=== PATIENT | female | born 1945 | race Caucasian/White ===

== ENCOUNTER 2018-04-23 07:34 | Day surgery (SDC) | payer MEDICARE, BC, SELFPAY ==
--- NOTE | 2018-04-21 08:32 | W.PIPPEYE ---
History of Present Illness Chief Complaint: Progressive decreased vision, right eye Narrative: The patient is a 72-year-old lady who presented with complaints of progressive decreased vision in both eyes at both distance and near. On examination she was noted to have bilateral nuclear and posterior subcapsular cataracts, right eye worse than left with visual acuity of 20/80 in the right eye and significant glare disability. The option of cataract surgery was offered to the patient and she wished to proceed. NOTE: The Chief Complaint, HPI, Past Medical History, Past Surgical History, Family History, Social History, Medications, and complete Ophthalmic Exam with detailed Assessment and Plan have already been documented in the patient's outpatient ophthalmic record and are not covered again in detail here. PFSH Medical History Nuclear sclerotic cataract of right eye (Acute) Posterior subcapsular age-related cataract, right eye (Acute) Surgical History Biopsy of breast (~2000) Breast, Mastectomy (~2000) Colonoscopy - MAC Family History Mother Essential hypertension Father Essential hypertension Heart disease Hyperlipidemia Sister Hyperlipidemia Brother No problems noted. Grandfather Stroke Grandfather No problems noted. Grandmother No problems noted. Grandmother No problems noted. Social History Smoking/Tobacco Use Status: Never Meds Home Medications Medication Instructions Recorded Confirmed Type aspirin [Ecotrin] 81 mg PO DAILY tab-cap 11/21/12 04/19/18 History omega-3 fatty acids-fish oil [Fish 1 ea PO DAILY 11/21/12 04/19/18 History Oil Softgel] vitamin B complex [B Complex] 1 ea PO DAILY 01/28/13 04/19/18 History calcium carbonate-vitamin D3 1 ea PO DAILY 02/24/14 04/19/18 History [Caltrate 600 + D Tablet] fluticasone-salmeterol [Advair 1 puff INHALATION DAILY #3 inhaler 06/10/15 04/19/18 History 250/50 Diskus] hydrochlorothiazide 12.5 mg PO DAILY #90 tab-cap 09/07/15 04/19/18 History albuterol sulfate [ProAir HFA] 2 puff INHALATION BID 04/19/18 04/19/18 History amoxicillin 500 mg PO .Q8H 04/19/18 04/19/18 History cholecalciferol (vitamin D3) 1,000 unit PO DAILY 04/19/18 04/19/18 History [Vitamin D3] desonide 1 applic TOPICAL DAILY 04/19/18 04/19/18 History fluocinolone 30 ml TOPICAL DIRECTED 04/19/18 04/19/18 History ketoconazole 1 applic TOPICAL .2-3 X WEEK 04/19/18 04/19/18 History magnesium mg PO DAILY 04/19/18 History yvjcomxn-yrv-nezf-FA-lutein 1 tab PO DAILY 04/19/18 04/19/18 History [Centrum Silver Women] pravastatin 20 mg PO DAILY 04/19/18 04/19/18 History triamcinolone acetonide 1 applic TOPICAL BID PRN 04/19/18 04/19/18 History vitamin E 400 unit PO DAILY 04/19/18 04/19/18 History Allergies Allergy/AdvReac Type Severity Reaction Status Date / Time Iodinated Contrast- Oral and Allergy Intermediate SOB Unverified 01/30/18 10:57 IV Dye [Iodinated Contrast Media - IV Dye] Exam OCULAR EXAM:: Most recent ocular examination reveals visual acuity of 20/80 OD, 20/25 OS. Pupils equal, round, and reactive without afferent pupillary defect. Intraocular pressure is 13 OD, 14 OS. Extraocular motility is normal. Slit-lamp examination shows pupils dilating to 5.5 mm OU. 2+ nuclear with 2+ posterior subcapsular cataract OD. 1+ nuclear with 1+ posterior subcapsular cataract OS. Funduscopic examination shows disc cupping of 0.3 OU with good color. The optic nerves have good perfusion and normal color. The retinal vasculature is normal without significant tortuosity or abnormality. The maculas are normal in appearance with normal contour and foveal reflex appropriate for age. The peripheral retina and vitreous are normal. BRIGHTNESS ACUITY TESTING (BAT):: Brightness acuity testing of the right eye off 20/80. Low 20/70. Medium 20/80. High 20/100. Assessment and Plan (1) Posterior subcapsular age-related cataract, right eye: Current visit: No Status: Acute Assessment: Visually significant cataract, right eye. Plan: Cataract extraction with intraocular lens implantation, right eye (2) Nuclear sclerotic cataract of right eye: Current visit: No Status: Acute Assessment: Visually significant cataract, right eye. Plan: Cataract extraction with intraocular lens implantation, right eye Note: NOTE:: The details of the planned surgery, including the risks, indications,limitations,expectations,outcome and possible complications were explained to the patient. The patient understands the complications including, but not limited to: infection, hemorrhage, posterior dislocation of the lens or nuclear fragments which may require the intervention of a vitreoretinal surgeon, possible loss of the eye, or from anesthetic complications. The patient has been made aware of the option of not having surgery, that vision following surgery may not be equal to that prior to surgery, and that the planned surgery may not achieve the intended results. Following this discussion, which the patient appeared to understand, the patient wishes to proceed with cataract surgery with lens implantation of the affected eye to improve and maximize vision.
--- NOTE | 2018-04-21 08:35 | POEE_ITS ---
History of Present Illness Chief Complaint: Progressive decreased vision, right eye Narrative: The patient is a 72-year-old lady who presented with complaints of progressive decreased vision in both eyes at both distance and near. On examination she was noted to have bilateral nuclear and posterior subcapsular ca taracts, right eye worse than left with visual acuity of 20/80 in the right eye and significant glare disability. The option of cataract surgery was offered to the patient and she wished to proceed. NOTE: The Chief Complaint, HPI, Past Medical History, Past Surgical History, Family History, Social History, Medications, and complete Ophthalmic Exam with detailed Assessment and Plan have already been documented in the patient's outpatient ophthalmic record and are not covered again in detail here. PFS Medical History Nuclear sclerotic cataract of right eye (Acute) Posterior subcapsular age-related cataract, right eye (Acute) Surgical History Biopsy of breast (~2000) Breast, Mastectomy (~2000) Colonoscopy - MAC Family History Mother Essential hypertension Father Essential hypertension Heart disease Hyperlipidemia Sister Hyperlipidemia Brother No problems noted. Grandfather Stroke Grandfather No problems noted. Grandmother No problems noted. Grandmother No problems noted. Social History Smoking/Tobacco Use Status: Never Meds Home Medications Medication Instructions Recorded Confirmed Type aspirin [Ecotrin] 81 mg PO DAILY tab-cap 11/21/12 04/19/18 History omega-3 fatty acids-fish oil [Fish 1 ea PO DAILY 11/21/12 04/19/18 History Oil Softgel] vitamin B complex [B Complex] 1 ea PO DAILY 01/28/13 04/19/18 History calcium carbonate-vitamin D3 1 ea PO DAILY 02/24/14 04/19/18 History [Caltrate 600 + D Tablet] fluticasone-salmeterol [Advair 1 puff INHALATION DAILY #3 inhaler 06/10/15 04/19/18 History 250/50 Diskus] hydrochlorothiazide 12.5 mg PO DAILY #90 tab-cap 09/07/15 04/19/18 History albuterol sulfate [ProAir HFA] 2 puff INHALATION BID 04/19/18 04/19/18 History amoxicillin 500 mg PO .Q8H 04/19/18 04/19/18 History cholecalciferol (vitamin D3) 1,000 unit PO DAILY 04/19/18 04/19/18 History [Vitamin D3] desonide 1 applic TOPICAL DAILY 04/19/18 04/19/18 History fluocinolone 30 ml TOPICAL DIRECTED 04/19/18 04/19/18 History ketoconazole 1 applic TOPICAL .2-3 X WEEK 04/19/18 04/19/18 History magnesium mg PO DAILY 04/19/18 History gdxxwuuo-vnc-qwhk-FA-lutein 1 tab PO DAILY 04/19/18 04/19/18 History [Centrum Silver Women] pravastatin 20 mg PO DAILY 04/19/18 04/19/18 History triamcinolone acetonide 1 applic TOPICAL BID PRN 04/19/18 04/19/18 History vitamin E 400 unit PO DAILY 04/19/18 04/19/18 History Allergies Allergy/AdvReac Type Severity Reaction Status Date / Time Iodinated Contrast- Oral and Allergy Intermediate SOB Unverified 01/30/18 10:57 IV Dye [Iodinated Contrast Media - IV Dye] Exam OCULAR EXAM:: Most recent ocular examination reveals visual acuity of 20/80 OD, 20/25 OS. Pupils equal, round, and reactive without afferent pupillary defect. Intraocular pressure is 13 OD, 14 OS. Extraocular motility is normal. Slit- lamp examination shows pupils dilating to 5.5 mm OU. 2+ nuclear with 2+ posterior subcapsular cataract OD. 1+ nuclear with 1+ posterior subcapsular cataract OS. Funduscopic examination shows disc cupping of 0.3 OU with good color. The optic nerves have good perfusion and normal color. The retinal vasculature is normal without significant tortuosity or abnormality. The maculas are normal in appearance with normal contour and foveal reflex appropriate for age. The peripheral retina and vitreous are normal. BRIGHTNESS ACUITY TESTING (BAT):: Brightness acuity testing of the right eye off 20/80. Low 20/70. Medium 20/80. High 20/100. Assessment and Plan (1) Posterior subcapsular age-related cataract, right eye: Current visit: No Status: Acute Assessment: Visually significant cataract, right eye. Plan: Cataract extraction with intraocular lens implantation, right eye (2) Nuclear sclerotic cataract of right eye: Current visit: No Status: Acute Assessment: Visually significant cataract, right eye. Plan: Cataract extraction with intraocular lens implantation, right eye Note: NOTE:: The details of the planned surgery, including the risks, indications,limitations,expectations,outcome and possible complications were explained to the patient. The patient understands the complications including, but not limited to: infection, hemorrhage, posterior dislocation of the lens or nuclear fragments which may require the intervention of a vitreoretinal surgeon, possible loss of the eye, or from anesthetic complications. The patient has been made aware of the option of not having surgery, that vision following surgery may not be equal to that prior to surgery, and that the planned surgery may not achieve the intended results. Following this discussion, which the patient appeared to understand, the patient wishes to proceed with cataract surgery with lens implantation of the affected eye to improve and maximize vision.
[2018-04-23] MEDS: Tetracaine 0.5% 4 ML BTL OD ×4 (07:54→09:02)
[2018-04-23] MEDS: Tropicam./Phenyleph. (1/2.5%) 5 ML BTL OD ×3 (07:55→08:10)
[2018-04-23 07:56] VITALS: BP 131/81; PULSE 75; RESP 16; TEMP 36.5; O2SAT 99
[2018-04-23] MEDS: Lidocaine 2% Jelly 6 ML SYR (09:02)
[2018-04-23] MEDS: Balanced Salt Soln.-PLUS 500 ML BAG (09:08)
[2018-04-23] MEDS: Lidocaine 1% Pres-Free 5 ML VIAL (09:08)
[2018-04-23] MEDS: Povidone-Iodine Ophth 30 ML BTL (09:26)
--- NOTE | 2018-04-23 09:38 | W.PM.DSUDISC ---
Discharge Plan Discharge Details Attending Provider: Isreal Hall Primary Care Provider: Ranjit Fischer Home Meds and New Rx's Prescriptions: No Action aspirin [Ecotrin Low Strength] 81 MG tablet,delayed release (DR/EC) 81 mg PO DAILY RF: 0 Fish Oil Extra Strength 1 EACH capsule 1 ea PO DAILY RF: 0 vitamin B complex [B-Complex] 1 EACH tablet 1 ea PO DAILY RF: 0 calcium carbonate-vitamin D3 [Caltrate with Vitamin D3] 1 EACH tablet 1 ea PO DAILY RF: 0 Advair Diskus 1 EACH blister with device 1 puff Inhalation DAILY Qty: 3 RF: 4 hydrochlorothiazide 12.5 MG tablet 12.5 mg PO DAILY Qty: 90 RF: 4 desonide 0.05 % Cream 1 applic TOPICAL DAILY RF: 0 ketoconazole 2 % Shampoo 1 applic TOPICAL .2-3 X WEEK RF: 0 fluocinolone 0.01 % Shampoo 30 ml TOPICAL DIRECTED RF: 0 triamcinolone acetonide 0.1 % Cream 1 applic TOPICAL BID PRNRF: 0 magnesium 250 mg Tablet PO DAILY RF: 0 pravastatin 20 mg Tablet 20 mg PO DAILY RF: 0 ProAir HFA 90 mcg/actuation Hfa Aerosol Inhaler 2 puff INHALATION BID RF: 0 vitamin E 400 unit Capsule 400 unit PO DAILY RF: 0 cholecalciferol (vitamin D3) [Vitamin D3] 1,000 unit Capsule 1,000 unit PO DAILY RF: 0 Centrum Silver Women 8 mg iron-400 mcg-300 mcg Tablet 1 tab PO DAILY RF: 0 amoxicillin 500 mg Capsule 500 mg PO .Q8H RF: 0 Discharge Instructions Stand Alone Forms: Post-op Topical Cataract, Lisa [place] (DSU) DS: Diagnosis Discharge Diagnosis (1) Status post cataract extraction and insertion of intraocular lens of right eye: Status: Acute
[2018-04-23 09:49] VITALS: BP 119/63; PULSE 85; RESP 16; TEMP 37; O2SAT 95
--- NOTE | 2018-04-23 16:07 | W.PM.OP ---
Date of service: 04/23/18 Time of Service: 09:30 Operative Note PRE-OP DIAGNOSIS: Cataract, right eye PROCEDURE: Cataract extraction using phacoemulsification with intraocular lens implant, right eye SURGEON: Isreal Hall ANESTHESIA: MAC and local (sub-tenon's anesthetic infiltration) ESTIMATED BLOOD LOSS: 0 PATHOLOGY: none sent Patient was transported to: same day Patient's condition: stable Implants: Jarad and Jarad Vision / [employer] Tecnis ZCB00 Indications: Progressive decreased vision due to cataract, right eye Procedure Description: CATARACT SURGERY OPERATIVE REPORT PREOPERATIVE DIAGNOSIS: Nuclear/posterior subcapsular cataract, right eye POSTOPERATIVE DIAGNOSIS: Same OPERATION: Cataract extraction using phacoemulsification with posterior chamber intraocular lens implant, right eye. IOL: IOL Bilingual Receptionist/Model: J[employer]J Vision / Y[employer]ecnis ZCB00 IOL Power: + 19.0 diopters IOL Serial Number: [id number] Optic Diameter: 6.0mm Haptic/Overall Diameter: 13.0mm PHACO INFO: GelacioLabMindson Vision System with OZil and Active Fluidics Cumulative Dispersed Energy (CDE): 9.70 seconds SURGEON: Isreal Hall MD, CHICA ANESTHESIA: Monitored Anesthesia Care (MAC), with local sub-tenon's anesthetic infiltration COMPLICATIONS: None SPECIMENS: None INDICATIONS FOR PROCEDURE: The patient is a 72-year-old lady with history of progressive decreased vision in both eyes at both distance and near, right eye worse than left. She was noted to have moderate nuclear and posterior subcapsular cataract of the right eye with visual acuity of 20/80. The option of cataract surgery was offered to the patient and she wished to proceed. PROCEDURE: The correct surgical eye was identified and marked as the right eye and the pupil was dilated in the preoperative area using mydriatics and cycloplegics. The dilated pupil size was 7.0 mm. Oral sedation was administered in the form of an Imprimis MKO Melt (midazolam 3mg/ketamine 25mg/ondansetron 2mg). The patient was brought to the operating room where cardiopulmonary monitoring was instituted and surgical time-out was performed, confirming the correct operative eye and IOL power. Topical anesthesia was administered and ophthalmic povidone-iodine 5% was instilled into the conjunctival fornices. Lidocaine gel was applied to the cornea and the yasmine-ocular area was prepped with Betadine 10% solution and draped in the usual sterile fashion for intraocular surgery, including an aperture drape. A Tegaderm transparent film dressing was cut in half and used to cover the lashes and lid margins. Care was taken to sequester the lashes and lid margins under the Tegaderm dressing. A lid speculum was placed between the lids of the operative eye and the Laura-Marcus operating microscope was maneuvered into position. Gabriel scissors were then used to make a conjunctival buttonhole approximately 6mm posterior to the limbus in the inferonasal quadrant. Blunt dissection was carried out to expose bare sclera, and a blunt-tipped sub-tenon?s anesthesia cannula was introduced and passed posteriorly along the globe where non-preserved plain lidocaine was injected into posterior sub-Tenon?s space. A sideport knife was used to make a paracentesis port inferiortemporally, and the anterior chamber was filled with Healon GV. A 2.4mm keratome knife was used to create a half-thickness groove at the limbus and then to construct a three-plane near-clear corneal tunnel extending 2.0mm into clear cornea in the superiortemporal position. . A flap was raised on the anterior capsule and capsulorhexis forceps were used to complete a continuous curvilinear capsulorhexis of 5.0 mm. Balanced salt solution was then used to perform cortical cleaving hydrodissection and nuclear hydrodelineation until the lens could be freely rotated within the capsular bag. The lens nucleus was then disassembled and removed within the capsular bag and iris plane using phacoemulsification. Residual cortical material was removed using the 45-degree angled silicone I/A tip with 0.3mm port. The posterior capsule was carefully polished to remove as much residual lens epithelial cells as safely possible. Extensive polishing was undertaken on the capsule polishing setting. Some residual central posterior subcapsular plaque could not be safely removed. The capsular bag was then inflated and the anterior chamber deepened with viscoelastic. The lens implant described above was inserted into the capsular bag using the YAA [place] Injector. A Kuglen hook was used to dial the IOL into position. Residual viscoelastic was then removed first from posterior to the IOL, then from the anterior chamber using the I/A handpiece. The lens implant was noted to center nicely within the capsular bag. The incisions were stromally hydrated, and the anterior chamber was reformed using BSS. Then 0.4cc of moxifloxacin 1.5mg/ml were injected into the capsular bag and anterior chamber. The incisions were checked with a Weck spear and found to be secure. Several drops of ophthalmic povidone-iodine 5% were then applied to the eye followed by two drops of Imprimis combination moxifloxacin/dexamethasone solution. The drapes were removed and a clear plastic protective eye shield was placed over the eye. The patient was then returned to Same Day Surgery in stable condition.
--- NOTE | 2018-04-23 16:13 | ROE_ITS ---
Date of service: 04/23/18 Time of Service: 09:30 Operative Note PRE-OP DIAGNOSIS: Cataract, right eye PROCEDURE: Cataract extraction using phacoemulsification with intraocular lens implant, right eye SURGEON: Isreal Hall ANESTHESIA: MAC and local (sub-tenon's anesthetic infiltration) ESTIMATED BLOOD LOSS: 0 PATHOLOGY: none sent Patient was transported to: same day Patient's condition: stable Implants: Jarad and Jarad Vision / [employer] Tecnis ZCB00 Indications: Progressive decreased vision due to cataract, right eye Procedure Description: CATARACT SURGERY OPERATIVE REPORT PREOPERATIVE DIAGNOSIS: Nuclear/posterior subcapsular cataract, right eye POSTOPERATIVE DIAGNOSIS: Same OPERATION: Cataract extraction using phacoemulsification with posterior chamber intraocular lens implant, right eye. IOL: IOL Property Field Inspector/Model: J&J Vision / [employer]nis ZCB00 IOL Power: + 19.0 diopters IOL Serial Number: [id number] Optic Diameter: 6.0mm Haptic/Overall Diameter: 13.0mm PHACO INFO: GelacioSideStepon Vision System with OZil and Active Fluidics Cumulative Dispersed Energy (CDE): 9.70 seconds SURGEON: Isreal Hall MD, CHICA ANESTHESIA: Monitored Anesthesia Care (MAC), with local sub-tenon's anesthetic infiltration COMPLICATIONS: None SPECIMENS: None INDICATIONS FOR PROCEDURE: The patient is a 72-year-old lady with history of progressive decreased vision in both eyes at both distance and near, right eye worse than left. She was noted to have moderate nuclear and posterior subcapsular cataract of the right eye with visual acuity of 20/80. The option of cataract surgery was offered to the patient and she wished to proceed. PROCEDURE: The correct surgical eye was identified and marked as the right eye and the pupil was dilated in the preoperative area using mydriatics and cycloplegics. The dilated pupil size was 7.0 mm. Oral sedation was administered in the form of an Imprimis MKO Melt (midazolam 3mg/ketamine 25mg/ondansetron 2mg). The patient was brought to the operating room where cardiopulmonary monitoring was instituted and surgical time-out was performed, confirming the correct operative eye and IOL power. Topical anesthesia was administered and ophthalmic povidone-iodine 5% was instilled into the conjunctival fornices. Lidocaine gel was applied to the cornea and the yasmine-ocular area was prepped with Betadine 10% solution and draped in the usual sterile fashion for intraocular surgery, including an aperture drape. A Tegaderm transparent film dressing was cut in half and used to cover the lashes and lid margins. Care was taken to sequester the lashes and lid margins under the Tegaderm dressing. A lid speculum was placed between the lids of the operative eye and the Laura-Marcus operating microscope was maneuvered into position. Gabriel scissors were then used to make a conjunctival buttonhole approximately 6mm posterior to the limbus in the inferonasal quadrant. Blunt dissection was carried out to expose bare sclera, and a blunt-tipped sub-tenon?s anesthesia cannula was introduced and passed posteriorly along the globe where non- preserved plain lidocaine was injected into posterior sub-Tenon?s space. A sideport knife was used to make a paracentesis port inferiortemporally, and the anterior chamber was filled with Healon GV. A 2.4mm keratome knife was used to create a half-thickness groove at the limbus and then to construct a three-plane near-clear corneal tunnel extending 2.0mm into clear cornea in the superiortemporal position. . A flap was raised on the anterior capsule and capsulorhexis forceps were used to complete a continuous curvilinear capsulorhexis of 5.0 mm. Balanced salt solution was then used to perform cortical cleaving h ydrodissection and nuclear hydrodelineation until the lens could be freely rotated within the capsular bag. The lens nucleus was then disassembled and removed within the capsular bag and iris plane using phacoemulsification. Residual cortical material was removed using the 45-degree angled silicone I/A tip with 0.3mm port. The posterior capsule was carefully polished to remove as much residual lens epithelial cells as safely possible. Extensive polishing was undertaken on the capsule polishing setting. Some residual central posterior subcapsular plaque could not be safely removed. The capsular bag was then inflated and the anterior chamber deepened with viscoelastic. The lens implant described above was inserted into the capsular bag using the YAA [place] Injector. A Kuglen hook was used to dial the IOL into position. Residual viscoelastic was then removed first from posterior to the IOL, then from the anterior chamber using the I/A handpiece. The lens implant was noted to center nicely within the capsular bag. The incisions were stromally hydrated, and the anterior chamber was reformed using BSS. Then 0.4cc of moxifloxacin 1.5mg/ml were injected into the capsular bag and anterior chamber. The incisions were checked with a Weck spear and found to be secure. Several drops of ophthalmic povidone-iodine 5% were then applied to the eye followed by two drops of Imprimis combination moxifloxacin/dexamethasone solution. The drapes were removed and a clear plastic protective eye shield was placed over the eye. The patient was then returned to Same Day Surgery in stable condition.
== END 2018-04-23 10:04 | disposition home or self-care (01) ==
LOC: SUR 07:34
PROVIDERS: PCP Family Medicine; Visit Provider Ophthalmology
PROC: (CPT 66984; principal; 2018-04-23 09:30)
DX: H25.811 Combined forms of age-related cataract, right eye (principal)
CPT/HCPCS: 66984; V2632

== ENCOUNTER 2018-05-02 02:30 | Outpatient (CLI) | payer MEDICARE, BC, SELFPAY ==
[2018-05-02 10:29] LABS: Cholesterol 236 mg/dL (50-200); HDL Cholesterol 82 mg/dL (40-60); LDL CHOLESTEROL 135 mg/dL (<100); Triglyceride 79 mg/dL (30-150)
== END 2018-05-02 02:50 ==
PROVIDERS: Family Medicine; PCP Family Medicine; Visit Provider Family Medicine
DX: E78.5 Hyperlipidemia, unspecified (principal)
CPT/HCPCS: 36415; 80061; 83721

== ENCOUNTER 2018-11-23 02:19 | Outpatient (CLI) | payer MEDICARE, BC, SELFPAY ==
--- NOTE | 2018-11-23 09:30 | ETT_ITS ---
*[facility]* *[facility]* [address] [place] [address] Stress Electrocardiography Ramses protocol Date of study: 11/23/2018 *PATIENT PRESENTATION* Height: 157.5cm (62in) Blood Pressure: Weight: 54.5kg (120lb) BSA: 1.55m^2 Ordering physician: Ranjit Fischer Impressions: Normal study after maximal exercise. Indication: R06.09. History: REASON FOR TESTING: DYSPNEA ON EXERTION AND JAW PAIN. THE JAW PAIN IS USUALLY AT REST, AND IS BILATERAL WITHOUT ANY RADIATION OF THE PAIN. THE PAIN HAD BEEN HAPPINING 3-5 YEARS AGO, THEN STOPPED UNTIL RECURRING IN THE LAST 6 MONTHS ONLY ONCE. PMH: CATARACTS. OSTEOPENIA, BREAST CANCER, HYPERLIPIDEMIA, ESSENTIAL HYPERTENSION, DIVERTICULOSIS, ASTHMA. FAMILY HX: BROTHER- AL AND CVA, AICD/PACEMAKER. FATHER- HYPERTENSION, CAD, HYPERLIPIDEMIA. MOTHER- HYPERTENSION. SISTER-HYPERLIPIDEMIA. EXCERCISE: WALK, STRENGTH TRAINING 3X/WEEK. WELLNESS PROGRAM AT [facility] . SMOKING:NEVER SMOKER. Risk factors: Family history of coronary artery disease. Dyslipidemia. Cholesterol: 264mg/dl. HDL: 82mg/dl. LDL: 135mg/dl. Triglycerides: 79mg/dl. ALLERGIES: IODINATED CONTRAST MEDIA. MEDICATIONS:VIT E 400 UNITS DAILY, VIT B COMPLEX 1 DAILY, TRIAMSINOLONE CREAM NEEDED, PRAVASTATIN 20 MG DAILY, OMEGA-3 FATTY ACIDS 1 DAILY, CENTRUM SILVER WOMEN 1 DAILY, MAGNESIUM 1 DAILY, KETOCONAZOLE 1 APPLIC TOPICAL 2-3X/WEEK, HYDROCHLOROTHIAZIDE 12.5 MG DAILY, ADVAIR 250/50 DISKUS 1 PUFF DAILY, FLUOCINOLONE 1 APPLIC DAILY, DESONIDE TOPICAL DAILY, VIT D3 1000 UNITS DAILY,ASPIRIN 81 MG DAILY, ALBUTEROL SULFATE 2 PUFFS BID. Protocol: Ramses protocol. Baseline ECG: LAST EKG-08/11/14. SINUS RHYTHM, HR 67. TODAY'S EKG-SINUS RHYTHM, HR 74. Stress protocol: + +---+ +---+ !Stage !HR !BP (mmHg) !Sat! + +---+ +---+ !Baseline supine !74 !168/94 (119)!---! + +---+ +---+ !Baseline standing !86 !170/86 (114)!97%! + +---+ +---+ !Stage I; 1.7mph, 10degrees; 3 min !111!174/92 (119)!95%! + +---+ +---+ !Stage II; 2.5mph, 12degrees; 3 min!130!180/86 (117)!96%! + +---+ +---+ !Recovery; 1 min !150!192/98 (129)!---! + +---+ +---+ !Recovery; 3 min !83 !178/76 (110)!---! + +---+ +---+ !Recovery; 6 min !77 !176/82 (113)!---! + +---+ +---+ * Stress results: The rate-pressure product for the peak heart rate and blood pressure was 44174nr Hg/min. Stress ECG: EXCERCISE TESTING ENDED IN 7 MINS, 39 SECS. WHEN MAX HR EXCEEDED, MAX HR WAS 150, 101% OF TARGET. HYPERTENSIVE AT BASELINE, WHTI A HYPERTENSIVE BLOOD PRESSURE RESPONSE. METS: 9.62 ECTOPY: NONE NOTED. ANGINA: NO REPORTED CHEST PAIN OR PRESSURE. ISCHEMIA: NO ISCHEMIC CHANGES NOTED. FUNCTIONAL CAPACITY: ABOVE AVERAGE CAPACITY. Study data: Lee Ann Angel MD supervised and was readily available during the procedure. This study was interpreted by [facility]. Study status: Routine. Consent: The risks, benefits, and alternatives to the procedure were explained to the patient and informed consent was obtained. Procedure: Initial setup. A baseline ECG was recorded. Surface ECG leads and manual cuff blood pressure measurements were monitored. Heart sounds: Normal. Lung sounds: Normal. Treadmill exercise testing was performed using the Ramses protocol. Study completion: The patient tolerated the procedure well and was discharged from the lab. Discharge: The patient left the laboratory in stable condition. Birthdate: Patient birthdate: 1945. Sex: Gender: female. Study date: Study date: 11/23/2018. Study time: 00:01 AM. Signature Documentation: The Stress ECG portion of this study was interpreted by Lee Ann Angel MD. Electronically signed by Lee Ann Angel 11/23/2018 10:24
[2018-11-23 10:47] LABS: Abs Immature Grans 0.01 k/cumm (0.0-0.09); Absolute Basophil Count 0.04 k/cumm (0.0-0.2); Absolute Eosinophil Count 0.14 k/cumm (0.0-0.7); Absolute Lymphocyte Count 1.12 k/cumm (1.2-3.4); Absolute Monocyte Count 0.47 k/cumm (0.11-0.7); Absolute Neutrophil Count 3.55 k/cumm (1.2-6.7); Basophils % 0.8; Eosinophils % 2.6; HCT 43.4 % (36.0-46.0); HGB 14.8 g/dL (12.0-15.5); Immature Grans % 0.2; Mean Corp. HGB Concentration 34.1 g/dL (32.0-36.0); Mean Corpuscular Hemoglobin 30.7 pg (27.0-33.0); Mean Platelet Volume 9.9 fL (8.0-11.0); Monocytes % 8.8; Neutrophils % 66.6; Platelet Count 300 x1000/uL (130-400); RBC 4.82 m/cumm (4.00-5.20); RBC Distribution Width 12.8 % (11.7-14.6); White Blood Cell Count 5.33 k/cumm (4.4-10.8)
[2018-11-23 11:36] LABS: Calculated LDL 143 mg/dL; Cholesterol 247 mg/dL (50-200); HDL Cholesterol 80 mg/dL (40-60); Triglyceride 123 mg/dL (30-150)
== END 2018-11-23 02:39 ==
PROVIDERS: PCP Family Medicine; Visit Provider Family Medicine
DX: R06.09 Other forms of dyspnea (principal); R68.84 Jaw pain; E78.5 Hyperlipidemia, unspecified; R19.7 Diarrhea, unspecified
CPT/HCPCS: 36415; 80061; 83721; 93016; 93018; 85025; 93017

== ENCOUNTER 2018-12-07 04:10 | Outpatient (CLI) | payer MEDICARE, BC, SELFPAY ==
--- NOTE | 2018-12-07 | PFT_ITS ---
PULMONARY FUNCTION TEST REPORT Patient - Linda Serrano DATE OF SERVICE December 07, 2018 REQUESTING PROVIDER Ranjit Fischer M.D. INTERPRETATION OF STUDY Spirometry shows severe obstructive airways disease with significant bronchodilator response.. LUNG VOLUMES - Lung volumes show no evidence of restriction. DIFFUSION CAPACITY- Mildly reduced, which is normal when corrected to alveolar volume. AIRWAY RESISTANCE - Elevated. IMPRESSION Severe obstructive airways disease with significant bronchodilator response. This is associated with mild diffusion defect. Clinical correlation recommended. Yissel Cruz M.D. ANDREA/ T- 12/10/18
[2018-12-07] MEDS: Inhaler, Assist Device 1 EACH MC (13:42)
[2018-12-07] MEDS: Albuterol HFA 18 GM 200 PUFF INH IH (13:42)
== END 2018-12-07 04:30 ==
PROVIDERS: PCP Family Medicine; Visit Provider Family Medicine
DX: R06.09 Other forms of dyspnea (principal); Z87.09 Personal history of other diseases of the respiratory system
CPT/HCPCS: 94060; 94150; 94726; 94729

== ENCOUNTER 2018-12-11 01:06 | Outpatient (CLI) | payer MEDICARE, BC, SELFPAY ==
--- NOTE | 2018-12-11 07:30 | MERGE_ITS ---
*[facility]* *[facility]* [address] [place] [address] Date of study: 12/11/2018 Transthoracic Echocardiography M-mode, complete 2D, complete spectral Doppler, and color Doppler *STUDY CONCLUSIONS* Summary: 1. Left ventricle: The cavity size was normal. Wall thickness was normal. Systolic function was normal. The estimated ejection fraction was 60-65%. Wall motion was normal; there were no regional wall motion abnormalities. 2. Right ventricle: The cavity size was normal. Systolic function was normal. 3. Left atrium: The atrium was mildly dilated. 4. Inferior vena cava: The vessel was patent and normal in size. The respirophasic diameter changes were in the normal range (greater than or equal to 50%), consistent with normal central venous pressure. *PATIENT PRESENTATION* Height: 154.9cm (61in ) S/D Pressure: 142 / 79 Weight: 54.4kg (119.7lb ) BSA: 1.54m^2 Test start time: 07:40 AM. Test stop time: 08:40 AM. 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 This study was interpreted by [facility]. Pertinent images and digital data are archived for permanent storage and are available for subsequent review. No prior study was available for comparison. Study status: Routine. Transthoracic echocardiography. M-mode, complete 2D, complete spectral Doppler, and color Doppler. A Transthoracic Echocardiogram was performed. Scanning was performed from the parasternal, apical, subcostal, and suprasternal notch acoustic windows. Images were obtained using an [id number] cardiac ultrasound machine. Image quality was adequate. Study completion: The patient tolerated the procedure well. There were no complications. History: PMH: Dyspnea on exertion R06.09. *CARDIAC ANATOMY* Left ventricle: The cavity size was normal. Wall thickness was normal. Systolic function was normal. The estimated ejection fraction was 60-65%. Wall motion was normal; there were no regional wall motion abnormalities. Findings consistent with diastolic dysfunction. There was no evidence of elevated ventricular filling pressure by Doppler parameters. Aortic valve: Trileaflet; mildly thickened leaflets. Mobility was not restricted. Doppler: Transvalvular velocity was within the normal range. There was no stenosis. There was no significant regurgitation. VTI ratio of LVOT to aortic valve: 0.7. Valve area (VTI): 1.9cm^2. Indexed valve area (VTI): 1.3cm^2/m^2. Peak velocity ratio of LVOT to aortic valve: 0.71. Valve area (Vmax): 2cm^2. Indexed valve area (Vmax): 1.3cm^2/m^2. Mean velocity ratio of LVOT to aortic valve: 0.72. Valve area (Vmean): 2cm^2. Indexed valve area (Vmean): 1.3cm^2/m^2. Mean gradient (S): 4.2mm Hg. Peak gradient (S): 7.7mm Hg. Aorta: Aortic root: The aortic root was normal in size. Ascending aorta: The ascending aorta was normal in size. Mitral valve: Mildly calcified annulus. Mildly thickened leaflets. Mobility was not restricted. Doppler: Transvalvular velocity was within the normal range. There was no evidence for stenosis. There was trivial regurgitation. Valve area by pressure half-time: 2.6cm^2. Indexed valve area by pressure half-time: 1.7cm^2/m^2. Left atrium: The atrium was mildly dilated. Right ventricle: The cavity size was normal. Systolic function was normal. Pulmonic valve: The pulmonary valve appears to be grossly normal. Doppler: Transvalvular velocity was within the normal range. There was no evidence for stenosis. There was trivial regurgitation. Tricuspid valve: Structurally normal valve. Doppler: Transvalvular velocity was within the normal range. There was no evidence for stenosis. There was trivial regurgitation. Pulmonary artery: Poorly visualized. Pulmonary systolic pressure was in the range of 35mm Hg to 40mm Hg. Right atrium: The atrium was normal in size. Pericardium: There was no pericardial effusion. Systemic veins: Inferior vena cava: Well visualized. The vessel was patent and normal in size. The respirophasic diameter changes were in the normal range (greater than or equal to 50%), consistent with normal central venous pressure. Baseline ECG: Normal sinus rhythm. Measurements Left ventricle Value Reference LV ID, ED, PLAX 4.7 cm 3.5 - 6.0 LV ID, ES, PLAX 3.1 cm 2.1 - 4.0 LV PW thickness, ED, PLAX 0.9 cm LV end-diastolic volume, 1-p A2C 78 ml LV ejection fraction, 1-p A2C 56 % LV end-diastolic volume, 1-p A4C 69 ml LV ejection fraction, 1-p A4C 66 % LV e', lateral 0.072 m/sec LV E/e', lateral 7 LV e', medial 0.058 m/sec LV E/e', medial 9 LV e', average 0.065 m/sec LV E/e', average 8 Ventricular septum Value Reference IVS thickness, ED, PLAX 1.0 cm LVOT Value Reference LVOT ID, A-P 1.9 cm LVOT area 2.8 cm^2 LVOT peak velocity, S 0.99 m/sec LVOT mean velocity, S 0.71 m/sec LVOT VTI, S 22.9 cm LVOT peak gradient, S 3.9 mm Hg LVOT mean gradient, S 2.2 mm Hg Stroke volume (SV), LVOT DP 64 ml Stroke index (SV/bsa), LVOT DP 41 ml/m^2 Aortic valve Value Reference Aortic valve peak velocity, S 1.4 m/sec Aortic valve mean velocity, S 1 m/sec Aortic valve VTI, S 33.0 cm Aortic mean gradient, S 4.2 mm Hg Aortic peak gradient, S 7.7 mm Hg VTI ratio, LVOT/AV 0.7 Aortic valve area, VTI 1.9 cm^2 Velocity ratio, peak, LVOT/AV 0.71 Aortic valve area, peak velocity 2 cm^2 Velocity ratio, mean, LVOT/AV 0.72 Aortic valve area, mean velocity 2 cm^2 Aortic valve area/bsa, mean velocity 1.3 cm^2/m^2 Aorta Value Reference Aortic root ID, ED 2.9 cm Ascending aorta ID, A-P, S 3.3 cm Left atrium Value Reference LA ID, A-P, ES 3.9 cm LA ID/bsa, A-P (H) 2.6 cm/m^2 <=2.2 LA volume/bsa, ES, 1-p A4C 35 ml/m^2 LA volume, ES, 2-p 55 ml LA volume/bsa, ES, 2-p 36 ml/m^2 LA/aortic root ratio 1.37 Mitral valve Value Reference Mitral E-wave peak velocity 0.54 m/sec Mitral A-wave peak velocity 0.85 m/sec Mitral deceleration time (H) 294 ms 150 - 230 Mitral pressure half-time 85 ms Mitral E/A ratio, peak 0.64 Mitral valve area, PHT, DP 2.6 cm^2 Pulmonary veins Value Reference Pulmonary vein peak velocity, S 0.75 m/sec Pulmonary vein peak velocity, D 0.54 m/sec Pulmonary vein velocity ratio, peak, 1.37 S/D Pulmonary vein A-wave reversal peak 0.37 m/sec velocity Pulmonary vein A-wave reversal 180 ms duration Tricuspid valve Value Reference Tricuspid regurg peak velocity 3 m/sec Tricuspid peak RV-RA gradient 35.2 mm Hg Right atrium Value Reference RA area, ES, A4C 16 cm^2 8.3 - 19.5 Legend: (L) and (H) dolores values outside specified reference range. I have personally reviewed the images and have reviewed and edited the reported findings. Electronically signed by Lee Ann Angel 12/11/2018 11:57
== END 2018-12-11 01:26 ==
PROVIDERS: PCP Family Medicine; Visit Provider Family Medicine
DX: R06.09 Other forms of dyspnea (principal); I10 Essential (primary) hypertension; E78.5 Hyperlipidemia, unspecified
CPT/HCPCS: 93306

== ENCOUNTER 2019-02-04 16:18 | Outpatient (CLI) | payer MEDICARE, BC, SELFPAY ==
--- NOTE | 2019-02-04 15:30 | DI.RAD_ITS ---
EXAM: XR PELVIS AP INDICATION: PAIN AFTER FALL R52. COMPARISON: RIGHT HIP COMPLETE from 11/28/2011 TECHNIQUE: 2D digital imaging was performed. FINDINGS: The pelvic bones are intact. There is no evidence of a hip fracture.
== END 2019-02-04 16:38 ==
PROVIDERS: PCP Nurse Practitioner Family; Visit Provider Internal Medicine
DX: M25.551 Pain in right hip (principal)
CPT/HCPCS: 72170

== ENCOUNTER 2019-03-04 08:02 | Outpatient (CLI) | payer MEDICARE, BC, SELFPAY ==
[2019-03-05 10:07] LABS: Alpha 1 Antitrypsin,Serum 152 mg/dL (90-200)
== END 2019-03-04 08:22 ==
PROVIDERS: PCP Nurse Practitioner Family; Visit Provider Nurse Practitioner Family
DX: J44.9 Chronic obstructive pulmonary disease, unspecified (principal)
CPT/HCPCS: 36415; 82103

== ENCOUNTER 2019-05-31 01:15 | Outpatient (CLI) | payer MEDICARE, BC, SELFPAY ==
[2019-05-31 11:52] LABS: HCT 41.3 % (36.0-46.0); Mean Corp. HGB Concentration 33.9 g/dL (32.0-36.0); Mean Corpuscular Hemoglobin 30.8 pg (27.0-33.0); Mean Platelet Volume 9.8 fL (8.0-11.0); Platelet Count 318 x1000/uL (130-400); RBC 4.54 m/cumm (4.00-5.20); RBC Distribution Width 13.1 % (11.7-14.6)
[2019-06-03 11:23] LABS: IgE 15 IU/mL (<158)
== END 2019-05-31 01:35 ==
PROVIDERS: PCP Nurse Practitioner Family; Visit Provider Internal Medicine
DX: J45.909 Unspecified asthma, uncomplicated (principal)
CPT/HCPCS: 36415; 85027; 82785

== ENCOUNTER 2019-06-04 08:45 | Outpatient (CLI) | payer MEDICARE, BC, SELFPAY ==
[2019-06-04 09:14] LABS: Abs Immature Grans 0.01 k/cumm (0.0-0.09); Absolute Basophil Count 0.04 k/cumm (0.0-0.2); Absolute Eosinophil Count 0.24 k/cumm (0.0-0.7); Absolute Lymphocyte Count 1.36 k/cumm (1.2-3.4); Absolute Neutrophil Count 5.17 k/cumm (1.2-6.7); Basophils % 0.5; Eosinophils % 3.1; HCT 43.6 % (36.0-46.0); HGB 14.5 g/dL (12.0-15.5); Immature Grans % 0.1 %; Lymphocytes % 17.8; Mean Corp. HGB Concentration 33.3 g/dL (32.0-36.0); Mean Corpuscular Hemoglobin 30.4 pg (27.0-33.0); Mean Corpuscular Volume 91.4 fL (80-95); Mean Platelet Volume 9.8 fL (8.0-11.0); Monocytes % 10.5; Platelet Count 308 x1000/uL (130-400); RBC 4.77 m/cumm (4.00-5.20); RBC Distribution Width 13.3 % (11.7-14.6); White Blood Cell Count 7.62 k/cumm (4.4-10.8)
== END 2019-06-04 09:05 ==
PROVIDERS: PCP Nurse Practitioner Family; Visit Provider Internal Medicine
DX: J45.909 Unspecified asthma, uncomplicated (principal)
CPT/HCPCS: 36415; 85025

== ENCOUNTER 2019-09-29 22:08 | Emergency (ER) | payer MEDICARE, BC, SELFPAY ==
[2019-09-29 22:23] VITALS: BP 174/86; PULSE 82; RESP 21; TEMP 36.6; O2SAT 96
--- NOTE | 2019-09-29 22:30 | DI.CT_ITS ---
EXAM: CT ABDOMEN PELVIS W CLINICAL HISTORY: LLQ pain, loose stool, hx of diverticulosis. TECHNIQUE: Imaging Protocol: Axial computed tomography images with coronal and sagittal reformatted images were created and reviewed CONTRAST MATERIAL: Intravenous: Omnipaque 350 Contrast volume:80 ml Oral: / no COMPARISON: CT ABD PELVIS WITH CONTRAST from 03/17/2011 MR MRI - LUMBAR SPINE WO CONTRAST from 09/26/2011 CR XR PELVIS AP from 02/04/2019 FINDINGS: ABDOMEN: Lung Bases: Normal where visualized. Liver: Normal density. No measurable mass. Gallbladder and biliary tract: No radiodense calculus or dilation. Pancreas: The pancreas is again noted to be atrophic. The pancreatic duct is dilated. There are few punctate pancreatic calcifications. There is some fluid around the tail of the pancreas. The findi ngs could represent acute on chronic pancreatitis. Spleen: Normal. Kidneys: Normal size, contour and axis. No radiodense stones or obstructive uropathy. No masses seen. Adrenal glands: No masses seen. Abdominal Aorta: Abdominal portion non-dilated. PELVIS: Bladder: Symmetric distention, no gross wall thickening. Bowel: There is large quantity of stool seen in the cecum and ascending colon. Diverticulosis is not ed of the descending and sigmoid colon. There is no evidence of diverticulitis. There is mild nonspe cific dilatation of a few loops of small bowel low in the pelvis. No specific findings to suggest a o bstruction. Bones: Scoliosis and degenerative changes. Mild T10 compression fracture, unchanged from MRI from 20 12. Old right pubic ramus fracture. Reproductive organs: Uterine fibroids, unchanged. Lymph nodes: Unremarkable. Impression: Fluid around the tail of the pancreas may indicate acute pancreatitis. There is chronic dilatation o f the pancreatic duct. RADIATION DOSE DELIVERED: 741.47mGy.cm Total DLP DATA REPOSITORY: All CT scans at this facility are submitted to the National Radiology Data Registry (NRDR) Dose Index Registry (DIR) with the [employer] (ACR). RADIATION OPTIMIZATION: All CT scans at this facility use at least one of these dose optimization te chniques: automated exposure control; mA and/or kV adjustment per patient size (includes targeted exa ms where dose is matched to clinical indication); or iterative reconstruction.
--- NOTE | 2019-09-29 22:52 | W.ED.GENAD ---
Discharge Plan Disposition Patient Disposition: HOME Condition: Stable Discharge Details Chief Complaint: Abd Prob Clinical Impression: Ileus, Chronic pancreatitis Primary Care Provider: Zeny James ED Provider: Narciso Soni Home Meds and New Rx's Prescriptions: Continued aspirin [Ecotrin Low Strength] 81 MG tablet,delayed release (DR/EC) 81 mg PO DAILY RF: 0 vitamin B complex [B-Complex] 1 EACH tablet 1 ea PO DAILY RF: 0 calcium carbonate-vitamin D3 [Caltrate with Vitamin D3] 1 EACH tablet 1 ea PO DAILY RF: 0 hydrochlorothiazide 12.5 MG tablet 12.5 mg PO DAILY Qty: 90 RF: 4 omega 0-lfm-epr-fish oil [Fish Oil] 1,000 mg (120 mg-180 mg) capsule 2 cap PO DAILY RF: 0 magnesium oxide 400 mg magnesium capsule 400 mg PO DAILY RF: 0 fluticasone propion-salmeterol [Wixela Inhub] 500-50 mcg/dose blister with device 1 inh IH BID Qty: 60 RF: 4 fluticasone propionate [Flonase Allergy Relief] 50 mcg/actuation spray,suspension 2 spray TALIA DAILY PRNRF: 0 desonide 0.05 % Cream 1 applic TOPICAL DAILY RF: 0 pravastatin 20 mg Tablet 20 mg PO DAILY RF: 0 albuterol sulfate [ProAir HFA] 90 mcg/actuation Hfa Aerosol Inhaler 2 puff INHALATION BID RF: 0 vitamin E 400 unit Capsule 400 unit PO DAILY RF: 0 cholecalciferol (vitamin D3) [Vitamin D3] 1,000 unit Capsule 1,000 unit PO DAILY RF: 0 Centrum Silver Women 8 mg iron-400 mcg-300 mcg Tablet 1 tab PO DAILY RF: 0 Discharge Instructions Instructions: Ileus (ED) Additional Instructions: While it is not ideal for you to go home, it is what you have chosen. It is extremely important that if you have any worsening of your symptoms or vomiting or continued pain that you return immediately. For the next 24 to 36 hours please only have small frequent sips of liquids or Jell-O. This can include broth Gatorade Powerade water or tea. If your symptoms begin to improve you can then transition to taking more solid foods like applesauce, pudding, and small bites of crackers. If you do well with this for 24 hours you can then transition to eating larger amounts of crackers, bread, mashed potatoes and rice. Gradually continue in this way. If you notice any worsening of your symptoms, or any new symptoms such as vomiting, diarrhea, fever, chills, shortness of breath, chest pain, numbness, weakness, or fainting , please return immediately to the emergency department for reevaluation. Please follow up with your primary care provider as soon as possible for reassessment and reevaluation. As always, it was a pleasure participating in your medical care today. Referrals: Zeny James NP [Primary Care Provider] - Discharge Data Discharge Date/Time-TO BE ENTERED AT DEPARTURE: 09/30/19 00:55 Medical Decision Making <LUCIO Greenwood - Last Filed: 09/30/19 13:54> 73-year-old female with history of GERD, COPD, hyperlipidemia, hypertension, diverticulosis, right breast cancer, presents with 1 day history of left lower quadrant discomfort and a loose stool. Denies any other symptoms. Patient appears well, nontoxic. Abdomen certainly does not seem to be surgical in nature. I feel as though the most likely diagnosis is diverticulitis however certainly cannot rule out UTI, renal stone, appendicitis, colitis, etc. Pain is not out of proportion, likely no ischemic bowel. Will obtain routine laboratory values and obtain CT imaging. We discussed her contrast dye allergy. She denies any allergy. She reports that when she had her CT she felt a little funny, took a puff of her rescue inhaler and felt perfectly fine. She feels as though she can safely take IV contrast and understands that the imaging is better quality. Laboratory values reveal white blood cell count of 11.7 hematocrit 42.2 hemoglobin 14.7 platelet count 311. Sodium 134 potassium 3.4 creatinine 0.81, GFR greater than 60. Urine is yellow, clear, 40 ketones. Small leuk esterase. 0-2 white cells, negative red cells. Patient given 0.5 mg IV Dilaudid Awaiting CT of abdomen and pelvis with contrast. Medical Records Medical records reviewed: Yes I reviewed the patient's medical records. Lab Data Lab results reviewed: Yes I reviewed the patient's lab results. Lab results narrative: 09/29/19 22:56 Urine - Reflex from Ua Urine Culture - Pending Laboratory Tests Range/Units 09/29/19 09/29/19 09/29/19 22:55 22:55 22:56 WBC (4.4-10.8) k/cumm 11.70 H RBC (4.00-5.20) m/cumm 4.71 Hgb (12.0-15.5) g/dL 14.7 Hct (36.0-46.0) % 42.2 MCV (80-95) fL 89.6 MCH (27.0-33.0) pg 31.2 MCHC (32.0-36.0) g/dL 34.8 RDW (11.7-14.6) % 12.7 Plt Count (130-400) x1000/uL 311 MPV (8.0-11.0) fL 10.2 Immature Gran % % 0.2 Neutrophils % 74.5 Lymphocytes % 16.0 Monocytes % 8.3 Eosinophils % 0.7 Basophils % 0.3 Absolute Neutrophils (1.2-6.7) k/cumm 8.72 H Absolute Lymphocytes (1.2-3.4) k/cumm 1.87 Absolute Monocytes (0.11-0.7) k/cumm 0.97 H Absolute Eosinophils (0.0-0.7) k/cumm 0.08 Absolute Basophils (0.0-0.2) k/cumm 0.04 Sodium (136-145) mmol/L 134 L Potassium (3.5-5.1) mmol/L 3.4 L Chloride (98-107) mmol/L 96 L Carbon Dioxide (21.0-32.0) mmol/L 29.9 Anion Gap (3-11) mmol/L 8.1 BUN (7-18) mg/dL 11 Creatinine (0.55-1.02) mg/dL 0.81 Estimated GFR/1.73 m2 (mL/min/1.73m2) >= 60.00 Glucose (74-106) mg/dL 125 H Calcium (8.5-10.1) mg/dL 9.9 Total Bilirubin (0.2-1.0) mg/dL 0.8 AST (15-37) U/L 29 ALT (14-59) U/L 38 Alkaline Phosphatase (46-116) U/L 90 Total Protein (6.4-8.2) g/dL 7.7 Albumin (3.4-5.0) g/dL 4.2 Lipase (73-393) U/L 164 Urine Color (Yellow) Yellow Urine Clarity (Clear) Clear Urine pH (5-8) 8.5 H Ur Specific Malone (1.005-1.025) 1.020 Urine Protein (Negative) mg/dL Negative Urine Ketones (Negative) mg/dL 40 H Urine Blood (Negative) Negative Urine Nitrite (Negative) Negative Urine Bilirubin (Negative) Negative Urine Urobilinogen (Up TO 0.2) EU/dL 0.2 Ur Leukocyte Esterase (Negative) Small H Urine RBC (0-2) HPF Negative Urine WBC (0-5) HPF 0-2 Ur Epithelial Cells (Negative) HPF Negative Urine Crystals (Negative) HPF Rare amorphous Urine Bacteria (Negative) HPF Rare Urine Casts (Negative) LPF Negative Urine Mucus (Negative) Negative Urine Other (Negative) Negative Ur Culture Indicated? Yes Urine Glucose (Negative) mg/dL Negative <Narciso Soni DO - Last Filed: 09/30/19 01:01> Patient was signed out to me by my colleague Jaime, please refer to his HPI assessment plan physical exam. Signout was for reevaluation after imaging results. Imaging results have returned, CT scan shows mild pancreatic ductal dilatation with some other slight abnormalities concerning for mild acute on chronic pancreatitis. Also evidence of mild ileus versus partial early obstruction of the small bowel. No large obstruction. Is also small uterine myoma that is noted as well. On reassessment the patient's pain has resolved. She is able to tolerate small sips of water well without difficulty. She has had no vomiting whatsoever. Laboratory work-up shows no significant abnormalities, electrolytes are stable, renal function good. Bilirubin alk phos AST ALT and lipase are all normal. Urine shows no signs of infection. Does appear mildly dehydrated, she has been rehydrated with a liter of normal saline. She tolerated CT scan well otherwise. Repeat abdominal exam shows no evidence of acute surgical abdomen. With the patient's findings in the absence of vomiting, and her ability to tolerate p.o. currently, I did discuss with the patient admission/observation to the hospital , and at this time through notable discussion, weighing the risks and benefits, utilizing a shared decision making process, and with a very clear discussion on the benefit of admission and the risks associated with discharge including the unlikely but potential worst case scenario of or lifelong disability the patient has refused admission and would like to go home. Patient is of a appropriate age to make decisions. The patient is of sound mind, appears clinically sober, and has capacity to make decisions by my clinical exam. Respecting the patient's wishes, they will be discharged home. The patient does refer to social home concerns as to her reason for leaving. Of note she had no complications with the IV contrast, this was removed from her allergy list. We will discharge the patient respecting her wishes. I did discuss my recommendations for fluids for the next 24 hours followed by a gradual increase of soft foods. The patient has made it clear that she will return promptly if she has any return or worsening of her symptoms or any vomiting whatsoever. I made it very clear that I am available at any time during the night for contact to discuss her symptoms. I have extensively reviewed the treatment plan and discharge instructions with the patient. I have addressed all patient concerns at this time. The patient was made aware of what symptoms to monitor for that would warrant a return to the emergency department. Discussed the plan with the patient, they demonstrate verbal understanding and agreement with our assessment and plan at this time. Additionally I also did discuss the findings of the uterine myoma, and the importance of close follow-up with her PCP in regards to this and the chronic pancreatitis. Of note with her labs normal her symptoms certainly appear clinically inconsistent with acute pancreatitis or acute obstruction of the gallbladder. FINDINGS: Liver: Normal. No mass. Gallbladder and bile ducts: Normal. No calcified stones. No ductal dilation. Pancreas: Pancreatic ductal dilatation with punctate parenchymal or ductal calcifications noted. Peripancreatic stranding is noted. Findings are compatible with acute on chronic pancreatitis. Spleen: Normal. No splenomegaly. Adrenals: Normal. No mass. Kidneys and ureters: Normal. No hydronephrosis. Stomach and bowel: Colonic diverticulosis is present without evidence for inflammation. Mild fluidfilled dilatation of distal small bowel measures up to 2.2 cm with a collapsed appearance of the terminal ileum. Findings may reflect an ileus, versus an early/partial small bowel obstruction. Appendix: No evidence of appendicitis. Intraperitoneal space: Unremarkable. No free air. No significant fluid collection. Vasculature: Unremarkable. No abdominal aortic aneurysm. Lymph nodes: Unremarkable. No enlarged lymph nodes. Bladder: Unremarkable as visualized. Reproductive: Uterine myoma measures 2.3 cm on the left Slightly irregular low attenuating left adnexal region focus may reflect ovarian follicular cysts, hydrosalpinx, or an atypical subserosal myoma measuring up to 2.3 cm Bones/joints: Unremarkable. No acute fracture. Soft tissues: Unremarkable. IMPRESSION: 1. Pancreatic ductal dilatation with punctate parenchymal or ductal calcifications noted. Peripancreatic stranding is noted. Findings are compatible with acute on chronic pancreatitis. 2. Mild fluid-filled dilatation of distal small bowel measures up to 2.2 cm with a collapsed appearance of the terminal ileum. Findings may reflect an ileus, versus an early/partial small bowel obstruction. 3. Uterine myoma measures 2.3 cm on the left Slightly irregular low attenuating left adnexal region focus may reflect ovarian follicular cysts, hydrosalpinx, or an atypical subserosal myoma measuring up to 2.3 cm. Elective sonography could be performed as needed for further evaluation Thank you for allowing us to participate in the care of your patient. Dictated and Authenticated by: Raj Borja MD 09/30/2019 12:21 AM Eastern Time ([place] & [place]) HPI <LUCIO Greenwood - Last Filed: 09/30/19 13:54> General Mode of arrival: ambulatory. Date/Time Provider Initiated Documentation: 09/29/19 22:09. Limitations to Documentation: no limitations. Information obtained by: patient. HPI Narrative: 73-year-old female with history of COPD, GERD, hyperlipidemia, hypertension, history of right breast cancer, diverticulosis via colonoscopy roughly 3 years ago. She reports a loose stool this morning and left lower quadrant abdominal discomfort all day long that does fluctuate in intensity. She reports at max the pain has been severe. She denies nausea or vomiting. She denies diarrhea or constipation. She has never had diverticulitis before. Denies fever, chest pain, shortness of breath. Reports the pain does radiate into her left back. Denies bad food exposure or sick contacts. She did travel from [place] over the past 24 hours but no obvious contact with COVID positive patients. Related Data Home Medications Medication Instructions Recorded Confirmed aspirin [Ecotrin Low Strength] 81 mg PO DAILY tab-cap 11/21/12 09/30/19 vitamin B complex [B-Complex] 1 ea PO DAILY 01/28/13 09/30/19 calcium carbonate-vitamin D3 1 ea PO DAILY 02/24/14 09/30/19 [Caltrate with Vitamin D3] hydrochlorothiazide 12.5 mg PO DAILY #90 tab-cap 09/07/15 09/30/19 Centrum Silver Women 1 tab PO DAILY 04/19/18 09/30/19 albuterol sulfate [ProAir HFA] 2 puff INHALATION BID 04/19/18 09/30/19 cholecalciferol (vitamin D3) 1,000 unit PO DAILY 04/19/18 09/30/19 [Vitamin D3] desonide 1 applic TOPICAL DAILY 04/19/18 09/30/19 pravastatin 20 mg PO DAILY 04/19/18 09/30/19 vitamin E 400 unit PO DAILY 04/19/18 09/30/19 magnesium oxide 400 mg PO DAILY 02/13/19 09/30/19 omega 7-ilu-dbl-fish oil 1,000 mg 2 cap PO DAILY cap 02/13/19 09/30/19 (120 mg-180 mg) capsule fluticasone 500 mcg-salmeterol 50 1 inh IH BID #60 each 05/02/19 09/30/19 mcg/dose blistr powdr for inhalation fluticasone propionate 50 2 spray TALIA DAILY PRN 05/02/19 09/30/19 mcg/actuation nasal spray,suspension Previous Rx's Medication Instructions Recorded fluticasone 500 mcg-salmeterol 50 1 inh IH BID #60 each 05/02/19 mcg/dose blistr powdr for inhalation Allergies Allergy/AdvReac Type Severity Reaction Status Date / Time house dust mite Allergy Asthma Verified 02/13/19 11:20 pollen extracts Allergy Asthma Verified 02/13/19 11:20 General Stated Complaint: Abd Prob STEPHANIE: 3 Review of Systems <LUCIO Greenwood - Last Filed: 09/30/19 13:54> Constitutional Constitutional: Denies fatigue, Denies fever(s) and Denies headache(s) ENT Ears, Nose, Mouth, and Throat: Denies headache(s) Cardiovascular Cardiovascular: Denies chest pain and Denies dyspnea Respiratory Respiratory: Denies cough and Denies dyspnea Gastrointestinal Gastrointestinal: Reports abdominal pain, Denies constipation, Denies diarrhea, Denies nausea and Denies vomiting Genitourinary Genitourinary: Denies dysuria Musculoskeletal Musculoskeletal: Reports back pain Integumentary/Breasts Skin/Breast: Denies rash Neurologic Neurologic: Denies headache(s) Endocrine Endocrine: Denies fatigue PFSH <LUCIO Greenwood - Last Filed: 09/30/19 13:54> Medical History Basal cell carcinoma (Resolved) COPD (chronic obstructive pulmonary disease) (Chronic) Diverticulosis of colon (Inactive) Essential hypertension (Chronic) GERD (gastroesophageal reflux disease) (Chronic) Hyperlipidemia (Chronic) Malignant neoplasm of right breast (Inactive 2000) Invasive lobular carcinoma, [place]+, [place]-, s/p chemo, radiation, mastectomy. Osteopenia (Chronic) Dexa 2015 at [facility] [place] Osteoporosis (Resolved) Fosamax x 10 yrs Vitamin D deficiency (Resolved) Surgical History History of esophagogastroduodenoscopy (EGD) (Chronic ~2012) History of modified radical mastectomy of right breast (Acute 02/06/01) History of tonsillectomy (Chronic) S/P colonoscopy (Acute 01/07/14) Family History Mother , age 76 Depression Hypertension Father , age 68 Heart disease Hyperlipidemia Alcohol abuse Hypertension Sister Hyperlipidemia Breast cancer In her 50s Brother Depression Heart disease Hyperlipidemia Stroke Substance abuse Alcohol abuse Hypertension Myocardial infarction Maternal Grandfather Stroke Maternal Grandmother No problems noted. Paternal Grandfather No problems noted. Paternal Grandmother , At 92 Osteoporosis Social History Smoking/Tobacco Use Status: Never Second Hand Exposure: Yes Alcohol Intake: current Alcohol Intake frequency: a few times a month Alcohol type: wine and hard liquor Substance use type: does not use Caregiver/Support person: No Household members: none Housing: house Communication Needs: None Do you need help understanding health information?: Rarely Pets and animals: No Sexually active: No Do you think of yourself as: straight/heterosexual Current gender identity: female What is your relationship status?: How often do you talk on the phone with friends or family?: three or more times per week How often do you get together with friends or relatives?: twice per week How often do you attend pentecostal or jainism services?: 4 or more times per year Do you belong to any clubs or organized social groups?: yes Panel score (0-1 are the most socially isolated patients): 3 What type of physical activity do you participate in: walking and other Details: Wellness @PT Duration: 45-60 minutes/day Frequency: 3-4 times per week Marti/Jainism: Jehovah'S Witness Special marti needs: No Seatbelt use: always Helmet use: Yes Helmet use: sometimes Drive intox or ride w/intox emergency medical technician/driver: No Do you feel safe at home: Yes Do you feel safe in your relationship?: Yes History History 6 Para Hx # Term Pregnancies Multiple births Hx # Pregnancies Ectopic pregnancies AB induced Hx Number of Living Children AB spontaneous 6 Exam <LUCIO Greenwood - Last Filed: 09/30/19 13:54> Const General: cooperative, healthy appearing, comfortable and no acute distress Orientation: alert, awake and oriented x3 HENMT Head: normal to inspection, normocephalic and atraumatic Mouth: moist mucous membranes Eyes Conjunctivae: conjunctivae normal Neck Neck: normal visual inspection, full ROM, no meningeal signs, trachea midline and supple Resp Effort & Inspection: normal respiratory effort and able to speak in complete sentences Auscultation: clear to auscultation bilaterally Cardio Rate: regular rate Rhythm: regular rhythm GI Inspection: normal to inspection Palpation: soft, not firm, no guarding, no masses, not rigid and tender in the LLQ Auscultation: normal bowel sounds Back/Spine/Pelvis Back: No back tenderness Skin General skin exam: no rashes or lesions noted Neuro General: patient alert, patient awake, moves all extremities and no focal motor deficits Cognition: normal cognition Speech: speech normal Motor: muscle tone normal throughout Sensory Exam: no sensory deficits noted Extrem General: normal to inspection, full ROM and capillary refill normal Psych Appearance: grossly normal Mental Status: mental status grossly normal Course <LUCIO Greenwood - Last Filed: 09/30/19 13:54> Vital Signs Vital signs: Vital Signs Temperature 36.6 C 09/29/19 22:23 Pulse 82 09/29/19 22:23 Respiratory Rate 21 09/29/19 22:23 Blood Pressure 174/86 H 09/29/19 22:23 Pulse Oximetry 96 09/29/19 22:23 Temperature 36.6 C 09/29/19 22:23 Temperature Source Temporal Artery Scan 09/29/19 22:23 Pulse 82 09/29/19 22:23 Respiratory Rate 21 09/29/19 22:23 Respiratory Effort 09/29/19 22:26 Blood Pressure 174/86 H 09/29/19 22:23 Blood Pressure Position Supine 09/29/19 22:23 Pulse Oximetry 96 09/29/19 22:23 Oxygen Delivery Method Room Air 09/29/19 22:23 Oxygen Flow Rate 0 09/29/19 22:23 Pain Level 8 09/29/19 22:23 Sign Out <LUCIO Greenwood - Last Filed: 09/30/19 13:54> Sign Out Data: Sign Out Comment: Pending CT results, reevaluation, final disposition Last updated by Jaime Landrum PA at 09/29/19 23:54
[2019-09-29 22:59] VITALS: BP 160/76; PULSE 83; O2SAT 99
[2019-09-29] MEDS: Normal Saline 1,000 ML 125 ML IV (22:59)
[2019-09-29 23:01] VITALS: BP 176/83; PULSE 74; O2SAT 99
[2019-09-29 23:06] LABS: Bilirubin Negative (Negative); Blood Negative (Negative); Clarity Clear (Clear); Glucose Negative (Negative); Ketones 40 mg/dL (Negative); Leukocyte Esterase Small (Negative); Nitrite Negative (Negative); Urobilinogen 0.2 EU/dL (Up TO 0.2); pH 8.5 (5-8)
[2019-09-29 23:08] LABS: Abs Immature Grans 0.02 k/cumm (0.0-0.09); Absolute Eosinophil Count 0.08 k/cumm (0.0-0.7); Absolute Lymphocyte Count 1.87 k/cumm (1.2-3.4); Absolute Monocyte Count 0.97 k/cumm (0.11-0.7); Basophils % 0.3; Eosinophils % 0.7; HCT 42.2 % (36.0-46.0); HGB 14.7 g/dL (12.0-15.5); Immature Grans % 0.2 %; Mean Corp. HGB Concentration 34.8 g/dL (32.0-36.0); Mean Corpuscular Hemoglobin 31.2 pg (27.0-33.0); Mean Corpuscular Volume 89.6 fL (80-95); Mean Platelet Volume 10.2 fL (8.0-11.0); Monocytes % 8.3; Neutrophils % 74.5; Platelet Count 311 x1000/uL (130-400); RBC 4.71 m/cumm (4.00-5.20); RBC Distribution Width 12.7 % (11.7-14.6)
[2019-09-29 23:09] LABS: Absolute Basophil Count 0.04 k/cumm (0.0-0.2); Absolute Neutrophil Count 8.72 k/cumm (1.2-6.7)
[2019-09-29 23:16] VITALS: BP 179/74; PULSE 80; O2SAT 99
[2019-09-29 23:17] LABS: Bacteria Rare HPF (Negative); Epithelial Cells Negative HPF (Negative); Other Cells Negative (Negative); RBC Negative HPF (0-2); WBC 0-2 HPF (0-5)
[2019-09-29 23:18] LABS: C & S Indicated? Yes; Casts Negative LPF (Negative); Crystals Rare Amorphous HPF (Negative); Mucus Negative (Negative)
[2019-09-29 23:19] LABS: ALT 38 U/L (14-59); AST 29 U/L (15-37); Albumin 4.2 g/dL (3.4-5.0); Alkaline Phosphatase 90 U/L (46-116); Anion Gap 8.1 mmol/L (3-11); BUN 11 mg/dL (7-18); Bilirubin, Total 0.8 mg/dL (0.2-1.0); CO2 29.9 mmol/L (21.0-32.0); CREATININE 0.81 mg/dL (0.55-1.02); Calcium 9.9 mg/dL (8.5-10.1); Chloride 96 mmol/L (98-107); Glucose 125 mg/dL (74-106); Lipase 164 U/L (73-393); Potassium 3.4 mmol/L (3.5-5.1); Sodium 134 mmol/L (136-145); Total Protein 7.7 g/dL (6.4-8.2)
[2019-09-29 23:31] VITALS: BP 178/99; PULSE 75; O2SAT 98
[2019-09-29] MEDS: Omnipaque 350 MG/ML 100 ML BTL IJ (23:32)
[2019-09-29] MEDS: HYDROmorphone 2 MG/ML VIAL 0.5 MG IVP (23:40)
[2019-09-30 00:08] VITALS: BP 118/64; PULSE 72; RESP 16; O2SAT 99
[2019-09-30] MEDS: Normal Saline - Diluent 50 ML VIAL IV (00:09)
[2019-09-30] MEDS: Normal Saline Flush 10 ML SYR IVP (00:10)
--- NOTE | 2019-09-30 00:21 | DI.VRAD_ITS ---
PROCEDURE INFORMATION: Exam: CT Abdomen And Pelvis With Contrast Exam date and time: 09/29/2019 11:54 PM Age: 73 years old Clinical indication: Abdominal pain; Localized; Left lower quadrant (llq); Patient HX: Llq pain, loose stool, HX of diverticulosis; Additional info: HX of breast CA in 2000 TECHNIQUE: Imaging protocol: Computed tomography of the abdomen and pelvis with intravenous contrast. Radiation optimization: All CT scans at this facility use at least one of these dose optimization techniques: automated exposure control; mA and/or kV adjustment per patient size (includes targeted exams where dose is matched to clinical indication); or iterative reconstruction. Contrast material: OMNIPAQUE 350; Contrast volume: 80 ml; Contrast route: IV RAC; COMPARISON: CR XR PELVIS AP 02/04/2019 3:30 PM FINDINGS: Liver: Normal. No mass. Gallbladder and bile ducts: Normal. No calcified stones. No ductal dilation. Pancreas: Pancreatic ductal dilatation with punctate parenchymal or ductal calcifications noted. Peripancreatic stranding is noted. Findings are compatible with acute on chronic pancreatitis. Spleen: Normal. No splenomegaly. Adrenals: Normal. No mass. Kidneys and ureters: Normal. No hydronephrosis. Stomach and bowel: Colonic diverticulosis is present without evidence for inflammation. Mild fluid-filled dilatation of distal small bowel measures up to 2.2 cm with a collapsed appearance of the terminal ileum. Findings may reflect an ileus, versus an early/partial small bowel obstruction. Appendix: No evidence of appendicitis. Intraperitoneal space: Unremarkable. No free air. No significant fluid collection. Vasculature: Unremarkable. No abdominal aortic aneurysm. Lymph nodes: Unremarkable. No enlarged lymph nodes. Bladder: Unremarkable as visualized. Reproductive: Uterine myoma measures 2.3 cm on the left Slightly irregular low attenuating left adnexal region focus may reflect ovarian follicular cysts, hydrosalpinx, or an atypical subserosal myoma measuring up to 2.3 cm Bones/joints: Unremarkable. No acute fracture. Soft tissues: Unremarkable. IMPRESSION: 1. Pancreatic ductal dilatation with punctate parenchymal or ductal calcifications noted. Peripancreatic stranding is noted. Findings are compatible with acute on chronic pancreatitis. 2. Mild fluid-filled dilatation of distal small bowel measures up to 2.2 cm with a collapsed appearance of the terminal ileum. Findings may reflect an ileus, versus an early/partial small bowel obstruction. 3. Uterine myoma measures 2.3 cm on the left Slightly irregular low attenuating left adnexal region focus may reflect ovarian follicular cysts, hydrosalpinx, or an atypical subserosal myoma measuring up to 2.3 cm. Elective sonography could be performed as needed for further evaluation Dictated and Authenticated by: Raj Borja MD. Ordering:JAYLEN Sandoval MD
[2019-09-30 00:55] VITALS: BP 122/58; PULSE 59; RESP 16; O2SAT 98
== END 2019-09-30 00:55 | disposition home or self-care (01) ==
PROVIDERS: Physician Assistant; Emergency Provider Student in an Organized Health Care Education/Training Program; PCP Nurse Practitioner Family
DX: K86.1 Other chronic pancreatitis (principal); K56.7 Ileus, unspecified; R93.5 Abnormal findings on diagnostic imaging of other abdominal regions, including retroperitoneum; J44.9 Chronic obstructive pulmonary disease, unspecified; Z77.22 Contact with and (suspected) exposure to environmental tobacco smoke (acute) (chronic); I10 Essential (primary) hypertension; E86.0 Dehydration; D25.9 Leiomyoma of uterus, unspecified
CPT/HCPCS: 36415; 80053; 83690; 96361; 96374; 99285; 74177; 81003; 81015; 85025; 87086; 99284; J3490

== ENCOUNTER 2019-10-01 10:00 | Inpatient (IN) | payer MEDICARE, BC, SELFPAY ==
[2019-10-01] VITALS (11 sets, daily range): BP systolic 148–169; BP diastolic 66–110; PULSE 70–103; RESP 16–20; TEMP 36.3–37.5; O2SAT 78–98
--- NOTE | 2019-10-01 11:00 | DI.US_ITS ---
EXAM: US ABDOMEN LIMITED CLINICAL HISTORY: abdominal pain upper abdomen, r/o GB TECHNIQUE: Ultrasound performed using standard protocol. COMPARISON: CT ABD PELVIS WITH CONTRAST from 03/17/[address] ABDOMEN PELVIS W from 09/29/2019 FINDINGS: The gallbladder appears normal. No wall thickening, stones or pericholecystic fluid is seen. There is no sonographic Burch sign. The common bile duct measures 6 millimeters. No common duct stones are seen. The pancreatic duct is again noted to be markedly dilated, up to 14 millimeters. A cyst i s seen in the tail of the pancreas measuring 2.5 x 1.8 x 1.8 cm. This could represent communication w ith the dilated duct. The pancreatic duct was dilated on the scan in 2010 and appears to have increa sed since that time. A calcification is noted in the tail of the pancreas. No fluid is visible arou nd the pancreas by ultrasound. IMPRESSION: Dilated pancreatic duct. No obstructing mass or stone is visible. Question of a separate cyst in the tail versus continuation of the dilated duct. The biliary tree is nondilated. No gallstones or common duct stones are seen. DATA REPOSITORY:
--- NOTE | 2019-10-01 11:03 | ED.GENADUL_ITS ---
Discharge Plan Disposition Patient Disposition: [facility] INPATIENT Condition: Stable Discharge Details Chief Complaint: Abd Prob Clinical Impression: Abdominal pain Admit Date/Time: 10/02/19 10:32 Admit Provider: Jaime Neff Attending Provider: Jaime Neff Primary Care Provider: Zeny James ED Provider: Talia Canela Discharge Instructions Forms: Nursing Discharge Form Referrals: David Kovacs DO [ [facility] STAFF PHYSICIAN] - 10/11/19 4:00 pm Discharge Data Discharge Date/Time-TO BE ENTERED AT DEPARTURE: 10/01/19 15:48 Medical Decision Making <LUCIO Metzger - Last Filed: 10/03/19 15:01> Is a 74-year-old patient presented to the emergency room for complaints of persistent abdominal pain. Patient is complaining of abdominal pain which remains a 8 out of 10. Patient was seen in the emergency room on Monday ultimately was recommended patient be admitted to the hospital which she declined as she was unable to be admitted due to logistical reasons she had her grandchild with her. Patient was discharged home and ultimately has been trying to maintain bowel rest and hydrate by mouth however patient reports persistent 8 out of 10 pain, no relief in pain. Now has had a single episode of vomiting last night. Patient feeling dehydrated she is having difficulty maintaining hydration by mouth. Has no appetite for food or fluids. Patient reports upper abdominal pain worse on the left radiating toward the right and toward her back. Denies any chest pain difficulty breathing shortness of breath or wheezing. Has no fever or chills. Patient denies any significant bowel changes or changes in urination. Reviewed patient's previous evaluation in the emergency room. PT's previous CT FINDINGS: Liver: Normal. No mass. Gallbladder and bile ducts: Normal. No calcified stones. No ductal dilation. Pancreas: Pancreatic ductal dilatation with punctate parenchymal or ductal calcifications noted. Peripancreatic stranding is noted. Findings are compatible with acute on chronic pancreatitis. Spleen: Normal. No splenomegaly. Adrenals: Normal. No mass. Kidneys and ureters: Normal. No hydronephrosis. Stomach and bowel: Colonic diverticulosis is present without evidence for inflammation. Mild fluid-filled dilatation of distal small bowel measures up to 2.2 cm with a collapsed appearance of the terminal ileum. Findings may reflect an ileus, versus an early/partial small bowel obstruction. Appendix: No evidence of appendicitis. Intraperitoneal space: Unremarkable. No free air. No significant fluid collection. Vasculature: Unremarkable. No abdominal aortic aneurysm. Lymph nodes: Unremarkable. No enlarged lymph nodes. Bladder: Unremarkable as visualized. Reproductive: Uterine myoma measures 2.3 cm on the left Slightly irregular low attenuating left adnexal region focus may reflect ovarian follicular cysts, hydrosalpinx, or an atypical subserosal myoma measuring up to 2.3 cm Bones/joints: Unremarkable. No acute fracture. Soft tissues: Unremarkable. IMPRESSION: 1. Pancreatic ductal dilatation with punctate parenchymal or ductal calcifications noted. Peripancreatic stranding is noted. Findings are compatible with acute on chronic pancreatitis. 2. Mild fluid-filled dilatation of distal small bowel measures up to 2.2 cm with a collapsed appearance of the terminal ileum. Findings may reflect an ileus, versus an early/partial small bowel obstruction. 3. Uterine myoma measures 2.3 cm on the left Slightly irregular low attenuating left adnexal region focus may reflect ovarian follicular cysts, hydrosalpinx, or an atypical subserosal myoma measuring up to 2.3 cm. Elective sonography could be performed as needed for further evaluation We will plan to rehydrate IV as well as provide pain management via morphine with addition of Zofran. Patient agrees with this plan of care. Will recheck baseline labs including lipase. We will plan to obtain CT of right upper quadrant for concern of gallstones. Will obtain urinalysis. Patient's labs reveal no significant leukocytosis at this time, LFT changes or increase in bilirubin or lipase. Verbal report per oil refinery process technician reveals persistent ductal dilation measured at 14 mm with question of a cyst. Gallbladder appeared normal per verbal report again this is to be reviewed by radiology. Spoke with hospitalist regarding patient's presentation and need for admission to the hospital. Dr. Parker will admit the patient to [facility] but does request MRCP is ordered to try to expedite patient's imaging as well as consultation to surgery. MRCP ordered. Page to surgery. spoke with Dr. Foley of surgery and requested consultation. Reevaluation of the patient reveals patient's pain has improved to a 2 or 3 out of 10 after morphine. She does feel significantly more comfortable than her initial presentation. <Willem Rodriguez MD - Last Filed: 10/01/19 13:17> Patient seen, examined, and discussed with LUCIO Hoang. Patient has tenderness left abdomen clear with mid abdomen. Abdominal exam is nonrigid, no rebound tenderness. She has no rash on her abdomen. Heart regular rate and rhythm and lungs clear to auscultation bilaterally. Labs reviewed and nondiagnostic. Normal lipase and LFTs. Urinalysis pending. Official ultrasound report from today pending. final operations technician noted dilated pancreatic duct as noted on CT. No stones. I did review CT result from 09/29/2019: Mild quality of stool seen in the cecum and ascending colon. Consider constipation. Patient does note that she had a small loose bowel movement prior to that CT on Monday but has not had bowel movement since. Plan will be for admission for ongoing pain control, IV fluids with bowel rest and likely additional diagnostic testing. LUCIO Hoang spoke with Dr. Parker who will admit the patient and did request MRCP. MRCP will likely be performed tomorrow as patient had opioid for pain control today. I agree with treatment plan as discussed/documented. HPI <LUCIO Metzger - Last Filed: 10/03/19 15:01> General Date/Time Provider Initiated Documentation: 10/01/19 10:26 . HPI Narrative: Is a 73-year-old patient presenting to the emergency room for continued abdominal pain. Patient reports onset of abdominal pain 2 days ago. Patient reports upper abdominal pain worse on the left which does radiate toward the right in the upper abdomen. Patient reports a single episode of vomiting overnight. Reports bilious and clear vomitus. Patient reports abdominal pain 8 out of 10 persists has been constant. Patient reports decrease in appetite. Patient re ports she is feeling dehydrated she has been trying to take sips of fluids. Patient denies dysuria, urgency or frequency of urination. Patient reports mild decrease in bowel movements. Patient denies obvious abdominal bloating. Patient does report some radiation of abdominal pain toward the back on the right. Patient denies any fever, chills. Patient denies headache or dizziness. Patient denies any rash. Denies any chest pain, difficulty breathing or shortness of breath or wheezing. No increase in respiratory effort. Denies any lightheaded sensation. Patient was offered admission to the hospital due to her complaints of pain and CT findings when evaluated on Monday in the emergency room however she was caring for her grandchild at the time and was unable to be admitted due to logistical reasons. Patient is now returning requesting admission to the hospital due to persistence of her symptoms. Related Data Home Medications Medication Instructions Recorded Confirmed aspirin [Ecotrin Low Strength] 81 mg PO DAILY tab-cap 11/21/12 10/01/19 vitamin B complex [B-Complex] 1 ea PO DAILY 01/28/13 10/01/19 calcium carbonate-vitamin D3 1 ea PO DAILY 02/24/14 10/01/19 [Caltrate with Vitamin D3] Centrum Silver Women 1 tab PO DAILY 04/19/18 10/01/19 albuterol sulfate [ProAir HFA] 2 puff INHALATION BID 04/19/18 10/01/19 cholecalciferol (vitamin D3) 1,000 unit PO DAILY 04/19/18 10/01/19 [Vitamin D3] pravastatin 20 mg PO DAILY 04/19/18 10/01/19 vitamin E 400 unit PO DAILY 04/19/18 10/01/19 magnesium oxide 400 mg PO DAILY 02/13/19 10/01/19 omega 2-mmp-gir-fish oil 1,000 mg 1 cap PO DAILY cap 02/13/19 10/01/19 (120 mg-180 mg) capsule fluticasone 500 mcg-salmeterol 50 1 inh IH BID #60 each 05/02/19 10/01/19 mcg/dose blistr powdr for inhalation fluticasone propionate 50 2 spray TALIA DAILY PRN 05/02/19 10/01/19 mcg/actuation nasal spray,suspension Previous Rx's Medication Instructions Recorded fluticasone 500 mcg-salmeterol 50 1 inh IH BID #60 each 05/02/19 mcg/dose blistr powdr for inhalation Allergies Allergy/AdvReac Type Severity Reaction Status Date / Time house dust mite Allergy Asthma Verified 02/13/19 11:20 pollen extracts Allergy Asthma Verified 02/13/19 11:20 General Stated Complaint: Abd Prob STEPHANIE: 3 Review of Systems <LUCIO Metzger - Last Filed: 10/03/19 15:01> All systems reviewed & are unremarkable except as noted in HPI and below PFSH <LUCIO Metzger - Last Filed: 10/03/19 15:01> Medical History (Updated 10/01/19 @ 23:23 by Jaime Neff) Basal cell carcinoma (Resolved) COPD (chronic obstructive pulmonary disease) (Chronic) Diverticulosis of colon (Inactive) Essential hypertension (Chronic) GERD (gastroesophageal reflux disease) (Chronic) Hyperlipidemia (Chronic) Malignant neoplasm of right breast (Inactive 2000) Invasive lobular carcinoma, ER+, [place]-, s/p chemo, radiation, mastectomy. Osteopenia (Chronic) Dexa 2014 at [facility] [place] Osteoporosis (Resolved) Fosamax x 10 yrs Pancreatic duct dilated (Acute) Vitamin D deficiency (Resolved) Surgical History History of esophagogastroduodenoscopy (EGD) (Chronic ~2012) History of modified radical mastectomy of right breast (Acute 02/06/01) History of tonsillectomy (Chronic) S/P colonoscopy (Acute 01/07/14) Family History Mother , age 76 Depression Hypertension Father , age 68 Heart disease Hyperlipidemia Alcohol abuse Hypertension Sister Hyperlipidemia Breast cancer In her 50s Brother Depression Heart disease Hyperlipidemia Stroke Substance abuse Alcohol abuse Hypertension Myocardial infarction Maternal Grandfather Stroke Maternal Grandmother No problems noted. Paternal Grandfather No problems noted. Paternal Grandmother , At 92 Osteoporosis Social History (Updated 10/01/19 @ 23:16 by Jaime Neff) Smoking/Tobacco Use Status: Never Second Hand Exposure: Yes Alcohol Intake: current Alcohol Intake frequency: a few times a month Alcohol type: wine Substance use type: does not use Caregiver/Support person: No Household members: none Housing: house Communication Needs: None Do you need help understanding health information?: Rarely Pets and animals: No Sexually active: No Do you think of yourself as: straight/heterosexual Current gender identity: female What is your relationship status?: How often do you talk on the phone with friends or family?: three or more times per week How often do you get together with friends or relatives?: twice per week How often do you attend hoahaoism or gnosticism services?: 4 or more times per year Do you belong to any clubs or organized social groups?: yes Panel score (0-1 are the most socially isolated patients): 3 What type of physical activity do you participate in: walking and other Details: Wellness @PT Duration: 45-60 minutes/day Frequency: 3-4 times per week Marti/Baptist: [employer]ist Special marti needs: No Seatbelt use: always Helmet use: Yes Helmet use: sometimes Drive intox or ride w/intox armor reconnaissance vehicle driver: No Do you feel safe at home: Yes Do you feel safe in your relationship?: Yes History History 6 Para Hx # Term Pregnancies Multiple births Hx # Pregnancies Ectopic pregnancies AB induced Hx Number of Living Children AB spontaneous 6 Exam <LUCIO Metzger - Last Filed: 10/03/19 15:01> Narrative Exam Narrative: CONST: Uncomfortable appearing patient in no acute distress. Alert and oriented. HENMT: Head nomocephalic, normal to inspection. Atraumatic. Hearing grossly normal. Dentition normal. Normal posterior oropharynx. Uvula midline. EYES: General normal appearance. Alignment normal. Eyelids normal. Conjunctiva normal. Sclera normal. NECK: Normal visual inspection. FROM. No lymphadenopathy. Trachea midline. No Midline tenderness. CHEST: Normal insepection of the chest. RESP: Normal respiratory effort. Speaking full sentences. No cough. No wheezing. No retractions. Clear to auscaltation. Breath sound equal and present bilaterally. CARDIO: No JVD. Normal PMI. Regular Rate. Regular Rhythm. Normal peripheral pulses. GI: Normal inspection of abdomen. No distension. Soft. Left upper quadrant tenderness noted with palpation, mild epigastric pain with palpation, mild periumbilical pain with palpation. Mild right upper quadrant pain with palp ation. No significant lower abdominal tenderness elicited with palpation. Bowel sounds present in all 4 quadrants. No rebound. No gaurding. MUSCULOSKELETAL: Normal Gait. FROM of all extremities. Distal neurovascularly intact. Sensation intact distally. No lower extremity edema present. SKIN: Normal. Dry. No rashes. NEURO: Alert and awake. Speech clear. PSYCH: Normal affect. Cooperative. Course <LUCIO Metzger - Last Filed: 10/03/19 15:01> Vital Signs Vital signs: Vital Signs Temperature 36.8 C 10/01/19 10:04 Pulse 103 H 10/01/19 10:04 Respiratory Rate 18 10/01/19 10:04 Blood Pressure 148/110 H 10/01/19 10:04 Pulse Oximetry 98 10/01/19 10:04 Temperature 36.8 C 10/01/19 10:04 Temperature Source Skin 10/01/19 10:04 Pulse 103 H 10/01/19 10:04 Respiratory Rate 18 10/01/19 10:04 Blood Pressure 148/110 H 10/01/19 10:04 Blood Pressure Position Sitting 10/01/19 10:04 Pulse Oximetry 98 10/01/19 10:04 Oxygen Delivery Method Room Air 10/01/19 10:04 Oxygen Flow Rate 0 10/01/19 10:04 Pain Level 8 10/01/19 10:04
[2019-10-01] MEDS: Normal Saline 1,000 ML 500 ML IV (11:21)
[2019-10-01] MEDS: Ondansetron 4 MG/2 ML VIAL IVP (11:23)
[2019-10-01 11:53] LABS: ALT 32 U/L (14-59); AST 24 U/L (15-37); Albumin 3.9 g/dL (3.4-5.0); Alkaline Phosphatase 80 U/L (46-116); Anion Gap 10.5 mmol/L (3-11); BUN 12 mg/dL (7-18); Bilirubin, Total 0.9 mg/dL (0.2-1.0); CO2 26.5 mmol/L (21.0-32.0); Calcium 8.9 mg/dL (8.5-10.1); Chloride 97 mmol/L (98-107); Glucose 102 mg/dL (74-106); Lipase 88 U/L (73-393); Potassium 3.4 mmol/L (3.5-5.1); Sodium 134 mmol/L (136-145); Total Protein 7.5 g/dL (6.4-8.2)
[2019-10-01 11:59] LABS: Abs Immature Grans 0.02 k/cumm (0.0-0.09); Absolute Basophil Count 0.02 k/cumm (0.0-0.2); Absolute Eosinophil Count 0.05 k/cumm (0.0-0.7); Absolute Lymphocyte Count 1.48 k/cumm (1.2-3.4); Absolute Neutrophil Count 6.44 k/cumm (1.2-6.7); Basophils % 0.2; Eosinophils % 0.6; HCT 41.1 % (36.0-46.0); HGB 14.2 g/dL (12.0-15.5); Immature Grans % 0.2 %; Lymphocytes % 16.4; Mean Corp. HGB Concentration 34.5 g/dL (32.0-36.0); Mean Corpuscular Volume 89.7 fL (80-95); Mean Platelet Volume 10.7 fL (8.0-11.0); Monocytes % 11.1; Neutrophils % 71.5; Platelet Count 293 x1000/uL (130-400); RBC 4.58 m/cumm (4.00-5.20); RBC Distribution Width 12.6 % (11.7-14.6); White Blood Cell Count 9.01 k/cumm (4.4-10.8)
--- NOTE | 2019-10-01 12:15 | DI.MRI_ITS ---
EXAM: MR ABDOMEN WO insulin CLINICAL HISTORY: LUQ pain, pancreatic duct dilation TECHNIQUE: Multiplanar multisequence MRA of the Abdomen was performed. COMPARISON: CT CT ABDOMEN PELVIS W from 09/29/2019 US US ABDOMEN LIMITED from 10/01/2019 FINDINGS: Exam is limited by patient motion. There is a small amount of fluid around the tail of the pancreas. The pancreatic parenchyma is again noted to be atrophic. The pancreatic duct is dilated up to 14 millimeters and shows multiple small outpouchings. No definite separate cyst is identified. No renee d mass is visible. The intrahepatic bile ducts as well as common bile duct are not dilated. No gall stones are seen. IMPRESSION: Marked dilatation of the pancreatic duct. No visible obstructing mass. Small amount of fluid around the tail of the pancreas could indicate pancreatitis. The exam is limited due to patient motion. DATA REPOSITORY:
--- NOTE | 2019-10-01 15:44 | W.SURGCON ---
Date of service: 10/01/19 Time of Service: 15:45 Assessment and Plan Assessment and plan (1) Pancreatitis: Status: Chronic Assessment and plan: A\\ 74 year old with acute onset of abdominal pain in the yasmine-umbilical area and LUQ. CT scan, US and MRI all show dilated pancreatic duct. No stones, masses noted. There was inflammation and fluid noted around the tail of the pancreas. No history of alcohol abuse, last set of lipids where not too high. P\\ Continue with clear liquids and pain medication If no improvement would call GI and have them look at all the studies and see if they can come up with something else or whether they recommend an ERCP. I will check on patient tomorrow Qualifiers: Chronicity: acute Pancreatitis type: unspecified pancreatitis type Acute pancreatitis complication: no infection or necrosis Qualified Code(s): K85.90 - Acute pancreatitis without necrosis or infection, unspecified History of Present Illness History of Present Illness Chief Complaint: abdominal pain Narrative: Mrs. Serrano is a pleasant 74 year old female admitted to the hospital with diagnoses of pancreatitis. She tells me that she had acute onset of left upper quadrant abdominal pain on monday. she came to the ED where workup including CT scan revealed inflammation and fluid around the tail of the pancreas as well as a dilated pancreatic duct. Recommendation was made for patient to stay in the hospital but she was taking care of her 5 year old granddaughter so she did not stay. She went home and returned today due to continued pain. Her pain is left sided from umbilicus to left flank. It is a 8/10. She denies any other symptoms like N/V, unintentional weight loss, changes in bowel habits or history of pancreatitis. She does tell me that she was diagnosed with hyperlipidemia a few years ago and was started on medication. Last Lipid check was on 11/2018- Chol was 247, Trig was 123. She is not a drinker and never has been There is no family history of pancreatic cancer that she is aware of. EXAM: CT ABDOMEN PELVIS W FINDINGS: ABDOMEN: Lung Bases: Normal where visualized. Liver: Normal density. No measurable mass. Gallbladder and biliary tract: No radiodense calculus or dilation. Pancreas: The pancreas is again noted to be atrophic. The pancreatic duct is dilated. There are few punctate pancreatic calcifications. There is some fluid around the tail of the pancreas. The findings could represent acute on chronic pancreatitis. Spleen: Normal. Kidneys: Normal size, contour and axis. No radiodense stones or obstructive uropathy. No masses seen. Adrenal glands: No masses seen. Abdominal Aorta: Abdominal portion non-dilated. PELVIS: Bladder: Symmetric distention, no gross wall thickening. Bowel: There is large quantity of stool seen in the cecum and ascending colon. Diverticulosis is noted of the descending and sigmoid colon. There is no evidence of diverticulitis. There is mild nonspecific dilatation of a few loops of small bowel low in the pelvis. No specific findings to suggest a obstruction. Bones: Scoliosis and degenerative changes. Mild T10 compression fracture, unchanged from MRI from 2012. Old right pubic ramus fracture. Reproductive organs: Uterine fibroids, unchanged. Lymph nodes: Unremarkable. Impression: Fluid around the tail of the pancreas may indicate acute pancreatitis. There is chronic dilatation of the pancreatic duct. US done today- showed a normal Gallbladder, no stones and npo wall thickening. CBD was normal diameter. Again noted was a pancreatic duct dilatation MRI was done which showed no masses or stones. Again noted was a dilated pancreatic duct. Consults Consult date: 10/01/19 Requesting physician: Jaime Neff Review of Systems Constitutional Constitutional: Denies anorexia, Denies fever(s), Denies headache(s) and Reports poor appetite Eyes Eyes: Denies change in vision ENT Ears, Nose, Mouth, and Throat: Denies dysphagia, Denies headache(s) and Denies hoarseness Cardiovascular Cardiovascular: Denies chest pain, Denies chest pain at rest, Denies rapid heart rate, Denies irregular heart rhythm, Denies palpitations, Denies dyspnea and Denies dyspnea on exertion Respiratory Respiratory: Denies cough, Denies dyspnea, Denies dyspnea on exertion and Denies wheezing Gastrointestinal Gastrointestinal: Reports as per HPI, Denies melena, Denies dysphagia and Denies excessive flatus Genitourinary Genitourinary: Denies hematuria, Denies difficulty voiding and Denies urinary incontinence Musculoskeletal Musculoskeletal: Denies back pain and Denies muscle weakness Integumentary/Breasts Skin/Breast: Reports system reviewed and no additional complaints, except as documented Neurologic Neurologic: Denies headache(s) and Denies restless legs Psychiatric Psychiatric: Denies anxiety and Denies depression Endocrine Endocrine: Denies cold intolerance, Denies heat intolerance and Denies palpitations Hematologic/Lymphatic Hematologic/Lymphatic: Denies easy bleeding and Denies easy bruising Allergic/Immunologic Allergic/Immunologic: Denies wheezing [facility] Medical History Basal cell carcinoma (Resolved) COPD (chronic obstructive pulmonary disease) (Chronic) Diverticulosis of colon (Inactive) Essential hypertension (Chronic) GERD (gastroesophageal reflux disease) (Chronic) Hyperlipidemia (Chronic) Malignant neoplasm of right breast (Inactive 2000) Invasive lobular carcinoma, ER+, [place] s/p chemo, radiation, mastectomy. [place]openia (Chronic[place] [facility] [place]oporosis (Resolved) Fosamax x 10 yrs Vitamin D deficiency (Resolved) Surgical History History of esophagogastroduodenoscopy (EGD) (Chronic ~2012) History of modified radical mastectomy of right breast (Acute 02/06/01) History of tonsillectomy (Chronic) S/P colonoscopy (Acute 01/07/14) Family History Mother , age 76 Depression Hypertension Father , age 68 Heart disease Hyperlipidemia Alcohol abuse Hypertension Sister Hyperlipidemia Breast cancer In her 50s Brother Depression Heart disease Hyperlipidemia Stroke Substance abuse Alcohol abuse Hypertension Myocardial infarction Maternal Grandfather Stroke Maternal Grandmother No problems noted. Paternal Grandfather No problems noted. Paternal Grandmother , At 92 Osteoporosis Social History Smoking/Tobacco Use Status: Never Second Hand Exposure: Yes Alcohol Intake: current Alcohol Intake frequency: a few times a month Alcohol type: wine and hard liquor Substance use type: does not use Caregiver/Support person: No Household members: none Housing: house Communication Needs: None Do you need help understanding health information?: Rarely Pets and animals: No Sexually active: No Do you think of yourself as: straight/heterosexual Current gender identity: female What is your relationship status?: How often do you talk on the phone with friends or family?: three or more times per week How often do you get together with friends or relatives?: twice per week How often do you attend druze or denominational services?: 4 or more times per year Do you belong to any clubs or organized social groups?: yes Panel score (0-1 are the most socially isolated patients): 3 What type of physical activity do you participate in: walking and other Details: Wellness @PT Duration: 45-60 minutes/day Frequency: 3-4 times per week Marti/Synagogue: Church Special marti needs: No Seatbelt use: always Helmet use: Yes Helmet use: sometimes Drive intox or ride w/intox rolloff driver: No Do you feel safe at home: Yes Do you feel safe in your relationship?: Yes History History 6 Para Hx # Term Pregnancies Multiple births Hx # Pregnancies Ectopic pregnancies AB induced Hx Number of Living Children AB spontaneous 6 Exam Const General: cooperative, comfortable and no acute distress Orientation: alert and oriented x3 HENMT Head: normocephalic and atraumatic Eyes Pupils: PERRL Chest Chest: normal palpation of entire chest wall Breast inspection: normal inspection of the axillae and Other (s/p right mastectomy for breast cancer) Resp Effort & Inspection: normal respiratory effort Auscultation: clear to auscultation bilaterally Cardio Rate: regular rate Rhythm: regular rhythm Heart Sounds: no gallops, no murmurs and no rubs GI Palpation: soft, hepatosplenomegaly present and tender in the LUQ (no guarding or rebound) and periumbilically Auscultation: normal bowel sounds General: deferred Results Last Vital Signs Temp 99.5 F 10/01/19 14:59 Pulse 74 10/01/19 14:59 Resp 18 10/01/19 14:59 BP 155/76 H 10/01/19 14:59 Pulse Ox 98 10/01/19 14:59 Labs Result diagrams: 10/01/19 11:10 10/01/19 11:10 Labs: Laboratory Results - last 24 hr 10/01/19 10/01/19 11:10 11:10 WBC 9.01 RBC 4.58 Hgb 14.2 Hct 41.1 MCV 89.7 MCH 31.0 MCHC 34.5 RDW 12.6 Plt Count 293 MPV 10.7 Immature Gran % 0.2 Neutrophils % 71.5 Lymphocytes % 16.4 Monocytes % 11.1 Eosinophils % 0.6 Basophils % 0.2 Absolute Neutrophils 6.44 Absolute Lymphocytes 1.48 Absolute Monocytes 1.00 H Absolute Eosinophils 0.05 Absolute Basophils 0.02 Sodium 134 L Potassium 3.4 L Chloride 97 L Carbon Dioxide 26.5 Anion Gap 10.5 BUN 12 Creatinine 0.80 Estimated GFR/1.73 m2 >= 60.00 Glucose 102 Calcium 8.9 Total Bilirubin 0.9 AST 24 ALT 32 Alkaline Phosphatase 80 Total Protein 7.5 Albumin 3.9 Lipase 88
--- NOTE | 2019-10-01 15:50 | HPE_ITS ---
Date of service: 10/01/19 Time of Service: 15:50 Assessment and Plan Assessment and plan (1) Abdominal pain: Status: Acute Assessment and plan: Unclear etiology particularly given the negative CT scan and MRCP and abdominal ultrasound. Her LFTs and lipase are within normal limits therefore make it unlikely that this is secondary to acute biliary disease or alcohol. Previous studies have shown chronic dilatation of her pancreatic duct and although her MRCP is negative she may need to be evaluated by gastroenterology with an endoscopic ultrasound and ERCP. I will have radiology transfer her files to [facility] and discuss her case in the morning with gastroenterology. For now we will continue empiric treatment with antiemetics narcotic analgesics IV fluids and make her n.p.o. Qualifiers: Abdominal location: left upper quadrant Qualified Code(s): R10.12 - Left upper quadrant pain (2) Pancreatic duct dilated: Status: Acute Assessment and plan: As above (3) Pancreatitis: Status: Suspected Assessment and plan: Initial CT scan of her abdomen pelvis done 09/28 suggested pancreatic stranding and peripancreatic fluid around the tail the pancreas. However her abdominal ultrasound today did not demonstrate any peripancreatic fluid. MRCP is been negative and her lipase is negative. Therefore the diagnosis of acute pancreatitis is in question. We will send her films down to [facility] and have GI review in the morning. She may need an ERCP and endoscopic ultrasound for further clarification. Qualifiers: Chronicity: acute Pancreatitis type: unspecified pancreatitis type Acute pancreatitis complication: no infection or necrosis Qualified Code(s): K85.90 - Acute pancreatitis without necrosis or infection, unspecified History of Present Illness History of Present Illness Chief Complaint: Abdominal pain Narrative: 74-year-old female with history of asthma, hyperlipidemia, remote history of breast cancer status post right mastectomy with radiation and chemotherapy 18 years ago presented emergency department 2 days ago with nausea and left-sided upper quadrant abdominal pain with radiation to her back along with loss of appetite but no vomiting. She was evaluated in the emergency department and diagnosed with pancreatitis despite having a normal lipase. CT of the abdomen pelvis at that time showed fluid around the tail the pancreas along with chronic dilatation of pancreatic duct. This was compared to a prior CT scan of the abdomen pelvis from March 17, 2011. Labs at that showed mild leukocytosis 11,700 with no anemia. Chemistry profile that time showed a mild hypokalemia 3.4 normal renal function normal LFTs with no hyperbilirubinemia. And a normal lipase of 164. She was recommend that she be admitted to the hospital at that time however the patient had just picked up her 5-year-old grandchild from [place] the day before and did not want to leave her grandchild with strangers. Since that time the grandchild's parents have come up from [place] and picked the child up. Patient re-presented to the Er today with ongoing LUQ pain w/ radiation into her back and across the RUQ. Repeat labs done in the ER were unremarkable, specifically her lipase and LFT's and CBC were normal. CT of her abdomen and pelvis were not repeated however she underwent US of her abdomen which demonstrated dilated pancreatic duct w/out mass or stones but suggested possible cyst in the tail of the pancreas. She had no sonographic Burch sign. US demonstrated come calcifications in the tail of the pancreas. There was no peripancreatic fluid. Prior studies in 2010 also demonstrated pancreatic ductal dilatation. She underwent MRCP which showed no pancreatic or biliary mass nor stones. The patient was medicated w/ morphine and zofran and is relatively comforatable but with some slight increase in her pain since she was medicated in the ER. Dr. Foley, general surgeon, has been consulted and she is unclear as to the etiology of the patient's pain. The patient has not had a BM since Monday but this is not unusual for the patient and she reasons that she has had nothing to eat since Monday and did not expect to need to have a BM. Review of Systems All systems reviewed & are unremarkable except as noted in HPI and below [facility] Medical History Basal cell carcinoma (Resolved) COPD (chronic obstructive pulmonary disease) (Chronic) Diverticulosis of colon (Inactive) Essential hypertension (Chronic) GERD (gastroesophageal reflux disease) (Chronic) Hyperlipidemia (Chronic) Malignant neoplasm of right breast (Inactive 2000) Invasive lobular carcinoma, [place]+, [place]-, s/p chemo, radiation, mastectomy. Osteopenia (Chronic) Dexa 2014 at [facility] Osteoporosis (Resolved) Fosamax x 10 yrs Vitamin D deficiency (Resolved) Surgical History History of esophagogastroduodenoscopy (EGD) (Chronic ~2012) History of modified radical mastectomy of right breast (Acute 02/06/01) History of tonsillectomy (Chronic) S/P colonoscopy (Acute 01/07/14) Family History Mother , age 76 Depression Hypertension Father , age 68 Heart disease Hyperlipidemia Alcohol abuse Hypertension Sister Hyperlipidemia Breast cancer In her 50s Brother Depression Heart disease Hyperlipidemia Stroke Substance abuse Alcohol abuse Hypertension Myocardial infarction Maternal Grandfather Stroke Maternal Grandmother No problems noted. Paternal Grandfather No problems noted. Paternal Grandmother , At 92 Osteoporosis Social History (Updated 10/01/19 @ 23:16 by Jaime Neff) Smoking/Tobacco Use Status: Never Second Hand Exposure: Yes Alcohol Intake: current Alcohol Intake frequency: a few times a month Alcohol type: wine Substance use type: does not use Caregiver/Support person: No Household members: none Housing: house Communication Needs: None Do you need help understanding health information?: Rarely Pets and animals: No Sexually active: No Do you think of yourself as: straight/heterosexual Current gender identity: female What is your relationship status?: How often do you talk on the phone with friends or family?: three or more times per week How often do you get together with friends or relatives?: twice per week How often do you attend yarsanism or zoroastrian services?: 4 or more times per year Do you belong to any clubs or organized social groups?: yes Panel score (0-1 are the most socially isolated patients): 3 What type of physical activity do you participate in: walking and other Details: Wellness @PT Duration: 45-60 minutes/day Frequency: 3-4 times per week Marti/Gnosticist: [employer] marti needs: No Seatbelt use: always Helmet use: Yes Helmet use: sometimes Drive intox or ride w/intox class c driver: No Do you feel safe at home: Yes Do you feel safe in your relationship?: Yes History History 6 Para Hx # Term Pregnancies Multiple births Hx # Pregnancies Ectopic pregnancies AB induced Hx Number of Living Children AB spontaneous 6 Meds Home Medications and Allergies Home Medications Medication Instructions Recorded Confirmed Type aspirin [Ecotrin Low Strength] 81 mg PO DAILY tab-cap 11/21/12 10/01/19 History vitamin B complex [B-Complex] 1 ea PO DAILY 01/28/13 10/01/19 History calcium carbonate-vitamin D3 1 ea PO DAILY 02/24/14 10/01/19 History [Caltrate with Vitamin D3] Centrum Silver Women 1 tab PO DAILY 04/19/18 10/01/19 History albuterol sulfate [ProAir HFA] 2 puff INHALATION BID 04/19/18 10/01/19 History cholecalciferol (vitamin D3) 1,000 unit PO DAILY 04/19/18 10/01/19 History [Vitamin D3] pravastatin 20 mg PO DAILY 04/19/18 10/01/19 History vitamin E 400 unit PO DAILY 04/19/18 10/01/19 History magnesium oxide 400 mg PO DAILY 02/13/19 10/01/19 History omega 7-dtb-kxm-fish oil 1,000 mg 1 cap PO DAILY cap 02/13/19 10/01/19 History (120 mg-180 mg) capsule fluticasone 500 mcg-salmeterol 50 1 inh IH BID #60 each 05/02/19 10/01/19 Rx mcg/dose blistr powdr for inhalation fluticasone propionate 50 2 spray TALIA DAILY PRN 05/02/19 10/01/19 History mcg/actuation nasal spray,suspension Allergies Allergy/AdvReac Type Severity Reaction Status Date / Time house dust mite Allergy Asthma Verified 02/13/19 11:20 pollen extracts Allergy Asthma Verified 02/13/19 11:20 Exam Narrative Exam Narrative: Elderly female lying up in the bed in semi-way position. Alert and oriented person place time and circumstance. In mild distress secondary to her abdominal pain. HEENT is unremarkable. Specifically mucous membranes are moist without exudate. Neck is supple nontender no JVD normal carotid pulses no bruits Lungs are clear to auscultation. Heart regular rate and rhythm. No murmur rub or gallop. Abdomen with active bowel sounds soft with some mild tenderness in the left upper quadrant and epigastrium without rebound tenderness and no involuntary guarding. No palpable masses no bruits. Lower extremities without peripheral cyanosis or edema. Neurologic exam is grossly intact no focal motor or sensory deficits appreciated no cranial nerve abnormalities appreciated. Genitalia and rectal exam deferred. Chest wall is examined she status post right mastectomy. No palpable masses over the right chest wall. No palpable masses over the left breast. No left axillary adenopathy. No palpable lymph nodes in the right axilla. Results Labs Result diagrams: 10/01/19 11:10 10/01/19 11:10 Labs: Laboratory Results - last 24 hr 10/01/19 10/01/19 11:10 11:10 WBC 9.01 RBC 4.58 Hgb 14.2 Hct 41.1 MCV 89.7 MCH 31.0 MCHC 34.5 RDW 12.6 Plt Count 293 MPV 10.7 Immature Gran % 0.2 Neutrophils % 71.5 Lymphocytes % 16.4 Monocytes % 11.1 Eosinophils % 0.6 Basophils % 0.2 Absolute Neutrophils 6.44 Absolute Lymphocytes 1.48 Absolute Monocytes 1.00 H Absolute Eosinophils 0.05 Absolute Basophils 0.02 Sodium 134 L Potassium 3.4 L Chloride 97 L Carbon Dioxide 26.5 Anion Gap 10.5 BUN 12 Creatinine 0.80 Estimated GFR/1.73 m2 >= 60.00 Glucose 102 Calcium 8.9 Total Bilirubin 0.9 AST 24 ALT 32 Alkaline Phosphatase 80 Total Protein 7.5 Albumin 3.9 Lipase 88 Last Vital Signs Temp 37.5 C 10/01/19 14:59 Pulse 74 10/01/19 14:59 Resp 18 10/01/19 14:59 BP 155/76 H 10/01/19 14:59 Pulse Ox 98 10/01/19 14:59 COVID-19 Screening In the past 14 days, have you traveled outside of [place] or [place]?: YES Had IN PERSON contact w/suspected or confirmed C-19 person: Yes
[2019-10-01] MEDS: Enoxaparin 40 MG/0.4 ML SYR SC (16:36)
[2019-10-01] MEDS: POTASSIUM CHLORIDE/0.9% NACL 1,000 ML 100 MEQ IV (16:36)
[2019-10-01] MEDS: Normal Saline Flush 10 ML SYR IVP (17:02)
[2019-10-01] MEDS: HYDROmorphone 2 MG/ML VIAL IVP (18:09)
[2019-10-01] MEDS: Pravastatin 20 MG TAB PO (20:17)
[2019-10-01 20:48] LABS: COVID-19 RT-PCR UVMMC Result Negative (Negative)
[2019-10-01] MEDS: POTASSIUM CHLORIDE/0.9% NACL 1,000 ML 150 MEQ IV (22:43)
[2019-10-02] MEDS: HYDROmorphone 2 MG/ML VIAL IVP ×3 (01:52→18:52)
[2019-10-02 05:05] VITALS: BP 140/72; PULSE 79; RESP 18; TEMP 36.3; O2SAT 95
[2019-10-02] MEDS: POTASSIUM CHLORIDE/0.9% NACL 1,000 ML 150 MEQ IV ×3 (05:05→20:56)
[2019-10-02 07:48] LABS: Abs Immature Grans 0.02 k/cumm (0.0-0.09); Absolute Basophil Count 0.02 k/cumm (0.0-0.2); Absolute Eosinophil Count 0.08 k/cumm (0.0-0.7); Absolute Lymphocyte Count 1.07 k/cumm (1.2-3.4); Absolute Monocyte Count 0.79 k/cumm (0.11-0.7); Basophils % 0.3; HCT 41.5 % (36.0-46.0); HGB 13.8 g/dL (12.0-15.5); Immature Grans % 0.3 %; Lymphocytes % 13.4; Mean Corp. HGB Concentration 33.3 g/dL (32.0-36.0); Mean Corpuscular Hemoglobin 30.5 pg (27.0-33.0); Mean Corpuscular Volume 91.8 fL (80-95); Mean Platelet Volume 10.5 fL (8.0-11.0); Monocytes % 9.9; Neutrophils % 75.1; Platelet Count 223 x1000/uL (130-400); RBC 4.52 m/cumm (4.00-5.20); RBC Distribution Width 12.8 % (11.7-14.6); White Blood Cell Count 7.98 k/cumm (4.4-10.8)
[2019-10-02 08:09] LABS: ALT 28 U/L (14-59); AST 26 U/L (15-37); Albumin 3.5 g/dL (3.4-5.0); Alkaline Phosphatase 72 U/L (46-116); Anion Gap 8.4 mmol/L (3-11); BUN 7 mg/dL (7-18); Bilirubin, Total 0.6 mg/dL (0.2-1.0); CO2 25.6 mmol/L (21.0-32.0); CREATININE 0.69 mg/dL (0.55-1.02); Calcium 8.2 mg/dL (8.5-10.1); Chloride 102 mmol/L (98-107); Glucose 105 mg/dL (74-106); Potassium 4.3 mmol/L (3.5-5.1); Sodium 136 mmol/L (136-145); Total Protein 6.8 g/dL (6.4-8.2)
[2019-10-02] MEDS: Aspirin E.C. 81 MG TABEC PO (09:23)
[2019-10-02] MEDS: Omega-3 Fatty Acids 1000 MG CAP PO (09:23)
[2019-10-02] MEDS: Magnesium Oxide 400 MG TAB PO (09:23)
[2019-10-02] MEDS: Multivitamin w/Minerals TAB 1 TAB PO (09:23)
[2019-10-02] MEDS: Vitamin E 400 UNITS CAP PO (09:24)
--- NOTE | 2019-10-02 10:28 | W.PM.PROGNOT ---
Date of Service Date of service: 10/02/19 Time of Service: 10:33 Assessment and Plan Assessment and plan (1) Pancreatitis: Status: Suspected Assessment and plan: Continues with abdominal pain Labs unremarkable Continue current treatment Recommend consulting with GI at [facility] No surgical interventions needed at this time We will sign off for now. Please re-consult if needed Qualifiers: Chronicity: acute Pancreatitis type: unspecified pancreatitis type Acute pancreatitis complication: no infection or necrosis Qualified Code(s): K85.90 - Acute pancreatitis without necrosis or infection, unspecified (2) Pancreatic duct dilated: Status: Acute Assessment and plan: has been present since CT scan 2010 Subjective Subjective Interval history since last seen: Mrs. Serrano is doing about the same. Pain has not improved. She is still requiring Morphine. Tolerating clear liquids without increase in pain. No new symptoms Exam GI Inspection: normal to inspection Palpation: soft, no hepatosplenomegaly and tender (mild, no guarding or rebound- LUQ and yasmine-umbilical) Objective Objective Clinical Data: Abnormal lab results 10/01/19 10/01/19 10/02/19 Range/Units 11:10 11:10 07:35 Absolute Lymphocytes (1.2-3.4) k/cumm Absolute Monocytes 1.00 H (0.11-0.7) k/cumm Sodium 134 L (136-145) mmol/L Potassium 3.4 L (3.5-5.1) mmol/L Chloride 97 L (98-107) mmol/L Calcium 8.2 L (8.5-10.1) mg/dL 10/02/19 Range/Units 07:35 Absolute Lymphocytes 1.07 L (1.2-3.4) k/cumm Absolute Monocytes 0.79 H (0.11-0.7) k/cumm Sodium (136-145) mmol/L Potassium (3.5-5.1) mmol/L Chloride (98-107) mmol/L Calcium (8.5-10.1) mg/dL Vital Signs Temperature 97.3 F L 10/02/19 05:05 Temperature Source Temporal Artery Scan 10/02/19 05:05 Pulse 79 10/02/19 05:05 Pulse Rhythm Regular 10/02/19 00:15 Respiratory Rate 18 10/02/19 05:05 Respiratory Effort Non-Labored 06/17/20 00:15 Respiratory Depth Normal 10/02/19 00:15 Respiratory Pattern Normal 10/02/19 00:15 Blood Pressure 140/72 10/02/19 05:05 Blood Pressure Mean 93 10/01/19 13:17 Blood Pressure Position Sitting 10/01/19 10:04 Pulse Oximetry 95 10/02/19 05:05 Oxygen Delivery Method Room Air 10/02/19 05:05 Oxygen Flow Rate 0 10/02/19 05:05 Pain Level 2 10/02/19 05:05 Intake & Output 10/01/19 10/01/19 10/02/19 11:59 23:59 11:59 Intake Total 1896.667 / 6977.274 2890 / 1555 Output Total 700 / 700 300 / 300 Balance 1196.667 / 1972.019 6456 / 1255 Weight 120 lb 119 lb 15.997 oz Intake: IV 1896.667 / 1896.667 955 / 955 Oral 600 / 600 Output: Urine 700 / 700 300 / 300 Other: Urine Color Yellow Yellow Urine Appearance Clear Clear Voiding Methods Toilet Toilet Laboratory Results WBC 7.98 k/cumm (4.4-10.8) 10/02/19 07:35 RBC 4.52 m/cumm (4.00-5.20) 10/02/19 07:35 Hgb 13.8 g/dL (12.0-15.5) 10/02/19 07:35 Hct 41.5 % (36.0-46.0) 10/02/19 07:35 MCV 91.8 fL (80-95) 10/02/19 07:35 MCH 30.5 pg (27.0-33.0) 10/02/19 07:35 MCHC 33.3 g/dL (32.0-36.0) 10/02/19 07:35 RDW 12.8 % (11.7-14.6) 10/02/19 07:35 Plt Count 223 x1000/uL (130-400) 10/02/19 07:35 MPV 10.5 fL (8.0-11.0) 10/02/19 07:35 Immature Gran % 0.3 % 10/02/19 07:35 Neutrophils % 75.1 10/02/19 07:35 Lymphocytes % 13.4 10/02/19 07:35 Monocytes % 9.9 10/02/19 07:35 Eosinophils % 1.0 10/02/19 07:35 Basophils % 0.3 10/02/19 07:35 Absolute Neutrophils 6.00 k/cumm (1.2-6.7) 10/02/19 07:35 Absolute Lymphocytes 1.07 k/cumm (1.2-3.4) L 10/02/19 07:35 Absolute Monocytes 0.79 k/cumm (0.11-0.7) H 10/02/19 07:35 Absolute Eosinophils 0.08 k/cumm (0.0-0.7) 10/02/19 07:35 Absolute Basophils 0.02 k/cumm (0.0-0.2) 10/02/19 07:35 Sodium 136 mmol/L (136-145) 10/02/19 07:35 Potassium 4.3 mmol/L (3.5-5.1) D 10/02/19 07:35 Chloride 102 mmol/L (98-107) 10/02/19 07:35 Carbon Dioxide 25.6 mmol/L (21.0-32.0) 10/02/19 07:35 Anion Gap 8.4 mmol/L (3-11) 10/02/19 07:35 BUN 7 mg/dL (7-18) 10/02/19 07:35 Creatinine 0.69 mg/dL (0.55-1.02) 10/02/19 07:35 Estimated GFR/1.73 m2 >= 60.00 (mL/min/1.73m2) 10/02/19 07:35 Glucose 105 mg/dL (74-106) 10/02/19 07:35 Calcium 8.2 mg/dL (8.5-10.1) L 10/02/19 07:35 Total Bilirubin 0.6 mg/dL (0.2-1.0) 10/02/19 07:35 AST 26 U/L (15-37) 10/02/19 07:35 ALT 28 U/L (14-59) 10/02/19 07:35 Alkaline Phosphatase 72 U/L (46-116) 10/02/19 07:35 Total Protein 6.8 g/dL (6.4-8.2) 10/02/19 07:35 Albumin 3.5 g/dL (3.4-5.0) 10/02/19 07:35 Lipase 88 U/L (73-393) 10/01/19 11:10 COVID-19 PCR Negative (Negative) 10/01/19 11:40 Nasopharyn COVID-19 PCR Not Applicable 10/01/19 11:40 Ref Test Perform Site [facility] lab 10/01/19 11:40
[2019-10-02] MEDS: Normal Saline Flush 10 ML SYR IVP ×4 (10:46→22:30)
[2019-10-02 12:02] LABS: Calculated LDL 105 mg/dL (<100); Cholesterol 189 mg/dL (<200); HDL Cholesterol 61 mg/dL (40-60); Triglyceride 115 mg/dL (<150)
[2019-10-02] MEDS: Mylanta Suspension 30 ML CUP PO (12:37)
--- NOTE | 2019-10-02 15:39 | W.PM.PROGNOT ---
Date of Service Date of service: 10/02/19 Time of Service: 15:39 Assessment and Plan Assessment and plan (1) Abdominal pain: Status: Acute Assessment and plan: We will advance her diet as tolerated and try to switch her from IV to oral narcotic analgesics. We will give her a dose of Relistor and put her on a bowel regimen. Qualifiers: Abdominal location: left upper quadrant Qualified Code(s): R10.12 - Left upper quadrant pain (2) Pancreatic duct dilated: Status: Acute Assessment and plan: Per radiology studies here at [facility] she has had a chronic ductal dilatation. Her current radiologic studies show no evidence of stone or mass. Patient will follow-up as an outpatient with [facility] gastroenterology for endoscopic ultrasound. (3) Pancreatitis: Status: Suspected Assessment and plan: Dr. Singletary recommended treating this patient empirically as if this were pancreatitis with analgesics and antiemetics and IV fluids and advance her diet as tolerated. She recommended outpatient EBUS with follow-up at [facility] gastroenterology. Qualifiers: Chronicity: acute Pancreatitis type: unspecified pancreatitis type Acute pancreatitis complication: no infection or necrosis Qualified Code(s): K85.90 - Acute pancreatitis without necrosis or infection, unspecified Subjective Subjective Interval history since last seen: Patient continues to have epigastric and left upper quadrant abdominal pain. No nausea. Pain is mild to moderate and controlled with narcotic analgesics. She has depressed appetite but has been tolerating clear liquids. She denies any flatus or bowel movement. I discussed her case with Dr. Orellana, gastroenterology fellow at [facility] and she feels that the patient does not need transfer to [facility] for any acute care or invasive procedure. She did recommend an endoscopic ultrasound at some point but felt it was not needed acutely given her negative MRCP and negative ultrasound findings. I did send the studies down for Dr. Orellana to review but she personally had not looked at the studies at the time that I spoke with her. Present time I am going to try to advance the patient's diet switch her over from IV to p.o. narcotics and put her on a bowel regimen to see if we can stimulate some flatus and a bowel movement. If she is tolerating her diet tonight and tomorrow morning I will discharge her home tomorrow for outpatient follow-up with gastroenterology. Exam Narrative Exam Narrative: Elderly female lying in bed in no acute distress. She is calm alert and oriented to person place time circumstance. Abdomen has a few scattered bowel sounds. Abdomen is mildly distended but soft and there is no guarding and no rebound tenderness and no palpable masses. Objective Objective Clinical Data: Abnormal lab results 10/02/19 10/02/19 Range/Units 07:35 07:35 Absolute Lymphocytes 1.07 L (1.2-3.4) k/cumm Absolute Monocytes 0.79 H (0.11-0.7) k/cumm Calcium 8.2 L (8.5-10.1) mg/dL LDL Cholesterol, Calc 105 H (<100) mg/dL Vital Signs Temperature 36.3 C L 10/02/19 05:05 Temperature Source Temporal Artery Scan 10/02/19 05:05 Pulse 79 10/02/19 05:05 Pulse Rhythm Regular 10/02/19 00:15 Respiratory Rate 18 10/02/19 05:05 Respiratory Effort Non-Labored 10/02/19 00:15 Respiratory Depth Normal 10/02/19 00:15 Respiratory Pattern Normal 10/02/19 00:15 Blood Pressure 140/72 10/02/19 05:05 Blood Pressure Mean 93 10/01/19 13:17 Blood Pressure Position Sitting 10/01/19 10:04 Pulse Oximetry 95 10/02/19 05:05 Oxygen Delivery Method Room Air 10/02/19 05:05 Oxygen Flow Rate 0 10/02/19 05:05 Pain Level 8 10/02/19 10:45 Intake & Output 10/01/19 10/02/19 10/02/19 23:59 11:59 23:59 Intake Total 1896.667 / 7476.743 4303 / 2555 Output Total 700 / 700 300 / 300 Balance 1196.667 / 8965.849 1635 / 2255 Weight 54.431 kg Intake: IV 1896.667 / 4127.682 6495 / 1955 Oral 600 / 600 Output: Urine 700 / 700 300 / 300 Other: Urine Color Yellow Yellow Urine Appearance Clear Clear Voiding Methods Toilet Toilet Laboratory Results WBC 7.98 k/cumm (4.4-10.8) 10/02/19 07:35 RBC 4.52 m/cumm (4.00-5.20) 10/02/19 07:35 Hgb 13.8 g/dL (12.0-15.5) 10/02/19 07:35 Hct 41.5 % (36.0-46.0) 10/02/19 07:35 MCV 91.8 fL (80-95) 10/02/19 07:35 MCH 30.5 pg (27.0-33.0) 10/02/19 07:35 MCHC 33.3 g/dL (32.0-36.0) 10/02/19 07:35 RDW 12.8 % (11.7-14.6) 10/02/19 07:35 Plt Count 223 x1000/uL (130-400) 10/02/19 07:35 MPV 10.5 fL (8.0-11.0) 10/02/19 07:35 Immature Gran % 0.3 % 10/02/19 07:35 Neutrophils % 75.1 10/02/19 07:35 Lymphocytes % 13.4 10/02/19 07:35 Monocytes % 9.9 10/02/19 07:35 Eosinophils % 1.0 10/02/19 07:35 Basophils % 0.3 10/02/19 07:35 Absolute Neutrophils 6.00 k/cumm (1.2-6.7) 10/02/19 07:35 Absolute Lymphocytes 1.07 k/cumm (1.2-3.4) L 10/02/19 07:35 Absolute Monocytes 0.79 k/cumm (0.11-0.7) H 10/02/19 07:35 Absolute Eosinophils 0.08 k/cumm (0.0-0.7) 10/02/19 07:35 Absolute Basophils 0.02 k/cumm (0.0-0.2) 10/02/19 07:35 Sodium 136 mmol/L (136-145) 10/02/19 07:35 Potassium 4.3 mmol/L (3.5-5.1) D 10/02/19 07:35 Chloride 102 mmol/L (98-107) 10/02/19 07:35 Carbon Dioxide 25.6 mmol/L (21.0-32.0) 10/02/19 07:35 Anion Gap 8.4 mmol/L (3-11) 10/02/19 07:35 BUN 7 mg/dL (7-18) 10/02/19 07:35 Creatinine 0.69 mg/dL (0.55-1.02) 10/02/19 07:35 Estimated GFR/1.73 m2 >= 60.00 (mL/min/1.73m2) 10/02/19 07:35 Glucose 105 mg/dL (74-106) 10/02/19 07:35 Calcium 8.2 mg/dL (8.5-10.1) L 10/02/19 07:35 Total Bilirubin 0.6 mg/dL (0.2-1.0) 10/02/19 07:35 AST 26 U/L (15-37) 10/02/19 07:35 ALT 28 U/L (14-59) 10/02/19 07:35 Alkaline Phosphatase 72 U/L (46-116) 10/02/19 07:35 Total Protein 6.8 g/dL (6.4-8.2) 10/02/19 07:35 Albumin 3.5 g/dL (3.4-5.0) 10/02/19 07:35 Triglycerides 115 mg/dL (<150) 10/02/19 07:35 Total Cholesterol 189 mg/dL (<200) 10/02/19 07:35 LDL Cholesterol, Calc 105 mg/dL (<100) H 10/02/19 07:35 HDL Cholesterol 61 mg/dL (40-60) 10/02/19 07:35 Lipase 88 U/L (73-393) 10/01/19 11:10 COVID-19 PCR Negative (Negative) 10/01/19 11:40 Nasopharyn COVID-19 PCR Not Applicable 10/01/19 11:40 Ref Test Perform Site [facility] lab 10/01/19 11:40
[2019-10-02 16:03] VITALS: BP 145/74; PULSE 80; RESP 16; TEMP 37; O2SAT 95
--- NOTE | 2019-10-02 16:03 | INITIAL_ITS ---
- If Service Date Differs Date of service: 10/02/19 Time of Service: 16:03 Care Management Initial Assess REASON FOR HOSPITALIZATION:: Abdominal Pain PAST MEDICAL HISTORY/PAST SURGICAL HISTORY:: Medical History . Basal cell carcinoma (Resolved). COPD (chronic obstructive pulmonary disease) (Chronic). Diverticulosis of colon (Inactive). Essential hypertension (Chronic). GERD (gastroesophageal reflux disease) (Chronic). Hyperlipidemia (Chronic). Malignant neoplasm of right breast (Inactive 2000). Invasive lobular carcinoma, ER+, [place]-, s/p chemo, radiation, mastectomy. Osteopenia (Chronic). Dexa 2014 at [facility]. Osteoporosis (Resolved). Fosamax x 10 yrs. Vitamin D deficiency (Resolved). Surgical History . History of esophagogastroduodenoscopy (EGD) (Chronic ~2012). History of modified radical mastectomy of right breast (Acute 02/06/01). History of tonsillectomy (Chronic). S/P colonoscopy (Acute 01/07/14) PREVIOUS FUNCTIONAL STATUS/SOCIAL/FAMILY SUPPORTS:: Maricruz lives in [place], [facility]. She has three children and six step children, and many grandchildren and great grandchildren. She has friends that live closeby and are supportive. 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 She is independent at baseline. CURRENT FUNCTIONAL STATUS:: Maricruz was sitting up in bed when CM met with her. She reported that the source of her abdominal pain has not yet been identified. She asked if the newspaper could be delivered in the morning. CM will continue to follow. ADVANCE DIRECTIVES:: None identified at this time. Has patient been provided with info about the portal/API?: No Did the patient sign up for the portal?: No CODE STATUS:: Full Code INSURANCE COVERAGE / FINANCIAL ISSUES:: [facility]/ BCBS CURRENT HOME/COMMUNITY SERVICES/EQUIPMENT:: No current equipment or services in the community. PRIMARY CARE PHYSICIAN:: Zeny James POTENTIAL DISCHARGE NEEDS:: Evaluations for further needs, follow up appointments PATIENT/FAMILY EDUCATION NEEDS:: Review discharge instructions regarding activity levels and medications, discussion of self care needs including ask me three. ANTICIPATED BARRIERS TO DISCHARGE:: None identified. TRANSPORTATION:: Via private vehicle by friends when ready. PLAN:: Anticipate Maricruz will return home with no additional services when ready. She will follow up with her PCP and discharge plan of care. Her friend will drive her home via private vehicle when ready. CM will continue to follow.
[2019-10-02] MEDS: Enoxaparin 40 MG/0.4 ML SYR SC (16:39)
[2019-10-02] MEDS: Methylnaltrexone 12 MG/0.6 ML VIAL 8 MG SC (16:40)
[2019-10-02] MEDS: Magnesium Citrate 300 ML BTL 150 ML PO (16:41)
[2019-10-02] MEDS: Ondansetron 4 MG/2 ML VIAL IVP ×2 (17:30→22:30)
[2019-10-02] MEDS: Pravastatin 20 MG TAB PO (20:50)
[2019-10-02] MEDS: Docusate Sodium 100 MG CAP PO (20:50)
[2019-10-02 20:59] VITALS: BP 145/77; PULSE 72; RESP 18; TEMP 36; O2SAT 95
[2019-10-02] MEDS: Senna TAB 1 TAB PO (21:02)
[2019-10-03] MEDS: POTASSIUM CHLORIDE/0.9% NACL 1,000 ML 75 MEQ IV ×2 (02:41→16:30)
[2019-10-03 02:44] VITALS: BP 154/73; PULSE 79; RESP 18; TEMP 36.9; O2SAT 94
[2019-10-03] MEDS: Acetaminophen 325 MG TAB PO ×3 (02:54→21:08)
[2019-10-03] MEDS: Normal Saline Flush 10 ML SYR IVP ×2 (06:27→08:32)
[2019-10-03] MEDS: HYDROmorphone 2 MG/ML VIAL IVP (06:27)
[2019-10-03 07:16] LABS: Abs Immature Grans 0.01 k/cumm (0.0-0.09); Absolute Basophil Count 0.02 k/cumm (0.0-0.2); Absolute Eosinophil Count 0.09 k/cumm (0.0-0.7); Absolute Lymphocyte Count 1.18 k/cumm (1.2-3.4); Absolute Monocyte Count 0.87 k/cumm (0.11-0.7); Basophils % 0.3; Eosinophils % 1.3; HCT 35.9 % (36.0-46.0); HGB 12.2 g/dL (12.0-15.5); Immature Grans % 0.1 %; Lymphocytes % 17.7; Mean Corpuscular Hemoglobin 31.1 pg (27.0-33.0); Mean Corpuscular Volume 91.6 fL (80-95); Mean Platelet Volume 10.5 fL (8.0-11.0); Neutrophils % 67.6; Platelet Count 241 x1000/uL (130-400); RBC 3.92 m/cumm (4.00-5.20); RBC Distribution Width 12.3 % (11.7-14.6); White Blood Cell Count 6.67 k/cumm (4.4-10.8)
[2019-10-03 07:28] LABS: ALT 21 U/L (14-59); AST 22 U/L (15-37); Alkaline Phosphatase 59 U/L (46-116); Amylase 34 U/L (25-115); Anion Gap 5.5 mmol/L (3-11); BUN 5 mg/dL (7-18); Bilirubin, Total 0.5 mg/dL (0.2-1.0); CO2 27.5 mmol/L (21.0-32.0); CREATININE 0.52 mg/dL (0.55-1.02); Chloride 103 mmol/L (98-107); Glucose 111 mg/dL (74-106); Lipase 70 U/L (73-393); Potassium 3.7 mmol/L (3.5-5.1); Sodium 136 mmol/L (136-145); Total Protein 5.9 g/dL (6.4-8.2)
[2019-10-03] MEDS: Aspirin E.C. 81 MG TABEC PO (08:31)
[2019-10-03] MEDS: Vitamin E 400 UNITS CAP PO (08:31)
[2019-10-03] MEDS: Docusate Sodium 100 MG CAP PO ×2 (08:31→21:07)
[2019-10-03] MEDS: Multivitamin w/Minerals TAB 1 TAB PO (08:31)
[2019-10-03] MEDS: Omega-3 Fatty Acids 1000 MG CAP PO (08:31)
[2019-10-03] MEDS: Magnesium Oxide 400 MG TAB PO (08:31)
[2019-10-03 08:34] VITALS: BP 133/71; PULSE 71; RESP 16; TEMP 36.1; O2SAT 94
--- NOTE | 2019-10-03 12:19 | PGE_ITS ---
Date of Service Date of service: 10/03/19 Time of Service: 12:19 Objective Objective Clinical Data: Abnormal lab results 10/03/19 10/03/19 Range/Units 06:51 06:51 RBC 3.92 L (4.00-5.20) m/cumm Hct 35.9 L (36.0-46.0) % Absolute Lymphocytes 1.18 L (1.2-3.4) k/cumm Absolute Monocytes 0.87 H (0.11-0.7) k/cumm BUN 5 L (7-18) mg/dL Creatinine 0.52 L (0.55-1.02) mg/dL Glucose 111 H (74-106) mg/dL Calcium 8.0 L (8.5-10.1) mg/dL Total Protein 5.9 L (6.4-8.2) g/dL Albumin 3.0 L (3.4-5.0) g/dL Vital Signs Temperature 36.1 C L 10/03/19 08:34 Temperature Source Tympanic 10/03/19 08:34 Pulse 71 10/03/19 08:34 Pulse Rhythm Regular 10/03/19 10:00 Respiratory Rate 16 10/03/19 08:34 Respiratory Effort Non-Labored 10/03/19 10:00 Respiratory Depth Normal 10/03/19 10:00 Respiratory Pattern Normal 10/03/19 10:00 Blood Pressure 133/71 10/03/19 08:34 Blood Pressure Mean 93 10/01/19 13:17 Blood Pressure Position Sitting 10/01/19 10:04 Pulse Oximetry 94 L 10/03/19 08:34 Oxygen Delivery Method Room Air 10/03/19 08:34 Oxygen Flow Rate 0 10/03/19 08:34 Pain Level 0 10/03/19 08:34 Intake & Output 10/02/19 10/03/19 10/03/19 23:59 11:59 23:59 Intake Total 1480 / 4055 862.5 / 862.5 Output Total 1550 / 1850 1000 / 1000 Balance -70 / 2205 -137.5 / -137.5 Intake: IV 1000 / 2975 862.5 / 862.5 Oral 480 / 1080 Output: Urine 1150 / 1450 1000 / 1000 Emesis 400 / 400 Other: Urine Color Yellow Yellow Urine Appearance Clear Clear Urine Odor None None Gastric Occult Blood Negative Voiding Methods Toilet Toilet Laboratory Results WBC 6.67 k/cumm (4.4-10.8) 10/03/19 06:51 RBC 3.92 m/cumm (4.00-5.20) L 10/03/19 06:51 Hgb 12.2 g/dL (12.0-15.5) 10/03/19 06:51 Hct 35.9 % (36.0-46.0) L 10/03/19 06:51 MCV 91.6 fL (80-95) 10/03/19 06:51 MCH 31.1 pg (27.0-33.0) 10/03/19 06:51 MCHC 34.0 g/dL (32.0-36.0) 10/03/19 06:51 RDW 12.3 % (11.7-14.6) 10/03/19 06:51 Plt Count 241 x1000/uL (130-400) 10/03/19 06:51 MPV 10.5 fL (8.0-11.0) 10/03/19 06:51 Immature Gran % 0.1 % 10/03/19 06:51 Neutrophils % 67.6 10/03/19 06:51 Lymphocytes % 17.7 10/03/19 06:51 Monocytes % 13.0 10/03/19 06:51 Eosinophils % 1.3 10/03/19 06:51 Basophils % 0.3 10/03/19 06:51 Absolute Neutrophils 4.50 k/cumm (1.2-6.7) 10/03/19 06:51 Absolute Lymphocytes 1.18 k/cumm (1.2-3.4) L 10/03/19 06:51 Absolute Monocytes 0.87 k/cumm (0.11-0.7) H 10/03/19 06:51 Absolute Eosinophils 0.09 k/cumm (0.0-0.7) 10/03/19 06:51 Absolute Basophils 0.02 k/cumm (0.0-0.2) 10/03/19 06:51 Sodium 136 mmol/L (136-145) 10/03/19 06:51 Potassium 3.7 mmol/L (3.5-5.1) 10/03/19 06:51 Chloride 103 mmol/L (98-107) 10/03/19 06:51 Carbon Dioxide 27.5 mmol/L (21.0-32.0) 10/03/19 06:51 Anion Gap 5.5 mmol/L (3-11) 10/03/19 06:51 BUN 5 mg/dL (7-18) L 10/03/19 06:51 Creatinine 0.52 mg/dL (0.55-1.02) L 10/03/19 06:51 Estimated GFR/1.73 m2 >= 60.00 (mL/min/1.73m2) 10/03/19 06:51 Glucose 111 mg/dL (74-106) H 10/03/19 06:51 Calcium 8.0 mg/dL (8.5-10.1) L 10/03/19 06:51 Total Bilirubin 0.5 mg/dL (0.2-1.0) 10/03/19 06:51 AST 22 U/L (15-37) 10/03/19 06:51 ALT 21 U/L (14-59) 10/03/19 06:51 Alkaline Phosphatase 59 U/L (46-116) 10/03/19 06:51 Total Protein 5.9 g/dL (6.4-8.2) L 10/03/19 06:51 Albumin 3.0 g/dL (3.4-5.0) L 10/03/19 06:51 Triglycerides 115 mg/dL (<150) 10/02/19 07:35 Total Cholesterol 189 mg/dL (<200) 10/02/19 07:35 LDL Cholesterol, Calc 105 mg/dL (<100) H 10/02/19 07:35 HDL Cholesterol 61 mg/dL (40-60) 10/02/19 07:35 Amylase 34 U/L (25-115) 10/03/19 06:51 Lipase 70 U/L (73-393) 10/03/19 06:51 Urine Color Cancelled 10/01/19 11:36 Urine Clarity Cancelled 10/01/19 11:36 Urine pH Cancelled 10/01/19 11:36 Ur Specific [place] Cancelled 10/01/19 11:36 Urine Protein Cancelled 10/01/19 11:36 Urine Ketones Cancelled 06/16/20 11:36 Urine Blood Cancelled 10/01/19 11:36 Urine Nitrite Cancelled 10/01/19 11:36 Urine Bilirubin Cancelled 10/01/19 11:36 Urine Urobilinogen Cancelled 10/01/19 11:36 Ur Leukocyte Esterase Cancelled 10/01/19 11:36 Urine Glucose Cancelled 10/01/19 11:36 COVID-19 PCR Negative (Negative) 10/01/19 11:40 Nasopharyn COVID-19 PCR Not Applicable 10/01/19 11:40 Ref Test Perform Site [place] [facility] lab 10/01/19 11:40
--- NOTE | 2019-10-03 12:45 | W.PM.PROGNOT ---
Date of Service Date of service: 10/03/19 Time of Service: 12:45 Assessment and Plan Assessment and plan (1) Abdominal pain: Status: Acute Assessment and plan: Patient states that she is glad to be on regular foods again but after the bowel movement felt nauseated and did not want to eat lunch although she ate breakfast. She states she will try to continue sips of liquids and will try to eat more at dinner. She is going to hold off on narcotic analgesics unless absolutely necessary.. Qualifiers: Abdominal location: left upper quadrant Qualified Code(s): R10.12 - Left upper quadrant pain (2) Pancreatic duct dilated: Status: Acute Assessment and plan: Per radiology studies here at [facility] she has had a chronic ductal dilatation. Her current radiologic studies show no evidence of stone or mass. Patient will follow-up as an outpatient with [facility] gastroenterology for endoscopic ultrasound. (3) Pancreatitis: Status: Suspected Assessment and plan: Dr. Singletary recommended treating this patient empirically as if this were pancreatitis with analgesics and antiemetics and IV fluids and advance her diet as tolerated. She recommended outpatient EBUS with follow-up at [facility] gastroenterology. Qualifiers: Chronicity: acute Pancreatitis type: unspecified pancreatitis type Acute pancreatitis complication: no infection or necrosis Qualified Code(s): K85.90 - Acute pancreatitis without necrosis or infection, unspecified Subjective Subjective Interval history since last seen: Patient had an explosive bowel movement this morning after being given laxatives and Relistor last night. She ate breakfast this morning but now is nauseated at lunchtime. She states she still has left upper quadrant abdominal pain. She is afebrile. Her repeat labs this morning are still unremarkable including her CBC CMP and amylase and lipase. I explained to her my phone conversation with the GI specialist yesterday was unproductive. They did recommend outpatient follow-up and possible endoscopic ultrasound. I explained to the patient that my plan is to continue empiric supportive treatment with IV fluids and antiemetics and analgesics. I explained her that might benchmark for sending her home is making sure that she is eating adequately so she will need IV fluids and that her pain is controlled with oral pain medications. Exam Narrative Exam Narrative: Elderly female sitting up in her chair in no acute distress but obviously was uncomfortable after having her explosive bowel movement. Lungs are clear to auscultation. Heart regular rate and rhythm. Abdomen is with scattered high-pitched bowel sounds in all 4 quadrants soft but with some tenderness in the left upper quadrant without rebound tenderness or guarding. Objective Objective Clinical Data: Abnormal lab results 10/03/19 10/03/19 Range/Units 06:51 06:51 RBC 3.92 L (4.00-5.20) m/cumm Hct 35.9 L (36.0-46.0) % Absolute Lymphocytes 1.18 L (1.2-3.4) k/cumm Absolute Monocytes 0.87 H (0.11-0.7) k/cumm BUN 5 L (7-18) mg/dL Creatinine 0.52 L (0.55-1.02) mg/dL Glucose 111 H (74-106) mg/dL Calcium 8.0 L (8.5-10.1) mg/dL Total Protein 5.9 L (6.4-8.2) g/dL Albumin 3.0 L (3.4-5.0) g/dL Vital Signs Temperature 36.1 C L 10/03/19 08:34 Temperature Source Tympanic 10/03/19 08:34 Pulse 71 10/03/19 08:34 Pulse Rhythm Regular 10/03/19 10:00 Respiratory Rate 16 10/03/19 08:34 Respiratory Effort Non-Labored 10/03/19 10:00 Respiratory Depth Normal 10/03/19 10:00 Respiratory Pattern Normal 10/03/19 10:00 Blood Pressure 133/71 10/03/19 08:34 Blood Pressure Mean 93 10/01/19 13:17 Blood Pressure Position Sitting 10/01/19 10:04 Pulse Oximetry 94 L 10/03/19 08:34 Oxygen Delivery Method Room Air 10/03/19 08:34 Oxygen Flow Rate 0 10/03/19 08:34 Pain Level 0 10/03/19 08:34 Intake & Output 10/02/19 10/03/19 10/03/19 23:59 11:59 23:59 Intake Total 1480 / 4055 862.5 / 862.5 Output Total 1550 / 1850 1000 / 1000 Balance -70 / 2205 -137.5 / -137.5 Intake: IV 1000 / 2975 862.5 / 862.5 Oral 480 / 1080 Output: Urine 1150 / 1450 1000 / 1000 Emesis 400 / 400 Other: Urine Color Yellow Yellow Urine Appearance Clear Clear Urine Odor None None Gastric Occult Blood Negative Voiding Methods Toilet Toilet Laboratory Results WBC 6.67 k/cumm (4.4-10.8) 10/03/19 06:51 RBC 3.92 m/cumm (4.00-5.20) L 10/03/19 06:51 Hgb 12.2 g/dL (12.0-15.5) 10/03/19 06:51 Hct 35.9 % (36.0-46.0) L 10/03/19 06:51 MCV 91.6 fL (80-95) 10/03/19 06:51 MCH 31.1 pg (27.0-33.0) 10/03/19 06:51 MCHC 34.0 g/dL (32.0-36.0) 10/03/19 06:51 RDW 12.3 % (11.7-14.6) 10/03/19 06:51 Plt Count 241 x1000/uL (130-400) 10/03/19 06:51 MPV 10.5 fL (8.0-11.0) 10/03/19 06:51 Immature Gran % 0.1 % 10/03/19 06:51 Neutrophils % 67.6 10/03/19 06:51 Lymphocytes % 17.7 10/03/19 06:51 Monocytes % 13.0 10/03/19 06:51 Eosinophils % 1.3 10/03/19 06:51 Basophils % 0.3 10/03/19 06:51 Absolute Neutrophils 4.50 k/cumm (1.2-6.7) 10/03/19 06:51 Absolute Lymphocytes 1.18 k/cumm (1.2-3.4) L 10/03/19 06:51 Absolute Monocytes 0.87 k/cumm (0.11-0.7) H 10/03/19 06:51 Absolute Eosinophils 0.09 k/cumm (0.0-0.7) 10/03/19 06:51 Absolute Basophils 0.02 k/cumm (0.0-0.2) 10/03/19 06:51 Sodium 136 mmol/L (136-145) 10/03/19 06:51 Potassium 3.7 mmol/L (3.5-5.1) 10/03/19 06:51 Chloride 103 mmol/L (98-107) 10/03/19 06:51 Carbon Dioxide 27.5 mmol/L (21.0-32.0) 10/03/19 06:51 Anion Gap 5.5 mmol/L (3-11) 10/03/19 06:51 BUN 5 mg/dL (7-18) L 10/03/19 06:51 Creatinine 0.52 mg/dL (0.55-1.02) L 10/03/19 06:51 Estimated GFR/1.73 m2 >= 60.00 (mL/min/1.73m2) 10/03/19 06:51 Glucose 111 mg/dL (74-106) H 10/03/19 06:51 Calcium 8.0 mg/dL (8.5-10.1) L 10/03/19 06:51 Total Bilirubin 0.5 mg/dL (0.2-1.0) 10/03/19 06:51 AST 22 U/L (15-37) 10/03/19 06:51 ALT 21 U/L (14-59) 10/03/19 06:51 Alkaline Phosphatase 59 U/L (46-116) 10/03/19 06:51 Total Protein 5.9 g/dL (6.4-8.2) L 10/03/19 06:51 Albumin 3.0 g/dL (3.4-5.0) L 10/03/19 06:51 Triglycerides 115 mg/dL (<150) 10/02/19 07:35 Total Cholesterol 189 mg/dL (<200) 10/02/19 07:35 LDL Cholesterol, Calc 105 mg/dL (<100) H 10/02/19 07:35 HDL Cholesterol 61 mg/dL (40-60) 10/02/19 07:35 Amylase 34 U/L (25-115) 10/03/19 06:51 Lipase 70 U/L (73-393) 10/03/19 06:51 Urine Color Cancelled 10/01/19 11:36 Urine Clarity Cancelled 10/01/19 11:36 Urine pH Cancelled 10/01/19 11:36 Ur Specific [place] Cancelled 10/01/19 11:36 Urine Protein Cancelled 10/01/19 11:36 Urine Ketones Cancelled 10/01/19 11:36 Urine Blood Cancelled 10/01/19 11:36 Urine Nitrite Cancelled 10/01/19 11:36 Urine Bilirubin Cancelled 10/01/19 11:36 Urine Urobilinogen Cancelled 10/01/19 11:36 Ur Leukocyte Esterase Cancelled 10/01/19 11:36 Urine Glucose Cancelled 10/01/19 11:36 COVID-19 PCR Negative (Negative) 10/01/19 11:40 Nasopharyn COVID-19 PCR Not Applicable 10/01/19 11:40 Ref Test Perform Site [place] [facility] lab 10/01/19 11:40
[2019-10-03 13:37] VITALS: BP 154/82; PULSE 79; RESP 16; O2SAT 96
[2019-10-03] MEDS: Enoxaparin 40 MG/0.4 ML SYR SC (15:53)
--- NOTE | 2019-10-03 16:51 | CMPROGNOTE_ITS ---
- If Service Date Differs Date of service: 10/03/19 Time of Service: 16:51 Care Management Progress Note S/O: Linda was lying in bed when CM met with her. CM delivered a newspaper to her, at the request of Maricruz. Per report, her diet was advanced, and she tolerated breakfast, but did not feel that she could eat lunch. She will continue to be monitored, and may be ready for discharge once she is able to tolerate a regular diet, and her pain is under control with PO pain meds. CM will continue to follow. A: Linda is a 74 year old female admitted to [facility] on 10/02/19 with abdominal pain. P: Anticipate Linda will return home when medically cleared. She will be driven home via private vehicle when ready. She will follow up with her PCP and discharge plan of care. CM will continue to follow.
[2019-10-03 17:35] VITALS: BP 163/81; PULSE 78; RESP 16; TEMP 36.3; O2SAT 98
[2019-10-03] MEDS: Senna TAB 1 TAB PO (21:07)
[2019-10-03] MEDS: Pravastatin 20 MG TAB PO (21:07)
[2019-10-04 03:30] VITALS: BP 159/87; PULSE 73; RESP 16; TEMP 36.9; O2SAT 95
[2019-10-04] MEDS: POTASSIUM CHLORIDE/0.9% NACL 1,000 ML 75 MEQ IV (06:00)
[2019-10-04 08:15] VITALS: BP 147/83; PULSE 96; RESP 18; TEMP 37.6; O2SAT 95
[2019-10-04] MEDS: Vitamin E 400 UNITS CAP PO (08:21)
[2019-10-04] MEDS: Aspirin E.C. 81 MG TABEC PO (08:21)
[2019-10-04] MEDS: Magnesium Oxide 400 MG TAB PO (08:21)
[2019-10-04] MEDS: Omega-3 Fatty Acids 1000 MG CAP PO (08:21)
[2019-10-04] MEDS: Docusate Sodium 100 MG CAP PO (08:21)
[2019-10-04] MEDS: Multivitamin w/Minerals TAB 1 TAB PO (08:21)
--- NOTE | 2019-10-04 10:00 | DSE_ITS ---
Date of service: 10/04/19 Time of Service: 10:00 DS: Diagnosis Discharge Diagnosis (1) Abdominal pain: Status: Resolved Asessment and Plan: Patient is discharged home on a regular diet although she is advised to avoid acidic foods and high fatty foods. She was given a short-term prescription for Tylenol # 3 one tab p.o. 3 times daily as needed pain #15 no refills. The [facility] controlled prescription monitoring (VPMS) was queried and no concerns were found. Patient is advised to follow up with her PCP and have him/her arrange for GI follow up at [facility]. (2) Pancreatic duct dilated: Status: Chronic Asessment and Plan: follow up evaluation w/ GI at [facility] is recommended to evaluate etiology of her abdominal pain and causes for chronic pancreatic ductal dilatation (3) Pancreatitis: Status: Ruled-out Asessment and Plan: no definite evidence for pancreatitis as the patient's amylase and lipase were normal. There was some vague peripancreatic fluid around the tail of the pancreas seen on the CT but not seen on the abdominal US. Discharge Plan Disposition Patient Disposition: HOME Condition: Improving Discharge Details Chief Complaint: Abd Prob Clinical Impression: Abdominal pain Reason For Visit: ABDOMINAL PAIN Admit Date/Time: 10/02/19 10:32 Admit Provider: Jaime Neff Attending Provider: Jaime Neff Primary Care Provider: Zeny James ED Provider: Talia Canela Hospital Course Hospital Course: 74-year-old female with history of asthma, hyperlipidemia, remote history of breast cancer status post right mastectomy with radiation and chemotherapy 18 years ago presented emergency department 2 days ago with nausea and left-sided upper quadrant abdominal pain with radiation to her back along with loss of appetite but no vomiting. She was evaluated in the emergency depar tment and diagnosed with pancreatitis despite having a normal lipase. CT of the abdomen pelvis at that time showed fluid around the tail the pancreas along with chronic dilatation of pancreatic duct. This was compared to a prior CT scan of the abdomen pelvis from March 17, 2011. Dr. Foley, general surgeon, has been consulted and she is unclear as to the etiology of the patient's pain. The patient has not had a BM since Monday but this is not unusual for the patient and she reasons that she has had nothing to eat since Monday and did not expect to need to have a BM. Work-up included serial labs including serial CBC CMP's lipase and amylase. Initial white count was mildly elevated 11,700 which subsequently declined down to 6600. There is no anemia. CMP was remarkable for hypokalemia potassium 3.4 but otherwise normal LFTs normal renal function. Potassium was subsequently corrected to a level 4.3 and at discharge was 3.7. Lipid profile was checked and found to have normal triglycerides of 115 total cholesterol 189 and LDL of 105 and HDL of 61. Initial lipase was normal at 160 4 repeat levels remain normal at 88 and 70. Amylase was normal at 34. Urinalysis on admission was remarkable for 40 mg/dL ketones small amount leukocyte esterase but negative for red blood cells protein nitrates and only rare bacteria. COVID-19 PCR was negative repeat level was obtained on the day of discharge and is pending at this time Radiologic studies included initial abdominal and pelvic CT scan for which radiologist read as showing fluid around the tail the pancreas may be indicative of acute pancreatitis and there is chronic dilatation of the pancreatic duct. This was compared to prior CT of the abdomen pelvis with contrast from March 17, 2011. Subsequent abdominal ultrasound showed dilated pancreatic duct with no obstructing mass or stone but questionable separate cyst in the tail versus a continuation of the dilated duct. Biliary tree was not dilated and no gallst ones or common duct stones were seen. MRI scan of the abdomen following MRCP protocol showed market dilatation of the pancreatic duct with no obstructing mass and a small amount of fluid around the tail the pancreas. Treatment consisted of initially bowel rest which is clear liquids parenteral narcotic analgesics antiemetics and IV fluids. Diet was slowly increased at the time of discharge she was tolerating a solid diet. She was having no significant pain and not requiring even Tylenol at the time of discharge. During hospitalization I spoke with the GI fellow at [facility] to discuss work-up and management I spoke with Dr. Orellana on October 02, 2019. She felt that the patient did not necessitated transfer to [facility] for any acute care or invasive procedure but recommended outpatient follow-up and indicated that endoscopic ultrasound as an outpatient would be indicated. As the patient was tolerating her diet and and desiring to return home I disch arged her with the caveat that she needs to nursing home in place at home until her second COVID-19 test is negative. Home Meds and New Rx's Prescriptions: New acetaminophen-codeine 300-30 mg tablet 1 tab PO TID PRNQty: 15 RF: 0 Continued aspirin [Ecotrin Low Strength] 81 MG tablet,delayed release (DR/EC) 81 mg PO DAILY RF: 0 vitamin B complex [B-Complex] 1 EACH tablet 1 ea PO DAILY RF: 0 calcium carbonate-vitamin D3 [Caltrate with Vitamin D3] 1 EACH tablet 1 ea PO DAILY RF: 0 omega 2-ssa-zrm-fish oil [Fish Oil] 1,000 mg (120 mg-180 mg) capsule 1 cap PO DAILY RF: 0 magnesium oxide 400 mg magnesium capsule 400 mg PO DAILY RF: 0 fluticasone propion-salmeterol [Wixela Inhub] 500-50 mcg/dose blister with device 1 inh IH BID Qty: 60 RF: 4 fluticasone propionate [Flonase Allergy Relief] 50 mcg/actuation spray,suspension 2 spray TALIA DAILY PRNRF: 0 pravastatin 20 mg Tablet 20 mg PO DAILY RF: 0 albuterol sulfate [ProAir HFA] 90 mcg/actuation Hfa Aerosol Inhaler 2 puff INHALATION BID RF: 0 vitamin E 400 unit Capsule 400 unit PO DAILY RF: 0 cholecalciferol (vitamin D3) [Vitamin D3] 1,000 unit Capsule 1,000 unit PO DAILY RF: 0 Centrum Silver Women 8 mg iron-400 mcg-300 mcg Tablet 1 tab PO DAILY RF: 0 Discharge Instructions Instructions: Pancreatitis (DC), Acute Abdominal Pain (DC) Stand Alone Forms: Nursing Discharge Form Referrals: David Kovacs DO [ [facility] STAFF PHYSICIAN] - 10/11/19 4:00 pm Activity:: Activity as Tolerated Equipment/Supplies:: No Equipment Needed Diet:: As Tolerated Discharge Orders Discharge Orders: Discharge Order (Routine); Ordered 10/04/19 Ordered By: Jaime Neff DS: Summary Status at Discharge Functional status at discharge: independent ambulation Overall status at discharge: patient is back to baseline Mental Status: mental status grossly normal Speech and Movement: speech and movement normal Mood: congruent mood Affect: normal affect Exam Narrative Exam Narrative: Alert and oriented person place time circumstance. No distress sitting up in the bed. Patient just completed her breakfast. She has no nausea or vomiting and no abdominal pain. Abdomen with normal active bowel sounds soft nondistended nontender to palpation no rebound tenderness and no guarding. Psych Mental Status: mental status grossly normal Speech and Movement: speech and movement normal Mood: congruent mood Affect: normal affect DS: Data Vitals/I&O Vitals and I&O: Vital Signs Temperature 37.6 C H 10/04/19 08:15 Temperature Source Skin 10/04/19 08:15 Pulse 96 H 10/04/19 08:15 Pulse Rhythm Regular 10/04/19 07:36 Respiratory Rate 18 10/04/19 08:15 Respiratory Effort Non-Labored 10/04/19 07:36 Respiratory Depth Normal 10/04/19 07:36 Respiratory Pattern Normal 10/04/19 07:36 Blood Pressure 147/83 H 10/04/19 08:15 Blood Pressure Mean 93 10/01/19 13:17 Blood Pressure Position Sitting 10/01/19 10:04 Pulse Oximetry 95 10/04/19 08:15 Oxygen Delivery Method Room Air 10/04/19 08:15 Oxygen Flow Rate 0 10/04/19 08:15 Pain Level 0 10/03/19 17:35 Intake & Output 10/03/19 10/03/19 10/04/19 11:59 23:59 11:59 Intake Total 1102.5 / 2362.5 1260 / 2362.5 1187.5 / 1187.5 Output Total 1000 / 2400 1400 / 2400 1000 / 1000 Balance 102.5 / -37.5 -140 / -37.5 187.5 / 187.5 Intake: IV 862.5 / 1872.5 1010 / 1872.5 1187.5 / 1187.5 Oral 240 / 490 250 / 490 Output: Urine 1000 / 2400 1400 / 2400 1000 / 1000 Other: Urine Color Yellow Yellow Yellow Urine Appearance Clear Clear Clear Urine Odor None None Stool Size Large Stool Characteristics Liquid Brown Voiding Methods Toilet Toilet Toilet [facility] Medical History (Updated 10/04/19 @ 10:35 by Jaime Neff) Basal cell carcinoma (Resolved) COPD (chronic obstructive pulmonary disease) (Chronic) Diverticulosis of colon (Inactive) Essential hypertension (Chronic) GERD (gastroesophageal reflux disease) (Chronic) Hyperlipidemia (Chronic) Malignant neoplasm of right breast (Inactive 2000) Invasive lobular carcinoma, ER+, MS-, s/p chemo, radiation, mastectomy. Osteopenia (Chronic) Dexa 2015 at [facility] Osteoporosis (Resolved) Fosamax x 10 yrs Pancreatic duct dilated (Chronic) Vitamin D deficiency (Resolved) Surgical History History of esophagogastroduodenoscopy (EGD) (Chronic ~2012) History of modified radical mastectomy of right breast (Acute 02/06/01) History of tonsillectomy (Chronic) S/P colonoscopy (Acute 01/07/14) Family History Mother , age 76 Depression Hypertension Father , age 68 Heart disease Hyperlipidemia Alcohol abuse Hypertension Sister Hyperlipidemia Breast cancer In her 50s Brother Depression Heart disease Hyperlipidemia Stroke Substance abuse Alcohol abuse Hypertension Myocardial infarction Maternal Grandfather Stroke Maternal Grandmother No problems noted. Paternal Grandfather No problems noted. Paternal Grandmother , At 92 Osteoporosis Social History (Updated 10/01/19 @ 23:16 by Jaime Neff) Smoking/Tobacco Use Status: Never Second Hand Exposure: Yes Alcohol Intake: current Alcohol Intake frequency: a few times a month Alcohol type: wine Substance use type: does not use Caregiver/Support person: No Household members: none Housing: house Communication Needs: None Do you need help understanding health information?: Rarely Pets and animals: No Sexually active: No Do you think of yourself as: straight/heterosexual Current gender identity: female What is your relationship status?: How often do you talk on the phone with friends or family?: three or more times per week How often do you get together with friends or relatives?: twice per week How often do you attend baptist or congregational services?: 4 or more times per year Do you belong to any clubs or organized social groups?: yes Panel score (0-1 are the most socially isolated patients): 3 What type of physical activity do you participate in: walking and other Details: Wellness @PT Duration: 45-60 minutes/day Frequency: 3-4 times per week Marti/Yarsani: Evangelical Special marti needs: No Seatbelt use: always Helmet use: Yes Helmet use: sometimes Drive intox or ride w/intox driver trainee: No Do you feel safe at home: Yes Do you feel safe in your relationship?: Yes History History 6 Para Hx # Term Pregnancies Multiple births Hx # Pregnancies Ectopic pregnancies AB induced Hx Number of Living Children AB spontaneous 6
--- NOTE | 2019-10-04 18:22 | PDOC.CMDIS ---
- If Service Date Differs Date of service: 10/04/19 Time of Service: 18:22 LACE Index Scoring Tool - Questions: Length of Stay (in days): 3 Acuity (Admit via E.D.?): Yes Comorbidities: Chronic Pulmonary Disease E.D. Visits: 2 - Answers: Total Score: 10 Risk of Readmission: High Risk Care Management Discharge Reason for Hospitalization: Abdominal Pain Discharge Plan: Linda will return home with no additional services at this time. She will follow up with her PCP and discharge plan of care. She will drive herself home. She is happy to return home. Patient/Family Education Needs: Review discharge instructions regarding activity levels and medications, discussion of self care needs including ask me three and goals of care.
== END 2019-10-04 12:50 | disposition home or self-care (01) | DRG 392 ==
LOC: ER 12:50 → MS 16:46
PROVIDERS: Admitting Provider Internal Medicine; Emergency Provider Physician Assistant; PCP Nurse Practitioner Family; Visit Provider Internal Medicine
DX: R10.12 Left upper quadrant pain (principal); R63.0 Anorexia; R11.0 Nausea; K86.89 Other specified diseases of pancreas; J44.9 Chronic obstructive pulmonary disease, unspecified; K21.9 Gastro-esophageal reflux disease without esophagitis; I10 Essential (primary) hypertension; E78.5 Hyperlipidemia, unspecified; Z85.3 Personal history of malignant neoplasm of breast; M85.80 Other specified disorders of bone density and structure, unspecified site; E55.9 Vitamin D deficiency, unspecified; Z90.11 Acquired absence of right breast and nipple; Z92.3 Personal history of irradiation; E87.6 Hypokalemia; Z11.59 Encounter for screening for other viral diseases
CPT/HCPCS: 36415; 80053; 80061; 83690; 93005; 94640; 96361; 96374; 96375; 99220; 99222; 99232; 99233; 99239; 99253; 99285; J1650; U0003; 74181; 76705; 81003; 82150; 85025; 93010; G0378; J2405

== ENCOUNTER 2019-10-07 10:06 | Outpatient (CLI) | payer MEDICARE, BC, SELFPAY ==
[2019-10-07 21:46] LABS: COVID-19 RT-PCR UVMMC Result Negative (Negative)
== END 2019-10-07 10:26 ==
PROVIDERS: PCP Nurse Practitioner Family; Visit Provider Nurse Practitioner Acute Care
DX: Z03.818 Encounter for observation for suspected exposure to other biological agents ruled out (principal)
CPT/HCPCS: U0003

== ENCOUNTER 2020-04-13 18:51 | Outpatient (REF) | payer MEDICARE, BC, SELFPAY ==
[2020-04-13 17:30] LABS: Absolute Basophil Count 0.04 10^3/uL (0.0-0.2); Absolute Eosinophil Count 0.32 10^3/uL (0.0-0.7); Absolute Lymphocyte Count 1.22 10^3/uL (1.2-3.4); Basophils % 0.4; Eosinophils % 2.9; HCT 30.6 % (36.0-46.0); HGB 10.2 g/dL (11.2-15.7); Immature Grans % 0.9; Lymphocytes % 11.1; MCH 30.4 pg (27.0-33.0); MCHC 33.3 % (32.0-36.0); MCV 91.1 fL (80-95); MPV 11.5 fL (8.0-11.0); Monocytes % 7.4; Neutrophils % 77.3; Nucleated RBC 0 %; Platelet Count 401 10^3/uL (130-400); RBC 3.36 10^6/uL (3.93-5.22); RDW 13.1 % (11.7-14.6); RDW-SD 42.9 fL; WBC 11.02 10^3/uL (4.4-10.8)
[2020-04-13 17:32] LABS: Absolute Monocyte Count 0.82 10^3/uL (0.1-0.8); Absolute Neutrophil Count 8.52 10^3/uL (1.2-6.7)
[2020-04-13 18:14] LABS: ALT 27 U/L (14-59); AST 18 U/L (15-37); Albumin 2.3 g/dL (3.4-5.0); Alkaline Phosphatase 146 U/L (46-116); Anion Gap 6.5 mmol/L (3-11); BUN 19 mg/dL (7-18); Bilirubin, Total 0.2 mg/dL (0.2-1.0); CO2 25.5 mmol/L (21.0-32.0); CREATININE 0.45 mg/dL (0.55-1.02); Calcium 7.7 mg/dL (8.5-10.1); Chloride 99 mmol/L (98-107); Glucose 185 mg/dL (74-106); Magnesium 1.6 mg/dL (1.8-2.4); Potassium 4.5 mmol/L (3.5-5.1); Sodium 131 mmol/L (136-145); Triglyceride 162 mg/dL (<150)
[2020-04-15 09:44] LABS: Prealbumin 24 mg/dL (20-40)
== END 2020-04-13 19:11 ==
LOC: LBN 18:51
PROVIDERS: PCP Nurse Practitioner Family; Visit Provider Nurse Practitioner Family
DX: E63.8 Other specified nutritional deficiencies (principal); Z48.3 Aftercare following surgery for neoplasm; Z45.1 Encounter for adjustment and management of infusion pump
CPT/HCPCS: 80053; 83735; 84100; 84134; 84478; 85025

== ENCOUNTER 2020-04-20 12:57 | Outpatient (REF) | payer MEDICARE, BC, SELFPAY ==
[2020-04-20 13:35] LABS: Abs Immature Grans 0.04 10^3/uL (0.0-0.06); Absolute Basophil Count 0.06 10^3/uL (0.0-0.2); Absolute Eosinophil Count 0.29 10^3/uL (0.0-0.7); Absolute Lymphocyte Count 1.12 10^3/uL (1.2-3.4); Absolute Monocyte Count 0.77 10^3/uL (0.1-0.8); Absolute Neutrophil Count 3.98 10^3/uL (1.2-6.7); Eosinophils % 4.6; HCT 32.7 % (36.0-46.0); HGB 10.8 g/dL (11.2-15.7); Immature Grans % 0.6; Lymphocytes % 17.9; MCH 30.5 pg (27.0-33.0); MCV 92.4 fL (80-95); MPV 11.4 fL (8.0-11.0); Monocytes % 12.3; Neutrophils % 63.6; Nucleated RBC 0 %; RBC 3.54 10^6/uL (3.93-5.22); RDW 13.2 % (11.7-14.6); RDW-SD 44.5 fL; WBC 6.26 10^3/uL (4.4-10.8)
[2020-04-20 14:07] LABS: Diff Comment PLT Morph Reviewed; Polychromasia Present
[2020-04-20 14:22] LABS: ALT 26 U/L (14-59); AST 19 U/L (15-37); Albumin 2.7 g/dL (3.4-5.0); Alkaline Phosphatase 124 U/L (46-116); BUN 26 mg/dL (7-18); Bilirubin, Total 0.4 mg/dL (0.2-1.0); CREATININE 0.52 mg/dL (0.55-1.02); Calcium 8.4 mg/dL (8.5-10.1); Chloride 99 mmol/L (98-107); Glucose 167 mg/dL (74-106); Magnesium 1.8 mg/dL (1.8-2.4); Potassium 4.8 mmol/L (3.5-5.1); Sodium 131 mmol/L (136-145); Total Protein 5.7 g/dL (6.4-8.2); Triglyceride 112 mg/dL (<150)
[2020-04-20 14:45] LABS: PHOSPHORUS 3.7 mg/dL (2.6-4.7)
== END 2020-04-20 13:17 ==
LOC: LBN 12:57
PROVIDERS: PCP Nurse Practitioner Family; Visit Provider Nurse Practitioner Family
DX: D49.0 Neoplasm of unspecified behavior of digestive system (principal); F63.9 Impulse disorder, unspecified; Z48.815 Encounter for surgical aftercare following surgery on the digestive system; R79.89 Other specified abnormal findings of blood chemistry
CPT/HCPCS: 80053; 83735; 84100; 84478; 85025

== ENCOUNTER 2020-04-23 18:53 | Outpatient (REF) | payer MEDICARE, BC, SELFPAY ==
[2020-04-23 17:03] LABS: Abs Immature Grans 0.02 10^3/uL (0.0-0.06); Absolute Basophil Count 0.04 10^3/uL (0.0-0.2); Absolute Eosinophil Count 0.24 10^3/uL (0.0-0.7); Absolute Lymphocyte Count 1.27 10^3/uL (1.2-3.4); Absolute Monocyte Count 0.86 10^3/uL (0.1-0.8); Absolute Neutrophil Count 4.68 10^3/uL (1.2-6.7); Basophils % 0.6; Eosinophils % 3.4; HCT 33.1 % (36.0-46.0); Immature Grans % 0.3; Lymphocytes % 17.9; MCH 30.2 pg (27.0-33.0); MCHC 33.2 % (32.0-36.0); MCV 90.9 fL (80-95); MPV 11.9 fL (8.0-11.0); Monocytes % 12.1; Neutrophils % 65.7; Nucleated RBC 0 %; Platelet Count 315 10^3/uL (130-400); RBC 3.64 10^6/uL (3.93-5.22); RDW 13.3 % (11.7-14.6); RDW-SD 44.4 fL; WBC 7.11 10^3/uL (4.4-10.8)
[2020-04-23 17:13] LABS: ALT 24 U/L (14-59); AST 17 U/L (15-37); Albumin 2.9 g/dL (3.4-5.0); Alkaline Phosphatase 117 U/L (46-116); Anion Gap 9.9 mmol/L (3-11); BUN 20 mg/dL (7-18); Bilirubin, Total 0.3 mg/dL (0.2-1.0); CO2 24.1 mmol/L (21.0-32.0); CREATININE 0.53 mg/dL (0.55-1.02); Calcium 8.2 mg/dL (8.5-10.1); Chloride 96 mmol/L (98-107); Glucose 168 mg/dL (74-106); Magnesium 1.8 mg/dL (1.8-2.4); Potassium 4.4 mmol/L (3.5-5.1); Sodium 130 mmol/L (136-145); Total Protein 5.9 g/dL (6.4-8.2); Triglyceride 123 mg/dL (<150)
[2020-04-23 17:23] LABS: PHOSPHORUS 3.4 mg/dL (2.6-4.7)
[2020-04-27 10:06] LABS: Prealbumin 23 mg/dL (20-40)
== END 2020-04-23 19:13 ==
LOC: LBN 18:53
PROVIDERS: PCP Nurse Practitioner Family; Visit Provider Nurse Practitioner Family
DX: E63.9 Nutritional deficiency, unspecified (principal); R79.89 Other specified abnormal findings of blood chemistry; Z48.815 Encounter for surgical aftercare following surgery on the digestive system
CPT/HCPCS: 80053; 83735; 84100; 84134; 84478; 85025

== ENCOUNTER 2020-04-30 18:22 | Outpatient (REF) | payer MEDICARE, BC, SELFPAY ==
[2020-04-30 19:14] LABS: Abs Immature Grans 0.04 10^3/uL (0.0-0.06); Absolute Basophil Count 0.04 10^3/uL (0.0-0.2); Absolute Eosinophil Count 0.19 10^3/uL (0.0-0.7); Absolute Lymphocyte Count 1.36 10^3/uL (1.2-3.4); Absolute Neutrophil Count 3.91 10^3/uL (1.2-6.7); Basophils % 0.6; HCT 35.3 % (36.0-46.0); HGB 11.6 g/dL (11.2-15.7); Immature Grans % 0.6; Lymphocytes % 21.5; MCH 30.4 pg (27.0-33.0); MCHC 32.9 % (32.0-36.0); MCV 92.7 fL (80-95); MPV 11.6 fL (8.0-11.0); Monocytes % 12.6; Neutrophils % 61.7; Nucleated RBC 0 %; Platelet Count 344 10^3/uL (130-400); RBC 3.81 10^6/uL (3.93-5.22); RDW 13.5 % (11.7-14.6); RDW-SD 46.5 fL; WBC 6.34 10^3/uL (4.4-10.8)
[2020-04-30 19:23] LABS: ALT 41 U/L (14-59); AST 28 U/L (15-37); Alkaline Phosphatase 103 U/L (46-116); Anion Gap 11.4 mmol/L (3-11); BUN 14 mg/dL (7-18); Bilirubin, Total 0.4 mg/dL (0.2-1.0); CO2 25.6 mmol/L (21.0-32.0); CREATININE 0.58 mg/dL (0.55-1.02); Calcium 8.5 mg/dL (8.5-10.1); Chloride 95 mmol/L (98-107); Glucose 153 mg/dL (74-106); Sodium 132 mmol/L (136-145); Triglyceride 131 mg/dL (<150)
[2020-04-30 19:52] LABS: PHOSPHORUS 4.6 mg/dL (2.6-4.7)
[2020-05-04 09:32] LABS: Prealbumin 24 mg/dL (20-40)
== END 2020-04-30 18:42 ==
LOC: LBN 18:22
PROVIDERS: PCP Nurse Practitioner Family; Visit Provider Nurse Practitioner Family
DX: E63.9 Nutritional deficiency, unspecified (principal); E78.5 Hyperlipidemia, unspecified; I10 Essential (primary) hypertension; Z48.815 Encounter for surgical aftercare following surgery on the digestive system
CPT/HCPCS: 80053; 83735; 84100; 84134; 84478; 85025

== ENCOUNTER 2020-05-07 16:50 | Outpatient (REF) | payer MEDICARE, BC, SELFPAY ==
[2020-05-07 17:31] LABS: Abs Immature Grans 0.03 10^3/uL (0.0-0.06); Absolute Basophil Count 0.06 10^3/uL (0.0-0.2); Absolute Eosinophil Count 0.13 10^3/uL (0.0-0.7); Absolute Lymphocyte Count 1.43 10^3/uL (1.2-3.4); Absolute Monocyte Count 0.79 10^3/uL (0.1-0.8); Absolute Neutrophil Count 4.87 10^3/uL (1.2-6.7); Basophils % 0.8; Eosinophils % 1.8; HCT 34.4 % (36.0-46.0); HGB 11.4 g/dL (11.2-15.7); Immature Grans % 0.4; Lymphocytes % 19.6; MCH 30.6 pg (27.0-33.0); MCHC 33.1 % (32.0-36.0); MCV 92.5 fL (80-95); MPV 11.7 fL (8.0-11.0); Monocytes % 10.8; Neutrophils % 66.6; Nucleated RBC 0 %; Platelet Count 304 10^3/uL (130-400); RBC 3.72 10^6/uL (3.93-5.22); RDW 13.3 % (11.7-14.6); RDW-SD 45.1 fL; WBC 7.31 10^3/uL (4.4-10.8)
[2020-05-07 18:06] LABS: ALT 44 U/L (14-59); AST 22 U/L (15-37); Albumin 3.1 g/dL (3.4-5.0); Alkaline Phosphatase 98 U/L (46-116); BUN 19 mg/dL (7-18); Bilirubin, Total 0.3 mg/dL (0.2-1.0); CREATININE 0.47 mg/dL (0.55-1.02); Calcium 8.4 mg/dL (8.5-10.1); Chloride 98 mmol/L (98-107); Glucose 120 mg/dL (74-106); Sodium 132 mmol/L (136-145); Triglyceride 88 mg/dL (<150)
[2020-05-07 18:36] LABS: Magnesium 1.8 mg/dL (1.8-2.4); PHOSPHORUS 3.9 mg/dL (2.6-4.7)
[2020-05-11 11:14] LABS: Prealbumin 20 mg/dL (20-40)
== END 2020-05-07 17:10 ==
LOC: LBN 16:50
PROVIDERS: PCP Nurse Practitioner Family; Visit Provider Surgery
DX: Z48.815 Encounter for surgical aftercare following surgery on the digestive system (principal); E63.9 Nutritional deficiency, unspecified; Z45.1 Encounter for adjustment and management of infusion pump
CPT/HCPCS: 80053; 83735; 84100; 84134; 84478; 85025

== ENCOUNTER 2020-06-15 09:34 | Emergency (ER) | payer MEDICARE, BC, SELFPAY ==
--- OUTSIDE RECORDS SUMMARY | 2020-06-15 09:46 | XMS_ITS ---
:1945 Author Care Team Providers Name Role Phone RICKY BROWN LEARNING SUPPORT ASSISTANT Primary Care Provider [phone] Allergies Code Code System Name Reaction Severity Status Onset Animal Dander ? ? Active ? Cosmetic ? ? Active ? Grass Pollen ? ? Active ? 632667 RxNorm House Dust ? ? Active ? Iodinated ? ? Active ? Contrast Media 266181 RxNorm Lipitor ? ? Active ? 183496 RxNorm Mold ? ? Active ? Medications Name Status Start Date Stop Date ? ? Adult Low Dose Aspirin 81 mg tablet,delayed release Active ? Not available Take 1 tablet every day by oral route. Advair HFA 115 mcg-21 mcg/actuation aerosol inhaler Completed ? 04/19/2019 Inhale 2 puffs twice a day by inhalation route. amoxicillin 500 mg capsule Completed ? 11/08 one capsule every eight hours atorvastatin 10 mg tablet Completed ? 2017 TAKE 1 TABLET BY MOUTH DAILY B complex-vitamin C-folic acid Active ? N ot available 1 daily Calcium Citrate + D 315 mg-5 mcg (200 unit) tablet Active ? Not available Take 1 tablet every day by oral route. Centrum Silver Women Active ? Not availab le 1 tablet daily desonide 0.05 % topical ointment Completed ? 06/21/2019 Apply 1 application every day by topical route. Fasenra Pen 30 mg/mL subcutaneous auto-injector Active ? Not available Inject 1 mL every month by subcutaneous route. Fish Oil 1,000 mg (120 mg-180 mg) capsule Active ? Not available Take 2 capsules every day by oral route. Fish Oil 300 mg-1,000 mg capsule,delayed release Completed 09/08/2016 09/08/2016 2 (two) Capsule: daily fluocinolone 0.01 % scalp oil and shower cap Completed ? 06/21/2019 APPLY THIN LAYER TO DAMP SCALP, MASSAGE WELL AND COVER WITH SHOWER CAP. LEAVE ON FOR 4 HOURS OR OVERNIGHT THEN WASH OFF fluticasone propionate 50 Active ? Not av ailable mcg/actuation nasal spray,suspension hydrochlorothiazide 12.5 mg tablet Completed ? 06/21/2019 TAKE 1 TABLET BY MOUTH DAILY ketoconazole 2 % shampoo Completed ? 020 Apply 1 application 3 times a week by topical route for 30 days . lecithin 1,200 mg capsule Completed ? 2017 Take 1 capsule every day by oral route. magnesium Active ? Not available one daily melatonin Active 09/08/2018 Not available 5mg every night montelukast 10 mg tablet Active ? Not bo ilable omeprazole 20 mg tablet,delayed release Completed 06/02/19 17 09/08/2016 1 (one) Tablet: daily pantoprazole 40 mg tablet,delayed release Completed ? 10/30/2017 Take 1 tablet twice a day by oral route for 30 days. penicillin V potassium 500 mg Completed ? tablet pravastatin 20 mg tablet Active ? Not bo ilable TAKE 1 TABLET BY MOUTH DAILY prednisone 10 mg tablet Completed ? 06/21/19 20 ProAir HFA 90 mcg/actuation Active ? Not available aerosol inhaler Shingrix (PF) 50 mcg/0.5 mL Active ? Not available intramuscular suspension, kit Spiriva Respimat 1.25 mcg/actuation solution for inhalation Comp leted ? 06/21/2019 Inhale 2 puffs every day by inhalation route. sulfamethoxazole 800 Completed ? 09/28/2017 mg-trimethoprim 160 mg tablet triamcinolone acetonide 0.1 % topical cream Completed ? 06/21/2019 APPLY A THIN LAYER TO RASH OF NECK 2 TIMES PER DAY UNTIL RASH R ESOLVES Vitamin D3 25 mcg (1,000 unit) capsule Active ? Not available Take 1 capsule every day by oral route. Vitamin E Natural Blend 400 unit capsule Active ? Not available Take 1 capsule every day by oral route. Wixela Inhub 250 mcg-50 mcg/dose Active ? Not available powder for inhalation Wixela Inhub 500 mcg-50 mcg/dose powder for inhalation Active ? Not available Inhale 1 puff twice a day by inhalation route. Problems Name Status Onset Date Source ? Hyperlipidemia Active ? History Hypertensive Disorder Active ? History Asthma Active ? History Exacerbation of Asthma Active ? History Gastroesophageal Reflux Disease without Active ? History Esophagitis Diverticular Disease of Colon Active ? Hi story Seborrheic Dermatitis Active ? History Dupuytren's Disease of Palm Active ? Hist ory Plantar Fascial Fibromatosis Active ? His tory Collapse of Vertebra Active ? History Bone Density Finding Active ? History Adult Health Examination Active ? History Trochanteric Bursitis of Right Hip Active ? History Lentigo Active ? 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 History Breast Procedure by Method Unknown ? History Procedures Date Name Performed by ? 04/17/2000 Breast Biopsy Information not avai lable Notes: left 04/17/2000 Mastectomy Information not avai lable Notes: right 04/17/1951 Tonsillectomy Information not avai lable 09/28/2017 XR, Chest, 2 View Xray [facility] [address] [place], [place] [address] (Work [address]) 11/08/2018 US, Echocardiogram Xray [facility] [address] [place], [place] [address] (Work Place) 11/08/2018 Exercise Stress Test Xray [facility] [facility], [place] [address] (Work Place) Results Lab Results Date Name Specimen Result Interpretation Description Value Range Status Address ? 06/04/2019 CBC W/ ? No ? ? ? Mika bernard Auto observation Vermo nt Diff recorded. [facility]: [address], [place] 05/31/2019 CBC W/ ? No ? ? ? Mika bernard Auto observation Vermo nt Diff recorded. [facility]: [address], [place] 05/31/2019 CBC W/ ? No ? ? ? Mika bernard Auto observation Vermo nt Diff recorded. [facility]: [address], [place] 05/31/2019 Ige, ? No ? ? ? Mika bernard Total, observation Vermo nt Serum recorded. [facility]: [address], [place] 11/23/2018 Lipid ? No ? ? ? Mika bernard Panel, observation Vermo nt Serum recorded. [facility]: [address], [place] 11/23/2018 CBC W/ ? No ? ? ? Mika bernard Auto observation Vermo nt Diff recorded. [facility]: [address], [place] 07/24/2017 Culture UR ? Final microbiology ? Final [place] , Urine results Hospital Lab (Internal) : [address] 07/24/2017 sensiti MISC ? Sens* ? ? Final [facility] vities[ Hospital Lab I] (Internal) : [address] 07/24/2017 Urinaly UR ? UA-color yellow pale Final [place], yellow Hospital L ab Dipstic (Internal ): k, [address] ? ? UR ? UA-appear clear clear Final [facility] ab (Internal) : [address] t ? ? UR ? UA-gluc negative negative Final [facility] ab (Internal) : [address] t ? ? UR ? UA-bili negative negative Final [facility] ab (Internal) : [address] t ? ? UR ? UA-ketone negative negative Final No [facility] ab (Internal) : [address] t ? ? UR ? UA-spec 1.010 1.003-1.0 Final [place] [address] Hospital L ab (Internal) : [address] t ? ? UR ABNORMAL UA-blood trace negative Final [facility] ab (Internal) : [address] t ? ? UR ? UA-pH 7.0 [pH] 4.6-8.0 Final [facility] [pH] [facility] ab (Internal) : [address] t ? ? UR ? UA-prot negative negative Final [facility] ab (Internal) : [address] t ? ? UR ? UA-urobil normal normal Final [facility] ab (Internal) : [address] t ? ? UR ? UA-nitrite negative negative Final N [facility] ab (Internal) : [address] t ? ? UR ABNORMAL UA-leuk Est small negative Final [facility] ab (Internal) : [address] Past Encounters 07/12/2019 Asthma Yissel Cruz MD: [address] [place] [address] Dr mercer [facility], [place] [address], Ph. 06/21/2019 Asthma Yissel Cruz MD: [address] [place] [address] Dr ruslan Arriaga [address] [place] [phone], Ph. 05/17/2019 Asthma Yissel Cruz MD: [address] [place] [address] Dr mercer [address] [phone], Ph. 04/19/2019 Asthma Yissel Cruz MD: [address] [place] [address] Dr mercer [address] [phone], Ph. Social History Tobacco Smoking Status Never Smoker Vaccine List Vaccine Type influenza, seasonal, injectable 04/17/2015 pneumococcal conjugate PCV 13 10/27/2016?0.5 mL pneumococcal polysaccharide PPV23 01/28/2013 Tdap 04/30/2012 01/27/2014 zoster live 06/10/2013 zoster recombinant 08/17/2018 Notes: rec'd '18- influenza v accine at [facility] and Shingrix #1 on 03/29/18 at [facility] Plan of Care Reminders Provider Appointments None ? ? recorded. Lab None ? ? recorded. Referral None ? ? recorded. Procedures None ? ? recorded. Surgeries None ? ? recorded. Imaging None ? ? recorded. Vitals 07/12/2019 10:45AM Office 15 Height 157.48 cm 06/21/2019 01:45PM Office 30 Height Weight BMI Blood Pressure 157.48 cm 59.4 kg 24 kg/m2 122/64 mm[Hg] 05/17/2019 12:30PM Office 30 Height Weight BMI Blood Pressure 157.48 cm 59.2 kg 23.9 kg/m2 136/89 mm[Hg] 04/19/2019 09:00AM New Patient 45 Height Weight BMI Blood Pressure 157.48 cm 58.9 kg 23.8 kg/m2 128/78 mm[Hg] 11/08/2018 11:00AM AWV 40 Height Weight BMI Blood Pressure 156.21 cm 57.02 kg 23.4 kg/m2 130/72 mm[Hg] 03/30/2018 03:00PM Preop Clearance 40 Height Weight BMI Blood Pressure 156.85 cm 59.56 kg 24.2 kg/m2 112/82 mm[Hg] 10/30/2017 10:40AM AWV 40 Height Weight BMI Blood Pressure 156.85 cm 57.32 kg 23.3 kg/m2 110/78 mm[Hg] 09/28/2017 11:20AM Acute 20 Height Weight BMI 156.85 cm 58.51 kg 23.8 kg/m2 10/27/2016 Height Blood Pressure 156.85 cm 122/80 mm[Hg] 10/27/2016 Weight 58.42 kg 09/08/2016 Height Blood Pressure 155.57 cm 138/88 mm[Hg] 09/08/2016 Weight 59.42 kg
[2020-06-15 09:48] VITALS: BP 135/95; PULSE 76; RESP 18; TEMP 37; O2SAT 99
--- NOTE | 2020-06-15 10:04 | W.ED.GENAD ---
Discharge Plan Disposition Patient Disposition: HOME Condition: Good Discharge Details Clinical Impression: Closed rib fracture Primary Care Provider: Zeny James ED Provider: Sangeetha Garcia Home Meds and New Rx's Prescriptions: No Action calcium carbonate 650 mg calcium (1,625 mg) tablet 650 mg PO DAILY RF: 0 magnesium oxide 500 mg capsule 500 mg PO DAILY RF: 0 digestive enzymes Capsule 1 cap PO DAILY RF: 0 aspirin [Ecotrin Low Strength] 81 MG tablet,delayed release (DR/EC) 81 mg PO DAILY RF: 0 vitamin B complex [B-Complex] 1 EACH tablet 1 ea PO DAILY RF: 0 omega 0-hpx-kkt-fish oil [Fish Oil] 1,000 mg (120 mg-180 mg) capsule 1 cap PO DAILY RF: 0 fluticasone propion-salmeterol [Wixela Inhub] 500-50 mcg/dose blister with device 1 inh IH BID Qty: 60 RF: 4 fluticasone propionate [Flonase Allergy Relief] 50 mcg/actuation spray,suspension 2 spray TALIA DAILY PRNRF: 0 albuterol sulfate [ProAir HFA] 90 mcg/actuation HFA aerosol inhaler 2 puff INHALATION BID PRN (Reason: shortness of breath or wheezing) Qty: 18 RF: 4 (DME) OneTouch Ultra Blue Test Strip Strip See Rx Instructions .ROUTE .MEDSUPPLY Qty: 200 RF: 4 (DME) blood-glucose meter [OneTouch Ultra2 Meter] Misc See Rx Instructions .ROUTE .MEDSUPPLY Qty: 1 RF: 4 (DME) lancets [OneTouch Delica Lancets] 33 gauge misc See Rx Instructions .ROUTE .MEDSUPPLY Qty: 200 RF: 4 carvedilol 6.25 mg tablet 6.25 mg PO BID Qty: 180 RF: 4 pravastatin 20 mg tablet 20 mg PO DAILY Qty: 90 RF: 4 omeprazole 20 mg capsule,delayed release(DR/EC) 20 mg PO DAILY Qty: 90 RF: 4 vitamin E 400 unit Capsule 400 unit PO DAILY RF: 0 cholecalciferol (vitamin D3) [Vitamin D3] 1,000 unit Capsule 1,000 unit PO DAILY RF: 0 Centrum Silver Women 8 mg iron-400 mcg-300 mcg Tablet 1 tab PO DAILY RF: 0 Discharge Instructions Instructions: Rib Fracture (ED) Additional Instructions: Take Tylenol 650 mg to 1 g as needed for pain Make sure you are taking deep breaths, at least 6-8 deep inspiration and complete expirationz daily if you do not develop pneumonia Should you have abdominal pain or bruising, shortness of breath, fever, chills, or with any your complaints, recommend return for reevaluation Medical Decision Making Chest x-ray showed no evidence of pneumothorax, nondisplaced right sixth rib fracture, possible nondisplaced eighth rib fracture, patient is not hypoxic or tachypneic, she really looks quite well and is in no distress There is no indication for admission or additional testing at time of my evaluation I did discuss the need for 8 deep breath daily to prevent pneumonia She will take Tylenol as needed for pain She has additional opiate analgesia should she need it Return cautions discussed the patient expressed understanding, no evidence of intra-abdominal trauma, no pneumothorax visualized on my interpretation of chest x-ray or radiology is reviewed Given low threshold to return with new or worsening complaints Differential Diagnosis Differential Diagnosis: Pneumothorax, fracture, contusion, strain Medical Records Medical records reviewed: Yes I reviewed the patient's medical records. 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 She fell up 1 step, landing on her right side of her chest last evening. She states progressive mechanical fall she tripped. She denies any dizziness or weakness. Patient significantly worsen when she goes from supine to sitting position. Describes the pain as sharp. She states she has pain at time she questioned presents. With agreement of her nurse from recommended that she come in to be evaluated. She states her pain is a 3 or 4. She states it is worse with position and movement. She denies any shortness of breath, head injury, neck pain, abdominal pain, fever, chills, hemoptysis, or any additional complaints at this time. She denies any nausea or vomiting. She adamantly headache. General Date/Time Provider Initiated Documentation: 06/15/20 09:47. Related Data Home Medications Medication Instructions Recorded Confirmed aspirin [Ecotrin Low Strength] 81 mg PO DAILY tab-cap 11/21/12 05/04/20 vitamin B complex [B-Complex] 1 ea PO DAILY 01/28/13 05/04/20 Centrum Silver Women 1 tab PO DAILY 04/19/18 05/04/20 cholecalciferol (vitamin D3) 1,000 unit PO DAILY 04/19/18 05/04/20 [Vitamin D3] vitamin E 400 unit PO DAILY 04/19/18 05/04/20 omega 7-awl-gxc-fish oil 1,000 mg 1 cap PO DAILY cap 02/13/19 05/04/20 (120 mg-180 mg) capsule fluticasone 500 mcg-salmeterol 50 1 inh IH BID #60 each 05/02/19 05/04/20 mcg/dose blistr powdr for inhalation fluticasone propionate 50 2 spray TALIA DAILY PRN 05/02/19 05/04/20 mcg/actuation nasal spray,suspension calcium carbonate 650 mg calcium 650 mg PO DAILY 11/24/19 05/04/20 (1,625 mg) tablet magnesium oxide 500 mg capsule 500 mg PO DAILY 11/24/19 05/04/20 digestive enzymes 1 cap PO DAILY 12/12/19 05/04/20 albuterol sulfate 90 mcg/actuation 2 puff INHALATION BID PRN #18 g 01/10/20 05/04/20 aerosol inhaler blood sugar diagnostic #200 ea 04/20/20 05/04/20 blood-glucose meter #1 ea 04/20/20 05/04/20 lancets 33 gauge #200 ea 04/20/20 05/04/20 carvedilol 6.25 mg tablet 6.25 mg PO BID #180 tab 05/13/20 pravastatin 20 mg tablet 20 mg PO DAILY #90 tab 05/13/20 omeprazole 20 mg capsule,delayed 20 mg PO DAILY #90 cap 06/11/20 release Previous Rx's Medication Instructions Recorded fluticasone 500 mcg-salmeterol 50 1 inh IH BID #60 each 05/02/19 mcg/dose blistr powdr for inhalation albuterol sulfate 90 mcg/actuation 2 puff INHALATION BID PRN #18 g 01/10/20 aerosol inhaler blood sugar diagnostic #200 ea 04/20/20 blood-glucose meter #1 ea 04/20/20 lancets 33 gauge #200 ea 04/20/20 carvedilol 6.25 mg tablet 6.25 mg PO BID #180 tab 05/13/20 pravastatin 20 mg tablet 20 mg PO DAILY #90 tab 05/13/20 omeprazole 20 mg capsule,delayed 20 mg PO DAILY #90 cap 06/11/20 release Allergies Allergy/AdvReac Type Severity Reaction Status Date / Time house dust mite Allergy Asthma Verified 06/15/20 09:51 pollen extracts Allergy Asthma Verified 06/15/20 09:51 General Stated Complaint: Chest/Rib STEPHANIE: 4 Review of Systems Narrative: Review of systems negative x7 aside from where indicated in HPI [facility] Medical History Basal cell carcinoma Diverticulosis of colon Essential hypertension GERD (gastroesophageal reflux disease) Hyperlipidemia Intraductal papillary mucinous neoplasm of pancreas [place] [facility] [place] lobular carcinoma of left breast in female (~11/2019) [place] [facility] [place] lobular carcinoma of right breast in female (~2000) S/p chemo, radiation, mastectomy Osteopenia [place] [facility] [place]oporosis Fosamax x 10 yrs Pancreatic duct dilated Prediabetes Severe persistent asthma [facility] Pulmonology Vitamin D deficiency Surgical History H/O total mastectomy of left breast (12/20/19) History of esophagogastroduodenoscopy (EGD) (~2012) History of modified radical mastectomy of right breast (02/06/01) History of pancreatectomy (03/23/20) Whipple, pancreatectomy, partial gastrectomy with pancreaticojejunostomy History of tonsillectomy S/P colonoscopy (01/07/14) Family History Mother , age 76 Depression Hypertension Father , age 68 Heart disease Hyperlipidemia Alcohol abuse Hypertension Sister Hyperlipidemia Breast cancer In her 50s Brother Depression Heart disease Hyperlipidemia Stroke Substance abuse Alcohol abuse Hypertension Myocardial infarction Maternal Grandfather Stroke Maternal Grandmother No problems noted. Paternal Grandfather No problems noted. Paternal Grandmother , At 92 Osteoporosis Social History Smoking/Tobacco Use Status: Never Second Hand Exposure: Yes Smoking risk assessment performed?: Yes Alcohol Intake: current Alcohol Intake frequency: a few times a month Alcohol type: wine Drug use: Never Substance use type: does not use Caregiver/Support person: No Household members: none Housing: house Communication Needs: None Do you need help understanding health information?: Rarely Pets and animals: No Sexually active: No Do you think of yourself as: straight/heterosexual Current gender identity: female What is your relationship status?: How often do you talk on the phone with friends or family?: three or more times per week How often do you get together with friends or relatives?: twice per week How often do you attend sikh or buddhism services?: 4 or more times per year Do you belong to any clubs or organized social groups?: yes Panel score (0-1 are the most socially isolated patients): 3 What type of physical activity do you participate in: walking and other Details: Wellness @PT Duration: 45-60 minutes/day Frequency: 3-4 times per week Marti/Moravian: Amish Special marti needs: No Seatbelt use: always Helmet use: Yes Helmet use: sometimes Drive intox or ride w/intox van cdl driver: No Do you feel safe at home: Yes Do you feel safe in your relationship?: Yes History History 6 Para Hx # Term Pregnancies Multiple births Hx # Pregnancies Ectopic pregnancies AB induced Hx Number of Living Children AB spontaneous 6 Exam Const General: healthy appearing and comfortable [facility] Head: normal to inspection Eyes Pupils: PERRL Neck Other: No midline tenderness Chest Chest/axillae images: 1. Tenderness to palpation, no crepitus, no visible sign of trauma Resp Effort & Inspection: normal respiratory effort Auscultation: clear to auscultation bilaterally Cardio Rate: regular rate Rhythm: regular rhythm GI Inspection: normal to inspection Other: No right upper quadrant or flank tenderness, no visible sign of trauma, well-healing surgical sites Specifically no palpable or reproducible abdominal tenderness Back/Spine/Pelvis Other: No tenderness with palpation to the thoracic or lumbar regions, no pelvic tenderness Neuro General: patient alert and patient oriented x3 Cognition: normal cognition Speech: speech normal Other: GCS 15 Course Vital Signs Vital signs: Vital Signs Temperature 37.0 C 06/15/20 09:48 Pulse 76 06/15/20 09:48 Respiratory Rate 18 06/15/20 09:48 Blood Pressure 135/95 H 06/15/20 09:48 Pulse Oximetry 99 06/15/20 09:48 Temperature 37.0 C 06/15/20 09:48 Temperature Source Oral 06/15/20 09:48 Pulse 76 06/15/20 09:48 Respiratory Rate 18 06/15/20 09:48 Respiratory Effort Non-Labored 06/15/20 09:50 Blood Pressure 135/95 H 06/15/20 09:48 Blood Pressure Position Sitting 06/15/20 09:48 Pulse Oximetry 99 06/15/20 09:48 Oxygen Delivery Method Room Air 06/15/20 09:48 Oxygen Flow Rate 0 06/15/20 09:48 Pain Level 3 06/15/20 09:48
--- NOTE | 2020-06-15 10:28 | DI.RAD_ITS ---
EXAM: XR RIBS RT PA CHEST 3V CLINICAL HISTORY: right rib pain post fall on step, TECHNIQUE: 2D digital imaging was performed. COMPARISON: No exams were available for comparison FINDINGS: MEDIASTINUM: Normal. HEART: Normal. PULMONARY VASCULATURE: Normal. LUNGS: Clear. PLEURAL SPACE: No pleural effusion or pneumothorax. BONE:Normal. RIGHT RIBS: There is a nondisplaced fracture of the anterior lateral aspect of the right 6th rib. Th ere may also be a nondisplaced fracture of the anterolateral aspect of the right 8th rib. OTHER FINDINGS:Surgical clips are seen in the upper abdomen. IMPRESSION: 1. No acute pulmonary findings. 2. Nondisplaced fracture of the anterolateral aspect of the right 6th rib. Possible nondisplaced fra cture of the anterolateral aspect of the right 8th rib. No pneumothorax or pleural effusion. DATA REPOSITORY: RADIATION DOSE DELIVERED:
[2020-06-15 10:36] VITALS: BP 138/88; PULSE 76; RESP 18; O2SAT 96
== END 2020-06-15 11:16 | disposition home or self-care (01) ==
PROVIDERS: Emergency Provider Physician Assistant; PCP Nurse Practitioner Family
DX: S22.31XA Fracture of one rib, right side, initial encounter for closed fracture (principal); W10.8XXA Fall (on) (from) other stairs and steps, initial encounter
CPT/HCPCS: 99283; 71046; 71100

== ENCOUNTER 2020-11-20 01:31 | Outpatient (CLI) | payer MEDICARE, BC, SELFPAY ==
[2020-11-20 12:51] LABS: Abs Immature Grans 0.02 10^3/uL (0.0-0.06); Absolute Basophil Count 0.07 10^3/uL (0.0-0.2); Absolute Eosinophil Count 0.18 10^3/uL (0.0-0.7); Absolute Lymphocyte Count 1.38 10^3/uL (1.2-3.4); Absolute Neutrophil Count 4.82 10^3/uL (1.2-6.7); Eosinophils % 2.5; HCT 42.6 % (36.0-46.0); HGB 13.7 g/dL (11.2-15.7); Immature Grans % 0.3; MCHC 32.2 % (32.0-36.0); MCV 90.1 fL (80-95); Neutrophils % 66.2; Nucleated RBC 0 %; Platelet Count 324 10^3/uL (130-400); RBC 4.73 10^6/uL (3.93-5.22); RDW 13.5 % (11.7-14.6); RDW-SD 44.6 fL; WBC 7.27 10^3/uL (4.4-10.8)
[2020-11-20 13:08] LABS: ALT 110 U/L (14-59); AST 107 U/L (15-37); Albumin 3.9 g/dL (3.4-5.0); Alkaline Phosphatase 185 U/L (46-116); Anion Gap 7.6 mmol/L (3-11); BUN 12 mg/dL (7-18); Bilirubin, Total 0.5 mg/dL (0.2-1.0); CO2 30.4 mmol/L (21.0-32.0); CREATININE 0.6 mg/dL (0.55-1.02); Calcium 9.4 mg/dL (8.5-10.1); Chloride 104 mmol/L (98-107); Glucose 99 mg/dL (74-106); Potassium 5.1 mmol/L (3.5-5.1); Sodium 142 mmol/L (136-145); Total Protein 6.9 g/dL (6.4-8.2)
[2020-11-20 13:12] LABS: Hemoglobin A1C 6.6 % (<5.7)
[2020-11-24 10:17] LABS: Hepatitis A Antibody IgM Negative (Negative); Hepatitis B Core Antibody Negative (Negative); Hepatitis B surface Ag Negative (Negative); Hepatitis C Ab w Rflx HCV PCR Negative (Negative)
[2020-11-25 00:33] LABS: Free Retinol (Vitamin A) 49.9 mcg/dL (32.5-78.0)
== END 2020-11-20 01:32 | disposition home or self-care (01) ==
LOC: LOS 01:36
PROVIDERS: PCP Nurse Practitioner Family; Visit Provider Nurse Practitioner Family
DX: R73.03 Prediabetes (principal); D13.6 Benign neoplasm of pancreas; D69.2 Other nonthrombocytopenic purpura; R79.89 Other specified abnormal findings of blood chemistry
CPT/HCPCS: 36415; 80053; 86704; 86709; 86803; 87340; 83036; 84590; 85025

== ENCOUNTER 2020-12-17 16:43 | Outpatient (REF) | payer MEDICARE, BC, SELFPAY ==
[2020-12-17 15:44] LABS: ALT 50 U/L (14-59); AST 34 U/L (15-37); Albumin 3.6 g/dL (3.4-5.0); Alkaline Phosphatase 233 U/L (46-116); Anion Gap 9.1 mmol/L (3-11); BUN 12 mg/dL (7-18); Bilirubin, Total 0.3 mg/dL (0.2-1.0); CO2 28.9 mmol/L (21.0-32.0); CREATININE 0.6 mg/dL (0.55-1.02); Calcium 9.1 mg/dL (8.5-10.1); Chloride 97 mmol/L (98-107); Glucose 111 mg/dL (74-106); Potassium 4.4 mmol/L (3.5-5.1); Sodium 135 mmol/L (136-145); TSH (W/Ref FT4) 1.73 uIU/mL (0.36-3.74); Total Protein 6.6 g/dL (6.4-8.2)
== END 2020-12-17 16:44 | disposition home or self-care (01) ==
LOC: LBN 16:43
PROVIDERS: PCP Nurse Practitioner Family; Visit Provider Nurse Practitioner Family
DX: R53.83 Other fatigue (principal); R79.89 Other specified abnormal findings of blood chemistry
CPT/HCPCS: 80053; 84443

== ENCOUNTER 2020-12-25 02:22 | Outpatient (CLI) | payer MEDICARE, BC, SELFPAY ==
[2020-12-25 12:53] LABS: ALT 39 U/L (14-59); AST 27 U/L (15-37); Albumin 3.6 g/dL (3.4-5.0); Alkaline Phosphatase 194 U/L (46-116); Bilirubin, Total 0.5 mg/dL (0.2-1.0); GGT 111 U/L (5-55); Total Protein 6.6 g/dL (6.4-8.2)
[2020-12-25 13:02] LABS: Bilirubin, Direct 0.1 mg/dL (0.0-0.2)
[2020-12-28 11:48] LABS: Parathyroid Hormone,Intact 35 pg/mL (19-88)
== END 2020-12-25 02:23 | disposition home or self-care (01) ==
LOC: LOS 02:34
PROVIDERS: PCP Nurse Practitioner Family; Visit Provider Nurse Practitioner Family
DX: R74.8 Abnormal levels of other serum enzymes (principal)
CPT/HCPCS: 36415; 80076; 82977; 83970

== ENCOUNTER 2021-03-19 04:09 | Outpatient (CLI) | payer MEDICARE, BC, SELFPAY ==
[2021-03-19 12:48] LABS: Abs Immature Grans 0.02 10^3/uL (0.0-0.06); Absolute Basophil Count 0.06 10^3/uL (0.0-0.2); Absolute Eosinophil Count 0.18 10^3/uL (0.0-0.7); Absolute Lymphocyte Count 1.44 10^3/uL (1.2-3.4); Absolute Monocyte Count 0.84 10^3/uL (0.1-0.8); Absolute Neutrophil Count 5.98 10^3/uL (1.2-6.7); Basophils % 0.7; Eosinophils % 2.1; HCT 42.8 % (36.0-46.0); HGB 13.6 g/dL (11.2-15.7); Immature Grans % 0.2; Lymphocytes % 16.9; MCH 29.1 pg (27.0-33.0); MCHC 31.8 % (32.0-36.0); MCV 91.6 fL (80-95); MPV 10.9 fL (8.0-11.0); Monocytes % 9.9; Neutrophils % 70.2; Nucleated RBC 0 %; Platelet Count 355 10^3/uL (130-400); RBC 4.67 10^6/uL (3.93-5.22); RDW 13.6 % (11.7-14.6); RDW-SD 45.5 fL; WBC 8.52 10^3/uL (4.4-10.8)
[2021-03-19 13:06] LABS: Iron 124 ug/dL (50-170); Total Iron Binding Capacity 443 ug/dL (250-450); Transferrin Sat 28 % (15-50)
[2021-03-19 13:25] LABS: ALT 96 U/L (14-59); AST 72 U/L (15-37); Albumin 4.2 g/dL (3.4-5.0); Alkaline Phosphatase 259 U/L (46-116); Anion Gap 10.9 mmol/L (3-11); BUN 15 mg/dL (7-18); Bilirubin, Total 0.6 mg/dL (0.2-1.0); CO2 29.1 mmol/L (21.0-32.0); CREATININE 0.7 mg/dL (0.55-1.02); Calcium 9.5 mg/dL (8.5-10.1); Chloride 101 mmol/L (98-107); Ferritin 19 ng/mL (8-252); Glucose 120 mg/dL (74-106); Potassium 4.2 mmol/L (3.5-5.1); Sodium 141 mmol/L (136-145); Total Protein 7.1 g/dL (6.4-8.2); Vitamin B12 779 pg/mL (193-986)
[2021-03-22 00:28] LABS: Vitamin D 25 Total 30.1 ng/mL (30-100)
[2021-03-23 01:56] LABS: Vitamin E, Serum 14.2 mg/L (5.5 - 17.0)
== END 2021-03-19 04:10 | disposition home or self-care (01) ==
LOC: LOS 04:09
PROVIDERS: PCP Nurse Practitioner Family; Visit Provider Nurse Practitioner Family
DX: K86.89 Other specified diseases of pancreas; D50.8 Other iron deficiency anemias
CPT/HCPCS: 36415; 80053; 82306; 82607; 82728; 83540; 83550; 84446; 84590; 85025

== ENCOUNTER 2021-05-13 12:34 | Outpatient (CLI) | payer MEDICARE, BC, SELFPAY ==
[2021-05-13 11:38] LABS: ALT 73 U/L (14-59); AST 47 U/L (15-37); Alkaline Phosphatase 176 U/L (46-116); Anion Gap 6.3 mmol/L (3-11); BUN 8 mg/dL (7-18); Bilirubin, Total 0.5 mg/dL (0.2-1.0); CO2 31.7 mmol/L (21.0-32.0); CREATININE 0.6 mg/dL (0.55-1.02); Calcium 9.4 mg/dL (8.5-10.1); Chloride 97 mmol/L (98-107); Glucose 105 mg/dL (74-106); Potassium 4.1 mmol/L (3.5-5.1); Sodium 135 mmol/L (136-145); Total Protein 7.4 g/dL (6.4-8.2)
== END 2021-05-13 12:35 | disposition home or self-care (01) ==
LOC: LBO 12:42
PROVIDERS: PCP Nurse Practitioner Family; Visit Provider Internal Medicine Hematology & Oncology
DX: C50.412 Malignant neoplasm of upper-outer quadrant of left female breast (principal); Z17.0 Estrogen receptor positive status [ER+]
CPT/HCPCS: 36415; 80053

== ENCOUNTER 2021-11-11 03:07 | Outpatient (CLI) | payer MEDICARE, BC, SELFPAY ==
[2021-11-11 11:47] LABS: Hemoglobin A1C 6.3 % (<5.7)
[2021-11-11 11:54] LABS: ALT 82 U/L (14-59); AST 69 U/L (15-37); Albumin 3.7 g/dL (3.4-5.0); Alkaline Phosphatase 116 U/L (46-116); Anion Gap 5.6 mmol/L (3-11); BUN 19 mg/dL (7-18); Bilirubin, Total 0.5 mg/dL (0.2-1.0); CO2 30.4 mmol/L (21.0-32.0); CREATININE 0.6 mg/dL (0.55-1.02); Calcium 9.1 mg/dL (8.5-10.1); Chloride 97 mmol/L (98-107); Glucose 104 mg/dL (74-106); Potassium 4.4 mmol/L (3.5-5.1); Sodium 133 mmol/L (136-145); Total Protein 6.8 g/dL (6.4-8.2)
== END 2021-11-11 03:08 | disposition home or self-care (01) ==
LOC: LBO 03:07
PROVIDERS: PCP Nurse Practitioner Family; Visit Provider Internal Medicine Hematology & Oncology
DX: R73.03 Prediabetes (principal)
CPT/HCPCS: 36415; 80053; 83036

== ENCOUNTER 2021-11-23 17:48 | Outpatient (REF) | payer MEDICARE, BC, SELFPAY ==
[2021-11-23 20:56] LABS: Bilirubin Negative (Negative); Blood Negative (Negative); Clarity Sl Cloudy (Clear); Glucose Negative (Negative); Ketones Negative (Negative); Leukocyte Esterase Negative (Negative); Nitrite Positive (Negative); Specific Gravity <= 1.005 (1.005-1.025); Urobilinogen 0.2 EU/dL (Up TO 0.2)
[2021-11-23 21:11] LABS: Bacteria Rare HPF (Negative); C & S Indicated? Yes; Casts Negative LPF (Negative); Crystals Negative HPF (Negative); Epithelial Cells Rare HPF (Negative); Mucus Negative (Negative); RBC 0-2 HPF (0-2)
== END 2021-11-23 17:49 | disposition home or self-care (01) ==
LOC: LBN 17:48
PROVIDERS: PCP Nurse Practitioner Family; Visit Provider Physician Assistant
DX: R39.9 Unspecified symptoms and signs involving the genitourinary system (principal)
CPT/HCPCS: 81003; 81015; 87086

== ENCOUNTER 2022-04-11 17:54 | Emergency (ER) | payer MEDICARE, BC, SELFPAY ==
[2022-04-11 17:58] VITALS: BP 139/81; PULSE 96; RESP 16; TEMP 36.5; O2SAT 97
--- NOTE | 2022-04-11 18:15 | DI.RAD_ITS ---
Exam(s) XR PELVIS AP EXAM: XR PELVIS AP CLINICAL HISTORY: fall, buttock pain. TECHNIQUE: 2D digital imaging was performed. COMPARISON: CR XR PELVIS AP from 02/04/2019 FINDINGS: Single view: No evidence of hip fracture. However, there is a subtle irregularity of the inferior pubic ramus on the right side which is possibly a fracture site, not evident on the 2019 study. The appearance of t his may not be acute. There is an oval calcific density lateral to the greater trochanter of the right hip which is probabl y a buttock granuloma. IMPRESSION: Suspicion for fracture inferior pubic ramus medially on the right side, age indeterminate. However, this was not evident on prior x-ray of January 2019. DATA REPOSITORY: RADIATION DOSE DELIVERED:
--- NOTE | 2022-04-11 18:15 | DI.RAD_ITS ---
Exam(s) XR RIBS LT PA CHEST 3V EXAM: XR RIBS LT PA CHEST 3V CLINICAL HISTORY: fall, concern for left rib fractures. TECHNIQUE: 2D digital imaging was performed. COMPARISON: CR XR RIBS RT PA CHEST 3V from 06/15/2020 FINDINGS: There is a left 10th rib fracture evident on one view.. Minimal displacement. No other obvious rib fractures. Chest x-ray single-view colon no lung contusion or pneumothorax. Lungs are clear. Slight blunting o f left costophrenic angle noted. Heart size normal. Mediastinum is not widened. IMPRESSION: Subtle fracture of the left 10th rib. Small amount of left pleural fluid. No pneumothorax. No lung contusion. DATA REPOSITORY: RADIATION DOSE DELIVERED:
--- NOTE | 2022-04-11 18:15 | DI.RAD_ITS ---
Exam(s) XR COCCYX EXAM: XR COCCYX CLINICAL HISTORY: fall buttock pain. TECHNIQUE: 2D digital imaging was performed. COMPARISON: No exams were available for comparison FINDINGS: Two views: There is irregularity of the medial aspect of the inferior pubic ramus on the right side which has ap pearance of a fracture but not necessarily acute. Correlation with site of tenderness is recommended . No obvious sacral fracture evident on the lateral view. There is some degenerative anterolisthesis L 5 upon S1 and disc space narrowing at this level noted. IMPRESSION: Findings as above. Correlation with site of tenderness recommended. DATA REPOSITORY: RADIATION DOSE DELIVERED:
--- NOTE | 2022-04-11 18:24 | W.ED.GENAD ---
Discharge Plan Disposition Patient Disposition: Home Condition: Improving Discharge Details Clinical Impression: Fracture, ribs Primary Care Provider: Zeny James ED Provider: Isreal Carballo Home Meds and New Rx's Prescriptions: New lidocaine [Lidoderm] 5 % adhesive patch,medicated 1 patch topical DAILY Qty: 15 0RF Rx Instructions: leave on most painful area for up to 12 hrs cyclobenzaprine 5 mg tablet 5 mg PO HS PRN (Reason: muscle spasm) Qty: 7 0RF No Action calcium carbonate 650 mg calcium (1,625 mg) tablet 650 mg PO DAILY magnesium oxide 500 mg capsule 500 mg PO DAILY anastrozole 1 mg tablet 1 mg PO DAILY ferrous sulfate [iron] 325 mg (65 mg iron) tablet 325 mg PO Q OTHER DAY sennosides-docusate sodium 8.6-50 mg capsule 1 tab-cap PO QHS digestive enzymes Capsule 3 - 4 cap PO AC Rx Instructions: 3 tabs with meals and 1 tab with snacks Prolia 60 mg/mL syringe 60 mg subcut [id number] omeprazole 20 mg capsule,delayed release(DR/EC) 20 mg PO DAILY Qty: 90 3RF aspirin [Ecotrin Low Strength] 81 MG tablet,delayed release (DR/EC) 81 mg PO DAILY vitamin B complex [B-Complex] 1 EACH tablet 1 ea PO DAILY omega 5-shb-qob-fish oil [Fish Oil] 1,000 mg (120 mg-180 mg) capsule 1 cap PO DAILY albuterol sulfate [ProAir HFA] 90 mcg/actuation HFA aerosol inhaler 2 puff INHALATION BID PRN (Reason: shortness of breath or wheezing) Qty: 18 4RF pravastatin 20 mg tablet 20 mg PO DAILY Qty: 90 3RF fluticasone propion-salmeterol [Wixela Inhub] 500-50 mcg/dose blister with device 1 inh IH BID Qty: 60 4RF hydrochlorothiazide 12.5 mg tablet 12.5 mg PO DAILY Qty: 90 3RF vitamin E 400 unit Capsule 400 unit PO DAILY cholecalciferol (vitamin D3) [Vitamin D3] 1,000 unit Capsule 1,000 unit PO DAILY Centrum Silver Women 8 mg iron-400 mcg-300 mcg Tablet 1 tab PO DAILY Discharge Instructions Instructions: Rib Fracture (ED) Additional Instructions: Please follow-up closely with your primary care physician. Please use incentive spirometer as directed. Please return to the emergency department for any worsening symptoms. Medical Decision Making 76-year-old female presents 2 days after falling down 4 stairs slipped backwards on her buttock and left chest wall, ecchymosis to paraspinal thoracic region and ecchymosis to left buttock, pelvis is stable moving all extremities without deficits, alert oriented nontoxic, no head or neck trauma. No midline spinal tenderness. Patient is not on any blood thinners. Does have crackles left posterior lung daniel, concern for left rib fractures with possible hemothorax versus atelectasis versus early pneumonia. Low suspicion for pelvic fracture, must consider coccygeal fracture. Will obtain x-ray chest x-ray ribs x-ray pelvis and coccyx. Analgesia anti-inflammatory. Incentive spirometer disposition pending results 20: 21 patient resting comfortably no acute distress. The 10th and 11th left rib fractures. Pelvis showing irregularity of right pubic ramus, patient has no point tenderness in this region she does endorse a prior pelvis fracture from a remote fall. No bowel bladder incontinence or lower extremity sensory or motor changes to suggest spinal cord injury. Patient given incentive spirometer, will be given prescription for Lidoderm patch and cyclobenzaprine. Home care instructions and return precautions given HPI General Date/Time Provider Initiated Documentation: 04/11/22 18:07. HPI Narrative: 76-year-old female presents 2 days after slipping for stairs fell on her left side hitting her buttock area and left chest wall. Endorsing left chest wall and left buttock pain. Did not hit her head no loss of conscious no blood thinner use Related Data Home Medications Medication Instructions Recorded Confirmed aspirin 81 mg tablet,delayed 81 mg PO DAILY 11/21/12 04/11/22 release (Ecotrin Low Strength) vitamin B complex (B-Complex 1 ea PO DAILY 01/28/13 04/11/22 tablet) cholecalciferol (vitamin D3) 25 1,000 unit PO DAILY 04/19/18 04/11/22 mcg (1,000 unit) capsule (Vitamin D3) multivit with 1 tab PO DAILY 04/19/18 04/11/22 mjizsucc-xgdf-YM-lutein 8 mg iron-400 mcg-300 mcg tablet (Centrum Silver Women) vitamin E 268 mg (400 unit) capsule 400 unit PO DAILY 04/19/18 04/11/22 omega 7-sbb-ncv-fish oil 1,000 mg 1 cap PO DAILY 02/13/19 04/11/22 (120 mg-180 mg) capsule (Fish Oil) calcium carbonate 650 mg calcium 650 mg PO DAILY 11/24/19 04/11/22 (1,625 mg) tablet magnesium oxide 500 mg capsule 500 mg PO DAILY 11/24/19 04/11/22 albuterol sulfate 90 mcg/actuation 2 puff inhalation BID PRN 01/10/20 04/11/22 aerosol inhaler (ProAir HFA) shortness of breath or wheezing #18 grams anastrozole 1 mg tablet 1 mg PO DAILY 11/23/20 04/11/22 ferrous sulfate 325 mg (65 mg 325 mg PO Q OTHER DAY 11/23/20 04/11/22 iron) tablet (iron) sennosides 8.6 mg-docusate sodium 1 tab-cap PO QHS 11/23/20 04/11/22 50 mg capsule digestive enzymes 3 - 4 cap PO AC 11/25/20 04/11/22 pravastatin 20 mg tablet 20 mg PO DAILY #90 tabs 07/07/21 04/11/22 fluticasone 500 mcg-salmeterol 50 1 inh inhalation BID #60 ea 10/25/21 04/11/22 mcg/dose blistr powdr for inhalation (Wixela Inhub) denosumab 60 mg/mL subcutaneous 60 mg subcut [id number] 02/09/22 04/11/22 syringe (Prolia) omeprazole 20 mg capsule,delayed 20 mg PO DAILY #90 caps 02/09/22 04/11/22 release hydrochlorothiazide 12.5 mg tablet 12.5 mg PO DAILY #90 tabs 03/14/22 04/11/22 cyclobenzaprine 5 mg tablet 5 mg PO HS PRN muscle spasm #7 tabs 04/11/22 lidocaine 5 % topical patch 1 patch topical DAILY #15 ea 04/11/22 (Lidoderm) Previous Rx's Medication Instructions Recorded albuterol sulfate 90 mcg/actuation 2 puff inhalation BID PRN 01/10/20 aerosol inhaler (ProAir HFA) shortness of breath or wheezing #18 grams pravastatin 20 mg tablet 20 mg PO DAILY #90 tabs 07/07/21 fluticasone 500 mcg-salmeterol 50 1 inh inhalation BID #60 ea 10/25/21 mcg/dose blistr powdr for inhalation (Wixela Inhub) omeprazole 20 mg capsule,delayed 20 mg PO DAILY #90 caps 02/09/22 release hydrochlorothiazide 12.5 mg tablet 12.5 mg PO DAILY #90 tabs 03/14/22 cyclobenzaprine 5 mg tablet 5 mg PO HS PRN muscle spasm #7 tabs 04/11/22 lidocaine 5 % topical patch 1 patch topical DAILY #15 ea 04/11/22 (Lidoderm) Allergies Allergy/AdvReac Type Severity Reaction Status Date / Time house dust mite Allergy Asthma Verified 04/11/22 18:04 pollen extracts Allergy Asthma Verified 04/11/22 18:04 General Stated Complaint: Orthopedic STEPHANIE: 4 Review of Systems Narrative: Review of Systems Constitutional: negative Eyes: negative ENT: negative Cardiovascular: negative Respiratory: negative Gastrointestinal: negative : negative Musculoskeletal: Chest wall, buttock pain Skin: negative Neurologic: negative Psych: negative PFSH All Active Problems (Updated 04/11/22 @ 20:23 by Isreal Carballo MD) Fracture, ribs (Acute) History of bilateral breast cancer (Chronic) Right invasive lobular carcinoma in 2000 s/p chemo, radiation, mastectomy and left invasive lobular carcinoma in 2019 s/p total mastectomy Essential hypertension (Chronic) Hyperlipidemia (Chronic) Prediabetes (Chronic) Severe persistent asthma (Chronic) Followed by [facility] Pulmonology Osteopenia (Chronic) Dexa 2019 at [facility] [place] Abnormal LFTs (liver function tests) (Chronic) Likely secondary to Whipple per [facility] [place] GI GERD (gastroesophageal reflux disease) (Chronic) Medical History Basal cell carcinoma Right posterior calf 2020 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 Invasive lobular carcinoma of left breast in female (~11/2019) S/p total mastectomy Invasive lobular carcinoma of right breast in female (~2000) S/p chemo, radiation, mastectomy Osteoporosis Fosamax x 10 yrs Vitamin D deficiency Surgical History H/O total mastectomy of left breast (12/20/19) H/O Whipple procedure (03/23/20) Pancreatectomy, partial gastrectomy with pancreaticojejunostomy, cholecystectomy History of esophagogastroduodenoscopy (EGD) (~2012) History of modified radical mastectomy of right breast (02/06/01) History of pancreatectomy (03/23/20) Whipple, History of tonsillectomy S/P colonoscopy (01/07/14) Family History (Updated 02/09/22 @ 15:21 by Quinton Bae) Mother , age 76 Depression Hypertension Father , age 68 Heart disease Hyperlipidemia Alcohol abuse Hypertension Sister Hyperlipidemia Breast cancer In her 50s Brother Depression Heart disease Hyperlipidemia Stroke Substance abuse Alcohol abuse Hypertension Myocardial infarction Maternal Grandfather Stroke Maternal Grandmother No problems noted. Paternal Grandfather No problems noted. Paternal Grandmother , At 92 Osteoporosis Social History (Updated 02/09/22 @ 15:21 by Quinton Bae) Smoking/Tobacco Use Status: Never Second Hand Exposure: Yes Smoking risk assessment performed?: Yes Alcohol Intake: former Drug use: Never Substance use type: does not use Caregiver/Support person: No Household members: none Housing: house Communication Needs: None Do you need help understanding health information?: Rarely Pets and animals: No Sexually active: No Do you think of yourself as: straight/heterosexual Current gender identity: female What is your relationship status?: How often do you talk on the phone with friends or family?: three or more times per week How often do you get together with friends or relatives?: three or more times per week How often do you attend alevism or buddhism services?: 4 or more times per year Do you belong to any clubs or organized social groups?: yes Panel score (0-1 are the most socially isolated patients): 3 What type of physical activity do you participate in: walking Duration: 60-90 minutes/day Marti/Yarsani: Hinduism Special marti needs: No Seatbelt use: always Helmet use: Yes Helmet use: sometimes Drive intox or ride w/intox front loader residential driver: No Do you feel safe at home: Yes Do you feel safe in your relationship?: Yes History History 6 Para Hx # Term Pregnancies Multiple births Hx # Pregnancies Ectopic pregnancies AB induced Hx Number of Living Children AB spontaneous 6 Exam Narrative Exam Narrative: Physical Examination General: alert, awake, cooperative, resting comfortably, no acute distress HEENT: normocephalic, atraumatic; PERRL, EOM intact, conjunctiva normal; no nasal discharge; moist mucous membranes, oral and pharyngeal mucosa normal, tolerating secretions Neck: supple, trachea midline; full ROM Chest: normal to inspection Respiratory: normal respiratory effort, speaking in full sentences, crackles left lower lobe posteriorly Cardiac: regular rate, regular rhythm, S1S2 intact, no murmurs rubs or gallops GI: abdomen soft, non-tender, non-distended; no palpable mass or hepatosplenomegaly Back: No midline spinal tenderness, patient does have paraspinal ecchymosis in the lower thoracic region along posterior aspect of ribs Skin: Paraspinal left thoracic ecchymosis, ecchymosis to left buttock Neuro: AAOx3, normal speech, moving all extremities Extremities: Moving all extremities, pelvis stable Psych: Appropriate mood and affect Course Vital Signs Vital signs: Vital Signs Temperature 36.5 C 04/11/22 17:58 Pulse 96 H 04/11/22 17:58 Respiratory Rate 16 04/11/22 17:58 Blood Pressure 139/81 04/11/22 17:58 Pulse Oximetry 97 04/11/22 17:58 Temperature 36.5 C 04/11/22 17:58 Temperature Source Temporal Artery Scan 04/11/22 17:58 Pulse 96 H 04/11/22 17:58 Respiratory Rate 16 04/11/22 17:58 Respiratory Effort Non-Labored 04/11/22 18:01 Blood Pressure 139/81 04/11/22 17:58 Blood Pressure Position Sitting 04/11/22 17:58 Pulse Oximetry 97 04/11/22 17:58 Oxygen Delivery Method Room Air 04/11/22 17:58 Oxygen Flow Rate 0 04/11/22 17:58 Pain Level 5 04/11/22 18:01
--- NOTE | 2022-04-11 19:55 | DI.VRAD_ITS ---
PROCEDURE INFORMATION: Exam: XR Left Ribs with PA Chest Exam date and time: 04/11/2022 6:47 PM Age: 76 years old Clinical indication: Injury or trauma; Rib area, left side; Blunt trauma; Injury date: 04/09/22; Injury details: Fall, concern for L rib FX; Prior surgery; Surgery type: Mastectomy, whipple procedure; Patient HX: Fall, left sided pain TECHNIQUE: Imaging protocol: Radiologic exam of the Left ribs with PA chest. Views: 3 views COMPARISON: CR CHEST 2 VIEWS PA,LAT 10/04/2017 8:12 AM FINDINGS: Lungs: No consolidation. No significant collapse. No vascular congestion. Pleural spaces: No pneumothorax. Mild blunting noted at the left costophrenic angle. Heart/Mediastinum: Unremarkable. No cardiomegaly. Bones/joints: Fractures observed at the anterolateral left 10th and 11th ribs. Mild thoracolumbar scoliosis. Moderate arthropathy noted in the shoulders. IMPRESSION: 1. Fractures of the left 10th and 11th ribs. 2. Mild left pleural effusion. Dictated and Authenticated by: Raimundo Pal MD. Ordering:BALAJI Bach MD
--- NOTE | 2022-04-11 20:02 | DI.VRAD_ITS ---
PROCEDURE INFORMATION: Exam: XR Pelvis Exam date and time: 04/11/2022 6:54 PM Age: 76 years old Clinical indication: Injury or trauma; Blunt trauma (contusions or hematomas); Left; Pelvic region; Injury date: 04/09/22; Injury details: Fall buttock pain TECHNIQUE: Imaging protocol: Radiologic exam of the pelvis. Views: 1 or 2 view. COMPARISON: CT ABDOMEN PELVIS W 09/29/2019 11:55 PM FINDINGS: Bones/joints: Fractures are suspected in the right pubic bone, involving the superior and inferior pubic rami. The left pubic rami are intact. The acetabula are intact. The femoral necks are intact. The iliac crests are intact. Sacral arches are unremarkable. Soft tissues: Unremarkable. IMPRESSION: Suspect right pubic fractures. Dictated and Authenticated by: Raimundo Pal MD. Ordering:BALAJI Bach MD
--- NOTE | 2022-04-11 20:04 | DI.VRAD_ITS ---
PROCEDURE INFORMATION: Exam: XR Sacrum and Coccyx, 2 or More Views Exam date and time: 04/11/2022 6:57 PM Age: 76 years old Clinical indication: Injury or trauma; Blunt trauma (contusions or hematomas); Injury date: 04/09/22; Injury details: Fall, buttock pain TECHNIQUE: Imaging protocol: XR of the sacrum and coccyx, 2 or more views. COMPARISON: CR XR PELVIS AP 04/11/2022 6:54 PM FINDINGS: Bones/joints: Buckling of the cortex is observed in the sacrum at the S4 level. The coccyx appears appropriately aligned. Fractures are suspected in the right pubic bone, involving the superior and inferior pubic rami. Soft tissues: Unremarkable. IMPRESSION: 1. Possible fracture at S4. 2. Suspect fractures in the right pubis. Dictated and Authenticated by: Raimundo Pal MD. Ordering:BALAJI Bach MD
== END 2022-04-11 20:38 | disposition home or self-care (01) ==
PROVIDERS: Emergency Provider Emergency Medicine; PCP Nurse Practitioner Family
DX: S22.42XA Multiple fractures of ribs, left side, initial encounter for closed fracture (principal); E11.9 Type 2 diabetes mellitus without complications; Z79.82 Long term (current) use of aspirin; S30.0XXA Contusion of lower back and pelvis, initial encounter; W01.0XXA Fall on same level from slipping, tripping and stumbling without subsequent striking against object, initial encounter
CPT/HCPCS: 71101; 96372; 99284; 72170; 72220

== ENCOUNTER 2022-05-12 02:23 | Outpatient (CLI) | payer MEDICARE, BC, SELFPAY ==
[2022-05-12 11:21] LABS: ALT 119 U/L (14-59); AST 107 U/L (15-37); Albumin 4.1 g/dL (3.4-5.0); Alkaline Phosphatase 199 U/L (46-116); Anion Gap 8.4 mmol/L (3-11); BUN 20 mg/dL (7-18); Bilirubin, Total 0.5 mg/dL (0.2-1.0); CO2 27.6 mmol/L (21.0-32.0); CREATININE 0.7 mg/dL (0.55-1.02); Chloride 95 mmol/L (98-107); Estimated GFR 90.14 (mL/min/1.73m2); Glucose 87 mg/dL (74-106); Potassium 4.2 mmol/L (3.5-5.1); Sodium 131 mmol/L (136-145); Total Protein 7.1 g/dL (6.4-8.2)
== END 2022-05-12 02:24 | disposition home or self-care (01) ==
LOC: LBO 02:23
PROVIDERS: PCP Nurse Practitioner Family; Visit Provider Internal Medicine Hematology & Oncology
DX: D49.0 Neoplasm of unspecified behavior of digestive system (principal); R73.03 Prediabetes; R79.89 Other specified abnormal findings of blood chemistry; C50.912 Malignant neoplasm of unspecified site of left female breast; Z79.811 Long term (current) use of aromatase inhibitors; M85.89 Other specified disorders of bone density and structure, multiple sites
CPT/HCPCS: 36415; 80053; 83036

== ENCOUNTER 2022-06-17 01:22 | Outpatient (CLI) | payer MEDICARE, BC, SELFPAY ==
[2022-06-17 12:50] LABS: ALT 77 U/L (14-59); AST 56 U/L (15-37); Albumin 3.9 g/dL (3.4-5.0); Alkaline Phosphatase 143 U/L (46-116); Anion Gap 10.3 mmol/L (3-11); BUN 16 mg/dL (7-18); Bilirubin, Total 0.5 mg/dL (0.2-1.0); CO2 27.7 mmol/L (21.0-32.0); CREATININE 0.7 mg/dL (0.55-1.02); Calcium 8.6 mg/dL (8.5-10.1); Chloride 99 mmol/L (98-107); Estimated GFR 90.14 (mL/min/1.73m2); Glucose 127 mg/dL (74-106); Potassium 3.7 mmol/L (3.5-5.1); Sodium 137 mmol/L (136-145); Total Protein 7.1 g/dL (6.4-8.2)
== END 2022-06-17 01:23 | disposition home or self-care (01) ==
PROVIDERS: PCP Nurse Practitioner Family; Visit Provider Nurse Practitioner Family
DX: R79.89 Other specified abnormal findings of blood chemistry (principal); I10 Essential (primary) hypertension; E78.5 Hyperlipidemia, unspecified; R73.03 Prediabetes
CPT/HCPCS: 36415; 80053

== ENCOUNTER 2022-11-10 04:00 | Outpatient (CLI) | payer MEDICARE, BC, SELFPAY ==
[2022-11-10 09:01] LABS: ALT 89 U/L (14-59); AST 50 U/L (15-37); Albumin 3.8 g/dL (3.4-5.0); Alkaline Phosphatase 233 U/L (46-116); Anion Gap 5.9 mmol/L (3-11); BUN 23 mg/dL (7-18); Bilirubin, Total 0.5 mg/dL (0.2-1.0); CO2 31.1 mmol/L (21.0-32.0); CREATININE 0.8 mg/dL (0.55-1.02); Calcium 9.3 mg/dL (8.5-10.1); Chloride 101 mmol/L (98-107); Estimated GFR 76.31 (mL/min/1.73m2); Glucose 96 mg/dL (74-106); Potassium 4.6 mmol/L (3.5-5.1); Sodium 138 mmol/L (136-145); Total Protein 7.2 g/dL (6.4-8.2)
[2022-11-10 09:35] LABS: Calculated LDL 94 mg/dL (<100); Cholesterol 166 mg/dL (<200); HDL Cholesterol 57 mg/dL (40-60); Triglyceride 77 mg/dL (<150)
[2022-11-10 10:11] LABS: Hemoglobin A1C 5.9 % (<5.7)
== END 2022-11-10 04:01 | disposition home or self-care (01) ==
LOC: LBO 04:00
PROVIDERS: PCP Nurse Practitioner Family; Visit Provider Internal Medicine Hematology & Oncology
DX: E78.5 Hyperlipidemia, unspecified (principal); R73.03 Prediabetes; Z79.811 Long term (current) use of aromatase inhibitors; Z12.0 Encounter for screening for malignant neoplasm of stomach
CPT/HCPCS: 36415; 80053; 80061; 83036

== ENCOUNTER → 2022-12-22 02:11 | Outpatient (CLI) | payer MEDICARE, BC, SELFPAY ==
--- NOTE | 2022-12-22 | DI.DEXA_ITS ---
Exam(s) XR DEXA BONE DENSITY W/WO [place] EXAM: XR DEXA BONE DENSITY W/WO [place] CLINICAL HISTORY: LT BREAST CAMC50.412,Z17.0,OSTEOPENIA DUE TO DRUG THERAPY,M85.80,OTHER DISO TECHNIQUE: COMPARISON: No exams were available for comparison FINDINGS: Lateral Spine Image: Chronic anterior wedging deformities are seen in the thoracic spine. Left hip: Total T-Score: -2.1 Total Z-Score: -0.3 T- and Z-scores: Findings are consistent with osteopenia. There is osteoporosis in the femoral neck with a T-score of -2.6. Lumbar Spine: Total T-Score: -1.3 Total Z-Score: 1.1 T- and Z-scores: Findings are consistent with osteopenia. IMPRESSION: Osteoporosis in the left femoral neck.
== END ==
PROVIDERS: PCP Nurse Practitioner Family; Visit Provider Nurse Practitioner Family
DX: M85.88 Other specified disorders of bone density and structure, other site (principal); Z13.820 Encounter for screening for osteoporosis
CPT/HCPCS: 77080

== ENCOUNTER 2023-01-05 16:33 | Outpatient (REF) | payer MEDICARE, BC, SELFPAY ==
[2023-01-05 20:57] LABS: Bilirubin Negative (Negative); Blood Small (Negative); Clarity Clear (Clear); Glucose 100 mg/dL (Negative); Ketones Negative (Negative); Leukocyte Esterase Large (Negative); Nitrite Positive (Negative); Specific Gravity <= 1.005 (1.005-1.025)
[2023-01-05 21:02] LABS: Bacteria Few HPF (Negative); C & S Indicated? Yes; Casts Negative LPF (Negative); Crystals Negative HPF (Negative); Epithelial Cells Rare HPF (Negative); Mucus Negative (Negative); WBC >50 HPF (0-5)
== END 2023-01-05 16:34 | disposition home or self-care (01) ==
LOC: LBN 16:33
PROVIDERS: PCP Nurse Practitioner Family; Visit Provider Nurse Practitioner Family
DX: R35.0 Frequency of micturition (principal); R30.0 Dysuria; N39.0 Urinary tract infection, site not specified
CPT/HCPCS: 87077; 81003; 81015; 87086; 87186

== ENCOUNTER → 2023-01-20 09:42 | Outpatient (CLI) | payer MEDICARE, BC, SELFPAY ==
--- NOTE | 2023-01-20 08:00 | DI.RAD_ITS ---
Exam(s) XR CHEST 2V PA LATERAL EXAM: XR CHEST 2V PA LATERAL CLINICAL HISTORY: Cough, R05.9 TECHNIQUE: 2D digital imaging was performed. COMPARISON: CR XR RIBS RT PA CHEST 3V from 06/15/2020 CR,XR XR RIBS LT PA CHEST 3V from 04/11/2022 CR XR DEXA BONE DENSITY W/WO [place] from 12/22/2022 FINDINGS: HEART: Normal size. Aorta: Not dilated. PULMONARY VASCULATURE: Normal. LUNGS: Clear. PLEURAL SPACE: No pleural effusion or pneumothorax. BONE:Mild T5 and T10 compression fractures unchanged. IMPRESSION: No acute abnormality. DATA REPOSITORY: RADIATION DOSE DELIVERED:
== END ==
PROVIDERS: PCP Nurse Practitioner Family; Visit Provider Nurse Practitioner Family
DX: R05.9 Cough, unspecified (principal)
CPT/HCPCS: 71046

== ENCOUNTER 2023-02-10 11:09 | Day surgery (SDC) | payer MEDICARE, BC, SELFPAY ==
[2023-02-10] MEDS: Tropicam./Phenyleph. (1/2.5%) 5 ML BTL OS ×3 (12:04→12:14)
[2023-02-10 12:11] VITALS: BP 151/82; PULSE 72; RESP 16; TEMP 36.5; O2SAT 98
--- NOTE | 2023-02-10 12:21 | W.ANESPRE ---
General Info Date of Service Date Performed: 02/10/23 Height: 5 ft 1 in Weight: 48.3 kg Body Mass Index (BMI): 20.1 Surgical Procedure: Operation Date: 02/10/23 14:40 Proposed Procedure Side Surgeon p Cataract Extraction with IOL Implant Left Isreal Hall MD Meds Allergies and Home Medications Allergies Allergy/AdvReac Type Severity Reaction Status Date / Time house dust mite Allergy Asthma Verified 02/10/23 11:57 pollen extracts Allergy Asthma Verified 02/10/23 11:57 Home Medication Medication Instructions Recorded aspirin 81 mg tablet,delayed 81 mg PO DAILY 11/21/12 release (Ecotrin Low Strength) vitamin B complex (B-Complex 1 ea PO DAILY 01/28/13 tablet) yhyrwpxj-wjby-lkfy 8 mg-folic 400 1 tab PO DAILY 04/19/18 mcg-K 50 mcg-lutein 300 mcg tablet (Centrum Silver Women) vitamin E 268 mg (400 unit) capsule 400 unit PO DAILY 04/19/18 omega 0-vxh-pdj-fish oil 1,000 mg 1 cap PO DAILY 02/13/19 (120 mg-180 mg) capsule (Fish Oil) magnesium oxide 500 mg capsule 500 mg PO DAILY 11/24/19 anastrozole 1 mg tablet 1 mg PO DAILY 11/23/20 sennosides 8.6 mg-docusate sodium 1 tab-cap PO QHS 11/23/20 50 mg capsule digestive enzymes 3 - 4 cap PO AC 11/25/20 denosumab 60 mg/mL subcutaneous 60 mg subcut [id number] 02/09/22 syringe (Prolia) albuterol sulfate 90 mcg/actuation 2 puff inhalation BID PRN 06/08/22 aerosol inhaler (ProAir HFA) shortness of breath or wheezing #18 grams pravastatin 20 mg tablet 20 mg PO DAILY #90 tabs 07/06/22 fluticasone 500 mcg-salmeterol 50 1 inh inhalation BID #60 ea 12/07/22 mcg/dose blistr powdr for inhalation (Wixela Inhub) omeprazole 20 mg capsule,delayed 20 mg PO DAILY #90 caps 12/28/22 release calcium cmb no.1-vit C5-N5-BM-B12 1 tab PO DAILY 01/13/23 120 mg-1,000 unit-10 mg tablet cholecalciferol (vitamin D3) 25 25 mcg PO DAILY 01/13/23 mcg (1,000 unit) capsule ferrous sulfate 325 mg (65 mg 325 mg PO .3x/week 01/13/23 iron) tablet (iron) Current Visit Medications: Current Medications Generic Name Dose Route Start Last Admin Trade Name Freq PRN Reason Stop Dose Admin Acetaminophen 1,000 mg 02/10/23 06:00 Acetaminophen 500 Mg Tab PO 03/12/23 05:59 Q4H PRN PRN Balanced Salt Solution 500 ml 02/10/23 06:00 Balanced Salt Soln.-Plus 500 Ml Bag OP 03/12/23 05:59 DIRECTED LUZ Miscellaneous Medication 0 ml 02/10/23 06:00 Prednisolone 1%, Moxifloxacin 0.5%, Nepafenac 0.1% 5ml Btl OS 03/12/23 05:59 DIRECTED LUZ Miscellaneous Medication 0 ml 02/10/23 06:00 02/10/23 12:14 Tropicam./Phenyleph. 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 denies she is diabetic Invasive lobular carcinoma of right breast in female (~2000) S/p chemo, radiation, mastectomy Invasive lobular carcinoma of left breast in female (~11/2019) S/p total mastectomy Basal cell carcinoma Right posterior calf 2020 Vitamin D deficiency Osteoporosis Fosamax x 10 yrs Surgical History Surgical History Hx of cataract removal with insertion of prosthetic lens H/O Whipple procedure (03/23/20) Pancreatectomy, partial gastrectomy with pancreaticojejunostomy, cholecystectomy History of pancreatectomy (03/23/20) Whipple, H/O total mastectomy of left breast (12/20/19) History of esophagogastroduodenoscopy (EGD) (~2012) History of modified radical mastectomy of right breast (02/06/01) S/P colonoscopy (01/07/14) History of tonsillectomy Tobacco Smoking/Tobacco Use Status: Never Passive smoking exposure: Yes Second hand exposure: Yes Alcohol Alcohol Intake: former Substance Use Substance use: Never Substance use type: does not use Prental History History 6 Para Hx # Term Pregnancies Multiple births Hx # Pregnancies Ectopic pregnancies AB induced Hx Number of Living Children AB spontaneous 6 Vital Signs and Lab Results Vital Signs Most Recent Vital Signs in EMR: Most Recent Vital Signs Temp Pulse Resp BP Pulse Ox 36.5 C 72 16 151/82 H 98 02/10/23 12:11 02/10/23 12:11 02/10/23 12:11 02/10/23 12:11 02/10/23 12:11 Lab Results Blood Type / Crossmatch: No Data to Display Complete Blood Count: No Data to Display Complete Metabolic Panel: No Data to Display Liver Function Panel: No Data to Display Coagulation Panel: No Data to Display Cardiac Panel: No Data to Display Arterial Blood Gas: No Data to Display Venous Blood Gas: No Data to Display Pancreas Panel: No Data to Display Thyroid Panel: No Data to Display Infectious Disease: No Data to Display Blood Cultures: No Data to Display Toxicology Panel: No Data to Display Imaging and Studies Imaging and Studies Study information below may be from another EMR and interpreted by another provider. Please see original notes in EMR for more complete details. Stress Test Summary: Date of study: 11/23/2018 *PATIENT PRESENTATION* Height: 157.5cm (62in) Blood Pressure: Weight: 54.5kg (120lb) BSA: 1.55m^2 Ordering physician: Ranjit Fischer Impressions: Normal study after maximal exercise. Echocardiogram Summary: Date of study: 12/11/2018 Transthoracic Echocardiography M-mode, complete 2D, complete spectral Doppler, and color Doppler *STUDY CONCLUSIONS* Summary: 1. Left ventricle: The cavity size was normal. Wall thickness was normal. Systolic function was normal. The estimated ejection fraction was 60-65%. Wall motion was normal; there were no regional wall motion abnormalities. 2. Right ventricle: The cavity size was normal. Systolic function was normal. 3. Left atrium: The atrium was mildly dilated. 4. Inferior vena cava: The vessel was patent and normal in size. The respirophasic diameter changes were in the normal range (greater than or equal to 50%), consistent with normal central venous pressure. Pulmonary Function Summary: DATE OF SERVICE December 07, 2018 REQUESTING PROVIDER Ranjit Fischer M.D. INTERPRETATION OF STUDY Spirometry shows severe obstructive airways disease with significant bronchodilator response.. LUNG VOLUMES - Lung volumes show no evidence of restriction. DIFFUSION CAPACITY- Mildly reduced, which is normal when corrected to alveolar volume. AIRWAY RESISTANCE - Elevated. IMPRESSION Severe obstructive airways disease with significant bronchodilator response. This is associated with mild diffusion defect. Clinical correlation recommended. Anesthesia Assessment and Plan Anesthesia History Personal History: No History of Anesthesia Complications Family History: No Family History of Anesthesia Complications Exercise Tolerance Exercise Tolerance: Metabolic Equivalents>4 Pertinent Negatives Pertinent Negatives: No Symptoms of GERD and No Major Cardiovascular Symptoms or Complaints Cardiac & Pulmonary Exam Cardiac Exam: Normal S1/S2 Heart Sounds Pulmonary Exam: Clear Bilateral Breath Sounds Implantable Cardiac Device Does patient have a Pacemaker or an ICD?: No Airway Exam Known Difficult Airway: No Mallampati Class: 1 Mouth Opening: Normal (> 3cm) Thyromental Distance: Greater than 3 cm Neck Range of Motion: Full ROM Neck Circumference: Normal Teeth Condition: Normal Dentition ASA Classification ASA Score: ASA 3 Emergency Case?: No NPO Status NPO Status: NPO Clears >2 hours, Solids >8 hours Anesthesia Plan Resuscitation Status: Full Code Anesthesia Technique: MAC Anesthesia Airway Planned: Natural Airway Monitors Used: Standard Monitors
[2023-02-10 12:23] VITALS: BMI 20.1
[2023-02-10] MEDS: Balanced Salt Soln.-PLUS 500 ML BAG OP (13:14)
[2023-02-10] MEDS: Lidocaine 1% Pres-Free 5 ML VIAL (13:15)
[2023-02-10] MEDS: Tetracaine 0.5% 4 ML BTL OS (13:15)
[2023-02-10] MEDS: Duovisc Viscoelastic System EACH 1 EACH (13:16)
[2023-02-10] MEDS: Phenylephrine/Lidocaine (15/10) MG/ML 1 ML VIAL (13:16)
[2023-02-10] MEDS: Povidone-Iodine Ophth 30 ML BTL (13:17)
[2023-02-10 13:40] VITALS: BP 121/74; PULSE 77; RESP 16; TEMP 36.5; O2SAT 96
--- NOTE | 2023-02-10 13:40 | W.PM.DSUDISC ---
Date of service: 02/10/23 Time of Service: 13:40 Discharge Plan Disposition Patient Disposition: Home Discharge Details Attending Provider: Isreal Hall Primary Care Provider: Zeny James Home Meds and New Rx's Prescriptions: No Action albuterol sulfate [ProAir HFA] 90 mcg/actuation HFA aerosol inhaler 2 puff INHALATION BID PRN (Reason: shortness of breath or wheezing) Qty: 18 4RF magnesium oxide 500 mg capsule 500 mg PO DAILY anastrozole 1 mg tablet 1 mg PO DAILY sennosides-docusate sodium 8.6-50 mg capsule 1 tab-cap PO QHS digestive enzymes Capsule 3 - 4 cap PO AC Rx Instructions: 3 tabs with meals and 1 tab with snacks ferrous sulfate [iron] 325 mg (65 mg iron) tablet 325 mg PO .3x/week Prolia 60 mg/mL syringe 60 mg subcut [id number] cholecalciferol (vitamin D3) 25 mcg (1,000 unit) capsule 25 mcg PO DAILY Ca cmb no.1-vit [id number]-[id number]-B12 120-1,000-10 mg-unit-mg tablet 1 tab PO DAILY aspirin [Ecotrin Low Strength] 81 MG tablet,delayed release (DR/EC) 81 mg PO DAILY vitamin B complex [B-Complex] 1 EACH tablet 1 ea PO DAILY omega 1-vll-cpi-fish oil [Fish Oil] 1,000 mg (120 mg-180 mg) capsule 1 cap PO DAILY pravastatin 20 mg tablet 20 mg PO DAILY Qty: 90 3RF fluticasone propion-salmeterol [Wixela Inhub] 500-50 mcg/dose blister with device 1 inh IH BID Qty: 60 4RF omeprazole 20 mg capsule,delayed release(DR/EC) 20 mg PO DAILY Qty: 90 3RF vitamin E 400 unit Capsule 400 unit PO DAILY Centrum Silver Women 8 mg iron-400 mcg-300 mcg Tablet 1 tab PO DAILY Discharge Instructions Stand Alone Forms: Post-op Topical Cataract, Press Ganey (DSU) Discharge Orders Discharge Orders: Discharge Order (Routine); Ordered 02/10/23 Ordered By: Isreal Hall DS: Diagnosis Discharge Diagnosis (1) Cortical age-related cataract, left eye: Status: Resolved (2) Nuclear age-related cataract, left eye: Status: Resolved
--- NOTE | 2023-02-10 13:41 | ROE_ITS ---
Date of service: 02/10/23 Time of Service: 13:41 Operative Note Operative Note DATE OF PROCEDURE: 02/10/23 PRE-OP DIAGNOSIS: Nuclear/cortical cataract, left eye POST-OP DIAGNOSIS: same PROCEDURE: Cataract extraction using phacoemulsification with intraocular lens implant, left eye SURGEON: Isreal Hall ANESTHESIA TYPE: Local By Surgeon and MAC Refer to Anesthesia Record PATHOLOGY: none sent COMPLICATIONS: None Patient was transported to: same day Patient's condition: stable Implants: Gelacio Clareon [id number] Indications: Progressive decreased vision due to cataract, left eye Procedure Description: CATARACT SURGERY OPERATIVE REPORT PREOPERATIVE DIAGNOSIS: Nuclear/cortical cataract, left eye POSTOPERATIVE DIAGNOSIS: Same OPERATION: Cataract extraction using phacoemulsification with posterior chamber intraocular lens implant, left eye. IOL: IOL Injection Molding Supervisor/Model: Gelacio Clareon [id number] IOL Power: + 19.5 diopters IOL Serial Number: [id number] Optic Diameter: 6.0mm Haptic/Overall Diameter: 13.0mm PHACO INFO: Gelacio Healios K.Kurion Vision System with OZil and Active Fluidics Cumulative Dispersed Energy (CDE): 17.59 seconds SURGEON: Isreal Hall MD, CHICA ANESTHESIA: Monitored Anesthesia Care (MAC), with local sub-tenon's anesthetic infiltration COMPLICATIONS: None SPECIMENS: None INDICATIONS FOR PROCEDURE: The patient is a 77-year-old lady with history of diminished visual acuity in her left eye secondary to the development of nuclear/cortical cataract. She has previously undergone cataract surgery in the right eye in 2019 and is doing well postoperatively. She now presents for cataract surgery in the left eye. PROCEDURE: The correct surgical eye was identified and marked as the left eye and the pupil was dilated in the preoperative area using mydriatics and cycloplegics. The dilated pupil size was 7.0 mm. Oral sedation was administered in the form of an Imprimis MKO Melt (midazolam 3mg/ketamine 25mg/ondansetron 2mg). The patient was brought to the operating room where cardiopulmonary monitoring was instituted and surgical time-out was performed, confirming the correct operative eye and IOL power. Topical anesthesia was administered and ophthalmic povidone-iodine 5% was instilled into the conjunctival fornices. The yasmine-ocular area was prepped with Betadine 10% solution and draped in the usual sterile fashion for intraocular surgery, including an aperture drape. A Tegaderm transparent film dressing was cut in half and used to cover the lashes and lid margins. Care was taken to sequester the lashes and lid margins under the Tegaderm dressing. A lid speculum was placed between the lids of the operative eye and the Gelacio LuxOR Revalia operating microscope was maneuvered into position. Gabriel scissors were then used to make a conjunctival buttonhole approximately 6mm posterior to the limbus in the inferonasal quadrant. Blunt dissection was carried out to expose bare sclera, and a blunt-tipped sub-tenon?s anesthesia cannula was introduced and passed posteriorly along the globe where non- preserved plain lidocaine was injected into posterior sub-Tenon?s space. A sideport knife was used to make a paracentesis port. Intraocular phenylephrine/lidocaine was injected into the anterior chamber. The anterior chamber was then filled with viscoelastic. A keratome knife was used construct a two-plane clear corneal tunnel extending 2.0mm into clear c ornea. A flap was raised on the anterior capsule and capsulorhexis forceps were used to complete a continuous curvilinear capsulorhexis of 5.0 mm. Balanced salt solution was then used to perform cortical cleaving hydrodissection and nuclear hydrodelineation until the lens could be freely rotated within the capsular bag. The lens nucleus was then disassembled and removed within the capsular bag and iris plane using phacoemulsification. Residual cortical material was removed using the irrigation/aspiration handpiece. The posterior capsule was carefully polished to remove as much residual lens epithelial cells as safely possible. The capsular bag was then inflated and the anterior chamber deepened with viscoelastic. The lens implant described above was inserted into the capsular bag using the Gelacio Autonome Injector. A Kuglen hook was used to dial the IOL into position. Residual viscoelastic was then removed first from posterior to the IOL, then from the anterior chamber using the I/A handpiece. The lens implant was noted to center nicely within the capsular bag. The incisions were stromally hydrated, and the anterior chamber was reformed using BSS. Then 0.5cc of moxifloxacin 1.0mg/ml were injected into the capsular bag and anterior chamber. The incisions were checked with a Weck spear and found to be secure. Several drops of ophthalmic povidone-iodine 5% were then applied to the eye followed by two drops of Imprimis combination prednisolone/moxifloxacin/nepafenac solution. The drapes were removed and a clear plastic protective eye shield was placed over the eye. The patient was then returned to Same Day Surgery in stable condition.
[2023-02-10 14:07] VITALS: BP 123/84; PULSE 79; RESP 16; TEMP 36.7; O2SAT 95
--- NOTE | 2023-02-10 14:17 | W.ANESPOSTOP ---
Postoperative Evaluation Date, Time and Location Date Performed: 02/10/23 Time Performed: 14:00 Patient Location: Day Surgery Unit Vital Signs Most Recent Imported Vital Signs: Most Recent Vital Signs Temp Pulse Resp BP Pulse Ox 36.5 C 77 16 121/74 96 02/10/23 13:40 02/10/23 13:40 02/10/23 13:40 02/10/23 13:40 02/10/23 13:40 Pain Score Most Recent Pain Score: Most Recent Pain Score Pain Level 0 02/10/23 13:40 Assessment Mental Status: Awake (Alert & Oriented to Patient Baseline) Airway and Respiratory Function: Patent airway with normal (patient baseline) respiratory exam Cardiovascular Function: Hemodynamically Stable Hydration Status: Adequately Hydrated Nausea & Vomiting: No Nausea or Vomiting Pain: Pt. Denies Any Pain Peripheral Nerve Block: Patient did not receive a nerve block
== END 2023-02-10 14:29 | disposition home or self-care (01) ==
PROVIDERS: PCP Nurse Practitioner Family; Visit Provider Ophthalmology
PROC: (CPT 66984; principal; 2023-02-10 14:30)
DX: H25.012 Cortical age-related cataract, left eye (principal); H25.12 Age-related nuclear cataract, left eye; K21.9 Gastro-esophageal reflux disease without esophagitis; I10 Essential (primary) hypertension; J45.50 Severe persistent asthma, uncomplicated; Z98.41 Cataract extraction status, right eye
CPT/HCPCS: 66984; 00123; V2632

== ENCOUNTER 2023-05-04 04:14 | Outpatient (CLI) | payer MEDICARE, BC, SELFPAY ==
[2023-05-04 09:25] LABS: ALT 76 U/L (14-59); AST 42 U/L (15-37); Albumin 4.1 g/dL (3.4-5.0); Alkaline Phosphatase 115 U/L (46-116); Anion Gap 7.1 mmol/L (3-11); BUN 15 mg/dL (7-18); Bilirubin, Total 0.7 mg/dL (0.2-1.0); CO2 27.9 mmol/L (21.0-32.0); CREATININE 0.7 mg/dL (0.55-1.02); Calcium 9.3 mg/dL (8.5-10.1); Chloride 99 mmol/L (98-107); Estimated GFR 89.58 (mL/min/1.73m2); Glucose 104 mg/dL (74-106); Potassium 4.7 mmol/L (3.5-5.1); Sodium 134 mmol/L (136-145); Total Protein 7.5 g/dL (6.4-8.2)
== END 2023-05-04 04:15 | disposition home or self-care (01) ==
LOC: LBO 04:14
PROVIDERS: PCP Nurse Practitioner Family; Visit Provider Nurse Practitioner Family
DX: C50.912 Malignant neoplasm of unspecified site of left female breast (principal); Z17.0 Estrogen receptor positive status [ER+]; Z79.899 Other long term (current) drug therapy; M85.89 Other specified disorders of bone density and structure, multiple sites
CPT/HCPCS: 36415; 80053

== ENCOUNTER 2023-07-03 08:07 | Emergency (ER) | payer MEDICARE, BC, SELFPAY ==
[2023-07-03 08:13] VITALS: BP 168/74; PULSE 76; RESP 17; TEMP 36.8; O2SAT 98
--- NOTE | 2023-07-03 08:15 | DI.RAD_ITS ---
Exam(s) XR ANKLE LT COMPLETE EXAM: XR ANKLE LT COMPLETE CLINICAL HISTORY: rolled ankle. TECHNIQUE: 2D digital imaging was performed. COMPARISON: No exams were available for comparison FINDINGS: 3 views No evidence of malleolar fracture or widening of the ankle mortise. Talar dome unremarkable. No pro minent soft tissue swelling. However, there appears to be a transverse fracture at the base of the 5 th metatarsal. IMPRESSION: There is a nondisplaced fracture at the base of the 5th metatarsal. DATA REPOSITORY: RADIATION DOSE DELIVERED:
--- NOTE | 2023-07-03 08:15 | DI.RAD_ITS ---
Exam(s) XR FOOT LT COMPLETE EXAM: XR FOOT LT COMPLETE CLINICAL HISTORY: rolled foot, ecchymosis pain wendy lat metatarsals. TECHNIQUE: 2D digital imaging was performed. COMPARISON: CR XR ANKLE LT COMPLETE from 07/03/2023 FINDINGS: 3 views There is a very subtle nondisplaced transverse fracture of the base of the 5th metatarsal. No other fractures identified. No widening of the Lisfranc joint. No significant degenerative changes. No p es planus. Small moderate size inferior calcaneal spur noted. IMPRESSION: Nondisplaced subtle transverse fracture of the base of the 5th metatarsal. DATA REPOSITORY: RADIATION DOSE DELIVERED:
--- NOTE | 2023-07-03 08:23 | W.ED.GENAD ---
Discharge Plan Disposition Patient Disposition: Home Condition: Stable Discharge Details Chief Complaint: Orthopedic Clinical Impression: Closed fracture of fifth metatarsal bone Primary Care Provider: Zeny James ED Provider: Isreal Carballo Home Meds and New Rx's Prescriptions: No Action albuterol sulfate [ProAir HFA] 90 mcg/actuation HFA aerosol inhaler 2 puff INHALATION BID PRN (Reason: shortness of breath or wheezing) Qty: 18 4RF magnesium oxide 500 mg capsule 500 mg PO DAILY anastrozole 1 mg tablet 1 mg PO DAILY sennosides-docusate sodium 8.6-50 mg capsule 1 tab-cap PO QHS digestive enzymes Capsule 3 - 4 cap PO AC Rx Instructions: 3 tabs with meals and 1 tab with snacks ferrous sulfate [iron] 325 mg (65 mg iron) tablet 325 mg PO .3x/week Prolia 60 mg/mL syringe 60 mg subcut [id number] cholecalciferol (vitamin D3) 50 mcg (2,000 unit) capsule 50 mcg PO DAILY Ca cmb no.1-vit F4-B2-YU-B12 120-1,000-10 mg-unit-mg tablet 1 tab PO DAILY aspirin [Ecotrin Low Strength] 81 MG tablet,delayed release (DR/EC) 81 mg PO DAILY vitamin B complex [B-Complex] 1 EACH tablet 1 ea PO DAILY omega 1-tpc-krg-fish oil [Fish Oil] 1,000 mg (120 mg-180 mg) capsule 1 cap PO DAILY pravastatin 20 mg tablet 20 mg PO DAILY Qty: 90 3RF fluticasone propion-salmeterol [Wixela Inhub] 500-50 mcg/dose blister with device 1 inh IH BID Qty: 60 4RF omeprazole 20 mg capsule,delayed release(DR/EC) 20 mg PO DAILY Qty: 90 3RF vitamin E 400 unit Capsule 400 unit PO DAILY Centrum Silver Women 8 mg iron-400 mcg-300 mcg Tablet 1 tab PO DAILY Discharge Instructions Instructions: Foot Fracture in Adults (ED) Additional Instructions: Please follow-up with orthopedic clinic when you return from your trip HPI General Date/Time Provider Initiated Documentation: 07/03/23 08:17. HPI Narrative: 77-year-old female presents after rolling her ankle and foot yesterday, pain to top and lateral aspect of her left foot, is able to to walk with some discomfort. Has been icing at home. No knee injury no hip injury no other trauma Related Data Home Medications Medication Instructions Recorded Confirmed aspirin 81 mg tablet,delayed 81 mg PO DAILY 11/21/12 07/03/23 release (Ecotrin Low Strength) vitamin B complex (B-Complex 1 ea PO DAILY 01/28/13 07/03/23 tablet) btxlgrng-owtg-boda 8 mg-folic 400 1 tab PO DAILY 04/19/18 07/03/23 mcg-K 50 mcg-lutein 300 mcg tablet (Centrum Silver Women) vitamin E 268 mg (400 unit) capsule 400 unit PO DAILY 04/19/18 07/03/23 omega 7-giw-hgu-fish oil 1,000 mg 1 cap PO DAILY 02/13/19 07/03/23 (120 mg-180 mg) capsule (Fish Oil) magnesium oxide 500 mg capsule 500 mg PO DAILY 11/24/19 07/03/23 anastrozole 1 mg tablet 1 mg PO DAILY 11/23/20 07/03/23 sennosides 8.6 mg-docusate sodium 1 tab-cap PO QHS 11/23/20 07/03/23 50 mg capsule digestive enzymes 3 - 4 cap PO AC 11/25/20 07/03/23 denosumab 60 mg/mL subcutaneous 60 mg subcut [id number] 02/09/22 07/03/23 syringe (Prolia) albuterol sulfate 90 mcg/actuation 2 puff inhalation BID PRN 06/08/22 07/03/23 aerosol inhaler (ProAir HFA) shortness of breath or wheezing #18 grams pravastatin 20 mg tablet 20 mg PO DAILY #90 tabs 07/06/22 07/03/23 fluticasone 500 mcg-salmeterol 50 1 inh inhalation BID #60 ea 12/07/22 07/03/23 mcg/dose blistr powdr for inhalation (Wixela Inhub) omeprazole 20 mg capsule,delayed 20 mg PO DAILY #90 caps 12/28/22 07/03/23 release calcium cmb no.1-vit P9-C0-BY-B12 1 tab PO DAILY 01/13/23 07/03/23 120 mg-1,000 unit-10 mg tablet ferrous sulfate 325 mg (65 mg 325 mg PO .3x/week 01/13/23 07/03/23 iron) tablet (iron) cholecalciferol (vitamin D3) 50 50 mcg PO DAILY 02/16/23 07/03/23 mcg (2,000 unit) capsule Previous Rx's Medication Instructions Recorded albuterol sulfate 90 mcg/actuation 2 puff inhalation BID PRN 06/08/22 aerosol inhaler (ProAir HFA) shortness of breath or wheezing #18 grams pravastatin 20 mg tablet 20 mg PO DAILY #90 tabs 07/06/22 fluticasone 500 mcg-salmeterol 50 1 inh inhalation BID #60 ea 12/07/22 mcg/dose blistr powdr for inhalation (Wixela Inhub) omeprazole 20 mg capsule,delayed 20 mg PO DAILY #90 caps 12/28/22 release Allergies Allergy/AdvReac Type Severity Reaction Status Date / Time house dust mite Allergy Asthma Verified 07/03/23 08:16 pollen extracts Allergy Asthma Verified 07/03/23 08:16 General Stated Complaint: Orthopedic STEPHANIE: 4 Review of Systems Narrative: Review of Systems Constitutional: negative Eyes: negative ENT: negative Cardiovascular: negative Respiratory: negative Gastrointestinal: negative : negative Musculoskeletal: Foot pain Skin: negative Neurologic: negative Psych: negative Exam Narrative Exam Narrative: Physical Examination General: alert, awake, cooperative, resting comfortably, no acute distress HEENT: normocephalic, atraumatic Extremities: Swelling and ecchymosis to dorsal lateral metatarsal region left foot; no malleoli or tenderness, range of motion toes ankle knee and hip intact, ambulatory without assistance, soft compartments DP pulse intact, sensation intact Course Vital Signs Vital signs: Vital Signs Temperature 36.8 C 07/03/23 08:13 Pulse 76 07/03/23 08:13 Respiratory Rate 17 07/03/23 08:13 Blood Pressure 168/74 H 07/03/23 08:13 Pulse Oximetry 98 07/03/23 08:13 Temperature 36.8 C 07/03/23 08:13 Temperature Source Temporal Artery Scan 07/03/23 08:13 Pulse 76 07/03/23 08:13 Respiratory Rate 17 07/03/23 08:13 Respiratory Effort Normal 07/03/23 08:15 Blood Pressure 168/74 H 07/03/23 08:13 Blood Pressure Position Supine 07/03/23 08:13 Pulse Oximetry 98 07/03/23 08:13 Oxygen Delivery Method Room Air 07/03/23 08:13 Oxygen Flow Rate 0 07/03/23 08:13 Pain Level 5 07/03/23 08:13 Medical Decision Making 77-year-old female presents after rolling her left ankle and foot yesterday, ecchymosis and swelling to dorsal lateral aspect of metatarsal region left foot, neurovascular exam of limb intact ambulatory without assistance. Consider high-grade sprain versus contusion versus must consider metatarsal fracture lower suspicion for fracture or dislocation of ankle. Patient does not want any analgesia anti-inflammatory at this time. Will obtain x-ray of foot and ankle. Likely home with close follow-up 9: 56 nondisplaced tuberosity fracture of fifth metatarsal. Will be placed in boot if available or Kenny wrap and hard soled shoe. Home care instructions return precautions given. Ortho follow-up in 3 weeks when she returns from her trip. 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 On Prolia Abnormal LFTs (liver function tests) (Chronic) Likely secondary to [place] [facility] [place] Diverticulosis of colon (Chronic) Medical History (Updated 07/03/23 @ 09:57 by Isreal Carballo MD) Essential hypertension 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 denies she is diabetic Invasive lobular carcinoma of right breast in female (~2000) S/p chemo, radiation, mastectomy Invasive lobular carcinoma of left breast in female (~11/2019) S/p total mastectomy Basal cell carcinoma Right posterior calf 2020, left nasal sidewall 2022 Vitamin D deficiency Surgical History (Updated 02/22/23 @ 15:01 by Zeny James NP) S/P Mohs surgery for basal cell carcinoma (02/20/23) Hx of cataract removal with insertion of prosthetic lens H/O Whipple procedure (03/23/20) Pancreatectomy, partial gastrectomy with pancreaticojejunostomy, cholecystectomy History of pancreatectomy (03/23/20) Whipple, H/O total mastectomy of left breast (12/20/19) History of esophagogastroduodenoscopy (EGD) (~2012) History of modified radical mastectomy of right breast (02/06/01) S/P colonoscopy (01/07/14) History of tonsillectomy Family History Mother , age 76 Depression Hypertension Father , age 68 Heart disease Hyperlipidemia Alcohol abuse Hypertension Sister Hyperlipidemia Breast cancer In her 50s Brother Depression Heart disease Hyperlipidemia Stroke Substance abuse Alcohol abuse Hypertension Myocardial infarction Maternal Grandfather Stroke Maternal Grandmother No problems noted. Paternal Grandfather No problems noted. Paternal Grandmother , At 92 Osteoporosis Social History (Updated 02/22/23 @ 10:44 by Padmini Kauffman) Smoking/Tobacco Use Status: Never Second Hand Exposure: Yes Smoking risk assessment performed?: Yes Alcohol Intake: former Drug use: Never Substance use type: does not use Adopted: No Caregiver/Support person: No Foster care: No Household members: none Housing: house Number of Children: 3 number of grandchildren: 3 Communication Needs: None Do you need help understanding health information?: Never current occupation: retired Pets and animals: No Sexually active: No Do you think of yourself as: straight/heterosexual Current gender identity: female What is your relationship status?: How often do you talk on the phone with friends or family?: three or more times per week How often do you get together with friends or relatives?: three or more times per week How often do you attend cheondoism or jainism services?: 4 or more times per year Do you belong to any clubs or organized social groups?: yes Panel score (0-1 are the most socially isolated patients): 3 What type of physical activity do you participate in: walking Duration: 45-60 minutes/day Frequency: 3-4 times per week Marti/Congregation: [employer] Special marti needs: No Agree to transfusion: Yes Seatbelt use: always Helmet use: Yes Helmet use: sometimes 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
--- NOTE | 2023-07-06 09:22 | NUR.NOTE ---
Accessed chart to print provider note for [facility] billing. Nursing Note:
== END 2023-07-03 10:17 | disposition home or self-care (01) ==
PROVIDERS: Emergency Provider Emergency Medicine; PCP Nurse Practitioner Family
DX: M25.572 Pain in left ankle and joints of left foot (principal); S92.353A Displaced fracture of fifth metatarsal bone, unspecified foot, initial encounter for closed fracture
CPT/HCPCS: 28470; 29515; 99284; 73610; 73630; 99283

== ENCOUNTER 2023-07-27 15:17 | Outpatient (CLI) | payer MEDICARE, BC, SELFPAY ==
--- NOTE | 2023-07-27 09:30 | DI.RAD_ITS ---
Exam(s) XR FOOT LT COMPLETE EXAM: XR FOOT LT COMPLETE CLINICAL HISTORY: L 5TH METATARSAL FX. TECHNIQUE: 2D digital imaging was performed of the left foot. Three images were obtained. AP, obli que and lateral views were obtained. COMPARISON: CR XR FOOT LT COMPLETE from 07/03/2023 FINDINGS: BONES: There is again seen a nondisplaced fracture through the base of the 5th metatarsal. There is a small plantar calcaneal spur. No bony destructive lesion is seen. JOINTS: No dislocation present. The joint spaces are well maintained. SOFT TISSUE: Normal. IMPRESSION: Stable alignment of the nondisplaced fracture through the base of the 5th metatarsal bone. DATA REPOSITORY: RADIATION DOSE DELIVERED:
== END 2023-07-27 15:18 | disposition home or self-care (01) ==
LOC: DIORS 15:17
PROVIDERS: PCP Nurse Practitioner Family; Visit Provider Physician Assistant
DX: S92.355D Nondisplaced fracture of fifth metatarsal bone, left foot, subsequent encounter for fracture with routine healing; X58.XXXD Exposure to other specified factors, subsequent encounter
CPT/HCPCS: 99213; 73630

== ENCOUNTER → 2023-08-29 13:06 | Outpatient (BNVA) | payer MEDICARE, BC, SELFPAY | PROVIDERS: PCP Nurse Practitioner Family; Referring Provider Nurse Practitioner Family; Visit Provider Student in an Organized Health Care Education/Training Program | DX: S92.355D Nondisplaced fracture of fifth metatarsal bone, left foot, subsequent encounter for fracture with routine healing (principal); X58.XXXD Exposure to other specified factors, subsequent encounter | CPT/HCPCS: 99213 ==

== ENCOUNTER 2023-11-02 02:24 | Outpatient (CLI) | payer MEDICARE, BC, SELFPAY ==
--- OUTSIDE RECORDS SUMMARY | 2023-11-02 02:25 | XMS_ITS | Encounter Summary ---
Author Organization [facility] Address [facility] [place] [address] Care Team Providers Care Director Cardiology Name Role Phone Zeny James APRN Primary Care Provider Encounter Details Date Type Department Care Team (Late st Contact Info) Description 11/01/2023 Orders [place] [address] Regino Carolina MD [facility] [place] [address] Exocrine pancreatic insufficiency; IPMN (intraductal papillary mucinous neoplasm) Social History Tobacco Use Types Packs/Day Years Used Date Smoking Tobacco: Never Smokeless Tobacco: Never Alcohol Use Standard Drinks/Week Comments Not Currently 0 (1 standard drink = 0.6 oz pur e alcohol) Overall Financial Resource Strain (CARDIA) Answe r Date Recorded How hard is it for you to pa y for the very basics like food, housing, medical care, and heating? Not very hard 04/29/2021 Hunger Vital Sign Answer Date Recorded Within the past 12 months, y ou worried that your food would run out before you got the money to buy more. Never true 04/29/19 22 Within the past 12 months, t he food you bought just didn't last and you didn't have money to get more. Never true 04/29/2021 PRAPARE - Transportation Answer Date Re corded In the past 12 months, has l ack of transportation kept you from medical appointments or from getting medications? No 04/17 In the past 12 months, has l ack of transportation kept you from meetings, work, or from getting things needed for daily living? No 04/29/2021 Housing Stability Vital Sign Answer Jose Roberto e Recorded In the last 12 months, was t here a time when you were not able to pay the mortgage or rent on time? No 04/29/2021 In the last 12 months, how many places have you lived? 1 04/29/2021 In the last 12 months, was t here a time when you did not have a steady place to sleep or slept in a alf (including now)? No 04/29/2021 Sex and Gender Information Value Date Recorded Sex Assigned at Not on file Gender Identity Not on file Sexual Orientation Not on file documented as of this encounter Plan of Treatment Upcoming Encounters Date Type Department Care Team (Late st Contact Info) Description 11/02/2023 1:00 PM EDT Office Visit Hematology/Oncology at [address] [phone] Mary Nails APRN [address] [place] [address] MEDICAL ONCOLOGY [place], [place] [id number] 11/02/2023 1:30 PM EDT Infusion Hematology Oncology at [address] [phone] Scheduled Orders Name Type Priority Associated Diagnoses Orde r Schedule Creatinine Lab STAT IPMN (intraductal papillary mucinous neoplasm) Expected: 11/01/2023 (Approximate), Expires: 11/01/2024 documented as of this encounter Visit Diagnoses Diagnosis Exocrine pancreatic insufficiency Other specified disease of pancreas IPMN (intraductal papillary mucinous neoplasm) Neoplasm of unspecified nature of digestive system documented in this encounter Care Teams Director Cardiology Relationship Specialty Start Date End Date Zeny James APRN [address] [place] [address] PCP - General Family Medicine 09/23/19 documented as of this encounter
--- OUTSIDE RECORDS SUMMARY | 2023-11-02 02:25 | XMS_ITS | Clinical Summary ---
[facility] [place] [address] Care Team Providers Care Fur Designer Name Role Phone Zeny James EXPERIENTIAL THERAPIST Primary Care Provider Allergies Active Allergy Reactions Criticality Noted Date Comments House Dust Medications Medication Sig Dispensed Refills Start Date End Date Status fish oil-omega-3 fatty acids 1,000 mg Capsule Take 1 g by mouth daily. Active cholecalciferol, Vitamin D3, 1,000 unit Capsule Take 4,000 Units by mouth daily. Active multivit,iron,min erals/lutein (CENTRUM SILVER ULTRA WOMEN'S ORAL) Take 1 tablet by mouth daily. Active magnesium oxide 400 mg magnesium Capsule Take 1 capsule by mouth daily. Active Wixela Inhub 500-50 mcg/dose Disk with Device Inhale 1 puff into the lungs 2 times daily. 08/20/2019 Active aspirin EC 81 mg Tablet, Delayed Release (E.C.) Take 81 mg by mouth daily. Active b complex vitamins Capsule Take 1 capsule by mouth daily. Active pravastatin (Pravachol) 20 mg Tablet Take 20 mg by mouth daily. Active albuteroL 90 mcg/actuation HFA Aerosol Inhaler Inhale 1-2 puffs into the lungs every 4 hours as needed. 01/10/2020 Active vitamin E (vitamin E) 400 unit Capsule Take 1 capsule by mouth daily. 03/31/2020 Active acetaminophen (Tylenol) 500 mg Tablet Take 2 tablets by mouth every 6 hours as needed for Pain. 03/31/2020 Active Blood-Glucose Meter Misc 1 Application by CoffeeTable.(Non-Drug; Combo Route) route 3 times daily (before meals). 1 each 04/11/2020 Active omeprazole (PriLOSEC) 20 mg Capsule, Delayed Release(E.C.) Take 20 mg by mouth daily. Active hydroCHLOROthiazi de (Hydrodiuril) 12.5 mg Tablet Take 12.5 mg by mouth daily. Active sennosides/docusa te sodium (SENNA WITH DOCUSATE SODIUM ORAL) Take 1 tablet by mouth nightly. Active denosumab (PROLIA SUBQ) Inject subcutaneously Q6 Months. Active ferrous sulfate EC (FeroSul) 325 mg (65 mg iron) DR tablet Take 325 mg by mouth See Admin Instructions. Every other day Active anastrozole (Arimidex) 1 mg tabletIndications :Malignant neoplasm of upper-outer quadrant of left breast in female, estrogen receptor positive Take 1 tablet by mouth daily. 90 tablet 3 11/10/2022 Active ykehrn-stksglpm-f mylase (Ryan) 24,000-76,000 -120,[address] capsule TAKE 3 CAPSULES BY MOUTH TID WITH MEALS. TAKE 1 CAPSULE WITH SNACKS DAILY (10 CAPSULES/DAY) 900 capsule 3 01/11/2023 Active cranberry fruit extract (CRANBERRY CONCENTRATE ORAL) Take 1 tablet by mouth Daily at Noon. Active cephALEXin (Keflex) 500 mg capsuleIndication s:Basal cell carcinoma (BCC) of right side of nose One Capsule twice daily for 5 days by mouth. 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 Gastroparesis 03/31/2020 Pre-diabetes 03/30/2020 Malignant neoplasm of left b reast in female, estrogen receptor positive 12/10/2019 Overview (12/10/2019): Dx: 12/05/19 [facility] [place] IPMN (intraductal papillary mucinous neoplasm) 0 11/25/2019 AK (actinic keratosis) 09/18/2014 Seborrheic dermatitis 01/07/2014 Nevus 05/06/2013 SK (seborrheic keratosis) 05/06/2013 Solar lentigo 12/26/2011 Seborrheic keratosis 11/14/2010 Multiple pigmented nevi 11/14/2010 CIS - Entered not Verified 01/22/2010 CIS - R breast cancer 11/15/2000 Overview (06/22/2010): Mid : Presented with palpable mass in R breast (lower outer quadrant), though this was not clearly abnormal on mammogram and ultrasound. FNA done by Dr. Albarran (01/12) read as atypical. See Dr. Albarran's note for description of exam pre-surgery. 01/23/01: Excisional biopsy of 3 sites. All three were revealed to be invasive lobular carcinoma (plus some LCIS) by path. R central lower mass was 1 cm and with a positive margin, R lower outer quadrant specimen had a 1.7 cm tumor, with involoved margin, and R lateral lower outer quadrant specimen had a 2.0 cm tumor. A couple of the specimens had focally suggestive angiolymphatic invasion. ER-pos; OH-neg; HER2=2+. 02/06/01: R MRM/ax dissection. On path, another 5 mm of invasive lobular cancer was seen. Nodes positive: 2 of 9. 03/21/01: Began adjuvant chemo with 'AC' at 60/600. Tolerated the AC overall fairly well, with minimal nausea and some fatigue. We decided to move on to taxol b/o a drop in her ejection fraction after the 4th cycle (though still in the normal range, an approx 10% relative decrease from her baseline). Received 4 cycles of Taxol at 175 mg/m2. September 2001-October 2001: Received radiation therapy to right chest wall from Dr. Cleary. October 2001 Began adjuvant tamoxifen. Completed 5 yr course October 2006, at which time she switched to Femara. After 1 month had signif aches/pains in joints (arms and legs) and so Femara was stopped in Jan 2007. When next seen we agreed to start Exemestane, but stopped this too b/o same side effects after 4 months. CIS - Healthcare Maintenance CIS - Hypertension CIS - Myalgias Encounters Date Type Department Care Team Description 11/01/2023 Orders [place] [address] Regino Carolina MD IPMN (intraductal papillary mucinous neoplasm) 11/01/2023 [place] [address] Regino Carolina MD Exocrine pancreatic insufficiency; IPMN (intraductal papillary mucinous neoplasm) 09/21/2023 1:30 PM EDT Office Visit Dermatology at [facility] [address] [facility] [place] [address] Jayro Mack MD Visit for suture removal 09/21/2023 Travel 09/08/2023 Telephone Dermatology at [facility] [address] [place] [address] Charu Hester RN Bleeding/Bruising 09/08/2023 Telephone Dermatology at [facility] [address] [place] [phone] Jayro Mack MD 09/07/2023 11:00 AM EDT Procedure visit Dermatology at [facility] [address] [place] [phone] Jayro Mack MD Basal cell carcinoma (BCC) of right side of nose 09/07/2023 10:45 AM EDT Clinical Support Dermatology at [facility] [address] [place] [phone] Jayro Mack MD Basal cell carcinoma of right side of nose 09/07/2023 Travel from Last 3 Months Family History Medical History Relation Comments Breast Cancer Sister CHEK2 mutation Ovarian Cancer Neg Hx Relation Status Comments Sister Alive Social History Tobacco Use Types Packs/Day Years [...] place to sleep or slept in a retirement (including now)? No 04/29/2021 Sex and Gender Information Value Date Recorded Sex Assigned at Not on file Gender Identity Not on file Sexual Orientation Not on file Last Filed Vital Signs Vital Sign Reading Time Taken Comments Blood Pressure 162/78 09/07/2023 10:49 AM EDT Pulse 67 09/07/2023 10:49 AM EDT Temperature 36.4 ??C (97.5 ??F) 05/04/2023 9:55 AM ES T Respiratory Rate 16 05/04/2023 9:55 AM EST Oxygen Saturation 100% 05/04/2023 9:55 AM EST Inhaled Oxygen Concentration - - Weight 49.1 kg (108 lb 3.2 oz) 05/04/2023 9:55 A M EST Height 154.9 cm (5' 0.98) 05/04/2023 9:55 AM ES T Body Mass Index 20.45 05/04/2023 9:55 AM EST Plan of Treatment Upcoming Encounters Date Type Department Care Team (Late st Contact Info) Description 11/02/2023 1:00 PM EDT Office Visit Hematology/Oncology at [address] [phone] Mary Nails APRN [address] [place] [address] DR MEDICAL ONCOLOGY [place], [place] [id number] 11/02/2023 1:30 PM EDT Infusion Hematology Oncology at [address] [address] Health Maintenance Due Date Last Done Comments Hepatitis C Screening 1963 Tdap adult 1965 Tetanus vaccine 1965 Zoster vaccine (1 of 2) 1996 Advance Directive 2001 Pneumoccocal Vaccine: 65+ (1 of 1 - PCV) 09/30/2011 Covid-19 Vaccine (1 - 2022-2 4 season) 2022 Influenza (Flu) vaccine (1 o f 1 - Influenza standard series) 12/17/2023 Bone Density Scan 01/27/2035 01/28/2020, , 03/26/2012 Colonoscopy Discontinued 01/07/2014, 01/07/2014 Colorectal Cancer Screening Discontinued Sigmoidoscopy (10 year) with FIT yearly Discontinued 01/07/2014, 01/07/2014 Breast Cancer screening Discontinued 11/25/19, 11/15/2018, 10/12/2017, Additional history exists CT Colonography Discontinued FIT DNA Discontinued FIT Discontinued Sigmoidoscopy Discontinued Medical Devices Implanted Type Area German Instructor Device Identifier Shelf Expiration Date Model / Serial / Lot Breast Clip-12/05/2019 Implanted:Qty: 1 on 12/05/2019 by China Ramirez MD Breast Clip Breast [facility] [place]-13 / [id number] / [id number] Staple 60mm Endo Thick White Blue Green Syn Seamguard ([id number]) - [id number] Implanted:Qty: 1 on 03/23/2020 by Regino Carolina MD at [facility] IMPLANTS Abdomen [employer] [place] AN [id number] / / [id number] Procedures Procedure Name Priority Date/Time Associated Diagnosis Comments DXA CENTRAL SPINE, HIP, AND/OR WHOLE BODY (GENERIC) Routine 01/28/2020 9:43 AM EDT Malignant neoplasm of upper-outer quadrant of left breast in female, estrogen receptor positive Osteopenia, unspecified location termite helper 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 Bone mineral density measurements are not significantly changed over 5 years. Estimating Fracture Risk: The relationship between bone mineral density (BMD) and risk of fracture is well established. As BMD decreases, risk increases. Quantifying risk is difficult and is usually limited to estimation of the relative risk - a term which may have limited value when trying to discuss an individual's risk. Estimating the absolute risk for a patient requires an understanding of the incidence rate in a given population and consideration of multiple, partially independent, risk factors in addition to BMD. The World Health Organization (WHO) has developed a fracture risk prediction tool that calculates a ten-year risk of major osteoporotic fracture based on femoral neck bone density measurements and nine clinical risk factors for individuals who have not been treated for osteoporosis. This is available through an interactive web-based interface (http://www.shef.ac.uk/FRAX/) and can be used to estimate a given patient's absolute risk of major osteoporotic fracture or hip fracture over the next 10 years. These estimates may prove useful when discussing risk with a patient. It is important, however, to understand the tool's limitations and how a given individual's risk might differ from the tool's estimate. The tool does not take into account the dose-response associated with most risk factors. For example, the significant increase in risk associated with multiple prior fractures compared to a single prior fracture is not taken into account. Similarly, the location of a previous fracture, the amount of glucocorticoids and number of cigarettes smoked are not considered. These limitations are discussed in a Frequently Asked Questions section of the FRAX website which you are encouraged to review. DEXA data sheets with BMD measurements and plots are available in [employer] under the imaging tab. Paper copies will be sent to providers without [employer] access. If you have received this report without the data sheet and do not have access to [employer], please contact Radiology Leadership Development Consultant at [phone] Monday thru Monday 8am-4pm. Thank you for letting us participate in the care of this patient. For questions regarding this report, please contact the number below. ? Electronically signed by: Maria Esther Stallworth MD, [facility] ([phone]), at 01/28/2020 1:15 PM Narrative 01/28/2020 1:15 PM EDT EXAMINATION: DXA CENTRAL SPINE, HIP, AND/OR WHOLE BODY (GENERIC) CLINICAL HISTORY: ??74 years Female Aromatase inhibitor therapy for BrCa ?? (as entered by ordering provider) TECHNIQUE: Scans were acquired at the lumbar spine, and left hip. FINDINGS: Femoral neck BMD: 0.612 ? g/cm2 Lowest T-score at the diagnostic region of interest: T-score: -2.1, CATARINO: Left femoral neck, WHO diagnosis: osteopenia. ......... Comparison......... Previous scan:04/28/2014 Baseline scan:12/18/2001 Total spine: Compared to the previous, 0.017 ??g/cm2 (1.8 %) decrease. This change is so small that it is unlikely to represent a statistically significant change. Compared to the baseline, 0.002 g/cm2 (0.2 %) decrease. This change is so small that it is unlikely to represent a statistically significant change. At [facility], least significant change for bone mineral density measurements at the spine region of interest: 0.031 g/cm2 Total hip: Compared to the previous, 0.018 ??g/cm2 (2.4 %) decrease. This change is so small that it is unlikely to represent a statistically significant change. Compared to the baseline, 0.045 g/cm2 (5.7 %) decrease. At [facility], least significant change for bone mineral density measurements at the left total hip region of interest: 0.025 g/cm2 Procedure Note Maria Esther Stallworth MD - 01/28/2020 EXAMINATION: DXA CENTRAL SPINE, HIP, AND/OR WHOLE BODY (GENERIC) CLINICAL HISTORY: 74 years Female Aromatase inhibitor therapy for BrCa (as entered by ordering provider) TECHNIQUE: Scans were acquired at the lumbar spine, and left hip. FINDINGS: Femoral neck BMD: 0.612 g/cm2 Lowest T-score at the diagnostic region of interest: T-score: -2.1, CATARINO: Left femoral neck, WHO diagnosis: osteopenia. ......... Comparison......... Previous scan:04/28/2014 Baseline scan:12/18/2001 Total spine: Compared to the previous, 0.017 g/cm2 (1.8 %) decrease. This change is sosmall that it is unlikely to represent a statistically significant change. Compared to the baseline, 0.002 g/cm2 (0.2 %) decrease. This change is sosmall that it is unlikely to represent a statistically significant change. At [facility], least significant change for bonemineral density measurements at the spine region of interest: 0.031 g/cm2 Total hip: Compared to the previous, 0.018 g/cm2 (2.4 %) decrease. This change is sosmall that it is unlikely to represent a statistically significant change. Compared to the baseline, 0.045 g/cm2 (5.7 %) decrease. At [facility], least significant change for bonemineral density measurements at the left total hip region of interest: 0.025g/cm2 IMPRESSION Measurements meet WHO criteria for osteopenia. Bone mineral density measurements are not significantly changed over 5years. Estimating Fracture Risk: The relationship between bone mineral density (BMD) and risk of fractureis well established. As BMD decreases, risk increases. Quantifying risk isdifficult and is usually limited to estimation of the relative risk - a term which mayhave limited value when trying to discuss an individual's risk. Estimatingthe absolute risk for a patient requires an understanding of the incidencerate in a given population and consideration of multiple, partially independent,risk factors in addition to BMD. The World Health Organization (WHO) has developed a fracture riskprediction tool that calculates a ten-year risk of major osteoporotic fracture basedon femoral neck bone density measurements and nine clinical risk factorsfor individuals who have not been treated for osteoporosis. This isavailable through an interactive web-based interface (http://www.shef.ac.uk/FRAX/)and can be used to estimate a given patient's absolute risk of majorosteoporotic fracture or hip fracture over the next 10 years. These estimates mayprove useful when discussing risk with a patient. It is important, however, to understand the tool's limitations and how a given individual's risk mightdiffer from the tool's estimate. The tool does not take into account thedose-response associated with most risk factors. For example, the significant increasein risk associated with multiple prior fractures compared to a single priorfracture is not taken into account. Similarly, the location of a previous fracture,the amount of glucocorticoids and number of cigarettes smoked are notconsidered. These limitations are discussed in a Frequently Asked Questions sectionof the FRAX website which you are encouraged to review. DEXA data sheets with BMD measurements and plots are available in E-DHunder the imaging tab. Paper copies will be sent to providers without E- access.If you have received this report without the data sheet and do not haveaccess to [employer], please contact Radiology Leadership Development Consultant at [phone] Monday 8am-4pm. Thank you for letting us participate in the care of this patient. Forquestions regarding this report, please contact the number below. Electronically signed by: Maria Esther Stallworth MD, [facility]([phone]), at 01/28/2020 1:15 PM Roosevelt Dueñas MD IMG DEXA ORDERABLES * Mammo Screening Cad and Speedy Left (11/25/2019 11:50 AM EDT) Anatomical Region Laterality Modality Breast Left Mammography Impressions 11/25/2019 12:12 PM EDT BIRADS CATEGORY 0: Incomplete: Need additional Imaging evaluation. Diagnostic imaging of the left breast. Thank you for letting us participate in the care of this patient. For questions regarding this report, please contact the number below. ? Narrative 11/25/2019 12:12 PM EDT REASON FOR EXAM: Screening. ??74-year-old female, right breast cancer, mastectomy, . TECHNIQUE: CC and MLO views were obtained of the left breast. Computer aided detection was used. 3D tomosynthesis images were obtained in addition to 2D images. COMPARISONS: ??Compared with prior images. FINDINGS: Breast density: The breasts are heterogeneously dense, which may obscure small masses. The Left breast is abnormal and additional imaging is required. There is a subtle focal asymmetry of the outer left breast, at approximately 3:00, 7 to 8 cm from the nipple measuring 1 cm. Zeny Adjirenau EXPERIENTIAL THERAPIST IMG MAMMO ORDERABLE S * COLONOSCOPY (01/07/2014 12:22 PM EDT) COLONOSCOPY [facility] Endoscopy Patient Name: Linda Serrano ? Procedure Date: 01/07/2014 12:22 PM ? Date of : 1945 ? Age: 68 ? Order #: [id number] ? Procedure: ? Colonoscopy Indications: ? Screening for colorectal malignant ? neoplasm Providers: ? Izzy Johnson MD, Yesi Woodruff, ? RN, Willem Lane, Pier Worker Referring MD: ?Villa Krause MD Medicines: ? Fentanyl 150 micrograms IV, Midazolam ? 3.5 mg IV Complications: ? No immediate complications. Procedure: ? Pre-Anesthesia Assessment: ? - Prior to the procedure, a History ? and Physical was performed, and ? patient medications, allergies and ? sensitivities were reviewed. The ? patient's tolerance of previous ? anesthesia was reviewed. ? - The risks and benefits of the ? procedure and the sedation options ? and risks were discussed with the ? patient. All questions were answered ? and informed consent was obtained. ? - Patient identification and proposed ? procedure were verified prior to the ? procedure by the physician. The ? procedure was verified in the ? pre-procedure area. ? - Pre-procedure physical examination ? revealed no contraindications to ? sedation. ? - ASA Grade Assessment: II - A ? patient with mild systemic disease. ? - After reviewing the risks and ? benefits, the patient was deemed in ? satisfactory condition to undergo the ? procedure. ? - The anesthesia plan was to use ? moderate sedation/analgesia ? (conscious sedation). ? The procedure, indications, benefits, ? risks and alternatives were explained ? to the patient. Specifically ? discussed were potential ? complications including, but not ? limited to, bleeding, perforation, ? infection, missing a cancer, and ? adverse medication reactions. The ? patient was placed in the left ? lateral decubitus position, and a ? digital rectal exam was performed. ? The Colonoscope was inserted in the ? anus and under direct visualization, ? advanced to the terminal ileum. ? Careful inspection was made as the ? colonoscope was withdrawn. The ? colonoscopy was performed with ease. ? The patient tolerated the procedure ? well. The quality of the bowel ? preparation was excellent. ? Findings: ? The perianal and digital rectal examinations were ? normal. ? The terminal ileum appeared normal. ? Many small and large-mouthed diverticula were found ? in the entire colon. There were inverted diverticuli ? throughout the left colon. ? The exam was otherwise without abnormality on direct ? and retroflexion views. ? Impression: ?- The examined portion of the ileum ? was normal. ? - Diverticulosis in the entire ? examined colon. ? - The examination was otherwise ? normal on direct and retroflexion ? views. Recommendation: ?- Discharge patient to home. ? - Regular diet ? - Next colonoscopy for screening in ? 10 years,. ? Attending Participation: ? I personally performed the entire procedure. ? Izzy Johnson MD 01/07/2014 1:38 PM Number of Addenda: 0 Note Initiated On: 01/07/2014 12:22 PM PROVATION 01/07/2014 12:2 2 PM EDT Villa Krause MD GENERAL SURGICAL ORD ERABLES PROVATION from Last 3 Months or Most Recently Relevant to Health Maintenance Advance Directives * Attempt Cardiopulmonary Resuscitation - Inpatient (Latest Code Status on File) Date Activated Date Inactivated Comments 03/23/2020 5:57 PM 04/11/2020 6:25 PM Question Answer Comments Code Status decision made by: Patient Care Teams Fur Designer Relationship Specialty Start Date End Date Zeny James APRN [address] [place], [place] [address] PCP - General Family Medicine 09/23/19
--- OUTSIDE RECORDS SUMMARY | 2023-11-02 02:25 | XMS_ITS | Encounter Summary ---
Author Organization [facility] Address [facility] [place] [address] Care Team Providers Care Bundle Shaker Name Role Phone Zeny James APRN Primary Care Provider Reason for Visit * Reason Comments Suture / Staple Removal Encounter Details Date Type Department Care Team (Late st Contact Info) Description 09/21/2023 1:30 PM EDT Office Visit Dermatology at [place] [address] [place] [address] Jayro Mack MD [facility] DR [facility] [address] Visit for suture removal Social History Tobacco Use Types Packs/Day Years [...] place to sleep or slept in a correction (including now)? No 04/29/2021 Sex and Gender Information Value Date Recorded Sex Assigned at Not on file Gender Identity Not on file Sexual Orientation Not on file documented as of this encounter Progress Notes * Jayro Mack MD - 09/21/2023 1:30 PM EDT Images from the original note were not included. Patient: Linda Serrano Date of . 1945 Today's Date: 09/21/2023 Linda Serrano is a 77 y.o. female here for suture removal. Exam: well healing incision and graft, no evidence of infection Photograph: Plan: 1. Sutures removed today. 2. Follow up with referring provider or district resource officer for skin exams. 3. Follow up with Dr. Mack: as needed Note initiated by UCHE Brownlee LPN has performed the documentation for this encounter in the presence of and acting as a scribe for Dr. Mack I performed the above scribed service and agree with the accuracy of the documentation in this encounter. Reviewed and signed by: Jayro Mack Dermatology [facility] documented in this encounter Plan of Treatment Upcoming Encounters Date Type Department Care Team (Late st Contact Info) Description 11/02/2023 1:00 PM EDT Office Visit Hematology/Oncology at [address] [phone] Mary Nails APRN [address] [place] [address] DR MEDICAL ONCOLOGY [place], [place] [id number] 11/02/2023 1:30 PM EDT Infusion Hematology Oncology at [address] [phone] documented as of this encounter Visit Diagnoses Diagnosis Visit for suture removal Encounter for removal of sutures documented in this encounter Care Teams Bundle Shaker Relationship Specialty Start Date End Date Zeny James APRN [address] [place] [address] [address] [place], [place] [id number] PCP - General Family Medicine 09/23/19 documented as of this encounter
--- OUTSIDE RECORDS SUMMARY | 2023-11-02 02:25 | XMS_ITS | Encounter Summary ---
Author Organization [facility] Address [facility] [place] [address] Care Team Providers Care Hyperbaric Welder Diver Name Role Phone Zeny James SEMICONDUCTOR WAFERS TESTER Primary Care Provider Encounter Details Date Type Department Care Team (Latest Contact Info) Description 09/21/2023 Travel Social History Tobacco Use Types Packs/Day Years [...] place to sleep or slept in a long term (including now)? No 04/29/2021 Sex and Gender Information Value Date Recorded Sex Assigned at Not on file Gender Identity Not on file Sexual Orientation Not on file documented as of this encounter Plan of Treatment Upcoming Encounters Date Type Department Care Team (Late st Contact Info) Description 11/02/2023 1:00 PM EDT Office Visit Hematology/Oncology at [address] [phone] Mary Nails APRN [address] [place] [address] MEDICAL ONCOLOGY [place], [place] [address] 11/02/2023 1:30 PM EDT Infusion Hematology Oncology at [address] [phone] documented as of this encounter Visit Diagnoses Not on filedocumented in this encounter Care Teams Hyperbaric Welder Diver Relationship Specialty Start Date End Date Zeny James APRN [address] [place] [address] [address] [place] [address] PCP - General Family Medicine 09/23/19 documented as of this encounter
--- OUTSIDE RECORDS SUMMARY | 2023-11-02 02:25 | XMS_ITS | Encounter Summary ---
Author Organization [facility] Address [facility] [place] [address] Care Team Providers Care Carbide Tool Maker Name Role Phone Zeny James APRN Primary Care Provider Encounter Details Date Type Department Care Team (Late st Contact Info) Description 11/01/2023 Orders Only [place] [address] Regino Carolina MD [facility] [place] [address] IPMN (intraductal papillary mucinous neoplasm) Social History [...] place to sleep or slept in a residential (including now)? No 04/29/2021 Sex and Gender Information Value Date Recorded Sex Assigned at Not on file Gender Identity Not on file Sexual Orientation Not on file documented as of this encounter Plan of Treatment Upcoming Encounters Date Type Department Care Team (Late st Contact Info) Description 11/02/2023 1:00 PM EDT Office Visit Hematology/Oncology at [address] [phone] Mary Nails APRN [address] [place] [address] [place] [address] 11/02/2023 1:30 PM EDT Infusion Hematology Oncology at [address] [phone] documented as of this encounter Visit Diagnoses Diagnosis IPMN (intraductal papillary mucinous neoplasm) Neoplasm of unspecified nature of digestive system documented in this encounter Care Teams Carbide Tool Maker Relationship Specialty Start Date End Date Zeny James APRN [address] [place] [address] PCP - General Family Medicine 09/23/19 documented as of this encounter
--- OUTSIDE RECORDS SUMMARY | 2023-11-02 02:25 | XMS_ITS | Encounter Summary ---
Author Organization [facility] Address [facility] [place] [address] Care Team Providers Care Missile And Missile Checkout Technician Name Role Phone Zeny James APRN Primary Care Provider Reason for Visit * Reason Onset Date Comments Bleeding/Bruising 09/08/2023 Encounter Details Date Type Department Care Team (Late st Contact Info) Description 09/08/2023 Telephone Dermatology at [facility] [address] [place] [address] Charu Hester RN Bleeding/Bruising Social History Tobacco Use Types Packs/Day Years [...] place to sleep or slept in a fdc (including now)? No 04/29/2021 Sex and Gender Information Value Date Recorded Sex Assigned at Not on file Gender Identity Not on file Sexual Orientation Not on file documented as of this encounter Miscellaneous Notes * Telephone Encounter - Charu Hester RN - 09/08/2023 10:00 AM EDT Called patient back regarding her concerns about blood on her nose bandage. She states that there is no active bleeding from what she can tell. Patient is post- op day one from Mohs surgery with Dr. Evans for a basal cell carcinoma on the right nostril which was repaired by a full thickness skin graft, donor site being the right nasolabial fold. She emailed a photo of her bandage which was then uploaded into her chart under the Media tab. Informed patient that the small amount of dried blood on her bandage is normal, and she can keep her bandage in place until Monday when she is due to remove her bandage for the first time. Wound care instructions reviewed. Advised patient to hold firm dire ct pressure for 20 minutes if she has any further bleeding. Patient very appreciative of my phone call. documented in this encounter Plan of Treatment Upcoming Encounters Date Type Department Care Team (Late st Contact Info) Description 11/02/2023 1:00 PM EDT Office Visit Hematology/Oncology at [address] [phone] Mary Nails APRN [address] [place] [address] [place] [address] 11/02/2023 1:30 PM EDT Infusion Hematology Oncology at [address] [phone] documented as of this encounter Visit Diagnoses Not on filedocumented in this encounter Care Teams Missile And Missile Checkout Technician Relationship Specialty Start Date End Date Zeny James APRN [address] [place] [address] PCP - General Family Medicine 09/23/19 documented as of this encounter
--- OUTSIDE RECORDS SUMMARY | 2023-11-02 02:25 | XMS_ITS ---
Author Organization [facility] Address [facility] [place] [address] Care Team Providers Care Core Java Software Engineer Name Role Phone Zeny James APRN Primary Care Provider Active Problems Problem Noted Date Diagnosed Date Osteopenia 04/29/2021 long-term current use of aromatase inhibitor Gastroparesis 03/31/2020 Pre-diabetes 03/30/2020 Malignant neoplasm of left b reast in female, estrogen receptor positive 12/10/2019 Overview (12/10/2019): Dx: 12/05/19 [facility] IPMN (intraductal papillary mucinous neoplasm) 0 11/25/2019 [...] specimens had focally suggestive angiolymphatic invasion. ER-pos; DC-neg; HER2=2+. 02/06/01: R MRM/ax dissection. On path, [...] Maintenance CIS - Hypertension CIS - Myalgias Current Oncology Plans DH DENOSUMAB (PROLIA) 60 MG INJECTION - EVERY 6 MONTHS* Plan Start Date: 05/13/2021 Plan Provider:Jeffery Sanz MD Linked Problems Malignant neoplasm of left b reast in female, estrogen receptor positive, unspecified site of breastOsteopenia, unspecified locationLong term current use of aromatase inhibitor Treatment Medications No medications scheduled. Past Plans No past plan information found. Radiation Treatments * No radiation treatments are documented for this patient in [facility]. Treatments may have been administered in another system. Lifetime Dose Tracking * Chemical Lifetime Dose Automatic Entry Manual Entr y DLP (Dose Length Product) 777 mGy-cm 777 mGy-cm 0 mGy-cm CTDI (CT Dose Index) Min 14.02 mGy 14.02 mGy 0 m Gy CTDI (CT Dose Index) Max 14.02 mGy 14.02 mGy 0 m Gy
--- OUTSIDE RECORDS SUMMARY | 2023-11-02 02:26 | XMS_ITS | Encounter Summary ---
Author Organization [facility] Address [facility] [place] [address] Care Team Providers Care Panel Edge Sealer Name Role Phone Zeny James APRN Primary Care Provider Encounter Details Date Type Department Care Team (Late st Contact Info) Description 11/11/2022 Orders Only [place] [address] Regino Carolina MD [facility] [place] [address] IPMN (intraductal papillary mucinous neoplasm) Social History [...] 1:00 PM EDT Office Visit Hematology/Oncology at [address] [phone] Mary Nails APRN [address] [place] [address] [place] [address] 11/02/2023 1:30 PM EDT Infusion Hematology Oncology at [address] [phone] documented as of this encounter Visit Diagnoses Diagnosis IPMN (intraductal papillary mucinous neoplasm) Neoplasm of unspecified nature of digestive system documented in this encounter Care Teams Panel Edge Sealer Relationship Specialty Start Date End Date Zeny James APRN [address] [place] [address] PCP - General Family Medicine 09/23/19 documented as of this encounter
--- OUTSIDE RECORDS SUMMARY | 2023-11-02 02:26 | XMS_ITS | Encounter Summary ---
Author Organization [facility] [place] [address] Care Team Providers Care Furnace Charger Name Role Phone Zeny James APRN Primary Care Provider [phone] Reason for Referral * Consultation (Routine) - Closed Specialty Diagnoses / Procedures Referred By Nir potts Referred To Contact Dermatology Diagnoses Basal cell carcinoma (BCC) of left nasal sidewall Estela Velasquez MD [facility] [address] [place] [address] Jayro Mack MD [facility] [address] [place] [address] Referral ID Status Reason Start Date Expiration Date V isits Requested Visits Authorized [id number] Closed Consult, Test & Treat 12/30/2022 12/30/2023 1 1 Encounter Details Date Type Department Care Team (Latest Contact Info) Description 12/30/2022 Transcribe Orders Dermatology at [facility] [address] [place] [phone] Estela Velasquez MD [facility] DR [address]ARC[address] [place] [address] Basal cell carcinoma (BCC) of left nasal sidewall Social History Tobacco Use Types Packs/Day Years [...] place to sleep or slept in a custodial (including now)? No 04/29/2021 Sex and Gender Information Value Date Recorded Sex Assigned at Not on file Gender Identity Not on file Sexual Orientation Not on file documented as of this encounter Plan of Treatment Upcoming Encounters Date Type Department Care Team (Late st Contact Info) Description 11/02/2023 1:00 PM EDT Office Visit Hematology/Oncology at [address] [phone] Mary Nails APRN [address] [place] [address] MEDICAL ONCOLOGY [place], [place] [id number] 11/02/2023 1:30 PM EDT Infusion Hematology Oncology at [address] [phone] Scheduled Referrals Name Type Priority Associated Diagnoses Order Schedule Referral to Dermatology Outpatient Referral Routine Basal cell carcinoma (BCC) of left nasal sidewall Ordered: 12/30/2022 documented as of this encounter Visit Diagnoses Diagnosis Basal cell carcinoma (BCC) of left nasal sidewall documented in this encounter Care Teams Furnace Charger Relationship Specialty Start Date End Date Zeny James APRN [address] [place] [address] [address] [place] [address] PCP - General Family Medicine 09/23/19 documented as of this encounter
--- OUTSIDE RECORDS SUMMARY | 2023-11-02 02:26 | XMS_ITS | Encounter Summary ---
Author Organization [facility] Address [facility] [place] [address] Care Team Providers Care Flight Paramedic Name Role Phone Zeny James APRN Primary Care Provider Encounter Details Date Type Department Care Team (Latest Contact Info) Description 09/07/2023 10:45 AM EDT Clinical Support Dermatology at [facility] [address] [place] [address] Jayro Mack MD [facility] [address] [place] [address] Basal cell carcinoma of right side of nose Social History Tobacco Use Types Packs/Day Years [...] on file documented as of this encounter Last Filed Vital Signs Vital Sign Reading Time Taken Comments Blood Pressure 162/78 09/07/2023 10:49 AM EDT Pulse 67 09/07/2023 10:49 AM EDT Temperature - - Respiratory Rate - - Oxygen Saturation - - Inhaled Oxygen Concentration - - Weight - - Height - - Body Mass Index - - documented in this encounter Progress Notes * Rosa Teran LPN - 09/07/2023 10:45 AM EDT Mohs consultation and preoperative note (H&P) Patient Name: Linda Serrano Age: 77 y.o. Date of : 1945 Today's Date: 09/07/2023 REFERRING PROVIDER: Estela Velasquez MD CC: Mohs micrographic surgery for treatment of a cutaneous tumor HPI: Linda Serrano is a 77 y.o. female presenting for biopsy-proven Basal Cell Carcinoma,superficial and early nodular pattern location on the Right Nostril. The dermatologic preoperative information sheet was reviewed with pertinent positive and negative as below. DERMATOLOGIC PRE-OPERATIVE EVALUATION AND REVIEW OF SYSTEMS History of Mohs surgery- Yes 2022 Left side of nose. Pacemaker/Defibrillator-No Joint replacement or other implantable devices (e.g. Cochlear implant)-No Do you take a blood thinner- Yes ASA 81mg History of organ transplant- No History of artificial valve or stroke-No History of liver disease or bleeding disorder-No Do you have any medical problems that may affect your upcoming surgery-No Do you have any concerns regarding your upcoming surgery-No We ask patients to discontinue Fish oil/Multivitamin/Vit E/?? supplements and natural medicines not prescribed by a physician 1 week prior to surgery. SOCIAL HISTORY: Makes Own Decisions Yes Hearing aid or other devices: No Relevant travel history or future plans: No Tobacco use (amount per day, type of tobacco.):No Do you have any physical limitations that may affect your surgery-No PAST MEDICAL HISTORY Past medical history reviewed PAST SURGICAL HISTORY Past surgical history reviewed ALLERGIES: Allergies reviewed MEDICATIONS: Medications reviewed documented in this encounter Plan of Treatment Upcoming Encounters Date Type Department Care Team (Late st Contact Info) Description 11/02/2023 1:00 PM EDT Office Visit Hematology/Oncology at [address] [phone] Mary Nails APRN [address] [place] [address] DR MEDICAL ONCOLOGY [place], [place] [address] 11/02/2023 1:30 PM EDT Infusion Hematology Oncology at [address] [phone] documented as of this encounter Visit Diagnoses Diagnosis Basal cell carcinoma of right side of nose Basal cell carcinoma of skin of other and unspecified parts of face documented in this encounter Care Teams Flight Paramedic Relationship Specialty Start Date End Date Zeny James APRN [address] [place] [address] PCP - General Family Medicine 09/23/19 documented as of this encounter
--- OUTSIDE RECORDS SUMMARY | 2023-11-02 02:26 | XMS_ITS | Encounter Summary ---
Author Organization [facility] Address [facility] [place] [address] Care Team Providers Care Microstrategy Architect Developer Name Role Phone Zeny James APRN Primary Care Provider Encounter Details Date Type Department Care Team (Late st Contact Info) Description 12/21/2022 1:45 PM EDT Office Visit Dermatology at [facility] [address] [place] [address] Michael Cavazos MD [facility] [address] [facility] [address] Neoplasm of unspecified behavior of bone, soft tissue, and skin Social History Tobacco Use Types Packs/Day Years [...] place to sleep or slept in a [place] health care facility (including now)? No 04/29/2021 Sex and Gender Information Value Date Recorded Sex Assigned at Not on file Gender Identity Not on file Sexual Orientation Not on file documented as of this encounter Progress Notes * Dafne Calero, [facility] - 12/21/2022 1:45 PM EDT Images from the original note were not included. DEPARTMENT OF DERMATOLOGY Medical Dermatology Clinic Provider: MICHAEL CAVAZOS MD Patient's preferred name Linda Preferred contact method for results []myDH []Letter [x]Phone: Home Detailed phone message OK? Yes PAST MEDICAL HISTORY If no, type N. If yes, type date, location, treatment Melanoma N Dysplastic nevi N SCC N BCC 12/03/2020: right posterior calf, BCC, s/p ED&C 01/11/202101/2010 [address] [facility] [address] UV Exposure & Protection N Other relevant past medical history (i.e. eczema, psoriasis, birthmarks, immunosuppression) + SKs + Benign Nevi + Solar Lentigines + Lobular Carcinoma of the Right Breast (2000) + Cancer of the Let Breast, taking Anastrozole 1mg + HTN FAMILY HISTORY If yes, details Melanoma N NMSC N Other relevant family history N SOCIAL HISTORY Has radha carrasco PRE-PROCEDURE SCREENING If no, type N. If yes, include details below Allergy to lidocaine, epinephrine, Dermabond, chlorhexidine, or adhesives: No Bleeding disorder or blood thinners: ASA 81mg, Vitamin E, Pravastatin 20mg, [place]-3 Pacemaker, defibrillator, deep brain stimulator, cochlear implant: No History of Present Illness: Linda eSrrano is a 77 y.o. Patient returns to clinic today for spot on side of nose. Patient reports spot has been present for months and has slightly grown in size. Not currently treating. Last visit at Dermatology: 02/24/2022 Last visit with this provider: Visit date not found Medications: Reviewed in eD-H Allergies: Reviewed in eD-H Skin Examination: Focused skin examination of the left nasal sidewall was normal with the exception of the findings below. Assessment/Plan # Neoplasm of unspecified behavior of skin - - DDx: r/o BCC- 0.3cm pink pearly papule on the left nasal sidewall(figure 1) - joint decision to pursue shave biopsy today to clarify nature of lesion - Shave biopsy procedure note: Location: left nasal sidewall The patient's consent was obtained. Risk of incomplete removal, scarring, bleeding, infection, and pain were reviewed. Alcohol preparation was used. Anesthesia was obtained with 1.0% lidocaine with epinephrine. A shave biopsy was obtained and the specimen was sent to pathology for histologic evaluation. Hemostasis was obtained with AlCl and/or electrocautery. Vaseline and bandage were applied. Wound care was reviewed. There were no complications; the patient tolerated the procedure well. Figure 1 Photo(s) taken and charted with patient's verbal consent. Other: N/A RTC: Pending Pathology and otherwise PRN []Note routed to litigation legal secretary []Recall placed in scheduling system []Appointment scheduled at checkout Scribe attestation: Dafne Calero [facility] has performed the documentation for this encounter in the presence of and acting as a scribe for MICHAEL CAVAZOS MD. I performed the above scribed service and agree with the accuracy of the documentation in this encounter. Reviewed and signed by: MICHAEL CAVAZOS MD Dermatology [facility] * Michael Cavazos MD - 12/21/2022 1:45 PM EDT BCC as expected. Needs referral to Mohs, Please call patient to schedule, NCP documented in this encounter Plan of Treatment Upcoming Encounters Date Type Department Care Team (Late st Contact Info) Description 11/02/2023 1:00 PM EDT Office Visit Hematology/Oncology at [address] [phone] Mary Nails, [employer] HEAD INSPECTOR [address] [place] [address] [place] [address] 11/02/2023 1:30 PM EDT Infusion Hematology Oncology at [address] [phone] documented as of this encounter Procedures Procedure Name Priority Date/Time Associated Diagnosis Comments SURGICAL PATHOLOGY REPORT Routine 12/21/2022 1:54 PM EDT SPECIMEN TO PATHOLOGY Routine 12/21/2022 1:54 PM EDT Neoplasm of unspecified behavior of bone, soft tissue, and skin documented in this encounter Results * (ABNORMAL) Surgical Pathology Report (12/21/2022 1:54 PM EDT) Surgical Pathology Report [id number] ? Location: [facility] The signing pathologist has (i) examined the relevant preparation(s) for the specimen(s) and (ii) rendered or confirmed the diagnosis(es). . ?Surgical Pathology DIAGNOSIS Left ??nasal sidewall, skin shave biopsy: - ??Basal cell carcinoma, superficial and nodular types, ?? present at the peripheral and deep specimen edges Electronically signed by: ?Anastacio CLANCY, PhD, Ralf Aldrich Verified: ??12/28/2022 13:45 ??Dermatopathol ogist, Bone & Soft Tissue Pathologist Performed at: ??-[facility] Dept. of Pathology, [place] [address] Venereal Disease Investigator: Elaine Black MD, FCAP, ??CLIA Certificate: [id number] DISCUSSION THIS RESULT REQUIRES PHYSICIAN/A.P.P . FOLLOW UP SPECIMEN(S) SUBMITTED A - left ??nasal sidewall, skin shave biopsy (1) CLINICAL INFORMATION DDX: R/O BCC - 0.3 cm pink pearly papule on the left nasal sidewall SPECIMEN PROCESSING A - Labeled/Fixativ e: Patient demographics, formalin. Quantity/Size: ??Single, 0.7 x 0.5 x 0.1 cm. Tissue Description: Shave of white skin. Sections/Proces sing: Inked, trisected and entirely submitted in 1 cassette labeled A1. ??sdy(A) [facility] 12/21/2022 1:54 PM EDT Michael Cavazos MD PATHOLOGY/CYTOLOGY O LORE Performing Organization Address [facility]/ZIP Co de Phone Number [facility] [place] [address] * Specimen to Pathology (12/21/2022 1:54 PM EDT) AP Specimen 12/21/2022 1:54 PM EDT 12/21/2022 1:54 PM EDT Narrative [facility] - 12/21/2022 1:54 PM EDT Specimen requisition ordered. ??Separate Pathology report to follow Michael Cavazos MD PATHOLOGY/CYTOLOGY O LORE Performing Organization Address [facility] Co de Phone Number [facility] [place] [address] documented in this encounter Visit Diagnoses Diagnosis Neoplasm of unspecified behavior of bone, soft tissue, and skin documented in this encounter Care Teams Microstrategy Architect Developer Relationship Specialty Start Date End Date VasutomDelaneyZenyJESUS ALBERTO noriega [address] [place] [address] PCP - General Family Medicine 09/23/19 documented as of this encounter
--- OUTSIDE RECORDS SUMMARY | 2023-11-02 02:26 | XMS_ITS | Encounter Summary ---
Author Organization [facility] Address [facility] [place] [address] Care Team Providers Care Tester Compressed Gases Name Role Phone Zeny James HIMS CODER Primary Care Provider Encounter Details Date Type Department Care Team (Latest Contact Info) Description 01/03/2023 Travel Social History Tobacco Use Types Packs/Day [...] place to sleep or slept in a prison (including now)? No 04/29/2021 Sex and Gender Information Value Date Recorded Sex Assigned at Not on file Gender Identity Not on file Sexual Orientation Not on file documented as of this encounter Plan of Treatment Upcoming Encounters Date Type Department Care Team (Late st Contact Info) Description 11/02/2023 1:00 PM EDT Office Visit Hematology/Oncology at [address] [phone] Mary Nails APRN [address] [place] [address] MEDICAL ONCOLOGY [place], [place] [address] 11/02/2023 1:30 PM EDT Infusion Hematology Oncology at [address] [phone] documented as of this encounter Visit Diagnoses Not on filedocumented in this encounter Care Teams Tester Compressed Gases Relationship Specialty Start Date End Date Zeny James APRN [address] [place] [address] [address] [place] [address] PCP - General Family Medicine 09/23/19 documented as of this encounter
--- OUTSIDE RECORDS SUMMARY | 2023-11-02 02:26 | XMS_ITS | Encounter Summary ---
Author Organization [facility] Address [facility] [place] [address] Care Team Providers Care Naval Gunfire Liaison Officer Name Role Phone Zeny James PICKER MACHINE OPERATOR Primary Care Provider Encounter Details Date Type Department Care Team (Latest Contact Info) Description 06/29/2023 Travel Social History Tobacco Use Types Packs/Day [...] place to sleep or slept in a intermediate (including now)? No 04/29/2021 Sex and Gender Information Value Date Recorded Sex Assigned at Not on file Gender Identity Not on file Sexual Orientation Not on file documented as of this encounter Plan of Treatment Upcoming Encounters Date Type Department Care Team (Late st Contact Info) Description 11/02/2023 1:00 PM EDT Office Visit Hematology/Oncology at [address] [phone] Mary Nails APRN [address] [place] [address] MEDICAL ONCOLOGY [place], [place] [address] 11/02/2023 1:30 PM EDT Infusion Hematology Oncology at [address] [phone] documented as of this encounter Visit Diagnoses Not on filedocumented in this encounter Care Teams Naval Gunfire Liaison Officer Relationship Specialty Start Date End Date Zeny James APRN [address] [place] [address] [address] [place] [address] PCP - General Family Medicine 09/23/19 documented as of this encounter
--- OUTSIDE RECORDS SUMMARY | 2023-11-02 02:26 | XMS_ITS | Encounter Summary ---
[place] [address] Care Team Providers Care Overlock Operator Name Role Phone Zeny James APRN Primary Care Provider Reason for Referral * Diagnostic Test (Routine) - Closed Specialty Diagnoses / Procedures Referred By Contac t Referred To Contact Radiology Diagnoses IPMN (intraductal papillary mucinous neoplasm) Procedures CT Abdomen w Contrast Regino Carolina MD [facility] [place] [address] [facility] [place] [address] Referral ID Status Reason Start Date Expiration Date V isits Requested Visits Authorized [id number] Closed Specialty Service Requested 12/28/2021 06/28/2023 1 1 Reason for Visit * Diagnostic Test (Routine) - Closed Specialty Diagnoses / Procedures Referred By Contac t Referred To Contact Radiology Diagnoses IPMN (intraductal papillary mucinous neoplasm) Procedures CT Abdomen w Contrast Regino Carolina MD [facility] [place] [address] [facility] [place] [address] Referral ID Status Reason Start Date Expiration Date V isits Requested Visits Authorized [id number] Closed Specialty Service Requested 12/28/2021 06/28/2023 1 1 Encounter Details Date Type Department Care Team (Late st Contact Info) Description 01/03/2023 1:10 PM EDT - 01/03/2023 11:59 PM EDT Hospital Encounter CT Scan at [facility] [address] Regino Carolina MD [facility] [place] [address] IPMN (intraductal papillary mucinous neoplasm); Malignant neoplasm of upper-outer quadrant of left breast in female, estrogen receptor positive; Osteopenia due to cancer therapy; Other specified disorders of bone density and structure, other site Discharge Disposition: Home Social History Tobacco Use Types Packs/Day Years [...] on file documented as of this encounter Medications at Time of Discharge Medication Sig Dispensed Refills Start Date End Date ferrous sulfate EC (FeroSul) 325 mg (65 mg iron) DR tablet Take 325 mg by mouth See Admin Instructions. Every other day anastrozole (Arimidex) 1 mg tabletIndications: Malignant neoplasm of upper-outer quadrant of left breast in female, estrogen receptor positive Take 1 tablet by mouth daily. 90 tablet 3 11/10/2022 denosumab (PROLIA SUBQ) Inject subcutaneously Q6 Months. sennosides/docusat e sodium (SENNA WITH DOCUSATE SODIUM ORAL) Take 1 tablet by mouth nightly. hydroCHLOROthiazid e (Hydrodiuril) 12.5 mg Tablet Take 12.5 mg by mouth daily. omeprazole (PriLOSEC) 20 mg Capsule, Delayed Release(E.C.) Take 20 mg by mouth daily. Blood-Glucose Meter Misc 1 Application by [employer].(Non-Drug; Combo Route) route 3 times daily (before meals). 1 each 04/11/2020 vitamin E (vitamin E) 400 unit Capsule Take 1 capsule by mouth daily. 03/31/2020 acetaminophen (Tylenol) 500 mg Tablet Take 2 tablets by mouth every 6 hours as needed for Pain. 03/31/2020 aspirin EC 81 mg Tablet, Delayed Release (E.C.) Take 81 mg by mouth daily. b complex vitamins Capsule Take 1 capsule by mouth daily. pravastatin (Pravachol) 20 mg Tablet Take 20 mg by mouth daily. albuteroL 90 mcg/actuation HFA Aerosol Inhaler Inhale 1-2 puffs into the lungs every 4 hours as needed. 01/10/2020 Wixela Inhub 500-50 mcg/dose Disk with Device Inhale 1 puff into the lungs 2 times daily. 08/20/2019 cholecalciferol, Vitamin D3, 1,000 unit Capsule Take 4,000 Units by mouth daily. multivit,iron,mine rals/lutein (CENTRUM SILVER ULTRA WOMEN'S ORAL) Take 1 tablet by mouth daily. magnesium oxide 400 mg magnesium Capsule Take 1 capsule by mouth daily. fish oil-omega-3 fatty acids 1,000 mg Capsule Take 1 g by mouth daily. cholecalciferol, Vitamin D3, 10 mcg (400 unit) Capsule Take 1 capsule by mouth daily. 01/19/2023 erryki-amvndxwl-ud ylase (Ryan) 24,000-76,000 -120,[address] capsule TAKE 3 CAPSULES BY MOUTH WITH BREAKFAST , 4 CAPSULES WITH LUNCH AND DINNER. TAKE 1 CAPSULE WITH SNACKS TWICE DAILY (13 CAPSULES/DAY) 1170 capsule 3 09/08/2022 01/09/2023 CALCIUM CARBONATE-VITAMIN D3 ORAL Take 1 tablet by mouth daily. 01/19/2023 documented as of this encounter Plan of Treatment Upcoming Encounters Date Type Department Care Team (Late st Contact Info) Description 11/02/2023 1:00 PM EDT Office Visit Hematology/Oncology at [address] [phone] Mary Nails APRN [address] [place] [address] DR MEDICAL ONCOLOGY [place], [place] [id number] 11/02/2023 1:30 PM EDT Infusion Hematology Oncology at [address] [phone] Scheduled Orders Name Type Priority Associated Diagnoses Orde r Schedule DXA Bone densitometry Complete Imaging Routine Malignant neoplasm of upper-outer quadrant of left breast in female, 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 ??Post Whipple. 2. ??Unchanged 0.5 cm cystic lesion in the pancreatic tail. 3. ??Benign-appearing subcentimeter liver lesions stable since 2019. Thank you for letting us participate in the care of this patient. ??If you are a health care provider and have any questions regarding this report, please contact the number below. ??For patients who have questions please contact the health health care facility administrator that requested your imaging first. ? Electronically signed by: Jayro Maier MD, [facility] ([phone]), at 01/04/2023 8:45 AM Narrative 01/04/2023 8:45 AM EDT EXAMINATION: CT ABDOMEN W CONTRAST CLINICAL HISTORY: PANCREATIC PROTOCOL CT to eval remnant pancreas for recurrent IPMN - history of robotic whipple 03/2020 TECHNIQUE: Helical CT of the abdomen following the intravenous administration of 66.0 ml of OMNIPAQUE 350.00 mg/ml. Water administered as oral contrast. COMPARISON: CT abdomen 12/28/2021 FINDINGS: Lower chest: Left atrial cardiac enlargement. Liver: Normal size and attenuation. Hypoattenuating lesion in the posterior right lobe is unchanged from 01/28/2020, 0.8 cm on series 4 image 44, probable cyst versus hemangioma. Arterial phase hyperenhancing lesion in segment VII (0.5 cm on series 3 image 36), unchanged since 01/28/2020. This is likely a small flash filling hemangioma. No new or enlarging lesions. Bile ducts: Nondilated. Gallbladder: Absent Pancreas: Prior Whipple operation. Atrophic remnant body and tail. No ductal dilatation. 0.5 cm hypoattenuating lesion in the tail on series 4 image 50, unchanged from the comparison CT but new since 12/01/2020. Spleen: Normal. Adrenals: Normal. Kidneys: Unchanged hypoattenuating lesions too small to characterize but suspected cysts. No suspicious lesions. Vasculature: No abdominal aortic aneurysm. Lymph Nodes: No enlarged lymph nodes. Bowel: Moderate gastric distention. No gastrojejunal stricture. Peritoneum and retroperitoneum: No nodules or masses. No free fluid or loculated fluid collection. No pneumoperitoneum. No mesenteric inflammation. Abdominal wall: Normal. Osseous structures: No suspicious lesions. Mild anterior wedge deformity of T10 unchanged since at least 2020. Procedure Note Jayro Maier MD - 01/04/2023 EXAMINATION: CT ABDOMEN W CONTRAST CLINICAL HISTORY: PANCREATIC PROTOCOL CT to eval remnant pancreas forrecurrent IPMN - history of robotic whipple 03/2020 TECHNIQUE: Helical CT of the abdomen following the intravenousadministration of 66.0 ml of OMNIPAQUE 350.00 mg/ml. Water administered as oral contrast. COMPARISON: CT abdomen 12/28/2021 FINDINGS: Lower chest: Left atrial cardiac enlargement. Liver: Normal size and attenuation. Hypoattenuating lesion in theposterior right lobe is unchanged from 01/28/2020, 0.8 cm on series 4 image 44,probable cyst versus hemangioma. Arterial phase hyperenhancing lesion in segment VII (0.5 cm on series 3image 36), unchanged since 01/28/2020. This is likely a small flash filling hemangioma. No new or enlarging lesions. Bile ducts: Nondilated. Gallbladder: Absent Pancreas: Prior Whipple operation. Atrophic remnant body and tail. Noductal dilatation. 0.5 cm hypoattenuating lesion in the tail on series 4 image50, unchanged from the comparison CT but new since 12/01/2020. Spleen: Normal. Adrenals: Normal. Kidneys: Unchanged hypoattenuating lesions too small to characterize but suspected cysts. No suspicious lesions. Vasculature: No abdominal aortic aneurysm. Lymph Nodes: No enlarged lymph nodes. Bowel: Moderate gastric distention. No gastrojejunal stricture. Peritoneum and retroperitoneum: No nodules or masses. No free fluid orloculated fluid collection. No pneumoperitoneum. No mesenteric inflammation. Abdominal wall: Normal. Osseous structures: No suspicious lesions. Mild anterior wedge deformityof T10 unchanged since at least 2020. IMPRESSION 1. Post Whipple. 2. Unchanged 0.5 cm cystic lesion in the pancreatic tail. 3. Benign-appearing subcentimeter liver lesions stable since 2019. Thank you for letting us participate in the care of this patient. If youare a health care provider and have any questions regarding this report,please contact the number below. For patients who have questions please contactthe health health care facility administrator that requested your imaging first. 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 Disorder of bone and cartilage, unspecified Other specified disorders of bone density and structure, other site documented in this encounter Administered Medications Inactive Administered Medications - up to 3 most recent administrations Medication Order MAR Action Action Date Dose Rate Site iohexoL (Omnipaque) (350 mg/mL) solution 0-200 mL 0-200 mL, Intravenous, ONCE PRN, 1 dose, Starting on Mon01/03/23 at 1425, Until Mon01/03/23 at 1426, Per Protocol, Warning Vesicant/Irritant Medication , Radiology Contrast, Routine Given 01/03/2023 2:26 PM EDT 65 mLs documented in this encounter Care Teams Overlock Operator Relationship Specialty Start Date End Date Zeny James APRN [address] [place] [address] PCP - General Family Medicine 09/23/19 documented as of this encounter
--- OUTSIDE RECORDS SUMMARY | 2023-11-02 02:26 | XMS_ITS | Encounter Summary ---
Author Organization [facility] Address [facility] [place] [address] Care Team Providers Care National Sales Associate Name Role Phone Zeny James APRN Primary Care Provider Encounter Details Date Type Department Care Team (Late st Contact Info) Description 01/09/2023 Orders [place] [phone] Regino Carolina MD [facility] [place] [place] [address] Social History Tobacco Use Types Packs/Day Years [...] place to sleep or slept in a [facility] (including now)? No 04/29/2021 Sex and Gender Information Value Date Recorded Sex Assigned at Not on file Gender Identity Not on file Sexual Orientation Not on file documented as of this encounter Plan of Treatment Upcoming Encounters Date Type Department Care Team (Late st Contact Info) Description 11/02/2023 1:00 PM EDT Office Visit Hematology/Oncology at [address] [phone] Mary Nails APRN [address] [place] [address] [place] [address] 11/02/2023 1:30 PM EDT Infusion Hematology Oncology at [address] [phone] documented as of this encounter Visit Diagnoses Not on filedocumented in this encounter Care Teams National Sales Associate Relationship Specialty Start Date End Date Zeny James APRN [address] [place] [address] PCP - General Family Medicine 09/23/19 documented as of this encounter
--- OUTSIDE RECORDS SUMMARY | 2023-11-02 02:26 | XMS_ITS | Encounter Summary ---
Author Organization Formerly [facility] Address [facility] [place] [address] Care Team Providers Care Professional Athletes Coach Name Role Phone Zeny James APRN Primary Care Provider [phone] Reason for Referral * Consultation (Routine) - Closed Specialty Diagnoses / Procedures Referred By Nir potts Referred To Contact Dermatology Diagnoses Basal cell carcinoma of nose Estela Velasquez MD [facility] [address] [address] Jayro Mack MD [facility] [address] [place] [address] Referral ID Status Reason Start Date Expiration Date V isits Requested Visits Authorized [id number] Closed Consult, Test & Treat 07/12/2023 07/11/2024 1 1 Encounter Details Date Type Department Care Team (Latest Contact Info) Description 07/12/2023 Transcribe Orders Dermatology at [facility] [address] [place] [address] Estela Velasquez MD [facility] [address] [place] [address] Basal cell carcinoma of nose Social History Tobacco Use Types [...] place to sleep or slept in a penitentiary (including now)? No 04/29/2021 Sex and Gender Information Value Date Recorded Sex Assigned at Not on file Gender Identity Not on file Sexual Orientation Not on file documented as of this encounter Plan of Treatment Upcoming Encounters Date Type Department Care Team (Late st Contact Info) Description 11/02/2023 1:00 PM EDT Office Visit Hematology/Oncology at [address] [phone] Mary Nails APRN [address] [place] [address] [place] [address] 11/02/2023 1:30 PM EDT Infusion Hematology Oncology at [address] [phone] Scheduled Referrals Name Type Priority Associated Diagnoses Order Schedule Referral to Dermatology Outpatient Referral Routine Basal cell carcinoma of nose Ordered: 07/12/2023 documented as of this encounter Visit Diagnoses Diagnosis Basal cell carcinoma of nose Basal cell carcinoma of skin of other and unspecified parts of face documented in this encounter Care Teams Professional Athletes Coach Relationship Specialty Start Date End Date Zeny James APRN [address] [place] [address] PCP - General Family Medicine 09/23/19 documented as of this encounter
--- OUTSIDE RECORDS SUMMARY | 2023-11-02 02:26 | XMS_ITS | Encounter Summary ---
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 No 04/29/2021 Sex and Gender Information Value Date Recorded Sex Assigned at Not on file Gender Identity Not on file Sexual Orientation Not on file documented as of this encounter Plan of Treatment Upcoming Encounters Date Type Department Care Team (Late st Contact Info) Description 11/02/2023 1:00 PM EDT Office Visit Hematology/Oncology at [address] [phone] Mary Nails APRN [address] [place] [address] [place] [address] 11/02/2023 1:30 PM EDT Infusion Hematology Oncology at [address] [phone] documented as of this encounter Procedures Procedure Name Priority Date/Time Associated Diagnosis Comments HEMOGRAM Routine 01/03/2023 12:32 PM EDT History of pancreatectomy DIFFERENTIAL, AUTOMATED Routine 01/03/2023 12:32 PM EDT History of pancreatectomy HC VENIPUNCTURE Routine 01/03/2023 12:32 PM EDT History of pancreatectomy HC IRON BINDING CAPACITY STAT 01/03/2023 12:32 PM EDT Iron deficiency anemia due to chronic blood loss HC PCH VITAMIN A STAT 01/03/2023 12:3 2 PM EDT History of pancreatectomy HC VITAMIN D TOTAL-25 HYDROXY STAT 01/03/2023 12:32 PM EDT Vitamin D deficiency HC CBC,PLT & AUTO DIFF Routine 01/03/2023 12:32 PM EDT History of pancreatectomy HC PCH VITAMIN E STAT 01/03/2023 12:3 2 PM EDT History of pancreatectomy HC FOLATE, SERUM Routine 01/03/2023 12:3 2 PM EDT History of pancreatectomy HC FERRITIN, SERUM STAT 01/03/2023 12 :32 PM EDT Iron deficiency anemia due to chronic blood loss HC VITAMIN B12 SERUM STAT 01/03/2023 12:32 PM EDT History of pancreatectomy COMPREHENSIVE METABOLIC PANEL (NON-FASTING) Routine 01/03/2023 12:32 PM EDT History of pancreatectomy documented in this encounter Results * Differential, Automated (01/03/2023 12:32 PM EDT) Neutrophils % 67.7 % [facility] Neutr Abs (ANC) 5.27 1.70 - 6.10 x10(3)/[facility] Lymphocytes % 22.3 % [facility] Lymphocytes Abs 1.7 0.9 - 3.2 x10(3)/[facility] Monocytes % 7.4 % [facility] Monocyte Abs 0.6 0.3 - 0.9 x10(3)/[facility] Eosinophils % 1.7 % [facility] Eosinophils Abs 0.1 0.0 - 0.4 x10(3)/[facility] Basophils % 0.8 % [facility] Basophils Abs 0.1 0.0 - 0.1 x10(3)/[facility] Immature Gran % 0.10 % [facility] Comment: Immature granulocytes(IG's)percentage and absolute count will include metamyelocytes, myelocytes, and promyelocytes. Blood smears from CBCs yielding IG's will be scanned manually for concordance. If this scan disagrees with the automated IG or if promyelocytes are noted, a manual differential will be performed. Nory Gran Abs 0.01 0.00 - 0.04 x10(3)/[facility] Blood 01/03/2023 12:3 2 PM EDT 01/03/2023 12:39 PM EDT Narrative Resulting Agency Comment Spec In Lab Regino Carolina MD HEMATOLOGY ORDERAB LES [facility] [place] [address] * Hemogram (01/03/2023 12:32 PM EDT) WBC 7.8 4.0 - 9.5 x10(3)/[facility] RBC 4.49 4.00 - 5.21 x10(6)/[facility] Hemoglobin 13.8 11.7 - 15.5 g/dL [facility] Hematocrit 41.4 35.7 - 45.8 % [facility] MCV 92.2 82.6 - 94.4 [facility] MCH 30.7 27.1 - 32.0 pg [facility] MCHC 33.3 31.7 - 35.0 g/dL [facility] Platelets 310 145 - 357 x10(3)/[facility] RDWSD 42.7 37.0 - 46.0 [facility] RDWCV 12.6 11.5 - 14.1 % [facility] MPV 9.7 7.6 - 12.9 [facility] nRBC % Auto 0.0 % [facility] nRBC Abs Auto 0.000 0.000 - 0.000 x10(3)/[facility] Blood 01/03/2023 12:3 2 PM EDT 01/03/2023 12:39 PM EDT Narrative Resulting Agency Comment Spec In Lab Regino Carolina MD HEMATOLOGY ORDERAB LES Performing Organization Address [facility]/ZIP Co de Phone Number [facility] [place] [address] * Iron and TIBC (01/03/2023 12:32 PM EDT) Iron 148 30 - 150 mcg/dL [facility] TIBC 342 250 - 450 mcg/dL [facility] Iron Saturation 43 20 - 50 % [facility] Blood 01/03/2023 12:3 2 PM EDT 01/03/2023 12:39 PM EDT Narrative Resulting Agency Comment Spec In Lab Regino Carolina MD CHEMISTRY ORDERABL ES Performing Organization Address [facility] Co de Phone Number [facility] [place] [address] * Ferritin (01/03/2023 12:32 PM EDT) [facility] Ferritin 33 30 - 400 ng/mL [facility] Comment: Pediatric reference ranges not verified at [facility], interpret with caution. Reference ranges for females greater than 50 years of age approach values for men, i.e., 30-400 ng/mL. Blood 01/03/2023 12:3 2 PM EDT 01/03/2023 12:39 PM EDT Narrative Resulting Agency Comment Spec In Lab Regino Carolina MD CHEMISTRY ORDERABL ES Performing Organization Address [facility]/ZIP Co de Phone Number [facility] [place] [address] * Vitamin A (01/03/2023 12:32 PM EDT) [facility] Vitamin A 45.2 32.5 - 78.0 mcg/dL [facility] Comment: ADDITIONAL INFORMATION This test was developed and its performance characteristics determined by [facility] in a manner consistent with CLIA requirements. This test has not been cleared or approved by the U.S. Food and Drug Administration. Test Performed by: [facility] [place] [address] Entry Engineer: Denzel Angel M.D. Ph.D.; CLIA# [id number] Blood 01/03/2023 12:3 2 PM EDT 01/03/2023 3:06 PM EDT Narrative Resulting Agency Comment Spec In Lab Regino Carolina MD CHEMISTRY ORDERABL ES Performing Organization Address [facility] Co de Phone Number [facility] [place] [address] * Vitamin E (01/03/2023 12:32 PM EDT) [facility] Vitamin E 9.3 5.5 - 17.0 mg/L [facility] Comment: ADDITIONAL INFORMATION This test was developed and its performance characteristics determined by [facility] in a manner consistent with CLIA requirements. This test has not been cleared or approved by the U.S. Food and Drug Administration. Test Performed by: [facility] [place] [address] Entry Engineer: Denzel Angel M.D. Ph.D.; CLIA# [id number] Blood 01/03/2023 12:3 2 PM EDT 01/03/2023 3:08 PM EDT Narrative Resulting Agency Comment Spec In Lab Regino Carolina MD CHEMISTRY ORDERABL ES Performing Organization Address [facility] Co de Phone Number [facility] [place] [address] * Vitamin B12 (01/03/2023 12:32 PM EDT) Pathologist [facility] Vitamin B-12 831 232 - 1,245 pg/mL [facility] Blood 01/03/2023 12:3 2 PM EDT 01/03/2023 12:39 PM EDT Narrative Resulting Agency Comment Spec In Lab Regino Carolina MD CHEMISTRY ORDERABL ES [facility] [place] [address] * (ABNORMAL) Comprehensive metabolic panel (non-fasting) (01/03/2023 12:32 PM EDT) [facility] Glucose Lvl 155 65 - 199 mg/dL [facility] Comment:Diabetes: >=200 mg/d L plus symptoms BUN 16 8 - 18 mg/dL [facility] Creatinine 0.54(L) 0.70 - 1.20 mg/dL [facility] Sodium 140 135 - 145 mmol/L [facility] Potassium 4.3 3.5 - 5.0 mmol/L [facility] Comment: Please note: ??Patients with WBC >100,000 may have falsely elevated Potassium levels. ??For accurate Potassium quantification in these patients send serum separator tube (gold top) for subsequent determinations. ??Contact the Clinical Chemistry Laboratory if there are any questions. Chloride 102 98 - 107 mmol/L [facility] CO2 26 22 - 31 mmol/L [facility] Anion Gap 12 5 - 15 mmol/L [facility] Calcium 8.6 8.5 - 10.5 mg/dL [facility] Total Protein 6.5 6.1 - 8.0 g/dL [facility] Albumin 4.4 3.2 - 5.2 g/dL [facility] AST 37(H) 0 - 30 unit/L [facility] ALT 53(H) 0 - 30 unit/L [facility] Alk Phos 137(H) 35 - 105 unit/L [facility] Total Bilirubin 0.5 0.2 - 1.3 mg/dL [facility] Estimated GFR 95 >=60 mL/min/1. 73 m?? [facility] Comment: This patient's estimated GFR was calculated using the 2020 CKD-EPI equation. The estimated GFR can vary from the measured GFR by up to 30% in the absence of rapidly changing kidney function. Assessment of the estimated GFR is not appropriate when creatinine concentrations are rapidly changing. For clinical situations in which a more precise estimate of GFR is necessary, consider alternative methods of GFR estimation such as a 24-hour urine creatinine clearance. Assignment of CKD stage 1-5 for patients with an eGFR near the transition point between stages may be based on clinical assessment of muscle mass and symptoms in addition to eGFR. Blood 01/03/2023 12:3 2 PM EDT 01/03/2023 12:39 PM EDT Narrative Resulting Agency Comment Spec In Lab Regino Carolina MD CHEMISTRY ORDERABL ES Performing Organization Address City/[facility]/ZIP Co de Phone Number [facility] [address] * Folate, serum (01/03/2023 12:32 PM EDT) Folate Lvl 18.8 4.8 - 24.2 ng/mL [facility] Blood 01/03/2023 12:3 2 PM EDT 01/03/2023 12:39 PM EDT Narrative Resulting Agency Comment Spec In Lab Regino Carolina MD CHEMISTRY ORDERABL ES [facility] [place] [address] * (ABNORMAL) Vitamin B1, whole blood (01/03/2023 12:32 PM EDT) Vit B1 Lvl WB 185(H) 70 - 180 nmol/L [facility] Comment: ADDITIONAL INFORMATION This test was developed and its performance characteristics determined by [facility] in a manner consistent with CLIA requirements. This test has not been cleared or approved by the U.S. Food and Drug Administration. Test Performed by: [facility] [address] [place] [address] Entry Engineer: Denzel Angel M.D. Ph.D.; CLIA# [id number] Blood 01/03/2023 12:3 2 PM EDT 01/03/2023 3:21 PM EDT Narrative Resulting Agency Comment Spec In Lab Regino Carolina MD CHEMISTRY ORDERABL ES Performing Organization Address City/[facility]/ZIP Co de Phone Number [facility] [place] [address] * Vitamin D, 25-Hydroxy (01/03/2023 12:32 PM EDT) 25-OH Vit D Total 27 21 - 100 ng/mL [facility] 25-OH Vit D Interp Insufficient [facility] Blood 01/03/2023 12:3 2 PM EDT 01/03/2023 12:39 PM EDT Narrative Resulting Agency Comment Spec In Lab Regino Carolina MD CHEMISTRY ORDERABL ES Performing Organization Address City/[facility]/ZIP Co de Phone Number [facility] [place] [address] documented in this encounter Visit Diagnoses Diagnosis Vitamin D deficiency Unspecified vitamin D deficiency 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
--- OUTSIDE RECORDS SUMMARY | 2023-11-02 02:26 | XMS_ITS | Encounter Summary ---
Author Organization [facility] Address [facility] [place] [address] Care Team Providers Care Public Health Administrator Name Role Phone Zeny James APRN Primary Care Provider [phone] Reason for Visit * Consultation (Routine) - Closed Specialty Diagnoses / Procedures Referred By Nir potts Referred To Contact Dermatology Diagnoses Basal cell carcinoma of nose Estela Velasquez MD [facility] [address] [place] [address] Jayro Mack MD [facility] [address] [place] [address] Referral ID Status Reason Start Date Expiration Date V isits Requested Visits Authorized [id number] Closed Consult, Test & Treat 07/12/2023 07/11/2024 1 1 Encounter Details Date Type Department Care Team (Latest Contact Info) Description 09/07/2023 11:00 AM EDT Procedure visit Dermatology at [facility] [address] [place] [address] Jayro Mack MD [facility] [address] [place] [address] Basal cell carcinoma (BCC) of right side of nose Social History [...] on file documented as of this encounter Patient Instructions * Patient Instructions* Rosa Gomez LPN - 09/07/2023 11:00 AM EDT Your staff Mohs surgeon today was Jayro Mack MD, PhD. GRAFT CLOSURE Part of all of your wound(s) was repaired by a graft. This means that skin was removed from anotherlocation (donor site) and used to stitch the wound created by your skin cancer surgery. A graft is performed when alternative procedures such as [id number] stitching is not optimal. Your graft may be closed using all absorbable suture, sutures that need to be removed or a combination of both. Youwill be instructed upon discharge if a suture removal appointment is necessary. Caring for a graft properly is very important because the graft relies on blood supply from its newlocation to survive and heal properly. The most important thing in helping a graft heal fully is toavoid picking off any scabs, and to keep the area covered with copious amounts of topical petrolatum (such as Vaseline or Aquaphor). See specific instructions for wound care below. Things to purchase for wound care: -Nonstick gauze -A tube or tub of petrolatum jelly (fragrance-free, no dye, not lotion) -paper tape (especially if you are sensitive to adhesives) or bandages -cotton swabs -gloves (optional) -Dial or other antibacterial liquid soap Wound Care Gently remove your initial bandage after 4 days ON YOUR GRAFT. The graft will appear discolored forseveral weeks, either dark purple or pale in color. The DONOR SITE (In front of the ear) bandage can be removed after 4 days. Donor site was closed using sutures. This requires daily wound care of washing with soapy water, using a Q-tip apply a layer of Vaseline and a small bandage, once daily for one week, If your initial bandage(s) only stayed on for 24 hours (for example, falls off sooner), this is okay. Begin would care sooner, as below. Change your bandage once a day, or whenever it becomes wet or soaks through). You want to continue bandaging daily until your graft fully heals. This is a minimum of one week, but ideally continued until the graft has completely healed. The timeline for a graft to heal can range from 1 week to 8 weeks; you will continue wound care until healing is complete. For bandage changes: Wash hands with soap and water, or use gloves. Clean the surgical area with cotton-tipped swabs or soft gauze dipped in soapy water (recommend liquid soap in clean room temperature water). Roll the cotton swab over the incision with soapy water, then with plain water, and then gently pat dry. Do not scrub the area with a washcloth. Do not pick off scabs. Do not put direct shower water pressure onto your wound. Avoid direct water pressure fromthe shower on your graft site. It is okay to allow soapy water to run over your wound in the shower, however. If you cannot remove any bloody or crusted areas, you may soak the area with wet gauze first for 15to 20 minutes to help soften it Pat the area dry with clean gauze or cotton swabs. Do not rub. Use a cotton swab to apply a generous layer of petrolatum over the graft site. Avoid double dipping. After applying petrolatum, use a clean nonstick gauze or other nonstick dressing, such as Telfa. Secure the bandage with paper tape . Continue this wound care daily until wee see you back. After Surgery Avoid tobacco, smoking/vapors, cigars, and cannabis (marijuana) for at least 3 weeks after your surgery. These prevent proper healing and lead to worse scarring. Cutting back on tobacco is helpful ifyou cannot abstain completely. Do not participate in athletic activities for 1 week, unless you were told a different timeline during your visit. Athletic activity is a relative term, but this is considered to be anything that could potentially raise your heartrate or blood pressure. Elevating your heart rate and blood pressure increases the risk of swelling, bleeding, wound opening, and it could lead to worse scarring. Walking at a leisurely pace is fine for most people, but not if you are walking for the purpose of exercise. When in doubt, take it easy or call us. Do not lift anything heavier than 10 pounds for the first week unless told differently. Some weight calculator may need to be delayed or delegated such as vacuuming, mowing the lawn, snow shoveling, or caring for young children that need to be carried/lifted. Working any major muscle groups increases your heart rate and can increasing bleeding. Avoid swimming, hot tubs, and direct water pressure for 3 weeks after surgery. You may shower, however, once your initial bandage comes off in 48 hours. Avoid antibiotic ointments such as triple antibiotic creams. Whenever possible, it is helpful to take photographs with your camera or cell phone of any problemsor concerns you see with your wound. We often ask for photos when you call with questions. Starting 2 months following surgery, you can begin firm massage to any areas of firm scar along your incision to soften the scar and reduce bumpiness. Do this 3 times per day, 3 minutes each time. Donot start massage before 2 months. Your wound will appear almost completely healed soon after sutures are removed (about 1 week), but incisions can remain bright red for several weeks. Then the scarring and healing process continues under the skin for 6 months until to 2 years. The scar may become less red, less firm, and more subtle during this time; please note that the rate of improvement varies depending on the person. Most redness, discoloration, bumpiness resolves by 6 months, and most patients will look presentable withina few weeks after surgery. Keep your follow-up appointments and make sure to continue to have your skin checked, as often as is recommended by your film library clerk, for new skin cancers. This is once per year for most patients. You can expect your scar to be red for several weeks with gradual fading of the redness. Your scar will also be raised and lumpy until the dissolvable sutures under the skin get absorbed by your bodywhich can take 3-4 months. The scar will flatten eventually. If you have a skin condition called rosacea, the redness can last long-term, or you can get an increased appearance of red vessels to the skin. The appearance of vessels slightly improves, but tends to respond well to laser treatments. Occasionally, about 10-20% of the time on the face, the stitches under the skin can spit out of the incision to the surface. It can start out looking like a pimple or blemish directly on your incision. Sometimes you can feel something poking through the incision. It can mimic a small area of infection, so please let us know before you go to another provider for antibiotics. This means that the suture may need to be trimmed or removed when you return for your wound check. This typically occurs a few weeks after surgery if it does occur. To optimize your scar, and best cosmetic result, please avoid direct sunlight to your incision for the first 6 months following surgery. UV ray exposure to your incision may cause the redness to lastlonger, or to cause permanent darkening of your scar. You can avoid sun by covering your incision with a bandage when outdoors, wearing broad-brimmed hats, and wearing SPF 30 to 50 sunscreen (broad spectrum). Your incision may still be healing up to 2 weeks after surgery. Because of this, avoid make-up and sunscreen until approximately 2 weeks after surgery. You can begin sooner if your skin edges look completely sealed. Avoid applying over graft site until it is fully healed, this may be several weeks. Any time you have skin surgery or any type of surgery, you can experience mild sensation loss (numbness) in the area of surgery. Massage starting at 8 weeks after surgery can help. Swelling and bruising is common, and expected, especially if your surgery site was on the forehead,cheeks, temples, nose, or eyelids. . Sometimes it can be quite profound, where the eyelids swell shut, or getting black eyes. This is especially true if you are on blood thinners such as aspirin. Swelling and bruising will peak at about 48 hours after surgery. Bruising and swelling will graduallyresolve. You can use ice packs or a bag of frozen peas for 15-20 minutes, 20 minutes off, up to 3-4times daily to areas of swelling on the face. Use caution not to put the icy item directly onto your incision, or directly in contact with your skin as this can damage skin. Avoid prolonged use more than 20 minutes. The best way to use ice packs is over the bandage, or using a light cloth/paper towel barrier between the ice pack and your skin. You can ice for as many days as needed until swellinghas resolved. Eyelid and lip swelling is typically the last type of swelling to resolve. Antibiotics: Keflex 500mg twice daily for 5 days If you were given antibiotic prescription, it is important to start them the evening of your surgery date. However, most patients do not need antibiotics after surgery. For pain: Most patients of different ages do not require pain medications. If you do feel soreness, throbbingor sharp pains, start by taking over the counter extra strength acetaminophen (up to 3000 mg in a 24 hour period). Generally, we like you to avoid NSAIDS (non-steroid anti-inflammatory drugs such as ibuprofen) for the first 48 hours after surgery as this can increase risk of bleeding. However, if acetaminophen is not helping with pain, you can alternate acetaminophen with ibuprofen or other NSAID. Ice packs over your bandage without getting your bandage wet can also help with pain and swelling.Frozen peas work well as ice packs. THIS IS AN EXAMPLE OF A PAIN TREATMENT SCHEDULE: 1) You can take 500 mg acetaminophen one tablet by mouth at 6:00pm. This is over the counter. 2) You can take 400 mg of ibuprofen two hours later, at 8:00 pm, or other NSAID such as naproxen, as long as it does not interact with your other medications and your other doctors have not told you to avoid this. This is over the counter. Check to see how many milligrams (mg) each of your ibuprofen tablets are. Most of the time, ibuprofen comes in 200 mg tablets, so 400 mg would mean taking two of these tablets or capsules. 3) You can take 500 mg of acetaminophen at 10:00 pm. Keep track of your total acetaminophen in a 24hour period as your maximum should be 3000 mg total in a 24 hour period of this medication. 4) At midnight, you can take another 400 mg of ibuprofen. 5) you can continue on this schedule over the next 2 days, making sure to keep tabs of your total acetaminophen. If you are still in pain after trying the above, please call us. When to call your surgeon: Fever of 100.4 degrees Fahrenheit or higher Bleeding not controlled with direct firm pressure to your wound. Bleeding is most common in the first 48 hours. Pain that is worsening and not relieved by over the counter medications such as acetaminophen (up to 3000 mg in a 24 hour period) Wound reopening after stitching Pus or bad odor from your wound Worsening redness and warmth around your wound If you think your surgery site is infected, please call us before seeking care or antibiotics from other providers Please call us before seeking care in an emergency room or primary care. If you do call, please leave your full name, phone number, date of , date of surgery, and medical record number if you have it. If after hours, please call the die press operator or [phone] and ask for the film library clerk on-call. If you have any non-urgent questions or concerns, please feel free to call my office or contact me through our patient portal, [employer], at [email or web address] How to contact us during business hours Dermatology at [facility] [address]: Mohs scheduling or Mohs follow-up appointments: [phone] documented in this encounter Progress Notes * Jayro Mack MD - 09/07/2023 11:00 AM EDT Images from the original note were not included. Summary of Procedure(s): Site: Right Nostril Tumor Type: Basal Cell Carcinoma Stages to clear tumor: Two Stages Repair: Full Thickness Skin Graft Images: The patient was asked to call with any issues and is aware that I am available 07/11 should questions arise. Please note that I have reviewed the preoperative checklist from today's nursing visit including relevant social history and medications. I have reviewed the preoperative photos if available and the biopsy report. VITAL SIGNS: There were no vitals taken for this visit. PHYSICAL EXAMINATION: General: patient is awake, alert, oriented and in no acute distress. Skin: Focused examination of surgical site(s) performed which shows a well healed biopsy site with surrounding poorly defined pearly plaque. PHYSICIAN REVIEW OF REPORTS, RECORDS, IMAGES: 1) The accompanying pathology report(s) associated with aforementioned biopsy slide(s) were/was also reviewed. Assessment: Linda Serrano is a 77 y.o. female presenting for: 1. Biopsy-proven Basal Cell Carcinoma ,superficial and early nodular patterns,located on the Right Nostril. Plan: 1. Findings from the biopsy report, today's clinical exam, and other pertinent details were reviewed with patient today. All questions were answered. 2. Discussed treatment options based on the above findings. We recommended Mohs micrographic surgery for treatment of this tumor. Mohs micrographic surgery was indicated due to patient, site and/or tumor characteristics (see operative report for specific indication). 3. We discussed risks, benefits, and alternative treatment options to the Mohs micrographic surgeryprocedure and pertinent information including but not limited to the following: Risks include bleeding, infection, scar, recurrence, incomplete tumor removal or inability to cure with surgery alone if the tumor features are more aggressive than the initial pathology indicates. Occasionally, additional adjuvant treatments may be recommended. Additional risks include large wound, prolonged wound and healing, pain, swelling, bruising, increased appearance of vessels or worsening erythema of baseline skin; more rarely risks include damage to underlying structures such as nerves, cartilage, or muscle which could lead to temporary or permanent loss of sensation or motor function. Benefit is precise tumor removal If reconstruction is performed, it is specific to the patient and defect. Discussed that the shape, size, depth of the wound is often not known until the tumor is cleared and thus the reconstruction options are sometimes not known until after tumor clearance. Occasionally,referrals to other providers may be recommended for reconstruction based on patient preference and need. Reviewed the pros and cons of common reconstructions used for this tumor type, size, and location, and that reconstruction may lead to change in appearance. Natural history of scar was discussed, including that the scar will continue to mature for 1-2 years. Recommended avoidance of special ointments or scar creams, and avoidance of direct sun exposure to the scar for optimal recovery. Reviewed that there are some aspects of cosmesis that are dependent on patient's characteristics such as age, skin laxity/texture factors, inflammatory skin diseases such as rosacea, prior surgery/radiation, degree of actinic damage, smoking status, strength of the patient's immune system, diligentwound care, medications, and genetics. Having Mohs surgery may lead to physical limitations for optimal healing, such as restricted physical activity and heavy lifting. 4. Signs and symptoms of skin cancer reviewed. Patient to report any new, changing, or symptomatic lesions and follow up with his or her film library clerk or other skin provider. 5. Discussed avoiding direct sun exposure to scars for best cosmetic result. Note initiated by Rosa GOMEZ LPN has performed the documentation for this encounter in the presence of and acting as a scribe for Dr. Mack I performed the above scribed service and agree with the accuracy of the documentation in this encounter. Reviewed and signed by: Jayro Mack MD PhD Mohs Micrographic Surgery and Dermatologic Oncology Department of Dermatology * Jayro Mack MD - 09/07/2023 11:00 AM EDT Mohs micrographic Surgery Operative Report Patient name: Linda Serrano : 1945 Date: 09/07/2023 Staff Surgeon and Pathologist: Jayro Mack MD PhD Nursing/Case Operator(s): Rosa Gomez BANKING PIN ADJUSTER, Rehab Aide (s): Gerber Joyner CMA Pre-operative diagnosis: Basal Cell Carcinoma,superficial and early nodular pattern Post-operative diagnosis: Basal Cell Carcinoma,superficial and early nodular pattern Location/Site: Right Nostril Procedure: Mohs micrographic surgery Indication(s) for Mohs micrographic surgery: Anatomic location for tissue conservation Stages: 2 Preoperative size of tumor: 0.5 x 0.4 cm Stage I The nature and purpose of the procedure, associated risks, possible consequences and complications,and alternative forms of treatment were explained in detail. We reviewed the possible repairs basedon the clinical appearance of tumor but discussed that often the repair options may not be known until the tumor has laury extirpated. Informed consent and permission to take photographs were obtained. The site was confirmed with the patient/authorized outside dealer sales representative/referring physician and/or a photograph form time of biopsy. A pre-operative time-out (procedural pause) was conducted with no unresolved discrepancies noted. Local anesthesia was obtained with 1.0 % lidocaine with 1:100,000 epinephrine. The surgical site was prepped and draped in the usual sterile manner. A 1-2 mm margin was excised around clinically evident tumor as a complete layer. Hemostasis was achieved by electrocoagulation. The excised tissue was oriented and divided into 2 sections, chromacoded, and submitted for frozen sections. The patient tolerated the procedure well and without complications. On my personal microscopic evaluation of the frozen sections, residual tumor was identified as NODULAR BASAL CELL CARCINOMA - Arising from the epidermis and extending into the dermis are irregularly shaped islands of basaloid keratinocytes. The cells have scant cytoplasm and round dark nuclei. The cells at the periphery of the islands display a palisaded arrangement. The islands are associated with a fibromyxoid stroma and there is cleft formation between some of the islands and stroma. on section A1 . Stage II The surgical site was re-anesthetized with 1.0 % lidocaine with 1:100,000 epinephrine, re-prepped and redraped in a sterile manner. The residual tumor was re-excised as a complete layer 2-3mm in thickness using the Mohs map to delineate area of residual tumor. Hemostasis was achieved with electrocoa gulation. The tissue was oriented and divided into 1 sections, chromacoded, and submitted for frozen sections. The patient tolerated the procedure well and without complications. On my personal microscopic evaluation of the frozen sections, no residual tumor was identified on the deep or outer border of the sections. Depth of excision perichondrium Final defect size: 1.0 x 0.8 cm OPERATIVE REPORT (REPAIR) Patient Name: Linda Serrano Age: 77 y.o. : 1945 Date: 09/07/2023 Staff Surgeon: Jayro Mack MD PhD Assistants: Diagnosis: Status post Mohs micrographic surgery defect/wound Site: Right Nostril Final Defect Size prior to repair: 1.0 x 0.8 cm Donor site: Right Nostril INDICATION: repair and caodaism of anatomy/function PROCEDURE: Full-thickness skin graft A graft was chosen as repair after discussing various repair options and pros and cons of those. Anesthesia with 1.0 % lidocaine with 1:100,000 epinephrine and another sterile prep were performed. Toavoid anatomical distortion, a template was made of the defect, and a full-thickness skin graft wascarefully planned and harvested from the Right Nasolabial Fold. The graft was defatted and trimmed to fit the defect. After hemostasis was obtained with electrocoagulation, the graft was sutured intoplace with 6-0 Prolene skin sutures. The donor area was converted to a fusiform defect. The deep tissues were apposed and sutured with 5.0 Monocryl sutures and the epidermal edges were approximated with 5-0 & 6-0 Prolene running and/or interrupted sutures . Final graft size: 1.0 x 1.0 cm. Estimated blood loss: Minimal. Complications: None. Wound care: Routine Preoperative medications: None Post-operative medications: Keflex 500mg twice daily for Follow-up: 2 weeks Total local anesthesia with 1.0 % lidocaine with 1:100,000 epinephrine used: 5cc Total local with 0.25% bupivacaine with 1:100,000 epinephrine used: None Note initiated by Rosa Gomez,UCHE has performed the documentation for this encounter in the presence of and acting as a scribe for Dr. Mack I performed the above scribed service and agree with the accuracy of the documentation in this encounter. Reviewed and signed by: Jayro Mack MD PhD Mohs Micrographic Surgery and Dermatologic Oncology Department of Dermatology [address] [phone] documented in this encounter Plan of Treatment Upcoming Encounters Date Type Department Care Team (Late st Contact Info) Description 11/02/2023 1:00 PM EDT Office Visit Hematology/Oncology at [address] [phone] Mary Nails APRN [address] [place] [address] MEDICAL ONCOLOGY [place], [place] [id number] 11/02/2023 1:30 PM EDT Infusion Hematology Oncology at [address] [phone] documented as of this encounter Visit Diagnoses Diagnosis Basal cell carcinoma (BCC) of right side of nose documented in this encounter Care Teams Public Health Administrator Relationship Specialty Start Date End Date Zeny James APRN [address] [place] [address] PCP - General Family Medicine 09/23/19 documented as of this encounter
--- OUTSIDE RECORDS SUMMARY | 2023-11-02 02:26 | XMS_ITS | Encounter Summary ---
Author Organization [facility] Address [facility] [place] [address] Care Team Providers Care Drying Unit Felting Machine Operator Name Role Phone Zeny James AUTOMATIC TRIMMING SEWER Primary Care Provider Encounter Details Date Type Department Care Team (Latest Contact Info) Description 11/10/2022 Travel Social History Tobacco Use Types Packs/Day [...] place to sleep or slept in a chcf (including now)? No 04/29/2021 Sex and Gender Information Value Date Recorded Sex Assigned at Not on file Gender Identity Not on file Sexual Orientation Not on file documented as of this encounter Plan of Treatment Upcoming Encounters Date Type Department Care Team (Late st Contact Info) Description 11/02/2023 1:00 PM EDT Office Visit Hematology/Oncology at [address] [phone] Mary Nails APRN [address] [place] [address] MEDICAL ONCOLOGY [place], [place] [address] 11/02/2023 1:30 PM EDT Infusion Hematology Oncology at [address] [phone] documented as of this encounter Visit Diagnoses Not on filedocumented in this encounter Care Teams Drying Unit Felting Machine Operator Relationship Specialty Start Date End Date Zeny James APRN [address] [place] [address] [address] [place] [address] PCP - General Family Medicine 09/23/19 documented as of this encounter
--- OUTSIDE RECORDS SUMMARY | 2023-11-02 02:26 | XMS_ITS | Encounter Summary ---
Author Organization [facility] [place] [address] Care Team Providers Care Television Installer Name Role Phone VasuZeny asntos JESUS ALBERTO Primary Care Provider Encounter Details Date Type Department Care Team (Late st Contact Info) Description 04/29/2023 Telephone Hematology/Oncology at [address] [phone] Rhona Hogan, JESUS ALBERTO [facility] DR HEMATOLOGY/[place] [address] Social History Tobacco Use Types Packs/Day Years [...] place to sleep or slept in a nursing home (including now)? No 04/29/2021 Sex and Gender Information Value Date Recorded Sex Assigned at Not on file Gender Identity Not on file Sexual Orientation Not on file documented as of this encounter Plan of Treatment Upcoming Encounters Date Type Department Care Team (Late st Contact Info) Description 11/02/2023 1:00 PM EDT Office Visit Hematology/Oncology at [address] [phone] Mary Nails SOAP DRIER OPERATOR [address] [place] [address] MEDICAL ONCOLOGY [place], [place] [address] 11/02/2023 1:30 PM EDT Infusion Hematology Oncology at [address] [phone] Scheduled Orders Name Type Priority Associated Diagnoses Orde r Schedule Comprehensive metabolic panel (non-fasting) Lab STAT Malignant neoplasm of left breast in female, estrogen receptor positive, unspecified site of breast 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 Osteopenia due to cancer therapy Expected: 05/30/2023, Expires: 04/29/2024 documented as of this encounter Visit Diagnoses Diagnosis Malignant neoplasm of left breast in female, estrogen receptor positive, unspecified site of breast alf current use of aromatase inhibitor Use of aromatase inhibitors 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
--- OUTSIDE RECORDS SUMMARY | 2023-11-02 02:26 | XMS_ITS | Encounter Summary ---
Author Organization [facility] Address [facility] [place] [address] Care Team Providers Care Lacquer Pin Press Operator Name Role Phone Zeny James APRN Primary Care Provider [phone] Reason for Visit * Reason Comments Injections * Treatment/Therapy Plan Authorization (Routine) - Authorized Specialty Diagnoses / Procedures Referred By Nir potts Referred To Contact Hematology and Oncology Diagnoses Malignant neoplasm of left breast in female, estrogen receptor positive, unspecified site of breast Osteopenia, unspecified location penitentiary current use of aromatase inhibitor Procedures TC DENOSUMAB, 1MG, INJECTION [id number] Jeffery Jama MD [facility] DR HEMATOLOGY/[place] [address] Jeffery Sanz MD [facility] HEMATOLOGY/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 OBJECTIVE LAB DATA: done today WNL REACTIONS (DESCRIPTION, TIME, INTERVENTION AND EFFECTIVENESS) none ASSESSMENT Linda Serrano was awake, alert and he tolerated treatment well. PLAN Return to clinic per routine. documented in this encounter Plan of Treatment Upcoming Encounters Date Type Department Care Team (Late st Contact Info) Description 11/02/2023 1:00 PM EDT Office Visit Hematology/Oncology at [address] [phone] Mary Nails APRN [address] [place] [address] DR MEDICAL ONCOLOGY [place], [place] [id number] 11/02/2023 1:30 PM EDT Infusion Hematology Oncology at [address] [phone] documented as of this encounter Visit Diagnoses Diagnosis Malignant neoplasm of left breast in female, estrogen receptor positive, unspecified site of breast Osteopenia, unspecified location penitentiary current use of aromatase inhibitor Use of aromatase inhibitors documented in this encounter Administered Medications Inactive Administered Medications - up to 3 most recent administrations Medication Order MAR Action Action Date Dose Rate Site denosumab (Prolia) (60 mg/mL) subcutaneous injection 60 mg 60 mg, Subcutaneous, ONCE, 1 dose, On Pamella 05/04/23 at 1045, Bring to room temperature 15-30 mins before administration. Monitor patients with severe impairment (CRCL less than 30 mL/minute or on dialysis) due to increased risk of hypocalcemia., Restricted to outpatient use. Requires P&T approval for inpatient use. Use in outpatient setting Given 05/04/2023 11:03 AM EST 60 mg Left Arm documented in this encounter Care Teams Lacquer Pin Press Operator Relationship Specialty Start Date End Date Zeny James APRN [address] [place] [address] PCP - General Family Medicine 09/23/19 documented as of this encounter
--- OUTSIDE RECORDS SUMMARY | 2023-11-02 02:26 | XMS_ITS | Encounter Summary ---
Author Organization [facility] Address [facility] [place] [address] Care Team Providers Care Tip Mender Name Role Phone Zeny James APRN Primary Care Provider Encounter Details Date Type Department Care Team (Late st Contact Info) Description 02/07/2023 Telephone Dermatology at [facility] [address] [place] [address] Jayro Mack MD [facility] DR [place] [address] Social History Tobacco Use Types Packs/Day Years [...] encounter Miscellaneous Notes * Telephone Encounter - Steph Garcia - 02/07/2023 8:28 AM EDT Linda Serrano is returning a pre-op call, please reach out to the patient at [phone]. documented in this encounter Plan of Treatment Upcoming Encounters Date Type Department Care Team (Late st Contact Info) Description 11/02/2023 1:00 PM EDT Office Visit Hematology/Oncology at [address] [phone] Mary Nails APRN [address] [place] [address] DR MEDICAL ONCOLOGY [place], [place] [id number] 11/02/2023 1:30 PM EDT Infusion Hematology Oncology at [address] [phone] documented as of this encounter Visit Diagnoses Not on filedocumented in this encounter Care Teams Tip Mender Relationship Specialty Start Date End Date Zeny James APRN [address] [place], [place] [address] PCP - General Family Medicine 09/23/19 documented as of this encounter
--- OUTSIDE RECORDS SUMMARY | 2023-11-02 02:26 | XMS_ITS | Encounter Summary ---
Author Organization [facility] Address [facility] [place] [address] Care Team Providers Care Integrated Circuit Ic Layout Designer Name Role Phone Zeny James APRN Primary Care Provider Encounter Details Date Type Department Care Team (Late st Contact Info) Description 07/12/2023 Telephone Dermatology at [facility] [address] [place] [phone] Estela Velasquez MD [facility] [address] [place] [address] Social History Tobacco Use Types Packs/Day Years [...] encounter Miscellaneous Notes * Telephone Encounter - Gila Dang - 07/12/2023 9:19 AM EDT Patient calling for biopsy results she can be reached at [phone] documented in this encounter Plan of Treatment Upcoming Encounters Date Type Department Care Team (Late st Contact Info) Description 11/02/2023 1:00 PM EDT Office Visit Hematology/Oncology at [address] [phone] Mary Nails APRN [address] [place] [address] MEDICAL ONCOLOGY [place], [place] [address] 11/02/2023 1:30 PM EDT Infusion Hematology Oncology at [address] [phone] documented as of this encounter Visit Diagnoses Not on filedocumented in this encounter Care Teams Integrated Circuit Ic Layout Designer Relationship Specialty Start Date End Date Zeny James APRN [address] [place] [address] PCP - General Family Medicine 09/23/19 documented as of this encounter
--- OUTSIDE RECORDS SUMMARY | 2023-11-02 02:26 | XMS_ITS | Encounter Summary ---
Author Organization [facility] [place] [address] Care Team Providers Care Boot And Shoe Repairman Name Role Phone ErikaZaydaZeny JESUS ALBERTO Primary Care Provider Encounter Details Date Type Department Care Team (Late st Contact Info) Description 12/22/2022 10:05 PM EDT Ancillary Procedure [place] [address] Zeny James APRN [address] [place], [place] [id number] Social History Tobacco Use Types Packs/Day Years [...] place to sleep or slept in a halfway (including now)? No 04/29/2021 Sex and Gender Information Value Date Recorded Sex Assigned at Not on file Gender Identity Not on file Sexual Orientation Not on file documented as of this encounter Plan of Treatment Upcoming Encounters Date Type Department Care Team (Late st Contact Info) Description 11/02/2023 1:00 PM EDT Office Visit Hematology/Oncology at [address] [phone] Mary Nails MECHANICAL DESIGN ENGINEER PRODUCTS [address] [place] [address] DR MEDICAL ONCOLOGY [place], [place] [id number] 11/02/2023 1:30 PM EDT Infusion Hematology Oncology at [address] [phone] documented as of this encounter Procedures Procedure Name Priority Date/Time Associated Diagnosis Comments FILM LIBRARY- STORAGE ONLY DXA IMAGES Routine 12/22/2022 10:01 PM EDT documented in this encounter Results * Film Library- Storage Only DXA Images (12/22/2022 10:01 PM EDT) Narrative MARY GRACE LUJAN - 12/22/2022 10:01 PM EDT This exam is auto-finalizing. It's purpose is for storage only. Zenyleann James APRN IMG FILM LIBRARY OR DERABLES TAI [place] documented in this encounter Visit Diagnoses Not on filedocumented in this encounter Care Teams Boot And Shoe Repairman Relationship Specialty Start Date End Date VasuirenaDelaney bentleyJESUS ALBERTO noriega [address] [place] [address] [address] [facility] 1 [place] [address] PCP - General Family Medicine 09/23/19 documented as of this encounter
--- OUTSIDE RECORDS SUMMARY | 2023-11-02 02:26 | XMS_ITS | Encounter Summary ---
Author Organization [facility] Address [facility] [place] [address] Care Team Providers Care Spanish Speaking Nanny Name Role Phone Zeny James TREE TOPPER Primary Care Provider Encounter Details Date Type Department Care Team (Latest Contact Info) Description 01/19/2023 Travel Social History Tobacco Use Types Packs/Day [...] place to sleep or slept in a m[facility] (including now)? No 04/29/2021 Sex and Gender Information Value Date Recorded Sex Assigned at Not on file Gender Identity Not on file Sexual Orientation Not on file documented as of this encounter Plan of Treatment Upcoming Encounters Date Type Department Care Team (Late st Contact Info) Description 11/02/2023 1:00 PM EDT Office Visit Hematology/Oncology at [address] [phone] Mary Nails APRN [address] [place] [address] MEDICAL ONCOLOGY [place], [place] [address] 11/02/2023 1:30 PM EDT Infusion Hematology Oncology at [address] [phone] documented as of this encounter Visit Diagnoses Not on filedocumented in this encounter Care Teams Spanish Speaking Nanny Relationship Specialty Start Date End Date Zeny James APRN [address] [place] [address] [address] [place] [address] PCP - General Family Medicine 09/23/19 documented as of this encounter
--- OUTSIDE RECORDS SUMMARY | 2023-11-02 02:26 | XMS_ITS | Encounter Summary ---
Author Organization [facility] Address [facility] [place] [address] Care Team Providers Care Director Of Vital Statistics Name Role Phone Zeny James APRN Primary Care Provider Encounter Details Date Type Department Care Team (Late st Contact Info) Description 03/01/2023 11:00 AM EST Office Visit Dermatology at [facility] [address] [place] [address] Jayro Mack MD [facility] DR MARCUS [place] [address] Encounter for removal of sutures Social History Tobacco Use Types Packs/Day Years [...] Progress Notes * Jayro Mack MD - 03/01/2023 11:00 AM EST Images from the original note were not included. Patient: Linda Serrano Date of . 1945 Today's Date: 03/01/2023 Linda Serrano is a 77 y.o. female here for suture removal, 14 days post op. Photograph: Well healing incision with no signs of infection. Plan: 1. Sutures removed today without complication. Continue daily wound care and Vaseline for 7 days. 2. Follow up with referring provider or bulk folder for skin exams. 3. Follow up with Dr. Mack: as needed Note initiated by LEE Thrasher LNA has performed the documentation for this encounter in the presence of and acting as a scribe for Dr. Mack I performed the above scribed service and agree with the accuracy of the documentation in this encounter. Reviewed and signed by: Jayro Mack Dermatology [facility] Jayro Mack MD PhD Mohs Micrographic Surgery and Dermatologic Oncology Department of Dermatology documented in this encounter Plan of Treatment Upcoming Encounters Date Type Department Care Team (Late st Contact Info) Description 11/02/2023 1:00 PM EDT Office Visit Hematology/Oncology at [address] [phone] Mary Nails APRN [address] [place] [address] MEDICAL ONCOLOGY [place], [place] [id number] 11/02/2023 1:30 PM EDT Infusion Hematology Oncology at [address] [phone] documented as of this encounter Visit Diagnoses Diagnosis Encounter for removal of sutures documented in this encounter Care Teams Director Of Vital Statistics Relationship Specialty Start Date End Date Zeny James APRN [address] [place] [address] PCP - General Family Medicine 09/23/19 documented as of this encounter
--- OUTSIDE RECORDS SUMMARY | 2023-11-02 02:26 | XMS_ITS | Encounter Summary ---
Author Organization [facility] Address [facility] [place] [address] Care Team Providers Care Supervisor Liquefaction Name Role Phone Zeny James APRN Primary Care Provider [phone] Encounter Details Date Type Department Care Team (Late st Contact Info) Description 01/31/2023 Notes Only Care Management [facility] [place] [phone] Maylin Dodge Social History Tobacco Use Types Packs/Day Years [...] as of this encounter Progress Notes * Maylin Dodge - 01/31/2023 3:09 PM EDT I sent the re-enrollment application for assistance with Creon to Dr.Kerrington Carolina for their signature and prescription. I will follow through with the remainder of the application once everythingis returned to me. This is for the 2023 enrollment year. documented in this encounter Plan of Treatment Upcoming Encounters Date Type Department Care Team (Late st Contact Info) Description 11/02/2023 1:00 PM EDT Office Visit Hematology/Oncology at [address] [phone] Mary Nails APRN [address] [place] [address] DR MEDICAL ONCOLOGY [place], [place] [address] 11/02/2023 1:30 PM EDT Infusion Hematology Oncology at [address] [phone] documented as of this encounter Visit Diagnoses Not on filedocumented in this encounter Care Teams Supervisor Liquefaction Relationship Specialty Start Date End Date Zeny James APRN [address] [place] [address] PCP - General Family Medicine 09/23/19 documented as of this encounter
--- OUTSIDE RECORDS SUMMARY | 2023-11-02 02:26 | XMS_ITS | Encounter Summary ---
Author Organization [facility] Address [facility] [place] [address] Care Team Providers Care Manufacturing Coordinator Name Role Phone Zeny James APRN Primary Care Provider Encounter Details Date Type Department Care Team (Late st Contact Info) Description 09/08/2023 Telephone Dermatology at [facility] [address] [place] [address] Jayro Mack MD [facility] DR MARCUS [place] [address] Social History Tobacco Use Types Packs/Day Years [...] encounter Miscellaneous Notes * Telephone Encounter - Malia Love - 09/08/2023 8:41 AM EDT Patient would like to speak with the nurse about her wound on the nose. She has a compression bandage on her nose. There is blood. Please call [phone]. documented in this encounter Plan of Treatment Upcoming Encounters Date Type Department Care Team (Late st Contact Info) Description 11/02/2023 1:00 PM EDT Office Visit Hematology/Oncology at [address] [phone] Mary Nails APRN [address] [place] [address] DR MEDICAL ONCOLOGY [place], [place] [address] 11/02/2023 1:30 PM EDT Infusion Hematology Oncology at [address] [phone] documented as of this encounter Visit Diagnoses Not on filedocumented in this encounter Care Teams Manufacturing Coordinator Relationship Specialty Start Date End Date Zeny James APRN [address] [place], [place] [address] PCP - General Family Medicine 09/23/19 documented as of this encounter
--- OUTSIDE RECORDS SUMMARY | 2023-11-02 02:26 | XMS_ITS | Encounter Summary ---
Author Organization [facility] [place] [address] Care Team Providers Care Marketing Lead Name Role Phone Zeny James APRN Primary Care Provider Encounter Details Date Type Department Care Team (Late st Contact Info) Description 01/09/2023 Telephone [place] [phone] Social History Tobacco Use Types Packs/Day Years [...] place to sleep or slept in a half-way (including now)? No 04/29/2021 Sex and Gender Information Value Date Recorded Sex Assigned at Not on file Gender Identity Not on file Sexual Orientation Not on file documented as of this encounter Miscellaneous Notes * Telephone Encounter - Aurelia Negrete RD - 01/09/2023 11:27 AM EDT Reviewed annual post hext labs to assess for micronutrient deficiencies. Recommend 4000 IU Vitamin D a day, current level at 27. Maricruz is taking 3000 IU Vitamin D a day. She also maintains on : Centrum Silver (25 mcg Vitamin D) Citracal Max Plus (25 mcg Vitamin D) Vitamin D3 25 mcg Fish oil 1000 mg Vitamin E 180 mg B complex with folic acid and vitamin C Mag 500mg Cranberry Probiotic Iron 65 mg Monday, Mon and Monday Creon 24: dosing three with meals and one with snack or 10/D, change in dosing (current prescription states 13 capsules a day) --requests to please change prescription/will need to have Dr Carolina signand fax paper copy to Jeremy CUETO. documented in this encounter Plan of Treatment Upcoming Encounters Date Type Department Care Team (Late st Contact Info) Description 11/02/2023 1:00 PM EDT Office Visit Hematology/Oncology at [address] [phone] Mary Nails APRN [address] [place] [address] DR MEDICAL ONCOLOGY [place], [place] [id number] 11/02/2023 1:30 PM EDT Infusion Hematology Oncology at [address] [phone] documented as of this encounter Visit Diagnoses Not on filedocumented in this encounter Care Teams Marketing Lead Relationship Specialty Start Date End Date Jairosheree JESUS ALBERTO Moura [address] [facility] 1 [place] [address] PCP - General Family Medicine 09/23/19 documented as of this encounter
--- OUTSIDE RECORDS SUMMARY | 2023-11-02 02:26 | XMS_ITS | Encounter Summary ---
Author Organization [facility] Address [facility] [place] [address] Care Team Providers Care Funeral Home Director Name Role Phone Zeny James APRN Primary Care Provider Reason for Visit * Reason Comments Follow-up Encounter Details Date Type Department Care Team (Late st Contact Info) Description 01/03/2023 3:30 PM EDT Office [place] [phone] Regino Carolina MD [facility] [place] [address] Exocrine pancreatic insufficiency Social History Tobacco Use Types Packs/Day Years [...] Sign Reading Time Taken Comments Blood Pressure 169/84 01/03/2023 3:36 PM EDT Pulse 75 01/03/2023 3:36 PM EDT Temperature 36.4 ??C (97.6 ??F) 01/03/2023 3:36 PM ED T Respiratory Rate 16 01/03/2023 3:36 PM EDT Oxygen Saturation 99% 01/03/2023 3:36 PM EDT Inhaled Oxygen Concentration - - Weight 47.5 kg (104 lb 11.2 oz) 01/03/2023 3:36 PM EDT Height 154.9 cm (5' 0.98) 01/03/2023 3:36 PM ED T Body Mass Index 19.79 01/03/2023 3:36 PM EDT documented in this encounter Progress Notes * Regino Carolina MD - 01/03/2023 3:30 PM EDT Surgical Oncology Office Note Date: 01/03/2023 Primary physician: Zeny James APRN Referring physician: Migue Urrutia MD Reason for evaluation: History of robotic whipple on 03/23/2020 for 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 Interval History: Mrs. Serrano is now a 77 year woman from [place], [place]. She presented to [facility] ED on 2019 with epigastric abdominal pain x1 day and anorexia symptoms. Blood work showed a normal white blood cell count of 11.7, hemoglobin 14.7, platelet 311. LFTs were all normal-albumin 4.2,total bilirubin 0.8, alkaline phosphatase 90, AST 29, ALT 38 and serum lipase was 164 (normal less than 393). Further work-up is detailed below. 2019 ultrasound showed a normal gallbladder with no stones or gallbladder wall thickening. CBDwas normal diameter. 2019 CT abdomen and pelvis showed a markedly dilated pancreatic duct but no obvious pancreaticmass. The bile duct was not dilated. She was admitted to the hospitalist service with a diagnosis of chronic pancreatitis and surgery was consulted with a plan to obtain an MRCP. 10/01/2019 MRA/MRCP showed exam is limited by patient motion. There is a small amount of fluid around the tail the pancreas. The pancreatic parenchyma again is noted to be atrophic. The pancreatic duct is dilated to 14 mm and shows multiple small outpouchings. No definite separate cyst is identified. No solid masses visible. The intrahepatic bile ducts as well as the common bile duct are not dilated. No gallstones are seen. 11/15/[address] Urrutia with endosonographic findings reviewed below: The pancreatic duct was diffusely dilated measuring up to 12 mm and transitioned to a less dilatedcaliber in the pancreatic head without definite stricture. Diagnostic needle aspiration for fluid was performed. Color Doppler imaging was utilized prior to needle puncture to confirm a lack of significant vascular structures within the needle path. One pass was made with the 25 gauge needle using a transduodenal approach. A stylet was used. The amount of fluid collected was 5 mL. The fluid was clear. Sample(s) were sent for amylase concentration, cytology and CEA. There was no sign of significant endosonographic abnormality in the common bile duct. The maximum diameter of the duct was 6 mm. Minimal debris in the gallbladder body. Impression: Endosonographic findings compatible with main duct IPMN; ERCP deferred; fluid sent for analysis. 11/15/2019 EUS/FNA of pancreatic duct/cyst fluid cytopathology per Acc# [id number] showed neoplastic Cells Present. Abundant macrophages, mixed leukocytes present and a single group of bland-appearing columnar cells. Cell block was examined. Note: The fluid CEA level is consistent with neoplastic process. 11/25/2019 surgical oncology consult. Maricruz was seen for surgery consultation. She was by herself. She described the episode that brought her to the ED at [facility] as the first time she is ever had any significant pain and she said it was pretty bad but I generally have this uncomfortable mass almost like an ache or a jab. It is not related to eating. She rated it as a 2-out of 10 and it seems to just resolve on its own. No relation to time of day or positional changes. She had no prior history of pancreatitis. No diabetes. Her normal weight was 125 pounds and she had lost about 10 pounds over the past several months and currently weighed 115 pounds. She described having no interest in food andsome early satiety symptoms but no nausea. She had 1 bowel movement a day but it is soft and sometimes diarrhea like. 11/25/2019 CA-19-9 elevated to 255. 12/05/2019 CT/PET no FDG avidity. 01/09/2020 she had a follow up with for her stage I ILC ER+, PA-, HER2-- IDC of the left breast. She has recovered fully from mastectomy and was seen by medical oncology with plan for aromatase inhibitor. No PMRT or chemotherapy indicated. OK to proceed with pancreas surgery. 01/09/2020 CA-19-9 was 24.6. This was down from 255 back in November and likely represents crossover of this tumor marker in the context of her inflammatory ductal carcinoma which was resected by Dr. Rivera back on 12/20/2019. 01/28/2020 CT abdomen with pancreatic protocol shows the massively dilated main duct IPMN extendingfrom the tail all the way to the head of the pancreas and you can see what looks like a small mass lesion at the ampulla but no peripancreatic adenopathy. 03/23/2020 she underwent robotic whipple. Discharged to home on POD#19. Post op course notable for post op ileus requiring reinsertion of NGT, EGD showed marginal ulcer at GJ and PICC TPN Pathology: 03/23/2020 Acc# [id number] Surgical Pathology DIAGNOSIS A - Portal vein lymph nodes: - One lymph node, negative for malignancy B - Head of pancreas, antrum, duodenum, & omentum: - Intraductal papillary mucinous neoplasm (IPMN) with high grade dysplasia, involving main and brunch ducts. - There is no evidence of invasive carcinoma. - Margins are negative for IPMN. C - Common hepatic artery lymph nodes: - Four lymph nodes negative for carcinoma. D - Gallbladder: - Gallbladder, negative for diagnostic abnormality. Objective: Vitals: 01/03/2023 she weighed 104 pounds. 12/28/2021 she weighed 107 pounds. 12/01/2020 she weighed 114 pounds. 09/30/2019 she weighed 113 pounds. 04/21/2019 she weighed 118 pounds. 01/28/2020 she weighed 123 pounds. 12/18/2019 she weighed 120 pounds. General: Maricruz looks great. She is by herself. Abdomen: Soft, non distended and nontender. The laparoscopic and robotic port scars are barely visible with no hernias. Extremities: No peripheral edema and symmetric bilaterally. Assessment and plans: Maricruz looks great. She is cut back the Creon from 4 with meals to 3 with mealsand seems to be doing overall pretty well. She occasionally will have worsening diarrhea type symptoms but overall seems to be managing things quite well with the Creon. The CT looks good. The pancreas quite atrophic though there is no ductal dilation or cyst to suggest recurrence of her IPMN. Otherwise the Whipple anatomy looks normal. Her blood work overall looks quite good as well. She is taking vitamin D supplements and her vitamin D levels are good. She is not anemic though her ferritin levels are little bit on the low side-I did not make any changes to her vitamins for example. All the other blood work looks pretty good. Her transaminases have all been mildly elevated and they are actually down compared to a year ago. Her alk phos which is also often elevated in the Whipple patient's is only mildly elevated and basicallystable in the post Whipple situation. It is great to see her doing so well. 01/03/2023 This note was created using [employer]) voice recognition software. Addendum: Recent Results (from the past 24 hour(s)) Vitamin D, 25-Hydroxy Result Value Ref Range 25-OH Vit D Total 27 21 - 100 ng/mL 25-OH Vit D Interp Insufficient Folate, serum Result Value Ref Range Folate Lvl 18.8 4.8 - 24.2 ng/mL Comprehensive metabolic panel (non-fasting) Result Value Ref Range Glucose Lvl 155 65 - 199 mg/dL BUN 16 8 - 18 mg/dL Creatinine 0.54 (L) 0.70 - 1.20 mg/dL Sodium 140 135 - 145 mmol/L Potassium 4.3 3.5 - 5.0 mmol/L Chloride 102 98 - 107 mmol/L CO2 26 22 - 31 mmol/L Anion Gap 12 5 - 15 mmol/L Calcium 8.6 8.5 - 10.5 mg/dL Total Protein 6.5 6.1 - 8.0 g/dL Albumin 4.4 3.2 - 5.2 g/dL AST 37 (H) 0 - 30 unit/L ALT 53 (H) 0 - 30 unit/L Alk Phos 137 (H) 35 - 105 unit/L Total Bilirubin 0.5 0.2 - 1.3 mg/dL Estimated GFR 95 >=60 mL/min/1.73 m?? Vitamin B12 Result Value Ref Range Vitamin B-12 831 232 - 1,245 pg/mL Ferritin Result Value Ref Range Ferritin 33 30 - 400 ng/mL Iron and TIBC Result Value Ref Range Iron 148 30 - 150 mcg/dL TIBC 342 250 - 450 mcg/dL Iron Saturation 43 20 - 50 % Hemogram Result Value Ref Range WBC 7.8 4.0 - 9.5 x10(3)/mcL RBC 4.49 4.00 - 5.21 x10(6)/mcL Hemoglobin 13.8 11.7 - 15.5 g/dL Hematocrit 41.4 35.7 - 45.8 % MCV 92.2 82.6 - 94.4 fL MCH 30.7 27.1 - 32.0 pg MCHC 33.3 31.7 - 35.0 g/dL Platelets 310 145 - 357 x10(3)/mcL RDWSD 42.7 37.0 - 46.0 fL RDWCV 12.6 11.5 - 14.1 % MPV 9.7 7.6 - 12.9 fL nRBC % Auto 0.0 % nRBC Abs Auto 0.000 0.000 - 0.000 x10(3)/mcL Differential, Automated Result Value Ref Range Neutrophils % 67.7 % Neutr Abs (ANC) 5.27 1.70 - 6.10 x10(3)/mcL Lymphocytes % 22.3 % Lymphocytes Abs 1.7 0.9 - 3.2 x10(3)/mcL Monocytes % 7.4 % Monocyte Abs 0.6 0.3 - 0.9 x10(3)/mcL Eosinophils % 1.7 % Eosinophils Abs 0.1 0.0 - 0.4 x10(3)/mcL Basophils % 0.8 % Basophils Abs 0.1 0.0 - 0.1 x10(3)/mcL Immature Gran % 0.10 % Nory Gran Abs 0.01 0.00 - 0.04 x10(3)/mcL documented in this encounter Plan of Treatment Upcoming Encounters Date Type Department Care Team (Late st Contact Info) Description 11/02/2023 1:00 PM EDT Office Visit Hematology/Oncology at [address] [phone] Mary Nails APRN [address] [place] [address] MEDICAL ONCOLOGY [place], [place] [address] 11/02/2023 1:30 PM EDT Infusion Hematology Oncology at [address] [phone] documented as of this encounter Visit Diagnoses Diagnosis Exocrine pancreatic insufficiency Other specified disease of pancreas documented in this encounter Care Teams Funeral Home Director Relationship Specialty Start Date End Date Zeny James APRN [address] [place] [address] [address] [place], [place] [address] PCP - General Family Medicine 09/23/19 documented as of this encounter
--- OUTSIDE RECORDS SUMMARY | 2023-11-02 02:26 | XMS_ITS | Encounter Summary ---
Author Organization [facility] Address [facility] [place] [address] Care Team Providers Care Rn Eligibility Name Role Phone Zeny James SLIDING JOINT MAKER Primary Care Provider Encounter Details Date Type Department Care Team (Latest Contact Info) Description 09/07/2023 Travel Social History Tobacco Use Types Packs/Day [...] 1:00 PM EDT Office Visit Hematology/Oncology at [address] [phone] Mary Nails APRN [address] [place] [address] MEDICAL ONCOLOGY [place], [place] [address] 11/02/2023 1:30 PM EDT Infusion Hematology Oncology at [address] [phone] documented as of this encounter Visit Diagnoses Not on filedocumented in this encounter Care Teams Rn Eligibility Relationship Specialty Start Date End Date Zeny James APRN [address] [place] [address] [address] [place] [address] PCP - General Family Medicine 09/23/19 documented as of this encounter
--- OUTSIDE RECORDS SUMMARY | 2023-11-02 02:26 | XMS_ITS | Encounter Summary ---
Author Organization [facility] Address [facility] [place] [address] Care Team Providers Care Refueling Ramp Supervisor Name Role Phone Zeny James APRN Primary Care Provider Encounter Details Date Type Department Care Team (Late st Contact Info) Description 10/19/2022 Notes Only Care Management [facility] [place] [phone] Maylin Dodge Social History Tobacco Use Types [...] encounter Progress Notes * Maylin Dodge - 10/19/2022 10:53 AM EDT Linda has been approved to receive her Creon at no cost through [employer] until 04/16/2023. documented in this encounter Plan of Treatment Upcoming Encounters Date Type Department Care Team (Late st Contact Info) Description 11/02/2023 1:00 PM EDT Office Visit Hematology/Oncology at [address] [phone] Mary Nails APRN [address] [place] [address] MEDICAL ONCOLOGY [place], [place] [address] 11/02/2023 1:30 PM EDT Infusion Hematology Oncology at [address] [phone] documented as of this encounter Visit Diagnoses Not on filedocumented in this encounter Care Teams Refueling Ramp Supervisor Relationship Specialty Start Date End Date Zeny James APRN [address] [place], [place] [address] PCP - General Family Medicine 09/23/19 documented as of this encounter
--- OUTSIDE RECORDS SUMMARY | 2023-11-02 02:26 | XMS_ITS | Encounter Summary ---
Author Organization [facility] Address [facility] [place] [address] Care Team Providers Care Dynamic Etching Processor Name Role Phone Zeny James APRN Primary Care Provider Encounter Details Date Type Department Care Team (Late st Contact Info) Description 03/01/2023 10:30 AM EST Office Visit Dermatology at [facility] [address] [place] [address] Michael Cavazos MD [facility] DR [facility] [address] History of basal cell carcinoma (BCC); Skin cancer screening; Multiple benign nevi of upper extremity, lower extremity, and trunk; Seborrheic keratosis; Lentigines; Reyes angioma; Inflamed seborrheic keratosis Social History Tobacco Use Types Packs/Day Years [...] this encounter Progress Notes * Dafne Calero, [facility] - 03/01/2023 10:30 AM EST Images from the original note were not included. DEPARTMENT OF DERMATOLOGY Medical Dermatology Clinic Provider: MICHAEL CAVAZOS MD Patient's preferred name Linda Preferred contact method for results []myDH []Letter [x]Phone: Home Detailed phone message OK? Yes PAST MEDICAL HISTORY If no, type N. If yes, type date, location, treatment Melanoma N Dysplastic nevi N SCC N BCC 12/21/22 BCC left nasal sidewall s/p Mohs 02/20/23 12/03/2020: right posterior calf, BCC, s/p ED&C [...] relevant family history N SOCIAL HISTORY Has garcia bushharjeet PRE-PROCEDURE SCREENING If no, type N. If yes, include details below Allergy to lidocaine, epinephrine, Dermabond, chlorhexidine, or adhesives: No Bleeding disorder or blood thinners: ASA 81mg, Vitamin E, Pravastatin 20mg, Briscoe-3 Pacemaker, defibrillator, deep brain stimulator, cochlear implant: No History of Present Illness: Linda Serrano is a 77 y.o. Patient returns to clinic today for full skin exam. Patient presents with the following concerns: -discoloration on right leg. Present unknown time. -Scaly spot on lower back. Present for unknown time. Itchy at times. No previous treatment. Last visit at Dermatology: 12/21/2022 Last visit with this provider: 12/21/2022 Medications: Reviewed in eD-H Allergies: Reviewed in eD-H Skin Examination: Full skin examination: Patient asked to undress to their comfort level. Verbalized that the provider's preference is that patient remove all clothing and that the provider will not examine areas patient elects to keep covered. Examination of the scalp, hair, head, face, ears, neck, chest, axillae, abdomen, back, buttocks, and upper and lower extremities was normal with the exception of the findings below. Genitalia not examined. Assessment/Plan # History of BCC - Well-healed scars per skin history. - No evidence of recurrence; will continue to monitor. # Inflamed seborrheic keratosis - stuck-on brown/pelletier waxy papule with erythema located on the right upper arm x1, - Reassured of the benign nature of these lesions - Given irritated nature, joint decision to proceed with treatment with LN2 today - Procedure: Destruction with Liquid Nitrogen Cryotherapy Number of lesions - 1 The patient's verbal consent for liquid nitrogen was obtained. Risks and benefits were explained. The possible need for additional liquid nitrogen was reviewed. Lesion(s) were treated with LN2 [id number] freeze-thaw cycle. The patient tolerated the procedure well. Wound care was reviewed. # Nevi-scattered brown macules on the back, chest, and face w/o concerning findings on dermoscopy -pt reassured -advised the pt to monitor nevi monthly and if they are growing, changing color, or new lesions appear pt should call back to be seen before their next FBSE # Reyes angiomas - scattered on the trunk and extremities are bright red smooth papules. - Reassured of the benign nature of these lesions. No treatment needed. # Seborrheic keratoses - serrano/brown waxy stuck-on papules and plaques on the trunk and extremities. Including lower back. - Reassured of the benign nature of these lesions - No treatment needed # Solar lentigines - 0.3-0.6cm light-brown evenly pigmented, well-demarcated macules in a photodistributed pattern on the face, trunk and extremities. - Recommend diligent sun protection (hats/shade/clothing/sunscreen) - Discussed warning signs of skin cancer Other: N/A RTC: 1 year FSE or PRN []Note routed to litigation legal secretary [x]Recall placed in scheduling system []Appointment scheduled at checkout Scribe attestation: Karime Pal RN has performed the documentation for this encounter in the presence of and acting as a scribe for MICHAEL CAVAZOS MD. I performed the above scribed service and agree with the accuracy of the documentation in this encounter. Reviewed and signed by: MICHAEL CAVAZOS MD Dermatology [facility] documented in this encounter Plan of Treatment Upcoming Encounters Date Type Department Care Team (Late st Contact Info) Description 11/02/2023 1:00 PM EDT Office Visit Hematology/Oncology at [address] [phone] Mary Nails APRN [address] [place] [address] [place] [address] 11/02/2023 1:30 PM EDT Infusion Hematology Oncology at [address] [phone] documented as of this encounter Visit Diagnoses Diagnosis History of basal cell carcinoma (BCC) Skin cancer screening Screening for malignant neoplasm of the skin Multiple benign nevi of upper extremity, lower extremity, and trunk Seborrheic keratosis Other seborrheic keratosis Lentigines Other dyschromia Reyes angioma Nevus, non-neoplastic Inflamed seborrheic keratosis documented in this encounter Care Teams Dynamic Etching Processor Relationship Specialty Start Date End Date Zeny James APRN [address] [place] [address] PCP - General Family Medicine 09/23/19 documented as of this encounter
--- OUTSIDE RECORDS SUMMARY | 2023-11-02 02:26 | XMS_ITS | Encounter Summary ---
Author Organization [facility] Address [facility] [place] [address] Care Team Providers Care Nursery Laborer Name Role Phone Zeny James METALLOGRAPHY TEACHER Primary Care Provider Encounter Details Date Type Department Care Team (Latest Contact Info) Description 02/20/2023 Travel Social History Tobacco Use Types Packs/Day [...] place to sleep or slept in a skilled nursing (including now)? No 04/29/2021 Sex and Gender Information Value Date Recorded Sex Assigned at Not on file Gender Identity Not on file Sexual Orientation Not on file documented as of this encounter Plan of Treatment Upcoming Encounters Date Type Department Care Team (Late st Contact Info) Description 11/02/2023 1:00 PM EDT Office Visit Hematology/Oncology at [address] [phone] Mary Nails APRN [address] [place] [address] MEDICAL ONCOLOGY [place], [place] [address] 11/02/2023 1:30 PM EDT Infusion Hematology Oncology at [address] [phone] documented as of this encounter Visit Diagnoses Not on filedocumented in this encounter Care Teams Nursery Laborer Relationship Specialty Start Date End Date Zeny James APRN [address] [place] [address] [address] [place] [address] PCP - General Family Medicine 09/23/19 documented as of this encounter
--- OUTSIDE RECORDS SUMMARY | 2023-11-02 02:26 | XMS_ITS | Encounter Summary ---
Author Organization [facility] Address [facility] [place] [address] Care Team Providers Care Rig Builder Name Role Phone Zeny James APRN Primary Care Provider [phone] Encounter Details Date Type Department Care Team (Late st Contact Info) Description 06/29/2023 2:00 PM EDT Office Visit Dermatology at [facility] [address] [place] [phone] Michael Cavazos MD [facility] [place] [address] Skin cancer screening; History of basal cell carcinoma (BCC); Neoplasm of unspecified behavior of bone, soft [...] place to sleep or slept in a group home (including now)? No 04/29/2021 Sex and Gender Information Value Date Recorded Sex Assigned at Not on file Gender Identity Not on file Sexual Orientation Not on file documented as of this encounter Progress Notes * Dafne Calero, [facility] 06/29/2023 2:00 PM EDT Images from the original note [...] thinners: ASA 81mg, Vitamin E, Pravastatin 20mg, [place]-3 Pacemaker, defibrillator, deep brain stimulator, cochlear implant: No History of Present Illness: Linda Serrano is a 77 y.o. Patient returns to clinic today for concerning spot on nose. Patient reports Small red spot on the right nostril. Asymptomatic. . Been there a few months. Had flap surgery done feels bumpy wants to know what she can do about it . Last visit at Dermatology: 03/01/2023 Last visit with this provider: 03/01/2023 Medications: Reviewed in eD-H Allergies: Reviewed in eD-H Skin Examination: Focused skin examination of the face was normal with the exception of the findings below. Assessment/Plan #. R/o BCC - 0.2cm papule with telangiectasia (Figure 1) - Recommended a skin biopsy to confirm/clarify the nature of the skin lesion. After discussing potential risks (e.g., bleeding, pain, infection, pigment change, scarring, recurrence), patient agreed to proceed. - Patient denies known allergies to lidocaine and epinephrine. Procedure: Skin shave biopsy. Location: right nostril Time of procedure: 2:10pm Indications and expectations, including risks and benefits, discussed. Verbal consent obtained. Skin prepped with alcohol. Local anesthesia administered with 1% xylocaine, 1:100,000 epinephrine. Sample of lesion removed by shave technique to level of dermis and submitted to Pathology. Hemostasis obtained (AlCl3,) There were no complications; patient tolerated procedure well. Wound dressed. Post-procedure expectations, wound care, and activity restrictions reviewed. Follow-up based on pathology results. - Instructed patient to contact the clinic if patient has not received the results of this procedure within 3 weeks. Figure 1 Photo(s) taken and charted with patient's verbal consent. Other: N/A RTC: Pending pathology []Note routed to special education secretary []Recall placed in scheduling system []Appointment scheduled at checkout Scribe attestation: Faisal Rees RN has performed the documentation for this encounter in the presence of and acting as a scribe for MICHAEL CAVAZOS MD. I performed the above scribed service and agree with the accuracy of the documentation in this encounter. Reviewed and signed by: MICHAEL CAVAZOS MD Dermatology [facility] * Michael Cavazos MD - 06/29/2023 2:00 PM EDT BCC as expected. Needs referral to Mohs, Please call patient to [facility] villalpando documented in this encounter Plan of Treatment Upcoming Encounters Date Type Department Care Team (Late st Contact Info) Description 11/02/2023 1:00 PM EDT Office Visit Hematology/Oncology at [address] [phone] Mary Nails APRN [address] [place] [address] MEDICAL ONCOLOGY [place], [place] [id number] 11/02/2023 1:30 PM EDT Infusion Hematology Oncology at [address] [phone] documented as of this encounter Procedures Procedure Name Priority Date/Time Associated Diagnosis Comments SURGICAL PATHOLOGY REPORT Routine 06/29/2023 2:22 PM EDT SPECIMEN TO PATHOLOGY Routine 06/29/2023 2:22 PM EDT Neoplasm of unspecified behavior of bone, soft tissue, and skin documented in this encounter Results * (ABNORMAL) Surgical Pathology Report (06/29/2023 2:22 PM EDT) Surgical Pathology Report [id number] ? Location: [facility] The signing pathologist has (i) examined the relevant preparation(s) for the specimen(s) and (ii) rendered or confirmed the diagnosis(es). . ?Surgical Pathology DIAGNOSIS Right ??nostril, skin shave biopsy: - ??Basal cell carcinoma, superficial and early nodular patterns, present at the peripheral and deep specimen edges Electronically signed by: ?Trudy Duenas MD Verified: ??07/07/2023 14:01 ??Dermatopathol ogist Performed at: ??-[facility] Dept. of Pathology, [place] [address] Furnace Puncher: Elaine Black MD, FCAP, ??CLIA Certificate: [id number] DISCUSSION THIS RESULT REQUIRES PHYSICIAN/A.P.P . FOLLOW UP SPECIMEN(S) SUBMITTED A - right nostril, skin shave biopsy (1) CLINICAL INFORMATION 0.2 cm papule with telangiectasia. ??Rule out BCC SPECIMEN PROCESSING A - Labeled/Fixativ e: Patient demographics, formalin. Quantity/Size: ??Single, 0.5 x 0.4 cm. Tissue Description: Not oriented elliptical to ovoid, slightly domed pelletier-white skin shave. Sections/Proces sing: Inked, bisected and entirely submitted in 1 cassette labeled A1. ??shb(A) [facility] 06/29/2023 2:22 PM EDT Michael Cavazos MD PATHOLOGY/CYTOLOGY O LORE Performing Organization Address [facility]/ZIP Co de Phone Number [facility] [place] [address] * Specimen to Pathology (06/29/2023 2:22 PM EDT) AP Specimen 06/29/2023 2:22 PM EDT 06/29/2023 2:22 PM EDT Narrative [facility] - 06/29/2023 2:22 PM EDT Specimen requisition ordered. ??Separate Pathology report to follow Michael Cavazos MD PATHOLOGY/CYTOLOGY O RDMANAV Performing Organization Address [facility]/ZIP Co de Phone Number [facility] [place] [address] documented in this encounter Visit Diagnoses Diagnosis Skin cancer screening Screening for malignant neoplasm of the skin History of basal cell carcinoma (BCC) Neoplasm of unspecified behavior of bone, soft tissue, and skin documented in this encounter Care Teams Rig Builder Relationship Specialty Start Date End Date Zeny James APRN [address] [place] [address] PCP - General Family Medicine 09/23/19 documented as of this encounter
--- OUTSIDE RECORDS SUMMARY | 2023-11-02 02:26 | XMS_ITS | Encounter Summary ---
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 [address] Jeffery Sanz MD [facility] [address] HEMATOLOGY/[place] [address] Referral ID Status Reason Start Date Expiration Date V isits Requested Visits Authorized [id number] Authorized 04/17/2022 07/03/2023 99 99 Encounter Details Date Type Department Care Team (Late st Contact Info) Description 11/10/2022 10:00 AM EDT Infusion Hematology Oncology at [address] [phone] Malignant neoplasm of left breast in female, estrogen receptor positive, unspecified site of breast; Osteopenia, unspecified location; senior care current use of aromatase inhibitor Social History [...] as of this encounter Progress Notes * Coni Gorman, [facility] - 11/10/2022 10:00 AM EDT INFUSION THERAPY ADMINISTRATION NOTES TIME TREATMENT STARTED: 1000 TIME TREATMENT ENDED: 1030 DIAGNOSIS: breast cancer/osteopenia PROTOCOL:na CYCLE #: every 6 months REASON FOR VISIT: prolia SUBJECTIVE Linda Serrano offers no complaints. OBJECTIVE LAB DATA: calcium 9.3, LFTS up per Rhona Hogan NEW MEDIA STRATEGIST ok to give REACTIONS (DESCRIPTION, TIME, INTERVENTION AND EFFECTIVENESS) none ASSESSMENT Linda Serrano was awake, alert and he tolerated treatment well. PLAN Return to clinic per routine. documented in this encounter Plan of Treatment Upcoming Encounters Date Type Department Care Team (Late st Contact Info) Description 11/02/2023 1:00 PM EDT Office Visit Hematology/Oncology at [address] [phone] Mary Nails APRN [address] [place] [address] MEDICAL ONCOLOGY [place], [place] [phone] 11/02/2023 1:30 PM EDT Infusion Hematology Oncology at [address] [phone] documented as of this encounter Visit Diagnoses Diagnosis Malignant neoplasm of left breast in female, estrogen receptor positive, unspecified site of breast Osteopenia, unspecified location senior care current use of aromatase inhibitor Use of aromatase inhibitors documented in this encounter Administered Medications Inactive Administered Medications - up to 3 most recent administrations Medication Order MAR Action Action Date Dose Rate Site denosumab (Prolia) (60 mg/mL) subcutaneous injection 60 mg 60 mg, Subcutaneous, ONCE, 1 dose, On Pamella 11/10/22 at 1030, Bring to room temperature 15-30 mins before administration. Monitor patients with severe impairment (CRCL less than 30 mL/minute or on dialysis) due to increased risk of hypocalcemia., Restricted to outpatient use. Requires P&T approval for inpatient use. Use in outpatient setting Given 11/10/2022 10:25 AM EDT 60 mg Left Arm documented in this encounter Care Teams Cadmium Liquor Maker Relationship Specialty Start Date End Date Zeny James APRN [address] [place], [place] [id number] PCP - General Family Medicine 09/23/19 documented as of this encounter
--- OUTSIDE RECORDS SUMMARY | 2023-11-02 02:26 | XMS_ITS | Encounter Summary ---
Author Organization Formerly [facility] Address [facility] [place] [address] Care Team Providers Care Plant Breeder Scientist Name Role Phone Zeny James APRN Primary Care Provider [phone] Reason for Visit * Reason Comments Basal Cell Carcinoma * Consultation (Routine) - Closed Specialty Diagnoses / Procedures Referred By Nir potts Referred To Contact Dermatology Diagnoses Basal cell carcinoma (BCC) of left nasal sidewall Estela Velasquez MD [facility] [address] [facility] [address] Jayro Mack MD [facility] [address] [facility] [address] Referral ID Status Reason Start Date Expiration Date V isits Requested Visits Authorized [id number] Closed Consult, Test & Treat 12/30/2022 12/30/2023 1 1 Encounter Details Date Type Department Care Team (Latest Contact Info) Description 02/20/2023 11:00 AM EST Procedure visit Dermatology at [facility] [address] [place] [address] Jayro Mack MD [facility] [address] [facility] [address] Basal cell carcinoma (BCC) of left nasal [...] place to sleep or slept in a care home (including now)? No 04/29/2021 Sex and Gender Information Value Date Recorded Sex Assigned at Not on file Gender Identity Not on file Sexual Orientation Not on file documented as of this encounter Last Filed Vital Signs Vital Sign Reading Time Taken Comments Blood Pressure 145/73 02/20/2023 11:08 AM EST Pulse 71 02/20/2023 11:08 AM EST Temperature - - Respiratory Rate - - Oxygen Saturation - - Inhaled Oxygen Concentration - - Weight - - Height - - Body Mass Index - - documented in this encounter Patient Instructions * Patient Instructions* Essie Portillo RN - 02/20/2023 11:00 AM EST Your staff Mohs surgeon today was Jayro Mack MD, PhD. FLAP CLOSURE Your wound(s) was repaired by a flap closure. A flap closure is rearrangement of skin tissue. A flap is performed when the area has too much tension, or when a simple side to side closure cannot be performed, or when a flap would lead to better cosmetic outcome with a flap. Your flap may be closed with all absorbable sutures, sutures that need to be removed or a combination of both. You will be instructed upon discharge if a suture removal appointment is necessary. Caring for a flap is very similar to caring for regular side to side stitches, except more caution should be used when cleaning the incisions as some flaps can be delicate. Instructions for wound care are below. Please keep in mind these are general guidelines. When in doubt, or if you have more specific questions, please call us. Keep below as a reference while caring for your wound(s): Wound Care Gently remove your initial bandage (after 48 hours from surgery). It is normal to have swelling andbruising. Begin wound care as below. If your initial bandage only stayed on for 24 hours (for example, falls off sooner), this is okay. Resume your wound care and bandaging instructions as below. Change your bandage once a day (and whenever it becomes wet or soaks through) continue for 7 days. For bandage changes: Wash hands with soap and water, or use gloves that you can purchase at a local pharmacy or drug store. Clean the surgical area with cotton-tipped swabs or soft gauze dipped in soapy water (recommend liquid soap in clean room temperature water). Roll the cotton swab over the incision with soapy water, then with plain water, and then gently pat dry. Do not scrub the area with a washcloth. Do not put direct shower water pressure onto your wound. Do not pick off any scabs. It is okay to allow soapy water [...] a generous layer of petrolatum over the incision lines and any open-wound areas. Make sure your tube or jar of petrolatum is new or unused to prevent prior contamination from entering your wound. Avoid double dipping. After applying petrolatum, use a clean nonstick gauze or other nonstick dressing, such as Telfa. This may be purchased over the counter at a drug store. Do not use regular gauze as it will stick to your wound and can peel off healing skin with bandage changes. Secure the bandage with paper tape or a bandage. Band-aids are okay, but typically have more adhesive that can irritate the skin compared to paper tape. This can be purchased at a drug store. Continue this wound care daily for 7 days. If any areas of the flap were left open to heal, continue to apply Vaseline until healed. Keep in mind that if you do not want to use a bandage at all due to difficulty, irritation of skin,cost, or inconvenience --- you can certainly avoid bandages altogether. However, it is imperative that you continue with topical petrolatum (plain, fragrance-free). This may need to be applied several times daily if it gets wiped off, washed off, or dries out. Things to purchase for wound care: -Nonstick gauze -A tube or tub of petrolatum jelly (fragrance-free, no dye, not lotion) -paper tape -cotton swabs -gloves (optional) -Dial or other antibacterial liquid soap After Surgery Avoid tobacco, smoking/vapors, and cannabis (marijuana) for at least 3 weeks after your surgery. Smoking impairs healing and leads to worse scarring. Even cutting back on tobacco is helpful if you cannot abstain completely. Limit alcohol intake to one drink per day over the next 3 days. Do not participate in athletic activities for 5-7 days. Athletic activity is a relative term, but this is considered to be anything that could potentially raise your heartrate or blood pressure. Elevating your heart rate and blood pressure can increase risks of swelling, bleeding, wound opening, orlead to worse scarring. Walking at a leisurely pace is fine for most people, but not if you are going walking for the purpose of exercise. Do not lift anything heavier than 10 pounds until your sutures are removed. Some distance education coordinator may need to be delayed or delegated such as vacuuming, mowing the lawn, snow shoveling, or caring for young children that need to be carried/lifted. Working any major muscle groups increases your heart rate and can increasing bleeding. Avoid swimming, hot tubs, and direct water pressure for 3 weeks after surgery. You may shower once your initial bandage comes off in 48 hours, however. Avoid antibiotic ointments such as triple antibiotic creams. Stick with your wound care instructions, please. Whenever possible, it is helpful to take photographs with your camera or cell phone of any problemsor concerns you see with your wound. We often ask for photos when you call with questions.. Your wound will appear completely healed soon after sutures are removed (about 1 week), but incisions can remain bright red for several weeks. Then the scarring and healing process continues under the skin for 6 months up to 2 years. The scar may become less red, less firm, and more subtle during this time but the rate of improvement varies depending on the person. Most redness, discoloration, bumpiness resolves by 6 months. Keep your follow-up appointments and make sure to continue to have your skin checked, as often as is recommended by your hvac estimator, for new skin cancers. This is once per year for most patients. Your can expect your scar to be red for several weeks with gradual fading of the redness. The scar will also be raised and lumpy until the dissolvable sutures under the skin get absorbed by your bodywhich can take 3-4 months. The scar will flatten eventually. Occasionally, about 20% of the time, on the face, the stitches under the skin can spit out of theincision to the surface. It can start out looking like a pimple or blemish directly on your incision. Sometimes it can look like a small mini infection so please let us know before you [...] your incision with a bandage when outdoors, or wearing SPF 30 to 50 sunscreen (broad spectrum). Sometimes after your sutures are removed, your incision may still be healing for 1 more week. Because of this, avoid make-up and sunscreen until approximately 2 weeks after surgery, or sooner if yourskin edges look completely sealed. Flaps may sometimes thicken or become firm several weeks after surgery. This is expected in some types of flaps and in certain locations on the face. This is called hypertrophy. If this occurs, at your wound check, you may need small amounts of medicine injected into your flap to help it soften or thin. This will be determined at your follow-up visit. Flaps and skin surgery in general can lead to mild sensation loss (numbness) in the area of surgery. Massage starting at 8 weeks after surgery can help. Bruising. It is very common to have bruising in swelling in any area of the face, even in areas that are distant from where we did surgery. This is especially common 24 to 48 hours after surgery whenfluid and swelling shifts around in the face. For example, surgery on the forehead, temples, or cheeks often leads to eyelid swelling of both eyes, black eyes, or dark purple bruising. This is expected in most patients and will gradually resolve. However, if you have severe pain not resolving with over the counter medicine, please call us. You can use ice packs or a bag of frozen peas for 15-20minutes 3-4 times daily to areas of swelling on the face; use caution not to put the icy item directly on your incision, directly onto your skin as this can damage skin, and avoid prolonged use more than 20 minutes. The best way to use ice packs is over the bandage, or a light cloth/paper towel between the ice pack and your skin. You can ice for as many days as needed until swelling has resolved. Antibiotics: If you were given antibiotic prescription, it is important to start them the evening of your surgery date. Most patients do not need antibiotics after surgery. For pain: Most patients of different ages do not require pain medications. If you do feel soreness or pain, start by taking over the counter extra strength acetaminophen (up to 3000 mg in a 24 hour period). Generally, we like you to avoid NSAIDS (non-steroid anti-inflammatory drugs such as ibuprofen) for thefirst 48 hours after surgery as this can increase risk of bleeding. However, if acetaminophen is not helping with pain, you can alternate acetaminophen with iburpofen (ibuprofen 400 mg every 4 hours.) Ice packs over your bandage without getting your bandage wet can also help with pain and swelling,for up to 20 minutes at a time (20 minutes off between icing sessions). Frozen peas work well as ice packs. THIS [...] it. If after hours, please call the clamp forklift operator or [phone] and ask for the hvac estimator on-call. If you have any non-urgent questions or concerns, please feel free to call my office or contact me through our patient portal, [facility], at [email or web address] How to contact us during business hours Dermatology at [facility] [address]: Mohs scheduling or Mohs follow-up appointments: [phone] documented in this encounter Progress Notes * Jayro Mack MD - 02/20/2023 11:00 AM EST Images from the original note were not included. Summary of Procedure(s): Site: left nasal sidewall Tumor Type: Basal Cell Carcinoma, superficial and nodular Stages to clear tumor: 2 Repair: advancement flap Images: The patient was asked to call with any issues and is aware that I am available 07/11 should questions arise. Jayro Mack MD PhD Mohs Micrographic Surgery and Dermatologic Oncology Department of Dermatology Please note that I have reviewed the preoperative checklist from today's nursing visit including relevant social history and medications. I have reviewed the preoperative photos if available and the biopsy report. VITAL SIGNS: BP 145/73 (BP Location (NBP): Left arm, Patient Position: Sitting, BP Cuff Sizes: Adult (25-34 cm)) Pulse 71 PHYSICAL EXAMINATION: General: patient is awake, alert, [...] 77 y.o. female presenting for: 1. Biopsy-proven basal cell carcinoma, superficial and nodular located on the left nasal sidewall. Plan: 1. Findings from the biopsy report, [...] and follow up with his or her hvac estimator or other skin provider. 5. Discussed avoiding direct sun exposure to scars for best cosmetic result. Note initiated by Essie Portillo RN Essie Portillo RN has performed the documentation for this encounter in the presence of and acting as a scribe for Dr. Mack I performed the above scribed service and agree with the accuracy of the documentation in this encounter. Reviewed and signed by: Jayro Mack Dermatology [facility] * Jayro Mack MD - 02/20/2023 11:00 AM EST Mohs micrographic Surgery Operative Report Patient name: Linda Serrano : 1945 Date: 02/20/2023 Staff Surgeon and Pathologist: Jayro Mack MD PhD Nursing/Scaleman(s): Essie Portillo RN Trouble Locator Test Desk (s): Armida Joyner Pre-operative diagnosis: Basal Cell Carcinoma, superficial and nodular Post-operative diagnosis: basal cell carcinoma, superficial, nodular and infiltrative Location/Site: left nasal sidewall Procedure: Mohs micrographic surgery Indication(s) for Mohs micrographic surgery: Anatomic location for tissue conservation Stages: 2 Preoperative size of tumor: 0.6 x 0.4 cm Stage I The nature [...] The site was confirmed with the patient/authorized district sales representative/referring physician and/or a photograph form time of biopsy. A pre-operative time-out (procedural pause) was conducted with no unresolved discrepancies noted. Local anesthesia was obtained with 0.5 % lidocaine with 1:200,000 epinephrine. The surgical site was prepped and [...] frozen sections, residual tumor was identified as SUPERFICIAL BASAL CELL CARCINOMA - Extending from the epidermis and superficial hair follicles are multicentric buds of basaloid keratinocytes. The nuclei at the periphery of the islands have a palisaded arrangement. The tumor islands are associated with a fibromyxoid stroma and there is cleft formationbetween some of the islands and stroma. and NODULAR BASAL CELL CARCINOMA - Arising from the epidermis and extending into the dermis are irregularly shaped islands of basaloid keratinocytes. The cellshave scant cytoplasm and round dark nuclei. The cells at the periphery of the islands display a palisaded arrangement. The islands are associated with a fibromyxoid stroma and there is cleft formation between some of the islands and stroma. on section A1 and A2 (see section number on map). Stage II The surgical site was re-anesthetized with 0.5 % lidocaine with 1:200,000 epinephrine, re-prepped and redraped in a sterile [...] border of the sections. Depth of excision subcutaneous tissue Final defect size: 1.1 x 0.9 cm Jayro Mack MD PhD Mohs Micrographic Surgery and Dermatologic Oncology Department of Dermatology [address] [place] [address] Repair Report (Flap) Patient name: Linda Serrano Staff Surgeon: Jayro Mack MD PhD Sales Marketing Coordinator(s): same as above pathologist assistant: Arline Sifuentes MD Date: 02/20/2023 Clinical Diagnosis: skin and soft tissue defect status post Mohs micrographic surgery Location/Site: left nasal sidewall Indication: repair of wound with lutheran of anatomy/function Defect size to be repaired: 1.1 x 0.9 cm Procedure: Advancement flap repair (tissue rearrangement) Final flap size: 3 x 2 cm 2 Procedure Details: Due to the size and location of the defect resulting from the complete removal of the tumor, the postoperative risk of hemorrhage, infection, and the possibility of serious deformity from scarring, and in order to restore proper function and prevent loss of function, the defect was closed with a flap. The nature and purpose of the procedure, associated risks, possible consequences, complications andalternative methods of treatment were explained to the patient in detail. An informed consent was obtained. Local anesthesia was obtained with a solution of 0.5 % lidocaine with 1:200,000 epinephrine. The surgical site was prepped and draped in the usual sterile manner. Any beveled edges of the defect were repaired with a scalpel blade. The flap was created by making incisions along the left nasal sidewall and left nasal tip. The flapand the wound edges were undermined, and hemostasis was obtained with electrocoagulation. The flap was advanced onto the defect. The skin edges were closed using 4-0 Monocryl dermal/subcutaneous sutures and 6-0 Prolene skin sutures. Final flap size: 3 x 2 cm2. Estimated blood loss: Minimal. Complications: None. Wound care: Routine. Follow up for suture removal in nine days. The patient was discharged in good condition. Total anesthesia used today of 0.5 % lidocaine with 1:200,000 epinephrine: 7cc Jayro Mack MD PhD Mohs Micrographic Surgery and Dermatologic Oncology Department of Dermatology [address] [place] [address] Note initiated by Essie Portillo RN. Essie Portillo RN has performed the documentation for this encounter in the presence of and acting as a scribe for Dr. Mack I performed the above scribed service and agree with the accuracy of the documentation in this encounter. Reviewed and signed by: Jayro Mack Dermatology [facility] documented in this encounter Plan of Treatment Upcoming Encounters Date Type Department Care Team (Late st Contact Info) Description 11/02/2023 1:00 PM EDT Office Visit Hematology/Oncology at [address] [phone] Mary Nails APRN [address] [place] [address] DR MEDICAL ONCOLOGY [place], [place] [id number] 11/02/2023 1:30 PM EDT Infusion Hematology Oncology at [address] [phone] Scheduled Referrals Name Type Priority Associated Diagnoses Order Schedule Referral to Dermatology Outpatient Referral Routine Basal cell carcinoma (BCC) of left nasal sidewall Ordered: 12/30/2022 documented as of this encounter Visit Diagnoses Diagnosis Basal cell carcinoma (BCC) of left nasal sidewall documented in this encounter Care Teams Plant Breeder Scientist Relationship Specialty Start Date End Date Zeny James APRN [address] [place] [address] [address] [facility] [address] [place] [address] PCP - General Family Medicine 09/23/19 documented as of this encounter
--- OUTSIDE RECORDS SUMMARY | 2023-11-02 02:26 | XMS_ITS | Encounter Summary ---
Author Organization [facility] Address [facility] [place] [address] Care Team Providers Care Commercial Lines Account Executive Name Role Phone Zeny James CAN LINE OPERATOR Primary Care Provider Encounter Details Date Type Department Care Team (Latest Contact Info) Description 05/04/2023 Travel Social History Tobacco Use Types Packs/Day [...] place to sleep or slept in a senior living (including now)? No 04/29/2021 Sex and Gender Information Value Date Recorded Sex Assigned at Not on file Gender Identity Not on file Sexual Orientation Not on file documented as of this encounter Plan of Treatment Upcoming Encounters Date Type Department Care Team (Late st Contact Info) Description 11/02/2023 1:00 PM EDT Office Visit Hematology/Oncology at [address] [phone] Mary Nails APRN [address] [place] [address] MEDICAL ONCOLOGY [place], [place] [id number] 11/02/2023 1:30 PM EDT Infusion Hematology Oncology at [address] [phone] documented as of this encounter Visit Diagnoses Not on filedocumented in this encounter Care Teams Commercial Lines Account Executive Relationship Specialty Start Date End Date Zeny James APRN [address] [place] [address] [address] [facility] [address] [place] [address] PCP - General Family Medicine 09/23/19 documented as of this encounter
--- OUTSIDE RECORDS SUMMARY | 2023-11-02 02:26 | XMS_ITS | Encounter Summary ---
Author Organization [facility] Address [facility] [place] [address] Care Team Providers Care Service Desk Director Name Role Phone Zeny James APRN Primary Care Provider Encounter Details Date Type Department Care Team (Late st Contact Info) Description 12/28/2022 Orders Only [place] [phone] Regino Carolina MD [facility] [place] [address] History of pancreatectomy (Primary Dx); Vitamin D deficiency; Iron deficiency anemia due to chronic blood loss Social History Tobacco Use Types Packs/Day Years [...] to sleep or slept in a senior care (including now)? No 04/29/2021 Sex and Gender Information Value Date Recorded Sex Assigned at Not on file Gender Identity Not on file Sexual Orientation Not on file documented as of this encounter Plan of Treatment Upcoming Encounters Date Type Department Care Team (Late st Contact Info) Description 11/02/2023 1:00 PM EDT Office Visit Hematology/Oncology at [address] [phone] Mary Nails [address] [place] [address] 11/02/2023 1:30 PM EDT Infusion Hematology Oncology at [address] [phone] documented as of this encounter Results * Vitamin D, 25-Hydroxy (01/03/2023 12:32 PM EDT) 25-OH Vit D Total 27 21 - 100 ng/mL [facility] 25-OH Vit D Interp Insufficient [facility] Blood 01/03/2023 12:3 2 PM EDT 01/03/2023 12:39 PM EDT Narrative Resulting Agency Comment Spec In Lab Regino Carolina MD CHEMISTRY ORDERABL ES [facility] [place] [address] * (ABNORMAL) Vitamin B1, whole blood (01/03/2023 12:32 PM EDT) Vit B1 Lvl WB 185(H) 70 - 180 nmol/L [facility] Comment: ADDITIONAL INFORMATION This test was developed and its performance characteristics determined by [facility] in a manner consistent with CLIA requirements. This test has not been cleared or approved by the U.S. Food and Drug Administration. Test Performed by: [facility] [place] [address] [employer] Furniture Reproducer: Denzel Angel M.D. Ph.D.; CLIA# [id number] Blood 01/03/2023 12:3 2 PM EDT 01/03/2023 3:21 PM EDT Narrative Resulting Agency Comment Spec In Lab Regino Carolina MD CHEMISTRY ORDERABL ES Performing Organization Address City/[facility]/ZIP Co de Phone Number [facility] [place] [place] [address] * Folate, serum (01/03/2023 12:32 PM EDT) Folate Lvl 18.8 4.8 - 24.2 ng/mL [facility] Blood 01/03/2023 12:3 2 PM EDT 01/03/2023 12:39 PM EDT Narrative Resulting Agency Comment Spec In Lab Regino Carolina MD CHEMISTRY ORDERABL ES Performing Organization Address City/[facility]/ZIP Co de Phone Number [facility] [place] [address] * (ABNORMAL) Comprehensive metabolic panel (non-fasting) (01/03/2023 12:32 PM EDT) Glucose Lvl 155 65 - 199 mg/dL [facility] Comment:Diabetes: >=200 mg/d L plus symptoms BUN 16 8 - 18 mg/dL [facility] Creatinine 0.54(L) 0.70 - 1.20 mg/dL [facility] Sodium 140 135 - 145 mmol/L [facility] Potassium 4.3 3.5 - 5.0 mmol/L [facility] Comment: Please note: ??Patients with WBC >100,000 may have falsely elevated Potassium levels. ??For accurate Potassium quantification in these patients send serum separator tube (gold top) for subsequent determinations. ??Contact the Clinical Chemistry Laboratory if there are any questions. Chloride 102 98 - 107 mmol/L [facility] CO2 26 22 - 31 mmol/L [facility] Anion Gap 12 5 - 15 mmol/L [facility] Calcium 8.6 8.5 - 10.5 mg/dL [facility] Total Protein 6.5 6.1 - 8.0 g/dL [facility] Albumin 4.4 3.2 - 5.2 g/dL [facility] AST 37(H) 0 - 30 unit/L [facility] ALT 53(H) 0 - 30 unit/L [facility] Alk Phos 137(H) 35 - 105 unit/L [facility] Total Bilirubin 0.5 0.2 - 1.3 mg/dL [facility] Estimated GFR 95 >=60 mL/min/1. 73 m?? [facility] Comment: This patient's estimated [...] MD CHEMISTRY ORDERABL ES Performing Organization Address City/[facility] Co de Phone Number [facility] [place] [place] [address] * Vitamin B12 (01/03/2023 12:32 PM EDT) Vitamin B-12 831 232 - 1,245 pg/mL [facility] Blood 01/03/2023 12:3 2 PM EDT 01/03/2023 12:39 PM EDT Narrative Resulting Agency Comment Spec In Lab Regino Carolina MD CHEMISTRY ORDERABL ES Performing Organization Address [facility] de Phone Number [facility] [place] [address] * Vitamin E (01/03/2023 12:32 PM EDT) Vitamin E 9.3 5.5 - 17.0 mg/L [facility] Comment: ADDITIONAL INFORMATION This test was developed and its performance characteristics determined by [facility] in a manner consistent with CLIA requirements. This test has not been cleared or approved by the U.S. Food and Drug Administration. Test Performed by: [facility] - [address] [address] [employer] Reproducer: Denzel Angel M.D. Ph.D.; CLIA# [id number] Blood 01/03/2023 12:3 2 PM EDT 01/03/2023 3:08 PM EDT Narrative Resulting Agency Comment Spec In Lab Regino Carolina MD CHEMISTRY ORDERABL ES Performing Organization Address [facility] Co de Phone Number [facility] [place] [place] [address] * Vitamin A (01/03/2023 12:32 PM EDT) [facility] Vitamin A 45.2 32.5 - 78.0 mcg/dL [facility] Comment: ADDITIONAL INFORMATION This test was developed and its performance characteristics determined by [facility] in a manner consistent with CLIA requirements. This test has not been cleared or approved by the U.S. Food and Drug Administration. Test Performed by: [facility] - [address] [address] [employer] Reproducer: Denzel Angel M.D. Ph.D.; CLIA# [id number] Blood 01/03/2023 12:3 2 PM EDT 01/03/2023 3:06 PM EDT Narrative Resulting Agency Comment Spec In Lab Regino Carolina MD CHEMISTRY ORDERABL ES Performing Organization Address [facility]/ZIP Co de Phone Number [facility] [place] [address] * Ferritin (01/03/2023 12:32 PM EDT) [facility] Ferritin 33 30 - 400 ng/mL [facility] Comment: Pediatric reference ranges not verified at [facility], interpret with caution. Reference ranges for females greater than 50 years of age approach values for men, i.e., 30-400 ng/mL. Blood 01/03/2023 12:3 2 PM EDT 01/03/2023 12:39 PM EDT Narrative Resulting Agency Comment Spec In Lab Regino Carolina MD CHEMISTRY ORDERABL ES Performing Organization Address City/[facility]/ZIP Co de Phone Number [facility] [place] [address] * Iron and TIBC (01/03/2023 12:32 PM EDT) [facility] Iron 148 30 - 150 mcg/dL [facility] TIBC 342 250 - 450 mcg/dL [facility] Iron Saturation 43 20 - 50 % [facility] Blood 01/03/2023 12:3 2 PM EDT 01/03/2023 12:39 PM EDT Narrative Resulting Agency Comment Spec In Lab Regino Carolina MD CHEMISTRY ORDERABL ES [facility] [place] [address] documented in this encounter Visit Diagnoses Diagnosis History of pancreatectomy- Primary Vitamin D deficiency Unspecified vitamin D deficiency 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
--- OUTSIDE RECORDS SUMMARY | 2023-11-02 02:26 | XMS_ITS | Encounter Summary ---
Author Organization [facility] [place] [address] Care Team Providers Care Marketing Services Coordinator Name Role Phone VasuZeny santos JESUS ALBERTO Primary Care Provider Encounter Details Date Type Department Care Team (Late st Contact Info) Description 11/10/2022 9:30 AM EDT Office Visit Hematology/Oncology at [address] [phone] Jeffery Sanz MD [facility] HEMATOLOGY/[place] [address] Rhona Hogan APRN [facility] HEMATOLOGY/[place] [address] Malignant neoplasm of upper-outer quadrant of left breast in female, estrogen receptor positive; Osteopenia due to cancer therapy; Other specified disorders of bone density and structure, other site Social History Tobacco Use Types Packs/Day Years [...] Sign Reading Time Taken Comments Blood Pressure 155/73 11/10/2022 9:25 AM EDT Pulse 76 11/10/2022 9:25 AM EDT Temperature 36 ??C (96.8 ??F) 11/10/2022 9:25 AM EDT Respiratory Rate 16 11/10/2022 9:25 AM EDT Oxygen Saturation 100% 11/10/2022 9:25 AM EDT Inhaled Oxygen Concentration - - Weight 47.4 kg (104 lb 6.4 oz) 11/10/2022 9:25 A M EDT Height 154.9 cm (5' 0.98) 11/10/2022 9:25 AM ED T Body Mass Index 19.74 11/10/2022 9:25 AM EDT documented in this encounter Progress Notes * Rhona Hogan, CALL CENTER MANAGER - 11/10/2022 9:30 AM EDT Subjective Patient ID: Linda Serrano is a 77 y.o. female here for f/u of Breast cancer Patient Active Problem List Diagnosis Osteopenia 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 Gastroparesis Pre-diabetes Malignant neoplasm of left breast in female, estrogen receptor positive Dx: 12/05/19 [facility] IPMN (intraductal papillary mucinous neoplasm) AK (actinic keratosis) Seborrheic dermatitis Nevus SK (seborrheic keratosis) Solar lentigo Seborrheic keratosis Multiple pigmented nevi CIS - Entered not Verified CIS - Healthcare Maintenance CIS - Hypertension CIS - Myalgias CIS - R breast cancer Mid : Presented with palpable mass in [...] specimens had focally suggestive angiolymphatic invasion. ER-pos; [place]-neg; HER2=2+. 02/06/01: R MRM/ax dissection. On path, [...] b/o same side effects after 4 months. TERESITA Alcantara is doing great - she has been busy in her gardens. She has been healthy with no new health concerns. She is thinking about selling her house and downsizing to her neighbors b & b apartment. She reports excellent adherence to her daily AI. She denies any bothersome s/e's. No hot flashes, myalgias or vaginal dryness. She also tolerates prolia very well. She does enjoy walking [place] the [place]. Review of Systems Constitutional: Negative. HENT: Negative. Eyes: Negative. Respiratory: Negative. Negative for cough and shortness of breath. Cardiovascular: Negative. Negative for chest pain, palpitations and leg swelling. Gastrointestinal: Negative. Negative for constipation, diarrhea, nausea and vomiting. Genitourinary: Negative. Musculoskeletal: Negative. Skin: Negative. Neurological: Negative. Negative for weakness and numbness. Hematological: Negative. Psychiatric/Behavioral: Negative. Objective Physical Exam Constitutional: General: She is not in acute distress. Appearance: She is well-developed. HENT: Head: Atraumatic. Mouth/Throat: Pharynx: No oropharyngeal exudate. Eyes: Conjunctiva/sclera: Conjunctivae normal. Cardiovascular: Rate and Rhythm: Normal rate and regular rhythm. Heart sounds: Normal heart sounds. No murmur heard. Pulmonary: Effort: Pulmonary effort is normal. Breath sounds: Normal breath sounds. No wheezing or rales. Abdominal: General: Bowel sounds are normal. Palpations: Abdomen is soft. There is no mass. Tenderness: There is no abdominal tenderness. Musculoskeletal: General: Normal range of motion. Cervical back: Normal range of motion and neck supple. Lymphadenopathy: Cervical: No cervical adenopathy. Upper Body: Right upper body: No supraclavicular adenopathy. Left upper body: No supraclavicular adenopathy. Skin: General: Skin is warm and dry. Neurological: General: No focal deficit present. Mental Status: She is alert. Psychiatric: Mood and Affect: Mood normal. BP 155/73 (Patient Position: Sitting) Pulse 76 Temp 36 ??C (96.8 ??F) (Temporal) Resp 16 Ht154.9 cm (5' 0.98) Wt 47.4 kg (104 lb 6.4 oz) SpO2 100% BMI 19.74 kg/m?? Assessment and Plan 77-year-old female with an early stage low risk left breast cancer for which she is on hormonal therapy. No signs of local or systemic recurrence. She is due for Prolia today for her osteoporosis prevention. We will go ahead and give that to her today. It has been three years since her last Dexa scan - we will go ahead and repeat that to ensureshe is not having ongoing bone loss. She has had abnormal LFTs /IPMN- Her last imaging for this was 01/06- She is on Creon. She has annual surveillance with Surgery for this. In terms of following her for her breast cancer we will see her back in 6 months. I plan about 5 years of hormonal therapy for her. We will plan for another Prolia in 6 months. 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 Other specified disorders of bone density and structure, other site Expected: 11/17/2022, Expires: 05/19/2023 documented as of this encounter Visit Diagnoses Diagnosis Malignant neoplasm of upper-outer quadrant of left breast in female, 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
--- OUTSIDE RECORDS SUMMARY | 2023-11-02 02:26 | XMS_ITS | Encounter Summary ---
Author Organization [facility] [place] [address] Care Team Providers Care Professor Sculpture Name Role Phone VasuZeny santos JESUS ALBERTO Primary Care Provider Encounter Details Date Type Department Care Team (Late st Contact Info) Description 05/04/2023 10:00 AM EST Office Visit Hematology/Oncology at [address] [phone] Jeffery Sanz MD [facility] HEMATOLOGY/[place] [address] Rhona Hogan APRN [facility] HEMATOLOG[facility]/[place] [address] Malignant neoplasm of upper-outer quadrant of left breast in female, estrogen receptor positive Social History Tobacco Use Types Packs/Day Years [...] Sign Reading Time Taken Comments Blood Pressure 142/74 05/04/2023 9:55 AM EST Pulse 72 05/04/2023 9:55 AM EST Temperature 36.4 ??C (97.5 ??F) 05/04/2023 9:55 AM ES T Respiratory Rate 16 05/04/2023 9:55 AM EST Oxygen Saturation 100% 05/04/2023 9:55 AM EST Inhaled Oxygen Concentration - - Weight 49.1 kg (108 lb 3.2 oz) 05/04/2023 9:55 A M EST Height 154.9 cm (5' 0.98) 05/04/2023 9:55 AM ES T Body Mass Index 20.45 05/04/2023 9:55 AM EST documented in this encounter Progress Notes * Mary Nails APRN - 05/04/2023 10:00 AM EST Subjective Patient ID: Linda Serrano is a 77 y.o. female. Patient Active Problem List Diagnosis Osteopenia half-way current use of aromatase inhibitor Gastroparesis Pre-diabetes Malignant neoplasm of left breast in female, estrogen receptor positive Dx: 12/05/19 [facility] IPMN (intraductal papillary mucinous neoplasm) AK (actinic [...] specimens had focally suggestive angiolymphatic invasion. ER-pos; [place]-neg; HER2=2+. 02/06/01: R MRM/ax dissection. On path, [...] b/o same side effects after 4 months. 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, WI negative, HER2 negative PET/CT no mets 12/04, done for IPMN Simple mastectomy 01/04 1.5 cm invasive lobular carcinoma 0/2 axillary nodes Oncotype 23, no chemo Initiate anastrozole 02/03 Start prolia 05/08 for osteoporosis prevention Genetic testing 04/05: Low penetrance CHEK2 Osteoporosis L Hip (T-2.6) 01/07, pt opted to stay on AI Right breast cancer 2000 Invasive lobular carcinoma Mastectomy 2/9 positive lymph nodes Adjuvant AC followed by T Gonzalez x5 years did not tolerate letrozole/Aromasin Osteopenia 2019 T score -2.1 Fosamax in the past Osteoporosis 2022 T score -2.6 Prolia started 05/08 every 6mos HPI Maricruz is generally doing quite well. She has been healthy and has no new health concerns. She deniesany bothersome side effects from the Arimidex. She is taking it daily with no missed doses. No hot flashes, muscle aches or vaginal dryness. Occasional headaches, unchanged. She reports some numbness in her left middle finger that her PCP has told her is Raynaud's. She does report occasional white discoloration and cold temp of this finger. She does report some soft stools and occasional diarrhea. She takes a senna daily as advised by GI to avoid constipation. No blood or pain with loose stools. She is less active during the winter but walks when she can. She does take care shoveling and snow removal at home and manages this well. Review of Systems Constitutional: Negative for fatigue and fever. HENT: Negative for mouth sores. Respiratory: Negative for cough and shortness of breath. Cardiovascular: Negative for chest pain and leg swelling. Gastrointestinal: Positive for diarrhea. Negative for abdominal pain, blood in stool, constipation,nausea and vomiting. Musculoskeletal: Negative for arthralgias, back pain and gait problem. Skin: Negative for rash. Neurological: Negative for dizziness, weakness and numbness. Hematological: Negative for adenopathy. Objective BP 142/74 (Patient Position: Sitting) Pulse 72 Temp 36.4 ??C (97.5 ??F) (Temporal) Resp 16 Ht 154.9 cm (5' 0.98) Wt 49.1 kg (108 lb 3.2 oz) SpO2 100% BMI 20.45 kg/m?? Recent Results (from the past 72 hour(s)) Comprehensive metabolic panel (non-fasting) Result Value Ref Range Glucose Lvl 104 BUN 15 Creatinine 0.7 Sodium 134 (L) Potassium 4.7 Calcium 9.3 Total Protein 7.5 Albumin 4.1 Total Bilirubin 0.7 Alk Phos 115 AST 42 (H) ALT 76 (H) Physical Exam Constitutional: General: She is not in acute distress. Appearance: Normal appearance. HENT: Mouth/Throat: Mouth: Mucous membranes are moist. Cardiovascular: Rate and Rhythm: Normal rate. Pulmonary: Effort: Pulmonary effort is normal. No respiratory distress. Breath sounds: No wheezing. Abdominal: General: Abdomen is flat. There is no distension. Palpations: Abdomen is soft. There is no mass. Tenderness: There is abdominal tenderness. There is no guarding. Comments: Mild tenderness throughout Lymphadenopathy: Cervical: No cervical adenopathy. Psychiatric: Mood and Affect: Mood normal. Assessment and Plan 77-year-old female with an early stage low risk left breast cancer diagnosed in 11/2019 for which she is on hormonal therapy- Arimidex - started 01/2020. No signs of local or systemic recurrence. She has had abnormal LFTs /IPMN. S/p whipple 03/2020. Her last imaging for this was 01/07- She is onCreon with meals. She has annual surveillance with [facility] General Surgery for this. Last visit 12/2022. Last DEXA scan showed decreased T score of -2.6 in the left hip, down from -2.1. After discussion at that time she opted to remain on Arimidex as she is tolerating it well and it decreases risk of breast cancer recurrance. She continues to tolerate it well. Plan: Continue on Arimidex daily for 5 years (01/2025) started 01/2020 Continue with Prolia every 6mos. Given today. Plan to repeat DEXA in about 2yrs Continue with visits every 6mos Mammograms not indicated due to bilateral mastectomy. documented in this encounter Plan of Treatment Upcoming Encounters Date Type Department Care Team (Late st Contact Info) Description 11/02/2023 1:00 PM EDT Office Visit Hematology/Oncology at [address] [phone] Mary Nails APRN [address] [place] [address] 11/02/2023 1:30 PM EDT Infusion Hematology Oncology at [address] [phone] documented as of this encounter Procedures Procedure Name Priority Date/Time Associated Diagnosis Comments COMPREHENSIVE METABOLIC PANEL (NON-FASTING) Routine 05/04/2023 documented in this encounter Results * (ABNORMAL) Comprehensive metabolic panel (non-fasting) (05/04/2023) Glucose Lvl 104 BUN 15 Creatinine 0.7 Sodium 134(L) Potassium 4.7 Calcium 9.3 Total Protein 7.5 Albumin 4.1 Total Bilirubin 0.7 Alk Phos 115 AST 42(H) ALT 76(H) Blood 05/04/2023 Historical Provider CHEMISTRY ORDERAB LES documented in this encounter Visit Diagnoses Diagnosis Malignant neoplasm of upper-outer quadrant of left breast in female, estrogen receptor positive documented in this encounter Care Teams Professor Sculpture Relationship Specialty Start Date End Date Delaney JamesJESUS ALBERTO noriega [address] [place] [address] PCP - General Family Medicine 09/23/19 documented as of this encounter
--- OUTSIDE RECORDS SUMMARY | 2023-11-02 02:26 | XMS_ITS | Encounter Summary ---
Author Organization [facility] Address [facility] [place] [address] Care Team Providers Care Web Developer Name Role Phone Zeny James APRN Primary Care Provider [phone] Reason for Visit * Reason Comments Basal Cell Carcinoma Encounter Details Date Type Department Care Team (Latest Contact Info) Description 02/20/2023 10:45 AM EST Clinical Support Dermatology at [facility] [address] [place] [address] Jayro Mack MD [facility] [address] [place] [address] Basal cell carcinoma (BCC) of left nasal [...] as of this encounter Progress Notes * Essie Portillo RN - 02/20/2023 10:45 AM EST Mohs consultation and preoperative note (H&P) Patient Name: Linda Serrano Age: 77 y.o. Date of : 1945 Today's Date: 02/20/2023 REFERRING PROVIDER: Estela Velasquez MD CC: Mohs micrographic surgery for treatment of a cutaneous tumor HPI: Linda Serrano is a 77 y.o. female presenting for biopsy-proven basal cell carcinoma, superficial/ nodular location on the left nasal sidewall. The dermatologic preoperative information sheet was reviewed with pertinent positive and negative as below. DERMATOLOGIC PRE-OPERATIVE EVALUATION AND REVIEW OF SYSTEMS History of Mohs surgery? no If yes, have you ever had Mohs surgery with Dr. Mack? no Pacemaker/Defibrillator? no Joint replacement or other implantable devices (e.g. Cochlear implant)? If yes then when? no Do you take a blood thinner? Yes Aspirin 81mg daily History of organ transplant? no History of artificial valve or stroke? no History of liver disease or bleeding disorder? no Do you have any medical problems that may affect your upcoming surgery? no Do you have any concerns regarding your upcoming surgery? Patient requesting to have a new red lesion on right side of nose evaluated on day of surgery. FSE with Dr. Velasquez 03/01/23, if need for followup try to schedule same day. We ask patients to discontinue Fish oil/Multivitamin/Vit E/?? supplements and natural medicines not prescribed by a physician 1 week prior to surgery. SOCIAL HISTORY: Makes Own Decisions Yes Hearing aid or other devices: Yes , full top dentures Relevant travel history or future plans: none Tobacco use (amount per day, type of tobacco): no Do you have any physical limitations that may affect your surgery?: no ALLERGIES: Allergies reviewed MEDICATIONS: Medications reviewed documented in this encounter Plan of Treatment Upcoming Encounters Date Type Department Care Team (Late st Contact Info) Description 11/02/2023 1:00 PM EDT Office Visit Hematology/Oncology at [address] [phone] Mary Nails APRN [address] [place] [address] MEDICAL ONCOLOGY [place], [place] [phone] 11/02/2023 1:30 PM EDT Infusion Hematology Oncology at [address] [phone] documented as of this encounter Visit Diagnoses Diagnosis Basal cell carcinoma (BCC) of left nasal sidewall documented in this encounter Care Teams Web Developer Relationship Specialty Start Date End Date Zeny James APRN [address] [place] [address] [address] [place], [place] [address] PCP - General Family Medicine 09/23/19 documented as of this encounter
--- OUTSIDE RECORDS SUMMARY | 2023-11-02 02:26 | XMS_ITS | Encounter Summary ---
Author Organization [facility] Address [facility] [place] [address] Care Team Providers Care Lvn Lpn Name Role Phone Zeny James APRN Primary Care Provider Encounter Details Date Type Department Care Team (Late st Contact Info) Description 02/09/[address] [place] [phone] Essie Portillo, RN Social History Tobacco Use Types Packs/Day Years [...] encounter Miscellaneous Notes * Telephone Encounter - Essie Portillo RN - 02/09/2023 2:42 PM EDT Mohs consultation and preoperative note (H&P) Patient Name: Linda Serrano Age: 77 y.o. Date of : 1945 Today's Date: 02/09/2023 REFERRING PROVIDER: Estela Velasquez MD CC: Mohs [...] you ever had Mohs surgery with Dr. Evans? no Pacemaker/Defibrillator? no Joint replacement or other [...] 1:00 PM EDT Office Visit Hematology/Oncology at [address] [phone] Mary Nails APRN [address] [place] [address] MEDICAL ONCOLOGY [place], [place] [phone] 11/02/2023 1:30 PM EDT Infusion Hematology Oncology at [address] [phone] documented as of this encounter Visit Diagnoses Not on filedocumented in this encounter Care Teams Lvn Lpn Relationship Specialty Start Date End Date Zeny James APRN [address] [place] [address] [address] [place], [place] [address] PCP - General Family Medicine 09/23/19 documented as of this encounter
--- OUTSIDE RECORDS SUMMARY | 2023-11-02 02:26 | XMS_ITS | Encounter Summary ---
Author Organization [facility] Address [facility] [place] [address] Care Team Providers Care Buzzle Buffer Name Role Phone Zeny James APRN Primary Care Provider Encounter Details Date Type Department Care Team (Late st Contact Info) Description 02/08/[address] at [address] [place] [phone] Essie Portillo, RN Social History Tobacco Use [...] Miscellaneous Notes * Telephone Encounter - Essie Portillo, RN - 02/08/2023 2:46 PM EDT Returned patient's call. Message left. Essie Portillo, RN documented in this encounter Plan of Treatment Upcoming Encounters Date Type Department Care Team (Late st Contact Info) Description 11/02/2023 1:00 PM EDT Office Visit Hematology/Oncology at [address] [phone] Mary Nails APRN [address] [place] [address] MEDICAL ONCOLOGY [place], [place] [address] 11/02/2023 1:30 PM EDT Infusion Hematology Oncology at [address] [phone] documented as of this encounter Visit Diagnoses Not on filedocumented in this encounter Care Teams Buzzle Buffer Relationship Specialty Start Date End Date Zeny James APRN [address] [place], [place] [address] PCP - General Family Medicine 09/23/19 documented as of this encounter
--- OUTSIDE RECORDS SUMMARY | 2023-11-02 02:26 | XMS_ITS | Encounter Summary ---
Author Organization [facility] [place] [address] Care Team Providers Care Social Work Job Titles Name Role Phone Zeny James APRN Primary Care Provider [phone] Encounter Details Date Type Department Care Team (Late st Contact Info) Description 01/19/2023 2:00 PM EDT Office Visit Hematology/Oncology at [address] [phone] Jeffery Sanz MD [facility] HEMATOLOGY/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; Age-related osteoporosis without current pathological fracture Social History Tobacco Use Types Packs/Day Years [...] Sign Reading Time Taken Comments Blood Pressure 124/68 01/19/2023 1:08 PM EDT Pulse 94 01/19/2023 1:08 PM EDT Temperature 36 ??C (96.8 ??F) 01/19/2023 1:08 PM EDT Respiratory Rate 20 01/19/2023 1:08 PM EDT Oxygen Saturation 97% 01/19/2023 1:08 PM EDT Inhaled Oxygen Concentration - - Weight 47.2 kg (104 lb) 01/19/2023 1:08 PM EDT Height 154.9 cm (5' 0.98) 01/19/2023 1:08 PM ED T Body Mass Index 19.66 01/19/2023 1:08 PM EDT documented in this encounter Progress Notes * Jeffery Sanz MD - 01/19/2023 2:00 PM EDT Subjective Patient ID: Linda Serrano is a 77 y.o. 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 ER-pos; WA-neg; HER2=2+. 02/06/01: R MRM/ax dissection. On path, [...] b/o same side effects after 4 months. HPI 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, WA negative, HER2 negative PET/CT no mets 12/04, done for IPMN Simple mastectomy 01/04 1.5 cm invasive lobular carcinoma 0/2 axillary nodes Oncotype 23, no chemo Initiate anastrozole 02/03 Start prolia 05/08 for osteoporosis prevention Genetic testing 04/05: Low penetrance CHEK2 Osteoporosis L Hip (T-2.6) 01/07, pt opted to stay on AI Right breast cancer 2000 Invasive lobular carcinoma Mastectomy 05/26 positive lymph nodes Adjuvant AC followed by T Gonzalez x5 years did not tolerate letrozole/Aromasin Osteopenia 2019 T score -2.1 Fosamax in the past IPMN S/p Whipple 04/05 Plan patient to return and discuss potential change of hormonal therapy after her bone density study showed osteopenia in the spine but osteoporosis in the left hip with a T score of -2.6. This is down from 2.1 therapy. After discussing the pros and cons the patient wanted to stay on the Arimidex. She is tolerating itwell and has more cancer recurrence. She does feel osteoporosis complications. We will continue with her Prolia every 6 months. We will see her back in April when she is due for her next checkup and next Prolia. documented in this encounter Plan of Treatment Upcoming Encounters Date Type Department Care Team (Late st Contact Info) Description 11/02/2023 1:00 PM EDT Office Visit Hematology/Oncology at [address] [phone] Mary Nails APRN [address] [place] [address] MEDICAL ONCOLOGY [place], [place] [address] 11/02/2023 1:30 PM EDT Infusion Hematology Oncology at [address] [phone] documented as of this encounter Visit Diagnoses Diagnosis Malignant neoplasm of left breast in female, estrogen receptor positive, unspecified site of breast USP current use of aromatase inhibitor Use of aromatase inhibitors Age-related osteoporosis without current pathological fracture Senile osteoporosis documented in this encounter Care Teams Social Work Job Titles Relationship Specialty Start Date End Date Zeny James APRN [facility] [address] [place] [address] PCP - General Family Medicine 09/23/19 documented as of this encounter
--- OUTSIDE RECORDS SUMMARY | 2023-11-02 02:26 | XMS_ITS | Encounter Summary ---
Author Organization [facility] Address [facility] [place] [address] Care Team Providers Care Boat Dock Operator Name Role Phone Zeny James TREE SURGEON Primary Care Provider Encounter Details Date Type Department Care Team (Latest Contact Info) Description 03/01/2023 Travel Social History Tobacco Use Types Packs/Day [...] PM EDT Office Visit Hematology/Oncology at [address] [phone] Mary Nails APRN [address] [place] [address] MEDICAL ONCOLOGY [place], [place] [address] 11/02/2023 1:30 PM EDT Infusion Hematology Oncology at [address] [phone] documented as of this encounter Visit Diagnoses Not on filedocumented in this encounter Care Teams Boat Dock Operator Relationship Specialty Start Date End Date Zeny James APRN [address] [place] [address] [address] [place] [address] PCP - General Family Medicine 09/23/19 documented as of this encounter
--- OUTSIDE RECORDS SUMMARY | 2023-11-02 02:26 | XMS_ITS | Encounter Summary ---
Author Organization [facility] Address [facility] [place] [address] Care Team Providers Care Fly Frame Tender Name Role Phone Zeny James APRN Primary Care Provider Encounter Details Date Type Department Care Team (Late st Contact Info) Description 01/11/2023 Orders [place] [phone] Regino Carolina MD [facility] [place] [address] Social History Tobacco Use Types Packs/Day Years [...] 1:00 PM EDT Office Visit Hematology/Oncology at [address] [phone] Mary Nails APRN [address] [place] [address] [place] [address] 11/02/2023 1:30 PM EDT Infusion Hematology Oncology at [address] [phone] documented as of this encounter Visit Diagnoses Not on filedocumented in this encounter Care Teams Fly Frame Tender Relationship Specialty Start Date End Date Zeny James APRN [address] [place] [address] PCP - General Family Medicine 09/23/19 documented as of this encounter
--- OUTSIDE RECORDS SUMMARY | 2023-11-02 02:27 | XMS_ITS | Encounter Summary ---
[facility] [place] [address] Care Team Providers Care Fine Craft Artist Name Role Phone Zeny James ICT TRAINER Primary Care Provider Encounter Details Date Type Department Care Team (Late st Contact Info) Description 07/22/2022 Specialty [place] [phone] Maylin Qiu, [facility] Social History Tobacco Use Types Packs/Day Years [...] of this encounter Progress Notes * Maylin Qiu RPH - 07/22/2022 12:09 PM EDT error documented in this encounter Plan of Treatment Upcoming Encounters Date Type Department Care Team (Late st Contact Info) Description 11/02/2023 1:00 PM EDT Office Visit Hematology/Oncology at [address] [phone] Mary Nails APRN [address] [place] [address] MEDICAL ONCOLOGY [place], [place] [phone] 11/02/2023 1:30 PM EDT Infusion Hematology Oncology at [address] [phone] documented as of this encounter Visit Diagnoses Not on filedocumented in this encounter Care Teams Fine Craft Artist Relationship Specialty Start Date End Date Zeny James APRN [address] [place], [place] [address] PCP - General Family Medicine 09/23/19 documented as of this encounter
--- OUTSIDE RECORDS SUMMARY | 2023-11-02 02:27 | XMS_ITS | Encounter Summary ---
Author Organization [facility] [place] [address] Care Team Providers Care River Transportation Worker Name Role Phone Zeny James APRN Primary Care Provider [phone] Encounter Details Date Type Department Care Team (Late st Contact Info) Description 01/11/2021 4:00 PM EDT Office Visit Dermatology at [facility] [address] [place] [address] Estela Cavazos MD [facility] [place] [address] History of basal cell carcinoma Social History Tobacco Use Types Packs/Day Years Used Date Smoking Tobacco: Never Smokeless Tobacco: Never Alcohol Use Standard Drinks/Week Comments Not Currently 0 (1 standard drink = 0.6 oz pur e alcohol) Sex and Gender Information Value Date Recorded Sex Assigned at Not on file Gender Identity Not on file Sexual Orientation Not on file documented as of this encounter Progress Notes * Estela Cavazos MD - 01/11/2021 4:00 PM EDT Images from the original note were not included. DEPARTMENT OF DERMATOLOGY Medical Dermatology Clinic Provider: ESTELA CAVAZOS MD Patient's preferred name Linda Preferred contact method for results []?myDH []?Letter [x]?Phone: Home Detailed phone message OK? Yes ?? PAST MEDICAL HISTORY If no, type N. If yes, type date, location, treatment Melanoma N Dysplastic nevi N SCC N BCC ?? 01/2010??back??[facility] AKs LN2 UV Exposure & Protection N Other relevant past medical history (i.e. eczema, psoriasis, birthmarks, immunosuppression) + SKs + Benign Nevi + Solar Lentigines + Lobular Carcinoma of the Right Breast (2000) + Cancer of the Let Breast, taking Anastrozole 1mg + HTN FAMILY HISTORY If yes, details Melanoma N NMSC N Other relevant family history N SOCIAL HISTORY Has garcia Xtreme Installsharjeet ?? PRE-PROCEDURE SCREENING If no, type N. If yes, include details below Allergy to lidocaine, epinephrine, Dermabond, chlorhexidine, or adhesives: No Bleeding disorder or blood thinners: ASA 81mg, Vitamin E, Pravastatin 20mg, [place]-3 Pacemaker, defibrillator, deep brain stimulator, cochlear implant: No History of Present Illness: Linda Serrano is a 75 y.o. Patient returns to clinic today for an ED&C of a biopsy proven BCC in the right posterior calf. Last visit at [facility] Derm: 12/03/2020 Last visit with this provider: 12/03/2020 Medications: Reviewed in eD-H Allergies: Reviewed in eD-H Skin Examination: Focused skin examination of the right posterior calf was normal with the exception of the findings below. Assessment/Plan Procedure: Electrodesiccation and curettage Time of procedure: 345 Site: Right posterior calf Post-curettage defect size: 0.6 cm Discussed indications and expectations including risks and benefits. Verbal consent obtained. Skin prep. Local anesthesia: 1% lidocaine with epinephrine. The entire lesion plus a small margin was treated by curettage and electrodesiccation x3. No complications. Wound dressed. Expectations (including discomfort management) and wound care reviewed. Other: ??? N/A RTC: As scheduled for follow up []Note routed to accredited legal secretary []Recall placed in scheduling system []Appointment scheduled at checkout Scribe attestation: Laura Cruz LPN has performed the documentation for this encounter in thepresence of and acting as a scribe for ESTELA CAVAZOS MD. I performed the above scribed service and agree with the accuracy of the documentation in this encounter. Reviewed and signed by: ESTELA CAVAZOS MD Dermatology [facility] documented in this encounter Plan of Treatment Upcoming Encounters Date Type Department Care Team (Late st Contact Info) Description 11/02/2023 1:00 PM EDT Office Visit Hematology/Oncology at [address] [phone] Mary Nails APRN [address] [place] [address] MEDICAL ONCOLOGY [place], [place] [phone] 11/02/2023 1:30 PM EDT Infusion Hematology Oncology at [address] [phone] documented as of this encounter Visit Diagnoses Diagnosis History of basal cell carcinoma Personal history of other malignant neoplasm of skin documented in this encounter Care Teams River Transportation Worker Relationship Specialty Start Date End Date Zeny James APRN [address] [place] [address] [address] [place], [place] [address] PCP - General Family Medicine 09/23/19 documented as of this encounter
--- OUTSIDE RECORDS SUMMARY | 2023-11-02 02:27 | XMS_ITS | Encounter Summary ---
Author Organization [facility] Address [facility] [place] [address] Care Team Providers Care Research Development Director Name Role Phone Zeny James APRN Primary Care Provider Encounter Details Date Type Department Care Team (Late st Contact Info) Description 09/08/2021 Orders [place] [address] Regino Carolina MD [facility] [place] [address] History of pancreatectomy; Exocrine pancreatic insufficiency; Iron deficiency anemia secondary to inadequate dietary iron intake; Vitamin B12 deficiency; Vitamin D deficiency Social History Tobacco Use Types Packs/Day Years [...] 1:00 PM EDT Office Visit Hematology/Oncology at [address] [phone] Mary Nails APRN [address] [place] [address] MEDICAL ONCOLOGY [place], [place] [phone] 11/02/2023 1:30 PM EDT Infusion Hematology Oncology at [address] [phone] documented as of this encounter Results * Vitamin E (12/28/2021 12:23 PM EDT) [facility] Vitamin E 14.5 5.5 - 17.0 mg/L [facility] Comment: ADDITIONAL INFORMATION This test was developed and its performance characteristics determined by [facility] in a manner consistent with CLIA requirements. This test has not been cleared or approved by the U.S. Food and Drug Administration. Test Performed by: [facility] - [address] [address] Mechanical Technical Service Specialist: Denzel Angel M.D. Ph.D.; IA# [id number] Blood 12/28/2021 12:2 3 PM EDT 12/28/2021 1:56 PM EDT Narrative Resulting Agency Comment Spec In Lab Regino Carolina MD CHEMISTRY ORDERABL ES Performing Organization Address [facility]/ZIP Co de Phone Number [facility] [place] [address] * Vitamin D, 25-Hydroxy (12/28/2021 12:23 PM EDT) 25-OH Vit D Total 32 21 - 100 ng/mL [facility] 25-OH Vit D Interp Sufficient [facility] Blood 12/28/2021 12:2 3 PM EDT 12/28/2021 12:26 PM EDT Narrative Resulting Agency Comment Spec In Lab Regino Carolina MD CHEMISTRY ORDERABL ES Performing Organization Address [facility]/ZIP Co de Phone Number [facility] [place] [address] * Vitamin B12 (12/28/2021 12:23 PM EDT) Vitamin B-12 748 232 - 1,245 pg/mL [facility] Blood 12/28/2021 12:2 3 PM EDT 12/28/2021 12:26 PM EDT Narrative Resulting Agency Comment Spec In Lab Regino Carolina MD CHEMISTRY ORDERABL ES Performing Organization Address City/[facility]/ZIP Co de Phone Number [facility] [place] [address] * Vitamin A (12/28/2021 12:23 PM EDT) Vitamin A 41.4 32.5 - 78.0 mcg/dL [facility] Comment: ADDITIONAL INFORMATION This test was developed and its performance characteristics determined by [facility] in a manner consistent with CLIA requirements. This test has not been cleared or approved by the U.S. Food and Drug Administration. Test Performed by: [facility] - [facility] [address] [place] [address] Mechanical Technical Service Specialist: Denzel Angel M.D. Ph.D.; CLIA# [id number] Blood 12/28/2021 12:2 3 PM EDT 12/28/2021 1:56 PM EDT Narrative Resulting Agency Comment Spec In Lab Regino Carolina MD CHEMISTRY ORDERABL ES Performing Organization Address City/[facility] Co de Phone Number [facility] [place] [address] * (ABNORMAL) Iron and TIBC (12/28/2021 12:23 PM EDT) Iron 200(H) 30 - 150 mcg/dL [facility] TIBC 351 250 - 450 mcg/dL [facility] Iron Saturation 57(H) 20 - 50 % [facility] Blood 12/28/2021 12:2 3 PM EDT 12/28/2021 12:26 PM EDT Narrative Resulting Agency Comment Spec In Lab Regino Carolina MD CHEMISTRY ORDERABL ES Performing Organization Address City/[facility]/ZIP Co de Phone Number [facility] [place] [address] * Ferritin (12/28/2021 12:23 PM EDT) Ferritin 38 30 - 400 ng/mL [facility] Comment: Pediatric reference ranges not verified at [facility], interpret with caution. Reference ranges for females greater than 50 years of age approach values for men, i.e., 30-400 ng/mL. Blood 12/28/2021 12:2 3 PM EDT 12/28/2021 12:26 PM EDT Narrative Resulting Agency Comment Spec In Lab Regino Carolina MD CHEMISTRY ORDERABL ES [facility] [place] [address] documented in this encounter Visit Diagnoses Diagnosis History of pancreatectomy Exocrine pancreatic insufficiency Other specified disease of pancreas Iron deficiency anemia secondary to inadequate dietary iron intake Vitamin B12 deficiency Other B-complex deficiencies Vitamin D deficiency Unspecified vitamin D deficiency documented in this encounter Care Teams Research Development Director Relationship Specialty Start Date End Date Zeny James APRN [address] [place] [address] PCP - General Family Medicine 09/23/19 documented as of this encounter
--- OUTSIDE RECORDS SUMMARY | 2023-11-02 02:27 | XMS_ITS | Encounter Summary ---
Author Organization Formerly [facility] [place] [address] Care Team Providers Care Cell Builder Name Role Phone Zeny James HOME VISITS NURSE Primary Care Provider Reason for Referral * Physical Therapy (Routine) - Closed Specialty Diagnoses / Procedures Referred By Nir potts Referred To Contact Diagnoses Malignant neoplasm of upper-outer quadrant of left breast in female, estrogen receptor positive Jeffrey Sanz MD [facility] HEMATOLOGY/[place] [address] Referral ID Status Reason Start Date Expiration Date V isits Requested Visits Authorized [id number] Closed Evaluate and Treat 07/25/2022 01/21/2023 12 12 Encounter Details Date Type Department Care Team (Late st Contact Info) Description 07/25/2022 Orders Only Hematology [place] [address] Jeffery Sanz MD [facility] HEMATOLOGY/[place] [address] Malignant neoplasm of left breast in female, estrogen receptor positive, unspecified site of breast; Malignant neoplasm of upper-outer quadrant of left [...] 1:00 PM EDT Office Visit Hematology/Oncology at [address] [phone] Mary Nails APRN [address] [place] [address] [place] [address] 11/02/2023 1:30 PM EDT Infusion Hematology Oncology at [address] [phone] Scheduled Referrals Name Type Priority Associated Diagnoses Orde r Schedule Referral to Physical Therapy Outpatient Referral Routine Malignant neoplasm of upper-outer quadrant of left breast in female, estrogen receptor positive Ordered: 07/25/2022 documented as of this encounter Visit Diagnoses Diagnosis Malignant neoplasm of left breast in female, estrogen receptor positive, unspecified site of breast Malignant neoplasm of upper-outer quadrant of left breast in female, estrogen receptor positive documented in this encounter Care Teams Cell Builder Relationship Specialty Start Date End Date Vasutom JESUS ALBERTO Moura [address] [place] [address] [address] [facility] [address] [place] [address] PCP - General Family Medicine 09/23/19 documented as of this encounter
--- OUTSIDE RECORDS SUMMARY | 2023-11-02 02:27 | XMS_ITS | Encounter Summary ---
Author Organization [facility] Address [facility] [place] [address] Care Team Providers Care Software Performance Engineer Name Role Phone Zeny James APRN Primary Care Provider [phone] Reason for Visit * Reason Comments Injections Prolia * Treatment/Therapy Plan Authorization (Routine) - Authorized Specialty Diagnoses / Procedures Referred By Nir t Referred To Contact Hematology and Oncology Diagnoses Malignant neoplasm of left breast in female, estrogen receptor positive, unspecified site of breast Osteopenia, unspecified location 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 [address] Jeffery Sanz MD [facility] [address] HEMATOLOGY/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 OBJECTIVE LAB DATA: calcium 9.0, CrCl 51.359 prolia given in left upper arm REACTIONS (DESCRIPTION, TIME, INTERVENTION AND EFFECTIVENESS) none ASSESSMENT Linda Serrano was awake, alert and he tolerated treatment well. PLAN Return to clinic per routine. documented in this encounter Plan of Treatment Upcoming Encounters Date Type Department Care Team (Late st Contact Info) Description 11/02/2023 1:00 PM EDT Office Visit Hematology/Oncology at [address] [phone] Mary Nails APRN [address] [place] [address] MEDICAL ONCOLOGY [place], [place] [address] 11/02/2023 1:30 PM EDT Infusion Hematology Oncology at [address] [phone] documented as of this encounter Visit Diagnoses Diagnosis Osteopenia, unspecified location [facility] current use of aromatase inhibitor Use of aromatase inhibitors Malignant neoplasm of left breast in female, estrogen receptor positive, unspecified site of breast documented in this encounter Administered Medications Inactive Administered Medications - up to 3 most recent administrations Medication Order MAR Action Action Date Dose Rate Site denosumab (Prolia) (60 mg/mL) subcutaneous injection 60 mg 60 mg, Subcutaneous, ONCE, 1 dose, On Pamella 05/12/22 at 1330, Bring to room temperature 15-30 mins before administration. Monitor patients with severe impairment (CRCL less than 30 mL/minute or on dialysis) due to increased risk of hypocalcemia., Restricted to outpatient use. Requires P&T approval for inpatient use. Use in outpatient setting Given 05/12/2022 2:00 PM EST 60 mg Left Arm documented in this encounter Care Teams Software Performance Engineer Relationship Specialty Start Date End Date Zeny James APRN [facility] [address] [place] [address] PCP - General Family Medicine 09/23/19 documented as of this encounter
--- OUTSIDE RECORDS SUMMARY | 2023-11-02 02:27 | XMS_ITS | Encounter Summary ---
Author Organization [facility] [place] [address] Care Team Providers Care Aerial Planting And Cultivation Manager Name Role Phone Zeny James APRN Primary Care Provider Reason for Visit * Reason Onset Date Comments Follow-up 07/28/2022 Bra Fitting Encounter Details Date Type Department Care Team (Late st Contact Info) Description 07/28/2022 Telephone Hematology Oncology at [address] [phone] Thuy Scott, RN Follow-up (Bra Fitting) Social History Tobacco Use Types Packs/Day Years [...] encounter Miscellaneous Notes * Telephone Encounter - Thuy Scott RN - 07/28/2022 2:32 PM EDT Order for bra fitting sent to [facility] by social secretary. She called patient to notify her. There is an order in system. * Telephone Encounter - Thuy Scott RN - 07/28/2022 2:31 PM EDT ----- Message from Ofelia Aj sent at 07/28/2022 11:20 AM EDT ----- Regarding: RE: Prosthetic Bra They dont, I sent to [facility] instead. I called Maricruz to let her know ----- Message ----- From: Thuy Scott RN Sent: 07/28/2022 10:48 AM EDT To: Ofelia Aj Subject: RE: Prosthetic Bra Ofelia, Did you determine if [facility] doing fittings? ----- Message ----- From: Thuy Scott RN Sent: 07/25/2022 12:00 AM EDT To: Thuy Scott RN Subject: FW: Prosthetic Bra ----- Message ----- From: Ofelia Aj Sent: 07/20/2022 12:55 PM EDT To: Thuy Scott, RN Subject: FW: Prosthetic Bra Hey do you know if [facility] is doing fittings? If you don't I'll call but will need a referral for the fitting either way ----- Message ----- From: Ofelia Aj Sent: 07/20/2022 12:51 PM EDT To: [facility] Hem Onc Nurse Subject: Prosthetic Bra Maricruz Olmos is looking for a referral to get fitted for a prosthetic bra. Do you happen to know if [facility] iscurrently doing fittings? My guess is no but figured I'd check with you first. documented in this encounter Plan of Treatment Upcoming Encounters Date Type Department Care Team (Late st Contact Info) Description 11/02/2023 1:00 PM EDT Office Visit Hematology/Oncology at [address] [phone] Mary Nails REPORT DEVELOPER [address] [place] [address] MEDICAL ONCOLOGY [place], [place] [address] 11/02/2023 1:30 PM EDT Infusion Hematology Oncology at [address] [phone] documented as of this encounter Visit Diagnoses Not on filedocumented in this encounter Care Teams Aerial Planting And Cultivation Manager Relationship Specialty Start Date End Date Zeny James APRN [address] [place] [address] PCP - General Family Medicine 09/23/19 documented as of this encounter
--- OUTSIDE RECORDS SUMMARY | 2023-11-02 02:27 | XMS_ITS | Encounter Summary ---
Author Organization Formerly [facility] [place] [address] Care Team Providers Care Hydraulic Barker Operator Name Role Phone Zeny James APRN Primary Care Provider Encounter Details Date Type Department Care Team (Late st Contact Info) Description 09/08/2021 Telephone Hematology [place] [phone] Social History Tobacco Use [...] place to sleep or slept in a fci (including now)? No 04/29/2021 Sex and Gender Information Value Date Recorded Sex Assigned at Not on file Gender Identity Not on file Sexual Orientation Not on file documented as of this encounter Miscellaneous Notes * Telephone Encounter - Aurelia Negrete RD - 09/08/2021 1:45 PM EDT Called from Maricruz - inquired about addition of post whipple nutrition labs when she sees Dr Sanz in October at [facility]. States that she is feeling well--weight is at 103 pounds, stable. Moving bowels 2-3 times in the morning. Frequently loose, in midst of bfast or following bfast. Creon 24: Dosing 3 with bfast (light and lively yogurt, 1/2 cup of blueberries, 2 T jessica seeds and flax seed, granola) and 4 with lunch and dinner and [address] Sanz at [facility] - November 11/could I coordinate labs for that date? Wt Readings from Last 3 Encounters: 05/13/21 48 kg (105 lb 12.8 oz) 04/29/21 48.5 kg (107 lb) 01/11/21 48.8 kg (107 lb 9.6 oz) Plan: 1. AMANDA: recommend increase to 4 Creon 24 with breakfast and consider reducing to 1 T of flax seed/jessica seed in the morning. 2. I will pend post whipple nutrition labs to Dr Regino Carolina for Maricruz for 11/11/21. 3. I will request f/u call with Maricruz on November 15, 2021. documented in this encounter Plan of Treatment Upcoming Encounters Date Type Department Care Team (Late st Contact Info) Description 11/02/2023 1:00 PM EDT Office Visit Hematology/Oncology at [address] [phone] Mary Nails APRN [address] [place] [address] MEDICAL ONCOLOGY [place], [place] [phone] 11/02/2023 1:30 PM EDT Infusion Hematology Oncology at [address] [phone] documented as of this encounter Visit Diagnoses Not on filedocumented in this encounter Care Teams Hydraulic Barker Operator Relationship Specialty Start Date End Date Zeny James APRN [address] [place] [address] [address] [place] [address] PCP - General Family Medicine 09/23/19 documented as of this encounter
--- OUTSIDE RECORDS SUMMARY | 2023-11-02 02:27 | XMS_ITS | Encounter Summary ---
Author Organization [facility] [place] [address] Care Team Providers Care Data Analyst Name Role Phone Zeny James COMMERCIAL LEASING AGENT Primary Care Provider Encounter Details Date Type Department Care Team (Latest Contact Info) Description 12/28/2021 12:30 PM EDT Laboratory Appointment Lab [address] [phone] Iron deficiency anemia secondary to inadequate dietary iron intake; Vitamin D deficiency; Vitamin B12 deficiency; Exocrine pancreatic insufficiency; IPMN (intraductal papillary mucinous [...] 1:00 PM EDT Office Visit Hematology/Oncology at [address] [phone] Mary Nails APRN [address] [place] [address] MEDICAL ONCOLOGY [place], [place] [phone] 11/02/2023 1:30 PM EDT Infusion Hematology Oncology at [address] [phone] documented as of this encounter Procedures Procedure Name Priority Date/Time Associated Diagnosis Comments HC CREATININE STAT 12/28/2021 12:23 PM EDT IPMN (intraductal papillary mucinous neoplasm) HC IRON BINDING CAPACITY STAT 12/28/2021 12:23 PM EDT Iron deficiency anemia secondary to inadequate dietary iron intake HC PCH VITAMIN A STAT 12/28/2021 12:2 3 PM EDT Exocrine pancreatic insufficiency HC VITAMIN D TOTAL-25 HYDROXY STAT 12/28/2021 12:23 PM EDT Vitamin D deficiency HC PCH VITAMIN E STAT 12/28/2021 12:2 3 PM EDT Iron deficiency anemia secondary to inadequate dietary iron intake HC FERRITIN, SERUM STAT 12/28/2021 12 :23 PM EDT Iron deficiency anemia secondary to inadequate dietary iron intake HC VITAMIN B12 SERUM STAT 12/28/2021 12:23 PM EDT Vitamin B12 deficiency documented in this encounter Results * (ABNORMAL) Creatinine (12/28/2021 12:23 PM EDT) Creatinine 0.53(L) 0.70 - 1.20 mg/dL [facility] Estimated GFR 96 >=60 mL/min/1. 73 m?? [facility] Comment: This patient's estimated GFR was [...] and symptoms in addition to eGFR. Blood 12/28/2021 12:2 3 PM EDT 12/28/2021 12:26 PM EDT Narrative Resulting Agency Comment Spec In Lab Regino Carolina MD CHEMISTRY ORDERABL ES [facility] [place] [address] * Ferritin (12/28/2021 12:23 PM EDT) Ferritin 38 30 - 400 ng/mL [facility] Comment: Pediatric reference ranges not verified at [facility], interpret with caution. Reference ranges for females greater than 50 years of age approach values for men, i.e., 30-400 ng/mL. Blood 12/28/2021 12:2 3 PM EDT 12/28/2021 12:26 PM EDT Narrative Resulting Agency Comment Spec In Lab Regino Carolina MD CHEMISTRY ORDERABL ES Performing Organization Address [facility] Co de Phone Number [facility] [place] [address] * (ABNORMAL) Iron and TIBC (12/28/2021 12:23 PM EDT) Iron 200(H) 30 - 150 mcg/dL [facility] TIBC 351 250 - 450 mcg/dL [facility] Iron Saturation 57(H) 20 - 50 % [facility] Blood 12/28/2021 12:2 3 PM EDT 12/28/2021 12:26 PM EDT Narrative Resulting Agency Comment Spec In Lab Regino Carolina MD CHEMISTRY ORDERABL ES Performing Organization Address [facility] de Phone Number [facility] [place] [address] * Vitamin A (12/28/2021 12:23 PM EDT) Vitamin A 41.4 32.5 - 78.0 mcg/dL [facility] Comment: ADDITIONAL INFORMATION This test was developed and its performance characteristics determined by [facility] in a manner consistent with CLIA requirements. This test has not been cleared or approved by the U.S. Food and Drug Administration. Test Performed by: [facility] [place] [address] [place] [address] Fiberglass Ski Maker: Denzel Angel M.D. Ph.D.; CLIA# [id number] Blood 12/28/2021 12:2 3 PM EDT 12/28/2021 1:56 PM EDT Narrative Resulting Agency Comment Spec In Lab Regino Carolina MD CHEMISTRY ORDERABL ES [facility] [place] [address] * Vitamin B12 (12/28/2021 12:23 PM EDT) Vitamin B-12 748 232 - 1,245 pg/mL [facility] Blood 12/28/2021 12:2 3 PM EDT 12/28/2021 12:26 PM EDT Narrative Resulting Agency Comment Spec In Lab Regino Carolina MD CHEMISTRY ORDERABL ES Performing Organization Address [facility]/ZIP Co de Phone Number [facility] [place] [address] * Vitamin D, 25-Hydroxy (12/28/2021 12:23 PM EDT) Pathologist [facility] 25-OH Vit D Total 32 21 - 100 ng/mL [facility] 25-OH Vit D Interp Sufficient [facility] Blood 12/28/2021 12:2 3 PM EDT 12/28/2021 12:26 PM EDT Narrative Resulting Agency Comment Spec In Lab Regino Carolina MD CHEMISTRY ORDERABL ES Performing Organization Address [facility]/ZIP Co de Phone Number [facility] [place] [address] * Vitamin E (12/28/2021 12:23 PM EDT) [facility] Vitamin E 14.5 5.5 - 17.0 mg/L [facility] Comment: ADDITIONAL INFORMATION This test was developed and its performance characteristics determined by [facility] in a manner consistent with CLIA requirements. This test has not been cleared or approved by the U.S. Food and Drug Administration. Test Performed by: [facility] - [address] [address] Fiberglass Ski Maker: Denzel Angel M.D. Ph.D.; CLIA# [id number] Blood 12/28/2021 12:2 3 PM EDT 12/28/2021 1:56 PM EDT Narrative Resulting Agency Comment Spec In Lab Regino Carolina MD CHEMISTRY ORDERABL ES [facility] [place] [address] documented in this encounter Visit Diagnoses Diagnosis Iron deficiency anemia secondary to inadequate dietary iron intake Vitamin D deficiency Unspecified vitamin D deficiency Vitamin B12 deficiency Other B-complex deficiencies Exocrine pancreatic insufficiency Other specified disease of pancreas IPMN (intraductal papillary mucinous neoplasm) Neoplasm of unspecified nature of digestive system documented in this encounter Care Teams Data Analyst Relationship Specialty Start Date End Date Zeny James APRN [address] [place] [address] PCP - General Family Medicine 09/23/19 documented as of this encounter
--- OUTSIDE RECORDS SUMMARY | 2023-11-02 02:27 | XMS_ITS | Encounter Summary ---
Author Organization [facility] [place] [address] Care Team Providers Care Solar Sales Ambassador Name Role Phone Zeny James APRN Primary Care Provider Encounter Details Date Type Department Care Team (Late st Contact Info) Description 12/09/2020 Telephone Dermatology at [facility] [address] [place] [phone] Estela Velasquez MD [facility] MARCUS [place] [address] Social History Tobacco Use Types Packs/Day Years [...] encounter Miscellaneous Notes * Telephone Encounter - Kalpana Sanabria - 12/09/2020 10:30 AM EDT Sybil .. please call Maggie back regarding results. [Kalpana * Telephone Encounter - Linda Naranjo - 12/09/2020 8:20 AM EDT Patient Linda Serrano called returning a call to Sybil about pathology results. Please call herat [phone] and you may leave a detailed message if she does not answer. Thank you, Maricruz documented in this encounter Plan of Treatment Upcoming Encounters Date Type Department Care Team (Late st Contact Info) Description 11/02/2023 1:00 PM EDT Office Visit Hematology/Oncology at [address] [phone] Mary Nails APRN [address] [place] [address] MEDICAL ONCOLOGY [place], [place] [phone] 11/02/2023 1:30 PM EDT Infusion Hematology Oncology at [address] [phone] documented as of this encounter Visit Diagnoses Not on filedocumented in this encounter Care Teams Solar Sales Ambassador Relationship Specialty Start Date End Date Zeny James APRN [address] [facility] [facility] [address] [place] [address] PCP - General Family Medicine 09/23/19 documented as of this encounter
--- OUTSIDE RECORDS SUMMARY | 2023-11-02 02:27 | XMS_ITS | Encounter Summary ---
[place] [address] Care Team Providers Care Plain Clothes Police Officer Name Role Phone Zeny James APRN Primary Care Provider Reason for Referral * Diagnostic Test (Routine) - Closed Specialty Diagnoses / Procedures Referred By Contac t Referred To Contact Radiology Diagnoses IPMN (intraductal papillary mucinous neoplasm) Procedures CT Abdomen w Contrast Regino Carolina MD [facility] [place] [address] [facility] [place] [address] Referral ID Status Reason Start Date Expiration Date V isits Requested Visits Authorized [id number] Closed Specialty Service Requested 12/01/2020 06/03/2022 1 1 Reason for Visit * Diagnostic Test (Routine) - Closed Specialty Diagnoses / Procedures Referred By Contac t Referred To Contact Radiology Diagnoses IPMN (intraductal papillary mucinous neoplasm) Procedures CT Abdomen w Contrast Regino Carolina MD [facility] [place] [address] [facility] [place] [address] Referral ID Status Reason Start Date Expiration Date V isits Requested Visits Authorized [id number] Closed Specialty Service Requested 12/01/2020 06/03/2022 1 1 Encounter Details Date Type Department Care Team (Late st Contact Info) Description 12/28/2021 12:35 PM EDT - 12/28/2021 11:59 PM EDT Hospital Encounter CT Scan at [facility] [place] [address] Regino Carolina MD [facility] [place] [address] IPMN (intraductal papillary mucinous neoplasm) Discharge Disposition: Home Social History Tobacco Use [...] Sig Dispensed Refills Start Date End Date denosumab (PROLIA SUBQ) Inject subcutaneously Q6 Months. sennosides/docusat e sodium (SENNA WITH DOCUSATE SODIUM ORAL) Take 1 tablet by mouth nightly. hydroCHLOROthiazid e (Hydrodiuril) 12.5 mg Tablet Take 12.5 mg by mouth daily. omeprazole (PriLOSEC) 20 mg Capsule, Delayed Release(E.C.) Take 20 mg by mouth daily. Blood-Glucose Meter Misc 1 Application by OrthoSensor.(Non-Drug; Combo Route) route 3 times daily (before [...] Capsule Take 1 g by mouth daily. eqrbjz-hvdogixx-mm ylradha [place]ral[place]) 24,000-76,000 -120,000 unit Capsule, Delayed Release(E.C.) Take 3 capsules po with breakfast, 4 capsules po with lunch and dinner, take 1 cap po with snacks BID (13 cap/day) 1170 capsule 3 09/07/2021 07/19/2022 anastrozole (Arimidex) 1 mg TabletIndications: Malignant neoplasm of upper-outer quadrant of left breast in female, estrogen receptor positive Take 1 tablet by mouth daily. 90 tablet 3 04/29/2021 03/08/2022 CALCIUM CARBONATE-VITAMIN D3 ORAL Take 1 tablet by mouth daily. 01/19/2023 fluticasone propionate (FLONASE) 50 mcg/actuation [place], Suspension 1 spray by Each Nare route daily as needed. 3 documented as of this encounter Plan of Treatment Upcoming Encounters Date Type Department Care Team (Late st Contact Info) Description 11/02/2023 1:00 PM EDT Office Visit Hematology/Oncology at [address] [phone] Mary Nails APRN [address] [place] [address] DR MEDICAL ONCOLOGY [place], [place] [id number] 11/02/2023 1:30 PM EDT Infusion Hematology Oncology at [address] [phone] documented as of this encounter Procedures Procedure Name Priority Date/Time Associated Diagnosis Comments CT ABDOMEN W CONTRAST Routine 12/28/2021 2:39 PM EDT IPMN (intraductal papillary mucinous neoplasm) documented in this encounter Results * CT Abdomen w Contrast (12/28/2021 2:39 PM EDT) Anatomical Region Laterality Modality Abdomen Computed Tomogra phy 12/28/2021 2:56 PM EDT Impressions 12/28/2021 3:15 PM EDT Post Whipple changes. Normal caliber of the main pancreatic duct. No evidence of IPMN recurrence. Thank you for letting us participate in the care of this patient. ??If you are a health care provider and have any questions regarding this report, please contact the number below. ??For patients who have questions please contact the health manager respiratory care that requested your imaging first. ? Electronically signed by: Mike Saunders MD, [facility] ([phone]), at 12/28/2021 3:15 PM Narrative 12/28/2021 3:15 PM EDT EXAMINATION: CT ABDOMEN W CONTRAST CLINICAL HISTORY: Pancreatic cancer, surveillance Robotic whipple 03/2020 for main duct IPMN - annual CT to evaluate for recurrent IPMN, cysts? ??Dilation of main pancreatic duct TECHNIQUE: Helical CT of the abdomen was performed following the intravenous administration of contrast. . Oral contrast was not administered. COMPARISON: December 01, 2020 FINDINGS: Lower chest: Minimal scarring at the bases. Liver: Normal size and attenuation without lesions. Bile ducts: Nondilated. Persistent pneumobilia. Gallbladder: Absent. Pancreas: Post Whipple changes. No pancreatic ductal dilatation in the remaining pancreas. Punctate parenchymal calcifications, unchanged. Spleen: Normal. Adrenal: Normal. Kidneys: Mild dilatation of the renal pelves and proximal ureters, no appreciable change. No renal masses or calcifications. Unchanged scattered parenchymal cysts. Vasculature: No aneurysm. Lymph nodes: No enlarged lymph nodes. Bowel: Nondilated, no wall thickening. Peritoneum and mesentery: No ascites, free air, or loculated fluid collection. No mesenteric inflammation. Abdominal wall: Normal. Osseous structures: Subjectively decreased bone mineralization. Facet hypertrophic changes. Degenerative spondylosis with vacuum disc phenomenon and lower thoracic spine. Procedure Note Mike Saunders MD - 12/28/2021 EXAMINATION: CT ABDOMEN W CONTRAST CLINICAL HISTORY: Pancreatic cancer, surveillance Robotic whipple 03/2020 for main duct IPMN - annual CT to evaluate forrecurrent IPMN, cysts? Dilation of main pancreatic duct TECHNIQUE: Helical CT of the abdomen was performed following theintravenous administration of contrast. . Oral contrast was not administered. COMPARISON: December 01, 2020 FINDINGS: Lower chest: Minimal scarring at the bases. Liver: Normal size and attenuation without lesions. Bile ducts: Nondilated. Persistent pneumobilia. Gallbladder: Absent. Pancreas: Post Whipple changes. No pancreatic ductal dilatation in theremaining pancreas. Punctate parenchymal calcifications, unchanged. Spleen: Normal. Adrenal: Normal. Kidneys: Mild dilatation of the renal pelves and proximal ureters, no appreciable change. No renal masses or calcifications. Unchangedscattered parenchymal cysts. Vasculature: No aneurysm. Lymph nodes: No enlarged lymph nodes. Bowel: Nondilated, no wall thickening. Peritoneum and mesentery: No ascites, free air, or loculated fluidcollection. No mesenteric inflammation. Abdominal wall: Normal. Osseous structures: Subjectively decreased bone mineralization. Facet hypertrophic changes. Degenerative spondylosis with vacuum disc phenomenonand lower thoracic spine. IMPRESSION Post Whipple changes. Normal caliber of the main pancreatic duct. Noevidence of IPMN recurrence. Thank you for letting us participate in the care of this patient. If youare a health care provider and have any questions regarding this report,please contact the number below. For patients who have questions please contactthe health manager respiratory care that requested your imaging first. Electronically signed by: Mike Saunders MD, [facility]([phone]), at 12/28/2021 3:15 PM Regino Carolina MD IMG CT ORDERABLES documented in this encounter Visit Diagnoses Diagnosis IPMN (intraductal papillary mucinous neoplasm) Neoplasm of unspecified nature of digestive system documented in this encounter Administered Medications Inactive Administered Medications - up to 3 most recent administrations Medication Order MAR Action Action Date Dose Rate Site iohexoL (Omnipaque) (350 mg/mL) solution 0-200 mL 0-200 mL, Intravenous, ONCE PRN, 1 dose, Starting on Tu12/28/21 at 1439, Until Mon12/28/21 at 1439, Per Protocol, Warning Vesicant/Irritant Medication , Radiology Contrast, Routine Given 12/28/2021 2:39 PM EDT 80 mLs documented in this encounter Care Teams Plain Clothes Police Officer Relationship Specialty Start Date End Date Zeny James APRN [address] [place] [address] PCP - General Family Medicine 09/23/19 documented as of this encounter
--- OUTSIDE RECORDS SUMMARY | 2023-11-02 02:27 | XMS_ITS | Encounter Summary ---
Author Organization [facility] Address [facility] [place] [address] Care Team Providers Care Equipment Validation Specialist Name Role Phone Zeny James APRN Primary Care Provider [phone] Reason for Visit * Reason Comments Injections Prolia * Treatment/Therapy Plan Authorization (Routine) - Authorized Specialty Diagnoses / Procedures Referred By Nir t Referred To Contact Hematology and Oncology Diagnoses Malignant neoplasm of left breast in female, estrogen receptor positive, unspecified site of breast Osteopenia, unspecified location rn long term care current use of aromatase inhibitor Procedures TC DENOSUMAB, 1MG, INJECTION [id number] PROLIA Jeffery Sanz MD [facility] DR HEMATOLOGY/[place] [address] Jeffery Sanz MD [facility] DR HEMATOLOGY/[place] [address] Referral ID Status Reason Start Date Expiration Date V isits Requested Visits Authorized [id number] Authorized 04/17/2022 07/03/2023 99 99 Encounter Details Date Type Department Care Team (Late st Contact Info) Description 05/13/2021 12:00 PM EST Infusion Hematology Oncology at [address] [phone] Osteopenia, unspecified location; rn long term care current use of aromatase inhibitor; Malignant neoplasm [...] place to sleep or slept in a jail (including now)? No 04/29/2021 Sex and Gender Information Value Date Recorded Sex Assigned at Not on file Gender Identity Not on file Sexual Orientation Not on file documented as of this encounter Last Filed Vital Signs Vital Sign Reading Time Taken Comments Blood Pressure 146/72 05/13/2021 12:05 PM EST Pulse 67 05/13/2021 12:05 PM EST Temperature 37.1 ??C (98.7 ??F) 05/13/2021 12:[address] Respiratory Rate 16 05/13/2021 12:05 PM EST Oxygen Saturation 99% 05/13/2021 12:05 PM EST Inhaled Oxygen Concentration - - Weight 48 kg (105 lb 12.8 oz) 05/13/2021 12:05 P M EST Height 156 cm (5' 1.42) 05/13/2021 12:05 PM EST Body Mass Index 19.72 05/13/2021 12:05 PM EST documented in this encounter Progress Notes * Britt Carlin RN - 05/13/2021 12:00 PM EST Infusion Note Diagnosis:Breast Cancer Treatment: Prolia Injection Labs: Ca 9.4, Cr 0.6, CrCl 62.4ml/min Prolia 60mg injected in left arm. Patient aware to call clinic with any questions or concerns. Plan: Return to clinic as scheduled. documented in this encounter Plan of Treatment Upcoming Encounters Date Type Department Care Team (Late st Contact Info) Description 11/02/2023 1:00 PM EDT Office Visit Hematology/Oncology at [address] [phone] Mary Nails APRN [address] [place] [address] MEDICAL ONCOLOGY [place], [place] [id number] 11/02/2023 1:30 PM EDT Infusion Hematology Oncology at [address] [phone] documented as of this encounter Visit Diagnoses Diagnosis Osteopenia, unspecified location [facility] current use of aromatase inhibitor Use of [...] mg, Subcutaneous, ONCE, 1 dose, On Pamella 05/13/21 at 1215, Bring to room temperature 15-30 mins before administration. Monitor patients with severe impairment (CRCL less than 30 mL/minute or on dialysis) due to increased risk of hypocalcemia., Restricted to outpatient use. Requires P&T approval for inpatient use. Use in outpatient setting Given 05/13/2021 12:15 PM EST 60 mg Left Arm documented in this encounter Care Teams Equipment Validation Specialist Relationship Specialty Start Date End Date Zeny James APRN [address] [place] [address] PCP - General Family Medicine 09/23/19 documented as of this encounter
--- OUTSIDE RECORDS SUMMARY | 2023-11-02 02:27 | XMS_ITS | Encounter Summary ---
Author Organization [facility] Address [facility] [place] [address] Care Team Providers Care Living Specialist Name Role Phone Zeny James APRN Primary Care Provider Encounter Details Date Type Department Care Team (Late st Contact Info) Description 09/20/2022 Notes Only Care Management [facility] [place] [phone] Maylin Dodge Social History Tobacco Use Types [...] encounter Progress Notes * Maylin Dodge - 09/20/2022 10:18 AM EDT I faxed the application for assistance with Creon to [employer]. I will follow through once the workers compensation claims specialist program makes a decision. documented in this encounter Plan of Treatment Upcoming Encounters Date Type Department Care Team (Late st Contact Info) Description 11/02/2023 1:00 PM EDT Office Visit Hematology/Oncology at [address] [phone] Mary Nails APRN [address] [place] [address] DR MEDICAL ONCOLOGY [place], [place] [address] 11/02/2023 1:30 PM EDT Infusion Hematology Oncology at [address] [phone] documented as of this encounter Visit Diagnoses Not on filedocumented in this encounter Care Teams Living Specialist Relationship Specialty Start Date End Date Zeny James APRN [address] [place], [place] [address] PCP - General Family Medicine 09/23/19 documented as of this encounter
--- OUTSIDE RECORDS SUMMARY | 2023-11-02 02:27 | XMS_ITS | Encounter Summary ---
Author Organization [facility] [place] [address] Care Team Providers Care Dye Winch Operator Name Role Phone Zeny James APRN Primary Care Provider Encounter Details Date Type Department Care Team (Late st Contact Info) Description 01/18/2021 Telephone Hematology [place] [phone] Aurelia Negrete, JOSE MANUEL Social History Tobacco Use Types Packs/Day Years [...] Telephone Encounter - Aurelia Negrete RD - 01/18/2021 3:41 PM EDT Called Maricruz--we had increased pancreatic enzymes incrementally from 3 with meals to 4 with meals and she feels that bowels have begun to slow-ie one occurrence of diarrhea in the past four days. Stools are darker but continue to float. She is adding more calories to her diet and in some instances increasing enzymes as needed beyond four with a meal if she is consuming particularly larger meal. (ie required 6 with evening meal which included large volume of foods that she does not ordinarily consume ie hamburger, hot dog, micheal chip cookie). Weight remains stable--has not decreased any further 105 pounds. Maricruz will call me should she continue to lose weight otherwise I will plan to call in March. documented in this encounter Plan of Treatment Upcoming Encounters Date Type Department Care Team (Late st Contact Info) Description 11/02/2023 1:00 PM EDT Office Visit Hematology/Oncology at [address] [phone] Mary Naisl APRN [address] [place] [address] DR MEDICAL ONCOLOGY [place], [place] [id number] 11/02/2023 1:30 PM EDT Infusion Hematology Oncology at [address] [phone] documented as of this encounter Visit Diagnoses Not on filedocumented in this encounter Care Teams Dye Winch Operator Relationship Specialty Start Date End Date Zeny James APRN [address] [place] [address] [address] [place] [address] PCP - General Family Medicine 09/23/19 documented as of this encounter
--- OUTSIDE RECORDS SUMMARY | 2023-11-02 02:27 | XMS_ITS | Encounter Summary ---
Author Organization [facility] [place] [address] Care Team Providers Care Office Mover Name Role Phone Zeny James APRN Primary Care Provider Encounter Details Date Type Department Care Team (Late st Contact Info) Description 12/30/2021 11:30 AM EDT Telephone Hematology [place] [phone] A[address]lia Negrete RD Social History Tobacco Use [...] Telephone Encounter - Aurelia Negrete RD - 12/30/2021 11:43 AM EDT Brief call with Maricruz--[facility] have not resulted at this time. I relayed that this could take 5-7 days for Vitamin A and E to result. Maricruz will check portal once results are available and will contact me if either serum Vitamin A or Vitamin E are outside of normal range. Dr Lexa Carolina has advised Maricruz to reduce pancreatic enzymes from 4 to 3 with meals. Weight currently 107 but had been 100 pounds within past two months/lowest weight. documented in this encounter Plan of Treatment Upcoming Encounters Date Type Department Care Team (Late st Contact Info) Description 11/02/2023 1:00 PM EDT Office Visit Hematology/Oncology at [address] [phone] Mary Nails APRN [address] [place] [address] [place] [address] 11/02/2023 1:30 PM EDT Infusion Hematology Oncology at [address] [phone] documented as of this encounter Visit Diagnoses Not on filedocumented in this encounter Care Teams Office Mover Relationship Specialty Start Date End Date Zeny James APRN [address] [place] [address] PCP - General Family Medicine 09/23/19 documented as of this encounter
--- OUTSIDE RECORDS SUMMARY | 2023-11-02 02:27 | XMS_ITS | Encounter Summary ---
Author Organization [facility] [place] [address] Care Team Providers Care Expansion Envelope Maker Hand Name Role Phone Zeny James APRN Primary Care Provider Encounter Details Date Type Department Care Team (Late st Contact Info) Description 01/01/2021 Telephone Hematology [place] [phone] Social History Tobacco Use [...] Telephone Encounter - Aurelia Negrete RD - 01/01/2021 11:25 AM EDT Received a call from Maricruz--weight has dropped about 5 pounds/6 weeks and recent episode of diarrhearequiring imodium for 1-2 days. Now moving bowels 1-3 times a day in the morning, sometimes several(3) episodes in the morning. 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 She maintains on stimulant and softener each night/wishes to maintain on this so as to avoid constipation. We discussed trial of increasing to 4 capsules of Creon 24 with lunch and evening meal, continue with 3 with breakfast. Suspect this may be AMANDA and requires dosing up by one more capsule. I have asked Maricruz to also make attempts to be more inclusive of fat and calories in her diet as she has always followed low fat diet. Maricruz will call me in two weeks to see if above has helped. Could consider every other night softener instead. Labs at [facility] in March/confirmed with Lisa that we will receive results. Her PCP is tracking elevated LFTS and HGBA1C. documented in this encounter Plan of Treatment Upcoming Encounters Date Type Department Care Team (Late st Contact Info) Description 11/02/2023 1:00 PM EDT Office Visit Hematology/Oncology at [address] [phone] Mary Nails APRN [address] [place] [address] MEDICAL ONCOLOGY [place], [place] [id number] 11/02/2023 1:30 PM EDT Infusion Hematology Oncology at [address] [phone] documented as of this encounter Visit Diagnoses Not on filedocumented in this encounter Care Teams Expansion Envelope Maker Hand Relationship Specialty Start Date End Date Zeny James APRN [address] [place] [address] PCP - General Family Medicine 09/23/19 documented as of this encounter
--- OUTSIDE RECORDS SUMMARY | 2023-11-02 02:27 | XMS_ITS | Encounter Summary ---
Author Organization [facility] [place] [address] Care Team Providers Care Electorate Officer Name Role Phone VasuZeny santos JESUS ALBERTO Primary Care Provider Encounter Details Date Type Department Care Team (Late st Contact Info) Description 12/02/2020 Orders [place] [phone] Regino Carolina MD [facility] DR GENERAL [place] [address] Pancreatic insufficiency; Other iron deficiency anemia Social History Tobacco Use Types Packs/Day Years [...] 1:00 PM EDT Office Visit Hematology/Oncology at [address] [phone] Mary Nails BACK LINE COOK [address] [place] [address] DR MEDICAL ONCOLOGY [place], [place] [address] 11/02/2023 1:30 PM EDT Infusion Hematology Oncology at [address] [phone] documented as of this encounter Visit Diagnoses Diagnosis Pancreatic insufficiency Other specified disease of pancreas Other iron deficiency anemia documented in this encounter Care Teams Electorate Officer Relationship Specialty Start Date End Date Zeny James APRN [address] [place], [place] [address] PCP - General Family Medicine 09/23/19 documented as of this encounter
--- OUTSIDE RECORDS SUMMARY | 2023-11-02 02:27 | XMS_ITS | Encounter Summary ---
Author Organization [facility] [place] [address] Care Team Providers Care Cupola Operator Insulation Name Role Phone Zeny James APRN Primary Care Provider [phone] Encounter Details Date Type Department Care Team (Late st Contact Info) Description 03/29/2021 11:30 AM EST Telephone Hematology [place] [phone] Social History Tobacco Use [...] Telephone Encounter - Aurelia Negrete RD - 03/29/2021 12:58 PM EST Linda ??is 74?years ??with newly diagnosed IPMN, s/p Whipple Resection ?? Operations/Major Procedures: Operations: ??03/23/2020 ??Surgeon(s) and Role: ?* Regino Carolina MD - Primary: ?Procedure(s): ROBOTIC PANCREATECTOMY,WHIPPLE, PARTIAL GASTRECTOMY W/ PANCREATOJEJUNOSTOMY MODIFIER ROBOT,STEPHANIE REINA @OMENTAL FLAP, INTRA-ABDOMINAL (WRVU 6.54) Brief call with Maricruz as she was heading out to see her PCP/scheduled appointment. She was able [facility] nutrition labs that were due. (see scanned results). Vitamin D 30.1 ng/mL Vitamin E 14.2 mg/L Vitamin A 37.0 mcg/dL All within normal limits, Vitamin A improved from results 6 mos ago. Recommend annual post [place] nutrition labs: Vitamin B12, A, E, D, serum ferritin, iron panel, CMP and CBC with diff. documented in this encounter Plan of Treatment Upcoming Encounters Date Type Department Care Team (Late st Contact Info) Description 11/02/2023 1:00 PM EDT Office Visit Hematology/Oncology at [address] [phone] Mary Nails APRN [address] [place] [address] MEDICAL ONCOLOGY [place], [place] [address] 11/02/2023 1:30 PM EDT Infusion Hematology Oncology at [address] [phone] documented as of this encounter Visit Diagnoses Not on filedocumented in this encounter Care Teams Cupola Operator Insulation Relationship Specialty Start Date End Date Zeny James APRN [address] [place] [address] PCP - General Family Medicine 09/23/19 documented as of this encounter
--- OUTSIDE RECORDS SUMMARY | 2023-11-02 02:27 | XMS_ITS | Encounter Summary ---
Author Organization [facility] Address [facility] [place] [address] Care Team Providers Care Air Shovel Operator Name Role Phone Zeny James APRN Primary Care Provider Encounter Details Date Type Department Care Team (Late st Contact Info) Description 09/08/2022 Notes Only Care Management [facility] [place] [phone] Maylin Dodge Social History Tobacco Use Types [...] encounter Progress Notes * Maylin Dodge - 09/08/2022 11:08 AM EDT I sent a letter and the application for assistance with Creon to the patient for them to complete, sign and return to the Medication Assistance Program. The MAP office will follow up with the patientin 5 business days to see if the patient has received the application and if they have any questions. I sent the application for assistance with Creon to Dr.K Carolina for their signature and prescription. I will follow through with the remainder of the application once everything is returned to me. documented in this encounter Plan of Treatment Upcoming Encounters Date Type Department Care Team (Late st Contact Info) Description 11/02/2023 1:00 PM EDT Office Visit Hematology/Oncology at [address] [phone] Mary Nails APRN [address] [place] [address] DR MEDICAL ONCOLOGY [place], [place] [id number] 11/02/2023 1:30 PM EDT Infusion Hematology Oncology at [address] [phone] documented as of this encounter Visit Diagnoses Not on filedocumented in this encounter Care Teams Air Shovel Operator Relationship Specialty Start Date End Date Zeny James APRN [address] [place] [address] PCP - General Family Medicine 09/23/19 documented as of this encounter
--- OUTSIDE RECORDS SUMMARY | 2023-11-02 02:27 | XMS_ITS | Encounter Summary ---
Author Organization [facility] [place] [address] Care Team Providers Care Biodiesel Engineering Manager Name Role Phone VasuZeny santos JESUS ALBERTO Primary Care Provider Encounter Details Date Type Department Care Team (Late Contact Info) Description 01/27/2021 Telephone [place] [phone] Kacy Winter Social History Tobacco Use Types Packs/Day Years [...] encounter Miscellaneous Notes * Telephone Encounter - Kacy Parker - 01/27/2021 1:33 PM EDT Maricruz called to cancel her follow up visit on 02/24/[address] Rivera. She will be followed by Dr. Dueñas. documented in this encounter Plan of Treatment Upcoming Encounters Date Type Department Care Team (Late st Contact Info) Description 11/02/2023 1:00 PM EDT Office Visit Hematology/Oncology at [address] [phone] Mary Nails FLANGE TURNER [address] [place] [address] [place] [address] 11/02/2023 1:30 PM EDT Infusion Hematology Oncology at [address] [phone] documented as of this encounter Visit Diagnoses Not on filedocumented in this encounter Care Teams Biodiesel Engineering Manager Relationship Specialty Start Date End Date Zeny James APRN [address] [place] [address] [address] [place], [place] [address] PCP - General Family Medicine 09/23/19 documented as of this encounter
--- OUTSIDE RECORDS SUMMARY | 2023-11-02 02:27 | XMS_ITS | Encounter Summary ---
Author Organization [facility] [address] Care Team Providers Care Semaphore Operator Name Role Phone VasuZeny santos JESUS ALBERTO Primary Care Provider [phone] Encounter Details Date Type Department Care Team (Late Contact Info) Description 03/25/2021 Telephone [place] [phone] Melba Andersen, RN Social History Tobacco Use Types Packs/Day [...] encounter Miscellaneous Notes * Telephone Encounter - Melba Andersen RN - 03/25/2021 10:48 AM EST Attempted to return patient's call. No patient identifying information provided in the greeting, soI did not leave a message. documented in this encounter Plan of Treatment Upcoming Encounters Date Type Department Care Team (Late Contact Info) Description 11/02/2023 1:00 PM EDT Office Visit Hematology/Oncology at [address] [phone] Mary Nails APRN [address] [place] [address] 11/02/2023 1:30 PM EDT Infusion Hematology Oncology at [address] [phone] documented as of this encounter Visit Diagnoses Not on filedocumented in this encounter Care Teams Semaphore Operator Relationship Specialty Start Date End Date Zeny James APRN [address] [place] [address] [address] [place] [address] PCP - General Family Medicine 09/23/19 documented as of this encounter
--- OUTSIDE RECORDS SUMMARY | 2023-11-02 02:27 | XMS_ITS | Encounter Summary ---
Author Organization [facility] Address [facility] [place] [address] Care Team Providers Care Quill Collector Name Role Phone Zeny James APRN Primary Care Provider Encounter Details Date Type Department Care Team (Late st Contact Info) Description 07/05/2022 Orders Only [place] [phone] Regino Carolina MD [facility] [place] [address] Social History Tobacco Use Types Packs/Day Years [...] 1:00 PM EDT Office Visit Hematology/Oncology at [address] [phone] Mary Nails APRN [address] [place] [address] [place] [address] 11/02/2023 1:30 PM EDT Infusion Hematology Oncology at [address] [phone] documented as of this encounter Visit Diagnoses Not on filedocumented in this encounter Care Teams Quill Collector Relationship Specialty Start Date End Date Zeny James APRN [address] [place] [address] PCP - General Family Medicine 09/23/19 documented as of this encounter
--- OUTSIDE RECORDS SUMMARY | 2023-11-02 02:27 | XMS_ITS | Encounter Summary ---
Author Organization [facility] Address [facility] [place] [address] Care Team Providers Care Metal Off Bearer Name Role Phone VasuZeny santos JESUS ALBERTO Primary Care Provider Reason for Visit * Consultation (Routine) - Closed Specialty Diagnoses / Procedures Referred By Nir potts Referred To Contact Hematology and Oncology Diagnoses Malignant neoplasm of upper-outer quadrant of left breast in female, estrogen receptor positive Roosevelt Dueñas MD [facility] DR HEMATOLOGY/[place] [address] Stj Hem Onc Office [address] [place] [phone] Referral ID Status Reason Start Date Expiration Date V isits Requested Visits Authorized [id number] Closed Consult, Test & Treat 04/01/2021 04/01/2022 1 1 Encounter Details Date Type Department Care Team (Late st Contact Info) Description 04/29/2021 1:00 PM EST Office Visit Hematology/Oncology at [address] [phone] Jeffery Sanz MD [facility] HEMATOLOGY/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 of aromatase inhibitor Social History [...] Sign Reading Time Taken Comments Blood Pressure 140/68 04/29/2021 1:04 PM EST Pulse 75 04/29/2021 1:04 PM EST Temperature 36.6 ??C (97.8 ??F) 04/29/2021 1:04 PM ES T Respiratory Rate 18 04/29/2021 1:04 PM EST Oxygen Saturation 98% 04/29/2021 1:04 PM EST Inhaled Oxygen Concentration - - Weight 48.5 kg (107 lb) 04/29/2021 1:04 PM EST Height 156 cm (5' 1.42) 04/29/2021 1:04 PM EST Body Mass Index 19.94 04/29/2021 1:04 PM EST documented in this encounter Progress Notes * Jeffery Sanz MD - 04/29/2021 1:00 PM EST Subjective Patient ID: Linda Serrano is a 75 y.o. female. HPI The patient is a 75-year-old female that I am meeting for the first time in the [facility]. She has a recent left breast cancer and a remote right breast cancer. Previously she was followed by Dr. Dueñas who is leaving [facility]. 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 She has been doing the best she can with her diet since she had her Whipple surgery. She thinks maybe she is starting togain a little bit of weight back. No fevers chills sweats. She has not noted any lumps or bumps. She does have osteopenia but has not been on any bone strengthening agents to prevent progression to osteoporosis. She has no dental issues. 75-year-old female with an early stage Patient Active Problem List Diagnosis Code ??? CIS - Entered not Verified ??? CIS - Healthcare Maintenance ??? CIS - Hypertension ??? CIS - Myalgias ??? CIS - R breast cancer ??? Seborrheic keratosis L82.1 ??? Multiple pigmented nevi D22.9 ??? Solar lentigo L81.4 ??? Nevus D22.9 ??? SK (seborrheic keratosis) L82.1 ??? Seborrheic dermatitis L21.9 ??? AK (actinic keratosis) L57.0 ??? IPMN (intraductal papillary mucinous neoplasm) D49.0 ??? Malignant neoplasm of left breast in female, estrogen receptor positive C50.912, Z17.0 ??? Pre-diabetes R73.03 ??? Gastroparesis K31.84 Current Outpatient Medications: ??? hydroCHLOROthiazide (Hydrodiuril) 12.5 mg Tablet, Take 12.5 mg by mouth daily., Disp: , Rfl: ??? anastrozole (Arimidex) 1 mg Tablet, Take 1 tablet by mouth daily., Disp: 90 tablet, Rfl: 3 ??? vitamin A (Aquasol) 10,000 unit Capsule, Take 1 capsule by mouth 3 times daily. (Patient not taking: Reported on 12/01/2020), Disp: 90 capsule, Rfl: 1 ??? bwnwne-yanttoed-akomobw DR (Creon) 24,000-76,000 -120,000 unit Capsule, Delayed Release(E.C.), Take 3 cap po with meals TID, take 1 cap po with snacks BID (11 cap/day), Disp: 990 capsule, Rfl: 3 ??? omeprazole (PriLOSEC) 20 mg Capsule, Delayed Release(E.C.), Take 40 mg by mouth daily., Disp: ,Rfl: ??? carvediloL (Coreg) 3.125 mg Tablet, Take 1 tablet by mouth 2 times daily (with meals). (Patientnot taking: Reported on 01/11/2021), Disp: 60 tablet, Rfl: 3 ??? senna-docusate (Pericolace) 8.6-50 mg Tablet, Take 2 tablets by mouth 2 times daily., Disp: 60 tablet, Rfl: 11 ??? Blood-Glucose Meter Mis, 1 Application by Mis.(Non-Drug; Combo Route) route 3 times daily (before meals). (Patient not taking: Reported on 01/11/2021), Disp: 1 each, Rfl: 0 ??? vitamin E (vitamin E) 400 unit Capsule, Take 1 capsule by mouth daily., Disp: , Rfl: ??? acetaminophen (Tylenol) 500 mg Tablet, Take 2 tablets by mouth every 6 hours as needed for Pain. (Patient not taking: Reported on 09/28/2020), Disp: , Rfl: ??? aspirin EC 81 mg Tablet, Delayed Release (E.C.), Take 81 mg by mouth daily., Disp: , Rfl: ??? b complex vitamins Capsule, Take 1 capsule by mouth daily., Disp: , Rfl: ??? CALCIUM CARBONATE-VITAMIN D3 ORAL, Take 1 tablet by mouth daily., Disp: , Rfl: ??? pravastatin (Pravachol) 20 mg Tablet, Take 20 mg by mouth daily., Disp: , Rfl: ??? albuteroL 90 mcg/actuation HFA Aerosol Inhaler, Inhale 1-2 puffs into the lungs every 4 hours as needed., Disp: , Rfl: ??? fluticasone propionate (FLONASE) 50 mcg/actuation Era, Suspension, 1 spray by Each Nare routedaily as needed., Disp: , Rfl: ??? Wixela Inhub 500-50 mcg/dose Disk with Device, Inhale 1 puff into the lungs 2 times daily., Disp: , Rfl: ??? cholecalciferol, Vitamin D3, 1,000 unit Capsule, Take 1,000 Units by mouth daily., Disp: , Rfl: ??? multivit,iron,minerals/lutein (CENTRUM SILVER ULTRA WOMEN'S ORAL), Take 1 tablet by mouth daily., Disp: , Rfl: ??? magnesium oxide 400 mg magnesium Capsule, Take 1 capsule by mouth daily., Disp: , Rfl: ??? fish oil-omega-3 fatty acids 1,000 mg Capsule, Take 1 g by mouth daily., Disp: , Rfl: Allergies Allergen Reactions ??? House Dust Social History Socioeconomic History ??? Marital status: Spouse name: Not on file ??? Number of children: Not on file ??? Years of education: Not on file ??? Highest education level: Not on file Occupational History ??? Not on file Tobacco Use ??? Smoking status: Never Smoker ??? Smokeless tobacco: Never Used Vaping Use ??? Vaping Use: Never used Substance and Sexual Activity ??? Alcohol use: Not Currently ??? Drug use: Never ??? Sexual activity: Not Currently Other Topics Concern ??? Not on file Social History Narrative ??? Not on file Social Determinants of Health Financial Resource Strain: Low Risk ??? Difficulty of Paying Living Expenses: Not very hard Food Insecurity: No Food Insecurity ??? Worried About Running Out of Food in the Last Year: Never true ??? Ran Out of Food in the Last Year: Never true Transportation Needs: No Transportation Needs ??? Lack of Transportation (Medical): No ??? Lack of Transportation (Non-Medical): No Physical Activity: Not on file Housing Stability: Low Risk ??? Unable to Pay for Housing in the Last Year: No ??? Number of Places Lived in the Last Year: 1 ??? Unstable Housing in the Last Year: No Family History Problem Relation Age of Onset ??? Breast Cancer Sister 46 CHEK2 mutation ??? Ovarian Cancer Neg Hx Review of Systems Constitutional: Negative for fatigue, fever and unexpected weight change. HENT: Negative for nosebleeds. Respiratory: Negative for cough and shortness of breath. Cardiovascular: Negative for chest pain and palpitations. Gastrointestinal: Negative for abdominal pain and diarrhea. Musculoskeletal: Negative for back pain. Skin: Negative for rash. Neurological: Negative for speech difficulty. Hematological: Negative for adenopathy. Does not bruise/bleed easily. All other systems reviewed and are negative. Objective Physical Exam Constitutional: General: She is not in acute distress. HENT: Mouth/Throat: Pharynx: No oropharyngeal exudate. Eyes: General: No scleral icterus. Cardiovascular: Rate and Rhythm: Normal rate and regular rhythm. Heart sounds: Normal heart sounds. Pulmonary: Effort: Pulmonary effort is normal. Breath sounds: Normal breath sounds. No wheezing. Abdominal: General: Bowel sounds are normal. Palpations: Abdomen is soft. There is no mass. Tenderness: There is no abdominal tenderness. Lymphadenopathy: Cervical: No cervical adenopathy. Skin: Findings: No rash. Neurological: Mental Status: She is alert and oriented to person, place, and time. Lab Results Component Value Date WBC 7.1 09/28/2020 RBC 4.25 09/28/2020 HGB 12.1 09/28/2020 HCT 37.6 09/28/2020 MCV 88.5 09/28/2020 MCH 28.5 09/28/2020 MCHC 32.2 09/28/2020 PLATELET 300 09/28/2020 RDWCV 14.2 (H) 09/28/2020 Creatinine .65, calcium 9.0 Assessment & Plan 75-year-old female with an early stage low risk left breast cancer for which she is on hormonal therapy. I anticipate 5 years of aromatase inhibitor should be adequate for her. No signs of local or systemic recurrence. We did talk about potentially adding Prolia for osteoporosis prevention given that she is on hormonal therapy that can increase her bone loss. She would be willing to do that. We will schedule her for her first injection of Prolia in a couple of weeks and then plan for her to return in 6 months for ongoing monitoring. She will need a CMP when she returns documented in this encounter Plan of Treatment Upcoming Encounters Date Type Department Care Team (Late st Contact Info) Description 11/02/2023 1:00 PM EDT Office Visit Hematology/Oncology at [address] [phone] Mary Nails APRN [address] [place] [address] MEDICAL ONCOLOGY [place], [place] [address] 11/02/2023 1:30 PM EDT Infusion Hematology Oncology at [address] [phone] documented as of this encounter Visit Diagnoses Diagnosis Malignant neoplasm of upper-outer quadrant of left breast in female, estrogen receptor positive Osteopenia, unspecified location 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
--- OUTSIDE RECORDS SUMMARY | 2023-11-02 02:27 | XMS_ITS | Encounter Summary ---
Author Organization [facility] [place] [address] Care Team Providers Care Explosive Ordnance Disposal Technician Name Role Phone Zeny James APRN Primary Care Provider Reason for Referral * Diagnostic Test (Routine) - Closed Specialty Diagnoses / Procedures Referred By Nir potts Referred To Contact Radiology Diagnoses IPMN (intraductal papillary mucinous neoplasm) Procedures CT Abdomen w Contrast Regino Carolina MD [facility] [place] [address] [facility] [place] [address] Referral ID Status Reason Start Date Expiration Date V isits Requested Visits Authorized [id number] Closed Specialty Service Requested 12/28/2021 06/28/2023 1 1 Encounter Details Date Type Department Care Team (Late st Contact Info) Description 12/28/2021 3:30 PM EDT Office [place] [address] Regino Carolina MD [facility] [place] [address] IPMN (intraductal papillary mucinous neoplasm) Social History [...] Sign Reading Time Taken Comments Blood Pressure 137/80 12/28/2021 3:32 PM EDT Pulse 73 12/28/2021 3:32 PM EDT Temperature 36.2 ??C (97.2 ??F) 12/28/2021 3:32 PM ED T Respiratory Rate 16 12/28/2021 3:32 PM EDT Oxygen Saturation 100% 12/28/2021 3:32 PM EDT Inhaled Oxygen Concentration - - Weight 48.5 kg (107 lb) 12/28/2021 3:32 PM EDT Height - - Body Mass Index 20.22 11/11/2021 12:54 PM EDT documented in this encounter Progress Notes * Regino Carolina MD - 12/28/2021 3:30 PM EDT Surgical Oncology Office Note Date: 12/28/2021 Primary physician: Zeny James APRN Referring physician: Migue Urruita MD Reason for evaluation: History of robotic whipple on 03/23/2020 for 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 Interval History: Mrs. Serrano is now a 75 year woman from [place], [place]. She presented to [facility] ED on 2019 with epigastric abdominal [...] of pancreatic duct/cyst fluid cytopathology per Acc# [id number] showed neoplastic Cells Present. Abundant macrophages, mixed leukocytes present and a single group of bland-appearing columnar cells. Cell block was examined. Note: The fluid CEA level is consistent with neoplastic process. 11/25/2019 surgical oncology consult. Maricruz was seen for surgery consultation. She was by herself. She described the episode that brought her to the ED at [facility] as the first time she is [...] 11/25/2019 CA-19-9 elevated to 255. 12/05/2019 CT/PET imaging results reviewed below: EXAMINATION: NM PET CT SKULL BASE TO MID-THIGH IMPRESSION 1. No abnormal activity or mass associated with the pancreas. Pancreatic ductal dilatation is unchanged. 2. There is no definite evidence of metastatic disease. Mildly hypermetabolic tree-in-bud opacitiesin the left upper lobe are likely inflammatory in origin. 01/09/2020 she had a follow up with for her stage I ILC ER+, VA-, HER2-- IDC of the left breast. She [...] at the ampulla but no peripancreatic adenopathy. Operation: On 03/23/2020 she underwent robotic whipple. Hospital Course: POD 0 03/23: To OR for robotic Whipple, ROEL post-op. Note intra-operative concern for common hepaticartery discoloration (? Pseydoaneurysm); post-op LFTS obtained with mild elevation, trended POD 1 03/24: Convalesced on 2W. OOB to chair and walked x 1. Some paranoia/disorientation. PICC placed. POD 2 03/25: Disoriented overnight but redirectable, improved during day. Transferred to private room. POD 3 03/26: CTA for bump in LFTs in light of concern over LARA anatomy in OR; negative for aneurysm. Small Left effusion. Awaiting ROBF. POD 4 03/27: clamp trial with 200cc out, NGT remained in overnight, +flatus. POD 5 03/28: NGT and KHRIS drain removed. Tolerated clears. HTN overnight with mild hyperglycemia. POD 6 03/29: BP continues to be elevated, patient reassured that it is safe to take BP on RUE intermittently POD 7 03/30: Stopped prn BP meds (hydralazine/labetalol), continued HCTZ with goal BP 150/90s per medicine recs POD 8 15: nausea with a few episodes of emesis, BP improved on HCTZ, AXR unremarkable, hyponatremia (130) POD 9 16: continues to have nausea with a few episodes of larger volume emesis, CT A/P revealed stricture with SBO, NGT placed with symptomatic improvement POD 10 04/02: EGD demonstrating multiple ulcerations near GJ anastamosis POD 11 04/03: Abx started for PNA tx POD 12 04/04: ROEL POD 13 04/05: ROEL POD 14 04/06: NGT removed, tolerating sips and chips POD 15 04/07: No changes, tolerating sips and chips POD 16 04/08: ROEL POD 17 04/09: ROEL. Advanced to FLD. Awaiting C.diff testing POD 18 04/10: +BM and flatus, c.diff negative, advanced to FLD for comfort only and tolerated well,started on carvedilol per medicine recs for SBP<150 POD 19 04/11: PICC rewired, ROEL. discharged Complications: #Delayed gastric emptying secondary to marginal ulcer at the GJ anastomosis requiring TPN. Pathology: 03/23/2020 [facility]# [id number] Surgical Pathology DIAGNOSIS A - Portal vein [...] Gallbladder, negative for diagnostic abnormality. Objective: Vitals: Blood pressure 137/80, pulse 73, temperature 36.2 ??C (97.2 ??F), resp. rate 16, weight 48.5 kg (107 lb), SpO2 100 %. 12/28/2021 she weighed 107 pounds. 12/01/2020 she weighed 114 pounds. 09/30/2019 she weighed 113 pounds. 04/21/2019 she weighed 118 pounds. 01/28/2020 she weighed 123 pounds. 12/18/2019 she weighed 120 pounds. General: Maricruz looks great. She is by herself. Abdomen: Soft, non distended and nontender. The laparoscopic and robotic port scars with no hernias. Extremities: No peripheral edema and symmetric bilaterally. Assessment and plans: Maricruz was seen back in the surgery clinic today for her annual oncologic surveillance appointment. The CT looks good. There are no signs of recurrence of the IPMN-the pancreatic duct is not dilated. There is no peripancreatic mass or adenopathy. The liver looks healthy appearing. She overall seems to be doing really well-she is taking 4 capsules of Creon with meals and we discussed the plan possibly to decrease that to 3 capsules with meals and she is on a new medication for her osteoporosis which she thinks may be helping with her more frequent stools that she is more regular now since she started that every 6-month subQ injection of Prolia. Most of her blood work was still pending though her iron levels are good. She is taking vitamin D and iron every other day. I will call her if the blood work is at all abnormal. She is planning in April it sounds like to go on a safari trip with the group to [facility] which she is looking forward to. It is great to see that she is doing so well. I ordered another CT to be done in 1 year and we will look forward to seeing her back at the end of next summer. Jennifer Carolina MD 12/28/2021 This note was created using Stumpwise voice recognition software. Addendum: Radiographic report reviewed below: 12/28/2021 EXAMINATION: CT ABDOMEN W CONTRAST ?? CLINICAL HISTORY: Pancreatic cancer, surveillance Robotic whipple 03/2020 for main duct IPMN - annual CT to evaluate for recurrent IPMN, cysts? Dilation of main pancreatic duct ? TECHNIQUE: Helical CT of the abdomen was performed following the intravenous administration of contrast. . Oral contrast was not administered. ?? COMPARISON: December 01, 2020 ?? FINDINGS: ?? Lower chest: Minimal scarring at the bases. ?? Liver: Normal size and attenuation without lesions. Bile ducts: Nondilated. Persistent pneumobilia. Gallbladder: Absent. Pancreas: Post Whipple changes. No pancreatic ductal dilatation in the remaining pancreas. Punctate parenchymal calcifications, unchanged. Spleen: Normal. Adrenal: Normal. Kidneys: Mild dilatation of the renal pelves and proximal ureters, no appreciable change. No renal masses or calcifications. Unchanged scattered parenchymal cysts. ?? Vasculature: No aneurysm. Lymph nodes: No enlarged lymph nodes. Bowel: Nondilated, no wall thickening. Peritoneum and mesentery: No ascites, free air, or loculated fluid collection. No mesenteric inflammation. Abdominal wall: Normal. ?? Osseous structures: Subjectively decreased bone mineralization. Facet hypertrophic changes. Degenerative spondylosis with vacuum disc phenomenon and lower thoracic spine. ?? IMPRESSION ?? Post Whipple changes. Normal caliber of the main pancreatic duct. No evidence of IPMN recurrence. ?? Thank you for letting us participate in the care of this patient. If you are a health care provider and have any questions regarding this report, please contact the number below. For patients who have questions please contact the health pet care assistant that requested your imaging first. documented in this encounter Plan of Treatment Upcoming Encounters Date Type Department Care Team (Late st Contact Info) Description 11/02/2023 1:00 PM EDT Office Visit Hematology/Oncology at [address] [phone] Mary Nails APRN [address] [place] [address] [place] [address] 11/02/2023 1:30 PM EDT Infusion Hematology Oncology at [address] [phone] documented as of this encounter Results * CT Abdomen w Contrast (01/03/2023 2:25 PM EDT) Anatomical Region Laterality Modality Abdomen Computed Tomogra phy Impressions 01/04/2023 8:45 AM EDT 1. ??Post Whipple. 2. ??Unchanged 0.5 cm cystic lesion in the pancreatic tail. 3. ??Benign-appearing subcentimeter liver lesions stable since 2020. Thank you for letting us participate in the care of this patient. ??If you are a health care provider and have any questions regarding this report, please contact the number below. ??For patients who have questions please contact the health pet care assistant that requested your imaging first. ? Narrative 01/04/2023 8:45 AM EDT EXAMINATION: CT [...] patients who have questions please contactthe health pet care assistant that requested your imaging first. Regino Carolina MD IMG CT ORDERABLES documented in this encounter Visit Diagnoses Diagnosis IPMN (intraductal papillary mucinous neoplasm) Neoplasm of unspecified nature of digestive system IPMN (intraductal papillary mucinous neoplasm) Neoplasm of unspecified nature of digestive system Malignant neoplasm of upper-outer quadrant of left breast in female, estrogen receptor positive Osteopenia due to cancer therapy Disorder of bone and cartilage, unspecified Other specified disorders of bone density and structure, other site documented in this encounter Care Teams Explosive Ordnance Disposal Technician Relationship Specialty Start Date End Date Zeny James APRN [address] [place] [address] PCP - General Family Medicine 09/23/19 documented as of this encounter
--- OUTSIDE RECORDS SUMMARY | 2023-11-02 02:27 | XMS_ITS | Encounter Summary ---
Author Organization [facility] [place] [address] Care Team Providers Care Shellacker Name Role Phone Zeny James REPLENISHMENT ASSOCIATE Primary Care Provider [phone] Reason for Referral * Consultation (Routine) - Closed Specialty Diagnoses / Procedures Referred By Nir potts Referred To Contact Hematology and Oncology Diagnoses Malignant neoplasm of upper-outer quadrant of left breast in female, estrogen receptor positive Roosevelt Dueñas MD [facility] DR HEMATOLOGY/[place] [address] [facility] Hem Onc Office [address] [place] [phone] Referral ID Status Reason Start Date Expiration Date V isits Requested Visits Authorized [id number] Closed Consult, Test & Treat 04/01/2021 04/01/2022 1 1 Encounter Details Date Type Department Care Team (Late st Contact Info) Description 04/01/2021 Orders Only Hematology [place] [address] Roosevelt Dueñas MD [facility] HEMATOLOGY/[place] [address] Malignant neoplasm of upper-outer quadrant of left [...] 1:00 PM EDT Office Visit Hematology/Oncology at [address] [phone] Mary Nails APRN [address] [place] [address] MEDICAL ONCOLOGY [place], [place] [address] 11/02/2023 1:30 PM EDT Infusion Hematology Oncology at [address] [phone] Scheduled Referrals Name Type Priority Associated Diagnoses Order Schedule Referral to Hematology and Oncology Outpatient Referral Routine Malignant neoplasm of upper-outer quadrant of left breast in female, estrogen receptor positive Ordered: 04/01/2021 documented as of this encounter Visit Diagnoses Diagnosis Malignant neoplasm of upper-outer quadrant of left breast in female, estrogen receptor positive documented in this encounter Care Teams Shellacker Relationship Specialty Start Date End Date Zeny James APRN [address] [place] [address] PCP - General Family Medicine 09/23/19 documented as of this encounter
--- OUTSIDE RECORDS SUMMARY | 2023-11-02 02:27 | XMS_ITS | Encounter Summary ---
Author Organization [facility] Address [facility] [place] [address] Care Team Providers Care Fire Services Plumber Name Role Phone Zeny James APRN Primary Care Provider [phone] Encounter Details Date Type Department Care Team (Late st Contact Info) Description 09/08/2022 Orders Only [place] [address] Regino Carolina MD [facility] [address] Social History Tobacco Use Types Packs/Day Years [...] PM EDT Office Visit Hematology/Oncology at [address] [phone] Mary Nails APRN [address] [place] [address] [place] [address] 11/02/2023 1:30 PM EDT Infusion Hematology Oncology at [address] [phone] documented as of this encounter Visit Diagnoses Not on filedocumented in this encounter Care Teams Fire Services Plumber Relationship Specialty Start Date End Date Zeny James APRN [address] [place] [address] PCP - General Family Medicine 09/23/19 documented as of this encounter
--- OUTSIDE RECORDS SUMMARY | 2023-11-02 02:27 | XMS_ITS | Encounter Summary ---
Author Organization [facility] Address [facility] [place] [address] Care Team Providers Care Tank Hoop Bender Name Role Phone Zeny James APRN Primary Care Provider Reason for Visit * Reason Comments Skin Check Encounter Details Date Type Department Care Team (Late st Contact Info) Description 02/24/2022 1:45 PM EST Office Visit Dermatology at [facility] [address] [place] [address] Michael Cavazos MD [facility] [address] [address] Solar lentigo; Multiple benign nevi; Seborrheic keratosis; Reyes angioma; History of basal cell carcinoma; Neoplasm of unspecified behavior of bone, soft [...] as of this encounter Progress Notes * Michael Cavazos MD - 02/24/2022 1:45 PM EST Images from the original note were not included. DEPARTMENT OF DERMATOLOGY Medical Dermatology Clinic Provider: MICHAEL CAVAZOS MD Patient's preferred name Linda Preferred contact method for results []??myDH []??Letter [x]??Phone:??Home Detailed phone message OK? Yes ?? PAST MEDICAL HISTORY If no, type N. If yes, type date, location, treatment Melanoma N Dysplastic nevi N SCC N BCC 12/03/2020: right posterior calf, BCC, s/p ED&C 01/11/202101/2010??back??[facility] AKs LN2 UV Exposure & Protection N Other relevant past medical history (i.e. eczema, psoriasis, birthmarks, immunosuppression) + SKs + Benign Nevi + Solar Lentigines + Lobular Carcinoma of the Right Breast (2000) + Cancer of the Let Breast, taking Anastrozole 1mg + HTN FAMILY HISTORY If yes, details Melanoma N NMSC N Other relevant family history N SOCIAL HISTORY Has garcia bushes ?? PRE-PROCEDURE SCREENING If no, type N. If yes, include details below Allergy to lidocaine, epinephrine, Dermabond, chlorhexidine, or adhesives: No Bleeding disorder or blood thinners: ASA 81mg, Vitamin E, Pravastatin 20mg, [place]-3 Pacemaker, defibrillator, deep brain stimulator, cochlear implant: No History of Present Illness: Linda Serrano is a 76 y.o. Patient returns to clinic today for a full skin exam and she notes a lesion on the left thigh that has been present for a month and has been bleeding. Last visit at Dermatology: 01/11/2021 Last visit with this provider: Visit date not found Medications: Reviewed in eD-H Allergies: Reviewed in eD-H Skin Examination: Full skin examination: Patient asked to undress to their comfort level. Verbalized that the provider???s preference is that the patient remove all clothing and that the provider will not examine areas patient elects to keep covered. Patient elects to keep underwear on and have the following examined: scalp, hair, face, ears, neck, chest, axillae, abdomen, back, and upper and lower extremities. Genitalia and buttocks were not examined. Assessment/Plan A. History of BCC - Well-healed scars per skin history. - No evidence of recurrence - Will continue to monitor. - Continue diligent sun protection B. Benign Appearing Nevi -Multiple, 0.3-0.5cm, medium-brown, evenly-pigmented macules and papules. All with regular pigment pattern on dermoscopy. No pigmented lesions suspicious for melanoma. - Benign. No treatment necessary. - Reassured about benign nature and natural history. C. Reyes Angiomas -Multiple 0.2-0.4cm bright red, well-demarcated papules - Benign. No treatment necessary. - Reassured about benign nature and natural history. D. Seborrheic Keratoses -Multiple 0.4-1 cm, brown-black papules/plaques with waxy stuck on appearance - Benign. No treatment necessary. - Reassured about benign nature and natural history. E. Solar Lentigines -Blotchy pigmentation and telangiectasia on sun-exposed skin with subtle yellowish cobblestoned appearance. - Benign. No treatment necessary. - Reassured about benign nature and natural history. - Sun avoidance, protective clothing and the use of SPF 30+ sunscreen is advised. Observe closely for skin changes and call if such occurs. F. Neoplasm of the Skin (Figure 1) DDx: SK versus SCC 0.4 cm crusted pink papule Procedure: Skin biopsy by shave technique Time of procedure: 1330 Location: Left medial superior calf Discussed indications for procedure and expectations including risks and benefits. Verbal consent obtained. Skin prep with alcohol. Local anesthesia with 1% xylocaine, 1/100,000 epinephrine. A sampleof the lesion was removed by shave technique to the level of the dermis and submitted to Pathology.Hemostasis obtained (AlCl and/or electrocautery). There were no complications; the pt. tolerated the procedure well. The wound was dressed. Post-procedure expectations, wound care and activity restrictions were reviewed. Follow-up based on pathology results. Figure 1 Photo(s) taken and charted with patient's verbal consent. Other: ??? N/A RTC: 1 yr for FSE []Note routed to corporation secretary [x]Recall placed in scheduling system []Appointment scheduled at checkout Scribe attestation: Laura Cruz LPN has performed the documentation for this encounter in thepresence of and acting as a scribe for MICHAEL CAVAZOS MD. I performed the above scribed service and agree with the accuracy of the documentation in this encounter. Reviewed and signed by: MICHAEL CAVAZOS MD Dermatology [facility] * Michael Cavazos MD - 02/24/2022 1:45 PM EST Benign seborrheic keratosis, No need for further treatment, Call to inform Michael blanton documented in this encounter Plan of Treatment Upcoming Encounters Date Type Department Care Team (Late st Contact Info) Description 11/02/2023 1:00 PM EDT Office Visit Hematology/Oncology at [address] [phone] Mary Nails APRN [address] [place] [address] DR MEDICAL ONCOLOGY [place], [place] [id number] 11/02/2023 1:30 PM EDT Infusion Hematology Oncology at [address] [phone] documented as of this encounter Procedures Procedure Name Priority Date/Time Associated Diagnosis Comments SURGICAL PATHOLOGY REPORT Routine 02/24/2022 1:37 PM EST SPECIMEN TO PATHOLOGY Routine 02/24/2022 1:37 PM EST Neoplasm of unspecified behavior of bone, soft tissue, and skin documented in this encounter Results * Surgical Pathology Report (02/24/2022 1:37 PM EST) Surgical Pathology Report [id number] ? Location: [facility] The signing pathologist has (i) examined the relevant preparation(s) for the specimen(s) and (ii) rendered or confirmed the diagnosis(es). . ?Surgical Pathology DIAGNOSIS Left medial superior calf, skin shave biopsy: - ??Verrucous keratosis, irritated, specimen edges are free of lesion on the available planes of sectioning examined Electronically signed by: ?Nicole CLANCY, Larry Alcaraz Verified: ??03/03/2022 15:15 ??Dermatopathol ogist Performed at: ??-[facility] Dept. of Pathology, [place] [address] Servicer: Elaine Black MD, FCAP, ??CLIA Certificate: [id number] ADDITIONAL STUDIES Multiple step-leveled sections are examined. SPECIMEN(S) SUBMITTED A - Left medial superior calf, skin shave biopsy (1) CLINICAL INFORMATION 0.4 cm crusted pink papule. SK versus SCC SPECIMEN PROCESSING A - Labeled/Fixativ e: Patient demographics, formalin. Quantity/Size: ??Single, 0.7 and 0.5 cm. Tissue Description: Non-oriented, discoid serrano-white shave with a 0.3 x 0.2 x 0.2 cm rubbery pelletier-serrano papule with partially surrounding hemorrhagic crust. Sections/Proces sing: Inked, trisected and entirely submitted in 1 cassette labeled A1. ??shb [facility] 02/24/2022 1:37 PM EST Michael Cavazos MD PATHOLOGY/CYTOLOGY O LORE Performing Organization Address [facility] [place] [address] * Specimen to Pathology (02/24/2022 1:37 PM EST) AP Specimen 02/24/2022 1:37 PM EST 02/24/2022 1:37 PM EST Narrative [facility] - 02/24/2022 1:37 PM EST Specimen requisition ordered. ??Separate Pathology report to follow Michael Cavaozs MD PATHOLOGY/CYTOLOGY O LORE Performing Organization Address [facility] [place] [address] documented in this encounter Visit Diagnoses Diagnosis Solar lentigo Other dyschromia Multiple benign nevi Benign neoplasm of skin, site unspecified Seborrheic keratosis Other seborrheic keratosis Reyes angioma Nevus, non-neoplastic History of basal cell carcinoma Personal history of other malignant neoplasm of skin Neoplasm of unspecified behavior of bone, soft tissue, and skin documented in this encounter Care Teams Tank Hoop Bender Relationship Specialty Start Date End Date Zeny James APRN [address] [facility] [address] [place] [address] PCP - General Family Medicine 09/23/19 documented as of this encounter
--- OUTSIDE RECORDS SUMMARY | 2023-11-02 02:27 | XMS_ITS | Encounter Summary ---
Author Organization [facility] Address [facility] [place] [address] Care Team Providers Care Rn Icu Name Role Phone Zeny James TECHNICAL DESIGNER Primary Care Provider Encounter Details Date Type Department Care Team (Latest Contact Info) Description 05/12/2022 Travel Social History Tobacco Use Types Packs/Day [...] PM EDT Office Visit Hematology/Oncology at [address] [phone] Mary Nails APRN [address] [place] [address] MEDICAL ONCOLOGY [place], [place] [id number] 11/02/2023 1:30 PM EDT Infusion Hematology Oncology at [address] [phone] documented as of this encounter Visit Diagnoses Not on filedocumented in this encounter Care Teams Rn Icu Relationship Specialty Start Date End Date Zeny James APRN [address] [place] [address] [address] [place] [address] PCP - General Family Medicine 09/23/19 documented as of this encounter
--- OUTSIDE RECORDS SUMMARY | 2023-11-02 02:27 | XMS_ITS | Encounter Summary ---
Author Organization Formerly [facility] [place] [address] Care Team Providers Care Church Supervisor Name Role Phone Zeny James APRN Primary Care Provider Reason for Visit * Reason Comments Follow-up Encounter Details Date Type Department Care Team (Late st Contact Info) Description 01/11/2021 2:45 PM EDT Office Visit [place] [phone] Roosevelt Dueñas MD [facility] HEMATOLOGY[place] [address] Malignant neoplasm of upper-outer quadrant of left [...] Sign Reading Time Taken Comments Blood Pressure 131/69 01/11/2021 2:06 PM EDT Pulse 85 01/11/2021 2:06 PM EDT Temperature 37.2 ??C (98.9 ??F) 01/11/2021 2:06 PM ED T Respiratory Rate 17 01/11/2021 2:06 PM EDT Oxygen Saturation 100% 01/11/2021 2:06 PM EDT Inhaled Oxygen Concentration - - Weight 48.8 kg (107 lb 9.6 oz) 01/11/2021 2:06 P M EDT Height 156 cm (5' 1.42) 01/11/2021 2:06 PM EDT Body Mass Index 20.06 01/11/2021 2:06 PM EDT documented in this encounter Progress Notes * Roosevelt Dueñas MD - 01/11/2021 2:45 PM EDT Breast Cancer follow-up HPI: Abnormal screening mammogram in November, revealed a subtle focal asymmetry of the outer left breast, at approximately 3:00, measuring 1 cm. Call back imaging confirmed a suspicious finding and biopsy performed. 12/05/19 Needle biopsies??Left breast: ? Diagnosis: ??- Invasive lobular carcinoma. ?Intermediate grade, modified SBR score = 6 ? - Lobular carcinoma in-situ and atypical lobular ?hyperplasia ER immunoreactivity: Positive (>90% cancer cells with immunostaining) Stain intensity: Strong AR immunoreactivity: Negative (<1% cancer cells with immunostaining) HER2 FISH: NEGATIVE FOR HER2/GREG AMPLIFICATION 12/05/19 PET/CT without e/o metastatic disease 12/20/19 Surgery A - Left breast, simple mastectomy - Invasive lobular carcinoma. - The tumor is 1.4 mm to deep RM in specimen A - Lobular carcinoma in-situ, conventional and variant types - Focal atypical ??ductal ??hyperplasia. B - Left axillary sentinel node, excision: Two benign nodes. C - Left Breast, deep-lateral margin, re-excision: Focal atypical lobular hyperplasia. SYNOPTIC Specimen ?Procedure: ??Total mastectomy ?Specimen Laterality:??Left Tumor ?Histologic Type: ??Invasive lobular carcinoma ?Glandular (Acinar)/Tubular Differentiation: ??Score 3 ?Nuclear Pleomorphism: ??Score 2 ?Mitotic Rate: ??Score 1 ?Overall Grade: ??Grade 2 ?Tumor Size: ??15 Millimeters (mm) ?Tumor Focality: ??Cannot be determined - See Discussion ?Ductal Carcinoma In Situ (DCIS): ??Not identified ?Lobular Carcinoma In Situ (LCIS): ??Present ?Lymphovascular Invasion: ??Not identified ?Treatment Effect in the Breast: ??No known presurgical therapy Margins ?Invasive Carcinoma Margins: ??Uninvolved by invasive carcinoma ? Distance from Closest Margin (Millimeters): ??Greater than 10 mm ? Closest Margin:??w/ additional margin re-excision, all RM > 10 mm Lymph Nodes ?Regional Lymph Nodes: ??Uninvolved by tumor cells ? Total Number of Lymph Nodes Examined: ??2 ? Number of [place] Nodes Examined: ??2 Pathologic Stage Classification (pTNM, AJCC 8th Edition) ?pT1c pN0 OncotypeDx Recurrence Score = 23, which as per T[employer]or[employer] trial, does not warrant adjuvant chemo. Started anastrazole mid Jan 2020. PMH: Past Medical History: Diagnosis Date ??? Basal cell carcinoma 2009 [facility]-back ??? Breast cancer ??? Pre-diabetes 03/30/2020 Prior breast cancer was a Right breast invasive lobular ca, s/p mastectomy, in 2000 (age 55). Two of 9 nodes were positive. ER-pos/AR-neg. Received AC/Taxol. Then took tamoxifen for 5 yrs, then transitioned to letrazole, which she did not tolerate d/t aches and pains in joints. Also tried exemestane but had same side effects after 4 months. > Osteopenia DEXA 2019: T-score: -2.1, CATARINO: Femoral neck. Took fosamax in distant past (?prior osteoporosis). > IPMN. Presented this past summer with weight loss and epigastric pain. Better on pancreatic enzymes. Being managed by Dr. Jennifer Carolina. S/P Price 03/23/20. 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 > She has completed MODERNA COVIDvaccination x2. 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 Lives alone ( >8 yr ago). Family History Problem Relation Age of Onset ??? Breast Cancer Sister 46 CHEK2 mutation ??? Ovarian Cancer Neg Hx Sister had some genetic testing in early . Patient indicates her sister had a CHEK2 mutation. 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 The following 47 genes were analyzed: APC, ZAIDA, AXIN2, BARD1, BMPR1A, BRCA1, BRCA2, BRIP1, CDH1, CDK4,CDKN2A, CHEK2, CTNNA1, DICER1, EPCAM, GREM1, HOXB13, KIT, MEN1, MLH1, MSH2, MSH3, MSH6, MUTYH, NBN,NF1, NTHL1, PALB2, PDGFRA, PMS2, POLD1, POLE, PTEN, RAD50, RAD51C, RAD51D, SDHA, SDHB, SDHC, SDHD, SMAD4, SMARCA4, STK11, TP53, TSC1, TSC2, and VHL. Interval Hx/ROS: Tolerating anastrazole ok. Occas hot flashes. Prior aches in hips/knees largely resolved; some joint aches persist (tolerable). Overall feels more tired than in the past. Stable SOB from asthma. No new problems with MATOS, diplopia, cough, ALVAREZ, pain, palpitations, fevers, bleeding, nausea/emesis, weakness, imbalance, falls. ROS otherwise neg. Exam: Patient Vitals for the past 24 hrs: Temp Pulse Resp BP SpO2 01/11/21 1406 37.2 ??C (98.9 ??F) 85 17 131/69 100 % PERRL, EOMi, sclera nonicteric No MATTHEW No spine tenderness Chest: clear to A and P S/P bilateral mastectomy, no nodules CV: RRR, no murmurs Abd: NT, no HSM, +BS Ext: no c/c/e Neuro: grossly nonfocal. I reviewed images from the Dec 01 CT (abd/pelvis), which was without e/o metastatic disease Assessment/Rec: 75 yo diagnosed November 2019 with a 2nd contralateral breast cancer in her left breast, the first breast cancer (on R) at age 55. She is s/p left mastectomy with path showing an intermediate-grade, 15mm tumor. Tumor cells were positive for ER, negative for AR. HER2 without amplification. There was no angiolymphatic invasion and 2 sentinel nodes were negative. pT1c pN0 OncotypeDx Recurrence Score = 23, which as per T[employer]or[employer] trial does not warrant adjuvant chemo. 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 Prior R breast invasive lobular ca in 2000 at age 55. Two of 9 nodes were positive. ER-pos/AR-neg. Received AC/Taxol. Then took tamoxifen for 5 yrs, then transitioned to letrazole, which she did not tolerate d/t aches and pains in joints. Also tried exemestane but had same side effects after 4 months. For this left breast cancer, I recommended adjuvant endocrine therapy, ideally with an aromatase inhibitor. Noting that she did not tolerate letrazole (or exemestane) in the past, recommended anastrazole. She started anastrazole mid Jan 2020 and remains on this. Most recent DEXA scan showed stable osteopenia; repeat due Jan 2022. All questions. RTC 6 mo documented in this encounter Plan of Treatment Upcoming Encounters Date Type Department Care Team (Late st Contact Info) Description 11/02/2023 1:00 PM EDT Office Visit Hematology/Oncology at [address] [phone] Mary Nails APRN [address] [place] [address] MEDICAL ONCOLOGY [place], [place] [id number] 11/02/2023 1:30 PM EDT Infusion Hematology Oncology at [address] [phone] documented as of this encounter Visit Diagnoses Diagnosis Malignant neoplasm of upper-outer quadrant of left breast in female, estrogen receptor positive documented in this encounter Care Teams Church Supervisor Relationship Specialty Start Date End Date Zeny JamesJESUS ALBERTO [address] [place] [address] [address] [place], [place] [address] PCP - General Family Medicine 09/23/19 documented as of this encounter
--- OUTSIDE RECORDS SUMMARY | 2023-11-02 02:27 | XMS_ITS | Encounter Summary ---
Author Organization [facility] [place] [address] Care Team Providers Care Splunk Dashboard Developer Name Role Phone Zeny James APRN Primary Care Provider Encounter Details Date Type Department Care Team (Late st Contact Info) Description 05/12/2022 1:00 PM EST Office Visit Hematology/Oncology at [address] [phone] Jeffery Sanz MD [facility] HEMATOLOGY/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 female. HPI The patient is a 76-year-old female that I am seeing in the [facility]. 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, [place] negative, HER2 negative PET/CT no mets 12/04, [...] -2.1 Fosamax in the past IPMN S/p Amandaipple 04/05 76 yo femal rtc in f/u for breast cancer. She had a remote right breast cancer in 2000 but more recently had a left breast cancer. She has been on hormonal therapy with anastrozole for the last 2-1/2years. She also has osteopenia so she has been on Prolia for osteoporosis prevention. Since we last saw her she has been okay. She did have COVID but did not get very sick. She also fell while sleepwalking visiting her sister in [place] and cracked a couple of ribs. Those have healedup. Sleepwalking has been a recurrent problem for her for many years. She has not noted any lumps or bumps. No concerns about recurrence. No new dental issues. Patient Active Problem List Diagnosis Code ??? [...] Z17.0 ??? Pre-diabetes R73.03 ??? Gastroparesis K31.84 ??? Osteopenia M85.80 ??? 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 anastrozole (Arimidex) 1 mg Tablet, TAKE 1 TABLET BY MOUTH DAILY, Disp: 90 tablet, Rfl: 3 ??? denosumab (PROLIA SUBQ), Inject subcutaneously Q6 Months., Disp: , Rfl: ??? edcrsr-dezhxcwy-bfqtucs DR [place]) 24,000-76,000 -120,000 unit Capsule, Delayed Release(E.C.), Take 3 capsules po with breakfast, 4 capsules po with lunch and dinner, take 1 cap po with snacks BID (13 cap/day), Disp: 1170 capsule, Rfl: 3 ??? sennosides/docusate sodium (SENNA WITH DOCUSATE SODIUM ORAL), Take 1 tablet by mouth nightly., Disp: , Rfl: ??? hydroCHLOROthiazide (Hydrodiuril) 12.5 mg Tablet, Take 12.5 mg by mouth daily., Disp: , Rfl: ??? omeprazole (PriLOSEC) 20 mg Capsule, Delayed Release(E.C.), Take 20 mg by mouth daily., Disp: ,Rfl: ??? Blood-Glucose Meter Mis, 1 Application by [facility].(Non-Drug; Combo Route) route 3 times daily (before meals)., Disp: 1 each, Rfl: 0 ??? vitamin E (vitamin E) 400 unit Capsule, Take 1 capsule by mouth daily., Disp: , Rfl: ??? acetaminophen (Tylenol) 500 mg Tablet, Take 2 tablets by mouth every 6 hours as needed for Pain., Disp: , Rfl: ??? aspirin EC 81 [...] Rfl: ??? fluticasone propionate (FLONASE) 50 mcg/actuation [place], Suspension, 1 spray by Each Nare routedaily [...] file Tobacco Use ??? Smoking status: Never ??? Smokeless tobacco: Never Vaping Use ??? Vaping Use: Never used Substance and Sexual Activity ??? Alcohol use: Not Currently ??? Drug use: Never ??? Sexual activity: Not Currently Other Topics Concern ??? Not on file Social History Narrative ??? Not on file Social Determinants of Health Financial Resource Strain: Not on file Food Insecurity: Not on file Transportation Needs: Not on file Physical Activity: Not on file Housing Stability: Not on file Family History Problem Relation Age of Onset [...] other systems reviewed and are negative. Objective BP 143/75 (Patient Position: Sitting) Pulse 95 Temp 35.6 ??C (96 ??F) (Temporal) Resp 16 Wt47.3 kg (104 lb 3.2 oz) BMI 19.69 kg/m?? Physical Exam Constitutional: General: She is not [...] and oriented to person, place, and time. Creatinine .7, calcium 9.0 Alk phos 199, AST 107, ALT 119 Assessment & Plan 76-year-old female with an early stage low risk left breast cancer for which she is on hormonal therapy. No signs of local or systemic recurrence. She is due for Prolia today for her osteoporosis prevention. We will go ahead and get back to her. She has had abnormal LFTs dating back a few years on and off. Her last imaging for her rectal procedure was that showed no liver lesions so I do not think it is related to any oncologic issues. She will follow-up with her GI surgery team at [facility] in November with repeat CT scan of the abdomen In terms of following her for her [...] PM EDT Office Visit Hematology/Oncology at [address] [phone] Mary Nails APRN [address] [place] [address] DR MEDICAL ONCOLOGY [place], [place] [id number] 11/02/2023 1:30 PM EDT Infusion Hematology Oncology at [address] [phone] documented as of this encounter Procedures Procedure Name Priority Date/Time Associated Diagnosis Comments COMPREHENSIVE METABOLIC PANEL (NON-FASTING) Routine 05/12/2022 documented in this encounter Results * Comprehensive metabolic panel (non-fasting) (05/12/2022) Creatinine 0.7 Alk Phos 199 AST 107 ALT 119 Blood Historical Provider MD CHEMISTRY ORDERAB LES documented in this encounter Visit Diagnoses Diagnosis Malignant neoplasm of upper-outer quadrant of left breast in female, estrogen receptor positive Osteopenia, unspecified location prison current use of aromatase inhibitor Use of aromatase inhibitors documented in this encounter Care Teams Splunk Dashboard Developer Relationship Specialty Start Date End Date Zeny James APRN [address] [place] [address] PCP - General Family Medicine 09/23/19 documented as of this encounter
--- OUTSIDE RECORDS SUMMARY | 2023-11-02 02:27 | XMS_ITS | Encounter Summary ---
Author Organization [facility] Address [facility] [place] [address] Care Team Providers Care Brick Layer Name Role Phone Zeny James APRN Primary Care Provider Reason for Visit * Reason Comments Medication Refill Encounter Details Date Type Department Care Team (Late st Contact Info) Description 03/04/2022 Refill Hematology/Oncology at [address] [phone] Jeffery Sazn MD [facility] HEMATOLOGY/[place] [address] Malignant neoplasm of upper-outer quadrant of left [...] PM EDT Office Visit Hematology/Oncology at [address] [phone] Mary Nails APRN [address] [place] [address] MEDICAL ONCOLOGY [place], [place] [id number] 11/02/2023 1:30 PM EDT Infusion Hematology Oncology at [address] [phone] documented as of this encounter Visit Diagnoses Diagnosis Malignant neoplasm of upper-outer quadrant of left breast in female, estrogen receptor positive documented in this encounter Care Teams Brick Layer Relationship Specialty Start Date End Date Zeny James APRN [address] [place] [address] PCP - General Family Medicine 09/23/19 documented as of this encounter
--- OUTSIDE RECORDS SUMMARY | 2023-11-02 02:27 | XMS_ITS | Encounter Summary ---
Author Organization [facility] [place] [address] Care Team Providers Care Pharmacy Retail Support Specialist Name Role Phone Zeny James APRN Primary Care Provider Reason for Visit * Reason Comments Medication Refill Encounter Details Date Type Department Care Team (Late st Contact Info) Description 12/08/2020 Refill Hematology [place] [phone] Roosevelt Dueñas MD [facility] DR HEMATOLOGY/[place] [address] Malignant neoplasm of upper-outer quadrant of left [...] encounter Miscellaneous Notes * Telephone Encounter - Delmy Rosales RN - 12/08/2020 10:07 AM EDT Received request via [employer] for refill of anastrozole. Per review of medical record- started mid Jan 2020 Last prescribed 12/2019 Script prepared and sent to provider for review, signature and escribe. documented in this encounter Plan of Treatment Upcoming Encounters Date Type Department Care Team (Late st Contact Info) Description 11/02/2023 1:00 PM EDT Office Visit Hematology/Oncology at [address] [phone] Mary Nails APRN [address] [place] [address] MEDICAL ONCOLOGY [place], [place] [address] 11/02/2023 1:30 PM EDT Infusion Hematology Oncology at [address] [phone] documented as of this encounter Visit Diagnoses Diagnosis Malignant neoplasm of upper-outer quadrant of left breast in female, estrogen receptor positive documented in this encounter Care Teams Pharmacy Retail Support Specialist Relationship Specialty Start Date End Date JairoshereeZaydaZeny JESUS ALBERTO [address] [place], [place] [address] PCP - General Family Medicine 09/23/19 documented as of this encounter
--- OUTSIDE RECORDS SUMMARY | 2023-11-02 02:27 | XMS_ITS | Encounter Summary ---
Author Organization [facility] [place] [address] Care Team Providers Care Human Services Worker Name Role Phone Zeny James PAST DUE ACCOUNTS CLERK Primary Care Provider Reason for Visit * Reason Comments Prior Authorization Creon 24,000-76,000- 120,[address] hagan Encounter Details Date Type Department Care Team (Late st Contact Info) Description 09/08/2022 Specialty [place] [phone] Yanely Moreland Social History Tobacco Use Types Packs/Day Years [...] place to sleep or slept in a assisted (including now)? No 04/29/2021 Sex and Gender Information Value Date Recorded Sex Assigned at Not on file Gender Identity Not on file Sexual Orientation Not on file documented as of this encounter Progress Notes * Yanely Moreland - 09/08/2022 9:23 AM EDT [facility], Benefits Investigation Patient: Linda Serrano Patient : 1945 Patient Address: [address] [place] [phone] (home) Medication Name: CREON 24,000-76,000-120,000 UNIT CAPSULE,DELAYED RELEASE Medication ID: [id number] Patient Location: [facility] 4 Patient Location Comment: Medication Strength Frequency Requested: TAKE 3 CAPSULES BY MOUTH WITH BREAKFAST , 4 CAPSULES WITH LUNCH AND DINNER. TAKE 1 CAPSULE WITH SNACKS TWICE DAILY (13 CAPSULES/DAY) Qty/Day Supply: 1170/90 New Start: New to Therapy Subscriber Insurance: [employer] Subscriber Insurance Comment: Fax: Physician: DAVIAN SHAH Physician Comment : PA Status: PA Not Needed Insurance requirements/notes: None Copay: $5139.36 Copay assistance: Patient Assistance Referral Copay assistance comment: No PA required- $2071.36 for 90 day supply and not eligible for copay card. Spoke with patient- wants to proceed with MAP via [facility]. Sent email referral to [facility]. Yanely Moreland 09/08/22 9:30 AM * Yanely Moreland - 09/08/2022 9:23 AM EDT [facility]- Poultry Processing Supervisor Assistance Referral [facility] has looked into assistance for the following patient, but we have not been able to find any copay cards or foundations with available funding for them. A referral has been sent to the [facility] MAP team. The patient is aware that the [facility] team will be reaching out, and we have provided the number to reach [facility] in case they have any further questions. Patient: Linda Serrano : 1945 Medication: CREON 24,000-76,000-120,000 UNIT CAPSULE,DELAYED RELEASE Dosing: TAKE 3 CAPSULES BY MOUTH WITH BREAKFAST , 4 CAPSULES WITH LUNCH AND DINNER. TAKE 1 CAPSULE WITH SNACKS TWICE DAILY (13 CAPSULES/DAY) Insurance: [employer] Medicare Part D?: Yes No PA required, current copay is: $2071.36 for 90 day supply. Yanely Moreland 09/08/22 9:32 AM documented in this encounter Plan of Treatment Upcoming Encounters Date Type Department Care Team (Late st Contact Info) Description 11/02/2023 1:00 PM EDT Office Visit Hematology/Oncology at [address] [phone] Mary Nails APRN [address] [place] [address] DR MEDICAL ONCOLOGY [place], [place] [phone] 11/02/2023 1:30 PM EDT Infusion Hematology Oncology at [address] [phone] documented as of this encounter Visit Diagnoses Not on filedocumented in this encounter Care Teams Human Services Worker Relationship Specialty Start Date End Date Zeny James APRN [address] [place] [address] PCP - General Family Medicine 09/23/19 documented as of this encounter
--- OUTSIDE RECORDS SUMMARY | 2023-11-02 02:27 | XMS_ITS | Encounter Summary ---
Author Organization [facility] Address [facility] [place] [address] Care Team Providers Care Concrete Pipe Plant Supervisor Name Role Phone Zeny James APRN Primary Care Provider Encounter Details Date Type Department Care Team (Late st Contact Info) Description 09/07/2021 Orders [place] [phone] Regino Carolina MD [facility] [place] [address] Social History Tobacco Use Types Packs/Day Years [...] PM EDT Office Visit Hematology/Oncology at [address] [phone] Mary Nails APRN [address] [place] [address] [place] [address] 11/02/2023 1:30 PM EDT Infusion Hematology Oncology at [address] [phone] documented as of this encounter Visit Diagnoses Not on filedocumented in this encounter Care Teams Concrete Pipe Plant Supervisor Relationship Specialty Start Date End Date Zeny James APRN [address] [place] [address] PCP - General Family Medicine 09/23/19 documented as of this encounter
--- OUTSIDE RECORDS SUMMARY | 2023-11-02 02:27 | XMS_ITS | Encounter Summary ---
Author Organization Counts Include [facility] Address [facility] [place] [address] Care Team Providers Care Enterprise Application Analyst Name Role Phone Zeny James APRN Primary Care Provider Encounter Details Date Type Department Care Team (Late st Contact Info) Description 11/10/2021 Orders [place] [phone] Regino Carolina MD [facility] [address] IPMN (intraductal papillary mucinous neoplasm) (Primary Dx) Social History Tobacco Use Types Packs/Day Years [...] PM EDT Office Visit Hematology/Oncology at [address] [phone] MEDICAL ONCOLOGY [place], [place] [phone] 11/02/2023 1:30 PM EDT Infusion Hematology Oncology at [address] [phone] documented as of this encounter Results * (ABNORMAL) Creatinine (12/28/2021 12:23 PM EDT) Creatinine 0.53(L) 0.70 - 1.20 mg/dL [facility] Estimated GFR 96 >=60 mL/min/1. 73 m?? [facility] Comment: This patient's [...] MD CHEMISTRY ORDERABL ES Performing Organization Address City/State/[facility] Co de Phone Number [facility] [place] [address] documented in this encounter Visit Diagnoses Diagnosis IPMN (intraductal papillary mucinous neoplasm)- Primary Neoplasm of unspecified nature of digestive system documented in this encounter Care Teams Enterprise Application Analyst Relationship Specialty Start Date End Date Zeny James APRN [address] [place] [address] PCP - General Family Medicine 09/23/19 documented as of this encounter
--- OUTSIDE RECORDS SUMMARY | 2023-11-02 02:27 | XMS_ITS | Encounter Summary ---
Author Organization [facility] [place] [address] Care Team Providers Care Outside Sales Inspector Name Role Phone Zeny James APRN Primary Care Provider Encounter Details Date Type Department Care Team (Late st Contact Info) Description 11/11/2021 1:00 PM EDT Office Visit Hematology/Oncology at [address] [phone] Jeffery Sanz MD [facility] HEMATOLOGY/[place] [address] Osteopenia, unspecified location; half-way current use of aromatase inhibitor; Malignant neoplasm [...] Sign Reading Time Taken Comments Blood Pressure 138/75 11/11/2021 12:54 PM EDT Pulse 74 11/11/2021 12:54 PM EDT Temperature 36.3 ??C (97.3 ??F) 11/11/2021 12:54 PM E DT Respiratory Rate 18 11/11/2021 12:54 PM EDT Oxygen Saturation 97% 11/11/2021 12:54 PM EDT Inhaled Oxygen Concentration - - Weight 44.6 kg (98 lb 6.4 oz) 11/11/2021 12:54 P M EDT Height 154.9 cm (5' 1) 11/11/2021 12:54 PM EDT Body Mass Index 18.59 11/11/2021 12:54 PM EDT documented in this encounter Progress Notes * Jeffery Sanz MD - 11/11/2021 1:00 PM EDT Subjective Patient ID: Linda Serrano is a 76 y.o. female. HPI The patient is a 76-year-old female that I am seeing in the [facility]. 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 The patient has no symptoms referable to her breast cancer or her anastrozole. She has been doing the best she can with her diet since she had her Whipple surgery. Still losing weight No fevers chills sweats. She has not noted any lumps or bumps. Energy is ok and she is very active.No dental issues Patient Active Problem List Diagnosis Code ??? [...] ??? Gastroparesis K31.84 ??? Osteopenia M85.80 ??? half-way current use of aromatase inhibitor Z79.811 Current Outpatient Medications: ??? evugum-zhiodsle-sslvdsu DR [place]) 24,000-76,000 -120,000 unit Capsule, Delayed Release(E.C.), Take 3 capsules po with breakfast, 4 capsules po with lunch and dinner, take 1 cap po with snacks BID (13 cap/day), Disp: 1170 capsule, Rfl: 3 ??? sennosides/docusate sodium (SENNA WITH DOCUSATE SODIUM ORAL), Take 1 tablet by mouth nightly., Disp: , Rfl: ??? anastrozole (Arimidex) 1 mg Tablet, Take 1 tablet by mouth daily., Disp: 90 tablet, Rfl: 3 ??? hydroCHLOROthiazide (Hydrodiuril) 12.5 mg Tablet, Take 12.5 mg by mouth daily., Disp: , Rfl: ??? omeprazole (PriLOSEC) 20 mg Capsule, Delayed Release(E.C.), Take 20 mg by mouth daily., Disp: ,Rfl: ??? vitamin E (vitamin E) 400 unit Capsule, Take 1 capsule by mouth daily., Disp: , Rfl: ??? aspirin EC 81 [...] hours as needed., Disp: , Rfl: ??? Wixela [...] g by mouth daily., Disp: , Rfl: ??? Blood-Glucose Meter Mis, 1 Application by [facility].(Non-Drug; Combo Route) route 3 times daily (before meals). (Patient not taking: No sig reported), Disp: 1 each, Rfl: 0 ??? acetaminophen (Tylenol) 500 mg Tablet, Take 2 tablets by mouth every 6 hours as needed for Pain. (Patient not taking: No sig reported), Disp: , Rfl: ??? fluticasone propionate (FLONASE) 50 mcg/actuation [place], Suspension, 1 spray by Each Nare routedaily as needed., Disp: , Rfl: Allergies Allergen Reactions ??? [...] systems reviewed and are negative. Objective BP 138/75 (Patient Position: Sitting) Pulse 74 Temp 36.3 ??C (97.3 ??F) (Temporal) Resp 18 Ht 154.9 cm (5' 1) Wt 44.6 kg (98 lb 6.4 oz) SpO2 97% BMI 18.59 kg/m?? Physical Exam Constitutional: General: She is [...] and oriented to person, place, and time. Breast: B mastectomy, no masses Creatinine .6, calcium 9.1 Assessment & Plan 76-year-old female with an early stage low risk left breast cancer for which she is on hormonal therapy. No signs of local or systemic recurrence. She is due for TechnoSpin today for her osteoporosis prevention. We will go ahead and get back to her. We will see her back in 6 months for routine follow-up. [facility] CT scan of the abdomen documented in this encounter Plan of Treatment Upcoming Encounters Date Type Department Care Team (Late st Contact Info) Description 11/02/2023 1:00 PM EDT Office Visit Hematology/Oncology at [address] [phone] Mary Nails APRN [address] [place] [address] MEDICAL [place] [address] 11/02/2023 1:30 PM EDT Infusion Hematology Oncology at [address] [phone] documented as of this encounter Procedures Procedure Name Priority Date/Time Associated Diagnosis Comments COMPREHENSIVE METABOLIC PANEL (NON-FASTING) Routine 11/11/2021 documented in this encounter Results * (ABNORMAL) Comprehensive metabolic panel (non-fasting) (11/11/2021) BUN 19(H) Creatinine 0.6 Sodium 133(L) Potassium 4.4 Calcium 9.1 Alk Phos 116 AST 69(H) ALT 82(H) Blood 11/11/2021 Historical Provider CHEMISTRY ORDERAB LES documented in this encounter Visit Diagnoses Diagnosis Osteopenia, unspecified location half-way current use of aromatase inhibitor Use of aromatase inhibitors Malignant neoplasm of left breast in female, estrogen receptor positive, unspecified site of breast Malignant neoplasm of upper-outer quadrant of left breast in female, estrogen receptor positive documented in this encounter Care Teams Outside Sales Inspector Relationship Specialty Start Date End Date Zeny James APRN [address] [place] [address] [address] [facility] [address] [place] [address] PCP - General Family Medicine 09/23/19 documented as of this encounter
--- OUTSIDE RECORDS SUMMARY | 2023-11-02 02:27 | XMS_ITS | Encounter Summary ---
Author Organization [facility] [place] [address] Care Team Providers Care Horticultural Specialty Grower Inside Name Role Phone Zeny James APRN Primary Care Provider [phone] Encounter Details Date Type Department Care Team (Late st Contact Info) Description 12/25/2020 Telephone Dermatology at [facility] [address] [place] [address] Estela Velasquez MD [facility] [place] [address] Social History Tobacco Use Types Packs/Day Years [...] encounter Miscellaneous Notes * Telephone Encounter - Courtney Medrano - 12/25/2020 2:[address] Velasquez patient Sybil, I spoke to Maricruz, and scheduled her ED&C with Dr. Velasquez on Monday01/11/21 at 4:00pm. Thank you, Courtney * Telephone Encounter - Courtney Medrano - 12/25/2020 2:40 PM EDT ----- Message from Sybil Morley LPN sent at 12/09/2020 10:24 AM EDT ----- Spoke with patient and discussed biopsy results today indicating a BCC. Reviewed recommendation from Dr. Velasquez for ED&C. Detailed message left at patient request #Will have tipple worker call and schedule an ED&C documented in this encounter Plan of Treatment Upcoming Encounters Date Type Department Care Team (Late st Contact Info) Description 11/02/2023 1:00 PM EDT Office Visit Hematology/Oncology at [address] [phone] Mary Nails APRN [address] [place] [address] DR MEDICAL ONCOLOGY [place], [place] [id number] 11/02/2023 1:30 PM EDT Infusion Hematology Oncology at [address] [phone] documented as of this encounter Visit Diagnoses Not on filedocumented in this encounter Care Teams Horticultural Specialty Grower Inside Relationship Specialty Start Date End Date Zeny James APRN [address] [place] [address] PCP - General Family Medicine 09/23/19 documented as of this encounter
--- OUTSIDE RECORDS SUMMARY | 2023-11-02 02:27 | XMS_ITS | Encounter Summary ---
Author Organization [facility] Address [facility] [place] [address] Care Team Providers Care Acidizer Name Role Phone Zeny James APRN Primary Care Provider Encounter Details Date Type Department Care Team (Late st Contact Info) Description 07/04/2022 Orders Only [place] [address] Regino Carolina MD [facility] [place] [address] Social History Tobacco Use Types Packs/Day Years [...] 1:00 PM EDT Office Visit Hematology/Oncology at [address] [phone] Mary Nails APRN [address] [place] [address] [place] [address] 11/02/2023 1:30 PM EDT Infusion Hematology Oncology at [address] [phone] documented as of this encounter Visit Diagnoses Not on filedocumented in this encounter Care Teams Acidizer Relationship Specialty Start Date End Date Zeny James APRN [address] [place] [address] PCP - General Family Medicine 09/23/19 documented as of this encounter
--- OUTSIDE RECORDS SUMMARY | 2023-11-02 02:27 | XMS_ITS | Encounter Summary ---
Author Organization [facility] [place] [address] Care Team Providers Care Multimedia Educational Specialist Name Role Phone Zeny James APRN Primary Care Provider Encounter Details Date Type Department Care Team (Late st Contact Info) Description 03/29/2021 Telephone [place] [address] Regino Carolina MD [facility] [place] [address] Social History Tobacco Use Types Packs/Day Years [...] encounter Miscellaneous Notes * Telephone Encounter - Regino Carolina MD - 03/29/2021 5:58 PM EST I called Maricruz to let her know that I reviewed the labs from 03/19/21 - I left a message for her to call me but the labs all look good. 03/19/2021 WBC 8.52, hemoglobin 13.6, platelet 355 calcium 9.5, glucose 120, BUN 15, creatinine 0.7,albumin 4.2, total bilirubin 0.6, alkaline phosphatase 259, AST 72, ALT 96, ferritin 19 (8-252 ng/mL), vitamin B12 779 (193-986 pg/mL) Jennifer Carolina MD 03/30/2021 9:55 AM documented in this encounter Plan of Treatment Upcoming Encounters Date Type Department Care Team (Late st Contact Info) Description 11/02/2023 1:00 PM EDT Office Visit Hematology/Oncology at [address] [phone] Mary Nails APRN [address] [place] [address] DR MEDICAL ONCOLOGY [place], [place] [id number] 11/02/2023 1:30 PM EDT Infusion Hematology Oncology at [address] [phone] documented as of this encounter Visit Diagnoses Not on filedocumented in this encounter Care Teams Multimedia Educational Specialist Relationship Specialty Start Date End Date Zeny James APRN [address] [place] [address] PCP - General Family Medicine 09/23/19 documented as of this encounter
--- OUTSIDE RECORDS SUMMARY | 2023-11-02 02:27 | XMS_ITS | Encounter Summary ---
Author Organization [facility] Address [facility] [place] [address] Care Team Providers Care Human Resources Associate Name Role Phone Zeny James LEAD CARGO MOVER Primary Care Provider Encounter Details Date Type Department Care Team (Latest Contact Info) Description 02/24/2022 Travel Social History Tobacco Use Types Packs/Day [...] PM EDT Office Visit Hematology/Oncology at [address] [phone] Mary Nails APRN [address] [place] [address] MEDICAL ONCOLOGY [place], [place] [address] 11/02/2023 1:30 PM EDT Infusion Hematology Oncology at [address] [phone] documented as of this encounter Visit Diagnoses Not on filedocumented in this encounter Care Teams Human Resources Associate Relationship Specialty Start Date End Date Zeny James APRN [address] [place] [address] [address] [place] [address] PCP - General Family Medicine 09/23/19 documented as of this encounter
--- OUTSIDE RECORDS SUMMARY | 2023-11-02 02:27 | XMS_ITS | Encounter Summary ---
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 [address] Jeffery Sanz MD [facility] DR HEMATOLOGY/[place] [address] Referral ID Status Reason Start Date Expiration Date V isits Requested Visits Authorized [id number] Authorized 04/17/2022 07/03/2023 99 99 Encounter Details Date Type Department Care Team (Late st Contact Info) Description 11/11/2021 1:30 PM EDT Infusion Hematology Oncology at [address] [phone] Osteopenia, unspecified location; snf current use of aromatase inhibitor; Malignant neoplasm [...] Progress Notes * Coni Gorman, LOS - 11/11/2021 1:30 PM EDT INFUSION THERAPY ADMINISTRATION NOTES TIME TREATMENT STARTED: 1330 TIME TREATMENT ENDED: 1400 DIAGNOSIS: breast cancer PROTOCOL:na CYCLE #: every 6 months REASON FOR VISIT: prolia SUBJECTIVE Linda Serrano offers no complaints. OBJECTIVE LAB DATA: calcium 9.1, albumin 3.7 prolia given in left upper arm REACTIONS (DESCRIPTION, TIME, INTERVENTION AND EFFECTIVENESS) none ASSESSMENT Linda Serrano was awake, alert and he tolerated treatment well. PLAN Return to clinic per routine. 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 Monitor patients with severe impairment (CRCL less than 30 mL/minute or on dialysis) due to increased risk of hypocalcemia., Restricted to outpatient use. Requires P&T approval for inpatient use. Use in outpatient setting Given 11/11/2021 1:58 PM EDT 60 mg Left Arm documented in this encounter Care Teams Lumber Checker Relationship Specialty Start Date End Date Zeny James APRN [address] [place] [address] PCP - General Family Medicine 09/23/19 documented as of this encounter
--- OUTSIDE RECORDS SUMMARY | 2023-11-02 02:27 | XMS_ITS | Encounter Summary ---
Author Organization [facility] [place] [address] Care Team Providers Care Director Of Agriculture Name Role Phone Zeny James APRN Primary Care Provider Reason for Visit * Reason Comments Medication Refill Encounter Details Date Type Department Care Team (Late st Contact Info) Description 07/22/2022 Refill [place] [phone] Regino Carolina MD [facility] [place] [address] Social History Tobacco Use Types Packs/Day Years [...] PM EDT Office Visit Hematology/Oncology at [address] [phone] Mary Nails APRN [address] [place] [address] DR MEDICAL ONCOLOGY [place], [place] [address] 11/02/2023 1:30 PM EDT Infusion Hematology Oncology at [address] [phone] documented as of this encounter Visit Diagnoses Not on filedocumented in this encounter Care Teams Director Of Agriculture Relationship Specialty Start Date End Date Zeny James APRN [address] [place] [address] [address] [place] [address] PCP - General Family Medicine 09/23/19 documented as of this encounter
--- OUTSIDE RECORDS SUMMARY | 2023-11-02 02:27 | XMS_ITS | Encounter Summary ---
Author Organization [facility] Address [facility] [place] [address] Care Team Providers Care Department Head Name Role Phone Zeny James APRN Primary Care Provider Encounter Details Date Type Department Care Team (Late st Contact Info) Description 07/19/2022 Orders Only [place] [phone] Regino Carolina MD [facility] [place] [address] Social History Tobacco Use Types Packs/Day Years [...] as of this encounter Progress Notes * Arline Verde RN - 07/19/2022 3:18 PM EDT Pt had called wondering if there was a more cost effective way to get the Creon. She states she finally has the Creon dialed in and is hesitant to change to something other than Creon. Discussed with Aurelia Negrete RD. She spoke with our specialty pharmacy. ZenPep is not more cost effective. The best cost for the patient for Creon is if she gets a 1 month supply at a time. I called the patient to explain this and let her know that [facility] mail away pharmacy usually requests 90 day supply prescriptions. Pt did not have a local pharmacy that she preferred so we will sendthe prescription to the [facility]. Pt given the phone number so shecan connect with them. Pt will call with further questions/concersn. Pt agrees with the plan. documented in this encounter Plan of Treatment Upcoming Encounters Date Type Department Care Team (Late st Contact Info) Description 11/02/2023 1:00 PM EDT Office Visit Hematology/Oncology at [address] [phone] Mary Nails APRN [address] [place] [address] [place] [address] 11/02/2023 1:30 PM EDT Infusion Hematology Oncology at [address] [phone] documented as of this encounter Visit Diagnoses Not on filedocumented in this encounter Care Teams Department Head Relationship Specialty Start Date End Date Zeny James APRN [address] [place] [address] [address] [place], [place] [id number] PCP - General Family Medicine 09/23/19 documented as of this encounter
--- OUTSIDE RECORDS SUMMARY | 2023-11-02 02:27 | XMS_ITS | Encounter Summary ---
Author Organization Formerly [facility] [place] [address] Care Team Providers Care Oxyacetylene Welder Name Role Phone Zeny James APRN Primary Care Provider Reason for Visit * Reason Comments Skin Check Encounter Details Date Type Department Care Team (Late st Contact Info) Description 12/03/2020 10:30 AM EDT Office Visit Dermatology at [place] [address] [place] [address] Estela Cavazos MD [facility] [place] [address] Reyes angioma; Seborrheic keratosis; Solar lentigo; Multiple benign nevi; History of basal cell carcinoma; Seborrheic keratosis, inflamed; Neoplasm of uncertain behavior of skin Social History Tobacco Use Types Packs/Day [...] Progress Notes * Estela Cavazos MD - 12/03/2020 10:30 AM EDT Images from the original note were not included. DEPARTMENT OF DERMATOLOGY Medical D[facility]atology Clinic Provider: ESTELA CAVAZOS MD Patient's preferred name Linda Preferred contact method for results []myDH []Letter [x]Phone: Home Detailed phone message OK? Yes PAST MEDICAL HISTORY If no, type N. If yes, type date, location, treatment Melanoma N Dysplastic nevi N SCC N BCC 01/2010 [address] [facility] [address]2 UV Exposure & [...] thinners: ASA 81mg, Vitamin E, Pravastatin 20mg, [place]-3 Pacemaker, defibrillator, deep brain stimulator, cochlear implant: No History of Present Illness: Linda Serrano is a 75 y.o. year old. Patient returns to clinic todayfor a full skin exam and she reports a spot on the right posterior calf that is asymptomatic. Last visit at [facility] Derm: 11/25/2019 Last visit with this provider: 11/25/2019 Medications: Reviewed in eD-H Allergies: Reviewed in eD-H Skin Examination: Full skin examination: Patient asked to undress to their comfort level. erbalized that the provider's preference is that patient removal all clothing and that the provider will not examine areas patient elects to keep covered. Patient elects to keep underwear on and have the following examined: scalp, hair, head, face, ears, neck, chest, axillae, abdomen, back, and left and right upper and lower extremities. Genitalia and buttocks were not examined. Assessment/Plan A.??Reyes Angiomas -Multiple 0.2-0.4cm bright red, well-demarcated papules - Reassured about benign nature and natural history. ?? B. Seborrheic Keratoses -Multiple 0.4-1 cm, brown-black papules/plaques with waxy stuck on appearance - Reassured about benign nature and natural history. ?? C.??Solar Lentigines -Blotchy pigmentation and telangiectasia on sun-exposed skin with subtle yellowish cobblestoned appearance. - Reassured about benign nature and natural history. - Sun avoidance, protective clothing and the use of SPF 30 sunscreen is advised. Observe closely for skin changes and call if such occurs ?? D. Benign Appearing Nevi -Multiple, 0.3-0.5cm, medium-brown, evenly-pigmented macules and papules. All with regular pigment pattern on dermoscopy. No pigmented lesions suspicious for melanoma. - Reassured about benign nature and natural history. ?? E. SBCC - NER - Will continue to monitor F. Irritated Seborrheic Keratosis -Verrucous stuck on papule with surrounding erythema on the rightarm - Benign, but symptomatic. Procedure Note: Procedure: Destruction of lesion(s) with cryotherapy. Number: 1 Location: as above Discussed procedure and expectations including risks (including risk of hypopigmentation) and benefits. Verbal consent obtained. Frozen with LN2, 15-30 second thaw time, TWICE. There were no complications; the patient tolerated the procedure well. Post-procedure expectations and wound care were reviewed. G. Neoplasm of the Skin DDx: BCC 0.3 cm shiny bright pink papule right posterior calf Procedure: Skin biopsy by shave technique Time of procedure: 1045 Location: right posterior calf Discussed indications for procedure and expectations [...] were reviewed. Follow-up based on pathology results. Other items to document in the assessment/plan if relevant ??? N/A RTC: 1 year for FSE []Note routed to workers compensation legal secretary [x]Recall has been placed in scheduling system []Appointment scheduled at checkout Scribe attestation: Laura Cruz LPN who has performed the documentation for this encounter inthe presence of and acting as a scribe for ESTELA CAVAZOS MD. I performed the above scribed service and agree with the accuracy of the documentation in this encounter. Reviewed and signed by: ESTELA CAVAZOS MD Dermatology [facility] documented in this encounter Plan of Treatment Upcoming Encounters Date Type Department Care Team (Late st Contact Info) Description 11/02/2023 1:00 PM EDT Office Visit Hematology/Oncology at [address] [phone] Mary Nails [address] MEDICAL ONCOLOGY [place], [place] [id number] 11/02/2023 1:30 PM EDT Infusion Hematology Oncology at [address] [phone] documented as of this encounter Procedures Procedure Name Priority Date/Time Associated Diagnosis Comments SPECIMEN TO PATHOLOGY Routine 12/03/2020 10:50 AM EDT Neoplasm of uncertain behavior of skin SURGICAL PATHOLOGY REPORT Routine 12/03/2020 10:45 AM EDT documented in this encounter Results * Specimen to Pathology (12/03/2020 10:50 AM EDT) AP Specimen 12/03/2020 10:5 0 AM EDT 12/03/2020 10:50 AM EDT Narrative [facility] - 12/03/2020 10:50 AM EDT Specimen requisition ordered. ??Separate Pathology report to follow Estela Cavazos MD PATHOLOGY/CYTOLOGY O RDERABLES [facility] [place] [address] * Surgical Pathology Report (12/03/2020 10:45 AM EDT) Surgical Pathology Report [id number] ? Location: HDM The signing pathologist has (i) examined the relevant preparation(s) for the specimen(s) and (ii) rendered or confirmed the diagnosis(es). . ?Surgical Pathology DIAGNOSIS Right posterior calf, skin shave removal: - ??Basal cell carcinoma, superficial type with infiltrating features and squamous differentiation, ??extends to the deep specimen edge Electronically signed by: ?Nicole CLANCY, Larry Alcaraz Verified: ??12/07/2020 14:28 ??Dermatopatholo gist Performed at: ??-[facility], [place], [place] SPECIMEN(S) SUBMITTED A - Right posterior calf, skin shave removal (1) CLINICAL INFORMATION BCC, 0.3 cm shiny bright pink papule right posterior SPECIMEN PROCESSING A - Labeled/Fixative : Patient demographics, formalin. Quantity/Size: ??Single, 0.8 x 0.6 x 0.1 cm. Tissue Description: Shave of serrano-white skin with a central 0.4 cm centrally depressed serrano-pink crust. Sections/Process ing: Inked, trisected and entirely submitted in 1 cassette labeled A1. ??pps [facility] 12/03/2020 10:4 5 AM EDT Estela Cavazos MD PATHOLOGY/CYTOLOGY O RDERABLES [facility] [place] [address] documented in this encounter Visit Diagnoses Diagnosis Reyes angioma Nevus, non-neoplastic Seborrheic keratosis Other seborrheic keratosis Solar lentigo Other dyschromia Multiple benign nevi Benign neoplasm of skin, site unspecified History of basal cell carcinoma Personal history of other malignant neoplasm of skin Seborrheic keratosis, inflamed Inflamed seborrheic keratosis Neoplasm of uncertain behavior of skin documented in this encounter Care Teams Oxyacetylene Welder Relationship Specialty Start Date End Date Zeny James APRN [address] [place] [address] [address] [place] [address] PCP - General Family Medicine 09/23/19 documented as of this encounter
--- OUTSIDE RECORDS SUMMARY | 2023-11-02 02:28 | XMS_ITS | Encounter Summary ---
Author Organization [facility] [place] [address] Care Team Providers Care Production Grip Name Role Phone VasuZeny santos JESUS ALBERTO Primary Care Provider Encounter Details Date Type Department Care Team (Late st Contact Info) Description 05/21/2020 Orders [place] [address] Regino Carolina MD [facility] [place] [address] Other iron deficiency anemia; Pancreatic insufficiency Social History Tobacco Use Types Packs/Day [...] 1:00 PM EDT Office Visit Hematology/Oncology at [address] [phone] Mary Nails ASW/ASUW TACTICAL AIR CONTROLLER [address] [place] [address] DR MEDICAL ONCOLOGY [place], [place] [id number] 11/02/2023 1:30 PM EDT Infusion Hematology Oncology at [address] [phone] Scheduled Orders Name Type Priority Associated Diagnoses Orde r Schedule Comprehensive metabolic panel (non-fasting) Lab Routine Other iron deficiency anemia Expected: 09/22/2020 (Approximate), Expires: 03/24/2021 CBC (with Diff) Lab Routine Other iron deficiency anemia Expected: 09/22/2020 (Approximate), Expires: 03/24/2021 documented as of this encounter Results * Vitamin E (09/28/2020 11:52 AM EDT) [facility] Vitamin E 14.1 5.5 - 17.0 mg/L [facility] Comment: ADDITIONAL INFORMATION This test was developed and its performance characteristics determined by [facility] in a manner consistent with CLIA requirements. This test has not been cleared or approved by the U.S. Food and Drug Administration. Test Performed by: [facility] [place] [address] Wire Strander: Denzel Angel M.D. Ph.D.; CLIA# [id number] Blood 09/28/2020 11:5 2 AM EDT 09/28/2020 1:35 PM EDT Narrative Resulting Agency Comment Spec In Lab Regino Carolina MD CHEMISTRY ORDERABL ES [facility] [place] [address] * Vitamin D, 25-Hydroxy (09/28/2020 11:52 AM EDT) 25-OH Vit D Total 36 21 - 100 ng/mL [facility] 25-OH Vit D Interp Sufficient [facility] Blood 09/28/2020 11:5 2 AM EDT 09/28/2020 12:17 PM EDT Narrative Resulting Agency Comment Spec In Lab Regino Carolina MD CHEMISTRY ORDERABL ES Performing Organization Address [facility]/ZIP Co de Phone Number [facility] [place] [address] * Vitamin B12 (09/28/2020 11:52 AM EDT) Pathologist [facility] Vitamin B-12 958 232 - 1,245 pg/mL [facility] Blood 09/28/2020 11:5 2 AM EDT 09/28/2020 12:17 PM EDT Narrative Resulting Agency Comment Spec In Lab Regino Carolina MD CHEMISTRY ORDERABL ES Performing Organization Address [facility] Co de Phone Number [facility] [place] [address] * (ABNORMAL) Vitamin A (09/28/2020 11:52 AM EDT) [facility] Vitamin A 31.9(L) 32.5 - 78.0 mcg/dL [facility] Comment: ADDITIONAL INFORMATION This test was developed and its performance characteristics determined by [facility] in a manner consistent with CLIA requirements. This test has not been cleared or approved by the U.S. Food and Drug Administration. Test Performed by: [facility] [place] [address] Wire Strander: Denzel Angel M.D. Ph.D.; CLIA# [id number] Blood 09/28/2020 11:5 2 AM EDT 09/28/2020 4:35 PM EDT Narrative Resulting Agency Comment Spec In Lab Regino Carolina MD CHEMISTRY ORDERABL ES Performing Organization Address [facility]/ZIP Co de Phone Number [facility] [place] [address] * (ABNORMAL) Iron and TIBC (09/28/2020 11:52 AM EDT) Iron 63 30 - 150 mcg/dL [facility] TIBC 342 250 - 450 mcg/dL [facility] Iron Saturation 18(L) 20 - 50 % [facility] Blood 09/28/2020 11:5 2 AM EDT 09/28/2020 12:17 PM EDT Narrative Resulting Agency Comment Spec In Lab Regino Carolina MD CHEMISTRY ORDERABL ES Performing Organization Address City/[facility]/ZIP Co de Phone Number [facility] [place] [address] * (ABNORMAL) Ferritin (09/28/2020 11:52 AM EDT) Ferritin 19(L) 30 - 400 ng/mL [facility] Comment: Pediatric reference ranges not verified at [facility], interpret with caution. Reference ranges for females greater than 50 years of age approach values for men, i.e., 30-400 ng/mL. Blood 09/28/2020 11:5 2 AM EDT 09/28/2020 12:17 PM EDT Narrative Resulting Agency Comment Spec In Lab Regino Carolina MD CHEMISTRY ORDERABL ES Performing Organization Address City/[facility]/ZIP Co de Phone Number [facility] [place] [address] documented in this encounter Visit Diagnoses Diagnosis Other iron deficiency anemia Pancreatic insufficiency Other specified disease of pancreas documented in this encounter Care Teams Production Grip Relationship Specialty Start Date End Date Zeny James APRN [address] [place] [address] PCP - General Family Medicine 09/23/19 documented as of this encounter
--- OUTSIDE RECORDS SUMMARY | 2023-11-02 02:28 | XMS_ITS | Encounter Summary ---
Author Organization Formerly [facility] [place] [address] Care Team Providers Care Circular Clerk Name Role Phone Zeny James APRN Primary Care Provider Encounter Details Date Type Department Care Team (Late st Contact Info) Description 05/11/2020 9:00 AM EST Telephone Hematology [place] [phone] A[address]lia Negrete [address] Social History Tobacco Use [...] Telephone Encounter - Aurelia Negrete RD - 05/11/2020 7:55 AM EST [facility] Dietitian Follow Up Call Linda is 74 years with newly diagnosed IPMN, s/p Whipple Resection Operations/Major Procedures: Operations: 03/23/2020 Surgeon(s) and Role: * Regino Carolina MD - Primary: Procedure(s): ROBOTIC PANCREATECTOMY,WHIPPLE, PARTIAL GASTRECTOMY W/ PANCREATOJEJUNOSTOMY MODIFIER ROBOT,DAVINCI XI @OMENTAL FLAP, INTRA-ABDOMINAL (WRVU 6.54) Home TPN: 1100 mL daily, 100g Dex, 90g AA and 40g Lipids to provide 1100 kcals/bag and an average of 550 kcals/day with pt???s oafyr-efnux-qkknf infusion schedule. Objective: Per Maricruz, weight is stable at 116 pounds Wt Readings from Last 3 Encounters: 04/21/20 53.5 kg (118 lb) 03/27/20 53.3 kg (117 lb 9.6 oz) 01/28/20 55.8 kg (123 lb) Weight History: UBW: %UBW: IBW: %IBW: Weight loss%: Usual weight is 120 pounds Assessment/Plan: 1. Per food record, consuming 9696-2894 kcals/D. Appetite remains low but mindful of eating regardless. She does sense queasiness/?hunger--consumes food and feels better. 2. Recommend discontinue every other night TPN / Communication sent to [facility]. Nicolle Calero RDN. 3. Slow bowels: dosing Senna-s One twice daily. Recommend incr to two in the pm. Stools are hard, moving once daily. 4. Will plan to see on May 19, recommend PICC line removal on that date if possible. documented in this encounter Plan of Treatment Upcoming Encounters Date Type Department Care Team (Late st Contact Info) Description 11/02/2023 1:00 PM EDT Office Visit Hematology/Oncology at [address] [phone] Mary Nails APRN [address] [place] [address] DR MEDICAL ONCOLOGY [place], [place] [phone] 11/02/2023 1:30 PM EDT Infusion Hematology Oncology at [address] [phone] documented as of this encounter Visit Diagnoses Not on filedocumented in this encounter Care Teams Circular Clerk Relationship Specialty Start Date End Date Zeny James APRN [address] [place] [address] PCP - General Family Medicine 09/23/19 documented as of this encounter
--- OUTSIDE RECORDS SUMMARY | 2023-11-02 02:28 | XMS_ITS | Encounter Summary ---
Author Organization [facility] [place] [address] Care Team Providers Care Small Products Ii Assembler Name Role Phone VasuZeny santos JESUS ALBERTO Primary Care Provider Encounter Details Date Type Department Care Team (Late st Contact Info) Description 07/13/2020 Orders Only [place] [address] Regino Carolina MD [facility] [place] [address] Other iron deficiency anemia; Pancreatic insufficiency Social [...] 1:00 PM EDT Office Visit Hematology/Oncology at [address] [phone] Mary Nails MUSIC CRITIC [address] [place] [address] DR MEDICAL ONCOLOGY [place], [place] [address] 11/02/2023 1:30 PM EDT Infusion Hematology Oncology at [address] [phone] documented as of this encounter Visit Diagnoses Diagnosis Other iron deficiency anemia Pancreatic insufficiency Other specified disease of pancreas documented in this encounter Care Teams Small Products Ii Assembler Relationship Specialty Start Date End Date Zeny James APRN [address] [place], [place] [address] PCP - General Family Medicine 09/23/19 documented as of this encounter
--- OUTSIDE RECORDS SUMMARY | 2023-11-02 02:28 | XMS_ITS | Encounter Summary ---
Author Organization [facility] [place] [address] Care Team Providers Care Optical Dispenser Name Role Phone Zeny James APRN Primary Care Provider Encounter Details Date Type Department Care Team (Late st Contact Info) Description 05/01/2020 Telephone Hematology [place] [phone] Aurelia Negrete, JOSE MANUEL Social History Tobacco [...] Telephone Encounter - Aurelia Negrete RD - 05/01/2020 10:00 AM EST Received phone call from Maricruz--loose, frequent stools --started on Monday, small pellet BM, moved bowels well at 3pm and three more times following. Monday/off of TPN, additional loose stools this morning. She is dosing Senna-s, two, twice daily. Prior to [place], bowels moved without issue-relied on both yogurt and Kombucha which she felt workedwell to regulate her bowels. Occasional smooth move tea. Stopped Reglan a few days ago. Nausea once in a while but not a significant issue. Yesterday: Kathy noodles with margarine and salt and it went down well. Afterwards, difficult to eat to consume evening meal but ate light meal. Phone call from endocrinology / wants a work up with pre-diabetes/she declined- will continue to monitor blood sugars with every other night TPN and once off of TPN, and pending blood sugars/will contact her PCP and consider local endocrinology consult. Blood sugars 140s on mornings when off of TPN, 170's morning she disconnects from TPN. Used to walk 3-5 miles - looks forward to eventually returning to this. Recommend decrease Senna-s to one twice daily. I will plan to talk with Maricruz on May 04--she will text/send her food log. May need to run TPN everyother night for another week before discontinuing. documented in this encounter Plan of Treatment Upcoming Encounters Date Type Department Care Team (Late st Contact Info) Description 11/02/2023 1:00 PM EDT Office Visit Hematology/Oncology at [address] [phone] Mary Nails APRN [address] [place] [address] MEDICAL ONCOLOGY [place], [place] [address] 11/02/2023 1:30 PM EDT Infusion Hematology Oncology at [address] [phone] documented as of this encounter Visit Diagnoses Not on filedocumented in this encounter Care Teams Optical Dispenser Relationship Specialty Start Date End Date Zeny James APRN [address] [place], [place] [address] PCP - General Family Medicine 09/23/19 documented as of this encounter
--- OUTSIDE RECORDS SUMMARY | 2023-11-02 02:28 | XMS_ITS | Encounter Summary ---
Author Organization [facility] [place] [address] Care Team Providers Care Drum Tender Name Role Phone Zeny James APRN Primary Care Provider Encounter Details Date Type Department Care Team (Late st Contact Info) Description 05/19/2020 2:30 PM EST Clinical Support [place] [address] IPMN (intraductal papillary mucinous neoplasm) Social History [...] as of this encounter Progress Notes * Aurelia Negrete RD - 05/19/2020 2:30 PM EST [facility] Dietitian Follow Up Visit Linda is 74 years with newly diagnosed IPMN, s/p Whipple Resection Operations/Major Procedures: Operations: 03/23/2020 Surgeon(s) and Role: * Regino Carolina MD - Primary: Procedure(s): ROBOTIC PANCREATECTOMY,WHIPPLE, PARTIAL GASTRECTOMY W/ PANCREATOJEJUNOSTOMY MODIFIER ROBOT,DAVINCI XI @OMENTAL FLAP, INTRA-ABDOMINAL (WRVU 6.54) Home TPN: 1100 mL daily, 100g Dex, 90g AA and 40g Lipids to provide 1100 kcals/bag and an average of 550 kcals/day with pt???s hmlbb-lpsuj-gyxvk infusion schedule/discontinued Doing ok with increasing kcal intake--there are some foods she has not tried again: yogurt, pot chips (right through me) but attributes to previous food aversions Senna-s: one in am, two at night Creon 24: dosing one with meals Soup for lunch and crackers/squash or vegetable kale soup Last night: anais(two) Objective: Per Marciruz, weight is stable at 116 pounds Wt Readings from Last 3 Encounters: 05/19/20 52.9 kg (116 lb 9.6 oz) 04/21/20 53.5 kg (118 lb) 03/27/20 53.3 kg (117 lb 9.6 oz) Wt Readings from Last 3 Encounters: 04/21/20 53.5 kg (118 lb) 03/27/20 53.3 kg (117 lb 9.6 oz) 01/28/20 55.8 kg (123 lb) Weight History: UBW: %UBW: IBW: %IBW: Weight loss%: Usual weight is 120 pounds Assessment/Plan: 1. Appetite is fair/weight is stable. 2. Successfully weaned off of TPN/PICC line removed today. 3. AMANDA: discussed PERT, dosing up incrementally by one capsule if signs/symptoms of AMANDA are present. 4. Maricruz's blood sugars 118-140mg/dL--was advised by Dr Carolina to check once daily 5. I will enter [place] nutrition labs and CBC with diff and CMP for 6 mos visit. I will call Maricruz in another 8 weeks to check in. She has resumed her Vit/Min supplements to include Vit D, Calcium/D3, B Complex, MVI and mineral. documented in this encounter Plan of Treatment Upcoming Encounters Date Type Department Care Team (Late st Contact Info) Description 11/02/2023 1:00 PM EDT Office Visit Hematology/Oncology at [address] [phone] Mary Nails, CAMP DISHWASHER [address] [place] [address] [place] [address] 11/02/2023 1:30 PM EDT Infusion Hematology Oncology at [address] [phone] documented as of this encounter Visit Diagnoses Diagnosis IPMN (intraductal papillary mucinous neoplasm) Neoplasm of unspecified nature of digestive system documented in this encounter Care Teams Drum Tender Relationship Specialty Start Date End Date Zeny James APRN [address] [place], [place] [id number] PCP - General Family Medicine 09/23/19 documented as of this encounter
--- OUTSIDE RECORDS SUMMARY | 2023-11-02 02:28 | XMS_ITS | Encounter Summary ---
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 Social History Tobacco Use Types Packs/Day Years [...] Sign Reading Time Taken Comments Blood Pressure 142/69 07/06/2020 9:45 AM EDT Pulse 75 07/06/2020 9:45 AM EDT Temperature 36.4 ??C (97.5 ??F) 07/06/2020 9:45 AM ED T Respiratory Rate 13 07/06/2020 9:45 AM EDT Oxygen Saturation 100% 07/06/2020 9:45 AM EDT Inhaled Oxygen Concentration - - Weight 53.7 kg (118 lb 4.8 oz) 07/06/2020 9:45 A M EDT Height 155.2 cm (5' 1.1) 07/06/2020 9:45 AM EDT Body Mass Index 22.28 07/06/2020 9:45 AM EDT documented in this encounter Progress Notes * Roosevelt Dueñas MD - 07/06/2020 10:15 AM EDT Breast Cancer follow-up HPI: Abnormal screening [...] cancer cells with immunostaining) Stain intensity: Strong SC immunoreactivity: Negative (<1% cancer cells with immunostaining) HER2 FISH: NEGATIVE FOR HER2/GREG AMPLIFICATION 12/05/19 PET/CT without e/o metastatic disease 12/20/19 Surgery A - Left breast, simple mastectomy - Invasive lobular carcinoma. - The tumor is 1.4 mm to deep RM in specimen A - See synoptic for final RM. - Lobular carcinoma in-situ, ?? conventional ??and variant types (see Discussion.) - Focal atypical ??ductal ??hyperplasia. B - [...] (Millimeters): ??Greater than 10 mm ? Closest Margin(s):??with additional margin re-excision, all RM > 10 mm Lymph Nodes ?Regional Lymph Nodes: ??Uninvolved by tumor cells ? Total Number of Lymph Nodes Examined: ??2 ? Number of Thoreau Nodes Examined: ??2 Pathologic Stage Classification (pTNM, AJCC 8th Edition) ?pT1c pN0 OncotypeDx Recurrence Score = 23, which as per T[employer]or[employer] trial, does not warrant adjuvant chemo. Started anastrazole mid Jan mid Jan. PMH: Past Medical History: Diagnosis Date ??? Basal cell carcinoma 2009 [facility]-back ??? Breast cancer ??? Pre-diabetes 03/30/2020 Prior breast cancer was a Right breast invasive lobular ca, s/p mastectomy, in 2000 (age 55). Two of 9 nodes were positive. ER-pos/SC-neg. Received AC/Taxol. Then took tamoxifen for 5 [...] grade dysplasia, involving??main and brunch ducts. > Scheduled to receive 2nd MODERNA vaccination for COVID-19 on 07/10/20. 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 Lives alone ( 8 yr ago). Family History Problem Relation Age of Onset ??? Breast Cancer Sister 46 CHEK2 mutation ??? Ovarian Cancer Neg Hx Sister had some genetic testing in early . Patient indicates her sister had a CHEK2 mutation. 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 The following 47 genes were analyzed: APC, ZAIDA, AXIN2, BARD1, BMPR1A, BRCA1, BRCA2, BRIP1, CDH1, CDK4,CDKN2A, CHEK2, CTNNA1, DICER1, EPCAM, GREM1, HOXB13, KIT, MEN1, MLH1, MSH2, MSH3, MSH6, MUTYH, NBN,NF1, NTHL1, PALB2, PDGFRA, PMS2, POLD1, POLE, PTEN, RAD50, RAD51C, RAD51D, SDHA, SDHB, SDHC, SDHD, SMAD4, SMARCA4, STK11, TP53, TSC1, TSC2, and VHL. Interval Hx/ROS: Tolerating anastrazole ok. No hot flashes. Aches in hips/knees decrease with walking. No new problems with MATOS, diplopia, cough, SOB, pain, palpitations, fevers, bleeding, nausea/emesis, weakness, imbalance, falls. ROS otherwise neg. Exam: Patient Vitals for the past 24 hrs: Temp Pulse Resp BP SpO2 07/06/20 0945 36.4 ??C (97.5 ??F) 75 13 142/69 100 % PERRL, EOMi, sclera nonicteric No MATTHEW No spine tenderness Chest: clear to A and P S/P bilateral mastectomy, no nodules CV: RRR, no murmurs Abd: NT, no HSM, +BS Ext: no c/c/e Neuro: grossly nonfocal. Most recent labs: Ref. Range 04/11/2020 WBC Latest Ref Range: 4.0 - 9.5 x10(3)/mcL 13.2 (H) RBC Latest Ref Range: 4.00 - 5.21 x10(6)/mcL 3.22 (L) Hemoglobin Latest Ref Range: 11.7 - 15.5 gm/dL 9.7 (L) Hematocrit Latest Ref Range: 35.7 - 45.8 % 29.4 (L) MCV Latest Ref Range: 82.6 - 94.4 fL 91.3 MCH Latest Ref Range: 27.1 - 32.0 pg 30.1 MCHC Latest Ref Range: 31.7 - 35.0 gm/dL 33.0 RDWSD Latest Ref Range: 37.0 - 46.0 fL 44.1 RDWCV Latest Ref Range: 11.5 - 14.1 % 13.2 Platelets Latest Ref Range: 145 - 357 x10(3)/mcL 371 (H) MPV Latest Ref Range: 7.6 - 12.9 fL 10.1 nRBC % Auto Latest Units: % 0.0 nRBC Abs Auto Latest Ref Range: 0.000 - 0.000 x10(3)/mcL 0.000 Neutr Abs (ANC) Latest Ref Range: 1 - 6 x10(3)/mcL 9.98 (H) Neutrophils % Latest Units: % 75.6 Immature Gran % Latest Units: % 2.30 Lymphocytes % Latest Units: % 9.9 Monocytes % Latest Units: % 7.6 Eosinophils % Latest Units: % 3.9 Basophils % Latest Units: % 0.7 Nory Gran Abs Latest Ref Range: 0.00 - 0.04 x10(3)/mcL 0.31 (H) Lymphocytes Abs Latest Ref Range: 0.9 - 3.2 x10(3)/mcL 1.3 Monocyte Abs Latest Ref Range: 0.3 - 0.9 x10(3)/mcL 1.0 (H) Eosinophils Abs Latest Ref Range: 0.0 - 0.4 x10(3)/mcL 0.5 (H) Basophils Abs Latest Ref Range: 0.0 - 0.1 x10(3)/mcL 0.1 Sodium Latest Ref Range: 135 - 145 mmol/L 130 (L) Potassium Latest Ref Range: 3.5 - 5.0 mmol/L 4.3 Chloride Latest Ref Range: 98 - 107 mmol/L 99 CO2 Latest Ref Range: 22 - 31 mmol/L 25 Anion Gap Latest Ref Range: 5 - 15 mmol/L 6 BUN Latest Ref Range: 8 - 18 mg/dL 15 Creatinine Latest Ref Range: 0.70 - 1.20 mg/dL 0.34 (L) Estimated GFR Latest Ref Range: >=60 mL/min/1.73 m?? 109 Calcium Latest Ref Range: 8.5 - 10.5 mg/dL 7.7 (L) Magnesium Latest Ref Range: 0.69 - 1.07 mmol/L 0.69 Phosphorus Latest Ref Range: 2.5 - 4.5 mg/dL 3.4 Glucose Lvl Latest Ref Range: 65 - 199 mg/dL 165 I reviewed images from her Jan 2020 DEXA, showing stable osteopenia. Assessment/Rec: 74 yo diagnosed November 2019 with a 2nd contralateral breast cancer in her left breast, the first breast cancer (on R) at age 55. She is s/p left mastectomy with path showing an intermediate-grade, 15mm tumor. Tumor cells were positive for ER, negative for SC. HER2 without amplification. There was no angiolymphatic invasion and 2 sentinel nodes were negative. pT1c pN0 OncotypeDx Recurrence Score = 23, which as per T[employer]or[employer] trial does not warrant adjuvant chemo. 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 Prior R breast invasive lobular ca in 2000 at age 55. Two of 9 nodes were positive. ER-pos/SC-neg. Received AC/Taxol. Then took tamoxifen for 5 yrs, then transitioned to letrazole, which she did not tolerate d/t aches and pains in joints. Also tried exemestane but had same side effects after 4 months. For this left breast cancer, I recommended adjuvant endocrine therapy, ideally with an aromatase inhibitor. Noting that she did not tolerate letrazole (or exemestane) in the past, we'll try anastrazole. Reviewed the side effects/risks, going over the data from anastrazole's placebo-controlled trial. In this regard, we'll get an updated DEXA scan soon. She started anastrazole mid Jan and remains on this. DEXA scan shows stable osteopenia. We also discussed her genetic test result. 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 Reviewed it's possible contribution to her having had breast cancer. She has no biological children. All questions. Assuming no issues with DEXA, and she tolerates the anastrazole, we'll see her back in 6 months. 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
--- OUTSIDE RECORDS SUMMARY | 2023-11-02 02:28 | XMS_ITS | Encounter Summary ---
Author Organization [facility] [place] [address] Care Team Providers Care Education Administrative Assistant Name Role Phone Zeny James APRN Primary Care Provider Encounter Details Date Type Department Care Team (Late st Contact Info) Description 10/05/2020 Orders [place] [address] Regino Carolina MD [facility] [place] [address] Social History Tobacco Use Types Packs/Day Years Used Date Smoking Tobacco: Never Smokeless Tobacco: Never Alcohol Use Standard Drinks/Week Comments Not Currently 0 (1 standard drink = 0.6 oz pur e alcohol) Sex and Gender Information Value Date Recorded Sex Assigned at Not on file Gender Identity Not on file Sexual Orientation Not on file documented as of this encounter Miscellaneous Notes * Addendum Note - Lakeisha Lord RN - 10/05/2020 10:42 AM EDTAddended by: LAKEISHA LORD on: 10/06/2020 03:33 PM Modules accepted: Orders documented in this encounter Plan of Treatment Upcoming Encounters Date Type Department Care Team (Late st Contact Info) Description 11/02/2023 1:00 PM EDT Office Visit Hematology/Oncology at [address] [phone] Mary Nails APRN [address] [place] [address] DR MEDICAL ONCOLOGY [place], [place] [id number] 11/02/2023 1:30 PM EDT Infusion Hematology Oncology at [address] [phone] documented as of this encounter Visit Diagnoses Not on filedocumented in this encounter Care Teams Education Administrative Assistant Relationship Specialty Start Date End Date Zeny James APRN [address] [place], [place] [address] PCP - General Family Medicine 09/23/19 documented as of this encounter
--- OUTSIDE RECORDS SUMMARY | 2023-11-02 02:28 | XMS_ITS | Encounter Summary ---
Author Organization [facility] [place] [address] Care Team Providers Care Food Service Attendant Name Role Phone Zeny James APRN Primary Care Provider [phone] Encounter Details Date Type Department Care Team (Late st Contact Info) Description 09/07/2020 Telephone [place]ology [place] [phone] Social History Tobacco Use [...] Telephone Encounter - Aurelia Negrete RD - 09/07/2020 12:15 PM EDT Received a call from Linda -- she will need a new prescription for Creon as she is using 3 with meals and 1 with snacks now. Her out of pocket cost is now 1000.00 for most recent prescription. She does not feel she would qualify for patient assistance. (previous out of pocket cost were 830.00 and 900.00) . Her weight is stable. Does continue to have a fair amount of fatigue. Remains on 2000 IU Vitamin D and supplements with Vitamin E. I will send request to Dr Carolina and Gen Surg triage RNs. Plan to see Linda next month. Confirmed that post op nutrition labs were ordered for her. documented in this encounter Plan of Treatment Upcoming Encounters Date Type Department Care Team (Late st Contact Info) Description 11/02/2023 1:00 PM EDT Office Visit Hematology/Oncology at [address] [phone] Mary Nails APRN [address] [place] [address] MEDICAL ONCOLOGY [place], [place] [id number] 11/02/2023 1:30 PM EDT Infusion Hematology Oncology at [address] [phone] documented as of this encounter Visit Diagnoses Not on filedocumented in this encounter Care Teams Food Service Attendant Relationship Specialty Start Date End Date Zeny James APRN [address] [place] [address] [address] [place] [address] PCP - General Family Medicine 09/23/19 documented as of this encounter
--- OUTSIDE RECORDS SUMMARY | 2023-11-02 02:28 | XMS_ITS | Encounter Summary ---
Author Organization [facility] [place] [address] Care Team Providers Care Personal Property Assessor Name Role Phone Zeny James APRN Primary Care Provider [phone] Reason for Referral * Diagnostic Test (Routine) - Closed Specialty Diagnoses / Procedures Referred By Nir potts Referred To Contact Radiology Diagnoses IPMN (intraductal papillary mucinous neoplasm) Procedures CT Abdomen w Contrast Regino Carolina MD [facility] [place] [address] [facility] [place] [address] Referral ID Status Reason Start Date Expiration Date V isits Requested Visits Authorized [id number] Closed Specialty Service Requested 12/01/2020 06/03/2022 1 1 Reason for Visit * Reason Comments Follow-up Encounter Details Date Type Department Care Team (Late st Contact Info) Description 12/01/2020 3:00 PM EDT Office [place] [address] Regino Carolina MD [facility] [place] [address] IPMN (intraductal papillary mucinous neoplasm) [...] Sign Reading Time Taken Comments Blood Pressure 185/88 12/01/2020 2:52 PM EDT Pulse 72 12/01/2020 2:52 PM EDT Temperature - - Respiratory Rate 16 12/01/2020 2:52 PM EDT Oxygen Saturation 100% 12/01/2020 2:52 PM EDT Inhaled Oxygen Concentration - - Weight 51.8 kg (114 lb 1.6 oz) 12/01/2020 2:52 P M EDT Height - - Body Mass Index 20.86 09/28/2020 12:52 PM EDT documented in this encounter Progress Notes * Regino Carolina MD - 12/01/2020 3:00 PM EDT Surgical Oncology Office Note Date: 12/01/2020 Primary physician: Zeny James APRN Referring physician: Migue Urrutia MD Reason for evaluation: History of whipple on 03/23/2020 for 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 Interval History: Ms. Serrano is now a 75 year woman from [place], [place]. She presented to [facility] ED on 2019 with epigastric abdominal pain x1 day and anorexia symptoms. Blood work showed a normal white blood cell count of 11.7, hemoglobin 14.7, platelet 311. LFTs were all normal-albumin 4.2, total bilirubin 0.8, alkaline phosphatase 90, AST 29, [...] of pancreatic duct/cyst fluid cytopathology per Acc# [id number] showed neoplastic Cells Present. Abundant macrophages, mixed leukocytes present and a single group of bland-appearing columnar cells. Cell block was examined. Note: The fluid CEA level is consistent with neoplastic process. 11/25/2019 surgical oncology consult. Maricruz was seen for surgery consultation. She was by herself. She described the episode that brought her to the ED at [facility] as the first time she is [...] with for her stage I ILC ER+, WV-, HER2-- IDC of the left breast. She [...] HCTZ, AXR unremarkable, hyponatremia (130) POD 9 04/01: continues to have nausea with a few episodes of larger volume emesis, CT A/P revealed stricture with SBO, NGT placed with symptomatic improvement POD 10 04/02: EGD demonstrating multiple ulcerations near GJ anastamosis POD 11 04/03: Abx started for PNA tx POD 12 04/04: ROEL POD 04/05: ROEL POD 04/06: NGT removed, tolerating sips and chips POD 15 04/07: No changes, tolerating sips and chips POD 16 04/08: ROEL POD 04/09: ROEL. Advanced to FLD. Awaiting C.diff testing POD 04/10: +BM and flatus, c.diff negative, advanced to FLD for comfort only and tolerated well,started on carvedilol per medicine recs for SBP<150 POD 04/11: PICC rewired, ROEL. discharged Complications: #Delayed gastric emptying secondary to marginal ulcer at the GJ anastomosis requiring TPN. Pathology: 03/23/2020 [facility]# [id number] Surgical Pathology DIAGNOSIS A - Portal vein [...] for diagnostic abnormality. Objective: Vitals: Blood pressure 185/88, pulse 72, resp. rate 16, weight 51.8 kg (114 lb 1.6 oz), SpO2 100 %. 12/01/2020 she weighed 114 pounds. 09/30/2019 she weighed 113 pounds. 04/21/2019 she weighed 118 pounds. 01/28/2020 she weighed 123 pounds. 12/18/2019 she weighed 120 pounds. General: Maricruz looks great. She is by herself. Abdomen: Soft, non distended and nontender. The laparoscopic and robotic port scars with no hernias. Extremities: No peripheral edema and symmetric bilaterally. Assessment and plans: Maricruz was seen today in the surgery clinic after undergoing a CT abdomen and pelvis as part of her annual surveillance of the remnant pancreas to monitor for IPMN cyst recurrence. I looked at today's CT images and the pancreas X looks really good. Prior to the Whipple surgery her pancreatic duct was markedly dilated measuring over 10 mm in diameter and today CT shows the pancreatic duct to be basically normal and barely visible on CT. There are no parenchymal cyst to suggest sidebranch I PMNs. Overall very reassuring CT scan. We discussed a plan to repeat another CT in 1 years time-I ordered it to occur in December 2021 to hopefully coincide be able to be coordinated with her appoint with Dr. Dueñas-who follows her for the breast cancer. I saw her today with Aurelia and we discussed how she likely should stay on the pancreatic enzymesas when we saw her back in September Isabel increased her from 2 capsules with meals to 3 capsules withmeals and she has had less diarrhea and overall feels better. Isabel will put in orders for blood work to be done as external-up at [facility]-in March which would be her normal [facility] date butwe will switch the surveillance dates to December annually going forward. CT ordered. Jennifer Carolina MD 12/01/2020 3:23 PM This note was created using [employer] ([employer]) voice recognition software. documented in this encounter Plan of Treatment Upcoming Encounters Date Type Department Care Team (Late st Contact Info) Description 11/02/2023 1:00 PM EDT Office Visit Hematology/Oncology at [address] [phone] Mary Nails APRN [address] [place] [address] DR MEDICAL ONCOLOGY [place], [place] [phone] 11/02/2023 1:30 PM EDT Infusion Hematology Oncology at [address] [phone] documented as of this encounter Results * [...] questions please contact the health health care coach that requested your imaging first. ? Electronically signed by: Mike Saundesr MD, [facility] ([phone]), at 12/28/2021 3:15 PM Narrative 12/28/2021 3:15 [...] have questions please contactthe health health care coach that requested your imaging first. Electronically signed by: Mike Saunders MD, [facility]([phone]), at 12/28/2021 3:15 PM Regino Carolina MD IMG CT ORDERABLES documented in this encounter Visit Diagnoses Diagnosis IPMN (intraductal papillary mucinous neoplasm) Neoplasm of unspecified nature of digestive system IPMN (intraductal papillary mucinous neoplasm) Neoplasm of unspecified nature of digestive system documented in this encounter Care Teams Personal Property Assessor Relationship Specialty Start Date End Date Zeny James APRN [address] [place] [address] PCP - General Family Medicine 09/23/19 documented as of this encounter
--- OUTSIDE RECORDS SUMMARY | 2023-11-02 02:28 | XMS_ITS | Encounter Summary ---
[place] [address] Care Team Providers Care Tennis Net Maker Name Role Phone Zeny James JESUS ALBERTO Primary Care Provider Encounter Details Date Type Department Care Team (Latest Contact Info) Description 09/28/2020 12:00 PM EDT Laboratory Appointment Lab [address], [place] [phone] IPMN (intraductal papillary mucinous neoplasm); Pancreatic insufficiency; Other iron deficiency anemia Social [...] 1:00 PM EDT Office Visit Hematology/Oncology at [address] [phone] Mary Nails CLINICAL LABORATORY MEDICAL DIRECTOR [address] [place] [address] MEDICAL ONCOLOGY [place], [place] [phone] 11/02/2023 1:30 PM EDT Infusion Hematology Oncology at [address] [phone] documented as of this encounter Procedures Procedure Name Priority Date/Time Associated Diagnosis Comments HEMOGRAM Routine 09/28/2020 11:52 AM EDT IPMN (intraductal papillary mucinous neoplasm) DIFFERENTIAL, AUTOMATED Routine 09/28/2020 11:52 AM EDT IPMN (intraductal papillary mucinous neoplasm) HC IRON BINDING CAPACITY STAT 09/28/2020 11:52 AM EDT Other iron deficiency anemia HC PCH VITAMIN A STAT 09/28/2020 11:5 2 AM EDT Pancreatic insufficiency HC VITAMIN D TOTAL-25 HYDROXY STAT 09/28/2020 11:52 AM EDT Pancreatic insufficiency HC CBC,PLT & AUTO DIFF Routine 09/28/2020 11:52 AM EDT IPMN (intraductal papillary mucinous neoplasm) HC PCH VITAMIN E STAT 09/28/2020 11:5 2 AM EDT Pancreatic insufficiency HC VENIPUNCTURE Routine 09/28/2020 11:52 AM EDT IPMN (intraductal papillary mucinous neoplasm) HEMOGLOBIN A1C Routine 09/28/2020 11:52 AM EDT HC FERRITIN, SERUM STAT 09/28/2020 11 :52 AM EDT Other iron deficiency anemia HC VITAMIN B12 SERUM STAT 09/28/2020 11:52 AM EDT Pancreatic insufficiency COMPREHENSIVE METABOLIC PANEL (NON-FASTING) Routine 09/28/2020 11:52 AM EDT IPMN (intraductal papillary mucinous neoplasm) documented in this encounter Results * (ABNORMAL) Hemoglobin A1c (09/28/2020 11:52 AM EDT) Hemoglobin A1C 6.1(H) 4.3 - 5.6 % [facility] Comment: Reference Range: 4.3 - 5.6% 5.7 - 6.4% - Increased Risk of Developing Diabetes Mellitus >= 6.5% - Consistent with diagnosis of Diabetes Mellitus In the absence of hyperglycemia (i.e. plasma glucose > 200 mg/dL) or classic symptoms of hyperglycemia a repeat measurement of HbA1c should be performed on a separate sample to confirm the diagnosis. Diagnosis and Classification of Diabetes Mellitus, Diabetes Care 2013; 36: Suppl. 1, S67-06 Est Avg Gluc See note mg/dL [facility] Comment: Estimated Average Glucose not appropriate for patients over 70 years of age. eAG equivalents for HbA1c percentages: HbA1c(%) ?eAG(mg/dL) 6.0 ?126 6.5 ?140 7.0 ?154 7.5 ?169 8.0 ?183 8.5 ?197 9.0 ?212 9.5 ?226 10.0 ? 240 Limitations: The eAG calculation has not been validated on women, individuals below 18 years old and above 70 years old, and individuals with hemoglobinopathies. Additional resources are available on the ADA website. Darrick HARRIS, Constantine J, Doug R, et al. ??Translating the A1C assay into estimated average glucose values. ??Diabetes Care 2008:31(8):1937-8284. Blood Venous Draw / Unknown 09/28/2020 11:52 AM EDT 09/30/2020 8:51 AM EDT Narrative Resulting Agency Comment Spec In Lab Zeny Adjovu CLINICAL LABORATORY MEDICAL DIRECTOR CHEMISTRY ORDERABLE S [facility] [place] [address] * Differential, Automated (09/28/2020 11:52 AM EDT) Neutrophils % 62.6 % [facility] Neutr Abs (ANC) 4.45 1.70 - 6.10 x10(3)/[facility] Lymphocytes % 22.9 % [facility] Lymphocytes Abs 1.6 0.9 - 3.2 x10(3)/[facility] Monocytes % 8.3 % [facility] Monocyte Abs 0.6 0.3 - 0.9 x10(3)/[facility] Eosinophils % 5.1 % [facility] Eosinophils Abs 0.4 0.0 - 0.4 x10(3)/[facility] Basophils % 0.8 % [facility] Basophils Abs 0.1 0.0 - 0.1 x10(3)/[facility] Immature Gran % 0.30 % [facility] Comment: Immature granulocytes(IG's)percentage and absolute count will include metamyelocytes, myelocytes, and promyelocytes. Blood smears from CBCs yielding IG's will be scanned manually for concordance. If this scan disagrees with the automated IG or if promyelocytes are noted, a manual differential will be performed. Nory Gran Abs 0.02 0.00 - 0.04 x10(3)/[facility] Blood 09/28/2020 11:5 2 AM EDT 09/28/2020 12:17 PM EDT Narrative Resulting Agency Comment Spec In Lab Anjelica Jordan APRN HEMATOLOGY ORDER MAGAN [facility] [place] [address] * (ABNORMAL) Hemogram (09/28/2020 11:52 AM EDT) Pathologist [facility] WBC 7.1 4.0 - 9.5 x10(3)/[facility] RBC 4.25 4.00 - 5.21 x10(6)/[facility] Hemoglobin 12.1 11.7 - 15.5 gm/dL [facility] Hematocrit 37.6 35.7 - 45.8 % [facility] MCV 88.5 82.6 - 94.4 fL [facility] MCH 28.5 27.1 - 32.0 pg [facility] MCHC 32.2 31.7 - 35.0 gm/dL [facility] Platelets 300 145 - 357 x10(3)/[facility] LABORATORY RDWSD 45.8 37.0 - 46.0 [facility] LABORATORY RDWCV 14.2(H) 11.5 - 14.1 % [facility] MPV 10.7 7.6 - 12.9 fL [facility] nRBC % Auto 0.0 % [facility] nRBC Abs Auto 0.000 0.000 - 0.000 x10(3)/[facility] Blood 09/28/2020 11:5 2 AM EDT 09/28/2020 12:17 PM EDT Narrative Resulting Agency Comment Spec In Lab Anjelica Jordan APRN HEMATOLOGY ORDER MAGAN [facility] [place] [address] * (ABNORMAL) Ferritin (09/28/2020 11:52 AM EDT) [facility] Signature Ferritin 19(L) 30 - 400 ng/mL [facility] Comment: Pediatric reference ranges not verified at [facility], interpret with caution. Reference ranges for females greater than 50 years of age approach values for men, i.e., 30-400 ng/mL. Blood 09/28/2020 11:5 2 AM EDT 09/28/2020 12:17 PM EDT Narrative Resulting Agency Comment Spec In Lab Regino Carolina MD CHEMISTRY ORDERABL ES Performing Organization Address City/[facility]/ZIP Co de Phone Number [facility] [place] [address] * (ABNORMAL) Iron and TIBC (09/28/2020 11:52 AM EDT) Iron 63 30 - 150 mcg/dL [facility] TIBC 342 250 - 450 mcg/dL [facility] Iron Saturation 18(L) 20 - 50 % [facility] Blood 09/28/2020 11:5 2 AM EDT 09/28/2020 12:17 PM EDT Narrative Resulting Agency Comment Spec In Lab Regino Carolina MD CHEMISTRY ORDERABL ES Performing Organization Address [facility] de Phone Number [facility] [place] [address] * (ABNORMAL) Vitamin A (09/28/2020 11:52 AM EDT) Vitamin A 31.9(L) 32.5 - 78.0 mcg/dL [facility] Comment: ADDITIONAL INFORMATION This test was developed and its performance characteristics determined by [facility] in a manner consistent with CLIA requirements. This test has not been cleared or approved by the U.S. Food and Drug Administration. Test Performed by: [facility] - [address] [address] Store Receiving Specialist: Denzel Angel M.D. Ph.D.; CLIA# [id number] Blood 09/28/2020 11:5 2 AM EDT 09/28/2020 4:35 PM EDT Narrative Resulting Agency Comment Spec In Lab Regino Carolina MD CHEMISTRY ORDERABL ES Performing Organization Address City/[facility]/ZIP Co de Phone Number [facility] [place] [address] * Vitamin B12 (09/28/2020 11:52 AM EDT) Vitamin B-12 958 232 - 1,245 pg/mL [facility] Blood 09/28/2020 11:5 2 AM EDT 09/28/2020 12:17 PM EDT Narrative Resulting Agency Comment Spec In Lab Regino Carolina MD CHEMISTRY ORDERABL ES Performing Organization Address [facility]/ZIP Co de Phone Number [facility] [place] [address] * Vitamin D, 25-Hydroxy (09/28/2020 11:52 AM EDT) 25-OH Vit D Total 36 21 - 100 ng/mL [facility] 25-OH Vit D Interp Sufficient [facility] Blood 09/28/2020 11:5 2 AM EDT 09/28/2020 12:17 PM EDT Narrative Resulting Agency Comment Spec In Lab Regino Carolina MD CHEMISTRY ORDERABL ES Performing Organization Address [facility]/ZIP Co de Phone Number [facility] [place] [address] * Vitamin E (09/28/2020 11:52 AM EDT) Vitamin E 14.1 5.5 - 17.0 mg/L [facility] Comment: ADDITIONAL INFORMATION This test was developed and its performance characteristics determined by [facility] in a manner consistent with CLIA requirements. This test has not been cleared or approved by the U.S. Food and Drug Administration. Test Performed by: [facility] - [address] [address] Store Receiving Specialist: Denzel Angel M.D. Ph.D.; CLIA# [id number] Blood 09/28/2020 11:5 2 AM EDT 09/28/2020 1:35 PM EDT Narrative Resulting Agency Comment Spec In Lab Regino Carolina MD CHEMISTRY ORDERABL ES [facility] [place] [address] * (ABNORMAL) Comprehensive metabolic panel (non-fasting) (09/28/2020 11:52 AM EDT) Glucose Lvl 127 65 - 199 mg/dL [facility] Comment:Diabetes: >=200 mg/d L plus symptoms BUN 16 8 - 18 mg/dL [facility] Creatinine 0.65(L) 0.70 - 1.20 mg/dL [facility] Sodium 136 135 - 145 mmol/L [facility] Potassium 4.0 3.5 - 5.0 mmol/L [facility] Comment: Please note: ??Patients with WBC >100,000 may have falsely elevated Potassium levels. ??For accurate Potassium quantification in these patients send serum separator tube (gold top) for subsequent determinations. ??Contact the Clinical Chemistry Laboratory if there are any questions. Chloride 101 98 - 107 mmol/L [facility] CO2 25 22 - 31 mmol/L [facility] Anion Gap 10 5 - 15 mmol/L [facility] Calcium 9.0 8.5 - 10.5 mg/dL [facility] Total Protein 6.5 6.1 - 8.0 gm/dL [facility] Albumin 4.1 3.2 - 5.2 gm/dL [facility] AST 28 0 - 30 unit/L [facility] ALT 27 0 - 30 unit/L [facility] Alk Phos 148(H) 35 - 105 unit/L [facility] Total Bilirubin 0.3 0.2 - 1.3 mg/dL [facility] Estimated GFR 88 >=60 mL/min/1. 73 m?? [facility] Comment: This patient? s estimated glomerular filtration rate (eGFR) is between 88 mL/min/1.73 m2 (patients with less muscle mass) and 102 mL/min/1.73 m2 (patients with more muscle mass) as determined by the CKD-EPI equation. Assessment of eGFR is not appropriate when creatinine concentrations are rapidly changing. For clinical decisions where creatinine clearance will affect therapy, a 24-hour urine creatinine clearance may be advised. Assignment of CKD stage 1 - 5 for patients with an eGFR near the transition point between stages may be based on clinical assessment of muscle mass and symptoms in addition to eGFR. Blood 09/28/2020 11:5 2 AM EDT 09/28/2020 12:17 PM EDT Narrative Resulting Agency Comment Spec In Lab Anjelica Jordan CLINICAL LABORATORY MEDICAL DIRECTOR CHEMISTRY ORDERA BLES Performing Organization Address [facility] Co de Phone Number [facility] [place] [address] * Prealbumin (09/28/2020 11:52 AM EDT) Prealbumin 21 20 - 40 mg/dL [facility] Comment: Prealbumin levels are generally lower in the pediatric population; adult concentrations are usually attained near puberty. Blood 09/28/2020 11:5 2 AM EDT 09/28/2020 12:17 PM EDT Narrative Resulting Agency Comment Spec In Lab Anjelica Jordan CLINICAL LABORATORY MEDICAL DIRECTOR CHEMISTRY ORDERA BLES Performing Organization Address City/[facility]/ZIP Co de Phone Number [facility] [place] [address] documented in this encounter Visit Diagnoses Diagnosis IPMN (intraductal papillary mucinous neoplasm) Neoplasm of unspecified nature of digestive system Pancreatic insufficiency Other specified disease of pancreas Other iron deficiency anemia documented in this encounter Care Teams Tennis Net Maker Relationship Specialty Start Date End Date Zeny James APRN [address] [place] [address] [address] [place] [address] PCP - General Family Medicine 09/23/19 documented as of this encounter
--- OUTSIDE RECORDS SUMMARY | 2023-11-02 02:28 | XMS_ITS | Encounter Summary ---
Author Organization [facility] [place] [address] Care Team Providers Care Bar Tender Name Role Phone Zeny James APRN Primary Care Provider Encounter Details Date Type Department Care Team (Late st Contact Info) Description 07/13/2020 10:30 AM EDT Telephone [place] [phone] Social History Tobacco Use [...] Sign Reading Time Taken Comments Blood Pressure - - Pulse - - Temperature - - Respiratory Rate - - Oxygen Saturation - - Inhaled Oxygen Concentration - - Weight 50.8 kg (112 lb) 07/13/2020 10:00 AM EDT Height - - Body Mass Index 21.09 07/06/2020 9:45 AM EDT documented in this encounter Miscellaneous Notes * Telephone Encounter - Aurelia Negrete RD - 07/13/2020 10:52 AM EDT [facility] Nutrition Assessment Progress Note Linda Serrano Diagnosis: Linda is 74 years with newly diagnosed IPMN, s/p Whipple Resection ?? Operations/Major Procedures: Operations: ??03/23/2020 ??Surgeon(s) and Role: ?* Regino Carolina MD - Primary: ?Procedure(s): ROBOTIC PANCREATECTOMY,WHIPPLE, PARTIAL GASTRECTOMY W/ PANCREATOJEJUNOSTOMY MODIFIER ROBOT,MALLORYI XI @OMENTAL FLAP, INTRA-ABDOMINAL (WRVU 6.54) Assessment: Nutrition Screen 07/13/2020 Reason for assessment Symptom management Total MST Score - f/u on recommendation to increase Creon 24 from 2 with meals to 3 with meals due to occas loose stools, light colored stools Functional Status 07/13/2020 Appetite Similar compared to usual intake low over the weekend following her 2nd vaccine for COVID Pancreatic Enzymes 07/13/2020 Are you taking pancreatic enzymes? Yes Dose of enzyme Creon 24,000 3 with meals and 1 with snacks Anthropometric Assessment Information 07/13/2020 Height - Weight 1792 [place] Body Weight (IBW) (kg) - BMI (Calculated) - Weight fluctuates between 112-114 pounds, stable. Intervention: Recommend continue with current PERT regimen/3 with meals/1 with snacks Will ensure post op nutrition labs are entered for Lorri visit/she is hopeful that this would include labs to assess kidney and liver function Follow Up: We will see in September for 6 mos post op visit. Note: Please see Hematology/Oncology malnutrition flowsheet for complete RD assessment/documentation documented in this encounter Plan of Treatment Upcoming Encounters Date Type Department Care Team (Late st Contact Info) Description 11/02/2023 1:00 PM EDT Office Visit Hematology/Oncology at [address] [phone] Mary Nails APRN [address] [place] [address] DR MEDICAL ONCOLOGY [place], [place] [phone] 11/02/2023 1:30 PM EDT Infusion Hematology Oncology at [address] [phone] documented as of this encounter Visit Diagnoses Not on filedocumented in this encounter Care Teams Bar Tender Relationship Specialty Start Date End Date Zeny James APRN [address] [place] [address] PCP - General Family Medicine 09/23/19 documented as of this encounter
--- OUTSIDE RECORDS SUMMARY | 2023-11-02 02:28 | XMS_ITS | Encounter Summary ---
Author Organization [facility] [place] [address] Care Team Providers Care Junior Net Developer Name Role Phone Zeny James APRN Primary Care Provider Reason for Referral * Diagnostic Test (Routine) - Closed Specialty Diagnoses / Procedures Referred By Contac t Referred To Contact Radiology Diagnoses IPMN (intraductal papillary mucinous neoplasm) Procedures CT Abdomen & Pelvis w Contrast CT Abdomen w Contrast Regino Carolina MD [facility] [place] [address] [facility] [place] [address] Referral ID Status Reason Start Date Expiration Date V isits Requested Visits Authorized [id number] Closed Specialty Service Requested 09/28/2020 03/30/2022 1 1 Reason for Visit * Diagnostic Test (Routine) - Closed Specialty Diagnoses / Procedures Referred By Contac t Referred To Contact Radiology Diagnoses IPMN (intraductal papillary mucinous neoplasm) Procedures CT Abdomen & Pelvis w Contrast CT Abdomen w Contrast Regino Carolina MD [facility] [place] [address] [facility] [place] [address] Referral ID Status Reason Start Date Expiration Date V isits Requested Visits Authorized [id number] Closed Specialty Service Requested 09/28/2020 03/30/2022 1 1 Encounter Details Date Type Department Care Team (Late st Contact Info) Description 12/01/2020 11:34 AM EDT - 12/01/2020 11:59 PM EDT Hospital [place] [address] Regino Carolina MD [facility] [place] [address] IPMN (intraductal papillary mucinous neoplasm) Discharge Disposition: [...] Sig Dispensed Refills Start Date End Date omeprazole (PriLOSEC) 20 mg Capsule, Delayed Release(E.C.) Take 20 mg by mouth daily. Blood-Glucose Meter Misc 1 Application by [employer].(Non-Drug; Combo Route) route 3 times daily (before [...] Capsule Take 4,000 Units by mouth daily. multivit,iron,minera ls/lutein (CENTRUM SILVER ULTRA WOMEN'S ORAL) Take 1 tablet by mouth daily. magnesium oxide 400 mg magnesium Capsule Take 1 capsule by mouth daily. fish oil-omega-3 fatty acids 1,000 mg Capsule Take 1 g by mouth daily. vitamin A (Aquasol) 10,000 unit Capsule Take 1 capsule by mouth 3 times daily. 90 capsule 1 10/07/2020 04/29/2021 ygdkxj-idmvwyqy-azap ase DR (Creon) 24,000-76,000 -120,000 unit Capsule, Delayed Release(E.C.) Take 3 cap po with meals TID, take 1 cap po with snacks BID (11 cap/day) 990 capsule 3 09/07/2020 09/07/2021 carvediloL (Coreg) 3.125 mg Tablet Take 1 tablet by mouth 2 times daily (with meals). 60 tablet 3 04/11/2020 04/29/2021 senna-docusate (Pericolace) 8.6-50 mg Tablet Take 2 tablets by mouth 2 times daily. 60 tablet 11 04/11/2020 04/29/2021 CALCIUM CARBONATE-VITAMIN D3 ORAL Take 1 tablet by mouth daily. 01/19/2023 fluticasone propionate (FLONASE) 50 mcg/actuation [place], Suspension 1 spray by Each Nare route daily as needed. 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 Start mid January 2020. 90 tablet 3 01/09/2020 12/08/2020 documented as of this encounter Plan of Treatment Upcoming Encounters Date Type Department Care Team (Late st Contact Info) Description 11/02/2023 1:00 PM EDT Office Visit Hematology/Oncology at [address] [phone] Mary Nails APRN [address] [place] [address] MEDICAL ONCOLOGY [place], [place] [id number] 11/02/2023 1:30 PM EDT Infusion Hematology Oncology at [address] [phone] documented as of this encounter Procedures Procedure Name Priority Date/Time Associated Diagnosis Comments CT ABDOMEN AND PELVIS W CONTRAST Routine 12/01/2020 2:19 PM EDT IPMN (intraductal papillary mucinous neoplasm) documented in this encounter Results * CT Abdomen & Pelvis w Contrast (12/01/2020 2:19 PM EDT) Anatomical Region Laterality Modality Abdomen, Pelvis Computed Tomogra phy 12/01/2020 2:37 PM EDT Impressions 12/01/2020 3:[address] appearance of the abdomen and pelvis. No findings to explain patient's symptoms. No evidence of recurrence of malignancy or metastatic disease. I have personally reviewed the image(s) and the resident's interpretation and agree with the findings, Raimundo Mccurdy MD at 12/01/2020 3:41 PM Thank you for letting us participate in the care of this patient. ??If you are a health care provider and have any questions regarding this report, please contact the number below. ??For patients who have questions please contact the health child care counselor that requested your imaging first. ? Electronically signed by: Raimundo Mccurdy MD, [facility] ([phone]), at 12/01/2020 3:41 PM Narrative 12/01/2020 3:41 PM EDT EXAMINATION: CT ABDOMEN AND PELVIS W CONTRAST CLINICAL HISTORY: Abdominal pain, acute, nonlocalized - Include more detail below History of IPMN s/p whipple 03/23/2020- evaluate pancreatic duct in remnant for recurrent IPMN, worrsome features? TECHNIQUE: Helical CT of the abdomen and pelvis was performed following the intravenous administration of contrast. Administered 66.0 ml of OMNIPAQUE 350.00 mg/ml. Oral contrast was administered. COMPARISON: CT abdomen pelvis 04/01/2020, 03/26/2020, and 01/28/2020. FINDINGS: Lower chest: Normal. Liver: Normal size and attenuation. There is a tiny unchanged benign hepatic cyst or biliary hematoma in the dome of the liver. No concerning liver lesion. Bile ducts: Nondilated. There is some scattered pneumobilia as seen previously. Gallbladder: Surgically absent. Pancreas: The remaining pancreas is unchanged. There is no pancreatic duct dilation. There are tiny scattered calcifications within the body. Spleen: Normal. Adrenals: Normal. Kidneys: There is no hydronephrosis. The kidneys demonstrate normal patterns of enhancement. There is no concerning renal lesion. Scattered benign-appearing renal cysts Urinary Bladder: Normal. Vasculature: No aneurysm. Lymph Nodes: No enlarged lymph nodes. Bowel: Nondilated, no wall thickening. The patient is status post Whipple procedure. There is diverticulosis coli. A normal-appearing appendix is identified. Peritoneum and mesentery: No ascites, free air, or loculated fluid collection. No mesenteric inflammation. Abdominal wall: Normal. Reproductive organs: There is a multifibroid uterus. Osseous structures: No suspicious lesions. Unchanged wedge compression deformity of T10. Procedure Note Raimundo Mccurdy MD - 12/01/2020 EXAMINATION: CT ABDOMEN AND PELVIS W CONTRAST CLINICAL HISTORY: Abdominal pain, acute, nonlocalized - Include moredetail below History of IPMN s/p whipple 03/23/2020- evaluate pancreatic duct in remnantfor recurrent IPMN, worrsome features? TECHNIQUE: Helical CT of the abdomen and pelvis was performed followingthe intravenous administration of contrast. Administered 66.0 ml of [id number] mg/ml. Oral contrast was administered. COMPARISON: CT abdomen pelvis 04/01/2020, 03/26/2020, and 01/28/2020. FINDINGS: Lower chest: Normal. Liver: Normal size and attenuation. There is a tiny unchanged benignhepatic cyst or biliary hematoma in the dome of the liver. No concerning liverlesion. Bile ducts: Nondilated. There is some scattered pneumobilia as seenpreviously. Gallbladder: Surgically absent. Pancreas: The remaining pancreas is unchanged. There is no pancreaticduct dilation. There are tiny scattered calcifications within the body. Spleen: Normal. Adrenals: Normal. Kidneys: There is no hydronephrosis. The kidneys demonstrate normalpatterns of enhancement. There is no concerning renal lesion. Scatteredbenign-appearing renal cysts Urinary Bladder: Normal. Vasculature: No aneurysm. Lymph Nodes: No enlarged lymph nodes. Bowel: Nondilated, no wall thickening. The patient is status postWhipple procedure. There is diverticulosis coli. A normal-appearing appendix is identified. Peritoneum and mesentery: No ascites, free air, or loculated fluidcollection. No mesenteric inflammation. Abdominal wall: Normal. Reproductive organs: There is a multifibroid uterus. Osseous structures: No suspicious lesions. Unchanged wedge compressiondeformity of T10. IMPRESSION Unchanged CT appearance of the abdomen and pelvis. No findings toexplain patient's symptoms. No evidence of recurrence of malignancy ormetastatic disease. I have personally reviewed the image(s) and the resident's interpretationand agree with the findings, Raimundo Mccurdy MD at 12/01/2020 3:41 PM Thank you for letting us participate in the care of this patient. If youare a health care provider and have any questions regarding this report,please contact the number below. For patients who have questions please contactthe health child care counselor that requested your imaging first. Regnio Carolina MD IMG CT ORDERABLES documented in this encounter Visit Diagnoses Diagnosis IPMN (intraductal papillary mucinous neoplasm) Neoplasm of unspecified nature of digestive system documented in this encounter Administered Medications Inactive Administered Medications - up to 3 most recent administrations Medication Order MAR Action Action Date Dose Rate Site iohexoL (Omnipaque) (350 mg/mL) injection solution 0-200 mL 0-200 mL, Intravenous, ONCE PRN, 1 dose, Starting on Mon12/01/20 at 1417, Until Mon12/01/20 at 1417, Per Protocol, Warning Vesicant/Irritant Medication , Radiology Contrast, Routine Given 12/01/2020 2:17 PM EDT 66 mLs iohexoL (Omnipaque) (350 mg/mL) injection solution 0-50 mL 0-50 mL, Oral, ONCE PRN, 1 dose, Starting on Mon12/01/20 at 1417, Until Mon12/01/20 at 1417, Per Protocol, Warning Vesicant/Irritant Medication , Radiology Contrast, Routine Given 12/01/2020 2:17 PM EDT 50 mLs documented in this encounter Care Teams Junior Net Developer Relationship Specialty Start Date End Date Zeny James APRN [address] [place] [address] [address] [facility] [address] [place] [address] PCP - General Family Medicine 09/23/19 documented as of this encounter
--- OUTSIDE RECORDS SUMMARY | 2023-11-02 02:28 | XMS_ITS | Encounter Summary ---
Author [facility] [place] [address] Care Team Providers Care Stud Master/Mistress Name Role Phone Zeny James APRN Primary Care Provider [phone] Encounter Details Date Type Department Care Team (Late st Contact Info) Description 12/01/2020 3:00 PM EDT Clinical Support [place] [address] IPMN (intraductal papillary mucinous [...] Progress Notes * Aurelia Negrete RD - 12/01/2020 3:00 PM EDT [facility] Dietitian Follow Up Visit ?? Linda is 74 years with newly diagnosed IPMN, s/p Whipple Resection ?? Operations/Major Procedures: Operations: ??03/23/2020 ??Surgeon(s) and Role: ?* Regino Carolina MD - Primary: ?Procedure(s): ROBOTIC PANCREATECTOMY,WHIPPLE, PARTIAL GASTRECTOMY W/ PANCREATOJEJUNOSTOMY MODIFIER ROBOTSTEPHANIE @OMENTAL FLAP, INTRA-ABDOMINAL (WRVU 6.54) I was able to see Maricruz with Dr Regino Carolina today in surg onc clinic. +AMANDA, continues with Creon 24, dosing 3 with meals and 1 with most snacks. We increased the dose atour visit with Maricruz on given persistent signs and symptoms of AMANDA. 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 Bowels: Moving bowels each day with softener/stimulant (one at night) Maintaining weight without issue--appetite is pretty good. Wt Readings from Last 3 Encounters: 12/01/20 51.8 kg (114 lb 1.6 oz) 09/28/20 51.3 kg (113 lb) 09/28/20 51.6 kg (113 lb 11.2 oz) Labs/scanned into eDH from [facility]: Vitamin A within normal limits when rechecked: 49.9 Lifts weights twice a week to include sit ups. Active within and outside her home. Plan: 1. AMANDA: recommend continue with PERT at 3 Creon 24 with meals and 1 with snacks. To optimize therapeutic effects of enzymes, dose throughout a meal. 2. I will add post Whipple nutrition labs to be drawn at [facility] in March. These same labs are recommended annually thereafter unless deficiency is detected. documented in this encounter Plan of Treatment Upcoming Encounters Date Type Department Care Team (Late st Contact Info) Description 11/02/2023 1:00 PM EDT Office Visit Hematology/Oncology at [address] [phone] Mary Nails APRN [address] [place] [address] DR MEDICAL ONCOLOGY [place], [place] [id number] 11/02/2023 1:30 PM EDT Infusion Hematology Oncology at [address] [phone] documented as of this encounter Visit Diagnoses Diagnosis IPMN (intraductal papillary mucinous neoplasm) Neoplasm of unspecified nature of digestive system documented in this encounter Care Teams Stud Master/Mistress Relationship Specialty Start Date End Date Zeny James APRN [address] [place] [address] PCP - General Family Medicine 09/23/19 documented as of this encounter
--- OUTSIDE RECORDS SUMMARY | 2023-11-02 02:28 | XMS_ITS | Encounter Summary ---
Author Organization Formerly [facility] [place] [address] Care Team Providers Care Manufacturing Sr Engineer Name Role Phone Zeny James APRN Primary Care Provider [phone] Encounter Details Date Type Department Care Team (Late st Contact Info) Description 04/14/2020 Telephone [place] [phone] Felicity King, RN Social History Tobacco Use Types Packs/Day [...] encounter Miscellaneous Notes * Telephone Encounter - Felicity King, RN - 04/14/2020 12:45 PM EST Nursing Triage - Phone Note DATE OF CALL: 04/14/2020 TIME OF CALL: 12:45 PM PATIENT DATE OF : 1945 CALLER: Pt to the general surgery clinic Learning Needs Assessment Reviewed: Yes SUBJECTIVE - Am I suppose to take Omeprazole? PERTINENT PAST MEDICAL HISTORY: [place] [facility] [place] ?? Patient Name: Linda Serrano : [id number] MR#: [id number] ?? Case Date: 03/23/2020 ?? Surgeon: Surgeon(s) and Role: * Regino Carolina MD - Primary Registered Nurse Solution Engineer: Whitney Rangel, RN ?? Preoperative diagnosis: IPMN ?? Postoperative diagnosis: IPMN ?? Procedure(s) (LRB): ROBOTIC PANCREATECTOMY,WHIPPLE, PARTIAL GASTRECTOMY W/ PANCREATOJEJUNOSTOMY (N/A) MODIFIER ROBOT,DAVINCI XI (N/A) @OMENTAL FLAP, INTRA-ABDOMINAL (WRVU 6.54) ?? NURSING OBJECTIVE/ASSESSMENT: PT is calling with above INTERVENTION/PLAN/ FOLLOW UP: PT is to continue taking the omeprazole. If your symptoms do not improve, or they worsen, report to your local emergency department. CALLER AGREES: Yes PCP: Zeny James APRN documented in this encounter Plan of Treatment Upcoming Encounters Date Type Department Care Team (Late st Contact Info) Description 11/02/2023 1:00 PM EDT Office Visit Hematology/Oncology at [address] [phone] Mary Nails FISHING TACKLE REPAIRER [address] [place] [address] DR MEDICAL ONCOLOGY [place], [place] [phone] 11/02/2023 1:30 PM EDT Infusion Hematology Oncology at [address] [phone] documented as of this encounter Visit Diagnoses Not on filedocumented in this encounter Care Teams Manufacturing Sr Engineer Relationship Specialty Start Date End Date Zeny James APRN [address] [place] [address] [address] [facility] 1 [place] [address] PCP - General Family Medicine 09/23/19 documented as of this encounter
--- OUTSIDE RECORDS SUMMARY | 2023-11-02 02:28 | XMS_ITS | Encounter Summary ---
Author Organization [facility] [place] [address] Care Team Providers Care Senior Merchandiser Name Role Phone Zeny James APRN Primary Care Provider [phone] Reason for Referral * Diagnostic Test (Routine) - Closed Specialty Diagnoses / Procedures Referred By Contparish t Referred To Contact Radiology Diagnoses IPMN (intraductal papillary mucinous neoplasm) Procedures CT Abdomen & Pelvis w Contrast CT Abdomen w Contrast Regino Carolina MD [facility] [place] [address] [facility] [place] [address] Referral ID Status Reason Start Date Expiration Date V isits Requested Visits Authorized [id number] Closed Specialty Service Requested 09/28/2020 03/30/2022 1 1 Reason for Visit * Reason Comments Follow-up Encounter Details Date Type Department Care Team (Late st Contact Info) Description 09/28/2020 1:00 PM EDT Office [place] [phone] Regino Carolina MD [facility] [place] [address] IPMN (intraductal papillary mucinous neoplasm) [...] Sign Reading Time Taken Comments Blood Pressure 150/82 09/28/2020 12:52 PM EDT Pulse 68 09/28/2020 12:52 PM EDT Temperature - - Respiratory Rate 16 09/28/2020 12:5 2 PM EDT Oxygen Saturation 98% 09/28/2020 12: 52 PM EDT Inhaled Oxygen Concentration - - Weight 51.6 kg (113 lb 11.2 oz) 021 12:52 PM EDT Height 157.5 cm (5' 2.01) 09/28/2020 1 2:52 PM EDT Body Mass Index 20.79 09/28/2020 12:52 PM EDT documented in this encounter Progress Notes * Regino Carolina MD - 09/28/2020 1:00 PM EDT Surgical Oncology Office Note Date: 09/28/2020 Primary physician: Zeny James APRN Referring physician: Migue Urrutia MD Reason for evaluation: History of whipple on 03/23/2020 for 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 Interval History: Ms. Serrano is now a 75 year woman from [place], [place]. She presented to [facility] ED on 2019 with epigastric abdominal pain [...] of pancreatic duct/cyst fluid cytopathology per Acc# [id number] showed neoplastic Cells Present. Abundant macrophages, mixed leukocytes present and a single group of bland-appearing columnar cells. Cell block was examined. Note: The fluid CEA level is consistent with neoplastic process. 11/25/2019 surgical oncology consult. Maricruz was seen for surgery consultation. She was by herself. She described the episode that brought her to the ED at [facility] as the first time she is ever [...] with for her stage I ILC ER+, UT-, HER2-- IDC of the left breast. She [...] POD 0 03/23: To OR for robotic WhippROEL garcia post-op. Note intra-operative concern for common hepaticartery [...] BP 150/90s per medicine recs POD 8 03/31: nausea with a few episodes of emesis, BP improved on HCTZ, AXR unremarkable, hyponatremia (130) POD 9 04/01: continues to have nausea with a few episodes of larger volume emesis, CT A/P revealed stricture with SBO, NGT placed with symptomatic improvement POD 04/02: EGD demonstrating multiple ulcerations near GJ [...] the GJ anastomosis requiring TPN. Pathology: 03/23/2020 [facility]# [id number] Surgical Pathology DIAGNOSIS A - Portal vein [...] for diagnostic abnormality. Objective: Vitals: Blood pressure 150/82, pulse 68, resp. rate 16, height 157.5 cm (5' 2.01), weight 51.6 kg (113 lb 11.2 oz), SpO2 98 %. 09/30/2019 she weighed 113 pounds. 04/21/2019 she weighed 118 pounds. 01/28/2020 she weighed 123 pounds. 12/18/2019 she weighed 120 pounds. General: Maricruz looks great. She is by herself. Abdomen: Soft, non distended and nontender. The laparoscopic and robotic port scars with no hernias. Extremities: No peripheral edema and symmetric bilaterally. Assessment and plans: Maricruz really seems to be doing well. When asked she says she is 75% of her pre-Whipple energy levels and overall activity. She is still taking Creon as prescribed and has 1-2 bowel movements a day and some days skips a day. She is not having any diarrhea symptoms or steatorrhea symptoms. She is happy with her weight. We discussed a plan to obtain some baseline CT imaging when she comes back to see Dr. Dueñas in December. I ordered the CT abdomen for oncologic surveillance of I recurrent PMN. She will be meeting today with Aurelia to review her dietary history and pancreatic enzyme insufficiency issues at length-see Isabel's note for details. Jennifer Carolina MD 09/27/2020 10:11 PM This note was created using [employer] ([employer]) voice recognition software. Addendum: Labs reviewed below. Recent Results (from the past 24 hour(s)) Prealbumin Result Value Ref Range Prealbumin 21 20 - 40 mg/dL Comprehensive metabolic panel (non-fasting) Result Value Ref Range Glucose Lvl 127 65 - 199 mg/dL BUN 16 8 - 18 mg/dL Creatinine 0.65 (L) 0.70 - 1.20 mg/dL Sodium 136 135 - 145 mmol/L Potassium 4.0 3.5 - 5.0 mmol/L Chloride 101 98 - 107 mmol/L CO2 25 22 - 31 mmol/L Anion Gap 10 5 - 15 mmol/L Calcium 9.0 8.5 - 10.5 mg/dL Total Protein 6.5 6.1 - 8.0 gm/dL Albumin 4.1 3.2 - 5.2 gm/dL AST 28 0 - 30 unit/L ALT 27 0 - 30 unit/L Alk Phos 148 (H) 35 - 105 unit/L Total Bilirubin 0.3 0.2 - 1.3 mg/dL Estimated GFR 88 >=60 mL/min/1.73 m?? Iron and TIBC Result Value Ref Range Iron 63 30 - 150 mcg/dL TIBC 342 250 - 450 mcg/dL Iron Saturation 18 (L) 20 - 50 % Ferritin Result Value Ref Range Ferritin 19 (L) 30 - 400 ng/mL Hemogram Result Value Ref Range WBC 7.1 4.0 - 9.5 x10(3)/mcL RBC 4.25 4.00 - 5.21 x10(6)/mcL Hemoglobin 12.1 11.7 - 15.5 gm/dL Hematocrit 37.6 35.7 - 45.8 % MCV 88.5 82.6 - 94.4 fL MCH 28.5 27.1 - 32.0 pg MCHC 32.2 31.7 - 35.0 gm/dL Platelets 300 145 - 357 x10(3)/mcL RDWSD 45.8 37.0 - 46.0 fL RDWCV 14.2 (H) 11.5 - 14.1 % MPV 10.7 7.6 - 12.9 fL nRBC % Auto 0.0 % nRBC Abs Auto 0.000 0.000 - 0.000 x10(3)/mcL Differential, Automated Result Value Ref Range Neutrophils % 62.6 % Neutr Abs (ANC) 4.45 1 - 6 x10(3)/mcL Lymphocytes % 22.9 % Lymphocytes Abs 1.6 0.9 - 3.2 x10(3)/mcL Monocytes % 8.3 % Monocyte Abs 0.6 0.3 - 0.9 x10(3)/mcL Eosinophils % 5.1 % Eosinophils Abs 0.4 0.0 - 0.4 x10(3)/mcL Basophils % 0.8 % Basophils Abs 0.1 0.0 - 0.1 x10(3)/mcL Immature Gran % 0.30 % Nory Gran Abs 0.02 0.00 - 0.04 x10(3)/mcL documented in this encounter Plan of Treatment Upcoming Encounters Date Type Department Care Team (Late st Contact Info) Description 11/02/2023 1:00 PM EDT Office Visit Hematology/Oncology at [address] [phone] Mary Nails APRN [address] [place] [address] DR MEDICAL ONCOLOGY [place], [place] [phone] 11/02/2023 1:30 PM EDT Infusion Hematology Oncology at [address] [phone] documented as of this encounter Results * CT Abdomen & [...] who have questions please contact the health rn wound care that requested your imaging first. ? Electronically signed by: Raimundo Mccurdy MD, [facility] ([phone]), at 12/01/2020 3:41 PM Narrative 12/01/2020 3:41 [...] administration of contrast. Administered 66.0 ml of AALZWOSME397.00 mg/ml. Oral contrast was administered. COMPARISON: CT [...] patients who have questions please contactthe health rn wound care that requested your imaging first. Regino Carolina MD IMG CT ORDERABLES documented in this encounter Visit Diagnoses Diagnosis IPMN (intraductal papillary mucinous neoplasm) Neoplasm of unspecified nature of digestive system IPMN (intraductal papillary mucinous neoplasm) Neoplasm of unspecified nature of digestive system documented in this encounter Care Teams Senior Merchandiser Relationship Specialty Start Date End Date Erika ZenyJESUS ALBERTO noriega [address] [place] [address] PCP - General Family Medicine 09/23/19 documented as of this encounter
--- OUTSIDE RECORDS SUMMARY | 2023-11-02 02:28 | XMS_ITS | Encounter Summary ---
Author Organization [facility] [place] [address] Care Team Providers Care Fruit Or Nut Crops Farm Manager Name Role Phone Zeny James APRN Primary Care Provider Reason for Visit * Reason Comments Follow-up Encounter Details Date Type Department Care Team (Late st Contact Info) Description 05/19/2020 2:30 PM EST Office [place] [phone] Regino Carolina MD [facility] [place] [address] Gastroparesis Social History Tobacco Use Types Packs/Day Years [...] Sign Reading Time Taken Comments Blood Pressure 142/79 05/19/2020 2:02 PM EST Pulse 74 05/19/2020 2:02 PM EST Temperature 36.5 ??C (97.7 ??F) 05/19/2020 2:02 PM ES T Respiratory Rate 16 05/19/2020 2:02 PM EST Oxygen Saturation 97% 05/19/2020 2:02 PM EST Inhaled Oxygen Concentration - - Weight 52.9 kg (116 lb 9.6 oz) 05/19/2020 2:02 P M EST Height 157.5 cm (5' 2.01) 05/19/2020 2:02 PM ES T Body Mass Index 21.32 05/19/2020 2:02 PM EST documented in this encounter Progress Notes * Regino Carolina MD - 05/19/2020 2:30 PM EST Maricruz really seems to be doing much better. The PICC line was removed by the IV team prior today. She is happy to get that out and also happy to not have any houseguests at home-she had both her son staying with her and then a friend staying with her and she is still getting the VNA which she does not think she needs and I agree. We discussed how she will continue on the proton pump inhibitor-the pantoprazole or the omeprazole until she runs out of the 40 mg tablets and then she can go back to 20 mg daily which is her home dose. She will see Zeny Rodarte, her primary provider, and November at which time a hemoglobin A1c can bechecked. She has been checking her sugars twice a day and her numbers have been running in the low 100s to as high as 140 on occasion at nighttime. We discussed how she can start checking her sugars only in the morning time and to keep a log and if she is having persistent over 140 and she can reach start checking twice a day. She is still taking Creon as prescribed. No concerns on exam. She is down 2 pounds but otherwise looks quite good and is in good spirits. Abdomen is soft, nondistended and nontender. Laparoscopic/robotic port sites with no hernias. I will look forward to seeing her back in the summertime with blood work to be ordered by Aurelia and we can see how she is doing from a nutritional standpoint. For now she will continue taking the Creon with her meals. It is great to see her family doing so well. This note was created using [employer] ([employer] voice recognition software. documented in this encounter Plan of Treatment Upcoming Encounters Date Type Department Care Team (Late st Contact Info) Description 11/02/2023 1:00 PM EDT Office Visit Hematology/Oncology at [address] [phone] Mary Nails APRN [address] [place] [address] MEDICAL ONCOLOGY [place], [place] [address] 11/02/2023 1:30 PM EDT Infusion Hematology Oncology at [address] [phone] documented as of this encounter Visit Diagnoses Diagnosis Gastroparesis documented in this encounter Care Teams Fruit Or Nut Crops Farm Manager Relationship Specialty Start Date End Date Zeny James APRN [address] [place] [address] [address] [place], [place] [address] PCP - General Family Medicine 09/23/19 documented as of this encounter
--- OUTSIDE RECORDS SUMMARY | 2023-11-02 02:28 | XMS_ITS | Encounter Summary ---
Author Organization [facility] [place] [address] Care Team Providers Care Pewter Caster Name Role Phone Zeny James APRN Primary Care Provider Encounter Details Date Type Department Care Team (Late st Contact Info) Description 04/27/2020 9:30 AM EST Telephone Hematology [place] [address] Social History Tobacco Use [...] Telephone Encounter - Aurelia Negrete RD - 04/27/2020 8:27 AM EST [facility] Dietitian Follow Up Call Linda is 74 years with newly diagnosed IPMN, s/p Whipple Resection Operations/Major Procedures: Operations: 03/23/2020 Surgeon(s) and Role: * Regino Carolina MD - Primary: Procedure(s): ROBOTIC PANCREATECTOMY,WHIPPLE, PARTIAL GASTRECTOMY W/ PANCREATOJEJUNOSTOMY MODIFIER ROBOT,DAVINCI XI @OMENTAL FLAP, INTRA-ABDOMINAL (WRVU 6.54) TPN Formula for Discharge (Show up to 1 orders; newest on the left.) ?? Start date and time 04/11/2020 1800 ? Adult TPN [[id number]] ?? Order Status ?? Active ? Macro Ingredients ?? amino acid 15% no.5 (ClinisoL) ?? 110 g ?? dextrose 70% ?? 118 g ? Electrolytes ?? sodium phosphate ?? 48 mmol ?? potassium chloride ?? 100 mEq ?? sodium chloride ?? 210 mEq ? Additives ?? trace elements Zn-Cu-Mn-Se ?? 1 mL ?? ascorbic acid (vitamin C) ?? 100 mg ?? Vit R5-Y0-A3-B5-B6 (B Complex) ?? 1 mL ?? zinc sulfate ?? 10 mg ? Medications ?? insulin regular human ?? 8 Units ? QS Base ?? sterile water ?? 116.32 mL ? Lipid ?? fat emulsion 30 % ?? 55 g ? Energy Contribution ?? Proteins ?? 440 kcal ?? Dextrose ?? 401.27 kcal ?? Lipids ?? 549 kcal ?? Total ?? 1,390.27 kcal ? Electrolyte Ion Calculated Amount ?? Sodium ?? 274 mEq ?? Potassium ?? 100 mEq ?? Calcium ?? -- ?? Magnesium ?? -- ?? Aluminum ?? -- ?? Phosphate ?? 50.75 mmol ?? Chloride ?? 310 mEq ?? Acetate ?? 93.13 mEq ? Other ?? Total Amino Acid ?? 110 g ?? Total Amino Acid/kg ?? 2.06 g/kg ?? Glucose Infusion Rate ?? 2.05 mg/kg/min ?? Osmolarity (Estimated) ?? 1,858.02 ?? Volume ?? 1,332 mL ?? Rate ?? 74 mL/hr ?? Dosing Weight ?? 53.3 kg ?? Infusion Site ?? [facility] ? Admin Instructions ? For 2-in-1 TPN (no lipid): Attach 0.2 micron filter set to primary set prior to infusion. For 2-in-1 TPNs with Y-sited lipids: Attach 1.2 micron filter set below Y-site. For 3-in-1 TPN (Lipid in TPN bag): Attach 1.2 micron filter set to primary set prior to infusion. Warning Vesicant/Irritant Medication Consuming several small meals a day--5 at the most but low appetite persists as well as early satiety. Experiences post prandial discomfort/pain even with smaller volume. She will discontinue Reglan today/last dose. She sent me text of her intake over past few days/in (*) I have included number of Creon she is taking with meals. 04/21/20: one slice cheese pizza (2) 04/22/20: 650 kcals, additional 460 kcals in fluids oatmeal with blueberries, brown sugar, coffee (2) 1/2 croissant with smart balance (1) Small piece of chicken parm (1) 1/2 blueberry muffin (1) Meat loaf, some sweet potato (2) Liquids; gingerale 16 ounces, coffee 10 ounces, V 8 juice 6 ounces, cran grape juice 16 ounces 04/23/20: (800) liquid kcals, additional 380 kcals in fluids Oatmeal, blueberries, brown sugar, coffee (2) 1/2 croissant with smart balance (1) Small piece chicken parm (2) 1/2 almond croissant (2) 5 ritz with cheese (1) Meatloaf, sweet potato (2) Liquids: gingerale 16 ounces, coffee 10 ounces, V8 6 ounces, water 10 ounces, juice 10 ounces 04/24/20: (860 kcals) 1/2 eng muffin with peanut butter and jelly V8 juice and two ritz crackers Small piece of spanikopita 4 thin slices ched cheese Meat loaf with sweet potato, smart balance, small bread 4 thin slices of ched cheese and V 8 juice 04/25/20: (875 kcals) 1/2 eng muffin with pb and jelly V8 juice and 2 ritz Small pieces of spanikopita 4 thin slices ched cheese Meat loaf with sweet pot and small bread and smart balance 4 slices cheese 04/26/20: (700 kcals) Oatmeal with peanut butter V8 and ritz crackers 5 ritz and tuna salad Chicken and sweet potato avg intake is 775 calories/D not including liquid kcals which could provide an additional 300-400 kcals. Nausea: denies Vomiting: denies Taste: no taste disturbances Bowels: slow bowels, miralax/not needed more recently, this morning, very light colored stools Bloating/gas/post prandial pain: denies Early satiety: yes Chewing: denies issue Swallowing: denies issue DM: 15 units of insulin added to TPN bag only, no history of DM prior to surger. Instructed by Dr Carolina to check twice daily: am and pm Blood sugars are better Blood pressure is still high 150-180/90 seeing MD today ?? Last Monday, miserable due to stomach pain. Objective: Wt Readings from Last 3 Encounters: 04/21/20 53.5 kg (118 lb) 03/27/20 53.3 kg (117 lb 9.6 oz) 01/28/20 55.8 kg (123 lb) Weight History: UBW: %UBW: IBW: %IBW: Weight loss%: Usual weight is 120 pounds Weight on Monday: at 116 pounds Vitamins, herbs, teas, nutritional supplements: currently on TPN Food allergies or food avoidances: prefers wholesome diet Activity: not lately due to weather/ice Social: her son, Roberto Calros, with her until Monday - other Son from [place] came to replace him this past weekend, then her sister will come Financial restraints: did not assess Assessment/Plan: Averaging 875 kcals/D with oral intake. Continues home TPN. Low appetite. Early satiety. 1. Recommend every other night TPN/communication with [facility] RDN/orders signed. I will request followup call in another week. 2. Maricruz discontined Reglan today, will continue to monitor. documented in this encounter Plan of Treatment Upcoming Encounters Date Type Department Care Team (Late st Contact Info) Description 11/02/2023 1:00 PM EDT Office Visit Hematology/Oncology at [address] [phone] Mary Nails APRN [address] [place] [address] [place] [address] 11/02/2023 1:30 PM EDT Infusion Hematology Oncology at [address] [phone] documented as of this encounter Visit Diagnoses Not on filedocumented in this encounter Care Teams Pewter Caster Relationship Specialty Start Date End Date Zeny James APRN [address] [place], [place] [address] PCP - General Family Medicine 09/23/19 documented as of this encounter
--- OUTSIDE RECORDS SUMMARY | 2023-11-02 02:28 | XMS_ITS | Encounter Summary ---
Author Organization [facility] [place] [address] Care Team Providers Care Mail Inserter Name Role Phone Zeny James APRN Primary Care Provider Encounter Details Date Type Department Care Team (Late st Contact Info) Description 06/25/2020 Telephone Hematology [place] [phone] Aurelia Negrete, JOSE MANUEL Social History Tobacco [...] Telephone Encounter - Aurelia Negrete RD - 06/26/2020 8:16 AM EST Received call from Linda-has experienced occasional loose urgent stools otherwise moving bowels once daily. Finds that she needs to take laxative each pm to keep bowels moving. Inquires if this may be related to malabsorption. Adds that weight is stable. 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 +Gas. Currently dosing Creon 24: 2 with meals and 1 with snacks. Suspect AMANDA : recommend increase to 3 Creon 24 with meals and 1 with snacks. I will f/u call end [facility] to check in but encouraged Linda to contact me any time before this date if needed. (Linda also relayed that she fell in May, fractured a rib, accidentally caught her toe insidethe seam of her pants and fell. Feeling better since this incident). documented in this encounter Plan of Treatment Upcoming Encounters Date Type Department Care Team (Late st Contact Info) Description 11/02/2023 1:00 PM EDT Office Visit Hematology/Oncology at [address] [phone] Mary Nails APRN [address] [place] [address] DR MEDICAL ONCOLOGY [place], [place] [id number] 11/02/2023 1:30 PM EDT Infusion Hematology Oncology at [address] [phone] documented as of this encounter Visit Diagnoses Not on filedocumented in this encounter Care Teams Mail Inserter Relationship Specialty Start Date End Date Zeny James APRN [address] [place], [place] [address] PCP - General Family Medicine 09/23/19 documented as of this encounter
--- OUTSIDE RECORDS SUMMARY | 2023-11-02 02:28 | XMS_ITS | Encounter Summary ---
[facility] [place] [address] Care Team Providers Care Dress Fitter Name Role Phone Zeny James JESUS ALBERTO Primary Care Provider Encounter Details Date Type Department Care Team (Late st Contact Info) Description 09/28/2020 Orders [place] [phone] Arline Maurice RN Pre-diabetes; IPMN (intraductal papillary mucinous neoplasm) Social History [...] PM EDT Office Visit Hematology/Oncology at [address] [phone] Mary Nails APRN [address] [place] [address] MEDICAL ONCOLOGY [place], [place] [id number] 11/02/2023 1:30 PM EDT Infusion Hematology Oncology at [address] [phone] documented as of this encounter Visit Diagnoses Diagnosis Pre-diabetes Other abnormal glucose IPMN (intraductal papillary mucinous neoplasm) Neoplasm of unspecified nature of digestive system documented in this encounter Care Teams Dress Fitter Relationship Specialty Start Date End Date Zeny JamesJESUS ALBERTO [address] [place] [address] PCP - General Family Medicine 09/23/19 documented as of this encounter
--- OUTSIDE RECORDS SUMMARY | 2023-11-02 02:28 | XMS_ITS | Encounter Summary ---
Author Organization [facility] [place] [address] Care Team Providers Care Oven Unloader Name Role Phone Zeny James APRN Primary Care Provider Reason for Visit * Reason Comments Constipation Encounter Details Date Type Department Care Team (Late st Contact Info) Description 04/16/2020 Telephone [place] [phone] Arline Maurice RN Constipation Social History Tobacco Use Types Packs/Day Years [...] encounter Miscellaneous Notes * Telephone Encounter - Arline Maurice RN - 04/16/2020 1:30 PM EST See previous phone note. Linda took a dose of Miralax and subsequently had a good BM. She asks if she should add Miralax to her morning regimen. Advised we do not want to send her too far into the other direction and give her diarrhea, so recommended she only use it prn - if she does not have a BMthe previous day, then she will take it in the morning. She agrees. * Telephone Encounter - Arline Maurice RN - 04/16/2020 8:45 AM EST Ms. Serrano is s/p Whipple on 03/23/[address] Carolina. She calls today to report no BM for the past 36 hours, continues to pass flatus (estimates 3 times in that time period). She is not distended, no nausea, no abdominal pain. She is taking 2 yasmine-colace BID as advised at discharge from the hospital. Prior to her bowels stopping, she was having loose BMs several times per day, though they were slowing and firming up over time. She is on cycled TPN and has actually been taking in quite a bit by mouth as well with no fullness or nausea. Typical daily intake is yogurt, shake made with ice cream/yogurt/banana/almond milk/protein powder, ice cream, julio crackers, ritz crackers, broth, apple j uice, cranberry shannon kojo, decaf coffee. Recommended she try Miralax once a day. Encouraged her touse the on-call system to speak to a doctor over the holiday weekend if she does not move her bowels or if she develops any new symptoms. She agrees. documented in this encounter Plan of Treatment Upcoming Encounters Date Type Department Care Team (Late st Contact Info) Description 11/02/2023 1:00 PM EDT Office Visit Hematology/Oncology at [address] [phone] Mary Nails APRN [address] [place] [address] DR MEDICAL ONCOLOGY [place], [place] [id number] 11/02/2023 1:30 PM EDT Infusion Hematology Oncology at [address] [phone] documented as of this encounter Visit Diagnoses Not on filedocumented in this encounter Care Teams Oven Unloader Relationship Specialty Start Date End Date Zeny James APRN [address] [place] [address] [address] [place] [address] PCP - General Family Medicine 09/23/19 documented as of this encounter
--- OUTSIDE RECORDS SUMMARY | 2023-11-02 02:28 | XMS_ITS | Encounter Summary ---
Author Organization [facility] [place] [address] Care Team Providers Care Tapper Shank Name Role Phone Zeny James APRN Primary Care Provider Encounter Details Date Type Department Care Team (Late st Contact Info) Description 05/04/2020 9:30 AM EST Telephone Hematology [place] [phone] Social History Tobacco Use [...] Telephone Encounter - Aurelia Negrete RD - 05/04/2020 10:01 AM EST [facility] Dietitian Follow Up Call Linda is 74 years with newly diagnosed IPMN, s/p Whipple Resection Operations/Major Procedures: Operations: 03/23/2020 Surgeon(s) and Role: * Regino Carolina MD - Primary: Procedure(s): ROBOTIC PANCREATECTOMY,WHIPPLE, PARTIAL GASTRECTOMY W/ PANCREATOJEJUNOSTOMY MODIFIER ROBOT,DAVINCI XI @OMENTAL FLAP, INTRA-ABDOMINAL (WRVU 6.54) Called Maricruz--states that appetite remains very low--still never hungry. She sent me her daily food record via text. On average, consuming 750 kcals/D. Weight is stable at 116 pounds. Dosing Senna one in am and pm. Denies nausea or dry heaves. I feel like I am getting stronger. Sister here until Monday and then friend coming to help out. When on TPN at night very thirsty/and up two or three times a night. Consuming 6 cups of fluid during the day. Objective: Wt Readings from Last 3 Encounters: 04/21/20 53.5 kg (118 lb) 03/27/20 53.3 kg (117 lb 9.6 oz) 01/28/20 55.8 kg (123 lb) Weight History: UBW: %UBW: IBW: %IBW: Weight loss%: Usual weight is 120 pounds Weight on Monday: at 116 pounds Assessment/Plan: 1. Recommend continue every other day TPN but recommend decr volume and kcal provision: Email communication with Nicolle/JORGE, orders signed by Herbie Jordan APRN: Current parenteral prescription (based on wt of 52.7 kg): 118 g Dex (GIR = 2.4 mg/kg/min), 110 g AA (2 g/kg) and 55 g Lipid (1.1 g/kg) in 1330 mL over 12 hours - Pt infuses every other night for an average of 696 kcals/day (meets ~44% of est. energy needs) Aurelia Negrete RD spoke with pt for nutrition assessment and reports her PO intake is ~750 kcals/day. She takes in ~1.5L of liquids throughout the day and weight is stable at 116 lbs this week despite reduction in TPN to [id number]. She is up frequently overnight to urinate and is hoping we would be able to make another slight reduction to TPN this week. Labs from 04/30/2020: Na: 132 (L), K: 4, Cl/CO2: 95 (L)/25.6, BUN/Cr: 14/0.58, Ca: 8.5, P: 4.6, Ma Alk Phos: 103, AST: 28, ALT: 41, tBili: 0.4, Alb: 3 (L), Tri Glucose: 153 WBC: 6.34 Na trended up slightly from 130 to 132. Cl stable yet low. BUN improved to WNL this week. LFTs normal. Recommendations: - Reduce volume to 1000 mL - Reduce macronutrients: 100g Dex, 90g AA and 40g Lipids to provide 1100 kcals/bag and an average of 550 kcals/day with pt???s [id number] infusion schedule. - Reduce Na content to ~230 mEq in total, proportional to volume decrease: o Reduce NaPhos to 40 mmol/day o Reduce NaCl to 177 mEq/day - Reduce insulin proportionally to dextrose reduction: 12 units/bag . 2. Follow up call in one week. documented in this encounter Plan of Treatment Upcoming Encounters Date Type Department Care Team (Late st Contact Info) Description 11/02/2023 1:00 PM EDT Office Visit Hematology/Oncology at [address] [phone] Mary Nails APRN [address] [place] [address] MEDICAL [place]COLOGY [place], [place] [address] 11/02/2023 1:30 PM EDT Infusion Hematology Oncology at [address] [phone] documented as of this encounter Visit Diagnoses Not on filedocumented in this encounter Care Teams Tapper Shank Relationship Specialty Start Date End Date Zeny James APRN [address] [place] [address] PCP - General Family Medicine 09/23/19 documented as of this encounter
--- OUTSIDE RECORDS SUMMARY | 2023-11-02 02:28 | XMS_ITS | Encounter Summary ---
Author Organization [facility] [place] [address] Care Team Providers Care Brand Recorder Name Role Phone Zeny James JESUS ALBERTO Primary Care Provider Encounter Details Date Type Department Care Team (Late st Contact Info) Description 09/07/2020 Orders [place] [phone] Regino Carolina MD [facility] [place] [address] Social History Tobacco Use Types Packs/Day Years [...] PM EDT Office Visit Hematology/Oncology at [address] [phone] Mary Nails [address] MEDICAL ONCOLOGY [place], [place] [address] 11/02/2023 1:30 PM EDT Infusion Hematology Oncology at [address] [phone] documented as of this encounter Visit Diagnoses Not on filedocumented in this encounter Care Teams Brand Recorder Relationship Specialty Start Date End Date Zeny James APRN [address] [place] [address] PCP - General Family Medicine 09/23/19 documented as of this encounter
--- OUTSIDE RECORDS SUMMARY | 2023-11-02 02:28 | XMS_ITS | Encounter Summary ---
Author Organization [facility] [place] [address] Care Team Providers Care Assistant Manager/Embalmer Name Role Phone Zeny James APRN Primary Care Provider Encounter Details Date Type Department Care Team (Late st Contact Info) Description 04/21/2020 2:30 PM EST Clinical Support [place] [address] IPMN (intraductal papillary mucinous [...] Progress Notes * Aurelia Negrete RD - 04/21/2020 2:30 PM EST [facility] Dietitian Initial Consultation Referred by: Surg Onc Reason for consultation: LUX Mckeon is 74 years with newly diagnosed IPMN, s/p Whipple Resection Operations/Major Procedures: Operations: 03/23/2020 Surgeon(s) and Role: * Regino Carolina MD - Primary: Procedure(s): ROBOTIC PANCREATECTOMY,WHIPPLE, PARTIAL GASTRECTOMY W/ PANCREATOJEJUNOSTOMY MODIFIER ROBOT,STEPHANIE XI @OMENTAL FLAP, INTRA-ABDOMINAL (WRVU 6.54) Appetite: full liquid diet TPN Formula for Discharge (Show up to 1 orders; newest on the left.) ?? Start date and time 04/11/2020 1800 ? Adult TPN [[id number]] ?? Order Status ?? Active ? Macro Ingredients ?? amino acid 15% no.5 (ClinisoL) ?? 110 g ?? dextrose 70% ?? 118 g ? Electrolytes ?? sodium phosphate ?? 48 mmol ?? potassium chloride ?? 100 mEq ?? sodium chloride ?? 210 mEq ? Additives ?? trace elements Zn-Cu-Mn-Se ?? 1 mL ?? ascorbic acid (vitamin C) ?? 100 mg ?? Vit N1-W7-V7-B5-B6 (B Complex) ?? 1 mL ?? zinc [...] prior to infusion. Warning Vesicant/Irritant Medication Consuming full liquid diet only: Protein drink, cream of wheat, saltines, vegetable juice, Granola and yogurt, soup Nausea: denies Vomiting: denies Taste: no taste disturbances Bowels: slow bowels, miralax as needed Bloating/gas/post prandial pain: denies Early satiety: consuming mostly liquid diet--will advance to regular diet today Chewing: denies issue Swallowing: denies issue DM: 15 units of insulin added to TPN bag only, no history of DM prior to surgery. Blood sugars checked four times a day and run between 150-222mg/dL. Instructed by Dr Carolina today to check twice daily: am and pm ?? Objective: Wt Readings from Last 3 Encounters: 04/21/20 53.5 kg (118 lb) 03/27/20 53.3 kg (117 lb 9.6 oz) 01/28/20 55.8 kg (123 lb) Wt Readings from Last 3 Encounters: 03/27/20 53.3 kg (117 lb 9.6 oz) 01/28/20 55.8 kg (123 lb) 01/09/20 54.7 kg (120 lb 9.6 oz) Weight History: UBW: %UBW: IBW: %IBW: Weight loss%: Usual weight is 120 pounds AMBULATORY MEDICATIONS: Reviewed Significant labs: reviewed Vitamins, herbs, teas, nutritional supplements: currently on TPN Food allergies or food avoidances: prefers wholesome diet i Food intake as compared to normal: as above Activity: not lately due to weather/ice Social: her son, Roberto Carlos, with her until Monday - other Son from [place] coming to replace him this weekend,then her sister will come Financial restraints: did not assess Assessment/Plan: Maricruz currently maintaining on TPN , tolerating full liquids--ready to advance to reg diet. She willremain on Reglan and Creon 24. She will also remain on Omeprazole. She was advised by Dr Carolina to check blood sugars twice daily vs four times/D. Most of our conversation today focused on advancing her diet, keeping food and fluid record, signs/symptoms of AMANDA, and potential wean from TPN. I provided my contact phone number to patient's son, Roberto Carlos, but will plan on calling Maricruz on Apr 27. Suspect that she may be ready at that point to switch to every other night TPN. Communication with JORGE PATRICK: Nickolas Moses! Happy New Year! I have been following Linda for a couple of weeks - I am glad to hear she will be seeing you in clinic too! Her current order is attached. I did email Dr. aCrolina yesterday as her lab levels of Mag and Ca weremildly low, so I recommended adding 5 mEq of each nutrient, as well as increasing the NaCl slightlybut we didn???t get the order back in time to compound so she will be receiving that next week. I did not get a chance to talk to her yesterday (I tried calling but one of us was having phone issues so I was unable to get through). Let me know if you have any recommended changes and I can get a new order together for next week! Nicolle Thank you for this consult. documented in this encounter Plan of Treatment Upcoming Encounters Date Type Department Care Team (Late st Contact Info) Description 11/02/2023 1:00 PM EDT Office Visit Hematology/Oncology at [address] [phone] Mary Nails APRN [address] [place] [address] DR MEDICAL ONCOLOGY [place], [place] [id number] 11/02/2023 1:30 PM EDT Infusion Hematology Oncology at [address] [phone] documented as of this encounter Visit Diagnoses Diagnosis IPMN (intraductal papillary mucinous neoplasm) Neoplasm of unspecified nature of digestive system documented in this encounter Care Teams Assistant Manager/Embalmer Relationship Specialty Start Date End Date Zeny James APRN [address] [place] [address] PCP - General Family Medicine 09/23/19 documented as of this encounter
--- OUTSIDE RECORDS SUMMARY | 2023-11-02 02:28 | XMS_ITS | Encounter Summary ---
Author Organization [facility] [place] [address] Care Team Providers Care Hiv Nurse Name Role Phone Zeny James JESUS ALBERTO Primary Care Provider Encounter Details Date Type Department Care Team (Late st Contact Info) Description 10/07/2020 Orders Only [place] [address] Arline Maurice, RN Social History Tobacco Use Types Packs/Day [...] PM EDT Office Visit Hematology/Oncology at [address] [phone] Mary Nails APRN [address] [place] [address] [place] [address] 11/02/2023 1:30 PM EDT Infusion Hematology Oncology at [address] [phone] documented as of this encounter Visit Diagnoses Not on filedocumented in this encounter Care Teams Hiv Nurse Relationship Specialty Start Date End Date Zeny James APRN [address] [place] [address] PCP - General Family Medicine 09/23/19 documented as of this encounter
--- OUTSIDE RECORDS SUMMARY | 2023-11-02 02:28 | XMS_ITS | Encounter Summary ---
Author Organization [facility] [place] [address] Care Team Providers Care Dielectric Tester Name Role Phone Zeny James APRN Primary Care Provider Reason for Visit * Reason Comments Follow-up Encounter Details Date Type Department Care Team (Late st Contact Info) Description 04/21/2020 2:30 PM EST Office [place] [address] Regino Carolina MD [facility] [place] [address] IPMN (intraductal papillary mucinous neoplasm) Social History [...] Sign Reading Time Taken Comments Blood Pressure 179/92 04/21/2020 2:36 PM EST Pulse 83 04/21/2020 2:36 PM EST Temperature 36.4 ??C (97.6 ??F) 04/21/2020 2:36 PM ES T Respiratory Rate 16 04/21/2020 2:36 PM EST Oxygen Saturation 100% 04/21/2020 2:36 PM EST Inhaled Oxygen Concentration - - Weight 53.5 kg (118 lb) 04/21/2020 2:36 PM EST Height 157.5 cm (5' 2.01) 04/21/2020 2:36 PM ES T Body Mass Index 21.58 04/21/2020 2:36 PM EST documented in this encounter Progress Notes * Regino Carolina MD - 04/21/2020 2:30 PM EST Surgical Oncology Office Note Date: 04/21/2020 Primary physician: Zeny James APRN Referring physician: Migue Urrutia MD Reason for evaluation: First postop visit s/p alexipple on 03/23/2020. Interval History: Ms. Serrano is a 74 year woman from [place], [place]. She presented to [facility] ED on2019 with epigastric abdominal pain x1 day and [...] of pancreatic duct/cyst fluid cytopathology per Acc# [id number] showed neoplastic Cells Present. Abundant macrophages, mixed leukocytes present and a single group of bland-appearing columnar cells. Cell block was examined. Note: The fluid CEA level is consistent with neoplastic process. 11/25/2019 surgical oncology consult. Maricruz was seen for surgery consultation. She was by herself. 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 She [...] on HCTZ, AXR unremarkable, hyponatremia (130) POD 04/01: continues to have nausea with a few episodes of larger volume emesis, CT A/P revealed stricture with SBO, NGT placed with symptomatic improvement POD 04/02: EGD demonstrating multiple ulcerations near GJ anastamosis POD 04/03: Abx started for PNA tx POD [...] ulcer at the GJ anastomosis requiring TPN. Medications: ??? omeprazole (PriLOSEC) 20 mg Capsule, Delayed Release(E.C.) ??? vnixlx-mmevgrgv-gtygcww ([place] 24) 24,000-76,000 -120,000 unit Capsule, Delayed Release(E.C.) ??? carvediloL (Coreg) 3.125 mg Tablet ??? HYDROmorphone (Dilaudid) 2 mg Tablet ??? metoclopramide (Reglan) 10 mg Tablet ??? pantoprazole EC (Protonix) 40 mg Tablet, Delayed Release (E.C.) ??? senna-docusate (Pericolace) 8.6-50 mg Tablet ??? Blood-Glucose Meter Misc ??? Insulin Syringe-Needle U-100 0.3 mL 31 gauge x 5/16 Syringe ??? lancets 33 gauge Misc ??? novoLIN R Solution ??? vitamin E (vitamin E) 400 unit Capsule ??? qskjtk-mqauucre-mdcxnig (Ryan) 24,000-76,000 -120,000 unit Capsule, Delayed Release(E.C.) ??? acetaminophen (Tylenol) 500 mg Tablet ??? aspirin EC 81 mg Tablet, Delayed Release (E.C.) ??? b complex vitamins Capsule ??? CALCIUM CARBONATE-VITAMIN D3 ORAL ??? pravastatin (Pravachol) 20 mg Tablet ??? albuteroL 90 mcg/actuation HFA Aerosol Inhaler ??? fluticasone propionate (FLONASE) 50 mcg/actuation [place], Suspension ??? anastrozole (Arimidex) 1 mg Tablet ??? Wixela Inhub 500-50 mcg/dose Disk with Device ??? cholecalciferol, Vitamin D3, 1,000 unit Capsule ??? multivit,iron,minerals/lutein (CENTRUM SILVER ULTRA WOMEN'S ORAL) ??? magnesium oxide 400 mg magnesium Capsule ??? fish oil-omega-3 fatty acids 1,000 mg Capsule Pathology: 03/23/2020 [facility]# [id number] Surgical Pathology DIAGNOSIS A - Portal vein [...] for diagnostic abnormality. Objective: Vitals: Blood pressure (!) 179/92, pulse 83, temperature 36.4 ??C (97.6 ??F), resp. rate 16, .5 cm (5' 2.01), weight 53.5 kg (118 lb), SpO2 100 %. 04/21/2019 she weighed 118 pounds. 01/28/2020 she weighed 123 pounds. 12/18/2019 she weighed 120 pounds. General: Maricruz really does look quite good. She is here today with her son-Roberto Carlos Chest: Auscultation on exam of posterior lung daniel-clear to auscultation bilaterally Heart: Regular rate and rhythm Abdomen: Soft, non distended and nontender. The laparoscopic and robotic port sites have all healednicely. I removed some of the excess Dermabond. Extremities: No peripheral edema and symmetric bilaterally. Assessment and plans: Maricruz was seen today in the surgery clinic accompanied by her son-Roberto Carlos who has been staying with her odilia Branch since discharge on the day after Annalee. Overall she seems to be doing quite well getting the TPN and taking in liquids mostly juices during the day. She said When can I try to eat-I am starving to in 1 to try some food? She is still on Reglan and is taking the Omeprazole. She gets 15 units of insulin in the nightly TPN- up from 8 units. Her sugars are running mostly in the 150-200's range. She was not a diabetic prior to the whipple surgery. We discussed a plan for her to start reintroducing food as tolerated. We discussed how she may havesome days of nausea or even some vomiting but I had like her to try to start eating regular food ifshe can. I saw her today with Aurelia and uArelia will talk to her about what foods to try and keep her on the schedule to check in weekly to see how she is doing. Hopefully we can get to a point where she is taking more by mouth so that we can either wean or stop the TPN over the next few weeks. I would like to see her back in 1 month's time. Jennifer Carolina MD 04/21/2020 3:09 PM This note was created using [employer]) voice recognition software. documented in this encounter Plan of Treatment Upcoming Encounters Date Type Department Care Team (Late st Contact Info) Description 11/02/2023 1:00 PM EDT Office Visit Hematology/Oncology at [address] [phone] Mary Nails APRN [address] [place] [address] [place] [address] 11/02/2023 1:30 PM EDT Infusion Hematology Oncology at [address] [phone] documented as of this encounter Visit Diagnoses Diagnosis IPMN (intraductal papillary mucinous neoplasm) Neoplasm of unspecified nature of digestive system documented in this encounter Care Teams Dielectric Tester Relationship Specialty Start Date End Date Zeny James APRN [address] [place] [address] PCP - General Family Medicine 09/23/19 documented as of this encounter
--- OUTSIDE RECORDS SUMMARY | 2023-11-02 02:28 | XMS_ITS | Encounter Summary ---
Author Organization [facility] [place] [address] Care Team Providers Care Nursing Executive Name Role Phone Zeny James APRN Primary Care Provider Encounter Details Date Type Department Care Team (Late st Contact Info) Description 11/25/2020 Telephone Dermatology at [facility] [address] [place] [address] Estela Velasquez MD [facility] [place] [address] Social History Tobacco Use Types Packs/Day Years [...] * Telephone Encounter - Courtney Medrano - 12/10/2020 9:[address] Velasquez patient I left a voice message on [employer] phone to call. I was able to schedule her an appointment on 01/11/21 at 4:00pm with Dr. Velasquez per her request since she [place] [facility] [place] * Telephone Encounter - Mani Rivas LNA - 11/25/2020 4:33 PM EDT Linda Serrano called and asked for secretary board of commissioners to call her back at [phone] she is hoping she could be scheduled on 01/11 with , however I was unable to help due to having a full schedule on this day. documented in this encounter Plan of Treatment Upcoming Encounters Date Type Department Care Team (Late st Contact Info) Description 11/02/2023 1:00 PM EDT Office Visit Hematology/Oncology at [address] [phone] Mary Nails APRN [address] [place] [address] DR MEDICAL ONCOLOGY [place], [place] [id number] 11/02/2023 1:30 PM EDT Infusion Hematology Oncology at [address] [phone] documented as of this encounter Visit Diagnoses Not on filedocumented in this encounter Care Teams Nursing Executive Relationship Specialty Start Date End Date Zeny James APRN [address] [place] [address] PCP - General Family Medicine 09/23/19 documented as of this encounter
--- OUTSIDE RECORDS SUMMARY | 2023-11-02 02:28 | XMS_ITS | Encounter Summary ---
Author Organization [facility] [place] [address] Care Team Providers Care Assistant Spa Manager Name Role Phone Zeny James APRN Primary Care Provider [phone] Encounter Details Date Type Department Care Team (Late st Contact Info) Description 10/12/2020 Notes Only Hematology [place] [address] Social History Tobacco Use [...] Progress Notes * Aurelia Negrete RD - 10/12/2020 10:55 AM EDT Hi, her serum Vitamin A level is low ??32.5 - 78.0 mcg/dL 31.9 Low ?? Recommend that she supplements with 10,000 units Vitamin A three times daily for four weeks. (30,000 units/D). Linda started supplemental Vitamin A on October 10. She will take 30,000 units/D for four weeks and she will ask her PCP to recheck serum Vitamin A two weeks after discontinuing Vitamin A. documented in this encounter Plan of Treatment Upcoming Encounters Date Type Department Care Team (Late st Contact Info) Description 11/02/2023 1:00 PM EDT Office Visit Hematology/Oncology at [address] [phone] Mary Nails APRN [address] [place] [address] MEDICAL ONCOLOGY [place], [place] [id number] 11/02/2023 1:30 PM EDT Infusion Hematology Oncology at [address] [phone] documented as of this encounter Visit Diagnoses Not on filedocumented in this encounter Care Teams Assistant Spa Manager Relationship Specialty Start Date End Date Zeny James APRN [address] [place] [address] PCP - General Family Medicine 09/23/19 documented as of this encounter
--- OUTSIDE RECORDS SUMMARY | 2023-11-02 02:30 | XMS_ITS | Encounter Summary ---
Author Organization [facility] [place] [address] Care Team Providers Care Low Voltage Electrician Name Role Phone Zeny James APRN Primary Care Provider Reason for Visit * Auth/Cert Specialty Diagnoses / Procedures Referred By Nir t Referred To Contact Diagnoses IPMN Procedures PRO PART REMV PANC, PROX+PART DUOD+ANAST @PANCREATECTOMY, WHIPPLE TYPE WITH PANCREATOJEJUNOSTOMY (WRVU 52.79) MODIFIER ROBOT,DAVINCI XI Referral ID Status Reason Start Date Expiration Date Visits Re quested Visits Authorized [id number] 1 1 Encounter Details Date Type Department Care Team (Late st Contact Info) Description 04/02/2020 3:16 PM EST Anesthesia Event [place] [address] Raimundo Murrieta MD [facility] [place] [address] Joy Gallardo MD [facility] [place] [address] Anesthesia Record Procedure Summary Procedure Name Responsible Anesthesiologist Anesthesia Start Time Anesthesia Stop Time EGD, UPPER GI ENDOSCOPY (WRVU 2.09) (Trunk) Raimundo Murrieta MD 04/02/20 1516 04/02/20 1607 Events Date Time Event Comment 04/02/2020 1516 AN Verify 1516 Start 1516 An Start Data 1521 An Induction 1527 An Intubation 1529 Anesthesia Ready 1603 Extubation/LMA Out 1604 an stop data 1606 Recovery or ICU Handoff Alexandra ent care was transferred to the destination unit staff after review of the patient's medical history, current anesthetic/surgical status and plan, according to the Provider Handoff Checklist. 1607 Stop 1733 Meds Name Total IV Lidocaine 40 mg Propofol 150 mg Propofol INF 269.7 mg Ondansetron 4 mg Succinylcholine 100 mg Lactated Ringers 400 mL * Agents Name O2 Air N2O Sevoflurane (et) * Blood No blood administrations on file. Lines, Drains, and Airways Type Details Placement Removal Drain/Device Site 12/20/19; 1301; Left ; breast; other (see comments) (19 fr Darius drain to bulb suction); Miguel 12/20/19 1301 by Aurelia Morrell RN Incision 12/20/19; 1218; carlos alberto st; 12/13/21 (LDA cleanup utility RA#[id number]); 1715 (LDA cleanup utility RA#[id number]) 12/20/19 1218 by Aurelia Morrell RN 12/13/21 1715 by Antonio Cortes Incision 03/23/20; 0834; abdo men; laparoscopic punctures (specify) (multiple trocar sites.); 12/13/21 (LDA cleanup utility RA#[id number]); 1715 (LDA cleanup utility RA#[id number]) 03/23/20 0834 by Alice Price RN 12/13/21 1715 by Antonio Cortes (RETIRED) PICC Line - Double Lumen 03/24/20; 1657; basilic vein (medial side of arm), left; pressure injectable catheter, open-ended catheter, lot number (specify) ([id number]); 5 Fr; 39 cm; placement verified by x-ray; Roseanne KELLEY RN VAS; distraction, intradermal injection, appears comfortable, tolerated well; no longer indicated, site care per policy/procedure, catheter/device intact, removed per policy/procedure; 04/10/20; 1156 03/24/20 1657 by Byron Kelley RN 04/10/20 1156 by Chalino Alfaro RN NG/OG Tube 04/01/20; 1700; nasogastric; 14 Fr; right nostril; lidocaine gel; stomach; gastric decompression; 58; Taped; 1; placed by MD Carolina at bedside; removed by MD carolina; 04/06/20; 0730 04/01/20 1700 by Sanjuanita Mercado RN 04/06/20 0730 by Maria Esther Blancas RN ETT Mask Ventilation: No t Attempted (0); ETT Type: Cuffed, Oral; ETT Size: 7 mm; Mac Blade: 3; Notes: Pre-O2, RSI, Cricoid Pressure, Stylette, Asleep; Attempts: 1; Laryngoscopy Grade: 1; ETT Placement Verified By: Auscultation, Capnometry; Secured at Teeth: 18 cm; Inserted by: Kari; Removal Date: 04/02/20; Removal Time: 1603 04/02/20 1527 by Patti Casanova 04/02/20 1603 by Patti Casanova documented in this encounter Social History Tobacco Use Types Packs/Day Years Used Date Smoking Tobacco: Never Smokeless Tobacco: Never Alcohol Use Standard Drinks/Week Comments Not Currently 0 (1 standard drink = 0.6 oz pur e alcohol) Sex and Gender Information Value Date Recorded Sex Assigned at Not on file Gender Identity Not on file Sexual Orientation Not on file documented as of this encounter OR Notes * Anesthesia Postprocedure Evaluation - Raimundo Murrieta MD - 04/02/2020 5:33 PM EST Department of Anesthesiology Post-procedure Note Patient: Linda Serrano Procedure Summary Date: 04/02/20 Room / Location: [facility] ENDO 3 / [facility] ENDOSCOPY Anesthesia Start: 151 Anesthesia Stop: 160 Procedure: EGD, UPPER GI ENDOSCOPY (N/A Trunk) Diagnosis: (Post Whipple) Surgeon: Ralf Urrutia MD Responsible Provider: Raimundo Murrieta MD Anesthesia Type: general ASA Status: 4 All Anesthesia Providers: Anesthesiologist: Raimundo Murrieta MD [facility]: Kenia Aponte CRNA Student Nurse Equal Opportunity Officer: Patti Casanova Vitals Value Taken Time BP 175/75 04/02/20 1650 Temp Pulse Resp 17 04/02/20 1620 SpO2 96 % 04/02/20 1658 Pain Level 0 04/02/20 1620 Vitals shown include unvalidated device data. Patient Location: PACU/SDP Level of Consciousness: Awake and Alert Pain Management: Satisfactory Analgesia PONV: None Cardiovascular Status: At Baseline Respiratory Status: At Baseline Postoperative Fluid Status: Intravascular EUvolemia Possible Anesthetic Complications: NONE apparent at time of evaluation Final Primary Anesthesia Type: General (The anesthetic type performed was the same as planned.) Comments: * Anesthesia Preprocedure Evaluation - Raimundo Murrieta MD - 04/02/2020 2:15 PM EST Pre-Anesthesia Evaluation for: Linda Serrano a 74 y.o. female. Procedure(s): EGD, UPPER GI ENDOSCOPY Patient Active Problem List Diagnosis ??? IPMN (intraductal papillary mucinous neoplasm) ??? Gastroparesis ??? Pre-diabetes ??? Malignant neoplasm of left breast in female, estrogen receptor positive [place] [facility] [place] AK (actinic keratosis) ??? Seborrheic dermatitis ??? Nevus ??? SK (seborrheic keratosis) ??? Solar lentigo ??? Seborrheic keratosis ??? Multiple pigmented nevi ??? CIS - Entered not Verified ??? CIS - Healthcare Maintenance ??? CIS - Hypertension ??? CIS - Myalgias ??? CIS - R breast cancer Mid : [...] specimens had focally suggestive angiolymphatic invasion. ER-pos; AK-neg; HER2=2+. 02/06/01: R MRM/ax dissection. On path, [...] b/o same side effects after 4 months. Past Medical History: Diagnosis Date ??? Basal cell carcinoma 2009 [facility]-back ??? Breast cancer ??? Pre-diabetes 03/30/2020 Past Surgical History: Procedure Laterality Date ??? CREATED BY INTERFACE BREAST BIOPSY / RT/MULTIPLE Procedure Date: 01/23/2001 ??? CREATED BY INTERFACE COLONOSCOPY (ENDO) Procedure Date: 12/24/2003 ??? CREATED BY INTERFACE Entered not Verified Procedure Date: 01/22/2010 ??? CREATED BY INTERFACE MODIFIED RADICAL MASTECTOMY / RT Procedure Date: 02/06/2001 ??? MAMMO STEREOTACTIC BIOPSY LEFT N/A 12/05/2019 Mammo Stereotactic Biopsy Left 12/05/2019 [facility] RAD MAMMOGRAPHY ??? MASTECTOMY Right with RT ??? PRO BX/REMV, LYMPH NODE, DEEP AXILL Left 12/20/2019 BIOPSY OR EXCISION OF LYMPH NODE(S), OPEN, DEEP AXILLARY NODE(S) (WRVU 6.43) performed by Susan Rivera MD at [facility] OSC ??? PRO COLONOSCOPY, DIAGNOSTIC 01/07/2014 COLONOSCOPY, DIAGNOSTIC performed by Izzy Johnson MD at [facility] ENDOSCOPY ??? PRO ENDOSCOPIC US EXAM, ESOPH N/A 11/15/2019 UPPER EUS- ENDOSCOPIC ULTRASOUND performed by Ralf Urrutia MD at [facility] ENDOSCOPY ??? PRO INTRAOP SENTINEL LYMPH ID W/DYE INJECTION Left 12/20/2019 INTRAOPERATIVE ID (MAPPING) SENTINEL LYMPH NODE,INCLUDES INJECTION (WRVU 2.5) performed by Susan Rivera MD at [facility] OSC ??? PRO MASTECTOMY, SIMPLE, COMPLETE Left 12/20/2019 MASTECTOMY, SIMPLE, COMPLETE (WRVU 15.85) performed by Susan Rivera MD at [facility] OSC ??? PRO OMENTAL FLAP, INTRA-ABDOMINAL 03/23/2020 @OMENTAL FLAP, INTRA-ABDOMINAL (WRVU 6.54) performed by Regino Carolina MD at [facility] MAIN OR ??? PRO UNLISTED PX PNCRS N/A 03/23/2020 ROBOTIC PANCREATECTOMY,WHIPPLE, PARTIAL GASTRECTOMY W/ PANCREATOJEJUNOSTOMY performed by Regino Carolina MD at [facility] MAIN OR Social History Tobacco Use ??? Smoking status: Never Smoker ??? Smokeless tobacco: Never Used Substance Use Topics ??? Alcohol use: Not Currently Comment: socially, 1-2 wine a month Social History Substance and Sexual Activity Drug Use Never Allergies Allergen Reactions ??? House Dust Medications: MAR and/or home medications have been reviewed. Physical Exam: Patient Vitals for the past 24 hrs: Temp Heart Rate From SP02 Pulse Resp BP SpO2 O2 Flow Rate (L/min) O2 Device 04/01/20 1533 37.3 ??C (99.1 ??F) (!) 119 bpm 98 17 (!) 151/91 93 % -- RA 04/01/20 1945 37.6 ??C (99.7 ??F) (!) 113 bpm (!) 113 18 126/79 (!) 88 % -- RA 04/02/20 0011 37.4 ??C (99.3 ??F) 98 bpm 98 14 135/79 97 % 2 L/min NC 04/02/20 0415 36.8 ??C (98.2 ??F) 92 bpm -- 16 112/68 97 % 2 L/min NC 04/02/20 0806 36.9 ??C (98.4 ??F) 86 bpm -- 16 148/76 91 % -- RA 04/02/20 1210 36.6 ??C (97.9 ??F) -- -- -- -- -- -- -- 04/02/20 1222 -- 84 bpm -- 16 159/89 94 % -- RA 04/02/20 1340 -- -- -- -- -- -- -- RA Body mass index is 21.5 kg/m??. Height: 157.5 cm (5' 2.01) Weight: 53.3 kg (117 lb 9.6 oz) Airway Assessment: Mallampati: III TM distance: >3 FB Neck ROM: full Cardiovascular Assessment: system normal Pulmonary Assessment: pulmonary exam normal Dental Assessment: Misc Assessment: IV access: Peripheral line Anesthesia Plan: ASA 4 general, with a(n) intravenous induction 74 year old female with a PMH significant for pancreatic cancer (s/p whipple 10 days ago), HTN, breast cancer, pre-diabetes, gastroparesis who has ongoing nausea/vomiting since surgery. Presents for EGD. Previous record reviewed. Intubated without difficulty Plan: GETA/ RSI Region - Other Informed Consent: Anesthetic plan and risks discussed with patient. Plan discussed with [facility]. PAT Clinic Note documented in this encounter Plan of Treatment Upcoming Encounters Date Type Department Care Team (Late st Contact Info) Description 11/02/2023 1:00 PM EDT Office Visit Hematology/Oncology at [address] [phone] Mary Nails APRN [address] [place] [address] DR [facility]ICAL ONCOLOGY [place], [place] [id number] 11/02/2023 1:30 PM EDT Infusion Hematology Oncology at [address] [phone] documented as of this encounter Visit Diagnoses Not on filedocumented in this encounter Administered Medications Inactive Administered Medications - up to 3 most recent administrations Medication Order MAR Action Action Date Dose Rate Site lactated ringers infusion CONTINUOUS PRN, Starting on Pamella 04/02/20 at 1516, Until Pamella 04/02/20 at 1607, Anesthesia Intra-op New Bag 04/02/2020 3:16 PM EST lidocaine (pf) (Xylocaine) (20 mg/mL) 2% injection syringe PRN, Starting on Pamella 04/02/20 at 1521, Until Pamella 04/02/20 at 1607, Anesthesia Intra-op, Routine Given 04/02/2020 3:21 PM EST 40 mg ondansetron (pf) (Zofran) (2 mg/mL) injection PRN, Starting on Pamella 04/02/20 at 1600, Until Pamella 04/02/20 at 1613, Anesthesia Intra-op, Routine Given 04/02/2020 4:00 PM EST 4 mg propofoL (Diprivan) 10 mg/mL bolus injection (Anesthesia) PRN, Starting on Pamella 04/02/20 at 1525, Until Pamella 04/02/20 at 1607, Anesthesia Intra-op Given 04/02/2020 3:40 PM EST 20 mg Given 04/02/2020 3:35 PM EST 30 mg Given 04/02/2020 3:25 PM EST 100 mg propofoL (Diprivan) infusion CONTINUOUS PRN, Starting on Pamella 04/02/20 at 1527, Until Pamella 04/02/20 at 1607, Anesthesia Intra-op, Routine Rate/Dose Change 04/02/2020 3:53 PM EST 30 mcg/kg/min 9.6 mL/hr Rate/Dose Change 04/02/2020 3:34 PM EST 200 mcg/kg/min 64 mL/hr New Bag 04/02/2020 3:27 PM EST 150 mcg/kg/min 48 mL/hr succinylcholine (Anectine;Quelicin) (20 mg/mL) injection PRN, Starting on Pamella 04/02/20 at 1526, Until Pamella 04/02/20 at 1607, Anesthesia Intra-op, Routine Given 04/02/2020 3:26 PM EST 100 mg documented in this encounter Care Teams Low Voltage Electrician Relationship Specialty Start Date End Date Jairosheree ZenyJESUS ALBERTO noriega [address] [place] [address] PCP - General Family Medicine 09/23/19 documented as of this encounter
--- OUTSIDE RECORDS SUMMARY | 2023-11-02 02:30 | XMS_ITS | Encounter Summary ---
Author Organization [facility] [place] [address] Care Team Providers Care Bulk Driver Name Role Phone Zeny James APRN Primary Care Provider [phone] Reason for Referral * Consultation (Routine) - Closed Specialty Diagnoses / Procedures Referred By Nir potts Referred To Contact Endocrinology Diagnoses Pre-diabetes Larry Longo MD [facility] [place] [address] [facility] [address] [place] [address] Referral ID Status Reason Start Date Expiration Date V isits Requested Visits Authorized [id number] Closed Specialty Service Requested 04/11/2020 04/11/2021 1 1 Reason for Visit * Auth/Cert Specialty Diagnoses / Procedures Referred By Nir potts Referred To Contact Diagnoses IPMN Procedures PRO PART REMV PANC, PROX+PART DUOD+ANAST @PANCREATECTOMY, WHIPPLE TYPE WITH PANCREATOJEJUNOSTOMY (WRVU 52.79) MODIFIER ROBOT,DAVINCI XI Referral ID Status Reason Start Date Expiration Date Visits Re quested Visits Authorized [id number] 1 1 Encounter Details Date Type Department Care Team (Late st Contact Info) Description 03/23/2020 5:51 AM EST - 04/11/2020 4:19 PM EST Hospital Encounter [address] [place] [phone] Davian Carolina MD [facility] [place] [address] IPMN (intraductal papillary mucinous neoplasm); Pre-diabetes Discharge Disposition: Home with VNA Social History Tobacco Use Types Packs/Day Years [...] Sign Reading Time Taken Comments Blood Pressure 159/96 04/11/2020 11:36 AM EST Pulse 87 04/10/2020 8:13 AM EST Temperature 37.1 ??C (98.8 ??F) 04/11/2020 11:[address] Respiratory Rate 16 04/11/2020 11:36 AM EST Oxygen Saturation 91% 04/11/2020 8:10 AM EST Inhaled Oxygen Concentration - - Weight 53.3 kg (117 lb 9.6 oz) 03/27/2020 5:51 P M EST Height 157.5 cm (5' 2.01) 03/27/2020 5:51 PM ES T Body Mass Index 21.5 03/27/2020 5:51 PM EST documented in this encounter Discharge Summaries * Larry Longo MD - 04/11/2020 10:38 AM EST Images from the original note were not included. General Surgery Inpatient - Discharge Summary Patient Name: Linda Abel Patient Age: 74 y.o. Birthdate: 1945 Admit date: 03/23/2020 Discharge date: 04/11/20 Admitting Physician: Dr. Davian Carolina Primary Diagnosis: IPMN (intraductal papillary mucinous neoplasm) Secondary Diagnosis: Active Hospital Problems Diagnosis ??? IPMN (intraductal papillary mucinous neoplasm) ??? Gastroparesis ??? Pre-diabetes Resolved Hospital Problems No resolved problems to display. Active Non-Hospital Problems Diagnosis ??? Malignant neoplasm of left breast in female, estrogen receptor positive ??? AK (actinic keratosis) ??? Seborrheic dermatitis ??? Nevus ??? SK (seborrheic keratosis) ??? Solar lentigo ??? Seborrheic keratosis ??? Multiple pigmented nevi ??? CIS - Entered not Verified ??? CIS - Healthcare Maintenance ??? CIS - Hypertension ??? CIS - Myalgias ??? CIS - R breast cancer HPI: Obtained from Dr. Davian Carolina's Office Visit Note dated 01/28/2020. 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 ?? History of the present illness: Ms. Abel is a 74 year woman from [place], [place]. She [facility] ED on 2019 with epigastric abdominal pain x1 day and anorexia symptoms. Blood work showed a normal white blood cell count of 11.7, hemoglobin 14.7, platelet 311. LFTs were all normal-albumin 4.2, total bilirubin 0.8, alkaline phosphatase 90, AST 29, ALT 38 and serum lipase was 164 (normal less than 393). Further work-up is detailed below. ?? 2019 ultrasound showed a normal gallbladder with no stones or gallbladder wall thickening. CBDwas normal diameter. ?? 2019 CT abdomen and pelvis showed a markedly dilated pancreatic duct but no obvious pancreaticmass. The bile duct was not dilated. ?? She was admitted to the hospitalist service with a diagnosis of chronic pancreatitis and surgery was consulted with a plan to obtain an MRCP. ?? 10/01/2019 MRA/MRCP showed exam is limited by [...] are not dilated. No gallstones are seen. ?? 11/15/[address] Urrutia with endosonographic findings reviewed below: ?? The pancreatic duct was diffusely dilated measuring??up to 12 mm and transitioned to a less dilated caliber in the pancreatic head without definite stricture.??Diagnostic needle aspiration for fluidwas performed. Color Doppler imaging was utilized prior to needle puncture to confirm a lack of significant vascular structures within the needle path. One pass was made with the 25 gauge needle using a transduodenal approach. A stylet was used. The amount of fluid collected was 5 mL. The fluid wasclear. Sample(s) were sent for amylase concentration, cytology and CEA. There was no sign of significant endosonographic abnormality in the common bile duct. The maximum diameter of the duct was 6 mm. Minimal debris in the gallbladder body. ? Impression: Endosonographic findings compatible with main duct IPMN; ERCP deferred; fluid sent for analysis. 11/15/2019 EUS/FNA of pancreatic duct/cyst fluid cytopathology per Acc# [id number] showed neoplastic Cells Present. Abundant macrophages, mixed leukocytes present and a single group of bland-appearing columnar cells. ??Cell block was examined. Note: The fluid CEA level is consistent with neoplastic process. ?? 11/25/2019 surgical oncology consult. Maricruz was seen for surgery consultation. She was by herself. She described the episode that brought her to the ED at [facility] as the first time she [...] time of day or positional changes. She has no prior history of pancreatitis. She does not have diabetes. Her normal weight is 125 pounds and she is lost about 10 pounds over the past several months and currently weighs 115 pounds. She describes having no interestin food and some early satiety symptoms but no nausea. She has 1 bowel movement a day but it is soft and sometimes diarrhea like. Operations/Major Procedures: Operations: 03/23/2020 Surgeon(s) and Role: * Davian Carolina MD - Primary: Procedure(s): ROBOTIC PANCREATECTOMY,WHIPPLE, PARTIAL GASTRECTOMY W/ PANCREATOJEJUNOSTOMY MODIFIER ROBOT,MALLORYI XI @OMENTAL FLAP, INTRA-ABDOMINAL (WRVU 6.54) Operative Findings: No metastatic disease. The liver was healthy appearing. The resection was complicated by ergonomic issues given her small size and limited space within the abdomen- this made the resection and reconstruction take longer given instrument limited range of motion. Otherwise the case went well- minimal blood loss. The pancreatic duct measured 1.5 cm and the bile duct though was edward te small - only 5-6 mm. After completion of the resection and as we were preparing for the reconstruction it appeared that the common hepatic or proper hepatic artery had what looked like purple discoloration and some aneurysmal dilation extending up into a branch that looked like the right hepaticartery. Her completely replaced right hepatic artery though was nicely palpable. It was unclear whether this was just some tracking of blood along the arterial adventitia or some type of dissection? We spent quite a lot of time watching this and looking at the viability/color of the liver and it appeared completely unchanged throughout the remainder of the case. Reconstruction was an intracoporalretromesenteric and decide (Blumgart type) duct to mucosa pancreaticojejunostomy. The pancreatic duct was so massively dilated that we could not stent it. The bile duct anastomosis however was somewhat difficult and that it was so tiny and required an interrupted Blumgart-Debra type hepaticojejunostomy with 5-0 PDS. Intestinal continuity was restored by bringing the proximal jejunal limb up as a retrocolic/transmesenteric side to side (Billroth II type) handsewn gastrojejunostomy anastomosis. Final inspection at the end of the case revealed excellent hemostasis and the liver really looked completely normal and there was no areas of demarcation. Hospital Course: Linda Abel was taken to the operating room where the above procedures were performed. She tolerated the operation well and without complication. She was admitted post-operatively for clinical monitoring and further management. The patient's hospital course was uncomplicated and she was deemed stable for discharge on post-operative day 19. Hospital Course: POD 0 03/23: To OR [...] SBP<150 POD 04/11: PICC rewired, ROEL. discharged Important Studies and Lab Data: See below. Pathology: Final Surgical Pathology pending. Microbiology: - C. Diff negative - Urinalysis - Culture not Reflexed (03/25) - Bile Cx negative Component Value Date/Time SPGRAVITYUA 1.025 04/03/2020 1422 PHUADIP 6.0 04/03/2020 1422 PROTEINUADIP 30 (A) 04/03/2020 1422 GLUCOSEU Negative 04/03/2020 1422 KETONESUA 40 (A) 04/03/2020 1422 UROBILIUADIP Normal 04/03/2020 1422 BLOODUADIP Negative 04/03/2020 1422 NITRATEUA Negative 04/03/2020 1422 LEUKOESTERUA Negative 04/03/2020 1422 WBCUA 6 (H) 04/03/2020 1422 BILIRUBINUA Negative 04/03/2020 1422 Body Fluid Culture, Aerobic & Anaerobic Bile (03/23): No growth on Culture. Neutrophils, but no microorganisms seen on Gram Stain. No anaerobic organisms isolated. Labs: Lab Results Component Value Date WBC 13.2 (H) 04/11/2020 HGB 9.7 (L) 04/11/2020 HCT 29.4 (L) 04/11/2020 MCV 91.3 04/11/2020 PLATELET 371 (H) 04/11/2020 Lab Results Component Value Date NA 130 (L) 04/11/2020 K 4.3 04/11/2020 CL 99 04/11/2020 CO2 25 04/11/2020 BUN 15 04/11/2020 CREATININE 0.34 (L) 04/11/2020 GLUCOSE 165 04/11/2020 GLUCFASTING 112 (H) 04/01/2020 CALCIUM 7.7 (L) 04/11/2020 ESTGFR 109 04/11/2020 Lab Results Component Value Date ALT 160 (H) 03/27/2020 AST 77 (H) 03/27/2020 ALKPHOS 58 03/27/2020 BILITOT 0.4 03/27/2020 ALBUMIN 3.2 03/27/2020 PROT 5.4 (L) 03/27/2020 KHRIS Fluid Data: ?? Date, POD # KHRIS Amylase Level 24 Hour Vol (ml) 03/24, POD 1 26 170 12/9, POD 2 22 200 12/10, POD 3 15 320 /11, POD 4 327 250 12, POD 5 12 80 ?? Pending Lab Data at Discharge: Final Surgical Pathology pending. Studies: CT Angiogram Abdomen w Contrast (03/26): IMPRESSION 1. Normal appearance of celiac axis and its branches. No evidence of aneurysm or pseudoaneurysm. 2. Post Whipple procedure with expected postoperative changes. 3. Bilateral pleural effusions with LEFT basilar focal atelectasis XR PICC Placement Over 5 Years with Imaging Guidance (IV Team) (03/24): IMPRESSION Left-sided PICC with tip at the lower SVC. Discharge Exam: Last value Range last 12 hrs Temperature Temp: 37.1 ??C (98.8 ??F) Temp: [37.1 ??C (98.8 ??F)] Heart Rate Heart Rate: 87 Heart Rate: -- Blood Pressure BP: (!) 159/96 BP: (142-159)/(88-96) Respiratory Rate Resp: 16 Resp: [16] SpO2 SpO2: 91 % SpO2: [91 %] I/Os: I/O last 3 completed shifts: In: 1966.8 [P.O.:360] Out: 2950 [Urine:2950] I/O this shift: In: 520 [P.O.:236] Out: 900 [Urine:400; Other:500] Gen: NAD, alert & oriented x3 Pulm: CTAB, no crackles/wheezes Card: RRR, no m/r/g Abd: Non-distended, soft, appropriately tender. Wound: incision clean, dry, intact, no purulent drainage Ext: no edema, 2+ peripheral pulses Discharge Plans: - discharge home with VNA - TPN to be transitioned to cycled, 18hr x2 days, then 12 hours. 8 units of regular insulin to be administered into TPN bag nightly, referral to endo placed - FLD for comfort only, continue creon - BID PPI - coreg BID per medicine recs for HTN as HCTZ was d/c'd for hyponatremia, will follow up with PCP next week - follow up endo referral Discharge to: Home VNA: Yes Name of facility: [facility]. Contact information: PHONE: [phone] Discharge Conditions/Prognosis: Stable Discharge Medications: The following medications have been prescribed for you. If you notice any adverse reactions to your medications, please contact your primary care physician immediately or go tothe nearest Emergency Department. Your Medications New Medications Dose Details acetaminophen 500 mg Tab Commonly known as: Tylenol Take 2 tablets by mouth every 6 hours as needed for Pain. 1,000 mg Refills: 0 Blood-Glucose Meter Misc 1 Application by Misc.(Non-Drug; Combo Route) route 3 times daily (before meals). 1 Application Quantity: 1 each Refills: 0 carvediloL 3.125 mg Tab Commonly known as: Coreg Take 1 tablet by mouth 2 times daily (with meals). 3.125 mg Quantity: 60 tablet Refills: 3 HYDROmorphone 2 mg Tab Commonly known as: Dilaudid Take 1 tablet by mouth every 6 hours as needed for Pain. 2 mg Quantity: 10 tablet Refills: 0 Insulin Syringe-Needle U-100 0.3 mL 31 gauge x 5/16 Syrg 1 each by Misc.(Non-Drug; Combo Route) route nightly. 1 each Quantity: 30 Syringe Refills: 11 lancets 33 gauge Misc 1 each by Misc.(Non-Drug; Combo Route) route 3 times daily (before meals). 1 each Quantity: 100 each Refills: 11 metoclopramide 10 mg Tab Commonly known as: Reglan Take 1 tablet by mouth 4 times daily for 14 days. 10 mg Quantity: 56 tablet Refills: 0 novoLIN R Soln Add 8 units to TPN bag every night Generic drug: insulin regular human Quantity: 10 mL Refills: 12 pantoprazole EC 40 mg Tbec Commonly known as: Protonix Take 1 tablet by mouth 2 times daily. 40 mg Quantity: 90 tablet Refills: 3 senna-docusate 8.6-50 mg Tab Commonly known as: Pericolace Take 2 tablets by mouth 2 times daily. 2 tablet Quantity: 60 tablet Refills: 11 TPN FOR DISCHARGE Inject into the vein. The TPN formula will print on the Discharge Summary Report. Quantity: 1 each Refills: NO Continued medications with new dosing Dose Details * kyqcry-npgterhi-pyhdier 24,000-76,000 -120,000 unit Cpdr Commonly known as: Creon Take 1-2 capsules by mouth 3 times daily (with meals). With Meals: Take 1-2 capsules by mouth. WithSnacks: Take 1 capsule by mouth. What changed: See the new instructions. 1-2 capsule Quantity: 270 capsule Refills: 3 * wxltuw-ygltizxf-mpafsqx DR 24,000-76,000 -120,000 unit Cpdr Commonly known as: Creon 24 Take 2 capsules by mouth 3 times daily (with meals) for 30 days. What changed: You were already taking a medication with the same name, and this prescription was added. Make sure you understand how and when to take each. 2 capsule Quantity: 180 capsule Refills: 11 vitamin E 400 unit Cap Take 1 capsule by mouth daily. What changed: See the new instructions. 400 Units Refills: 0 * This list has 2 medication(s) that are the same as other medications prescribed for you. Read thedirections carefully, and ask your doctor or other care provider to review them with you. Continued medications, unchanged Dose Details albuteroL 90 mcg/actuation Hfaa Inhale 1-2 puffs into the lungs every 4 hours as needed. 1-2 puff Refills: 0 anastrozole 1 mg Tab Commonly known as: Arimidex Take 1 tablet by mouth daily. Start mid January 2020. 1 mg Quantity: 90 tablet Refills: 3 aspirin EC 81 mg Tbec Take 81 mg by mouth daily. 81 mg Refills: 0 b complex vitamins Cap Take 1 capsule by mouth daily. 1 capsule Refills: 0 CALCIUM CARBONATE-VITAMIN D3 ORAL Take 1 tablet by mouth daily. 1 tablet Refills: 0 CENTRUM SILVER ULTRA WOMEN'S ORAL Take 1 tablet by mouth daily. 1 tablet Refills: 0 cholecalciferol (Vitamin D3) 25 mcg (1,000 unit) Cap Take 1,000 Units by mouth daily. 1,000 Units Refills: 0 fish oil-omega-3 fatty acids 1,000 mg Cap Take 1 g by mouth daily. 1 g Refills: 0 fluticasone propionate 50 mcg/actuation Spsn Commonly known as: FLONASE 1 spray by Each Nare route daily as needed. 1 spray Refills: 0 magnesium oxide 400 mg magnesium Cap Take 1 capsule by mouth daily. 1 capsule Refills: 0 pravastatin 20 mg Tab Commonly known as: Pravachol Take 20 mg by mouth daily. 20 mg Refills: 0 Wixela Inhub 500-50 mcg/dose Dsdv Inhale 1 puff into the lungs 2 times daily. Generic drug: fluticasone propion-salmeteroL 1 puff Refills: 0 STOPPED Medications omeprazole 20 mg Cpdr Commonly known as: PriLOSEC Updated Allergies/ADRs: Allergies Allergen Reactions ??? House Dust Scheduled Appointments: Future Appointments Date Time Provider Department Center 04/21/2020 1:30 PM LAB, THREE L Lab 3L [facility] [place] 04/21/2020 2:30 PM Davian Carolina MD [facility] 04/21/2020 2:[address] [facility] Outpatient Services/Studies: CBC (with Diff) Standing Status: Future Standing Exp. Date: 03/31/21 Comprehensive metabolic panel (non-fasting) Standing Status: Future Standing Exp. Date: 03/31/21 Prealbumin Standing Status: Future Standing Exp. Date: 10/21/20 Referral to Endocrinology Referral Priority: Routine Referral Type: Consultation Referral Reason: Specialty Service Requested Number of Visits Requested: 1 Referral to Home Health - at DISCHARGE Order Comments: DOCUMENTATION FOR VNA SERVICES (INCLUDING THOSE PATIENTS WITH MEDICARE COVERAGE REQUIRING HOME VNA SERVICES AND/OR HOSPICE SERVICES) PATIENT'S LOCATION: Linda Abel [address] [place] [id number] [place] [phone] Timber Sizer's Name: self In discussion with the attending physician, it is certified that this patient is under their care and that they, or a Nurse Practitioner,Clinical Nurse specialist or Physician Homemaker Companion who is working directly with them, had a face to face encounter that meets the physician face to face encounter requirements with this patient on 03/31/2020 The encounter with the patient was in whole, or in part, for the following medical condition, whichis the primary reason for home health care services: IPMN In discussion with the provider, it is certified that, based on their findings, the following services are medically necessary for home health services. To provide the following care/treatments with the clinical findings supporting the need for services as follows: HOME CARE ORDERS: RN ORDERS: Assess wound or incision, vital signs, cardiopulmonary status, nutrition, hydration, elimination, meds effectiveness and management; reinforce education re health issues. Reinforce B/P andblood sugar monitoring. HOME HEALTH CARE AGENCY: [facility]. PHONE: [phone] FAX: [phone] Start of care: 24-48hrs after discharge FOR MEDICARE ONLY: In discussion with the attending physician, it is certified that the clinical findings support thatthis patient is homebound because absences from home require considerable and taxing effort due to:Unsteady Gait, poor balance , requiring assistive devices and/or assistance of another Please note that any additional orders needs or changes will need to be obtained from this patient's PCP: Zeny James, MEAL COOKER [address] / [facility] [id number] All VNA agencies which cover the area of patient's residence have been reviewed, either verbally kehinde writing, and patient/family have chosen the home health care agency noted Question Response Notes Agency name and contact information [facility] Patient location post discharge Home What services are requested Registered Nurse Start date 04/01/2020 Responsible MD post discharge contact info PCP and Dr. Carolina Referral for Home TPN Order Comments: Adult Home TPN Orders: Home infusion company: Linda Abel [address] [facility] [id number] DAVIAN CAROLINA Diagnosis requiring TPN: IPMN Diabetic: Yes Allergies: -- House Dust Ht/Wt/VS: Blood pressure (!) 159/96, pulse 87, temperature 37.1 ??C (98.8 ??F), temperature source Oral, resp. rate 16, height 157.5 cm (5' 2.01), weight 53.3 kg (117 lb 9.6 oz), SpO2 91 %. IV Access Type: PICC Date placed & correct position confirmed by Radiologist: yes 04/10/2020 PHYSICIAN'S ORDERS - to be completed by provider*. TPN Orders(MUST INCLUDE COMPONENTS eg RECIPE) (see nutrition recommendations) One hour taper up and one hour taper down Lab Orders: Q weekly, CBC with differential, comprehensive metabolic profile, prealbumin, magnesium, phosphorus, triglycerides. IV Catheter Maintenance per protocol (*see below): Yes If No, Maintain Catheter as follows: (please review flushes and adjust as clinically indicated) Adult CVC / PICC: Flush protocol with medication infusion (SASH) Before TPN:10ml saline flush After TPN: 20ml saline flush then 5ml 10 Units/ml heparin flush Additional Lumens: Flush daily with 5ml heparin 10unit/ml; NS 10ml/prn Flush without TPN (each lumen): 5ml heparin 10unit/ml daily; NS10ml/prn OR Adult Port: Flush protocol with medication infusion (SASH) Before TPN: 10ml saline flush After TPN: 20ml saline flush then 3ml 100u/ml heparin flush Access port with non-coring needle weekly and prn Flush without TPN (each lumen): Q month and prn: Flush with 10 mls NS and 5 mls heparin 100 units/ml. Sterile Dressing and injection port change: Weekly/PRN Catheter Occlusion Management: Instill reconstituted CathFlo up to 2mg per instillation based on the volume of the catheter lumen; may repeat X1 per occlusion incident. Question Response Notes Vendor / contact information [place] Patient location post discharge home Service requested TPN Instructions Given to Patient at Discharge:. An After Visit Summary was printed and given to the patient. Patient Instructions [facility] Department of General Surgery Discharge Instructions CALL YOUR PHYSICIAN'S OFFICE IF: ??? You have a fever greater than 101 degrees Farenheit (38.3C) within one month of your surgery. ? ? You have diarrhea or vomiting for >24 hours, stop having bowel movements and/or passing flatus, have pain with urination. ??? You have worsening pain, not controlled with your pain medication. ??? You develop redness, swelling, or new drainage from your wound. Medications: [x] Pain Control [x] Non-narcotic pain medication - We recommend Tylenol 1000mg every 6 hours as needed for pain. NO Ibuprofen / NSAID's due to bleeding / ulcer risk post-operatively. - Do not take more than 4,000mg (4g) of tylenol in 24hours. - Unfortunately, Lidoderm patches are not covered by insurance companies for the management of post-operative pain. Instead, we recommend using over the counter SalonPas patches which are a 4% Lidocaine patch and cost about $15 dollars for a box of 6 patches. [x] Narcotic pain medication - You have been prescribed 10 tablets of 2mg of dilaudid. This is a narcotic medication that has several side effects/warnings: 1. Constipation: Narcotics can cause severe constipation. Please take BOTH a stool softener and pro-motility/laxative agent whenever taking narcotics, unless otherwise advised. These are over the counter. (Stool Softeners: Colace, Surfak. Laxatives/Stimulants: Miralax, Milk of Magnesia, Senna, Bisacodyl). 2. Altered mental status: Narcotics can make you sleepy and have delayed reactions. Therefore, do not drive or operate any heavy machinery while taking narcotics. 3. Addictive: Narcotics are addictive. Please take as prescribed and wean down/decrease your dose as soon as you can tolerate. 4. Restricted: Narcotics are highly regulated. If you are running out of your prescription and feelyou will need more, plan ahead and call your Physician as these cannot be filled electronically or at night/over the weekend. Again, as your pain decreases, reduce your use of these medications. You do not need to use all of the pills provided. [x] Other Medication(s) - The remainder of your medications are listed in the first section of the After Visit Summary. - You will need to take a Proton Pump Inhibitor (such as Nexium, Protonix, Omeprazole, etc.) once daily for at least 1 year after your Whipple surgery to help prevent the development of marginal ulcers. - Please check your Blood pressures at different times each day and keep a log of this to bring to your appointment with your PCP. - Please check your Blood Sugars first thing in the mornings before eating on Mondays / Wednesdays / Fridays. Bring a log of your blood sugars to your appointment with your PCP. - New BP med carvedilol, please take as prescribed and follow up with your PCP Driving Restrictions: - No driving if you are too sore from surgery to enter or exit your vehicle comfortably, or if you are too sore to easily check your blind spot. No driving while using narcotic pain medications. Shower: - It is ok to shower. You can shower per usual routine and let soapy water run over your incision. Pat incision dry with a clean, dry towel. Do not submerge the wound under water (no swimming or soaking) for at least 6 weeks, or until approved by your surgeon. Diet: [x] You have been cleared for full liquid diet for comfort - You may find it easier to eat smaller, more frequent meals after your surgery. - You should eat your meals sitting upright in a chair to help with digestion after your surgery. - If you feel full after eating, that is a great time to get up and go for a walk as gravity will help your stomach empty. - You may benefit from Boost or Ensure shakes once or twice daily while at home to help with your nutrition. This is a great way to get the nutrients your body needs to heal after surgery, without having to take in a lot of volume. - You will receive all of your nutritional needs through TPN. TPN to be cycled for 18 hours for 2 days and then cycled for 12 hours going forward - Please place 8 units of regular insulin into your TPN bag every night Activity: - It is normal to feel tired after surgery/hospitalization. Be as active as tolerated as this will improve recovery and prevent blood clots. - You should avoid any heavy lifting for 4 weeks after surgery. A gallon of milk is a good estimateof the maximum you should be lifting while your wounds heal. -We recommend taking several slow, short walks each day for the first two weeks, and gradually increase your distance. We recommend at least 4 times a day. Wound/Incision Care: Closure: Your skin incision(s) are closed with: [x] Glue - There are sutures below the skin and the glue is the dressing. There is nothing to remove and the discoloration will go away in time. Infection: Observe for changes and alert the clinic if new/worsening redness or drainage. Things to avoid: Do not use creams, oils, or ointments on the wound. Keep wound open to air if it is not draining. Who to call? If you have concerns or questions: - During the day, it is best to call the [facility] to speak with the Surgery nurses. The number is [phone]. - During the night or weekends call the [facility] blind stitch machine operator at [phone] and ask to speak to the surgery resident cable television installer for general surgery. Please note: Your surgeon may not be Manufacturing Teacher, especially during the night or on weekends, so be ready to describe yourself and your surgery when you call. Follow up appointments: Future Appointments Date Time Provider Department Center 04/21/2020 1:30 PM IKE, [facility] L Lab 3[facility] 04/21/2020 2:30 PM Davian Carolina MD [facility] 04/21/2020 2:[address] [facility] [x] Follow-up appointment with General Surgery has already been scheduled [] A request for a follow-up appointment has been made and you should receive information via phone/mail in the next week. If you do not hear anything, please call the clinic at [phone] to confirm or reschedule. - A follow-up appointment has been made for you with your Primary Care Provider, Zeny James APRN, on Monday, April 13, 2020 at 10:40am. 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 Please bring a log of your blood pressures and your blood sugars to this appointment. If you need a prior authorization, please call the General Surgery Clinic nurses [phone] for prior authorizations assistance General Instructions Upper GI Endoscopy: What to Expect at Home Your Recovery You will be able to go home after your doctor or nurse checks to make sure you are not having any problems. You may have to stay overnight if you had treatment during the test. You may have a sore throat fora day or two after the test. This care sheet gives you a general idea about what to expect after the test. How can you care for yourself at home? Activity Rest when you feel tired. ?? You can do your normal activities when it feels okay to do so. Diet ?? Follow your doctor's directions for eating. ?? Unless your doctor has told you not to, drink plenty of fluids. This helps to replace the fluidsthat were lost during the prep. ?? Do not drink alcohol. Medicines ?? Your doctor will tell you if and when you can restart your medicines. He or she will also give you instructions about taking any new medicines. ?? If you take blood thinners, such as warfarin (Coumadin), clopidogrel (Plavix), or aspirin, be sure to talk to your doctor. He or she will tell you if and when to start taking those medicines again. Make sure that you understand exactly what your doctor wants you to do. ?? If polyps were removed or a biopsy was done during the test, your doctor may tell you not to take aspirin or other anti-inflammatory medicines for a few days. These include ibuprofen (Advil, Motrin) and naproxen (Aleve). ?? If you have a sore throat the day after the procedure, use an wmrq-wez-mzhhpdt spray to numb your throat. Sucking on throat lozenges and gargling with warm salt water may also help relieve your symptoms. Other instructions ?? For your safety, do not drive or operate machinery until the medicine wears off and you can think clearly. Your doctor may tell you not to drive or operate machinery until the day after your test. ?? Do not sign legal documents or make major decisions until the medicine wears off and you can think clearly. The anesthesia can make it hard for you to fully understand what you are agreeing to. Additional Information for Sedation Patients For patients who received sedation: ?? You may have received medications before and/or during your procedure which effects your judgement and reaction time. ?? Do not drive, operate machinery, drink alcoholic beverages or make important decisions for 24 hours. ?? Be careful on stairs as you may be unsteady on your feet. ?? You may eat a regular diet as tolerated. ?? Do not smoke if you are alone. ?? IV site: Slight redness or tenderness is normal, you can use a warm compress if you would like. If tenderness and/or redness increase or if foul drainage occurs, please contact your Doctor. Please call [phone] before 8pm Mon-Fri with problems, questions or concerns. If you call after 8pm or on weekends, call the Hospital at [phone] and ask to speak to the Drafting Layout Man cable television installer and the blind stitch machine operator will contact that person for you. When should you call for help? Call [phone] anytime you think you may need emergency care. For example, call if: ?? You passed out (lost consciousness). ?? You pass maroon or bloody stools. ?? You have trouble breathing. Call your doctor now or seek immediate medical care if: ?? You have pain that does not get better after you take pain medicine. ?? You are sick to your stomach or cannot drink fluids. ?? You have new or worse belly pain. ?? You have blood in your stools. ?? You have a fever. ?? You cannot pass stools or gas. Watch closely for changes in your health, and be sure to contact your doctor if you have any problems. Where can you learn more? [email or web address] View your After Visit Summary and more online at [email or web address] If you would like to provide feedback about your hospital experience, please call the Office of Patient and Family Relations at . If you have received this After Visit Summary in error, please immediately return it in person to the department, or notify the [facility] Privacy Office by calling toll free at between the hours of 8AM and 5PM to arrange for our retrieval of the documents at no cost to you. Content Version: 12.2 ?? 4173-6354 [employer]. Care instructions adapted under license by [facility]. If you have questions about a medical condition or this instruction, always ask your healthcare professional. [employer] disclaims any warranty or liability for your use of this information. ---- Instructions for Glucose management at home - you will put 8 units of regular insulin in TPN bag and administer TPN overnight - during the day please check your sugars 3-4 times a day (upon awakening and before meals) and keep a log of glucose recorded - you primary team will order lancets and glucose strips, and you have a glucose meter provided by Ms. Greer - if your sugars before meals are constantly above 150 you might need additional medications to treat high glucose - you will follow up with your PCP on Monday and will get referral to our clinic - if you have any questions you can call our clinic at [phone] Treatment of Low Blood Sugar (Hypoglycemia) If your BG is lower than 80, you are likely to feel shaky, sweaty and lightheaded. This is a signalthat your body needs more sugar. Quickly eat or drink a small serving of something sweet, such as: 4 ounces fruit juice or regular (not diet) soda 6 lifesavers small box of raisins 4 glucose tablets (~15 gm of glucose) If your BG is very low <50, you can double the amount above or take 30 gm of glucose gel/tablets. Sit and rest and you should feel better within a few minutes. Once you are feeling better, try to determine why your BG was so low. Common causes of hypoglycemia include skipping a meal, lots of exercise, too much insulin or any combination of these things. Understanding the cause my help you to avoid another low BG in the future. Call your doctor for blood sugars less than 80 or greater than 300 twice in one day to have your insulin doses adjusted. Acute Opioid Prescribing: Opioid PDMP 01/28/2020 [place] PDMP Query Date 04/11/2020 [place] PDMP Query Date 04/11/2020 [place] PDMP Query Date 04/11/2020 No flowsheet data found. Acute Opioid Specific Questions 01/28/2020 Date Acute Consent signed 04/11/2020 Considered the risk of opioid misuse, abuse, diversion? Yes Considered options for non-pharmacological modalities and non-opioid therapy? Yes Some recent data might be hidden Linda Abel is being prescribed a prescription opioid for the treatment of acute post-operative pain related to surgery. Linda Abel has been advised to take the smallest dose possible to control their pain and as their pain improves to take smaller doses and increase the time between doses.The patient's risk for opioid misuse, abuse or diversion have been considered. In addition to this medication, non-opioid therapies and non-pharmacologic modalities such as heating pad, ice, and activity modification have been recommended as appropriate for adjunct treatment oftheir pain. I have discussed the risks and potential side effects of opioid medications, that include but are not limited to, addiction, overdose and , dependence, tolerance, osteoporosis, constipation, sexual dysfunction, hyperalgesia and crime victimization. The patient is also informed of: - the risks of keeping unused medication -counseled on keeping opioids locked -counseled on safe disposal of unused medication -dangers of operating a motor vehicle or heavy machinery -if a renewal is required, they shall return for an in-office follow up for reevaluation. The Acute Opioid Therapy Informed Consent form has been completed and sent to medical records for scanning to chart. Follow-up Recommendations for Providers: - Routine post-operative care. - A follow-up appointment has been made for you with your Primary Care Provider, Zeny James APRN, on Monday, April 13, 2020 at 10:40am. 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 Please bring a log of your blood pressures and your blood sugars to this appointment. CC: Zeny James APRN Signed: Larry Longo MD [facility] Oncology Service Team Pager #[phone] 04/11/2020 6:07 PM documented in this encounter Discharge Instructions * Discharge Instructions* Larry Longo MD - 04/11/2020 10:10 AM EST Upper GI Endoscopy: What to Expect at Home Your Recovery You will be able to go home after your doctor or nurse checks to make sure you are not having any problems. You may have to stay overnight if you had treatment during the test. You may have a sore throat fora day or two after the test. This care sheet gives you a general idea about what to expect after the test. How can you care for yourself at home? Activity Rest when you feel tired. ?? You can do your normal activities when it feels okay to do so. Diet ?? Follow your doctor's directions for eating. ?? Unless your doctor has told you not to, drink plenty of fluids. This helps to replace the fluidsthat were lost during the prep. ?? Do not drink alcohol. Medicines ?? Your doctor will tell you if and when you can restart your medicines. He or she will also give you instructions about taking any new medicines. ?? If you take blood thinners, such as warfarin (Coumadin), clopidogrel (Plavix), or aspirin, be sure to talk to your doctor. He or she will tell you if and when to start taking those medicines again. Make sure that you understand exactly what your doctor wants you to do. ?? If polyps were removed or a biopsy was done during the test, your doctor may tell you not to take aspirin or other anti-inflammatory medicines for a few days. These include ibuprofen (Advil, Motrin) and naproxen (Aleve). ?? If you have a sore throat the day after the procedure, use an qohz-occ-hrddwwy spray to numb your throat. Sucking on throat lozenges and gargling with warm salt water may also help relieve your symptoms. Other instructions ?? For your safety, do not drive or operate machinery until the medicine wears off and you can think clearly. Your doctor may tell you not to drive or operate machinery until the day after your test. ?? Do not sign legal documents or make major decisions until the medicine wears off and you can think clearly. The anesthesia can make it hard for you to fully understand what you are agreeing to. Additional Information for Sedation Patients For patients who received sedation: ?? You may have received medications before and/or during your procedure which effects your judgement and reaction time. ?? Do not drive, operate machinery, drink alcoholic beverages or make important decisions for 24 hours. ?? Be careful on stairs as you may be unsteady on your feet. ?? You may eat a regular diet as tolerated. ?? Do not smoke if you are alone. ?? IV site: Slight redness or tenderness is normal, you can use a warm compress if you would like. If tenderness and/or redness increase or if foul drainage occurs, please contact your Doctor. Please call [phone] before 8pm Mon-Fri with problems, questions or concerns. If you call after 8pm or on weekends, call the Hospital at [phone] and ask to speak to the Drafting Layout Man cable television installer and the blind stitch machine operator will contact that person for you. When should you call for help? Call [phone] anytime you think you may need emergency care. For example, call if: ?? You passed out (lost consciousness). ?? You pass maroon or bloody stools. ?? You have trouble breathing. Call your doctor now or seek immediate medical care if: ?? You have pain that does not get better after you take pain medicine. ?? You are sick to your stomach or cannot drink fluids. ?? You have new or worse belly pain. ?? You have blood in your stools. ?? You have a fever. ?? You cannot pass stools or gas. Watch closely for changes in your health, and be sure to contact your doctor if you have any problems. Where can you learn more? [facility] View your After Visit Summary and more online at [email or web address] If you would like to provide feedback about your hospital experience, please call the Office of Patient and Family Relations at . If you have received this After Visit Summary in error, please immediately return it in person to the department, or notify the [facility] Privacy Office by calling toll free at between the hours of 8AM and 5PM to arrange for our retrieval of the documents at no cost to you. Content Version: 12.2 ?? 6673-3215 [employer]. Care instructions adapted under license by [facility]. If you have questions about a medical condition or this instruction, always ask your healthcare professional. [employer] disclaims any warranty or liability for your use of this information. ---- Instructions for Glucose management at home - you will put 8 units of regular insulin in TPN bag and administer TPN overnight - during the day please check your sugars 3-4 times a day (upon awakening and before meals) and keep a log of glucose recorded - you primary team will order lancets and glucose strips, and you have a glucose meter provided by Ms. Greer - if your sugars before meals are constantly above 150 you might need additional medications to treat high glucose - you will follow up with your PCP on Monday and will get referral to our clinic - if you have any questions you can call our clinic at [phone] Treatment of Low Blood Sugar (Hypoglycemia) If your BG is lower than 80, you are likely to feel shaky, sweaty and lightheaded. This is a signalthat your body needs more sugar. Quickly eat or drink a small serving of something sweet, such as: 4 ounces fruit juice or regular (not diet) soda 6 lifesavers small box of raisins 4 glucose tablets (~15 gm of glucose) If your BG is very low <50, you can double the amount above or take 30 gm of glucose gel/tablets. Sit and rest and you should feel better within a few minutes. Once you are feeling better, try to determine why your BG was so low. Common causes of hypoglycemia include skipping a meal, lots of exercise, too much insulin or any combination of these things. Understanding the cause my help you to avoid another low BG in the future. Call your doctor for blood sugars less than 80 or greater than 300 twice in one day to have your insulin doses adjusted. * Patient Instructions* Larry Longo MD - 03/25/2020 2:04 PM EST [facility] Department of General Surgery Discharge Instructions CALL YOUR PHYSICIAN'S OFFICE IF: ??? You have a fever greater than 101 degrees Farenheit (38.3C) within one month of your surgery. ? ? You have diarrhea or vomiting for >24 hours, stop having bowel movements and/or passing flatus, have pain with urination. ??? You have worsening pain, not controlled with your pain medication. ??? You develop redness, swelling, or new drainage from your wound. Medications: [x] Pain Control [x] Non-narcotic pain medication - We recommend Tylenol 1000mg every 6 hours as needed for pain. NO Ibuprofen / NSAID's due to bleeding / ulcer risk post-operatively. - Do not take more than 4,000mg (4g) of tylenol in 24hours. - Unfortunately, Lidoderm patches are not covered by insurance companies for the management of post-operative pain. Instead, we recommend using over the counter SalonPas patches which are a 4% Lidocaine patch and cost about $15 dollars for a box of 6 patches. [x] Narcotic pain medication - You have been prescribed 10 tablets of 2mg of dilaudid. This is a narcotic medication that has several side effects/warnings: 1. Constipation: Narcotics can cause severe constipation. Please take BOTH a stool softener and pro-motility/laxative agent whenever taking narcotics, unless otherwise advised. These are over the counter. (Stool Softeners: Colace, Surfak. Laxatives/Stimulants: Miralax, Milk of Magnesia, Senna, Bisacodyl). 2. Altered mental status: Narcotics can make you sleepy and have delayed reactions. Therefore, do not drive or operate any heavy machinery while taking narcotics. 3. Addictive: Narcotics are addictive. Please take as prescribed and wean down/decrease your dose as soon as you can tolerate. 4. Restricted: Narcotics are highly regulated. If you are running out of your prescription and feelyou will need more, plan ahead and call your Physician as these cannot be filled electronically or at night/over the weekend. Again, as your pain decreases, reduce your use of these medications. You do not need to use all of the pills provided. [x] Other Medication(s) - The remainder of your medications are listed in the first section of the After Visit Summary. - You will need to take a Proton Pump Inhibitor (such as Nexium, Protonix, Omeprazole, etc.) once daily for at least 1 year after your Whipple surgery to help prevent the development of marginal ulcers. - Please check your Blood pressures at different times each day and keep a log of this to bring to your appointment with your PCP. - Please check your Blood Sugars first thing in the mornings before eating on Mondays / Wednesdays / Fridays. Bring a log of your blood sugars to your appointment with your PCP. - New BP med carvedilol, please take as prescribed and follow up with your PCP Driving Restrictions: - No driving if you are too sore from surgery to enter or exit your vehicle comfortably, or if you are too sore to easily check your blind spot. No driving while using narcotic pain medications. Shower: - It is ok to shower. You can shower per usual routine and let soapy water run over your incision. Pat incision dry with a clean, dry towel. Do not submerge the wound under water (no swimming or soaking) for at least 6 weeks, or until approved by your surgeon. Diet: [x] You have been cleared for full liquid diet for comfort - You may find it easier to eat smaller, more frequent meals after your surgery. - You should eat your meals sitting upright in a chair to help with digestion after your surgery. - If you feel full after eating, that is a great time to get up and go for a walk as gravity will help your stomach empty. - You may benefit from Boost or Ensure shakes once or twice daily while at home to help with your nutrition. This is a great way to get the nutrients your body needs to heal after surgery, without having to take in a lot of volume. - You will receive all of your nutritional needs through TPN. TPN to be cycled for 18 hours for 2 days and then cycled for 12 hours going forward - Please place 8 units of regular insulin into your TPN bag every night Activity: - It is normal to feel tired after surgery/hospitalization. Be as active as tolerated as this will improve recovery and prevent blood clots. - You should avoid any heavy lifting for 4 weeks after surgery. A gallon of milk is a good estimateof the maximum you should be lifting while your wounds heal. -We recommend taking several slow, short walks each day for the first two weeks, and gradually increase your distance. We recommend at least 4 times a day. Wound/Incision Care: Closure: Your skin incision(s) are closed with: [x] Glue - There are sutures below the skin and the glue is the dressing. There is nothing to remove and the discoloration will go away in time. Infection: Observe for changes and alert the clinic if new/worsening redness or drainage. Things to avoid: Do not use creams, oils, or ointments on the wound. Keep wound open to air if it is not draining. Who to call? If you have concerns or questions: - During the day, it is best to call the [facility] to speak with the Surgery nurses. The number is [phone]. - During the night or weekends call the [facility] blind stitch machine operator at [phone] and ask to speak to the surgery resident cable television installer for general surgery. Please note: Your surgeon may not be Manufacturing Teacher, especially during the night or on weekends, so be ready to describe yourself and your surgery when you call. Follow up appointments: Future Appointments Date Time Provider Department Center 04/21/2020 1:30 PM LAB, THREE L Lab 3L [facility] 04/21/2020 2:30 PM Davian Carolina MD [facility] 04/21/2020 2:[address] [facility] [x] Follow-up appointment with General Surgery has already been scheduled [] A request for a follow-up appointment has been made and you should receive information via phone/mail in the next week. If you do not hear anything, please call the clinic at [phone] to confirm or reschedule. - A follow-up appointment has been made for you with your Primary Care Provider, Zeny James APRN, on Monday, April 13, 2020 at 10:40am. 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 Please bring a log of your blood pressures and your blood sugars to this appointment. If you need a prior authorization, please call the General Surgery Clinic nurses [phone] for prior authorizations assistance documented in this encounter Medications at Time of Discharge Medication Sig Dispensed Refills Start Date End Date Blood-Glucose Meter Misc 1 Application by [facility]Non-Drug; Combo Route) route 3 times daily (before [...] Capsule Take 1 g by mouth daily. pinajh-fiplklga-yjmi ase DR (Creon 24) 24,000-76,000 -120,000 unit Capsule, Delayed Release(E.C.) Take 2 capsules by mouth 3 times daily (with meals) for 30 days. 180 capsule 11 04/11/2020 05/11/2020 metoclopramide (Reglan) 10 mg Tablet Take 1 tablet by mouth 4 times daily for 14 days. 56 tablet 04/11/2020 04/25/2020 TPN FOR DISCHARGE Inject into the vein. The TPN formula will print on the Discharge Summary Report. 1 each NO 04/11/2020 04/17/2020 carvediloL (Coreg) 3.125 mg Tablet Take 1 tablet by mouth 2 times daily (with meals). 60 tablet 3 04/11/2020 04/29/2021 HYDROmorphone (Dilaudid) 2 mg Tablet Take 1 tablet by mouth every 6 hours as needed for Pain. 10 tablet 04/11/2020 05/19/2020 pantoprazole EC (Protonix) 40 mg Tablet, Delayed Release (E.C.) Take 1 tablet by mouth 2 times daily. 90 tablet 3 04/11/2020 09/28/2020 senna-docusate (Pericolace) 8.6-50 mg Tablet Take 2 tablets by mouth 2 times daily. 60 tablet 11 04/11/2020 04/29/2021 Insulin Syringe-Needle U-100 0.3 mL 31 gauge x 5/16 Syringe 1 each by Misc.(Non-Drug; Combo Route) route nightly. 30 Syringe 11 04/11/2020 05/19/2020 lancets 33 gauge Misc 1 each by Misc.(Non-Drug; Combo Route) route 3 times daily (before meals). 100 each 11 04/11/2020 05/19/2020 novoLIN R Solution Add 8 units to TPN bag every night 10 mL 12 04/11/2020 05/19/2020 xoarky-ptizokxp-stla ase DR (Creon) 24,000-76,000 -120,000 unit Capsule, Delayed Release(E.C.) Take 1-2 capsules by mouth 3 times daily (with meals). With Meals: Take 1-2 capsules by mouth. With Snacks: Take 1 capsule by mouth. 270 capsule 3 03/31/2020 09/07/2020 CALCIUM CARBONATE-VITAMIN D3 ORAL Take 1 tablet by mouth daily. 01/19/2023 fluticasone propionate (FLONASE) 50 mcg/actuation [place], Suspension 1 spray by Each Nare route daily as needed. 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 Start mid January 2020. 90 tablet 3 01/09/2020 12/08/2020 documented as of this encounter Progress Notes * Alanna Kaplan RN - 04/11/2020 3:46 PM EST Reviewed AVS; pt returned verbalization of discharge instructions. New Rx sent electronically to pt's home pharmacy.Patient [facility] in a wheelchair accompanied by 2 [place] staff. * Victoria Calle RN - 04/11/2020 10:13 AM EST JORGE bae, Willem and care team (, RD) working on arranging home DC today with TPN and with [place] home therapy clinician to assist. Orders updated. KSAWILDA liaison coordinating. Son Roberto Carlos to transport home and assist at DC. Victoria Calle RN Pager [phone] * oLra Berg RD - 04/11/2020 10:00 AM EST Nutrition Progress Note Linda Abel is a 74 y.o. female ID: Linda Abel is a 74 y.o. female with PMH main duct IPMN, now s/p robotic whipple. Reason for intervention: TPN Comments: Pt to be discharged on TPN cycled for 18 hrs X 2 days then to cycle X 12 hrs Orders written per protocol I was able to discuss plan with provider Team pager #[phone]. Nutrition Support: TPN Formula for Discharge (Show up to 1 orders; newest on the left.) Start date and time 04/11/2020 1800 Adult TPN [[id number]] Order Status Active Macro Ingredients amino acid 15% no.5 (ClinisoL) 110 g dextrose 70% 118 g Electrolytes sodium phosphate 48 mmol potassium chloride 100 mEq sodium chloride 210 mEq Additives trace elements Zn-Cu-Mn-Se 1 mL ascorbic acid (vitamin C) 100 mg Vit J2-T3-W0-B5-B6 (B Complex) 1 mL zinc sulfate 10 mg Medications insulin regular human 8 Units QS Base sterile water 116.32 mL Lipid fat emulsion 30 % 55 g Energy Contribution Proteins 440 kcal Dextrose 401.27 kcal Lipids 549 kcal Total 1,390.27 kcal Electrolyte Ion Calculated Amount Sodium 274 mEq Potassium 100 mEq Calcium -- Magnesium -- Aluminum -- Phosphate 50.75 mmol Chloride 310 mEq Acetate 93.13 mEq Other Total Amino Acid 110 g Total Amino Acid/kg 2.06 g/kg Glucose Infusion Rate 2.05 mg/kg/min Osmolarity (Estimated) 1,858.02 Volume 1,332 mL Rate 74 mL/hr Dosing Weight 53.3 kg Infusion Site Central Admin Instructions For 2-in-1 TPN (no lipid): Attach 0.2 micron filter set to primary set prior to infusion. For 2-in-1 TPNs with Y-sited lipids: Attach 1.2 micron filter set below Y-site. For 3-in-1 TPN (Lipid in TPN bag): Attach 1.2 micron filter set to primary set prior to infusion. Warning Vesicant/Irritant Medication TPN Medication Recent History (Show up to 3 orders; newest on the left. Changes between the two most recent orders are indicated.) Start date and time 04/11/2020 1800 04/09/2020 1800 04/08/2020 1800 Adult TPN [[id number]] TPN Adult [[id number]] TPN Adult [[id number]] Order Status Active Active Last Admin New Bag at 04/10/2020 1759 by Wendy Ruiz, RN New Bag at 04/08/2020 1722 by Inez Lan, LOS Medications insulin regular human 8 Units 8 Units 8 Units Additives trace elements Zn-Cu-Mn-Se 1 mL 1 mL 1 mL ascorbic acid (vitamin C) 100 mg 100 mg 100 mg Vit A4-C2-C9-B5-B6 (B Complex) 1 mL 1 mL 1 mL zinc sulfate 10 mg 10 mg 10 mg Electrolytes sodium phosphate 48 mmol 48 mmol 42 mmol potassium chloride 100 mEq 100 mEq 132 mEq sodium chloride 210 mEq 210 mEq 210 mEq Dextrose dextrose 70% 118 g 118 g 118 g Amino Acids amino acid 15% no.5 (ClinisoL) 110 g 110 g 110 g QS Base sterile water 116.32 mL 104.32 mL 90.32 mL Lipid fat emulsion 30 % 55 g 55 g 55 g Energy Contribution Proteins 440 kcal 440 kcal 440 kcal Dextrose 401.27 kcal 401.27 kcal 401.27 kcal Lipids 549 kcal 549 kcal 549 kcal Total 1,390.27 kcal 1,390.27 kcal 1,390.27 kcal Electrolyte Ion Calculated Amount Sodium 274 mEq 274 mEq 266 mEq Potassium 100 mEq 100 mEq 132 mEq Calcium -- -- -- Magnesium -- -- -- Aluminum -- -- -- Phosphate 50.75 mmol 50.75 mmol 44.75 mmol Chloride 310 mEq 310 mEq 342 mEq Acetate 93.13 mEq 93.13 mEq 93.13 mEq Other Total Amino Acid 110 g 110 g 110 g Total Amino Acid/kg 2.06 g/kg 2.06 g/kg 2.06 g/kg Glucose Infusion Rate 2.05 mg/kg/min 1.54 mg/kg/min 1.54 mg/kg/min Osmolarity (Estimated) 1,858.02 1,874.91 1,911.27 Volume 1,332 mL 1,320 mL 1,320 mL Rate 74 mL/hr 55 mL/hr 55 mL/hr Dosing Weight 53.3 kg 53.3 kg 53.3 kg Infusion Site Central [facility] Lab Results Component Value Date NA 130 (L) 04/11/2020 K 4.3 04/11/2020 CL 99 04/11/2020 CO2 25 04/11/2020 BUN 15 04/11/2020 CREATININE 0.34 (L) 04/11/2020 GFRAA 96 01/09/2020 ESTGFR 109 04/11/2020 MAGNESIUM 0.69 04/11/2020 CALCIUM 7.7 (L) 04/11/2020 PHOS 3.4 04/11/2020 AST 77 (H) 03/27/2020 ALT 160 (H) 03/27/2020 ALKPHOS 58 03/27/2020 BILITOT 0.4 03/27/2020 HA1C 5.8 (H) 03/30/2020 Lab Results Component Value Date POCGLU 162 04/11/2020 POCGLU 184 04/11/2020 POCGLU 181 04/11/2020 POCGLU 174 04/10/2020 POCGLU 168 04/10/2020 POCGLU 167 04/10/2020 Skin Status: Shift Pressure Injury Prevention Occiput: No Injury Thoracic Spine: No Injury Sacral: No Injury Ischial - left: No Injury Ischial - right: No Injury Heel - left: No Injury Heel - right: No Injury Elbow - left: No Injury Elbow - right: No Injury Device Sites: O2 sat monitor, IV sites, SCD's/venodynes Other Sites: ostomy bag over old KHRIS site Last Bowel Movement: 04/11/20 Intake/Output Summary (Last 24 hours) at 04/11/2020 1000 Last data filed at 04/11/2020 0915 Gross per 24 hour Intake 1986.83 ml Output 2600 ml Net -613.17 ml Admit Weight: 54.89 kg Estimated body mass index is 21.5 kg/m?? as calculated from the following: Height as of this encounter: 157.5 cm (5' 2.01). Weight as of this encounter: 53.3 kg (117 lb 9.6 oz). [place] Body Weight: 50-55 kg Usual Body Weight: see below Wt Readings from Last 10 Encounters: 03/27/20 53.3 kg (117 lb 9.6 oz) 01/28/20 55.8 kg (123 lb) 01/09/20 54.7 kg (120 lb 9.6 oz) 12/20/19 52.2 kg (115 lb) 12/18/19 54.7 kg (120 lb 9.6 oz) 12/11/19 52.2 kg (115 lb) 12/09/19 55.3 kg (122 lb) 11/25/19 55 kg (121 lb 3.2 oz) 11/15/19 54.4 kg (120 lb) Assessment: Estimated needs: Calories: 1375 Protein: 110 grams Nutrition Focused Physical Exam (NFPE): Not performed Protein-calorie Malnutrition: Not identified (Vadim JPEN J Parenteral Enteral Nutr. 2011; 36(3): 273-83) Nutrition to continue to follow up while inpatient. LORA BERG RD Pager #:[phone] * Larry Longo MD - 04/11/2020 8:18 AM EST Surgical Oncology Inpatient Progress Note Patient Name: Linda MERZA; Age: 6 1945; 74 y.o. Room/Bed: [address] [place] [address]-A Today's Date: 04/11/20 ID: Linda Abel is a 74 y.o. female with PMH main duct IPMN, now s/p robotic whipple. Procedures this Hospitalization: 03/23: Robotic whipple 04/02: EGD OR Findings: No metastatic disease. The liver was healthy appearing. The resection was complicated by ergonomic issues given her small size and limited space within the abdomen- this made the resection and reconstruction take longer given instrument limited range of motion. Otherwise the case went well- minimalblood loss. The pancreatic duct measured 1.5 cm and the bile duct though was quite small - only 5-6mm. After completion of the resection and as we were preparing for the reconstruction it appeared that the common hepatic or proper hepatic artery had what looked like purple discoloration and some aneurysmal dilation extending up into a branch that looked like the right hepatic artery. Her completely replaced right hepatic artery though was nicely palpable. It was unclear whether this was just some tracking of blood along the arterial adventitia or some type of dissection? We spent quite a lotof time watching this and looking at the viability/color of the liver and it appeared completely unc hanged throughout the remainder of the case. Reconstruction was an intracoporal retromesenteric anddecide (Blumgart type) duct to mucosa pancreaticojejunostomy. The pancreatic duct was so massively dilated that we could not stent it. The bile duct anastomosis however was somewhat difficult and that it was so tiny and required an interrupted Blumgart-Debra type hepaticojejunostomy with 5-0 PDS. Intestinal continuity was restored by bringing the proximal jejunal limb up as a retrocolic/transmesenteric side to side (Billroth II type) handsewn gastrojejunostomy anastomosis. Final inspection at the end of the case revealed excellent hemostasis and the liver really looked completely normal and there was no areas of demarcation. Hospital Course: POD 0 12/7: To OR for robotic WhROEL martinez post-op. Note intra-operative concern for common hepaticartery [...] No changes, tolerating sips and chips POD 04/08: ROEL POD 17 04/09: ROEL. Advanced to FLD. Awaiting C.diff testing POD 04/10: +BM and flatus, c.diff negative, advanced to FLD for comfort only and tolerated well,started on carvedilol per medicine recs for SBP<150 POD 04/11: PICC rewired, ROEL?? 24 Hour Events/Subjective: - PICC rewired, ROEL?? - tolerated FLD for comfort only Objective Last value Range last 24hrs Temperature Temp: 37.2 ??C (99 ??F) Temp: [36.8 ??C (98.2 ??F)-37.2 ??C (99 ??F)] Heart Rate Heart Rate: 87 Heart Rate: -- Blood Pressure BP: 142/88 BP: (135-142)/(85-89) Respiratory Rate Resp: 16 Resp: [16-20] SpO2 SpO2: 91 % SpO2: [91 %-93 %] 2L NC Physical Exam Gen: NAD HEENT: Normocephalic, atraumatic CV: RRR Pulm: breathing comfortably on RA, no respiratory distress Abd: non-distended, soft, appropriately TP, robotic sites dressed with dermabond, mild ecchymoses, c/d/i. Ext: SCDs in place Skin: warm, dry 24 Hour I/O's: I/O last 3 completed shifts: In: 1966.8 [P.O.:360] Out: 2950 [Urine:2950] Admit Weight: 54.89 kg Current Weight: Weight: 53.3 kg (117 lb 9.6 oz) Labs: Recent Labs 04/11/2053404/10/2031304/09/20 0030 WBC 13.2* 13.1* 13.5* HGB 9.7* 9.6* 10.1* HCT 29.4* 28.6* 30.4* PLATELET 371* 429* 426* Recent Labs 04/11/2053404/10/2031304/09/20 0030 NA 130* 131* 133* K 4.3 3.9 3.9 CL 99 100 102 CO2 25 24 23 BUN 15 16 15 CREATININE 0.34* 0.35* 0.31* GLUCOSE 165 156 157 CALCIUM 7.7* 7.6* 7.7* MAGNESIUM 0.69 0.64* 0.78 PHOS 3.4 3.4 2.7 LFT's No results found for: ALKPHOS, AST, ALBUMIN, BILIDIR, BILITOT, ALT, PROT KHRIS Amylase: 8: 26 12/9: 22 12/10: 15 12/11: 327 1212: 12 Micro: Bile duct cx (03/23): NGTD New Imaging: None Assessment / Plan: Linda Abel is a 74 y.o. female with PMH breast ca, HTN, pancreatic IPMN, POD 11 s/p robotic Whipple. Her hospital course is now complicated by ulceration at the GJ anastomosis. Initial work up for nausea and vomiting included a CT scan which showed a dilated stomach and contrast refluxing into the biliopancreatic limb. There was concern for ulceration or obstruction. An EGD was obtained which showed ulceration at the GJ anastomosis. Currently doing well as she is tolerating FLD, FLD is for comfort only, and she has ROBF. - plan for discharge later today - d/c with TPN, f/u with DM and medicine for final d/c recs - FLD for comfort only - BID PPI - dilaudid on d/c Per case mgmt swing beds, and SNFs cannot take patient while on TPN and rehab will not take her since PT/OT cleared patient for home. Will likely need to be discharged to home on home TPN as marginalulcer will take time to heal. If she is unable to tolerate her PO diet, she may require surgical intervention. Plan for possible discharge 04/11. NEURO: Ok for tylenol, toradol, lidoderm patches. Oxy PRN CV: SBPs have been 160-170s. Started on amlodipine 5mg qdaily per medicine recs PULM: Encourage OOB/IS, home albuterol (duoneb) PRN Aspiration PNA: Flagyl/ceftriaxone GI/FEN: #delayed gastric emptying s/p whipple. -Ulcerations at GJ: PPI BID -CLD (+ toast) -TPN given poor PO intake with #moderate protein and caloric malnutrition. RENAL: UOP adequate ENDO: Holding home Arimidex, ISS HEME: DVT ppx Lovenox ID: periop antibiotics, BD cultures NG, Ceftriaxone/Flagyl, C. Diff screen/precautions MSK: OOB today PPX: PPI, IS, SCDs LINES: PIV DISPO: Floor status, Attempt Cardiopulmonary Resuscitation - Inpatient Signed: Larry Longo MD Surgical Oncology Service Team Pager #[phone] 04/11/20 8:18 AM * Larry Longo MD - 04/10/2020 7:59 AM EST Surgical Oncology Inpatient Progress Note Patient Name: Linda MERAZ; Age: 6 1945; 74 y.o. Room/Bed: 207/207-A Today's Date: 04/10/20 ID: Linda Abel is a 74 y.o. female with PMH main duct IPMN, now s/p robotic whipple. Procedures this Hospitalization: 03/23: Robotic whipple 04/02: EGD OR Findings: No metastatic disease. The liver was healthy appearing. The resection was complicated by ergonomic issues given her small size and limited space within the abdomen- this made the resection and reconstruction take longer given instrument limited range of motion. Otherwise the case went well- minimalblood loss. The pancreatic duct measured 1.5 cm and the bile duct though was quite small - only 5-6mm. After completion of the resection and as we were preparing for the reconstruction it appeared that the common hepatic or proper hepatic artery had what looked like purple discoloration and some aneurysmal dilation extending up into a branch that looked like the right hepatic artery. Her completely replaced right hepatic artery though was nicely palpable. It was unclear whether this was just some tracking of blood along the arterial adventitia or some type of dissection? We spent quite a lotof time watching this and looking at the viability/color of the liver and it appeared completely unc hanged throughout the remainder of the case. Reconstruction was an intracoporal retromesenteric anddecide (Blumgart type) duct to mucosa pancreaticojejunostomy. The pancreatic duct was so massively dilated that we could not stent it. The bile duct anastomosis however was somewhat difficult and that it was so tiny and required an interrupted Blumgart-Debra type hepaticojejunostomy with 5-0 PDS. Intestinal continuity was restored by bringing the proximal jejunal limb up as a retrocolic/transmesenteric side to side (Billroth II type) handsewn gastrojejunostomy anastomosis. Final inspection at the end of the case revealed excellent hemostasis and the liver really looked completely normal and there was no areas of demarcation. Hospital Course: POD 0 12: To OR for robotic WhippROEL garcia post-op. [...] 04/03: Abx started for PNA tx POD 04/04: ROEL POD 04/05: ROEL POD 14 04/06: NGT removed, tolerating sips and chips POD 15 04/07: No changes, tolerating sips and chips POD 04/08: ROEL POD 17 04/09: ROEL. Advanced to FLD. Awaiting C.diff testing POD 04/10: +BM and flatus, c.diff negative, advanced to FLD and tolerated well, started on carvedilol per medicine recs for SBP<150?? 24 Hour Events/Subjective: +BM and flatus, c.diff negative, advanced to FLD and tolerated well, started on carvedilol per medicine recs for SBP<150 Objective Last value Range last 24hrs Temperature Temp: 37 ??C (98.6 ??F) Temp: [36.9 ??C (98.4 ??F)-37.4 ??C (99.3 ??F)] Heart Rate Heart Rate: 87 Heart Rate: [87] Blood Pressure BP: 137/75 BP: (137-175)/(75-107) Respiratory Rate Resp: 16 Resp: [16-20] SpO2 SpO2: 93 % SpO2: [92 %-96 %] 2L NC Physical Exam Gen: NAD HEENT: Normocephalic, atraumatic CV: RRR Pulm: breathing comfortably on RA, no respiratory distress Abd: non-distended, soft, appropriately TP, robotic sites dressed with dermabond, mild ecchymoses, c/d/i. Ext: SCDs in place Skin: warm, dry 24 Hour I/O's: I/O last 3 completed shifts: In: 1706 [P.O.:490; I.V.:482] Out: 3750 [Urine:3750] Admit Weight: 54.89 kg Current Weight: Weight: 53.3 kg (117 lb 9.6 oz) Labs: Recent Labs 04/10/2031304/09/20 0030 04/08/20 0030 WBC 13.1* 13.5* 16.1* HGB 9.6* 10.1* 9.8* HCT 28.6* 30.4* 28.6* PLATELET 429* 426* 477* Recent Labs 04/10/2031304/09/200 04/08/20 0030 NA 131* 133* 132* K 3.9 3.9 3.5 CL 100 102 101 CO2 24 23 24 BUN 16 15 15 CREATININE 0.35* 0.31* 0.29* GLUCOSE 156 157 147 CALCIUM 7.6* 7.7* 7.7* MAGNESIUM 0.64* 0.78 0.69 PHOS 3.4 2.7 3.1 LFT's No results found for: ALKPHOS, AST, ALBUMIN, BILIDIR, BILITOT, ALT, PROT KHRIS Amylase: 8: 26 129: 22 12/10: 15 12/11: 327 12/12: 12 Micro: Bile duct cx (03/23): NGTD New Imaging: None Assessment / Plan: Linda Abel is a 74 y.o. female with PMH breast ca, HTN, pancreatic IPMN, POD 11 s/p robotic Whipple. Her hospital course is now complicated by ulceration at the GJ anastomosis. Initial work up for nausea and vomiting included a CT scan which showed a dilated stomach and contrast refluxing into the biliopancreatic limb. There was concern for ulceration or obstruction. An EGD was obtained which showed ulceration at the GJ anastomosis. Currently doing well as she is tolerating FLD with ROBF. - follow up with DM mgmt for outpt DM mgmt - [place] [facility] [place] - Possible advance diet today - Replete lytes - possible discharge tomorrow Per case mgmt swing beds, and SNFs cannot take patient while on TPN and rehab will not take her since PT/OT cleared patient for home. Will likely need to be discharged to home on home TPN as marginalulcer will take time to heal. If she is unable to tolerate her PO diet, she may require surgical intervention. Plan for possible discharge 04/11. NEURO: Ok for tylenol, toradol, lidoderm patches. Oxy PRN CV: SBPs have been 160-170s. Started on amlodipine 5mg qdaily per medicine recs PULM: Encourage OOB/IS, home albuterol (duoneb) PRN Aspiration PNA: Flagyl/ceftriaxone GI/FEN: #delayed gastric emptying s/p whipple. -Ulcerations at GJ: PPI BID -CLD (+ toast) -TPN given poor PO intake with #moderate protein and caloric malnutrition. RENAL: UOP adequate ENDO: Holding home Arimidex, ISS HEME: DVT ppx Lovenox ID: periop antibiotics, BD cultures NG, Ceftriaxone/Flagyl, C. Diff screen/precautions MSK: OOB today PPX: PPI, IS, SCDs LINES: PIV DISPO: Floor status, Attempt Cardiopulmonary Resuscitation - Inpatient Signed: Larry Longo MD Surgical Oncology Service Team Pager #[phone] 04/10/20 7:59 AM * Duke Tidwell - 04/09/2020 3:32 PM EST Wheel Borer Encounter Note Patient Name: Linda Abel : [id number] MR#: [id number] Admit Date: 03/23/2020 5:51 AM Hospital Day 17 days Narrative: Follow-up visit for continued assessment and support. Pt was sleeping and I will visit an other time. Assessment: Intervention and Outcome: Follow-up: Time in Direct Care: Duke Tidwell 04/09/2020 * Alesha Casillas RN - 04/09/2020 12:54 PM EST OFFICE OF CARE MANAGEMENT Social Work Professor Follow-up Note Alesha Casillas RN reviewed record and discussed patient with Care Team. Patient plan of care discussed in multidisciplinary rounds and assessment for continuing care and discharge needs. Diagnosis: IPMN (intraductal papillary mucinous neoplasm) LOS Hospital: 17 days INSURANCE: Payor: MEDICARE / Plan: MEDICARE PART A & B / Product Type: *No Product type* / SECONDARY INSURANCE: [facility]: Attempt Cardiopulmonary Resuscitation - Inpatient <no information> Patient continues to require hospitalization. Per team, patient requires inpatient status r/t increasing diet, TPN and c-diff pending results. Discharge date planned for 04/11 if medically ready. Dirk will be here around 1pm and will need a teach with patient. Aury from [facility] will see patient this afternoon and arrange another teach on Monday with patient and son around 1-2pm. [facility] will confirm [place] will see patient Monday afternoon to complete third teach. Patient understands and has agreed to learn to self administer her TPN. Referred Roberto Carlos from [facility] to see patient as wellfor support. Aury from [facility] will call son and set up today. Friend Inez Nurse [phone], [phone] next to patient will be there to check in as well as a resource for patient but is not able to be available all the time. Noé Azevedo has committed to staying with patient x2 weeks and then friend Luba will stay with patient. Asked team to put order in to request to single lumen before discharge. Current Referral in place: [facility] for RN, PT to eval for needs in home, OT Transportation: Noé Azevedo will drive patient home via private vehicle when medically ready. Support: Son, friends Social Work Professor to follow with team and family to assist with discharge needs when patient ready for discharge. Due to current public health concerns, I have verbally reviewed Medicare Discharge Rights with patient. Patient verbalizes understanding of right to appeal this discharge if feeling not medically ready. Important Message From Medicare about Your Rights letter was reviewed with patient. Patient given a copy. Patient acknowledged understanding of their right to appeal this discharge if they feel that they are not medically ready. Alesha Casillas RN, BSN Case Management pgr [phone] * Diego Blas MD - 04/09/2020 11:45 AM EST Medicine Consults Progress Note Consult Team/Pager: ID:Linda Abel is a 74 y.o. female with PMHx significant for HTN and a pancreatic main duct IPMN who received a Robotic Whipple on 03/23. 24 Hour Events/Subjective: - Awaiting C.Diff test results - Reports feeling better this AM - Required labetalol for SBP in the 170s this AM Vitals: Temp: Temp: [36.8 ??C (98.2 ??F)-37.4 ??C (99.3 ??F)] Heart Rate: [87-91] Resp: [20] BP: (145-173)/(82-103) Ins/Outs: Intake/Output Summary (Last 24 hours) at 04/09/2020 1145 Last data filed at 04/09/2020 0808 Gross per 24 hour Intake 1897 ml Output 2725 ml Net -828 ml Weights: Admit weight: 54.89 kg No data found. Physical Exam: Gen: Uncomfortable appearing in bed. CVS: RRR with normal S1/S2, no appreciable m/r/g Pulm: CTA b/l, no crackles or wheeze Course cough is present. Abd: soft, NT, non-distended Ext: WWP, no edema, no clubbing, no cyanosis. Chest/Back: no spinal tenderness, no CVAT Skin: Intact with no rashes, petechiae, or ecchymoses Neuro:A&OX3 Labs: Recent Labs 04/09/20 0030 04/08/20 0030 04/07/20 0350 WBC 13.5* 16.1* 13.5* HGB 10.1* 9.8* 9.6* HCT 30.4* 28.6* 28.1* PLATELET 426* 477* 453* Recent Labs 04/09/20 0030 04/08/20 0030 04/07/20 0350 NA 133* 132* 134* K 3.9 3.5 3.6 CL 102 101 101 CO2 23 24 24 BUN 15 15 16 CREATININE 0.31* 0.29* 0.34* No results for input(s): AST, ALT, ALKPHOS, BILITOT, BILIDIR in the last 168 hours. Recent Labs 04/09/20 0030 04/08/20 0030 04/07/20 0350 CALCIUM 7.7* 7.7* 7.7* MAGNESIUM 0.78 0.69 0.82 PHOS 2.7 3.1 3.3 No results for input(s): INR, PT, PTT in the last 168 hours. No results for input(s): CK, TROPONINT in the last 168 hours. Recent Labs 04/09/20 0805 04/09/20 0518 04/09/20 0052 04/08/20 2103 04/08/20 1542 04/08/20 1231 POCGLU 181 145 169 169 127 167 Microbiology: Microbiology Results (Last 30 days) Procedure Component Value Units Date/Time Body Fluid Culture, Aerobic & Anaerobic Bile [[id number]] Collected: 03/23/20 1346 Lab Status: Final result Specimen: Bile Updated: 03/27/20 1333 Body Fluid Culture, Aerobic [[id number]] Collected: 03/23/20 1346 Lab Status: Final result Specimen: Bile Updated: 03/27/20 1333 Body Fluid Culture No growth Gram Stain -- Cytocentrifuge Gram Stain performed Neutrophils seen No microorganisms seen. Anaerobic Culture [[id number]] Collected: 03/23/20 1346 Lab Status: Final result Specimen: Bile Updated: 03/27/20 1117 Anaerobic Culture No anaerobic organisms isolated COVID-19 PCR [[id number]] Collected: 03/20/20 1057 Lab Status: Final result Specimen: Nasopharyngeal Swab Updated: 03/20/20 1720 SARS-CoV-2 RNA Not Detected Comment: This result should be interpreted in combination with the clinical observations, patient history and epidemiological information in making a final diagnosis. For testing of asymptomatic individuals, assay performance characteristics and clinical utility have not been evaluated. Testing for SARS-CoV-2 (Severe acute respiratory syndrome coronavirus 2, formerly known as 2019 novel coronavirus or 2019-nCoV) to aid in the diagnosis of COVID-19 is performed using the [employer] m SARS-CoV-2 Assay as authorized by the FDA Emergency Use Authorization (EUA). This EUA assay is intended for In-vitro Diagnostic (IVD) use with respiratory specimens such as nasopharyngeal swabs collected from individuals during the acute phase of infection. This assay is performed based on the instructions for use provided by [employer] and additional guidance provided by CDC and FDA. Testing is performed in the [facility] within the Department of Pathology and Laboratory Medicine at [facility], certified under the Clinical Laboratory Improvement Amendments of 1988 (CLIA), 42 U.S.C. 263a, to perform high complexity tests. Assay performance has been verified according to clinical laboratory regulatory requirements for use with specimens collected from individuals suspected of COVID-19. Test results are provided above. A result of ???Not Detected?? indicates that the viral RNA target is not present above the limit of detection, but does not preclude SARS-CoV-2 infection. False negative results may occur if a specimen is improperly collected, transported or handled; if amplification inhibitors are present; or if inadequate numbers of viral particles are present in the specimen. When a diagnostic test is negative, the possibility of a false negative result should be considered in the context of a patient???s recent exposures and the presence of clinical signs and symptoms consistent with COVID-19. A result of ???Detected?? indicates that RNA from SARS-CoV-2 was detected and the patient is infected. As required or requested by public health authorities, positive specimens may be sent for additional testing. Positive and negative predictive values for this test are highly dependent on disease prevalence. A result of ???Invalid?? indicates that neither the viral RNA targets nor the internal control target was detected. An invalid result suggests the presence of inhibitors. Recollection and re-testing is recommended in the case of an invalid result. CDC COVID-19 criteria for testing on human specimens and clinical management guidance information are available at the CDC Coronavirus Disease 2019 (COVID-19) webpage under ???Information for Healthcare Professionals?? (https://www.cdc.gov/coronavirus/2019-ncov/hcp/index.html) Additional information about this and other EUA tests can be found in provider and patient fact sheets at the following FDA website: https://www.fda.gov/medical-devices/kcsxiotaihq-tawczgw-4108-bneuu-68-ehiriuxbb- poj-qiyzkyoikljwxh-jkiynkl-devices/cxtfr-oyraabioquy-kgur SARS-Cov-2 RNA Source BAG CHECKER Swab Diagnostic Studies: None new Inpatient Medications: Scheduled Meds: ??? amLODIPine 5 mg Oral Daily ??? insulin lispro 1-4 Units Subcutaneous Q4H LUZ ??? cefTRIAXone 1 g Intravenous Q24H ??? metroNIDAZOLE 500 mg Intravenous Q8H ??? metoclopramide 10 mg Intravenous Q6H LUZ ??? pantoprazole 40 mg Intravenous BID ??? lidocaine 2 patch Transdermal Q24H And ??? lidocaine 1 patch Transdermal Q24H ??? sodium chloride 0.9 % (flush) 5 mL Intravenous BID ??? enoxaparin 40 mg Subcutaneous Nightly Continuous Infusions: ??? TPN Adult ??? TPN Adult 55 mL/hr at 04/08/20 1722 PRN Meds: labetaloL, phenol 1.4%, HYDROmorphone, sodium chloride 0.9 % (flush), lidocaine, ondansetron, naloxone, glucose 40% oral geL OR dextrose 10% OR glucagon (human recombinant), BUpivacaine (pf),ipratropium-albuteroL Assessment: Linda Abel is a 74 y.o. 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 The Medicine service has been consulted for management of hypertension. Given her history of essential hypertension and acute pain, she likely has an acute elevation of her BP on a baseline of hypertension. This morning she required labetalol for systolic blood pressures in the 170s. Her pressures responded very well to this and she tolerated it well. Although she prefers to restart her HCTZ given her hyponatremia its reasonable to try other options first. So for this reason we recommend adding a low dose carvedilol to her HTN regimen. Recommendations: -Start carvedilol 3.125mg BID -Continue amlodipine 5mg qd John Bashir III, MD Internal Medicine - PGY3 Medicine Consults #[phone] x Recommendations discussed with primary treating team. Medicine Consult service will continue to follow. Recommendations are above. Medicine Consult service will sign off. If clinical changes occur or newquestions arise, page [phone]. Case discussed with Dr. Blas Attending staff follow-up documentation Please see Dr. Bashir's note for details of the 24hr events, current issues and clinical course. I have discussed, reviewed and agree with the documented history , physical findings, Assessment and Plan of care. I have examined the patient myself on and reviewed all labs and studies personally. Additions to the history, physical, assessment and plan include the following: As above, she responded well to prn iv labetalol, and this makes sense given her likely high-catecholamine state in setting of anxiety and post-op/inflammatory state, hence the recommendation to add the po carvedilol. DIEGO BLAS MD 04/10/2020 * Josue Lora, RD - 04/09/2020 11:22 AM EST Nutrition Progress Note Patient now s/p robotic whipple now with ileus. Linda Abel is a 74 y.o. female Reason for intervention: TPN Diet:sips Comments:Concentrated TPN provides full nutrition of 1390 calories and 110 g protein (2 g/kg) in 1320 ml. .Potassium decreased to 100 mEq and added 6 mmol of phosphorus. Since diet advanced the magnesium deleted from the TPN(national shortage of magnesium for TPN). No MVI due to national shortage. I was able to discuss plan with provider [id number]. Nutrition Support: TPN Medication Recent History (Show up to 3 orders; newest on the left. Changes between the two most recent orders are indicated.) Start date and time 04/09/2020 1800 04/08/2020 1800 04/07/2020 1800 TPN Adult [[id number]] TPN Adult [[id number]] TPN Adult [[id number]] Order Status Active Active Last Admin New Bag at 04/08/2020 1722 by Inez Lan RN New Bag at 04/07/2020 1901 by Sanjuanita Mercado RN Medications insulin regular human 8 Units 8 Units 8 Units Additives trace elements Zn-Cu-Mn-Se 1 mL 1 mL 1 mL ascorbic acid (vitamin C) 100 mg 100 mg 100 mg Vit [id number]-G9-B5-B6 (B Complex) 1 mL 1 mL 1 mL zinc sulfate 10 mg 10 mg 10 mg Electrolytes sodium phosphate 48 mmol 42 mmol 36 mmol potassium chloride 100 mEq 132 mEq 130 mEq sodium chloride 210 mEq 210 mEq 210 mEq Dextrose dextrose 70% 118 g 118 g 118 g Amino Acids amino acid 15% no.5 (ClinisoL) 110 g 110 g 110 g QS Base sterile water 104.32 mL 90.32 mL 93.32 mL Lipid fat emulsion 30 % 55 g 55 g 55 g Energy Contribution Proteins 440 kcal 440 kcal 440 kcal Dextrose 401.27 kcal 401.27 kcal 401.27 kcal Lipids 549 kcal 549 kcal 549 kcal Total 1,390.27 kcal 1,390.27 kcal 1,390.27 kcal Electrolyte Ion Calculated Amount Sodium 274 mEq 266 mEq 258 mEq Potassium 100 mEq 132 mEq 130 mEq Calcium -- -- -- Magnesium -- -- -- Aluminum -- -- -- Phosphate 50.75 mmol 44.75 mmol 38.75 mmol Chloride 310 mEq 342 mEq 340 mEq Acetate 93.13 mEq 93.13 mEq 93.13 mEq Other Total Amino Acid 110 g 110 g 110 g Total Amino Acid/kg 2.06 g/kg 2.06 g/kg 2.06 g/kg Glucose Infusion Rate 1.54 mg/kg/min 1.54 mg/kg/min 1.54 mg/kg/min Osmolarity (Estimated) 1,874.91 1,911.27 1,896.12 Volume 1,320 mL 1,320 mL 1,320 mL Rate 55 mL/hr 55 mL/hr 55 mL/hr Dosing Weight 53.3 kg 53.3 kg 53.3 kg [facility] Results Component Value Date NA 133 (L) 04/09/2020 K 3.9 04/09/2020 CL 102 04/09/2020 CO2 23 04/09/2020 BUN 15 04/09/2020 CREATININE 0.31 (L) 04/09/2020 GFRAA 96 01/09/2020 ESTGFR 112 04/09/2020 MAGNESIUM 0.78 04/09/2020 CALCIUM 7.7 (L) 04/09/2020 PHOS 2.7 04/09/2020 AST 77 (H) 03/27/2020 ALT 160 (H) 03/27/2020 ALKPHOS 58 03/27/2020 BILITOT 0.4 03/27/2020 HA1C 5.8 (H) 03/30/2020 Lab Results Component Value Date POCGLU 181 04/09/2020 POCGLU 145 04/09/2020 POCGLU 169 04/09/2020 POCGLU 169 04/08/2020 POCGLU 127 04/08/2020 POCGLU 167 04/08/2020 Skin Status: Shift Pressure Injury Prevention Occiput: No Injury Thoracic Spine: No Injury Sacral: No Injury Ischial - left: No Injury Ischial - right: No Injury Heel - left: No Injury Heel - right: No Injury Elbow - left: No Injury Elbow - right: No Injury Device Sites: O2 sat monitor, SCD's/venodynes, IV sites Other Sites: ostomy bag over old KHRIS site Relevant medications: Last Bowel Movement: 04/09/20 Intake/Output Summary (Last 24 hours) at 04/09/2020 1122 Last data filed at 04/09/2020 0808 Gross per 24 hour Intake 1897 ml Output 2725 ml Net -828 ml Admit Weight: 54.89 kg Estimated body mass index is 21.5 kg/m?? as calculated from the following: Height as of this encounter: 157.5 cm (5' 2.01). Weight as of this encounter: 53.3 kg (117 lb 9.6 oz). Merigold Body Weight: 50 kg Usual Body Weight: 55 kg Wt Readings from Last 10 Encounters: 03/27/20 53.3 kg (117 lb 9.6 oz) 01/28/20 55.8 kg (123 lb) 01/09/20 54.7 kg (120 lb 9.6 oz) 12/20/19 52.2 kg (115 lb) 12/18/19 54.7 kg (120 lb 9.6 oz) 12/11/19 52.2 kg (115 lb) 12/09/19 55.3 kg (122 lb) 11/25/19 55 kg (121 lb 3.2 oz) 11/15/19 54.4 kg (120 lb) Assessment: Estimated needs: Calories: 1375 (25 kcal/kg) Protein: 110 grams (2g/kg) Nutrition Focused Physical Exam (NFPE): Not performed Nutrition intake and intake history/Interview: NPO/clearsx 6 days. No recent weight loss. Protein-calorie Malnutrition: Not identified (CHRIS Fierro J Parenteral Enteral Nutr. 2012 August; 36(3): 273-83) Nutrition to continue to follow up while inpatient. JOSUE LORA RD Pager #[phone] * GilbertRamírez toussainterika Stoner, MEAL COOKER - 04/09/2020 10:37 AM EST Follow Up Diabetes Consult Patient Interview Diet advanced to full liquid Surg onc note 04/09: Per case mgmt swing beds, and SNFs cannot take patient while on TPN and rehab will not take her since PT/OT cleared patient for home. Will likely need to be discharged to home on home TPN as marginalulcer will take time to heal. If she is unable to tolerate her PO diet, she may require surgical intervention. ?? Plan for possible discharge 04/11. Objective Temp: [36.8 ??C (98.2 ??F)-37.2 ??C (99 ??F)] Heart Rate: [87-91] Resp: [20] BP: (145-173)/(82-103) SpO2: [91 %-94 %] Heart Rate from SpO2: [82 bpm-91 bpm] Current Regimen from previous note Lispro for correction q??4??hours using ??correction scale Diet?? sips and chips TPN - 1:15 I:C ratio?? Recent Glucose Levels Recent Labs 04/09/20 0805 04/09/20 0518 04/09/20 0052 04/08/20 2103 04/08/20 1542 04/08/20 1231 04/08/20 0728 04/08/20 0325 04/08/20 0006 04/07/20 1942 04/07/20 1546 04/07/20 1118 POCGLU 181 145 169 169 127 167 199 146 152 137 148 154 ASSESSMENT ?? Patient is a??74 y.o.??years??old female??with??NO??PMH??of??DM who was admitted on??03/23/2020??for??IPMN s/p robotic whipple on 03/23. She has required very little insulin during hospitalization. Would not recommend subcutaneous inuslin at discharge, she has met with Gina PACHECO CDE and has been provided with a BG monitor she willnee a Rx for test strips and lancets. Primary team paged to discuss waiting call back. If discharged on TPN continue current insulin to carb ratio in TPN PLAN Lispro for correction q??4??hours using ??correction scale Diet?? full liquid with toast TPN - 1:15 I:C ratio??(8 units regular insulin for 118 G dextrose) Katie Santamaria APRN [facility] [place] Endocrinology Diabetes Management Pager [phone] * Larry Longo MD - 04/09/2020 9:21 AM EST Surgical Oncology Inpatient Progress Note Patient Name: Linda MERAZ; Age: 6 1945; 74 y.o. Room/Bed: [address] [place], [place] [address] Today's Date: 04/09/20 ID: Linda Abel is a 74 y.o. female with PMH main duct IPMN, now s/p robotic whipple. Procedures this Hospitalization: 03/23: Robotic whipple 04/02: EGD OR Findings: No metastatic disease. The liver was healthy appearing. The resection was complicated by ergonomic issues given her small size and limited space within the abdomen- this made the resection and reconstruction take longer given instrument limited range of motion. Otherwise the case went well- minimalblood loss. The pancreatic duct measured 1.5 cm and the bile duct though was quite small - only 5-6mm. After completion of the resection and as we were preparing for the reconstruction it appeared that the common hepatic or proper hepatic artery had what looked like purple discoloration and some aneurysmal dilation extending up into a branch that looked like the right hepatic artery. Her completely replaced right hepatic artery though was nicely palpable. It was unclear whether this was just some tracking of blood along the arterial adventitia or some type of dissection? We spent quite a lotof time watching this and looking at the viability/color of the liver and it appeared completely unc hanged throughout the remainder of the case. Reconstruction was an intracoporal retromesenteric anddecide (Blumgart type) duct to mucosa pancreaticojejunostomy. The pancreatic duct was so massively dilated that we could not stent it. The bile duct anastomosis however was somewhat difficult and that it was so tiny and required an interrupted Blumgart-Debra type hepaticojejunostomy with 5-0 PDS. In testinal continuity was restored by bringing the proximal jejunal limb up as a retrocolic/transmesenteric side to side (Billroth II type) handsewn gastrojejunostomy anastomosis. Final inspection at the end of the case revealed excellent hemostasis and the liver really looked completely normal and there was no areas of demarcation. ?? 24 Hour Events/Subjective: - tolerating CLD Hospital Course: POD 0 12: To OR for robotic Whipple, ROEL post-op. [...] ROEL. Advanced to FLD. Awaiting C.diff testing Objective Last value Range last 24hrs Temperature Temp: 36.9 ??C (98.4 ??F) Temp: [36.8 ??C (98.2 ??F)-37.2 ??C (99 ??F)] Heart Rate Heart Rate: 87 Heart Rate: [87-91] Blood Pressure BP: 145/84 BP: (145-173)/(82-103) Respiratory Rate Resp: 20 Resp: [20] SpO2 SpO2: 92 % SpO2: [91 %-94 %] 2L NC Physical Exam Gen: NAD HEENT: Normocephalic, atraumatic CV: RRR Pulm: breathing comfortably on RA, no respiratory distress Abd: non-distended, soft, appropriately TP, robotic sites dressed with dermabond, mild ecchymoses, c/d/i. Ext: SCDs in place Skin: warm, dry 24 Hour I/O's: I/O last 3 completed shifts: In: 3320 [P.O.:200; I.V.:788; IV Piggyback:110] Out: 3225 [Urine:2300; Other:925] Admit Weight: 54.89 kg Current Weight: Weight: 53.3 kg (117 lb 9.6 oz) Labs: Recent Labs 04/09/20 0030 04/08/20 0030 04/07/20 0350 WBC 13.5* 16.1* 13.5* HGB 10.1* 9.8* 9.6* HCT 30.4* 28.6* 28.1* PLATELET 426* 477* 453* Recent Labs 04/09/20 0030 04/08/20 0030 04/07/20 0350 NA 133* 132* 134* K 3.9 3.5 3.6 CL 102 101 101 CO2 24 BUN 15 15 16 CREATININE 0.31* 0.29* 0.34* GLUCOSE 157 147 166 CALCIUM 7.7* 7.7* 7.7* MAGNESIUM 0.78 0.69 0.82 PHOS 2.7 3.1 3.3 LFT's No results found for: ALKPHOS, AST, ALBUMIN, BILIDIR, BILITOT, ALT, PROT KHRIS Amylase: 03/24: 26 129: 22 1210: 15 1211: 327 12: 12 Micro: Bile duct cx (03/23): NGTD New Imaging: None Assessment / Plan: Linda Abel is a 74 y.o. female with PMH breast ca, HTN, pancreatic IPMN, POD 11 s/p robotic Whipple. Her hospital course is now complicated by ulceration at the GJ anastomosis. Initial work up for nausea and vomiting included a CT scan which showed a dilated stomach and contrast refluxing into the biliopancreatic limb. There was concern for ulceration or obstruction. An EGD was obtained which showed ulceration at the GJ anastomosis. Has been tolerating sips and chips with no n/v. Advance to FLD today. Currently being treated with ceftriaxone and flagyl for presumed aspiration pneumonia. WBC stable/downtrending 13 (16). Continue c.diff precautions and follow up testing. Per case mgmt swing beds, and SNFs cannot take patient while on TPN and rehab will not take her since PT/OT cleared patient for home. Will likely need to be discharged to home on home TPN as marginalulcer will take time to heal. If she is unable to tolerate her PO diet, she may require surgical intervention. Plan for possible discharge 04/11. NEURO: Ok for tylenol, toradol, lidoderm patches. Oxy PRN CV: SBPs have been 160-170s. Started on amlodipine 5mg qdaily per medicine recs PULM: Encourage OOB/IS, home albuterol (duoneb) PRN Aspiration PNA: Flagyl/ceftriaxone GI/FEN: #delayed gastric emptying s/p whipple. -Ulcerations at GJ: PPI BID -CLD (+ toast) -TPN given poor PO intake with #moderate protein and caloric malnutrition. RENAL: UOP adequate ENDO: Holding home Arimidex, ISS HEME: DVT ppx Lovenox ID: periop antibiotics, BD cultures NG, Ceftriaxone/Flagyl, C. Diff screen/precautions MSK: OOB today PPX: PPI, IS, SCDs LINES: PIV DISPO: Floor status, Attempt Cardiopulmonary Resuscitation - Inpatient Signed: Larry Longo MD Surgical Oncology Service Team Pager #[phone] 04/09/20 9:21 AM * Josue Lora RD - 04/08/2020 10:47 AM EST Nutrition Progress Note Patient now s/p robotic whipple now with ileus. Linda Abel is a 74 y.o. female Reason for intervention: TPN Diet:sips Comments:Concentrated TPN provides full nutrition of 1390 calories and 110 g protein (2 g/kg) in 1320 ml.. Added 2 mEq of potassium (at max. Concentration of 100 mEq/l) and added 6 mmol of phosphorus. Sodium at 1 1/4 normal saline Since diet advanced the magnesium deleted from the TPN(national shortage of magnesium for TPN). No MVI due to national shortage. I was able to discuss plan with provider [id number]. Nutrition Support: TPN Medication Recent History (Show up to 3 orders; newest on the left. Changes between the two most recent orders are indicated.) Start date and time 04/08/2020 1800 04/07/2020 1800 04/06/2020 1800 TPN Adult [[id number]] TPN Adult [[id number]] TPN Adult [[id number]] Order Status Active Active Last Admin New Bag at 04/07/2020 1901 by Sanjuanita Mercado, RN New Bag at 04/06/2020 1824 by Maria Esther Blancas RN Medications insulin regular human 8 Units 8 Units 8 Units Additives trace elements Zn-Cu-Mn-Se 1 mL 1 mL 1 mL ascorbic acid (vitamin C) 100 mg 100 mg 100 mg Vit D7-I3-O9-B5-B6 (B Complex) 1 mL 1 mL 1 mL zinc sulfate 10 mg 10 mg 10 mg Electrolytes sodium phosphate 42 mmol 36 mmol 36 mmol potassium chloride 132 mEq 130 mEq 100 mEq sodium chloride 210 mEq 210 mEq 150 mEq Dextrose dextrose 70% 118 g 118 g 118 g Amino Acids amino acid 15% no.5 (ClinisoL) 110 g 110 g 110 g QS Base sterile water 90.32 mL 93.32 mL 123.32 mL Lipid fat emulsion 30 % 55 g 55 g 55 g Energy Contribution Proteins 440 kcal 440 kcal 440 kcal Dextrose 401.27 kcal 401.27 kcal 401.27 kcal Lipids 549 kcal 549 kcal 549 kcal Total 1,390.27 kcal 1,390.27 kcal 1,390.27 kcal Electrolyte Ion Calculated Amount Sodium 266 mEq 258 mEq 198 mEq Potassium 132 mEq 130 mEq 100 mEq Calcium -- -- -- Magnesium -- -- -- Aluminum -- -- -- Phosphate 44.75 mmol 38.75 mmol 38.75 mmol Chloride 342 mEq 340 mEq 250 mEq Acetate 93.13 mEq 93.13 mEq 93.13 mEq Other Total Amino Acid 110 g 110 g 110 g Total Amino Acid/kg 2.06 g/kg 2.06 g/kg 2.06 g/kg Glucose Infusion Rate 1.54 mg/kg/min 1.54 mg/kg/min 1.54 mg/kg/min Osmolarity (Estimated) 1,911.27 1,896.12 1,759.76 Volume 1,320 mL 1,320 mL 1,320 mL Rate 55 mL/hr 55 mL/hr 55 mL/hr Dosing Weight 53.3 kg 53.3 kg 53.3 kg [facility] Results Component Value Date NA 132 (L) 04/08/2020 K 3.5 04/08/2020 CL 101 04/08/2020 CO2 24 04/08/2020 BUN 15 04/08/2020 CREATININE 0.29 (L) 04/08/2020 GFRAA 96 01/09/2020 ESTGFR 115 04/08/2020 MAGNESIUM 0.69 04/08/2020 CALCIUM 7.7 (L) 04/08/2020 PHOS 3.1 04/08/2020 AST 77 (H) 03/27/2020 ALT 160 (H) 03/27/2020 ALKPHOS 58 03/27/2020 BILITOT 0.4 03/27/2020 HA1C 5.8 (H) 03/30/2020 Lab Results Component Value Date POCGLU 199 04/08/2020 POCGLU 146 04/08/2020 POCGLU 152 04/08/2020 POCGLU 137 04/07/2020 POCGLU 148 04/07/2020 POCGLU 154 04/07/2020 Skin Status: Shift Pressure Injury Prevention Occiput: No Injury Thoracic Spine: No Injury Sacral: No Injury Ischial - left: No Injury Ischial - right: No Injury Heel - left: No Injury Heel - right: No Injury Elbow - left: No Injury Elbow - right: No Injury Device Sites: O2 sat monitor, SCD's/venodynes, IV sites Other Sites: ostomy bag over old KHRIS site Relevant medications: Last Bowel Movement: 04/07/20 Intake/Output Summary (Last 24 hours) at 04/08/2020 1047 Last data filed at 04/08/2020 0800 Gross per 24 hour Intake 1834 ml Output 2325 ml Net -491 ml Admit Weight: 54.89 kg Estimated body mass index is 21.5 kg/m?? as calculated from the following: Height as of this encounter: 157.5 cm (5' 2.01). Weight as of this encounter: 53.3 kg (117 lb 9.6 oz). Merigold Body Weight: 50 kg Usual Body Weight: 55 kg Wt Readings from Last 10 Encounters: 03/27/20 53.3 kg (117 lb 9.6 oz) 01/28/20 55.8 kg (123 lb) 01/09/20 54.7 kg (120 lb 9.6 oz) 12/20/19 52.2 kg (115 lb) 12/18/19 54.7 kg (120 lb 9.6 oz) 12/11/19 52.2 kg (115 lb) 12/09/19 55.3 kg (122 lb) 11/25/19 55 kg (121 lb 3.2 oz) 11/15/19 54.4 kg (120 lb) Assessment: Estimated needs: Calories: 1375 (25 kcal/kg) Protein: 110 grams (2g/kg) Nutrition Focused Physical Exam (NFPE): Not performed Nutrition intake and intake history/Interview: NPO/clearsx 6 days. No recent weight loss. Protein-calorie Malnutrition: Not identified (CHRIS Fierro J Parenteral Enteral Nutr. 2011; 36(3): 273-83) Nutrition to continue to follow up while inpatient. JOSUE LORA RD Pager #[phone] * Davian Carolina MD - 04/08/2020 8:18 AM EST Surgical Oncology Inpatient Progress Note Patient Name: Linda MERAZ; Age: 6 1945; 74 y.o. Room/Bed: 207/207-A Today's Date: 04/08/20 ID: Linda Abel is a 74 y.o. female with PMH main duct IPMN, now s/p robotic whipple. Procedures this Hospitalization: 03/23: Robotic whipple 04/02: EGD OR Findings: No metastatic disease. The liver was healthy appearing. The resection was complicated by ergonomic issues given her small size and limited space within the abdomen- this made the resection and reconstruction take longer given instrument limited range of motion. Otherwise the case went well- minimalblood loss. The pancreatic duct measured 1.5 cm and the bile duct though was quite small - only 5-6mm. After completion of the resection and as we were preparing for the reconstruction it appeared that the common hepatic or proper hepatic artery had what looked like purple discoloration and some aneurysmal dilation extending up into a branch that looked like the right hepatic artery. Her completely replaced right hepatic artery though was nicely palpable. It was unclear whether this was just some tracking of blood along the arterial adventitia or some type of dissection? We spent quite a lotof time watching this and looking at the viability/color of the liver and it appeared completely unc hanged throughout the remainder of the case. Reconstruction was an intracoporal retromesenteric anddecide (Blumgart type) duct to mucosa pancreaticojejunostomy. The pancreatic duct was so massively dilated that we could not stent it. The bile duct anastomosis however was somewhat difficult and that it was so tiny and required an interrupted Blumgart-Debra type hepaticojejunostomy with 5-0 PDS. Intestinal continuity was restored by bringing the proximal jejunal limb up as a retrocolic/transmesenteric side to side (Billroth II type) handsewn gastrojejunostomy anastomosis. Final inspection at the end of the case revealed excellent hemostasis and the liver really looked completely normal and there was no areas of demarcation. ?? 24 Hour Events/Subjective: - Tolerating sips and chips with no n/v - Had increased liquidy bowel movements overnight and WBC increased from 13.5 -> 16.1 Hospital Course: POD 0 03/23: To OR [...] 04/07: No changes, tolerating sips and chips Objective Last value Range last 24hrs Temperature Temp: 37.2 ??C (99 ??F) Temp: [37 ??C (98.6 ??F)-37.2 ??C (99 ??F)] Heart Rate Heart Rate: 96 Heart Rate: [96-97] Blood Pressure BP: (!) 163/103 BP: (163-169)/(103-105) Respiratory Rate Resp: 20 Resp: [20-24] SpO2 SpO2: 92 % SpO2: [91 %-94 %] 2L NC Physical Exam Gen: NAD HEENT: Normocephalic, atraumatic CV: RRR Pulm: breathing comfortably on RA, no respiratory distress Abd: non-distended, soft, appropriately TP, robotic sites dressed with dermabond, mild ecchymoses, c/d/i. Ext: SCDs in place Skin: warm, dry 24 Hour I/O's: I/O last 3 completed shifts: In: 2977 [P.O.:250; I.V.:673; IV Piggyback:110] Out: 4400 [Urine:3800; Other:600] Admit Weight: 54.89 kg Current Weight: Weight: 53.3 kg (117 lb 9.6 oz) Labs: Recent Labs 04/08/20 0030 04/07/20 0350 04/06/20 0130 WBC 16.1* 13.5* 16.7* HGB 9.8* 9.6* 9.2* HCT 28.6* 28.1* 27.3* PLATELET 477* 453* 445* Recent Labs 04/08/200 04/07/20 0350 04/06/20 0130 NA 132* 134* 137 K 3.5 3.6 3.6 CL 101 101 102 CO2 24 24 26 BUN 15 16 16 CREATININE 0.29* 0.34* 0.42* GLUCOSE 147 166 180 CALCIUM 7.7* 7.7* 7.7* MAGNESIUM 0.69 0.82 0.88 PHOS 3.1 3.3 3.3 LFT's No results found for: ALKPHOS, AST, ALBUMIN, BILIDIR, BILITOT, ALT, PROT KHRIS Amylase: 8: 26 129: 22 1210: 15 1211: 327 12: 12 Micro: Bile duct cx (03/23): NGTD New Imaging: None Assessment / Plan: Linda Abel is a 74 y.o. female with PMH breast ca, HTN, pancreatic IPMN, POD 11 s/p robotic Whipple. Her hospital course is now complicated by ulceration at the GJ anastomosis. Initial work up for nausea and vomiting included a CT scan which showed a dilated stomach and contrast refluxing into the biliopancreatic limb. There was concern for ulceration or obstruction. An EGD was obtained which showed ulceration at the GJ anastomosis. Has been tolerating sips and chips with no n/v. Currently being treated with ceftriaxone and flagylfor presumed aspiration pneumonia but WBC increased from 13.5 -> 16.1 today with increased liquidy bowel movements overnight. Put on C. Diff precautions and C. Diff screen sent. Per case mgmt swing beds, and SNFs cannot take patient while on TPN and rehab will not take her since PT/OT cleared patient for home. Will likely need to be discharged to home on home TPN as marginalulcer will take time to heal. If she is unable to tolerate her PO diet, she may require surgical intervention. Medicine consulted yesterday for HTN. Thought to likely due to a combination of unresolved infection and pain. Stared on amlodipine per medicine recs. NEURO: Ok for tylenol, toradol, lidoderm patches. Oxy PRN CV: SBPs have been 160-170s. Started on amlodipine 5mg qdaily per medicine recs PULM: Encourage OOB/IS, home albuterol (duoneb) PRN Aspiration PNA: Flagyl/ceftriaxone GI/FEN: #delayed gastric emptying s/p whipple. -Ulcerations at GJ: PPI BID -CLD (+ toast) -TPN given poor PO intake with #moderate protein and caloric malnutrition. RENAL: UOP adequate ENDO: Holding home Arimidex, ISS HEME: DVT ppx Lovenox ID: periop antibiotics, BD cultures NG, Ceftriaxone/Flagyl, C. Diff screen/precautions MSK: OOB today PPX: PPI, IS, SCDs LINES: PIV DISPO: Floor status, Attempt Cardiopulmonary Resuscitation - Inpatient Signed: Edwardo Mccormack MD Surgical Oncology Service Team Pager #[phone] 04/08/20 8:18 AM Surgery Attending Addendum I have seen and examined Maricruz this am. I have reviewed the laboratory data.?My exam is unchangedfrom Dr. Mccormack's note above. The assessment and plan were formulated in discussion with me and I agreewith them as documented. She looked better than when I saw last. She was resting in the bed but had been in the chair earlier this am. Contact precautions in place until c.diff testing back- they sent a sample this am. HTN still an issue. She is receiving insulin in her TPN. She seems to be tolerating sips of tea and liquids. We can start transition to po meds tomorrow. Dispo plan is home with VNA, PT/OT. We appreciate Alesha working with Maricruz and her son Roberto Carlos to find a home TPN solution as she does not meet criteria for a [facility] facility. Jennifer Carolina MD 04/08/2020 10:36 AM * John Bashir III, MD - 04/08/2020 8:16 AM EST Medicine Consults Progress Note Consult Team/Pager: ID:Linda Abel is a 74 y.o. female with PMHx significant for HTN and a pancreatic main duct IPMN who received a Robotic Whipple on 03/23. 24 Hour Events/Subjective: - Having loose stools and WBC increased so c.diff ordered. - Patient reports her cough is worsening but doesn't feel more short of breath. - Received 1st dose of amlodipine this AM Vitals: Temp: Temp: [37 ??C (98.6 ??F)-37.2 ??C (99 ??F)] Heart Rate: [96-97] Resp: [20-24] BP: (163-169)/(103-105) Ins/Outs: Intake/Output Summary (Last 24 hours) at 04/08/2020 0816 Last data filed at 04/08/2020 0559 Gross per 24 hour Intake 2317 ml Output 2525 ml Net -208 ml Weights: Admit weight: 54.89 kg No data found. Physical Exam: Gen: Uncomfortable appearing in bed. CVS: RRR with normal S1/S2, no appreciable m/r/g Pulm: CTA b/l, no crackles or wheeze Course cough is present. Abd: soft, NT, non-distended Ext: WWP, no edema, no clubbing, no cyanosis. Chest/Back: no spinal tenderness, no CVAT Skin: Intact with no rashes, petechiae, or ecchymoses Neuro:A&OX3 Labs: Recent Labs 04/08/20 0030 04/07/20 0350 04/06/20 0130 WBC 16.1* 13.5* 16.7* HGB 9.8* 9.6* 9.2* HCT 28.6* 28.1* 27.3* PLATELET 477* 453* 445* Recent Labs 04/08/20 0030 04/07/20 0350 04/06/20 0130 NA 132* 134* 137 K 3.5 3.6 3.6 CL 101 101 102 CO2 24 24 26 BUN 15 16 16 CREATININE 0.29* 0.34* 0.42* No results for input(s): AST, ALT, ALKPHOS, BILITOT, BILIDIR in the last 168 hours. Recent Labs 04/08/20 0030 04/07/20 0350 04/06/20 0130 CALCIUM 7.7* 7.7* 7.7* MAGNESIUM 0.69 0.82 0.88 PHOS 3.1 3.3 3.3 No results for input(s): INR, PT, PTT in the last 168 hours. No results for input(s): CK, TROPONINT in the last 168 hours. Recent Labs 04/08/20 0728 04/08/20 0325 04/08/20 0006 04/07/20 1942 04/07/20 1546 04/07/20 1118 POCGLU 199 146 152 137 148 154 Microbiology: Microbiology Results (Last 30 days) Procedure Component Value Units Date/Time Body Fluid Culture, Aerobic & Anaerobic Bile [[id number]] Collected: 03/23/20 134 Lab Status: Final result Specimen: Bile Updated: 03/27/20 1333 Body Fluid Culture, Aerobic [[id number]] Collected: 03/23/20 134 Lab Status: Final result Specimen: Bile Updated: 03/27/20 133 Body Fluid Culture No growth Gram Stain -- Cytocentrifuge Gram Stain performed Neutrophils seen No microorganisms seen. Anaerobic Culture [[id number]] Collected: 03/23/20 134 Lab Status: Final result Specimen: Bile Updated: 03/27/20 1117 Anaerobic Culture No anaerobic organisms isolated COVID-19 PCR [[id number]] Collected: 03/20/20 1057 Lab Status: Final result Specimen: Nasopharyngeal Swab Updated: 03/20/20 1720 SARS-CoV-2 RNA Not Detected Comment: This result should be interpreted in combination with the clinical observations, patient history and epidemiological information in making a final diagnosis. For testing of asymptomatic individuals, assay performance characteristics and clinical utility have not been evaluated. Testing for SARS-CoV-2 (Severe acute respiratory syndrome coronavirus 2, formerly known as 2019 novel coronavirus or 2019-nCoV) to aid in the diagnosis of COVID-19 is performed using the [employer] m SARS-CoV-2 Assay as authorized by the FDA Emergency Use Authorization (EUA). This EUA assay is intended for In-vitro Diagnostic (IVD) use with respiratory specimens such as nasopharyngeal swabs collected from individuals during the acute phase of infection. This assay is performed based on the instructions for use provided by [employer] and additional guidance provided by CDC and FDA. Testing is performed in the [facility] within the Department of Pathology and Laboratory Medicine at [facility], certified under the Clinical Laboratory Improvement Amendments of 1988 (CLIA), 42 U.S.C. 263a, to perform high complexity tests. Assay performance has been verified according to clinical laboratory regulatory requirements for use with specimens collected from individuals suspected of COVID-19. Test results are provided above. A result of ???Not Detected?? indicates that the viral RNA target is not present above the limit of detection, but does not preclude SARS-CoV-2 infection. False negative results may occur if a specimen is improperly collected, transported or handled; if amplification inhibitors are present; or if inadequate numbers of viral particles are present in the specimen. When a diagnostic test is negative, the possibility of a false negative result should be considered in the context of a patient???s recent exposures and the presence of clinical signs and symptoms consistent with COVID-19. A result of ???Detected?? indicates that RNA from SARS-CoV-2 was detected and the patient is infected. As required or requested by public health authorities, positive specimens may be sent for additional testing. Positive and negative predictive values for this test are highly dependent on disease prevalence. A result of ???Invalid?? indicates that neither the viral RNA targets nor the internal control target was detected. An invalid result suggests the presence of inhibitors. Recollection and re-testing is recommended in the case of an invalid result. CDC COVID-19 criteria for testing on human specimens and clinical management guidance information are available at the CDC Coronavirus Disease 2019 (COVID-19) webpage under ???Information for Healthcare Professionals?? (https://www.cdc.gov/coronavirus/2019-ncov/hcp/index.html) Additional information about this and other EUA tests can be found in provider and patient fact sheets at the following FDA website: https://www.fda.gov/medical-devices/lgmgflfzpet-kfmrrqt-8724-htkut-36-lrfvlcvnq- wjx-lgssrfwttsdhfs-zmqhztb-devices/zaesf-elloyeihhfn-cbrp SARS-Cov-2 RNA Source BAG CHECKER Swab Diagnostic Studies: None new Inpatient Medications: Scheduled Meds: ??? magnesium sulfate in sodium chloride 0.9% 100 mL 2 g Intravenous Once ??? insulin lispro 1-4 Units Subcutaneous Q4H LUZ ??? cefTRIAXone 1 g Intravenous Q24H ??? metroNIDAZOLE 500 mg Intravenous Q8H ??? metoclopramide 10 mg Intravenous Q6H LUZ ??? pantoprazole 40 mg Intravenous BID ??? lidocaine 2 patch Transdermal Q24H And ??? lidocaine 1 patch Transdermal Q24H ??? sodium chloride 0.9 % (flush) 5 mL Intravenous BID ??? enoxaparin 40 mg Subcutaneous Nightly Continuous Infusions: ??? TPN Adult 55 mL/hr at 04/07/20 1901 PRN Meds: labetaloL, phenol 1.4%, HYDROmorphone, sodium chloride 0.9 % (flush), lidocaine, ondansetron, naloxone, glucose 40% oral geL OR dextrose 10% OR glucagon (human recombinant), BUpivacaine (pf),ipratropium-albuteroL Assessment: Linda Abel is a 74 y.o. 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 The Medicine service has been consulted for management of hypertension. Given her history of essential hypertension and acute pain, she likely had an acute elevation of her BP on a baseline of hypertension. WIll continue to monitor her blood pressures. Recommendations: -Continue amlodipine 5mg qd John Bashir III, MD Internal Medicine - PGY3 Medicine Consults #[phone] x Recommendations discussed with primary treating team. Medicine Consult service will continue to follow. Recommendations are above. Medicine Consult service will sign off. If clinical changes occur or newquestions arise, page [phone]. Case discussed with Dr. Bals * Alesha Casillas RN - 04/07/2020 3:07 PM EST OFFICE OF CARE MANAGEMENT Social Work Professor Follow-up Note Alesha Casillas RN reviewed record and discussed patient with Care Team. Patient plan of care discussed in multidisciplinary rounds and assessment for continuing care and discharge needs. Diagnosis: IPMN (intraductal papillary mucinous neoplasm) LOS Hospital: 15 days INSURANCE: Payor: MEDICARE / Plan: MEDICARE PART A & B / Product Type: *No Product type* / SECONDARY INSURANCE: [employer] [facility] DECISION MAKER: Attempt Cardiopulmonary Resuscitation - Inpatient <no information> Patient continues to require hospitalization. Discharge date planned for 04/10 if medically ready. Patient will be discharged on TPN. Discussed with patient and patient's son regarding the possibility of going home with TPN needs. Son asked if he could call back tomorrow at 7am and have a conference call with family to discuss possible discharge plans. Updates team. Current Referral in place: [facility], [facility], [place], [facility] Transportation: Son will drive patient home via private vehicle when medically ready. Support: Son Social Work Professor to follow with team and family to assist with discharge needs when patient ready for discharge. Alesha Casillas RN, BSN Case Management pgr [phone] * Catie Diggs RN - 04/07/2020 1:00 PM EST Images from the original note were not included. Routine PICC dressing change. Uneventful. Arm circumference increased from last week, but was 2cm less than what it was when PICC was placed. Therefore could just be objective difference in where measured. No complaints. * Josue Lora RD - 04/07/2020 11:50 AM EST Nutrition Progress Note Patient now s/p robotic whipple now with ileus. Linda Abel is a 74 y.o. female Reason for intervention: TPN Diet:sips Comments:Concentrated TPN provides full nutrition of 1390 calories and 110 g protein (2 g/kg) in 1320 ml.. Added 30 mEq of potassium. Sodium increased to 1 1/4 normal saline Since diet advanced the magnesium deleted from the TPN(national shortage of magnesium for TPN). No MVI due to national shortage. I was able to discuss plan with provider [id number]. Nutrition Support: TPN Medication Recent History (Show up to 3 orders; newest on the left. Changes between the two most recent orders are indicated.) Start date and time 04/07/2020 1800 04/06/2020 1800 04/03/2020 1800 TPN Adult [[id number]] TPN Adult [[id number]] TPN Adult [[id number]] Order Status Active Active Last Admin New Bag at 04/06/20201823 by Maria Esther Blancas RN New Bag at 04/05/20201819 by Mervin Grimes, RN Medications insulin regular human 8 Units 8 Units 6 Units Additives trace elements Zn-Cu-Mn-Se 1 mL 1 mL 1 mL ascorbic acid (vitamin C) 100 mg 100 mg -- Vit C7-Q1-P2-B5-B6 (B Complex) 1 mL 1 mL 1 mL zinc sulfate 10 mg 10 mg 10 mg Pedi multivitamin -- -- 1 mL Electrolytes sodium phosphate 36 mmol 36 mmol 36 mmol potassium chloride 130 mEq 100 mEq 80 mEq sodium chloride 210 mEq 150 mEq 230 mEq calcium gluconate -- -- 8 mEq magnesium sulfate -- -- 16 mEq Dextrose dextrose 70% 118 g 118 g 118 g Amino Acids amino acid 15% no.5 (ClinisoL) 110 g 110 g 110 g QS Base sterile water 93.32 mL 123.32 mL 571.4 mL Lipid fat emulsion 30 % 55 g 55 g 55 g Energy Contribution Proteins 440 kcal 440 kcal 440 kcal Dextrose 401.27 kcal 401.27 kcal 401.27 kcal Lipids 549 kcal 549 kcal 549 kcal Total 1,390.27 kcal 1,390.27 kcal 1,390.27 kcal Electrolyte Ion Calculated Amount Sodium 258 mEq 198 mEq 278 mEq Potassium 130 mEq 100 mEq 80 mEq Calcium -- -- 8 mEq Magnesium -- -- 16 mEq Aluminum -- -- -- Phosphate 38.75 mmol 38.75 mmol 38.75 mmol Chloride 340 mEq 250 mEq 310 mEq Acetate 93.13 mEq 93.13 mEq 93.13 mEq Other Total Amino Acid 110 g 110 g 110 g Total Amino Acid/kg 2.06 g/kg 2.06 g/kg 2.06 g/kg Glucose Infusion Rate 1.54 mg/kg/min 1.54 mg/kg/min 1.54 mg/kg/min Osmolarity (Estimated) 1,896.12 1,759.76 1,383.82 Volume 1,320 mL 1,320 mL 1,800 mL Rate 55 mL/hr 55 mL/hr 75 mL/hr Dosing Weight 53.3 kg 53.3 kg 53.3 kg [facility] Results Component Value Date NA 134 (L) 04/07/2020 K 3.6 04/07/2020 CL 101 04/07/2020 CO2 24 04/07/2020 BUN 16 04/07/2020 CREATININE 0.34 (L) 04/07/2020 GFRAA 96 01/09/2020 ESTGFR 109 04/07/2020 MAGNESIUM 0.82 04/07/2020 CALCIUM 7.7 (L) 04/07/2020 PHOS 3.3 04/07/2020 AST 77 (H) 03/27/2020 ALT 160 (H) 03/27/2020 ALKPHOS 58 03/27/2020 BILITOT 0.4 03/27/2020 HA1C 5.8 (H) 03/30/2020 Lab Results Component Value Date POCGLU 154 04/07/2020 POCGLU 138 04/07/2020 POCGLU 160 04/07/2020 POCGLU 159 04/06/2020 POCGLU 145 04/06/2020 POCGLU 177 04/06/2020 POCGLU 156 04/06/2020 Skin Status: Shift Pressure Injury Prevention Occiput: No Injury Thoracic Spine: No Injury Sacral: No Injury Ischial - left: No Injury Ischial - right: No Injury Heel - left: No Injury Heel - right: No Injury Elbow - left: No Injury Elbow - right: No Injury Device Sites: O2 sat monitor, SCD's/venodynes, IV sites Other Sites: ostomy bag over old KHRIS site Relevant medications: Last Bowel Movement: 03/31/20 Intake/Output Summary (Last 24 hours) at 04/07/2020 1150 Last data filed at 04/07/2020 1121 Gross per 24 hour Intake 3071 ml Output 3075 ml Net -4 ml Admit Weight: 54.89 kg Estimated body mass index is 21.5 kg/m?? as calculated from the following: Height as of this encounter: 157.5 cm (5' 2.01). Weight as of this encounter: 53.3 kg (117 lb 9.6 oz). [place] Body Weight: 50 kg Usual Body Weight: 55 kg Wt Readings from Last 10 Encounters: 03/27/20 53.3 kg (117 lb 9.6 oz) 01/28/20 55.8 kg (123 lb) 01/09/20 54.7 kg (120 lb 9.6 oz) 12/20/19 52.2 kg (115 lb) 12/18/19 54.7 kg (120 lb 9.6 oz) 12/11/19 52.2 kg (115 lb) 12/09/19 55.3 kg (122 lb) 11/25/19 55 kg (121 lb 3.2 oz) 11/15/19 54.4 kg (120 lb) Assessment: Estimated needs: Calories: 1375 (25 kcal/kg) Protein: 110 grams (2g/kg) Nutrition Focused Physical Exam (NFPE): Not performed Nutrition intake and intake history/Interview: NPO/clearsx 6 days. No recent weight loss. Protein-calorie Malnutrition: Not identified (Vadim, JPEN J Parenteral Enteral Nutr. 2012 August; 36(3): 273-83) Nutrition to continue to follow up while inpatient. JOSUE LORA RD Pager #[phone] * Diego Blas MD - 04/07/2020 11:17 AM EST Internal Medicine Initial Consult Note Admit date: Hospital day: Service: Primary Attending Consult Attending 03/23/2020 15 General Surgery Davian Carolina MD Reason for Consult: Management of Hypertension HPI: Linda Abel is a 74 y.o. female with PMHx significant for HTN and a pancreatic main duct IPMN who received a Robotic Whipple on 03/23. 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 She also required TPN that was continued until 03/29. The grade of her hypertension has fluctuated, going from a BP within goal from 03/25 - 03/28 to persistent levels of hypertension >170/90 from 03/28 until today. Her goal BP, noted by her age and absence of T2DM is <150/90. Per chart review, she has had documented hypertension on outpatient visit, with the most recent being in January 2020. She notes that she has been diagnosed with HTN in the past, and had been on HCTZ that she discontinued approximately 2 years ago. Of note, she has had post-operative abdominal discomfort. She denies a history of diabetes and hyperthyroidism. She denies palpitations, chest pain, headaches, lightheadedness, fevers, chills, diaphoresis. Interval History: Over the last few days she has been treated for a possible aspiration PNA with ceftriaxone. Yesterday her blood pressures were elevated to the 160's systolic. She has been on HCTZ 25mg qd since admission and her HCTZ was held for hyponatremia. It has not been restarted. Her blood pressures have been in the 130s-170s systolic since then. Past Medical History/Problem List Patient Active Problem List Diagnosis Code ??? [...] Z17.0 ??? Pre-diabetes R73.03 ??? Gastroparesis K31.84 Past Medical History: Diagnosis Date ??? Basal cell carcinoma 2009 [facility]-back ??? Breast cancer ??? Pre-diabetes 03/30/2020 Meds: No current facility-administered medications on file prior to encounter. Current Outpatient Medications on File Prior to Encounter Medication Sig Dispense Refill ??? aspirin EC 81 mg Tablet, Delayed Release (E.C.) Take 81 mg by mouth daily. ??? b complex vitamins Capsule Take 1 capsule by mouth daily. ??? CALCIUM CARBONATE-VITAMIN D3 ORAL Take 1 tablet by mouth daily. ??? pravastatin (Pravachol) 20 mg Tablet Take 20 mg by mouth daily. ??? albuteroL 90 mcg/actuation HFA Aerosol Inhaler Inhale 1-2 puffs into the lungs every 4 hours asneeded. ??? fluticasone propionate (FLONASE) 50 mcg/actuation [place], Suspension 1 spray by Each Nare route daily as needed. ??? anastrozole (Arimidex) 1 mg Tablet Take 1 tablet by mouth daily. Start mid January 2020. 90 tablet 3 ??? Wixela Inhub 500-50 mcg/dose Disk with Device Inhale 1 puff into the lungs 2 times daily. ??? omeprazole (PriLOSEC) 20 mg Capsule, Delayed Release(E.C.) Take 20 mg by mouth every other day. ??? cholecalciferol, Vitamin D3, 1,000 unit Capsule Take 1,000 Units by mouth daily. ??? multivit,iron,minerals/lutein (CENTRUM SILVER ULTRA WOMEN'S ORAL) Take 1 tablet by mouth daily. ??? magnesium oxide 400 mg magnesium Capsule Take 1 capsule by mouth daily. ??? fish oil-omega-3 fatty acids 1,000 mg Capsule Take 1 g by mouth daily. Allergies: Allergies Allergen Reactions ??? House Dust Past Surgical History Past Surgical History: Procedure Laterality Date ??? CREATED BY INTERFACE BREAST BIOPSY / RT/MULTIPLE Procedure Date: 01/23/2001 ??? CREATED BY INTERFACE COLONOSCOPY (ENDO) Procedure Date: 12/24/2003 ??? CREATED BY INTERFACE Entered not Verified Procedure Date: 01/22/2010 ??? CREATED BY INTERFACE MODIFIED RADICAL MASTECTOMY / RT Procedure Date: 02/06/2001 ??? MAMMO STEREOTACTIC BIOPSY LEFT N/A 12/05/2019 Mammo Stereotactic Biopsy Left 12/05/2019 [facility] RAD MAMMOGRAPHY ??? MASTECTOMY Right with RT ??? PRO BX/REMV, LYMPH NODE, DEEP AXILL Left 12/20/2019 BIOPSY OR EXCISION OF LYMPH NODE(S), OPEN, DEEP AXILLARY NODE(S) (WRVU 6.43) performed by Susan Rivera MD at [facility] ??? PRO COLONOSCOPY, DIAGNOSTIC 01/07/2014 COLONOSCOPY, DIAGNOSTIC performed by Izzy Johnson MD at [facility] ??? PRO ENDOSCOPIC US EXAM, ESOPH N/A 11/15/2019 UPPER EUS- ENDOSCOPIC ULTRASOUND performed by Ralf Urrutia MD at [facility] ??? PRO INTRAOP SENTINEL LYMPH ID W/DYE INJECTION Left 12/20/2019 INTRAOPERATIVE ID (MAPPING) SENTINEL LYMPH NODE,INCLUDES INJECTION (WRVU 2.5) performed by Susan Rivera MD at [facility] ??? PRO MASTECTOMY, SIMPLE, COMPLETE Left 12/20/2019 MASTECTOMY, SIMPLE, COMPLETE (WRVU 15.85) performed by Susan Rivera MD at [facility] ??? PRO OMENTAL FLAP, INTRA-ABDOMINAL 03/23/2020 @OMENTAL FLAP, INTRA-ABDOMINAL (WRVU 6.54) performed by Davian Carolina MD at [facility] ??? PRO UNLISTED PX PNCRS N/A 03/23/2020 ROBOTIC PANCREATECTOMY,WHIPPLE, PARTIAL GASTRECTOMY W/ PANCREATOJEJUNOSTOMY performed by Davian Carolina MD at [facility] ??? PRO UPPER GI ENDOSCOPY, DIAGNOSTIC N/A 04/02/2020 EGD, UPPER GI ENDOSCOPY performed by Ralf Urrutia MD at [facility] Family History: Siblings: Sister with breast cancer, brother with ASCVD Social History: Tobacco: None Etoh: Did consume 2-3 ETOh beverages a day. Stopped drinking in September 2019 Illicits: None Vitals: Last value Range last 24 hrs Temperature Temp: 37.4 ??C (99.3 ??F) Temp: [36.9 ??C (98.4 ??F)-37.9 ??C (100.2 ??F)] Heart Rate Heart Rate: 100 Heart Rate: [100] Blood Pressure BP: (!) 163/101 BP: (162-172)/(93-102) Respiratory Rate Resp: 22 Resp: [18-28] SpO2 SpO2: 91 % SpO2: [91 %-94 %] I/O last 3 completed shifts: In: 3512 [P.O.:730; I.V.:488; Other:60; IV Piggyback:100] Out: 3450 [Urine:3150; Other:300] Examination: General: Pleasant, alert, appropriate, in NAD. HEENT: EOMI, nonicteric. Oropharynx clear w/o erythema, plaques or exudates or other lesions. No thrush; MMMs Neck: No LAD. No JVD. Cardiac: Normal S1 and S2, Regular rate and rhythm; No murmurs noted. Respiratory: Nonlabored. Clear to auscultation bilaterally; No wheezes or crackles. Abd: + BS; tender to palpation. Well-healed midline scar. RUQ ostomy site that is draining well with no surrounding erythema. Ext: No edema, cyanosis, clubbing. Neuro: II-XII grossly intact. Alert and orientated, no-focal deficits, sensation intact to crude touch, motor strength 5/5 throughout Skin: No rashs, no lesions, no petechiae Laboratory: CBC: Recent Labs 04/07/20 0350 04/06/20 0130 04/05/20 0110 WBC 13.5* 16.7* 21.4* HGB 9.6* 9.2* 9.9* PLATELET 453* 445* 444* Chemistry: Recent Labs 04/07/20 0350 04/06/20 0130 04/05/20 0110 NA 134* 137 134* K 3.6 3.6 3.4* CL 101 102 101 CO2 24 26 26 BUN 16 16 11 CREATININE 0.34* 0.42* 0.36* GLUCOSE 166 180 175 Recent Labs 04/07/20 0350 04/06/20 0130 04/05/20 0110 CALCIUM 7.7* 7.7* 8.0* MAGNESIUM 0.82 0.88 0.82 PHOS 3.3 3.3 2.9 LFT's: Recent Labs 03/27/20 0320 03/26/20 0145 03/25/20 0155 BILITOT 0.4 0.6 0.6 ALBUMIN 3.2 3.3 3.1* ALKPHOS 58 60 58 ALT 160* 240* 170* AST 77* 166* 149* Microbiology: No results for input(s): URINECULTURE in the last 720 hours. Recent Labs 03/23/20 1346 GRAMSTAIN Cytocentrifuge Gram Stain performed Neutrophils seen No microorganisms seen. BFCX No growth No results for input(s): BLOODCX in the last 720 hours. Diagnostic Studies: CT Angiogram Abdomen and Pelvis 03/26/2020 IMPRESSION ?? 1. Normal appearance of celiac axis and its branches. No evidence of aneurysm or pseudoaneurysm. 2. Post Whipple procedure with expected postoperative changes. 3. Bilateral pleural effusions with LEFT basilar focal atelectasis ?? Assessment: Linda Abel is a 74 y.o. 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 The Medicine service has been consulted for management of hypertension. Given her history of essential hypertension and acute pain, she likely had an acute elevation of her BP on a baseline of hypertension. Also given her aspiration PNA and surgery she likely has elevated blood pressure from infection and possibly from some discomfort. Would start amloidipine 5mg qd as to not over correcther blood pressure when her infection resolves. Would also treat her symptoms with tylenol which may help her blood pressure. Recommendations - Start Amlodipine 5mg qd - consider scheduling Tylenol tid or qid for pain / low-grade temp's - Home BP monitoring - have her take a random times of the day on different days to get a sense of her baseline BP. - Close follow-up with PCP - advise her PCP get another BMP on follow-up appointment. X Consult service will continue to follow patient. Recommendations are above, please page if further consultation required. John Bashir III, MD Internal Medicine, PGY3 [facility] Pager # [phone] Attending Staff New Consult Documentation We have been asked to see this patient in consultation by Dr. Carolina from Surgery-Oncology. Please see Dr. Bashir's note for details of the patient history of presentation and data. I have examined the patient myself and reviewed all labs and studies personally. I have discussed, reviewed and agree with the documented history with ROS, social and family history, medication list, physical findings, labs/studies, Assessment and Plan of care with the following additions: Patient reports hx of HTN previously treated with HCTZ, which was previously stopped as an outpatient. On review of chart, she was normotensive here back in 2013 but has been hypertensive since becoming re-engaged in our system as of October 2019. She attributes this partly due to the HCTZ being stopped and partly due to the stress/anxiety behind the reasons for which she has been seen here since October, namely two different cancers - breast cancer and now pancreatic IPMN. We considered possibility of secondary HTN perhaps related to malignancy - perhaps a neuroendocrine component - if that were the case she has now has had both the breast cancer and the pancreatic IPMN resected, and she also had a relatively recent PET-CT with no evidence of other malignancy. Other causes of HTN unlikely as she has normal renal function, normal appearing kidneys/renal vasculature on recent CTA, normal appearing adrenals on recent CT scan, and has no clinical evidence of either hypercortisolism or hyperaldosteronism. So HTN likely a combination of essential HTN off of her HCTZ and exacerbation related tostress (both physiological and psychological). Thus not recommending any further w/u for secondary HTN at this time, and recommend starting amlodipine as above. Resuming [facility] may be [facility] (patient wants to do so), but would hold off on the thiazide for right now due to mild hyponatremia. DIEGO BLAS MD 04/08/2020 * Alesha Casillas RN - 04/07/2020 10:12 AM EST Based on discussions with the multi-disciplinary healthcare team, the patient would benefit from chcf level of care at discharge. ?? I have met with the patient to discuss discharge planning needs. I have provided the [facility], Office of Care Management letter from the [employer] pertaining to rehab referrals. I have also provided a letter describing our affiliations within the [facility] and educatedthem about their right to choose where referrals are. ?? Provided patient with [facility] Star Quality Rating for SNF, LTAC and/or IRF hand out. ?? I reviewed the different levels of rehab including SNF, swing, acute and LTAC with the patient. ?? The patient has been provided a list of facilities within their preferred geographic area. ?? I have requested that the patient provide at least three choices for referral. ?? The patient have requested referrals to: 1. [facility] [address] [place] [address] ?? PHONE: [phone] FAX: [phone] 2. [facility] ([facility]) ([facility]) [address] [place] [address] ?? PHONE: [phone] FAX: [phone] 3. [facility] ([facility]) ([facility]) [address] [place] [address] ?? PHONE: [phone] FAX: [phone] ?? Expected date of discharge: 04/10 Note routed to [employer] who will communicate referrals to facilities and provide any required information. * Edwardo Mccormack MD - 04/07/2020 7:42 AM EST Surgical Oncology Inpatient Progress Note Patient Name: Linda MERAZ; Age: 6 1945; 74 y.o. Room/Bed: [address] [place] [address] Today's Date: 04/07/20 ID: Linda Abel is a 74 y.o. female with PMH main duct IPMN, now s/p robotic whipple. Procedures this Hospitalization: 03/23: Robotic whipple 04/02: EGD OR Findings: No metastatic disease. The liver was healthy appearing. The resection was complicated by ergonomic issues given her small size and limited space within the abdomen- this made the resection and reconstruction take longer given instrument limited range of motion. Otherwise the case went well- minimalblood loss. The pancreatic duct measured 1.5 cm and the bile duct though was quite small - only 5-6mm. After completion of the resection and as we were preparing for the reconstruction it appeared that the common hepatic or proper hepatic artery had what looked like purple discoloration and some aneurysmal dilation extending up into a branch that looked like the right hepatic artery. Her completely replaced right hepatic artery though was nicely palpable. It was unclear whether this was just some tracking of blood along the arterial adventitia or some type of dissection? We spent quite a lotof time watching this and looking at the viability/color of the liver and it appeared completely unc hanged throughout the remainder of the case. Reconstruction was an intracoporal retromesenteric anddecide (Blumgart type) duct to mucosa pancreaticojejunostomy. The pancreatic duct was so massively dilated that we could not stent it. The bile duct anastomosis however was somewhat difficult and that it was so tiny and required an interrupted Blumgart-Debra type hepaticojejunostomy with 5-0 PDS. In testinal continuity was restored by bringing the proximal jejunal limb up as a retrocolic/transmesenteric side to side (Billroth II type) handsewn gastrojejunostomy anastomosis. Final inspection at the end of the case revealed excellent hemostasis and the liver really looked completely normal and there was no areas of demarcation. ?? 24 Hour Events/Subjective: - Continues to feel weak this morning - Voice continues to improve - Tolerating sips and chips w/ no n/v Hospital Course: POD 0 12: To OR for robotic Whipple, ROEL post-op. [...] in LFTs in light of concern over LAAR anatomy in OR; negative for aneurysm. Small Left effusion. Awaiting ROBF. POD 4 03/27: clamp trial with 200cc out, NGT remained in overnight, +flatus. POD 5 03/28: NGT and KHRIS drain removed. Tolerated clears. HTN overnight with mild hyperglycemia. POD 6 03/29: BP continues to be elevated, patient reassured that it is safe to take BP on RUE intermittently POD 7 14: Stopped prn BP meds (hydralazine/labetalol), continued HCTZ with goal BP 150/90s per medicine recs POD 8 1215: nausea with a few episodes of emesis, [...] 04/06: NGT removed, tolerating sips and chips Objective Last value Range last 24hrs Temperature Temp: 37.4 ??C (99.3 ??F) Temp: [36.9 ??C (98.4 ??F)-37.9 ??C (100.2 ??F)] Heart Rate Heart Rate: 100 Heart Rate: [100] Blood Pressure BP: (!) 163/101 BP: (140-172)/(87-102) Respiratory Rate Resp: 22 Resp: [18-28] SpO2 SpO2: 91 % SpO2: [91 %-94 %] 2L NC Physical Exam Gen: NAD HEENT: Normocephalic, atraumatic CV: RRR Pulm: breathing comfortably on RA, no respiratory distress Abd: non-distended, soft, appropriately TP, robotic sites dressed with dermabond, mild ecchymoses, c/d/i. Ext: SCDs in place Skin: warm, dry 24 Hour I/O's: I/O last 3 completed shifts: In: 3512 [P.O.:730; I.V.:488; Other:60; IV Piggyback:100] Out: 3450 [Urine:3150; Other:300] Admit Weight: 54.89 kg Current Weight: Weight: 53.3 kg (117 lb 9.6 oz) Labs: Recent Labs 04/07/20 0350 04/06/20 0130 04/05/20 0110 WBC 13.5* 16.7* 21.4* HGB 9.6* 9.2* 9.9* HCT 28.1* 27.3* 30.0* PLATELET 453* 445* 444* Recent Labs 04/07/20 0350 04/06/20 0130 04/05/20 0110 NA 134* 137 134* K 3.6 3.6 3.4* CL 101 102 101 CO2 24 26 26 BUN 16 16 11 CREATININE 0.34* 0.42* 0.36* GLUCOSE 166 180 175 CALCIUM 7.7* 7.7* 8.0* MAGNESIUM 0.82 0.88 0.82 PHOS 3.3 3.3 2.9 LFT's No results found for: ALKPHOS, AST, ALBUMIN, BILIDIR, BILITOT, ALT, PROT KHRIS Amylase: 128: 26 129: 22 12/10: 15 12/11: 327 1212: 12 Micro: Bile duct cx (03/23): NGTD New Imaging: None Assessment / Plan: Linda Abel is a 74 y.o. female with PMH breast ca, HTN, pancreatic IPMN, POD 11 s/p robotic Whipple. Her hospital course is now complicated by ulceration at the GJ anastomosis. Initial work up for nausea and vomiting included a CT scan which showed a dilated stomach and contrast refluxing into the biliopancreatic limb. There was concern for ulceration or obstruction. An EGD was obtained which showed ulceration at the GJ anastomosis. NGT was removed yesterday with and diet was advanced to sips and chips, which patient has toleratedso far with no nausea/vomiting. Anticipate possible discharge to Rehab, Swing bed, or SNF with TPN as marginal ulcer will take time to heal. If she is unable to tolerate her PO diet, she may require surgical intervention. WBC (16.7 -> 13.5) continues to trend down on ceftriaxone and flagyl for presumed aspiration pneumonia. NEURO: Ok for tylenol, toradol, lidoderm patches. Oxy PRN CV: SBPs have been 160-170s. Re-engage medicine today for help with BP management PULM: Encourage OOB/IS, home albuterol (duoneb) PRN Aspiration PNA: Flagyl/ceftriaxone GI/FEN: #delayed gastric emptying s/p whipple. -Ulcerations at GJ: PPI BID -Sips and chips (with tea) -TPN given poor PO intake with #moderate protein and caloric malnutrition. RENAL: UOP adequate ENDO: Holding home Arimidex, ISS HEME: DVT ppx Lovenox ID: periop antibiotics, BD cultures NG, Ceftriaxone/Flagyl MSK: OOB today PPX: PPI, IS, SCDs LINES: PIV DISPO: Floor status, Attempt Cardiopulmonary Resuscitation - Inpatient Signed: Edwardo Mccormack MD Surgical Oncology Service Team Pager #[phone] 04/07/20 7:42 AM * Dvaian Carolina MD - 04/06/2020 1:18 PM EST Surgical Oncology Inpatient Progress Note Patient Name: Linda MERAZ; Age: 6 1945; 74 y.o. Room/Bed: [address] [place] [address] Today's Date: 04/06/20 ID: Linda Abel is a 74 y.o. female with PMH main duct IPMN, now s/p robotic whipple. Procedures this Hospitalization: 03/23: Robotic whipple 04/02: EGD OR Findings: No metastatic disease. The liver was healthy appearing. The resection was complicated by ergonomic issues given her small size and limited space within the abdomen- this made the resection and reconstruction take longer given instrument limited range of motion. Otherwise the case went well- minimalblood loss. The pancreatic duct measured 1.5 cm and the bile duct though was quite small - only 5-6mm. After completion of the resection and as we were preparing for the reconstruction it appeared that the common hepatic or proper hepatic artery had what looked like purple discoloration and some aneurysmal dilation extending up into a branch that looked like the right hepatic artery. Her completely replaced right hepatic artery though was nicely palpable. It was unclear whether this was just some tracking of blood along the arterial adventitia or some type of dissection? We spent quite a lotof time watching this and looking at the viability/color of the liver and it appeared completely unc hanged throughout the remainder of the case. Reconstruction was an intracoporal retromesenteric anddecide (Blumgart type) duct to mucosa pancreaticojejunostomy. The pancreatic duct was so massively dilated that we could not stent it. The bile duct anastomosis however was somewhat difficult and that it was so tiny and required an interrupted Blumgart-Debra type hepaticojejunostomy with 5-0 PDS. In testinal continuity was restored by bringing the proximal jejunal limb up as a retrocolic/transmesenteric side to side (Billroth II type) handsewn gastrojejunostomy anastomosis. Final inspection at the end of the case revealed excellent hemostasis and the liver really looked completely normal and there was no areas of demarcation. ?? 24 Hour Events/Subjective: - Continues to feel weak this morning - Voice continues to improve - NGT removed after AM rounds and advanced diet to tea w/ sips and chips Hospital Course: POD 0 12: To OR for robotic Whipple, ROEL post-op. [...] POD 12 04/04: ROEL POD 04/05: ROEL Objective Last value Range last 24hrs Temperature Temp: 37.4 ??C (99.3 ??F) Temp: [36.9 ??C (98.4 ??F)-37.4 ??C (99.3 ??F)] Heart Rate Heart Rate: (!) 101 Heart Rate: [90-101] Blood Pressure BP: (!) 168/93 BP: (133-179)/(72-103) Respiratory Rate Resp: 18 Resp: [18-20] SpO2 SpO2: 92 % SpO2: [89 %-97 %] 2L NC Physical Exam Gen: NAD HEENT: Normocephalic, atraumatic CV: RRR Pulm: breathing comfortably on 2L NC, no respiratory distress Abd: non-distended, soft, appropriately TP, robotic sites dressed with dermabond, mild ecchymoses, c/d/i. Ext: SCDs in place Skin: warm, dry 24 Hour I/O's: I/O last 3 completed shifts: In: 3265 [P.O.:460; I.V.:224; Other:180; IV Piggyback:360] Out: 4025 [Urine:3375; Other:650] Admit Weight: 54.89 kg Current Weight: Weight: 53.3 kg (117 lb 9.6 oz) Labs: Recent Labs 04/06/2012904/05/20 0110 04/04/20 0326 WBC 16.7* 21.4* 20.5* HGB 9.2* 9.9* 9.1* HCT 27.3* 30.0* 27.1* PLATELET 445* 444* 367* Recent Labs 04/06/2012904/05/20 0110 04/04/20 0326 NA 137 134* 134* K 3.6 3.4* 3.3* CL 102 101 101 CO2 26 26 28 BUN 16 11 13 CREATININE 0.42* 0.36* 0.34* GLUCOSE 180 175 181 CALCIUM 7.7* 8.0* 7.8* MAGNESIUM 0.88 0.82 0.84 PHOS 3.3 2.9 2.4* LFT's No results found for: ALKPHOS, AST, ALBUMIN, BILIDIR, BILITOT, ALT, PROT KHRIS Amylase: 03/24: 26 12: 22 1210: 15 1211: 327 1212: 12 Micro: Bile duct cx (03/23): NGTD New Imaging: CXR 04/05 IMPRESSION 1. Significant, increasing left base infiltrate with adjacent effusion. 2. Left interstitial infiltrate extending to the peripheral consolidation in the left chest accentuated by overlapping structures. 3. Small right pleural effusion. 4. Bilateral subcutaneous emphysema 5. Stable PICC and enteric tube Assessment / Plan: Linda Abel is a 74 y.o. female with PMH breast ca, HTN, pancreatic IPMN, POD 11 s/p robotic Whipple. Her hospital course is now complicated by ulceration at the GJ anastomosis. Initial work up for nausea and vomiting included a CT scan which showed a dilated stomach and contrast refluxing into the biliopancreatic limb. There was concern for ulceration or obstruction. An EGD was obtained which showed ulceration at the GJ anastomosis. NGT was removed with and diet was advanced to sips and chips. If she is able to tolerate this, the most likely outcome would be dischargd home with TPN as the marginal ulcer will continue to take time to heal. If she does not tolerate removal will likely require surgical intervention. Her white count is currently trending down on ceftriaxone and Flagyl for presumed aspiration pneumonia. NEURO: Ok for tylenol, toradol, lidoderm patches. Oxy PRN CV: Hemodynamically normal. PULM: Encourage OOB/IS, home albuterol (duoneb) PRN Aspiration PNA: Flagyl/ceftriaxone GI/FEN: #delayed gastric emptying s/p whipple. -Ulcerations at GJ: PPI BID -Sips and chips (with tea) -TPN given poor PO intake with #moderate protein and caloric malnutrition. RENAL: UOP adequate ENDO: Holding home Arimidex, ISS HEME: DVT ppx Lovenox ID: periop antibiotics, BD cultures NG, Ceftriaxone/Flagyl MSK: OOB today PPX: PPI, IS, SCDs LINES: PIV DISPO: Floor status, Attempt Cardiopulmonary Resuscitation - Inpatient Signed: Edwardo Mccormack MD Surgical Oncology Service Team Pager #[phone] 04/06/20 1:18 PM Surgery attending addendum I agree with Dr. Mccormack's note above. She seemed to do quite well today without the NG tube in place. She was able to take a shower and said I feel better but I cannot go home with this TPN [place] hospital and I would not exactly call the fix-hd-ungicctc. I called and spoke to her son Roberto Carlos who is down in [place] and I agree that at this point the best option for Maricruz given that she will need to be on TPN will be for her to go to a swing bed type facility either at [facility] or at [facility]. We had previously hoped that she would be able to go homeand no clear was working on VNA with [facility] for the TPN but basically given the remote location where she lives up in [place], [place] and the lack of support she essentially will not beable to go home with TPN and I think we need to start really considering the swing bed options as mentioned above at [facility] or at [facility]. This assumes all goes well with her NG tube out. We alsomay need to reengage medicine to help with her hypertension as this is been quite a refractory issue during this hospitalization and we need their help. Jennifer Carolina MD 04/06/2020 5:29 PM This note was created using [employer] voice recognition software. * Josue Lora RD - 04/06/2020 11:16 AM EST Nutrition Progress Note Patient now s/p robotic whipple now with ileus. Linda Abel is a 74 y.o. female Reason for intervention: TPN Diet:sips Comments:Concentrated TPN to provide full nutrition of 1390 calories and 110 g protein (2 g/kg) in 1320 ml. Insulin increased from 6 to 8 units. Added 20 mEq of potassium. Since diet advanced the magnesium deleted from the TPN(national shortage of magnesium for TPN). No MVI due to national shortage. I was able to discuss plan with provider [id number]. Nutrition Support: TPN Medication Recent History (Show up to 3 orders; newest on the left. Changes between the two most recent orders are indicated.) Start date and time 04/06/2020 1800 04/03/2020 1800 03/27/2020 1800 TPN Adult [[id number]] TPN Adult [[id number]] TPN Adult [[id number]] Order Status Active Active Discontinued Last Admin New Bag at 04/05/2020 1820 by Mervin Grimes RN New Bag at 03/29/2020 1949 by Ness Cummings RN Medications insulin regular human 8 Units 6 Units -- Additives trace elements Zn-Cu-Mn-Se 1 mL 1 mL 1 mL ascorbic acid (vitamin C) 100 mg -- -- Vit O1-I4-J9-B5-B6 (B Complex) 1 mL 1 mL 1 mL zinc sulfate 10 mg 10 mg 10 mg Pedi multivitamin -- 1 mL 1 mL Electrolytes sodium phosphate 36 mmol 36 mmol 36 mmol potassium chloride 100 mEq 80 mEq 80 mEq sodium chloride 150 mEq 230 mEq 90 mEq calcium gluconate -- 8 mEq 8 mEq magnesium sulfate -- 16 mEq 16 mEq Dextrose dextrose 70% 118 g 118 g 118 g Amino Acids amino acid 15% no.5 (ClinisoL) 110 g 110 g 110 g QS Base sterile water 123.32 mL 571.4 mL 606.46 mL Lipid fat emulsion 30 % 55 g 55 g 55 g Energy Contribution Proteins 440 kcal 440 kcal 440 kcal Dextrose 401.27 kcal 401.27 kcal 401.27 kcal Lipids 549 kcal 549 kcal 549 kcal Total 1,390.27 kcal 1,390.27 kcal 1,390.27 kcal Electrolyte Ion Calculated Amount Sodium 198 mEq 278 mEq 138 mEq Potassium 100 mEq 80 mEq 80 mEq Calcium -- 8 mEq 8 mEq Magnesium -- 16 mEq 16 mEq Aluminum -- -- -- Phosphate 38.75 mmol 38.75 mmol 38.75 mmol Chloride 250 mEq 310 mEq 170 mEq Acetate 93.13 mEq 93.13 mEq 93.13 mEq Other Total Amino Acid 110 g 110 g 110 g Total Amino Acid/kg 2.06 g/kg 2.06 g/kg 2 g/kg Glucose Infusion Rate 1.54 mg/kg/min 1.54 mg/kg/min 1.49 mg/kg/min Osmolarity (Estimated) 1,759.76 1,383.82 1,228.27 Volume 1,320 mL 1,800 mL 1,800 mL Rate 55 mL/hr 75 mL/hr 75 mL/hr Dosing Weight 53.3 kg 53.3 kg 54.9 kg Infusion Site [facility] Results Component Value Date NA 137 04/06/2020 K 3.6 04/06/2020 CL 102 04/06/2020 CO2 26 04/06/2020 BUN 16 04/06/2020 CREATININE 0.42 (L) 04/06/2020 GFRAA 96 01/09/2020 ESTGFR 102 04/06/2020 MAGNESIUM 0.88 04/06/2020 CALCIUM 7.7 (L) 04/06/2020 PHOS 3.3 04/06/2020 AST 77 (H) 03/27/2020 ALT 160 (H) 03/27/2020 ALKPHOS 58 03/27/2020 BILITOT 0.4 03/27/2020 HA1C 5.8 (H) 03/30/2020 Lab Results Component Value Date POCGLU 170 04/06/2020 POCGLU 198 04/06/2020 POCGLU 186 04/05/2020 POCGLU 150 04/05/2020 POCGLU 171 04/05/2020 POCGLU 202 (H) 04/05/2020 Skin Status: Shift Pressure Injury Prevention Occiput: No Injury Thoracic Spine: No Injury Sacral: No Injury Ischial - left: No Injury Ischial - right: No Injury Heel - left: No Injury Heel - right: No Injury Elbow - left: No Injury Elbow - right: No Injury Device Sites: O2 sat monitor, SCD's/venodynes, IV sites Other Sites: ostomy bag over old KHRIS site Relevant medications: Last Bowel Movement: 03/31/20 Intake/Output Summary (Last 24 hours) at 04/06/2020 1116 Last data filed at 04/06/2020 1102 Gross per 24 hour Intake 2075 ml Output 2050 ml Net 25 ml Admit Weight: 54.89 kg Estimated body mass index is 21.5 kg/m?? as calculated from the following: Height as of this encounter: 157.5 cm (5' 2.01). Weight as of this encounter: 53.3 kg (117 lb 9.6 oz). [place]old Body Weight: 50 kg Usual Body Weight: 55 kg Wt Readings from Last 10 Encounters: 03/27/20 53.3 kg (117 lb 9.6 oz) 01/28/20 55.8 kg (123 lb) 01/09/20 54.7 kg (120 lb 9.6 oz) 12/20/19 52.2 kg (115 lb) 12/18/19 54.7 kg (120 lb 9.6 oz) 12/11/19 52.2 kg (115 lb) 12/09/19 55.3 kg (122 lb) 11/25/19 55 kg (121 lb 3.2 oz) 11/15/19 54.4 kg (120 lb) Assessment: Estimated needs: Calories: 1375 (25 kcal/kg) Protein: 110 grams (2g/kg) Nutrition Focused Physical Exam (NFPE): Not performed Nutrition intake and intake history/Interview: NPO/clearsx 6 days. No recent weight loss. Protein-calorie Malnutrition: Not identified (Chencho molina al, CHRIS J Parenteral Enteral Nutr. 2011; 36(3): 273-83) Nutrition to continue to follow up while inpatient. JOSUE LORA RD Pager #[phone] * Alesha Casillas RN - 04/06/2020 10:24 AM EST OFFICE OF CARE MANAGEMENT Social Work Professor Follow-up Note Alesha Casillas RN reviewed record and discussed patient with Care Team. Patient plan of care discussed in multidisciplinary rounds and assessment for continuing care and discharge needs. Diagnosis: IPMN (intraductal papillary mucinous neoplasm) LOS Hospital: 14 days INSURANCE: Payor: MEDICARE / Plan: MEDICARE PART A & B / Product Type: *No Product type* / SECONDARY INSURANCE: [facility] DECISION MAKER: Attempt Cardiopulmonary Resuscitation - Inpatient <no information> Patient continues to require hospitalization. Per team, patient requires inpatient status r/t dc N/G tube today. On sips and chips. Discharge date planned for 04/08 if medically ready. Current Referral in place: [facility] for RN. Added PT, OT. [facility] routed for TPN supportif needed. Transportation: Son will drive patient home via private vehicle when medically ready. Support: Son Social Work Professor to follow with team and family to assist with discharge needs when patient ready for discharge. Alesha Casillas RN, BSN Case Management pgr [phone] * Meera Mednia OT - 04/06/2020 10:02 AM EST Occupational Therapy Treatment Note Treatment Number OT: 5 Patient Dx: Linda Abel is a 74 y.o. female admitted on 03/23/2020 with PMH main duct IPMN,??now Post-Op??s/p robotic whipple on 03/23. ?? Precautions/Special Considerations: Fall risk, PICC, NG tube clamped Interval History: - NAEON NG tube removed this AM ?? S: Why would I wear pants, I haven't in two weeks. O: Patient seen for skilled OT treatment, and demonstrated the following: ?? Self-care: Pt can don socks indep Pt draped sahara over her back d/t IV lines but demonstrates sufficient ROM to perform UB dressing indep Pt performed full showering activity with set up, shower chair, increased time and min A. Pt required assistance to wash her back but pt was able to wash her LB Pt donned gown indep ?? Functional Mobility: ?? Pt sitting chair when therapy began. ?? Sit to stand: indep ?? Ambulation: 500+ft with fWW and SBA with no LOB. Pt went at a slow but steady pace and took short standing rest breaks as needed. ?? Cognition: ?? Behavior / Mood: alert and cooperative ?? Alert and oriented to: person, place, time and situation ?? Follows commands: multi step ?? Attention: WFL ?? Safety awareness: WFL ?? Vision:WFL ?? Endurance:Good ?? Vitals: VSS ?? Strength/ROM: WFL Pain: No pain reported Education: Pt/family/caregiver education ongoing regarding: Role of occupational therapy/rehabilitation, Assistive device/technique, ADL, Safety, Functional Mobility and Activity pacing/Energy conservation. Staff Communication: Patient status, treatment, and mobility recommendations discussed with nursing/other staff. ASSESSMENT: Pt was seen this morning for skilled OT. Pt presented in much better spirits and had NGtube removed this morning. Pt continues to demonstrate good independence with her self care and functional mobility. Pt demonstrates a good understanding of energy conservation and pacing herself. Ptalso demonstrates improved activity tolerance and is able to perform multiple self care activities and ambulate greater distances with no seated rest break. PEPITO coordinated with OT- patient meeting all OT goals at this time and appropriate to be placed on monitor status. Anticipated Discharge Disposition: home with assist, home with home health Equipment Recommendations: None Daily schedule / Staff Recommendations: ?? Utilize upright chair position using bed features or transfer to recliner chair as appropriate with assistance as needed, ambulate as tolerated ?? Encourage participation in ADL's by providing set up A on tray table and physical assist only asneeded ?? Occupational Therapy Goals: To be achieved by 04/01/2020. Patient will stand at sink level with supervision x10 min for ADLs. MET Patient will dress lower body indep with adaptive equipment prn.MET Patient will ambulate to the bathroom with supervision, assistive device as needed.MET Patient will demonstrate energy conservation principals with all ADLs indep. MET Patient will complete all aspects of toileting with supervision, assistive device as needed. MET ?? Plan: OT: Therapy Frequency: Monitor Total Evaluation Minutes, Occupational Therapy: 45 Pager: [phone] PEPITO Kirk Plan updated by OT to monitor. The entirety of this note still belongs to the original author, PEPITO Amador. Meera Medina OT Occupational Therapy Rehabilitation Department * Katie Santamaria, MEAL COOKER - 04/06/2020 9:35 AM EST Images from the original note were not included. Follow Up Diabetes Consult Patient Interview NG tube removed this AM, passing flatus, diet advanced to sips and chips asking for tea with cream may cycle TPN tomorrow Febrile over the weekend being treated for pneumonia Objective Temp: [36.9 ??C (98.4 ??F)-37.4 ??C (99.3 ??F)] Heart Rate: [83-101] Resp: [18-20] BP: (133-179)/(72-103) SpO2: [89 %-97 %] Heart Rate from SpO2: [81 bpm-100 bpm] Current Regimen from previous note04/03 Lispro for correction q 6 hours using correction scale Diet NPO TPN - 1:20 I:C ratio ?? Recent Glucose Levels Recent Labs 04/06/20 0750 04/06/20 0443 04/05/20 2323 04/05/20 2003 04/05/20 1611 04/05/20 1136 04/05/20 0806 04/05/20 0403 04/05/20 0109 04/04/20 2211 04/04/20 2022 04/04/20 1636 POCGLU 170 198 186 150 171 202* 168 167 172 197 191 190 ASSESSMENT ?? Patient is a??74 y.o.??years??old female??with??NO??PMH??of??DM who was admitted on??03/23/2020??for??IPMN s/p robotic whipple on 03/23. BG trending a bit elevated will increase insulin in TPN discussed with primary team message sent tonutrition re TPN PLAN Lispro for correction q 4 hours using correction scale Diet sips and chips TPN - 1:15 I:C ratio ?? Katie Santamaria APRN [facility] Endocrinology Diabetes Management Pager [phone] * Davian Carolina MD - 04/06/2020 7:09 AM EST Surgery Attending Note S: Can I have some tea with honey? I'm so weak. Passing flatus. O: Afebrile, HR 80-90's, hyper tensive last night 179/103 responded to hydralazine, on 2L NC satinglow 90's. 3.2 in and 2.1 out. UOP good 1.65 L per 24 h. NG put out 200 and then 300 She was awake but looked miserable... holding the NG tube so it wouldn't move. AAOx3. Coarse breath sounds bilaterally and expiratory wheezes RRR Soft, ND, NT, normal sounding bowel sounds, incisions look good No edema A/P: #nosocomial pneumonia - Cont Ceftriaxone and flagyl. - Will start nebs (she uses an inhaler at home) #Margina ulcer - Only 500 cc over last 24h. Bilious. I removed the NG this am - Cont BID Protonix IV for now and will transition to PO BID at discharge. #Severe protein and caloric malnutrtion - Cont TPN and will start to cycle the TPN probably for tomorrow #Dispo - Need to have OT/PT re-eval for home vs rehab given worsening weakness/fatigue and overall decondition. Jennifer Carolina MD 04/06/2020 7:23 AM * Swathi Dyer RN - 04/06/2020 1:42 AM EST OUTCOME EVALUATION NOTE: ?? OUTCOME SUMMARY: Patient is POD#14??Robotic Whipple Patient is A&O, VSS.??Reports ABD pain, managed with scheduled medications and IV dilaudid 0.2 mg X1.??Denies??passing flatus??overnight and no BM.??Pt remains on sips/chips w/NGT in place to LCWS, flushed as ordered--dark brown/green output, tolerating well, denies nausea, TPN @ 75mL/hr. Voiding adequate amounts of urine, dark yellow. Labs drawn, WBC decreased to 16.7 from 21.4. Ambulating with nursing staff. ?? PLAN MOVING FORWARD: -Monitor/manage pain -Encourage OOB, ambulation & IS -NGT-to LCWS, possible removal today vs sx intervention -TPN continued -D/C home on TPN ?? INDIVIDUALIZED FALL PREVENTION INTERVENTIONS: High Fall Risk ?? Patient-specific fall risk factors per assessment: [current deficits]:?74 y.o. with recent surgery, generalized weakness, use of ambulatory aid,??PICC??w/IVFs infusing,??and unfamiliar surroundings. ?? Assistance [level of assistance required for transfers and ambulation]:?SBA with FWW ?? Supervision [direct monitoring required during toileting and ADLs]:?Eyes on, within arms reach ?? Surveillance [continuous indirect monitoring]:?Nurse knowledge exchange, purposeful rounding, environmental modifications (waste basket is out of the path and the IV tubing and cords are free fromthe floor), fall reduction program in place, lighting adjusted for task, bed in low position, wheels locked, side rails up (x2), nonskid socks worn OOB, no restraints, call light is within reach at all times, assistive device, bed/chair alarm, [place] ID band on.? Patient-specific fall prevention interventions for sensory deficits provided, if applicable:?Yes, patient wears glasses ? CPG GOAL OUTCOME EVALUATION:??Will continue to monitor * Jayro Murillo MD - 04/05/2020 3:52 PM EST Surgical Oncology Inpatient Progress Note Patient Name: Linda MERAZ; Age: 6 1945; 74 y.o. Room/Bed: [address] [place], [place] [address] Today's Date: 04/05/20 ID: Linda Abel is a 74 y.o. female with PMH main duct IPMN, now s/p robotic whipple. Procedures this Hospitalization: 03/23: Robotic whipple 04/02: EGD OR Findings: No metastatic disease. The liver was healthy appearing. The resection was complicated by ergonomic issues given her small size and limited space within the abdomen- this made the resection and reconstruction take longer given instrument limited range of motion. Otherwise the case went well- minimalblood loss. The pancreatic duct measured 1.5 cm and the bile duct though was quite small - only 5-6mm. After completion of the resection and as we were preparing for the reconstruction it appeared that the common hepatic or proper hepatic artery had what looked like purple discoloration and some aneurysmal dilation extending up into a branch that looked like the right hepatic artery. Her completely replaced right hepatic artery though was nicely palpable. It was unclear whether this was just some tracking of blood along the arterial adventitia or some type of dissection? We spent quite a lotof time watching this and looking at the viability/color of the liver and it appeared completely unc hanged throughout the remainder of the case. Reconstruction was an intracoporal retromesenteric anddecide (Blumgart type) duct to mucosa pancreaticojejunostomy. The pancreatic duct was so massively dilated that we could not stent it. The bile duct anastomosis however was somewhat difficult and that it was so tiny and required an interrupted Blumgart-Debra type hepaticojejunostomy with 5-0 PDS. In testinal continuity was restored by bringing the proximal jejunal limb up as a retrocolic/transmesenteric side to side (Billroth II type) handsewn gastrojejunostomy anastomosis. Final inspection at the end of the case revealed excellent hemostasis and the liver really looked completely normal and there was no areas of demarcation. ?? 24 Hour Events/Subjective: -White blood cell count is slowly rising. Temperature is elevated to 38.2 yesterday. -Voice continues to improve -She feels somewhat better but is still weak Hospital Course: POD 0 12: To OR for robotic ROEL Upton post-op. Note intra-operative concern for common hepaticartery [...] take BP on RUE intermittently POD 7 14: Stopped prn BP meds (hydralazine/labetalol), continued HCTZ [...] 04/03: Abx started for PNA tx POD 04/04: ROEL Objective Last value Range last 24hrs Temperature Temp: 36.9 ??C (98.4 ??F) Temp: [36.8 ??C (98.2 ??F)-38.2 ??C (100.8 ??F)] Heart Rate Heart Rate: 83 Heart Rate: [83-98] Blood Pressure BP: 161/90 BP: (158-167)/(90-100) Respiratory Rate Resp: 20 Resp: [17-26] SpO2 SpO2: 92 % SpO2: [88 %-94 %] 2L NC Physical Exam Gen: NAD HEENT: Normocephalic, atraumatic, NGT to nares CV: RRR Pulm: breathing comfortably on 2L NC, no respiratory distress Abd: non-distended, soft, appropriately TP, robotic sites dressed with dermabond, mild ecchymoses, c/d/i. Ext: SCDs in place Skin: warm, dry 24 Hour I/O's: I/O last 3 completed shifts: In: 3550.4 [P.O.:111; I.V.:621.4; Other:210; IV Piggyback:360] Out: 4800 [Urine:4275; Other:525] NGT 345 Admit Weight: 54.89 kg Current Weight: Weight: 53.3 kg (117 lb 9.6 oz) Labs: Recent Labs 04/05/20 0110 04/04/20 0326 04/03/20 0250 WBC 21.4* 20.5* 18.1* HGB 9.9* 9.1* 10.2* HCT 30.0* 27.1* 30.9* PLATELET 444* 367* 380* Recent Labs 04/05/20 0110 04/04/20 0326 04/03/20 0250 04/02/20 1815 NA 134* 134* 129* 132* K 3.4* 3.3* 3.8 3.9 CL 101 101 96* 96* CO2 26 28 23 22 BUN 11 13 11 8 CREATININE 0.36* 0.34* 0.37* 0.40* GLUCOSE 175 181 162 92 CALCIUM 8.0* 7.8* 7.6* 7.7* MAGNESIUM 0.82 0.84 0.76 -- PHOS 2.9 2.4* 2.2* -- LFT's No results found for: ALKPHOS, AST, ALBUMIN, BILIDIR, BILITOT, ALT, PROT KHRIS Amylase: 03/24: 26 129: 22 1210: 15 1211: 327 1212: 12 Micro: Bile duct cx (03/23): NGTD New Imaging: CXR IMPRESSION Airspace opacities in the left mid and lower lung zone, question consolidation, pneumonia or aspiration. Subcutaneous emphysema similar to prior exams. ?? Assessment / Plan: Linda Abel is a 74 y.o. female with PMH breast ca, HTN, pancreatic IPMN, POD 11 s/p robotic Whipple. Her hospital course is now complicated by ulceration at the GJ anastomosis. Initial work up for nausea and vomiting included a CT scan which showed a dilated stomach and contrast refluxing into the biliopancreatic limb. There was concern for ulceration or obstruction. An EGD was obtained which showed ulceration at the GJ anastomosis. We are currently treating her with NG tube decompression and PPI twice daily. We will likely attempt NG tube removal tomorrow. If she is able to tolerate this, the most likely outcome would be dischargd home with TPN as themarginal ulcer will continue to take time to heal. If she does not tolerate removal will likely require surgical intervention. Her white count is been rising over the past several days. We are currently treating with ceftriaxone and Flagyl for presumed to be an aspiration pneumonia. We do not see her WBC downtrend we will plan for CT scan in the upcoming days. Chest x-ray obtained this morning redemonstrates a pneumonia, albeit slightly worse NEURO: Ok for tylenol, toradol, lidoderm patches. Oxy PRN CV: Hemodynamically normal. discontinued aspirin and HCTZ PULM: Encourage OOB/IS, home albuterol (duoneb) PRN Aspiration PNA: Flagyl/ceftriaxone GI/FEN: #delayed gastric emptying s/p whipple. -Ulcerations at GJ: NGT, PPI BID -TPN given inability to take PO with #moderate protein and caloric malnutrition. RENAL: UOP adequate UA ENDO: Holding home Arimidex, ISS HEME: DVT ppx Lovenox ID: periop antibiotics, BD cultures NG, Ceftriaxone/Flagyl MSK: OOB today PPX: PPI, IS, SCDs LINES: PIV DISPO: Floor status, Attempt Cardiopulmonary Resuscitation - Inpatient Signed: Jayro Murillo MD Surgical Oncology Service Team Pager #[phone] 04/05/20 3:52 PM * Davian Carolina MD - 04/04/2020 10:14 AM EST Surgical Oncology Inpatient Progress Note Patient Name: Linda MERAZ; Age: 6 1945; 74 y.o. Room/Bed: 207/[facility] Today's Date: 04/04/20 ID: Linda Abel is a 74 y.o. female with PMH main duct IPMN, now 2 Days Post-Op s/p robotic whipple. Procedures this Hospitalization: 03/23: Robotic whipple 04/02: EGD OR Findings: No metastatic disease. The liver was healthy appearing. The resection was complicated by ergonomic issues given her small size and limited space within the abdomen- this made the resection and reconstruction take longer given instrument limited range of motion. Otherwise the case went well- minimalblood loss. The pancreatic duct measured 1.5 cm and the bile duct though was quite small - only 5-6mm. After completion of the resection and as we were preparing for the reconstruction it appeared that the common hepatic or proper hepatic artery had what looked like purple discoloration and some aneurysmal dilation extending up into a branch that looked like the right hepatic artery. Her completely replaced right hepatic artery though was nicely palpable. It was unclear whether this was just some tracking of blood along the arterial adventitia or some type of dissection? We spent quite a lotof time watching this and looking at the viability/color of the liver and it appeared completely unc hanged throughout the remainder of the case. Reconstruction was an intracoporal retromesenteric anddecide (Blumgart type) duct to mucosa pancreaticojejunostomy. The pancreatic duct was so massively dilated that we could not stent it. The bile duct anastomosis however was somewhat difficult and that it was so tiny and required an interrupted Blumgart-Debra type hepaticojejunostomy with 5-0 PDS. In testinal continuity was restored by bringing the proximal jejunal limb up as a retrocolic/transmesenteric side to side (Billroth II type) handsewn gastrojejunostomy anastomosis. Final inspection at the end of the case revealed excellent hemostasis and the liver really looked completely normal and there was no areas of demarcation. ?? 24 Hour Events/Subjective: -Ceftriaxone/Flagyl started for PNA treatment -UA negative -Voice improved this morning -WBC continues to rise Hospital Course: POD 0 03/23: To OR [...] overnight, +flatus. POD 5 03/28: NGT and KHRSI drain removed. Tolerated clears. HTN overnight with mild hyperglycemia. POD 6 03/29: BP continues to be elevated, patient reassured that it is safe to take BP on RUE intermittently POD 7 03/30: Stopped prn BP meds (hydralazine/labetalol), continued HCTZ with goal BP 150/90s per medicine recs POD 8 1215: nausea with a few episodes of emesis, BP improved on HCTZ, AXR unremarkable, hyponatremia (130) POD 9 16: continues to have nausea with a few episodes of larger volume emesis, CT A/P revealed stricture with SBO, NGT placed with symptomatic improvement POD 10 04/02: EGD demonstrating multiple ulcerations near GJ anastamosis POD 11 04/03: Abx started for PNA tx Objective Last value Range last 24hrs Temperature Temp: 37.2 ??C (99 ??F) Temp: [36.8 ??C (98.2 ??F)-38 ??C (100.4 ??F)] Heart Rate Heart Rate: 94 Heart Rate: [94] Blood Pressure BP: 131/76 BP: (118-135)/(68-82) Respiratory Rate Resp: 18 Resp: [12-20] SpO2 SpO2: 91 % SpO2: [88 %-93 %] 2L NC Physical Exam Gen: NAD HEENT: Normocephalic, atraumatic, NGT to nares CV: RRR Pulm: breathing comfortably on 2L NC, no respiratory distress Abd: non-distended, soft, appropriately TP, robotic sites dressed with dermabond, mild ecchymoses, c/d/i. Ext: SCDs in place Skin: warm, dry 24 Hour I/O's: I/O last 3 completed shifts: In: 5345.4 [I.V.:2162.4; Other:130; IV Piggyback:100] Out: 3950 [Urine:3100; Other:850] NGT 600 Admit Weight: 54.89 kg Current Weight: Weight: 53.3 kg (117 lb 9.6 oz) Labs: Recent Labs 04/04/20 0326 04/03/20 0250 04/02/20 0140 WBC 20.5* 18.1* 16.2* HGB 9.1* 10.2* 11.0* HCT 27.1* 30.9* 31.1* PLATELET 367* 380* 351 Recent Labs 04/04/20 0326 04/03/20 0250 04/02/20 1815 04/02/20 0140 04/01/20 1553 NA 134* 129* 132* 131* 128* K 3.3* 3.8 3.9 4.3 3.8 CL 101 96* 96* 94* 89* CO2 28 23 22 24 27 BUN 13 11 8 11 9 CREATININE 0.34* 0.37* 0.40* 0.57* 0.51* GLUCOSE 181 162 92 115 -- CALCIUM 7.8* 7.6* 7.7* 8.2* 8.4* MAGNESIUM 0.84 0.76 -- 0.69 -- PHOS 2.4* 2.2* -- 3.5 -- LFT's No results found for: ALKPHOS, AST, ALBUMIN, BILIDIR, BILITOT, ALT, PROT KHRIS Amylase: 8: 26 129: 22 1210: 15 1211: 327 1212: 12 Micro: Bile duct cx (03/23): NGTD New Imaging: CXR IMPRESSION Airspace opacities in the left mid and lower lung zone, question consolidation, pneumonia or aspiration. Subcutaneous emphysema similar to prior exams. ?? Assessment / Plan: Linda Abel is a 74 y.o. female with PMH breast ca, HTN, pancreatic IPMN, POD 11 s/p robotic Whipple. Her hospital course is now complicated by ulceration at the GJ anastomosis. Initial work up for nausea and vomiting included a CT scan which showed a dilated stomach and contrast refluxing into the biliopancreatic limb. There was concern for ulceration or obstruction. An EGD was obtained yesterday which showed ulceration at the GJ anastomosis. Will plan to continue treating her with PPI BID and NGT decompression. No plans for operative intervention at this time. She is currently on TPN and will likely need to be discharged home with nutritional support eventually She is currently being treated for pneumonia with ceftriaxone/Flagyl for 7-day course. UA was negative. Her white count is increasing this morning, however, she has already received 1 dose of ceftriaxone. We will continue to follow this closely. NEURO: Ok for tylenol, toradol, lidoderm patches. Oxy PRN CV: Hemodynamically normal. discontinued aspirin and HCTZ PULM: Encourage OOB/IS, home albuterol (duoneb) PRN Aspiration PNA: Flagyl/ceftriaxone GI/FEN: #delayed gastric emptying s/p whipple. -Ulcerations at GJ: NGT, PPI BID -TPN given inability to take PO with #moderate protein and caloric malnutrition. RENAL: UOP adequate UA ENDO: Holding home Arimidex, ISS HEME: DVT ppx Lovenox ID: periop antibiotics, BD cultures NG, Ceftriaxone/Flagyl MSK: OOB today PPX: PPI, IS, SCDs LINES: PIV DISPO: Floor status, Attempt Cardiopulmonary Resuscitation - Inpatient Signed: Jayro Murillo MD Surgical Oncology Service Team Pager #[phone] 04/04/20 10:14 AM Surgery Attending Addendum I have seen and examined Maricruz in the late am. I have reviewed the laboratory data.?My exam is unchanged from Dr. Murillo's note above. The assessment and plan were formulated in discussion with meand I agree with them as documented. Maricruz still seems to be quite miserable with the NG tube in place though her voice is much less hoarse and she is able to actually speak in sentences which is encouraging. I had a conversation with her and then also called her son-Roberto Carlos who is down in [place] to chat about the plan going forward. We will be decompressing her stomach with the NG tube throughout the weekend to let this marginal ulcer heal in addition to using the twice daily IV PPI (Protonix) and then hopefully on Monday we can try to get the NG out. She will though require TPN as an outpatient given the severity of this ulcerand the endoscopic findings showing the efferent limb to be edematous. If this does not work meaning that she is unable to have the NG removed and I will be taking her to the operating room for a laparoscopic exploration to find out if there are any adhesions or torsion or other mechanical problem with the efferent jejunal limb to understand why the GJ anastomosis is not emptying. Hopefully this can be avoided. In the meantime she will continue to try to be up and out of bed, ambulate as tolerated. I think she appreciated the conversation and especially because her son was able to listen so that everybody is on the same page. Jennifer Carolina MD 04/04/2020 This note was created using [employer] voice recognition software. Jennifer Carolina MD * Swathi Dyer RN - 04/04/2020 4:08 AM EST OUTCOME EVALUATION NOTE: ?? OUTCOME SUMMARY: Patient is POD#12 Robotic Whipple Patient is A&O, VSS. Reports ABD pain, managed with scheduled medications and IV dilaudid 0.2 mg X2. Denies??passing flatus today and no BM. Pt remains on sips/chips w/NGT in place to LCWS, flushed as ordered--dark brown/green output, tolerating well, denies nausea, TPN @ 75mL/hr. Voiding adequate amounts of urine, dark yellow. Labs drawn. Ambulating with nursing staff. ?? PLAN MOVING FORWARD: -Monitor/manage pain -Encourage OOB, ambulation & IS -NGT-to LCWS -TPN -D/C planning ?? INDIVIDUALIZED FALL PREVENTION INTERVENTIONS: High Fall Risk ?? Patient-specific fall risk factors per assessment: [current deficits]:?74 y.o. with recent surgery, generalized weakness, use of ambulatory aid,??PICC??w/IVFs infusing,??and unfamiliar surroundings. ?? Assistance [level of assistance required for transfers and ambulation]:?SBA with FWW ?? Supervision [direct monitoring required during toileting and ADLs]:?Eyes on, within arms reach ?? Surveillance [continuous indirect monitoring]:?Nurse knowledge exchange, purposeful rounding, environmental modifications (waste basket is out of the path and the IV tubing and cords are free fromthe floor), fall reduction program in place, lighting adjusted for task, bed in low position, wheels locked, side rails up (x2), nonskid socks worn OOB, no restraints, call light is within reach at all times, assistive device, bed/chair alarm, [place] ID band on.? Patient-specific fall prevention interventions for sensory deficits provided, if applicable:?Yes, patient wears glasses ? CPG GOAL OUTCOME EVALUATION:??Will continue to monitor * Josue Lora, RD - 04/03/2020 1:04 PM EST Nutrition Progress Note Patient now s/p robotic whipple now with ileus. Linda Abel is a 74 y.o. female Reason for intervention: TPN Comments:Customized TPN to provide full nutrition of 1390 calories and 110 g protein (2 g/kg) in 1800 ml. Sodium increased to normal saline. Aded 6 units of insulin I was able to discuss plan with provider [id number]. Nutrition Support: TPN Medication Recent History (Show up to 3 orders; newest on the left. Changes between the two most recent orders are indicated.) Start date and time 04/03/2020 1800 03/27/2020 1800 TPN Adult [[id number]] TPN Adult [[id number]] Order Status Active Discontinued Last Admin New Bag at 03/29/2020 1949 by Ness Cummings, RN Medications insulin regular human 6 Units -- Additives trace elements Zn-Cu-Mn-Se 1 mL 1 mL Vit T4-Q4-X5-B5-B6 (B Complex) 1 mL 1 mL zinc sulfate 10 mg 10 mg Pedi multivitamin 1 mL 1 mL Electrolytes sodium phosphate 36 mmol 36 mmol potassium chloride 80 mEq 80 mEq sodium chloride 230 mEq 90 mEq calcium gluconate 8 mEq 8 mEq magnesium sulfate 16 mEq 16 mEq Dextrose dextrose 70% 118 g 118 g Amino Acids amino acid 15% no.5 (ClinisoL) 110 g 110 g QS Base sterile water 571.4 mL 606.46 mL Lipid fat emulsion 30 % 55 g 55 g Energy Contribution Proteins 440 kcal 440 kcal Dextrose 401.27 kcal 401.27 kcal Lipids 549 kcal 549 kcal Total 1,390.27 kcal 1,390.27 kcal Electrolyte Ion Calculated Amount Sodium 278 mEq 138 mEq Potassium 80 mEq 80 mEq Calcium 8 mEq 8 mEq Magnesium 16 mEq 16 mEq Aluminum -- -- Phosphate 38.75 mmol 38.75 mmol Chloride 310 mEq 170 mEq Acetate 93.13 mEq 93.13 mEq Other Total Amino Acid 110 g 110 g Total Amino Acid/kg 2.06 g/kg 2 g/kg Glucose Infusion Rate 1.54 mg/kg/min 1.49 mg/kg/min Osmolarity (Estimated) 1,383.82 1,228.27 Volume 1,800 mL 1,800 mL Rate 75 mL/hr 75 mL/hr Dosing Weight 53.3 kg 54.9 kg Infusion Site [facility] Results Component Value Date NA 129 (L) 04/03/2020 K 3.8 04/03/2020 CL 96 (L) 04/03/2020 CO2 23 04/03/2020 BUN 11 04/03/2020 CREATININE 0.37 (L) 04/03/2020 GFRAA 96 01/09/2020 ESTGFR 106 04/03/2020 MAGNESIUM 0.76 04/03/2020 CALCIUM 7.6 (L) 04/03/2020 PHOS 2.2 (L) 04/03/2020 AST 77 (H) 03/27/2020 ALT 160 (H) 03/27/2020 ALKPHOS 58 03/27/2020 BILITOT 0.4 03/27/2020 HA1C 5.8 (H) 03/30/2020 Lab Results Component Value Date POCGLU 151 04/03/2020 POCGLU 192 04/03/2020 POCGLU 164 04/02/2020 POCGLU 85 04/02/2020 Skin Status: Shift Pressure Injury Prevention Occiput: No Injury Thoracic Spine: No Injury Sacral: No Injury Ischial - left: No Injury Ischial - right: No Injury Heel - left: No Injury Heel - right: No Injury Elbow - left: No Injury Elbow - right: No Injury Device Sites: O2 sat monitor, IV sites Other Sites: Ostomy bag over old drain site Relevant medications: Last Bowel Movement: 03/31/20 Intake/Output Summary (Last 24 hours) at 04/03/2020 1304 Last data filed at 04/03/2020 1143 Gross per 24 hour Intake 3976 ml Output 2300 ml Net 1676 ml Admit Weight: 54.89 kg Estimated body mass index is 21.5 kg/m?? as calculated from the following: Height as of this encounter: 157.5 cm (5' 2.01). Weight as of this encounter: 53.3 kg (117 lb 9.6 oz). Merigold Body Weight: 50 kg Usual Body Weight: 55 kg Wt Readings from Last 10 Encounters: 03/27/20 53.3 kg (117 lb 9.6 oz) 01/28/20 55.8 kg (123 lb) 01/09/20 54.7 kg (120 lb 9.6 oz) 12/20/19 52.2 kg (115 lb) 12/18/19 54.7 kg (120 lb 9.6 oz) 12/11/19 52.2 kg (115 lb) 12/09/19 55.3 kg (122 lb) 11/25/19 55 kg (121 lb 3.2 oz) 11/15/19 54.4 kg (120 lb) Assessment: Estimated needs: Calories: 1375 (25 kcal/kg) Protein: 110 grams (2g/kg) Nutrition Focused Physical Exam (NFPE): Not performed Nutrition intake and intake history/Interview: NPO/clearsx 6 days. No recent weight loss. Protein-calorie Malnutrition: Not identified (Vadim, JPEN J Parenteral Enteral Nutr. 2011; 36(3): 273-83) Nutrition to continue to follow up while inpatient. JOSUE LORA RD Pager #[phone] * Alesha Casillas RN - 04/03/2020 12:26 PM EST This patient requires infusion therapy for TPN. A letter describing our affiliations was reviewed with them and they were educated about their right to choose where referrals are placed. Request referral to [place] [place] for TPN or . Expected date of discharge: 04/07/2020. Patient will require teaching. Referral routed to the [employer] for matching with agency/vendor and to provide any required information. * Olayinka Ojeda OTA - 04/03/2020 11:02 AM EST Occupational Therapy Treatment Note Treatment Number OT: 4 Patient Dx: Linda Abel is a 74 y.o. female admitted on 03/23/2020 with [facility] main duct IPMN,??now Post-Op??s/p robotic whipple on 03/23. ?? Precautions/Special Considerations: Fall risk, PICC, NG tube clamped Interval History: -Per note: -Ceftriaxone/Flagyl started for PNA treatment -UA negative -Voice improved this morning -WBC continues to rise ?? S: I just feel like crying right now, it seem like it's always one step forward and 2 steps back. O: Patient seen for skilled OT treatment, and demonstrated the following: ?? Self-care: ?? Pt educated and discussed stress management skills and breathing exercises. Pt was given validation of her emotions and how she felt about her medical condition. Pt appeared to feel better after session. ?? Functional Mobility: ?? Cognition: ?? Behavior / Mood: alert and cooperative ?? Alert and oriented to: person, place, time and situation ?? Follows commands: multi step ?? Attention: WFL ?? Safety awareness: WFL ?? Vision:WFL ?? Endurance:Good ?? Vitals: VSS ?? Strength/ROM:Decreased but still WFL Pain: Mild discomfort in abdominal area Education: Pt/family/caregiver education ongoing regarding: Role of occupational therapy/rehabilitation, Assistive device/technique, ADL, Safety, Functional Mobility and Activity pacing/Energy conservation. Staff Communication: Patient status, treatment, and mobility recommendations discussed with nursing/other staff. ASSESSMENT: Pt was seen this morning for skilled OT. Pt presented with increased emotion and was educated on stress management skills and demonstrated her ability to utilized them throughout discussion. Pt appeared to feel better after short session. Made plans to see pt on Monday. Pt will benefit from ongoing therapeutic interventions to achieve pt's and therapy goals Anticipated Discharge Disposition: home with assist, home with home health Equipment Recommendations: None Daily schedule / Staff Recommendations: ?? Utilize upright chair position using bed features or transfer to recliner chair as appropriate with assistance as needed, ambulate as tolerated ?? Encourage participation in ADL's by providing set up A on tray table and physical assist only asneeded ?? Occupational Therapy Goals: To be achieved by 04/01/2020. Patient will stand at sink level with supervision x10 min for ADLs. Patient will dress lower body indep with adaptive equipment prn. Patient will ambulate to the bathroom with supervision, assistive device as needed.MET Patient will demonstrate energy conservation principals with all ADLs indep. MET Patient will complete all aspects of toileting with supervision, assistive device as needed. ?? Plan: OT: Therapy Frequency: 2-4 times/wk Planned OT interventions: Role of occupational therapy/rehabilitation, Transfers, Assistive device/technique, Adaptive equipment training, ADL, Positioning, Safety, Precautions/Protocol, Functional Mobility, Activity pacing/Energy conservation, Balance, Recommendations and Discharge planning. ?? Therapy Frequency: 2-4 times/wk Total Evaluation Minutes, Occupational Therapy: 15 Pager: [phone] PEPITO Kirk Occupational Therapy Rehabilitation Department * Katie Santamaria APRN - 04/03/2020 9:06 AM EST Follow Up Diabetes Consult Patient Interview WBC climbing, not eating well delayed gastric emptying 24 Hour Events/Subjective: - WBC rising - EGD demonstrating multiple ulcerations near GJ anastomosis - Complaining of left sided pain. - CXR showing possibly PNA, endorsing cough Objective Temp: [36.6 ??C (97.9 ??F)-37.7 ??C (99.9 ??F)] Heart Rate: [86] Resp: [12-17] BP: (117-217)/(65-99) SpO2: [91 %-100 %] Heart Rate from SpO2: [83 bpm-109 bpm] Current Regimen Lispro for correction q 6 hours using correction scale Diet NPO TPN - resumed last evening did not have custom TPN standard with only 50 mg dextrose Recent Glucose Levels Recent Labs 04/03/20 0518 04/02/20 2257 04/02/20 1717 04/02/20 1212 04/02/20 0958 04/02/20 0804 04/01/20 1948 04/01/20 1531 04/01/20 1120 04/01/20 0730 04/01/20 0443 04/01/20 0006 POCGLU 192 164 85 106 104 106 109 111 138 170 152 141 ASSESSMENT ?? Patient is a 74 y.o. years old female with NO PMH of DM who was admitted on 03/23/2020 for IPMN s/p robotic whipple on 03/23. Will add insulin to TPN as she was hyperglycemic with only 50 G dextrose and will be gettting 118 Gdextrose PLAN Lispro for correction q 6 hours using correction scale Diet NPO TPN - 1:20 I:C ratio Katie Santamaria APRN [facility] [place] Endocrinology Diabetes Management Pager [phone] 20 minutes of this 35 minute visit was spent with the patient in counseling on diabetes and treatment plan, reviewing all glucose and insulin data as well as relevant laboratory results with the patient, and coordination of care on the inpatient unit including nursing and primary team. * Jayro Murillo MD - 04/03/2020 7:49 AM EST Surgical Oncology Inpatient Progress Note Patient Name: Linda MERAZ; Age: 6 1945; 74 y.o. Room/Bed: [address] [place], [place] [address] Today's Date: 04/03/20 ID: Linda Abel is a 74 y.o. female with PMH main duct IPMN, now 1 Day Post-Op s/p robotic whipple. Procedures this Hospitalization: 03/23: Robotic whipple 04/02: EGD OR Findings: No metastatic disease. The liver was healthy appearing. The resection was complicated by ergonomic issues given her small size and limited space within the abdomen- this made the resection and reconstruction take longer given instrument limited range of motion. Otherwise the case went well- minimalblood loss. The pancreatic duct measured 1.5 cm and the bile duct though was quite small - only 5-6mm. After completion of the resection and as we were preparing for the reconstruction it appeared that the common hepatic or proper hepatic artery had what looked like purple discoloration and some aneurysmal dilation extending up into a branch that looked like the right hepatic artery. Her completely replaced right hepatic artery though was nicely palpable. It was unclear whether this was just some tracking of blood along the arterial adventitia or some type of dissection? We spent quite a lotof time watching this and looking at the viability/color of the liver and it appeared completely unc hanged throughout the remainder of the case. Reconstruction was an intracoporal retromesenteric anddecide (Blumgart type) duct to mucosa pancreaticojejunostomy. The pancreatic duct was so massively dilated that we could not stent it. The bile duct anastomosis however was somewhat difficult and that it was so tiny and required an interrupted Blumgart-Debra type hepaticojejunostomy with 5-0 PDS. In testinal continuity was restored by bringing the proximal jejunal limb up as a retrocolic/transmesenteric side to side (Billroth II type) handsewn gastrojejunostomy anastomosis. Final inspection at the end of the case revealed excellent hemostasis and the liver really looked completely normal and there was no areas of demarcation. ?? 24 Hour Events/Subjective: - WBC rising - EGD demonstrating multiple ulcerations near GJ anastomosis - Complaining of left sided pain. - CXR showing possibly PNA, endorsing cough Hospital Course: POD 0 12: To OR for robotic WhippROEL garcia post-op. [...] HTN overnight with mild hyperglycemia. POD 6 12/13: BP continues to be elevated, patient reassured that it is safe to take BP on RUE intermittently POD 7 12/14: Stopped prn BP meds (hydralazine/labetalol), continued HCTZ with goal BP 150/90s per medicine recs POD 8 12/15: nausea with a few episodes of emesis, BP improved on HCTZ, AXR unremarkable, hyponatremia (130) POD 9 16: continues to have nausea with a few episodes of larger volume emesis, CT A/P revealed stricture with SBO, NGT placed with symptomatic improvement POD 10 04/02: EGD demonstrating multiple ulcerations near GJ anastamosis Objective Last value Range last 24hrs Temperature Temp: 37.4 ??C (99.3 ??F) Temp: [36.6 ??C (97.9 ??F)-37.7 ??C (99.9 ??F)] Heart Rate Heart Rate: 86 Heart Rate: [86] Blood Pressure BP: (!) 156/99 BP: (146-217)/(65-99) Respiratory Rate Resp: 16 Resp: [16-17] SpO2 SpO2: 96 % SpO2: [91 %-100 %] 2L NC Physical Exam Gen: NAD HEENT: Normocephalic, atraumatic, NGT to nares CV: RRR Pulm: breathing comfortably on 2L NC, no respiratory distress Abd: non-distended, soft, appropriately TP, robotic sites dressed with dermabond, mild ecchymoses, c/d/i. Ext: SCDs in place Skin: warm, dry 24 Hour I/O's: I/O last 3 completed shifts: In: 2610 [P.O.:60; I.V.:2350; Other:200] Out: 4450 [Urine:2200; Other:2250] NGT 650 Admit Weight: 54.89 kg Current Weight: Weight: 53.3 kg (117 lb 9.6 oz) Labs: Recent Labs 04/03/20 0250 04/02/20 0140 04/01/20 0420 WBC 18.1* 16.2* 9.8* HGB 10.2* 11.0* 11.3* HCT 30.9* 31.1* 32.9* PLATELET 380* 351 320 Recent Labs 04/03/20 0250 04/02/20 1815 04/02/20 0140 04/01/20 1553 04/01/20 0420 NA 129* 132* 131* 128* 130* K 3.8 3.9 4.3 3.8 3.5 CL 96* 96* 94* 89* 91* CO2 23 22 24 27 31 BUN 11 8 11 9 11 CREATININE 0.37* 0.40* 0.57* 0.51* 0.48* GLUCOSE 162 92 115 -- 141 CALCIUM 7.6* 7.7* 8.2* 8.4* 8.3* MAGNESIUM 0.76 -- 0.69 -- -- PHOS 2.2* -- 3.5 -- -- LFT's No results found for: ALKPHOS, AST, ALBUMIN, BILIDIR, BILITOT, ALT, PROT KHRIS Amylase: 03/24: 26 03/25: 22 03/26: 15 03/27: 327 03/28: 12 Micro: Bile duct cx (03/23): NGTD New Imaging: CXR IMPRESSION Airspace opacities in the left mid and lower lung zone, question consolidation, pneumonia or aspiration. Subcutaneous emphysema similar to prior exams. ?? Assessment / Plan: Linda Abel is a 74 y.o. female with PMH breast ca, HTN, pancreatic IPMN, POD 11 s/p robotic Whipple. Her hospital course is now complicated by ulceration at the GJ anastomosis. Initial work up for nausea and vomiting included a CT scan which showed a dilated stomach and contrast refluxing into the biliopancreatic limb. There was concern for ulceration or obstruction. An EGD was obtained yesterday which showed ulceration at the GJ anastomosis. Will plan to continue treating her with PPI BID and NGT decompression. No plans for operative intervention at this time. She is currently on TPN and will likely need to be discharged home with nutritional support eventually Prior to NGT placement she had an episode of emesis. She had a repeat episode during NGT placement.Her WBC has been rising over the past two days and CXR showed possible pneumonia. Given these findings, +cough, will begin treatment for aspiration pneumonia with ceftriaxone/flagyl. Will also complete an infectious work up with a UA NEURO: Ok for tylenol, toradol, lidoderm patches. Oxy PRN CV: Hemodynamically normal. discontinued aspirin and HCTZ PULM: Encourage OOB/IS, home albuterol (duoneb) PRN Aspiration PNA: Flagyl/ceftriaxone GI/FEN: #delayed gastric emptying s/p whipple. -Ulcerations at GJ: NGT, PPI BID -TPN given inability to take PO with #moderate protein and caloric malnutrition. RENAL: UOP adequate UA ENDO: Holding home Arimidex, ISS HEME: DVT ppx Lovenox ID: periop antibiotics, BD cultures NG, Ceftriaxone/Flagyl MSK: OOB today PPX: PPI, IS, SCDs LINES: PIV DISPO: Floor status, Attempt Cardiopulmonary Resuscitation - Inpatient Signed: Jayro Murillo MD Surgical Oncology Service Team Pager #[phone] 04/03/20 7:49 AM * Patricia Jordan PT - 04/02/2020 4:09 PM EST 04/02/20 1600 Rehab Evaluation Document Type contact Total Evaluation Minutes, Physical Therapy 0 Evaluation Not Performed Comment Pt in endoscopy today, follow up tomorrow to address any further PT needs * Olayinka Ojeda OTA - 04/02/2020 2:09 PM EST Attempted to see at this time, pt is leaving the floor for endoscopy, OT will attempt again at a later time. Olayinka BEYER Pager: [phone] * Josue Lora RD - 04/02/2020 12:44 PM EST Nutrition Progress Note Patient now s/p robotic whipple now with ileus. Linda Abel is a 74 y.o. female Reason for intervention: TPN Comments: IV nutrition to be restarted. :Due to staffing shortage in pharmacy IV room TPN provided as Premixed PPN with lytes (2400 ml with 1214 calories and 92 g protein). I was able to discuss plan with provider [id number]. Nutrition Support: TPN Medication Recent History (Show up to 3 orders; newest on the left.) Start date and time 03/27/2020 1800 TPN Adult [[id number]] Order Status Discontinued Last Admin New Bag at 03/29/2020 1949 by Ness Cummings, RN Additives trace elements Zn-Cu-Mn-Se 1 mL Vit N6-P8-S2-B5-B6 (B Complex) 1 mL zinc sulfate 10 mg Pedi multivitamin 1 mL Electrolytes sodium phosphate 36 mmol potassium chloride 80 mEq sodium chloride 90 mEq calcium gluconate 8 mEq magnesium sulfate 16 mEq Dextrose dextrose 70% 118 g Amino Acids amino acid 15% no.5 (ClinisoL) 110 g QS Base sterile water 606.46 mL Lipid fat emulsion 30 % 55 g Energy Contribution Proteins 440 kcal Dextrose 401.27 kcal Lipids 549 kcal Total 1,390.27 kcal Electrolyte Ion Calculated Amount Sodium 138 mEq Potassium 80 mEq Calcium 8 mEq Magnesium 16 mEq Aluminum -- Phosphate 38.75 mmol Chloride 170 mEq Acetate 93.13 mEq Other Total Amino Acid 110 g Total Amino Acid/kg 2 g/kg Glucose Infusion Rate 1.49 mg/kg/min Osmolarity (Estimated) 1,228.27 Volume 1,800 mL Rate 75 mL/hr Dosing Weight 54.9 kg Infusion Site [facility] Lab Results Component Value Date NA 131 (L) 04/02/2020 K 4.3 04/02/2020 CL 94 (L) 04/02/2020 CO2 24 04/02/2020 BUN 11 04/02/2020 CREATININE 0.57 (L) 04/02/2020 GFRAA 96 01/09/2020 ESTGFR 92 04/02/2020 MAGNESIUM 0.69 04/02/2020 CALCIUM 8.2 (L) 04/02/2020 PHOS 3.5 04/02/2020 AST 77 (H) 03/27/2020 ALT 160 (H) 03/27/2020 ALKPHOS 58 03/27/2020 BILITOT 0.4 03/27/2020 HA1C 5.8 (H) 03/30/2020 Lab Results Component Value Date POCGLU 106 04/02/2020 POCGLU 104 04/02/2020 POCGLU 106 04/02/2020 POCGLU 109 04/01/2020 POCGLU 111 04/01/2020 Skin Status: Shift Pressure Injury Prevention Occiput: No Injury Thoracic Spine: No Injury Sacral: No Injury Ischial - left: No Injury Ischial - right: No Injury Heel - left: No Injury Heel - right: No Injury Elbow - left: No Injury Elbow - right: No Injury Device Sites: O2 sat monitor, IV sites, SCD's/venodynes Other Sites: Ostomy bag over old drain site Relevant medications: Last Bowel Movement: 03/31/20 Intake/Output Summary (Last 24 hours) at 04/02/2020 1244 Last data filed at 04/02/2020 0800 Gross per 24 hour Intake 1409 ml Output 3200 ml Net -1791 ml Admit Weight: 54.89 kg Estimated body mass index is 21.5 kg/m?? as calculated from the following: Height as of this encounter: 157.5 cm (5' 2.01). Weight as of this encounter: 53.3 kg (117 lb 9.6 oz). Merigold Body Weight: 50 kg Usual Body Weight: 55 kg Wt Readings from Last 10 Encounters: 03/27/20 53.3 kg (117 lb 9.6 oz) 01/28/20 55.8 kg (123 lb) 01/09/20 54.7 kg (120 lb 9.6 oz) 12/20/19 52.2 kg (115 lb) 12/18/19 54.7 kg (120 lb 9.6 oz) 12/11/19 52.2 kg (115 lb) 12/09/19 55.3 kg (122 lb) 11/25/19 55 kg (121 lb 3.2 oz) 11/15/19 54.4 kg (120 lb) Assessment: Estimated needs: Calories: 1375 (25 kcal/kg) Protein: 110 grams (2g/kg) Nutrition Focused Physical Exam (NFPE): Not performed Nutrition intake and intake history/Interview: NPO/clearsx 6 days. No recent weight loss. Protein-calorie Malnutrition: Not identified (Vadim JPEN J Parenteral Enteral Nutr. 2012 August; 36(3): 273-83) Nutrition to continue to follow up while inpatient. JOSUE LORA RD Pager #[phone] * Davian Carolina MD - 04/02/2020 8:15 AM EST Surgical Oncology Inpatient Progress Note Patient Name: Linda MERAZ; Age: 6 1945; 74 y.o. Room/Bed: [address] [place] [address]A Today's Date: 04/02/20 ID: Linda Abel is a 74 y.o. female with PMH main duct IPMN, now 10 Days Post-Op s/p robotic whipple. Procedures this Hospitalization: 03/23: Robotic whipple OR Findings: No metastatic disease. The liver was healthy appearing. The resection was complicated by ergonomic issues given her small size and limited space within the abdomen- this made the resection and reconstruction take longer given instrument limited range of motion. Otherwise the case went well- minimalblood loss. The pancreatic duct measured 1.5 cm and the bile duct though was quite small - only 5-6mm. After completion of the resection and as we were preparing for the reconstruction it appeared that the common hepatic or proper hepatic artery had what looked like purple discoloration and some aneurysmal dilation extending up into a branch that looked like the right hepatic artery. Her completely replaced right hepatic artery though was nicely palpable. It was unclear whether this was just some tracking of blood along the arterial adventitia or some type of dissection? We spent quite a lotof time watching this and looking at the viability/color of the liver and it appeared completely unc hanged throughout the remainder of the case. Reconstruction was an intracoporal retromesenteric anddecide (Blumgart type) duct to mucosa pancreaticojejunostomy. The pancreatic duct was so massively dilated that we could not stent it. The bile duct anastomosis however was somewhat difficult and that it was so tiny and required an interrupted Blumgart-Debra type hepaticojejunostomy with 5-0 PDS. Intestinal continuity was restored by bringing the proximal jejunal limb up as a retrocolic/transmesenteric side to side (Billroth II type) handsewn gastrojejunostomy anastomosis. Final inspection at the end of the case revealed excellent hemostasis and the liver really looked completely normal and there was no areas of demarcation. ?? 24 Hour Events/Subjective: - CT A/P revealed distended stomach with dilation point in the jejunum - NGT placed for obstruction with improvement in n/v Hospital Course: POD 0 12: To OR for robotic Whipple, ROEL post-op. Note intra-operative concern for common hepaticartery discoloration (? Pseydoaneurysm); post-op LFTS obtained with mild elevation, trended POD 1 12: Convalesced on 2W. OOB to chair and [...] take BP on RUE intermittently POD 7 14: Stopped prn BP meds (hydralazine/labetalol), continued HCTZ with goal BP 150/90s per medicine recs POD 8 1215: nausea with a few episodes of emesis, BP improved on HCTZ, AXR unremarkable, hyponatremia (130) POD 9 16: continues to have nausea with a few episodes of larger volume emesis, CT A/P revealed stricture with SBO, NGT placed with symptomatic improvement Objective Last value Range last 24hrs Temperature Temp: 36.9 ??C (98.4 ??F) Temp: [36.8 ??C (98.2 ??F)-37.6 ??C (99.7 ??F)] Heart Rate Heart Rate: 98 Heart Rate: [89-113] Blood Pressure BP: 148/76 BP: (112-151)/(68-91) Respiratory Rate Resp: 16 Resp: [14-18] SpO2 SpO2: 91 % SpO2: [88 %-97 %] 2L NC Physical Exam Gen: NAD HEENT: Normocephalic, atraumatic, NGT to nares CV: RRR Pulm: breathing comfortably on RA, no respiratory distress Abd: non-distended, soft, appropriately TP, robotic sites dressed with dermabond, mild ecchymoses, c/d/i. Ext: SCDs in place Skin: warm, dry 24 Hour I/O's: I/O last 3 completed shifts: In: 1929 [P.O.:880; I.V.:869; Other:180] Out: 5000 [Urine:2650; Emesis/NG output:1000; Other:1350] Admit Weight: 54.89 kg Current Weight: Weight: 53.3 kg (117 lb 9.6 oz) Labs: Recent Labs 04/02/20 0140 04/01/20 0420 03/31/20 0636 WBC 16.2* 9.8* 9.0 HGB 11.0* 11.3* 11.4* HCT 31.1* 32.9* 33.7* PLATELET 351 320 252 Recent Labs 04/02/20 0140 04/01/20 1553 04/01/20 0420 03/31/20 0636 NA 131* 128* 130* 133* K 4.3 3.8 3.5 3.9 CL 94* 89* 91* 95* CO2 24 27 31 29 BUN 11 9 11 16 CREATININE 0.57* 0.51* 0.48* 0.48* GLUCOSE 115 -- 141 -- CALCIUM 8.2* 8.4* 8.3* 8.7 MAGNESIUM 0.69 -- -- 0.77 PHOS 3.5 -- -- 3.7 LFT's No results found for: ALKPHOS, AST, ALBUMIN, BILIDIR, BILITOT, ALT, PROT KHRIS Amylase: 8: 26 129: 22 1210: 15 1211: 327 1212: 12 Micro: Bile duct cx (03/23): NGTD New Imaging: CT A/P 04/01/2020 IMPRESSION ?? 1. Distended stomach with widely patent gastrojejunostomy. Distal to the gastrojejunostomy the jejunum is dilated to a point where it comes to a beak appearance in the midline anterior abdomen. Distal to this the small bowel is nonopacified and distended. Cannot exclude a possible focal stricture with a partial small bowel obstruction. 2. As noted previously post Whipple procedure. Remaining pancreatic body and tail are unremarkable. 3. Incidental finding of dilated, fluid-filled appendix. Clinical correlation to exclude acute appendicitis. No periappendiceal inflammatory changes Assessment / Plan: Linda Abel is a 74 y.o. female with PMH breast ca, HTN, pancreatic IPMN, 10 Days Post-Op s/p robotic Whipple. Had nausea yesterday throughout day and CT A/P that showed evidence of stricture with SBO. Will continue NGT today and continue to monitor. NEURO: Ok for tylenol, toradol, lidoderm patches. Oxy PRN CV: Hemodynamically normal. discontinued aspirin and HCTZ PULM: Encourage OOB/IS, home albuterol (duoneb) PRN GI/FEN: #delayed gastric emptying s/p whipple. GI consult today for upper endoscopy. f/u PM BMP, start TPN given inability to take PO with #moderate protein and caloric malnutrition. RENAL: UOP adequate ENDO: Holding home Arimidex, ISS HEME: DVT ppx Lovenox ID: periop antibiotics, BD cultures NG MSK: OOB today PPX: PPI, IS, SCDs LINES: PIV DISPO: Floor status, Attempt Cardiopulmonary Resuscitation - Inpatient Signed: Edwardo Mccormack MD Surgical Oncology Service Team Pager #[phone] 04/02/20 10:58 AM Surgery Attending Addendum I have reviewed the laboratory data.?My exam is unchanged from Dr. Mccormack's note above. The assessment and plan were formulated in discussion with me and I agree with them as documented. I just missed Maricruz as they took her to endoscopy for EGD. Plan as above. Jennifer Carolina MD 04/02/2020 2:57 PM * Davian Carolina MD - 04/01/2020 3:58 PM EST Images from the original note were not included. I saw Maricruz this afternoon after the CT. The CT showed contrast in her esphagus and stomach with passage of contrast down the afferent limb of her loop GJ anastomosis but minimal contrast passing downthe efferent limb. See service liaison representative image below. I placed an NG via the right nare with urojet. She vomited up about 400 cc of feculent appearing fluid on first attempt but on 2nd pass the NG placement was successful and copious brown, foul smelling fluid was aspirated. It is at 58 cm at the nare. CXR ordered for placement. I wrote for D5/ 1/2 NS + 20 KCL at 100 cc/h Diet backed down to sips/chips Jennifer Carolina MD 04/01/2020 4:26 PM * [facility] - 04/01/2020 3:28 PM EST Wheel Borer Encounter Note Patient Name: Linda Abel : [id number] MR#: [id number] Admit Date: 03/23/2020 5:51 AM Hospital Day 9 days Narrative: Follow-up visit for continued assessment and support. Patient was not available for visit and I will visit an other time. Assessment: Intervention and Outcome: Follow-up: Time in Direct Care: [facility] 04/01/2020 * Alesha Casillas RN - 04/01/2020 11:17 AM EST OFFICE OF CARE MANAGEMENT Social Work Professor Follow-up Note Alesha Casillas RN reviewed record and discussed patient with Care Team. Patient plan of care discussed in multidisciplinary rounds and assessment for continuing care and discharge needs. Diagnosis: IPMN (intraductal papillary mucinous neoplasm) LOS Hospital: 9 days INSURANCE: Payor: MEDICARE / Plan: MEDICARE PART A & B / Product Type: *No Product type* / SECONDARY INSURANCE: [facility] [place] DECISION MAKER: Attempt Cardiopulmonary Resuscitation - Inpatient <no information> Patient continues to require hospitalization. Per team, patient requires inpatient status r/t nausea, Ct scan, rechecking labs. Discharge date planned for if medically ready. / Current Referral in place: [facility] for RN Transportation: Son will drive patient home via private vehicle when medically ready. Support: Son Social Work Professor to follow with team and family to assist with discharge needs when patient ready for discharge. Alesha Casillas RN Case Management pgr [phone] * Davian Carolina MD - 04/01/2020 9:13 AM EST Surgical Oncology Inpatient Progress Note Patient Name: Linda MERAZ; Age: 6 1945; 74 y.o. Room/Bed: [address] [place] [address] Today's Date: 04/01/20 ID: Linda Abel is a 74 y.o. female with PMH main duct IPMN, now 9 Days Post-Op s/p robotic whipple. Procedures this Hospitalization: 03/23: Robotic whipple OR Findings: No metastatic disease. The liver was healthy appearing. The resection was complicated by ergonomic issues given her small size and limited space within the abdomen- this made the resection and reconstruction take longer given instrument limited range of motion. Otherwise the case went well- minimalblood loss. The pancreatic duct measured 1.5 cm and the bile duct though was quite small - only 5-6mm. After completion of the resection and as we were preparing for the reconstruction it appeared that the common hepatic or proper hepatic artery had what looked like purple discoloration and some aneurysmal dilation extending up into a branch that looked like the right hepatic artery. Her completely replaced right hepatic artery though was nicely palpable. It was unclear whether this was just some tracking of blood along the arterial adventitia or some type of dissection? We spent quite a lotof time watching this and looking at the viability/color of the liver and it appeared completely unc hanged throughout the remainder of the case. Reconstruction was an intracoporal retromesenteric anddecide (Blumgart type) duct to mucosa pancreaticojejunostomy. The pancreatic duct was so massively dilated that we could not stent it. The bile duct anastomosis however was somewhat difficult and that it was so tiny and required an interrupted Blumgart-Debra type hepaticojejunostomy with 5-0 PDS. In testinal continuity was restored by bringing the proximal jejunal limb up as a retrocolic/transmesenteric side to side (Billroth II type) handsewn gastrojejunostomy anastomosis. Final inspection at the end of the case revealed excellent hemostasis and the liver really looked completely normal and there was no areas of demarcation. ?? 24 Hour Events/Subjective: - Continues to be nauseous, had a few episodes of emesis yesterday - AXR yesterday evening revealed a non-obstructive gas pattern - Started on reglan, discontinued ensures (pt attributes nausea in part to ensures) - Hyponatremia (130) on this morning's AM labs - BP readings from RUE stable SBP 120-140s, continues to be on HCTZ Hospital Course: POD 0 12: To OR for robotic Whipple, ROEL post-op. [...] take BP on RUE intermittently POD 7 14: Stopped prn BP meds (hydralazine/labetalol), continued HCTZ with goal BP 150/90s per medicine recs POD 8 03/31: nausea with a few episodes of emesis, BP improved on HCTZ, AXR unremarkable, hyponatremia (130) Objective Last value Range last 24hrs Temperature Temp: 36.9 ??C (98.4 ??F) Temp: [36.8 ??C (98.2 ??F)-37.2 ??C (98.9 ??F)] Heart Rate Heart Rate: (!) 104 Heart Rate: [78-104] Blood Pressure BP: (!) 142/97 BP: (125-146)/(72-97) Respiratory Rate Resp: 17 Resp: [16-20] SpO2 SpO2: 92 % SpO2: [92 %-95 %] 2L NC Physical Exam Gen: NAD HEENT: SQ emphysema around face, neck, and chest resolved CV: RRR Pulm: breathing comfortably on RA, no respiratory distress Abd: non-distended, soft, appropriately TP, robotic sites dressed with dermabond, mild ecchymoses, c/d/i. Ext: SCDs in place Skin: warm, dry 24 Hour I/O's: I/O last 3 completed shifts: In: 1370 [P.O.:1370] Out: 3080 [Urine:2650; Emesis/NG output:400; Other:30] Admit Weight: 54.89 kg Current Weight: Weight: 53.3 kg (117 lb 9.6 oz) Labs: Recent Labs 04/01/2041903/31/20 0636 03/30/20 0120 WBC 9.8* 9.0 10.4* HGB 11.3* 11.4* 12.0 HCT 32.9* 33.7* 34.9* PLATELET 320 252 231 Recent Labs 04/01/2041903/31/20 0636 03/30/20 0120 NA 130* 133* 135 K 3.5 3.9 3.7 CL 91* 95* 98 CO2 31 29 28 BUN 11 16 15 CREATININE 0.48* 0.48* 0.40* GLUCOSE 141 -- -- CALCIUM 8.3* 8.7 8.2* MAGNESIUM -- 0.77 0.83 PHOS -- 3.7 3.3 LFT's No results found for: ALKPHOS, AST, ALBUMIN, BILIDIR, BILITOT, ALT, PROT KHRIS Amylase: 8: 26 129: 22 1210: 15 1211: 327 1212: 12 Micro: Bile duct cx (03/23): NGTD New Imaging: None Assessment / Plan: Linda Abel is a 74 y.o. female with PMH breast ca, HTN, pancreatic IPMN, 9Days Post-Op s/p robotic Whipple. Continues to have nausea with a few episodes of emesis. Will start salt tabs today for hyponatremia. Will also order CT A/P with IV and PO contrast to evaluate for other causes of nausea/emesis. Will continue to monitor NEURO: Ok for tylenol, toradol, lidoderm patches. Oxy PRN CV: Hemodynamically normal. ASA restarted, continue HCTZ PULM: Encourage OOB/IS, home albuterol (duoneb) PRN GI/FEN: Regular diet, CT A/P with PO and IV contrast today, f/u PM BMP, discontinue ensures, continue reglan, start salt tabs RENAL: UOP adequate ENDO: Holding home Arimidex, ISS HEME: DVT ppx Lovenox ID: periop antibiotics, BD cultures NG MSK: OOB today PPX: PPI, IS, SCDs LINES: PIV DISPO: Floor status, Attempt Cardiopulmonary Resuscitation - Inpatient Signed: Edwardo Mccormack MD Surgical Oncology Service Team Pager #[phone] 04/01/20 9:13 AM Surgery attending addendum I agree with Dr. Mccormack's note above. I saw Maricruz this morning and overall all the objective data looks reassuring-normal white blood cell count, vital signs and on exam she mostly is just a little bit distended with few bowel sounds-all consistent with an ileus type picture but this far out from surgery this is somewhat abnormal. She really has not had significant bowel movement recently and we trieda soapsuds enema yesterday and that did not seem to help. The abdominal x-ray from last night also was unrevealing-no significant gastric bubble to suggest delayed gastric emptying and no dilated loops to suggest partial small bowel obstruction for example. Given all this uncertainty we discussed a plan to obtain a CT scan with oral and IV contrast-long prep type protocol so that the contrast can get hopefully down to the colon so that we can better assess the GI transit. I will give her son-Roberto Carlos will call to give him an update on the plan as today we were considering discharge but with these issues certainly discharge is on hold and hopefully we can move forward to a possible discharge for Monday. Jennifer Carolina MD 04/01/2020 9:34 AM This note was created using [employer] voice recognition software. * Gina Greer RN - 03/31/2020 2:58 PM EST Diabetes Clinical Nurse Specialist Met with Mrs. Abel to discuss diabetes prevention. Pt was found to have pre-diabetes (HbA1c 5.8%) and is now S/P Won on 03/23/20. Encouraged pt to eat a healthy diet, get some regular exercise as able to to f/u with her PCP. Provided a One Touch Verio Flex glucose meter and some extra samples of test strips. Advised testing before or two hours after meals, three times/week. To take a record of her results to her f/u appt. Pt practiced the test without difficulty. States that she has no questions at this time. * Alanna Kaplan RN - 03/31/2020 2:48 PM EST OUTCOME EVALUATION NOTE: ?? OUTCOME SUMMARY: ?? Pt's pain ranged from 0-3/10, controlled w/ scheduled tylenol and oxycodone. She had a regular diet, tolerated well. Washer Off to bedside to speak w/ pt. Adequate UOP. Pt states she is not passinggas and is concerned about not having another BM, suppository administered. Pt is ambulating independently in room and ambulated in hallway x2, tolerated well. Worked w/ PT as well. Update: Around 1500 pt had large emesis (400ml), team aware. Zofran administered. Pt continues to be nauseated, team aware. Portable xray to bedside for abdominal scan. PLAN MOVING FORWARD: Pain mgmt. Monitor I&Os. Possible D/C tmr. ?? INDIVIDUALIZED FALL PREVENTION INTERVENTIONS:?Medium Fall Risk ?? Patient-specific fall risk factors per assessment: [current deficits]:?Patient has 2 or more active diagnoses, recent surgery, has a PICC, and pain. ?? Assistance [level of assistance required for transfers and ambulation]:?Independent. ?? Supervision [direct monitoring required during toileting and ADLs]:?Independent. ?? Surveillance [continuous indirect monitoring]:?? masimo, hourly rounding, room near unit station, NKE at bedside, environmental modifications (clutter-free environment, tubing secured, bed low, lighting adjusted, nonskid socks when OOB, bed wheels locked, call light with in reach, upper side rails x2, ID bands on). ?? Patient-specific fall prevention interventions for sensory deficits provided, if applicable:?[X]Yes??wears glasses ? CPG GOAL OUTCOME EVALUATION:? * Olayinka Ojeda OTA - 03/31/2020 1:10 PM EST Occupational Therapy Treatment Note Treatment Number OT: 3 Patient Dx: Linda Abel is a 74 y.o. female admitted on 03/23/2020 with [facility] main duct IPMN,??now Post-Op??s/p robotic whipple on 03/23. ?? Precautions/Special Considerations: Fall risk, PICC, NG tube clamped Interval History: -Per note: - Had an episode of bilious emesis overnight with improvement in nausea - Had a bowel movement after suppository yesterday - BP readings from [facility] have improved significantly SBP 120-140s, continues to be on HCTZ ?? S: I'm most nervous about not having pooped today. O: Patient seen for skilled OT treatment, and demonstrated the following: ?? Self-care: ?? Pt donned socks while sitting in bed independently. ?? Pt was able to stand at the sink and perform grooming tasks. Pt washed her face, performed oral care and combed her hair with supervision and no LOB. ?? Reviewed with pt energy conservation strategies for returning home. Pt verbalized her understanding and stated she knows when to take a break. ?? Functional Mobility: ?? Supine to sitting EOB: SBA ?? Sit to stand: SBA with FWW ?? Ambulation: Pt ambulated in her room and bathroom and was able to stand at the sink for groomingtask a had no LOB with SBA ?? Cognition: ?? Behavior / Mood: alert and cooperative ?? Alert and oriented to: person, place, time and situation ?? Follows commands: multi step ?? Attention: WFL ?? Safety awareness: WFL ?? Vision:WFL ?? Endurance:Good ?? Vitals: VSS ?? Strength/ROM:Decreased but still WFL Pain: Mild discomfort in abdominal area Education: Pt/family/caregiver education ongoing regarding: Role of occupational therapy/rehabilitation, Assistive device/technique, ADL, Safety, Functional Mobility and Activity pacing/Energy conservation. Staff Communication: Patient status, treatment, and mobility recommendations discussed with nursing/other staff. ASSESSMENT: Pt was seen this afternoon for skilled OT. Session focussed on LB dressing, standing grooming tasks at the sink for grooming tasks, and reviewing energy conservation strategies. Pt continues to demonstrate improved self care and improved activity tolerance. Pt verbalized a good understanding of energy conservation strategies. Pt will benefit from ongoing therapeutic interventions to achieve pt's and therapy goals Anticipated Discharge Disposition: home with assist, home with home health Equipment Recommendations: None Daily schedule / Staff Recommendations: ?? Utilize upright chair position using bed features or transfer to recliner chair as appropriate with assistance as needed, ambulate as tolerated ?? Encourage participation in ADL's by providing set up A on tray table and physical assist only asneeded ?? Occupational Therapy Goals: To be achieved by 04/01/2020. Patient will stand at sink level with supervision x10 min for ADLs. Patient will dress lower body indep with adaptive equipment prn. Patient will ambulate to the bathroom with supervision, assistive device as needed.MET Patient will demonstrate energy conservation principals with all ADLs indep. MET Patient will complete all aspects of toileting with supervision, assistive device as needed. ?? Plan: OT: Therapy Frequency: 2-4 times/wk Planned OT interventions: Role of occupational therapy/rehabilitation, Transfers, Assistive device/technique, Adaptive equipment training, ADL, Positioning, Safety, Precautions/Protocol, Functional Mobility, Activity pacing/Energy conservation, Balance, Recommendations and Discharge planning. ?? Therapy Frequency: 2-4 times/wk Total Evaluation Minutes, Occupational Therapy: 23 Pager: [phone] PEPITO Kirk Occupational Therapy Rehabilitation Department * Janet Grimes RD - 03/31/2020 9:45 AM EST Nutrition Progress Note Patient admitted with PMH main duct IPMN, now 8 Days Post-Op s/p robotic whipple. Linda Abel is a 74 y.o. female Reason for intervention: Follow up Nutrition Recommendations: ?? Pt tolerating regular diet 75-100% meal completion today, ordering small meals ?? Pt stated some confusion regarding optimal diet for DC planning and we reviewed soft food with moderate healthy carbohydrate content to support BG control ?? Pt was open to suggested high protein foods to optimize nutrient intake and support healing ?? Added Uzbek yogurt with meals and reviewed foods for optimizing protein intake ?? Written information provided for DC planning; Tips to Better Food intake, Consistent CHO meal planning with suggested soft foods and small frequent meals. Active Orders Diet Regular diet Frequency: Effective Now Number of Occurrences: Until Specified Nourishments Adult diet Oral Supplements Ensure Enlive Frequency: BID Number of Occurrences: Until Specified Lab Results Component Value Date NA 133 (L) 03/31/2020 K 3.9 03/31/2020 CL 95 (L) 03/31/2020 CO2 29 03/31/2020 BUN 16 03/31/2020 CREATININE 0.48 (L) 03/31/2020 GFRAA 96 01/09/2020 ESTGFR 97 03/31/2020 MAGNESIUM 0.77 03/31/2020 CALCIUM 8.7 03/31/2020 PHOS 3.7 03/31/2020 AST 77 (H) 03/27/2020 ALT 160 (H) 03/27/2020 ALKPHOS 58 03/27/2020 BILITOT 0.4 03/27/2020 HA1C 5.8 (H) 03/30/2020 Lab Results Component Value Date POCGLU 128 03/31/2020 POCGLU 136 03/30/2020 POCGLU 129 03/30/2020 POCGLU 156 03/30/2020 Skin Status: Shift Pressure Injury Prevention Occiput: No Injury Thoracic Spine: No Injury Sacral: No Injury Ischial - left: No Injury Ischial - right: No Injury Heel - left: No Injury Heel - right: No Injury Elbow - left: No Injury Elbow - right: No Injury Device Sites: O2 sat monitor, SCD's/venodynes, IV sites Other Sites: urostomy site over KHRIS Relevant medications: noted Last Bowel Movement: 03/30/20 Admit Weight: 54.89 kg Estimated body mass index is 21.5 kg/m?? as calculated from the following: Height as of this encounter: 157.5 cm (5' 2.01). Weight as of this encounter: 53.3 kg (117 lb 9.6 oz). Merigold Body Weight: 50 kg Usual Body Weight: 55 kg Wt Readings from Last 10 Encounters: 03/27/20 53.3 kg (117 lb 9.6 oz) 01/28/20 55.8 kg (123 lb) 01/09/20 54.7 kg (120 lb 9.6 oz) 12/20/19 52.2 kg (115 lb) 12/18/19 54.7 kg (120 lb 9.6 oz) 12/11/19 52.2 kg (115 lb) 12/09/19 55.3 kg (122 lb) 11/25/19 55 kg (121 lb 3.2 oz) 11/15/19 54.4 kg (120 lb) Assessment: Estimated needs: Calories: 1630 (30 kcal/kg) Protein: 100 grams (1.9g/kg) Nutrition Focused Physical Exam (NFPE): Not performed Nutrition intake and intake history/Interview: Pt states she was able to eat ~ 75 % breakfast meal today, note episode of emesis yesterday associated with bowel regime. She states she had poor appetite CLINICAL OUTCOMES MANAGER and wonders if some of her elevated A1C CLINICAL OUTCOMES MANAGER was due to an unusually higher intake of sweets her family provided as energy conservation foods. She states she has support to choose soft easy to digest foods post DC and was appreciative of review of role of healthy CHO foods for healthy nutrition to support healing. Protein-calorie Malnutrition: Not identified (Chencho et al, JPEN J Parenteral Enteral Nutr. 2012 August; 36(3): 273-83) Nutrition to continue to follow up while inpatient JANET GR[address] RD Pager #:[phone] * Lisa Villa, CLINICAL OUTCOMES MANAGER - 03/31/2020 9:04 AM EST Physical Therapy Note Treatment Number PT: 3 Patient profile: Linda Abel??is a 74 y.o.??female??with [facility] main duct IPMN,??s/p robotic whipple on 03/23 Interval History: decreased eye swelling and decreased crepitus, mental status cleared, ambulating with nursing staff, Social History: Pt lives alone in a multi level home with 5 steps to enter. 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 Mobility and Positioning Recommendations: ?? Pt. to utilize cg/min asst of 1 for transfers with nursing. Ambulate with FWW ?? Please encourage up to chair as able. ?? Pt encouraged to ambulate frequently with staff, getting into the bathroom for toileting and walking out in the hammer >/= 3 times daily as able. ?? Subjective: ???I'm hoping I get out of here tomorrow. Objective: Pt seen for mobility today. ?? Pain: tolerable throughout ?? Vital Signs: SpO2: WNL on RA HR: 80s bpm Mental Status: awake, oriented, appears a little fatigued but motivated ?? Vision: WFL, wears reading glasses ? Bed Mobility: Supine to Sit: indep Sit to Supine: indep Transfers: Sit to Stand: supervision Stand to Sit: supervision Bed to Chair: supervision ?? Gait: Distance: 150' Device used: none Level of assist: supervision Gait mechanics: steady, slightly decreased lawanda but WFL Stairs: FOS SBA, 1 rail, reciprocal steps, steady ?? Balance: WFL standing balance, slightly guarded but steady throughout treatment, able to fix bed linens without instability ?? Pt left supine in bed, call blanco within reach, all needs mets. RN updated. ?? Patient status, treatment, and mobility recommendations discussed with nursing. Assessment: Linda Abel was seen today for physical therapy treatment session for continuationof POC. Pt mobilizing well with general supervision, able to clear FOS. Has been walking with nsg. Pt cleared for home from PT standpoint, recommend assist of son to facilitate safe transition to home. Discharge Recommendations: Home with support of her son. AMINTA RN as needed. Equipment needs: No equipment necessary Physical Therapy Goals: To be achieved by 03/31: ?? 1. Pt. to demonstrate knowledge of safety limitations and precautions and will appropriately request assistance for functional activities and to mobilize. 2. Pt. to demonstrate understanding of appropriate warm up exercises. 3. Pt. to perform bed mobility with modified independence. 4. Pt. to perform sit to stand transfers with supervision . 5. Pt. to ambulate 150 feet with supervision 6. Pt. to ambulate up/down FOS if needed for home discharge. Family or caregiver to demonstrate understanding of therapeutic interventions to support the care of the patient. Time IN / OUT: 7115-0778 Total Evaluation Minutes, Physical Therapy: 16(TEF 1) Lisa Villa PTA Pager: [phone] Physical Therapy Inpatient Rehabilitation Department * Davian Carolina MD - 03/31/2020 7:26 AM EST Surgical Oncology Inpatient Progress Note Patient Name: Linda MERAZ; Age: 6 1945; 74 y.o. Room/Bed: [address] [place], [place] [address] Today's Date: 03/31/20 ID: Linda Abel is a 74 y.o. female with PMH main duct IPMN, now 8 Days Post-Op s/p robotic whipple. Procedures this Hospitalization: 03/23: Robotic whipple OR Findings: No metastatic disease. The liver was healthy appearing. The resection was complicated by ergonomic issues given her small size and limited space within the abdomen- this made the resection and reconstruction take longer given instrument limited range of motion. Otherwise the case went well- minimalblood loss. The pancreatic duct measured 1.5 cm and the bile duct though was quite small - only 5-6mm. After completion of the resection and as we were preparing for the reconstruction it appeared that the common hepatic or proper hepatic artery had what looked like purple discoloration and some aneurysmal dilation extending up into a branch that looked like the right hepatic artery. Her completely replaced right hepatic artery though was nicely palpable. It was unclear whether this was just some tracking of blood along the arterial adventitia or some type of dissection? We spent quite a lotof time watching this and looking at the viability/color of the liver and it appeared completely unc hanged throughout the remainder of the case. Reconstruction was an intracoporal retromesenteric anddecide (Blumgart type) duct to mucosa pancreaticojejunostomy. The pancreatic duct was so massively dilated that we could not stent it. The bile duct anastomosis however was somewhat difficult and that it was so tiny and required an interrupted Blumgart-Debra type hepaticojejunostomy with 5-0 PDS. Intestinal continuity was restored by bringing the proximal jejunal limb up as a retrocolic/transmesenteric side to side (Billroth II type) handsewn gastrojejunostomy anastomosis. Final inspection at the end of the case revealed excellent hemostasis and the liver really looked completely normal and there was no areas of demarcation. ?? 24 Hour Events/Subjective: - Had an episode of bilious emesis overnight with improvement in nausea - Had a bowel movement after suppository yesterday - BP readings from RUE have improved significantly SBP 120-140s, continues to be on HCTZ Hospital Course: POD 0 12: To OR for robotic ROEL Upton post-op. Note intra-operative concern for common hepaticartery [...] with goal BP 150/90s per medicine recs Objective Last value Range last 24hrs Temperature Temp: 36.8 ??C (98.2 ??F) Temp: [36.6 ??C (97.9 ??F)-36.9 ??C (98.4 ??F)] Heart Rate Heart Rate: 70 Heart Rate: [70-77] Blood Pressure BP: 124/72 BP: (120-168)/(68-99) Respiratory Rate Resp: 16 Resp: [14-18] SpO2 SpO2: 94 % SpO2: [93 %-96 %] 2L NC Physical Exam Gen: NAD HEENT: SQ emphysema around face, neck, and chest resolved CV: RRR Pulm: breathing comfortably on RA, no respiratory distress Abd: non-distended, soft, appropriately TP, robotic sites dressed with dermabond, mild ecchymoses, c/d/i. Ext: SCDs in place Skin: warm, dry 24 Hour I/O's: I/O last 3 completed shifts: In: 2784 [P.O.:1790; I.V.:226] Out: 2955 [Urine:2925; Other:30] Admit Weight: 54.89 kg Current Weight: Weight: 53.3 kg (117 lb 9.6 oz) Labs: Recent Labs 03/31/20 0636 03/30/20 0120 03/29/20 0120 WBC 9.0 10.4* 6.8 HGB 11.4* 12.0 11.3* HCT 33.7* 34.9* 31.8* PLATELET 252 231 176 Recent Labs 03/30/20 0120 03/29/20 0230 NA 135 139 K 3.7 3.6 CL 98 104 CO2 28 28 BUN 15 18 CREATININE 0.40* 0.40* GLUCOSE -- 163 CALCIUM 8.2* 7.9* MAGNESIUM 0.83 0.86 PHOS 3.3 3.0 LFT's No results found for: ALKPHOS, AST, ALBUMIN, BILIDIR, BILITOT, ALT, PROT KHRIS Amylase: 8: 26 129: 22 1210: 15 1211: 327 1212: 12 Micro: Bile duct cx (03/23): NGTD New Imaging: None Assessment / Plan: Linda Abel is a 74 y.o. female with PMH breast ca, HTN, pancreatic IPMN, 8Days Post-Op s/p robotic Whipple. Progressing well from surgical standpoint. Consult medicine for BP management OK to take intermittent BP from RUE from surgical standpoint 1/2 portion regular diet Likely discharge Monday (04/01) NEURO: Ok for tylenol, toradol, lidoderm patches. Oxy PRN CV: Hemodynamically normal. ASA restarted, continue HCTZ PULM: Encourage OOB/IS, home albuterol (duoneb) PRN GI/FEN: Regular diet RENAL: UOP adequate ENDO: Holding home Arimidex, ISS HEME: DVT ppx Lovenox ID: periop antibiotics, BD cultures NG MSK: OOB today PPX: PPI, IS, SCDs LINES: PIV DISPO: Floor status, Attempt Cardiopulmonary Resuscitation - Inpatient Signed: Edwardo Mccormack MD Surgical Oncology Service Team Pager #[phone] 03/31/20 7:23 AM Surgery attending addendum I saw Maricruz this afternoon. She still feels very bloated but forced down 1 of those and sure-Enlive drinks. She is having hiccups and burping. I examined her when she had just gotten back from the chair and she was in bed to sitting up. Her abdomen looked a little distended but no more so than yesterday. She does not really have a lot of bowel sounds on my exam. She had a bowel movement apparently last night but would also like to try another suppository and said I do not want to go home unless I can poop. I let her know the good news on the pathology report which showed that she did in fact have an IPMNwith high-grade dysplasia but no carcinoma in situ and no cancer. Lymph nodes negative. Pancreatic neck margin was negative for IPMN which is a good sign-no need for further chemotherapy will just have to keep a close eye on the remnant pancreas for transformation of the IPMN. She was happy to hearthis good news. Jennifer Carolina MD 03/31/2020 2:36 PM This note was created using [employer]) voice recognition software. * Elma Zacarias MD - 03/30/2020 11:23 PM EST BRIEF INTERVAL PROGRESS NOTE: ID: Linda Abel is a 74 y.o. female with PMH main duct IPMN, now 7 Days Post-Op s/p robotic whipple. I was paged to the bedside after Mrs. Abel had one episode of bilious emesis. She reported that she felt nauseated prior to the episode, but since her emesis, her nausea has almost completely resolved. She denies any abdominal pain, chest pain, shortness of breath. She reports that her last BMwas this today and she passed flatus with the BM. She was nontender to palpation on exam with port sited well approximated with dermabond. I will continue to monitor and she will ask for nausea medications if her nausea returns. Elma Zacarias MD 03/30/20 * Swathi Dyer RN - 03/30/2020 4:08 PM EST OUTCOME EVALUATION NOTE: ?? OUTCOME SUMMARY: Patient is POD#7 Robotic Whipple Patient is A&O, hypertensive, otherwise VSS. Consult to hospital medicine r/t HTN, d/c'd hydralazine & labetalol. Increase abd pain, managed with scheduled medications and PRN Toradol and Oxy5MG X2. Denies passing flatus today and no BM. Dr. Carolina at bedside, Dulcolax suppository given, stool felt in rectum during insertion. Pt advised to either eat, sitting up in the chair or back of bed up high, will continue to monitor. Tolerating regular, small portions, denies nausea, creon started today. TPN d/c'd today. Consult with Endocrine. KHRSI site with scant serosanguineous output.. Voiding adequate amounts of urine. Labs drawn (A1C, C-peptide). Patient OOB up to chair for dinner and ambulating today. PLAN MOVING FORWARD: -Monitor/manage pain -Encourage PO intake -Encourage OOB, ambulation & IS -D/C Monday? ?? INDIVIDUALIZED FALL PREVENTION INTERVENTIONS: High Fall Risk ?? Patient-specific fall risk factors per assessment: [current deficits]:?74 y.o. with recent surgery, generalized weakness, use of ambulatory aid, PICC w/IVFs infusing, and unfamiliar surroundings. ?? Assistance [level of assistance required for transfers and ambulation]:?SBA with FWW ?? Supervision [direct monitoring required during toileting and ADLs]:?Eyes on, within arms reach ?? Surveillance [continuous indirect monitoring]:?Nurse knowledge exchange, purposeful rounding, environmental modifications (waste basket is out of the path and the IV tubing and cords are free fromthe floor), fall reduction program in place, lighting adjusted for task, bed in low position, wheels locked, side rails up (x2), nonskid socks worn OOB, no restraints, call light is within reach at all times, assistive device, bed/chair alarm, [place] ID band on. ?? Patient-specific fall prevention interventions for sensory deficits provided, if applicable:?Yes, patient wears glasses ? CPG GOAL OUTCOME EVALUATION: Will continue to monitor Alesha Toro RN - 03/30/2020 11:26 AM EST OFFICE OF CARE MANAGEMENT Social Work Professor Follow-up Note Alesha Casillas RN reviewed record and discussed patient with Care Team. Patient plan of care discussed in multidisciplinary rounds and assessment for continuing care and discharge needs. Diagnosis: IPMN (intraductal papillary mucinous neoplasm) LOS Hospital: 7 days INSURANCE: Payor: MEDICARE / Plan: MEDICARE PART A & B / Product Type: *No Product type* / SECONDARY INSURANCE: [employer] [facility] [place] DECISION MAKER: Attempt Cardiopulmonary Resuscitation - Inpatient <no information> Patient continues to require hospitalization. Per team, patient requires inpatient status r/t stopping TPN, diabetes teaching needed and Medicine consult for HTN management. Discharge date planned for 04/01 if medically ready. Current Referral in place: [facility] for RN. Transportation: Son will drive patient home via private vehicle when medically ready. Support: Son Social Work Professor to follow with team and family to assist with discharge needs when patient ready for discharge. Alesha Casillas RN Case Management pgr [phone] * Davian Carolina MD - 03/30/2020 7:05 AM EST Surgical Oncology Inpatient Progress Note Patient Name: Linda MERAZ; Age: 6 1945; 74 y.o. Room/Bed: 207/207-A Today's Date: 03/30/20 ID: Linda Abel is a 74 y.o. female with PMH main duct IPMN, now 7 Days Post-Op s/p robotic whipple. Procedures this Hospitalization: 03/23: Robotic whipple OR Findings: No metastatic disease. The liver was healthy appearing. The resection was complicated by ergonomic issues given her small size and limited space within the abdomen- this made the resection and reconstruction take longer given instrument limited range of motion. Otherwise the case went well- minimalblood loss. The pancreatic duct measured 1.5 cm and the bile duct though was quite small - only 5-6mm. After completion of the resection and as we were preparing for the reconstruction it appeared that the common hepatic or proper hepatic artery had what looked like purple discoloration and some aneurysmal dilation extending up into a branch that looked like the right hepatic artery. Her completely replaced right hepatic artery though was nicely palpable. It was unclear whether this was just some tracking of blood along the arterial adventitia or some type of dissection? We spent quite a lotof time watching this and looking at the viability/color of the liver and it appeared completely unc hanged throughout the remainder of the case. Reconstruction was an intracoporal retromesenteric anddecide (Blumgart type) duct to mucosa pancreaticojejunostomy. The pancreatic duct was so massively dilated that we could not stent it. The bile duct anastomosis however was somewhat difficult and that it was so tiny and required an interrupted Blumgart-Debra type hepaticojejunostomy with 5-0 PDS. In testinal continuity was restored by bringing the proximal jejunal limb up as a retrocolic/transmesenteric side to side (Billroth II type) handsewn gastrojejunostomy anastomosis. Final inspection at the end of the case revealed excellent hemostasis and the liver really looked completely normal and there was no areas of demarcation. ?? 24 Hour Events/Subjective: - NAEON - Continues to be hypertensive Hospital Course: POD 0 03/23: To OR for robotic ROEL Upton post-op. Note intra-operative concern for common hepaticartery discoloration (? Pseydoaneurysm); post-op LFTS obtained with mild elevation, trended POD 1 128: Convalesced on 2W. OOB to chair and walked x 1. Some paranoia/disorientation. PICC placed. POD 2 /: Disoriented overnight but redirectable, improved during day. Transferred to private room. POD 3 03/26: CTA for bump in LFTs in light of concern over LARA anatomy in OR; negative for aneurysm. Small Left effusion. Awaiting ROBF. POD 4 /: clamp trial with 200cc out, NGT remained in overnight, +flatus. POD 5 03/28: NGT and KHRIS drain removed. Tolerated clears. HTN overnight with mild hyperglycemia. POD 6 03/29: BP continues to be elevated, patient reassured that it is safe to take BP on RUE intermittently Objective Last value Range last 24hrs Temperature Temp: 37 ??C (98.6 ??F) Temp: [36.8 ??C (98.2 ??F)-37.2 ??C (99 ??F)] Heart Rate Heart Rate: 70 Heart Rate: [70-80] Blood Pressure BP: (!) 179/98([place] notified) BP: (169-188)/(94-101) Respiratory Rate Resp: 16 Resp: [16-18] SpO2 SpO2: 95 % SpO2: [93 %-95 %] 2L NC Physical Exam Gen: NAD HEENT: SQ emphysema around face, neck, and chest resolved CV: RRR Pulm: breathing comfortably on RA, no respiratory distress Abd: non-distended, soft, appropriately TP, robotic sites dressed with dermabond, mild ecchymoses, c/d/i. Ext: SCDs in place Skin: warm, dry 24 Hour I/O's: I/O last 3 completed shifts: In: 3025.3 [P.O.:840; I.V.:363.3] Out: 3175 [Urine:3175] Admit Weight: 54.89 kg Current Weight: Weight: 53.3 kg (117 lb 9.6 oz) Labs: Recent Labs 03/30/20 0120 03/29/20 0120 03/28/20 0145 WBC 10.4* 6.8 6.9 HGB 12.0 11.3* 11.3* HCT 34.9* 31.8* 33.4* PLATELET 231 176 205 Recent Labs 03/30/20 0120 03/29/20 0230 03/28/20 0145 NA 135 139 139 K 3.7 3.6 3.7 CL 98 104 103 CO2 28 28 27 BUN 15 18 17 CREATININE 0.40* 0.40* 0.46* GLUCOSE -- 163 -- CALCIUM 8.2* 7.9* 8.4* MAGNESIUM 0.83 0.86 0.87 PHOS 3.3 3.0 2.9 LFT's No results found for: ALKPHOS, AST, ALBUMIN, BILIDIR, BILITOT, ALT, PROT KHRIS Amylase: 03/24: 26 12: 22 03/26: 15 12: 327 03/28: 12 Micro: Bile duct cx (03/23): NGTD New Imaging: CTA Abdomen (03/26): 1. Normal appearance of celiac axis and its branches. No evidence of aneurysm or pseudoaneurysm. 2. Post Whipple procedure with expected postoperative changes. 3. Bilateral pleural effusions with LEFT basilar focal atelectasis Assessment / Plan: Linda Abel is a 74 y.o. female with PMH breast ca, HTN, pancreatic IPMN, 7Days Post-Op s/p robotic Whipple. Progressing well from surgical standpoint. Consult medicine for BP management OK to take intermittent BP from RUE from surgical standpoint Stop TPN today 1/2 portion regular diet Consult diabetes management Likely discharge Monday (04/01) NEURO: Ok for tylenol, toradol, lidoderm patches. Oxy PRN CV: Hemodynamically normal. ASA restarted PULM: Encourage OOB/IS, home albuterol (duoneb) PRN GI/FEN: TPN Adult Regular diet RENAL: UOP adequate ENDO: Holding home Arimidex, ISS HEME: DVT ppx Lovenox ID: periop antibiotics, BD cultures NG MSK: OOB today PPX: PPI, IS, SCDs LINES: PIV DISPO: Floor status, Attempt Cardiopulmonary Resuscitation - Inpatient Signed: Edwardo Mccormack MD Surgical Oncology Service Team Pager #[phone] 03/30/20 7:05 AM Surgery Attending Addendum I have seen and examined Maricruz in the pm on Monday. I have reviewed the laboratory data.?My exam is unchanged from Dr. Mccormack's note above. The assessment and plan were formulated in discussion with meand I agree with them as documented. She was having 'more burping' and was feeling interested in eating dinner tonight. I told her to take it slow and if she feels worse to try to sit up or go for a walk to see if that helps with gastric emptying. No concerns on exam though she looks a little more distended. Normal bowel sounds. We appreciate Katie for seeing her to discuss post pancreatectomy diabetes though now that she is off TPN I am doubtful she will require insulin. I like the plan to give her the free glucometer to check her sugars at home and to meet with Gina Greer for DM prevention education. Jennifer Carolina MD * Swathi Dyer RN - 03/29/2020 1:27 PM EST OUTCOME EVALUATION NOTE: ?? OUTCOME SUMMARY: Patient is POD#6 Robotic Whipple Patient is A&O, hypertensive, otherwise VSS, hydrochlorothiazide started this morning. Denies pain, managed with scheduled medications. 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 Diet increased to Regular diet, tolerating well,denies nausea. TPN infusing per MD orders (See MAR). Place urstomy appliance over KHRIS site with serosanguineous output.. Voiding adequate amounts of urine. Frequent scant BM this shift, loose/mucoid, brown, passing flatus. Patient OOB up to chair for breakfast/dinner, ambulated and showered today. ?? PLAN MOVING FORWARD: -Monitor/manage pain -Encourage OOB, ambulation & IS -D/C TPN -D/C Monday? INDIVIDUALIZED FALL PREVENTION INTERVENTIONS: High Fall Risk ?? Patient-specific fall risk factors per assessment: [current deficits]:?74 y.o. with recent surgery, generalized weakness, use of ambulatory aid, PICC w/IVFs infusing, and unfamiliar surroundings. Assistance [level of assistance required for transfers and ambulation]:?SBA with FWW ?? Supervision [direct monitoring required during toileting and ADLs]:?Eyes on, within arms reach ?? Surveillance [continuous indirect monitoring]:?Nurse knowledge exchange, purposeful rounding, environmental modifications (waste basket is out of the path and the IV tubing and cords are free fromthe floor), fall reduction program in place, lighting adjusted for task, bed in low position, wheels locked, side rails up (x2), nonskid socks worn OOB, no restraints, call light is within reach at all times, assistive device, bed/chair alarm, [place] ID band on. ?? Patient-specific fall prevention interventions for sensory deficits provided, if applicable:?Yes, patient wears glasses ? CPG GOAL OUTCOME EVALUATION: Will continue to monitor * Davian Carolina MD - 03/29/2020 9:57 AM EST Surgical Oncology Inpatient Progress Note Patient Name: Linda MERAZ; Age: 6 1945; 74 y.o. Room/Bed: [address] [place], [place] [address] Today's Date: 03/29/20 ID: Linda Abel is a 74 y.o. female with PMH main duct IPMN, now 6 Days Post-Op s/p robotic whipple. Procedures this Hospitalization: 03/23: Robotic whipple OR Findings: No metastatic disease. The liver was healthy appearing. The resection was complicated by ergonomic issues given her small size and limited space within the abdomen- this made the resection and reconstruction take longer given instrument limited range of motion. Otherwise the case went well- minimalblood loss. The pancreatic duct measured 1.5 cm and the bile duct though was quite small - only 5-6mm. After completion of the resection and as we were preparing for the reconstruction it appeared that the common hepatic or proper hepatic artery had what looked like purple discoloration and some aneurysmal dilation extending up into a branch that looked like the right hepatic artery. Her completely replaced right hepatic artery though was nicely palpable. It was unclear whether this was just some tracking of blood along the arterial adventitia or some type of dissection? We spent quite a lotof time watching this and looking at the viability/color of the liver and it appeared completely unc hanged throughout the remainder of the case. Reconstruction was an intracoporal retromesenteric anddecide (Blumgart type) duct to mucosa pancreaticojejunostomy. The pancreatic duct was so massively dilated that we could not stent it. The bile duct anastomosis however was somewhat difficult and that it was so tiny and required an interrupted Blumgart-Debra type hepaticojejunostomy with 5-0 PDS. In testinal continuity was restored by bringing the proximal jejunal limb up as a retrocolic/transmesenteric side to side (Billroth II type) handsewn gastrojejunostomy anastomosis. Final inspection at the end of the case revealed excellent hemostasis and the liver really looked completely normal and there was no areas of demarcation. ?? 24 Hour Events/Subjective: -NGT and KHRIS drain removed -Ambulated x3 -BM this AM Hospital Course: POD 0 12: To OR for robotic WhippleROEL post-op. Note intra-operative concern for common hepaticartery discoloration (? Pseydoaneurysm); post-op LFTS obtained with mild elevation, trended POD 1 12: Convalesced on 2W. OOB to chair and walked x 1. Some paranoia/disorientation. PICC placed. POD 2 03/25: Disoriented overnight but redirectable, improved during day. Transferred to private room. POD 3 03/26: CTA for bump in LFTs in light of concern over LARA anatomy in OR; negative for aneurysm. Small Left effusion. Awaiting ROBF. POD 4 /: clamp trial with 200cc out, NGT remained in overnight, +flatus. POD 5 03/28: NGT and KHRIS drain removed. Tolerated clears. HTN overnight with mild hyperglycemia. Objective Last value Range last 24hrs Temperature Temp: 36.9 ??C (98.4 ??F) Temp: [36.5 ??C (97.7 ??F)-37.3 ??C (99.2 ??F)] Heart Rate Heart Rate: 80 Heart Rate: [78-81] Blood Pressure BP: (!) 171/99 BP: (166-178)/(92-106) Respiratory Rate Resp: 18 Resp: [18] SpO2 SpO2: 93 % SpO2: [92 %-94 %] 2L NC Physical Exam Gen: NAD HEENT: SQ emphysema around face, neck, and chest resolved CV: RRR Pulm: breathing comfortably on RA, no respiratory distress Abd: non-distended, soft, appropriately TP, robotic sites dressed with dermabond, mild ecchymoses, c/d/i. Ext: SCDs in place Skin: warm, dry Drains: Surgical KHRIS drain removed 03/28 None 24 Hour I/O's: I/O last 3 completed shifts: In: 3766 [P.O.:921; I.V.:328; NG/GT:60] Out: 3900 [Urine:2300; Other:1600] Admit Weight: 54.89 kg Current Weight: Weight: 53.3 kg (117 lb 9.6 oz) Labs: Recent Labs 03/29/20 0120 03/28/20 0145 03/27/20 0320 WBC 6.8 6.9 7.6 HGB 11.3* 11.3* 11.7 HCT 31.8* 33.4* 35.5* PLATELET 176 205 198 Recent Labs 03/29/20 0230 03/28/20 0145 03/27/20 0320 NA 139 139 139 K 3.6 3.7 3.8 CL 104 103 101 CO2 28 27 27 BUN 18 17 12 CREATININE 0.40* 0.46* 0.49* GLUCOSE 163 -- 73 CALCIUM 7.9* 8.4* 8.5 MAGNESIUM 0.86 0.87 0.87 PHOS 3.0 2.9 3.1 LFT's No results found for: ALKPHOS, AST, ALBUMIN, BILIDIR, BILITOT, ALT, PROT KHRIS Amylase: 03/24: 26 03/25: 22 03/26: 15 03/27: 327 03/28: 12 Micro: Bile duct cx (03/23): NGTD New Imaging: CTA Abdomen (03/26): 1. Normal appearance of celiac axis and its branches. No evidence of aneurysm or pseudoaneurysm. 2. Post Whipple procedure with expected postoperative changes. 3. Bilateral pleural effusions with LEFT basilar focal atelectasis Assessment / Plan: Linda Abel is a 74 y.o. female with PMH breast ca, HTN, pancreatic IPMN, 6Days Post-Op s/p robotic Whipple. Doing well this mornig. +flatus, +BM. Continue TPN today. 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 NEURO: Ok for tylenol, toradol, lidoderm patches. Oxy PRN CV: Hemodynamically normal. ASA restarted PULM: Encourage OOB/IS, home albuterol (duoneb) PRN GI/FEN: TPN Adult Regular diet RENAL: UOP adequate ENDO: Holding home Arimidex, ISS HEME: DVT ppx Lovenox ID: periop antibiotics, BD cultures NG MSK: OOB today PPX: PPI, IS, SCDs LINES: PIV DISPO: Floor status, Attempt Cardiopulmonary Resuscitation - Inpatient Signed: Raj Kang MD Surgical Oncology Service Team Pager #[phone] 03/29/20 9:57 AM Surgery Attending Addendum I have seen and examined Maricruz this afternoon. I have reviewed the laboratory data.?My exam is unchanged from Dr. Gallardo's note above. The assessment and plan were formulated in discussion withme and I agree with them as documented. She was in the bed sitting up and eating some of her soup for lunch when I saw her. She said when can I get rid of this white stuff-pointing to the TPN. She is having flatus and bowel movements. The surgical drain has a little bit of serous fluid so wediscussed a plan, in conjunction with her nurse Sarah, to go ahead and finish her lunch and then she can shower and after the shower Sarah will place a urostomy bag over the drain site-mostlyjust to collect some of the fluid that may be draining. I suspect if all goes well then tomorrow the TPN can come off and we can see how she does with her p.o. intake, monitor for post pancreatectomy diabetes-she is triggering some insulin use on the sliding scale but again she is still on TPN and now starting to take in p.o. The other major issue is her significant hypertension despite the hydralazine and labetalol. We added back the hydrochlorothiazide which is an oral medication she was on about a year ago for hypertension which has been discontinued. If this keeps up we will need to get a medicine consult to help usbetter manage her hypertension in the postoperative setting. She is having minimal pain so at leastthat is not a confounding issue with regard to the hypertension. Jennifer Carolina MD 03/29/2020 12:33 PM This note was created using [employer]) voice recognition software. * Raj Kang MD - 03/28/2020 12:50 PM EST KHRIS drain and NGT removed this morning, Patient tolerated well without issue. Nurse updated. Raj Kang MD * Raj Kang MD - 03/28/2020 10:02 AM EST Surgical Oncology Inpatient Progress Note Patient Name: Linda MERAZ; Age: 6 1945; 74 y.o. Room/Bed: [address] [place] [address] Today's Date: 03/28/20 ID: Linda Abel is a 74 y.o. female with PMH main duct IPMN, now 5 Days Post-Op s/p robotic whipple. Procedures this Hospitalization: 03/23: Robotic whipple OR Findings: No metastatic disease. The liver was healthy appearing. The resection was complicated by ergonomic issues given her small size and limited space within the abdomen- this made the resection and reconstruction take longer given instrument limited range of motion. Otherwise the case went well- minimalblood loss. The pancreatic duct measured 1.5 cm and the bile duct though was quite small - only 5-6mm. After completion of the resection and as we were preparing for the reconstruction it appeared that the common hepatic or proper hepatic artery had what looked like purple discoloration and some aneurysmal dilation extending up into a branch that looked like the right hepatic artery. Her completely replaced right hepatic artery though was nicely palpable. It was unclear whether this was just some tracking of blood along the arterial adventitia or some type of dissection? We spent quite a lotof time watching this and looking at the viability/color of the liver and it appeared completely unc hanged throughout the remainder of the case. Reconstruction was an intracoporal retromesenteric anddecide (Blumgart type) duct to mucosa pancreaticojejunostomy. The pancreatic duct was so massively dilated that we could not stent it. The bile duct anastomosis however was somewhat difficult and that it was so tiny and required an interrupted Blumgart-Debra type hepaticojejunostomy with 5-0 PDS. In testinal continuity was restored by bringing the proximal jejunal limb up as a retrocolic/transmesenteric side to side (Billroth II type) handsewn gastrojejunostomy anastomosis. Final inspection at the end of the case revealed excellent hemostasis and the liver really looked completely normal and there was no areas of demarcation. ?? 24 Hour Events/Subjective: -Ambulated x3 -passing flatus -clamp trial yesterday with 200cc out, decided to leave tube in overnight Hospital Course: POD 0 12: To OR for robotic WhippleROEL post-op. Note intra-operative concern for common hepaticartery discoloration (? Pseydoaneurysm); post-op LFTS obtained with mild elevation, trended POD 1 12: Convalesced on 2W. OOB to chair and walked x 1. Some paranoia/disorientation. PICC placed. POD 2 /: Disoriented overnight but redirectable, improved during day. Transferred to private room. POD 3 03/26: CTA for bump in LFTs in light of concern over LARA anatomy in OR; negative for aneurysm. Small Left effusion. Awaiting ROBF. POD 4 /: clamp trial with 200cc out, NGT remained in overnight, +flatus. In Hospital Issues: Active Hospital Problems Diagnosis ??? IPMN (intraductal papillary mucinous neoplasm) Resolved Hospital Problems No resolved problems to display. Objective Last value Range last 24hrs Temperature Temp: 36.4 ??C (97.5 ??F) Temp: [36.4 ??C (97.5 ??F)-36.7 ??C (98.1 ??F)] Heart Rate Heart Rate: 77 Heart Rate: [77] Blood Pressure BP: (!) 179/99 BP: (124-179)/(79-99) Respiratory Rate Resp: 18 Resp: [16-18] SpO2 SpO2: 93 % SpO2: [90 %-93 %] 2L NC Physical Exam Gen: NAD HEENT: PERRL, NGT in place, bilious drainage, SQ emphysema around face, neck, and chest resolved CV: RRR Pulm: breathing comfortably on NC, no respiratory distress Abd: non-distended, soft, appropriately TP, robotic sites dressed with dermabond, mild ecchymoses, c/d/i; KHRIS drain ss Ext: SCDs in place Skin: warm, dry Drains: KHRIS: 250cc (320cc) NGT: 1550cc (1600cc) but 375cc of that PO. 24 Hour I/O's: I/O last 3 completed shifts: In: 1737 [P.O.:630; I.V.:326; NG/GT:110] Out: 4815 [Urine:1850; Other:2965] Admit Weight: 54.89 kg Current Weight: Weight: 53.3 kg (117 lb 9.6 oz) Labs: Recent Labs 03/28/20 0145 03/27/20 0320 03/26/20 0145 WBC 6.9 7.6 9.4 HGB 11.3* 11.7 11.4* HCT 33.4* 35.5* 34.3* PLATELET 205 198 168 Recent Labs 03/28/20 0145 03/27/20 0320 03/26/20 0145 NA 139 139 139 K 3.7 3.8 3.4* CL 103 101 98 CO2 27 27 29 BUN 17 12 6* CREATININE 0.46* 0.49* 0.54* GLUCOSE -- 73 131 CALCIUM 8.4* 8.5 8.6 MAGNESIUM 0.87 0.87 0.82 PHOS 2.9 3.1 2.3* LFT's No results found for: ALKPHOS, AST, ALBUMIN, BILIDIR, BILITOT, ALT, PROT KHRIS Amylase: 03/24: 26 12: 22 12: 15 03/27: 327 03/28: 12 Micro: Bile duct cx (03/23): NGTD New Imaging: CTA Abdomen (03/26): 1. Normal appearance of celiac axis and its branches. No evidence of aneurysm or pseudoaneurysm. 2. Post Whipple procedure with expected postoperative changes. 3. Bilateral pleural effusions with LEFT basilar focal atelectasis Assessment / Plan: Linda Abel is a 74 y.o. female with PMH breast ca, HTN, pancreatic IPMN, 5Days Post-Op s/p robotic Whipple. Doing well this mornig. +flatus. KHRIS amylase back down. Continue TPN today. NGT clamp trial went well yesterday and she is ready for her NGT to be removed and advanced to clears. NEURO: Ok for tylenol, lidoderm patches CV: Hemodynamically normal. Holding home ASA, statin. PULM: Encourage OOB/IS, home albuterol (duoneb) PRN GI/FEN: Sips and Chips (Give Meds) TPN Adult, NGT; replete electrolytes PRN. RENAL: UOP adequate ENDO: Holding home Arimidex, ISS HEME: DVT ppx Lovenox ID: periop antibiotics, BD cultures NG MSK: OOB today PPX: PPI, IS, SCDs LINES: PIV DISPO: Floor status, Attempt Cardiopulmonary Resuscitation - Inpatient Signed: Raj Kang MD Surgical Oncology Service Team Pager #[phone] 03/28/20 10:02 AM * Olayinka Ojeda OTA - 03/27/2020 3:05 PM EST Occupational Therapy Treatment Note Treatment Number OT: 2 Patient Dx: Linda Abel is a 74 y.o. female admitted on 03/23/2020 with PMH main duct IPMN,??now Post-Op??s/p robotic whipple on 03/23. ?? Precautions/Special Considerations: Fall risk, PICC, NG tube clamped Interval History: -CTA yesterday for bump in LFTs in light of concern over LARA anatomy in OR; negative for aneurysm -Ambulated x3 -Denies Flatus/BM S: I think I'm doing pretty good, given everything. O: Patient seen for skilled OT treatment, and demonstrated the following: ?? Self-care: ?? Pt donned socks while supine in bed by bringing her feet up to her independently. ?? Pt donned robe while standing independently ?? Pt was educated on energy conservation, safety and pacing herself. Pt verbalized her understanding and was issued handout pertaining information. ?? Pt was able to perform toileting activity in her bathroom with distant supervision. Pt required assist to manage lines and IV pole. ?? Functional Mobility: ?? Supine to sitting EOB: SBA ?? Sit to stand: SBA with FWW ?? Ambulation: 300 ft with fWW and SBA ?? Cognition: ?? Behavior / Mood: alert and cooperative ?? Alert and oriented to: person, place, time and situation ?? Follows commands: multi step ?? Attention: WFL ?? Safety awareness: WFL ?? Vision:WFL ?? Endurance:Good ?? Vitals: VSS ?? Strength/ROM:Decreased but still WFL Pain: Mild discomfort in abdominal area Education: Pt/family/caregiver education ongoing regarding: Role of occupational therapy/rehabilitation, Assistive device/technique, ADL, Safety, Functional Mobility and Activity pacing/Energy conservation. Staff Communication: Patient status, treatment, and mobility recommendations discussed with nursing/other staff. ASSESSMENT: Pt was seen this afternoon for skilled OT. Session focussed on LB dressing, toileting and functional mobility. Pt was educated on energy conservation, safety and pacing herself for returning home. Pt demonstrated strong progress with her OT goals and functional mobility. Pt verbalized agood understanding of energy conservation and safety for returning home. Pt will benefit from ongoing therapeutic interventions to achieve pt's and therapy goals Anticipated Discharge Disposition: home with assist, home with home health Equipment Recommendations: None Daily schedule / Staff Recommendations: ?? Utilize upright chair position using bed features or transfer to recliner chair as appropriate with assistance as needed, ambulate as tolerated ?? Encourage participation in ADL's by providing set up A on tray table and physical assist only asneeded ?? Occupational Therapy Goals: To be achieved by 04/01/2020. Patient will stand at sink level with supervision x10 min for ADLs. Patient will dress lower body indep with adaptive equipment prn. Patient will ambulate to the bathroom with supervision, assistive device as needed.MET Patient will demonstrate energy conservation principals with all ADLs indep. MET Patient will complete all aspects of toileting with supervision, assistive device as needed. ?? Plan: OT: Therapy Frequency: 2-4 times/wk Planned OT interventions: Role of occupational therapy/rehabilitation, Transfers, Assistive device/technique, Adaptive equipment training, ADL, Positioning, Safety, Precautions/Protocol, Functional Mobility, Activity pacing/Energy conservation, Balance, Recommendations and Discharge planning. ?? Therapy Frequency: 2-4 times/wk Total Evaluation Minutes, Occupational Therapy: 30 Pager: [phone] PEPITO Kirk Occupational Therapy Rehabilitation Department * Davian Carolina MD - 03/27/2020 12:38 PM EST Surgical Oncology Inpatient Progress Note Patient Name: Linda MERAZ; Age: 6 1945; 74 y.o. Room/Bed: [address] [place], [place] [address] Today's Date: 03/27/20 ID: Linda Abel is a 74 y.o. female with PMH main duct IPMN, now 4 Days Post-Op s/p robotic whipple. Procedures this Hospitalization: 03/23: Robotic whipple OR Findings: No metastatic disease. The liver was healthy appearing. The resection was complicated by ergonomic issues given her small size and limited space within the abdomen- this made the resection and reconstruction take longer given instrument limited range of motion. Otherwise the case went well- minimalblood loss. The pancreatic duct measured 1.5 cm and the bile duct though was quite small - only 5-6mm. After completion of the resection and as we were preparing for the reconstruction it appeared that the common hepatic or proper hepatic artery had what looked like purple discoloration and some aneurysmal dilation extending up into a branch that looked like the right hepatic artery. Her completely replaced right hepatic artery though was nicely palpable. It was unclear whether this was just some tracking of blood along the arterial adventitia or some type of dissection? We spent quite a lotof time watching this and looking at the viability/color of the liver and it appeared completely unc hanged throughout the remainder of the case. Reconstruction was an intracoporal retromesenteric anddecide (Blumgart type) duct to mucosa pancreaticojejunostomy. The pancreatic duct was so massively dilated that we could not stent it. The bile duct anastomosis however was somewhat difficult and that it was so tiny and required an interrupted Blumgart-Debra type hepaticojejunostomy with 5-0 PDS. In testinal continuity was restored by bringing the proximal jejunal limb up as a retrocolic/transmesenteric side to side (Billroth II type) handsewn gastrojejunostomy anastomosis. Final inspection at the end of the case revealed excellent hemostasis and the liver really looked completely normal and there was no areas of demarcation. ?? 24 Hour Events/Subjective: -CTA yesterday for bump in LFTs in light of concern over LARA anatomy in OR; negative for aneurysm -Ambulated x3 -Denies Flatus/BM Hospital Course: POD 0 12: To OR for robotic Whipple ROEL post-op. Note intra-operative concern for common hepaticartery discoloration (? Pseydoaneurysm); post-op LFTS obtained with mild elevation, trended POD 1 12: Convalesced on 2W. OOB to chair and walked x 1. Some paranoia/disorientation. PICC placed. POD 2 12/: Disoriented overnight but redirectable, improved during day. Transferred to private room. POD 3 1210: CTA for bump in LFTs in light of concern over LARA anatomy in OR; negative for aneurysm. Small Left effusion. Awaiting ROBF. In Hospital Issues: Active Hospital Problems Diagnosis ??? IPMN (intraductal papillary mucinous neoplasm) Resolved Hospital Problems No resolved problems to display. Objective Last value Range last 24hrs Temperature Temp: 36.6 ??C (97.9 ??F) Temp: [36.3 ??C (97.3 ??F)-37.1 ??C (98.8 ??F)] Heart Rate Heart Rate: 90 Heart Rate: [90-110] Blood Pressure BP: 133/81 BP: (133-163)/(71-108) Respiratory Rate Resp: 18 Resp: [14-18] SpO2 SpO2: 93 % SpO2: [89 %-97 %] 2L NC Physical Exam Gen: NAD HEENT: PERRL, NGT in place, bilious drainage, SQ emphysema around face, neck, and chest resolved CV: RRR Pulm: breathing comfortably on NC, no respiratory distress Abd: non-distended, soft, appropriately TP, robotic sites dressed with dermabond, mild ecchymoses, c/d/i; KHRIS drain ss Ext: SCDs in place Skin: warm, dry Drains: KHRIS: 300cc ss NGT: 1.2L bilious 24 Hour I/O's: I/O last 3 completed shifts: In: 843.6 [P.O.:405; I.V.:328.6; NG/GT:110] Out: 4720 [Urine:2300; Other:2420] Admit Weight: 54.89 kg Current Weight: Weight: 54.9 kg (121 lb) Labs: Recent Labs 03/27/2031903/26/2014403/25/20 015 WBC 7.6 9.4 13.9* HGB 11.7 11.4* 11.2* HCT 35.5* 34.3* 33.5* PLATELET 198 168 203 Recent Labs 03/27/2031903/26/2014403/25/2015403/24/20 1740 NA 139 139 138 -- K 3.8 3.4* 3.9 4.1 CL 101 98 101 -- CO2 27 29 29 -- BUN 12 6* 10 -- CREATININE 0.49* 0.54* 0.48* -- GLUCOSE 73 131 116 -- CALCIUM 8.5 8.6 8.2* -- MAGNESIUM 0.87 0.82 0.78 -- PHOS 3.1 2.3* 1.6* -- LFT's Lab Results Component Value Date Alk Phos 58 03/27/2020 AST 77 (H) 03/27/2020 Albumin 3.2 03/27/2020 Total Bilirubin 0.4 03/27/2020 ALT 160 (H) 03/27/2020 Total Protein 5.4 (L) 03/27/2020 KHRIS Amylase: 8: 26 129: 22 12: 15 12: 327 Micro: Bile duct cx (03/23): NGTD New Imaging: CTA Abdomen (03/26): 1. Normal appearance of celiac axis and its branches. No evidence of aneurysm or pseudoaneurysm. 2. Post Whipple procedure with expected postoperative changes. 3. Bilateral pleural effusions with LEFT basilar focal atelectasis Assessment / Plan: Linda Abel is a 74 y.o. female with PMH breast ca, HTN, pancreatic IPMN, 4Days Post-Op s/p robotic Whipple. Doing well this mornig. Still awaiting ROBF. KHRIS amylase slightly elevated this AM; will continue totrend. Will initiate TPN today as we are POD#4 without ROBF and she already has a PICC. NEURO: Ok for tylenol, lidoderm patches CV: Hemodynamically normal. Holding home ASA, statin. PULM: Encourage OOB/IS, home albuterol (duoneb) PRN GI/FEN: Sips and Chips (Give Meds) TPN Adult, NGT; replete electrolytes PRN. RENAL: UOP adequate ENDO: Holding home Arimidex HEME: DVT ppx Lovenox ID: periop antibiotics, BD cultures NG MSK: OOB today PPX: PPI, IS, SCDs LINES: PIV DISPO: Floor status, Attempt Cardiopulmonary Resuscitation - Inpatient Signed: ALICE YE MD Surgical Oncology Service Team Pager #[phone] 03/27/20 12:38 PM Surgery Attending Addendum I have seen and examined Maricruz around 10 am on Monday. I have reviewed the laboratory data.?My exam is unchanged from Dr. Ye's note above. The assessment and plan were formulated in discussion with me and I agree with them as documented. I clamped her NG tube and we discussed the plan for 4 hour 'clamp-trial'. Still awaiting flatus butabdomen soft, ND with some bowel sounds on exam. 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 Discussed the rationale for starting TPNwhile we await return of bowel function given prolonged ileus and likely gastroparesis s/p whipple. Jennifer Carolina MD 03/27/2020 * Josue Lora RD - 03/27/2020 12:31 PM EST Nutrition Progress Note Patient now s/p robotic whipple now with ileus. Linda Abel is a 74 y.o. female Reason for intervention: TPN Comments: Initial TPN to provide full nutrition of 1390 calories and 110 g protein (2 g/kg) in 1800ml. I was able to discuss plan with provider [phone]. Nutrition Support: TPN Medication Recent History (Show up to 3 orders; newest on the left.) Start date and time 03/27/2020 1800 TPN Adult [[id number]] Order Status Active Additives trace elements Zn-Cu-Mn-Se 1 mL Vit P2-O3-D8-B5-B6 (B Complex) 1 mL zinc sulfate 10 mg Pedi multivitamin 1 mL Electrolytes sodium phosphate 36 mmol potassium chloride 80 mEq sodium chloride 90 mEq calcium gluconate 8 mEq magnesium sulfate 16 mEq Dextrose dextrose 70% 118 g Amino Acids amino acid 15% no.5 (Clinisol) 110 g QS Base sterile water 606.46 mL Lipid fat emulsion 30 % 55 g Energy Contribution Proteins 440 kcal Dextrose 401.27 kcal Lipids 549 kcal Total 1,390.27 kcal Electrolyte Ion Calculated Amount Sodium 138 mEq Potassium 80 mEq Calcium 8 mEq Magnesium 16 mEq Aluminum -- Phosphate 38.75 mmol Chloride 170 mEq Acetate 93.13 mEq Other Total Amino Acid 110 g Total Amino Acid/kg 2 g/kg Glucose Infusion Rate 1.49 mg/kg/min Osmolarity (Estimated) 1,228.27 Volume 1,800 mL Rate 75 mL/hr Dosing Weight 54.9 kg Infusion Site Central Lab Results Component Value Date NA 139 03/27/2020 K 3.8 03/27/2020 CL 101 03/27/2020 CO2 27 03/27/2020 BUN 12 03/27/2020 CREATININE 0.49 (L) 03/27/2020 GFRAA 96 01/09/2020 ESTGFR 97 03/27/2020 MAGNESIUM 0.87 03/27/2020 CALCIUM 8.5 03/27/2020 PHOS 3.1 03/27/2020 AST 77 (H) 03/27/2020 ALT 160 (H) 03/27/2020 ALKPHOS 58 03/27/2020 BILITOT 0.4 03/27/2020 Lab Results Component Value Date POCGLU 92 03/27/2020 POCGLU 71 03/27/2020 POCGLU 74 03/27/2020 POCGLU 73 03/27/2020 POCGLU 93 03/27/2020 POCGLU 96 03/26/2020 POCGLU 74 03/26/2020 POCGLU 87 03/26/2020 Skin Status: Shift Pressure Injury Prevention Occiput: No Injury Thoracic Spine: No Injury Sacral: No Injury Ischial - left: No Injury Ischial - right: No Injury Heel - left: No Injury Heel - right: No Injury Elbow - left: No Injury Elbow - right: No Injury Device Sites: NGT, O2 sat monitor, oxygen tubing, SCD's/venodynes, IV sites Other Sites: KHRIS drain Relevant medications: Last Bowel Movement: 03/22/20 Intake/Output Summary (Last 24 hours) at 03/27/2020 1231 Last data filed at 03/27/2020 1128 Gross per 24 hour Intake 572 ml Output 2595 ml Net -2023 ml Admit Weight: 54.89 kg Estimated body mass index is 22.13 kg/m?? as calculated from the following: Height as of this encounter: 157.5 cm (5' 2). Weight as of this encounter: 54.9 kg (121 lb). [place] Body Weight: 50 kg Usual Body Weight: 55 kg Wt Readings from Last 10 Encounters: 03/23/20 54.9 kg (121 lb) 01/28/20 55.8 kg (123 lb) 01/09/20 54.7 kg (120 lb 9.6 oz) 12/20/19 52.2 kg (115 lb) 12/18/19 54.7 kg (120 lb 9.6 oz) 12/11/19 52.2 kg (115 lb) 12/09/19 55.3 kg (122 lb) 11/25/19 55 kg (121 lb 3.2 oz) 11/15/19 54.4 kg (120 lb) Assessment: Estimated needs: Calories: 1375 (25 kcal/kg) Protein: 110 grams (2g/kg) Nutrition Focused Physical Exam (NFPE): Not performed Nutrition intake and intake history/Interview: NPO/clearsx 6 days. No recent weight loss. Protein-calorie Malnutrition: Not identified (CHRIS Fierro J Parenteral Enteral Nutr. 2012 August; 36(3): 273-83) Nutrition to continue to follow up while inpatient. JOSUE LORA RD Pager #[phone] * Marisa Lance - 03/27/2020 10:20 AM EST Nutrition NPO Note Linda Abel is a 74 y.o. female Patient is has been on sips and chips diet only for 5 days, increasing risk for malnutrition. If clinically unable to advance oral diet consider consult to Nutrition Services to evaluate for potential nutrition support. Visualized patient for overt cachectic appearance: no Active Orders Diet Sips and Chips (Give Meds) Frequency: Effective Now Number of Occurrences: Until Specified Admit Weight: 54.89 kg Estimated body mass index is 22.13 kg/m?? as calculated from the following: Height as of this encounter: 157.5 cm (5' 2). Weight as of this encounter: 54.9 kg (121 lb). Wt Readings from Last 5 Encounters: 03/23/20 54.9 kg (121 lb) 01/28/20 55.8 kg (123 lb) 01/09/20 54.7 kg (120 lb 9.6 oz) 12/20/19 52.2 kg (115 lb) 12/18/19 54.7 kg (120 lb 9.6 oz) Weight loss: not clinically significant, of note pt's weight has not been updated since 03/23/20, please obtain updated weight. Marisa Lance Pager: [phone] * Alesha Casillas RN - 03/26/2020 12:43 PM EST OFFICE OF CARE MANAGEMENT Social Work Professor Follow-up Note Alesha Casillas RN reviewed record and discussed patient with Care Team. Patient plan of care discussed in multidisciplinary rounds and assessment for continuing care and discharge needs. Diagnosis: IPMN (intraductal papillary mucinous neoplasm) LOS Hospital: 3 days INSURANCE: Payor: MEDICARE / Plan: MEDICARE PART A & B / Product Type: *No Product type* / SECONDARY INSURANCE: [facility] [place] DECISION MAKER: Attempt Cardiopulmonary Resuscitation - Inpatient <no information> Patient continues to require hospitalization. Per team, patient requires inpatient status r/t needing a CTA today. LFT increasing. Discharge date planned for 03/30 if medically ready. Current Referral in place: [facility] for RN Transportation: Son will drive patient home via private vehicle when medically ready. Support: Son Social Work Professor to follow with team and family to assist with discharge needs when patient ready for discharge. Alesha Casillas RN Case Management [facility] [phone] * Paty Kenney MD - 03/26/2020 10:00 AM EST Surgical Oncology Inpatient Progress Note Patient Name: Linda MERAZ; Age: 6 1945; 74 y.o. Room/Bed: [address] [place] [address] Today's Date: 03/26/20 ID: Linda Abel is a 74 y.o. female with PMH main duct IPMN, now 3 Days Post-Op s/p robotic whipple. Procedures this Hospitalization: 03/23: Robotic whipple OR Findings: No metastatic disease. The liver was healthy appearing. The resection was complicated by ergonomic issues given her small size and limited space within the abdomen- this made the resection and reconstruction take longer given instrument limited range of motion. Otherwise the case went well- minimalblood loss. The pancreatic duct measured 1.5 cm and the bile duct though was quite small - only 5-6mm. After completion of the resection and as we were preparing for the reconstruction it appeared that the common hepatic or proper hepatic artery had what looked like purple discoloration and some aneurysmal dilation extending up into a branch that looked like the right hepatic artery. Her completely replaced right hepatic artery though was nicely palpable. It was unclear whether this was just some tracking of blood along the arterial adventitia or some type of dissection? We spent quite a lotof time watching this and looking at the viability/color of the liver and it appeared completely unc hanged throughout the remainder of the case. Reconstruction was an intracoporal retromesenteric anddecide (Blumgart type) duct to mucosa pancreaticojejunostomy. The pancreatic duct was so massively dilated that we could not stent it. The bile duct anastomosis however was somewhat difficult and that it was so tiny and required an interrupted Blumgart-Debra type hepaticojejunostomy with 5-0 PDS. Intestinal continuity was restored by bringing the proximal jejunal limb up as a retrocolic/transmesenteric side to side (Billroth II type) handsewn gastrojejunostomy anastomosis. Final inspection at the end of the case revealed excellent hemostasis and the liver really looked completely normal and there was no areas of demarcation. ?? 24 Hour Events/Subjective: - Much more oriented over past 24 hours - Tolerating sips/chips but still no passage of flatus - Good response to lasix, with 3L UOP for past 24 hours - LFTs continue to increase - Calderón removed, voiding adequate volumes spontaneously. U/A no e/o infection. - Worked well with PT/OT, recommending home with assist and home health. Hospital Course: POD 0 12: To OR for robotic WhROEL martinez post-op. Note intra-operative concern for common hepaticartery discoloration (? Pseydoaneurysm); post-op LFTS obtained with mild elevation, trended POD 1 03/24: Convalesced on 2W. OOB to chair and walked x 1. Some paranoia/disorientation. PICC placed. POD 2 03/25: Disoriented overnight but redirectable, improved during day. Transferred to Floor status. In Hospital Issues: Active Hospital Problems Diagnosis ??? IPMN (intraductal papillary mucinous neoplasm) Resolved Hospital Problems No resolved problems to display. Objective Last value Range last 24hrs Temperature Temp: 37 ??C (98.6 ??F) Temp: [37 ??C (98.6 ??F)-37.7 ??C (99.9 ??F)] Heart Rate Heart Rate: (!) 102 Heart Rate: [95-102] Blood Pressure BP: 138/78 BP: (129-197)/(69-88) Respiratory Rate Resp: 18 Resp: [16-18] SpO2 SpO2: 94 % SpO2: [93 %-98 %] 2L NC Physical Exam Gen: NAD HEENT: PERRL, NGT in place, thin bilious drainage, SQ emphysema around face, neck, and chest resolved CV: RRR Pulm: breathing comfortably on NC, no respiratory distress Abd: non-distended, soft, appropriately TP, robotic sites dressed with dermabond, mild ecchymoses, c/d/i; KHRIS drain ss : Calderón to gravity draining clear yellow Ext: SCDs in place, no visible edema Skin: warm, dry Drains: KHRIS: 235mL / 24h, SS NGT: 800mL / 24h, bilious Calderón 24 Hour I/O's: I/O last 3 completed shifts: In: 3667 [P.O.:695; I.V.:2762; NG/GT:210] Out: 7335 [Urine:5750; Other:1585] Admit Weight: 54.89 kg Current Weight: Weight: 54.9 kg (121 lb) Labs: Recent Labs 03/26/20 0145 03/25/20 0155 03/24/20 0803/23/20 1830 WBC 9.4 13.9* 16.3* 23.4* HGB 11.4* 11.2* 11.7 12.2 HCT 34.3* 33.5* 37.0 37.9 PLATELET 168 203 214 275 Recent Labs 03/26/20 01403/25/20 01503/24/20 1740 03/24/20 0803/23/20 1830 NA 139 138 -- 140 141 K 3.4* 3.9 4.1 Not Perf 4.4 CL 98 101 -- 105 106 CO2 29 29 -- 26 24 BUN 6* 10 -- 16 16 CREATININE 0.54* 0.48* -- 0.77 0.88 GLUCOSE 131 116 -- -- 217* CALCIUM 8.6 8.2* -- 8.2* 8.1* MAGNESIUM 0.82 0.78 -- 1.07 0.69 PHOS 2.3* 1.6* -- 4.6* 5.1* LFT's Lab Results Component Value Date Alk Phos 60 03/26/2020 AST 166 (H) 03/26/2020 Albumin 3.3 03/26/2020 Total Bilirubin 0.6 03/26/2020 ALT 240 (H) 03/26/2020 Total Protein 5.5 (L) 03/26/2020 KHRIS Amylase: 03/24: 26 129: 22 1210: 15 Micro: Bile duct cx (03/23): NGTD New Imaging: N/a Assessment / Plan: Linda Abel is a 74 y.o. female with PMH breast ca, HTN, pancreatic IPMN, 3Days Post-Op s/p robotic Whipple. Doing well this mornig. Still awaiting ROBF. KHRIS amylase remains reassuringly low. Given increased LFTs today and concerning appearance of common hepatic artery in OR, will obtain CTA today. NEURO: Ok for tylenol, lidoderm patches CV: Hemodynamically normal. Holding home ASA, statin. Monitor tachycardia. PULM: Encourage OOB/IS, home albuterol (duoneb) PRN GI/FEN: Sips and Chips (Give Meds), NGT; replete electrolytes PRN. LR @100 RENAL: UOP adequate after Calderón removal. ENDO: Holding home Arimidex HEME: DVT ppx Lovenox ID: periop antibiotics, BD cultures NG MSK: OOB today PPX: PPI, IS, SCDs LINES: PIV DISPO: Floor status, Attempt Cardiopulmonary Resuscitation - Inpatient Signed: Paty Kenney MD Surgical Oncology Service Team Pager #[phone] 03/26/20 10:00 AM * Maria Esther Blancas RN - 03/25/2020 5:14 PM EST OUTCOME EVALUATION NOTE: OUTCOME SUMMARY: Patient received. A&O throughout shift. Patient continues to have elevated BP throughout shift.Up to 190s systolic BP, JESUS ALBERTO Jordan and MD Ye notified. Meds administered per orders, will continue to monitor. Patient experiencing more trust with staff, then previous shifts. Anxiety has decreased throughout the day. Ambulated X3 in the hallway. Pain well controlled with FENCE GATE ASSEMBLER. Not passing gas, no BM, adequate urine output. Calderón removed, passed voiding trial. NGT remains to suction. Patient was able to move to a private room this evening. Comfort and safety measures maintained, call blanco within reach bed/ chair alarm on. PLAN MOVING FORWARD: Continue to monitor all order parameters Manage pain Monitor BP Encourage ambulation Maintain NGT suction INDIVIDUALIZED FALL PREVENTION INTERVENTIONS: High fall risk Patient-specific fall risk factors per assessment: [current deficits]: 74 female s/p robotic whipple current risk factors include: PICC, FENCE GATE ASSEMBLER, acute pain, recent surgery, tubes/drains, and generalizedweakness. Assistance [level of assistance required for transfers and ambulation]: 1 assist with walker Supervision [direct monitoring required during toileting and ADLs]: Eyes on Surveillance [continuous indirect monitoring]: Bed/Chair alarm, yellow fall band, NKE at bedside, purposeful rounding, environmental modification (floor free of clutter, tubing secured), bed in low position, lighting adjusted for task/safety, nonskid slippers when out of bed, wheels locked, call light in reach, upper side-rails raised X2, ID bands on. Patient-specific fall prevention interventions for sensory deficits provided, if applicable: [X] No CPG GOAL OUTCOME EVALUATION: * Patricia Jordan, PT - 03/25/2020 2:30 PM EST Physical Therapy Note Treatment Number PT: (P) 2 Patient profile: Linda Abel??is a 74 y.o.??female??with PMH main duct IPMN,??s/p robotic whipple on 03/23 Interval History: decreased eye swelling and decreased crepitus, mental status cleared, ambulating with nursing staff, Social History: Social History: Pt lives alone in a multi level home with 5 steps to enter. 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 Mobility and Positioning Recommendations: ?? Pt. to utilize cg/min asst of 1 for transfers with nursing. Ambulate with FWW ?? Please encourage up to chair as able. ?? Pt encouraged to ambulate frequently with staff, getting into the bathroom for toileting and walking out in the hammer >/= 3 times daily as able. ?? Subjective: ???I walked three times, can I walk again later Doing much better today Objective: Pt seen for mobility today. ?? Pain: comfortable at rest, minimal use of FENCE GATE ASSEMBLER, ?? Vital Signs: SpO2: 95% on 2L, 87% on RA, put back on 1L HR: 85 Mental Status: awake, oriented, motivated, MS cleared overnight ?? Vision: WFL, wears reading glasses ?? Skin: incisions, decreased facial edema, h/x R mastectomy and L axillary lymph node dissection, ?? Musculoskeletal: ROM: decreased trunk flexion, extremities WFL Strength: WFL Sensation: denies sensory deficits, changes, LT intact in LEs ?? Bed Mobility: Supine to Sit: already up in the chair Sit to Supine: supervision, cga to raise LEs into bed, vcs to log roll?? Transfers: Sit to Stand:cga asst to FWW Stand to Sit: vcs to reach back, good eccentric control, cues to exhale Bed to Chair: assist of 1 to manage lines Ther ex: ankle pumps, heel slides, quad sets, seated marches, deep breathing, IS ?? Gait: Distance: ~300ft Device used: FWW Level of assist: SBA and IV Pole management Gait mechanics: steady gait, speed limited by lines?? Stairs: NT ?? Balance: good balance sitting EOB, no lightheadedness, fair dynamic balance with gait w/FWW ?? Education: patient has been educated on Bed mobility, Transfers, Assistive device/technique, Exercise, Positioning, Safety , Precautions/protocol, Gait , Role of therapy, Balance and Discharge planning and needs reinforcement. to ensure understanding Patient status, treatment, and mobility recommendations discussed with nursing. ?? Pt left supine in bed with chair alarm on, call blanco within reach, all needs mets. RN updated. ?? Patient status, treatment, and mobility recommendations discussed with nursing. Assessment: Linda Abel was seen today for physical therapy treatment session for continuationof POC. Pt's mental status cleared overnight, facial edema markedly reduced. Pt mobilizing and ambulating with FWW with steady gait. Pt has minimal pain and is making good progress. Anticipate pt will wean off the walker and be able to negotiate a full flight of stairs when she is medically ready for discharge. . Pt will benefit from ongoing therapeutic interventions to achieve therapy goals. Therapy Plan: 1-2 more visits as outlined in initial evaluation. Patient / family agrees with plan as stated. Discharge Recommendations: Home with support of her son. AMINTA RN as needed. Equipment needs: No equipment necessary but pt has several friends who have offered equipment loansif needed Physical Therapy Goals: To be achieved by 03/31: ?? 1. Pt. to demonstrate knowledge of safety limitations and precautions and will appropriately request assistance for functional activities and to mobilize. 2. Pt. to demonstrate understanding of appropriate warm up exercises. 3. Pt. to perform bed mobility with modified independence. 4. Pt. to perform sit to stand transfers with supervision . 5. Pt. to ambulate 150 feet with supervision 6. Pt. to ambulate up/down FOS if needed for home discharge. Family or caregiver to demonstrate understanding of therapeutic interventions to support the care of the patient. Time IN / OUT: 2:15-2:30 Total Evaluation Minutes, Physical Therapy: (P) 15 TEF PATRICIA JORDAN, PT Pager: [phone] Physical Therapy Inpatient Rehabilitation Department * Meera Salinas, OT - 03/25/2020 1:58 PM ESTSummary: Patient planning to return home with assist from son, home health follow up Occupational Therapy Evaluation Patient profile: Linda Abel is a 74 y.o. female admitted on 03/23/2020 with [facility] main duct IPMN,??now Post-Op??s/p robotic whipple on 03/23. Past Medical History: Diagnosis Date ??? Basal cell carcinoma 2009 [facility]-back ??? Breast cancer Past Surgical History: Procedure Laterality Date ??? CREATED BY INTERFACE BREAST BIOPSY / RT/MULTIPLE Procedure Date: 01/23/2001 ??? CREATED BY INTERFACE COLONOSCOPY (ENDO) Procedure Date: 12/24/2003 ??? CREATED BY INTERFACE Entered not Verified Procedure Date: 01/22/2010 ??? CREATED BY INTERFACE MODIFIED RADICAL MASTECTOMY / RT Procedure Date: 02/06/2001 ??? MAMMO STEREOTACTIC BIOPSY LEFT N/A 12/05/2019 Mammo Stereotactic Biopsy Left 12/05/2019 [facility] RAD MAMMOGRAPHY ??? MASTECTOMY Right with RT ??? PRO BX/REMV, LYMPH NODE, DEEP AXILL Left 12/20/2019 BIOPSY OR EXCISION OF LYMPH NODE(S), OPEN, DEEP AXILLARY NODE(S) (WRVU 6.43) performed by Susan Rivera MD at [facility] ??? PRO COLONOSCOPY, DIAGNOSTIC 01/07/2014 COLONOSCOPY, DIAGNOSTIC performed by Izzy Johnson MD at [facility] ENDOSCOPY ??? PRO ENDOSCOPIC US EXAM, ESOPH N/A 11/15/2019 UPPER EUS- ENDOSCOPIC ULTRASOUND performed by Ralf Urrutia MD at [facility] END[facility]COPY ??? PRO INTRAOP SENTINEL LYMPH ID W/DYE INJECTION Left 12/20/2019 INTRAOPERATIVE ID (MAPPING) SENTINEL LYMPH NODE,INCLUDES INJECTION (WRVU 2.5) performed by Susan Rivera MD at [facility] ??? PRO MASTECTOMY, SIMPLE, COMPLETE Left 12/20/2019 MASTECTOMY, SIMPLE, COMPLETE (WRVU 15.85) performed by Susan Rivera MD at [facility] Social History: Patient lives Alone, son planning to come stay with patient at discharge Home Setup: Multi level home with 5 ANNALISE. Has a tub shower on the main level and walk in shower on the second level. Bedroom is on second level but can stay on first level with all needs met. Baseline ADL/Mobility: At baseline patient reports she was independent with all ADLs and IADLs. Walks 3-5 miles per day. 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 Precautions/Special Considerations: Fall risk, PICC, NG tube clamped Subjective: I have what they call essential tremors Objective: Seen today for OT evaluation. Cognitive Status/Behavior: ?? Behavior / Mood: alert and cooperative ?? Alert and oriented to: person, place, time and situation ?? Follows commands: multi step and 100% of the time ?? Attention: WFL ?? Safety awareness: WFL and fully aware of deficits Vision & Perception: ?? WNL/WFL ?? corrective lenses for reading Communication: WFL Range of motion, strength, coordination: Hand dominance: left Bilateral UEs are within functional limitations, guarded hunched posture to protect abdomen LE limitations: WFL, tremor noted in LLE Sensation: Patient declines numbness/tingling Activities of Daily Living: Self-feeding: Independent Grooming: Demonstrates the ability to stand at sink but may have difficulty with managing hair due to abdominal incision pulling with reaching Dressing: Dependent for lower body dressing Bathing: Anticipate patient would require mod-maxA Toileting: Transfer: Anticipate CGA due to demonstrated sit<>stand transfers Hygiene: Anticipate modA due to tubes and lines Functional Mobility: Supine to sit: Patient in chair upon OT arrival Sit to stand: CGA from bedside chair to FWW Ambulation: Close SBA with FWW, patient moving slowly and deliberately Stand to sit: SBA with cues for hand placement Sit to supine: SBA with cues for techniques Balance: Sitting balance: Good Standing balance: Good with FWW Vitals: At Rest With Activity SpO2 96% on 2L 94% on RA 86% on RA 92% on 2L Blood Pressure 170/88 Pain: Abdominal pain 0/10 rest, 5/10 with activity, 1/10 post activity Skin: Not formally assessed Education: patient have been educated on Role of occupational therapy/rehabilitation, Transfers, Assistive device/technique, ADL, Breathing exercises, Positioning, Safety, Precautions/Protocol, Functional Mobility, Balance, Recommendations and Discharge planning and verbalizes understanding. Patient status, treatment, and mobility recommendations discussed with nursing. Patient is in bed with call light in reach and alarm on. Nursing aware of patient's location and status. Assessment: Pt has been seen for occupational therapy evaluation. Linda Abel presents with the following performance skill deficits and client factors: increased pain, decreased activity tolerance, decreased flexibility/ROM, decreased strength, decreased sitting/standing balance, precautions/bracing and compromised mobility status. These performance deficits have led to activity limitationsand participation restrictions in the following areas of occupation: dressing, bathing, grooming, toileting, transfers/mobility, home management, leisure, driving and community mobility. Patient presents 59.67% limited in ADL performance per the [facility]. Patient is well below her baseline level of function and not safe to discharge home currently. Anticipate as patient's pain is controlled, she will progress quickly and return home with son's assistance. Recommend home health follow up. Ptwould benefit from further inpatient OT interventions to address performance deficits and maximize participation and independence with occupations of daily living. Equipment needs at discharge: None Anticipated Discharge Disposition: home with assist, home with home health Other Recommendations: ?? Utilize upright chair position using bed features or transfer to recliner chair as appropriate with assistance as needed, ambulate as tolerated ?? Encourage participation in ADL's by providing set up A on tray table and physical assist only asneeded Other Recommendations: No other consults recommended at this time Goals: To be achieved by 04/01/2020. Patient will stand at sink level with supervision x10 min for ADLs. Patient will dress lower body indep with adaptive equipment prn. Patient will ambulate to the bathroom with supervision, assistive device as needed. Patient will demonstrate energy conservation principals with all ADLs indep. Patient will complete all aspects of toileting with supervision, assistive device as needed. Plan: OT: Therapy Frequency: 2-4 times/wk Planned OT interventions: Role of occupational therapy/rehabilitation, Transfers, Assistive device/technique, Adaptive equipment training, ADL, Positioning, Safety, Precautions/Protocol, Functional Mobility, Activity pacing/Energy conservation, Balance, Recommendations and Discharge planning. Total Evaluation Minutes, Occupational Therapy: 38(Mod Complexity Eval ) 2017 OT Evaluation Code Rationale: ?? Diagnosis & Pertinent Co-Morbidities affecting Plan of Care: see PMHx ?? Occupational Profile & Client History: Brief Expanded Extensive x ?? Assessment of Occupational Performance: 1-3 performance deficits 3-5 performance deficits 5 + performance deficits x ?? Clinical Decision Making: Low Moderate High x Clinical decision making of moderate complexity using standardized patient assessment instrument and measurable assessment of functional outcome. Pager: [phone] Meera Salinas OT 03/25/2020 Occupational Therapy Rehabilitation Department * Alice Ye - 03/25/2020 1:33 PM EST Surgical Oncology Inpatient Progress Note Patient Name: Linda MERAZ; Age: 6 1945; 74 y.o. Room/Bed: [address] [place] [address] Today's Date: 03/25/20 ID: Linda Abel is a 74 y.o. female with PMH main duct IPMN, now 2 Days Post-Op s/p robotic whipple. Procedures this Hospitalization: 03/23: Robotic whipple OR Findings: No metastatic disease. The liver was healthy appearing. The resection was complicated by ergonomic issues given her small size and limited space within the abdomen- this made the resection and reconstruction take longer given instrument limited range of motion. Otherwise the case went well- minimalblood loss. The pancreatic duct measured 1.5 cm and the bile duct though was quite small - only 5-6mm. After completion of the resection and as we were preparing for the reconstruction it appeared that the common hepatic or proper hepatic artery had what looked like purple discoloration and some aneurysmal dilation extending up into a branch that looked like the right hepatic artery. Her completely replaced right hepatic artery though was nicely palpable. It was unclear whether this was just some tracking of blood along the arterial adventitia or some type of dissection? We spent quite a lotof time watching this and looking at the viability/color of the liver and it appeared completely unc hanged throughout the remainder of the case. Reconstruction was an intracoporal retromesenteric anddecide (Blumgart type) duct to mucosa pancreaticojejunostomy. The pancreatic duct was so massively dilated that we could not stent it. The bile duct anastomosis however was somewhat difficult and that it was so tiny and required an interrupted Blumgart-Debra type hepaticojejunostomy with 5-0 PDS. Intestinal continuity was restored by bringing the proximal jejunal limb up as a retrocolic/transmesenteric side to side (Billroth II type) handsewn gastrojejunostomy anastomosis. Final inspection at the end of the case revealed excellent hemostasis and the liver really looked completely normal and there was no areas of demarcation. ?? 24 Hour Events/Subjective: -Paranoia yesterday and overnight, accompanied by disorientation but redirectable -tachycardic to 110s overnight Hospital Course: POD 0 12: to OR for robotic Whipple, ROEL post-op. Note intra-operative concern for common hepaticartery discoloration (? Pseydoaneurysm); post-op LFTS obtained with mild elevation, trended POD 1 03/24: Convalesced on 2W. OOB to chair and walked x 1. Some paranoia/disorientation. In Hospital Issues: Active Hospital Problems Diagnosis ??? IPMN (intraductal papillary mucinous neoplasm) Resolved Hospital Problems No resolved problems to display. Objective Last value Range last 24hrs Temperature Temp: 37 ??C (98.6 ??F) Temp: [36.8 ??C (98.3 ??F)-37.5 ??C (99.5 ??F)] Heart Rate Heart Rate: 95 Heart Rate: [95-115] Blood Pressure BP: 182/86(JESUS ALBERTO Jordan notified) BP: (141-190)/(86-107) Respiratory Rate Resp: 18 Resp: [16-18] SpO2 SpO2: 98 % SpO2: [92 %-99 %] 2L NC Physical Exam Gen: NAD HEENT: NC/AT, PERRL, NGT in place, thin bilious drainage, visible/palpable SQ emphysema including around eyelids, face, chest - all improved CV : mildly tachycardic Pulm: breathing comfortably, no respiratory distress Abd: non-distended, soft, appropriately TP, robotic sites dressed with dermabond, mild ecchymoses, c/d/i; KHRIS drain ss : Calderón to gravity draining cyi Ext: SCDs in place. Skin: warm, dry Drains: KHRIS Calderón NGT 24 Hour I/O's: I/O last 3 completed shifts: In: 3759 [P.O.:285; I.V.:3354; NG/GT:120] Out: 4110 [Urine:3060; Other:1050] Admit Weight: 54.89 kg Current Weight: Weight: 54.9 kg (121 lb) Labs: Recent Labs 03/25/20 0155 03/24/20 0828 03/23/20 1830 WBC 13.9* 16.3* 23.4* HGB 11.2* 11.7 12.2 HCT 33.5* 37.0 37.9 PLATELET 203 214 275 Recent Labs 03/25/20 0155 03/24/20 1740 03/24/20 0828 03/23/20 1830 NA 138 -- 140 141 K 3.9 4.1 Not Perf 4.4 CL 101 -- 105 106 CO2 29 -- 26 24 BUN 10 -- 16 16 CREATININE 0.48* -- 0.77 0.88 GLUCOSE 116 -- -- 217* CALCIUM 8.2* -- 8.2* 8.1* MAGNESIUM 0.78 -- 1.07 0.69 PHOS 1.6* -- 4.6* 5.1* LFT's Lab Results Component Value Date Alk Phos 58 03/25/2020 AST 149 (H) 03/25/2020 Albumin 3.1 (L) 03/25/2020 Total Bilirubin 0.6 03/25/2020 ALT 170 (H) 03/25/2020 Total Protein 5.2 (L) 03/25/2020 KHRIS Amylase: 128: 26 129: 22 Micro: Bile duct cx (03/23): NGTD New Imaging: n/a Assessment / Plan: Linda Abel is a 74 y.o. female with PMH breast ca, HTN, pancreatic IPMN, 2Days Post-Op s/p robotic Whipple. Doing well on the floor this AM. Awaiting ROBF. PINEDO amylase reassuringly low. LFTs are stable - willcontinue to trend given concerning appearance of common hepatic artery in OR. Remove calderón today. Check u/a given AMS. NEURO: dPCA today, ok for tylenol, lidoderm patches CV: Hemodynamically normal. Holding home ASA, statin. Monitor tachycardia. PULM: Encourage OOB/IS, home albuterol (duoneb) PRN GI/FEN: Sips and Chips (Give Meds), NGT; replete electrolytes PRN. LR @100 RENAL: UOP adequate. Remove calderón today ENDO: Holding home Arimidex HEME: DVT ppx Lovenox ID: periop antibiotics, BD cultures NG MSK: OOB today PPX: PPI, IS, SCDs LINES: PIV DISPO: Floor status, Attempt Cardiopulmonary Resuscitation - Inpatient Signed: ALICE YE MD Surgical Oncology Service Team Pager #[phone] 03/25/20 1:33 PM * Beatriz Singh RN - 03/24/2020 5:55 PM EST This afternoon, pt became noticeably upset and disoriented. Pt thought she was waiting for surgery (whipple) to be completed, re-oriented to the fact that today was March 24 and she had her procedure yesterday. When told pt it was 245, asked if she knew what time of day it was, she thought it was 0245, not 1425, re-oriented. Pt frequently yelling out from room while door was open, and states you people are not very quiet,I can hear everyone talking about me pt re-directed that no one from her team was out there talking about her, and that everything she can hear from the hallway is not necessarily about her plan of care. Pt calmed down, door to remain closed per pt request. Of note, pt also stated that she does not want her siblings to be able to contact her, and if they call, to just tell them I'm doing fine, and if I take a turn for the worst, just tell them I'm doing fine pt will allow her sons to call/contact her MD aware, will continue to monitor * Davian Carolina MD - 03/24/2020 9:07 AM EST Surgical Oncology Inpatient Progress Note Patient Name: Linda MERAZ; Age: 6 1945; 74 y.o. [facility]: [facility]20 ID: Linda Abel is a 74 y.o. female with PMH main duct IPMN, now 1 Day Post-Op s/p robotic whipple. Procedures this Hospitalization: 03/23: Robotic whipple OR Findings: No metastatic disease. The liver was healthy appearing. The resection was complicated by ergonomic issues given her small size and limited space within the abdomen- this made the resection and reconstruction take longer given instrument limited range of motion. Otherwise the case went well- minimalblood loss. The pancreatic duct measured 1.5 cm and the bile duct though was quite small - only 5-6mm. After completion of the resection and as we were preparing for the reconstruction it appeared that the common hepatic or proper hepatic artery had what looked like purple discoloration and some aneurysmal dilation extending up into a branch that looked like the right hepatic artery. Her completely replaced right hepatic artery though was nicely palpable. It was unclear whether this was just some tracking of blood along the arterial adventitia or some type of dissection? We spent quite a lotof time watching this and looking at the viability/color of the liver and it appeared completely unc hanged throughout the remainder of the case. Reconstruction was an intracoporal retromesenteric anddecide (Blumgart type) duct to mucosa pancreaticojejunostomy. The pancreatic duct was so massively dilated that we could not stent it. The bile duct anastomosis however was somewhat difficult and that it was so tiny and required an interrupted Blumgart-Debra type hepaticojejunostomy with 5-0 PDS. In testinal continuity was restored by bringing the proximal jejunal limb up as a retrocolic/transmesenteric side to side (Billroth II type) handsewn gastrojejunostomy anastomosis. Final inspection at the end of the case revealed excellent hemostasis and the liver really looked completely normal and there was no areas of demarcation. ?? 24 Hour Events/Subjective: -Forgetful about using dPCA, endorsed pain/discomfort this AM. Asked me if she can push the button more than once - teaching reinforced -diffuse crepitus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 INTERVENTIONS: High Fall Risk ?? Patient-specific fall risk factors per assessment: [current deficits]:?? 74 yr old w/ recent surgery,??PICC, pain, generalized weakness,??unfamiliar environment, use of ambulatory aid ?? Assistance [level of assistance required for transfers and ambulation]:?SBA with FWW ?? Supervision [direct monitoring required during toileting and ADLs]:?Eyes on ?? Surveillance [continuous indirect monitoring]:?Nurse knowledge exchange, purposeful rounding, environmental modifications (waste basket is out of the path and the IV tubing and cords are free fromthe floor), fall reduction program in place, lighting adjusted for task, bed in low position, wheels locked, side rails up (x2), nonskid socks worn OOB, no restraints, call light is within reach at all times, assistive device, bed/chair alarm, [place] ID band on ?? Patient-specific fall prevention interventions for sensory deficits provided, if applicable:?[X]N/A ?? CPG GOAL OUTCOME EVALUATION:?? * Plan of Care - Sanjuanita Mercado RN - 04/07/2020 1:22 PM EST OUTCOME EVALUATION NOTE: OUTCOME SUMMARY: Pt reporting minimal pain throughout the day. OOB to chair this morning, ambulated in the hammer x2. Pt had large formed bowel movement this afternoon. Tolerating sips/chips, no reports of nausea. BP elevated, no PRN's required, team notified, awaiting medicine team consult. PLAN MOVING FORWARD: Monitor pain and nausea, encourage OOB and ambulation, advance diet as appropriate, encourage planning for home d/c INDIVIDUALIZED FALL PREVENTION INTERVENTIONS: High Fall Risk Patient-specific fall risk factors per assessment: [current deficits]: 74 yo s/p whipple w/ PICC infusing, 2 or more active medical diagnosis, generalized weakness Assistance [level of assistance required for transfers and ambulation]: SBA w/ FWW in hammer Supervision [direct monitoring required during toileting and ADLs]: eyes on Surveillance [continuous indirect monitoring]: Nurse knowledge exchange, purposeful rounding, environmental modifications (waste basket is out of the path and the IV tubing and cords are free from the floor), fall reduction program in place, lighting adjusted for task, bed in low position, wheels lo cked, side rails up (x2), nonskid socks worn OOB, no restraints, call light is within reach at all times, assistive device, bed/chair alarm, [place] ID band on Patient-specific fall prevention interventions for sensory deficits provided, if applicable: [X] N/A CPG GOAL OUTCOME EVALUATION: * Plan of Care - Ness Cummings RN - 04/07/2020 2:18 AM EST OUTCOME EVALUATION NOTE: ?? OUTCOME SUMMARY: ?? Patient resting between care.??Has been hypertensive, no treatment required. Temperature elevated at 37.8, resolved with no intervention. aware. Pain 2/10;??managed with PRN IV dilaudid x1. Pt reporting mild nausea managed with scheduled meds. Adequate UOP. Will continue to monitor. ?? PLAN MOVING FORWARD: Pain management, monitor ROBF, D/C home on TPN ?? INDIVIDUALIZED FALL PREVENTION INTERVENTIONS:?High Risk ?? Patient-specific fall risk factors per assessment: [current deficits]:? Recent surgery,generalized weakness, TPN infusing? Assistance [level of assistance required for transfers and ambulation]:??SBA ?? Supervision [direct monitoring required during toileting and ADLs]:?Eyes on ?? Surveillance [continuous indirect monitoring]:?? masimo, hourly rounding, room near unit station, NKE at bedside, environmental modifications (clutter-free environment, tubing secured, bed low, lighting adjusted, nonskid socks when OOB, bed wheels locked, call light with in reach, upper side rails x2, ID bands on) ?? Patient-specific fall prevention interventions for sensory deficits provided, if applicable:?[X]Yes??wears glasses ? * Plan of Care - Maria Esther Blancas RN - 04/06/2020 3:55 PM EST OUTCOME EVALUATION NOTE: OUTCOME SUMMARY: Patient received. BP elevated greater than 170 X1 hydralazine given with reflex tachycardia. MD notified, labetalol order for BP> 170 instead. Will continue to monitor. Ambulated in hallway X2, took a shower today. Requested pain medication X1 IV dilaudid with good effect. NGT removed this morning by MD Carolina. Patient tolerating sips and chips diet with minimal nausea today, one short period of nausea. Adequate urine output. -Gas/-BM this shift. Comfort and safety measures maintained, call blanco within reach bed/chair alarm on. PLAN MOVING FORWARD: -Monitor/manage pain -Encourage OOB, ambulation & IS -NGT-to LCWS, possible removal today vs sx intervention -TPN continued -D/C??home on TPN ?? INDIVIDUALIZED FALL PREVENTION INTERVENTIONS: High Fall Risk ?? Patient-specific fall risk factors per assessment: [current deficits]:?74 y.o. with recent surgery, generalized weakness, use of ambulatory aid,??PICC??w/IVFs infusing,??and unfamiliar surroundings. ?? Assistance [level of assistance required for transfers and ambulation]:?SBA with FWW ?? Supervision [direct monitoring required during toileting and ADLs]:?Eyes on, within arms reach ?? Surveillance [continuous indirect monitoring]:?Nurse knowledge exchange, purposeful rounding, environmental modifications (waste basket is out of the path and the IV tubing and cords are free fromthe floor), fall reduction program in place, lighting adjusted for task, bed in low position, wheels locked, side rails up (x2), nonskid socks worn OOB, no restraints, call light is within reach at all times, assistive device, bed/chair alarm, [place] ID band on.? Patient-specific fall prevention interventions for sensory deficits provided, if applicable:?Yes, patient wears glasses CPG GOAL OUTCOME EVALUATION: * Plan of Care - Mervin Grimes RN - 04/05/2020 3:15 PM EST OUTCOME EVALUATION NOTE: ?? OUTCOME SUMMARY: Pt??pain 4/10 pain today, managed lidocaine patches and ambulation.??Pt bps 160/90s in afternoon, aware, given 2x labetalol per md orders. Pt tolerating??sips and chips diet??w/o??nausea or emesis.??Pt NGT maintained LCWS, dark brown/green thick output, flushed per orders. AUOP,??no BM this shift.??Pt to chest xray in afternoon. Pt ambulated in hammer, short of breath and requiring o2 when back in bed, resting??between care.?? Note:1614, bp 179/103, aware, 2x labetalol per md orders, hydralazine ordered ?? PLAN MOVING FORWARD: Manage pain Monitor I&Os Encourage OOB, ambulation (w/ portable o2) ?? INDIVIDUALIZED FALL PREVENTION INTERVENTIONS: High Fall Risk ?? Patient-specific fall risk factors per assessment: [current deficits]:?? 74 yr old w/ recent surgery,??PICC, pain, generalized weakness,??unfamiliar environment, use of ambulatory aid ?? Assistance [level of assistance required for transfers and ambulation]:?SBA with FWW ?? Supervision [direct monitoring required during toileting and ADLs]:?Eyes on ?? Surveillance [continuous indirect monitoring]:?Nurse knowledge exchange, purposeful rounding, environmental modifications (waste basket is out of the path and the IV tubing and cords are free fromthe floor), fall reduction program in place, lighting adjusted for task, bed in low position, wheels locked, side rails up (x2), nonskid socks worn OOB, no restraints, call light is within reach at all times, assistive device, bed/chair alarm, [place] ID band on ?? Patient-specific fall prevention interventions for sensory deficits provided, if applicable:?[X]N/A ?? CPG GOAL OUTCOME EVALUATION:?? * Plan of Care - Wendy Ruiz RN - 04/05/2020 2:11 AM EST OUTCOME EVALUATION NOTE: OUTCOME SUMMARY: Pt reporting 3/10 pain this shift, managed well with PRN dilaudid x1 with good effect. BP elevated to 167/100 and temp to 38.2 C, team aware and continuing to monitor. Adequate UOP up to toilet. No BM this shift. Tolerating sips and chips, denies nausea. Minimal output from NGT this shift, flushed per orders. Pt overall with flat affect, resting well but expressing disappointment with health status. ?? PLAN MOVING FORWARD: Monitor and manage pain NGT to LCWS OOB activities; ROBF ?? INDIVIDUALIZED FALL PREVENTION INTERVENTIONS: High Fall Risk ?? Patient-specific fall risk factors per assessment: [current deficits]:?? Recent surgery, drains/devices, medication effects, generalized weakness, acute pain ?? Assistance [level of assistance required for transfers and ambulation]:?SBA with FWW ?? Supervision [direct monitoring required during toileting and ADLs]:?Eyes on ?? Surveillance [continuous indirect monitoring]:?Nurse knowledge exchange, purposeful rounding, environmental modifications (waste basket is out of the path and the IV tubing and cords are free fromthe floor), fall reduction program in place, lighting adjusted for task, bed in low position, wheels locked, side rails up (x2), nonskid socks worn OOB, no restraints, call light is within reach at all times, assistive device, bed/chair alarm, [place] ID band on ?? Patient-specific fall prevention interventions for sensory deficits provided, if applicable:?[X]N/A CPG GOAL OUTCOME EVALUATION: * Plan of Care - Mervin Grimes RN - 04/04/2020 3:27 PM EST OUTCOME EVALUATION NOTE: ?? OUTCOME SUMMARY: Pt pain 1-3/10 pain today, managed well with prn dilaudid. Pt bps 160-170s/90s in afternoon, md aware, given 1x labetalol per md orders. Pt tolerating sips and chips diet w/o nausea or emesis. Pt NGTmaintained LCWS, dark brown/green thick output, flushed per orders. AUOP, no BM this shift. Potassium chloride and potassium phosphate given in afternoon. Pt resting between care.?? PLAN MOVING FORWARD: Manage pain Monitor I&Os Encourage OOB, ambulation ?? INDIVIDUALIZED FALL PREVENTION INTERVENTIONS: High Fall Risk ?? Patient-specific fall risk factors per assessment: [current deficits]:?? 74 yr old w/ recent surgery, PICC, pain, generalized weakness, unfamiliar environment, use of ambulatory aid ?? Assistance [level of assistance required for transfers and ambulation]:?SBA with FWW ?? Supervision [direct monitoring required during toileting and ADLs]:?Eyes on ?? Surveillance [continuous indirect monitoring]:?Nurse knowledge exchange, purposeful rounding, environmental modifications (waste basket is out of the path and the IV tubing and cords are free fromthe floor), fall reduction program in place, lighting adjusted for task, bed in low position, wheels locked, side rails up (x2), nonskid socks worn OOB, no restraints, call light is within reach at all times, assistive device, bed/chair alarm, [place] ID band on ?? Patient-specific fall prevention interventions for sensory deficits provided, if applicable:?[X]N/A ?? CPG GOAL OUTCOME EVALUATION:?? * Plan of Care - Wendy Ruiz RN - 04/03/2020 5:45 PM EST OUTCOME EVALUATION NOTE: OUTCOME SUMMARY: Pt reporting minimal pain 4/10 this shift in abdomen and lower back, managed well with scheduled meds and lidocaine patches. MD bedside this morning to assess NGT, xray confirmation ordered and performed, see results. NGT continues to LCWS with moderate amounts of dark/thick and foul output, flushed per orders. Diet advanced to sips and chips, tolerating well and denies nausea. Pt had temp this afternoon at 38 C, scheduled tylenol given, temp later down to 37.1. Pt has had adequate UOP up to toilet, but with some dizziness noted by staff ambulating to bathroom. PT attempted to see pt today but patient was tearful and declined. No BM this shift, pt denies passing flatus. Resting OK between care. ?? PLAN MOVING FORWARD: Monitor and manage pain Encourage OOB and ambulation NGT to LCWS ?? INDIVIDUALIZED FALL PREVENTION INTERVENTIONS: High Fall Risk ?? Patient-specific fall risk factors per assessment: [current deficits]: Recent surgery, acute pain, NGT, drains/devices, generalized weakness, IVF ?? Assistance [level of assistance required for transfers and ambulation]: SBA with FWW ?? Supervision [direct monitoring required during toileting and ADLs]: Eyes ?? Surveillance [continuous indirect monitoring]: Nurse knowledge exchange, purposeful rounding, environmental modifications (waste basket is out of the path and the IV tubing and cords are free from the floor), fall reduction program in place, lighting adjusted for task, bed in low position, wheels lo cked, side rails up (x2), nonskid socks worn OOB, no restraints, call light is within reach at all times ?? Patient-specific fall prevention interventions for sensory deficits provided, if applicable: [X] N/A ?? CPG GOAL OUTCOME EVALUATION: * Plan of Care - Leandro Henderson RN - 04/03/2020 1:32 AM EST OUTCOME EVALUATION NOTE: OUTCOME SUMMARY: Patient alert and oriented throughout shift. Vital signs stable with some intermittent tachycardia.TPN and IV fluids infusing. Pain medication given as needed. Oxygen placed on overnight. NGT to R nare to LCWS, flushed per order. Patient able to ambulate to bathroom to void. Call blanco within reachand patient ringing appropriately. Will continue to monitor. TPN set to around 0545, informed by pharmacy that they ran out of TPN mixture. Team aware and fat emulsion still infusing. PLAN MOVING FORWARD: Monitor I&O, mobilization, pain control INDIVIDUALIZED FALL PREVENTION INTERVENTIONS: Patient-specific fall risk factors per assessment: NGT, IV pole, weakness Assistance: 1 assist, FWW Supervision: Hands on Surveillance: Bed locked in low position, call blanco within reach, purposeful hourly rounding, clutter free environment, bed/chair alarm on Patient-specific fall prevention interventions for sensory deficits provided: Yes CPG GOAL OUTCOME EVALUATION: Continue care plan as documented. * Op Note - Ralf Urrutia MD - 04/02/2020 4:04 PM EST [facility] [place] Operative Note Patient Name: Linda Abel : [id number] MR#: [id number] Case Date: 04/02/2020 Surgeon: Surgeon(s) and Role: * Ralf Urrutia MD - Primary Preoperative diagnosis: Post Whipple Postoperative diagnosis: * No post-op diagnosis entered * Procedure(s): EGD, UPPER GI ENDOSCOPY Please see Provation report for details. * Consult Note - Chela Rvias - 04/02/2020 11:10 AM EST GASTROENTEROLOGY & HEPATOLOGY CONSULTATION Initial Consult Note Requesting Provider: Davian Carolina MD REASON FOR CONSULTATION Nausea/vomiting s/p Whipple HISTORY OF PRESENT ILLNESS Linda Abel is a 74 y.o. PMHX breast cancer s/p mastectomy, main duct IPMN s/p Whipple with [id number] 10 days ago. GI consulted for worsening nausea and abnormal CT. Patient underwent Whipple 03/23/20 for symptomatic main duct IPMN, procedure notable for inability to stent pancreatic duct due to degree of dilation, and difficult with bile duct anastomoses; she underwent a gastrojejunostomy Bilroth II reconstruction. She had since been recovering well post-op with removal since then of her KHRIS drain and NGT. However a few days ago, patient started experiencing new nausea and emesis of dark, feculent-appearing material. No blood or coffee-ground emesis. A new NGT was placed and has been placed to suction with dark brown/green material. She continues to feel some abdominal distention but no new pain as she recovers from her procedure; is not having a BM but does endorse passing flatus. No chronic NSAID use, rare etoh. No previous EGD; no recent gross abnormalities seen on EUS when evaluating IPMN. A CT was performed yesterday with oral contrast, notable for distended stomach with dilated jejunum up until a ?transition point. There was minimal oral contrast passing down the efferent limb. ROS: 10 systems reviewed and positive for those in HPI, otherwise negative PAST MEDICAL/SURGICAL HISTORY: Past Medical History: Diagnosis Date ??? Basal cell carcinoma 2009 [facility]-back ??? Breast cancer ??? Pre-diabetes 03/30/2020 MEDICATIONS ??? [MAR Hold] insulin lispro 1-4 Units Subcutaneous Q6H LUZ ??? [MAR Hold] fat emulsion 500 mL Intravenous Daily ??? [MAR Hold] metoclopramide 10 mg Intravenous Q6H LUZ ??? [MAR Hold] acetaminophen 1,000 mg Intravenous Q8H LUZ ??? [MAR Hold] pantoprazole 40 mg Intravenous BID ??? [MAR Hold] lidocaine 2 patch Transdermal Q24H And ??? [MAR Hold] lidocaine 1 patch Transdermal Q24H ??? sodium chloride 0.9 % (flush) 5 mL Intravenous BID ??? [MAR Hold] enoxaparin 40 mg Subcutaneous Nightly ??? [MAR Hold] amino acid 4.25% in dextrose 5% with electrolytes (Peripheral TPN) ??? [MAR Hold] sodium chloride 0.9% with potassium chloride 20 mEq 100 mL/hr (04/02/20 1310) [MAR Hold] phenol 1.4%, [MAR Hold] HYDROmorphone, sodium chloride 0.9 % (flush), lidocaine, [MAR Hold] ondansetron, naloxone, [MAR Hold] glucose 40% oral geL OR [MAR Hold] dextrose 10% OR [MAR Hold] glucagon (human recombinant), BUpivacaine (pf), [MAR Hold] ipratropium-albuteroL ALLERGIES Allergies Allergen Reactions ??? House Dust SOCIAL HISTORY Social History Socioeconomic History ??? Marital status: Spouse name: Not on file ??? Number of children: Not on file ??? Years of education: Not on file ??? Highest education level: Not on file Occupational History ??? Not on file Social Needs ??? Financial resource strain: Not on file ??? Food insecurity Worry: Not on file Inability: Not on file ??? Transportation needs Medical: Not on file Non-medical: Not on file Tobacco Use ??? Smoking status: Never Smoker ??? Smokeless tobacco: Never Used Substance and Sexual Activity ??? Alcohol use: Not Currently ??? Drug use: Never ??? Sexual activity: Not Currently Lifestyle ??? Physical activity Days per week: Not on file Minutes per session: Not on file ??? Stress: Not on file Relationships ??? Social connections Talks on phone: Not on file Gets together: Not on file Attends christianity service: Not on file Active member of club or organization: Not on file Attends meetings of clubs or organizations: Not on file Relationship status: Not on file ??? Intimate partner violence Fear of current or ex partner: Not on file Emotionally abused: Not on file Physically abused: Not on file Forced sexual activity: Not on file Other Topics Concern ??? Not on file Social History Narrative ??? Not on file FAMILY HISTORY Family History Problem Relation Age of Onset ??? Breast Cancer Sister 46 CHEK2 mutation ??? Ovarian Cancer Neg Hx Vitals: 04/02/20 1210 04/02/20 1222 04/02/20 1416 04/02/20 1422 BP: 159/89 (!) 217/65 BP Location (NBP): Left arm Patient Position: Lying Pulse: 86 Resp: Temp: 36.6 ??C (97.9 ??F) 37.4 ??C (99.3 ??F) TempSrc: Oral Tympanic SpO2: 94% 95% Weight: Height: PHYSICAL EXAM GENERAL: Elderly tired female in NAD, NGT in place to suction HEENT: AT/NC, sclerae anicteric, moist mucous membranes. NGT draining light brown material CHEST: CTA CARDIAC: RRR, normal S1/S2, no appreciable murmurs ABDOMEN: Surgical sites c/d/i. Mild tenderness to central abdomen. Non- distended, non-tympanic. No mass or LAD. EXT: Warm, no edema NEURO: Grossly intact, moves all extremities, no asterixis SKIN: No jaundice LABS: Lab Results Component Value Date Sodium 131 (L) 04/02/2020 Potassium 4.3 04/02/2020 Chloride 94 (L) 04/02/2020 CO2 24 04/02/2020 BUN 11 04/02/2020 Creatinine 0.57 (L) 04/02/2020 Glucose Lvl 115 04/02/2020 CBC Lab Results Component Value Date WBC 16.2 (H) 04/02/2020 Hemoglobin 11.0 (L) 04/02/2020 Hematocrit 31.1 (L) 04/02/2020 Platelets 351 04/02/2020 LFT's No results found for: ALKPHOS, AST, ALBUMIN, BILIDIR, BILITOT, ALT, PROT IMAGING: Reviewed in e[facility] 04/01/2020 CT A/P IMPRESSION ?? 1. Distended stomach with widely patent gastrojejunostomy. Distal to the gastrojejunostomy the jejunum is dilated to a point where it comes to a beak appearance in the midline anterior abdomen. Distal to this the small bowel is nonopacified and distended. Cannot exclude a possible focal stricture with a partial small bowel obstruction. 2. As noted previously post Whipple procedure. Remaining pancreatic body and tail are unremarkable. 3. Incidental finding of dilated, fluid-filled appendix. Clinical correlation to exclude acute appendicitis. No periappendiceal inflammatory changes 03/26/20 CTA A/P IMPRESSION ?? 1. Normal appearance of celiac axis and its branches. No evidence of aneurysm or pseudoaneurysm. 2. Post Whipple procedure with expected postoperative changes. 3. Bilateral pleural effusions with LEFT basilar focal atelectasis ENDOSCOPY: Reviewed in [facility] 10/2019 EGD Impression: ?- Endosonographic findings compatible ?with main duct IPMN; ERCP deferred; ?fluid sent for analysis. Recommendation: ?- Discharge patient to home. ?- Resume previous diet. ?- Await pathology results. ?- Discuss surgical referral pending ?path IMPRESSION: Linda Abel is a 74 y.o. PMHX breast cancer s/p mastectomy, main duct IPMN s/p Whipple with [id number] 10 days ago. GI consulted for worsening nausea and abnormal CT. Concern with her acute onset of symptoms with limited oral contrast passing through efferent limb with dilated jejunum for post-surgical complication including adhesions, anastomotic ulcers. Other factors to explain her nausea include medication-induced with prn dilaudid although she has required limited doses in last 48 hours. Will plan to evaluate further with EGD today. RECOMMENDATIONS: -NPO for EGD today -Taper opiates for pain control as able -Continue NGT to suction The plan as outlined above was discussed with Dr. Urrutia. Chela Rivas M.D. Fellow in Gastroenterology and Hepatology Pager #[phone] 04/02/2020 Associated attestation - Ralf Urrutia MD - 04/02/2020 4:17 PM EST I have independently seen and examined the patient, and have reviewed the resident???s above note, and agree with the documented history, physical findings, and study results; my evaluation of the patient is below: Met with Ms Abel and agree with plan for endoscopic examination and plan as outlined by Dr Rob Urrutia MD * Plan of Care - China Mendez RN - 04/02/2020 4:37 AM EST Problem: Patient Care Overview Goal: Plan of Care Review Outcome: Ongoing (Interventions Implemented as Appropriate) 03/24/20 18004/01/202019 Coping/Psychosocial Plan Of Care Reviewed With -- patient Plan of Care Review Progress progress toward functional goals as expected -- OUTCOME EVALUATION NOTE: OUTCOME SUMMARY: Pain well controlled with scheduled Tylenol and prn IV Dilaudid x2. VSS, patient on 2L NC overnight. Tolerating sips and chips diet, no complaints of nausea and no emesis. NG tube remains to LCWS with large amounts of green/brown output. NG tube flushed per MD orders. No BM this shift, not passing flatus. Voiding adequate amounts of urine. Patient rested well throughout the night. PLAN MOVING FORWARD: Monitor/manage pain, I&O's, encourage OOB, encourage ambulation, NG tube to LCWS, monitor/manage nausea, continue with current plan INDIVIDUALIZED FALL PREVENTION INTERVENTIONS: High Fall Risk Patient-specific fall risk factors per assessment: [current deficits]: Recent surgery, tubes/drains, generalized weakness, pain, IV pain medications Assistance [level of assistance required for transfers and ambulation]: SBA Supervision [direct monitoring required during toileting and ADLs]: Eyes on Surveillance [continuous indirect monitoring]: Yes, Bed/Chair alarm, environmental modification (floor free of clutter, tubing secured), bed in low position, lighting adjusted for task/safety, nonskid slippers when out of bed, wheels locked, call light in reach, upper side-rails raised X2, ID bandson. Patient-specific fall prevention interventions for sensory deficits provided, if applicable: [X] N/A CPG GOAL OUTCOME EVALUATION: Goal: Individualization & Mutuality Outcome: Ongoing (Interventions Implemented as Appropriate) 03/24/201814 Mutuality/Individual Preferences What Anxieties, Fears or Concerns Do You Have About Your Health or Care? I want everything to go okay What Questions Do You Have About Your Health or Care? None at this time What Information Would Help Us Give You More Personalized Care? None at this time Goal: Fall Prevention-Safe Patient Handling Outcome: Ongoing (Interventions Implemented as Appropriate) 04/01/202019 Daily Care Interventions Self-Care Promotion independence encouraged Andrea Fall Risk History of Falling 0 Secondary Diagnosis 15 Ambulatory Aids 0 Intravenous Therapy/Heparin/Saline Lock 20 Gait/Transferring 10 Mental Status 0 Score 45 OTHER Andrea Fall Risk High Restraint Interventions Safety Promotion/Fall Prevention activity supervised;fall prevention program maintained;nonskid shoes/slippers when out of bed;safety round/check completed Positioning Body Position independent Activity Activity Type activity adjusted per tolerance;activity encouraged Activity Assistance Provided assistance, stand-by Assistive Device Utilized none Goal: Infection Control Outcome: Ongoing (Interventions Implemented as Appropriate) 04/01/202019 Safety Interventions Isolation Precautions standard precautions maintained Infection Prevention single patient room provided;rest/sleep promoted;environmental surveillance performed Coping Strategies Supportive Measures active listening utilized;decision-making supported;goal setting facilitated;positive reinforcement provided;problem solving facilitated;relaxation techniques promoted;self-care encouraged;self- responsibility promoted;verbalization of feelings encouraged;self-reflection promoted Goal: Discharge Needs Assessment Outcome: Ongoing (Interventions Implemented as Appropriate) 03/26/20449 Discharge Needs Assessment Discharge Disposition still a patient Goal: Interdisciplinary Rounds/Family Conf Outcome: Ongoing (Interventions Implemented as Appropriate) 03/26/20449 Interdisciplinary Rounds/Family Conf Participants patient;nursing * Plan of Care - Sanjuanita Mercado RN - 04/01/2020 7:03 PM EST OUTCOME EVALUATION NOTE: OUTCOME SUMMARY: Pt reporting minimal pain throughout the day, declined scheduled tylenol. Pt reporting ongoing nausea throughout the day, minimal relief w/ PRN zofran. Pt went to CT scan, unable to tolerate full amount of PO contrast. MD Carolina at bedside to place NGT this afternoon, pt c/o throat pain s/p placement, chloraseptic ordered. NGT w/ large green/brown output. MIVF started. Pt denied passing flatus, noBM, hypoactive bowel sounds. PLAN MOVING FORWARD: Monitor pain, encourage OOB and ambulation, NGT to LCWS, sips/chips for comfort, monitor labs, d/c planning as appropriate INDIVIDUALIZED FALL PREVENTION INTERVENTIONS: Med Fall Risk Patient-specific fall risk factors per assessment: [current deficits]: 74 yo s/p whipple w/ PICC infusing, NGT to LCWS, 2 or more active medical diagnosis Assistance [level of assistance required for transfers and ambulation]: Indp Supervision [direct monitoring required during toileting and ADLs]: Indp Surveillance [continuous indirect monitoring]: Nurse knowledge exchange, purposeful rounding, environmental modifications (waste basket is out of the path and the IV tubing and cords are free from the floor), fall reduction program in place, lighting adjusted for task, bed in low position, wheels lo cked, side rails up (x2), nonskid socks worn OOB, no restraints, call light is within reach at all times Patient-specific fall prevention interventions for sensory deficits provided, if applicable: [X] N/A CPG GOAL OUTCOME EVALUATION: * Plan of Care - Ness Cummings RN - 04/01/2020 1:36 AM EST OUTCOME EVALUATION NOTE: ?? OUTCOME SUMMARY: ?? Patient resting between care.??Pain 2/10;??managed with scheduled meds, and PRN oxycodone. Pt continuously nauseous this shift with small emesis. Zofran and scheduled Reglan given with no effect, aware. Soap nupur enema given with no results. Adeqaute??UOP. Will continue to monitor. ?? PLAN MOVING FORWARD: Pain management, return of bowel function, d/c planning ?? INDIVIDUALIZED FALL PREVENTION INTERVENTIONS:?Medium Risk ?? Patient-specific fall risk factors per assessment: [current deficits]:? Recent surgery,generalized weakness? Assistance [level of assistance required for transfers and ambulation]:?Independent in room ?? Supervision [direct monitoring required during toileting and ADLs]:?Eyes on ?? Surveillance [continuous indirect monitoring]:?? masimo, hourly rounding, room near unit station, NKE at bedside, environmental modifications (clutter-free environment, tubing secured, bed low, lighting adjusted, nonskid socks when OOB, bed wheels locked, call light with in reach, upper side rails x2, ID bands on) ?? Patient-specific fall prevention interventions for sensory deficits provided, if applicable:?[X]Yes??wears glasses ? * Consult Note - Jairon Maria MD - 03/31/2020 8:04 AM EST Internal Medicine Initial Consult Note Admit date: Hospital day: Service: Primary Attending Consult Attending 03/23/2020 8 General Surgery Davian Carolina MD Reason for Consult: Management of Hypertension HPI: Linda Abel is a 74 y.o. female with PMHx significant for HTN and a pancreatic main duct IPMN who received a Robotic Whipple on 03/23. 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 She also required TPN that was continued until 03/29. The grade of her hypertension has fluctuated, going from a BP within goal from 03/25 - 03/28 to persistent levels of hypertension >170/90 from 03/28 until today. Her goal BP, noted by her age and absence of T2DM is <150/90. Per chart review, she has had documented hypertension on outpatient visit, with the most recent being in January 2020. She notes that she has been diagnosed with HTN in the past, and had been on HCTZ that she discontinued approximately 2 years ago. Of note, she has had post-operative abdominal discomfort. She denies a history of diabetes and hyperthyroidism. She denies palpitations, chest pain, headaches, lightheadedness, fevers, chills, diaphoresis. Interval History: - BP improved to 120s/70s overnight - She denies headaches, chest pain, dyspnea, visual disturbances. She had a transient episode of nausea yesterday evening. Past Medical History/Problem List Patient Active Problem List Diagnosis Code ??? 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 Basal cell carcinoma 2009 [facility]-back ??? Breast cancer Meds: No current facility-administered medications on file prior to encounter. Current Outpatient Medications on File Prior to Encounter Medication Sig Dispense Refill ??? aspirin EC 81 mg Tablet, Delayed Release (E.C.) Take 81 mg by mouth daily. ??? b complex vitamins Capsule Take 1 capsule by mouth daily. ??? CALCIUM CARBONATE-VITAMIN D3 ORAL Take by mouth. ??? pravastatin (Pravachol) 20 mg Tablet Take 20 mg by mouth daily. ??? albuteroL 90 mcg/actuation HFA Aerosol Inhaler ??? fluticasone propionate (FLONASE) 50 mcg/actuation [place], Suspension 1 spray daily. ??? Creon 24,000-76,000 -120,000 unit Capsule, Delayed Release(E.C.) TAKE 1 TO 2 CAPSULES BY MOUTH 3 TIMES DAILY WITH MEALS 750 capsule 3 ??? anastrozole (Arimidex) 1 mg Tablet Take 1 tablet by mouth daily. Start mid January 2020. 90 tablet 3 ??? [place]ela Inhub 500-50 mcg/dose Disk with Device ??? omeprazole (PriLOSEC) 20 mg Capsule, Delayed Release(E.C.) ??? cholecalciferol, Vitamin D3, 1,000 unit Capsule Take 1,000 Units by mouth daily. ??? multivit,iron,minerals/lutein (CENTRUM SILVER ULTRA WOMEN'S ORAL) Take by mouth daily. ??? magnesium oxide 400 mg magnesium Capsule Take by mouth. ??? fish oil-omega-3 fatty acids 1,000 mg Capsule Take 2 g by mouth daily. ??? vitamin E 400 unit capsule Allergies: Allergies Allergen Reactions ??? House Dust Past Surgical History Past Surgical History: Procedure Laterality Date ??? CREATED BY INTERFACE BREAST BIOPSY / RT/MULTIPLE Procedure Date: 01/23/2001 ??? CREATED BY INTERFACE COLONOSCOPY (ENDO) Procedure Date: 12/24/2003 ??? CREATED BY INTERFACE Entered not Verified Procedure Date: 01/22/2010 ??? CREATED BY INTERFACE MODIFIED RADICAL MASTECTOMY / RT Procedure Date: 02/06/2001 ??? MAMMO STEREOTACTIC BIOPSY LEFT N/A 12/05/2019 Mammo Stereotactic Biopsy Left 12/05/2019 [facility] RAD MAMMOGRAPHY ??? MASTECTOMY Right with RT ??? PRO BX/REMV, LYMPH NODE, DEEP AXILL Left 12/20/2019 BIOPSY OR EXCISION OF LYMPH NODE(S), OPEN, DEEP AXILLARY NODE(S) (WRVU 6.43) performed by Ssuan Rivera MD at [facility] ??? PRO COLONOSCOPY, DIAGNOSTIC 01/07/2014 COLONOSCOPY, DIAGNOSTIC performed by Izzy Johnson MD at [facility] ENDOSCOPY ??? PRO ENDOSCOPIC US EXAM, ESOPH N/A 11/15/2019 UPPER EUS- ENDOSCOPIC ULTRASOUND performed by Ralf Urrutia MD at [facility] ??? PRO INTRAOP SENTINEL LYMPH ID W/DYE INJECTION Left 12/20/2019 INTRAOPERATIVE ID (MAPPING) SENTINEL LYMPH NODE,INCLUDES INJECTION (WRVU 2.5) performed by Susan Rivera MD at [facility] ??? PRO MASTECTOMY, SIMPLE, COMPLETE Left 12/20/2019 MASTECTOMY, SIMPLE, COMPLETE (WRVU 15.85) performed by Susan Rivera MD at [facility] ??? PRO OMENTAL FLAP, INTRA-ABDOMINAL 03/23/2020 @OMENTAL FLAP, INTRA-ABDOMINAL (WRVU 6.54) performed by Davian Carolina MD at [facility] ??? PRO UNLISTED PX PNCRS N/A 03/23/2020 ROBOTIC PANCREATECTOMY,WHIPPLE, PARTIAL GASTRECTOMY W/ PANCREATOJEJUNOSTOMY performed by Davian Carolina MD at [facility] Family History: Siblings: Sister with breast cancer, brother with ASCVD Social History: Tobacco: None Etoh: Did consume 2-3 ETOh beverages a day. Stopped drinking in September 2019 Illicits: None Vitals: Last value Range last 24 hrs Temperature Temp: 36.9 ??C (98.4 ??F) Temp: [36.6 ??C (97.9 ??F)-36.9 ??C (98.4 ??F)] Heart Rate Heart Rate: 70 Heart Rate: [70] Blood Pressure BP: 125/73 BP: (120-153)/(68-90) Respiratory Rate Resp: 16 Resp: [14-18] SpO2 SpO2: 93 % SpO2: [93 %-96 %] I/O last 3 completed shifts: In: 2784 [P.O.:1790; I.V.:226] Out: 2955 [Urine:2925; Other:30] Examination: General: Pleasant, alert, appropriate, in NAD. HEENT: EOMI, nonicteric. Oropharynx clear w/o erythema, plaques or exudates or other lesions. No thrush; MMMs Neck: No LAD. No JVD. Cardiac: Normal S1 and S2, Regular rate and rhythm; No murmurs noted. Respiratory: Nonlabored. Clear to auscultation bilaterally; No wheezes or crackles. Abd: + BS; tender to palpation. Well-healed midline scar. RUQ ostomy site that is draining well with no surrounding erythema. Ext: No edema, cyanosis, clubbing. Neuro: II-XII grossly intact. Alert and orientated, no-focal deficits, sensation intact to crude touch, motor strength 5/5 throughout Skin: No rashs, no lesions, no petechiae Laboratory: CBC: Recent Labs 03/31/20 0636 03/30/20 0120 03/29/20 0120 WBC 9.0 10.4* 6.8 HGB 11.4* 12.0 11.3* PLATELET 252 231 176 Chemistry: Recent Labs 03/31/20 0636 03/30/20 0120 03/29/20 0230 03/27/20 0320 03/26/20 0145 NA 133* 135 139 < > 139 139 K 3.9 3.7 3.6 < > 3.8 3.4* CL 95* 98 104 < > 101 98 CO2 29 28 28 < > 27 29 BUN 16 15 18 < > 12 6* CREATININE 0.48* 0.40* 0.40* < > 0.49* 0.54* GLUCOSE -- -- 163 -- 73 131 < > = values in this interval not displayed. Recent Labs 03/31/20 0636 03/30/20 0120 03/29/20 0230 CALCIUM 8.7 8.2* 7.9* MAGNESIUM 0.77 0.83 0.86 PHOS 3.7 3.3 3.0 LFT's: Recent Labs 03/27/20 0320 03/26/20 0145 03/25/20 0155 BILITOT 0.4 0.6 0.6 ALBUMIN 3.2 3.3 3.1* ALKPHOS 58 60 58 ALT 160* 240* 170* AST 77* 166* 149* Microbiology: No results for input(s): URINECULTURE in the last 720 hours. Recent Labs 03/23/20 1346 GRAMSTAIN Cytocentrifuge Gram Stain performed Neutrophils seen No microorganisms seen. BFCX No growth No results for input(s): BLOODCX in the last 720 hours. Diagnostic Studies: CT Angiogram Abdomen and Pelvis 03/26/2020 IMPRESSION ?? 1. Normal appearance of celiac axis and its branches. No evidence of aneurysm or pseudoaneurysm. 2. Post Whipple procedure with expected postoperative changes. 3. Bilateral pleural effusions with LEFT basilar focal atelectasis ?? Assessment: Linda Abel is a 74 y.o. 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 The Medicine service has been consulted for management of hypertension. Given her history of essential hypertension and acute pain, she likely had an acute elevation of her BP on a baseline of hypertension. It appears that her BP has improved with the initiation of HCTZ. She is well within her JNC-8 goalsof <150/90 and we do not recommend additional blood pressure medication at this point. She should proceed with outpatient management and close outpatient BP monitoring. Regarding her hyperglycemia, with her HbA1c of 5.8, it is not likely chronic. I recommend sliding scale insulin as she weans off of TPN. Summary - Continue HCTZ 25mg Qday - Home BP monitoring - have her take a random times of the day on different days to get a sense of her baseline BP. - Close follow-up with PCP - advise her PCP get another BMP on follow-up appointment. #Essential HTN - HCTZ 25mg Qday - Recommend having her monitor BP as an outpatient and close follow-up with PCP for continued management. #Hyperglycemia - HbA1c 5.8 - Continue SSI - Likely from post-operative pain as well as TPN Case was discussed with medicine consult attending, Nataly Leggett MD. X Consult service will continue to follow patient. Recommendations are above, please page if further consultation required. Jairon Maria MD Internal Medicine, PGY3 [facility] Pager # [phone] Associated attestation - Nataly Leggett MD - 04/05/2020 12:07 PM EST Attending Staff New Consult Documentation We have been asked to see this patient in consultation by Dr. Davian Carolina from General Surgery. Please see Dr. Jairon Maria's note for details of the patient history of presentation and data. I have discussed, reviewed and agree with the documented history with ROS, social and family history, medication list, physical findings, labs/studies, Assessment and Plan of care. I have examined the patient myself and reviewed all labs and studies personally. * Plan of Care - Ness Cummings RN - 03/31/2020 2:21 AM EST OUTCOME EVALUATION NOTE: ?? OUTCOME SUMMARY: ?? Patient resting between care. Pain 06/24; managed with scheduled meds, PRN Toradol and Oxycodone x2.She had a large green emesis after drinking mixture of apple juice, prune juice and butter, to helpher have a BM. MD aware. Declined nausea medication, felt better after emesis. Had a medium size hard formed BM. Adeqaute UOP. Will continue to monitor. ?? PLAN MOVING FORWARD: Pain management, possible D/C today ?? INDIVIDUALIZED FALL PREVENTION INTERVENTIONS: Medium Risk ?? Patient-specific fall risk factors per assessment: [current deficits]: Recent surgery,generalized weakness ?? Assistance [level of assistance required for transfers and ambulation]: Independent in room ?? Supervision [direct monitoring required during toileting and ADLs]: Eyes on ?? Surveillance [continuous indirect monitoring]: masimo, hourly rounding, room near unit station, NKEat bedside, environmental modifications (clutter-free environment, tubing secured, bed low, lighting adjusted, nonskid socks when OOB, bed wheels locked, call light with in reach, upper side rails x2, ID bands on) ?? Patient-specific fall prevention interventions for sensory deficits provided, if applicable: [X] Yes wears glasses ? CPG GOAL OUTCOME EVALUATION: ? * Consult Note - Katie Santamaria APRN - 03/30/2020 12:36 PM EST Images from the original note were not included. Diabetes Management Team Inpatient Consult Date of Consultation: 03/30/2020 Consult Requested by: Surgical Oncology Reason for Consultation: We are seeing Linda Abel at the request of the surgical oncology service for the management of hyperglycemia. I have reviewed the available records, interviewed and examined the patient. HPI: Linda Abel is a 74 y.o. 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 Maricruz has no prior history of diabetes, she states she understands that diet and exercise are gonsalez totreating diabetes and that Dr Carolina told her she may become diabetic after the surgery. PMH Past Medical History: Diagnosis Date ??? Basal cell carcinoma 2010 [facility]-back ??? Breast cancer Relevant Medications: Allergy: Allergies Allergen Reactions ??? House Dust Social history: Social History Tobacco Use ??? Smoking status: Never Smoker ??? Smokeless tobacco: Never Used Substance Use Topics ??? Alcohol use: Not Currently Comment: socially, 1-2 wine a month ??? Drug use: Never Family history: Family History Problem Relation Age of Onset ??? Breast Cancer Sister 46 CHEK2 mutation ??? Ovarian Cancer Neg Hx Vitals Last value Range last 24 hrs Temperature Temp: 36.6 ??C (97.9 ??F) Temp: [36.6 ??C (97.9 ??F)-37.2 ??C (99 ??F)] Heart Rate Heart Rate: 70 Heart Rate: [70-77] Blood Pressure BP: 144/84 BP: (144-188)/(84-101) Respiratory Rate Resp: 16 Resp: [16-18] SpO2 SpO2: 94 % SpO2: [93 %-95 %] Physical Exam: deferred Labs: Recent Labs 03/30/20 0120 03/29/20 0120 03/28/20 0145 WBC 10.4* 6.8 6.9 HGB 12.0 11.3* 11.3* HCT 34.9* 31.8* 33.4* PLATELET 231 176 205 NEUTROABS 8.06* 4.85 4.74 Recent Labs 03/30/20 0120 03/29/20 0230 03/28/20 0145 03/27/20 0320 03/26/20 0145 NA 135 139 139 139 139 K 3.7 3.6 3.7 3.8 3.4* CL 98 104 103 101 98 CO2 28 28 27 27 29 BUN 15 18 17 12 6* CREATININE 0.40* 0.40* 0.46* 0.49* 0.54* GLUCOSE -- 163 -- 73 131 Recent Labs 03/30/20 0120 03/29/20 0230 03/28/20 0145 CALCIUM 8.2* 7.9* 8.4* MAGNESIUM 0.83 0.86 0.87 PHOS 3.3 3.0 2.9 Recent Labs 03/27/20 0320 03/26/20 0145 03/25/20 0155 PROT 5.4* 5.5* 5.2* ALBUMIN 3.2 3.3 3.1* AST 77* 166* 149* ALT 160* 240* 170* ALKPHOS 58 60 58 BILITOT 0.4 0.6 0.6 Recent Labs 03/29/20 0230 03/27/20 0320 03/26/20 0145 03/25/20 0155 03/23/20 1830 GLUCOSE 163 73 131 116 217* Results for LINDA ABEL ( ) as of 03/30/2020 15:18 Ref. Range 03/30/2020 13:45 C-Peptide Latest Ref Range: 0.8 - 5.2 ng/mL 1.4 Assessment: Patient is a 74 y.o. years old female with NO PMH of DM who was admitted on 03/23/2020 for IPMN s/p robotic whipple on 03/23. Hgb A1C was evaluated and found to be 5.8% Prior to initiation of TPN she had low BG levels. She required only 4-5 units correction insulin while TPN infused with 118 G dextrose in solution indicating she is able to produce enough endogenous insulin post operatively to avoid hyperglycemia. For additional confirmation of this will check c-peptide to evaluate endogenous insulin production. 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 For this reason we recommend evaluation of Hgb A1C every 3 to 6 months. C-Peptide 1.4 at 13:45 today (BG 156 at 11:41) this is low normal I have asked Gina Greer [facility] C[facility] to meet with her to provide education about delaying progression to T2 DM with lifestyle modification. Gina agrees to see her and also will provide BG meter and some test strips, it may be difficult to get insurance coverage for diabetes testing supplies without a diagnosis of diabetes, she will follow up with her PCP on this, I also advised the most cost effective meters and strips that I am aware of are [employer] brand Relion meter and strips. I left a message with PCP to discuss. 25 minutes of this 35 minute visit was spent with the patient in counseling on diabetes and treatment plan, reviewing all glucose and insulin data as well as relevant laboratory results with the patient, and coordination of care on the inpatient unit * Consult Note - Jairon Maria MD - 03/30/2020 8:52 AM EST Internal Medicine Initial Consult Note Admit date: Hospital day: Service: Primary Attending Consult Attending 03/23/2020 7 General Surgery Davian Carolina MD Reason for Consult: Management of Hypertension HPI: Linda Abel is a 74 y.o. female with PMHx significant for HTN and a pancreatic main duct IPMN who received a Robotic Whipple on 03/23. 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 She also required TPN that was continued until 03/29. The grade of her hypertension has fluctuated, going from a BP within goal from 03/25 - 03/28 to persistent levels of hypertension >170/90 from 03/28 until today. Her goal BP, noted by her age and absence of T2DM is <150/90. Per chart review, she has had documented hypertension on outpatient visit, with the most recent being in January 2020. She notes that she has been diagnosed with HTN in the past, and had been on HCTZ that she discontinued approximately 2 years ago. Of note, she has had post-operative abdominal discomfort and she notes that yesterday evening, she had a dull abdominal pain that was 5/10 in severity. She denies a history of diabetes and hyperthyroidism. She denies palpitations, chest pain, headaches, lightheadedness, fevers, chills, diaphoresis. Past Medical History/Problem List Patient Active Problem List Diagnosis Code ??? 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 Basal cell carcinoma 2009 [facility]-back ??? Breast cancer Meds: No current facility-administered medications on file prior to encounter. Current Outpatient Medications on File Prior to Encounter Medication Sig Dispense Refill ??? aspirin EC 81 mg Tablet, Delayed Release (E.C.) Take 81 mg by mouth daily. ??? b complex vitamins Capsule Take 1 capsule by mouth daily. ??? CALCIUM CARBONATE-VITAMIN D3 ORAL Take by mouth. ??? pravastatin (Pravachol) 20 mg Tablet Take 20 mg by mouth daily. ??? albuteroL 90 mcg/actuation HFA Aerosol Inhaler ??? fluticasone propionate (FLONASE) 50 mcg/actuation [place], Suspension 1 spray daily. ??? Creon 24,000-76,000 -120,000 unit Capsule, Delayed Release(E.C.) TAKE 1 TO 2 CAPSULES BY MOUTH 3 TIMES DAILY WITH MEALS 750 capsule 3 ??? anastrozole (Arimidex) 1 mg Tablet Take 1 tablet by mouth daily. Start mid January 2020. 90 tablet 3 ??? Wixela Inhub 500-50 mcg/dose Disk with Device ??? omeprazole (PriLOSEC) 20 mg Capsule, Delayed Release(E.C.) ??? cholecalciferol, Vitamin D3, 1,000 unit Capsule Take 1,000 Units by mouth daily. ??? multivit,iron,minerals/lutein (CENTRUM SILVER ULTRA WOMEN'S ORAL) Take by mouth daily. ??? magnesium oxide 400 mg magnesium Capsule Take by mouth. ??? fish oil-omega-3 fatty acids 1,000 mg Capsule Take 2 g by mouth daily. ??? vitamin E 400 unit capsule Allergies: Allergies Allergen Reactions ??? House Dust Past Surgical History Past Surgical History: Procedure Laterality Date ??? CREATED BY INTERFACE BREAST BIOPSY / RT/MULTIPLE Procedure Date: 01/23/2001 ??? CREATED BY INTERFACE COLONOSCOPY (ENDO) Procedure Date: 12/24/2003 ??? CREATED BY INTERFACE Entered not Verified Procedure Date: 01/22/2010 ??? CREATED BY INTERFACE MODIFIED RADICAL MASTECTOMY / RT Procedure Date: 02/06/2001 ??? MAMMO STEREOTACTIC BIOPSY LEFT N/A 12/05/2019 Mammo Stereotactic Biopsy Left 12/05/2019 [facility]AMMOGRAP[facility] ??? MASTECTOMY Right with RT ??? PRO BX/REMV, LYMPH NODE, DEEP AXILL Left 12/20/2019 BIOPSY OR EXCISION OF LYMPH NODE(S), OPEN, DEEP AXILLARY NODE(S) (WRVU 6.43) performed by Susan Rivera MD at [facility] ??? PRO COLONOSCOPY, DIAGNOSTIC 01/07/2014 COLONOSCOPY, DIAGNOSTIC performed by Izzy Johnson MD at [facility] ENDOSCOPY ??? PRO ENDOSCOPIC US EXAM, ESOPH N/A 11/15/2019 UPPER EUS- ENDOSCOPIC ULTRASOUND performed by Ralf Urrutia MD at [facility] ??? PRO INTRAOP SENTINEL LYMPH ID W/DYE INJECTION Left 12/20/2019 INTRAOPERATIVE ID (MAPPING) SENTINEL LYMPH NODE,INCLUDES INJECTION (WRVU 2.5) performed by Susan Rivera MD at [facility] ??? PRO MASTECTOMY, SIMPLE, COMPLETE Left 12/20/2019 MASTECTOMY, SIMPLE, COMPLETE (WRVU 15.85) performed by Susan Rivera MD at [facility] ??? PRO OMENTAL FLAP, INTRA-ABDOMINAL 03/23/2020 @OMENTAL FLAP, INTRA-ABDOMINAL (WRVU 6.54) performed by Davian Carolina MD at [facility] ??? PRO UNLISTED PX PNCRS N/A 03/23/2020 ROBOTIC PANCREATECTOMY,WHIPPLE, PARTIAL GASTRECTOMY W/ PANCREATOJEJUNOSTOMY performed by Davian Carolina MD at [facility] Family History: Siblings: Sister with breast cancer, brother with ASCVD Social History: Tobacco: None Etoh: Did consume 2-3 ETOh beverages a day. Stopped drinking in September 2019 Illicits: None Vitals: Last value Range last 24 hrs Temperature Temp: 36.8 ??C (98.2 ??F) Temp: [36.8 ??C (98.2 ??F)-37.2 ??C (99 ??F)] Heart Rate Heart Rate: 77 Heart Rate: [70-77] Blood Pressure BP: (!) 168/99 BP: (168-188)/(94-101) Respiratory Rate Resp: 16 Resp: [16-18] SpO2 SpO2: 93 % SpO2: [93 %-95 %] I/O last 3 completed shifts: In: 3025.3 [P.O.:840; I.V.:363.3] Out: 3175 [Urine:3175] Examination: General: Pleasant, alert, appropriate, in NAD. HEENT: EOMI, nonicteric. Oropharynx clear w/o erythema, plaques or exudates or other lesions. No thrush; MMMs Neck: No LAD. No JVD. Cardiac: Normal S1 and S2, Regular rate and rhythm; No murmurs noted. Respiratory: Nonlabored. Clear to auscultation bilaterally; No wheezes or crackles. Abd: + BS; tender to palpation. Well-healed midline scar. RUQ ostomy site that is draining well with no surrounding erythema. Ext: No edema, cyanosis, clubbing. Neuro: II-XII grossly intact. Alert and orientated, no-focal deficits, sensation intact to crude touch, motor strength 5/5 throughout Skin: No rashs, no lesions, no petechiae Laboratory: CBC: Recent Labs 03/30/20 0120 03/29/20 0120 03/28/20 0145 WBC 10.4* 6.8 6.9 HGB 12.0 11.3* 11.3* PLATELET 231 176 205 Chemistry: Recent Labs 03/30/20 0120 03/29/20 0230 03/28/20 0145 03/27/20 0320 03/26/20 0145 NA 135 139 139 139 139 K 3.7 3.6 3.7 3.8 3.4* CL 98 104 103 101 98 CO2 28 28 27 27 29 BUN 15 18 17 12 6* CREATININE 0.40* 0.40* 0.46* 0.49* 0.54* GLUCOSE -- 163 -- 73 131 Recent Labs 03/30/20 01203/29/20 0230 03/28/20 0145 CALCIUM 8.2* 7.9* 8.4* MAGNESIUM 0.83 0.86 0.87 PHOS 3.3 3.0 2.9 LFT's: Recent Labs 03/27/20 0320 03/26/20 0145 03/25/20 0155 BILITOT 0.4 0.6 0.6 ALBUMIN 3.2 3.3 3.1* ALKPHOS 58 60 58 ALT 160* 240* 170* AST 77* 166* 149* Microbiology: No results for input(s): URINECULTURE in the last 720 hours. Recent Labs 03/23/20 1346 GRAMSTAIN Cytocentrifuge Gram Stain performed Neutrophils seen No microorganisms seen. BFCX No growth No results for input(s): BLOODCX in the last 720 hours. Diagnostic Studies: CT Angiogram Abdomen and Pelvis 03/26/2020 IMPRESSION ?? 1. Normal appearance of celiac axis and its branches. No evidence of aneurysm or pseudoaneurysm. 2. Post Whipple procedure with expected postoperative changes. 3. Bilateral pleural effusions with LEFT basilar focal atelectasis ?? Assessment: Linda Abel is a 74 y.o. 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 The Medicine service has been consulted for management of hypertension. Given her history of essential hypertension and acute pain, she likely had an acute elevation of her BP on a baseline of hypertension. Given the chronicity and her lack of alarm symptoms indicating hypertensive urgency, there is no indication for acute BP lowering with hydralazine or labetolol. We agree with the initiation of HCTZ. As she proceeds out of her post-operative course, we will continue to monitor her blood pressure today. If she remains above her JNC-8 target of >150/90, we can start a second antihypertensive agent with an JT-I. Regarding her hyperglycemia, with her HbA1c of 5.8, it is not likely chronic. I recommend sliding scale insulin as she weans off of TPN. #Essential HTN - HCTZ 25mg Qday - 5mg lisinopril if BP remains above 150/90 #Hyperglycemia - HbA1c 5.8 - Continue SSI - Likely from post-operative pain as well as TPN Case was discussed with medicine consult attending, Nataly Leggett MD. X Consult service will continue to follow patient. Recommendations are above, please page if further consultation required. Jairon Maria MD Internal Medicine, PGY3 [place] Pager # [phone] Associated attestation - Nataly Leggett MD - 03/31/2020 2:49 PM EST Attending Staff New Consult Documentation We have been asked to see this patient in consultation by Dr. Davian Carolina from General surgery. Please see Dr. Jairon Maria's note for details of the patient history of presentation and data. I have discussed, reviewed and agree with the documented history with ROS, social and family history, medication list, physical findings, labs/studies, Assessment and Plan of care. I have examined the patient myself and reviewed all labs and studies personally. * Plan of Care - Ness Cummings RN - 03/30/2020 12:48 AM EST OUTCOME EVALUATION NOTE: OUTCOME SUMMARY: Patient resting between care. BP continues to be elevated. Labetalol given x1 for systolic greater than 180. Pain 3/10; managed with scheduled meds, and PRN Toradol. Zofran given for nausea, with good effect. [place] UOP via toilet. No BM this shift. Will continue to monitor. PLAN MOVING FORWARD: Pain management, DC TPN, D/C Monday, Promote activity INDIVIDUALIZED FALL PREVENTION INTERVENTIONS: High Risk Patient-specific fall risk factors per assessment: [current deficits]: Recent surgery, TPN, generalized weakness Assistance [level of assistance required for transfers and ambulation]: SBA with FWW Supervision [direct monitoring required during toileting and ADLs]: Eyes on Surveillance [continuous indirect monitoring]: Bed/chair alarm, masimo, hourly rounding, room near unit station, NKE at bedside, environmental modifications (clutter-free environment, tubing secured,bed low, lighting adjusted, nonskid socks when OOB, bed wheels locked, call light with in reach, upper side rails x2, ID bands on) Patient-specific fall prevention interventions for sensory deficits provided, if applicable: [X] Yes wears glasses CPG GOAL OUTCOME EVALUATION: * Plan of Care - Mervin Grimes RN - 03/29/2020 2:48 AM EST OUTCOME EVALUATION NOTE: ?? OUTCOME SUMMARY: Pt pain 2-3/10 pain today, managed well with FENCE GATE ASSEMBLER. Pt tolerating clears w/o nausea or emesis. AUOP, no BM this shift. Pt bps 160-170s/90-100s overnight, md aware, given 2x labetalol per md orders. Pt resting between care. ?? PLAN MOVING FORWARD: Manage pain; wean FENCE GATE ASSEMBLER Monitor I&Os Encourage OOB, ambulation ?? INDIVIDUALIZED FALL PREVENTION INTERVENTIONS: High Fall Risk ?? Patient-specific fall risk factors per assessment: [current deficits]:?? 74 yr old w/ recent surgery, PIV, pain, generalized weakness, unfamiliar environment, use of ambulatory aid ?? Assistance [level of assistance required for transfers and ambulation]:?SBA with FWW ?? Supervision [direct monitoring required during toileting and ADLs]:?Eyes on ?? Surveillance [continuous indirect monitoring]:?Nurse knowledge exchange, purposeful rounding, environmental modifications (waste basket is out of the path and the IV tubing and cords are free fromthe floor), fall reduction program in place, lighting adjusted for task, bed in low position, wheels locked, side rails up (x2), nonskid socks worn OOB, no restraints, call light is within reach at all times, assistive device, bed/chair alarm, [place] ID band on ?? Patient-specific fall prevention interventions for sensory deficits provided, if applicable:?[X]N/A ?? CPG GOAL OUTCOME EVALUATION: * Plan of Care - Wendy Ruiz RN - 03/28/2020 4:37 PM EST OUTCOME EVALUATION NOTE: OUTCOME SUMMARY: ?? Pt reporting 3/10 pain today, managed well with FENCE GATE ASSEMBLER. NGT and KHRIS drain removed this morning per MD Kang at bedside. Diet advanced to clears, pt tolerating well, denies nausea. Adequate UOP up to toilet, no BM this shift but still passing flatus. Pt has been hypertensive today in the 170's, other VSS on RA. Pt ambulating in hammer x3+ with high motivation. Resting well between care. ? PLAN MOVING FORWARD: ?? Manage pain; wean FENCE GATE ASSEMBLER OOB activities; ROBF ?? INDIVIDUALIZED FALL PREVENTION INTERVENTIONS: High Fall Risk ?? Patient-specific fall risk factors per assessment: [current deficits]:?? Recent surgery, medicationeffects, drains/devices, intermittent pain, generalized weakness, IVF? Assistance [level of assistance required for transfers and ambulation]:?SBA with FWW ?? Supervision [direct monitoring required during toileting and ADLs]:?Eyes on ?? Surveillance [continuous indirect monitoring]:?Yes, Bed/Chair alarm, environmental modification (floor free of clutter, tubing secured), bed in low position, lighting adjusted for task/safety, nonskid slippers when out of bed, wheels locked, call light in reach, upper side-rails raised X2, ID bands on. ?? Patient-specific fall prevention interventions for sensory deficits provided, if applicable:?[X]N/A CPG GOAL OUTCOME EVALUATION: * Plan of Care - China Mendez RN - 03/28/2020 5:09 AM EST Problem: Patient Care Overview Goal: Plan of Care Review Outcome: Ongoing (Interventions Implemented as Appropriate) 03/24/20 1801 03/27/202044 Coping/Psychosocial Plan Of Care Reviewed With -- patient Plan of Care Review Progress progress toward functional goals as expected -- OUTCOME EVALUATION NOTE: OUTCOME SUMMARY: ?? Pain well controlled with FENCE GATE ASSEMBLER this shift. VSS.Tolerating sips &??chips diet, no complaints of nausea and no emesis. TPN infusing per MD orders (See MAR). NG tube remains to LCWS with green output. KHRIS drain with serosanguineous output, dressing changed x2. Voiding adequate amounts of urine. No BM this shift, patient now passing flatus. Rested well throughout the night. ?? PLAN MOVING FORWARD: ?? Monitor/manage pain, I&O's, encourage OOB, encourage ambulation, NG tube to LCWS, continue withcurrent plan ?? INDIVIDUALIZED FALL PREVENTION INTERVENTIONS: High Fall Risk ?? Patient-specific fall risk factors per assessment: [current deficits]:?PICC, FENCE GATE ASSEMBLER, Pain, recent surgery, tubes/drains, generalized weakness ? Assistance [level of assistance required for transfers and ambulation]:?SBA with FWW ?? Supervision [direct monitoring required during toileting and ADLs]:?Hands on ?? Surveillance [continuous indirect monitoring]:?Yes, Bed/Chair alarm, environmental modification (floor free of clutter, tubing secured), bed in low position, lighting adjusted for task/safety, nonskid slippers when out of bed, wheels locked, call light in reach, upper side-rails raised X2, ID bands on. ?? Patient-specific fall prevention interventions for sensory deficits provided, if applicable:?[X]N/A ? CPG GOAL OUTCOME EVALUATION:?? Goal: Individualization & Mutuality Outcome: Ongoing (Interventions Implemented as Appropriate) 03/24/201814 Mutuality/Individual Preferences What Anxieties, Fears or Concerns Do You Have About Your Health or Care? I want everything to go okay What Questions Do You Have About Your Health or Care? None at this time What Information Would Help Us Give You More Personalized Care? None at this time Goal: Fall Prevention-Safe Patient Handling Outcome: Ongoing (Interventions Implemented as Appropriate) 03/27/202044 Daily Care Interventions Self-Care Promotion BADL personal routines maintained;independence encouraged;BADL personal objectswithin reach Mendez Fall Risk History of Falling 0 Secondary Diagnosis 15 Ambulatory Aids 15 Intravenous Therapy/Heparin/Saline Lock 20 Gait/Transferring 0 Mental Status 0 Score 50 OTHER Mendez Fall Risk High Restraint Interventions Safety Promotion/Fall Prevention activity supervised;fall prevention program maintained;nonskid shoes/slippers when out of bed;safety round/check completed Positioning Body Position independent Activity Activity Type activity adjusted per tolerance;activity encouraged Activity Assistance Provided assistance, stand-by Assistive Device Utilized front-wheel walker Goal: Infection Control Outcome: Ongoing (Interventions Implemented as Appropriate) 03/27/202044 Safety Interventions Isolation Precautions standard precautions maintained Infection Prevention single patient room provided;rest/sleep promoted;environmental surveillance performed Coping Strategies Supportive Measures active listening utilized;decision-making supported;goal setting facilitated;positive reinforcement provided;problem solving facilitated;relaxation techniques promoted;self-care encouraged;self- responsibility promoted;verbalization of feelings encouraged;self-reflection promoted Goal: Discharge Needs Assessment Outcome: Ongoing (Interventions Implemented as Appropriate) 03/26/20 045 Discharge Needs Assessment Discharge Disposition still a patient Goal: Interdisciplinary Rounds/Family Conf Outcome: Ongoing (Interventions Implemented as Appropriate) 03/26/20 045 Interdisciplinary Rounds/Family Conf Participants patient;nursing * Plan of Care - Wendy Ruiz RN - 03/27/2020 4:23 PM EST OUTCOME EVALUATION NOTE: OUTCOME SUMMARY: ?? Pt denied pain this shift, reporting good management with FENCE GATE ASSEMBLER. NGT clamped this morning by MD Carolina~1000, unclamped at 1600 with 200 mLs output, dark green and thin. Moderate amounts of serosanguinous drainage from KHRIS drain. Pt has been tolerating sips and chips diet well, denies nausea. Pt was upto walk in hammer today x2, worked with PT, up to chair x1. Adequate amounts of UOP, no BM or flatus this shift. Pt reporting to feel overall 'more tired' today. Will continue to monitor. ?? PLAN MOVING FORWARD: ?? Manage pain; wean FENCE GATE ASSEMBLER OOB activities; ROBF ?? INDIVIDUALIZED FALL PREVENTION INTERVENTIONS: High Fall Risk ?? Patient-specific fall risk factors per assessment: [current deficits]:?? Recent surgery, medicationeffects, drains/devices, intermittent pain, generalized weakness, IVF ? Assistance [level of assistance required for transfers and ambulation]:?SBA with FWW ?? Supervision [direct monitoring required during toileting and ADLs]:?Eyes on ?? Surveillance [continuous indirect monitoring]:?Yes, Bed/Chair alarm, environmental modification (floor free of clutter, tubing secured), bed in low position, lighting adjusted for task/safety, nonskid slippers when out of bed, wheels locked, call light in reach, upper side-rails raised X2, ID bands on. ?? Patient-specific fall prevention interventions for sensory deficits provided, if applicable:?[X]N/A ? CPG GOAL OUTCOME EVALUATION: * Plan of Care - China Mendez RN - 03/27/2020 4:02 AM EST Problem: Patient Care Overview Goal: Plan of Care Review Outcome: Ongoing (Interventions Implemented as Appropriate) 03/24/20 1801 03/26/202029 Coping/Psychosocial Plan Of Care Reviewed With -- patient Plan of Care Review Progress progress toward functional goals as expected -- OUTCOME EVALUATION NOTE: OUTCOME SUMMARY: ?? Pain well controlled with FENCE GATE ASSEMBLER this shift. VSS.Tolerating sips &??chips diet, no complaints of nausea and no emesis. NG tube remains to LCWS with green output. KHRIS drain with serosanguineous output. Voiding adequate amounts of urine. No BM this shift. Ambulated in hammer x1 with staff. Rested well between care. ?? PLAN MOVING FORWARD: ?? Monitor/manage pain, I&O's, encourage OOB, encourage ambulation, NG tube to LCWS, continue withcurrent plan ?? INDIVIDUALIZED FALL PREVENTION INTERVENTIONS: High Fall Risk ?? Patient-specific fall risk factors per assessment: [current deficits]:?PICC, FENCE GATE ASSEMBLER, Pain, recent surgery, tubes/drains, generalized weakness ? Assistance [level of assistance required for transfers and ambulation]:?1 Assist with FWW ?? Supervision [direct monitoring required during toileting and ADLs]:?Hands on ?? Surveillance [continuous indirect monitoring]:?Yes, Bed/Chair alarm, environmental modification (floor free of clutter, tubing secured), bed in low position, lighting adjusted for task/safety, nonskid slippers when out of bed, wheels locked, call light in reach, upper side-rails raised X2, ID bands on. ?? Patient-specific fall prevention interventions for sensory deficits provided, if applicable:?[X]N/A ? CPG GOAL OUTCOME EVALUATION:? Goal: Individualization & Mutuality Outcome: Ongoing (Interventions Implemented as Appropriate) 03/24/201814 Mutuality/Individual Preferences What Anxieties, Fears or Concerns Do You Have About Your Health or Care? I want everything to go okay What Questions Do You Have About Your Health or Care? None at this time What Information Would Help Us Give You More Personalized Care? None at this time Goal: Fall Prevention-Safe Patient Handling Outcome: Ongoing (Interventions Implemented as Appropriate) 03/26/202029 Daily Care Interventions Self-Care Promotion independence encouraged Mendez Fall Risk History of Falling 0 Secondary Diagnosis 15 Ambulatory Aids 15 Intravenous Therapy/Heparin/Saline Lock 20 Gait/Transferring 10 Mental Status 0 Score 60 OTHER Mendez Fall Risk High Restraint Interventions Safety Promotion/Fall Prevention activity supervised;fall prevention program maintained;nonskid shoes/slippers when out of bed;safety round/check completed Positioning Body Position independent Activity Activity Type activity adjusted per tolerance;activity encouraged Activity Assistance Provided assistance, stand-by Assistive Device Utilized front-wheel walker Goal: Infection Control Outcome: Ongoing (Interventions Implemented as Appropriate) 03/26/202029 Safety Interventions Isolation Precautions standard precautions maintained Infection Prevention single patient room provided;rest/sleep promoted;environmental surveillance performed Coping Strategies Supportive Measures active listening utilized;decision-making supported;goal setting facilitated;positive reinforcement provided;problem solving facilitated;relaxation techniques promoted;self-care encouraged;self-reflection promoted;self-responsibility promoted;verbalization of feelings encouraged Goal: Discharge Needs Assessment Outcome: Ongoing (Interventions Implemented as Appropriate) 03/26/20449 Discharge Needs Assessment Discharge Disposition still a patient Goal: Interdisciplinary Rounds/Family Conf Outcome: Ongoing (Interventions Implemented as Appropriate) 03/26/20449 Interdisciplinary Rounds/Family Conf Participants patient;nursing * Plan of Care - Wendy Ruiz RN - 03/26/2020 3:44 PM EST OUTCOME EVALUATION NOTE: OUTCOME SUMMARY: ?? Pt reported minimal pain this shift, managed well with FENCE GATE ASSEMBLER. Pt went to CT scan this morning, see results. NGT continues on LCWS with moderate amounts of dark green output. Moderate amounts of serosanguinous drainage from KHRIS drain. Pt has been tolerating sips and chips diet well, denies nausea. Pt was up to walk in hammer today x1. Adequate amounts of UOP, no BM this shift, endorses belching, not passing flatus. O2 maintained on intermittent use of 1 L NC. Resting well between care. ?? PLAN MOVING FORWARD: ?? Manage pain; wean FENCE GATE ASSEMBLER OOB activities; ROBF Wean O2 ?? INDIVIDUALIZED FALL PREVENTION INTERVENTIONS: High Fall Risk ?? Patient-specific fall risk factors per assessment: [current deficits]:?? Recent surgery, medicationeffects, drains/devices, intermittent pain, generalized weakness, IVF ? Assistance [level of assistance required for transfers and ambulation]:?SBA with FWW ?? Supervision [direct monitoring required during toileting and ADLs]:?Eyes on ?? Surveillance [continuous indirect monitoring]:?Yes, Bed/Chair alarm, environmental modification (floor free of clutter, tubing secured), bed in low position, lighting adjusted for task/safety, nonskid slippers when out of bed, wheels locked, call light in reach, upper side-rails raised X2, ID bands on. ?? Patient-specific fall prevention interventions for sensory deficits provided, if applicable:?[X]N/A ?? CPG GOAL OUTCOME EVALUATION: * Plan of Care - China Mendez RN - 03/26/2020 4:53 AM EST Problem: Patient Care Overview Goal: Plan of Care Review Outcome: Ongoing (Interventions Implemented as Appropriate) 03/24/20 18003/25/201999 Coping/Psychosocial Plan Of Care Reviewed With -- patient Plan of Care Review Progress progress toward functional goals as expected -- OUTCOME EVALUATION NOTE: OUTCOME SUMMARY: Pain well controlled with FENCE GATE ASSEMBLER this shift. VSS.Tolerating sips & chips diet, no complaints of nausea and no emesis. NG tube remains to LCWS with green output. KHRIS drain with serosanguineous output.Voiding adequate amounts of urine. No BM this shift. Rested well between care. PLAN MOVING FORWARD: ?? Monitor/manage pain, I&O's, encourage OOB, encourage ambulation, NG tube to LCWS, continue withcurrent plan ?? INDIVIDUALIZED FALL PREVENTION INTERVENTIONS: High Fall Risk ?? Patient-specific fall risk factors per assessment: [current deficits]: PICC, FENCE GATE ASSEMBLER, Pain, recent surgery, tubes/drains, generalized weakness ?? Assistance [level of assistance required for transfers and ambulation]: 1 Assist with FWW ?? Supervision [direct monitoring required during toileting and ADLs]: Hands on ?? Surveillance [continuous indirect monitoring]: Yes, Bed/Chair alarm, environmental modification (floor free of clutter, tubing secured), bed in low position, lighting adjusted for task/safety, nonskid slippers when out of bed, wheels locked, call light in reach, upper side-rails raised X2, ID bandson. ?? Patient-specific fall prevention interventions for sensory deficits provided, if applicable: [X] N/A ? CPG GOAL OUTCOME EVALUATION: Goal: Individualization & Mutuality Outcome: Ongoing (Interventions Implemented as Appropriate) 03/24/201814 Mutuality/Individual Preferences What Anxieties, Fears or Concerns Do You Have About Your Health or Care? I want everything to go okay What Questions Do You Have About Your Health or Care? None at this time What Information Would Help Us Give You More Personalized Care? None at this time Goal: Fall Prevention-Safe Patient Handling Outcome: Ongoing (Interventions Implemented as Appropriate) 03/25/201999 Daily Care Interventions Self-Care Promotion independence encouraged Andrea Fall Risk History of Falling 0 Secondary Diagnosis 15 Ambulatory Aids 15 Intravenous Therapy/Heparin/Saline Lock 20 Gait/Transferring 10 Mental Status 0 Score 60 OTHER Andrea Fall Risk High Restraint Interventions Safety Promotion/Fall Prevention activity supervised;fall prevention program maintained;nonskid shoes/slippers when out of bed;safety round/check completed Positioning Body Position independent Activity Activity Type ambulated to bathroom Activity Assistance Provided assistance, stand-by Assistive Device Utilized front-wheel walker Goal: Infection Control Outcome: Ongoing (Interventions Implemented as Appropriate) 03/25/201999 Safety Interventions Isolation Precautions standard precautions maintained Infection Prevention rest/sleep promoted;single patient room provided;environmental surveillance performed Coping Strategies Supportive Measures active listening utilized;goal setting facilitated;decision- making supported;self-care encouraged;relaxation techniques promoted;problem solving facilitated;positive reinforcementprovided;self-responsibility promoted;verbalization of feelings encouraged;self-reflection promoted Goal: Discharge Needs Assessment Outcome: Ongoing (Interventions Implemented as Appropriate) 03/26/20449 Discharge Needs Assessment Discharge Disposition still a patient Goal: Interdisciplinary Rounds/Family Conf Outcome: Ongoing (Interventions Implemented as Appropriate) 03/26/20449 Interdisciplinary Rounds/Family Conf Participants patient;nursing * Consult Note - Priscila Lennon RN - 03/25/2020 9:11 PM EST Images from the original note were not included. Requested to assess PICC line. Line was placed yesterday and RN is concerned regarding bruising at insertion site. Pt is currently on anticoagulant therapy. Please see attached picture as baseline for current ecchymosis of site. * Plan of Care - China Mendez RN - 03/25/2020 5:04 AM EST Problem: Patient Care Overview Goal: Plan of Care Review Outcome: Ongoing (Interventions Implemented as Appropriate) 03/24/20 1801 03/24/202004 Coping/Psychosocial Plan Of Care Reviewed With -- patient Plan of Care Review Progress progress toward functional goals as expected -- OUTCOME EVALUATION NOTE: OUTCOME SUMMARY: Pain well controlled with FENCE GATE ASSEMBLER. Patient tachycardic in the 110's this shift, otherwise VSS. Tolerating sips & chips diet, no complaints of nausea and no emesis. NG tube remains to LCWS with light green output. KHRIS drain with serosanguineous output. Calderón catheter with adequate urine output. No BMthis shift. Patient ambulated in hammer x1 with staff. Rested well between care. PLAN MOVING FORWARD: Monitor/manage pain, I&O's, encourage OOB, encourage ambulation, NG tube to LCWS, continue withcurrent plan INDIVIDUALIZED FALL PREVENTION INTERVENTIONS: High Fall Risk Patient-specific fall risk factors per assessment: [current deficits]: PICC, FENCE GATE ASSEMBLER, Pain, recent surgery, tubes/drains, generalized weakness Assistance [level of assistance required for transfers and ambulation]: 1 Assist with FWW Supervision [direct monitoring required during toileting and ADLs]: Hands on Surveillance [continuous indirect monitoring]: Yes, Bed/Chair alarm, environmental modification (floor free of clutter, tubing secured), bed in low position, lighting adjusted for task/safety, nonskid slippers when out of bed, wheels locked, call light in reach, upper side-rails raised X2, ID bandson. Patient-specific fall prevention interventions for sensory deficits provided, if applicable: [X] N/A CPG GOAL OUTCOME EVALUATION: Goal: Individualization & Mutuality Outcome: Ongoing (Interventions Implemented as Appropriate) 03/24/20 1815 Mutuality/Individual Preferences What Anxieties, Fears or Concerns Do You Have About Your Health or Care? I want everything to go okay What Questions Do You Have About Your Health or Care? None at this time What Information Would Help Us Give You More Personalized Care? None at this time Goal: Fall Prevention-Safe Patient Handling Outcome: Ongoing (Interventions Implemented as Appropriate) 03/24/20200403/25/207 03/25/20 0459 Daily Care Interventions Self-Care Promotion -- -- independence encouraged Mendez Fall Risk History of Falling 0 -- -- Secondary Diagnosis 15 -- -- Ambulatory Aids 15 -- -- Intravenous Therapy/Heparin/Saline Lock 20 -- -- Gait/Transferring 10 -- -- Mental Status 0 -- -- Score 60 -- -- OTHER Andrea Fall Risk High -- -- Restraint Interventions Safety Promotion/Fall Prevention activity supervised;fall prevention program maintained;nonskid shoes/slippers when out of bed;safety round/check completed -- -- Positioning Body Position independent -- -- Activity Activity Type -- ambulated in hammer -- Activity Assistance Provided -- assistance, stand-by -- Assistive Device Utilized -- front-wheel walker -- Goal: Infection Control Outcome: Ongoing (Interventions Implemented as Appropriate) 03/24/202004 Safety Interventions Isolation Precautions standard precautions maintained Infection Prevention rest/sleep promoted;environmental surveillance performed Coping Strategies Supportive Measures active listening utilized;goal setting facilitated;decision- making supported;positive reinforcement provided;relaxation techniques promoted;problem solving facilitated;self-reflection promoted;self- responsibility promoted;verbalization of feelings encouraged;self-care encouraged Goal: Discharge Needs Assessment Outcome: Ongoing (Interventions Implemented as Appropriate) 03/25/20458 Discharge Needs Assessment Discharge Disposition still a patient Goal: Interdisciplinary Rounds/Family Conf Outcome: Ongoing (Interventions Implemented as Appropriate) 03/25/20458 Interdisciplinary Rounds/Family Conf Participants patient;nursing * Plan of Care - Beatriz Singh RN - 03/24/2020 6:06 PM EST Problem: Patient Care Overview Goal: Plan of Care Review Outcome: Ongoing (Interventions Implemented as Appropriate) 03/24/20 1801 Coping/Psychosocial Plan Of Care Reviewed With patient Plan of Care Review Progress progress toward functional goals as expected OUTCOME EVALUATION NOTE: OUTCOME SUMMARY: Pt A&Ox4 in AM with intermittent confusion in afternoon see prior note, VSS on 2L NC, denies nausea, chest pain, SOB, NGT to LCWS, flushed per order, KHRIS drain leaky at site, re-dressed, serosanguinous, calderón in place draining CYU adequately, -flatus/-BM, periorbital swelling noted, FENCE GATE ASSEMBLER controlling pain, down for PICC line d/t inadequate IV access/inability to draw labs d/t no IV/BP on R arm, double lumen PICC in place, C/D/I, MIVF, worked with PT/OT, pt resting comfortably between nursing care, bed in lowest position, call light within reach PLAN MOVING FORWARD: Increase mobilization Pain control/wean FENCE GATE ASSEMBLER Increase diet DC planning INDIVIDUALIZED FALL PREVENTION INTERVENTIONS: Patient-specific fall risk factors per assessment: [current deficits]: Impaired mobility, recent post-op, LDAs, narcotic medication, hospital environment Assistance [level of assistance required for transfers and ambulation]: 1 person assist with FWW Supervision [direct monitoring required during toileting and ADLs]: Eyes on hands on Surveillance [continuous indirect monitoring]: Masimo, purposeful hourly rounding Patient-specific fall prevention interventions for sensory deficits provided, if applicable: [X] N/A * Plan of Care - Byron Branham RN - 03/24/2020 4:56 PM EST Problem: Health Knowledge, Opportunity to Enhance (Adult,NICU,[place],Obstetrics,Pediatric) Goal: Knowledgeable about Health Subject/Topic Patient will demonstrate the desired outcomes by discharge/transition of care. Outcome: Outcome (s) achieved Date Met: 03/24/20 Peripherally Inserted Central Catheter (PICC) Teaching Sheet Peripherally inserted central catheters ([id number]) (PICC) are used when you need IV (intravenous) medicines and fluids. A catheter is a small flexible plastic tube. The catheter is put in througha vein under your skin. A vein is a tube inside your body that carries blood from the body to the heart. The catheter is usually put into a vein on the inside of your upper arm. Then it is threaded up this vein and ends in the blood vessel near your heart. The PICC catheter may be used for taking blood for laboratory tests. You may also get IV fluids andmedicines quickly and easily. Having the catheter may keep your arm from being stuck many times with a needle. The catheter will have 1-3 small tails (tubes) coming from your arm where the catheter was put in. Why do I need a PICC line or midline catheter? PICC lines are used for long term care phlebotomist treatments. PICC lines may be used for up to a year. They areoften put in to give you IV medicines at home. You may need a PICC catheter because caregivers cannot use smaller veins in your body. Smaller veins may be damaged, or they may have poor blood flow. ??? Catheters are also used in case of emergency when you would need medicines or fluids very quickly. ??? The following are medicines and treatments you may get when you have a PICC line. ? Antibiotics. These are medicines to prevent infection. ? Frequent blood sample collection. ? IV medicines that would make your smaller veins sore or damaged. ? Receiving IV fluids for a long period of time. ? Pain medicine. ? Total Parenteral Nutrition: This is also called TPN. TPN is a special liquid food that goes directly into your veins. ? Blood ? Chemotherapy (Medicine for cancer) What are the benefits of having a PICC line put in? Having a PICC line may keep your arm from being stuck many times with a needle to draw blood orstart an IV (intravenous catheter) . ??? Through a PICC catheter, you may have blood taken for tests. You may also get IV fluids and medicines quickly and easily. ??? Small veins can be damaged or irritated by certain drugs or nutritional solutions. A PICC line helps to decrease vein irritation from antibiotics, IV pain drugs, or IV cancer drugs. ??? A PICC line can be left in place when you go home. If you go home with a PICC line in place, home care can be set up via the nurse Social Work Professor to help you. What are possible complications of having a PICC line put in? Some possible complications are: ??? bruising, swelling, or infection in the arm with the PICC line ??? mal-positioned catheter (catheter tip in wrong place) ??? occlusion (blocked catheter) ??? mechanical phlebitis (vein irritation) and thrombosis (clot) Your doctor is the person you should talk to if you have questions about what would happen if you do not choose to have a PICC line put in. Your doctor can talk to you about other choices you may have. What should I expect when it is put in? A written consent that gives your ok to have it put in needs to be signed after you understand thatyou are going to have a PICC put in, and all your questions about the procedure have been answered to your satisfaction. This is a safety feature that the hospital practices before doing procedures. An experienced nurse who has been through special training and education will be putting this catheter in. The procedure is done in a specially equipped room in Interventional Radiology on the third floor. The PICC nurse will first talk to you about any questions that you may have. The PICC nurse will explain to you what is going to be done before starting. Once you arrive in the procedure room in Interventional Radiology, the PICC nurse will then set up for the procedure. She will unwrap the sterile kit and open the needed supplies. A gown and mask andgloves will be worn while putting it in. An ultrasound machine will be used to help guide the catheter in the right place. This machine uses a handle with sound waves to find the vein. The area on your arm where the catheter will be put in is then numbed with a medicine put under your skin with a tiny needle. The nurse will then put in the catheter using fluoroscopy (a type of x-ray) as a guide. Once the catheter is in your vein, it will be threaded up your arm to the area beforeyour heart. While it is being threaded, you may be asked to turn your head. When the catheter is in, the nurse will place a small dressing on the site along with a little alvarado which will help keep the catheter in place. After the procedure is done, a radiologist (doctor in x-ray department) will look at your x-ray to make sure that the end of the catheter is in proper position to give your fluids and/or medications. What should I expect in the care of my PICC? A dressing that is specially made to prevent infections will be put on. After this, the dressing will only be changed once a week unless it needs it sooner. If you go home with the catheter in, you may take a shower as long as you keep the site dry. You can do this by wearing a specially fitted PICC protector that will be provided to you before dischargefrom the hospital. The dressing at the site must be kept clean and dry. It is important that you watch for signs of infection at the site. Your healthcare provider should be notified if these occur: ??? Redness ??? Swelling ??? Pus ??? Pain at the site Other reasons to notify your healthcare provider are: ??? Catheter becomes partially or totally removed ??? Unable to infuse medication/fluid ??? Unable to draw back blood from the catheter. This may be an early sign that a clot is forming on the end of the catheter. If this occurs, a medicine called Cathflo may be used to dissolve this clot. Ask the PICC nurse or your doctor, any questions you may have so you feel secure in consenting to having a PICC line. References: Vascular Access Device Selection, Insertion, and Management, [employer] 01/19. A Review of the Efficacy, Safety, Use, and Administration of Cathflo, [employer] 2006 * Plan of Care - Patricia Jordan, PT - 03/24/2020 2:47 PM EST Physical Therapy Evaluation Patient profile: Linda Abel is a 74 y.o. female with PMH main duct IPMN, now 1 Day Post-Op s/p robotic whipple. ?? Patient with the following active problems: Past Medical History: Diagnosis Date ??? Basal cell carcinoma 2009 [facility]-back ??? Breast cancer Past Surgical History: Procedure Laterality Date ??? CREATED BY INTERFACE BREAST BIOPSY / RT/MULTIPLE Procedure Date: 01/23/2001 ??? CREATED BY INTERFACE COLONOSCOPY (ENDO) Procedure Date: 12/24/2003 ??? CREATED BY INTERFACE Entered not Verified Procedure Date: 01/22/2010 ??? CREATED BY INTERFACE MODIFIED RADICAL MASTECTOMY / RT Procedure Date: 02/06/2001 ??? MAMMO STEREOTACTIC BIOPSY LEFT N/A 12/05/2019 Mammo Stereotactic Biopsy Left 12/05/2019 [facility]AMMOGR[facility] ??? MASTECTOMY Right with RT ??? PRO BX/REMV, LYMPH NODE, DEEP AXILL Left 12/20/2019 BIOPSY OR EXCISION OF LYMPH NODE(S), OPEN, DEEP AXILLARY NODE(S) (WRVU 6.43) performed by Susan Rivera MD at [facility] ??? PRO COLONOSCOPY, DIAGNOSTIC 01/07/2014 COLONOSCOPY, DIAGNOSTIC performed by Izzy Johnson MD at [facility] ENDOSCOPY ??? PRO ENDOSCOPIC US EXAM, ESOPH N/A 11/15/2019 UPPER EUS- ENDOSCOPIC ULTRASOUND performed by Ralf Urrutia MD at [facility] ??? PRO INTRAOP SENTINEL LYMPH ID W/DYE INJECTION Left 12/20/2019 INTRAOPERATIVE ID (MAPPING) SENTINEL LYMPH NODE,INCLUDES INJECTION (WRVU 2.5) performed by Susan Rivera MD at [facility] ??? PRO MASTECTOMY, SIMPLE, COMPLETE Left 12/20/2019 MASTECTOMY, SIMPLE, COMPLETE (WRVU 15.85) performed by Susan Rivera MD at [facility] Social History: Pt lives alone in a multi level home with 3 steps to enter. 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 Pt. to utilize min asst of 1 for transfers with nursing. Ambulate with FWW ?? Please encourage up to chair as able. ?? Pt encouraged to ambulate frequently with staff, getting into the bathroom for toileting and walking out in the hammer >/= 3 times daily as able. Subjective: ???Did Dr Carolina go home to rest before the surgery??? Oh, I'm back thinking like oliver, I already had surgery I double mask Objective: Pt seen for evaluation today. Pain: Pushed FENCE GATE ASSEMBLER x 1, abdominal discomfort, Vital Signs: SpO2: 95% on RA HR: 84 BP: 130/84 In sitting Mental Status: awake, willing to get up confused and redirectable, motivated Vision: Crepitus around eyes, decreased visual acuity, read clock far away but switched hands, unable to clearly read words on the board, wears reading glasses Skin: incisions, facial yasmine-orbital edema, h/x R mastectomy and L axillary lymph node dissection Musculoskeletal: ROM: decreased trunk flexion, extremities WFL Strength: WFL Sensation: denies sensory deficits, changes, LT intact in LEs Bed Mobility: Supine to Sit: min asst with HOB raised, rolling to the R Sit to Supine: stayed up in the chair Transfers: Sit to Stand: min asst to FWW Stand to Sit: vcs to reach back, good eccentric control, cues to exhale Bed to Chair: min asst of 1 Gait: Distance: ~75 ft Device used: FWW Level of assist: CGA assist and IV Pole management Gait mechanics: reduced lawanda, reduced step/stride length and cueing for unfamiliar environment Stairs: NT Balance: good balance sitting EOB, no lightheadedness, fair dynamic balance with gait w/FWW Therex: seated marching and ankle pumps prior to standing. Education: patient has been educated on Bed mobility, Transfers, Assistive device/technique, Exercise, Positioning, Safety , Precautions/protocol, Gait , Role of therapy, Balance and Discharge planning and needs reinforcement. to ensure understanding Patient status, treatment, and mobility recommendations discussed with nursing. Pt left reclined in cardiac chair with chair alarm on, call blanco within reach, all needs mets. RN updated. Assessment: Linda Abel was seen today for physical therapy evaluation. Pt presents with the following impairments: pain, integumentary integrity, ROM, balance , cognition, gait and locomotion, p.o intake and midline incision which are currently contributing to functional limitations. Pt was agreeable to mobilizing, needed frequent redirection and support for orientation and timing, pt was confused about the fact that she had already had surgery, asking lots of questions re: PICC and more surgery. Redirectable but frustrated with herself for being confused.Pt clearly prides herself on being independent and self sufiicient. Reassured pt and answered all questions, spoke with furnace charger re: private room when possible, as pt had difficulty conversations related to her roommateor hallway chatter.. Tolerated mobility with assist. Anticipated pt will progress as her confusion clears, expect pt will wean off FWW prior to discharge home. The pt would benefit from skilled therapy services while in the hospital to maximize functional abilities. Plan: Therapy Frequency: (P) 2-3 times/wk for therapy including bed mobility training, gait training, home exercise program, patient/family education, stair training and transfer training. Patient/family understand and agree with plan as stated above. Discharge Recommendations: Based on the current findings, when medically ready for hospital discharge: -Anticipated Discharge Disposition: (P) home with assist, home with home health -Discussed with RN Goals: To be achieved by 03/31: 1. Pt. to demonstrate knowledge of safety limitations and precautions and will appropriately request assistance for functional activities and to mobilize. 2. Pt. to demonstrate understanding of appropriate warm up exercises. 3. Pt. to perform bed mobility with modified independence. 4. Pt. to perform sit to stand transfers with supervision . 5. Pt. to ambulate 150 feet with supervision 6. Pt. to ambulate up/down FOS if needed for home discharge. 7. Family or caregiver to demonstrate understanding of therapeutic interventions to support the care of the patient. 2017 PT Evaluation Code Rationale: ?? Diagnosis & Pertinent Co-Morbidities, personal factors, and present illness affecting Plan of Care: (see above); Additional personal factors or co- morbidities that impact plan: ?? Total # of Factors: 0 1-2 3+ x ?? Examination of body system impairments, functional limitations and behaviors, and/or participation restrictions. Addressing 1-2 elements Addressing 3 + elements Addressing 4 + elements x ?? Clinical presentation: See assessment above. Stable/Uncomplicated Evolving/Fluctuating Symptoms Unstable/Unpredictable x ?? Clinical decision making of low complexity based on pt's functional performance as outlined in this evaluation. Time IN / OUT: *2:22-2:47 Total Evaluation Minutes, Physical Therapy: (P) 25 PATRICIA JORDAN, PT Pager: [phone] Physical Therapy Inpatient Rehabilitation Department * Initial Assessments - Alesha Casillas RN - 03/24/2020 2:25 PM EST Office of Care Management Initial Assessment Alesha Casillas RN reviewed record and discussed patient with Care Team. Source of Information: Patient, team, bedside nurse and medical record Introduced self/reviewed role; services accepted. Summary for Hospitalization: 74 y.o. female s/p robotic whipple w/ B2 reconstruction for main duct IPMN currently in stable condition and recovering well postoperatively. She has been noted to have subcutaneous emphysema post- operatively by anesthesia and the PACU nursing, and it appears to be improving. No airway concerns, will continue to monitor. Elma Zacarias MD Date of Service: 03/23/2020 ??9:08 PM Reason for Hospitalization: Intraductal Papillary Mucinous neoplasm Patient Active Problem List Diagnosis Code ??? 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 Basal cell carcinoma 2010 [facility]-back ??? Breast cancer Hospitalizations Within the Past 30 Days: None Anticipated Length Of Stay (If known): 03/30 Admission order confirmed/dated: Davian Carolina MD 02/24/20 1111 Current Decision-Making Capacity: Self, A&Ox3, Full Capacity Advance Care Planning: Attempt Cardiopulmonary Resuscitation - Inpatient <no information> If AD's have not been completed Roberto Carlos would be surrogate decision maker per [place] surrogate decision making law. (Only good for 90 days) Any patient receiving care at [facility] must abide by [place] law. The hierarchy for surrogate decision making is: (a) Patient???s spouse, or civil union partner or common law spouse unless there is a divorce proceeding, separation agreement, or restraining order limiting that person???s relationship with the patient. (b) Any adult son or daughter of the patient. (c) Either parent of the patient. (d) Any adult brother or sister of the patient. (e) Any adult grandchild of the patient. (f) Any grandparent of the patient. (g) Any adult aunt, uncle, niece, or nephew of the patient. (h) A close friend of the patient. (i) The agent with financial power of trust and estates attorney or a conservator appointed in accordance with RSA 464-A. (j) The guardian of the patient???s estate. Current Coping/Education/Information Needs: Patient states she is coping pretty well and declined needing a social work consult at this time. Social History Tobacco Use ??? Smoking status: Never Smoker ??? Smokeless tobacco: Never Used Substance Use Topics ??? Alcohol use: Not on file Comment: socially, 1-2 wine a month ??? Drug use: Never reports that she has never smoked. She has never used smokeless tobacco. She reports that she does not use drugs. Current Functional Ability: SBA Functional Status Prior to Admission: Independent, completely all IADL's Home Environment: Lives alone, 5 stairs to enter home and a full flight to bedroom [address] [facility] [id number] Social & Family Supports/Community Resources: Son, DIL Extended Emergency Contact Information Primary Emergency Contact: [place] [address] [facility] Relation: Child Secondary Emergency Contact: Abby Baum [place], [place] [id number] [place] [address] Mobile Relation: Son/[id number] Behavioral Health History: Denies Other Pertinent/Service Specific Information: No Health/Prescription Coverage: Primary Insurance: MEDICARE Payor: MEDICARE / Plan: MEDICARE PART A & B / Product Type: *No Product type* / Secondary Insurance: [facility] Prescription Coverage: Medicare D Preferred Pharmacy: [facility] - [place], [place] - [address] [place] [id number] [facility] - [address] [facility] [address] Primary Care Provider: Zeny James APRN [phone] Patient/Caregiver Goals of Treatment: feel better Potential Needs for Transition of Care: Rehab/SNF: n/a Home Health: The patient has been provided a list of Home Health Agencies placed. Provided patient with CMS Star Quality Rating for Home care. Patient requests referral to [facility] For RN PHONE: [phone] FAX: [phone]. Expected date of discharge: 03/30. Referral routed to the Tuck Pointer Helper for matching with agency/vendor and to provide any required information. DME: n/a Community Resources: No Transportation: Son Dialysis: n/a Anticipated Barriers to Discharge/Special Considerations: None Assessment: [facility] for RN routed and orders pended. Patient with no apparent SW needs at this time. No housing, transportation, insurance, resources concerns identified at this time. Supports in place to achieve a safe post-hospital transition. No identified barriers to accessing necessary care and/or follow-up after discharge. Assessment: patient is admitted to Surg/Onc service for Papillary Mucinous Neoplasm Plan: A member of the Care Management team will continue to monitor progress, follow for continuityof care and assist with transition of care planning. Alesha Casillas RN numerical control lathe operator Pager: [phone] * Plan of Care - Ness Cummings RN - 03/24/2020 1:24 AM EST OUTCOME EVALUATION NOTE: OUTCOME SUMMARY: Patient arrived from PACU to room 210A at 2223 . A&O x4. VSS. Pain 09/24, managed with FENCE GATE ASSEMBLER and scheduled IV Tylenol. Frequent reminders given to use FENCE GATE ASSEMBLER. Remains on 3L NC over night. Subcutaneous emphysema noted on chest and upper arms. UOP low via the calderón.NGT on LCWS with small amount of brown output. SS output from KHRIS. SCD's on. Oriented to use of call blanco, bed.chair alarm, and 2 West falls prevention program. Will continue to monitor. PLAN MOVING FORWARD: Pain management, promote oob and ambulation, monitor I&O INDIVIDUALIZED FALL PREVENTION INTERVENTIONS: High Risk Patient-specific fall risk factors per assessment: [current deficits]: Recent surgery, pain, FENCE GATE ASSEMBLER, infusing PIV, general weakness Assistance [level of assistance required for transfers and ambulation]: MIRNA Supervision [direct monitoring required during toileting and ADLs]: Hands on Surveillance [continuous indirect monitoring]: Bed/chair alarm, masimo, hourly rounding, room near unit station, NKE at bedside, yellow fall band on, environmental modifications (clutter-free environment, tubing secured, bed low, lighting adjusted, nonskid socks when OOB, bed wheels locked, call light with in reach, upper side rails x2, ID bands on) Patient-specific fall prevention interventions for sensory deficits provided, if applicable: [X] N/A CPG GOAL OUTCOME EVALUATION: * Op Note - Davian Carolina MD - 03/23/2020 4:56 PM EST [facility] Operative Note Patient Name: Linda Abel : [id number] MR#: [id number] Case Date: 03/23/2020 Surgeon: Surgeon(s) and Role: * Davian Carolina MD - Primary Registered Nurse Battery Container Tester Aluminum: Whitney Rangel RN Preoperative diagnosis: IPMN Postoperative diagnosis: IPMN Procedure(s) (LRB): ROBOTIC PANCREATECTOMY,WHIPPLE, PARTIAL GASTRECTOMY W/ PANCREATOJEJUNOSTOMY (N/A) MODIFIER ROBOT,DAVINCI XI (N/A) @OMENTAL FLAP, INTRA-ABDOMINAL (WRVU 6.54) Findings: No metastatic disease. The liver was healthy appearing. The resection was complicated by ergonomic issues given her small size and limited space within the abdomen- this made the resection and reconstruction take longer given instrument limited range of motion. Otherwise the case went well- minimal blood loss. The pancreatic duct measured 1.5 cm and the bile duct though was quite small - only 5-6 mm. After completion of the resection and as we were preparing for the reconstruction it appeared that the common hepatic or proper hepatic artery had what looked like purple discoloration and some aneurysmal dilation extending up into a branch that looked like the right hepatic artery. Her completely replaced right hepatic artery though was nicely palpable. It was unclear whether this was just some tracking of blood along the arterial adventitia or some type of dissection? We spent quite a lot of time watching this and looking at the viability/color of the liver and it appeared completely unchanged throughout the remainder of the case. Reconstruction was an intracoporal retromesenteric and decide (Blumgart type) duct to mucosa pancreaticojejunostomy. The pancreatic duct was so massively dilated that we could not stent it. The bile duct anastomosis however was somewhat difficult and that it was so tiny and required an interrupted Blumgart-Debra type hepaticojejunostomy with 5-0 PDS. Intestinal continuity was restored by bringing the proximal jejunal limb up as a retrocolic/transmesenteric side to side (Billroth II type) handsewn gastrojejunostomy anastomosis. Final inspection at the end of the case revealed excellent hemostasis and the liver really looked completely normal and there was no areas of demarcation. Anesthesia: General Estimated Blood Loss: 75 mL Specimens removed during surgery: Order Name Source Comment Collection Info Order Time SPECIMEN TO PATHOLOGY Portal vein lymph nodes IPMN portal vein lymph nodes excision No 03/23/2020 9:25 AM Time specimen removed from patient: 9:25 AM Number of tissue samples (in container) 1 Biospecimen to store? No SPECIMEN TO PATHOLOGY Common hepatic artery lymph nodes OR 9 IPMN common hepatic artery lymph nodes excision No 03/23/2020 9:54 AM Time specimen removed from patient: 9:53 AM Number of tissue samples (in container) 1 Biospecimen to store? No SPECIMEN TO PATHOLOGY Yellow margin, pancreatic neck margin- FROZEN Blue-vascular groove\ [place]-SMA [id number] IPMN Head of pancreas, antrum, duodenum excision YES, Please perform frozen section No 03/23/2020 12:38 PM Number of tissue samples (in container) 1 Time specimen removed from patient: 12:33 PM SPECIMEN TO PATHOLOGY Gallbladder and omentum [id number] IPMN Gallbladder and omentum excision No 03/23/2020 12:44 PM Time specimen removed from patient: 12:43 PM Number of tissue samples (in container) 1 Biospecimen to store? No PATHOLOGY ORDER UPDATE Gallbladder only 03/23/2020 12:51 PM Additional information: Correction Enter requested changes: Gallbladder eD-H Order Id number [id number] PATHOLOGY ORDER UPDATE Head of pancreas, antrum, duodenum & OMENTUM 03/23/2020 12:51 PM Additional information: Additional Info Enter requested changes: omentum eD-H Order Id number [id number] Drains: Drain/Device Site 12/20/19 1301 Left breast other (see comments) (Active) Drain/Device Site 03/23/20 1452 Right lower abdomen collapsible closed device (Active) Surgical Closure: Primary Closure - skin incision is completely closed without any wires, jazzy, drains or other devices Disposition: awakened from anesthesia, extubated and taken to the recovery room in a stable condition, having suffered no apparent untoward event. (Please see the Surgical Encounter Summary for any Implant and Specimen details pertinent to this patient.) HPI/Surgical Indications: Main duct IPMN Procedure Description: Mrs. Abel was identified in the preoperative holding area. She was thentaken to the OR 9, positioned supine, Venodyne boots were placed, general anesthesia was administered and he was intubated without difficulty. A Calderón catheter and nasogastric tube were then placed. She was then positioned supine in the split leg position with the arms both arms out. Her abdomen was prepped with ChloraPrep and draped in the usual sterile fashion. A formal timeout procedure was performed. Pneumoperitoneum was established using the Veress needle and a small stab incision with an 11 bladejust below the left subcostal margin (Hunter's point) after quarter percent Marcaine was used to create a local bloc in the subcutaneous tissues. To confirm intraperitoneal placement the 3 click test and the drop test was used to indicate successful peritoneal placement. Pneumoperitoneum was achieved with initial low pressures indicating successful peritoneal placement. Once the pressure had reached 15 mmHg we turned our attention to placing the trochars. A 5 mm Optiview port was placed in the left lateral upper abdomen using the 5 mm 0?? laparoscope under direct vision. Laparoscopic exploration revealed the Veress needle to be in place without injuryto underlying bowel. The Veress needle was then removed under direct vision and the insufflation was connected to the 5 mm port. Under laparoscopic visualization we then proceeded to place four robotic 8 mm ports along a horizontal line just above the umbilicus. The ports were placed approximately 8 cm apart to prevent collisions with the robotic arms. Next, we placed the 15 mm laparoscopic assistant principal port in the right mid rectus position below the robotic trochars and a 5 mm port in the left mid rectus position to allow the laparoscopic surgeon two-handed access. The left upper lateral 5 mm port which had been placed for Optiview access was then exchanged for the air seal port. Once all the ports were placed laparoscopic exploration revealed no metastatic disease. We then inserted the liver retractor via the air seal port in the left upper lateral abdomen and positioned the liver retractor to reflect the liver cephalad exposing the winnie hepatis and elevating the left lateral section of the liver. The liver retractor was fixed to the left side of the patient's bed using a Wali arm. We then positioned the patient in the steep reverse Trendelenburg position and reflected the omentum and transverse colon back down into the mid/lower abdomen to allow the gastrocolic omentum to be somewhat tented. The patient was tilted to the left slightly. We then proceeded to commence the robotic portion of the operation. The [employer] Xi patient cart was brought in and parked at the patient's left side and arm 3 was docked to the periumbilical 8 mm trocar to allow targeting of the remaining robotic arms to proceed. We then docked arm 1 to the right lateral 8 mm trocar, arm to to the right mid/lateral rectus trocar and arm for to the left mid/latera l rectus trocar. Using two surgeon-robotic and laparoscopic technique we began the dissection. We began the operation by taking down the falciform ligament in order to create an omental pedicle flap with preperitoneal fat. This was taken down off the anterior abdominal wall and care was taken to avoid disrupting the vascular pedicle which was nicely isolated. The falciform ligament was divided overlying the anterior surface of the liver to allow this omental pedicle flap to be used later in the case to cover the winnie hepatis dissection. We then focused our attention on taking down the ligament of Treitz. This necessitated reflecting the transverse colon cephalad and with the laparoscopic surgeon manipulating the proximal jejunum, retracting it to the patient's right side we began to take down the attachments of the ligament of Treitz using the Harmonic scalpel device and hook cautery. This allowed the fourth portion of the duodenum to be nicely exposed. We continued to take down all the ligaments as well as the retroperitonealattachments to expose the underlying aorta. The inferior mesenteric vein was identified and retracted laterally to allow the ligament of Treitz/duodenum mobilization to be completed. We then reflected the colon back into its normal location and proceeded to divide the omentum in the midline using the harmonic scalpel device and bipolar cautery. This allowed us to then enter the lesser sac by dividing the gastrocolic ligament and the dissection was carried toward the gastric fundus until we reached the gastroepiploic arcade. Once this was accomplished we were able to then enter the avascular plane by dividing the omentum along the proximal transverse colon it fromthe colon and extending the dissection between the anterior sheath of the transverse mesocolon and the gastrocolic omentum. This allowed us to follow the middle colic vessels down to the infrapancreatic SMV. With cephalad traction on the pylorus/proximal duodenum we could easily identify the right gastroepiploic vein approaching the gastrocolic trunk at the infra-pancreatic SMV. This dissection was continued to the patient's right side to allow the colonic hepatic flexure to be taken down and the second portion of the duodenum to come into view. With medial traction on the right colon we divided the white line of Toldt and effectively medialized the right colon mobilizing the hepatic flexure completely as the Catel Braasch maneuver as described. Once this was accomplished we began the Dulce maneuver to mobilize the duodenum off the retroperitoneal. Using a Progasper in arm 1to retract the second portion of the duodenum cephalad and mediallywe took down the retroperitoneal attachments using a combination of hook cautery and the Enseal device to expose the underlying IVC. We then proceeded to retract the second/third portion of the duodenum medially to allow the remaining retroperitoneal attachments to be divided and to allow the dissection from the right side to meet up with the dissection from the ligament of Treitz mobilization. Once this was accomplished we could bring the third and fourth portion of the duodenum and proximaljejunum through the retro-mesenteric defect and positioned this into the right upper quadrant/Morison's pouch region. We then identified the proximal jejunum at a point suitable for transection and created a window in the mesentery just beneath the bowel serosa. The proximal jejunum was divided using the [place] stapler (white load). The specimen side of the proximal jejunum and duodenal mesentery was then sequentially divided using the Harmonic device, robotic vessel sealer device as well as clips on the staying inside of the mesentery. Next, we turned our attention to the gastric mobilization. We tented the lesser omentum and dividedthe gastrohepatic ligament. We divided the lesser omentum and the lesser curvature mesentery using Harmonic scalpel device and bipolar cautery. This dissection was then carried through the gastrohepatic ligament exposing the lesser sac. The right gastroepiploic arcade which had been identified early on and the dissection was clipped with metal clips and divided using the harmonic scalpel device. At this point we proceeded to divide the stomach making sure that the nasogastric tube was pulled into the esophagus by anesthesia and the stomach was divided using 2 firings of the [place] stapler (green load and a blue load). The transected proximal stomach was reflected into the left upper quadrant and a Ray-Deidre was placed over the staple line to assist with retraction. We then turned our attention to the portal dissection. Using a Prograsp in arm 1 we retracted the gallbladder cephalad. The gallbladder was normal appearing. Visualization revealed the common hepaticartery lymph node in its usual location just lateral to the winnie hepatis and using hook cautery and the Enseal device we completely resected the common hepatic artery lymph node taking care to expose the adjacent common hepatic artery. The lymph node was retrieved through the air seal port and sent to pathology as a permanent specimen. We then proceeded to skeletonize the common hepatic artery, exposing the confluence with the gastroduodenal artery (GDA). The right gastric artery was identified and ligated across Weck clips and divided using the Harmonic device. We then placed vessel loops circumferentially around the proper hepatic artery to allow it to be retracted during the portal dissection exposing the confluence of the right and left hepatic arteries. With the hepatic arterial dissection complete we unroofed the remaining peritoneal attachments along the lateral aspect of the winnie hepatis exposing the underlying bile duct. During this dissection the lymphoareolar tissues and lymph nodes were retracted caudally with the specimen. The GDA was then circumferentially dissected and exposed to allow it to be ligated across Weck clips and then divided using the Harmonic device. With the GDA divided and the proper hepatic artery retracted using vessel loops medially we exposed the underlying portal vein. We then dissected out the common bile ductretracting the portal vein medially. Once the portal structures were nicely identified We turned our attention to the lateral portal dissection exposing the cystic artery which arose off the right hepatic artery. Cystic artery was ligated and divided across metal clips and the Harmonic device. Withlateral traction on the gallbladder infundibulum we could then dissect out the cystic duct and exposed its insertion with the common bile duct. The cystic duct was ligated and divided using clips andthe Harmonic device. With the cystic duct and artery divided we proceeded to dissect out the lymph nodes along the lateral portion of the winnie hepatis exposing the lateral aspect of the portal vein beneath the hepatic duct. This dissection allowed us to circumferentially exposed the confluence of the CBD and hepatic duct. The bile duct was then divided just proximal to the insertion with the cystic duct. This was accomplished with the robotic scissors. Bile was aspirated and a culture swab wasintroduced into the abdomen to obtain a bile duct culture which was sent to microbiology. We then introduced a bulldog clamp into the abdomen laparoscopically and placed this on the specimen side of the bile duct to prevent spillage. We then placed a Ray-Deidre up into the right upper quadrant to contain spillage from the bile duct/hepatic duct. We then turned our attention to the gastrocolic trunk where we had exposed the right gastroepiploicvein as it entered the anterior surface of the SMV. The patient's middle colic vein was preserved intact. We circumferentially exposed the base of the right gastroepiploic vein which was ligated and divided across Weck clips. This allowed the infrapancreatic SMV/portal vein junction to come into view. We exposed the undersurface of the neck of the pancreas it away from the underlying portal vein creating a tunnel between the vein and the neck of the pancreas. We then divided the pancreas using the robotic bipolar scissors and as we approached the location of the pancreatic duct we used sharp dissection with scissors to avoid cautery effect on the pancreatic parenchyma. The duct was divided and it measured and it measured 15 mm. After the pancreatic duct was divided we proceededwith completing the remainder of the pancreatic neck parenchyma transection using cautery and bipolar scissors. We then proceeded to dissect the portal vein off the distal neck/head of the pancreas al justus its lateral extent exposing both the vein of [place] superiorly and the first jejunal branch inferiorly. With medial traction on the SMV/portal vein we proceeded to expose the lateral aspect of the SMA dividing the uncinate tissue immediately lateral to the SMA using a combination of clips, cautery and the Harmonic device. This dissection effectively skeletonized the lateral aspect of the SMA exposingthe inferior pancreaticoduodenal artery (IPDA) which we then sequentially ligated and divided across clips in the Harmonic device. With the inflow completely divided to the specimen we continued the SMA dissection and then ligated and divided the vein of [place] across metal clips at its insertion with the portal vein. The remaining lymphoareolar tissues lateral to the SMA and portal vein were then reflected laterally with the specimen to effectively skeletonize the proximal SMA at its insertion with the aorta. Lymph nodes posterior to the portal vein were then also dissected away from the portal vein with the specimen which was unable to be completely removed from all its attachments. A specimen retrieval bag was introduced via the laparoscopic 15 mm port and the specimen was placedwithin the specimen retrieval bag. I then scrubbed back into case to assist with specimen extraction. We left the robot docked to the trocars and extended the 15 mm lap assistant principal port for approximately an additional 3 cm. The specimenwas removed from the patient and the GelPoint Mini was inserted into the extraction site, secured to the abdominal wall by rolling the external ring and the gel port was secured to the ring to allow pneumoperitoneum to be re-established. The specimen was inked on the back table per usual protocol using orange ink to dolores the SMA/retroperitoneal margin, blue ink to dolores the vascular groove and yellow ink to dolores the pancreatic neck margin. The specimen was then sent to pathology for a frozen section on the pancreatic neck margin revealed no high grade dysplasia or carcinoma. The gallbladder was removed from the liver using hook cautery and extracted through the 15 mm laparoscopic assistant principal port via a Endo Catch specimen retrieval bag. The gallbladder was sent as a separate specimen. We then proceeded with the reconstruction. Inspection however revealed what looked like venous blood tracking along the adventitia of the common hepatic artery and proper hepatic artery. It still looked very palpable but did have an aneurysmal type dilation to it. We carefully inspected the liver and there was clearly no demarcation anywhere in the liver. Her completely replaced right hepatic artery was widely patent and had a visibly palpable pulse. Throughout the case we continue to watch the hepatic artery to make sure there were no changes as well as the liver. We then commenced the reconstruction. The proximal jejunum was advanced through the retromesentericlocation of where the duodenum used to be into the right upper quadrant and in the retromesenteric location we create Blumgart end-to-side pancreaticojejunostomy anastomosis in two layers. The outer layer was created with 2-0 silk (6 inches in length) stiches which were placed as U- type down through the anterior edge of the pancreatic parenchyma, out the posterior edge and then into the jejunumas full-thickness seromuscular bites. The same stich was then placed back up through the undersurface of the pancreatic neck as a U stitch with the needle still attached. The anastomosis required three 2-0 outer layer stiches. Once the outer row was complete we turned our attention to the [id number] stitches. An tiny enterotomy was created immediately adjacent to the location of the pancreatic duct using hook cautery. We then placed multiple, circumferential, interrupted 5-0 PDS sutures on an RB-1 needle to create the duct to mucosa inner layer anastomosis. Before tying down the last 5-0 PDS we introduced a 4 Fr pancreatic duct stent into the pancreatic duct and positioned the pigtail aspect of the stent into the jejunum effectively stenting the pancreaticojejunostomy duct to mucosa anastomosis. Next we completed the anterior outer row layer by tying down the 2-0 silk U stitches on the pancreatic parenchyma. The 2-0 silk stitch was then used to place an additional seromuscular bite on the jejunum to allow the jejunum to cover the anterior aspect of the pancreatic anastomosis andthese silk stitches were tied in place to complete the pancreatic anastomosis. All the needles werethen retrieved from the patient and the needle count was found to be correct. We then turned out attention to the bile duct anastomosis. We created an enterotomy along the antimesenteric aspect of the jejunum approximately 10 cm down stream from the pancreatic anastomosis adjacent to the bile duct. The bile duct lumen measured 6 mm. An end to side choledochojejunostomy anastomosis was created with interrupted 4-0 PDS as a Blumgart-Debra choledochojejunostomy anastomosis. Next we turned our attention to the gastrojejunostomy anastomosis. The jejunum entering the retro-mesenteric space in the ligament of Treitz region was identified and at a location approximately 40-50 cm downstream from where the jejunum exited the retromesenteric space the jejunum was brought up in an antecolic fashion to lie adjacent to the stomach. Interrupted 2-0 SIlk stiches were used to line up the jejunum alonside the posterior stomach. We then created the posterior outer row of the anastomosis by running a 2-0 silk as a running Lembert stitch lining up the jejunal serosa to the gastric serosa. Once this was accomplished we removed the gastric staple line using hook cautery to createa large, wide open gastrotomy and then performed a similar enterotomy along the adjacent jejunum. The inner layer of the anastomosis was created using a 3-0V lock stitch as a running Avani stitch. A second layer of running Lembert type stitches was placed on the anterior with 2-0 Silk an outer layer to complete the anastomosis. The anastomosis was noted to sit nicely without torsion or outflow obstruction at the efferent jejunal limb. With the reconstruction complete we introduced a 19 Somali Darius drain via the most right lateral port site in this location with a drain placed in Morison's pouch and then passed anterior to the bile duct and then brought up anterior to the pancreatic anastomosis effectively draining both anastomoses. The drain was secured to the skin with a 2-0 proline drain stitch. Once the drain was in place we set about placing the omental pedicle flap which had been created from the falciform ligament at the beginning of the operation over the winnie hepatis dissection covering both the GDA stump as well as the right gastric artery stump. The drain was placed over the omental pedicle flap so as not to be immediately on the pancreatic anastomosis. The robot was then undocked from the patient and under laparoscopic inspection the abdomen was irrigated with 2 L of saline. The ports were then removed under laparoscopic direct vision. Hemostasis was excellent. The specimen extraction fascia was then reapproximated with a running #1 PDS stiches. The subcutaneous port sites were irrigated with saline and the skin of the port sites was reapproximated with running 4-0 Monocryl subcuticular stitches. Mastisol and Steri-Strips were applied. Mrs. Abel was awakened from anesthesia, extubated in the operating room and taken to the recovery room in hemodynamically stable condition. I was present from start to finish. Infection Bundle used? Yes Pancreas Surgery Infection Bundle: Chlorhexidine shower night before and am of surgery: Yes Chlorhexadine-alcohol skin prep: Yes Preoperative IV antibiotics: Zosyn Redosing antibiotics every 3 hours: Yes Bile duct fluid cultured: Yes Change gloves and new suction and cautery at closure: No Pigmbbask-tninfttdc-pgzghylvnn abdominal cavity wash: No Qrbkxgyww-tkrpizifz-wlmgbrtllj wound wash: No Attestation: Case Date: 03/23/2020 I performed this procedure without the involvement of a resident. DAVIAN CAROLINA MD 03/23/2020 documented in this encounter Plan of Treatment Upcoming Encounters Date Type Department Care Team (Late st Contact Info) Description 11/02/2023 1:00 PM EDT Office Visit Hematology/Oncology at [address] [phone] Mary Nails APRN [address] [place] [address] MEDICAL ONCOLOGY [place], [place] [id number] 11/02/2023 1:30 PM EDT Infusion Hematology Oncology at [address] [phone] Scheduled Referrals Name Type Priority Associated Diagnoses Order Schedule Referral to Endocrinology Outpatient Referral Routine Pre-diabetes Ordered: 04/11/2020 documented as of this encounter Procedures Procedure Name Priority Date/Time Associated Diagnosis Comments POCT GLUCOSE Routine 04/11/2020 12:02 PM EST POCT GLUCOSE Routine 04/11/2020 7:43 AM EST HEMOGRAM Routine 04/11/2020 5:35 AM EST DIFFERENTIAL, AUTOMATED Routine 04/11/20 20 5:35 AM EST HC CBC,PLT & AUTO DIFF Routine 0 5:35 AM EST HC PHOSPHORUS, SERUM Routine 04/11/2020 5:35 AM EST HC MAGNESIUM, SERUM Routine 04/11/2020 5 :35 AM EST BASIC METABOLIC PANEL (NON-FASTING) Routine 04/11/2020 5:35 AM EST POCT GLUCOSE Routine 04/11/2020 3:37 AM EST POCT GLUCOSE Routine 04/11/2020 12:32 AM EST POCT GLUCOSE Routine 04/10/2020 8:55 PM EST POCT GLUCOSE Routine 04/10/2020 5:32 PM EST POCT GLUCOSE Routine 04/10/2020 1:22 PM EST XR PICC PLACEMENT OVER 5 YEARS (IV TEAM) Routine 04/10/2020 11:44 AM EST DH VAS PICC REWIRE Routine 04/10/2020 11 :10 AM EST POCT GLUCOSE Routine 04/10/2020 8:08 AM EST HEMOGRAM Routine 04/10/2020 3:14 AM EST DIFFERENTIAL, AUTOMATED Routine 04/10/20 20 3:14 AM EST HC CBC,PLT & AUTO DIFF Routine 0 3:14 AM EST HC PHOSPHORUS, SERUM Routine 04/10/2020 3:14 AM EST HC MAGNESIUM, SERUM Routine 04/10/2020 3 :14 AM EST BASIC METABOLIC PANEL (NON-FASTING) Routine 04/10/2020 3:14 AM EST POCT GLUCOSE Routine 04/10/2020 3:09 AM EST POCT GLUCOSE Routine 04/10/2020 12:45 AM EST POCT GLUCOSE Routine 04/09/2020 8:11 PM EST POCT GLUCOSE Routine 04/09/2020 4:59 PM EST POCT GLUCOSE Routine 04/09/2020 1:16 PM EST POCT GLUCOSE Routine 04/09/2020 8:05 AM EST POCT GLUCOSE Routine 04/09/2020 5:18 AM EST POCT GLUCOSE Routine 04/09/2020 12:52 AM EST HEMOGRAM Routine 04/09/2020 12:30 AM EST DIFFERENTIAL, AUTOMATED Routine 04/09/20 20 12:30 AM EST HC CBC,PLT & AUTO DIFF Routine 0 12:30 AM EST HC PHOSPHORUS, SERUM Routine 04/09/2020 12:30 AM EST HC MAGNESIUM, SERUM Routine 04/09/2020 1 2:30 AM EST BASIC METABOLIC PANEL (NON-FASTING) Routine 04/09/2020 12:30 AM EST POCT GLUCOSE Routine 04/08/2020 9:03 PM EST HC C. DIFF QUIK CHEK ANTIGEN Routine 04/08/2020 5:52 PM EST POCT GLUCOSE Routine 04/08/2020 3:42 PM EST POCT GLUCOSE Routine 04/08/2020 12:31 PM EST POCT GLUCOSE Routine 04/08/2020 7:28 AM EST POCT GLUCOSE Routine 04/08/2020 3:25 AM EST HEMOGRAM Routine 04/08/2020 12:30 AM EST DIFFERENTIAL, AUTOMATED Routine 04/08/20 20 12:30 AM EST HC CBC,PLT & AUTO DIFF Routine 0 12:30 AM EST HC PHOSPHORUS, SERUM Routine 04/08/2020 12:30 AM EST HC MAGNESIUM, SERUM Routine 04/08/2020 1 2:30 AM EST BASIC METABOLIC PANEL (NON-FASTING) Routine 04/08/2020 12:30 AM EST POCT GLUCOSE Routine 04/08/2020 12:06 AM EST POCT GLUCOSE Routine 04/07/2020 7:42 PM EST POCT GLUCOSE Routine 04/07/2020 3:46 PM EST POCT GLUCOSE Routine 04/07/2020 11:18 AM EST POCT GLUCOSE Routine 04/07/2020 7:32 AM EST HEMOGRAM Routine 04/07/2020 3:50 AM EST DIFFERENTIAL, AUTOMATED Routine 04/07/20 3:50 AM EST HC CBC,PLT & AUTO DIFF Routine 0 3:50 AM EST HC PHOSPHORUS, SERUM Routine 04/07/2020 3:50 AM EST HC MAGNESIUM, SERUM Routine 04/07/2020 3 :50 AM EST BASIC METABOLIC PANEL (NON-FASTING) Routine 04/07/2020 3:50 AM EST POCT GLUCOSE Routine 04/07/2020 3:41 AM EST POCT GLUCOSE Routine 04/06/2020 11:51 PM EST POCT GLUCOSE Routine 04/06/2020 8:06 PM EST POCT GLUCOSE Routine 04/06/2020 4:02 PM EST POCT GLUCOSE Routine 04/06/2020 12:12 PM EST POCT GLUCOSE Routine 04/06/2020 7:50 AM EST POCT GLUCOSE Routine 04/06/2020 4:43 AM EST HEMOGRAM Routine 04/06/2020 1:30 AM EST DIFFERENTIAL, AUTOMATED Routine 04/06/20 1:30 AM EST HC CBC,PLT & AUTO DIFF Routine 0 1:30 AM EST HC PHOSPHORUS, SERUM Routine 04/06/2020 1:30 AM EST HC MAGNESIUM, SERUM Routine 04/06/2020 1 :30 AM EST BASIC METABOLIC PANEL (NON-FASTING) Routine 04/06/2020 1:30 AM EST POCT GLUCOSE Routine 04/05/2020 11:23 PM EST POCT GLUCOSE Routine 04/05/2020 8:03 PM EST POCT GLUCOSE Routine 04/05/2020 4:11 PM EST XR CHEST PA AND LATERAL Routine 04/05/20 2:59 PM EST POCT GLUCOSE Routine 04/05/2020 11:36 AM EST POCT GLUCOSE Routine 04/05/2020 8:06 AM EST POCT GLUCOSE Routine 04/05/2020 4:03 AM EST SCAN, PERIPHERAL BLOOD Routine 0 1:10 AM EST HEMOGRAM Routine 04/05/2020 1:10 AM EST DIFFERENTIAL, AUTOMATED Routine 04/05/20 1:10 AM EST HC CBC,PLT & AUTO DIFF Routine 0 1:10 AM EST HC PHOSPHORUS, SERUM Routine 04/05/2020 1:10 AM EST HC MAGNESIUM, SERUM Routine 04/05/2020 1 :10 AM EST BASIC METABOLIC PANEL (NON-FASTING) Routine 04/05/2020 1:10 AM EST POCT GLUCOSE Routine 04/05/2020 1:09 AM EST POCT GLUCOSE Routine 04/04/2020 10:11 PM EST POCT GLUCOSE Routine 04/04/2020 8:22 PM EST POCT GLUCOSE Routine 04/04/2020 4:36 PM EST POCT GLUCOSE Routine 04/04/2020 11:52 AM EST POCT GLUCOSE Routine 04/04/2020 7:38 AM EST POCT GLUCOSE Routine 04/04/2020 5:20 AM EST POCT GLUCOSE Routine 04/04/2020 5:19 AM EST HEMOGRAM Routine 04/04/2020 3:26 AM EST DIFFERENTIAL, AUTOMATED Routine 04/04/20 20 3:26 AM EST HC CBC,PLT & AUTO DIFF Routine 0 3:26 AM EST HC PHOSPHORUS, SERUM Routine 04/04/2020 3:26 AM EST HC MAGNESIUM, SERUM Routine 04/04/2020 3 :26 AM EST BASIC METABOLIC PANEL (NON-FASTING) Routine 04/04/2020 3:26 AM EST POCT GLUCOSE Routine 04/04/2020 3:18 AM EST POCT GLUCOSE Routine 04/04/2020 12:50 AM EST POCT GLUCOSE Routine 04/03/2020 9:25 PM EST POCT GLUCOSE Routine 04/03/2020 4:19 PM EST URINALYSIS MICROSCOPIC EXAM Routine 04/03/2020 2:22 PM EST URINALYSIS WITH REFLEX CULTURE Routine 04/03/2020 2:22 PM EST POCT GLUCOSE Routine 04/03/2020 12:47 PM EST XR ABDOMEN 1 VIEW Routine 04/03/2020 11: 26 AM EST POCT GLUCOSE Routine 04/03/2020 5:18 AM EST HEMOGRAM Routine 04/03/2020 2:50 AM EST DIFFERENTIAL, AUTOMATED Routine 04/03/20 2:50 AM EST HC CBC,PLT & AUTO DIFF Routine 0 2:50 AM EST HC PHOSPHORUS, SERUM Routine 04/03/2020 2:50 AM EST HC MAGNESIUM, SERUM Routine 04/03/2020 2 :50 AM EST BASIC METABOLIC PANEL (NON-FASTING) Routine 04/03/2020 2:50 AM EST POCT GLUCOSE Routine 04/02/2020 10:57 PM EST XR CHEST ONE VIEW STAT 04/02/2020 7:2 1 PM EST XR ABDOMEN 1 VIEW STAT 04/02/2020 7:2 1 PM EST BASIC METABOLIC PANEL (NON-FASTING) Timed 04/02/2020 6:15 PM EST POCT GLUCOSE Routine 04/02/2020 5:17 PM EST Upper GI Endoscopy, Diagnostic ([id number]) 04/02/2020 3:17 PM EST Post Whipple UPPER GI ENDOSCOPY Routine 04/02/2020 2: 52 PM EST POCT GLUCOSE Routine 04/02/2020 12:12 PM EST POCT GLUCOSE Routine 04/02/2020 9:58 AM EST POCT GLUCOSE Routine 04/02/2020 8:04 AM EST HEMOGRAM Routine 04/02/2020 1:40 AM EST DIFFERENTIAL, AUTOMATED Routine 04/02/20 20 1:40 AM EST HC CBC,PLT & AUTO DIFF Routine 0 1:40 AM EST HC PHOSPHORUS, SERUM Routine 04/02/2020 1:40 AM EST HC MAGNESIUM, SERUM Routine 04/02/2020 1 :40 AM EST BASIC METABOLIC PANEL (NON-FASTING) Routine 04/02/2020 1:40 AM EST POCT GLUCOSE Routine 04/01/2020 7:48 PM EST XR ABDOMEN 1 VIEW STAT 04/01/2020 5:5 2 PM EST BMP W/FASTING GLUCOSE Routine 04/01/2020 3:53 PM EST POCT GLUCOSE Routine 04/01/2020 3:[address] ABDOMEN AND PELVIS W CONTRAST Routine 04/01/2020 3:03 PM EST POCT GLUCOSE Routine 04/01/2020 11:20 AM EST POCT GLUCOSE Routine 04/01/2020 7:30 AM EST POCT GLUCOSE Routine 04/01/2020 4:43 AM EST HEMOGRAM Routine 04/01/2020 4:20 AM EST DIFFERENTIAL, AUTOMATED Routine 04/01/20 20 4:20 AM EST HC CBC,PLT & AUTO DIFF Routine 0 4:20 AM EST BASIC METABOLIC PANEL (NON-FASTING) Routine 04/01/2020 4:20 AM EST POCT GLUCOSE Routine 04/01/2020 12:06 AM EST POCT GLUCOSE Routine 03/31/2020 8:52 PM EST XR ABDOMEN FLAT AND UPRIGHT STAT 03/31/2020 6:57 PM EST POCT GLUCOSE Routine 03/31/2020 4:52 PM EST POCT GLUCOSE Routine 03/31/2020 12:03 PM EST POCT GLUCOSE Routine 03/31/2020 7:35 AM EST BMP W/FASTING GLUCOSE Routine 03/31/2020 6:36 AM EST HEMOGRAM Routine 03/31/2020 6:36 AM EST DIFFERENTIAL, AUTOMATED Routine 03/31/20 6:36 AM EST HC CBC,PLT & AUTO DIFF Routine 0 6:36 AM EST HC PHOSPHORUS, SERUM Routine 03/31/2020 6:36 AM EST HC MAGNESIUM, SERUM Routine 03/31/2020 6 :36 AM EST POCT GLUCOSE Routine 03/30/2020 8:05 PM EST POCT GLUCOSE Routine 03/30/2020 4:55 PM EST HC C PEPTIDE Routine 03/30/2020 1:45 PM EST POCT GLUCOSE Routine 03/30/2020 11:41 AM EST POCT GLUCOSE Routine 03/30/2020 7:43 AM EST BMP W/FASTING GLUCOSE Routine 03/30/2020 1:20 AM EST HEMOGRAM Routine 03/30/2020 1:20 AM EST DIFFERENTIAL, AUTOMATED Routine 03/30/20 1:20 AM EST HC CBC,PLT & AUTO DIFF Routine 0 1:20 AM EST HC PHOSPHORUS, SERUM Routine 03/30/2020 1:20 AM EST HC MAGNESIUM, SERUM Routine 03/30/2020 1 :20 AM EST HEMOGLOBIN A1C Routine 03/30/2020 1:20 AM EST POCT GLUCOSE Routine 03/29/2020 8:57 PM EST POCT GLUCOSE Routine 03/29/2020 4:13 PM EST POCT GLUCOSE Routine 03/29/2020 12:25 PM EST POCT GLUCOSE Routine 03/29/2020 8:24 AM EST POCT GLUCOSE Routine 03/29/2020 4:22 AM EST HC PHOSPHORUS, SERUM Routine 03/29/2020 2:30 AM EST HC MAGNESIUM, SERUM Routine 03/29/2020 2 :30 AM EST BASIC METABOLIC PANEL (NON-FASTING) Routine 03/29/2020 2:30 AM EST HEMOGRAM Routine 03/29/2020 1:20 AM EST DIFFERENTIAL, AUTOMATED Routine 03/29/20 20 1:20 AM EST HC CBC,PLT & AUTO DIFF Routine 0 1:20 AM EST POCT GLUCOSE Routine 03/29/2020 12:05 AM EST POCT GLUCOSE Routine 03/28/2020 7:28 PM EST POCT GLUCOSE Routine 03/28/2020 4:01 PM EST POCT GLUCOSE Routine 03/28/2020 11:34 AM EST POCT GLUCOSE Routine 03/28/2020 7:30 AM EST HC AMYLASE Routine 03/28/2020 4:00 AM EST POCT GLUCOSE Routine 03/28/2020 3:57 AM EST BMP W/FASTING GLUCOSE Routine 03/28/2020 1:45 AM EST HEMOGRAM Routine 03/28/2020 1:45 AM EST DIFFERENTIAL, AUTOMATED Routine 03/28/20 20 1:45 AM EST HC CBC,PLT & AUTO DIFF Routine 0 1:45 AM EST HC PHOSPHORUS, SERUM Routine 03/28/2020 1:45 AM EST HC MAGNESIUM, SERUM Routine 03/28/2020 1 :45 AM EST HC AMYLASE Routine 03/28/2020 1:45 AM EST POCT GLUCOSE Routine 03/28/2020 12:03 AM EST POCT GLUCOSE Routine 03/27/2020 8:06 PM EST POCT GLUCOSE Routine 03/27/2020 4:16 PM EST POCT GLUCOSE Routine 03/27/2020 11:28 AM EST POCT GLUCOSE Routine 03/27/2020 7:52 AM EST POCT GLUCOSE Routine 03/27/2020 4:12 AM EST HC AMYLASE Routine 03/27/2020 3:28 AM EST HEMOGRAM Routine 03/27/2020 3:20 AM EST DIFFERENTIAL, AUTOMATED Routine 03/27/20 3:20 AM EST HC CBC,PLT & AUTO DIFF Routine 0 3:20 AM EST HC PHOSPHORUS, SERUM Routine 03/27/2020 3:20 AM EST HC MAGNESIUM, SERUM Routine 03/27/2020 3 :20 AM EST HC AMYLASE Routine 03/27/2020 3:20 AM EST COMPREHENSIVE METABOLIC PANEL (NON-FASTING) Routine 03/27/2020 3:20 AM EST POCT GLUCOSE Routine 03/27/2020 3:19 AM EST POCT GLUCOSE Routine 03/27/2020 12:03 AM EST POCT GLUCOSE Routine 03/26/2020 9:10 PM EST POCT GLUCOSE Routine 03/26/2020 7:52 PM EST POCT GLUCOSE Routine 03/26/2020 3:59 PM EST POCT GLUCOSE Routine 03/26/2020 11:[address] ANGIOGRAM ABDOMEN Routine 03/26/2020 10:56 AM EST POCT GLUCOSE Routine 03/26/2020 7:32 AM EST POCT GLUCOSE Routine 03/26/2020 3:16 AM EST HEMOGRAM Routine 03/26/2020 1:45 AM EST DIFFERENTIAL, AUTOMATED Routine 03/26/20 20 1:45 AM EST HC CBC,PLT & AUTO DIFF Routine 0 1:45 AM EST HC PHOSPHORUS, SERUM Routine 03/26/2020 1:45 AM EST HC MAGNESIUM, SERUM Routine 03/26/2020 1 :45 AM EST HC AMYLASE Routine 03/26/2020 1:45 AM EST COMPREHENSIVE METABOLIC PANEL (NON-FASTING) Routine 03/26/2020 1:45 AM EST HC AMYLASE Routine 03/26/2020 1:36 AM EST POCT GLUCOSE Routine 03/25/2020 11:11 PM EST POCT GLUCOSE Routine 03/25/2020 7:53 PM EST POCT GLUCOSE Routine 03/25/2020 4:23 PM EST POCT GLUCOSE Routine 03/25/2020 12:36 PM EST URINALYSIS MICROSCOPIC EXAM Routine 03/25/2020 10:21 AM EST URINALYSIS WITH REFLEX CULTURE Routine 03/25/2020 10:21 AM EST POCT GLUCOSE Routine 03/25/2020 7:50 AM EST POCT GLUCOSE Routine 03/25/2020 4:06 AM EST HC AMYLASE Routine 03/25/2020 3:53 AM EST HEMOGRAM Routine 03/25/2020 1:55 AM EST DIFFERENTIAL, AUTOMATED Routine 03/25/20 20 1:55 AM EST HC CBC,PLT & AUTO DIFF Routine 0 1:55 AM EST HC PHOSPHORUS, SERUM Routine 03/25/2020 1:55 AM EST HC MAGNESIUM, SERUM Routine 03/25/2020 1 :55 AM EST HC AMYLASE Routine 03/25/2020 1:55 AM EST COMPREHENSIVE METABOLIC PANEL (NON-FASTING) Routine 03/25/2020 1:55 AM EST POCT GLUCOSE Routine 03/24/2020 11:38 PM EST POCT GLUCOSE Routine 03/24/2020 8:17 PM EST HC ASPARTATE AMINOTRANSFERASE (AST) Timed 03/24/2020 5:40 PM EST HC POTASSIUM Timed 03/24/2020 5:40 PM EST POCT GLUCOSE Routine 03/24/2020 5:[address] PICC LINE: CONTACT VASCULAR ACCESS Routine 03/24/2020 4:54 PM EST XR PICC PLACEMENT OVER 5 YEARS (IV TEAM) Routine 03/24/2020 4:42 PM EST POCT GLUCOSE Routine 03/24/2020 1:05 PM EST POCT GLUCOSE Routine 03/24/2020 9:28 AM EST HC VENIPUNCTURE STAT 03/24/2020 8:28 AM EST HEMOGRAM Routine 03/24/2020 8:28 AM EST DIFFERENTIAL, AUTOMATED Routine 03/24/20 20 8:28 AM EST HC CBC,PLT & AUTO DIFF Routine 0 8:28 AM EST HC PHOSPHORUS, SERUM Routine 03/24/2020 8:28 AM EST HC MAGNESIUM, SERUM Routine 03/24/2020 8 :28 AM EST HC AMYLASE Routine 03/24/2020 8:28 AM EST HC AMYLASE Routine 03/24/2020 5:07 AM EST SCAN, PERIPHERAL BLOOD STAT 0 6:30 PM EST HEMOGRAM STAT 03/23/2020 6:30 PM EST DIFFERENTIAL, AUTOMATED STAT 03/23/20 20 6:30 PM EST HC CBC,PLT & AUTO DIFF STAT 0 6:30 PM EST HC PHOSPHORUS, SERUM STAT 03/23/2020 6:30 PM EST HC MAGNESIUM, SERUM STAT 03/23/2020 6 :30 PM EST COMPREHENSIVE METABOLIC PANEL (NON-FASTING) STAT 03/23/2020 6:30 PM EST ANAEROBIC CULTURE Routine 03/23/2020 1:4 6 PM EST HC BODY FLUID CULTURE Routine 03/23/2020 1:46 PM EST BODY FLUID CULTURE, AEROBIC Routine 03/23/2020 1:46 PM EST SPECIMEN TO PATHOLOGY Routine 03/23/2020 12:44 PM EST SPECIMEN TO PATHOLOGY STAT 03/23/2020 12:39 PM EST SPECIMEN TO PATHOLOGY Routine 03/23/2020 9:54 AM EST SURGICAL PATHOLOGY REPORT Routine 03/23/2020 9:25 AM EST SPECIMEN TO PATHOLOGY Routine 03/23/2020 9:25 AM EST Omental Flap, Intra-Abdominal ([id number]) 03/23/2020 7:43 AM EST IPMN MODIFIER ROBOT,DAVINCI XI 03/23/2020 7:43 AM EST IPMN Unlisted Px Pncrs ([id number]) 03/23/2020 7:43 AM EST IPMN ABORH RECHECK STATUS Routine 03/23/2020 7:24 AM EST ABO/RH TYPING Routine 03/23/2020 7:24 AM EST ANTIBODY SCREEN Routine 03/23/2020 7:24 AM EST HC ABO-MICROTITER Routine 03/23/2020 7:2 4 AM EST documented in this encounter Results * Prealbumin (09/28/2020 11:52 AM EDT) Prealbumin 21 20 - 40 mg/dL [facility] Comment: Prealbumin levels are generally lower in the pediatric population; adult concentrations are usually attained near puberty. Blood 09/28/2020 11:5 2 AM EDT 09/28/2020 12:17 PM EDT Narrative Resulting Agency Comment Spec In Lab Anjelica Jordan JESUS ALBERTO CHEMISTRY ORDERA BLES [facility] [place] [address] * (ABNORMAL) Comprehensive metabolic panel (non-fasting) (09/28/2020 11:52 AM EDT) Glucose Lvl 127 65 - 199 mg/dL [facility] Comment:Diabetes: >=200 mg/d L plus symptoms BUN 16 8 - 18 mg/dL [facility] Creatinine 0.65(L) 0.70 - 1.20 mg/dL [facility] Sodium 136 135 - 145 mmol/L [facility] Potassium 4.0 3.5 - 5.0 mmol/L [facility] Comment: Please note: ??Patients with WBC >100,000 may have falsely elevated Potassium levels. ??For accurate Potassium quantification in these patients send serum separator tube (gold top) for subsequent determinations. ??Contact the Clinical Chemistry Laboratory if there are any questions. Chloride 101 98 - 107 mmol/L [facility] CO2 25 22 - 31 mmol/L [facility] Anion Gap 10 5 - 15 mmol/L [facility] Calcium 9.0 8.5 - 10.5 mg/dL [facility] Total Protein 6.5 6.1 - 8.0 gm/dL [facility] Albumin 4.1 3.2 - 5.2 gm/dL [facility] AST 28 0 - 30 unit/L [facility] ALT 27 0 - 30 unit/L [facility] Alk Phos 148(H) 35 - 105 unit/L [facility] Total Bilirubin 0.3 0.2 - 1.3 mg/dL [facility] Estimated GFR 88 >=60 mL/min/1. 73 m?? [facility] Comment: This patient? s estimated [...] Comment Spec In Lab Anjelica Jordan APRN CHEMISTRY ORDERA BLES Performing Organization Address [facility] Co de Phone Number [facility] [place] [address] * POCT Glucose (04/11/2020 12:02 PM EST) POC Glucose 150 65 - 199 mg/dL [facility] Comment: Supplemental ranges: <140 mg/dL before meals <180 mg/dL all other times of the day Blood specimen (specimen) 04/11/2020 12:02 PM EST 04/11/2020 12:02 PM EST Davian Carolina MD POINT OF CARE TEST ORDERABLES Performing Organization Address [facility] Co de Phone Number [facility] [place] [address] * POCT Glucose (04/11/2020 7:43 AM EST) POC Glucose 162 65 - 199 mg/dL [facility] Comment: Supplemental ranges: <140 mg/dL before meals <180 mg/dL all other times of the day Blood specimen (specimen) 04/11/2020 7:43 AM EST 04/11/2020 7:43 AM EST Davian Carolina MD POINT OF CARE TEST ORDERABLES Performing Organization Address [facility] Co de Phone Number [facility] [place] [address] * (ABNORMAL) Differential, Automated (04/11/2020 5:35 AM EST) Neutrophils % 75.6 % [facility] Neutr Abs (ANC) 9.98(H) 1.70 - 6.10 x10(3)/[facility] Lymphocytes % 9.9 % [facility] Lymphocytes Abs 1.3 0.9 - 3.2 x10(3)/[facility] Monocytes % 7.6 % [facility] Monocyte Abs 1.0(H) 0.3 - 0.9 x10(3)/[facility] Eosinophils % 3.9 % [facility] Eosinophils Abs 0.5(H) 0.0 - 0.4 x10(3)/[facility] Basophils % 0.7 % [facility] Basophils Abs 0.1 0.0 - 0.1 x10(3)/[facility] Immature Gran % 2.30 % [facility] Comment: Immature granulocytes(IG's)percentage and absolute count will include metamyelocytes, myelocytes, and promyelocytes. Blood smears from CBCs yielding IG's will be scanned manually for concordance. If this scan disagrees with the automated IG or if promyelocytes are noted, a manual differential will be performed. Nory Gran Abs 0.31(H) 0.00 - 0.04 x10(3)/[facility] Blood specimen (specimen) 04/11/2020 5:35 AM EST 04/11/2020 5:43 AM EST Narrative Resulting Agency Comment Spec In Lab Anjelica Jordan APRN HEMATOLOGY ORDER MAGAN [facility] [place] [address] * (ABNORMAL) Hemogram (04/11/2020 5:35 AM EST) WBC 13.2(H) 4.0 - 9.5 x10(3)/[facility] LAB[facility]ATORY RBC 3.22(L) 4.00 - 5.21 x10(6)/[facility] Hemoglobin 9.7(L) 11.7 - 15.5 gm/dL [facility] Hematocrit 29.4(L) 35.7 - 45.8 % [facility] MCV 91.3 82.6 - 94.4 [facility] LABORATORY MCH 30.1 27.1 - 32.0 pg [facility] MCHC 33.0 31.7 - 35.0 gm/dL [facility] Platelets 371(H) 145 - 357 x10(3)/[facility] LABORATORY RDWSD 44.1 37.0 - 46.0 [facility] LABORATORY RDWCV 13.2 11.5 - 14.1 % [facility] MPV 10.1 7.6 - 12.9 [facility] LABORATORY nRBC % Auto 0.0 % [facility] LABORATORY nRBC Abs Auto 0.000 0.000 - 0.000 x10(3)/[facility] LABORATORY Blood specimen (specimen) 04/11/2020 5:35 AM EST 04/11/2020 5:43 AM EST Narrative Resulting Agency Comment Spec In Lab Anjelica Jordan [facility] ORDER [facility] [place] [address] * Phosphorus (04/11/2020 5:35 AM EST) Phosphorus 3.4 2.5 - 4.5 mg/dL [facility] Blood specimen (specimen) 04/11/2020 5:35 AM EST 04/11/2020 5:43 AM EST Narrative Resulting Agency Comment Spec In Lab Anjelica Jordan [facility] CHEMISTR[facility] ORDERA BLES Performing Organization Address City/[facility]/ZIP Co de Phone Number [facility] [place] [address] * Magnesium (04/11/2020 5:35 AM EST) Magnesium 0.69 0.69 - 1.07 mmol/L [facility] Blood specimen (specimen) 04/11/2020 5:35 AM EST 04/11/2020 5:43 AM EST Narrative Resulting Agency Comment Spec In Lab Anjelica Jordan MEAL COOKER CHEMISTRY ORDERA BLES Performing Organization Address [facility] Co de Phone Number [facility] [place] [address] * (ABNORMAL) Basic Metabolic Panel (non-fasting) (04/11/2020 5:35 AM EST) Pathologist [facility] Glucose Lvl 165 65 - 199 mg/dL [facility] Comment:Diabetes: >=200 mg/d L plus symptoms BUN 15 8 - 18 mg/dL [facility] Creatinine 0.34(L) 0.70 - 1.20 mg/dL [facility] Sodium 130(L) 135 - 145 mmol/L [facility] Potassium 4.3 3.5 - 5.0 mmol/L [facility] Comment: Please note: ??Patients with WBC >100,000 may have falsely elevated Potassium levels. ??For accurate Potassium quantification in these patients send serum separator tube (gold top) for subsequent determinations. ??Contact the Clinical Chemistry Laboratory if there are any questions. Chloride 99 98 - 107 mmol/L [facility] CO2 25 22 - 31 mmol/L [facility] Anion Gap 6 5 - 15 mmol/L [facility] Calcium 7.7(L) 8.5 - 10.5 mg/dL [facility] Estimated GFR 109 >=60 mL/min/1. 73 m?? [facility] Comment: This patient? s estimated glomerular filtration rate (eGFR) is between 109 mL/min/1.73 m2 (patients with less muscle mass) and 126 mL/min/1.73 m2 (patients with more muscle mass) as determined by the CKD-EPI equation. Assessment of eGFR is not appropriate when creatinine concentrations are rapidly changing. For clinical decisions where creatinine clearance will affect therapy, a 24-hour urine creatinine clearance may be advised. Assignment of CKD stage 1 ? 5 for patients with an eGFR near the transition point between stages may be based on clinical assessment of muscle mass and symptoms in addition to eGFR. Blood specimen (specimen) 04/11/2020 5:35 AM EST 04/11/2020 5:43 AM EST Narrative Resulting Agency Comment Spec In Lab Anjelica Jordan APRN CHEMISTRY ORDERA BLES Performing Organization Address [facility] Co de Phone Number [facility] [place] [address] * POCT Glucose (04/11/2020 3:37 AM EST) POC Glucose 184 65 - 199 mg/dL [facility] Comment: Supplemental ranges: <140 mg/dL before meals <180 mg/dL all other times of the day Blood specimen (specimen) 04/11/2020 3:37 AM EST 04/11/2020 3:37 AM EST Davian Carolina MD POINT OF CARE TEST ORDERABLES Performing Organization Address City/[facility]/ZIP Co de Phone Number [facility] [place] [address] * POCT Glucose (04/11/2020 12:32 AM EST) POC Glucose 181 65 - 199 mg/dL [facility] Comment: Supplemental ranges: <140 mg/dL before meals <180 mg/dL all other times of the day Blood specimen (specimen) 04/11/2020 12:32 AM EST 04/11/2020 12:32 AM EST Davian Carolina MD POINT OF CARE TEST ORDERABLES Performing Organization Address City/[facility]/ZIP Co de Phone Number [facility] [place] [address] * POCT Glucose (04/10/2020 8:55 PM EST) POC Glucose 174 65 - 199 mg/dL [facility] Comment: Supplemental ranges: <140 mg/dL before meals <180 mg/dL all other times of the day Blood specimen (specimen) 04/10/2020 8:55 PM EST 04/10/2020 8:55 PM EST Davian Carolina MD POINT OF CARE TEST ORDERABLES Performing Organization Address [facility] Co de Phone Number [facility] [place] [address] * POCT Glucose (04/10/2020 5:32 PM EST) POC Glucose 168 65 - 199 mg/dL [facility] Comment: Supplemental ranges: <140 mg/dL before meals <180 mg/dL all other times of the day Blood specimen (specimen) 04/10/2020 5:32 PM EST 04/10/2020 5:32 PM EST Davian Carolina MD POINT OF CARE TEST ORDERABLES Performing Organization Address [facility] Co de Phone Number [facility] [place] [address] * POCT Glucose (04/10/2020 1:22 PM EST) POC Glucose 167 65 - 199 mg/dL [facility] Comment: Supplemental ranges: <140 mg/dL before meals <180 mg/dL all other times of the day Blood specimen (specimen) 04/10/2020 1:22 PM EST 04/10/2020 1:22 PM EST Davian Carolina MD POINT OF CARE TEST ORDERABLES Performing Organization Address City/[facility]/ZIP Co [place] [address] * XR PICC Placement Over 5 Years with Imaging Guidance (IV Team) (04/10/2020 11:44 AM EST) Anatomical Region Laterality Modality N/A Radio Fluoroscop y Impressions 04/10/2020 12:18 PM EST Left-sided PICC with distal tip projecting over the lower SVC. Preliminary report signed by: Andrew Melgar at 04/10/2020 11:47 AM I have personally reviewed the image(s) and the resident's interpretation and agree with the findings, Maria Esther Gaines MD at 04/10/2020 12:18 PM Thank you for letting us participate in the care of this patient. For questions regarding this report, please contact the number below. ? Electronically signed by: Maria Esther Gaines MD, [facility] ([phone]), at 04/10/2020 12:18 PM Narrative 04/10/2020 12:18 PM EST EXAMINATION: XR PICC PLACEMENT OVER 5 YEARS WITH IMAGING GUIDANCE (IV TEAM) CLINICAL HISTORY: Confirmation of PICC line placement; TPN use (as entered by ordering provider in the order requisition) TECHNIQUE: C-arm placement of PICC line. Limited view of the line tip only. COMPARISON: Chest radiograph 04/05/2020 FINDINGS: Intraprocedural frontal radiograph of the mediastinum demonstrates a left-sided PICC line, with the catheter tip projected at the lower SVC. Procedure Note Maria Esther Gaines MD - 04/10/2020 EXAMINATION: XR PICC PLACEMENT OVER 5 YEARS WITH IMAGING GUIDANCE (IVTEAM) CLINICAL HISTORY: Confirmation of PICC line placement; TPN use (as enteredby ordering provider in the order requisition) TECHNIQUE: C-arm placement of PICC line. Limited view of the line tiponly. COMPARISON: Chest radiograph 04/05/2020 FINDINGS: Intraprocedural frontal radiograph of the mediastinumdemonstrates a left-sided PICC line, with the catheter tip projected at the lower SVC. IMPRESSION Left-sided PICC with distal tip projecting over the lower SVC. Preliminary report signed by: Andrew Ramón at 04/10/2020 11:47 AM I have personally reviewed the image(s) and the resident's interpretationand agree with the findings, Maria Esther Gaines MD at 04/10/2020 12:18 PM Thank you for letting us participate in the care of this patient. Forquestions regarding this report, please contact the number below. Electronically signed by: Maria Esther Gaines MD, [facility]([phone]), at 04/10/2020 12:18 PM Davian Carolina MD IMG FLUORO ORDERAB LES * PICC Line Rewire Is PICC procedure required PRIOR to patients discharge? Yes (04/10/2020 11:10 AM EST) Narrative Sharon Alfaro, LOS - 04/10/2020 11:10 AM EST Sharon Alfaro, LOS ? 04/10/2020 11:55 AM PICC/Midline Insertion Procedure Note Indications: Access and TPN This insertion was not to replace a malfunctioning catheter. This insertion was not due to a suspected line-associated infection. Location of Procedure: X-Ray Room 11 Risks and Benefits: The risks and benefits of this procedure were reviewed and informed consent was obtained obtained. Time Out: Prior to the start of the procedure, the patient's identity, intended procedure, site/side, correct patient positioning and presence of the site dolores was confirmed as applicable. The medical history and chart were reviewed to rule out potential contraindications to the planned procedure. Hand Hygiene: The plate driller did perform hand hygiene prior to line insertion. Catheter type: PICC Lot number: [id number] Procedure Technique: Skin was prepped with chlorhexidine. Skin preparation agent was completely dry at the time of first skin puncture. The following barrier precaution methods were used:large sterile drape, maske/eye shield, large sterile gown, sterile gloves and cap. 1 ml of 1% Lidocaine was used for skin wheal. Ultrasound was not used for guidance. Radiographic contrast agent was not injected for vein identification. Procedure Details: Order received for catheter placement. A 4 Fr. single lumen Bard Power catheter was placed into the right basilic vein over a 0.018 inch guidewire using modified seldinger technique and fluoroscopy. Arm circumference was 30 cm at 2 cm above the insertion site. Final catheter length (with trimming): 39 cm Internal: 39 cm External: 0 cm Tip in SVC per DR GAINES. The line was placed over a guidewire. Post Procedure: Diagnosis: S/P WHIPPLE Blood return noted on aspiration of line after placement confirmed. 5 mls of normal saline infused free flowing to gravity via PICC after insertion. Sterile dressing applied: Biopatch and sorbaview. Findings: The patient did tolerate the procedure well. No Complications. Procedure Comments: PICC rewired to 1 lumen for home TPN SHARON ALFARO RN 04/10/2020 Davian Carolina MD PROCEDURE/MINOR MUNIZ RGICAL ORDERABLES * (ABNORMAL) POCT Glucose (04/10/2020 8:08 AM EST) Pathologist [facility] POC Glucose 220(H) 65 - 199 mg/dL [facility] Comment: Supplemental ranges: <140 mg/dL before meals <180 mg/dL all other times of the day Blood specimen (specimen) 04/10/2020 8:08 AM EST 04/10/2020 8:08 AM EST Davian Carolina MD POINT OF CARE TEST ORDERABLES [facility] [place] [address] * (ABNORMAL) Differential, Automated (04/10/2020 3:14 AM EST) Pathologist [facility] Neutrophils % 64.4 % [facility] Neutr Abs (ANC) 8.46(H) 1.70 - 6.10 x10(3)/mc L [facility] Lymphocytes % 14.2 % [facility] Lymphocytes Abs 1.9 0.9 - 3.2 x10(3)/mc L [facility] Monocytes % 9.8 % [facility] Monocyte Abs 1.3(H) 0.3 - 0.9 x10(3)/[facility] LABORATORY Eosinophils % 7.2 % [facility] Eosinophils Abs 0.9(H) 0.0 - 0.4 x10(3)/[facility] LABORATORY Basophils % 0.8 % [facility] Basophils Abs 0.1 0.0 - 0.1 x10(3)/[facility] LABORATORY Immature Gran % 3.60 % [facility] Comment: Immature granulocytes(IG's)percentage and absolute count will include metamyelocytes, myelocytes, and promyelocytes. Blood smears from CBCs yielding IG's will be scanned manually for concordance. If this scan disagrees with the automated IG or if promyelocytes are noted, a manual differential will be performed. Nory Gran Abs 0.47(H) 0.00 - 0.04 x10(3)/[facility] LAB[facility]ATORY Blood specimen (specimen) 04/10/2020 3:14 AM EST 04/10/2020 3:21 AM EST Narrative Resulting Agency Comment Spec In Lab Anjelica Jordan APRN HEMATOLOGY ORDER MAGAN [facility] [place] [address] * (ABNORMAL) Hemogram (04/10/2020 3:14 AM EST) WBC 13.1(H) 4.0 - 9.5 x10(3)/[facility] LABORATORY RBC 3.17(L) 4.00 - 5.21 x10(6)/[facility] Hemoglobin 9.6(L) 11.7 - 15.5 gm/dL [facility] Hematocrit 28.6(L) 35.7 - 45.8 % [facility] MCV 90.2 82.6 - 94.4 fL [facility] MCH 30.3 27.1 - 32.0 pg [facility] MCHC 33.6 31.7 - 35.0 gm/dL [facility] Platelets 429(H) 145 - 357 x10(3)/[facility] LABORATORY RDWSD 42.9 37.0 - 46.0 [facility] LABORATORY RDWCV 13.0 11.5 - 14.1 % [facility] MPV 10.2 7.6 - 12.9 [facility] LABORATORY nRBC % Auto 0.0 % [facility] nRBC Abs Auto 0.000 0.000 - 0.000 x10(3)/[facility] LAB[facility]ATORY Blood specimen (specimen) 04/10/2020 3:14 AM EST 04/10/2020 3:21 AM EST Narrative Resulting Agency Comment Spec In Lab Anjelica Jordan MEAL COOKER HEMATOLOGY ORDER MAGAN Performing Organization Address City/[facility]/ZIP Co de Phone Number [facility] [place] [address] * Phosphorus (04/10/2020 3:14 AM EST) Phosphorus 3.4 2.5 - 4.5 mg/dL [facility] Blood specimen (specimen) 04/10/2020 3:14 AM EST 04/10/2020 3:21 AM EST Narrative Resulting Agency Comment Spec In Lab Anjelica Jordan MEAL COOKER CHEMISTRY ORDERA BLES Performing Organization Address City/[facility]/ZIP Co de Phone Number [facility] [place] [address] * (ABNORMAL) Magnesium (04/10/2020 3:14 AM EST) Magnesium 0.64(L) 0.69 - 1.07 mmol/L [facility] Blood specimen (specimen) 04/10/2020 3:14 AM EST 04/10/2020 3:21 AM EST Narrative Resulting Agency Comment Spec In Lab Anjelica Jordan EJSUS ALBERTO CHEMISTRY ORDERA BLES [facility] [place] [address] * (ABNORMAL) Basic Metabolic Panel (non-fasting) (04/10/2020 3:14 AM EST) Glucose Lvl 156 65 - 199 mg/dL [facility] Comment:Diabetes: >=200 mg/d L plus symptoms BUN 16 8 - 18 mg/dL [facility] Creatinine 0.35(L) 0.70 - 1.20 mg/dL [facility] Sodium 131(L) 135 - 145 mmol/L [facility] Potassium 3.9 3.5 - 5.0 mmol/L [facility] Comment: Please note: ??Patients with WBC >100,000 may have falsely elevated Potassium levels. ??For accurate Potassium quantification in these patients send serum separator tube (gold top) for subsequent determinations. ??Contact the Clinical Chemistry Laboratory if there are any questions. Chloride 100 98 - 107 mmol/L [facility] CO2 24 22 - 31 mmol/L [facility] Anion Gap 7 5 - 15 mmol/L [facility] Calcium 7.6(L) 8.5 - 10.5 mg/dL [facility] Estimated GFR 108 >=60 mL/min/1. 73 m?? [facility] Comment: This patient? s estimated glomerular filtration rate (eGFR) is between 108 mL/min/1.73 m2 (patients with less muscle mass) and 125 mL/min/1.73 m2 (patients with more muscle mass) as determined by the CKD-EPI equation. Assessment of eGFR is not appropriate when creatinine concentrations are rapidly changing. For clinical decisions where creatinine clearance will affect therapy, a 24-hour urine creatinine clearance may be advised. Assignment of CKD stage 1 ? 5 for patients with an eGFR near the transition point between stages may be based on clinical assessment of muscle mass and symptoms in addition to eGFR. Blood specimen (specimen) 04/10/2020 3:14 AM EST 04/10/2020 3:21 AM EST Narrative Resulting Agency Comment Spec In Lab Anjelica Jordan APRN CHEMISTRY ORDERA BLES Performing Organization Address [facility] Co de Phone Number [facility] [place] [address] * POCT Glucose (04/10/2020 3:09 AM EST) POC Glucose 155 65 - 199 mg/dL [facility] Comment: Supplemental ranges: <140 mg/dL before meals <180 mg/dL all other times of the day Blood specimen (specimen) 04/10/2020 3:09 AM EST 04/10/2020 3:09 AM EST Davian Carolina MD POINT OF CARE TEST ORDERABLES Performing Organization Address [facility] Co de Phone Number [facility] [place] [address] * POCT Glucose (04/10/2020 12:45 AM EST) POC Glucose 179 65 - 199 mg/dL [facility] Comment: Supplemental ranges: <140 mg/dL before meals <180 mg/dL all other times of the day Blood specimen (specimen) 04/10/2020 12:45 AM EST 04/10/2020 12:45 AM EST Davian Carolina MD POINT OF CARE TEST ORDERABLES Performing Organization Address [facility] Co de Phone Number [facility] [place] [address] * POCT Glucose (04/09/2020 8:11 PM EST) POC Glucose 184 65 - 199 mg/dL [facility] Comment: Supplemental ranges: <140 mg/dL before meals <180 mg/dL all other times of the day Blood specimen (specimen) 04/09/2020 8:11 PM EST 04/09/2020 8:11 PM EST Davian Carolina MD POINT OF CARE TEST ORDERABLES Performing Organization Address [facility] de Phone Number [facility] [place] [address] * POCT Glucose (04/09/2020 4:59 PM EST) POC Glucose 167 65 - 199 mg/dL [facility] Comment: Supplemental ranges: <140 mg/dL before meals <180 mg/dL all other times of the day Blood specimen (specimen) 04/09/2020 4:59 PM EST 04/09/2020 4:59 PM EST Davian Carolina MD POINT OF CARE TEST ORDERABLES Performing Organization Address [facility] Phone Number [facility] [place] [address] * POCT Glucose (04/09/2020 1:16 PM EST) POC Glucose 180 65 - 199 mg/dL [facility] Comment: Supplemental ranges: <140 mg/dL before meals <180 mg/dL all other times of the day Blood specimen (specimen) 04/09/2020 1:16 PM EST 04/09/2020 1:16 PM EST Davian Carolina MD POINT OF CARE TEST ORDERABLES Performing Organization Address [facility] de Phone Number [facility] [place] [address] * POCT Glucose (04/09/2020 8:05 AM EST) POC Glucose 181 65 - 199 mg/dL [facility] Comment: Supplemental ranges: <140 mg/dL before meals <180 mg/dL all other times of the day Blood specimen (specimen) 04/09/2020 8:05 AM EST 04/09/2020 8:05 AM EST Davian Carolina MD POINT OF CARE TEST ORDERABLES Performing Organization Address [facility] Co de Phone Number [facility] [place] [address] * POCT Glucose (04/09/2020 5:18 AM EST) POC Glucose 145 65 - 199 mg/dL [facility] Comment: Supplemental ranges: <140 mg/dL before meals <180 mg/dL all other times of the day Blood specimen (specimen) 04/09/2020 5:18 AM EST 04/09/2020 5:18 AM EST Davian Carolina MD POINT OF CARE TEST ORDERABLES Performing Organization Address [facility] de Phone Number [facility] [place] [address] * POCT Glucose (04/09/2020 12:52 AM EST) Pathologist [facility] POC Glucose 169 65 - 199 mg/dL [facility] Comment: Supplemental ranges: <140 mg/dL before meals <180 mg/dL all other times of the day Blood specimen (specimen) 04/09/2020 12:52 AM EST 04/09/2020 12:52 AM EST Davian Carolina MD POINT OF CARE TEST ORDERABLES Performing Organization Address [facility] Co de Phone Number [facility] [place] [address] * (ABNORMAL) Differential, Automated (04/09/2020 12:30 AM EST) Neutrophils % 62.3 % [facility] Neutr Abs (ANC) 8.42(H) 1.70 - 6.10 x10(3)/mc L [facility] Lymphocytes % 13.7 % [facility] Lymphocytes Abs 1.8 0.9 - 3.2 x10(3)/mc L [facility] Monocytes % 11.0 % [facility] Monocyte Abs 1.5(H) 0.3 - 0.9 x10(3)/[facility] LABORATORY Eosinophils % 7.2 % [facility] Eosinophils Abs 1.0(H) 0.0 - 0.4 x10(3)/[facility] LABORATORY Basophils % 0.9 % [facility] Basophils Abs 0.1 0.0 - 0.1 x10(3)/[facility] LABORATORY Immature Gran % 4.90 % [facility] Comment: Immature granulocytes(IG's)percentage and absolute count will include metamyelocytes, myelocytes, and promyelocytes. Blood smears from CBCs yielding IG's will be scanned manually for concordance. If this scan disagrees with the automated IG or if promyelocytes are noted, a manual differential will be performed. Nory Gran Abs 0.66(H) 0.00 - 0.04 x10(3)/[facility] LABORATORY Blood specimen (specimen) 04/09/2020 12:30 AM EST 04/09/2020 1:16 AM EST Narrative Resulting Agency Comment Spec In Lab Anjelica Jordan APRN HEMATOLOGY ORDER MAGAN [facility] [place] [address] * (ABNORMAL) Hemogram (04/09/2020 12:30 AM EST) WBC 13.5(H) 4.0 - 9.5 x10(3)/[facility] LABORATORY RBC 3.38(L) 4.00 - 5.21 x10(6)/[facility]ORY Hemoglobin 10.1(L) 11.7 - 15.5 gm/dL [facility] Hematocrit 30.4(L) 35.7 - 45.8 % [facility] MCV 89.9 82.6 - 94.4 fL [facility] MCH 29.9 27.1 - 32.0 pg [facility] MCHC 33.2 31.7 - 35.0 gm/dL [facility] Platelets 426(H) 145 - 357 x10(3)/[facility] LABORATORY RDWSD 43.6 37.0 - 46.0 [facility] LABORATORY RDWCV 13.1 11.5 - 14.1 % [facility] MPV 9.9 7.6 - 12.9 [facility] LABORATORY nRBC % Auto 0.0 % [facility] nRBC Abs Auto 0.000 0.000 - 0.000 x10(3)/[facility] LAB[facility]ORY Blood specimen (specimen) 04/09/2020 12:30 AM EST 04/09/2020 1:16 AM EST Narrative Resulting Agency Comment Spec In Lab Anjelica Jordan APRN HEMATOLOGY ORDER MAGAN Performing Organization Address [facility] de Phone Number [facility] [place] [address] * Phosphorus (04/09/2020 12:30 AM EST) Phosphorus 2.7 2.5 - 4.5 mg/dL [facility] Blood specimen (specimen) 04/09/2020 12:30 AM EST 04/09/2020 1:16 AM EST Narrative Resulting Agency Comment Spec In Lab Anjelica Jordan APRN CHEMISTRY ORDERA BLES Performing Organization Address [facility] Co de Phone Number [facility] [place] [address] * Magnesium (04/09/2020 12:30 AM EST) Magnesium 0.78 0.69 - 1.07 mmol/L [facility] Blood specimen (specimen) 04/09/2020 12:30 AM EST 04/09/2020 1:16 AM EST Narrative Resulting Agency Comment Spec In Lab Anjelica Jordan MEAL COOKER CHEMISTRY ORDERA BLES [facility] [place] [address] * (ABNORMAL) Basic Metabolic Panel (non-fasting) (04/09/2020 12:30 AM EST) Glucose Lvl 157 65 - 199 mg/dL [facility] Comment:Diabetes: >=200 mg/d L plus symptoms BUN 15 8 - 18 mg/dL [facility] Creatinine 0.31(L) 0.70 - 1.20 mg/dL [facility] Sodium 133(L) 135 - 145 mmol/L [facility] Potassium 3.9 3.5 - 5.0 mmol/L [facility] Comment: Please note: ??Patients with WBC >100,000 may have falsely elevated Potassium levels. ??For accurate Potassium quantification in these patients send serum separator tube (gold top) for subsequent determinations. ??Contact the Clinical Chemistry Laboratory if there are any questions. Chloride 102 98 - 107 mmol/L [facility] CO2 23 22 - 31 mmol/L [facility] Anion Gap 8 5 - 15 mmol/L [facility] Calcium 7.7(L) 8.5 - 10.5 mg/dL [facility] Estimated GFR 112 >=60 mL/min/1. 73 m?? [facility] Comment: This patient? s estimated glomerular filtration rate (eGFR) is between 112 mL/min/1.73 m2 (patients with less muscle mass) and 130 mL/min/1.73 m2 (patients with more muscle mass) as determined by the CKD-EPI equation. Assessment of eGFR is not appropriate when creatinine concentrations are rapidly changing. For clinical decisions where creatinine clearance will affect therapy, a 24-hour urine creatinine clearance may be advised. Assignment of CKD stage 1 ? 5 for patients with an eGFR near the transition point between stages may be based on clinical assessment of muscle mass and symptoms in addition to eGFR. Blood specimen (specimen) 04/09/2020 12:30 AM EST 04/09/2020 1:16 AM EST Narrative Resulting Agency Comment Spec In Lab Anjelica Jordan APRN CHEMISTRY ORDERA BLES Performing Organization Address [facility] Co de Phone Number [facility] [place] [address] * POCT Glucose (04/08/2020 9:03 PM EST) POC Glucose 169 65 - 199 mg/dL [facility] Comment: Supplemental ranges: <140 mg/dL before meals <180 mg/dL all other times of the day Blood specimen (specimen) 04/08/2020 9:03 PM EST 04/08/2020 9:03 PM EST Davian Carolina MD POINT OF CARE TEST ORDERABLES Performing Organization Address [facility] Phone Number [facility] [place] [address] * C. Difficile Screen (04/08/2020 5:52 PM EST) C Diff Screen Negative Negative [facility] Comment: Ag/Tox Neg C. diff?? Negative Clostridium difficile is not present in the specimen. If patient is having diarrhea suspected to be from an infectious cause, then Soap & Water Contact Precautions are still required. Stool specimen (specimen) 04/08/2020 5:52 PM EST 04/08/2020 6:17 PM EST Narrative Resulting Agency Comment Spec In Lab Davian Carolina MD MICROBIOLOGY - GEN ERAL ORDERABLES Performing Organization Address [facility] Co de Phone Number [facility] [place] [address] * POCT Glucose (04/08/2020 3:42 PM EST) POC Glucose 127 65 - 199 mg/dL [facility] Comment: Supplemental ranges: <140 mg/dL before meals <180 mg/dL all other times of the day Blood specimen (specimen) 04/08/2020 3:42 PM EST 04/08/2020 3:42 PM EST Davian Carolina MD POINT OF CARE TEST ORDERABLES Performing Organization Address [facility] Co de Phone Number [facility] [place] [address] * POCT Glucose (04/08/2020 12:31 PM EST) POC Glucose 167 65 - 199 mg/dL [facility] Comment: Supplemental ranges: <140 mg/dL before meals <180 mg/dL all other times of the day Blood specimen (specimen) 04/08/2020 12:31 PM EST 04/08/2020 12:31 PM EST Davian Carolina MD POINT OF CARE TEST ORDERABLES Performing Organization Address [facility] Phone Number [facility] [place] [address] * POCT Glucose (04/08/2020 7:28 AM EST) POC Glucose 199 65 - 199 mg/dL [facility] Comment: Supplemental ranges: <140 mg/dL before meals <180 mg/dL all other times of the day Blood specimen (specimen) 04/08/2020 7:28 AM EST 04/08/2020 7:28 AM EST Davian Carolina MD POINT OF CARE TEST ORDERABLES Performing Organization Address [facility] Co de Phone Number [facility] [place] [address] * POCT Glucose (04/08/2020 3:25 AM EST) POC Glucose 146 65 - 199 mg/dL [facility] Comment: Supplemental ranges: <140 mg/dL before meals <180 mg/dL all other times of the day Blood specimen (specimen) 04/08/2020 3:25 AM EST 04/08/2020 3:25 AM EST Davian Carolina MD POINT OF CARE TEST ORDERABLES Performing Organization Address City/[facility]/ZIP Co de Phone Number [facility] [place] [address] * (ABNORMAL) Differential, Automated (04/08/2020 12:30 AM EST) Neutrophils % 69.8 % [facility] Neutr Abs (ANC) 11.23(H) 1.70 - 6.10 x10(3)/[facility] LABORATORY Lymphocytes % 10.5 % [facility] Lymphocytes Abs 1.7 0.9 - 3.2 x10(3)/[facility] LABORATORY Monocytes % 11.2 % [facility] Monocyte Abs 1.8(H) 0.3 - 0.9 x10(3)/[facility] LABORATORY Eosinophils % 4.0 % [facility] Eosinophils Abs 0.6(H) 0.0 - 0.4 x10(3)/[facility] LABORATORY Basophils % 0.6 % [facility] Basophils Abs 0.1 0.0 - 0.1 x10(3)/[facility] LABORATORY Immature Gran % 3.90 % [facility] Comment: Immature granulocytes(IG's)percentage and absolute count will include metamyelocytes, myelocytes, and promyelocytes. Blood smears from CBCs yielding IG's will be scanned manually for concordance. If this scan disagrees with the automated IG or if promyelocytes are noted, a manual differential will be performed. Nory Gran Abs 0.63(H) 0.00 - 0.04 x10(3)/[facility] LABOR[facility]ORY Blood specimen (specimen) 04/08/2020 12:30 AM EST 04/08/2020 12:38 AM EST Narrative Resulting Agency Comment Spec In Lab Anjelica Jordan APRN HEMATOLOGY ORDER MAGAN Performing Organization Address City/[facility]/[place] [address] * (ABNORMAL) Hemogram (04/08/2020 12:30 AM EST) WBC 16.1(H) 4.0 - 9.5 x10(3)/[facility] LABORATORY RBC 3.24(L) 4.00 - 5.21 x10(6)/[facility] LABORATORY Hemoglobin 9.8(L) 11.7 - 15.5 gm/dL [facility] Hematocrit 28.6(L) 35.7 - 45.8 % [facility] MCV 88.3 82.6 - 94.4 fL [facility] MCH 30.2 27.1 - 32.0 pg [facility] MCHC 34.3 31.7 - 35.0 gm/dL [facility] Platelets 477(H) 145 - 357 x10(3)/[facility] LABORATORY RDWSD 43.0 37.0 - 46.0 fL [facility] RDWCV 13.2 11.5 - 14.1 % [facility] MPV 10.0 7.6 - 12.9 fL [facility] nRBC % Auto 0.0 % [facility] nRBC Abs Auto 0.000 0.000 - 0.000 x10(3)/[facility] LABORATORY Blood specimen (specimen) 04/08/2020 12:30 AM EST 04/08/2020 12:38 AM EST Narrative Resulting Agency Comment Spec In Lab Anjelica Jordan APRN HEMATOLOGY ORDER MAGAN [facility] [place] [place] [address] * Phosphorus (04/08/2020 12:30 AM EST) Phosphorus 3.1 2.5 - 4.5 mg/dL [facility] Blood specimen (specimen) 04/08/2020 12:30 AM EST 04/08/2020 12:38 AM EST Narrative Resulting Agency Comment Spec In Lab Anjelica Lissa Nikki MEAL COOKER CHEMISTRY ORDERA BLES Performing Organization Address City/[facility]/ZIP Co de Phone Number [facility] [place] [address] * Magnesium (04/08/2020 12:30 AM EST) Magnesium 0.69 0.69 - 1.07 mmol/L [facility] Blood specimen (specimen) 04/08/2020 12:30 AM EST 04/08/2020 12:38 AM EST Narrative Resulting Agency Comment Spec In Lab Anjelica Jordan MEAL COOKER CHEMISTRY ORDERA BLES Performing Organization Address [facility] de Phone Number [facility] [place] [address] * (ABNORMAL) Basic Metabolic Panel (non-fasting) (04/08/2020 12:30 AM EST) Glucose Lvl 147 65 - 199 mg/dL [facility] Comment:Diabetes: >=200 mg/d L plus symptoms BUN 15 8 - 18 mg/dL [facility] Creatinine 0.29(L) 0.70 - 1.20 mg/dL [facility] Sodium 132(L) 135 - 145 mmol/L [facility] Potassium 3.5 3.5 - 5.0 mmol/L [facility] Comment: Please note: ??Patients with WBC >100,000 may have falsely elevated Potassium levels. ??For accurate Potassium quantification in these patients send serum separator tube (gold top) for subsequent determinations. ??Contact the Clinical Chemistry Laboratory if there are any questions. Chloride 101 98 - 107 mmol/L [facility] CO2 24 22 - 31 mmol/L [facility] Anion Gap 7 5 - 15 mmol/L [facility] Calcium 7.7(L) 8.5 - 10.5 mg/dL [facility] Estimated GFR 115 >=60 mL/min/1. 73 m?? [facility] Comment: This patient? s estimated glomerular filtration rate (eGFR) is between 115 mL/min/1.73 m2 (patients with less muscle mass) and 133 mL/min/1.73 m2 (patients with more muscle mass) as determined by the CKD-EPI equation. Assessment of eGFR is not appropriate when creatinine concentrations are rapidly changing. For clinical decisions where creatinine clearance will affect therapy, a 24-hour urine creatinine clearance may be advised. Assignment of CKD stage 1 ? 5 for patients with an eGFR near the transition point between stages may be based on clinical assessment of muscle mass and symptoms in addition to eGFR. Blood specimen (specimen) 04/08/2020 12:30 AM EST 04/08/2020 12:38 AM EST Narrative Resulting Agency Comment Spec In Lab Anjelica Jordan APRN CHEMISTRY ORDERA BLES Performing Organization Address [facility]/ZIP Co de Phone Number [facility] [place] [address] * POCT Glucose (04/08/2020 12:06 AM EST) POC Glucose 152 65 - 199 mg/dL [facility] Comment: Supplemental ranges: <140 mg/dL before meals <180 mg/dL all other times of the day Blood specimen (specimen) 04/08/2020 12:06 AM EST 04/08/2020 12:06 AM EST Davian Carolina MD POINT OF CARE TEST ORDERABLES [facility] [place] [address] * POCT Glucose (04/07/2020 7:42 PM EST) POC Glucose 137 65 - 199 mg/dL [facility] Comment: Supplemental ranges: <140 mg/dL before meals <180 mg/dL all other times of the day Blood specimen (specimen) 04/07/2020 7:42 PM EST 04/07/2020 7:42 PM EST Davian Carolina MD POINT OF CARE TEST ORDERABLES Performing Organization Address [facility] Phone Number [facility] [place] [address] * POCT Glucose (04/07/2020 3:46 PM EST) POC Glucose 148 65 - 199 mg/dL [facility] Comment: Supplemental ranges: <140 mg/dL before meals <180 mg/dL all other times of the day Blood specimen (specimen) 04/07/2020 3:46 PM EST 04/07/2020 3:46 PM EST Davian Carolina MD POINT OF CARE TEST ORDERABLES Performing Organization Address [facility] de Phone Number [facility] [place] [address] * POCT Glucose (04/07/2020 11:18 AM EST) POC Glucose 154 65 - 199 mg/dL [facility] Comment: Supplemental ranges: <140 mg/dL before meals <180 mg/dL all other times of the day Blood specimen (specimen) 04/07/2020 11:18 AM EST 04/07/2020 11:18 AM EST Davian Carolina MD POINT OF CARE TEST ORDERABLES Performing Organization Address [facility] de Phone Number [facility] [place] [address] * POCT Glucose (04/07/2020 7:32 AM EST) POC Glucose 138 65 - 199 mg/dL [facility] Comment: Supplemental ranges: <140 mg/dL before meals <180 mg/dL all other times of the day Blood specimen (specimen) 04/07/2020 7:32 AM EST 04/07/2020 7:32 AM EST Davian Carolina MD POINT OF CARE TEST ORDERABLES [facility] [place] [address] * (ABNORMAL) Differential, Automated (04/07/2020 3:50 AM EST) Neutrophils % 66.9 % [facility] Neutr Abs (ANC) 9.01(H) 1.70 - 6.10 x10(3)/[facility] LABORATORY Lymphocytes % 10.8 % [facility] Lymphocytes Abs 1.5 0.9 - 3.2 x10(3)/[facility] LABORATORY Monocytes % 12.5 % [facility] Monocyte Abs 1.7(H) 0.3 - 0.9 x10(3)/[facility] LABORATORY Eosinophils % 4.8 % [facility] Eosinophils Abs 0.6(H) 0.0 - 0.4 x10(3)/[facility] LABORATORY Basophils % 0.9 % [facility] Basophils Abs 0.1 0.0 - 0.1 x10(3)/[facility] LABORATORY Immature Gran % 4.10 % [facility] Comment: Immature granulocytes(IG's)percentage and absolute count will include metamyelocytes, myelocytes, and promyelocytes. Blood smears from CBCs yielding IG's will be scanned manually for concordance. If this scan disagrees with the automated IG or if promyelocytes are noted, a manual differential will be performed. Nory Gran Abs 0.55(H) 0.00 - 0.04 x10(3)/[facility] LABORATORY Blood specimen (specimen) 04/07/2020 3:50 AM EST 04/07/2020 4:01 AM EST Narrative Resulting Agency Comment Spec In Lab Anjelica Jordan APRN HEMATOLOGY ORDER MAGAN [facility] [place] [address] * (ABNORMAL) Hemogram (04/07/2020 3:50 AM EST) WBC 13.5(H) 4.0 - 9.5 x10(3)/[facility] LABORATORY RBC 3.14(L) 4.00 - 5.21 x10(6)/[facility] LABORATORY Hemoglobin 9.6(L) 11.7 - 15.5 gm/dL [facility] Hematocrit 28.1(L) 35.7 - 45.8 % [facility] MCV 89.5 82.6 - 94.4 fL [facility] MCH 30.6 27.1 - 32.0 pg [facility] MCHC 34.2 31.7 - 35.0 gm/dL [facility] Platelets 453(H) 145 - 357 x10(3)/[facility] LABORATORY RDWSD 44.5 37.0 - 46.0 [facility] LABORATORY RDWCV 13.5 11.5 - 14.1 % [facility] MPV 9.7 7.6 - 12.9 fL [facility] nRBC % Auto 0.0 % [facility] nRBC Abs Auto 0.000 0.000 - 0.000 x10(3)/[facility] LABORATORY Blood specimen (specimen) 04/07/2020 3:50 AM EST 04/07/2020 4:01 AM EST Narrative Resulting Agency Comment Spec In Lab Anjelica Jordan APRN HEMATOLOGY ORDER MAGAN [facility] [place] [address] * Phosphorus (04/07/2020 3:50 AM EST) Phosphorus 3.3 2.5 - 4.5 mg/dL [facility] Blood specimen (specimen) 04/07/2020 3:50 AM EST 04/07/2020 4:01 AM EST Narrative Resulting Agency Comment Spec In Lab Anjelica Jordan MEAL COOKER CHEMISTRY ORDERA BLES Performing Organization Address City/[facility]/ZIP Co de Phone Number [facility] [place] [address] * Magnesium (04/07/2020 3:50 AM EST) Magnesium 0.82 0.69 - 1.07 mmol/L [facility] Blood specimen (specimen) 04/07/2020 3:50 AM EST 04/07/2020 4:01 AM EST Narrative Resulting Agency Comment Spec In Lab Anjelica Jordan MEAL COOKER CHEMISTRY ORDERA BLES Performing Organization Address [facility] Co de Phone Number [facility] [place] [address] * (ABNORMAL) Basic Metabolic Panel (non-fasting) (04/07/2020 3:50 AM EST) Pathologist [facility] Glucose Lvl 166 65 - 199 mg/dL [facility] Comment:Diabetes: >=200 mg/d L plus symptoms BUN 16 8 - 18 mg/dL [facility] Creatinine 0.34(L) 0.70 - 1.20 mg/dL [facility] Sodium 134(L) 135 - 145 mmol/L [facility] Potassium 3.6 3.5 - 5.0 mmol/L [facility] Comment: Please note: ??Patients with WBC >100,000 may have falsely elevated Potassium levels. ??For accurate Potassium quantification in these patients send serum separator tube (gold top) for subsequent determinations. ??Contact the Clinical Chemistry Laboratory if there are any questions. Chloride 101 98 - 107 mmol/L [facility] CO2 24 22 - 31 mmol/L [facility] Anion Gap 9 5 - 15 mmol/L [facility] Calcium 7.7(L) 8.5 - 10.5 mg/dL [facility] Estimated GFR 109 >=60 mL/min/1. 73 m?? [facility] Comment: This patient? s estimated glomerular filtration rate (eGFR) is between 109 mL/min/1.73 m2 (patients with less muscle mass) and 126 mL/min/1.73 m2 (patients with more muscle mass) as determined by the CKD-EPI equation. Assessment of eGFR is not appropriate when creatinine concentrations are rapidly changing. For clinical decisions where creatinine clearance will affect therapy, a 24-hour urine creatinine clearance may be advised. Assignment of CKD stage 1 ? 5 for patients with an eGFR near the transition point between stages may be based on clinical assessment of muscle mass and symptoms in addition to eGFR. Blood specimen (specimen) 04/07/2020 3:50 AM EST 04/07/2020 4:01 AM EST Narrative Resulting Agency Comment Spec In Lab Anjelica Jordan APRN CHEMISTRY ORDERA BLES Performing Organization Address City/[facility]/ZIP Co de Phone Number [facility] [place] [address] * POCT Glucose (04/07/2020 3:41 AM EST) POC Glucose 160 65 - 199 mg/dL [facility] Comment: Supplemental ranges: <140 mg/dL before meals <180 mg/dL all other times of the day Blood specimen (specimen) 04/07/2020 3:41 AM EST 04/07/2020 3:41 AM EST Davian Carolina MD POINT OF CARE TEST ORDERABLES [facility] [place] [address] * POCT Glucose (04/06/2020 11:51 PM EST) POC Glucose 159 65 - 199 mg/dL [facility] Comment: Supplemental ranges: <140 mg/dL before meals <180 mg/dL all other times of the day Blood specimen (specimen) 04/06/2020 11:51 PM EST 04/06/2020 11:51 PM EST Davian Carolina MD POINT OF CARE TEST ORDERABLES Performing Organization Address [facility] Co de Phone Number [facility] [place] [address] * POCT Glucose (04/06/2020 8:06 PM EST) POC Glucose 145 65 - 199 mg/dL [facility] Comment: Supplemental ranges: <140 mg/dL before meals <180 mg/dL all other times of the day Blood specimen (specimen) 04/06/2020 8:06 PM EST 04/06/2020 8:06 PM EST Davian Carolina MD POINT OF CARE TEST ORDERABLES Performing Organization Address [facility] Co de Phone Number [facility] [place] [address] * POCT Glucose (04/06/2020 4:02 PM EST) POC Glucose 177 65 - 199 mg/dL [facility] Comment: Supplemental ranges: <140 mg/dL before meals <180 mg/dL all other times of the day Blood specimen (specimen) 04/06/2020 4:02 PM EST 04/06/2020 4:02 PM EST Davian Carolina MD POINT OF CARE TEST ORDERABLES Performing Organization Address [facility] Co de Phone Number [facility] [place] [address] * POCT Glucose (04/06/2020 12:12 PM EST) POC Glucose 156 65 - 199 mg/dL [facility] Comment: Supplemental ranges: <140 mg/dL before meals <180 mg/dL all other times of the day Blood specimen (specimen) 04/06/2020 12:12 PM EST 04/06/2020 12:12 PM EST Davian Carolina MD POINT OF CARE TEST ORDERABLES [facility] [place] [address] * POCT Glucose (04/06/2020 7:50 AM EST) Pathologist [facility] POC Glucose 170 65 - 199 mg/dL [facility] Comment: Supplemental ranges: <140 mg/dL before meals <180 mg/dL all other times of the day Blood specimen (specimen) 04/06/2020 7:50 AM EST 04/06/2020 7:50 AM EST Davian Carolina MD POINT OF CARE TEST ORDERABLES Performing Organization Address [facility] Phone Number [facility] [place] [address] * POCT Glucose (04/06/2020 4:43 AM EST) [facility] POC Glucose 198 65 - 199 mg/dL [facility] Comment: Supplemental ranges: <140 mg/dL before meals <180 mg/dL all other times of the day Blood specimen (specimen) 04/06/2020 4:43 AM EST 04/06/2020 4:43 AM EST Davian Carolina MD POINT OF CARE TEST ORDERABLES Performing Organization Address [facility] Co nc Phone Number [facility] [place] [address] * (ABNORMAL) Differential, Automated (04/06/2020 1:30 AM EST) Neutrophils % 77.8 % [facility] Neutr Abs (ANC) 12.95(H) 1.70 - 6.10 x10(3)/mc L [facility] Lymphocytes % 6.2 % [facility] Lymphocytes Abs 1.0 0.9 - 3.2 x10(3)/mc L [facility] Monocytes % 9.8 % [facility] Monocyte Abs 1.6(H) 0.3 - 0.9 x10(3)/mc L [facility] Eosinophils % 0.8 % [facility] Eosinophils Abs 0.1 0.0 - 0.4 x10(3)/[facility] LABORATORY Basophils % 0.5 % [facility] Basophils Abs 0.1 0.0 - 0.1 x10(3)/[facility] LABORATORY Immature Gran % 4.90 % [facility] Comment: Immature granulocytes(IG's)percentage and absolute count will include metamyelocytes, myelocytes, and promyelocytes. Blood smears from CBCs yielding IG's will be scanned manually for concordance. If this scan disagrees with the automated IG or if promyelocytes are noted, a manual differential will be performed. Nory Gran Abs 0.81(H) 0.00 - 0.04 x10(3)/[facility] LABORATORY Blood specimen (specimen) 04/06/2020 1:30 AM EST 04/06/2020 1:40 AM EST Narrative Resulting Agency Comment Spec In Lab Anjelica Jordan APRN HEMATOLOGY ORDER MAGAN [facility] [place] [address] * (ABNORMAL) Hemogram (04/06/2020 1:30 AM EST) WBC 16.7(H) 4.0 - 9.5 x10(3)/[facility] LABORATORY RBC 3.04(L) 4.00 - 5.21 x10(6)/[facility] LABORATORY Hemoglobin 9.2(L) 11.7 - 15.5 gm/dL [facility] Hematocrit 27.3(L) 35.7 - 45.8 % [facility] MCV 89.8 82.6 - 94.4 fL [facility] MCH 30.3 27.1 - 32.0 pg [facility] MCHC 33.7 31.7 - 35.0 gm/dL [facility] Platelets 445(H) 145 - 357 x10(3)/[facility] LABORATORY RDWSD 43.9 37.0 - 46.0 [facility] LABORATORY RDWCV 13.2 11.5 - 14.1 % [facility] MPV 9.9 7.6 - 12.9 [facility] LABORATORY nRBC % Auto 0.0 % [facility] nRBC Abs Auto 0.000 0.000 - 0.000 x10(3)/[facility] LABORATORY Blood specimen (specimen) 04/06/2020 1:30 AM EST 04/06/2020 1:40 AM EST Narrative Resulting Agency Comment Spec In Lab Anjelica Jordan APRN HEMATOLOGY ORDER MAGAN Performing Organization Address [facility] Phone Number [facility] [place] [address] * Phosphorus (04/06/2020 1:30 AM EST) Phosphorus 3.3 2.5 - 4.5 mg/dL [facility] Blood specimen (specimen) 04/06/2020 1:30 AM EST 04/06/2020 1:40 AM EST Narrative Resulting Agency Comment Spec In Lab Anjelica Jordan APRN CHEMISTRY ORDERA BLES Performing Organization Address [facility] de Phone Number [facility] [place] [address] * Magnesium (04/06/2020 1:30 AM EST) Magnesium 0.88 0.69 - 1.07 mmol/L [facility] Blood specimen (specimen) 04/06/2020 1:30 AM EST 04/06/2020 1:40 AM EST Narrative Resulting Agency Comment Spec In Lab Anjelica Jordan MEAL COOKER CHEMISTRY ORDERA BLES Performing Organization Address [facility]/ZIP Co de Phone Number [facility] [place] [address] * (ABNORMAL) Basic Metabolic Panel (non-fasting) (04/06/2020 1:30 AM EST) Glucose Lvl 180 65 - 199 mg/dL [facility] Comment:Diabetes: >=200 mg/d L plus symptoms BUN 16 8 - 18 mg/dL [facility] Creatinine 0.42(L) 0.70 - 1.20 mg/dL [facility] Sodium 137 135 - 145 mmol/L [facility] Potassium 3.6 3.5 - 5.0 mmol/L [facility] Comment: Please note: ??Patients with WBC >100,000 may have falsely elevated Potassium levels. ??For accurate Potassium quantification in these patients send serum separator tube (gold top) for subsequent determinations. ??Contact the Clinical Chemistry Laboratory if there are any questions. Chloride 102 98 - 107 mmol/L [facility] CO2 26 22 - 31 mmol/L [facility] Anion Gap 9 5 - 15 mmol/L [facility] Calcium 7.7(L) 8.5 - 10.5 mg/dL [facility] Estimated GFR 102 >=60 mL/min/1. 73 m?? [facility] Comment: This patient? s estimated glomerular filtration rate (eGFR) is between 102 mL/min/1.73 m2 (patients with less muscle mass) and 118 mL/min/1.73 m2 (patients with more muscle mass) as determined by the CKD-EPI equation. Assessment of eGFR is not appropriate when creatinine concentrations are rapidly changing. For clinical decisions where creatinine clearance will affect therapy, a 24-hour urine creatinine clearance may be advised. Assignment of CKD stage 1 ? 5 for patients with an eGFR near the transition point between stages may be based on clinical assessment of muscle mass and symptoms in addition to eGFR. Blood specimen (specimen) 04/06/2020 1:30 AM EST 04/06/2020 1:40 AM EST Narrative Resulting Agency Comment Spec In Lab Anjelica Jordan APRN CHEMISTRY ORDERA BLES Performing Organization Address [facility] Co de Phone Number [facility] [place] [address] * POCT Glucose (04/05/2020 11:23 PM EST) POC Glucose 186 65 - 199 mg/dL [facility] Comment: Supplemental ranges: <140 mg/dL before meals <180 mg/dL all other times of the day Blood specimen (specimen) 04/05/2020 11:23 PM EST 04/05/2020 11:23 PM EST Davian Carolina MD POINT OF CARE TEST ORDERABLES Performing Organization Address [facility] de Phone Number [facility] [place] [address] * POCT Glucose (04/05/2020 8:03 PM EST) POC Glucose 150 65 - 199 mg/dL [facility] Comment: Supplemental ranges: <140 mg/dL before meals <180 mg/dL all other times of the day Blood specimen (specimen) 04/05/2020 8:03 PM EST 04/05/2020 8:03 PM EST Davian Carolina MD POINT OF CARE TEST ORDERABLES Performing Organization Address [facility] Co de Phone Number [facility] [place] [address] * POCT Glucose (04/05/2020 4:11 PM EST) POC Glucose 171 65 - 199 mg/dL [facility] Comment: Supplemental ranges: <140 mg/dL before meals <180 mg/dL all other times of the day Blood specimen (specimen) 04/05/2020 4:11 PM EST 04/05/2020 4:11 PM EST Davian Carolina MD POINT OF CARE TEST ORDERABLES Performing Organization Address City/[facility]/ZIP Co de Phone Number [facility] [place] [address] * XR Chest PA & Lateral (Generic) (04/05/2020 2:59 PM EST) Anatomical Region Laterality Modality Chest N/A Digital Radiogra phy Impressions 04/05/2020 3:28 PM EST 1. ??Significant, increasing left base infiltrate with adjacent effusion. 2. ??Left interstitial infiltrate extending to the peripheral consolidation in the left chest accentuated by overlapping structures. 3. ??Small right pleural effusion. 4. ??Bilateral subcutaneous emphysema 5. ??Stable PICC and enteric tube Thank you for letting us participate in the care of this patient. For questions regarding this report, please contact the number below. ? Electronically signed by: Ayan Caballero MD, [facility] ([phone]), at 04/05/2020 3:28 PM Narrative 04/05/2020 3:28 PM EST EXAMINATION: XR CHEST PA AND LATERAL (GENERIC) CLINICAL HISTORY: 74 years, Female, Recent nosocomial pneumonia s/p possible aspiration during NG placement with persistent leukocyotosis and O2 requirement TECHNIQUE: PA and lateral views of the chest, 2 views COMPARISON: None FINDINGS: Enteric tube is below the hemidiaphragm and coiled in the gastric fundus. Left extremity PICC is in stable position with its tip in the superior vena cava. Heart is upper limits of normal in size. There is left pleural effusion and left base consolidation. Interstitial infiltrate has increased in the left perihilar region and now extends to the left periphery of the chest where there appears to be increasing density. The appearance is increased by overlapping scapula and soft tissue as well as a portion of the external enteric tube. These findings could represent loculated fluid and/or parenchymal consolidation. There is small right pleural effusion and right base atelectasis. Remaining right lung is clear and slightly hyperinflated Subcutaneous emphysema is demonstrated in the chest. There is no appreciable pneumothorax. Postsurgical changes demonstrated in the right central abdomen Procedure Note Ayan Caballero MD - 04/05/2020 EXAMINATION: XR CHEST PA AND LATERAL (GENERIC) CLINICAL HISTORY: 74 years, Female, Recent nosocomial pneumonia s/ppossible aspiration during NG placement with persistent leukocyotosis and [id number] TECHNIQUE: PA and lateral views of the chest, 2 views COMPARISON: None FINDINGS: Enteric tube is below the hemidiaphragm and coiled in the gastric fundus.Left extremity PICC is in stable position with its tip in the superior venacava. Heart is upper limits of normal in size. There is left pleural effusionand left base consolidation. Interstitial infiltrate has increased in the left perihilar region andnow extends to the left periphery of the chest where there appears to beincreasing density. The appearance is increased by overlapping scapula and softtissue as well as a portion of the external enteric tube. These findings couldrepresent loculated fluid and/or parenchymal consolidation. There is small right pleural effusion and right base atelectasis.Remaining right lung is clear and slightly hyperinflated Subcutaneous emphysema is demonstrated in the chest. There is noappreciable pneumothorax. Postsurgical changes demonstrated in the right central abdomen IMPRESSION 1. Significant, increasing left base infiltrate with adjacent effusion. 2. Left interstitial infiltrate extending to the peripheral consolidationin the left chest accentuated by overlapping structures. 3. Small right pleural effusion. 4. Bilateral subcutaneous emphysema 5. Stable PICC and enteric tube Thank you for letting us participate in the care of this patient. Forquestions regarding this report, please contact the number below. Electronically signed by: Ayan Caballero MD, [facility]([phone]), at 04/05/2020 3:28 PM Davian Carolina MD IMG DX ORDERABLES * (ABNORMAL) POCT Glucose (04/05/2020 11:36 AM EST) POC Glucose 202(H) 65 - 199 mg/dL [facility] Comment: Supplemental ranges: <140 mg/dL before meals <180 mg/dL all other times of the day Blood specimen (specimen) 04/05/2020 11:36 AM EST 04/05/2020 11:36 AM EST Davina Carolina MD POINT OF CARE TEST ORDERABLES Performing Organization Address [facility]/ZIP Co de Phone Number [facility] [place] [address] * POCT Glucose (04/05/2020 8:06 AM EST) POC Glucose 168 65 - 199 mg/dL [facility] Comment: Supplemental ranges: <140 mg/dL before meals <180 mg/dL all other times of the day Blood specimen (specimen) 04/05/2020 8:06 AM EST 04/05/2020 8:06 AM EST Davian Carolina MD POINT OF CARE TEST ORDERABLES Performing Organization Address [facility] Co de Phone Number [facility] [place] [address] * POCT Glucose (04/05/2020 4:03 AM EST) POC Glucose 167 65 - 199 mg/dL [facility] Comment: Supplemental ranges: <140 mg/dL before meals <180 mg/dL all other times of the day Blood specimen (specimen) 04/05/2020 4:03 AM EST 04/05/2020 4:03 AM EST Davian Carolina MD POINT OF CARE TEST ORDERABLES Performing Organization Address [facility] Co de Phone Number [facility] [place] [address] * Scan, Peripheral Blood (04/05/2020 1:10 AM EST) Plat Estimate Increased [facility] RBC Morphology Normal [facility] Dohle Bodies Present [facility] Blood specimen (specimen) 04/05/2020 1:10 AM EST 04/05/2020 1:25 AM EST Narrative Resulting Agency Comment Spec In Lab Anjelica Jordan APRN HEMATOLOGY ORDER MAGAN Performing Organization Address City/[facility]/ZIP Co de Phone Number [facility] [place] [address] * (ABNORMAL) Differential, Automated (04/05/2020 1:10 AM EST) Neutrophils % 81.7 % [facility] Neutr Abs (ANC) 17.48(H) 1.70 - 6.10 x10(3)/[facility] Lymphocytes % 6.8 % [facility] Lymphocytes Abs 1.4 0.9 - 3.2 x10(3)/[facility] Monocytes % 7.2 % [facility] Monocyte Abs 1.5(H) 0.3 - 0.9 x10(3)/[facility] Eosinophils % 0.7 % [facility] Eosinophils Abs 0.2 0.0 - 0.4 x10(3)/[facility] Basophils % 0.5 % [facility] Basophils Abs 0.1 0.0 - 0.1 x10(3)/[facility] Immature Gran % 3.10 % [facility] Comment: Immature granulocytes(IG's)percentage and absolute count will include metamyelocytes, myelocytes, and promyelocytes. Blood smears from CBCs yielding IG's will be scanned manually for concordance. If this scan disagrees with the automated IG or if promyelocytes are noted, a manual differential will be performed. Nory Gran Abs 0.67(H) 0.00 - 0.04 x10(3)/[facility] Blood specimen (specimen) 04/05/2020 1:10 AM EST 04/05/2020 1:25 AM EST Narrative Resulting Agency Comment Spec In Lab Anjelica Jordan APRN HEMATOLOGY ORDER MAGAN Performing Organization Address City/[facility] Co de Phone Number [facility] [place] [address] * (ABNORMAL) Hemogram (04/05/2020 1:10 AM EST) WBC 21.4(H) 4.0 - 9.5 x10(3)/[facility] RBC 3.33(L) 4.00 - 5.21 x10(6)/[facility] Hemoglobin 9.9(L) 11.7 - 15.5 gm/dL [facility] Hematocrit 30.0(L) 35.7 - 45.8 % [facility] MCV 90.1 82.6 - 94.4 [facility] MCH 29.7 27.1 - 32.0 pg [facility] MCHC 33.0 31.7 - 35.0 gm/dL [facility] Platelets 444(H) 145 - 357 x10(3)/[facility] RDWSD 42.1 37.0 - 46.0 [facility] RDWCV 12.7 11.5 - 14.1 % [facility] MPV 10.0 7.6 - 12.9 [facility] nRBC % Auto 0.0 % [facility] nRBC Abs Auto 0.000 0.000 - 0.000 x10(3)/[facility] Blood specimen (specimen) 04/05/2020 1:10 AM EST 04/05/2020 1:25 AM EST Narrative Resulting Agency Comment Spec In Lab Anjelica Jordan APRN HEMATOLOGY ORDER MAGAN [facility] [place] [address] * Phosphorus (04/05/2020 1:10 AM EST) Phosphorus 2.9 2.5 - 4.5 mg/dL [facility] Blood specimen (specimen) 04/05/2020 1:10 AM EST 04/05/2020 1:25 AM EST Narrative Resulting Agency Comment Spec In Lab Anjeliac Jordan MEAL COOKER CHEMISTRY ORDERA BLES Performing Organization Address [facility]/ZIP Co de Phone Number [facility] [place] [address] * Magnesium (04/05/2020 1:10 AM EST) Magnesium 0.82 0.69 - 1.07 mmol/L [facility] Blood specimen (specimen) 04/05/2020 1:10 AM EST 04/05/2020 1:25 AM EST Narrative Resulting Agency Comment Spec In Lab Anjelica Jordan MEAL COOKER CHEMISTRY ORDERA BLES Performing Organization Address [facility] Co de Phone Number [facility] [place] [address] * (ABNORMAL) Basic Metabolic Panel (non-fasting) (04/05/2020 1:10 AM EST) Glucose Lvl 175 65 - 199 mg/dL [facility] Comment:Diabetes: >=200 mg/d L plus symptoms BUN 11 8 - 18 mg/dL [facility] Creatinine 0.36(L) 0.70 - 1.20 mg/dL [facility] Sodium 134(L) 135 - 145 mmol/L [facility] Potassium 3.4(L) 3.5 - 5.0 mmol/L [facility] Comment: Please note: ??Patients with WBC >100,000 may have falsely elevated Potassium levels. ??For accurate Potassium quantification in these patients send serum separator tube (gold top) for subsequent determinations. ??Contact the Clinical Chemistry Laboratory if there are any questions. Chloride 101 98 - 107 mmol/L [facility] CO2 26 22 - 31 mmol/L [facility] Anion Gap 7 5 - 15 mmol/L [facility] Calcium 8.0(L) 8.5 - 10.5 mg/dL [facility] Estimated GFR 107 >=60 mL/min/1. 73 m?? [facility] Comment: This patient? s estimated glomerular filtration rate (eGFR) is between 107 mL/min/1.73 m2 (patients with less muscle mass) and 124 mL/min/1.73 m2 (patients with more muscle mass) as determined by the CKD-EPI equation. Assessment of eGFR is not appropriate when creatinine concentrations are rapidly changing. For clinical decisions where creatinine clearance will affect therapy, a 24-hour urine creatinine clearance may be advised. Assignment of CKD stage 1 ? 5 for patients with an eGFR near the transition point between stages may be based on clinical assessment of muscle mass and symptoms in addition to eGFR. Blood specimen (specimen) 04/05/2020 1:10 AM EST 04/05/2020 1:25 AM EST Narrative Resulting Agency Comment Spec In Lab Anjelica Jordan APRN CHEMISTRY ORDERA BLES [facility] [place] [address] * POCT Glucose (04/05/2020 1:09 AM EST) POC Glucose 172 65 - 199 mg/dL [facility] Comment: Supplemental ranges: <140 mg/dL before meals <180 mg/dL all other times of the day Blood specimen (specimen) 04/05/2020 1:09 AM EST 04/05/2020 1:09 AM EST Davian Carolina MD POINT OF CARE TEST ORDERABLES [facility] [place] [address] * POCT Glucose (04/04/2020 10:11 PM EST) POC Glucose 197 65 - 199 mg/dL [facility] Comment: Supplemental ranges: <140 mg/dL before meals <180 mg/dL all other times of the day Blood specimen (specimen) 04/04/2020 10:11 PM EST 04/04/2020 10:11 PM EST Davian Carolina MD POINT OF CARE TEST ORDERABLES Performing Organization Address [facility] Co de Phone Number [facility] [place] [address] * POCT Glucose (04/04/2020 8:22 PM EST) POC Glucose 191 65 - 199 mg/dL [facility] Comment: Supplemental ranges: <140 mg/dL before meals <180 mg/dL all other times of the day Blood specimen (specimen) 04/04/2020 8:22 PM EST 04/04/2020 8:22 PM EST Davian Carolina MD POINT OF CARE TEST ORDERABLES Performing Organization Address [facility] Co de Phone Number [facility] [place] [address] * POCT Glucose (04/04/2020 4:36 PM EST) POC Glucose 190 65 - 199 mg/dL [facility] Comment: Supplemental ranges: <140 mg/dL before meals <180 mg/dL all other times of the day Blood specimen (specimen) 04/04/2020 4:36 PM EST 04/04/2020 4:36 PM EST Davian Carolina MD POINT OF CARE TEST ORDERABLES Performing Organization Address [facility] Co de Phone Number [facility] [place] [address] * POCT Glucose (04/04/2020 11:52 AM EST) POC Glucose 178 65 - 199 mg/dL [facility] Comment: Supplemental ranges: <140 mg/dL before meals <180 mg/dL all other times of the day Blood specimen (specimen) 04/04/2020 11:52 AM EST 04/04/2020 11:52 AM EST Davian Carolina MD POINT OF CARE TEST ORDERABLES Performing Organization Address City/[facility] Co de Phone Number [facility] [place] [address] * (ABNORMAL) POCT Glucose (04/04/2020 7:38 AM EST) POC Glucose 220(H) 65 - 199 mg/dL [facility] Comment: Supplemental ranges: <140 mg/dL before meals <180 mg/dL all other times of the day Blood specimen (specimen) 04/04/2020 7:38 AM EST 04/04/2020 7:38 AM EST Davian Carolina MD POINT OF CARE TEST ORDERABLES Performing Organization Address [facility] de Phone Number [facility] [place] [address] * (ABNORMAL) POCT Glucose (04/04/2020 5:20 AM EST) POC Glucose 203(H) 65 - 199 mg/dL [facility] Comment: Supplemental ranges: <140 mg/dL before meals <180 mg/dL all other times of the day Blood specimen (specimen) 04/04/2020 5:20 AM EST 04/04/2020 5:20 AM EST Davian Carolina MD POINT OF CARE TEST ORDERABLES Performing Organization Address City/[facility] Co de Phone Number [facility] [place] [address] * POCT Glucose (04/04/2020 5:19 AM EST) POC Glucose 198 65 - 199 mg/dL [facility] Comment: Supplemental ranges: <140 mg/dL before meals <180 mg/dL all other times of the day Blood specimen (specimen) 04/04/2020 5:19 AM EST 04/04/2020 5:19 AM EST Davian Carolina MD POINT OF CARE TEST ORDERABLES Performing Organization Address City/[facility]/[place] [address] * (ABNORMAL) Differential, Automated (04/04/2020 3:26 AM EST) Neutrophils % 86.3 % [facility] Neutr Abs (ANC) 17.68(H) 1.70 - 6.10 x10(3)/[facility] Lymphocytes % 4.5 % [facility] Lymphocytes Abs 0.9 0.9 - 3.2 x10(3)/[facility] Monocytes % 6.0 % [facility] Monocyte Abs 1.2(H) 0.3 - 0.9 x10(3)/[facility] Eosinophils % 1.5 % [facility] Eosinophils Abs 0.3 0.0 - 0.4 x10(3)/[facility] Basophils % 0.3 % [facility] Basophils Abs 0.1 0.0 - 0.1 x10(3)/[facility] Immature Gran % 1.40 % [facility] Comment: Immature granulocytes(IG's)percentage and absolute count will include metamyelocytes, myelocytes, and promyelocytes. Blood smears from CBCs yielding IG's will be scanned manually for concordance. If this scan disagrees with the automated IG or if promyelocytes are noted, a manual differential will be performed. Nory Gran Abs 0.29(H) 0.00 - 0.04 x10(3)/ L [facility] Blood specimen (specimen) 04/04/2020 3:26 AM EST 04/04/2020 3:32 AM EST Narrative Resulting Agency Comment Spec In Lab Anjelica Jordan APRN HEMATOLOGY ORDER MAGAN Performing Organization Address City/[facility]/[place] [address] * (ABNORMAL) Hemogram (04/04/2020 3:26 AM EST) WBC 20.5(H) 4.0 - 9.5 x10(3)/[facility] RBC 3.01(L) 4.00 - 5.21 x10(6)/[facility] Hemoglobin 9.1(L) 11.7 - 15.5 gm/dL [facility] Hematocrit 27.1(L) 35.7 - 45.8 % [facility] MCV 90.0 82.6 - 94.4 fL [facility] MCH 30.2 27.1 - 32.0 pg [facility] MCHC 33.6 31.7 - 35.0 gm/dL [facility] Platelets 367(H) 145 - 357 x10(3)/[facility] RDWSD 42.0 37.0 - 46.0 [facility] RDWCV 12.6 11.5 - 14.1 % [facility] MPV 9.6 7.6 - 12.9 [facility] nRBC % Auto 0.0 % [facility] nRBC Abs Auto 0.000 0.000 - 0.000 x10(3)/[facility] Blood specimen (specimen) 04/04/2020 3:26 AM EST 04/04/2020 3:32 AM EST Narrative Resulting Agency Comment Spec In Lab Anjelica Jordan APRN HEMATOLOGY ORDER MAGAN [facility] [place] [address] * (ABNORMAL) Phosphorus (04/04/2020 3:26 AM EST) Phosphorus 2.4(L) 2.5 - 4.5 mg/dL [facility] Blood specimen (specimen) 04/04/2020 3:26 AM EST 04/04/2020 3:32 AM EST Narrative Resulting Agency Comment Spec In Lab Anjelica Lissa Nikki MEAL COOKER CHEMISTRY ORDERA BLES Performing Organization Address City/[facility] Co de Phone Number [facility] [place] [address] * Magnesium (04/04/2020 3:26 AM EST) Magnesium 0.84 0.69 - 1.07 mmol/L [facility] Blood specimen (specimen) 04/04/2020 3:26 AM EST 04/04/2020 3:32 AM EST Narrative Resulting Agency Comment Spec In Lab Anjelica Jordan MEAL COOKER CHEMISTRY ORDERA BLES Performing Organization Address [facility] de Phone Number [facility] [place] [address] * (ABNORMAL) Basic Metabolic Panel (non-fasting) (04/04/2020 3:26 AM EST) Glucose Lvl 181 65 - 199 mg/dL [facility] Comment:Diabetes: >=200 mg/d L plus symptoms BUN 13 8 - 18 mg/dL [facility] Creatinine 0.34(L) 0.70 - 1.20 mg/dL [facility] Sodium 134(L) 135 - 145 mmol/L [facility] Potassium 3.3(L) 3.5 - 5.0 mmol/L [facility] Comment: Please note: ??Patients with WBC >100,000 may have falsely elevated Potassium levels. ??For accurate Potassium quantification in these patients send serum separator tube (gold top) for subsequent determinations. ??Contact the Clinical Chemistry Laboratory if there are any questions. Chloride 101 98 - 107 mmol/L [facility] CO2 28 22 - 31 mmol/L [facility] Anion Gap 5 5 - 15 mmol/L [facility] Calcium 7.8(L) 8.5 - 10.5 mg/dL [facility] Estimated GFR 109 >=60 mL/min/1. 73 m?? [facility] Comment: This patient? s estimated glomerular filtration rate (eGFR) is between 109 mL/min/1.73 m2 (patients with less muscle mass) and 126 mL/min/1.73 m2 (patients with more muscle mass) as determined by the CKD-EPI equation. Assessment of eGFR is not appropriate when creatinine concentrations are rapidly changing. For clinical decisions where creatinine clearance will affect therapy, a 24-hour urine creatinine clearance may be advised. Assignment of CKD stage 1 ? 5 for patients with an eGFR near the transition point between stages may be based on clinical assessment of muscle mass and symptoms in addition to eGFR. Blood specimen (specimen) 04/04/2020 3:26 AM EST 04/04/2020 3:32 AM EST Narrative Resulting Agency Comment Spec In Lab Anjelica Jordan APRN CHEMISTRY ORDERA BLES Performing Organization Address [facility]/ZIP Co de Phone Number [facility] [place] [address] * POCT Glucose (04/04/2020 3:18 AM EST) POC Glucose 172 65 - 199 mg/dL [facility] Comment: Supplemental ranges: <140 mg/dL before meals <180 mg/dL all other times of the day Blood specimen (specimen) 04/04/2020 3:18 AM EST 04/04/2020 3:18 AM EST Davian Carolina MD POINT OF CARE TEST ORDERABLES Performing Organization Address City/[facility]/ZIP Co de Phone Number [facility] [place] [address] * POCT Glucose (04/04/2020 12:50 AM EST) POC Glucose 145 65 - 199 mg/dL [facility] Comment: Supplemental ranges: <140 mg/dL before meals <180 mg/dL all other times of the day Blood specimen (specimen) 04/04/2020 12:50 AM EST 04/04/2020 12:50 AM EST Davian Carolina MD POINT OF CARE TEST ORDERABLES Performing Organization Address [facility] de Phone Number [facility] [place] [address] * POCT Glucose (04/03/2020 9:25 PM EST) POC Glucose 173 65 - 199 mg/dL [facility] Comment: Supplemental ranges: <140 mg/dL before meals <180 mg/dL all other times of the day Blood specimen (specimen) 04/03/2020 9:25 PM EST 04/03/2020 9:25 PM EST Davian Carolina MD POINT OF CARE TEST ORDERABLES Performing Organization Address [facility] Phone Number [facility] [place] [address] * POCT Glucose (04/03/2020 4:19 PM EST) POC Glucose 197 65 - 199 mg/dL [facility] Comment: Supplemental ranges: <140 mg/dL before meals <180 mg/dL all other times of the day Blood specimen (specimen) 04/03/2020 4:19 PM EST 04/03/2020 4:19 PM EST Davian Carolina MD POINT OF CARE TEST ORDERABLES Performing Organization Address [facility] de Phone Number [facility] [place] [address] * (ABNORMAL) Urinalysis Microscopic Exam (04/03/2020 2:22 PM EST) RBC UA 12(H) 0 - 4 /HPF [facility] WBC UA 6(H) 0 - 5 /HPF [facility] Squam Epith UA 5(H) <=4 /HPF [facility] Trans Epith UA <1 <=1 /HPF [facility] Hyaline Cast UA <1 0 - 2 /LPF [facility] Urine specimen (specimen) 04/03/2020 2:22 PM EST 04/03/2020 2:54 PM EST Narrative Resulting Agency Comment Spec In Lab Anjelica Jordan MEAL COOKER URINE ORDERABLES Performing Organization Address [facility] Co de Phone Number [facility] [place] [address] * (ABNORMAL) Urinalysis with reflex Culture (04/03/2020 2:22 PM EST) Glucose UA Negative Negative mg/dL [facility] Protein UA 30(A) Negative mg/dL [facility] Bilirubin UA Negative Negative mg/dL [facility] Comment: Clinical correlation required for positive Urine Bilirubin results as false positive may occur with some drugs and drug related products. If a false positive is suspected a serum total bilirubin should be considered if clinically indicated. Urobilinogen UA Normal Normal mg/dL [facility] pH UA 6.0 5.0 - 8.0 [facility] Blood UA Negative Negative mg/dL [facility] Ketones UA 40(A) Negative mg/dL [facility] Nitrite UA Negative Negative [facility] Leukocytes UA Negative Negative [facility] Appearance UA Clear Clear [facility] Spec [place] UA 1.025 1.006 - 1.030 [facility] Color UA Yellow Yellow [facility] Culture Reflexed No [facility] Urine specimen (specimen) 04/03/2020 2:22 PM EST 04/03/2020 2:54 PM EST Narrative Resulting Agency Comment Spec In Lab Anjelica Jordan MEAL COOKER URINE ORDERABLES Performing Organization Address City/[facility]/ZIP Co de Phone Number [facility] [place] [address] * POCT Glucose (04/03/2020 12:47 PM EST) POC Glucose 151 65 - 199 mg/dL [facility] Comment: Supplemental ranges: <140 mg/dL before meals <180 mg/dL all other times of the day Blood specimen (specimen) 04/03/2020 12:47 PM EST 04/03/2020 12:47 PM EST Davian Carolina MD POINT OF CARE TEST ORDERABLES Performing Organization Address City/State/[facility] Co de Phone Number [facility] [place] [address] * XR Abdomen 1 view (Generic) (04/03/2020 11:26 AM EST) Anatomical Region Laterality Modality Abdomen N/A Digital Radiogra phy Impressions 04/03/2020 11:49 AM EST 1. ??Distal tip of enteric tube projects over the gastric fundus as described. 2. ??Persistent subcutaneous emphysema in the imaged bilateral abdominal and chest wall, as seen on the 04/01/2020 CTs. 3. ??Increased opacification in the left retrocardiac region, likely representing a combination of pleural effusion and atelectasis, although the possibility of pneumonia/aspiration is not excluded in the appropriate clinical setting. Thank you for letting us participate in the care of this patient. For questions regarding this report, please contact the number below. ? Electronically signed by: Deepika Handy MD, [facility] ([phone]), at 04/03/2020 11:49 AM Narrative 04/03/2020 11:49 AM EST EXAMINATION: XR ABDOMEN 1 VIEW (GENERIC) CLINICAL HISTORY: NGT repositioned as previously coiled and deep in stomach; x-ray to confirm positioning. TECHNIQUE: Portable AP supine abdominal radiograph 04/03/2020 at 1116 hours COMPARISON: Portable AP 45 degrees upright abdominal radiograph 04/02/2020. FINDINGS: Portable AP supine abdominal radiograph centered at the level the diaphragm demonstrates interval repositioning or replacement of the enteric tube which is now looped overlying the expected region of the stomach with the tip projecting over the gastric fundus and directed cephalad. Surgical clips again seen overlying the right upper abdomen. No dilated air-filled loops of bowel in the imaged upper abdomen. Bilateral subcutaneous emphysema in the abdominal wall and imaged lower chest wall noted, better demonstrated on the 04/01/2020 CT. Distal tip of a central venous catheter overlies the lower SVC as before. Increased left retrocardiac opacity with blunting of the left lateral costophrenic sulcus. Procedure Note Deepika Handy MD - 04/03/2020 EXAMINATION: XR ABDOMEN 1 VIEW (GENERIC) CLINICAL HISTORY: NGT repositioned as previously coiled and deep instomach; x-ray to confirm positioning. TECHNIQUE: Portable AP supine abdominal radiograph 04/03/2020 at 1116 hours COMPARISON: Portable AP 45 degrees upright abdominal radiograph 04/02/2020. FINDINGS: Portable AP supine abdominal radiograph centered at the level thediaphragm demonstrates interval repositioning or replacement of the enteric tubewhich is now looped overlying the expected region of the stomach with the tipprojecting over the gastric fundus and directed cephalad. Surgical clips again seen overlying the right upper abdomen. No dilated air-filled loops of bowel in the imaged upper abdomen. Bilateral subcutaneous emphysema in the abdominal wall and imaged lowerchest wall noted, better demonstrated on the 04/01/2020 CT. Distal tip of a central venous catheter overlies the lower SVC asbefore. Increased left retrocardiac opacity with blunting of the left lateral costophrenic sulcus. IMPRESSION 1. Distal tip of enteric tube projects over the gastric fundus asdescribed. 2. Persistent subcutaneous emphysema in the imaged bilateral abdominaland chest wall, as seen on the 04/01/2020 CTs. 3. Increased opacification in the left retrocardiac region, likelyrepresenting a combination of pleural effusion and atelectasis, although thepossibility of pneumonia/aspiration is not excluded in the appropriate clinicalsetting. Thank you for letting us participate in the care of this patient. Forquestions regarding this report, please contact the number below. Electronically signed by: Deepika Handy MD, [facility]([phone]), at 04/03/2020 11:49 AM Anjelica Jordan JESUS ALBERTO IMG DX ORDERABLE S * POCT Glucose (04/03/2020 5:18 AM EST) Pathologist [facility] POC Glucose 192 65 - 199 mg/dL [facility] Comment: Supplemental ranges: <140 mg/dL before meals <180 mg/dL all other times of the day Blood specimen (specimen) 04/03/2020 5:18 AM EST 04/03/2020 5:18 AM EST Davian Carolina MD POINT OF CARE TEST ORDERABLES Performing Organization Address City/State/[facility] Co de Phone Number [facility] [place] [address] * (ABNORMAL) Differential, Automated (04/03/2020 2:50 AM EST) Pathologist [facility] Neutrophils % 91.6 % [facility] Neutr Abs (ANC) 16.61(H) 1.70 - 6.10 x10(3)/mc L [facility] Lymphocytes % 2.9 % [facility] Lymphocytes Abs 0.5(L) 0.9 - 3.2 x10(3)/ L [facility] Monocytes % 4.7 % [facility] Monocyte Abs 0.8 0.3 - 0.9 x10(3)/mc L [facility] Eosinophils % 0.1 % [facility] Eosinophils Abs 0.0 0.0 - 0.4 x10(3)/[facility] LABORATORY Basophils % 0.2 % [facility] Basophils Abs 0.0 0.0 - 0.1 x10(3)/mc L [facility] Immature Gran % 0.50 % [facility] Comment: Immature granulocytes(IG's)percentage and absolute count will include metamyelocytes, myelocytes, and promyelocytes. Blood smears from CBCs yielding IG's will be scanned manually for concordance. If this scan disagrees with the automated IG or if promyelocytes are noted, a manual differential will be performed. Nory Gran Abs 0.09(H) 0.00 - 0.04 x10(3)/mc L [facility] Blood specimen (specimen) 04/03/2020 2:50 AM EST 04/03/2020 3:05 AM EST Narrative Resulting Agency Comment Spec In Lab Anjelica Jordan APRN HEMATOLOGY ORDER MAGAN [facility] [place] [address] * (ABNORMAL) Hemogram (04/03/2020 2:50 AM EST) WBC 18.1(H) 4.0 - 9.5 x10(3)/[facility] LABORATORY RBC 3.40(L) 4.00 - 5.21 x10(6)/[facility]ATORY Hemoglobin 10.2(L) 11.7 - 15.5 gm/dL [facility] Hematocrit 30.9(L) 35.7 - 45.8 % [facility] MCV 90.9 82.6 - 94.4 fL [facility] MCH 30.0 27.1 - 32.0 pg [facility] MCHC 33.0 31.7 - 35.0 gm/dL [facility] Platelets 380(H) 145 - 357 x10(3)/[facility] LABORATORY RDWSD 40.6 37.0 - 46.0 fL [facility] RDWCV 12.3 11.5 - 14.1 % [facility] MPV 10.0 7.6 - 12.9 fL [facility] nRBC % Auto 0.0 % [facility] nRBC Abs Auto 0.000 0.000 - 0.000 x10(3)/mcL [facility] Blood specimen (specimen) 04/03/2020 2:50 AM EST 04/03/2020 3:05 AM EST Narrative Resulting Agency Comment Spec In Lab Anjelica Jordan MEAL COOKER HEMATOLOGY ORDER MAGAN Performing Organization Address [facility] Co de Phone Number [facility] [place] [address] * (ABNORMAL) Phosphorus (04/03/2020 2:50 AM EST) Phosphorus 2.2(L) 2.5 - 4.5 mg/dL [facility] Blood specimen (specimen) 04/03/2020 2:50 AM EST 04/03/2020 3:05 AM EST Narrative Resulting Agency Comment Spec In Lab Anjelica Jordan MEAL COOKER CHEMISTRY ORDERA BLES Performing Organization Address [facility] de Phone Number [facility] [place] [address] * Magnesium (04/03/2020 2:50 AM EST) Magnesium 0.76 0.69 - 1.07 mmol/L [facility] Blood specimen (specimen) 04/03/2020 2:50 AM EST 04/03/2020 3:05 AM EST Narrative Resulting Agency Comment Spec In Lab Anjelica Jordan MEAL COOKER CHEMISTRY ORDERA BLES Performing Organization Address [facility] de Phone Number [facility] [place] [address] * (ABNORMAL) Basic Metabolic Panel (non-fasting) (04/03/2020 2:50 AM EST) Glucose Lvl 162 65 - 199 mg/dL [facility] Comment:Diabetes: >=200 mg/d L plus symptoms BUN 11 8 - 18 mg/dL [facility] Creatinine 0.37(L) 0.70 - 1.20 mg/dL [facility] Sodium 129(L) 135 - 145 mmol/L [facility] Potassium 3.8 3.5 - 5.0 mmol/L [facility] Comment: Please note: ??Patients with WBC >100,000 may have falsely elevated Potassium levels. ??For accurate Potassium quantification in these patients send serum separator tube (gold top) for subsequent determinations. ??Contact the Clinical Chemistry Laboratory if there are any questions. Chloride 96(L) 98 - 107 mmol/L [facility] CO2 23 22 - 31 mmol/L [facility] Anion Gap 10 5 - 15 mmol/L [facility] Calcium 7.6(L) 8.5 - 10.5 mg/dL [facility] Estimated GFR 106 >=60 mL/min/1. 73 m?? [facility] Comment: This patient? s estimated glomerular filtration rate (eGFR) is between 106 mL/min/1.73 m2 (patients with less muscle mass) and 123 mL/min/1.73 m2 (patients with more muscle mass) as determined by the CKD-EPI equation. Assessment of eGFR is not appropriate when creatinine concentrations are rapidly changing. For clinical decisions where creatinine clearance will affect therapy, a 24-hour urine creatinine clearance may be advised. Assignment of CKD stage 1 ? 5 for patients with an eGFR near the transition point between stages may be based on clinical assessment of muscle mass and symptoms in addition to eGFR. Blood specimen (specimen) 04/03/2020 2:50 AM EST 04/03/2020 3:05 AM EST Narrative Resulting Agency Comment Spec In Lab Anjelica Jordan APRN CHEMISTRY ORDERA BLES [facility] [place] [address] * POCT Glucose (04/02/2020 10:57 PM EST) POC Glucose 164 65 - 199 mg/dL [facility] Comment: Supplemental ranges: <140 mg/dL before meals <180 mg/dL all other times of the day Blood specimen (specimen) 04/02/2020 10:57 PM EST 04/02/2020 10:57 PM EST Davian Carolina MD POINT OF CARE TEST ORDERABLES [facility] [address] [place] [address] * XR Chest One View (04/02/2020 7:21 PM EST) Anatomical Region Laterality Modality Chest N/A Digital Radiogra phy Impressions 04/02/2020 8:07 PM EST Airspace opacities in the left mid and lower lung zone, question consolidation, pneumonia or aspiration. Subcutaneous emphysema similar to prior exams. Thank you for letting us participate in the care of this patient. For questions regarding this report, please contact the number below. ? Narrative 04/02/2020 8:07 PM EST EXAMINATION: XR CHEST ONE VIEW CLINICAL HISTORY: NGT placement, capture diaphragm TECHNIQUE: 1 view of the chest COMPARISON: Abdomen supine 04/01/2020 CT abdomen and pelvis 04/01/2020 FINDINGS: AP portable chest 45 degrees upright demonstrates enteric tube looped in the gastric fundus with distal and pointing caudally. There is a catheter arriving from the left upper extremity with distal and projecting at the distal SVC. Right lung is clear. There is ill-defined opacity in the left midlung zone, abnormal ill-defined opacity projecting the left lower lung zone over the cardiac silhouette obscuring a portion of the left hemidiaphragm and descending aorta. Multiple surgical clips in the midabdomen eccentric to the right Bilateral subcutaneous emphysema along the flanks. No visceral pleural line identified Procedure Note Olayinka Mcduffie MD - 04/02/2020 EXAMINATION: XR CHEST ONE VIEW CLINICAL HISTORY: NGT placement, capture diaphragm TECHNIQUE: 1 view of the chest COMPARISON: Abdomen supine 04/01/2020 CT abdomen and pelvis 04/01/2020 FINDINGS: AP portable chest 45 degrees upright demonstrates enteric tube looped inthe gastric fundus with distal and pointing caudally. There is a catheter arriving from the left upper extremity with distaland projecting at the distal SVC. Right lung is clear. There is ill-defined opacity in the left midlungzone, abnormal ill-defined opacity projecting the left lower lung zone overthe cardiac silhouette obscuring a portion of the left hemidiaphragm anddescending aorta. Multiple surgical clips in the midabdomen eccentric to the right Bilateral subcutaneous emphysema along the flanks. No visceral pleural line identified IMPRESSION Airspace opacities in the left mid and lower lung zone, questionconsolidation, pneumonia or aspiration. Subcutaneous emphysema similar to prior exams. Thank you for letting us participate in the care of this patient. Forquestions regarding this report, please contact the number below. Electronically signed by: Olayinka Mcduffie MD, [facility]([phone]), at 04/02/2020 8:07 PM Davian Carolina MD IMG DX ORDERABLES * XR Abdomen 1 view (Generic) (04/02/2020 7:21 PM EST) Anatomical Region Laterality Modality Abdomen N/A Digital Radiogra phy Impressions 04/02/2020 8:17 PM EST Distal portion of an enteric tube coiled within the stomach. Thank you for letting us participate in the care of this patient. For questions regarding this report, please contact the number below. ? Electronically signed by: Jayro Maier MD, [facility] ([phone]), at 04/02/2020 8:17 PM Narrative 04/02/2020 8:17 PM EST EXAMINATION: XR ABDOMEN 1 VIEW (GENERIC) CLINICAL HISTORY: NGT placement TECHNIQUE: AP view of the abdomen COMPARISON: Abdominal radiograph 04/01/20 FINDINGS: Interval replacement or repositioning of the nasogastric tube. The tip and side-port project over the left upper quadrant, region of the stomach. Subcutaneous emphysema in the left chest wall. Surgical clips project over the spine and right upper quadrant. Procedure Note Jayro Maier MD - 04/02/2020 EXAMINATION: XR ABDOMEN 1 VIEW (GENERIC) CLINICAL HISTORY: NGT placement TECHNIQUE: AP view of the abdomen COMPARISON: Abdominal radiograph 04/01/20 FINDINGS: Interval replacement or repositioning of the nasogastric tube. The tipand side-port project over the left upper quadrant, region of the stomach. Subcutaneous emphysema in the left chest wall. Surgical clips project overthe spine and right upper quadrant. IMPRESSION Distal portion of an enteric tube coiled within the stomach. Thank you for letting us participate in the care of this patient. Forquestions regarding this report, please contact the number below. Davian Carolina MD IMG DX ORDERABLES * (ABNORMAL) Basic Metabolic Panel (non-fasting) (04/02/2020 6:15 PM EST) Glucose Lvl 92 65 - 199 mg/dL [facility] Comment:Diabetes: >=200 mg/d L plus symptoms BUN 8 8 - 18 mg/dL [facility] Creatinine 0.40(L) 0.70 - 1.20 mg/dL [facility] Sodium 132(L) 135 - 145 mmol/L [facility] Potassium 3.9 3.5 - 5.0 mmol/L [facility] Comment: Please note: ??Patients with WBC >100,000 may have falsely elevated Potassium levels. ??For accurate Potassium quantification in these patients send serum separator tube (gold top) for subsequent determinations. ??Contact the Clinical Chemistry Laboratory if there are any questions. Chloride 96(L) 98 - 107 mmol/L [facility] CO2 22 22 - 31 mmol/L [facility] Anion Gap 14 5 - 15 mmol/L [facility] Calcium 7.7(L) 8.5 - 10.5 mg/dL [facility] Estimated GFR 103 >=60 mL/min/1. 73 m?? [facility] Comment: This patient? s estimated glomerular filtration rate (eGFR) is between 103 mL/min/1.73 m2 (patients with less muscle mass) and 120 mL/min/1.73 m2 (patients with more muscle mass) as determined by the CKD-EPI equation. Assessment of eGFR is not appropriate when creatinine concentrations are rapidly changing. For clinical decisions where creatinine clearance will affect therapy, a 24-hour urine creatinine clearance may be advised. Assignment of CKD stage 1 ? 5 for patients with an eGFR near the transition point between stages may be based on clinical assessment of muscle mass and symptoms in addition to eGFR. Blood specimen (specimen) 04/02/2020 6:15 PM EST 04/02/2020 6:48 PM EST Narrative Resulting Agency Comment Spec In Lab Anjelica Jordan APRN CHEMISTRY ORDERA BLES [facility] [place] [address] * POCT Glucose (04/02/2020 5:17 PM EST) POC Glucose 85 65 - 199 mg/dL [facility] Comment: Supplemental ranges: <140 mg/dL before meals <180 mg/dL all other times of the day Blood specimen (specimen) 04/02/2020 5:17 PM EST 04/02/2020 5:17 PM EST Davian Carolina MD POINT OF CARE TEST ORDERABLES [facility] [place] [address] * UPPER GI ENDOSCOPY (04/02/2020 2:52 PM EST) Pathologist [facility] UPPER GI ENDOSCOPY [facility] Procedure Date: 04/02/2020 2:52 PM ? Patient Name: Linda Abel ? N: [id number] ? Date of : 1945 ? Age: 74 ? Order #: [id number] ? Instrument Name: [id number] ? Procedure: ? Upper GI endoscopy Indications: ? Abnormal CT of the GI tract Providers: ? Ralf Urrutia, Anjelica Schofield, ? Alyse Tsang, Chela Rivas Referring MD: ? Medicines: ? General Anesthesia Complications: ? No immediate complications. Procedure: ? Pre-Anesthesia Assessment: ? - Prior to the procedure, a History ? and Physical was performed, and ? patient medications and allergies ? were reviewed. The patient is ? competent. The risks and benefits of ? the procedure and the sedation ? options and risks were discussed with ? the patient. All questions were ? answered and informed consent was ? obtained. Patient identification and ? proposed procedure were verified by ? the physician in the pre-procedure ? area. Mental Status Examination: ? alert and oriented. Airway ? Examination: normal oropharyngeal ? airway and neck mobility. Respiratory ? Examination: clear to auscultation. ? CV Examination: normal. Prophylactic ? Antibiotics: The patient does not ? require prophylactic antibiotics. ? Prior Anticoagulants: The patient has ? taken no previous anticoagulant or ? antiplatelet agents. ASA Grade ? Assessment: III - A patient with ? severe systemic disease. After ? reviewing the risks and benefits, the ? patient was deemed in satisfactory ? condition to undergo the procedure. ? The anesthesia plan was to use ? monitored anesthesia care (MAC). ? Immediately prior to administration ? of medications, the patient was ? re-assessed for adequacy to receive ? sedatives. The heart rate, ? respiratory rate, oxygen saturations, ? blood pressure, adequacy of pulmonary ? ventilation, and response to care ? were monitored throughout the ? procedure. The physical status of the ? patient was re-assessed after the ? procedure. ? The procedure, indications, benefits, ? risks and alternatives were explained ? to the patient. Specifically ? discussed were potential ? complications including, but not ? limited to, bleeding, perforation, ? infection, missing a cancer, and ? adverse medication reactions. The ? Endoscope was introduced through the ? and advanced to the. The patient ? tolerated the procedure well. The ? patient tolerated the procedure well. ? Findings: ? NGT in the esophagus with very mild inflammation. ? The gastrojejunostomy was examined. The anastamosis ? was intact but diffusely ulcerated. Both small bowel ? limbs were explored. The endoscope was advanced to ? the hepaticojejunostomy which appeared normal. The ? alimentary limb was diffusely congested and tortuous, ? difficult to navigate without mucosal abnormality or ? stricture. ? The NGT was replaced ? Moderate Sedation: ? Not applicable - See Anesthesia documentation ? Not applicable - See Anesthesia documentation Impression: ?- Patent but ulcerated ? gastrojejunostomy ? - Tortuous and angulated alimentary ? limb without mucosal abnormality ? - Patent hepaticojejunostomy Recommendation: ?- Return patient to [facility] for ? ongoing care. ? - Observe clinical course and review ? findings with surgical service. ? Attending Participation: ? I was present and participated during the entire ? procedure, including non-gonsalez portions. ? Ralf Urrutia, 04/02/2020 4:15:43 PM Number of Addenda: 0 Note Initiated On: 04/02/2020 2:52 PM PROVATION 04/02/2020 2:52 PM EST Unknown GENERAL SURGICAL ORD ERABLES Performing Organization Address City/[facility] Co de Phone Number PROVATION * POCT Glucose (04/02/2020 12:12 PM EST) POC Glucose 106 65 - 199 mg/dL [facility] Comment: Supplemental ranges: <140 mg/dL before meals <180 mg/dL all other times of the day Blood specimen (specimen) 04/02/2020 12:12 PM EST 04/02/2020 12:12 PM EST Davian Carolina MD POINT OF CARE TEST ORDERABLES Performing Organization Address [facility] Co de Phone Number [facility] [place] [address] * POCT Glucose (04/02/2020 9:58 AM EST) Pathologist [facility] POC Glucose 104 65 - 199 mg/dL [facility] Comment: Supplemental ranges: <140 mg/dL before meals <180 mg/dL all other times of the day Blood specimen (specimen) 04/02/2020 9:58 AM EST 04/02/2020 9:58 AM EST Davian Carolina MD POINT OF CARE TEST ORDERABLES Performing Organization Address City/[facility]/ZIP Co de Phone Number [facility] [place] [address] * POCT Glucose (04/02/2020 8:04 AM EST) [facility] POC Glucose 106 65 - 199 mg/dL [facility] Comment: Supplemental ranges: <140 mg/dL before meals <180 mg/dL all other times of the day Blood specimen (specimen) 04/02/2020 8:04 AM EST 04/02/2020 8:04 AM EST Davian Carolina MD POINT OF CARE TEST ORDERABLES Performing Organization Address City/[facility] Co de Phone Number [facility] [place] [address] * (ABNORMAL) Differential, Automated (04/02/2020 1:40 AM EST) [facility] Neutrophils % 88.6 % [facility] Neutr Abs (ANC) 14.39(H) 1.70 - 6.10 x10(3)/mc L [facility] Lymphocytes % 6.2 % [facility] Lymphocytes Abs 1.0 0.9 - 3.2 x10(3)/mc L [facility] Monocytes % 4.2 % [facility] Monocyte Abs 0.7 0.3 - 0.9 x10(3)/mc L [facility] Eosinophils % 0.1 % [facility] Eosinophils Abs 0.0 0.0 - 0.4 x10(3)/mc L [facility] Basophils % 0.5 % [facility] Basophils Abs 0.1 0.0 - 0.1 x10(3)/[facility] LABORATORY Immature Gran % 0.40 % [facility] Comment: Immature granulocytes(IG's)percentage and absolute count will include metamyelocytes, myelocytes, and promyelocytes. Blood smears from CBCs yielding IG's will be scanned manually for concordance. If this scan disagrees with the automated IG or if promyelocytes are noted, a manual differential will be performed. Nory Gran Abs 0.07(H) 0.00 - 0.04 x10(3)/[facility] Blood specimen (specimen) 04/02/2020 1:40 AM EST 04/02/2020 1:45 AM EST Narrative Resulting Agency Comment Spec In Lab Anjelica Jordan APRN HEMATOLOGY ORDER MAGAN Performing Organization Address City/State/[facility] Co de Phone Number [facility] [place] [address] * (ABNORMAL) Hemogram (04/02/2020 1:40 AM EST) WBC 16.2(H) 4.0 - 9.5 x10(3)/[facility]ATORY RBC 3.53(L) 4.00 - 5.21 x10(6)/[facility] Hemoglobin 11.0(L) 11.7 - 15.5 gm/dL [facility] Hematocrit 31.1(L) 35.7 - 45.8 % [facility] MCV 88.1 82.6 - 94.4 fL [facility] MCH 31.2 27.1 - 32.0 pg [facility] MCHC 35.4(H) 31.7 - 35.0 gm/dL [facility] Platelets 351 145 - 357 x10(3)/[facility]ORY RDWSD 40.2 37.0 - 46.0 fL [facility] RDWCV 12.4 11.5 - 14.1 % [facility] MPV 10.2 7.6 - 12.9 fL [facility] nRBC % Auto 0.0 % [facility] nRBC Abs Auto 0.000 0.000 - 0.000 x10(3)/mcL [facility] Blood specimen (specimen) 04/02/2020 1:40 AM EST 04/02/2020 1:45 AM EST Narrative Resulting Agency Comment Spec In Lab Anjelica Jordan APRN HEMATOLOGY ORDER MAGAN Performing Organization Address [facility] Co de Phone Number [facility] [place] [address] * Phosphorus (04/02/2020 1:40 AM EST) Phosphorus 3.5 2.5 - 4.5 mg/dL [facility] Blood specimen (specimen) 04/02/2020 1:40 AM EST 04/02/2020 1:45 AM EST Narrative Resulting Agency Comment Spec In Lab Anjelica Jordan APRN CHEMISTRY ORDERA BLES Performing Organization Address [facility] Co de Phone Number [facility] [place] [address] * Magnesium (04/02/2020 1:40 AM EST) Magnesium 0.69 0.69 - 1.07 mmol/L [facility] Blood specimen (specimen) 04/02/2020 1:40 AM EST 04/02/2020 1:45 AM EST Narrative Resulting Agency Comment Spec In Lab Anjelica Jordan APRN CHEMISTRY ORDERA BLES Performing Organization Address [facility] Co de Phone Number [facility] [place] [address] * (ABNORMAL) Basic Metabolic Panel (non-fasting) (04/02/2020 1:40 AM EST) Glucose Lvl 115 65 - 199 mg/dL [facility] Comment:Diabetes: >=200 mg/d L plus symptoms BUN 11 8 - 18 mg/dL [facility] Creatinine 0.57(L) 0.70 - 1.20 mg/dL [facility] Sodium 131(L) 135 - 145 mmol/L [facility] Potassium 4.3 3.5 - 5.0 mmol/L [facility] Comment: Please note: ??Patients with WBC >100,000 may have falsely elevated Potassium levels. ??For accurate Potassium quantification in these patients send serum separator tube (gold top) for subsequent determinations. ??Contact the Clinical Chemistry Laboratory if there are any questions. Chloride 94(L) 98 - 107 mmol/L [facility] CO2 24 22 - 31 mmol/L [facility] Anion Gap 13 5 - 15 mmol/L [facility] Calcium 8.2(L) 8.5 - 10.5 mg/dL [facility] Estimated GFR 92 >=60 mL/min/1. 73 m?? [facility] Comment: This patient? s estimated glomerular filtration rate (eGFR) is between 92 mL/min/1.73 m2 (patients with less muscle mass) and 107 mL/min/1.73 m2 (patients with more muscle mass) as determined by the CKD-EPI equation. Assessment of eGFR is not appropriate when creatinine concentrations are rapidly changing. For clinical decisions where creatinine clearance will affect therapy, a 24-hour urine creatinine clearance may be advised. Assignment of CKD stage 1 ? 5 for patients with an eGFR near the transition point between stages may be based on clinical assessment of muscle mass and symptoms in addition to eGFR. Blood specimen (specimen) 04/02/2020 1:40 AM EST 04/02/2020 1:45 AM EST Narrative Resulting Agency Comment Spec In Lab Anjelica Jordan APRN CHEMISTRY ORDERA BLES [facility] [place] [address] * POCT Glucose (04/01/2020 7:48 PM EST) POC Glucose 109 65 - 199 mg/dL [facility] Comment: Supplemental ranges: <140 mg/dL before meals <180 mg/dL all other times of the day Blood specimen (specimen) 04/01/2020 7:48 PM EST 04/01/2020 7:48 PM EST Davian Carolina MD POINT OF CARE TEST ORDERABLES [facility] [place] [address] * XR Abdomen 1 view (Generic) (04/01/2020 5:52 PM EST) Anatomical Region Laterality Modality Abdomen N/A Digital Radiogra phy Impressions 04/01/2020 5:59 PM EST Enteric tube with distal side-port overlying the region of the stomach. Thank you for letting us participate in the care of this patient. For questions regarding this report, please contact the number below. ? Narrative 04/01/2020 5:59 PM EST EXAMINATION: XR ABDOMEN 1 VIEW (GENERIC) CLINICAL HISTORY: Confirm NGT placement TECHNIQUE: Portable abdominal radiograph COMPARISON: CT abdomen dated 04/01/2020 FINDINGS: Enteric tube with distal side-port projecting over the region of the stomach. There is partially visualized left-sided PICC line with tip terminating at the cavoatrial junction. Nonobstructive bowel gas pattern. Subcutaneous emphysema tracking along the bilateral flanks. Surgical clips noted right upper quadrant. IV contrast material opacifying the bilateral collecting systems. The visualized portions of the lungs are clear. Procedure Note Caleb Kapoor DO - 04/01/2020 EXAMINATION: XR ABDOMEN 1 VIEW (GENERIC) CLINICAL HISTORY: Confirm NGT placement TECHNIQUE: Portable abdominal radiograph COMPARISON: CT abdomen dated 04/01/2020 FINDINGS: Enteric tube with distal side-port projecting over the region of thestomach. There is partially visualized left-sided PICC line with tip terminating atthe cavoatrial junction. Nonobstructive bowel gas pattern. Subcutaneousemphysema tracking along the bilateral flanks. Surgical clips noted right upperquadrant. IV contrast material opacifying the bilateral collecting systems. Thevisualized portions of the lungs are clear. IMPRESSION Enteric tube with distal side-port overlying the region of the stomach. Thank you for letting us participate in the care of this patient. Forquestions regarding this report, please contact the number below. Electronically signed by: CALEB KAPOOR DO, [facility]([phone]), at 04/01/2020 5:59 PM Davian Carolina MD IMG DX ORDERABLES * (ABNORMAL) BMP w/fasting Glucose (04/01/2020 3:53 PM EST) Glucose Fasting 112(H) 65 - 99 mg/dL [facility] Comment: ?Fasting* Glucose Interpretive Criteria Normal ?65-99 mg/dL Impaired Fasting glucose ?100-125 mg/dL Consistent with Diabetes Mellitus ? >or= 126 mg/dL *Fasting is defined as no caloric intake for at least 8 hours In the absence of unequivocal hyperglycemia a plasma glucose value of >or= 126 mg/dL should be repeated on a subsequent day. Diagnosis and Classification of Diabetes Mellitus, Position Statement from the [place] [employer]. ??Diabetes Care, Volume 33, Supplement 1, Apr 2009 BUN 9 8 - 18 mg/dL [facility] Creatinine 0.51(L) 0.70 - 1.20 mg/dL [facility] Sodium 128(L) 135 - 145 mmol/L [facility] Potassium 3.8 3.5 - 5.0 mmol/L [facility] Comment: Please note: ??Patients with WBC >100,000 may have falsely elevated Potassium levels. ??For accurate Potassium quantification in these patients send serum separator tube (gold top) for subsequent determinations. ??Contact the Clinical Chemistry Laboratory if there are any questions. Chloride 89(L) 98 - 107 mmol/L [facility] CO2 27 22 - 31 mmol/L [facility] Anion Gap 12 5 - 15 mmol/L [facility] Calcium 8.4(L) 8.5 - 10.5 mg/dL [facility] Estimated GFR 95 >=60 mL/min/1. 73 m?? [facility] Comment: This patient? s estimated glomerular filtration rate (eGFR) is between 95 mL/min/1.73 m2 (patients with less muscle mass) and 111 mL/min/1.73 m2 (patients with more muscle mass) as determined by the CKD-EPI equation. Assessment of eGFR is not appropriate when creatinine concentrations are rapidly changing. For clinical decisions where creatinine clearance will affect therapy, a 24-hour urine creatinine clearance may be advised. Assignment of CKD stage 1 ? 5 for patients with an eGFR near the transition point between stages may be based on clinical assessment of muscle mass and symptoms in addition to eGFR. Blood specimen (specimen) 04/01/2020 3:53 PM EST 04/01/2020 4:08 PM EST Narrative Resulting Agency Comment Spec In Lab Davian Carolina MD CHEMISTRY ORDERABL ES [facility] [place] [address] * POCT Glucose (04/01/2020 3:31 PM EST) POC Glucose 111 65 - 199 mg/dL [facility] Comment: Supplemental ranges: <140 mg/dL before meals <180 mg/dL all other times of the day Blood specimen (specimen) 04/01/2020 3:31 PM EST 04/01/2020 3:31 PM EST Davian Carolina MD POINT OF CARE TEST ORDERABLES Performing Organization Address City/State/[facility] Co de Phone Number [facility] [place] [address] * CT Abdomen & Pelvis w Contrast (04/01/2020 3:03 PM EST) Anatomical Region Laterality Modality Abdomen, Pelvis Computed Tomogra phy Impressions 04/01/2020 4:09 PM EST 1. ??Distended stomach with widely patent gastrojejunostomy. Distal to the gastrojejunostomy the jejunum is dilated to a point where it comes to a beak appearance in the midline anterior abdomen. Distal to this the small bowel is nonopacified and distended. Cannot exclude a possible focal stricture with a partial small bowel obstruction. 2. ??As noted previously post Whipple procedure. Remaining pancreatic body and tail are unremarkable. 3. ??Incidental finding of dilated, fluid-filled appendix. Clinical correlation to exclude acute appendicitis. No periappendiceal inflammatory changes Thank you for letting us participate in the care of this patient. For questions regarding this report, please contact the number below. ? Electronically signed by: Raimundo Mccurdy MD, [facility] ([phone]), at 04/01/2020 4:09 PM Narrative 04/01/2020 4:09 PM EST EXAMINATION: CT ABDOMEN AND PELVIS W CONTRAST CLINICAL HISTORY: Gastroparesis POD9 s/p robotic whipple with BII reconstruction c/b gastroparesis. Now with ongoing abd pain, nausea, belching, and decreased bowel function.; PO and IV contrast.; ? intraabdominal abscess, ? reason to explain prolonged ileus TECHNIQUE: Helical CT of the abdomen and pelvis was performed following the intravenous administration of contrast. Administered 66.0 ml of OMNIPAQUE 350.00 mg/ml. Oral contrast was administered. COMPARISON: Postoperative study from 03/26/2020 FINDINGS: Lower chest: Small LEFT pleural effusion with LEFT basilar focal atelectasis, decreased. Liver: Normal size and attenuation without lesions. Bile ducts: Pneumobilia secondary to the Whipple procedure. Gallbladder: Surgically absent Pancreas: As noted previously, post Whipple procedure. The remnant pancreatic body and tail are unremarkable. No pancreatic ductal dilatation. Spleen: Normal. Adrenals: Normal. Kidneys: Normal. Urinary Bladder: Air noted within the bladder, likely from recent catheterization Vasculature: No aneurysm. Lymph Nodes: No enlarged lymph nodes. Bowel: The stomach is distended with ingested contents and enteric contrast. The gastrojejunostomy is widely patent. Distal to the gastrojejunostomy the jejunum is distended to a point where it comes to a beak appearance in the midline anterior abdomen (series 3, image 41). Distal to this the small bowel is nonopacified and nondistended.. Of note, the appendix is dilated and fluid-filled measuring up to 12 mm in diameter. No appendiceal wall thickening. Peritoneum and mesentery: Trace free fluid in the pelvis, likely postoperative. Abdominal wall: Diffuse subcutaneous air, decreased, likely postoperative. Reproductive organs: Normal. Osseous structures: No suspicious lesions. Procedure Note Raimundo Mccurdy MD - 04/01/2020 EXAMINATION: CT ABDOMEN AND PELVIS W CONTRAST CLINICAL HISTORY: Gastroparesis POD9 s/p robotic whipple with BII reconstruction c/b gastroparesis. Nowwith ongoing abd pain, nausea, belching, and decreased bowel function.; PO andIV contrast.; ? intraabdominal abscess, ? reason to explain prolonged ileus TECHNIQUE: Helical CT of the abdomen and pelvis was performed followingthe intravenous administration of contrast. Administered 66.0 ml of TVEBIMHFK991.00 mg/ml. Oral contrast was administered. COMPARISON: Postoperative study from 03/26/2020 FINDINGS: Lower chest: Small LEFT pleural effusion with LEFT basilar focalatelectasis, decreased. Liver: Normal size and attenuation without lesions. Bile ducts: Pneumobilia secondary to the Whipple procedure. Gallbladder: Surgically absent Pancreas: As noted previously, post Whipple procedure. The remnantpancreatic body and tail are unremarkable. No pancreatic ductal dilatation. Spleen: Normal. Adrenals: Normal. Kidneys: Normal. Urinary Bladder: Air noted within the bladder, likely from recent catheterization Vasculature: No aneurysm. Lymph Nodes: No enlarged lymph nodes. Bowel: The stomach is distended with ingested contents and entericcontrast. The gastrojejunostomy is widely patent. Distal to the gastrojejunostomy thejejunum is distended to a point where it comes to a beak appearance in themidline anterior abdomen (series 3, image 41). Distal to this the small bowel is nonopacified and nondistended.. Of note, the appendix is dilated and fluid-filled measuring up to 12 mm in diameter. No appendiceal wallthickening. Peritoneum and mesentery: Trace free fluid in the pelvis, likelypostoperative. Abdominal wall: Diffuse subcutaneous air, decreased, likelypostoperative. Reproductive organs: Normal. Osseous structures: No suspicious lesions. IMPRESSION 1. Distended stomach with widely patent gastrojejunostomy. Distal tothe gastrojejunostomy the jejunum is dilated to a point where it comes to abeak appearance in the midline anterior abdomen. Distal to this the small bowelis nonopacified and distended. Cannot exclude a possible focal stricture witha partial small bowel obstruction. 2. As noted previously post Whipple procedure. Remaining pancreatic bodyand tail are unremarkable. 3. Incidental finding of dilated, fluid-filled appendix. Clinicalcorrelation to exclude acute appendicitis. No periappendiceal inflammatory changes Thank you for letting us participate in the care of this patient. Forquestions regarding this report, please contact the number below. Electronically signed by: Raimundo Mccurdy MD, [facility]([phone]), at 04/01/2020 4:09 PM Anjelica Jordan APRN IMG CT ORDERABLE S * POCT Glucose (04/01/2020 11:20 AM EST) POC Glucose 138 65 - 199 mg/dL [facility] Comment: Supplemental ranges: <140 mg/dL before meals <180 mg/dL all other times of the day Blood specimen (specimen) 04/01/2020 11:20 AM EST 04/01/2020 11:20 AM EST Davian Carolina MD POINT OF CARE TEST ORDERABLES Performing Organization Address [facility] Co de Phone Number [facility] [place] [address] * POCT Glucose (04/01/2020 7:30 AM EST) POC Glucose 170 65 - 199 mg/dL [facility] Comment: Supplemental ranges: <140 mg/dL before meals <180 mg/dL all other times of the day Blood specimen (specimen) 04/01/2020 7:30 AM EST 04/01/2020 7:30 AM EST Davian Carolina MD POINT OF CARE TEST ORDERABLES Performing Organization Address [facility] Co de Phone Number [facility] [place] [address] * POCT Glucose (04/01/2020 4:43 AM EST) POC Glucose 152 65 - 199 mg/dL [facility] Comment: Supplemental ranges: <140 mg/dL before meals <180 mg/dL all other times of the day Blood specimen (specimen) 04/01/2020 4:43 AM EST 04/01/2020 4:43 AM EST Davian Carolina MD POINT OF CARE TEST ORDERABLES Performing Organization Address City/[facility] de Phone Number [facility] [place] [address] * (ABNORMAL) Differential, Automated (04/01/2020 4:20 AM EST) Neutrophils % 85.6 % [facility] Neutr Abs (ANC) 8.42(H) 1.70 - 6.10 x10(3)/mc L [facility] Lymphocytes % 7.1 % [facility] Lymphocytes Abs 0.7(L) 0.9 - 3.2 x10(3)/[facility] Monocytes % 5.2 % [facility] Monocyte Abs 0.5 0.3 - 0.9 x10(3)/[facility] Eosinophils % 1.2 % [facility] Eosinophils Abs 0.1 0.0 - 0.4 x10(3)/[facility] Basophils % 0.4 % [facility] Basophils Abs 0.0 0.0 - 0.1 x10(3)/[facility] Immature Gran % 0.50 % [facility] Comment: Immature granulocytes(IG's)percentage and absolute count will include metamyelocytes, myelocytes, and promyelocytes. Blood smears from CBCs yielding IG's will be scanned manually for concordance. If this scan disagrees with the automated IG or if promyelocytes are noted, a manual differential will be performed. Nory Gran Abs 0.05(H) 0.00 - 0.04 x10(3)/[facility] Blood specimen (specimen) 04/01/2020 4:20 AM EST 04/01/2020 4:30 AM EST Narrative Resulting Agency Comment Spec In Lab Edwardo Mccormack MD HEMATOLOGY ORDERABLE S [facility] [place] [address] * (ABNORMAL) Hemogram (04/01/2020 4:20 AM EST) WBC 9.8(H) 4.0 - 9.5 x10(3)/[facility] RBC 3.72(L) 4.00 - 5.21 x10(6)/[facility] Hemoglobin 11.3(L) 11.7 - 15.5 gm/dL [facility] Hematocrit 32.9(L) 35.7 - 45.8 % [facility] MCV 88.4 82.6 - 94.4 fL [facility] MCH 30.4 27.1 - 32.0 pg [facility] MCHC 34.3 31.7 - 35.0 gm/dL [facility] Platelets 320 145 - 357 x10(3)/[facility] RDWSD 39.5 37.0 - 46.0 [facility] RDWCV 12.2 11.5 - 14.1 % [facility] MPV 10.6 7.6 - 12.9 [facility] nRBC % Auto 0.0 % [facility] nRBC Abs Auto 0.000 0.000 - 0.000 x10(3)/[facility] Blood specimen (specimen) 04/01/2020 4:20 AM EST 04/01/2020 4:30 AM EST Narrative Resulting Agency Comment Spec In Lab Edwardo Mccormack MD HEMATOLOGY ORDERABLE S [facility] [place] [address] * (ABNORMAL) Basic Metabolic Panel (non-fasting) (04/01/2020 4:20 AM EST) Glucose Lvl 141 65 - 199 mg/dL [facility] Comment:Diabetes: >=200 mg/d L plus symptoms BUN 11 8 - 18 mg/dL [facility] Creatinine 0.48(L) 0.70 - 1.20 mg/dL [facility] Sodium 130(L) 135 - 145 mmol/L [facility] Potassium 3.5 3.5 - 5.0 mmol/L [facility] Comment: Please note: ??Patients with WBC >100,000 may have falsely elevated Potassium levels. ??For accurate Potassium quantification in these patients send serum separator tube (gold top) for subsequent determinations. ??Contact the Clinical Chemistry Laboratory if there are any questions. Chloride 91(L) 98 - 107 mmol/L [facility] CO2 31 22 - 31 mmol/L [facility] Anion Gap 8 5 - 15 mmol/L [facility] Calcium 8.3(L) 8.5 - 10.5 mg/dL [facility] Estimated GFR 97 >=60 mL/min/1. 73 m?? [facility] Comment: This patient? s estimated glomerular filtration rate (eGFR) is between 97 mL/min/1.73 m2 (patients with less muscle mass) and 113 mL/min/1.73 m2 (patients with more muscle mass) as determined by the CKD-EPI equation. Assessment of eGFR is not appropriate when creatinine concentrations are rapidly changing. For clinical decisions where creatinine clearance will affect therapy, a 24-hour urine creatinine clearance may be advised. Assignment of CKD stage 1 ? 5 for patients with an eGFR near the transition point between stages may be based on clinical assessment of muscle mass and symptoms in addition to eGFR. Blood specimen (specimen) 04/01/2020 4:20 AM EST 04/01/2020 4:30 AM EST Narrative Resulting Agency Comment Spec In Lab Davian Carolina MD CHEMISTRY ORDERABL ES Performing Organization Address City/[facility]/ZIP Co de Phone Number [facility] [place] [address] * POCT Glucose (04/01/2020 12:06 AM EST) POC Glucose 141 65 - 199 mg/dL [facility] Comment: Supplemental ranges: <140 mg/dL before meals <180 mg/dL all other times of the day Blood specimen (specimen) 04/01/2020 12:06 AM EST 04/01/2020 12:06 AM EST Davian Carolina MD POINT OF CARE TEST ORDERABLES [facility] [place] [address] * POCT Glucose (03/31/2020 8:52 PM EST) POC Glucose 159 65 - 199 mg/dL [facility] Comment: Supplemental ranges: <140 mg/dL before meals <180 mg/dL all other times of the day Blood specimen (specimen) 03/31/2020 8:52 PM EST 03/31/2020 8:52 PM EST Davian Carolina MD POINT OF CARE TEST ORDERABLES [facility] [place] [place] [address] * XR Abdomen Flat & Upright (03/31/2020 6:57 PM EST) Anatomical Region Laterality Modality Abdomen N/A Digital Radiogra phy Impressions 03/31/2020 7:13 PM EST 1. ??Allowing for confounding effect of extensive body wall air, no definite pneumoperitoneum. 2. ??Nonobstructive bowel gas pattern. 3. ??Small amount of pneumobilia, question secondary to recent instrumentation. Thank you for letting us participate in the care of this patient. For questions regarding this report, please contact the number below. ? Narrative 03/31/2020 7:13 PM EST EXAMINATION: XR ABDOMEN FLAT AND UPRIGHT CLINICAL HISTORY: Nausea, vomiting, concern for gastroparesis TECHNIQUE: AP supine and left lateral decubitus radiographs of the abdomen. COMPARISON: No prior abdominal radiographs are available for comparison. Comparison made to CT 03/26/2020. FINDINGS: Enteric tube and a drain have been removed. Surgical clips are present, as before. Extensive subcutaneous/body wall air is seen. Small amount of air and stool in the nondilated colon down to the rectum. No dilated loops of small bowel. No bowel air-fluid levels are seen. No appreciable pneumatosis. Allowing for confounding body wall air, no pneumoperitoneum identified. However, a small amount of branching lucency consistent with pneumobilia is seen, best demonstrated on the decubitus radiograph. Small effusion and atelectasis at left lung base. Procedure Note Gabby Kong MD - 03/31/2020 EXAMINATION: XR ABDOMEN FLAT AND UPRIGHT CLINICAL HISTORY: Nausea, vomiting, concern for gastroparesis TECHNIQUE: AP supine and left lateral decubitus radiographs of theabdomen. COMPARISON: No prior abdominal radiographs are available for comparison. Comparison made to CT 03/26/2020. FINDINGS: Enteric tube and a drain have been removed. Surgical clips are present,as before. Extensive subcutaneous/body wall air is seen. Small amount of air and stool in the nondilated colon down to the rectum.No dilated loops of small bowel. No bowel air-fluid levels are seen. Noappreciable pneumatosis. Allowing for confounding body wall air, no pneumoperitoneum identified. However, a small amount of branching lucency consistent with pneumobilia is seen, best demonstrated on the decubitus radiograph. Small effusion and atelectasis at left lung base. IMPRESSION 1. Allowing for confounding effect of extensive body wall air, nodefinite pneumoperitoneum. 2. Nonobstructive bowel gas pattern. 3. Small amount of pneumobilia, question secondary to recentinstrumentation. Thank you for letting us participate in the care of this patient. Forquestions regarding this report, please contact the number below. Davian Carolina MD IMG DX ORDERABLES * POCT Glucose (03/31/2020 4:52 PM EST) POC Glucose 169 65 - 199 mg/dL [facility] Comment: Supplemental ranges: <140 mg/dL before meals <180 mg/dL all other times of the day Blood specimen (specimen) 03/31/2020 4:52 PM EST 03/31/2020 4:52 PM EST Davian Carolina MD POINT OF CARE TEST ORDERABLES Performing Organization Address [facility] Co de Phone Number [facility] [place] [address] * POCT Glucose (03/31/2020 12:03 PM EST) POC Glucose 134 65 - 199 mg/dL [facility] Comment: Supplemental ranges: <140 mg/dL before meals <180 mg/dL all other times of the day Blood specimen (specimen) 03/31/2020 12:03 PM EST 03/31/2020 12:03 PM EST Davian Carolina MD POINT OF CARE TEST ORDERABLES Performing Organization Address [facility] de Phone Number [facility] [place] [address] * POCT Glucose (03/31/2020 7:35 AM EST) POC Glucose 128 65 - 199 mg/dL [facility] Comment: Supplemental ranges: <140 mg/dL before meals <180 mg/dL all other times of the day Blood specimen (specimen) 03/31/2020 7:35 AM EST 03/31/2020 7:35 AM EST Davian Carolina MD POINT OF CARE TEST ORDERABLES Performing Organization Address [facility] de Phone Number [facility] [place] [address] * (ABNORMAL) Differential, Automated (03/31/2020 6:36 AM EST) Neutrophils % 81.8 % [facility] Neutr Abs (ANC) 7.38(H) 1.70 - 6.10 x10(3)/mc L [facility] Lymphocytes % 7.7 % [facility] Lymphocytes Abs 0.7(L) 0.9 - 3.2 x10(3)/[facility] LABORAT[facility] Monocytes % 6.9 % [facility] Monocyte Abs 0.6 0.3 - 0.9 x10(3)/[facility] LAB[facility] Eosinophils % 2.7 % [facility] Eosinophils Abs 0.2 0.0 - 0.4 x10(3)/[facility] LABOR[facility] Basophils % 0.3 % [facility] Basophils Abs 0.0 0.0 - 0.1 x10(3)/[facility] LABORATORY Immature Gran % 0.60 % [facility] Comment: Immature granulocytes(IG's)percentage and absolute count will include metamyelocytes, myelocytes, and promyelocytes. Blood smears from CBCs yielding IG's will be scanned manually for concordance. If this scan disagrees with the automated IG or if promyelocytes are noted, a manual differential will be performed. Nory Gran Abs 0.05(H) 0.00 - 0.04 x10(3)/[facility] LAB[facility]ORY Blood specimen (specimen) 03/31/2020 6:36 AM EST 03/31/2020 6:55 AM EST Narrative Resulting Agency Comment Spec In Lab Anjelica Jordan APRN HEMATOLOGY ORDER MAGAN Performing Organization Address City/State/[facility] Co de Phone Number [facility] [place] [address] * (ABNORMAL) Hemogram (03/31/2020 6:36 AM EST) WBC 9.0 4.0 - 9.5 x10(3)/[facility] LABORATORY RBC 3.76(L) 4.00 - 5.21 x10(6)/[facility] LAB[facility]ORY Hemoglobin 11.4(L) 11.7 - 15.5 gm/dL [facility] Hematocrit 33.7(L) 35.7 - 45.8 % [facility] MCV 89.6 82.6 - 94.4 fL [facility] MCH 30.3 27.1 - 32.0 pg [facility] MCHC 33.8 31.7 - 35.0 gm/dL [facility] Platelets 252 145 - 357 x10(3)/[facility] LABORATORY RDWSD 41.2 37.0 - 46.0 fL [facility] RDWCV 12.5 11.5 - 14.1 % [facility] MPV 10.7 7.6 - 12.9 fL [facility] nRBC % Auto 0.0 % [facility] nRBC Abs Auto 0.000 0.000 - 0.000 x10(3)/[facility] Blood specimen (specimen) 03/31/2020 6:36 AM EST 03/31/2020 6:55 AM EST Narrative Resulting Agency Comment Spec In Lab Anjelica Jordan APRN HEMATOLOGY ORDER MAGAN [facility] [place] [address] * (ABNORMAL) BMP w/fasting Glucose (03/31/2020 6:36 AM EST) Glucose Fasting 115(H) 65 - 99 mg/dL [facility] Comment: ?Fasting* Glucose Interpretive Criteria Normal ?65-99 mg/dL Impaired Fasting glucose ?100-125 mg/dL Consistent with Diabetes Mellitus ? >or= 126 mg/dL *Fasting is defined as no caloric intake for at least 8 hours In the absence of unequivocal hyperglycemia a plasma glucose value of >or= 126 mg/dL should be repeated on a subsequent day. Diagnosis and Classification of Diabetes Mellitus, Position Statement from the [employer]. ??Diabetes Care, Volume 33, Supplement 1, Apr 2009 BUN 16 8 - 18 mg/dL [facility] Creatinine 0.48(L) 0.70 - 1.20 mg/dL [facility] Sodium 133(L) 135 - 145 mmol/L [facility] Potassium 3.9 3.5 - 5.0 mmol/L [facility] Comment: Please note: ??Patients with WBC >100,000 may have falsely elevated Potassium levels. ??For accurate Potassium quantification in these patients send serum separator tube (gold top) for subsequent determinations. ??Contact the Clinical Chemistry Laboratory if there are any questions. Chloride 95(L) 98 - 107 mmol/L [facility] CO2 29 22 - 31 mmol/L [facility] Anion Gap 9 5 - 15 mmol/L [facility] Calcium 8.7 8.5 - 10.5 mg/dL [facility] Estimated GFR 97 >=60 mL/min/1. 73 m?? [facility] Comment: This patient? s estimated glomerular filtration rate (eGFR) is between 97 mL/min/1.73 m2 (patients with less muscle mass) and 113 mL/min/1.73 m2 (patients with more muscle mass) as determined by the CKD-EPI equation. Assessment of eGFR is not appropriate when creatinine concentrations are rapidly changing. For clinical decisions where creatinine clearance will affect therapy, a 24-hour urine creatinine clearance may be advised. Assignment of CKD stage 1 ? 5 for patients with an eGFR near the transition point between stages may be based on clinical assessment of muscle mass and symptoms in addition to eGFR. Blood specimen (specimen) 03/31/2020 6:36 AM EST 03/31/2020 6:55 AM EST Narrative Resulting Agency Comment Spec In Lab Davian Carolina MD CHEMISTRY ORDERABL ES [facility] [place] [address] * Phosphorus (03/31/2020 6:36 AM EST) Phosphorus 3.7 2.5 - 4.5 mg/dL [facility] Blood specimen (specimen) 03/31/2020 6:36 AM EST 03/31/2020 6:55 AM EST Narrative Resulting Agency Comment Spec In Lab Anjelica Jordan MEAL COOKER CHEMISTRY ORDERA BLES Performing Organization Address [facility] de Phone Number [facility] [place] [address] * Magnesium (03/31/2020 6:36 AM EST) Magnesium 0.77 0.69 - 1.07 mmol/L [facility] Blood specimen (specimen) 03/31/2020 6:36 AM EST 03/31/2020 6:55 AM EST Narrative Resulting Agency Comment Spec In Lab Anjelica Jordan MEAL [employer]ER CHEMISTRY ORDERA BLES Performing Organization Address [facility] de Phone Number [facility] [place] [address] * POCT Glucose (03/30/2020 8:05 PM EST) [facility] POC Glucose 136 65 - 199 mg/dL [facility] Comment: Supplemental ranges: <140 mg/dL before meals <180 mg/dL all other times of the day Blood specimen (specimen) 03/30/2020 8:05 PM EST 03/30/2020 8:05 PM EST Davian Carolina MD POINT OF CARE TEST ORDERABLES Performing Organization Address [facility] Co de Phone Number [facility] [place] [address] * POCT Glucose (03/30/2020 4:55 PM EST) POC Glucose 129 65 - 199 mg/dL [facility] Comment: Supplemental ranges: <140 mg/dL before meals <180 mg/dL all other times of the day Blood specimen (specimen) 03/30/2020 4:55 PM EST 03/30/2020 4:55 PM EST Davian Carolina MD POINT OF CARE TEST ORDERABLES Performing Organization Address [facility] Co de Phone Number [facility] [place] [address] * C-peptide (03/30/2020 1:45 PM EST) C-Peptide 1.4 0.8 - 5.2 ng/mL [facility] Blood specimen (specimen) 03/30/2020 1:45 PM EST 03/30/2020 1:52 PM EST Narrative Resulting Agency Comment Spec In Lab Katie Santamaria APRN CHEMISTRY ORDERABLE S Performing Organization Address [facility] Phone Number [facility] [place] [address] * POCT Glucose (03/30/2020 11:41 AM EST) POC Glucose 156 65 - 199 mg/dL [facility] Comment: Supplemental ranges: <140 mg/dL before meals <180 mg/dL all other times of the day Blood specimen (specimen) 03/30/2020 11:41 AM EST 03/30/2020 11:41 AM EST Davian Carolina MD POINT OF CARE TEST ORDERABLES Performing Organization Address [facility] de Phone Number [facility] [place] [address] * POCT Glucose (03/30/2020 7:43 AM EST) POC Glucose 160 65 - 199 mg/dL [facility] Comment: Supplemental ranges: <140 mg/dL before meals <180 mg/dL all other times of the day Blood specimen (specimen) 03/30/2020 7:43 AM EST 03/30/2020 7:43 AM EST Davian Carolina MD POINT OF CARE TEST ORDERABLES [facility] [place] [address] * (ABNORMAL) Hemoglobin A1c (03/30/2020 1:20 AM EST) Hemoglobin A1C 5.8(H) 4.3 - 5.6 % [facility] Comment: Reference Range: 4.3 - [...] Mellitus, Diabetes Care 2013; 36: Suppl. 1, S67-07 Est Avg Gluc See note mg/dL [facility] Comment: Estimated Average Glucose not [...] into estimated average glucose values. ??Diabetes Care 2008:31(8):7652-4513. Blood specimen (specimen) Venous Draw / Unknown 03/30/2020 1:20 AM EST 03/30/2020 8:28 AM EST Narrative Resulting Agency Comment Spec In Lab Anjelica Jordan MEAL COOKER CHEMISTRY ORDERA BLES [facility] [place] [address] * (ABNORMAL) Differential, Automated (03/30/2020 1:20 AM EST) Neutrophils % 77.8 % [facility] Neutr Abs (ANC) 8.06(H) 1.70 - 6.10 x10(3)/[facility] LABORATORY Lymphocytes % 12.1 % [facility] Lymphocytes Abs 1.2 0.9 - 3.2 x10(3)/[facility] LABORATORY Monocytes % 7.0 % [facility] Monocyte Abs 0.7 0.3 - 0.9 x10(3)/[facility] LAB[facility]ORY Eosinophils % 2.4 % [facility] Eosinophils Abs 0.2 0.0 - 0.4 x10(3)/[facility] LABOR[facility]ORY Basophils % 0.2 % [facility] Basophils Abs 0.0 0.0 - 0.1 x10(3)/[facility] LABORATORY Immature Gran % 0.50 % [facility] Comment: Immature granulocytes(IG's)percentage and absolute count will include metamyelocytes, myelocytes, and promyelocytes. Blood smears from CBCs yielding IG's will be scanned manually for concordance. If this scan disagrees with the automated IG or if promyelocytes are noted, a manual differential will be performed. Nory Gran Abs 0.05(H) 0.00 - 0.04 x10(3)/ L [facility] Blood specimen (specimen) 03/30/2020 1:20 AM EST 03/30/2020 1:33 AM EST Narrative Resulting Agency Comment Spec In Lab Anjelica Jordan APRN HEMATOLOGY ORDER MAGAN [facility] [place] [address] * (ABNORMAL) Hemogram (03/30/2020 1:20 AM EST) WBC 10.4(H) 4.0 - 9.5 x10(3)/[facility] LABORATORY RBC 3.91(L) 4.00 - 5.21 x10(6)/[facility] LAB[facility]ORY Hemoglobin 12.0 11.7 - 15.5 gm/dL [facility] Hematocrit 34.9(L) 35.7 - 45.8 % [facility] MCV 89.3 82.6 - 94.4 [facility] LABORATORY MCH 30.7 27.1 - 32.0 pg [facility] MCHC 34.4 31.7 - 35.0 gm/dL [facility] Platelets 231 145 - 357 x10(3)/[facility] LABORATORY RDWSD 40.1 37.0 - 46.0 [facility] LABORATORY RDWCV 12.4 11.5 - 14.1 % [facility] MPV 10.2 7.6 - 12.9 [facility] LABORATORY nRBC % Auto 0.0 % [facility] nRBC Abs Auto 0.000 0.000 - 0.000 x10(3)/[facility] Blood specimen (specimen) 03/30/2020 1:20 AM EST 03/30/2020 1:33 AM EST Narrative Resulting Agency Comment Spec In Lab Anjelica Jordan APRN HEMATOLOGY ORDER MAGAN Performing Organization Address City/[facility]/ZIP Co de Phone Number [facility] [place] [address] * (ABNORMAL) BMP w/fasting Glucose (03/30/2020 1:20 AM EST) [facility] Signature Glucose Fasting 158(H) 65 - 99 mg/dL [facility] Comment: ?Fasting* Glucose Interpretive Criteria Normal ?65-99 mg/dL Impaired Fasting glucose ?100-125 mg/dL Consistent with Diabetes Mellitus ? >or= 126 mg/dL *Fasting is defined as no caloric intake for at least 8 hours In the absence of unequivocal hyperglycemia a plasma glucose value of >or= 126 mg/dL should be repeated on a subsequent day. Diagnosis and Classification of Diabetes Mellitus, Position Statement from the [employer]. ??Diabetes Care, Volume 33, Supplement 1, Apr 2009 BUN 15 8 - 18 mg/dL [facility] Creatinine 0.40(L) 0.70 - 1.20 mg/dL [facility] Sodium 135 135 - 145 mmol/L [facility] Potassium 3.7 3.5 - 5.0 mmol/L [facility] Comment: Please note: ??Patients with WBC >100,000 may have falsely elevated Potassium levels. ??For accurate Potassium quantification in these patients send serum separator tube (gold top) for subsequent determinations. ??Contact the Clinical Chemistry Laboratory if there are any questions. Chloride 98 98 - 107 mmol/L [facility] CO2 28 22 - 31 mmol/L [facility] Anion Gap 9 5 - 15 mmol/L [facility] Calcium 8.2(L) 8.5 - 10.5 mg/dL [facility] Estimated GFR 103 >=60 mL/min/1. 73 m?? [facility] Comment: This patient? s estimated glomerular filtration rate (eGFR) is between 103 mL/min/1.73 m2 (patients with less muscle mass) and 120 mL/min/1.73 m2 (patients with more muscle mass) as determined by the CKD-EPI equation. Assessment of eGFR is not appropriate when creatinine concentrations are rapidly changing. For clinical decisions where creatinine clearance will affect therapy, a 24-hour urine creatinine clearance may be advised. Assignment of CKD stage 1 ? 5 for patients with an eGFR near the transition point between stages may be based on clinical assessment of muscle mass and symptoms in addition to eGFR. Blood specimen (specimen) 03/30/2020 1:20 AM EST 03/30/2020 1:33 AM EST Narrative Resulting Agency Comment Spec In Lab Davian Carolina MD CHEMISTRY ORDERABL ES Performing Organization Address [facility] Co de Phone Number [facility] [place] [address] * Phosphorus (03/30/2020 1:20 AM EST) Phosphorus 3.3 2.5 - 4.5 mg/dL [facility] Blood specimen (specimen) 03/30/2020 1:20 AM EST 03/30/2020 1:33 AM EST Narrative Resulting Agency Comment Spec In Lab Anjelica Jordan MEAL [employer]OOKER CHEMISTRY ORDERA BLES Performing Organization Address [facility] Co de Phone Number [facility] [place] [address] * Magnesium (03/30/2020 1:20 AM EST) Magnesium 0.83 0.69 - 1.07 mmol/L [facility] Blood specimen (specimen) 03/30/2020 1:20 AM EST 03/30/2020 1:33 AM EST Narrative Resulting Agency Comment Spec In Lab Anjelica Jordan MEAL [employer]OOKER CHEMISTRY ORDERA BLES Performing Organization Address [facility] Co de Phone Number [facility] [place] [address] * POCT Glucose (03/29/2020 8:57 PM EST) POC Glucose 154 65 - 199 mg/dL [facility] Comment: Supplemental ranges: <140 mg/dL before meals <180 mg/dL all other times of the day Blood specimen (specimen) 03/29/2020 8:57 PM EST 03/29/2020 8:57 PM EST Davian Carolina MD POINT OF CARE TEST ORDERABLES Performing Organization Address City/[facility]/ZIP Co de Phone Number [facility] [place] [address] * POCT Glucose (03/29/2020 4:13 PM EST) POC Glucose 181 65 - 199 mg/dL [facility] Comment: Supplemental ranges: <140 mg/dL before meals <180 mg/dL all other times of the day Blood specimen (specimen) 03/29/2020 4:13 PM EST 03/29/2020 4:13 PM EST Davian Carolina MD POINT OF CARE TEST ORDERABLES Performing Organization Address [facility] Co de Phone Number [facility] [place] [address] * POCT Glucose (03/29/2020 12:25 PM EST) POC Glucose 196 65 - 199 mg/dL [facility] Comment: Supplemental ranges: <140 mg/dL before meals <180 mg/dL all other times of the day Blood specimen (specimen) 03/29/2020 12:25 PM EST 03/29/2020 12:25 PM EST Davian Carolina MD POINT OF CARE TEST ORDERABLES Performing Organization Address City/[facility]/ZIP Co de Phone Number [facility] [place] [address] * POCT Glucose (03/29/2020 8:24 AM EST) POC Glucose 171 65 - 199 mg/dL [facility] Comment: Supplemental ranges: <140 mg/dL before meals <180 mg/dL all other times of the day Blood specimen (specimen) 03/29/2020 8:24 AM EST 03/29/2020 8:24 AM EST Davian Carolina MD POINT OF CARE TEST ORDERABLES Performing Organization Address [facility] Phone Number [facility] [place] [address] * POCT Glucose (03/29/2020 4:22 AM EST) POC Glucose 151 65 - 199 mg/dL [facility] Comment: Supplemental ranges: <140 mg/dL before meals <180 mg/dL all other times of the day Blood specimen (specimen) 03/29/2020 4:22 AM EST 03/29/2020 4:22 AM EST Davian Carolina MD POINT OF CARE TEST ORDERABLES Performing Organization Address [facility] Phone Number [facility] [place] [address] * Phosphorus (03/29/2020 2:30 AM EST) Phosphorus 3.0 2.5 - 4.5 mg/dL [facility] Blood specimen (specimen) 03/29/2020 2:30 AM EST 03/29/2020 2:46 AM EST Narrative Resulting Agency Comment Spec In Lab Davian Carolina MD CHEMISTRY ORDERABL ES Performing Organization Address [facility] Phone Number [facility] [place] [address] * Magnesium (03/29/2020 2:30 AM EST) Magnesium 0.86 0.69 - 1.07 mmol/L [facility] Blood specimen (specimen) 03/29/2020 2:30 AM EST 03/29/2020 2:46 AM EST Narrative Resulting Agency Comment Spec In Lab Davian Carolina MD CHEMISTRY ORDERABL ES [facility] [place] [address] * (ABNORMAL) Basic Metabolic Panel (non-fasting) (03/29/2020 2:30 AM EST) Glucose Lvl 163 65 - 199 mg/dL [facility] Comment:Diabetes: >=200 mg/d L plus symptoms BUN 18 8 - 18 mg/dL [facility] Creatinine 0.40(L) 0.70 - 1.20 mg/dL [facility] Sodium 139 135 - 145 mmol/L [facility] Potassium 3.6 3.5 - 5.0 mmol/L [facility] Comment: Please note: ??Patients with WBC >100,000 may have falsely elevated Potassium levels. ??For accurate Potassium quantification in these patients send serum separator tube (gold top) for subsequent determinations. ??Contact the Clinical Chemistry Laboratory if there are any questions. Chloride 104 98 - 107 mmol/L [facility] CO2 28 22 - 31 mmol/L [facility] Anion Gap 7 5 - 15 mmol/L [facility] Calcium 7.9(L) 8.5 - 10.5 mg/dL [facility] Estimated GFR 103 >=60 mL/min/1. 73 m?? [facility] Comment: This patient? s estimated glomerular filtration rate (eGFR) is between 103 mL/min/1.73 m2 (patients with less muscle mass) and 120 mL/min/1.73 m2 (patients with more muscle mass) as determined by the CKD-EPI equation. Assessment of eGFR is not appropriate when creatinine concentrations are rapidly changing. For clinical decisions where creatinine clearance will affect therapy, a 24-hour urine creatinine clearance may be advised. Assignment of CKD stage 1 ? 5 for patients with an eGFR near the transition point between stages may be based on clinical assessment of muscle mass and symptoms in addition to eGFR. Blood specimen (specimen) 03/29/2020 2:30 AM EST 03/29/2020 2:46 AM EST Narrative Resulting Agency Comment Spec In Lab Davian Carolina MD CHEMISTRY ORDERABL ES Performing Organization Address City/[facility]/[place] [address] * Differential, Automated (03/29/2020 1:20 AM EST) Neutrophils % 71.0 % [facility] Neutr Abs (ANC) 4.85 1.70 - 6.10 x10(3)/[facility] Lymphocytes % 15.4 % [facility] Lymphocytes Abs 1.0 0.9 - 3.2 x10(3)/[facility] Monocytes % 10.1 % [facility] Monocyte Abs 0.7 0.3 - 0.9 x10(3)/[facility] Eosinophils % 2.6 % [facility] Eosinophils Abs 0.2 0.0 - 0.4 x10(3)/[facility] Basophils % 0.3 % [facility] Basophils Abs 0.0 0.0 - 0.1 x10(3)/[facility] Immature Gran % 0.60 % [facility] Comment: Immature granulocytes(IG's)percentage and absolute count will include metamyelocytes, myelocytes, and promyelocytes. Blood smears from CBCs yielding IG's will be scanned manually for concordance. If this scan disagrees with the automated IG or if promyelocytes are noted, a manual differential will be performed. Nory Gran Abs 0.04 0.00 - 0.04 x10(3)/[facility] Blood specimen (specimen) 03/29/2020 1:20 AM EST 03/29/2020 1:42 AM EST Narrative Resulting Agency Comment Spec In Lab Anjelica Jordan APRN HEMATOLOGY ORDER MAGAN Performing Organization Address City/[facility]/ZIP Co de Phone Number [facility] [place] [address] * (ABNORMAL) Hemogram (03/29/2020 1:20 AM EST) Pathologist [facility] WBC 6.8 4.0 - 9.5 x10(3)/[facility] RBC 3.37(L) 4.00 - 5.21 x10(6)/[facility] Hemoglobin 11.3(L) 11.7 - 15.5 gm/dL [facility] Hematocrit 31.8(L) 35.7 - 45.8 % [facility] MCV 94.4 82.6 - 94.4 fL [facility] MCH 33.5(H) 27.1 - 32.0 pg [facility] MCHC 35.5(H) 31.7 - 35.0 gm/dL [facility] Platelets 176 145 - 357 x10(3)/[facility] RDWSD 43.8 37.0 - 46.0 [facility] RDWCV 12.6 11.5 - 14.1 % [facility] MPV 10.4 7.6 - 12.9 fL [facility] nRBC % Auto 0.0 % [facility] nRBC Abs Auto 0.000 0.000 - 0.000 x10(3)/[facility] Blood specimen (specimen) 03/29/2020 1:20 AM EST 03/29/2020 1:42 AM EST Narrative Resulting Agency Comment Spec In Lab Anjelica Jordan APRN HEMATOLOGY ORDER MAGAN [facility] [place] [address] * POCT Glucose (03/29/2020 12:05 AM EST) POC Glucose 142 65 - 199 mg/dL [facility] Comment: Supplemental ranges: <140 mg/dL before meals <180 mg/dL all other times of the day Blood specimen (specimen) 03/29/2020 12:05 AM EST 03/29/2020 12:05 AM EST Davian Carolina MD POINT OF CARE TEST ORDERABLES Performing Organization Address [facility] Co de Phone Number [facility] [place] [address] * POCT Glucose (03/28/2020 7:28 PM EST) POC Glucose 174 65 - 199 mg/dL [facility] Comment: Supplemental ranges: <140 mg/dL before meals <180 mg/dL all other times of the day Blood specimen (specimen) 03/28/2020 7:28 PM EST 03/28/2020 7:28 PM EST Davian Carolina MD POINT OF CARE TEST ORDERABLES Performing Organization Address [facility] Co de Phone Number [facility] [place] [address] * POCT Glucose (03/28/2020 4:01 PM EST) POC Glucose 190 65 - 199 mg/dL [facility] Comment: Supplemental ranges: <140 mg/dL before meals <180 mg/dL all other times of the day Blood specimen (specimen) 03/28/2020 4:01 PM EST 03/28/2020 4:01 PM EST Davian Carolina MD POINT OF CARE TEST ORDERABLES Performing Organization Address [facility] Co de Phone Number [facility] [place] [address] * POCT Glucose (03/28/2020 11:34 AM EST) POC Glucose 188 65 - 199 mg/dL [facility] Comment: Supplemental ranges: <140 mg/dL before meals <180 mg/dL all other times of the day Blood specimen (specimen) 03/28/2020 11:34 AM EST 03/28/2020 11:34 AM EST Davian Carolina MD POINT OF CARE TEST ORDERABLES Performing Organization Address [facility] Co de Phone Number [facility] [place] [address] * POCT Glucose (03/28/2020 7:30 AM EST) POC Glucose 180 65 - 199 mg/dL [facility] Comment: Supplemental ranges: <140 mg/dL before meals <180 mg/dL all other times of the day Blood specimen (specimen) 03/28/2020 7:30 AM EST 03/28/2020 7:30 AM EST Davian Carolina MD POINT OF CARE TEST ORDERABLES Performing Organization Address [facility] Phone Number [facility] [place] [address] * Amylase Level Body Fluid KHRIS Drain (03/28/2020 4:00 AM EST) Amylase, BF 12 unit/L [facility] Comment: No reference range is available for the specimen type submitted. ??The performance of this assay for the submitted type has not been validated and results should be interpreted accordingly and with regard to the patient's clinical status. Amylase BF Type KHRIS Drain [facility] KHRIS Drain 03/28/2020 4:00 AM EST 03/28/2020 4:16 AM EST Narrative Resulting Agency Comment Spec In Lab Davian Carolina MD BODY FLUIDS AND ST OOLS ORDERABLES Performing Organization Address [facility] Co de Phone Number [facility] [place] [address] * (ABNORMAL) POCT Glucose (03/28/2020 3:57 AM EST) POC Glucose 200(H) 65 - 199 mg/dL [facility] Comment: Supplemental ranges: <140 mg/dL before meals <180 mg/dL all other times of the day Blood specimen (specimen) 03/28/2020 3:57 AM EST 03/28/2020 3:57 AM EST Davian Carolina MD POINT OF CARE TEST ORDERABLES [facility] [place] [address] * Differential, Automated (03/28/2020 1:45 AM EST) Neutrophils % 69.0 % [facility] Neutr Abs (ANC) 4.74 1.70 - 6.10 x10(3)/[facility] Lymphocytes % 16.0 % [facility] Lymphocytes Abs 1.1 0.9 - 3.2 x10(3)/[facility] Monocytes % 10.3 % [facility] Monocyte Abs 0.7 0.3 - 0.9 x10(3)/[facility] Eosinophils % 4.1 % [facility] Eosinophils Abs 0.3 0.0 - 0.4 x10(3)/[facility] Basophils % 0.3 % [facility] Basophils Abs 0.0 0.0 - 0.1 x10(3)/[facility] Immature Gran % 0.30 % [facility] Comment: Immature granulocytes(IG's)percentage and absolute count will include metamyelocytes, myelocytes, and promyelocytes. Blood smears from CBCs yielding IG's will be scanned manually for concordance. If this scan disagrees with the automated IG or if promyelocytes are noted, a manual differential will be performed. Nory Gran Abs 0.02 0.00 - 0.04 x10(3)/[facility] Blood specimen (specimen) 03/28/2020 1:45 AM EST 03/28/2020 1:52 AM EST Narrative Resulting Agency Comment Spec In Lab Anjelica Jordan APRN HEMATOLOGY ORDER MAGAN [facility] [place] [address] * (ABNORMAL) Hemogram (03/28/2020 1:45 AM EST) WBC 6.9 4.0 - 9.5 x10(3)/[facility] RBC 3.68(L) 4.00 - 5.21 x10(6)/[facility] Hemoglobin 11.3(L) 11.7 - 15.5 gm/dL [facility] Hematocrit 33.4(L) 35.7 - 45.8 % [facility] MCV 90.8 82.6 - 94.4 [facility] MCH 30.7 27.1 - 32.0 pg [facility] MCHC 33.8 31.7 - 35.0 gm/dL [facility] Platelets 205 145 - 357 x10(3)/[facility] RDWSD 40.5 37.0 - 46.0 [facility] RDWCV 12.1 11.5 - 14.1 % [facility] MPV 10.0 7.6 - 12.9 [facility] nRBC % Auto 0.0 % [facility] nRBC Abs Auto 0.000 0.000 - 0.000 x10(3)/[facility] Blood specimen (specimen) 03/28/2020 1:45 AM EST 03/28/2020 1:52 AM EST Narrative Resulting Agency Comment Spec In Lab Anjelica Jordan APRN HEMATOLOGY ORDER MAGAN [facility] [place] [address] * (ABNORMAL) BMP w/fasting Glucose (03/28/2020 1:45 AM EST) Glucose Fasting 165(H) 65 - 99 mg/dL [facility] Comment: ?Fasting* Glucose Interpretive Criteria Normal ?65-99 mg/dL Impaired Fasting glucose ?100-125 mg/dL Consistent with Diabetes Mellitus ? >or= 126 mg/dL *Fasting is defined as no caloric intake for at least 8 hours In the absence of unequivocal hyperglycemia a plasma glucose value of >or= 126 mg/dL should be repeated on a subsequent day. Diagnosis and Classification of Diabetes Mellitus, Position Statement from the [employer]. ??Diabetes Care, Volume 33, Supplement 1, Apr 2009 BUN 17 8 - 18 mg/dL [facility] Creatinine 0.46(L) 0.70 - 1.20 mg/dL [facility] Sodium 139 135 - 145 mmol/L [facility] Potassium 3.7 3.5 - 5.0 mmol/L [facility] Comment: Please note: ??Patients with WBC >100,000 may have falsely elevated Potassium levels. ??For accurate Potassium quantification in these patients send serum separator tube (gold top) for subsequent determinations. ??Contact the Clinical Chemistry Laboratory if there are any questions. Chloride 103 98 - 107 mmol/L [facility] CO2 27 22 - 31 mmol/L [facility] Anion Gap 9 5 - 15 mmol/L [facility] Calcium 8.4(L) 8.5 - 10.5 mg/dL [facility] Estimated GFR 99 >=60 mL/min/1. 73 m?? [facility] Comment: This patient? s estimated glomerular filtration rate (eGFR) is between 99 mL/min/1.73 m2 (patients with less muscle mass) and 114 mL/min/1.73 m2 (patients with more muscle mass) as determined by the CKD-EPI equation. Assessment of eGFR is not appropriate when creatinine concentrations are rapidly changing. For clinical decisions where creatinine clearance will affect therapy, a 24-hour urine creatinine clearance may be advised. Assignment of CKD stage 1 ? 5 for patients with an eGFR near the transition point between stages may be based on clinical assessment of muscle mass and symptoms in addition to eGFR. Blood specimen (specimen) 03/28/2020 1:45 AM EST 03/28/2020 1:52 AM EST Narrative Resulting Agency Comment Spec In Lab Davian Carolina MD CHEMISTRY ORDERABL ES Performing Organization Address [facility] Phone Number [facility] [place] [address] * Phosphorus (03/28/2020 1:45 AM EST) Phosphorus 2.9 2.5 - 4.5 mg/dL [facility] Blood specimen (specimen) 03/28/2020 1:45 AM EST 03/28/2020 1:52 AM EST Narrative Resulting Agency Comment Spec In Lab Anjelica Jordan MEAL COOKER CHEMISTRY ORDERA BLES Performing Organization Address [facility] Phone Number [facility] [place] [address] * Magnesium (03/28/2020 1:45 AM EST) Magnesium 0.87 0.69 - 1.07 mmol/L [facility] Blood specimen (specimen) 03/28/2020 1:45 AM EST 03/28/2020 1:52 AM EST Narrative Resulting Agency Comment Spec In Lab Anjelica Jordan MEAL COOKER CHEMISTRY ORDERA BLES Performing Organization Address [facility] de Phone Number [facility] [place] [address] * (ABNORMAL) Amylase (03/28/2020 1:45 AM EST) Amylase 18(L) 28 - 100 unit/L [facility] Blood specimen (specimen) 03/28/2020 1:45 AM EST 03/28/2020 1:52 AM EST Narrative Resulting Agency Comment Spec In Lab Anjelica Jordan APRN CHEMISTRY ORDERA BLES Performing Organization Address [facility] Co de Phone Number [facility] [place] [address] * POCT Glucose (03/28/2020 12:03 AM EST) POC Glucose 157 65 - 199 mg/dL [facility] Comment: Supplemental ranges: <140 mg/dL before meals <180 mg/dL all other times of the day Blood specimen (specimen) 03/28/2020 12:03 AM EST 03/28/2020 12:03 AM EST Davian Carolina MD POINT OF CARE TEST ORDERABLES Performing Organization Address [facility] de Phone Number [facility] [place] [address] * POCT Glucose (03/27/2020 8:06 PM EST) POC Glucose 84 65 - 199 mg/dL [facility] Comment: Supplemental ranges: <140 mg/dL before meals <180 mg/dL all other times of the day Blood specimen (specimen) 03/27/2020 8:06 PM EST 03/27/2020 8:06 PM EST Davian Carolina MD POINT OF CARE TEST ORDERABLES Performing Organization Address [facility] Co de Phone Number [facility] [place] [address] * POCT Glucose (03/27/2020 4:16 PM EST) POC Glucose 190 65 - 199 mg/dL [facility] Comment: Supplemental ranges: <140 mg/dL before meals <180 mg/dL all other times of the day Blood specimen (specimen) 03/27/2020 4:16 PM EST 03/27/2020 4:16 PM EST Davian Carolina MD POINT OF CARE TEST ORDERABLES Performing Organization Address City/[facility] Co de Phone Number [facility] [place] [address] * POCT Glucose (03/27/2020 11:28 AM EST) POC Glucose 92 65 - 199 mg/dL [facility] Comment: Supplemental ranges: <140 mg/dL before meals <180 mg/dL all other times of the day Blood specimen (specimen) 03/27/2020 11:28 AM EST 03/27/2020 11:28 AM EST Davian Carolina MD POINT OF CARE TEST ORDERABLES Performing Organization Address [facility]/ZIP Co de Phone Number [facility] [place] [address] * POCT Glucose (03/27/2020 7:52 AM EST) POC Glucose 71 65 - 199 mg/dL [facility] Comment: Supplemental ranges: <140 mg/dL before meals <180 mg/dL all other times of the day Blood specimen (specimen) 03/27/2020 7:52 AM EST 03/27/2020 7:52 AM EST Davian Carolina MD POINT OF CARE TEST ORDERABLES Performing Organization Address City/[facility]/ZIP Co de Phone Number [facility] [place] [address] * POCT Glucose (03/27/2020 4:12 AM EST) POC Glucose 74 65 - 199 mg/dL [facility] Comment: Supplemental ranges: <140 mg/dL before meals <180 mg/dL all other times of the day Blood specimen (specimen) 03/27/2020 4:12 AM EST 03/27/2020 4:12 AM EST Davian Carolina MD POINT OF CARE TEST ORDERABLES [facility] [place] [address] * Amylase Level Body Fluid KHRIS Drain (03/27/2020 3:28 AM EST) Amylase, BF 327 unit/L [facility] Comment: No reference range is available for the specimen type submitted. ??The performance of this assay for the submitted type has not been validated and results should be interpreted accordingly and with regard to the patient's clinical status. Amylase BF Type KHRIS Drain [facility] KHRIS Drain 03/27/2020 3:28 AM EST 03/27/2020 5:32 AM EST Narrative Resulting Agency Comment Spec In Lab Davian Carolina MD BODY FLUIDS AND ST OOLS ORDERABLES [facility] [place] [address] * Differential, Automated (03/27/2020 3:20 AM EST) Neutrophils % 66.9 % [facility] Neutr Abs (ANC) 5.08 1.70 - 6.10 x10(3)/[facility] Lymphocytes % 18.2 % [facility] Lymphocytes Abs 1.4 0.9 - 3.2 x10(3)/[facility] Monocytes % 9.5 % [facility] Monocyte Abs 0.7 0.3 - 0.9 x10(3)/[facility] Eosinophils % 4.6 % [facility] Eosinophils Abs 0.4 0.0 - 0.4 x10(3)/[facility] Basophils % 0.5 % [facility] Basophils Abs 0.0 0.0 - 0.1 x10(3)/[facility] Immature Gran % 0.30 % [facility] Comment: Immature granulocytes(IG's)percentage and absolute count will include metamyelocytes, myelocytes, and promyelocytes. Blood smears from CBCs yielding IG's will be scanned manually for concordance. If this scan disagrees with the automated IG or if promyelocytes are noted, a manual differential will be performed. Nory Gran Abs 0.02 0.00 - 0.04 x10(3)/[facility] Blood specimen (specimen) 03/27/2020 3:20 AM EST 03/27/2020 3:35 AM EST Narrative Resulting Agency Comment Spec In Lab Anjelicafabrice Jordan JESUS ALBERTO HEMATOLOGY ORDER MAGAN [facility] [place] [address] * (ABNORMAL) Hemogram (03/27/2020 3:20 AM EST) WBC 7.6 4.0 - 9.5 x10(3)/[facility] RBC 3.82(L) 4.00 - 5.21 x10(6)/[facility] Hemoglobin 11.7 11.7 - 15.5 gm/dL [facility] Hematocrit 35.5(L) 35.7 - 45.8 % [facility] MCV 92.9 82.6 - 94.4 fL [facility] MCH 30.6 27.1 - 32.0 pg [facility] MCHC 33.0 31.7 - 35.0 gm/dL [facility] Platelets 198 145 - 357 x10(3)/[facility] RDWSD 42.6 37.0 - 46.0 [facility] RDWCV 12.5 11.5 - 14.1 % [facility] MPV 10.1 7.6 - 12.9 fL [facility] nRBC % Auto 0.0 % [facility] nRBC Abs Auto 0.000 0.000 - 0.000 x10(3)/[facility] Blood specimen (specimen) 03/27/2020 3:20 AM EST 03/27/2020 3:35 AM EST Narrative Resulting Agency Comment Spec In Lab Anjelica Jordan MEAL COOKER HEMATOLOGY ORDER MAGAN Performing Organization Address City/[facility]/ZIP Co de Phone Number [facility] [place] [address] * Phosphorus (03/27/2020 3:20 AM EST) Phosphorus 3.1 2.5 - 4.5 mg/dL [facility] Blood specimen (specimen) 03/27/2020 3:20 AM EST 03/27/2020 3:35 AM EST Narrative Resulting Agency Comment Spec In Lab Anjelica Jordan MEAL COOKER CHEMISTRY ORDERA BLES Performing Organization Address [facility] Co de Phone Number [facility] [place] [address] * Magnesium (03/27/2020 3:20 AM EST) Magnesium 0.87 0.69 - 1.07 mmol/L [facility] Blood specimen (specimen) 03/27/2020 3:20 AM EST 03/27/2020 3:35 AM EST Narrative Resulting Agency Comment Spec In Lab Anjelica Jordan APRN CHEMISTRY ORDERA BLES Performing Organization Address [facility] Co de Phone Number [facility] [place] [address] * (ABNORMAL) Comprehensive metabolic panel (non-fasting) (03/27/2020 3:20 AM EST) Glucose Lvl 73 65 - 199 mg/dL [facility] Comment:Diabetes: >=200 mg/d L plus symptoms BUN 12 8 - 18 mg/dL [facility] Comment:result rechecked-bm Creatinine 0.49(L) 0.70 - 1.20 mg/dL [facility] Sodium 139 135 - 145 mmol/L [facility] Potassium 3.8 3.5 - 5.0 mmol/L [facility] Comment: Please note: ??Patients with WBC >100,000 may have falsely elevated Potassium levels. ??For accurate Potassium quantification in these patients send serum separator tube (gold top) for subsequent determinations. ??Contact the Clinical Chemistry Laboratory if there are any questions. Chloride 101 98 - 107 mmol/L [facility] CO2 27 22 - 31 mmol/L [facility] Anion Gap 11 5 - 15 mmol/L [facility] Calcium 8.5 8.5 - 10.5 mg/dL [facility] Total Protein 5.4(L) 6.1 - 8.0 gm/dL [facility] Albumin 3.2 3.2 - 5.2 gm/dL [facility] AST 77(H) 0 - 30 unit/L [facility] ALT 160(H) 0 - 30 unit/L [facility] Alk Phos 58 35 - 105 unit/L [facility] Total Bilirubin 0.4 0.2 - 1.3 mg/dL [facility] Estimated GFR 97 >=60 mL/min/1. 73 m?? [facility] Comment: This patient? s estimated glomerular filtration rate (eGFR) is between 97 mL/min/1.73 m2 (patients with less muscle mass) and 112 mL/min/1.73 m2 (patients with more muscle mass) as determined by the CKD-EPI equation. Assessment of eGFR is not appropriate when creatinine concentrations are rapidly changing. For clinical decisions where creatinine clearance will affect therapy, a 24-hour urine creatinine clearance may be advised. Assignment of CKD stage 1 ? 5 for patients with an eGFR near the transition point between stages may be based on clinical assessment of muscle mass and symptoms in addition to eGFR. Blood specimen (specimen) 03/27/2020 3:20 AM EST 03/27/2020 3:35 AM EST Narrative Resulting Agency Comment Spec In Lab Anjelica Jordan MEAL COOKER CHEMISTRY ORDERA BLES [facility] [place] [address] * (ABNORMAL) Amylase (03/27/2020 3:20 AM EST) Amylase 25(L) 28 - 100 unit/L [facility] Blood specimen (specimen) 03/27/2020 3:20 AM EST 03/27/2020 3:35 AM EST Narrative Resulting Agency Comment Spec In Lab Anjelica Jordan APRN CHEMISTRY ORDERA BLES Performing Organization Address City/[facility]/ZIP Co de Phone Number [facility] [place] [address] * POCT Glucose (03/27/2020 3:19 AM EST) POC Glucose 73 65 - 199 mg/dL [facility] Comment: Supplemental ranges: <140 mg/dL before meals <180 mg/dL all other times of the day Blood specimen (specimen) 03/27/2020 3:19 AM EST 03/27/2020 3:19 AM EST Davian Carolina MD POINT OF CARE TEST ORDERABLES Performing Organization Address [facility] Co de Phone Number [facility] [place] [address] * POCT Glucose (03/27/2020 12:03 AM EST) POC Glucose 93 65 - 199 mg/dL [facility] Comment: Supplemental ranges: <140 mg/dL before meals <180 mg/dL all other times of the day Blood specimen (specimen) 03/27/2020 12:03 AM EST 03/27/2020 12:03 AM EST Davian Carolina MD POINT OF CARE TEST ORDERABLES Performing Organization Address City/[facility]/ZIP Co de Phone Number [facility] [place] [address] * POCT Glucose (03/26/2020 9:10 PM EST) POC Glucose 96 65 - 199 mg/dL [facility] Comment: Supplemental ranges: <140 mg/dL before meals <180 mg/dL all other times of the day Blood specimen (specimen) 03/26/2020 9:10 PM EST 03/26/2020 9:10 PM EST Davian Carolina MD POINT OF CARE TEST ORDERABLES Performing Organization Address [facility] Hospital/ZIP Co de Phone Number [facility] [place] [address] * POCT Glucose (03/26/2020 7:52 PM EST) POC Glucose 74 65 - 199 mg/dL [facility] Comment: Supplemental ranges: <140 mg/dL before meals <180 mg/dL all other times of the day Blood specimen (specimen) 03/26/2020 7:52 PM EST 03/26/2020 7:52 PM EST Davian Carolina MD POINT OF CARE TEST ORDERABLES Performing Organization Address [facility] Co de Phone Number [facility] [place] [address] * POCT Glucose (03/26/2020 3:59 PM EST) POC Glucose 87 65 - 199 mg/dL [facility] Comment: Supplemental ranges: <140 mg/dL before meals <180 mg/dL all other times of the day Blood specimen (specimen) 03/26/2020 3:59 PM EST 03/26/2020 3:59 PM EST Davian Carolina MD POINT OF CARE TEST ORDERABLES Performing Organization Address City/[facility]/ZIP Co de Phone Number [facility] [place] [address] * POCT Glucose (03/26/2020 11:39 AM EST) POC Glucose 87 65 - 199 mg/dL [facility] Comment: Supplemental ranges: <140 mg/dL before meals <180 mg/dL all other times of the day Blood specimen (specimen) 03/26/2020 11:39 AM EST 03/26/2020 11:39 AM EST Davian Carolina MD POINT OF CARE TEST ORDERABLES [facility] [place] [address] * CT Angiogram Abdomen w Contrast (03/26/2020 10:56 AM EST) Anatomical Region Laterality Modality Abdomen Computed Tomogra phy Impressions 03/26/2020 11:23 AM EST 1. ??Normal appearance of celiac axis and its branches. No evidence of aneurysm or pseudoaneurysm. 2. ??Post Whipple procedure with expected postoperative changes. 3. ??Bilateral pleural effusions with LEFT basilar focal atelectasis Thank you for letting us participate in the care of this patient. For questions regarding this report, please contact the number below. ? 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 ??Known replaced RHA- with persistent transaminitis -eval hepatic arteries TECHNIQUE: Helical CT angiogram of the abdomen was performed following the intravenous administration of contrast. 70 cc of Omnipaque 350. Maximum intensity projection (MIP) were reformatted. Multiplanar images were reviewed and 3-D images were generated on an independent workstation. COMPARISON: January 28, 2020, preoperative study FINDINGS: VASCULAR FINDINGS Abdominal aorta: No stenosis or aneurysm. Celiac axis: The celiac axis and its branches are widely patent. No evidence of aneurysm or pseudoaneurysm. Of note, the LEFT gastric artery originates from the aorta. SMA: Widely patent. Right renal artery: Widely patent. Left renal artery: 2 patent LEFT renal arteries AMANDA: Widely patent. Right common iliac artery: Widely patent, as visualized, Left common iliac artery: Widely patent, as visualized.. NON-VASCULAR FINDINGS Lower chest: Partially visualized small to moderate LEFT pleural effusion with LEFT basilar focal atelectasis. Small RIGHT pleural effusion Liver: Normal. Bile ducts: Nondilated. Gallbladder: Postcholecystectomy Pancreas: Post recent Whipple procedure. Postsurgical catheters/drains in place. No gross evidence of complication. Spleen: Normal. Adrenals: Normal. Kidneys: Normal. Lymph Nodes: No enlarged lymph nodes. Bowel: Nondilated, no wall thickening. ?? Peritoneum and mesentery: No ascites, free air, or loculated fluid collection. No mesenteric inflammation. Osseous structures: No suspicious findings. Abdominal wall diffuse subcutaneous air/emphysema, likely postoperative. 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 Known replaced RHA- with persistent transaminitis-eval hepatic arteries TECHNIQUE: Helical CT angiogram of the abdomen was performed followingthe intravenous administration of contrast. 70 cc of Omnipaque 350. Maximum intensity projection (MIP) were reformatted. Multiplanar images werereviewed and 3-D images were generated on an independent workstation. COMPARISON: January 28, 2020, preoperative study FINDINGS: VASCULAR FINDINGS Abdominal aorta: No stenosis or aneurysm. Celiac axis: The celiac axis and its branches are widely patent. Noevidence of aneurysm or pseudoaneurysm. Of note, the LEFT gastric artery originatesfrom the aorta. SMA: Widely patent. Right renal artery: Widely patent. Left renal artery: 2 patent LEFT renal arteries AMANDA: Widely patent. Right common iliac artery: Widely patent, as visualized, Left common iliac artery: Widely patent, as visualized.. NON-VASCULAR FINDINGS Lower chest: Partially visualized small to moderate LEFT pleural effusionwith LEFT basilar focal atelectasis. Small RIGHT pleural effusion Liver: Normal. Bile ducts: Nondilated. Gallbladder: Postcholecystectomy Pancreas: Post recent Whipple procedure. Postsurgical catheters/drains inplace. No gross evidence of complication. Spleen: Normal. Adrenals: Normal. Kidneys: Normal. Lymph Nodes: No enlarged lymph nodes. Bowel: Nondilated, no wall thickening. Peritoneum and mesentery: No ascites, free air, or loculated fluidcollection. No mesenteric inflammation. Osseous structures: No suspicious findings. Abdominal wall diffuse subcutaneous air/emphysema, likely postoperative. IMPRESSION 1. Normal appearance of celiac axis and its branches. No evidence ofaneurysm or pseudoaneurysm. 2. Post Whipple procedure with expected postoperative changes. 3. Bilateral pleural effusions with LEFT basilar focal atelectasis Thank you for letting us participate in the care of this patient. Forquestions regarding this report, please contact the number below. Electronically signed by: Raimundo Mccurdy MD, [facility]([phone]), at 03/26/2020 11:23 AM Davian Carolina MD IMG CT ORDERABLES * POCT Glucose (03/26/2020 7:32 AM EST) POC Glucose 109 65 - 199 mg/dL [facility] Comment: Supplemental ranges: <140 mg/dL before meals <180 mg/dL all other times of the day Blood specimen (specimen) 03/26/2020 7:32 AM EST 03/26/2020 7:32 AM EST Davian Carolina MD POINT OF CARE TEST ORDERABLES [facility] [place] [address] * POCT Glucose (03/26/2020 3:16 AM EST) POC Glucose 134 65 - 199 mg/dL [facility] Comment: Supplemental ranges: <140 mg/dL before meals <180 mg/dL all other times of the day Blood specimen (specimen) 03/26/2020 3:16 AM EST 03/26/2020 3:16 AM EST Davian Carolina MD POINT OF CARE TEST ORDERABLES [facility] [place] [address] * (ABNORMAL) Differential, Automated (03/26/2020 1:45 AM EST) Neutrophils % 79.2 % [facility] Neutr Abs (ANC) 7.42(H) 1.70 - 6.10 x10(3)/[facility] LABORATORY Lymphocytes % 11.3 % [facility] Lymphocytes Abs 1.1 0.9 - 3.2 x10(3)/[facility] LABORATORY Monocytes % 8.3 % [facility] Monocyte Abs 0.8 0.3 - 0.9 x10(3)/[facility] LABORATORY Eosinophils % 0.6 % [facility] Eosinophils Abs 0.1 0.0 - 0.4 x10(3)/[facility] LABORATORY Basophils % 0.3 % [facility] Basophils Abs 0.0 0.0 - 0.1 x10(3)/[facility] LABORATORY Immature Gran % 0.30 % [facility] Comment: Immature granulocytes(IG's)percentage and absolute count will include metamyelocytes, myelocytes, and promyelocytes. Blood smears from CBCs yielding IG's will be scanned manually for concordance. If this scan disagrees with the automated IG or if promyelocytes are noted, a manual differential will be performed. Nory Gran Abs 0.03 0.00 - 0.04 x10(3)/[facility] LABORATORY Blood specimen (specimen) 03/26/2020 1:45 AM EST 03/26/2020 1:56 AM EST Narrative Resulting Agency Comment Spec In Lab Anjelica Jordan APRN HEMATOLOGY ORDER MAGAN [facility] [place] [address] * (ABNORMAL) Hemogram (03/26/2020 1:45 AM EST) Pathologist [facility] WBC 9.4 4.0 - 9.5 x10(3)/[facility] LABORATORY RBC 3.74(L) 4.00 - 5.21 x10(6)/[facility] Hemoglobin 11.4(L) 11.7 - 15.5 gm/dL [facility] Hematocrit 34.3(L) 35.7 - 45.8 % [facility] MCV 91.7 82.6 - 94.4 [facility] LABORATORY MCH 30.5 27.1 - 32.0 pg [facility] MCHC 33.2 31.7 - 35.0 gm/dL [facility] Platelets 168 145 - 357 x10(3)/[facility] LABORATORY RDWSD 42.4 37.0 - 46.0 [facility] LABORATORY RDWCV 12.6 11.5 - 14.1 % [facility] MPV 10.2 7.6 - 12.9 [facility] LABORATORY nRBC % Auto 0.0 % [facility] nRBC Abs Auto 0.000 0.000 - 0.000 x10(3)/[facility] Blood specimen (specimen) 03/26/2020 1:45 AM EST 03/26/2020 1:56 AM EST Narrative Resulting Agency Comment Spec In Lab Anjelica Jordan APRN HEMATOLOGY ORDER MAGAN [facility] [place] [address] * (ABNORMAL) Phosphorus (03/26/2020 1:45 AM EST) Pathologist [facility] Phosphorus 2.3(L) 2.5 - 4.5 mg/dL [facility] Blood specimen (specimen) 03/26/2020 1:45 AM EST 03/26/2020 1:56 AM EST Narrative Resulting Agency Comment Spec In Lab Anjelica Jordan MEAL COOKER CHEMISTRY ORDERA BLES Performing Organization Address [facility] Co de Phone Number [facility] [place] [address] * Magnesium (03/26/2020 1:45 AM EST) Magnesium 0.82 0.69 - 1.07 mmol/L [facility] Blood specimen (specimen) 03/26/2020 1:45 AM EST 03/26/2020 1:56 AM EST Narrative Resulting Agency Comment Spec In Lab Anjelica Alcaraz Nikki MEAL COOKER CHEMISTRY ORDERA BLES Performing Organization Address [facility] de Phone Number [facility] [place] [address] * (ABNORMAL) Comprehensive metabolic panel (non-fasting) (03/26/2020 1:45 AM EST) Glucose Lvl 131 65 - 199 mg/dL [facility] Comment:Diabetes: >=200 mg/d L plus symptoms BUN 6(L) 8 - 18 mg/dL [facility] Creatinine 0.54(L) 0.70 - 1.20 mg/dL [facility] Sodium 139 135 - 145 mmol/L [facility] Potassium 3.4(L) 3.5 - 5.0 mmol/L [facility] Comment: Please note: ??Patients with WBC >100,000 may have falsely elevated Potassium levels. ??For accurate Potassium quantification in these patients send serum separator tube (gold top) for subsequent determinations. ??Contact the Clinical Chemistry Laboratory if there are any questions. Chloride 98 98 - 107 mmol/L [facility] CO2 29 22 - 31 mmol/L [facility] Anion Gap 12 5 - 15 mmol/L [facility] Calcium 8.6 8.5 - 10.5 mg/dL [facility] Total Protein 5.5(L) 6.1 - 8.0 gm/dL [facility] Albumin 3.3 3.2 - 5.2 gm/dL [facility] AST 166(H) 0 - 30 unit/L [facility] ALT 240(H) 0 - 30 unit/L [facility] Alk Phos 60 35 - 105 unit/L [facility] Total Bilirubin 0.6 0.2 - 1.3 mg/dL [facility] Estimated GFR 94 >=60 mL/min/1. 73 m?? [facility] Comment: This patient? s estimated glomerular filtration rate (eGFR) is between 94 mL/min/1.73 m2 (patients with less muscle mass) and 108 mL/min/1.73 m2 (patients with more muscle mass) as determined by the CKD-EPI equation. Assessment of eGFR is not appropriate when creatinine concentrations are rapidly changing. For clinical decisions where creatinine clearance will affect therapy, a 24-hour urine creatinine clearance may be advised. Assignment of CKD stage 1 ? 5 for patients with an eGFR near the transition point between stages may be based on clinical assessment of muscle mass and symptoms in addition to eGFR. Blood specimen (specimen) 03/26/2020 1:45 AM EST 03/26/2020 1:56 AM EST Narrative Resulting Agency Comment Spec In Lab Anjelica Jordan MEAL COOKER CHEMISTRY ORDERA BLES [facility] [place] [address] * (ABNORMAL) Amylase (03/26/2020 1:45 AM EST) Amylase 22(L) 28 - 100 unit/L [facility] Blood specimen (specimen) 03/26/2020 1:45 AM EST 03/26/2020 1:56 AM EST Narrative Resulting Agency Comment Spec In Lab Anjelica Jordan APRN CHEMISTRY ORDERA BLES Performing Organization Address [facility] Co de Phone Number [facility] [place] [address] * Amylase Level Body Fluid KHRIS Drain (03/26/2020 1:36 AM EST) Amylase, BF 15 unit/L [facility] Comment: No reference range is available for the specimen type submitted. ??The performance of this assay for the submitted type has not been validated and results should be interpreted accordingly and with regard to the patient's clinical status. Amylase BF Type KHRIS Drain [facility] KHRIS Drain 03/26/2020 1:36 AM EST 03/26/2020 1:58 AM EST Narrative Resulting Agency Comment Spec In Lab Davian Carolina MD BODY FLUIDS AND ST OOLS ORDERABLES Performing Organization Address [facility] Co de Phone Number [facility] [place] [address] * POCT Glucose (03/25/2020 11:11 PM EST) POC Glucose 128 65 - 199 mg/dL [facility] Comment: Supplemental ranges: <140 mg/dL before meals <180 mg/dL all other times of the day Blood specimen (specimen) 03/25/2020 11:11 PM EST 03/25/2020 11:11 PM EST Davian Carolina MD POINT OF CARE TEST ORDERABLES Performing Organization Address [facility]/ZIP Co de Phone Number [facility] [place] [address] * POCT Glucose (03/25/2020 7:53 PM EST) POC Glucose 142 65 - 199 mg/dL [facility] Comment: Supplemental ranges: <140 mg/dL before meals <180 mg/dL all other times of the day Blood specimen (specimen) 03/25/2020 7:53 PM EST 03/25/2020 7:53 PM EST Davian Carolina MD POINT OF CARE TEST ORDERABLES Performing Organization Address [facility]/ZIP Co de Phone Number [facility] [place] [address] * POCT Glucose (03/25/2020 4:23 PM EST) POC Glucose 149 65 - 199 mg/dL [facility] Comment: Supplemental ranges: <140 mg/dL before meals <180 mg/dL all other times of the day Blood specimen (specimen) 03/25/2020 4:23 PM EST 03/25/2020 4:23 PM EST Davian Carolina MD POINT OF CARE TEST ORDERABLES Performing Organization Address [facility] Co de Phone Number [facility] [place] [address] * POCT Glucose (03/25/2020 12:36 PM EST) POC Glucose 132 65 - 199 mg/dL [facility] Comment: Supplemental ranges: <140 mg/dL before meals <180 mg/dL all other times of the day Blood specimen (specimen) 03/25/2020 12:36 PM EST 03/25/2020 12:36 PM EST Davian Carolina MD POINT OF CARE TEST ORDERABLES Performing Organization Address City/[facility]/ZIP Co de Phone Number [facility] [place] [address] * (ABNORMAL) Urinalysis Microscopic Exam (03/25/2020 10:21 AM EST) RBC UA 5(H) 0 - 4 /HPF [facility] WBC UA 3 0 - 5 /HPF [facility] Squam Epith UA 1 <=4 /HPF [facility] Hyaline Cast UA 8(H) 0 - 2 /LPF [facility] Urine specimen obtained via indwelling urinary catheter (specimen) 03/25/2020 10:21 AM EST 03/25/2020 11:31 AM EST Narrative Resulting Agency Comment Spec In Lab Anjelica Jordan APRN URINE ORDERABLES Performing Organization Address City/[facility]/ZIP Co de Phone Number [facility] [place] [address] * (ABNORMAL) Urinalysis with reflex Culture (03/25/2020 10:21 AM EST) Glucose UA Negative Negative mg/dL [facility] Protein UA Negative Negative mg/dL [facility] Bilirubin UA Negative Negative mg/dL [facility] Comment: Clinical correlation required for positive Urine Bilirubin results as false positive may occur with some drugs and drug related products. If a false positive is suspected a serum total bilirubin should be considered if clinically indicated. Urobilinogen UA Normal Normal mg/dL [facility] pH UA 5.5 5.0 - 8.0 [facility] Blood UA Negative Negative mg/dL [facility] Ketones UA >=80(Critic al) Negative mg/dL [facility] Comment: Urinalysis result NOT critical without a combination of Glucose greater than or equal to 500 mg/dL AND Ketones greater than or equal to 80 mg/dL Nitrite UA Negative Negative [facility] Leukocytes UA Trace(A) Negative [facility] Appearance UA Clear Clear [facility] Spec [place] UA 1.016 1.006 - 1.030 [facility] Color UA Yellow Yellow [facility] Culture Reflexed No [facility] Urine specimen obtained via indwelling urinary catheter (specimen) 03/25/2020 10:21 AM EST 03/25/2020 11:31 AM EST Narrative Resulting Agency Comment Spec In Lab Anjelica Jordan APRN URINE ORDERABLES [facility] [place] [address] * POCT Glucose (03/25/2020 7:50 AM EST) POC Glucose 114 65 - 199 mg/dL [facility] Comment: Supplemental ranges: <140 mg/dL before meals <180 mg/dL all other times of the day Blood specimen (specimen) 03/25/2020 7:50 AM EST 03/25/2020 7:50 AM EST Davian Carolina MD POINT OF CARE TEST ORDERABLES Performing Organization Address [facility] Co de Phone Number [facility] [place] [address] * POCT Glucose (03/25/2020 4:06 AM EST) POC Glucose 108 65 - 199 mg/dL [facility] Comment: Supplemental ranges: <140 mg/dL before meals <180 mg/dL all other times of the day Blood specimen (specimen) 03/25/2020 4:06 AM EST 03/25/2020 4:06 AM EST Davian Carolina MD POINT OF CARE TEST ORDERABLES Performing Organization Address [facility] Phone Number [facility] [place] [address] * Amylase Level Body Fluid KHRIS Drain (03/25/2020 3:53 AM EST) Amylase, BF 22 unit/L [facility] Comment: No reference range is available for the specimen type submitted. ??The performance of this assay for the submitted type has not been validated and results should be interpreted accordingly and with regard to the patient's clinical status. Amylase BF Type KHRIS Drain [facility] KHRIS Drain 03/25/2020 3:53 AM EST 03/25/2020 4:14 AM EST Narrative Resulting Agency Comment Spec In Lab Davian Carolina MD BODY FLUIDS AND ST OOLS ORDERABLES Performing Organization Address [facility] [place] [address] * (ABNORMAL) Differential, Automated (03/25/2020 1:55 AM EST) Neutrophils % 82.1 % [facility] Neutr Abs (ANC) 11.43(H) 1.70 - 6.10 x10(3)/[facility] LABORATORY Lymphocytes % 10.1 % [facility] Lymphocytes Abs 1.4 0.9 - 3.2 x10(3)/[facility] LAB[facility] Monocytes % 6.9 % [facility] Monocyte Abs 1.0(H) 0.3 - 0.9 x10(3)/[facility] Eosinophils % 0.3 % [facility] Eosinophils Abs 0.0 0.0 - 0.4 x10(3)/[facility] Basophils % 0.2 % [facility] Basophils Abs 0.0 0.0 - 0.1 x10(3)/[facility] LABOR[facility] Immature Gran % 0.40 % [facility] Comment: Immature granulocytes(IG's)percentage and absolute count will include metamyelocytes, myelocytes, and promyelocytes. Blood smears from CBCs yielding IG's will be scanned manually for concordance. If this scan disagrees with the automated IG or if promyelocytes are noted, a manual differential will be performed. Nory Gran Abs 0.06(H) 0.00 - 0.04 x10(3)/[facility] Blood specimen (specimen) 03/25/2020 1:55 AM EST 03/25/2020 2:04 AM EST Narrative Resulting Agency Comment Spec In Lab Anjelica Jordan [place] [address] * (ABNORMAL) Hemogram (03/25/2020 1:55 AM EST) Pathologist [facility] WBC 13.9(H) 4.0 - 9.5 x10(3)/[facility] LABORATORY RBC 3.65(L) 4.00 - 5.21 x10(6)/[facility] Hemoglobin 11.2(L) 11.7 - 15.5 gm/dL [facility] Hematocrit 33.5(L) 35.7 - 45.8 % [facility] MCV 91.8 82.6 - 94.4 fL [facility] MCH 30.7 27.1 - 32.0 pg [facility] MCHC 33.4 31.7 - 35.0 gm/dL [facility] Platelets 203 145 - 357 x10(3)/[facility] LABORATORY RDWSD 42.5 37.0 - 46.0 [facility] LABORATORY RDWCV 12.7 11.5 - 14.1 % [facility] MPV 9.9 7.6 - 12.9 [facility] LAB[facility]AT[facility] nRBC % Auto 0.0 % [facility] nRBC Abs Auto 0.000 0.000 - 0.000 x10(3)/[facility] Blood specimen (specimen) 03/25/2020 1:55 AM EST 03/25/2020 2:04 AM EST Narrative Resulting Agency Comment Spec In Lab Anjelica Jrodan MEAL COOKER HEMATOLOGY ORDER MAGAN Performing Organization Address City/State/[facility] Co de Phone Number [facility] [place] [address] * (ABNORMAL) Phosphorus (03/25/2020 1:55 AM EST) Phosphorus 1.6(L) 2.5 - 4.5 mg/dL [facility] Blood specimen (specimen) 03/25/2020 1:55 AM EST 03/25/2020 2:04 AM EST Narrative Resulting Agency Comment Spec In Lab Anjelica Jordan MEAL COOKER CHEMISTRY ORDERA BLES Performing Organization Address City/[facility]/ZIP Co de Phone Number [facility] [place] [address] * Magnesium (03/25/2020 1:55 AM EST) Pathologist [facility] Magnesium 0.78 0.69 - 1.07 mmol/L [facility] Blood specimen (specimen) 03/25/2020 1:55 AM EST 03/25/2020 2:04 AM EST Narrative Resulting Agency Comment Spec In Lab Anjelica Jordan MEAL COOKER CHEMISTRY ORDERA BLES Performing Organization Address [facility] Co de Phone Number [facility] [place] [address] * (ABNORMAL) Comprehensive metabolic panel (non-fasting) (03/25/2020 1:55 AM EST) [facility] Glucose Lvl 116 65 - 199 mg/dL [facility] Comment:Diabetes: >=200 mg/d L plus symptoms BUN 10 8 - 18 mg/dL [facility] Creatinine 0.48(L) 0.70 - 1.20 mg/dL [facility] Sodium 138 135 - 145 mmol/L [facility] Potassium 3.9 3.5 - 5.0 mmol/L [facility] Comment: Please note: ??Patients with WBC >100,000 may have falsely elevated Potassium levels. ??For accurate Potassium quantification in these patients send serum separator tube (gold top) for subsequent determinations. ??Contact the Clinical Chemistry Laboratory if there are any questions. Chloride 101 98 - 107 mmol/L [facility] CO2 29 22 - 31 mmol/L [facility] Anion Gap 8 5 - 15 mmol/L [facility] Calcium 8.2(L) 8.5 - 10.5 mg/dL [facility] Total Protein 5.2(L) 6.1 - 8.0 gm/dL [facility] Albumin 3.1(L) 3.2 - 5.2 gm/dL [facility] AST 149(H) 0 - 30 unit/L [facility] ALT 170(H) 0 - 30 unit/L [facility] Alk Phos 58 35 - 105 unit/L [facility] Total Bilirubin 0.6 0.2 - 1.3 mg/dL [facility] Estimated GFR 97 >=60 mL/min/1. 73 m?? [facility] Comment: This patient? s estimated glomerular filtration rate (eGFR) is between 97 mL/min/1.73 m2 (patients with less muscle mass) and 113 mL/min/1.73 m2 (patients with more muscle mass) as determined by the CKD-EPI equation. Assessment of eGFR is not appropriate when creatinine concentrations are rapidly changing. For clinical decisions where creatinine clearance will affect therapy, a 24-hour urine creatinine clearance may be advised. Assignment of CKD stage 1 ? 5 for patients with an eGFR near the transition point between stages may be based on clinical assessment of muscle mass and symptoms in addition to eGFR. Blood specimen (specimen) 03/25/2020 1:55 AM EST 03/25/2020 2:04 AM EST Narrative Resulting Agency Comment Spec In Lab Anjelica Jordan MEAL COOKER CHEMISTRY ORDERA BLES Performing Organization Address [facility] Co de Phone Number [facility] [place] [address] * Amylase (03/25/2020 1:55 AM EST) Amylase 31 28 - 100 unit/L [facility] Blood specimen (specimen) 03/25/2020 1:55 AM EST 03/25/2020 2:04 AM EST Narrative Resulting Agency Comment Spec In Lab Anjelica Jordan MEAL COOKER CHEMISTRY ORDERA BLES Performing Organization Address [facility]/ZIP Co de Phone Number [facility] [place] [address] * POCT Glucose (03/24/2020 11:38 PM EST) POC Glucose 117 65 - 199 mg/dL [facility] Comment: Supplemental ranges: <140 mg/dL before meals <180 mg/dL all other times of the day Blood specimen (specimen) 03/24/2020 11:38 PM EST 03/24/2020 11:38 PM EST Davian Carolina MD POINT OF CARE TEST ORDERABLES Performing Organization Address [facility]/ZIP Co de Phone Number [facility] [place] [address] * POCT Glucose (03/24/2020 8:17 PM EST) Pathologist [facility] POC Glucose 109 65 - 199 mg/dL [facility] Comment: Supplemental ranges: <140 mg/dL before meals <180 mg/dL all other times of the day Blood specimen (specimen) 03/24/2020 8:17 PM EST 03/24/2020 8:17 PM EST Davian Carolina MD POINT OF CARE TEST ORDERABLES Performing Organization Address [facility] Co de Phone Number [facility] [place] [address] * Potassium (03/24/2020 5:40 PM EST) Pathologist [facility] Potassium 4.1 3.5 - 5.0 mmol/L [facility] Comment: Please note: ??Patients with WBC >100,000 may have falsely elevated Potassium levels. ??For accurate Potassium quantification in these patients send serum separator tube (gold top) for subsequent determinations. ??Contact the Clinical Chemistry Laboratory if there are any questions. Blood specimen (specimen) 03/24/2020 5:40 PM EST 03/24/2020 6:02 PM EST Narrative Resulting Agency Comment Spec In Lab Anjelica Jordan APRN CHEMISTRY ORDERA BLES Performing Organization Address City/[facility]/ZIP Co de Phone Number [facility] [place] [address] * (ABNORMAL) Aspartate Aminotransferase (03/24/2020 5:40 PM EST) AST 137(H) 0 - 30 unit/L [facility] Blood specimen (specimen) 03/24/2020 5:40 PM EST 03/24/2020 6:02 PM EST Narrative Resulting Agency Comment Spec In Lab Anjelica Jordan APRN CHEMISTRY ORDERA BLES Performing Organization Address City/[facility] Co de Phone Number [facility] [place] [address] * POCT Glucose (03/24/2020 5:13 PM EST) POC Glucose 112 65 - 199 mg/dL [facility] Comment: Supplemental ranges: <140 mg/dL before meals <180 mg/dL all other times of the day Blood specimen (specimen) 03/24/2020 5:13 PM EST 03/24/2020 5:13 PM EST Davian Carolina MD POINT OF CARE TEST ORDERABLES Performing Organization Address [facility] Co de Phone Number [facility] [place] [address] * Place PICC Line: Contact Vascular Access Page [phone] Extremity to exclude: DO NOT use RIGHT Arm; Is PICC procedure required PRIOR to patients discharge? Yes (03/24/2020 4:54 PM EST) Narrative Byron Branham RN - 03/24/2020 4:54 PM EST Byron Branham RN ? 03/24/2020 ??4:56 PM PICC/Midline Insertion Procedure Note Indications: Access This insertion was not to replace a malfunctioning catheter. This insertion was not due to a suspected line-associated infection. Location of Procedure: X-Ray Room 11 Risks and Benefits: The risks and benefits of this procedure were reviewed and informed consent was obtained obtained. Time Out: Prior to the start of the procedure, the patient's identity, intended procedure, site/side, correct patient positioning and presence of the site dolores was confirmed as applicable. The medical history and chart were reviewed to rule out potential contraindications to the planned procedure. Hand Hygiene: The plate driller did perform hand hygiene prior to line insertion. Catheter type: PICC Lot number: [id number] Procedure Technique: Skin was prepped with chlorhexidine. Skin preparation agent was completely dry at the time of first skin puncture. The following barrier precaution methods were used:large sterile drape, maske/eye shield, large sterile gown, sterile gloves and cap. 3 ml of 1% Lidocaine was used for skin wheal. Ultrasound was used for guidance. ??Radiographic contrast agent was not injected for vein identification. Procedure Details: Order received for catheter placement. A 5 Fr. double lumen Bard Power catheter was placed into the left basilic vein over a 0.018 inch guidewire using modified seldinger technique and fluoroscopy. Arm circumference was 31 cm at 2 cm above the insertion site. Final catheter length (with trimming): 39 cm Internal: 39 cm External: 0 cm Tip in SVC per DR RHODES. The line was not placed over a guidewire. Post Procedure: Diagnosis: IPMN Blood return noted on aspiration of line after placement confirmed. 5 mls of normal saline infused free flowing to gravity via PICC after insertion. Sterile dressing applied: SORBAVIEW AND STATSEAL. Findings: The patient did tolerate the procedure well. No Complications. Procedure Comments: Byron Branham RN 03/24/2020 Davian Carolina MD PROCEDURE/MINOR MUNIZ RGICAL ORDERABLES * XR PICC Placement Over 5 Years with Imaging Guidance (IV Team) (03/24/2020 4:42 PM EST) Anatomical Region Laterality Modality N/A Radio Fluoroscop y Impressions 03/24/2020 4:54 PM EST Left-sided PICC with tip at the lower SVC. Preliminary report signed by: Miki Berry at 03/24/2020 4:48 PM I have personally reviewed the image(s) and the resident's interpretation and agree with the findings, Osmani Rhodes MD at 03/24/2020 4:54 PM Thank you for letting us participate in the care of this patient. For questions regarding this report, please contact the number below. ? Electronically signed by: Osmani Rhodes MD, [facility] ([phone]), at 03/24/2020 4:54 PM Narrative 03/24/2020 4:54 PM EST EXAMINATION: XR PICC PLACEMENT OVER 5 YEARS WITH IMAGING GUIDANCE (IV TEAM) CLINICAL HISTORY: Confirmation of PICC line placement TECHNIQUE: C-arm placement of PICC line. Limited view of the line tip only. COMPARISON: None FINDINGS: Intraprocedural frontal radiograph of the mediastinum demonstrates a left-sided PICC line, with the catheter tip projected at the lower SVC. Procedure Note Osmani Rhodes MD - 03/24/2020 EXAMINATION: XR PICC PLACEMENT OVER 5 YEARS WITH IMAGING GUIDANCE (IVTEAM) CLINICAL HISTORY: Confirmation of PICC line placement TECHNIQUE: C-arm placement of PICC line. Limited view of the line tiponly. COMPARISON: None FINDINGS: Intraprocedural frontal radiograph of the mediastinumdemonstrates a left-sided PICC line, with the catheter tip projected at the lower SVC. IMPRESSION Left-sided PICC with tip at the lower SVC. Preliminary report signed by: Miki Berry at 03/24/2020 4:48 PM I have personally reviewed the image(s) and the resident's interpretationand agree with the findings, Osmani Rhodes MD at 03/24/2020 4:54 PM Thank you for letting us participate in the care of this patient. Forquestions regarding this report, please contact the number below. Electronically signed by: Osmani Rhodes MD, [facility]([phone]), at 03/24/2020 4:54 PM Davian Carolina MD IMG FLUORO ORDERAB LES * POCT Glucose (03/24/2020 1:05 PM EST) [facility] POC Glucose 113 65 - 199 mg/dL [facility] Comment: Supplemental ranges: <140 mg/dL before meals <180 mg/dL all other times of the day Blood specimen (specimen) 03/24/2020 1:05 PM EST 03/24/2020 1:05 PM EST Davian Carolina MD POINT OF CARE TEST ORDERABLES Performing Organization Address City/[facility] Co de Phone Number [facility] [place] [address] * POCT Glucose (03/24/2020 9:28 AM EST) [facility] POC Glucose 155 65 - 199 mg/dL [facility] Comment: Supplemental ranges: <140 mg/dL before meals <180 mg/dL all other times of the day Blood specimen (specimen) 03/24/2020 9:28 AM EST 03/24/2020 9:28 AM EST Davian Carolina MD POINT OF CARE TEST ORDERABLES Performing Organization Address City/[facility] Co de Phone Number [facility] [place] [address] * (ABNORMAL) Differential, Automated (03/24/2020 8:28 AM EST) [facility] Neutrophils % 84.9 % [facility] Neutr Abs (ANC) 13.84(H) 1.70 - 6.10 x10(3)/mc L [facility] Lymphocytes % 6.7 % [facility] Lymphocytes Abs 1.1 0.9 - 3.2 x10(3)/mc L [facility] Monocytes % 7.9 % [facility] Monocyte Abs 1.3(H) 0.3 - 0.9 x10(3)/mc L [facility] Eosinophils % 0.0 % [facility] Eosinophils Abs 0.0 0.0 - 0.4 x10(3)/[facility]ORAT[facility] Basophils % 0.1 % [facility] Basophils Abs 0.0 0.0 - 0.1 x10(3)/mc L [facility] Immature Gran % 0.40 % [facility] Comment: Immature granulocytes(IG's)percentage and absolute count will include metamyelocytes, myelocytes, and promyelocytes. Blood smears from CBCs yielding IG's will be scanned manually for concordance. If this scan disagrees with the automated IG or if promyelocytes are noted, a manual differential will be performed. Nory Gran Abs 0.07(H) 0.00 - 0.04 x10(3)/ L [facility] Blood specimen (specimen) 03/24/2020 8:28 AM EST 03/24/2020 8:55 AM EST Narrative Resulting Agency Comment Spec In Lab Anjelica Jordan APRN HEMATOLOGY ORDER MAGAN Performing Organization Address City/State/[facility] Co de Phone Number [facility] [place] [address] * (ABNORMAL) Hemogram (03/24/2020 8:28 AM EST) WBC 16.3(H) 4.0 - 9.5 x10(3)/[facility]AT[facility] RBC 3.90(L) 4.00 - 5.21 x10(6)/[facility] Hemoglobin 11.7 11.7 - 15.5 gm/dL [facility] Hematocrit 37.0 35.7 - 45.8 % [facility] MCV 94.9(H) 82.6 - 94.4 fL [facility] MCH 30.0 27.1 - 32.0 pg [facility] MCHC 31.6(L) 31.7 - 35.0 gm/dL [facility] Platelets 214 145 - 357 x10(3)/[facility] RDWSD 45.4 37.0 - 46.0 fL [facility] RDWCV 13.1 11.5 - 14.1 % [facility] MPV 11.0 7.6 - 12.9 fL [facility] nRBC % Auto 0.0 % [facility] nRBC Abs Auto 0.000 0.000 - 0.000 x10(3)/mcL [facility] Blood specimen (specimen) 03/24/2020 8:28 AM EST 03/24/2020 8:55 AM EST Narrative Resulting Agency Comment Spec In Lab Anjelica Jordan APRN HEMATOLOGY ORDER MAGAN Performing Organization Address City/[facility]/ZIP Co de Phone Number [facility] [place] [address] * (ABNORMAL) Phosphorus (03/24/2020 8:28 AM EST) Phosphorus 4.6(H) 2.5 - 4.5 mg/dL [facility] Blood specimen (specimen) 03/24/2020 8:28 AM EST 03/24/2020 8:55 AM EST Narrative Resulting Agency Comment Spec In Lab Anjelica Jordan APRN CHEMISTRY ORDERA BLES Performing Organization Address [facility] Co de Phone Number [facility] [place] [address] * Magnesium (03/24/2020 8:28 AM EST) Magnesium 1.07 0.69 - 1.07 mmol/L [facility] Comment:result rechecked-mary lou Blood specimen (specimen) 03/24/2020 8:28 AM EST 03/24/2020 8:55 AM EST Narrative Resulting Agency Comment Spec In Lab Anjelica Jordan MEAL COOKER CHEMISTRY ORDERA BLES Performing Organization Address City/[facility]/ZIP Co de Phone Number [facility] [place] [address] * (ABNORMAL) Amylase (03/24/2020 8:28 AM EST) Amylase 21(L) 28 - 100 unit/L [facility] Blood specimen (specimen) 03/24/2020 8:28 AM EST 03/24/2020 8:55 AM EST Narrative Resulting Agency Comment Spec In Lab Anjelica E Nikki MEAL COOKER CHEMISTRY ORDERA BLES Performing Organization Address City/State/[facility] Co de Phone Number [facility] [place] [address] * (ABNORMAL) CMP w/fasting Glucose (03/24/2020 8:28 AM EST) Glucose Fasting 138(H) 65 - 99 mg/dL [facility] Comment: ?Fasting* Glucose Interpretive Criteria Normal ?65-99 mg/dL Impaired Fasting glucose ?100-125 mg/dL Consistent with Diabetes Mellitus ? >or= 126 mg/dL *Fasting is defined as no caloric intake for at least 8 hours In the absence of unequivocal hyperglycemia a plasma glucose value of >or= 126 mg/dL should be repeated on a subsequent day. Diagnosis and Classification of Diabetes Mellitus, Position Statement from the [employer]. ??Diabetes Care, Volume 33, Supplement 1, Apr 2009 BUN 16 8 - 18 mg/dL [facility] Creatinine 0.77 0.70 - 1.20 mg/dL [facility] Sodium 140 135 - 145 mmol/L [facility] Potassium Not Perf 3.5 - 5.0 [facility] Comment: Unable to quantitate due to sample hemolysis. ??Sample redraw suggested. Called by: MARY LOU, Read back by: Sanjuanita Mercado, Date/Time:03/24/20 09:48. Please note: ??Patients with WBC >100,000 may have falsely elevated Potassium levels. ??For accurate Potassium quantification in these patients send serum separator tube (gold top) for subsequent determinations. ??Contact the Clinical Chemistry Laboratory if there are any questions. Chloride 105 98 - 107 mmol/L [facility] CO2 26 22 - 31 mmol/L [facility] Anion Gap 9 5 - 15 mmol/L [facility] Calcium 8.2(L) 8.5 - 10.5 mg/dL [facility] Total Protein 5.1(L) 6.1 - 8.0 gm/dL [facility] Albumin 3.1(L) 3.2 - 5.2 gm/dL [facility] AST Not Perf 0 - 30 [facility] Comment: Unable to quantitate due to sample hemolysis. ??Sample redraw suggested. Called by: MARY LOU, Read back by: Sanjuanita Mercado, Date/Time:03/24/20 09:48. ALT 168(H) 0 - 30 unit/L [facility] Alk Phos 55 35 - 105 unit/L [facility] Total Bilirubin 0.4 0.2 - 1.3 mg/dL [facility] Estimated GFR 77 >=60 mL/min/1. 73 m?? [facility] Comment: This patient? s estimated glomerular filtration rate (eGFR) is between 77 mL/min/1.73 m2 (patients with less muscle mass) and 89 mL/min/1.73 m2 (patients with more muscle mass) as determined by the CKD-EPI equation. Assessment of eGFR is not appropriate when creatinine concentrations are rapidly changing. For clinical decisions where creatinine clearance will affect therapy, a 24-hour urine creatinine clearance may be advised. Assignment of CKD stage 1 ? 5 for patients with an eGFR near the transition point between stages may be based on clinical assessment of muscle mass and symptoms in addition to eGFR. Blood specimen (specimen) 03/24/2020 8:28 AM EST 03/24/2020 8:55 AM EST Narrative Resulting Agency Comment Spec In Lab Davian Carolina MD CHEMISTRY ORDERABL ES [facility] [place] [address] * Amylase Level Body Fluid KHRIS Drain (03/24/2020 5:07 AM EST) Pathologist [facility] Amylase, BF 26 unit/L [facility] Comment: No reference range is available for the specimen type submitted. ??The performance of this assay for the submitted type has not been validated and results should be interpreted accordingly and with regard to the patient's clinical status. Amylase BF Type KHRIS Drain [facility] KHRIS Drain 03/24/2020 5:07 AM EST 03/24/2020 5:44 AM EST Narrative Resulting Agency Comment Spec In Lab Davian Carolina MD BODY FLUIDS AND ST OOLS ORDERABLES Performing Organization Address [facility]/ZIP Co de Phone Number [facility] [place] [address] * Scan, Peripheral Blood (03/23/2020 6:30 PM EST) Pathologist [facility] Plat Estimate Normal [facility] RBC Morphology Normal [facility] Vacuolated Neut Present [facility] Platelet Clumps Present [facility] Blood specimen (specimen) 03/23/2020 6:30 PM EST 03/23/2020 6:35 PM EST Narrative Resulting Agency Comment Spec In Lab Raj Kang MD HEMATOLOGY ORDERABLE S Performing Organization Address City/[facility]/ZIP Co de Phone Number [facility] [place] [address] * (ABNORMAL) Differential, Automated (03/23/2020 6:30 PM EST) [facility] Neutrophils % 90.8 % [facility] Neutr Abs (ANC) 21.25(H) 1.70 - 6.10 x10(3)/mc L [facility] Lymphocytes % 2.9 % [facility] Lymphocytes Abs 0.7(L) 0.9 - 3.2 x10(3)/mc L [facility] Monocytes % 5.6 % [facility] Monocyte Abs 1.3(H) 0.3 - 0.9 x10(3)/[facility] Eosinophils % 0.0 % [facility] Eosinophils Abs 0.0 0.0 - 0.4 x10(3)/[facility] Basophils % 0.3 % [facility] Basophils Abs 0.1 0.0 - 0.1 x10(3)/[facility] Immature Gran % 0.40 % [facility] Comment: Immature granulocytes(IG's)percentage and absolute count will include metamyelocytes, myelocytes, and promyelocytes. Blood smears from CBCs yielding IG's will be scanned manually for concordance. If this scan disagrees with the automated IG or if promyelocytes are noted, a manual differential will be performed. Nory Gran Abs 0.10(H) 0.00 - 0.04 x10(3)/[facility] Blood specimen (specimen) 03/23/2020 6:30 PM EST 03/23/2020 6:35 PM EST Narrative Resulting Agency Comment Spec In Lab Raj Kang MD HEMATOLOGY ORDERABLE S [facility] [place] [address] * (ABNORMAL) Hemogram (03/23/2020 6:30 PM EST) WBC 23.4(H) 4.0 - 9.5 x10(3)/[facility]ORATORY RBC 4.07 4.00 - 5.21 x10(6)/[facility] Hemoglobin 12.2 11.7 - 15.5 gm/dL [facility] Hematocrit 37.9 35.7 - 45.8 % [facility] MCV 93.1 82.6 - 94.4 fL [facility] MCH 30.0 27.1 - 32.0 pg [facility] MCHC 32.2 31.7 - 35.0 gm/dL [facility] Platelets 275 145 - 357 x10(3)/[facility]ATORY RDWSD 43.7 37.0 - 46.0 [facility] RDWCV 12.7 11.5 - 14.1 % [facility] MPV 9.8 7.6 - 12.9 [facility] nRBC % Auto 0.0 % [facility] nRBC Abs Auto 0.000 0.000 - 0.000 x10(3)/[facility] Blood specimen (specimen) 03/23/2020 6:30 PM EST 03/23/2020 6:35 PM EST Narrative Resulting Agency Comment Spec In Lab Raj Kang MD HEMATOLOGY ORDERABLE S Performing Organization Address City/[facility]/ZIP Co de Phone Number [facility] [place] [address] * (ABNORMAL) Phosphorus (03/23/2020 6:30 PM EST) Phosphorus 5.1(H) 2.5 - 4.5 mg/dL [facility] Blood specimen (specimen) 03/23/2020 6:30 PM EST 03/23/2020 6:35 PM EST Narrative Resulting Agency Comment Spec In Lab Davian Carolina MD CHEMISTRY ORDERABL ES Performing Organization Address [facility] Co de Phone Number [facility] [place] [address] * Magnesium (03/23/2020 6:30 PM EST) Magnesium 0.69 0.69 - 1.07 mmol/L [facility] Blood specimen (specimen) 03/23/2020 6:30 PM EST 03/23/2020 6:35 PM EST Narrative Resulting Agency Comment Spec In Lab Davian Carolina MD CHEMISTRY ORDERABL ES [facility] [place] [address] * (ABNORMAL) Comprehensive metabolic panel (non-fasting) (03/23/2020 6:30 PM EST) Glucose Lvl 217(H) 65 - 199 mg/dL [facility] Comment:Diabetes: >=200 mg/d L plus symptoms BUN 16 8 - 18 mg/dL [facility] Creatinine 0.88 0.70 - 1.20 mg/dL [facility] Sodium 141 135 - 145 mmol/L [facility] Potassium 4.4 3.5 - 5.0 mmol/L [facility] Comment: Please note: ??Patients with WBC >100,000 may have falsely elevated Potassium levels. ??For accurate Potassium quantification in these patients send serum separator tube (gold top) for subsequent determinations. ??Contact the Clinical Chemistry Laboratory if there are any questions. Chloride 106 98 - 107 mmol/L [facility] CO2 24 22 - 31 mmol/L [facility] Anion Gap 11 5 - 15 mmol/L [facility] Calcium 8.1(L) 8.5 - 10.5 mg/dL [facility] Total Protein 5.2(L) 6.1 - 8.0 gm/dL [facility] Albumin 3.5 3.2 - 5.2 gm/dL [facility] AST 161(H) 0 - 30 unit/L [facility] ALT 178(H) 0 - 30 unit/L [facility] Alk Phos 66 35 - 105 unit/L [facility] Total Bilirubin 1.4(H) 0.2 - 1.3 mg/dL [facility] Estimated GFR 65 >=60 mL/min/1. 73 m?? [facility] Comment: This patient? s estimated glomerular filtration rate (eGFR) is between 65 mL/min/1.73 m2 (patients with less muscle mass) and 76 mL/min/1.73 m2 (patients with more muscle mass) as determined by the CKD-EPI equation. Assessment of eGFR is not appropriate when creatinine concentrations are rapidly changing. For clinical decisions where creatinine clearance will affect therapy, a 24-hour urine creatinine clearance may be advised. Assignment of CKD stage 1 ? 5 for patients with an eGFR near the transition point between stages may be based on clinical assessment of muscle mass and symptoms in addition to eGFR. Blood specimen (specimen) 03/23/2020 6:30 PM EST 03/23/2020 6:35 PM EST Narrative Resulting Agency Comment Spec In Lab Davian Carolina MD CHEMISTRY ORDERABL ES Performing Organization Address [facility] Co de Phone Number [facility] [place] [address] * Anaerobic Culture (03/23/2020 1:46 PM EST) Anaerobic Culture No anaerobic organisms isolated [facility] Bile specimen (specimen) 03/23/2020 1:46 PM EST 03/23/2020 2:08 PM EST Comment:BILE CULTURE Narrative Resulting Agency Comment Spec In Lab Davian Carolina MD MICROBIOLOGY - GEN ERAL ORDERABLES Performing Organization Address [facility] Co de Phone Number [facility] [place] [address] * Body Fluid Culture, Aerobic (03/23/2020 1:46 PM EST) Body Fluid Culture No growth [facility] Gram Stain Cytocentrifuge Gram Stain performed Neutrophils seen No microorganisms seen. [facility] Bile specimen (specimen) 03/23/2020 1:46 PM EST 03/23/2020 2:08 PM EST Comment:BILE CULTURE Narrative Resulting Agency Comment Spec In Lab Davian Carolina MD MICROBIOLOGY - GEN ERAL ORDERABLES Performing Organization Address [facility] Co de Phone Number [facility] [place] [address] * Specimen to Pathology (03/23/2020 12:44 PM EST) AP Specimen 03/23/2020 12:4 4 PM EST 03/23/2020 12:44 PM EST Narrative [facility] - 03/23/2020 12:44 PM EST Specimen requisition ordered. ??Separate Pathology report to follow Davian Carolina MD PATHOLOGY/CYTOLOGY ORDERABLES Performing Organization Address [facility] [place] [address] * Specimen to Pathology (03/23/2020 12:39 PM EST) AP Specimen 03/23/2020 12:3 9 PM EST 03/23/2020 12:39 PM EST Narrative [facility] - 03/23/2020 12:39 PM EST Specimen requisition ordered. ??Separate Pathology report to follow Davian Carolina MD PATHOLOGY/CYTOLOGY ORDERABLES Performing Organization Address [facility] de Phone Number [facility] [place] [address] * Specimen to Pathology (03/23/2020 9:54 AM EST) AP Specimen 03/23/2020 9:54 AM EST 03/23/2020 9:54 AM EST Narrative [facility] - 03/23/2020 9:54 AM EST Specimen requisition ordered. ??Separate Pathology report to follow Davian Carolina MD PATHOLOGY/CYTOLOGY ORDERABLES Performing Organization Address [facility] [place] [address] * Surgical Pathology Report (03/23/2020 9:25 AM EST) Surgical Pathology Report [id number] ? Location: 2WST; 0207; A The signing pathologist has (i) examined the relevant preparation(s) for the specimen(s) and (ii) rendered or confirmed the diagnosis(es). . 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 - ??There is no evidence of invasive carcinoma. - Margins are negative for IPMN. C - Common hepatic artery lymph nodes: - Four lymph nodes negative for carcinoma. D - Gallbladder: - ??Gallbladder, negative for diagnostic abnormality. Electronically signed by: ??Hiro Burton MD Verified: ??03/30/2020 ?Pathologist Performed at: ??-[facility] Dept. of Pathology, [place], [place] ADDITIONAL STUDIES Whole slide scan: B6,B10 SPECIMEN(S) SUBMITTED A - portal vein lymph nodes, excision (1) B - Head of pancreas, antrum, duodenum, & omentum, excision (1) ? for frozen section C - common hepatic artery lymph nodes, excision (1) D - Gallbladder, excision (1) CLINICAL INFORMATION IPMN SPECIMEN PROCESSING A - Labeled/Fixative: Portal vein lymph nodes, fresh. Quantity/Size: Single, 2.1 x 1.1 x 0.8 cm. Tissue Description: Adipose tissue with one lymph node, up to 1.0 cm. Sections/Processin g: Entirely submitted in 2 cassettes as follows: ?A1: ??Bisected lymph node ?A2: ??Remaining soft tissue B - Labeled/Fixative: Head of pancreas, antrum, duodenum, and omentum, fresh for frozen section. SPECIMEN DESCRIPTION Resection Specimen: Whipple resection consisting of the head of pancreas, duodenum, distal stomach and attached soft tissue. Integrity: Intact Orientation: Received oriented with the pancreatic neck margin inked yellow, vascular groove margin inked blue, and SMA/uncinate margin inked orange. Overall Size: 25 x 11 x 5 cm LESION ??Location: Head of pancreas ??Size: 2.4 x 2.1 x 2.0 cm ??Description: Induration and mottling of the main pancreatic duct with significant dilation (0.9 cm diameter) ??Relationship to pancreatic duct: Involved ??Relationship to common bile duct: Abuts but does not grossly involve . SPECIMEN PROCESSING ??Extension: Lesion is confined to pancreas. ??Margins: ?? -8 cm from gastric margin. ?? -12 cm from duodenal margin. ?? -0.1 cm from pancreatic neck margin. ?? -1.1 cm from hepatic duct margin. ?? -0.1 cm from vascular groove margin. ?? -0.7 cm from uncinate margin. ?? -0.7 cm from posterior margin. PANCREAS Size: 5.3 x 4.5 x 1.8 cm Parenchyma: The remaining parenchyma is aguilar and lobular with focal congestion Ducts: Distal to the lesion, with no direct communication with the main pancreatic duct is a 0.5 x 0.4 x 0.4 cm unilocular second cystic lesion that is 0.8 cm from the closest margin (SMA/uncinate) STOMACH ??Greater Curvature: 7 cm ??Lesser Curvature: 5 cm ??Serosa: [place]-aguilar and glistening ??Mucosa: Agu[place]-brown and granular with no lesions DUODENUM ??Length/Diameter: 20 x 2.0 cm ??Serosa: [place]-aguilar and glistening ??Mucosa: Aguilar to aguilar-brown and normally folded ??Ampulla of Vater: Pronounced and patent ??Minor papilla: Patent and uninvolved OTHER Lymph nodes: Multiple lymph nodes are identified. Ink Designation: The posterior retroperitoneal margin is inked red. The anterior serosal surface is inked green. Sections/Processin g: The following tissue is submitted for frozen section: Bisected en face pancreatic neck margin. Dealer Development Manager sections in 23 cassettes as follows: ?B1-B2: ??Frozen section remnant, bisected pancreatic neck margin ?B3: ??En face proximal stomach margin ?B4: ??En face distal duodenal margin ?B5: ??En face bile duct margin ?B6-B15: ??Entire lesion submitted sequentially from pancreatic neck margin, to ? include closest red-posterior, blue-vascular groove, orange-SMA/uncinat e margins ?B16: ??Secondary cyst with bile duct, main pancreatic duct, and orange-SMA/uncinat e ? margin ?B17: ??Ampulla ?B18: ??Minor papilla and closest uninvolved anterior serosal/green margin ?B19-B20: ??Intact possible lymph nodes peripancreatic soft tissue ?B21-B23: ??Intact possible lymph nodes, greater and lesser curvature C - Labeled/Fixative: Common hepatic artery lymph nodes, fresh. Quantity/Size: Single, 2.3 x 1.5 x 0.7 cm. Tissue Description: Adipose tissue with two lymph nodes, up to 0.4 cm. Sections/Processin g: Entirely submitted in 2 cassettes as follows: ?C1: ??2 intact lymph nodes ?C2: ??Remaining tissue D - Labeled/Fixative: Gallbladder, fresh. Quantity/Size: ??Single, 9 x 4 x 3.2 cm. Specimen Description: Gallbladder, received intact. Serosa: Glistening Adventitia: Cauterized Lumen contents: Green, viscous, bile. Gallstones: Absent Mucosa: Bile-stained and velvety with no lesions . SPECIMEN PROCESSING Wall: 0.1 cm thick. Duct: 0.3 cm, patent. Ink Designation: The hepatic margin is inked black Sections/Processin g: Dealer Development Manager sections in 1 cassettes as follows: ?D1: ??cystic duct margin and service liaison representative mucosa. ??laura ?Frozen Section FROZEN SECTION DIAGNOSIS _BFS1,2 Pancreatic neck margin: ?Negative for tumor 03/23/20 13:12 Electronically signed by: ??Hiro Burton MD Verified: ??03/23/2020 ?Pathologist Performed at: ??-[facility] Dept. of Pathology, [place], [place] This intraoperative consultation should be interpreted as a preliminary diagnosis pending review of the entire specimen and special studies, if any. [facility] 03/23/2020 9:25 AM EST Davian Carolina MD PATHOLOGY/CYTOLOGY ORDERABLES Performing Organization Address City/[facility]/ZIP Co de Phone Number [facility] [place] [address] * Specimen to Pathology (03/23/2020 9:25 AM EST) AP Specimen 03/23/2020 9:25 AM EST 03/23/2020 9:25 AM EST Narrative [facility] - 03/23/2020 9:25 AM EST Specimen requisition ordered. ??Separate Pathology report to follow Davian Carolina MD PATHOLOGY/CYTOLOGY ORDERABLES Performing Organization Address City/[facility]/ZIP Co de Phone Number [facility] [place] [address] * ABORH Recheck Status (03/23/2020 7:24 AM EST) ABORH Type Recheck Completed [facility] Blood specimen (specimen) 03/23/2020 7:24 AM EST 03/23/2020 7:26 AM EST Narrative Resulting Agency Comment Spec In Lab Davian Carolina MD BLOOD BANK LAB ORD ERABLES Performing Organization Address [facility] Co de Phone Number [facility] [place] [address] * Antibody screen (03/23/2020 7:24 AM EST) Ab Screen Interp Negative [facility] Expires at [id number] on: 03/26/2020 [facility] Blood specimen (specimen) 03/23/2020 7:24 AM EST 03/23/2020 7:26 AM EST Narrative Resulting Agency Comment Spec In Lab Davian Carolina MD BLOOD BANK LAB ORD ERABLES Performing Organization Address City/[facility]/ZIP Co de Phone Number [facility] [place] [address] * ABO/Rh Typing (03/23/2020 7:24 AM EST) ABORH Type A Pos [facility] Blood specimen (specimen) 03/23/2020 7:24 AM EST 03/23/2020 7:26 AM EST Narrative Resulting Agency Comment Spec In Lab Davian Carolina MD BLOOD BANK LAB ORD ERABLES [facility] [place] [address] documented in this encounter Visit Diagnoses Diagnosis IPMN (intraductal papillary mucinous neoplasm)- Primary Neoplasm of unspecified nature of digestive system IPMN (intraductal papillary mucinous neoplasm) Neoplasm of unspecified nature of digestive system Pre-diabetes Other abnormal glucose Pre-diabetes Other abnormal glucose Gastroparesis documented in this encounter Administered Medications Inactive Administered Medications - up to 3 most recent administrations Medication Order MAR Action Action Date Dose Rate Site acetaminophen (Ofirmev) (1000 mg/100 mL) infusion 1,000 mg 1,000 mg, Intravenous, at 400 mL/hr, Administer over 15 Minutes, EVERY 8 HOURS SCHEDULED, 3 doses, First dose (after last modification) on Mon03/23/20 at 2000, Last dose on Mon03/24/20 at 1400, Maximum dose of acetaminophen is 4000 mg from all sources in 24 hours. When ordered for pain, acetaminophen should be given even when other ordered pain medications are indicated. , Routine, Is ketorolac (Toradol) IV contraindicated? No, Can this patient tolerate oral medications or suppositories? No Given 03/24/2020 5:10 AM EST 1,000 mg 400 mL/hr Given 03/23/2020 7:18 PM EST 1,000 mg 400 mL/hr acetaminophen (Ofirmev) (1000 mg/100 mL) infusion 1,000 mg 1,000 mg, Intravenous, at 400 mL/hr, Administer over 15 Minutes, EVERY 8 HOURS SCHEDULED, 5 doses, First dose on Mon04/01/20 at 2200, Last dose on Mon04/03/20 at 0600, Routine, Is ketorolac (Toradol) IV contraindicated? No, Can this patient tolerate oral medications or suppositories? No Given 04/03/2020 5:14 AM EST 1,000 mg 400 mL/hr Given 04/02/2020 9:00 PM EST 1,000 mg 400 mL/hr Given 04/02/2020 1:11 PM EST 1,000 mg 400 mL/hr acetaminophen (Ofirmev) (1000 mg/100 mL) infusion 1,000 mg 1,000 mg, Intravenous, at 400 mL/hr, Administer over 15 Minutes, EVERY 8 HOURS SCHEDULED, 3 doses, First dose (after last reorder) on Mon04/03/20 at 1400, Last dose on Mon04/04/20 at 0600, Routine, Is ketorolac (Toradol) IV contraindicated? No, Can this patient tolerate oral medications or suppositories? No Given 04/04/2020 6:33 AM EST 1,000 mg 400 mL/hr Given 04/03/2020 9:33 PM EST 1,000 mg 400 mL/hr Given 04/03/2020 2:43 PM EST 1,000 mg 400 mL/hr acetaminophen (Tylenol) tablet 1,000 mg 1,000 mg, Oral, EVERY 8 HOURS SCHEDULED, First dose on Mon03/29/20 at 1400, Until Discontinued, Maximum dose of acetaminophen is 4000 mg from all sources in 24 hours. When ordered for pain, acetaminophen should be given even when other ordered pain medications are indicated. , Routine Given 03/30/2020 6:28 AM EST 1,000 m g Given 03/29/2020 9:35 PM EST 1,000 mg Given 03/29/2020 2:49 PM EST 1,000 mg acetaminophen (Tylenol) tablet 1,000 mg 1,000 mg, Oral, EVERY 6 HOURS SCHEDULED, First dose (after last modification) on Mon03/31/20 at 1200, Until Discontinued, Maximum dose of acetaminophen is 4000 mg from all sources in 24 hours. When ordered for pain, acetaminophen should be given even when other ordered pain medications are indicated. , Routine Given 03/31/2020 6:28 PM EST 1,000 mg Given 03/31/2020 12:58 PM EST 1,000 mg acetaminophen (Tylenol) tablet 650 mg 650 mg, Oral, EVERY 6 HOURS SCHEDULED, First dose (after last modification) on Mon03/30/20 at 1200, Until Discontinued, Maximum dose of acetaminophen is 4000 mg from all sources in 24 hours. When ordered for pain, acetaminophen should be given even when other ordered pain medications are indicated. , Routine Given 03/31/2020 6:26 AM EST 650 mg Given 03/31/2020 12:51 AM EST 650 mg Given 03/30/2020 6:01 PM EST 650 mg Adult TPN Central, Intravenous, at 74 mL/hr, CYCLIC, Starting on 04/11/20 at 1800, Until 04/11/20 at 1820, Administer over 18 Hours amino acid 4.25 % in dextrose 5% (Peripheral TPN) (Clinimix 4.25/5) infusion 1000 mL Intravenous, at 90 mL/hr, CONTINUOUS, Starting on Mon04/03/20 at 1200, Until Mon04/03/20 at 1759, Peripheral TPN - No Electrolytes. For 2-in-1 TPN (no lipid): Attach 0.2 micron filter set to primary set prior to infusion. For 2-in-1 TPNs with Y-sited lipids: Attach 1.2 micron filter set below Y-site. For 3-in-1 TPN (Lipid in TPN bag): Attach 1.2 micron filter set to primary set prior to infusion. Warning Vesicant/Irritant Medication New Bag 04/03/2020 11:38 AM EST 90 mL/hr amino acid 4.25% in dextrose 5% with electrolytes (Peripheral TPN) (Clinimix E 4.25/5) infusion 1000 mL Intravenous, at 90 mL/hr, CONTINUOUS, Starting on Pamella 04/02/20 at 1800, Until Mon04/03/20 at 0945, Peripheral TPN with Electrolytes. For 2-in-1 TPN (no lipid): Attach 0.2 micron filter set to primary set prior to infusion. For 2-in-1 TPNs with Y-sited lipids: Attach 1.2 micron filter set below Y-site. For 3-in-1 TPN (Lipid in TPN bag): Attach 1.2 micron filter set to primary set prior to infusion. Warning Vesicant/Irritant Medication New Bag 04/02/2020 6:45 PM EST 90 mL/hr amLODIPine (Norvasc) tablet 5 mg 5 mg, Oral, DAILY, First dose on Mon04/08/20 at 0915, Until Discontinued, Routine Given 04/09/2020 8:56 AM EST 5 mg Given 04/08/2020 10:22 AM EST 5 mg aspirin chewable tablet 81 mg 81 mg, Oral, DAILY, First dose on Mon03/29/20 at 1100, Until Discontinued, Routine Given 04/01/2020 8:12 AM EST 81 mg Given 03/31/2020 8:45 AM EST 81 mg Given 03/30/2020 8:26 AM EST 81 mg bisacodyL (Dulcolax) suppository 10 mg 10 mg, Rectal, ONCE, 1 dose, On Mon03/30/20 at 1745, Routine Given 03/30/2020 6:03 PM EST 10 mg bisacodyL (Dulcolax) suppository 10 mg 10 mg, Rectal, ONCE, 1 dose, On Mon03/31/20 at 1530, Routine Given 03/31/2020 3:21 PM EST 10 mg calcium carbonate (Tums) chewable tablet 1,000 mg 1,000 mg, Oral, ONCE, 1 dose, On Mon03/30/20 at 2100, Routine Given 03/30/2020 9:21 PM EST 1,000 mg calcium carbonate (Tums) chewable tablet 500 mg 500 mg, Oral, DAILY PRN, Starting on Mon03/31/20 at 1026, Until Mon04/02/20 at 0803, Heartburn, Routine Given 03/31/2020 10:54 AM EST 500 mg carvediloL (Coreg) tablet 3.125 mg 3.125 mg, Oral, 2 TIMES DAILY WITH MEALS, First dose on Mon04/09/20 at 1700, Until Discontinued, Routine Given 04/11/2020 8:12 AM EST 3.125 mg Given 04/10/2020 5:42 PM EST 3.125 mg Given 04/10/2020 9:11 AM EST 3.125 mg cefTRIAXone (Rocephin) 1 g vial attach to sodium chloride 0.9% 50 mL Mini-Bag Plus 1 g, Intravenous, EVERY 24 HOURS, 7 doses, First dose on Mon04/03/20 at 1145, Last dose on Mon04/09/20 at 1145, Administer over 30 Minutes, Indication for (Active or Suspected): Pneumonia ([facility]) New Bag 04/09/2020 11:48 AM EST 1 g 100 mL /hr New Bag 04/08/2020 1:20 PM EST 1 g 100 mL/hr New Bag 04/07/2020 12:28 PM EST 1 g 100 mL/hr dextrose 10% infusion 250 mL, at 1,000 mL/hr, Intravenous, EVERY 30 MIN PRN, Starting on Mon03/24/20 at 0752, Until 04/11/20 at 1820, For BG 50-70 mg/dL: Oral treatment preferred:?? If able to drink, give 120 mL Juice or Regular (not diet) soda OR If NPO, give 15 gram glucose 40% oral gel massaged into buccal mucosa OR if unconscious or uncooperative, give 25 gram (250 mL) Dextrose 10% IV over 15 minutes per protocol OR, if no IV access, 1 mg Glucagon IM. For BG less than 50 mg/dL: Oral treatment preferred:?? If able to drink, give 240 mL Juice or Regular (not diet) soda OR If NPO, give 30 gram glucose 40% oral gel massaged in buccal mucosa OR if unconscious or uncooperative, give 25 gram (250 mL) Dextrose 10% IV over 15 minutes per protocol OR, if no IV access, 1 mg Glucagon IM. Recheck BG in 30 minutes. May repeat juice/soda, gel, dextrose or glucagon once per episode. For persistent hypoglycemia, consider longer-acting treatment for the duration of the active insulin. dextrose 5% and sodium chloride 0.45% with potassium chloride 20 mEq infusion 50 mL/hr, Intravenous, CONTINUOUS, Starting on Mon03/25/20 at 0945, Until Mon03/25/20 at 1752, Warning Vesicant/Irritant Medication Rate/Dose Change 03/25/2020 2:02 PM EST 50 mL/hr 50 mL/hr New Bag 03/25/2020 9:38 AM EST 100 mL/hr 100 mL/hr enoxaparin (Lovenox) (40 mg/0.4 mL) subcutaneous injection 40 mg 40 mg, Subcutaneous, NIGHTLY, First dose on Mon03/24/20 at 2100, Until Discontinued, Routine Given 04/10/2020 8:44 PM EST 40 mg Given 04/09/2020 8:20 PM EST 40 mg Given 04/08/2020 8:50 PM EST 40 mg fat emulsion 20% infusion 500 mL, Intravenous, at 10 mL/hr, DAILY, 1 dose, First dose on Pamella 04/02/20 at 1800, fat emulsion 20% to be Y-sited into BASE solution, Routine New Bag 04/02/2020 6:45 PM EST 500 mLs 10 mL/hr furosemide (Lasix) (10 mg/mL) injection 20 mg 20 mg, Intravenous, ONCE, 1 dose, On Mon03/25/20 at 1845 Given 03/25/2020 5:57 PM EST 20 mg glucagon (human recombinant) injection SolR 1 mg 1 mg, Intramuscular, EVERY 30 MIN PRN, Starting on Mon03/24/20 at 0752, Until 04/11/20 at 1820, Low blood sugar, For BG 50-70 mg/dL: Oral treatment preferred:?? If able to drink, give 120 mL Juice or Regular (not diet) soda OR If NPO, give 15 gram glucose 40% oral gel massaged into buccal mucosa OR if unconscious or uncooperative, give 25 gram (250 mL) Dextrose 10% IV over 15 minutes per protocol OR, if no IV access, 1 mg Glucagon IM. For BG less than 50 mg/dL: Oral treatment preferred:?? If able to drink, give 240 mL Juice or Regular (not diet) soda OR If NPO, give 30 gram glucose 40% oral gel massaged in buccal mucosa OR if unconscious or uncooperative, give 25 gram (250 mL) Dextrose 10% IV over 15 minutes per protocol OR, if no IV access, 1 mg Glucagon IM. Recheck BG in 30 minutes. May repeat juice/soda, gel, dextrose or glucagon once per episode. For persistent hypoglycemia, consider longer-acting treatment for the duration of the active insulin., Routine glucose (GLUTOSE) 40% oral geL 15-30 g, Buccal, EVERY 30 MIN PRN, Starting on Mon03/24/20 at 0752, Until 04/11/20 at 1820, Low blood sugar, For BG 50-70 mg/dL: Oral treatment preferred:?? If able to drink, give 120 mL Juice or Regular (not diet) soda OR If NPO, give 15 gram glucose 40% oral gel massaged into buccal mucosa OR if unconscious or uncooperative, give 25 gram (250 mL) Dextrose 10% IV over 15 minutes per protocol OR, if no IV access, 1 mg Glucagon IM. For BG less than 50 mg/dL: Oral treatment preferred:?? If able to drink, give 240 mL Juice or Regular (not diet) soda OR If NPO, give 30 gram glucose 40% oral gel massaged in buccal mucosa OR if unconscious or uncooperative, give 25 gram (250 mL) Dextrose 10% IV over 15 minutes per protocol OR, if no IV access, 1 mg Glucagon IM. Recheck BG in 30 minutes. May repeat juice/soda, gel, dextrose or glucagon once per episode. For persistent hypoglycemia, consider longer-acting treatment for the duration of the active insulin. 1 tube contains 15 grams of glucose (net weight of tube = 37.5 grams., Routine hydrALAZINE (Apresoline) (20 mg/mL) injection 20 mg 20 mg, Intravenous, EVERY 6 HOURS PRN, Starting on Mon04/05/20 at 1620, Until Mon04/06/20 at 1703, High Blood Pressure, SBP goal < 160, Give labetalol first, Routine Given 04/06/2020 4:33 PM EST 20 mg Given 04/05/2020 6:25 PM EST 20 mg hydrALAZINE (Apresoline) (20 mg/mL) injection 5 mg 5 mg, Intravenous, EVERY 6 HOURS PRN, Starting on Mon03/25/20 at 1232, Until Mon03/30/20 at 0840, High Blood Pressure, FOR SBP > 180, HOLD for HR > 100 Given 03/25/2020 1:06 PM EST 5 mg hydroCHLOROthiazide (Hydrodiuril) tablet 25 mg 25 mg, Oral, DAILY, First dose on Mon03/29/20 at 0945, Until Discontinued, Routine Given 04/01/2020 8:12 AM EST 25 mg Given 03/31/2020 8:45 AM EST 25 mg Given 03/30/2020 8:26 AM EST 25 mg HYDROmorphone (Dilaudid) (1 mg/mL) in sodium chloride 0.9% 50 mL FENCE GATE ASSEMBLER infusion Intravenous, FENCE GATE ASSEMBLER ONLY, Starting on Mon03/23/20 at 1815, Until Mon03/29/20 at 0847, Recovery (Recovery-Hospital Unit) New Syringe/Cartridge 03/27/2020 7:21 PM EST 50 mg New Syringe/Cartridge 03/25/2020 6:02 PM EST 50 mg New Syringe/Cartridge 03/23/2020 6:39 PM EST 50 mg HYDROmorphone (Dilaudid) (2 mg/mL) multi-dose injection solution 0.2-0.4 mg 0.2-0.4 mg, Intravenous, EVERY 5 MIN PRN, Starting on Mon03/23/20 at 1717, Until Mon03/23/20 at 2158, Pain, Give 0.2 mg every 5 minutes PRN for mild to moderate pain (1-5) Give 0.4 mg every 5 minutes PRN for moderate to severe pain (6-10). Hold for respiratory rate less than 10 per minute. Maximum dose 4 mg over one hour. If multiple pain medications are ordered, start with hydromorphone or morphine and use fentanyl for breakthrough pain., PACU Recovery, Routine Given 03/23/2020 6:25 PM EST 0.4 mg Given 03/23/2020 6:12 PM EST 0.4 mg Given 03/23/2020 5:51 PM EST 0.4 mg HYDROmorphone (Dilaudid) 0.5 mg/0.5 mL injection 0.2 mg 0.2 mg, Intravenous, EVERY 2 HOURS PRN, Starting on Mon04/01/20 at 1756, Until 04/11/20 at 0814, Pain, Routine Given 04/10/2020 8:41 PM EST 0.2 mg Given 04/10/2020 12:55 AM EST 0.2 mg Given 04/07/2020 10:59 PM EST 0.2 mg HYDROmorphone (Dilaudid) tablet 2 mg 2 mg, Oral, EVERY 6 HOURS PRN, Starting on 04/11/20 at 0814, Until 04/11/20 at 1820, Pain, Routine insulin lispro (HumaLOG) (100 unit/mL) subcutaneous injection vial 1-4 Units 1-4 Units, Subcutaneous, EVERY 4 HOURS SCHEDULED, First dose on Mon03/24/20 at 0845, Until Discontinued, CORRECTION BOLUS [1-4 Units] Sensitive Sliding Scale: Correction factor 40 (1 unit of insulin is expected to drop the glucose 40 mg/dL) BG 160 - 200 Give 1 unit BG 201 - 240 Give 2 units BG 241 - 280 Give 3 units BG greater than 280, give 4 units and recheck BG in 2 hours. - If recheck BG is LESS than 280, give no insulin and resume schedule - If recheck BG is GREATER than 280, give 4 units and repeat BG in 2 hours (no more than 3 times) & call for new insulin orders. DO NOT hold if NPO, unless specifically told to do so. Per Blood Glucose Monitoring Policy, re-check a BG of > 240 in 2 hours., Routine Given 03/29/2020 9:00 AM EST 1 Units Given 03/28/2020 7:42 PM EST 1 Units Given 03/28/2020 4:57 PM EST 1 Units insulin lispro (HumaLOG) (100 unit/mL) subcutaneous injection vial 1-4 Units 1-4 Units, Subcutaneous, 4 TIMES DAILY BEFORE MEALS & NIGHTLY, First dose (after last modification) on [place] 03/29/20 at 1130, Until Discontinued, CORRECTION BOLUS [1-4 Units] Sensitive Sliding Scale: Correction factor 40 (1 unit of insulin is expected to drop the glucose 40 mg/dL) BG 160 - 200 Give 1 unit BG 201 - 240 Give 2 units BG 241 - 280 Give 3 units BG greater than 280, give 4 units and recheck BG in 2 hours. - If recheck BG is LESS than 280, give no insulin and resume schedule - If recheck BG is GREATER than 280, give 4 units and repeat BG in 2 hours (no more than 3 times) & call for new insulin orders. DO NOT hold if NPO, unless specifically told to do so. Per Blood Glucose Monitoring Policy, re-check a BG of > 240 in 2 hours., Routine Given 04/01/2020 8:11 AM EST 1 Units Given 03/31/2020 5:07 PM EST 1 Units Given 03/30/2020 8:26 AM EST 1 Units insulin lispro (HumaLOG) (100 unit/mL) subcutaneous injection vial 1-4 Units 1-4 Units, Subcutaneous, EVERY 6 HOURS SCHEDULED, First dose (after last modification) on [place] 04/02/20 at 1200, Until Discontinued, CORRECTION BOLUS [1-4 Units] Sensitive Sliding Scale: Correction factor 40 (1 unit of insulin is expected to drop the glucose 40 mg/dL) BG 160 - 200 Give 1 unit BG 201 - 240 Give 2 units BG 241 - 280 Give 3 units BG greater than 280, give 4 units and recheck BG in 2 hours. - If recheck BG is LESS than 280, give no insulin and resume schedule - If recheck BG is GREATER than 280, give 4 units and repeat BG in 2 hours (no more than 3 times) & call for new insulin orders. DO NOT hold if NPO, unless specifically told to do so. Per Blood Glucose Monitoring Policy, re-check a BG of > 240 in 2 hours., Routine Given 04/03/2020 5:20 AM EST 1 Units Given 04/02/2020 11:00 PM EST 1 Units insulin lispro (HumaLOG) (100 unit/mL) subcutaneous injection vial 1-4 Units 1-4 Units, Subcutaneous, EVERY 4 HOURS SCHEDULED, First dose (after last modification) on Mon04/03/20 at 1200, Until Discontinued, CORRECTION BOLUS [1-4 Units] Sensitive Sliding Scale: Correction factor 40 (1 unit of insulin is expected to drop the glucose 40 mg/dL) BG 160 - 200 Give 1 unit BG 201 - 240 Give 2 units BG 241 - 280 Give 3 units BG greater than 280, give 4 units and recheck BG in 2 hours. - If recheck BG is LESS than 280, give no insulin and resume schedule - If recheck BG is GREATER than 280, give 4 units and repeat BG in 2 hours (no more than 3 times) & call for new insulin orders. DO NOT hold if NPO, unless specifically told to do so. Per Blood Glucose Monitoring Policy, re-check a BG of > 240 in 2 hours., Routine Given 04/11/2020 8:15 AM EST 1 Units Given 04/11/2020 3:56 AM EST 1 Units Given 04/10/2020 8:57 PM EST 1 Units iohexoL (Omnipaque) (350 mg/mL) injection solution 0-200 mL 0-200 mL, Intravenous, ONCE PRN, 1 dose, Starting on [place] 03/26/20 at 1054, Until [place] 03/26/20 at 1054, Per Protocol, Warning Vesicant/Irritant Medication , Radiology Contrast, Routine Given 03/26/2020 10:54 AM EST 70 mLs iohexoL (Omnipaque) (350 mg/mL) injection solution 0-200 mL 0-200 mL, Intravenous, ONCE PRN, 1 dose, Starting on Mon04/01/20 at 1503, Until Mon04/01/20 at 1503, Per Protocol, Warning Vesicant/Irritant Medication , Radiology Contrast, Routine Given 04/01/2020 3:03 PM EST 66 mLs iohexoL (Omnipaque) (350 mg/mL) injection solution 0-50 mL 0-50 mL, Oral, ONCE PRN, 1 dose, Starting on Mon04/01/20 at 1503, Until Mon04/01/20 at 1503, Per Protocol, Warning Vesicant/Irritant Medication , Radiology Contrast, Routine Given 04/01/2020 3:03 PM EST 50 mLs iohexoL (Omnipaque) radiology oral prep (50 mL of oral contrast) 240 mL, Oral, ONCE, 1 dose, On Mon04/01/20 at 1115, 8 ounce cup = 240 mL of contrast 3 hours before scan as tolerated. The patient should not eat food or drink any other liquids during the entire period in which they are drinking the contrast. Mix 1 bottle (50 mL) of Omnipaque 350 with 1 liter (1,000 mL) non-carbonated beverage (preferably water). Close cover and shake vigorously and then refrigerate, if desired. Dispose of any excess preparation in a sink. Properly dispose of container., Routine Given 04/01/2020 11:15 AM EST 240 mLs iohexoL (Omnipaque) radiology oral prep (50 mL of oral contrast) 240 mL, Oral, ONCE, 1 dose, On Mon04/01/20 at 1145, 8 ounce cup = 240 mL of contrast 2 hours before scan as tolerated. The patient should not eat food or drink any other liquids during the entire period in which they are drinking the contrast. Mix 1 bottle (50 mL) of Omnipaque 350 with 1 liter (1,000 mL) non-carbonated beverage (preferably water). Close cover and shake vigorously and then refrigerate, if desired. Dispose of any excess preparation in a sink. Properly dispose of container., Routine Given 04/01/2020 12:20 PM EST 240 mLs iohexoL (Omnipaque) radiology oral prep (50 mL of oral contrast) 240 mL, Oral, ONCE, 1 dose, On Mon04/01/20 at 1245, 8 ounce cup = 240 mL of contrast 1 hours before scan as tolerated. The patient should not eat food or drink any other liquids during the entire period in which they are drinking the contrast. Mix 1 bottle (50 mL) of Omnipaque 350 with 1 liter (1,000 mL) non-carbonated beverage (preferably water). Close cover and shake vigorously and then refrigerate, if desired. Dispose of any excess preparation in a sink. Properly dispose of container., Routine Given 04/01/2020 12:45 PM EST 240 mLs ipratropium-albuteroL (DUONEB) 0.5 mg-3 mg(2.5 mg base)/3 mL nebulizer solution 3 mL 3 mL, Nebulization, 4 TIMES DAILY PRN, Starting on Mon03/23/20 at 1800, Until 04/11/20 at 1820, Wheezing, Routine Given 04/09/2020 11:50 AM EST 3 mLs Given 04/08/2020 9:48 AM EST 3 mLs Given 04/07/2020 5:04 AM EST 3 mLs ipratropium-albuteroL (DUONEB) 0.5 mg-3 mg(2.5 mg base)/3 mL nebulizer solution 3 mL 3 mL, Nebulization, EVERY 4 HOURS WHILE AWAKE, 3 doses, First dose on Mon04/06/20 at 0930, Last dose on Mon04/06/20 at 1600, Routine Given 04/06/2020 4:00 PM EST 3 mLs Given 04/06/2020 12:39 PM EST 3 mLs ketorolac (Toradol) (15 mg/mL) injection 15 mg 15 mg, Intravenous, EVERY 6 HOURS PRN, Starting on Mon03/29/20 at 1006, Until Tu03/31/20 at 0919, Pain, Routine Given 03/30/2020 9:26 PM EST 15 mg Given 03/30/2020 1:38 PM EST 15 mg Given 03/30/2020 4:08 AM EST 15 mg labetalol (Normodyne) (5 mg/mL) injection solution 10 mg 10 mg, Intravenous, EVERY 6 HOURS PRN, Starting on Mon03/25/20 at 0842, Until Mon03/25/20 at 1402, High Blood Pressure, For SBP > 180, HOLD for HR < 60, Routine Given 03/25/2020 9:14 AM EST 10 mg labetalol (Normodyne) (5 mg/mL) injection solution 10 mg 10 mg, Intravenous, EVERY 2 HOURS PRN, Starting on Mon03/25/20 at 1415, Until 03/29/20 at 0847, High Blood Pressure, For SBP > 180, HOLD for HR < 60, Routine Given 03/29/2020 12:42 AM EST 10 mg Given 03/28/2020 7:49 PM EST 10 mg Given 03/28/2020 8:28 AM EST 10 mg labetaloL (Normodyne) (5 mg/mL) injection solution 10 mg 10 mg, Intravenous, ONCE, 1 dose, On 04/04/20 at 1245, Routine Given 04/04/2020 12:11 PM EST 10 mg labetaloL (Normodyne) (5 mg/mL) injection solution 10 mg 10 mg, Intravenous, EVERY 6 HOURS PRN, 2 doses, Starting on 04/05/20 at 1007, Until 04/05/20 at 1100, High Blood Pressure, for SBP>160, Target systolic blood pressure (SBP) less than 160 mmHg. Administer 10 mg over 2 minutes. May repeat every 15 minutes if SBP remains above goal. If inadequate effect with second 10 mg dose then increase dose to 20 mg for subsequent dosing every 15 minutes. Dose not to exceed 300 mg per day. Hold if pulse is less than 50 beats per minute., Routine Given 04/05/2020 11:00 AM EST 10 mg Given 04/05/2020 10:27 AM EST 10 mg labetaloL (Normodyne) (5 mg/mL) injection solution 10 mg 10 mg, Intravenous, EVERY 6 HOURS PRN, 2 doses, Starting on 04/05/20 at 1618, Until 04/05/20 at 1706, High Blood Pressure, for SBP>160, Target systolic blood pressure (SBP) less than 160 mmHg. Administer 10 mg over 2 minutes. May repeat every 15 minutes if SBP remains above goal. If inadequate effect with second 10 mg dose then increase dose to 20 mg for subsequent dosing every 15 minutes. Dose not to exceed 300 mg per day. Hold if pulse is less than 50 beats per minute., Routine Given 04/05/2020 5:06 PM EST 1 0 mg Given 04/05/2020 4:23 PM EST 10 mg labetaloL (Normodyne) (5 mg/mL) injection solution 10 mg 10 mg, Intravenous, EVERY 6 HOURS PRN, 2 doses, Starting on 04/06/20 at 1703, Until [place] 04/09/20 at 1716, High Blood Pressure, for SBP>170, Target systolic blood pressure (SBP) less than 160 mmHg. Administer 10 mg over 2 minutes. May repeat every 15 minutes if SBP remains above goal. If inadequate effect with second 10 mg dose then increase dose to 20 mg for subsequent dosing every 15 minutes. Dose not to exceed 300 mg per day. Hold if pulse is less than 50 beats per minute., Routine Given 04/09/2020 5:16 PM EST 1 0 mg Given 04/09/2020 5:39 AM EST 10 mg labetalol (Normodyne) (5 mg/mL) injection solution 20 mg 20 mg, Intravenous, EVERY 2 HOURS PRN, Starting on Mon03/29/20 at 0846, Until Mon03/30/20 at 0840, High Blood Pressure, For SBP > 180, HOLD for HR < 60, Routine Given 03/30/2020 1:25 AM EST 20 mg lactated ringers infusion 1,000 mL, at 100 mL/hr, Intravenous, CONTINUOUS, Starting on Mon03/23/20 at 1815, Until Mon03/25/20 at 0850, Recovery (Recovery-Hospital Unit) New Bag 03/24/2020 11:37 PM EST 1,000 mLs 100 m L/hr New Bag 03/24/2020 3:34 PM EST 1,000 mLs 100 mL/hr New Bag 03/24/2020 5:14 AM EST 1,000 mLs 100 mL/hr lidocaine ((GLYDO)) 2 % gel 11 mL 11 mL, INTRA-URETHRAL, ONCE, 1 dose, On Mon04/01/20 at 1700, Routine Given 04/01/2020 4:32 PM EST 11 mLs lidocaine ((GLYDO)) 2 % gel 1 dose, Starting on Mon04/01/20 at 1610, Until Mon04/01/20 at 1632, INEZ LAN.: cabinet override lidocaine (LIDODERM) 5 % patch 1 patch 1 patch, Transdermal, EVERY 24 HOURS, First dose on Mon03/24/20 at 0845, Until Discontinued, Apply patch(es) for 12 hours, and then remove for 12 hours., Routine Patch Applied 03/28/2020 8:50 AM EST 1 patch 13- Abdomen (Left) Patch Applied 03/27/2020 8:49 PM EST 1 patch 08- Back Lower (Right) Patch Applied 03/26/2020 9:17 AM EST 1 patch 08- Back Lower (Right) lidocaine (LIDODERM) 5 % patch 2 patch 2 patch, Transdermal, EVERY 24 HOURS, First dose (after last modification) on Mon03/30/20 at 0900, Until Discontinued, Apply patch(es) for 12 hours, and then remove for 12 hours., Routine Patch Applied 04/05/2020 8:31 AM EST 1 patch 07- Back Lower (Left) Patch Applied 04/03/2020 9:17 AM EST 2 patches 14- Abdomen (Right) Patch Applied 04/02/2020 1:11 PM EST 2 patches 13- Abdomen (Left) lidocaine (LIDODERM) 5 %(700 mg/patch) Patch Removal Transdermal, EVERY 24 HOURS, First dose (after last modification) on 03/29/20 at 2100, Until Discontinued, Remove lidocaine 5 %(700 mg/patch) patch [id number] (Creon 24) 24,000-76,000 -120,000 unit per capsule 1-2 capsule 1-2 capsule, Oral, 3 TIMES DAILY WITH MEALS, First dose on Mon03/30/20 at 0915, Until Discontinued, Patient to self-determine dose based on amount eaten., Routine Given 04/01/2020 8:13 AM EST 1 capsule Given 03/31/2020 5:07 PM EST 1 capsule Given 03/31/2020 12:58 PM EST 1 capsule [id number] (Creon 24) 24,000-76,000 -120,000 unit per capsule 2 capsule 2 capsule, Oral, 3 TIMES DAILY WITH MEALS, First dose on [place] 04/09/20 at 1800, Until Discontinued, Routine Given 04/11/2020 12:05 PM EST 1 capsule Given 04/11/2020 8:12 AM EST 2 capsules Given 04/10/2020 5:39 PM EST 2 capsules magnesium sulfate 2 g in sterile water 50 mL infusion 2 g, Intravenous, ONCE, 1 dose, On 03/24/20 at 0145, Administer over 120 Minutes New Bag 03/24/2020 1:48 AM EST 2 g 25 mL/hr magnesium sulfate 2 g in sterile water 50 mL infusion 2 g, Intravenous, ONCE, 1 dose, On [place] 04/02/20 at 0845, Administer over 120 Minutes New Bag 04/02/2020 9:01 AM EST 2 g 25 mL/hr magnesium sulfate 2 g in sterile water 50 mL infusion 2 g, Intravenous, ONCE, 1 dose, On Mon04/08/20 at 0945, Administer over 120 Minutes New Bag 04/08/2020 10:20 AM EST 2 g 25 mL/hr magnesium sulfate 2 g in sterile water 50 mL infusion 2 g, Intravenous, ONCE, 1 dose, On Mon04/10/20 at 0915, Administer over 120 Minutes New Bag 04/10/2020 9:12 AM EST 2 g 25 mL/hr melatonin tablet 6 mg 6 mg, Oral, NIGHTLY, First dose on Mon04/01/20 at 2100, Until Discontinued, Routine Given 04/01/2020 9:00 PM EST 6 mg metoclopramide (Reglan) (5 mg/mL) injection 10 mg 10 mg, Intravenous, 4 TIMES DAILY BEFORE MEALS & NIGHTLY, First dose on Mon03/31/20 at 1915, Until Discontinued, Doses greater than 10mg should be diluted into 50ml NS. Given 04/01/2020 6:14 AM EST 10 mg Given 03/31/2020 7:27 PM EST 10 mg metoclopramide (Reglan) (5 mg/mL) injection 10 mg 10 mg, Intravenous, EVERY 6 HOURS SCHEDULED, First dose (after last modification) on Mon04/01/20 at 1200, Until Discontinued, Doses greater than 10mg should be diluted into 50ml NS. Given 04/10/2020 5:25 AM EST 10 mg Given 04/10/2020 12:58 AM EST 10 mg Given 04/09/2020 5:16 PM EST 10 mg metoclopramide (Reglan) tablet 10 mg 10 mg, Oral, 4 TIMES DAILY BEFORE MEALS & NIGHTLY, First dose on Mon04/10/20 at 0900, Until Discontinued, Routine Given 04/11/2020 12:05 PM EST 10 mg Given 04/11/2020 8:12 AM EST 10 mg Given 04/10/2020 8:44 PM EST 10 mg metroNIDAZOLE (Flagyl) 500 mg in sodium chloride 0.9% 100 mL infusion 500 mg, Intravenous, EVERY 8 HOURS, 21 doses, First dose on Mon04/03/20 at 1145, Last dose on Mon04/10/20 at 0345, Administer over 30 Minutes, Indication for (Active or Suspected): Anaerobic infection-Respiratory New Bag 04/10/2020 3:09 AM EST 500 mg 200 mL/hr New Bag 04/09/2020 8:20 PM EST 500 mg 200 mL/hr New Bag 04/09/2020 1:31 PM EST 500 mg 200 mL/hr ondansetron (pf) (Zofran) (2 mg/mL) injection 4-8 mg 4-8 mg, Intravenous, EVERY 8 HOURS PRN, Starting on Mon03/24/20 at 0505, Until 04/11/20 at 1820, Nausea, Vomiting, If multiple antiemetics are ordered, use ondansetron first May repeat times one in 30 minutes if ineffective. Given 04/10/2020 8:43 PM EST 4 mg Given 04/10/2020 7:00 PM EST 4 mg Given 04/01/2020 12:54 PM EST 4 mg oxyCODONE (Roxicodone) tablet 5 mg 5 mg, Oral, EVERY 4 HOURS PRN, Starting on Mon03/29/20 at 1007, Until Mon04/01/20 at 0731, Pain, Routine Given 03/31/2020 9:29 PM EST 5 mg Given 03/31/2020 10:33 AM EST 5 mg Given 03/31/2020 2:24 AM EST 5 mg pantoprazole (Protonix) injection 40 mg 40 mg, Intravenous, 2 TIMES DAILY, First dose on Mon03/24/20 at 0900, Until Discontinued, Reconstitute with 10 mL of normal saline to a concentration of 4 mg/mL and infuse slowly over 2 minutes. , Routine Given 03/29/2020 9:37 PM EST 40 mg Given 03/29/2020 9:06 AM EST 40 mg Given 03/28/2020 8:20 PM EST 40 mg pantoprazole (Protonix) injection 40 mg 40 mg, Intravenous, DAILY, First dose on Mon03/23/20 at 1900, Until Discontinued Given 03/23/2020 7:40 PM EST 40 mg pantoprazole (Protonix) injection 40 mg 40 mg, Intravenous, 2 TIMES DAILY, First dose on Mon04/01/20 at 2100, Until Discontinued Given 04/10/2020 8:41 PM EST 40 mg Given 04/10/2020 9:11 AM EST 40 mg Given 04/09/2020 8:20 PM EST 40 mg pantoprazole EC (Protonix) tablet 40 mg 40 mg, Oral, 2 TIMES DAILY, First dose on Mon03/30/20 at 0915, Until Discontinued, DO NOT CRUSH OR OPEN Given 04/01/2020 8:12 AM EST 40 mg Given 03/31/2020 9:29 PM EST 40 mg Given 03/31/2020 8:45 AM EST 40 mg pantoprazole EC (Protonix) tablet 40 mg 40 mg, Oral, 2 TIMES DAILY, First dose (after last modification) on 04/11/20 at 0915, Until Discontinued, DO NOT CRUSH OR OPEN Given 04/11/2020 9:34 AM EST 40 mg phenol 1.4% (CHLORASEPTIC) spray 1 spray 1 spray, Oral, EVERY 2 HOURS PRN, Starting on Mon04/01/20 at 1729, Until Mon04/11/20 at 1820, Irritation, Routine potassium chloride 10 mEq in sterile water 100 mL infusion 10 mEq, Intravenous, EVERY 2 HOURS, 2 doses, First dose (after last reorder) on Mon04/01/20 at 1930, Last dose on Mon04/01/20 at 2130, Administer over 60 Minutes, Warning Vesicant/Irritant Medication New Bag 04/01/2020 8:36 PM EST 10 mEq 100 mL/hr New Bag 04/01/2020 7:46 PM EST 10 mEq 100 mL/hr potassium chloride 10 mEq in sterile water 100 mL infusion 10 mEq, Intravenous, EVERY 2 HOURS, 2 doses, First dose on 04/04/20 at 1115, Last dose on Mon04/04/20 at 1315, Administer over 60 Minutes, Warning Vesicant/Irritant Medication New Bag 04/04/2020 1:24 PM EST 10 mEq 100 mL/hr New Bag 04/04/2020 11:52 AM EST 10 mEq 100 mL/hr potassium chloride 20 mEq in sterile water 100 mL infusion 20 mEq, Intravenous, EVERY 2 HOURS, 2 doses, First dose on [place] 03/26/20 at 0615, Last dose on [place] 03/26/20 at 0815, Administer over 60 Minutes, Give via PICC. Warning Vesicant/Irritant Medication New Bag 03/26/2020 9:18 AM EST 20 mEq 100 mL/hr New Bag 03/26/2020 5:55 AM EST 20 mEq 100 mL/hr potassium chloride 20 mEq in sterile water 100 mL infusion 20 mEq, Intravenous, EVERY 2 HOURS, 2 doses, First dose on Mon04/01/20 at 0830, Last dose on Mon04/01/20 at 1030, Administer over 60 Minutes, Warning Vesicant/Irritant Medication 04/01/2020 11:30 AM EST 20 mEq 100 mL/hr 04/01/2020 9:59 AM EST 20 mEq 100 mL/hr potassium chloride 20 mEq in sterile water 100 mL infusion 20 mEq, Intravenous, ONCE, 1 dose, On Mon04/06/20 at 0900, Administer over 60 Minutes, Warning Vesicant/Irritant Medication 04/06/2020 10:53 AM EST 20 mEq 100 mL/hr potassium phosphate 15 mMol in sodium chloride 0.9% 250 mL 15 mmol, Intravenous, ONCE, 1 dose, On Mon03/25/20 at 0945, Administer over 4 Hours, Administer over 4-6 hours 03/25/2020 11:30 AM EST 15 mmol potassium phosphate 15 mMol in sodium chloride 0.9% 250 mL 15 mmol, Intravenous, ONCE, 1 dose, On Mon03/26/20 at 0615, Administer over 4 Hours, Administer over 4-6 hours [facility] 03/26/2020 5:57 AM EST 15 mmol potassium phosphate 15 mMol in sodium chloride 0.9% 250 mL 15 mmol, Intravenous, ONCE, 1 dose, On [facility] 04/04/20 at 1115, Administer over 4 Hours, Administer over 4-[address] [facility] 04/04/2020 11:52 AM EST 15 mmol senna-docusate (Pericolace) 8.6-50 mg per tablet 1 tablet 1 tablet, Oral, 2 TIMES DAILY, First dose on Mon03/31/20 at 0900, Until Discontinued, Routine Given 03/31/2020 8:45 AM EST 1 tablet senna-docusate (Pericolace) 8.6-50 mg per tablet 2 tablet 2 tablet, Oral, 2 TIMES DAILY, First dose (after last modification) on Mon03/31/20 at 2100, Until Discontinued, Routine Given 04/01/2020 8:12 AM EST 2 tablets Given 03/31/2020 9:30 PM EST 2 tablets sodium chloride 0.9 % (flush) flush 5 mL 5 mL, Intravenous, 2 TIMES DAILY, First dose on Mon03/24/20 at 0900, Until Discontinued, Recovery (Recovery-Hospital Unit), Routine Given 04/11/2020 8:15 AM EST 5 mLs Given 04/10/2020 8:44 PM EST 5 mLs Given 04/10/2020 9:11 AM EST 5 mLs sodium chloride 0.9% 500 mL IV bolus Intravenous, ONCE, 1 dose, On Mon04/01/20 at 2045 New 04/01/2020 8:20 PM EST sodium chloride 0.9% infusion 10 mL/hr, Intravenous, CONTINUOUS, Starting on Mon03/25/20 at 1845, Until Mon03/30/20 at 0823, KVO New 03/26/2020 8:31 PM EST 10 mL/hr 10 mL/hr New 03/25/2020 6:06 PM EST 10 mL/hr 10 mL/hr sodium chloride 0.9% with potassium chloride 20 mEq infusion 100 mL/hr, Intravenous, CONTINUOUS, Starting on Mon04/01/20 at 1845, Until Mon04/03/20 at 1052, Warning Vesicant/Irritant Medication New 04/02/2020 8:28 PM EST 100 mL/hr 100 mL/hr New 04/02/2020 1:10 PM EST 100 mL/hr 100 mL/hr New 04/02/2020 3:32 AM EST 100 mL/hr 100 mL/hr sodium chloride tablet 1 g 1 g, Oral, 3 TIMES DAILY, First dose on Mon04/01/20 at 0615, Until Discontinued, Routine Given 04/01/2020 6:53 AM EST 1 g sodium phosphate 15 mMol in sodium chloride 0.9% 150 mL infusion 15 mmol, Intravenous, ONCE, 1 dose, On Mon04/03/20 at 1145, Administer over 4 Hours, Administer over 4-6 hours New 04/03/2020 2:44 PM EST 15 mmol 37.5 mL/hr TPN Adult Central, Intravenous, at 75 mL/hr, CONTINUOUS, Starting on Mon03/27/20 at 1800, Until Mon03/30/20 at 0805, Administer over 24 Hours New 03/29/2020 7:49 PM EST 75 mL/hr New 03/28/2020 6:58 PM EST 75 mL/hr New 03/27/2020 6:51 PM EST 75 mL/hr TPN Adult Central, Intravenous, at 75 mL/hr, CONTINUOUS, Starting on Mon04/03/20 at 1800, Until Mon04/06/20 at 1759, Administer over 24 Hours New Bag 04/05/2020 6:20 PM EST 75 mL/ hr New Bag 04/04/2020 6:17 PM EST 75 mL/hr New Bag 04/03/2020 6:21 PM EST 75 mL/hr TPN Adult Central, Intravenous, at 55 mL/hr, CONTINUOUS, Starting on Mon04/06/20 at 1800, Until Mon04/07/20 at 1759, Administer over 24 Hours New Bag 04/06/2020 6:24 PM EST 55 mL/ hr TPN Adult Central, Intravenous, at 55 mL/hr, CONTINUOUS, Starting on Mon04/07/20 at 1800, Until Mon04/08/20 at 1759, Administer over 24 Hours New Bag 04/07/2020 7:01 PM EST 55 mL/ hr TPN Adult Central, Intravenous, at 55 mL/hr, CONTINUOUS, Starting on Mon04/08/20 at 1800, Until Mon04/09/20 at 1759, Administer over 24 Hours New Bag 04/08/2020 5:22 PM EST 55 mL/ hr TPN Adult Central, Intravenous, at 55 mL/hr, CONTINUOUS, Starting on Mon04/09/20 at 1800, Until 04/11/20 at 1820, Administer over 24 Hours New Bag 04/10/2020 5:59 PM EST 55 mL/ hr New Bag 04/09/2020 5:30 PM EST 55 mL/hr documented in this encounter Active and Recently Administered Medications Times are shown in EST. Scheduled Medication Order 04/09/2020 04/10/2020 04/11/2020 amLODIPine (Norvasc) tablet 5 mg (CANCELED) 5 mg, Oral, DAILY, First dose on Mon04/08/20 at 0915, Until Discontinued, Routine 0856 (Given - Provider: Wendy Ruiz RN) carvediloL (Coreg) tablet 3.125 mg 3.125 mg, Oral, 2 TIMES DAILY WITH MEALS, First dose on [place] 04/09/20 at 1700, Until Discontinued, Routine 1716 (Given - Provider: Wendy Ruiz RN) 0911 (Given - Provider: Wendy K Joseph, RN)1742 (Given - Provider: Wendy Ruiz RN) 0812 (Given - Provider: Alanna Kaplan RN) cefTRIAXone (Rocephin) 1 g vial attach to sodium chloride 0.9% 50 mL Mini-Bag Plus (COMPLETED) 1 g, Intravenous, EVERY 24 HOURS, 7 doses, First dose on Mon04/03/20 at 1145, Last dose on Mon04/09/20 at 1145, Administer over 30 Minutes, Indication for (Active or Suspected): Pneumonia ([facility]) 1148 (New Bag - Provider: Wendy Ruiz RN)1218 (Stopped - Provider: Wendy Ruiz RN) enoxaparin (Lovenox) (40 mg/0.4 mL) subcutaneous injection 40 mg 40 mg, Subcutaneous, NIGHTLY, First dose on Mon03/24/20 at 2100, Until Discontinued, Routine 2019 (Given - Provider: Amado Carolina RN) 2043 (Given - Provider: Jim Lim RN) insulin lispro (HumaLOG) (100 unit/mL) subcutaneous injection vial 1-4 Units(Linked Group 1) 1-4 Units, Subcutaneous, EVERY 4 HOURS SCHEDULED, First dose (after last modification) on Mon04/03/20 at 1200, Until Discontinued, CORRECTION BOLUS [1-4 Units] Sensitive Sliding Scale: Correction factor 40 (1 unit of insulin is expected to drop the glucose 40 mg/dL) BG 160 - 200 Give 1 unit BG 201 - 240 Give 2 units BG 241 - 280 Give 3 units BG greater than 280, give 4 units and recheck BG in 2 hours. - If recheck BG is LESS than 280, give no insulin and resume schedule - If recheck BG is GREATER than 280, give 4 units and repeat BG in 2 hours (no more than 3 times) & call for new insulin orders. DO NOT hold if NPO, unless specifically told to do so. Per Blood Glucose Monitoring Policy, re-check a BG of > 240 in 2 hours., Routine 005 (Given - Provider: Mervin Grimes RN)0400 (Not Given - Provider: Mervin Grimes RN - Reason: Order parameters not met)0856 (Given - Provider: Wendy Ruiz RN)1329 (Given - Provider: Wendy Ruiz RN)1716 (Given - Provider: Wendy Ruiz RN)2020 (Given - Provider: Amado Carolina RN) 0059 (Given - Provider: Amado Carolina RN)0400 (Not Given - Provider: Amado Carolina RN - Reason: Order parameters not met)0908 (Given - Provider: Wendy Ruiz RN)1325 (Given - Provider: Wendy Ruiz RN)1738 (Given - Provider: Wendy Ruiz RN)2057 (Given - Provider: Jim Lim, LOS) 0000 (Not Given - Provider: Jim Lim RN - Reason: Order parameters not met)0356 (Given - Provider: Jim Lim, RN)0815 (Given - Provider: Alanna Kaplan RN)1200 (Not Given - Provider: Alanna Kaplan RN - Reason: Order parameters not met)1600 (Due) lidocaine (LIDODERM) 5 % patch 2 patch(Linked Group 2) 2 patch, Transdermal, EVERY 24 HOURS, First dose (after last modification) on Mon03/30/20 at 0900, Until Discontinued, Apply patch(es) for 12 hours, and then remove for 12 hours., Routine 0900 (Not Given - Provider: Wendy Ruiz RN - Reason: Patient/family refused) 0900 (Not Given - Provider: Wendy Ruiz RN - Reason: Patient/family refused) 0900 (Not Given - Provider: Alanna Kaplan RN - Reason: Patient/family refused) lidocaine (LIDODERM) 5 %(700 mg/patch) Patch Removal(Linked Group 2) Transdermal, EVERY 24 HOURS, First dose (after last modification) on Mon03/29/20 at 2100, Until Discontinued, Remove lidocaine 5 %(700 mg/patch) patch 2100 (Patch Removed - Provider: Amado Carolina RN) 2100 (Patch Removed - Provider: Jim Lim, LOS) yujdbc-gjoliwmy-zuigzwf DR (Creon 24) 24,000-76,000 -120,000 unit per capsule 2 capsule 2 capsule, Oral, 3 TIMES DAILY WITH MEALS, First dose on Pamella 04/09/20 at 1800, Until Discontinued, Routine 1715 (Given - Provider: Wendy Ruiz RN) 0911 (Given - Provider: Wendy Ruiz RN)1249 (Given - Provider: Wendy Ruiz RN)173 (Given - Provider: Wendy Ruiz RN) 0812 (Given - Provider: Alanna Kaplan RN)1205 (Given - Provider: Alanna Kaplan RN) magnesium sulfate 2 g in sterile water 50 mL infusion (COMPLETED) 2 g, Intravenous, ONCE, 1 dose, On Mon04/10/20 at 0915, Administer over 120 Minutes 0912 (New Bag - Provider: Wendy Ruiz RN)1112 (Stopped - Provider: Wendy Ruiz RN) metoclopramide (Reglan) (5 mg/mL) injection 10 mg (CANCELED) 10 mg, Intravenous, EVERY 6 HOURS SCHEDULED, First dose (after last modification) on Mon04/01/20 at 1200, Until Discontinued, Doses greater than 10mg should be diluted into 50ml NS. 0052 (Given - Provider: Mervin Grimes RN)0520 (Given - Provider: Mervin Grimes RN)1147 (Given - Provider: Wendy Ruiz RN)1716 (Given - Provider: Wendy Ruiz RN) 0058 (Given - Provider: Amado Carolina RN)0525 (Given - Provider: Amado Carolina RN) metoclopramide (Reglan) tablet 10 mg 10 mg, Oral, 4 TIMES DAILY BEFORE MEALS & NIGHTLY, First dose on Mon04/10/20 at 0900, Until Discontinued, Routine 09 (Given - Provider: Wendy Ruiz RN)1249 (Given - Provider: Wendy Ruiz RN)173 (Given - Provider: Wendy Ruiz RN)2044 (Given - Provider: Jim Lim RN) 0812 (Given - Provider: Alanna Kaplan, LOS)1205 (Given - Provider: Alanna Kaplan, LOS) metroNIDAZOLE (Flagyl) 500 mg in sodium chloride 0.9% 100 mL infusion (COMPLETED) 500 mg, Intravenous, EVERY 8 HOURS, 21 doses, First dose on Mon04/03/20 at 1145, Last dose on Mon04/10/20 at 0345, Administer over 30 Minutes, Indication for (Active or Suspected): Anaerobic infection-Respiratory 0513 (New Bag - Provider: Mervin Grimes RN)0543 (Stopped - Provider: Mervin Grimes RN)1331 (New Bag - Provider: Wendy Ruiz RN)1401 (Stopped - Provider: Wendy Ruiz RN)2019 (New Bag - Provider: Amado Carolina RN)2049 (Stopped - Provider: Amado Carolina, RN) 030 (New Bag - Provider: Amado Carolina, RN)033 (Stopped - Provider: Amado Carolina RN) pantoprazole (Protonix) injection 40 mg (CANCELED) 40 mg, Intravenous, 2 TIMES DAILY, First dose on Mon04/01/20 at 2100, Until Discontinued 0856 (Given - Provider: Wendy Ruiz RN)2019 (Given - Provider: Amado Carolina RN) 0911 (Given - Provider: Wendy Ruiz RN)2040 (Given - Provider: Jim Lim, LOS) 0813 (Not Given - Provider: Alanna Kaplan RN - Reason: Medication Discontinued) pantoprazole EC (Protonix) tablet 40 mg 40 mg, Oral, 2 TIMES DAILY, First dose (after last modification) on 04/11/20 at 0915, Until Discontinued, DO NOT CRUSH OR OPEN 0934 (Given - Provider: Alanna Kaplan, LOS) sodium chloride 0.9 % (flush) flush 5 mL 5 mL, Intravenous, 2 TIMES DAILY, First dose on Mon03/24/20 at 0900, Until Discontinued, Recovery (Recovery-Hospital Unit), Routine 0856 (Given - Provider: Wendy Ruiz RN)2020 (Given - Provider: Amado aCrolina RN) 0911 (Given - Provider: Wendy Ruiz RN)2043 (Given - Provider: Jim Lim, LOS) 0815 (Given - Provider: Alanna Kaplan, LOS) Continuous Medication Order 04/09/2020 04/10/2020 04/11/2020 Adult TPN Central, Intravenous, at 74 mL/hr, CYCLIC, Starting on 04/11/20 at 1800, Until 04/11/20 at 1820, Administer over 18 Hours TPN Adult Central, Intravenous, at 55 mL/hr, CONTINUOUS, Starting on Pamella 04/09/20 at 1800, Until 04/11/20 at 1820, Administer over 24 Hours 1730 (New Bag - Provider: Wendy Ruiz RN) 173 (Stopped - Provider: Wendy Ruiz RN)175 (New Bag - Provider: Wendy Ruiz RN) 175 (Due: Stopped - Provider: Wendy Ruiz RN) PRN Medication Order 04/09/2020 04/10/2020 04/11/2020 dextrose 10% infusion(Linked Group 3) 250 mL, at 1,000 mL/hr, Intravenous, EVERY 30 MIN PRN, Starting on 03/24/20 at 0752, Until 04/11/20 at 1820, For BG 50-70 mg/dL: Oral treatment preferred:?? If able to drink, give 120 mL Juice or Regular (not diet) soda OR If NPO, give 15 gram glucose 40% oral gel massaged into buccal mucosa OR if unconscious or uncooperative, give 25 gram (250 mL) Dextrose 10% IV over 15 minutes per protocol OR, if no IV access, 1 mg Glucagon IM. For BG less than 50 mg/dL: Oral treatment preferred:?? If able to drink, give 240 mL Juice or Regular (not diet) soda OR If NPO, give 30 gram glucose 40% oral gel massaged in buccal mucosa OR if unconscious or uncooperative, give 25 gram (250 mL) Dextrose 10% IV over 15 minutes per protocol OR, if no IV access, 1 mg Glucagon IM. Recheck BG in 30 minutes. May repeat juice/soda, gel, dextrose or glucagon once per episode. For persistent hypoglycemia, consider longer-acting treatment for the duration of the active insulin. glucagon (human recombinant) injection SolR 1 mg(Linked Group 3) 1 mg, Intramuscular, EVERY 30 MIN PRN, Starting on e 03/24/20 at 0752, Until 04/11/20 at 1820, Low blood sugar, For BG 50-70 mg/dL: Oral treatment preferred:?? If able to drink, give 120 mL Juice or Regular (not diet) soda OR If NPO, give 15 gram glucose 40% oral gel massaged into buccal mucosa OR if unconscious or uncooperative, give 25 gram (250 mL) Dextrose 10% IV over 15 minutes per protocol OR, if no IV access, 1 mg Glucagon IM. For BG less than 50 mg/dL: Oral treatment preferred:?? If able to drink, give 240 mL Juice or Regular (not diet) soda OR If NPO, give 30 gram glucose 40% oral gel massaged in buccal mucosa OR if unconscious or uncooperative, give 25 gram (250 mL) Dextrose 10% IV over 15 minutes per protocol OR, if no IV access, 1 mg Glucagon IM. Recheck BG in 30 minutes. May repeat juice/soda, gel, dextrose or glucagon once per episode. For persistent hypoglycemia, consider longer-acting treatment for the duration of the active insulin., Routine glucose (GLUTOSE) 40% oral geL(Linked Group 3) 15-30 g, Buccal, EVERY 30 MIN PRN, Starting on Mon03/24/20 at 0752, Until 04/11/20 at 1820, Low blood sugar, For BG 50-70 mg/dL: Oral treatment preferred:?? If able to drink, give 120 mL Juice or Regular (not diet) soda OR If NPO, give 15 gram glucose 40% oral gel massaged into buccal mucosa OR if unconscious or uncooperative, give 25 gram (250 mL) Dextrose 10% IV over 15 minutes per protocol OR, if no IV access, 1 mg Glucagon IM. For BG less than 50 mg/dL: Oral treatment preferred:?? If able to drink, give 240 mL Juice or Regular (not diet) soda OR If NPO, give 30 gram glucose 40% oral gel massaged in buccal mucosa OR if unconscious or uncooperative, give 25 gram (250 mL) Dextrose 10% IV over 15 minutes per protocol OR, if no IV access, 1 mg Glucagon IM. Recheck BG in 30 minutes. May repeat juice/soda, gel, dextrose or glucagon once per episode. For persistent hypoglycemia, consider longer-acting treatment for the duration of the active insulin. 1 tube contains 15 grams of glucose (net weight of tube = 37.5 grams., Routine HYDROmorphone (Dilaudid) 0.5 mg/0.5 mL injection 0.2 mg (CANCELED) 0.2 mg, Intravenous, EVERY 2 HOURS PRN, Starting on Mon04/01/20 at 1756, Until 04/11/20 at 0814, Pain, Routine 0055 (Given - Provider: Josiah Oakley RN)2040 (Given - Provider: Jim Lim RN) HYDROmorphone (Dilaudid) tablet 2 mg 2 mg, Oral, EVERY 6 HOURS PRN, Starting on 04/11/20 at 0814, Until 04/11/20 at 1820, Pain, Routine ipratropium-albuteroL (DUONEB) 0.5 mg-3 mg(2.5 mg base)/3 mL nebulizer solution 3 mL 3 mL, Nebulization, 4 TIMES DAILY PRN, Starting on Mon03/23/20 at 1800, Until 04/11/20 at 1820, Wheezing, Routine 1150 (Given - Provider: Wendy Ruiz, LOS) labetaloL (Normodyne) (5 mg/mL) injection solution 10 mg (COMPLETED) 10 mg, Intravenous, EVERY 6 HOURS PRN, 2 doses, Starting on Mon04/06/20 at 1703, Until Pamella 04/09/20 at 1716, High Blood Pressure, for SBP>170, Target systolic blood pressure (SBP) less than 160 mmHg. Administer 10 mg over 2 minutes. May repeat every 15 minutes if SBP remains above goal. If inadequate effect with second 10 mg dose then increase dose to 20 mg for subsequent dosing every 15 minutes. Dose not to exceed 300 mg per day. Hold if pulse is less than 50 beats per minute., Routine 0539 (Given - Provider: Mervin Grimes RN)1715 (Given - Provider: Wendy Ruiz, LOS) lidocaine (XYLOCAINE) 10 mg/mL (1 %) injection 3 mg 3 mg (0.3 mL), Subcutaneous, ONCE PRN, 1 dose, Starting on Mon03/24/20 at 0505, Until 04/11/20 at 1820, for discomfort with PIV insertion, Recovery (Recovery-Hospital Unit), Routine naloxone (Narcan) (0.4 mg/mL) injection 0.2 mg 0.2 mg, Intravenous, EVERY 1 MIN PRN, Starting on Mon03/24/20 at 0505, Until 04/11/20 at 1820, Opioid Reversal, May repeat every 60 seconds to increase respiratory rate. DO NOT exceed 2 mg total dose. Per FENCE GATE ASSEMBLER order., Recovery (Recovery-Hospital Unit), Routine ondansetron (pf) (Zofran) (2 mg/mL) injection 4-8 mg 4-8 mg, Intravenous, EVERY 8 HOURS PRN, Starting on Mon03/24/20 at 0505, Until 04/11/20 at 1820, Nausea, Vomiting, If multiple antiemetics are ordered, use ondansetron first May repeat times one in 30 minutes if ineffective. 1899 (Given - Provider: Wendy Ruiz, LOS)2042 (Given - Provider: Jim Lim RN) phenol 1.4% (CHLORASEPTIC) spray 1 spray 1 spray, Oral, EVERY 2 HOURS PRN, Starting on Mon04/01/20 at 1729, Until 04/11/20 at 1820, Irritation, Routine sodium chloride 0.9 % (flush) flush 5-20 mL 5-20 mL, Intravenous, EVERY 1 MIN PRN, Starting on Mon03/24/20 at 0505, Until 04/11/20 at 1820, flush, Flush pertains to all indwelling lines. Flush per protocol found in the job aid using the link provided on this medication record., Recovery (Recovery-Hospital Unit), Routine Linked Groups Order Group 1: POCT Fingerstick Glucose (CANCELED) Routine, EVERY 4 HOURS, First occurrence on Mon04/03/20 at 1200, Until Specified, Consider choosing EVERY 4 HOURS as frequency for: - Type 1 Diabetes - At least 24 hours after coming off an insulin drip - At least 24 hours after admission for DKA - Hypoglycemia unawareness - Patients who are otherwise unstable Select the same frequency for the correction bolus insulin order And insulin lispro (HumaLOG) (100 unit/mL) subcutaneous injection vial 1-4 UnitsJump to med 1-4 Units, Subcutaneous, EVERY 4 HOURS SCHEDULED, First dose (after last modification) on Mon04/03/20 at 1200, Until Discontinued, CORRECTION BOLUS [1-4 Units] Sensitive Sliding Scale: Correction factor 40 (1 unit of insulin is expected to drop the glucose 40 mg/dL) BG 160 - 200 Give 1 unit BG 201 - 240 Give 2 units BG 241 - 280 Give 3 units BG greater than 280, give 4 units and recheck BG in 2 hours. - If recheck BG is LESS than 280, give no insulin and resume schedule - If recheck BG is GREATER than 280, give 4 units and repeat BG in 2 hours (no more than 3 times) & call for new insulin orders. DO NOT hold if NPO, unless specifically told to do so. Per Blood Glucose Monitoring Policy, re-check a BG of > 240 in 2 hours., Routine Group 2: lidocaine (LIDODERM) 5 % patch 2 patchJump to med 2 patch, Transdermal, EVERY 24 HOURS, First dose (after last modification) on Mon03/30/20 at 0900, Until Discontinued, Apply patch(es) for 12 hours, and then remove for 12 hours., Routine And lidocaine (LIDODERM) 5 %(700 mg/patch) Patch RemovalJump to med Transdermal, EVERY 24 HOURS, First dose (after last modification) on Mon03/29/20 at 2100, Until Discontinued, Remove lidocaine 5 %(700 mg/patch) patch Group 3: glucose (GLUTOSE) 40% oral geLJump to med 15-30 g, Buccal, EVERY 30 MIN PRN, Starting on Mon03/24/20 at 0752, Until 04/11/20 at 1820, Low blood sugar, For BG 50-70 mg/dL: Oral treatment preferred:?? If able to drink, give 120 mL Juice or Regular (not diet) soda OR If NPO, give 15 gram glucose 40% oral gel massaged into buccal mucosa OR if unconscious or uncooperative, give 25 gram (250 mL) Dextrose 10% IV over 15 minutes per protocol OR, if no IV access, 1 mg Glucagon IM. For BG less than 50 mg/dL: Oral treatment preferred:?? If able to drink, give 240 mL Juice or Regular (not diet) soda OR If NPO, give 30 gram glucose 40% oral gel massaged in buccal mucosa OR if unconscious or uncooperative, give 25 gram (250 mL) Dextrose 10% IV over 15 minutes per protocol OR, if no IV access, 1 mg Glucagon IM. Recheck BG in 30 minutes. May repeat juice/soda, gel, dextrose or glucagon once per episode. For persistent hypoglycemia, consider longer-acting treatment for the duration of the active insulin. 1 tube contains 15 grams of glucose (net weight of tube = 37.5 grams., Routine Or dextrose 10% infusionJump to med 250 mL, at 1,000 mL/hr, Intravenous, EVERY 30 MIN PRN, Starting on Mon03/24/20 at 0752, Until 04/11/20 at 1820, For BG 50-70 mg/dL: Oral treatment preferred:?? If able to drink, give 120 mL Juice or Regular (not diet) soda OR If NPO, give 15 gram glucose 40% oral gel massaged into buccal mucosa OR if unconscious or uncooperative, give 25 gram (250 mL) Dextrose 10% IV over 15 minutes per protocol OR, if no IV access, 1 mg Glucagon IM. For BG less than 50 mg/dL: Oral treatment preferred:?? If able to drink, give 240 mL Juice or Regular (not diet) soda OR If NPO, give 30 gram glucose 40% oral gel massaged in buccal mucosa OR if unconscious or uncooperative, give 25 gram (250 mL) Dextrose 10% IV over 15 minutes per protocol OR, if no IV access, 1 mg Glucagon IM. Recheck BG in 30 minutes. May repeat juice/soda, gel, dextrose or glucagon once per episode. For persistent hypoglycemia, consider longer-acting treatment for the duration of the active insulin. Or glucagon (human recombinant) injection SolR 1 mgJump to med 1 mg, Intramuscular, EVERY 30 MIN PRN, Starting on Mon03/24/20 at 0752, Until 04/11/20 at 1820, Low blood sugar, For BG 50-70 mg/dL: Oral treatment preferred:?? If able to drink, give 120 mL Juice or Regular (not diet) soda OR If NPO, give 15 gram glucose 40% oral gel massaged into buccal mucosa OR if unconscious or uncooperative, give 25 gram (250 mL) Dextrose 10% IV over 15 minutes per protocol OR, if no IV access, 1 mg Glucagon IM. For BG less than 50 mg/dL: Oral treatment preferred:?? If able to drink, give 240 mL Juice or Regular (not diet) soda OR If NPO, give 30 gram glucose 40% oral gel massaged in buccal mucosa OR if unconscious or uncooperative, give 25 gram (250 mL) Dextrose 10% IV over 15 minutes per protocol OR, if no IV access, 1 mg Glucagon IM. Recheck BG in 30 minutes. May repeat juice/soda, gel, dextrose or glucagon once per episode. For persistent hypoglycemia, consider longer-acting treatment for the duration of the active insulin., Routine documented in this encounter Additional Health Concerns Infection Onset Date Last Indicated Resolved Time Rule Out C. difficile 04/08/2020 04/08/20202019 1:19 PM EST Rule Out C. difficile 04/08/2020 04/08/20202019 2:27 PM EST documented as of this encounter Care Teams Bulk Driver Relationship Specialty Start Date End Date Zeny James APRN [address] [place] [address] [address] [facility] [address] [place] [address] PCP - General Family Medicine 09/23/19 documented as of this encounter
--- OUTSIDE RECORDS SUMMARY | 2023-11-02 02:32 | XMS_ITS | Encounter Summary ---
Author Organization [facility] [place] [address] Care Team Providers Care Weapons Electrical Engineering Officer Name Role Phone Zeny James APRN Primary Care Provider Reason for Visit * Reason Onset Date Comments Results 03/31/2020 Encounter Details Date Type Department Care Team (Late st Contact Info) Description 03/31/2020 Telephone Hematology [place] [address] Steph Swartz [facility] HEMATOLOGY/[place] [address] Results Social History Tobacco Use Types Packs/Day Years Used Date Smoking Tobacco: Never Smokeless Tobacco: Never Alcohol Use Standard Drinks/Week Comments Not Currently 0 (1 standard drink = 0.6 oz pur e alcohol) socially, 1-2 wine a month Sex and Gender Information Value Date Recorded Sex Assigned at Not on file Gender Identity Not on file Sexual Orientation Not on file documented as of this encounter Miscellaneous Notes * Telephone Encounter - Steph Swartz [facility] - 03/31/2020 11:34 AM EST This test result was discussed with the patient by phone. A copy of the test results have been scanned in the medical record and sent to Linda. A summary of the results is provided below. Please be advised that [place] law requires that all health care workers respect the confidentiality of this information and not pass it along to other health care providers, insurance companies, or indivi duals without the written permission of the patient. The Familial Cancer Program welcomes any questions about these matters. Our phone number is: [phone]. On 03/19/2020, Linda underwent genetic testing for the known CHEK2 mutation in her sister and a hereditary predisposition to common hereditary cancers, including breast, gynecologic and gastrointestinal. Following are the results of this test. 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 The following 47 genes were analyzed: APC, ZAIDA, AXIN2, BARD1, BMPR1A, BRCA1, BRCA2, BRIP1, CDH1, CDK4, CDKN2A, CHEK2, CTNNA1, DICER1,EPCAM, GREM1, HOXB13, KIT, MEN1, MLH1, MSH2, MSH3, MSH6, MUTYH, NBN, NF1, NTHL1, PALB2, PDGFRA, PMS2, POLD1, POLE, PTEN, RAD50, RAD51C, RAD51D, SDHA, SDHB, SDHC, SDHD, SMAD4, SMARCA4, STK11, TP53, TSC1, TSC2, and VHL. No other mutations were detected. Interpretation: The most significant consequences of carrying a mutated copy of CHEK2 are increased risks for breast and colon cancer. For a female carrier who has not had cancer, lifetime risk of breast cancer is approximately 25-39%, compared to a 12% lifetime risk for the general female [place] population. Lifetime risk of male breast cancer is also increased to 0.4%-1% compared to a 0.1% lifetime risk for the general [place] male population. Estimates of cancer risk for men and women with CHEK2 mutations vary widelyand are strongly influenced by family history. In cases where there is no family history of one of these cancers, the risk for a patient with a CHEK2 mutation may be lower than in cases where that cancer has been diagnosed in one or more close relatives. Therefore, the family history of a patient should be considered when deciding on the most appropriate strategies to manage cancer risk, with more aggressive strategies targeted to patients with significant family histories of related cancers. Information about the cancer risks associated with CHEK2 mutations is relatively new and still evolving. Some studies have described a possible increased risk for a wide range of cancers in patients with CHEK2 mutations, including prostate, thyroid and kidney cancer. However, these studies are not conclusive and there are currently no medical management guidelines to address these possible risks. It is important to keep in mind that not all individuals who inherit a mutation in the CHEK2 gene will develop cancer. The specific mutation found in Linda is considered a low penetrance mutation meaning that the risk for developing cancer is less than that described above. The risk for breast and colorectal cancers is only slightly increased compared to the general population. It is likely that this mutation was a factor in Linda and her sister's breast cancers. Mutations in CHEK2 are not known to be associated with an increased risk for pancreatic cancer. Linda is currently an in-patient following her whipple procedure. She shared that she has not yet learned results of the pathology study so does not yet know whether she has pancreatic cancer. No mutations were detected in any genes related to pancreatic cancer. Risks for other family members ??? Linda does not have any biologic children. ??? Linda's brother has a 50% chance of having inherited the altered gene and should consider testing. ??? Based on the family history, it is not clear which side of the family this was likely inheritedfrom. We would suggest that relatives on both sides of the family be informed about this finding sothey can consider having testing. We are happy to see family members here for genetic counseling and testing. Our scheduling alumnae secretary can be reached at [phone]. Family members can also go to the website of the National Society of Genetic Counselors at www.nsgc.org in order to find a counselor in their area. Screening recommendations taking current NCCN Guidelines and family history into account: We discussed the option of scheduling a follow-up appointment with Dr. Dueñas to discuss these recommendations in more detail. Given that this is a low penetrance gene and does not significantly change her current medical management, Linda did not feel a need for a follow-up appointment at this time. Breast cancer screening ?? Having undergone a bilateral mastectomy, there is no established breast cancer screening recommended. Colon cancer screening ?? Colonoscopy screening every 5 years, starting at age 40 or as recommended by Linda's engraver steel plate. Ovarian cancer screening ??? No special screening studies in addition to an annual CUTTER FINISHER exam are indicated Skin cancer screening ??? Periodic skin exams Finally, it can be difficult for people to predict how they will react to learning about the presence of an altered gene in their families and in themselves. A variety of feelings may occur after learning that one carries a gene alteration. Some individuals experience a sense of relief from knowingand understanding the underlying cause of the cancers in the family or from knowing their personal cancer risk and gene status. Testing may bring up feelings about other relatives who had cancer. It is not uncommon to experience an increase in anxiety, sleeplessness or depression, as a result of worries about one???s current and future health. One may also worry that other family members might have inherited the altered gene. For some, a consultation with a psychologist, social work associate, or psychiatrist may be helpful in dealing with feelings that may arise from genetic testing. If Linda wouldlike a referral, we can help and recommend a therapist who is familiar with issues surrounding genetic conditions. documented in this encounter Plan of Treatment Upcoming Encounters Date Type Department Care Team (Late st Contact Info) Description 11/02/2023 1:00 PM EDT Office Visit Hematology/Oncology at [address] [phone] Mary Nails APRN [address] [place] [address] MEDICAL ONCOLOGY [place], [place] [id number] 11/02/2023 1:30 PM EDT Infusion Hematology Oncology at [address] [phone] documented as of this encounter Visit Diagnoses Not on filedocumented in this encounter Care Teams Weapons Electrical Engineering Officer Relationship Specialty Start Date End Date Zeny Jaems APRN [address] [place], [place] [address] PCP - General Family Medicine 09/23/19 documented as of this encounter
--- OUTSIDE RECORDS SUMMARY | 2023-11-02 02:32 | XMS_ITS | Encounter Summary ---
Author Organization [facility] Address [facility] [place] [address] Care Team Providers Care Metal Framer Name Role Phone Zeny James APRN Primary Care Provider Reason for Visit * Auth/Cert Specialty Diagnoses / Procedures Referred By Nir t Referred To Contact Diagnoses IPMN Procedures PRO PART REMV PANC, PROX+PART DUOD+ANAST @PANCREATECTOMY, WHIPPLE TYPE WITH PANCREATOJEJUNOSTOMY (WRVU 52.79) MODIFIER ROBOT,DAVINCI XI Referral ID Status Reason Start Date Expiration Date Visits Re quested Visits Authorized [id number] 1 1 Encounter Details Date Type Department Care Team (Late st Contact Info) Description 04/02/2020 2:55 PM EST - 04/02/2020 3:25 PM EST Surgery Gastroenterology at [facility] [place] [address] Ralf Urrutia MD [facility] Dr [address] [place] [address] EGD, UPPER GI ENDOSCOPY (WRVU 2.09) Social History Tobacco Use Types Packs/Day Years [...] Sign Reading Time Taken Comments Blood Pressure 217/65 04/02/2020 2:22 PM EST Pulse 86 04/02/2020 2:16 PM EST Temperature 37.4 ??C (99.3 ??F) 04/02/2020 2:16 PM ES T Respiratory Rate 16 04/02/2020 2:16 PM EST Oxygen Saturation 95% 04/02/2020 2:16 PM EST Inhaled Oxygen Concentration - - [...] Abel is a 74 year woman from [place], [place]. She [facility] ED on 2019 with epigastric abdominal pain [...] of pancreatic duct/cyst fluid cytopathology per Acc# [id number] showed neoplastic Cells Present. Abundant macrophages, mixed leukocytes present and a single group of bland-appearing columnar cells. ??Cell block was examined. Note: The fluid CEA level is consistent with neoplastic process. ?? 11/25/2019 surgical oncology consult. Maricruz was seen for surgery consultation. She was by herself. She described the episode that brought her to the ED at [facility] as the first time she is [...] ROBOT,DAVINCI XI @OMENTAL FLAP, INTRA-ABDOMINAL (WRVU 6.54) Operative [...] post-operative day 19. Hospital Course: POD 0 12: To OR [...] Vol (ml) 03/24, POD 1 26 170 03/25, POD 2 22 200 03/26, POD 3 15 320 03/27, POD 4 327 250 03/28, POD 5 12 80 ?? Pending Lab [...] to: Home VNA: Yes Name of facility: [facility]. Contact information: PHONE: [phone] Discharge Conditions/Prognosis: Stable Discharge Medications: The following [...] medications with new dosing Dose Details * fmlbje-jmdqtpgu-jbkiuns DR 24,000-76,000 -120,000 unit Cpdr Commonly known as: Creon Take 1-2 capsules by mouth 3 times daily (with meals). With Meals: Take 1-2 capsules by mouth. WithSnacks: Take 1 capsule by mouth. What changed: See the new instructions. 1-2 capsule Quantity: 270 capsule Refills: 3 * xrndte-xckemupx-yqzhzjn DR 24,000-76,000 -120,000 unit Cpdr Commonly known [...] [place] 04/21/2020 2:30 PM Davian Carolina MD [facility] SURG [facility] 04/21/2020 2:[address] [facility] Outpatient Services/Studies: CBC (with Diff) Standing Status: [...] AND/OR HOSPICE SERVICES) PATIENT'S LOCATION: Linda Abel [address] [place] [id number] [place] [phone] Scarrer's Name: self In discussion with the attending physician, it is certified that this patient is under their care and that they, or a Nurse Practitioner,Clinical Nurse specialist or Physician Crystal Growing Technician who is working directly with them, had [...] andblood sugar monitoring. HOME HEALTH CARE AGENCY: [facility] PHONE: [phone] FAX: [phone] Start of care: 24-48hrs after discharge FOR [...] obtained from this patient's PCP: Zeny James, FIELD PROFESSIONAL [address] [facility] / [facility] [id number] All VNA agencies which cover the area of patient's residence have been reviewed, either verbally kehinde writing, and patient/family have chosen the home health care agency noted Question Response Notes Agency name and contact information [facility] Patient location post discharge Home What services are requested Registered Nurse Start date 04/01/2020 Responsible MD post discharge contact info PCP and Dr. Carolina Referral for Home TPN Order Comments: Adult Home TPN Orders: Home infusion company: Linda Abel [address] [place] [address] DAVIAN CAROLINA Diagnosis requiring TPN: IPMN Diabetic: [...] Question Response Notes Vendor / contact information [facility] Patient location post discharge home Service requested TPN Instructions Given to Patient at Discharge:. An After Visit Summary was printed and given to the patient. Patient Instructions [facility] of General Surgery Discharge Instructions CALL YOUR [...] with the Surgery nurses. The number is [phone]. - During the night or weekends call the [facility] electric melt operator at [phone] and ask to speak to the surgery resident contract mail carrier for general surgery. Please note: Your surgeon may not be Event Planning Intern, especially during the night or on weekends, so be ready to describe yourself and your surgery when you call. Follow up appointments: Future Appointments Date Time Provider Department Center 04/21/2020 1:30 PM LAB, THREE L Lab 3L [place] 04/21/2020 2:30 PM Davian Carolina MD [facility] SUR[facility] 04/21/2020 2:[address] [facility] SUR[facility] [x] Follow-up appointment with General Surgery has already been scheduled [] A request for a follow-up appointment has been made and you should receive information via phone/mail in the next week. If you do not hear anything, please call the clinic at [phone] to confirm or reschedule. - A follow-up [...] please call the General Surgery Clinic nurses [phone] for prior authorizations assistance General Instructions Upper [...] the day after the procedure, use an ekft-ftg-ujlaqoh spray to numb your throat. Sucking on [...] occurs, please contact your Doctor. Please call [phone] before 8pm Mon-Fri with problems, questions or concerns. If you call after 8pm or on weekends, call the Hospital at [phone] and ask to speak to the Phlebotomy Coordinator contract mail carrier and the electric melt operator will contact that person for you. When should you call for help? Call 360 anytime you think you may need emergency [...] any problems. Where can you learn more? [facility] View your After Visit Summary and more online at [email or web address] If you would like to provide feedback about your hospital experience, please call the Office of Patient and Family Relations at . If you have received this After Visit Summary in error, please immediately return it in person to the department, or notify the [facility] Privacy Office by calling toll free at between the hours of 8AM and 5PM to arrange for our retrieval of the documents at no cost to you. Content Version: 12.2 ?? 5978-0166 [employer]. Care instructions adapted under license by [facility]. If you have questions about a medical condition or this instruction, always ask your healthcare professional. [employer] disclaims any warranty or liability for your [...] questions you can call our clinic at [phone] Treatment of Low Blood Sugar (Hypoglycemia) If your BG is lower than 80, you are likely to feel shaky, sweaty and lightheaded. This is a signalthat your body needs more sugar. Quickly eat or drink a small serving of something sweet, such as: 4 ounces fruit juice or regular (not diet) soda 6 [employer] small box of raisins 4 glucose tablets [...] Zeny James APRN Signed: Larry Longo MD [facility] Surgical Oncology Service Team Pager #[phone] 04/11/2020 6:07 PM documented in this encounter [...] the day after the procedure, use an skkp-nxz-tqverwe spray to numb your throat. Sucking on [...] occurs, please contact your Doctor. Please call [phone] before 8pm Mon-Fri with problems, questions or concerns. If you call after 8pm or on weekends, call the Hospital at [phone] and ask to speak to the Phlebotomy Coordinator contract mail carrier and the electric melt operator will contact that person for you. When should you call for help? Call 911 anytime you think you may need emergency [...] any problems. Where can you learn more? [facility] View your After Visit Summary and more online at [email or web address] If you would like to provide feedback about your hospital experience, please call the Office of Patient and Family Relations at . If you have received this After Visit Summary in error, please immediately return it in person to the department, or notify the [facility] Privacy Office by calling toll free at between the hours of 8AM and 5PM to arrange for our retrieval of the documents at no cost to you. Content Version: 12.2 ?? 7260-1910 [employer]. Care instructions adapted under license by [facility]. If you have questions about a medical condition or this instruction, always ask your healthcare professional. [employer] disclaims any warranty or liability for your [...] questions you can call our clinic at [phone] Treatment of Low Blood Sugar (Hypoglycemia) If [...] Longo MD - 03/25/2020 2:04 PM EST [facility] Department of General Surgery Discharge Instructions CALL [...] day, it is best to call the General Surgery Clinic to speak with the Surgery nurses. The number is [phone]. - During the night or weekends call the [facility] electric melt operator at [phone] and ask to speak to the surgery resident contract mail carrier for general surgery. Please note: Your surgeon may not be Event Planning Intern, especially during the night or on weekends, so be ready to describe yourself and your surgery when you call. Follow up appointments: Future Appointments Date Time Provider Department Center 04/21/2020 1:30 PM LAB, THREE L Lab 3L [place] 04/21/2020 2:30 PM Davian Carolina MD [facility] SURG [facility] 04/21/2020 2:[address] [facility] SUR[facility] [x] Follow-up appointment with General Surgery has already been scheduled [] A request for a follow-up appointment has been made and you should receive information via phone/mail in the next week. If you do not hear anything, please call the clinic at [phone] to confirm or reschedule. - A follow-up [...] please call the General Surgery Clinic nurses [phone] for prior authorizations assistance documented in this encounter Medications at Time of Discharge Medication Sig Dispensed Refills Start Date End Date Blood-Glucose Meter Misc 1 Application by Mis.(Non-Drug; Combo Route) route [...] Capsule Take 1 g by mouth daily. jpazvm-qcuqvuju-hpyk ase DR (Creon 24) 24,000-76,000 -120,000 unit [...] gauge x 5/16 Syringe 1 each by [facility].(Non-Drug; Combo Route) route nightly. 30 Syringe 11 04/11/2020 05/19/2020 lancets 33 gauge Misc 1 each by Misc.(Non-Drug; Combo Route) route 3 times daily (before meals). 100 each 11 04/11/2020 05/19/2020 novoLIN R Solution Add 8 units to TPN bag every night 10 mL 12 04/11/2020 05/19/2020 ymnnyu-inqyialv-lblk ase DR (Creon) 24,000-76,000 -120,000 unit Capsule, Delayed Release(E.C.) Take 1-2 capsules by mouth 3 times daily (with meals). With Meals: Take 1-2 capsules by mouth. With Snacks: Take 1 capsule by mouth. 270 capsule 3 03/31/2020 09/07/2020 CALCIUM CARBONATE-VITAMIN D3 ORAL Take 1 tablet by mouth daily. 01/19/2023 fluticasone propionate (FLONASE) 50 mcg/actuation [place], Suspension 1 spray by Each Nare route [...] sent electronically to pt's home pharmacy.Patient left [facility] in a wheelchair accompanied by 2 [facility] staff. * Victoria Calle RN - 04/11/2020 10:13 AM EST MORGAN liagino, Willem and care team (, RD) working on arranging home DC today with TPN and with [facility] administrator to assist. Orders updated. [facility] liaison coordinating. Noé Azevedo to transport home and assist at DC. Victoria Calle RN Pager [phone] * Lora Berg, RD - 04/11/2020 10:00 AM EST Nutrition [...] to discuss plan with provider Team pager #[phone]. Nutrition Support: TPN Formula for Discharge (Show up to 1 orders; newest on the left.) Start date and time 04/11/2020 1800 Adult TPN [[id number]] Order Status Active Macro Ingredients amino acid 15% no.5 (ClinisoL) 110 g dextrose 70% 118 g Electrolytes sodium phosphate 48 mmol potassium chloride 100 mEq sodium chloride 210 mEq Additives trace elements Zn-Cu-Mn-Se 1 mL ascorbic acid (vitamin C) 100 mg Vit E7-L4-N2-B5-B6 (B Complex) 1 mL zinc sulfate 10 [...] 1800 04/09/2020 1800 04/08/2020 1800 Adult TPN [[id number]] TPN Adult [[id number]] TPN Adult [[id number]] Order Status Active Active Last Admin New Bag at 04/10/2020 1759 by Wendy Ruiz RN New Bag at 04/08/2020 1722 by Inez Lan RN Medications insulin regular human 8 Units 8 Units 8 Units Additives trace elements Zn-Cu-Mn-Se 1 mL 1 mL 1 mL ascorbic acid (vitamin C) 100 mg 100 mg 100 mg Vit V6-I5-Y8-B5-B6 (B Complex) 1 mL 1 mL 1 [...] encounter: 53.3 kg (117 lb 9.6 oz). [place] Body Weight: 50-55 kg Usual Body Weight: [...] (NFPE): Not performed Protein-calorie Malnutrition: Not identified (CHRIS Fierro J Parenteral Enteral Nutr. 2011; 36(3): 273-83) Nutrition to continue to follow up while inpatient. LORA BERG RD Pager #:[phone] * Larry Longo MD - 04/11/2020 8:18 AM EST Surgical Oncology Inpatient Progress Note Patient Name: Linda MERAZ; Age: 6 1945; 74 y.o. Room/Bed: [address] [place] [address] Today's Date: 04/11/20 ID: Linda Abel is [...] areas of demarcation. Hospital Course: POD 0 03/23: To OR [...] (117 lb 9.6 oz) Labs: Recent Labs 04/11/20 0535 04/10/204 04/09/20 0030 WBC 13.2* 13.1* 13.5* HGB 9.7* 9.6* 10.1* HCT 29.4* 28.6* 30.4* PLATELET 371* 429* 426* Recent Labs 04/11/20 0535 04/10/20313 04/09/20 0030 NA 130* 131* 133* K 4.3 3.9 3.9 CL 99 100 102 CO2 24 23 BUN 15 16 15 CREATININE 0.34* 0.35* 0.31* GLUCOSE 165 156 157 CALCIUM 7.7* 7.6* 7.7* MAGNESIUM 0.69 0.64* 0.78 PHOS 3.4 3.4 2.7 LFT's No results found for: ALKPHOS, AST, ALBUMIN, BILIDIR, BILITOT, ALT, PROT KHRIS Amylase: 03/24: 12: 22 03/26: 15 03/27: 327 03/28: 12 [...] Longo MD Surgical Oncology Service Team Pager #[phone] 04/11/20 8:18 AM * Larry Longo MD - 04/10/2020 7:59 AM EST Surgical Oncology Inpatient Progress Note Patient Name: Linda MERAZ; Age: 6 1945; 74 y.o. Room/Bed: [address] [place] [address] Today's Date: 04/10/20 ID: Linda Abel is [...] 28.6* PLATELET 429* 426* 477* Recent Labs 04/10/2031304/09/20 0030 04/08/20 0030 NA 131* 133* 132* K 3.9 3.9 3.5 CL 100 102 101 CO2 24 23 24 BUN 16 15 15 CREATININE 0.35* 0.31* 0.29* GLUCOSE 156 157 147 CALCIUM 7.6* 7.7* 7.7* MAGNESIUM 0.64* 0.78 0.69 PHOS 3.4 2.7 3.1 LFT's No results found for: ALKPHOS, AST, ALBUMIN, BILIDIR, BILITOT, ALT, PROT KHRIS Amylase: 03/24: 26 129: 22 1210: 15 03/27: 327 03/28: 12 Micro: Bile [...] DM mgmt - Rewire PICC today to [facility] for discharge with TPN - Possible advance [...] Longo MD Surgical Oncology Service Team Pager #[phone] 04/10/20 7:59 AM * Duke Tidwell - 04/09/2020 3:32 PM EST Performance Reporter Encounter Note Patient Name: Linda Abel : [id number] MR#: [id number] Admit Date: 03/23/2020 5:51 AM Hospital Day 17 days Narrative: Follow-up visit for continued assessment and support. Pt was sleeping and I will visit an other time. Assessment: Intervention and Outcome: Follow-up: Time in Direct Care: Duke Tidwell 04/09/2020 * Alesha Casillas RN - 04/09/2020 12:54 PM EST OFFICE OF CARE MANAGEMENT Insurance Inspector Follow-up Note Alesha Casillas RN reviewed record and discussed patient with Care Team. Patient plan of care discussed in multidisciplinary rounds and assessment for continuing care and discharge needs. Diagnosis: IPMN (intraductal papillary mucinous neoplasm) LOS Hospital: 17 days INSURANCE: Payor: MEDICARE / Plan: MEDICARE PART A & B / Product Type: *No Product type* / SECONDARY INSURANCE: [employer] [facility] [place] DECISION MAKER: Attempt Cardiopulmonary Resuscitation - Inpatient <no information> Patient continues to require hospitalization. Per team, patient requires inpatient status r/t increasing diet, TPN and c-diff pending results. Discharge date planned for 04/11 if medically ready. SonRob will be here around 1pm and will need a teach with patient. Aury from [facility] will see patient this afternoon and arrange another teach on Monday with patient and son around 1-2pm. [facility] will confirm Neftali will see patient Monday afternoon to complete third teach. Patient understands and has agreed to learn to self administer her TPN. Referred Roberto Carlos from Social works to see patient as wellfor support. Aury from [facility] will call son and set up today. Friend Inez, Nurse [phone], [phone] next to patient will be there to check in as well as a resource for patient but is not able to be available all the time. Son Roberto Carlos has committed to staying with patient x2 weeks and then friend Luba will stay with patient. Asked team to put order in to request to single lumen before discharge. Current Referral in place: [facility] for RN, PT to eval for needs in home, OT Transportation: Son Roberto Carlos will drive patient home via private vehicle when medically ready. Support: Son, friends Insurance Inspector to follow with team and family to [...] Body Fluid Culture, Aerobic & Anaerobic Bile [[id number]] Collected: 03/23/20 134 Lab Status: Final result Specimen: Bile Updated: 03/27/20 1333 Body Fluid Culture, Aerobic [[id number]] Collected: 03/23/20 134 Lab Status: Final result Specimen: Bile Updated: 03/27/20 1333 Body Fluid Culture No growth Gram Stain -- Cytocentrifuge Gram Stain performed Neutrophils seen No microorganisms seen. Anaerobic Culture [[id number]] Collected: 03/23/20 134 Lab Status: Final result Specimen: Bile Updated: 03/27/20 1117 Anaerobic Culture No anaerobic organisms isolated COVID-19 PCR [[id number]] Collected: 03/20/20 1057 Lab Status: Final result [...] diagnosis of COVID-19 is performed using the [employer] m SARS-CoV-2 Assay as authorized by the FDA Emergency Use Authorization (EUA). This EUA assay is intended for In-vitro Diagnostic (IVD) use with respiratory specimens such as nasopharyngeal swabs collected from individuals during the acute phase of infection. This assay is performed based on the instructions for use provided by [employer] and additional guidance provided by CDC and FDA. Testing is performed in the [facility] Genomics [facility] Laboratory within the Department of Pathology and Laboratory Medicine at [facility], certified under the Clinical Laboratory Improvement Amendments [...] fact sheets at the following FDA website: https://www.fda.gov/medical-devices/kqogkhefqup-demnpzy-3297-kvtsw-87-nfznafgcf- lhc-verbpnrupdppgt-hhhonqe-devices/pyams-tpawjesflsd-zefm SARS-Cov-2 RNA Source SOURCING MANAGER Swab Diagnostic Studies: None new Inpatient Medications: [...] clinical changes occur or newquestions arise, page [phone]. Case discussed with Dr. Blas Attending staff [...] carvedilol. DIEGO BLAS MD 04/10/2020 * Josue Lora RD - 04/09/2020 11:22 AM EST Nutrition [...] 1800 04/08/2020 1800 04/07/2020 1800 TPN Adult [[id number]] TPN Adult [[id number]] TPN Adult [[id number]] Order Status Active Active Last Admin New Bag at 04/08/2020 1722 by Inez Lan RN New Bag at 04/07/2020 1901 by Sanjuanita Mercado RN Medications insulin regular human 8 Units 8 Units 8 Units Additives trace elements Zn-Cu-Mn-Se 1 mL 1 mL 1 mL ascorbic acid (vitamin C) 100 mg 100 mg 100 mg Vit N4-G8-A6-B5-B6 (B Complex) 1 mL 1 mL 1 [...] encounter: 53.3 kg (117 lb 9.6 oz). [place] Body Weight: 50 kg Usual Body Weight: [...] weight loss. Protein-calorie Malnutrition: Not identified (Chencho et al, JPEN J Parenteral Enteral Nutr. 2011; 36(3): 273-83) Nutrition to continue to follow up while inpatient. JOSUE LORA RD Pager #[phone] * Katie Santamaria APRN - 04/09/2020 10:37 AM EST Follow Up [...] at discharge, she has met with Gina VANG and has been provided with a BG [...] for 118 G dextrose) Katie Santamaria APRN [facility] Endocrinology Diabetes Management Pager [phone] * Larry Longo MD - 04/09/2020 9:21 AM EST Surgical Oncology Inpatient Progress Note Patient Name: Linda MERAZ; Age: 6 1945; 74 y.o. Room/Bed: 207/207-A Today's Date: 04/09/20 ID: Linda Abel is [...] - tolerating CLD Hospital Course: POD 0 03/23: To OR [...] lb 9.6 oz) Labs: Recent Labs 04/09/20 00304/08/20 0030 04/07/20 0350 WBC 13.5* 16.1* 13.5* HGB 10.1* 9.8* 9.6* HCT 30.4* 28.6* 28.1* PLATELET 426* 477* 453* Recent Labs 04/09/202904/08/20 00304/07/20 0350 NA 133* 132* 134* K 3.9 3.5 3.6 CL 102 101 101 CO2 23 24 24 BUN 15 15 16 CREATININE 0.31* 0.29* 0.34* GLUCOSE 157 147 166 CALCIUM 7.7* 7.7* 7.7* MAGNESIUM 0.78 0.69 0.82 PHOS 2.7 3.1 3.3 LFT's No results found for: ALKPHOS, AST, ALBUMIN, BILIDIR, BILITOT, ALT, PROT KHRIS Amylase: 03/24: 26 129: 22 1210: 15 12: 327 1212: 12 Micro: Bile duct cx [...] Longo MD Surgical Oncology Service Team Pager #[phone] 04/09/20 9:21 AM * Josue Lora RD [...] 1800 04/07/2020 1800 04/06/2020 1800 TPN Adult [[id number]] TPN Adult [[id number]] TPN Adult [[id number]] Order Status Active Active Last Admin New Bag at 04/07/2020 1901 by Sanjuanita Mercado RN New Bag at 04/06/2020 1824 by Maria Esther Blancas RN Medications insulin regular human 8 Units 8 Units 8 Units Additives trace elements Zn-Cu-Mn-Se 1 mL 1 mL 1 mL ascorbic acid (vitamin C) 100 mg 100 mg 100 mg Vit U4-P8-G1-B5-B6 (B Complex) 1 mL 1 mL 1 [...] encounter: 53.3 kg (117 lb 9.6 oz). [place] Body Weight: 50 kg Usual Body Weight: [...] up while inpatient. JOSUE LORA RD Pager #[phone] * Davian Carolina MD - 04/08/2020 8:18 AM EST Surgical Oncology Inpatient Progress Note Patient Name: Linda MERAZ; Age: 6 1945; 74 y.o. Room/Bed: [address] [place] [address] Today's Date: 04/08/20 ID: Linda Abel is [...] NGT removed, tolerating sips and chips POD 04/07: No changes, tolerating sips and chips [...] PROT KHRIS Amylase: 03/24: 26 03/25: 22 12: 15 12: 327 03/28: 12 Micro: Bile [...] Attempt Cardiopulmonary Resuscitation - Inpatient Signed: Edwardo Mccoramck MD Surgical Oncology Service Team Pager #[phone] 04/08/20 8:18 AM Surgery Attending Addendum I [...] she does not meet criteria for a senior care facility. Jennifer Carolina MD 04/08/2020 10:36 AM [...] Body Fluid Culture, Aerobic & Anaerobic Bile [[id number]] Collected: 03/23/20 1346 Lab Status: Final result Specimen: Bile Updated: 03/27/20 1333 Body Fluid Culture, Aerobic [[id number]] Collected: 03/23/20 134 Lab Status: Final result Specimen: Bile Updated: 03/27/20 1333 Body Fluid Culture No growth Gram Stain -- Cytocentrifuge Gram Stain performed Neutrophils seen No microorganisms seen. Anaerobic Culture [[id number]] Collected: 03/23/20 1346 Lab Status: Final result Specimen: Bile Updated: 03/27/20 1117 Anaerobic Culture No anaerobic organisms isolated COVID-19 PCR [[id number]] Collected: 03/20/20 1057 Lab Status: Final result [...] diagnosis of COVID-19 is performed using the [employer] Al[employer] m SARS-CoV-2 Assay as authorized by the FDA Emergency Use Authorization (EUA). This EUA assay is intended for In-vitro Diagnostic (IVD) use with respiratory specimens such as nasopharyngeal swabs collected from individuals during the acute phase of infection. This assay is performed based on the instructions for use provided by [employer] and additional guidance provided by CDC and FDA. Testing is performed in the Clinical Genomics and Advanced Technology Laboratory within the Department of Pathology and Laboratory Medicine at [facility], certified under the Clinical Laboratory Improvement Amendments [...] fact sheets at the following FDA website: https://www.fda.gov/medical-devices/pfwvawkvqjw-gfyxulu-1025-soigw-61-htitfddqk- mor-nmebthqplruunf-lqqkkko-devices/budfx-wiwqrnkygqp-lvcg SARS-Cov-2 RNA Source SOURCING MANAGER Swab Diagnostic Studies: None new Inpatient Medications: [...] clinical changes occur or newquestions arise, page [phone]. Case discussed with Dr. Blas * Alesha Casillas RN - 04/07/2020 3:07 PM EST OFFICE OF CARE MANAGEMENT Insurance Inspector Follow-up Note Alesha Casillas RN reviewed record and discussed patient with Care Team. Patient plan of care discussed in multidisciplinary rounds and assessment for continuing care and discharge needs. Diagnosis: IPMN (intraductal papillary mucinous neoplasm) LOS Hospital: 15 days INSURANCE: Payor: MEDICARE / Plan: MEDICARE PART A & B / Product Type: *No Product type* / SECONDARY INSURANCE: [facility] DECISION MAKER: Attempt Cardiopulmonary Resuscitation - Inpatient [...] team. Current Referral in place: Demetrio Cervantes, STEPHANIE, [place], [facility] HomeHealth Transportation: Son will drive patient home via private vehicle when medically ready. Support: Son Insurance Inspector to follow with team and family to [...] was able to discuss plan with provider [id number]. Nutrition Support: TPN Medication Recent History (Show up to 3 orders; newest on the left. Changes between the two most recent orders are indicated.) Start date and time 04/07/2020 1800 04/06/2020 1800 04/03/2020 1800 TPN Adult [[id number]] TPN Adult [[id number]] TPN Adult [[id number]] Order Status Active Active Last Admin New Bag at 04/06/2020 1824 by Maria Esther Blancas RN New Bag at 04/05/2020 1820 by Mervin Grimes, RN Medications insulin regular human 8 Units 8 Units 6 Units Additives trace elements Zn-Cu-Mn-Se 1 mL 1 mL 1 mL ascorbic acid (vitamin C) 100 mg 100 mg -- Vit N7-K5-W3-B5-B6 (B Complex) 1 mL 1 mL 1 [...] encounter: 53.3 kg (117 lb 9.6 oz). [place] Body Weight: 50 kg Usual Body Weight: [...] weight loss. Protein-calorie Malnutrition: Not identified (Vadim, KHRISEN J Parenteral Enteral Nutr. 2011; 36(3): 273-83) Nutrition to continue to follow up while inpatient. JOSUE LORA RD Pager #[phone] * Diego Blas MD - 04/07/2020 11:17 [...] complicated by abdominal pain requiring a dilaudid DIRECTOR OF SCIENCE that was weaned off on 03/28. She [...] cell carcinoma 2010 [facility]-back ??? Breast cancer ??? Pre-diabetes 03/30/2020 [...] asneeded. ??? fluticasone propionate (FLONASE) 50 mcg/actuation [place], Suspension 1 spray by Each Nare route [...] N/A 12/05/2019 Mammo Stereotactic Biopsy Left 12/05/2019 [facility] RAD MAMMOGRAPHY ??? MASTECTOMY Right with RT ??? PRO BX/REMV, LYMPH NODE, DEEP AXILL Left 12/20/2019 BIOPSY OR EXCISION OF LYMPH NODE(S), OPEN, DEEP AXILLARY NODE(S) (WRVU 6.43) performed by Susan Rivera MD at [facility] OSC ??? PRO COLONOSCOPY, DIAGNOSTIC 01/07/2014 COLONOSCOPY, DIAGNOSTIC performed by Izzy Johnson MD at [facility] ENDOSCOPY ??? PRO ENDOSCOPIC US EXAM, ESOPH N/A 11/15/2019 UPPER EUS- ENDOSCOPIC ULTRASOUND performed by Ralf Urrutia MD at [facility] ENDOSCOPY ??? PRO INTRAOP SENTINEL LYMPH ID W/DYE INJECTION Left 12/20/2019 INTRAOPERATIVE ID (MAPPING) SENTINEL LYMPH NODE,INCLUDES INJECTION (WRVU 2.5) performed by Susan Rivera MD at [facility] OSC ??? PRO MASTECTOMY, SIMPLE, COMPLETE Left 12/20/2019 MASTECTOMY, SIMPLE, COMPLETE (WRVU 15.85) performed by Susan Rivera MD at [facility] OSC ??? PRO OMENTAL FLAP, INTRA-ABDOMINAL 03/23/2020 @OMENTAL FLAP, INTRA-ABDOMINAL (WRVU 6.54) performed by Davian Carolina MD at [facility] MAIN OR ??? PRO UNLISTED PX PNCRS N/A 03/23/2020 ROBOTIC PANCREATECTOMY,WHIPPLE, PARTIAL GASTRECTOMY W/ PANCREATOJEJUNOSTOMY performed by Davian Carolina MD at [facility] MAIN OR ??? PRO UPPER GI ENDOSCOPY, DIAGNOSTIC N/A 04/02/2020 EGD, UPPER GI ENDOSCOPY performed by Ralf Urrutia MD at [facility] ENDOSCOPY Family History: Siblings: Sister with breast [...] MD Internal Medicine, PGY3 BETHANY Pager # [phone] Attending Staff New Consult Documentation We have [...] healthcare team, the patient would benefit from senior care level of care at discharge. ?? I have met with the patient to discuss discharge planning needs. I have provided the [facility], Office of Care Management letter from the Assistant Real Estate Manager pertaining to rehab referrals. I have also provided a letter describing our affiliations within the [facility] and educatedthem about their right to choose where referrals are. ?? Provided patient with [facility] Star Quality Rating for SNF, LTAC [...] The patient have requested referrals to: 1. [facility] ([facility]) ([facility]) [address] [place] [address] ?? PHONE: [phone] FAX: [phone] 2. [facility] ([facility]) ([facility]) [address] [place] [address] ?? PHONE: [phone] FAX: [phone] 3. [facility] ([facility]) ([facility]) [address] [place] [address] ?? PHONE: [phone] FAX: [phone] ?? Expected date of discharge: 04/10 Note routed to Hydraulics Teacher who will communicate referrals to facilities and provide any required information. * Edwardo Mccormack MD - 04/07/2020 7:42 AM EST Surgical Oncology Inpatient Progress Note Patient Name: Linda MERAZ; Age: 6 1945; 74 y.o. Room/Bed: -A Today's Date: 04/07/20 ID: Linda Abel is [...] Mccormack MD Surgical Oncology Service Team Pager #[phone] 04/07/20 7:42 AM * Davian Carolina MD - 04/06/2020 1:18 PM EST Surgical Oncology Inpatient Progress Note Patient Name: Linda MERAZ; Age: 6 1945; 74 y.o. Room/Bed: 207/-A Today's Date: 04/06/20 ID: Linda Abel is [...] tx POD 04/04: ROEL POD 04/05: ROEL Objective Last [...] (117 lb 9.6 oz) Labs: Recent Labs 04/06/20 0130 04/05/20 0110 04/04/20 0326 WBC 16.7* 21.4* 20.5* HGB 9.2* 9.9* 9.1* HCT 27.3* 30.0* 27.1* PLATELET 445* 444* 367* Recent Labs 04/06/20 0130 04/05/20 0110 04/04/20 0326 NA 137 134* 134* K 3.6 3.4* 3.3* CL 102 101 101 CO2 26 26 28 BUN 16 11 13 CREATININE 0.42* 0.36* 0.34* GLUCOSE 180 175 181 CALCIUM 7.7* 8.0* 7.8* MAGNESIUM 0.88 0.82 0.84 PHOS 3.3 2.9 2.4* LFT's No results found for: ALKPHOS, AST, ALBUMIN, BILIDIR, BILITOT, ALT, PROT KHRIS Amylase: 8: 26 129: 22 1210: 15 12/11: 327 12: 12 Micro: Bile duct cx [...] Mccormack MD Surgical Oncology Service Team Pager #[phone] 04/06/20 1:18 PM Surgery attending addendum I [...] and I would not exactly call the bvl-ug-gahnvkol. I called and spoke to her son Roberto Carlos who is down in [place] and I agree that at this point the best option for Maricruz given that she will need to be on TPN will be for her to go to a swing bed type facility either at [facility] or at [facility]. We had previously hoped that she would be able to go homeand no clear was working on VNA with [facility] for the TPN but basically given the remote location where she lives up in [place], [place] and the lack of support she essentially will not beable to go home with TPN and I think we need to start really considering the swing bed options as mentioned above at [facility] or at [facility]. This assumes all goes well with her NG tube out. We alsomay need to reengage medicine to help with her hypertension as this is been quite a refractory issue during this hospitalization and we need their help. Jennifer Carolina MD 04/06/2020 5:29 PM This note was created using [employer] ([employer]) voice recognition software. * Josue Lora RD [...] 1800 04/03/2020 1800 03/27/2020 1800 TPN Adult [[id number]] TPN Adult [[id number]] TPN Adult [[id number]] Order Status Active Active Discontinued Last Admin New Bag at 04/05/2020 1820 by Mervin Grimes, RN New Bag at 03/29/2020 1949 by Ness Cummings, RN Medications insulin regular human 8 Units 6 Units -- Additives trace elements Zn-Cu-Mn-Se 1 mL 1 mL 1 mL ascorbic acid (vitamin C) 100 mg -- -- Vit X0-Q7-U3-B5-B6 (B Complex) 1 mL 1 mL 1 [...] encounter: 53.3 kg (117 lb 9.6 oz). [place] Body Weight: 50 kg Usual Body Weight: [...] up while inpatient. JOSUE LORA RD Pager #[phone] * Alesha Casillas RN - 04/06/2020 10:24 AM EST OFFICE OF CARE MANAGEMENT Insurance Inspector Follow-up Note Alesha Casillas RN reviewed record and discussed patient with Care Team. Patient plan of care discussed in multidisciplinary rounds and assessment for continuing care and discharge needs. Diagnosis: IPMN (intraductal papillary mucinous neoplasm) LOS Hospital: 14 days INSURANCE: Payor: MEDICARE / Plan: MEDICARE PART A & B / Product Type: *No Product type* / SECONDARY INSURANCE: [facility] [place] DECISION MAKER: Attempt Cardiopulmonary Resuscitation - Inpatient <no information> Patient continues to require hospitalization. Per team, patient requires inpatient status r/t dc N/G tube today. On sips and chips. Discharge date planned for 04/08 if medically ready. Current Referral in place: [facility] for RN. Added PT, OT. [facility] routed for TPN supportif needed. Transportation: Son will drive patient home via private vehicle when medically ready. Support: Son Insurance Inspector to follow with team and family to assist with discharge needs when patient ready for discharge. Alesha Casillas RN, BSN Case Management pgr [phone] * Meera Medina OT - 04/06/2020 10:02 AM EST Occupational [...] Pt can don socks indep Pt draped robe over her back d/t IV lines but [...] Total Evaluation Minutes, Occupational Therapy: 45 Pager: [phone] PEPITO Kirk Plan updated by OT to monitor. The entirety of this note still belongs to the original author, PEPITO Amador. Meera Medina OT Occupational Therapy Rehabilitation Department * Katie Santamaria APRN - 04/06/2020 9:35 AM EST Images from [...] 1:15 I:C ratio ?? Katie Santamaria APRN [facility] Endocrinology Diabetes Management Pager [phone] * Davian Carolina MD - 04/06/2020 7:09 [...] 1945; 74 y.o. Room/Bed: 207/207-A Today's Date: 04/05/20 ID: Linda Abel is [...] HTN overnight with mild hyperglycemia. POD 6 /: BP continues to be elevated, patient reassured [...] Murillo MD Surgical Oncology Service Team Pager #[phone] 04/05/20 3:52 PM * Davian Carolina MD - 04/04/2020 10:14 AM EST Surgical Oncology Inpatient Progress Note Patient Name: Linda MERAZ; Age: 6 1945; 74 y.o. Room/Bed: [address] [place], [place] [address] Today's Date: 04/04/20 ID: Linad Abel is a 74 y.o. female with [...] continues to rise Hospital Course: POD 0 127: To OR for robotic WhippleROEL post-op. Note [...] take BP on RUE intermittently POD 7 /14: Stopped prn BP meds (hydralazine/labetalol), continued HCTZ with goal BP 150/90s per medicine recs POD 8 1215: nausea with a few episodes of emesis, BP improved on HCTZ, AXR unremarkable, hyponatremia (130) POD 9 1216: continues to have nausea with a few [...] Murillo MD Surgical Oncology Service Team Pager #[phone] 04/04/20 10:14 AM Surgery Attending Addendum I [...] her son-Roberto Carlos who is down in [place] to chat about the plan going forward. [...] MD 04/04/2020 This note was created using [employer] voice recognition software. Jennifer Carolina MD * [...] OUTCOME EVALUATION:??Will continue to monitor * Josue Lora RD - 04/03/2020 1:04 PM EST Nutrition [...] time 04/03/2020 1800 03/27/2020 1800 TPN Adult [[id number]] TPN Adult [[id number]] Order Status Active Discontinued Last Admin New Bag at 03/29/2020 1949 by Ness Cummings, RN Medications insulin regular human 6 Units -- Additives trace elements Zn-Cu-Mn-Se 1 mL 1 mL Vit J5-K2-L9-B5-B6 (B Complex) 1 mL 1 mL zinc [...] encounter: 53.3 kg (117 lb 9.6 oz). [place] Body Weight: 50 kg Usual Body Weight: [...] weight loss. Protein-calorie Malnutrition: Not identified (Chencho et al, JPEN J Parenteral Enteral Nutr. 2012 August; 36(3): 273-83) Nutrition to continue to follow up while inpatient. JOSUE LORA RD Pager #[phone] * Alesha Casillas RN - 04/03/2020 12:26 PM EST This patient requires infusion therapy for TPN. A letter describing our affiliations was reviewed with them and they were educated about their right to choose where referrals are placed. Request referral to [place], [place] for TPN or . Expected date of discharge: 04/07/2020. Patient will require teaching. Referral routed to the Hydraulics Teacher for matching with agency/vendor and to provide any required information. * Olayinka Ojeda OTA - 04/03/2020 11:02 AM EST Occupational Therapy Treatment Note Treatment Number OT: 4 Patient Dx: Linda Abel is a 74 y.o. female admitted on 03/23/2020 with PMH main duct IPMN,??now Post-Op??s/p robotic whipple on 03/23. ?? Precautions/Special Considerations: Fall risk, PICC, NG tube clamped Interval History: -Per MD note: -Ceftriaxone/Flagyl started for PNA treatment -UA [...] Total Evaluation Minutes, Occupational Therapy: 15 Pager: [phone] PEPITO Kirk Occupational Therapy Rehabilitation Department * [...] ??C (99.9 ??F)] Heart Rate: [86] Resp: [-] BP: (117-217)/(65-99) SpO2: [91 %-100 %] Heart [...] - 1:20 I:C ratio Katie Santamaria APRN [facility] Endocrinology Diabetes Management Pager [phone] 20 minutes of this 35 minute visit [...] MERAZ; Age: 6 1945; 74 y.o. Room/Bed: [facility]-A Today's Date: 04/03/20 ID: Linda Abel is [...] HTN overnight with mild hyperglycemia. POD 6 13: BP continues to be elevated, patient reassured [...] Murillo MD Surgical Oncology Service Team Pager #[phone] 04/03/20 7:49 AM * Patricia Jordan, PT - 04/02/2020 4:09 PM EST 04/02/20 [...] at a later time. Olayinka BEYER Pager: [phone] * Josue Lora RD - 04/02/2020 12:44 [...] date and time 03/27/2020 1800 TPN Adult [[id number]] Order Status Discontinued Last Admin New Bag at 03/29/2020 1949 by Ness Cummings, RN Additives trace elements Zn-Cu-Mn-Se 1 mL Vit Q0-O8-I7-B5-B6 (B Complex) 1 mL zinc sulfate 10 [...] encounter: 53.3 kg (117 lb 9.6 oz). [place] Body Weight: 50 kg Usual Body Weight: [...] up while inpatient. JOSUE LORA RD Pager #[phone] * Davian Carolina MD - 04/02/2020 8:15 AM EST Surgical Oncology Inpatient Progress Note Patient Name: Linda MERAZ; Age: 6 1945; 74 y.o. Room/Bed: [address] [place] [address] Today's Date: 04/02/20 ID: Linda Abel is [...] HCTZ, AXR unremarkable, hyponatremia (130) POD 9 1216: continues to have nausea with a few [...] 26 129: 22 1210: 15 1211: 327 03/28: 12 Micro: Bile duct cx [...] Mccormack MD Surgical Oncology Service Team Pager #[phone] 04/02/20 10:58 AM Surgery Attending Addendum I [...] minimal contrast passing downthe efferent limb. See bilingual sales representative image below. I placed an NG [...] [facility] - 04/01/2020 3:28 PM EST Performance Reporter Encounter Note Patient Name: Linda Abel : [id number] MR#: [id number] Admit Date: 03/23/2020 5:51 AM Hospital Day 9 days Narrative: Follow-up visit for continued assessment and support. Patient was not available for visit and I will visit an other time. Assessment: Intervention and Outcome: Follow-up: Time in Direct Care: [facility] 04/01/2020 * Alesha Casillas RN - 04/01/2020 11:17 AM EST OFFICE OF CARE MANAGEMENT Insurance Inspector Follow-up Note Alesha Casillas RN reviewed record and discussed patient with Care Team. Patient plan of care discussed in multidisciplinary rounds and assessment for continuing care and discharge needs. Diagnosis: IPMN (intraductal papillary mucinous neoplasm) LOS Hospital: 9 days INSURANCE: Payor: MEDICARE / Plan: MEDICARE PART A & B / Product Type: *No Product type* / SECONDARY INSURANCE: [facility] DECISION MAKER: Attempt Cardiopulmonary Resuscitation - Inpatient <no information> Patient continues to require hospitalization. Per team, patient requires inpatient status r/t nausea, Ct scan, rechecking labs. Discharge date planned for if medically ready. / Current Referral in place: [facility] for RN Transportation: Son will drive patient home via private vehicle when medically ready. Support: Son Insurance Inspector to follow with team and family to assist with discharge needs when patient ready for discharge. Alesha Casillas RN Case Management pgr [phone] * Davian Carolina MD - 04/01/2020 9:13 AM EST Surgical Oncology Inpatient Progress Note Patient Name: Linda Abel DOB; Age: 6 1945; 74 y.o. Room/Bed: [facility] Today's Date: 04/01/20 ID: Linda Abel is [...] be on HCTZ Hospital Course: POD 0 12/7: To OR for robotic WhROEL martinez post-op. Note intra-operative concern for common hepaticartery discoloration (? Pseydoaneurysm); post-op LFTS obtained with mild elevation, trended POD 1 128: Convalesced on 2W. OOB to chair and walked x 1. Some paranoia/disorientation. PICC placed. POD 2 12/9: Disoriented overnight but redirectable, improved during day. [...] (117 lb 9.6 oz) Labs: Recent Labs 04/01/20 0420 03/31/20 0636 03/30/20 0120 WBC 9.8* 9.0 10.4* HGB 11.3* 11.4* 12.0 HCT 32.9* 33.7* 34.9* PLATELET 320 252 231 Recent Labs 04/01/20 0420 03/31/20 0636 03/30/20 0120 NA 130* 133* 135 K 3.5 3.9 3.7 CL 91* 95* 98 CO2 31 29 28 BUN 03 02 15 CREATININE 0.48* 0.48* 0.40* GLUCOSE 141 -- -- CALCIUM 8.3* 8.7 8.2* MAGNESIUM -- 0.77 0.83 PHOS -- 3.7 3.3 LFT's No results found for: ALKPHOS, AST, ALBUMIN, BILIDIR, BILITOT, ALT, PROT KHRIS Amylase: 03/24: 26 129: 22 12: 15 1211: 327 12: 12 Micro: Bile [...] Mccormack MD Surgical Oncology Service Team Pager #[phone] 04/01/20 9:13 AM Surgery attending addendum I [...] 9:34 AM This note was created using [employer] voice recognition software. * Gina Greer RN - 03/31/2020 2:58 PM EST Diabetes Clinical Nurse Specialist Met with Mrs. Abel to discuss diabetes prevention. Pt was found to have pre-diabetes (HbA1c 5.8%) and is now S/P [place] on 03/23/20. Encouraged pt to eat a [...] She had a regular diet, tolerated well. Assistant Women'S Basketball Coach to bedside to speak w/ pt. Adequate [...] PICC, NG tube clamped Interval History: -Per MD note: - Had an episode of bilious [...] Total Evaluation Minutes, Occupational Therapy: 23 Pager: [phone] PEPITO Kirk Occupational Therapy Rehabilitation Department * Janet Grimes RD - 03/31/2020 9:45 AM EST Nutrition Progress Note Patient admitted with H main duct IPMN, now 8 Days Post-Op [...] nutrient intake and support healing ?? Added Trinidadian yogurt with meals and reviewed foods for [...] encounter: 53.3 kg (117 lb 9.6 oz). [place] Body Weight: 50 kg Usual Body Weight: [...] regime. 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 She states she has support to choose soft easy to digest foods post DC and was appreciative of review of role of healthy CHO foods for healthy nutrition to support healing. Protein-calorie Malnutrition: Not identified (Chencho et al, JPEN J Parenteral Enteral Nutr. 2011; 36(3): 273-83) Nutrition to continue to follow up while inpatient JANET GRIMES RD Pager #:[phone] * Lisa Villa, CONCRETE PILE DRIVER OPERATOR - 03/31/2020 9:04 AM EST Physical Therapy Note Treatment Number PT: 3 Patient profile: Linda Abel??is a 74 y.o.??female??with H main duct IPMN,??s/p robotic whipple on 03/23 Interval History: decreased eye swelling and decreased crepitus, mental status cleared, ambulating with nursing staff, Social History: Pt lives alone in a multi level home with 5 steps to enter. 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 Time IN / OUT: 3551-6256 Total Evaluation Minutes, Physical Therapy: 16(TEF 1) Lisa Villa PTA Pager: [phone] Physical Therapy Inpatient Rehabilitation Department * Davian Carolina MD - 03/31/2020 7:26 AM EST Surgical Oncology Inpatient Progress Note Patient Name: Linda MERAZ; Age: 6 1945; 74 y.o. Room/Bed: -A Today's Date: 03/31/20 ID: Linda Abel is [...] be on HCTZ Hospital Course: POD 0 03/23: To OR [...] PROT KHRIS Amylase: 03/24: 26 03/25: 22 12: 15 1211: 327 12: 12 Micro: Bile [...] Mccormack MD Surgical Oncology Service Team Pager #[phone] 03/31/20 7:23 AM Surgery attending addendum I [...] 2:36 PM This note was created using [employer] voice recognition software. * Elma Zacarias MD [...] returns. Elma Zacarias MD 03/30/20 * Swathi Dyer, RN - 03/30/2020 4:08 PM EST OUTCOME [...] today. TPN d/c'd today. Consult with Endocrine. KHRIS site with scant serosanguineous output.. Voiding adequate [...] OUTCOME EVALUATION: Will continue to monitor * Alesha Casillas RN - 03/30/2020 11:26 AM EST OFFICE OF CARE MANAGEMENT Insurance Inspector Follow-up Note Alesha Casillas RN reviewed record and discussed patient with Care Team. Patient plan of care discussed in multidisciplinary rounds and assessment for continuing care and discharge needs. Diagnosis: IPMN (intraductal papillary mucinous neoplasm) LOS Hospital: 7 days INSURANCE: Payor: MEDICARE / Plan: MEDICARE PART A & B / Product Type: *No Product type* / SECONDARY INSURANCE: [facility] DECISION MAKER: Attempt Cardiopulmonary Resuscitation - Inpatient <no information> Patient continues to require hospitalization. Per team, patient requires inpatient status r/t stopping TPN, diabetes teaching needed and Medicine consult for HTN management. Discharge date planned for 04/01 if medically ready. Current Referral in place: [facility] for RN. Transportation: Son will drive patient home via private vehicle when medically ready. Support: Son Insurance Inspector to follow with team and family to assist with discharge needs when patient ready for discharge. Alesha Casillas RN Case Management pgr [phone] * Davian Carolina MD - 03/30/2020 7:05 AM EST Surgical Oncology Inpatient Progress Note Patient Name: Linda MERAZ; Age: 6 1945; 74 y.o. Room/Bed: [address] [place] [address] Today's Date: 03/30/20 ID: Linda Abel is [...] PROT KHRIS Amylase: 03/24: 26 129: 22 12: 15 1211: 327 1212: 12 Micro: Bile [...] Mccormack MD Surgical Oncology Service Team Pager #[phone] 03/30/20 7:05 AM Surgery Attending Addendum I [...] morning. Denies pain, managed with scheduled medications. DIRECTOR OF SCIENCE d/c'd. Diet increased to Regular diet, tolerating [...] Surgical Oncology Inpatient Progress Note Patient Name: Lnida MERAZ; Age: 6 1945; 74 y.o. Room/Bed: 207/-A Today's Date: 03/29/20 ID: Linda Abel is [...] -BM this AM Hospital Course: POD 0 03/23: To OR [...] med for her); PRNs for >160mmHg Discontinue DIRECTOR OF SCIENCE - transition to PO pain meds. NEURO: [...] Kang MD Surgical Oncology Service Team Pager #[phone] 03/29/20 9:57 AM Surgery Attending Addendum I [...] 12:33 PM This note was created using [employer] voice recognition software. * Raj Kang MD - 03/28/2020 12:50 PM EST KHRIS drain and NGT removed this morning, Patient tolerated well without issue. Nurse updated. Raj Kang MD * Raj Kang MD - 03/28/2020 10:02 AM EST Surgical Oncology Inpatient Progress Note Patient Name: Linda MERAZ; Age: 6 1945; 74 y.o. Room/Bed: 207/-A Today's Date: 03/28/20 ID: Linda Abel is [...] tube in overnight Hospital Course: POD 0 03/23: To OR [...] lb 9.6 oz) Labs: Recent Labs 03/28/20 01403/27/2031903/26/20144 WBC 6.9 7.6 9.4 HGB 11.3* 11.7 11.4* HCT 33.4* 35.5* 34.3* PLATELET 205 198 168 Recent Labs 03/28/20 01403/27/2031903/26/20144 NA 139 139 139 K 3.7 3.8 3.4* CL 103 101 98 CO2 27 27 29 BUN 17 12 6* CREATININE 0.46* 0.49* 0.54* GLUCOSE -- 73 131 CALCIUM 8.4* 8.5 8.6 MAGNESIUM 0.87 0.87 0.82 PHOS 2.9 3.1 2.3* LFT's No results found for: ALKPHOS, AST, ALBUMIN, BILIDIR, BILITOT, ALT, PROT KHRIS Amylase: 03/24: 26 03/25: 22 03/26: 15 12: 327 03/28: 12 [...] Kang MD Surgical Oncology Service Team Pager #[phone] 03/28/20 10:02 AM * Olayinka Ojeda OTA [...] Total Evaluation Minutes, Occupational Therapy: 30 Pager: [phone] PEPITO Kirk Occupational Therapy Rehabilitation Department * Davian Carolina MD - 03/27/2020 12:38 PM EST Surgical Oncology Inpatient Progress Note Patient Name: Linda MERAZ; Age: 6 1945; 74 y.o. Room/Bed: [address] [place] [address]-A Today's Date: 03/27/20 ID: Linda Abel is [...] x3 -Denies Flatus/BM Hospital Course: POD 0 03/23: To OR for robotic Whipple, ROEL post-op. Note intra-operative concern for common hepaticartery discoloration (? Pseydoaneurysm); post-op LFTS obtained with mild elevation, trended POD 1 128: Convalesced on 2W. OOB to chair and walked x 1. Some paranoia/disorientation. PICC placed. POD 2 12/: Disoriented overnight but redirectable, improved during day. Transferred to private room. POD 3 /: CTA for bump in LFTs in light [...] 54.9 kg (121 lb) Labs: Recent Labs 03/27/20 0320 03/26/20 0145 03/25/20 0155 WBC 7.6 9.4 13.9* HGB 11.7 11.4* 11.2* HCT 35.5* 34.3* 33.5* PLATELET 198 168 203 Recent Labs 03/27/20 0320 03/26/20 0145 03/25/20 0155 03/24/20 1740 NA 139 139 138 -- K [...] Total Protein 5.4 (L) 03/27/2020 KHRIS Amylase: 03/24: 26 12: 22 12: 15 12: 327 Micro: Bile [...] YE MD Surgical Oncology Service Team Pager #[phone] 03/27/20 12:38 PM Surgery Attending Addendum I [...] whipple. Jennifer Carolina MD 03/27/2020 * Josue Lora, RD - 03/27/2020 12:31 PM EST Nutrition [...] date and time 03/27/2020 1800 TPN Adult [[id number]] Order Status Active Additives trace elements Zn-Cu-Mn-Se 1 mL Vit A0-D0-Q0-B5-B6 (B Complex) 1 mL zinc sulfate 10 [...] Intake 572 ml Output 2595 ml Net -202 ml Admit Weight: 54.89 kg Estimated body mass index is 22.13 kg/m?? as calculated from the following: Height as of this encounter: 157.5 cm (5' 2). Weight as of this encounter: 54.9 kg (121 lb). [place] Body Weight: 50 kg Usual Body Weight: [...] up while inpatient. JOSUE LORA RD Pager #[phone] * Marisa Lance - 03/27/2020 10:20 AM [...] please obtain updated weight. Marisa Lance Pager: [phone] * Alesha Casillas RN - 03/26/2020 12:43 PM EST OFFICE OF CARE MANAGEMENT Insurance Inspector Follow-up Note Alesha Casillas RN reviewed record and discussed patient with Care Team. Patient plan of care discussed in multidisciplinary rounds and assessment for continuing care and discharge needs. Diagnosis: IPMN (intraductal papillary mucinous neoplasm) LOS Hospital: 3 days INSURANCE: Payor: MEDICARE / Plan: MEDICARE PART A & B / Product Type: *No Product type* / SECONDARY INSURANCE: [facility] DECISION MAKER: Attempt Cardiopulmonary Resuscitation - Inpatient <no information> Patient continues to require hospitalization. Per team, patient requires inpatient status r/t needing a CTA today. LFT increasing. Discharge date planned for 03/30 if medically ready. Current Referral in place: [facility] for RN Transportation: Son will drive patient home via private vehicle when medically ready. Support: Son Insurance Inspector to follow with team and family to assist with discharge needs when patient ready for discharge. Alesha Casillas RN Case Management pgr [phone] * Paty Kenney MD - 03/26/2020 10:00 AM EST Surgical Oncology Inpatient Progress Note Patient Name: Linda Abel ; Age: 6 1945; 74 y.o. Room/Bed: 207/[facility] Today's Date: 03/26/20 ID: Linda Abel is [...] and home health. Hospital Course: POD 0 12/7: To OR for robotic WhROEL martinez post-op. Note intra-operative concern for common hepaticartery discoloration (? Pseydoaneurysm); post-op LFTS obtained with mild elevation, trended POD 1 12: Convalesced on 2W. OOB to chair and walked x 1. Some paranoia/disorientation. PICC placed. POD 2 12/9: Disoriented overnight but redirectable, improved during day. [...] 54.9 kg (121 lb) Labs: Recent Labs 03/26/2014403/25/20 0155 03/24/20 0828 03/23/20 1830 WBC 9.4 13.9* 16.3* 23.4* HGB 11.4* 11.2* 11.7 12.2 HCT 34.3* 33.5* 37.0 37.9 PLATELET 168 203 214 275 Recent Labs 03/26/2014403/25/20 0155 03/24/20 1740 03/24/20 0828 03/23/20 1830 NA 139 138 -- 140 141 [...] 5.5 (L) 03/26/2020 KHRIS Amylase: 03/24: 26 03/25: 22 03/26: 15 Micro: Bile duct cx (03/23): NGTD [...] Kenney MD Surgical Oncology Service Team Pager #[phone] 03/26/20 10:00 AM * Maria Esther Blancas [...] in the hallway. Pain well controlled with DIRECTOR OF SCIENCE. Not passing gas, no BM, adequate urine [...] assessment: [current deficits]: 74 female s/p robotic salida current risk factors include: PICC, DIRECTOR OF SCIENCE, acute pain, recent surgery, tubes/drains, and generalizedweakness. 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 Vital Signs: SpO2: 95% on 2L, [...] (P) 15 TEF PATRICIA JORDAN, PT Pager: [phone] Physical Therapy Inpatient Rehabilitation Department * Meera [...] cell carcinoma 2010 [facility]-back ??? Breast cancer Past Surgical History: [...] N/A 12/05/2019 Mammo Stereotactic Biopsy Left 12/05/2019 [facility] RAD MAMMOGRAPHY ??? MASTECTOMY Right with RT ??? PRO BX/REMV, LYMPH NODE, DEEP AXILL Left 12/20/2019 BIOPSY OR EXCISION OF LYMPH NODE(S), OPEN, DEEP AXILLARY NODE(S) (WRVU 6.43) performed by Susan Rivera MD at [facility] OSC ??? PRO COLONOSCOPY, DIAGNOSTIC 01/07/2014 COLONOSCOPY, DIAGNOSTIC performed by Izzy Johnson MD at [facility] ENDOSCOPY ??? PRO ENDOSCOPIC US EXAM, ESOPH N/A 11/15/2019 UPPER EUS- ENDOSCOPIC ULTRASOUND performed by Ralf Urrutia MD at [facility] ENDOSCOPY ??? PRO INTRAOP SENTINEL LYMPH ID W/DYE INJECTION Left 12/20/2019 INTRAOPERATIVE ID (MAPPING) SENTINEL LYMPH NODE,INCLUDES INJECTION (WRVU 2.5) performed by Susan Rivera MD at [facility] OSC ??? PRO MASTECTOMY, SIMPLE, COMPLETE Left 12/20/2019 MASTECTOMY, SIMPLE, COMPLETE (WRVU 15.85) performed by Susan Rivera MD at [facility] OSC Social History: Patient lives Alone, son [...] day. 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 Precautions/Special Considerations: Fall risk, PICC, NG [...] 59.67% limited in ADL performance per the [facility]. Patient is well below her baseline level [...] and measurable assessment of functional outcome. Pager: [phone] Meera Salinas OT 03/25/2020 Occupational Therapy Rehabilitation Department * Alice Ye R - 03/25/2020 1:33 PM EST Surgical Oncology Inpatient Progress Note Patient Name: Linda MERAZ; Age: 6 1945; 74 y.o. Room/Bed: [address] [place] [address] Today's Date: 03/25/20 ID: Linda Abel is [...] Total Protein 5.2 (L) 03/25/2020 KHRIS Amylase: 8: 26 129: 22 Micro: Bile duct cx (03/23): NGTD New Imaging: n/a Assessment / Plan: Linda Abel is a 74 y.o. female with PMH breast ca, HTN, pancreatic IPMN, 2Days Post-Op s/p robotic Whipple. Doing well on the floor this AM. Awaiting ROBF. KHRIS amylase reassuringly low. LFTs are stable - [...] YE MD Surgical Oncology Service Team Pager #[phone] 03/25/20 1:33 PM * Beatriz Singh RN [...] MERAZ; Age: 6 1945; 74 y.o. Room/Bed: 210/210-A Today's Date: 03/24/20 ID: Linda Abel is a 74 y.o. female with PMH main duct IPMN, now 1 Day Post-Op s/p robotic whipple. Procedures this Hospitalization: 12/7: Robotic whipple OR Findings: No metastatic disease. [...] emphysema, continue to encourage appropriate usage of DIRECTOR OF SCIENCE. Would be good to get OOB today. [...] YE MD Surgical Oncology Service Team Pager #[phone] 03/24/20 9:51 AM Surgery attending addendum I [...] that is improved when she pushes her DIRECTOR OF SCIENCE button. O: Temp: [36.3 ??C (97.3 ??F)-37 [...] Result Value Ref Range Surgical Pathology Report [id number] Location: OR; OR09; A The signing pathologist has (i) examined the relevant preparation(s) for the specimen(s) and (ii) rendered or confirmed the diagnosis(es). . Frozen Section FROZEN SECTION DIAGNOSIS _BFS1,2 Pancreatic neck margin: Negative for tumor 03/23/20 13:12 Electronically signed by: Hiro Burton MD Verified: 03/23/2020 Pathologist Performed at: -[facility] Dept. [place]ology, [address], [place], [place] This intraoperative consultation should be interpreted [...] SCDs in place, warm and well perfused AP Linda Maggie is a 74 y.o. female s/p robotic [...] secondary to breast cancer hx. NGT to LIWS, labs sent. HOB up 30. 1900: Continues to be restless and have abd pain in spasms. KHRIS site reinforced. Pt reassured that swelling around eyes will improve with time and head up. Pt not interacting verbally. Occasionally sits up suddenly with abdominal pain. 1999: Pt dosing, appears restful, will continue to [...] I saw Maricruz this am in the [place] area. She is here with her son- [...] RN - 04/10/2020 11:10 AM ESTAssociated Order(s): DH VAS PICC REWIRE PICC/Midline Insertion Procedure Note Indications: [...] to the planned procedure. Hand Hygiene: The customer relations consultant did perform hand hygiene prior to line insertion. Catheter type: PICC Lot number: [id number] Procedure Technique: Skin was prepped with chlorhexidine. [...] 0 cm Tip in SVC per DR SIN. The line was placed over a [...] to the planned procedure. Hand Hygiene: The customer relations consultant did perform hand hygiene prior to line insertion. Catheter type: PICC Lot number: [id number] Procedure Technique: Skin was prepped with chlorhexidine. [...] Review Outcome: Ongoing (Interventions Implemented as Appropriate) 03/24/20180004/09/202019 Coping/Psychosocial Plan Of Care Reviewed With -- patient Plan of Care Review Progress progress toward functional goals as expected -- Irineo pain has been well controled with her [...] EST OUTCOME EVALUATION NOTE: ?? OUTCOME SUMMARY: Pt??pain??/ in back, managed w/ heat pack.??Pt bps [...] EST OUTCOME EVALUATION NOTE: ?? OUTCOME SUMMARY: Pt??pain??2-3/10 pain today, managed w/ prn dilaudid.??Pt bps 160/100s, aware. Pt tolerating??sips and chips diet??w/o??nausea or [...] elevated at 37.8, resolved with no intervention. MD aware. Pain 2/10;??managed with PRN IV dilaudid [...] glasses ? * Plan of Care - Yonny, Maria Esther Stoner RN - 04/06/2020 3:55 PM EST OUTCOME [...] patches and ambulation.??Pt bps 160/90s in afternoon, md aware, given 2x labetalol per md [...] Urrutia MD - 04/02/2020 4:04 PM EST [facility] Operative Note Patient Name: Linda Abel : [id number] MR#: [id number] Case Date: 04/02/2020 Surgeon: Surgeon(s) and Role: * Ralf Urrutia MD - Primary Preoperative diagnosis: Post Whipple Postoperative diagnosis: * No post-op diagnosis entered * Procedure(s): EGD, UPPER GI ENDOSCOPY Please see Provation report for details. * Consult Note - RobChela - 04/02/2020 11:10 AM EST GASTROENTEROLOGY & HEPATOLOGY CONSULTATION Initial Consult Note Requesting Provider: Davian Carolina MD REASON FOR CONSULTATION Nausea/vomiting s/p Whipple HISTORY OF PRESENT ILLNESS Linda Abel is a 74 y.o. PMHX breast cancer s/p mastectomy, main duct IPMN s/p Whipple with [id number] 10 days ago. GI consulted for worsening [...] file Gets together: Not on file Attends cheondoism service: Not on file Active member of [...] arm Patient Position: Lying Pulse: 86 Resp: 16 16 Temp: 36.6 ??C (97.9 ??F) 37.4 ??C [...] BILIDIR, BILITOT, ALT, PROT IMAGING: Reviewed in eD 04/01/2020 CT A/P IMPRESSION ?? 1. Distended [...] LEFT basilar focal atelectasis ENDOSCOPY: Reviewed in eD 10/2019 EGD Impression: ?- Endosonographic findings compatible ?with main duct IPMN; ERCP deferred; ?fluid sent for analysis. Recommendation: ?- Discharge patient to home. ?- Resume previous diet. ?- Await pathology results. ?- Discuss surgical referral pending ?path IMPRESSION: Linda Abel is a 74 y.o. PMHX breast cancer s/p mastectomy, main duct IPMN s/p Whipple with [id number] 10 days ago. GI consulted for worsening [...] M.D. Fellow in Gastroenterology and Hepatology Pager #[phone] 04/02/2020 Associated attestation - Ralf Urrutia MD [...] Ongoing (Interventions Implemented as Appropriate) 03/24/20 1801 04/01/202019 Coping/Psychosocial Plan Of Care Reviewed With -- [...] Outcome: Ongoing (Interventions Implemented as Appropriate) 03/24/20 181 Mutuality/Individual Preferences What Anxieties, Fears or Concerns [...] 10 Mental Status 0 Score 45 OTHER Mendez Fall Risk High Restraint Interventions [...] and scheduled Reglan given with no effect, MD aware. Soap nupur enema given with no [...] complicated by abdominal pain requiring a dilaudid DIRECTOR OF SCIENCE that was weaned off on 03/28. She [...] Diagnosis Date ??? Basal cell carcinoma 2009 [facility]-back ??? Breast cancer Meds: No current facility-administered [...] Inhaler ??? fluticasone propionate (FLONASE) 50 mcg/actuation [place], Suspension 1 spray daily. ??? Creon 24,000-76,000 [...] N/A 12/05/2019 Mammo Stereotactic Biopsy Left 12/05/2019 [facility] RAD MAMMOGRAPHY ??? MASTECTOMY Right with RT ??? PRO BX/REMV, LYMPH NODE, DEEP AXILL Left 12/20/2019 BIOPSY OR EXCISION OF LYMPH NODE(S), OPEN, DEEP AXILLARY NODE(S) (WRVU 6.43) performed by Susan Rivera MD at [facility] OSC ??? PRO COLONOSCOPY, DIAGNOSTIC 01/07/2014 COLONOSCOPY, DIAGNOSTIC performed by Izzy Johnson MD at [facility] ENDOSCOPY ??? PRO ENDOSCOPIC US EXAM, ESOPH N/A 11/15/2019 UPPER EUS- ENDOSCOPIC ULTRASOUND performed by Ralf Urrutia MD at [facility] ENDOSCOPY ??? PRO INTRAOP SENTINEL LYMPH ID W/DYE INJECTION Left 12/20/2019 INTRAOPERATIVE ID (MAPPING) SENTINEL LYMPH NODE,INCLUDES INJECTION (WRVU 2.5) performed by Susan Rivera MD at [facility] OSC ??? PRO MASTECTOMY, SIMPLE, COMPLETE Left 12/20/2019 MASTECTOMY, SIMPLE, COMPLETE (WRVU 15.85) performed by Susan Rivera MD at [facility] OSC ??? PRO OMENTAL FLAP, INTRA-ABDOMINAL 03/23/2020 @OMENTAL FLAP, INTRA-ABDOMINAL (WRVU 6.54) performed by Davian Carolina MD at [facility] MAIN OR ??? PRO UNLISTED PX PNCRS N/A 03/23/2020 ROBOTIC PANCREATECTOMY,WHIPPLE, PARTIAL GASTRECTOMY W/ PANCREATOJEJUNOSTOMY performed by Davian Carolina MD at [facility] MAIN OR Family History: Siblings: Sister with [...] MD Internal Medicine, PGY3 BETHANY Pager # [phone] Associated attestation - Nataly Leggett MD - [...] Had a medium size hard formed BM. Adeqnareshe UOP. Will continue to monitor. ?? PLAN [...] is low normal I have asked Gina PACHECO CDE to meet with her to provide [...] complicated by abdominal pain requiring a dilaudid DIRECTOR OF SCIENCE that was weaned off on 03/28. She [...] Inhaler ??? fluticasone propionate (FLONASE) 50 mcg/actuation [place], Suspension 1 spray daily. ??? Creon 24,000-76,000 [...] N/A 12/05/2019 Mammo Stereotactic Biopsy Left 12/05/2019 [facility] RAD MAMMOGRAPHY ??? MASTECTOMY Right with RT ??? PRO BX/REMV, LYMPH NODE, DEEP AXILL Left 12/20/2019 BIOPSY OR EXCISION OF LYMPH NODE(S), OPEN, DEEP AXILLARY NODE(S) (WRVU 6.43) performed by Susan Rivera MD at [facility] OSC ??? PRO COLONOSCOPY, DIAGNOSTIC 01/07/2014 COLONOSCOPY, DIAGNOSTIC performed by Izzy Johnson MD at [facility] ENDOSCOPY ??? PRO ENDOSCOPIC US EXAM, ESOPH N/A 11/15/2019 UPPER EUS- ENDOSCOPIC ULTRASOUND performed by Ralf Urrutia MD at [facility] ENDOSCOPY ??? PRO INTRAOP SENTINEL LYMPH ID W/DYE INJECTION Left 12/20/2019 INTRAOPERATIVE ID (MAPPING) SENTINEL LYMPH NODE,INCLUDES INJECTION (WRVU 2.5) performed by Susan Rivera MD at [facility] OSC ??? PRO MASTECTOMY, SIMPLE, COMPLETE Left 12/20/2019 MASTECTOMY, SIMPLE, COMPLETE (WRVU 15.85) performed by Susan Rivera MD at [facility] OSC ??? PRO OMENTAL FLAP, INTRA-ABDOMINAL 03/23/2020 @OMENTAL FLAP, INTRA-ABDOMINAL (WRVU 6.54) performed by Davian Carolina MD at [facility] MAIN OR ??? PRO UNLISTED PX PNCRS N/A 03/23/2020 ROBOTIC PANCREATECTOMY,WHIPPLE, PARTIAL GASTRECTOMY W/ PANCREATOJEJUNOSTOMY performed by Davian Carolina MD at [facility] MAIN OR Family History: Siblings: Sister with [...] no petechiae Laboratory: CBC: Recent Labs 03/30/20 01203/29/20 01203/28/20144 WBC 10.4* 6.8 6.9 HGB 12.0 11.3* 11.3* PLATELET 231 176 205 Chemistry: Recent Labs 03/30/20 0120 03/29/20 0230 03/28/20 0145 03/27/20 0320 03/26/20 014 NA 135 139 139 139 139 K [...] MD Internal Medicine, PGY3 BETHANY Pager # [phone] Associated attestation - Nataly Leggett MD - [...] EVALUATION: * Plan of Care - Mervin Grmies RN - 03/29/2020 2:48 AM EST OUTCOME EVALUATION NOTE: ?? OUTCOME SUMMARY: Pt pain 2-3/10 pain today, managed well with DIRECTOR OF SCIENCE. Pt tolerating clears w/o nausea or emesis. AUOP, no BM this shift. Pt bps 160-170s/90-100s overnight, md aware, given 2x labetalol per md orders. Pt resting between care. ?? PLAN MOVING FORWARD: Manage pain; wean DIRECTOR OF SCIENCE Monitor I&Os Encourage OOB, ambulation ?? INDIVIDUALIZED [...] reporting 3/10 pain today, managed well with DIRECTOR OF SCIENCE. NGT and KHRIS drain removed this morning [...] PLAN MOVING FORWARD: ?? Manage pain; wean DIRECTOR OF SCIENCE OOB activities; ROBF ?? INDIVIDUALIZED FALL PREVENTION [...] OUTCOME SUMMARY: ?? Pain well controlled with DIRECTOR OF SCIENCE this shift. VSS.Tolerating sips &??chips diet, no [...] fall risk factors per assessment: [current deficits]:?PICC, DIRECTOR OF SCIENCE, Pain, recent surgery, tubes/drains, generalized weakness ? [...] pain this shift, reporting good management with DIRECTOR OF SCIENCE. NGT clamped this morning by MD Carolina~1000, [...] PLAN MOVING FORWARD: ?? Manage pain; wean DIRECTOR OF SCIENCE OOB activities; ROBF ?? INDIVIDUALIZED FALL PREVENTION [...] OUTCOME SUMMARY: ?? Pain well controlled with DIRECTOR OF SCIENCE this shift. VSS.Tolerating sips &??chips diet, no [...] fall risk factors per assessment: [current deficits]:?PICC, DIRECTOR OF SCIENCE, Pain, recent surgery, tubes/drains, generalized weakness ? [...] minimal pain this shift, managed well with DIRECTOR OF SCIENCE. Pt went to CT scan this morning, [...] PLAN MOVING FORWARD: ?? Manage pain; wean DIRECTOR OF SCIENCE OOB activities; ROBF Wean O2 ?? INDIVIDUALIZED [...] Ongoing (Interventions Implemented as Appropriate) 03/24/20 1801 03/25/201999 Coping/Psychosocial Plan Of Care Reviewed With -- patient Plan of Care Review Progress progress toward functional goals as expected -- OUTCOME EVALUATION NOTE: OUTCOME SUMMARY: Pain well controlled with DIRECTOR OF SCIENCE this shift. VSS.Tolerating sips & chips diet, [...] risk factors per assessment: [current deficits]: PICC, DIRECTOR OF SCIENCE, Pain, recent surgery, tubes/drains, generalized weakness ?? [...] Conf Outcome: Ongoing (Interventions Implemented as Appropriate) 03/26/200 Interdisciplinary Rounds/Family Conf Participants patient;nursing * Consult [...] NOTE: OUTCOME SUMMARY: Pain well controlled with DIRECTOR OF SCIENCE. Patient tachycardic in the 110's this shift, [...] risk factors per assessment: [current deficits]: PICC, DIRECTOR OF SCIENCE, Pain, recent surgery, tubes/drains, generalized weakness Assistance [...] Outcome: Ongoing (Interventions Implemented as Appropriate) 03/24/20 181 Mutuality/Individual Preferences What Anxieties, Fears or Concerns Do You Have About Your Health or Care? I want everything to go okay What Questions Do You Have About Your Health or Care? None at this time What Information Would Help Us Give You More Personalized Care? None at this time Goal: Fall Prevention-Safe Patient Handling Outcome: Ongoing (Interventions Implemented as Appropriate) 03/24/20200403/25/20 0237 03/25/20 0459 Daily Care Interventions Self-Care Promotion -- -- independence encouraged Mendez Fall Risk History of Falling 0 -- -- Secondary Diagnosis 15 -- -- Ambulatory Aids 15 -- -- Intravenous Therapy/Heparin/Saline Lock 20 -- -- Gait/Transferring 10 -- -- Mental Status 0 -- -- Score 60 -- -- OTHER Mendez Fall Risk High -- -- Restraint Interventions [...] Review Outcome: Ongoing (Interventions Implemented as Appropriate) 03/24/201800 Coping/Psychosocial Plan Of Care Reviewed With patient [...] draining CYU adequately, -flatus/-BM, periorbital swelling noted, DIRECTOR OF SCIENCE controlling pain, down for PICC line d/t inadequate IV access/inability to draw labs d/t no IV/BP on R arm, double lumen PICC in place, C/D/I, MIVF, worked with PT/OT, pt resting comfortably between nursing care, bed in lowest position, call light within reach PLAN MOVING FORWARD: Increase mobilization Pain control/wean DIRECTOR OF SCIENCE Increase diet DC planning INDIVIDUALIZED FALL PREVENTION INTERVENTIONS: Patient-specific fall risk factors per assessment: [current deficits]: Impaired mobility, recent post-op, LDAs, narcotic medication, hospital environment Assistance [level of assistance required for transfers and ambulation]: 1 person assist with FWW Supervision [direct monitoring required during toileting and ADLs]: Eyes on hands on Surveillance [continuous indirect monitoring]: Jocelyn purposeful hourly rounding Patient-specific fall prevention interventions for sensory deficits provided, if applicable: [X] N/A * Plan of Care - Byron Branham RN - 03/24/2020 4:56 PM EST Problem: Health Knowledge, Opportunity to Enhance (Adult,NICU,,Obstetrics,Pediatric) Goal: Knowledgeable about Health Subject/Topic Patient will demonstrate the desired outcomes by discharge/transition of care. Outcome: Outcome (s) achieved Date Met: 03/24/20 Peripherally Inserted Central Catheter (PICC) Teaching Sheet Peripherally inserted central catheters (ecqr-jt-kunu) (PICC) are used when you need IV [...] can be set up via the nurse Insurance Inspector to help you. What are possible complications [...] Efficacy, Safety, Use, and Administration of [employer], [employer] 2006 * Plan of Care - [...] N/A 12/05/2019 Mammo Stereotactic Biopsy Left 12/05/2019 [facility] RAD MAMMOGRAPHY ??? MASTECTOMY Right with RT ??? PRO BX/REMV, LYMPH NODE, DEEP AXILL Left 12/20/2019 BIOPSY OR EXCISION OF LYMPH NODE(S), OPEN, DEEP AXILLARY NODE(S) (WRVU 6.43) performed by Susan Rivera MD at [facility] OSC ??? PRO COLONOSCOPY, DIAGNOSTIC 01/07/2014 COLONOSCOPY, DIAGNOSTIC performed by Izzy Johnson MD at [facility] ENDOSCOPY ??? PRO ENDOSCOPIC US EXAM, ESOPH N/A 11/15/2019 UPPER EUS- ENDOSCOPIC ULTRASOUND performed by Ralf Urrutia MD at [facility] ENDOSCOPY ??? PRO INTRAOP SENTINEL LYMPH ID W/DYE INJECTION Left 12/20/2019 INTRAOPERATIVE ID (MAPPING) SENTINEL LYMPH NODE,INCLUDES INJECTION (WRVU 2.5) performed by Susan Rivera MD at [facility] OSC ??? PRO MASTECTOMY, SIMPLE, COMPLETE Left 12/20/2019 MASTECTOMY, SIMPLE, COMPLETE (WRVU 15.85) performed by Susan Rivera MD at [facility] OSC Social History: Pt lives alone in a multi level home with 3 steps to enter. 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 Pain: Pushed DIRECTOR OF SCIENCE x 1, abdominal discomfort, Vital Signs: SpO2: [...] pt and answered all questions, spoke with admission discharge rn re: private room when possible, as pt [...] Therapy: (P) 25 PATRICIA JORDAN, PT Pager: [phone] Physical Therapy Inpatient Rehabilitation Department * Initial [...] Diagnosis Date ??? Basal cell carcinoma 2010 [facility]-back ??? Breast cancer Hospitalizations Within the Past [...] 90 days) Any patient receiving care at [facility] must abide by [place] law. The hierarchy [...] (i) The agent with financial power of workers compensation defense attorney or a conservator appointed in accordance [...] and a full flight to bedroom [address] [facility] [id number] Social & Family Supports/Community Resources: DALJIT Umanzor Extended Emergency Contact Information Primary Emergency [place]: [place] [address] [employer] Relation: Child Secondary Emergency Contact: [place] [address] [facility] Mobile Relation: Son/Vantlmkf-pk-nqg Behavioral [facility] History: Denies Other Pertinent/Service Specific Information: No Health/Prescription Coverage: Primary Insurance: MEDICARE Payor: MEDICARE / Plan: MEDICARE PART A & B / Product Type: *No Product type* / Secondary Insurance: [facility] Prescription Coverage: Medicare D Preferred Pharmacy: [facility] - [place], [place] - [address] [place] [id number] [facility] - [address] [facility] [address] Primary Care Provider: Zeny James APRN [phone] Patient/Caregiver Goals of Treatment: feel better Potential Needs for Transition of Care: Rehab/SNF: n/a Home Health: The patient has been provided a list of Home Health Agencies placed. Provided patient with [facility] Star Quality Rating for Home care. Patient requests referral to [facility]. For RN PHONE: [phone] FAX: [phone]. Expected date of discharge: 03/30. Referral routed to the Hydraulics Teacher for matching with agency/vendor and to provide any required information. DME: n/a Community Resources: No Transportation: Son Dialysis: n/a Anticipated Barriers to Discharge/Special Considerations: None Assessment: [facility] for RN routed and orders pended. Patient [...] transition of care planning. Alesha Casillas RN compliance director Pager: [phone] * Plan of Care - Ness Cummings RN - 03/24/2020 1:24 AM EST OUTCOME EVALUATION NOTE: OUTCOME SUMMARY: Patient arrived from PACU to room 210A at 2223 . A&O x4. VSS. Pain 09/24, managed with DIRECTOR OF SCIENCE and scheduled IV Tylenol. Frequent reminders given to use DIRECTOR OF SCIENCE. Remains on 3L NC over night. Subcutaneous [...] per assessment: [current deficits]: Recent surgery, pain, DIRECTOR OF SCIENCE, infusing PIV, general weakness Assistance [level of [...] Carolina MD - 03/23/2020 4:56 PM EST [facility] Operative Note Patient Name: Linda Abel : [id number] MR#: [id number] Case Date: 03/23/2020 Surgeon: Surgeon(s) and Role: * Davian Carolina MD - Primary Registered Nurse Gold Nib Grinder: Whitney Rangel RN Preoperative diagnosis: IPMN Postoperative diagnosis: IPMN Procedure(s) (LRB): ROBOTIC PANCREATECTOMY,WHIPPLE, PARTIAL GASTRECTOMY W/ PANCREATOJEJUNOSTOMY (N/A) MODIFIER ROBOT,MALLORYI XI (N/A) @OMENTAL FLAP, INTRA-ABDOMINAL (WRVU 6.54) [...] margin, pancreatic neck margin- FROZEN Blue-vascular groove\ [place]-SMA [id number] IPMN Head of pancreas, antrum, duodenum excision YES, Please perform frozen section No 03/23/2020 12:38 PM Number of tissue samples (in container) 1 Time specimen removed from patient: 12:33 PM SPECIMEN TO PATHOLOGY Gallbladder and omentum [id number] IPMN Gallbladder and omentum excision No 03/23/2020 12:44 PM Time specimen removed from patient: 12:43 PM Number of tissue samples (in container) 1 Biospecimen to store? No PATHOLOGY ORDER UPDATE Gallbladder only 03/23/2020 12:51 PM Additional information: Correction Enter requested changes: Gallbladder eD-H Order Id number [id number] PATHOLOGY ORDER UPDATE Head of pancreas, antrum, duodenum & OMENTUM 03/23/2020 12:51 PM Additional information: Additional Info Enter requested changes: omentum eD-H Order Id number [id number] Drains: Drain/Device Site 12/20/19 1301 Left breast [...] we placed the 15 mm laparoscopic assistant hairstylist port in the right mid rectus position [...] the robotic portion of the operation. The DeviceAuthorityi Xi patient cart was brought in and [...] The proximal jejunum was divided using the [place] stapler (white load). The specimen side of [...] was divided using 2 firings of the [place] stapler (green load and a blue load). [...] lateral extent exposing both the vein of [place] superiorly and the first jejunal branch inferiorly. [...] then ligated and divided the vein of [place] across metal clips at its insertion with [...] and extended the 15 mm lap assistant hairstylist port for approximately an additional 3 cm. [...] extracted through the 15 mm laparoscopic assistant hairstylist port via a Endo Catch specimen retrieval [...] complete we turned our attention to the hoyi-sh-jqrrmw stitches. An tiny enterotomy was created immediately [...] a 3-0V lock stitch as a running [place] stitch. A second layer of running Lembert type stitches was placed on the anterior with 2-0 Silk an outer layer to complete the anastomosis. The anastomosis was noted to sit nicely without torsion or outflow obstruction at the efferent jejunal limb. With the reconstruction complete we introduced a 19 Bahraini Darius drain via the most right lateral [...] new suction and cautery at closure: No Bridiwhml-pirqusnwt-xgqbfmxzcc abdominal cavity wash: No Cacdrqpro-mzsyuelyg-nprzuikclm wound wash: No Attestation: Case Date: 03/23/2020 I performed this procedure without the involvement of a resident. DAVIAN CAROLINA MD 03/23/2020 documented in this encounter Plan of Treatment Upcoming Encounters Date Type Department Care Team (Late st Contact Info) Description 11/02/2023 1:00 PM EDT Office Visit Hematology/Oncology at [address] [phone] Mary Nails APRN [address] [place] [address] [place] [address] 11/02/2023 1:30 PM EDT Infusion Hematology Oncology at [address] [phone] Scheduled Referrals Name Type Priority Associated Diagnoses [...] 3:50 AM EST DIFFERENTIAL, AUTOMATED Routine 04/07/20 20 3:50 AM EST HC CBC,PLT & AUTO [...] 3:26 AM EST DIFFERENTIAL, AUTOMATED Routine 04/04/20 3:26 AM EST HC CBC,PLT & AUTO [...] 2:50 AM EST DIFFERENTIAL, AUTOMATED Routine 04/03/20 20 2:50 AM EST HC CBC,PLT & AUTO [...] 5:17 PM EST Upper GI Endoscopy, Diagnostic ([id number]) 04/02/2020 3:17 PM EST Post Whipple UPPER [...] 4:20 AM EST DIFFERENTIAL, AUTOMATED Routine 04/01/20 4:20 AM EST HC CBC,PLT & AUTO [...] 1:20 AM EST DIFFERENTIAL, AUTOMATED Routine 03/30/20 20 1:20 AM EST HC CBC,PLT & [...] 1:20 AM EST DIFFERENTIAL, AUTOMATED Routine 03/29/20 1:20 AM EST HC CBC,PLT & AUTO [...] 1:45 AM EST DIFFERENTIAL, AUTOMATED Routine 03/28/20 1:45 AM EST HC CBC,PLT & AUTO [...] 3:20 AM EST DIFFERENTIAL, AUTOMATED Routine 03/27/20 20 3:20 AM EST HC CBC,PLT & AUTO [...] TO PATHOLOGY Routine 03/23/2020 9:25 AM EST ABORH RECHECK STATUS Routine 03/23/2020 7:24 AM [...] CHEMISTRY ORDERA BLES [facility] [place] [address] * (ABNORMAL) Comprehensive metabolic panel (non-fasting) (09/28/2020 [...] CHEMISTRY ORDERA BLES [facility] [place] [address] * POCT Glucose (04/11/2020 12:02 PM EST) POC Glucose 150 65 - 199 mg/dL [facility] Comment: Supplemental ranges: <140 mg/dL before meals <180 mg/dL all other times of the day Blood specimen (specimen) 04/11/2020 12:02 PM EST 04/11/2020 12:02 PM EST Davian Carolina MD POINT OF CARE TEST ORDERABLES Performing Organization Address City/[facility]/ZIP Co de Phone Number [facility] [place] [address] * POCT Glucose (04/11/2020 7:43 AM EST) Pathologist [facility] POC Glucose 162 65 - 199 mg/dL [facility] Comment: Supplemental ranges: <140 mg/dL before meals <180 mg/dL all other times of the day Blood specimen (specimen) 04/11/2020 7:43 AM EST 04/11/2020 7:43 AM EST Davian Carolina MD POINT OF CARE TEST ORDERABLES [facility] [place] [address] * (ABNORMAL) Differential, Automated (04/11/2020 5:35 AM EST) [facility] Neutrophils % 75.6 % [facility] Neutr Abs (ANC) 9.98(H) 1.70 - 6.10 x10(3)/mc L [facility] Lymphocytes % 9.9 % [facility] Lymphocytes Abs 1.3 0.9 - 3.2 x10(3)/mc L [facility] Monocytes % 7.6 % [facility] Monocyte Abs 1.0(H) 0.3 - 0.9 x10(3)/mc L [facility] Eosinophils % 3.9 % [facility] Eosinophils Abs 0.5(H) 0.0 - 0.4 x10(3)/mc L [facility] Basophils % 0.7 % [facility] Basophils Abs 0.1 0.0 - 0.1 x10(3)/ L [facility] Immature Gran % 2.30 % [facility] Comment: Immature granulocytes(IG's)percentage and absolute count will include metamyelocytes, myelocytes, and promyelocytes. Blood smears from CBCs yielding IG's will be scanned manually for concordance. If this scan disagrees with the automated IG or if promyelocytes are noted, a manual differential will be performed. Nory Gran Abs 0.31(H) 0.00 - 0.04 x10(3)/ L [facility] Blood specimen (specimen) 04/11/2020 5:35 AM EST 04/11/2020 5:43 AM EST Narrative Resulting Agency Comment Spec In Lab Anjelica Jordan APRN HEMATOLOGY ORDER MAGAN [facility] [place] [address] * (ABNORMAL) Hemogram (04/11/2020 5:35 AM EST) WBC 13.2(H) 4.0 - 9.5 x10(3)/[facility] LABORATORY RBC 3.22(L) 4.00 - 5.21 x10(6)/[facility] LABORATORY Hemoglobin 9.7(L) 11.7 - 15.5 gm/dL [facility] Hematocrit 29.4(L) 35.7 - 45.8 % [facility] MCV 91.3 82.6 - 94.4 fL [facility] MCH 30.1 27.1 - 32.0 pg [facility] MCHC 33.0 31.7 - 35.0 gm/dL [facility] Platelets 371(H) 145 - 357 x10(3)/[facility] RDWSD 44.1 37.0 - 46.0 fL [facility] RDWCV 13.2 11.5 - 14.1 % [facility] MPV 10.1 7.6 - 12.9 fL [facility] nRBC % Auto 0.0 % [facility] nRBC Abs Auto 0.000 0.000 - 0.000 x10(3)/mcL [facility] Blood specimen (specimen) 04/11/2020 5:35 AM EST 04/11/2020 5:43 AM EST Narrative Resulting Agency Comment Spec In Lab Anjelica Jordan APRN HEMATOLOGY ORDER MAGAN Performing Organization Address City/[facility] Co de Phone Number [facility] [place] [address] * Phosphorus (04/11/2020 5:35 AM EST) Phosphorus 3.4 2.5 - 4.5 mg/dL [facility] Blood specimen (specimen) 04/11/2020 5:35 AM EST 04/11/2020 5:43 AM EST Narrative Resulting Agency Comment Spec In Lab Anjelica Jordan APRN CHEMISTRY ORDERA BLES Performing Organization Address [facility] Co de Phone Number [facility] [place] [address] * Magnesium (04/11/2020 5:35 AM EST) Magnesium 0.69 0.69 - 1.07 mmol/L [facility] Blood specimen (specimen) 04/11/2020 5:35 AM EST 04/11/2020 5:43 AM EST Narrative Resulting Agency Comment Spec In Lab Anjelica Jordan FIELD PROFESSIONAL CHEMISTRY ORDERA BLES Performing Organization Address [facility] Co de Phone Number [facility] [place] [address] * (ABNORMAL) Basic Metabolic Panel (non-fasting) (04/11/2020 5:35 AM EST) Glucose Lvl 165 65 - 199 mg/dL [...] CHEMISTRY ORDERA BLES [facility] [place] [address] * POCT Glucose (04/11/2020 3:37 AM EST) POC Glucose 184 65 - 199 mg/dL [facility] Comment: Supplemental ranges: <140 mg/dL before meals <180 mg/dL all other times of the day Blood specimen (specimen) 04/11/2020 3:37 AM EST 04/11/2020 3:37 AM EST Davian Carolina MD POINT OF CARE TEST ORDERABLES [facility] [place] [address] * POCT Glucose (04/11/2020 12:32 AM EST) POC Glucose 181 65 - 199 mg/dL [facility] Comment: Supplemental ranges: <140 mg/dL before meals <180 mg/dL all other times of the day Blood specimen (specimen) 04/11/2020 12:32 AM EST 04/11/2020 12:32 AM EST Davian Carolina MD POINT OF CARE TEST ORDERABLES Performing Organization Address City/[facility]/ZIP Co de Phone Number [facility] [place] [address] * POCT Glucose (04/10/2020 8:55 PM EST) POC Glucose 174 65 - 199 mg/dL [facility] Comment: Supplemental ranges: <140 mg/dL before meals <180 mg/dL all other times of the day Blood specimen (specimen) 04/10/2020 8:55 PM EST 04/10/2020 8:55 PM EST Davian Carolina MD POINT OF CARE TEST ORDERABLES Performing Organization Address City/[facility]/ZIP Co de Phone Number [facility] [place] [address] * POCT Glucose (04/10/2020 5:32 PM EST) POC Glucose 168 65 - 199 mg/dL [facility] Comment: Supplemental ranges: <140 mg/dL before meals <180 mg/dL all other times of the day Blood specimen (specimen) 04/10/2020 5:32 PM EST 04/10/2020 5:32 PM EST Davian Carolina MD POINT OF CARE TEST ORDERABLES Performing Organization Address [facility] Co de Phone Number [facility] [place] [address] * POCT Glucose (04/10/2020 1:22 PM EST) POC Glucose 167 65 - 199 mg/dL [facility] Comment: Supplemental ranges: <140 mg/dL before meals <180 mg/dL all other times of the day Blood specimen (specimen) 04/10/2020 1:22 PM EST 04/10/2020 1:22 PM EST Davian Carolina MD POINT OF CARE TEST ORDERABLES Performing Organization Address [facility] de Phone Number [facility] [place] [address] * XR PICC Placement Over 5 Years [...] and agree with the findings, Maria Esther Stallworth MD at 04/10/2020 12:18 PM Thank you for letting us participate in the care of this patient. For questions regarding this report, please contact the number below. ? Electronically signed by: Maria Esther Stallworth MD, [facility] ([phone]), at 04/10/2020 12:18 PM Narrative 04/10/2020 12:18 [...] the lower SVC. Procedure Note Maria Esther Stallworth MD - 04/10/2020 EXAMINATION: XR PICC PLACEMENT [...] interpretationand agree with the findings, Maria Esther Stallworth MD at 04/10/2020 12:18 PM Thank you for letting us participate in the care of this patient. Forquestions regarding this report, please contact the number below. Electronically signed by: Maria Esther Stallworth MD, [facility]([phone]), at 04/10/2020 12:18 PM Davian Carolina MD IMG FLUORO ORDERAB LES * PICC Line Rewire Is PICC procedure required PRIOR to patients discharge? Yes (04/10/2020 11:10 AM EST) Narrative Sharon Alfaro RN - 04/10/2020 11:10 AM EST Sharon Alfaro RN ? 04/10/2020 11:55 AM PICC/Midline Insertion Procedure [...] to the planned procedure. Hand Hygiene: The customer relations consultant did perform hand hygiene prior to line insertion. Catheter type: PICC Lot number: [id number] Procedure Technique: Skin was prepped with chlorhexidine. [...] POCT Glucose (04/10/2020 8:08 AM EST) Pathologist [facility] POC Glucose 220(H) 65 - 199 mg/dL [facility] Comment: Supplemental ranges: <140 mg/dL before meals <180 mg/dL all other times of the day Blood specimen (specimen) 04/10/2020 8:08 AM EST 04/10/2020 8:08 AM EST Davian Carolina MD POINT OF CARE TEST ORDERABLES Performing Organization Address City/State/[facility] Co de Phone Number [facility] [place] [address] * (ABNORMAL) Differential, Automated (04/10/2020 3:14 AM EST) [facility] Neutrophils % 64.4 % [facility] Neutr Abs (ANC) 8.46(H) 1.70 - 6.10 x10(3)/[facility] LABORATORY Lymphocytes % 14.2 % [facility] Lymphocytes Abs 1.9 0.9 - 3.2 x10(3)/[facility] LABORATORY Monocytes % 9.8 % [facility] Monocyte Abs 1.3(H) 0.3 - 0.9 x10(3)/[facility] LABORATORY Eosinophils % 7.2 % [facility] Eosinophils Abs 0.9(H) 0.0 - 0.4 x10(3)/[facility] LABORATORY Basophils % 0.8 % [facility] Basophils Abs 0.1 0.0 - 0.1 x10(3)/[facility] LABORATORY Immature Gran % 3.60 % [facility] Comment: Immature granulocytes(IG's)percentage and absolute count will include metamyelocytes, myelocytes, and promyelocytes. Blood smears from CBCs yielding IG's will be scanned manually for concordance. If this scan disagrees with the automated IG or if promyelocytes are noted, a manual differential will be performed. Nory Gran Abs 0.47(H) 0.00 - 0.04 x10(3)/ L [facility] Blood specimen (specimen) 04/10/2020 3:14 AM EST 04/10/2020 3:21 AM EST Narrative Resulting Agency Comment Spec In Lab Anjelica Jordan APRN HEMATOLOGY ORDER MAGAN [facility] [place] [address] * (ABNORMAL) Hemogram (04/10/2020 3:14 AM EST) WBC 13.1(H) 4.0 - 9.5 x10(3)/[facility] LABORATORY RBC 3.17(L) 4.00 - 5.21 x10(6)/[facility] LABORATORY Hemoglobin 9.6(L) 11.7 - 15.5 gm/dL [facility] Hematocrit 28.6(L) 35.7 - 45.8 % [facility] MCV 90.2 82.6 - 94.4 fL [facility] MCH 30.3 27.1 - 32.0 pg [facility] MCHC 33.6 31.7 - 35.0 gm/dL [facility] Platelets 429(H) 145 - 357 x10(3)/[facility] LABORATORY RDWSD 42.9 37.0 - 46.0 [facility] LABORATORY RDWCV 13.0 11.5 - 14.1 % [facility] MPV 10.2 7.6 - 12.9 [facility] LABORATORY nRBC % Auto 0.0 % [facility] nRBC Abs Auto 0.000 0.000 - 0.000 x10(3)/[facility] LABORATORY Blood specimen (specimen) 04/10/2020 3:14 AM EST 04/10/2020 3:21 AM EST Narrative Resulting Agency Comment Spec In Lab Anjelica E Nikki FIELD PROFESSIONAL HEMATOLOGY ORDER MAGAN Performing Organization Address [facility] Co de Phone Number [facility] [place] [address] * Phosphorus (04/10/2020 3:14 AM EST) [facility] Phosphorus 3.4 2.5 - 4.5 mg/dL [facility] Blood specimen (specimen) 04/10/2020 3:14 AM EST 04/10/2020 3:21 AM EST Narrative Resulting Agency Comment Spec In Lab Anjelica Jordan FIELD PROFESSIONAL CHEMISTRY ORDERA BLES Performing Organization Address [facility] Co de Phone Number [facility] [place] [address] * (ABNORMAL) Magnesium (04/10/2020 3:14 AM EST) [facility] Magnesium 0.64(L) 0.69 - 1.07 mmol/L [facility] Blood specimen (specimen) 04/10/2020 3:14 AM EST 04/10/2020 3:21 AM EST Narrative Resulting Agency Comment Spec In Lab Anjelica Jordan APRN CHEMISTRY ORDERA BLES Performing Organization Address [facility] de Phone Number [facility] [place] [address] * (ABNORMAL) Basic Metabolic Panel (non-fasting) (04/10/2020 3:14 AM EST) [facility] Glucose Lvl 156 65 - 199 mg/dL [...] APRN CHEMISTRY ORDERA BLES Performing Organization Address City/[facility]/ZIP Co de Phone Number [facility] [place] [address] * POCT Glucose (04/10/2020 3:09 AM EST) POC Glucose 155 65 - 199 mg/dL [facility] Comment: Supplemental ranges: <140 mg/dL before meals <180 mg/dL all other times of the day Blood specimen (specimen) 04/10/2020 3:09 AM EST 04/10/2020 3:09 AM EST Davian Carolina MD POINT OF CARE TEST ORDERABLES [facility] [place] [address] * POCT Glucose (04/10/2020 12:45 AM EST) POC Glucose 179 65 - 199 mg/dL [facility] Comment: Supplemental ranges: <140 mg/dL before meals <180 mg/dL all other times of the day Blood specimen (specimen) 04/10/2020 12:45 AM EST 04/10/2020 12:45 AM EST Davian Carolina MD POINT OF CARE TEST ORDERABLES Performing Organization Address City/[facility]/ZIP Co de Phone Number [facility] [place] [address] * POCT Glucose (04/09/2020 8:11 PM EST) POC Glucose 184 65 - 199 mg/dL [facility] Comment: Supplemental ranges: <140 mg/dL before meals <180 mg/dL all other times of the day Blood specimen (specimen) 04/09/2020 8:11 PM EST 04/09/2020 8:11 PM EST Davian Carolina MD POINT OF CARE TEST ORDERABLES Performing Organization Address City/[facility]/ZIP Co de Phone Number [facility] [place] [address] * POCT Glucose (04/09/2020 4:59 PM EST) POC Glucose 167 65 - 199 mg/dL [facility] Comment: Supplemental ranges: <140 mg/dL before meals <180 mg/dL all other times of the day Blood specimen (specimen) 04/09/2020 4:59 PM EST 04/09/2020 4:59 PM EST Davian Carolina MD POINT OF CARE TEST ORDERABLES Performing Organization Address City/[facility]/ZIP Co de Phone Number [facility] [place] [address] * POCT Glucose (04/09/2020 1:16 PM EST) POC Glucose 180 65 - 199 mg/dL [facility] Comment: Supplemental ranges: <140 mg/dL before meals <180 mg/dL all other times of the day Blood specimen (specimen) 04/09/2020 1:16 PM EST 04/09/2020 1:16 PM EST Davian Carolina MD POINT OF CARE TEST ORDERABLES [facility] [place] [address] * POCT Glucose (04/09/2020 8:05 AM EST) POC Glucose 181 65 - 199 mg/dL [facility] Comment: Supplemental ranges: <140 mg/dL before meals <180 mg/dL all other times of the day Blood specimen (specimen) 04/09/2020 8:05 AM EST 04/09/2020 8:05 AM EST Davian Carolina MD POINT OF CARE TEST ORDERABLES Performing Organization Address City/[facility]/ZIP Co de Phone Number [facility] [place] [address] * POCT Glucose (04/09/2020 5:18 AM EST) POC Glucose 145 65 - 199 mg/dL [facility] Comment: Supplemental ranges: <140 mg/dL before meals <180 mg/dL all other times of the day Blood specimen (specimen) 04/09/2020 5:18 AM EST 04/09/2020 5:18 AM EST Davian Carolina MD POINT OF CARE TEST ORDERABLES Performing Organization Address City/[facility]/ZIP Co de Phone Number [facility] [place] [address] * POCT Glucose (04/09/2020 12:52 AM EST) POC Glucose 169 65 - 199 mg/dL [facility] Comment: Supplemental ranges: <140 mg/dL before meals <180 mg/dL all other times of the day Blood specimen (specimen) 04/09/2020 12:52 AM EST 04/09/2020 12:52 AM EST Davian Carolina MD POINT OF CARE TEST ORDERABLES [facility] [place] [address] * (ABNORMAL) Differential, Automated (04/09/2020 12:30 AM EST) Neutrophils % 62.3 % [facility] Neutr Abs (ANC) 8.42(H) 1.70 - 6.10 x10(3)/[facility] LABORATORY Lymphocytes % 13.7 % [facility] Lymphocytes Abs 1.8 0.9 - 3.2 x10(3)/[facility] LABORATORY Monocytes % 11.0 % [facility] Monocyte Abs 1.5(H) 0.3 - 0.9 x10(3)/[facility] LABORATORY Eosinophils % 7.2 % [facility] Eosinophils Abs 1.0(H) 0.0 - 0.4 x10(3)/[facility] LABORATORY Basophils % 0.9 % [facility] Basophils Abs 0.1 0.0 - 0.1 x10(3)/[facility] LABORATORY Immature Gran % 4.90 % [facility] Comment: Immature granulocytes(IG's)percentage and absolute count will include metamyelocytes, myelocytes, and promyelocytes. Blood smears from CBCs yielding IG's will be scanned manually for concordance. If this scan disagrees with the automated IG or if promyelocytes are noted, a manual differential will be performed. Nory Gran Abs 0.66(H) 0.00 - 0.04 x10(3)/[facility] LABORATORY Blood specimen (specimen) 04/09/2020 12:30 AM EST 04/09/2020 1:16 AM EST Narrative Resulting Agency Comment Spec In Lab Anjelica Jrodan APRN HEMATOLOGY ORDER MAGAN Performing Organization Address City/[facility]/ZIP Co de Phone Number [facility] [place] [address] * (ABNORMAL) Hemogram (04/09/2020 12:30 AM EST) WBC 13.5(H) 4.0 - 9.5 x10(3)/[facility] LABORATORY RBC 3.38(L) 4.00 - 5.21 x10(6)/[facility] LABORATORY Hemoglobin 10.1(L) 11.7 - 15.5 gm/dL [facility] Hematocrit 30.4(L) 35.7 - 45.8 % [facility] MCV 89.9 82.6 - 94.4 fL [facility] MCH 29.9 27.1 - 32.0 pg [facility] MCHC 33.2 31.7 - 35.0 gm/dL [facility] Platelets 426(H) 145 - 357 x10(3)/[facility] LABORATORY RDWSD 43.6 37.0 - 46.0 [facility] LABORATORY RDWCV 13.1 11.5 - 14.1 % [facility] MPV 9.9 7.6 - 12.9 [facility] LABORATORY nRBC % Auto 0.0 % [facility] nRBC Abs Auto 0.000 0.000 - 0.000 x10(3)/[facility] LABORATORY Blood specimen (specimen) 04/09/2020 12:30 AM EST 04/09/2020 1:16 AM EST Narrative Resulting Agency Comment Spec In Lab Anjelica Jordan APRN HEMATOLOGY ORDER MAGAN Performing Organization Address City/[facility]/ZIP Co de Phone Number [facility] [place] [address] * Phosphorus (04/09/2020 12:30 AM EST) Phosphorus 2.7 2.5 - 4.5 mg/dL [facility] Blood specimen (specimen) 04/09/2020 12:30 AM EST 04/09/2020 1:16 AM EST Narrative Resulting Agency Comment Spec In Lab Anjelica Jordan FIELD PROFESSIONAL CHEMISTRY ORDERA BLES Performing Organization Address [facility]/ZIP Co de Phone Number [facility] [place] [address] * Magnesium (04/09/2020 12:30 AM EST) Pathologist [facility] Magnesium 0.78 0.69 - 1.07 mmol/L [facility] Blood specimen (specimen) 04/09/2020 12:30 AM EST 04/09/2020 1:16 AM EST Narrative Resulting Agency Comment Spec In Lab Anjelica Jordan FIELD PROFESSIONAL CHEMISTRY ORDERA BLES Performing Organization Address [facility]/ZIP Co de Phone Number [facility] [place] [address] * (ABNORMAL) Basic Metabolic Panel (non-fasting) (04/09/2020 12:30 AM EST) Pathologist [facility] Glucose Lvl 157 65 - 199 mg/dL [...] APRN CHEMISTRY ORDERA BLES Performing Organization Address City/[facility]/ZIP Co de Phone Number [facility] [place] [address] * POCT Glucose (04/08/2020 9:03 PM EST) POC Glucose 169 65 - 199 mg/dL [facility] Comment: Supplemental ranges: <140 mg/dL before meals <180 mg/dL all other times of the day Blood specimen (specimen) 04/08/2020 9:03 PM EST 04/08/2020 9:03 PM EST Davian Carolina MD POINT OF CARE TEST ORDERABLES Performing Organization Address City/[facility]/ZIP Co de Phone Number [facility] [place] [address] * C. Difficile Screen (04/08/2020 5:52 PM EST) C Diff Screen Negative Negative [facility] Comment: Ag/Tox Neg C. diff?? Negative [...] - GEN ERAL ORDERABLES Performing Organization Address [facility] Co de Phone Number [facility] [place] [address] * POCT Glucose (04/08/2020 3:42 PM EST) POC Glucose 127 65 - 199 mg/dL [facility] Comment: Supplemental ranges: <140 mg/dL before meals <180 mg/dL all other times of the day Blood specimen (specimen) 04/08/2020 3:42 PM EST 04/08/2020 3:42 PM EST Davian Carolina MD POINT OF CARE TEST ORDERABLES Performing Organization Address [facility] Co de Phone Number [facility] [place] [address] * POCT Glucose (04/08/2020 12:31 PM EST) POC Glucose 167 65 - 199 mg/dL [facility] Comment: Supplemental ranges: <140 mg/dL before meals <180 mg/dL all other times of the day Blood specimen (specimen) 04/08/2020 12:31 PM EST 04/08/2020 12:31 PM EST Davian Carolina MD POINT OF CARE TEST ORDERABLES Performing Organization Address City/[facility] Co de Phone Number [facility] [place] [address] * POCT Glucose (04/08/2020 7:28 AM EST) Pathologist [facility] POC Glucose 199 65 - 199 mg/dL [facility] Comment: Supplemental ranges: <140 mg/dL before meals <180 mg/dL all other times of the day Blood specimen (specimen) 04/08/2020 7:28 AM EST 04/08/2020 7:28 AM EST Davian Carolina MD POINT OF CARE TEST ORDERABLES [facility] [place] [address] * POCT Glucose (04/08/2020 3:25 AM EST) [facility] POC Glucose 146 65 - 199 mg/dL [facility] Comment: Supplemental ranges: <140 mg/dL before meals <180 mg/dL all other times of the day Blood specimen (specimen) 04/08/2020 3:25 AM EST 04/08/2020 3:25 AM EST Davian Carolina MD POINT OF CARE TEST ORDERABLES Performing Organization Address City/[facility] Co de Phone Number [facility] [place] [address] * (ABNORMAL) Differential, Automated (04/08/2020 12:30 AM EST) [facility] Neutrophils % 69.8 % [facility] Neutr Abs (ANC) 11.23(H) 1.70 - 6.10 x10(3)/mc L [facility] Lymphocytes % 10.5 % [facility] Lymphocytes Abs 1.7 0.9 - 3.2 x10(3)/mc L [facility] Monocytes % 11.2 % [facility] Monocyte Abs 1.8(H) 0.3 - 0.9 x10(3)/mc L [facility] Eosinophils % 4.0 % [facility] Eosinophils Abs 0.6(H) 0.0 - 0.4 x10(3)/mc L [facility] Basophils % 0.6 % [facility] Basophils Abs 0.1 0.0 - 0.1 x10(3)/[facility] LABORATORY Immature Gran % 3.90 % [facility] Comment: Immature granulocytes(IG's)percentage and absolute count will include metamyelocytes, myelocytes, and promyelocytes. Blood smears from CBCs yielding IG's will be scanned manually for concordance. If this scan disagrees with the automated IG or if promyelocytes are noted, a manual differential will be performed. Nory Gran Abs 0.63(H) 0.00 - 0.04 x10(3)/[facility] LABORATORY Blood specimen (specimen) 04/08/2020 12:30 AM EST 04/08/2020 12:38 AM EST Narrative Resulting Agency Comment Spec In Lab Anjelica Jordan APRN HEMATOLOGY ORDER MAGAN Performing Organization Address City/State/[facility] Co de Phone Number [facility] [place] [address] * (ABNORMAL) Hemogram (04/08/2020 12:30 AM EST) WBC 16.1(H) 4.0 - 9.5 x10(3)/[facility] LABORATORY RBC 3.24(L) 4.00 - 5.21 x10(6)/[facility] LABORATORY Hemoglobin 9.8(L) 11.7 - 15.5 gm/dL [facility] Hematocrit 28.6(L) 35.7 - 45.8 % [facility] MCV 88.3 82.6 - 94.4 fL [facility] MCH 30.2 27.1 - 32.0 pg [facility] MCHC 34.3 31.7 - 35.0 gm/dL [facility] Platelets 477(H) 145 - 357 x10(3)/[facility] LABORATORY RDWSD 43.0 37.0 - 46.0 fL [facility] RDWCV 13.2 11.5 - 14.1 % [facility] MPV 10.0 7.6 - 12.9 fL [facility] nRBC % Auto 0.0 % [facility] nRBC Abs Auto 0.000 0.000 - 0.000 x10(3)/mcL [facility] Blood specimen (specimen) 04/08/2020 12:30 AM EST 04/08/2020 12:38 AM EST Narrative Resulting Agency Comment Spec In Lab Anjelica Jordan APRN HEMATOLOGY ORDER MAGAN Performing Organization Address [facility] Co de Phone Number [facility] [place] [address] * Phosphorus (04/08/2020 12:30 AM EST) Phosphorus 3.1 2.5 - 4.5 mg/dL [facility] Blood specimen (specimen) 04/08/2020 12:30 AM EST 04/08/2020 12:38 AM EST Narrative Resulting Agency Comment Spec In Lab Anjelica Jordan APRN CHEMISTRY ORDERA BLES Performing Organization Address [facility] Co de Phone Number [facility] [place] [address] * Magnesium (04/08/2020 12:30 AM EST) Magnesium 0.69 0.69 - 1.07 mmol/L [facility] Blood specimen (specimen) 04/08/2020 12:30 AM EST 04/08/2020 12:38 AM EST Narrative Resulting Agency Comment Spec In Lab Anjelica Jordan APRN CHEMISTRY ORDERA BLES Performing Organization Address [facility] Co de Phone Number [facility] [place] [address] * (ABNORMAL) Basic Metabolic Panel (non-fasting) (04/08/2020 [...] mg/dL [facility] Estimated GFR 115 >=60 [...] CHEMISTRY ORDERA BLES [facility] [place] [id number] * POCT Glucose (04/08/2020 12:06 AM EST) POC Glucose 152 65 - 199 mg/dL [facility] Comment: Supplemental ranges: <140 mg/dL before meals <180 mg/dL all other times of the day Blood specimen (specimen) 04/08/2020 12:06 AM EST 04/08/2020 12:06 AM EST Davian Carolina MD POINT OF CARE TEST ORDERABLES [facility] [place] [address] * POCT Glucose (04/07/2020 7:42 PM EST) POC Glucose 137 65 - 199 mg/dL [facility] Comment: Supplemental ranges: <140 mg/dL before meals <180 mg/dL all other times of the day Blood specimen (specimen) 04/07/2020 7:42 PM EST 04/07/2020 7:42 PM EST Davian Carolina MD POINT OF CARE TEST ORDERABLES Performing Organization Address City/[facility]/ZIP Co de Phone Number [facility] [place] [address] * POCT Glucose (04/07/2020 3:46 PM EST) POC Glucose 148 65 - 199 mg/dL [facility] Comment: Supplemental ranges: <140 mg/dL before meals <180 mg/dL all other times of the day Blood specimen (specimen) 04/07/2020 3:46 PM EST 04/07/2020 3:46 PM EST Davian Carolina MD POINT OF CARE TEST ORDERABLES Performing Organization Address City/[facility]/ZIP Co de Phone Number [facility] [place] [address] * POCT Glucose (04/07/2020 11:18 AM EST) [facility] POC Glucose 154 65 - 199 mg/dL [facility] Comment: Supplemental ranges: <140 mg/dL before meals <180 mg/dL all other times of the day Blood specimen (specimen) 04/07/2020 11:18 AM EST 04/07/2020 11:18 AM EST Davian Carolina MD POINT OF CARE TEST ORDERABLES Performing Organization Address City/[facility] Co de Phone Number [facility] [place] [address] * POCT Glucose (04/07/2020 7:32 AM EST) [facility] POC Glucose 138 65 - 199 mg/dL [facility] Comment: Supplemental ranges: <140 mg/dL before meals <180 mg/dL all other times of the day Blood specimen (specimen) 04/07/2020 7:32 AM EST 04/07/2020 7:32 AM EST Davian Carolina MD POINT OF CARE TEST ORDERABLES Performing Organization Address City/[facility] Co de Phone Number [facility] [place] [address] * (ABNORMAL) Differential, Automated (04/07/2020 3:50 AM EST) [facility] Neutrophils % 66.9 % [facility] Neutr Abs (ANC) 9.01(H) 1.70 - 6.10 x10(3)/ L [facility] Lymphocytes % 10.8 % [facility] Lymphocytes Abs 1.5 0.9 - 3.2 x10(3)/[facility] LABORATORY Monocytes % 12.5 % [facility] Monocyte Abs 1.7(H) 0.3 - 0.9 x10(3)/[facility] LABORATORY Eosinophils % 4.8 % [facility] Eosinophils Abs 0.6(H) 0.0 - 0.4 x10(3)/ L [facility] Basophils % 0.9 % [facility] Basophils Abs 0.1 0.0 - 0.1 x10(3)/[facility] LABORATORY Immature Gran % 4.10 % [facility] Comment: Immature granulocytes(IG's)percentage and absolute count will include metamyelocytes, myelocytes, and promyelocytes. Blood smears from CBCs yielding IG's will be scanned manually for concordance. If this scan disagrees with the automated IG or if promyelocytes are noted, a manual differential will be performed. Nory Gran Abs 0.55(H) 0.00 - 0.04 x10(3)/[facility] LABORATORY Blood specimen (specimen) 04/07/2020 3:50 AM EST 04/07/2020 4:01 AM EST Narrative Resulting Agency Comment Spec In Lab Anjelica Jordan APRN HEMATOLOGY ORDER MAGAN Performing Organization Address City/State/[facility] Co de Phone Number [facility] [place] [address] * (ABNORMAL) Hemogram (04/07/2020 3:50 AM EST) WBC 13.5(H) 4.0 - 9.5 x10(3)/[facility] LABORATORY RBC 3.14(L) 4.00 - 5.21 x10(6)/[facility] LABORATORY Hemoglobin 9.6(L) 11.7 - 15.5 gm/dL [facility] Hematocrit 28.1(L) 35.7 - 45.8 % [facility] MCV 89.5 82.6 - 94.4 fL [facility] MCH 30.6 27.1 - 32.0 pg [facility] MCHC 34.2 31.7 - 35.0 gm/dL [facility] Platelets 453(H) 145 - 357 x10(3)/[facility] LABORATORY RDWSD 44.5 37.0 - 46.0 fL [facility] RDWCV 13.5 11.5 - 14.1 % [facility] MPV 9.7 7.6 - 12.9 fL [facility] nRBC % Auto 0.0 % [facility] nRBC Abs Auto 0.000 0.000 - 0.000 x10(3)/mcL [facility] Blood specimen (specimen) 04/07/2020 3:50 AM EST 04/07/2020 4:01 AM EST Narrative Resulting Agency Comment Spec In Lab Anjelica Jordan APRN HEMATOLOGY ORDER MAGAN Performing Organization Address City/[facility]/ZIP Co de Phone Number [facility] [place] [address] * Phosphorus (04/07/2020 3:50 AM EST) Phosphorus 3.3 2.5 - 4.5 mg/dL [facility] Blood specimen (specimen) 04/07/2020 3:50 AM EST 04/07/2020 4:01 AM EST Narrative Resulting Agency Comment Spec In Lab Anjelica Jordan APRN CHEMISTRY ORDERA BLES Performing Organization Address [facility] Co de Phone Number [facility] [place] [address] * Magnesium (04/07/2020 3:50 AM EST) Magnesium 0.82 0.69 - 1.07 mmol/L [facility] Blood specimen (specimen) 04/07/2020 3:50 AM EST 04/07/2020 4:01 AM EST Narrative Resulting Agency Comment Spec In Lab Anjelica Jordan FIELD PROFESSIONAL CHEMISTRY ORDERA BLES Performing Organization Address [facility]/ZIP Co de Phone Number [facility] [place] [address] * (ABNORMAL) Basic Metabolic Panel (non-fasting) (04/07/2020 3:50 AM EST) Glucose Lvl 166 65 - 199 mg/dL [...] Agency Comment Spec In Lab Anjelica Jordan FIELD PROFESSIONAL CHEMISTRY ORDERA BLES [facility] [place] [address] * POCT Glucose (04/07/2020 3:41 AM EST) POC Glucose 160 65 - 199 mg/dL [facility] Comment: Supplemental ranges: <140 mg/dL before meals <180 mg/dL all other times of the day Blood specimen (specimen) 04/07/2020 3:41 AM EST 04/07/2020 3:41 AM EST Davian Carolina MD POINT OF CARE TEST ORDERABLES [facility] [place] [address] * POCT Glucose (04/06/2020 11:51 PM EST) POC Glucose 159 65 - 199 mg/dL [facility] Comment: Supplemental ranges: <140 mg/dL before meals <180 mg/dL all other times of the day Blood specimen (specimen) 04/06/2020 11:51 PM EST 04/06/2020 11:51 PM EST Davian Carolina MD POINT OF CARE TEST ORDERABLES Performing Organization Address City/[facility]/ZIP Co de Phone Number [facility] [place] [address] * POCT Glucose (04/06/2020 8:06 PM EST) POC Glucose 145 65 - 199 mg/dL [facility] Comment: Supplemental ranges: <140 mg/dL before meals <180 mg/dL all other times of the day Blood specimen (specimen) 04/06/2020 8:06 PM EST 04/06/2020 8:06 PM EST Davian Carolina MD POINT OF CARE TEST ORDERABLES [facility] [place] [address] * POCT Glucose (04/06/2020 4:02 PM EST) POC Glucose 177 65 - 199 mg/dL [facility] Comment: Supplemental ranges: <140 mg/dL before meals <180 mg/dL all other times of the day Blood specimen (specimen) 04/06/2020 4:02 PM EST 04/06/2020 4:02 PM EST Davian Carolina MD POINT OF CARE TEST ORDERABLES Performing Organization Address City/[facility]/ZIP Co de Phone Number [facility] [place] [address] * POCT Glucose (04/06/2020 12:12 PM EST) POC Glucose 156 65 - 199 mg/dL [facility] Comment: Supplemental ranges: <140 mg/dL before meals <180 mg/dL all other times of the day Blood specimen (specimen) 04/06/2020 12:12 PM EST 04/06/2020 12:12 PM EST Davian Carolina MD POINT OF CARE TEST ORDERABLES Performing Organization Address City/[facility]/ZIP Co de Phone Number [facility] [place] [address] * POCT Glucose (04/06/2020 7:50 AM EST) POC Glucose 170 65 - 199 mg/dL [facility] Comment: Supplemental ranges: <140 mg/dL before meals <180 mg/dL all other times of the day Blood specimen (specimen) 04/06/2020 7:50 AM EST 04/06/2020 7:50 AM EST Davian Carolina MD POINT OF CARE TEST ORDERABLES Performing Organization Address City/[facility]/ZIP Co de Phone Number [facility] [place] [address] * POCT Glucose (04/06/2020 4:43 AM EST) POC Glucose 198 65 - 199 mg/dL [facility] Comment: Supplemental ranges: <140 mg/dL before meals <180 mg/dL all other times of the day Blood specimen (specimen) 04/06/2020 4:43 AM EST 04/06/2020 4:43 AM EST Davian Carolina MD POINT OF CARE TEST ORDERABLES [facility] [place] [address] * (ABNORMAL) Differential, Automated (04/06/2020 1:30 AM EST) Neutrophils % 77.8 % [facility] Neutr Abs (ANC) 12.95(H) 1.70 - 6.10 x10(3)/[facility] LABORATORY Lymphocytes % 6.2 % [facility] Lymphocytes Abs 1.0 0.9 - 3.2 x10(3)/[facility] LABORATORY Monocytes % 9.8 % [facility] Monocyte Abs 1.6(H) 0.3 - 0.9 x10(3)/[facility] LABORATORY Eosinophils % 0.8 % [facility] Eosinophils Abs 0.1 0.0 - 0.4 x10(3)/[facility] LABORATORY Basophils % 0.5 % [facility] Basophils Abs 0.1 0.0 - 0.1 x10(3)/[facility] LABORATORY Immature Gran % 4.90 % [facility] Comment: Immature granulocytes(IG's)percentage and absolute count will include metamyelocytes, myelocytes, and promyelocytes. Blood smears from CBCs yielding IG's will be scanned manually for concordance. If this scan disagrees with the automated IG or if promyelocytes are noted, a manual differential will be performed. Nory Gran Abs 0.81(H) 0.00 - 0.04 x10(3)/ L [facility] Blood specimen (specimen) 04/06/2020 1:30 AM EST 04/06/2020 1:40 AM EST Narrative Resulting Agency Comment Spec In Lab Anjelica Jordan APRN HEMATOLOGY ORDER MAGAN Performing Organization Address City/[facility]/ZIP Co de Phone Number [facility] [place] [address] * (ABNORMAL) Hemogram (04/06/2020 1:30 AM EST) WBC 16.7(H) 4.0 - 9.5 x10(3)/[facility] LABORATORY RBC 3.04(L) 4.00 - 5.21 x10(6)/[facility] LABORATORY Hemoglobin 9.2(L) 11.7 - 15.5 gm/dL [facility] Hematocrit 27.3(L) 35.7 - 45.8 % [facility] MCV 89.8 82.6 - 94.4 fL [facility] MCH 30.3 27.1 - 32.0 pg [facility] MCHC 33.7 31.7 - 35.0 gm/dL [facility] Platelets 445(H) 145 - 357 x10(3)/[facility] LABORATORY RDWSD 43.9 37.0 - 46.0 [facility] LABORATORY RDWCV 13.2 11.5 - 14.1 % [facility] MPV 9.9 7.6 - 12.9 [facility] LABORATORY nRBC % Auto 0.0 % [facility] nRBC Abs Auto 0.000 0.000 - 0.000 x10(3)/[facility] LABORATORY Blood specimen (specimen) 04/06/2020 1:30 AM EST 04/06/2020 1:40 AM EST Narrative Resulting Agency Comment Spec In Lab Anjelica Jordan APRN HEMATOLOGY ORDER MAGAN Performing Organization Address City/[facility]/ZIP Co de Phone Number [facility] [place] [address] * Phosphorus (04/06/2020 1:30 AM EST) Phosphorus 3.3 2.5 - 4.5 mg/dL [facility] Blood specimen (specimen) 04/06/2020 1:30 AM EST 04/06/2020 1:40 AM EST Narrative Resulting Agency Comment Spec In Lab Anjelica Jordan FIELD PROFESSIONAL CHEMISTRY ORDERA BLES Performing Organization Address [facility] de Phone Number [facility] [place] [address] * Magnesium (04/06/2020 1:30 AM EST) Pathologist [facility] Magnesium 0.88 0.69 - 1.07 mmol/L [facility] Blood specimen (specimen) 04/06/2020 1:30 AM EST 04/06/2020 1:40 AM EST Narrative Resulting Agency Comment Spec In Lab Anjelica Jordan FIELD PROFESSIONAL CHEMISTRY ORDERA BLES Performing Organization Address [facility] de Phone Number [facility] [place] [address] * (ABNORMAL) Basic Metabolic Panel (non-fasting) (04/06/2020 1:30 AM EST) Pathologist [facility] Glucose Lvl 180 65 - 199 mg/dL [...] CHEMISTRY ORDERA BLES [facility] [place] [address] * POCT Glucose (04/05/2020 11:23 PM EST) POC Glucose 186 65 - 199 mg/dL [facility] [facility] Comment: Supplemental ranges: <140 mg/dL before meals <180 mg/dL all other times of the day Blood specimen (specimen) 04/05/2020 11:23 PM EST 04/05/2020 11:23 PM EST Davian Carolina MD POINT OF CARE TEST ORDERABLES [facility] [place] [address] * POCT Glucose (04/05/2020 8:03 PM EST) POC Glucose 150 65 - 199 mg/dL [facility] Comment: Supplemental ranges: <140 mg/dL before meals <180 mg/dL all other times of the day Blood specimen (specimen) 04/05/2020 8:03 PM EST 04/05/2020 8:03 PM EST Davian Carolina MD POINT OF CARE TEST ORDERABLES Performing Organization Address [facility] Co de Phone Number [facility] [place] [address] * POCT Glucose (04/05/2020 4:11 PM EST) POC Glucose 171 65 - 199 mg/dL [facility] Comment: Supplemental ranges: <140 mg/dL before meals <180 mg/dL all other times of the day Blood specimen (specimen) 04/05/2020 4:11 PM EST 04/05/2020 4:11 PM EST Davian Carolina MD POINT OF CARE TEST ORDERABLES Performing Organization Address [facility] de Phone Number [facility] [place] [address] * XR Chest PA & Lateral (Generic) [...] ? Electronically signed by: Ayan Caballero MD, [facility] ([phone]), at 04/05/2020 3:28 PM Narrative 04/05/2020 3:28 [...] during NG placement with persistent leukocyotosis and [id number] TECHNIQUE: PA and lateral views of the [...] below. Electronically signed by: Ayan Caballero MD, [facility]([phone]), at 04/05/2020 3:28 PM Davian Carolina MD IMG DX ORDERABLES * (ABNORMAL) POCT Glucose (04/05/2020 11:36 AM EST) POC Glucose 202(H) 65 - 199 mg/dL [facility] Comment: Supplemental ranges: <140 mg/dL before meals <180 mg/dL all other times of the day Blood specimen (specimen) 04/05/2020 11:36 AM EST 04/05/2020 11:36 AM EST Davian Carolina MD POINT OF CARE TEST ORDERABLES Performing Organization Address City/[facility]/ZIP Co de Phone Number [facility] [place] [address] * POCT Glucose (04/05/2020 8:06 AM EST) POC Glucose 168 65 - 199 mg/dL [facility] Comment: Supplemental ranges: <140 mg/dL before meals <180 mg/dL all other times of the day Blood specimen (specimen) 04/05/2020 8:06 AM EST 04/05/2020 8:06 AM EST Davian Carolina MD POINT OF CARE TEST ORDERABLES [facility] [place] [address] * POCT Glucose (04/05/2020 4:03 AM EST) [facility] POC Glucose 167 65 - 199 mg/dL [facility] Comment: Supplemental ranges: <140 mg/dL before meals <180 mg/dL all other times of the day Blood specimen (specimen) 04/05/2020 4:03 AM EST 04/05/2020 4:03 AM EST Davian Carolina MD POINT OF CARE TEST ORDERABLES [facility] [place] [address] * Scan, Peripheral Blood (04/05/2020 1:10 AM EST) [facility] Plat Estimate Increased [facility] RBC Morphology Normal [facility] Dohle Bodies Present [facility] Blood specimen (specimen) 04/05/2020 1:10 AM EST 04/05/2020 1:25 AM EST Narrative Resulting Agency Comment Spec In Lab Anejlica Jordan APRN HEMATOLOGY ORDER MAGAN [facility] [place] [address] * (ABNORMAL) Differential, Automated (04/05/2020 1:10 AM EST) [facility] Neutrophils % 81.7 % [facility] Neutr Abs (ANC) 17.48(H) 1.70 - 6.10 x10(3)/mc L [facility] Lymphocytes % 6.8 % [facility] Lymphocytes Abs 1.4 0.9 - 3.2 x10(3)/mc L [facility] Monocytes % 7.2 % [facility] Monocyte Abs 1.5(H) 0.3 - 0.9 x10(3)/mc L [facility] Eosinophils % 0.7 % [facility] Eosinophils Abs 0.2 0.0 - 0.4 x10(3)/[facility] Basophils % 0.5 % [facility] Basophils Abs 0.1 0.0 - 0.1 x10(3)/[facility] Immature Gran % 3.10 % [facility] Comment: Immature granulocytes(IG's)percentage and absolute count will include metamyelocytes, myelocytes, and promyelocytes. Blood smears from CBCs yielding IG's will be scanned manually for concordance. If this scan disagrees with the automated IG or if promyelocytes are noted, a manual differential will be performed. Nory Gran Abs 0.67(H) 0.00 - 0.04 x10(3)/[facility] Blood specimen (specimen) 04/05/2020 1:10 AM EST 04/05/2020 1:25 AM EST Narrative Resulting Agency Comment Spec In Lab Anjelica Jordan APRN HEMATOLOGY ORDER MAGAN [facility] [place] [address] * (ABNORMAL) Hemogram (04/05/2020 1:10 AM EST) WBC 21.4(H) 4.0 - 9.5 x10(3)/[facility] LABORATORY RBC 3.33(L) 4.00 - 5.21 x10(6)/[facility] Hemoglobin 9.9(L) 11.7 - 15.5 gm/dL [facility] Hematocrit 30.0(L) 35.7 - 45.8 % [facility] MCV 90.1 82.6 - 94.4 fL [facility] MCH 29.7 27.1 - 32.0 pg [facility] MCHC 33.0 31.7 - 35.0 gm/dL [facility] Platelets 444(H) 145 - 357 x10(3)/[facility] LABORATORY RDWSD 42.1 37.0 - 46.0 [facility] LAB[facility]ATORY RDWCV 12.7 11.5 - 14.1 % [facility] MPV 10.0 7.6 - 12.9 [facility] nRBC % Auto 0.0 % [facility] nRBC Abs Auto 0.000 0.000 - 0.000 x10(3)/[facility] Blood specimen (specimen) 04/05/2020 1:10 AM EST 04/05/2020 1:25 AM EST Narrative Resulting Agency Comment Spec In Lab Anjelica Jordan APRN HEMATOLOGY ORDER MAGAN Performing Organization Address [facility] Co de Phone Number [facility] [place] [address] * Phosphorus (04/05/2020 1:10 AM EST) Phosphorus 2.9 2.5 - 4.5 mg/dL [facility] Blood specimen (specimen) 04/05/2020 1:10 AM EST 04/05/2020 1:25 AM EST Narrative Resulting Agency Comment Spec In Lab Anjelica Jordan APRN CHEMISTRY ORDERA BLES Performing Organization Address [facility] Co de Phone Number [facility] [place] [address] * Magnesium (04/05/2020 1:10 AM EST) Magnesium 0.82 0.69 - 1.07 mmol/L [facility] Blood specimen (specimen) 04/05/2020 1:10 AM EST 04/05/2020 1:25 AM EST Narrative Resulting Agency Comment Spec In Lab Anjelica Jordan FIELD PROFESSIONAL CHEMISTRY ORDERA BLES Performing Organization Address City/[facility] Co de Phone Number [facility] [place] [address] * (ABNORMAL) Basic Metabolic Panel (non-fasting) (04/05/2020 [...] Comment Spec In Lab Anjelica E Nikki FIELD PROFESSIONAL CHEMISTRY ORDERA BLES [facility] [place] [address] * POCT Glucose (04/05/2020 1:09 AM EST) POC Glucose 172 65 - 199 mg/dL [facility] Comment: Supplemental ranges: <140 mg/dL before meals <180 mg/dL all other times of the day Blood specimen (specimen) 04/05/2020 1:09 AM EST 04/05/2020 1:09 AM EST Davian Carolina MD POINT OF CARE TEST ORDERABLES Performing Organization Address [facility] Co de Phone Number [facility] [place] [address] * POCT Glucose (04/04/2020 10:11 PM EST) POC Glucose 197 65 - 199 mg/dL [facility] Comment: Supplemental ranges: <140 mg/dL before meals <180 mg/dL all other times of the day Blood specimen (specimen) 04/04/2020 10:11 PM EST 04/04/2020 10:11 PM EST Davian Carolina MD POINT OF CARE TEST ORDERABLES Performing Organization Address City/[facility]/ZIP Co de Phone Number [facility] [place] [address] * POCT Glucose (04/04/2020 8:22 PM EST) POC Glucose 191 65 - 199 mg/dL [facility] Comment: Supplemental ranges: <140 mg/dL before meals <180 mg/dL all other times of the day Blood specimen (specimen) 04/04/2020 8:22 PM EST 04/04/2020 8:22 PM EST Davian Carolina MD POINT OF CARE TEST ORDERABLES [facility] [place] [address] * POCT Glucose (04/04/2020 4:36 PM EST) POC Glucose 190 65 - 199 mg/dL [facility] Comment: Supplemental ranges: <140 mg/dL before meals <180 mg/dL all other times of the day Blood specimen (specimen) 04/04/2020 4:36 PM EST 04/04/2020 4:36 PM EST Davian Carolina MD POINT OF CARE TEST ORDERABLES Performing Organization Address City/[facility]/ZIP Co de Phone Number [facility] [place] [address] * POCT Glucose (04/04/2020 11:52 AM EST) POC Glucose 178 65 - 199 mg/dL [facility] Comment: Supplemental ranges: <140 mg/dL before meals <180 mg/dL all other times of the day Blood specimen (specimen) 04/04/2020 11:52 AM EST 04/04/2020 11:52 AM EST Davian Carolina MD POINT OF CARE TEST ORDERABLES Performing Organization Address City/[facility] Co de Phone Number [facility] [place] [address] * (ABNORMAL) POCT Glucose (04/04/2020 7:38 AM EST) POC Glucose 220(H) 65 - 199 mg/dL [facility] Comment: Supplemental ranges: <140 mg/dL before meals <180 mg/dL all other times of the day Blood specimen (specimen) 04/04/2020 7:38 AM EST 04/04/2020 7:38 AM EST Davian Carolina MD POINT OF CARE TEST ORDERABLES Performing Organization Address City/[facility]/ZIP Co de Phone Number [facility] [place] [address] * (ABNORMAL) POCT Glucose (04/04/2020 5:20 AM EST) [facility] POC Glucose 203(H) 65 - 199 mg/dL [facility] Comment: Supplemental ranges: <140 mg/dL before meals <180 mg/dL all other times of the day Blood specimen (specimen) 04/04/2020 5:20 AM EST 04/04/2020 5:20 AM EST Davian Carolina MD POINT OF CARE TEST ORDERABLES Performing Organization Address City/[facility]/ZIP Co de Phone Number [facility] [place] [address] * POCT Glucose (04/04/2020 5:19 AM EST) [facility] POC Glucose 198 65 - 199 mg/dL [facility] Comment: Supplemental ranges: <140 mg/dL before meals <180 mg/dL all other times of the day Blood specimen (specimen) 04/04/2020 5:19 AM EST 04/04/2020 5:19 AM EST Davian Carolina MD POINT OF CARE TEST ORDERABLES Performing Organization Address [facility] Co de Phone Number [facility] [place] [address] * (ABNORMAL) Differential, Automated (04/04/2020 3:26 AM EST) [facility] Neutrophils % 86.3 % [facility] Neutr Abs (ANC) 17.68(H) 1.70 - 6.10 x10(3)/mc L [facility] Lymphocytes % 4.5 % [facility] Lymphocytes Abs 0.9 0.9 - 3.2 x10(3)/mc L [facility] Monocytes % 6.0 % [facility] Monocyte Abs 1.2(H) 0.3 - 0.9 x10(3)/mc L [facility] Eosinophils % 1.5 % [facility] Eosinophils Abs 0.3 0.0 - 0.4 x10(3)/[facility] LABORATORY Basophils % 0.3 % [facility] Basophils Abs 0.1 0.0 - 0.1 x10(3)/[facility] LAB[facility] Immature Gran % 1.40 % [facility] Comment: Immature granulocytes(IG's)percentage and absolute count will include metamyelocytes, myelocytes, and promyelocytes. Blood smears from CBCs yielding IG's will be scanned manually for concordance. If this scan disagrees with the automated IG or if promyelocytes are noted, a manual differential will be performed. Nory Gran Abs 0.29(H) 0.00 - 0.04 x10(3)/[facility] LAB[facility]ORY Blood specimen (specimen) 04/04/2020 3:26 AM EST 04/04/2020 3:32 AM EST Narrative Resulting Agency Comment Spec In Lab Anjelica Jordan APRN HEMATOLOGY ORDER MAGAN Performing Organization Address City/State/[facility] Co de Phone Number [facility] [place] [address] * (ABNORMAL) Hemogram (04/04/2020 3:26 AM EST) WBC 20.5(H) 4.0 - 9.5 x10(3)/[facility] LABORATORY RBC 3.01(L) 4.00 - 5.21 x10(6)/[facility] LAB[facility]ATORY Hemoglobin 9.1(L) 11.7 - 15.5 gm/dL [facility] Hematocrit 27.1(L) 35.7 - 45.8 % [facility] MCV 90.0 82.6 - 94.4 fL [facility] MCH 30.2 27.1 - 32.0 pg [facility] MCHC 33.6 31.7 - 35.0 gm/dL [facility] Platelets 367(H) 145 - 357 x10(3)/[facility] RDWSD 42.0 37.0 - 46.0 fL [facility] RDWCV 12.6 11.5 - 14.1 % [facility] MPV 9.6 7.6 - 12.9 fL [facility] nRBC % Auto 0.0 % [facility] nRBC Abs Auto 0.000 0.000 - 0.000 x10(3)/mcL [facility] Blood specimen (specimen) 04/04/2020 3:26 AM EST 04/04/2020 3:32 AM EST Narrative Resulting Agency Comment Spec In Lab Anjelica Jordan APRN HEMATOLOGY ORDER MAGAN Performing Organization Address [facility] Co de Phone Number [facility] [place] [address] * (ABNORMAL) Phosphorus (04/04/2020 3:26 AM EST) Phosphorus 2.4(L) 2.5 - 4.5 mg/dL [facility] Blood specimen (specimen) 04/04/2020 3:26 AM EST 04/04/2020 3:32 AM EST Narrative Resulting Agency Comment Spec In Lab Anjelica Jordan APRN CHEMISTRY ORDERA BLES Performing Organization Address [facility] de Phone Number [facility] [place] [address] * Magnesium (04/04/2020 3:26 AM EST) Magnesium 0.84 0.69 - 1.07 mmol/L [facility] Blood specimen (specimen) 04/04/2020 3:26 AM EST 04/04/2020 3:32 AM EST Narrative Resulting Agency Comment Spec In Lab Anjelica Jordan FIELD PROFESSIONAL CHEMISTRY ORDERA BLES Performing Organization Address [facility] Co de Phone Number [facility] [place] [address] * (ABNORMAL) Basic Metabolic Panel (non-fasting) (04/04/2020 [...] CHEMISTRY ORDERA BLES [facility] [place] [address] * POCT Glucose (04/04/2020 3:18 AM EST) POC Glucose 172 65 - 199 mg/dL [facility] Comment: Supplemental ranges: <140 mg/dL before meals <180 mg/dL all other times of the day Blood specimen (specimen) 04/04/2020 3:18 AM EST 04/04/2020 3:18 AM EST Davian Carolina MD POINT OF CARE TEST ORDERABLES Performing Organization Address City/[facility]/ZIP Co de Phone Number [facility] [place] [address] * POCT Glucose (04/04/2020 12:50 AM EST) POC Glucose 145 65 - 199 mg/dL [facility] Comment: Supplemental ranges: <140 mg/dL before meals <180 mg/dL all other times of the day Blood specimen (specimen) 04/04/2020 12:50 AM EST 04/04/2020 12:50 AM EST Davian Carolina MD POINT OF CARE TEST ORDERABLES Performing Organization Address City/[facility]/ZIP Co de Phone Number [facility] [place] [address] * POCT Glucose (04/03/2020 9:25 PM EST) POC Glucose 173 65 - 199 mg/dL [facility] Comment: Supplemental ranges: <140 mg/dL before meals <180 mg/dL all other times of the day Blood specimen (specimen) 04/03/2020 9:25 PM EST 04/03/2020 9:25 PM EST Davian Carolina MD POINT OF CARE TEST ORDERABLES [facility] [place] [address] * POCT Glucose (04/03/2020 4:19 PM EST) POC Glucose 197 65 - 199 mg/dL [facility] Comment: Supplemental ranges: <140 mg/dL before meals <180 mg/dL all other times of the day Blood specimen (specimen) 04/03/2020 4:19 PM EST 04/03/2020 4:19 PM EST Davian Carolina MD POINT OF CARE TEST ORDERABLES Performing Organization Address [facility] Co de Phone Number [facility] [place] [address] * (ABNORMAL) Urinalysis Microscopic Exam (04/03/2020 2:22 PM EST) Pathologist [facility] RBC UA 12(H) 0 - 4 /HPF [facility] WBC UA 6(H) 0 - 5 /HPF [facility] Squam Epith UA 5(H) <=4 /HPF [facility] Trans Epith UA <1 <=1 /HPF [facility] Hyaline Cast UA <1 0 - 2 /LPF [facility] Urine specimen (specimen) 04/03/2020 2:22 PM EST 04/03/2020 2:54 PM EST Narrative Resulting Agency Comment Spec In Lab Anjelica Jordan APRN URINE ORDERABLES Performing Organization Address [facility]/ZIP Co de Phone Number [facility] [place] [address] * (ABNORMAL) Urinalysis with reflex Culture (04/03/2020 [...] clinically indicated. Urobilinogen UA Normal Normal mg/dL [facility] pH UA 6.0 5.0 - 8.0 [facility] Blood UA Negative Negative mg/dL [facility] Ketones UA 40(A) Negative mg/dL [facility] Nitrite UA Negative Negative [facility] Leukocytes UA Negative Negative mcL [facility] Appearance UA Clear Clear [facility] Spec [place] UA 1.025 1.006 - 1.030 [facility] Color UA Yellow Yellow [facility] Culture Reflexed No [facility] Urine specimen (specimen) 04/03/2020 2:22 PM EST 04/03/2020 2:54 PM EST Narrative Resulting Agency Comment Spec In Lab Anjelica Jordan APRN URINE ORDERABLES Performing Organization Address [facility]/ZIP Co de Phone Number [facility] [place] [id number] * POCT Glucose (04/03/2020 12:47 PM EST) POC Glucose 151 65 - 199 mg/dL [facility] Comment: Supplemental ranges: <140 mg/dL before meals <180 mg/dL all other times of the day Blood specimen (specimen) 04/03/2020 12:47 PM EST 04/03/2020 12:47 PM EST Davian Carolina MD POINT OF CARE TEST ORDERABLES Performing Organization Address City/[facility]/ZIP Co de Phone Number [facility] [place] [address] * XR Abdomen 1 view (Generic) (04/03/2020 [...] ? Electronically signed by: Deepika Handy MD, [facility] ([phone]), at 04/03/2020 11:49 AM Narrative 04/03/2020 11:49 [...] below. Electronically signed by: Deepika Handy MD, [facility]([phone]), at 04/03/2020 11:49 AM Anjelica Jordan APRN IMG DX ORDERABLE S * POCT Glucose (04/03/2020 5:18 AM EST) POC Glucose 192 65 - 199 mg/dL [facility] Comment: Supplemental ranges: <140 mg/dL before meals <180 mg/dL all other times of the day Blood specimen (specimen) 04/03/2020 5:18 AM EST 04/03/2020 5:18 AM EST Davian Carolina MD POINT OF CARE TEST ORDERABLES [facility] [place] [address] * (ABNORMAL) Differential, Automated (04/03/2020 2:50 AM EST) Neutrophils % 91.6 % [facility] Neutr Abs (ANC) 16.61(H) 1.70 - 6.10 x10(3)/[facility] LABORATORY Lymphocytes % 2.9 % [facility] Lymphocytes Abs 0.5(L) 0.9 - 3.2 x10(3)/[facility] LABORATORY Monocytes % 4.7 % [facility] Monocyte Abs 0.8 0.3 - 0.9 x10(3)/[facility] LABORATORY Eosinophils % 0.1 % [facility] Eosinophils Abs 0.0 0.0 - 0.4 x10(3)/[facility] LABORATORY Basophils % 0.2 % [facility] Basophils Abs 0.0 0.0 - 0.1 x10(3)/[facility] LABORATORY Immature Gran % 0.50 % [facility] Comment: Immature granulocytes(IG's)percentage and absolute count will include metamyelocytes, myelocytes, and promyelocytes. Blood smears from CBCs yielding IG's will be scanned manually for concordance. If this scan disagrees with the automated IG or if promyelocytes are noted, a manual differential will be performed. Nory Gran Abs 0.09(H) 0.00 - 0.04 x10(3)/[facility] LABORATORY Blood specimen (specimen) 04/03/2020 2:50 AM EST 04/03/2020 3:05 AM EST Narrative Resulting Agency Comment Spec In Lab Anjelica Jordan APRN HEMATOLOGY ORDER MAGAN [facility] [place] [address] * (ABNORMAL) Hemogram (04/03/2020 2:50 AM EST) WBC 18.1(H) 4.0 - 9.5 x10(3)/[facility] LABORATORY RBC 3.40(L) 4.00 - 5.21 x10(6)/[facility] LABORATORY Hemoglobin 10.2(L) 11.7 - 15.5 gm/dL [facility] Hematocrit 30.9(L) 35.7 - 45.8 % [facility] MCV 90.9 82.6 - 94.4 fL [facility] MCH 30.0 27.1 - 32.0 pg [facility] MCHC 33.0 31.7 - 35.0 gm/dL [facility] Platelets 380(H) 145 - 357 x10(3)/[facility] RDWSD 40.6 37.0 - 46.0 fL [facility] RDWCV 12.3 11.5 - 14.1 % [facility] MPV 10.0 7.6 - 12.9 [facility] LABORATORY nRBC % Auto 0.0 % [facility] nRBC Abs Auto 0.000 0.000 - 0.000 x10(3)/[facility] LABORATORY Blood specimen (specimen) 04/03/2020 2:50 AM EST 04/03/2020 3:05 AM EST Narrative Resulting Agency Comment Spec In Lab Anjelica Jordan APRN HEMATOLOGY ORDER MAGAN Performing Organization Address City/State/[facility] Co de Phone Number [facility] [place] [address] * (ABNORMAL) Phosphorus (04/03/2020 2:50 AM EST) Phosphorus 2.2(L) 2.5 - 4.5 mg/dL [facility] Blood specimen (specimen) 04/03/2020 2:50 AM EST 04/03/2020 3:05 AM EST Narrative Resulting Agency Comment Spec In Lab Anjelica E Nikki FIELD PROFESSIONAL CHEMISTRY ORDERA BLES [facility] [place] [address] * Magnesium (04/03/2020 2:50 AM EST) Magnesium 0.76 0.69 - 1.07 mmol/L [facility] Blood specimen (specimen) 04/03/2020 2:50 AM EST 04/03/2020 3:05 AM EST Narrative Resulting Agency Comment Spec In Lab Anjelica Lissa Nikki FIELD PROFESSIONAL CHEMISTRY ORDERA BLES Performing Organization Address City/[facility] Co de Phone Number [facility] [place] [address] * (ABNORMAL) Basic Metabolic Panel (non-fasting) (04/03/2020 [...] APRN CHEMISTRY ORDERA BLES Performing Organization Address [facility] Co de Phone Number [facility] [place] [address] * POCT Glucose (04/02/2020 10:57 PM EST) POC Glucose 164 65 - 199 mg/dL [facility] Comment: Supplemental ranges: <140 mg/dL before meals <180 mg/dL all other times of the day Blood specimen (specimen) 04/02/2020 10:57 PM EST 04/02/2020 10:57 PM EST Davian Carolina MD POINT OF CARE TEST ORDERABLES Performing Organization Address [facility] Co de Phone Number [facility] [place] [address] * XR Chest One View (04/02/2020 7:21 [...] the number below. ? Electronically signed by: Olayinka Mcduffie MD, [facility] ([phone]), at 04/02/2020 8:07 PM Narrative 04/02/2020 8:07 PM EST EXAMINATION: XR [...] below. Electronically signed by: Olayinka Mcduffie MD, [facility]([phone]), at 04/02/2020 8:07 PM Davian Carolina MD [...] ? Electronically signed by: Jayro Maier MD, [facility] ([phone]), at 04/02/2020 8:17 PM Narrative 04/02/2020 8:17 [...] contact the number below. Electronically signed by: Jayro Maier MD, [facility]([phone]), at 04/02/2020 8:17 PM Davian Carolina MD IMG DX ORDERABLES [...] APRN CHEMISTRY ORDERA BLES Performing Organization Address [facility] Co de Phone Number [facility] [place] [address] * POCT Glucose (04/02/2020 5:17 PM EST) Pathologist [facility] POC Glucose 85 65 - 199 mg/dL [facility] Comment: Supplemental ranges: <140 mg/dL before meals <180 mg/dL all other times of the day Blood specimen (specimen) 04/02/2020 5:17 PM EST 04/02/2020 5:17 PM EST Davian Carolina MD POINT OF CARE TEST ORDERABLES Performing Organization Address [facility] Co de Phone Number [facility] [place] [address] * UPPER GI ENDOSCOPY (04/02/2020 2:52 PM EST) Pathologist [facility] UPPER GI ENDOSCOPY [facility] Endoscopy Procedure Date: 04/02/2020 2:52 PM ? Patient Name: Linda Abel ? Date of : 1945 ? Age: 74 ? Order #: [id number] ? Instrument Name: [id number] ? Procedure: ? Upper GI endoscopy Indications: ? Abnormal CT of the GI tract Providers: ? Ralf Urrutia, Anjelica Schofield, ? Chela Lawler Referring MD: ? Medicines: ? General Anesthesia [...] ? procedure, including non-gonsalez portions. ? Ralf Aldrich Renan, 04/02/2020 4:15:43 PM Number of Addenda: 0 Note Initiated On: 04/02/2020 2:52 PM [facility] 04/02/2020 2:52 PM EST Unknown GENERAL SURGICAL ORD ERABLES [facility] * POCT Glucose (04/02/2020 12:12 PM EST) POC Glucose 106 65 - 199 mg/dL [facility] Comment: Supplemental ranges: <140 mg/dL before meals <180 mg/dL all other times of the day Blood specimen (specimen) 04/02/2020 12:12 PM EST 04/02/2020 12:12 PM EST Davian Carolina MD POINT OF CARE TEST ORDERABLES Performing Organization Address [facility] Co de Phone Number [facility] [place] [address] * POCT Glucose (04/02/2020 9:58 AM EST) POC Glucose 104 65 - 199 mg/dL [facility] Comment: Supplemental ranges: <140 mg/dL before meals <180 mg/dL all other times of the day Blood specimen (specimen) 04/02/2020 9:58 AM EST 04/02/2020 9:58 AM EST Davian Carolina MD POINT OF CARE TEST ORDERABLES Performing Organization Address City/[facility]/ZIP Co de Phone Number [facility] [place] [address] * POCT Glucose (04/02/2020 8:04 AM EST) POC Glucose 106 65 - 199 mg/dL [facility] Comment: Supplemental ranges: <140 mg/dL before meals <180 mg/dL all other times of the day Blood specimen (specimen) 04/02/2020 8:04 AM EST 04/02/2020 8:04 AM EST Davian Carolina MD POINT OF CARE TEST ORDERABLES Performing Organization Address City/[facility]/ZIP Co de Phone Number [facility] [place] [address] * (ABNORMAL) Differential, Automated (04/02/2020 1:40 AM EST) Neutrophils % 88.6 % [facility]ORY Neutr Abs (ANC) 14.39(H) 1.70 - 6.10 x10(3)/[facility] LABORATORY Lymphocytes % 6.2 % [facility] Lymphocytes Abs 1.0 0.9 - 3.2 x10(3)/[facility] LABORATORY Monocytes % 4.2 % [facility] Monocyte Abs 0.7 0.3 - 0.9 x10(3)/[facility] LABORATORY Eosinophils % 0.1 % [facility] Eosinophils Abs 0.0 0.0 - 0.4 x10(3)/[facility] LABORATORY Basophils % 0.5 % [facility] Basophils Abs 0.1 0.0 - 0.1 x10(3)/[facility] LABORATORY Immature Gran % 0.40 % [facility] Comment: Immature granulocytes(IG's)percentage and absolute count will include metamyelocytes, myelocytes, and promyelocytes. Blood smears from CBCs yielding IG's will be scanned manually for concordance. If this scan disagrees with the automated IG or if promyelocytes are noted, a manual differential will be performed. Nory Gran Abs 0.07(H) 0.00 - 0.04 x10(3)/[facility] LABORATORY Blood specimen (specimen) 04/02/2020 1:40 AM EST 04/02/2020 1:45 AM EST Narrative Resulting Agency Comment Spec In Lab Anjelica Jordan APRN HEMATOLOGY ORDER MAGAN Performing Organization Address City/[facility]/ZIP Co de Phone Number [facility] [place] [address] * (ABNORMAL) Hemogram (04/02/2020 1:40 AM EST) WBC 16.2(H) 4.0 - 9.5 x10(3)/[facility] LABORATORY RBC 3.53(L) 4.00 - 5.21 x10(6)/[facility] LABORATORY Hemoglobin 11.0(L) 11.7 - 15.5 gm/dL [facility] Hematocrit 31.1(L) 35.7 - 45.8 % [facility] MCV 88.1 82.6 - 94.4 [facility] LABORATORY MCH 31.2 27.1 - 32.0 pg [facility] MCHC 35.4(H) 31.7 - 35.0 gm/dL [facility] Platelets 351 145 - 357 x10(3)/[facility] RDWSD 40.2 37.0 - 46.0 [facility] LABORATORY RDWCV 12.4 11.5 - 14.1 % [facility] MPV 10.2 7.6 - 12.9 [facility] LABORATORY nRBC % Auto 0.0 % [facility] nRBC Abs Auto 0.000 0.000 - 0.000 x10(3)/[facility] LABORATORY Blood specimen (specimen) 04/02/2020 1:40 AM EST 04/02/2020 1:45 AM EST Narrative Resulting Agency Comment Spec In Lab Anjelica Jordan APRN HEMATOLOGY ORDER MAGAN Performing Organization Address City/[facility]/ZIP Co de Phone Number [facility] [place] [address] * Phosphorus (04/02/2020 1:40 AM EST) Phosphorus 3.5 2.5 - 4.5 mg/dL [facility] Blood specimen (specimen) 04/02/2020 1:40 AM EST 04/02/2020 1:45 AM EST Narrative Resulting Agency Comment Spec In Lab Anjelica Jordan FIELD PROFESSIONAL CHEMISTRY ORDERA BLES Performing Organization Address [facility] Co de Phone Number [facility] [place] [address] * Magnesium (04/02/2020 1:40 AM EST) Magnesium 0.69 0.69 - 1.07 mmol/L [facility] Blood specimen (specimen) 04/02/2020 1:40 AM EST 04/02/2020 1:45 AM EST Narrative Resulting Agency Comment Spec In Lab Anjelica Jordan FIELD PROFESSIONAL CHEMISTRY ORDERA BLES Performing Organization Address [facility] de Phone Number [facility] [place] [address] * (ABNORMAL) Basic Metabolic Panel (non-fasting) (04/02/2020 [...] CHEMISTRY ORDERA BLES [facility] [place] [address] * POCT Glucose (04/01/2020 7:48 PM EST) POC Glucose 109 65 - 199 mg/dL [facility] Comment: Supplemental ranges: <140 mg/dL before meals <180 mg/dL all other times of the day Blood specimen (specimen) 04/01/2020 7:48 PM EST 04/01/2020 7:48 PM EST Davian Carolina MD POINT OF CARE TEST ORDERABLES Performing Organization Address City/[facility]/ZIP Co de Phone Number [facility] [place] [address] * XR Abdomen 1 view (Generic) (04/01/2020 5:52 PM EST) Anatomical Region Laterality Modality Abdomen N/A Digital Radiogra phy Impressions 04/01/2020 5:59 PM EST Enteric tube with distal side-port overlying the region of the stomach. Thank you for letting us participate in the care of this patient. For questions regarding this report, please contact the number below. ? Electronically signed by: CALEB KAPOOR DO [facility] ([phone]), at 04/01/2020 5:59 PM Narrative 04/01/2020 5:59 PM EST EXAMINATION: XR [...] of Diabetes Mellitus, Position Statement from the [employer]. ??Diabetes Care, Volume 33, Supplement [...] MD CHEMISTRY ORDERABL ES Performing Organization Address [facility] Co de Phone Number [facility] [place] [address] * POCT Glucose (04/01/2020 3:31 PM EST) POC Glucose 111 65 - 199 mg/dL [facility] Comment: Supplemental ranges: <140 mg/dL before meals <180 mg/dL all other times of the day Blood specimen (specimen) 04/01/2020 3:31 PM EST 04/01/2020 3:31 PM EST Davian Carolina MD POINT OF CARE TEST ORDERABLES Performing Organization Address [facility] Co de Phone Number [facility] [place] [address] * CT Abdomen & Pelvis w Contrast [...] ? Electronically signed by: Raimundo Mccurdy MD, [facility] ([phone]), at 04/01/2020 4:09 PM Narrative 04/01/2020 4:09 [...] administration of contrast. Administered 66.0 ml of [id number] mg/ml. Oral contrast was administered. COMPARISON: Postoperative [...] below. Electronically signed by: Raimundo Mccurdy MD, [facility]([phone]), at 04/01/2020 4:09 PM Anjelica Jordan FIELD PROFESSIONAL IMG CT ORDERABLE S * POCT Glucose (04/01/2020 11:20 AM EST) POC Glucose 138 65 - 199 mg/dL [facility] Comment: Supplemental ranges: <140 mg/dL before meals <180 mg/dL all other times of the day Blood specimen (specimen) 04/01/2020 11:20 AM EST 04/01/2020 11:20 AM EST Davian Carolina MD POINT OF CARE TEST ORDERABLES Performing Organization Address City/State/[facility] Co de Phone Number [facility] [place] [address] * POCT Glucose (04/01/2020 7:30 AM EST) POC Glucose 170 65 - 199 mg/dL [facility] Comment: Supplemental ranges: <140 mg/dL before meals <180 mg/dL all other times of the day Blood specimen (specimen) 04/01/2020 7:30 AM EST 04/01/2020 7:30 AM EST Davian Carolina MD POINT OF CARE TEST ORDERABLES [facility] [place] [address] * POCT Glucose (04/01/2020 4:43 AM EST) Pathologist [facility] POC Glucose 152 65 - 199 mg/dL [facility] Comment: Supplemental ranges: <140 mg/dL before meals <180 mg/dL all other times of the day Blood specimen (specimen) 04/01/2020 4:43 AM EST 04/01/2020 4:43 AM EST Davian Carolina MD POINT OF CARE TEST ORDERABLES Performing Organization Address [facility] Co de Phone Number [facility] [place] [address] * (ABNORMAL) Differential, Automated (04/01/2020 4:20 AM EST) Pathologist [facility] Neutrophils % 85.6 % [facility] Neutr Abs (ANC) 8.42(H) 1.70 - 6.10 x10(3)/mc L [facility] Lymphocytes % 7.1 % [facility] Lymphocytes Abs 0.7(L) 0.9 - 3.2 x10(3)/mc L [facility] Monocytes % 5.2 % [facility] Monocyte Abs 0.5 0.3 - 0.9 x10(3)/mc L [facility] Eosinophils % 1.2 % [facility] Eosinophils Abs 0.1 0.0 - 0.4 x10(3)/mc L [facility] Basophils % 0.4 % [facility] Basophils Abs 0.0 0.0 - 0.1 x10(3)/mc L [facility] Immature Gran % 0.50 % [facility] Comment: Immature granulocytes(IG's)percentage and absolute count will include metamyelocytes, myelocytes, and promyelocytes. Blood smears from CBCs yielding IG's will be scanned manually for concordance. If this scan disagrees with the automated IG or if promyelocytes are noted, a manual differential will be performed. Nory Gran Abs 0.05(H) 0.00 - 0.04 x10(3)/mc L [facility] Blood specimen (specimen) 04/01/2020 4:20 AM EST 04/01/2020 4:30 AM EST Narrative Resulting Agency Comment Spec In Lab Edwardo Mccormack MD HEMATOLOGY ORDERABLE S [facility] [place] [address] * (ABNORMAL) Hemogram (04/01/2020 4:20 AM EST) WBC 9.8(H) 4.0 - 9.5 x10(3)/[facility] LABORATORY RBC 3.72(L) 4.00 - 5.21 x10(6)/[facility] LABORATORY Hemoglobin 11.3(L) 11.7 - 15.5 gm/dL [facility] Hematocrit 32.9(L) 35.7 - 45.8 % [facility] MCV 88.4 82.6 - 94.4 fL [facility] MCH 30.4 27.1 - 32.0 pg [facility] MCHC 34.3 31.7 - 35.0 gm/dL [facility] Platelets 320 145 - 357 x10(3)/[facility] LABORATORY RDWSD 39.5 37.0 - 46.0 [facility] LABORATORY RDWCV 12.2 11.5 - 14.1 % [facility] MPV 10.6 7.6 - 12.9 fL [facility] nRBC % Auto 0.0 % [facility] nRBC Abs Auto 0.000 0.000 - 0.000 x10(3)/[facility] LABORATORY Blood specimen (specimen) 04/01/2020 4:20 AM EST 04/01/2020 4:30 AM EST Narrative Resulting Agency Comment Spec In Lab Edwardo Mccormack MD HEMATOLOGY ORDERABLE S [facility] [place] [address] * (ABNORMAL) Basic Metabolic Panel (non-fasting) (04/01/2020 [...] MD CHEMISTRY ORDERABL ES Performing Organization Address [facility] de Phone Number [facility] [place] [address] * POCT Glucose (04/01/2020 12:06 AM EST) POC Glucose 141 65 - 199 mg/dL [facility] Comment: Supplemental ranges: <140 mg/dL before meals <180 mg/dL all other times of the day Blood specimen (specimen) 04/01/2020 12:06 AM EST 04/01/2020 12:06 AM EST Davian Carolina MD POINT OF CARE TEST ORDERABLES Performing Organization Address [facility] de Phone Number [facility] [place] [address] * POCT Glucose (03/31/2020 8:52 PM EST) POC Glucose 159 65 - 199 mg/dL [facility] Comment: Supplemental ranges: <140 mg/dL before meals <180 mg/dL all other times of the day Blood specimen (specimen) 03/31/2020 8:52 PM EST 03/31/2020 8:52 PM EST Davian Carolina MD POINT OF CARE TEST ORDERABLES Performing Organization Address [facility] de Phone Number [facility] [place] [address] * XR Abdomen Flat & Upright (03/31/2020 [...] the number below. ? Electronically signed by: Gabby Kong MD, [facility] ([phone]), at 03/31/2020 7:13 PM Narrative 03/31/2020 7:13 PM EST EXAMINATION: XR [...] contact the number below. Electronically signed by: Gabby Kong MD, [facility]([phone]), at 03/31/2020 7:13 PM Davian Carolina MD IMG DX ORDERABLES * POCT Glucose (03/31/2020 4:52 PM EST) POC Glucose 169 65 - 199 mg/dL [facility] Comment: Supplemental ranges: <140 mg/dL before meals <180 mg/dL all other times of the day Blood specimen (specimen) 03/31/2020 4:52 PM EST 03/31/2020 4:52 PM EST Davian Carolina MD POINT OF CARE TEST ORDERABLES Performing Organization Address [facility] Co de Phone Number [facility] [place] [address] * POCT Glucose (03/31/2020 12:03 PM EST) POC Glucose 134 65 - 199 mg/dL [facility] Comment: Supplemental ranges: <140 mg/dL before meals <180 mg/dL all other times of the day Blood specimen (specimen) 03/31/2020 12:03 PM EST 03/31/2020 12:03 PM EST Davian Carolina MD POINT OF CARE TEST ORDERABLES [facility] [place] [address] * POCT Glucose (03/31/2020 7:35 AM EST) Pathologist [facility] POC Glucose 128 65 - 199 mg/dL [facility] Comment: Supplemental ranges: <140 mg/dL before meals <180 mg/dL all other times of the day Blood specimen (specimen) 03/31/2020 7:35 AM EST 03/31/2020 7:35 AM EST Davian Carolina MD POINT OF CARE TEST ORDERABLES Performing Organization Address City/[facility]/ZIP Co de Phone Number [facility] [place] [address] * (ABNORMAL) Differential, Automated (03/31/2020 6:36 AM EST) Pathologist [facility] Neutrophils % 81.8 % [facility] Neutr Abs (ANC) 7.38(H) 1.70 - 6.10 x10(3)/mc L [facility] Lymphocytes % 7.7 % [facility] Lymphocytes Abs 0.7(L) 0.9 - 3.2 x10(3)/ L [facility] Monocytes % 6.9 % [facility] Monocyte Abs 0.6 0.3 - 0.9 x10(3)/ L [facility] Eosinophils % 2.7 % [facility] Eosinophils Abs 0.2 0.0 - 0.4 x10(3)/mc L [facility] Basophils % 0.3 % [facility] Basophils Abs 0.0 0.0 - 0.1 x10(3)/mc L [facility] Immature Gran % 0.60 % [facility] Comment: Immature granulocytes(IG's)percentage and absolute count will include metamyelocytes, myelocytes, and promyelocytes. Blood smears from CBCs yielding IG's will be scanned manually for concordance. If this scan disagrees with the automated IG or if promyelocytes are noted, a manual differential will be performed. Nory Gran Abs 0.05(H) 0.00 - 0.04 x10(3)/[facility] LABORATORY Blood specimen (specimen) 03/31/2020 6:36 AM EST 03/31/2020 6:55 AM EST Narrative Resulting Agency Comment Spec In Lab Anjelica Jordan APRN HEMATOLOGY ORDER MAGAN [facility] [place] [address] * (ABNORMAL) Hemogram (03/31/2020 6:36 AM EST) WBC 9.0 4.0 - 9.5 x10(3)/[facility] LABORATORY RBC 3.76(L) 4.00 - 5.21 x10(6)/[facility] LABORATORY Hemoglobin 11.4(L) 11.7 - 15.5 gm/dL [facility] Hematocrit 33.7(L) 35.7 - 45.8 % [facility] MCV 89.6 82.6 - 94.4 [facility] LABORATORY MCH 30.3 27.1 - 32.0 pg [facility] MCHC 33.8 31.7 - 35.0 gm/dL [facility] Platelets 252 145 - 357 x10(3)/[facility] LABORATORY RDWSD 41.2 37.0 - 46.0 [facility] LABORATORY RDWCV 12.5 11.5 - 14.1 % [facility] MPV 10.7 7.6 - 12.9 [facility] LABORATORY nRBC % Auto 0.0 % [facility] nRBC Abs Auto 0.000 0.000 - 0.000 x10(3)/[facility] LABORATORY Blood specimen (specimen) 03/31/2020 6:36 AM EST 03/31/2020 6:55 AM EST Narrative Resulting Agency Comment Spec In Lab Anjelica Jordan FIELD PROFESSIONAL HEMATOLOGY ORDER MAGAN [facility] [place] [address] * (ABNORMAL) BMP w/fasting Glucose (03/31/2020 6:36 [...] of Diabetes Mellitus, Position Statement from the [employer]. ??Diabetes Care, Volume 33, Supplement [...] MD CHEMISTRY ORDERABL ES Performing Organization Address [facility] Co de Phone Number [facility] [place] [address] * Phosphorus (03/31/2020 6:36 AM EST) Phosphorus 3.7 2.5 - 4.5 mg/dL [facility] Blood specimen (specimen) 03/31/2020 6:36 AM EST 03/31/2020 6:55 AM EST Narrative Resulting Agency Comment Spec In Lab Anjelica Jordan APRN CHEMISTRY ORDERA BLES Performing Organization Address [facility] Co de Phone Number [facility] [place] [address] * Magnesium (03/31/2020 6:36 AM EST) Magnesium 0.77 0.69 - 1.07 mmol/L [facility] Blood specimen (specimen) 03/31/2020 6:36 AM EST 03/31/2020 6:55 AM EST Narrative Resulting Agency Comment Spec In Lab Anjelica Jordan APRN CHEMISTRY ORDERA BLES Performing Organization Address [facility] Co de Phone Number [facility] [place] [address] * POCT Glucose (03/30/2020 8:05 PM EST) POC Glucose 136 65 - 199 mg/dL [facility] Comment: Supplemental ranges: <140 mg/dL before meals <180 mg/dL all other times of the day Blood specimen (specimen) 03/30/2020 8:05 PM EST 03/30/2020 8:05 PM EST Davian Carolina MD POINT OF CARE TEST ORDERABLES Performing Organization Address [facility] de Phone Number [facility] [place] [address] * POCT Glucose (03/30/2020 4:55 PM EST) POC Glucose 129 65 - 199 mg/dL [facility] Comment: Supplemental ranges: <140 mg/dL before meals <180 mg/dL all other times of the day Blood specimen (specimen) 03/30/2020 4:55 PM EST 03/30/2020 4:55 PM EST Davian Carolina MD POINT OF CARE TEST ORDERABLES Performing Organization Address [facility] de Phone Number [facility] [place] [address] * C-peptide (03/30/2020 1:45 PM EST) C-Peptide 1.4 0.8 - 5.2 ng/mL [facility] Blood specimen (specimen) 03/30/2020 1:45 PM EST 03/30/2020 1:52 PM EST Narrative Resulting Agency Comment Spec In Lab Katie Santamaria APRN CHEMISTRY ORDERABLE S Performing Organization Address [facility] Co de Phone Number [facility] [place] [address] * POCT Glucose (03/30/2020 11:41 AM EST) POC Glucose 156 65 - 199 mg/dL [facility] Comment: Supplemental ranges: <140 mg/dL before meals <180 mg/dL all other times of the day Blood specimen (specimen) 03/30/2020 11:41 AM EST 03/30/2020 11:41 AM EST Davian Carolina MD POINT OF CARE TEST ORDERABLES Performing Organization Address City/[facility] Co de Phone Number [facility] [place] [address] * POCT Glucose (03/30/2020 7:43 AM EST) POC Glucose 160 65 - 199 mg/dL [facility] Comment: Supplemental ranges: <140 mg/dL before meals <180 mg/dL all other times of the day Blood specimen (specimen) 03/30/2020 7:43 AM EST 03/30/2020 7:43 AM EST Davian Carolina MD POINT OF CARE TEST ORDERABLES Performing Organization Address [facility] de Phone Number [facility] [place] [address] * (ABNORMAL) Hemoglobin A1c (03/30/2020 1:20 AM [...] Mellitus, Diabetes Care 2013; 36: Suppl. 1, S67-95 Est Avg Gluc See note mg/dL [facility] [...] into estimated average glucose values. ??Diabetes Care 2008:31(8):2788-6985. Blood specimen (specimen) Venous Draw / Unknown 03/30/2020 1:20 AM EST 03/30/2020 8:28 AM EST Narrative Resulting Agency Comment Spec In Lab Anjelica Jordan APRN CHEMISTRY ORDERA DAYSI [facility] [place] [address] * (ABNORMAL) Differential, Automated (03/30/2020 1:20 AM EST) Neutrophils % 77.8 % [facility] Neutr Abs (ANC) 8.06(H) 1.70 - 6.10 x10(3)/mc L [facility] Lymphocytes % 12.1 % [facility] LABORATORY Lymphocytes Abs 1.2 0.9 - 3.2 x10(3)/mc L [facility] Monocytes % 7.0 % [facility] LABOR[facility] Monocyte Abs 0.7 0.3 - 0.9 x10(3)/[facility] LABORATORY Eosinophils % 2.4 % [facility] LABORATORY Eosinophils Abs 0.2 0.0 - 0.4 x10(3)/[facility] LABORATORY Basophils % 0.2 % [facility] LABOR[facility] Basophils Abs 0.0 0.0 - 0.1 x10(3)/[facility] LABORATORY Immature Gran % 0.50 % [facility] Comment: Immature granulocytes(IG's)percentage and absolute count will include metamyelocytes, myelocytes, and promyelocytes. Blood smears from CBCs yielding IG's will be scanned manually for concordance. If this scan disagrees with the automated IG or if promyelocytes are noted, a manual differential will be performed. Nory Gran Abs 0.05(H) 0.00 - 0.04 x10(3)/[facility] LABORATORY Blood specimen (specimen) 03/30/2020 1:20 AM EST 03/30/2020 1:33 AM EST Narrative Resulting Agency Comment Spec In Lab Anjelica Jordan APRN HEMATOLOGY ORDER MAGAN [facility] [place] [address] * (ABNORMAL) Hemogram (03/30/2020 1:20 AM EST) WBC 10.4(H) 4.0 - 9.5 x10(3)/[facility] LABORATORY RBC 3.91(L) 4.00 - 5.21 x10(6)/[facility] LABORATORY Hemoglobin 12.0 11.7 - 15.5 gm/dL [facility] Hematocrit 34.9(L) 35.7 - 45.8 % [facility] MCV 89.3 82.6 - 94.4 fL [facility] MCH 30.7 27.1 - 32.0 pg [facility] MCHC 34.4 31.7 - 35.0 gm/dL [facility] Platelets 231 145 - 357 x10(3)/[facility] LABORATORY RDWSD 40.1 37.0 - 46.0 fL [facility] RDWCV 12.4 11.5 - 14.1 % [facility] MPV 10.2 7.6 - 12.9 fL [facility] nRBC % Auto 0.0 % [facility] LABOR[facility] nRBC Abs Auto 0.000 0.000 - 0.000 x10(3)/[facility] LABORATORY Blood specimen (specimen) 03/30/2020 1:20 AM EST 03/30/2020 1:33 AM EST Narrative Resulting Agency Comment Spec In Lab Anjelica Jordan APRN HEMATOLOGY ORDER MAGAN Performing Organization Address City/State/[facility] Co de Phone Number [facility] [place] [address] * (ABNORMAL) BMP w/fasting Glucose (03/30/2020 1:20 AM EST) Glucose Fasting 158(H) 65 - 99 mg/dL [...] of Diabetes Mellitus, Position Statement from the [employer]. ??Diabetes Care, Volume 33, Supplement [...] CHEMISTRY ORDERABL ES [facility] [place] [address] * Phosphorus (03/30/2020 1:20 AM EST) Phosphorus 3.3 2.5 - 4.5 mg/dL [facility] Blood specimen (specimen) 03/30/2020 1:20 AM EST 03/30/2020 1:33 AM EST Narrative Resulting Agency Comment Spec In Lab Anjelica Jordan FIELD PROFESSIONAL CHEMISTRY ORDERA BLES Performing Organization Address [facility] de Phone Number [facility] [place] [address] * Magnesium (03/30/2020 1:20 AM EST) Magnesium 0.83 0.69 - 1.07 mmol/L [facility] Blood specimen (specimen) 03/30/2020 1:20 AM EST 03/30/2020 1:33 AM EST Narrative Resulting Agency Comment Spec In Lab Anjelica Lissa Nikki CARBALLON CHEMISTRY ORDERA BLES Performing Organization Address [facility] Phone Number [facility] [place] [address] * POCT Glucose (03/29/2020 8:57 PM EST) POC Glucose 154 65 - 199 mg/dL [facility] Comment: Supplemental ranges: <140 mg/dL before meals <180 mg/dL all other times of the day Blood specimen (specimen) 03/29/2020 8:57 PM EST 03/29/2020 8:57 PM EST Davian Carolina MD POINT OF CARE TEST ORDERABLES Performing Organization Address [facility] Phone Number [facility] [place] [address] * POCT Glucose (03/29/2020 4:13 PM EST) POC Glucose 181 65 - 199 mg/dL [facility] Comment: Supplemental ranges: <140 mg/dL before meals <180 mg/dL all other times of the day Blood specimen (specimen) 03/29/2020 4:13 PM EST 03/29/2020 4:13 PM EST Davian Carolina MD POINT OF CARE TEST ORDERABLES Performing Organization Address City/[facility] Co de Phone Number [facility] [place] [address] * POCT Glucose (03/29/2020 12:25 PM EST) POC Glucose 196 65 - 199 mg/dL [facility] Comment: Supplemental ranges: <140 mg/dL before meals <180 mg/dL all other times of the day Blood specimen (specimen) 03/29/2020 12:25 PM EST 03/29/2020 12:25 PM EST Davian Carolina MD POINT OF CARE TEST ORDERABLES Performing Organization Address [facility] Co de Phone Number [facility] [place] [address] * POCT Glucose (03/29/2020 8:24 AM EST) POC Glucose 171 65 - 199 mg/dL [facility] Comment: Supplemental ranges: <140 mg/dL before meals <180 mg/dL all other times of the day Blood specimen (specimen) 03/29/2020 8:24 AM EST 03/29/2020 8:24 AM EST Davian Carolina MD POINT OF CARE TEST ORDERABLES Performing Organization Address [facility] Co de Phone Number [facility] [place] [address] * POCT Glucose (03/29/2020 4:22 AM EST) POC Glucose 151 65 - 199 mg/dL [facility] Comment: Supplemental ranges: <140 mg/dL before meals <180 mg/dL all other times of the day Blood specimen (specimen) 03/29/2020 4:22 AM EST 03/29/2020 4:22 AM EST Davian Carolina MD POINT OF CARE TEST ORDERABLES [facility] [place] [address] * Phosphorus (03/29/2020 2:30 AM EST) Phosphorus 3.0 2.5 - 4.5 mg/dL [facility] Blood specimen (specimen) 03/29/2020 2:30 AM EST 03/29/2020 2:46 AM EST Narrative Resulting Agency Comment Spec In Lab Davian Carolina MD CHEMISTRY ORDERABL ES Performing Organization Address [facility] Co de Phone Number [facility] [place] [address] * Magnesium (03/29/2020 2:30 AM EST) Pathologist [facility] Magnesium 0.86 0.69 - 1.07 mmol/L [facility] Blood specimen (specimen) 03/29/2020 2:30 AM EST 03/29/2020 2:46 AM EST Narrative Resulting Agency Comment Spec In Lab Davian Carolina MD CHEMISTRY ORDERABL ES Performing Organization Address [facility] de Phone Number [facility] [place] [address] * (ABNORMAL) Basic Metabolic Panel (non-fasting) (03/29/2020 2:30 AM EST) Pathologist [facility] Glucose Lvl 163 65 - 199 mg/dL [...] MD CHEMISTRY ORDERABL ES Performing Organization Address City/State/[facility] Co de Phone Number [facility] [place] [address] * Differential, Automated (03/29/2020 1:20 AM EST) Neutrophils % 71.0 % [facility] LABORATORY Neutr Abs (ANC) 4.85 1.70 - 6.10 x10(3)/[facility] LABORATORY Lymphocytes % 15.4 % [facility] LABORATORY Lymphocytes Abs 1.0 0.9 - 3.2 x10(3)/[facility] LABORATORY Monocytes % 10.1 % [facility] LABORATORY Monocyte Abs 0.7 0.3 - 0.9 x10(3)/[facility] LABORATORY Eosinophils % 2.6 % [facility] LABORATORY Eosinophils Abs 0.2 0.0 - 0.4 x10(3)/[facility] LABORATORY Basophils % 0.3 % [facility] LABORAT[facility] Basophils Abs 0.0 0.0 - 0.1 x10(3)/[facility] LABORATORY Immature Gran % 0.60 % [facility] Comment: Immature granulocytes(IG's)percentage and absolute count will include metamyelocytes, myelocytes, and promyelocytes. Blood smears from CBCs yielding IG's will be scanned manually for concordance. If this scan disagrees with the automated IG or if promyelocytes are noted, a manual differential will be performed. Nory Gran Abs 0.04 0.00 - 0.04 x10(3)/[facility] LABORATORY Blood specimen (specimen) 03/29/2020 1:20 AM EST 03/29/2020 1:42 AM EST Narrative Resulting Agency Comment Spec In Lab Anjelica Jrodan APRN HEMATOLOGY ORDER MAGAN Performing Organization Address City/State/[facility] Co de Phone Number [facility] [place] [address] * (ABNORMAL) Hemogram (03/29/2020 1:20 AM EST) WBC 6.8 4.0 - 9.5 x10(3)/[facility] LABORATORY RBC 3.37(L) 4.00 - 5.21 x10(6)/[facility] LABORATORY Hemoglobin 11.3(L) 11.7 - 15.5 gm/dL [facility] Hematocrit 31.8(L) 35.7 - 45.8 % [facility] MCV 94.4 82.6 - 94.4 fL [facility] MCH 33.5(H) 27.1 - 32.0 pg [facility] MCHC 35.5(H) 31.7 - 35.0 gm/dL [facility] Platelets 176 145 - 357 x10(3)/[facility] LABORATORY RDWSD 43.8 37.0 - 46.0 fL [facility] RDWCV 12.6 11.5 - 14.1 % [facility] MPV 10.4 7.6 - 12.9 fL [facility] nRBC % Auto 0.0 % [facility] nRBC Abs Auto 0.000 0.000 - 0.000 x10(3)/mcL [facility]OR[facility] Blood specimen (specimen) 03/29/2020 1:20 AM EST 03/29/2020 1:42 AM EST Narrative Resulting Agency Comment Spec In Lab Anjelica Jordan APRN HEMATOLOGY ORDER MAGAN Performing Organization Address City/[facility]/ZIP Co de Phone Number [facility] [place] [address] * POCT Glucose (03/29/2020 12:05 AM EST) POC Glucose 142 65 - 199 mg/dL [facility] Comment: Supplemental ranges: <140 mg/dL before meals <180 mg/dL all other times of the day Blood specimen (specimen) 03/29/2020 12:05 AM EST 03/29/2020 12:05 AM EST Davian Carolina MD POINT OF CARE TEST ORDERABLES Performing Organization Address City/[facility] Co de Phone Number [facility] [place] [address] * POCT Glucose (03/28/2020 7:28 PM EST) POC Glucose 174 65 - 199 mg/dL [facility] Comment: Supplemental ranges: <140 mg/dL before meals <180 mg/dL all other times of the day Blood specimen (specimen) 03/28/2020 7:28 PM EST 03/28/2020 7:28 PM EST Davian Carolina MD POINT OF CARE TEST ORDERABLES Performing Organization Address City/[facility]/ZIP Co de Phone Number [facility] [place] [address] * POCT Glucose (03/28/2020 4:01 PM EST) POC Glucose 190 65 - 199 mg/dL [facility] Comment: Supplemental ranges: <140 mg/dL before meals <180 mg/dL all other times of the day Blood specimen (specimen) 03/28/2020 4:01 PM EST 03/28/2020 4:01 PM EST Davian Carolina MD POINT OF CARE TEST ORDERABLES Performing Organization Address City/[facility]/ZIP Co de Phone Number [facility] [place] [address] * POCT Glucose (03/28/2020 11:34 AM EST) POC Glucose 188 65 - 199 mg/dL [facility] Comment: Supplemental ranges: <140 mg/dL before meals <180 mg/dL all other times of the day Blood specimen (specimen) 03/28/2020 11:34 AM EST 03/28/2020 11:34 AM EST Davian Carolina MD POINT OF CARE TEST ORDERABLES Performing Organization Address City/[facility] Co de Phone Number [facility] [place] [address] * POCT Glucose (03/28/2020 7:30 AM EST) POC Glucose 180 65 - 199 mg/dL [facility] Comment: Supplemental ranges: <140 mg/dL before meals <180 mg/dL all other times of the day Blood specimen (specimen) 03/28/2020 7:30 AM EST 03/28/2020 7:30 AM EST Davian Carolina MD POINT OF CARE TEST ORDERABLES Performing Organization Address City/[facility]/ZIP Co de Phone Number [facility] [place] [address] * Amylase Level Body Fluid KHRIS Drain (03/28/2020 4:00 AM EST) Pathologist [facility] Amylase, BF 12 unit/L [facility] Comment: No reference range is available [...] AND ST OOLS ORDERABLES Performing Organization Address City/[facility]/ZIP Co de Phone Number [facility] [place] [address] * (ABNORMAL) POCT Glucose (03/28/2020 3:57 AM EST) [facility] POC Glucose 200(H) 65 - 199 mg/dL [facility] Comment: Supplemental ranges: <140 mg/dL before meals <180 mg/dL all other times of the day Blood specimen (specimen) 03/28/2020 3:57 AM EST 03/28/2020 3:57 AM EST Davian Carolina MD POINT OF CARE TEST ORDERABLES Performing Organization Address City/[facility]/ZIP Co de Phone Number [facility] [place] [address] * Differential, Automated (03/28/2020 1:45 AM EST) [facility] Neutrophils % 69.0 % [facility] LABORATORY Neutr Abs (ANC) 4.74 1.70 - 6.10 x10(3)/[facility] LABORATORY Lymphocytes % 16.0 % [facility] LABORATORY Lymphocytes Abs 1.1 0.9 - 3.2 x10(3)/[facility] LABORATORY Monocytes % 10.3 % [facility] LABOR[facility] Monocyte Abs 0.7 0.3 - 0.9 x10(3)/[facility] LABORATORY Eosinophils % 4.1 % [facility] LABORATORY Eosinophils Abs 0.3 0.0 - 0.4 x10(3)/[facility] LABORATORY Basophils % 0.3 % [facility] Basophils Abs 0.0 0.0 - 0.1 x10(3)/[facility] Immature Gran % 0.30 % [facility] Comment: Immature granulocytes(IG's)percentage and absolute count will include metamyelocytes, myelocytes, and promyelocytes. Blood smears from CBCs yielding IG's will be scanned manually for concordance. If this scan disagrees with the automated IG or if promyelocytes are noted, a manual differential will be performed. Nory Gran Abs 0.02 0.00 - 0.04 x10(3)/[facility] LABORATORY Blood specimen (specimen) 03/28/2020 1:45 AM EST 03/28/2020 1:52 AM EST Narrative Resulting Agency Comment Spec In Lab Anjelica Jordan APRN HEMATOLOGY ORDER MAGAN [facility] [place] [address] * (ABNORMAL) Hemogram (03/28/2020 1:45 AM EST) WBC 6.9 4.0 - 9.5 x10(3)/[facility] LABORATORY RBC 3.68(L) 4.00 - 5.21 x10(6)/[facility] LABORATORY Hemoglobin 11.3(L) 11.7 - 15.5 gm/dL [facility] Hematocrit 33.4(L) 35.7 - 45.8 % [facility] MCV 90.8 82.6 - 94.4 fL [facility] MCH 30.7 27.1 - 32.0 pg [facility] MCHC 33.8 31.7 - 35.0 gm/dL [facility] Platelets 205 145 - 357 x10(3)/[facility] RDWSD 40.5 37.0 - 46.0 fL [facility] RDWCV 12.1 11.5 - 14.1 % [facility] MPV 10.0 7.6 - 12.9 fL [facility] nRBC % Auto 0.0 % [facility] nRBC Abs Auto 0.000 0.000 - 0.000 x10(3)/mcL [facility] Blood specimen (specimen) 03/28/2020 1:45 AM EST 03/28/2020 1:52 AM EST Narrative Resulting Agency Comment Spec In Lab Anjelica Jordan APRN HEMATOLOGY ORDER MAGAN Performing Organization Address City/State/[facility] Co de Phone Number [facility] [place] [address] * (ABNORMAL) BMP w/fasting Glucose (03/28/2020 1:45 [...] of Diabetes Mellitus, Position Statement from the [employer]. ??Diabetes Care, Volume 33, Supplement [...] MD CHEMISTRY ORDERABL ES Performing Organization Address [facility] Co de Phone Number [facility] [place] [address] * Phosphorus (03/28/2020 1:45 AM EST) Phosphorus 2.9 2.5 - 4.5 mg/dL [facility] Blood specimen (specimen) 03/28/2020 1:45 AM EST 03/28/2020 1:52 AM EST Narrative Resulting Agency Comment Spec In Lab Anjelica Jordan APRN CHEMISTRY ORDERA BLES Performing Organization Address [facility]/State/ZIP Co de Phone Number [facility] [place] [address] * Magnesium (03/28/2020 1:45 AM EST) Magnesium 0.87 0.69 - 1.07 mmol/L [facility] Blood specimen (specimen) 03/28/2020 1:45 AM EST 03/28/2020 1:52 AM EST Narrative Resulting Agency Comment Spec In Lab Anjelica Jordan APRN CHEMISTRY ORDERA BLES Performing Organization Address [facility] Co de Phone Number [facility] [place] [address] * (ABNORMAL) Amylase (03/28/2020 1:45 AM EST) [facility] Amylase 18(L) 28 - 100 unit/L [facility] Blood specimen (specimen) 03/28/2020 1:45 AM EST 03/28/2020 1:52 AM EST Narrative Resulting Agency Comment Spec In Lab Anjelica Jordan APRN CHEMISTRY ORDERA BLES Performing Organization Address [facility] Co de Phone Number [facility] [place] [address] * POCT Glucose (03/28/2020 12:03 AM EST) [facility] POC Glucose 157 65 - 199 mg/dL [facility] Comment: Supplemental ranges: <140 mg/dL before meals <180 mg/dL all other times of the day Blood specimen (specimen) 03/28/2020 12:03 AM EST 03/28/2020 12:03 AM EST Davian Carolina MD POINT OF CARE TEST ORDERABLES Performing Organization Address [facility]/ZIP Co de Phone Number [facility] [place] [address] * POCT Glucose (03/27/2020 8:06 PM EST) Pathologist [facility] POC Glucose 84 65 - 199 mg/dL [facility] Comment: Supplemental ranges: <140 mg/dL before meals <180 mg/dL all other times of the day Blood specimen (specimen) 03/27/2020 8:06 PM EST 03/27/2020 8:06 PM EST Davian Carolina MD POINT OF CARE TEST ORDERABLES [facility] [place] [address] * POCT Glucose (03/27/2020 4:16 PM EST) POC Glucose 190 65 - 199 mg/dL [facility] Comment: Supplemental ranges: <140 mg/dL before meals <180 mg/dL all other times of the day Blood specimen (specimen) 03/27/2020 4:16 PM EST 03/27/2020 4:16 PM EST Davian Carolina MD POINT OF CARE TEST ORDERABLES Performing Organization Address City/[facility]/ZIP Co de Phone Number [facility] [place] [address] * POCT Glucose (03/27/2020 11:28 AM EST) POC Glucose 92 65 - 199 mg/dL [facility] Comment: Supplemental ranges: <140 mg/dL before meals <180 mg/dL all other times of the day Blood specimen (specimen) 03/27/2020 11:28 AM EST 03/27/2020 11:28 AM EST Davian Carolina MD POINT OF CARE TEST ORDERABLES [facility] [place] [address] * POCT Glucose (03/27/2020 7:52 AM EST) POC Glucose 71 65 - 199 mg/dL [facility] Comment: Supplemental ranges: <140 mg/dL before meals <180 mg/dL all other times of the day Blood specimen (specimen) 03/27/2020 7:52 AM EST 03/27/2020 7:52 AM EST Davian Carolina MD POINT OF CARE TEST ORDERABLES Performing Organization Address [facility] de Phone Number [facility] [place] [address] * POCT Glucose (03/27/2020 4:12 AM EST) POC Glucose 74 65 - 199 mg/dL [facility] Comment: Supplemental ranges: <140 mg/dL before meals <180 mg/dL all other times of the day Blood specimen (specimen) 03/27/2020 4:12 AM EST 03/27/2020 4:12 AM EST Davian Carolina MD POINT OF CARE TEST ORDERABLES Performing Organization Address [facility] Phone Number [facility] [place] [address] * Amylase Level Body Fluid KHRIS Drain (03/27/2020 3:28 AM EST) Amylase, BF 327 unit/L [facility] Comment: No reference range is available [...] AND ST OOLS ORDERABLES Performing Organization Address [facility] de Phone Number [facility] [place] [address] * Differential, Automated (03/27/2020 3:20 AM EST) Neutrophils % 66.9 % [facility] Neutr Abs (ANC) 5.08 1.70 - 6.10 x10(3)/[facility] LABORATORY Lymphocytes % 18.2 % [facility] Lymphocytes Abs 1.4 0.9 - 3.2 x10(3)/[facility] LABORATORY Monocytes % 9.5 % [facility] Monocyte Abs 0.7 0.3 - 0.9 x10(3)/[facility] LABORATORY Eosinophils % 4.6 % [facility] Eosinophils Abs 0.4 0.0 - 0.4 x10(3)/[facility] LABORATORY Basophils % 0.5 % [facility] Basophils Abs 0.0 0.0 - 0.1 x10(3)/[facility] LABORATORY Immature Gran % 0.30 % [facility] Comment: Immature granulocytes(IG's)percentage and absolute count will include metamyelocytes, myelocytes, and promyelocytes. Blood smears from CBCs yielding IG's will be scanned manually for concordance. If this scan disagrees with the automated IG or if promyelocytes are noted, a manual differential will be performed. Nory Gran Abs 0.02 0.00 - 0.04 x10(3)/[facility] LABORATORY Blood specimen (specimen) 03/27/2020 3:20 AM EST 03/27/2020 3:35 AM EST Narrative Resulting Agency Comment Spec In Lab Anjelica Jordan APRN HEMATOLOGY ORDER MAGAN [facility] [place] [address] * (ABNORMAL) Hemogram (03/27/2020 3:20 AM EST) WBC 7.6 4.0 - 9.5 x10(3)/[facility] LABORATORY RBC 3.82(L) 4.00 - 5.21 x10(6)/[facility] LABORATORY Hemoglobin 11.7 11.7 - 15.5 gm/dL [facility] Hematocrit 35.5(L) 35.7 - 45.8 % [facility] MCV 92.9 82.6 - 94.4 [facility] LABORATORY MCH 30.6 27.1 - 32.0 pg [facility] MCHC 33.0 31.7 - 35.0 gm/dL [facility] Platelets 198 145 - 357 x10(3)/[facility] LABORATORY RDWSD 42.6 37.0 - 46.0 [facility] LABORATORY RDWCV 12.5 11.5 - 14.1 % [facility] MPV 10.1 7.6 - 12.9 [facility] LABORATORY nRBC % Auto 0.0 % [facility] nRBC Abs Auto 0.000 0.000 - 0.000 x10(3)/[facility] LABORATORY Blood specimen (specimen) 03/27/2020 3:20 AM EST 03/27/2020 3:35 AM EST Narrative Resulting Agency Comment Spec In Lab Anjelica Jordan APRN HEMATOLOGY ORDER MAGAN Performing Organization Address City/[facility]/ZIP Co de Phone Number [facility] [place] [address] * Phosphorus (03/27/2020 3:20 AM EST) Phosphorus 3.1 2.5 - 4.5 mg/dL [facility] Blood specimen (specimen) 03/27/2020 3:20 AM EST 03/27/2020 3:35 AM EST Narrative Resulting Agency Comment Spec In Lab Anjelica Jordan APRN CHEMISTRY ORDERA BLES Performing Organization Address City/[facility] Co de Phone Number [facility] [place] [address] * Magnesium (03/27/2020 3:20 AM EST) Magnesium 0.87 0.69 - 1.07 mmol/L [facility] Blood specimen (specimen) 03/27/2020 3:20 AM EST 03/27/2020 3:35 AM EST Narrative Resulting Agency Comment Spec In Lab Anjelica Jordan JESUS ALBERTO CHEMISTRY ORDERA BLES [facility] [place] [address] * (ABNORMAL) Comprehensive metabolic panel (non-fasting) (03/27/2020 [...] Agency Comment Spec In Lab Anjelica Jordan FIELD PROFESSIONAL CHEMISTRY ORDERA BLES Performing Organization Address [facility] Co de Phone Number [facility] [place] [address] * (ABNORMAL) Amylase (03/27/2020 3:20 AM EST) Amylase 25(L) 28 - 100 unit/L [facility] Blood specimen (specimen) 03/27/2020 3:20 AM EST 03/27/2020 3:35 AM EST Narrative Resulting Agency Comment Spec In Lab Anjelica Jordan FIELD PROFESSIONAL CHEMISTRY ORDERA BLES Performing Organization Address [facility] Co de Phone Number [facility] [place] [address] * POCT Glucose (03/27/2020 3:19 AM EST) POC Glucose 73 65 - 199 mg/dL [facility] Comment: Supplemental ranges: <140 mg/dL before meals <180 mg/dL all other times of the day Blood specimen (specimen) 03/27/2020 3:19 AM EST 03/27/2020 3:19 AM EST Davian Carolina MD POINT OF CARE TEST ORDERABLES Performing Organization Address [facility] de Phone Number [facility] [place] [address] * POCT Glucose (03/27/2020 12:03 AM EST) POC Glucose 93 65 - 199 mg/dL [facility] Comment: Supplemental ranges: <140 mg/dL before meals <180 mg/dL all other times of the day Blood specimen (specimen) 03/27/2020 12:03 AM EST 03/27/2020 12:03 AM EST Davian Carolina MD POINT OF CARE TEST ORDERABLES Performing Organization Address [facility] Phone Number [facility] [place] [address] * POCT Glucose (03/26/2020 9:10 PM EST) POC Glucose 96 65 - 199 mg/dL [facility] Comment: Supplemental ranges: <140 mg/dL before meals <180 mg/dL all other times of the day Blood specimen (specimen) 03/26/2020 9:10 PM EST 03/26/2020 9:10 PM EST Davian Carolina MD POINT OF CARE TEST ORDERABLES Performing Organization Address [facility] de Phone Number [facility] [place] [address] * POCT Glucose (03/26/2020 7:52 PM EST) POC Glucose 74 65 - 199 mg/dL [facility] Comment: Supplemental ranges: <140 mg/dL before meals <180 mg/dL all other times of the day Blood specimen (specimen) 03/26/2020 7:52 PM EST 03/26/2020 7:52 PM EST Davian Carolina MD POINT OF CARE TEST ORDERABLES Performing Organization Address [facility] de Phone Number [facility] [place] [address] * POCT Glucose (03/26/2020 3:59 PM EST) POC Glucose 87 65 - 199 mg/dL [facility] Comment: Supplemental ranges: <140 mg/dL before meals <180 mg/dL all other times of the day Blood specimen (specimen) 03/26/2020 3:59 PM EST 03/26/2020 3:59 PM EST Davian Carolina MD POINT OF CARE TEST ORDERABLES Performing Organization Address [facility] de Phone Number [facility] [place] [address] * POCT Glucose (03/26/2020 11:39 AM EST) POC Glucose 87 65 - 199 mg/dL [facility] Comment: Supplemental ranges: <140 mg/dL before meals <180 mg/dL all other times of the day Blood specimen (specimen) 03/26/2020 11:39 AM EST 03/26/2020 11:39 AM EST Davian Carolina MD POINT OF CARE TEST ORDERABLES Performing Organization Address [facility] de Phone Number [facility] [place] [address] * CT Angiogram Abdomen w Contrast (03/26/2020 [...] ? Electronically signed by: Raimundo Mccurdy MD, [facility] ([phone]), at 03/26/2020 11:23 AM Narrative 03/26/2020 11:23 [...] below. Electronically signed by: Raimundo Mccurdy MD, [facility]([phone]), at 03/26/2020 11:23 AM Davian Carolina MD IMG CT ORDERABLES * POCT Glucose (03/26/2020 7:32 AM EST) Pathologist [facility] POC Glucose 109 65 - 199 mg/dL [facility] Comment: Supplemental ranges: <140 mg/dL before meals <180 mg/dL all other times of the day Blood specimen (specimen) 03/26/2020 7:32 AM EST 03/26/2020 7:32 AM EST Davian Carolina MD POINT OF CARE TEST ORDERABLES Performing Organization Address [facility]/ZIP Co de Phone Number [facility] [place] [address] * POCT Glucose (03/26/2020 3:16 AM EST) [facility] POC Glucose 134 65 - 199 mg/dL [facility] Comment: Supplemental ranges: <140 mg/dL before meals <180 mg/dL all other times of the day Blood specimen (specimen) 03/26/2020 3:16 AM EST 03/26/2020 3:16 AM EST Davian Carolina MD POINT OF CARE TEST ORDERABLES Performing Organization Address City/[facility]/ZIP Co de Phone Number [facility] [place] [address] * (ABNORMAL) Differential, Automated (03/26/2020 1:45 AM EST) Pathologist [facility] Neutrophils % 79.2 % [facility] Neutr Abs (ANC) 7.42(H) 1.70 - 6.10 x10(3)/mc L [facility] Lymphocytes % 11.3 % [facility] Lymphocytes Abs 1.1 0.9 - 3.2 x10(3)/mc L [facility] Monocytes % 8.3 % [facility] Monocyte Abs 0.8 0.3 - 0.9 x10(3)/mc L [facility] Eosinophils % 0.6 % [facility] Eosinophils Abs 0.1 0.0 - 0.4 x10(3)/[facility] LABORATORY Basophils % 0.3 % [facility] Basophils Abs 0.0 0.0 - 0.1 x10(3)/[facility] LABORATORY Immature Gran % 0.30 % [facility] Comment: Immature granulocytes(IG's)percentage and absolute count will include metamyelocytes, myelocytes, and promyelocytes. Blood smears from CBCs yielding IG's will be scanned manually for concordance. If this scan disagrees with the automated IG or if promyelocytes are noted, a manual differential will be performed. Nory Gran Abs 0.03 0.00 - 0.04 x10(3)/[facility] LABORATORY Blood specimen (specimen) 03/26/2020 1:45 AM EST 03/26/2020 1:56 AM EST Narrative Resulting Agency Comment Spec In Lab Anjelica Jordan APRN HEMATOLOGY ORDER MAGAN [facility] [place] [address] * (ABNORMAL) Hemogram (03/26/2020 1:45 AM EST) WBC 9.4 4.0 - 9.5 x10(3)/[facility] LABORATORY RBC 3.74(L) 4.00 - 5.21 x10(6)/[facility] LABORATORY Hemoglobin 11.4(L) 11.7 - 15.5 gm/dL [facility] Hematocrit 34.3(L) 35.7 - 45.8 % [facility] MCV 91.7 82.6 - 94.4 fL [facility] MCH 30.5 27.1 - 32.0 pg [facility] MCHC 33.2 31.7 - 35.0 gm/dL [facility] Platelets 168 145 - 357 x10(3)/[facility] LABORATORY RDWSD 42.4 37.0 - 46.0 [facility] LABORATORY RDWCV 12.6 11.5 - 14.1 % [facility] MPV 10.2 7.6 - 12.9 [facility] LABORATORY nRBC % Auto 0.0 % [facility] nRBC Abs Auto 0.000 0.000 - 0.000 x10(3)/[facility] LABORATORY Blood specimen (specimen) 03/26/2020 1:45 AM EST 03/26/2020 1:56 AM EST Narrative Resulting Agency Comment Spec In Lab Anjelica Jordan APRN HEMATOLOGY ORDER MAGAN Performing Organization Address [facility] Co de Phone Number [facility] [place] [address] * (ABNORMAL) Phosphorus (03/26/2020 1:45 AM EST) Phosphorus 2.3(L) 2.5 - 4.5 mg/dL [facility] Blood specimen (specimen) 03/26/2020 1:45 AM EST 03/26/2020 1:56 AM EST Narrative Resulting Agency Comment Spec In Lab Anjelica Jordan FIELD PROFESSIONAL CHEMISTRY ORDERA BLES Performing Organization Address [facility] Co de Phone Number [facility] [place] [address] * Magnesium (03/26/2020 1:45 AM EST) Magnesium 0.82 0.69 - 1.07 mmol/L [facility] Blood specimen (specimen) 03/26/2020 1:45 AM EST 03/26/2020 1:56 AM EST Narrative Resulting Agency Comment Spec In Lab Anjelica Jordan FIELD PROFESSIONAL CHEMISTRY ORDERA BLES Performing Organization Address City/[facility] Co de Phone Number [facility] [place] [address] * (ABNORMAL) Comprehensive metabolic panel (non-fasting) (03/26/2020 [...] Agency Comment Spec In Lab Anjelica Jordan FIELD PROFESSIONAL CHEMISTRY ORDERA BLES Performing Organization Address [facility] Co de Phone Number [facility] [place] [address] * (ABNORMAL) Amylase (03/26/2020 1:45 AM EST) Amylase 22(L) 28 - 100 unit/L [facility] Blood specimen (specimen) 03/26/2020 1:45 AM EST 03/26/2020 1:56 AM EST Narrative Resulting Agency Comment Spec In Lab Anjelica Jordan FIELD PROFESSIONAL CHEMISTRY ORDERA BLES Performing Organization Address [facility] Phone Number [facility] [place] [address] * Amylase Level Body Fluid KHRIS Drain (03/26/2020 1:36 AM EST) Amylase, BF 15 unit/L [facility] Comment: No reference range is available [...] AND ST [facility] ORDERABLES Performing Organization Address [facility] Co de Phone Number [facility] [place] [address] * POCT Glucose (03/25/2020 11:11 PM EST) POC Glucose 128 65 - 199 mg/dL [facility] Comment: Supplemental ranges: <140 mg/dL before meals <180 mg/dL all other times of the day Blood specimen (specimen) 03/25/2020 11:11 PM EST 03/25/2020 11:11 PM EST Davian Carolina MD POINT OF CARE TEST ORDERABLES Performing Organization Address City/[facility]/ZIP Co de Phone Number [facility] [place] [address] * POCT Glucose (03/25/2020 7:53 PM EST) POC Glucose 142 65 - 199 mg/dL [facility] Comment: Supplemental ranges: <140 mg/dL before meals <180 mg/dL all other times of the day Blood specimen (specimen) 03/25/2020 7:53 PM EST 03/25/2020 7:53 PM EST Davian Carolina MD POINT OF CARE TEST ORDERABLES Performing Organization Address [facility]/ZIP Co de Phone Number [facility] [place] [address] * POCT Glucose (03/25/2020 4:23 PM EST) POC Glucose 149 65 - 199 mg/dL [facility] Comment: Supplemental ranges: <140 mg/dL before meals <180 mg/dL all other times of the day Blood specimen (specimen) 03/25/2020 4:23 PM EST 03/25/2020 4:23 PM EST Davian Carolina MD POINT OF CARE TEST ORDERABLES Performing Organization Address [facility]/ZIP Co de Phone Number [facility] [place] [address] * POCT Glucose (03/25/2020 12:36 PM EST) POC Glucose 132 65 - 199 mg/dL [facility] Comment: Supplemental ranges: <140 mg/dL before meals <180 mg/dL all other times of the day Blood specimen (specimen) 03/25/2020 12:36 PM EST 03/25/2020 12:36 PM EST Davian Carolina MD POINT OF CARE TEST ORDERABLES Performing Organization Address [facility]/ZIP Co de Phone Number [facility] [place] [address] * (ABNORMAL) Urinalysis Microscopic Exam (03/25/2020 10:21 AM EST) Pathologist [facility] RBC UA 5(H) 0 - 4 /HPF [facility] WBC UA 3 0 - 5 /HPF [facility] Squam Epith UA 1 <=4 /HPF [facility] Hyaline Cast UA 8(H) 0 - 2 /LPF [facility] Urine specimen obtained via indwelling urinary catheter (specimen) 03/25/2020 10:21 AM EST 03/25/2020 11:31 AM EST Narrative Resulting Agency Comment Spec In Lab Anjelica Jordan APRN URINE ORDERABLES Performing Organization Address [facility] Co de Phone Number [facility] [place] [address] * (ABNORMAL) Urinalysis with reflex Culture (03/25/2020 [facility] Leukocytes UA Trace(A) Negative [facility] LABORATORY Appearance UA Clear Clear [facility] Spec [place] UA 1.016 1.006 - 1.030 [facility] Color UA Yellow Yellow [facility] Culture Reflexed No [facility] Urine specimen obtained via indwelling urinary catheter (specimen) 03/25/2020 10:21 AM EST 03/25/2020 11:31 AM EST Narrative Resulting Agency Comment Spec In Lab Anjelica Jordan APRN URINE ORDERABLES Performing Organization Address [facility]/ZIP Co de Phone Number [facility] [place] [address] * POCT Glucose (03/25/2020 7:50 AM EST) POC Glucose 114 65 - 199 mg/dL [facility] Comment: Supplemental ranges: <140 mg/dL before meals <180 mg/dL all other times of the day Blood specimen (specimen) 03/25/2020 7:50 AM EST 03/25/2020 7:50 AM EST Davian Carolina MD POINT OF CARE TEST ORDERABLES [facility] [place] [address] * POCT Glucose (03/25/2020 4:06 AM EST) POC Glucose 108 65 - 199 mg/dL [facility] Comment: Supplemental ranges: <140 mg/dL before meals <180 mg/dL all other times of the day Blood specimen (specimen) 03/25/2020 4:06 AM EST 03/25/2020 4:06 AM EST Davian Carolina MD POINT OF CARE TEST ORDERABLES Performing Organization Address [facility] Co de Phone Number [facility] [place] [address] * Amylase Level Body Fluid KHRIS Drain (03/25/2020 3:53 AM EST) Pathologist [facility] Amylase, BF 22 unit/L [facility] Comment: No reference range is available [...] AND ST OOLS ORDERABLES Performing Organization Address [facility] Co de Phone Number [facility] [place] [address] * (ABNORMAL) Differential, Automated (03/25/2020 1:55 AM EST) [facility] Neutrophils % 82.1 % [facility] Neutr Abs (ANC) 11.43(H) 1.70 - 6.10 x10(3)/mc L [facility] Lymphocytes % 10.1 % [facility] Lymphocytes Abs 1.4 0.9 - 3.2 x10(3)/mc L [facility] Monocytes % 6.9 % [facility] Monocyte Abs 1.0(H) 0.3 - 0.9 x10(3)/mc L [facility] Eosinophils % 0.3 % [facility] Eosinophils Abs 0.0 0.0 - 0.4 x10(3)/mc L [facility] Basophils % 0.2 % [facility] Basophils Abs 0.0 0.0 - 0.1 x10(3)/ L [facility] Immature Gran [...] Nory Gran Abs 0.06(H) 0.00 - 0.04 x10(3)/[facility] LABORATORY Blood specimen (specimen) 03/25/2020 1:55 AM EST 03/25/2020 2:04 AM EST Narrative Resulting Agency Comment Spec In Lab Anjelica Jordan APRN HEMATOLOGY ORDER MAGAN [facility] [place] [address] * (ABNORMAL) Hemogram (03/25/2020 1:55 AM EST) WBC 13.9(H) 4.0 - 9.5 x10(3)/[facility] LABORATORY RBC 3.65(L) 4.00 - 5.21 x10(6)/[facility] LABORATORY Hemoglobin 11.2(L) 11.7 - 15.5 gm/dL [facility] Hematocrit 33.5(L) 35.7 - 45.8 % [facility] MCV 91.8 82.6 - 94.4 fL [facility] MCH 30.7 27.1 - 32.0 pg [facility] MCHC 33.4 31.7 - 35.0 gm/dL [facility] Platelets 203 145 - 357 x10(3)/[facility] RDWSD 42.5 37.0 - 46.0 fL [facility] RDWCV 12.7 11.5 - 14.1 % [facility] MPV 9.9 7.6 - 12.9 fL [facility] nRBC % Auto 0.0 % [facility] nRBC Abs Auto 0.000 0.000 - 0.000 x10(3)/mcL [facility] Blood specimen (specimen) 03/25/2020 1:55 AM EST 03/25/2020 2:04 AM EST Narrative Resulting Agency Comment Spec In Lab Anjelica Jordan APRN HEMATOLOGY ORDER MAGAN Performing Organization Address [facility]/ZIP Co de Phone Number [facility] [place] [address] * (ABNORMAL) Phosphorus (03/25/2020 1:55 AM EST) Phosphorus 1.6(L) 2.5 - 4.5 mg/dL [facility] Blood specimen (specimen) 03/25/2020 1:55 AM EST 03/25/2020 2:04 AM EST Narrative Resulting Agency Comment Spec In Lab Anjelica Jordan FIELD PROFESSIONAL CHEMISTRY ORDERA BLES Performing Organization Address [facility]/ZIP Co de Phone Number [facility] [place] [address] * Magnesium (03/25/2020 1:55 AM EST) Magnesium 0.78 0.69 - 1.07 mmol/L [facility] Blood specimen (specimen) 03/25/2020 1:55 AM EST 03/25/2020 2:04 AM EST Narrative Resulting Agency Comment Spec In Lab Anjelica Jordan FIELD PROFESSIONAL CHEMISTRY ORDERA BLES Performing Organization Address [facility] Co de Phone Number [facility] [place] [address] * (ABNORMAL) Comprehensive metabolic panel (non-fasting) (03/25/2020 1:55 AM EST) Glucose Lvl 116 65 - 199 mg/dL [...] Agency Comment Spec In Lab Anjelica Jordan FIELD PROFESSIONAL CHEMISTRY ORDERA BLES Performing Organization Address [facility] de Phone Number [facility] [place] [address] * Amylase (03/25/2020 1:55 AM EST) Amylase 31 28 - 100 unit/L [facility] Blood specimen (specimen) 03/25/2020 1:55 AM EST 03/25/2020 2:04 AM EST Narrative Resulting Agency Comment Spec In Lab Anjelica Jordan FIELD PROFESSIONAL CHEMISTRY ORDERA BLES Performing Organization Address [facility] Phone Number [facility] [place] [address] * POCT Glucose (03/24/2020 11:38 PM EST) POC Glucose 117 65 - 199 mg/dL [facility] Comment: Supplemental ranges: <140 mg/dL before meals <180 mg/dL all other times of the day Blood specimen (specimen) 03/24/2020 11:38 PM EST 03/24/2020 11:38 PM EST Davian Carolina MD POINT OF CARE TEST ORDERABLES Performing Organization Address [facility] Co de Phone Number [facility] [place] [address] * POCT Glucose (03/24/2020 8:17 PM EST) POC Glucose 109 65 - 199 mg/dL [facility] Comment: Supplemental ranges: <140 mg/dL before meals <180 mg/dL all other times of the day Blood specimen (specimen) 03/24/2020 8:17 PM EST 03/24/2020 8:17 PM EST Davian Carolina MD POINT OF CARE TEST ORDERABLES Performing Organization Address [facility] de Phone Number [facility] [place] [address] * Potassium (03/24/2020 5:40 PM EST) Pathologist [facility] Potassium 4.1 3.5 - 5.0 mmol/L [facility] [...] Agency Comment Spec In Lab Anjelica Jordan FIELD PROFESSIONAL CHEMISTRY ORDERA BLES Performing Organization Address [facility] de Phone Number [facility] [place] [address] * (ABNORMAL) Aspartate Aminotransferase (03/24/2020 5:40 PM EST) [facility] AST 137(H) 0 - 30 unit/L [facility] Blood specimen (specimen) 03/24/2020 5:40 PM EST 03/24/2020 6:02 PM EST Narrative Resulting Agency Comment Spec In Lab Anjelica Jordan FIELD PROFESSIONAL CHEMISTRY ORDERA BLES Performing Organization Address [facility] Co de Phone Number [facility] [place] [address] * POCT Glucose (03/24/2020 5:13 PM EST) Pathologist [facility] POC Glucose 112 65 - 199 mg/dL [facility] Comment: Supplemental ranges: <140 mg/dL before meals <180 mg/dL all other times of the day Blood specimen (specimen) 03/24/2020 5:13 PM EST 03/24/2020 5:13 PM EST Davian Carolina MD POINT OF CARE TEST ORDERABLES [facility] [place] [address] * Place PICC Line: Contact Vascular Access Page [id number] Extremity to exclude: DO NOT use RIGHT [...] to the planned procedure. Hand Hygiene: The customer relations consultant did perform hand hygiene prior to line insertion. Catheter type: PICC Lot number: [id number] Procedure Technique: Skin was prepped with chlorhexidine. [...] ? Electronically signed by: Osmani Rhodes MD, [facility] ([phone]), at 03/24/2020 4:54 PM Narrative 03/24/2020 4:54 [...] below. Electronically signed by: Osmani Rhodes MD, [facility]([phone]), at 03/24/2020 4:54 PM Davian Carolina MD IMG FLUORO ORDERAB LES * POCT Glucose (03/24/2020 1:05 PM EST) POC Glucose 113 65 - 199 mg/dL [facility] Comment: Supplemental ranges: <140 mg/dL before meals <180 mg/dL all other times of the day Blood specimen (specimen) 03/24/2020 1:05 PM EST 03/24/2020 1:05 PM EST Davian Carolina MD POINT OF CARE TEST ORDERABLES [facility] [place] [address] * POCT Glucose (03/24/2020 9:28 AM EST) POC Glucose 155 65 - 199 mg/dL [facility] Comment: Supplemental ranges: <140 mg/dL before meals <180 mg/dL all other times of the day Blood specimen (specimen) 03/24/2020 9:28 AM EST 03/24/2020 9:28 AM EST Davian Carolina MD POINT OF CARE TEST ORDERABLES [facility] [place] [address] * (ABNORMAL) Differential, Automated (03/24/2020 8:28 AM EST) Neutrophils % 84.9 % [facility] Neutr Abs (ANC) 13.84(H) 1.70 - 6.10 x10(3)/[facility] LABORATORY Lymphocytes % 6.7 % [facility] Lymphocytes Abs 1.1 0.9 - 3.2 x10(3)/[facility] LABORATORY Monocytes % 7.9 % [facility] Monocyte Abs 1.3(H) 0.3 - 0.9 x10(3)/[facility] LABORATORY Eosinophils % 0.0 % [facility] Eosinophils Abs 0.0 0.0 - 0.4 x10(3)/[facility] LABORATORY Basophils % 0.1 % [facility] Basophils Abs 0.0 0.0 - 0.1 x10(3)/[facility] LABORATORY Immature Gran % 0.40 % [facility] Comment: Immature granulocytes(IG's)percentage and absolute count will include metamyelocytes, myelocytes, and promyelocytes. Blood smears from CBCs yielding IG's will be scanned manually for concordance. If this scan disagrees with the automated IG or if promyelocytes are noted, a manual differential will be performed. Nory Gran Abs 0.07(H) 0.00 - 0.04 x10(3)/[facility] LABORATORY Blood specimen (specimen) 03/24/2020 8:28 AM EST 03/24/2020 8:55 AM EST Narrative Resulting Agency Comment Spec In Lab Anjelica Jordan APRN HEMATOLOGY ORDER MAGAN Performing Organization Address [facility]/ZIP Co de Phone Number [facility] [place] [address] * (ABNORMAL) Hemogram (03/24/2020 8:28 AM EST) WBC 16.3(H) 4.0 - 9.5 x10(3)/[facility] [facility] RBC 3.90(L) 4.00 - 5.21 x10(6)/[facility] LABORATORY Hemoglobin 11.7 11.7 - 15.5 gm/dL [facility] Hematocrit 37.0 35.7 - 45.8 % [facility]ORAT[facility] MCV 94.9(H) 82.6 - 94.4 [facility] LABORATORY MCH 30.0 27.1 - 32.0 pg [facility] MCHC 31.6(L) 31.7 - 35.0 gm/dL [facility] Platelets 214 145 - 357 x10(3)/[facility] RDWSD 45.4 37.0 - 46.0 [facility] LABORATORY RDWCV 13.1 11.5 - 14.1 % [facility] LABORAT[facility] MPV 11.0 7.6 - 12.9 [facility] LABORATORY nRBC % Auto 0.0 % [facility] LABORATORY nRBC Abs Auto 0.000 0.000 - 0.000 x10(3)/[facility] LABORATORY Blood specimen (specimen) 03/24/2020 8:28 AM EST 03/24/2020 8:55 AM EST Narrative Resulting Agency Comment Spec In Lab Anjelica Jordan APRN HEMATOLOGY [place] [address] * (ABNORMAL) Phosphorus (03/24/2020 8:28 AM EST) Phosphorus 4.6(H) 2.5 - 4.5 mg/dL [facility] Blood specimen (specimen) 03/24/2020 8:28 AM EST 03/24/2020 8:55 AM EST Narrative Resulting Agency Comment Spec In Lab Anjelica Lissa Nikki FIELD PROFESSIONAL CHEMISTRY ORDERA BLES Performing Organization Address [facility] de Phone Number [facility] [place] [address] * Magnesium (03/24/2020 8:28 AM EST) Magnesium 1.07 0.69 - 1.07 mmol/L [facility] Comment:result rechecked-mary lou Blood specimen (specimen) 03/24/2020 8:28 AM EST 03/24/2020 8:55 AM EST Narrative Resulting Agency Comment Spec In Lab Anjelica Lissa Nikki FIELD PROFESSIONAL CHEMISTRY ORDERA BLES Performing Organization Address [facility] Phone Number [facility] [place] [address] * (ABNORMAL) Amylase (03/24/2020 8:28 AM EST) Amylase 21(L) 28 - 100 unit/L [facility] Blood specimen (specimen) 03/24/2020 8:28 AM EST 03/24/2020 8:55 AM EST Narrative Resulting Agency Comment Spec In Lab Anjelica E Nikki FIELD PROFESSIONAL CHEMISTRY ORDERA BLES Performing Organization Address [facility] Phone Number [facility] [place] [address] * (ABNORMAL) CMP w/fasting Glucose (03/24/2020 8:28 [...] of Diabetes Mellitus, Position Statement from the [employer]. ??Diabetes Care, Volume 33, Supplement [...] MD CHEMISTRY ORDERABL ES Performing Organization Address City/[facility]/ZIP Co de Phone Number [facility] [place] [address] * Amylase Level Body Fluid KHRIS Drain (03/24/2020 5:07 AM EST) Pathologist [facility] Amylase, BF 26 unit/L [facility] LABOR[facility] Comment: No reference range is available [...] AND ST OOL[facility] ORDERABLES Performing Organization Address City/[facility]/ZIP Co de Phone Number [facility] [place] [address] * Scan, Peripheral Blood (03/23/2020 6:30 PM EST) Pathologist [facility] Plat Estimate Normal [facility] LABORATORY RBC Morphology Normal [facility] Vacuolated Neut Present [facility] Platelet Clumps Present [facility] Blood specimen (specimen) 03/23/2020 6:30 PM EST 03/23/2020 6:35 PM EST Narrative Resulting Agency Comment Spec In Lab Raj Kang MD HEMATOLOGY ORDERABLE S [facility] [place] [address] * (ABNORMAL) Differential, Automated (03/23/2020 6:30 PM EST) Neutrophils % 90.8 % [facility] LABORATORY Neutr Abs (ANC) 21.25(H) 1.70 - 6.10 x10(3)/mc L [facility] Lymphocytes % 2.9 % [facility] LABORATORY Lymphocytes Abs 0.7(L) 0.9 - 3.2 x10(3)/[facility] LABORATORY Monocytes % 5.6 % [facility] LABORATORY Monocyte Abs 1.3(H) 0.3 - 0.9 x10(3)/[facility] LABORATORY Eosinophils % 0.0 % [facility] LABORATORY Eosinophils Abs 0.0 0.0 - 0.4 x10(3)/ L [facility] Basophils % 0.3 % [facility] LABORATORY Basophils Abs 0.1 0.0 - 0.1 x10(3)/ L [facility] LABORAT[facility] Immature Gran [...] Nory Gran Abs 0.10(H) 0.00 - 0.04 x10(3)/mc L [facility] Blood specimen (specimen) 03/23/2020 6:30 PM EST 03/23/2020 6:35 PM EST Narrative Resulting Agency Comment Spec In Lab Raj Kang MD HEMATOLOGY ORDERABLE S [facility] [place] [address] * (ABNORMAL) Hemogram (03/23/2020 6:30 PM EST) WBC 23.4(H) 4.0 - 9.5 x10(3)/[facility] LABORATORY RBC 4.07 4.00 - 5.21 x10(6)/[facility] LABORATORY Hemoglobin 12.2 11.7 - 15.5 gm/dL [facility] Hematocrit 37.9 35.7 - 45.8 % [facility] MCV 93.1 82.6 - 94.4 [facility] LABORATORY MCH 30.0 27.1 - 32.0 pg [facility] MCHC 32.2 31.7 - 35.0 gm/dL [facility] Platelets 275 145 - 357 x10(3)/[facility] LABORATORY RDWSD 43.7 37.0 - 46.0 [facility] LABORATORY RDWCV 12.7 11.5 - 14.1 % [facility] LAB[facility] MPV 9.8 7.6 - 12.9 [facility] LABORATORY nRBC % Auto 0.0 % [facility] LABORATORY nRBC Abs Auto 0.000 0.000 - 0.000 x10(3)/[facility] LABORATORY Blood specimen (specimen) 03/23/2020 6:30 PM EST 03/23/2020 6:35 PM EST Narrative Resulting Agency Comment Spec In Lab Raj Kang MD HEMATOLOGY ORDERABLE S [facility] [place] [address] * (ABNORMAL) Phosphorus (03/23/2020 6:30 PM EST) Phosphorus 5.1(H) 2.5 - 4.5 mg/dL [facility] Blood specimen (specimen) 03/23/2020 6:30 PM EST 03/23/2020 6:35 PM EST Narrative Resulting Agency Comment Spec In Lab Davian Carolina MD CHEMISTRY ORDERABL ES Performing Organization Address City/[facility]/ZIP Co de Phone Number [facility] [place] [address] * Magnesium (03/23/2020 6:30 PM EST) Pathologist [facility] Magnesium 0.69 0.69 - 1.07 mmol/L [facility] Blood specimen (specimen) 03/23/2020 6:30 PM EST 03/23/2020 6:35 PM EST Narrative Resulting Agency Comment Spec In Lab Davian Carolina MD CHEMISTRY ORDERABL ES Performing Organization Address [facility]/ZIP Co de Phone Number [facility] [place] [address] * (ABNORMAL) Comprehensive metabolic panel (non-fasting) (03/23/2020 6:30 PM EST) Pathologist [facility] Glucose Lvl 217(H) 65 - 199 mg/dL [...] CHEMISTRY ORDERABL ES [facility] [place] [address] * Anaerobic Culture (03/23/2020 1:46 PM EST) Anaerobic Culture No anaerobic organisms isolated [facility] Bile specimen (specimen) 03/23/2020 1:46 PM EST 03/23/2020 2:08 PM EST Comment:BILE CULTURE Narrative Resulting Agency Comment Spec In Lab Davian Carolina MD MICROBIOLOGY - GEN ERAL ORDERABLES Performing Organization Address [facility] Co de Phone Number [facility] [place] [address] * Body Fluid Culture, Aerobic (03/23/2020 1:46 [...] - GEN ERAL ORDERABLES Performing Organization Address [facility] Co de Phone Number [facility] [place] [address] * Specimen to Pathology (03/23/2020 12:44 PM EST) AP Specimen 03/23/2020 12:4 4 PM EST 03/23/2020 12:44 PM EST Narrative [facility] - 03/23/2020 12:44 PM EST Specimen requisition ordered. ??Separate Pathology report to follow Davian Carolina MD PATHOLOGY/CYTOLOGY ORDERABLES Performing Organization Address [facility] Co de Phone Number [facility] [place] [address] * Specimen to Pathology (03/23/2020 12:39 PM EST) AP Specimen 03/23/2020 12:3 9 PM EST 03/23/2020 12:39 PM EST Narrative [facility] - 03/23/2020 12:39 PM EST Specimen requisition ordered. ??Separate Pathology report to follow Davian Carolina MD PATHOLOGY/CYTOLOGY ORDERABLES Performing Organization Address City/[facility]/ZIP Co de Phone Number [facility] [place] [address] * Specimen to Pathology (03/23/2020 9:54 AM EST) AP Specimen 03/23/2020 9:54 AM EST 03/23/2020 9:54 AM EST Narrative [facility] - 03/23/2020 9:54 AM EST Specimen requisition ordered. ??Separate Pathology report to follow Davian Carolina MD PATHOLOGY/CYTOLOGY ORDERABLES Performing Organization Address [facility] Co de Phone Number [facility] [place] [address] * Surgical Pathology Report (03/23/2020 9:25 AM EST) Pathologist [facility] Surgical Pathology Report [id number] ? Location: 2WST; 0207; A The signing [...] Burton MD Verified: ??03/30/2020 ?Pathologist Performed at: ??-[facility] Dept. of Pathology, [place], [place] ADDITIONAL STUDIES Whole slide scan: B6,B10 [...] 7 cm ??Lesser Curvature: 5 cm ??Serosa: Coleridge-aguilar and glistening ??Mucosa: Aguilar-brown and granular with no lesions DUODENUM ??Length/Diameter: 20 x 2.0 cm ??Serosa: Coleridge-aguilar and glistening ??Mucosa: Aguilar to aguilar-brown and normally folded ??Ampulla of Vater: Pronounced and patent ??Minor papilla: Patent and uninvolved OTHER Lymph nodes: Multiple lymph nodes are identified. Ink Designation: The posterior retroperitoneal margin is inked red. The anterior serosal surface is inked green. Sections/Processin g: The following tissue is submitted for frozen section: Bisected en face pancreatic neck margin. [employer] Lead sections in 23 cassettes as follows: ?B1-B2: [...] hepatic margin is inked black Sections/Processin g: [employer] Lead sections in 1 cassettes as follows: ?D1: ??cystic duct margin and bilingual sales representative mucosa. ??laura ?Frozen Section FROZEN SECTION DIAGNOSIS _BFS1,2 Pancreatic neck margin: ?Negative for tumor 03/23/20 13:12 Electronically signed by: ??Hiro Burton MD Verified: ??03/23/2020 ?Pathologist Performed at: ??-[facility] Dept. of Pathology, [place], [place] This intraoperative consultation should be interpreted as a preliminary diagnosis pending review of the entire specimen and special studies, if any. [facility] 03/23/2020 9:25 AM EST Davian Carolina MD PATHOLOGY/CYTOLOGY ORDERABLES Performing Organization Address [facility]/ZIP Co de Phone Number [facility] [place] [address] * Specimen to Pathology (03/23/2020 9:25 AM EST) AP Specimen 03/23/2020 9:25 AM EST 03/23/2020 9:25 AM EST Narrative [facility] - 03/23/2020 9:25 AM EST Specimen requisition ordered. ??Separate Pathology report to follow Davian Carolina MD PATHOLOGY/CYTOLOGY ORDERABLES Performing Organization Address City/[facility]/ZIP Co [place] [address] * ABORH Recheck Status (03/23/2020 7:24 AM EST) ABORH Type Recheck Completed [facility] Blood specimen (specimen) 03/23/2020 7:24 AM EST 03/23/2020 7:26 AM EST Narrative Resulting Agency Comment Spec In Lab Davian Carolina MD BLOOD BANK LAB ORD ERABLES Performing Organization Address [facility] de Phone Number [facility] [place] [address] * Antibody screen (03/23/2020 7:24 AM EST) Ab Screen Interp Negative [facility] Expires at [id number] on: 03/26/2020 [facility] Blood specimen (specimen) 03/23/2020 7:24 AM EST 03/23/2020 7:26 AM EST Narrative Resulting Agency Comment Spec In Lab Davian Carolina MD BLOOD BANK LAB ORD ERABLES Performing Organization Address [facility] Co de Phone Number [facility] [place] [address] * ABO/Rh Typing (03/23/2020 7:24 AM EST) ABORH Type A Pos [facility] LABORATORY Blood specimen (specimen) 03/23/2020 7:24 AM EST 03/23/2020 7:26 AM EST Narrative Resulting Agency Comment Spec In Lab Davian Carolina MD BLOOD BANK LAB ORD ERABLES Performing Organization Address [facility] Phone Number [facility] [place] [address] documented in this encounter Visit Diagnoses Not on filedocumented in this encounter Administered Medications Inactive Administered Medications - up to 3 most recent administrations Medication Order MAR Action Action Date Dose Rate Site Adult TPN Central, Intravenous, at 74 mL/hr, CYCLIC, Starting on 04/11/20 at 1800, Until 04/11/20 at 1820, Administer over 18 Hours carvediloL (Coreg) tablet 3.125 mg 3.125 mg, Oral, 2 TIMES DAILY WITH MEALS, First dose on Pamella 04/09/20 at 1700, Until Discontinued, Routine Given 04/11/2020 8:12 AM EST 3.125 mg Given 04/10/2020 5:42 PM EST 3.125 mg Given 04/10/2020 9:11 AM EST 3.125 mg dextrose 10% infusion 250 mL, at 1,000 [...] for the duration of the active insulin. enoxaparin (Lovenox) (40 mg/0.4 mL) subcutaneous injection 40 mg 40 mg, Subcutaneous, NIGHTLY, First dose on Mon03/24/20 at 2100, Until Discontinued, Routine Given 04/10/2020 8:44 PM EST 40 mg Given 04/09/2020 8:20 PM EST 40 mg Given 04/08/2020 8:50 PM EST 40 mg glucagon (human recombinant) injection SolR 1 [...] Buccal, EVERY 30 MIN PRN, Starting on 03/24/20 [...] tube = 37.5 grams., Routine HYDROmorphone (Dilaudid) tablet 2 mg 2 mg, [...] Given 04/10/2020 8:57 PM EST 1 Units ipratropium-albuteroL (DUONEB) 0.5 mg-3 mg(2.5 mg base)/3 mL nebulizer solution 3 mL 3 mL, Nebulization, 4 TIMES DAILY PRN, Starting on Mon03/23/20 at 1800, Until 04/11/20 at 1820, Wheezing, Routine Given 04/09/2020 11:50 AM EST 3 mLs Given 04/08/2020 9:48 AM EST 3 mLs Given 04/07/2020 5:04 AM EST 3 mLs lidocaine (LIDODERM) 5 % patch 2 patch [...] Discontinued, Remove lidocaine 5 %(700 mg/patch) patch iwzzyh-ftoblrma-dizpxwz (Creon 24) 24,000-76,000 -120,000 unit per capsule 2 capsule 2 capsule, Oral, 3 TIMES DAILY WITH MEALS, First dose on Pamella 04/09/20 at 1800, Until Discontinued, Routine Given 04/11/2020 12:05 PM EST 1 capsule Given 04/11/2020 8:12 AM EST 2 capsules Given 04/10/2020 5:39 PM EST 2 capsules metoclopramide (Reglan) tablet 10 mg 10 mg, Oral, 4 TIMES DAILY BEFORE MEALS & NIGHTLY, First dose on Mon04/10/20 at 0900, Until Discontinued, Routine Given 04/11/2020 12:05 PM EST 10 mg Given 04/11/2020 8:12 AM EST 10 mg Given 04/10/2020 8:44 PM EST 10 mg ondansetron (pf) (Zofran) (2 mg/mL) injection 4-8 [...] Given 04/01/2020 12:54 PM EST 4 mg pantoprazole EC (Protonix) tablet 40 mg [...] Routine sodium chloride 0.9 % (flush) flush 5 mL 5 mL, Intravenous, 2 TIMES DAILY, First dose on Mon03/24/20 at 0900, Until Discontinued, Recovery (Recovery-Hospital Unit), Routine Given 04/11/2020 8:15 AM EST 5 mLs Given 04/10/2020 8:44 PM EST 5 mLs Given 04/10/2020 9:11 AM EST 5 mLs TPN Adult Central, Intravenous, at 55 mL/hr, [...] on Mon04/09/20 at 1700, Until Discontinued, Routine 1716 (Given - Provider: Wendy Ruiz RN) 0911 (Given - Provider: Wendy Ruiz, LOS)1742 (Given - Provider: Wendy Ruiz RN) 0812 (Given - Provider: Alanna Kpalan RN) cefTRIAXone (Rocephin) 1 g vial attach [...] of > 240 in 2 hours., Routine 0057 (Given - Provider: Mervin Grimes RN)0400 (Not Given - Provider: Mervin Grimes RN - Reason: Order parameters not met)0856 (Given - Provider: Wendy Ruiz RN)1329 (Given - Provider: Wendy Ruiz, LOS)1716 (Given - Provider: Wendy Ruiz RN)2020 (Given - Provider: Amado Carolina RN) 0059 (Given - Provider: Amado Carolina RN)0400 (Not Given - Provider: Amado Carolina RN - Reason: Order parameters not met)0908 (Given - Provider: Wendy Ruiz RN)1325 (Given - Provider: Wedny Ruiz RN)1738 (Given - Provider: Wendy Ruiz RN)2057 (Given - Provider: Jim Lim, LOS) 0000 (Not Given - Provider: Jim Lim, LOS - Reason: Order parameters not met)0356 (Given - Provider: Jim Lim, LOS)0815 (Given - Provider: Alanna Kaplan, LOS)1200 (Not Given - Provider: Alanna Kaplan, LOS - Reason: Order parameters not met)1600 (Due) [...] RN) 2100 (Patch Removed - Provider: Jim Lim RN) cxxkhn-pwsoukud-zvgmyed DR (Creon 24) 24,000-76,000 -120,000 unit per capsule 2 capsule 2 capsule, Oral, 3 TIMES DAILY WITH MEALS, First dose on Mon04/09/20 at 1800, Until Discontinued, Routine 1715 (Given - Provider: Wendy Ruiz RN) 0911 (Given - Provider: Wendy Ruiz RN)1249 (Given - Provider: Wendy Ruiz RN)1739 (Given - Provider: Wendy Ruiz RN) 0812 (Given - Provider: Alanna Kaplan, LOS)1205 (Given - Provider: Alanna Kaplan RN) magnesium [...] on Mon04/10/20 at 0900, Until Discontinued, Routine 0912 (Given - Provider: Wendy Ruiz RN)1249 (Given - Provider: Wendy Ruiz RN)1739 (Given - Provider: Wendy Ruiz RN)204 (Given - Provider: Jim Lim, LOS) 0812 (Given - Provider: Alanna Kaplan, LOS)1205 (Given - Provider: Alanna Kaplan RN) metroNIDAZOLE (Flagyl) 500 mg in sodium chloride [...] Amado Carolina RN)2049 (Stopped - Provider: Amado Carolina RN) 030 (New Bag - Provider: Amado Carolina RN)033 (Stopped - Provider: Amado Carolina RN) pantoprazole (Protonix) injection 40 mg (CANCELED) 40 mg, Intravenous, 2 TIMES DAILY, First dose on Mon04/01/20 at 2100, Until Discontinued 0856 (Given - Provider: Wendy Ruiz RN)2020 (Given - Provider: Amado Carolina RN) 0911 (Given - Provider: Wendy Ruiz RN)204 (Given - Provider: Jim Lim RN) 0813 (Not Given - Provider: Alanna Kaplan, LOS - Reason: Medication Discontinued) pantoprazole EC (Protonix) tablet 40 mg 40 mg, Oral, 2 TIMES DAILY, First dose (after last modification) on 04/11/20 at 0915, Until Discontinued, DO NOT CRUSH OR OPEN 0934 (Given - Provider: Alanna Kaplan, RN) sodium chloride 0.9 % (flush) flush 5 mL 5 mL, Intravenous, 2 TIMES DAILY, First dose on Mon03/24/20 at 0900, Until Discontinued, Recovery (Recovery-Hospital Unit), Routine 0856 (Given - Provider: Wendy Ruiz, LOS)2020 (Given - Provider: Amado Carolina RN) 09 (Given - Provider: Wendy Ruiz, LOS)2043 (Given - Provider: Jim Lim RN) 0815 (Given - Provider: Alanna Kaplan, LOS) [...] (New Bag - Provider: Wendy Ruiz RN) 1730 (Stopped - Provider: Wendy Ruiz, LOS)1759 (New Bag - Provider: Wendy Ruiz RN) 1759 (Due: Stopped - Provider: Wendy Ruiz RN) [...] Nebulization, 4 TIMES DAILY PRN, Starting on 03/23/20 at 1800, Until 04/11/20 at 1820, Wheezing, [...] Mervin Grimes RN)1715 (Given - Provider: Wendy Ruiz RN) lidocaine (XYLOCAINE) 10 mg/mL (1 %) injection [...] NOT exceed 2 mg total dose. 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
--- OUTSIDE RECORDS SUMMARY | 2023-11-02 02:33 | XMS_ITS | Encounter Summary ---
Author Organization [facility] [place] [address] Care Team Providers Care Inspector Wreath Name Role Phone Zeny James APRN Primary Care Provider Reason for Visit * Auth/Cert Specialty Diagnoses / Procedures Referred By Nir t Referred To Contact Diagnoses IPMN Procedures PRO PART REMV PANC, PROX+PART DUOD+ANAST @PANCREATECTOMY, WHIPPLE TYPE WITH PANCREATOJEJUNOSTOMY (WRVU 52.79) MODIFIER ROBOT,DAVINCI XI Referral ID Status Reason Start Date Expiration Date Visits Re quested Visits Authorized [id number] 1 1 Encounter Details Date Type Department Care Team (Late st Contact Info) Description 03/23/2020 7:30 AM EST - 03/23/2020 3:58 PM EST [place] [address] [facility] [place] [address] ROBOTIC PANCREATECTOMY,WHIPPLE, PARTIAL GASTRECTOMY W/ PANCREATOJEJUNOSTOMY (WRVU 18.28) Social History Tobacco Use Types Packs/Day Years [...] Sign Reading Time Taken Comments Blood Pressure 147/71 03/23/2020 6:33 AM EST Pulse 73 03/23/2020 6:33 AM EST Temperature 36.5 ??C (97.7 ??F) 03/23/2020 6:33 AM ES T Respiratory Rate 18 03/23/2020 6:33 AM EST Oxygen Saturation 99% 03/23/2020 6:33 AM EST Inhaled Oxygen Concentration - - Weight 54.9 kg (121 lb) 03/23/2020 6:33 AM EST Height 157.5 cm (5' 2) 03/23/2020 6:33 AM EST Body Mass Index 21.5 03/27/2020 5:51 PM [...] Abel is a 74 year woman from [place], [place]. She presentedto [facility] ED on 2019 with epigastric [...] of pancreatic duct/cyst fluid cytopathology per Acc# [id number] showed neoplastic Cells Present. Abundant macrophages, mixed leukocytes present and a single group of bland-appearing columnar cells. ??Cell block was examined. Note: The fluid CEA level is consistent with neoplastic process. ?? 11/25/2019 surgical oncology consult. Maricruz was seen for surgery consultation. She was by herself. She described the episode that brought her to the ED at [facility] as the first time she [...] to: Home VNA: Yes Name of facility: [facility]. Contact information: PHONE: [phone] Discharge Conditions/Prognosis: Stable Discharge Medications: The following [...] medications with new dosing Dose Details * uvtkpa-qlvtuoxy-clphtut DR 24,000-76,000 -120,000 unit Cpdr Commonly known as: Creon Take 1-2 capsules by mouth 3 times daily (with meals). With Meals: Take 1-2 capsules by mouth. WithSnacks: Take 1 capsule by mouth. What changed: See the new instructions. 1-2 capsule Quantity: 270 capsule Refills: 3 * uagdnb-uubpeeyg-uparphg DR 24,000-76,000 -120,000 unit Cpdr Commonly known [...] [place] 04/21/2020 2:30 PM Davian Carolina MD [facility] SUR[facility] 04/21/2020 2:[address] [facility] Outpatient Services/Studies: CBC (with Diff) Standing Status: [...] AND/OR HOSPICE SERVICES) PATIENT'S LOCATION: Linda Abel [address] [place] [id number] Textile Converter's Name: self In discussion with the attending physician, it is certified that this patient is under their care and that they, or a Nurse Practitioner,Clinical Nurse specialist or Physician Checker In who is working directly with them, had [...] andblood sugar monitoring. HOME HEALTH CARE AGENCY: [facility] PHONE: [phone] FAX: [phone] Start of care: 24-48hrs after discharge FOR [...] obtained from this patient's PCP: Zeny James, NUCLEAR STATION OPERATOR [address] [place] / [facility] [id number] All VNA agencies which cover the area of patient's residence have been reviewed, either verbally kehinde writing, and patient/family have chosen the home health care agency noted Question Response Notes Agency name and contact information [facility] Patient location post discharge Home What services are requested Registered Nurse Start date 04/01/2020 Responsible MD post discharge contact info PCP and Dr. Carolina Referral for Home TPN Order Comments: Adult Home TPN Orders: Home infusion company: Linda Abel [employer] [place] [address] DAVIAN CAROLINA Diagnosis requiring TPN: IPMN Diabetic: [...] and given to the patient. Patient Instructions [facility] Department of General Surgery Discharge Instructions CALL [...] with the Surgery nurses. The number is [phone]. - During the night or weekends call the [facility] bender machine operator at [phone] and ask to speak to the surgery resident enterprise resource planning consultant for general surgery. Please note: Your surgeon may not be Mechanical Press Operator, especially during the night or on weekends, so be ready to describe yourself and your surgery when you call. Follow up appointments: Future Appointments Date Time Provider Department Center 04/21/2020 1:30 PM LAB, THREE L Lab 3L GINA [place] 04/21/2020 2:30 PM Davian Carolina MD [facility] SUR[facility] 04/21/2020 2:[address] [facility] SUR[facility] [x] Follow-up appointment with General Surgery has already been scheduled [] A request for a follow-up appointment has been made and you should receive information via phone/mail in the next week. If you do not hear anything, please call the clinic at [phone] to confirm or reschedule. - A follow-up [...] please call the General Surgery Clinic nurses [phone] for prior authorizations assistance General Instructions Upper [...] the day after the procedure, use an xaxv-nyz-uybubkb spray to numb your throat. Sucking on [...] occurs, please contact your Doctor. Please call [phone] before 8pm Mon-Fri with problems, questions or concerns. If you call after 8pm or on weekends, call the Hospital at [phone] and ask to speak to the Head Esthetician enterprise resource planning consultant and the bender machine operator will contact that person for you. When should you call for help? Call 147 anytime you think you may need emergency [...] any problems. Where can you learn more? [facility] View your After Visit Summary and more online at [email or web address] If you would like to provide feedback about your hospital experience, please call the Office of Patient and Family Relations at . If you have received this After Visit Summary in error, please immediately return it in person to the department, or notify the [facility] Privacy Office by calling toll free at between the hours of 8AM and 5PM to arrange for our retrieval of the documents at no cost to you. Content Version: 12.2 ?? [id number] [employer]. Care instructions adapted under license by [facility]. If you have questions about a medical condition or this instruction, always ask your healthcare professional. [employer] disclaims any warranty or liability for your [...] questions you can call our clinic at [phone] Treatment of Low Blood Sugar (Hypoglycemia) If your BG is lower than 80, you are likely to feel shaky, sweaty and lightheaded. This is a signalthat your body needs more sugar. Quickly eat or drink a small serving of something sweet, such as: 4 ounces fruit juice or regular (not diet) soda 6 [employer] small box of raisins 4 glucose tablets [...] Zeny James APRN Signed: Larry Longo MD [facility] Surgical Oncology Service Team Pager #[phone] 04/11/2020 6:07 PM documented in this encounter [...] the day after the procedure, use an nyhj-tvx-cpytlpq spray to numb your throat. Sucking on [...] occurs, please contact your Doctor. Please call [phone] before 8pm Mon-Fri with problems, questions or concerns. If you call after 8pm or on weekends, call the Hospital at [phone] and ask to speak to the Head Esthetician enterprise resource planning consultant and the bender machine operator will contact that person for [...] any problems. Where can you learn more? [facility] View your After Visit Summary and more online at [email or web address] If you would like to provide feedback about your hospital experience, please call the Office of Patient and Family Relations at . If you have received this After Visit Summary in error, please immediately return it in person to the department, or notify the [facility] Privacy Office by calling toll free at between the hours of 8AM and 5PM to arrange for our retrieval of the documents at no cost to you. Content Version: 12.2 ?? [phone] [employer]. Care instructions adapted under license by [facility]. If you have questions about a medical condition or this instruction, always ask your healthcare professional. [employer] disclaims any warranty or liability for your [...] questions you can call our clinic at [phone] Treatment of Low Blood Sugar (Hypoglycemia) If [...] Longo MD - 03/25/2020 2:04 PM EST [facility] Department of General Surgery Discharge Instructions CALL [...] with the Surgery nurses. The number is [phone]. - During the night or weekends call the [facility] bender machine operator at [phone] and ask to speak to the surgery resident enterprise resource planning consultant for general surgery. Please note: Your surgeon may not be Mechanical Press Operator, especially during the night or on weekends, so be ready to describe yourself and your surgery when you call. Follow up appointments: Future Appointments Date Time Provider Department Center 04/21/2020 1:30 PM LAB, THREE L Lab 3L GINA [place] 04/21/2020 2:30 PM Davian Carolina MD [facility] SUR[facility] 04/21/2020 2:[address] [facility] SUR[facility] [x] Follow-up appointment with General Surgery has already been scheduled [] A request for a follow-up appointment has been made and you should receive information via phone/mail in the next week. If you do not hear anything, please call the clinic at [phone] to confirm or reschedule. - A follow-up [...] please call the General Surgery Clinic nurses [phone] for prior authorizations assistance documented in this [...] Capsule Take 1 g by mouth daily. fkulad-cyluxwbh-smky ase DR (Creon 24) 24,000-76,000 -120,000 unit [...] gauge x 5/16 Syringe 1 each by [facility]Non-Drug; Combo Route) route nightly. 30 Syringe 11 04/11/2020 05/19/2020 lancets 33 gauge Misc 1 each by Misc.(Non-Drug; Combo Route) route 3 times daily (before meals). 100 each 11 04/11/2020 05/19/2020 novoLIN R Solution Add 8 units to TPN bag every night 10 mL 12 04/11/2020 05/19/2020 tgkkft-uioosafl-yezx ase DR (Creon) 24,000-76,000 -120,000 unit Capsule, Delayed Release(E.C.) Take 1-2 capsules by mouth 3 times daily (with meals). With Meals: Take 1-2 capsules by mouth. With Snacks: Take 1 capsule by mouth. 270 capsule 3 03/31/2020 09/07/2020 CALCIUM CARBONATE-VITAMIN D3 ORAL Take 1 tablet by mouth daily. 01/19/2023 fluticasone propionate (FLONASE) 50 mcg/actuation Reva, Suspension 1 spray by Each Nare route [...] sent electronically to pt's home pharmacy.Patient left [facility] in a wheelchair accompanied by 2 [place] staff. * Victoria Calle RN - 04/11/2020 10:13 AM EST MORGAN kathia, Willem and care team (, RD) working on arranging home DC today with TPN and with [place] home restoration service supervisor to assist. Orders updated. [facility] liaison coordinating. Son Roberto Carlos to transport home and assist at DC. Victoria Calle RN Pager [phone] * Lora Berg RD - 04/11/2020 10:00 AM EST [...] to discuss plan with provider Team pager #[phone]. Nutrition Support: TPN Formula for Discharge (Show up to 1 orders; newest on the left.) Start date and time 04/11/2020 1800 Adult TPN [[id number]] Order Status Active Macro Ingredients amino acid 15% no.5 (ClinisoL) 110 g dextrose 70% 118 g Electrolytes sodium phosphate 48 mmol potassium chloride 100 mEq sodium chloride 210 mEq Additives trace elements Zn-Cu-Mn-Se 1 mL ascorbic acid (vitamin C) 100 mg Vit R0-S4-W6-B5-B6 (B Complex) 1 mL zinc sulfate 10 [...] 1800 04/09/2020 1800 04/08/2020 1800 Adult TPN [[id number]] TPN Adult [[id number]] TPN Adult [[id number]] Order Status Active Active Last Admin New Bag at 04/10/2020 1759 by Wendy Ruiz RN New Bag at 04/08/2020 1722 by Inez Lan RN Medications insulin regular human 8 Units 8 Units 8 Units Additives trace elements Zn-Cu-Mn-Se 1 mL 1 mL 1 mL ascorbic acid (vitamin C) 100 mg 100 mg 100 mg Vit N4-E8-S0-B5-B6 (B Complex) 1 mL 1 mL 1 [...] SCD's/venodynes Other Sites: 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 [place] Body Weight: 50-55 kg Usual Body Weight: [...] up while inpatient. LORA BERG RD Pager #:[phone] * Larry Longo MD - 04/11/2020 8:18 AM EST Surgical Oncology Inpatient Progress Note Patient Name: Linda MERAZ; Age: 6 1945; 74 y.o. Room/Bed: [address] [place] [address] Today's Date: 04/11/20 ID: Linda Abel is [...] 9.6 oz) Labs: Recent Labs 04/11/20 0535 04/10/20 0314 04/09/20 0030 WBC 13.2* 13.1* 13.5* HGB 9.7* 9.6* 10.1* HCT 29.4* 28.6* 30.4* PLATELET 371* 429* 426* Recent Labs 04/11/20 0535 04/10/20 0314 04/09/20 0030 NA 130* 131* 133* K 4.3 3.9 3.9 CL 99 100 102 CO2 24 23 BUN 15 16 15 CREATININE 0.34* 0.35* 0.31* GLUCOSE 165 156 157 CALCIUM 7.7* 7.6* 7.7* MAGNESIUM 0.69 0.64* 0.78 PHOS 3.4 3.4 2.7 LFT's No results found for: ALKPHOS, AST, ALBUMIN, BILIDIR, BILITOT, ALT, PROT KHRIS Amylase: 03/24: 12: 22 12: 15 03/27: 327 03/28: [...] Longo MD Surgical Oncology Service Team Pager #[phone] 04/11/20 8:18 AM * Larry Longo MD - 04/10/2020 7:59 AM EST Surgical Oncology Inpatient Progress Note Patient Name: Linda MERAZ; Age: 6 1945; 74 y.o. Room/Bed: [address] [place], [place] [address]A Today's Date: 04/10/20 ID: Linda Abel is [...] for PNA tx POD 04/04: ROEL POD 13 04/05: ROEL POD [...] 28.6* PLATELET 429* 426* 477* Recent Labs 04/10/20 0314 04/09/20 0030 04/08/20 0030 NA 131* 133* 132* K 3.9 3.9 3.5 CL 100 102 101 CO2 24 24 BUN 16 15 15 CREATININE 0.35* 0.31* 0.29* GLUCOSE 156 157 147 CALCIUM 7.6* 7.7* 7.7* MAGNESIUM 0.64* 0.78 0.69 PHOS 3.4 2.7 3.1 LFT's No results found for: ALKPHOS, AST, ALBUMIN, BILIDIR, BILITOT, ALT, PROT KHRIS Amylase: 03/24: 03/25: 22 12: 15 12: 327 03/28: [...] DM mgmt - Rewire PICC today to [facility] for discharge with TPN - Possible advance [...] Longo MD Surgical Oncology Service Team Pager #[phone] 04/10/20 7:59 AM * Duke Tidwell - 04/09/2020 3:32 PM EST Android Programmer Encounter Note Patient Name: Linda Abel : [id number] MR#: [id number] Admit Date: 03/23/2020 5:51 AM Hospital Day 17 days Narrative: Follow-up visit for continued assessment and support. Pt was sleeping and I will visit an other time. Assessment: Intervention and Outcome: Follow-up: Time in Direct Care: Duke Tidwell 04/09/2020 * Alesha Casillas RN - 04/09/2020 12:54 PM EST OFFICE OF CARE MANAGEMENT Natural Gas Plant Technician Follow-up Note Alesha Casillas RN reviewed record and discussed patient with Care Team. Patient plan of care discussed in multidisciplinary rounds and assessment for continuing care and discharge needs. Diagnosis: IPMN (intraductal papillary mucinous neoplasm) LOS Hospital: 17 days INSURANCE: Payor: MEDICARE / Plan: MEDICARE PART A & B / Product Type: *No Product type* / SECONDARY INSURANCE: [facility] [place] DECISION MAKER: Attempt Cardiopulmonary Resuscitation - Inpatient <no information> Patient continues to require hospitalization. Per team, patient requires inpatient status r/t increasing diet, TPN and c-diff pending results. Discharge date planned for 04/11 if medically ready. SonRob will be here around 1pm and will need a teach with patient. Aury from [facility] will see patient this afternoon and arrange another teach on Monday with patient and son around 1-2pm. [facility] will confirm [place] will see patient Monday afternoon to complete third teach. Patient understands and has agreed to learn to self administer her TPN. Referred Roberto Carlos from Social works to see patient as wellfor support. Aury from [facility] will call son and set up today. Friend Inez, Nurse [phone], [phone] next to patient will be there to check in as well as a resource for patient but is not able to be available all the time. Son Roberto Carlos has committed to staying with patient x2 weeks and then friend Luba will stay with patient. Asked team to put order in to request to single lumen before discharge. Current Referral in place: [facility] for RN, PT to eval for needs in home, OT Transportation: Son Roberto Carlos will drive patient home via private vehicle when medically ready. Support: Son, friends Natural Gas Plant Technician to follow with team and family to [...] Body Fluid Culture, Aerobic & Anaerobic Bile [[id number]] Collected: 03/23/20 1346 Lab Status: Final result Specimen: Bile Updated: 03/27/20 1333 Body Fluid Culture, Aerobic [[id number]] Collected: 03/23/20 1346 Lab Status: Final result Specimen: Bile Updated: 03/27/20 1333 Body Fluid Culture No growth Gram Stain -- Cytocentrifuge Gram Stain performed Neutrophils seen No microorganisms seen. Anaerobic Culture [[id number]] Collected: 03/23/20 1346 Lab Status: Final result Specimen: Bile Updated: 03/27/20 1117 Anaerobic Culture No anaerobic organisms isolated COVID-19 PCR [[id number]] Collected: 03/20/20 1057 Lab Status: Final result [...] diagnosis of COVID-19 is performed using the Stellarisnity m SARS-CoV-2 Assay as authorized by the FDA Emergency Use Authorization (EUA). This EUA assay is intended for In-vitro Diagnostic (IVD) use with respiratory specimens such as nasopharyngeal swabs collected from individuals during the acute phase of infection. This assay is performed based on the instructions for use provided by [employer] and additional guidance provided by CDC and FDA. Testing is performed in the Clinical Genomics and Advanced Technology Laboratory within the Department of Pathology and Laboratory Medicine at [facility], certified under the Clinical Laboratory Improvement [...] fact sheets at the following FDA website: https://www.fda.gov/medical-devices/rqpcibjzsqs-hcyfwxs-4902-avsku-97-lzolqmznv- cas-zqrqjdnisrzoaz-sqohzkp-devices/zhrac-rxfuureflzu-bedl SARS-Cov-2 RNA Source IUSS ACOUSTIC ANALYST Swab Diagnostic Studies: None new Inpatient Medications: [...] clinical changes occur or newquestions arise, page 2351. Case discussed with Dr. Blas Attending staff [...] 1800 04/08/2020 1800 04/07/2020 1800 TPN Adult [[id number]] TPN Adult [[id number]] TPN Adult [[id number]] Order Status Active Active Last Admin New Bag at 04/08/2020 1722 by Inez Lan RN New Bag at 04/07/2020 1901 by Sanjuanita Mercado, RN Medications insulin regular human 8 Units 8 Units 8 Units Additives trace elements Zn-Cu-Mn-Se 1 mL 1 mL 1 mL ascorbic acid (vitamin C) 100 mg 100 mg 100 mg Vit D0-X4-J7-B5-B6 (B Complex) 1 mL 1 mL 1 [...] encounter: 53.3 kg (117 lb 9.6 oz). [place] Body Weight: 50 kg Usual Body Weight: [...] loss. Protein-calorie Malnutrition: Not identified (Chencho molina alCHRIS J Parenteral Enteral Nutr. 2012 August; 36(3): 273-83) Nutrition to continue to follow up while inpatient. JOSUE LORA RD Pager #[phone] * Katie Santamaria APRN - 04/09/2020 10:37 [...] for 118 G dextrose) Katie Santamaria APRN [facility] Endocrinology Diabetes Management Pager [phone] * Larry Longo MD - 04/09/2020 9:21 AM EST Surgical Oncology Inpatient Progress Note Patient Name: Linda MERAZ; Age: 6 1945; 74 y.o. Room/Bed: [facility]207-A Today's Date: 04/09/20 ID: Linda Abel is [...] obtained with mild elevation, trended POD 1 12/8: Convalesced on 2W. OOB to chair and [...] (117 lb 9.6 oz) Labs: Recent Labs 04/09/202904/08/202904/07/20 0350 WBC 13.5* 16.1* 13.5* HGB 10.1* 9.8* 9.6* HCT 30.4* 28.6* 28.1* PLATELET 426* 477* 453* Recent Labs 04/09/202904/08/20 0030 04/07/20 0350 NA 133* 132* 134* [...] Longo MD Surgical Oncology Service Team Pager #[phone] 04/09/20 9:21 AM * Josue Lora RD [...] 1800 04/07/2020 1800 04/06/2020 1800 TPN Adult [[id number]] TPN Adult [[id number]] TPN Adult [[id number]] Order Status Active Active Last Admin New Bag at 04/07/2020 1901 by Sanjuanita Mercado RN New Bag at 04/06/2020 1824 by Maria Esther Blancas RN Medications insulin regular human 8 Units 8 Units 8 Units Additives trace elements Zn-Cu-Mn-Se 1 mL 1 mL 1 mL ascorbic acid (vitamin C) 100 mg 100 mg 100 mg Vit M4-U7-K3-B5-B6 (B Complex) 1 mL 1 mL 1 [...] encounter: 53.3 kg (117 lb 9.6 oz). [place] Body Weight: 50 kg Usual Body Weight: [...] up while inpatient. JOSUE LORA RD Pager #[phone] * Davian Carolina MD - 04/08/2020 8:18 AM EST Surgical Oncology Inpatient Progress Note Patient Name: Linda MERAZ; Age: 6 1945; 74 y.o. Room/Bed: [address] [place] [address]- Today's Date: 04/08/20 ID: Linda Abel is [...] POD 0 03/23: To OR for robotic WhROEL martinez post-op. [...] 04/04: ROEL POD 13 04/05: ROEL POD 04/06: NGT removed, tolerating [...] PROT KHRIS Amylase: 03/24: 26 03/25: 22 1210: 15 1211: 327 03/28: 12 [...] Mccormack MD Surgical Oncology Service Team Pager #[phone] 04/08/20 8:18 AM Surgery Attending Addendum I [...] she does not meet criteria for a halfway facility. Jennifer Carolina MD 04/08/2020 10:36 AM [...] petechiae, or ecchymoses Neuro:A&OX3 Labs: Recent Labs 04/08/200 04/07/200 04/06/20 0130 WBC 16.1* 13.5* 16.7* HGB [...] in the last 168 hours. Recent Labs 04/08/200 04/07/20 0350 04/06/20 0130 CALCIUM 7.7* 7.7* [...] Body Fluid Culture, Aerobic & Anaerobic Bile [[id number]] Collected: 03/23/20 1346 Lab Status: Final result Specimen: Bile Updated: 03/27/20 1333 Body Fluid Culture, Aerobic [[id number]] Collected: 03/23/20 134 Lab Status: Final result Specimen: Bile Updated: 03/27/20 1333 Body Fluid Culture No growth Gram Stain -- Cytocentrifuge Gram Stain performed Neutrophils seen No microorganisms seen. Anaerobic Culture [[id number]] Collected: 03/23/20 1346 Lab Status: Final result Specimen: Bile Updated: 03/27/20 1117 Anaerobic Culture No anaerobic organisms isolated COVID-19 PCR [[id number]] Collected: 03/20/20 1057 Lab Status: Final result [...] diagnosis of COVID-19 is performed using the Stellarisnity m SARS-CoV-2 Assay as authorized by the FDA Emergency Use Authorization (EUA). This EUA assay is intended for In-vitro Diagnostic (IVD) use with respiratory specimens such as nasopharyngeal swabs collected from individuals during the acute phase of infection. This assay is performed based on the instructions for use provided by [employer] and additional guidance provided by CDC and FDA. Testing is performed in the Clinical Genomics and Advanced Technology Laboratory within the Department of Pathology and Laboratory Medicine at [facility], certified under the Clinical Laboratory Improvement [...] fact sheets at the following FDA website: https://www.fda.gov/medical-devices/bfbpvwhwmck-tpvsihy-7048-sejft-14-nkjjecaif- bvm-wytdthbggdddup-penmeuw-devices/teazr-heanwegehyo-yawj SARS-Cov-2 RNA Source IUSS ACOUSTIC ANALYST Swab Diagnostic Studies: None new Inpatient Medications: [...] 3:07 PM EST OFFICE OF CARE MANAGEMENT Natural Gas Plant Technician Follow-up Note Alesha Casillas RN reviewed record and discussed patient with Care Team. Patient plan of care discussed in multidisciplinary rounds and assessment for continuing care and discharge needs. Diagnosis: IPMN (intraductal papillary mucinous neoplasm) LOS Hospital: 15 days INSURANCE: Payor: MEDICARE / Plan: MEDICARE PART A & B / Product Type: *No Product type* / SECONDARY INSURANCE: [employer] [facility] [place] DECISION MAKER: Attempt Cardiopulmonary Resuscitation [...] Current Referral in place: Demetrio Cervantes, STEPHANIE, [place], [facility] Transportation: Son will drive patient home via private vehicle when medically ready. Support: Son Natural Gas Plant Technician to follow with team and family to [...] 1800 04/06/2020 1800 04/03/2020 1800 TPN Adult [[id number]] TPN Adult [[id number]] TPN Adult [[id number]] Order Status Active Active Last Admin New Bag at 04/06/2020 1824 by Maria Esther Blancas RN New Bag at 04/05/2020 1820 by Mervin Grimes, RN Medications insulin regular human 8 Units 8 Units 6 Units Additives trace elements Zn-Cu-Mn-Se 1 mL 1 mL 1 mL ascorbic acid (vitamin C) 100 mg 100 mg -- Vit K0-J4-B9-B5-B6 (B Complex) 1 mL 1 mL 1 [...] encounter: 53.3 kg (117 lb 9.6 oz). [place] Body Weight: 50 kg Usual Body Weight: [...] up while inpatient. JOSUE LORA RD Pager #[phone] * Diego Blas MD - 04/07/2020 11:17 [...] complicated by abdominal pain requiring a dilaudid JOURNEYMAN WIREMAN that was weaned off on 03/28. She [...] asneeded. ??? fluticasone propionate (FLONASE) 50 mcg/actuation Reva, Suspension 1 spray by Each Nare route [...] N/A 12/05/2019 Mammo Stereotactic Biopsy Left 12/05/2019 [facility] RAD MAMMOGRAPHY ??? MASTECTOMY Right with RT ??? PRO BX/REMV, LYMPH NODE, DEEP AXILL Left 12/20/2019 BIOPSY OR EXCISION OF LYMPH NODE(S), OPEN, DEEP AXILLARY NODE(S) (WRVU 6.43) performed by Susan Rivera MD at [facility] OSC ??? PRO COLONOSCOPY, DIAGNOSTIC 01/07/2014 COLONOSCOPY, DIAGNOSTIC performed by Izzy Johnson MD at [facility] ENDOSCOPY ??? PRO ENDOSCOPIC US EXAM, ESOPH N/A 11/15/2019 UPPER EUS- ENDOSCOPIC ULTRASOUND performed by Ralf Urrutia MD at [facility] ENDOSCOPY ??? PRO INTRAOP SENTINEL LYMPH ID W/DYE INJECTION Left 12/20/2019 INTRAOPERATIVE ID (MAPPING) SENTINEL LYMPH NODE,INCLUDES INJECTION (WRVU 2.5) performed by Susan Rivera MD at [facility] OSC ??? PRO MASTECTOMY, SIMPLE, COMPLETE Left 12/20/2019 MASTECTOMY, SIMPLE, COMPLETE (WRVU 15.85) performed by Susan Rivera MD at [facility] OSC ??? PRO OMENTAL FLAP, INTRA-ABDOMINAL 03/23/2020 @OMENTAL FLAP, INTRA-ABDOMINAL (WRVU 6.54) performed by Davian Carolina MD at [facility] MAIN OR ??? PRO UNLISTED PX PNCRS N/A 03/23/2020 ROBOTIC PANCREATECTOMY,WHIPPLE, PARTIAL GASTRECTOMY W/ PANCREATOJEJUNOSTOMY performed by Davian Carolina MD at [facility] MAIN OR ??? PRO UPPER GI ENDOSCOPY, DIAGNOSTIC N/A 04/02/2020 EGD, UPPER GI ENDOSCOPY performed by Ralf Urrutia MD at [facility] ENDOSCOPY Family History: Siblings: Sister with [...] MD Internal Medicine, PGY3 BETHANY Pager # [phone] Attending Staff New Consult Documentation We have [...] Resuming HCTZ may be ok in the retirement too (patient wants to do so), but would hold off on the thiazide for right now due to mild hyponatremia. DIEGO BLAS MD 04/08/2020 * Alesha Casillas RN - 04/07/2020 10:12 AM EST Based on discussions with the multi-disciplinary healthcare team, the patient would benefit from halfway level of care at discharge. ?? I have met with the patient to discuss discharge planning needs. I have provided the [facility], Office of Care Management letter from the [employer] pertaining to rehab referrals. I have also provided a letter describing our affiliations within the [facility] and educatedthem about their right to choose where referrals are. ?? Provided patient with [facility] Star Quality Rating for SNF, LTAC and/or [...] The patient have requested referrals to: 1. [facility] ([facility]) ([facility]) [address] [place] [address] ?? PHONE: [phone] FAX: [phone] 2. [facility] ([facility]) ([facility]) [address] [place] [address] ?? PHONE: [phone] FAX: [phone] 3. [facility] ([facility]) ([facility]) [address] [place] [address] ?? PHONE: [phone] FAX: [phone] ?? Expected date of discharge: 04/10 Note routed to [employer] who will communicate referrals to facilities and provide any required information. * Edwardo Mccormack MD - 04/07/2020 7:42 AM EST Surgical Oncology Inpatient Progress Note Patient Name: Linda MERAZ; Age: 6 1945; 74 y.o. Room/Bed: [address] [place], [place] [address] Today's Date: 04/07/20 ID: Linda Abel is [...] Amylase: 8: 26 129: 22 12/10: 15 1211: 327 1212: 12 Micro: Bile [...] Mccormack MD Surgical Oncology Service Team Pager #[phone] 04/07/20 7:42 AM * Davian Carolina MD - 04/06/2020 1:18 PM EST Surgical Oncology Inpatient Progress Note Patient Name: Linda MERAZ; Age: 6 1945; 74 y.o. Room/Bed: 207/207-A Today's Date: 04/06/20 ID: Linda Abel is [...] sips and chips Hospital Course: POD 0 12/: To OR for robotic WhROEL martinez post-op. Note intra-operative concern for common hepaticartery discoloration (? Pseydoaneurysm); post-op LFTS obtained with mild elevation, trended POD 1 12: Convalesced on 2W. OOB to chair and walked x 1. Some paranoia/disorientation. PICC placed. POD 2 03/25: Disoriented overnight but redirectable, improved during day. Transferred to private room. POD 3 12/10: CTA for bump in LFTs in light [...] Amylase: 8: 26 129: 22 1210: 15 03/27: 327 [...] Mccormack MD Surgical Oncology Service Team Pager #[phone] 04/06/20 1:18 PM Surgery attending addendum I [...] and I would not exactly call the [id number]. I called and spoke to her son Roberto Carlos who is down in [place] and I agree that at this point the best option for Maricruz given that she will need to be on TPN will be for her to go to a swing bed type facility either at [facility] or at [facility]. We had previously hoped that she would be able to go homeand no clear was working on VNA with [facility] for the TPN but basically given the remote location where she lives up in [place], [place] and the lack of support she essentially will not beable to go home with TPN and I think we need to start really considering the swing bed options as mentioned above at [facility] or at [facility]. This assumes all goes well with her NG tube out. We alsomay need to reengage medicine to help with her hypertension as this is been quite a refractory issue during this hospitalization and we need their help. Jennifer Carolina MD 04/06/2020 5:29 PM This note was created using [employer]) voice recognition software. * Josue Lora RD [...] 1800 04/03/2020 1800 03/27/2020 1800 TPN Adult [[id number]] TPN Adult [[id number]] TPN Adult [[id number]] Order Status Active Active Discontinued Last Admin New Bag at 04/05/2020 1820 by Mervin Grimes, RN New Bag at 03/29/2020 1949 by Ness Cummings, RN Medications insulin regular human 8 Units 6 Units -- Additives trace elements Zn-Cu-Mn-Se 1 mL 1 mL 1 mL ascorbic acid (vitamin C) 100 mg -- -- Vit W2-T0-O0-B5-B6 (B Complex) 1 mL 1 mL 1 [...] encounter: 53.3 kg (117 lb 9.6 oz). [place] Body Weight: 50 kg Usual Body Weight: [...] up while inpatient. JOSUE LORA RD Pager #[phone] * Alesha Casillas RN - 04/06/2020 10:24 AM EST OFFICE OF CARE MANAGEMENT Natural Gas Plant Technician Follow-up Note Alesha Casillas RN reviewed record and discussed patient with Care Team. Patient plan of care discussed in multidisciplinary rounds and assessment for continuing care and discharge needs. Diagnosis: IPMN (intraductal papillary mucinous neoplasm) LOS Hospital: 14 days INSURANCE: Payor: MEDICARE / Plan: MEDICARE PART A & B / Product Type: *No Product type* / SECONDARY INSURANCE: [facility] DECISION MAKER: Attempt Cardiopulmonary Resuscitation - Inpatient <no information> Patient continues to require hospitalization. Per team, patient requires inpatient status r/t dc N/G tube today. On sips and chips. Discharge date planned for 04/08 if medically ready. Current Referral in place: [facility] for RN. Added PT, OT. [facility] routed for TPN supportif needed. Transportation: Son will drive patient home via private vehicle when medically ready. Support: Son Natural Gas Plant Technician to follow with team and family to [...] Total Evaluation Minutes, Occupational Therapy: 45 Pager: [phone] PEPITO Kirk Plan updated by OT to [...] 1:15 I:C ratio ?? Katie Santamaria APRN [facility] Endocrinology Diabetes Management Pager [phone] * Davian Carolina MD - 04/06/2020 7:09 [...] Carolina MD 04/06/2020 7:23 AM * Swathi Dyer, LOS - 04/06/2020 1:42 AM EST OUTCOME EVALUATION [...] DOB; Age: 6 1945; 74 y.o. Room/Bed: 207/207-A [...] Murillo MD Surgical Oncology Service Team Pager #[phone] 04/05/20 3:52 PM * Davian Carolina MD - 04/04/2020 10:14 AM EST Surgical Oncology Inpatient Progress Note Patient Name: Linda MERAZ; Age: 6 1945; 74 y.o. Room/Bed: [address] [place], [place] [address] Today's Date: 04/04/20 ID: Linda Abel is [...] Murillo MD Surgical Oncology Service Team Pager #[phone] 04/04/20 10:14 AM Surgery Attending Addendum I [...] her son-Roberto Carlos who is down in [place] to chat about the plan going forward. [...] MD 04/04/2020 This note was created using [employer] voice recognition software. Jennifer Carolina MD * [...] time 04/03/2020 1800 03/27/2020 1800 TPN Adult [[id number]] TPN Adult [[id number]] Order Status Active Discontinued Last Admin New Bag at 03/29/2020 1949 by Ness Cummings, RN Medications insulin regular human 6 Units -- Additives trace elements Zn-Cu-Mn-Se 1 mL 1 mL Vit D1-Q0-T1-B5-B6 (B Complex) 1 mL 1 mL zinc [...] encounter: 53.3 kg (117 lb 9.6 oz). [place] Body Weight: 50 kg Usual Body Weight: [...] up while inpatient. JOSUE LORA RD Pager #[phone] * Alesha Casillas RN - 04/03/2020 12:26 PM EST This patient requires infusion therapy for TPN. A letter describing our affiliations was reviewed with them and they were educated about their right to choose where referrals are placed. Request referral to [place], [place] for TPN or . Expected date of discharge: 04/07/2020. Patient will require teaching. Referral routed to the [employer] for matching with agency/vendor and to provide any required information. * Olayinka Ojeda OTA - 04/03/2020 11:02 AM EST Occupational Therapy Treatment Note Treatment Number OT: 4 Patient Dx: Linda Abel is a 74 y.o. female admitted on 03/23/2020 with [facility] main duct IPMN,??now Post-Op??s/p robotic whipple on 12/7. ?? Precautions/Special Considerations: Fall risk, PICC, NG [...] Total Evaluation Minutes, Occupational Therapy: 15 Pager: [phone] PEPITO Kirk Occupational Therapy Rehabilitation Department * [...] - 1:20 I:C ratio Katie Santamaria APRN [facility] Endocrinology Diabetes Management Pager [phone] 20 minutes of this 35 minute visit [...] MERAZ; Age: 6 1945; 74 y.o. Room/Bed: [address] [place] [address] Today's Date: 04/03/20 ID: Linda Abel is [...] PNA, endorsing cough Hospital Course: POD 0 03/23: To OR [...] PROT KHRIS Amylase: 03/24: 26 129: 22 12/10: 15 12/11: 327 [...] Murillo MD Surgical Oncology Service Team Pager #[phone] 04/03/20 7:49 AM * Patricia Jordan, PT [...] at a later time. Olayinka BEYER Pager: [phone] * Josue Lora RD - 04/02/2020 12:44 [...] date and time 03/27/2020 1800 TPN Adult [[id number]] Order Status Discontinued Last Admin New Bag at 03/29/2020 1949 by Ness Cummings, RN Additives trace elements Zn-Cu-Mn-Se 1 mL Vit X7-M6-N7-B5-B6 (B Complex) 1 mL zinc sulfate 10 [...] encounter: 53.3 kg (117 lb 9.6 oz). [place] Body Weight: 50 kg Usual Body Weight: [...] up while inpatient. JOSUE LORA RD Pager #[phone] * Davian Carolina MD - 04/02/2020 8:15 AM EST Surgical Oncology Inpatient Progress Note Patient Name: Linda MERAZ; Age: 6 1945; 74 y.o. Room/Bed: [address] [place] [address] Today's Date: 04/02/20 ID: Linda Abel is [...] Small Left effusion. Awaiting ROBF. POD 4 12/11: clamp trial with 200cc out, NGT remained in overnight, +flatus. POD 5 /: NGT and KHRIS drain removed. Tolerated clears. [...] BILITOT, ALT, PROT KHRIS Amylase: 03/24: 26 9: 22 03/26: 15 03/27: 327 03/28: 12 [...] Mccormack MD Surgical Oncology Service Team Pager #[phone] 04/02/20 10:58 AM Surgery Attending Addendum I [...] minimal contrast passing downthe efferent limb. See patient relations representative image below. I placed an NG [...] Duke Tidwell - 04/01/2020 3:28 PM EST Android Programmer Encounter Note Patient Name: Linda Abel : [id number] MR#: [id number] Admit Date: 03/23/2020 5:51 AM Hospital Day 9 days Narrative: Follow-up visit for continued assessment and support. Patient was not available for visit and I will visit an other time. Assessment: Intervention and Outcome: Follow-up: Time in Direct Care: Duke Tidwell 04/01/2020 * Alesha Casillas RN - 04/01/2020 11:17 AM EST OFFICE OF CARE MANAGEMENT Natural Gas Plant Technician Follow-up Note Alesha Casillas RN reviewed record and discussed patient with Care Team. Patient plan of care discussed in multidisciplinary rounds and assessment for continuing care and discharge needs. Diagnosis: IPMN (intraductal papillary mucinous neoplasm) LOS Hospital: 9 days INSURANCE: Payor: MEDICARE / Plan: MEDICARE PART A & B / Product Type: *No Product type* / SECONDARY INSURANCE: [employer] [facility] DECISION MAKER: Attempt Cardiopulmonary Resuscitation - Inpatient <no information> Patient continues to require hospitalization. Per team, patient requires inpatient status r/t nausea, Ct scan, rechecking labs. Discharge date planned for if medically ready. / Current Referral in place: [facility] for RN Transportation: Son will drive patient home via private vehicle when medically ready. Support: Son Natural [employer] Plant Technician to follow with team and family to assist with discharge needs when patient ready for discharge. Alesha Casillas RN Case Management pgr [phone] * Davian Carolina MD - 04/01/2020 9:13 AM EST Surgical Oncology Inpatient Progress Note Patient Name: Linda Abel DOB; Age: 6 1945; 74 y.o. Room/Bed: [address] [place], [place] [address] Today's Date: 04/01/20 ID: Linda Abel is [...] Mccormack MD Surgical Oncology Service Team Pager #[phone] 04/01/20 9:13 AM Surgery attending addendum I [...] 9:34 AM This note was created using [employer]) voice recognition software. * Gina Greer RN - 03/31/2020 2:58 PM EST Diabetes Clinical Nurse Specialist Met with Mrs. Abel to discuss diabetes prevention. Pt was found to have pre-diabetes (HbA1c 5.8%) and is now S/P [place] on 03/23/20. Encouraged pt to eat a [...] She had a regular diet, tolerated well. Flower Grader to bedside to speak w/ pt. Adequate [...] after suppository yesterday - BP readings from [facility] have improved significantly SBP 120-140s, continues to [...] Total Evaluation Minutes, Occupational Therapy: 23 Pager: [phone] PEPITO Kirk Occupational Therapy Rehabilitation Department * [...] nutrient intake and support healing ?? Added Azeri yogurt with meals and reviewed foods for [...] encounter: 53.3 kg (117 lb 9.6 oz). [place] Body Weight: 50 kg Usual Body Weight: [...] regime. 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 She states she has support to choose soft easy to digest foods post DC and was appreciative of review of role of healthy CHO foods for healthy nutrition to support healing. Protein-calorie Malnutrition: Not identified (Vadim, KHRISEN J Parenteral Enteral Nutr. 2011; 36(3): 273-83) Nutrition to continue to follow up while inpatient JANET GRIMES RD Pager #:[phone] * Lisa Villa, TERMINAL SYSTEM OPERATOR - 03/31/2020 9:04 AM EST Physical [...] her, FOS to upstairs bedroom, PICC placed TERMINAL SYSTEM OPERATOR pt was independent, drives, feisty* DME: None Precautions/Special Considerations:no BPs RUE, PICC, NGT, NPO, confusion, JOURNEYMAN WIREMAN, Calderón and drains Lapsites, L breast incision [...] of the patient. Time IN / OUT: [id number] Total Evaluation Minutes, Physical Therapy: 16(TEF 1) Lisa Villa PTA Pager: [phone] Physical Therapy Inpatient Rehabilitation Department * Davian Carolina MD - 03/31/2020 7:26 AM EST Surgical Oncology Inpatient Progress Note Patient Name: Linda MERAZ; Age: 6 1945; 74 y.o. Room/Bed: [address] [place] [address]-A Today's Date: 03/31/20 ID: Linda Abel is [...] after suppository yesterday - BP readings from [facility] have improved significantly SBP 120-140s, continues to [...] Mccormack MD Surgical Oncology Service Team Pager #[phone] 03/31/20 7:23 AM Surgery attending addendum I [...] 2:36 PM This note was created using [employer] voice recognition software. * Elma Zacarias MD [...] 11:26 AM EST OFFICE OF CARE MANAGEMENT Natural Gas Plant Technician Follow-up Note Alesha Casillas RN reviewed record and discussed patient with Care Team. Patient plan of care discussed in multidisciplinary rounds and assessment for continuing care and discharge needs. Diagnosis: IPMN (intraductal papillary mucinous neoplasm) LOS Hospital: 7 days INSURANCE: Payor: MEDICARE / Plan: MEDICARE PART A & B / Product Type: *No Product type* / SECONDARY INSURANCE: [facility] DECISION MAKER: Attempt Cardiopulmonary Resuscitation - Inpatient <no information> Patient continues to require hospitalization. Per team, patient requires inpatient status r/t stopping TPN, diabetes teaching needed and Medicine consult for HTN management. Discharge date planned for 04/01 if medically ready. Current Referral in place: [facility] for RN. Transportation: Son will drive patient home via private vehicle when medically ready. Support: Son Natural Gas Plant Technician to follow with team and family to assist with discharge needs when patient ready for discharge. Alesha Casillas RN Case Management pgr [phone] * Davian Carolina MD - 03/30/2020 7:05 AM EST Surgical Oncology Inpatient Progress Note Patient Name: Linda MERAZ; Age: 6 1945; 74 y.o. Room/Bed: [address] [place] [address] Today's Date: 03/30/20 ID: Linda Abel is [...] Mccormack MD Surgical Oncology Service Team Pager #[phone] 03/30/20 7:05 AM Surgery Attending Addendum I [...] morning. Denies pain, managed with scheduled medications. JOURNEYMAN WIREMAN d/c'd. Diet increased to Regular diet, tolerating [...] MERAZ; Age: 6 1945; 74 y.o. Room/Bed: 207/[facility] Today's Date: 03/29/20 ID: Linda Abel is [...] -BM this AM Hospital Course: POD 0 12/7: To OR for robotic Whipple, ROEL post-op. [...] PROT KHRIS Amylase: 03/24: 26 129: 22 03/26: 15 12: 327 03/28: 12 [...] med for her); PRNs for >160mmHg Discontinue JOURNEYMAN WIREMAN - transition to PO pain meds. NEURO: [...] Kang MD Surgical Oncology Service Team Pager #[phone] 03/29/20 9:57 AM Surgery Attending Addendum I [...] 12:33 PM This note was created using [employer]) voice recognition software. * aRj Kang MD - 03/28/2020 12:50 PM EST KHRIS drain and NGT removed this morning, Patient tolerated well without issue. Nurse updated. Raj Kang MD * Raj Kang MD - 03/28/2020 10:02 AM EST Surgical Oncology Inpatient Progress Note Patient Name: Linda MERAZ; Age: 6 1945; 74 y.o. Room/Bed: -A Today's Date: 03/28/20 ID: Linda Abel is [...] (117 lb 9.6 oz) Labs: Recent Labs 03/28/2014403/27/2031903/26/20144 WBC 6.9 7.6 9.4 HGB 11.3* 11.7 11.4* HCT 33.4* 35.5* 34.3* PLATELET 205 198 168 Recent Labs 03/28/2014403/27/2031903/26/20144 NA 139 139 139 K 3.7 3.8 3.4* CL 103 101 98 CO2 27 27 29 BUN 17 12 6* CREATININE 0.46* 0.49* 0.54* GLUCOSE -- 73 131 CALCIUM 8.4* 8.5 8.6 MAGNESIUM 0.87 0.87 0.82 PHOS 2.9 3.1 2.3* LFT's No results found for: ALKPHOS, AST, ALBUMIN, BILIDIR, BILITOT, ALT, PROT KHRIS Amylase: 03/24: 26 12: 22 03/26: 15 03/27: 327 03/28: [...] Kang MD Surgical Oncology Service Team Pager #[phone] 03/28/20 10:02 AM * Olayinka Ojeda OTA [...] Total Evaluation Minutes, Occupational Therapy: 30 Pager: [phone] PEPITO Kirk Occupational Therapy Rehabilitation Department * Davian Carolina MD - 03/27/2020 12:38 PM EST Surgical Oncology Inpatient Progress Note Patient Name: Linda MERAZ; Age: 6 1945; 74 y.o. Room/Bed: [address] [place], [place] [address] Today's Date: 03/27/20 ID: Linda Abel is [...] 03/27/2020 KHRIS Amylase: 03/24: 26 12: 22 03/26: 15 12: 327 Micro: Bile duct cx [...] YE MD Surgical Oncology Service Team Pager #[phone] 03/27/20 12:38 PM Surgery Attending Addendum I [...] date and time 03/27/2020 1800 TPN Adult [[id number]] Order Status Active Additives trace elements Zn-Cu-Mn-Se 1 mL Vit C6-X9-Q5-B5-B6 (B Complex) 1 mL zinc sulfate 10 [...] Intake 572 ml Output 2595 ml Net -2022 ml Admit Weight: 54.89 kg Estimated body mass index is 22.13 kg/m?? as calculated from the following: Height as of this encounter: 157.5 cm (5' 2). Weight as of this encounter: 54.9 kg (121 lb). [place] Body Weight: 50 kg Usual Body Weight: [...] up while inpatient. JOSUE LORA RD Pager #[phone] * Marisa Lance - 03/27/2020 10:20 AM [...] please obtain updated weight. Marisa Lance Pager: [phone] * Alesha Casillas RN - 03/26/2020 12:43 PM EST OFFICE OF CARE MANAGEMENT Natural Gas Plant Technician Follow-up Note Alesha Casillas RN reviewed record and discussed patient with Care Team. Patient plan of care discussed in multidisciplinary rounds and assessment for continuing care and discharge needs. Diagnosis: IPMN (intraductal papillary mucinous neoplasm) LOS Hospital: 3 days INSURANCE: Payor: MEDICARE / Plan: MEDICARE PART A & B / Product Type: *No Product type* / SECONDARY INSURANCE: [facility] DECISION MAKER: Attempt Cardiopulmonary Resuscitation - Inpatient <no information> Patient continues to require hospitalization. Per team, patient requires inpatient status r/t needing a CTA today. LFT increasing. Discharge date planned for 03/30 if medically ready. Current Referral in place: [facility] for RN Transportation: Son will drive patient home via private vehicle when medically ready. Support: Son Natural Gas Plant Technician to follow with team and family to assist with discharge needs when patient ready for discharge. Alesha Casillas RN Case Management pgr [phone] * Paty Kenney MD - 03/26/2020 10:00 AM EST Surgical Oncology Inpatient Progress Note Patient Name: Linda MERAZ; Age: 6 1945; 74 y.o. Room/Bed: 207/207-A Today's Date: 03/26/20 ID: Linda Abel is [...] Recent Labs 03/26/20 0145 03/25/20 0155 03/24/20 0828 03/23/20 1830 WBC 9.4 13.9* 16.3* 23.4* HGB 11.4* 11.2* 11.7 12.2 HCT 34.3* 33.5* 37.0 37.9 PLATELET 168 203 214 275 Recent Labs 03/26/20 0145 03/25/20 0155 03/24/20 1740 03/24/20 0828 03/23/20 [...] Total Protein 5.5 (L) 03/26/2020 KHRIS Amylase: 8: 26 129: 22 12: 15 Micro: Bile duct cx (03/23): NGTD [...] Kenney MD Surgical Oncology Service Team Pager #[phone] 03/26/20 10:00 AM * Maria Esther Blancas [...] in the hallway. Pain well controlled with JOURNEYMAN WIREMAN. Not passing gas, no BM, adequate urine [...] robotic whipple current risk factors include: PICC, JOURNEYMAN WIREMAN, acute pain, recent surgery, tubes/drains, and generalizedweakness. [...] her, FOS to upstairs bedroom, PICC placed TERMINAL SYSTEM OPERATOR pt was independent, drives, feisty* DME: None Precautions/Special Considerations:no BPs RUE, PICC, NGT, NPO, confusion, JOURNEYMAN WIREMAN, Calderón and drains Lapsites, L breast incision [...] Pain: comfortable at rest, minimal use of JOURNEYMAN WIREMAN, ?? Vital Signs: SpO2: 95% on 2L, [...] (P) 15 TEF PATRICIA JORDAN, PT Pager: [phone] Physical Therapy Inpatient Rehabilitation Department * Meera [...] N/A 12/05/2019 Mammo Stereotactic Biopsy Left 12/05/2019 [facility] RAD MAMMOGRAPHY ??? MASTECTOMY Right with RT ??? PRO BX/REMV, LYMPH NODE, DEEP AXILL Left 12/20/2019 BIOPSY OR EXCISION OF LYMPH NODE(S), OPEN, DEEP AXILLARY NODE(S) (WRVU 6.43) performed by Susan Rivera MD at [facility] ??? PRO COLONOSCOPY, DIAGNOSTIC 01/07/2014 COLONOSCOPY, DIAGNOSTIC performed by Izzy Johnson MD at [facility] ENDOSCOPY ??? PRO ENDOSCOPIC US EXAM, ESOPH N/A 11/15/2019 UPPER EUS- ENDOSCOPIC ULTRASOUND performed by Ralf Urrutia MD at [facility] ENDOSCOPY ??? PRO INTRAOP SENTINEL LYMPH ID W/DYE INJECTION Left 12/20/2019 INTRAOPERATIVE ID (MAPPING) SENTINEL LYMPH NODE,INCLUDES INJECTION (WRVU 2.5) performed by Susan Rivera MD at [facility] ??? PRO MASTECTOMY, SIMPLE, COMPLETE Left 12/20/2019 MASTECTOMY, SIMPLE, COMPLETE (WRVU 15.85) performed by Susan Rivera MD at [facility] Social History: Patient lives Alone, [...] day. 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 Precautions/Special Considerations: Fall risk, PICC, NG [...] 59.67% limited in ADL performance per the [facility]. Patient is well below her baseline [...] and measurable assessment of functional outcome. Pager: [phone] Meera Salinas OT 03/25/2020 Occupational Therapy Rehabilitation Department * Alice Ye R - 03/25/2020 1:33 PM EST Surgical Oncology Inpatient Progress Note Patient Name: Linda MERAZ; Age: 6 1945; 74 y.o. Room/Bed: 210210-B Today's Date: 03/25/20 ID: Linda Abel is [...] to 110s overnight Hospital Course: POD 0 12/7: to OR for robotic Whipple, ROEL post-op. [...] 95 Heart Rate: [95-115] Blood Pressure BP: 182/86(NUCLEAR STATION OPERATOR Nikki notified) BP: (141-190)/(86-107) Respiratory Rate Resp: 18 [...] YE MD Surgical Oncology Service Team Pager #[phone] 03/25/20 1:33 PM * Beatriz Singh RN [...] MERAZ; Age: 6 1945; 74 y.o. Room/Bed: [address] [place], [place] [address]A Today's Date: 03/24/20 ID: Linda Abel is [...] emphysema, continue to encourage appropriate usage of JOURNEYMAN WIREMAN. Would be good to get OOB today. [...] YE MD Surgical Oncology Service Team Pager #[phone] 03/24/20 9:51 AM Surgery attending addendum I [...] that is improved when she pushes her JOURNEYMAN WIREMAN button. O: Temp: [36.3 ??C (97.3 ??F)-37 [...] Result Value Ref Range Surgical Pathology Report [id number] Location: OR; OR09; A The signing pathologist has (i) examined the relevant preparation(s) for the specimen(s) and (ii) rendered or confirmed the diagnosis(es). . Frozen Section FROZEN SECTION DIAGNOSIS _BFS1,2 Pancreatic neck margin: Negative for tumor 03/23/20 13:12 Electronically signed by: Hiro Burton MD Verified: 03/23/2020 Pathologist Performed at: -[facility] Dept. of Pathology, [place], [place] This intraoperative consultation should be interpreted [...] place, warm and well perfused AP Linda Abel is a 74 y.o. female [...] I saw Maricruz this am in the [place] area. She is here with her son- [...] RN - 04/10/2020 11:10 AM ESTAssociated Order(s): VAS PICC REWIRE PICC/Midline Insertion Procedure Note [...] to the planned procedure. Hand Hygiene: The video technician did perform hand hygiene prior to line insertion. Catheter type: PICC Lot number: [id number] Procedure Technique: Skin was prepped with chlorhexidine. [...] for home TPN SHARON ALFARO RN 04/10/2020 Byron Harden RN - 03/24/2020 4:54 PM ESTAssociated Order(s): [...] to the planned procedure. Hand Hygiene: The video technician did perform hand hygiene prior to line insertion. Catheter type: PICC Lot number: [id number] Procedure Technique: Skin was prepped with chlorhexidine. [...] Outcome: Ongoing (Interventions Implemented as Appropriate) 03/24/20 18004/09/202019 Coping/Psychosocial Plan Of Care Reviewed With -- patient Plan of Care Review Progress progress toward functional goals as expected -- Seths pain has been well controled with her [...] EST OUTCOME EVALUATION NOTE: ?? OUTCOME SUMMARY: Pt??pain??2-3 pain today, managed w/ prn dilaudid.??Pt bps [...] Urrutia MD - 04/02/2020 4:04 PM EST [facility] Operative Note Patient Name: Linda Abel : [id number] MR#: [id number] Case Date: 04/02/2020 Surgeon: Surgeon(s) and Role: * Ralf Urrutia MD - Primary Preoperative diagnosis: Post Whipple Postoperative diagnosis: * No post-op diagnosis entered * Procedure(s): EGD, UPPER GI ENDOSCOPY Please see Provation report for details. * Consult Note - Chela Rivas - 04/02/2020 11:10 AM EST GASTROENTEROLOGY & HEPATOLOGY CONSULTATION Initial Consult Note Requesting Provider: Davian Carolina MD REASON FOR CONSULTATION Nausea/vomiting s/p Whipple HISTORY OF PRESENT ILLNESS Linda Abel is a 74 y.o. PMHX breast cancer s/p mastectomy, main duct IPMN s/p Whipple with [id number] 10 days ago. GI consulted for worsening [...] file Gets together: Not on file Attends restorationism service: Not on file Active member of [...] mastectomy, main duct IPMN s/p Whipple with [id number] 10 days ago. GI consulted for worsening [...] M.D. Fellow in Gastroenterology and Hepatology Pager #[phone] 04/02/2020 Associated attestation - Ralf Urrutia MD [...] complicated by abdominal pain requiring a dilaudid JOURNEYMAN WIREMAN that was weaned off on 03/28. She [...] Diagnosis Date ??? Basal cell carcinoma 2009 [facility]-back ??? Breast cancer Meds: No current facility-administered [...] Inhaler ??? fluticasone propionate (FLONASE) 50 mcg/actuation Reva, Suspension 1 spray daily. ??? Creon 24,000-76,000 [...] N/A 12/05/2019 Mammo Stereotactic Biopsy Left 12/05/2019 [facility] RAD MAMMOGRAPHY ??? MASTECTOMY Right with RT ??? PRO BX/REMV, LYMPH NODE, DEEP AXILL Left 12/20/2019 BIOPSY OR EXCISION OF LYMPH NODE(S), OPEN, DEEP AXILLARY NODE(S) (WRVU 6.43) performed by Susan Rivera MD at [facility] ??? PRO COLONOSCOPY, DIAGNOSTIC 01/07/2014 COLONOSCOPY, DIAGNOSTIC performed by Izzy Johnson MD at [facility] ENDOSCOPY ??? PRO ENDOSCOPIC US EXAM, ESOPH N/A 11/15/2019 UPPER EUS- ENDOSCOPIC ULTRASOUND performed by Ralf Urrutia MD at [facility] ??? PRO INTRAOP SENTINEL LYMPH ID W/DYE INJECTION Left 12/20/2019 INTRAOPERATIVE ID (MAPPING) SENTINEL LYMPH NODE,INCLUDES INJECTION (WRVU 2.5) performed by Susan Rivera MD at [facility] ??? PRO MASTECTOMY, SIMPLE, COMPLETE Left 12/20/2019 MASTECTOMY, SIMPLE, COMPLETE (WRVU 15.85) performed by Susan Rivera MD at [facility] ??? PRO OMENTAL FLAP, INTRA-ABDOMINAL 03/23/2020 @OMENTAL FLAP, INTRA-ABDOMINAL (WRVU 6.54) performed by Davian Carolina MD at [facility] ??? PRO UNLISTED PX PNCRS N/A 03/23/2020 ROBOTIC PANCREATECTOMY,WHIPPLE, PARTIAL GASTRECTOMY W/ PANCREATOJEJUNOSTOMY performed by Davian Carolina MD at [facility] Family History: Siblings: Sister [...] MD Internal Medicine, PGY3 BETHANY Pager # [phone] Associated attestation - Nataly Leggett MD - [...] Recent Labs 03/30/20 0120 03/29/20 0120 03/28/20 014 WBC 10.4* 6.8 6.9 HGB 12.0 11.3* [...] is low normal I have asked Gina Gerer ELECTRICAL MANUFACTURING TECHNICIAN CDE to meet with her to provide [...] complicated by abdominal pain requiring a dilaudid JOURNEYMAN WIREMAN that was weaned off on 03/28. She [...] Inhaler ??? fluticasone propionate (FLONASE) 50 mcg/actuation Reva, Suspension 1 spray daily. ??? Creon 24,000-76,000 [...] N/A 12/05/2019 Mammo Stereotactic Biopsy Left 12/05/2019 [facility] RAD MAMMOGRAPHY ??? MASTECTOMY Right with RT ??? PRO BX/REMV, LYMPH NODE, DEEP AXILL Left 12/20/2019 BIOPSY OR EXCISION OF LYMPH NODE(S), OPEN, DEEP AXILLARY NODE(S) (WRVU 6.43) performed by Susan Rivrea MD at [facility] ??? PRO COLONOSCOPY, DIAGNOSTIC 01/07/2014 COLONOSCOPY, DIAGNOSTIC performed by Izzy Johnson MD at [facility] ??? PRO ENDOSCOPIC US EXAM, ESOPH N/A 11/15/2019 UPPER EUS- ENDOSCOPIC ULTRASOUND performed by Ralf Urrutia MD at [facility] ??? PRO INTRAOP SENTINEL LYMPH ID W/DYE INJECTION Left 12/20/2019 INTRAOPERATIVE ID (MAPPING) SENTINEL LYMPH NODE,INCLUDES INJECTION (WRVU 2.5) performed by Susan Rivera MD at [facility] ??? PRO MASTECTOMY, SIMPLE, COMPLETE Left 12/20/2019 MASTECTOMY, SIMPLE, COMPLETE (WRVU 15.85) performed by Susan Rivera MD at [facility] ??? PRO OMENTAL FLAP, INTRA-ABDOMINAL 03/23/2020 @OMENTAL FLAP, INTRA-ABDOMINAL (WRVU 6.54) performed by Davian Carolina MD at [facility] ??? PRO UNLISTED PX PNCRS N/A 03/23/2020 ROBOTIC PANCREATECTOMY,WHIPPLE, PARTIAL GASTRECTOMY W/ PANCREATOJEJUNOSTOMY performed by Davian Carolina MD at [facility] OR Family History: Siblings: Sister [...] CBC: Recent Labs 03/30/20 0120 03/29/20 0120 03/28/20144 WBC 10.4* 6.8 6.9 HGB 12.0 11.3* [...] MD Internal Medicine, PGY3 BETHANY Pager # [phone] Associated attestation - Nataly Leggett MD - [...] x1 for systolic greater than 180. Pain 06/24; managed with scheduled meds, and PRN Toradol. [...] pain 2-3/10 pain today, managed well with JOURNEYMAN WIREMAN. Pt tolerating clears w/o nausea or emesis. AUOP, no BM this shift. Pt bps 160-170s/90-100s overnight, md aware, given 2x labetalol per md orders. Pt resting between care. ?? PLAN MOVING FORWARD: Manage pain; wean JOURNEYMAN WIREMAN Monitor I&Os Encourage OOB, ambulation ?? INDIVIDUALIZED [...] reporting 3/10 pain today, managed well with JOURNEYMAN WIREMAN. NGT and KHRIS drain removed this morning [...] PLAN MOVING FORWARD: ?? Manage pain; wean JOURNEYMAN WIREMAN OOB activities; ROBF ?? INDIVIDUALIZED FALL PREVENTION [...] OUTCOME SUMMARY: ?? Pain well controlled with JOURNEYMAN WIREMAN this shift. VSS.Tolerating sips &??chips diet, no [...] fall risk factors per assessment: [current deficits]:?PICC, JOURNEYMAN WIREMAN, Pain, recent surgery, tubes/drains, generalized weakness ? [...] pain this shift, reporting good management with JOURNEYMAN WIREMAN. NGT clamped this morning by MD Carolina~1000, [...] PLAN MOVING FORWARD: ?? Manage pain; wean JOURNEYMAN WIREMAN OOB activities; ROBF ?? INDIVIDUALIZED FALL PREVENTION [...] Outcome: Ongoing (Interventions Implemented as Appropriate) 03/24/20 18003/26/202029 Coping/Psychosocial Plan Of Care Reviewed With -- patient Plan of Care Review Progress progress toward functional goals as expected -- OUTCOME EVALUATION NOTE: OUTCOME SUMMARY: ?? Pain well controlled with JOURNEYMAN WIREMAN this shift. VSS.Tolerating sips &??chips diet, no [...] fall risk factors per assessment: [current deficits]:?PICC, JOURNEYMAN WIREMAN, Pain, recent surgery, tubes/drains, generalized weakness ? [...] minimal pain this shift, managed well with JOURNEYMAN WIREMAN. Pt went to CT scan this morning, [...] PLAN MOVING FORWARD: ?? Manage pain; wean JOURNEYMAN WIREMAN OOB activities; ROBF Wean O2 ?? INDIVIDUALIZED [...] NOTE: OUTCOME SUMMARY: Pain well controlled with JOURNEYMAN WIREMAN this shift. VSS.Tolerating sips & chips diet, [...] risk factors per assessment: [current deficits]: PICC, JOURNEYMAN WIREMAN, Pain, recent surgery, tubes/drains, generalized weakness ?? [...] NOTE: OUTCOME SUMMARY: Pain well controlled with JOURNEYMAN WIREMAN. Patient tachycardic in the 110's this shift, [...] risk factors per assessment: [current deficits]: PICC, JOURNEYMAN WIREMAN, Pain, recent surgery, tubes/drains, generalized weakness Assistance [...] draining CYU adequately, -flatus/-BM, periorbital swelling noted, JOURNEYMAN WIREMAN controlling pain, down for PICC line d/t inadequate IV access/inability to draw labs d/t no IV/BP on R arm, double lumen PICC in place, C/D/I, MIVF, worked with PT/OT, pt resting comfortably between nursing care, bed in lowest position, call light within reach PLAN MOVING FORWARD: Increase mobilization Pain control/wean JOURNEYMAN WIREMAN Increase diet DC planning INDIVIDUALIZED FALL PREVENTION [...] EST Problem: Health Knowledge, Opportunity to Enhance (Adult,NICU,Hyde,Obstetrics,Pediatric) Goal: Knowledgeable about Health Subject/Topic Patient will demonstrate the desired outcomes by discharge/transition of care. Outcome: Outcome (s) achieved Date Met: 03/24/20 Peripherally Inserted Central Catheter (PICC) Teaching Sheet Peripherally inserted central catheters (tzsd-sr-aszb) (PICC) are used when you need IV [...] midline catheter? PICC lines are used for retirement treatments. PICC lines may be used for [...] can be set up via the nurse Natural Gas Plant Technician to help you. What are possible complications [...] Efficacy, Safety, Use, and Administration of [employer], [employer] 2005 * Plan of Care - Patricia Jordan, [...] N/A 12/05/2019 Mammo Stereotactic Biopsy Left 12/05/2019 [facility] RAD MAMMOGRAPHY ??? MASTECTOMY Right with RT ??? PRO BX/REMV, LYMPH NODE, DEEP AXILL Left 12/20/2019 BIOPSY OR EXCISION OF LYMPH NODE(S), OPEN, DEEP AXILLARY NODE(S) (WRVU 6.43) performed by Susan Rivera MD at [facility] ??? PRO COLONOSCOPY, DIAGNOSTIC 01/07/2014 COLONOSCOPY, DIAGNOSTIC performed by Izzy Johnson MD at [facility] ENDOSCOPY ??? PRO ENDOSCOPIC US EXAM, ESOPH N/A 11/15/2019 UPPER EUS- ENDOSCOPIC ULTRASOUND performed by Ralf Urrutia MD at [facility] ??? PRO INTRAOP SENTINEL LYMPH ID W/DYE INJECTION Left 12/20/2019 INTRAOPERATIVE ID (MAPPING) SENTINEL LYMPH NODE,INCLUDES INJECTION (WRVU 2.5) performed by Susan Rivera MD at [facility] ??? PRO MASTECTOMY, SIMPLE, COMPLETE Left 12/20/2019 MASTECTOMY, SIMPLE, COMPLETE (WRVU 15.85) performed by Susan Rivera MD at [facility] Social History: Pt lives alone in a multi level home with 3 steps to enter. 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 Oh, I'm back thinking like priscilain, I already had surgery I double mask Objective: Pt seen for evaluation today. Pain: Pushed JOURNEYMAN WIREMAN x 1, abdominal discomfort, Vital Signs: SpO2: [...] pt and answered all questions, spoke with battery recharger re: private room when possible, as pt [...] Therapy: (P) 25 PATRICIA JORDAN, PT Pager: [phone] Physical Therapy Inpatient Rehabilitation Department * Initial [...] None Anticipated Length Of Stay (If known): 12/14 Admission order confirmed/dated: Davian Carolina MD 02/24/20 1111 Current Decision-Making Capacity: Self, A&Ox3, Full Capacity Advance Care Planning: Attempt Cardiopulmonary Resuscitation - Inpatient <no information> If AD's have not been completed Roberto Carlos would be surrogate decision maker per [place] surrogate decision making law. (Only good for 90 days) Any patient receiving care at [facility] must abide by [place] law. The hierarchy for surrogate decision making [...] (i) The agent with financial power of commonwealth attorney or a conservator appointed in accordance [...] a full flight to bedroom [address] [facility] [address] Social & Family Supports/Community Resources: DALJIT Umanzor Extended Emergency Contact Information Primary Emergency Contact: Roberto Carlos [place] [id number] [place] [address] [place] of [place] Relation: Child Secondary Emergency Contact: Abby [place] [id number] [place] [address] Mobile Relation: Son/Ynxuwvhk-hv-qdi Behavioral [facility] History: Denies Other Pertinent/Service Specific Information: No Health/Prescription Coverage: Primary Insurance: MEDICARE Payor: MEDICARE / Plan: MEDICARE PART A & B / Product Type: *No Product type* / Secondary Insurance: [facility] Prescription Coverage: Medicare D Preferred Pharmacy: [facility] - [place], [place] - [address] [place] [id number] [facility] - [address] [facility] [address] [facility] [[email or web address]] [address] Primary Care Provider: Zeny James APRN [phone] Patient/Caregiver Goals of Treatment: feel better Potential Needs for Transition of Care: Rehab/SNF: n/a Home Health: The patient has been provided a list of Home Health Agencies placed. Provided patient with [facility] Star Quality Rating for Home care. Patient requests referral to [facility] For RN PHONE: [phone] FAX: [phone]. Expected date of discharge: 03/30. Referral routed to the Chief [employer] for matching with agency/vendor and to provide any required information. DME: n/a Community Resources: No Transportation: Son Dialysis: n/a Anticipated Barriers to Discharge/Special Considerations: None Assessment: [facility] for RN routed and orders pended. Patient [...] transition of care planning. Alesha Casillas RN advertising representative Pager: [phone] * Plan of Care - Ness Cummings RN - 03/24/2020 1:24 AM EST OUTCOME EVALUATION NOTE: OUTCOME SUMMARY: Patient arrived from PACU to room 210A at 2223 . A&O x4. VSS. Pain 09/24, managed with JOURNEYMAN WIREMAN and scheduled IV Tylenol. Frequent reminders given to use JOURNEYMAN WIREMAN. Remains on 3L NC over night. Subcutaneous [...] per assessment: [current deficits]: Recent surgery, pain, JOURNEYMAN WIREMAN, infusing PIV, general weakness Assistance [level of [...] Carolina MD - 03/23/2020 4:56 PM EST [facility] Operative Note Patient Name: Linda Abel : [id number] MR#: [id number] Case Date: 03/23/2020 Surgeon: Surgeon(s) and Role: * Davian Carolina MD - Primary Registered Nurse Molder Offbearer: Whitney Rangel RN Preoperative diagnosis: IPMN Postoperative diagnosis: IPMN Procedure(s) (LRB): ROBOTIC PANCREATECTOMY,WHIPPLE, PARTIAL GASTRECTOMY W/ PANCREATOJEJUNOSTOMY (N/A) MODIFIER ROBOT,ANAMAURYI XI (N/A) @OMENTAL FLAP, INTRA-ABDOMINAL (WRVU 6.54) [...] margin, pancreatic neck margin- FROZEN Blue-vascular groove\ [place]-SMA [id number] [id number] IPMN Head of pancreas, antrum, duodenum excision YES, Please perform frozen section No 03/23/2020 12:38 PM Number of tissue samples (in container) 1 Time specimen removed from patient: 12:33 PM SPECIMEN TO PATHOLOGY Gallbladder and omentum RM 09 [id number] IPMN Gallbladder and omentum excision No 03/23/2020 12:44 PM Time specimen removed from patient: 12:43 PM Number of tissue samples (in container) 1 Biospecimen to store? No PATHOLOGY ORDER UPDATE Gallbladder only 03/23/2020 12:51 PM Additional information: Correction Enter requested changes: Gallbladder eD-H Order Id number [id number] PATHOLOGY ORDER UPDATE Head of pancreas, antrum, duodenum & OMENTUM 03/23/2020 12:51 PM Additional information: Additional Info Enter requested changes: omentum eD-H Order Id number [id number] Drains: Drain/Device Site 12/20/19 1301 Left breast [...] Next, we placed the 15 mm laparoscopic contract administrative assistant port in the right mid rectus position [...] the robotic portion of the operation. The [employer] patient cart was brought in and [...] The proximal jejunum was divided using the Worton stapler (white load). The specimen side of [...] was divided using 2 firings of the Worton stapler (green load and a blue load). [...] lateral extent exposing both the vein of [place] superiorly and the first jejunal branch inferiorly. [...] then ligated and divided the vein of Diana across metal clips at its insertion with [...] trocars and extended the 15 mm lap contract administrative assistant port for approximately an additional 3 cm. [...] and extracted through the 15 mm laparoscopic contract administrative assistant port via a Endo Catch specimen retrieval [...] complete we turned our attention to the kmxg-xc-ioemcf stitches. An tiny enterotomy was created immediately [...] the reconstruction complete we introduced a 19 [place] Darius drain via the most right lateral [...] new suction and cautery at closure: No Tifdviwsi-ofuvrzfls-ujbgsixkeo abdominal cavity wash: No Qqlaszetd-anfkosxua-eyzrlgxyhk wound wash: No Attestation: Case Date: 03/23/2020 I performed this procedure without the involvement of a resident. DAVIAN CAROLINA MD 03/23/2020 documented in this encounter Plan of Treatment Upcoming Encounters Date Type Department Care Team (Late st Contact Info) Description 11/02/2023 1:00 PM EDT Office Visit Hematology/Oncology at [address] [address] Mary Nails APRN [address] [place] [address] DR [facility]ICAL ONCOLOGY [place], [place] [id number] 11/02/2023 1:30 PM EDT Infusion Hematology Oncology at [address] [address] Scheduled Referrals Name Type Priority Associated Diagnoses Order Schedule Referral to Endocrinology Outpatient Referral Routine Pre-diabetes Ordered: 04/11/2020 documented as of this encounter Procedures Procedure Name Priority Date/Time Associated Diagnosis Comments POCT GLUCOSE Routine 04/11/2020 12:02 PM EST POCT GLUCOSE Routine 04/11/2020 7:43 AM EST HEMOGRAM Routine 04/11/2020 5:35 AM EST DIFFERENTIAL, AUTOMATED Routine 04/11/20 5:35 AM EST HC CBC,PLT & AUTO [...] 3:14 AM EST DIFFERENTIAL, AUTOMATED Routine 04/10/20 3:14 AM EST HC CBC,PLT & AUTO [...] 12:30 AM EST DIFFERENTIAL, AUTOMATED Routine 04/08/20 12:30 AM EST HC CBC,PLT & AUTO [...] POCT GLUCOSE Routine 04/02/2020 5:17 PM EST UPPER GI ENDOSCOPY Routine 04/02/2020 2: 52 [...] 03/23/2020 9:25 AM EST Omental Flap, Intra-Abdominal ([id number]) 03/23/2020 7:43 AM EST IPMN MODIFIER ROBOT,DAVINCI XI 03/23/2020 7:43 AM EST IPMN Unlisted Px Pncrs ([id number]) 03/23/2020 7:43 AM EST IPMN ABORH RECHECK STATUS Routine 03/23/2020 7:24 AM EST ABO/RH TYPING Routine 03/23/2020 7:24 AM EST ANTIBODY SCREEN Routine 03/23/2020 7:24 AM EST HC ABO-MICROTITER Routine 03/23/2020 7:2 4 AM EST documented in this encounter Results * Prealbumin (09/28/2020 11:52 AM EDT) Prealbumin 21 20 - 40 mg/dL [facility] Comment: Prealbumin levels are generally lower in the pediatric population; adult concentrations are usually attained near puberty. Blood 09/28/2020 11:5 2 AM EDT 09/28/2020 12:17 PM EDT Narrative Resulting Agency Comment Spec In Lab Anjelica Jordan APRN CHEMISTRY ORDERA BLES [facility] [place] [address] * (ABNORMAL) Comprehensive metabolic panel (non-fasting) (09/28/2020 11:52 AM EDT) Glucose Lvl 127 65 - 199 mg/dL [facility] Comment:Diabetes: >=200 mg/d L plus symptoms BUN 16 8 - 18 mg/dL [facility] Creatinine 0.65(L) 0.70 - 1.20 mg/dL [facility] Sodium 136 135 - 145 mmol/L [facility] Potassium 4.0 3.5 - 5.0 mmol/L [facility] Comment: Please note: ??Patients with WBC >100,000 may have falsely elevated Potassium levels. ??For accurate Potassium quantification in these patients send serum separator tube (gold top) for subsequent determinations. ??Contact the Clinical Chemistry Laboratory if there are any questions. Chloride 101 98 - 107 mmol/L [facility] CO2 25 22 - 31 mmol/L [facility] Anion Gap 10 5 - 15 mmol/L [facility] Calcium 9.0 8.5 - 10.5 mg/dL [facility] Total Protein 6.5 6.1 - 8.0 gm/dL [facility] Albumin 4.1 3.2 - 5.2 gm/dL [facility] AST 28 0 - 30 unit/L [facility] ALT 27 0 - 30 unit/L [facility] Alk Phos 148(H) 35 - 105 unit/L [facility] Total Bilirubin 0.3 0.2 - 1.3 mg/dL [facility] Estimated GFR 88 >=60 mL/min/1. 73 m?? [facility] Comment: This patient? s estimated glomerular [...] Agency Comment Spec In Lab Anjelica Jordan NUCLEAR STATION OPERATOR CHEMISTRY ORDERA BLES [facility] [place] [address] * POCT Glucose (04/11/2020 12:02 PM EST) [facility] POC Glucose 150 65 - 199 mg/dL [facility] Comment: Supplemental ranges: <140 mg/dL before meals <180 mg/dL all other times of the day Blood specimen (specimen) 04/11/2020 12:02 PM EST 04/11/2020 12:02 PM EST Davian Carolina MD POINT OF CARE TEST ORDERABLES [facility] [place] [address] * POCT Glucose (04/11/2020 7:43 AM EST) [facility] POC Glucose 162 65 - 199 mg/dL [facility] Comment: Supplemental ranges: <140 mg/dL before meals <180 mg/dL all other times of the day Blood specimen (specimen) 04/11/2020 7:43 AM EST 04/11/2020 7:43 AM EST Davian Carolina MD POINT OF CARE TEST ORDERABLES [facility] [place] [address] * (ABNORMAL) Differential, Automated (04/11/2020 5:35 AM EST) Pathologist [facility] [place] Neutrophils % 75.6 % [facility] Neutr Abs (ANC) 9.98(H) 1.70 - 6.10 x10(3)/mc L [facility] Lymphocytes % 9.9 % [facility] Lymphocytes Abs 1.3 0.9 - 3.2 x10(3)/mc L [facility] Monocytes % 7.6 % [facility] Monocyte Abs 1.0(H) 0.3 - 0.9 x10(3)/mc L [facility] Eosinophils % 3.9 % [facility] Eosinophils Abs 0.5(H) 0.0 - 0.4 x10(3)/[facility] Basophils % 0.7 % [facility] Basophils Abs 0.1 0.0 - 0.1 x10(3)/[facility] Immature Gran % 2.30 % [facility] Comment: Immature granulocytes(IG's)percentage and absolute count will include metamyelocytes, myelocytes, and promyelocytes. Blood smears from CBCs yielding IG's will be scanned manually for concordance. If this scan disagrees with the automated IG or if promyelocytes are noted, a manual differential will be performed. Nory Gran Abs 0.31(H) 0.00 - 0.04 x10(3)/[facility] Blood specimen (specimen) 04/11/2020 5:35 AM EST 04/11/2020 5:43 AM EST Narrative Resulting Agency Comment Spec In Lab Anjelica Jordan APRN HEMATOLOGY ORDER MAGAN [facility] [place] [address] * (ABNORMAL) Hemogram (04/11/2020 5:35 AM EST) WBC 13.2(H) 4.0 - 9.5 x10(3)/[facility] RBC 3.22(L) 4.00 - 5.21 x10(6)/[facility] Hemoglobin 9.7(L) 11.7 - 15.5 gm/dL [facility] Hematocrit 29.4(L) 35.7 - 45.8 % [facility] MCV 91.3 82.6 - 94.4 fL [facility] MCH 30.1 27.1 - 32.0 pg [facility] MCHC 33.0 31.7 - 35.0 gm/dL [facility] Platelets 371(H) 145 - 357 x10(3)/[facility] RDWSD 44.1 37.0 - 46.0 fL [facility] RDWCV 13.2 11.5 - 14.1 % [facility] MPV 10.1 7.6 - 12.9 [facility] nRBC % Auto 0.0 % [facility] nRBC Abs Auto 0.000 0.000 - 0.000 x10(3)/[facility] Blood specimen (specimen) 04/11/2020 5:35 AM EST 04/11/2020 5:43 AM EST Narrative Resulting Agency Comment Spec In Lab Anjelica Jordan NUCLEAR STATION OPERATOR HEMATOLOGY ORDER MAGAN Performing Organization Address [facility] [place] [address] * Phosphorus (04/11/2020 5:35 AM EST) Phosphorus 3.4 2.5 - 4.5 mg/dL [facility] Blood specimen (specimen) 04/11/2020 5:35 AM EST 04/11/2020 5:43 AM EST Narrative Resulting Agency Comment Spec In Lab Anjelica Jordan NUCLEAR STATION OPERATOR CHEMISTRY ORDERA BLES Performing Organization Address [facility] de Phone Number [facility] [place] [address] * Magnesium (04/11/2020 5:35 AM EST) Magnesium 0.69 0.69 - 1.07 mmol/L [facility] Blood specimen (specimen) 04/11/2020 5:35 AM EST 04/11/2020 5:43 AM EST Narrative Resulting Agency Comment Spec In Lab Anjelica Jordan NUCLEAR STATION OPERATOR CHEMISTRY ORDERA BLES Performing Organization Address City/[facility] Co de Phone Number [facility] [place] [address] * (ABNORMAL) Basic Metabolic Panel (non-fasting) (04/11/2020 5:35 AM EST) Glucose Lvl 165 65 - 199 mg/dL [facility] Comment:Diabetes: >=200 mg/d L plus symptoms BUN 15 8 - 18 mg/dL [facility] Creatinine 0.34(L) 0.70 - 1.20 mg/dL [facility] Sodium 130(L) 135 - 145 mmol/L [facility] Potassium 4.3 3.5 - 5.0 mmol/L [facility] Comment: Please note: ??Patients with WBC >100,000 may have falsely elevated Potassium levels. ??For accurate Potassium quantification in these patients send serum separator tube (gold top) for subsequent determinations. ??Contact the Clinical Chemistry Laboratory if there are any questions. Chloride 99 98 - 107 mmol/L [facility] CO2 25 22 - 31 mmol/L [facility] Anion Gap 6 5 - 15 mmol/L [facility] Calcium 7.7(L) 8.5 - 10.5 mg/dL [facility] Estimated GFR 109 >=60 mL/min/1. 73 m?? [facility] Comment: This patient? s estimated glomerular [...] APRN CHEMISTRY ORDERA BLES Performing Organization Address City/[facility] Co de Phone Number [facility] [place] [address] * POCT Glucose (04/11/2020 3:37 AM EST) POC Glucose 184 65 - 199 mg/dL [facility] Comment: Supplemental ranges: <140 mg/dL before meals <180 mg/dL all other times of the day Blood specimen (specimen) 04/11/2020 3:37 AM EST 04/11/2020 3:37 AM EST Davian Carolina MD POINT OF CARE TEST ORDERABLES Performing Organization Address [facility] Co de Phone Number [facility] [place] [address] * POCT Glucose (04/11/2020 12:32 AM EST) POC Glucose 181 65 - 199 mg/dL [facility] Comment: Supplemental ranges: <140 mg/dL before meals <180 mg/dL all other times of the day Blood specimen (specimen) 04/11/2020 12:32 AM EST 04/11/2020 12:32 AM EST Davian Carolina MD POINT OF CARE TEST ORDERABLES Performing Organization Address [facility] Co de Phone Number [facility] [place] [address] * POCT Glucose (04/10/2020 8:55 PM EST) POC Glucose 174 65 - 199 mg/dL [facility] Comment: Supplemental ranges: <140 mg/dL before meals <180 mg/dL all other times of the day Blood specimen (specimen) 04/10/2020 8:55 PM EST 04/10/2020 8:55 PM EST Davian Carolina MD POINT OF CARE TEST ORDERABLES Performing Organization Address City/[facility]/ZIP Co de Phone Number [facility] [place] [address] * POCT Glucose (04/10/2020 5:32 PM EST) POC Glucose 168 65 - 199 mg/dL [facility] Comment: Supplemental ranges: <140 mg/dL before meals <180 mg/dL all other times of the day Blood specimen (specimen) 04/10/2020 5:32 PM EST 04/10/2020 5:32 PM EST Davian Carolina MD POINT OF CARE TEST ORDERABLES Performing Organization Address [facility] Co de Phone Number [facility] [place] [address] * POCT Glucose (04/10/2020 1:22 PM EST) POC Glucose 167 65 - 199 mg/dL [facility] Comment: Supplemental ranges: <140 mg/dL before meals <180 mg/dL all other times of the day Blood specimen (specimen) 04/10/2020 1:22 PM EST 04/10/2020 1:22 PM EST Davian Carolina MD POINT OF CARE TEST ORDERABLES Performing Organization Address [facility] Co de Phone Number [facility] [place] [address] * XR PICC Placement Over 5 Years [...] by: Maria Esther Gaines MD, [facility] ([phone]), at 04/10/2020 12:18 PM Narrative 04/10/2020 12:18 [...] by: Maria Esther Gaines MD, [facility]([phone]), at 04/10/2020 12:18 PM Davian Carolina MD [...] to the planned procedure. Hand Hygiene: The video technician did perform hand hygiene prior to line insertion. Catheter type: PICC Lot number: [id number] Procedure Technique: Skin was prepped with chlorhexidine. [...] (ABNORMAL) POCT Glucose (04/10/2020 8:08 AM EST) [facility] POC Glucose 220(H) 65 - 199 mg/dL [facility] Comment: Supplemental ranges: <140 mg/dL before meals <180 mg/dL all other times of the day Blood specimen (specimen) 04/10/2020 8:08 AM EST 04/10/2020 8:08 AM EST Davian Carolina MD POINT OF CARE TEST ORDERABLES Performing Organization Address City/State/[facility] Co de Phone Number [facility] [place] [address] * (ABNORMAL) Differential, Automated (04/10/2020 3:14 AM EST) Pathologist [facility] Neutrophils % 64.4 % [facility] Neutr Abs (ANC) 8.46(H) 1.70 - 6.10 x10(3)/mc L [facility] Lymphocytes % 14.2 % [facility] Lymphocytes Abs 1.9 0.9 - 3.2 x10(3)/mc L [facility] Monocytes % 9.8 % [facility] Monocyte Abs 1.3(H) 0.3 - 0.9 x10(3)/mc L [facility] Eosinophils % 7.2 % [facility] Eosinophils Abs 0.9(H) 0.0 - 0.4 x10(3)/mc L [facility] Basophils % 0.8 % [facility] Basophils Abs 0.1 0.0 - 0.1 x10(3)/mc L [facility] Immature Gran % 3.60 % [facility] Comment: Immature granulocytes(IG's)percentage and absolute count will include metamyelocytes, myelocytes, and promyelocytes. Blood smears from CBCs yielding IG's will be scanned manually for concordance. If this scan disagrees with the automated IG or if promyelocytes are noted, a manual differential will be performed. Nory Gran Abs 0.47(H) 0.00 - 0.04 x10(3)/[facility] Blood specimen (specimen) 04/10/2020 3:14 AM EST 04/10/2020 3:21 AM EST Narrative Resulting Agency Comment Spec In Lab Anjelica Jordan APRN HEMATOLOGY ORDER MAGAN [facility] [place] [address] * (ABNORMAL) Hemogram (04/10/2020 3:14 AM EST) WBC 13.1(H) 4.0 - 9.5 x10(3)/[facility] RBC 3.17(L) 4.00 - 5.21 x10(6)/[facility] Hemoglobin 9.6(L) 11.7 - 15.5 gm/dL [facility] Hematocrit 28.6(L) 35.7 - 45.8 % [facility] MCV 90.2 82.6 - 94.4 [facility] MCH 30.3 27.1 - 32.0 pg [facility] MCHC 33.6 31.7 - 35.0 gm/dL [facility] Platelets 429(H) 145 - 357 x10(3)/[facility] RDWSD 42.9 37.0 - 46.0 [facility] RDWCV 13.0 11.5 - 14.1 % [facility] MPV 10.2 7.6 - 12.9 [facility] nRBC % Auto 0.0 % [facility] nRBC Abs Auto 0.000 0.000 - 0.000 x10(3)/[facility] Blood specimen (specimen) 04/10/2020 3:14 AM EST 04/10/2020 3:21 AM EST Narrative Resulting Agency Comment Spec In Lab Anjelica Jordan APRN HEMATOLOGY ORDER MAGAN Performing Organization Address [facility] de Phone Number [facility] [place] [address] * Phosphorus (04/10/2020 3:14 AM EST) Phosphorus 3.4 2.5 - 4.5 mg/dL [facility] Blood specimen (specimen) 04/10/2020 3:14 AM EST 04/10/2020 3:21 AM EST Narrative Resulting Agency Comment Spec In Lab Anjelica Jordan APRN CHEMISTRY ORDERA BLES Performing Organization Address [facility] Phone Number [facility] [place] [address] * (ABNORMAL) Magnesium (04/10/2020 3:14 AM EST) Magnesium 0.64(L) 0.69 - 1.07 mmol/L [facility] Blood specimen (specimen) 04/10/2020 3:14 AM EST 04/10/2020 3:21 AM EST Narrative Resulting Agency Comment Spec In Lab Anjelica Jordan APRN CHEMISTRY ORDERA BLES Performing Organization Address [facility] Phone Number [facility] [place] [address] * (ABNORMAL) Basic Metabolic Panel (non-fasting) (04/10/2020 3:14 AM EST) Glucose Lvl 156 65 - 199 mg/dL [facility] Comment:Diabetes: >=200 mg/d L plus symptoms BUN 16 8 - 18 mg/dL [facility] Creatinine 0.35(L) 0.70 - 1.20 mg/dL [facility] Sodium 131(L) 135 - 145 mmol/L [facility] Potassium 3.9 3.5 - 5.0 mmol/L [facility] Comment: Please note: ??Patients with WBC >100,000 may have falsely elevated Potassium levels. ??For accurate Potassium quantification in these patients send serum separator tube (gold top) for subsequent determinations. ??Contact the Clinical Chemistry Laboratory if there are any questions. Chloride 100 98 - 107 mmol/L [facility] CO2 24 22 - 31 mmol/L [facility] Anion Gap 7 5 - 15 mmol/L [facility] Calcium 7.6(L) 8.5 - 10.5 mg/dL [facility] Estimated GFR 108 >=60 mL/min/1. 73 m?? [facility] Comment: This patient? s estimated glomerular [...] Lab Anjelica Jordan APRN CHEMISTRY ORDERA BLES [facility] [place] [address] * POCT Glucose (04/10/2020 3:09 AM EST) POC Glucose 155 65 - 199 mg/dL [facility] Comment: Supplemental ranges: <140 mg/dL before meals <180 mg/dL all other times of the day Blood specimen (specimen) 04/10/2020 3:09 AM EST 04/10/2020 3:09 AM EST Davian Carolina MD POINT OF CARE TEST ORDERABLES Performing Organization Address [facility] de Phone Number [facility] [place] [address] * POCT Glucose (04/10/2020 12:45 AM EST) POC Glucose 179 65 - 199 mg/dL [facility] Comment: Supplemental ranges: <140 mg/dL before meals <180 mg/dL all other times of the day Blood specimen (specimen) 04/10/2020 12:45 AM EST 04/10/2020 12:45 AM EST Davian Carolina MD POINT OF CARE TEST ORDERABLES Performing Organization Address [facility] Phone Number [facility] [place] [address] * POCT Glucose (04/09/2020 8:11 PM EST) POC Glucose 184 65 - 199 mg/dL [facility] Comment: Supplemental ranges: <140 mg/dL before meals <180 mg/dL all other times of the day Blood specimen (specimen) 04/09/2020 8:11 PM EST 04/09/2020 8:11 PM EST Davian Carolina MD POINT OF CARE TEST ORDERABLES Performing Organization Address [facility] de Phone Number [facility] [place] [address] * POCT Glucose (04/09/2020 4:59 PM EST) POC Glucose 167 65 - 199 mg/dL [facility] Comment: Supplemental ranges: <140 mg/dL before meals <180 mg/dL all other times of the day Blood specimen (specimen) 04/09/2020 4:59 PM EST 04/09/2020 4:59 PM EST Davian Carolina MD POINT OF CARE TEST ORDERABLES Performing Organization Address City/[facility]/ZIP Co de Phone Number [facility] [place] [address] * POCT Glucose (04/09/2020 1:16 PM EST) POC Glucose 180 65 - 199 mg/dL [facility] Comment: Supplemental ranges: <140 mg/dL before meals <180 mg/dL all other times of the day Blood specimen (specimen) 04/09/2020 1:16 PM EST 04/09/2020 1:16 PM EST Davian Carolina MD POINT OF CARE TEST ORDERABLES Performing Organization Address [facility] Co de Phone Number [facility] [place] [address] * POCT Glucose (04/09/2020 8:05 AM EST) POC Glucose 181 65 - 199 mg/dL [facility] Comment: Supplemental ranges: <140 mg/dL before meals <180 mg/dL all other times of the day Blood specimen (specimen) 04/09/2020 8:05 AM EST 04/09/2020 8:05 AM EST Davian Carolina MD POINT OF CARE TEST ORDERABLES Performing Organization Address City/[facility] Co de Phone Number [facility] [place] [address] * POCT Glucose (04/09/2020 5:18 AM EST) POC Glucose 145 65 - 199 mg/dL [facility] Comment: Supplemental ranges: <140 mg/dL before meals <180 mg/dL all other times of the day Blood specimen (specimen) 04/09/2020 5:18 AM EST 04/09/2020 5:18 AM EST Davian Carolina MD POINT OF CARE TEST ORDERABLES [facility] [place] [address] * POCT Glucose (04/09/2020 12:52 AM EST) Pathologist [facility] POC Glucose 169 65 - 199 mg/dL [facility] Comment: Supplemental ranges: <140 mg/dL before meals <180 mg/dL all other times of the day Blood specimen (specimen) 04/09/2020 12:52 AM EST 04/09/2020 12:52 AM EST Davian Carolina MD POINT OF [place] [address] * (ABNORMAL) Differential, Automated (04/09/2020 12:30 AM EST) Pathologist [facility] Neutrophils % 62.3 % [facility] Neutr Abs (ANC) 8.42(H) 1.70 - 6.10 x10(3)/mc L [facility] Lymphocytes % 13.7 % [facility] Lymphocytes Abs 1.8 0.9 - 3.2 x10(3)/[facility] Monocytes % 11.0 % [facility] Monocyte Abs 1.5(H) 0.3 - 0.9 x10(3)/ L [facility] Eosinophils % 7.2 % [facility] Eosinophils Abs 1.0(H) 0.0 - 0.4 x10(3)/mc L [facility] Basophils % 0.9 % [facility] Basophils Abs 0.1 0.0 - 0.1 x10(3)/ L [facility] Immature Gran % 4.90 % [facility] Comment: Immature granulocytes(IG's)percentage and absolute count will include metamyelocytes, myelocytes, and promyelocytes. Blood smears from CBCs yielding IG's will be scanned manually for concordance. If this scan disagrees with the automated IG or if promyelocytes are noted, a manual differential will be performed. Nory Gran Abs 0.66(H) 0.00 - 0.04 x10(3)/ L [facility] Blood specimen (specimen) 04/09/2020 12:30 AM EST 04/09/2020 1:16 AM EST Narrative Resulting Agency Comment Spec In Lab Anjelica Jordan APRN HEMATOLOGY ORDER MAGAN [facility] [place] [address] * (ABNORMAL) Hemogram (04/09/2020 12:30 AM EST) WBC 13.5(H) 4.0 - 9.5 x10(3)/[facility] RBC 3.38(L) 4.00 - 5.21 x10(6)/[facility] Hemoglobin 10.1(L) 11.7 - 15.5 gm/dL [facility] Hematocrit 30.4(L) 35.7 - 45.8 % [facility] MCV 89.9 82.6 - 94.4 [facility] MCH 29.9 27.1 - 32.0 pg [facility] MCHC 33.2 31.7 - 35.0 gm/dL [facility] Platelets 426(H) 145 - 357 x10(3)/[facility] RDWSD 43.6 37.0 - 46.0 [facility] RDWCV 13.1 11.5 - 14.1 % [facility] MPV 9.9 7.6 - 12.9 [facility] nRBC % Auto 0.0 % [facility] nRBC Abs Auto 0.000 0.000 - 0.000 x10(3)/[facility] Blood specimen (specimen) 04/09/2020 12:30 AM EST 04/09/2020 1:16 AM EST Narrative Resulting Agency Comment Spec In Lab Anjelica Jordan APRN HEMATOLOGY ORDER MAGAN Performing Organization Address [facility]/ZIP Co de Phone Number [facility] [place] [address] * Phosphorus (04/09/2020 12:30 AM EST) Phosphorus 2.7 2.5 - 4.5 mg/dL [facility] Blood specimen (specimen) 04/09/2020 12:30 AM EST 04/09/2020 1:16 AM EST Narrative Resulting Agency Comment Spec In Lab Anjelica Jordan NUCLEAR STATION OPERATOR CHEMISTRY ORDERA BLES Performing Organization Address [facility] de Phone Number [facility] [place] [address] * Magnesium (04/09/2020 12:30 AM EST) Magnesium 0.78 0.69 - 1.07 mmol/L [facility] Blood specimen (specimen) 04/09/2020 12:30 AM EST 04/09/2020 1:16 AM EST Narrative Resulting Agency Comment Spec In Lab Anjelica Jordan APRN CHEMISTRY ORDERA BLES Performing Organization Address [facility] Co de Phone Number [facility] [place] [address] * (ABNORMAL) Basic Metabolic Panel (non-fasting) (04/09/2020 12:30 AM EST) Glucose Lvl 157 65 - 199 mg/dL [facility] Comment:Diabetes: >=200 mg/d L plus symptoms BUN 15 8 - 18 mg/dL [facility] Creatinine 0.31(L) 0.70 - 1.20 mg/dL [facility] Sodium 133(L) 135 - 145 mmol/L [facility] Potassium 3.9 3.5 - 5.0 mmol/L [facility] Comment: Please note: ??Patients with WBC >100,000 may have falsely elevated Potassium levels. ??For accurate Potassium quantification in these patients send serum separator tube (gold top) for subsequent determinations. ??Contact the Clinical Chemistry Laboratory if there are any questions. Chloride 102 98 - 107 mmol/L [facility] CO2 23 22 - 31 mmol/L [facility] Anion Gap 8 5 - 15 mmol/L [facility] Calcium 7.7(L) 8.5 - 10.5 mg/dL [facility] Estimated GFR 112 >=60 mL/min/1. 73 m?? [facility] Comment: This patient? s estimated glomerular [...] Lab Anjelica Jordan APRN CHEMISTRY ORDERA BLES [facility] [place] [address] * POCT Glucose (04/08/2020 9:03 PM EST) POC Glucose 169 65 - 199 mg/dL [facility] Comment: Supplemental ranges: <140 mg/dL before meals <180 mg/dL all other times of the day Blood specimen (specimen) 04/08/2020 9:03 PM EST 04/08/2020 9:03 PM EST Davian Carolina MD POINT OF CARE TEST ORDERABLES Performing Organization Address [facility] de Phone Number [facility] [place] [address] * C. Difficile Screen (04/08/2020 5:52 PM EST) C Diff Screen Negative Negative [facility] Comment: Ag/Tox Neg C. diff?? [...] - GEN ERAL ORDERABLES Performing Organization Address [facility] Co de Phone Number [facility] [place] [address] * POCT Glucose (04/08/2020 3:42 PM EST) POC Glucose 127 65 - 199 mg/dL [facility] Comment: Supplemental ranges: <140 mg/dL before meals <180 mg/dL all other times of the day Blood specimen (specimen) 04/08/2020 3:42 PM EST 04/08/2020 3:42 PM EST Davian Carolina MD POINT OF CARE TEST ORDERABLES Performing Organization Address [facility] Co de Phone Number [facility] [place] [address] * POCT Glucose (04/08/2020 12:31 PM EST) POC Glucose 167 65 - 199 mg/dL [facility] Comment: Supplemental ranges: <140 mg/dL before meals <180 mg/dL all other times of the day Blood specimen (specimen) 04/08/2020 12:31 PM EST 04/08/2020 12:31 PM EST Davian Carolina MD POINT OF CARE TEST ORDERABLES Performing Organization Address [facility] Co de Phone Number [facility] [place] [address] * POCT Glucose (04/08/2020 7:28 AM EST) POC Glucose 199 65 - 199 mg/dL [facility] Comment: Supplemental ranges: <140 mg/dL before meals <180 mg/dL all other times of the day Blood specimen (specimen) 04/08/2020 7:28 AM EST 04/08/2020 7:28 AM EST Davian Carolina MD POINT OF CARE TEST ORDERABLES Performing Organization Address [facility] de Phone Number [facility] [place] [address] * POCT Glucose (04/08/2020 3:25 AM EST) POC Glucose 146 65 - 199 mg/dL [facility] Comment: Supplemental ranges: <140 mg/dL before meals <180 mg/dL all other times of the day Blood specimen (specimen) 04/08/2020 3:25 AM EST 04/08/2020 3:25 AM EST Davian Carolina MD POINT OF CARE TEST ORDERABLES Performing Organization Address [facility] de Phone Number [facility] [place] [address] * (ABNORMAL) Differential, Automated (04/08/2020 12:30 AM EST) Neutrophils % 69.8 % [facility] Neutr Abs (ANC) 11.23(H) 1.70 - 6.10 x10(3)/mc L [facility] Lymphocytes % 10.5 % [facility] Lymphocytes Abs 1.7 0.9 - 3.2 x10(3)/mc L [facility] Monocytes % 11.2 % [facility] Monocyte Abs 1.8(H) 0.3 - 0.9 x10(3)/[facility] Eosinophils % 4.0 % [facility] Eosinophils Abs 0.6(H) 0.0 - 0.4 x10(3)/[facility] Basophils % 0.6 % [facility] Basophils Abs 0.1 0.0 - 0.1 x10(3)/[facility] Immature Gran % 3.90 % [facility] Comment: Immature granulocytes(IG's)percentage and absolute count will include metamyelocytes, myelocytes, and promyelocytes. Blood smears from CBCs yielding IG's will be scanned manually for concordance. If this scan disagrees with the automated IG or if promyelocytes are noted, a manual differential will be performed. Nory Gran Abs 0.63(H) 0.00 - 0.04 x10(3)/[facility] Blood specimen (specimen) 04/08/2020 12:30 AM EST 04/08/2020 12:38 AM EST Narrative Resulting Agency Comment Spec In Lab Anjelica Jordan APRN HEMATOLOGY ORDER MAGAN Performing Organization Address City/State/[facility] Co de Phone Number [facility] [place] [address] * (ABNORMAL) Hemogram (04/08/2020 12:30 AM EST) WBC 16.1(H) 4.0 - 9.5 x10(3)/[facility] RBC 3.24(L) 4.00 - 5.21 x10(6)/[facility] Hemoglobin 9.8(L) 11.7 - 15.5 gm/dL [facility] Hematocrit 28.6(L) 35.7 - 45.8 % [facility] MCV 88.3 82.6 - 94.4 fL [facility] MCH 30.2 27.1 - 32.0 pg [facility] MCHC 34.3 31.7 - 35.0 gm/dL [facility] Platelets 477(H) 145 - 357 x10(3)/[facility] RDWSD 43.0 37.0 - 46.0 fL [facility] RDWCV 13.2 11.5 - 14.1 % [facility] MPV 10.0 7.6 - 12.9 fL [facility] nRBC % Auto 0.0 % [facility] nRBC Abs Auto 0.000 0.000 - 0.000 x10(3)/[facility] Blood specimen (specimen) 04/08/2020 12:30 AM EST 04/08/2020 12:38 AM EST Narrative Resulting Agency Comment Spec In Lab Anjelica Jordan APRN HEMATOLOGY ORDER MAGAN Performing Organization Address [facility] de Phone Number [facility] [place] [address] * Phosphorus (04/08/2020 12:30 AM EST) Phosphorus 3.1 2.5 - 4.5 mg/dL [facility] Blood specimen (specimen) 04/08/2020 12:30 AM EST 04/08/2020 12:38 AM EST Narrative Resulting Agency Comment Spec In Lab Anjelica Jordan NUCLEAR STATION OPERATOR CHEMISTRY ORDERA BLES Performing Organization Address [facility] Co de Phone Number [facility] [place] [address] * Magnesium (04/08/2020 12:30 AM EST) Magnesium 0.69 0.69 - 1.07 mmol/L [facility] Blood specimen (specimen) 04/08/2020 12:30 AM EST 04/08/2020 12:38 AM EST Narrative Resulting Agency Comment Spec In Lab Anjelica Jordan NUCLEAR STATION OPERATOR CHEMISTRY ORDERA BLES [facility] [place] [address] * (ABNORMAL) Basic Metabolic Panel (non-fasting) (04/08/2020 12:30 AM EST) Glucose Lvl 147 65 - 199 mg/dL [facility] Comment:Diabetes: >=200 mg/d L plus symptoms BUN 15 8 - 18 mg/dL [facility] Creatinine 0.29(L) 0.70 - 1.20 mg/dL [facility] Sodium 132(L) 135 - 145 mmol/L [facility] Potassium 3.5 3.5 - 5.0 mmol/L [facility] Comment: Please note: ??Patients with WBC >100,000 may have falsely elevated Potassium levels. ??For accurate Potassium quantification in these patients send serum separator tube (gold top) for subsequent determinations. ??Contact the Clinical Chemistry Laboratory if there are any questions. Chloride 101 98 - 107 mmol/L [facility] CO2 24 22 - 31 mmol/L [facility] Anion Gap 7 5 - 15 mmol/L [facility] Calcium 7.7(L) 8.5 - 10.5 mg/dL [facility] Estimated GFR 115 >=60 mL/min/1. 73 m?? [facility] Comment: This patient? s estimated glomerular [...] APRN CHEMISTRY ORDERA BLES Performing Organization Address [facility] Co de Phone Number [facility] [place] [address] * POCT Glucose (04/08/2020 12:06 AM EST) POC Glucose 152 65 - 199 mg/dL [facility] Comment: Supplemental ranges: <140 mg/dL before meals <180 mg/dL all other times of the day Blood specimen (specimen) 04/08/2020 12:06 AM EST 04/08/2020 12:06 AM EST Davian Carolina MD POINT OF CARE TEST ORDERABLES Performing Organization Address [facility] de Phone Number [facility] [place] [address] * POCT Glucose (04/07/2020 7:42 PM EST) POC Glucose 137 65 - 199 mg/dL [facility] Comment: Supplemental ranges: <140 mg/dL before meals <180 mg/dL all other times of the day Blood specimen (specimen) 04/07/2020 7:42 PM EST 04/07/2020 7:42 PM EST Davian Carolina MD POINT OF CARE TEST ORDERABLES Performing Organization Address [facility] Co de Phone Number [facility] [place] [address] * POCT Glucose (04/07/2020 3:46 PM EST) POC Glucose 148 65 - 199 mg/dL [facility] Comment: Supplemental ranges: <140 mg/dL before meals <180 mg/dL all other times of the day Blood specimen (specimen) 04/07/2020 3:46 PM EST 04/07/2020 3:46 PM EST Davian Carolina MD POINT OF CARE TEST ORDERABLES Performing Organization Address [facility] Co de Phone Number [facility] [place] [address] * POCT Glucose (04/07/2020 11:18 AM EST) POC Glucose 154 65 - 199 mg/dL [facility] Comment: Supplemental ranges: <140 mg/dL before meals <180 mg/dL all other times of the day Blood specimen (specimen) 04/07/2020 11:18 AM EST 04/07/2020 11:18 AM EST Davian Carolina MD POINT OF CARE TEST ORDERABLES Performing Organization Address [facility] Co de Phone Number [facility] [place] [address] * POCT Glucose (04/07/2020 7:32 AM EST) Pathologist [facility] POC Glucose 138 65 - 199 mg/dL [facility] Comment: Supplemental ranges: <140 mg/dL before meals <180 mg/dL all other times of the day Blood specimen (specimen) 04/07/2020 7:32 AM EST 04/07/2020 7:32 AM EST Davian Carolina MD POINT OF CARE TEST ORDERABLES Performing Organization Address [facility] Co de Phone Number [facility] [place] [address] * (ABNORMAL) Differential, Automated (04/07/2020 3:50 AM EST) Neutrophils % 66.9 % [facility] Neutr Abs (ANC) 9.01(H) 1.70 - 6.10 x10(3)/mc L [facility] Lymphocytes % 10.8 % [facility] Lymphocytes Abs 1.5 0.9 - 3.2 x10(3)/mc L [facility] Monocytes % 12.5 % [facility] Monocyte Abs 1.7(H) 0.3 - 0.9 x10(3)/mc L [facility] Eosinophils % 4.8 % [facility] Eosinophils Abs 0.6(H) 0.0 - 0.4 x10(3)/[facility] Basophils % 0.9 % [facility] Basophils Abs 0.1 0.0 - 0.1 x10(3)/[facility] Immature Gran % 4.10 % [facility] Comment: Immature granulocytes(IG's)percentage and absolute count will include metamyelocytes, myelocytes, and promyelocytes. Blood smears from CBCs yielding IG's will be scanned manually for concordance. If this scan disagrees with the automated IG or if promyelocytes are noted, a manual differential will be performed. Nory Gran Abs 0.55(H) 0.00 - 0.04 x10(3)/[facility] Blood specimen (specimen) 04/07/2020 3:50 AM EST 04/07/2020 4:01 AM EST Narrative Resulting Agency Comment Spec In Lab Anjelica Jordan APRN HEMATOLOGY ORDER MAGAN [facility] [place] [address] * (ABNORMAL) Hemogram (04/07/2020 3:50 AM EST) WBC 13.5(H) 4.0 - 9.5 x10(3)/[facility] RBC 3.14(L) 4.00 - 5.21 x10(6)/[facility] Hemoglobin 9.6(L) 11.7 - 15.5 gm/dL [facility] Hematocrit 28.1(L) 35.7 - 45.8 % [facility] MCV 89.5 82.6 - 94.4 fL [facility] MCH 30.6 27.1 - 32.0 pg [facility] MCHC 34.2 31.7 - 35.0 gm/dL [facility] Platelets 453(H) 145 - 357 x10(3)/[facility] RDWSD 44.5 37.0 - 46.0 fL [facility] RDWCV 13.5 11.5 - 14.1 % [facility] MPV 9.7 7.6 - 12.9 fL [facility] nRBC % Auto 0.0 % [facility] nRBC Abs Auto 0.000 0.000 - 0.000 x10(3)/[facility] Blood specimen (specimen) 04/07/2020 3:50 AM EST 04/07/2020 4:01 AM EST Narrative Resulting Agency Comment Spec In Lab Anjelica Jordan APRN HEMATOLOGY ORDER MAGAN Performing Organization Address [facility] de Phone Number [facility] [place] [address] * Phosphorus (04/07/2020 3:50 AM EST) Phosphorus 3.3 2.5 - 4.5 mg/dL [facility] Blood specimen (specimen) 04/07/2020 3:50 AM EST 04/07/2020 4:01 AM EST Narrative Resulting Agency Comment Spec In Lab Anjelica Jordan APRN CHEMISTRY ORDERA BLES Performing Organization Address [facility] Co de Phone Number [facility] [place] [address] * Magnesium (04/07/2020 3:50 AM EST) Magnesium 0.82 0.69 - 1.07 mmol/L [facility] Blood specimen (specimen) 04/07/2020 3:50 AM EST 04/07/2020 4:01 AM EST Narrative Resulting Agency Comment Spec In Lab Anjelica Jordan NUCLEAR STATION OPERATOR CHEMISTRY ORDERA BLES [facility] [place] [address] * (ABNORMAL) Basic Metabolic Panel (non-fasting) (04/07/2020 3:50 AM EST) Glucose Lvl 166 65 - 199 mg/dL [facility] Comment:Diabetes: >=200 mg/d L plus symptoms BUN 16 8 - 18 mg/dL [facility] Creatinine 0.34(L) 0.70 - 1.20 mg/dL [facility] Sodium 134(L) 135 - 145 mmol/L [facility] Potassium 3.6 3.5 - 5.0 mmol/L [facility] Comment: Please note: ??Patients with WBC >100,000 may have falsely elevated Potassium levels. ??For accurate Potassium quantification in these patients send serum separator tube (gold top) for subsequent determinations. ??Contact the Clinical Chemistry Laboratory if there are any questions. Chloride 101 98 - 107 mmol/L [facility] CO2 24 22 - 31 mmol/L [facility] Anion Gap 9 5 - 15 mmol/L [facility] Calcium 7.7(L) 8.5 - 10.5 mg/dL [facility] Estimated GFR 109 >=60 mL/min/1. 73 m?? [facility] Comment: This patient? s estimated glomerular [...] APRN CHEMISTRY ORDERA BLES Performing Organization Address [facility] Co de Phone Number [facility] [place] [address] * POCT Glucose (04/07/2020 3:41 AM EST) POC Glucose 160 65 - 199 mg/dL [facility] Comment: Supplemental ranges: <140 mg/dL before meals <180 mg/dL all other times of the day Blood specimen (specimen) 04/07/2020 3:41 AM EST 04/07/2020 3:41 AM EST Davian Carolina MD POINT OF CARE TEST ORDERABLES Performing Organization Address [facility] Co de Phone Number [facility] [place] [address] * POCT Glucose (04/06/2020 11:51 PM EST) POC Glucose 159 65 - 199 mg/dL [facility] Comment: Supplemental ranges: <140 mg/dL before meals <180 mg/dL all other times of the day Blood specimen (specimen) 04/06/2020 11:51 PM EST 04/06/2020 11:51 PM EST Davian Carolina MD POINT OF CARE TEST ORDERABLES Performing Organization Address [facility] Co de Phone Number [facility] [place] [address] * POCT Glucose (04/06/2020 8:06 PM EST) POC Glucose 145 65 - 199 mg/dL [facility] Comment: Supplemental ranges: <140 mg/dL before meals <180 mg/dL all other times of the day Blood specimen (specimen) 04/06/2020 8:06 PM EST 04/06/2020 8:06 PM EST Davian Carolina MD POINT OF CARE TEST ORDERABLES Performing Organization Address City/[facility]/ZIP Co de Phone Number [facility] [place] [address] * POCT Glucose (04/06/2020 4:02 PM EST) POC Glucose 177 65 - 199 mg/dL [facility] Comment: Supplemental ranges: <140 mg/dL before meals <180 mg/dL all other times of the day Blood specimen (specimen) 04/06/2020 4:02 PM EST 04/06/2020 4:02 PM EST Davian Carolina MD POINT OF CARE TEST ORDERABLES Performing Organization Address [facility] Co de Phone Number [facility] [place] [address] * POCT Glucose (04/06/2020 12:12 PM EST) POC Glucose 156 65 - 199 mg/dL [facility] Comment: Supplemental ranges: <140 mg/dL before meals <180 mg/dL all other times of the day Blood specimen (specimen) 04/06/2020 12:12 PM EST 04/06/2020 12:12 PM EST Davian Carolina MD POINT OF CARE TEST ORDERABLES Performing Organization Address [facility] Co de Phone Number [facility] [place] [address] * POCT Glucose (04/06/2020 7:50 AM EST) POC Glucose 170 65 - 199 mg/dL [facility] Comment: Supplemental ranges: <140 mg/dL before meals <180 mg/dL all other times of the day Blood specimen (specimen) 04/06/2020 7:50 AM EST 04/06/2020 7:50 AM EST Davian Carolina MD POINT OF CARE TEST ORDERABLES Performing Organization Address City/[facility]/ZIP Co de Phone Number [facility] [place] [address] * POCT Glucose (04/06/2020 4:43 AM EST) POC Glucose 198 65 - 199 mg/dL [facility] Comment: Supplemental ranges: <140 mg/dL before meals <180 mg/dL all other times of the day Blood specimen (specimen) 04/06/2020 4:43 AM EST 04/06/2020 4:43 AM EST Davian Carolina MD POINT OF CARE TEST ORDERABLES [facility] [place] [address] * (ABNORMAL) Differential, Automated (04/06/2020 1:30 AM EST) Pathologist [facility] Neutrophils % 77.8 % [facility] Neutr Abs (ANC) 12.95(H) 1.70 - 6.10 x10(3)/ L [facility] Lymphocytes % 6.2 % [facility] Lymphocytes Abs 1.0 0.9 - 3.2 x10(3)/[facility] Monocytes % 9.8 % [facility] Monocyte Abs 1.6(H) 0.3 - 0.9 x10(3)/[facility] Eosinophils % 0.8 % [facility] Eosinophils Abs 0.1 0.0 - 0.4 x10(3)/[facility] Basophils % 0.5 % [facility] Basophils Abs 0.1 0.0 - 0.1 x10(3)/ L [facility] Immature Gran % 4.90 % [facility] Comment: Immature granulocytes(IG's)percentage and absolute count will include metamyelocytes, myelocytes, and promyelocytes. Blood smears from CBCs yielding IG's will be scanned manually for concordance. If this scan disagrees with the automated IG or if promyelocytes are noted, a manual differential will be performed. Nory Gran Abs 0.81(H) 0.00 - 0.04 x10(3)/mc L [facility] Blood specimen (specimen) 04/06/2020 1:30 AM EST 04/06/2020 1:40 AM EST Narrative Resulting Agency Comment Spec In Lab Anjelica Jordan APRN HEMATOLOGY ORDER MAGAN [facility] [place] [address] * (ABNORMAL) Hemogram (04/06/2020 1:30 AM EST) WBC 16.7(H) 4.0 - 9.5 x10(3)/[facility] RBC 3.04(L) 4.00 - 5.21 x10(6)/[facility] Hemoglobin 9.2(L) 11.7 - 15.5 gm/dL [facility] Hematocrit 27.3(L) 35.7 - 45.8 % [facility] MCV 89.8 82.6 - 94.4 fL [facility] MCH 30.3 27.1 - 32.0 pg [facility] MCHC 33.7 31.7 - 35.0 gm/dL [facility] Platelets 445(H) 145 - 357 x10(3)/[facility] RDWSD 43.9 37.0 - 46.0 [facility] RDWCV 13.2 11.5 - 14.1 % [facility] MPV 9.9 7.6 - 12.9 [facility] nRBC % Auto 0.0 % [facility] nRBC Abs Auto 0.000 0.000 - 0.000 x10(3)/[facility] Blood specimen (specimen) 04/06/2020 1:30 AM EST 04/06/2020 1:40 AM EST Narrative Resulting Agency Comment Spec In Lab Anjelica Jordan APRN HEMATOLOGY ORDER MAGAN Performing Organization Address [facility] Co de Phone Number [facility] [place] [address] * Phosphorus (04/06/2020 1:30 AM EST) Pathologist [facility] Phosphorus 3.3 2.5 - 4.5 mg/dL [facility] Blood specimen (specimen) 04/06/2020 1:30 AM EST 04/06/2020 1:40 AM EST Narrative Resulting Agency Comment Spec In Lab Anjelica Jordan NUCLEAR STATION OPERATOR CHEMISTRY ORDERA BLES Performing Organization Address [facility] de Phone Number [facility] [place] [address] * Magnesium (04/06/2020 1:30 AM EST) [facility] Magnesium 0.88 0.69 - 1.07 mmol/L [facility] Blood specimen (specimen) 04/06/2020 1:30 AM EST 04/06/2020 1:40 AM EST Narrative Resulting Agency Comment Spec In Lab Anjelica Jordan NUCLEAR STATION OPERATOR CHEMISTRY ORDERA BLES Performing Organization Address [facility] Co de Phone Number [facility] [place] [address] * (ABNORMAL) Basic Metabolic Panel (non-fasting) (04/06/2020 1:30 AM EST) Pathologist [facility] [place] Glucose Lvl 180 65 - 199 mg/dL [facility] Comment:Diabetes: >=200 mg/d L plus symptoms BUN 16 8 - 18 mg/dL [facility] Creatinine 0.42(L) 0.70 - 1.20 mg/dL [facility] Sodium 137 135 - 145 mmol/L [facility] Potassium 3.6 3.5 - 5.0 mmol/L [facility] Comment: Please note: ??Patients with WBC >100,000 may have falsely elevated Potassium levels. ??For accurate Potassium quantification in these patients send serum separator tube (gold top) for subsequent determinations. ??Contact the Clinical Chemistry Laboratory if there are any questions. Chloride 102 98 - 107 mmol/L [facility] CO2 26 22 - 31 mmol/L [facility] Anion Gap 9 5 - 15 mmol/L [facility] Calcium 7.7(L) 8.5 - 10.5 mg/dL [facility] Estimated GFR 102 >=60 mL/min/1. 73 m?? [facility] Comment: This patient? s estimated glomerular [...] Narrative Resulting Agency Comment Spec In Lab Anjleica Jordan APRN CHEMISTRY ORDERA BLES [facility] [place] [address] * POCT Glucose (04/05/2020 11:23 PM EST) POC Glucose 186 65 - 199 mg/dL [facility] Comment: Supplemental ranges: <140 mg/dL before meals <180 mg/dL all other times of the day Blood specimen (specimen) 04/05/2020 11:23 PM EST 04/05/2020 11:23 PM EST Davian Carolina MD POINT OF CARE TEST ORDERABLES [facility] [place] [address] * POCT Glucose (04/05/2020 8:03 PM EST) POC Glucose 150 65 - 199 mg/dL [facility] Comment: Supplemental ranges: <140 mg/dL before meals <180 mg/dL all other times of the day Blood specimen (specimen) 04/05/2020 8:03 PM EST 04/05/2020 8:03 PM EST Davian Carolina MD POINT OF CARE TEST ORDERABLES Performing Organization Address [facility]/ZIP Co de Phone Number [facility] [place] [address] * POCT Glucose (04/05/2020 4:11 PM EST) POC Glucose 171 65 - 199 mg/dL [facility] Comment: Supplemental ranges: <140 mg/dL before meals <180 mg/dL all other times of the day Blood specimen (specimen) 04/05/2020 4:11 PM EST 04/05/2020 4:11 PM EST Davian Carolina MD POINT OF CARE TEST ORDERABLES Performing Organization Address [facility] Co de Phone Number [facility] [place] [address] * XR Chest PA & Lateral (Generic) [...] signed by: Ayan Caballero MD, [facility] ([phone]), at 04/05/2020 3:28 PM Narrative 04/05/2020 3:28 [...] during NG placement with persistent leukocyotosis and [id number] TECHNIQUE: PA and lateral views of the [...] signed by: Ayan Caballero MD, [facility]([phone]), at 04/05/2020 3:28 PM Davian Carolina MD IMG DX ORDERABLES * (ABNORMAL) POCT Glucose (04/05/2020 11:36 AM EST) POC Glucose 202(H) 65 - 199 mg/dL [facility] Comment: Supplemental ranges: <140 mg/dL before meals <180 mg/dL all other times of the day Blood specimen (specimen) 04/05/2020 11:36 AM EST 04/05/2020 11:36 AM EST Davian Carolina MD POINT OF CARE TEST ORDERABLES [facility] [place] [address] * POCT Glucose (04/05/2020 8:06 AM EST) POC Glucose 168 65 - 199 mg/dL [facility] Comment: Supplemental ranges: <140 mg/dL before meals <180 mg/dL all other times of the day Blood specimen (specimen) 04/05/2020 8:06 AM EST 04/05/2020 8:06 AM EST Davian Carolina MD POINT OF CARE TEST ORDERABLES Performing Organization Address [facility] Co de Phone Number [facility] [place] [address] * POCT Glucose (04/05/2020 4:03 AM EST) Pathologist [facility] [place] POC Glucose 167 65 - 199 mg/dL [facility] Comment: Supplemental ranges: <140 mg/dL before meals <180 mg/dL all other times of the day Blood specimen (specimen) 04/05/2020 4:03 AM EST 04/05/2020 4:03 AM EST Davian Carolina MD POINT OF CARE TEST ORDERABLES Performing Organization Address [facility] de Phone Number [facility] [place] [address] * Scan, Peripheral Blood (04/05/2020 1:10 AM EST) Pathologist [facility] Plat Estimate Increased [facility] RBC Morphology Normal [facility] Dohle Bodies Present [facility] Blood specimen (specimen) 04/05/2020 1:10 AM EST 04/05/2020 1:25 AM EST Narrative Resulting Agency Comment Spec In Lab Anjelica Jordan APRN HEMATOLOGY ORDER MAGAN Performing Organization Address [facility] Co de Phone Number [facility] [place] [address] * (ABNORMAL) Differential, Automated (04/05/2020 1:10 AM EST) Pathologist [facility] Neutrophils % 81.7 % [facility] Neutr Abs (ANC) 17.48(H) 1.70 - 6.10 x10(3)/mc L [facility] Lymphocytes % 6.8 % [facility] Lymphocytes Abs 1.4 0.9 - 3.2 x10(3)/mc L [facility] Monocytes % 7.2 % [facility] Monocyte Abs 1.5(H) 0.3 - 0.9 x10(3)/[facility] Eosinophils % 0.7 % [facility] Eosinophils Abs 0.2 0.0 - 0.4 x10(3)/[facility] Basophils % 0.5 % [facility] Basophils Abs 0.1 0.0 - 0.1 x10(3)/[facility] Immature Gran % 3.10 % [facility] Comment: Immature granulocytes(IG's)percentage and absolute count will include metamyelocytes, myelocytes, and promyelocytes. Blood smears from CBCs yielding IG's will be scanned manually for concordance. If this scan disagrees with the automated IG or if promyelocytes are noted, a manual differential will be performed. Nory Gran Abs 0.67(H) 0.00 - 0.04 x10(3)/[facility] Blood specimen (specimen) 04/05/2020 1:10 AM EST 04/05/2020 1:25 AM EST Narrative Resulting Agency Comment Spec In Lab Anjelica Jordan APRN HEMATOLOGY ORDER MAGAN [facility] [place] [address] * (ABNORMAL) Hemogram (04/05/2020 1:10 AM EST) WBC 21.4(H) 4.0 - 9.5 x10(3)/[facility] RBC 3.33(L) 4.00 - 5.21 x10(6)/[facility] Hemoglobin 9.9(L) 11.7 - 15.5 gm/dL [facility] Hematocrit 30.0(L) 35.7 - 45.8 % [facility] MCV 90.1 82.6 - 94.4 fL [facility] MCH 29.7 27.1 - 32.0 pg [facility] MCHC 33.0 31.7 - 35.0 gm/dL [facility] Platelets 444(H) 145 - 357 x10(3)/[facility] RDWSD 42.1 37.0 - 46.0 fL [facility] RDWCV 12.7 11.5 - 14.1 % [facility] MPV 10.0 7.6 - 12.9 fL [facility] nRBC % Auto 0.0 % [facility] nRBC Abs Auto 0.000 0.000 - 0.000 x10(3)/[facility] Blood specimen (specimen) 04/05/2020 1:10 AM EST 04/05/2020 1:25 AM EST Narrative Resulting Agency Comment Spec In Lab Anjelica Jordan APRN HEMATOLOGY ORDER MAGAN Performing Organization Address [facility] Co de Phone Number [facility] [place] [address] * Phosphorus (04/05/2020 1:10 AM EST) Phosphorus 2.9 2.5 - 4.5 mg/dL [facility] Blood specimen (specimen) 04/05/2020 1:10 AM EST 04/05/2020 1:25 AM EST Narrative Resulting Agency Comment Spec In Lab Anjelica Jordan APRN CHEMISTRY ORDERA BLES Performing Organization Address City/[facility]/ZIP Co de Phone Number [facility] [place] [address] * Magnesium (04/05/2020 1:10 AM EST) Magnesium 0.82 0.69 - 1.07 mmol/L [facility] Blood specimen (specimen) 04/05/2020 1:10 AM EST 04/05/2020 1:25 AM EST Narrative Resulting Agency Comment Spec In Lab Anejlica Jordan JESUS ALBERTO CHEMISTRY ORDERA BLES [facility] [place] [address] * (ABNORMAL) Basic Metabolic Panel (non-fasting) (04/05/2020 1:10 AM EST) Glucose Lvl 175 65 - 199 mg/dL [facility] Comment:Diabetes: >=200 mg/d L plus symptoms BUN 11 8 - 18 mg/dL [facility] Creatinine 0.36(L) 0.70 - 1.20 mg/dL [facility] Sodium 134(L) 135 - 145 mmol/L [facility] Potassium 3.4(L) 3.5 - 5.0 mmol/L [facility] Comment: Please note: ??Patients with WBC >100,000 may have falsely elevated Potassium levels. ??For accurate Potassium quantification in these patients send serum separator tube (gold top) for subsequent determinations. ??Contact the Clinical Chemistry Laboratory if there are any questions. Chloride 101 98 - 107 mmol/L [facility] CO2 26 22 - 31 mmol/L [facility] Anion Gap 7 5 - 15 mmol/L [facility] Calcium 8.0(L) 8.5 - 10.5 mg/dL [facility] Estimated GFR 107 >=60 mL/min/1. 73 m?? [facility] Comment: This patient? s estimated glomerular [...] APRN CHEMISTRY ORDERA BLES Performing Organization Address [facility] Co de Phone Number [facility] [place] [address] * POCT Glucose (04/05/2020 1:09 AM EST) POC Glucose 172 65 - 199 mg/dL [facility] Comment: Supplemental ranges: <140 mg/dL before meals <180 mg/dL all other times of the day Blood specimen (specimen) 04/05/2020 1:09 AM EST 04/05/2020 1:09 AM EST Davian Carolina MD POINT OF CARE TEST ORDERABLES Performing Organization Address [facility] Co de Phone Number [facility] [place] [address] * POCT Glucose (04/04/2020 10:11 PM EST) POC Glucose 197 65 - 199 mg/dL [facility] Comment: Supplemental ranges: <140 mg/dL before meals <180 mg/dL all other times of the day Blood specimen (specimen) 04/04/2020 10:11 PM EST 04/04/2020 10:11 PM EST Davian Carolina MD POINT OF CARE TEST ORDERABLES Performing Organization Address [facility] Co de Phone Number [facility] [place] [address] * POCT Glucose (04/04/2020 8:22 PM EST) POC Glucose 191 65 - 199 mg/dL [facility] Comment: Supplemental ranges: <140 mg/dL before meals <180 mg/dL all other times of the day Blood specimen (specimen) 04/04/2020 8:22 PM EST 04/04/2020 8:22 PM EST Davian Carolina MD POINT OF CARE TEST ORDERABLES Performing Organization Address [facility] Phone Number [facility] [place] [address] * POCT Glucose (04/04/2020 4:36 PM EST) POC Glucose 190 65 - 199 mg/dL [facility] Comment: Supplemental ranges: <140 mg/dL before meals <180 mg/dL all other times of the day Blood specimen (specimen) 04/04/2020 4:36 PM EST 04/04/2020 4:36 PM EST Davian Carolina MD POINT OF CARE TEST ORDERABLES Performing Organization Address [facility] de Phone Number [facility] [place] [address] * POCT Glucose (04/04/2020 11:52 AM EST) POC Glucose 178 65 - 199 mg/dL [facility] Comment: Supplemental ranges: <140 mg/dL before meals <180 mg/dL all other times of the day Blood specimen (specimen) 04/04/2020 11:52 AM EST 04/04/2020 11:52 AM EST Davian Carolina MD POINT OF CARE TEST ORDERABLES Performing Organization Address [facility] de Phone Number [facility] [place] [address] * (ABNORMAL) POCT Glucose (04/04/2020 7:38 AM EST) POC Glucose 220(H) 65 - 199 mg/dL [facility] Comment: Supplemental ranges: <140 mg/dL before meals <180 mg/dL all other times of the day Blood specimen (specimen) 04/04/2020 7:38 AM EST 04/04/2020 7:38 AM EST Davian Carolina MD POINT OF CARE TEST ORDERABLES Performing Organization Address City/[facility]/ZIP Co de Phone Number [facility] [place] [address] * (ABNORMAL) POCT Glucose (04/04/2020 5:20 AM EST) POC Glucose 203(H) 65 - 199 mg/dL [facility] Comment: Supplemental ranges: <140 mg/dL before meals <180 mg/dL all other times of the day Blood specimen (specimen) 04/04/2020 5:20 AM EST 04/04/2020 5:20 AM EST Davian Carolina MD POINT OF CARE TEST ORDERABLES Performing Organization Address [facility] Co de Phone Number [facility] [place] [address] * POCT Glucose (04/04/2020 5:19 AM EST) [facility] POC Glucose 198 65 - 199 mg/dL [facility] Comment: Supplemental ranges: <140 mg/dL before meals <180 mg/dL all other times of the day Blood specimen (specimen) 04/04/2020 5:19 AM EST 04/04/2020 5:19 AM EST Davian Carolina MD POINT OF CARE TEST ORDERABLES Performing Organization Address City/[facility]/ZIP Co de Phone Number [facility] [place] [address] * (ABNORMAL) Differential, Automated (04/04/2020 3:26 AM EST) Neutrophils % 86.3 % [facility] Neutr Abs (ANC) 17.68(H) 1.70 - 6.10 x10(3)/mc L [facility] Lymphocytes % 4.5 % [facility] Lymphocytes Abs 0.9 0.9 - 3.2 x10(3)/mc L [facility] Monocytes % 6.0 % [facility] Monocyte Abs 1.2(H) 0.3 - 0.9 x10(3)/[facility] Eosinophils % 1.5 % [facility] Eosinophils Abs 0.3 0.0 - 0.4 x10(3)/[facility] Basophils % 0.3 % [facility] Basophils Abs 0.1 0.0 - 0.1 x10(3)/[facility] Immature Gran % 1.40 % [facility] Comment: Immature granulocytes(IG's)percentage and absolute count will include metamyelocytes, myelocytes, and promyelocytes. Blood smears from CBCs yielding IG's will be scanned manually for concordance. If this scan disagrees with the automated IG or if promyelocytes are noted, a manual differential will be performed. Nory Gran Abs 0.29(H) 0.00 - 0.04 x10(3)/[facility] Blood specimen (specimen) 04/04/2020 3:26 AM EST 04/04/2020 3:32 AM EST Narrative Resulting Agency Comment Spec In Lab Anjelica Jordan APRN HEMATOLOGY ORDER MAGAN [facility] [place] [address] * (ABNORMAL) Hemogram (04/04/2020 3:26 AM EST) WBC 20.5(H) 4.0 - 9.5 x10(3)/[facility] RBC 3.01(L) 4.00 - 5.21 x10(6)/[facility] Hemoglobin 9.1(L) 11.7 - 15.5 gm/dL [facility] Hematocrit 27.1(L) 35.7 - 45.8 % [facility] MCV 90.0 82.6 - 94.4 fL [facility] MCH 30.2 27.1 - 32.0 pg [facility] MCHC 33.6 31.7 - 35.0 gm/dL [facility] Platelets 367(H) 145 - 357 x10(3)/[facility] RDWSD 42.0 37.0 - 46.0 [facility] RDWCV 12.6 11.5 - 14.1 % [facility] MPV 9.6 7.6 - 12.9 fL [facility] nRBC % Auto 0.0 % [facility] nRBC Abs Auto 0.000 0.000 - 0.000 x10(3)/[facility] Blood specimen (specimen) 04/04/2020 3:26 AM EST 04/04/2020 3:32 AM EST Narrative Resulting Agency Comment Spec In Lab Anjelica Jordan APRN HEMATOLOGY ORDER MAGAN Performing Organization Address City/[facility]/ZIP Co de Phone Number [facility] [place] [address] * (ABNORMAL) Phosphorus (04/04/2020 3:26 AM EST) Phosphorus 2.4(L) 2.5 - 4.5 mg/dL [facility] Blood specimen (specimen) 04/04/2020 3:26 AM EST 04/04/2020 3:32 AM EST Narrative Resulting Agency Comment Spec In Lab Anjelica Jordan APRN CHEMISTRY ORDERA BLES Performing Organization Address City/[facility]/ZIP Co de Phone Number [facility] [place] [address] * Magnesium (04/04/2020 3:26 AM EST) Magnesium 0.84 0.69 - 1.07 mmol/L [facility] Blood specimen (specimen) 04/04/2020 3:26 AM EST 04/04/2020 3:32 AM EST Narrative Resulting Agency Comment Spec In Lab Anjelica Jordan APRN CHEMISTRY ORDERA GEE [facility] [place] [address] * (ABNORMAL) Basic Metabolic Panel (non-fasting) (04/04/2020 3:26 AM EST) Glucose Lvl 181 65 - 199 mg/dL [facility] Comment:Diabetes: >=200 mg/d L plus symptoms BUN 13 8 - 18 mg/dL [facility] Creatinine 0.34(L) 0.70 - 1.20 mg/dL [facility] Sodium 134(L) 135 - 145 mmol/L [facility] Potassium 3.3(L) 3.5 - 5.0 mmol/L [facility] Comment: Please note: ??Patients with WBC >100,000 may have falsely elevated Potassium levels. ??For accurate Potassium quantification in these patients send serum separator tube (gold top) for subsequent determinations. ??Contact the Clinical Chemistry Laboratory if there are any questions. Chloride 101 98 - 107 mmol/L [facility] CO2 28 22 - 31 mmol/L [facility] Anion Gap 5 5 - 15 mmol/L [facility] Calcium 7.8(L) 8.5 - 10.5 mg/dL [facility] Estimated GFR 109 >=60 mL/min/1. 73 m?? [facility] Comment: This patient? s estimated glomerular [...] APRN CHEMISTRY ORDERA BLES Performing Organization Address [facility] de Phone Number [facility] [place] [address] * POCT Glucose (04/04/2020 3:18 AM EST) POC Glucose 172 65 - 199 mg/dL [facility] Comment: Supplemental ranges: <140 mg/dL before meals <180 mg/dL all other times of the day Blood specimen (specimen) 04/04/2020 3:18 AM EST 04/04/2020 3:18 AM EST Davian Carolina MD POINT OF CARE TEST ORDERABLES Performing Organization Address [facility] Phone Number [facility] [place] [address] * POCT Glucose (04/04/2020 12:50 AM EST) POC Glucose 145 65 - 199 mg/dL [facility] Comment: Supplemental ranges: <140 mg/dL before meals <180 mg/dL all other times of the day Blood specimen (specimen) 04/04/2020 12:50 AM EST 04/04/2020 12:50 AM EST Davian Carolina MD POINT OF CARE TEST ORDERABLES Performing Organization Address [facility] de Phone Number [facility] [place] [address] * POCT Glucose (04/03/2020 9:25 PM EST) POC Glucose 173 65 - 199 mg/dL [facility] Comment: Supplemental ranges: <140 mg/dL before meals <180 mg/dL all other times of the day Blood specimen (specimen) 04/03/2020 9:25 PM EST 04/03/2020 9:25 PM EST Davian Carolina MD POINT OF CARE TEST ORDERABLES Performing Organization Address City/[facility]/ZIP Co de Phone Number [facility] [place] [address] * POCT Glucose (04/03/2020 4:19 PM EST) POC Glucose 197 65 - 199 mg/dL [facility] Comment: Supplemental ranges: <140 mg/dL before meals <180 mg/dL all other times of the day Blood specimen (specimen) 04/03/2020 4:19 PM EST 04/03/2020 4:19 PM EST Davian Carolina MD POINT OF CARE TEST ORDERABLES Performing Organization Address [facility] Co de Phone Number [facility] [place] [address] * (ABNORMAL) Urinalysis Microscopic Exam (04/03/2020 2:22 PM EST) Pathologist [facility] RBC UA 12(H) 0 - 4 /HPF [facility] WBC UA 6(H) 0 - 5 /HPF [facility] Squam Epith UA 5(H) <=4 /HPF [facility] Trans Epith UA <1 <=1 /HPF [facility] Hyaline Cast UA <1 0 - 2 /LPF [facility] Urine specimen (specimen) 04/03/2020 2:22 PM EST 04/03/2020 2:54 PM EST Narrative Resulting Agency Comment Spec In Lab Anjelica Jordan APRN URINE ORDERABLES Performing Organization Address City/[facility]/ZIP Co de Phone Number [facility] [place] [address] * (ABNORMAL) Urinalysis with reflex Culture (04/03/2020 2:22 PM EST) Glucose UA Negative Negative mg/dL [facility] Protein UA 30(A) Negative mg/dL [facility] Bilirubin UA Negative Negative mg/dL [facility] Comment: Clinical correlation required for positive Urine Bilirubin results as false positive may occur with some drugs and drug related products. If a false positive is suspected a serum total bilirubin should be considered if clinically indicated. Urobilinogen UA Normal Normal mg/dL [facility] pH UA 6.0 5.0 - 8.0 [facility] Blood UA Negative Negative mg/dL [facility] [facility] Ketones UA 40(A) Negative mg/dL [facility] Nitrite UA Negative Negative [facility] Leukocytes UA Negative Negative mcL [facility] Appearance UA Clear Clear [facility] Spec Dawson UA 1.025 1.006 - 1.030 [facility] Color UA Yellow Yellow [facility] Culture Reflexed No [facility] Urine specimen (specimen) 04/03/2020 2:22 PM EST 04/03/2020 2:54 PM EST Narrative Resulting Agency Comment Spec In Lab Anjelica Jordan APRN URINE ORDERABLES [facility] [place] [address] * POCT Glucose (04/03/2020 12:47 PM EST) POC Glucose 151 65 - 199 mg/dL [facility] Comment: Supplemental ranges: <140 mg/dL before meals <180 mg/dL all other times of the day Blood specimen (specimen) 04/03/2020 12:47 PM EST 04/03/2020 12:47 PM EST Davian Carolina MD POINT OF CARE TEST ORDERABLES Performing Organization Address City/[facility]/ZIP Co de Phone Number [facility] [place] [address] * XR Abdomen 1 view (Generic) (04/03/2020 [...] please contact the number below. ? Narrative 04/03/2020 11:49 AM EST EXAMINATION: XR [...] signed by: Deepika Handy MD, [facility]([phone]), at 04/03/2020 11:49 AM Anjelica Jordan APRN IMG DX ORDERABLE S * POCT Glucose (04/03/2020 5:18 AM EST) POC Glucose 192 65 - 199 mg/dL [facility] Comment: Supplemental ranges: <140 mg/dL before meals <180 mg/dL all other times of the day Blood specimen (specimen) 04/03/2020 5:18 AM EST 04/03/2020 5:18 AM EST Davian Carolina MD POINT OF CARE TEST ORDERABLES Performing Organization Address City/[facility]/[place] [address] * (ABNORMAL) Differential, Automated (04/03/2020 2:50 AM EST) Neutrophils % 91.6 % [facility] Neutr Abs (ANC) 16.61(H) 1.70 - 6.10 x10(3)/ L [facility] Lymphocytes % 2.9 % [facility] Lymphocytes Abs 0.5(L) 0.9 - 3.2 x10(3)/[facility] Monocytes % 4.7 % [facility] Monocyte Abs 0.8 0.3 - 0.9 x10(3)/[facility] Eosinophils % 0.1 % [facility] Eosinophils Abs 0.0 0.0 - 0.4 x10(3)/[facility] Basophils % 0.2 % [facility] Basophils Abs 0.0 0.0 - 0.1 x10(3)/[facility] Immature Gran % 0.50 % [facility] Comment: Immature granulocytes(IG's)percentage and absolute count will include metamyelocytes, myelocytes, and promyelocytes. Blood smears from CBCs yielding IG's will be scanned manually for concordance. If this scan disagrees with the automated IG or if promyelocytes are noted, a manual differential will be performed. Nory Gran Abs 0.09(H) 0.00 - 0.04 x10(3)/ L [facility] Blood specimen (specimen) 04/03/2020 2:50 AM EST 04/03/2020 3:05 AM EST Narrative Resulting Agency Comment Spec In Lab Anjelica Jordan APRN HEMATOLOGY ORDER MAGAN Performing Organization Address City/[facility]/ZIP Co de Phone Number [facility] [place] [address] * (ABNORMAL) Hemogram (04/03/2020 2:50 AM EST) WBC 18.1(H) 4.0 - 9.5 x10(3)/[facility] RBC 3.40(L) 4.00 - 5.21 x10(6)/[facility] Hemoglobin 10.2(L) 11.7 - 15.5 gm/dL [facility] Hematocrit 30.9(L) 35.7 - 45.8 % [facility] MCV 90.9 82.6 - 94.4 fL [facility] MCH 30.0 27.1 - 32.0 pg [facility] MCHC 33.0 31.7 - 35.0 gm/dL [facility] Platelets 380(H) 145 - 357 x10(3)/[facility] RDWSD 40.6 37.0 - 46.0 [facility] RDWCV 12.3 11.5 - 14.1 % [facility] MPV 10.0 7.6 - 12.9 [facility] nRBC % Auto 0.0 % [facility] nRBC Abs Auto 0.000 0.000 - 0.000 x10(3)/[facility] Blood specimen (specimen) 04/03/2020 2:50 AM EST 04/03/2020 3:05 AM EST Narrative Resulting Agency Comment Spec In Lab Anjelica Jordan APRN HEMATOLOGY ORDER MAGAN [facility] [place] [address] * (ABNORMAL) Phosphorus (04/03/2020 2:50 AM EST) Phosphorus 2.2(L) 2.5 - 4.5 mg/dL [facility] Blood specimen (specimen) 04/03/2020 2:50 AM EST 04/03/2020 3:05 AM EST Narrative Resulting Agency Comment Spec In Lab Anjelica E Nikki NUCLEAR STATION OPERATOR CHEMISTRY ORDERA BLES Performing Organization Address City/[facility]/ZIP Co de Phone Number [facility] [place] [address] * Magnesium (04/03/2020 2:50 AM EST) Magnesium 0.76 0.69 - 1.07 mmol/L [facility] Blood specimen (specimen) 04/03/2020 2:50 AM EST 04/03/2020 3:05 AM EST Narrative Resulting Agency Comment Spec In Lab Anjelica Jordan NUCLEAR STATION OPERATOR CHEMISTRY ORDERA BLES Performing Organization Address [facility] Co de Phone Number [facility] [place] [address] * (ABNORMAL) Basic Metabolic Panel (non-fasting) (04/03/2020 2:50 AM EST) Glucose Lvl 162 65 - 199 mg/dL [facility] Comment:Diabetes: >=200 mg/d L plus symptoms BUN 11 8 - 18 mg/dL [facility] Creatinine 0.37(L) 0.70 - 1.20 mg/dL [facility] Sodium 129(L) 135 - 145 mmol/L [facility] Potassium 3.8 3.5 - 5.0 mmol/L [facility] Comment: Please note: ??Patients with WBC >100,000 may have falsely elevated Potassium levels. ??For accurate Potassium quantification in these patients send serum separator tube (gold top) for subsequent determinations. ??Contact the Clinical Chemistry Laboratory if there are any questions. Chloride 96(L) 98 - 107 mmol/L [facility] CO2 23 22 - 31 mmol/L [facility] Anion Gap 10 5 - 15 mmol/L [facility] Calcium 7.6(L) 8.5 - 10.5 mg/dL [facility] Estimated GFR 106 >=60 mL/min/1. 73 m?? [facility] Comment: This patient? s estimated glomerular [...] APRN CHEMISTRY ORDERA BLES Performing Organization Address City/[facility]/ZIP Co de Phone Number [facility] [place] [address] * POCT Glucose (04/02/2020 10:57 PM EST) POC Glucose 164 65 - 199 mg/dL [facility] Comment: Supplemental ranges: <140 mg/dL before meals <180 mg/dL all other times of the day Blood specimen (specimen) 04/02/2020 10:57 PM EST 04/02/2020 10:57 PM EST Davian Carolina MD POINT OF CARE TEST ORDERABLES Performing Organization Address [facility]/ZIP Co de Phone Number [facility] [place] [address] * XR Chest One View (04/02/2020 7:21 [...] ? Electronically signed by: Olayinka Mcduffie MD, [facility] ([phone]), at 04/02/2020 8:07 PM Narrative 04/02/2020 8:07 [...] signed by: Olayinka Mcduffie MD, [facility]([phone]), at 04/02/2020 8:07 PM Davian Carolina MD [...] signed by: Jayro Maier MD, [facility] ([phone]), at 04/02/2020 8:17 PM Narrative 04/02/2020 8:17 [...] Glucose Lvl 92 65 - 199 mg/dL [facility] Comment:Diabetes: >=200 mg/d L plus symptoms BUN 8 8 - 18 mg/dL [facility] Creatinine 0.40(L) 0.70 - 1.20 mg/dL [facility] Sodium 132(L) 135 - 145 mmol/L [facility] Potassium 3.9 3.5 - 5.0 mmol/L [facility] Comment: Please note: ??Patients with WBC >100,000 may have falsely elevated Potassium levels. ??For accurate Potassium quantification in these patients send serum separator tube (gold top) for subsequent determinations. ??Contact the Clinical Chemistry Laboratory if there are any questions. Chloride 96(L) 98 - 107 mmol/L [facility] CO2 22 22 - 31 mmol/L [facility] Anion Gap 14 5 - 15 mmol/L [facility] Calcium 7.7(L) 8.5 - 10.5 mg/dL [facility] Estimated GFR 103 >=60 mL/min/1. 73 m?? [facility] Comment: This patient? s estimated glomerular [...] APRN CHEMISTRY ORDERA BLES Performing Organization Address [facility]/ZIP Co de Phone Number [facility] [place] [address] * POCT Glucose (04/02/2020 5:17 PM EST) Pathologist [facility] POC Glucose 85 65 - 199 mg/dL [facility] Comment: Supplemental ranges: <140 mg/dL before meals <180 mg/dL all other times of the day Blood specimen (specimen) 04/02/2020 5:17 PM EST 04/02/2020 5:17 PM EST Davian Carolina MD POINT OF CARE TEST ORDERABLES Performing Organization Address City/[facility]/ZIP Co de Phone Number [facility] [place] [address] * UPPER GI ENDOSCOPY (04/02/2020 2:52 PM EST) Pathologist [facility] UPPER GI ENDOSCOPY [facility] Endoscopy Procedure Date: 04/02/2020 2:52 PM ? Patient Name: Linda Abel ? Date of : 1945 ? Age: 74 ? Order #: [id number] ? Instrument Name: [id number] ? Procedure: ? Upper GI endoscopy Indications: ? Abnormal CT of the GI tract Providers: ? Anjelica Le, ? Chela Lawler Referring MD: ? Medicines: [...] GENERAL SURGICAL ORD ERABLES Performing Organization Address City/[facility] Co de Phone Number [facility] * POCT Glucose (04/02/2020 12:12 PM EST) POC Glucose 106 65 - 199 mg/dL [facility] Comment: Supplemental ranges: <140 mg/dL before meals <180 mg/dL all other times of the day Blood specimen (specimen) 04/02/2020 12:12 PM EST 04/02/2020 12:12 PM EST Davian Carolina MD POINT OF CARE TEST ORDERABLES Performing Organization Address [facility] de Phone Number [facility] [place] [address] * POCT Glucose (04/02/2020 9:58 AM EST) POC Glucose 104 65 - 199 mg/dL [facility] Comment: Supplemental ranges: <140 mg/dL before meals <180 mg/dL all other times of the day Blood specimen (specimen) 04/02/2020 9:58 AM EST 04/02/2020 9:58 AM EST Davian Carolina MD POINT OF CARE TEST ORDERABLES Performing Organization Address [facility] de Phone Number [facility] [place] [address] * POCT Glucose (04/02/2020 8:04 AM EST) POC Glucose 106 65 - 199 mg/dL [facility] Comment: Supplemental ranges: <140 mg/dL before meals <180 mg/dL all other times of the day Blood specimen (specimen) 04/02/2020 8:04 AM EST 04/02/2020 8:04 AM EST Davian Carolina MD POINT OF CARE TEST ORDERABLES [facility] [place] [address] * (ABNORMAL) Differential, Automated (04/02/2020 1:40 AM EST) Neutrophils % 88.6 % [facility] Neutr Abs (ANC) 14.39(H) 1.70 - 6.10 x10(3)/[facility] Lymphocytes % 6.2 % [facility] Lymphocytes Abs 1.0 0.9 - 3.2 x10(3)/[facility] Monocytes % 4.2 % [facility] Monocyte Abs 0.7 0.3 - 0.9 x10(3)/[facility] Eosinophils % 0.1 % [facility] Eosinophils Abs 0.0 0.0 - 0.4 x10(3)/[facility] Basophils % 0.5 % [facility] Basophils Abs 0.1 0.0 - 0.1 x10(3)/[facility] Immature Gran % 0.40 % [facility] Comment: Immature granulocytes(IG's)percentage and absolute count will include metamyelocytes, myelocytes, and promyelocytes. Blood smears from CBCs yielding IG's will be scanned manually for concordance. If this scan disagrees with the automated IG or if promyelocytes are noted, a manual differential will be performed. Nory Gran Abs 0.07(H) 0.00 - 0.04 x10(3)/[facility] Blood specimen (specimen) 04/02/2020 1:40 AM EST 04/02/2020 1:45 AM EST Narrative Resulting Agency Comment Spec In Lab Anjelica Jordan APRN HEMATOLOGY ORDER MAGAN Performing Organization Address City/[facility]/ZIP Co de Phone Number [facility] [place] [address] * (ABNORMAL) Hemogram (04/02/2020 1:40 AM EST) WBC 16.2(H) 4.0 - 9.5 x10(3)/[facility] RBC 3.53(L) 4.00 - 5.21 x10(6)/[facility] Hemoglobin 11.0(L) 11.7 - 15.5 gm/dL [facility] Hematocrit 31.1(L) 35.7 - 45.8 % [facility] MCV 88.1 82.6 - 94.4 [facility] MCH 31.2 27.1 - 32.0 pg [facility] MCHC 35.4(H) 31.7 - 35.0 gm/dL [facility] Platelets 351 145 - 357 x10(3)/[facility] RDWSD 40.2 37.0 - 46.0 [facility] RDWCV 12.4 11.5 - 14.1 % [facility] MPV 10.2 7.6 - 12.9 [facility] nRBC % Auto 0.0 % [facility] nRBC Abs Auto 0.000 0.000 - 0.000 x10(3)/[facility] Blood specimen (specimen) 04/02/2020 1:40 AM EST 04/02/2020 1:45 AM EST Narrative Resulting Agency Comment Spec In Lab Anjelica Jordan APRN HEMATOLOGY ORDER MAGAN Performing Organization Address City/[facility]/ZIP Co de Phone Number [facility] [place] [address] * Phosphorus (04/02/2020 1:40 AM EST) Phosphorus 3.5 2.5 - 4.5 mg/dL [facility] Blood specimen (specimen) 04/02/2020 1:40 AM EST 04/02/2020 1:45 AM EST Narrative Resulting Agency Comment Spec In Lab Anjelica Jordan NUCLEAR STATION OPERATOR CHEMISTRY ORDERA BLES Performing Organization Address [facility] Co de Phone Number [facility] [place] [address] * Magnesium (04/02/2020 1:40 AM EST) Pathologist [facility] Magnesium 0.69 0.69 - 1.07 mmol/L [facility] Blood specimen (specimen) 04/02/2020 1:40 AM EST 04/02/2020 1:45 AM EST Narrative Resulting Agency Comment Spec In Lab Anjelica Jordan NUCLEAR STATION OPERATOR CHEMISTRY ORDERA BLES Performing Organization Address [facility] Co de Phone Number [facility] [place] [address] * (ABNORMAL) Basic Metabolic Panel (non-fasting) (04/02/2020 1:40 AM EST) Pathologist [facility] Glucose Lvl 115 65 - 199 mg/dL [facility] Comment:Diabetes: >=200 mg/d L plus symptoms BUN 11 8 - 18 mg/dL [facility] Creatinine 0.57(L) 0.70 - 1.20 mg/dL [facility] Sodium 131(L) 135 - 145 mmol/L [facility] Potassium 4.3 3.5 - 5.0 mmol/L [facility] Comment: Please note: ??Patients with WBC >100,000 may have falsely elevated Potassium levels. ??For accurate Potassium quantification in these patients send serum separator tube (gold top) for subsequent determinations. ??Contact the Clinical Chemistry Laboratory if there are any questions. Chloride 94(L) 98 - 107 mmol/L [facility] CO2 24 22 - 31 mmol/L [facility] Anion Gap 13 5 - 15 mmol/L [facility] Calcium 8.2(L) 8.5 - 10.5 mg/dL [facility] Estimated GFR 92 >=60 mL/min/1. 73 m?? [facility] Comment: This patient? s estimated glomerular [...] APRN CHEMISTRY ORDERA BLES Performing Organization Address City/[facility]/ZIP Co de Phone Number [facility] [place] [address] * POCT Glucose (04/01/2020 7:48 PM EST) POC Glucose 109 65 - 199 mg/dL [facility] Comment: Supplemental ranges: <140 mg/dL before meals <180 mg/dL all other times of the day Blood specimen (specimen) 04/01/2020 7:48 PM EST 04/01/2020 7:48 PM EST Davian Carolina MD POINT OF CARE TEST ORDERABLES Performing Organization Address City/[facility]/ZIP Co de Phone Number [facility] [place] [address] * XR Abdomen 1 view (Generic) (04/01/2020 5:52 PM EST) Anatomical Region Laterality Modality Abdomen N/A Digital Radiogra phy Impressions 04/01/2020 5:59 PM EST Enteric tube with distal side-port overlying the region of the stomach. Thank you for letting us participate in the care of this patient. For questions regarding this report, please contact the number below. ? Electronically signed by: CALEB KPAOOR DO, [facility] ([phone]), at 04/01/2020 5:59 PM Narrative 04/01/2020 5:59 [...] signed by: CALEB KAPOOR DO, [facility]([phone]), at 04/01/2020 5:59 PM Davian Carolina MD IMG DX ORDERABLES * (ABNORMAL) BMP w/fasting Glucose (04/01/2020 3:53 PM EST) Glucose Fasting 112(H) 65 - 99 mg/dL [facility] Comment: ?Fasting* Glucose Interpretive Criteria Normal [...] of Diabetes Mellitus, Position Statement from the [place] [employer]. ??Diabetes Care, Volume 33, Supplement 1, Apr 2009 BUN 9 8 - 18 mg/dL [facility] Creatinine 0.51(L) 0.70 - 1.20 mg/dL [facility] Sodium 128(L) 135 - 145 mmol/L [facility] Potassium 3.8 3.5 - 5.0 mmol/L [facility] Comment: Please note: ??Patients with WBC >100,000 may have falsely elevated Potassium levels. ??For accurate Potassium quantification in these patients send serum separator tube (gold top) for subsequent determinations. ??Contact the Clinical Chemistry Laboratory if there are any questions. Chloride 89(L) 98 - 107 mmol/L [facility] CO2 27 22 - 31 mmol/L [facility] Anion Gap 12 5 - 15 mmol/L [facility] Calcium 8.4(L) 8.5 - 10.5 mg/dL [facility] Estimated GFR 95 >=60 mL/min/1. 73 m?? [facility] Comment: This patient? s estimated glomerular [...] MD CHEMISTRY ORDERABL ES Performing Organization Address City/[facility]/ZIP Co de Phone Number [facility] [place] [address] * POCT Glucose (04/01/2020 3:31 PM EST) POC Glucose 111 65 - 199 mg/dL [facility] Comment: Supplemental ranges: <140 mg/dL before meals <180 mg/dL all other times of the day Blood specimen (specimen) 04/01/2020 3:31 PM EST 04/01/2020 3:31 PM EST Davian Carolina MD POINT OF CARE TEST ORDERABLES Performing Organization Address [facility]/ZIP Co de Phone Number [facility] [place] [address] * CT Abdomen & Pelvis w Contrast [...] signed by: Raimundo Mccurdy MD, [facility] ([phone]), at 04/01/2020 4:09 PM Narrative 04/01/2020 4:09 [...] administration of contrast. Administered 66.0 ml of [id number] mg/ml. Oral contrast was administered. COMPARISON: Postoperative [...] signed by: Raimundo Mccurdy MD, [facility]([phone]), at 04/01/2020 4:09 PM Anjelica Jordan APRN IMG CT ORDERABLE S * POCT Glucose (04/01/2020 11:20 AM EST) POC Glucose 138 65 - 199 mg/dL [facility] Comment: Supplemental ranges: <140 mg/dL before meals <180 mg/dL all other times of the day Blood specimen (specimen) 04/01/2020 11:20 AM EST 04/01/2020 11:20 AM EST Davian Carolina MD POINT OF CARE TEST ORDERABLES [facility] [place] [address] * POCT Glucose (04/01/2020 7:30 AM EST) POC Glucose 170 65 - 199 mg/dL [facility] Comment: Supplemental ranges: <140 mg/dL before meals <180 mg/dL all other times of the day Blood specimen (specimen) 04/01/2020 7:30 AM EST 04/01/2020 7:30 AM EST Davian Carolina MD POINT OF CARE TEST ORDERABLES Performing Organization Address City/[facility]/ZIP Co de Phone Number [facility] [place] [address] * POCT Glucose (04/01/2020 4:43 AM EST) Pathologist [facility] POC Glucose 152 65 - 199 mg/dL [facility] Comment: Supplemental ranges: <140 mg/dL before meals <180 mg/dL all other times of the day Blood specimen (specimen) 04/01/2020 4:43 AM EST 04/01/2020 4:43 AM EST Davian Carolina MD POINT OF CARE TEST ORDERABLES Performing Organization Address [facility] Co de Phone Number [facility] [place] [address] * (ABNORMAL) Differential, Automated (04/01/2020 4:20 AM EST) Pathologist [facility] Neutrophils % 85.6 % [facility] Neutr Abs (ANC) 8.42(H) 1.70 - 6.10 x10(3)/mc L [facility] Lymphocytes % 7.1 % [facility] Lymphocytes Abs 0.7(L) 0.9 - 3.2 x10(3)/mc L [facility] Monocytes % 5.2 % [facility] Monocyte Abs 0.5 0.3 - 0.9 x10(3)/mc L [facility] Eosinophils % 1.2 % [facility] Eosinophils Abs 0.1 0.0 - 0.4 x10(3)/mc L [facility] Basophils % 0.4 % [facility] Basophils Abs 0.0 0.0 - 0.1 x10(3)/mc L [facility] Immature Gran % 0.50 % [facility] Comment: Immature granulocytes(IG's)percentage and absolute count will include metamyelocytes, myelocytes, and promyelocytes. Blood smears from CBCs yielding IG's will be scanned manually for concordance. If this scan disagrees with the automated IG or if promyelocytes are noted, a manual differential will be performed. Nory Gran Abs 0.05(H) 0.00 - 0.04 x10(3)/ L [facility] Blood specimen (specimen) 04/01/2020 4:20 AM EST 04/01/2020 4:30 AM EST Narrative Resulting Agency Comment Spec In Lab Edwardo Mccormack MD HEMATOLOGY ORDERABLE S [facility] [place] [address] * (ABNORMAL) Hemogram (04/01/2020 4:20 AM EST) WBC 9.8(H) 4.0 - 9.5 x10(3)/[facility] RBC 3.72(L) 4.00 - 5.21 x10(6)/[facility] Hemoglobin 11.3(L) 11.7 - 15.5 gm/dL [facility] Hematocrit 32.9(L) 35.7 - 45.8 % [facility] MCV 88.4 82.6 - 94.4 fL [facility] MCH 30.4 27.1 - 32.0 pg [facility] MCHC 34.3 31.7 - 35.0 gm/dL [facility] Platelets 320 145 - 357 x10(3)/[facility] LAB[facility] RDWSD 39.5 37.0 - 46.0 [facility]ORY RDWCV 12.2 11.5 - 14.1 % [facility] MPV 10.6 7.6 - 12.9 fL [facility] nRBC % Auto 0.0 % [facility] nRBC Abs Auto 0.000 0.000 - 0.000 x10(3)/mcL [facility] Blood specimen (specimen) 04/01/2020 4:20 AM EST 04/01/2020 4:30 AM EST Narrative Resulting Agency Comment Spec In Lab Edwardo Mccormack MD HEMATOLOGY ORDERABLE S [facility] [place] [address] * (ABNORMAL) Basic Metabolic Panel (non-fasting) (04/01/2020 4:20 AM EST) Glucose Lvl 141 65 - 199 mg/dL [facility] Comment:Diabetes: >=200 mg/d L plus symptoms BUN 11 8 - 18 mg/dL [facility] Creatinine 0.48(L) 0.70 - 1.20 mg/dL [facility] Sodium 130(L) 135 - 145 mmol/L [facility] Potassium 3.5 3.5 - 5.0 mmol/L [facility] Comment: Please note: ??Patients with WBC >100,000 may have falsely elevated Potassium levels. ??For accurate Potassium quantification in these patients send serum separator tube (gold top) for subsequent determinations. ??Contact the Clinical Chemistry Laboratory if there are any questions. Chloride 91(L) 98 - 107 mmol/L [facility] CO2 31 22 - 31 mmol/L [facility] Anion Gap 8 5 - 15 mmol/L [facility] Calcium 8.3(L) 8.5 - 10.5 mg/dL [facility] Estimated GFR 97 >=60 mL/min/1. 73 m?? [facility] Comment: This patient? s estimated glomerular [...] ORDERABL ES Performing Organization Address [facility] Co de Phone Number [facility] [place] [address] * POCT Glucose (04/01/2020 12:06 AM EST) POC Glucose 141 65 - 199 mg/dL [facility] Comment: Supplemental ranges: <140 mg/dL before meals <180 mg/dL all other times of the day Blood specimen (specimen) 04/01/2020 12:06 AM EST 04/01/2020 12:06 AM EST Davian Carolina MD POINT OF CARE TEST ORDERABLES Performing Organization Address [facility] Co de Phone Number [facility] [place] [address] * POCT Glucose (03/31/2020 8:52 PM EST) POC Glucose 159 65 - 199 mg/dL [facility] Comment: Supplemental ranges: <140 mg/dL before meals <180 mg/dL all other times of the day Blood specimen (specimen) 03/31/2020 8:52 PM EST 03/31/2020 8:52 PM EST Davian Carolina MD POINT OF CARE TEST ORDERABLES Performing Organization Address [facility] Co de Phone Number [facility] [place] [address] * XR Abdomen Flat & Upright (03/31/2020 [...] POC Glucose 169 65 - 199 mg/dL [facility] Comment: Supplemental ranges: <140 mg/dL before meals <180 mg/dL all other times of the day Blood specimen (specimen) 03/31/2020 4:52 PM EST 03/31/2020 4:52 PM EST Davian Carolina MD POINT OF CARE TEST ORDERABLES [facility] [place] [address] * POCT Glucose (03/31/2020 12:03 PM EST) POC Glucose 134 65 - 199 mg/dL [facility] Comment: Supplemental ranges: <140 mg/dL before meals <180 mg/dL all other times of the day Blood specimen (specimen) 03/31/2020 12:03 PM EST 03/31/2020 12:03 PM EST Davian Carolina MD POINT OF CARE TEST ORDERABLES Performing Organization Address City/[facility] Co de Phone Number [facility] [place] [address] * POCT Glucose (03/31/2020 7:35 AM EST) Pathologist [facility] POC Glucose 128 65 - 199 mg/dL [facility] Comment: Supplemental ranges: <140 mg/dL before meals <180 mg/dL all other times of the day Blood specimen (specimen) 03/31/2020 7:35 AM EST 03/31/2020 7:35 AM EST Davian Carolina MD POINT OF CARE TEST ORDERABLES Performing Organization Address [facility] de Phone Number [facility] [place] [address] * (ABNORMAL) Differential, Automated (03/31/2020 6:36 AM EST) Pathologist [facility] Neutrophils % 81.8 % [facility] Neutr Abs (ANC) 7.38(H) 1.70 - 6.10 x10(3)/ L [facility] Lymphocytes % 7.7 % [facility] Lymphocytes Abs 0.7(L) 0.9 - 3.2 x10(3)/[facility] Monocytes % 6.9 % [facility] Monocyte Abs 0.6 0.3 - 0.9 x10(3)/ L [facility] Eosinophils % 2.7 % [facility] Eosinophils Abs 0.2 0.0 - 0.4 x10(3)/[facility] Basophils % 0.3 % [facility] Basophils Abs 0.0 0.0 - 0.1 x10(3)/ L [facility] Immature Gran % 0.60 % [facility] Comment: Immature granulocytes(IG's)percentage and absolute count will include metamyelocytes, myelocytes, and promyelocytes. Blood smears from CBCs yielding IG's will be scanned manually for concordance. If this scan disagrees with the automated IG or if promyelocytes are noted, a manual differential will be performed. Nory Gran Abs 0.05(H) 0.00 - 0.04 x10(3)/mc L [facility] Blood specimen (specimen) 03/31/2020 6:36 AM EST 03/31/2020 6:55 AM EST Narrative Resulting Agency Comment Spec In Lab Anjelica Jordan APRN HEMATOLOGY ORDER MAGAN [facility] [place] [address] * (ABNORMAL) Hemogram (03/31/2020 6:36 AM EST) WBC 9.0 4.0 - 9.5 x10(3)/[facility] RBC 3.76(L) 4.00 - 5.21 x10(6)/[facility] Hemoglobin 11.4(L) 11.7 - 15.5 gm/dL [facility] Hematocrit 33.7(L) 35.7 - 45.8 % [facility] MCV 89.6 82.6 - 94.4 fL [facility] MCH 30.3 27.1 - 32.0 pg [facility] MCHC 33.8 31.7 - 35.0 gm/dL [facility] Platelets 252 145 - 357 x10(3)/[facility] RDWSD 41.2 37.0 - 46.0 fL [facility] RDWCV 12.5 11.5 - 14.1 % [facility] MPV 10.7 7.6 - 12.9 fL [facility] nRBC % Auto 0.0 % [facility] nRBC Abs Auto 0.000 0.000 - 0.000 x10(3)/mcL [facility] Blood specimen (specimen) 03/31/2020 6:36 AM EST 03/31/2020 6:55 AM EST Narrative Resulting Agency Comment Spec In Lab Anjelica Jordan JESUS ALBERTO HEMATOLOGY ORDER MAGAN [facility] [place] [address] * (ABNORMAL) BMP w/fasting Glucose (03/31/2020 6:36 AM EST) Glucose Fasting 115(H) 65 - 99 mg/dL [facility] Comment: ?Fasting* Glucose Interpretive Criteria Normal [...] of Diabetes Mellitus, Position Statement from the [place] [employer]. ??Diabetes Care, Volume 33, Supplement 1, Apr 2009 BUN 16 8 - 18 mg/dL [facility] Creatinine 0.48(L) 0.70 - 1.20 mg/dL [facility] Sodium 133(L) 135 - 145 mmol/L [facility] Potassium 3.9 3.5 - 5.0 mmol/L [facility] Comment: Please note: ??Patients with WBC >100,000 may have falsely elevated Potassium levels. ??For accurate Potassium quantification in these patients send serum separator tube (gold top) for subsequent determinations. ??Contact the Clinical Chemistry Laboratory if there are any questions. Chloride 95(L) 98 - 107 mmol/L [facility] CO2 29 22 - 31 mmol/L [facility] Anion Gap 9 5 - 15 mmol/L [facility] Calcium 8.7 8.5 - 10.5 mg/dL [facility] Estimated GFR 97 >=60 mL/min/1. 73 m?? [facility] Comment: This patient? s estimated glomerular [...] MD CHEMISTRY ORDERABL ES Performing Organization Address City/[facility]/ZIP Co de Phone Number [facility] [place] [address] * Phosphorus (03/31/2020 6:36 AM EST) Phosphorus 3.7 2.5 - 4.5 mg/dL [facility] Blood specimen (specimen) 03/31/2020 6:36 AM EST 03/31/2020 6:55 AM EST Narrative Resulting Agency Comment Spec In Lab Anjelica Jordan APRN CHEMISTRY ORDERA BLES [facility] [place] [address] * Magnesium (03/31/2020 6:36 AM EST) Magnesium 0.77 0.69 - 1.07 mmol/L [facility] Blood specimen (specimen) 03/31/2020 6:36 AM EST 03/31/2020 6:55 AM EST Narrative Resulting Agency Comment Spec In Lab Anjelica Jordan APRN CHEMISTRY ANNYA BLES Performing Organization Address [facility] de Phone Number [facility] [place] [address] * POCT Glucose (03/30/2020 8:05 PM EST) POC Glucose 136 65 - 199 mg/dL [facility] Comment: Supplemental ranges: <140 mg/dL before meals <180 mg/dL all other times of the day Blood specimen (specimen) 03/30/2020 8:05 PM EST 03/30/2020 8:05 PM EST Davian Carolina MD POINT OF CARE TEST ORDERABLES Performing Organization Address [facility] de Phone Number [facility] [place] [address] * POCT Glucose (03/30/2020 4:55 PM EST) POC Glucose 129 65 - 199 mg/dL [facility] Comment: Supplemental ranges: <140 mg/dL before meals <180 mg/dL all other times of the day Blood specimen (specimen) 03/30/2020 4:55 PM EST 03/30/2020 4:55 PM EST Davian Carolina MD POINT OF CARE TEST ORDERABLES Performing Organization Address [facility] de Phone Number [facility] [place] [address] * C-peptide (03/30/2020 1:45 PM EST) C-Peptide 1.4 0.8 - 5.2 ng/mL [facility] Blood specimen (specimen) 03/30/2020 1:45 PM EST 03/30/2020 1:52 PM EST Narrative Resulting Agency Comment Spec In Lab Katie Santamaria APRN CHEMISTRY ORDERABLE S Performing Organization Address City/[facility]/ZIP Co de Phone Number [facility] [place] [address] * POCT Glucose (03/30/2020 11:41 AM EST) POC Glucose 156 65 - 199 mg/dL [facility] Comment: Supplemental ranges: <140 mg/dL before meals <180 mg/dL all other times of the day Blood specimen (specimen) 03/30/2020 11:41 AM EST 03/30/2020 11:41 AM EST Davian Carolina MD POINT OF CARE TEST ORDERABLES Performing Organization Address [facility] Co de Phone Number [facility] [place] [address] * POCT Glucose (03/30/2020 7:43 AM EST) POC Glucose 160 65 - 199 mg/dL [facility] Comment: Supplemental ranges: <140 mg/dL before meals <180 mg/dL all other times of the day Blood specimen (specimen) 03/30/2020 7:43 AM EST 03/30/2020 7:43 AM EST Davian Carolina MD POINT OF CARE TEST ORDERABLES Performing Organization Address City/[facility] Co de Phone Number [facility] [place] [address] * (ABNORMAL) Hemoglobin A1c (03/30/2020 1:20 AM EST) Hemoglobin A1C 5.8(H) 4.3 - 5.6 % [facility] Comment: Reference Range: 4.3 - 5.6% [...] Mellitus, Diabetes Care 2013; 36: Suppl. 1, S67-74 Est Avg Gluc See note mg/dL [facility] Comment: Estimated Average Glucose not appropriate [...] into estimated average glucose values. ??Diabetes Care 2008:31(8):9817-7106. Blood specimen (specimen) Venous Draw / Unknown 03/30/2020 1:20 AM EST 03/30/2020 8:28 AM EST Narrative Resulting Agency Comment Spec In Lab Anjelica Jordan APRN CHEMISTRY ORDERA BLES [facility] [place] [address] * (ABNORMAL) Differential, Automated (03/30/2020 1:20 AM EST) Neutrophils % 77.8 % [facility] Neutr Abs (ANC) 8.06(H) 1.70 - 6.10 x10(3)/[facility] Lymphocytes % 12.1 % [facility] Lymphocytes Abs 1.2 0.9 - 3.2 x10(3)/[facility] Monocytes % 7.0 % [facility] Monocyte Abs 0.7 0.3 - 0.9 x10(3)/[facility] Eosinophils % 2.4 % [facility] Eosinophils Abs 0.2 0.0 - 0.4 x10(3)/[facility] Basophils % 0.2 % [facility] Basophils Abs 0.0 0.0 - 0.1 x10(3)/[facility] Immature Gran % 0.50 % [facility] Comment: Immature granulocytes(IG's)percentage and absolute count will include metamyelocytes, myelocytes, and promyelocytes. Blood smears from CBCs yielding IG's will be scanned manually for concordance. If this scan disagrees with the automated IG or if promyelocytes are noted, a manual differential will be performed. Nory Gran Abs 0.05(H) 0.00 - 0.04 x10(3)/[facility] Blood specimen (specimen) 03/30/2020 1:20 AM EST 03/30/2020 1:33 AM EST Narrative Resulting Agency Comment Spec In Lab Anjelica Jordan APRN HEMATOLOGY ORDER MAGAN [facility] [place] [address] * (ABNORMAL) Hemogram (03/30/2020 1:20 AM EST) WBC 10.4(H) 4.0 - 9.5 x10(3)/[facility] RBC 3.91(L) 4.00 - 5.21 x10(6)/[facility] Hemoglobin 12.0 11.7 - 15.5 gm/dL [facility] Hematocrit 34.9(L) 35.7 - 45.8 % [facility] MCV 89.3 82.6 - 94.4 fL [facility] MCH 30.7 27.1 - 32.0 pg [facility] MCHC 34.4 31.7 - 35.0 gm/dL [facility] Platelets 231 145 - 357 x10(3)/[facility] RDWSD 40.1 37.0 - 46.0 [facility] RDWCV 12.4 11.5 - 14.1 % [facility] MPV 10.2 7.6 - 12.9 [facility] nRBC % Auto 0.0 % [facility] nRBC Abs Auto 0.000 0.000 - 0.000 x10(3)/[facility] Blood specimen (specimen) 03/30/2020 1:20 AM EST 03/30/2020 1:33 AM EST Narrative Resulting Agency Comment Spec In Lab Anjelica Jordan APRN HEMATOLOGY ORDER MAGAN Performing Organization Address City/State/[facility] Co de Phone Number [facility] [place] [address] * (ABNORMAL) BMP w/fasting Glucose (03/30/2020 1:20 AM EST) Glucose Fasting 158(H) 65 - 99 mg/dL [facility] Comment: ?Fasting* Glucose Interpretive Criteria Normal [...] of Diabetes Mellitus, Position Statement from the [place] [employer]. ??Diabetes Care, Volume 33, Supplement 1, Apr 2009 BUN 15 8 - 18 mg/dL [facility] Creatinine 0.40(L) 0.70 - 1.20 mg/dL [facility] Sodium 135 135 - 145 mmol/L [facility] Potassium 3.7 3.5 - 5.0 mmol/L [facility] Comment: Please note: ??Patients with WBC >100,000 may have falsely elevated Potassium levels. ??For accurate Potassium quantification in these patients send serum separator tube (gold top) for subsequent determinations. ??Contact the Clinical Chemistry Laboratory if there are any questions. Chloride 98 98 - 107 mmol/L [facility] CO2 28 22 - 31 mmol/L [facility] Anion Gap 9 5 - 15 mmol/L [facility] Calcium 8.2(L) 8.5 - 10.5 mg/dL [facility] Estimated GFR 103 >=60 mL/min/1. 73 m?? [facility] Comment: This patient? s estimated glomerular [...] Lab Davian Carolina MD CHEMISTRY ORDERABL ES [facility] [place] [address] * Phosphorus (03/30/2020 1:20 AM EST) Phosphorus 3.3 2.5 - 4.5 mg/dL [facility] Blood specimen (specimen) 03/30/2020 1:20 AM EST 03/30/2020 1:33 AM EST Narrative Resulting Agency Comment Spec In Lab Anjelica Jordan NUCLEAR STATION OPERATOR CHEMISTRY ORDERA BLES Performing Organization Address [facility] Co de Phone Number [facility] [place] [address] * Magnesium (03/30/2020 1:20 AM EST) Pathologist [facility] Magnesium 0.83 0.69 - 1.07 mmol/L [facility] Blood specimen (specimen) 03/30/2020 1:20 AM EST 03/30/2020 1:33 AM EST Narrative Resulting Agency Comment Spec In Lab Anjelica Jordan NUCLEAR STATION OPERATOR CHEMISTRY ORDERA BLES Performing Organization Address [facility] de Phone Number [facility] [place] [address] * POCT Glucose (03/29/2020 8:57 PM EST) [facility] POC Glucose 154 65 - 199 mg/dL [facility] Comment: Supplemental ranges: <140 mg/dL before meals <180 mg/dL all other times of the day Blood specimen (specimen) 03/29/2020 8:57 PM EST 03/29/2020 8:57 PM EST Davian Carolina MD POINT OF CARE TEST ORDERABLES Performing Organization Address [facility] Co de Phone Number [facility] [place] [address] * POCT Glucose (03/29/2020 4:13 PM EST) [facility] POC Glucose 181 65 - 199 mg/dL [facility] Comment: Supplemental ranges: <140 mg/dL before meals <180 mg/dL all other times of the day Blood specimen (specimen) 03/29/2020 4:13 PM EST 03/29/2020 4:13 PM EST Davian Carolina MD POINT OF CARE TEST ORDERABLES Performing Organization Address [facility]/ZIP Co de Phone Number [facility] [place] [address] * POCT Glucose (03/29/2020 12:25 PM EST) POC Glucose 196 65 - 199 mg/dL [facility] Comment: Supplemental ranges: <140 mg/dL before meals <180 mg/dL all other times of the day Blood specimen (specimen) 03/29/2020 12:25 PM EST 03/29/2020 12:25 PM EST Davian Carolina MD POINT OF CARE TEST ORDERABLES Performing Organization Address [facility] Co de Phone Number [facility] [place] [address] * POCT Glucose (03/29/2020 8:24 AM EST) POC Glucose 171 65 - 199 mg/dL [facility] Comment: Supplemental ranges: <140 mg/dL before meals <180 mg/dL all other times of the day Blood specimen (specimen) 03/29/2020 8:24 AM EST 03/29/2020 8:24 AM EST Davian Carolina MD POINT OF CARE TEST ORDERABLES Performing Organization Address City/[facility] Co de Phone Number [facility] [place] [address] * POCT Glucose (03/29/2020 4:22 AM EST) POC Glucose 151 65 - 199 mg/dL [facility] Comment: Supplemental ranges: <140 mg/dL before meals <180 mg/dL all other times of the day Blood specimen (specimen) 03/29/2020 4:22 AM EST 03/29/2020 4:22 AM EST Davian Carolina MD POINT OF CARE TEST ORDERABLES Performing Organization Address [facility] Phone Number [facility] [place] [address] * Phosphorus (03/29/2020 2:30 AM EST) Phosphorus 3.0 2.5 - 4.5 mg/dL [facility] Blood specimen (specimen) 03/29/2020 2:30 AM EST 03/29/2020 2:46 AM EST Narrative Resulting Agency Comment Spec In Lab Davian Carolina MD CHEMISTRY ORDERABL ES Performing Organization Address [facility] Phone Number [facility] [place] [address] * Magnesium (03/29/2020 2:30 AM EST) Magnesium 0.86 0.69 - 1.07 mmol/L [facility] Blood specimen (specimen) 03/29/2020 2:30 AM EST 03/29/2020 2:46 AM EST Narrative Resulting Agency Comment Spec In Lab Davian Carolina MD CHEMISTRY ORDERABL ES Performing Organization Address [facility] Phone Number [facility] [place] [address] * (ABNORMAL) Basic Metabolic Panel (non-fasting) (03/29/2020 2:30 AM EST) Glucose Lvl 163 65 - 199 mg/dL [facility] Comment:Diabetes: >=200 mg/d L plus symptoms BUN 18 8 - 18 mg/dL [facility] Creatinine 0.40(L) 0.70 - 1.20 mg/dL [facility] Sodium 139 135 - 145 mmol/L [facility] Potassium 3.6 3.5 - 5.0 mmol/L [facility] Comment: Please note: ??Patients with WBC >100,000 may have falsely elevated Potassium levels. ??For accurate Potassium quantification in these patients send serum separator tube (gold top) for subsequent determinations. ??Contact the Clinical Chemistry Laboratory if there are any questions. Chloride 104 98 - 107 mmol/L [facility] [facility] CO2 28 22 - 31 mmol/L [facility] Anion Gap 7 5 - 15 mmol/L [facility] Calcium 7.9(L) 8.5 - 10.5 mg/dL [facility] Estimated GFR 103 >=60 mL/min/1. 73 m?? [facility] Comment: This patient? s estimated glomerular [...] Lab Davian Carolina MD CHEMISTRY ORDERABL ES [facility] [place] [address] * Differential, Automated (03/29/2020 1:20 AM EST) Neutrophils % 71.0 % [facility] Neutr Abs (ANC) 4.85 1.70 - 6.10 x10(3)/[facility] Lymphocytes % 15.4 % [facility] Lymphocytes Abs 1.0 0.9 - 3.2 x10(3)/[facility] Monocytes % 10.1 % [facility] Monocyte Abs 0.7 0.3 - 0.9 x10(3)/[facility] Eosinophils % 2.6 % [facility] Eosinophils Abs 0.2 0.0 - 0.4 x10(3)/[facility] Basophils % 0.3 % [facility] Basophils Abs 0.0 0.0 - 0.1 x10(3)/[facility]OR[facility] Immature Gran % 0.60 % [facility] Comment: Immature granulocytes(IG's)percentage and absolute count will include metamyelocytes, myelocytes, and promyelocytes. Blood smears from CBCs yielding IG's will be scanned manually for concordance. If this scan disagrees with the automated IG or if promyelocytes are noted, a manual differential will be performed. Nory Gran Abs 0.04 0.00 - 0.04 x10(3)/[facility] LAB[facility] Blood specimen (specimen) 03/29/2020 1:20 AM EST 03/29/2020 1:42 AM EST Narrative Resulting Agency Comment Spec In Lab Anjelica Jordan APRN HEMATOLOGY ORDER MAGAN [facility] [place] [address] * (ABNORMAL) Hemogram (03/29/2020 1:20 AM EST) WBC 6.8 4.0 - 9.5 x10(3)/[facility] LAB[facility] RBC 3.37(L) 4.00 - 5.21 x10(6)/[facility] Hemoglobin 11.3(L) 11.7 - 15.5 gm/dL [facility] Hematocrit 31.8(L) 35.7 - 45.8 % [facility] MCV 94.4 82.6 - 94.4 fL [facility] MCH 33.5(H) 27.1 - 32.0 pg [facility] MCHC 35.5(H) 31.7 - 35.0 gm/dL [facility] Platelets 176 145 - 357 x10(3)/[facility] RDWSD 43.8 37.0 - 46.0 fL [facility] RDWCV 12.6 11.5 - 14.1 % [facility] MPV 10.4 7.6 - 12.9 fL [facility] nRBC % Auto 0.0 % [facility] nRBC Abs Auto 0.000 0.000 - 0.000 x10(3)/[facility] Blood specimen (specimen) 03/29/2020 1:20 AM EST 03/29/2020 1:42 AM EST Narrative Resulting Agency Comment Spec In Lab Anjelica Jordan APRN HEMATOLOGY ORDER MAGAN [facility] [place] [address] * POCT Glucose (03/29/2020 12:05 AM EST) POC Glucose 142 65 - 199 mg/dL [facility] Comment: Supplemental ranges: <140 mg/dL before meals <180 mg/dL all other times of the day Blood specimen (specimen) 03/29/2020 12:05 AM EST 03/29/2020 12:05 AM EST Davian Carolina MD POINT OF CARE TEST ORDERABLES [facility] [place] [address] * POCT Glucose (03/28/2020 7:28 PM EST) POC Glucose 174 65 - 199 mg/dL [facility] Comment: Supplemental ranges: <140 mg/dL before meals <180 mg/dL all other times of the day Blood specimen (specimen) 03/28/2020 7:28 PM EST 03/28/2020 7:28 PM EST Davian Carolina MD POINT OF CARE TEST ORDERABLES Performing Organization Address [facility] Co de Phone Number [facility] [place] [address] * POCT Glucose (03/28/2020 4:01 PM EST) POC Glucose 190 65 - 199 mg/dL [facility] Comment: Supplemental ranges: <140 mg/dL before meals <180 mg/dL all other times of the day Blood specimen (specimen) 03/28/2020 4:01 PM EST 03/28/2020 4:01 PM EST Davian Carolina MD POINT OF CARE TEST ORDERABLES Performing Organization Address [facility] de Phone Number [facility] [place] [address] * POCT Glucose (03/28/2020 11:34 AM EST) POC Glucose 188 65 - 199 mg/dL [facility] Comment: Supplemental ranges: <140 mg/dL before meals <180 mg/dL all other times of the day Blood specimen (specimen) 03/28/2020 11:34 AM EST 03/28/2020 11:34 AM EST Davian Carolina MD POINT OF CARE TEST ORDERABLES Performing Organization Address [facility] Co de Phone Number [facility] [place] [address] * POCT Glucose (03/28/2020 7:30 AM EST) POC Glucose 180 65 - 199 mg/dL [facility] Comment: Supplemental ranges: <140 mg/dL before meals <180 mg/dL all other times of the day Blood specimen (specimen) 03/28/2020 7:30 AM EST 03/28/2020 7:30 AM EST Davian Carolina MD POINT OF CARE TEST ORDERABLES Performing Organization Address City/State/[facility] de Phone Number [facility] [place] [address] * Amylase Level Body Fluid KHRIS Drain (03/28/2020 4:00 AM EST) Amylase, BF 12 unit/L [facility] Comment: No reference range is available for the specimen type submitted. ??The performance of this assay for the submitted type has not been validated and results should be interpreted accordingly and with regard to the patient's clinical status. Amylase BF Type KHRIS Drain [facility] KHRIS Drain 03/28/2020 4:00 AM EST 03/28/2020 4:16 AM EST Narrative Resulting Agency Comment Spec In Lab Davian Carolina MD BODY FLUIDS AND ST OOLS ORDERABLES Performing Organization Address [facility] Phone Number [facility] [place] [address] * (ABNORMAL) POCT Glucose (03/28/2020 3:57 AM EST) [facility] POC Glucose 200(H) 65 - 199 mg/dL [facility] Comment: Supplemental ranges: <140 mg/dL before meals <180 mg/dL all other times of the day Blood specimen (specimen) 03/28/2020 3:57 AM EST 03/28/2020 3:57 AM EST Davian Carolina MD POINT OF CARE TEST ORDERABLES Performing Organization Address [facility] Co de Phone Number [facility] [place] [address] * Differential, Automated (03/28/2020 1:45 AM EST) Pathologist [facility] Neutrophils % 69.0 % [facility] Neutr Abs (ANC) 4.74 1.70 - 6.10 x10(3)/[facility] LAB[facility] Lymphocytes % 16.0 % [facility] Lymphocytes Abs 1.1 0.9 - 3.2 x10(3)/[facility] LAB[facility] Monocytes % 10.3 % [facility] Monocyte Abs 0.7 0.3 - 0.9 x10(3)/[facility] Eosinophils % 4.1 % [facility] Eosinophils Abs 0.3 0.0 - 0.4 x10(3)/[facility] LAB[facility] Basophils % 0.3 % [facility] Basophils Abs 0.0 0.0 - 0.1 x10(3)/[facility] Immature Gran % 0.30 % [facility] Comment: Immature granulocytes(IG's)percentage and absolute count will include metamyelocytes, myelocytes, and promyelocytes. Blood smears from CBCs yielding IG's will be scanned manually for concordance. If this scan disagrees with the automated IG or if promyelocytes are noted, a manual differential will be performed. Nory Gran Abs 0.02 0.00 - 0.04 x10(3)/[facility] LAB[facility] Blood specimen (specimen) 03/28/2020 1:45 AM EST 03/28/2020 1:52 AM EST Narrative Resulting Agency Comment Spec In Lab Anjelica Jordan APRN HEMATOLOGY ORDER MAGAN [facility] [place] [address] * (ABNORMAL) Hemogram (03/28/2020 1:45 AM EST) WBC 6.9 4.0 - 9.5 x10(3)/[facility] LAB[facility] RBC 3.68(L) 4.00 - 5.21 x10(6)/[facility] LAB[facility] Hemoglobin 11.3(L) 11.7 - 15.5 gm/dL [facility] Hematocrit 33.4(L) 35.7 - 45.8 % [facility] MCV 90.8 82.6 - 94.4 fL [facility] MCH 30.7 27.1 - 32.0 pg [facility] MCHC 33.8 31.7 - 35.0 gm/dL [facility] Platelets 205 145 - 357 x10(3)/[facility] LABORATORY RDWSD 40.5 37.0 - 46.0 [facility] LABORATORY RDWCV 12.1 11.5 - 14.1 % [facility] MPV 10.0 7.6 - 12.9 [facility] LABORATORY nRBC % Auto 0.0 % [facility] nRBC Abs Auto 0.000 0.000 - 0.000 x10(3)/[facility] LAB[facility] Blood specimen (specimen) 03/28/2020 1:45 AM EST 03/28/2020 1:52 AM EST Narrative Resulting Agency Comment Spec In Lab Anjelica Jordan APRN HEMATOLOGY ORDER MAGAN Performing Organization Address City/State/[facility] Co de Phone Number [facility] [place] [phone] * (ABNORMAL) BMP w/fasting Glucose (03/28/2020 1:45 AM EST) Glucose Fasting 165(H) 65 - 99 mg/dL [facility] Comment: ?Fasting* Glucose Interpretive Criteria Normal [...] of Diabetes Mellitus, Position Statement from the [place] [employer]. ??Diabetes Care, Volume 33, Supplement 1, Apr 2009 BUN 17 8 - 18 mg/dL [facility] Creatinine 0.46(L) 0.70 - 1.20 mg/dL [facility] Sodium 139 135 - 145 mmol/L [facility] Potassium 3.7 3.5 - 5.0 mmol/L [facility] Comment: Please note: ??Patients with WBC >100,000 may have falsely elevated Potassium levels. ??For accurate Potassium quantification in these patients send serum separator tube (gold top) for subsequent determinations. ??Contact the Clinical Chemistry Laboratory if there are any questions. Chloride 103 98 - 107 mmol/L [facility] CO2 27 22 - 31 mmol/L [facility] Anion Gap 9 5 - 15 mmol/L [facility] Calcium 8.4(L) 8.5 - 10.5 mg/dL [facility] Estimated GFR 99 >=60 mL/min/1. 73 m?? [facility] Comment: This patient? s estimated glomerular [...] Lab Davian Carolina MD CHEMISTRY ORDERABL ES [facility] [place] [address] * Phosphorus (03/28/2020 1:45 AM EST) Phosphorus 2.9 2.5 - 4.5 mg/dL [facility] Blood specimen (specimen) 03/28/2020 1:45 AM EST 03/28/2020 1:52 AM EST Narrative Resulting Agency Comment Spec In Lab Anjelica Jordan NUCLEAR STATION OPERATOR CHEMISTRY ORDERA BLES Performing Organization Address [facility] de Phone Number [facility] [place] [address] * Magnesium (03/28/2020 1:45 AM EST) Magnesium 0.87 0.69 - 1.07 mmol/L [facility] Blood specimen (specimen) 03/28/2020 1:45 AM EST 03/28/2020 1:52 AM EST Narrative Resulting Agency Comment Spec In Lab Anjelica Jordan APRN CHEMISTRY ORDERA BLES Performing Organization Address [facility] de Phone Number [facility] [place] [address] * (ABNORMAL) Amylase (03/28/2020 1:45 AM EST) Amylase 18(L) 28 - 100 unit/L [facility] Blood specimen (specimen) 03/28/2020 1:45 AM EST 03/28/2020 1:52 AM EST Narrative Resulting Agency Comment Spec In Lab Anjelica Jordan APRN CHEMISTRY ORDERA BLES Performing Organization Address [facility] Phone Number [facility] [place] [address] * POCT Glucose (03/28/2020 12:03 AM EST) POC Glucose 157 65 - 199 mg/dL [facility] Comment: Supplemental ranges: <140 mg/dL before meals <180 mg/dL all other times of the day Blood specimen (specimen) 03/28/2020 12:03 AM EST 03/28/2020 12:03 AM EST Davian Carolina MD POINT OF CARE TEST ORDERABLES [facility] [place] [address] * POCT Glucose (03/27/2020 8:06 PM EST) POC Glucose 84 65 - 199 mg/dL [facility] Comment: Supplemental ranges: <140 mg/dL before meals <180 mg/dL all other times of the day Blood specimen (specimen) 03/27/2020 8:06 PM EST 03/27/2020 8:06 PM EST Davian Carolina MD POINT OF CARE TEST ORDERABLES [facility] [place] [address] * POCT Glucose (03/27/2020 4:16 PM EST) POC Glucose 190 65 - 199 mg/dL [facility] Comment: Supplemental ranges: <140 mg/dL before meals <180 mg/dL all other times of the day Blood specimen (specimen) 03/27/2020 4:16 PM EST 03/27/2020 4:16 PM EST Davian Carolina MD POINT OF CARE TEST ORDERABLES [facility] [place] [address] * POCT Glucose (03/27/2020 11:28 AM EST) POC Glucose 92 65 - 199 mg/dL [facility] Comment: Supplemental ranges: <140 mg/dL before meals <180 mg/dL all other times of the day Blood specimen (specimen) 03/27/2020 11:28 AM EST 03/27/2020 11:28 AM EST Davian Carolina MD POINT OF CARE TEST ORDERABLES [facility] [place] [address] * POCT Glucose (03/27/2020 7:52 AM EST) POC Glucose 71 65 - 199 mg/dL [facility] Comment: Supplemental ranges: <140 mg/dL before meals <180 mg/dL all other times of the day Blood specimen (specimen) 03/27/2020 7:52 AM EST 03/27/2020 7:52 AM EST Davian Carolina MD POINT OF CARE TEST ORDERABLES Performing Organization Address [facility] Co de Phone Number [facility] [place] [address] * POCT Glucose (03/27/2020 4:12 AM EST) POC Glucose 74 65 - 199 mg/dL [facility] Comment: Supplemental ranges: <140 mg/dL before meals <180 mg/dL all other times of the day Blood specimen (specimen) 03/27/2020 4:12 AM EST 03/27/2020 4:12 AM EST Davian Carolina MD POINT OF CARE TEST ORDERABLES Performing Organization Address [facility] Phone Number [facility] [place] [address] * Amylase Level Body Fluid KHRIS Drain (03/27/2020 3:28 AM EST) Amylase, BF 327 unit/L [facility] Comment: No reference range is available for the specimen type submitted. ??The performance of this assay for the submitted type has not been validated and results should be interpreted accordingly and with regard to the patient's clinical status. Amylase BF Type KHRIS Drain [facility] KHRIS Drain 03/27/2020 3:28 AM EST 03/27/2020 5:32 AM EST Narrative Resulting Agency Comment Spec In Lab Davian Carolina MD BODY FLUIDS AND ST OOLS ORDERABLES Performing Organization Address [facility] Co [place] [address] * Differential, Automated (03/27/2020 3:20 AM EST) Neutrophils % 66.9 % [facility] Neutr Abs (ANC) 5.08 1.70 - 6.10 x10(3)/[facility] LABOR[facility] Lymphocytes % 18.2 % [facility] Lymphocytes Abs 1.4 0.9 - 3.2 x10(3)/[facility] LAB[facility] Monocytes % 9.5 % [facility] Monocyte Abs 0.7 0.3 - 0.9 x10(3)/[facility] LAB[facility] Eosinophils % 4.6 % [facility] Eosinophils Abs 0.4 0.0 - 0.4 x10(3)/[facility] LAB[facility] Basophils % 0.5 % [facility] Basophils Abs 0.0 0.0 - 0.1 x10(3)/[facility] LABOR[facility] Immature Gran % 0.30 % [facility] Comment: Immature granulocytes(IG's)percentage and absolute count will include metamyelocytes, myelocytes, and promyelocytes. Blood smears from CBCs yielding IG's will be scanned manually for concordance. If this scan disagrees with the automated IG or if promyelocytes are noted, a manual differential will be performed. Nory Gran Abs 0.02 0.00 - 0.04 x10(3)/[facility] LABORAT[facility] Blood specimen (specimen) 03/27/2020 3:20 AM EST 03/27/2020 3:35 AM EST Narrative Resulting Agency Comment Spec In Lab Anjelica Jordan APRN HEMATOLOGY ORDER MAGAN [facility] [place] [address] * (ABNORMAL) Hemogram (03/27/2020 3:20 AM EST) WBC 7.6 4.0 - 9.5 x10(3)/[facility] LABORAT[facility] RBC 3.82(L) 4.00 - 5.21 x10(6)/[facility] LAB[facility] Hemoglobin 11.7 11.7 - 15.5 gm/dL [facility] Hematocrit 35.5(L) 35.7 - 45.8 % [facility] MCV 92.9 82.6 - 94.4 fL [facility] MCH 30.6 27.1 - 32.0 pg [facility] MCHC 33.0 31.7 - 35.0 gm/dL [facility] Platelets 198 145 - 357 x10(3)/[facility] LAB[facility] RDWSD 42.6 37.0 - 46.0 fL [facility] RDWCV 12.5 11.5 - 14.1 % [facility] MPV 10.1 7.6 - 12.9 fL [facility] nRBC % Auto 0.0 % [facility] nRBC Abs Auto 0.000 0.000 - 0.000 x10(3)/[facility] LAB[facility] Blood specimen (specimen) 03/27/2020 3:20 AM EST 03/27/2020 3:35 AM EST Narrative Resulting Agency Comment Spec In Lab Anjelica Jordan NUCLEAR STATION OPERATOR HEMATOLOGY ORDER MAGAN Performing Organization Address [facility] [place] [address] * Phosphorus (03/27/2020 3:20 AM EST) Phosphorus 3.1 2.5 - 4.5 mg/dL [facility] Blood specimen (specimen) 03/27/2020 3:20 AM EST 03/27/2020 3:35 AM EST Narrative Resulting Agency Comment Spec In Lab Anjelica Jordan NUCLEAR STATION OPERATOR CHEMISTRY ORDERA BLES Performing Organization Address [facility] Co de Phone Number [facility] [place] [address] * Magnesium (03/27/2020 3:20 AM EST) Magnesium 0.87 0.69 - 1.07 mmol/L [facility] Blood specimen (specimen) 03/27/2020 3:20 AM EST 03/27/2020 3:35 AM EST Narrative Resulting Agency Comment Spec In Lab Anjelica Jordan APRN CHEMISTRY ORDERA BLES [facility] [place] [address] * (ABNORMAL) Comprehensive metabolic panel (non-fasting) (03/27/2020 3:20 AM EST) Glucose Lvl 73 65 - 199 mg/dL [facility] Comment:Diabetes: >=200 mg/d L plus symptoms BUN 12 8 - 18 mg/dL [facility] Comment:result rechecked-bm Creatinine 0.49(L) 0.70 - 1.20 mg/dL [facility] Sodium 139 135 - 145 mmol/L [facility] Potassium 3.8 3.5 - 5.0 mmol/L [facility] Comment: Please note: ??Patients with WBC >100,000 may have falsely elevated Potassium levels. ??For accurate Potassium quantification in these patients send serum separator tube (gold top) for subsequent determinations. ??Contact the Clinical Chemistry Laboratory if there are any questions. Chloride 101 98 - 107 mmol/L [facility] CO2 27 22 - 31 mmol/L [facility] Anion Gap 11 5 - 15 mmol/L [facility] Calcium 8.5 8.5 - 10.5 mg/dL [facility] Total Protein 5.4(L) 6.1 - 8.0 gm/dL [facility] Albumin 3.2 3.2 - 5.2 gm/dL [facility] AST 77(H) 0 - 30 unit/L [facility] ALT 160(H) 0 - 30 unit/L [facility] Alk Phos 58 35 - 105 unit/L [facility] Total Bilirubin 0.4 0.2 - 1.3 mg/dL [facility] Estimated GFR 97 >=60 mL/min/1. 73 m?? [facility] Comment: This patient? s estimated glomerular [...] Agency Comment Spec In Lab Anjelica Jordan NUCLEAR STATION OPERATOR CHEMISTRY ORDERA BLES Performing Organization Address [facility] Co de Phone Number [facility] [place] [address] * (ABNORMAL) Amylase (03/27/2020 3:20 AM EST) Amylase 25(L) 28 - 100 unit/L [facility] Blood specimen (specimen) 03/27/2020 3:20 AM EST 03/27/2020 3:35 AM EST Narrative Resulting Agency Comment Spec In Lab Anjelica Jordan NUCLEAR STATION OPERATOR CHEMISTRY ORDERA BLES Performing Organization Address [facility] Co de Phone Number [facility] [place] [address] * POCT Glucose (03/27/2020 3:19 AM EST) POC Glucose 73 65 - 199 mg/dL [facility] Comment: Supplemental ranges: <140 mg/dL before meals <180 mg/dL all other times of the day Blood specimen (specimen) 03/27/2020 3:19 AM EST 03/27/2020 3:19 AM EST Davian Carolina MD POINT OF CARE TEST ORDERABLES [facility] [place] [address] * POCT Glucose (03/27/2020 12:03 AM EST) POC Glucose 93 65 - 199 mg/dL [facility] Comment: Supplemental ranges: <140 mg/dL before meals <180 mg/dL all other times of the day Blood specimen (specimen) 03/27/2020 12:03 AM EST 03/27/2020 12:03 AM EST Davian Carolina MD POINT OF CARE TEST ORDERABLES Performing Organization Address City/[facility]/ZIP Co de Phone Number [facility] [place] [address] * POCT Glucose (03/26/2020 9:10 PM EST) POC Glucose 96 65 - 199 mg/dL [facility] Comment: Supplemental ranges: <140 mg/dL before meals <180 mg/dL all other times of the day Blood specimen (specimen) 03/26/2020 9:10 PM EST 03/26/2020 9:10 PM EST Davian Carolina MD POINT OF CARE TEST ORDERABLES [facility] [place] [address] * POCT Glucose (03/26/2020 7:52 PM EST) POC Glucose 74 65 - 199 mg/dL [facility] Comment: Supplemental ranges: <140 mg/dL before meals <180 mg/dL all other times of the day Blood specimen (specimen) 03/26/2020 7:52 PM EST 03/26/2020 7:52 PM EST Davian Carolina MD POINT OF CARE TEST ORDERABLES Performing Organization Address [facility] Co de Phone Number [facility] [place] [address] * POCT Glucose (03/26/2020 3:59 PM EST) POC Glucose 87 65 - 199 mg/dL [facility] Comment: Supplemental ranges: <140 mg/dL before meals <180 mg/dL all other times of the day Blood specimen (specimen) 03/26/2020 3:59 PM EST 03/26/2020 3:59 PM EST Davian Carolina MD POINT OF CARE TEST ORDERABLES Performing Organization Address [facility] Co de Phone Number [facility] [place] [address] * POCT Glucose (03/26/2020 11:39 AM EST) POC Glucose 87 65 - 199 mg/dL [facility] Comment: Supplemental ranges: <140 mg/dL before meals <180 mg/dL all other times of the day Blood specimen (specimen) 03/26/2020 11:39 AM EST 03/26/2020 11:39 AM EST Davian Carolina MD POINT OF CARE TEST ORDERABLES Performing Organization Address [facility] de Phone Number [facility] [place] [address] * CT Angiogram Abdomen w Contrast (03/26/2020 [...] signed by: Raimundo Mccurdy MD, [facility] ([phone]), at 03/26/2020 11:23 AM Narrative 03/26/2020 11:23 [...] signed by: Raimundo Mccurdy MD, [facility]([phone]), at 03/26/2020 11:23 AM Davian Carolina MD IMG CT ORDERABLES * POCT Glucose (03/26/2020 7:32 AM EST) POC Glucose 109 65 - 199 mg/dL [facility] Comment: Supplemental ranges: <140 mg/dL before meals <180 mg/dL all other times of the day Blood specimen (specimen) 03/26/2020 7:32 AM EST 03/26/2020 7:32 AM EST Davian Carolina MD POINT OF CARE TEST ORDERABLES Performing Organization Address [facility] Co de Phone Number [facility] [place] [address] * POCT Glucose (03/26/2020 3:16 AM EST) Pathologist [facility] POC Glucose 134 65 - 199 mg/dL [facility] Comment: Supplemental ranges: <140 mg/dL before meals <180 mg/dL all other times of the day Blood specimen (specimen) 03/26/2020 3:16 AM EST 03/26/2020 3:16 AM EST Davian Carolina MD POINT OF CARE TEST ORDERABLES Performing Organization Address City/[facility]/ZIP Co de Phone Number [facility] [place] [address] * (ABNORMAL) Differential, Automated (03/26/2020 1:45 AM EST) Neutrophils % 79.2 % [facility] Neutr Abs (ANC) 7.42(H) 1.70 - 6.10 x10(3)/mc L [facility] Lymphocytes % 11.3 % [facility] Lymphocytes Abs 1.1 0.9 - 3.2 x10(3)/mc L [facility] Monocytes % 8.3 % [facility] Monocyte Abs 0.8 0.3 - 0.9 x10(3)/[facility] LABOR[facility] Eosinophils % 0.6 % [facility] Eosinophils Abs 0.1 0.0 - 0.4 x10(3)/[facility] Basophils % 0.3 % [facility] Basophils Abs 0.0 0.0 - 0.1 x10(3)/[facility] LABOR[facility] Immature Gran % 0.30 % [facility] Comment: Immature granulocytes(IG's)percentage and absolute count will include metamyelocytes, myelocytes, and promyelocytes. Blood smears from CBCs yielding IG's will be scanned manually for concordance. If this scan disagrees with the automated IG or if promyelocytes are noted, a manual differential will be performed. Nory Gran Abs 0.03 0.00 - 0.04 x10(3)/[facility] LAB[facility] Blood specimen (specimen) 03/26/2020 1:45 AM EST 03/26/2020 1:56 AM EST Narrative Resulting Agency Comment Spec In Lab Anjelica Jordan APRN HEMATOLOGY ORDER MAGAN [facility] [place] [address] * (ABNORMAL) Hemogram (03/26/2020 1:45 AM EST) WBC 9.4 4.0 - 9.5 x10(3)/[facility] LAB[facility] RBC 3.74(L) 4.00 - 5.21 x10(6)/[facility] Hemoglobin 11.4(L) 11.7 - 15.5 gm/dL [facility] Hematocrit 34.3(L) 35.7 - 45.8 % [facility] MCV 91.7 82.6 - 94.4 fL [facility] MCH 30.5 27.1 - 32.0 pg [facility] MCHC 33.2 31.7 - 35.0 gm/dL [facility] Platelets 168 145 - 357 x10(3)/[facility] RDWSD 42.4 37.0 - 46.0 fL [facility] RDWCV 12.6 11.5 - 14.1 % [facility] MPV 10.2 7.6 - 12.9 fL [facility] nRBC % Auto 0.0 % [facility] nRBC Abs Auto 0.000 0.000 - 0.000 x10(3)/[facility] Blood specimen (specimen) 03/26/2020 1:45 AM EST 03/26/2020 1:56 AM EST Narrative Resulting Agency Comment Spec In Lab Anjelica Jordan NUCLEAR STATION OPERATOR HEMATOLOGY ORDER MAGAN Performing Organization Address City/[facility]/ZIP Co de Phone Number [facility] [place] [address] * (ABNORMAL) Phosphorus (03/26/2020 1:45 AM EST) Phosphorus 2.3(L) 2.5 - 4.5 mg/dL [facility] Blood specimen (specimen) 03/26/2020 1:45 AM EST 03/26/2020 1:56 AM EST Narrative Resulting Agency Comment Spec In Lab Anjelica Jordan APRN CHEMISTRY ORDERA BLES Performing Organization Address City/[facility]/ZIP Co de Phone Number [facility] [place] [address] * Magnesium (03/26/2020 1:45 AM EST) Magnesium 0.82 0.69 - 1.07 mmol/L [facility] Blood specimen (specimen) 03/26/2020 1:45 AM EST 03/26/2020 1:56 AM EST Narrative Resulting Agency Comment Spec In Lab Anjelica Jordan JESUS ALBERTO CHEMISTRY ORDERA BLES [facility] [place] [address] * (ABNORMAL) Comprehensive metabolic panel (non-fasting) (03/26/2020 1:45 AM EST) Glucose Lvl 131 65 - 199 mg/dL [facility] Comment:Diabetes: >=200 mg/d L plus symptoms BUN 6(L) 8 - 18 mg/dL [facility] Creatinine 0.54(L) 0.70 - 1.20 mg/dL [facility] Sodium 139 135 - 145 mmol/L [facility] Potassium 3.4(L) 3.5 - 5.0 mmol/L [facility] Comment: Please note: ??Patients with WBC >100,000 may have falsely elevated Potassium levels. ??For accurate Potassium quantification in these patients send serum separator tube (gold top) for subsequent determinations. ??Contact the Clinical Chemistry Laboratory if there are any questions. Chloride 98 98 - 107 mmol/L [facility] CO2 29 22 - 31 mmol/L [facility] Anion Gap 12 5 - 15 mmol/L [facility] Calcium 8.6 8.5 - 10.5 mg/dL [facility] Total Protein 5.5(L) 6.1 - 8.0 gm/dL [facility] Albumin 3.3 3.2 - 5.2 gm/dL [facility] AST 166(H) 0 - 30 unit/L [facility] ALT 240(H) 0 - 30 unit/L [facility] Alk Phos 60 35 - 105 unit/L [facility] Total Bilirubin 0.6 0.2 - 1.3 mg/dL [facility] Estimated GFR 94 >=60 mL/min/1. 73 m?? [facility] Comment: This patient? s estimated glomerular [...] Agency Comment Spec In Lab Anjelica Jordan NUCLEAR STATION OPERATOR CHEMISTRY ORDERA BLES Performing Organization Address City/[facility]/ZIP Co de Phone Number [facility] [place] [address] * (ABNORMAL) Amylase (03/26/2020 1:45 AM EST) Amylase 22(L) 28 - 100 unit/L [facility] Blood specimen (specimen) 03/26/2020 1:45 AM EST 03/26/2020 1:56 AM EST Narrative Resulting Agency Comment Spec In Lab Anjelica Lissa Nikki NUCLEAR STATION OPERATOR CHEMISTRY ORDERA BLES Performing Organization Address [facility]/ZIP Co de Phone Number [facility] [place] [address] * Amylase Level Body Fluid KHRIS Drain (03/26/2020 1:36 AM EST) Amylase, BF 15 unit/L [facility] Comment: No reference range is available for the specimen type submitted. ??The performance of this assay for the submitted type has not been validated and results should be interpreted accordingly and with regard to the patient's clinical status. Amylase BF Type KHRIS Drain [facility] KHRIS Drain 03/26/2020 1:36 AM EST 03/26/2020 1:58 AM EST Narrative Resulting Agency Comment Spec In Lab Davian Carolina MD BODY FLUIDS AND ST OOLS ORDERABLES Performing Organization Address [facility] Co de Phone Number [facility] [place] [address] * POCT Glucose (03/25/2020 11:11 PM EST) POC Glucose 128 65 - 199 mg/dL [facility] Comment: Supplemental ranges: <140 mg/dL before meals <180 mg/dL all other times of the day Blood specimen (specimen) 03/25/2020 11:11 PM EST 03/25/2020 11:11 PM EST Davian Carolina MD POINT OF CARE TEST ORDERABLES Performing Organization Address [facility] Co de Phone Number [facility] [place] [address] * POCT Glucose (03/25/2020 7:53 PM EST) POC Glucose 142 65 - 199 mg/dL [facility] Comment: Supplemental ranges: <140 mg/dL before meals <180 mg/dL all other times of the day Blood specimen (specimen) 03/25/2020 7:53 PM EST 03/25/2020 7:53 PM EST Davian Carolina MD POINT OF CARE TEST ORDERABLES Performing Organization Address [facility] Co de Phone Number [facility] [place] [address] * POCT Glucose (03/25/2020 4:23 PM EST) POC Glucose 149 65 - 199 mg/dL [facility] Comment: Supplemental ranges: <140 mg/dL before meals <180 mg/dL all other times of the day Blood specimen (specimen) 03/25/2020 4:23 PM EST 03/25/2020 4:23 PM EST Davian Carolina MD POINT OF CARE TEST ORDERABLES Performing Organization Address [facility] Co de Phone Number [facility] [place] [address] * POCT Glucose (03/25/2020 12:36 PM EST) POC Glucose 132 65 - 199 mg/dL [facility] Comment: Supplemental ranges: <140 mg/dL before meals <180 mg/dL all other times of the day Blood specimen (specimen) 03/25/2020 12:36 PM EST 03/25/2020 12:36 PM EST Davian Carolina MD POINT OF CARE TEST ORDERABLES Performing Organization Address [facility] Co de Phone Number [facility] [place] [address] * (ABNORMAL) Urinalysis Microscopic Exam (03/25/2020 10:21 AM EST) RBC UA 5(H) 0 - 4 /HPF [facility] WBC UA 3 0 - 5 /HPF [facility] Squam Epith UA 1 <=4 /HPF [facility] Hyaline Cast UA 8(H) 0 - 2 /LPF [facility] Urine specimen obtained via indwelling urinary catheter (specimen) 03/25/2020 10:21 AM EST 03/25/2020 11:31 AM EST Narrative Resulting Agency Comment Spec In Lab Anjelica Jordan APRN URINE ORDERABLES Performing Organization Address [facility] Co de Phone Number [facility] [place] [address] * (ABNORMAL) Urinalysis with reflex Culture (03/25/2020 10:21 AM EST) Glucose UA Negative Negative mg/dL [facility] Protein UA Negative Negative mg/dL [facility] Bilirubin UA Negative Negative mg/dL [facility] Comment: Clinical correlation required for positive Urine Bilirubin results as false positive may occur with some drugs and drug related products. If a false positive is suspected a serum total bilirubin should be considered if clinically indicated. Urobilinogen UA Normal Normal mg/dL [facility] pH UA 5.5 5.0 - 8.0 [facility] Blood UA Negative Negative mg/dL [facility] Ketones UA >=80(Critic al) Negative mg/dL [facility] Comment: Urinalysis result NOT critical without a combination of Glucose greater than or equal to 500 mg/dL AND Ketones greater than or equal to 80 mg/dL Nitrite UA Negative Negative [facility] Leukocytes UA Trace(A) Negative [facility] Appearance UA Clear Clear [facility] Spec Dawson UA 1.016 1.006 - 1.030 [facility] Color UA Yellow Yellow [facility] Culture Reflexed No [facility] Urine specimen obtained via indwelling urinary catheter (specimen) 03/25/2020 10:21 AM EST 03/25/2020 11:31 AM EST Narrative Resulting Agency Comment Spec In Lab Anjelica Jordan APRN URINE ORDERABLES [facility] [place] [address] * POCT Glucose (03/25/2020 7:50 AM EST) POC Glucose 114 65 - 199 mg/dL [facility] Comment: Supplemental ranges: <140 mg/dL before meals <180 mg/dL all other times of the day Blood specimen (specimen) 03/25/2020 7:50 AM EST 03/25/2020 7:50 AM EST Davian Carolina MD POINT OF CARE TEST ORDERABLES [facility] [place] [address] * POCT Glucose (03/25/2020 4:06 AM EST) POC Glucose 108 65 - 199 mg/dL [facility] Comment: Supplemental ranges: <140 mg/dL before meals <180 mg/dL all other times of the day Blood specimen (specimen) 03/25/2020 4:06 AM EST 03/25/2020 4:06 AM EST Davian Carolina MD POINT OF CARE TEST ORDERABLES Performing Organization Address [facility] Phone Number [facility] [place] [address] * Amylase Level Body Fluid KHRIS Drain (03/25/2020 3:53 AM EST) Amylase, BF 22 unit/L [facility] Comment: No reference range is available for the specimen type submitted. ??The performance of this assay for the submitted type has not been validated and results should be interpreted accordingly and with regard to the patient's clinical status. Amylase BF Type KHRIS Drain [facility] KHRIS Drain 03/25/2020 3:53 AM EST 03/25/2020 4:14 AM EST Narrative Resulting Agency Comment Spec In Lab Davian Carolina MD BODY FLUIDS AND ST OOLS ORDERABLES Performing Organization Address [facility] Phone Number [facility] [place] [address] * (ABNORMAL) Differential, Automated (03/25/2020 1:55 AM EST) Neutrophils % 82.1 % [facility] Neutr Abs (ANC) 11.43(H) 1.70 - 6.10 x10(3)/mc L [facility] Lymphocytes % 10.1 % [facility] Lymphocytes Abs 1.4 0.9 - 3.2 x10(3)/mc L [facility] Monocytes % 6.9 % [facility] Monocyte Abs 1.0(H) 0.3 - 0.9 x10(3)/mc L [facility] Eosinophils % 0.3 % [facility] Eosinophils Abs 0.0 0.0 - 0.4 x10(3)/[facility] Basophils % 0.2 % [facility] Basophils Abs 0.0 0.0 - 0.1 x10(3)/[facility] LABOR[facility] Immature Gran % 0.40 % [facility] Comment: Immature granulocytes(IG's)percentage and absolute count will include metamyelocytes, myelocytes, and promyelocytes. Blood smears from CBCs yielding IG's will be scanned manually for concordance. If this scan disagrees with the automated IG or if promyelocytes are noted, a manual differential will be performed. Nory Gran Abs 0.06(H) 0.00 - 0.04 x10(3)/[facility] LAB[facility] Blood specimen (specimen) 03/25/2020 1:55 AM EST 03/25/2020 2:04 AM EST Narrative Resulting Agency Comment Spec In Lab Anjelica Jordan APRN HEMATOLOGY ORDER MAGAN [facility] [place] [address] * (ABNORMAL) Hemogram (03/25/2020 1:55 AM EST) WBC 13.9(H) 4.0 - 9.5 x10(3)/[facility] LAB[facility] RBC 3.65(L) 4.00 - 5.21 x10(6)/[facility] Hemoglobin 11.2(L) 11.7 - 15.5 gm/dL [facility] Hematocrit 33.5(L) 35.7 - 45.8 % [facility] MCV 91.8 82.6 - 94.4 fL [facility] MCH 30.7 27.1 - 32.0 pg [facility] MCHC 33.4 31.7 - 35.0 gm/dL [facility] Platelets 203 145 - 357 x10(3)/[facility] RDWSD 42.5 37.0 - 46.0 fL [facility] RDWCV 12.7 11.5 - 14.1 % [facility] MPV 9.9 7.6 - 12.9 fL [facility] nRBC % Auto 0.0 % [facility] nRBC Abs Auto 0.000 0.000 - 0.000 x10(3)/mcL [facility] Blood specimen (specimen) 03/25/2020 1:55 AM EST 03/25/2020 2:04 AM EST Narrative Resulting Agency Comment Spec In Lab Anjelica Jordan APRN HEMATOLOGY ORDER MAGAN Performing Organization Address [facility] Co de Phone Number [facility] [place] [address] * (ABNORMAL) Phosphorus (03/25/2020 1:55 AM EST) Phosphorus 1.6(L) 2.5 - 4.5 mg/dL [facility] Blood specimen (specimen) 03/25/2020 1:55 AM EST 03/25/2020 2:04 AM EST Narrative Resulting Agency Comment Spec In Lab Anjelica Jordan APRN CHEMISTRY ORDERA BLES Performing Organization Address [facility] Co de Phone Number [facility] [place] [address] * Magnesium (03/25/2020 1:55 AM EST) Magnesium 0.78 0.69 - 1.07 mmol/L [facility] Blood specimen (specimen) 03/25/2020 1:55 AM EST 03/25/2020 2:04 AM EST Narrative Resulting Agency Comment Spec In Lab Anjelica Jordan NUCLEAR STATION OPERATOR CHEMISTRY ORDERA BLES Performing Organization Address [facility] Co de Phone Number [facility] [place] [address] * (ABNORMAL) Comprehensive metabolic panel (non-fasting) (03/25/2020 1:55 AM EST) Glucose Lvl 116 65 - 199 mg/dL [facility] Comment:Diabetes: >=200 mg/d L plus symptoms BUN 10 8 - 18 mg/dL [facility] Creatinine 0.48(L) 0.70 - 1.20 mg/dL [facility] Sodium 138 135 - 145 mmol/L [facility] Potassium 3.9 3.5 - 5.0 mmol/L [facility] Comment: Please note: ??Patients with WBC >100,000 may have falsely elevated Potassium levels. ??For accurate Potassium quantification in these patients send serum separator tube (gold top) for subsequent determinations. ??Contact the Clinical Chemistry Laboratory if there are any questions. Chloride 101 98 - 107 mmol/L [facility] CO2 29 22 - 31 mmol/L [facility] Anion Gap 8 5 - 15 mmol/L [facility] Calcium 8.2(L) 8.5 - 10.5 mg/dL [facility] Total Protein 5.2(L) 6.1 - 8.0 gm/dL [facility] Albumin 3.1(L) 3.2 - 5.2 gm/dL [facility] AST 149(H) 0 - 30 unit/L [facility] ALT 170(H) 0 - 30 unit/L [facility] Alk Phos 58 35 - 105 unit/L [facility] Total Bilirubin 0.6 0.2 - 1.3 mg/dL [facility] Estimated GFR 97 >=60 mL/min/1. 73 m?? [facility] Comment: This patient? s estimated glomerular [...] Agency Comment Spec In Lab Anjelica Jordan NUCLEAR STATION OPERATOR CHEMISTRY ORDERA BLES Performing Organization Address [facility]/ZIP Co de Phone Number [facility] [place] [address] * Amylase (03/25/2020 1:55 AM EST) Amylase 31 28 - 100 unit/L [facility] Blood specimen (specimen) 03/25/2020 1:55 AM EST 03/25/2020 2:04 AM EST Narrative Resulting Agency Comment Spec In Lab Anjelica Jordan NUCLEAR STATION OPERATOR CHEMISTRY ORDERA BLES Performing Organization Address [facility] Co de Phone Number [facility] [place] [address] * POCT Glucose (03/24/2020 11:38 PM EST) [facility] POC Glucose 117 65 - 199 mg/dL [facility] Comment: Supplemental ranges: <140 mg/dL before meals <180 mg/dL all other times of the day Blood specimen (specimen) 03/24/2020 11:38 PM EST 03/24/2020 11:38 PM EST Davian Carolina MD POINT OF CARE TEST ORDERABLES Performing Organization Address [facility] Co de Phone Number [facility] [place] [address] * POCT Glucose (03/24/2020 8:17 PM EST) POC Glucose 109 65 - 199 mg/dL [facility] Comment: Supplemental ranges: <140 mg/dL before meals <180 mg/dL all other times of the day Blood specimen (specimen) 03/24/2020 8:17 PM EST 03/24/2020 8:17 PM EST Davian Carolina MD POINT OF CARE TEST ORDERABLES Performing Organization Address [facility] Co de Phone Number [facility] [place] [address] * Potassium (03/24/2020 5:40 PM EST) Potassium 4.1 3.5 - 5.0 mmol/L [facility] Comment: Please note: ??Patients with WBC >100,000 may have falsely elevated Potassium levels. ??For accurate Potassium quantification in these patients send serum separator tube (gold top) for subsequent determinations. ??Contact the Clinical Chemistry Laboratory if there are any questions. Blood specimen (specimen) 03/24/2020 5:40 PM EST 03/24/2020 6:02 PM EST Narrative Resulting Agency Comment Spec In Lab Anjelica Jordan NUCLEAR STATION OPERATOR CHEMISTRY ORDERA BLES Performing Organization Address [facility] de Phone Number [facility] [place] [address] * (ABNORMAL) Aspartate Aminotransferase (03/24/2020 5:40 PM EST) AST 137(H) 0 - 30 unit/L [facility] Blood specimen (specimen) 03/24/2020 5:40 PM EST 03/24/2020 6:02 PM EST Narrative Resulting Agency Comment Spec In Lab Anjelica Jordan NUCLEAR STATION OPERATOR CHEMISTRY ORDERA BLES Performing Organization Address [facility] Co de Phone Number [facility] [place] [address] * POCT Glucose (03/24/2020 5:13 PM EST) POC Glucose 112 65 - 199 mg/dL [facility] Comment: Supplemental ranges: <140 mg/dL before meals <180 mg/dL all other times of the day Blood specimen (specimen) 03/24/2020 5:13 PM EST 03/24/2020 5:13 PM EST Davian Carolina MD POINT OF CARE TEST ORDERABLES [facility] [place] [address] * Place PICC Line: Contact Vascular Access Page [phone] Extremity to exclude: DO NOT use RIGHT [...] to the planned procedure. Hand Hygiene: The video technician did perform hand hygiene prior to line insertion. Catheter type: PICC Lot number: [id number] Procedure Technique: Skin was prepped with chlorhexidine. [...] signed by: Osmani Rhodes MD, [facility] ([phone]), at 03/24/2020 4:54 PM Narrative 03/24/2020 4:54 [...] signed by: Osmani Rhodes MD, [facility]([phone]), at 03/24/2020 4:54 PM Davian Carolina MD IMG FLUORO ORDERAB LES * POCT Glucose (03/24/2020 1:05 PM EST) POC Glucose 113 65 - 199 mg/dL [facility] Comment: Supplemental ranges: <140 mg/dL before meals <180 mg/dL all other times of the day Blood specimen (specimen) 03/24/2020 1:05 PM EST 03/24/2020 1:05 PM EST Davian Carolina MD POINT OF CARE TEST ORDERABLES [facility] [place] [address] * POCT Glucose (03/24/2020 9:28 AM EST) POC Glucose 155 65 - 199 mg/dL [facility] Comment: Supplemental ranges: <140 mg/dL before meals <180 mg/dL all other times of the day Blood specimen (specimen) 03/24/2020 9:28 AM EST 03/24/2020 9:28 AM EST Davian Carolina MD POINT OF CARE TEST ORDERABLES [facility] [place] [address] * (ABNORMAL) Differential, Automated (03/24/2020 8:28 AM EST) Neutrophils % 84.9 % [facility] Neutr Abs (ANC) 13.84(H) 1.70 - 6.10 x10(3)/[facility] LABORAT[facility] Lymphocytes % 6.7 % [facility] Lymphocytes Abs 1.1 0.9 - 3.2 x10(3)/[facility] LABORATORY Monocytes % 7.9 % [facility] Monocyte Abs 1.3(H) 0.3 - 0.9 x10(3)/[facility] LABORATORY Eosinophils % 0.0 % [facility] Eosinophils Abs 0.0 0.0 - 0.4 x10(3)/[facility] LABORATORY Basophils % 0.1 % [facility] Basophils Abs 0.0 0.0 - 0.1 x10(3)/[facility] LABORATORY Immature Gran % 0.40 % [facility] Comment: Immature granulocytes(IG's)percentage and absolute count will include metamyelocytes, myelocytes, and promyelocytes. Blood smears from CBCs yielding IG's will be scanned manually for concordance. If this scan disagrees with the automated IG or if promyelocytes are noted, a manual differential will be performed. Nory Gran Abs 0.07(H) 0.00 - 0.04 x10(3)/ L [facility] Blood specimen (specimen) 03/24/2020 8:28 AM EST 03/24/2020 8:55 AM EST Narrative Resulting Agency Comment Spec In Lab Anjelica Jordan APRN HEMATOLOGY ORDER MAGAN [facility] [place] [address] * (ABNORMAL) Hemogram (03/24/2020 8:28 AM EST) WBC 16.3(H) 4.0 - 9.5 x10(3)/[facility] LABORATORY RBC 3.90(L) 4.00 - 5.21 x10(6)/[facility] LABOR[facility]ORY Hemoglobin 11.7 11.7 - 15.5 gm/dL [facility] Hematocrit 37.0 35.7 - 45.8 % [facility] MCV 94.9(H) 82.6 - 94.4 fL [facility] MCH 30.0 27.1 - 32.0 pg [facility] MCHC 31.6(L) 31.7 - 35.0 gm/dL [facility] Platelets 214 145 - 357 x10(3)/[facility] LABORATORY RDWSD 45.4 37.0 - 46.0 [facility] LABORATORY RDWCV 13.1 11.5 - 14.1 % [facility] MPV 11.0 7.6 - 12.9 [facility] LABORATORY nRBC % Auto 0.0 % [facility] nRBC Abs Auto 0.000 0.000 - 0.000 x10(3)/[facility] LABORATORY Blood specimen (specimen) 03/24/2020 8:28 AM EST 03/24/2020 8:55 AM EST Narrative Resulting Agency Comment Spec In Lab Anjelica Jordan APRN HEMATOLOGY ORDER MAGAN [facility] [place] [address] * (ABNORMAL) Phosphorus (03/24/2020 8:28 AM EST) Phosphorus 4.6(H) 2.5 - 4.5 mg/dL [facility] Blood specimen (specimen) 03/24/2020 8:28 AM EST 03/24/2020 8:55 AM EST Narrative Resulting Agency Comment Spec In Lab Anjelica Jordan NUCLEAR STATION OPERATOR CHEMISTRY ORDERA BLES Performing Organization Address City/[facility] Co de Phone Number [facility] [place] [address] * Magnesium (03/24/2020 8:28 AM EST) Magnesium 1.07 0.69 - 1.07 mmol/L [facility] Comment:result rechecked-mary lou Blood specimen (specimen) 03/24/2020 8:28 AM EST 03/24/2020 8:55 AM EST Narrative Resulting Agency Comment Spec In Lab Anjelica Jordan NUCLEAR STATION OPERATOR CHEMISTRY ORDERA BLES Performing Organization Address [facility] de Phone Number [facility] [place] [address] * (ABNORMAL) Amylase (03/24/2020 8:28 AM EST) Amylase 21(L) 28 - 100 unit/L [facility] Blood specimen (specimen) 03/24/2020 8:28 AM EST 03/24/2020 8:55 AM EST Narrative Resulting Agency Comment Spec In Lab Anjelica E Nikki NUCLEAR STATION OPERATOR CHEMISTRY ORDERA BLES Performing Organization Address [facility] de Phone Number [facility] [place] [address] * (ABNORMAL) CMP w/fasting Glucose (03/24/2020 8:28 AM EST) Glucose Fasting 138(H) 65 - 99 mg/dL [facility] Comment: ?Fasting* Glucose Interpretive Criteria Normal [...] of Diabetes Mellitus, Position Statement from the [place] [employer]. ??Diabetes Care, Volume 33, Supplement 1, Apr 2009 BUN 16 8 - 18 mg/dL [facility] Creatinine 0.77 0.70 - 1.20 mg/dL [facility] Sodium 140 135 - 145 mmol/L [facility] Potassium Not Perf 3.5 - 5.0 [facility] Comment: Unable to quantitate due to [...] questions. Chloride 105 98 - 107 mmol/L [facility] CO2 26 22 - 31 mmol/L [facility] Anion Gap 9 5 - 15 mmol/L [facility] Calcium 8.2(L) 8.5 - 10.5 mg/dL [facility] Total Protein 5.1(L) 6.1 - 8.0 gm/dL [facility] Albumin 3.1(L) 3.2 - 5.2 gm/dL [facility] AST Not Perf 0 - 30 [facility] Comment: Unable to quantitate due to sample hemolysis. ??Sample redraw suggested. Called by: MARY LOU, Read back by: Sanjuanita Mercado, Date/Time:03/24/20 09:48. ALT 168(H) 0 - 30 unit/L [facility] Alk Phos 55 35 - 105 unit/L [facility] Total Bilirubin 0.4 0.2 - 1.3 mg/dL [facility] Estimated GFR 77 >=60 mL/min/1. 73 m?? [facility] Comment: This patient? s estimated glomerular [...] ORDERABL ES Performing Organization Address [facility] Co de Phone Number [facility] [place] [address] * Amylase Level Body Fluid KHRIS Drain (03/24/2020 5:07 AM EST) Amylase, BF 26 unit/L [facility] Comment: No reference range is available for the specimen type submitted. ??The performance of this assay for the submitted type has not been validated and results should be interpreted accordingly and with regard to the patient's clinical status. Amylase BF Type KHRIS Drain [facility] KHRIS Drain 03/24/2020 5:07 AM EST 03/24/2020 5:44 AM EST Narrative Resulting Agency Comment Spec In Lab Davian Carolina MD BODY FLUIDS AND ST OOLS ORDERABLES Performing Organization Address City/[facility]/ZIP Co de Phone Number [facility] [place] [address] * Scan, Peripheral Blood (03/23/2020 6:30 PM EST) Pathologist [facility] Plat Estimate Normal [facility] RBC Morphology Normal [facility] Vacuolated Neut Present [facility] Platelet Clumps Present [facility] Blood specimen (specimen) 03/23/2020 6:30 PM EST 03/23/2020 6:35 PM EST Narrative Resulting Agency Comment Spec In Lab Raj Kang MD HEMATOLOGY ORDERABLE S [facility] [place] [address] * (ABNORMAL) Differential, Automated (03/23/2020 6:30 PM EST) Pathologist [facility] Neutrophils % 90.8 % [facility] Neutr Abs (ANC) 21.25(H) 1.70 - 6.10 x10(3)/mc L [facility] Lymphocytes % 2.9 % [facility] Lymphocytes Abs 0.7(L) 0.9 - 3.2 x10(3)/mc L [facility] Monocytes % 5.6 % [facility] Monocyte Abs 1.3(H) 0.3 - 0.9 x10(3)/mc L [facility] Eosinophils % 0.0 % [facility] Eosinophils Abs 0.0 0.0 - 0.4 x10(3)/mc L [facility] Basophils % 0.3 % [facility] Basophils Abs 0.1 0.0 - 0.1 x10(3)/mc L [facility] Immature Gran % 0.40 % [facility] Comment: Immature granulocytes(IG's)percentage and absolute count will include metamyelocytes, myelocytes, and promyelocytes. Blood smears from CBCs yielding IG's will be scanned manually for concordance. If this scan disagrees with the automated IG or if promyelocytes are noted, a manual differential will be performed. Nory Gran Abs 0.10(H) 0.00 - 0.04 x10(3)/ L [facility] Blood specimen (specimen) 03/23/2020 6:30 PM EST 03/23/2020 6:35 PM EST Narrative Resulting Agency Comment Spec In Lab Raj Kang MD HEMATOLOGY ORDERABLE S [facility] [place] [address] * (ABNORMAL) Hemogram (03/23/2020 6:30 PM EST) WBC 23.4(H) 4.0 - 9.5 x10(3)/[facility] LABORATORY RBC 4.07 4.00 - 5.21 x10(6)/[facility] LABORATORY Hemoglobin 12.2 11.7 - 15.5 gm/dL [facility] Hematocrit 37.9 35.7 - 45.8 % [facility] MCV 93.1 82.6 - 94.4 [facility] LABOR[facility]ORY MCH 30.0 27.1 - 32.0 pg [facility] MCHC 32.2 31.7 - 35.0 gm/dL [facility] Platelets 275 145 - 357 x10(3)/[facility] LABORATORY RDWSD 43.7 37.0 - 46.0 [facility] LABORATORY RDWCV 12.7 11.5 - 14.1 % [facility] MPV 9.8 7.6 - 12.9 [facility] LABORATORY nRBC % Auto 0.0 % [facility] nRBC Abs Auto 0.000 0.000 - 0.000 x10(3)/[facility] LABORATORY Blood specimen (specimen) 03/23/2020 6:30 PM EST 03/23/2020 6:35 PM EST Narrative Resulting Agency Comment Spec In Lab Raj Kang MD HEMATOLOGY ORDERABLE S Performing Organization Address [facility] de Phone Number [facility] [place] [address] * (ABNORMAL) Phosphorus (03/23/2020 6:30 PM EST) Phosphorus 5.1(H) 2.5 - 4.5 mg/dL [facility] Blood specimen (specimen) 03/23/2020 6:30 PM EST 03/23/2020 6:35 PM EST Narrative Resulting Agency Comment Spec In Lab Davian Carolina MD CHEMISTRY ORDERABL ES Performing Organization Address [facility] Phone Number [facility] [place] [address] * Magnesium (03/23/2020 6:30 PM EST) Magnesium 0.69 0.69 - 1.07 mmol/L [facility] Blood specimen (specimen) 03/23/2020 6:30 PM EST 03/23/2020 6:35 PM EST Narrative Resulting Agency Comment Spec In Lab Davian Carolina MD CHEMISTRY ORDERABL ES Performing Organization Address [facility] de Phone Number [facility] [place] [address] * (ABNORMAL) Comprehensive metabolic panel (non-fasting) (03/23/2020 6:30 PM EST) Glucose Lvl 217(H) 65 - 199 mg/dL [facility] Comment:Diabetes: >=200 mg/d L plus symptoms BUN 16 8 - 18 mg/dL [facility] Creatinine 0.88 0.70 - 1.20 mg/dL [facility] Sodium 141 135 - 145 mmol/L [facility] Potassium 4.4 3.5 - 5.0 mmol/L [facility] Comment: Please note: ??Patients with WBC >100,000 may have falsely elevated Potassium levels. ??For accurate Potassium quantification in these patients send serum separator tube (gold top) for subsequent determinations. ??Contact the Clinical Chemistry Laboratory if there are any questions. Chloride 106 98 - 107 mmol/L [facility] CO2 24 22 - 31 mmol/L [facility] Anion Gap 11 5 - 15 mmol/L [facility] Calcium 8.1(L) 8.5 - 10.5 mg/dL [facility] Total Protein 5.2(L) 6.1 - 8.0 gm/dL [facility] Albumin 3.5 3.2 - 5.2 gm/dL [facility] AST 161(H) 0 - 30 unit/L [facility] ALT 178(H) 0 - 30 unit/L [facility] Alk Phos 66 35 - 105 unit/L [facility] Total Bilirubin 1.4(H) 0.2 - 1.3 mg/dL [facility] Estimated GFR 65 >=60 mL/min/1. 73 m?? [facility] Comment: This patient? s estimated glomerular [...] Lab Davian Carolina MD CHEMISTRY ORDERABL ES [facility] [place] [address] * Anaerobic Culture (03/23/2020 1:46 PM EST) Anaerobic Culture No anaerobic organisms isolated [facility] Bile specimen (specimen) 03/23/2020 1:46 PM EST 03/23/2020 2:08 PM EST Comment:BILE CULTURE Narrative Resulting Agency Comment Spec In Lab Davian Carolina MD MICROBIOLOGY - GEN ERAL ORDERABLES Performing Organization Address City/[facility]/[place] [address] * Body Fluid Culture, Aerobic (03/23/2020 1:46 PM EST) Body Fluid Culture No growth [facility] Gram Stain Cytocentrifuge Gram Stain performed Neutrophils seen No microorganisms seen. [facility] Bile specimen (specimen) 03/23/2020 1:46 PM EST 03/23/2020 2:08 PM EST Comment:BILE CULTURE Narrative Resulting Agency Comment Spec In Lab Davian Carolina MD MICROBIOLOGY - GEN ERAL ORDERABLES Performing Organization Address [facility]/ZIP Co de Phone Number [facility] [place] [address] * Specimen to Pathology (03/23/2020 12:44 PM EST) AP Specimen 03/23/2020 12:4 4 PM EST 03/23/2020 12:44 PM EST Narrative [facility] - 03/23/2020 12:44 PM EST Specimen requisition ordered. ??Separate Pathology report to follow Davian Carolina MD PATHOLOGY/CYTOLOGY ORDERABLES Performing Organization Address City/[facility]/[place] [address] * Specimen to Pathology (03/23/2020 12:39 PM EST) AP Specimen 03/23/2020 12:3 9 PM EST 03/23/2020 12:39 PM EST Narrative [facility] - 03/23/2020 12:39 PM EST Specimen requisition ordered. ??Separate Pathology report to follow Davian Carolina MD PATHOLOGY/CYTOLOGY ORDERABLES Performing Organization Address [facility] [place] [address] * Specimen to Pathology (03/23/2020 9:54 AM EST) AP Specimen 03/23/2020 9:54 AM EST 03/23/2020 9:54 AM EST Narrative [facility] - 03/23/2020 9:54 AM EST Specimen requisition ordered. ??Separate Pathology report to follow Davian Carolina MD PATHOLOGY/CYTOLOGY ORDERABLES Performing Organization Address [facility] de Phone Number [facility] [place] [address] * Surgical Pathology Report (03/23/2020 9:25 AM EST) Pathologist [facility] Surgical Pathology Report [id number] ? Location: [facility]; [facility]; A The signing pathologist has (i) examined [...] Burton MD Verified: ??03/30/2020 ?Pathologist Performed at: ??-[facility] Dept. of Pathology, [place], [place] ADDITIONAL STUDIES Whole slide scan: B6,B10 [...] 7 cm ??Lesser Curvature: 5 cm ??Serosa: [place]-aguilar and glistening ??Mucosa: Aguilar-brown and granular with no lesions DUODENUM ??Length/Diameter: 20 x 2.0 cm ??Serosa: [place]-aguilar and glistening ??Mucosa: Aguilar to aguilar-brown and normally folded ??Ampulla of Vater: Pronounced and patent ??Minor papilla: Patent and uninvolved OTHER Lymph nodes: Multiple lymph nodes are identified. Ink Designation: The posterior retroperitoneal margin is inked red. The anterior serosal surface is inked green. Sections/Processin g: The following tissue is submitted for frozen section: Bisected en face pancreatic neck margin. Finance Controller sections in 23 cassettes as follows: ?B1-B2: [...] hepatic margin is inked black Sections/Processin g: Finance Controller sections in 1 cassettes as follows: ?D1: ??cystic duct margin and patient relations representative mucosa. ??laura ?Frozen Section FROZEN SECTION DIAGNOSIS _BFS1,2 Pancreatic neck margin: ?Negative for tumor 03/23/20 13:12 Electronically signed by: ??Hiro Burton MD Verified: ??03/23/2020 ?Pathologist Performed at: ??-[facility] Dept. of Pathology, [place], [place] This intraoperative consultation should be interpreted as a preliminary diagnosis pending review of the entire specimen and special studies, if any. [facility] 03/23/2020 9:25 AM EST Davian Carolina MD PATHOLOGY/CYTOLOGY ORDERABLES Performing Organization Address [facility] Co de Phone Number [facility] [place] [address] * Specimen to Pathology (03/23/2020 9:25 AM EST) AP Specimen 03/23/2020 9:25 AM EST 03/23/2020 9:25 AM EST Narrative [facility] - 03/23/2020 9:25 AM EST Specimen requisition ordered. ??Separate Pathology report to follow Davian Carolina MD PATHOLOGY/CYTOLOGY ORDERABLES Performing Organization Address [facility] Co de Phone Number [facility] [place] [address] * ABORH Recheck Status (03/23/2020 7:24 AM EST) ABORH Type Recheck Completed [facility] Blood specimen (specimen) 03/23/2020 7:24 AM EST 03/23/2020 7:26 AM EST Narrative Resulting Agency Comment Spec In Lab Davian Carolina MD BLOOD BANK LAB ORD ERABLES Performing Organization Address [facility]/ZIP Co de Phone Number [facility] [place] [address] * Antibody screen (03/23/2020 7:24 AM EST) Ab Screen Interp Negative [facility] Expires at [id number] on: 03/26/2020 [facility] Blood specimen (specimen) 03/23/2020 7:24 AM EST 03/23/2020 7:26 AM EST Narrative Resulting Agency Comment Spec In Lab Davian Carolina MD BLOOD BANK LAB ORD ERABLES Performing Organization Address [facility] Co de Phone Number [facility] [place] [address] * ABO/Rh Typing (03/23/2020 7:24 AM EST) ABORH Type A Pos [facility] Blood specimen (specimen) 03/23/2020 7:24 AM EST 03/23/2020 7:26 AM EST Narrative Resulting Agency Comment Spec In Lab Davian Carolina MD BLOOD BANK LAB ORD ERABLES Performing Organization Address [facility] Co de Phone Number [facility] [place] [address] documented in this encounter Visit Diagnoses Not on filedocumented in this encounter Administered Medications Inactive Administered Medications - up to 3 most recent administrations Medication Order MAR Action Action Date Dose Rate Site Adult TPN Central, Intravenous, at 74 mL/hr, CYCLIC, Starting on 04/11/20 at 1800, Until 04/11/20 at 1820, Administer over 18 Hours BUpivacaine (pf) (Marcaine) (2.5 mg/mL) 0.25% injection ONCE PRN, Starting on 03/23/20 at 0908, Until 04/11/20 at 1820, Intra-Operative (Intra-Procedure), Routine Given 03/23/2020 9:08 AM EST 30 mLs 19- Surgical Site carvediloL (Coreg) tablet 3.125 mg 3.125 mg, [...] HOURS, First dose (after last modification) on 03/30/20 at 0900, Until Discontinued, Apply patch(es) for [...] Discontinued, Remove lidocaine 5 %(700 mg/patch) patch [id number] DR (Creon 24) 24,000-76,000 -120,000 unit per [...] Discontinued, Routine 0856 (Given - Provider: Wendy Ruiz, LOS) carvediloL (Coreg) tablet 3.125 mg 3.125 mg, Oral, 2 TIMES DAILY WITH MEALS, First dose on Mon04/09/20 at 1700, Until Discontinued, Routine 1716 (Given - Provider: Wendy Ruiz, LOS) 0911 (Given - Provider: Wendy Ruiz, LOS)1742 (Given - Provider: Wendy Ruiz, LOS) 0812 (Given - Provider: Alanna Kaplan RN) cefTRIAXone (Rocephin) 1 g vial attach to sodium chloride 0.9% 50 mL Mini-Bag Plus (COMPLETED) 1 g, Intravenous, EVERY 24 HOURS, 7 doses, First dose on Mon04/03/20 at 1145, Last dose on Mon04/09/20 at 1145, Administer over 30 Minutes, Indication for (Active or Suspected): Pneumonia ([facility]) 1148 (New Bag - Provider: Wendy Ruiz, LOS)1218 (Stopped - Provider: Wendy Ruiz RN) enoxaparin [...] of > 240 in 2 hours., Routine 56 (Given - Provider: Mervin Grimes RN)040 (Not Given - Provider: Mervin Grimes RN - Reason: Order parameters not met)0856 (Given - Provider: Wendy Ruiz RN)1329 (Given - Provider: Wendy Ruiz, LOS)1716 (Given - Provider: Wendy Ruiz RN)2019 (Given - Provider: Amado Carolina RN) 005 (Given - Provider: Amado Carolina RN)0400 (Not [...] Kaplan, LOS)1200 (Not Given - Provider: Alanna Kaplan RN [...] (Patch Removed - Provider: Jim Lim, LOS) svgihq-dhudzjcx-ekifsvz DR (Creon 24) 24,000-76,000 -120,000 unit per [...] Kaplan, LOS)1205 (Given - Provider: Alanna Kaplan, RN) magnesium sulfate 2 g in sterile [...] Wendy Ruiz RN)1249 (Given - Provider: Wendy Ruiz, LOS)1739 (Given - Provider: Wendy Ruiz RN)2044 (Given - Provider: Jim Lim RN) 0812 (Given - Provider: Alanna Kaplan, LOS)1205 (Given - Provider: Alanna Kaplan, RN) metroNIDAZOLE (Flagyl) 500 mg in sodium [...] RN)2049 (Stopped - Provider: Amado Carolina RN) 0309 (New Bag - Provider: Amado Carolina RN)0339 (Stopped - Provider: Amado Carolina RN) pantoprazole (Protonix) injection 40 mg (CANCELED) 40 mg, Intravenous, 2 TIMES DAILY, First dose on Mon04/01/20 at 2100, Until Discontinued 0856 (Given - Provider: Wendy Ruiz RN)2019 (Given - Provider: Amado Carolina RN) 09 (Given - Provider: Wendy Ruiz RN)2040 (Given - Provider: Jim Lim, LOS) 0813 (Not Given - Provider: Alanna Kaplan, [...] RN)2020 (Given - Provider: Amado Carolina RN) 09 (Given - Provider: Wendy Ruiz RN)2043 (Given [...] 1756, Until 04/11/20 at 0814, Pain, Routine 54 (Given - Provider: Josiah Oakley RN)2040 (Given [...] Routine 0539 (Given - Provider: Mervin Grimes RN)1716 (Given - Provider: Wendy Ruiz, LOS) lidocaine (XYLOCAINE) 10 mg/mL (1 %) injection 3 mg 3 mg (0.3 mL), Subcutaneous, ONCE PRN, 1 dose, Starting on 03/24/20 at 0505, Until 04/11/20 at 1820, for discomfort with PIV insertion, Recovery (Recovery-Hospital Unit), Routine naloxone (Narcan) (0.4 mg/mL) injection 0.2 mg 0.2 mg, Intravenous, EVERY 1 MIN PRN, Starting on Tu03/24/20 at 0505, Until 04/11/20 at 1820, Opioid Reversal, May repeat every 60 seconds to increase respiratory rate. DO NOT exceed 2 mg total dose. Per JOURNEYMAN WIREMAN order., Recovery (Recovery-Hospital Unit), Routine ondansetron (pf) (Zofran) (2 mg/mL) injection 4-8 mg 4-8 mg, Intravenous, EVERY 8 HOURS PRN, Starting on 03/24/20 at 0505, Until 04/11/20 at 1820, Nausea, [...] documented as of this encounter Care Teams Inspector Wreath Relationship Specialty Start Date End Date Zeny James APRN [address] [place] [address] PCP - General Family Medicine 09/23/19 documented as of this encounter
--- OUTSIDE RECORDS SUMMARY | 2023-11-02 02:34 | XMS_ITS | Encounter Summary ---
Author Organization [facility] [place] [address] Care Team Providers Care Armature Bander Name Role Phone Zeny James APRN Primary Care Provider Encounter Details Date Type Department Care Team (Late st Contact Info) Description 03/13/2020 Notes Only [place] [address] Roosevelt Dueñas MD [facility] DR HEMATOLOGY/[place] [address] Social History Tobacco Use Types Packs/Day Years Used Date Smoking Tobacco: Never Smokeless Tobacco: Never Sex and Gender Information Value Date Recorded Sex Assigned at Not on file Gender Identity Not on file Sexual Orientation Not on file documented as of this encounter Progress Notes * Roosevelt Dueñas MD - 03/13/2020 8:23 AM EST I have reviewed the patient's record and given personal and/or family history of cancer she should be seen by genetic counselor. This is scheduled for next week. documented in this encounter Plan of Treatment Upcoming Encounters Date Type Department Care Team (Late st Contact Info) Description 11/02/2023 1:00 PM EDT Office Visit Hematology/Oncology at [address] [phone] Mary Nails APRN [address] [place] [address] DR MEDICAL ONCOLOGY [place], [place] [address] 11/02/2023 1:30 PM EDT Infusion Hematology Oncology at [address] [phone] documented as of this encounter Visit Diagnoses Not on filedocumented in this encounter Care Teams Armature Bander Relationship Specialty Start Date End Date Zeny James APRN [address] [place], [place] [address] PCP - General Family Medicine 09/23/19 documented as of this encounter
--- OUTSIDE RECORDS SUMMARY | 2023-11-02 02:34 | XMS_ITS | Encounter Summary ---
Author Organization [facility] Address [facility] [place] [address] Care Team Providers Care Radiology Ct Technologist Name Role Phone Zeny James APRN Primary Care Provider [phone] Reason for Referral * Physical Therapy (Routine) - Specialty Diagnoses / Procedures Referred By Nir potts Referred To Contact Physical Therapy Diagnoses History of breast cancer Susan Rivera MD [facility] [place] [address] Physical Therapy, Jamal Winn [address] [place] [id number] Referral ID Status Reason Start Date Expiration Date V isits Requested Visits Authorized [id number] Evaluate and Treat 01/14/2020 07/12/2020 12 12 Encounter Details Date Type Department Care Team (Late st Contact Info) Description 01/14/2020 Orders [place] [address] Susan Rivera MD [facility] [place] [address] History of breast cancer (Primary Dx) Social History Tobacco Use Types [...] 1:00 PM EDT Office Visit Hematology/Oncology at [address] [phone] Mary Nails APRN [address] [place] [address] MEDICAL ONCOLOGY [place], [place] [address] 11/02/2023 1:30 PM EDT Infusion Hematology Oncology at [address] [phone] Scheduled Referrals Name Type Priority Associated Diagnoses Orde r Schedule Referral to Physical Therapy Outpatient Referral Routine History of breast cancer Ordered: 01/14/2020 documented as of this encounter Visit Diagnoses Diagnosis History of breast cancer- Primary Personal history of malignant neoplasm of breast documented in this encounter Care Teams Radiology Ct Technologist Relationship Specialty Start Date End Date Zeny James APRN [address] [place] [address] PCP - General Family Medicine 09/23/19 documented as of this encounter
--- OUTSIDE RECORDS SUMMARY | 2023-11-02 02:34 | XMS_ITS | Encounter Summary ---
Author Organization [facility] [place] [address] Care Team Providers Care Transplant Nurse Practitioner Name Role Phone Zeny James APRN Primary Care Provider Encounter Details Date Type Department Care Team (Late st Contact Info) Description 12/27/2019 Telephone [place] [phone] Nataly Nash, RN Social History Tobacco Use Types Packs/Day Years Used Date Smoking Tobacco: Never Smokeless Tobacco: Never Sex and Gender Information Value Date Recorded Sex Assigned at Not on file Gender Identity Not on file Sexual Orientation Not on file documented as of this encounter Miscellaneous Notes * Telephone Encounter - Nataly Sesay RN - 12/27/2019 8:50 AM EDTSummary: Can I discontinue my compression bra? Patient is S/P Case Date: 12/20/2019 ?? Surgeon: Surgeon(s) and Role: * Susan Rivera MD - Primary ?? Preoperative diagnosis: BREAST CANCER - left ?? Postoperative diagnosis: BREAST CANCER - left ?? Procedure(s) (LRB): MASTECTOMY, SIMPLE, COMPLETE (WRVU 15.85) (Left) BIOPSY OR EXCISION OF LYMPH NODE(S), OPEN, DEEP AXILLARY NODE(S) (WRVU 6.43) (Left) INTRAOPERATIVE ID (MAPPING) SENTINEL LYMPH NODE,INCLUDES INJECTION (WRVU 2.5) (Left) MODIFIER SENTINEL NODE EXCISION (Left) ? Anesthesia: General Patient phones today to discuss the use of her compression bra. She is post op day 7 and her drain has already been removed. Patient reports no notable swelling on the effected side. She is experiencing a pinching sensation which she attributes to the use of the bra. We discuss discontinuing the bra for a few days and in the event that she experiences swelling she will start using it again. Sheis happy with this plan and will call with any changes/questions. documented in this encounter Plan of Treatment Upcoming Encounters Date Type Department Care Team (Late st Contact Info) Description 11/02/2023 1:00 PM EDT Office Visit Hematology/Oncology at [address] [phone] Mary Nails APRN [address] [place] [address] MEDICAL ONCOLOGY [place], [place] [address] 11/02/2023 1:30 PM EDT Infusion Hematology Oncology at [address] [phone] documented as of this encounter Visit Diagnoses Not on filedocumented in this encounter Care Teams Transplant Nurse Practitioner Relationship Specialty Start Date End Date Zeny James APRN [address] [place] [address] PCP - General Family Medicine 09/23/19 documented as of this encounter
--- OUTSIDE RECORDS SUMMARY | 2023-11-02 02:34 | XMS_ITS | Encounter Summary ---
Author Organization [facility] [place] [address] Care Team Providers Care Electronic Service Technician Name Role Phone JairoZayda bentleyZenynataliia GRANDA Primary Care Provider [phone] Reason for Visit * Reason Comments Advice Only * Consultation (Routine) - Closed Specialty Diagnoses / Procedures Referred By Nir potts Referred To Contact Surgical Oncology / Hematology and Oncology Diagnoses Breast cancer [facility] ([facility]) Procedures [facility] Zeny James APRN [address] [place] [address] Susan Rivera MD [facility] [place] [address] Referral ID Status Reason Start Date Expiration Date Visits Re quested Visits Authorized [id number] Closed 12/18/2019 12/17/2020 1 1 Encounter Details Date Type Department Care Team (Late st Contact Info) Description 12/18/2019 10:00 AM EDT Office Visit Hematology [place] [address] Susan Rivera MD [facility] [place] [address] Malignant neoplasm of upper-outer quadrant of left [...] Sign Reading Time Taken Comments Blood Pressure 146/75 12/18/2019 8:55 AM EDT Pulse 68 12/18/2019 8:55 AM EDT Temperature 36.7 ??C (98 ??F) 12/18/2019 8:55 AM EDT Respiratory Rate 16 12/18/2019 8:55 AM EDT Oxygen Saturation 100% 12/18/2019 8:55 AM EDT Inhaled Oxygen Concentration - - Weight 54.7 kg (120 lb 9.6 oz) 12/18/2019 8:55 A M EDT Height 156.5 cm (5' 1.61) 12/18/2019 8:55 AM ED T Body Mass Index 22.34 12/18/2019 8:55 AM EDT documented in this encounter Progress Notes * Susan Rivera MD - 12/18/2019 10:00 AM EDT Referring physician: Dr. Ramirez ?? Reason for evaluation: left breast cancer ?? History of the present illness: Ms. Serrano is a 74 year woman who presents in surgical consultation at the request of Dr. Ramirez. She presents to discuss newly diagnosed left breast cancer (ER+,DC-, HER2-) diagnosed after abnormal screening mammogram. Of note, she has a history of MRM on the right in 2000. Maricruz presented for screening mammogram in November,. This revealed a subtle focal asymmetry of the outer left breast, at approximately 3:00, 7 to 8 cm from the nipple measuring 1 cm. Call back imaging confirmed a suspicious finding and pathology revealed ER+, DC- , HER2- IDC. 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 Plan is follow up in January. She is quite stressed about the saeed on regarding her pancreas and now this unexpected breast cancer but she is physically feeling well. She has asthma with seasonal flare currently but denies sob. No cough, fevers, headaches, unexpected weight changes, abdominal pain. + fatigue with slight improvement on pancreas enzymes. Mild nausea with anesthesia in the past. No history of bruising or bleeding. ?? Past Medical History: ?? 1. History of breast cancer status post modified radical mastectomy and chemoradiation in 2000. ?? 2. Hypertension ?? 3. Osteoporosis ? Past Surgical History: ?? 1. 02/06/2001 right modified radical mastectomy for breast cancer ?? 2. History of tonsillectomy ? 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 Her 7 years ago and she currently lives alone. She has adopted 3 sons who live in [place], [place] in [place] and 6 stepchildren. She drinks rarely. No tobacco ?? Family History: She has 1 brother, 1 sister and 3 sons-who are adopted. No daughters. Her mother at age of 76 from heart failure and her father at the age of 68 from a heart attack. She hasa sister who had breast cancer. No family history of pancreatic cancer ?? Sister underwent genetic testing many years ago- negative. ?? Allergies: ?? Allergies Allergen Reactions ??? Iodinated Contrast Media Shortness Of Breath ??? House Dust ? Physical Examination: ?? General: She is well-appearing and looks much younger than her age of 74. Skin: No jaundice, lesions or masses noted. HEENT: Sclera is anicteric. No supraclavicular or cervical adenopathy. I auscultated the neck and heard no carotid bruits bilaterally. Chest: Clear to auscultation bilaterally on posterior chest daniel. Heart: RRR with no murmurs appreciated. Right breast is absent. Left breast is without masses or skin changes excepting bruising from biopsy. No adenopathy in axilla or supraclavicular nodes. Imaging: as in hpi. I have personally reviewed mammograms and u/s, ? Assessment and plans: Maricruz is a 74 yo female with radiographic stage I IDC ER+, DC-, HER2-- IDC of the left breast.No symptomatic, radiographic or chemical evidence of metastasis. Discussed options for surgery. Maricruz is s/p MRM on the right and has already decided she would like to proceed with mastectomy (declines reconstruction) for symmetry and peace of mind. We also discussed the technique and rationale for sentinel node biopsy and we will proceed with this as well. Plan PT and med onc consults post operatively. Plan endocrine therapy (she took in the past) and possibly chemotherapy pending results of surgery and possible oncotype dx testing. Discussed genetic counseling as Maricruz has intact ovaries as well as a sister and niece. She would like to defer for now but will reconsider when her pancreas issues are resolved. Risks of surgery including bleeding, infection, need for additional surgery and lymphedema were discussed and consent was obtained. documented in this encounter Plan of Treatment Upcoming Encounters Date Type Department Care Team (Late st Contact Info) Description 11/02/2023 1:00 PM EDT Office Visit Hematology/Oncology at [address] [phone] Mary Nails WEBMASTER [address] [place] [address] DR MEDICAL ONCOLOGY [place], [place] [address] 11/02/2023 1:30 PM EDT Infusion Hematology Oncology at [address] [phone] documented as of this encounter Procedures Procedure Name Priority Date/Time Associated Diagnosis Comments ORDS - PROVIDER CARE SCAN 12/18/2019 12:00 AM EDT documented in this encounter Results * SCAN DOC: ORDS - PROVIDER CARE (12/18/2019 12:00 AM EDT) Narrative 12/18/2019 12:00 AM EDT Ordered by an unspecified provider. Scanning Provider MEDIA MGR SCAN EXT O RDR/RSLT documented in this encounter Visit Diagnoses Diagnosis Malignant neoplasm of upper-outer quadrant of left breast in female, estrogen receptor positive documented in this encounter Care Teams Electronic Service Technician Relationship Specialty Start Date End Date Zeny James APRN [address] [place] [address] PCP - General Family Medicine 09/23/19 documented as of this encounter
--- OUTSIDE RECORDS SUMMARY | 2023-11-02 02:34 | XMS_ITS | Encounter Summary ---
[place] [address] Care Team Providers Care Card Lacer Jacquard Name Role Phone Zeny James APRN Primary Care Provider Encounter Details Date Type Department Care Team (Late st Contact Info) Description 01/28/2020 11:15 AM EDT Laboratory Appointment Lab [address] [phone] Social History Tobacco Use Types Packs/Day Years [...] PM EDT Office Visit Hematology/Oncology at [address] [phone] Mary Nails APRN [address] [place] [address] MEDICAL ONCOLOGY [place], [place] [id number] 11/02/2023 1:30 PM EDT Infusion Hematology Oncology at [address] [phone] documented as of this encounter Visit Diagnoses Not on filedocumented in this encounter Care Teams Card Lacer Jacquard Relationship Specialty Start Date End Date Zeny James APRN [address] [place] [address] PCP - General Family Medicine 09/23/19 documented as of this encounter
--- OUTSIDE RECORDS SUMMARY | 2023-11-02 02:34 | XMS_ITS | Encounter Summary ---
[facility] [place] [address] Care Team Providers Care Fur Dressing Supervisor Name Role Phone Zeny James JESUS ALBERTO Primary Care Provider Encounter Details Date Type Department Care Team (Late st Contact Info) Description 12/10/2019 Telephone Hematology [place] [address] Lillie Oscar RN Social History Tobacco Use Types Packs/Day Years Used Date Smoking Tobacco: Never Smokeless Tobacco: Never Sex and Gender Information Value Date Recorded Sex Assigned at Not on file Gender Identity Not on file Sexual Orientation Not on file documented as of this encounter Miscellaneous Notes * Telephone Encounter - Lillie Oscar RN - 12/10/2019 3:50 PM EDT [facility] Nurse Navigation Patient Care Plan for the Comprehensive Breast Program(CBP) Reason for call: contacted Linda Serrano via phone to assess for nurse navigation services afterDr. Ramirez informed her that her breast biopsy results indicated she has breast cancer, and to introduce her to the CBP. Linda Serrano is a 74 y.o. female with newly diagnosed ER+/MO-/HER2 pending left breast invasivelobular carcinoma [place] [facility] PERSONAL HISTORY of BREAST CANCER Linda Serrano has a history of node positive ER+/MO-/C-erbB-2 2+ right breast cancer (ILC) treated with excisional biopsies 01/26/01 and right MRM 04/08/[address] Albarran.This was followed by adjuvant chemotherapy (A/C-T) with Dr. Dueñas and radiotherapy which was completed 10/2001. She took Tamoxifen for 5 years, Femara for a short while, Exemestane for 4 months. Maricruz sounds positive and has support through friends and family. She lives alone and has 3 adopted sons and grandchildren. She will likely come unaccompanied to consult appointment. She appears to becoping well but is anxious to meet with a breast surgeon to determine a treatment plan. She is interested in mastectomy without reconstruction. She plans to see Dr. Regino Carolina again in February for repeat blood test and pancreatic CT imaging for recently diagnosed IPMN. Not interested in access to [facility]. Plan: consultation with a breast surgeon has been scheduled. She was introduced to the CBP and toldsean would receive information about her diagnosis and treatment for her review (the Breast Cancer Treatment Handbook; Early-Stage: Invasive Breast Cancer program). KYLIE Farias, VIDYA, will plan to meet with her on the day of her consult apt. She understands that KYLIE Farias, VIDYA and I are available to her for support/concerns Addressed her questions and encouraged her to contact me with any additional questions or concerns.She has our contact information. FAMILY HISTORY Breast Cancer: sister in her early 50's who tested negative (at the time) for BRCA1/2 genes. Laterality:Left Is this a recurrence:No Family history of breast cancer:Yes Family history of ovarian cancer: No Personal history or breast cancer:Yes Method of detection: Mammogram Method of diagnosis: Stereotactic Biopsy Identified Barriers: Nurse Navigator Assessment Insurance / Financial Concerns: No Insurance/Financial or Practical Concerns at This Time Treatment Compliance Issues: Needs to Talk with Provider (Physican, Treadle Cut Off Saw Operator, Therapist, Etc.),Wants More Information, Personal History of Cancer Patient comments or concerns: would like to have surgery fairly soon in order to recover before planned Whipple (per patient). documented in this encounter Plan of Treatment Upcoming Encounters Date Type Department Care Team (Late st Contact Info) Description 11/02/2023 1:00 PM EDT Office Visit Hematology/Oncology at [address] [phone] Mary Nails APRN [address] [place] [address] MEDICAL ONCOLOGY [place], [place] [address] 11/02/2023 1:30 PM EDT Infusion Hematology Oncology at [address] [phone] documented as of this encounter Visit Diagnoses Not on filedocumented in this encounter Care Teams Fur Dressing Supervisor Relationship Specialty Start Date End Date Zeny James APRN [address] [place] [address] [address] [place], [place] [id number] PCP - General Family Medicine 09/23/19 documented as of this encounter
--- OUTSIDE RECORDS SUMMARY | 2023-11-02 02:34 | XMS_ITS | Encounter Summary ---
Author Organization [facility] [address] Care Team Providers Care Hospital Scientist Name Role Phone Zeny James JESUS ALBERTO Primary Care Provider [phone] Encounter Details Date Type Department Care Team (Late st Contact Info) Description 03/03/2020 Telephone [place] [phone] Neelam Jacinto Social History Tobacco Use Types Packs/Day Years Used Date Smoking Tobacco: Never Smokeless Tobacco: Never Sex and Gender Information Value Date Recorded Sex Assigned at Not on file Gender Identity Not on file Sexual Orientation Not on file documented as of this encounter Miscellaneous Notes * Telephone Encounter - Neelam Jacinto - 03/03/2020 12:42 PM EST 1. ASK: TRAVEL ???Have you travelled outside of [place] ([place], [place], [place], [place], [place], [place]) in the past 14 days??? 2. ASK: EXPOSURE Have you been in contact with anyone suspected or confirmed to have COVID-19 in the past 14 days??? 3. ASK: SYMPTOMS Do you have any new or worsening symptoms on this list that are not related to another medical condition? Fever or chills ?? Cough ?? Shortness of breath or difficulty breathing ?? Fatigue ?? Muscle or body aches ?? Headache ?? Loss of taste or smell ?? Sore throat ?? Congestion or runny nose ?? Nausea or vomiting ?? Diarrhea If 'Yes' to any of the questions above Transfer patient to the Covid-19 Hotline Number ([phone]) for further instructions. If 'No' to all of the questions above Is this the first test for Covid 19 Yes If no, please list date of previous test, result, and type of test (Molecular, Antigen, Antibody orunknown): Resides in half-way, penitentiary or other residential facility No Employee or Household Member of Employee No Healthcare Worker No Schedule appointment: Give directions to testing facility. Please advise patient that all passengers in the vehicle must wear a mask and to please either leave their dogs at home or have them crated/behind a net. Telephone call placed/received to schedule Covid 19 testing with patient. Ordering provider: Dr Carolina Testing Facility: [facility] Date of Testin/4 Time of Testin:00am Symptoms: no documented in this encounter Plan of Treatment Upcoming Encounters Date Type Department Care Team (Late st Contact Info) Description 11/02/2023 1:00 PM EDT Office Visit Hematology/Oncology at [address] [phone] Mary Nails APRN [address] [place] [address] MEDICAL ONCOLOGY [place], [place] [address] 11/02/2023 1:30 PM EDT Infusion Hematology Oncology at [address] [phone] documented as of this encounter Visit Diagnoses Not on filedocumented in this encounter Additional Health Concerns Infection Onset Date Last Indicated Resolved Time Rule Out C. difficile 04/08/2020 04/08/20202019 1:19 PM EST Rule Out C. difficile 04/08/2020 04/08/20202019 2:27 PM EST documented as of this encounter Care Teams Hospital Scientist Relationship Specialty Start Date End Date Zeny James APRN [address] [place] [address] [address] [place] [address] PCP - General Family Medicine 09/23/19 documented as of this encounter
--- OUTSIDE RECORDS SUMMARY | 2023-11-02 02:34 | XMS_ITS | Encounter Summary ---
[facility] [place] [address] Care Team Providers Care Abrasive Worker Name Role Phone Zeny James APRN Primary Care Provider Encounter Details Date Type Department Care Team (Late st Contact Info) Description 12/25/2019 Telephone Hematology [place] [phone] Elizabeth Montero Social History Tobacco Use Types Packs/Day Years Used Date Smoking Tobacco: Never Smokeless Tobacco: Never Sex and Gender Information Value Date Recorded Sex Assigned at Not on file Gender Identity Not on file Sexual Orientation Not on file documented as of this encounter Miscellaneous Notes * Telephone Encounter - Elizabeth Montero - 12/25/2019 9:28 AM EDT Age at diagnosis: 74 Date of diagnosis: December 05, 2019 Place of diagnosis: Internal Date of initial appointment: 12/18/2019 Surgeon: Miguel Referral to Medical Oncology: Yes, Internal Medical Oncologist:Leana Referral to Radiation Oncology:No Radiation Oncologist: Other Referral to Plastic Surgery: No documented in this encounter Plan of Treatment Upcoming Encounters Date Type Department Care Team (Late st Contact Info) Description 11/02/2023 1:00 PM EDT Office Visit Hematology/Oncology at [address] [phone] Mary Nails APRN [address] [place] [address] DR MEDICAL ONCOLOGY [place], [place] [address] 11/02/2023 1:30 PM EDT Infusion Hematology Oncology at [address] [phone] documented as of this encounter Visit Diagnoses Not on filedocumented in this encounter Care Teams Abrasive Worker Relationship Specialty Start Date End Date Zeny James APRN [address] [place] [address] PCP - General Family Medicine 09/23/19 documented as of this encounter
--- OUTSIDE RECORDS SUMMARY | 2023-11-02 02:34 | XMS_ITS | Encounter Summary ---
Author Organization [facility] [place] [address] Care Team Providers Care Personal Assistant Name Role Phone Zeny James APRN Primary Care Provider [phone] Reason for Referral * Diagnostic Test (Routine) - Closed Specialty Diagnoses / Procedures Referred By Nir potts Referred To Contact Radiology Diagnoses Malignant neoplasm of pancreatic duct Procedures CT Abdomen w Contrast Regino Carolina MD [facility] [place] [address] [facility] [place] [address] Referral ID Status Reason Start Date Expiration Date V isits Requested Visits Authorized [id number] Closed Specialty Service Requested 12/09/2019 06/10/2021 1 1 Reason for Visit * Reason Comments Follow-up Encounter Details Date Type Department Care Team (Late st Contact Info) Description 12/09/2019 2:30 PM EDT Office [place] [phone] Regino Carolina MD [facility] [place] [address] Malignant neoplasm of pancreatic duct Social History Tobacco Use Types Packs/Day Years Used Date Smoking Tobacco: Never Smokeless Tobacco: Never Sex and Gender Information Value Date Recorded Sex Assigned at Not on file Gender Identity Not on file Sexual Orientation Not on file documented as of this encounter Last Filed Vital Signs Vital Sign Reading Time Taken Comments Blood Pressure 167/75 12/09/2019 2:20 PM EDT Pulse 77 12/09/2019 2:20 PM EDT Temperature - - Respiratory Rate 16 12/09/2019 2:20 PM EDT Oxygen Saturation 100% 12/09/2019 2:20 PM EDT Inhaled Oxygen Concentration - - Weight 55.3 kg (122 lb) 12/09/2019 2:20 PM EDT Height 157.5 cm (5' 2.01) 12/09/2019 2:20 PM ED T Body Mass Index 22.31 12/09/2019 2:20 PM EDT documented in this encounter Progress Notes * Regino Carolina MD - 12/09/2019 2:30 PM EDT Surgical Oncology Office Note Date: 12/09/2019 Primary physician: Zeny James APRN Referring physician: Migue Urrutia MD Reason for evaluation: 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 History of the present illness: Ms. Serrano is a 74 year woman from [place], [place]. She [facility] on 2019 with epigastric [...] below: The pancreatic duct was diffusely dilated measuring??up [...] of pancreatic duct/cyst fluid cytopathology per Acc# [id number] showed neoplastic Cells Present. Abundant macrophages, mixed leukocytes present and a single group of bland-appearing columnar cells. ??Cell block was examined. Note: The fluid CEA level is consistent with neoplastic process. 11/25/2019 surgical oncology consult. Maricruz was seen for surgery consultation. She was by herself. She described the episode that brought her to the ED at [facility] as the first time she [...] it is soft and sometimes diarrhea like. Past Medical History: 1. History of breast cancer status post modified radical mastectomy and chemoradiation in 2000. 2. Hypertension 3. Osteoporosis Past Surgical History: 1. 02/06/2001 right modified radical mastectomy for breast cancer 2. History of tonsillectomy Review of systems: A comprehensive ROS questionnaire (scanned into [employer]) was completed by the patient - pertinent surgical related findings are summarized below. All other systems on the questionnaire were reviewed and were negative. She has never had any heart attack or chest pain symptoms. She is very active with housework, yard work and walking every day with her friends. 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 Her 7 years ago and she currently lives alone. Her stepdaughter Sienna lives nearby. She has 3 sons who live in [place], [place] in [place] and 6 stepchildren who she is very close with. She drinks 1 glass of wine per week but has no history of heavy alcohol use. She has never smoked. Family History: She has 1 brother, 1 sister and 3 sons-who are adopted. No daughters. Her mother at age of 76 from heart failure and her father at the age of 68 from a heart attack. She hasa sister who had breast cancer. No family history of pancreatic cancer though she took care of 2 friends who of metastatic pancreas cancer. Medications: 1. Tylenol as needed 2. Lqo-jqz-bdommauou sulfate inhaler 2 puffs twice daily 3. Aspirin 81 mg daily 4. Calcium carbonate vitamin D3 600/15 100/800 unit tablet-1 tablet daily. 5. Cholecalciferol 25 mcg (1000 units) daily 6. Fluticasone 500 mcg Solu-Medrol 50 mcg inhaler twice daily 7. Flonase 2 sprays intranasally as needed 8. Magnesium oxide 4 mg daily 9. Multivitamin Centrum Silver women 10. [place]-3 1000 mg fish oil capsule daily 11. Pravastatin 20 mg daily 12. Vitamin B complex 1 tablet daily 13. Vitamin E 400 units daily Allergies: Allergies Allergen Reactions ??? Iodinated Contrast Media Shortness Of Breath ??? House Dust Physical Examination: Vital signs: Blood pressure 167/75, pulse 77, resp. rate 16, height 157.5 cm (5' 2.01), weight 55.3 kg (122 lb), SpO2 100 %. General: She is actually very well-appearing and looks much younger than her age of 74. She can ambulate on the exam table without difficulty. She is by herself. Skin: No jaundice, lesions or masses noted. HEENT: Sclera is anicteric. No supraclavicular or cervical adenopathy. I auscultated the neck and heard no carotid bruits bilaterally. Chest: Clear to auscultation bilaterally on posterior chest daniel. Heart: RRR with no murmurs appreciated. Abdomen: Soft, nondistended and completely nontender. No surgical scars. No palpable masses Lymph: No inguinal masses or adenopathy. Extremity exam: No peripheral edema bilaterally. DP palpable bilaterally. Assessment and plans: Main duct intraductal papillary mucinous neoplasm (IPMN) in the context of her presentation with epigastric abdominal pain. Please see my consult note from 11/25/2019 with full details of this likely malignant, transformed main duct IPMN with worrisome features noted by EUS. Wemade a plan for further work-up with CA-19-[address]/PET imaging and she comes into the clinic todayto review those results. 11/25/2019 CA-19-9 elevated to 255. 12/05/2019 CT/PET imaging results reviewed below: EXAMINATION: NM PET CT SKULL BASE TO MID-THIGH ?? CLINICAL HISTORY: Pancreatic cancer, staging Recently diagnosed main duct IPMN/cancer evaluate pancreatic duct for FDG uptake and stage for metastases ? TECHNIQUE: Following IV injection of 72-ryhfio-2-deoxyglucose (FDG) a standard uptake of approximately 60 minutes, a noncontrast CT scan followed by a PET scan were acquired from the base of the skull to mid thighs. The noncontrast CT was used for anatomic localization and photon attenuation correction of the PET scan. ?? Blood glucose level: 91 (mg/dL) ?? FDG dose: 10.5 mCi ?? COMPARISON: Abdomen CT performed at [facility] on 2019 ?? FINDINGS: ?? HEAD/NECK: Normal activity in all soft tissue regions of the neck and visualized lower head. ?? CHEST: There are scattered, mildly FDG avid tree in bud opacities in the left upper lobe (image 57). ?? Irregular soft tissue containing calcification is present in the outer aspect of the left breast (image 79). It is only mildly FDG avid. ?? The ascending aorta is at the upper limits of normal in size measuring 3.9 cm in diameter. There has been a prior right-sided mastectomy. Scarring is noted at the apex of the right upper lobe. ?? ABDOMEN/PELVIS: Normal activity in all soft tissue regions. In particular, no abnormal activity is present associated with the pancreas. ?? Dilatation of the pancreatic duct is unchanged. There are scattered calcifications in the pancreatic parenchyma. No pancreatic mass is observed. ?? SKELETON/EXTREMITIES: Mildly increased activity is associated with healing fractures of the anterior left fourth and fifth ribs. ?? There is a healed fracture deformity of the right pubic bone. Sclerosis within the left humeral head raises a question of avascular necrosis. ?? IMPRESSION 1. No abnormal activity or mass associated with the pancreas. Pancreatic ductal dilatation is unchanged. 2. There is no definite evidence of metastatic disease. Mildly hypermetabolic tree-in-bud opacities in the left upper lobe are likely inflammatory in origin. She comes into the clinic today accompanied by her vdhptd-Mjpgeyr-gez is an RN up in [place]. She really seems to be doing well on the pancreatic enzyme replacement as she still has a very limitedappetite with no desire to eat but is forcing herself to eat 3 meals a day and she is taking her Creon with each meal. Her weight today is stable. She has had no recurrent pancreatitis pain. We reviewed the PET images and I gave her a copy of the report-see above. This is good news in the sense that there is no FDG avid uptake within the pancreas or elsewhere to suggest metastatic disease though her CA-19-9 was elevated to 255 back when I saw her on November 24. At this point we do nothave a specific location for the malignant transformation of the main pancreatic duct while we think it likely is in the head of the pancreas due to the area where there is a possible stricture we cannot tell for sure because the PET scan was negative for any activity in that region or elsewhere inthe pancreas. Her CA-19-9 being elevated is concerning though proceeding with a total pancreatectomy without localization of a worrisome feature or soft tissue component or malignant stricture may beexcessive when a partial pancreatectomy could suffice. We therefore made a plan for her to come back and see me in mid January with blood work-repeat CA-19-9, repeat imaging with pancreatic protocol CT-ordered at that appointment we can discuss next steps. She also was diagnosed with an incidentally discovered, 8 mm focus of lobular carcinoma in situ in the left breast and given her history of right-sided breast cancer she may in fact require or need mastectomy but has yet to see 1 of our breast surgeons to discuss her options and timing. Hopefully by January this will be somewhat more resolved and we can factor this in to the surgical decision making with regard to the pancreas surgery. Jennifer Carolina MD 12/09/2019 2:48 PM This note was created using [employer]) voice recognition software. documented in this encounter Plan of Treatment Upcoming Encounters Date Type Department Care Team (Late st Contact Info) Description 11/02/2023 1:00 PM EDT Office Visit Hematology/Oncology at [address] [phone] Mary Nails [address] MEDICAL ONCOLOGY [place], [place] [phone] 11/02/2023 1:30 PM EDT Infusion Hematology Oncology at [address] [phone] Scheduled Orders Name Type Priority Associated Diagnoses Orde r Schedule Comprehensive metabolic panel (non-fasting) Lab Routine Malignant neoplasm of pancreatic duct Expected: 01/28/2020 (Approximate), Expires: 02/07/2020 documented as of this encounter Results * CT Abdomen w Contrast (01/28/2020 1:35 PM EDT) Anatomical Region Laterality Modality Abdomen Computed Tomogra phy Impressions 01/28/2020 3:45 PM EDT 1. ??Severe dilatation of the pancreatic duct with abrupt narrowing within the pancreatic head, approximately 3 cm from the ampulla. Findings are consistent with given history of main duct intraductal papillary mucinous neoplasm. 2. ??Additional linear cystic structure in the pancreatic head may represent dilated accessory duct versus sidebranch IPMN. 3. ??Additional dilated cystic focus along the posterior and inferior margin of the pancreatic duct, within the pancreatic tail, likely related to a branch duct which is dilated. 4. ??No CT evidence of metastatic disease within the abdomen. I have personally reviewed the image(s) and the resident's interpretation and agree with the findings, Donn Springer DO at 01/28/2020 3:45 PM Thank you for letting us participate in the care of this patient. For questions regarding this report, please contact the number below. ? Narrative 01/28/2020 3:45 PM EDT EXAMINATION: CT ABDOMEN W CONTRAST CLINICAL HISTORY: Pancreatic cancer, staging. Known malignant IPMN- PANCREATIC PROTOCOL CT to eval location of cancer, stricture to make decisions re whipple vs total pancreatectomy TECHNIQUE: Helical CT of the abdomen was performed following the intravenous administration of contrast. Administered 80.0 ml of OMNIPAQUE 350.00 mg/ml. Water used for oral contrast. ??Dual phase imaging was performed in the late arterial and portal venous phases. COMPARISON: PET CT 12/05/2019, MRI abdomen 10/01/2019, CT abdomen/pelvis 2019 FINDINGS: Pancreas: No focal pancreatic mass seen. There is severe dilatation of the pancreatic duct throughout the pancreas to the level of the pancreatic head where it abruptly narrows (series 4, image 53). The duct measures up to 1.4 cm in diameter. The distal 3 cm of the pancreatic duct within the pancreatic head is normal in caliber. There is an additional linear cystic structure within the pancreatic head which measures up to 4 mm in diameter (series 4, image 55). ??Within the pancreatic tail along the inferior margin and posterior margin of the main pancreatic duct, is a second cystic structure, measuring up to 1.5 cm maximal diameter, likely related to an additional branch duct which is dilated (series 602, image 71; series 601, image 25). ??There is atrophy of the pancreatic parenchyma predominantly in the body and tail. Vasculature: Arterial tumor abutment or encasement: None. Venous tumor abutment or encasement: None. Liver: Normal size. Focal hypoattenuating lesion in the right posterior lobe corresponds to a T2 hyperintense lesion on the prior MRI, consistent with an hepatic cyst. Biliary tree: No intrahepatic biliary dilatation. CBD: 7 mm. Gallbladder: Unremarkable. Local/Regional Spread: Lymph nodes: No adenopathy. Omentum/Peritoneum: No nodularity or thickening. Ascites: None. Lower chest: Mild linear atelectasis/scarring at the bilateral bases. ??There are bilateral external breast prostheses. Spleen: Normal. Adrenals: Normal. Kidneys: Small bilateral extrarenal pelves. No collecting system dilatation. Small hypoattenuating lesions within the bilateral upper poles correspond to the greater findings on prior MRI, consistent with simple cysts. Vasculature: No abdominal aortic aneurysm. Bowel: Nondilated, no wall thickening. ?? Abdominal wall: Normal. Osseous structures: No suspicious lesions. Procedure Note Donn Springer, - 01/28/2020 EXAMINATION: CT ABDOMEN W CONTRAST CLINICAL HISTORY: Pancreatic cancer, staging. Known malignant IPMN-PANCREATIC PROTOCOL CT to eval location of cancer, stricture to make decisions rewhipple vs total pancreatectomy TECHNIQUE: Helical CT of the abdomen was performed following theintravenous administration of contrast. Administered 80.0 ml of OMNIPAQUE 350.00mg/ml. Water used for oral contrast. Dual phase imaging was performed in thelate arterial and portal venous phases. COMPARISON: PET CT 12/05/2019, MRI abdomen 10/01/2019, CT abdomen/pelvis2019 FINDINGS: Pancreas: No focal pancreatic mass seen. There is severe dilatation of thepancreatic duct throughout the pancreas to the level of the pancreatic head where itabruptly narrows (series 4, image 53). The duct measures up to 1.4 cm in diameter.The distal 3 cm of the pancreatic duct within the pancreatic head is normalin caliber. There is an additional linear cystic structure within thepancreatic head which measures up to 4 mm in diameter (series 4, image 55). Withinthe pancreatic tail along the inferior margin and posterior margin of themain pancreatic duct, is a second cystic structure, measuring up to 1.5 cmmaximal diameter, likely related to an additional branch duct which is dilated(series 602, image 71; series 601, image 25). There is atrophy of thepancreatic parenchyma predominantly in the body and tail. Vasculature: Arterial tumor abutment or encasement: None. Venous tumor abutment or encasement: None. Liver: Normal size. Focal hypoattenuating lesion in the right posteriorlobe corresponds to a T2 hyperintense lesion on the prior MRI, consistent withan hepatic cyst. Biliary tree: No intrahepatic biliary dilatation. CBD: 7 mm. Gallbladder: Unremarkable. Local/Regional Spread: Lymph nodes: No adenopathy. Omentum/Peritoneum: No nodularity or thickening. Ascites: None. Lower chest: Mild linear atelectasis/scarring at the bilateral bases.There are bilateral external breast prostheses. Spleen: Normal. Adrenals: Normal. Kidneys: Small bilateral extrarenal pelves. No collecting systemdilatation. Small hypoattenuating lesions within the bilateral upper poles correspondto the greater findings on prior MRI, consistent with simple cysts. Vasculature: No abdominal aortic aneurysm. Bowel: Nondilated, no wall thickening. Abdominal wall: Normal. Osseous structures: No suspicious lesions. IMPRESSION 1. Severe dilatation of the pancreatic duct with abrupt narrowing withinthe pancreatic head, approximately 3 cm from the ampulla. Findings areconsistent with given history of main duct intraductal papillary mucinous neoplasm. 2. Additional linear cystic structure in the pancreatic head mayrepresent dilated accessory duct versus sidebranch IPMN. 3. Additional dilated cystic focus along the posterior and inferiormargin of the pancreatic duct, within the pancreatic tail, likely related to abranch duct which is dilated. 4. No CT evidence of metastatic disease within the abdomen. I have personally reviewed the image(s) and the resident's interpretationand agree with the findings, Donn Springer DO at 01/28/2020 3:45 PM Thank you for letting us participate in the care of this patient. Forquestions regarding this report, please contact the number below. Regino Carolina MD IMG CT ORDERABLES * Carbohydrate Antigen 19-9 (01/09/2020 9:45 AM EDT) CA 19-9 24.6 <=35.0 u/ml [facility] Blood specimen (specimen) 01/09/2020 9:45 AM EDT 01/09/2020 10:00 AM EDT Narrative Resulting Agency Comment Spec In Lab Regino Carolina MD CHEMISTRY ORDERABL ES Performing Organization Address City/State/[facility] Co de Phone Number [facility] [place] [address] documented in this encounter Visit Diagnoses Diagnosis Malignant neoplasm of pancreatic duct Malignant neoplasm of pancreatic duct documented in this encounter Care Teams Personal Assistant Relationship Specialty Start Date End Date Zeny James APRN [address] [place] [address] [address] [place] [address] PCP - General Family Medicine 09/23/19 documented as of this encounter
--- OUTSIDE RECORDS SUMMARY | 2023-11-02 02:34 | XMS_ITS | Encounter Summary ---
Author Organization [facility] [place] [address] Care Team Providers Care Horse Racer Name Role Phone Zeny James APRN Primary Care Provider Encounter Details Date Type Department Care Team (Late st Contact Info) Description 01/28/2020 2:00 PM EDT Office [place] [address] Regino Carolina MD [facility] [place] [address] IPMN (intraductal papillary mucinous neoplasm) Social History Tobacco Use Types Packs/Day Years Used Date Smoking Tobacco: Never Smokeless Tobacco: Never Sex and Gender Information Value Date Recorded Sex Assigned at Not on file Gender Identity Not on file Sexual Orientation Not on file documented as of this encounter Last Filed Vital Signs Vital Sign Reading Time Taken Comments Blood Pressure 160/91 01/28/2020 1:55 PM EDT Pulse 93 01/28/2020 1:55 PM EDT Temperature 36.2 ??C (97.2 ??F) 01/28/2020 1:55 PM ED T Respiratory Rate 16 01/28/2020 1:55 PM EDT Oxygen Saturation 100% 01/28/2020 1:55 PM EDT Inhaled Oxygen Concentration - - Weight 55.8 kg (123 lb) 01/28/2020 1:55 PM EDT Height - - Body Mass Index 22.75 01/09/2020 8:44 AM EDT documented in this encounter Progress Notes * Regino Carolina MD - 01/28/2020 2:00 PM EDT Surgical Oncology Office Note Date: 01/28/2020 Primary physician: Zeny James APRN Referring physician: Migue Urrutia MD Reason for evaluation: 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 History of the present illness: Ms. Serrano is a 74 year woman from [place], [place]. She presentedto [facility] ED on 2019 with epigastric [...] of pancreatic duct/cyst fluid cytopathology per Acc# [id number] showed neoplastic Cells Present. Abundant macrophages, mixed leukocytes present and a single group of bland-appearing columnar cells. ??Cell block was examined. Note: The fluid CEA level is consistent with neoplastic process. 11/25/2019 surgical oncology consult. Maricruz was seen for surgery consultation. She was by herself. She described the episode that brought her to the ED at [facility] as the first time she [...] systems: A comprehensive ROS questionnaire (scanned into [facility]) was completed by the patient - pertinent surgical related findings are summarized below. All other systems on the questionnaire were reviewed and were negative. She has never had any heart attack or chest pain symptoms. She is very active with housework, yard work and walking every day with her friends. 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 Her 7 years ago and she currently lives alone. Her stepdaughter Sienna lives nearby. She has 3 sons who live in [place], [place] in [place] and 6 stepchildren who she is very [...] cancer. Medications: 1. Tylenol as needed 2. Hdr-mkn-hxuegnhym sulfate inhaler 2 puffs twice daily 3. Aspirin 81 mg daily 4. Calcium carbonate vitamin D3 600/15 100/800 unit tablet-1 tablet daily. 5. Cholecalciferol 25 mcg (1000 units) daily 6. Fluticasone 500 mcg Solu-Medrol 50 mcg inhaler twice daily 7. Flonase 2 sprays intranasally as needed 8. Magnesium oxide 4 mg daily 9. Multivitamin Centrum Silver women 10. Hemet-3 1000 mg fish oil capsule daily 11. Pravastatin 20 mg daily 12. Vitamin B complex 1 tablet daily 13. Vitamin E 400 units daily Allergies: Allergies Allergen Reactions ??? House Dust Physical Examination: Vital signs: Blood pressure (!) 160/91, pulse 93, temperature 36.2 ??C (97.2 ??F), resp. rate 16, weight 55.8 kg (123 lb), SpO2 100 %. 01/28/2020 she weighed 123 pounds. 12/18/2019 she weighed 120 pounds. General: She is actually very well-appearing and looks much younger than her age of 74. She can ambulate on the exam table without difficulty. Skin: No jaundice, lesions or masses noted. HEENT: Sclera is anicteric. Chest: Clear to auscultation bilaterally on posterior [...] IPMN with worrisome features noted by EUS. 11/25/2019 CA-19-9 elevated to 255. 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 She has recovered fully from mastectomy and was seen by medical oncology with plan foraromatase inhibitor. No PMRT or chemotherapy indicated. OK [...] at the ampulla but no peripancreatic adenopathy. Today, 01/28/2020 we discussed proceeding with the Whipple operation for curative intent. We will be checking the pancreatic neck margin at the time of surgery and hopefully there will be no evidenceof high-grade dysplasia or carcinoma in situ. We discussed the rationale for a minimally invasive approach and she is eager to proceed as planned. Unfortunately the next available OR date is so she would like to be placed on a waiting list to be considered for an earlier surgery date if possible. We will obtain informed consent on the day of surgery. She does not need to go to preadmission testing and I will order a type and screen to be drawn on the day of surgery. Jennifer Carolina MD 01/28/2020 3:01 PM This note was created using [employer] ([employer]) voice recognition software. documented in this encounter Plan of Treatment Upcoming Encounters Date Type Department Care Team (Late st Contact Info) Description 11/02/2023 1:00 PM EDT Office Visit Hematology/Oncology at [address] [phone] Mary Nails APRN [address] [place] [address] MEDICAL ONCOLOGY [place], [place] [address] 11/02/2023 1:30 PM EDT Infusion Hematology Oncology at [address] [phone] documented as of this encounter Visit Diagnoses Diagnosis IPMN (intraductal papillary mucinous neoplasm) Neoplasm of unspecified nature of digestive system documented in this encounter Care Teams Horse Racer Relationship Specialty Start Date End Date Zeny James APRN [address] [place] [address] [address] [place] [address] PCP - General Family Medicine 09/23/19 documented as of this encounter
--- OUTSIDE RECORDS SUMMARY | 2023-11-02 02:34 | XMS_ITS | Encounter Summary ---
Author Organization [facility] [place] [address] Care Team Providers Care Transplant Immunologist Name Role Phone Zeny James APRN Primary Care Provider Reason for Referral * Physical Therapy (Routine) - Specialty Diagnoses / Procedures Referred By Nir potts Referred To Contact Physical Therapy Diagnoses History of breast cancer Susan Rivera MD [facility] [address] Referral ID Status Reason Start Date Expiration Date V isits Requested Visits Authorized [id number] Evaluate and Treat 12/20/2019 06/17/2020 12 12 Encounter Details Date Type Department Care Team (Late st Contact Info) Description 12/20/2019 Orders [place] [address] Susan Rivera MD [facility] [address] History of breast cancer Social History Tobacco Use Types Packs/Day Years [...] PM EDT Office Visit Hematology/Oncology at [address] [phone] Mary Nails APRN [address] [place] [address] MEDICAL ONCOLOGY [place], [place] [id number] 11/02/2023 1:30 PM EDT Infusion Hematology Oncology at [address] [phone] Scheduled Referrals Name Type Priority Associated Diagnoses Orde r Schedule Referral to Physical Therapy Outpatient Referral Routine History of breast cancer Ordered: 12/20/2019 documented as of this encounter Visit Diagnoses Diagnosis History of breast cancer Personal history of malignant neoplasm of breast documented in this encounter Care Teams Transplant Immunologist Relationship Specialty Start Date End Date Zeny James APRN [address] [place] [address] PCP - General Family Medicine 09/23/19 documented as of this encounter
--- OUTSIDE RECORDS SUMMARY | 2023-11-02 02:34 | XMS_ITS | Encounter Summary ---
Author Organization [facility] Address [facility] [place] [address] Care Team Providers Care Boat Fueler Name Role Phone Zeny James APRN Primary Care Provider Reason for Visit * Auth/Cert Specialty Diagnoses / Procedures Referred By Nir t Referred To Contact Diagnoses IPMN Procedures PRO PART REMV PANC, PROX+PART DUOD+ANAST @PANCREATECTOMY, WHIPPLE TYPE WITH PANCREATOJEJUNOSTOMY (WRVU 52.79) MODIFIER ROBOT,DAVINCI XI Referral ID Status Reason Start Date Expiration Date Visits Re quested Visits Authorized [id number] 1 1 Encounter Details Date Type Department Care Team (Late st Contact Info) Description 03/23/2020 7:44 AM EST Anesthesia Event Main [place] [address] Shayan Louis MD [facility] [place] [address] Cherri Khan MD [facility] [place] [place] [address] Anesthesia Record Procedure Summary Procedure Name Responsible Anesthesiologist Anesthesia Start Time Anesthesia Stop Time ROBOTIC PANCREATECTOMY,WHIPPLE, PARTIAL GASTRECTOMY W/ PANCREATOJEJUNOSTOMY (WRVU 18.28) (Abdomen) Shayan Louis MD 03/23/20 0744 03/23/20 1718 Events Date Time Event Comment 03/23/2020 0702 0743 AN Verify 0744 Start 0744 An Start Data 0754 An Induction 0756 An Intubation 0803 Anesthesia Ready 1143 Break/Relief In I assumed ca re for Break Relief before which we: 1. Identified the patient 2. Identified the responsible provider(s) 3. Reviewed the pertinent medical history 4. Discussed the surgical plan and course 5. Reviewed intra-op anesthesia management and issues during anesthesia 6. Set expectations for the relief (and/or post-procedure) period 7. Allowed opportunity for questions and acknowledgement of understanding Aurelia Workman CRNA 1208 Break/Relief Out 1230 Quick Note BP cuff reading ~ 40-50 pts higher than Bree. Bree dampened, flushed, wrist position changed. Still dampened. Will resume NIBP q 5 mins and use those values 1300 Quick Note [place] maintaine d but D/C'd from monitor due to dampened waveform and unreliable values. [place] maintained in situ in case of need for labs 1453 Break/Relief In I assumed ca re for Break Relief before which we: 1. Identified the patient 2. Identified the responsible provider(s) 3. Reviewed the pertinent medical history 4. Discussed the surgical plan and course 5. Reviewed intra-op anesthesia management and issues during anesthesia 6. Set expectations for the relief (and/or post-procedure) period 7. Allowed opportunity for questions and acknowledgement of understanding Aurelia Workman CRNA 1458 Break/Relief Out 1706 Extubation/LMA Out 1706 an stop data 1718 Recovery or ICU Handoff Alexandra ent care was transferred to the destination unit staff after review of the patient's medical history, current anesthetic/surgical status and plan, according to the Provider Handoff Checklist. 1718 Stop Meds Name Total fentaNYL 100 mcg IV Lidocaine 50 mg Propofol 100 mg Rocuronium 140 mg PHENYLephrine 360 mcg Ondansetron 4 mg Dexamethasone 8 mg Esmolol 60 mg Piperacillin-Tazobactam 10.125 g Heparin 5,000 Units PHENYLephrine INF 5,080 mcg HYDROmorphone 1.2 mg Sugammadex 200 mg Lactated Ringers 3,000 mL Sodium Chloride 0.9% 100 mL * Agents Name O2 Air N2O Sevoflurane (et) * Blood No blood administrations on file. Lines, Drains, and Airways Type Details Placement Removal Drain/Device Site 12/20/19; 1301; Left ; breast; other (see comments) (19 fr Darius drain to bulb suction); Miguel 12/20/19 1301 by Aurelia Morrell RN Arterial Line radial artery, left; 20 gauge; rustyimberg; Sterile Prep, Sterile Gloves; 03/23/20; 2100 03/23/20 0846 by 03/23/20 2100 by Debra Keen, RN Incision 12/20/19; 1218; carlos alberto st; 12/13/21 (LDA cleanup utility RA#[id number]); 1715 (LDA cleanup utility RA#[id number]) 12/20/19 1218 by Aurelia Morrell RN 12/13/21 1715 by Antonio Cortes NG/OG Tube 03/23/20; left nostr il; 53; Taped; 03/28/20; 1100 03/23/20 0000 by Debra Keen RN 03/28/20 1100 by Wendy Ruiz RN Urethral Catheter 03/23/20; 0807; Phys ician order, Need for intraoperative urine output monitoring, Surgery longer than 2 hours; indwelling double lumen catheter; latex; 14; inserted at this facility; 1; 5; 10; none; drainage bag to dependent drainage; urethral catheter removed; 03/25/20; 1000 03/23/20 0807 by Alice Price RN 03/25/20 1000 by Maria Esther Blancas RN ETT Mask Ventilation: Ea sy (1); ETT Type: Cuffed; ETT Size: 7 mm; Mac Blade: 3; Notes: Asleep, Pre-O2, Stylette; Attempts: 1; Laryngoscopy Grade: 1; ETT Placement Verified By: Auscultation, Capnometry, Visual; Secured at Teeth: 21 cm; Inserted by: jessica; Removal Date: 03/23/20; Removal Time: 17003/23/20 0808 by Ranjit Abraham CRNA 03/23/20 1706 by Ranjit Abraham CRNA (RETIRED) Peripheral IV Line - Single Lumen 03/23/20; 0811; median cubital vein (antecubital fossa), left; [id number] catheter system; 18 gauge; Erin; removed per policy/procedure, site care per policy/procedure, catheter/device intact; 03/24/20; 1658 03/23/20 0811 by Ranjit Abraham CRNA 03/24/20 1658 by Byron Branham RN Incision 03/23/20; 0834; abdo men; laparoscopic punctures (specify) (multiple trocar sites.); 12/13/21 (LDA cleanup utility RA#[id number]); 1715 (LDA cleanup utility RA#[id number]) 03/23/20 0834 by Alice Price RN 12/13/21 1715 by Antonio Cortes Drain/Device Site 03/23/20; 1452; Righ t; lower; abdomen; collapsible closed device; Sterile prep and drape; Other; 19 fr; 03/28/20; 1100 03/23/20 1452 by Alice Price RN 03/28/20 1100 by Wendy Ruiz RN documented in this encounter Social History Tobacco Use Types Packs/Day Years Used Date Smoking Tobacco: Never Smokeless Tobacco: Never Sex and Gender Information Value Date Recorded Sex Assigned at Not on file Gender Identity Not on file Sexual Orientation Not on file documented as of this encounter OR Notes * Anesthesia Postprocedure Evaluation - Shayan Louis MD - 03/23/2020 5:40 PM EST Department of Anesthesiology Post-procedure Note Patient: Linda Serrano Procedure Summary Date: 03/23/20 Room / Location: [facility] OR [facility] MAIN OR Anesthesia Start: 743 Anesthesia Stop: 1717 Procedures: ROBOTIC PANCREATECTOMY,WHIPPLE, PARTIAL GASTRECTOMY W/ PANCREATOJEJUNOSTOMY (N/A Abdomen) MODIFIER ROBOT,DAVINCI XI (N/A Abdomen) @OMENTAL FLAP, INTRA-ABDOMINAL (WRVU 6.54) (Abdomen) Diagnosis: (IPMN) Surgeon: Regino Carolina MD Responsible Provider: Shayan Louis MD Anesthesia Type: general ASA Status: 3 All Anesthesia Providers: Anesthesiologist: Cherri Khan MD; Shayan Louis MD TILE MASON: Ranjit Abraham CRNA Vitals Value Taken Time BP 202/78 03/23/20 1730 Temp Pulse 91 03/23/20 1739 Resp 11 03/23/20 1739 SpO2 100 % 03/23/20 1739 Pain Level 10 03/23/20 1733 Vitals shown include unvalidated device data. Patient Location: PACU/SD Level of Consciousness: Awake and Alert Pain Management: Satisfactory Analgesia PONV: None Cardiovascular Status: At Baseline and Hemodynamically Stable Respiratory Status: At Baseline and Supplemental O2 (NC or FM) Postoperative Fluid Status: Intravascular EUvolemia Possible Anesthetic Complications: NONE apparent at time of evaluation Final Primary Anesthesia Type: General (The anesthetic type performed was the same as planned.) Comments: Significant facial subcutaneous emphysema rendering it difficult to open the eyes. No problems with breathing. Emphysema does not appear to track to neck or chest. Hypertensive with SBP 190's, but patient's initial SBP also 190 in OR. Patient endorsing abdominal pain, and is somewhat anxious/disoriented. Receiving pain medication, will assess if anti-hypertensive will be needed. Shayan Louis MD 03/23/2020 Shayan Louis MD * Anesthesia Preprocedure Evaluation - Cherri Khan MD - 03/23/2020 6:59 AM EST Pre-Anesthesia Evaluation for: Linda Serrano a 74 y.o. female. Procedure(s): @PANCREATECTOMY, WHIPPLE TYPE WITH PANCREATOJEJUNOSTOMY (WRVU 52.79) MODIFIER ROBOT,MALLORYI XI Patient Active Problem List Diagnosis ??? Malignant neoplasm of left breast in female, estrogen receptor positive Dx: 12/05/19 [facility] ??? IPMN (intraductal papillary mucinous neoplasm) ??? AK (actinic keratosis) ??? Seborrheic dermatitis ??? Nevus ??? SK (seborrheic keratosis) ??? Solar lentigo ??? Seborrheic keratosis ??? Multiple pigmented nevi ??? CIS - Entered not Verified ??? CIS - Healthcare Maintenance ??? CIS - Hypertension ??? CIS - Myalgias ??? CIS - R breast cancer Mid 01: Presented with palpable mass in R breast [...] specimens had focally suggestive angiolymphatic invasion. ER-pos; MN-neg; HER2=2+. 02/06/01: R MRM/ax dissection. On path, [...] therapy to right chest wall from Dr. Cleray. October 2001 Began adjuvant tamoxifen. Completed 5 [...] N/A 12/05/2019 Mammo Stereotactic Biopsy Left 12/05/2019 [facility] RAD MAMMOGRAPHY ??? MASTECTOMY Right with RT ??? PRO BX/REMV, LYMPH NODE, DEEP AXILL Left 12/20/2019 BIOPSY OR EXCISION OF LYMPH NODE(S), OPEN, DEEP AXILLARY NODE(S) (WRVU 6.43) performed by Susan Rivera MD at [facility] OSC ??? PRO COLONOSCOPY, DIAGNOSTIC 01/07/2014 COLONOSCOPY, DIAGNOSTIC performed by Izzy Johnson MD at [facility] ENDOSCOPY ??? PRO ENDOSCOPIC US EXAM, ESOPH N/A 11/15/2019 UPPER EUS- ENDOSCOPIC ULTRASOUND performed by Ralf Urrutia MD at [facility] ENDOSCOPY ??? PRO INTRAOP SENTINEL LYMPH ID W/DYE INJECTION Left 12/20/2019 INTRAOPERATIVE ID (MAPPING) SENTINEL LYMPH NODE,INCLUDES INJECTION (WRVU 2.5) performed by Susan Rivera MD at [facility] OSC ??? PRO MASTECTOMY, SIMPLE, COMPLETE Left 12/20/2019 MASTECTOMY, SIMPLE, COMPLETE (WRVU 15.85) performed by Susan Rivera MD at [facility] OSC Social History Tobacco Use ??? Smoking status: Never Smoker ??? Smokeless tobacco: Never Used Substance Use Topics ??? Alcohol use: Not on file Comment: socially, 1-2 wine a month Social History Substance and Sexual Activity Drug Use Never Allergies Allergen Reactions ??? House Dust Medications: MAR and/or home medications have been reviewed. Physical Exam: Patient Vitals for the past 24 hrs: Temp Pulse Resp BP SpO2 03/23/20 0633 36.5 ??C (97.7 ??F) 73 18 147/71 99 % Body mass index is 22.13 kg/m??. Height: 157.5 cm (5' 2) Weight: 54.9 kg (121 lb) Airway Assessment: Mallampati: I TM distance: >3 FB Neck ROM: full Cardiovascular Assessment: Rhythm: regular Rate: normal Pulmonary Assessment: unlabored breathing Dental Assessment: (+) upper dentures Misc Assessment: Anesthesia Plan: ASA 3 general, with a(n) intravenous induction 74 yo nonsmoker presenting with newly dx IPMN for robotic assisted Whipple. Hx of right breast ca (2000) and recent left breast ca (partial mastectomy 01/04). Discussed risks/benefits GAETT, arterial line Informed Consent: Anesthetic plan and risks discussed with patient. Use of blood products discussed with patient who. Plan discussed with TILE MASON. PAT Clinic Note documented in this encounter Plan of Treatment Upcoming Encounters Date Type Department Care Team (Late st Contact Info) Description 11/02/2023 1:00 PM EDT Office Visit Hematology/Oncology at [address] [phone] Mary Nails, INSURANCE CLAIMS ASSISTANT [address] [place] [address] DR MEDICAL ONCOLOGY [place], [place] [phone] 11/02/2023 1:30 PM EDT Infusion Hematology Oncology at [address] [phone] documented as of this encounter Visit Diagnoses Not on filedocumented in this encounter Administered Medications Inactive Administered Medications - up to 3 most recent administrations Medication Order MAR Action Action Date Dose Rate Site dexamethasone (Decadron) injection PRN, Starting on Mon03/23/20 at 0757, Until Mon03/23/20 at 1718, Anesthesia Intra-op, Routine Given 03/23/2020 7:57 AM EST 8 mg esmoloL (Brevibloc) (10 mg/mL) injection PRN, Starting on Mon03/23/20 at 0831, Until Mon03/23/20 at 1718, Anesthesia Intra-op, Routine Given 03/23/2020 11:14 AM EST 20 mg Given 03/23/2020 9:51 AM EST 20 mg Given 03/23/2020 8:31 AM EST 20 mg fentaNYL (pf) (50 mcg/mL) multi-dose injection PRN, Starting on Mon03/23/20 at 0833, Until Mon03/23/20 at 1718, Anesthesia Intra-op, Routine Given 03/23/2020 8:33 AM EST 50 mcg Given 03/23/2020 7:54 AM EST 50 mcg heparin (porcine) (1,000 units/mL) injection PRN, Starting on Mon03/23/20 at 0803, Until Mon03/23/20 at 1718, Anesthesia Intra-op, Routine Given 03/23/2020 8:03 AM EST 5,000 Units HYDROmorphone (Dilaudid) (2 mg/mL) multi-dose injection solution PRN, Starting on Mon03/23/20 at 0903, Until Mon03/23/20 at 1718, Anesthesia Intra-op, Routine Given 03/23/2020 4:43 PM EST 0.2 mg Given 03/23/2020 12:46 PM EST 0.2 mg Given 03/23/2020 11:12 AM EST 0.2 mg lactated ringers infusion CONTINUOUS PRN, Starting on Mon03/23/20 at 0744, Until Mon03/23/20 at 1718, Anesthesia Intra-op New Bag 03/23/2020 11:42 AM EST New Bag 03/23/2020 9:30 AM EST New Bag 03/23/2020 7:44 AM EST lidocaine (pf) (Xylocaine) (20 mg/mL) 2% injection syringe PRN, Starting on Mon03/23/20 at 0754, Until Mon03/23/20 at 1718, Anesthesia Intra-op, Routine Given 03/23/2020 7:54 AM EST 50 mg ondansetron (pf) (Zofran) (2 mg/mL) injection PRN, Starting on Mon03/23/20 at 1656, Until Mon03/23/20 at 1718, Anesthesia Intra-op, Routine Given 03/23/2020 4:56 PM EST 4 mg PHENYLephrine (ANNE-SYNEPHRINE) 20 mg in sodium chloride 250 mL (standard ADULT & Pedi greater than 20kg) infusion CONTINUOUS PRN, Starting on Mon03/23/20 at 0857, Until Mon03/23/20 at 1718, Anesthesia Intra-op, Routine Rate/Dose Change 03/23/2020 1:25 PM EST 20 mcg/min 15 mL/hr Restarted 03/23/2020 1:20 PM EST 10 mcg/min 7.5 mL/hr Rate/Dose Change 03/23/2020 12:05 PM EST 20 mcg/min 15 mL/ hr PHENYLephrine in NS (PF) (ANNE-SYNEPHRINE) 0.8 mg/10 mL (80 mcg/mL) multi-dose injection Syrg PRN, Starting on Mon03/23/20 at 0958, Until Mon03/23/20 at 1718, Anesthesia Intra-op, Routine Given 03/23/2020 12:25 PM EST 80 mcg Given 03/23/2020 11:42 AM EST 80 mcg Given 03/23/2020 10:50 AM EST 80 mcg piperacillin-tazobactam (Zosyn) injection PRN, Starting on Mon03/23/20 at 0830, Until Mon03/23/20 at 1718, Anesthesia Intra-op, Routine Given 03/23/2020 2:30 PM EST 3.375 g Given 03/23/2020 11:31 AM EST 3.375 g Given 03/23/2020 8:30 AM EST 3.375 g propofoL (Diprivan) 10 mg/mL bolus injection (Anesthesia) PRN, Starting on Mon03/23/20 at 0754, Until Mon03/23/20 at 1718, Anesthesia Intra-op Given 03/23/2020 7:54 AM EST 100 mg rocuronium (Zemuron) (10 mg/mL) multi-dose injection PRN, Starting on Mon03/23/20 at 0754, Until Mon03/23/20 at 1718, Anesthesia Intra-op, Routine Given 03/23/2020 1:50 PM EST 20 mg Given 03/23/2020 12:36 PM EST 20 mg Given 03/23/2020 8:51 AM EST 50 mg sodium chloride 0.9% infusion CONTINUOUS PRN, Starting on Mon03/23/20 at 0803, Until Mon03/23/20 at 1718, Anesthesia Intra-op New Bag 03/23/2020 8:03 AM EST sugammadex (Bridion) 100 mg/mL injection PRN, Starting on Mon03/23/20 at 1653, Until Mon03/23/20 at 1718, Anesthesia Intra-op, Routine Given 03/23/2020 4:53 PM EST 200 mg documented in this encounter Care Teams Boat Fueler Relationship Specialty Start Date End Date Delaney JamesJESUS ALBERTO noriega [address] [place] [address] PCP - General Family Medicine 09/23/19 documented as of this encounter
--- OUTSIDE RECORDS SUMMARY | 2023-11-02 02:34 | XMS_ITS | Encounter Summary ---
Author Organization [facility] [place] [address] Care Team Providers Care Semiconductor Technician Name Role Phone Zeny James APRN Primary Care Provider Encounter Details Date Type Department Care Team (Late Contact Info) Description 03/09/2020 Telephone [place] [phone] Arline Verde RN Social History Tobacco Use Types Packs/Day Years Used Date Smoking Tobacco: Never Smokeless Tobacco: Never Sex and Gender Information Value Date Recorded Sex Assigned at Not on file Gender Identity Not on file Sexual Orientation Not on file documented as of this encounter Miscellaneous Notes * Telephone Encounter - Arline Verde RN - 03/09/2020 11:02 AM EST [facility]. He would like the patient to hold her aspirin for 7 days before surgery. Pt states that she is currently holding her aspirin, fish oil and iron as her paperwork instructs. documented in this encounter Plan of Treatment Upcoming Encounters Date Type Department Care Team (Late st Contact Info) Description 11/02/2023 1:00 PM EDT Office Visit Hematology/Oncology at [address] [phone] Mary Nails APRN [address] [place] [address] DR MEDICAL ONCOLOGY [place], [place] [address] 11/02/2023 1:30 PM EDT Infusion Hematology Oncology at [address] [phone] documented as of this encounter Visit Diagnoses Not on filedocumented in this encounter Care Teams Semiconductor Technician Relationship Specialty Start Date End Date Zeny James APRN [address] [place] [address] [address] [place] [address] PCP - General Family Medicine 09/23/19 documented as of this encounter
--- OUTSIDE RECORDS SUMMARY | 2023-11-02 02:34 | XMS_ITS | Encounter Summary ---
Author Organization [facility] [place] [address] Care Team Providers Care Midwife Practitioner Name Role Phone Zeny James TOOL PUSHER Primary Care Provider Encounter Details Date Type Department Care Team (Latest Contact Info) Description 12/18/2019 11:00 AM EDT Clinical Support General Surgery at [facility] [place] [phone] Other specified counseling Social History Tobacco Use Types Packs/Day Years Used Date Smoking Tobacco: Never Smokeless Tobacco: Never Sex and Gender Information Value Date Recorded Sex Assigned at Not on file Gender Identity Not on file Sexual Orientation Not on file documented as of this encounter Progress Notes * Felicity King RN - 12/18/2019 11:00 AM EDT [facility] referral faxed to [facility] for Linda who is having surgery with Dr Rivera on Monday. Pre- Operative Breast Surgery Instructions. Linda Serrano presents to the General Surgery Clinic to receive pre operative teaching on drain care. A Denny Davis drain model was used to teach drain care along with the milking/ stripping techniques. Written information was reviewed with and given to Linda along with a tally sheet to keep track ofamounts, a marsupial pouch and a measuring cup. The Prevention of Deep Vein Thrombosis pamphlet, the Breast Surgery Discharge Instructions and PostBreast Surgery Exercises were reviewed and given to Linda. A Visiting Nurse referral was offered to Linda. Contact information for the General Surgery Clinic Nurses was given and the Doctor food and nutrition services supervisor system explained. documented in this encounter Plan of Treatment Upcoming Encounters Date Type Department Care Team (Late st Contact Info) Description 11/02/2023 1:00 PM EDT Office Visit Hematology/Oncology at [address] [phone] Mary Nails APRN [address] [place] [address] MEDICAL ONCOLOGY [place], [place] [address] 11/02/2023 1:30 PM EDT Infusion Hematology Oncology at [address] [phone] documented as of this encounter Visit Diagnoses Diagnosis Other specified counseling documented in this encounter Care Teams Midwife Practitioner Relationship Specialty Start Date End Date Zeny James APRN [address] [place] [address] [address] [facility] [address] [place] [address] PCP - General Family Medicine 09/23/19 documented as of this encounter
--- OUTSIDE RECORDS SUMMARY | 2023-11-02 02:34 | XMS_ITS | Encounter Summary ---
Author Organization [facility] [place] [address] Care Team Providers Care Fire Extinguisher Repairer Name Role Phone Zeny James APRN Primary Care Provider Encounter Details Date Type Department Care Team (Late st Contact Info) Description 12/20/2019 Telephone [place]ology [place] [phone] Elizabeth Montero Social History Tobacco Use Types [...] 1:00 PM EDT Office Visit Hematology/Oncology at [address] [phone] Mary Nails SALES MANAGER [address] [place] [address] [place] [address] 11/02/2023 1:30 PM EDT Infusion Hematology Oncology at [address] [phone] documented as of this encounter Visit Diagnoses Not on filedocumented in this encounter Care Teams Fire Extinguisher Repairer Relationship Specialty Start Date End Date Zeny James APRN [address] [place] [address] PCP - General Family Medicine 09/23/19 documented as of this encounter
--- OUTSIDE RECORDS SUMMARY | 2023-11-02 02:34 | XMS_ITS | Encounter Summary ---
Author Organization [facility] [place] [address] Care Team Providers Care Post Production Assistant Name Role Phone Zeny James APRN Primary Care Provider Encounter Details Date Type Department Care Team (Late st Contact Info) Description 01/09/2020 10:45 AM EDT Office [place] [phone] Susan Rivera MD [facility] [place] [address] Malignant neoplasm of upper-outer quadrant of left breast in female, estrogen receptor positive Social History Tobacco Use Types Packs/Day Years Used Date Smoking Tobacco: Never Smokeless Tobacco: Never Sex and Gender Information Value Date Recorded Sex Assigned at Not on file Gender Identity Not on file Sexual Orientation Not on file documented as of this encounter Progress Notes * Susan Rivera MD - 01/09/2020 10:45 AM EDT History of the present illness:?Ms. Serrano is a 74 year woman??who returns following mastectomy for newly diagnosed left breast cancer (ER+, NV-, HER2-) diagnosed after abnormal screening mammogram. Of note, she has a history of MRM on the right in 2000. ?? Maricruz presented for screening mammogram in November,. This revealed a subtle focal asymmetry of the outer left breast, at approximately 3:00, 7 to 8 cm from the nipple measuring 1 cm.?Call back imaging confirmed a suspicious finding and pathology revealed ER+, NV- , HER2- IDC. ?? 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 Plan is follow up in January. Maricruz opted for mastectomy with left sentinel node excision. Pathology confirmed 15mm ILC with 0/2 nodes and negative margins. Oncotype dx low recurrence risk. Maricruz has recovered well. She did get a rash with steristrips which is improving. Past Medical History: ? 1. ??History of breast cancer status post modified radical mastectomy and chemoradiation in 2000. ?? 2. ??Hypertension ?? 3. ??Osteoporosis ? Past Surgical History: ?? 1. ??02/06/2001 right modified radical mastectomy for breast cancer ?? 2. ??History of tonsillectomy ? 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 ??Her 7 years ago and she currently lives alone. ?She has??adopted??3 sons who live in [place], [place] in [place] and 6 stepchildren. ??She drinks??rarely. No tobacco ?? Family History:??She has 1 brother, 1 sister and 3 sons-who are adopted. ??No daughters. ??Her mother at age of 76 from heart failure and her father at the age of 68 from a heart attack. ??She has a sister who had breast cancer.?No family history of pancreatic cancer ?? Sister underwent genetic testing many years ago- negative. ? Allergies:? Allergies Allergen Reactions ??? Iodinated Contrast Media Shortness Of Breath ??? House Dust ? Physical Examination: ? well appearing and in nad Left chest wall with well healed mastectomy incision. Rash resolving. No erythema. No drainage or seroma. Some limitation of ROM of the left arm. ?? Assessment and plans:? Maricruz is a 74 yo female with stage I ILC ??ER+, NV-, HER2-- IDC??of the left breast.She has recovered fully from mastectomy and has seen medical oncology. Plan AI. No PMRT or chemotherapy indicated. Leslie set Maricruz up in [place] for PT for both underlying left shoulder issues and tightness post mastectomy. I will let Dr. Carolina know that the breast cancer is treated and Maricruz is ready to proceed with any additional pancreatic evaluation/surgery deemed appropriate. Plan follow up in 1 year for chest wall exam. documented in this encounter Plan of Treatment Upcoming Encounters Date Type Department Care Team (Late st Contact Info) Description 11/02/2023 1:00 PM EDT Office Visit Hematology/Oncology at [address] [phone] Mary Nails, TOUCH UP PAINTER [address] [place] [address] DR MEDICAL ONCOLOGY [place], [place] [address] 11/02/2023 1:30 PM EDT Infusion Hematology Oncology at [address] [phone] documented as of this encounter Visit Diagnoses Diagnosis Malignant neoplasm of upper-outer quadrant of left breast in female, estrogen receptor positive documented in this encounter Care Teams Post Production Assistant Relationship Specialty Start Date End Date Zeny James APRN [address] [place] [address] PCP - General Family Medicine 09/23/19 documented as of this encounter
--- OUTSIDE RECORDS SUMMARY | 2023-11-02 02:34 | XMS_ITS | Encounter Summary ---
Author Organization [facility] [place] [address] Care Team Providers Care Knitting Inspector Name Role Phone Zeny James APRN Primary Care Provider Encounter Details Date Type Department Care Team (Latest Contact Info) Description 12/20/2019 10:50 AM EDT - 12/20/2019 3:15 PM EDT Hospital Encounter [place] [address] Kevin Rivera MD [facility] [place] [address] Discharge Disposition: Home Social History Tobacco Use Types Packs/Day Years Used Date Smoking Tobacco: Never Smokeless Tobacco: Never Sex and Gender Information Value Date Recorded Sex Assigned at Not on file Gender Identity Not on file Sexual Orientation Not on file documented as of this encounter Last Filed Vital Signs Vital Sign Reading Time Taken Comments Blood Pressure 153/73 12/20/2019 2:04 PM EDT Pulse 65 12/20/2019 1:45 PM EDT Temperature 36 ??C (96.8 ??F) 12/20/2019 1:38 PM EDT Respiratory Rate 18 12/20/2019 2:04 PM EDT Oxygen Saturation 98% 12/20/2019 2:04 PM EDT Inhaled Oxygen Concentration - - Weight 52.2 kg (115 lb) 12/20/2019 11:01 AM EDT Height 156.2 cm (5' 1.5) 12/20/2019 11:01 AM ED T Body Mass Index 21.38 12/20/2019 11:01 AM EDT documented in this encounter Discharge Instructions * Discharge Instructions* Meera Mason RN - 12/20/2019 1:52 PM EDT General Anesthesia Discharge Instructions Go home and rest. You may be sleepy for several hours. Take it easy as sudden position changes may cause nausea and/or dizziness. Use caution on stairs. Do not smoke if you are alone. Follow a light to regular diet as tolerated today. If nausea occurs, start with clear liquids, and progress slowly to a regular diet. Do not drive, operate machinery, drink alcoholic beverages or make any legal decisions after havinggeneral anesthesia. The medications given change your reaction time and alter your judgement. IV site -- slight redness is normal, you can use warm compresses. If tenderness and redness increases or foul drainage occurs, please contact your M.D. Patients who have had endotracheal tubes/LMA (tubes used by the anesthesia staff to ensure a safe airway during your operation) may have a sore throat. This is normal and cold liquids or soothing lozenges will help ease this discomfort. Narcotic pain medications can cause constipation, please ask the surgeons office what they recommend for prevention of this. Some non-pharmaceutical means of constipation prevention include increasing intake of fluids, eating more fruits and vegetables as well as fruit juices. If you are uncomfortable and/or unable to urinate within 8 hours of discharge and it is before 5 pm, call your physician. If it is after 5pm go to the closest emergency room or call the hospital caterpillar operator at [phone] and ask for physician concrete float maker covering for your physician. Questions or problems after 5pm or on a weekend: Call the [facility] caterpillar operator at and ask for the physician concrete float maker covering for your doctor. At 11;15am you received 1000 mg of acetaminophen- Your next dose should not be taken before 8 hourshave passed. Next dose not before-7:15pm You should not take more than a total of 3000 mg of acetaminophen in a 24 hour period. You received an nsaid medication at 11:50am. Your next dose should not be taken before 7pm today. Okay to shower 24 hours; you should place a towel around your neck and pin drain to the towel for your shower Activity as tolerated-- do not do any strenuous activity with your right arm until the drain is removed Call [phone] with any questions steristrips will fall off 7-14 days Wear bra as needed for comfort only. You may remove it as you wish Do not soak incision for 2 weeks Will call with pathology results when available Ice pack to chest as needed May use tylenol and/or ibuprofen as needed for pain as needed Empty drain twice daily and record output Call clinic at [phone] for drain removal when output less than 30cc per day for [address] when you feel comfortable turning quickly if you need to twist your body documented in this encounter Medications at Time of Discharge Medication Sig Dispensed Refills Start Date End Date Wixela Inhub 500-50 mcg/dose Disk with Device Inhale 1 puff into the lungs 2 times daily. 08/20/2019 cholecalciferol, Vitamin D3, 1,000 unit Capsule Take 4,000 Units by mouth daily. multivit,iron,minerals /lutein (CENTRUM SILVER ULTRA WOMEN'S ORAL) Take 1 tablet by mouth daily. magnesium oxide 400 mg magnesium Capsule Take 1 capsule by mouth daily. fish oil-omega-3 fatty acids 1,000 mg Capsule Take 1 g by mouth daily. PravachoL 20 mg Tablet 08/20/201901/27 omeprazole (PriLOSEC) 20 mg Capsule, Delayed Release(E.C.) Take 20 mg by mouth every other day. 10/25/2019 04/11/2020 hkqpjy-kxmpwdgk-zjafto e DR ([place]) 24,000-76,000 -120,000 unit Capsule, Delayed Release(E.C.) Take 1-2 capsules by mouth 3 times daily (with meals). 250 capsule 3 11/25/2019 01/13/2020 CIS Free Text Med - Calcium 600 with Vitamin D2 02/11/2010 01/28/2020 CIS Free Text Med - Albuterol 1 Puff(s), Inh, PRN 02/11/2010 01/28/20 20 vitamin E 400 unit capsule 02/11/2010 03/31/2020 documented as of this encounter Progress Notes * Raimundo Hubbard RN - 12/20/2019 3:14 PM EDT Discharge instructions and medications reviewed with patient and escort. All questions answered andwritten copy sent home with patient. Patient ambulated to car for discharge accompanied by [facility] staff member. Drain teaching done. [facility] called and faxed . * Meera Mason RN - 12/20/2019 1:52 PM EDT Discharge instructions and medications reviewed with patient and escort/son. All questions answeredand written copy sent home with patient. Patient ambulated to car for discharge accompanied by [facility] staff member. * Vannesa Apodaca RN - 12/19/2019 1:17 PM EDT During this call the patient was questioned regarding travel, fever, cough, SOB or other illness inthe last 14 days. Patient also questioned regarding any exposure to a COVID positive person, a person awaiting results from testing or a person in quarantine. Patient denies any positive responses to the above questions for themselves or their escort for theday of procedure. * Madeline Montoya RN - 12/18/2019 2:27 PM EDT During this call the patient was questioned regarding travel, fever, cough, SOB or other illness inthe last 14 days. Patient also questioned regarding any exposure to a COVID positive person, a person awaiting results from testing or a person in quarantine. Patient denies any positive responses to the above questions for themselves or their escort for theday of procedure. documented in this encounter H&P Notes * Kevin Rivera MD - 12/20/2019 8:09 AM EDT History of the present illness:?Ms. Serrano is a 74 year woman who presents in surgical consultation at the request of Dr. Ramirez. She presents to discuss newly diagnosed left breast cancer (ER+, CT-, HER2-) diagnosed after abnormal screening mammogram. Of note, she has a history of MRM on the right in 2000. ?? Maricruz presented for screening mammogram in November,. This revealed a subtle focal asymmetry of the outer left breast, at approximately 3:00, 7 to 8 cm from the nipple measuring 1 cm. Call back imaging confirmed a suspicious finding and pathology revealed ER+, CT- , HER2- IDC. ?? Maricruz is currently [...] bruising or bleeding. ?? Past Medical History: ? 1. ??History of breast cancer status post modified radical mastectomy and chemoradiation in 2000. ?? 2. ??Hypertension ?? 3. ??Osteoporosis ? Past Surgical History: ?? 1. ??02/06/2001 right modified radical mastectomy for breast cancer ?? 2. ??History of tonsillectomy ? 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 ??Her 7 years ago and she currently lives alone. ?She has adopted 3 sons who live in [place], [place] in [place] and 6 stepchildren. ??She drinks rarely. No tobacco ?? Family History:??She has 1 brother, 1 sister and 3 sons-who are adopted. ??No daughters. ??Her mother at age of 76 from heart failure and her father at the age of 68 from a heart attack. ??She has a sister who had breast cancer. ??No family history of pancreatic cancer ?? Sister underwent genetic testing many years ago- negative. ?? Allergies:? Allergies Allergen Reactions ??? Iodinated Contrast Media Shortness Of Breath ??? House Dust ? Physical Examination: ?? General: She is well-appearing and looks much younger than her age of 74. ?? Skin: ??No jaundice, lesions or masses noted. HEENT: ??Sclera is anicteric. ??No supraclavicular or cervical adenopathy. ??I auscultated the neckand heard no carotid bruits bilaterally. Chest: ??Clear to auscultation bilaterally on posterior chest daniel. Heart: RRR with no murmurs appreciated. Right breast is absent. Left breast is without masses or skin changes excepting bruising from biopsy. No adenopathy in axilla or supraclavicular nodes. ?? Imaging: as in hpi. I have personally reviewed mammograms and u/s, ? Assessment and plans:? Maricruz is a 74 yo female with radiographic stage I IDC ER+, CT-, HER2-- IDC of the left breast.No symptomatic, radiographic or chemical evidence of metastasis. Discussed options for surgery. Maricruz is s/p MRM on the right and has already decided she would like to proceed with mastectomy (declines reconstruction) for symmetry and peace of mind. We also discussed the technique and rationale for sentinel node biopsy and we will proceed with this as well. ?? Plan PT and med onc consults post operatively. Plan endocrine therapy (she took in the past) and possibly chemotherapy pending results of surgery and possible oncotype dx testing. ?? Discussed genetic counseling as Maricruz has intact ovaries as well as a sister and niece. She would like to defer for now but will reconsider when her pancreas issues are resolved. ?? Risks of surgery including bleeding, infection, need for additional surgery and lymphedema were discussed and consent was obtained. Stable for OR documented in this encounter Miscellaneous Notes * Op Note - Kevin Rivera MD - 12/20/2019 1:35 PM EDT [facility] Operative Note Patient Name: Linda Serrano : [id number] MR#: [id number] Case Date: 12/20/2019 Surgeon: Surgeon(s) and Role: * Kevin Rivera MD - Primary Preoperative diagnosis: BREAST CANCER - left Postoperative diagnosis: BREAST CANCER - left Procedure(s) (LRB): MASTECTOMY, SIMPLE, COMPLETE (WRVU 15.85) (Left) BIOPSY OR EXCISION OF LYMPH NODE(S), OPEN, DEEP AXILLARY NODE(S) (WRVU 6.43) (Left) INTRAOPERATIVE ID (MAPPING) SENTINEL LYMPH NODE,INCLUDES INJECTION (WRVU 2.5) (Left) MODIFIER SENTINEL NODE EXCISION (Left) Anesthesia: General Estimated Blood Loss: 32cc Specimens removed during surgery: Order Name Source Comment Collection Info Order Time SPECIMEN TO PATHOLOGY Clinical History: Left breast cancer BREAST CANCER Left breast short stitch superior, long stitch lateral excision Yes 12/20/2019 12:34 PM Time specimen removed from patient: 12:33 PM Number of tissue samples (in container) 1 SPECIMEN TO PATHOLOGY BREAST CANCER Left axillary sentinel node excision No 12/20/2019 12:45 PM Time specimen removed from patient: 12:44 PM Number of tissue samples (in container) 1 SPECIMEN TO PATHOLOGY Breast Cancer Left Breast Deep Lateral Margin excision Yes 12/20/2019 1:12 PM Time specimen removed from patient: 1:11 PM Number of tissue samples (in container) 1 Drains: Drain/Device Site 12/20/19 1301 Left breast other (see comments) (Active) Surgical Closure: Primary Closure - skin incision is completely closed without any wires, jazzy, drains or other devices Disposition: awakened from anesthesia, extubated and taken to the recovery room in a stable condition, having suffered no apparent untoward event. Condition: doing well without problems (Please see the Surgical Encounter Summary for any Implant and Specimen details pertinent to this patient.) HPI/Surgical Indications: Linda is a 74 yo female with left breast cancer. She has opted for mastectomy with sentinel node excision. Procedure Description: Linda presented to radiology for technetium injection in the left breast for lymphatic mapping. She then was admitted through Same Day Surgery. She was brought to the Operating Room and laid supine on the operating table. General anesthetics were administered, and an LMA wasplaced for airway protection. L The chest was prepped and draped in a sterile fashion. Time-out confirmed the patient's identity, the correct surgical site, and the administration of prophylactic antibiotics. Once this had been confirmed, attention was turned to the left breast. An elliptical incision inclusive the nipple-areolar complex was made sharply. This was brought through the dermis using electrocautery. Skin flaps were elevated circumferentially inferiorly to the inframammary fold, laterally tothe latissimus border, medially to the sternal border, and superiorly to the infraclavicular border. The breast was then mobilized inclusive of the underlying pectoralis major fascia. Attention was turned to the left axilla. I opened the clavipectoral fascia and used the gamma probeto identify 2 sentinel nodes. The highest ex vivo 331 with remaining count of 1. There was no palpable adenopathy. The wound was irrigated, hemostased, and closed over a 19-Danish Darius drain. Sterile dressings were applied. Infection Bundle used? N/A Attestation: Case Date: 12/20/2019 I performed this procedure without the involvement of a resident. KEVIN RIVERA MD 12/20/2019 documented in this encounter Plan of Treatment Upcoming Encounters Date Type Department Care Team (Late st Contact Info) Description 11/02/2023 1:00 PM EDT Office Visit Hematology/Oncology at [address] [phone] Mary Nails APRN [address] [place] [address] MEDICAL ONCOLOGY [place], [place] [address] 11/02/2023 1:30 PM EDT Infusion Hematology Oncology at [address] [phone] documented as of this encounter Procedures Procedure Name Priority Date/Time Associated Diagnosis Comments ORDS - PROVIDER CARE SCAN 12/24/2019 12:00 AM EDT SPECIMEN TO PATHOLOGY Routine 12/20/2019 1:12 PM EDT SPECIMEN TO PATHOLOGY Routine 12/20/2019 12:45 PM EDT SPECIMEN TO PATHOLOGY Routine 12/20/2019 12:35 PM EDT SURGICAL PATHOLOGY REPORT Routine 12/20/2019 12:33 PM EDT MODIFIER SENTINEL NODE EXCISION Yes 12/20/2019 11:45 AM EDT BREAST CANCER Intraop Live Oak Lymph Id W/Dye Injection (25506) Yes 12/20/2019 11:45 AM EDT BREAST CANCER Bx/Remv, Lymph Node, Deep Axill (55800) Yes 12/20/2019 11:45 AM EDT BREAST CANCER Mastectomy, Simple, Complete (96642) Yes 12/20/2019 11:45 AM EDT BREAST CANCER documented in this encounter Results * SCAN DOC: ORDS - PROVIDER CARE (12/24/2019 12:00 AM EDT) Narrative 12/24/2019 12:00 AM EDT Ordered by an unspecified provider. Scanning Provider MEDIA MGR SCAN EXT O RDR/RSLT * Specimen to Pathology (12/20/2019 1:12 PM EDT) AP Specimen 12/20/2019 1:12 PM EDT 12/20/2019 1:12 PM EDT Narrative [facility] - 12/20/2019 1:12 PM EDT Specimen requisition ordered. ??Separate Pathology report to follow Kevin Rivera MD PATHOLOGY/CYTOLOGY ORDERABLES [facility] [place] [address] * Specimen to Pathology (12/20/2019 12:45 PM EDT) AP Specimen 12/20/2019 12:4 5 PM EDT 12/20/2019 12:45 PM EDT Narrative [facility] - 12/20/2019 12:45 PM EDT Specimen requisition ordered. ??Separate Pathology report to follow Kevin Rivera MD PATHOLOGY/CYTOLOGY ORDERABLES [facility] [place] [address] * Specimen to Pathology (12/20/2019 12:35 PM EDT) AP Specimen 12/20/2019 12:3 5 PM EDT 12/20/2019 12:35 PM EDT Narrative [facility] - 12/20/2019 12:35 PM EDT Specimen requisition ordered. ??Separate Pathology report to follow Kevin Rivera MD PATHOLOGY/CYTOLOGY ORDERABLES [facility] [place] [address] * Surgical Pathology Report (12/20/2019 12:33 PM EDT) Surgical Pathology Report [id number] ? Location: [facility] The signing pathologist has (i) examined the relevant preparation(s) for the specimen(s) and (ii) rendered or confirmed the diagnosis(es). . ? Addendum ADDENDUM DISCUSSION SPECIAL TEST PERFORMED: Test: ??Oncotype DX [facility] Case: ??[id number], block A3 Performing Lab: ??[facility] Performing Lab Case: ??[id number] Reported by: ??Denzel Ellis MD Date reported: ??01/03/2020 For the full text of the [facility] report please refer to [facility] in the electronic health record (eDH). Electronically signed by: ??Gila Mcneil DO Verified: ??01/06/2020 ?Pathologist Performed at: ??-[facility] Dept. of Pathology, [place], [place] ?Surgical Pathology DIAGNOSIS A - Left breast, simple mastectomy - - Invasive lobular carcinoma. - The tumor is 1.4 mm to deep RM in specimen A - See synoptic for final RM. - Lobular carcinoma in-situ, ?? conventional ??and variant types (see Discussion.) - Focal atypical ??ductal ??hyperplasia. B - Left axillary sentinel node, excision - - Two benign nodes, (0/2). C - Left Breast, deep-lateral margin, re-excision - - Focal atypical lobular hyperplasia. Electronically signed by: ??Gila Mcneil DO Verified: ??12/27/2019 ?Pathologist Performed at: ??-[facility] Dept. of Pathology, [place], [place] SYNOPTIC Specimen Parts: ??A-C Specimen ? Procedure: ??Total mastectomy ? Specimen Laterality: ??Left Tumor ? Histologic Type: ??Invasive lobular carcinoma ? Glandular (Acinar) / Tubular Differentiation: ??Score 3 ? Nuclear Pleomorphism: ??Score 2 ? Mitotic Rate: ??Score 1 ? Overall Grade: ??Grade 2 (scores of 6 or 7) ? Tumor Size: ??15 Millimeters (mm) ? Tumor Focality: ??Cannot be determined - See Discussion ? Ductal Carcinoma In Situ (DCIS): ??Not identified ? Lobular Carcinoma In Situ (LCIS): ??Present ? Lymphovascular Invasion: ??Not identified ? Treatment Effect in the Breast: ??No known presurgical therapy Margins ? Invasive Carcinoma Margins: ??Uninvolved by invasive carcinoma . SYNOPTIC ?Distance from Closest Margin (Millimeters): ??Greater than 10 mm ?Closest Margin(s): ??with additional margin re-excision, all RM > 10 mm Lymph Nodes ? Regional Lymph Nodes: ??Uninvolved by tumor cells ?Total Number of Lymph Nodes Examined: ??2 ?Number of [place] Nodes Examined: ??2 Pathologic Stage Classification (pTNM, AJCC 8th Edition) ? Primary Tumor (pT): ??pT1c ? Regional Lymph Nodes (pN): ??pN0 Additional Findings ? Additional Findings: ??Focal variant LCIS ? Pagetoid LCIS of nipple duct Tumor Block(s): ??A3 Normal Block(s): ??C1 CAP eCC May 2019 Annual Release DISCUSSION The tumor is located in the outer breast at 3:00. ??Random sections of the upper outer quadrant show a few foci of invasive lobular carcinoma, up to 2-mm. ??This may either represent the irregular edge of the main tumor or may represent small satellite tumors. The LCIS is mainly conventional, but shows focally enlarged cells with calcification/ single cell necrosis. ?? This LCIS is a variant type with florid features with a few enlarged cells with apocrine morphology. ??A few pleomorphic lobular cells can not be excluded. ADDITIONAL STUDIES Immunohistochemistry Studies: Formalin-fixed, paraffin-embedded tissue sections are studied using the polymer technique with appropriate positive and negative controls. ?These IHC studies provide the pathologist with adjunctive diagnostic information. Antibody specificity has been verified by testing antibodies on a series of in-house tissues with known immunohistochemical performance characteristics. The clinical interpretation of any antibody positive staining or its absence is evaluated within the context of clinical presentation, morphology, histopathological criteria and other diagnostic tests. Block ? Antibody ?Result (Positive/Negative) B1/B2 ?CKAE1/3 ?Negative A12 ?ecadherin ?Positive in ?ductal cells A13 ?ecadherin ?Positive in ductal cells/pagetoid pattern SPECIMEN(S) SUBMITTED A - Left breast short stitch superior, long stitch lateral, excision (1) B - Left axillary sentinel node, excision (1) C - Left Breast Deep Lateral Margin, excision (1) CLINICAL INFORMATION Left breast cancer SPECIMEN PROCESSING A - Labeled/Fixative: Left breast, fresh. Quantity/Size/Weight : Single, 27.4 x 15 x 3.5 cm, 609 g. SPECIMEN DESCRIPTION Resection Specimen: Intact, left, simple ??mastectomy. Orientation: Two stitches orient the specimen: Short stitch superior, long stitch lateral. Skin: 27.4 x 11.3 cm, serrano-pink without lesions grossly. . SPECIMEN PROCESSING Nipple: 0.8 cm diameter, soft, everted. Deep Margin: Smooth. LESION ??Description: 1.5 x 1.3 x 0.8 cm, serrano-pink with central hemorrhage, firm, mass, with ill-defined borders. ??Location: Located at approximately 3 o'clock, 7-8 cm from the nipple which correlates to 12/05/19 mammogram. ??Clip: Identified. ??Margins: 0.2 cm to deep margin. OTHER Parenchyma: Remaining breast parenchyma reveals lobular adipose tissue with interspersed focally dense white breast tissue. Ink Designation: Deep margin inked black; superficial surface at periphery inked blue. Sections/Processing: Casket Assembler sections in 15 cassettes as follows: ?A1: ??Nipple ?A2: ??Base of nipple ?A3-A4: ??Lesion including deep margin, inked black ?A5-A6: ??Additional sections of lesion ?A7-A8: ??Casket Assembler upper inner quadrant ?A9-A10: ??Casket Assembler lower inner quadrant ?A11: ??Casket Assembler central ?A12-A13: ??Casket Assembler upper outer quadrant ?A14-A15: ??Casket Assembler lower outer quadrant Ischemic Time: 1.2 hours B - Labeled/Fixative: Left axillary sentinel node, fresh. Quantity/Size: Single, 2.8 x 1.5 x 0.7 cm. Tissue Description: Adipose tissue with two lymph nodes, up to 1.0 cm. Sections/Processing: Entirely submitted in 2 cassettes as follows: ?B1: ??Single node and surrounding adipose tissue ?B2: ??Single node and surrounding adipose tissue C - Labeled/Fixative: Left breast deep lateral margin, fresh. Quantity/Size: Single, 3.7 x 2.5 x 0.6 cm. Tissue Description: Portion of lobulated, serrano-yellow fibroadipose tissue with black ink on one surface. Specimen is sectioned perpendicular to the inked margin revealing lobular serrano-yellow adipose tissue. The cut surfaces reveal glistening yellow adipose tissue without lesion grossly. Sections/Processing: Entirely submitted in 4 cassettes labeled C1-C4. ??PPS [facility] 12/20/2019 12:3 3 PM EDT Kevin Rivera MD PATHOLOGY/CYTOLOGY ORDERABLES [facility] [place] [address] documented in this encounter Visit Diagnoses Not on filedocumented in this encounter Administered Medications Inactive Administered Medications - up to 3 most recent administrations Medication Order MAR Action Action Date Dose Rate Site acetaminophen (Tylenol) 500 mg tablet 1 dose, Starting on Mon12/20/19 at 1054, Until Mon12/20/19 at 1113, Ivelisse Don.: cabinet override acetaminophen (Tylenol) tablet 1,000 mg 1,000 mg, Oral, ONCE, 1 dose, On Mon12/20/19 at 1115, Maximum dose of acetaminophen is 4000 mg from all sources in 24 hours., Day of Surgery (Day of Procedure), Routine Given 12/20/2019 11:13 AM EDT 1,000 mg scopolamine (TRANSDERM-SCOP) 1 mg patch Patch Removal Transdermal, EVERY 24 HOURS, 1 dose, First dose on Mon12/20/19 at 2130, Remove scopolamine 1.5 mg patch, Recovery (Recovery-Hospital Unit) scopolamine (TRANSDERM-SCOP) 1 mg patch Patch Verification Transdermal, 2 TIMES DAILY, First dose on Mon12/20/19 at 1115, Until Discontinued, Verify scopolamine 1.5 mg patch., Recovery (Recovery-Hospital Unit) technetium (Tc-99m) sulfur colloid injection 0-18 mCi 0-18 mCi, Intravenous, ONCE PRN, 1 dose, Starting on Mon12/20/19 at 1333, Until Mon12/20/19 at 1716, Per Protocol, Radiology Contrast, Routine traMADoL (Ultram) tablet 50 mg 50 mg, Oral, EVERY 6 HOURS PRN, Starting on Mon12/20/19 at 1334, Until Mon12/20/19 at 1716, Pain, Routine documented in this encounter Active and Recently Administered Medications Times are shown in EDT. Scheduled Medication Order 12/18/2019 12/19/2019 12/20/2019 acetaminophen (Tylenol) tablet 1,000 mg (COMPLETED) 1,000 mg, Oral, ONCE, 1 dose, On Mon12/20/19 at 1115, Maximum dose of acetaminophen is 4000 mg from all sources in 24 hours., Day of Surgery (Day of Procedure), Routine 1113 (Given - Provid er: Vannesa Apodaca RN) ceFAZolin (Ancef) 2 g in dextrose 5% 100 mL infusion (COMPLETED) 2 g, Intravenous, EVERY 3 HOURS, 1 dose, First dose on Mon12/20/19 at 1115, Administer over 30 Minutes, Intra-Operative (Intra-Procedure), Indication for (Active or Suspected): Prophylaxis 1200 (Given - Provid er: Felicity Gregorio CRNA) scopolamine (TRANSDERM-SCOP) 1 mg patch Patch Removal Transdermal, EVERY 24 HOURS, 1 dose, First dose on Mon12/20/19 at 2130, Remove scopolamine 1.5 mg patch, Recovery (Recovery-Hospital Unit) scopolamine (TRANSDERM-SCOP) 1 mg patch Patch Verification Transdermal, 2 TIMES DAILY, First dose on Mon12/20/19 at 1115, Until Discontinued, Verify scopolamine 1.5 mg patch., Recovery (Recovery-Hospital Unit) 1115 (Not Given - Pr ovider: Vannesa Apodaca RN - Reason: Patient/family refused) Continuous Medication Order 12/18/2019 12/19/2019 12/20/2019 lactated ringers infusion (CANCELED) 1,000 mL, at 100 mL/hr, Intravenous, CONTINUOUS, Starting on Mon12/20/19 at 1115, Until Mon12/20/19 at 1513, Day of Surgery (Day of Procedure) 1142 (New Bag - Prov ider: Felicity Gregorio CRNA)1312 (New Bag - Provider: Marylu Malagon CRNA)1342 (Anesthesia Volume Adjustment - Provider: Felicity Gregorio CRNA) PRN Medication Order 12/18/2019 12/19/2019 12/20/2019 technetium (Tc-99m) sulfur colloid injection 0-18 mCi 0-18 mCi, Intravenous, ONCE PRN, 1 dose, Starting on Mon12/20/19 at 1333, Until Mon12/20/19 at 1716, Per Protocol, Radiology Contrast, Routine traMADoL (Ultram) tablet 50 mg 50 mg, Oral, EVERY 6 HOURS PRN, Starting on Mon12/20/19 at 1334, Until Mon12/20/19 at 1716, Pain, Routine documented in this encounter Care Teams Knitting Inspector Relationship Specialty Start Date End Date Zeny James APRN [address] [place] [address] PCP - General Family Medicine 09/23/19 documented as of this encounter
--- OUTSIDE RECORDS SUMMARY | 2023-11-02 02:34 | XMS_ITS | Encounter Summary ---
Author Organization [facility] [place] [address] Care Team Providers Care Leather Belt Maker Name Role Phone Zeny James APRN Primary Care Provider Reason for Referral * Diagnostic Test (Routine) - Closed Specialty Diagnoses / Procedures Referred By Nir t Referred To Contact Radiology Diagnoses Malignant neoplasm of pancreatic duct Procedures CT Abdomen w Regino Castro MD [facility] [place] [address] [facility] [place] [address] Referral ID Status Reason Start Date Expiration Date V isits Requested Visits Authorized [id number] Closed Specialty Service Requested 12/09/2019 06/10/2021 1 1 Reason for Visit * Diagnostic Test (Routine) - Closed Specialty Diagnoses / Procedures Referred By Nir potts Referred To Contact Radiology Diagnoses Malignant neoplasm of pancreatic duct Procedures CT Abdomen w Regino Castro MD [facility] [place] [address] [facility] [place] [address] Referral ID Status Reason Start Date Expiration Date V isits Requested Visits Authorized [id number] Closed Specialty Service Requested 12/09/2019 06/10/2021 1 1 Encounter Details Date Type Department Care Team (Late st Contact Info) Description 01/28/2020 11:53 AM EDT - 01/28/2020 11:59 PM EDT Hospital Encounter CT Scan at [facility] [place] [address] Regino Carolina MD [facility] [place] [address] Malignant neoplasm of pancreatic duct Discharge Disposition: Home Social History Tobacco Use [...] Date Blood-Glucose Meter Misc 1 Application by [employer].(Non-Drug; Combo Route) route 3 times daily (before [...] Capsule Take 1 g by mouth daily. cejawf-oibeukde-gygz ase DR (Creon 24) 24,000-76,000 -120,000 unit [...] daily (with meals). 60 tablet 3 04/11/2020 04/11/2020 metoclopramide (Reglan) 10 mg Tablet Take 1 tablet by mouth 4 times daily for 14 days. 56 tablet 04/11/2020 04/11/2020 HYDROmorphone (Dilaudid) 2 mg Tablet Take 1 tablet by mouth every 6 hours as needed for Pain. 10 tablet 04/11/2020 04/11/2020 essorl-znqgmtqr-smoi ase DR (Creon 24) 24,000-76,000 -120,000 unit Capsule, Delayed Release(E.C.) Take 2 capsules by mouth 3 times daily (with meals) for 30 days. 180 capsule 11 04/11/2020 04/11/2020 pantoprazole EC (Protonix) 40 mg Tablet, Delayed Release (E.C.) Take 1 tablet by mouth 2 times daily. 90 tablet 3 04/11/2020 04/11/2020 lancets 33 gauge Misc 1 each by [facility].(Non-Drug; Combo Route) route 3 times daily (before meals). 100 each 11 04/11/2020 04/11/2020 TPN FOR DISCHARGE Inject into the vein. The TPN formula will print on the Discharge Summary Report. 1 each NO 04/11/2020 04/11/2020 novoLIN R Solution Add 8 units to TPN bag every night 10 mL 12 04/11/2020 04/11/2020 Insulin Syringe-Needle U-100 0.3 mL 31 gauge x 5/16 Syringe 1 each by Misc.(Non-Drug; Combo Route) route nightly. 30 Syringe 11 04/11/2020 04/11/2020 Blood-Glucose Meter Misc 1 Application by Misc.(Non-Drug; Combo Route) route 3 times daily (before meals). 1 each 04/11/2020 04/11/2020 carvediloL (Coreg) 3.125 mg Tablet Take 1 [...] every night 10 mL 12 04/11/2020 05/19/2020 sibioa-utdjwhno-dtrh ase DR (Creon) 24,000-76,000 -120,000 unit Capsule, Delayed Release(E.C.) Take 1-2 capsules by mouth 3 times daily (with meals). With Meals: Take 1-2 capsules by mouth. With Snacks: Take 1 capsule by mouth. 270 capsule 3 03/31/2020 09/07/2020 senna-docusate (Pericolace) 8.6-50 mg Tablet Take 2 tablets by mouth 2 times daily. 03/31/2020 04/11/2020 omeprazole (PriLOSEC) 40 mg Capsule, Delayed Release(E.C.) Take 1 capsule by mouth daily. 90 capsule 3 03/31/2020 04/11/2020 CALCIUM CARBONATE-VITAMIN D3 ORAL Take 1 tablet by mouth daily. 01/19/2023 fluticasone propionate (FLONASE) 50 mcg/actuation Francis, Suspension 1 spray by Each Nare route daily as needed. 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 Start mid January 2020. 90 tablet 3 01/09/2020 12/08/2020 omeprazole (PriLOSEC) 20 mg Capsule, Delayed Release(E.C.) Take 20 mg by mouth every other day. 10/25/2019 04/11/2020 vitamin E 400 unit capsule 02/11/2010 03/31/2020 documented as of this encounter Plan of Treatment Upcoming Encounters Date Type Department Care Team (Late st Contact Info) Description 11/02/2023 1:00 PM EDT Office Visit Hematology/Oncology at [address] [phone] Mary Nails [address] MEDICAL ONCOLOGY [place], [place] [phone] 11/02/2023 1:30 PM EDT Infusion Hematology Oncology at [address] [phone] documented as of this encounter Procedures Procedure Name Priority Date/Time Associated Diagnosis Comments CT ABDOMEN W CONTRAST Routine 01/28/2020 1:35 PM EDT Malignant neoplasm of pancreatic duct documented in this encounter Results * CT [...] below. Regino Carolina MD IMG CT ORDERABLES documented in this encounter Visit Diagnoses Diagnosis Malignant neoplasm of pancreatic duct documented in this encounter Administered Medications Inactive Administered Medications - up to 3 most recent administrations Medication Order MAR Action Action Date Dose Rate Site iohexoL (Omnipaque) 350 mg/mL solution 0-200 mL 0-200 mL, Intravenous, ONCE PRN, 1 dose, Starting on Mon01/28/20 at 1335, Until Mon01/28/20 at 1335, Per Protocol, Warning Vesicant/Irritant Medication , Radiology Contrast, Routine Given 01/28/2020 1:35 PM EDT 80 mLs documented in this encounter Care Teams Leather Belt Maker Relationship Specialty Start Date End Date Vasutom Zeny, JESUS ALBERTO [address] [place] [address] PCP - General Family Medicine 09/23/19 documented as of this encounter
--- OUTSIDE RECORDS SUMMARY | 2023-11-02 02:34 | XMS_ITS | Encounter Summary ---
Author [facility] [place] [address] Care Team Providers Care Psychological Operations Officer Name Role Phone Zeny James JESUS ALBERTO Primary Care Provider Encounter Details Date Type Department Care Team (Latest Contact Info) Description 12/18/2019 9:15 AM EDT Laboratory Appointment Lab [address] [phone] Malignant neoplasm of left breast in female, [...] PM EDT Office Visit Hematology/Oncology at [address] [phone] Mary Nails APRN [address] [place] [address] MEDICAL ONCOLOGY [place], [place] [phone] 11/02/2023 1:30 PM EDT Infusion Hematology Oncology at [address] [phone] documented as of this encounter Procedures Procedure Name Priority Date/Time Associated Diagnosis Comments HEMOGRAM Routine 12/18/2019 8:46 AM EDT Malignant neoplasm of left breast in female, estrogen receptor positive, unspecified site of breast DIFFERENTIAL, AUTOMATED Routine 12/18/2019 8:46 AM EDT Malignant neoplasm of left breast in female, estrogen receptor positive, unspecified site of breast HC VENIPUNCTURE Routine 12/18/2019 8:46 AM EDT Malignant neoplasm of left breast in female, estrogen receptor positive, unspecified site of breast documented in this encounter Results * (ABNORMAL) Differential, Automated (12/18/2019 8:46 AM EDT) Neutrophils % 72.2 % [facility] Neutr Abs (ANC) 7.01(H) 1.70 - 6.10 x10(3)/ L [facility] Lymphocytes % 14.1 % [facility] Lymphocytes Abs 1.4 0.9 - 3.2 x10(3)/ L [facility] Monocytes % 9.2 % [facility] Monocyte Abs 0.9 0.3 - 0.9 x10(3)/ L [facility] Eosinophils % 3.4 % [facility] Eosinophils Abs 0.3 0.0 - 0.4 x10(3)/ L [facility] Basophils % 0.8 % [facility] Basophils Abs 0.1 0.0 - 0.1 x10(3)/ L [facility] Immature Gran % 0.30 % [facility] Comment: Immature granulocytes(IG's)percentage and absolute count will include metamyelocytes, myelocytes, and promyelocytes. Blood smears from CBCs yielding IG's will be scanned manually for concordance. If this scan disagrees with the automated IG or if promyelocytes are noted, a manual differential will be performed. Nory Gran Abs 0.03 0.00 - 0.04 x10(3)/mc L [facility] Blood specimen (specimen) 12/18/2019 8:46 AM EDT 12/18/2019 8:54 AM EDT Narrative Resulting Agency Comment Spec In Lab Susan Rivera MD HEMATOLOGY ORDERABL ES Performing Organization Address City/[facility]/ZIP Co de Phone Number [facility] [place] [address] * (ABNORMAL) Hemogram (12/18/2019 8:46 AM EDT) WBC 9.7(H) 4.0 - 9.5 x10(3)/[facility] RBC 4.71 4.00 - 5.21 x10(6)/[facility] Hemoglobin 14.3 11.7 - 15.5 gm/dL [facility] Hematocrit 43.7 35.7 - 45.8 % [facility] MCV 92.8 82.6 - 94.4 fL [facility] MCH 30.4 27.1 - 32.0 pg [facility] MCHC 32.7 31.7 - 35.0 gm/dL [facility] Platelets 290 145 - 357 x10(3)/[facility] RDWSD 44.0 37.0 - 46.0 [facility] RDWCV 12.8 11.5 - 14.1 % [facility] MPV 9.9 7.6 - 12.9 [facility] nRBC % Auto 0.0 % [facility] nRBC Abs Auto 0.000 0.000 - 0.000 x10(3)/[facility] Blood specimen (specimen) 12/18/2019 8:46 AM EDT 12/18/2019 8:54 AM EDT Narrative Resulting Agency Comment Spec In Lab Susan Rivera MD HEMATOLOGY ORDERABL ES Performing Organization Address City/[facility]/ZIP Co de Phone Number [facility] [place] [address] documented in this encounter Visit Diagnoses Diagnosis Malignant neoplasm of left breast in female, estrogen receptor positive, unspecified site of breast documented in this encounter Care Teams Psychological Operations Officer Relationship Specialty Start Date End Date Zeny James APRN [address] [place] [address] [address] [facility] [address] [place] [address] PCP - General Family Medicine 09/23/19 documented as of this encounter
--- OUTSIDE RECORDS SUMMARY | 2023-11-02 02:34 | XMS_ITS | Encounter Summary ---
Author Organization [facility] [place] [address] Care Team Providers Care Collator Name Role Phone Zeny James JESUS ALBERTO Primary Care Provider Encounter Details Date Type Department Care Team (Late st Contact Info) Description 12/18/2019 Notes Only Care Management [facility] [place] [phone] Lora Jang MSW Social History Tobacco Use Types Packs/Day Years Used Date Smoking Tobacco: Never Smokeless Tobacco: Never Sex and Gender Information Value Date Recorded Sex Assigned at Not on file Gender Identity Not on file Sexual Orientation Not on file documented as of this encounter Progress Notes * Lora Jang MSW - 12/18/2019 11:14 AM EDT OFFICE OF CARE MANAGEMENT/CONTINUING LOG BRANDER Reason for referral: Linda Serrano is a 74 year old, female who was seen in the multidisciplinary breast care clinic for a surgical consult as she was recently diagnosed with ER+, IL-, left breast, ILC. Pt met with Dr. Rivera and has decided to have a mastectomy without breast reconstruction. Pt has a history of right breast cancer and was treated in 2000 with MRM, chemo, RT and Tamoxifen for five years as well as an AI for a short while. 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 Pt states she is much more worried about her pancreas than her breast cancer. The plan is for her to meet with Dr. Carolina in January for further evaluation. CCM met with pt to complete a psychosocial assessment and to explain my role in the breast program. Pt was encouraged to contact me if she has any questions or concerns. Living arrangements/social supports: Pt lives in [place], [place]. She lost her seven years ago and has three sons who live in [place], [place] and [place]. Pt states she has support from her family. Employment/Insurance/Finances: Pt is retired and has Medicare A and B, BC/BS [employer] and a Part D drug plan. Tobacco/drug/alcohol history: Pt states she does not smoke and has an occasional drink. Advance Directives: Pt has completed advance directives but does not want the hospital to have copies. She has designated her son, Yordy, as her DPOA for Health Care. Pt states she has spoken to her sons about her wishes. Adjustment to illness/Mental Health Concerns: Pt indicated her distress level was a three prior to meeting with Dr. Rivera. She is being evaluated for IPMN and quite anxious about this diagnosis.Pt states she has support from her sons. I reviewed the on-line support and services available to pt in the cancer center. Plan: CCM will continue to follow pt to assess and assist with their psychosocial needs. KYLIE Farias [facility]/[place] [phone] Pager #[phone] documented in this encounter Plan of Treatment Upcoming Encounters Date Type Department Care Team (Late st Contact Info) Description 11/02/2023 1:00 PM EDT Office Visit Hematology/Oncology at [address] [phone] Mary Nails APRN [address] [place] [address] DR MEDICAL ONCOLOGY [place], [place] [phone] 11/02/2023 1:30 PM EDT Infusion Hematology Oncology at [address] [phone] documented as of this encounter Visit Diagnoses Not on filedocumented in this encounter Care Teams Collator Relationship Specialty Start Date End Date Zeny James APRN [address] [place] [address] PCP - General Family Medicine 09/23/19 documented as of this encounter
--- OUTSIDE RECORDS SUMMARY | 2023-11-02 02:34 | XMS_ITS | Encounter Summary ---
Author Organization [facility] Address [facility] [place] [address] Care Team Providers Care Media Production Manager Name Role Phone Zeny James [employer]ORY WORK[employer] Primary Care Provider [phone] Encounter Details Date Type Department Care Team (Latest Contact Info) Description 01/09/2020 9:37 AM EDT - 01/09/2020 11:59 PM EDT Hospital Encounter [place]ology [place] [phone] Malignant neoplasm of upper-outer quadrant of left breast in female, estrogen receptor positive; Malignant neoplasm of pancreatic duct Discharge Disposition: [...] Capsule Take 1 g by mouth daily. anastrozole (Arimidex) 1 mg TabletIndications:Flavia gnant neoplasm of upper-outer quadrant of left breast in female, estrogen receptor positive Take 1 tablet by mouth daily. Start mid January 2020. 90 tablet 3 01/09/2020 12/08/2020 PravachoL 20 mg Tablet 08/20/201901/27 omeprazole (PriLOSEC) 20 mg Capsule, Delayed Release(E.C.) Take 20 mg by mouth every other day. 10/25/2019 04/11/2020 fdgjtf-ygwxfxee-xmxioo e DR (Creon) 24,000-76,000 -120,000 unit Capsule, Delayed [...] 1:00 PM EDT Office Visit Hematology/Oncology at [address] [phone] Mary Nails APRN [address] [place] [address] MEDICAL ONCOLOGY [place], [place] [phone] 11/02/2023 1:30 PM EDT Infusion Hematology Oncology at [address] [phone] Scheduled Orders Name Type Priority Associated Diagnoses Orde r Schedule Comprehensive metabolic panel (non-fasting) Lab Routine Malignant neoplasm of pancreatic duct 1 Occurrences starting 01/09/2020 until 01/09/2020 documented as of this encounter Procedures Procedure Name Priority Date/Time Associated Diagnosis Comments HC CARBOHYDRATE ANTIGEN 19-9 Routine 01/09/2020 9:45 AM EDT Malignant neoplasm of pancreatic duct COMPREHENSIVE METABOLIC PANEL (NON-FASTING) STAT 01/09/2020 9:45 AM EDT Malignant neoplasm of upper-outer quadrant of left breast in female, estrogen receptor positive documented in this encounter Results * Carbohydrate Antigen 19-9 (01/09/2020 9:45 AM EDT) CA 19-9 24.6 <=35.0 u/ml [facility] Blood specimen (specimen) 01/09/2020 9:45 AM EDT 01/09/2020 10:00 AM EDT Narrative Resulting Agency Comment Spec In Lab Regino Carolina MD CHEMISTRY ORDERABL ES [facility] [place] [address] * (ABNORMAL) Comprehensive metabolic panel (non-fasting) (01/09/2020 9:45 AM EDT) Glucose Lvl 102 65 - 199 mg/dL [facility] Comment:Diabetes: >=200 mg/d L plus symptoms BUN 12 8 - 18 mg/dL [facility] Creatinine 0.72 0.70 - 1.20 mg/dL [facility] Sodium 133(L) 135 - 145 mmol/L [facility] Potassium 4.3 3.5 - 5.0 mmol/L [facility] Comment: Please note: ??Patients with WBC >100,000 may have falsely elevated Potassium levels. ??For accurate Potassium quantification in these patients send serum separator tube (gold top) for subsequent determinations. ??Contact the Clinical Chemistry Laboratory if there are any questions. Chloride 95(L) 98 - 107 mmol/L [facility] CO2 27 22 - 31 mmol/L [facility] Anion Gap 11 5 - 15 mmol/L [facility] Calcium 10.9(H) 8.5 - 10.5 mg/dL [facility] Total Protein 7.2 6.1 - 8.0 gm/dL [facility] Albumin 4.7 3.2 - 5.2 gm/dL [facility] AST 32(H) 0 - 30 unit/L [facility] ALT 31(H) 0 - 30 unit/L [facility] Alk Phos 113(H) 35 - 105 unit/L [facility] Total Bilirubin 0.5 0.2 - 1.3 mg/dL [facility] Estimated GFR 83 >=60 mL/min/1. 73 m?? [facility] Comment: The eGFR was calculated using the CKD-EPI equation. As with all creatinine based estimates of kidney function, eGFR values calculated with the CKD-EPI equation are not accurate in patients with acute kidney failure, extremes of body mass or the acutely ill. [email or web address] HOLD[facility]LEnkf eGFR 96 >=60 mL/min/1. 73 m?? [facility] Comment: The eGFR was calculated using the CKD-EPI equation. As with all creatinine based estimates of kidney function, eGFR values calculated with the CKD-EPI equation are not accurate in patients with acute kidney failure, extremes of body mass or the acutely ill. [email or web address]LE[facility] Blood specimen (specimen) 01/09/2020 9:45 AM EDT 01/09/2020 10:00 AM EDT Narrative Resulting Agency Comment Spec In Lab Roosevelt Dueñas MD CHEMISTRY ORDERABLES Performing Organization Address City/State/[facility] Co de Phone Number [facility] [place] [address] documented in this encounter Visit Diagnoses Diagnosis Malignant neoplasm of upper-outer quadrant of left breast in female, estrogen receptor positive Malignant neoplasm of pancreatic duct documented in this encounter Care Teams Media Production Manager Relationship Specialty Start Date End Date Zeny James APRN [address] [place] [address] PCP - General Family Medicine 09/23/19 documented as of this encounter
--- OUTSIDE RECORDS SUMMARY | 2023-11-02 02:34 | XMS_ITS | Encounter Summary ---
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 Procedures DXA Central Spine, Hip, and/or Whole Body (Generic) Roosevelt Dueñas MD [facility] HEMATOLOGY/[place] [address] [facility] Rad Xray [address] [place] [address] [place] [address] Referral ID Status Reason Start Date Expiration Date V isits Requested Visits Authorized [id number] Closed Specialty Service Requested 01/09/2020 07/08/2021 1 1 Reason for Visit * Diagnostic Test (Routine) - Closed Specialty Diagnoses / Procedures Referred By Contac t Referred To Contact Radiology Diagnoses Malignant neoplasm of upper-outer quadrant of left breast in female, estrogen receptor positive Osteopenia, unspecified location USP current use of aromatase inhibitor Procedures DXA Central Spine, Hip, and/or Whole Body (Generic) Roosevelt Dueñas MD [facility] HEMATOLOGY/[place] [address] [facility] Rad Xray [address] [place] [address] Dr [place], [place] [phone] Referral ID Status Reason Start Date Expiration Date V isits Requested Visits Authorized [id number] Closed Specialty Service Requested 01/09/2020 07/08/2021 1 1 Encounter Details Date Type Department Care Team (Latest Contact Info) Description 01/28/2020 8:42 AM EDT - 01/28/2020 11:52 AM EDT Hospital Encounter XRay at [address] [place] [phone] Roosevelt Dueñas MD [facility] HEMATOLOGY/[place] [address] Malignant neoplasm of upper-outer quadrant of left breast in female, estrogen receptor positive; Osteopenia, unspecified location; 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 1 each 04/11/2020 vitamin E (vitamin E) 400 unit Capsule Take 1 capsule by mouth daily. 03/31/2020 acetaminophen (Tylenol) 500 mg Tablet Take 2 tablets by mouth every 6 hours as needed for Pain. 03/31/2020 albuteroL 90 mcg/actuation HFA Aerosol Inhaler Inhale [...] Capsule Take 1 g by mouth daily. foyjhg-dqcvbudd-wnls ase DR (Creon 24) 24,000-76,000 -120,000 unit [...] needed for Pain. 10 tablet 04/11/2020 04/11/2020 byhnxq-fbqkwcka-kwox ase DR (Creon 24) 24,000-76,000 -120,000 unit [...] 04/11/2020 Blood-Glucose Meter Misc 1 Application by [facility]Non-Drug; Combo Route) route 3 times daily (before [...] gauge x 5/16 Syringe 1 each by Mis.(Non-Drug; Combo Route) route nightly. 30 Syringe 11 04/11/2020 05/19/2020 lancets 33 gauge Misc 1 each by [facility]Non-Drug; Combo Route) route 3 times daily (before meals). 100 each 11 04/11/2020 05/19/2020 novoLIN R Solution Add 8 units to TPN bag every night 10 mL 12 04/11/2020 05/19/2020 ucaqjq-gxyxhoaj-rxls ase DR (Creon) 24,000-76,000 -120,000 unit Capsule, [...] mouth daily. 90 capsule 3 03/31/2020 04/11/2020 Creon 24,000-76,000 -120,000 unit Capsule, Delayed Release(E.C.) [...] PM EDT Office Visit Hematology/Oncology at [address] [phone] Mary Nails [address] MEDICAL ONCOLOGY [place], [place] [phone] 11/02/2023 1:30 PM EDT Infusion Hematology Oncology at [address] [phone] documented as of this encounter Procedures Procedure Name Priority Date/Time Associated Diagnosis Comments DXA CENTRAL SPINE, HIP, AND/OR WHOLE BODY (GENERIC) Routine 01/28/2020 9:43 AM EDT Malignant neoplasm of upper-outer quadrant of left breast in female, estrogen receptor positive Osteopenia, unspecified location USP current use of aromatase inhibitor documented in this encounter Results * DXA Central Spine, Hip, and/or [...] BMD measurements and plots are available in [employer] under the imaging tab. Paper copies will be sent to providers without E- access. If you have received this report without the data sheet and do not have access to [employer], please contact [facility] at [phone] Monday thru Monday 8am-4pm. Thank you for letting us participate in the care of this patient. For questions regarding this report, please contact the number below. ? Electronically signed by: Maria Esther Stallworth MD, [facility] ([phone]), at 01/28/2020 1:15 PM Narrative 01/28/2020 1:15 [...] to represent a statistically significant change. At [facility], least significant change for bone mineral density measurements at the spine region of interest: 0.031 g/cm2 Total hip: Compared to the previous, 0.018 ??g/cm2 (2.4 %) decrease. This change is so small that it is unlikely to represent a statistically significant change. Compared to the baseline, 0.045 g/cm2 (5.7 %) decrease. At [facility], least significant change for bone mineral density [...] to represent a statistically significant change. At [facility], least significant change for bonemineral density measurements at the spine region of interest: 0.031 g/cm2 Total hip: Compared to the previous, 0.018 g/cm2 (2.4 %) decrease. This change is sosmall that it is unlikely to represent a statistically significant change. Compared to the baseline, 0.045 g/cm2 (5.7 %) decrease. At [facility], least significant change for bonemineral density measurements [...] BMD measurements and plots are available in EL[employer] Appsunder the imaging tab. Paper copies will be sent to providers without [employer]- access.If you have received this report without the data sheet and do not haveaccess to [employer], please contact [facility] at [phone] Monday thruFriday 8am-4pm. Thank you for letting us participate in the care of this patient. Forquestions regarding this report, please contact the number below. 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
--- OUTSIDE RECORDS SUMMARY | 2023-11-02 02:34 | XMS_ITS | Encounter Summary ---
Author Organization [facility] [place] [address] Care Team Providers Care Residential Program Manager Name Role Phone Zeny James APRN Primary Care Provider [phone] Encounter Details Date Type Department Care Team (Late st Contact Info) Description 12/20/2019 11:42 AM EDT Anesthesia Event [facility] [place] [address] Elton Mane MD [facility] [address] Lili Colon [facility] [place] [address] Anesthesia Record Procedure Summary Procedure Name Responsible Anesthesiologist Anesthesia Start Time Anesthesia Stop Time MASTECTOMY, SIMPLE, COMPLETE (WRVU 15) (Left: Breast) Elton Mane MD 12/20/19 1142 12/20/19 1343 Events Date Time Event Comment 12/20/2019 1127 1142 Start 1145 AN Verify 1145 An Start Data 1148 An Induction 1150 An Intubation 1200 Anesthesia Ready 1310 Break/Relief In I assumed ca re for Break Relief before which we: 1. Identified the patient 2. Identified the responsible provider(s) 3. Reviewed the pertinent medical history 4. Discussed the surgical plan and course 5. Reviewed intra-op anesthesia management and issues during anesthesia 6. Set expectations for the relief (and/or post-procedure) period 7. Allowed opportunity for questions and acknowledgement of understanding RINA MALAGON CRNA 1330 Extubation/LMA Out 1335 an stop data 1343 Recovery or ICU Handoff Alexandra ent care was transferred to the destination unit staff after review of the patient's medical history, current anesthetic/surgical status and plan, according to the Provider Handoff Checklist. 1343 Stop Meds Name Total Midazolam 2 mg fentaNYL 100 mcg IV Lidocaine 40 mg Propofol 150 mg Propofol INF 247.95 mg Dexamethasone 4 mg Ondansetron 4 mg Ketorolac 15 mg PHENYLephrine 80 mcg ePHEDrine 10 mg ceFAZolin (Ancef) 2 g in dextrose 5% 100 mL infusion 2 g Dexmedetomidine 4 mcg BUpivacaine 0.5% 25 mL lactated ringers infusion 1,200 mL * Agents Name O2 Air N2O Sevoflurane (et) * Blood No blood administrations on file. Lines, Drains, and Airways Type Details Placement Removal Drain/Device Site 12/20/19; 1301; Left ; breast; other (see comments) (19 fr Darius drain to bulb suction); Miguel 12/20/19 1301 by Aurelia Morrell, RN (RETIRED) Peripheral IV Line - Single Lumen metacarpal vein (top of hand), left; 20 gauge; shy coats B; 12/20/19; 1502 11/15/19 1223 by 12/20/19 1502 by Elton Hubbard (RETIRED) Peripheral IV Line - Single Lumen 12/20/19; 1137; median vein (underside of arm), left; oypg-teo-xtsghf catheter system; 22 gauge; [place]; intradermal injection; 2; 12/20/19; 1502 12/20/19 1137 by Vannesa Apodaca, LOS 12/20/19 1502 by Elton Hubbard Supraglottic Mask Ventilation: No t Attempted (0); LMA Type: iGel; LMA Size: 3; Inserted by: Darline ANAND; Removal Date: 12/20/19; Removal Time: 133212/20/19 1150 by Felicity Gregorio CRNA 12/20/19 1333 by Rina Malagon CRNA Incision 12/20/19; 1218; carlos alberto st; 12/13/21 (LDA cleanup utility RA#[id number]); 1715 (LDA cleanup utility RA#[id number]) 12/20/19 1218 by Aurelia Morrell RN 12/13/21 1715 by Antonio Cortes documented in this encounter Social History Tobacco Use Types Packs/Day Years Used Date Smoking Tobacco: Never Smokeless Tobacco: Never Sex and Gender Information Value Date Recorded Sex Assigned at Not on file Gender Identity Not on file Sexual Orientation Not on file documented as of this encounter OR Notes * Anesthesia Postprocedure Evaluation - Elton Mane MD - 12/20/2019 2:28 PM EDT Department of Anesthesiology Post-procedure Note Patient: Linda Serrano Procedure Summary Date: 12/20/19 [place] / [place] [facility] [place] [address] [place] [address] Anesthesia Start: 1142 Anesthesia Stop: 1343 Procedures: MASTECTOMY, SIMPLE, COMPLETE (WRVU 15.85) (Left Breast) BIOPSY OR EXCISION OF LYMPH NODE(S), OPEN, DEEP AXILLARY NODE(S) (WRVU 6.43) (Left Axilla) INTRAOPERATIVE ID (MAPPING) SENTINEL LYMPH NODE,INCLUDES INJECTION (WRVU 2.5) (Left ) MODIFIER SENTINEL NODE EXCISION (Left ) Diagnosis: (BREAST CANCER) Surgeon: Susan Rivera MD Responsible Provider: Elton Mane MD Anesthesia Type: general ASA Status: 3 All Anesthesia Providers: Anesthesiologist: Elton Mane MD FOOD SAFETY OFFICER: Felicity Gregorio CRNA Vitals Value Taken Time BP 153/73 12/20/19 1404 Temp 36 ??C (96.8 ??F) 12/20/19 1338 Pulse 70 12/20/19 1407 Resp 18 12/20/19 1404 SpO2 98 % 12/20/19 1407 Pain Level 2 12/20/19 1400 Vitals shown include unvalidated device data. Patient Location: [facility] Level of Consciousness: Awake and Alert Pain Management: Satisfactory Analgesia PONV: None Cardiovascular Status: Hemodynamically Stable Respiratory Status: Stable Respiratory Status Postoperative Fluid Status: Intravascular EUvolemia Possible Anesthetic Complications: NONE apparent at time of evaluation Final Primary Anesthesia Type: General (The anesthetic type performed was the same as planned.) Comments: ELTON MANE MD * Anesthesia Procedure Notes - Elton Mane MD - 12/20/2019 1:13 PM EDT Associated Order(s): Anesthesia Block Anesthesia Block Date/Time: 12/20/2019 11:54 AM Performed by: Elton Mane MD Authorized by: Elton Mane MD Start Time: 12/20/2019 11:48 AM End Time: 12/20/2019 11:53 AM The patient was greeted; the risks and benefits of the procedure were reviewed. Indication: Post-op Pain Control Post-op pain management at the request of surgeon. Block Type: PEC block Laterality: Left Position: Supine Prep: Chlorhexidine, patient draped and mask, cap, sterile gloves, hand hygeine V-bwtdy-nczom 21 10 cm Ultrasound Guided: YES and in-plane. Ultrasound Image(s) were saved. Ultrasound guidance was used to identify the targeted neuronal structure. Ultrasound was also used to identify needle position and to identify tissue (bone, muscle, and blood vessels) to prevent inadvertent intraneural or intravascular needle placement and injection. The spread of local anesthetic was confirmed with live ultrasound imaging. Single-Shot: Single-shot BUpivacaine 0.5%, 25 mL no complications Attending Physician:: Elton Mane MD 15 ml's in PEC 2 plane, 10 ml's PEC 1 plane * Anesthesia Preprocedure Evaluation - Elton Mane MD - 12/20/2019 11:24 AM EDT Pre-Anesthesia Evaluation for: Linda Maggie a 74 y.o. female. Procedure(s): MASTECTOMY, SIMPLE, COMPLETE (WRVU 15.85) BIOPSY OR EXCISION OF LYMPH NODE(S), OPEN, DEEP AXILLARY NODE(S) (WRVU 6.43) INTRAOPERATIVE ID (MAPPING) SENTINEL LYMPH NODE,INCLUDES INJECTION (WRVU 2.5) MODIFIER SENTINEL NODE EXCISION Patient Active Problem List Diagnosis ??? Malignant neoplasm of left breast in female, estrogen receptor positive Dx: 12/05/19 [facility] [place]?? IPMN (intraductal papillary mucinous neoplasm) ??? [...] N/A 12/05/2019 Mammo Stereotactic Biopsy Left 12/05/2019 [facility] RAD MAMMOGRAPHY ??? MASTECTOMY Right with RT ??? PRO COLONOSCOPY, DIAGNOSTIC 01/07/2014 COLONOSCOPY, DIAGNOSTIC performed by Izzy Johnson MD at [facility] ENDOSCOPY ??? PRO ENDOSCOPIC US EXAM, ESOPH N/A 11/15/2019 UPPER EUS- ENDOSCOPIC ULTRASOUND performed by Ralf Urrutia MD at [facility] ENDOSCOPY Social History Tobacco Use ??? Smoking status: [...] 24 hrs: Temp Pulse Resp BP SpO2 12/20/19 1101 36.2 ??C (97.2 ??F) 83 16 158/78 93 % Body mass index is 21.38 kg/m??. Height: 156.2 cm (5' 1.5) Weight: 52.2 kg (115 lb) Airway Assessment: Mallampati: I TM distance: >3 FB Neck ROM: full Cardiovascular Assessment: cardiovascular exam normal Pulmonary Assessment: pulmonary exam normal Dental Assessment: (+) upper dentures Misc Assessment: IV access: Peripheral line Anesthesia Plan: ASA 3 general, with a(n) intravenous induction 74 yo presents for LEFT mastectomy and sentinel node biopsy Mild nausea with anesthesia prior (declines scope patch) Asthma Htn (not on medication) Denies recent CP SOB URI or GERD Nonsmoker + etoh (wine) Discussed risks and benefits of GA and PEC block (discussed with surgeon who requests a block for post-op pain control ELTON MANE MD Region - Other Informed Consent: Anesthetic plan and risks discussed with patient. Plan discussed with FOOD SAFETY OFFICER. PAT Clinic Note documented in this encounter Plan of Treatment Upcoming Encounters Date Type Department Care Team (Late st Contact Info) Description 11/02/2023 1:00 PM EDT Office Visit Hematology/Oncology at [address] [phone] Mary Nails APRN [address] [place] [address] MEDICAL ONCOLOGY [place], [place] [phone] 11/02/2023 1:30 PM EDT Infusion Hematology Oncology at [address] [phone] documented as of this encounter Procedures Procedure Name Priority Date/Time Associated Diagnosis Comments ANESTHESIA BLOCK Routine 12/20/2019 1:13 PM EDT documented in this encounter Results * Anesthesia Block (12/20/2019 1:13 PM EDT) Narrative Elton Mane MD - 12/20/2019 1:13 PM EDT Elton Mane MD ? 12/20/2019 ??1:14 PM Anesthesia Block Date/Time: 12/20/2019 11:54 AM Performed by: Elton Mane MD Authorized by: Elton Mane MD Start Time: ??12/20/2019 11:48 AM End Time: ??12/20/2019 11:53 AM The patient was greeted; the risks and benefits of the procedure were reviewed. ?? Indication: ??Post-op Pain Control Post-op pain management at the request of surgeon. ?? Block Type: ??PEC block Laterality: ??Left Position: ??Supine Prep: ??Chlorhexidine, patient draped and mask, cap, sterile gloves, hand hygeine X-yxodr-ombru 21 10 cm Ultrasound Guided: ??YES and in-plane. ??Ultrasound Image(s) were saved. Ultrasound guidance was used to identify the targeted neuronal structure. Ultrasound was also used to identify needle position and to identify tissue (bone, muscle, and blood vessels) to prevent inadvertent intraneural or intravascular needle placement and injection. The spread of local anesthetic was confirmed with live ultrasound imaging. ?? Single-Shot: ??Single-shot BUpivacaine 0.5%, 25 mL no complications ?? Attending Physician:: ??Elton Mane MD 15 ml's in PEC 2 plane, 10 ml's PEC 1 plane Elton Mane MD [employer]CHOOL TE[employer] [facility] documented in this encounter Visit Diagnoses Not on filedocumented in this encounter Administered Medications Inactive Administered Medications - up to 3 most recent administrations Medication Order MAR Action Action Date Dose Rate Site BUpivacaine (PF) (MARCAINE) 0.5 % (5 mg/mL) injection Starting on Mon12/20/19 at 1154, Until Mon12/20/19 at 1154, Anesthesia Intra-op, Routine Given 12/20/2019 11:54 AM EDT 25 mLs ceFAZolin (Ancef) 2 g in dextrose 5% 100 mL infusion 2 g, Intravenous, EVERY 3 HOURS, 1 dose, First dose on Mon12/20/19 at 1115, Administer over 30 Minutes, Intra-Operative (Intra-Procedure), Indication for (Active or Suspected): Prophylaxis Given 12/20/2019 12:00 PM EDT 2 g dexamethasone (Decadron) injection PRN, Starting on Mon12/20/19 at 1152, Until Mon12/20/19 at 1343, Anesthesia Intra-op, Routine Given 12/20/2019 11:52 AM EDT 4 mg dexmedetomidine (PRECEDEX) injection PRN, Starting on Mon12/20/19 at 1147, Until Mon12/20/19 at 1343, Anesthesia Intra-op, Routine Given 12/20/2019 11:47 AM EDT 4 mcg ePHEDrine 5 mg/mL multi-dose injection PRN, Starting on Mon12/20/19 at 1202, Until Mon12/20/19 at 1343, Anesthesia Intra-op, Routine Given 12/20/2019 12:04 PM EDT 5 mg Given 12/20/2019 12:02 PM EDT 5 mg fentaNYL 50 mcg/mL multi-dose injection PRN, Starting on Mon12/20/19 at 1148, Until Mon12/20/19 at 1343, Anesthesia Intra-op, Routine Given 12/20/2019 12:33 PM EDT 50 mcg Given 12/20/2019 12:10 PM EDT 25 mcg Given 12/20/2019 11:48 AM EDT 25 mcg ketorolac (TORADOL) injection PRN, Starting on Mon12/20/19 at 1153, Until Mon12/20/19 at 1343, Anesthesia Intra-op, Routine Given 12/20/2019 11:53 AM EDT 15 mg lactated ringers infusion 1,000 mL, at 100 mL/hr, Intravenous, CONTINUOUS, Starting on Mon12/20/19 at 1115, Until Mon12/20/19 at 1513, Day of Surgery (Day of Procedure) New Bag 12/20/2019 1:12 PM EDT New Bag 12/20/2019 11:42 AM EDT lidocaine (PF) (XYLOCAINE) 100 mg/5 mL (2 %) injection PRN, Starting on Mon12/20/19 at 1148, Until Mon12/20/19 at 1343, Anesthesia Intra-op, Routine Given 12/20/2019 11:48 AM EDT 40 mg midazolam (PF) (VERSED) multi-dose injection PRN, Starting on Mon12/20/19 at 1142, Until Mon12/20/19 at 1343, Anesthesia Intra-op, Routine Given 12/20/2019 11:42 AM EDT 2 mg ondansetron (ZOFRAN) injection PRN, Starting on Mon12/20/19 at 1152, Until Mon12/20/19 at 1343, Anesthesia Intra-op, Routine Given 12/20/2019 11:52 AM EDT 4 mg PHENYLephrine in NS (PF) (ANNE-SYNEPHRINE) 0.8 mg/10 mL (80 mcg/mL) multi-dose injection Syrg PRN, Starting on Mon12/20/19 at 1200, Until Mon12/20/19 at 1343, Anesthesia Intra-op, Routine Given 12/20/2019 12:00 PM EDT 80 mcg propofoL (Diprivan) 10 mg/mL bolus injection (Anesthesia) PRN, Starting on Mon12/20/19 at 1148, Until Mon12/20/19 at 1343, Anesthesia Intra-op Given 12/20/2019 11:48 AM EDT 150 mg propofoL (Diprivan) infusion CONTINUOUS PRN, Starting on Mon12/20/19 at 1150, Until Mon12/20/19 at 1343, Anesthesia Intra-op, Routine New Bag 12/20/2019 11:50 AM EDT 50 mcg/kg/min 15.7 mL/hr documented in this encounter Care Teams Residential Program Manager Relationship Specialty Start Date End Date Zeny James APRN [address] [place] [address] PCP - General Family Medicine 09/23/19 documented as of this encounter
--- OUTSIDE RECORDS SUMMARY | 2023-11-02 02:34 | XMS_ITS | Encounter Summary ---
Author Organization [facility] [place] [address] Care Team Providers Care Rehanger Name Role Phone Zeny James JESUS ALBERTO Primary Care Provider Reason for Visit * Reason Comments Genetic Evaluation * Consultation (Routine) - Closed Specialty Diagnoses / Procedures Referred By Nir potts Referred To Contact Hematology and Oncology Diagnoses Malignant neoplasm of upper-outer quadrant of left breast in female, estrogen receptor positive Family history of breast cancer in first degree relative Roosevelt Dueñas MD [facility] DR HEMATOLOGY/[place] [address] [facility] Hem Onc Office [address] [place] [phone] Referral ID Status Reason Start Date Expiration Date V isits Requested Visits Authorized [id number] Closed Consult, Test & Treat 01/09/2020 01/08/2021 1 1 Encounter Details Date Type Department Care Team (Latest Contact Info) Description 03/19/2020 11:00 AM EST TH Visit (TeleHealth) Hematology [place] [address] Steph Swartz, [facility] HEMATOLOGY/[place] [address] Malignant neoplasm of upper-outer quadrant of left breast in female, estrogen receptor positive; Family history of breast cancer in first degree relative Social History Tobacco Use Types Packs/Day Years Used Date Smoking Tobacco: Never Smokeless Tobacco: Never Sex and Gender Information Value Date Recorded Sex Assigned at Not on file Gender Identity Not on file Sexual Orientation Not on file documented as of this encounter Progress Notes * Steph Swartz LGC - 03/19/2020 11:00 AM EST Linda Serrano was seen by AROLDO Lamar in consultation at the request of Roosevelt Dueñas to advise regarding possible heritable predisposition to cancer. I spent 28 minutes of this telehealth face to face encounter with the patient gathering medical andfamily history and discussing the likelihood of a genetic predisposition to cancer and the option of genetic testing. Reason for referral/Chief complaint Personal history of bilateral breast cancer and family history of breast cancer. Medical history Cancer hx and treatment: ER+ right ILC diagnosed at age 55 treated with mastectomy and chemotherapyfollowed by tamoxifen and letrazole. Diagnosed with left ER+ IDC at 74 treated with mastectomy. AI is planned. Chemo and radiation not indicated. Is also being worked up for a possible pancreatic tumor. A whipple procedure is scheduled for 03/23/2020. It is not yet known if this represents a pancreatic cancer. Age at 1st menses: ~ 14 Age at 1st child: has 3 adopted sons Menopause status: menopause induced during chemotherapy in 2000 Oral contraceptive use: used for 5 years Hormone replacement therapy use: none Cancer screening: Had a colonoscopy in 2013. Annual skin exam Family History of cancer Problem Relation Age of Onset ??? Breast Cancer Sister 46 CHEK2 mutation Maternal ethnic background is Scandinavian. Paternal ethnic background is Swedish, Sen[place]alese. Genetic risk assessment Linda's sister had genetic testing in 2017 with a 17 gene panel (ZAIDA, BARD1, BRCA1, BRCA2, BRIP1, CDH1, CHEK2, MRE11A, MUTYH, NBN, NF1, PALB2, PTEN, RAD50, RAD51C, RAD51D and TP53. 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 This was reported as a moderate risk mutation resulting in a 1.5 fold increased risk for breast cancer and up to a 2 fold increased risk for colon cancer. Other risks associated with CHEK 2 mutations are for prostate cancer in men and thyroid cancer although the exact risks are not known. Based on this finding in Linda's sister, Lindais at 50% risk for also having inherited this mutation which may explain her history of breast cancer so she should be tested for this. CHEK2 mutations are not associated with pancreatic cancer. Given that Linda is currently being worked up for pancreatic cancer it is reasonable to offer additional panel testing. Panel genetic testing for an inherited predisposition to cancer, including breast, pancreatic and other cancers was discussed. The risks, benefits and limitations of panel genetic testing were reviewed, specifically a high rate of identifying a variant of uncertain significance, lack of knowledge of cancer risk for newly identified, moderate risk genes included in the panel and lack of effective screening, as well as cancer risk for other cancers not observed in the family. Linda opted for testing with [facility] Common Hereditary Cancers Panel, a next generation sequencing panel that simultaneously analyzes 47 genes, including CHEK2, BRCA1 and BRCA2, that contribute to increased risk for cancer. Linda was consented. Her blood sample was drawn and sent to [facility]. Testing will take up to 3 weeks. Linda will be contacted via telephone once her test results become available. If positive, we will offer a follow-up appointment. At that time, we will discuss with Linda the implications that this test result may have for her, as well as her family members and answer any questions she may have. documented in this encounter Plan of Treatment Upcoming Encounters Date Type Department Care Team (Late st Contact Info) Description 11/02/2023 1:00 PM EDT Office Visit Hematology/Oncology at [address] [phone] Mary Nails APRN [address] [place] [address] [place] [address] 11/02/2023 1:30 PM EDT Infusion Hematology Oncology at [address] [phone] Scheduled Referrals Name Type Priority Associated Diagnoses Orde r Schedule Referral to Familial Cancer Outpatient Referral Routine Malignant neoplasm of upper-outer quadrant of left breast in female, estrogen receptor positive Family history of breast cancer in first degree relative Ordered: 01/09/2020 documented as of this encounter Visit Diagnoses Diagnosis Malignant neoplasm of upper-outer quadrant of left breast in female, estrogen receptor positive Family history of breast cancer in first degree relative Family history of malignant neoplasm of breast documented in this encounter Care Teams Rehanger Relationship Specialty Start Date End Date Zeny James APRN [address] [place] [address] PCP - General Family Medicine 09/23/19 documented as of this encounter
--- OUTSIDE RECORDS SUMMARY | 2023-11-02 02:34 | XMS_ITS | Encounter Summary ---
Author Organization [facility] [place] [address] Care Team Providers Care Automatic Developer Name Role Phone JairoZayda bentleyZeny JESUS ALBERTO Primary Care Provider Encounter Details Date Type Department Care Team (Late st Contact Info) Description 12/27/2019 Telephone Hematology [place] [phone] Inez Corona Social History Tobacco Use Types Packs/Day Years Used Date Smoking Tobacco: Never Smokeless Tobacco: Never Sex and Gender Information Value Date Recorded Sex Assigned at Not on file Gender Identity Not on file Sexual Orientation Not on file documented as of this encounter Miscellaneous Notes * Telephone Encounter - Inez Corona - 12/27/2019 4:08 PM EDT Request for Oncotype testing sent to [facility]. No insurance auth needed as patient has Medicare A&B primary. documented in this encounter Plan of Treatment Upcoming Encounters Date Type Department Care Team (Late st Contact Info) Description 11/02/2023 1:00 PM EDT Office Visit Hematology/Oncology at [address] [phone] Mary Nails APRN [address] [place] [address] MEDICAL ONCOLOGY [place], [place] [address] 11/02/2023 1:30 PM EDT Infusion Hematology Oncology at [address] [phone] documented as of this encounter Visit Diagnoses Not on filedocumented in this encounter Care Teams Automatic Developer Relationship Specialty Start Date End Date Zeny James APRN [address] [place] [address] PCP - General Family Medicine 09/23/19 documented as of this encounter
--- OUTSIDE RECORDS SUMMARY | 2023-11-02 02:34 | XMS_ITS | Encounter Summary ---
Author Organization [facility] Address [facility] [place] [address] Care Team Providers Care Batch Roller Operator Name Role Phone Zeny James JESUS ALBERTO Primary Care Provider [phone] Reason for Referral * Consultation (Routine) - Closed Specialty Diagnoses / Procedures Referred By Nir potts Referred To Contact Hematology and Oncology Diagnoses Malignant neoplasm of upper-outer quadrant of left breast in female, estrogen receptor positive Family history of breast cancer in first degree relative Roosevelt Dueñas MD [facility] HEMATOLOGY/[place] [address] [facility] Hem Onc Office [address] [place] [phone] Referral ID Status Reason Start Date Expiration Date V isits Requested Visits Authorized [id number] Closed Consult, Test & Treat 01/09/2020 01/08/2021 1 1 * Diagnostic Test (Routine) - Closed Specialty Diagnoses / Procedures Referred By Nir potts Referred To Contact Radiology Diagnoses Malignant neoplasm of upper-outer quadrant of left breast in female, estrogen receptor positive 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 Rad Xray [address] [place] [address] [place] [address] Referral ID Status Reason Start Date Expiration Date V isits Requested Visits Authorized [id number] Closed Specialty Service Requested 01/09/2020 07/08/2021 1 1 Reason for Visit * Reason Comments Follow-up * Consultation (Routine) - Specialty Diagnoses / Procedures Referred By Nir potts Referred To Contact Hematology and Oncology Diagnoses Breast cancer S/P L MAST SURG 12/19 C/W SUSAN (DC) Procedures [facility] Susan Rivera MD [facility] [place] [address] Roosevelt Dueñas MD [facility] HEMATOLOGY/[place] [address] Referral ID Status Reason Start Date Expiration Date V isits Requested Visits Authorized [id number] 01/09/2020 01/08/2021 1 1 Encounter Details Date Type Department Care Team (Late st Contact Info) Description 01/09/2020 9:00 AM EDT Office Visit Hematology [place] [phone] Roosevelt Dueñas MD [facility] HEMATOLOGY/[place] [address] Lillie Oscar, RN Malignant neoplasm of upper-outer quadrant of left breast in female, estrogen receptor positive; Osteopenia, unspecified location; 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; Family history of breast cancer in first [...] Sign Reading Time Taken Comments Blood Pressure 141/74 01/09/2020 8:44 AM EDT Pulse 68 01/09/2020 8:44 AM EDT Temperature 36.3 ??C (97.3 ??F) 01/09/2020 8:44 AM ED T Respiratory Rate 17 01/09/2020 8:44 AM EDT Oxygen Saturation 100% 01/09/2020 8:44 AM EDT Inhaled Oxygen Concentration - - Weight 54.7 kg (120 lb 9.6 oz) 01/09/2020 8:44 A M EDT Height 156.6 cm (5' 1.65) 01/09/2020 8:44 AM ED T Body Mass Index 22.31 01/09/2020 8:44 AM EDT documented in this encounter Progress Notes * Roosevelt Dueñas MD - 01/09/2020 9:00 AM EDT Initial Medical Oncology Visit New Breast Cancer Ms. Serrano is a 74 year old female, here today in consultation at the request of Dr. Rivera to review her status, and to discuss her options for further therapy. HPI: 12/05/19 Needle biopsies??Left breast: ? Diagnosis: ??- Invasive lobular carcinoma. ?Intermediate grade, modified SBR score = 6 ? - Lobular carcinoma in-situ and atypical lobular ?hyperplasia ER immunoreactivity: Positive (>90% cancer cells with immunostaining) Stain intensity: Strong KY immunoreactivity: Negative (<1% cancer cells with immunostaining) [...] Lymph Nodes Examined: ??2 ? Number of Ava Nodes Examined: ??2 Pathologic Stage Classification (pTNM, AJCC 8th Edition) ?pT1c pN0 OncotypeDx Recurrence Score = 23, which as per Tailor[employer] trial, does not warrant adjuvant chemo. PMH: Past Medical History: Diagnosis Date ??? Basal cell carcinoma 2009 [facility]-back ??? Breast cancer Prior breast cancer was R breast invasive lobular ca, s/p mastectomy, in 2000 (age 55). Two of 9 nodes were positive. ER-pos/KY-neg. Received AC/Taxol. Then took tamoxifen for 5 yrs, then transitioned to letrazole, which she did not tolerate d/t aches and pains in joints. Also tried exemestane but had same side effects after 4 months. > Osteopenia DEXA 2014: T-score: -1.9, CATARINO: Femoral neck. Took fosamax in distant past (?prior osteoporosis). > IPMN. Presented this past summer with weight loss and epigastric pain. Better on pancreatic enzymes. Being managed by Dr. Jennifer Carolina. 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 Lives alone ( 7 yr ago). Family History Problem Relation Age of Onset ??? Breast Cancer Sister 50 early 50's. A&W in 2019 ??? Ovarian Cancer Neg Hx Sister had some genetic testing in early . Patient indicates her sister had a CHEK2 mutation. ROS: Reports ~10 pounds of wt loss earlier this year. Having alternating loose and hard stool. No new problems with MATOS, diplopia, cough, SOB, pain, palpitations, fevers, bleeding, nausea/emesis, weakness,imbalance, falls. ROS otherwise neg. Exam: Patient Vitals for the past 24 hrs: Temp Pulse Resp BP SpO2 01/09/20 0844 36.3 ??C (97.3 ??F) 68 17 141/74 100 % PERRL, EOMi, sclera nonicteric No MATTHEW No spine tenderness Chest: clear to A and P L CW surgical site without e/o infection CV: RRR, no murmurs Abd: NT, no HSM, +BS Ext: no c/c/e Neuro: grossly nonfocal. Neg Romberg. Labs: Recent Results (from the past 24 hour(s)) Comprehensive metabolic panel (non-fasting) Result Value Ref Range Glucose Lvl 102 65 - 199 mg/dL BUN 12 8 - 18 mg/dL Creatinine 0.72 0.70 - 1.20 mg/dL Sodium 133 (L) 135 - 145 mmol/L Potassium 4.3 3.5 - 5.0 mmol/L Chloride 95 (L) 98 - 107 mmol/L CO2 27 22 - 31 mmol/L Anion Gap 11 5 - 15 mmol/L Calcium 10.9 (H) 8.5 - 10.5 mg/dL Total Protein 7.2 6.1 - 8.0 gm/dL Albumin 4.7 3.2 - 5.2 gm/dL AST 32 (H) 0 - 30 unit/L ALT 31 (H) 0 - 30 unit/L Alk Phos 113 (H) 35 - 105 unit/L Total Bilirubin 0.5 0.2 - 1.3 mg/dL eGFR 83 >=60 mL/min/1.73 m?? eGFR 96 >=60 mL/min/1.73 m?? Ref. Range 12/18/2019 WBC Latest Ref Range: 4.0 - 9.5 x10(3)/mcL 9.7 (H) RBC Latest Ref Range: 4.00 - 5.21 x10(6)/mcL 4.71 Hemoglobin Latest Ref Range: 11.7 - 15.5 gm/dL 14.3 Hematocrit Latest Ref Range: 35.7 - 45.8 % 43.7 MCV Latest Ref Range: 82.6 - 94.4 fL 92.8 MCH Latest Ref Range: 27.1 - 32.0 pg 30.4 MCHC Latest Ref Range: 31.7 - 35.0 gm/dL 32.7 RDWSD Latest Ref Range: 37.0 - 46.0 fL 44.0 RDWCV Latest Ref Range: 11.5 - 14.1 % 12.8 Platelets Latest Ref Range: 145 - 357 x10(3)/mcL 290 MPV Latest Ref Range: 7.6 - 12.9 fL 9.9 nRBC % Auto Latest Units: % 0.0 nRBC Abs Auto Latest Ref Range: 0.000 - 0.000 x10(3)/mcL 0.000 Neutr Abs (ANC) Latest Ref Range: 1.70 - 6.10 x10(3)/mcL 7.01 (H) Neutrophils % Latest Units: % 72.2 Immature Gran % Latest Units: % 0.30 Lymphocytes % Latest Units: % 14.1 Monocytes % Latest Units: % 9.2 Eosinophils % Latest Units: % 3.4 Basophils % Latest Units: % 0.8 Nory Gran Abs Latest Ref Range: 0.00 - 0.04 x10(3)/mcL 0.03 Lymphocytes Abs Latest Ref Range: 0.9 - 3.2 x10(3)/mcL 1.4 Monocyte Abs Latest Ref Range: 0.3 - 0.9 x10(3)/mcL 0.9 Eosinophils Abs Latest Ref Range: 0.0 - 0.4 x10(3)/mcL 0.3 Basophils Abs Latest Ref Range: 0.0 - 0.1 x10(3)/mcL 0.1 I reviewed images from the Dec 04 PET/CT, which was without e/o metastatic disease. Assessment/Rec: 74 with a 2nd contralateral breast cancer in her left breast, the first at age 55. She is s/p left mastectomy with path showing an intermediate-grade, 15 mm tumor. Tumor cells were positive for ER, negative for KY. HER2 without amplification. There was no angiolymphatic invasion and 2 sentinel nodes were negative. pT1c pN0 OncotypeDx Recurrence Score = 23, which as per T[employer]orRx trial does not warrant adjuvant chemo. 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 Prior R breast invasive lobular ca in 2000 at age 55. Two of 9 nodes were positive. ER-pos/KY-neg. Received AC/Taxol. Then took tamoxifen for 5 [...] get an updated DEXA scan soon. She will start anastrazole mid Jan. I advised her to consider genetic counseling/testing, given she now has a 2nd breast cancer. Since she doesn't do on-line forms, I gave her paper copies of the FCP forms to fill out and return. Askedher to obtain printed results of her sister's prior genetic test. Referral placed. All questions. Assuming no issues with DEXA, and she tolerates the anastrazole, we'll see her back in 6 months. * Lillie Oscar RN - 01/09/2020 9:00 AM EDT Comprehensive Breast Program (CBP) Nurse Navigator Note Linda Serrano is a 74 y.o. female with left breast cancer s/p mastectomy and SLN excision on 12/19with Dr. Rivera. I met with the patient, who comes alone today, before her medical oncology consultation. Maricruz states she is doing well overall. Has a small red area near her incision and will talk with Dr. Rivera at her follow up apt. today. She plans for whipple procedure with Dr. Jennifer Carolina, possibly in January for IPMN. Voiced no needs or concerns related to breast cancer at this time. She has our contact information. documented in this encounter Plan of Treatment Upcoming Encounters Date Type Department Care Team (Late st Contact Info) Description 11/02/2023 1:00 PM EDT Office Visit Hematology/Oncology at [address] [phone] Mary Nails APRN [address] [place] [address] DR MEDICAL ONCOLOGY [place], [place] [id number] 11/02/2023 1:30 PM EDT Infusion Hematology Oncology at [address] [phone] Scheduled Referrals Name Type Priority Associated Diagnoses Orde r Schedule Referral to Familial Cancer Outpatient Referral Routine Malignant neoplasm of upper-outer quadrant of left breast in female, estrogen receptor positive Family history of breast cancer in first degree relative Ordered: 01/09/2020 documented as of this encounter Results * DXA Central Spine, [...] BMD measurements and plots are available in Track under the imaging tab. Paper copies will be sent to providers without [employer] PF access. If you have received this report without the data sheet and do not have access to Track, please contact Radiology Anesthesia Tech at [phone] Monday thru Monday 8am-4pm. Thank you for letting us participate in the care of this patient. For questions regarding this report, please contact the number below. ? Electronically signed by: Maria Esther Stallworth MD, [facility] ([phone]), at 01/28/2020 1:15 PM Narrative 01/28/2020 1:15 [...] to represent a statistically significant change. At [facility], least significant change for bone mineral density measurements at the spine region of interest: 0.031 g/cm2 Total hip: Compared to the previous, 0.018 ??g/cm2 (2.4 %) decrease. This change is so small that it is unlikely to represent a statistically significant change. Compared to the baseline, 0.045 g/cm2 (5.7 %) decrease. At [facility], least significant change for bone mineral [...] to represent a statistically significant change. At [facility], least significant change for bonemineral density measurements at the spine region of interest: 0.031 g/cm2 Total hip: Compared to the previous, 0.018 g/cm2 (2.4 %) decrease. This change is sosmall that it is unlikely to represent a statistically significant change. Compared to the baseline, 0.045 g/cm2 (5.7 %) decrease. At [facility], least significant change for bonemineral density [...] BMD measurements and plots are available in E-under the imaging tab. Paper copies will be sent to providers without [employer] access.If you have received this report without the data sheet and do not haveaccess to [employer], please contact Radiology Anesthesia Tech at [phone] Monday thruFriday 8am-4pm. Thank you for letting us participate in the care of this patient. Forquestions regarding this report, please contact the number below. Electronically signed by: Maria Esther Stallworth MD, Radiology [place]([phone]), at 01/28/2020 1:15 PM Roosevelt Dueñas MD IMG DEXA ORDERABLES * (ABNORMAL) Comprehensive metabolic panel (non-fasting) (01/09/2020 9:45 AM EDT) [facility] Glucose Lvl 102 65 - 199 mg/dL [facility] Comment:Diabetes: >=200 mg/d L plus symptoms BUN 12 8 - 18 mg/dL [facility] Creatinine 0.72 0.70 - 1.20 mg/dL [facility] Sodium 133(L) 135 - 145 mmol/L [facility] Potassium 4.3 3.5 - 5.0 mmol/L [facility] Comment: Please note: ??Patients with WBC >100,000 may have falsely elevated Potassium levels. ??For accurate Potassium quantification in these patients send serum separator tube (gold top) for subsequent determinations. ??Contact the Clinical Chemistry Laboratory if there are any questions. Chloride 95(L) 98 - 107 mmol/L [facility] CO2 27 22 - 31 mmol/L [facility] Anion Gap 11 5 - 15 mmol/L [facility] Calcium 10.9(H) 8.5 - 10.5 mg/dL [facility] Total Protein 7.2 6.1 - 8.0 gm/dL [facility] Albumin 4.7 3.2 - 5.2 gm/dL [facility] AST 32(H) 0 - 30 unit/L [facility] ALT 31(H) 0 - 30 unit/L [facility] Alk Phos 113(H) 35 - 105 unit/L [facility] Total Bilirubin 0.5 0.2 - 1.3 mg/dL [facility] Estimated GFR 83 >=60 mL/min/1. 73 m?? [facility] Comment: The eGFR was calculated using the CKD-EPI equation. As with all creatinine based estimates of kidney function, eGFR values calculated with the CKD-EPI equation are not accurate in patients with acute kidney failure, extremes of body mass or the acutely ill. http://[employer].Usarium/DHMCnkf eGFR 96 >=60 mL/min/1. 73 m?? [facility] Comment: The eGFR was calculated using the CKD-EPI equation. As with all creatinine based estimates of kidney function, eGFR values calculated with the CKD-EPI equation are not accurate in patients with acute kidney failure, extremes of body mass or the acutely ill. 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
--- OUTSIDE RECORDS SUMMARY | 2023-11-02 02:34 | XMS_ITS | Encounter Summary ---
Author Organization [facility] [place] [address] Care Team Providers Care Ore Puncher Name Role Phone Zeny James JESUS ALBERTO Primary Care Provider Encounter Details Date Type Department Care Team (Late st Contact Info) Description 12/10/2019 [place] [address] Larry Hernandez MD [facility] [place] [address] Social History Tobacco Use Types Packs/Day Years [...] 1:00 PM EDT Office Visit Hematology/Oncology at [address] [phone] Mary Nails CELERY STRIPPER [address] [place] [address] [place] [address] 11/02/2023 1:30 PM EDT Infusion Hematology Oncology at [address] [phone] documented as of this encounter Visit Diagnoses Not on filedocumented in this encounter Care Teams Ore Puncher Relationship Specialty Start Date End Date Zeny James APRN [address] [facility] 1 [place] [address] PCP - General Family Medicine 09/23/19 documented as of this encounter
--- OUTSIDE RECORDS SUMMARY | 2023-11-02 02:34 | XMS_ITS | Encounter Summary ---
[place] [address] Care Team Providers Care Commissary Assistant Name Role Phone VasuZayda santoslaide JESUS ALBERTO Primary Care Provider Encounter Details Date Type Department Care Team (Late Contact Info) Description 03/21/2020 [place] [phone] Anabela Montalvo CCMA Social History Tobacco Use Types Packs/Day Years Used Date Smoking Tobacco: Never Smokeless Tobacco: Never Sex and Gender Information Value Date Recorded Sex Assigned at Not on file Gender Identity Not on file Sexual Orientation Not on file documented as of this encounter Miscellaneous Notes * Telephone Encounter - Anabela Montalvo CCMA - 03/21/2020 12:27 PM EST Telephone call placed to let the patient know with the covid19 test done. Test results is negative.Patient no further questions asked. documented in this encounter Plan of Treatment Upcoming Encounters Date Type Department Care Team (Late Contact Info) Description 11/02/2023 1:00 PM EDT Office Visit Hematology/Oncology at [address] [phone] Mary Nails APRN [address] [place] [address] MEDICAL ONCOLOGY [place], [place] [id number] 11/02/2023 1:30 PM EDT Infusion Hematology Oncology at [address] [phone] documented as of this encounter Visit Diagnoses Not on filedocumented in this encounter Care Teams Commissary Assistant Relationship Specialty Start Date End Date Zeny James APRN [address] [place] [address] [address] [place], [place] [address] PCP - General Family Medicine 09/23/19 documented as of this encounter
--- OUTSIDE RECORDS SUMMARY | 2023-11-02 02:34 | XMS_ITS | Encounter Summary ---
Author Organization [facility] [place] [address] Care Team Providers Care Tangled Yarn Spool Straightener Name Role Phone Zeny James APRN Primary Care Provider [phone] Encounter Details Date Type Department Care Team (Late st Contact Info) Description 12/20/2019 12:10 PM EDT - 12/20/2019 2:30 PM EDT Surgery [place] [address] Kevin Rivera MD [facility] [place] [address] MASTECTOMY, SIMPLE, COMPLETE (WRVU 15) Social History Tobacco Use Types Packs/Day Years [...] closest emergency room or call the hospital concrete conveyor operator at [phone] and ask for physician project control analyst covering for your physician. Questions or problems after 5pm or on a weekend: Call the [facility] concrete conveyor operator at and ask for the physician project control analyst covering for your doctor. At 11;15am you [...] arm until the drain is removed Call [phone] with any questions steristrips will fall off [...] daily and record output Call clinic at [phone] for drain removal when output less than [...] by mouth every other day. 10/25/2019 04/11/2020 ik[address]cd-lqqnjwxq-nkknsf e DR ([place]) 24,000-76,000 -120,000 unit Capsule, [...] discuss newly diagnosed left breast cancer (ER+, IN-, HER2-) diagnosed after abnormal screening mammogram. Of note, she has a history of MRM on the right in 2000. ?? Maricruz presented for screening mammogram in November,. This revealed a subtle focal asymmetry of the outer left breast, at approximately 3:00, 7 to 8 cm from the nipple measuring 1 cm. Call back imaging confirmed a suspicious finding and pathology revealed ER+, IN- , HER2- IDC. ?? 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 ??Her 7 years ago and she currently lives alone. ?She has adopted 3 sons who live in [place], [place] in [place] and 6 stepchildren. ??She drinks rarely. No [...] female with radiographic stage I IDC ER+, IN-, HER2-- IDC of the left breast.No symptomatic, [...] Rivera MD - 12/20/2019 1:35 PM EDT [facility] Patient Name: Linda Serrano : [id number] MR#: [id number] Case Date: 12/20/2019 Surgeon: Surgeon(s) and Role: [...] was irrigated, hemostased, and closed over a 19-Yemeni Darius drain. Sterile dressings were applied. Infection Bundle used? N/A Attestation: Case Date: 12/20/2019 I performed this procedure without the involvement of a resident. KEVIN RIVERA MD 12/20/2019 documented in this encounter Plan of Treatment Upcoming Encounters Date Type Department Care Team (Late st Contact Info) Description 11/02/2023 1:00 PM EDT Office Visit Hematology/Oncology at [address] [phone] Mary Nails APRN [address] [place] [address] [place] [address] 11/02/2023 1:30 PM EDT Infusion Hematology Oncology at [address] [phone] documented as of this encounter Procedures Procedure [...] 12/20/2019 11:45 AM EDT BREAST CANCER Intraop Charleston Lymph Id W/Dye Injection (63690) Yes 12/20/2019 11:45 AM EDT BREAST CANCER Bx/Remv, Lymph Node, Deep Axill ([id number]) Yes 12/20/2019 11:45 AM EDT BREAST CANCER Mastectomy, Simple, Complete ([id number]) Yes 12/20/2019 11:45 AM EDT BREAST CANCER documented in this encounter Results * SCAN DOC: ORDS - PROVIDER CARE (12/24/2019 12:00 AM EDT) Narrative 12/24/2019 12:00 AM EDT Ordered by an unspecified provider. Scanning Provider MEDIA MGR SCAN EXT O RDR/RSLT * Specimen to Pathology (12/20/2019 1:12 PM EDT) AP Specimen 12/20/2019 1:12 PM EDT 12/20/2019 1:12 PM EDT Narrative [facility] - 12/20/2019 1:12 PM EDT Specimen requisition ordered. ??Separate Pathology report to follow Kevin Rivera MD PATHOLOGY/CYTOLOGY ORDERABLES [facility] [place] [address] * Specimen to Pathology (12/20/2019 12:45 PM EDT) AP Specimen 12/20/2019 12:4 5 PM EDT 12/20/2019 12:45 PM EDT Narrative [facility] - 12/20/2019 12:45 PM EDT Specimen requisition ordered. ??Separate Pathology report to follow Kevin Rivera MD PATHOLOGY/CYTOLOGY ORDERABLES [facility] [place] [address] * Specimen to Pathology (12/20/2019 12:35 PM EDT) AP Specimen 12/20/2019 12:3 5 PM EDT 12/20/2019 12:35 PM EDT Narrative [facility] - 12/20/2019 12:35 PM EDT Specimen requisition ordered. ??Separate Pathology report to follow Kevin Rivera MD PATHOLOGY/CYTOLOGY ORDERABLES Performing Organization Address [facility] Co de Phone Number [facility] [place] [address] * Surgical Pathology Report (12/20/2019 12:33 PM EDT) Surgical Pathology Report [id number] ? Location: [facility] The signing pathologist has (i) examined the relevant preparation(s) for the specimen(s) and (ii) rendered or confirmed the diagnosis(es). . ? Addendum ADDENDUM DISCUSSION SPECIAL TEST PERFORMED: Test: ??Oncotype DX [facility] [place] Case: ??[id number], block A3 Performing Lab: ??[facility] Performing Lab Case: ??[id number] Reported by: ??Denzel Ellis MD Date reported: ??01/03/2020 For the full text of the [facility] report please refer to [facility] Pathology in the electronic health record (eDH). Electronically signed by: ??Gila Mcneil DO Verified: ??01/06/2020 ?Pathologist Performed at: ??-[facility] Dept. [place]ology, [place], [place] ?Surgical Pathology DIAGNOSIS A - Left [...] Mcneil DO Verified: ??12/27/2019 ?Pathologist Performed at: ??-[facility] [place] Dept. of [place]ology, [place], [place] SYNOPTIC Specimen Parts: ??A-C Specimen ? [...] of Lymph Nodes Examined: ??2 ?Number of Charleston Nodes Examined: ??2 Pathologic Stage Classification (pTNM, [...] superficial surface at periphery inked blue. Sections/Processing: Needle Grader sections in 15 cassettes as follows: ?A1: ??Nipple ?A2: ??Base of nipple ?A3-A4: ??Lesion including deep margin, inked black ?A5-A6: ??Additional sections of lesion ?A7-A8: ??Needle Grader upper inner quadrant ?A9-A10: ??Needle Grader lower inner quadrant ?A11: ??Needle Grader central ?A12-A13: ??Needle Grader upper outer quadrant ?A14-A15: ??Needle Grader lower outer quadrant Ischemic Time: 1.2 hours [...] submitted in 4 cassettes labeled C1-C4. ??PPS [facility] 12/20/2019 12:3 3 PM EDT Kevin Rivera MD PATHOLOGY/CYTOLOGY ORDERABLES [facility] [place] [address] documented in this encounter Visit Diagnoses Not [...] Routine documented in this encounter Care Teams Tangled Yarn Spool Straightener Relationship Specialty Start Date End Date Zeny James APRN [address] [place] [address] PCP - General Family Medicine 09/23/19 documented as of this encounter
--- OUTSIDE RECORDS SUMMARY | 2023-11-02 02:34 | XMS_ITS | Encounter Summary ---
Author Organization [facility] [place] [address] Care Team Providers Care Analytical Tech Name Role Phone VasuZayda santoslaide JESUS ALBERTO Primary Care Provider Reason for Visit * Auth/Cert Specialty Diagnoses / Procedures Referred By Nir t Referred To Contact Diagnoses IPMN Procedures PRO PART REMV PANC, PROX+PART DUOD+ANAST @PANCREATECTOMY, WHIPPLE TYPE WITH PANCREATOJEJUNOSTOMY (WRVU 52.79) MODIFIER ROBOT,DAVINCI XI Referral ID Status Reason Start Date Expiration Date Visits Re quested Visits Authorized [id number] 1 1 Encounter Details Date Type Department Care Team (Late st Contact Info) Description 03/20/2020 10:00 [place] [address] COVID-19 ruled out Social History Tobacco Use Types Packs/Day Years [...] PM EDT Office Visit Hematology/Oncology at [address] [phone] Mary Nails APRN [address] [place] [address] MEDICAL ONCOLOGY [place], [place] [address] 11/02/2023 1:30 PM EDT Infusion Hematology Oncology at [address] [phone] documented as of this encounter Procedures Procedure Name Priority Date/Time Associated Diagnosis Comments COVID-19 PCR Routine 03/20/2020 10:57 AM EST COVID-19 ruled out documented in this encounter Results * COVID-19 PCR (03/20/2020 10:57 AM EST) SARS-CoV-2 RNA Not Detected Not Detected [facility] Comment: This result should be interpreted in [...] diagnosis of COVID-19 is performed using the [employer] m SARS-CoV-2 Assay as authorized by the FDA Emergency Use Authorization (EUA). This EUA assay is intended for In-vitro Diagnostic (IVD) use with respiratory specimens such as nasopharyngeal swabs collected from individuals during the acute phase of infection. This assay is performed based on the instructions for use provided by [employer] and additional guidance provided by CDC and FDA. Testing is performed in the [facility] Laboratory within the Department of Pathology and Laboratory Medicine at [facility], certified under the Clinical Laboratory Improvement Amendments of 1988 (CLIA), 42 U.S.C. 263a, to perform high complexity tests. Assay performance has been verified according to clinical laboratory regulatory requirements for use with specimens collected from individuals suspected of COVID-19. Test results are provided above. A result of ? Not Detected? indicates that the viral RNA target is [...] be considered in the context of a patient? s recent exposures and the presence of clinical signs and symptoms consistent with COVID-19. A result of ? Detected? indicates that RNA from SARS-CoV-2 was detected and the patient is infected. As required or requested by public health authorities, positive specimens may be sent for additional testing. Positive and negative predictive values for this test are highly dependent on disease prevalence. A result of ? Invalid? indicates that neither the viral RNA targets nor the internal control target was detected. An invalid result suggests the presence of inhibitors. Recollection and re-testing is recommended in the case of an invalid result. CDC COVID-19 criteria for testing on human specimens and clinical management guidance information are available at the CDC Coronavirus Disease 2019 (COVID-19) webpage under ? Information for Healthcare Professionals? (https://www.cdc.gov/coronavirus/2019-ncov/hcp/index.html) Additional information about this and other EUA tests can be found in provider and patient fact sheets at the following FDA website: https://www.fda.gov/medical-devices/gjjckeyvqzg-quoqbdb-7898-metpd-05-rzvnzhvqh- use-a tfthbmidyipls-rwvxuzm-vojbvik/llvic-jtvfzpcnrwb-gwvs SARS-Cov-2 RNA Source SEAM TAPER MACHINE Swab [facility] Nasopharyngeal swab (specimen) 03/20/2020 10:57 AM EST 03/20/2020 10:57 AM EST Comment:Symptoms->Asymptomat ic Narrative Resulting Agency Comment Spec In Lab Regino Carolina MD MICROBIOLOGY - GEN ERAL ORDERABLES [facility] [place] [address] documented in this encounter Visit Diagnoses Diagnosis COVID-19 ruled out documented in this encounter Care Teams Analytical Tech Relationship Specialty Start Date End Date Erika JESUS ALBERTO Moura [address] [place] [address] PCP - General Family Medicine 09/23/19 documented as of this encounter
--- OUTSIDE RECORDS SUMMARY | 2023-11-02 02:34 | XMS_ITS | Encounter Summary ---
Author Organization [facility] [place] [address] Care Team Providers Care Senior Oracle Applications Developer Name Role Phone VasuZeny santos JESUS ALBERTO Primary Care Provider Reason for Visit * Reason Onset Date Comments Medication Refill Medication Refill 01/13/2020 Encounter Details Date Type Department Care Team (Late st Contact Info) Description 01/13/2020 Refill [place] [address] Regino Carolina MD [facility] [place] [address] Social History Tobacco Use Types Packs/Day Years [...] PM EDT Office Visit Hematology/Oncology at [address] [phone] Mary Nails LONG TERM CARE ADMINISTRATOR [address] [place] [address] DR MEDICAL ONCOLOGY [place], [place] [id number] 11/02/2023 1:30 PM EDT Infusion Hematology Oncology at [address] [phone] documented as of this encounter Visit Diagnoses Not on filedocumented in this encounter Care Teams Senior Oracle Applications Developer Relationship Specialty Start Date End Date Jairosheree ZenyJESUS ALBERTO noriega [address] [place] [address] PCP - General Family Medicine 09/23/19 documented as of this encounter
--- OUTSIDE RECORDS SUMMARY | 2023-11-02 02:34 | XMS_ITS | Encounter Summary ---
Author Organization [facility] [place] [address] Care Team Providers Care Manager Transfusion Name Role Phone Zeny James JESUS ALBERTO Primary Care Provider Encounter Details Date Type Department Care Team (Late st Contact Info) Description 01/06/2020 External Results [place] [address] Quinton Moreno MD [facility] [place] [address] Social History Tobacco Use Types Packs/Day Years [...] PM EDT Office Visit Hematology/Oncology at [address] [phone] Mary Nails APRN [address] [place] [address] DR MEDICAL ONCOLOGY [place], [place] [id number] 11/02/2023 1:30 PM EDT Infusion Hematology Oncology at [address] [phone] documented as of this encounter Visit Diagnoses Not on filedocumented in this encounter Care Teams Manager Transfusion Relationship Specialty Start Date End Date Zeny James APRN [address] [facility] [address] [facility] 1 [place] [address] PCP - General Family Medicine 09/23/19 documented as of this encounter
--- OUTSIDE RECORDS SUMMARY | 2023-11-02 02:34 | XMS_ITS | Encounter Summary ---
Author Organization [facility] Address [facility] [place] [address] Care Team Providers Care Pulp Mixer Name Role Phone VasuZeny santos JESUS ALBERTO Primary Care Provider [phone] Encounter Details Date Type Department Care Team (Late st Contact Info) Description 01/06/2020 External [place] [phone] Provider, Scanning Social History Tobacco Use Types Packs/Day Years [...] PM EDT Office Visit Hematology/Oncology at [address] [phone] Mary Nails MENTAL HEALTH CLINICIAN [address] [place] [address] DR [place] [address] 11/02/2023 1:30 PM EDT Infusion Hematology Oncology at [address] [phone] documented as of this encounter Procedures Procedure Name Priority Date/Time Associated Diagnosis Comments SURGICAL PATHOLOGY SCAN Routine 01/06/2020 documented in this encounter Results * Scan Doc: Surgical Pathology (01/06/2020) Historical Provider MD [facility] MGR SCAN EX T ORDR/RSLT documented in this encounter Visit Diagnoses Not on filedocumented in this encounter Care Teams Pulp Mixer Relationship Specialty Start Date End Date Zeny James APRN [address] [place] [address] PCP - General Family Medicine 09/23/19 documented as of this encounter
--- OUTSIDE RECORDS SUMMARY | 2023-11-02 02:34 | XMS_ITS | Encounter Summary ---
Author Organization [facility] [place] [address] Care Team Providers Care Dental Technician Apprentice Name Role Phone Zeny James JESUS ALBERTO Primary Care Provider Encounter Details Date Type Department Care Team (Late Contact Info) Description 12/10/2019 Orders [place] [address] Susan Rivera MD [facility] [place] [place] [address] Malignant neoplasm of left breast in female, [...] PM EDT Office Visit Hematology/Oncology at [address] [phone] Mary Nails GENERAL COUNSELOR [address] [place] [address] DR MEDICAL ONCOLOGY [place], [place] [id number] 11/02/2023 1:30 PM EDT Infusion Hematology Oncology at [address] [phone] documented as of this encounter Visit Diagnoses Diagnosis Malignant neoplasm of left breast in female, estrogen receptor positive, unspecified site of breast documented in this encounter Care Teams Dental Technician Apprentice Relationship Specialty Start Date End Date Erika JESUS ALBERTO Moura [address] [place] [address] PCP - General Family Medicine 09/23/19 documented as of this encounter
--- OUTSIDE RECORDS SUMMARY | 2023-11-02 02:34 | XMS_ITS | Encounter Summary ---
Author Organization [facility] [place] [address] Care Team Providers Care Transformer Mechanic Name Role Phone Zeny James APRN Primary Care Provider Encounter Details Date Type Department Care Team (Late st Contact Info) Description 12/10/2019 Telephone [place] [address] [facility] [place] [address] Social History Tobacco Use Types Packs/Day Years Used Date Smoking Tobacco: Never Smokeless Tobacco: Never Sex and Gender Information Value Date Recorded Sex Assigned at Not on file Gender Identity Not on file Sexual Orientation Not on file documented as of this encounter Miscellaneous Notes * Telephone Encounter - Regino Carolina MD - 12/10/2019 11:00 AM EDT I called and spoke to Maricruz as the radiologist called me because they were trying to schedule her surveillance CT imaging which is a pancreatic protocol CT with IV contrast and in her chart there is mention that she has shortness of breath with IV contrast. Maricruz explained that she has asthma and on the day that she had her CT scan back in 2013 they never gave her her inhaler and she got short of breath during the CAT scan but since then she has had multiple CT scans and most recently the one in September with IV contrast without any difficulty- in essence she does not have any allergy to IV CT contrast. I will document this in the chart and remove this from her allergy list so that in the future she can get IV contrast without difficulty from her electronic health record documentation. Jennifer Carolina MD 12/10/2019 11:04 AM documented in this encounter Plan of Treatment Upcoming Encounters Date Type Department Care Team (Late st Contact Info) Description 11/02/2023 1:00 PM EDT Office Visit Hematology/Oncology at [address] [phone] Mary Nails APRN [address] [place] [address] MEDICAL ONCOLOGY [place], [place] [id number] 11/02/2023 1:30 PM EDT Infusion Hematology Oncology at [address] [phone] documented as of this encounter Visit Diagnoses Not on filedocumented in this encounter Care Teams Transformer Mechanic Relationship Specialty Start Date End Date Zeny James APRN [address] [place] [address] PCP - General Family Medicine 09/23/19 documented as of this encounter
--- OUTSIDE RECORDS SUMMARY | 2023-11-02 02:34 | XMS_ITS | Encounter Summary ---
Author Organization [facility] [place] [address] Care Team Providers Care Music Adapter Name Role Phone Zeny James APRN Primary Care Provider Reason for Referral * Diagnostic Test (Routine) - Closed Specialty Diagnoses / Procedures Referred By Contac t Referred To Contact Radiology Diagnoses Malignant neoplasm of upper-outer quadrant of left breast in female, estrogen receptor positive Procedures NM [place] Node Injection Breast wo Imaging Susan Rivera MD [facility] [place] [address] [place] [address] Referral ID Status Reason Start Date Expiration Date V isits Requested Visits Authorized [id number] Closed Specialty Service Requested 12/18/2019 06/16/2021 1 1 Reason for Visit * Diagnostic Test (Routine) - Closed Specialty Diagnoses / Procedures Referred By Contac t Referred To Contact Radiology Diagnoses Malignant neoplasm of upper-outer quadrant of left breast in female, estrogen receptor positive Procedures NM [place] Node Injection Breast wo Imaging Susan Rivera MD [facility] [place] [address] [place] [address] Referral ID Status Reason Start Date Expiration Date V isits Requested Visits Authorized [id number] Closed Specialty Service Requested 12/18/2019 06/16/2021 1 1 Encounter Details Date Type Department Care Team (Latest Contact Info) Description 12/20/2019 9:54 AM EDT - 12/20/2019 10:49 AM EDT Hospital En[place] [address] Susan Rivera MD [facility] GENERAL SURGERY [place] [id number] Malignant neoplasm of upper-outer quadrant of left breast in female, estrogen receptor positive Discharge Disposition: Home Social History Tobacco Use [...] by mouth every other day. 10/25/2019 04/11/2020 [id number] e DR [place]) 24,000-76,000 -120,000 unit Capsule, Delayed Release(E.C.) [...] PM EDT Office Visit Hematology/Oncology at [address] [phone] Mary Nails, MACHINE SHORTHAND REPORTER [address] [place] [address] DR MEDICAL ONCOLOGY [place], [place] [id number] 11/02/2023 1:30 PM EDT Infusion Hematology Oncology at [address] [phone] documented as of this encounter Procedures Procedure Name Priority Date/Time Associated Diagnosis Comments NM SENTINEL NODE INJECTION BREAST WITHOUT IMAGING Routine 12/20/2019 10:26 AM EDT Malignant neoplasm of upper-outer quadrant of left breast in female, estrogen receptor positive documented in this encounter Results * NM [place] Node Injection Breast wo Imaging (12/20/2019 10:26 AM EDT) Anatomical Region Laterality Modality Nuclear Medicine Impressions 12/20/2019 11:24 AM EDT [place] node injections performed without complication. Thank you for letting us participate in the care of this patient. For questions regarding this report, please contact the number below. ? Narrative 12/20/2019 11:24 AM EDT EXAMINATION: NM SENTINEL NODE INJECTION BREAST WO IMAGING CLINICAL HISTORY: Please inject left breast for lymphatic mapping TECHNIQUE: Technetium-99m filtered sulfur colloid was administered in divided doses totaling 1.3 mCi in the left breast. COMPARISON: None FINDINGS: No imaging was performed. The patient left the department in good condition. Procedure Note Guido Choudhary MD - 12/20/2019 EXAMINATION: NM SENTINEL NODE INJECTION BREAST WO IMAGING CLINICAL HISTORY: Please inject left breast for lymphatic mapping TECHNIQUE: Technetium-99m filtered sulfur colloid was administered individed doses totaling 1.3 mCi in the left breast. COMPARISON: None FINDINGS: No imaging was performed. The patient left the department ingood condition. IMPRESSION [place] node injections performed without complication. Thank you for letting us participate in the care of this patient. Forquestions regarding this report, please contact the number below. Susan Rivera MD IMG NM ORDERABLES documented in this encounter Visit Diagnoses Diagnosis Malignant neoplasm of upper-outer quadrant of left breast in female, estrogen receptor positive documented in this encounter Administered Medications Inactive Administered Medications - up to 3 most recent administrations Medication Order MAR Action Action Date Dose Rate Site technetium (Tc-99m) sulfur colloid injection 1.3 mCi 1.3 mCi, Intradermal, ONCE PRN, 1 dose, Starting on Mon12/20/19 at 1015, Until Mon12/20/19 at 1015, Per Protocol, Routine Given 12/20/2019 10:15 AM EDT 1.3 mCi documented in this encounter Care Teams Music Adapter Relationship Specialty Start Date End Date Zeny James APRN [address] [place] [address] PCP - General Family Medicine 09/23/19 documented as of this encounter
--- OUTSIDE RECORDS SUMMARY | 2023-11-02 02:34 | XMS_ITS | Encounter Summary ---
Author Organization [facility] [place] [address] Care Team Providers Care Porter Used Car Lot Name Role Phone Zeny James APRN Primary Care Provider Encounter Details Date Type Department Care Team (Late st Contact Info) Description 12/24/2019 Telephone [place] [phone] Rosette Jerry, RN Social History Tobacco Use Types Packs/Day Years Used Date Smoking Tobacco: Never Smokeless Tobacco: Never Sex and Gender Information Value Date Recorded Sex Assigned at Not on file Gender Identity Not on file Sexual Orientation Not on file documented as of this encounter Miscellaneous Notes * Telephone Encounter - Arline Verde RN - 12/24/2019 4:55 PM EDT I faxed orders to remove the drain to pt's PCP office as well as the drain site instructions (to give to the pt) and op note. * Telephone Encounter - Arline Verde RN - 12/24/2019 4:41 PM EDT Linda Serrano 12/24/2019 4:41 PM Contact information for the General Surgery Nurses After clinic hours, weekday holidays or on the weekend please call and ask to speak to the Doctor investigation manager ?? You need to keep your drain site covered with bacitracin and a gauze dressing while it is draining. This usually lasts 24-48 hours. Your dressing needs to be changed when it becomes wet. A small amount of drainage is normal. ?? You may develop a seroma (which is a collection of fluid) at or around the drain site. A seroma may be firm or soft and can vary in shapes and size. This is not a medical emergency, but we would like a call if this develops. Call if you develop any of the followin. Fever greater than 100.5 or chills. 2. Continual drainage from your drain site. 3. Redness and or swelling of your drain site or surgical incision (dolores the area with a permanent marker so you can tell if it is worsening). 4. Pain that is not controlled with Tylenol (acetaminophen), Advil (ibuprofen) or prescription painmedication. A copy of these instructions were given to Linda Maggie who was able to verbalized their understanding and how to contact the clinic staff if they have any problems, questions or concerns. * Telephone Encounter - Rosette Wilkes RN - 12/24/2019 12:41 PM EDT Received a message back that Linda she notes has a provider who will remove her drain. She asks that the orders be faxed to the attention of Rhonda Fernandez at [phone]. I have called the office to verify that I have the information correct, I had to leave a voice mail. I have asked the office to call us back so we can get an order to them. I have shared this information with Arline Verde in General Surgery. ~~~~~~~~~~~~~ I received a call from Maricruz who notes her drainage amounts are less than 30 cc in a 24 hour period.She reports her drain has put out 28 cc in the past 24 hours. I have offered to set her up with an appointment to have her drain removed. She is going to pursue having her local care providers removing the drain to prevent her from having to undergo a 3 hour car trip to and from [facility]. I let her know we are happy to fax orders to a provider if she can find someone who will remove herdrain in her local area. [facility] Operative Note Patient Name: Linda Serrano : [id number] MR#: [id number] Case Date: 12/20/2019 Surgeon: Surgeon(s) and Role: * Susan Rivera MD - Primary Preoperative diagnosis: BREAST CANCER - left Postoperative diagnosis: BREAST CANCER - left Procedure(s) (LRB): MASTECTOMY, SIMPLE, COMPLETE (WRVU 15.85) (Left) BIOPSY OR EXCISION OF LYMPH NODE(S), OPEN, DEEP AXILLARY NODE(S) (WRVU 6.43) (Left) INTRAOPERATIVE ID (MAPPING) SENTINEL LYMPH NODE,INCLUDES INJECTION (WRVU 2.5) (Left) MODIFIER SENTINEL NODE EXCISION (Left) ? documented in this encounter Plan of Treatment Upcoming Encounters Date Type Department Care Team (Late st Contact Info) Description 11/02/2023 1:00 PM EDT Office Visit Hematology/Oncology at [address] [phone] Mary Nails APRN [address] [place] [address] MEDICAL ONCOLOGY [place], [place] [phone] 11/02/2023 1:30 PM EDT Infusion Hematology Oncology at [address] [phone] documented as of this encounter Visit Diagnoses Not on filedocumented in this encounter Care Teams Porter Used Car Lot Relationship Specialty Start Date End Date Zeny James APRN [address] [place] [address] [address] [place], [place] [address] PCP - General Family Medicine 09/23/19 documented as of this encounter
--- OUTSIDE RECORDS SUMMARY | 2023-11-02 02:34 | XMS_ITS | Encounter Summary ---
Author Organization [facility] [place] [address] Care Team Providers Care Compliance Project Manager Name Role Phone Zeny James APRN Primary Care Provider [phone] Reason for Referral * Diagnostic Test (Routine) - Closed Specialty Diagnoses / Procedures Referred By Nir potts Referred To Contact Radiology Diagnoses Malignant neoplasm of upper-outer quadrant of left breast in female, estrogen receptor positive Procedures NM [place] Node Injection Breast wo Imaging Susan Rivera MD [facility] [place] [address] [place] [address] Referral ID Status Reason Start Date Expiration Date V isits Requested Visits Authorized [id number] Closed Specialty Service Requested 12/18/2019 06/16/2021 1 1 Encounter Details Date Type Department Care Team (Late st Contact Info) Description 12/18/2019 Orders [place] [address] Susan Rivera MD [facility] DR [address] [place] [address] Malignant neoplasm of upper-outer quadrant of [...] PM EDT Office Visit Hematology/Oncology at [address] [phone] Mary Nails, SUPERVISOR IN CIRCUIT TESTING [address] [place] [address] DR MEDICAL ONCOLOGY [place], [place] [phone] 11/02/2023 1:30 PM EDT Infusion Hematology Oncology at [address] [phone] documented as of this encounter Results * NM [place] Node Injection Breast wo Imaging (12/20/2019 10:26 AM EDT) Anatomical Region Laterality Modality Nuclear Medicine Impressions 12/20/2019 11:24 AM EDT [place] node injections performed without complication. Thank you [...] patient left the department ingood condition. IMPRESSION [place] node injections performed without complication. Thank you for letting us participate in the care of this patient. Forquestions regarding this report, please contact the number below. 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
--- OUTSIDE RECORDS SUMMARY | 2023-11-02 02:34 | XMS_ITS | Encounter Summary ---
Author Organization [facility] Address [facility] [place] [address] Care Team Providers Care Department Of Sociology Chair Name Role Phone Zeny James APRN Primary Care Provider Encounter Details Date Type Department Care Team (Latest Contact Info) Description 01/06/2020 8:51 AM EDT - 01/06/2020 11:59 PM EDT Hospital Encounter [place] [phone] China Ramirez MD [facility] DR DIAGNOST[place] [address] Discharge Disposition: Home Social History Tobacco Use [...] by mouth every other day. 10/25/2019 04/11/2020 [id number] e DR ([place]) 24,000-76,000 -120,000 unit Capsule, [...] 1:00 PM EDT Office Visit Hematology/Oncology at [address] [phone] Mary Nails APRN [address] [place] [address] DR MEDICAL ONCOLOGY [place], [place] [phone] 11/02/2023 1:30 PM EDT Infusion Hematology Oncology at [address] [phone] documented as of this encounter Procedures Procedure Name Priority Date/Time Associated Diagnosis Comments MAMMO BREAST PATHOLOGY MASTECTOMY Routine 01/06/2020 8:51 AM EDT documented in this encounter Results * MAMMO BREAST PATHOLOGY MASTECTOMY (01/06/2020 8:51 AM EDT) Narrative TAI - 01/06/2020 8:51 AM EDT This exam is auto-finalizing. No interpretation was done. [place] MAMMO ORDERABL ES [facility] [place] documented in this encounter Visit Diagnoses Not on filedocumented in this encounter Care Teams Department Of Sociology Chair Relationship Specialty Start Date End Date Adjovu, Zeny, PERSONAL FINANCIAL ADVISOR [address] [place] [address] PCP - General Family Medicine 09/23/19 documented as of this encounter
--- OUTSIDE RECORDS SUMMARY | 2023-11-02 02:35 | XMS_ITS | Encounter Summary ---
Author Organization [facility] [place] [address] Care Team Providers Care Deckhand Engineer Name Role Phone ErikaZaydaZenynataliia GRANDA Primary Care Provider Encounter Details Date Type Department Care Team (Late st Contact Info) Description 10/01/2019 12:05 AM EDT Ancillary Procedure [place] [address] Zeny James APRN [address] [place], [place] [address] Social History Tobacco Use Types Packs/Day Years [...] PM EDT Office Visit Hematology/Oncology at [address] [phone] Mary Nails SATURATOR OPERATOR [address] [place] [address] MEDICAL ONCOLOGY [place], [place] [id number] 11/02/2023 1:30 PM EDT Infusion Hematology Oncology at [address] [phone] documented as of this encounter Procedures Procedure Name Priority Date/Time Associated Diagnosis Comments FILM LIBRARY STORAGE ONLY MR ABDOMEN Routine 10/01/2019 12:05 AM EDT documented in this encounter Results * Film Library- Storage Only MR Abdomen (10/01/2019 12:05 AM EDT) Narrative TAI - 10/02/2019 11:33 AM EDT This exam is auto-finalizing. It's purpose is for storage only. Zeny James APRN IMG FILM LIBRARY OR DERABLES Performing Organization Address City/State/[facility] Co de Phone Number [place], [place] documented in this encounter Visit Diagnoses Not on filedocumented in this encounter Care Teams Deckhand Engineer Relationship Specialty Start Date End Date Zeny James APRN [address] [place] [address] PCP - General Family Medicine 09/23/19 documented as of this encounter
--- OUTSIDE RECORDS SUMMARY | 2023-11-02 02:35 | XMS_ITS | Encounter Summary ---
Author Organization [facility] Address [facility] [place] [address] Care Team Providers Care Digital Strategist Name Role Phone Zeny James APRN Primary Care Provider Encounter Details Date Type Department Care Team (Latest Contact Info) Description 11/15/2019 11:36 AM EDT - 11/15/2019 2:11 PM EDT Hospital Encounter Gastroenterology at [facility] [place] [address] Ralf Urrutia MD [facility] [place] [address] Discharge Disposition: Home Social History Tobacco Use Types Packs/Day Years Used Date Smoking Tobacco: Never Smokeless Tobacco: Never Sex and Gender Information Value Date Recorded Sex Assigned at Not on file Gender Identity Not on file Sexual Orientation Not on file documented as of this encounter Last Filed Vital Signs Vital Sign Reading Time Taken Comments Blood Pressure 156/85 11/15/2019 1:45 PM EDT Pulse 66 11/15/2019 1:15 PM EDT Temperature 36.5 ??C (97.7 ??F) 11/15/2019 11:50 AM E DT Respiratory Rate 18 11/15/2019 1:45 PM EDT Oxygen Saturation 98% 11/15/2019 1:45 PM EDT Inhaled Oxygen Concentration - - Weight 54.4 kg (120 lb) 11/15/2019 11:50 AM EDT Height 157.5 cm (5' 2) 11/15/2019 11:50 AM EDT Body Mass Index 21.95 11/15/2019 11:50 AM EDT documented in this encounter Discharge Instructions * Attachments The following attachments cannot be sent through Care Everywhere. * Ultrasound: Endoscopic (Oral): Post-op (Micronesian) documented in this encounter Medications at Time [...] by mouth every other day. 10/25/2019 04/11/2020 ketoconazole (NIZORAL) 2 % ShampooIndications:Oleg orrheic dermatitis To the scalp alternating with Free and Clear Shampoo 120 mL 2 10/11/2016 11/25/2019 desonide (DESOWEN) 0.05 % CreamIndications:[place] titis,Seborrheic dermatitis Once daily to the forehead and upper eyelids once daily for a week 60 g 1 01/07/2014 11/25/2019 FLUTICASONE/SALMETEROL (ADVAIR HFA INHL) Inhale into the lungs. 11/25/2019 CIS Free Text Med - Calcium 600 with Vitamin D2 02/11/2010 01/28/2020 CIS Free Text Med - Albuterol 1 Puff(s), Inh, PRN 02/11/2010 01/28/20 20 vitamin E 400 unit capsule 02/11/2010 03/31/2020 documented as of this encounter Miscellaneous Notes * Op Note - Ralf Urrutia MD - 11/15/2019 12:44 PM EDT [facility] Operative Note Patient Name: Linda Serrano : [id number] MR#: [id number] Case Date: 11/15/2019 Surgeon: Surgeon(s) and Role: * Ralf Urrutia MD - Primary Preoperative diagnosis: Other chronic pancreatitis Please schedule this patient with me for eus and ercp in the next 3 weeks - 90min with anesthesia okay to use consult time=. Postoperative diagnosis: * No post-op diagnosis entered * Procedure(s): UPPER EUS- ENDOSCOPIC ULTRASOUND ERCP Please see Provation report for details. documented in this encounter Plan of Treatment Upcoming Encounters Date Type Department Care Team (Late st Contact Info) Description 11/02/2023 1:00 PM EDT Office Visit Hematology/Oncology at [address] [phone] Mary Nails APRN [address] [place] [address] MEDICAL ONCOLOGY [place], [place] [phone] 11/02/2023 1:30 PM EDT Infusion Hematology Oncology at [address] [phone] Pending Results Name Type Priority Associated Diagnoses Date /Time XR ERCP Imaging Storage Only Routine 10/17 12:11 PM EDT Scheduled Orders Name Type Priority Associated Diagnoses Orde r Schedule XR ERCP Imaging Storage Only Routine Once PRN (for Radiant use) for 1 Occurrences starting 11/15/2019 until 11/15/2019 documented as of this encounter Procedures Procedure Name Priority Date/Time Associated Diagnosis Comments NON-FLIGHT TEST DATA ACQUISITION TECHNICIAN FINAL REPORT Routine 11/15/2019 12:44 PM EDT HC CARCINO-EMBRYONIC AG ASSAY Routine 11/15/2019 12:44 PM EDT HC AMYLASE Routine 11/15/2019 12:44 PM EDT CYTOPATHOLOGY NON-GYNECOLOGICAL Routine 11/15/2019 12:44 PM EDT Endoscopic Us Exam, Esoph ([id number]) 11/15/2019 12:09 PM EDT Other chronic pancreatitis Please schedule this patient with me for eus and ercp in the next 3 weeks - 90min with anesthesia okay to use consult time=. UPPER EUS-ENDOSCOPIC ULTRASOUND Routine 11/15/2019 12:07 PM EDT documented in this encounter Results * Non-Community Coordinator Final Report (11/15/2019 12:44 PM EDT) Non-Community Coordinator Final Report [id number] ? Location: 4T; EA09; A The signing pathologist has (i) examined the relevant preparation(s) for the specimen(s) and (ii) rendered or confirmed the diagnosis(es). . ? Non-Community Coordinator Final DIAGNOSIS Neoplastic Cells Present See discussion. Electronically signed by: ??Linda CLANCY PhD, Heath Martinez Verified: ??11/18/2019 ?Pathologist Performed at: ??-[facility] Dept. of Pathology, [place], [place] DISCUSSION Pancreas (EUS-guided FNA): Abundant macrophages, mixed leukocytes present and a single group of bland-appearing columnar cells. ??Cell block was examined. See note. Note: The fluid CEA level is consistent with neoplastic process. 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 clear, colorless fluid, with light flecks. Total Preparation: Liquid-Based Prep 1; Cell Block 1. [facility] 11/15/2019 12:4 4 PM EDT Ralf Urrutia MD PATHOLOGY/CYTOLOGY O LORE [facility] [place] [address] * Amylase Level Body Fluid Pancreatic Cyst (11/15/2019 12:44 PM EDT) Amylase, BF 783 unit/L [facility] Comment: No reference range is available for the specimen type submitted. ??The performance of this assay for the submitted type has not been validated and results should be interpreted accordingly and with regard to the patient's clinical status. Amylase BF Type Pancreatic cyst [facility] Pancreas cyst fluid specimen (specimen) 11/15/2019 12:44 PM EDT 11/15/2019 1:56 PM EDT Narrative Resulting Agency Comment Spec In Lab Ralf Urrutia MD BODY FLUIDS AND STOO LS ORDERABLES Performing Organization Address [facility]/State/ZIP Co de Phone Number [facility] [address] * CEA Body Fluid Pancreatic Cyst (11/15/2019 12:44 PM EDT) CEA BF 691.0 ng/mL [facility] Comment: No reference range is available for the specimen type submitted. ??The performance of this assay for the submitted type has not been validated and results should be interpreted accordingly and with regard to the patient's clinical status. CEA BF Type Pancreatic cyst [facility] Pancreas cyst fluid specimen (specimen) 11/15/2019 12:44 PM EDT 11/15/2019 1:56 PM EDT Narrative Resulting Agency Comment Spec In Lab Ralf Urrutia MD BODY FLUIDS AND STOO LS ORDERABLES [facility] [place] [address] * Cytopathology Non-Gynecological (11/15/2019 12:44 PM EDT) AP Specimen 11/15/2019 12:4 4 PM EDT 11/15/2019 12:44 PM EDT Narrative [facility] - 11/15/2019 12:44 PM EDT Specimen requisition ordered. ??Separate Pathology report to follow Ralf Urrutia MD PATHOLOGY/CYTOLOGY O RDMANAV [facility] [place] [address] * UPPER EUS-ENDOSCOPIC ULTRASOUND (11/15/2019 12:07 PM EDT) UPPER ENDOSCOPIC ULTRASOUND [facility] Endoscopy Procedure Date: 11/15/2019 12:07 PM ? Patient Name: Linda Serrano ? N: [id number] ? Date of : 1945 ? Age: 74 ? Order #: [id number] ? Instrument Name: [id number] ? Procedure: ? Upper EUS Indications: ? Suspected solid pancreatic neoplasm, ? Suspected cystic pancreatic neoplasm Providers: ? Ralf Urrutia, Dino Hernandez, ? LOS, Gina Brooke Referring MD: ? Medicines: ? General Anesthesia [...] ? antiplatelet agents. ASA Grade ? Assessment: II - A patient with mild ? systemic disease. After reviewing the ? risks and benefits, the patient was ? deemed in satisfactory condition to ? undergo the procedure. The anesthesia ? plan was to use general anesthesia. ? Immediately prior to administration ? of [...] missing a cancer, and ? adverse medication reactions.The ? Endoscope was introduced through the ? mouth, and advanced to the second ? part of duodenum. The patient ? tolerated the procedure well. ? Findings: ? ENDOSCOPIC FINDING: : ? No gross lesions were noted in the entire esophagus. ? No gross lesions were noted in the entire examined ? stomach. ? No gross lesions were noted in the entire examined ? duodenum. ? ENDOSONOGRAPHIC FINDING: : ? The pancreatic duct was diffusely dilated measuring ? up to 12mm and transitioned to a less dilated caliber ? in the pancreatic head without definite stricture. ? Diagnostic needle aspiration for fluid was performed. ? Color Doppler imaging was utilized prior to needle ? puncture to confirm a lack of significant vascular ? structures within the needle path. One pass was made ? with the 25 gauge needle using a transduodenal ? approach. A stylet was used. The amount of fluid ? collected was 5 mL. The fluid was clear. Sample(s) ? were sent for amylase concentration, cytology and CEA. ? There was no sign of significant endosonographic ? abnormality in the common bile duct. The maximum ? diameter of the duct was 6 mm. ? Minimal debris in the gallbladder body. ? Moderate Sedation: ? 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 fluid sent for analysis. Recommendation: ?- Discharge patient to home. ? - Resume previous diet. ? - Await pathology results. ? - Discuss surgical referral pending ? path ? Procedure Code(s): ?? --- Professional --- ? 92999, Esophagogastroduod enoscopy, ? flexible, transoral; with ? transendoscopic ultrasound-guided ? intramural or transmural fine needle ? aspiration/biopsy( s), (includes ? endoscopic ultrasound examination ? limited to the esophagus, stomach or ? duodenum, and adjacent structures) Diagnosis Code(s): ?? --- Professional --- ? K83.8, Other specified diseases of ? biliary tract ? R93.3, Abnormal findings on ? diagnostic imaging of other parts of ? digestive tract ? --- Technical --- ? K83.8, Other specified diseases of ? biliary tract ? R93.3, Abnormal findings on ? diagnostic imaging of other parts of ? digestive tract CPT copyright 2019 [employer]. All rights reserved. The codes documented in this report are preliminary and upon coder operator review may be revised to meet current compliance requirements. Attending Participation: ? I personally performed the entire procedure. ? Ralf Urrutia, 11/15/2019 12:52:46 PM Number of Addenda: 0 Note Initiated On: 11/15/2019 12:07 PM PROVATION 11/15/2019 12:0 7 PM EDT Unknown GENERAL SURGICAL ORD ERABLES PROVATION documented in this encounter Visit Diagnoses Not on filedocumented in this encounter Active and Recently Administered Medications Times are shown in EDT. Continuous Medication Order 11/13/2019 11/14/2019 11/15/2019 lactated ringers infusion (CANCELED) 100 mL/hr, Intravenous, CONTINUOUS, Starting on Mon11/15/19 at 1215, Until Mon11/15/19 at 1356, Endoscopy (Day of Procedure) 1204 (New Bag - Prov ider: Denzel Torres CRNA)1246 (Anesthesia Volume Adjustment - Provider: Denzel Torres CRNA) documented in this encounter Care Teams Digital Strategist Relationship Specialty Start Date End Date Zeny James APRN [address] [place], [place] [address]Y [facility] [address] [place] [address] PCP - General Family Medicine 09/23/19 documented as of this encounter
--- OUTSIDE RECORDS SUMMARY | 2023-11-02 02:35 | XMS_ITS | Encounter Summary ---
Author Organization [facility] [place] [address] Care Team Providers Care Clinical Operations Manager Name Role Phone Maria Esther Street MD Primary Care Provider [phone] Reason for Visit * Reason Comments Dermatitis Encounter Details Date Type Department Care Team (Late st Contact Info) Description 10/11/2016 10:45 AM EDT Office Visit Dermatology at [facility] [address] [place] [phone] Estela Velasquez MD [facility] [place] [address] Seborrheic dermatitis; AK (actinic keratosis); Solar lentigo; History of basal cell cancer; Seborrheic keratosis Social History Tobacco Use Types Packs/Day Years Used Date Smoking Tobacco: Never Sex and Gender Information Value Date Recorded Sex Assigned at Not on file Gender Identity Not on file Sexual Orientation Not on file documented as of this encounter Progress Notes * Estela Velasquez MD - 10/11/2016 10:45 AM EDT DERMATOLOGY ESTABLISHED PATIENT CLINIC NOTE Date of service: 10/11/2016 Linda Serrano : 1945 Provider: Estela Velasquez MD PROBLEM: worsening rash SKIN HISTORY: [facility], back, January 2010 Lentigines Seborrheic Keratosis HPI Ms. Serrano is a 71 y.o. female .Here for her annual skin examination. I need that shampoo for my scalp. Its not very good ADR: Iodinated contrast- oral and iv dye and House dust ROS General: feeling well Skin: denies other skin complaints EXAM General: NAD, pleasant, cooperative Skin: A total body skin exam except for the genitalia was performed. This includes examination of the skin of the face, ears, neck, chest, axillae, left and right upper and lower extremities, hands, feet, abdomen, back, and buttocks. The genitalia, perineum, and perianal areas were not examined. Significant skin findings: A. Scattered: 0.3-0.6cm light-brown evenly pigmented, well-demarcated macule B. Scattered: 0.4-0.6cm brown papules with waxy, stuck-on appearance. C. Bilateral dorsal hands x 2 and right forehead:0.2-0.3cm scaly irregular pink papules D. pink scaly plaque at the hairline E. Back: well healed scar ASSESSMENT/PLAN: A. Solar Lentigines - Discussed benign nature of lesion and provided reassurance. - Discussed importance of sun protection, sun avoidance strategies, protective clothing, and sunscreen. B. Seborrheic keratosis - Discussed benign nature of lesion and provided reassurance. C. Actinic Keratosis - I discussed this condition with the patient and explored therapeutic options. I recommended this be treated with LN2, patient is in agreement to this treatment plan. Instructed to call if areas do not resolve as expected or if problems arise. If lesions fail to resolve, further work-up may be needed. Procedure Note: Procedure: Destruction of lesions with cryotherapy. Number: 3 Location: as above Discussed procedure and expectations including risks (including risk of hypopigmentation) and benefits. Verbal consent obtained. Frozen with LN2, 15-30 second thaw time, TWICE. There were no complications; the patient tolerated the procedure well. Post-procedure expectations and wound care were reviewed. D. Seborrheic Dermatitis - Refill: Ketoconazole Shampoo E. History of SBCC - NER Return to clinic: 1 year, sooner if needed. Instructed to call if problems arise. I am documenting this encounter acting as the scribe for and in the presence of Dr. Velasquez. [facility], [place] [employer] TEAM MEMBER I am documenting this encounter acting as the scribe for and in the presence of Dr. Velasquez: Jen Hernandez, Clinical Scribe I performed the above scribed service and agree with the accuracy of the documentation in this encounter. Estela Velasquez MD Section of Dermatology [facility] documented in this encounter Plan of Treatment Upcoming Encounters Date Type Department Care Team (Late st Contact Info) Description 11/02/2023 1:00 PM EDT Office Visit Hematology/Oncology at [address] [phone] Mary Nails, [address] MEDICAL ONCOLOGY [place], [place] [address] 11/02/2023 1:30 PM EDT Infusion Hematology Oncology at [address] [phone] documented as of this encounter Visit Diagnoses Diagnosis Seborrheic dermatitis Seborrheic dermatitis, unspecified AK (actinic keratosis) Actinic keratosis Solar lentigo Other dyschromia History of basal cell cancer Personal history of other malignant neoplasm of skin Seborrheic keratosis Other seborrheic keratosis documented in this encounter Care Teams Clinical Operations Manager Relationship Specialty Start Date End Date Maria Esther Street MD [address] [place] [address] [place] [address] PCP - General Family Medicine 10/11/16 09/22/19 documented as of this encounter
--- OUTSIDE RECORDS SUMMARY | 2023-11-02 02:35 | XMS_ITS | Encounter Summary ---
Author Organization [facility] Address [facility] [place] [address] Care Team Providers Care Peer Support Specialist Name Role Phone Villa Krause MD Primary Care Provider [phone] Encounter Details Date Type Department Care Team (Late st Contact Info) Description 04/28/2014 2:21 PM EST - 04/28/2014 11:59 PM [facility] Hospital [place] [address] Social History Tobacco Use Types Packs/Day Years Used Date Smoking Tobacco: Never Sex and Gender Information Value Date Recorded Sex Assigned at Not on file Gender Identity Not on file Sexual Orientation Not on file documented as of this encounter Medications at Time of Discharge Medication Sig Dispensed Refills Start Date End Date desonide (DESOWEN) 0.05 % CreamIndications:[facility] [facility] titis,Seborrheic dermatitis Once daily to the forehead and upper eyelids once daily for a week 60 g 1 01/07/2014 11/25/2019 ketoconazole (NIZORAL) 2 % ShampooIndications:Oleg orrheic dermatitis To the scalp alternating with Free and Clear Shampoo 120 mL 2 01/07/2014 10/11/2016 HYDROCHLOROTHIAZIDE [place] Take 12.5 mg by mouth. 11/14 FLUTICASONE/SALMETEROL (ADVAIR HFA INHL) Inhale into the lungs. 11/25/2019 CIS Free Text Med - Calcium 600 with Vitamin D2 02/11/2010 01/28/2020 CIS Free Text Med - Albuterol 1 Puff(s), Inh, PRN 02/11/2010 01/28/20 20 hydrochlorothiazide (HYDRODIURIL) 25 mg tablet 25 mg, PO, Once daily 02/11/20102015 multivitamin (THERAGRAN) tablet 02/11/2010 0 vitamin E 400 unit capsule 02/11/2010 03/31/2020 Ascorbic Acid (VITAMIN C) 500 mg TbSR 02/11/2010 10/08/2015 alendronate (FOSAMAX) 70 mg tablet 70 MG = 1 Tablet(s), PO, QWEEK 02/11/2010 10/08/2015 documented as of this encounter Plan of Treatment Upcoming Encounters Date Type Department Care Team (Late st Contact Info) Description 11/02/2023 1:00 PM EDT Office Visit Hematology/Oncology at [address] [phone] Mary Nails APRN [address] [place] [address] MEDICAL ONCOLOGY [place], [place] [phone] 11/02/2023 1:30 PM EDT Infusion Hematology Oncology at [address] [phone] documented as of this encounter Procedures Procedure Name Priority Date/Time Associated Diagnosis Comments DIAGNOSTIC RADIOLOGY SCAN 05/01/2014 12:00 AM EST MAMMO DIAG KINJAL 2D UNILATERAL Routine 04/28/2014 3:27 PM EST documented in this encounter Results * SCAN DOC: DIAGNOSTIC RADIOLOGY (05/01/2014 12:00 AM EST) Anatomical Region Laterality Modality Other Scanning Provider MEDIA MGR SCAN EXT O RDR/RSLT * Mammography Screen Kinjal 2D Unilateral (04/28/2014 3:27 PM EST) Anatomical Region Laterality Modality Breast N/A Mammography 04/28/2014 3:27 PM EST Narrative 04/29/2014 9:06 AM EST Reason for Exam: Screening ?? Technique: Craniocaudal (CC) and Medio-lateral Oblique (MLO) views of the left breast obtained with direct digital capture. In addition to routine 2-D imaging, this exam was also performed with 3-D Tomographic Imaging (MLO and CC). ?? The exam was evaluated by CAD version 8.3.17. ?? Findings: ?? This is a negative mammogram (ACR Category 1). There is a stable fibroglandular pattern without significant change from prior studies. There is no mammographic evidence of cancer. The breast is of scattered density. ? CONCLUSION: This is a NEGATIVE mammogram (ACR Category 1). ?? Routine screening mammography is recommended with the frequency dependent upon the patients age and breast cancer risk factors. A letter has been sent to this patient by the breast imaging center. Procedure Note Linda Mares MD - 04/29/2014 Reason for Exam: Screening Technique: Craniocaudal (CC) and Medio-lateral Oblique (MLO) views of theleft breast obtained with direct digital capture. In addition to routine 2-D imaging, this exam was also performed with 3-D Tomographic Imaging (MLOand CC). The exam was evaluated by CAD version 8.3.17. Findings: This is a negative mammogram (ACR Category 1). There is a stablefibroglandular pattern without significant change from prior studies. There is no mammographic evidence of cancer. The breast is of scattered density. CONCLUSION: This is a NEGATIVE mammogram (ACR Category 1). Routine screening mammography is recommended with the frequency dependentupon the patients age and breast cancer risk factors. A letter has been sent to this patient by the breast imaging emmett. Steph Schulz MD IMG MAMMO ORDERABLES documented in this encounter Visit Diagnoses Not on filedocumented in this encounter Care Teams Peer Support Specialist Relationship Specialty Start Date End Date Villa Krause MD [address] [place] [address] PCP - General 12/25/13 10/10/16 documented as of this encounter
--- OUTSIDE RECORDS SUMMARY | 2023-11-02 02:35 | XMS_ITS | Encounter Summary ---
Author Organization [facility] [place] [address] Care Team Providers Care Hospitalist Physician Name Role Phone Steph Schulz MD Primary Care Provider [phone] Reason for Visit * Reason Comments Skin Check Encounter Details Date Type Department Care Team (Late st Contact Info) Description 04/25/2013 1:45 PM EST Follow-Up Dermatology at [facility] [address] [place] [phone] Estela Velasquez MD [facility] [address] [place] [address] SK (seborrheic keratosis) (Primary Dx); Solar lentigo; Nevus Discharge Disposition: Home Social History Tobacco Use Types Packs/Day Years Used Date Smoking Tobacco: Never Sex and Gender Information Value Date Recorded Sex Assigned at Not on file Gender Identity Not on file Sexual Orientation Not on file documented as of this encounter Progress Notes * Patricia Rogers RN - 04/25/2013 1:16 PM EST DERMATOLOGY ESTABLISHED PATIENT CLINIC NOTE Date of service: 04/25/2013 Linda Serrano : 1945 Provider: Estela Velasquez MD PROBLEM: Skin check SKIN HISTORY: [facility] back January 2010 Lentigines HPI Ms. Serrano is a 67 y.o. year old female here today for a full skin check. C/o a spot on her back that she can not see C/o a spot on her bottom ADR: House dust MEDS: Current Outpatient Prescriptions on File Prior to Visit Medication Sig Dispense Refill ??? HYDROCHLOROTHIAZIDE ORAL Take 12.5 mg by mouth. ??? FLUTICASONE/SALMETEROL (ADVAIR HFA INHL) Inhale into the lungs. ??? CIS Free Text Med - Calcium 600 with Vitamin D2 ??? CIS Free Text Med - Albuterol 1 Puff(s), Inh, PRN ??? hydrochlorothiazide (HYDRODIURIL) 25 mg tablet 25 mg, PO, Once daily ??? multivitamin (THERAGRAN) tablet ??? vitamin E 400 unit capsule ??? Ascorbic Acid (VITAMIN C) 500 mg TbSR ??? alendronate (FOSAMAX) 70 mg tablet 70 MG = 1 Tablet(s), PO, QWEEK ??? FLUTICASONE PROPIONATE (FLOVENT HFA INHL) ROS General: feeling well Skin: denies other skin complaints EXAM General: NAD, pleasant, cooperative Skin: A total body skin exam except for areas covered by underwear was performed. This includes examination of the skin of the face, ears, neck, chest, axillae, left and right upper and lower extremities, hands and feet, abdomen, and except the areas covered by underwear were not examined. Significant skin findings: A. Multiple 0.4-0.6cm brown papules with waxy, stuck-on appearance. Milia-like cysts, comedone-likeopenings and/or fissuring on dermoscopy. B. 0.3-0.6cm light-brown evenly pigmented, well-demarcated macule C. Multiple, 0.3-0.5cm, medium-brown, evenly-pigmented macules and papules. All with regular pigment pattern on dermoscopy. No pigmented lesions suspicious for melanoma. ASSESSMENT/PLAN: A. Sk's, pt reassured B. Lentigines, Sun avoidance, protective clothing and the use of SPF 30 sunscreen is advised. Observe closely for skin changes and call if such occurs C. Benign appearing nevi, pt reassured D. RTC in one year for a full skin check I am documenting this encounter acting as the scribe for and in the presence of Dr. Velasquez. PATRICIA ROGERS, LOS I performed the above scribed service and agree with the accuracy of the documentation in this encounter. Estela Velasquez MD Section of Dermatology [facility] documented in this encounter Plan of Treatment Upcoming Encounters Date Type Department Care Team (Late st Contact Info) Description 11/02/2023 1:00 PM EDT Office Visit Hematology/Oncology at [address] [phone] Mary Nails APRN [address] [place] [address] DR MEDICAL ONCOLOGY [place], [place] [id number] 11/02/2023 1:30 PM EDT Infusion Hematology Oncology at [address] [phone] documented as of this encounter Visit Diagnoses Diagnosis SK (seborrheic keratosis)- Primary Other seborrheic keratosis Solar lentigo Other dyschromia Nevus Benign neoplasm of skin, site unspecified documented in this encounter Care Teams Hospitalist Physician Relationship Specialty Start Date End Date Steph Schulz MD [address] [place] [address] PCP - General 03/09/10 12/24/13 documented as of this encounter
--- OUTSIDE RECORDS SUMMARY | 2023-11-02 02:35 | XMS_ITS | Encounter Summary ---
Author Organization [facility] [place] [address] Care Team Providers Care Legal Analyst Name Role Phone Zeny James APRN Primary Care Provider Encounter Details Date Type Department Care Team (Late st Contact Info) Description 10/02/2019 Telephone [place] [address] Madina Orellana MD [facility] [place] [address] Social History Tobacco Use Types Packs/Day Years Used Date Smoking Tobacco: Never Smokeless Tobacco: Never Sex and Gender Information Value Date Recorded Sex Assigned at Not on file Gender Identity Not on file Sexual Orientation Not on file documented as of this encounter Miscellaneous Notes * Telephone Encounter - Madina Orellana - 10/02/2019 2:18 PM EDT Transfer Center Call: I received a call from Dr. Neff at [facility]. Briefly, this is a 74 yo woman with hx of who was admitted with abd pain since last Monday, nausea and found to have dilated PD on CT with peripancreatic stranding. Lipase and LFTs are normal. She has received supportive care. Abd US and MRCP were negative for stones, CBD dilation or mass. She has had the pancreatic ductal dilation on imaging in the past. She continues to have abd pain and nausea. Drinks 1 glass of wine per week. No medications or prior episodes of pancreatitis. Exam with LUQ tenderness with radiation into the RUQ and back. Afebrile, VSS. Based on the information provided to me that has been outlined above, the general recommendations for this type of patient is supportive care for pancreatitis with outpatient GI follow up. She may need an outpatient EUS for evaluation of the dilated PD, which is chronic per Dr. Neff. This is not an official consult, as my recommendations are limited by my inability to interview and examine the patient as well as personally review the medical record, imaging, and laboratory findings. Madina Orellana MD Gastroenterology PGY-5 10/02/2019 2:18 PM Pager #[phone] documented in this encounter Plan of Treatment Upcoming Encounters Date Type Department Care Team (Late st Contact Info) Description 11/02/2023 1:00 PM EDT Office Visit Hematology/Oncology at [address] [phone] Mary Nails APRN [address] [place] [address] DR MEDICAL ONCOLOGY [place], [place] [address] 11/02/2023 1:30 PM EDT Infusion Hematology Oncology at [address] [phone] documented as of this encounter Visit Diagnoses Not on filedocumented in this encounter Care Teams Legal Analyst Relationship Specialty Start Date End Date Zeny James APRN [address] [place] [address] [address] [place] [address] PCP - General Family Medicine 09/23/19 documented as of this encounter
--- OUTSIDE RECORDS SUMMARY | 2023-11-02 02:35 | XMS_ITS | Encounter Summary ---
Author Organization [facility] [place] [address] Care Team Providers Care Sprinkler Fitter Apprentice Name Role Phone Villa Krause MD Primary Care Provider [phone] Reason for Visit * Reason Comments Skin Check Encounter Details Date Type Department Care Team (Late st Contact Info) Description 10/08/2015 10:00 AM EDT Office Visit Dermatology at [facility] [address] [place] [address] Estela Velasquez MD [facility] [place] [address] Multiple benign nevi; Reyes angioma; Seborrheic keratosis, inflamed; Solar lentigo; SK (seborrheic keratosis) Social History Tobacco Use Types Packs/Day Years Used Date Smoking Tobacco: Never Sex and Gender Information Value Date Recorded Sex Assigned at Not on file Gender Identity Not on file Sexual Orientation Not on file documented as of this encounter Progress Notes * Saul Mohr, UC[facility] - 10/08/2015 9:49 AM EDT DERMATOLOGY ESTABLISHED PATIENT CLINIC NOTE Date of service: 10/08/2015 Linda Serrano : 1945 Provider: Estela Velasquez MD PROBLEM: Skin check SKIN HISTORY: [facility], back, January 2010 Lentigines SKs HPI Linda Serrano is a 70 y.o. year old female. Patient is here for a full skin check. No specific lesions that are concerning. No spots that are changing colors, itching, or bleeding. ADR: Allergies Allergen Reactions ??? Iodinated Contrast Media - Iv Dye Shortness Of Breath ??? House Dust ROS General: feeling well Skin: denies other [...] were not examined. Significant skin findings: A. Back and scattered: Multiple 0.4-1 cm, brown-black papules/plaques with waxy stuck on appearance B. Photo distributed: 0.3-0.6cm light-brown evenly pigmented, well-demarcated macule C. Left dorsal hand: inflamed 0.4-1 cm, brown-black papules/plaques with waxy stuck on appearance D. Scattered multiple 0.2-0.4cm bright red, well-demarcated papules E. Scattered, 0.3-0.5cm, medium-brown, evenly-pigmented macules and papules. All with regular pigment pattern on dermoscopy. No pigmented lesions suspicious for melanoma. ASSESSMENT/PLAN: A. Seborrheic keratoses - Reassurance provided. B. Solar lentigines - Reassurance provided. - Sun avoidance, protective clothing and the use of SPF 30 sunscreen is advised. Observe closely for skin changes and call if such occurs. C. Inflamed seborrheic keratoses Procedure Note: Procedure: Destruction of lesion(s) with cryotherapy. Number: 1 Location: left dorsal hand Discussed procedure and expectations including risks (including risk of hypopigmentation) and benefits. Verbal consent obtained. Frozen with LN2, 15-30 second thaw time, TWICE. There were no complications; the patient tolerated the procedure well. Post-procedure expectations and wound care were reviewed. D. Reyes angiomas - Reassurance provided. E. Benign appearing nevi with even pigmentation and well defined margins are noted. - Reassurance provided. RTC: 1 year Note initiated by: SAUL MOHR LPN Routed to physician for review and changes: Estela Velasquez MD Section of Dermatology [facility] documented in this encounter Plan of Treatment Upcoming Encounters Date Type Department Care Team (Late st Contact Info) Description 11/02/2023 1:00 PM EDT Office Visit Hematology/Oncology at [address] [phone] Mary Nails, PHOTO PRINT SPECIALIST[address] MEDICAL ONCOLOGY [place], [place] [address] 11/02/2023 1:30 PM EDT Infusion Hematology Oncology at [address] [phone] documented as of this encounter Visit Diagnoses Diagnosis Multiple benign nevi Benign neoplasm of skin, site unspecified Reyes angioma Nevus, non-neoplastic Seborrheic keratosis, inflamed Inflamed seborrheic keratosis Solar lentigo Other dyschromia SK (seborrheic keratosis) Other seborrheic keratosis documented in this encounter Care Teams Sprinkler Fitter Apprentice Relationship Specialty Start Date End Date Villa Krause MD [address] [place] [address] PCP - General 12/25/13 10/10/16 documented as of this encounter
--- OUTSIDE RECORDS SUMMARY | 2023-11-02 02:35 | XMS_ITS | Encounter Summary ---
Author Organization [facility] [place] [address] Care Team Providers Care Hotel Security Officer Name Role Phone Maria Esther Street MD Primary Care Provider Encounter Details Date Type Department Care Team (Latest Contact Info) Description 10/11/2016 11:10 AM EDT - 10/11/2016 11:59 PM EDT Hospital [place] [phone] MD [address] [place] [phone] Encounter for screening mammogram for breast cancer Discharge Disposition: Home Social History Tobacco Use Types Packs/Day Years Used Date Smoking Tobacco: Never Sex and Gender Information Value Date Recorded Sex Assigned at Not on file Gender Identity Not on file Sexual Orientation Not on file documented as of this encounter Medications at Time of Discharge Medication Sig Dispensed Refills Start Date End Date fish oil-omega-3 fatty acids 1,000 mg Capsule Take 1 g by mouth daily. ketoconazole (NIZORAL) 2 % ShampooIndications:Oleg orrheic dermatitis To the scalp alternating with Free and Clear Shampoo 120 mL 2 10/11/2016 11/25/2019 desonide (DESOWEN) 0.05 % CreamIndications:[place] titis,Seborrheic dermatitis Once daily to the forehead and upper eyelids once daily for a week 60 g 1 01/07/2014 11/25/2019 HYDROCHLOROTHIAZIDE ORAL Take 12.5 mg by mouth. 11/14 FLUTICASONE/SALMETEROL (ADVAIR HFA INHL) Inhale into the lungs. 11/25/2019 CIS Free Text Med - Calcium 600 with Vitamin D2 02/11/2010 01/28/2020 CIS Free Text Med - Albuterol 1 Puff(s), Inh, PRN 02/11/2010 01/28/20 20 multivitamin (THERAGRAN) tablet 02/11/2010 0 vitamin E 400 unit capsule 02/11/2010 03/31/2020 documented as of this encounter Plan of Treatment Upcoming Encounters Date Type Department Care Team (Late st Contact Info) Description 11/02/2023 1:00 PM EDT Office Visit Hematology/Oncology at [address] [phone] Mary Nails APRN [address] [place] [address] MEDICAL ONCOLOGY [place], [place] [phone] 11/02/2023 1:30 PM EDT Infusion Hematology Oncology at [address] [phone] documented as of this encounter Procedures Procedure Name Priority Date/Time Associated Diagnosis Comments MAMMO SCREENING CAD AND SPEEDY LEFT Routine 10/11/2016 11:26 AM EDT Encounter for screening mammogram for breast cancer documented in this encounter Results * Mammo Screen CAD and Speedy Left (Generic) (10/11/2016 11:26 AM EDT) Anatomical Region Laterality Modality Breast Left Mammography Narrative 10/11/2016 11:31 AM EDT LEFT BREAST MAMMOGRAPHY REASON FOR EXAM: Screening. S/P Right mastectomy TECHNIQUE: CC and MLO views were obtained of the left breast using standard 2-D mammography as well as 3-D tomosynthesis. Computer aided detection was used. This is compared with prior images. FINDINGS: There are scattered areas of fibroglandular density. There are no suspicious microcalcifications, masses, or areas of distortion. The pattern is stable. CONCLUSION: No mammographic evidence of malignancy. RECOMMENDATION: The [employer] and The Society of Breast Imaging recommend annual screening beginning at age 40 for the general female population. Screening should continue as long as a woman is in good health and is expected to live 10 more years or longer. All women should be familiar with the known benefits, limitations, and potential harms linked to breast cancer screening. They should also know how their breasts normally look and feel and report any breast changes to a health care provider right away. Some women - because of their family history, a genetic tendency, or certain other factors - should be screened with MRIs along with mammograms. (The number of women who fall into this category is very small.) The patient and health care provider should discuss the patient history and decide if earlier screening and breast MRI are appropriate. A result letter has been sent to this patient by the [facility]. BIRADS CATEGORY 1: NEGATIVE Maria Esther Street MD IMG MAMMO ORDERABLE S documented in this encounter Visit Diagnoses Diagnosis Encounter for screening mammogram for breast cancer documented in this encounter Care Teams Hotel Security Officer Relationship Specialty Start Date End Date Maria Esther Street MD [address] [place] [address] [place] [phone] PCP - General Family Medicine 10/11/16 09/22/19 documented as of this encounter
--- OUTSIDE RECORDS SUMMARY | 2023-11-02 02:35 | XMS_ITS | Encounter Summary ---
[place] [address] Care Team Providers Care Company Miner Blasting Name Role Phone Zeny James APRN Primary Care Provider Reason for Referral * Consultation (Urgent) - Closed Specialty Diagnoses / Procedures Referred By Nir potts Referred To Contact Gastroenterology Diagnoses Other chronic pancreatitis [place] [address] [facility] Endoscopy [address] [place] [phone] Referral ID Status Reason Start Date Expiration Date V isits Requested Visits Authorized [id number] Closed Consult, Test & Treat 11/04/2019 11/03/2020 1 1 Reason for Visit * Consultation (Routine) - Closed Specialty Diagnoses / Procedures Referred By Nir potts Referred To Contact Gastroenterology Diagnoses Abdominal pain with dilated pancreatic duct, chronic pancreatitis David Kovacs, DO [address] [place] [address] [facility] [address] [place] [phone] Referral ID Status Reason Start Date Expiration Date Visits Re quested Visits Authorized [id number] Closed 10/11/2019 10/10/2020 1 1 Encounter Details Date Type Department Care Team (Latest Contact Info) Description 11/04/2019 3:00 PM EDT TH Visit (TeleHealth) Gastroenterology at [facility] [phone] Ralf Urrutia MD [facility] [place] [address] Other chronic pancreatitis Social History Tobacco Use Types Packs/Day Years Used Date Smoking Tobacco: Never Smokeless Tobacco: Never Sex and Gender Information Value Date Recorded Sex Assigned at Not on file Gender Identity Not on file Sexual Orientation Not on file documented as of this encounter Progress Notes * Ralf Urrutia MD - 11/04/2019 3:00 PM EDT [facility] Section of Gastroenterology and Hepatology Outpatient Consultation [facility] Gastroenterology Telephone Note Primary care provider: Zeny James APRN Referred by David Kovacs Reason for visit: Abnormal imaging History of Present Illness: Linda Serrano is a 74 y.o. woman referred for evaluation of a dilated pancreatic duct. She recalls 09/27 - picked up granddaughter, was feeling fine, next day at lunch lost appetite (still low appetite), and then started to experience severe 8/10 abdominal pain, across abdomen, 9 PM went to [facility] ED. UNderwent CT scan, declined admission, returned Monday for ongoing pain and was admitted. Says lab work was unremarkable, ultrasound and MRI also performed - dilated pancreatic duct - - discharged after 4 days - bland diet - pain controled with narcotics - went home with hydrocodone (didn't take) --- since that bennett has been slowely feeling better on low fat hig h fiber diet with extra water Was feeling fine, Review of Systems: All other systems negative except as above in HPI Past Medical History: Diagnosis Date ??? Basal cell carcinoma 2010 [facility]-back ??? Breast cancer Past Surgical History: Procedure Laterality Date ??? CREATED BY INTERFACE BREAST BIOPSY / RT/MULTIPLE Procedure Date: 01/23/2001 ??? CREATED BY INTERFACE COLONOSCOPY (ENDO) Procedure Date: 12/24/2003 ??? CREATED BY INTERFACE Entered not Verified Procedure Date: 01/22/2010 ??? CREATED BY INTERFACE MODIFIED RADICAL MASTECTOMY / RT Procedure Date: 02/06/2001 ??? MASTECTOMY Right with RT ??? PRO COLONOSCOPY, DIAGNOSTIC 01/07/2014 COLONOSCOPY, DIAGNOSTIC performed by Izzy Johnson MD at [facility] ENDOSCOPY Social History: reports that she has never smoked. She has never used smokeless tobacco. Family History: family history includes Breast Cancer in her sister. Current Outpatient Medications Medication Sig Dispense Refill ??? melatonin 5 mg Tablet Take by mouth. ??? cholecalciferol, Vitamin D3, 1,000 unit Capsule Take 1,000 Units by mouth daily. ??? multivit,iron,minerals/lutein (CENTRUM SILVER ULTRA WOMEN'S ORAL) Take by mouth daily. ??? magnesium oxide 400 mg magnesium Capsule Take by mouth. ??? ketoconazole (NIZORAL) 2 % Shampoo To the scalp alternating with Free and Clear Shampoo 120 mL 2 ??? fish oil-omega-3 fatty acids 1,000 mg Capsule Take 2 g by mouth daily. ??? desonide (DESOWEN) 0.05 % Cream Once daily to the forehead and upper eyelids once daily for a week 60 g 1 ??? HYDROCHLOROTHIAZIDE ORAL Take 12.5 mg by mouth. ??? FLUTICASONE/SALMETEROL (ADVAIR HFA INHL) Inhale into the lungs. ??? CIS Free Text Med - Calcium 600 with Vitamin D2 ??? CIS Free Text Med - Albuterol 1 Puff(s), Inh, PRN ??? multivitamin (THERAGRAN) tablet ??? vitamin E 400 unit capsule No current facility-administered medications for this visit. Allergies Allergen Reactions ??? Iodinated Contrast Media Shortness Of Breath ??? House Dust No Physical Examination Performed because this was a telephone/telehealth visit Additional Testing: Reviewed available labs, imaging and endoscopy results in EDH/CIS as well as Scan Docs tab. Labs: No results found for: WBC, HGB, HCT, MCV, PLATELET Chemistry No results found for: NA, K, CL, CO2, BUN, CREATININE No results found for: CALCIUM, ALKPHOS, AST, ALT, BILITOT No results found for: ALT, AST, GGT, ALKPHOS, BILITOT IMPRESSION AND RECOMMENDATIONS: Linda Maggie is a 74 y.o. woman with a history of breast cancer, and otherwise well, recently presented with severe abdominal pain from which she has been gradually recovering, but was found to have marked pancreatic duct dilation. Her PD is dilated and it looks to me like she may have a transition in the pancreatic genu suggestive of a stricture. I have recommended further evaluation with EUS and ERP with brushings. I counseled her on the implications of theimaging findings, potential findings including benign or malignant etiologies, and risks of the procedures. She would like to proceed, and I will ask to have her scheduled in the near term. Patient verbally consents to this telephone visit and understands that this visit may be billed, similar to a clinic office visit. I provided care to the patient today via telephone call, 30 minutes telephone visit was spent in discussion with patient on above. Ralf Urrutia MD Zeny James APRN [address] [place] [address] David Kovacs DO [address] [place] [address] Gastroenterology Section [facility] documented in this encounter Plan of Treatment Upcoming Encounters Date Type Department Care Team (Late st Contact Info) Description 11/02/2023 1:00 PM EDT Office Visit Hematology/Oncology at [address] [phone] Mary Nails APRN [address] [place] [address] DR MEDICAL ONCOLOGY [place], [place] [id number] 11/02/2023 1:30 PM EDT Infusion Hematology Oncology at [address] [phone] Scheduled Referrals Name Type Priority Associated Diagnoses Order Schedule Referral to Gastroenterology Outpatient Referral Routine Other Chronic Pancreatitis Ordered: 11/04/2019 documented as of this encounter Visit Diagnoses Diagnosis Other chronic pancreatitis documented in this encounter Care Teams Company Miner Blasting Relationship Specialty Start Date End Date Zeny James APRN [address] [place] [address] PCP - General Family Medicine 09/23/19 documented as of this encounter
--- OUTSIDE RECORDS SUMMARY | 2023-11-02 02:35 | XMS_ITS | Encounter Summary ---
Author Organization [facility] Address [facility] [place] [address] Care Team Providers Care Network Director Name Role Phone Steph Schulz MD Primary Care Provider [phone] Encounter Details Date Type Department Care Team (Late st Contact Info) Description 03/26/2012 12:32 PM EST - 03/26/2012 11:59 PM [facility] Hospital [place] [address] Social History Tobacco Use Types Packs/Day Years Used Date Smoking Tobacco: Never Sex and Gender Information Value Date Recorded Sex Assigned at Not on file Gender Identity Not on file Sexual Orientation Not on file documented as of this encounter Medications at Time of Discharge Medication Sig Dispensed Refills Start Date End Date HYDROCHLOROTHIAZIDE ORAL Take 12.5 mg by mouth. 11/15/2019 FLUTICASONE/SALMETEROL (ADVAIR HFA INHL) Inhale into the lungs. 11/25/2019 CIS Free Text Med - Calcium 600 with Vitamin D2 02/11/2010 01/28/2020 CIS Free Text Med - Albuterol 1 Puff(s), Inh, PRN 02/11/2010 01/28/20 hydrochlorothiazide (HYDRODIURIL) 25 mg tablet 25 mg, PO, Once daily 02/11/2010 10/08/2015 multivitamin (THERAGRAN) tablet 02/11/2010 11/15/2019 vitamin E 400 unit capsule 02/11/2010 03/31/2020 Ascorbic Acid (VITAMIN C) 500 mg TbSR 02/11/2010 10/08/2015 alendronate (FOSAMAX) 70 mg tablet 70 MG = 1 Tablet(s), PO, QWEEK 02/11/2010 10/08/2015 FLUTICASONE PROPIONATE (FLOVENT HFA INHL) 02/11/2010 4 documented as of this encounter Plan of Treatment Upcoming Encounters Date Type Department Care Team (Late st Contact Info) Description 11/02/2023 1:00 PM EDT Office Visit Hematology/Oncology at [address] [phone] Mary Nials APRN [address] [place] [address] [place] [address] 11/02/2023 1:30 PM EDT Infusion Hematology Oncology at [address] [phone] documented as of this encounter Procedures Procedure Name Priority Date/Time Associated Diagnosis Comments MAMMO UNILATERAL DIGITAL SCREENING Routine 03/26/2012 1:52 PM EST documented in this encounter Results * Mammo unilateral digital screening (03/26/2012 1:52 PM EST) Anatomical Region Laterality Modality Breast N/A Mammography 03/26/2012 1:52 PM EST Narrative 03/27/2012 11:39 AM EST Reason for Exam: Screening Technique: Craniocaudal (CC) and Medio-lateral Oblique (MLO) views of the Left breast obtained with direct digital capture. The exam was evaluated by CAD version 8.3.17. Findings: This is a negative mammogram (ACR Category 1). ??There is a stable fibroglandular pattern without significant change from prior studies. There is no mammographic evidence of cancer. ??The breast is of scattered density. CONCLUSION: This is a NEGATIVE mammogram (ACR Category 1). ?? Routine screening mammography is recommended with the frequency dependent upon the patient's age and breast cancer risk factors. A letter has been sent to this patient by the breast imaging center. Procedure Note Loida Kenney MD - 03/27/2012 Reason for Exam: Screening Technique: Craniocaudal (CC) and Medio-lateral Oblique (MLO) views of theLeft breast obtained with direct digital capture. The exam was evaluated by CAD version 8.3.17. Findings: This is a negative mammogram (ACR Category 1). There is a stable fibroglandular pattern without significant change from prior studies. There is no mammographic evidence of cancer. The breast is of scattered density. CONCLUSION: This is a NEGATIVE mammogram (ACR Category 1). Routine screening mammography is recommended with the frequency dependentupon the patient's age and breast cancer risk factors. A letter has been sent to this patient by the breast imaging center. Steph Schulz MD IMG MAMMO ORDERABLES documented in this encounter Visit Diagnoses Not on filedocumented in this encounter Care Teams Network Director Relationship Specialty Start Date End Date Steph Schulz MD [address] [place] [address] PCP - General 03/09/10 12/24/13 documented as of this encounter
--- OUTSIDE RECORDS SUMMARY | 2023-11-02 02:35 | XMS_ITS | Encounter Summary ---
Author Organization [facility] [place] [address] Care Team Providers Care Pattern Puncher Name Role Phone Maria Esther Street MD Primary Care Provider [phone] Reason for Visit * Reason Comments Follow-up Skin Check Encounter Details Date Type Department Care Team (Late st Contact Info) Description 10/12/2017 11:30 AM EDT Office Visit Dermatology at [address] [phone] Estela Cavazos MD [facility] [place] [address] Solar lentigo; Seborrheic keratosis; Multiple benign nevi; Reyes angioma Social History Tobacco Use Types Packs/Day Years Used Date Smoking Tobacco: Never Smokeless Tobacco: Never Sex and Gender Information Value Date Recorded Sex Assigned at Not on file Gender Identity Not on file Sexual Orientation Not on file documented as of this encounter Progress Notes * Estela Cavazos MD - 10/12/2017 11:30 AM EDT DERMATOLOGY ESTABLISHED PATIENT CLINIC NOTE Date of service: 10/12/2017 Linda Serrano : 1945 Provider: Estela Cavazos MD PROBLEM: Full skin exam SKIN HISTORY: SBCC, back,??January 2010 Lentigines Seborrheic Keratosis HPI Ms. Serrano is a 72 y.o. female. Established patient, last seen 10/11/2016. Here today for a full skin exam. She has an area of concern on the right upper thigh. Unknown length of time present. FH: none ADR: Iodinated contrast- oral and iv dye and House dust MEDS: Current Outpatient Prescriptions on File Prior to Visit Medication Sig Dispense Refill ??? ketoconazole (NIZORAL) 2 % Shampoo To [...] - Calcium 600 with Vitamin D2 ??? multivitamin (THERAGRAN) tablet ??? vitamin E 400 unit capsule ??? CIS Free Text Med - Albuterol 1 Puff(s), Inh, PRN No current facility-administered medications on file prior to visit. ROS General: feeling well Skin: denies other skin complaints EXAM General: NAD, pleasant, cooperative Skin: The patient was asked to disrobe to the level of their comfort. Full skin examination of the scalp, hair, head, face, neck, back, chest, abdomen, right and left upper extremities, right and left lower extremities and buttocks was normal with the exception of the findings listed below. Significant skin findings: A. Multiple 0.2-0.4cm bright red, well-demarcated papules. B. Multiple 0.4-0.6cm brown papules with waxy, stuck-on appearance. C. 0.3-0.6cm light-brown evenly pigmented, well-demarcated macules. D. Multiple, 0.3-0.5cm, medium-brown, evenly-pigmented macules and papules. No pigmented lesions suspicious for melanoma. E. Back: well healed scar. ASSESSMENT/PLAN: A. Reyes Angiomas - Reassured about benign nature and natural history. B. Seborrheic Keratoses - Reassured about benign nature and natural history. C. Solar Lentigines - Reassured about benign nature and natural history. - Sun avoidance, protective clothing and the use of SPF 30 sunscreen is advised. Observe closely for skin changes and call if such occurs D. Benign Appearing Nevi - Reassured about benign nature and natural history. E. H/o SBCC - NER. RTC September 2018 for 1 year full skin exam, hx SBCC- or sooner as needed. Note initiated and routed to physician for review and change by: NEETA GA LPN I, Marjan Duran, have performed the documentation for this encounter in the presence of and acting as a scribe for ESTELA CAVAZOS MD. I performed the services which were documented by the scribe, and I agree with the accuracy of the documentation in this encounter. ESTELA CAVAZOS MD. Estela Cavazos MD Section of Dermatology [facility] documented in this encounter Plan of Treatment Upcoming Encounters Date Type Department Care Team (Late st Contact Info) Description 11/02/2023 1:00 PM EDT Office Visit Hematology/Oncology at [address] [phone] Mary Nails [address] MEDICAL ONCOLOGY [place], [place] [id number] 11/02/2023 1:30 PM EDT Infusion Hematology Oncology at [address] [phone] documented as of this encounter Visit Diagnoses Diagnosis Solar lentigo Other dyschromia Seborrheic keratosis Other seborrheic keratosis Multiple benign nevi Benign neoplasm of skin, site unspecified Reyes angioma Nevus, non-neoplastic documented in this encounter Care Teams Pattern Puncher Relationship Specialty Start Date End Date Maria Esther Street MD [address] [place] [address] [place] [address] PCP - General Family Medicine 10/11/16 09/22/19 documented as of this encounter
--- OUTSIDE RECORDS SUMMARY | 2023-11-02 02:35 | XMS_ITS | Encounter Summary ---
Author Organization [facility] Address [facility] [place] [address] Care Team Providers Care Clearance Representative Name Role Phone Zeny James APRN Primary Care Provider Encounter Details Date Type Department Care Team (Late st Contact Info) Description 11/26/2019 Telephone [place] [phone] Regino Carolina MD [facility] [place] [address] Social History Tobacco Use Types Packs/Day Years Used Date Smoking Tobacco: Never Smokeless Tobacco: Never Sex and Gender Information Value Date Recorded Sex Assigned at Not on file Gender Identity Not on file Sexual Orientation Not on file documented as of this encounter Miscellaneous Notes * Telephone Encounter - Regino Carolina MD - 11/26/2019 2:58 PM EDT Images from the original note were not included. I called to let Maricruz know the results of her CA19 and the rationale for the PET scan. Her CA19 was 255. CT chest is not necessary as the PET scan can also be used to stage the lungs for metastases. I am scheduled to see her back in clinic after the PET scan- scheduled on 12/05/19. Clinic appointment is scheduled for 12/09/19. Jennifer Carolina MD 11/26/2019 3:03 PM This note was created using [employer] (D[employer]) voice recognition software. Lisa Krause Kerrington D, MD ?? Linda called saying her paperwork from clinic appt yesterday says she needs to have a CT of the chest, but you didn't mention that to her. When ??you call her about lab results, can you clarify and let me know if I need to schedule Francois Lisa documented in this encounter Plan of Treatment Upcoming Encounters Date Type Department Care Team (Late st Contact Info) Description 11/02/2023 1:00 PM EDT Office Visit Hematology/Oncology at [address] [phone] Mary Nails APRN [address] [place] [address] MEDICAL ONCOLOGY [place], [place] [id number] 11/02/2023 1:30 PM EDT Infusion Hematology Oncology at [address] [phone] documented as of this encounter Visit Diagnoses Not on filedocumented in this encounter Care Teams Clearance Representative Relationship Specialty Start Date End Date Zeny James APRN [address] [place] [address] PCP - General Family Medicine 09/23/19 documented as of this encounter
--- OUTSIDE RECORDS SUMMARY | 2023-11-02 02:35 | XMS_ITS | Encounter Summary ---
Author Organization [facility] [place] [address] Care Team Providers Care Catalog Library Assistant Name Role Phone Maria Esther Street MD Primary Care Provider [phone] Reason for Visit * Reason Comments Skin Check Encounter Details Date Type Department Care Team (Late st Contact Info) Description 11/15/2018 2:15 PM EDT Office Visit Dermatology at [facility] [address] [place] [address] Estela Cavazos MD [facility] [place] [address] Reyes angioma; SK (seborrheic keratosis); Lentigines; Multiple benign nevi Social History Tobacco Use Types Packs/Day Years Used Date Smoking Tobacco: Never Smokeless Tobacco: Never Sex and Gender Information Value Date Recorded Sex Assigned at Not on file Gender Identity Not on file Sexual Orientation Not on file documented as of this encounter Progress Notes * Estela Cavazos MD - 11/15/2018 2:15 PM EDT DERMATOLOGY ESTABLISHED PATIENT CLINIC NOTE Date of service: 11/15/2018 Linda Serrano : 1945 Provider: Estela Cavazos MD Preferred name: Linda Preferred contact method with results: Home Message okay: yes PROBLEM: skin cancer screening SKIN HISTORY: SBCC, back,??January 2010 Lentigines Seborrheic Keratosis HPI Ms. Serrano is a 73 y.o. year old female. Established patient, last seen 10/12/2017. Here today for a full skin examination. She is worried about a few areas here and there. Denies any itching, pain, or bleeding. ADR: Iodinated contrast media and House dust MEDS: Current Outpatient Medications on File Prior to Visit Medication Sig [...] 400 unit capsule No current facility-administered medications on file prior [...] papules. No pigmented lesions suspicious for melanoma. ASSESSMENT/PLAN: A. Reyes Angiomas - Reassured about [...] Reassured about benign nature and natural history. RTC 1 year for FSE Note initiated and routed to physician for review and change by: Chela Son, UCHE I, Bruno Augustine, have performed the documentation for this encounter in the presence of and actingas a scribe for ESTELA CAVAZOS MD. I performed the services which were documented by the scribe, and I agree with the accuracy of the documentation in this encounter. ESTELA CAVAZOS MD. Estela Cavazos MD Section of Dermatology [facility] documented in this encounter Plan of Treatment Upcoming Encounters Date Type Department Care Team (Late st Contact Info) Description 11/02/2023 1:00 PM EDT Office Visit Hematology/Oncology at [address] [phone] Nails [address] [place] [address] 11/02/2023 1:30 PM EDT Infusion Hematology Oncology at [address] [phone] documented as of this encounter Visit Diagnoses Diagnosis Reyes angioma Nevus, non-neoplastic SK (seborrheic keratosis) Other seborrheic keratosis Lentigines Other dyschromia Multiple benign nevi Benign neoplasm of skin, site unspecified documented in this encounter Care Teams Catalog Library Assistant Relationship Specialty Start Date End Date Maria Esther Street MD [address] [place] [address] [place] [address] PCP - General Family Medicine 10/11/16 09/22/19 documented as of this encounter
--- OUTSIDE RECORDS SUMMARY | 2023-11-02 02:35 | XMS_ITS | Encounter Summary ---
Author Organization [facility] [place] [address] Care Team Providers Care Talent Program Manager Name Role Phone Zeny James APRN Primary Care Provider [phone] Reason for Referral * Diagnostic Test (Routine) - Closed Specialty Diagnoses / Procedures Referred By Contac t Referred To Contact Radiology Diagnoses Malignant neoplasm of pancreatic duct Procedures NM PET CT Skull Base to Mid-thigh Regino Carolina MD [facility] [place] [address] [place] [address] Referral ID Status Reason Start Date Expiration Date V isits Requested Visits Authorized [id number] Closed Specialty Service Requested 11/25/2019 05/27/2021 1 1 Reason for Visit * Diagnostic Test (Routine) - Closed Specialty Diagnoses / Procedures Referred By Contac t Referred To Contact Radiology Diagnoses Malignant neoplasm of pancreatic duct Procedures NM PET CT Skull Base to Mid-thigh Regino Carolina MD [facility] [place] [address] [facility] [place] [address] Referral ID Status Reason Start Date Expiration Date V isits Requested Visits Authorized [id number] Closed Specialty Service Requested 11/25/2019 05/27/2021 1 1 Encounter Details Date Type Department Care Team (Late st Contact Info) Description 12/05/2019 2:29 PM EDT - 12/05/2019 2:31 PM EDT Hospital Encounter [place] [phone] Regino Carolina MD [facility] [place] [address] Malignant neoplasm of pancreatic duct Discharge Disposition: [...] by mouth every other day. 10/25/2019 04/11/2020 adaspn-fudasbte-ktvddo e DR ([place]) 24,000-76,000 -120,000 unit Capsule, [...] 1:00 PM EDT Office Visit Hematology/Oncology at [address] [phone] Mary Nails APRN [address] [place] [address] DR MEDICAL ONCOLOGY [place], [place] [id number] 11/02/2023 1:30 PM EDT Infusion Hematology Oncology at [address] [phone] documented as of this encounter Procedures Procedure Name Priority Date/Time Associated Diagnosis Comments NM PET CT SKULL BASE TO MID-THIGH (LCSR) Routine 12/05/2019 3:55 PM EDT Malignant neoplasm of pancreatic duct documented in this encounter Results * NM PET CT Skull Base to Mid-thigh (12/05/2019 3:55 PM EDT) Anatomical Region Laterality Modality Positron Emissio n Tomography (PET) Impressions 12/06/2019 9:30 AM EDT 1. ??No abnormal activity or mass associated with the pancreas. Pancreatic ductal dilatation is unchanged. 2. ??There is no definite evidence of metastatic disease. Mildly hypermetabolic tree-in-bud opacities in the left upper lobe are likely inflammatory in origin. Thank you for letting us participate in the care of this patient. For questions regarding this report, please contact the number below. ? Narrative 12/06/2019 9:30 AM EDT EXAMINATION: NM PET CT SKULL BASE TO MID-THIGH ? CLINICAL HISTORY: Pancreatic cancer, staging Recently diagnosed main duct IPMN/cancer evaluate pancreatic duct for FDG uptake and stage for metastases TECHNIQUE: Following IV injection of 84-nuqgcm-5-deoxyglucose (FDG) a standard uptake of approximately 60 minutes, a noncontrast CT scan followed by a PET scan were acquired from the base of the skull to mid thighs. The noncontrast CT was used for anatomic localization and photon attenuation correction of the PET scan. Blood glucose level: 91 (mg/dL) FDG dose: 10.5 mCi COMPARISON: Abdomen CT performed at [facility] on 2019 FINDINGS: HEAD/NECK: Normal activity in all soft tissue regions of the neck and visualized lower head. CHEST: There are scattered, mildly FDG avid tree in bud opacities in the left upper lobe (image 57). Irregular soft tissue containing calcification is present in the outer aspect of the left breast (image 79). It is only mildly FDG avid. The ascending aorta is at the upper limits of normal in size measuring 3.9 cm in diameter. There has been a prior right-sided mastectomy. Scarring is noted at the apex of the right upper lobe. ABDOMEN/PELVIS: Normal activity in all soft tissue regions. In particular, no abnormal activity is present associated with the pancreas. Dilatation of the pancreatic duct is unchanged. There are scattered calcifications in the pancreatic parenchyma. No pancreatic mass is observed. SKELETON/EXTREMITIES: Mildly increased activity is associated with healing fractures of the anterior left fourth and fifth ribs. There is a healed fracture deformity of the right pubic bone. Sclerosis within the left humeral head raises a question of avascular necrosis. Procedure Note Guido Choudhary MD - 12/06/2019 EXAMINATION: NM PET CT SKULL BASE TO MID-THIGH CLINICAL HISTORY: Pancreatic cancer, staging Recently diagnosed main duct IPMN/cancer evaluate pancreatic duct for FDGuptake and stage for metastases TECHNIQUE: Following IV injection of 86-xgrqqn-4-deoxyglucose (FDG) astandard uptake of approximately 60 minutes, a noncontrast CT scan followed by aPET scan were acquired from the base of the skull to mid thighs. The noncontrast CTwas used for anatomic localization and photon attenuation correction of thePET scan. Blood glucose level: 91 (mg/dL) FDG dose: 10.5 mCi COMPARISON: Abdomen CT performed at [facility] on 2019 FINDINGS: HEAD/NECK: Normal activity in all soft tissue regions of the neck and visualizedlower head. CHEST: There are scattered, mildly FDG avid tree in bud opacities in the leftupper lobe (image 57). Irregular soft tissue containing calcification is present in the outeraspect of the left breast (image 79). It is only mildly FDG avid. The ascending aorta is at the upper limits of normal in size measuring 3.9cm in diameter. There has been a prior right-sided mastectomy. Scarring is notedat the apex of the right upper lobe. ABDOMEN/PELVIS: Normal activity in all soft tissue regions. In particular, no abnormalactivity is present associated with the pancreas. Dilatation of the pancreatic duct is unchanged. There are scattered calcifications in the pancreatic parenchyma. No pancreatic mass isobserved. SKELETON/EXTREMITIES: Mildly increased activity is associated with healing fractures of theanterior left fourth and fifth ribs. There is a healed fracture deformity of the right pubic bone. Sclerosiswithin the left humeral head raises a question of avascular necrosis. IMPRESSION 1. No abnormal activity or mass associated with the pancreas. Pancreaticductal dilatation is unchanged. 2. There is no definite evidence of metastatic disease. Mildlyhypermetabolic tree-in-bud opacities in the left upper lobe are likely inflammatory inorigin. Thank you for letting us participate in the care of this patient. Forquestions regarding this report, please contact the number below. Regino Carolina MD IMG PET ORDERABLES documented in this encounter Visit Diagnoses Diagnosis Malignant neoplasm of pancreatic duct documented in this encounter Care Teams Talent Program Manager Relationship Specialty Start Date End Date Zeny James APRN [address] [place] [address] PCP - General Family Medicine 09/23/19 documented as of this encounter
--- OUTSIDE RECORDS SUMMARY | 2023-11-02 02:35 | XMS_ITS | Encounter Summary ---
Author Organization [facility] Address [facility] [place] [address] Care Team Providers Care Bronzer Name Role Phone Zeny James APRN Primary Care Provider Encounter Details Date Type Department Care Team (Latest Contact Info) Description 12/05/2019 1:31 PM EDT - 12/05/2019 2:28 PM EDT Hospital Encounter [place] [address] China Ramirez MD [facility] DR DI[place] [address] Abnormal finding on breast imaging Discharge Disposition: Home Social History Tobacco Use [...] by mouth every other day. 10/25/2019 04/11/2020 phenhf-mgylicwy-jrbvtm e (Ryan) 24,000-76,000 -120,000 unit Capsule, Delayed Release(E.C.) Take 1-2 capsules by mouth 3 times daily (with meals). 250 capsule 3 11/25/2019 01/13/2020 CIS Free Text Med - Calcium 600 with Vitamin D2 02/11/2010 01/28/2020 CIS Free Text Med - Albuterol 1 Puff(s), Inh, PRN 02/11/2010 01/28/20 20 vitamin E 400 unit capsule 02/11/2010 03/31/2020 documented as of this encounter Progress Notes * Parmjit Osborn MD - 12/05/2019 1:36 PM EDT Pre-procedure note for needle breast biopsies performed in radiology. Procedure date: Today Procedure type: left breast stereotactic biopsy Allergies: Iodinated contrast media and House dust Medications: Current Outpatient Medications: ??? Wixela Inhub 500-50 mcg/dose Disk with Device, , Disp: , Rfl: ??? PravachoL 20 mg Tablet, , Disp: , Rfl: ??? omeprazole (PriLOSEC) 20 mg Capsule, Delayed Release(E.C.), , Disp: , Rfl: ??? lfcopz-rvniahgc-eoagcly DR Corrales) 24,000-76,000 -120,000 unit Capsule, Delayed Release(E.C.), Take 1-2 capsules by mouth 3 times daily (with meals)., Disp: 250 capsule, Rfl: 3 ??? cholecalciferol, Vitamin D3, 1,000 unit Capsule, Take 1,000 Units by mouth daily., Disp: , Rfl: ??? multivit,iron,minerals/lutein (CENTRUM SILVER ULTRA WOMEN'S ORAL), Take by mouth daily., Disp: , Rfl: ??? magnesium oxide 400 mg magnesium Capsule, Take by mouth., Disp: , Rfl: ??? fish oil-omega-3 fatty acids 1,000 mg Capsule, Take 2 g by mouth daily., Disp: , Rfl: ??? CIS Free Text Med - Calcium 600 with Vitamin D2, , Disp: , Rfl: ??? CIS Free Text Med - Albuterol, 1 Puff(s), Inh, PRN, Disp: , Rfl: ??? vitamin E 400 unit capsule, , Disp: , Rfl: Anticoagulation status: none stopped on: N/A Imaging reviewed and procedural plan approved by Dr. Parmjit Osborn MD documented in this encounter Plan of Treatment Upcoming Encounters Date Type Department Care Team (Late st Contact Info) Description 11/02/2023 1:00 PM EDT Office Visit Hematology/Oncology at [address] [phone] Mary Nails APRN [address] [place] [address] [place] [address] 11/02/2023 1:30 PM EDT Infusion Hematology Oncology at [address] [phone] documented as of this encounter Procedures Procedure Name Priority Date/Time Associated Diagnosis Comments MAMMO STEREOTACTIC BIOPSY LEFT Routine 12/05/2019 2:32 PM EDT Abnormal finding on breast imaging SPECIMEN TO PATHOLOGY Routine 12/05/2019 2:16 PM EDT SURGICAL PATHOLOGY REPORT Routine 12/05/2019 2:15 PM EDT documented in this encounter Results * Mammo Stereotactic Biopsy Left (12/05/2019 2:32 PM EDT) Anatomical Region Laterality Modality Breast N/A Mammography Impressions 12/06/2019 11:32 AM EDT Concordant malignant result RECOMMENDATION: Definitive management. I phoned these results and recommendation for surgical management to the patient on 12/06/2019 at 1130 hours. This patient indicated that she will not be seeking follow-up treatment for her left breast cancer since she is already dealing with pancreatic issue. She will contact us if she desires further treatment for her breast cancer. REVIEW PATH CONFERENCE?: No Preliminary report signed by: Parmjit Osborn at 12/06/2019 11:21 AM I have personally reviewed the image(s) and the resident's interpretation and agree with the findings, China Ramirez at 12/06/2019 11:32 AM Thank you for letting us participate in the care of this patient. For questions regarding this report, please contact the number below. ? Narrative 12/06/2019 11:32 AM EDT STEREOTACTIC GUIDED VACUUM ASSISTED BIOPSY OF THE LEFT BREAST CLINICAL HISTORY: Abnormal finding on breast imaging 0.9 cm Mass right breast 3:00 Radian 8 cm from the nipple Procedural details: Informed consent was obtained and a time out procedure was performed per protocol. The patient gave permission to proceed. Using sterile technique and local anesthetic (less than 20cc's of 1% lidocaine) a biopsy was performed using tomographic guidance. Multiple core biopsy specimens were obtained using a 9g vacuum assist device. 6 core biopsy specimens were obtained using a [employer] Eviva 9g device. Biopsy specimens were radiographed. ??The abnormality was present on the specimen digital radiograph. A [employer] Eviva cylinder marker clip was placed. Cranio-caudal and lateral digital mammography was performed to determine biopsy marker placement. ??The marker was shown to be at the biopsy site. COMPLICATIONS: None. PROCEDURAL ATTESTATION: Resident: Parmjit Osborn Attending: I performed the procedure with the resident observing. IMAGING DIFFERENTIAL DIAGNOSIS: Invasive carcinoma, focal fibrosis PATHOLOGIC DIAGNOSIS: Invasive lobular carcinoma China Ramirez MD IMG MAMMO ORDERABL ES * Specimen to Pathology (12/05/2019 2:16 PM EDT) AP Specimen 12/05/2019 2:16 PM EDT 12/05/2019 2:16 PM EDT Narrative [facility] - 12/05/2019 2:16 PM EDT Specimen requisition ordered. ??Separate Pathology report to follow China Ramirez MD PATHOLOGY/CYTOLOGY ORDERABLES Performing Organization Address City/State/[facility] Co de Phone Number [facility] [place] [address] * Surgical Pathology Report (12/05/2019 2:15 PM EDT) Pathologist [facility] Surgical Pathology Report [id number] ? Location: 3L The signing pathologist has (i) examined the relevant preparation(s) for the specimen(s) and (ii) rendered or confirmed the diagnosis(es). . ?Molecular Genetics RESULTS TEST: HER2 (ERBB2) FISH, Breast, METHOD: Fluorescence in situ hybridization (FISH) with chromosome 17 centromere (17p11.1-q11.1) probe and a locus specific probe for the HER2 gene locus (17q11.2- q12). SAMPLE ANALYZED: A2-6 RESULT: ?NEGATIVE FOR HER2/GREG AMPLIFICATION ? TOTAL # SIGNALS/TOTAL # NUCLEI COUNTED FOR HER2 PROBE = 117 ? TOTAL # SIGNALS/TOTAL # NUCLEI COUNTED FOR CEP-17 PROBE = 84 ? HER2 TO CEP-17 RATIO = 1.4 ?(NORMAL RANGE <2.0) ? TOTAL # NUCLEI COUNTED = 40 ? AVERAGE # HER2 signals/cell = 2.9 Interpretation: ??Paraffin-embedde d tissue sections were submitted for HER2 (ERBB2) gene amplification analysis by FISH. ??Direct analysis was performed using the Voice[employer]ysion Kit. ??Slide adequacy and signal enumeration were evaluated and satisfactory for both control and patient slides. ??A signal ratio derived from the HER2 probe and the CEP-17 centromere probe of ?2.0 is considered positive for HER2 gene amplification. The 2013 ASCO/CAP guideline recommendation for HER2 testing in breast cancer states that samples with a HER2 to CEP-17 ratio of less than 2.0 are non-amplified. Specimens with a HER2 to CEP-17 range of ?2.0 are considered amplified. This test is approved by the U.S. FDA for clinical diagnostic use. Reference: Nyla HACKETT, et al. Recommendations for human epidermal growth factor receptor 2 testing in breast cancer: [place] Society of Clinical Oncology/College of [place] Pathologists clinical practice guideline update. J Clin Oncol. 2013 Feb 15. Nyla HACKETT et al. Human Epidermal Growth Factor Receptor 2 Testing in Breast Cancer: [place] Society of Clinical Oncology/College of [place] [employer]ologists Clinical Practice Guideline Focused Update. Arch Pathol Lab Med. 2017September 13/J Clin Oncol. 2017September 13. Electronically signed by: ??Paty Servin MD Verified: ??12/10/2019 ?Pathologist Performed at: ??-[facility] Dept. of Pathology, [place], [place] ? Addendum ADDENDUM DISCUSSION Immunohistochemist ry Studies . ADDENDUM DISCUSSION Specimen: Left breast, core needle biopsy (A2) ER immunoreactivity: Positive (>90% cancer cells with immunostaining) Stain intensity: Strong OR immunoreactivity: Negative (<1% cancer cells with immunostaining) HER2 FISH: separate report to follow ? *Diagnostic gonsalez for hormone receptors (ASCO/CAP GUIDELINES, 2020): ?Negative immunoreactivity: <1% tumor cells with immunostaining ?Positive immunoreactivity: >=1% tumor cells with immunostaining ??Low Positive: 1-10% tumor cells with immunostaining* *There are limited data on the overall benefit of endocrine therapies for patients with low level (1-10%) ER expression, but they currently suggest possible benefit, so patients are considered eligible for endocrine treatment. There are data that suggest invasive cancers with these results are heterogenous in both behavior and biology and often have gene expression profiles more similar to ER-negative cancers. Immunohistochemica l assays were performed on paraffin-embedded tissue sections fixed in 10% neutral buffered formalin for 6-72 hours using the polymer system technique with appropriate controls. The assays were performed according to the electron microprobe operator ? 's instructions using Anti-ER (SP1) and Anti-OR (16) antibodies. These tests were developed and their performance characteristics determined by [facility]. They may not have been cleared or approved by the US Food and Drug Administration. The FDA does not require such tests to go through premarket FDA review. These tests are used for clinical purposes and should not be regarded as investigational or for research. This laboratory is certified under the Clinical Laboratory Improvement Amendments (CLIA) as qualified to perform high complexity clinical laboratory testing. Electronically signed by: ??Merritt Dolye MD Verified: ??12/06/2019 ?Pathologist Performed at: ??-[facility] Dept. of Pathology, [place], [place] ?Surgical Pathology DIAGNOSIS Needle biopsies: ?Left breast Diagnosis: ?- Invasive lobular carcinoma. ? Intermediate grade, modified SBR score = 6 ?- Lobular carcinoma in-situ and atypical lobular ?hyperplasia Microcalcification s: ??N/A Electronically signed by: ??Merritt Doyle MD Verified: ??12/06/2019 ?Pathologist Performed at: ??-[facility] Dept. of Pathology, [place], [place] DISCUSSION Studies for ER, OR, and HER2 have been ordered; results will be issued in an addendum. SPECIMEN(S) SUBMITTED A - Left breast stereo bx 9g, biopsy (Multiple) CLINICAL INFORMATION Left breast mass. . SPECIMEN PROCESSING A - Labeled/Fixative: Left breast stereo BX 9G, formalin. Quantity/Size: Five, ranging from 2.0-3.5 x 0.3 cm Tissue Description: Yellow to pelletier-pink fibrofatty needle core biopsies, admixed with a 3.0 x 1.5 x 0.5 cm aggregate of irregular, yellow fatty tissue fragments. Sections/Processin g: Entirely submitted in 3 cassettes labeled A1-A3. Ischemic Time: 1 minute ??shb [facility] 12/05/2019 2:15 PM EDT China Ramirez MD PATHOLOGY/CYTOLOGY ORDERABLES [facility] [place] [address] documented in this encounter Visit Diagnoses Diagnosis Abnormal finding on breast imaging Other (abnormal) findings on radiological examination of breast documented in this encounter Administered Medications Inactive Administered Medications - up to 3 most recent administrations Medication Order MAR Action Action Date Dose Rate Site lidocaine (XYLOCAINE) 10 mg/mL (1 %) injection 20 mg 20 mg, Intradermal, ONCE, 1 dose, On Pamella 12/05/19 at 1445, Routine Given 12/05/2019 2:10 PM EDT 20 mg documented in this encounter Care Teams Bronzer Relationship Specialty Start Date End Date Zeny James APRN [address] [place] [address] [address] [place] [address] PCP - General Family Medicine 09/23/19 documented as of this encounter
--- OUTSIDE RECORDS SUMMARY | 2023-11-02 02:35 | XMS_ITS | Encounter Summary ---
Author Organization [facility] [place] [address] Care Team Providers Care Formula Bottler Name Role Phone Zeny James APRN Primary Care Provider Reason for Visit * Diagnostic Test (Routine) - Closed Specialty Diagnoses / Procedures Referred By Nir potts Referred To Contact Radiology Diagnoses Malignant neoplasm of pancreatic duct Procedures NM PET CT Skull Base to Mid-thigh Regino Carolina MD [facility] [place] [address] [place] [address] Referral ID Status Reason Start Date Expiration Date V isits Requested Visits Authorized [id number] Closed Specialty Service Requested 11/25/2019 05/27/2021 1 1 Encounter Details Date Type Department Care Team (Late st Contact Info) Description 12/05/2019 2:32 PM EDT - 12/05/2019 11:59 PM EDT Hospital En[place] [address] Regino Carolina MD [facility] [place] [address] Discharge Disposition: Home Social History Tobacco Use [...] by mouth every other day. 10/25/2019 04/11/2020 wjfarr-dzkojlfu-ufeduc e DR (Creon) 24,000-76,000 -120,000 unit Capsule, [...] 1:00 PM EDT Office Visit Hematology/Oncology at [address] [phone] Mary Nails APRN [address] [place] [address] [place] [address] 11/02/2023 1:30 PM EDT Infusion Hematology Oncology at [address] [phone] documented as of this encounter Procedures Procedure Name Priority Date/Time Associated Diagnosis Comments NM PET CT SKULL BASE TO MID-THIGH ([facility]) Routine 12/05/2019 3:55 PM EDT Malignant neoplasm of pancreatic duct POCT GLUCOSE Routine 12/05/2019 2:35 PM EDT documented in this encounter Results * POCT Glucose (12/05/2019 2:35 PM EDT) POC Glucose 91 65 - 199 mg/dL [facility] Comment: Supplemental ranges: <140 mg/dL before meals <180 mg/dL all other times of the day Blood specimen (specimen) 12/05/2019 2:35 PM EDT 12/05/2019 2:35 PM EDT Regino Carolina MD POINT OF CARE TEST ORDERABLES Performing Organization Address City/State/[facility] Co de Phone Number [facility] [place] [address] documented in this encounter Visit Diagnoses Not on filedocumented in this encounter Administered Medications Inactive Administered Medications - up to 3 most recent administrations Medication Order MAR Action Action Date Dose Rate Site fludeoxyglucose (F-18) FDG injection 0-20 mCi 0-20 mCi, Intravenous, ONCE PRN, 1 dose, Starting on Pamella 12/05/19 at 1444, Until Pamella 12/05/19 at 1440, Per Protocol, Radiology Contrast, Routine Given 12/05/2019 2:40 PM EDT 10.5 mCi Left Arm documented in this encounter Care Teams Formula Bottler Relationship Specialty Start Date End Date Zeny James APRN [address] [place] [address] PCP - General Family Medicine 09/23/19 documented as of this encounter
--- OUTSIDE RECORDS SUMMARY | 2023-11-02 02:35 | XMS_ITS | Encounter Summary ---
Author Organization [facility] Address [facility] [place] [address] Care Team Providers Care Transportation Department Head Name Role Phone Villa Krause MD Primary Care Provider [phone] Reason for Visit * Reason Comments Skin Lesion Encounter Details Date Type Department Care Team (Late st Contact Info) Description 01/07/2014 9:45 AM EDT Follow-Up Dermatology at [place] [address] [place] [address] Estela Velasquez MD [facility] [place] [address] Dermatitis (Primary Dx); Seborrheic dermatitis Discharge Disposition: Home Social History Tobacco Use Types Packs/Day Years Used Date Smoking Tobacco: Never Sex and Gender Information Value Date Recorded Sex Assigned at Not on file Gender Identity Not on file Sexual Orientation Not on file documented as of this encounter Progress Notes * Fabiola Teran LPN - 01/07/2014 9:43 AM EDT DERMATOLOGY ESTABLISHED PATIENT CLINIC NOTE Date of service: 01/07/2014 Linda Serrano : 1945 Provider: Estela Velasquez MD PROBLEM: Redness of the hairline SKIN HISTORY: [facility] back January 2010 Lentigines HPI Ms. Serrano is a 68 y.o. female here with red scaly area along the hairline and now down on the eyelids since August.Her Pcp had her use baby shampoo and mineral oil which did not help,then had her use baby shampoo and aquaphor which also did not help.She tried some Ketoconazole shampoo with some improvement.She also has Fluocinolone alexey she tried a few times. ADR: House dust MEDS: Current Outpatient Prescriptions [...] complaints EXAM General: NAD, pleasant, cooperative Skin: Focused exam of the face Significant skin findings: A. Fine scale along the hairline and upper eyelids ASSESSMENT/PLAN: A. Seborrheic Dermatitis RX:Ketoconazole Shampoo alternate with Free And Clear Shampoo. RX:Fluocinonide alexey as needed to the scalp B. RX:Desonide to the upper forehead and eyelids once daily for a week C. Use Aquaphor if needed or Cetaphil Cream D. RTC prn. I am documenting this encounter acting as the scribe for and in the presence of Dr. Velasquez. FABIOLA COLBERTJOÃO FILLING MIXER I performed the above scribed service and agree with the accuracy of the documentation in this encounter. Estela Velasquez MD Section of Dermatology [facility] documented in this encounter Plan of Treatment Upcoming Encounters Date Type Department Care Team (Late st Contact Info) Description 11/02/2023 1:00 PM EDT Office Visit Hematology/Oncology at [address] [phone] Mary Nails APRN [address] [place] [address] MEDICAL ONCOLOGY [place], [place] [id number] 11/02/2023 1:30 PM EDT Infusion Hematology Oncology at [address] [phone] documented as of this encounter Visit Diagnoses Diagnosis Dermatitis- Primary Contact dermatitis and other eczema, due to unspecified cause Seborrheic dermatitis Seborrheic dermatitis, unspecified documented in this encounter Care Teams Transportation Department Head Relationship Specialty Start Date End Date Villa Krause MD [address] [place] [address] PCP - General 12/25/13 10/10/16 documented as of this encounter
--- OUTSIDE RECORDS SUMMARY | 2023-11-02 02:35 | XMS_ITS | Encounter Summary ---
Author Organization [facility] Address [facility] [place] [address] Care Team Providers Care Rf Engineer Name Role Phone Zeny James APRN Primary Care Provider Encounter Details Date Type Department Care Team (Latest Contact Info) Description 12/05/2019 12:33 PM EDT - 12/05/2019 1:30 PM EDT Hospital Encounter [place] [address] Rob Gleason MD [facility] [place] [address] Abnormal finding on breast imaging Discharge Disposition: [...] by mouth every other day. 10/25/2019 04/11/2020 agrkju-mzguflax-zymarh e DR (Creon) 24,000-76,000 -120,000 unit Capsule, [...] 1:00 PM EDT Office Visit Hematology/Oncology at [address] [phone] Mary Nails C.O.D. BILLER [address] [place] [address] DR MEDICAL ONCOLOGY [place], [place] [id number] 11/02/2023 1:30 PM EDT Infusion Hematology Oncology at [address] [phone] documented as of this encounter Procedures Procedure Name Priority Date/Time Associated Diagnosis Comments MAMMO CALL BACK DIAGNOSTIC SPEEDY WITHOUT CAD LEFT Routine 12/05/2019 1:07 PM EDT Abnormal finding on breast imaging documented in this encounter Results * Mammo Call Back Diagnostic Speedy Without Cad Left (12/05/2019 1:07 PM EDT) Anatomical Region Laterality Modality Breast Left Mammography Impressions 12/05/2019 3:38 PM EDT Suspicious 0.9 cm irregular obscured mass in the left upper outer quadrant, best seen by mammography. RECOMMENDATION: Stereotactic biopsy of subcentimeter left upper outer quadrant mass is recommended for tissue analysis. BI-RADS Category 4: Suspicious Finding - Biopsy Should Be Considered I have personally reviewed the image(s) and the resident's interpretation and agree with the findings, China Ramirez at 12/05/2019 3:38 PM Thank you for letting us participate in the care of this patient. For questions regarding this report, please contact the number below. ? Narrative 12/05/2019 3:38 PM EDT EXAMINATION: US ??BREAST LIMITED LEFT, MAMMO CALL BACK DIAGNOSTIC SPEEDY WITHOUT CAD LEFT CLINICAL HISTORY: abnormal mammo ; 1 cm focal asymmetry of the outer left breast 3:00 radian, 7 cm from the nipple. TECHNIQUE: Left-sided spot compression views in the MLO and CC projections as well as true lateral view with and without 3-D imaging. COMPARISON: Screening mammography 02/04/2020. FINDINGS: Breast density: The breasts are heterogeneously dense, which may obscure small masses Left breast diagnostic mammography: The 0.9 cm irregular, obscured mass within the outer left breast, ??8cm from the nipple does not efface on spot compression views and is thus suspicious for underlying malignancy. Targeted left breast ultrasound: A poorly visualized mixed echogenicity antiparallel microlobulated mass measuring up to 0.7 cm is present in the left breast 2:00 radian, 6 cm from the nipple. Rob Gleason MD IMG MAMMO ORDERABLES documented in this encounter Visit Diagnoses Diagnosis Abnormal finding on breast imaging Other (abnormal) findings on radiological examination of breast documented in this encounter Care Teams Rf Engineer Relationship Specialty Start Date End Date Zeny James APRN [address] [place] [address] 1 [place] [address] PCP - General Family Medicine 09/23/19 documented as of this encounter
--- OUTSIDE RECORDS SUMMARY | 2023-11-02 02:35 | XMS_ITS | Encounter Summary ---
Author Organization [facility] Address [facility] [place] [address] Care Team Providers Care Switch Inspector Name Role Phone Zeny James APRN Primary Care Provider Encounter Details Date Type Department Care Team (Latest Contact Info) Description 12/05/2019 12:33 PM EDT - 12/05/2019 1:30 PM EDT Hospital En[place] [address] Rob Gleason MD [facility] [place] [address] Abnormal finding on breast imaging Discharge Disposition: [...] by mouth every other day. 10/25/2019 04/11/2020 csoojp-xzgtundi-ackkre e DR (Creon) 24,000-76,000 -120,000 unit Capsule, [...] PM EDT Office Visit Hematology/Oncology at [address] [phone] Mary Nails COMPUTATIONAL GENETICIST [address] [place] [address] DR MEDICAL ONCOLOGY [place], [place] [id number] 11/02/2023 1:30 PM EDT Infusion Hematology Oncology at [address] [phone] documented as of this encounter Procedures Procedure Name Priority Date/Time Associated Diagnosis Comments MAMMO BREAST US LIMITED LEFT Routine 12/05/2019 1:35 PM EDT Abnormal finding on breast imaging documented in this encounter Results * US Breast Limited Left (12/05/2019 1:35 PM EDT) Anatomical Region Laterality Modality Breast [...] the number below. ? Electronically signed by: China Ramirez [facility] ([phone]), at 12/05/2019 3:38 PM Narrative 12/05/2019 3:38 PM EDT EXAMINATION: US ??BREAST LIMITED LEFT, MAMMO CALL BACK DIAGNOSTIC KINJAL WITHOUT CAD LEFT CLINICAL HISTORY: abnormal mammo [...] breast documented in this encounter Care Teams Switch Inspector Relationship Specialty Start Date End Date Delaney Jameside JESUS ALBERTO [address] [place] [address] [address] [place] [address] PCP - General Family Medicine 09/23/19 documented as of this encounter
--- OUTSIDE RECORDS SUMMARY | 2023-11-02 02:35 | XMS_ITS | Encounter Summary ---
Author Organization [facility] [place] [address] Care Team Providers Care Mixed Livestock Farm Worker Name Role Phone Zeny James APRN Primary Care Provider Reason for Referral * Diagnostic Test (Routine) - Closed Specialty Diagnoses / Procedures Referred By Contac t Referred To Contact Radiology Diagnoses Malignant neoplasm of pancreatic duct Procedures NM PET CT Skull Base to Mid-thigh Regino Carolina MD [facility] [place] [address] [place] [address] Referral ID Status Reason Start Date Expiration Date V isits Requested Visits Authorized [id number] Closed Specialty Service Requested 11/25/2019 05/27/2021 1 1 Reason for Visit * Consultation (Routine) - Closed Specialty Diagnoses / Procedures Referred By Contac t Referred To Contact General Surgery Diagnoses Pancreatic cyst Ralf Urrutia MD [facility] [place] [address] Regino Carolina MD [facility] [address] [place] [address] Referral ID Status Reason Start Date Expiration Date V isits Requested Visits Authorized [id number] Closed Consult, Test & Treat 11/18/2019 11/17/2020 1 1 Encounter Details Date Type Department Care Team (Late st Contact Info) Description 11/25/2019 8:00 AM EDT Office Visit General Surgery at [facility] [place] [phone] Regino Carolina MD [facility] [place] [address] Malignant neoplasm of pancreatic duct Social History Tobacco Use Types Packs/Day Years Used Date Smoking Tobacco: Never Smokeless Tobacco: Never Sex and Gender Information Value Date Recorded Sex Assigned at Not on file Gender Identity Not on file Sexual Orientation Not on file documented as of this encounter Last Filed Vital Signs Vital Sign Reading Time Taken Comments Blood Pressure 155/76 11/25/2019 7:46 AM EDT Pulse 72 11/25/2019 7:46 AM EDT Temperature 36.3 ??C (97.4 ??F) 11/25/2019 7:46 AM ED T Respiratory Rate 16 11/25/2019 7:46 AM EDT Oxygen Saturation 100% 11/25/2019 7:46 AM EDT Inhaled Oxygen Concentration - - Weight 55 kg (121 lb 3.2 oz) 11/25/2019 7:46 AM EDT Height 157.5 cm (5' 2) 11/25/2019 7:46 AM EDT Body Mass Index 22.17 11/25/2019 7:46 AM EDT documented in this encounter Progress Notes * Regino Carolina MD - 11/25/2019 8:00 AM EDTSummary: Surgical Oncology Consultation Note Date: 11/25/2019 Primary physician: Zeny James APRN Referring physician: Migue Urrutia MD Reason for evaluation: 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 History of the present illness: Ms. Serrano is a 74 year woman from [place], [place]. She presented to [facility] ED on 2019 with epigastric [...] IPMN; ERCP deferred; fluid sent for analysis. Recommendation: ?- Discharge patient to home. ?- Resume previous diet. ?- Await pathology results. ?- Discuss surgical referral pending path. 11/15/2019 EUS/FNA of pancreatic duct/cyst fluid cytopathology per Acc# [id number] showed neoplastic Cells Present. Abundant macrophages, mixed leukocytes present and a single group of bland-appearing columnar cells. ??Cell block was examined. Note: The fluid CEA level is consistent with neoplastic process. Today: 11/25/2019 surgical oncology consult. Maricruz was seen for surgery consultation. She was by herself. She described the episode that brought her to the ED at [facility] as the first time she is ever had any significant pain and she said it was pretty bad but I generally have this uncomfortable mass almost like an ache or a jab. It is not related to eating. She rated it as a 2-out of 10 and it seemsto just resolve on its own. No relation to time of day or positional changes. She has no prior history of pancreatitis. She does not have diabetes. Her normal weight is 125 pounds and she is lost about 10 pounds over the past several months and currently weighs 115 pounds. She describes having no interest in food and some early satiety symptoms but no nausea. She has 1 bowel movement a day but itis soft and sometimes diarrhea like. Past Medical History: 1. History of breast cancer status post modified radical mastectomy and chemoradiation in 2000. 2. Hypertension 3. Osteoporosis Past Surgical History: 1. 02/06/2001 right modified radical mastectomy for breast cancer 2. History of tonsillectomy Review of systems: A comprehensive ROS questionnaire (scanned into [facility]) was completed by the patient - pertinent surgical related findings are summarized below. All other systems on the questionnaire were reviewed and were negative. She has never had any heart attack or chest pain symptoms. She is very active with housework, yard work and walking every day with her friends. 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 Her 7 years ago and she currently lives alone. Her stepdaughter Sienna lives nearby. She has 3 sons who live in [place], [place] in [place] and 6 stepchildren who she is very [...] cancer. Medications: 1. Tylenol as needed 2. Slr-dzd-pifwsmrjb sulfate inhaler 2 puffs twice daily 3. Aspirin 81 mg daily 4. Calcium carbonate vitamin D3 600/15 100/800 unit tablet-1 tablet daily. 5. Cholecalciferol 25 mcg (1000 units) daily 6. Fluticasone 500 mcg Solu-Medrol 50 mcg inhaler twice daily 7. Flonase 2 sprays intranasally as needed 8. Magnesium oxide 4 mg daily 9. Multivitamin Centrum Silver women 10. [place]-3 1000 mg fish oil capsule daily 11. Pravastatin 20 mg daily 12. Vitamin B complex 1 tablet daily 13. Vitamin E 400 units daily Allergies: Allergies Allergen Reactions ??? Iodinated Contrast Media Shortness Of Breath ??? House Dust Physical Examination: Vital signs: Blood pressure 155/76, pulse 72, temperature 36.3 ??C (97.4 ??F), resp. rate 16, height 157.5 cm (5' 2), weight 55 kg (121 lb 3.2 oz), SpO2 100 %. General: She is actually [...] bilaterally. DP palpable bilaterally. Assessment and plans: 60 minutes of this 65-minute surgical oncology consultation was spent in direct xlht-is-jmgz discussion with Maricruz just discussing the diagnosis of main duct intraductal papillary mucinous neoplasm (IPMN) in the context of her presentation with epigastric abdominal pain. She actually did not have pancreatitis based on normal lipase levels at the time of her admission through the ED at [facility] though she clearly has a radiographic diagnosis of a main duct IPMN with a massively dilated main pancreatic duct from the tail all the way to the head of the pancreas. No biliary ductal dilation and no symptoms of jaundice. She has lost about 10 pounds and does have what sounds like some symptoms of pancreatic exocrine insufficiency though she is not a diabetic. We reviewed the CT images as well as Dr. Urrutia's EUS report. The cytopathology showed no invasive or high-grade dysplasia epithelial cells though cytologically the fluid was mucinous consistent with IPMN. There were no w orrisome features noted on Dr. Urrutia's EUS report and I reviewed the MRI as well as the CT images and I cannot see any evidence of mural wall thickening or mural nodularity so at this point it is difficult to make a definitive decision with regard to partial pancreatectomy as the entire pancreatic duct is dilated. We discussed how she may in fact require a total pancreatectomy but at this point I would like to get more information obtained via a PET scan and we can hopefully establish whether there are any areas of FDG avidity within the pancreatic duct to help guide partial pancreatectomy and perform pancreatic parenchyma sparing surgery-avoid a total pancreatectomy. We discussed how thesemain duct IPMN cysts have a very high-50 to 60% chance of harboring invasive carcinoma cells at the time of surgical resection which is why we recommend surgery especially in patients who are symptomatic. I ordered a CA-19-9 level as well as the PET scan and I would like to see her back in the clinic shortly after the PET scan images are obtained and the report is available to review so that we can review them together and make definitive plans with regard to surgery versus a close surveillancestrategy. She had ample opportunity to have all her questions answered and could appreciate the complexities involved in this disease process. Once the CA-19-9 blood level is back today I will give her a call tonight to let her know the results. Jennifer Carolina MD 11/25/2019 9:02 AM This note was created using [employer] voice recognition software. documented in this encounter Miscellaneous Notes * Addendum Note - Gianna Butts - 11/25/2019 8:00 AM EDTAddended by: GIANNA BUTTS on: 11/25/2019 09:16 AM Modules accepted: Orders documented in this encounter Plan of Treatment Upcoming Encounters Date Type Department Care Team (Late st Contact Info) Description 11/02/2023 1:00 PM EDT Office Visit Hematology/Oncology at [address] [phone] Mary Nails [address] [facility] [place], [place] [id number] 11/02/2023 1:30 PM EDT Infusion Hematology Oncology at [address] [phone] documented as of this encounter Procedures Procedure Name Priority Date/Time Associated Diagnosis Comments HC CARBOHYDRATE ANTIGEN 19-9 Routine 11/25/2019 9:22 AM EDT Malignant neoplasm of pancreatic duct documented [...] the number below. ? Electronically signed by: MARY GRACE Berg [facility] ([phone]), at 12/06/2019 9:30 AM Narrative 12/06/2019 9:30 AM EDT EXAMINATION: NM PET CT SKULL BASE TO MID-THIGH ? CLINICAL HISTORY: Pancreatic cancer, staging Recently diagnosed main duct IPMN/cancer evaluate pancreatic duct for FDG uptake and stage for metastases TECHNIQUE: Following IV injection of 22-xglqkz-5-deoxyglucose (FDG) a standard uptake of approximately 60 minutes, a noncontrast CT scan followed by a PET scan were acquired from the base of the skull to mid thighs. The noncontrast CT was used for anatomic localization and photon attenuation correction of the PET scan. Blood glucose level: 91 (mg/dL) FDG dose: 10.5 mCi COMPARISON: Abdomen CT performed at [facility] on 2019 FINDINGS: HEAD/NECK: Normal activity in [...] for metastases TECHNIQUE: Following IV injection of 88-ydpafv-7-deoxyglucose (FDG) astandard uptake of approximately 60 minutes, a noncontrast CT scan followed by aPET scan were acquired from the base of the skull to mid thighs. The noncontrast CTwas used for anatomic localization and photon attenuation correction of thePET scan. Blood glucose level: 91 (mg/dL) FDG dose: 10.5 mCi COMPARISON: Abdomen CT performed at [facility] on 2019 FINDINGS: HEAD/NECK: Normal activity in [...] number below. Electronically signed by: Guido Choudhary [facility]([phone]), at 12/06/2019 9:30 AM Regino Carolina MD IM PET ORDERABLES * (ABNORMAL) Carbohydrate Antigen 19-9 (11/25/2019 9:22 AM EDT) CA 19-9 255.0(H) <=35.0 u/ml [facility] Blood specimen (specimen) 11/25/2019 9:22 AM EDT 11/25/2019 9:25 AM EDT Narrative Resulting Agency Comment Spec In Lab Regino Carolina MD CHEMISTRY ORDERABL ES Performing Organization Address City/State/[facility] Co de Phone Number [facility] [place] [address] documented in this encounter Visit Diagnoses Diagnosis Malignant neoplasm of pancreatic duct Malignant neoplasm of pancreatic duct documented in this encounter Care Teams Mixed Livestock Farm Worker Relationship Specialty Start Date End Date Zeny James APRN [address] [place] [address] PCP - General Family Medicine 09/23/19 documented as of this encounter
--- OUTSIDE RECORDS SUMMARY | 2023-11-02 02:35 | XMS_ITS | Encounter Summary ---
Author Organization [facility] Address [facility] [place] [address] Care Team Providers Care Publicity Person Name Role Phone Maria Esther Street MD Primary Care Provider [phone] Encounter Details Date Type Department Care Team (Latest Contact Info) Description 11/15/2018 12:06 PM EDT - 11/15/2018 11:59 PM EDT Hospital Encounter Mammography/[place] [address] MD [address] [place] [phone] Screening breast examination Discharge Disposition: Home Social History Tobacco Use Types Packs/Day Years Used Date Smoking Tobacco: Never Smokeless Tobacco: Never Sex and Gender Information Value Date Recorded Sex Assigned at Not on file Gender Identity Not on file Sexual Orientation Not on file documented as of this encounter Medications at Time of Discharge Medication Sig Dispensed Refills Start Date End Date cholecalciferol, Vitamin D3, 1,000 unit Capsule Take 4,000 Units by mouth daily. multivit,iron,minerals /lutein (CENTRUM SILVER ULTRA WOMEN'S ORAL) Take 1 tablet by mouth daily. magnesium oxide 400 mg magnesium Capsule Take 1 capsule by mouth daily. fish oil-omega-3 fatty acids 1,000 mg Capsule Take 1 g by mouth daily. melatonin 5 mg Tablet Take by mouth. 10/17 ketoconazole (NIZORAL) 2 % ShampooIndications:Oleg orrheic dermatitis To the scalp alternating with Free and Clear Shampoo 120 mL 2 10/11/2016 11/25/2019 desonide (DESOWEN) 0.05 % CreamIndications:[place]anson titis,Seborrheic dermatitis Once daily to the forehead [...] PM EDT Office Visit Hematology/Oncology at [address] [phone] Mary Nails APRN [address] [place] [address] DR MEDICAL ONCOLOGY [place], [place] [phone] 11/02/2023 1:30 PM EDT Infusion Hematology Oncology at [address] [phone] documented as of this encounter Procedures Procedure Name Priority Date/Time Associated Diagnosis Comments MAMMO SCREENING CAD AND SPEEDY LEFT Routine 11/15/2018 12:47 PM EDT Screening breast examination documented in this encounter Results * Mammo Screening Cad and Speedy Left (11/15/2018 12:47 PM EDT) Anatomical Region Laterality Modality Breast Left Mammography Narrative 11/15/2018 1:43 PM EDT EXAMINATION: Unilateral left breast mammogram CLINICAL HISTORY: Personal history of breast cancer. Status post right mastectomy. Technique: CC and MLO views were obtained of the left breast using standard 2-D mammography as well as 3-D tomosynthesis. Computer aided detection was used. Comparison: This is compared with prior images. Findings: The breast is heterogeneously dense, which may obscure small masses. There are no suspicious microcalcifications, masses, or areas of distortion. The pattern is stable. Conclusion: No mammographic evidence of malignancy. Recommendation: Routine screening. BI-RADS Category 1: Negative * ??Medical organizations agree that annual screening mammography beginning at age 40 saves the most lives. * ??The risks of screening are negligible compared to dying from breast cancer or suffering from more aggressive treatment required when detected at a later stage. * ??No woman is at low risk for breast cancer. * ??Some women, because of their family history, a genetic tendency, or certain other factors, should be screened with breast MRI along with mammograms. (The number of women who fall into this category is very small). The patient and health care provider should discuss the patient history and decide if earlier screening and breast MRI are appropriate. * ??Screening should continue as long as a woman is in good health and is expected to live 10 years or longer. * ??Screening mammography may not detect 10-15% of breast cancers. * ??Women should report any breast changes to a health care provider right away. Thank you for letting us participate in the care of this patient. For questions regarding this report, please contact the number below. ? Maria Esther Street MD IMG MAMMO ORDERABLE S documented in this encounter Visit Diagnoses Diagnosis Screening breast examination (Not by Mammogram) Other screening breast examination documented in this encounter Care Teams Publicity Person Relationship Specialty Start Date End Date Maria Esther Street MD [address] [place] [address] [place] [phone] PCP - General Family Medicine 10/11/16 09/22/19 documented as of this encounter
--- OUTSIDE RECORDS SUMMARY | 2023-11-02 02:35 | XMS_ITS | Encounter Summary ---
Author Organization [facility] Address [facility] [place] [address] Care Team Providers Care Assembly Line Brazer Name Role Phone Villa Krause MD Primary Care Provider [phone] Encounter Details Date Type Department Care Team (Latest Contact Info) Description 01/07/2014 11:39 AM EDT - 01/07/2014 4:05 PM EDT Hospital [place] [address] Sangeetha Bangura MD [facility] DR GASTRO[place] [address] Izzy Johnson MD [facility] [place] [address] Discharge Disposition: Home Social History Tobacco Use Types Packs/Day Years Used Date Smoking Tobacco: Never Sex and Gender Information Value Date Recorded Sex Assigned at Not on file Gender Identity Not on file Sexual Orientation Not on file documented as of this encounter Last Filed Vital Signs Vital Sign Reading Time Taken Comments Blood Pressure 122/47 01/07/2014 1:40 PM EDT Pulse 74 01/07/2014 1:40 PM EDT Temperature 36.6 ??C (97.9 ??F) 01/07/2014 11:56 AM E DT Respiratory Rate 14 01/07/2014 1:40 PM EDT Oxygen Saturation 95% 01/07/2014 1:40 PM EDT Inhaled Oxygen Concentration - - Weight - - Height - - Body Mass Index - - documented in this encounter Discharge Instructions * Discharge Instructions* Yanely Donnelly RN - 01/07/2014 1:41 PM EDT Colonoscopy What to expect after the procedure You may feel a little more gassy or bloated than usual. This is normal. You should expect the return of normal bowel function in the 2 to 3 days. Activity Because of the sedation that you received your judgement and reaction time are effected ?? Go home and rest quietly for the remainder of the day. You may resume your normal activities tomorrow. ?? Change from one position to the next slowly. You may lose your balance unexpectedly ?? Be careful on stairs, as you may be unsteady on your feet FOR THE NEXT 24 HRS ?? DO NOT DRIVE OR OPERATE ANY MACHINERY ?? DO NOT DRINK ALCOHOLIC BEVERAGES ?? DO NOT SIGN LEGAL DOCUMENTS ?? If you are a smoker: DO NOT SMOKE WHILE YOU ARE ALONE Diet ?? Start by eating small portions of foods that ordinarily will not upset your stomach . Avoid gas producing foods for the next few days ?? Be gentle with what you choose to start with ?? Drink plenty of fluids ( unless your doctor has told you not to). IV SITE-- slight redness, or tenderness is normal. You can use warm compresses if you become concerned. If the tenderness +/or redness increases or foul drainage and a red streak occurs, please contact your PCP immediately When shoud you call for help? Call 911 anytime you think you may need emergency care. For example If you pass out ( loss of consciousness) If you pass maroon or bloody stools If you have severe belly pain Call your doctor now or seek immediate medical care If your stools are black and tarlike If your stools have streaks of blood, but you did not have a biopsy or any polyps removed If you have belly pain, or your belly is swollen and firm If you vomit If you have a fever If you are very dizzy Watch closely for changes in your health, and be sure to contact your doctor if you have any problems Your doctor will let you know when you will need your next colonoscopy. The results of your test and your risk for colorectal cancer will help your doctor decide how often you need to be checked. Monday-Monday Clinic [phone] 8a-5p Same Day Endo [phone] 7a-8p Otherwise contact [phone] and ask to speak to the deputy felony clerk lead applications developer Follow up care is a gonsalez part of your treatment and safety. Be sure to make and go to all appointments, and call your doctor if you are having problems. Discharge instructions reviewed with patient who expresses understanding documented in this encounter Medications at Time of Discharge Medication Sig Dispensed Refills Start Date End Date desonide (DESOWEN) 0.05 % CreamIndications:[place] titis,Seborrheic dermatitis Once daily to the forehead [...] 02/11/2010 10/08/2015 documented as of this encounter H&P Notes * Izzy Johnson MD - 01/07/2014 12:35 PM EDT Procedure: Colonoscopy Indication: average risk screen Problem List: Patient Active Problem List Diagnosis Code ??? CIS - Entered not Verified T999.0 ??? CIS - Healthcare Maintenance T999.0 ??? CIS - Hypertension T999.0 ??? CIS - Myalgias T999.0 ??? CIS - R breast cancer T999.0 ??? Seborrheic keratosis 702.19 ??? Multiple pigmented nevi 216.9 ??? Solar lentigo 709.09 ??? Nevus 216.9 ??? SK (seborrheic keratosis) 702.19 EXAM: HEENT: Airway examined, oropharynx clear LUNGS: Clear to auscultation HEART: Regular rate and rhythm, normal S1, S2 ABDOMEN: Normal bowel sounds, soft, non tender, non distended, A/P 68 y.o. female here for avg risk screening colonoscopy. Proceed with the planned endoscopic procedure. Risks and benefits of the procedure explained to the patient. Consent signed. documented in this encounter Miscellaneous Notes * Op Note - Izzy Johnson MD - 01/08/2014 7:35 AM EDT [facility] [place] Patient Name: Linda Serrano : [id number] MR#: [id number] Case Date: 01/07/2014 Surgeon: Surgeon(s) and Role: * Izzy Johnson MD - Primary Preoperative diagnosis: Surv 10 yr 12/24/03 Postoperative diagnosis: * No post-op diagnosis entered * Procedure(s): COLONOSCOPY, DIAGNOSTIC See Provation procedure note. * Miscellaneous - Provider, Scanning - 01/07/2014 9:36 PM EDT * Miscellaneous - Provider, Scanning - 01/07/2014 2:47 PM EDT documented in this encounter Plan of Treatment Upcoming Encounters Date Type Department Care Team (Late st Contact Info) Description 11/02/2023 1:00 PM EDT Office Visit Hematology/Oncology at [address] [phone] Mary Nails APRN [address] [place] [address] [place] [address] 11/02/2023 1:30 PM EDT Infusion Hematology Oncology at [address] [phone] documented as of this encounter Procedures Procedure Name Priority Date/Time Associated Diagnosis Comments COLONOSCOPY, DIAGNOSTIC (WRVU 3.26) 01/07/2014 12:56 PM EDT Surv 10 yr 12/24/03 COLONOSCOPY Routine 01/07/2014 12:22 PM EDT documented in this encounter Results * COLONOSCOPY (01/07/2014 12:22 PM EDT) COLONOSCOPY [facility] Endoscopy Patient Name: Linda Serrano ? Procedure Date: 01/07/2014 12:22 PM ? Date of : 1945 ? Age: 68 ? Order #: [id number] ? Procedure: ? Colonoscopy Indications: ? Screening for colorectal malignant ? neoplasm Providers: ? Izzy Johnson MD, Yesi Woodruff, ? RN, Willem [address], Lens And Frames Prescription Clerk Referring : ?Villa Krause MD Medicines: ? Fentanyl 150 [...] EDT Villa Krause MD GENERAL SUR[facility] documented in this encounter Visit Diagnoses Not on filedocumented in this encounter Administered Medications Inactive Administered Medications - up to 3 most recent administrations Medication Order MAR Action Action Date Dose Rate Site lactated ringers infusion 100 mL/hr, Intravenous, CONTINUOUS, Starting on Mon01/07/14 at 1215, Until Mon01/07/14 at 1805, Endoscopy (Day of Procedure) New Bag 01/07/2014 11:59 AM EDT 100 mL/hr 100 mL/hr documented in this encounter Active and Recently Administered Medications Times are shown in EDT. Continuous Medication Order 01/05/2014 01/06/2014 01/07/2014 lactated ringers infusion (CANCELED) 100 mL/hr, Intravenous, CONTINUOUS, Starting on Mon01/07/14 at 1215, Until Mon01/07/14 at 1805, Endoscopy (Day of Procedure) 1159 (New Bag - Prov ider: Carlos Hardy, LOS) PRN Medication Order 01/05/2014 01/06/2014 01/07/2014 fentaNYL 50mcg/mL injection (CANCELED) ONCE PRN, Starting on Mon01/07/14 at 1259, Until Mon01/07/14 at 1805, Pain, Intra-Operative (Intra-Procedure), Routine 1259 (Given - Provid er: Yesi Woodruff RN)1304 (Given - Provider: Yesi Woodruff RN)1311 (Given - Provider: Yesi Woodruff RN)1317 (Given - Provider: Yesi Woodruff RN) midazolam (PF) (VERSED) 1 mg/mL injection (CANCELED) ONCE PRN, Starting on Mon01/07/14 at 1259, Until Mon01/07/14 at 1805, Sleep, Intra-Operative (Intra-Procedure), Routine 1259 (Given - Provid er: Yesi Woodruff RN)1302 (Given - Provider: Yesi Woodruff RN)1311 (Given - Provider: Yesi Woodruff RN)1317 (Given - Provider: Yesi Woodruff RN) documented in this encounter Care Teams Assembly Line Brazer Relationship Specialty Start Date End Date Villa Krause MD [address] [place] [address] PCP - General 12/25/13 10/10/16 documented as of this encounter
--- OUTSIDE RECORDS SUMMARY | 2023-11-02 02:35 | XMS_ITS | Encounter Summary ---
Author Organization [facility] Address [facility] [place] [place] [address] Care Team Providers Care Landscaping Crew Leader Name Role Phone Villa Krause MD Primary Care Provider [phone] Encounter Details Date Type Department Care Team (Latest Contact Info) Description 04/28/2014 2:19 PM EST - 04/28/2014 11:59 PM [facility] Hospital Encounter XRay at [address] [place] [phone] CLINIC, Villa Balbuena MD [address] [place], [place] [phone] Discharge Disposition: Home Social History Tobacco Use Types Packs/Day Years Used Date Smoking Tobacco: Never Sex and Gender Information Value Date Recorded Sex Assigned at Not on file Gender Identity Not on file Sexual Orientation Not on file documented as of this encounter Medications at Time of Discharge Medication Sig Dispensed Refills Start Date End Date desonide (DESOWEN) 0.05 % CreamIndications:[place] titis,Seborrheic dermatitis Once daily to the forehead [...] PM EDT Office Visit Hematology/Oncology at [address] [phone] Mary Nails APRN [address] [place] [address] DR MEDICAL ONCOLOGY [place], [place] [id number] 11/02/2023 1:30 PM EDT Infusion Hematology Oncology at [address] [phone] documented as of this encounter Procedures Procedure Name Priority Date/Time Associated Diagnosis Comments DXA CENTRAL SPINE, HIP, AND/OR WHOLE BODY (GENERIC) Routine 04/28/2014 3:15 PM EST documented in this encounter Results * Dexa central-spine, hip, and/or whole body (04/28/2014 3:15 PM EST) Anatomical Region Laterality Modality C-spine, Hip N/A Radiographic Jaqueline ging 04/28/2014 3:15 PM EST Impressions 04/30/2014 11:12 AM EST IMPRESSION: The measurements satisfied the WHO classification for low bone mass or osteopenia. There is no significant change ??since 2011 . Findings indicate positive response to therapy. Estimating Fracture Risk: ? The relationship between bone mineral density (BMD) [...] independent, risk factors in addition to BMD. ? The World Health Organization (WHO) has developed [...] website which you are encouraged to review. ? DEXA data sheets with BMD measurements and plots are available in [employer] under the imaging tab. Paper copies will be sent to providers without [employer] access. If you have received this report without the data sheet and do not have access to [employer], please contact Radiology Inventory Associate And Driver at [phone] Monday thru Monday 8am-4pm. Narrative 04/30/2014 11:12 AM EST EXAMINATION: DXA CENTRAL-SPINE,HIP, AND/OR WHOLE BODY CLINICAL HISTORY: LAST 03/28;ESTROGEN DEFICIENT, POSTMENOPAUSAL history of past osteoporosis intervention with fosamax medication TECHNIQUE: Scans were acquired at the lumbar spine, left hip ? . FINDINGS: Lowest T-score at the diagnostic region of interest: T-score: -1.9, CATARINO: Femoral neck, WHO diagnosis: low bone mass or osteopenia. ......... Comparison......... Previous scan: 2011, Baseline scan: 2001 Total hip: Compared to the most recent scan, no significant change. Compared to the baseline scan, no significant change Total spine: Compared to the most recent scan,no significant change. Compared to the baseline scan, no significant change. Procedure Note Gloria Mcpherson MD - 04/30/2014 EXAMINATION: DXA CENTRAL-SPINE,HIP, AND/OR WHOLE BODY CLINICAL HISTORY: LAST 03/28;ESTROGEN DEFICIENT, POSTMENOPAUSAL history of past osteoporosis intervention with fosamax medication TECHNIQUE: Scans were acquired at the lumbar spine, left hip . FINDINGS: Lowest T-score at the diagnostic region of interest: T-score: -1.9, CATARINO: Femoral neck, WHO diagnosis: low bone mass orosteopenia. ......... Comparison......... Previous scan: 2011, Baseline scan: 2001 Total hip: Compared to the most recent scan, no significant change. Compared to the baseline scan, no significant change Total spine: Compared to the most recent scan,no significant change. Compared to the baseline scan, no significant change. IMPRESSION IMPRESSION: The measurements satisfied the WHO classification for low bone mass or osteopenia. There is no significant change since 2011 . Findingsindicate positive response to therapy. Estimating Fracture Risk: ? The relationship between bone mineral density (BMD) [...] partially independent,risk factors in addition to BMD. ? The World Health Organization (WHO) has developed [...] website which you are encouraged to review. ? DEXA data sheets with BMD measurements and plots are available in [employer] the imaging tab. Paper copies will be sent to providers without [employer] access.If you have received this report without the data sheet and do not haveaccess to [employer], please contact Radiology Inventory Associate And Driver at [phone] Monday thruFriday 8am-4pm. Steph Schulz MD IMG DEXA ORDERABLES documented in this encounter Visit Diagnoses Not on filedocumented in this encounter Care Teams Landscaping Crew Leader Relationship Specialty Start Date End Date Villa Krause MD [address] [place] [address] PCP - General 12/25/13 10/10/16 documented as of this encounter
--- OUTSIDE RECORDS SUMMARY | 2023-11-02 02:35 | XMS_ITS | Encounter Summary ---
Author Organization [facility] [place] [address] Care Team Providers Care Clean Room Technician Name Role Phone Zeny James APRN Primary Care Provider Encounter Details Date Type Department Care Team (Late st Contact Info) Description 11/25/2019 11:26 AM EDT - 11/25/2019 11:59 PM EDT Hospital Encounter Mammography/[place] [address] Zeny James APRN [address] [place], [place] [address] Encounter for screening mammogram for breast cancer [...] by mouth every other day. 10/25/2019 04/11/2020 [id number] e (Creon) 24,000-76,000 -120,000 unit Capsule, Delayed Release(E.C.) [...] PM EDT Office Visit Hematology/Oncology at [address] [phone] Mary Nails SPEECH AND LANGUAGE TUTOR [address] [place] [address] DR MEDICAL ONCOLOGY [place], [place] [phone] 11/02/2023 1:30 PM EDT Infusion Hematology Oncology at [address] [phone] documented as of this encounter Procedures Procedure Name Priority Date/Time Associated Diagnosis Comments MAMMO SCREENING CAD AND KINJAL LEFT Routine 11/25/2019 11:50 AM EDT Encounter for screening mammogram for breast cancer documented in this encounter Results * Mammo Screening Cad and Kinjal Left (11/25/2019 11:50 AM EDT) Anatomical Region [...] from the nipple measuring 1 cm. Zeny James APRN IMG MAMMO ORDERABLE S documented in this encounter Visit Diagnoses Diagnosis Encounter for screening mammogram for breast cancer documented in this encounter Care Teams Clean Room Technician Relationship Specialty Start Date End Date Zeny James APRN [address] [place] [address] PCP - General Family Medicine 09/23/19 documented as of this encounter
--- OUTSIDE RECORDS SUMMARY | 2023-11-02 02:35 | XMS_ITS | Encounter Summary ---
Author Organization [facility] [place] [address] Care Team Providers Care Video Camera Operator Name Role Phone Villa Krause MD Primary Care Provider [phone] Encounter Details Date Type Department Care Team (Latest Contact Info) Description 08/26/2015 11:01 AM EDT - 08/26/2015 11:59 PM EDT Hospital Encounter [place] [address] Villa Krause MD [address] [place], [place] [phone] Breast cancer screening, high risk patient Discharge Disposition: Home Social History Tobacco Use Types Packs/Day Years Used Date Smoking Tobacco: Never Sex and Gender Information Value Date Recorded Sex Assigned at Not on file Gender Identity Not on file Sexual Orientation Not on file documented as of this encounter Medications at Time of Discharge Medication Sig Dispensed Refills Start Date End Date desonide (DESOWEN) 0.05 % CreamIndications:[place] titis,Seborrheic dermatitis Once daily to the forehead [...] PM EDT Office Visit Hematology/Oncology at [address] [phone] Mary Nails APRN [address] [place] [address] DR MEDICAL ONCOLOGY [place], [place] [id number] 11/02/2023 1:30 PM EDT Infusion Hematology Oncology at [address] [phone] documented as of this encounter Procedures Procedure Name Priority Date/Time Associated Diagnosis Comments MAMMO SCREENING CAD AND KINJAL LEFT Routine 08/26/2015 11:19 AM EDT Breast cancer screening, high risk patient documented in this encounter Results * Mammo Digital Left Screening with CAD and Tomosynthesis (08/26/2015 11:19 AM EDT) Anatomical Region Laterality Modality Breast Left Mammography Narrative 08/26/2015 12:57 PM EDT EXAMINATION: Unilateral left breast mammogram CLINICAL HISTORY: Personal history of breast cancer. Status post right mastectomy. Technique: CC and MLO views were obtained of the left breast using standard 2-D mammography as well as 3-D tomosynthesis. Computer aided detection was used. Comparison: This is compared with prior images. Findings: There are scattered areas of fibroglandular density. There are no suspicious microcalcifications, masses, or areas of distortion. The pattern is stable. Conclusion: No mammographic evidence of malignancy. Recommendation: Routine screening. BI-RADS Category 1: Negative * ??The [employer] [employer] and The Society of Breast Imaging recommend annual screening beginning at age 40 for the general female population. * ??Screening should continue as long as a woman is in good health and is expected to live 10 more years or longer. * ??All women should be familiar with the known benefits, limitations, and potential harms linked to breast cancer screening. They also should know how their breasts normally look and feel and report any breast changes to a health care provider right away. * ??Some women, because of their family history, a genetic tendency, or certain other factors, should be screened with MRIs along with mammograms. (The number of women who fall into this category is very small.) The patient and health care provider should discuss the patient history and decide if earlier screening and breast MRI are appropriate. Villa Krause MD IMG MAMMO ORDERABLES documented in this encounter Visit Diagnoses Diagnosis Breast cancer screening, high risk patient Screening mammogram for high-risk patient documented in this encounter Care Teams Video Camera Operator Relationship Specialty Start Date End Date Villa Krause MD [address] [place] [address] PCP - General 12/25/13 10/10/16 documented as of this encounter
--- OUTSIDE RECORDS SUMMARY | 2023-11-02 02:35 | XMS_ITS | Encounter Summary ---
Author Organization [facility] [place] [address] Care Team Providers Care Registered Client Associate Name Role Phone Zeny James APRN Primary Care Provider [phone] Encounter Details Date Type Department Care Team (Late st Contact Info) Description 11/15/2019 12:04 PM EDT Anesthesia Event [place] [address] Alba Coats MD [facility] [place] [address] Denzel Torres CRNA [facility] [place] [address] Anesthesia Record Procedure Summary Procedure Name Responsible Anesthesiologist Anesthesia Start Time Anesthesia Stop Time UPPER EUS- ENDOSCOPIC ULTRASOUND (WRVU 3.47) (Trunk) Alba Coats MD 11/15/19 1204 11/15/19 1302 Events Date Time Event Comment 11/15/2019 1202 1204 AN Verify 1204 Start 1204 An Start Data 1208 An Induction 1209 An Intubation 1215 Anesthesia Ready 1219 Quick Note Pt placed prone with 4 staff. ETT unchanged + Bilat BS, + ETCO2. 1253 Extubation/LMA Out 1253 an stop data 1254 Recovery or ICU Handoff Alexandra ent care was transferred to the destination unit staff after review of the patient's medical history, current anesthetic/surgical status and plan, according to the Provider Handoff Checklist. 1302 Stop Meds Name Total IV Lidocaine 40 mg Propofol 190 mg Ondansetron 4 mg Dexamethasone 4 mg Succinylcholine 80 mg lactated ringers infusion 400 mL * Agents Name O2 Air N2O Sevoflurane (et) * Blood No blood administrations on file. Lines, Drains, and Airways Type Details Placement Removal (RETIRED) Peripheral IV Line - Single Lumen metacarpal vein (top of hand), left; 20 gauge; alba coats B; 12/20/19; 1502 11/15/19 1223 by 12/20/19 1502 by Raimundo Hubbard (RETIRED) Peripheral IV Line - Single Lumen 11/15/19; 1155; metacarpal vein (top of hand), left; [id number]-gplgdx catheter system; 24 gauge, 3/4 in length; Abhishek Ramirez RN; distraction, tolerated well, appears comfortable; 0; 11/15/19; 1355 11/15/19 1155 by Bridget Montalvo RN 11/15/19 1355 by Rasheed Bruno RN ETT Mask Ventilation: Ea sy (1); ETT Type: Cuffed, Oral; ETT Size: 7 mm; Mac Blade: 3; Notes: Asleep, Pre-O2, Cricoid Pressure; Attempts: 1; Laryngoscopy Grade: 1; ETT Placement Verified By: Auscultation, Capnometry, Visual; Secured at Teeth: 21 cm; Removal Date: 11/15/19; Removal Time: 1253 11/15/19 1216 by Denzel Torres CRNA 11/15/19 1253 by Denzel Torres CRNA (RETIRED) Peripheral IV Line - Single Lumen 11/15/19; 1231; median vein (underside of arm), left; vrpg-zwo-rhfhik catheter system; 20 gauge; 11/15/19; 1355 11/15/19 1231 by Denzel Torres CRNA 11/15/19 1355 by Rasheed Bruno RN documented in this encounter Social History Tobacco Use Types Packs/Day Years Used Date Smoking Tobacco: Never Smokeless Tobacco: Never Sex and Gender Information Value Date Recorded Sex Assigned at Not on file Gender Identity Not on file Sexual Orientation Not on file documented as of this encounter OR Notes * Anesthesia Postprocedure Evaluation - Alba Coats MD - 11/15/2019 1:50 PM EDT Department of Anesthesiology Post-procedure Note Patient: Linda Serrano Procedure Summary Date: 11/15/19 Room / Location: [facility] ENDO 3 / [facility] Anesthesia Start: 1204 Anesthesia Stop: 1302 Procedure: UPPER EUS- ENDOSCOPIC ULTRASOUND (N/A Trunk) Diagnosis: (Other chronic pancreatitis) (Please schedule this patient with me for eus and ercp in the next 3 weeks - 90min with anesthesia okay to use consult time=.) Surgeon: Ralf Urrutia MD Responsible Provider: Alba Coats MD Anesthesia Type: general ASA Status: 2 All Anesthesia Providers: Anesthesiologist: Alba Coats MD LINE PERSON: Denzel Torres CRNA Student Nurse Poising Inspector: Jer Rodríguez Vitals Value Taken Time BP 156/85 11/15/19 1345 Temp Pulse 66 11/15/19 1315 Resp 16 11/15/19 1315 SpO2 100 % 11/15/19 1346 Pain Level 0 11/15/19 1315 Vitals shown include unvalidated device data. Patient Location: PACU/[facility] Level of Consciousness: Awake and Alert Pain Management: Satisfactory Analgesia PONV: None Cardiovascular Status: At Baseline and Hemodynamically Stable Respiratory Status: At Baseline and Room Air Postoperative Fluid Status: Intravascular EUvolemia Possible Anesthetic Complications: NONE apparent at time of evaluation Final Primary Anesthesia Type: General (The anesthetic type performed was the same as planned.) Comments: Pt did well today! ALAB COATS MD * Anesthesia Preprocedure Evaluation - Alba Coats MD - 11/15/2019 5:48 AM EDT Pre-Anesthesia Evaluation for: Linda Serrano a 74 y.o. female. Procedure(s): UPPER EUS- ENDOSCOPIC ULTRASOUND ERCP Patient Active Problem List Diagnosis ??? AK (actinic keratosis) ??? 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 ER-pos; NC-neg; HER2=2+. 02/06/01: R MRM/ax dissection. On path, [...] DIAGNOSTIC performed by Izzy Johnson MD at [facility] ENDOSCOPY Social History Tobacco Use ??? Smoking status: Never Smoker ??? Smokeless tobacco: Never Used Substance Use Topics ??? Alcohol use: Not on file Social History Substance and Sexual Activity Drug Use Not on file Allergies Allergen Reactions ??? Iodinated Contrast Media Shortness Of Breath ??? House Dust Medications: MAR and/or home medications have been reviewed. Physical Exam: No data found. There is no height or weight on file to calculate BMI. Airway Assessment: Mallampati: II TM distance: >3 FB Neck ROM: full Cardiovascular Assessment: Rhythm: regular Pulmonary Assessment: breath sounds clear to auscultation Dental Assessment: Misc Assessment: IV access: Peripheral line Anesthesia Plan: ASA 2 general, with a(n) intravenous induction 74 y/o here for EGD / ERCP for abdominal pain and dilated pancreatic ducts, did have small sips of water in last couple hours, no food PMH: HTN, breast cancer, asthma PSH: mastectomy, colonoscopy, no problems with anesthesia in the past Plan : General ETT, RSI, can move neck and shoulders The patient was informed of the risks of anesthesia, and consent was obtained. The risks of anesthesia include, but are not limited to, PONV, pain, sore throat, and other rare but serious complications such as major organ damage, allergies, blood transfusions, intraoperative awareness, and dental/lip trauma. Region - Other Informed Consent: Anesthetic plan and risks discussed with patient. Plan discussed with LINE PERSON. PAT Clinic Note documented in this encounter Plan of Treatment Upcoming Encounters Date Type Department Care Team (Late st Contact Info) Description 11/02/2023 1:00 PM EDT Office Visit Hematology/Oncology at [address] [phone] Mary Nails APRN [address] [place] [address] [place] [address] 11/02/2023 1:30 PM EDT Infusion Hematology Oncology at [address] [phone] documented as of this encounter Visit Diagnoses Not on filedocumented in this encounter Administered Medications Inactive Administered Medications - up to 3 most recent administrations Medication Order MAR Action Action Date Dose Rate Site dexamethasone (Decadron) injection PRN, Starting on Mon11/15/19 at 1228, Until Mon11/15/19 at 1302, Anesthesia Intra-op, Routine Given 11/15/2019 12:28 PM EDT 4 mg lactated ringers infusion 100 mL/hr, Intravenous, CONTINUOUS, Starting on Mon11/15/19 at 1215, Until Mon11/15/19 at 1356, Endoscopy (Day of Procedure) New Bag 11/15/2019 12:04 PM EDT lidocaine (PF) (XYLOCAINE) 100 mg/5 mL (2 %) injection PRN, Starting on Mon11/15/19 at 1207, Until Mon11/15/19 at 1302, Anesthesia Intra-op, Routine Given 11/15/2019 12:07 PM EDT 40 mg ondansetron (ZOFRAN) injection PRN, Starting on Mon11/15/19 at 1213, Until Mon11/15/19 at 1302, Anesthesia Intra-op, Routine Given 11/15/2019 12:13 PM EDT 4 mg propofol (DIPRIVAN) 10 mg/mL bolus injection (Anesthesia) PRN, Starting on Mon11/15/19 at 1208, Until Mon11/15/19 at 1302, Anesthesia Intra-op Given 11/15/2019 12:10 PM EDT 40 mg Given 11/15/2019 12:08 PM EDT 150 mg succinylcholine chloride (Quelicin) injection PRN, Starting on Mon11/15/19 at 1208, Until Mon11/15/19 at 1302, Anesthesia Intra-op, Routine Given 11/15/2019 12:08 PM EDT 80 mg documented in this encounter Care Teams Registered Client Associate Relationship Specialty Start Date End Date Zeny James APRN [address] [place] [address] [address] [place] [address] PCP - General Family Medicine 09/23/19 documented as of this encounter
--- OUTSIDE RECORDS SUMMARY | 2023-11-02 02:35 | XMS_ITS | Encounter Summary ---
Author Organization [facility] [place] [address] Care Team Providers Care Ward Maid Name Role Phone Steph Schulz MD Primary Care Provider Encounter Details Date Type Department Care Team (Latest Contact Info) Description 04/25/2013 11:19 AM EST - 04/25/2013 11:59 PM [facility] Hospital En[place] [address] CLINIC, Steph Cason MD [address] [place], [place] [id number] Discharge Disposition: Home Social History Tobacco Use [...] PM EDT Office Visit Hematology/Oncology at [address] [phone] Mary Nails MARKETING AND COMMUNICATIONS OFFICER [address] [place] [address] MEDICAL ONCOLOGY [place], [place] [phone] 11/02/2023 1:30 PM EDT Infusion Hematology Oncology at [address] [phone] documented as of this encounter Procedures Procedure Name Priority Date/Time Associated Diagnosis Comments MAMMO UNILATERAL DIGITAL SCREENING Routine 04/25/2013 11:50 AM EST documented in this encounter Results * Mammo unilateral digital screening (04/25/2013 11:50 AM EST) Anatomical Region Laterality Modality Breast N/A Mammography 04/25/2013 11:5 0 AM EST Narrative 04/26/2013 10:41 AM EST Reason for Exam: Screening, History of Breast Cancer status post mastectomy. Technique: Craniocaudal (CC) and Medio-lateral Oblique (MLO) views of the left breast obtained with direct digital capture. In addition to routine 2-D imaging, this exam was also performed with 3-D Tomographic Imaging (MLO and CC). The exam was evaluated by CAD [...] by the breast imaging center. Procedure Note Parmjit Will MD - 04/26/2013 Reason for Exam: Screening, History of Breast Cancer status post mastectomy. Technique: Craniocaudal (CC) and Medio-lateral Oblique (MLO) [...] on filedocumented in this encounter Care Teams Ward Maid Relationship Specialty Start Date End Date Steph Schulz MD [address] [place] [address] PCP - General 03/09/10 12/24/13 documented as of this encounter
--- OUTSIDE RECORDS SUMMARY | 2023-11-02 02:35 | XMS_ITS | Encounter Summary ---
Author Organization [facility] [place] [address] Care Team Providers Care Mineral Engineer Name Role Phone Zeny James APRN Primary Care Provider Encounter Details Date Type Department Care Team (Late st Contact Info) Description 11/15/2019 1:00 PM EDT - 11/15/2019 2:15 PM EDT Surgery Gastroenterology at [facility] [place] [address] Ralf Urrutia MD [facility] [place] [address] UPPER EUS- ENDOSCOPIC ULTRASOUND (WRVU 3.47) Social History Tobacco Use Types Packs/Day Years [...] Care Everywhere. * Ultrasound: Endoscopic (Oral): Post-op ([place]gent[place]) documented in this encounter Medications at Time [...] 2 10/11/2016 11/25/2019 desonide (DESOWEN) 0.05 % CreamIndications:[place] titis,Seborrheic dermatitis Once daily to the forehead [...] Urrutia MD - 11/15/2019 12:44 PM EDT [facility] Operative Note Patient Name: Linda Serrano : [id number] MR#: [id number] Case Date: 11/15/2019 Surgeon: Surgeon(s) and Role: [...] PM EDT Office Visit Hematology/Oncology at [address] [phone] Mary Nails, ASSISTANT PROFESSOR [address] [place] [address] MEDICAL ONCOLOGY [place], [place] [phone] 11/02/2023 1:30 PM EDT Infusion Hematology Oncology at [address] [phone] Pending Results Name Type Priority Associated Diagnoses Date /Time XR ERCP Imaging Storage Only Routine 10/17 12:11 PM EDT Scheduled Orders Name Type Priority Associated Diagnoses Orde r Schedule XR ERCP Imaging Storage Only Routine Once PRN (for Radiant use) for 1 Occurrences starting 11/15/2019 until 11/15/2019 documented as of this encounter Procedures Procedure Name Priority Date/Time Associated Diagnosis Comments NON-EDGE BRUSHER FINAL REPORT Routine 11/15/2019 12:44 PM EDT HC CARCINO-EMBRYONIC AG ASSAY Routine 11/15/2019 12:44 PM EDT HC AMYLASE Routine 11/15/2019 12:44 PM EDT CYTOPATHOLOGY NON-GYNECOLOGICAL Routine 11/15/2019 12:44 PM EDT Endoscopic Us Exam, Esoph ([id number]) 11/15/2019 12:09 PM EDT Other chronic pancreatitis Please schedule this patient with me for eus and ercp in the next 3 weeks - 90min with anesthesia okay to use consult time=. UPPER EUS-ENDOSCOPIC ULTRASOUND Routine 11/15/2019 12:07 PM EDT documented in this encounter Results * Non-Campus Executive Director Final Report (11/15/2019 12:44 PM EDT) Non-Campus Executive Director Final Report [id number] ? Location: 4T; EA09; A The signing pathologist has (i) examined the relevant preparation(s) for the specimen(s) and (ii) rendered or confirmed the diagnosis(es). . ? Non-Campus Executive Director Final DIAGNOSIS Neoplastic Cells Present See discussion. Electronically signed by: ??Linda CLANCY PhD, Heath Martinez Verified: ??11/18/2019 ?Pathologist Performed at: ??-[facility] Dept. of Pathology, [place], [place] DISCUSSION Pancreas (EUS-guided FNA): Abundant macrophages, [...] Preparation: Liquid-Based Prep 1; Cell Block 1. [facility] 11/15/2019 12:4 4 PM EDT Ralf Urrutia MD PATHOLOGY/CYTOLOGY O LORE [facility] [place] [place] [address] * Amylase Level Body Fluid Pancreatic Cyst (11/15/2019 12:44 PM EDT) Amylase, BF 783 unit/L [facility] Comment: No reference range is available for the specimen type submitted. ??The performance of this assay for the submitted type has not been validated and results should be interpreted accordingly and with regard to the patient's clinical status. Amylase BF Type Pancreatic cyst [facility] Pancreas cyst fluid specimen (specimen) 11/15/2019 12:44 PM EDT 11/15/2019 1:56 PM EDT Narrative Resulting Agency Comment Spec In Lab Ralf Urrutia MD BODY FLUIDS AND STOO LS ORDERABLES Performing Organization Address [facility] Co de Phone Number [facility] [place] [address] * CEA Body Fluid Pancreatic Cyst (11/15/2019 12:44 PM EDT) CEA BF 691.0 ng/mL [facility] Comment: No reference range is available for the specimen type submitted. ??The performance of this assay for the submitted type has not been validated and results should be interpreted accordingly and with regard to the patient's clinical status. CEA BF Type Pancreatic cyst [facility] Pancreas cyst fluid specimen (specimen) 11/15/2019 12:44 PM EDT 11/15/2019 1:56 PM EDT Narrative Resulting Agency Comment Spec In Lab Ralf Urrutia MD BODY FLUIDS AND STOO LS ORDERABLES Performing Organization Address City/[facility]/ZIP Co de Phone Number [facility] [place] [address] * Cytopathology Non-Gynecological (11/15/2019 12:44 PM EDT) AP Specimen 11/15/2019 12:4 4 PM EDT 11/15/2019 12:44 PM EDT Narrative [facility] - 11/15/2019 12:44 PM EDT Specimen requisition ordered. ??Separate Pathology report to follow Ralf Urrutia MD PATHOLOGY/CYTOLOGY O LORE [facility] [place] [address] * UPPER EUS-ENDOSCOPIC ULTRASOUND (11/15/2019 12:07 PM EDT) UPPER ENDOSCOPIC ULTRASOUND [facility] Endoscopy Procedure Date: 11/15/2019 12:07 PM ? Patient Name: Linda Serrano ? N: [id number] ? Date of : 1945 ? Age: 74 ? Order #: [id number] ? Instrument Name: [id number] Daisy ? Procedure: ? Upper EUS Indications: ? Suspected solid pancreatic neoplasm, ? Suspected cystic pancreatic neoplasm Providers: ? Ralf Urrutia, Dino Hernandez, ? Gina MADISON Referring MD: ? Medicines: ? General Anesthesia [...] Procedure Code(s): ?? --- Professional --- ? 34032, Esophagogastroduod enoscopy, ? flexible, transoral; with ? [...] of ? digestive tract CPT copyright 2019 [employer]. All rights reserved. The codes documented in this report are preliminary and upon cpc coder review may be revised to meet current [...] CRNA) documented in this encounter Care Teams Mineral Engineer Relationship Specialty Start Date End Date Zeny James APRN [address] [place] [address] [address] [facility] [address] [place] [address] PCP - General Family Medicine 09/23/19 documented as of this encounter
--- OUTSIDE RECORDS SUMMARY | 2023-11-02 02:35 | XMS_ITS | Encounter Summary ---
Author Organization [facility] [place]ela [place] [address] Care Team Providers Care Procurement Services Manager Name Role Phone Maria Esther Street MD Primary Care Provider Encounter Details Date Type Department Care Team (Latest Contact Info) Description 10/12/2017 12:09 PM EDT - 10/12/2017 11:59 PM EDT Hospital En[place] [address] MD [address] [place] [phone] Encounter for screening mammogram for breast [...] 2 10/11/2016 11/25/2019 desonide (DESOWEN) 0.05 % CreamIndications:[place] titis,Seborrheic dermatitis Once daily to the forehead [...] PM EDT Office Visit Hematology/Oncology at [address] [phone] Mary Nails APRN [address] [place] [address] MEDICAL ONCOLOGY [place], [place] [phone] 11/02/2023 1:30 PM EDT Infusion Hematology Oncology at [address] [phone] documented as of this encounter Procedures Procedure Name Priority Date/Time Associated Diagnosis Comments MAMMO SCREENING CAD AND KINJAL LEFT Routine 10/12/2017 1:41 PM EDT Encounter for screening mammogram for breast cancer documented in this encounter Results * Mammo Screening Cad and Kinjal Left (10/12/2017 1:41 PM EDT) Anatomical Region Laterality Modality Breast Left Mammography Narrative 10/12/2017 4:22 PM EDT Left mammography Reason for exam: History of right breast cancer, mastectomy, and radiation, 2000 and 2001. Technique: CC and MLO views were obtained of the left breast using standard 2-D mammography as well as 3-D tomosynthesis. Computer aided detection was used. Comparison: This is compared with prior images. Findings: The breasts are heterogeneously dense, which may obscure small masses. There are no suspicious microcalcifications, masses, or areas of distortion. The pattern is stable. Stable benign focal asymmetries and punctate benign-appearing calcifications. Conclusion: No mammographic evidence of malignancy. Recommendation: Routine screening. BI-RADS Category 2: Benign findings. * ??The [place] and The Society of [...] earlier screening and breast MRI are appropriate. Maria Esther Street MD IMG MAMMO ORDERABLE S documented in this encounter Visit Diagnoses Diagnosis Encounter for screening mammogram for breast cancer documented in this encounter Care Teams Procurement Services Manager Relationship Specialty Start Date End Date Maria Esther Street MD [address] [place] [address] [place] [phone] PCP - General Family Medicine 10/11/16 09/22/19 documented as of this encounter
--- OUTSIDE RECORDS SUMMARY | 2023-11-02 02:35 | XMS_ITS | Encounter Summary ---
Author Organization [facility] [place] [address] Care Team Providers Care Inter Com Installer Name Role Phone Zeny James APRN Primary Care Provider Reason for Visit * Reason Comments Skin Check Encounter Details Date Type Department Care Team (Late st Contact Info) Description 11/25/2019 1:00 PM EDT Office Visit Dermatology at [place] [address] [place] [address] Michael Cavazos MD [facility] [place] [address] Reyes angioma; SK (seborrheic keratosis); Lentigines; Multiple benign nevi; History of basal cell carcinoma Social History Tobacco Use Types Packs/Day Years Used Date Smoking Tobacco: Never Smokeless Tobacco: Never Sex and Gender Information Value Date Recorded Sex Assigned at Not on file Gender Identity Not on file Sexual Orientation Not on file documented as of this encounter Progress Notes * Michael Cavazos MD - 11/25/2019 1:00 PM EDT DERMATOLOGY ESTABLISHED PATIENT CLINIC NOTE Date of service: 11/25/2019 Linda Serrano : 1945 Provider: Michael Cavazos MD Preferred name: Linda Preferred contact method with results: Home Message okay: yes ?? PROBLEM: skin cancer screening SKIN HISTORY: 01/2010 back [facility] Lentigines Seborrheic Keratosis HPI Ms. Serrano is a 74 y.o. year old female. Established patient, last seen 11/15/2018. Here today forfull skin exam with a few concerns on the left leg and back that are asymptomatic. ADR: Iodinated contrast media and House dust MEDS: Current Outpatient Medications on File Prior to Visit Medication Sig Dispense Refill ??? cholecalciferol, Vitamin D3, 1,000 unit Capsule Take 1,000 Units by mouth daily. ??? multivit,iron,minerals/lutein (CENTRUM SILVER ULTRA WOMEN'S ORAL) Take by mouth daily. ??? magnesium oxide 400 mg magnesium Capsule Take by mouth. ??? [DISCONTINUED] ketoconazole (NIZORAL) 2 % Shampoo To the scalp alternating with Free and Clear Shampoo 120 mL 2 ??? fish oil-omega-3 fatty acids 1,000 mg Capsule Take 2 g by mouth daily. ??? [DISCONTINUED] desonide (DESOWEN) 0.05 % Cream Once daily to the forehead and upper eyelids once daily for a week 60 g 1 ??? [DISCONTINUED] FLUTICASONE/SALMETEROL (ADVAIR HFA INHL) Inhale into the lungs. ??? CIS Free Text Med - Calcium 600 with Vitamin D2 ??? CIS Free Text Med - Albuterol 1 Puff(s), Inh, PRN ??? vitamin E 400 unit capsule No [...] No pigmented lesions suspicious for melanoma. E. Well healed scar ?? ASSESSMENT/PLAN: A. Reyes Angiomas - Reassured about benign nature and natural history. ?? B. Seborrheic Keratoses - Reassured about benign nature and natural history. ?? C. Solar Lentigines - Reassured about benign nature and natural history. - Sun avoidance, protective clothing and the use of SPF 30 sunscreen is advised. Observe closely for skin changes and call if such occurs ?? D. Benign Appearing Nevi - Reassured about benign nature and natural history. E. [facility] - NER RTC: 1 year FSE Note initiated and routed to physician for review and change by: Malka Jarrett LPN I, Malka Jarrett LPN, have performed the documentation for this encounter in the presence of and acting as a scribe for MICHAEL CAVAZOS MD. I performed the services which were documented by the scribe, and I agree with the accuracy of the documentation in this encounter. MICHAEL CAVAZOS MD. Michael Cavazos MD Section of Dermatology [facility] documented in this encounter Plan of Treatment Upcoming Encounters Date Type Department Care Team (Late st Contact Info) Description 11/02/2023 1:00 PM EDT Office Visit Hematology/Oncology at [address] [phone] Mary Nails APRN [address] [place] [address] DR MEDICAL ONCOLOGY [place], [place] [phone] 11/02/2023 1:30 PM EDT Infusion Hematology Oncology at [address] [phone] documented as of this encounter Visit Diagnoses Diagnosis Reyes angioma Nevus, non-neoplastic SK (seborrheic keratosis) Other seborrheic keratosis Lentigines Other dyschromia Multiple benign nevi Benign neoplasm of skin, site unspecified History of basal cell carcinoma Personal history of other malignant neoplasm of skin documented in this encounter Care Teams Inter Com Installer Relationship Specialty Start Date End Date Zeny James APRN [address] [place] [address] PCP - General Family Medicine 09/23/19 documented as of this encounter
--- OUTSIDE RECORDS SUMMARY | 2023-11-02 02:35 | XMS_ITS | Encounter Summary ---
Author Organization [facility] [place] [address] Care Team Providers Care Coding Validator Name Role Phone JairoZeny bentley JESUS ALBERTO Primary Care Provider Encounter Details Date Type Department Care Team (Late st Contact Info) Description 10/01/2019 Ancillary Procedure [place] [address] Zeny James APRN [address] [place], [place] [id number] Social History Tobacco Use Types Packs/Day Years [...] PM EDT Office Visit Hematology/Oncology at [address] [phone] Mary Nails APRN [address] [place] [address] MEDICAL ONCOLOGY [place], [place] [id number] 11/02/2023 1:30 PM EDT Infusion Hematology Oncology at [address] [phone] documented as of this encounter Procedures Procedure Name Priority Date/Time Associated Diagnosis Comments FILM LIBRARY STORAGE ONLY ULTRASOUND STUDY Routine 10/01/2019 12:00 AM EDT documented in this encounter Results * Film Library- Storage Only Ultrasound Study (10/01/2019 12:00 AM EDT) Narrative TAI - 10/02/2019 11:32 AM EDT This exam is auto-finalizing. It's purpose is for storage only. Zeny Adjtom GRANDA IMG FILM LIBRARY OR DERABLES Performing Organization Address City/State/[facility] Co de Phone Number [place], [place] documented in this encounter Visit Diagnoses Not on filedocumented in this encounter Care Teams Coding Validator Relationship Specialty Start Date End Date Zeny James APRN [address] [place] [address] PCP - General Family Medicine 09/23/19 documented as of this encounter
--- OUTSIDE RECORDS SUMMARY | 2023-11-02 02:35 | XMS_ITS | Encounter Summary ---
Author Organization [facility] Address [facility] [place] [address] Care Team Providers Care Dairy Husbandry Teacher Name Role Phone Villa Krause MD Primary Care Provider [phone] Reason for Visit * Reason Comments Skin Check Encounter Details Date Type Department Care Team (Late st Contact Info) Description 09/18/2014 10:30 AM EDT Follow-Up Dermatology at [place] [address] [place] [address] Estela Velasquez MD [facility] [place] [address] [place] (actinic keratosis); SK (seborrheic keratosis); Solar lentigo Discharge Disposition: Home Social History Tobacco Use Types Packs/Day Years Used Date Smoking Tobacco: Never Sex and Gender Information Value Date Recorded Sex Assigned at Not on file Gender Identity Not on file Sexual Orientation Not on file documented as of this encounter Progress Notes * Yuki Valencia, CHEF - 09/18/2014 10:14 AM EDT DERMATOLOGY ESTABLISHED PATIENT CLINIC NOTE Date of service: 09/18/2014 Linda Serrano : 1945 Provider: Estela Velasquez MD PROBLEM: Skin check SKIN HISTORY: CC back January 2010 Lentigines HPI Linda Serrano is a 68 y.o. year old female. Patient is here for a full skin check. She states that the spot on her buttocks is getting bigger and would like it checked. ADR: Allergies Allergen Reactions ??? Iodinated Contrast [...] were not examined. Significant skin findings: A. Buttocks 0.4-1 cm, brown-black papule/plaque with waxy stuck on appearance B. Right buttocks and left gluteal crease flesh colored papule x 2 C. 0.3-0.6cm light-brown evenly pigmented, well-demarcated macule D. 0.2-0.3cm scaly irregular pink papule left church ASSESSMENT/PLAN: A. seborrheic keratosis B. Dermal nevi- reassured about todays exam. C. Lentigo -The nature of sun-induced photo-aging and skin cancers is discussed. Sun avoidance, protective clothing, and the use of 30-SPF sunscreens is advised. Observe closely for skin damage/changes, and call if such occurs. D. actinic keratosis -Procedure Note: Procedure: Destruction of lesion(s) with cryotherapy. Number: 1 Location: left church Discussed procedure and expectations including risks (including risk of hypopigmentation) and benefits. Verbal consent obtained. Frozen with LN2, 15-30 second thaw time, TWICE. There were no complications; the patient tolerated the procedure well. Post-procedure expectations and wound care were reviewed. RTC: 1 year Note initiated by: Yuki Valencia CMA Routed to physician for review and changes: Estela Velasquez MD Section of Dermatology [facility] documented in this encounter Plan of Treatment Upcoming Encounters Date Type Department Care Team (Late st Contact Info) Description 11/02/2023 1:00 PM EDT Office Visit Hematology/Oncology at [address] [phone] Mary Nails APRN [address] [place] [address] DR MEDICAL ONCOLOGY [place], [place] [id number] 11/02/2023 1:30 PM EDT Infusion Hematology Oncology at [address] [phone] documented as of this encounter Visit Diagnoses Diagnosis AK (actinic keratosis) Actinic keratosis SK (seborrheic keratosis) Other seborrheic keratosis Solar lentigo Other dyschromia documented in this encounter Care Teams Dairy Husbandry Teacher Relationship Specialty Start Date End Date Villa Krause MD [address] [place] [address] PCP - General 12/25/13 10/10/16 documented as of this encounter
--- OUTSIDE RECORDS SUMMARY | 2023-11-02 02:35 | XMS_ITS | Encounter Summary ---
Author Organization [facility] [place] [address] Care Team Providers Care Health Promotion Manager Name Role Phone JairoZeny bentley JESUS ALBERTO Primary Care Provider Encounter Details Date Type Department Care Team (Late st Contact Info) Description 2019 Ancillary Procedure [place] [address] Zeny James APRN [address] [place], [place] [id number] Social History Tobacco Use Types Packs/Day Years [...] PM EDT Office Visit Hematology/Oncology at [address] [phone] Mary Nails APRN [address] [place] [address] MEDICAL ONCOLOGY [place], [place] [id number] 11/02/2023 1:30 PM EDT Infusion Hematology Oncology at [address] [phone] documented as of this encounter Procedures Procedure Name Priority Date/Time Associated Diagnosis Comments FILM LIBRARY STORAGE ONLY CT ABDOMEN AND PELVIS Routine 2019 12:00 AM EDT documented in this encounter Results * Film Library- Storage Only CT Abdomen & Pelvis (2019 12:00 AM EDT) Narrative TAI - 10/02/2019 11:30 AM EDT This exam is auto-finalizing. It's purpose is for storage only. Zeny Adjtom GRANDA IMG FILM LIBRARY OR DERABLES Performing Organization Address City/State/[facility] Co de Phone Number [place], [place] documented in this encounter Visit Diagnoses Not on filedocumented in this encounter Care Teams Health Promotion Manager Relationship Specialty Start Date End Date Zeny James APRN [address] [place] [address] PCP - General Family Medicine 09/23/19 documented as of this encounter
--- OUTSIDE RECORDS SUMMARY | 2023-11-02 02:35 | XMS_ITS | Encounter Summary ---
Author Organization [facility] [place] [address] Care Team Providers Care Youtuber Name Role Phone VasuZeny santos JESUS ALBERTO Primary Care Provider Encounter Details Date Type Department Care Team (Late st Contact Info) Description 11/15/2019 12:15 PM EDT Ancillary [place] [address] Social History Tobacco Use Types Packs/Day Years [...] PM EDT Office Visit Hematology/Oncology at [address] [phone] Mary Nails MODEL MAKER PLASTER [address] [place] [address] DR MEDICAL ONCOLOGY [place], [place] [id number] 11/02/2023 1:30 PM EDT Infusion Hematology Oncology at [address] [phone] Pending Results Name Type Priority Associated Diagnoses Date /Time XR ERCP Imaging Storage Only Routine 10/17 12:11 PM EDT documented as of this encounter Visit Diagnoses Not on filedocumented in this encounter Care Teams Youtuber Relationship Specialty Start Date End Date Zeny James APRN [address] [place] [address] PCP - General Family Medicine 09/23/19 documented as of this encounter
--- OUTSIDE RECORDS SUMMARY | 2023-11-02 02:35 | XMS_ITS | Encounter Summary ---
Author Organization [facility] Pamela altamirano [place] [id number] Care Team Providers Care Marketing Account Executive Name Role Phone Zeny James APRN Primary Care Provider Reason for Referral * Consultation (Routine) - Closed Specialty Diagnoses / Procedures Referred By Nir potts Referred To Contact General Surgery Diagnoses Pancreatic cyst aRlf Urrutia MD [facility] [place] [address] Regino Carolina MD [facility] [place] [address] Referral ID Status Reason Start Date Expiration Date V isits Requested Visits Authorized [id number] Closed Consult, Test & Treat 11/18/2019 11/17/2020 1 1 Encounter Details Date Type Department Care Team (Late st Contact Info) Description 11/18/2019 Telephone Gastroenterology at [facility] [place] [address] Ralf Urrutia MD [facility] [address] [place] [address] Social History Tobacco Use Types Packs/Day Years Used Date Smoking Tobacco: Never Smokeless Tobacco: Never Sex and Gender Information Value Date Recorded Sex Assigned at Not on file Gender Identity Not on file Sexual Orientation Not on file documented as of this encounter Miscellaneous Notes * Telephone Encounter - Ralf Urrutia MD - 11/18/2019 3:35 PM EDT I spoke with Ms Serrano regarding her pancreatic cyst analysis - 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 I will place a referral to pancreatic surgery to discuss operative intervention. documented in this encounter Plan of Treatment Upcoming Encounters Date Type Department Care Team (Late st Contact Info) Description 11/02/2023 1:00 PM EDT Office Visit Hematology/Oncology at [address] [phone] Mary Nails, MANUFACTURING CHIEF ENGINEER [address] [place] [address] MEDICAL ONCOLOGY [place], [place] [id number] 11/02/2023 1:30 PM EDT Infusion Hematology Oncology at [address] [phone] Scheduled Referrals Name Type Priority Associated Diagnoses Orde r Schedule Referral to General Surgery Outpatient Referral Routine Pancreatic cyst Ordered: 11/18/2019 documented as of this encounter Visit Diagnoses Diagnosis Pancreatic cyst Cyst and pseudocyst of pancreas documented in this encounter Care Teams Marketing Account Executive Relationship Specialty Start Date End Date Zeny James APRN [address] [place] [address] PCP - General Family Medicine 09/23/19 documented as of this encounter
--- OUTSIDE RECORDS SUMMARY | 2023-11-02 02:35 | XMS_ITS | Encounter Summary ---
Author Organization [facility] [place] [address] Care Team Providers Care Intelligence Analyst Name Role Phone Zeny James AUTOMOTIVE ASSEMBLER Primary Care Provider Encounter Details Date Type Department Care Team (Late st Contact Info) Description 11/05/2019 [place] [address] Katarzyna Cisneros Social History Tobacco Use Types Packs/Day Years Used Date Smoking Tobacco: Never Smokeless Tobacco: Never Sex and Gender Information Value Date Recorded Sex Assigned at Not on file Gender Identity Not on file Sexual Orientation Not on file documented as of this encounter Miscellaneous Notes * Telephone Encounter - Katarzyna Cisneros - 11/05/2019 11:26 AM EDT Linda Serrano [id number] Diagnosis/Indication: EUS/ ERCP 1. Have you ever had a/an EUS & ERCP before? No If yes, did you have any problems with the procedure? No What type of sedation was used: None 2. Do you take any Blood Thinners? No 3. Do you have a Pacemaker or Defibrillator device? No 4. Are you a diabetic? No 5. Do you have any Allergies to Eggs, Latex or Medications? No 6. Do you take any Oral Iron Supplements (Including multi-vitamins)? Yes (Multivitamin) 7. Do you have a history of three or more abdominal surgeries? No 8. Have you had a problem with sedation or anesthesia? No 9. Do you have a c-pap machine or oxygen tank? Neither 10. Do you take prescription narcotic pain medications, including suboxone or methodone? No 11. Do you have a preference regarding the gender of your provider? No Preference 12. Is there any other information you would like to give us to aid in scheduling? No 13. Say to patient: You must have a responsible green party who will drive you to your procedure, stay oncampus for the entire duration of your procedure, and drive you home from your procedure? *Please Verify the height and weight, and adjust if height and/or weight have changed* There is no height or weight on file to calculate BMI. *Delete if not needed* Height: 5'2 Weight: 120 BMI: 21.9 Age:74 y.o. documented in this encounter Plan of Treatment Upcoming Encounters Date Type Department Care Team (Late st Contact Info) Description 11/02/2023 1:00 PM EDT Office Visit Hematology/Oncology at [address] [phone] Mary Nails APRN [address] [place] [address] MEDICAL ONCOLOGY [place], [place] [id number] 11/02/2023 1:30 PM EDT Infusion Hematology Oncology at [address] [phone] documented as of this encounter Visit Diagnoses Not on filedocumented in this encounter Care Teams Intelligence Analyst Relationship Specialty Start Date End Date Zeny James APRN [address] [place] [address] PCP - General Family Medicine 09/23/19 documented as of this encounter
--- OUTSIDE RECORDS SUMMARY | 2023-11-02 02:35 | XMS_ITS | Encounter Summary ---
Author Organization [facility] [place] [address] Care Team Providers Care Testing Specialist Name Role Phone Villa Krause MD Primary Care Provider [phone] Encounter Details Date Type Department Care Team (Late st Contact Info) Description 01/07/2014 1:00 PM EDT - 01/07/2014 2:00 PM EDT Surgery [place] [address] Izzy Johnson MD [facility] [place] [address] COLONOSCOPY, DIAGNOSTIC (WRVU 3.26) Social History Tobacco Use Types Packs/Day Years [...] you need to be checked. Monday-Monday Clinic [phone] 8a-5p Same Day Endo [phone] 7a-8p Otherwise contact [phone] and ask to speak to the student development dean salmon gillnet vessel operator Follow up care is a gonsalez part of your treatment and safety. Be sure to make and go to all appointments, and call your doctor if you are having problems. Discharge instructions reviewed with patient who expresses understanding documented in this encounter Medications at Time of Discharge Medication Sig Dispensed Refills Start Date End Date desonide (DESOWEN) 0.05 % CreamIndications:[place] titis,Seborrheic dermatitis Once daily to the forehead [...] Johnson MD - 01/08/2014 7:35 AM EDT [facility] Operative Note Patient Name: Linda Serrano : [id number] MR#: [id number] Case Date: 01/07/2014 Surgeon: Surgeon(s) and Role: [...] PM EDT Office Visit Hematology/Oncology at [address] [phone] Mary Nails APRN [address] [place] [address] DR MEDICAL ONCOLOGY [place], [place] [id number] 11/02/2023 1:30 PM EDT Infusion Hematology Oncology at [address] [phone] documented as of this encounter Procedures Procedure Name Priority Date/Time Associated Diagnosis Comments COLONOSCOPY, DIAGNOSTIC (WRVU 3.26) 01/07/2014 12:56 PM EDT Surv 10 yr 12/24/03 COLONOSCOPY Routine 01/07/2014 12:22 PM EDT documented in this encounter Results * COLONOSCOPY (01/07/2014 12:22 PM EDT) COLONOSCOPY [facility] Endoscopy Patient Name: Linda Serrano ? Procedure Date: 01/07/2014 12:22 PM ? Date of : 1945 ? Age: 68 ? Order #: [id number] ? Procedure: ? Colonoscopy Indications: ? Screening for colorectal malignant ? neoplasm Providers: ? Izzy Johnson MD, Yesi Woodruff, ? RN, Willem Lane, Reporting Coordinator Referring MD: ?Villa Krause MD Medicines: ? [...] Krause MD GENERAL SURGICAL ORD ERABLES [employer]ATION documented in this encounter Visit Diagnoses Not on filedocumented in this encounter Administered Medications Inactive Administered Medications - up to 3 most recent administrations Medication Order MAR Action Action Date Dose Rate Site fentaNYL 50mcg/mL injection ONCE PRN, Starting on Mon01/07/14 at 1259, Until Mon01/07/14 at 1805, Pain, Intra-Operative (Intra-Procedure), Routine Given 01/07/2014 1:17 PM EDT 25 mcg Left Arm Given 01/07/2014 1:11 PM EDT 25 mcg Le ft Arm Given 01/07/2014 1:04 PM EDT 50 mcg Le ft Arm lactated ringers infusion 100 mL/hr, Intravenous, CONTINUOUS, Starting on Mon01/07/14 at 1215, Until Mon01/07/14 at 1805, Endoscopy (Day of Procedure) New Bag 01/07/2014 11:59 AM EDT 100 mL/hr 100 mL/hr midazolam (PF) (VERSED) 1 mg/mL injection ONCE PRN, Starting on Mon01/07/14 at 1259, Until Mon01/07/14 at 1805, Sleep, Intra-Operative (Intra-Procedure), Routine Given 01/07/2014 1:17 PM EDT 0.5 mg Left Arm Given 01/07/2014 1:11 PM EDT 1 mg Le ft Arm Given 01/07/2014 1:02 PM EDT 1 mg Le ft Arm documented in this encounter Active and Recently Administered Medications Times are shown in EDT. Continuous Medication Order 01/05/2014 01/06/2014 01/07/2014 lactated ringers infusion (CANCELED) 100 mL/hr, Intravenous, CONTINUOUS, Starting on Mon01/07/14 at 1215, Until Mon01/07/14 at 1805, Endoscopy (Day of Procedure) 1159 (New Bag - Prov ider: Carlos Hardy RN) PRN Medication Order 01/05/2014 01/06/2014 01/07/2014 fentaNYL [...] RN) documented in this encounter Care Teams Testing Specialist Relationship Specialty Start Date End Date Villa Krause MD [address] [place] [address] PCP - General 12/25/13 10/10/16 documented as of this encounter
--- OUTSIDE RECORDS SUMMARY | 2023-11-02 02:36 | XMS_ITS | Encounter Summary ---
Author Organization [facility] Address [address] [place] [address] Care Team Providers Care Wetlands Technician Name Role Phone Steph Schulz MD Primary Care Provider [phone] Encounter Details Date Type Department Care Team (Late st Contact Info) Description 12/25/2020 Lab Requisition [facility] Pathology & Laboratory Medicine - [facility] [address] [place], [place] [address] Outr Resulting Lab, Provider Social History Tobacco Use Types Packs/Day Years Used Date Smoking Tobacco: Never Assessed Sex and Gender Information Value Date Recorded Sex Assigned at Not on file Gender Identity Not on file Sexual Orientation Not on file documented as of this encounter Plan of Treatment Not on file documented as of this encounter Procedures Procedure Name Priority Date/Time Associated Diagnosis Comments PTH INTACT Routine 12/25/2020 9:09 EDT documented in this encounter Results * PTH INTACT (12/25/2020 9:09 EDT) Intact PTH 35 19 - 88 pg/mL 12/28/2020 11:45 EDT [facility] Blood VENOUS BLOOD / Unknown 12/25/2020 9:09 EDT 12/25/2020 16:06 EDT Provider Outr Resulting Lab CHEMISTRY & BLOOD GAS ORDERABLES [facility] [address] [place] [address] documented in this encounter Visit Diagnoses Not on filedocumented in this encounter Care Teams Wetlands Technician Relationship Specialty Start Date End Date Steph Schulz MD [address] [place] [address] PCP - General 04/02/12 documented as of this encounter
--- OUTSIDE RECORDS SUMMARY | 2023-11-02 02:36 | XMS_ITS | Encounter Summary ---
Author Organization [facility] Address [address] [place] [address] Care Team Providers Care Line Production Cook Name Role Phone Steph Schulz MD Primary Care Provider Encounter Details Date Type Department Care Team (Late st Contact Info) Description 05/08/2020 Lab Requisition [facility] Pathology & Laboratory Medicine - [facility] [address] [place], [place] [address] Outr Resulting Lab, Provider Social History Tobacco [...] Procedure Name Priority Date/Time Associated Diagnosis Comments PREALBUMIN Routine 05/07/2020 15:15 EST documented in this encounter Results * PREALBUMIN (05/07/2020 15:15 EST) Prealbumin 20 20 - 40 mg/dL 05/11/2020 11:09 EST [facility] Blood VENOUS BLOOD / Unknown 05/07/2020 15:15 EST 05/08/2020 15:47 EST Provider Outr Resulting Lab CHEMISTRY & BLOOD GAS ORDERABLES [facility] [address] [place] [address] documented in this encounter Visit Diagnoses Not on filedocumented in this encounter Care Teams Line Production Cook Relationship Specialty Start Date End Date Steph Schulz MD [address] [place] [address] PCP - General 04/02/12 documented as of this encounter
--- OUTSIDE RECORDS SUMMARY | 2023-11-02 02:36 | XMS_ITS | Encounter Summary ---
Author Organization [facility] Address [address] [place] [address] Care Team Providers Care Engineering Supplies Sales Name Role Phone Steph Schulz MD Primary Care Provider [phone] Encounter Details Date Type Department Care Team (Late st Contact Info) Description 04/14/2020 Lab Requisition [facility] Pathology & Laboratory Medicine - [facility] [address] [place], [place] [address] Outr Resulting Lab, Provider Social History Tobacco [...] Priority Date/Time Associated Diagnosis Comments PREALBUMIN Routine 04/13/2020 15:15 EST documented in this encounter Results * PREALBUMIN (04/13/2020 15:15 EST) Prealbumin 24 20 - 40 mg/dL 04/15/2020 9:40 EST [facility] Blood VENOUS BLOOD / Unknown 04/13/2020 15:15 EST 04/14/2020 15:54 EST Provider Outr Resulting Lab CHEMISTRY & BLOOD GAS ORDERABLES [facility] [address] [place] [address] documented in this encounter Visit Diagnoses Not on filedocumented in this encounter Care Teams Engineering Supplies Sales Relationship Specialty Start Date End Date Steph Schulz MD [address] [place] [address] PCP - General 04/02/12 documented as of this encounter
--- OUTSIDE RECORDS SUMMARY | 2023-11-02 02:36 | XMS_ITS | Encounter Summary ---
Author Organization [facility] Address [address] [place] [address] Care Team Providers Care Plug Making Operator Name Role Phone Steph Schulz MD Primary Care Provider [phone] Encounter Details Date Type Department Care Team (Late st Contact Info) Description 05/31/2019 Lab Requisition [facility] Pathology & Laboratory Medicine - [address] [address] Unknown, Provider, Social History Tobacco Use Types Packs/Day Years Used Date Smoking Tobacco: Never Assessed Sex and Gender Information Value Date Recorded Sex Assigned at Not on file Gender Identity Not on file Sexual Orientation Not on file documented as of this encounter Plan of Treatment Not on file documented as of this encounter Procedures Procedure Name Priority Date/Time Associated Diagnosis Comments IGE Routine 05/31/2019 11:40 EST documented in this encounter Results * IGE (05/31/2019 11:40 EST) IgE 15 <158 IU/mL 06/03/2019 11:20 EST [facility] Blood VENOUS BLOOD / Unknown 05/31/2019 11:40 EST 05/31/2019 16:47 EST Provider Unknown CHEMISTRY & BLOOD GA S ORDERABLES [facility] [address] [place] [address] documented in this encounter Visit Diagnoses Not on filedocumented in this encounter Care Teams Plug Making Operator Relationship Specialty Start Date End Date Steph Schulz MD [address] [place] [address] PCP - General 04/02/12 documented as of this encounter
--- OUTSIDE RECORDS SUMMARY | 2023-11-02 02:36 | XMS_ITS | Clinical Summary ---
Author Organization [facility] Address [address] [place] [address] Care Team Providers Care Petroleum Inspector Supervisor Name Role Phone Steph Schulz MD Primary Care Provider [phone] Social History Tobacco Use Types Packs/Day Years Used Date Smoking Tobacco: Never Assessed Sex and Gender Information Value Date Recorded Sex Assigned at Not on file Gender Identity Not on file Sexual Orientation Not on file Plan of Treatment Health Maintenance Due Date Last Done Comments Hepatitis C Screen 1945 RSV Immunization ( o r 60+ Years) (1 - 1-dose 60+ series) 2006 Fall Risk Screening 09/30/2011 COVID-19 Vaccine ( season) 2022 Care Teams Petroleum Inspector Supervisor Relationship Specialty Start Date End Date Steph Schulz MD [address] [place] [address] PCP - General 04/02/12
--- OUTSIDE RECORDS SUMMARY | 2023-11-02 02:36 | XMS_ITS | Encounter Summary ---
Author Organization [facility] Address [address] [place] [address] Care Team Providers Care Shaker Tender Name Role Phone Steph Schulz MD Primary Care Provider Encounter Details Date Type Department Care Team (Late st Contact Info) Description 03/04/2019 Lab Requisition [facility] Pathology & Laboratory Medicine - [facility] [address] [place] [address] Unknown, Provider, Social History Tobacco Use Types Packs/Day Years Used Date Smoking Tobacco: Never Assessed Sex and Gender Information Value Date Recorded Sex Assigned at Not on file Gender Identity Not on file Sexual Orientation Not on file documented as of this encounter Plan of Treatment Not on file documented as of this encounter Procedures Procedure Name Priority Date/Time Associated Diagnosis Comments ALPHA 1 ANTITRYPSIN Routine 03/04/2019 1 0:48 EST documented in this encounter Results * ALPHA 1 ANTITRYPSIN (03/04/2019 10:48 EST) Alpha 1 Antitrypsin 152 90 - 200 mg/dL 03/05/2019 10:[address] [facility] Blood VENOUS BLOOD / Unknown 03/04/2019 10:48 EST 03/04/2019 15:40 EST Provider Unknown CHEMISTRY & BLOOD GA S ORDERABLES [facility] [address] [place] [address] documented in this encounter Visit Diagnoses Not on filedocumented in this encounter Care Teams Shaker Tender Relationship Specialty Start Date End Date Steph Schulz MD [address] [place] [address] PCP - General 04/02/12 documented as of this encounter
--- OUTSIDE RECORDS SUMMARY | 2023-11-02 02:36 | XMS_ITS | Referral Summary ---
Author Organization [facility] Address [address] [place] [address] Care Team Providers Care Museum Or Zoo Director Name Role Phone Steph Schulz MD Primary Care Provider [phone] Social History Tobacco Use Types Packs/Day Years Used Date Smoking Tobacco: Never Assessed Sex and Gender Information Value Date Recorded Sex Assigned at Not on file Gender Identity Not on file Sexual Orientation Not on file Plan of Treatment Not on file Care Teams Museum Or Zoo Director Relationship Specialty Start Date End Date Steph Schulz MD [address] [place] [address] PCP - General 04/02/12
--- OUTSIDE RECORDS SUMMARY | 2023-11-02 02:36 | XMS_ITS | Encounter Summary ---
Author Organization [facility] [place] [address] Care Team Providers Care Manager Creative Services Name Role Phone Steph Schulz MD Primary Care Provider [phone] Reason for Visit * Reason Comments Skin Check spot on arm Encounter Details Date Type Department Care Team (Late st Contact Info) Description 11/11/2010 5:15 PM EDT [place] [address] Estela Velasquez MD [facility] [place] [address] Seborrheic keratosis (Primary Dx); Lentigo; Multiple pigmented nevi Discharge Disposition: Home Social History Tobacco Use Types Packs/Day Years Used Date Smoking Tobacco: Never Sex and Gender Information Value Date Recorded Sex Assigned at Not on file Gender Identity Not on file Sexual Orientation Not on file documented as of this encounter Progress Notes * Estela Velasquez MD - 11/11/2010 5:19 PM EDT DERMATOLOGY ESTABLISHED PATIENT CLINIC NOTE Date of service: 11/11/2010 Linda Serrano : 1945 Provider: Estela Velasquez MD PROBLEM: Skin Exam SKIN HISTORY: [facility] back January 2010 Lentigines HPI Ms. Serrano is a 65 y.o. year old female Here for a pigmented lesion exam with concerns of a 6 week history dark brown macule on the left forearm. ADR: House dust MEDS: Current outpatient prescriptions ordered prior to encounter Medication Sig Dispense Refill ??? CIS Free Text Med - Calcium [...] were not examined. Significant skin findings: A. 0.6cm brown papules with waxy, stuck-on appearance. Milia-like cysts, comedone-like openings and/or fissuring on dermoscopy on the left forearm B. 0.3-0.6cm light-brown evenly pigmented, well-demarcated macule C. Multiple, 0.3-0.5cm, medium-brown, evenly-pigmented macules and papules. All with regular pigment pattern on dermoscopy. No pigmented lesions suspicious for melanoma. ASSESSMENT/PLAN: A. SK'-reassured B. Lentigines Sun avoidance, protective clothing and the use of SPF 30 sunscreen is advised. Observe closely for skin changes and call if such occurs. C. Benign Nevi D. RTC 1 yr Note initiated by: Rosa Teran LPN Routed to physician for review and changes: Estela Velasquez MD Section of Dermatology [facility] documented in this encounter Plan of Treatment Upcoming Encounters Date Type Department Care Team (Late st Contact Info) Description 11/02/2023 1:00 PM EDT Office Visit Hematology/Oncology at [address] [phone] Mary Nails APRN [address] [place] [address] MEDICAL ONCOLOGY [place], [place] [id number] 11/02/2023 1:30 PM EDT Infusion Hematology Oncology at [address] [phone] documented as of this encounter Visit Diagnoses Diagnosis Seborrheic keratosis- Primary Other seborrheic keratosis Lentigo Other dyschromia Multiple pigmented nevi Benign neoplasm of skin, site unspecified documented in this encounter Care Teams Manager Creative Services Relationship Specialty Start Date End Date Steph Schulz MD [address] [place] [address] PCP - General 03/09/10 12/24/13 documented as of this encounter
--- OUTSIDE RECORDS SUMMARY | 2023-11-02 02:36 | XMS_ITS | Encounter Summary ---
Author Organization [facility] Address [address] [place] [address] Care Team Providers Care Cleaner Furniture Name Role Phone Steph Schulz MD Primary Care Provider [phone] Encounter Details Date Type Department Care Team (Late st Contact Info) Description 11/23/2020 Lab Requisition [facility] Pathology & Laboratory Medicine - [facility] [address] [place], [place] [address] Outr Resulting Lab, Provider Social History Tobacco [...] Procedure Name Priority Date/Time Associated Diagnosis Comments ACUTE HEPATITIS PROFILE Routine 11/20/2020 8:15 EDT documented in this encounter Results * ACUTE HEPATITIS PROFILE (11/20/2020 8:15 EDT) Hep B Surface Ag Negative Negative 11/24/2020 10:12 EDT [facility] Hep C Antibody Negative Negative 11/24/2020 10:12 EDT [facility] Hepatitis A Antibody, IgM Negative Negative 11/24/2020 10:12 EDT [facility] Comment:The results of this assay can be falsely lowered due to the consumption of Biotin. Hepatitis B Core Ab, Total Negative Negative 11/24/2020 10:12 EDT [facility] Blood VENOUS BLOOD / Unknown 11/20/2020 8:15 EDT 11/23/2020 20:33 EDT Provider Outr Resulting Lab CHEMISTRY & BLOOD GAS ORDERABLES [facility] [address] [place] [address] documented in this encounter Visit Diagnoses Not on filedocumented in this encounter Care Teams Cleaner Furniture Relationship Specialty Start Date End Date Steph Schulz MD [address] [place], [place] [id number] PCP - General 04/02/12 documented as of this encounter
--- OUTSIDE RECORDS SUMMARY | 2023-11-02 02:36 | XMS_ITS | Encounter Summary ---
Author Organization [facility] Address [facility] [place] [address] Care Team Providers Care Tile Molder Name Role Phone Steph Schulz MD Primary Care Provider [phone] Encounter Details Date Type Department Care Team (Latest Contact Info) Description 03/26/2012 12:32 PM EST - 03/26/2012 11:59 PM [facility] Hospital Encounter XRay at [address] [place] [phone] CLINIC, Steph Cason MD [address] [place], [place] [id number] Discharge Disposition: Home Social History Tobacco Use [...] PM EDT Office Visit Hematology/Oncology at [address] [phone] Mary Nails JINRIKSHA DRIVER [address] [place] [address] MEDICAL ONCOLOGY [place], [place] [phone] 11/02/2023 1:30 PM EDT Infusion Hematology Oncology at [address] [phone] documented as of this encounter Procedures Procedure Name Priority Date/Time Associated Diagnosis Comments DXA CENTRAL SPINE, HIP, AND/OR WHOLE BODY (GENERIC) Routine 03/26/2012 1:38 PM EST documented in this encounter Results * Dexa central-spine, hip, and/or whole body (03/26/2012 1:38 PM EST) Anatomical Region Laterality Modality C-spine, Hip N/A Radiographic Jaqueline ging 03/26/2012 1:38 PM EST Narrative 03/27/2012 4:18 PM EST Examination DXA CENTRAL-SPINE,HIP, AND/OR WHOLE BODY Clinical History LAST DEXA 10/05/2005;ESTROGEN DEFICIENT, HX BRCA, POSTMENOPAUSAL, COMPRESSION FX VERTEBRAL FRACTURES Technique Scans were acquired at the lumbar spine, left hip. ?? Findings Lowest T-score at a diagnostic region of interest: T-score: -2.0,CATARINO: Femoral neck, WHO diagnosis: Osteopenia or low bone mass ........Comparison......... Recent scan: 10/05/2005, Baseline scan: 12/18/2001 Total Hip: Compared to the most recent scan, decreased 3.7 %. ?? Compared to the baseline scan, not significantly changed. ?? Total spine: Compared to the most recent scan, not significantly changed. Compared to the baseline scan, not significantly changed. ?? Impression There has been a small decrease in bone density at the left total hip region of interest. Osteopenia or low bone mass by World Health organization criteria. _ Estimating Fracture Risk: The relationship between bone [...] from the tool's estimate. The tool does note take into account the dose-response associated with [...] BMD measurements and plots are available in Reacción under the imaging tab. Paper copies will be sent to providers without Reacción access. If you have received this report without the data sheet and do not have access to Reacción, please contact Radiology Bike Designer at [phone] Monday thru Monday 8am-4pm. Procedure Note Wesley Fierro MD - 03/27/2012 Examination DXA CENTRAL-SPINE,HIP, AND/OR WHOLE BODY Clinical History LAST DEXA 10/05/2005;ESTROGEN DEFICIENT, HX BRCA, POSTMENOPAUSAL,COMPRESSION FX VERTEBRAL FRACTURES Technique Scans were acquired at the lumbar spine, left hip. Findings Lowest T-score at a diagnostic region of interest: T-score: -2.0,CATARINO: Femoral neck, WHO diagnosis: Osteopenia or low bonemass ........Comparison......... Recent scan: 10/05/2005, Baseline scan: 12/18/2001 Total Hip: Compared to the most recent scan, decreased 3.7 %. Compared to the baseline scan, not significantly changed. Total spine: Compared to the most recent scan, not significantly changed. Compared to the baseline scan, not significantly changed. Impression There has been a small decrease in bone density at the left total hipregion of interest. Osteopenia or low bone mass by World Health organization criteria. _ Estimating Fracture Risk: The relationship between bone mineral density (BMD) and risk of fractureis well established. As BMD decreases, risk increases. Quantifying risk is difficult and is usually limited to estimation of the relative risk - aterm which may have limited value when trying to discuss an individual's risk. Estimating the absolute risk for a patient requires an understanding ofthe incidence rate in a given population and consideration of multiple,partially independent, risk factors in addition to BMD. The World Health Organization (WHO) has developed a fracture riskprediction tool that calculates a ten-year risk of major osteoporotic fracture basedon femoral neck bone density measurements and nine clinical risk factors for individuals who have not been treated for osteoporosis. This is available through an interactive web-based interface (http://www.shef.ac.uk/FRAX/)and can be used to estimate a given patient's absolute risk of majorosteoporotic fracture or hip fracture over the next 10 years. These estimates may prove useful when discussing risk with a patient. It is important, however, to understand the tool's limitations and how a given individual's risk might differ from the tool's estimate. The tool does note take into account the dose-response associated with most risk factors. For example, thesignificant increase in risk associated with multiple prior fractures compared to asingle prior fracture is not taken into account. Similarly, the location of aprevious fracture, the amount of glucocorticoids and number of cigarettes smokedare not considered. These limitations are discussed in a Frequently AskedQuestions section of the FRAX website which you are encouraged to review. DEXA data sheets with BMD measurements and plots are available in E-DHunder the imaging tab. Paper copies will be sent to providers without E-DHaccess. If you have received this report without the data sheet and do not haveaccess to E-DH, please contact Radiology Bike Designer at [phone] Mondaythru Monday 8am-4pm. Steph Schulz MD IMG DEXA ORDERABLES documented in this encounter Visit Diagnoses Not on filedocumented in this encounter Care Teams Tile Molder Relationship Specialty Start Date End Date Steph Schulz MD [address] [place] [address] PCP - General 03/09/10 12/24/13 documented as of this encounter
--- OUTSIDE RECORDS SUMMARY | 2023-11-02 02:36 | XMS_ITS | Encounter Summary ---
Author Organization [facility] Address [address] [place] [address] Care Team Providers Care Running Rigger Name Role Phone Steph Schulz MD Primary Care Provider [phone] Encounter Details Date Type Department Care Team (Late st Contact Info) Description 05/01/2020 Lab Requisition [facility] Pathology & Laboratory Medicine - [facility] [address] [place], [place] [address] Outr Resulting Lab, Provider Social History Tobacco [...] Priority Date/Time Associated Diagnosis Comments PREALBUMIN Routine 04/30/2020 16:15 EST documented in this encounter Results * PREALBUMIN (04/30/2020 16:15 EST) Prealbumin 24 20 - 40 mg/dL 05/04/2020 9:28 EST [facility] Blood VENOUS BLOOD / Unknown 04/30/2020 16:15 EST 05/01/2020 17:28 EST Provider Outr Resulting Lab CHEMISTRY & BLOOD GAS ORDERABLES [facility] [address] [place] [address] documented in this encounter Visit Diagnoses Not on filedocumented in this encounter Care Teams Running Rigger Relationship Specialty Start Date End Date Steph Schulz MD [address] [place] [address] PCP - General 04/02/12 documented as of this encounter
--- OUTSIDE RECORDS SUMMARY | 2023-11-02 02:36 | XMS_ITS | Encounter Summary ---
Author Organization [facility] Address [address] [place] [address] Care Team Providers Care Dance Historian Name Role Phone Unavailable Primary Care Provider Unavailabl e Encounter Details Date Type Department Care Team (Late st Contact Info) Description 06/12/2006 Results Only [facility] [place] [facility] [address] [place] [address] Steph Saravia MD [address] [place], [place] [phone] Social History Tobacco Use Types Packs/Day Years Used Date Smoking Tobacco: Never Assessed Sex and Gender Information Value Date Recorded Sex Assigned at Not on file Gender Identity Not on file Sexual Orientation Not on file documented as of this encounter Plan of Treatment Not on file documented as of this encounter Procedures Procedure Name Priority Date/Time Associated Diagnosis Comments CYTOPATHOLOGY Routine 06/12/2006 0:00 EST documented in this encounter Results * CYTOPATHOLOGY (06/12/2006 0:00 EST) Pathology Report: CYTOPATHOLOGY REPORT Reports generated via electronic interface contain original data; however they are lacking the format of the original report. Caution should be taken when reading/interpreti ng unformatted reports. Name: ? LINDA ABEL ? Accession #: ? [id number] : ? 1945 (Age: 60) ??F ?Collect Date: ? 06/12/2006 Location: ? [facility] ? Receive Date: ? 06/14/2006 Provider: ?STEPH SARAVIA MD Copy to: ? Specimen/Source: ?ThinPrep Pap Test, Cervix/Endocervix, processed on [employer] ThinPrep Imaging System, with manual evaluation Last Menstrual Period: ? Menstrual/Pregnanc y Status: ? Post Menopausal Other: ? HPVA - HPV testing requested if ASC-US on the current ThinPrep Pap test. ? SPECIMEN ADEQUACY ? Satisfactory for Evaluation - transformation zone component absent GENERAL CATEGORIZATION ? Negative for Intraepithelial Lesion or Malignancy ? Document reviewed and electronically signed by: ? Steph Sesay, YOBANY(ASCP) ? Report Date: ??06/15/2006 12:28 End of Report HANK RAMIRES 06/12/2006 06/14/2006 Steph Saravia MD PATHOLOGY ORDERABLES Performing Organization Address City/State/[facility] Co de Phone Number HANK RAMIRES [address] [place] [address] documented in this encounter Visit Diagnoses Not on filedocumented in this encounter
--- OUTSIDE RECORDS SUMMARY | 2023-11-02 02:36 | XMS_ITS | Encounter Summary ---
Author Organization [facility] Address [address] [place] [address] Care Team Providers Care Fiberglass Finisher Name Role Phone Unavailable Primary Care Provider Unavailabl e Encounter Details Date Type Department Care Team (Late st Contact Info) Description 03/30/2012 Results Only [facility] Laboratory Services - [facility] ([facility] [address] [place], [place] [address] Rasheed Goff, [address] [facility] [address] [place], [place] [phone] Social History Tobacco Use Types Packs/Day Years Used Date Smoking Tobacco: Never Assessed Sex and Gender Information Value Date Recorded Sex Assigned at Not on file Gender Identity Not on file Sexual Orientation Not on file documented as of this encounter Plan of Treatment Not on file documented as of this encounter Procedures Procedure Name Priority Date/Time Associated Diagnosis Comments SURGICAL PATHOLOGY Routine 03/30/2012 0:00 EST documented in this encounter Results * SURGICAL PATHOLOGY (03/30/2012 0:00 EST) Pathology Report: SURGICAL PATHOLOGY REPORT Reports generated via electronic interface contain original data; however they are lacking the format of the original report. Caution should be taken when reading/interpreting unformatted reports. Name: ? LINDA ABEL ? Accession #: ? [id number] ? : ? 1945 (Age: 66) ??F ? Collect Date: ? 03/30/2012 ? Location: ? [facility] ? Receive Date: ? 03/30/2012 ? Provider: RASHEED GOFF DO Copy to: ERROL SARAVIA MD ? Final Pathologic Diagnosis: A. ?Stomach, antrum, biopsies: 1. ?Antral-type mucosa with mild reactive changes; otherwise, no specific pathologic features. 2. ? No Helicobacter pylori-like microorganisms identified on H&E-stained sections. ?? B. ?Stomach, body, biopsies: 1. ?Oxyntic-type mucosa with no specific pathologic features. 2. ? No Helicobacter pylori-like microorganisms identified on H&E-stained sections. ?? C. ?Esophagus, distal, biopsies: 1. ?Squamocolumnar junctional mucosa with acute and chronic inflammation and squamous intraepithelial eosinophils (peak count 2 eosinophils/HPF), suggestive of reflux esophagitis. ?? 2. ? PAS-amylase is negative for fungal organisms. 3. ? Immunostaining for Helicobacter pylori is negative. ??See comment. ?? Comment: ? Immunohistochemical staining was performed on this case to further characterize the lesion. ??Positive and negative controls stained appropriately. (Dr. Holloway)/katerinen Block ?Antibody (Clone) ? Result ? C ?H. pylori (polyclonal, [facility]) ? Negative ? NOTE: ??One or more of the reagents used in immunohistochemical testing in this case may not have been cleared or approved by the U.S. Food and Drug Administration (FDA). ??The FDA has determined that such clearance or approval is not necessary. ??These tests are used for clinical purposes. ??They should not be regarded as investigational or for research. ??These reagents' performance characteristics have been determined by [facility]. ??This laboratory is certified under the Clinical Laboratory Improvement Amendments of 1988 (CLIA-88) as qualified to perform high complexity clinical laboratory testing. ?? Document reviewed and electronically signed by: LUPILLO HOLLOWAY MD Report ??Date: 04/05/2012 09:47 By the signature above, the attending physician certifies that he/she has personally conducted a gross and/or microscopic examination of the described specimens and rendered or confirmed the above diagnosis. Specimen(s) Received: A. ?Antrum B. ? Body C. ? Distal esophagus ? Clinical History: ? Persistent epigastric discomfort. ??Resolves with PPI but returns off medication Gross Description: ? Received in formalin labelled Maggie, Linda and antrum are two portions of serrano soft tissue which measure 0.6 x 0.1 x 0.1 cm and 0.3 x 0.2 x 0.1 cm, submitted entirely as (A). Received in formalin labelled Maggie, Linda and body are two portions of serrano soft tissue which measure 0.6 x 0.2 x 0.2 cm and 0.4 x 0.2 x 0.2 cm, submitted entirely as (B). Received in formalin labelled Maggie, Linda and distal esophagus are three portions of white and serrano soft tissue which range from 0.2 x 0.2 x 0.2 cm to 0.4 x 0.2 x 0.2 cm, submitted entirely as (C). ??(Dr. Goetz)/[facility] End of Report HANK RAMIRES 03/30/2012 03/30/2012 16: 20 EST Rasheed Goff DO PATHOLOGY ORDER [facility] [address] [place] [address] documented in this encounter Visit Diagnoses Not on filedocumented in this encounter
--- OUTSIDE RECORDS SUMMARY | 2023-11-02 02:36 | XMS_ITS | Encounter Summary ---
Author Organization [facility] Address [address] [place] [id number] Care Team Providers Care Gun Welder Name Role Phone Steph Schulz MD Primary Care Provider [phone] Encounter Details Date Type Department Care Team (Late st Contact Info) Description 10/07/2019 Lab Requisition [facility] Pathology & Laboratory Medicine - [facility] [address] [place], [place] [address] Outr Resulting Lab, Provider Social History Tobacco [...] Procedure Name Priority Date/Time Associated Diagnosis Comments ZZCOVID-19 TEST [facility] PCR Today 10/07/2019 11:12 EDT COVID-19 TESTING Routine 10/07/2019 11:1 2 EDT documented in this encounter Results * COVID-19 TEST [facility] PCR (10/07/2019 11:12 EDT) Swab ENTIRE NASOPHARYNX / Unknown 10/07/2019 11:12 EDT 10/07/2019 15:44 EDT Provider Outr Resulting Lab MICROBIOLOGY - GENERAL ORDERABLES [facility] [address] [place] [address] * COVID-19 TESTING (10/07/2019 11:12 EDT) COVID-19 rt-PCR Result Negative Negative 10/07/2019 21:40 EDT [facility] Comment: This test has not been FDA cleared or approved. This test has been authorized by FDA under an EUA for use by authorized laboratories. This test has been authorized only for detection of nucleic acid from 2019-nCoV, not for any other viruses or pathogens. This test is only authorized for the duration of the declaration that circumstances exist justifying the authorization of emergency use of in vitro diagnostic tests for detection and/or diagnosis of 2019-nCoV under section 564(b)(1) of Act, 21 U.S.C ?? 360bbb-3(b) (1), unless the authorization is terminated or revoked sooner. Negative results do not preclude 2019-nCoV infection and should not be used as the sole basis for treatment or other patient management decisions. Negative results must be combined with clinical observations, patient history, and epidemiological information. Performed on the Chartio Fusion instrument Performing Lab [facility] Lab 10/07/2019 21:40 EDT [facility] Swab 10/07/2019 11:1 2 EDT 10/07/2019 15:44 EDT Provider Outr Resulting Lab MICROBIOLOGY - GENERAL ORDERABLES [facility] [address] [place] [address] documented in this encounter Visit Diagnoses Not on filedocumented in this encounter Care Teams Gun Welder Relationship Specialty Start Date End Date Steph Schulz MD [address] [place] [address] PCP - General 04/02/12 documented as of this encounter
--- OUTSIDE RECORDS SUMMARY | 2023-11-02 02:36 | XMS_ITS | Encounter Summary ---
Author Organization [facility] Address [address] [place] [address] Care Team Providers Care Sandwich And Drink Cart Operator Name Role Phone Steph Schulz MD Primary Care Provider [phone] Encounter Details Date Type Department Care Team (Late st Contact Info) Description 04/24/2020 Lab Requisition [facility] Pathology & Laboratory Medicine - [facility] [address] [place], [place] [address] Outr Resulting Lab, Provider Social History Tobacco [...] Priority Date/Time Associated Diagnosis Comments PREALBUMIN Routine 04/23/2020 15:30 EST documented in this encounter Results * PREALBUMIN (04/23/2020 15:30 EST) Prealbumin 23 20 - 40 mg/dL 04/27/2020 10:00 EST [facility] Blood VENOUS BLOOD / Unknown 04/23/2020 15:30 EST 04/24/2020 15:48 EST Provider Outr Resulting Lab CHEMISTRY & BLOOD GAS ORDERABLES [facility] [address] [place] [address] documented in this encounter Visit Diagnoses Not on filedocumented in this encounter Care Teams Sandwich And Drink Cart Operator Relationship Specialty Start Date End Date Steph Schulz MD [address] [place] [address] PCP - General 04/02/12 documented as of this encounter
--- OUTSIDE RECORDS SUMMARY | 2023-11-02 02:36 | XMS_ITS | Encounter Summary ---
Author Organization [facility] Address [facility] Pamela altamirano [place] [id number] Care Team Providers Care Operations Intern Name Role Phone Steph Schulz MD Primary Care Provider [phone] Reason for Visit * Reason Comments Skin Check Encounter Details Date Type Department Care Team (Late st Contact Info) Description 12/22/2011 10:45 AM EDT [place] [address] Estela Velasquez MD [facility] DR [facility] [place] [address] Multiple pigmented nevi (Primary Dx); Solar lentigo Discharge Disposition: Home Social History Tobacco Use Types Packs/Day Years Used Date Smoking Tobacco: Never Sex and Gender Information Value Date Recorded Sex Assigned at Not on file Gender Identity Not on file Sexual Orientation Not on file documented as of this encounter Progress Notes * Estela Velasquez MD - 12/22/2011 10:39 AM EDT DERMATOLOGY ESTABLISHED PATIENT CLINIC NOTE Date of service: 12/22/2011 Linda Serrano : 1945 Provider: Estela Velasquez MD PROBLEM: Full skin check SKIN HISTORY: [facility] back January 2010 Lentigines HPI Ms. Serrano is a 66 y.o. year old female here today for a full skin check. C/o a mole on her R axilla ADR: House dust MEDS: Current outpatient prescriptions ordered prior to encounter Medication Sig Dispense Refill ??? CIS Free Text Med - Calcium 600 with Vitamin D2 ??? CIS Free Text Med - Albuterol 1 Puff(s), Inh, PRN ??? multivitamin (THERAGRAN) tablet ??? vitamin E 400 unit capsule ??? Ascorbic Acid (VITAMIN C) 500 mg TbSR ??? FLUTICASONE PROPIONATE (FLOVENT HFA INHL) ??? hydrochlorothiazide (HYDRODIURIL) 25 mg tablet 25 mg, PO, Once daily ??? alendronate (FOSAMAX) 70 mg tablet 70 MG = 1 Tablet(s), PO, QWEEK ROS General: feeling well Skin: denies other [...] were not examined. Significant skin findings: A. 0.3-0.6cm light-brown evenly pigmented, well-demarcated macule B. Multiple, 0.3-0.5cm, medium-brown, evenly-pigmented macules and papules. All with regular pigment pattern on dermoscopy. No pigmented lesions suspicious for melanoma. C. 0.2 cm dark brown macule on L dorsal foot ASSESSMENT/PLAN: A. Diffuse lentigines, Sun avoidance, protective clothing and the use of SPF 30 sunscreen is advised. Observe closely for skin changes and call if such occurs. B. Rare benign nevi on axilla and back C. Recheck in one year , pt states it has been there for years and not changing D. RTC in one year Note initiated by: PATRICIA ROGERS LPN Routed to physician for review and changes: Estela Velasquez MD Section of Dermatology [facility] documented in this encounter Plan of Treatment Upcoming Encounters Date Type Department Care Team (Late st Contact Info) Description 11/02/2023 1:00 PM EDT Office Visit Hematology/Oncology at [address] [phone] Mary Nails APRN [address] [place] [address] DR MEDICAL ONCOLOGY [place], [place] [id number] 11/02/2023 1:30 PM EDT Infusion Hematology Oncology at [address] [phone] documented as of this encounter Visit Diagnoses Diagnosis Multiple pigmented nevi- Primary Benign neoplasm of skin, site unspecified Solar lentigo Other dyschromia documented in this encounter Care Teams Operations Intern Relationship Specialty Start Date End Date Steph Schulz MD [address] [place] [address] PCP - General 03/09/10 12/24/13 documented as of this encounter
--- OUTSIDE RECORDS SUMMARY | 2023-11-02 02:36 | XMS_ITS | Encounter Summary ---
Author Organization [facility] [place] [address] Care Team Providers Care Rfid Engineer Name Role Phone Steph Schulz MD Primary Care Provider [phone] Encounter Details Date Type Department Care Team (Latest Contact Info) Description 03/07/2011 10:44 AM EST - 03/07/2011 11:59 PM EST Hospital [place] [address] CLINIC, Steph Cason MD [address] [place], [place] [id number] Discharge Disposition: Home Social History Tobacco Use Types Packs/Day Years Used Date Smoking Tobacco: Never Sex and Gender Information Value Date Recorded Sex Assigned at Not on file Gender Identity Not on file Sexual Orientation Not on file documented as of this encounter Medications at Time of Discharge Medication Sig Dispensed Refills Start Date End Date CIS Free Text Med - Calcium 600 [...] PM EDT Office Visit Hematology/Oncology at [address] [phone] Mary Nails APRN [address] [place] [address] [place] [address] 11/02/2023 1:30 PM EDT Infusion Hematology Oncology at [address] [phone] documented as of this encounter Procedures Procedure Name Priority Date/Time Associated Diagnosis Comments MAMMO UNILATERAL DIGITAL SCREENING Routine 03/07/2011 11:00 AM EST documented in this encounter Results * MAMMO UNILATERAL DIGITAL SCREENING (03/07/2011 11:00 AM EST) Anatomical Region Laterality Modality Breast N/A Mammography 03/07/2011 11:0 0 AM EST Narrative 03/11/2011 7:59 AM EST LEFT BREAST MAMMOGRAPHY ?? REASON FOR EXAM: Screening. S/P mastectomy for Right breast cancer. ?? TECHNIQUE: Cranio-caudal (CC) and mediolateral oblique (MLO) views of the Left breast obtained with direct digital capture. The exam was evaluated by CAD Version 8.3.17. ?? FINDINGS: This is a negative mammogram (ACR Category 1). There is a stable fibroglandular pattern without significant change as compared to prior studies. There is no mammographic evidence of cancer. ? The breast is of scattered density. ? CONCLUSION ?? This is a NEGATIVE mammogram (ACR Category 1). Routine screening mammography is recommended with the frequency dependent on the patient's age and breast cancer risk factors. ?? A letter has been sent to this patient [facility]. Procedure Note Loida Kenney MD - 03/11/2011 LEFT BREAST MAMMOGRAPHY REASON FOR EXAM: Screening. S/P mastectomy for Right breast cancer. TECHNIQUE: Cranio-caudal (CC) and mediolateral oblique (MLO) views of theLeft breast obtained with direct digital capture. The exam was evaluated by CAD Version 8.3.17. FINDINGS: This is a negative mammogram (ACR Category 1). There is a stable fibroglandular pattern without significant change as compared to priorstudies. There is no mammographic evidence of cancer. The breast is of scattered density. CONCLUSION This is a NEGATIVE mammogram (ACR Category 1). Routine screeningmammography is recommended with the frequency dependent on the patient's age and breastcancer risk factors. A letter has been sent to this patient by the [facility]. Steph Schulz MD IMG MAMMO ORDERABLES documented in this encounter Visit Diagnoses Not on filedocumented in this encounter Care Teams Rfid Engineer Relationship Specialty Start Date End Date Steph Schulz MD [address] [place] [address] PCP - General 03/09/10 12/24/13 documented as of this encounter
--- OUTSIDE RECORDS SUMMARY | 2023-11-02 02:36 | XMS_ITS | Encounter Summary ---
Author Organization [facility] Address [address] [place] [address] Care Team Providers Care Screw Machine Adjuster Automatic Name Role Phone Steph Schulz MD Primary Care Provider [phone] Encounter Details Date Type Department Care Team (Late st Contact Info) Description 10/01/2019 Lab Requisition [facility] Pathology & Laboratory Medicine - [facility] [address] [place], [place] [address] Outr Resulting Lab, Provider Social History Tobacco [...] Comments ZZCOVID-19 TEST [facility] PCR Today 10/01/2019 11:40 EDT COVID-19 TESTING Routine 10/01/2019 11:4 0 EDT documented in this encounter Results * COVID-19 TEST [facility] PCR (10/01/2019 11:40 EDT) Swab ENTIRE NASOPHARYNX / Unknown 10/01/2019 11:40 EDT 10/01/2019 15:43 EDT Provider Outr Resulting Lab MICROBIOLOGY - GENERAL ORDERABLES [facility] [address] [place] [address] * COVID-19 TESTING (10/01/2019 11:40 EDT) COVID-19 rt-PCR Result Negative Negative 10/01/2019 20:43 EDT [facility] Comment: This test has [...] history, and epidemiological information. Performed on the JumpCloud Fusion instrument Performing Lab [place] [facility] Lab 10/01/2019 20:43 EDT [facility] Swab ENTIRE NASOPHARYNX / Unknown 10/01/2019 11:40 EDT 10/01/2019 15:43 EDT Provider Outr Resulting Lab MICROBIOLOGY - GENERAL ORDERABLES [facility] [address] [place] [address] documented in this encounter Visit Diagnoses Not on filedocumented in this encounter Care Teams Screw Machine Adjuster Automatic Relationship Specialty Start Date End Date Steph Schulz MD [address] [place] [id number] PCP - General 04/02/12 documented as of this encounter
[2023-11-02 12:33] LABS: HCT 39.3 % (36.0-46.0); HGB 13.3 g/dL (11.2-15.7); MCH 30.9 pg (27.0-33.0); MCHC 33.8 % (32.0-36.0); MCV 91 fL (80-95); MPV 9.7 fL (8.0-11.0); Platelet Count 266 10^3/uL (130-400); RBC 4.31 10^6/uL (3.93-5.22); RDW 12.2 % (11.7-14.6); WBC 8.57 10^3/uL (4.4-10.8)
[2023-11-02 12:49] LABS: Hemoglobin A1C 6.3 % (<5.7)
[2023-11-02 13:28] LABS: ALT 52 U/L (14-59); AST 34 U/L (15-37); Albumin 3.8 g/dL (3.4-5.0); Alkaline Phosphatase 103 U/L (46-116); Anion Gap 9.7 mmol/L (3-11); BUN 18 mg/dL (7-18); Bilirubin, Total 0.57 mg/dL (0.2-1.0); CO2 27.3 mmol/L (21.0-32.0); CREATININE 0.8 mg/dL (0.55-1.02); Calcium 9.2 mg/dL (8.5-10.1); Chloride 102 mmol/L (98-107); Estimated GFR 75.84 (mL/min/1.73m2); Ferritin 45 ng/mL (8-252); Glucose 106 mg/dL (74-106); Potassium 3.8 mmol/L (3.5-5.1); Sodium 139 mmol/L (136-145); Total Protein 6.7 g/dL (6.4-8.2)
[2023-11-02 13:45] LABS: Vitamin D 25 Total 27.6 ng/mL (30-100)
[2023-11-03 13:15] LABS: HBs Antibody, Quant <3.1 mIU/mL (See Note); HIV-1/2 Ag & Ab Screen Negative (Negative); Hep B Surface Ab Negative (See Note); Hepatitis B Core Antibody Negative (Negative); Hepatitis B Surface Antigen Negative (Negative)
== END 2023-11-02 02:25 | disposition home or self-care (01) ==
PROVIDERS: Internal Medicine Hematology & Oncology; PCP Nurse Practitioner Family; Visit Provider Nurse Practitioner Family
DX: Z11.4 Encounter for screening for human immunodeficiency virus [HIV] (principal); Z90.410 Acquired total absence of pancreas; Z90.49 Acquired absence of other specified parts of digestive tract; Z85.3 Personal history of malignant neoplasm of breast; R79.89 Other specified abnormal findings of blood chemistry; D49.0 Neoplasm of unspecified behavior of digestive system; R73.03 Prediabetes; M81.0 Age-related osteoporosis without current pathological fracture; Z11.59 Encounter for screening for other viral diseases; C50.912 Malignant neoplasm of unspecified site of left female breast; Z17.0 Estrogen receptor positive status [ER+]; Z79.811 Long term (current) use of aromatase inhibitors; M85.80 Other specified disorders of bone density and structure, unspecified site
CPT/HCPCS: 36415; 80053; 82306; 85027; 86704; 86706; 87340; 87389; 82728; 83036

== ENCOUNTER → 2024-01-18 11:19 | Outpatient (BNVA) | payer MEDICARE, BC, SELFPAY | PROVIDERS: PCP Nurse Practitioner Family; Referring Provider Nurse Practitioner Family; Visit Provider Physical Therapy Assistant | DX: Z12.11 Encounter for screening for malignant neoplasm of colon (principal) ==

== ENCOUNTER 2024-02-08 06:07 | Day surgery (SDC) | payer MEDICARE, BC, SELFPAY ==
[2024-02-08 06:25] VITALS: BP 132/78; PULSE 65; RESP 20; TEMP 36.8; O2SAT 97
[2024-02-08] MEDS: Lactated Ringers 1,000 ML 80 ML IV (06:46)
--- NOTE | 2024-02-08 07:10 | W.ANESPRE ---
General Info Date of Service Date Performed: 02/08/24 Height: 5 ft 1 in Weight: 46.4 kg Body Mass Index (BMI): 19.3 Surgical Procedure: Operation Date: 02/08/24 07:35 Proposed Procedure Side Surgeon rodrigo Mane MD Meds Allergies and Home Medications Allergies Allergy/AdvReac Type Severity Reaction Status Date / Time house dust mite Allergy Asthma Verified 02/08/24 06:21 pollen extracts Allergy Asthma Verified 02/08/24 06:21 Home Medication ?Medication ?Instructions ?Recorded aspirin 81 mg tablet,delayed 81 mg PO DAILY 11/21/12 release (Ecotrin Low Strength) vitamin B complex (B-Complex 1 ea PO DAILY 01/28/13 tablet) vsdweyuz-oegn-utvm 8 mg-folic 400 1 tab PO DAILY 04/19/18 mcg-K 50 mcg-lutein 300 mcg tablet (Centrum Silver Women) vitamin E 268 mg (400 unit) capsule 400 unit PO DAILY 04/19/18 omega 9-gxa-gxm-fish oil 1,000 mg 1 cap PO DAILY 02/13/19 (120 mg-180 mg) capsule (Fish Oil) magnesium oxide 500 mg capsule 500 mg PO DAILY 11/24/19 anastrozole 1 mg tablet 1 mg PO DAILY 11/23/20 sennosides 8.6 mg-docusate sodium 1 tab-cap PO QHS 11/23/20 50 mg capsule digestive enzymes 3 - 4 cap PO AC 11/25/20 denosumab 60 mg/mL subcutaneous 60 mg subcut [id number] 02/09/22 syringe (Prolia) omeprazole 20 mg capsule,delayed 20 mg PO DAILY #90 caps 12/28/22 release calcium cmb no.1-vit [id number]-B12 1 tab PO DAILY 01/13/23 120 mg-1,000 unit-10 mg tablet ferrous sulfate 325 mg (65 mg 325 mg PO .3x/week 01/13/23 iron) tablet (iron) cholecalciferol (vitamin D3) 50 50 mcg PO DAILY 02/16/23 mcg (2,000 unit) capsule fluticasone 500 mcg-salmeterol 50 1 inh inhalation BID #60 ea 07/07/23 mcg/dose blistr powdr for inhalation (Wixela Inhub) pravastatin 20 mg tablet 20 mg PO DAILY #90 tabs 07/26/23 albuterol sulfate 90 mcg/actuation 2 puff inhalation BID PRN 11/01/23 aerosol inhaler (ProAir HFA) shortness of breath or wheezing #18 grams bisacodyl 5 mg tablet,delayed 5 mg PO ONCE #4 tabs 01/18/24 release (Dulcolax (bisacodyl)) polyethylene glycol 3350 17 17 g PO ONCE #238 grams 01/18/24 gram/dose oral powder Current Visit Medications: Current Medications Generic Name Dose Route Start Last Admin Trade Name Brian PRN Reason Stop Dose Admin Ringer's Solution 1,000 mls @ 80 mls/hr 02/08/24 06:00 02/08/24 06:46 IV 02/08/24 23:59 80 mls/hr INFUSION LUZ Administration IV Miscellaneous Supplies 1 each 02/08/24 06:00 Iv Access IV 02/08/24 23:59 DIRECTED LUZ Sodium Chloride 0 ml 02/08/24 06:00 Normal Saline Flush 10 Ml Syr IV 02/08/24 23:59 PRN PRN Sodium Chloride 0 ml 02/08/24 06:00 Normal Saline 10 Ml Vial IJ 02/08/24 23:59 DIRECTED PRN Sterile Water 0 ml 02/08/24 06:00 Water,Injection,Sterile 10 Ml Vial IJ 02/08/24 23:59 DIRECTED PRN PFSH Active Problems Active Problems: Problem Status Onset Code Nondisplaced fracture of fifth left metatarsal bone Acute 07/03/23 S92.355A 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 denies she is diabetic Invasive lobular carcinoma of right breast in female (~2000) S/p chemo, radiation, mastectomy Invasive lobular carcinoma of left breast in female (~11/2019) S/p total mastectomy Basal cell carcinoma Right posterior calf 2020, left nasal sidewall 2022 Vitamin D deficiency Surgical History Surgical History S/P Mohs surgery for basal cell carcinoma (02/20/23) Hx of cataract removal with insertion of prosthetic lens H/O Whipple procedure (03/23/20) Pancreatectomy, partial gastrectomy with pancreaticojejunostomy, cholecystectomy History of pancreatectomy (03/23/20) Whipple,-partial H/O total mastectomy of left breast (12/20/19) History of esophagogastroduodenoscopy (EGD) (~2012) History of modified radical mastectomy of right breast (02/06/01) S/P colonoscopy (01/07/14) History of tonsillectomy Tobacco Smoking/Tobacco Use Status: Never Passive smoking exposure: Yes Second hand exposure: Yes Alcohol Alcohol Intake: former Substance Use Substance use: Never Substance use type: does not use Prental History History 6 Para Hx # Term Pregnancies Multiple births Hx # Pregnancies Ectopic pregnancies AB induced Hx Number of Living Children AB spontaneous 6 Vital Signs and Lab Results Vital Signs Most Recent Vital Signs in EMR: Most Recent Vital Signs Temp Pulse Resp BP Pulse Ox 36.8 C 65 20 132/78 97 02/08/24 06:25 02/08/24 06:25 02/08/24 06:25 02/08/24 06:25 02/08/24 06:25 Lab Results Blood Type / Crossmatch: No Data to Display Complete Blood Count: No Data to Display Complete Metabolic Panel: No Data to Display Liver Function Panel: No Data to Display Coagulation Panel: No Data to Display Cardiac Panel: No Data to Display Arterial Blood Gas: No Data to Display Venous Blood Gas: No Data to Display Pancreas Panel: No Data to Display Thyroid Panel: No Data to Display Infectious Disease: No Data to Display Blood Cultures: No Data to Display Toxicology Panel: No Data to Display Imaging and Studies Imaging and Studies Study information below may be from another EMR and interpreted by another provider. Please see original notes in EMR for more complete details. Stress Test Summary: Date of study: 11/23/2018 *PATIENT PRESENTATION* Height: 157.5cm (62in) Blood Pressure: Weight: 54.5kg (120lb) BSA: 1.55m^2 Ordering physician: Ranjit Fischer Impressions: Normal study after maximal exercise. Echocardiogram Summary: Date of study: 12/11/2018 Transthoracic Echocardiography M-mode, complete 2D, complete spectral Doppler, and color Doppler *STUDY CONCLUSIONS* Summary: 1. Left ventricle: The cavity size was normal. Wall thickness was normal. Systolic function was normal. The estimated ejection fraction was 60-65%. Wall motion was normal; there were no regional wall motion abnormalities. 2. Right ventricle: The cavity size was normal. Systolic function was normal. 3. Left atrium: The atrium was mildly dilated. 4. Inferior vena cava: The vessel was patent and normal in size. The respirophasic diameter changes were in the normal range (greater than or equal to 50%), consistent with normal central venous pressure. Pulmonary Function Summary: DATE OF SERVICE December 07, 2018 REQUESTING PROVIDER Ranjit Fischer M.D. INTERPRETATION OF STUDY Spirometry shows severe obstructive airways disease with significant bronchodilator response.. LUNG VOLUMES - Lung volumes show no evidence of restriction. DIFFUSION CAPACITY- Mildly reduced, which is normal when corrected to alveolar volume. AIRWAY RESISTANCE - Elevated. IMPRESSION Severe obstructive airways disease with significant bronchodilator response. This is associated with mild diffusion defect. Clinical correlation recommended. Anesthesia Assessment and Plan Anesthesia History Personal History: No History of Anesthesia Complications Family History: No Family History of Anesthesia Complications Exercise Tolerance Exercise Tolerance: Metabolic Equivalents>4 Pertinent Negatives Pertinent Negatives: No Symptoms of GERD Cardiac & Pulmonary Exam Cardiac Exam: Normal S1/S2 Heart Sounds Pulmonary Exam: Clear Bilateral Breath Sounds Implantable Cardiac Device Does patient have a Pacemaker or an ICD?: No Airway Exam Known Difficult Airway: No Mallampati Class: 1 Mouth Opening: Normal (> 3cm) Thyromental Distance: Greater than 3 cm Neck Range of Motion: Full ROM Neck Circumference: Normal Teeth Condition: Removable Dentures/Plates Upper ASA Classification ASA Score: ASA 3 Emergency Case?: No NPO Status NPO Status: NPO Clears >2 hours, Solids >8 hours Anesthesia Plan Resuscitation Status: Full Code Anesthesia Technique: General Anesthesia Airway Planned: Natural Airway Monitors Used: Standard Monitors
[2024-02-08 07:14] VITALS: BMI 19.3
--- NOTE | 2024-02-08 08:10 | W.COLOREPORT ---
Date of service: 02/08/24 Time of Service: 08:10 Colonoscopy Report Procedure Description: PROCEDURES PERFORMED: 1. Colonoscopy PREOPERATIVE DIAGNOSIS: Surveillance colonoscopy POSTOPERATIVE DIAGNOSIS: Sigmoid diverticulosis, grade 1 internal hemorrhoids SURGEON: Eliane Mane MD INDICATION for procedure: The patient is a 78-year-old woman with no NEW symptoms (has chronic baseline symptoms from pancreas surgery) who is due for surveillance colonoscopy. She has CHEK2 genetic mutation which is an increased risk for colorectal cancer. FINDINGS: Normal terminal ileum. No polyps were found. There is diverticulosis in the sigmoid colon. No inflammation, fibrosis or stricture appreciated. Mild grade 1 internal hemorrhoids noted. SURVEILLANCE interval/FOLLOW-UP: 5-10 years if still having a good life expectancy at that time. My current understanding is that NCCN guidelines recommend CHEK2 mutations follow usual screening/surveillance protocol. SPECIMENS: None EBL: Minimal COMPLICATIONS: None QUALITY of prep: Excellent Procedure in detail: The patient gave written consent and was in agreement with the indications, the potential risks as well as the benefits of the procedure. They were taken to the endoscopy suite and laid in the left lateral decubitus position. A timeout was performed and anesthesia was administered which was tolerated well. I started the procedure. Digital rectal and visual examination was performed and grossly within normal limits. A well-lubricated flexible colonoscope was then introduced and passed without any notable difficulty all the way to the cecum identified by the ileocecal valve and the appendiceal orifice. The ileum was intubated and looked normal. The scope was then slowly withdrawn with the above-noted findings. The patient tolerated the procedure well and was taken to the PACU in hemodynamically stable condition.
[2024-02-08 08:11] VITALS: BP 134/88; PULSE 79; RESP 16; TEMP 36.6; O2SAT 96
--- NOTE | 2024-02-08 08:16 | W.PM.DSUDISC ---
Date of service: 02/08/24 Time of Service: 08:16 Discharge Plan Disposition Patient Disposition: Home Condition: Good Discharge Details Attending Provider: Raj Mane Primary Care Provider: Zeny James Home Meds and New Rx's Prescriptions: No Action pravastatin 20 mg tablet 20 mg PO DAILY Qty: 90 3RF bisacodyl [Dulcolax (bisacodyl)] 5 mg tablet,delayed release (DR/EC) 5 mg PO ONCE Qty: 4 0RF Rx Instructions: Take per colonoscopy instructions provided by ordering providers office polyethylene glycol 3350 17 gram/dose powder 17 g PO ONCE Qty: 238 0RF Rx Instructions: Take per colonoscopy instructions provided by ordering providers office magnesium oxide 500 mg capsule 500 mg PO DAILY anastrozole 1 mg tablet 1 mg PO DAILY sennosides-docusate sodium 8.6-50 mg capsule 1 tab-cap PO QHS digestive enzymes Capsule 3 - 4 cap PO AC Rx Instructions: 3 tabs with meals and 1 tab with snacks ferrous sulfate [iron] 325 mg (65 mg iron) tablet 325 mg PO .3x/week Prolia 60 mg/mL syringe 60 mg subcut [id number] cholecalciferol (vitamin D3) 50 mcg (2,000 unit) capsule 50 mcg PO DAILY Ca cmb no.1-vit T4-X6-KT-B12 120-1,000-10 mg-unit-mg tablet 1 tab PO DAILY aspirin [Ecotrin Low Strength] 81 MG tablet,delayed release (DR/EC) 81 mg PO DAILY vitamin B complex [B-Complex] 1 EACH tablet 1 ea PO DAILY omega 3-tpw-mfu-fish oil [Fish Oil] 1,000 mg (120 mg-180 mg) capsule 1 cap PO DAILY omeprazole 20 mg capsule,delayed release(DR/EC) 20 mg PO DAILY Qty: 90 3RF fluticasone propion-salmeterol [Wixela Inhub] 500-50 mcg/dose blister with device 1 inh IH BID Qty: 60 4RF albuterol sulfate [ProAir HFA] 90 mcg/actuation HFA aerosol inhaler 2 puff INHALATION BID PRN (Reason: shortness of breath or wheezing) Qty: 18 4RF vitamin E 400 unit Capsule 400 unit PO DAILY Centrum Silver Women 8 mg iron-400 mcg-300 mcg Tablet 1 tab PO DAILY Discharge Instructions Additional Instructions: FINDINGS: No polyps were found. No inflammation. Nothing of concern. Some diverticular disease was seen. This is a common, benign condition and nothing needs to be done about it. NCCN guidelines (National cancer network) currently recommend routine colonoscopy intervals for your genetic mutation. With that said I would reconsider another colonoscopy in 5 years if you are still healthy and have a good life expectancy at that time. Stand Alone Forms: Colonoscopy Post Instructions Activity:: Activity as Tolerated Diet:: As Tolerated
[2024-02-08 08:31] VITALS: BP 116/65; PULSE 68; RESP 16; TEMP 36.6; O2SAT 98
--- NOTE | 2024-02-08 08:57 | W.ANESPOSTOP ---
Postoperative Evaluation Date, Time and Location Date Performed: 02/08/24 Time Performed: 08:20 Patient Location: Day Surgery Unit Vital Signs Most Recent Imported Vital Signs: Most Recent Vital Signs Temp Pulse Resp BP Pulse Ox 36.6 C 68 16 116/65 98 02/08/24 08:31 02/08/24 08:31 02/08/24 08:31 02/08/24 08:31 02/08/24 08:31 Pain Score Most Recent Pain Score: Most Recent Pain Score Pain Level 0 02/08/24 08:31 Assessment Mental Status: Awake (Alert & Oriented to Patient Baseline) Airway and Respiratory Function: Patent airway with normal (patient baseline) respiratory exam Cardiovascular Function: Hemodynamically Stable Hydration Status: Adequately Hydrated Nausea & Vomiting: No Nausea or Vomiting Pain: Pt. Denies Any Pain Peripheral Nerve Block: Patient did not receive a nerve block
== END 2024-02-08 08:42 | disposition home or self-care (01) ==
PROVIDERS: PCP Nurse Practitioner Family; Visit Provider Student in an Organized Health Care Education/Training Program
PROC: 0DJD8ZZ Inspection of Lower Intestinal Tract, Via Natural or Artificial Opening Endoscopic (ICD-10-PCS; CPT 45378; principal; 2024-02-08 07:30)
DX: Z12.11 Encounter for screening for malignant neoplasm of colon (principal); K57.30 Diverticulosis of large intestine without perforation or abscess without bleeding; K21.9 Gastro-esophageal reflux disease without esophagitis; K64.0 First degree hemorrhoids
CPT/HCPCS: G0121; 00123; J2704

== ENCOUNTER 2024-03-21 07:50 | Emergency (ER) | payer MEDICARE, BC, SELFPAY ==
[2024-03-21 08:02] VITALS: BP 185/101; PULSE 84; RESP 15; TEMP 36.2; O2SAT 97
[2024-03-21 08:06] VITALS: BP 185/101; PULSE 84; RESP 15; TEMP 36.2; O2SAT 97
--- NOTE | 2024-03-21 08:07 | ED.GENADUL_ITS ---
Discharge Plan Disposition Patient Disposition: Home Condition: Stable Discharge Details Clinical Impression: Cellulitis, GERD (gastroesophageal reflux disease), Severe persistent asthma, Intraductal papillary mucinous neoplasm of pancreas, History of bilateral breast cancer, Hyperlipidemia, Infection of left olecranon bursa Primary Care Provider: Zeny James ED Provider: Sanjuanita Sharma Home Meds and New Rx's Prescriptions: New sulfamethoxazole-trimethoprim [Bactrim] 400-80 mg tablet 2 tab PO BID 14 Days Qty: 56 0RF No Action pravastatin 20 mg tablet 20 mg PO DAILY Qty: 90 3RF magnesium oxide 500 mg capsule 500 mg PO DAILY anastrozole 1 mg tablet 1 mg PO DAILY sennosides-docusate sodium 8.6-50 mg capsule 1 tab-cap PO QHS digestive enzymes Capsule 3 - 4 cap PO AC Rx Instructions: 3 tabs with meals and 1 tab with snacks ferrous sulfate [iron] 325 mg (65 mg iron) tablet 325 mg PO .3x/week Prolia 60 mg/mL syringe 60 mg subcut [id number] Ca cmb no.1-vit E7-L2-UM-B12 120-1,000-10 mg-unit-mg tablet 1 tab PO DAILY cholecalciferol (vitamin D3) 50 mcg (2,000 unit) capsule 4,000 mcg PO DAILY vitamin B complex [B-Complex] 1 EACH tablet 1 ea PO DAILY omega 7-tpc-bwu-fish oil [Fish Oil] 1,000 mg (120 mg-180 mg) capsule 1 cap PO DAILY albuterol sulfate [ProAir HFA] 90 mcg/actuation HFA aerosol inhaler 2 puff INHALATION BID PRN (Reason: shortness of breath or wheezing) Qty: 18 4RF omeprazole 20 mg capsule,delayed release(DR/EC) 20 mg PO DAILY Qty: 90 3RF fluticasone propion-salmeterol [Wixela Inhub] 500-50 mcg/dose blister with device 1 inh IH DAILY Qty: 60 5RF vitamin E 400 unit Capsule 400 unit PO DAILY Centrum Silver Women 8 mg iron-400 mcg-300 mcg Tablet 1 tab PO DAILY Discharge Instructions Instructions: Cellulitis (skin infection) in adults - Discharge instructions Additional Instructions: You were seen in the emergency department today for evaluation of an infection over your left elbow after a fall. This is concerning for an infection of the skin and the underlying skin structures, specifically the bursa or pocket of fluid that cushions your elbow. It is safe for you to go home and start a course of antibiotics. This has to be a slightly longer course than typical due to the location over the bursa. Please take all this medication until it is gone, even if you start to feel better. You will need to follow-up with your primary care provider in the next few days for reassessment to ensure that terri rything is healing appropriately. You can also return to care if you develop a fever, pain when you move your elbow, or any other symptoms that cause you concern. Thank you for allowing us to be part of your care. HPI General Mode of arrival: ambulatory . Date/Time Provider Initiated Documentation: 03/21/24 07:54 . Limitations to Documentation: no limitations . Information obtained by: patient and old records reviewed . HPI Narrative: HPI: This is a 78-year-old female patient with a past medical history significant for pancreatic cancer status post Whipple without evidence of recurrence, history of asthma, osteoporosis, hyperlipidemia and hypertension, who is presenting for evaluation of a left elbow infection. The patient reports that the Monday before she took a fall getting out of the car, landing on her left elbow and right knee. She reports that she did not think anything of the fall as she was not having any pain, did have some bleeding of her elbow that resolved on its own. Today, the patient reports that she lifted up her arm to adjust her hair, and noticed redness and swelling on the back of her elbow that she had not seen before. She notes that this is not tender, she has not had any decrease in range of motion of the elbow or pain with doing so, and she has not had any fevers or chills. No recent antibiotic use. Exam: Gen: Awake and alert, in no apparent distress HEENT: Non-icteric sclera Neck: Supple Lungs: No apparent respiratory distress, normal respiratory effort. CV: Appears well perfused, strong distal pulses, heart with regular rate and rhythm Abdomen: Non-distended MSK: Moves 4 extremities without apparent limitation in ROM Skin: Visualized skin without rashes, cyanosis. The patient does have swelling and redness overlying the left elbow directly overlying the olecranon bursa, well-demarcated, warm to the touch. No significant fluctuance is appreciated, no drainage but there is a scab at the apex of the swelling. Neuro: Normal Gait, no obvious focal deficits or facial asymmetry. Speaks in full, clear sentences. Psych: Appropriate for situation. MDM: This is a 78-year-old female patient presenting for evaluation of a left elbow infection. My differential includes but is not limited to septic bursitis, certainly considered cellulitis, abscess. Reassuringly, the patient is without systemic symptoms such as tachycardia or fever to suggest bacteremia or sepsis. This is an isolated complaint and she has no other injuries from this fall. The patient has no pain with passive range of motion to significantly increase my concern for septic arthritis, gout, or inflammatory arthritis. ED Course: After an evaluation I feel this patient, who is hemodynamically appropriate and afebrile, is appropriate for an outpatient course of treatment. I did provide her with a course of Bactrim after reviewing her renal function, which is baseline and without decreased creatinine clearance. This will be an extended course of 14 days due to the concern for bursa involvement. At this time, the patient has had a full medical evaluation and is safe for discharge to home. They are hemodynamically stable, ambulatory, and tolerating PO. They are understanding of the follow-up plan and return precautions. They left our facility without incident. Sanjuanita Sharma MD Related Data Home Medications ?Medication ?Instructions ?Recorded ?Confirmed vitamin B complex (B-Complex 1 ea PO DAILY 01/28/13 03/21/24 tablet) [id number] 8 mg-folic 400 1 tab PO DAILY 04/19/18 03/21/24 mcg-K 50 mcg-lutein 300 mcg tablet (Centrum Silver Women) vitamin E 268 mg (400 unit) capsule 400 unit PO DAILY 04/19/18 03/21/24 omega 4-xtu-dlr-fish oil 1,000 mg 1 cap PO DAILY 02/13/19 03/21/24 (120 mg-180 mg) capsule (Fish Oil) magnesium oxide 500 mg capsule 500 mg PO DAILY 11/24/19 03/21/24 anastrozole 1 mg tablet 1 mg PO DAILY 11/23/20 03/21/24 sennosides 8.6 mg-docusate sodium 1 tab-cap PO QHS 11/23/20 03/21/24 50 mg capsule digestive enzymes 3 - 4 cap PO AC 11/25/20 03/21/24 denosumab 60 mg/mL subcutaneous 60 mg subcut [id number] 02/09/22 03/21/24 syringe (Prolia) calcium b no.1-vit B5-K6-AT-B12 1 tab PO DAILY 01/13/23 03/21/24 120 mg-1,000 unit-10 mg tablet ferrous sulfate 325 mg (65 mg 325 mg PO .3x/week 01/13/23 03/21/24 iron) tablet (iron) pravastatin 20 mg tablet 20 mg PO DAILY #90 tabs 07/26/23 03/21/24 albuterol sulfate 90 mcg/actuation 2 puff inhalation BID PRN 11/01/23 03/21/24 aerosol inhaler (ProAir HFA) shortness of breath or wheezing #18 grams omeprazole 20 mg capsule,delayed 20 mg PO DAILY #90 caps 02/15/24 03/21/24 release cholecalciferol (vitamin D3) 50 4,000 mcg PO DAILY 02/22/24 03/21/24 mcg (2,000 unit) capsule fluticasone 500 mcg-salmeterol 50 1 inh inhalation DAILY #60 ea 03/04/24 03/21/24 mcg/dose blistr powdr for inhalation (Wixela Inhub) sulfamethoxazole 400 2 tab PO BID 14 days #56 tabs 03/21/24 mg-trimethoprim 80 mg tablet (Bactrim) Previous Rx's ?Medication ?Instructions ?Recorded pravastatin 20 mg tablet 20 mg PO DAILY #90 tabs 07/26/23 albuterol sulfate 90 mcg/actuation 2 puff inhalation BID PRN 11/01/23 aerosol inhaler (ProAir HFA) shortness of breath or wheezing #18 grams omeprazole 20 mg capsule,delayed 20 mg PO DAILY #90 caps 02/15/24 release fluticasone 500 mcg-salmeterol 50 1 inh inhalation DAILY #60 ea 03/04/24 mcg/dose blistr powdr for inhalation (Wixela Inhub) sulfamethoxazole 400 2 tab PO BID 14 days #56 tabs 03/21/24 mg-trimethoprim 80 mg tablet (Bactrim) Allergies Allergy/AdvReac Type Severity Reaction Status Date / Time house dust mite Allergy Asthma Verified 03/21/24 07:59 pollen extracts Allergy Asthma Verified 03/21/24 07:59 General Stated Complaint: Cellulitis STEPHANIE: 3 Course Vital Signs Vital signs: Vital Signs Temperature 36.2 C L 03/21/24 08:02 Pulse 84 03/21/24 08:02 Respiratory Rate 15 03/21/24 08:02 Blood Pressure 185/101 H 03/21/24 08:02 Pulse Oximetry 97 03/21/24 08:02 Temperature 36.2 C L 03/21/24 08:06 Temperature Source Temporal Artery Scan 03/21/24 08:06 Pulse 84 03/21/24 08:06 Respiratory Rate 15 03/21/24 08:06 Respiratory Effort Normal 03/21/24 08:05 Blood Pressure 185/101 H 03/21/24 08:06 Blood Pressure Position Sitting 03/21/24 08:06 Pulse Oximetry 97 03/21/24 08:06 Oxygen Delivery Method Room Air 03/21/24 08:06 Oxygen Flow Rate 0 03/21/24 08:06 Pain Level 5 03/21/24 08:06 Medical Decision Making Quality:SDOH Health Related Social Needs: No Data to Display PFSH All Active Problems (Updated 03/21/24 @ 08:08 by Sanjuanita Sharma MD) Infection of left olecranon bursa (Acute) Cellulitis (Acute) History of bilateral breast cancer (Chronic) Right invasive lobular carcinoma in 2000 s/p chemo, radiation, mastectomy and left invasive lobular carcinoma in 2019 s/p total mastectomy Intraductal papillary mucinous neoplasm of pancreas (Chronic ~2019) S/p Whipple 04/05 Severe persistent asthma (Chronic) Osteoporosis (Chronic) Fosamax x 10 yrs. 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 denies she is diabetic Invasive lobular carcinoma of right breast in female (~2000) S/p chemo, radiation, mastectomy Invasive lobular carcinoma of left breast in female (~11/2019) S/p total mastectomy Basal cell carcinoma Right posterior calf 2020, left nasal sidewall 2022 Vitamin D deficiency Surgical History S/P Mohs surgery for basal cell carcinoma (02/20/23) Hx of cataract removal with insertion of prosthetic lens H/O Whipple procedure (03/23/20) Pancreatectomy, partial gastrectomy with pancreaticojejunostomy, cholecystectomy History of pancreatectomy (03/23/20) Whipple,-partial H/O total mastectomy of left breast (12/20/19) History of esophagogastroduodenoscopy (EGD) (~2012) History of modified radical mastectomy of right breast (02/06/01) S/P colonoscopy (01/2024) History of tonsillectomy Family History (Updated 02/22/24 @ 09:28 by Olivia Pittman) Mother , age 76 Depression Hypertension Father , age 68 Heart disease Hyperlipidemia Alcohol abuse Hypertension Sister Hyperlipidemia Breast cancer In her 50s Brother Depression Heart disease Hyperlipidemia Stroke Substance abuse Alcohol abuse Hypertension Myocardial infarction Maternal Grandfather Stroke Maternal Grandmother No problems noted. Paternal Grandfather No problems noted. Paternal Grandmother , At 92 Osteoporosis Son Adopted Alcohol use disorder Depression Son Adopted Son Adopted Social History (Updated 02/22/24 @ 09:25 by Olivia Pittman) Smoking/Tobacco Use Status: Never Second Hand Exposure: Yes Smoking risk assessment performed?: Yes Alcohol Intake: former Drug use: Rarely Substance use type: marijuana Adopted: No Caregiver/Support person: No Foster care: No Household members: none Housing: house Number of Children: 3 number of grandchildren: 3 Communication Needs: None Education Level: college Details: BA Do you need help understanding health information?: Never current occupation: retired Pets and animals: No Sexually active: No Do you think of yourself as: straight/heterosexual Current gender identity: female What is your relationship status?: How often do you talk on the phone with friends or family?: three or more times per week How often do you get together with friends or relatives?: three or more times per week How often do you attend pentecostal or sikh services?: 4 or more times per year Do you belong to any clubs or organized social groups?: yes Panel score (0-1 are the most socially isolated patients): 3 What type of physical activity do you participate in: walking and other Details: wellness, bone-building Duration: 45-60 minutes/day Frequency: 3-4 times per week Marti/Denominational: Church Special marti needs: No Agree to transfusion: Yes Seatbelt use: always Helmet use: No Drive intox or ride w/intox refrigerated national truck driver: No Working smoke detector in home: Yes Carbon monox detector in home: Yes Firearms in home: No Do you feel safe at home: Yes Do you feel safe in your relationship?: Yes Victim of physical abuse: No Victim of emotional abuse: No Victim of sexual abuse: No Would you like helpful sources: No Additional Social history: live alone History History 6 Para Hx # Term Pregnancies Multiple births Hx # Pregnancies Ectopic pregnancies AB induced Hx Number of Living Children AB spontaneous 6
== END 2024-03-21 08:14 | disposition home or self-care (01) ==
PROVIDERS: Emergency Provider Emergency Medicine; PCP Nurse Practitioner Family
DX: M71.122 Other infective bursitis, left elbow (principal); L03.114 Cellulitis of left upper limb; Z85.3 Personal history of malignant neoplasm of breast; Z85.07 Personal history of malignant neoplasm of pancreas; V48.4XXA Person boarding or alighting a car injured in noncollision transport accident, initial encounter; K21.9 Gastro-esophageal reflux disease without esophagitis; J45.50 Severe persistent asthma, uncomplicated; I10 Essential (primary) hypertension
CPT/HCPCS: 99283

== ENCOUNTER 2024-05-01 03:15 | Outpatient (CLI) | payer MEDICARE, BC, SELFPAY ==
[2024-05-01 13:08] LABS: ALT 61 U/L (14-59); AST 39 U/L (15-37); Albumin 3.8 g/dL (3.4-5.0); Alkaline Phosphatase 99 U/L (46-116); Anion Gap 6.5 mmol/L (3-11); BUN 20 mg/dL (7-18); CO2 29.5 mmol/L (21.0-32.0); CREATININE 0.8 mg/dL (0.55-1.02); Calcium 9.3 mg/dL (8.5-10.1); Chloride 101 mmol/L (98-107); Estimated GFR 75.84 (mL/min/1.73m2); Glucose 123 mg/dL (74-106); Potassium 4.3 mmol/L (3.5-5.1); Sodium 137 mmol/L (136-145); Total Protein 7.1 g/dL (6.4-8.2)
[2024-05-01 13:31] LABS: Vitamin D 25 Total 24.5 ng/mL (30-100)
== END 2024-05-01 03:16 | disposition home or self-care (01) ==
PROVIDERS: PCP Nurse Practitioner Family; Visit Provider Nurse Practitioner Family
DX: E55.9 Vitamin D deficiency, unspecified (principal); C50.912 Malignant neoplasm of unspecified site of left female breast; Z17.0 Estrogen receptor positive status [ER+]; Z79.811 Long term (current) use of aromatase inhibitors; M85.80 Other specified disorders of bone density and structure, unspecified site
CPT/HCPCS: 36415; 80053; 82306

== ENCOUNTER 2024-05-10 14:41 | Outpatient (CLI) | payer MEDICARE, BC, SELFPAY ==
--- NOTE | 2024-05-10 14:44 | DI.RAD_ITS ---
Exam(s) XR LUMBAR SPINE COMPLETE EXAM: XR LUMBAR SPINE COMPLETE CLINICAL HISTORY: M54.9 Dorsalgia, back pain. TECHNIQUE: 2D digital imaging was performed. Five views. COMPARISON: CR,XR XR COCCYX from 04/11/2022 CR XR DEXA BONE DENSITY W/WO [place] from 12/22/2022 FINDINGS: BONES: No fracture or destructive lesion. Vertebral body heights are maintained. Facet hypertroph y identified at L3-4 through L5-S1. DISKS: Intervertebral disc spaces are maintained. ALIGNMENT: Mild L5-S1 spondylolisthesis secondary to facet degenerative changes. Stable from prior e xams. SOFT TISSUE: Surgical clips right upper quadrant and mid abdomen. IMPRESSION: Degenerative changes of the facet joints of the lower lumbar spine. Mild L5-S1 spondylolisthesis. DATA REPOSITORY: RADIATION DOSE DELIVERED:
--- OUTSIDE RECORDS SUMMARY | 2024-05-10 14:48 | XMS_ITS | Encounter Summary ---
Author Organization [facility] Address [address] [place] [id number] Care Team Providers Care Seconds Grader Name Role Phone Steph Schulz MD Primary Care Provider [phone] Encounter Details Date Type Department Care Team (Late st Contact Info) Description 12/25/[address] [facility] Pathology & Laboratory Medicine - [facility] [address] [place], [place] [id number] Outr Resulting Lab, Provider Social History Tobacco Use Types Packs/Day Years Used Date Smoking Tobacco: Never Assessed Comments Unknown Sex and Gender Information Value Date Recorded Sex Assigned at Not on file Legal Sex Female 18:39 EST Gender Identity Not on file Sexual Orientation Not on file documented as of this encounter Plan of Treatment Not on file documented as of this encounter Procedures Procedure Name Priority Date/Time Associated Diagnosis Comments PTH INTACT Routine 12/25/2020 9:09 EDT documented in this encounter Results * PTH INTACT (12/25/2020 9:09 EDT) Intact PTH 35 19 - 88 pg/mL 12/28/2020 11:45 EDT [facility] Blood VENOUS BLOOD / Unknown 12/25/2020 9:09 EDT 12/25/2020 16:06 EDT us Provider Outr Resulting Lab CHEMISTRY & BLOOD GA S ORDERABLES Final Result [facility] [address] [place] [address] documented in this encounter Visit Diagnoses Not on filedocumented in this encounter Care Teams Seconds Grader Relationship Specialty Start Date End Date Steph Schulz MD [address] [place] [address] PCP - General 04/02/12 documented as of this encounter
--- OUTSIDE RECORDS SUMMARY | 2024-05-10 14:48 | XMS_ITS | Encounter Summary ---
Author Organization [facility] Address [address] [place] [address] Care Team Providers Care Analysis Or Research Safety Inspector Name Role Phone Steph Schulz MD Primary Care Provider [phone] Encounter Details Date Type Department Care Team (Late st Contact Info) Description 11/02/2023 Lab Requisition [facility] Pathology & Laboratory Medicine - [facility] [address] [place], [place] [id number] Outr Resulting Lab, Provider Social History Tobacco [...] Procedure Name Priority Date/Time Associated Diagnosis Comments HIV 1/2 ANTIGEN AND ANTIBODY, 4TH GENERATION Routine 11/02/2023 12:16 EDT documented in this encounter Results * HIV 1/2 ANTIGEN AND ANTIBODY, 4TH GENERATION (11/02/2023 12:16 EDT) HIV 1 and 2 Antibody/p24 Antigen, 4th Generation Negative Negative 11/03/2023 11:31 EDT [facility] Comment:If acute HIV-1 infec tion is suspected in a high risk patient, submit plasma specimen for HIV-1 RNA quantitation test. Blood VENOUS BLOOD / Unknown 11/02/2023 12:16 EDT 11/02/2023 21:25 EDT Narrative [facility] - 11/03/2023 11:31 EDT Fourth Generation assay performed on the Siemens Centaur XPT. us Provider Outr Resulting Lab IMMUNOLOGY AND SEROL OGY ORDERABLES Final Result [facility] [address] [place] [id number] documented in this encounter Visit Diagnoses Not on filedocumented in this encounter Care Teams Analysis Or Research Safety Inspector Relationship Specialty Start Date End Date Steph Schulz MD [address] [place] [id number] PCP - General 04/02/12 documented as of this encounter
--- OUTSIDE RECORDS SUMMARY | 2024-05-10 14:48 | XMS_ITS | Clinical Summary ---
Author Organization [facility] Address [address] [place] [address] Care Team Providers Care Jack Tamp Operator Name Role Phone Steph Schulz MD Primary Care Provider [phone] Social History Tobacco Use Types Packs/Day Years Used Date Smoking Tobacco: Never Assessed Comments Unknown Sex and Gender Information Value Date Recorded Sex Assigned at Not on file Legal Sex Female 18:39 EST Gender Identity Not on file Sexual Orientation Not on file Plan of Treatment Health Maintenance Due Date Last Done Comments Hepatitis C Screen 1945 Fall Risk Screening 09/30/2011 RSV Immunization ( o r 60+ Years) (1 - 1-dose 75+ series) 2021 COVID-19 Vaccine (2023- season) 2023 Care Teams Jack Tamp Operator Relationship Specialty Start Date End Date Steph Schulz MD [address] [place] [address] PCP - General 04/02/12
--- OUTSIDE RECORDS SUMMARY | 2024-05-10 14:48 | XMS_ITS | Encounter Summary ---
Author Organization [facility] Address [address] [place] [address] Care Team Providers Care Solar Installer Name Role Phone Steph Schulz MD Primary Care Provider [phone] Encounter Details Date Type Department Care Team (Late st Contact Info) Description 05/08/2020 Lab Requisition [facility] Pathology & Laboratory Medicine - [facility] [address] [place], [place] [address] Outr Resulting Lab, Provider Social History Tobacco [...] 20 - 40 mg/dL 05/11/2020 11:09 EST [facility] Blood VENOUS BLOOD / Unknown 05/07/2020 15:15 EST 05/08/2020 15:47 EST us Provider Outr Resulting Lab CHEMISTRY & BLOOD GA S ORDERABLES Final Result [facility] [address] [place] [address] documented in this encounter Visit Diagnoses Not on filedocumented in this encounter Care Teams Solar Installer Relationship Specialty Start Date End Date Steph Schulz MD [address] [place] [address] PCP - General 04/02/12 documented as of this encounter
--- OUTSIDE RECORDS SUMMARY | 2024-05-10 14:48 | XMS_ITS | Encounter Summary ---
Author Organization [facility] Address [address] [place] [address] Care Team Providers Care Document Control Specialist Name Role Phone Steph Schulz MD Primary Care Provider [phone] Encounter Details Date Type Department Care Team (Late st Contact Info) Description 11/02/2023 Lab Requisition [facility] Pathology & Laboratory Medicine - [address] [id number] Outr Resulting Lab, Provider Social History Tobacco [...] Procedure Name Priority Date/Time Associated Diagnosis Comments HEPATITIS B PROFILE Routine 11/02/2023 1 2:16 EDT documented in this encounter Results * HEPATITIS B PROFILE (11/02/2023 12:16 EDT) Hep B Surface Ag Negative Negative 11/03/19 11:30 EDT [facility] Hep B Surface Ab, Quantitative <3.1 See Note mIU/mL 11/03/2023 11:30 EDT [facility] Comment: Reference Range for Hep B Surface Ab, Quant: Positive: >= 10.0 mIU/mL Negative: ??< 10.0 mIU/mL Patient is presumed to not be immune to infection with Hepatitis B Virus. Hep B Surface Ab, Qualitative Negative See Note 11/03/2023 11:30 EDT [facility] Comment: Reference Range for Hep B Surface Ab, Qual: Unvaccinated: ??Negative Vaccinated: ??Positive Hepatitis B Core Ab, Total Negative Negative 11/03/2023 11:30 EDT [facility] Blood VENOUS BLOOD / Unknown 11/02/2023 12:16 EDT 11/02/2023 21:25 EDT us Provider Outr Resulting Lab CHEMISTRY & BLOOD GA S ORDERABLES Final Result Performing Organization Address City/State/[facility] Co de Phone Number [facility] [address] [place], [place] [address] documented in this encounter Visit Diagnoses Not on filedocumented in this encounter Care Teams Document Control Specialist Relationship Specialty Start Date End Date Steph Schulz MD [address] [place] [address] PCP - General 04/02/12 documented as of this encounter
--- OUTSIDE RECORDS SUMMARY | 2024-05-10 14:48 | XMS_ITS | Encounter Summary ---
Author Organization [facility] Address [address] [place] [address] Care Team Providers Care Property Controller Name Role Phone Unavailable Primary Care Provider Unavailabl e Encounter Details Date Type Department Care Team (Late st Contact Info) Description 06/12/2006 Results Only [facility] - [facility] [address] [place] [address] Steph Saravia MD [address] [place], [place] [id number] Social History Tobacco Use Types Packs/Day Years [...] ? LINDA ABEL ? Accession #: ? [id number] : ? 1945 (Age: 60) ??F ?Collect Date: ? 06/12/2006 Location: ? [facility] ? Receive Date: ? 06/14/2006 Provider: ?STEPH SARAVIA MD Copy to: ? Specimen/Source: ?ThinPrep Pap Test, Cervix/Endocervix, processed on [employer] ThinPrep Imaging System, with manual evaluation Last [...] End of Report [facility] 06/12/2006 06/14/2006 us Steph Saravia MD PATHOLOGY ORDERABLES Final Re sult [facility] [address] [place] [address] documented in this encounter Visit Diagnoses Not on filedocumented in this encounter
--- OUTSIDE RECORDS SUMMARY | 2024-05-10 14:48 | XMS_ITS | Encounter Summary ---
Author Organization [facility] Address [address] [place] [address] Care Team Providers Care Maternal Child Nurse Name Role Phone Unavailable Primary Care Provider Unavailabl e Encounter Details Date Type Department Care Team (Late st Contact Info) Description 03/30/2012 Results Only [facility] - [facility] ([facility] [address] [place], [place] [id number] Rasheed Goff, DO [address] [facility] [address] [place] [address] Social History Tobacco Use Types Packs/Day Years [...] ? LINDA ABEL ? Accession #: ? [id number] ? : ? 1945 (Age: 66) ??F [...] ??Positive and negative controls stained appropriately. (Dr. Holloway)/ljn Block ?Antibody (Clone) ? Result ? C [...] reagents' performance characteristics have been determined by [facility]. ??This laboratory is certified under the Clinical [...] 0.2 cm, submitted entirely as (C). ??(Dr. Goetz)/[facility] End of Report [facility] 03/30/2012 03/30/2012 16: 20 EST us Rasheed Goff DO PATHOLOGY ORDERABLES Fi nal Result [facility] [address] [place] [address] documented in this encounter Visit Diagnoses Not on filedocumented in this encounter
--- OUTSIDE RECORDS SUMMARY | 2024-05-10 14:48 | XMS_ITS | Encounter Summary ---
Author Organization [facility] Address [address] [place] [address] Care Team Providers Care Pyrometallurgical Engineer Name Role Phone Steph Schulz MD Primary Care Provider [phone] Encounter Details Date Type Department Care Team (Late st Contact Info) Description 04/24/2020 Lab Requisition [facility] Pathology & Laboratory Medicine - [facility] [address] [place], [place] [phone] Outr Resulting Lab, Provider Social History Tobacco [...] 20 - 40 mg/dL 04/27/2020 10:00 EST [facility] Blood VENOUS BLOOD / Unknown 04/23/2020 15:30 EST 04/24/2020 15:48 EST us Provider Outr Resulting Lab CHEMISTRY & BLOOD GA S ORDERABLES Final Result [facility] [address] [place] [address] documented in this encounter Visit Diagnoses Not on filedocumented in this encounter Care Teams Pyrometallurgical Engineer Relationship Specialty Start Date End Date Steph Schulz MD [address] [place] [address] PCP - General 04/02/12 documented as of this encounter
--- OUTSIDE RECORDS SUMMARY | 2024-05-10 14:48 | XMS_ITS | Encounter Summary ---
Author Organization [facility] Address [address] [place] [address] Care Team Providers Care International Logistics Coordinator Name Role Phone Steph Schulz MD Primary Care Provider Encounter Details Date Type Department Care Team (Late st Contact Info) Description 11/23/2020 Lab Requisition [facility] Pathology & Laboratory Medicine - [facility] [address] [place], [place] [phone] Outr Resulting Lab, Provider Social History Tobacco [...] Surface Ag Negative Negative 11/24/2020 10:12 EDT [facility] Hep C Antibody Negative Negative 11/24/2020 10:12 EDT [facility] Hepatitis A Antibody, IgM Negative Negative 11/24/2020 10:12 EDT [facility] Comment:The results of this assay can be falsely lowered due to the consumption of Biotin. Hepatitis B Core Ab, Total Negative Negative 11/24/2020 10:12 EDT [facility] Blood VENOUS BLOOD / Unknown 11/20/2020 8:15 EDT 11/23/2020 20:33 EDT us Provider Outr Resulting Lab CHEMISTRY & BLOOD GA S ORDERABLES Final Result [facility] [address] [place] [address] documented in this encounter Visit Diagnoses Not on filedocumented in this encounter Care Teams International Logistics Coordinator Relationship Specialty Start Date End Date Steph Schulz MD [address] [place] [address] PCP - General 04/02/12 documented as of this encounter
--- OUTSIDE RECORDS SUMMARY | 2024-05-10 14:48 | XMS_ITS | Encounter Summary ---
Author Organization [facility] Address [address] [place] [address] Care Team Providers Care Water Registrar Name Role Phone Steph Schulz MD Primary Care Provider [phone] Encounter Details Date Type Department Care Team (Late st Contact Info) Description 03/04/2019 Lab Requisition [facility] Pathology & Laboratory Medicine - [facility] [address] [place] [address] Unknown, Provider, Social History Tobacco Use Types [...] 90 - 200 mg/dL 03/05/2019 10:03 EST [facility] Blood VENOUS BLOOD / Unknown 03/04/2019 10:48 EST 03/04/2019 15:40 EST us Provider Unknown CHEMISTRY & BLOOD GAS ORDERA BLES Final Result [facility] [address] [place] [address] documented in this encounter Visit Diagnoses Not on filedocumented in this encounter Care Teams Water Registrar Relationship Specialty Start Date End Date Steph Schulz MD [address] [place] [address] PCP - General 04/02/12 documented as of this encounter
--- OUTSIDE RECORDS SUMMARY | 2024-05-10 14:48 | XMS_ITS | Encounter Summary ---
Author Organization [facility] Address [address] [place] [address] Care Team Providers Care Auto Detailer Name Role Phone Steph Schulz MD Primary Care Provider Encounter Details Date Type Department Care Team (Late st Contact Info) Description 10/07/2019 Lab Requisition [facility] Pathology & Laboratory Medicine - [facility] [address] [place], [place] [address] Outr Resulting Lab, Provider Social History Tobacco [...] Unknown 10/07/2019 11:12 EDT 10/07/2019 15:44 EDT us Provider Outr Resulting Lab MICROBIOLOGY - GENER AL ORDERABLES Final Result [facility] [address] [place] [address] * COVID-19 TESTING (10/07/2019 11:12 EDT) COVID-19 rt-PCR Result Negative Negative 10/07/2019 21:40 EDT [facility] Comment: This test has not [...] history, and epidemiological information. Performed on the [employer] instrument Performing Lab [place] [facility] 10/07/2019 21:40 EDT [facility] Swab 10/07/2019 11:1 2 EDT 10/07/2019 15:44 EDT us Provider Outr Resulting Lab MICROBIOLOGY - GENER AL ORDERABLES Final Result [facility] [address] [place] [address] documented in this encounter Visit Diagnoses Not on filedocumented in this encounter Care Teams Auto Detailer Relationship Specialty Start Date End Date Steph Schulz MD [address] [place] [address] PCP - General 04/02/12 documented as of this encounter
--- OUTSIDE RECORDS SUMMARY | 2024-05-10 14:48 | XMS_ITS | Encounter Summary ---
Author Organization [facility] Address [address] [place] [address] Care Team Providers Care Field Technical Assistant Name Role Phone Steph Schulz MD Primary Care Provider [phone] Encounter Details Date Type Department Care Team (Late st Contact Info) Description 04/14/2020 Lab Requisition [facility] Pathology & Laboratory Medicine - [facility] [address] [place], [place] [address] Outr Resulting Lab, Provider Social History Tobacco [...] 20 - 40 mg/dL 04/15/2020 9:40 EST [facility] Blood VENOUS BLOOD / Unknown 04/13/2020 15:15 EST 04/14/2020 15:54 EST us Provider Outr Resulting Lab CHEMISTRY & BLOOD GA S ORDERABLES Final Result [facility] [address] [place] [address] documented in this encounter Visit Diagnoses Not on filedocumented in this encounter Care Teams Field Technical Assistant Relationship Specialty Start Date End Date Gresser, Steph L, MD [address] [place] [address] PCP - General 04/02/12 documented as of this encounter
--- OUTSIDE RECORDS SUMMARY | 2024-05-10 14:48 | XMS_ITS | Referral Summary ---
Author Organization [facility] Address [address] [place] [address] Care Team Providers Care Loader Operator Supervisor Name Role Phone Steph Schulz MD Primary Care Provider [phone] Social History Tobacco Use Types Packs/Day Years Used Date Smoking Tobacco: Never Assessed Comments Unknown Sex and Gender Information Value Date Recorded Sex Assigned at Not on file Legal Sex Female 18:39 EST Gender Identity Not on file Sexual Orientation Not on file Plan of Treatment Not on file Care Teams Loader Operator Supervisor Relationship Specialty Start Date End Date Steph Schulz MD [address] [place] [address] PCP - General 04/02/12
--- OUTSIDE RECORDS SUMMARY | 2024-05-10 14:48 | XMS_ITS | Encounter Summary ---
Author Organization [facility] Address [address] [place] [address] Care Team Providers Care Resort Housekeeper Name Role Phone Steph Schulz MD Primary Care Provider [phone] Encounter Details Date Type Department Care Team (Late st Contact Info) Description 05/31/2019 Lab Requisition [facility] Pathology & Laboratory Medicine - [address] [address] Unknown, Provider, Social History Tobacco Use Types [...] IgE 15 <158 IU/mL 06/03/2019 11:20 EST [facility] Blood VENOUS BLOOD / Unknown 05/31/2019 11:40 EST 05/31/2019 16:47 EST us Provider Unknown MD CHEMISTRY & BLOOD GAS ORDERA BLES Final Result [facility] [address] [place] [address] documented in this encounter Visit Diagnoses Not on filedocumented in this encounter Care Teams Resort Housekeeper Relationship Specialty Start Date End Date Steph Schulz MD [address] [place] [address] PCP - General 04/02/12 documented as of this encounter
--- OUTSIDE RECORDS SUMMARY | 2024-05-10 14:48 | XMS_ITS | Encounter Summary ---
Author Organization [facility] Address [address] [place] [address] Care Team Providers Care Mailroom Supervisor Name Role Phone Steph Schulz MD Primary Care Provider [phone] Encounter Details Date Type Department Care Team (Late st Contact Info) Description 05/01/2020 Lab Requisition [facility] Pathology & Laboratory Medicine - [facility] [address] [place], [place] [phone] Outr Resulting Lab, Provider Social History Tobacco [...] 20 - 40 mg/dL 05/04/2020 9:28 EST [facility] Blood VENOUS BLOOD / Unknown 04/30/2020 16:15 EST 05/01/2020 17:28 EST us Provider Outr Resulting Lab CHEMISTRY & BLOOD GA S ORDERABLES Final Result [facility] [address] [place] [address] documented in this encounter Visit Diagnoses Not on filedocumented in this encounter Care Teams Mailroom Supervisor Relationship Specialty Start Date End Date Steph Schulz MD [address] [place] [address] PCP - General 04/02/12 documented as of this encounter
--- OUTSIDE RECORDS SUMMARY | 2024-05-10 14:48 | XMS_ITS | Encounter Summary ---
Author Organization [facility] Address [address] [place] [address] Care Team Providers Care Medical Services Assistant Name Role Phone Steph Schulz MD Primary Care Provider [phone] Encounter Details Date Type Department Care Team (Late st Contact Info) Description 10/01/2019 Lab Requisition [facility] Pathology & Laboratory Medicine - [facility] [address] [place], [place] [phone] Outr Resulting Lab, Provider Social History Tobacco [...] Unknown 10/01/2019 11:40 EDT 10/01/2019 15:43 EDT us Provider Outr Resulting Lab MICROBIOLOGY - GENER AL ORDERABLES Final Result [facility] [address] [place] [address] * COVID-19 TESTING (10/01/2019 11:40 EDT) COVID-19 rt-PCR Result Negative Negative 10/01/2019 20:43 EDT [facility] Comment: This test has not [...] history, and epidemiological information. Performed on the [employer] instrument Performing Lab [place] [facility] 10/01/2019 20:43 EDT [facility] Swab ENTIRE NASOPHARYNX / Unknown 10/01/2019 11:40 EDT 10/01/2019 15:43 EDT us Provider Outr Resulting Lab MICROBIOLOGY - GENER AL ORDERABLES Final Result [facility] [address] [place] [address] documented in this encounter Visit Diagnoses Not on filedocumented in this encounter Care Teams Medical Services Assistant Relationship Specialty Start Date End Date Steph Schulz MD [address] [place] [address] PCP - General 04/02/12 documented as of this encounter
--- OUTSIDE RECORDS SUMMARY | 2024-05-10 14:49 | XMS_ITS | Encounter Summary ---
Author Organization [facility] [place] [address] Care Team Providers Care Powder Coat Painter Name Role Phone JairoZeny bentley JESUS ALBERTO Primary Care Provider [phone] Encounter Details Date Type Department Care Team (Late st Contact Info) Description 11/13/2023 Telephone Hematology/Oncology at [address] [phone] Mary Nails INSPECTOR BALANCE WHEEL MOTION [address] [place] [address] [place] [address] Social History Tobacco Use Types [...] place to sleep or slept in a fpc (including now)? No 04/29/2021 Sex and Gender Information Value Date Recorded Sex Assigned at Not on file Gender Identity Not on file Sexual Orientation Not on file documented as of this encounter Plan of Treatment Upcoming Encounters Date Type Department Care Team (Late st Contact Info) Description 01/01/2025 2:00 PM EDT Office Visit Hematology/Oncology at [address] [phone] Jeffery Sanz MD [facility] DR HEMATOLOGY [place] [address] Mary Nails APRN [address] [place] [address] DR MEDICAL ONCOLOGY [place], [place] [address] 01/01/2025 2:30 PM EDT Infusion Hematology Oncology at [address] [phone] 01/14/2025 11:00 AM EDT Laboratory Appointment Lab [address] [place] [phone] 01/14/2025 1:[address] [place] [phone] Regino Carolina MD [facility] [place] [address] 01/14/2025 2:00 PM EDT Office [place] [address] Regino Carolina MD [facility] [place] [address] documented as of this encounter Visit Diagnoses Diagnosis Malignant neoplasm of upper-outer quadrant of left breast in female, estrogen receptor positive documented in this encounter Care Teams Powder Coat Painter Relationship Specialty Start Date End Date Zeny James APRN [address] [place] [address] PCP - General Family Medicine 09/23/19 documented as of this encounter
--- OUTSIDE RECORDS SUMMARY | 2024-05-10 14:49 | XMS_ITS | Encounter Summary ---
Author Organization [facility] Address [facility] [place] [address] Care Team Providers Care Glue Maker Bone Name Role Phone Zeny James APRN Primary Care Provider [phone] Reason for Visit * Consultation (Routine) - Closed Specialty Diagnoses / Procedures Referred By Nir potts Referred To Contact Dermatology Diagnoses Basal cell carcinoma of nose Estela Velasquez MD [facility] DR MARCUS [place] [address] Jayro Mack MD [facility] DR MARCUS R[place] [address] Referral ID Status Reason Start Date Expiration Date V isits Requested Visits Authorized [id number] Closed Consult, Test & Treat 07/12/2023 07/11/2024 1 1 Encounter Details Date Type Department Care Team (Latest Contact Info) Description 09/07/2023 11:00 AM EDT Procedure visit Dermatology at [facility] [address] [place] [address] Jayro Mack MD [facility] DR MARCUS RICHARD-DERMATOLOGY [place], [place] [phone] Basal cell carcinoma (BCC) of right side [...] is performed when alternative procedures such as [id number] stitching is not optimal. Your graft may [...] the first week unless told differently. Some ekg tech may need to be delayed or delegated [...] as often as is recommended by your aircraft de icer installer, for new skin cancers. This is once [...] it. If after hours, please call the ordering box operator or [phone] and ask for the aircraft de icer installer on-call. If you have any non-urgent questions or concerns, please feel free to call my office or contact me through our patient portal, [employer], at [email or web address] How to contact us during business hours Dermatology at [facility] Road: Mohs scheduling or Mohs follow-up appointments: [phone] documented in this encounter Progress Notes * [...] and follow up with his or her aircraft de icer installer or other skin provider. 5. Discussed avoiding [...] Surgeon and Pathologist: Jayro Mack MD PhD Nursing/Manager [employer](s): Rosa Gomez LPN, Burr Mill Operator (s): Gerber Joyner CMA Pre-operative diagnosis: Basal [...] The site was confirmed with the patient/authorized field service representative/referring physician and/or a photograph form time [...] Donor site: Right Nostril INDICATION: repair and synagogue of anatomy/function PROCEDURE: Full-thickness skin graft A [...] epinephrine used: None Note initiated by Rosa Gomez LPN has performed the documentation for this encounter in the presence of and acting as a scribe for Dr. Mack I performed the above scribed service and agree with the accuracy of the documentation in this encounter. Reviewed and signed by: Jayro Mack MD PhD Mohs Micrographic Surgery and Dermatologic Oncology Department of Dermatology [address] [place] [address] documented in this encounter Plan of Treatment Upcoming Encounters Date Type Department Care Team (Late st Contact Info) Description 01/01/2025 2:00 PM EDT Office Visit Hematology/Oncology at [address] [phone] Jeffery Sanz MD [facility] DR HEMATOLOGY [place] [address] Mary Nails APRN [address] [place] [address] DR MEDICAL ONCOLOGY [employer], [place] [id number] 01/01/2025 2:30 PM EDT Infusion Hematology Oncology at [address] [phone] 01/14/2025 11:00 AM EDT Laboratory Appointment Lab [address] [phone] 01/14/2025 1:[address] [place] [place] [phone] Regino Carolina MD [facility] [place] [address] 01/14/2025 2:00 PM EDT Office [place] [phone] Regino Carolina MD [facility] [place] [address] documented as of this encounter Visit Diagnoses Diagnosis Basal cell carcinoma (BCC) of right side of nose documented in this encounter Care Teams Glue Maker Bone Relationship Specialty Start Date End Date Zeny James APRN [address] [place] [address] [address] [place] [address] PCP - General Family Medicine 09/23/19 documented as of this encounter
--- OUTSIDE RECORDS SUMMARY | 2024-05-10 14:49 | XMS_ITS | Encounter Summary ---
Author Organization [facility] Address [facility] [place] [address] Care Team Providers Care Music Promoter Name Role Phone Zeny James APRN Primary Care Provider Reason for Visit * Reason Onset Date Comments Bleeding/Bruising 09/08/2023 Encounter Details Date Type Department Care Team (Late st Contact Info) Description 09/08/2023 Telephone Dermatology at [facility] [address] [place] [address] Charu Hester, RN Bleeding/Bruising Social History Tobacco Use Types [...] 2:00 PM EDT Office Visit Hematology/Oncology at [address] [phone] Jeffery Sanz MD [facility] DR HEMATOLOGY AND ONCOL[facility]Y [facility] [place] [address] Mary Nails APRN [address] [place] [address] DR MEDICAL ONCOLOGY [place], [place] [address] 01/01/2025 2:30 PM EDT Infusion Hematology Oncology at [address] [phone] 01/14/2025 11:00 AM EDT Laboratory Appointment Lab 3L [place] [address] 01/14/2025 1:[address] [place] [place] [phone] Regino Carolina MD [facility] [place] [address] 01/14/2025 2:00 PM EDT Office [place] [phone] Regino Carolina MD [facility] [place] [address] documented as of this encounter Visit Diagnoses Not on filedocumented in this encounter Care Teams Music Promoter Relationship Specialty Start Date End Date Zeny JamesJESUS ALBERTO [address] [place], [place] [address] PCP - General Family Medicine 09/23/19 documented as of this encounter
--- OUTSIDE RECORDS SUMMARY | 2024-05-10 14:49 | XMS_ITS | Encounter Summary ---
[place] [address] Care Team Providers Care Ship Manager Name Role Phone Zeny James APRN Primary Care Provider [phone] Reason for Referral * Diagnostic Test (Routine) - Closed Specialty Diagnoses / Procedures Referred By Contac t Referred To Contact Radiology Diagnoses IPMN (intraductal papillary mucinous neoplasm) Procedures CT Abdomen w Contrast Regino Carolina MD [facility] [place] [address] [facility] [place] [address] Referral ID Status Reason Start Date Expiration Date V isits Requested Visits Authorized [id number] Closed Specialty Service Requested 11/02/2023 05/04/2025 1 1 Reason for Visit * Diagnostic Test (Routine) - Closed Specialty Diagnoses / Procedures Referred By Contac t Referred To Contact Radiology Diagnoses IPMN (intraductal papillary mucinous neoplasm) Procedures CT Abdomen w Contrast Regino Carolina MD [facility] [place] [address] [facility] [place] [address] Referral ID Status Reason Start Date Expiration Date V isits Requested Visits Authorized [id number] Closed Specialty Service Requested 11/02/2023 05/04/2025 1 1 Encounter Details Date Type Department Care Team (Late st Contact Info) Description 01/09/2024 12:32 PM EDT - 01/09/2024 11:59 PM EDT Hospital En[place] [address] Regino Carolina MD [facility] [place] [address] IPMN (intraductal papillary mucinous neoplasm) Discharge Disposition: [...] Sig Dispensed Refills Start Date End Date anastrozole (Arimidex) 1 mg tabletIndications: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 10 capsule 09/07/2023 cranberry fruit extract (CRANBERRY CONCENTRATE ORAL) Take 1 tablet by mouth Daily at Noon. mubirw-gcewtjxm-srpz ase DR (Creon) 24,000-76,000 -120,[address] capsule TAKE 3 CAPSULES BY MOUTH TID WITH MEALS. TAKE 1 CAPSULE WITH SNACKS DAILY (10 CAPSULES/DAY) 900 capsule 3 01/11/2023 ferrous sulfate EC (FeroSul) 325 mg (65 mg iron) DR tablet Take 325 mg by mouth See Admin Instructions. Every other day denosumab (PROLIA SUBQ) Inject subcutaneously Q6 Months. sennosides/docusate sodium (SENNA WITH DOCUSATE SODIUM ORAL) Take 1 tablet by mouth nightly. hydroCHLOROthiazide (Hydrodiuril) 12.5 mg Tablet Take 12.5 mg by mouth daily. omeprazole (PriLOSEC) 20 mg Capsule, Delayed Release(E.C.) Take 20 mg by mouth daily. Blood-Glucose Meter Misc 1 Application by [facility].(Non-Drug; Combo Route) route 3 times daily (before meals). 1 each 04/11/2020 vitamin E (vitamin E) 400 unit Capsule Take 1 capsule by mouth daily. 03/31/2020 acetaminophen (Tylenol) 500 mg Tablet Take 2 tablets by mouth every 6 hours as needed for Pain. 03/31/2020 b complex vitamins Capsule Take 1 capsule by mouth daily. pravastatin (Pravachol) 20 mg Tablet Take 20 mg by mouth daily. albuteroL 90 mcg/actuation HFA Aerosol Inhaler Inhale 1-2 puffs into the lungs every 4 hours as needed. 01/10/2020 Wixela Inhub 500-50 mcg/dose Disk with Device Inhale 1 puff into the lungs nightly. 08/20/2019 cholecalciferol, Vitamin D3, 1,000 unit Capsule Take 4,000 Units by mouth daily. multivit,iron,minera ls/lutein (CENTRUM SILVER ULTRA WOMEN'S ORAL) Take 1 tablet by mouth daily. magnesium oxide 400 mg magnesium Capsule Take 1 capsule by mouth daily. fish oil-omega-3 fatty acids 1,000 mg Capsule Take 1 g by mouth daily. aspirin EC 81 mg Tablet, Delayed Release (E.C.) Take 81 mg by mouth daily. documented as of this encounter Plan of Treatment Upcoming Encounters Date Type Department Care Team (Late st Contact Info) Description 01/01/2025 2:00 PM EDT Office Visit Hematology/Oncology at [address] [phone] Jeffery Sanz MD [facility] DR [place] [address] Mary Nails APRN [address] [place] [address] DR MEDICAL ONCOLOGY [place], [place] [id number] 01/01/2025 2:30 PM EDT Infusion Hematology Oncology at [address] [phone] 01/14/2025 11:00 AM EDT Laboratory Appointment Lab [address] [phone] 01/14/2025 1:[address] [place] [phone] Regino Carolina MD [facility] [place] [address] 01/14/2025 2:00 PM EDT Office Visit [place] [phone] Regino Carolina MD [facility] [place] [address] documented as of this encounter Procedures Procedure Name Priority Date/Time Associated Diagnosis Comments CT ABDOMEN W CONTRAST Routine 01/09/2024 1:47 PM EDT IPMN (intraductal papillary mucinous neoplasm) documented in this encounter Results * CT Abdomen w Contrast (01/09/2024 1:47 PM EDT) WORKSTATION ID [id number] RAD Anatomical Region Laterality Modality Abdomen Computed Tomogra phy Impressions 01/12/2024 8:47 AM EDT 1. ??Stable postsurgical changes following Whipple. 2. ??Unchanged 5 mm lesion in the pancreatic tail. Thank you for letting us participate in the care of this patient. ??If you are a health care provider and have any questions regarding this report, please contact the number below. ??For patients who have questions please contact the health sub acute care nurse that requested your imaging first. ? Narrative 01/12/2024 8:47 AM EDT EXAMINATION: CT ABDOMEN W CONTRAST CLINICAL HISTORY: IPMNs status post robotic Whipple 2019. ??Annual CT imaging to follow remnant pancreas for ductal dilation, cysts or concern for recurrence of IPMN. D49.0, Neoplasm of unspecified behavior of digestive system TECHNIQUE: Helical CT of the abdomen following the intravenous administration of contrast. Administered 80.0 ml of OMNIPAQUE 350.00 mg/ml. Oral contrast was not administered. COMPARISON: CT 01/03/2023 FINDINGS: Lower chest: Mild bibasilar atelectasis. Postsurgical changes of the right chest wall. Liver: Unchanged punctate low-density lesion in the dome is unchanged from prior, likely a cyst. An adjacent linear low-density lesion along a distal portal triad in the right dome may represent focal dilation of the bile duct or a tiny oblong cyst. Bile ducts: Possible mildly dilated intrahepatic duct at the right dome. The biliary-enteric anastomosis appears patent. Gallbladder: Absent. Pancreas: The remnant pancreas is markedly atrophic, however, without main duct dilation. Stable 5 mm low-attenuation area in the tail, presumed cyst versus interdigitating the fat. Small size limits further characterization. Spleen: Normal. Adrenals: Normal. Kidneys: A few bilateral subcentimeter lesion are unchanged, likely cysts. Bilateral extrarenal pelves. No hydronephrosis. Vasculature: No abdominal aortic aneurysm. The portal vein is patent. Lymph Nodes: No enlarged lymph nodes. Bowel: Status post Whipple reconstruction. Moderate distention of the remnant stomach. Patent GJ anastomosis. No dilated small or large bowel in the imaged abdomen. Peritoneum and retroperitoneum: No free fluid or loculated fluid collection. No pneumoperitoneum. No mesenteric inflammation. Abdominal wall: Tiny fat-containing supraumbilical hernia through a 0.5 cm defect containing fat and a small amount of soft tissue density which may represent fat necrosis. 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 Chronic left lower lobe fracture deformities. Unchanged mild/moderate height loss of T10. Grade 1 anterolisthesis at L5-S1. Procedure Note Karen Flowers MD - 01/12/2024 EXAMINATION: CT ABDOMEN W CONTRAST CLINICAL HISTORY: IPMNs status post robotic Whipple 2019. Annual CTimaging to follow remnant pancreas for ductal dilation, cysts or concern forrecurrence of IPMN. D49.0, Neoplasm of unspecified behavior of digestive system TECHNIQUE: Helical CT of the abdomen following the intravenousadministration of contrast. Administered 80.0 ml of OMNIPAQUE 350.00 mg/ml. Oral contrastwas not administered. COMPARISON: CT 01/03/2023 FINDINGS: Lower chest: Mild bibasilar atelectasis. Postsurgical changes of the rightchest wall. Liver: Unchanged punctate low-density lesion in the dome is unchangedfrom prior, likely a cyst. An adjacent linear low-density lesion along adistal portal triad in the right dome may represent focal dilation of the bileduct or a tiny oblong cyst. Bile ducts: Possible mildly dilated intrahepatic duct at the right dome.The biliary-enteric anastomosis appears patent. Gallbladder: Absent. Pancreas: The remnant pancreas is markedly atrophic, however, without mainduct dilation. Stable 5 mm low-attenuation area in the tail, presumed cystversus interdigitating the fat. Small size limits further characterization. Spleen: Normal. Adrenals: Normal. Kidneys: A few bilateral subcentimeter lesion are unchanged, likelycysts. Bilateral extrarenal pelves. No hydronephrosis. Vasculature: No abdominal aortic aneurysm. The portal vein is patent. Lymph Nodes: No enlarged lymph nodes. Bowel: Status post Whipple reconstruction. Moderate distention of theremnant stomach. Patent GJ anastomosis. No dilated small or large bowel in theimaged abdomen. Peritoneum and retroperitoneum: No free fluid or loculated fluidcollection. No pneumoperitoneum. No mesenteric inflammation. Abdominal wall: Tiny fat-containing supraumbilical hernia through a 0.5cm defect containing fat and a small amount of soft tissue density whichmay represent fat necrosis. 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 Chronic left lower lobe fracture deformities. Unchanged mild/moderateheight loss of T10. Grade 1 anterolisthesis at L5-S1. IMPRESSION 1. Stable postsurgical changes following Whipple. 2. Unchanged 5 mm lesion in the pancreatic tail. Thank you for letting us participate in the care of this patient. If youare a health care provider and have any questions regarding this report,please contact the number below. For patients who have questions please contactthe health sub acute care nurse that requested your imaging first. Regino Carolina [...] Intravenous, ONCE PRN, 1 dose, Starting on Mon01/09/24 at 1347, Until Mon01/09/24 at 1348, Per Protocol, Warning Vesicant/Irritant Medication , Radiology Contrast, Routine Given 01/09/2024 1:48 PM EDT 80 mLs documented in this encounter Care Teams Ship Manager Relationship Specialty Start Date End Date Zeny James APRN [address] [place] [address] PCP - General Family Medicine 09/23/19 documented as of this encounter
--- OUTSIDE RECORDS SUMMARY | 2024-05-10 14:49 | XMS_ITS | Encounter Summary ---
[place] [address] Care Team Providers Care Fiberglass Product Tester Name Role Phone Zeny James APRN Primary Care Provider Reason for Referral * Diagnostic Test (Routine) - Closed Specialty Diagnoses / Procedures Referred By Nir potts Referred To Contact Radiology Diagnoses IPMN (intraductal papillary mucinous neoplasm) Procedures CT Abdomen w Contrast Regino Carolina MD [facility] [place] [address] [facility] [place] [address] Referral ID Status Reason Start Date Expiration Date V isits Requested Visits Authorized [id number] Closed Specialty Service Requested 11/02/2023 05/04/2025 1 1 Encounter Details Date Type Department Care Team (Late st Contact Info) Description 11/02/2023 Orders [place] [phone] Regino Carolina MD [facility] [place] [address] IPMN (intraductal papillary mucinous neoplasm) [...] place to sleep or slept in a snf (including now)? No 04/29/2021 Sex and Gender Information Value Date Recorded Sex Assigned at Not on file Gender Identity Not on file Sexual Orientation Not on file documented as of this encounter Plan of Treatment Upcoming Encounters Date Type Department Care Team (Late st Contact Info) Description 01/01/2025 2:00 PM EDT Office Visit Hematology/Oncology at [address] [phone] Jeffery Sanz MD [facility] DR HEMATOLOGY [place] [address] Mary Nails APRN [address] [place] [address] [place] [address] 01/01/2025 2:30 PM EDT Infusion Hematology Oncology at [address] [phone] 01/14/2025 11:00 AM EDT Laboratory Appointment Lab [place] [address] 01/14/2025 1:[address] [place] [phone] Regino Carolina MD [facility] GENERAL SURGERY [place], [place] [phone] 01/14/2025 2:00 PM EDT Office [place] [phone] Regino Carolina MD [facility] GENERAL SURGERY [place], [place] [phone] documented as of this encounter Results * CT Abdomen w Contrast (01/09/2024 1:47 PM EDT) Ze-gen WORKSTATION ID [id number] [facility][NOTE 3] Anatomical Region Laterality Modality Abdomen Computed Tomogra [...] who have questions please contact the health childcare center director that requested your imaging first. ? Electronically signed by: KAREN FLOWERS MD, [facility] ([phone]), at 01/12/2024 8:47 AM Narrative 01/12/2024 8:47 AM EDT EXAMINATION: CT ABDOMEN W CONTRAST CLINICAL HISTORY: IPMNs status post robotic Whipple 2020. ??Annual CT imaging to follow remnant pancreas [...] patients who have questions please contactthe health childcare center director that requested your imaging first. Electronically signed by: KAREN FLOWERS MD, [facility]([phone]), at 01/12/2024 8:47 AM Regino Carolina MD IMG CT ORDERABLES documented in this encounter Visit Diagnoses Diagnosis IPMN (intraductal papillary mucinous neoplasm) Neoplasm of unspecified nature of digestive system IPMN (intraductal papillary mucinous neoplasm) Neoplasm of unspecified nature of digestive system documented in this encounter Care Teams Fiberglass Product Tester Relationship Specialty Start Date End Date Zeny James APRN [address] [place] [address] PCP - General Family Medicine 09/23/19 documented as of this encounter
--- OUTSIDE RECORDS SUMMARY | 2024-05-10 14:49 | XMS_ITS | Encounter Summary ---
[place] [address] Care Team Providers Care Cooking Instructor Name Role Phone Zeny James APRN Primary Care Provider Reason for Referral * Diagnostic Test (Routine) - New Request Specialty Diagnoses / Procedures Referred By Nir potts Referred To Contact Radiology Diagnoses IPMN (intraductal papillary mucinous neoplasm) Procedures CT Abdomen w Contrast Regino Carolina MD [facility] [place] [address] [facility] [place] [address] Referral ID Status Reason Start Date Expiration Date Visits Requested Visits Authorized [id number] New Request Specialty Service Requested 01/09/2024 07/08/2025 1 1 Encounter Details Date Type Department Care Team (Late st Contact Info) Description 01/09/2024 3:00 PM EDT Office [place] [address] Regino Carolina MD [facility] [place] [address] IPMN (intraductal papillary mucinous neoplasm) [...] Sign Reading Time Taken Comments Blood Pressure 163/78 01/09/2024 3:01 PM EDT Pulse 79 01/09/2024 3:01 PM EDT Temperature 36.2 ??C (97.1 ??F) 01/09/2024 3:01 PM ED T Respiratory Rate - - Oxygen Saturation 99% 01/09/2024 3:01 PM EDT Inhaled Oxygen Concentration - - Weight 49.4 kg (108 lb 12.8 oz) 01/09/2024 3:01 PM EDT Height 154.9 cm (5' 0.98) 01/09/2024 3:01 PM ED T Body Mass Index 20.57 01/09/2024 3:01 PM EDT documented in this encounter Progress Notes * Regino Carolina MD - 01/09/2024 3:00 PM EDT Surgical Oncology Office Note Date: 01/09/2024 Primary physician: Zeny James APRN Referring physician: Migue Urrutia MD Reason for evaluation: History of robotic whipple on 03/23/2020 for 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 Interval History: Mrs. Serrano is now a 78 year woman from [place], [place]. She presented to [facility] ED on 2019 with epigastric abdominal [...] of pancreatic duct/cyst fluid cytopathology per Acc# [id number] showed neoplastic Cells Present. Abundant macrophages, mixed leukocytes present and a single group of bland-appearing columnar cells. Cell block was examined. Note: The fluid CEA level is consistent with neoplastic process. 11/25/2019 surgical oncology consult. Maricruz was seen for surgery consultation. She was by herself. She described the episode that brought her to the ED at [facility] as the first time she is [...] showed marginal ulcer at GJ and PICC TPN. Discharged to home on TPN. Pathology: 03/23/2020 Acc# [id number] Surgical Pathology DIAGNOSIS A - Portal vein [...] for diagnostic abnormality. Objective: Vitals: Blood pressure 163/78, pulse 79, temperature 36.2 ??C (97.1 ??F), temperature source Temporal, height 154.9 cm (5' 0.98), weight 49.4 kg (108 lb 12.8 oz), SpO2 99%. 01/09/2024 she weighed 108 pounds. 01/03/2023 she weighed 104 pounds. 12/28/2021 she weighed 107 pounds. 12/01/2020 she weighed 114 pounds. 09/30/2019 she weighed 113 pounds. 04/21/2019 she weighed 118 pounds. 01/28/2020 she weighed 123 pounds. 12/18/2019 she weighed 120 pounds. General: Maricruz looks well. She is by herself. Abdomen: Soft, non distended and nontender. The laparoscopic and robotic port scars are barely visible with no hernias. Extremities: No peripheral edema and symmetric bilaterally. Assessment and plans: Maricruz was seen today for her annual follow-up appointment with coordinated CT abdomen imaging to evaluate the remnant pancreas status post Whipple for IPMN with high-grade dysplasia. We have been following her pancreas body and tail annually since her Whipple surgery for recurrence of the IPMN. I looked at the images today with her and the pancreas looks still atrophic but there is no ductal dilation or cysts forming-no evidence of recurrent IPMN. The final radiographic report is still pending but this is all very reassuring and good news. We discussed a plan for me to see her back 1 more time in 1 year which will be her fifth year of surveillance with imaging and I ordered a CT abdomen and hopefully if there are no signs of recurrence then we can stop any radiographic annual imaging. Zeny, her primary care nurse practitioner to keep a close eye on her and has been with her since I remember Maricruz at the time of her Whipple and she is taking vitamin D 4000 units a day, iron 3 days a week and is on omeprazole 20 mg daily as well as Creon which will be a lifelong medication for her. She says that she has prediabetes but is not on any medications. She is in the middle [place] but other than that really seems to be doing well. I will look forward to seeing her next year. Jennifer Carolina MD 01/09/2024 3:25 PM documented in this encounter Plan of Treatment Upcoming Encounters Date Type Department Care Team (Late st Contact Info) Description 01/01/2025 2:00 PM EDT Office Visit Hematology/Oncology at [address] [phone] Jeffery Sanz MD [facility] DR [place] [address] Mary Nails APRN [address] [place] [address] [place] [address] 01/01/2025 2:30 PM EDT Infusion Hematology Oncology at [address] [phone] 01/14/2025 11:00 AM EDT Laboratory Appointment Lab [place] [address] 01/14/2025 1:[address] [place] [address] Regino Carolina MD [facility] [place] [address] 01/14/2025 2:00 PM EDT Office [place] [address] Regino Carolina MD [facility] [place] [address] Scheduled Orders Name Type Priority Associated Diagnoses Orde r Schedule CT Abdomen w Contrast Imaging Routine IPMN (intraductal papillary mucinous neoplasm) Expected: 01/08/2025 (Approximate), Expires: 07/10/2025 Creatinine Lab STAT IPMN (intraductal papillary mucinous neoplasm) Expected: 01/08/2025 (Approximate), Expires: 01/09/2025 documented as of this encounter Visit Diagnoses Diagnosis IPMN (intraductal papillary mucinous neoplasm) Neoplasm of unspecified nature of digestive system documented in this encounter Care Teams Cooking Instructor Relationship Specialty Start Date End Date Zeny James APRN [address] [place] [address] PCP - General Family Medicine 09/23/19 documented as of this encounter
--- OUTSIDE RECORDS SUMMARY | 2024-05-10 14:49 | XMS_ITS | Encounter Summary ---
Author Organization [facility] Address [facility] [place] [address] Care Team Providers Care Ophthalmology Surgical Technician Name Role Phone Zeny James APRN Primary Care Provider Encounter Details Date Type Department Care Team (Late st Contact Info) Description 11/01/2023 Orders [place] [address] Regino Carolina MD [facility] [place] [address] IPMN (intraductal papillary mucinous neoplasm) Social History [...] place to sleep or slept in a detention (including now)? No 04/29/2021 Sex and Gender Information Value Date Recorded Sex Assigned at Not on file Gender Identity Not on file Sexual Orientation Not on file documented as of this encounter Plan of Treatment Upcoming Encounters Date Type Department Care Team (Late st Contact Info) Description 01/01/2025 2:00 PM EDT Office Visit Hematology/Oncology at [address] [phone] Jeffery Sanz MD [facility] [place] [address] Mary Nails APRN [address] [place] [address] [place] [address] 01/01/2025 2:30 PM EDT Infusion Hematology Oncology at [address] [phone] 01/14/2025 11:00 AM EDT Laboratory Appointment Lab [address] [phone] 01/14/2025 1:[address] [place] [phone] Regino Carolina MD [facility] [place] [address] 01/14/2025 2:00 PM EDT Office [place] [address] Regino Carolina MD [facility] [place] [address] documented as of this encounter Visit Diagnoses Diagnosis IPMN (intraductal papillary mucinous neoplasm) Neoplasm of unspecified nature of digestive system documented in this encounter Care Teams Ophthalmology Surgical Technician Relationship Specialty Start Date End Date Zeny James APRN [address] [place] [address] PCP - General Family Medicine 09/23/19 documented as of this encounter
--- OUTSIDE RECORDS SUMMARY | 2024-05-10 14:49 | XMS_ITS | Encounter Summary ---
Author Organization [facility] Address [facility] [place] [address] Care Team Providers Care Machine Plate Stacker Name Role Phone Zeny James MENTAL HEALTH ASSISTANT Primary Care Provider Encounter Details Date Type [...] 2:00 PM EDT Office Visit Hematology/Oncology at [address] [phone] Jeffery Sanz MD [facility] DR [place] [address] Mary Nails APRN [address] [place] [address] DR MEDICAL ONCOLOGY [place], [place] [id number] 01/01/2025 2:30 PM EDT Infusion Hematology Oncology at [address] [phone] 01/14/2025 11:00 AM EDT Laboratory Appointment Lab [address] [place] [phone] 01/14/2025 1:[address] [place] [phone] Regino Carolina MD [facility] [place] [address] 01/14/2025 2:00 PM EDT Office [place] [phone] Regino Carolina MD [facility] [place] [address] documented as of this encounter Visit Diagnoses Not on filedocumented in this encounter Care Teams Machine Plate Stacker Relationship Specialty Start Date End Date Zeny James APRN [address] [facility] 1 [place] [address] PCP - General Family Medicine 09/23/19 documented as of this encounter
--- OUTSIDE RECORDS SUMMARY | 2024-05-10 14:49 | XMS_ITS | Encounter Summary ---
Author Organization [facility] Address [facility] [place] [address] Care Team Providers Care Command Post Craftsman Name Role Phone Zeny James BATTERY HAND Primary Care Provider [phone] Reason for Visit * Reason Comments Other Prolia * Treatment/Therapy Plan Authorization (Routine) - Authorized Specialty Diagnoses / Procedures Referred By Contparish t Referred To Contact Hematology and Oncology Diagnoses Malignant neoplasm of left breast in female, estrogen receptor positive, unspecified site of breast Osteopenia, unspecified location shelter current use of aromatase inhibitor Procedures TC DENOSUMAB, 1MG, INJECTION [id number] PROLIA Jeffery Sanz MD [facility] DR [place] [address] Jeffery Sanz MD [facility] DR HEMAT[place] [address] Referral ID Status Reason Start Date Expiration Date V isits Requested Visits Authorized [id number] Authorized 04/17/2022 07/06/2024 99 99 Encounter Details Date Type Department Care Team (Late st Contact Info) Description 05/01/2024 2:30 PM EST Infusion Hematology Oncology at [address] [phone] Malignant neoplasm of left breast in female, estrogen receptor positive, unspecified site of breast; Osteopenia, unspecified location; shelter current use of aromatase inhibitor Social History [...] as of this encounter Progress Notes * Juanita Christianson RN - 05/01/2024 2:30 PM EST INFUSION THERAPY ADMINISTRATION NOTES DIAGNOSIS: breast cancer PROTOCOL:na CYCLE #: very 6 months REASON FOR VISIT: prolia SUBJECTIVE Linda Serrano offers no complaints. OBJECTIVE LAB DATA: Labs reviewed and found adequate for treatment. REACTIONS (DESCRIPTION, TIME, INTERVENTION AND EFFECTIVENESS) none ASSESSMENT Linda Serrano was awake, alert and he tolerated treatment well. PLAN Return to clinic per routine. documented in this encounter Plan of Treatment Upcoming Encounters Date Type Department Care Team (Late st Contact Info) Description 01/01/2025 2:00 PM EDT Office Visit Hematology/Oncology at [address] [phone] Jeffery Sanz MD [facility] DR [place] [address] Mary Nails APRN [address] [place] [address] DR MEDICAL ONCOLOGY [place], [place] [id number] 01/01/2025 2:30 PM EDT Infusion Hematology Oncology at [address] [phone] 01/14/2025 11:00 AM EDT Laboratory Appointment Lab [address] [place] [phone] 01/14/2025 1:[address] [place] [address] Regino Carolina MD [facility] [place] [address] 01/14/2025 2:00 PM EDT Office [place] [address] Regino Carolina MD [facility] [place] [address] documented as of this encounter Visit Diagnoses Diagnosis Malignant neoplasm of left breast in female, estrogen receptor positive, unspecified site of breast Osteopenia, unspecified location 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 Monitor patients with severe impairment (CRCL less than 30 mL/minute or on dialysis) due to increased risk of hypocalcemia., Restricted to outpatient use. Requires P&T approval for inpatient use. Use in outpatient setting Given 05/01/2024 2:43 PM EST 60 mg Left Arm documented in this encounter Care Teams Command Post Craftsman Relationship Specialty Start Date End Date Zeny James APRN [address] [place] [address] [address] [facility] [address] [place] [address] PCP - General Family Medicine 09/23/19 documented as of this encounter
--- OUTSIDE RECORDS SUMMARY | 2024-05-10 14:49 | XMS_ITS | Encounter Summary ---
[place] [address] Care Team Providers Care Logistics Analytics Manager Name Role Phone Zeny James FLAME HARDENING MACHINE OPERATOR Primary Care Provider Encounter Details Date Type Department Care Team (Late st Contact Info) Description 01/02/2024 Specialty [place] [phone] Lc Arciniega, [facility] Social History Tobacco Use Types [...] place to sleep or slept in a long-term (including now)? No 04/29/2021 Sex and Gender Information Value Date Recorded Sex Assigned at Not on file Gender Identity Not on file Sexual Orientation Not on file documented as of this encounter Progress Notes * Lc Arciniega [facility] - 01/02/2024 8:42 AM EDT [facility]- Director Clinical Data Assistance Referral [facility] has [...] questions. Patient: Linda Serrano : 1945 Medication: Creon [id number] unit cap Insurance: [employer] (Part D) Medicare Part D?: Yes [place] has been approved, current copay is: unsure Lc Arciniega RPH 01/02/24 8:47 AM documented in this encounter Plan of Treatment Upcoming Encounters Date Type Department Care Team (Late st Contact Info) Description 01/01/2025 2:00 PM EDT Office Visit Hematology/Oncology at [address] [phone] Jeffery Sanz MD [facility] DR HEMAT[place]Y [place] [address] Mary Nails APRN [address] [place] [address] DR MEDICAL ONCOLOGY [place], [place] [id number] 01/01/2025 2:30 PM EDT Infusion Hematology Oncology at [address] [place] [address] 01/14/2025 11:00 AM EDT Laboratory Appointment Lab [address] [place] [address] 01/14/2025 1:[address] [place] [phone] Regino Carolina MD [facility] [place] [address] 01/14/2025 2:00 PM EDT Office [place] [phone] Regino Carolina MD [facility] [place] [address] documented as of this encounter Visit Diagnoses Not on filedocumented in this encounter Care Teams Logistics Analytics Manager Relationship Specialty Start Date End Date Zeny James APRN [address] [place] [address] PCP - General Family Medicine 09/23/19 documented as of this encounter
--- OUTSIDE RECORDS SUMMARY | 2024-05-10 14:49 | XMS_ITS | Encounter Summary ---
Author Organization [facility] Address [facility] [place] [address] Care Team Providers Care English Adjunct Faculty Name Role Phone Zeny James APRN Primary Care Provider Encounter Details Date Type Department Care Team (Late st Contact Info) Description 04/18/2024 11:15 AM EST Office Visit Dermatology at [facility] [address] [place] [address] Michael Cavazos MD [facility] [address] [place] [address] Skin cancer screening; History of basal cell carcinoma (BCC); Lentigines; Reyes angioma; Multiple benign nevi; Seborrheic keratoses; Seborrheic keratosis, inflamed Social History Tobacco Use Types Packs/Day Years [...] as of this encounter Progress Notes * Liza Fernandes, [facility] - 04/18/2024 11:15 AM EST Images from the original note [...] calf, BCC, s/p ED&C 01/11/202101/2010 back SBCC 06/29/23: BCC on the right nostril s/p Mohs AKs LN2 UV Exposure & Protection N [...] thinners: ASA 81mg, Vitamin E, Pravastatin 20mg, [place]-3 Pacemaker, defibrillator, deep brain stimulator, cochlear implant: No History of Present Illness: Linda Serrano is a 78 y.o. Patient returns to clinic today for a full skin exam. Patient reports: - Spot on the right medial canthus present for a few months; pt reports it is asymptomatic. Last visit at Dermatology: 06/29/2023 Last visit with this provider: 06/29/2023 Medications: Reviewed in eD-H Allergies: Reviewed in [...] extremities. Genitalia and buttocks were not examined. Assessment/Plan: #. History of BCC - Well-healed scars per skin history. - No evidence of recurrence; will continue to monitor. #. Seborrheic Keratoses - Stuck on, waxy papules on the trunk and extremities. - Discussed benign nature of lesions and provided reassurance. No treatment necessary at this time. #. Benign Nevi - Scattered medium brown, evenly pigmented macules and papules on the trunk and extremities with reassuring pigment pattern on dermoscopy. - Discussed benign nature of lesions and provided reassurance. Will continue to monitor. #. Lentigines - Scattered light-brown, evenly pigmented, well-demarcated macules on sun-exposed areas of the trunk and extremities. - No worrisome pigmented lesions. Discussed benign nature of lesions and provided reassurance. Willcontinue to monitor. #. Reyes Angiomas - Multiple bright red, well-demarcated papules on the trunk and extremities. - Discussed benign nature of lesions and provided reassurance. No treatment necessary at this time. #. Inflamed Seborrheic Keratosis - Inflamed, stuck on, waxy papule on the right medial canthus. - Discussed benign nature of lesion(s) and provided reassurance. - Due to irritation present on today's exam and history of symptoms, discussed removal with cryotherapy. - Patient elects to proceed with cryotherapy today. Procedure: Destruction of lesion(s) with cryotherapy (LN2). Location(s): As noted above Number: 1 Discussed procedure and expectations including risks and benefits. Verbal consent obtained. Treatedwith LN2. There were no complications; Patient tolerated the procedure well. Post-procedure expectations and wound care were reviewed. Other: Sun protection discussed (protective clothing and SPF30+ broad-spectrum sunscreen) RTC: 1 year for FSE []Note routed to corporate legal secretary [x]Recall placed in scheduling system []Appointment scheduled at checkout Scribe attestation: Liza Fernandes [facility] has performed the documentation for this encounter in the presence of and acting as a scribe for MICHAEL CAVAZOS MD. I performed the above scribed service and agree with the accuracy of the documentation in this encounter. Reviewed and signed by: MICHAEL CAVAZOS MD Dermatology [facility] documented in this encounter Plan of Treatment Upcoming Encounters Date Type Department Care Team (Late st Contact Info) Description 01/01/2025 2:00 PM EDT Office Visit Hematology/Oncology at [address] [phone] Jeffery Sanz MD [facility] DR [place] [address] Mary Nails APRN [address] [place] [address] [place] [address] 01/01/2025 2:30 PM EDT Infusion Hematology Oncology at [address] [phone] 01/14/2025 11:00 AM EDT Laboratory Appointment Lab [place] [address] 01/14/2025 1:[address] [place] [address] Regino Carolina MD [facility] [place] [address] 01/14/2025 2:00 PM EDT Office [place] [address] Regino Carolina MD [facility] [place] [address] documented as of this encounter Visit Diagnoses Diagnosis Skin cancer screening Screening for malignant neoplasm of the skin History of basal cell carcinoma (BCC) Lentigines Other dyschromia Reyes angioma Nevus, non-neoplastic Multiple benign nevi Benign neoplasm of skin, site unspecified Seborrheic keratoses Seborrheic keratosis, inflamed Inflamed seborrheic keratosis documented in this encounter Care Teams English Adjunct Faculty Relationship Specialty Start Date End Date Zeny James APRN [address] [place] [address] PCP - General Family Medicine 09/23/19 documented as of this encounter
--- OUTSIDE RECORDS SUMMARY | 2024-05-10 14:49 | XMS_ITS | Encounter Summary ---
Author Organization [facility] Address [facility] [place] [address] Care Team Providers Care Investigation Manager Name Role Phone Zeny James REFRIGERATION UNIT REPAIRER Primary Care Provider Encounter Details Date Type Department Care Team (Latest Contact Info) Description 04/18/2024 Travel Social History Tobacco Use Types Packs/Day [...] 2:00 PM EDT Office Visit Hematology/Oncology at [address] [phone] Jeffery Sanz MD [facility] DR [place] [address] Mary Nails APRN [address] [place] [address] DR MEDICAL ONCOLOGY [place], [place] [id number] 01/01/2025 2:30 PM EDT Infusion Hematology Oncology at [address] [phone] 01/14/2025 11:00 AM EDT Laboratory Appointment Lab [address] [place] [phone] 01/14/2025 1:[address] [place] [phone] Regino Carolina MD [facility] [place] [address] 01/14/2025 2:00 PM EDT Office [place] [phone] Regino Carolina MD [facility] [place] [address] documented as of this encounter Visit Diagnoses Not on filedocumented in this encounter Care Teams Investigation Manager Relationship Specialty Start Date End Date Zeny James APRN [address] [facility] 1 [place] [address] PCP - General Family Medicine 09/23/19 documented as of this encounter
--- OUTSIDE RECORDS SUMMARY | 2024-05-10 14:49 | XMS_ITS | Encounter Summary ---
[place] [address] Care Team Providers Care Dairy Equipment Repairer Name Role Phone Zeny James MANAGER LOSS PREVENTION Primary Care Provider Encounter Details Date Type Department Care Team (Latest Contact Info) Description 01/09/2024 12:45 PM EDT Laboratory Appointment Lab [place] [phone] IPMN (intraductal papillary mucinous neoplasm) Social History [...] 2:00 PM EDT Office Visit Hematology/Oncology at [address] [phone] Jeffery Sanz MD [facility] DR [place] [address] Mary Nails APRN [address] [place] [address] DR MEDICAL ONCOLOGY [place], [place] [address] 01/01/2025 2:30 PM EDT Infusion Hematology Oncology at [address] [phone] 01/14/2025 11:00 AM EDT Laboratory Appointment Lab [address] [place] [phone] 01/14/2025 1:[address] [place] [phone] Regino Carolina MD [facility] [place] [address] 01/14/2025 2:00 PM EDT Office [place] [phone] Regino Carolina MD [facility] [place] [address] documented as of this encounter Procedures Procedure Name Priority Date/Time Associated Diagnosis Comments CREATININE STAT 01/09/2024 12:25 PM EDT IPMN (intraductal papillary mucinous neoplasm) documented in this encounter Results * (ABNORMAL) Creatinine (01/09/2024 12:25 PM EDT) Creatinine 0.68(L) 0.70 - 1.20 mg/dL 01/09/2024 1:22 PM EDT [facility] Est Glomerular Filtration Rate - Female 90 mL/min/1. 73 m?? 01/09/2024 1:22 PM EDT [facility] Comment: This patient's estimated GFR [...] urine creatinine clearance. Assignment of CKD stage 1 - 5 for patients with an eGFR near the transition point between stages may be based on clinical assessment of muscle mass and symptoms in addition to eGFR. Link: eGFR Calculator [employer] Blood VENOUS BLOOD SPECIMEN / Unknown Venipuncture / Unknown 01/09/2024 12:25 PM EDT 01/09/2024 12:25 PM EDT Regino Carolina MD CHEMISTRY ORDERABL ES [facility] [place] [address] documented in this encounter Visit Diagnoses Diagnosis IPMN (intraductal papillary mucinous neoplasm) Neoplasm of unspecified nature of digestive system documented in this encounter Care Teams Dairy Equipment Repairer Relationship Specialty Start Date End Date Erika JESUS ALBERTO Moura [address] [place] [address] PCP - General Family Medicine 09/23/19 documented as of this encounter
--- OUTSIDE RECORDS SUMMARY | 2024-05-10 14:49 | XMS_ITS | Encounter Summary ---
Author Organization [facility] Address [facility] [place] [address] Care Team Providers Care Metal Furniture Assembler Name Role Phone Zeny James APRN Primary Care Provider [phone] Encounter Details Date Type Department Care Team (Late st Contact Info) Description 11/01/2023 Orders [place] [address] Regino Carolina MD [facility] [place] [address] Exocrine pancreatic insufficiency; IPMN (intraductal papillary mucinous [...] 2:00 PM EDT Office Visit Hematology/Oncology at [address] [phone] Jeffery Sanz MD [facility] DR [place] [address] Mary Nails APRN [address] [place] [address] [place] [address] 01/01/2025 2:30 PM EDT Infusion Hematology Oncology at [address] [phone] 01/14/2025 11:00 AM EDT Laboratory Appointment Lab [address] [place] [phone] 01/14/2025 1:[address] [place] [phone] Regino Carolina MD [facility] [place] [address] 01/14/2025 2:00 PM EDT Office [place] [address] Regino Carolina MD [facility] [place] [address] documented as of this encounter Results * (ABNORMAL) Creatinine (01/09/2024 12:25 PM EDT) Creatinine 0.68(L) 0.70 - 1.20 mg/dL 01/09/2024 1:22 PM EDT [facility] Est Glomerular Filtration Rate - Female 90 mL/min/1. 73 m?? 01/09/2024 1:22 PM EDT [facility] Comment: This patient's estimated [...] EDT Regino Carolina MD CHEMISTRY ORDERABL ES [facility] [place] [address] documented in this encounter Visit Diagnoses Diagnosis Exocrine pancreatic insufficiency Other specified disease of pancreas IPMN (intraductal papillary mucinous neoplasm) Neoplasm of unspecified nature of digestive system documented in this encounter Care Teams Metal Furniture Assembler Relationship Specialty Start Date End Date Zeny James APRN [address] [place] [address] PCP - General Family Medicine 09/23/19 documented as of this encounter
--- OUTSIDE RECORDS SUMMARY | 2024-05-10 14:49 | XMS_ITS | Encounter Summary ---
Author Organization [facility] Address [facility] [place] [address] Care Team Providers Care Gis Consultant Name Role Phone VasuZeny santos JESUS ALBERTO Primary Care Provider [phone] Encounter Details Date Type Department Care Team (Late st Contact Info) Description 05/01/2024 2:00 PM EST Office Visit Hematology/Oncology at [address] [phone] Jeffery Sanz MD [facility] DR HEMATOLOGY [place] [address] Mary Nails AIRFRAME TECHNICIAN [address] [place] [address] DR MEDICAL ONCOLOGY [place], [place] [id number] Malignant neoplasm of upper-outer quadrant of left breast in female, estrogen receptor positive; Osteoporosis, unspecified osteoporosis type, unspecified pathological fracture presence; 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 female. Patient Active Problem List Diagnosis Osteopenia USP current use of aromatase inhibitor Gastroparesis Pre-diabetes Malignant neoplasm of left breast in female, estrogen receptor positive Dx: 12/05/19 [facility] IPMN (intraductal papillary mucinous neoplasm) [place] (actinic [...] specimens had focally suggestive angiolymphatic invasion. ER-pos; CA-neg; HER2=2+. 02/06/01: R MRM/ax dissection. On path, [...] grade lobular carcinoma in situ ER positive, CA negative, HER2 negative PET/CT no mets 12/04, done for IPMN Simple mastectomy 01/04 1.5 cm invasive lobular carcinoma 0/2 axillary nodes Oncotype 23, no chemo Initiate anastrozole 02/03 Start prolia 05/08 for osteoporosis prevention Genetic testing 04/05: Low penetrance CHEK2 Osteoporosis L Hip (T-2.6) 01/07, pt opted to stay on AI Right breast cancer 2000 Invasive lobular carcinoma Mastectomy 2 positive lymph nodes Adjuvant AC followed by T Gonzalez x5 years did not tolerate letrozole/Aromasin Osteopenia 2019 T score -2.1 Fosamax in the past Osteoporosis 2022 T score -2.6 Prolia started 05/08 every 6mos HPI The patient is generally doing quite well. She has been healthy and has no new health concerns. Shedenies any bothersome side effects from the Arimidex. She is taking it daily with no missed doses. No hot flashes, muscle aches or vaginal dryness. Very occasional headaches, unchanged. She does report some soft stools and occasional diarrhea. She has continued her follow-up with the surgical group regarding her IPMN with high-grade dysplasia. No evidence of recurrence there Review of Systems Constitutional: Negative for fatigue and fever. HENT: Negative for mouth sores. Respiratory: Negative for cough and shortness of breath. Cardiovascular: Negative for chest pain and leg swelling. Gastrointestinal: Positive for abdominal pain and diarrhea. Negative for blood in stool, constipation, nausea and vomiting. Musculoskeletal: Negative for arthralgias, back pain and gait problem. Skin: Negative for rash. Neurological: Negative for dizziness, weakness and numbness. Hematological: Negative for adenopathy. Objective BP 149/84 (Patient Position: Sitting) Pulse 88 Temp 36.4 ??C (97.5 ??F) (Temporal) Resp 16 Ht 154.9 cm (5' 0.98) Wt 49.1 kg (108 lb 3.2 oz) SpO2 97% BMI 20.45 kg/m?? Labs reviewed from 11/02/23 Ca 9.2 Cr 0.8 Physical Exam Constitutional: General: She is not [...] 03/2020. Her last imaging for this was 01/08- She is onCreon with meals. She has annual surveillance with [facility] General Surgery for this. Last visit 12/2023. Last DEXA 01/07 scan showed decreased T score of -2.6 in the left hip, down from -2.1. After discussion at that time she opted to remain on Arimidex and continue on Prolia as she is tolerating it welland it decreases risk of breast cancer recurrance. She continues to tolerate it well. Plan: Continue on Arimidex daily for 5 years (01/2025) started 01/2020 Continue with Prolia every 6mos. Given today Consider repeat DEXA in 12/2024 I will plan to see her in 01/09 with her DEXA scan. She will complete her hormonal therapy 02/08. Mammograms not indicated due to bilateral mastectomy. documented in this encounter Plan of Treatment Upcoming Encounters Date Type Department Care Team (Late st Contact Info) Description 01/01/2025 2:00 PM EDT Office Visit Hematology/Oncology at [address] [phone] Jeffery Sanz MD [facility] DR HEMATOLOGY [place] [address] Mary Nails APRN [address] [place] [address] [place] [address] 01/01/2025 2:30 PM EDT Infusion Hematology Oncology at [address] [phone] 01/14/2025 11:00 AM EDT Laboratory Appointment Lab 3L [place] [address] 01/14/2025 1:[address] [place] [phone] Regino Carolina MD [facility] GENERAL SURGERY [place], [place] [phone] 01/14/2025 2:00 PM EDT Office [place] [phone] Regino Carolina MD [facility] GENERAL SURGERY [place], [place] [phone] Scheduled Orders Name Type Priority Associated Diagnoses Orde r Schedule DXA Bone densitometry Complete Imaging Routine Malignant neoplasm of upper-outer quadrant of left breast in female, estrogen receptor positive Osteoporosis, unspecified osteoporosis type, unspecified pathological fracture presence 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 Expected: 12/30/2024, Expires: 05/01/2026 documented as of this encounter Procedures Procedure Name Priority Date/Time Associated Diagnosis Comments EXTERNAL CHEMISTRY LAB RESULTS Routine 05/01/2024 documented in this encounter Results * (ABNORMAL) External Chemistry Lab Results (05/01/2024) Glucose Lvl - External 123(H) Blood Urea Nitrogen - External 20(H) Creatinine - External 0.8 Sodium - External 137 Potassium - External 4.3 Calcium - External 9.3 Protein, Total - External 7.1 Albumin - External 3.8 AST (SGOT) - External 39(H) ALT (SGPT) - External 61(H) Alk Phos - External 99 Total Bilirubin - External 0.50 05/01/2024 Historical Provider EXTERNAL LAB BRIAN PACE documented in this encounter Visit Diagnoses Diagnosis Malignant neoplasm of upper-outer quadrant of left breast in female, estrogen receptor positive Osteoporosis, unspecified osteoporosis type, unspecified pathological fracture presence 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
--- OUTSIDE RECORDS SUMMARY | 2024-05-10 14:49 | XMS_ITS | Encounter Summary ---
Author Organization [facility] Address [facility] [place] [address] Care Team Providers Care Casting Machine Set Up Operator Name Role Phone Zeny James IRISH MOSS BLEACHER Primary Care Provider [phone] Reason for Visit * Reason Comments Other prolia * Treatment/Therapy Plan Authorization (Routine) - Authorized Specialty Diagnoses / Procedures Referred By Contparish t Referred To Contact Hematology and Oncology Diagnoses Malignant neoplasm of left breast in female, estrogen receptor positive, unspecified site of breast Osteopenia, unspecified location MCC current use of aromatase inhibitor Procedures TC DENOSUMAB, 1MG, INJECTION [id number] PROLIA Jeffery Sanz MD [facility] DR [place] [address] Jeffery Sanz MD [facility] DR [place] [address] Referral ID Status Reason Start Date Expiration Date V isits Requested Visits Authorized [id number] Authorized 04/17/2022 07/06/2024 99 99 Encounter Details Date Type Department Care Team (Late st Contact Info) Description 11/02/2023 1:30 PM EDT Infusion Hematology Oncology at [address] [phone] Malignant neoplasm of left breast in female, estrogen receptor positive, unspecified site of breast; Osteopenia, unspecified location; MCC current use of aromatase inhibitor Social History [...] place to sleep or slept in a usp (including now)? No 04/29/2021 Sex and Gender Information Value Date Recorded Sex Assigned at Not on file Gender Identity Not on file Sexual Orientation Not on file documented as of this encounter Progress Notes * Coni Gorman RN - 11/02/2023 1:30 PM EDT INFUSION THERAPY ADMINISTRATION NOTES TIME TREATMENT STARTED: 1330 TIME TREATMENT ENDED: 1400 DIAGNOSIS: breast cancer PROTOCOL:na CYCLE #: very [...] 2:00 PM EDT Office Visit Hematology/Oncology at [address] [phone] Jeffery Sanz MD [facility] DR HEMATOLOGY [place] [address] Mary Nails APRN [address] [place] [address] DR MEDICAL ONCOLOGY [place], [place] [address] 01/01/2025 2:30 PM EDT Infusion Hematology Oncology at [address] [phone] 01/14/2025 11:00 AM EDT Laboratory Appointment Lab [address] [place] [phone] 01/14/2025 1:[address] [place] [phone] Regino Carolina MD [facility] [place] [address] 01/14/2025 2:00 PM EDT Office [place] [phone] Regino Carolina MD [facility] [place] [address] documented as of this encounter Visit Diagnoses Diagnosis Malignant neoplasm of left breast in female, estrogen receptor positive, unspecified site of breast Osteopenia, unspecified location [facility] current use of aromatase inhibitor Use of aromatase inhibitors documented in this encounter Administered Medications Inactive Administered Medications - up to 3 most recent administrations Medication Order MAR Action Action Date Dose Rate Site denosumab (Prolia) (60 mg/mL) subcutaneous injection 60 mg 60 mg, Subcutaneous, ONCE, 1 dose, On 11/01/24 at 1400, Bring to room temperature 15-30 mins before administration. Monitor patients with severe impairment (CRCL less than 30 mL/minute or on dialysis) due to increased risk of hypocalcemia., Restricted to outpatient use. Requires P&T approval for inpatient use. Use in outpatient setting Given 11/02/2023 1:59 PM EDT 60 mg Left Arm documented in this encounter Care Teams Casting Machine Set Up Operator Relationship Specialty Start Date End Date Zeny James APRN [address] [place] [address] [address] [place] [address] PCP - General Family Medicine 09/23/19 documented as of this encounter
--- OUTSIDE RECORDS SUMMARY | 2024-05-10 14:49 | XMS_ITS | Clinical Summary ---
Author Organization [facility] Address [facility] [place] [address] Care Team Providers Care Community Health Consultant Name Role Phone Zeny James JESUS ALBERTO Primary Care Provider Allergies Active Allergy Reactions [...] 1 puff into the lungs nightly. 08/20/2019 Active aspirin EC 81 mg Tablet, [...] Active Blood-Glucose Meter Misc 1 Application by [employer].(Non-Drug; Combo Route) route 3 times daily (before [...] See Admin Instructions. Every other day Active wedjgg-pqcpcwqp-g mylase DR (Creon) 24,000-76,000 -120,[address] capsule [...] days by mouth. 10 capsule 09/07/2023 Active anastrozole (Arimidex) 1 mg tabletIndications :Malignant neoplasm of upper-outer quadrant of left breast in female, estrogen receptor positive Take 1 tablet by mouth daily. 90 tablet 3 11/13/2023 Active Active Problems Problem Noted Date Diagnosed Date Osteopenia 04/29/2021 [facility] current use of aromatase inhibitor Gastroparesis 03/31/2020 Pre-diabetes 03/30/2020 Malignant neoplasm of left b reast in female, estrogen receptor positive 12/10/2019 Overview (12/10/2019): Dx: 12/05/19 [facility] IPMN (intraductal papillary mucinous neoplasm) 0 11/25/2019 [...] specimens had focally suggestive angiolymphatic invasion. ER-pos; [place]-neg; HER2=2+. 02/06/01: R MRM/ax dissection. On path, [...] Encounters Date Type Department Care Team Description 05/01/2024 2:30 PM EST Infusion Hematology Oncology at [address] [phone] Malignant neoplasm of left breast in female, estrogen receptor positive, unspecified site of breast; Osteopenia, unspecified location; FPC current use of aromatase inhibitor 05/01/2024 2:00 PM EST Office Visit Hematology/Oncology at [address] [phone] Jeffery Sanz MD [place], Alexandra H, APRN Malignant neoplasm of upper-outer quadrant of left breast in female, estrogen receptor positive; Osteoporosis, unspecified osteoporosis type, unspecified pathological fracture presence; 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 05/01/2024 Travel 04/18/2024 11:15 AM EST Office Visit Dermatology at [facility] [address] [place] [phone] Estela Velasquez MD Skin cancer screening; History of basal cell carcinoma (BCC); Lentigines; Reyes angioma; Multiple benign nevi; Seborrheic keratoses; Seborrheic keratosis, inflamed 04/18/2024 Travel from Last 3 Months Family History [...] Mass Index 20.45 05/01/2024 1:50 PM EST Plan of Treatment Upcoming Encounters Date Type Department Care Team (Late st Contact Info) Description 01/01/2025 2:00 PM EDT Office Visit Hematology/Oncology at [address] [phone] Jeffery Sanz MD [facility] DR HEMATOLOGY [place] [address] Mary Nails APRN [address] [place] [address] [place] [address] 01/01/2025 2:30 PM EDT Infusion Hematology Oncology at [address] [phone] 01/14/2025 11:00 AM EDT Laboratory Appointment Lab [place] [address] 01/14/2025 1:[address] [place] [phone] Regino Carolina MD [facility] [place] [address] 01/14/2025 2:00 PM EDT Office [place] [phone] Regino Carolina MD [facility] [place] [address] Health Maintenance Due Date Last Done Comments Hepatitis C Screening 1963 Tetanus/Diphtheria/Pertussis Vaccines (1 - Tdap) 1965 Pneumoccocal Vaccine: 50+ (1 of 1 - PCV) 1996 Zoster vaccine (1 of 2) 1996 Advance Directive 2001 RSV Vaccine (1 - 1-dose 75+ series) 2021 Covid-19 Vaccine ( - 2023-2 5 season) 2023 Influenza (Flu) vaccine (1 o f 1 - Influenza standard series) 12/17/2023 Bone Density Scan 01/27/2035 01/28/2020, , 03/26/2012 Colonoscopy Discontinued 01/07/2014, 01/07/2014 Colorectal Cancer Screening Discontinued Sigmoidoscopy (10 year) with FIT yearly Discontinued 01/07/2014, 01/07/2014 Breast Cancer screening Discontinued 11/25/19 20, 11/15/2018, 10/12/2017, Additional history exists CT Colonography Discontinued FIT DNA Discontinued FIT Discontinued Sigmoidoscopy Discontinued Medical Devices Implanted Type Area Mechanical Fitter Device Identifier Shelf Expiration Date Model / Serial / Lot Breast Clip-12/05/2019 Implanted:Qty: 1 on 12/05/2019 by China Ramirez MD Breast Clip Breast HOLOGIC - MARY Twirl SMARK-E UT-13 / [id number] / [id number] Staple 60mm Endo Thick White Blue Green Syn Seamguard ([id number]) - [id number] Implanted:Qty: 1 on 03/23/2020 by Regino Carolina MD at [facility] IMPLANTS Abdomen [employer] - [employer] AN [id number] / / [id number] Procedures Procedure Name Priority Date/Time Associated Diagnosis Comments LAB SCAN 05/01/2024 12:00 AM EST EXTERNAL CHEMISTRY LAB RESULTS Routine 05/01/2024 DXA CENTRAL SPINE, HIP, AND/OR WHOLE BODY (GENERIC) Routine 01/28/2020 9:43 AM EDT Malignant neoplasm of upper-outer quadrant of left breast in female, estrogen receptor positive 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 Scanning Provider MEDIA MGR SCAN EXT O RDR/RSLT * DXA Central Spine, Hip, and/or Whole [...] BMD measurements and plots are available in [facility] under the imaging tab. Paper copies will be sent to providers without E- access. If you have received this report without the data sheet and do not have access to [employer], please contact Radiology Acid Mixer at [phone] Monday thru Monday 8am-4pm. Thank you for letting us participate in the care of this patient. For questions regarding this report, please contact the number below. ? Electronically signed by: Maria Esther Stallworth MD, [facility] [place] ([phone]), at 01/28/2020 1:15 PM Narrative 01/28/2020 1:15 [...] to represent a statistically significant change. At [facility], least significant change for bone mineral density measurements at the spine region of interest: 0.031 g/cm2 Total hip: Compared to the previous, 0.018 ??g/cm2 (2.4 %) decrease. This change is so small that it is unlikely to represent a statistically significant change. Compared to the baseline, 0.045 g/cm2 (5.7 %) decrease. At [facility], least significant change for bone mineral [...] to represent a statistically significant change. At [facility], least significant change for bonemineral density measurements at the spine region of interest: 0.031 g/cm2 Total hip: Compared to the previous, 0.018 g/cm2 (2.4 %) decrease. This change is sosmall that it is unlikely to represent a statistically significant change. Compared to the baseline, 0.045 g/cm2 (5.7 %) decrease. At [facility], least significant change for bonemineral density [...] BMD measurements and plots are available in [facility] the imaging tab. Paper copies will be sent to providers without E- access.If you have received this report without the data sheet and do not haveaccess to E-, please contact Radiology Acid Mixer at [phone] Monday thrriday 8am-4pm. Thank you for letting us participate in the care of this patient. Forquestions regarding this report, please contact the number below. Electronically signed by: Maria Esther Stallworth MD, [facility]([phone]), at 01/28/2020 1:15 PM Roosevelt Dueñas MD [...] cm from the nipple measuring 1 cm. Zenyleann James APRN IMG MAMMO ORDERABLE S * COLONOSCOPY (01/07/2014 12:22 PM EDT) COLONOSCOPY [facility] Endoscopy Patient Name: Linda Serrano ? Procedure Date: 01/07/2014 12:22 PM ? Date of : 1945 ? Age: 68 ? Order #: [id number] ? Procedure: ? Colonoscopy Indications: ? Screening for colorectal malignant ? neoplasm Providers: ? Izzy Johnson MD, Yesi Woodruff, ? RN, Willem Lane, Business Education Teacher Referring : ?Villa Krause MD Medicines: ? [...] Status decision made by: Patient Care Teams Community Health Consultant Relationship Specialty Start Date End Date Zeny James APRN [address] [place] [address] PCP - General Family Medicine 09/23/19
--- OUTSIDE RECORDS SUMMARY | 2024-05-10 14:49 | XMS_ITS | Encounter Summary ---
Author Organization [facility] Address [facility] [place] [address] Care Team Providers Care Neighborhood Coordinator Name Role Phone Zeny James SPOOLING MACHINE OPERATOR Primary Care Provider Encounter Details Date Type Department Care Team (Latest Contact Info) Description 11/02/2023 Travel Social History Tobacco Use Types Packs/Day [...] 2:00 PM EDT Office Visit Hematology/Oncology at [address] [phone] Jeffery Sanz MD [facility] DR HEMATOLOGY [place] [address] Mary Nails APRN [address] [place] [address] DR MEDICAL ONCOLOGY [place], [place] [id number] 01/01/2025 2:30 PM EDT Infusion Hematology Oncology at [address] [phone] 01/14/2025 11:00 AM EDT Laboratory Appointment Lab [address] [place] [phone] 01/14/2025 1:[address] [place] [phone] Regino Carolina MD [facility] [place] [address] 01/14/2025 2:00 PM EDT Office [place] [phone] Regino Carolina MD [facility] [place] [address] documented as of this encounter Visit Diagnoses Not on filedocumented in this encounter Care Teams Neighborhood Coordinator Relationship Specialty Start Date End Date Zeny James APRN [address] [facility] [address] [place] [address] PCP - General Family Medicine 09/23/19 documented as of this encounter
--- OUTSIDE RECORDS SUMMARY | 2024-05-10 14:49 | XMS_ITS | Encounter Summary ---
Author Organization [facility] Address [facility] [place] [address] Care Team Providers Care Product Safety Engineer Name Role Phone Zeny James APRN Primary Care Provider Encounter Details Date Type Department Care Team (Late st Contact Info) Description 09/08/2023 Telephone Dermatology at [facility] [address] [place] [phone] Jayro Mack MD [facility] [place] [address] Social History Tobacco Use Types Packs/Day Years [...] her nose. There is blood. Please call [phone]. documented in this encounter Plan of Treatment Upcoming Encounters Date Type Department Care Team (Late st Contact Info) Description 01/01/2025 2:00 PM EDT Office Visit Hematology/Oncology at [address] [phone] Jeffery Sanz MD [facility] [place] [address] Mary Nails APRN [address] [place] [address] [place] [address] 01/01/2025 2:30 PM EDT Infusion Hematology Oncology at [address] [phone] 01/14/2025 11:00 AM EDT Laboratory Appointment Lab [place], [place] [address] 01/14/2025 1:[address] [place] [address] Regino Carolina MD [facility] [place] [address] 01/14/2025 2:00 PM EDT Office [place] [phone] Regino Carolina MD [facility] [place] [address] documented as of this encounter Visit Diagnoses Not on filedocumented in this encounter Care Teams Product Safety Engineer Relationship Specialty Start Date End Date Zeny James APRN [address] [place] [address] [address] [place] [address] PCP - General Family Medicine 09/23/19 documented as of this encounter
--- OUTSIDE RECORDS SUMMARY | 2024-05-10 14:49 | XMS_ITS | Encounter Summary ---
Author Organization [facility] Address [facility] [place] [address] Care Team Providers Care Bridge Game Director Name Role Phone Zeny James APRN Primary Care Provider [phone] Encounter Details Date Type Department Care Team (Latest Contact Info) Description 09/07/2023 10:45 AM EDT Clinical Support Dermatology at [facility] [address] [place] [address] Jayro Mack MD [facility] [address] [place] [address] Basal cell carcinoma of right side of [...] 2:00 PM EDT Office Visit Hematology/Oncology at [address] [phone] Jeffery Sanz MD [facility] DR HEMATOLOG[place] [address] Mary Nails APRN [address] [place] [address] [place] [address] 01/01/2025 2:30 PM EDT Infusion Hematology Oncology at [address] [phone] 01/14/2025 11:00 AM EDT Laboratory Appointment Lab 3L [place] [phone] 01/14/2025 1:[address] [place] [phone] Regino Carolina MD [facility] [place] [address] 01/14/2025 2:00 PM EDT Office [place] [address] Regino Carolina MD [facility] [place] [address] documented as of this encounter Visit Diagnoses Diagnosis Basal cell carcinoma of right side of nose Basal cell carcinoma of skin of other and unspecified parts of face documented in this encounter Care Teams Bridge Game Director Relationship Specialty Start Date End Date Zeny James APRN [address] [place] [address] PCP - General Family Medicine 09/23/19 documented as of this encounter
--- OUTSIDE RECORDS SUMMARY | 2024-05-10 14:49 | XMS_ITS ---
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 IPMN (intraductal papillary mucinous neoplasm) 0 11/25/2019 [...] treatments are documented for this patient in [facility]. Treatments may have been administered in another system. Lifetime Dose Tracking * Chemical Lifetime Dose Automatic Entry Manual Entr y DLP (Dose Length Product) 777 mGy-cm 777 mGy-cm 0 mGy-cm CTDI (CT Dose Index) Min 14.02 mGy 14.02 mGy 0 m Gy CTDI (CT Dose Index) Max 14.02 mGy 14.02 mGy 0 m Gy
--- OUTSIDE RECORDS SUMMARY | 2024-05-10 14:49 | XMS_ITS | Encounter Summary ---
Author Organization Counts Include [facility] Address [facility] [place] [address] Care Team Providers Care Lap Runner Name Role Phone Zeny James MANAGER CUSTOMER Primary Care Provider Encounter Details Date Type Department Care Team (Latest Contact Info) Description 01/09/2024 Travel Social History Tobacco Use Types Packs/Day [...] 2:00 PM EDT Office Visit Hematology/Oncology at [address] [phone] Jeffery Sanz MD [facility] DR [place] [address] Mary Nails APRN [address] [place] [address] DR MEDICAL ONCOLOGY [place], [place] [id number] 01/01/2025 2:30 PM EDT Infusion Hematology Oncology at [address] [phone] 01/14/2025 11:00 AM EDT Laboratory Appointment Lab [address] [place] [phone] 01/14/2025 1:[address] [place] [phone] Regino Carolina MD [facility] [place] [address] 01/14/2025 2:00 PM EDT Office [place] [phone] Regino Carolina MD [facility] [place] [place] [address] documented as of this encounter Visit Diagnoses Not on filedocumented in this encounter Care Teams Lap Runner Relationship Specialty Start Date End Date Zeny James APRN [address] [facility] [address] [facility] 1 [place] [address] PCP - General Family Medicine 09/23/19 documented as of this encounter
--- OUTSIDE RECORDS SUMMARY | 2024-05-10 14:49 | XMS_ITS | Encounter Summary ---
Author Organization [facility] Address [facility] [place] [address] Care Team Providers Care Finisher Brush Name Role Phone Zeny James APRN Primary Care Provider Reason for Visit * Reason Comments Suture / Staple Removal Encounter Details Date Type Department Care Team (Late st Contact Info) Description 09/21/2023 1:30 PM EDT Office Visit Dermatology at [address] [phone] Jayro Mack MD [facility] DR [place] [address] Visit for suture removal Social History Tobacco [...] 2. Follow up with referring provider or pst specialist for skin exams. 3. Follow up with Dr. Mack: as needed Note initiated by UCHE Brownlee LPN has performed the documentation for this encounter in the presence of and acting as a scribe for Dr. Mack I performed the above scribed service and agree with the accuracy of the documentation in this encounter. Reviewed and signed by: Jayro Mack Dermatology [facility] documented in this encounter Plan of Treatment Upcoming Encounters Date Type Department Care Team (Late st Contact Info) Description 01/01/2025 2:00 PM EDT Office Visit Hematology/Oncology at [address] [phone] Jeffery Sanz MD [facility] DR [place] [address] Mary Nails APRN [address] [place] [address] DR MEDICAL ONCOLOGY [place], [place] [address] 01/01/2025 2:30 PM EDT Infusion Hematology Oncology at [address] [phone] 01/14/2025 11:00 AM EDT Laboratory Appointment Lab [place] [address] 01/14/2025 1:[address] [place] [phone] Regino Carolina MD [facility] [place] [address] 01/14/2025 2:00 PM EDT Office [place] [address] Regino Carolina MD [facility] [place] [address] documented as of this encounter Visit Diagnoses Diagnosis Visit for suture removal Encounter for removal of sutures documented in this encounter Care Teams Finisher Brush Relationship Specialty Start Date End Date Zeny JamesJESUS ALBERTO [address] [place] [address] PCP - General Family Medicine 09/23/19 documented as of this encounter
--- OUTSIDE RECORDS SUMMARY | 2024-05-10 14:49 | XMS_ITS | Encounter Summary ---
Author Organization [facility] Address [facility] [place] [address] Care Team Providers Care Maintenance Journeyman Name Role Phone Zeny James APRN Primary Care Provider [phone] Reason for Referral * Consultation (Routine) - Closed Specialty Diagnoses / Procedures Referred By Nir potts Referred To Contact Dermatology Diagnoses Basal cell carcinoma of nose Estela Velasquez MD [facility] [place] [address] Jayro Mack MD [facility] [place] [address] Referral ID Status Reason Start Date Expiration Date V isits Requested Visits Authorized [id number] Closed Consult, Test & Treat 07/12/2023 07/11/2024 1 1 Encounter Details Date Type Department Care Team (Latest Contact Info) Description 07/12/2023 Transcribe Orders Dermatology at [facility] [address] [place] [address] Estela Velasquez MD [facility] [place] [address] Basal cell carcinoma of nose [...] 2:00 PM EDT Office Visit Hematology/Oncology at [address] [phone] Jeffery Sanz MD [facility] DR HEMATOLOGY AND ONCOLOGY [place], [place] [phone] Mary Nails APRN [address] [place] [address] DR MEDICAL ONCOLOGY [place], [place] [id number] 01/01/2025 2:30 PM EDT Infusion Hematology Oncology at [address] [phone] 01/14/2025 11:00 AM EDT Laboratory Appointment Lab 3L [place] [phone] 01/14/2025 1:[address] [place] [phone] Regino Carolina MD [facility] [place] [address] 01/14/2025 2:00 PM EDT Office [place] [phone] Regino Carolina MD [facility] [place] [address] Scheduled Referrals Name Type Priority Associated Diagnoses Order Schedule Referral to Dermatology Outpatient Referral Routine Basal cell carcinoma of nose Ordered: 07/12/2023 documented as of this encounter Visit Diagnoses Diagnosis Basal cell carcinoma of nose Basal cell carcinoma of skin of other and unspecified parts of face documented in this encounter Care Teams Maintenance Journeyman Relationship Specialty Start Date End Date Zeny James APRN [address] [place] [address] PCP - General Family Medicine 09/23/19 documented as of this encounter
--- OUTSIDE RECORDS SUMMARY | 2024-05-10 14:49 | XMS_ITS | Encounter Summary ---
Author Organization [facility] Address [facility] [place] [address] Care Team Providers Care Liner Machine Operator Helper Name Role Phone Zeny James RESEARCH AND DEVELOPMENT SPECIALIST Primary Care Provider [phone] Encounter Details Date Type Department Care Team [...] 2:00 PM EDT Office Visit Hematology/Oncology at [address] [phone] Jeffery Sanz MD [facility] DR [place] [address] Mary Nails APRN [address] [place] [address] DR MEDICAL ONCOLOGY [place], [place] [id number] 01/01/2025 2:30 PM EDT Infusion Hematology Oncology at [address] [phone] 01/14/2025 11:00 AM EDT Laboratory Appointment Lab [address] [place] [phone] 01/14/2025 1:[address] [place] [place] [phone] Regino Carolina MD [facility] [place] [address] 01/14/2025 2:00 PM EDT Office [place] [phone] Regino Carolina MD [facility] [place] [address] documented as of this encounter Visit Diagnoses Not on filedocumented in this encounter Care Teams Liner Machine Operator Helper Relationship Specialty Start Date End Date Zeny James APRN [address] [facility] [address] [facility] 1 [place] [address] PCP - General Family Medicine 09/23/19 documented as of this encounter
--- OUTSIDE RECORDS SUMMARY | 2024-05-10 14:49 | XMS_ITS | Encounter Summary ---
Author Organization [facility] Address [facility] [place] [address] Care Team Providers Care Care Rep Name Role Phone Zeny James BUSINESS LOAN PROCESSOR Primary Care Provider [phone] Encounter Details Date Type Department Care Team (Latest Contact Info) Description 05/01/2024 Travel Social History Tobacco Use Types Packs/Day [...] 2:00 PM EDT Office Visit Hematology/Oncology at [address] [phone] Jeffery Sanz MD [facility] DR [place] [address] Mary Nails APRN [address] [place] [address] DR MEDICAL ONCOLOGY [place], [place] [id number] 01/01/2025 2:30 PM EDT Infusion Hematology Oncology at [address] [phone] 01/14/2025 11:00 AM EDT Laboratory Appointment Lab [address] [place] [phone] 01/14/2025 1:[address] [place] [phone] Regino Carolina MD [facility] [place] [address] 01/14/2025 2:00 PM EDT Office [place] [phone] Regino Carolina MD [facility] [place] [address] documented as of this encounter Visit Diagnoses Not on filedocumented in this encounter Care Teams Care Rep Relationship Specialty Start Date End Date Zeny James APRN [address] [facility] [facility] 1 [place] [address] PCP - General Family Medicine 09/23/19 documented as of this encounter
--- OUTSIDE RECORDS SUMMARY | 2024-05-10 14:49 | XMS_ITS | Encounter Summary ---
Author Organization [facility] [place] [address] Care Team Providers Care Laborer Name Role Phone VasuZeny santos JESUS ALBERTO Primary Care Provider [phone] Reason for Visit * Reason Comments Medication Refill Encounter Details Date Type Department Care Team (Late st Contact Info) Description 11/12/2023 Refill Hematology/Oncology at [address] [phone] Rhona Hogan, SUPERVISOR LABORATORY Malignant neoplasm of upper-outer quadrant of left [...] 2:00 PM EDT Office Visit Hematology/Oncology at [address] [phone] Jeffery Sanz MD [facility] DR HEMATOLOGY [place] [address] Mary Nails APRN [address] [place] [address] DR MEDICAL ONCOLOGY [place], [place] [id number] 01/01/2025 2:30 PM EDT Infusion Hematology Oncology at [address] [phone] 01/14/2025 11:00 AM EDT Laboratory Appointment Lab 3[place] [phone] 01/14/2025 1:[address] [place] [phone] Regino Carolina MD [facility] [place] [address] 01/14/2025 2:00 PM EDT Office [place] [address] Regino Carolina MD [facility] [place] [address] documented as of this encounter Visit Diagnoses Diagnosis Malignant neoplasm of upper-outer quadrant of left breast in female, estrogen receptor positive documented in this encounter Care Teams Laborer Relationship Specialty Start Date End Date Zeny James APRN [address] [place] [address] [address] [facility] 1 [place] [address] PCP - General Family Medicine 09/23/19 documented as of this encounter
--- OUTSIDE RECORDS SUMMARY | 2024-05-10 14:49 | XMS_ITS | Encounter Summary ---
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 female. Patient Active Problem List Diagnosis Osteopenia MCC current use of aromatase inhibitor Gastroparesis Pre-diabetes Malignant neoplasm of left breast in female, estrogen receptor positive Dx: 12/05/19 [facility] IPMN (intraductal papillary mucinous neoplasm) [place] (actinic [...] specimens had focally suggestive angiolymphatic invasion. ER-pos; CO-neg; HER2=2+. 02/06/01: R MRM/ax dissection. On path, [...] grade lobular carcinoma in situ ER positive, CO negative, HER2 negative PET/CT no mets 12/04, done for IPMN Simple mastectomy 01/04 1.5 cm invasive lobular carcinoma 0/2 axillary nodes Oncotype 23, no chemo Initiate anastrozole 02/03 Start prolia 1/22 for osteoporosis prevention Genetic testing 04/05: Low penetrance CHEK2 Osteoporosis L Hip (T-2.6) 01/07, pt opted to stay on AI Right breast cancer 2000 Invasive lobular carcinoma Mastectomy 05/26 positive lymph nodes Adjuvant AC followed by T Gonzalez x5 years did not tolerate letrozole/Aromasin Osteopenia 2019 T score -2.1 Fosamax in the past Osteoporosis 2022 T score -2.6 Prolia started 05/08 every 6mos TERESITA Alcantara is generally doing quite well. She has [...] blood or pain with loose stools. She was quite sick two days ago. Her stomach cramped in the early afternoon after going out for lunch. She did vomit once and was very gassy. No diarrhea, no fever. [place] better the next day and was able to eat a normal diet. Her stomach still feels off. No fever or chills. Review of Systems Constitutional: Negative for fatigue [...] numbness. Hematological: Negative for adenopathy. Objective BP 139/65 (Patient Position: Sitting) Pulse 70 Temp 36.7 ??C (98 ??F) (Temporal) Resp 16 Ht154.9 cm (5' 0.98) Wt 48.1 kg (106 lb) SpO2 100% BMI 20.04 kg/m?? Labs reviewed from 11/02/23 Ca 9.2 [...] with meals. She has annual surveillance with [facility] General Surgery for this. Last visit 12/2022. Last DEXA 01/07 scan showed decreased T [...] Continue with Prolia every 6mos. Given today 11/02/23. Consider repeat DEXA in about 2yrs, 12/2024 Continue with visits every 6mos Mammograms not indicated due to bilateral mastectomy. documented in this encounter Plan of Treatment Upcoming Encounters Date Type Department Care Team (Late st Contact Info) Description 01/01/2025 2:00 PM EDT Office Visit Hematology/Oncology at [address] [phone] [facility] DR HEMATOLOGY [place] [address] Mary Nails APRN [address] [place] [address] [place] [address] 01/01/2025 2:30 PM EDT Infusion Hematology Oncology at [address] [place] [phone] 01/14/2025 11:00 AM EDT Laboratory Appointment Lab 3[place] [address] 01/14/2025 1:[address] [place] [phone] [facility] [address] [place] [address] 01/14/2025 2:00 PM EDT Office Visit [place] [phone] [facility] DR [place] SURGERY [place], [place] [phone] documented as of this encounter Procedures Procedure Name Priority Date/Time Associated Diagnosis Comments CBC (WITH DIFF) Routine 11/02/2023 COMPREHENSIVE METABOLIC PANEL Routine 11/02/2023 documented in this encounter Results * Comprehensive metabolic panel (non-fasting) (11/02/2023) Pathologist [facility] Glucose 106 Blood Urea Nitrogen 18 Creatinine 0.8 Sodium 139 Potassium 3.8 Calcium 9.2 Protein, Total 6.7 Albumin 3.8 Bilirubin, Total 0.57 Alkaline Phosphatase 103 Aspartate Aminotransferase 34 Alanine Aminotransferase 52 Ferritin 45 Blood 11/02/2023 Historical Provider CHEMISTRY ORDERAB LES * CBC (with Diff) (11/02/2023) White Blood Cell 8.57 Red Blood Cell 4.31 Hemoglobin 13.3 Hematocrit 39.3 Platelet 266 Blood 11/02/2023 Historical Provider HEMATOLOGY ORDERA BLES documented in this encounter Visit Diagnoses Diagnosis Osteoporosis, unspecified osteoporosis type, unspecified pathological fracture presence MCC current use of aromatase inhibitor Use of aromatase inhibitors Malignant neoplasm of left breast in female, estrogen receptor positive, unspecified site of breast documented in this encounter Care Teams Train Operations Manager Relationship Specialty Start Date End Date Delaney JamesJESUS ALBERTO noriega [address] [place] [address] PCP - General Family Medicine 09/23/19 documented as of this encounter
--- OUTSIDE RECORDS SUMMARY | 2024-05-10 14:50 | XMS_ITS | Encounter Summary ---
Author Organization [facility] Address [facility] [place] [address] Care Team Providers Care Tobacco Packing Machine Operator Name Role Phone Zeny James APRN Primary Care Provider Encounter Details Date Type Department Care Team (Late st Contact Info) Description 03/01/2023 10:30 AM EST Office Visit Dermatology at [facility] [address] [place] [address] Michael Cavazos MD [facility] [place] [address] History of basal cell carcinoma (BCC); Skin [...] this encounter Progress Notes * Dafne Calero, [facility] - 03/01/2023 10:30 AM EST Images from [...] thinners: ASA 81mg, Vitamin E, Pravastatin 20mg, [place]-3 Pacemaker, defibrillator, deep brain stimulator, cochlear implant: [...] was reviewed. Lesion(s) were treated with LN2 [id number] freeze-thaw cycle. The patient tolerated the procedure [...] year FSE or PRN []Note routed to attendance secretary [x]Recall placed in scheduling system []Appointment scheduled at checkout Scribe attestation: Karime Pal RN has performed the documentation for this encounter in the presence of and acting as a scribe for MICHAEL CAVAZOS MD. I performed the above scribed service and agree with the accuracy of the documentation in this encounter. Reviewed and signed by: MICHAEL CAVAZOS MD [facility] documented in this encounter Plan of Treatment Upcoming Encounters Date Type Department Care Team (Late st Contact Info) Description 01/01/2025 2:00 PM EDT Office Visit Hematology/Oncology at [address] [phone] Jeffery Sanz MD [facility] [place] [address] Mary Nails APRN [address] [place] [address] [place] [address] 01/01/2025 2:30 PM EDT Infusion Hematology Oncology at [address] [phone] 01/14/2025 11:00 AM EDT Laboratory Appointment Lab 3[place] [address] 01/14/2025 1:[address] [place] [address] Regino Carolina MD [facility] [place] [address] 01/14/2025 2:00 PM EDT Office Visit [place] [address] Regino Carolina MD [facility] [place] [place] [address] documented as of this encounter Visit Diagnoses Diagnosis History of basal cell carcinoma (BCC) Skin cancer screening Screening for malignant neoplasm of the skin Multiple benign nevi of upper extremity, lower extremity, and trunk Seborrheic keratosis Other seborrheic keratosis Lentigines Other dyschromia Reyes angioma Nevus, non-neoplastic Inflamed seborrheic keratosis documented in this encounter Care Teams Tobacco Packing Machine Operator Relationship Specialty Start Date End Date Zeny James APRN [address] [place] [address] PCP - General Family Medicine 09/23/19 documented as of this encounter
--- OUTSIDE RECORDS SUMMARY | 2024-05-10 14:50 | XMS_ITS | Encounter Summary ---
Author Organization [facility] Address [facility] [place] [address] Care Team Providers Care Hand Bindery Assembly Worker Name Role Phone Zeny James APRN Primary Care Provider Encounter Details Date Type Department Care Team (Late st Contact Info) Description 02/09/[address] [place] [phone] Essie Portillo, RN Social History Tobacco Use [...] 2:00 PM EDT Office Visit Hematology/Oncology at [address] [phone] Jeffery Sanz MD [facility] DR [place] [address] Mary Nails APRN [address] [place] [address] DR MEDICAL ONCOLOGY [place], [place] [id number] 01/01/2025 2:30 PM EDT Infusion Hematology Oncology at [address] [phone] 01/14/2025 11:00 AM EDT Laboratory Appointment Lab [place] [phone] 01/14/2025 1:[address] [place] [phone] Regino Carolina MD [facility] [place] [address] 01/14/2025 2:00 PM EDT Office Visit [place] [phone] Regino Carolina MD [facility] [place] [address] documented as of this encounter Visit Diagnoses Not on filedocumented in this encounter Care Teams Hand Bindery Assembly Worker Relationship Specialty Start Date End Date Zeny James APRN [address] [place] [address] PCP - General Family Medicine 09/23/19 documented as of this encounter
--- OUTSIDE RECORDS SUMMARY | 2024-05-10 14:50 | XMS_ITS | Encounter Summary ---
Author Organization [facility] Address [facility] [place] [address] Care Team Providers Care Orientation And Mobility Specialist Name Role Phone Zeny James APRN Primary Care Provider [phone]- [phone] Reason for Visit * Reason Comments Injections * Treatment/Therapy Plan Authorization (Routine) - Authorized Specialty Diagnoses / Procedures Referred By Nir potts Referred To Contact Hematology and Oncology Diagnoses Malignant neoplasm of left breast in female, estrogen receptor positive, unspecified site of breast Osteopenia, unspecified location skilled nursing current use of aromatase 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 Procedures TC DENOSUMAB, 1MG, INJECTION [id number] Jeffery Jama MD [facility] [place] [address] Jeffery Sanz MD [facility] [place] [address] Referral ID Status Reason Start Date Expiration Date V isits Requested Visits Authorized [id number] Authorized 04/17/2022 07/06/2024 99 99 Encounter Details Date Type Department Care Team (Late st Contact Info) Description 05/04/2023 10:30 AM EST Infusion Hematology Oncology at [address] [phone] Malignant neoplasm of left breast in female, estrogen receptor positive, unspecified site of breast; Osteopenia, unspecified location; 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 Social History [...] 2:00 PM EDT Office Visit Hematology/Oncology at [address] [phone] Jeffery Sanz MD [facility] DR [place] [address] Mary Nails APRN [address] [place] [address] DR MEDICAL ONCOLOGY [place], [place] [address] 01/01/2025 2:30 PM EDT Infusion Hematology Oncology at [address] [phone] 01/14/2025 11:00 AM EDT Laboratory Appointment Lab [place] [phone] 01/14/2025 1:[address] [place] [phone] Regino Carolina MD [facility] [place] [address] 01/14/2025 2:00 PM EDT Office Visit [place] [address] Regino Carolina MD [facility] [place] [address] documented as of this encounter Visit Diagnoses Diagnosis Malignant neoplasm of left breast in female, estrogen receptor positive, unspecified site of breast Osteopenia, unspecified location 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
--- OUTSIDE RECORDS SUMMARY | 2024-05-10 14:50 | XMS_ITS | Encounter Summary ---
Author Organization [facility] Address [facility] [place] [address] Care Team Providers Care Sales Architect Name Role Phone Zeny James APRN Primary Care Provider [phone] Encounter Details Date Type Department Care Team (Late st Contact Info) Description 12/28/2022 Orders [place] [address] Regino Carolina MD [facility] [place] [address] History of pancreatectomy (Primary Dx); Vitamin D [...] 2:00 PM EDT Office Visit Hematology/Oncology at [address] [phone] Jeffery Sanz MD [facility] [place] [address] Mary Nails APRN [address] [place] [address] DR MEDICAL ONCOLOGY [place], [place] [address] 01/01/2025 2:30 PM EDT Infusion Hematology Oncology at [address] [phone] 01/14/2025 11:00 AM EDT Laboratory Appointment Lab [address] [place] [phone] 01/14/2025 1:[address] [place] [phone] Regino Carolina MD [facility] [place] [address] 01/14/2025 2:00 PM EDT Office [place] [phone] Regino Carolina MD [facility] [place] [place] [address] documented as of this encounter Results * Vitamin D, 25-Hydroxy (01/03/2023 12:32 PM EDT) Vitamin D Total 25 OH 27 21 - 100 ng/mL [facility] Vit D Interp Insufficient [facility] Blood 01/03/2023 12:3 2 PM EDT 01/03/2023 12:39 PM EDT Narrative Resulting Agency Comment Spec In Lab Regino Carolina MD CHEMISTRY ORDERABL ES Performing Organization Address [facility]/ZIP Co de Phone Number [facility] [place] [address] * (ABNORMAL) Vitamin B1, whole blood (01/03/2023 12:32 PM EDT) Vit B1 Lvl Wb (AUGUST) 185(H) 70 - 180 nmol/L [facility] Comment: ADDITIONAL INFORMATION This test was developed and its performance characteristics determined by [facility] in a manner consistent with CLIA requirements. This test has not been cleared or approved by the U.S. Food and Drug Administration. Test Performed by: [facility] - [address] [address] Technician Inventory Specialist: Denzel Angel M.D. Ph.D.; CLIA# [id number] Blood 01/03/2023 12:3 2 PM EDT 01/03/2023 3:21 PM EDT Narrative Resulting Agency Comment Spec In Lab Regino Carolina MD LAB SEND OUT ORDER MAGAN [facility] [place] [address] * Folate, serum (01/03/2023 12:32 PM EDT) Folate 18.8 4.8 - 24.2 ng/mL [facility] Blood 01/03/2023 12:3 2 PM EDT 01/03/2023 12:39 PM EDT Narrative Resulting Agency Comment Spec In Lab Regino Carolina MD CHEMISTRY ORDERABL ES [facility] [place] [address] * (ABNORMAL) Comprehensive metabolic panel (non-fasting) (01/03/2023 12:32 PM EDT) Glucose 155 65 - 199 mg/dL [facility] Comment:Diabetes: >=200 mg/d L plus symptoms Blood Urea Nitrogen 16 8 - 18 mg/dL [facility] Creatinine 0.54(L) 0.70 - 1.20 mg/dL [facility] Sodium 140 135 - 145 mmol/L [facility] Potassium 4.3 3.5 - 5.0 mmol/L [facility] Comment: Please note: ??Patients with WBC >100,000 may have falsely elevated Potassium levels. ??For accurate Potassium quantification in these patients send serum separator tube (gold top) for subsequent determinations. ??Contact the Clinical Chemistry Laboratory if there are any questions. Chloride 102 98 - 107 mmol/L [facility] Carbon Dioxide 26 22 - 31 mmol/L [facility] Anion Gap 12 5 - 15 mmol/L [facility] Calcium 8.6 8.5 - 10.5 mg/dL [facility] Protein, Total 6.5 6.1 - 8.0 g/dL [facility] Albumin 4.4 3.2 - 5.2 g/dL [facility] Aspartate Aminotransferase 37(H) 0 - 30 unit/L [facility] Alanine Aminotransferase 53(H) 0 - 30 unit/L [facility] Alkaline Phosphatase 137(H) 35 - 105 unit/L [facility] Bilirubin, Total 0.5 0.2 - 1.3 mg/dL [facility] Est Glomerular Filtration Rate 95 >=60 mL/min/1. 73 m?? [facility] Comment: This patient's estimated GFR [...] MD CHEMISTRY ORDERABL ES Performing Organization Address [facility] Co de Phone Number [facility] [place] [address] * Vitamin B12 (01/03/2023 12:32 PM EDT) Vitamin B12 831 232 - 1,245 pg/mL [facility] Blood 01/03/2023 12:3 2 PM EDT 01/03/2023 12:39 PM EDT Narrative Resulting Agency Comment Spec In Lab Regino Carolina MD CHEMISTRY ORDERABL ES Performing Organization Address [facility] Co de Phone Number [facility] [place] [address] * Vitamin E (01/03/2023 12:32 PM EDT) Vitamin E 9.3 5.5 - 17.0 mg/L [facility] Comment: ADDITIONAL INFORMATION This test was developed and its performance characteristics determined by [facility] in a manner consistent with CLIA requirements. This test has not been cleared or approved by the U.S. Food and Drug Administration. Test Performed by: [facility] - [address] [address] Technician Inventory Specialist: Denzel Angel M.D. Ph.D.; CLIA# [id number] Blood 01/03/2023 12:3 2 PM EDT 01/03/2023 3:08 PM EDT Narrative Resulting Agency Comment Spec In Lab Regino Carolina MD LAB SEND OUT ORDER MAGAN [facility] [place] [address] * Vitamin A (01/03/2023 12:32 PM EDT) [facility] Vitamin A (AUGUST) 45.2 32.5 - 78.0 mcg/dL [facility] Comment: ADDITIONAL INFORMATION This test was developed and its performance characteristics determined by [facility] in a manner consistent with CLIA requirements. This test has not been cleared or approved by the U.S. Food and Drug Administration. Test Performed by: [facility] - [address] [address] Technician Inventory Specialist: Denzel Angel M.D. Ph.D.; CLIA# [id number] Blood 01/03/2023 12:3 2 PM EDT 01/03/2023 3:06 PM EDT Narrative Resulting Agency Comment Spec In Lab Regino Carolina MD LAB SEND OUT ORDER MAGAN Performing Organization Address [facility]/ZIP Co de Phone Number [facility] [place] [address] * Ferritin (01/03/2023 12:32 PM EDT) [facility] Ferritin 33 30 - 400 ng/mL [facility] Comment: Pediatric reference ranges not verified at [facility] interpret with caution. Reference ranges for females greater than 50 years of age approach values for men, i.e., 30-400 ng/mL. Blood 01/03/2023 12:3 2 PM EDT 01/03/2023 12:39 PM EDT Narrative Resulting Agency Comment Spec In Lab Regino Carolina MD CHEMISTRY ORDERABL ES [facility] [place] [address] * Iron and TIBC (01/03/2023 12:32 PM EDT) Iron 148 30 - 150 mcg/dL [facility] TIBC 342 250 - 450 mcg/dL [facility] Iron Saturation 43 20 - 50 % [facility] Blood 01/03/2023 12:3 2 PM EDT 01/03/2023 12:39 PM EDT Narrative Resulting Agency Comment Spec In Lab Regino Carolina MD CHEMISTRY ORDERABL ES Performing Organization Address [facility] Co de Phone Number [facility] [place] [address] documented in this encounter Visit Diagnoses Diagnosis History of pancreatectomy- Primary Vitamin D deficiency Unspecified vitamin D deficiency Iron deficiency anemia due to chronic blood loss Iron deficiency anemia secondary to blood loss (chronic) documented in this encounter Care Teams Sales Architect Relationship Specialty Start Date End Date Zeny James APRN [address] [place] [address] PCP - General Family Medicine 09/23/19 documented as of this encounter
--- OUTSIDE RECORDS SUMMARY | 2024-05-10 14:50 | XMS_ITS | Encounter Summary ---
Author Organization [facility] Address [facility] [place] [address] Care Team Providers Care Wood Casket Assembler Name Role Phone VasuZney santos JESUS ALBERTO Primary Care Provider Encounter Details Date Type Department Care Team (Late st Contact Info) Description 05/04/2023 10:00 AM EST Office Visit Hematology/Oncology at [address] [phone] Jeffery Sanz MD [facility] [place] [address] Rhona Hogan, MICA PASTER Malignant neoplasm of upper-outer quadrant of left [...] female. 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 ER-pos; SC-neg; HER2=2+. 02/06/01: R MRM/ax dissection. On path, [...] grade lobular carcinoma in situ ER positive, SC negative, HER2 negative PET/CT no mets 12/04, [...] with meals. She has annual surveillance with [facility] General Surgery for this. Last visit 12/2022. [...] 2:00 PM EDT Office Visit Hematology/Oncology at [address] [phone] Jeffery Sanz MD [facility] DR HEMATOLOGY [place] [address] Mary Nails APRN [address] [place] [address] [place] [address] 01/01/2025 2:30 PM EDT Infusion Hematology Oncology at [address] [address] 01/14/2025 11:00 AM EDT Laboratory Appointment Lab [address] [phone] 01/14/2025 1:[address] [place] [phone] Regino Carolina MD [facility] [address] 01/14/2025 2:00 PM EDT Office [place] [phone] Regino Carolina MD [facility] [place] [address] documented as of this encounter Procedures Procedure Name Priority Date/Time Associated Diagnosis Comments COMPREHENSIVE METABOLIC PANEL Routine 05/04/2023 documented in this encounter Results * (ABNORMAL) Comprehensive metabolic panel (non-fasting) (05/04/2023) Glucose 104 Blood Urea Nitrogen 15 Creatinine 0.7 Sodium 134(L) Potassium 4.7 Calcium 9.3 Protein, Total 7.5 Albumin 4.1 Bilirubin, Total 0.7 Alkaline Phosphatase 115 Aspartate Aminotransferase 42(H) Alanine Aminotransferase 76(H) Blood 05/04/2023 Historical Provider CHEMISTRY ORDERAB LES documented in this encounter Visit Diagnoses Diagnosis Malignant neoplasm of upper-outer quadrant of left breast in female, estrogen receptor positive documented in this encounter Care Teams Wood Casket Assembler Relationship Specialty Start Date End Date Erika JESUS ALBERTO Moura [address] [place] [address] PCP - General Family Medicine 09/23/19 documented as of this encounter
--- OUTSIDE RECORDS SUMMARY | 2024-05-10 14:50 | XMS_ITS | Encounter Summary ---
Author Organization [facility] Address [facility] [place] [address] Care Team Providers Care Receiving Supervisor Name Role Phone Zeny James SUPPORT TECHNICIAN Primary Care Provider Encounter Details Date Type [...] 2:00 PM EDT Office Visit Hematology/Oncology at [address] [phone] Jeffery Sanz MD [facility] DR HEMATOLOGY [place] [address] Mary Nails APRN [address] [place] [address] DR MEDICAL ONCOLOGY [place], [place] [id number] 01/01/2025 2:30 PM EDT Infusion Hematology Oncology at [address] [phone] 01/14/2025 11:00 AM EDT Laboratory Appointment Lab [address] [place] [phone] 01/14/2025 1:[address] [place] [phone] Regino Carolina MD [facility] [place] [address] 01/14/2025 2:00 PM EDT Office Visit [place] [phone] Regino Carolina MD [facility] [place] [address] documented as of this encounter Visit Diagnoses Not on filedocumented in this encounter Care Teams Receiving Supervisor Relationship Specialty Start Date End Date Zeny James APRN [address] [facility] [address] [facility] 1 [place] [address] PCP - General Family Medicine 09/23/19 documented as of this encounter
--- OUTSIDE RECORDS SUMMARY | 2024-05-10 14:50 | XMS_ITS | Encounter Summary ---
Author Organization [facility] [place] [address] Care Team Providers Care Java Jsf Developer Name Role Phone Zeny James APRN Primary Care Provider [phone]- [phone] Reason for Visit * Reason Comments Basal Cell Carcinoma * Consultation (Routine) - Closed Specialty Diagnoses / Procedures Referred By Nir potts Referred To Contact Dermatology Diagnoses Basal cell carcinoma (BCC) of left nasal sidewall Estela Velasquez MD [facility] DR MARC[facility] [place] [address] Jayro Mack MD [facility] DR [address]ARC[address] [place] [address] Referral ID Status Reason Start Date Expiration Date V isits Requested Visits Authorized [id number] Closed Consult, Test & Treat 12/30/2022 12/30/2023 1 1 Encounter Details Date Type Department Care Team (Latest Contact Info) Description 02/20/2023 11:00 AM EST Procedure visit Dermatology at [facility] [address] [place] [address] Jayro Mack MD [facility] DR MARCUS [place] [address] Basal cell carcinoma (BCC) of left nasal [...] pounds until your sutures are removed. Some cycle liaison may need to be delayed or delegated [...] as often as is recommended by your cabinet assembler, for new skin cancers. This is once [...] it. If after hours, please call the tie in machine operator or [phone] and ask for the cabinet assembler on-call. If you have any non-urgent questions or concerns, please feel free to call my office or contact me through our patient portal, [facility], at [email or web address] How to contact us during business hours Dermatology at [facility] Road: Mohs scheduling or Mohs follow-up appointments: [phone] documented in this encounter Progress Notes * [...] and follow up with his or her cabinet assembler or other skin provider. 5. Discussed avoiding [...] Reviewed and signed by: Jayro Mack Dermatology [facility] * Jayro Mack MD - 02/20/2023 11:00 AM EST Mohs micrographic Surgery Operative Report Patient name: Linda Serrano : 1945 Date: 02/20/2023 Staff Surgeon and Pathologist: Jayro Mack MD PhD Nursing/Mechanical Integrity Specialist(s): Essie Portillo RN Aligner Barrel And Receiver (s): Armida Joyner Pre-operative diagnosis: Basal Cell [...] The site was confirmed with the patient/authorized vendor representatives/referring physician and/or a photograph form time of [...] Surgery and Dermatologic Oncology Department of Dermatology [address] [place] [address] Repair Report (Flap) Patient name: Linda Serrano Staff Surgeon: Jayro Mack MD PhD Oral Communication Instructor(s): same as above marketing assistant manager: Arline Sifuentes MD Date: 02/20/2023 Clinical Diagnosis: skin and soft tissue defect status post Mohs micrographic surgery Location/Site: left nasal sidewall Indication: repair of wound with spiritism of anatomy/function Defect size to be repaired: [...] Surgery and Dermatologic Oncology Department of Dermatology [address] [place] [id number] Note initiated by Essie Portillo RN. Essie Portillo RN has performed the documentation for this encounter in the presence of and acting as a scribe for Dr. Mack I performed the above scribed service and agree with the accuracy of the documentation in this encounter. Reviewed and signed by: Jayro Mack Dermatology [facility] documented in this encounter Plan of Treatment Upcoming Encounters Date Type Department Care Team (Late st Contact Info) Description 01/01/2025 2:00 PM EDT Office Visit Hematology/Oncology at [address] [phone] Jeffery Sanz MD [facility] DR HEMATOLOGY [place] [address] Mary Nails APRN [address] [place] [address] DR MEDICAL ONCOLOGY [place], [place] [id number] 01/01/2025 2:30 PM EDT Infusion Hematology Oncology at [address] [phone] 01/14/2025 11:00 AM EDT Laboratory Appointment Lab [address] [place] [address] 01/14/2025 1:[address] [place] [address] Regino Carolina MD [facility] [place] [address] 01/14/2025 2:00 PM EDT Office [place] [address] Regino Carolina MD [facility] [place] [address] Scheduled Referrals Name Type Priority Associated Diagnoses Order Schedule Referral to Dermatology Outpatient Referral Routine Basal cell carcinoma (BCC) of left nasal sidewall Ordered: 12/30/2022 documented as of this encounter Visit Diagnoses Diagnosis Basal cell carcinoma (BCC) of left nasal sidewall documented in this encounter Care Teams Java Jsf Developer Relationship Specialty Start Date End Date Zeny James APRN [address] [place] [address] [address] [place] [address] PCP - General Family Medicine 09/23/19 documented as of this encounter
--- OUTSIDE RECORDS SUMMARY | 2024-05-10 14:50 | XMS_ITS | Encounter Summary ---
[place] [address] Care Team Providers Care Instructional Interventionist Name Role Phone Zeny James APRN Primary Care Provider [phone] Reason for Referral * Diagnostic Test (Routine) - Closed Specialty Diagnoses / Procedures Referred By Contac t Referred To Contact Radiology Diagnoses IPMN (intraductal papillary mucinous neoplasm) Procedures CT Abdomen w Contrast Regino Carolina MD [facility] [place] [address] [facility] [place] [address] Referral ID Status Reason Start Date Expiration Date V isits Requested Visits Authorized [id number] Closed Specialty Service Requested 12/28/2021 06/28/2023 1 1 Reason for Visit * Diagnostic Test (Routine) - Closed Specialty Diagnoses / Procedures Referred By Contac t Referred To Contact Radiology Diagnoses IPMN (intraductal papillary mucinous neoplasm) Procedures CT Abdomen w Contrast Regino Carolina MD [facility] [place] [address] [facility] [place] [address] Referral ID Status Reason Start Date Expiration Date V isits Requested Visits Authorized [id number] Closed Specialty Service Requested 12/28/2021 06/28/2023 1 1 Encounter Details Date Type Department Care Team (Late st Contact Info) Description 01/03/2023 1:10 PM EDT - 01/03/2023 11:59 PM EDT Hospital Encounter CT Scan at [facility] [place] [address] Regino Carolina MD [facility] [place] [address] IPMN (intraductal papillary mucinous neoplasm); Malignant neoplasm [...] daily. Blood-Glucose Meter Misc 1 Application by [employer].(Non-Drug; Combo Route) route 3 times daily (before [...] (E.C.) Take 81 mg by mouth daily. cholecalciferol, Vitamin D3, 10 mcg (400 unit) Capsule Take 1 capsule by mouth daily. 01/19/2023 anastrozole (Arimidex) 1 mg tabletIndications: Malignant neoplasm of upper-outer quadrant of left breast in female, estrogen receptor positive Take 1 tablet by mouth daily. 90 tablet 3 11/10/2022 11/13/2023 nidhay-ienyeeaj-oo ylase ([place]) 24,000-76,000 -120,[address] capsule TAKE 3 [...] PM EDT Office Visit Hematology/Oncology at [address] [phone] Jeffery Sanz MD [facility] HEMATOLOGY [place] [address] Mary Nails CARBIDE TOOL MAKER [address] [place] [address] DR MEDICAL ONCOLOGY [place], [place] [id number] 01/01/2025 2:30 PM EDT Infusion Hematology Oncology at [address] [address] 01/14/2025 11:00 AM EDT Laboratory Appointment Lab [place] [phone] 01/14/2025 1:[address] [place] [phone] Regino Carolina MD [facility] [place] [address] 01/14/2025 2:00 PM EDT Office [place] [phone] Regino Carolina MD [facility] [place] [address] Scheduled Orders Name Type Priority Associated Diagnoses [...] who have questions please contact the health healthcare administrative assistant that requested your imaging first. ? [...] patients who have questions please contactthe health healthcare administrative assistant that requested your imaging first. Electronically signed by: Jayro Maier MD, [facility]([phone]), at 01/04/2023 8:45 AM Regino Carolina MD IM CT ORDERABLES documented in this encounter Visit [...] Intravenous, ONCE PRN, 1 dose, Starting on 01/03/23 at 1425, Until 01/03/23 at 1426, Per Protocol, Warning Vesicant/Irritant Medication , Radiology Contrast, Routine Given 01/03/2023 2:26 PM EDT 65 mLs documented in this encounter Care Teams Instructional Interventionist Relationship Specialty Start Date End Date Zeny James APRN [address] [facility] 1 [place] [address] PCP - General Family Medicine 09/23/19 documented as of this encounter
--- OUTSIDE RECORDS SUMMARY | 2024-05-10 14:50 | XMS_ITS | Encounter Summary ---
Author Organization [facility] Address [facility] [place] [address] Care Team Providers Care Sports Physical Therapist Name Role Phone Zeny James SCRAP WORKER Primary Care Provider Encounter Details Date Type [...] 2:00 PM EDT Office Visit Hematology/Oncology at [address] [phone] Jeffery Sanz MD [facility] [place] [address] Mary Nails APRN [address] [place] [address] DR MEDICAL ONCOLOGY [place], [place] [id number] 01/01/2025 2:30 PM EDT Infusion Hematology Oncology at [address] [phone] 01/14/2025 11:00 AM EDT Laboratory Appointment Lab [address] [place] [phone] 01/14/2025 1:[address] [place] [phone] Regino Carolina MD [facility] [place] [address] 01/14/2025 2:00 PM EDT Office Visit [place] [phone] Regino Carolina MD [facility] [place] [address] documented as of this encounter Visit Diagnoses Not on filedocumented in this encounter Care Teams Sports Physical Therapist Relationship Specialty Start Date End Date Zeny James APRN [address] [facility] 1 [place] [address] PCP - General Family Medicine 09/23/19 documented as of this encounter
--- OUTSIDE RECORDS SUMMARY | 2024-05-10 14:50 | XMS_ITS | Encounter Summary ---
Author Organization [facility] Address [facility] [place] [address] Care Team Providers Care Recycler Name Role Phone Zeny James APRN Primary Care Provider Encounter Details Date Type Department Care Team (Late st Contact Info) Description 02/08/[address] [place] [phone] Essie Portillo, RN Social History Tobacco Use [...] 2:00 PM EDT Office Visit Hematology/Oncology at [address] [phone] Jeffery Sanz MD [facility] DR HEMATOLOGY [place] [address] Mary Nails APRN [address] [place] [address] [place] [address] 01/01/2025 2:30 PM EDT Infusion Hematology Oncology at [address] [phone] 01/14/2025 11:00 AM EDT Laboratory Appointment Lab [address] [place] [phone] 01/14/2025 1:[address] [place] [phone] Regino Carolina MD [facility] [place] [address] 01/14/2025 2:00 PM EDT Office [place] [address] Regino Carolina MD [facility] [place] [address] documented as of this encounter Visit Diagnoses Not on filedocumented in this encounter Care Teams Recycler Relationship Specialty Start Date End Date Zeny James APRN [address] [place] [address] [address] [place] [address] PCP - General Family Medicine 09/23/19 documented as of this encounter
--- OUTSIDE RECORDS SUMMARY | 2024-05-10 14:50 | XMS_ITS | Encounter Summary ---
Author Organization [facility] D[place] [address] Care Team Providers Care Source Water Protection Specialist Name Role Phone Zeny James APRN Primary Care Provider Encounter Details Date Type Department Care Team (Late st Contact Info) Description 12/22/2022 10:05 PM EDT Ancillary Procedure Radiology Library at [facility] [place] [phone] Zeny James APRN [address] [place], [place] [id number] Social History Tobacco Use Types Packs/Day Years [...] 2:00 PM EDT Office Visit Hematology/Oncology at [address] [phone] Jeffery Sanz MD [facility] [place] [address] Mary Nails APRN [address] [place] [address] [place] [address] 01/01/2025 2:30 PM EDT Infusion Hematology Oncology at [address] [phone] 01/14/2025 11:00 AM EDT Laboratory Appointment Lab [address] [place] [phone] 01/14/2025 1:[address] [place] [phone] Regino Carolina MD [facility] [place] [address] 01/14/2025 2:00 PM EDT Office Visit [place] [address] Regino Carolina MD [facility] [place] [place] [address] documented as of this encounter Procedures Procedure Name Priority Date/Time Associated Diagnosis Comments FILM LIBRARY- STORAGE ONLY DXA IMAGES Routine 12/22/2022 10:01 PM EDT documented in this encounter Results * Film Library- Storage Only DXA Images (12/22/2022 10:01 PM EDT) Narrative [facility] - 12/22/2022 10:01 PM EDT This exam is auto-finalizing. It's purpose is for storage only. Zeny James APRN IMG FILM LIBRARY OR DERABLES Performing Organization Address City/State/[facility] Co de Phone Number [place], [place] documented in this encounter Visit Diagnoses Not on filedocumented in this encounter Care Teams Source Water Protection Specialist Relationship Specialty Start Date End Date Zeny James APRN [address] [place] [address] PCP - General Family Medicine 09/23/19 documented as of this encounter
--- OUTSIDE RECORDS SUMMARY | 2024-05-10 14:50 | XMS_ITS | Encounter Summary ---
Author Organization [facility] Address [facility] [place] [address] Care Team Providers Care Oil Dispatcher Name Role Phone Zeny James APRN Primary Care Provider Reason for Visit * Reason Comments Follow-up Encounter Details Date Type Department Care Team (Late st Contact Info) Description 01/03/2023 3:30 PM EDT Office [place] [address] Regino Carolina MD [facility] [place] [address] Exocrine pancreatic insufficiency Social History Tobacco Use [...] is now a 77 year woman from [place], [place]. She presented to [facility] ED on 2019 [...] of pancreatic duct/cyst fluid cytopathology per Acc# [id number] showed neoplastic Cells Present. Abundant macrophages, mixed [...] with for her stage I ILC ER+, [place]-, HER2-- IDC of the left breast. She [...] GJ and PICC TPN Pathology: 03/23/2020 Acc# [id number] Surgical Pathology DIAGNOSIS A - Portal vein [...] well. 01/03/2023 This note was created using TapShield (CloudMine) voice recognition software. Addendum: Recent Results (from [...] PM EDT Office Visit Hematology/Oncology at [address] [phone] Jeffery Sanz MD [facility] DR [place] [address] Mary Nails APRN [address] [place] [address] DR MEDICAL ONCOLOGY [place], [place] [id number] 01/01/2025 2:30 PM EDT Infusion Hematology Oncology at [address] [phone] 01/14/2025 11:00 AM EDT Laboratory Appointment Lab [place] [phone] 01/14/2025 1:[address] [place] [phone] Regino Carolina MD [facility] [place] [address] 01/14/2025 2:00 PM EDT Office [place] [phone] Regino Carolina MD [facility] [address] documented as of this encounter Visit Diagnoses Diagnosis Exocrine pancreatic insufficiency Other specified disease of pancreas documented in this encounter Care Teams Oil Dispatcher Relationship Specialty Start Date End Date Zeny James APRN [address] [place] [address] PCP - General Family Medicine 09/23/19 documented as of this encounter
--- OUTSIDE RECORDS SUMMARY | 2024-05-10 14:50 | XMS_ITS | Encounter Summary ---
Author Organization [facility] Address [facility] [place] [address] Care Team Providers Care Mitering Machine Operator Name Role Phone Zeny James APRN Primary Care Provider [phone] Encounter Details Date Type Department Care Team (Late st Contact Info) Description 01/11/2023 Orders [place] [address] Regino Carolina MD [facility] [place] [address] Social History Tobacco Use Types Packs/Day Years [...] 2:00 PM EDT Office Visit Hematology/Oncology at [address] [phone] Jeffery Sanz MD [facility] DR [place] [address] Mary Nails APRN [address] [place] [address] DR MEDICAL ONCOLOGY [place], [place] [address] 01/01/2025 2:30 PM EDT Infusion Hematology Oncology at [address] [phone] 01/14/2025 11:00 AM EDT Laboratory Appointment Lab [place] [phone] 01/14/2025 1:[address] [place] [place] [phone] Regino Carolina MD [facility] [place] [address] 01/14/2025 2:00 PM EDT Office [place] [address] Regino Carolina MD [facility] [place] [address] documented as of this encounter Visit Diagnoses Not on filedocumented in this encounter Care Teams Mitering Machine Operator Relationship Specialty Start Date End Date Zeny James APRN [address] [place] [address] [address] [place] [address] PCP - General Family Medicine 09/23/19 documented as of this encounter
--- OUTSIDE RECORDS SUMMARY | 2024-05-10 14:50 | XMS_ITS | Encounter Summary ---
[place] [address] Care Team Providers Care Relay Repairer Name Role Phone Zeny James JESUS ALBERTO Primary Care Provider Encounter Details Date Type Department Care Team (Latest Contact Info) Description 01/03/2023 12:45 PM EDT Laboratory Appointment Lab [address] [place] [phone] Vitamin D deficiency; History of pancreatectomy; Iron [...] 2:00 PM EDT Office Visit Hematology/Oncology at [address] [phone] Jeffery Sanz MD [facility] [place] [address] Mary Nails APRN [address] [place] [address] DR MEDICAL ONCOLOGY [place], [place] [address] 01/01/2025 2:30 PM EDT Infusion Hematology Oncology at [address] [phone] 01/14/2025 11:00 AM EDT Laboratory Appointment Lab [address] [phone] 01/14/2025 1:[address] [place] [phone] Regino Carolina MD [facility] [place] [address] 01/14/2025 2:00 PM EDT Office [place] [address] Regino Carolina MD [facility] [place] [address] documented as of this encounter Procedures Procedure Name Priority Date/Time Associated Diagnosis Comments HEMOGRAM Routine 01/03/2023 12:32 PM EDT History of pancreatectomy DIFFERENTIAL, AUTOMATED Routine 01/03/2023 12:32 PM EDT History of pancreatectomy VITAMIN B1, WHOLE BLOOD Routine 01/03/2023 12:32 PM EDT History of pancreatectomy IRON AND TIBC STAT 01/03/2023 12:32 PM EDT Iron deficiency anemia due to chronic blood loss VITAMIN A STAT 01/03/2023 12:32 PM EDT History of pancreatectomy VITAMIN D, 25-HYDROXY STAT 01/03/2023 12:32 PM EDT Vitamin D deficiency CBC (WITH DIFF) Routine 01/03/2023 12:32 PM EDT History of pancreatectomy VITAMIN E STAT 01/03/2023 12:32 PM EDT History of pancreatectomy FOLATE, SERUM Routine 01/03/2023 12:32 PM EDT History of pancreatectomy FERRITIN STAT 01/03/2023 12:32 PM EDT Iron deficiency anemia due to chronic blood loss VITAMIN B12 STAT 01/03/2023 12:32 PM EDT History of pancreatectomy COMPREHENSIVE METABOLIC PANEL Routine 01/03/2023 12:32 PM EDT History of pancreatectomy documented in this encounter Results * Differential, Automated (01/03/2023 12:32 PM EDT) Pathologist [facility] Neutrophil % 67.7 % [facility] Neutrophil Absolute 5.27 1.70 - 6.10 x10(3)/[facility] Lymph % 22.3 % [facility] Lymphocytes Abs 1.7 0.9 - 3.2 x10(3)/[facility] Monocyte % 7.4 % [facility] Monocyte Abs 0.6 0.3 - 0.9 x10(3)/[facility] Eos % 1.7 % [facility] Eosinophils Abs 0.1 0.0 - 0.4 x10(3)/[facility] Basophil % 0.8 % [facility] Baso Absolute 0.1 0.0 - 0.1 x10(3)/[facility] LABORAT[facility] Immature Gran % 0.10 % [facility] Comment: Immature granulocytes(IG's)percentage and absolute count will include metamyelocytes, myelocytes, and promyelocytes. Blood smears from CBCs yielding IG's will be scanned manually for concordance. If this scan disagrees with the automated IG or if promyelocytes are noted, a manual differential will be performed. Immature Gran Absolute 0.01 0.00 - 0.04 x10(3)/[facility] Blood 01/03/2023 12:3 2 PM EDT 01/03/2023 12:39 PM EDT Narrative Resulting Agency Comment Spec In Lab Regino Carolina MD HEMATOLOGY ORDERAB LES [facility] [place] [address] * Hemogram (01/03/2023 12:32 PM EDT) White Blood Cell 7.8 4.0 - 9.5 x10(3)/[facility] Red Blood Cell 4.49 4.00 - 5.21 x10(6)/[facility] Hemoglobin 13.8 11.7 - 15.5 g/dL [facility] Hematocrit 41.4 35.7 - 45.8 % [facility] Mean Cell Volume 92.2 82.6 - 94.4 fL [facility] Mean Cell Hemoglobin 30.7 27.1 - 32.0 pg [facility] Mean Cell Hemoglobin Concentration 33.3 31.7 - 35.0 g/dL [facility] Platelet 310 145 - 357 x10(3)/[facility] RDW Standard Deviation 42.7 37.0 - 46.0 fL [facility] RDW coefficient of variation 12.6 11.5 - 14.1 % [facility] Mean Platelet Volume 9.7 7.6 - 12.9 fL [facility] NRBC% auto 0.0 % [facility] NRBC Absolute 0.000 0.000 - 0.000 x10(3)/[facility] Blood 01/03/2023 12:3 2 PM EDT 01/03/2023 12:39 PM EDT Narrative Resulting Agency Comment Spec In Lab Regino Carolina MD HEMATOLOGY ORDERAB LES Performing Organization Address City/[facility]/ZIP Co de Phone Number [facility] [place] [address] * Iron and TIBC (01/03/2023 12:32 PM EDT) Iron 148 30 - 150 mcg/dL [facility] TIBC 342 250 - 450 mcg/dL [facility] Iron Saturation 43 20 - 50 % [facility] Blood 01/03/2023 12:3 2 PM EDT 01/03/2023 12:39 PM EDT Narrative Resulting Agency Comment Spec In Lab Regino Carolina MD CHEMISTRY ORDERABL ES Performing Organization Address City/[facility]/ZIP Co de Phone Number [facility] [place] [address] * Ferritin (01/03/2023 12:32 PM EDT) Ferritin 33 30 - 400 ng/mL [facility] Comment: Pediatric reference ranges not verified at [facility], interpret with caution. Reference ranges for females greater than 50 years of age approach values for men, i.e., 30-400 ng/mL. Blood 01/03/2023 12:3 2 PM EDT 01/03/2023 12:39 PM EDT Narrative Resulting Agency Comment Spec In Lab Regino Carolina MD CHEMISTRY ORDERABL ES Performing Organization Address City/[facility]/ZIP Co de Phone Number [facility] [place] [address] * Vitamin A (01/03/2023 12:32 PM EDT) Pathologist [facility] Vitamin A (AUGUST) 45.2 32.5 - 78.0 mcg/dL [facility] Comment: ADDITIONAL INFORMATION This test was developed and its performance characteristics determined by [facility] in a manner consistent with CLIA requirements. This test has not been cleared or approved by the U.S. Food and Drug Administration. Test Performed by: [facility] [place] [address] Microbiology Professor: Denzel Angel M.D. Ph.D.; CLIA# [id number] Blood 01/03/2023 12:3 2 PM EDT 01/03/2023 3:06 PM EDT Narrative Resulting Agency Comment Spec In Lab Regino Carolina MD LAB SEND OUT ORDER MAGAN Performing Organization Address [facility] Co de Phone Number [facility] [place] [address] * Vitamin E (01/03/2023 12:32 PM EDT) [facility] Vitamin E 9.3 5.5 - 17.0 mg/L [facility] Comment: ADDITIONAL INFORMATION This test was developed and its performance characteristics determined by [facility] in a manner consistent with CLIA requirements. This test has not been cleared or approved by the U.S. Food and Drug Administration. Test Performed by: [facility] [place] [address] Microbiology Professor: Denzel Angel M.D. Ph.D.; CLIA# [id number] Blood 01/03/2023 12:3 2 PM EDT 01/03/2023 3:08 PM EDT Narrative Resulting Agency Comment Spec In Lab Regino Carolina MD LAB SEND OUT ORDER MAGAN [facility] [place] [address] * Vitamin B12 (01/03/2023 12:32 PM EDT) Vitamin B12 831 232 - 1,245 pg/mL [facility] Blood 01/03/2023 12:3 2 PM EDT 01/03/2023 12:39 PM EDT Narrative Resulting Agency Comment Spec In Lab Regino Carolina MD CHEMISTRY ORDERABL ES Performing Organization Address [facility] Co de Phone Number [facility] [place] [address] * (ABNORMAL) Comprehensive metabolic panel (non-fasting) (01/03/2023 12:32 PM EDT) Glucose 155 65 - 199 mg/dL [facility] Comment:Diabetes: >=200 mg/d L plus symptoms Blood Urea Nitrogen 16 8 - 18 mg/dL [facility] Creatinine 0.54(L) 0.70 - 1.20 mg/dL [facility] Sodium 140 135 - 145 mmol/L [facility] Potassium 4.3 3.5 - 5.0 mmol/L [facility] Comment: Please note: ??Patients with WBC >100,000 may have falsely elevated Potassium levels. ??For accurate Potassium quantification in these patients send serum separator tube (gold top) for subsequent determinations. ??Contact the Clinical Chemistry Laboratory if there are any questions. Chloride 102 98 - 107 mmol/L [facility] Carbon Dioxide 26 22 - 31 mmol/L [facility] Anion Gap 12 5 - 15 mmol/L [facility] Calcium 8.6 8.5 - 10.5 mg/dL [facility] Protein, Total 6.5 6.1 - 8.0 g/dL [facility] Albumin 4.4 3.2 - 5.2 g/dL [facility] Aspartate Aminotransferase 37(H) 0 - 30 unit/L [facility] Alanine Aminotransferase 53(H) 0 - 30 unit/L [facility] Alkaline Phosphatase 137(H) 35 - 105 unit/L [facility] Bilirubin, Total 0.5 0.2 - 1.3 mg/dL [facility] Est Glomerular Filtration Rate 95 >=60 mL/min/1. 73 m?? [facility] Comment: This patient's estimated GFR [...] MD CHEMISTRY ORDERABL ES Performing Organization Address [facility] Co de Phone Number [facility] [place] [address] * Folate, serum (01/03/2023 12:32 PM EDT) Folate 18.8 4.8 - 24.2 ng/mL [facility] Blood 01/03/2023 12:3 2 PM EDT 01/03/2023 12:39 PM EDT Narrative Resulting Agency Comment Spec In Lab Regino Caorlina MD CHEMISTRY ORDERABL ES Performing Organization Address [facility] Co de Phone Number [facility] [place] [address] * (ABNORMAL) Vitamin B1, whole blood (01/03/2023 12:32 PM EDT) Vit B1 Lvl Wb (AUGUST) 185(H) 70 - 180 nmol/L [facility] Comment: ADDITIONAL INFORMATION This test was developed and its performance characteristics determined by [facility] in a manner consistent with CLIA requirements. This test has not been cleared or approved by the U.S. Food and Drug Administration. Test Performed by: [facility] [address] [place] [address] Microbiology Professor: Denzel Angel M.D. Ph.D.; CLIA# [id number] Blood 01/03/2023 12:3 2 PM EDT 01/03/2023 3:21 PM EDT Narrative Resulting Agency Comment Spec In Lab Regino Carolina MD LAB SEND OUT ORDER MAGAN Performing Organization Address City/[facility]/ZIP Co de Phone Number [facility] [place] [address] * Vitamin D, 25-Hydroxy (01/03/2023 12:32 PM EDT) Vitamin D Total 25 OH 27 21 - 100 ng/mL [facility] Vit D Interp Insufficient [facility] Blood 01/03/2023 12:3 2 PM EDT 01/03/2023 12:39 PM EDT Narrative Resulting Agency Comment Spec In Lab Regino Carolina MD CHEMISTRY ORDERABL ES [facility] [place] [address] documented in this encounter Visit Diagnoses Diagnosis Vitamin D deficiency Unspecified vitamin D deficiency 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
--- OUTSIDE RECORDS SUMMARY | 2024-05-10 14:50 | XMS_ITS | Encounter Summary ---
Author Organization [facility] [place] [address] Care Team Providers Care Gill Tender Name Role Phone Erika Zeny GRANDA Primary Care Provider Encounter Details Date Type Department Care Team (Late st Contact Info) Description 04/29/2023 Telephone Hematology/Oncology at [address] [phone] Rhona Hogan, JESUS ALBERTO Social History Tobacco Use Types Packs/Day Years [...] 2:00 PM EDT Office Visit Hematology/Oncology at [address] [phone] Jeffery Sanz MD [facility] HEMATOLOGY [place] [address] Mary Nails APRN [address] [place] [address] DR MEDICAL ONCOLOGY [place], [place] [address] 01/01/2025 2:30 PM EDT Infusion Hematology Oncology at [address] [phone] 01/14/2025 11:00 AM EDT Laboratory Appointment Lab [address] [phone] 01/14/2025 1:[address] [place] [phone] Regino Carolina MD [facility] [place] [address] 01/14/2025 2:00 PM EDT Office [place] [phone] Regino Carolina MD [facility] [place] [address] Scheduled Orders Name Type Priority Associated Diagnoses Orde r Schedule Comprehensive metabolic panel (non-fasting) Lab STAT Malignant neoplasm of left breast in female, estrogen receptor positive, unspecified site of breast shelter current use of aromatase inhibitor Osteopenia due to cancer therapy Expected: 05/30/2023, Expires: 04/29/2024 documented as of this encounter Visit Diagnoses Diagnosis Malignant neoplasm of left breast in female, estrogen receptor positive, unspecified site of breast shelter current use of aromatase inhibitor Use of aromatase inhibitors 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
--- OUTSIDE RECORDS SUMMARY | 2024-05-10 14:50 | XMS_ITS | Encounter Summary ---
Author Organization [facility] Address [facility] [place] [address] Care Team Providers Care Access Liaison Name Role Phone Zeny James APRN Primary Care Provider Encounter Details Date Type Department Care Team (Late st Contact Info) Description 07/12/2023 Telephone Dermatology at [facility] [address] [place] [phone] Estela Velasquez MD [facility] [address] [place] [address] Social History Tobacco Use Types Packs/Day Years [...] biopsy results she can be reached at [phone] documented in this encounter Plan of Treatment Upcoming Encounters Date Type Department Care Team (Late st Contact Info) Description 01/01/2025 2:00 PM EDT Office Visit Hematology/Oncology at [address] [phone] Jeffery Sanz MD [facility] DR [place] [address] Mary Nails APRN [address] [place] [address] [place] [address] 01/01/2025 2:30 PM EDT Infusion Hematology Oncology at [address] [phone] 01/14/2025 11:00 AM EDT Laboratory Appointment Lab [address] [address] 01/14/2025 1:[address] [place] [address] Regino Carolina MD [facility] [place] [address] 01/14/2025 2:00 PM EDT Office [place] [address] Regino Carolina MD [facility] [place] [address] documented as of this encounter Visit Diagnoses Not on filedocumented in this encounter Care Teams Access Liaison Relationship Specialty Start Date End Date Zeny James APRN [address] [place] [address] PCP - General Family Medicine 09/23/19 documented as of this encounter
--- OUTSIDE RECORDS SUMMARY | 2024-05-10 14:50 | XMS_ITS | Encounter Summary ---
Author Organization [facility] Address [facility] [place] [address] Care Team Providers Care Cut Out Operator Name Role Phone Zeny James APRN Primary Care Provider Encounter Details Date Type Department Care Team (Late st Contact Info) Description 03/01/2023 11:00 AM EST Office Visit Dermatology at [facility] [address] [place] [address] Jayro Mack MD [facility] DR MARCUS [place] [address] Encounter for removal of sutures Social History [...] 2. Follow up with referring provider or charging operator for skin exams. 3. Follow up with Dr. Mack: as needed Note initiated by LEE Thrasher LNA has performed the documentation for this encounter in the presence of and acting as a scribe for Dr. Mack I performed the above scribed service and agree with the accuracy of the documentation in this encounter. Reviewed and signed by: Jayro Mack Dermatology [facility] Jayro Mack MD PhD Mohs Micrographic Surgery and Dermatologic Oncology Department of Dermatology documented in this encounter Plan of Treatment Upcoming Encounters Date Type Department Care Team (Late st Contact Info) Description 01/01/2025 2:00 PM EDT Office Visit Hematology/Oncology at [address] [phone] Jeffery Sanz MD [facility] DR HEMATOLOGY [place] [address] Mary Nails APRN [address] [place] [address] DR MEDICAL ONCOLOGY [place], [place] [id number] 01/01/2025 2:30 PM EDT Infusion Hematology Oncology at [address] [phone] 01/14/2025 11:00 AM EDT Laboratory Appointment Lab [address] [address] 01/14/2025 1:[address] [place] [address] Regino Carolina MD [facility] [place] [address] 01/14/2025 2:00 PM EDT Office [place] [phone] Regino Carolina MD [facility] [place] [address] documented as of this encounter Visit Diagnoses Diagnosis Encounter for removal of sutures documented in this encounter Care Teams Cut Out Operator Relationship Specialty Start Date End Date Erika JESUS ALBERTO Moura [address] [place] [address] PCP - General Family Medicine 09/23/19 documented as of this encounter
--- OUTSIDE RECORDS SUMMARY | 2024-05-10 14:50 | XMS_ITS | Encounter Summary ---
Author Organization [facility] Address [facility] [place] [address] Care Team Providers Care Outreach Associate Name Role Phone Zeny James APRN Primary Care Provider Encounter Details Date Type Department Care Team (Late st Contact Info) Description 01/31/2023 Notes [place] [phone] Maylin Dodge Social History Tobacco Use Types [...] 2:00 PM EDT Office Visit Hematology/Oncology at [address] [phone] Jeffery Sanz MD [facility] DR HEMATOLOGY [place] [address] Mary Nails APRN [address] [place] [address] [place] [address] 01/01/2025 2:30 PM EDT Infusion Hematology Oncology at [address] [phone] 01/14/2025 11:00 AM EDT Laboratory Appointment Lab 3[place] [address] 01/14/2025 1:[address] [place] [address] Regino Carolina MD [facility] [place] [address] 01/14/2025 2:00 PM EDT Office Visit General Surgery at [facility] [place] [address] Regino Carolina MD [facility] [place] [address] documented as of this encounter Visit Diagnoses Not on filedocumented in this encounter Care Teams Outreach Associate Relationship Specialty Start Date End Date Zeny James APRN [address] [place] [address] PCP - General Family Medicine 09/23/19 documented as of this encounter
--- OUTSIDE RECORDS SUMMARY | 2024-05-10 14:50 | XMS_ITS | Encounter Summary ---
Author Organization [facility] Address [facility] [place] [address] Care Team Providers Care Subassembly Supervisor Name Role Phone Zeny James WELL SITE DRILLING ENGINEER Primary Care Provider Encounter Details Date Type [...] PM EDT Office Visit Hematology/Oncology at [address] [phone] Jeffery Sanz MD [facility] DR [place] [address] Mary Nails APRN [address] [place] [address] DR MEDICAL ONCOLOGY [place], [place] [id number] 01/01/2025 2:30 PM EDT Infusion Hematology Oncology at [address] [phone] 01/14/2025 11:00 AM EDT Laboratory Appointment Lab [address] [place] [phone] 01/14/2025 1:[address] [place] [phone] Regino Carolina MD [facility] [place] [address] 01/14/2025 2:00 PM EDT Office Visit [place] [phone] Regino Carolina MD [facility] [place] [address] documented as of this encounter Visit Diagnoses Not on filedocumented in this encounter Care Teams Subassembly Supervisor Relationship Specialty Start Date End Date Zeny James APRN [address] [facility] [address] [place] [address] PCP - General Family Medicine 09/23/19 documented as of this encounter
--- OUTSIDE RECORDS SUMMARY | 2024-05-10 14:50 | XMS_ITS | Encounter Summary ---
Author Organization [facility] Address [facility] [place] [address] Care Team Providers Care Crew Lead Name Role Phone Zeny James LEAD SHAREPOINT DEVELOPER Primary Care Provider [phone] Encounter Details Date Type Department Care Team [...] PM EDT Office Visit Hematology/Oncology at [address] [phone] Jeffery Sanz MD [facility] DR [place]EM[place] [address] Mary Nails APRN [address] [place] [address] DR MEDICAL ONCOLOGY [place], [place] [id number] 01/01/2025 2:30 PM EDT Infusion Hematology Oncology at [address] [phone] 01/14/2025 11:00 AM EDT Laboratory Appointment Lab [address] [place] [phone] 01/14/2025 1:[address] [place] [phone] Regino Carolina MD [facility] [place] [address] 01/14/2025 2:00 PM EDT Office Visit [place] [phone] Regino Carolina MD [facility] [place] [address] documented as of this encounter Visit Diagnoses Not on filedocumented in this encounter Care Teams Crew Lead Relationship Specialty Start Date End Date Zeny James APRN [address] [facility] 1 [place] [address] PCP - General Family Medicine 09/23/19 documented as of this encounter
--- OUTSIDE RECORDS SUMMARY | 2024-05-10 14:50 | XMS_ITS | Encounter Summary ---
Author Organization [facility] Address [facility] [place] [address] Care Team Providers Care Information Services Consultant Name Role Phone Zeny James APRN Primary Care Provider Encounter Details Date Type Department Care Team (Late st Contact Info) Description 01/09/2023 Orders [place] [address] Regino Carolina MD [facility] [place] [address] Social History Tobacco Use Types Packs/Day Years [...] PM EDT Office Visit Hematology/Oncology at [address] [phone] Jeffery Sanz MD [facility] DR HEMATOLOGY [place] [address] Mary Nails APRN [address] [place] [address] DR MEDICAL ONCOLOGY [place], [place] [address] 01/01/2025 2:30 PM EDT Infusion Hematology Oncology at [address] [phone] 01/14/2025 11:00 AM EDT Laboratory Appointment Lab [place] [phone] 01/14/2025 1:[address] [place] [phone] Regino Carolina MD [facility] [place] [address] 01/14/2025 2:00 PM EDT Office Visit [place] [address] Regino Carolina MD [facility] [place] [address] documented as of this encounter Visit Diagnoses Not on filedocumented in this encounter Care Teams Information Services Consultant Relationship Specialty Start Date End Date Zeny James APRN [address] [place] [address] [address] [place] [address] PCP - General Family Medicine 09/23/19 documented as of this encounter
--- OUTSIDE RECORDS SUMMARY | 2024-05-10 14:50 | XMS_ITS | Encounter Summary ---
Author Organization [facility] Address [facility] [place] [address] Care Team Providers Care Electric Locomotive Firer/Fireman Name Role Phone Zeny James APRN Primary Care Provider Encounter Details Date Type Department Care Team (Late st Contact Info) Description 12/21/2022 1:45 PM EDT Office Visit Dermatology at [facility] [address] [place] [address] Michael Cavazos MD [facility] [place] [address] Neoplasm of unspecified behavior of bone, soft [...] this encounter Progress Notes * Dafne Calero, [facility] - 12/21/2022 1:45 PM EDT Images from [...] thinners: ASA 81mg, Vitamin E, Pravastatin 20mg, [place]-3 Pacemaker, defibrillator, deep brain stimulator, cochlear implant: No History of Present Illness: Linda Maggie is a 77 y.o. Patient returns to [...] Pathology and otherwise PRN []Note routed to clerical secretary []Recall placed in scheduling system []Appointment scheduled at checkout Scribe attestation: Dafne Calero [facility] has performed the documentation for this encounter in the presence of and acting as a scribe for MICHAEL CAVAZOS MD. I performed the above scribed service and agree with the accuracy of the documentation in this encounter. Reviewed and signed by: MICHAEL CAVAZOS MD Dermatology [facility] * Michael Cavazos MD - 12/21/2022 1:45 PM EDT BCC as expected. Needs referral to [facility], Please call patient to schedule, NCP documented in this encounter Plan of Treatment Upcoming Encounters Date Type Department Care Team (Late st Contact Info) Description 01/01/2025 2:00 PM EDT Office Visit Hematology/Oncology at [address] [phone] Jeffery Sanz MD [facility] DR [place] [address] Mary Nails APRN [address] [place] [address] DR MEDICAL ONCOLOGY [place], [place] [id number] 01/01/2025 2:30 PM EDT Infusion Hematology Oncology at [address] [phone] 01/14/2025 11:00 AM EDT Laboratory Appointment Lab [address] [place] [phone] 01/14/2025 1:[address] [place] [phone] Regino Carolina MD [facility] [place] [address] 01/14/2025 2:00 PM EDT Office Visit [place] [address] Regino Carolina MD [facility] [place] [address] documented as of this encounter Procedures Procedure Name Priority Date/Time Associated Diagnosis Comments SURGICAL PATHOLOGY REPORT Routine 12/21/2022 1:54 PM EDT SPECIMEN TO PATHOLOGY Routine 12/21/2022 1:54 PM EDT Neoplasm of unspecified behavior of bone, soft tissue, and skin documented in this encounter Results * (ABNORMAL) Surgical Pathology Report (12/21/2022 1:54 PM EDT) Final Diagnosis [id number] ? Location: [facility] The signing pathologist has [...] Bone & Soft Tissue Pathologist Performed at: ??[facility] [place]ology, [place] [address] Bleach Range Operator: Elaine Black MD, AP, ??CLIA Certificate: [id number] DISCUSSION THIS RESULT REQUIRES PHYSICIAN/A.P.P . FOLLOW [...] submitted in 1 cassette labeled A1. ??sdy(A) 12/28/2022 1:45 PM EDT [facility] SPECIMEN FROM SKIN / Unknown 12/21/2022 1:54 PM EDT 12/21/2022 1:54 PM EDT Michael Cavazos MD PATHOLOGY/CYTOLOGY O RDERABLES [facility] [place] [address] [facility] [place] [address] * Specimen to Pathology (12/21/2022 1:54 PM EDT) AP Specimen 12/21/2022 1:54 PM EDT 12/21/2022 1:54 PM EDT Narrative [facility] - 12/21/2022 1:54 PM EDT Specimen requisition ordered. ??Separate Pathology report to follow Michael Cavazos MD PATHOLOGY/CYTOLOGY O LORE Performing Organization Address City/[facility]/[place] [address] documented in this encounter Visit Diagnoses Diagnosis Neoplasm of unspecified behavior of bone, soft tissue, and skin documented in this encounter Care Teams Electric Locomotive Firer/Fireman Relationship Specialty Start Date End Date Zeny James APRN [address] [place] [address] [address] [facility] 1 [place] [address] PCP - General Family Medicine 09/23/19 documented as of this encounter
--- OUTSIDE RECORDS SUMMARY | 2024-05-10 14:50 | XMS_ITS | Encounter Summary ---
Author Organization [facility] [place] [address] Care Team Providers Care Experienced Truck Driver Name Role Phone Zeny James APRN Primary Care Provider [phone] Reason for Referral * Consultation (Routine) - Closed Specialty Diagnoses / Procedures Referred By Nir potts Referred To Contact Dermatology Diagnoses Basal cell carcinoma (BCC) of left nasal sidewall Estela Velasquez MD [facility] DR MARCUS RICHARD-[place] [address] Jayro Mack MD [facility] DR MARCUS RICHARD-[place] [address] Referral ID Status Reason Start Date Expiration Date V isits Requested Visits Authorized [id number] Closed Consult, Test & Treat 12/30/2022 12/30/2023 1 1 Encounter Details Date Type Department Care Team (Latest Contact Info) Description 12/30/2022 Transcribe Orders Dermatology at [facility] [address] [place] [phone] Estela Velasquez MD [facility] DR MARCUS RICHARD-[place] [address] Basal cell carcinoma (BCC) of [...] 2:00 PM EDT Office Visit Hematology/Oncology at [address] [phone] Jeffery Sanz MD [facility] DR HEMATOLOGY [place] [address] Mary Nails APRN [address] [place] [address] DR MEDICAL ONCOLOGY [place] [address] 01/01/2025 2:30 PM EDT Infusion Hematology Oncology at [address] [place] [address] 01/14/2025 11:00 AM EDT Laboratory Appointment Lab [address] [place] [address] 01/14/2025 1:[address] [place] [phone] Regino Carolina MD [facility] GENER[place] [address] 01/14/2025 2:00 PM EDT Office Visit [place] [phone] Regino Carolina MD [facility] GENER[place] [address] Scheduled Referrals Name Type Priority Associated Diagnoses Order Schedule Referral to Dermatology Outpatient Referral Routine Basal cell carcinoma (BCC) of left nasal sidewall Ordered: 12/30/2022 documented as of this encounter Visit Diagnoses Diagnosis Basal cell carcinoma (BCC) of left nasal sidewall documented in this encounter Care Teams Experienced Truck Driver Relationship Specialty Start Date End Date Zeny James APRN [address] [place] [address] [address] [place] [address] PCP - General Family Medicine 09/23/19 documented as of this encounter
--- OUTSIDE RECORDS SUMMARY | 2024-05-10 14:50 | XMS_ITS | Encounter Summary ---
Author Organization [facility] Address [facility] [place] [address] Care Team Providers Care Day Care Worker Name Role Phone Zeny James APRN Primary Care Provider [phone] Encounter Details Date Type Department Care Team (Late st Contact Info) Description 01/19/2023 2:00 PM EDT Office Visit Hematology/Oncology at [address] [phone] Jeffery Sanz MD [facility] [place] [address] Malignant neoplasm of left breast in female, estrogen receptor positive, unspecified site of breast; detention current use of aromatase inhibitor; Age-related osteoporosis [...] cancer Patient Active Problem List Diagnosis 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 ER-pos; SD-neg; HER2=2+. 02/06/01: R MRM/ax dissection. 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, HER2 negative PET/CT no mets 12/04, [...] PM EDT Office Visit Hematology/Oncology at [address] [phone] Jeffery Sanz MD [facility] DR HEMATOLOGY [place] [address] Mary Nails APRN [address] [place] [address] [place] [address] 01/01/2025 2:30 PM EDT Infusion Hematology Oncology at [address] [phone] 01/14/2025 11:00 AM EDT Laboratory Appointment Lab [place] [phone] 01/14/2025 1:[address] [place] [phone] Regino Carolina MD [facility] [place] [address] 01/14/2025 2:00 PM EDT Office [place] [address] Regino Carolina MD [facility] [place] [address] documented as of this encounter Visit Diagnoses Diagnosis Malignant neoplasm of left breast in female, estrogen receptor positive, unspecified site of breast 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
--- OUTSIDE RECORDS SUMMARY | 2024-05-10 14:50 | XMS_ITS | Encounter Summary ---
Author Organization [facility] Address [facility] [place] [address] Care Team Providers Care Treating Plant Operator Name Role Phone Zeny James TEMPLATE INSPECTOR Primary Care Provider Encounter Details Date Type [...] 2:00 PM EDT Office Visit Hematology/Oncology at [address] [phone] Jeffery Sanz MD [facility] DR [place] [address] Mary Nails APRN [address] [place] [address] DR MEDICAL ONCOLOGY [place], [place] [id number] 01/01/2025 2:30 PM EDT Infusion Hematology Oncology at [address] [phone] 01/14/2025 11:00 AM EDT Laboratory Appointment Lab [address] [place] [phone] 01/14/2025 1:[address] [place] [phone] Regino Carolina MD [facility] [place] [address] 01/14/2025 2:00 PM EDT Office Visit [place] [phone] Regino Carolina MD [facility] [place] [address] documented as of this encounter Visit Diagnoses Not on filedocumented in this encounter Care Teams Treating Plant Operator Relationship Specialty Start Date End Date Zeny James APRN [address] [facility] 1 [place] [address] PCP - General Family Medicine 09/23/19 documented as of this encounter
--- OUTSIDE RECORDS SUMMARY | 2024-05-10 14:50 | XMS_ITS | Encounter Summary ---
Author Organization [facility] Address [facility] [place] [address] Care Team Providers Care Funeral Director'S Assistant Name Role Phone Zeny James APRN Primary Care Provider Reason for Visit * Reason Comments Basal Cell Carcinoma Encounter Details Date Type Department Care Team (Latest Contact Info) Description 02/20/2023 10:45 AM EST Clinical Support Dermatology at [facility] [address] [place] [address] Jayro Mack MD [facility] DR MARCUS [place] [address] Basal cell carcinoma (BCC) of left nasal [...] PM EDT Office Visit Hematology/Oncology at [address] [phone] Jeffery Sanz MD [facility] DR HEMATOLOGY [place] [address] Mary Nails TRAUMA DIRECTOR [address] [place] [address] DR MEDICAL ONCOLOGY [place], [place] [id number] 01/01/2025 2:30 PM EDT Infusion Hematology Oncology at [address] [phone] 01/14/2025 11:00 AM EDT Laboratory Appointment Lab [address] [place] [phone] 01/14/2025 1:[address] [place] [phone] Regino Carolina MD [facility] [place] [address] 01/14/2025 2:00 PM EDT Office [place] [phone] Regino Carolina MD [facility] [place] [address] documented as of this encounter Visit Diagnoses Diagnosis Basal cell carcinoma (BCC) of left nasal sidewall documented in this encounter Care Teams Funeral Director'S Assistant Relationship Specialty Start Date End Date Zeny James APRN [address] [place] [address] PCP - General Family Medicine 09/23/19 documented as of this encounter
--- OUTSIDE RECORDS SUMMARY | 2024-05-10 14:50 | XMS_ITS | Encounter Summary ---
Author Organization [facility] Address [facility] [place] [address] Care Team Providers Care Creative Strategist Name Role Phone Zeny James RANGE MASTER Primary Care Provider Encounter Details Date Type [...] 2:00 PM EDT Office Visit Hematology/Oncology at [address] [phone] Jeffery Sanz MD [facility] DR HEMATOLOGY [place] [address] Mary Nails APRN [address] [place] [address] DR MEDICAL ONCOLOGY [place], [place] [id number] 01/01/2025 2:30 PM EDT Infusion Hematology Oncology at [address] [phone] 01/14/2025 11:00 AM EDT Laboratory Appointment Lab [address] [place] [phone] 01/14/2025 1:[address] [place] [phone] Regino Carolina MD [facility] [place] [address] 01/14/2025 2:00 PM EDT Office Visit [place] [phone] Regino Carolina MD [facility] [place] [address] documented as of this encounter Visit Diagnoses Not on filedocumented in this encounter Care Teams Creative Strategist Relationship Specialty Start Date End Date Zeny James APRN [address] [facility] [address] [facility] 1 [place] [address] PCP - General Family Medicine 09/23/19 documented as of this encounter
--- OUTSIDE RECORDS SUMMARY | 2024-05-10 14:50 | XMS_ITS | Encounter Summary ---
Author Organization [facility] Address [facility] [place] [address] Care Team Providers Care Machinery Erector Name Role Phone Zeny James APRN Primary Care Provider Encounter Details Date Type Department Care Team (Late st Contact Info) Description 02/07/2023 Telephone Dermatology at [facility] [address] [place] [address] Jayro Mack MD [facility] [place] [address] Social History Tobacco Use Types Packs/Day Years [...] please reach out to the patient at [phone]. documented in this encounter Plan of Treatment Upcoming Encounters Date Type Department Care Team (Late st Contact Info) Description 01/01/2025 2:00 PM EDT Office Visit Hematology/Oncology at [address] [phone] Jeffery Sanz MD [facility] [place] [address] Mary Nails APRN [address] [place] [address] [place] [address] 01/01/2025 2:30 PM EDT Infusion Hematology Oncology at [address] [phone] 01/14/2025 11:00 AM EDT Laboratory Appointment Lab [address] [place] [phone] 01/14/2025 1:[address] [place] [address] Regino Carolina MD [facility] [place] [address] 01/14/2025 2:00 PM EDT Office [place] [address] Regino Carolina MD [facility] [place] [address] documented as of this encounter Visit Diagnoses Not on filedocumented in this encounter Care Teams Machinery Erector Relationship Specialty Start Date End Date JairoZeny bentley APRN [address] [place] [address] PCP - General Family Medicine 09/23/19 documented as of this encounter
--- OUTSIDE RECORDS SUMMARY | 2024-05-10 14:50 | XMS_ITS | Encounter Summary ---
Author Organization [facility] Address [facility] [place] [address] Care Team Providers Care Talent Director Name Role Phone Zeny James DOOR CORE ASSEMBLER Primary Care Provider [phone] Reason for Visit * Reason Comments Other prolia * Treatment/Therapy Plan Authorization (Routine) - Authorized Specialty Diagnoses / Procedures Referred By Contparish t Referred To Contact Hematology and Oncology Diagnoses Malignant neoplasm of left breast in female, estrogen receptor positive, unspecified site of breast Osteopenia, unspecified location longterm current use of aromatase inhibitor Procedures TC DENOSUMAB, 1MG, INJECTION [id number] PROLIA Jeffery Sanz MD [facility] DR HEMATOLOG[place] [address] Jeffery Sanz MD [facility] DR HEMATOLOGY [place] [address] Referral ID Status Reason Start Date Expiration Date V isits Requested Visits Authorized [id number] Authorized 04/17/2022 07/06/2024 99 99 Encounter Details Date Type Department Care Team (Late st Contact Info) Description 11/10/2022 10:00 AM EDT Infusion Hematology Oncology at [address] [phone] Malignant neoplasm of left breast in female, estrogen receptor positive, unspecified site of breast; Osteopenia, unspecified location; longterm current use of aromatase inhibitor Social History [...] calcium 9.3, LFTS up per Rhona Hogan DATA PROCESSING MECHANIC ok to give REACTIONS (DESCRIPTION, TIME, INTERVENTION AND EFFECTIVENESS) none ASSESSMENT Linda Serrano was awake, alert and he tolerated treatment well. PLAN Return to clinic per routine. documented in this encounter Plan of Treatment Upcoming Encounters Date Type Department Care Team (Late st Contact Info) Description 01/01/2025 2:00 PM EDT Office Visit Hematology/Oncology at [address] [phone] Jeffery Sanz MD [facility] DR [place] [address] Mary Nails APRN [address] [place] [address] [place] [address] 01/01/2025 2:30 PM EDT Infusion Hematology Oncology at [address] [phone] 01/14/2025 11:00 AM EDT Laboratory Appointment Lab [address] [place] [phone] 01/14/2025 1:[address] [place] [phone] Regino Carolina MD [facility] [place] [address] 01/14/2025 2:00 PM EDT Office [place] [address] Regino Carolina MD [facility] [place] [address] documented as of this encounter Visit Diagnoses Diagnosis Malignant neoplasm of left breast in female, estrogen receptor positive, unspecified site of breast Osteopenia, unspecified location longterm current use of aromatase inhibitor Use of [...] Arm documented in this encounter Care Teams Talent Director Relationship Specialty Start Date End Date Zeny James APRN [address] [place] [address] PCP - General Family Medicine 09/23/19 documented as of this encounter
--- OUTSIDE RECORDS SUMMARY | 2024-05-10 14:50 | XMS_ITS | Encounter Summary ---
Author Organization [facility] Address [facility] [place] [address] Care Team Providers Care Senior Network Security Architect Name Role Phone Zeny James JESUS ALBERTO Primary Care Provider [phone] Encounter Details Date Type Department Care Team (Late st Contact Info) Description 01/09/2023 Telephone Hematology [place] [phone] Aurelia Negrete, JOSE MANUEL [facility] [place] [address] Social History Tobacco Use Types Packs/Day Years [...] 01/09/2023 11:27 AM EDT Reviewed annual post elvast[place] labs to assess for micronutrient deficiencies. Recommend [...] 2:00 PM EDT Office Visit Hematology/Oncology at [address] [phone] Jeffery Sanz MD [facility] DR HEMATOLOGY [place] [address] Mary Nails APRN [address] [place] [address] [place] [address] 01/01/2025 2:30 PM EDT Infusion Hematology Oncology at [address] [phone] 01/14/2025 11:00 AM EDT Laboratory Appointment Lab [place], [place] [address] 01/14/2025 1:[address] [place] [phone] Regino Carolina MD [facility] [place] [address] 01/14/2025 2:00 PM EDT Office Visit [place] [address] Regino Carolina MD [facility] [place] [address] documented as of this encounter Visit Diagnoses Not on filedocumented in this encounter Care Teams Senior Network Security Architect Relationship Specialty Start Date End Date Zeny JamesJESUS ALBERTO [address] [place] [address] PCP - General Family Medicine 09/23/19 documented as of this encounter
--- OUTSIDE RECORDS SUMMARY | 2024-05-10 14:50 | XMS_ITS | Encounter Summary ---
Author Organization [facility] Address [facility] [place] [address] Care Team Providers Care Mobile Battery Technician Name Role Phone Zeny James DAIRY EQUIPMENT INSTALLER Primary Care Provider Encounter Details Date Type [...] 2:00 PM EDT Office Visit Hematology/Oncology at [address] [phone] [facility] DR HEMATOLOGY [place] [address] Mary Nails APRN [address] [place] [address] DR MEDICAL ONCOLOGY [place], [place] [phone] 01/01/2025 2:30 PM EDT Infusion Hematology Oncology at [address] [phone] 01/14/2025 11:00 AM EDT Laboratory Appointment Lab [address] [place] [phone] 01/14/2025 1:[address] [place] [phone] [facility] [place] [address] 01/14/2025 2:00 PM EDT Office [place] [phone] [facility] [place] [address] documented as of this encounter Visit Diagnoses Not on filedocumented in this encounter Care Teams Mobile Battery Technician Relationship Specialty Start Date End Date Zeny James APRN [address] [facility] 1 [place] [address] PCP - General Family Medicine 09/23/19 documented as of this encounter
--- OUTSIDE RECORDS SUMMARY | 2024-05-10 14:50 | XMS_ITS | Encounter Summary ---
Author Organization [facility] Address [facility] [place] [address] Care Team Providers Care Flat Sorter Processor Name Role Phone Zeny James APRN Primary Care Provider Encounter Details Date Type Department Care Team (Late st Contact Info) Description 06/29/2023 2:00 PM EDT Office Visit Dermatology at [facility] [address] [place] [address] Michael Cavazos MD [facility] DR MARC[place] [address] Skin cancer screening; History of basal cell [...] this encounter Progress Notes * Dafne Calero, [facility] - 06/29/2023 2:00 PM EDT Images [...] thinners: ASA 81mg, Vitamin E, Pravastatin 20mg, Metz-3 Pacemaker, defibrillator, deep brain stimulator, cochlear implant: [...] N/A RTC: Pending pathology []Note routed to loan secretary []Recall placed in scheduling system []Appointment scheduled at checkout Scribe attestation: aFisal Rees RN has performed the documentation for this encounter in the presence of and acting as a scribe for MICHAEL CAVAZOS MD. I performed the above scribed service and agree with the accuracy of the documentation in this encounter. Reviewed and signed by: MICHAEL CAVAZOS MD Dermatology [facility] * Michael Cavazos MD - 06/29/2023 2:00 PM EDT BCC as expected. Needs referral to [facility], Please call patient to schedule, NCP documented in this encounter Plan of Treatment Upcoming Encounters Date Type Department Care Team (Late st Contact Info) Description 01/01/2025 2:00 PM EDT Office Visit Hematology/Oncology at [address] [phone] Jeffery Sanz MD [facility] DR HEMATOLOGY [place] [address] Mary Nails APRN [address] [place] [address] DR MEDICAL ONCOLOGY [place], [place] [id number] 01/01/2025 2:30 PM EDT Infusion Hematology Oncology at [address] [phone] 01/14/2025 11:00 AM EDT Laboratory Appointment Lab [place] [phone] 01/14/2025 1:[address] [place] [phone] Regino Carolina MD [facility] [place] [address] 01/14/2025 2:00 PM EDT Office [place] [phone] Regino Carolina MD [facility] [place] [address] documented as of this encounter Procedures Procedure Name Priority Date/Time Associated Diagnosis Comments SURGICAL PATHOLOGY REPORT Routine 06/29/2023 2:22 PM EDT SPECIMEN TO PATHOLOGY Routine 06/29/2023 2:22 PM EDT Neoplasm of unspecified behavior of bone, soft tissue, and skin documented in this encounter Results * (ABNORMAL) Surgical Pathology Report (06/29/2023 2:22 PM EDT) Final Diagnosis [id number] ? Location: [facility] The signing pathologist has (i) examined the relevant preparation(s) for the specimen(s) and (ii) rendered or confirmed the diagnosis(es). . ?Surgical Pathology DIAGNOSIS Right ??nostril, skin shave biopsy: - ??Basal cell carcinoma, superficial and early nodular patterns, present at the peripheral and deep specimen edges Electronically signed by: ?rTudy Duenas MD Verified: ??07/07/2023 14:01 ??Dermatopathol ogist Performed at: ??-[facility] Dept. of Pathology, [place] [address] Profile Shaper Operator: Elaine Black MD, FCAP, ??CLIA Certificate: [id number] DISCUSSION THIS RESULT REQUIRES PHYSICIAN/A.P.P . FOLLOW [...] submitted in 1 cassette labeled A1. ??shb(A) 07/07/2023 2:01 PM EDT [facility] SPECIMEN FROM SKIN / Unknown 06/29/2023 2:22 PM EDT 06/29/2023 2:22 PM EDT Michael Cavazos MD PATHOLOGY/[place] [address] [facility] [place] [address] * Specimen to Pathology (06/29/2023 2:22 PM EDT) AP Specimen 06/29/2023 2:22 PM EDT 06/29/2023 2:22 PM EDT Narrative [facility] - 06/29/2023 2:22 PM EDT Specimen requisition ordered. ??Separate Pathology report to follow Michael Cavazos MD PATHOLOGY/CYTOLOGY O LORE Performing Organization Address City/[facility]/ZIP Co de Phone Number [facility] [address] documented in this encounter Visit Diagnoses Diagnosis Skin cancer screening Screening for malignant neoplasm of the skin History of basal cell carcinoma (BCC) Neoplasm of unspecified behavior of bone, soft tissue, and skin documented in this encounter Care Teams Flat Sorter Processor Relationship Specialty Start Date End Date Zeny James APRN [address] [place] [address] PCP - General Family Medicine 09/23/19 documented as of this encounter
--- OUTSIDE RECORDS SUMMARY | 2024-05-10 14:50 | XMS_ITS | Encounter Summary ---
Author Organization [facility] Address [facility] [place] [address] Care Team Providers Care Bilingual Medical Receptionist Name Role Phone Zeny James APRN Primary Care Provider [phone] Encounter Details Date Type Department Care Team (Late st Contact Info) Description 11/11/2022 Orders [place] [address] Regino Carolina MD [facility] [place] [address] IPMN (intraductal papillary mucinous neoplasm) Social History [...] PM EDT Office Visit Hematology/Oncology at [address] [phone] Jeffery Sanz MD [facility] DR HEMATOLOGY [place] [address] Mary Nails APRN [address] [place] [address] [place] [address] 01/01/2025 2:30 PM EDT Infusion Hematology Oncology at [address] [phone] 01/14/2025 11:00 AM EDT Laboratory Appointment Lab [place] [phone] 01/14/2025 1:[address] [place] [phone] Regino Carolina MD [facility] [place] [address] 01/14/2025 2:00 PM EDT Office [place] [address] Regino Carolina MD [facility] [place] [address] documented as of this encounter Visit Diagnoses Diagnosis IPMN (intraductal papillary mucinous neoplasm) Neoplasm of unspecified nature of digestive system documented in this encounter Care Teams Bilingual Medical Receptionist Relationship Specialty Start Date End Date Zeny James APRN [address] [place] [address] PCP - General Family Medicine 09/23/19 documented as of this encounter
--- OUTSIDE RECORDS SUMMARY | 2024-05-10 14:51 | XMS_ITS | Encounter Summary ---
Author Organization Replaced By [facility] Address [facility] [place] [address] Care Team Providers Care Rehabilitation Assistant Name Role Phone Zeny James SUPERVISOR GEAR REPAIR Primary Care Provider Encounter Details Date Type Department Care Team (Late st Contact Info) Description 12/30/2021 11:30 AM EDT Telephone [place]ematology [place] [address] Aurelia Negrete, [facility] [place] [address] Social History Tobacco Use Types Packs/Day Years [...] EDT Brief call with Maricruz--results from post Lynn/annual labs have not resulted at this time. [...] PM EDT Office Visit Hematology/Oncology at [address] [phone] Jeffery Sanz MD [facility] DR HEMATOLOGY AND ONCOLOGY [place], [place] [phone] Mary Nails APRN [address] [place] [address] DR MEDICAL ONCOLOGY [place], [place] [address] 01/01/2025 2:30 PM EDT Infusion Hematology Oncology at [address] [place] [address] 01/14/2025 11:00 AM EDT Laboratory Appointment Lab [address] [place] [address] 01/14/2025 1:[address] [place] [phone] Regino Carolina MD [facility] [place] [place] [address] 01/14/2025 2:00 PM EDT Office [place] [address] Regino Carolina MD [facility] [place] [address] documented as of this encounter Visit Diagnoses Not on filedocumented in this encounter Care Teams Rehabilitation Assistant Relationship Specialty Start Date End Date Zeny James APRN [address] [place] [address] [address] [place] [address] PCP - General Family Medicine 09/23/19 documented as of this encounter
--- OUTSIDE RECORDS SUMMARY | 2024-05-10 14:51 | XMS_ITS | Encounter Summary ---
Author Organization [facility] Address [facility] [place] [address] Care Team Providers Care Artist Relationship Manager Name Role Phone Zeny James APRN Primary Care Provider Encounter Details Date Type Department Care Team (Late st Contact Info) Description 07/19/2022 Orders [place] [phone] Regino Carolina MD [facility] [place] [address] Social History Tobacco Use Types Packs/Day Years [...] so we will sendthe prescription to the [facility] Home Delivery/Specialty pharmacy. Pt given the phone number so shecan connect with them. Pt will call with further questions/concersn. Pt agrees with the plan. documented in this encounter Plan of Treatment Upcoming Encounters Date Type Department Care Team (Late st Contact Info) Description 01/01/2025 2:00 PM EDT Office Visit Hematology/Oncology at [address] [phone] Jeffery Sanz MD [facility] [place] [address] Mary Nails APRN [address] [place] [address] DR MEDICAL ONCOLOGY [place], [place] [address] 01/01/2025 2:30 PM EDT Infusion Hematology Oncology at [address] [address] 01/14/2025 11:00 AM EDT Laboratory Appointment Lab [address] [place] [address] 01/14/2025 1:[address] [place] [phone] Regino Carolina MD [facility] [place] [address] 01/14/2025 2:00 PM EDT Office [place] [phone] Regino Carolina MD [facility] [place] [address] documented as of this encounter Visit Diagnoses Not on filedocumented in this encounter Care Teams Artist Relationship Manager Relationship Specialty Start Date End Date Zeny James APRN [address] [place] [address] [address] [place], [place] [address] PCP - General Family Medicine 09/23/19 documented as of this encounter
--- OUTSIDE RECORDS SUMMARY | 2024-05-10 14:51 | XMS_ITS | Encounter Summary ---
[place] [address] Care Team Providers Care Industrial Order Clerk Name Role Phone Zeny James RAGMAN Primary Care Provider Reason for Visit * Reason Comments Prior Authorization Creon 24,000-76,000- 120,[address] hagan Encounter Details Date Type Department Care Team (Late st Contact Info) Description 09/08/2022 Specialty [place] [address] Yanely Moreland Social History Tobacco Use Types [...] Linda Serrano Patient : 1945 Patient Address: [address] [place] [phone] (home) Medication Name: CREON 24,000-76,000-120,000 UNIT CAPSULE,DELAYED RELEASE Medication ID: [id number] Patient Location: [facility] GEN SURGERY 4 Patient Location Comment: Medication Strength Frequency Requested: TAKE 3 CAPSULES BY MOUTH WITH BREAKFAST , 4 CAPSULES WITH LUNCH AND DINNER. TAKE 1 CAPSULE WITH SNACKS TWICE DAILY (13 CAPSULES/DAY) Qty/Day Supply: 1170/90 New Start: New to Therapy Subscriber Insurance: [employer] Subscriber Insurance Comment: Fax: Physician: DAVIAN CAROLINA Physician Comment : PA Status: PA Not Needed Insurance requirements/notes: None Copay: $4029.36 Copay assistance: Patient Assistance Referral Copay assistance comment: No PA required- $2071.36 for 90 day supply and not eligible for copay card. Spoke with patient- wants to proceed with MAP via [facility]. Sent email referral to [facility]. Yanely Moreland 09/08/22 9:30 AM * Yanely Moreland - 09/08/2022 9:23 AM EDT [facility]- Dispatcher Service Chief Assistance Referral [facility] has [...] PM EDT Office Visit Hematology/Oncology at [address] [phone] Jeffery Sanz MD [facility] DR H[place] [address] Mary Nails APRN [address] [place] [address] [place] [address] 01/01/2025 2:30 PM EDT Infusion Hematology Oncology at [address] [address] 01/14/2025 11:00 AM EDT Laboratory Appointment Lab [address] [place] [address] 01/14/2025 1:[address] [place] [phone] Davian Carolina MD [facility] [place] [address] 01/14/2025 2:00 PM EDT Office [place] [address] Davian Carolina MD [facility] [place] [address] documented as of this encounter Visit Diagnoses Not on filedocumented in this encounter Care Teams Industrial Order Clerk Relationship Specialty Start Date End Date Vasutom JESUS ALBERTO Moura [address] [facility] 1 [place] [address] PCP - General Family Medicine 09/23/19 documented as of this encounter
--- OUTSIDE RECORDS SUMMARY | 2024-05-10 14:51 | XMS_ITS | Encounter Summary ---
Author Organization [facility] Address [facility] [place] [address] Care Team Providers Care Heel Seat Pounder Name Role Phone Zeny James KINDERGARTNER Primary Care Provider Encounter Details Date Type [...] PM EDT Office Visit Hematology/Oncology at [address] [phone] Jeffery Sanz MD [facility] DR [place] [address] Mary Nails APRN [address] [place] [address] DR MEDICAL ONCOLOGY [place], [place] [id number] 01/01/2025 2:30 PM EDT Infusion Hematology Oncology at [address] [phone] 01/14/2025 11:00 AM EDT Laboratory Appointment Lab [address] [place] [phone] 01/14/2025 1:[address] [place] [phone] Regino Carolina MD [facility] [place] [address] 01/14/2025 2:00 PM EDT Office Visit [place] [phone] Regino Carolina MD [facility] [place] [address] documented as of this encounter Visit Diagnoses Not on filedocumented in this encounter Care Teams Heel Seat Pounder Relationship Specialty Start Date End Date Zeny James APRN [address] [facility] 1 [place] [address] PCP - General Family Medicine 09/23/19 documented as of this encounter
--- OUTSIDE RECORDS SUMMARY | 2024-05-10 14:51 | XMS_ITS | Encounter Summary ---
Author Organization [facility] [place] [address] Care Team Providers Care Rug Cutter Name Role Phone Zney James APRN Primary Care Provider Encounter Details Date Type Department Care Team (Late st Contact Info) Description 03/29/2021 11:30 AM EST Telephone Hematology [place] [address] [facility] [place] [address] Social History Tobacco Use Types Packs/Day Years [...] ROBOT,STEPHANIE XI @OMENTAL FLAP, INTRA-ABDOMINAL (WRVU 6.54) Brief call with Maricruz as she was heading out to see her PCP/scheduled appointment. She was able to send me missing results from post whipple per protocol nutrition labs that were due. (see scanned results). Vitamin D 30.1 ng/mL Vitamin E 14.2 mg/L Vitamin A 37.0 mcg/dL All within normal limits, Vitamin A improved from results 6 mos ago. Recommend annual post Whipple nutrition labs: Vitamin B12, A, E, D, serum ferritin, iron panel, CMP and CBC with diff. documented in this encounter Plan of Treatment Upcoming Encounters Date Type Department Care Team (Late st Contact Info) Description 01/01/2025 2:00 PM EDT Office Visit Hematology/Oncology at [address] [phone] Jeffery Sanz MD [facility] [place] [address] Mary Nails APRN [address] [place] [address] [place] [address] 01/01/2025 2:30 PM EDT Infusion Hematology Oncology at [address] [phone] 01/14/2025 11:00 AM EDT Laboratory Appointment Lab [address] [place] [phone] 01/14/2025 1:[address] [place] [phone] Regino Carolina MD [facility] [place] [address] 01/14/2025 2:00 PM EDT Office Visit [place] [address] Regino Carolina MD [facility] [place] [address] documented as of this encounter Visit Diagnoses Not on filedocumented in this encounter Care Teams Rug Cutter Relationship Specialty Start Date End Date Zeny James APRN [address] [place] [address] [address] [place] [address] PCP - General Family Medicine 09/23/19 documented as of this encounter
--- OUTSIDE RECORDS SUMMARY | 2024-05-10 14:51 | XMS_ITS | Encounter Summary ---
Author Organization [facility] Address [facility] [place] [address] Care Team Providers Care Prosthetics Lab Technician Name Role Phone Zeny James APRN Primary Care Provider Reason for Visit * Reason Comments Medication Refill Encounter Details Date Type Department Care Team (Late st Contact Info) Description 07/22/2022 Refill [place] [address] Regino Carolina MD [facility] [place] [address] Social History Tobacco Use Types Packs/Day Years [...] PM EDT Office Visit Hematology/Oncology at [address] [phone] Jeffery Sanz MD [facility] DR [place] [address] Mary Nails APRN [address] [place] [address] [place] [address] 01/01/2025 2:30 PM EDT Infusion Hematology Oncology at [address] [phone] 01/14/2025 11:00 AM EDT Laboratory Appointment Lab [place] [phone] 01/14/2025 1:[address] [place] [phone] Regino Carolina MD [facility] [place] [address] 01/14/2025 2:00 PM EDT Office [place] [address] Regino Carolina MD [facility] [place] [address] documented as of this encounter Visit Diagnoses Not on filedocumented in this encounter Care Teams Prosthetics Lab Technician Relationship Specialty Start Date End Date Zeny James APRN [address] [place] [address] [address] [place] [address] PCP - General Family Medicine 09/23/19 documented as of this encounter
--- OUTSIDE RECORDS SUMMARY | 2024-05-10 14:51 | XMS_ITS | Encounter Summary ---
Author Organization [facility] [place] [address] Care Team Providers Care Sand Slinger Operator Name Role Phone Zeny James APRN Primary Care Provider Encounter Details Date Type Department Care Team (Late Contact Info) Description 03/25/2021 Telephone [place] [phone] Melba Andersen RN Social History Tobacco Use Types Packs/Day [...] Department Care Team (Late Contact Info) Description 01/01/2025 2:00 PM EDT Office Visit Hematology/Oncology at [address] [phone] Jeffery Sanz MD [facility] DR [place] [address] Mary Nails APRN [address] [place] [address] DR MEDICAL ONCOLOGY [place], [place] [id number] 01/01/2025 2:30 PM EDT Infusion Hematology Oncology at [address] [phone] 01/14/2025 11:00 AM EDT Laboratory Appointment Lab [address] [place] [phone] 01/14/2025 1:[address] [place] [phone] Regino Carolina MD [facility] [place] [address] 01/14/2025 2:00 PM EDT Office Visit [place] [phone] Regino Carolina MD [facility] [place] [address] documented as of this encounter Visit Diagnoses Not on filedocumented in this encounter Care Teams Sand Slinger Operator Relationship Specialty Start Date End Date Zeny James APRN [address] [place] [address] [address] [place], [place] [address] PCP - General Family Medicine 09/23/19 documented as of this encounter
--- OUTSIDE RECORDS SUMMARY | 2024-05-10 14:51 | XMS_ITS | Encounter Summary ---
Author Organization [facility] Address [facility] [place] [address] Care Team Providers Care Casualty Insurance Claim Adjuster Name Role Phone Zeny James APRN Primary Care Provider Encounter Details Date Type Department Care Team (Late st Contact Info) Description 10/19/2022 [place] [phone] Maylin Dodge Social History Tobacco Use Types [...] receive her Creon at no cost through [employer] until 04/16/2023. documented in this encounter Plan of Treatment Upcoming Encounters Date Type Department Care Team (Late st Contact Info) Description 01/01/2025 2:00 PM EDT Office Visit Hematology/Oncology at [address] [phone] Jeffery Sanz MD [facility] DR [place] [address] Mary Nails APRN [address] [place] [address] [place] [address] 01/01/2025 2:30 PM EDT Infusion Hematology Oncology at [address] [address] 01/14/2025 11:00 AM EDT Laboratory Appointment Lab [place] [phone] 01/14/2025 1:[address] [place] [phone] Regino Carolina MD [facility] [place] [address] 01/14/2025 2:00 PM EDT Office Visit [place] [address] Regino Carolina MD [facility] [place] [address] documented as of this encounter Visit Diagnoses Not on filedocumented in this encounter Care Teams Casualty Insurance Claim Adjuster Relationship Specialty Start Date End Date Zeny James APRN [address] [place] [address] [address] [place] [address] PCP - General Family Medicine 09/23/19 documented as of this encounter
--- OUTSIDE RECORDS SUMMARY | 2024-05-10 14:51 | XMS_ITS | Encounter Summary ---
Author Organization [facility] Address [facility] [place] [address] Care Team Providers Care Cereal Chemist Name Role Phone Zeny James APRN Primary Care Provider Encounter Details Date Type Department Care Team (Late st Contact Info) Description 11/10/2021 Orders Only [place] [address] Regino Carolina MD [facility] [place] [address] IPMN (intraductal papillary mucinous neoplasm) (Primary Dx) [...] PM EDT Office Visit Hematology/Oncology at [address] [phone] Jeffery Sanz MD [facility] [place] [address] Mary Nails APRN [address] [place] [address] [place] [address] 01/01/2025 2:30 PM EDT Infusion Hematology Oncology at [address] [phone] 01/14/2025 11:00 AM EDT Laboratory Appointment Lab [address] [place] [phone] 01/14/2025 1:[address] [place] [phone] Regino Carolina MD [facility] [place] [address] 01/14/2025 2:00 PM EDT Office Visit [place] [address] Regino Carolina MD [facility] [place] [address] documented as of this encounter Results * (ABNORMAL) Creatinine (12/28/2021 12:23 PM EDT) Creatinine 0.53(L) 0.70 - 1.20 mg/dL [facility] Est Glomerular Filtration Rate 96 >=60 mL/min/1. 73 m?? [facility] Comment: This patient's estimated [...] Lab Regino Carolina MD CHEMISTRY ORDERABL ES [facility] [place] [address] documented in this encounter Visit Diagnoses Diagnosis IPMN (intraductal papillary mucinous neoplasm)- Primary Neoplasm of unspecified nature of digestive system documented in this encounter Care Teams Cereal Chemist Relationship Specialty Start Date End Date Zeny James APRN [address] [place] [address] PCP - General Family Medicine 09/23/19 documented as of this encounter
--- OUTSIDE RECORDS SUMMARY | 2024-05-10 14:51 | XMS_ITS | Encounter Summary ---
Author Organization [facility] Address [facility] [place] [address] Care Team Providers Care Microfilm Processor Name Role Phone Zeny James APRN Primary Care Provider Encounter Details Date Type Department Care Team (Late st Contact Info) Description 11/11/2021 1:00 PM EDT Office Visit Hematology/Oncology at [address] [phone] Jeffery Sanz MD 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 Gastroparesis K31.84 ??? Osteopenia M85.80 ??? 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 ikfdty-upuydsmt-mdeifka DR [place]) 24,000-76,000 -120,000 unit Capsule, Delayed [...] ??? Blood-Glucose Meter Mis, 1 Application by [facility].(Non-Drug; Combo Route) route 3 times daily (before meals). (Patient not taking: No sig reported), Disp: 1 each, Rfl: 0 ??? acetaminophen (Tylenol) 500 mg Tablet, Take 2 tablets by mouth every 6 hours as needed for Pain. (Patient not taking: No sig reported), Disp: , Rfl: ??? fluticasone propionate (FLONASE) 50 mcg/actuation [place], Suspension, 1 spray by Each Nare routedaily [...] or systemic recurrence. She is due for eEvent today for her osteoporosis prevention. We will go ahead and get back to her. We will see her back in 6 months for routine follow-up. [facility] with repeat CT scan of the abdomen documented in this encounter Plan of Treatment Upcoming Encounters Date Type Department Care Team (Late st Contact Info) Description 01/01/2025 2:00 PM EDT Office Visit Hematology/Oncology at [address] [phone] Jeffery Sanz MD [facility] DR [place] [address] Mary Nails APRN [address] [place] [address] [place] [address] 01/01/2025 2:30 PM EDT Infusion Hematology Oncology at [address] [phone] 01/14/2025 11:00 AM EDT Laboratory Appointment Lab 3L [place] [phone] 01/14/2025 1:[address] [place] [address] Regino Carolina MD [facility] GENERAL SURGERY [place], [place] [phone] 01/14/2025 2:00 PM EDT Office [place] [address] Regino Carolina MD [facility] GENERAL SURGERY [place], [place] [phone] documented as of this encounter Procedures Procedure Name Priority Date/Time Associated Diagnosis Comments COMPREHENSIVE METABOLIC PANEL Routine 11/11/2021 documented in this encounter Results * (ABNORMAL) Comprehensive metabolic panel (non-fasting) (11/11/2021) Blood Urea Nitrogen 19(H) Creatinine 0.6 Sodium 133(L) Potassium 4.4 Calcium 9.1 Alkaline Phosphatase 116 Aspartate Aminotransferase 69(H) Alanine Aminotransferase 82(H) Blood 11/11/2021 Historical Provider CHEMISTRY ORDERAB LES documented in this encounter Visit Diagnoses Diagnosis Osteopenia, unspecified location 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
--- OUTSIDE RECORDS SUMMARY | 2024-05-10 14:51 | XMS_ITS | Encounter Summary ---
Author Organization Pending Sale To [facility] Address [facility] [place] [address] Care Team Providers Care Correctional Nurse Name Role Phone Zeny James SPECIAL TAX AUDITOR Primary Care Provider [phone] Reason for Visit * Reason Comments Injections Prolia * Treatment/Therapy Plan Authorization (Routine) - Authorized Specialty Diagnoses / Procedures Referred By Contac t Referred To Contact Hematology and Oncology Diagnoses Malignant neoplasm of left breast in female, estrogen receptor positive, unspecified site of breast Osteopenia, unspecified location 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 Procedures TC DENOSUMAB, 1MG, INJECTION [id number] PROLIA Jeffery Sanz MD [facility] DR [place] [address] Jeffery Sanz MD [facility] DR [place] [address] Referral ID Status Reason Start Date Expiration Date V isits Requested Visits Authorized [id number] Authorized 04/17/2022 07/06/2024 99 99 Encounter Details Date Type Department Care Team (Late st Contact Info) Description 05/12/2022 1:30 PM EST Infusion Hematology Oncology at [address] [phone] Osteopenia, unspecified location; jail current use of aromatase inhibitor; Malignant neoplasm [...] PM EDT Office Visit Hematology/Oncology at [address] [phone] Jeffery Sanz MD [facility] DR [place] [address] Mary Nails, JESUS ALBERTO [address] [place] [address] DR MEDICAL ONCOLOGY [place], [place] [address] 01/01/2025 2:30 PM EDT Infusion Hematology Oncology at [address] [phone] 01/14/2025 11:00 AM EDT Laboratory Appointment Lab [address] [place] [phone] 01/14/2025 1:[address] [place] [phone] Regino Carolina MD [facility] [place] [address] 01/14/2025 2:00 PM EDT Office [place] [phone] Regino Carolina MD [facility] [place] [address] documented as of this encounter Visit Diagnoses Diagnosis Osteopenia, unspecified location jail current use of aromatase inhibitor Use of [...] Arm documented in this encounter Care Teams Correctional Nurse Relationship Specialty Start Date End Date Zeny James APRN [address] [place] [address] [address] [place] [address] PCP - General Family Medicine 09/23/19 documented as of this encounter
--- OUTSIDE RECORDS SUMMARY | 2024-05-10 14:51 | XMS_ITS | Encounter Summary ---
Author Organization [facility] Address [facility] [place] [address] Care Team Providers Care Para Operator Name Role Phone Zeny James APRN Primary Care Provider [phone] Reason for Visit * Reason Comments Skin Check Encounter Details Date Type Department Care Team (Late st Contact Info) Description 02/24/2022 1:45 PM EST Office Visit Dermatology at [facility] [address] [place] [address] Michael Cavazos MD [facility] DR MARCUS [place] [address] Solar lentigo; Multiple benign nevi; Seborrheic keratosis; [...] thinners: ASA 81mg, Vitamin E, Pravastatin 20mg, [place]os[place]-3 Pacemaker, defibrillator, deep brain stimulator, cochlear implant: [...] 1 yr for FSE []Note routed to personal secretary [x]Recall placed in scheduling system []Appointment scheduled at checkout Scribe attestation: Laura Cruz LPN has performed the documentation for this encounter in thepresence of and acting as a scribe for MICHAEL CAVAZOS MD. I performed the above scribed service and agree with the accuracy of the documentation in this encounter. Reviewed and signed by: MICHAEL CAVAZOS MD Dermatology [facility] * Michael Cavazos MD - 02/24/2022 1:45 PM EST Benign seborrheic keratosis, No need for further treatment, Call to inform Michael blanton documented in this encounter Plan of Treatment Upcoming Encounters Date Type Department Care Team (Late st Contact Info) Description 01/01/2025 2:00 PM EDT Office Visit Hematology/Oncology at [address] [phone] Jeffery Sanz MD [facility] DR HEMATOLOGY [place] [address] Mary Nails APRN [address] [place] [address] [place] [address] 01/01/2025 2:30 PM EDT Infusion Hematology Oncology at [address] [phone] 01/14/2025 11:00 AM EDT Laboratory Appointment Lab [place] [phone] 01/14/2025 1:[address] [place] [phone] Regino Carolina MD [facility] [place] [address] 01/14/2025 2:00 PM EDT Office [place] [phone] Regino Carolina MD [facility] [place] [address] documented as of this encounter Procedures Procedure Name Priority Date/Time Associated Diagnosis Comments SURGICAL PATHOLOGY REPORT Routine 02/24/2022 1:37 PM EST SPECIMEN TO PATHOLOGY Routine 02/24/2022 1:37 PM EST Neoplasm of unspecified behavior of bone, soft tissue, and skin documented in this encounter Results * Surgical Pathology Report (02/24/2022 1:37 PM EST) Final Diagnosis [id number] ? Location: [facility] The signing pathologist has (i) examined the relevant preparation(s) for the specimen(s) and (ii) rendered or confirmed the diagnosis(es). . ?Surgical Pathology DIAGNOSIS Left medial superior calf, skin shave biopsy: - ??Verrucous keratosis, irritated, specimen edges are free of lesion on the available planes of sectioning examined Electronically signed by: ?Larry Rivera MD Verified: ??03/03/2022 15:15 ??Dermatopathol ogist Performed at: ??-[facility] [place], [place] [address] Senior Principal: Elaine Black MD, FCAP, ??CLIA Certificate: [id number] ADDITIONAL STUDIES Multiple step-leveled sections are examined. [...] submitted in 1 cassette labeled A1. ??shb 03/03/2022 3:15 PM EST [facility] SPECIMEN FROM SKIN / Unknown 02/24/2022 1:37 PM EST 02/24/2022 1:37 PM EST Michael Cavazos MD PATHOLOGY/CYTOLOGY [place] [place] [id number] * Specimen to Pathology (02/24/2022 1:37 PM EST) AP Specimen 02/24/2022 1:37 PM EST 02/24/2022 1:37 PM EST Narrative [facility] - 02/24/2022 1:37 PM EST Specimen requisition ordered. ??Separate Pathology report to follow Michael Cavazos MD PATHOLOGY/CYTOLOGY [place] [place] [address] documented in this encounter Visit Diagnoses Diagnosis Solar lentigo Other dyschromia Multiple benign nevi Benign neoplasm of skin, site unspecified Seborrheic keratosis Other seborrheic keratosis Reyes angioma Nevus, non-neoplastic History of basal cell carcinoma Personal history of other malignant neoplasm of skin Neoplasm of unspecified behavior of bone, soft tissue, and skin documented in this encounter Care Teams Para Operator Relationship Specialty Start Date End Date Zeny James, JESUS ALBERTO [address] [place] [address] PCP - General Family Medicine 09/23/19 documented as of this encounter
--- OUTSIDE RECORDS SUMMARY | 2024-05-10 14:51 | XMS_ITS | Encounter Summary ---
Author Organization [facility] Address [facility] [place] [address] Care Team Providers Care Aircraft Powertrain Repairer Name Role Phone ErikaZaydaZenynataliia GRANDA Primary Care Provider [phone] Reason for Visit * Consultation (Routine) - Closed Specialty Diagnoses / Procedures Referred By Nir potts Referred To Contact Hematology and Oncology Diagnoses Malignant neoplasm of upper-outer quadrant of left breast in female, estrogen receptor positive Roosevelt Dueñas MD [facility] DR HEMATOLOGY/[place] [address] St Hem Onc Office [address] [place] [phone] Referral ID Status Reason Start Date Expiration Date V isits Requested Visits Authorized [id number] Closed Consult, Test & Treat 04/01/2021 04/01/2022 1 1 Encounter Details Date Type Department Care Team (Late st Contact Info) Description 04/29/2021 1:00 PM EST Office Visit Hematology/Oncology at [address] [phone] Jeffery Sanz MD [facility] DR [place] [address] Sabrina Hunter APRN [address] [place] [address] [place] [address] Malignant neoplasm of upper-outer quadrant of left breast in female, estrogen receptor positive; Osteopenia, unspecified location; [facility] current use of aromatase inhibitor Social History [...] meeting for the first time in the [facility]. She has a recent left breast cancer and a remote right breast cancer. Previously she was followed by Dr. Dueñas who is leaving [facility]. Left breast cancer 12/04 mammogram detected [...] 12/01/2020), Disp: 90 capsule, Rfl: 1 ??? wgjyyn-aprajicr-zdespar DR ([place]) 24,000-76,000 -120,000 unit Capsule, Delayed [...] 60 tablet, Rfl: 11 ??? Blood-Glucose Meter [facility], 1 Application by [facility].(Non-Drug; Combo Route) route 3 times [...] Rfl: ??? fluticasone propionate (FLONASE) 50 mcg/actuation [place], Suspension, 1 spray by Each Nare routedaily [...] 2:00 PM EDT Office Visit Hematology/Oncology at [address] [phone] Jeffery Sanz MD [facility] DR [place] [address] Mary Nails APRN [address] [place] [address] [place] [address] 01/01/2025 2:30 PM EDT Infusion Hematology Oncology at [address] [phone] 01/14/2025 11:00 AM EDT Laboratory Appointment Lab 3[address] [place] [phone] 01/14/2025 1:[address] [place] [phone] Regino Carolina MD [facility] [address] 01/14/2025 2:00 PM EDT Office [place] [address] Regino Carolina MD 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
--- OUTSIDE RECORDS SUMMARY | 2024-05-10 14:51 | XMS_ITS | Encounter Summary ---
Author Organization [facility] Address [facility] [place] [address] Care Team Providers Care Grid Molder Name Role Phone Zeny James APRN Primary Care Provider Encounter Details Date Type Department Care Team (Late st Contact Info) Description 05/12/2022 1:00 PM EST Office Visit Hematology/Oncology at [address] [phone] Jeffery Sanz MD [facility] [place] [address] Malignant neoplasm of upper-outer quadrant of left breast in female, estrogen receptor positive; Osteopenia, unspecified location; [facility] current use of [...] female that I am seeing in the [facility]. 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 Those [...] ??? Gastroparesis K31.84 ??? Osteopenia M85.80 ??? 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 anastrozole (Arimidex) 1 mg Tablet, TAKE 1 TABLET BY MOUTH DAILY, Disp: 90 tablet, Rfl: 3 ??? denosumab (PROLIA SUBQ), Inject subcutaneously Q6 Months., Disp: , Rfl: ??? clfllq-wmazipup-qickfkn DR [place]) 24,000-76,000 -120,000 unit Capsule, Delayed [...] mouth daily., Disp: ,Rfl: ??? Blood-Glucose Meter Misc, 1 Application by [facility].(Non-Drug; Combo Route) route 3 times daily (before [...] Rfl: ??? fluticasone propionate (FLONASE) 50 mcg/actuation [place], Suspension, 1 spray by Each Nare routedaily [...] follow-up with her GI surgery team at [facility] in November with repeat CT scan of [...] PM EDT Office Visit Hematology/Oncology at [address] [phone] Jeffery Sanz MD [facility] [place] [address] Mary Nails APRN [address] [place] [address] [place] [address] 01/01/2025 2:30 PM EDT Infusion Hematology Oncology at [address] [phone] 01/14/2025 11:00 AM EDT Laboratory Appointment Lab [address] [place] [phone] 01/14/2025 1:[address] [place] [phone] Regino Carolina MD [facility] [place] [address] 01/14/2025 2:00 PM EDT Office [place] [phone] Regino Carolina MD [facility] GENERAL SURGERY [place], [place] [phone] documented as of this encounter Procedures Procedure Name Priority Date/Time Associated Diagnosis Comments COMPREHENSIVE METABOLIC PANEL Routine 05/12/2022 documented in this encounter Results * Comprehensive metabolic panel (non-fasting) (05/12/2022) Creatinine 0.7 Alkaline Phosphatase 199 Aspartate Aminotransferase 107 Alanine Aminotransferase 119 Blood Historical Provider CHEMISTRY ORDERAB LES documented in this encounter Visit Diagnoses Diagnosis Malignant neoplasm of upper-outer quadrant of left breast in female, estrogen receptor positive Osteopenia, unspecified location [facility] current use of aromatase inhibitor Use of aromatase inhibitors documented in this encounter Care Teams Grid Molder Relationship Specialty Start Date End Date Zeny James APRN [address] [place] [address] PCP - General Family Medicine 09/23/19 documented as of this encounter
--- OUTSIDE RECORDS SUMMARY | 2024-05-10 14:51 | XMS_ITS | Encounter Summary ---
Author Organization [facility] Address [facility] [place] [address] Care Team Providers Care Lay Out And Detail Drafter Name Role Phone Zeny James APRN Primary Care Provider Reason for Visit * Reason Comments Medication Refill Encounter Details Date Type Department Care Team (Late st Contact Info) Description 03/04/2022 Refill Hematology/Oncology at [address] [phone] Jeffery Sanz MD [facility] HEMATOLOGY [place] [address] Malignant neoplasm of upper-outer quadrant of left [...] PM EDT Office Visit Hematology/Oncology at [address] [phone] Jeffery Sanz MD [facility] HEMATOLOGY [place] [address] Mary Nails APRN [address] [place] [address] DR MEDICAL ONCOLOGY [place], [place] [address] 01/01/2025 2:30 PM EDT Infusion Hematology Oncology at [address] [phone] 01/14/2025 11:00 AM EDT Laboratory Appointment Lab 3[place] [phone] 01/14/2025 1:[address] [place] [phone] Regino Carolina MD [facility] [place] [address] 01/14/2025 2:00 PM EDT Office Visit [place] [address] Regino Carolina MD [facility] [place] [address] documented as of this encounter Visit Diagnoses Diagnosis Malignant neoplasm of upper-outer quadrant of left breast in female, estrogen receptor positive documented in this encounter Care Teams Lay Out And Detail Drafter Relationship Specialty Start Date End Date Delaney JamesJESUS ALBERTO norigea [address] [place] [address] PCP - General Family Medicine 09/23/19 documented as of this encounter
--- OUTSIDE RECORDS SUMMARY | 2024-05-10 14:51 | XMS_ITS | Encounter Summary ---
Author Organization [facility] Address [facility] [place] [address] Care Team Providers Care Fork Lift Mechanic Name Role Phone Zeny James APRN Primary Care Provider Encounter Details Date Type Department Care Team (Late st Contact Info) Description 09/07/2021 Orders [place] [address] Regino Carolina MD [facility] [place] [address] Social History Tobacco Use Types Packs/Day Years [...] PM EDT Office Visit Hematology/Oncology at [address] [phone] Jeffery Sanz MD [facility] DR HEMATOLOGY [place] [address] Mary Naisl APRN [address] [place] [address] DR MEDICAL ONCOLOGY [place], [place] [address] 01/01/2025 2:30 PM EDT Infusion Hematology Oncology at [address] [phone] 01/14/2025 11:00 AM EDT Laboratory Appointment Lab [address] [phone] 01/14/2025 1:[address] [place] [phone] Regino Carolina MD [facility] [place] [address] 01/14/2025 2:00 PM EDT Office Visit [place] [address] Regino Carolina MD [facility] [place] [address] documented as of this encounter Visit Diagnoses Not on filedocumented in this encounter Care Teams Fork Lift Mechanic Relationship Specialty Start Date End Date Zeny James APRN [address] [place] [address] [address] [place] [address] PCP - General Family Medicine 09/23/19 documented as of this encounter
--- OUTSIDE RECORDS SUMMARY | 2024-05-10 14:51 | XMS_ITS | Encounter Summary ---
[place] [address] Care Team Providers Care Trumpet Teacher Name Role Phone Zeny James APRN Primary Care Provider Reason for Referral * Diagnostic Test (Routine) - Closed Specialty Diagnoses / Procedures Referred By Contac t Referred To Contact Radiology Diagnoses IPMN (intraductal papillary mucinous neoplasm) Procedures CT Abdomen w Contrast Regino Carolina MD [facility] [place] [address] [facility] [place] [address] Referral ID Status Reason Start Date Expiration Date V isits Requested Visits Authorized [id number] Closed Specialty Service Requested 12/01/2020 06/03/2022 1 1 Reason for Visit * Diagnostic Test (Routine) - Closed Specialty Diagnoses / Procedures Referred By Contac t Referred To Contact Radiology Diagnoses IPMN (intraductal papillary mucinous neoplasm) Procedures CT Abdomen w Contrast Regino Carolina MD [facility] [place] [address] [facility] [place] [address] Referral ID Status Reason Start Date Expiration Date V isits Requested Visits Authorized [id number] Closed Specialty Service Requested 12/01/2020 06/03/2022 1 1 Encounter Details Date Type Department Care Team (Late st Contact Info) Description 12/28/2021 12:35 PM EDT - 12/28/2021 11:59 PM EDT Hospital Encounter CT Scan at [facility], [place] [address] Regino Carolina MD [facility] [place] [address] IPMN (intraductal papillary mucinous neoplasm) Discharge Disposition: [...] daily. Blood-Glucose Meter Misc 1 Application by [place].(Non-Drug; Combo Route) route 3 times daily (before [...] (E.C.) Take 81 mg by mouth daily. vgmfrx-eknntqcf-ji ylradha [place]) 24,000-76,000 -120,000 unit Capsule, Delayed [...] daily. 01/19/2023 fluticasone propionate (FLONASE) 50 mcg/actuation [place], Suspension 1 spray by Each Nare route daily as needed. 3 documented as of this encounter Plan of Treatment Upcoming Encounters Date Type Department Care Team (Late st Contact Info) Description 01/01/2025 2:00 PM EDT Office Visit Hematology/Oncology at [address] [phone] Jeffery Sanz MD [facility] DR [place] [address] Mary Nails APRN [address] [place] [address] DR MEDICAL ONCOLOGY [place], [place] [id number] 01/01/2025 2:30 PM EDT Infusion Hematology Oncology at [address] [phone] 01/14/2025 11:00 AM EDT Laboratory Appointment Lab [place] [phone] 01/14/2025 1:[address] [place] [phone] Regino Carolina MD [facility] [place] [place] [address] 01/14/2025 2:00 PM EDT Office [place] [phone] Regino Carolina MD [facility] [place] [place] [address] documented as of this encounter Procedures Procedure [...] who have questions please contact the health professional healthcare representative that requested your imaging first. ? Electronically signed by: Mike Saunders MD, [facility] ([phone]), at 12/28/2021 3:15 PM Narrative 12/28/2021 3:15 [...] patients who have questions please contactthe health professional healthcare representative that requested your imaging first. Regino Carolina [...] Intravenous, ONCE PRN, 1 dose, Starting on Mon12/28/21 at 1439, Until Mon12/28/21 at 1439, Per Protocol, Warning Vesicant/Irritant Medication , Radiology Contrast, Routine Given 12/28/2021 2:39 PM EDT 80 mLs documented in this encounter Care Teams Trumpet Teacher Relationship Specialty Start Date End Date Zeny James APRN [address] [place] [address] PCP - General Family Medicine 09/23/19 documented as of this encounter
--- OUTSIDE RECORDS SUMMARY | 2024-05-10 14:51 | XMS_ITS | Encounter Summary ---
Author Organization [facility] [place] [address] Care Team Providers Care Harness Inspector Name Role Phone Zeny James APRN Primary Care Provider Encounter Details Date Type Department Care Team (Late Contact Info) Description 01/27/2021 Telephone [place] [phone] Kacy Winter Social History Tobacco Use Types [...] PM EDT Office Visit Hematology/Oncology at [address] [phone] Jeffery Sanz MD [facility] DR [place] [address] Mary Nails APRN [address] [place] [address] DR MEDICAL ONCOLOGY [place], [place] [address] 01/01/2025 2:30 PM EDT Infusion Hematology Oncology at [address] [phone] 01/14/2025 11:00 AM EDT Laboratory Appointment Lab [address] [place] [phone] 01/14/2025 1:[address] [place] [phone] Regino Carolina MD [facility] [place] [address] 01/14/2025 2:00 PM EDT Office Visit [place] [phone] Regino Carolina MD [facility] [place] [address] documented as of this encounter Visit Diagnoses Not on filedocumented in this encounter Care Teams Harness Inspector Relationship Specialty Start Date End Date Zeny James APRN [address] [place] [address] [address] [place] [address] PCP - General Family Medicine 09/23/19 documented as of this encounter
--- OUTSIDE RECORDS SUMMARY | 2024-05-10 14:51 | XMS_ITS | Encounter Summary ---
Author Organization [facility] Address [facility] [place] [address] Care Team Providers Care Anhydrous Ammonia Production Supervisor Name Role Phone Zeny James APRN Primary Care Provider Encounter Details Date Type Department Care Team (Late st Contact Info) Description 09/08/2022 Orders [place] [address] Regino Carolina MD [facility] [place] [address] Social History Tobacco Use Types Packs/Day Years [...] 2:00 PM EDT Office Visit Hematology/Oncology at [address] [phone] Jeffery Sanz MD [facility] DR [place] [address] Mary Nails APRN [address] [place] [address] DR MEDICAL ONCOLOGY [place], [place] [address] 01/01/2025 2:30 PM EDT Infusion Hematology Oncology at [address] [phone] 01/14/2025 11:00 AM EDT Laboratory Appointment Lab [place] [phone] 01/14/2025 1:[address] [place] [phone] Regino Carolina MD [facility] [place] [address] 01/14/2025 2:00 PM EDT Office [place] [address] Regino Carolina MD [facility] [place] [address] documented as of this encounter Visit Diagnoses Not on filedocumented in this encounter Care Teams Anhydrous Ammonia Production Supervisor Relationship Specialty Start Date End Date Zeny James APRN [address] [place] [address] [address] [place] [address] PCP - General Family Medicine 09/23/19 documented as of this encounter
--- OUTSIDE RECORDS SUMMARY | 2024-05-10 14:51 | XMS_ITS | Encounter Summary ---
Author Organization [facility] Address [facility] [place] [address] Care Team Providers Care Delicate Fabrics Presser Name Role Phone Zeny James DRY PAN FEEDER Primary Care Provider Encounter Details Date Type Department Care Team (Late st Contact Info) Description 01/18/2021 Telephone Hematology [place] [phone] Aurelia Negrete, RD [facility] [place] [address] Social History Tobacco Use Types Packs/Day Years [...] Miscellaneous Notes * Telephone Encounter - Aurelia Negrete, RD - 01/18/2021 3:41 PM EDT Called [...] PM EDT Office Visit Hematology/Oncology at [address] [phone] Jeffery Sanz MD [facility] DR [place] [address] Mary Nails APRN [address] [place] [address] DR MEDICAL ONCOLOGY [place], [place] [id number] 01/01/2025 2:30 PM EDT Infusion Hematology Oncology at [address] [phone] 01/14/2025 11:00 AM EDT Laboratory Appointment Lab [place] [phone] 01/14/2025 1:[address] [place] [phone] Regino Carolina MD [facility] [place] [address] 01/14/2025 2:00 PM EDT Office Visit [place] [phone] Regino Carolina MD [facility] [place] [address] documented as of this encounter Visit Diagnoses Not on filedocumented in this encounter Care Teams Delicate Fabrics Presser Relationship Specialty Start Date End Date Zeny James APRN [address] [place] [address] PCP - General Family Medicine 09/23/19 documented as of this encounter
--- OUTSIDE RECORDS SUMMARY | 2024-05-10 14:51 | XMS_ITS | Encounter Summary ---
Author Organization [facility] [place] [address] Care Team Providers Care Boom Master Name Role Phone Zeny James APRN Primary Care Provider Reason for Visit * Reason Onset Date Comments Follow-up 07/28/2022 Bra Fitting Encounter Details Date Type Department Care Team (Late st Contact Info) Description 07/28/2022 Telephone Hematology Oncology at [address] [phone] Thuy Scott, RN Follow-up (Bra [...] for bra fitting sent to [facility] by membership secretary. She called patient to notify her. [...] 07/20/2022 12:55 PM EDT To: Thuy Scott, [place] Subject: FW: Prosthetic Bra Hey do you know if [facility] is doing fittings? If you don't I'll call but will need a referral for the fitting either way ----- Message ----- From: Ofelia Aj Sent: 07/20/2022 12:51 PM EDT To: [facility] Hem Onc Nurse Subject: Prosthetic Bra Maricruz [...] PM EDT Office Visit Hematology/Oncology at [address] [phone] Jeffery Sanz MD [facility] DR HEMATOLOGY [place] [address] Mary Nails APRN [address] [place] [address] DR MEDICAL ONCOLOGY [place], [place] [address] 01/01/2025 2:30 PM EDT Infusion Hematology Oncology at [address] [phone] 01/14/2025 11:00 AM EDT Laboratory Appointment Lab [address] [place] [phone] 01/14/2025 1:[address] [place] [phone] Regino Carolina MD [facility] DR [place] [address] 01/14/2025 2:00 PM EDT Office [place] [address] Regino Carolina MD [facility] [place] [address] documented as of this encounter Visit Diagnoses Not on filedocumented in this encounter Care Teams Boom Master Relationship Specialty Start Date End Date Zeny James APRN [address] [place] [address] [address] [facility] 1 [place] [address] PCP - General Family Medicine 09/23/19 documented as of this encounter
--- OUTSIDE RECORDS SUMMARY | 2024-05-10 14:51 | XMS_ITS | Encounter Summary ---
Author Organization [facility] Address [facility] [place] [address] Care Team Providers Care Aquatic Facility Manager Name Role Phone Zeny James APRN Primary Care Provider Encounter Details Date Type Department Care Team (Late st Contact Info) Description 09/08/2021 Orders [place] [address] Regino Carolina MD [facility] [place] [address] History of pancreatectomy; Exocrine pancreatic insufficiency; Iron [...] PM EDT Office Visit Hematology/Oncology at [address] [phone] Jeffery Sanz MD [facility] H[place] [address] Mary Nails APRN [address] [place] [address] DR MEDICAL ONCOLOGY [place], [place] [address] 01/01/2025 2:30 PM EDT Infusion Hematology Oncology at [address] [phone] 01/14/2025 11:00 AM EDT Laboratory Appointment Lab [place] [phone] 01/14/2025 1:[address] [place] [phone] Regino Carolina MD [facility] [place] [address] 01/14/2025 2:00 PM EDT Office [place] [address] Regino Carolina MD [facility] [place] [address] documented as of this encounter Results * Vitamin E (12/28/2021 12:23 PM EDT) [facility] Vitamin E 14.5 5.5 - 17.0 mg/L [facility] Comment: ADDITIONAL INFORMATION This test was developed and its performance characteristics determined by [facility] in a manner consistent with CLIA requirements. This test has not been cleared or approved by the U.S. Food and Drug Administration. Test Performed by: [place] [address] Road Monkey: Denzel Angel M.D. Ph.D.; CLIA# [id number] Blood 12/28/2021 12:2 3 PM EDT 12/28/2021 1:56 PM EDT Narrative Resulting Agency Comment Spec In Lab Regino Carolina MD LAB SEND OUT ORDER MAGAN [facility] [place] [address] * Vitamin D, 25-Hydroxy (12/28/2021 12:23 PM EDT) Vitamin D Total 25 OH 32 21 - 100 ng/mL [facility] Vit D Interp Sufficient [facility] Blood 12/28/2021 12:2 3 PM EDT 12/28/2021 12:26 PM EDT Narrative Resulting Agency Comment Spec In Lab Regino Carolina MD CHEMISTRY ORDERABL ES Performing Organization Address City/[facility]/ZIP Co de Phone Number [facility] [place] [address] * Vitamin B12 (12/28/2021 12:23 PM EDT) Vitamin B12 748 232 - 1,245 pg/mL [facility] Blood 12/28/2021 12:2 3 PM EDT 12/28/2021 12:26 PM EDT Narrative Resulting Agency Comment Spec In Lab Regino Carolina MD CHEMISTRY ORDERABL ES Performing Organization Address [facility] Co de Phone Number [facility] [place] [address] * Vitamin A (12/28/2021 12:23 PM EDT) [facility] Vitamin A (AUGUST) 41.4 32.5 - 78.0 mcg/dL [facility] Comment: ADDITIONAL INFORMATION This test was developed and its performance characteristics determined by [facility] in a manner consistent with CLIA requirements. This test has not been cleared or approved by the U.S. Food and Drug Administration. Test Performed by: [facility] - [address] [address] Road Monkey: Denzel Angel M.D. Ph.D.; CLIA# [id number] Blood 12/28/2021 12:2 3 PM EDT 12/28/2021 1:56 PM EDT Narrative Resulting Agency Comment Spec In Lab Regino Carolina MD LAB SEND OUT ORDER MAGAN Performing Organization Address [facility]/ZIP Co de Phone Number [facility] [place] [address] * (ABNORMAL) Iron and TIBC (12/28/2021 12:23 PM EDT) [facility] Signature Iron 200(H) 30 - 150 mcg/dL [facility] TIBC 351 250 - 450 mcg/dL [facility] Iron Saturation 57(H) 20 - 50 % [facility] Blood 12/28/2021 12:2 3 PM EDT 12/28/2021 12:26 PM EDT Narrative Resulting Agency Comment Spec In Lab Regino Carolina MD CHEMISTRY ORDERABL ES Performing Organization Address [facility]/ZIP Co de Phone Number [facility] [place] [address] * Ferritin (12/28/2021 12:23 PM EDT) [facility] Signature Ferritin 38 30 - 400 ng/mL [facility] Comment: Pediatric reference ranges not verified at [facility], interpret with caution. Reference ranges for females greater than 50 years of age approach values for men, i.e., 30-400 ng/mL. Blood 12/28/2021 12:2 3 PM EDT 12/28/2021 12:26 PM EDT Narrative Resulting Agency Comment Spec In Lab Regino Carolina MD CHEMISTRY ORDERABL ES Performing Organization Address [facility]/ZIP Co de Phone Number [facility] [place] [address] documented in this encounter Visit Diagnoses Diagnosis History of pancreatectomy Exocrine pancreatic insufficiency Other specified disease of pancreas Iron deficiency anemia secondary to inadequate dietary iron intake Vitamin B12 deficiency Other B-complex deficiencies Vitamin D deficiency Unspecified vitamin D deficiency documented in this encounter Care Teams Aquatic Facility Manager Relationship Specialty Start Date End Date Zeny James APRN [address] [place] [address] PCP - General Family Medicine 09/23/19 documented as of this encounter
--- OUTSIDE RECORDS SUMMARY | 2024-05-10 14:51 | XMS_ITS | Encounter Summary ---
Author Organization [facility] [place] [address] Care Team Providers Care Physical Testing Supervisor Name Role Phone Zeny James BALANCE AND HAIRSPRING ASSEMBLER Primary Care Provider Reason for Referral * Consultation (Routine) - Closed Specialty Diagnoses / Procedures Referred By Nir potts Referred To Contact Hematology and Oncology Diagnoses Malignant neoplasm of upper-outer quadrant of left breast in female, estrogen receptor positive Roosevelt Dueñas MD [facility] DR HEMATOLOGY/[place] [address] [facility] Hem Onc Office [address] [place] [phone] Referral ID Status Reason Start Date Expiration Date V isits Requested Visits Authorized [id number] Closed Consult, Test & Treat 04/01/2021 04/01/2022 1 1 Encounter Details Date Type Department Care Team (Late st Contact Info) Description 04/01/2021 Orders Only H[place]ology [place] [address] Roosevelt Dueñas MD Malignant neoplasm of upper-outer quadrant of left [...] 2:00 PM EDT Office Visit Hematology/Oncology at [address] [phone] Jeffery Sanz MD [facility] DR [place] [address] Mary Nails APRN [address] [place] [address] DR MEDICAL ONCOLOGY [place], [place] [address] 01/01/2025 2:30 PM EDT Infusion Hematology Oncology at [address] [phone] 01/14/2025 11:00 AM EDT Laboratory Appointment Lab [address] [place] [phone] 01/14/2025 1:[address] [place] [phone] Regino Carolina MD [facility] [place] [address] 01/14/2025 2:00 PM EDT Office [place] [address] Regino Carolina MD [facility] [place] [address] Scheduled Referrals Name Type Priority Associated Diagnoses Order Schedule Referral to Hematology and Oncology Outpatient Referral Routine Malignant neoplasm of upper-outer quadrant of left breast in female, estrogen receptor positive Ordered: 04/01/2021 documented as of this encounter Visit Diagnoses Diagnosis Malignant neoplasm of upper-outer quadrant of left breast in female, estrogen receptor positive documented in this encounter Care Teams Physical Testing Supervisor Relationship Specialty Start Date End Date Zeny James APRN [address] [place] [address] [address] [place] [address] PCP - General Family Medicine 09/23/19 documented as of this encounter
--- OUTSIDE RECORDS SUMMARY | 2024-05-10 14:51 | XMS_ITS | Encounter Summary ---
Author Organization [facility] Address [facility] [place] [address] Care Team Providers Care Metal Bonding Press Operator Name Role Phone Zeny James JESUS ALBERTO Primary Care Provider Encounter Details Date Type Department Care Team (Late st Contact Info) Description 09/08/2021 Telephone Hematology [place] [phone] Aurelia Negrete, JOSE MANUEL [facility] [place] [address] Social History Tobacco Use Types Packs/Day Years [...] she sees Dr Sanz in October at [facility]. States that she is feeling well--weight is at 103 pounds, stable. Moving bowels 2-3 times in the morning. Frequently loose, in midst of bfast or following bfast. Creon 24: Dosing 3 with bfast (light and lively yogurt, 1/2 cup of blueberries, 2 T jessica seeds and flax seed, granola) and 4 with lunch and dinner and [address]. [address] Sanz at [facility] - November 11/could I coordinate [...] PM EDT Office Visit Hematology/Oncology at [address] [phone] Jeffery Sanz MD [facility] DR HEMATOLOGY [place] [address] Mary Nails, HEATING AND AIR CONDITIONING MECHANIC [address] [place] [address] DR MEDICAL ONCOLOGY [place], [place] [id number] 01/01/2025 2:30 PM EDT Infusion Hematology Oncology at [address] [phone] 01/14/2025 11:00 AM EDT Laboratory Appointment Lab [address] [place] [phone] 01/14/2025 1:[address] [place] [phone] Regino Carolina MD [facility] [place] [address] 01/14/2025 2:00 PM EDT Office [place] [address] Regino Carolina MD [facility] [place] [address] documented as of this encounter Visit Diagnoses Not on filedocumented in this encounter Care Teams Metal Bonding Press Operator Relationship Specialty Start Date End Date Zeny JmaesJESUS ALBERTO [address] [place] [address] PCP - General Family Medicine 09/23/19 documented as of this encounter
--- OUTSIDE RECORDS SUMMARY | 2024-05-10 14:51 | XMS_ITS | Encounter Summary ---
Author Organization [facility] Address 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 Procedures TC DENOSUMAB, 1MG, INJECTION [id number] PROLIA Jeffery Sanz MD [facility] DR [place] [address] Jeffery Sanz MD [facility] DR [place] [address] Referral ID Status Reason Start Date Expiration Date V isits Requested Visits Authorized [id number] Authorized 04/17/2022 07/06/2024 99 99 Encounter Details Date Type Department Care Team (Late st Contact Info) Description 05/13/2021 12:00 PM EST Infusion Hematology Oncology at [address] [phone] Osteopenia, unspecified location; 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; Malignant neoplasm [...] in this encounter Progress Notes * Britt Carlin, RN - 05/13/2021 12:00 PM EST Infusion [...] 2:00 PM EDT Office Visit Hematology/Oncology at [address] [phone] Jeffery Sanz MD [facility] [place] [address] Mary Nails APRN [address] [place] [address] DR MEDICAL ONCOLOGY [place], [place] [id number] 01/01/2025 2:30 PM EDT Infusion Hematology Oncology at [address] [phone] 01/14/2025 11:00 AM EDT Laboratory Appointment Lab [place] [phone] 01/14/2025 1:[address] [place] [phone] Regino Carolina MD [facility] [place] [address] 01/14/2025 2:00 PM EDT Office [place] [phone] Region Carolina MD [facility] [address] documented as of this encounter Visit Diagnoses Diagnosis 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
--- OUTSIDE RECORDS SUMMARY | 2024-05-10 14:51 | XMS_ITS | Encounter Summary ---
Author Organization [facility] Address [facility] [place] [address] Care Team Providers Care Torpedoman'S Mate Name Role Phone Zeny James APRN Primary Care Provider Encounter Details Date Type Department Care Team (Late st Contact Info) Description 09/20/2022 [place] [phone] Maylin Dodge Social History Tobacco Use Types [...] the application for assistance with [employer] to [employer]. I will follow through once the pre owned sales manager program makes a decision. documented in this encounter Plan of Treatment Upcoming Encounters Date Type Department Care Team (Late st Contact Info) Description 01/01/2025 2:00 PM EDT Office Visit Hematology/Oncology at [address] [phone] Jeffery Sanz MD [facility] DR [place] [address] Mary Nails APRN [address] [place] [address] [place] [address] 01/01/2025 2:30 PM EDT Infusion Hematology Oncology at [address] [address] 01/14/2025 11:00 AM EDT Laboratory Appointment Lab [place] [phone] 01/14/2025 1:[address] [place] [phone] Regino Carolina MD [facility] [place] [address] 01/14/2025 2:00 PM EDT Office Visit [place] [address] Regino Carolina MD [facility] [place] [address] documented as of this encounter Visit Diagnoses Not on filedocumented in this encounter Care Teams Torpedoman'S Mate Relationship Specialty Start Date End Date Zeny James APRN [address] [place] [address] [address] [place] [address] PCP - General Family Medicine 09/23/19 documented as of this encounter
--- OUTSIDE RECORDS SUMMARY | 2024-05-10 14:51 | XMS_ITS | Encounter Summary ---
[place] [address] Care Team Providers Care Internal Grinder Tender Name Role Phone Zeny James APRN Primary Care Provider Reason for Referral * Diagnostic Test (Routine) - Closed Specialty Diagnoses / Procedures Referred By Nir potts Referred To Contact Radiology Diagnoses IPMN (intraductal papillary mucinous neoplasm) Procedures CT Abdomen w Contrast Regino Carolina MD [facility] [place] [address] [facility] [place] [address] Referral ID Status Reason Start Date Expiration Date V isits Requested Visits Authorized [id number] Closed Specialty Service Requested 12/28/2021 06/28/2023 1 1 Encounter Details Date Type Department Care Team (Late st Contact Info) Description 12/28/2021 3:30 PM EDT Office [place] [address] Regino Carolina MD [facility] [place] [address] IPMN (intraductal papillary mucinous neoplasm) [...] is now a 75 year woman from [place], [place]. She presented to [facility] ED on 2019 with epigastric [...] of pancreatic duct/cyst fluid cytopathology per Acc# [id number] showed neoplastic Cells Present. Abundant macrophages, mixed leukocytes present and a single group of bland-appearing columnar cells. Cell block was examined. Note: The fluid CEA level is consistent with neoplastic process. 11/25/2019 surgical oncology consult. Maricruz was seen for surgery consultation. She was by herself. She described the episode that brought her to the ED at [facility] as the first time she [...] with for her stage I ILC ER+, NV-, HER2-- IDC of the left breast. She [...] the GJ anastomosis requiring TPN. Pathology: 03/23/2020 [facility]# [id number] Surgical Pathology DIAGNOSIS A - Portal vein [...] a safari trip with the group to [facility] which she is looking forward to. It is great to see that she is doing so well. I ordered another CT to be done in 1 year and we will look forward to seeing her back at the end of next summer. Jennifer Carolina MD 12/28/2021 This note was created using [employer]) voice recognition software. Addendum: Radiographic report reviewed [...] who have questions please contact the health family day care worker that requested your imaging first. documented in this encounter Plan of Treatment Upcoming Encounters Date Type Department Care Team (Late st Contact Info) Description 01/01/2025 2:00 PM EDT Office Visit Hematology/Oncology at [address] [phone] Jeffery Sanz MD [facility] DR HEMATOLOGY [place] [address] Mary Nails APRN [address] [place] [address] DR MEDICAL ONCOLOGY [place], [place] [id number] 01/01/2025 2:30 PM EDT Infusion Hematology Oncology at [address] [phone] 01/14/2025 11:00 AM EDT Laboratory Appointment Lab 3[place] [phone] 01/14/2025 1:[address] [place] [phone] Regino Carolina MD [facility] [place] [address] 01/14/2025 2:00 PM EDT Office [place] [phone] Regino Carolina MD [facility] [place] [address] documented as of this encounter Results * [...] who have questions please contact the health family day care worker that requested your imaging first. ? Narrative [...] 3. Benign-appearing subcentimeter liver lesions stable since 2020. Thank you for letting us participate in the care of this patient. If youare a health care provider and have any questions regarding this report,please contact the number below. For patients who have questions please contactthe health family day care worker that requested your imaging first. Regino Carolina [...] site documented in this encounter Care Teams Internal Grinder Tender Relationship Specialty Start Date End Date Zeny James APRN [address] [place] [address] PCP - General Family Medicine 09/23/19 documented as of this encounter
--- OUTSIDE RECORDS SUMMARY | 2024-05-10 14:51 | XMS_ITS | Encounter Summary ---
Author [place] [address] Care Team Providers Care Stranding Machine Operator Helper Name Role Phone Zeny James NIGHT MANAGER Primary Care Provider Encounter Details Date Type Department Care Team (Late st Contact Info) Description 07/22/2022 Specialty [place] [phone] Maylin Qiu, [facility] Social History Tobacco Use Types Packs/Day Years [...] 2:00 PM EDT Office Visit Hematology/Oncology at [address] [phone] Jeffery Sanz MD [facility] DR [place] [address] Mary Nails APRN [address] [place] [address] DR MEDICAL ONCOLOGY [place], [place] [id number] 01/01/2025 2:30 PM EDT Infusion Hematology Oncology at [address] [address] 01/14/2025 11:00 AM EDT Laboratory Appointment Lab 3[place] [phone] 01/14/2025 1:[address] [place] [place] [phone] Regino Carolina MD [facility] [place] [address] 01/14/2025 2:00 PM EDT Office [place] [address] Regino Carolina MD [facility] [place] [address] documented as of this encounter Visit Diagnoses Not on filedocumented in this encounter Care Teams Stranding Machine Operator Helper Relationship Specialty Start Date End Date Zeny James APRN [address] [place] [address] PCP - General Family Medicine 09/23/19 documented as of this encounter
--- OUTSIDE RECORDS SUMMARY | 2024-05-10 14:51 | XMS_ITS | Encounter Summary ---
Author Organization [facility] Address [facility] [place] [address] Care Team Providers Care Rug Measurer Name Role Phone Zeny James APRN Primary Care Provider [phone] Encounter Details Date Type Department Care Team (Late st Contact Info) Description 07/04/2022 Orders [place] [address] Regino Carolina MD [facility] [address] Social History Tobacco Use Types Packs/Day Years [...] PM EDT Office Visit Hematology/Oncology at [address] [phone] Jeffery Sanz MD [facility] [place] [address] Mary Nails APRN [address] [place] [address] DR MEDICAL ONCOLOGY [place], [place] [address] 01/01/2025 2:30 PM EDT Infusion Hematology Oncology at [address] [phone] 01/14/2025 11:00 AM EDT Laboratory Appointment Lab 3[place] [phone] 01/14/2025 1:[address] [place] [phone] Regino Carolina MD [facility] [address] 01/14/2025 2:00 PM EDT Office Visit [place] [address] Regino Carolina MD [facility] [address] documented as of this encounter Visit Diagnoses Not on filedocumented in this encounter Care Teams Rug Measurer Relationship Specialty Start Date End Date Zeny James APRN [address] [place] [address] [address] [place] [address] PCP - General Family Medicine 09/23/19 documented as of this encounter
--- OUTSIDE RECORDS SUMMARY | 2024-05-10 14:51 | XMS_ITS | Encounter Summary ---
Author Organization [facility] Address [facility] [place] [address] Care Team Providers Care Third Cook Name Role Phone Zeny James ATMOSPHERIC SCIENTIST Primary Care Provider Encounter Details Date Type [...] PM EDT Office Visit Hematology/Oncology at [address] [phone] Jeffery Sanz MD [facility] DR [place] [address] Mary Nails APRN [address] [place] [address] DR MEDICAL ONCOLOGY [place], [place] [id number] 01/01/2025 2:30 PM EDT Infusion Hematology Oncology at [address] [phone] 01/14/2025 11:00 AM EDT Laboratory Appointment Lab [address] [place] [phone] 01/14/2025 1:[address] [place] [phone] Regino Carolina MD [facility] [place] [address] 01/14/2025 2:00 PM EDT Office [place] [phone] Regino Carolina MD [facility] [place] [address] documented as of this encounter Visit Diagnoses Not on filedocumented in this encounter Care Teams Third Cook Relationship Specialty Start Date End Date Zeny James APRN [address] [facility] [address] [facility] 1 [place] [address] PCP - General Family Medicine 09/23/19 documented as of this encounter
--- OUTSIDE RECORDS SUMMARY | 2024-05-10 14:51 | XMS_ITS | Encounter Summary ---
Author Organization [facility] [place] [address] Care Team Providers Care Fabric Machine Operator Name Role Phone Zeny James JESUS ALBERTO Primary Care Provider [phone] Reason for Referral * Physical Therapy (Routine) - Closed Specialty Diagnoses / Procedures Referred By Nir potts Referred To Contact Diagnoses Malignant neoplasm of upper-outer quadrant of left breast in female, estrogen receptor positive Jeffery Sanz MD [facility] DR [place] [address] Referral ID Status Reason Start Date Expiration Date V isits Requested Visits Authorized [id number] Closed Evaluate and Treat 07/25/2022 01/21/2023 12 12 Encounter Details Date Type Department Care Team (Late st Contact Info) Description 07/25/2022 Orders Only Hematology [place] [address] Jeffery Sanz MD [facility] DR [place] [address] Malignant neoplasm of left breast in female, [...] PM EDT Office Visit Hematology/Oncology at [address] [phone] Jeffery Sanz MD [facility] DR [place] [address] Mary Nails APRN [address] [place] [address] [place] [address] 01/01/2025 2:30 PM EDT Infusion Hematology Oncology at [address] [place] [address] 01/14/2025 11:00 AM EDT Laboratory Appointment Lab [address] [address] 01/14/2025 1:[address] [place] [phone] Regino Carolina MD [facility] [place] [address] 01/14/2025 2:00 PM EDT Office Visit [place] [phone] Regino Carolina MD [facility] [place] [address] Scheduled Referrals Name Type Priority Associated Diagnoses [...] positive documented in this encounter Care Teams Fabric Machine Operator Relationship Specialty Start Date End Date Zeny James APRN [address] [place] [address] [address] [place] [address] PCP - General Family Medicine 09/23/19 documented as of this encounter
--- OUTSIDE RECORDS SUMMARY | 2024-05-10 14:51 | XMS_ITS | Encounter Summary ---
Author Organization [facility] [place] [address] Care Team Providers Care Repairer Resistance Welding Machines Name Role Phone Zeny James APRN Primary Care Provider Encounter Details Date Type Department Care Team (Late st Contact Info) Description 03/29/2021 Telephone [place] [address] Regino Carolina MD [facility] [place] [address] Social History Tobacco Use Types Packs/Day Years [...] (8-252 ng/mL), vitamin B12 779 (193-986 pg/mL) Jennifre Carolina MD 03/30/2021 9:55 AM documented in this encounter Plan of Treatment Upcoming Encounters Date Type Department Care Team (Late st Contact Info) Description 01/01/2025 2:00 PM EDT Office Visit Hematology/Oncology at [address] [phone] Jeffery Sanz MD [facility] DR [place] [address] Mary Nails BUYERS' AGENT [address] [place] [address] DR MEDICAL ONCOLOGY [place], [place] [id number] 01/01/2025 2:30 PM EDT Infusion Hematology Oncology at [address] [phone] 01/14/2025 11:00 AM EDT Laboratory Appointment Lab 3[place] [phone] 01/14/2025 1:[address] [place] [phone] Regino Carolina MD [facility] [place] [address] 01/14/2025 2:00 PM EDT Office Visit [place] [phone] Regino Carolina MD [facility] [place] [address] documented as of this encounter Visit Diagnoses Not on filedocumented in this encounter Care Teams Repairer Resistance Welding Machines Relationship Specialty Start Date End Date Zeny James APRN [address] [place] [address] [address] [place] [address] PCP - General Family Medicine 09/23/19 documented as of this encounter
--- OUTSIDE RECORDS SUMMARY | 2024-05-10 14:51 | XMS_ITS | Encounter Summary ---
Author Organization [facility] Address [facility] [place] [address] Care Team Providers Care Farebox Repairer Name Role Phone Zeny James APRN Primary Care Provider Encounter Details Date Type Department Care Team (Late st Contact Info) Description 07/05/2022 Orders [place] [address] [facility] [place] [address] Social History Tobacco Use Types Packs/Day Years [...] PM EDT Office Visit Hematology/Oncology at [address] [phone] [facility] DR [place] [address] Mary Nails APRN [address] [place] [address] DR MEDICAL ONCOLOGY [place], [place] [address] 01/01/2025 2:30 PM EDT Infusion Hematology Oncology at [address] [address] 01/14/2025 11:00 AM EDT Laboratory Appointment Lab 3[place] [phone] 01/14/2025 1:[address] [place] [phone] [facility] [place] [address] 01/14/2025 2:00 PM EDT Office [place] [address] [facility] [place] [address] documented as of this encounter Visit Diagnoses Not on filedocumented in this encounter Care Teams Farebox Repairer Relationship Specialty Start Date End Date Zeny James APRN [address] [place] [address] [address] [place] [address] PCP - General Family Medicine 09/23/19 documented as of this encounter
--- OUTSIDE RECORDS SUMMARY | 2024-05-10 14:51 | XMS_ITS | Encounter Summary ---
Author Organization [facility] Address [facility] [place] [address] Care Team Providers Care Hatch Supervisor Name Role Phone Zeny James APRN Primary Care Provider Encounter Details Date Type Department Care Team (Late st Contact Info) Description 09/08/2022 Notes [place] [phone] Maylin Dodge Social History Tobacco Use Types [...] 2:00 PM EDT Office Visit Hematology/Oncology at [address] [phone] Jeffery Sanz MD [facility] DR [place] [address] Mary Nails APRN [address] [place] [address] [place] [address] 01/01/2025 2:30 PM EDT Infusion Hematology Oncology at [address] [phone] 01/14/2025 11:00 AM EDT Laboratory Appointment Lab 3[place] [address] 01/14/2025 1:[address] [place] [address] Regino Carolina MD [facility] [place] [address] 01/14/2025 2:00 PM EDT Office [place] [address] Regino Carolina MD [facility] [place] [address] documented as of this encounter Visit Diagnoses Not on filedocumented in this encounter Care Teams Hatch Supervisor Relationship Specialty Start Date End Date Zeny James APRN [address] [place] [address] [address] [place] [address] PCP - General Family Medicine 09/23/19 documented as of this encounter
--- OUTSIDE RECORDS SUMMARY | 2024-05-10 14:51 | XMS_ITS | Encounter Summary ---
Author Organization [facility] Address [facility] [place] [address] Care Team Providers Care Steam Bone Press Tender Name Role Phone VasuZeny santos JESUS ALBERTO Primary Care Provider [phone] Encounter Details Date Type Department Care Team (Late st Contact Info) Description 11/10/2022 9:30 AM EDT Office Visit Hematology/Oncology at [address] [phone] Jeffery Sanz MD [facility] HEMATOLOGY [place] [address] Rhona Hogan, SENIOR CONTRACTS ADMINISTRATOR Malignant neoplasm of upper-outer quadrant of left [...] this encounter Progress Notes * Rhona Hogan, SENIOR CONTRACTS ADMINISTRATOR - 11/10/2022 9:30 AM EDT Subjective Patient ID: Linda Serrano is a 77 y.o. 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 ER-pos; ID-neg; HER2=2+. 02/06/01: R MRM/ax dissection. On path, [...] well. She does enjoy walking on the [place]. Review of Systems Constitutional: Negative. HENT: [...] 2:00 PM EDT Office Visit Hematology/Oncology at [address] [phone] Jeffery Sanz MD [facility] HEMATOLOGY [place] [address] Mary Nails APRN [address] [place] [address] DR MEDICAL ONCOLOGY [place], [place] [id number] 01/01/2025 2:30 PM EDT Infusion Hematology Oncology at [address] [phone] 01/14/2025 11:00 AM EDT Laboratory Appointment Lab [place] [phone] 01/14/2025 1:[address] [place] [phone] Regino Carolina MD [facility] [place] [address] 01/14/2025 2:00 PM EDT Office [place] [phone] Regino Carolina MD [facility] [place] [address] Scheduled Orders Name Type Priority Associated Diagnoses [...] site documented in this encounter Care Teams Steam Bone Press Tender Relationship Specialty Start Date End Date Zeny James APRN [address] [place] [address] [address] [place] [address] PCP - General Family Medicine 09/23/19 documented as of this encounter
--- OUTSIDE RECORDS SUMMARY | 2024-05-10 14:51 | XMS_ITS | Encounter Summary ---
Author Organization [facility] Address [facility] [place] [address] Care Team Providers Care Banquet Houseperson Name Role Phone Zeny James FURNACE LOADER Primary Care Provider [phone] Reason for Visit * Reason Comments Other prolia * Treatment/Therapy Plan Authorization (Routine) - Authorized Specialty Diagnoses / Procedures Referred By Contac t Referred To Contact Hematology and Oncology Diagnoses Malignant neoplasm of left breast in female, estrogen receptor positive, unspecified site of breast Osteopenia, unspecified location retirement current use of aromatase inhibitor Procedures TC DENOSUMAB, 1MG, INJECTION [id number] PROLIA Jeffery Sanz MD [facility] DR HEMATOLOGY [place] [address] Jeffery Sanz MD [facility] DR HEMATOLOGY [place] [address] Referral ID Status Reason Start Date Expiration Date V isits Requested Visits Authorized [id number] Authorized 04/17/2022 07/06/2024 99 99 Encounter Details Date Type Department Care Team (Late st Contact Info) Description 11/11/2021 1:30 PM EDT Infusion Hematology Oncology at [address] [phone] Osteopenia, unspecified location; retirement current use of aromatase inhibitor; Malignant neoplasm [...] months REASON FOR VISIT: prolia SUBJECTIVE Linda Maggie offers no complaints. OBJECTIVE LAB DATA: calcium [...] 2:00 PM EDT Office Visit Hematology/Oncology at [address] [phone] Jeffery Sanz MD [facility] DR HEMATOLOGY [place] [address] Mary Nails APRN [address] [place] [address] DR MEDICAL ONCOLOGY [place], [place] [id number] 01/01/2025 2:30 PM EDT Infusion Hematology Oncology at [address] [phone] 01/14/2025 11:00 AM EDT Laboratory Appointment Lab [address] [place] [phone] 01/14/2025 1:[address] [place] [phone] Regino Carolina MD [facility] [place] [address] 01/14/2025 2:00 PM EDT Office Visit [place] [phone] Regino Carolina MD [facility] [place] [address] documented as of this encounter Visit Diagnoses Diagnosis 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
--- OUTSIDE RECORDS SUMMARY | 2024-05-10 14:51 | XMS_ITS | Encounter Summary ---
[place] [address] Care Team Providers Care Health Education Coordinator Name Role Phone Zeny James JESUS ALBERTO Primary Care Provider Encounter Details Date Type Department Care Team (Latest Contact Info) Description 12/28/2021 12:30 PM EDT Laboratory Appointment Lab [address] [place] [phone] Iron deficiency anemia secondary to inadequate dietary [...] PM EDT Office Visit Hematology/Oncology at [address] [phone] Jeffery Sanz MD [facility] DR HEMATOLOGY [place] [address] Mary Nails APRN [address] [place] [address] DR MEDICAL ONCOLOGY [place], [place] [address] 01/01/2025 2:30 PM EDT Infusion Hematology Oncology at [address] [phone] 01/14/2025 11:00 AM EDT Laboratory Appointment Lab [place] [phone] 01/14/2025 1:[address] [place] [phone] Regino Carolina MD [facility] [place] [address] 01/14/2025 2:00 PM EDT Office [place] [address] Regino Carolina MD [facility] [place] [address] documented as of this encounter Procedures Procedure [...] EDT) Creatinine 0.53(L) 0.70 - 1.20 mg/dL [facility] Est Glomerular Filtration Rate 96 >=60 mL/min/1. 73 m?? [facility] Comment: This patient's estimated GFR [...] MD CHEMISTRY ORDERABL ES Performing Organization Address [facility]/ZIP Co de Phone Number [facility] [place] [address] * Ferritin (12/28/2021 12:23 PM EDT) Ferritin 38 30 - 400 ng/mL [facility] Comment: Pediatric reference ranges not verified at [facility], interpret with caution. Reference ranges for females greater than 50 years of age approach values for men, i.e., 30-400 ng/mL. Blood 12/28/2021 12:2 3 PM EDT 12/28/2021 12:26 PM EDT Narrative Resulting Agency Comment Spec In Lab Regino Carolina MD CHEMISTRY ORDERABL ES Performing Organization Address [facility] Co de Phone Number [facility] [place] [address] * (ABNORMAL) Iron and TIBC (12/28/2021 12:23 PM EDT) Iron 200(H) 30 - 150 mcg/dL [facility] TIBC 351 250 - 450 mcg/dL [facility] Iron Saturation 57(H) 20 - 50 % [facility] Blood 12/28/2021 12:2 3 PM EDT 12/28/2021 12:26 PM EDT Narrative Resulting Agency Comment Spec In Lab Regino Carolina MD CHEMISTRY ORDERABL ES Performing Organization Address [facility]/ZIP Co de Phone Number [facility] [place] [address] * Vitamin A (12/28/2021 12:23 PM EDT) Pathologist [facility] Vitamin A (AUGUST) 41.4 32.5 - 78.0 mcg/dL [facility] Comment: ADDITIONAL INFORMATION This test was developed and its performance characteristics determined by [facility] in a manner consistent with CLIA requirements. This test has not been cleared or approved by the U.S. Food and Drug Administration. Test Performed by: [facility] [address] [place] [address] Pharmacy Technician Program Director: Denzel Angel M.D. Ph.D.; CLIA# [id number] Blood 12/28/2021 12:2 3 PM EDT 12/28/2021 1:56 PM EDT Narrative Resulting Agency Comment Spec In Lab Regino Carolnia MD LAB SEND OUT ORDER MAGAN [facility] [place] [address] * Vitamin B12 (12/28/2021 12:23 PM EDT) [facility] Vitamin B12 748 232 - 1,245 pg/mL [facility] Blood 12/28/2021 12:2 3 PM EDT 12/28/2021 12:26 PM EDT Narrative Resulting Agency Comment Spec In Lab Regino Carolina MD CHEMISTRY ORDERABL ES Performing Organization Address [facility]/ZIP Co de Phone Number [facility] [place] [address] * Vitamin D, 25-Hydroxy (12/28/2021 12:23 PM EDT) [facility] Vitamin D Total 25 OH 32 21 - 100 ng/mL [facility] Vit D Interp Sufficient [facility] Blood 12/28/2021 12:2 3 PM EDT 12/28/2021 12:26 PM EDT Narrative Resulting Agency Comment Spec In Lab Regino Carolina MD CHEMISTRY ORDERABL ES Performing Organization Address City/[facility] Co de Phone Number [facility] [place] [address] * Vitamin E (12/28/2021 12:23 PM EDT) Vitamin E 14.5 5.5 - 17.0 mg/L [facility] Comment: ADDITIONAL INFORMATION This test was developed and its performance characteristics determined by [facility] in a manner consistent with CLIA requirements. This test has not been cleared or approved by the U.S. Food and Drug Administration. Test Performed by: [facility] - [address] [address] Pharmacy Technician Program Director: Denzel Angel M.D. Ph.D.; CLIA# [id number] Blood 12/28/2021 12:2 3 PM EDT 12/28/2021 1:56 PM EDT Narrative Resulting Agency Comment Spec In Lab Regino Carolina MD LAB SEND OUT ORDER MAGAN Performing Organization Address City/[facility] Co de Phone Number [facility] [place] [address] documented in this encounter Visit Diagnoses Diagnosis Iron deficiency anemia secondary to inadequate dietary iron intake Vitamin D deficiency Unspecified vitamin D deficiency Vitamin B12 deficiency Other B-complex deficiencies Exocrine pancreatic insufficiency Other specified disease of pancreas IPMN (intraductal papillary mucinous neoplasm) Neoplasm of unspecified nature of digestive system documented in this encounter Care Teams Health Education Coordinator Relationship Specialty Start Date End Date Zeny James APRN [address] [place] [address] PCP - General Family Medicine 09/23/19 documented as of this encounter
--- OUTSIDE RECORDS SUMMARY | 2024-05-10 14:52 | XMS_ITS | Encounter Summary ---
Author Organization [facility] [place] [address] Care Team Providers Care Middle [employer] Principal Name Role Phone Zeny James APRN Primary Care Provider Encounter Details Date Type Department Care Team (Late st Contact Info) Description 09/07/2020 Telephone [place]ematology [place] [phone] Aurelia Negrete, RD [facility] [place] [address] Social History Tobacco Use Types Packs/Day Years [...] Telephone Encounter - Aurelia Negrete, RD - 09/07/2020 12:15 PM EDT Received [...] PM EDT Office Visit Hematology/Oncology at [address] [phone] Jeffery Sanz MD [facility] DR HEMATOLOGY [place] [address] Mary Nails APRN [address] [place] [address] DR MEDICAL ONCOLOGY [place], [place] [id number] 01/01/2025 2:30 PM EDT Infusion Hematology Oncology at [address] [phone] 01/14/2025 11:00 AM EDT Laboratory Appointment Lab [address] [place] [phone] 01/14/2025 1:[address] [place] [phone] Regino Carolina MD [facility] [place] [address] 01/14/2025 2:00 PM EDT Office [place] [phone] Regino Carolina MD [facility] [place] [address] documented as of this encounter Visit Diagnoses Not on filedocumented in this encounter Care Teams [employer] Principal Relationship Specialty Start Date End Date Zeny James APRN [address] [place] [address] PCP - General Family Medicine 09/23/19 documented as of this encounter
--- OUTSIDE RECORDS SUMMARY | 2024-05-10 14:52 | XMS_ITS | Encounter Summary ---
[place] [address] Care Team Providers Care Dry Cleaning Checker Name Role Phone Zeny James APRN Primary Care Provider Reason for Referral * Diagnostic Test (Routine) - Closed Specialty Diagnoses / Procedures Referred By Nir potts Referred To Contact Radiology Diagnoses IPMN (intraductal papillary mucinous neoplasm) Procedures CT Abdomen w Contrast Regino Carolina MD [facility] [place] [address] [facility] [place] [address] Referral ID Status Reason Start Date Expiration Date V isits Requested Visits Authorized [id number] Closed Specialty Service Requested 12/01/2020 06/03/2022 1 1 Reason for Visit * Reason Comments Follow-up Encounter Details Date Type Department Care Team (Late st Contact Info) Description 12/01/2020 3:00 PM EDT Office [place] [phone] Regino Carolina MD [facility] DR [place] [address] IPMN (intraductal papillary mucinous neoplasm) [...] is now a 75 year woman from [place], [place]. She presented to [facility] ED on 2019 with [...] of pancreatic duct/cyst fluid cytopathology per Acc# [id number] showed neoplastic Cells Present. Abundant macrophages, mixed leukocytes present and a single group of bland-appearing columnar cells. Cell block was examined. Note: The fluid CEA level is consistent with neoplastic process. 11/25/2019 surgical oncology consult. Maricruz was seen for surgery consultation. She was by herself. She described the episode that brought her to the ED at [facility] as the first time [...] with for her stage I ILC ER+, [place]-, HER2-- IDC of the left breast. She [...] sips and chips POD 04/08: ROEL POD 04/09: ROEL. Advanced to FLD. Awaiting C.diff testing POD 04/10: +BM and flatus, c.diff negative, advanced to FLD for comfort only and tolerated well,started on carvedilol per medicine recs for SBP<150 POD 04/11: PICC rewired, ROEL. discharged Complications: #Delayed gastric emptying secondary to marginal ulcer at the GJ anastomosis requiring TPN. Pathology: 03/23/2020 [facility]# [id number] Surgical Pathology DIAGNOSIS A - Portal vein [...] work to be done as external-up at [facility]-in March which would be her normal [facility] date butwe will switch the surveillance dates to December annually going forward. CT ordered. Jennifer Carolina MD 12/01/2020 3:23 PM This note was created using [employer] ([employer]) voice recognition software. documented in this encounter Plan of Treatment Upcoming Encounters Date Type Department Care Team (Late st Contact Info) Description 01/01/2025 2:00 PM EDT Office Visit Hematology/Oncology at [address] [phone] Jeffery Sanz MD [facility] DR HEMATOLOGY [place] [address] Mary Nails APRN [address] [place] [address] [place] [address] 01/01/2025 2:30 PM EDT Infusion Hematology Oncology at [address] [phone] 01/14/2025 11:00 AM EDT Laboratory Appointment Lab [address] [place] [phone] 01/14/2025 1:[address] [place] [phone] Regino Carolina MD [facility] GENERAL SURGERY [place], [place] [phone] 01/14/2025 2:00 PM EDT Office [place] [phone] Regino Carolina MD [facility] [place] [address] documented as of this encounter Results * [...] who have questions please contact the health school child care attendant that requested your imaging first. ? Narrative 12/28/2021 3:15 PM EDT EXAMINATION: CT [...] patients who have questions please contactthe health school child care attendant that requested your imaging first. Regino Carolina MD IMG CT ORDERABLES documented in this encounter Visit Diagnoses Diagnosis IPMN (intraductal papillary mucinous neoplasm) Neoplasm of unspecified nature of digestive system IPMN (intraductal papillary mucinous neoplasm) Neoplasm of unspecified nature of digestive system documented in this encounter Care Teams Dry Cleaning Checker Relationship Specialty Start Date End Date Zeny James APRN [address] [place] [address] PCP - General Family Medicine 09/23/19 documented as of this encounter
--- OUTSIDE RECORDS SUMMARY | 2024-05-10 14:52 | XMS_ITS | Encounter Summary ---
Author Organization [facility] [place] [address] Care Team Providers Care Longwall Foreman Name Role Phone Zeny James APRN Primary Care Provider Encounter Details Date Type Department Care Team (Late st Contact Info) Description 04/27/2020 9:30 AM EST Telephone [place]ematology [place] [phone] Aurelia Negrete, JOSE MANUEL [facility] [place] [address] Social History Tobacco Use Types Packs/Day Years [...] Negrete RD - 04/27/2020 8:27 AM EST [facility] Dietitian Follow Up Call Linda is 74 years with newly diagnosed IPMN, s/p Whipple Resection Operations/Major Procedures: Operations: 03/23/2020 Surgeon(s) and Role: * Regino Carolina MD - Primary: Procedure(s): ROBOTIC PANCREATECTOMY,WHIPPLE, PARTIAL GASTRECTOMY W/ PANCREATOJEJUNOSTOMY MODIFIER ROBOT,STEPHANIE REINA @OMENTAL FLAP, INTRA-ABDOMINAL (WRVU 6.54) TPN Formula for Discharge (Show up to 1 orders; newest on the left.) ?? Start date and time 04/11/2020 1800 ? Adult TPN [[id number]] ?? Order Status ?? Active ? Macro Ingredients ?? amino acid 15% no.5 (ClinisoL) ?? 110 g ?? dextrose 70% ?? 118 g ? Electrolytes ?? sodium phosphate ?? 48 mmol ?? potassium chloride ?? 100 mEq ?? sodium chloride ?? 210 mEq ? Additives ?? trace elements Zn-Cu-Mn-Se ?? 1 mL ?? ascorbic acid (vitamin C) ?? 100 mg ?? Vit Q4-C9-L2-B5-B6 (B Complex) ?? 1 mL ?? zinc [...] her until Monday - other Son from [place] came to replace him this past weekend, then her sister will come Financial restraints: did not assess Assessment/Plan: Averaging 875 kcals/D with oral intake. Continues home TPN. Low appetite. Early satiety. 1. Recommend every other night TPN/communication with [place] RDN/orders signed. I will request followup call in another week. 2. Maricruz discontined Reglan today, will continue to monitor. documented in this encounter Plan of Treatment Upcoming Encounters Date Type Department Care Team (Late st Contact Info) Description 01/01/2025 2:00 PM EDT Office Visit Hematology/Oncology at [address] [phone] Jeffery Sanz MD [facility] DR HEMATOLOGY [place] [address] Mary Nails APRN [address] [place] [address] DR MEDICAL ONCOLOGY [place], [place] [address] 01/01/2025 2:30 PM EDT Infusion Hematology Oncology at [address] [phone] 01/14/2025 11:00 AM EDT Laboratory Appointment Lab [address] [place] [phone] 01/14/2025 1:[address] [place] [phone] Regino Carolina MD [facility] [place] [address] 01/14/2025 2:00 PM EDT Office [place] [phone] Regino Carolina MD [facility] [place] [address] documented as of this encounter Visit Diagnoses Not on filedocumented in this encounter Care Teams Longwall Foreman Relationship Specialty Start Date End Date Zeny James APRN [address] [place] [address] [address] [place], [place] [address] PCP - General Family Medicine 09/23/19 documented as of this encounter
--- OUTSIDE RECORDS SUMMARY | 2024-05-10 14:52 | XMS_ITS | Encounter Summary ---
Author Organization [facility] [place] [address] Care Team Providers Care Supervisor Lace Tearing Name Role Phone Zeny James APRN Primary Care Provider Encounter Details Date Type Department Care Team (Late st Contact Info) Description 10/05/2020 Orders Only [place] [phone] Regino Carolina MD [facility] [place] [address] Social History Tobacco Use Types Packs/Day Years [...] PM EDT Office Visit Hematology/Oncology at [address] [phone] Jeffery Sanz MD [facility] DR HEMATOLOGY [place] [address] Mary Nails, JESUS ALBERTO [address] [place] [address] DR MEDICAL ONCOLOGY [place], [place] [address] 01/01/2025 2:30 PM EDT Infusion Hematology Oncology at [address] [phone] 01/14/2025 11:00 AM EDT Laboratory Appointment Lab [place] [phone] 01/14/2025 1:[address] [place] [phone] Regino Carolina MD [facility] [place] [address] 01/14/2025 2:00 PM EDT Office Visit [place] [phone] Regino Carolina MD [facility] [place] [address] documented as of this encounter Visit Diagnoses Not on filedocumented in this encounter Care Teams Supervisor Lace Tearing Relationship Specialty Start Date End Date Zeny JamesJESUS ALBERTO [address] [place], [place] [address] PCP - General Family Medicine 09/23/19 documented as of this encounter
--- OUTSIDE RECORDS SUMMARY | 2024-05-10 14:52 | XMS_ITS | Encounter Summary ---
Author Organization [facility] [place] [address] Care Team Providers Care Bursar Name Role Phone Zeny James APRN Primary Care Provider Encounter Details Date Type Department Care Team (Late st Contact Info) Description 12/01/2020 3:00 PM EDT Clinical Support [place] [address] Aurelia Negrete, RD [facility] [place] [address] IPMN (intraductal papillary mucinous neoplasm) Social History [...] of this encounter Progress Notes * Aurelia Negrete, JOSE MANUEL - 12/01/2020 3:00 PM EDT [facility] Dietitian Follow Up Visit ?? Linda is 74 years with newly diagnosed IPMN, s/p Whipple Resection ?? Operations/Major Procedures: Operations: ??03/23/2020 ??Surgeon(s) and Role: ?* Regino Carolina MD - Primary: ?Procedure(s): ROBOTIC PANCREATECTOMY,WHIPPLE, PARTIAL GASTRECTOMY W/ PANCREATOJEJUNOSTOMY MODIFIER ROBOT,STEPHANIE XI @OMENTAL FLAP, INTRA-ABDOMINAL (WRVU 6.54) I was [...] lb 11.2 oz) Labs/scanned into eDH from [facility]: Vitamin A within normal limits when rechecked: 49.9 Lifts weights twice a week to include sit ups. Active within and outside her home. Plan: 1. AMANDA: recommend continue with PERT at 3 Creon 24 with meals and 1 with snacks. To optimize therapeutic effects of enzymes, dose throughout a meal. 2. I will add post Whipple nutrition labs to be drawn at [facility] in March. These same labs are recommended annually thereafter unless deficiency is detected. documented in this encounter Plan of Treatment Upcoming Encounters Date Type Department Care Team (Late st Contact Info) Description 01/01/2025 2:00 PM EDT Office Visit Hematology/Oncology at [address] [phone] Jeffery Sanz MD [facility] DR HEMATOLOGY AND ONCOLOGY [place], [place] [phone] Mary Nails APRN [address] [place] [address] DR MEDICAL ONCOLOGY [place], [place] [address] 01/01/2025 2:30 PM EDT Infusion Hematology Oncology at [address] [place] [address] 01/14/2025 11:00 AM EDT Laboratory Appointment Lab [address] [place] [address] 01/14/2025 1:[address] [place] [phone] Regino Carolina MD [facility] [place] [address] 01/14/2025 2:00 PM EDT Office Visit [place] [phone] Regino Carolina MD [facility] [place] [address] documented as of this encounter Visit Diagnoses Diagnosis IPMN (intraductal papillary mucinous neoplasm) Neoplasm of unspecified nature of digestive system documented in this encounter Care Teams Bursar Relationship Specialty Start Date End Date Zeny James APRN [address] [place] [address] PCP - General Family Medicine 09/23/19 documented as of this encounter
--- OUTSIDE RECORDS SUMMARY | 2024-05-10 14:52 | XMS_ITS | Encounter Summary ---
Author Organization [facility] [place] [address] Care Team Providers Care Commercial Lines Account Executive Name Role Phone Zeny James APRN Primary Care Provider Encounter Details Date Type Department Care Team (Late st Contact Info) Description 05/11/2020 9:00 AM EST Telephone Hematology [place] [address] [facility] [place] [address] Social History Tobacco Use Types Packs/Day Years [...] Negrete RD - 05/11/2020 7:55 AM EST [facility] Dietitian Follow Up Call Linda is 74 years with newly diagnosed IPMN, s/p Whipple Resection Operations/Major Procedures: Operations: 03/23/2020 Surgeon(s) and Role: * Regino Carolina MD - Primary: Procedure(s): ROBOTIC PANCREATECTOMY,WHIPPLE, PARTIAL GASTRECTOMY W/ PANCREATOJEJUNOSTOMY MODIFIER ROBOT,STEPHANIE REINA @OMENTAL FLAP, INTRA-ABDOMINAL (WRVU 6.54) Home TPN: 1100 mL daily, 100g Dex, 90g AA and 40g Lipids to provide 1100 kcals/bag and an average of 550 kcals/day with pt???s mdbro-gdivn-rdhib infusion schedule. Objective: Per Maricruz, weight is stable at 116 pounds Wt Readings from Last 3 Encounters: 04/21/20 53.5 kg (118 lb) 03/27/20 53.3 kg (117 lb 9.6 oz) 01/28/20 55.8 kg (123 lb) Weight History: UBW: %UBW: IBW: %IBW: Weight loss%: Usual weight is 120 pounds Assessment/Plan: 1. Per food record, consuming 8863-0908 kcals/D. Appetite remains low but mindful of [...] PM EDT Office Visit Hematology/Oncology at [address] [phone] Jeffery Sanz MD [facility] DR HEMATOLOGY [place] [address] Mary Nails APRN [address] [place] [address] DR MEDICAL ONCOLOGY [place], [place] [address] 01/01/2025 2:30 PM EDT Infusion Hematology Oncology at [address] [phone] 01/14/2025 11:00 AM EDT Laboratory Appointment Lab 3L [place] [phone] 01/14/2025 1:[address] [place] [address] Regino Carolina MD [facility] GENERAL SURGERY [place], [place] [phone] 01/14/2025 2:00 PM EDT Office [place] [address] Regino Carolina MD [facility] [place] [address] documented as of this encounter Visit Diagnoses Not on filedocumented in this encounter Care Teams Commercial Lines Account Executive Relationship Specialty Start Date End Date Zeny James APRN [address] [place] [address] PCP - General Family Medicine 09/23/19 documented as of this encounter
--- OUTSIDE RECORDS SUMMARY | 2024-05-10 14:52 | XMS_ITS | Encounter Summary ---
Author Organization [facility] [place] [address] Care Team Providers Care Spiritual Counselor Name Role Phone Zeny James APRN Primary Care Provider Encounter Details Date Type Department Care Team (Late st Contact Info) Description 07/13/2020 10:30 AM EDT Telephone Hematology [place] [address] [facility] [place] [address] Social History Tobacco Use Types Packs/Day Years [...] Negrete RD - 07/13/2020 10:52 AM EDT [facility] Nutrition Assessment Progress Note Linda Maggie Diagnosis: Linda is 74 years with newly diagnosed IPMN, s/p Whipple Resection ?? Operations/Major Procedures: Operations: ??03/23/2020 ??Surgeon(s) and Role: ?* Regino Carolina MD - Primary: ?Procedure(s): ROBOTIC PANCREATECTOMY,WHIPPLE, PARTIAL GASTRECTOMY W/ PANCREATOJEJUNOSTOMY MODIFIER ROBOT,DAVINCI XI @OMENTAL FLAP, INTRA-ABDOMINAL (WRVU 6.54) Assessment: [...] Assessment Information 07/13/2020 Height - Weight 1792 [place] Body Weight (IBW) (kg) - BMI (Calculated) - Weight fluctuates between 112-114 pounds, stable. Intervention: Recommend continue with current PERT regimen/3 with meals/1 with snacks Will ensure post op nutrition labs are entered for September visit/she is hopeful that this would include labs to assess kidney and liver function Follow Up: We will see in Lorri for 6 mos post op visit. Note: Please see Hematology/Oncology malnutrition flowsheet for complete RD assessment/documentation documented in this encounter Plan of Treatment Upcoming Encounters Date Type Department Care Team (Late st Contact Info) Description 01/01/2025 2:00 PM EDT Office Visit Hematology/Oncology at [address] [phone] [facility] DR [place] [address] Mary Nails APRN [address] [place] [address] [place] [address] 01/01/2025 2:30 PM EDT Infusion Hematology Oncology at [address] [phone] 01/14/2025 11:00 AM EDT Laboratory Appointment Lab 3L [place] [address] 01/14/2025 1:[address] [place] [place] [phone] [facility] [place] [address] 01/14/2025 2:00 PM EDT Office [place] [phone] [facility] [place] [address] documented as of this encounter Visit Diagnoses Not on filedocumented in this encounter Care Teams Spiritual Counselor Relationship Specialty Start Date End Date Zeny James APRN [address] [place] [address] PCP - General Family Medicine 09/23/19 documented as of this encounter
--- OUTSIDE RECORDS SUMMARY | 2024-05-10 14:52 | XMS_ITS | Encounter Summary ---
[place] [address] Care Team Providers Care Batch Roller Operator Name Role Phone Zeny James APRN Primary Care Provider Reason for Visit * Reason Comments Constipation Encounter Details Date Type Department Care Team (Late st Contact Info) Description 04/16/2020 Telephone [place] [phone] Arline Maurice RN Constipation Social History Tobacco [...] Office Visit Hematology/Oncology at [address] [phone] Jeffery Sanz MD [facility] DR HEMATOLOGY [place] [address] Mary Nails APRN [address] [place] [address] DR MEDICAL ONCOLOGY [place], [place] [address] 01/01/2025 2:30 PM EDT Infusion Hematology Oncology at [address] [phone] 01/14/2025 11:00 AM EDT Laboratory Appointment Lab 3L [place] [address] 01/14/2025 1:[address] [place] [address] Regino Carolina MD [facility] [place] [address] 01/14/2025 2:00 PM EDT Office [place] [address] Regino Carolina MD [facility] [place] [address] documented as of this encounter Visit Diagnoses Not on filedocumented in this encounter Care Teams Batch Roller Operator Relationship Specialty Start Date End Date Zeny James APRN [address] [place] [address] [address] [facility] 1 [place] [address] PCP - General Family Medicine 09/23/19 documented as of this encounter
--- OUTSIDE RECORDS SUMMARY | 2024-05-10 14:52 | XMS_ITS | Encounter Summary ---
[place] [address] Care Team Providers Care Operations Representative Name Role Phone Zeny James APRN Primary Care Provider Reason for Referral * Diagnostic Test (Routine) - Closed Specialty Diagnoses / Procedures Referred By Contac t Referred To Contact Radiology Diagnoses IPMN (intraductal papillary mucinous neoplasm) Procedures CT Abdomen & Pelvis w Contrast CT Abdomen w Contrast Regino Carolina MD [facility] [place] [address] [facility] [place] [address] Referral ID Status Reason Start Date Expiration Date V isits Requested Visits Authorized [id number] Closed Specialty Service Requested 09/28/2020 03/30/2022 1 1 Reason for Visit * Diagnostic Test (Routine) - Closed Specialty Diagnoses / Procedures Referred By Contac t Referred To Contact Radiology Diagnoses IPMN (intraductal papillary mucinous neoplasm) Procedures CT Abdomen & Pelvis w Contrast CT Abdomen w Contrast Regino Carolina MD [facility] [place] [address] [facility] [place] [address] Referral ID Status Reason Start Date Expiration Date V isits Requested Visits Authorized [id number] Closed Specialty Service Requested 09/28/2020 03/30/2022 1 1 Encounter Details Date Type Department Care Team (Late st Contact Info) Description 12/01/2020 11:34 AM EDT - 12/01/2020 11:59 PM EDT Hospital Encounter CT Scan at [facility] [place] [address] Regino Carolina MD [facility] [place] [address] IPMN (intraductal papillary mucinous neoplasm) Discharge Disposition: [...] daily. Blood-Glucose Meter Misc 1 Application by Post-A-Vox.(Non-Drug; Combo Route) route 3 times daily (before [...] (E.C.) Take 81 mg by mouth daily. vitamin A (Aquasol) 10,000 unit Capsule Take 1 capsule by mouth 3 times daily. 90 capsule 1 10/07/2020 04/29/2021 kwpqqc-jurwogfl-oqmk ase DR (Creon) 24,000-76,000 -120,000 unit Capsule, [...] daily. 01/19/2023 fluticasone propionate (FLONASE) 50 mcg/actuation [place], Suspension 1 spray by Each Nare route [...] 2:00 PM EDT Office Visit Hematology/Oncology at [address] [phone] Jeffery Sanz MD [facility] DR HEMATOLOGY AND ONCOLOGY [place], [place] [phone] Mary Nails APRN [address] [place] [address] [place] [address] 01/01/2025 2:30 PM EDT Infusion Hematology Oncology at [address] [address] 01/14/2025 11:00 AM EDT Laboratory Appointment Lab [address] [address] 01/14/2025 1:[address] [place] [place] [phone] Regino Carolina MD [facility] [place] [address] 01/14/2025 2:00 PM EDT Office [place] [phone] Regino Carolina MD [facility] [place] [address] documented as of this encounter Procedures Procedure [...] who have questions please contact the health primary care physician that requested your imaging first. ? Narrative 12/01/2020 3:41 PM EDT EXAMINATION: CT [...] administration of contrast. Administered 66.0 ml of [id number] mg/ml. Oral contrast was administered. COMPARISON: CT [...] patients who have questions please contactthe health primary care physician that requested your imaging first. Regino Carolina [...] mLs documented in this encounter Care Teams Operations Representative Relationship Specialty Start Date End Date Zeny James JESUS ALBERTO [address] [facility] 1 [place] [address] PCP - General Family Medicine 09/23/19 documented as of this encounter
--- OUTSIDE RECORDS SUMMARY | 2024-05-10 14:52 | XMS_ITS | Encounter Summary ---
Author Organization [facility] [place] [address] Care Team Providers Care Telephone Coin Box Collector Name Role Phone Zeny James APRN Primary Care Provider Encounter Details Date Type Department Care Team (Late st Contact Info) Description 12/25/2020 Telephone Dermatology at [facility] [address] [place] [address] Estela Velasquez MD [facility] DR M[place] [address] Social History Tobacco Use Types Packs/Day Years [...] message left at patient request #Will have secretary of state call and schedule an ED&C documented in this encounter Plan of Treatment Upcoming Encounters Date Type Department Care Team (Late st Contact Info) Description 01/01/2025 2:00 PM EDT Office Visit Hematology/Oncology at [address] [phone] Jeffery Sanz MD [facility] DR [place] [address] Mary Nails APRN [address] [place] [address] DR MEDICAL ONCOLOGY [place], [place] [id number] 01/01/2025 2:30 PM EDT Infusion Hematology Oncology at [address] [phone] 01/14/2025 11:00 AM EDT Laboratory Appointment Lab [place] [phone] 01/14/2025 1:[address] [place] [phone] Regino Carolina MD [facility] [place] [address] 01/14/2025 2:00 PM EDT Office [place] [phone] Regino Carolina MD [facility] [place] [address] documented as of this encounter Visit Diagnoses Not on filedocumented in this encounter Care Teams Telephone Coin Box Collector Relationship Specialty Start Date End Date Zeny James APRN [address] [place] [address] PCP - General Family Medicine 09/23/19 documented as of this encounter
--- OUTSIDE RECORDS SUMMARY | 2024-05-10 14:52 | XMS_ITS | Encounter Summary ---
Author Organization [facility] [place] [address] Care Team Providers Care Duck Farmer Name Role Phone Zeny James APRN Primary Care Provider Encounter Details Date Type Department Care Team (Late st Contact Info) Description 05/19/2020 2:30 PM EST Clinical Support [place] [address] Aurelia Negrete, RD [facility] [place] [address] IPMN (intraductal papillary mucinous neoplasm) Social History [...] this encounter Progress Notes * Aurelia Negrete, RD - 05/19/2020 2:30 PM EST [facility] Dietitian Follow Up Visit Linda is 74 [...] an average of 550 kcals/day with pt???s lnhtv-teavo-qzese infusion schedule/discontinued Doing ok with increasing kcal intake--there are some foods she has not tried again: yogurt, pot chips (right through me) but attributes to previous food aversions Senna-s: one in am, two at night Creon 24: dosing one with meals Soup for lunch and crackers/squash or vegetable kale soup Last night: anais(two) Objective: Per Maricruz, weight is stable at [...] once daily 5. I will enter [place] nutrition labs and CBC with diff and [...] PM EDT Office Visit Hematology/Oncology at [address] [phone] Jeffery Sanz MD [facility] DR [place] [address] Mary Nails APRN [address] [place] [address] DR MEDICAL ONCOLOGY [place], [place] [id number] 01/01/2025 2:30 PM EDT Infusion Hematology Oncology at [address] [phone] 01/14/2025 11:00 AM EDT Laboratory Appointment Lab [address] [address] 01/14/2025 1:[address] [place] [phone] Regino Carolina MD [facility] [place] [address] 01/14/2025 2:00 PM EDT Office [place] [address] Regino Carolina MD [facility] [place] [address] documented as of this encounter Visit Diagnoses Diagnosis IPMN (intraductal papillary mucinous neoplasm) Neoplasm of unspecified nature of digestive system documented in this encounter Care Teams Duck Farmer Relationship Specialty Start Date End Date Erika JESUS ALBERTO M[facility] [address] [place], [place] [id number] PCP - General Family Medicine 09/23/19 documented as of this encounter
--- OUTSIDE RECORDS SUMMARY | 2024-05-10 14:52 | XMS_ITS | Encounter Summary ---
Author Organization [facility] [place] [address] Care Team Providers Care Filling Room Operator Name Role Phone Zeny James APRN Primary Care Provider Encounter Details Date Type Department Care Team (Late st Contact Info) Description 01/11/2021 4:00 PM EDT Office Visit Dermatology at [facility] [address] [place] [address] Estela Cavazos MD [facility] [place] [address] History of basal cell carcinoma Social History [...] family history N SOCIAL HISTORY Has garcia IMVU ?? PRE-PROCEDURE SCREENING If no, type N. If yes, include details below Allergy to lidocaine, epinephrine, Dermabond, chlorhexidine, or adhesives: No Bleeding disorder or blood thinners: ASA 81mg, Vitamin E, Pravastatin 20mg, Garibaldi-3 Pacemaker, defibrillator, deep brain stimulator, cochlear implant: No History of Present Illness: Linda Serrano is a 75 y.o. Patient returns to clinic today for an ED&C of a biopsy proven BCC in the right posterior calf. Last visit at [facility] Derm: 12/03/2020 Last visit with this provider: [...] scheduled for follow up []Note routed to sales secretary []Recall placed in scheduling system []Appointment scheduled at checkout Scribe attestation: Laura Cruz LPN has performed the documentation for this encounter in thepresence of and acting as a scribe for ESTELA CAVAZOS MD. I performed the above scribed service and agree with the accuracy of the documentation in this encounter. Reviewed and signed by: ESTELA CAVAZOS MD Dermatology [facility] documented in this encounter Plan of Treatment Upcoming Encounters Date Type Department Care Team (Late st Contact Info) Description 01/01/2025 2:00 PM EDT Office Visit Hematology/Oncology at [address] [phone] Jeffery Sanz MD [facility] DR H[place] [address] Mary Nails, TRANSFORMER MOLDER [address] [place] [address] [place] [address] 01/01/2025 2:30 PM EDT Infusion Hematology Oncology at [address] [phone] 01/14/2025 11:00 AM EDT Laboratory Appointment Lab [address] [phone] 01/14/2025 1:[address] [place] [phone] Regino Carolina MD [facility] [place] [address] 01/14/2025 2:00 PM EDT Office Visit [place] [address] Regino Carolina MD [facility] [place] [address] documented as of this encounter Visit Diagnoses Diagnosis History of basal cell carcinoma Personal history of other malignant neoplasm of skin documented in this encounter Care Teams Filling Room Operator Relationship Specialty Start Date End Date JairoshereeDelaneyZenyJESUS ALBERTO noriega [facility] [address] [place] [address] PCP - General Family Medicine 09/23/19 documented as of this encounter
--- OUTSIDE RECORDS SUMMARY | 2024-05-10 14:52 | XMS_ITS | Encounter Summary ---
[place] [address] Care Team Providers Care Director Distribution Name Role Phone Zeny James APRN Primary Care Provider [phone] Encounter Details Date Type Department Care Team (Late st Contact Info) Description 04/14/2020 Telephone [place] [phone] Felicity King, RN Social History Tobacco Use [...] PERTINENT PAST MEDICAL HISTORY: PT is s/p [facility] Operative Note ?? Patient Name: Linda Serrano : [id number] MR#: [id number] ?? Case Date: 03/23/2020 ?? Surgeon: Surgeon(s) and Role: * Regino Carolina MD - Primary Registered Nurse Swage Tender: Whitney Rangel, RN ?? Preoperative diagnosis: IPMN [...] PM EDT Office Visit Hematology/Oncology at [address] [phone] Jeffery Sanz MD [facility] DR [place] [address] Mary Nails APRN [address] [place] [address] DR MEDICAL ONCOLOGY [place], [place] [address] 01/01/2025 2:30 PM EDT Infusion Hematology Oncology at [address] [phone] 01/14/2025 11:00 AM EDT Laboratory Appointment Lab [address] [place] [phone] 01/14/2025 1:[address] [place] [phone] Regino Carolina MD [facility] [place] [address] 01/14/2025 2:00 PM EDT Office [place] [address] Regino Carolina MD [facility] [place] [address] documented as of this encounter Visit Diagnoses Not on filedocumented in this encounter Care Teams Director Distribution Relationship Specialty Start Date End Date Zeny James APRN [address] [facility] [address] [place] [address] PCP - General Family Medicine 09/23/19 documented as of this encounter
--- OUTSIDE RECORDS SUMMARY | 2024-05-10 14:52 | XMS_ITS | Encounter Summary ---
Author Organization [facility] [place] [address] Care Team Providers Care Administrative Analyst Name Role Phone Zeny James APRN Primary Care Provider Reason for Visit * Reason Comments Follow-up Encounter Details Date Type Department Care Team (Late st Contact Info) Description 04/21/2020 2:30 PM EST Office Visit [place] [address] Regino Carolina MD [facility] [place] [address] IPMN (intraductal papillary mucinous neoplasm) Social History [...] Serrano is a 74 year woman from [place], [place]. She presented to [facility] ED on2019 with epigastric abdominal pain x1 [...] of pancreatic duct/cyst fluid cytopathology per Acc# [id number] showed neoplastic Cells Present. Abundant macrophages, mixed leukocytes present and a single group of bland-appearing columnar cells. Cell block was examined. Note: The fluid CEA level is consistent with neoplastic process. 11/25/2019 surgical oncology consult. Maricruz was seen for surgery consultation. She was by herself. She described the episode that brought her to the ED at [facility] as the first time she is ever [...] with for her stage I ILC ER+, OR-, HER2-- IDC of the left breast. She [...] (PriLOSEC) 20 mg Capsule, Delayed Release(E.C.) ??? axnyjt-qzqjrfvd-ysenily (Ryan 24) 24,000-76,000 -120,000 unit Capsule, Delayed Release(E.C.) [...] E (vitamin E) 400 unit Capsule ??? lestzn-acnaoxxp-egtbhrt (Ryan) 24,000-76,000 -120,000 unit Capsule, Delayed Release(E.C.) ??? acetaminophen (Tylenol) 500 mg Tablet ??? aspirin EC 81 mg Tablet, Delayed Release (E.C.) ??? b complex vitamins Capsule ??? CALCIUM CARBONATE-VITAMIN D3 ORAL ??? pravastatin (Pravachol) 20 mg Tablet ??? albuteroL 90 mcg/actuation HFA Aerosol Inhaler ??? fluticasone propionate (FLONASE) 50 mcg/actuation Polson, Suspension ??? anastrozole (Arimidex) 1 mg Tablet ??? Wixela Inhub 500-50 mcg/dose Disk with Device ??? cholecalciferol, Vitamin D3, 1,000 unit Capsule ??? multivit,iron,minerals/lutein (CENTRUM SILVER ULTRA WOMEN'S ORAL) ??? magnesium oxide 400 mg magnesium Capsule ??? fish oil-omega-3 fatty acids 1,000 mg Capsule Pathology: 03/23/2020 [facility]# [id number] Surgical Pathology DIAGNOSIS A - Portal vein [...] 36.4 ??C (97.6 ??F), resp. rate 16, ejwnfw183.5 cm (5' 2.01), weight 53.5 kg (118 [...] who has been staying with her odilia Gee since discharge on the day after [place]. Overall she seems to be doing quite [...] I saw her today with Aurelia and Aurelia will talk to her about what foods [...] see her back in 1 month's time. Jennfier Carolina MD 04/21/2020 3:09 PM This note was created using [employer]) voice recognition software. documented in this encounter Plan of Treatment Upcoming Encounters Date Type Department Care Team (Late st Contact Info) Description 01/01/2025 2:00 PM EDT Office Visit Hematology/Oncology at [address] [phone] Jeffery Sanz MD [facility] DR HEMATOLOGY [place] [address] Mary Nails APRN [address] [place] [address] [place] [address] 01/01/2025 2:30 PM EDT Infusion Hematology Oncology at [address] [phone] 01/14/2025 11:00 AM EDT Laboratory Appointment Lab [place] [phone] 01/14/2025 1:[address] [place] [phone] Regino Carolina MD [facility] [place] [address] 01/14/2025 2:00 PM EDT Office Visit [place] [address] Regino Carolina MD [facility] [place] [address] documented as of this encounter Visit Diagnoses Diagnosis IPMN (intraductal papillary mucinous neoplasm) Neoplasm of unspecified nature of digestive system documented in this encounter Care Teams Administrative Analyst Relationship Specialty Start Date End Date Zeny James APRN [address] [place] [address] PCP - General Family Medicine 09/23/19 documented as of this encounter
--- OUTSIDE RECORDS SUMMARY | 2024-05-10 14:52 | XMS_ITS | Encounter Summary ---
[place] [address] Care Team Providers Care Major League Baseball Player Name Role Phone Zeny James APRN Primary Care Provider Reason for Visit * Reason Comments Follow-up Encounter Details Date Type Department Care Team (Late st Contact Info) Description 07/06/2020 10:15 AM EDT Office Visit Hematology [place] [address] Roosevelt Dueñas MD Malignant neoplasm of upper-outer [...] Lymph Nodes Examined: ??2 ? Number of [place] Nodes Examined: ??2 Pathologic Stage Classification (pTNM, [...] Being managed by Dr. Jennifer Carolina. S/P [place] 03/23/20. 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 > Scheduled to receive 2nd MODERNA vaccination for COVID-19 on 07/10/20. 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 Lives alone ( 8 yr ago). Family History Problem Relation Age of Onset ??? Breast Cancer Sister 46 CHEK2 mutation ??? Ovarian Cancer Neg Hx Sister had some genetic testing in early . Patient indicates her sister had a CHEK2 mutation. 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 The following 47 genes were analyzed: APC, [...] 2:00 PM EDT Office Visit Hematology/Oncology at [address] [phone] Jeffery Sanz MD [facility] DR HEMATOLOGY [place] [address] Mary Nails APRN [address] [place] [address] DR MEDICAL ONCOLOGY [place] [id number] 01/01/2025 2:30 PM EDT Infusion Hematology Oncology at [address] [phone] 01/14/2025 11:00 AM EDT Laboratory Appointment Lab 3[place] [phone] 01/14/2025 1:[address] [place] [phone] Regino Carolina MD [facility] [place] [address] 01/14/2025 2:00 PM EDT Office [place] [phone] Regino Carolina MD [facility] [place] [address] documented as of this encounter Visit Diagnoses Diagnosis Malignant neoplasm of upper-outer quadrant of left breast in female, 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
--- OUTSIDE RECORDS SUMMARY | 2024-05-10 14:52 | XMS_ITS | Encounter Summary ---
Author Organization [facility] [place] [address] Care Team Providers Care Senior Svp Name Role Phone VasuZeny santos JESUS ALBERTO Primary Care Provider [phone] Encounter Details Date Type Department Care Team (Late Contact Info) Description 12/02/2020 Orders [place] [address] Regino Carolina MD [facility] [place] [address] Pancreatic insufficiency; Other iron deficiency anemia Social [...] PM EDT Office Visit Hematology/Oncology at [address] [phone] Jeffery Sanz MD [facility] DR HEMATOLOGY [place] [address] Mary Nails APRN [address] [place] [address] [place] [address] 01/01/2025 2:30 PM EDT Infusion Hematology Oncology at [address] [phone] 01/14/2025 11:00 AM EDT Laboratory Appointment Lab 3[place] [address] 01/14/2025 1:[address] [place] [phone] Regino Carolina MD [facility] [place] [address] 01/14/2025 2:00 PM EDT Office [place] [phone] Regino Carolina MD [facility] [place] [address] documented as of this encounter Visit Diagnoses Diagnosis Pancreatic insufficiency Other specified disease of pancreas Other iron deficiency anemia documented in this encounter Care Teams Senior Svp Relationship Specialty Start Date End Date Zeny James APRN [address] [place] [address] PCP - General Family Medicine 09/23/19 documented as of this encounter
--- OUTSIDE RECORDS SUMMARY | 2024-05-10 14:52 | XMS_ITS | Encounter Summary ---
Author Organization [facility] [place] [address] Care Team Providers Care Lightning Rod Erector Name Role Phone eZny James APRN Primary Care Provider Encounter Details Date Type Department Care Team (Late st Contact Info) Description 12/09/2020 Telephone Dermatology at [facility] [address] [place] [address] Estela Velasquez MD [facility] DR [place] [address] Social History Tobacco Use Types Packs/Day Years [...] Sybil about pathology results. Please call herat [phone] and you may leave a detailed message if she does not answer. Thank you, Maricruz documented in this encounter Plan of Treatment Upcoming Encounters Date Type Department Care Team (Late st Contact Info) Description 01/01/2025 2:00 PM EDT Office Visit Hematology/Oncology at [address] [phone] Jeffery Sanz MD [facility] DR [place] [address] Mary Nails APRN [address] [place] [address] DR MEDICAL ONCOLOGY [place], [place] [id number] 01/01/2025 2:30 PM EDT Infusion Hematology Oncology at [address] [phone] 01/14/2025 11:00 AM EDT Laboratory Appointment Lab [place] [phone] 01/14/2025 1:[address] [place] [phone] Regino Carolina MD [facility] [place] [address] 01/14/2025 2:00 PM EDT Office [place] [phone] Regino Carolina MD [facility] [place] [address] documented as of this encounter Visit Diagnoses Not on filedocumented in this encounter Care Teams Lightning Rod Erector Relationship Specialty Start Date End Date Zeny James APRN [address] [place] [address] PCP - General Family Medicine 09/23/19 documented as of this encounter
--- OUTSIDE RECORDS SUMMARY | 2024-05-10 14:52 | XMS_ITS | Encounter Summary ---
Author Organization [facility] [place] [address] Care Team Providers Care Bull Riveter Name Role Phone VasuZeny santos JESUS ALBERTO Primary Care Provider [phone] Encounter Details Date Type Department Care Team (Late Contact Info) Description 07/13/2020 Orders [place] [address] Regino Carolina MD [facility] [place] [address] Other iron deficiency anemia; Pancreatic insufficiency Social [...] PM EDT Office Visit Hematology/Oncology at [address] [phone] Jeffery Sanz MD [facility] DR [place] [address] Mary Nails APRN [address] [place] [address] [place] [address] 01/01/2025 2:30 PM EDT Infusion Hematology Oncology at [address] [phone] 01/14/2025 11:00 AM EDT Laboratory Appointment Lab 3[address] [place] [address] 01/14/2025 1:[address] [place] [phone] Regino Carolina MD [facility] [place] [address] 01/14/2025 2:00 PM EDT Office [place] [phone] Regino Carolina MD [facility] [place] [address] documented as of this encounter Visit Diagnoses Diagnosis Other iron deficiency anemia Pancreatic insufficiency Other specified disease of pancreas documented in this encounter Care Teams Bull Riveter Relationship Specialty Start Date End Date Zeny James APRN [address] [place] [address] PCP - General Family Medicine 09/23/19 documented as of this encounter
--- OUTSIDE RECORDS SUMMARY | 2024-05-10 14:52 | XMS_ITS | Encounter Summary ---
Author Organization [facility] [place] [address] Care Team Providers Care Party Plan Demonstrator Name Role Phone Zeny James JESUS ALBERTO Primary Care Provider Encounter Details Date Type Department Care Team (Late st Contact Info) Description 10/07/2020 Orders [place] [address] Arline Maurice, RN Social History Tobacco Use [...] PM EDT Office Visit Hematology/Oncology at [address] [phone] Jeffery Sanz MD [facility] [place] [address] Mary Nails POLITICAL ANTHROPOLOGIST [address] [place] [address] [place] [address] 01/01/2025 2:30 PM EDT Infusion Hematology Oncology at [address] [address] 01/14/2025 11:00 AM EDT Laboratory Appointment Lab [address] [address] 01/14/2025 1:[address] [place] [phone] Regino Carolina MD [facility] [place] [address] 01/14/2025 2:00 PM EDT Office [place] [phone] Regino Carolina MD [facility] [place] [address] documented as of this encounter Visit Diagnoses Not on filedocumented in this encounter Care Teams Party Plan Demonstrator Relationship Specialty Start Date End Date Zeny James APRN [address] [place] [address] PCP - General Family Medicine 09/23/19 documented as of this encounter
--- OUTSIDE RECORDS SUMMARY | 2024-05-10 14:52 | XMS_ITS | Encounter Summary ---
[place] [address] Care Team Providers Care Speech Pathologist Name Role Phone Zeny James APRN Primary Care Provider [phone] Reason for Visit * Reason Comments Follow-up Encounter Details Date Type Department Care Team (Late st Contact Info) Description 01/11/2021 2:45 PM EDT Office Visit Hematology [place] [address] Roosevelt Dueñas MD Malignant neoplasm of upper-outer [...] cancer cells with immunostaining) Stain intensity: Strong VA immunoreactivity: Negative (<1% cancer cells with immunostaining) [...] Lymph Nodes Examined: ??2 ? Number of [place] Nodes Examined: ??2 Pathologic Stage Classification (pTNM, [...] 55). Two of 9 nodes were positive. ER-pos/VA-neg. Received AC/Taxol. Then took tamoxifen for 5 [...] Being managed by Dr. Jennifer Carolina. S/P [place] 03/23/20. 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 > She has completed MODERNA COVIDvaccination x2. 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 Lives alone ( >8 yr ago). Family History Problem Relation Age of Onset ??? Breast Cancer Sister 46 CHEK2 mutation ??? Ovarian Cancer Neg Hx Sister had some genetic testing in early . Patient indicates her sister had a CHEK2 mutation. 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 The following 47 genes were analyzed: APC, [...] cells were positive for ER, negative for VA. HER2 without amplification. There was no angiolymphatic invasion and 2 sentinel nodes were negative. pT1c pN0 OncotypeDx Recurrence Score = 23, which as per [employer] trial does not warrant adjuvant chemo. 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 Prior R breast invasive lobular ca in 2000 at age 55. Two of 9 nodes were positive. ER-pos/VA-neg. Received AC/Taxol. Then took tamoxifen for 5 [...] PM EDT Office Visit Hematology/Oncology at [address] [phone] Jeffery Sanz MD [facility] DR HEMATOLOGY [place] [address] Mary Nails APRN [address] [place] [address] DR MEDICAL ONCOLOGY [place], [place] [id number] 01/01/2025 2:30 PM EDT Infusion Hematology Oncology at [address] [place] [address] 01/14/2025 11:00 AM EDT Laboratory Appointment Lab [address] [address] 01/14/2025 1:[address] [place] [phone] Regino Carolina MD [facility] [place] [address] 01/14/2025 2:00 PM EDT Office [place] [phone] Regino Carolina MD [facility] [place] [address] documented as of this encounter Visit Diagnoses Diagnosis Malignant neoplasm of upper-outer quadrant of left breast in female, estrogen receptor positive documented in this encounter Care Teams Speech Pathologist Relationship Specialty Start Date End Date Zeny James APRN [address] [place] [address] PCP - General Family Medicine 09/23/19 documented as of this encounter
--- OUTSIDE RECORDS SUMMARY | 2024-05-10 14:52 | XMS_ITS | Encounter Summary ---
Author Organization [facility] [place] [address] Care Team Providers Care Cosmetologist Name Role Phone Zeny James APRN Primary Care Provider Encounter Details Date Type Department Care Team (Late st Contact Info) Description 05/04/2020 9:30 AM EST Telephone Hematology [place] [address] [facility] [place] [address] Social History Tobacco Use Types Packs/Day Years [...] Negrete RD - 05/04/2020 10:01 AM EST [facility] Dietitian Follow Up Call Linda is 74 years with newly diagnosed IPMN, s/p Whipple Resection Operations/Major Procedures: Operations: 03/23/2020 Surgeon(s) and Role: * Regino Carolina MD - Primary: Procedure(s): ROBOTIC PANCREATECTOMY,WHIPPLE, PARTIAL GASTRECTOMY W/ PANCREATOJEJUNOSTOMY MODIFIER ROBOT,STEPHANIE REINA @OMENTAL FLAP, INTRA-ABDOMINAL (WRVU 6.54) Called Maricruz--states [...] this week despite reduction in TPN to tinhj-yhmqz-ueofb. She is up frequently overnight to urinate [...] an average of 550 kcals/day with pt???s ytbdd-idebw-nyfby infusion schedule. - Reduce Na content to [...] 2:00 PM EDT Office Visit Hematology/Oncology at [address] [phone] Jeffery Sanz MD [facility] DR HEMATOLOGY [place] [address] Mary Nails APRN [address] [place] [address] [place] [address] 01/01/2025 2:30 PM EDT Infusion Hematology Oncology at [address] [phone] 01/14/2025 11:00 AM EDT Laboratory Appointment Lab 3[place] [phone] 01/14/2025 1:[address] [place] [phone] Regino Carolina MD [facility] [place] [address] 01/14/2025 2:00 PM EDT Office [place] [address] Regino Carolina MD [facility] [place] [address] documented as of this encounter Visit Diagnoses Not on filedocumented in this encounter Care Teams Cosmetologist Relationship Specialty Start Date End Date Zeny James APRN [address] [place] [address] PCP - General Family Medicine 09/23/19 documented as of this encounter
--- OUTSIDE RECORDS SUMMARY | 2024-05-10 14:52 | XMS_ITS | Encounter Summary ---
Author Organization [facility] [place] [address] Care Team Providers Care Clinical Nursing Intern Name Role Phone Zeny James APRN Primary Care Provider Encounter Details Date Type Department Care Team (Late st Contact Info) Description 11/25/2020 Telephone Dermatology at [facility] [address] [place] [address] Estela Velasquez MD [facility] DR [place] [address] Social History Tobacco Use Types Packs/Day Years [...] patient I left a voice message on Witget phone to call. I was able to schedule her an appointment on 01/11/21 at 4:00pm with Dr. Velasquez per her request since she has another an appointment at [facility]. * Telephone Encounter - Mani Rivas LNA - 11/25/2020 4:33 PM EDT Linda Serrano called and asked for marketing secretary to call her back at [phone] she is hoping she could be scheduled on 01/11 with , however I was unable to help due to having a full schedule on this day. documented in this encounter Plan of Treatment Upcoming Encounters Date Type Department Care Team (Late st Contact Info) Description 01/01/2025 2:00 PM EDT Office Visit Hematology/Oncology at [address] [phone] Jeffery Sanz MD [facility] DR [place] [address] Mary Nails APRN [address] [place] [address] DR MEDICAL ONCOLOGY [place], [place] [id number] 01/01/2025 2:30 PM EDT Infusion Hematology Oncology at [address] [phone] 01/14/2025 11:00 AM EDT Laboratory Appointment Lab [place] [phone] 01/14/2025 1:[address] [place] [phone] Regino Carolina MD [facility] [place] [address] 01/14/2025 2:00 PM EDT Office Visit [place] [phone] Regino Carolina MD [facility] [place] [address] documented as of this encounter Visit Diagnoses Not on filedocumented in this encounter Care Teams Clinical Nursing Intern Relationship Specialty Start Date End Date Erika ZenyJESUS ALBERTO noriega [address] [place] [address] PCP - General Family Medicine 09/23/19 documented as of this encounter
--- OUTSIDE RECORDS SUMMARY | 2024-05-10 14:52 | XMS_ITS | Encounter Summary ---
Author Organization [facility]ela [facility] [place] [address] Care Team Providers Care Costume Technician Name Role Phone Zeny James APRN Primary Care Provider Encounter Details Date Type Department Care Team (Late st Contact Info) Description 04/21/2020 2:30 PM EST Clinical Support [place] [address] Aurelia Negrete, RD [facility] [place] [address] IPMN (intraductal papillary mucinous neoplasm) Social History [...] Progress Notes * Aurelia Negrete, RD - 04/21/2020 2:30 PM EST [facility] Dietitian Initial Consultation Referred by: Surg Onc Reason for consultation: LUX Mckeon is 74 years with newly diagnosed IPMN, s/p Whipple Resection Operations/Major Procedures: Operations: 03/23/2020 Surgeon(s) and Role: * Regino Carolina MD - Primary: Procedure(s): ROBOTIC PANCREATECTOMY,WHIPPLE, PARTIAL GASTRECTOMY W/ PANCREATOJEJUNOSTOMY MODIFIER ROBOTSTEPHANIE @OMENTAL FLAP, INTRA-ABDOMINAL (WRVU 6.54) Appetite: full liquid diet TPN Formula for Discharge (Show up to 1 orders; newest on the left.) ?? Start date and time 04/11/2020 1800 ? Adult TPN [[id number]] ?? Order Status ?? Active ? Macro Ingredients ?? amino acid 15% no.5 (ClinisoL) ?? 110 g ?? dextrose 70% ?? 118 g ? Electrolytes ?? sodium phosphate ?? 48 mmol ?? potassium chloride ?? 100 mEq ?? sodium chloride ?? 210 mEq ? Additives ?? trace elements Zn-Cu-Mn-Se ?? 1 mL ?? ascorbic acid (vitamin C) ?? 100 mg ?? Vit E4-W5-H0-B5-B6 (B Complex) ?? 1 mL ?? zinc [...] her until Monday - other Son from [place] coming to replace him this weekend,then her [...] order is attached. I did email Dr. Carolina yesterday as her lab levels of Mag [...] PM EDT Office Visit Hematology/Oncology at [address] [phone] Jeffery Sanz MD [facility] DR [place] [address] Mary Nails APRN [address] [place] [address] [place] [address] 01/01/2025 2:30 PM EDT Infusion Hematology Oncology at [address] [phone] 01/14/2025 11:00 AM EDT Laboratory Appointment Lab 3[address] [place] [phone] 01/14/2025 1:[address] [place] [address] Regino Carolina MD [facility] [place] [address] 01/14/2025 2:00 PM EDT Office Visit [place] [address] Regino Carolina MD [facility] [place] [address] documented as of this encounter Visit Diagnoses Diagnosis IPMN (intraductal papillary mucinous neoplasm) Neoplasm of unspecified nature of digestive system documented in this encounter Care Teams Costume Technician Relationship Specialty Start Date End Date Zeny James APRN [address] [place] [address] PCP - General Family Medicine 09/23/19 documented as of this encounter
--- OUTSIDE RECORDS SUMMARY | 2024-05-10 14:52 | XMS_ITS | Encounter Summary ---
Author Organization [facility] [place] [address] Care Team Providers Care Reference Test Clerk Name Role Phone Zeny James APRN Primary Care Provider [phone] Reason for Visit * Reason Comments Follow-up Encounter Details Date Type Department Care Team (Late st Contact Info) Description 05/19/2020 2:30 PM EST Office Visit [place] [address] Regino Carolina MD [facility] [place] [address] Gastroparesis Social History Tobacco Use Types Packs/Day [...] so well. This note was created using [employer] ([employer]) voice recognition software. documented in this encounter Plan of Treatment Upcoming Encounters Date Type Department Care Team (Late st Contact Info) Description 01/01/2025 2:00 PM EDT Office Visit Hematology/Oncology at [address] [phone] Jeffery Sanz MD [facility] DR [place] [address] Mary Nails APRN [address] [place] [address] DR MEDICAL ONCOLOGY [place], [place] [id number] 01/01/2025 2:30 PM EDT Infusion Hematology Oncology at [address] [address] 01/14/2025 11:00 AM EDT Laboratory Appointment Lab 3[place] [address] 01/14/2025 1:[address] [place] [address] Regino Carolina MD [facility] [place] [address] 01/14/2025 2:00 PM EDT Office Visit [place] [address] Regino Carolina MD [facility] [place] [address] documented as of this encounter Visit Diagnoses Diagnosis Gastroparesis documented in this encounter Care Teams Reference Test Clerk Relationship Specialty Start Date End Date Zeny James JESUS ALBERTO [address] [place] [address] PCP - General Family Medicine 09/23/19 documented as of this encounter
--- OUTSIDE RECORDS SUMMARY | 2024-05-10 14:52 | XMS_ITS | Encounter Summary ---
Author Organization [facility] Address [facility] [place] [address] Care Team Providers Care Platen Drier Operator Name Role Phone Zeny James COORDINATOR OF LIBRARY SERVICES Primary Care Provider Encounter Details Date Type Department Care Team (Late st Contact Info) Description 06/25/2020 Telephone Hematology [place] [phone] Aurelia Negrete, RD [facility] [place] [address] Social History Tobacco Use Types Packs/Day Years [...] Telephone Encounter - Aurelia Negrete, RD - 06/26/2020 8:16 AM EST Received call from Linda-has experienced occasional loose urgent stools otherwise moving bowels once daily. Finds that she needs to take laxative each pm to keep bowels moving. Inquires if this may be related to malabsorption. Adds that weight is stable. 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 +Gas. Currently dosing Creon 24: 2 with meals and 1 with snacks. Suspect AMANDA : recommend increase to 3 Creon 24 with meals and 1 with snacks. I will f/u call end [facility] to check in but encouraged [...] 2:00 PM EDT Office Visit Hematology/Oncology at [address] [phone] Jeffery Sanz MD [facility] DR HEMATOLOGY [place] [address] Mary Nails APRN [address] [place] [address] DR MEDICAL ONCOLOGY [place], [place] [id number] 01/01/2025 2:30 PM EDT Infusion Hematology Oncology at [address] [phone] 01/14/2025 11:00 AM EDT Laboratory Appointment Lab 3[place] [phone] 01/14/2025 1:[address] [place] [address] Regino Carolian MD [facility] [place] [address] 01/14/2025 2:00 PM EDT Office Visit [place] [phone] Regino Carolina MD [facility] [place] [address] documented as of this encounter Visit Diagnoses Not on filedocumented in this encounter Care Teams Platen Drier Operator Relationship Specialty Start Date End Date Zeny James APRN [address] [place] [address] 1 [place] [address] PCP - General Family Medicine 09/23/19 documented as of this encounter
--- OUTSIDE RECORDS SUMMARY | 2024-05-10 14:52 | XMS_ITS | Encounter Summary ---
Author Organization [facility] [place] [address] Care Team Providers Care Facilities And Grounds Director Name Role Phone Zeny James APRN Primary Care Provider Reason for Visit * Reason Comments Skin Check Encounter Details Date Type Department Care Team (Late st Contact Info) Description 12/03/2020 10:30 AM EDT Office Visit Dermatology at [address] [phone] Estela Cavazos MD [facility] [place] [address] Reyes angioma; Seborrheic keratosis; Solar lentigo; Multiple [...] thinners: ASA 81mg, Vitamin E, Pravastatin 20mg, Millwood-3 Pacemaker, defibrillator, deep brain stimulator, cochlear implant: No History of Present Illness: Linda Serrano is a 75 y.o. year old. Patient returns to clinic todayfor a full skin exam and she reports a spot on the right posterior calf that is asymptomatic. Last visit at [facility] Derm: 11/25/2019 Last visit with this provider: [...] 1 year for FSE []Note routed to medical office secretary [x]Recall has been placed in scheduling system []Appointment scheduled at checkout Scribe attestation: Laura Cruz LPN who has performed the documentation for this encounter inthe presence of and acting as a scribe for ESTELA CAVAZOS MD. I performed the above scribed service and agree with the accuracy of the documentation in this encounter. Reviewed and signed by: ESTELA CAVAZOS MD Dermatology [facility] documented in this encounter Plan of Treatment Upcoming Encounters Date Type Department Care Team (Late st Contact Info) Description 01/01/2025 2:00 PM EDT Office Visit Hematology/Oncology at [address] [phone] Jeffery Sanz MD [facility] DR [place] [address] Mary Nails APRN [address] [place] [address] [place] [address] 01/01/2025 2:30 PM EDT Infusion Hematology Oncology at [address] [phone] 01/14/2025 11:00 AM EDT Laboratory Appointment Lab [place] [phone] 01/14/2025 1:[address] [place] [phone] Regino Carolina MD [facility] [place] [address] 01/14/2025 2:00 PM EDT Office [place] [phone] Regino Carolina MD [facility] [place] [address] documented as of this encounter Procedures Procedure Name Priority Date/Time Associated Diagnosis Comments SPECIMEN TO PATHOLOGY Routine 12/03/2020 10:50 AM EDT Neoplasm of uncertain behavior of skin SURGICAL PATHOLOGY REPORT Routine 12/03/2020 10:45 AM EDT documented in this encounter Results * Specimen to Pathology (12/03/2020 10:50 AM EDT) AP Specimen 12/03/2020 10:5 0 AM EDT 12/03/2020 10:50 AM EDT Narrative [facility] - 12/03/2020 10:50 AM EDT Specimen requisition ordered. ??Separate Pathology report to follow Estela Cavazos MD PATHOLOGY/CYTOLOGY O RDERABLES [facility] [place] [address] * Surgical Pathology Report (12/03/2020 10:45 AM EDT) Final Diagnosis [id number] ? Location: HDM The signing pathologist has [...] Verified: ??12/07/2020 14:28 ??Dermatopatholo gist Performed at: ??-[facility] [place], [place], [place] SPECIMEN(S) SUBMITTED A - Right posterior [...] submitted in 1 cassette labeled A1. ??pps 12/07/2020 2:28 PM EDT [facility] SPECIMEN FROM SKIN / Unknown 12/03/2020 10:45 AM EDT 12/03/2020 10:45 AM EDT Estela Cavazos MD PATHOLOGY/CYTOLOGY O RDERABLES Performing Organization Address City/State/[facility] Co de Phone Number [facility] [place] [address] documented in this encounter Visit Diagnoses Diagnosis Reyes angioma Nevus, non-neoplastic Seborrheic keratosis Other seborrheic keratosis Solar lentigo Other dyschromia Multiple benign nevi Benign neoplasm of skin, site unspecified History of basal cell carcinoma Personal history of other malignant neoplasm of skin Seborrheic keratosis, inflamed Inflamed seborrheic keratosis Neoplasm of uncertain behavior of skin documented in this encounter Care Teams Facilities And Grounds Director Relationship Specialty Start Date End Date Zeny James APRN [address] [place] [address] PCP - General Family Medicine 09/23/19 documented as of this encounter
--- OUTSIDE RECORDS SUMMARY | 2024-05-10 14:52 | XMS_ITS | Encounter Summary ---
Author Organization [facility] Address [facility] [place] [address] Care Team Providers Care Exercise Rider Name Role Phone Zeny James APRN Primary Care Provider Encounter Details Date Type Department Care Team (Late st Contact Info) Description 05/01/2020 Telephone Hematology [place] [phone] Aurelia Negrete, RD [facility] [place] [address] Social History Tobacco Use Types Packs/Day Years [...] Telephone Encounter - Aurelia Negrete, RD - 05/01/2020 10:00 AM EST Received phone call from Maricruz--loose, frequent stools --started on Monday, small pellet BM, moved bowels well at 3pm and three more times following. Monday/off of TPN, additional loose stools this morning. She is dosing Senna-s, two, twice daily. Prior to ipple, bowels moved without issue-relied on both yogurt [...] PM EDT Office Visit Hematology/Oncology at [address] [phone] Jeffery Sanz MD [facility] DR HEMATOLOGY [place] [address] Mary Nails APRN [address] [place] [address] [place] [address] 01/01/2025 2:30 PM EDT Infusion Hematology Oncology at [address] [phone] 01/14/2025 11:00 AM EDT Laboratory Appointment Lab [address] [phone] 01/14/2025 1:[address] [place] [phone] Regino Carolina MD [facility] [place] [address] 01/14/2025 2:00 PM EDT Office Visit [place] [address] Regino Carolina MD [facility] [place] [address] documented as of this encounter Visit Diagnoses Not on filedocumented in this encounter Care Teams Exercise Rider Relationship Specialty Start Date End Date Zeny James APRN [address] [place] [address] PCP - General Family Medicine 09/23/19 documented as of this encounter
--- OUTSIDE RECORDS SUMMARY | 2024-05-10 14:52 | XMS_ITS | Encounter Summary ---
Author Organization [facility] Address [facility] [place] [address] Care Team Providers Care Sap Security Architect Name Role Phone Zeny James APRN Primary Care Provider Encounter Details Date Type Department Care Team (Late st Contact Info) Description 01/01/2021 Telephone Hematology [place] [phone] Aurelia Negrete, RD [facility] [place] [address] Social History Tobacco Use Types Packs/Day Years [...] Telephone Encounter - Aurelia Negrete, RD - 01/01/2021 11:25 AM EDT Received a call from Maricruz--weight has dropped about 5 pounds/6 weeks and recent episode of diarrhearequiring imodium for 1-2 days. Now moving bowels 1-3 times a day in the morning, sometimes several(3) episodes in the morning. Stools float and are comfort advisor in color. She maintains on stimulant and [...] every other night softener instead. [facility]/confirmed with Lisa that we will receive results. Her PCP is tracking elevated LFTS and HGBA1C. documented in this encounter Plan of Treatment Upcoming Encounters Date Type Department Care Team (Late st Contact Info) Description 01/01/2025 2:00 PM EDT Office Visit Hematology/Oncology at [address] [phone] Jeffery Sanz MD [facility] DR [place] [address] Mary Nails APRN [address] [place] [address] DR MEDICAL ONCOLOGY [place], [place] [phone] 01/01/2025 2:30 PM EDT Infusion Hematology Oncology at [address] [phone] 01/14/2025 11:00 AM EDT Laboratory Appointment Lab 3[place] [phone] 01/14/2025 1:[address] [place] [address] Regino Carolina MD [facility] [place] [address] 01/14/2025 2:00 PM EDT Office Visit [place] [phone] Regnio Carolina MD [facility] [place] [address] documented as of this encounter Visit Diagnoses Not on filedocumented in this encounter Care Teams Sap Security Architect Relationship Specialty Start Date End Date Erika JESUS ALBERTO Moura [address] [place] [address] PCP - General Family Medicine 09/23/19 documented as of this encounter
--- OUTSIDE RECORDS SUMMARY | 2024-05-10 14:52 | XMS_ITS | Encounter Summary ---
[place] [address] Care Team Providers Care Mobile Crane Operator Name Role Phone Zeny James APRN Primary Care Provider Reason for Referral * Diagnostic Test (Routine) - Closed Specialty Diagnoses / Procedures Referred By Nir potts Referred To Contact Radiology Diagnoses IPMN (intraductal papillary mucinous neoplasm) Procedures CT Abdomen & Pelvis w Contrast CT Abdomen w Contrast Regino Carolina MD [facility] [place] [address] [facility] [place] [address] Referral ID Status Reason Start Date Expiration Date V isits Requested Visits Authorized [id number] Closed Specialty Service Requested 09/28/2020 03/30/2022 1 1 Reason for Visit * Reason Comments Follow-up Encounter Details Date Type Department Care Team (Late st Contact Info) Description 09/28/2020 1:00 PM EDT Office Visit [place] [address] Regino Carolina MD [facility] [place] [address] IPMN (intraductal papillary mucinous neoplasm) [...] is now a 75 year woman from [place], [place]. She presented to [facility] ED on 2019 with epigastric abdominal pain [...] of pancreatic duct/cyst fluid cytopathology per Acc# [id number] showed neoplastic Cells Present. Abundant macrophages, mixed leukocytes present and a single group of bland-appearing columnar cells. Cell block was examined. Note: The fluid CEA level is consistent with neoplastic process. 11/25/2019 surgical oncology consult. Maricruz was seen for surgery consultation. She was by herself. She described the episode that brought her to the ED at [facility] as the first time she is ever [...] with for her stage I ILC ER+, ME-, HER2-- IDC of the left breast. She [...] the GJ anastomosis requiring TPN. Pathology: 03/23/2020 Acc# [id number] Surgical Pathology DIAGNOSIS A - Portal vein [...] 10:11 PM This note was created using [employer] ([employer]) voice recognition software. Addendum: Labs reviewed below. [...] 2:00 PM EDT Office Visit Hematology/Oncology at [address] [phone] Jeffery Sanz MD [facility] DR HEMATOLOGY [place] [address] Mary Nails APRN [address] [place] [address] DR MEDICAL ONCOLOGY [place], [place] [address] 01/01/2025 2:30 PM EDT Infusion Hematology Oncology at [address] [phone] 01/14/2025 11:00 AM EDT Laboratory Appointment Lab [address] [place] [phone] 01/14/2025 1:[address] [place] [phone] Regino Carolina MD [facility] [place] [address] 01/14/2025 2:00 PM EDT Office Visit [place] [phone] Regino Carolina MD [facility] [place] [address] documented as of this encounter Results * [...] who have questions please contact the health regular senior care provider that requested your imaging first. ? Electronically signed by: Raimundo Mccurdy MD, [facility] ([phone]), at 12/01/2020 3:41 PM Narrative 12/01/2020 3:41 [...] administration of contrast. Administered 66.0 ml of [id number] mg/ml. Oral contrast was administered. COMPARISON: CT [...] patients who have questions please contactthe health regular senior care provider that requested your imaging first. Electronically signed by: Raimundo Mccurdy MD, [facility]([phone]), at 12/01/2020 3:41 PM Regino Carolina MD IMG CT ORDERABLES documented in this encounter Visit Diagnoses Diagnosis IPMN (intraductal papillary mucinous neoplasm) Neoplasm of unspecified nature of digestive system IPMN (intraductal papillary mucinous neoplasm) Neoplasm of unspecified nature of digestive system documented in this encounter Care Teams Mobile Crane Operator Relationship Specialty Start Date End Date Zeny James APRN [address] [place] [address] PCP - General Family Medicine 09/23/19 documented as of this encounter
--- OUTSIDE RECORDS SUMMARY | 2024-05-10 14:52 | XMS_ITS | Encounter Summary ---
Author Organization [facility] [place] [address] Care Team Providers Care Last Scourer Name Role Phone VasuZeny santos JESUS ALBERTO Primary Care Provider Encounter Details Date Type Department Care Team (Late Contact Info) Description 09/28/2020 Orders Only [place] [address] Arline Maurice RN Pre-diabetes; IPMN (intraductal papillary [...] 2:00 PM EDT Office Visit Hematology/Oncology at [address] [phone] Jeffery Sanz MD [facility] DR HEMATOLOGY [place] [address] Mary Nails APRN [address] [place] [address] DR MEDICAL ONCOLOGY [place], [place] [address] 01/01/2025 2:30 PM EDT Infusion Hematology Oncology at [address] [place] [address] 01/14/2025 11:00 AM EDT Laboratory Appointment Lab 3[place] [address] 01/14/2025 1:[address] [place] [phone] Regino Carolina MD [facility] [place] [address] 01/14/2025 2:00 PM EDT Office Visit [place] [phone] Regino Carolina MD [facility] [place] [address] documented as of this encounter Visit Diagnoses Diagnosis Pre-diabetes Other abnormal glucose IPMN (intraductal papillary mucinous neoplasm) Neoplasm of unspecified nature of digestive system documented in this encounter Care Teams Last Scourer Relationship Specialty Start Date End Date Zeny James APRN [address] [place] [address] PCP - General Family Medicine 09/23/19 documented as of this encounter
--- OUTSIDE RECORDS SUMMARY | 2024-05-10 14:52 | XMS_ITS | Encounter Summary ---
Author Organization [facility] [place] [address] Care Team Providers Care Statistical Consultant Name Role Phone Zeny James APRN Primary Care Provider [phone] Encounter Details Date Type Department Care Team (Late st Contact Info) Description 10/12/2020 Notes Only Hematology [place] [address] Aurelia Negrete, JOSE MANUEL [facility] [place] [address] Social History Tobacco Use Types Packs/Day Years [...] Notes * Aurelia Negrete, JOSE MANUEL - 10/12/2020 10:55 AM EDT Hi, her [...] PM EDT Office Visit Hematology/Oncology at [address] [phone] [facility] DR HEMATOLOGY [place] [address] Mary Nails APRN [address] [place] [address] [place] [address] 01/01/2025 2:30 PM EDT Infusion Hematology Oncology at [address] [phone] 01/14/2025 11:00 AM EDT Laboratory Appointment Lab 3[place] [address] 01/14/2025 1:[address] [place] [phone] [facility] [place] [address] 01/14/2025 2:00 PM EDT Office Visit [place] [phone] [facility] [place] [address] documented as of this encounter Visit Diagnoses Not on filedocumented in this encounter Care Teams Statistical Consultant Relationship Specialty Start Date End Date Delaney JamesJESUS ALBERTO noriega [facility] [address] [place], [place] [address] PCP - General Family Medicine 09/23/19 documented as of this encounter
--- OUTSIDE RECORDS SUMMARY | 2024-05-10 14:52 | XMS_ITS | Encounter Summary ---
Author Organization Formerly [facility] [place] [address] Care Team Providers Care Tonnage Compilation Clerk Name Role Phone VasuZeny santos JESUS ALBERTO Primary Care Provider Encounter Details Date Type Department Care Team (Late st Contact Info) Description 09/07/2020 Orders Only General [place] [address] Regino Carolina MD [facility] [place] [address] Social History Tobacco Use Types Packs/Day Years [...] 2:00 PM EDT Office Visit Hematology/Oncology at [address] [phone] Jeffery Sanz MD [facility] DR HEM[place] [address] Mary Nails APRN [address] [place] [address] DR MEDICAL ONCOLOGY [place], [place] [id number] 01/01/2025 2:30 PM EDT Infusion Hematology Oncology at [address] [phone] 01/14/2025 11:00 AM EDT Laboratory Appointment Lab [address] [place] [address] 01/14/2025 1:[address] [place] [phone] Regino Carolina MD [facility] [place] [address] 01/14/2025 2:00 PM EDT Office Visit General [place] [phone] Regino Carolina MD [facility] [place] [address] documented as of this encounter Visit Diagnoses Not on filedocumented in this encounter Care Teams Tonnage Compilation Clerk Relationship Specialty Start Date End Date Zeny James APRN [address] [place] [address] PCP - General Family Medicine 09/23/19 documented as of this encounter
--- OUTSIDE RECORDS SUMMARY | 2024-05-10 14:52 | XMS_ITS | Encounter Summary ---
Author Organization [facility] [place] [address] Care Team Providers Care Mixing Machine Feeder Name Role Phone Zeny James JESUS ALBERTO Primary Care Provider Encounter Details Date Type Department Care Team (Latest Contact Info) Description 09/28/2020 12:00 PM EDT Laboratory Appointment Lab [place] [phone] IPMN (intraductal papillary mucinous neoplasm); Pancreatic insufficiency; [...] PM EDT Office Visit Hematology/Oncology at [address] [phone] Jeffery Sanz MD [facility] DR HEMATOLOGY [place] [address] Mary Nails APRN [address] [place] [address] DR MEDICAL ONCOLOGY [place], [place] [phone] 01/01/2025 2:30 PM EDT Infusion Hematology Oncology at [address] [place] [address] 01/14/2025 11:00 AM EDT Laboratory Appointment Lab [place] [address] 01/14/2025 1:[address] [place] [address] Regino Carolina MD [facility] [place] [address] 01/14/2025 2:00 PM EDT Office Visit [place] [phone] Regino Carolina MD [facility] GENERAL SURGERY [place], [place] [phone] documented as of this encounter Procedures Procedure [...] AM EDT Pancreatic insufficiency COMPREHENSIVE METABOLIC PANEL Routine 09/28/2020 11:52 AM EDT IPMN (intraductal papillary mucinous neoplasm) documented in this encounter Results * (ABNORMAL) Hemoglobin A1c (09/28/2020 11:52 AM EDT) Hemoglobin A1c 6.1(H) 4.3 - 5.6 % [facility] [...] Mellitus, Diabetes Care 2013; 36: Suppl. 1, D78-03 Estimated Average Glucose See note mg/dL [facility] [...] into estimated average glucose values. ??Diabetes Care 2008:31(8):3217-1732. Blood Venous Draw / Unknown 09/28/2020 11:52 AM EDT 09/30/2020 8:51 AM EDT Narrative Resulting Agency Comment Spec In Lab Zeny Adjovu BOOKING POLICE OFFICER CHEMISTRY ORDERABLE S Performing Organization Address City/State/[facility] Co de Phone Number [facility] [place] [address] * Differential, Automated (09/28/2020 11:52 AM EDT) Neutrophil % 62.6 % [facility] Neutrophil Absolute 4.45 1.70 - 6.10 x10(3)/[facility] LABOR[facility] Lymph % 22.9 % [facility] Lymphocytes Abs 1.6 0.9 - 3.2 x10(3)/[facility] Monocyte % 8.3 % [facility] Monocyte Abs 0.6 0.3 - 0.9 x10(3)/[facility] LABOR[facility] Eos % 5.1 % [facility] Eosinophils Abs 0.4 0.0 - 0.4 x10(3)/[facility] Basophil % 0.8 % [facility] Baso Absolute 0.1 0.0 - 0.1 x10(3)/[facility] LABORATORY Immature Gran % 0.30 % [facility] Comment: Immature granulocytes(IG's)percentage and absolute count will include metamyelocytes, myelocytes, and promyelocytes. Blood smears from CBCs yielding IG's will be scanned manually for concordance. If this scan disagrees with the automated IG or if promyelocytes are noted, a manual differential will be performed. Immature Gran Absolute 0.02 0.00 - 0.04 x10(3)/mcL [facility] Blood 09/28/2020 11:5 2 AM EDT 09/28/2020 12:17 PM EDT Narrative Resulting Agency Comment Spec In Lab Anjelica Jordan APRN HEMATOLOGY ORDER MAGAN [facility] [place] [address] * (ABNORMAL) Hemogram (09/28/2020 11:52 AM EDT) White Blood Cell 7.1 4.0 - 9.5 x10(3)/ L [facility] Red Blood Cell 4.25 4.00 - 5.21 x10(6)/[facility] LABORATORY Hemoglobin 12.1 11.7 - 15.5 gm/dL [facility] Hematocrit 37.6 35.7 - 45.8 % [facility] Mean Cell Volume 88.5 82.6 - 94.4 fL [facility] Mean Cell Hemoglobin 28.5 27.1 - 32.0 pg [facility] Mean Cell Hemoglobin Concentration 32.2 31.7 - 35.0 gm/dL [facility] Platelet 300 145 - 357 x10(3)/mc L [facility] RDW Standard Deviation 45.8 37.0 - 46.0 fL [facility] RDW coefficient of variation 14.2(H) 11.5 - 14.1 % [facility] Mean Platelet Volume 10.7 7.6 - 12.9 fL [facility] NRBC% auto 0.0 % [facility] NRBC Absolute 0.000 0.000 - 0.000 x10(3)/mc L [facility] Blood 09/28/2020 11:5 2 AM EDT 09/28/2020 12:17 PM EDT Narrative Resulting Agency Comment Spec In Lab Anjelica Jordan APRN HEMATOLOGY ORDER MAGAN Performing Organization Address City/[facility]/ZIP Co de Phone Number [facility] [place] [address] * (ABNORMAL) Ferritin (09/28/2020 11:52 AM EDT) Ferritin 19(L) 30 - 400 ng/mL [facility] Comment: Pediatric reference ranges not verified at [facility], interpret with caution. Reference ranges for females greater than 50 years of age approach values for men, i.e., 30-400 ng/mL. Blood 09/28/2020 11:5 2 AM EDT 09/28/2020 12:17 PM EDT Narrative Resulting Agency Comment Spec In Lab Regino Carolina MD CHEMISTRY ORDERABL ES Performing Organization Address [facility]/ZIP Co de Phone Number [facility] [place] [address] * (ABNORMAL) Iron and TIBC (09/28/2020 11:52 AM EDT) Iron 63 30 - 150 mcg/dL [facility] TIBC 342 250 - 450 mcg/dL [facility] Iron Saturation 18(L) 20 - 50 % [facility] Blood 09/28/2020 11:5 2 AM EDT 09/28/2020 12:17 PM EDT Narrative Resulting Agency Comment Spec In Lab Regino Carolina MD CHEMISTRY ORDERABL ES Performing Organization Address City/[facility]/ZIP Co de Phone Number [facility] [place] [address] * (ABNORMAL) Vitamin A (09/28/2020 11:52 AM EDT) Pathologist [facility] Vitamin A (AUGUST) 31.9(L) 32.5 - 78.0 mcg/dL [facility] Comment: ADDITIONAL INFORMATION This test was developed and its performance characteristics determined by [facility] in a manner consistent with CLIA requirements. This test has not been cleared or approved by the U.S. Food and Drug Administration. Test Performed by: [facility] [address] [place] [address] Senior Supply Chain Analyst: Denzel Angel M.D. Ph.D.; CLIA# [id number] Blood 09/28/2020 11:5 2 AM EDT 09/28/2020 4:35 PM EDT Narrative Resulting Agency Comment Spec In Lab Regino Carolina MD LAB SEND OUT ORDER MAGAN [facility] [place] [address] * Vitamin B12 (09/28/2020 11:52 AM EDT) [facility] Vitamin B12 958 232 - 1,245 pg/mL [facility] Blood 09/28/2020 11:5 2 AM EDT 09/28/2020 12:17 PM EDT Narrative Resulting Agency Comment Spec In Lab Regino Carolina MD CHEMISTRY ORDERABL ES Performing Organization Address [facility]/ZIP Co de Phone Number [facility] [place] [address] * Vitamin D, 25-Hydroxy (09/28/2020 11:52 AM EDT) [facility] Vitamin D Total 25 OH 36 21 - 100 ng/mL [facility] Vit D Interp Sufficient [facility] Blood 09/28/2020 11:5 2 AM EDT 09/28/2020 12:17 PM EDT Narrative Resulting Agency Comment Spec In Lab Regino Carolina MD CHEMISTRY ORDERABL ES Performing Organization Address [facility]/ZIP Co de Phone Number [facility] [place] [address] * Vitamin E (09/28/2020 11:52 AM EDT) Vitamin E 14.1 5.5 - 17.0 mg/L [facility] Comment: ADDITIONAL INFORMATION This test was developed and its performance characteristics determined by [facility] in a manner consistent with CLIA requirements. This test has not been cleared or approved by the U.S. Food and Drug Administration. Test Performed by: [facility] [place] [address] Senior Supply Chain Analyst: Denzel Angel M.D. Ph.D.; CLIA# [id number] Blood 09/28/2020 11:5 2 AM EDT 09/28/2020 1:35 PM EDT Narrative Resulting Agency Comment Spec In Lab Regino Carolina MD LAB SEND OUT ORDER MAGAN Performing Organization Address [facility] Co de Phone Number [facility] [place] [address] * (ABNORMAL) Comprehensive metabolic panel (non-fasting) (09/28/2020 11:52 AM EDT) Glucose 127 65 - 199 mg/dL [facility] Comment:Diabetes: >=200 mg/d L plus symptoms Blood Urea Nitrogen 16 8 - 18 mg/dL [facility] [...] - 107 mmol/L [facility] Carbon Dioxide 25 22 - 31 mmol/L [facility] Anion Gap 10 5 - 15 mmol/L [facility] Calcium 9.0 8.5 - 10.5 mg/dL [facility] Protein, Total 6.5 6.1 - 8.0 gm/dL [facility] Albumin 4.1 3.2 - 5.2 gm/dL [facility] Aspartate Aminotransferase 28 0 - 30 unit/L [facility] Alanine Aminotransferase 27 0 - 30 unit/L [facility] Alkaline Phosphatase 148(H) 35 - 105 unit/L [facility] Bilirubin, Total 0.3 0.2 - 1.3 mg/dL [facility] Est Glomerular Filtration Rate 88 >=60 mL/min/1. 73 m?? [facility] [...] CHEMISTRY ORDERA BLES [facility] [place] [address] * Prealbumin (09/28/2020 11:52 AM EDT) Prealbumin 21 20 - 40 mg/dL [facility] Comment: Prealbumin levels are generally lower in the pediatric population; adult concentrations are usually attained near puberty. Blood 09/28/2020 11:5 2 AM EDT 09/28/2020 12:17 PM EDT Narrative Resulting Agency Comment Spec In Lab Anjelica Jordan APRN CHEMISTRY ORDERA BLES [facility] [place] [address] documented in this encounter Visit Diagnoses Diagnosis IPMN (intraductal papillary mucinous neoplasm) Neoplasm of unspecified nature of digestive system Pancreatic insufficiency Other specified disease of pancreas Other iron deficiency anemia documented in this encounter Care Teams Mixing Machine Feeder Relationship Specialty Start Date End Date Zeny James APRN [address] [place] [address] PCP - General Family Medicine 09/23/19 documented as of this encounter
--- OUTSIDE RECORDS SUMMARY | 2024-05-10 14:52 | XMS_ITS | Encounter Summary ---
Author Organization [facility] [place] [address] Care Team Providers Care Drawbench Operator Name Role Phone VasuZeny santos JESUS ALBERTO Primary Care Provider Encounter Details Date Type Department Care Team (Late Contact Info) Description 05/21/2020 Orders [place] [address] Regino Carolina MD [facility] [place] [address] Other iron deficiency anemia; Pancreatic insufficiency Social [...] 2:00 PM EDT Office Visit Hematology/Oncology at [address] [phone] Jeffery Sanz MD [facility] DR HEMATOLOGY [place] [address] Mary Nails APRN [address] [place] [address] [place] [address] 01/01/2025 2:30 PM EDT Infusion Hematology Oncology at [address] [phone] 01/14/2025 11:00 AM EDT Laboratory Appointment Lab 3[address] [place] [phone] 01/14/2025 1:[address] [place] [address] Regino Carolina MD [facility] [place] [address] 01/14/2025 2:00 PM EDT Office [place] [phone] Regino Carolina MD [facility] [place] [address] Scheduled Orders Name Type Priority Associated Diagnoses Orde r Schedule Comprehensive metabolic panel (non-fasting) Lab Routine Other iron deficiency anemia Expected: 09/22/2020 (Approximate), Expires: 03/24/2021 CBC (with Diff) Lab Routine Other iron deficiency anemia Expected: 09/22/2020 (Approximate), Expires: 03/24/2021 documented as of this encounter Results * Vitamin E (09/28/2020 11:52 AM EDT) [facility] Vitamin E 14.1 5.5 - 17.0 mg/L [facility] Comment: ADDITIONAL INFORMATION This test was developed and its performance characteristics determined by [facility] in a manner consistent with CLIA requirements. This test has not been cleared or approved by the U.S. Food and Drug Administration. Test Performed by: [facility] [address] [place] [address] Bull Gang Worker: Denzel Angel M.D. Ph.D.; CLIA# [id number] Blood 09/28/2020 11:5 2 AM EDT 09/28/2020 1:35 PM EDT Narrative Resulting Agency Comment Spec In Lab Regino Carolina MD LAB SEND OUT ORDER MAGAN Performing Organization Address [facility]/ZIP Co de Phone Number [facility] [place] [address] * Vitamin D, 25-Hydroxy (09/28/2020 11:52 AM EDT) Vitamin D Total 25 OH 36 21 - 100 ng/mL [facility] Vit D Interp Sufficient [facility] Blood 09/28/2020 11:5 2 AM EDT 09/28/2020 12:17 PM EDT Narrative Resulting Agency Comment Spec In Lab Regino Carolina MD CHEMISTRY ORDERABL ES Performing Organization Address [facility] Co de Phone Number [facility] [place] [address] * Vitamin B12 (09/28/2020 11:52 AM EDT) Vitamin B12 958 232 - 1,245 pg/mL [facility] Blood 09/28/2020 11:5 2 AM EDT 09/28/2020 12:17 PM EDT Narrative Resulting Agency Comment Spec In Lab Regino Carolina MD CHEMISTRY ORDERABL ES Performing Organization Address [facility] Co de Phone Number [facility] [place] [address] * (ABNORMAL) Vitamin A (09/28/2020 11:52 AM EDT) Vitamin A (AUGUST) 31.9(L) 32.5 - 78.0 mcg/dL [facility] Comment: ADDITIONAL INFORMATION This test was developed and its performance characteristics determined by [facility] in a manner consistent with CLIA requirements. This test has not been cleared or approved by the U.S. Food and Drug Administration. Test Performed by: [facility] [address] [place] [address] Bull Gang Worker: Denzel Angel M.D. Ph.D.; CLIA# [id number] Blood 09/28/2020 11:5 2 AM EDT 09/28/2020 4:35 PM EDT Narrative Resulting Agency Comment Spec In Lab Regino Carolina MD LAB SEND OUT ORDER MAGAN Performing Organization Address [facility] Co de Phone Number [facility] [place] [address] * (ABNORMAL) Iron and TIBC (09/28/2020 11:52 AM EDT) Iron 63 30 - 150 mcg/dL [facility] TIBC 342 250 - 450 mcg/dL [facility] Iron Saturation 18(L) 20 - 50 % [facility] Blood 09/28/2020 11:5 2 AM EDT 09/28/2020 12:17 PM EDT Narrative Resulting Agency Comment Spec In Lab Regino Carolina MD CHEMISTRY ORDERABL ES Performing Organization Address [facility] Co de Phone Number [facility] [place] [address] * (ABNORMAL) Ferritin (09/28/2020 11:52 AM EDT) Ferritin 19(L) 30 - 400 ng/mL [facility] Comment: Pediatric reference ranges not verified at [facility], interpret with caution. Reference ranges for females greater than 50 years of age approach values for men, i.e., 30-400 ng/mL. Blood 09/28/2020 11:5 2 AM EDT 09/28/2020 12:17 PM EDT Narrative Resulting Agency Comment Spec In Lab Regino Carolina MD CHEMISTRY ORDERABL ES [facility] [place] [address] documented in this encounter Visit Diagnoses Diagnosis Other iron deficiency anemia Pancreatic insufficiency Other specified disease of pancreas documented in this encounter Care Teams Drawbench Operator Relationship Specialty Start Date End Date Zeny James APRN [address] [place] [address] PCP - General Family Medicine 09/23/19 documented as of this encounter
--- OUTSIDE RECORDS SUMMARY | 2024-05-10 14:52 | XMS_ITS | Encounter Summary ---
[place] [address] Care Team Providers Care Regulatory Affairs Intern Name Role Phone Zeny James APRN Primary Care Provider Reason for Visit * Reason Comments Medication Refill Encounter Details Date Type Department Care Team (Late st Contact Info) Description 12/08/2020 Refill [place]ology [place] [address] Roosevelt Dueñas MD Malignant neoplasm of upper-outer [...] 12/08/2020 10:07 AM EDT Received request via [facility] for refill of anastrozole. Per review of medical record- started mid Jan 2020 Last prescribed 12/2019 Script prepared and sent to provider for review, signature and escribe. documented in this encounter Plan of Treatment Upcoming Encounters Date Type Department Care Team (Late st Contact Info) Description 01/01/2025 2:00 PM EDT Office Visit Hematology/Oncology at [address] [phone] Jeffery Sanz MD [facility] DR HEMATOLOGY [place] [address] Mary Nails APRN [address] [place] [address] DR MEDICAL ONCOLOGY [place], [place] [id number] 01/01/2025 2:30 PM EDT Infusion Hematology Oncology at [address] [phone] 01/14/2025 11:00 AM EDT Laboratory Appointment Lab [address] [address] 01/14/2025 1:[address] [place] [address] Regino Carolina MD [facility] [place] [address] 01/14/2025 2:00 PM EDT Office [place] [address] Regino Carolina MD [facility] [place] [address] documented as of this encounter Visit Diagnoses Diagnosis Malignant neoplasm of upper-outer quadrant of left breast in female, estrogen receptor positive documented in this encounter Care Teams Regulatory Affairs Intern Relationship Specialty Start Date End Date Erika JESUS ALBERTO Moura [facility] [address] [place] [address] PCP - General Family Medicine 09/23/19 documented as of this encounter
--- OUTSIDE RECORDS SUMMARY | 2024-05-10 14:54 | XMS_ITS | Encounter Summary ---
Author Organization [facility] [place] [address] Care Team Providers Care Drilling Foreman Name Role Phone Zeny James APRN Primary Care Provider Reason for Referral * Consultation (Routine) - Closed Specialty Diagnoses / Procedures Referred By Nir potts Referred To Contact Endocrinology Diagnoses Pre-diabetes Larry Longo MD [facility] [place] [address] [facility] Endocrinology [address] [place] [address] Referral ID Status Reason Start Date Expiration Date V isits Requested Visits Authorized [id number] Closed Specialty Service Requested 04/11/2020 04/11/2021 1 1 Reason for Visit * Auth/Cert Specialty Diagnoses / Procedures Referred By Nir potts Referred To Contact Diagnoses IPMN Procedures PRO PART REMV PANC, PROX+PART DUOD+ANAST @PANCREATECTOMY, WHIPPLE TYPE WITH PANCREATOJEJUNOSTOMY (WRVU 52.79) MODIFIER ROBOT,DAVINCI XI Referral ID Status Reason Start Date Expiration Date Visits Re quested Visits Authorized [id number] 1 1 Encounter Details Date Type Department Care Team (Late st Contact Info) Description 03/23/2020 5:51 AM EST - 04/11/2020 4:19 PM EST Hospital Encounter 2 [place] [address] Davian Carolina MD [facility] [place] [address] IPMN (intraductal papillary mucinous neoplasm); Pre-diabetes Discharge [...] Abel is a 74 year woman from [place], [place]. She presentedto [facility] ED on 2019 with epigastric abdominal [...] of pancreatic duct/cyst fluid cytopathology per Acc# [id number] showed neoplastic Cells Present. Abundant macrophages, mixed leukocytes present and a single group of bland-appearing columnar cells. ??Cell block was examined. Note: The fluid CEA level is consistent with neoplastic process. ?? 11/25/2019 surgical oncology consult. Maricruz was seen for surgery consultation. She was by herself. She described the episode that brought her to the ED at [facility] as the first time she is [...] ROBOT,STEPHANIE XI @OMENTAL FLAP, INTRA-ABDOMINAL (WRVU 6.54) Operative [...] post-operative day 19. Hospital Course: POD 0 12/7: To OR for robotic ROEL Upton post-op. [...] to: Home VNA: Yes Name of facility: [facility]. Contact information: PHONE: [phone] Discharge Conditions/Prognosis: Stable Discharge Medications: The following [...] medications with new dosing Dose Details * hnjpoy-ljdledcn-utrrtca DR 24,000-76,000 -120,000 unit Cpdr Commonly known as: Creon Take 1-2 capsules by mouth 3 times daily (with meals). With Meals: Take 1-2 capsules by mouth. WithSnacks: Take 1 capsule by mouth. What changed: See the new instructions. 1-2 capsule Quantity: 270 capsule Refills: 3 * ybzemi-rjksvbur-rvbgiqz DR 24,000-76,000 -120,000 unit Cpdr Commonly known [...] [place] 04/21/2020 2:30 PM Davian Carolina MD [facility] SURG [facility] 04/21/2020 2:[address] [facility] SURG [facility] Outpatient Services/Studies: CBC (with Diff) Standing Status: [...] AND/OR HOSPICE SERVICES) PATIENT'S LOCATION: Linda Abel [address] [place] [id number] [place] [phone] Bottom Cager's Name: self In discussion with the attending physician, it is certified that this patient is under their care and that they, or a Nurse Practitioner,Clinical Nurse specialist or Physician Plastic Products Sales Representative who is working directly with them, had [...] andblood sugar monitoring. HOME HEALTH CARE AGENCY: [facility]. PHONE: [phone] FAX: [phone] Start of care: 24-48hrs after discharge FOR [...] obtained from this patient's PCP: Zeny James, JESUS ALBERTO [address] / [place] [id number] All VNA agencies which cover the area of patient's residence have been reviewed, either verbally kehinde writing, and patient/family have chosen the home health care agency noted Question Response Notes Agency name and contact information [facility] Patient location post discharge Home What services are requested Registered Nurse Start date 04/01/2020 Responsible MD post discharge contact info PCP and Dr. Carolina Referral for Home TPN Order Comments: Adult Home TPN Orders: Home infusion company: Linda Abel [address] [facility] [address] DAVIAN CAROLINA Diagnosis requiring TPN: IPMN Diabetic: [...] Question Response Notes Vendor / contact information [facility] Patient location post discharge home Service requested TPN Instructions Given to Patient at Discharge:. An After Visit Summary was printed and given to the patient. Patient Instructions [facility] Department of General Surgery Discharge Instructions [...] with the Surgery nurses. The number is [phone]. - During the night or weekends call the [facility] substation operator conversion at [phone] and ask to speak to the surgery resident industrial relations representative for general surgery. Please note: Your surgeon may not be Senior Systems Programmer, especially during the night or on weekends, so be ready to describe yourself and your surgery when you call. Follow up appointments: Future Appointments Date Time Provider Department Center 04/21/2020 1:30 PM LAB, THREE L Lab 3L [facility]INA [place] 04/21/2020 2:30 PM Davian Carolina MD [facility] SURG [facility] 04/21/2020 2:[address] [facility] SURG [facility] [x] Follow-up appointment with General Surgery has already been scheduled [] A request for a follow-up appointment has been made and you should receive information via phone/mail in the next week. If you do not hear anything, please call the clinic at [phone] to confirm or reschedule. - A follow-up [...] please call the General Surgery Clinic nurses [phone] for prior authorizations assistance General Instructions Upper [...] the day after the procedure, use an rrrl-wgu-thdlojw spray to numb your throat. Sucking on [...] occurs, please contact your Doctor. Please call [phone] before 8pm Mon-Fri with problems, questions or concerns. If you call after 8pm or on weekends, call the Hospital at [phone] and ask to speak to the Sales Expert Home Theater industrial relations representative and the substation operator conversion will contact that person for you. When should you call for help? Call [phone] anytime you think you may need emergency [...] any problems. Where can you learn more? [facility] View your After Visit Summary and more online at [email or web address] If you would like to provide [...] cost to you. Content Version: 12.2 ?? [phone] [employer]. Care instructions adapted under license by [facility]. If you have questions about a medical condition or this instruction, always ask your healthcare professional. [employer] disclaims any warranty or liability for your [...] questions you can call our clinic at [phone] Treatment of Low Blood Sugar (Hypoglycemia) If [...] Zeny James APRN Signed: Larry Longo MD [facility] Surgical Oncology Service Team Pager #[phone] 04/11/2020 6:07 PM documented in this encounter [...] the day after the procedure, use an ubpo-mkp-tgaqukc spray to numb your throat. Sucking on [...] occurs, please contact your Doctor. Please call [phone] before 8pm Mon-Fri with problems, questions or concerns. If you call after 8pm or on weekends, call the Hospital at [phone] and ask to speak to the Sales Expert Home [employer] industrial relations representative and the substation operator conversion will contact that person for you. When should you call for help? Call [phone] anytime you think you may need emergency [...] any problems. Where can you learn more? [facility] View your After Visit Summary and more online at [email or web address] If you would like to provide feedback about your hospital experience, please call the Office of Patient and Family Relations at . If you have received this After Visit Summary in error, please immediately return it in person to the department, or notify the [facility] Privacy Office by calling toll free at between the hours of 8AM and 5PM to arrange for our retrieval of the documents at no cost to you. Content Version: 12.2 ?? [phone] [employer]. Care instructions adapted under license by [facility]. If you have questions about a medical condition or this instruction, always ask your healthcare professional. [employer] disclaims any warranty or liability for your [...] questions you can call our clinic at [phone] Treatment of Low Blood Sugar (Hypoglycemia) If [...] Longo MD - 03/25/2020 2:04 PM EST [facility] Department of General Surgery Discharge Instructions [...] with the Surgery nurses. The number is [phone]. - During the night or weekends call the [facility] substation operator conversion at [phone] and ask to speak to the surgery resident industrial relations representative for general surgery. Please note: Your surgeon may not be Senior Systems Programmer, especially during the night or on weekends, so be ready to describe yourself and your surgery when you call. Follow up appointments: Future Appointments Date Time Provider Department Center 04/21/2020 1:30 PM IKE, THREE L Lab 3L [place] 04/21/2020 2:30 PM Davian Carolina MD [facility] SURG [facility] 04/21/2020 2:[address] [facility] SURG [facility] [x] Follow-up appointment with General Surgery has already been scheduled [] A request for a follow-up appointment has been made and you should receive information via phone/mail in the next week. If you do not hear anything, please call the clinic at [phone] to confirm or reschedule. - A follow-up appointment has been made for you with your Primary Care Provider, Zeyn James APRN, on Monday, April 13, 2020 at 10:40am. 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 Please bring a log of your blood pressures and your blood sugars to this appointment. If you need a prior authorization, please call the General Surgery Clinic nurses [phone] for prior authorizations assistance documented in this encounter Medications at Time of Discharge Medication Sig Dispensed Refills Start Date End Date Blood-Glucose Meter Misc 1 Application by [facility].(Non-Drug; Combo Route) route 3 times daily (before [...] (E.C.) Take 81 mg by mouth daily. hwbsuk-ukahrmnm-feud ase DR (Creon 24) 24,000-76,000 -120,000 unit [...] every night 10 mL 12 04/11/2020 05/19/2020 utrrtq-cjynzbqc-lclx ase DR (Creon) 24,000-76,000 -120,000 unit Capsule, Delayed Release(E.C.) Take 1-2 capsules by mouth 3 times daily (with meals). With Meals: Take 1-2 capsules by mouth. With Snacks: Take 1 capsule by mouth. 270 capsule 3 03/31/2020 09/07/2020 CALCIUM CARBONATE-VITAMIN D3 ORAL Take 1 tablet by mouth daily. 01/19/2023 fluticasone propionate (FLONASE) 50 mcg/actuation [place], Suspension 1 spray by Each Nare route daily as needed. 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 Start mid January 2020. 90 tablet 3 01/09/2020 12/08/2020 documented as of this encounter Progress Notes * Alanna Kaplan, RN - 04/11/2020 3:46 PM EST Reviewed AVS; pt returned verbalization of discharge instructions. New Rx sent electronically to pt's home pharmacy.Patient left [facility] in a wheelchair accompanied by 2 [facility] staff. * Victoria Calle RN - 04/11/2020 10:13 AM EST Willem Mukherjee and care team (, RD) working on arranging home DC today with TPN and with [facility] home insurance agent to assist. Orders updated. JORGE bae coordinating. Son Roberto Carlos to transport home and assist at DC. Victoria Calle RN Pager [phone] * Lora Berg RD - 04/11/2020 10:00 [...] to discuss plan with provider Team pager #[phone]. Nutrition Support: TPN Formula for Discharge (Show up to 1 orders; newest on the left.) Start date and time 04/11/2020 1800 Adult TPN [[id number]] Order Status Active Macro Ingredients amino acid 15% no.5 (ClinisoL) 110 g dextrose 70% 118 g Electrolytes sodium phosphate 48 mmol potassium chloride 100 mEq sodium chloride 210 mEq Additives trace elements Zn-Cu-Mn-Se 1 mL ascorbic acid (vitamin C) 100 mg Vit V8-A6-A7-B5-B6 (B Complex) 1 mL zinc sulfate 10 [...] 1800 04/09/2020 1800 04/08/2020 1800 Adult TPN [[id number]] TPN Adult [[id number]] TPN Adult [[id number]] Order Status Active Active Last Admin New Bag at 04/10/2020 1759 by Wendy Ruiz RN New Bag at 04/08/2020 1722 by Inez Lan RN Medications insulin regular human 8 Units 8 Units 8 Units Additives trace elements Zn-Cu-Mn-Se 1 mL 1 mL 1 mL ascorbic acid (vitamin C) 100 mg 100 mg 100 mg Vit M1-S8-E3-B5-B6 (B Complex) 1 mL 1 mL 1 [...] encounter: 53.3 kg (117 lb 9.6 oz). [place] Body Weight: 50-55 kg Usual Body Weight: [...] (NFPE): Not performed Protein-calorie Malnutrition: Not identified (Vadim, JPEN J Parenteral Enteral Nutr. 2011; 36(3): 273-83) Nutrition to continue to follow up while inpatient. LORA BERG RD Pager #:[phone] * Larry Longo MD - 04/11/2020 8:18 AM EST Surgical Oncology Inpatient Progress Note Patient Name: Linda MERAZ; Age: 6 1945; 74 y.o. Room/Bed: [address] [place] [address] Today's Date: 04/11/20 ID: Linda Abel is [...] Longo MD Surgical Oncology Service Team Pager #[phone] 04/11/20 8:18 AM * Larry Longo MD - 04/10/2020 7:59 AM EST Surgical Oncology Inpatient Progress Note Patient Name: Linda MERAZ; Age: 6 1945; 74 y.o. 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 Pt was sleeping and I will visit an other time. Assessment: Intervention and Outcome: Follow-up: Time in Direct Care: Duke Tidwell 04/09/2020 * Alesha Casillas RN - 04/09/2020 12:54 PM EST OFFICE OF CARE MANAGEMENT [facility] Follow-up Note Alesha Casillas RN reviewed record and discussed patient with Care Team. Patient plan of care discussed in multidisciplinary rounds and assessment for continuing care and discharge needs. Diagnosis: IPMN (intraductal papillary mucinous neoplasm) LOS Hospital: 17 days INSURANCE: Payor: MEDICARE / Plan: MEDICARE PART A & B / Product Type: *No Product type* / SECONDARY INSURANCE: [facility] DECISION MAKER: Attempt Cardiopulmonary Resuscitation - Inpatient <no information> Patient continues to require hospitalization. Per team, patient requires inpatient status r/t increasing diet, TPN and c-diff pending results. Discharge date planned for 04/11 if medically ready. Dirk will be here around 1pm and will need a teach with patient. Aury from [facility] will see patient this afternoon and arrange another teach on Monday with patient and son around 1-2pm. [facility] will confirm [facility] will see patient Monday afternoon to complete third teach. Patient understands and has agreed to learn to self administer her TPN. Referred Roberto Carlos from [employer] to see patient as wellfor support. Aury from [facility] will call son and set up today. Friend Inez, Nurse [phone] next to patient will be there to check in as well as a resource for patient but is not able to be available all the time. Son Roberto Carlos has committed to staying with patient x2 weeks and then friend Luba will stay with patient. Asked team to put order in to request to single lumen before discharge. Current Referral in place: [facility] for RN, PT to eval for needs in home, OT Transportation: Noé Azevedo will drive patient home via private vehicle when medically ready. Support: Son, friends [facility] to follow with team and family to [...] Body Fluid Culture, Aerobic & Anaerobic Bile [[id number]] Collected: 03/23/20 1346 Lab Status: Final result Specimen: Bile Updated: 03/27/20 1333 Body Fluid Culture, Aerobic [[id number]] Collected: 03/23/20 1346 Lab Status: Final result Specimen: Bile Updated: 03/27/20 1333 Body Fluid Culture No growth Gram Stain -- Cytocentrifuge Gram Stain performed Neutrophils seen No microorganisms seen. Anaerobic Culture [[id number]] Collected: 03/23/20 1346 Lab Status: Final result Specimen: Bile Updated: 03/27/20 1117 Anaerobic Culture No anaerobic organisms isolated COVID-19 PCR [[id number]] Collected: 03/20/20 1057 Lab Status: Final result [...] diagnosis of COVID-19 is performed using the [employer] m SARS-CoV-2 Assay as authorized by the FDA Emergency Use Authorization (EUA). This EUA assay is intended for In-vitro Diagnostic (IVD) use with respiratory specimens such as nasopharyngeal swabs collected from individuals during the acute phase of infection. This assay is performed based on the instructions for use provided by [employer] and additional guidance provided by CDC and FDA. 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 female with [...] clinical changes occur or newquestions arise, page [phone]. Case discussed with Dr. Blas Attending staff [...] 1800 04/08/2020 1800 04/07/2020 1800 TPN Adult [[id number]] TPN Adult [[id number]] TPN Adult [[id number]] Order Status Active Active Last Admin New Bag at 04/08/2020 1722 by Inez Lan RN New Bag at 04/07/2020 1901 by Sanjuanita Mercado RN Medications insulin regular human 8 Units 8 Units 8 Units Additives trace elements Zn-Cu-Mn-Se 1 mL 1 mL 1 mL ascorbic acid (vitamin C) 100 mg 100 mg 100 mg Vit C0-V8-S4-B5-B6 (B Complex) 1 mL 1 mL 1 [...] encounter: 53.3 kg (117 lb 9.6 oz). [place] Body Weight: 50 kg Usual Body Weight: [...] up while inpatient. JOSUE LORA RD Pager #[phone] * Katie Santamaria APRN - 04/09/2020 10:37 [...] for 118 G dextrose) Katie Santamaria APRN [facility] Endocrinology Diabetes Management Pager [phone] * Larry Longo MD - 04/09/2020 9:21 AM EST Surgical Oncology Inpatient Progress Note Patient Name: Linda MERAZ; Age: 6 1945; 74 y.o. Room/Bed: [address] [place], [place] [address] Today's Date: 04/09/20 ID: Linda Abel is [...] 26 03/25: 22 1210: 15 1211: 327 12: 12 [...] status, Attempt Cardiopulmonary Resuscitation - Inpatient Signed: Lrary Longo MD Surgical Oncology Service Team Pager #[phone] 04/09/20 9:21 AM * Josue Lora, RD - 04/08/2020 10:47 AM EST Nutrition [...] 1800 04/07/2020 1800 04/06/2020 1800 TPN Adult [[id number]] TPN Adult [[id number]] TPN Adult [[id number]] Order Status Active Active Last Admin New Bag at 04/07/2020 1901 by Sanjuanita Mercado RN New Bag at 04/06/2020 1824 by Maria Esther Blancas RN Medications insulin regular human 8 Units 8 Units 8 Units Additives trace elements Zn-Cu-Mn-Se 1 mL 1 mL 1 mL ascorbic acid (vitamin C) 100 mg 100 mg 100 mg Vit G8-Z9-I5-B5-B6 (B Complex) 1 mL 1 mL 1 [...] encounter: 53.3 kg (117 lb 9.6 oz). [place] Body Weight: 50 kg Usual Body Weight: [...] up while inpatient. JOSUE LORA RD Pager #[phone] * Davian Carolina MD - 04/08/2020 8:18 AM EST Surgical Oncology Inpatient Progress Note Patient Name: Linda MERAZ; Age: 6 1945; 74 y.o. Room/Bed: [address] [place], [place] [address] Today's Date: 04/08/20 ID: Linda Abel is [...] POD 0 03/23: To OR for robotic WhippleROEL post-op. Note [...] 27.3* PLATELET 477* 453* 445* Recent Labs 04/08/202904/07/2034904/06/20 0130 NA 132* 134* 137 K 3.5 3.6 3.6 CL 101 101 102 CO2 24 24 26 BUN 15 16 16 CREATININE 0.29* 0.34* 0.42* GLUCOSE 147 166 180 CALCIUM 7.7* 7.7* 7.7* MAGNESIUM 0.69 0.82 0.88 PHOS 3.1 3.3 3.3 LFT's No results found for: ALKPHOS, AST, ALBUMIN, BILIDIR, BILITOT, ALT, PROT KHRIS Amylase: 128: 26 12/9: 22 12/10: 15 12/11: 327 [...] Mccormack MD Surgical Oncology Service Team Pager #[phone] 04/08/20 8:18 AM Surgery Attending Addendum I [...] she does not meet criteria for a detention facility. Jennifer Carolina MD 04/08/2020 10:36 AM [...] Body Fluid Culture, Aerobic & Anaerobic Bile [[id number]] Collected: 03/23/20 134 Lab Status: Final result Specimen: Bile Updated: 03/27/20 1333 Body Fluid Culture, Aerobic [[id number]] Collected: 03/23/20 134 Lab Status: Final result Specimen: Bile Updated: 03/27/20 1333 Body Fluid Culture No growth Gram Stain -- Cytocentrifuge Gram Stain performed Neutrophils seen No microorganisms seen. Anaerobic Culture [[id number]] Collected: 03/23/20 134 Lab Status: Final result Specimen: Bile Updated: 03/27/20 1117 Anaerobic Culture No anaerobic organisms isolated COVID-19 PCR [[id number]] Collected: 03/20/20 1057 Lab Status: Final result [...] diagnosis of COVID-19 is performed using the [employer] m SARS-CoV-2 Assay as authorized by the FDA Emergency Use Authorization (EUA). This EUA assay is intended for In-vitro Diagnostic (IVD) use with respiratory specimens such as nasopharyngeal swabs collected from individuals during the acute phase of infection. This assay is performed based on the instructions for use provided by [employer] and additional guidance provided by CDC and FDA. 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 Case discussed with Dr. Blas * Alesha Casillas RN - 04/07/2020 3:07 PM EST OFFICE OF CARE MANAGEMENT [facility] Follow-up Note Alesha Casillas RN reviewed record and discussed patient with Care Team. Patient plan of care discussed in multidisciplinary rounds and assessment for continuing care and discharge needs. Diagnosis: IPMN (intraductal papillary mucinous neoplasm) LOS Hospital: 15 days INSURANCE: Payor: MEDICARE / Plan: MEDICARE PART A & B / Product Type: *No Product type* / SECONDARY INSURANCE: [facility] [place] DECISION MAKER: Attempt Cardiopulmonary Resuscitation [...] team. Current Referral in place: Demetrio Cervantes, [facility], [place], [facility] Transportation: Son will drive patient home via private vehicle when medically ready. Support: Son Tenter to follow with team and family to [...] was able to discuss plan with provider [id number]. Nutrition Support: TPN Medication Recent History (Show up to 3 orders; newest on the left. Changes between the two most recent orders are indicated.) Start date and time 04/07/2020 1800 04/06/2020 1800 04/03/2020 1800 TPN Adult [[id number]] TPN Adult [[id number]] TPN Adult [[id number]] Order Status Active Active Last Admin New Bag at 04/06/20201823 by Maria Esther Blancas RN New Bag at 04/05/20201819 by Mervin Grimes, RN Medications insulin regular human 8 Units 8 Units 6 Units Additives trace elements Zn-Cu-Mn-Se 1 mL 1 mL 1 mL ascorbic acid (vitamin C) 100 mg 100 mg -- Vit U2-R1-G4-B5-B6 (B Complex) 1 mL 1 mL 1 [...] encounter: 53.3 kg (117 lb 9.6 oz). [place] Body Weight: 50 kg Usual Body Weight: [...] up while inpatient. 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 She [...] asneeded. ??? fluticasone propionate (FLONASE) 50 mcg/actuation [place], Suspension 1 spray by Each Nare route [...] MD Internal Medicine, PGY3 BETHANY Pager # [phone] Attending Staff New Consult Documentation We have been asked to see this patient in consultation by Dr. Carolina from Surgery-Oncology. Please see Dr. 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 DIEGO BLAS MD 04/08/2020 * Alesha Casillas RN - 04/07/2020 10:12 AM EST Based on discussions with the multi-disciplinary healthcare team, the patient would benefit from detention level of care at discharge. ?? I have met with the patient to discuss discharge planning needs. I have provided the [facility], Office of Care Management letter from the Poultry Grader pertaining to rehab referrals. I have also provided a letter describing our affiliations within the [facility] and educatedthem about their right to choose where referrals are. ?? Provided patient with CMS Star Quality Rating for SNF, LTAC and/or [...] patient have requested referrals to: 1. [facility] (Swing) ([facility] [address] [place] [address] ?? PHONE: [phone] FAX: [phone] 2. [facility] (Swing) ([facility]) [address] [place] [address] ?? PHONE: [phone] FAX: [phone] 3. [facility] ([facility]) ([facility]) [address] [place] [address] ?? PHONE: [phone] FAX: [phone] ?? Expected date of discharge: 04/10 Note routed to Bobbin Painter who will communicate referrals to facilities and provide any required information. * Edwardo Mccormack MD - 04/07/2020 7:42 AM EST Surgical Oncology Inpatient Progress Note Patient Name: Linda MERAZ; Age: 6 1945; 74 y.o. Room/Bed: [address] [place] [address] Today's Date: 04/07/20 ID: Linda Abel is [...] 26 12: 22 1210: 15 1211: 327 03/28: 12 [...] Mccormack MD Surgical Oncology Service Team Pager #[phone] 04/07/20 7:42 AM * Davian Carolina MD - 04/06/2020 1:18 PM EST Surgical Oncology Inpatient Progress Note Patient Name: Linda MERAZ; Age: 6 1945; 74 y.o. Room/Bed: [address] [place], [place] [address] Today's Date: 04/06/20 ID: Linda Abel is [...] and enteric tube Assessment / Plan: Linda Maggie is a 74 y.o. female with PMH [...] Mccormack MD Surgical Oncology Service Team Pager #[phone] 04/06/20 1:18 PM Surgery attending addendum I [...] and I would not exactly call the [id number]. I called and spoke to her son Roberto Carlos who is down in [place] and I agree that at this point the best option for Maricruz given that she will need to be on TPN will be for her to go to a swing bed type facility either at [facility] or at [facility]. We had previously hoped that she would be able to go homeand no clear was working on VNA with [facility] for the TPN but basically given the remote location where she lives up in [place], [place] and the lack of support she essentially will not beable to go home with TPN and I think we need to start really considering the swing bed options as mentioned above at [facility] or at [facility]. This assumes all goes well with her NG tube out. We alsomay need to reengage medicine to help with her hypertension as this is been quite a refractory issue during this hospitalization and we need their help. Jennifer Carolina MD 04/06/2020 5:29 PM This note was created using [employer] voice recognition software. * Josue Lora, RD - 04/06/2020 11:16 AM EST Nutrition [...] 1800 04/03/2020 1800 03/27/2020 1800 TPN Adult [[id number]] TPN Adult [[id number]] TPN Adult [[id number]] Order Status Active Active Discontinued Last Admin New Bag at 04/05/2020 1820 by Mervin Grimes RN New Bag at 03/29/2020 1949 by Ness Cummings RN Medications insulin regular human 8 Units 6 Units -- Additives trace elements Zn-Cu-Mn-Se 1 mL 1 mL 1 mL ascorbic acid (vitamin C) 100 mg -- -- Vit U8-T9-J0-B5-B6 (B Complex) 1 mL 1 mL 1 [...] encounter: 53.3 kg (117 lb 9.6 oz). [place] Body Weight: 50 kg Usual Body Weight: [...] Protein-calorie Malnutrition: Not identified (Chencho et al, CHRIS J Parenteral Enteral Nutr. 2012 August; 36(3): 273-83) Nutrition to continue to follow up while inpatient. JOSUE LORA RD Pager #[phone] * Alesha Casillas RN - 04/06/2020 10:24 AM EST OFFICE OF CARE MANAGEMENT Tenter Follow-up Note Alesha Casillas RN reviewed record and discussed patient with Care Team. Patient plan of care discussed in multidisciplinary rounds and assessment for continuing care and discharge needs. Diagnosis: IPMN (intraductal papillary mucinous neoplasm) LOS Hospital: 14 days INSURANCE: Payor: MEDICARE / Plan: MEDICARE PART A & B / Product Type: *No Product type* / SECONDARY INSURANCE: [facility] DECISION MAKER: Attempt Cardiopulmonary Resuscitation - Inpatient <no information> Patient continues to require hospitalization. Per team, patient requires inpatient status r/t dc N/G tube today. On sips and chips. Discharge date planned for 04/08 if medically ready. Current Referral in place: [facility] for RN. Added PT, OT. [facility] routed for TPN supportif needed. Transportation: Son will drive patient home via private vehicle when medically ready. Support: Son Tenter to follow with team and family to [...] greater distances with no seated rest break. EMPLOYMENT CONSULTANT coordinated with OT- patient meeting all OT [...] Total Evaluation Minutes, Occupational Therapy: 45 Pager: [phone] PEPITO Kirk Plan updated by OT to monitor. The entirety of this note still belongs to the original author, PEPITO Amador. Meera Medina OT Occupational Therapy Rehabilitation Department * Katie Santamaria, RESPIRATORY MEDICINE PHYSICIAN - 04/06/2020 9:35 AM EST Images from [...] 1:15 I:C ratio ?? Katie Santamaria APRN [facility] Endocrinology Diabetes Management Pager [phone] * Davian Carolina MD - 04/06/2020 7:09 [...] 1945; 74 y.o. Room/Bed: 207/-A Today's Date: 04/05/20 ID: Linda Abel is [...] PROT KHRIS Amylase: 03/24: 26 9: 22 12: 15 11: 327 03/28: 12 Micro: Bile duct cx [...] Murillo MD Surgical Oncology Service Team Pager #[phone] 04/05/20 3:52 PM * Davian Carolina MD - 04/04/2020 10:14 AM EST Surgical Oncology Inpatient Progress Note Patient Name: Linda MERAZ; Age: 6 1945; 74 y.o. Room[facility]Bed: [facility]note 2[facility]207-A Today's Date: 04/04/20 ID: Linda Abel is [...] lb 9.6 oz) Labs: Recent Labs 04/04/20 03204/03/20 0250 04/02/20 0140 WBC 20.5* 18.1* 16.2* HGB 9.1* 10.2* 11.0* HCT 27.1* 30.9* 31.1* PLATELET 367* 380* 351 Recent Labs 04/04/2032504/03/20 0250 04/02/20 1815 04/02/20 0140 04/01/20 1553 [...] Murillo MD Surgical Oncology Service Team Pager #[phone] 04/04/20 10:14 AM Surgery Attending Addendum I [...] her son-Roberto Carlos who is down in [place] to chat about the plan going forward. [...] MD 04/04/2020 This note was created using [employer] voice recognition software. Jennifer Carolina MD * [...] time 04/03/2020 1800 03/27/2020 1800 TPN Adult [[id number]] TPN Adult [[id number]] Order Status Active Discontinued Last Admin New Bag at 03/29/2020 1949 by Ness Cummings, RN Medications insulin regular human 6 Units -- Additives trace elements Zn-Cu-Mn-Se 1 mL 1 mL Vit N7-I1-L1-B5-B6 (B Complex) 1 mL 1 mL zinc [...] encounter: 53.3 kg (117 lb 9.6 oz). [place] Body Weight: 50 kg Usual Body Weight: [...] up while inpatient. JOSUE LORA RD Pager #[phone] * Alesha Casillas RN - 04/03/2020 12:26 PM EST This patient requires infusion therapy for TPN. A letter describing our affiliations was reviewed with them and they were educated about their right to choose where referrals are placed. Request referral to [place], [place] for TPN or . Expected date of discharge: 04/07/2020. Patient will require teaching. Referral routed to the Bobbin Painter for matching with agency/vendor and to provide [...] Total Evaluation Minutes, Occupational Therapy: 15 Pager: [phone] PEPITO Kirk Occupational Therapy Rehabilitation Department * [...] - 1:20 I:C ratio Katie Santamaria APRN [facility] Endocrinology Diabetes Management Pager [phone] 20 minutes of this 35 minute visit [...] MERAZ; Age: 6 1945; 74 y.o. Room/Bed: [address] [place] [address] Today's Date: 04/03/20 ID: Linda Abel is [...] 26 129: 22 1210: 15 12: 327 12: 12 Micro: Bile duct cx [...] Murillo MD Surgical Oncology Service Team Pager #[phone] 04/03/20 7:49 AM * Patricia Jordan PT [...] at a later time. Olayinka BEYER Pager: [phone] * Josue Lora RD - 04/02/2020 12:44 [...] was able to discuss plan with provider 7094. Nutrition Support: TPN Medication Recent History (Show up to 3 orders; newest on the left.) Start date and time 03/27/2020 1800 TPN Adult [[id number]] Order Status Discontinued Last Admin New Bag at 03/29/2020 1949 by Ness Cummings, RN Additives trace elements Zn-Cu-Mn-Se 1 mL Vit P0-E1-O2-B5-B6 (B Complex) 1 mL zinc sulfate 10 [...] encounter: 53.3 kg (117 lb 9.6 oz). [place] Body Weight: 50 kg Usual Body Weight: [...] up while inpatient. JOSUE LORA RD Pager #[phone] * Davian Carolina MD - 04/02/2020 8:15 AM EST Surgical Oncology Inpatient Progress Note Patient Name: Linda MERAZ; Age: 6 1945; 74 y.o. Room[facility]Bed: [facility] Today's Date: 04/02/20 ID: Linda Abel is [...] improvement in n/v Hospital Course: POD 0 03/23: To OR [...] HCTZ, AXR unremarkable, hyponatremia (130) POD 9 12/16: continues to have nausea with a few [...] PLATELET 351 320 252 Recent Labs 04/02/20 01404/01/20 1553 04/01/20 04203/31/20 0636 NA 131* 128* 130* 133* K [...] PROT KHRIS Amylase: 03/24: 26 9: 22 1210: 15 1211: 327 12: 12 [...] Mccormack MD Surgical Oncology Service Team Pager #[phone] 04/02/20 10:58 AM Surgery Attending Addendum I [...] minimal contrast passing downthe efferent limb. See specialty sales representative image below. 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 Patient was not available for visit and I will visit an other time. Assessment: Intervention and Outcome: Follow-up: Time in Direct Care: [facility] 04/01/2020 * Alesha Casillas RN - 04/01/2020 11:17 AM EST OFFICE OF CARE MANAGEMENT Tenter Follow-up Note Alesha Casillas RN reviewed record and discussed patient with Care Team. Patient plan of care discussed in multidisciplinary rounds and assessment for continuing care and discharge needs. Diagnosis: IPMN (intraductal papillary mucinous neoplasm) LOS Hospital: 9 days INSURANCE: Payor: MEDICARE / Plan: MEDICARE PART A & B / Product Type: *No Product type* / SECONDARY INSURANCE: [facility] [place] DECISION MAKER: Attempt Cardiopulmonary Resuscitation - Inpatient <no information> Patient continues to require hospitalization. Per team, patient requires inpatient status r/t nausea, Ct scan, rechecking labs. Discharge date planned for if medically ready. / Current Referral in place: [facility] for RN Transportation: Son will drive patient home via private vehicle when medically ready. Support: Son Tenter to follow with team and family to assist with discharge needs when patient ready for discharge. Alesha Casillas RN Case Management pgr [phone] * Davian Carolina MD - 04/01/2020 9:13 AM EST Surgical Oncology Inpatient Progress Note Patient Name: Linda MERAZ; Age: 6 1945; 74 y.o. Room/Bed: -A Today's Date: 04/01/20 ID: Linda Abel is [...] POD 0 12: To OR for robotic WonROEL post-op. Note intra-operative concern for common hepaticartery [...] HTN overnight with mild hyperglycemia. POD 6 /13: BP continues to be elevated, patient reassured [...] Mccormack MD Surgical Oncology Service Team Pager #[phone] 04/01/20 9:13 AM Surgery attending addendum I [...] 9:34 AM This note was created using [employer]) voice recognition software. * Gina Greer RN - 03/31/2020 2:58 PM EST Diabetes Clinical Nurse Specialist Met with Mrs. Abel to discuss diabetes prevention. Pt was found to have pre-diabetes (HbA1c 5.8%) and is now S/P Whipple on 03/23/20. Encouraged pt to eat a [...] She had a regular diet, tolerated well. Direct Care Counselor to bedside to speak w/ pt. Adequate [...] and ADLs]:?Independent. ?? Surveillance [continuous indirect monitoring]:?? fabio, hourly rounding, room near unit station, NKE [...] after suppository yesterday - BP readings from [facility] have improved significantly SBP 120-140s, [...] Total Evaluation Minutes, Occupational Therapy: 23 Pager: [phone] PEPITO Kirk Occupational Therapy Rehabilitation Department * [...] nutrient intake and support healing ?? Added Belizean yogurt with meals and reviewed foods for [...] encounter: 53.3 kg (117 lb 9.6 oz). [place] Body Weight: 50 kg Usual Body Weight: [...] regime. She states she had poor appetite DIRECTOR ORACLE DATABASE and wonders if some of her elevated A1C DIRECTOR ORACLE DATABASE was due to an unusually higher intake of sweets her family provided as energy conservation foods. She states she has support to choose soft easy to digest foods post DC and was appreciative of review of role of healthy CHO foods for healthy nutrition to support healing. Protein-calorie Malnutrition: Not identified (Vadim, JPEN J Parenteral Enteral Nutr. 2011; 36(3): 273-83) Nutrition to continue to follow up while inpatient JANET GRIMES RD Pager #[phone] * Lisa Villa, DIRECTOR ORACLE DATABASE - 03/31/2020 9:04 AM EST Physical Therapy Note Treatment Number PT: 3 Patient profile: Linda Abel??is a 74 y.o.??female??with [facility] main duct IPMN,??s/p robotic whipple on 03/23 Interval History: decreased eye swelling and decreased crepitus, mental status cleared, ambulating with nursing staff, Social History: Pt lives alone in a multi level home with 5 steps to enter. Son is coming to stay with her, FOS to upstairs bedroom, PICC placed DIRECTOR ORACLE DATABASE pt was independent, drives, feisty* DME: None Precautions/Special Considerations:no BPs RUE, PICC, NGT, NPO, confusion, SCREEN CUTTER AND TRIMMER, Calderón and drains Lapsites, L breast incision [...] of the patient. Time IN / OUT: 3010-7110 Total Evaluation Minutes, Physical Therapy: 16(TEF 1) Lisa Villa PTA Pager: [phone] Physical Therapy Inpatient Rehabilitation Department * Davian Carolina MD - 03/31/2020 7:26 AM EST Surgical Oncology Inpatient Progress Note Patient Name: Linda MERAZ; Age: 6 1945; 74 y.o. Room/Bed: [address] [place] [address] Today's Date: 03/31/20 ID: Linda Abel is [...] BILITOT, ALT, PROT KHRIS Amylase: 128: 26 12/9: 22 1210: 15 12/11: 327 1212: 12 Micro: Bile [...] Mccormack MD Surgical Oncology Service Team Pager #[phone] 03/31/20 7:23 AM Surgery attending addendum I [...] 2:36 PM This note was created using [employer] ([employer]) voice recognition software. * Elma Zacarias MD [...] 11:26 AM EST OFFICE OF CARE MANAGEMENT Tenter Follow-up Note Alesha Casillas RN reviewed record and discussed patient with Care Team. Patient plan of care discussed in multidisciplinary rounds and assessment for continuing care and discharge needs. Diagnosis: IPMN (intraductal papillary mucinous neoplasm) LOS Hospital: 7 days INSURANCE: Payor: MEDICARE / Plan: MEDICARE PART A & B / Product Type: *No Product type* / SECONDARY INSURANCE: [facility] DECISION MAKER: Attempt Cardiopulmonary Resuscitation - Inpatient <no information> Patient continues to require hospitalization. Per team, patient requires inpatient status r/t stopping TPN, diabetes teaching needed and Medicine consult for HTN management. Discharge date planned for 04/01 if medically ready. Current Referral in place: [facility] for RN. Transportation: Son will drive patient home via private vehicle when medically ready. Support: Son Tenter to follow with team and family to assist with discharge needs when patient ready for discharge. Alesha Casillas RN Case Management pgr [phone] * Davian Carolina MD - 03/30/2020 7:05 AM EST Surgical Oncology Inpatient Progress Note Patient Name: Linda MERAZ; Age: 6 1945; 74 y.o. Room/Bed: [address] [place] [address]A Today's Date: 03/30/20 ID: Linda Abel is [...] Mccormack MD Surgical Oncology Service Team Pager #[phone] 03/30/20 7:05 AM Surgery Attending Addendum I [...] morning. Denies pain, managed with scheduled medications. SCREEN CUTTER AND TRIMMER d/c'd. Diet increased to Regular diet, tolerating [...] MERAZ; Age: 6 1945; 74 y.o. Room/Bed: [address] [place] [address]A Today's Date: 03/29/20 ID: Linda Abel is [...] was so tiny and required an interrupted Blumgart-Edbra type hepaticojejunostomy with 5-0 PDS. In testinal [...] med for her); PRNs for >160mmHg Discontinue SCREEN CUTTER AND TRIMMER - transition to PO pain meds. NEURO: [...] Kang MD Surgical Oncology Service Team Pager #[phone] 03/29/20 9:57 AM Surgery Attending Addendum I [...] 12:33 PM This note was created using [employer] ([employer]) voice recognition software. * Raj aKng MD - 03/28/2020 12:50 PM EST KHRIS drain and NGT removed this morning, Patient tolerated well without issue. Nurse updated. Raj Kang MD * Raj Kang MD - 03/28/2020 10:02 AM EST Surgical Oncology Inpatient Progress Note Patient Name: Linda MERAZ; Age: 6 1945; 74 y.o. Room/Bed: [address] [place] [address] Today's Date: 03/28/20 ID: Linda Abel is [...] Recent Labs 03/28/20 0145 03/27/20 0320 03/26/20 014 WBC 6.9 7.6 9.4 HGB 11.3* 11.7 [...] 26 129: 22 1210: 15 12: 327 12: 12 Micro: Bile duct cx [...] Kang MD Surgical Oncology Service Team Pager #[phone] 03/28/20 10:02 AM * Olayinak Ojeda OTA - 03/27/2020 3:05 PM EST [...] Total Evaluation Minutes, Occupational Therapy: 30 Pager: [phone] PEPITO Kirk Occupational Therapy Rehabilitation Department * Davian Carolina MD - 03/27/2020 12:38 PM EST Surgical Oncology Inpatient Progress Note Patient Name: Linda MERAZ; Age: 6 1945; 74 y.o. Room/Bed: [address] [place], [place] [address] Today's Date: 03/27/20 ID: Linda Abel is [...] x3 -Denies Flatus/BM Hospital Course: POD 0 12/7: To OR for robotic Whipple, REOL post-op. Note intra-operative concern for common hepaticartery discoloration (? Pseydoaneurysm); post-op LFTS obtained with mild elevation, trended POD 1 128: Convalesced on 2W. OOB to chair and walked x 1. Some paranoia/disorientation. PICC placed. POD 2 12: Disoriented overnight but redirectable, improved during day. [...] PLATELET 198 168 203 Recent Labs 03/27/20 03203/26/20 0145 03/25/20 0155 03/24/20 1740 NA 139 [...] 5.4 (L) 03/27/2020 KHRIS Amylase: 03/24: 26 03/25: 22 03/26: 15 03/27: 327 Micro: Bile duct cx (03/23): NGTD [...] YE MD Surgical Oncology Service Team Pager #[phone] 03/27/20 12:38 PM Surgery Attending Addendum I [...] was able to discuss plan with provider [id number]. Nutrition Support: TPN Medication Recent History (Show up to 3 orders; newest on the left.) Start date and time 03/27/2020 1800 TPN Adult [[id number]] Order Status Active Additives trace elements Zn-Cu-Mn-Se 1 mL Vit O7-U8-H4-B5-B6 (B Complex) 1 mL zinc sulfate 10 [...] of this encounter: 54.9 kg (121 lb). [place] Body Weight: 50 kg Usual Body Weight: [...] up while inpatient. JOSUE LORA RD Pager #[phone] * Marisa Lance - 03/27/2020 10:20 AM [...] please obtain updated weight. Marisa Lance Pager: [phone] * Alesha Casillas RN - 03/26/2020 12:43 PM EST OFFICE OF CARE MANAGEMENT Tenter Follow-up Note Alesha Casillas RN reviewed record and discussed patient with Care Team. Patient plan of care discussed in multidisciplinary rounds and assessment for continuing care and discharge needs. Diagnosis: IPMN (intraductal papillary mucinous neoplasm) LOS Hospital: 3 days INSURANCE: Payor: MEDICARE / Plan: MEDICARE PART A & B / Product Type: *No Product type* / SECONDARY INSURANCE: [facility] [place] DECISION MAKER: Attempt Cardiopulmonary Resuscitation - Inpatient <no information> Patient continues to require hospitalization. Per team, patient requires inpatient status r/t needing a CTA today. LFT increasing. Discharge date planned for 03/30 if medically ready. Current Referral in place: [facility] for RN Transportation: Son will drive patient home via private vehicle when medically ready. Support: Son Tenter to follow with team and family to assist with discharge needs when patient ready for discharge. Alesha Casillas RN Case Management pgr [phone] * Paty Kenney MD - 03/26/2020 10:00 AM EST Surgical Oncology Inpatient Progress Note Patient Name: Linda MERAZ; Age: 6 1945; 74 y.o. Room/Bed: [address] [place] [address] Today's Date: 03/26/20 ID: Linda Abel is [...] POD 0 12/7: To OR for robotic WhippleROEL post-op. Note [...] 03/26/2020 KHRIS Amylase: 8: 26 129: 22 1210: 15 Micro: Bile [...] Kenney MD Surgical Oncology Service Team Pager #[phone] 03/26/20 10:00 AM * Maria Esther Blancas [...] in the hallway. Pain well controlled with SCREEN CUTTER AND TRIMMER. Not passing gas, no BM, adequate urine [...] robotic whipple current risk factors include: PICC, SCREEN CUTTER AND TRIMMER, acute pain, recent surgery, tubes/drains, and generalizedweakness. [...] Number PT: (P) 2 Patient profile: Linda Maggie??is a 74 y.o.??female??with PMH main duct IPMN,??s/p robotic whipple on 03/23 Interval History: decreased eye swelling and decreased crepitus, mental status cleared, ambulating with nursing staff, Social History: Social History: Pt lives alone in a multi level home with 5 steps to enter. Son is coming to stay with her, FOS to upstairs bedroom, PICC placed DIRECTOR ORACLE DATABASE pt was independent, drives, feisty* DME: None Precautions/Special Considerations:no BPs RUE, PICC, NGT, NPO, confusion, SCREEN CUTTER AND TRIMMER, [place]lerón and drains Lapsites, L breast incision Diet: [...] Pain: comfortable at rest, minimal use of SCREEN CUTTER AND TRIMMER, ?? Vital Signs: SpO2: 95% on 2L, [...] (P) 15 TEF PATRICIA JORDAN, PT Pager: [phone] Physical Therapy Inpatient Rehabilitation Department * Meera Salinas, OT - 03/25/2020 1:58 PM ESTSummary: Patient planning to return home with assist from son, home health follow up Occupational Therapy Evaluation Patient profile: Linda Abel is a 74 y.o. female admitted on 03/23/2020 with [facility] main duct IPMN,??now Post-Op??s/p robotic whipple on [...] day. 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 Precautions/Special Considerations: Fall risk, PICC, NG [...] 59.67% limited in ADL performance per the [facility]. Patient is well below her baseline level [...] and measurable assessment of functional outcome. Pager: [phone] Meera Salinas OT 03/25/2020 Occupational Therapy Rehabilitation Department * Alice Ye Lulu - 03/25/2020 1:33 PM EST Surgical Oncology Inpatient Progress Note Patient Name: Linda MERAZ; Age: 6 1945; 74 y.o. Room/Bed: [address] [place] [address] Today's Date: 03/25/20 ID: Linda Abel is [...] kg (121 lb) Labs: Recent Labs 03/25/20 01503/24/20 0803/23/20 1830 WBC 13.9* 16.3* 23.4* HGB 11.2* 11.7 12.2 HCT 33.5* 37.0 37.9 PLATELET 203 214 275 Recent Labs 03/25/20 01503/24/20 1740 03/24/20 0828 03/23/20 1830 NA 138 [...] Total Protein 5.2 (L) 03/25/2020 KHRIS Amylase: 03/24: 26 12: 22 Micro: Bile duct cx (03/23): NGTD New Imaging: n/a Assessment / Plan: Linda Abel is a 74 y.o. female with PMH breast ca, HTN, pancreatic IPMN, 2Days Post-Op s/p robotic Whipple. Doing well on the floor this AM. Awaiting ROBMaria Eugenia. KHRIS amylase reassuringly low. LFTs are stable [...] YE MD Surgical Oncology Service Team Pager #[phone] 03/25/20 1:33 PM * Beatriz Singh RN [...] MERAZ; Age: 6 1945; 74 y.o. Room/Bed: [address] [place] [address] Today's Date: 03/24/20 ID: Linda Abel is [...] Total Protein 5.1 (L) 03/24/2020 KHRIS Amylase: 03/24: 26 Micro: Bile duct cx (03/23): NGTD New Imaging: n/a Assessment / Plan: Linda Abel is a 74 y.o. female with PMH breast ca, HTN, pancreatic IPMN, 1Day Post-Op s/p robotic Whipple. Doing well on the floor this AM. Awaiting ROBF. KHRIS amylase reassuringly low. Will monitor SQ emphysema, continue to encourage appropriate usage of SCREEN CUTTER AND TRIMMER. Would be good to get OOB today. [...] YE MD Surgical Oncology Service Team Pager #[phone] 03/24/20 9:51 AM Surgery attending addendum I [...] ROBOT,MALLORYI XI @OMENTAL FLAP, INTRA-ABDOMINAL (WRVU 6.54) S: No nausea/vomiting, chest pain, SOB. Pain well controlled, offers no complaints. She reports that she thinks the swelling in her face is improving. She also reports pain that is improved when she pushes her SCREEN CUTTER AND TRIMMER button. O: Temp: [36.3 ??C (97.3 ??F)-37 [...] Range Ab Screen Interp Negative Expires at 6119 on: 03/26/2020 ABORH Recheck Status Result Value Ref Range ABORH Type Recheck Completed Surgical Pathology Report Result Value Ref Range Surgical Pathology Report [id number] Location: OR; OR09; A The signing pathologist has (i) examined the relevant preparation(s) for the specimen(s) and (ii) rendered or confirmed the diagnosis(es). . Frozen Section FROZEN SECTION DIAGNOSIS _BFS1,2 Pancreatic neck margin: Negative for tumor 03/23/20 13:12 Electronically signed by: Hiro Burton MD Verified: 03/23/2020 Pathologist Performed at: -[facility] Dept. of Pathology, [place], [place] This intraoperative consultation should be interpreted [...] in place, warm and well perfused YUNIOR Smithisaiah Abel is a 74 y.o. female s/p [...] repleted Elma Zacarias MD 03/23/2020 * Debra Keen, RN - 03/23/2020 5:43 PM EST Pt to PACU via bed from OR; monitors applied, alarms set and audible. Pt restless, trying to sit upin bed, appears to have pain in spasms. Medicated. Eyes swollen shut, crepitus to chest and arms. NIBP to RLE secondary to breast cancer hx. NGT to LI, labs sent. HOB up 30. 1900: Continues [...] I saw Maricruz this am in the [place] area. She is here with her son- [...] to the planned procedure. Hand Hygiene: The logistics loss prevention manager did perform hand hygiene prior to line insertion. Catheter type: PICC Lot number: [id number] Procedure Technique: Skin was prepped with chlorhexidine. [...] correctpatient positioning and presence of the site dolroes was confirmed as applicable. The medical history and chart were reviewed to rule out potential contraindications to the planned procedure. Hand Hygiene: The logistics loss prevention manager did perform hand hygiene prior to line insertion. Catheter type: PICC Lot number: [id number] Procedure Technique: Skin was prepped with chlorhexidine. [...] EST OUTCOME EVALUATION NOTE: ?? OUTCOME SUMMARY: Pt??pain??2-06/24 pain today, managed w/ prn dilaudid.??Pt bps [...] resolved with no intervention. MD aware. Pain 05/27;??managed with PRN IV dilaudid x1. Pt reporting [...] NOTE: OUTCOME SUMMARY: Pt reporting minimal pain /10 this shift in abdomen and lower back, [...] Urrutia MD - 04/02/2020 4:04 PM EST [facility] Operative Note Patient Name: Linda Abel : [id number] MR#: [id number] Case Date: 04/02/2020 Surgeon: Surgeon(s) and Role: [...] mastectomy, main duct IPMN s/p Whipple with Q4vqbktfarreobgn 10 days ago. GI consulted for worsening [...] file Gets together: Not on file Attends gnosticist service: Not on file Active member of [...] mastectomy, main duct IPMN s/p Whipple with L2qnafyfahohnzsb 10 days ago. GI consulted for worsening [...] M.D. Fellow in Gastroenterology and Hepatology Pager #[phone] 04/02/2020 Associated attestation - Ralf Urrutia MD [...] Review Outcome: Ongoing (Interventions Implemented as Appropriate) 03/24/20180004/01/202019 Coping/Psychosocial Plan Of Care Reviewed With -- [...] EVALUATION: * Plan of Care - Ness Cumimngs RN - 04/01/2020 1:36 AM EST OUTCOME [...] complicated by abdominal pain requiring a dilaudid SCREEN CUTTER AND TRIMMER that was weaned off on 03/28. She [...] Inhaler ??? fluticasone propionate (FLONASE) 50 mcg/actuation [place], Suspension 1 spray daily. ??? Creon 24,000-76,000 [...] MD Internal Medicine, PGY3 BETHANY Pager # [phone] Associated attestation - Nataly Leggett MD - [...] low normal I have asked Gina Greer [facility] to meet with her to provide [...] strips that I am aware of are [employer] Relion meter and strips. I left a [...] complicated by abdominal pain requiring a dilaudid SCREEN CUTTER AND TRIMMER that was weaned off on 03/28. She [...] Diagnosis Date ??? Basal cell carcinoma 2009 [facility]-back ??? Breast cancer Meds: No [...] Inhaler ??? fluticasone propionate (FLONASE) 50 mcg/actuation [place], Suspension 1 spray daily. ??? Creon 24,000-76,000 [...] MD Internal Medicine, PGY3 BETHANY Pager # [phone] Associated attestation - Nataly Leggett MD - [...] OUTCOME EVALUATION: * Plan of Care - Mrevin Grimes RN - 03/29/2020 2:48 AM EST OUTCOME EVALUATION NOTE: ?? OUTCOME SUMMARY: Pt pain 2-3/10 pain today, managed well with SCREEN CUTTER AND TRIMMER. Pt tolerating clears w/o nausea or emesis. AUOP, no BM this shift. Pt bps 160-170s/90-100s overnight, md aware, given 2x labetalol per md orders. Pt resting between care. ?? PLAN MOVING FORWARD: Manage pain; wean SCREEN CUTTER AND TRIMMER Monitor I&Os Encourage OOB, ambulation ?? INDIVIDUALIZED [...] reporting 3/10 pain today, managed well with SCREEN CUTTER AND TRIMMER. NGT and KHRIS drain removed this morning [...] PLAN MOVING FORWARD: ?? Manage pain; wean SCREEN CUTTER AND TRIMMER OOB activities; ROBF ?? INDIVIDUALIZED FALL PREVENTION [...] OUTCOME SUMMARY: ?? Pain well controlled with SCREEN CUTTER AND TRIMMER this shift. VSS.Tolerating sips &??chips diet, no [...] fall risk factors per assessment: [current deficits]:?PICC, SCREEN CUTTER AND TRIMMER, Pain, recent surgery, tubes/drains, generalized weakness ? [...] pain this shift, reporting good management with SCREEN CUTTER AND TRIMMER. NGT clamped this morning by MD Carolina~1000, [...] PLAN MOVING FORWARD: ?? Manage pain; wean SCREEN CUTTER AND TRIMMER OOB activities; ROBF ?? INDIVIDUALIZED FALL PREVENTION [...] OUTCOME SUMMARY: ?? Pain well controlled with SCREEN CUTTER AND TRIMMER this shift. VSS.Tolerating sips &??chips diet, no [...] fall risk factors per assessment: [current deficits]:?PICC, SCREEN CUTTER AND TRIMMER, Pain, recent surgery, tubes/drains, generalized weakness ? [...] minimal pain this shift, managed well with SCREEN CUTTER AND TRIMMER. Pt went to CT scan this morning, [...] PLAN MOVING FORWARD: ?? Manage pain; wean SCREEN CUTTER AND TRIMMER OOB activities; ROBF Wean O2 ?? INDIVIDUALIZED [...] NOTE: OUTCOME SUMMARY: Pain well controlled with SCREEN CUTTER AND TRIMMER this shift. VSS.Tolerating sips & chips diet, [...] risk factors per assessment: [current deficits]: PICC, SCREEN CUTTER AND TRIMMER, Pain, recent surgery, tubes/drains, generalized weakness ?? [...] 045 Interdisciplinary Rounds/Family Conf Participants patient;nursing * Consult [...] NOTE: OUTCOME SUMMARY: Pain well controlled with SCREEN CUTTER AND TRIMMER. Patient tachycardic in the 110's this shift, [...] risk factors per assessment: [current deficits]: PICC, SCREEN CUTTER AND TRIMMER, Pain, recent surgery, tubes/drains, generalized weakness Assistance [...] (Interventions Implemented as Appropriate) 03/24/20200403/25/20 0237 03/25/20 5595 Daily Care Interventions Self-Care Promotion -- -- [...] draining CYU adequately, -flatus/-BM, periorbital swelling noted, SCREEN CUTTER AND TRIMMER controlling pain, down for PICC line d/t inadequate IV access/inability to draw labs d/t no IV/BP on R arm, double lumen PICC in place, C/D/I, MIVF, worked with PT/OT, pt resting comfortably between nursing care, bed in lowest position, call light within reach PLAN MOVING FORWARD: Increase mobilization Pain control/wean SCREEN CUTTER AND TRIMMER Increase diet DC planning INDIVIDUALIZED FALL PREVENTION [...] EST Problem: Health Knowledge, Opportunity to Enhance (Adult,NICU,[place],Obstetrics,Pediatric) Goal: Knowledgeable about Health Subject/Topic Patient will demonstrate the desired outcomes by discharge/transition of care. Outcome: Outcome (s) achieved Date Met: 03/24/20 Peripherally Inserted Central Catheter (PICC) Teaching Sheet Peripherally inserted central catheters (ayxr-jo-skmh) (PICC) are used when you need IV [...] midline catheter? PICC lines are used for care home treatments. PICC lines may be used for [...] can be set up via the nurse Tenter to help you. What are possible complications [...] Son is coming to stay with her DIRECTOR [employer]ACLE DAT[employer]ASE pt was independent, drives, feisty* DME: None Precautions/Special Considerations:no BPs RUE, PICC to be placed, NGT, NPO, confusion, SCREEN CUTTER AND TRIMMER, Calderón and drains Lap sites, L breast [...] Pt seen for evaluation today. Pain: Pushed SCREEN CUTTER AND TRIMMER x 1, abdominal discomfort, Vital Signs: SpO2: [...] pt and answered all questions, spoke with nurse discharge planner re: private room when possible, as pt [...] Therapy: (P) 25 PATRICIA JORDAN, PT Pager: [phone] Physical Therapy Inpatient Rehabilitation Department * Initial [...] Carlos would be surrogate decision maker per [place] surrogate decision making law. (Only good for 90 days) Any patient receiving care at [facility] must abide by [place] law. The hierarchy for surrogate decision making [...] (i) The agent with financial power of ip attorney or a conservator appointed in accordance [...] a full flight to bedroom [address] [place] [address] Social & Family Supports/Community Resources: Son, DALJIT Extended Emergency Contact Information Primary Emergency Contact: [place] [address] [facility] Relation: Child Secondary Emergency Contact: [place] [address] [facility] Mobile Relation: Son/Wnonxitf-qy-avg Behavioral Health History: Denies Other Pertinent/Service Specific Information: No Health/Prescription Coverage: Primary Insurance: MEDICARE Payor: MEDICARE / Plan: MEDICARE PART A & B / Product Type: *No Product type* / Secondary Insurance: [facility] Prescription Coverage: Medicare D Preferred Pharmacy: [facility] [place], [place] - [address] [place] [id number] [facility] - [address] [facility] [address] Primary Care Provider: Zeny James APRN [phone] Patient/Caregiver Goals of Treatment: feel better Potential Needs for Transition of Care: Rehab/SNF: n/a Home Health: The patient has been provided a list of Home Health Agencies placed. Provided patient with [facility] Star Quality Rating for Home care. Patient requests referral to [facility] For RN PHONE: [phone] FAX: [phone]. Expected date of discharge: 03/30. Referral routed to the [employer]bin Painter for matching with agency/vendor and to provide any required information. DME: n/a Community Resources: No Transportation: Son Dialysis: n/a Anticipated Barriers to Discharge/Special Considerations: None Assessment: [facility] for RN routed and orders pended. Patient [...] transition of care planning. Alesha Casillas RN children counselor Pager: [phone] * Plan of Care - Ness Cummings RN - 03/24/2020 1:24 AM EST OUTCOME EVALUATION NOTE: OUTCOME SUMMARY: Patient arrived from PACU to room 210A at 2223 . A&O x4. VSS. Pain 09/24, managed with SCREEN CUTTER AND TRIMMER and scheduled IV Tylenol. Frequent reminders given to use SCREEN CUTTER AND TRIMMER. Remains on 3L NC over night. Subcutaneous [...] per assessment: [current deficits]: Recent surgery, pain, SCREEN CUTTER AND TRIMMER, infusing PIV, general weakness Assistance [level of [...] Carolina MD - 03/23/2020 4:56 PM EST [facility] Operative Note Patient Name: Linda Abel : [id number] MR#: [id number] Case Date: 03/23/2020 Surgeon: Surgeon(s) and Role: * Davian Carolina MD - Primary Registered Nurse Scientific Technical Writer: Whitney Rangel RN Preoperative diagnosis: IPMN Postoperative [...] margin, pancreatic neck margin- FROZEN Blue-vascular groove\ [place]-SMA RM09 [id number] IPMN Head of pancreas, antrum, duodenum excision YES, Please perform frozen section No 03/23/2020 12:38 PM Number of tissue samples (in container) 1 Time specimen removed from patient: 12:33 PM SPECIMEN TO PATHOLOGY Gallbladder and omentum RM 09 [id number] IPMN Gallbladder and omentum excision No 03/23/2020 12:44 PM Time specimen removed from patient: 12:43 PM Number of tissue samples (in container) 1 Biospecimen to store? No PATHOLOGY ORDER UPDATE Gallbladder only 03/23/2020 12:51 PM Additional information: Correction Enter requested changes: Gallbladder eD-H Order Id number [id number] PATHOLOGY ORDER UPDATE Head of pancreas, antrum, duodenum & OMENTUM 03/23/2020 12:51 PM Additional information: Additional Info Enter requested changes: omentum eD-H Order Id number [id number] Drains: Drain/Device Site 12/20/19 1301 Left breast [...] Next, we placed the 15 mm laparoscopic metallurgical laboratory assistant port in the right mid rectus [...] side of the patient's bed using a Awli arm. We then positioned the patient in the steep reverse Trendelenburg position and reflected the omentum and transverse colon back down into the mid/lower abdomen to allow the gastrocolic omentum to be somewhat tented. The patient was tilted to the left slightly. We then proceeded to commence the robotic portion of the operation. The [employer] Xi patient cart was brought in and [...] The proximal jejunum was divided using the [place] stapler (white load). The specimen side of [...] was divided using 2 firings of the [place] stapler (green load and a blue load). [...] lateral extent exposing both the vein of [place] superiorly and the first jejunal branch inferiorly. [...] trocars and extended the 15 mm lap metallurgical laboratory assistant port for approximately an additional 3 [...] and extracted through the 15 mm laparoscopic metallurgical laboratory assistant port via a Endo Catch specimen [...] complete we turned our attention to the qloo-fx-avbmvn stitches. An tiny enterotomy was created immediately [...] the reconstruction complete we introduced a 19 Hebrew Darius drain via the most right lateral [...] new suction and cautery at closure: No Qdnuukhxc-dncnsrhbd-dktfcikjha abdominal cavity wash: No Ndqrvvgqy-jefoaixds-bittrtbmwb wound wash: No Attestation: Case Date: 03/23/2020 I performed this procedure without the involvement of a resident. DAVIAN CAROLINA MD 03/23/2020 documented in this encounter Plan of Treatment Upcoming Encounters Date Type Department Care Team (Late st Contact Info) Description 01/01/2025 2:00 PM EDT Office Visit Hematology/Oncology at [address] [phone] Jeffery Sanz MD [facility] DR [place]EM[place] [address] Mary Nails APRN [address] [place] [address] [place] [address] 01/01/2025 2:30 PM EDT Infusion Hematology Oncology at [address] [phone] 01/14/2025 11:00 AM EDT Laboratory Appointment Lab [address] [phone] 01/14/2025 1:[address] [place] [phone] Davian Carolina MD [facility] [place] [address] 01/14/2025 2:00 PM EDT Office Visit [place] [phone] Davian Carolina MD [facility] [place] [address] Scheduled Referrals Name Type Priority Associated Diagnoses [...] 5 :35 AM EST BASIC METABOLIC PANEL Routine 04/11/2020 5:35 AM EST POCT GLUCOSE [...] 3 :14 AM EST BASIC METABOLIC PANEL Routine 04/10/2020 3:14 AM EST POCT GLUCOSE [...] 1 2:30 AM EST BASIC METABOLIC PANEL Routine 04/09/2020 12:30 AM EST POCT GLUCOSE [...] 1 2:30 AM EST BASIC METABOLIC PANEL Routine 04/08/2020 12:30 AM EST POCT GLUCOSE [...] 3 :50 AM EST BASIC METABOLIC PANEL Routine 04/07/2020 3:50 AM EST POCT GLUCOSE [...] 1 :30 AM EST BASIC METABOLIC PANEL Routine 04/06/2020 1:30 AM EST POCT GLUCOSE [...] 1 :10 AM EST BASIC METABOLIC PANEL Routine 04/05/2020 1:10 AM EST POCT GLUCOSE [...] 3 :26 AM EST BASIC METABOLIC PANEL Routine 04/04/2020 3:26 AM EST POCT GLUCOSE [...] 2 :50 AM EST BASIC METABOLIC PANEL Routine 04/03/2020 2:50 AM EST POCT GLUCOSE Routine 04/02/2020 10:57 PM EST XR CHEST ONE VIEW STAT 04/02/2020 7:2 1 PM EST XR ABDOMEN 1 VIEW STAT 04/02/2020 7:2 1 PM EST BASIC METABOLIC PANEL Timed 04/02/2020 6:15 PM EST POCT GLUCOSE Routine 04/02/2020 5:17 PM EST Upper GI Endoscopy, Diagnostic ([id number]) 04/02/2020 3:17 PM EST Post Whipple UPPER GI ENDOSCOPY Routine 04/02/2020 2: 52 PM EST POCT GLUCOSE Routine 04/02/2020 12:12 PM EST POCT GLUCOSE Routine 04/02/2020 9:58 AM EST POCT GLUCOSE Routine 04/02/2020 8:04 AM EST HEMOGRAM Routine 04/02/2020 1:40 AM EST DIFFERENTIAL, AUTOMATED Routine 04/02/20 1:40 AM EST HC CBC,PLT & AUTO DIFF Routine 0 1:40 AM EST HC PHOSPHORUS, SERUM Routine 04/02/2020 1:40 AM EST HC MAGNESIUM, SERUM Routine 04/02/2020 1 :40 AM EST BASIC METABOLIC PANEL Routine 04/02/2020 1:40 AM EST POCT GLUCOSE [...] 0 4:20 AM EST BASIC METABOLIC PANEL Routine 04/01/2020 4:20 AM EST POCT GLUCOSE [...] 2 :30 AM EST BASIC METABOLIC PANEL Routine 03/29/2020 2:30 AM EST HEMOGRAM Routine [...] 03/27/2020 3:20 AM EST COMPREHENSIVE METABOLIC PANEL Routine 03/27/2020 3:20 AM EST POCT GLUCOSE [...] 1:45 AM EST DIFFERENTIAL, AUTOMATED Routine 03/26/20 1:45 AM EST HC CBC,PLT & AUTO DIFF Routine 0 1:45 AM EST HC PHOSPHORUS, SERUM Routine 03/26/2020 1:45 AM EST HC MAGNESIUM, SERUM Routine 03/26/2020 1 :45 AM EST HC AMYLASE Routine 03/26/2020 1:45 AM EST COMPREHENSIVE METABOLIC PANEL Routine 03/26/2020 1:45 AM EST HC AMYLASE [...] 03/25/2020 1:55 AM EST COMPREHENSIVE METABOLIC PANEL Routine 03/25/2020 1:55 AM EST POCT GLUCOSE [...] 6 :30 PM EST COMPREHENSIVE METABOLIC PANEL STAT 03/23/2020 6:30 PM EST ANAEROBIC CULTURE [...] 03/23/2020 9:25 AM EST Omental Flap, Intra-Abdominal ([id number]) 03/23/2020 7:43 AM EST IPMN MODIFIER ROBOT,DAVINCI XI 03/23/2020 7:43 AM EST IPMN Unlisted Px Pncrs ([id number]) 03/23/2020 7:43 AM EST IPMN ABORH RECHECK STATUS Routine 03/23/2020 7:24 AM EST ABO/RH TYPING Routine 03/23/2020 7:24 AM EST ANTIBODY SCREEN Routine 03/23/2020 7:24 AM EST HC ABO-MICROTITER Routine 03/23/2020 7:2 4 AM EST documented in this encounter Results * Prealbumin (09/28/2020 11:52 AM EDT) Prealbumin 21 20 - 40 mg/dL [facility] Comment: Prealbumin levels are generally lower in the pediatric population; adult concentrations are usually attained near puberty. Blood 09/28/2020 11:5 2 AM EDT 09/28/2020 12:17 PM EDT Narrative Resulting Agency Comment Spec In Lab Anjelica Jordan APRN CHEMISTRY ORDERA BLES [facility] [place] [address] * (ABNORMAL) Comprehensive metabolic panel (non-fasting) (09/28/2020 11:52 AM EDT) Glucose 127 65 - 199 mg/dL [facility] Comment:Diabetes: >=200 mg/d L plus symptoms Blood Urea Nitrogen 16 8 - 18 mg/dL [facility] Creatinine 0.65(L) 0.70 - 1.20 mg/dL [facility] Sodium 136 135 - 145 mmol/L [facility] Potassium 4.0 3.5 - 5.0 mmol/L [facility] Comment: Please note: ??Patients with WBC >100,000 may have falsely elevated Potassium levels. ??For accurate Potassium quantification in these patients send serum separator tube (gold top) for subsequent determinations. ??Contact the Clinical Chemistry Laboratory if there are any questions. Chloride 101 98 - 107 mmol/L [facility] Carbon Dioxide 25 22 - 31 mmol/L [facility] Anion Gap 10 5 - 15 mmol/L [facility] Calcium 9.0 8.5 - 10.5 mg/dL [facility] Protein, Total 6.5 6.1 - 8.0 gm/dL [facility] Albumin 4.1 3.2 - 5.2 gm/dL [facility] Aspartate Aminotransferase 28 0 - 30 unit/L [facility] Alanine Aminotransferase 27 0 - 30 unit/L [facility] Alkaline Phosphatase 148(H) 35 - 105 unit/L [facility] Bilirubin, Total 0.3 0.2 - 1.3 mg/dL [facility] Est Glomerular Filtration Rate 88 >=60 mL/min/1. 73 m?? [facility] Comment: This patient? s estimated [...] Lab Anjelica Jordan APRN CHEMISTRY ORDERA BLES [facility] [place] [address] * POCT Glucose (04/11/2020 12:02 PM EST) Glucose, POC 150 65 - 199 mg/dL [facility] Comment: Supplemental ranges: <140 mg/dL before meals <180 mg/dL all other times of the day Blood specimen (specimen) 04/11/2020 12:02 PM EST 04/11/2020 12:02 PM EST Davian Carolina MD POINT OF CARE TEST ORDERABLES [facility] [place] [address] * POCT Glucose (04/11/2020 7:43 AM EST) Glucose, POC 162 65 - 199 mg/dL [facility] Comment: Supplemental ranges: <140 mg/dL before meals <180 mg/dL all other times of the day Blood specimen (specimen) 04/11/2020 7:43 AM EST 04/11/2020 7:43 AM EST Davian Carolina MD POINT OF CARE TEST ORDERABLES [facility] [place] [address] * (ABNORMAL) Differential, Automated (04/11/2020 5:35 AM EST) Pathologist [facility] Neutrophil % 75.6 % [facility] Neutrophil Absolute 9.98(H) 1.70 - 6.10 x10(3)/mc L [facility] Lymph % 9.9 % [facility] Lymphocytes Abs 1.3 0.9 - 3.2 x10(3)/mc L [facility] Monocyte % 7.6 % [facility] Monocyte Abs 1.0(H) 0.3 - 0.9 x10(3)/mc L [facility] Eos % 3.9 % [facility] Eosinophils Abs 0.5(H) 0.0 - 0.4 x10(3)/mc L [facility] Basophil % 0.7 % [facility] Baso Absolute 0.1 0.0 - 0.1 x10(3)/mc L [facility] Immature Gran % 2.30 % [facility] Comment: Immature granulocytes(IG's)percentage and absolute count will include metamyelocytes, myelocytes, and promyelocytes. Blood smears from CBCs yielding IG's will be scanned manually for concordance. If this scan disagrees with the automated IG or if promyelocytes are noted, a manual differential will be performed. Immature Gran Absolute 0.31(H) 0.00 - 0.04 x10(3)/ L [facility] Blood specimen (specimen) 04/11/2020 5:35 AM EST 04/11/2020 5:43 AM EST Narrative Resulting Agency Comment Spec In Lab Anjelica Jordan JES[facility]BERTO HEMATOLOGY ORDER MAGAN [facility] [place] [address] * (ABNORMAL) Hemogram (04/11/2020 5:35 AM EST) White Blood Cell 13.2(H) 4.0 - 9.5 x10(3)/[facility] Red Blood Cell 3.22(L) 4.00 - 5.21 x10(6)/[facility] Hemoglobin 9.7(L) 11.7 - 15.5 gm/dL [facility] Hematocrit 29.4(L) 35.7 - 45.8 % [facility] Mean Cell Volume 91.3 82.6 - 94.4 fL [facility] Mean Cell Hemoglobin 30.1 27.1 - 32.0 pg [facility] Mean Cell Hemoglobin Concentration 33.0 31.7 - 35.0 gm/dL [facility] Platelet 371(H) 145 - 357 x10(3)/ L [facility] RDW Standard Deviation 44.1 37.0 - 46.0 [facility] RDW coefficient of variation 13.2 11.5 - 14.1 % [facility] Mean Platelet Volume 10.1 7.6 - 12.9 fL [facility] NRBC% auto 0.0 % [facility] NRBC Absolute 0.000 0.000 - 0.000 x10(3)/ L [facility] Blood specimen (specimen) 04/11/2020 5:35 AM EST 04/11/2020 5:43 AM EST Narrative Resulting Agency Comment Spec In Lab Anjelica Jordan RESPIRATORY MEDICINE PHYSICIAN HEMATOLOGY ORDER MAGAN Performing Organization Address City/[facility]/ZIP Co de Phone Number [facility] [place] [address] * Phosphorus (04/11/2020 5:35 AM EST) Phosphorus 3.4 2.5 - 4.5 mg/dL [facility] Blood specimen (specimen) 04/11/2020 5:35 AM EST 04/11/2020 5:43 AM EST Narrative Resulting Agency Comment Spec In Lab Anjelica Jordan RESPIRATORY MEDICINE PHYSICIAN CHEMISTRY ORDERA BLES Performing Organization Address [facility] de Phone Number [facility] [place] [address] * Magnesium (04/11/2020 5:35 AM EST) Magnesium 0.69 0.69 - 1.07 mmol/L [facility] Blood specimen (specimen) 04/11/2020 5:35 AM EST 04/11/2020 5:43 AM EST Narrative Resulting Agency Comment Spec In Lab Anjelica Jordan APRN CHEMISTRY ORDERA BLES Performing Organization Address [facility] Co de Phone Number [facility] [place] [address] * (ABNORMAL) Basic Metabolic Panel (non-fasting) (04/11/2020 5:35 AM EST) Glucose 165 65 - 199 mg/dL [facility] Comment:Diabetes: >=200 mg/d L plus symptoms Blood Urea Nitrogen 15 8 - 18 mg/dL [facility] Creatinine 0.34(L) 0.70 - 1.20 mg/dL [facility] Sodium 130(L) 135 - 145 mmol/L [facility] Potassium 4.3 3.5 - 5.0 mmol/L [facility] Comment: Please note: ??Patients with WBC >100,000 may have falsely elevated Potassium levels. ??For accurate Potassium quantification in these patients send serum separator tube (gold top) for subsequent determinations. ??Contact the Clinical Chemistry Laboratory if there are any questions. Chloride 99 98 - 107 mmol/L [facility] Carbon Dioxide 25 22 - 31 mmol/L [facility] Anion Gap 6 5 - 15 mmol/L [facility] Calcium 7.7(L) 8.5 - 10.5 mg/dL [facility] Est Glomerular Filtration Rate 109 >=60 mL/min/1. 73 m?? [facility] Comment: This patient? s estimated [...] In Lab Anjelica Jordan APRN CHEMISTRY ORDERA [facility] [place] [address] * POCT Glucose (04/11/2020 3:37 AM EST) Glucose, POC 184 65 - 199 mg/dL [facility] Comment: Supplemental ranges: <140 mg/dL before meals <180 mg/dL all other times of the day Blood specimen (specimen) 04/11/2020 3:37 AM EST 04/11/2020 3:37 AM EST Davian Carolina MD POINT OF CARE TEST ORDERABLES Performing Organization Address City/[facility] Co de Phone Number [facility] [place] [address] * POCT Glucose (04/11/2020 12:32 AM EST) Glucose, POC 181 65 - 199 mg/dL [facility] Comment: Supplemental ranges: <140 mg/dL before meals <180 mg/dL all other times of the day Blood specimen (specimen) 04/11/2020 12:32 AM EST 04/11/2020 12:32 AM EST Davian Carolina MD POINT OF CARE TEST ORDERABLES Performing Organization Address [facility] Co de Phone Number [facility] [place] [address] * POCT Glucose (04/10/2020 8:55 PM EST) Glucose, POC 174 65 - 199 mg/dL [facility] Comment: Supplemental ranges: <140 mg/dL before meals <180 mg/dL all other times of the day Blood specimen (specimen) 04/10/2020 8:55 PM EST 04/10/2020 8:55 PM EST Davian Carolina MD POINT OF CARE TEST ORDERABLES Performing Organization Address [facility] Co de Phone Number [facility] [place] [address] * POCT Glucose (04/10/2020 5:32 PM EST) Glucose, POC 168 65 - 199 mg/dL [facility] Comment: Supplemental ranges: <140 mg/dL before meals <180 mg/dL all other times of the day Blood specimen (specimen) 04/10/2020 5:32 PM EST 04/10/2020 5:32 PM EST Davian Carolina MD POINT OF CARE TEST ORDERABLES [facility] [place] [address] * POCT Glucose (04/10/2020 1:22 PM EST) Glucose, POC 167 65 - 199 mg/dL [facility] Comment: Supplemental ranges: <140 mg/dL before meals <180 mg/dL all other times of the day Blood specimen (specimen) 04/10/2020 1:22 PM EST 04/10/2020 1:22 PM EST Davian Carolina MD POINT OF CARE TEST ORDERABLES [facility] [place] [address] * XR PICC Placement Over 5 Years [...] signed by: Maria Esther Stallworth MD, [facility] [place] ([phone]), at 04/10/2020 12:18 PM Narrative 04/10/2020 12:18 [...] signed by: Maria Esther Stallworth MD, [facility]([phone]), at 04/10/2020 12:18 PM Davian Carolina MD [...] to the planned procedure. Hand Hygiene: The logistics loss prevention manager did perform hand hygiene prior to line insertion. Catheter type: PICC Lot number: [id number] Procedure Technique: Skin was prepped with chlorhexidine. [...] (ABNORMAL) POCT Glucose (04/10/2020 8:08 AM EST) [facility] Glucose, POC 220(H) 65 - 199 mg/dL [facility] Comment: Supplemental ranges: <140 mg/dL before meals <180 mg/dL all other times of the day Blood specimen (specimen) 04/10/2020 8:08 AM EST 04/10/2020 8:08 AM EST Davian Carolina MD POINT OF CARE TEST ORDERABLES Performing Organization Address City/[facility]/[place] [address] * (ABNORMAL) Differential, Automated (04/10/2020 3:14 AM EST) Neutrophil % 64.4 % [facility] Neutrophil Absolute 8.46(H) 1.70 - 6.10 x10(3)/mc L [facility] Lymph % 14.2 % [facility] Lymphocytes Abs 1.9 0.9 - 3.2 x10(3)/ L [facility] Monocyte % 9.8 % [facility] Monocyte Abs 1.3(H) 0.3 - 0.9 x10(3)/ L [facility] Eos % 7.2 % [facility] Eosinophils Abs 0.9(H) 0.0 - 0.4 x10(3)/[facility] Basophil % 0.8 % [facility] Baso Absolute 0.1 0.0 - 0.1 x10(3)/[facility] Immature Gran % 3.60 % [facility] Comment: Immature granulocytes(IG's)percentage and absolute count will include metamyelocytes, myelocytes, and promyelocytes. Blood smears from CBCs yielding IG's will be scanned manually for concordance. If this scan disagrees with the automated IG or if promyelocytes are noted, a manual differential will be performed. Immature Gran Absolute 0.47(H) 0.00 - 0.04 x10(3)/ L [facility] Blood specimen (specimen) 04/10/2020 3:14 AM EST 04/10/2020 3:21 AM EST Narrative Resulting Agency Comment Spec In Lab Anjelica Jordan APRN HEMATOLOGY ORDER MAGAN [facility] [place] [address] * (ABNORMAL) Hemogram (04/10/2020 3:14 AM EST) White Blood Cell 13.1(H) 4.0 - 9.5 x10(3)/mc L [facility] Red Blood Cell 3.17(L) 4.00 - 5.21 x10(6)/mc L [facility] Hemoglobin 9.6(L) 11.7 - 15.5 gm/dL [facility] Hematocrit 28.6(L) 35.7 - 45.8 % [facility] Mean Cell Volume 90.2 82.6 - 94.4 fL [facility] Mean Cell Hemoglobin 30.3 27.1 - 32.0 pg [facility] Mean Cell Hemoglobin Concentration 33.6 31.7 - 35.0 gm/dL [facility] Platelet 429(H) 145 - 357 x10(3)/mc L [facility] RDW Standard Deviation 42.9 37.0 - 46.0 fL [facility] RDW coefficient of variation 13.0 11.5 - 14.1 % [facility] Mean Platelet Volume 10.2 7.6 - 12.9 fL [facility] NRBC% auto 0.0 % [facility] NRBC Absolute 0.000 0.000 - 0.000 x10(3)/ L [facility] Blood specimen (specimen) 04/10/2020 3:14 AM EST 04/10/2020 3:21 AM EST Narrative Resulting Agency Comment Spec In Lab Anjelica Jordan APRN HEMATOLOGY ORDER MAGAN [facility] [place] [address] * Phosphorus (04/10/2020 3:14 AM EST) Pathologist [facility] Phosphorus 3.4 2.5 - 4.5 mg/dL [facility] Blood specimen (specimen) 04/10/2020 3:14 AM EST 04/10/2020 3:21 AM EST Narrative Resulting Agency Comment Spec In Lab Anjelica Jordan RESPIRATORY MEDICINE PHYSICIAN CHEMISTRY ORDERA BLES Performing Organization Address [facility] de Phone Number [facility] [place] [address] * (ABNORMAL) Magnesium (04/10/2020 3:14 AM EST) Magnesium 0.64(L) 0.69 - 1.07 mmol/L [facility] Blood specimen (specimen) 04/10/2020 3:14 AM EST 04/10/2020 3:21 AM EST Narrative Resulting Agency Comment Spec In Lab Anjelica Lissa Nikki RESPIRATORY MEDICINE PHYSICIAN CHEMISTRY ORDERA BLES Performing Organization Address [facility] de Phone Number [facility] [place] [address] * (ABNORMAL) Basic Metabolic Panel (non-fasting) (04/10/2020 3:14 AM EST) Glucose 156 65 - 199 mg/dL [facility] Comment:Diabetes: >=200 mg/d L plus symptoms Blood Urea Nitrogen 16 8 - 18 mg/dL [facility] Creatinine 0.35(L) 0.70 - 1.20 mg/dL [facility] Sodium 131(L) 135 - 145 mmol/L [facility] Potassium 3.9 3.5 - 5.0 mmol/L [facility] Comment: Please note: ??Patients with WBC >100,000 may have falsely elevated Potassium levels. ??For accurate Potassium quantification in these patients send serum separator tube (gold top) for subsequent determinations. ??Contact the Clinical Chemistry Laboratory if there are any questions. Chloride 100 98 - 107 mmol/L [facility] Carbon Dioxide 24 22 - 31 mmol/L [facility] Anion Gap 7 5 - 15 mmol/L [facility] Calcium 7.6(L) 8.5 - 10.5 mg/dL [facility] Est Glomerular Filtration Rate 108 >=60 mL/min/1. 73 m?? [facility] Comment: This patient? s estimated [...] ORDERA BLES Performing Organization Address [facility]/ZIP Co de Phone Number [facility] [place] [address] * POCT Glucose (04/10/2020 3:09 AM EST) Glucose, POC 155 65 - 199 mg/dL [facility] Comment: Supplemental ranges: <140 mg/dL before meals <180 mg/dL all other times of the day Blood specimen (specimen) 04/10/2020 3:09 AM EST 04/10/2020 3:09 AM EST Davian Carolina MD POINT OF CARE TEST ORDERABLES Performing Organization Address City/[facility]/ZIP Co de Phone Number [facility] [place] [address] * POCT Glucose (04/10/2020 12:45 AM EST) Glucose, POC 179 65 - 199 mg/dL [facility] Comment: Supplemental ranges: <140 mg/dL before meals <180 mg/dL all other times of the day Blood specimen (specimen) 04/10/2020 12:45 AM EST 04/10/2020 12:45 AM EST Davian Carolina MD POINT OF CARE TEST ORDERABLES Performing Organization Address City/[facility] Co de Phone Number [facility] [place] [address] * POCT Glucose (04/09/2020 8:11 PM EST) Glucose, POC 184 65 - 199 mg/dL [facility] Comment: Supplemental ranges: <140 mg/dL before meals <180 mg/dL all other times of the day Blood specimen (specimen) 04/09/2020 8:11 PM EST 04/09/2020 8:11 PM EST Davian Carolina MD POINT OF CARE TEST ORDERABLES Performing Organization Address [facility] Co de Phone Number [facility] [place] [address] * POCT Glucose (04/09/2020 4:59 PM EST) Glucose, POC 167 65 - 199 mg/dL [facility] Comment: Supplemental ranges: <140 mg/dL before meals <180 mg/dL all other times of the day Blood specimen (specimen) 04/09/2020 4:59 PM EST 04/09/2020 4:59 PM EST Davian Carolina MD POINT OF CARE TEST ORDERABLES Performing Organization Address City/[facility] Co de Phone Number [facility] [place] [address] * POCT Glucose (04/09/2020 1:16 PM EST) Glucose, POC 180 65 - 199 mg/dL [facility] Comment: Supplemental ranges: <140 mg/dL before meals <180 mg/dL all other times of the day Blood specimen (specimen) 04/09/2020 1:16 PM EST 04/09/2020 1:16 PM EST Davian Carolina MD POINT OF CARE TEST ORDERABLES Performing Organization Address [facility] Co de Phone Number [facility] [place] [address] * POCT Glucose (04/09/2020 8:05 AM EST) Glucose, POC 181 65 - 199 mg/dL [facility] Comment: Supplemental ranges: <140 mg/dL before meals <180 mg/dL all other times of the day Blood specimen (specimen) 04/09/2020 8:05 AM EST 04/09/2020 8:05 AM EST Davian Carolina MD POINT OF CARE TEST ORDERABLES Performing Organization Address [facility] Co de Phone Number [facility] [place] [address] * POCT Glucose (04/09/2020 5:18 AM EST) Glucose, POC 145 65 - 199 mg/dL [facility] Comment: Supplemental ranges: <140 mg/dL before meals <180 mg/dL all other times of the day Blood specimen (specimen) 04/09/2020 5:18 AM EST 04/09/2020 5:18 AM EST Davian Carolina MD POINT OF CARE TEST ORDERABLES Performing Organization Address [facility] Co de Phone Number [facility] [place] [address] * POCT Glucose (04/09/2020 12:52 AM EST) Glucose, POC 169 65 - 199 mg/dL [facility] Comment: Supplemental ranges: <140 mg/dL before meals <180 mg/dL all other times of the day Blood specimen (specimen) 04/09/2020 12:52 AM EST 04/09/2020 12:52 AM EST Davian Carolina MD POINT OF [place] [address] * (ABNORMAL) Differential, Automated (04/09/2020 12:30 AM EST) Neutrophil % 62.3 % [facility] Neutrophil Absolute 8.42(H) 1.70 - 6.10 x10(3)/ L [facility] Lymph % 13.7 % [facility] Lymphocytes Abs 1.8 0.9 - 3.2 x10(3)/[facility] Monocyte % 11.0 % [facility] Monocyte Abs 1.5(H) 0.3 - 0.9 x10(3)/[facility] Eos % 7.2 % [facility] Eosinophils Abs 1.0(H) 0.0 - 0.4 x10(3)/[facility] Basophil % 0.9 % [facility] Baso Absolute 0.1 0.0 - 0.1 x10(3)/[facility] Immature Gran % 4.90 % [facility] Comment: Immature granulocytes(IG's)percentage and absolute count will include metamyelocytes, myelocytes, and promyelocytes. Blood smears from CBCs yielding IG's will be scanned manually for concordance. If this scan disagrees with the automated IG or if promyelocytes are noted, a manual differential will be performed. Immature Gran Absolute 0.66(H) 0.00 - 0.04 x10(3)/ L [facility] Blood specimen (specimen) 04/09/2020 12:30 AM EST 04/09/2020 1:16 AM EST Narrative Resulting Agency Comment Spec In Lab Anjelica Jordan APRN HEMATOLOGY ORDER MAGAN [facility] [place] [address] * (ABNORMAL) Hemogram (04/09/2020 12:30 AM EST) White Blood Cell 13.5(H) 4.0 - 9.5 x10(3)/mc L [facility] Red Blood Cell 3.38(L) 4.00 - 5.21 x10(6)/ L [facility] Hemoglobin 10.1(L) 11.7 - 15.5 gm/dL [facility] Hematocrit 30.4(L) 35.7 - 45.8 % [facility] Mean Cell Volume 89.9 82.6 - 94.4 fL [facility] Mean Cell Hemoglobin 29.9 27.1 - 32.0 pg [facility] Mean Cell Hemoglobin Concentration 33.2 31.7 - 35.0 gm/dL [facility] Platelet 426(H) 145 - 357 x10(3)/[facility] RDW Standard Deviation 43.6 37.0 - 46.0 [facility] RDW coefficient of variation 13.1 11.5 - 14.1 % [facility] Mean Platelet Volume 9.9 7.6 - 12.9 fL [facility] NRBC% auto 0.0 % [facility] NRBC Absolute 0.000 0.000 - 0.000 x10(3)/[facility] Blood specimen (specimen) 04/09/2020 12:30 AM EST 04/09/2020 1:16 AM EST Narrative Resulting Agency Comment Spec In Lab Anjelica Jordan APRN HEMATOLOGY ORDER MAGAN [facility] [place] [address] * Phosphorus (04/09/2020 12:30 AM EST) Pathologist [facility] Phosphorus 2.7 2.5 - 4.5 mg/dL [facility] Blood specimen (specimen) 04/09/2020 12:30 AM EST 04/09/2020 1:16 AM EST Narrative Resulting Agency Comment Spec In Lab Anjelica Jordan RESPIRATORY MEDICINE PHYSICIAN CHEMISTRY ORDERA BLES Performing Organization Address [facility] de Phone Number [facility] [place] [address] * Magnesium (04/09/2020 12:30 AM EST) Magnesium 0.78 0.69 - 1.07 mmol/L [facility] Blood specimen (specimen) 04/09/2020 12:30 AM EST 04/09/2020 1:16 AM EST Narrative Resulting Agency Comment Spec In Lab Anjelica Alcaraz Nikki RESPIRATORY MEDICINE PHYSICIAN CHEMISTRY ORDERA BLES Performing Organization Address [facility] de Phone Number [facility] [place] [address] * (ABNORMAL) Basic Metabolic Panel (non-fasting) (04/09/2020 12:30 AM EST) Glucose 157 65 - 199 mg/dL [facility] Comment:Diabetes: >=200 mg/d L plus symptoms Blood Urea Nitrogen 15 8 - 18 mg/dL [facility] Creatinine 0.31(L) 0.70 - 1.20 mg/dL [facility] Sodium 133(L) 135 - 145 mmol/L [facility] Potassium 3.9 3.5 - 5.0 mmol/L [facility] Comment: Please note: ??Patients with WBC >100,000 may have falsely elevated Potassium levels. ??For accurate Potassium quantification in these patients send serum separator tube (gold top) for subsequent determinations. ??Contact the Clinical Chemistry Laboratory if there are any questions. Chloride 102 98 - 107 mmol/L [facility] Carbon Dioxide 23 22 - 31 mmol/L [facility] Anion Gap 8 5 - 15 mmol/L [facility] Calcium 7.7(L) 8.5 - 10.5 mg/dL [facility] Est Glomerular Filtration Rate 112 >=60 mL/min/1. 73 m?? [facility] Comment: This patient? s estimated [...] ORDERA BLES Performing Organization Address [facility]/ZIP Co de Phone Number [facility] [place] [address] * POCT Glucose (04/08/2020 9:03 PM EST) Glucose, POC 169 65 - 199 mg/dL [facility] Comment: Supplemental ranges: <140 mg/dL before meals <180 mg/dL all other times of the day Blood specimen (specimen) 04/08/2020 9:03 PM EST 04/08/2020 9:03 PM EST Davian Carolina MD POINT OF CARE TEST ORDERABLES Performing Organization Address [facility]/ZIP Co de Phone Number [facility] [place] [address] * C. Difficile Screen (04/08/2020 5:52 PM EST) C Diff Interp Negative Negative [facility] Comment: Ag/Tox Neg C. diff?? [...] - GEN ERAL ORDERABLES Performing Organization Address City/[facility]/ZIP Co de Phone Number [facility] [place] [address] * POCT Glucose (04/08/2020 3:42 PM EST) Glucose, POC 127 65 - 199 mg/dL [facility] Comment: Supplemental ranges: <140 mg/dL before meals <180 mg/dL all other times of the day Blood specimen (specimen) 04/08/2020 3:42 PM EST 04/08/2020 3:42 PM EST Davian Carolina MD POINT OF CARE TEST ORDERABLES Performing Organization Address [facility] Co de Phone Number [facility] [place] [address] * POCT Glucose (04/08/2020 12:31 PM EST) Glucose, POC 167 65 - 199 mg/dL [facility] Comment: Supplemental ranges: <140 mg/dL before meals <180 mg/dL all other times of the day Blood specimen (specimen) 04/08/2020 12:31 PM EST 04/08/2020 12:31 PM EST Davian Carolina MD POINT OF CARE TEST ORDERABLES Performing Organization Address City/[facility] Co de Phone Number [facility] [place] [address] * POCT Glucose (04/08/2020 7:28 AM EST) Glucose, POC 199 65 - 199 mg/dL [facility] Comment: Supplemental ranges: <140 mg/dL before meals <180 mg/dL all other times of the day Blood specimen (specimen) 04/08/2020 7:28 AM EST 04/08/2020 7:28 AM EST Davian Carolina MD POINT OF CARE TEST ORDERABLES Performing Organization Address City/[facility] Co de Phone Number [facility] [place] [address] * POCT Glucose (04/08/2020 3:25 AM EST) Pathologist [facility] Glucose, POC 146 65 - 199 mg/dL [facility] Comment: Supplemental ranges: <140 mg/dL before meals <180 mg/dL all other times of the day Blood specimen (specimen) 04/08/2020 3:25 AM EST 04/08/2020 3:25 AM EST Davian Carolina MD POINT OF CARE TEST ORDERABLES Performing Organization Address [facility] Co de Phone Number [facility] [place] [address] * (ABNORMAL) Differential, Automated (04/08/2020 12:30 AM EST) [facility] Neutrophil % 69.8 % [facility] Neutrophil Absolute 11.23(H) 1.70 - 6.10 x10(3)/mc L [facility] Lymph % 10.5 % [facility] Lymphocytes Abs 1.7 0.9 - 3.2 x10(3)/mc L [facility] Monocyte % 11.2 % [facility] Monocyte Abs 1.8(H) 0.3 - 0.9 x10(3)/mc L [facility] Eos % 4.0 % [facility] Eosinophils Abs 0.6(H) 0.0 - 0.4 x10(3)/mc L [facility] Basophil % 0.6 % [facility] Baso Absolute 0.1 0.0 - 0.1 x10(3)/mc L [facility] Immature Gran % 3.90 % [facility] Comment: Immature granulocytes(IG's)percentage and absolute count will include metamyelocytes, myelocytes, and promyelocytes. Blood smears from CBCs yielding IG's will be scanned manually for concordance. If this scan disagrees with the automated IG or if promyelocytes are noted, a manual differential will be performed. Immature Gran Absolute 0.63(H) 0.00 - 0.04 x10(3)/[facility] Blood specimen (specimen) 04/08/2020 12:30 AM EST 04/08/2020 12:38 AM EST Narrative Resulting Agency Comment Spec In Lab Anjelica Jordan APRN HEMATOLOGY ORDER MAGAN [facility] [place] [address] * (ABNORMAL) Hemogram (04/08/2020 12:30 AM EST) White Blood Cell 16.1(H) 4.0 - 9.5 x10(3)/[facility] Red Blood Cell 3.24(L) 4.00 - 5.21 x10(6)/ L [facility] Hemoglobin 9.8(L) 11.7 - 15.5 gm/dL [facility] Hematocrit 28.6(L) 35.7 - 45.8 % [facility] Mean Cell Volume 88.3 82.6 - 94.4 fL [facility] Mean Cell Hemoglobin 30.2 27.1 - 32.0 pg [facility] Mean Cell Hemoglobin Concentration 34.3 31.7 - 35.0 gm/dL [facility] Platelet 477(H) 145 - 357 x10(3)/[facility] RDW Standard Deviation 43.0 37.0 - 46.0 fL [facility] RDW coefficient of variation 13.2 11.5 - 14.1 % [facility] Mean Platelet Volume 10.0 7.6 - 12.9 fL [facility] NRBC% auto 0.0 % [facility] NRBC Absolute 0.000 0.000 - 0.000 x10(3)/mc L [facility] Blood specimen (specimen) 04/08/2020 12:30 AM EST 04/08/2020 12:38 AM EST Narrative Resulting Agency Comment Spec In Lab Anjelica Jordan APRN HEMATOLOGY ORDER MAGAN Performing Organization Address City/[facility]/ZIP Co de Phone Number [facility] [place] [address] * Phosphorus (04/08/2020 12:30 AM EST) Phosphorus 3.1 2.5 - 4.5 mg/dL [facility] Blood specimen (specimen) 04/08/2020 12:30 AM EST 04/08/2020 12:38 AM EST Narrative Resulting Agency Comment Spec In Lab Anjelica Jordan APRN CHEMISTRY ORDERA BLES Performing Organization Address [facility] Co de Phone Number [facility] [place] [address] * Magnesium (04/08/2020 12:30 AM EST) Magnesium 0.69 0.69 - 1.07 mmol/L [facility] Blood specimen (specimen) 04/08/2020 12:30 AM EST 04/08/2020 12:38 AM EST Narrative Resulting Agency Comment Spec In Lab Anjelica Jordan APRN CHEMISTRY ORDERA BLES Performing Organization Address [facility] Co de Phone Number [facility] [place] [address] * (ABNORMAL) Basic Metabolic Panel (non-fasting) (04/08/2020 12:30 AM EST) Glucose 147 65 - 199 mg/dL [facility] Comment:Diabetes: >=200 mg/d L plus symptoms Blood Urea Nitrogen 15 8 - 18 mg/dL [facility] Creatinine 0.29(L) 0.70 - 1.20 mg/dL [facility] Sodium 132(L) 135 - 145 mmol/L [facility] Potassium 3.5 3.5 - 5.0 mmol/L [facility] Comment: Please note: ??Patients with WBC >100,000 may have falsely elevated Potassium levels. ??For accurate Potassium quantification in these patients send serum separator tube (gold top) for subsequent determinations. ??Contact the Clinical Chemistry Laboratory if there are any questions. Chloride 101 98 - 107 mmol/L [facility] Carbon Dioxide 24 22 - 31 mmol/L [facility] Anion Gap 7 5 - 15 mmol/L [facility] Calcium 7.7(L) 8.5 - 10.5 mg/dL [facility] Est Glomerular Filtration Rate 115 >=60 mL/min/1. 73 m?? [facility] Comment: This patient? s estimated [...] Agency Comment Spec In Lab Anjelica Jordan RESPIRATORY MEDICINE PHYSICIAN CHEMISTRY ORDERA BLES [facility] [place] [address] * POCT Glucose (04/08/2020 12:06 AM EST) Glucose, POC 152 65 - 199 mg/dL [facility] Comment: Supplemental ranges: <140 mg/dL before meals <180 mg/dL all other times of the day Blood specimen (specimen) 04/08/2020 12:06 AM EST 04/08/2020 12:06 AM EST Davian Carolina MD POINT OF CARE TEST ORDERABLES [facility] [place] [address] * POCT Glucose (04/07/2020 7:42 PM EST) Glucose, POC 137 65 - 199 mg/dL [facility] Comment: Supplemental ranges: <140 mg/dL before meals <180 mg/dL all other times of the day Blood specimen (specimen) 04/07/2020 7:42 PM EST 04/07/2020 7:42 PM EST Davian Carolina MD POINT OF CARE TEST ORDERABLES Performing Organization Address City/[facility]/ZIP Co de Phone Number [facility] [place] [address] * POCT Glucose (04/07/2020 3:46 PM EST) Glucose, POC 148 65 - 199 mg/dL [facility] Comment: Supplemental ranges: <140 mg/dL before meals <180 mg/dL all other times of the day Blood specimen (specimen) 04/07/2020 3:46 PM EST 04/07/2020 3:46 PM EST Davian Carolina MD POINT OF CARE TEST ORDERABLES [facility] [place] [address] * POCT Glucose (04/07/2020 11:18 AM EST) Glucose, POC 154 65 - 199 mg/dL [facility] Comment: Supplemental ranges: <140 mg/dL before meals <180 mg/dL all other times of the day Blood specimen (specimen) 04/07/2020 11:18 AM EST 04/07/2020 11:18 AM EST Davian Carolina MD POINT OF CARE TEST ORDERABLES Performing Organization Address City/[facility]/ZIP Co de Phone Number [facility] [place] [address] * POCT Glucose (04/07/2020 7:32 AM EST) Pathologist [facility] [place] Glucose, POC 138 65 - 199 mg/dL [facility] Comment: Supplemental ranges: <140 mg/dL before meals <180 mg/dL all other times of the day Blood specimen (specimen) 04/07/2020 7:32 AM EST 04/07/2020 7:32 AM EST Davian Carolina MD POINT OF CARE TEST ORDERABLES [facility] [place] [address] * (ABNORMAL) Differential, Automated (04/07/2020 3:50 AM EST) [facility] Neutrophil % 66.9 % [facility] Neutrophil Absolute 9.01(H) 1.70 - 6.10 x10(3)/mc L [facility] Lymph % 10.8 % [facility] Lymphocytes Abs 1.5 0.9 - 3.2 x10(3)/mc L [facility] Monocyte % 12.5 % [facility] Monocyte Abs 1.7(H) 0.3 - 0.9 x10(3)/mc L [facility] Eos % 4.8 % [facility] Eosinophils Abs 0.6(H) 0.0 - 0.4 x10(3)/mc L [facility] Basophil % 0.9 % [facility] Baso Absolute 0.1 0.0 - 0.1 x10(3)/mc L [facility] Immature Gran % 4.10 % [facility] Comment: Immature granulocytes(IG's)percentage and absolute count will include metamyelocytes, myelocytes, and promyelocytes. Blood smears from CBCs yielding IG's will be scanned manually for concordance. If this scan disagrees with the automated IG or if promyelocytes are noted, a manual differential will be performed. Immature Gran Absolute 0.55(H) 0.00 - 0.04 x10(3)/ L [facility] Blood specimen (specimen) 04/07/2020 3:50 AM EST 04/07/2020 4:01 AM EST Narrative Resulting Agency Comment Spec In Lab Anjelica Jordan APRN HEMATOLOGY ORDER MAGAN [facility] [place] [address] * (ABNORMAL) Hemogram (04/07/2020 3:50 AM EST) White Blood Cell 13.5(H) 4.0 - 9.5 x10(3)/ L [facility] Red Blood Cell 3.14(L) 4.00 - 5.21 x10(6)/mc L [facility] Hemoglobin 9.6(L) 11.7 - 15.5 gm/dL [facility] Hematocrit 28.1(L) 35.7 - 45.8 % [facility] Mean Cell Volume 89.5 82.6 - 94.4 fL [facility] Mean Cell Hemoglobin 30.6 27.1 - 32.0 pg [facility] Mean Cell Hemoglobin Concentration 34.2 31.7 - 35.0 gm/dL [facility] Platelet 453(H) 145 - 357 x10(3)/ L [facility] RDW Standard Deviation 44.5 37.0 - 46.0 fL [facility] RDW coefficient of variation 13.5 11.5 - 14.1 % [facility] Mean Platelet Volume 9.7 7.6 - 12.9 fL [facility] NRBC% auto 0.0 % [facility] NRBC Absolute 0.000 0.000 - 0.000 x10(3)/mc L [facility] Blood specimen (specimen) 04/07/2020 3:50 AM EST 04/07/2020 4:01 AM EST Narrative Resulting Agency Comment Spec In Lab Anjelica Jordan APRN HEMATOLOGY ORDER MAGAN Performing Organization Address City/[facility]/ZIP Co de Phone Number [facility] [place] [address] * Phosphorus (04/07/2020 3:50 AM EST) Phosphorus 3.3 2.5 - 4.5 mg/dL [facility] Blood specimen (specimen) 04/07/2020 3:50 AM EST 04/07/2020 4:01 AM EST Narrative Resulting Agency Comment Spec In Lab Anjelica Jordan APRN CHEMISTRY ORDERA BLES Performing Organization Address [facility] Co de Phone Number [facility] [place] [address] * Magnesium (04/07/2020 3:50 AM EST) Magnesium 0.82 0.69 - 1.07 mmol/L [facility] Blood specimen (specimen) 04/07/2020 3:50 AM EST 04/07/2020 4:01 AM EST Narrative Resulting Agency Comment Spec In Lab Anjelica Jordan APRN CHEMISTRY ORDERA BLES Performing Organization Address City/[facility]/ZIP Co de Phone Number [facility] [place] [address] * (ABNORMAL) Basic Metabolic Panel (non-fasting) (04/07/2020 3:50 AM EST) Glucose 166 65 - 199 mg/dL [facility] Comment:Diabetes: >=200 mg/d L plus symptoms Blood Urea Nitrogen 16 8 - 18 mg/dL [facility] Creatinine 0.34(L) 0.70 - 1.20 mg/dL [facility] Sodium 134(L) 135 - 145 mmol/L [facility] Potassium 3.6 3.5 - 5.0 mmol/L [facility] Comment: Please note: ??Patients with WBC >100,000 may have falsely elevated Potassium levels. ??For accurate Potassium quantification in these patients send serum separator tube (gold top) for subsequent determinations. ??Contact the Clinical Chemistry Laboratory if there are any questions. Chloride 101 98 - 107 mmol/L [facility] Carbon Dioxide 24 22 - 31 mmol/L [facility] Anion Gap 9 5 - 15 mmol/L [facility] Calcium 7.7(L) 8.5 - 10.5 mg/dL [facility] Est Glomerular Filtration Rate 109 >=60 mL/min/1. 73 m?? [facility] Comment: This patient? s estimated [...] Agency Comment Spec In Lab Anjelica Jordan RESPIRATORY MEDICINE PHYSICIAN CHEMISTRY ORDERA BLES [facility] [place] [address] * POCT Glucose (04/07/2020 3:41 AM EST) Glucose, POC 160 65 - 199 mg/dL [facility] Comment: Supplemental ranges: <140 mg/dL before meals <180 mg/dL all other times of the day Blood specimen (specimen) 04/07/2020 3:41 AM EST 04/07/2020 3:41 AM EST Davian Carolina MD POINT OF CARE TEST ORDERABLES [facility] [place] [address] * POCT Glucose (04/06/2020 11:51 PM EST) Glucose, POC 159 65 - 199 mg/dL [facility] Comment: Supplemental ranges: <140 mg/dL before meals <180 mg/dL all other times of the day Blood specimen (specimen) 04/06/2020 11:51 PM EST 04/06/2020 11:51 PM EST Davian Carolina MD POINT OF CARE TEST ORDERABLES [facility] [place] [address] * POCT Glucose (04/06/2020 8:06 PM EST) Glucose, POC 145 65 - 199 mg/dL [facility] Comment: Supplemental ranges: <140 mg/dL before meals <180 mg/dL all other times of the day Blood specimen (specimen) 04/06/2020 8:06 PM EST 04/06/2020 8:06 PM EST Davian Carolina MD POINT OF CARE TEST ORDERABLES [facility] [place] [address] * POCT Glucose (04/06/2020 4:02 PM EST) Glucose, POC 177 65 - 199 mg/dL [facility] Comment: Supplemental ranges: <140 mg/dL before meals <180 mg/dL all other times of the day Blood specimen (specimen) 04/06/2020 4:02 PM EST 04/06/2020 4:02 PM EST Davian Carolina MD POINT OF CARE TEST ORDERABLES [facility] [place] [address] * POCT Glucose (04/06/2020 12:12 PM EST) Glucose, POC 156 65 - 199 mg/dL [facility] Comment: Supplemental ranges: <140 mg/dL before meals <180 mg/dL all other times of the day Blood specimen (specimen) 04/06/2020 12:12 PM EST 04/06/2020 12:12 PM EST Davian Carolina MD POINT OF CARE TEST ORDERABLES [facility] [place] [address] * POCT Glucose (04/06/2020 7:50 AM EST) Glucose, POC 170 65 - 199 mg/dL [facility] Comment: Supplemental ranges: <140 mg/dL before meals <180 mg/dL all other times of the day Blood specimen (specimen) 04/06/2020 7:50 AM EST 04/06/2020 7:50 AM EST Davian Carolina MD POINT OF CARE TEST ORDERABLES [facility] [place] [address] * POCT Glucose (04/06/2020 4:43 AM EST) Glucose, POC 198 65 - 199 mg/dL [facility] Comment: Supplemental ranges: <140 mg/dL before meals <180 mg/dL all other times of the day Blood specimen (specimen) 04/06/2020 4:43 AM EST 04/06/2020 4:43 AM EST Davian Carolina MD POINT OF CARE TEST ORDERABLES [facility] [place] [address] * (ABNORMAL) Differential, Automated (04/06/2020 1:30 AM EST) Neutrophil % 77.8 % [facility] Neutrophil Absolute 12.95(H) 1.70 - 6.10 x10(3)/ L [facility] Lymph % 6.2 % [facility] Lymphocytes Abs 1.0 0.9 - 3.2 x10(3)/[facility] Monocyte % 9.8 % [facility] Monocyte Abs 1.6(H) 0.3 - 0.9 x10(3)/ L [facility] Eos % 0.8 % [facility] Eosinophils Abs 0.1 0.0 - 0.4 x10(3)/[facility] Basophil % 0.5 % [facility] Baso Absolute 0.1 0.0 - 0.1 x10(3)/ L [facility] Immature Gran % 4.90 % [facility] Comment: Immature granulocytes(IG's)percentage and absolute count will include metamyelocytes, myelocytes, and promyelocytes. Blood smears from CBCs yielding IG's will be scanned manually for concordance. If this scan disagrees with the automated IG or if promyelocytes are noted, a manual differential will be performed. Immature Gran Absolute 0.81(H) 0.00 - 0.04 x10(3)/ L [facility] Blood specimen (specimen) 04/06/2020 1:30 AM EST 04/06/2020 1:40 AM EST Narrative Resulting Agency Comment Spec In Lab Anjelica Jordan APRN HEMATOLOGY ORDER MAGAN [facility] [place] [address] * (ABNORMAL) Hemogram (04/06/2020 1:30 AM EST) White Blood Cell 16.7(H) 4.0 - 9.5 x10(3)/mc L [facility] Red Blood Cell 3.04(L) 4.00 - 5.21 x10(6)/mc L [facility] Hemoglobin 9.2(L) 11.7 - 15.5 gm/dL [facility] Hematocrit 27.3(L) 35.7 - 45.8 % [facility] Mean Cell Volume 89.8 82.6 - 94.4 fL [facility] Mean Cell Hemoglobin 30.3 27.1 - 32.0 pg [facility] Mean Cell Hemoglobin Concentration 33.7 31.7 - 35.0 gm/dL [facility] Platelet 445(H) 145 - 357 x10(3)/mc L [facility] RDW Standard Deviation 43.9 37.0 - 46.0 [facility] RDW coefficient of variation 13.2 11.5 - 14.1 % [facility] Mean Platelet Volume 9.9 7.6 - 12.9 fL [facility] NRBC% auto 0.0 % [facility] NRBC Absolute 0.000 0.000 - 0.000 x10(3)/ L [facility] Blood specimen (specimen) 04/06/2020 1:30 AM EST 04/06/2020 1:40 AM EST Narrative Resulting Agency Comment Spec In Lab Anjelica Jordan APRN HEMATOLOGY ORDER MAGAN [facility] [place] [address] * Phosphorus (04/06/2020 1:30 AM EST) Phosphorus 3.3 2.5 - 4.5 mg/dL [facility] Blood specimen (specimen) 04/06/2020 1:30 AM EST 04/06/2020 1:40 AM EST Narrative Resulting Agency Comment Spec In Lab Anjelica Jordan RESPIRATORY MEDICINE PHYSICIAN CHEMISTRY ORDERA BLES Performing Organization Address [facility] Co de Phone Number [facility] [place] [address] * Magnesium (04/06/2020 1:30 AM EST) Pathologist [facility] [place] Magnesium 0.88 0.69 - 1.07 mmol/L [facility] Blood specimen (specimen) 04/06/2020 1:30 AM EST 04/06/2020 1:40 AM EST Narrative Resulting Agency Comment Spec In Lab Anjelica Jordan RESPIRATORY MEDICINE PHYSICIAN CHEMISTRY ORDERA BLES Performing Organization Address [facility] Co de Phone Number [facility] [place] [address] * (ABNORMAL) Basic Metabolic Panel (non-fasting) (04/06/2020 1:30 AM EST) Pathologist [facility] [place] Glucose 180 65 - 199 mg/dL [facility] Comment:Diabetes: >=200 mg/d L plus symptoms Blood Urea Nitrogen 16 8 - 18 mg/dL [facility] Creatinine 0.42(L) 0.70 - 1.20 mg/dL [facility] Sodium 137 135 - 145 mmol/L [facility] Potassium 3.6 3.5 - 5.0 mmol/L [facility] Comment: Please note: ??Patients with WBC >100,000 may have falsely elevated Potassium levels. ??For accurate Potassium quantification in these patients send serum separator tube (gold top) for subsequent determinations. ??Contact the Clinical Chemistry Laboratory if there are any questions. Chloride 102 98 - 107 mmol/L [facility] Carbon Dioxide 26 22 - 31 mmol/L [facility] Anion Gap 9 5 - 15 mmol/L [facility] Calcium 7.7(L) 8.5 - 10.5 mg/dL [facility] Est Glomerular Filtration Rate 102 >=60 mL/min/1. 73 m?? [facility] Comment: This patient? s estimated [...] Lab Anjelica Jordan APRN CHEMISTRY ORDERA BLES [facility] [place] [address] * POCT Glucose (04/05/2020 11:23 PM EST) Glucose, POC 186 65 - 199 mg/dL [facility] Comment: Supplemental ranges: <140 mg/dL before meals <180 mg/dL all other times of the day Blood specimen (specimen) 04/05/2020 11:23 PM EST 04/05/2020 11:23 PM EST Davian Carolina MD POINT OF CARE TEST ORDERABLES Performing Organization Address City/[facility]/ZIP Co de Phone Number [facility] [place] [address] * POCT Glucose (04/05/2020 8:03 PM EST) Glucose, POC 150 65 - 199 mg/dL [facility] Comment: Supplemental ranges: <140 mg/dL before meals <180 mg/dL all other times of the day Blood specimen (specimen) 04/05/2020 8:03 PM EST 04/05/2020 8:03 PM EST Davian Carolina MD POINT OF CARE TEST ORDERABLES Performing Organization Address City/[facility]/ZIP Co de Phone Number [facility] [place] [address] * POCT Glucose (04/05/2020 4:11 PM EST) Glucose, POC 171 65 - 199 mg/dL [facility] Comment: Supplemental ranges: <140 mg/dL before meals <180 mg/dL all other times of the day Blood specimen (specimen) 04/05/2020 4:11 PM EST 04/05/2020 4:11 PM EST Davian Carolina MD POINT OF CARE TEST ORDERABLES Performing Organization Address [facility] Co de Phone Number [facility] [place] [address] * XR Chest PA & Lateral (Generic) [...] please contact the number below. ? Narrative 04/05/2020 3:28 PM EST EXAMINATION: XR [...] during NG placement with persistent leukocyotosis and [id number] TECHNIQUE: PA and lateral views of the [...] (ABNORMAL) POCT Glucose (04/05/2020 11:36 AM EST) Glucose, POC 202(H) 65 - 199 mg/dL [facility] Comment: Supplemental ranges: <140 mg/dL before meals <180 mg/dL all other times of the day Blood specimen (specimen) 04/05/2020 11:36 AM EST 04/05/2020 11:36 AM EST Davian Carolina MD POINT OF CARE TEST ORDERABLES Performing Organization Address City/State/[facility] Co de Phone Number [facility] [place] [address] * POCT Glucose (04/05/2020 8:06 AM EST) Glucose, POC 168 65 - 199 mg/dL [facility] Comment: Supplemental ranges: <140 mg/dL before meals <180 mg/dL all other times of the day Blood specimen (specimen) 04/05/2020 8:06 AM EST 04/05/2020 8:06 AM EST Davian Carolina MD POINT OF CARE TEST ORDERABLES Performing Organization Address City/[facility]/ZIP Co de Phone Number [facility] [place] [address] * POCT Glucose (04/05/2020 4:03 AM EST) [facility] Glucose, POC 167 65 - 199 mg/dL [facility] Comment: Supplemental ranges: <140 mg/dL before meals <180 mg/dL all other times of the day Blood specimen (specimen) 04/05/2020 4:03 AM EST 04/05/2020 4:03 AM EST Davian Carolina MD POINT OF CARE TEST ORDERABLES Performing Organization Address [facility] Co de Phone Number [facility] [place] [address] * Scan, Peripheral Blood (04/05/2020 1:10 AM EST) [facility] Plat estimate Increased [facility] RBC Morphology Normal [facility] Dohle Bodies Present [facility] Blood specimen (specimen) 04/05/2020 1:10 AM EST 04/05/2020 1:25 AM EST Narrative Resulting Agency Comment Spec In Lab Anjelica Jordan APRN HEMATOLOGY ORDER MAGAN Performing Organization Address City/[facility]/ZIP Co de Phone Number [facility] [place] [address] * (ABNORMAL) Differential, Automated (04/05/2020 1:10 AM EST) [facility] Neutrophil % 81.7 % [facility] Neutrophil Absolute 17.48(H) 1.70 - 6.10 x10(3)/mc L [facility] Lymph % 6.8 % [facility] Lymphocytes Abs 1.4 0.9 - 3.2 x10(3)/mc L [facility] Monocyte % 7.2 % [facility] Monocyte Abs 1.5(H) 0.3 - 0.9 x10(3)/[facility] Eos % 0.7 % [facility] Eosinophils Abs 0.2 0.0 - 0.4 x10(3)/[facility] Basophil % 0.5 % [facility] Baso Absolute 0.1 0.0 - 0.1 x10(3)/[facility] Immature Gran % 3.10 % [facility] Comment: Immature granulocytes(IG's)percentage and absolute count will include metamyelocytes, myelocytes, and promyelocytes. Blood smears from CBCs yielding IG's will be scanned manually for concordance. If this scan disagrees with the automated IG or if promyelocytes are noted, a manual differential will be performed. Immature Gran Absolute 0.67(H) 0.00 - 0.04 x10(3)/[facility] LABORATORY Blood specimen (specimen) 04/05/2020 1:10 AM EST 04/05/2020 1:25 AM EST Narrative Resulting Agency Comment Spec In Lab Anjelica Jordan APRN HEMATOLOGY ORDER MAGAN Performing Organization Address City/State/[facility] Co de Phone Number [facility] [place] [address] * (ABNORMAL) Hemogram (04/05/2020 1:10 AM EST) White Blood Cell 21.4(H) 4.0 - 9.5 x10(3)/[facility] LABORATORY Red Blood Cell 3.33(L) 4.00 - 5.21 x10(6)/[facility] LABORATORY Hemoglobin 9.9(L) 11.7 - 15.5 gm/dL [facility] Hematocrit 30.0(L) 35.7 - 45.8 % [facility] Mean Cell Volume 90.1 82.6 - 94.4 fL [facility] Mean Cell Hemoglobin 29.7 27.1 - 32.0 pg [facility] Mean Cell Hemoglobin Concentration 33.0 31.7 - 35.0 gm/dL [facility] Platelet 444(H) 145 - 357 x10(3)/mc L [facility] RDW Standard Deviation 42.1 37.0 - 46.0 fL [facility] RDW coefficient of variation 12.7 11.5 - 14.1 % [facility] Mean Platelet Volume 10.0 7.6 - 12.9 fL [facility] NRBC% auto 0.0 % [facility] NRBC Absolute 0.000 0.000 - 0.000 x10(3)/mc L [facility] Blood specimen (specimen) 04/05/2020 1:10 AM EST 04/05/2020 1:25 AM EST Narrative Resulting Agency Comment Spec In Lab Anjelica Jordan APRN HEMATOLOGY ORDER MAGAN Performing Organization Address [facility] Co de Phone Number [facility] [place] [phone] * Phosphorus (04/05/2020 1:10 AM EST) Phosphorus 2.9 2.5 - 4.5 mg/dL [facility] Blood specimen (specimen) 04/05/2020 1:10 AM EST 04/05/2020 1:25 AM EST Narrative Resulting Agency Comment Spec In Lab Anjelica Jordan APRN CHEMISTRY ORDERA BLES Performing Organization Address City/[facility] Co de Phone Number [facility] [place] [address] * Magnesium (04/05/2020 1:10 AM EST) Magnesium 0.82 0.69 - 1.07 mmol/L [facility] Blood specimen (specimen) 04/05/2020 1:10 AM EST 04/05/2020 1:25 AM EST Narrative Resulting Agency Comment Spec In Lab Anjelica Jordan JESUS ALBERTO CHEMISTRY ORDERA BLES [facility] [place] [address] * (ABNORMAL) Basic Metabolic Panel (non-fasting) (04/05/2020 1:10 AM EST) Glucose 175 65 - 199 mg/dL [facility] Comment:Diabetes: >=200 mg/d L plus symptoms Blood Urea Nitrogen 11 8 - 18 mg/dL [facility] Creatinine 0.36(L) 0.70 - 1.20 mg/dL [facility] Sodium 134(L) 135 - 145 mmol/L [facility] Potassium 3.4(L) 3.5 - 5.0 mmol/L [facility] Comment: Please note: ??Patients with WBC >100,000 may have falsely elevated Potassium levels. ??For accurate Potassium quantification in these patients send serum separator tube (gold top) for subsequent determinations. ??Contact the Clinical Chemistry Laboratory if there are any questions. Chloride 101 98 - 107 mmol/L [facility] Carbon Dioxide 26 22 - 31 mmol/L [facility] Anion Gap 7 5 - 15 mmol/L [facility] Calcium 8.0(L) 8.5 - 10.5 mg/dL [facility] Est Glomerular Filtration Rate 107 >=60 mL/min/1. 73 m?? [facility] Comment: This patient? s estimated [...] ORDERA BLES Performing Organization Address [facility]/ZIP Co de Phone Number [facility] [place] [address] * POCT Glucose (04/05/2020 1:09 AM EST) Glucose, POC 172 65 - 199 mg/dL [facility] Comment: Supplemental ranges: <140 mg/dL before meals <180 mg/dL all other times of the day Blood specimen (specimen) 04/05/2020 1:09 AM EST 04/05/2020 1:09 AM EST Davian Carolina MD POINT OF CARE TEST ORDERABLES Performing Organization Address [facility] Co de Phone Number [facility] [place] [address] * POCT Glucose (04/04/2020 10:11 PM EST) Glucose, POC 197 65 - 199 mg/dL [facility] Comment: Supplemental ranges: <140 mg/dL before meals <180 mg/dL all other times of the day Blood specimen (specimen) 04/04/2020 10:11 PM EST 04/04/2020 10:11 PM EST Davian Carolina MD POINT OF CARE TEST ORDERABLES Performing Organization Address [facility]/ZIP Co de Phone Number [facility] [place] [address] * POCT Glucose (04/04/2020 8:22 PM EST) Glucose, POC 191 65 - 199 mg/dL [facility] Comment: Supplemental ranges: <140 mg/dL before meals <180 mg/dL all other times of the day Blood specimen (specimen) 04/04/2020 8:22 PM EST 04/04/2020 8:22 PM EST Davian Carolina MD POINT OF CARE TEST ORDERABLES Performing Organization Address [facility] Phone Number [facility] [place] [address] * POCT Glucose (04/04/2020 4:36 PM EST) Glucose, POC 190 65 - 199 mg/dL [facility] Comment: Supplemental ranges: <140 mg/dL before meals <180 mg/dL all other times of the day Blood specimen (specimen) 04/04/2020 4:36 PM EST 04/04/2020 4:36 PM EST Davian Carolina MD POINT OF CARE TEST ORDERABLES Performing Organization Address [facility] de Phone Number [facility] [place] [address] * POCT Glucose (04/04/2020 11:52 AM EST) Glucose, POC 178 65 - 199 mg/dL [facility] Comment: Supplemental ranges: <140 mg/dL before meals <180 mg/dL all other times of the day Blood specimen (specimen) 04/04/2020 11:52 AM EST 04/04/2020 11:52 AM EST Davian Carolina MD POINT OF CARE TEST ORDERABLES Performing Organization Address [facility] Phone Number [facility] [place] [address] * (ABNORMAL) POCT Glucose (04/04/2020 7:38 AM EST) Glucose, POC 220(H) 65 - 199 mg/dL [facility] Comment: Supplemental ranges: <140 mg/dL before meals <180 mg/dL all other times of the day Blood specimen (specimen) 04/04/2020 7:38 AM EST 04/04/2020 7:38 AM EST Davian Carolina MD POINT OF CARE TEST ORDERABLES Performing Organization Address [facility] Co de Phone Number [facility] [place] [address] * (ABNORMAL) POCT Glucose (04/04/2020 5:20 AM EST) Glucose, POC 203(H) 65 - 199 mg/dL [facility] Comment: Supplemental ranges: <140 mg/dL before meals <180 mg/dL all other times of the day Blood specimen (specimen) 04/04/2020 5:20 AM EST 04/04/2020 5:20 AM EST Davian Carolina MD POINT OF CARE TEST ORDERABLES Performing Organization Address [facility] Co de Phone Number [facility] [place] [address] * POCT Glucose (04/04/2020 5:19 AM EST) Glucose, POC 198 65 - 199 mg/dL [facility] Comment: Supplemental ranges: <140 mg/dL before meals <180 mg/dL all other times of the day Blood specimen (specimen) 04/04/2020 5:19 AM EST 04/04/2020 5:19 AM EST Davian Carolina MD POINT OF CARE TEST ORDERABLES Performing Organization Address City/[facility] Co de Phone Number [facility] [place] [address] * (ABNORMAL) Differential, Automated (04/04/2020 3:26 AM EST) Neutrophil % 86.3 % [facility] LABORATORY Neutrophil Absolute 17.68(H) 1.70 - 6.10 x10(3)/mc L [facility] Lymph % 4.5 % [facility] Lymphocytes Abs 0.9 0.9 - 3.2 x10(3)/mc L [facility] Monocyte % 6.0 % [facility] Monocyte Abs 1.2(H) 0.3 - 0.9 x10(3)/[facility] LABORATORY Eos % 1.5 % [facility] Eosinophils Abs 0.3 0.0 - 0.4 x10(3)/[facility] LABORATORY Basophil % 0.3 % [facility] Baso Absolute 0.1 0.0 - 0.1 x10(3)/[facility] LABORATORY Immature Gran % 1.40 % [facility] Comment: Immature granulocytes(IG's)percentage and absolute count will include metamyelocytes, myelocytes, and promyelocytes. Blood smears from CBCs yielding IG's will be scanned manually for concordance. If this scan disagrees with the automated IG or if promyelocytes are noted, a manual differential will be performed. Immature Gran Absolute 0.29(H) 0.00 - 0.04 x10(3)/[facility] LABORATORY Blood specimen (specimen) 04/04/2020 3:26 AM EST 04/04/2020 3:32 AM EST Narrative Resulting Agency Comment Spec In Lab Anjelica Jordan APRN HEMATOLOGY ORDER MAGAN [facility] [place] [address] * (ABNORMAL) Hemogram (04/04/2020 3:26 AM EST) White Blood Cell 20.5(H) 4.0 - 9.5 x10(3)/[facility] LABORATORY Red Blood Cell 3.01(L) 4.00 - 5.21 x10(6)/[facility] LABORATORY Hemoglobin 9.1(L) 11.7 - 15.5 gm/dL [facility] Hematocrit 27.1(L) 35.7 - 45.8 % [facility] Mean Cell Volume 90.0 82.6 - 94.4 fL [facility] Mean Cell Hemoglobin 30.2 27.1 - 32.0 pg [facility] Mean Cell Hemoglobin Concentration 33.6 31.7 - 35.0 gm/dL [facility] Platelet 367(H) 145 - 357 x10(3)/mc L [facility] RDW Standard Deviation 42.0 37.0 - 46.0 fL [facility] RDW coefficient of variation 12.6 11.5 - 14.1 % [facility] Mean Platelet Volume 9.6 7.6 - 12.9 fL [facility] NRBC% auto 0.0 % [facility] NRBC Absolute 0.000 0.000 - 0.000 x10(3)/mc L [facility] Blood specimen (specimen) 04/04/2020 3:26 AM EST 04/04/2020 3:32 AM EST Narrative Resulting Agency Comment Spec In Lab Anjelica Jordan APRN HEMATOLOGY ORDER MAGAN Performing Organization Address City/[facility]/ZIP Co de Phone Number [facility] [place] [address] * (ABNORMAL) Phosphorus (04/04/2020 3:26 AM EST) Phosphorus 2.4(L) 2.5 - 4.5 mg/dL [facility] Blood specimen (specimen) 04/04/2020 3:26 AM EST 04/04/2020 3:32 AM EST Narrative Resulting Agency Comment Spec In Lab Anjelica Jordan APRN CHEMISTRY ORDERA BLES Performing Organization Address City/[facility]/ZIP Co de Phone Number [facility] [place] [address] * Magnesium (04/04/2020 3:26 AM EST) Magnesium 0.84 0.69 - 1.07 mmol/L [facility] Blood specimen (specimen) 04/04/2020 3:26 AM EST 04/04/2020 3:32 AM EST Narrative Resulting Agency Comment Spec In Lab Anjelica Jordan RESPIRATORY MEDICINE PHYSICIAN CHEMISTRY ORDERA GEE [facility] [place] [address] * (ABNORMAL) Basic Metabolic Panel (non-fasting) (04/04/2020 3:26 AM EST) Glucose 181 65 - 199 mg/dL [facility] Comment:Diabetes: >=200 mg/d L plus symptoms Blood Urea Nitrogen 13 8 - 18 mg/dL [facility] Creatinine 0.34(L) 0.70 - 1.20 mg/dL [facility] Sodium 134(L) 135 - 145 mmol/L [facility] Potassium 3.3(L) 3.5 - 5.0 mmol/L [facility] Comment: Please note: ??Patients with WBC >100,000 may have falsely elevated Potassium levels. ??For accurate Potassium quantification in these patients send serum separator tube (gold top) for subsequent determinations. ??Contact the Clinical Chemistry Laboratory if there are any questions. Chloride 101 98 - 107 mmol/L [facility] Carbon Dioxide 28 22 - 31 mmol/L [facility] Anion Gap 5 5 - 15 mmol/L [facility] Calcium 7.8(L) 8.5 - 10.5 mg/dL [facility] Est Glomerular Filtration Rate 109 >=60 mL/min/1. 73 m?? [facility] Comment: This patient? s estimated [...] ORDERA BLES Performing Organization Address [facility]/ZIP Co de Phone Number [facility] [place] [address] * POCT Glucose (04/04/2020 3:18 AM EST) Glucose, POC 172 65 - 199 mg/dL [facility] Comment: Supplemental ranges: <140 mg/dL before meals <180 mg/dL all other times of the day Blood specimen (specimen) 04/04/2020 3:18 AM EST 04/04/2020 3:18 AM EST Davian Carolina MD POINT OF CARE TEST ORDERABLES Performing Organization Address [facility] Co de Phone Number [facility] [place] [address] * POCT Glucose (04/04/2020 12:50 AM EST) Glucose, POC 145 65 - 199 mg/dL [facility] Comment: Supplemental ranges: <140 mg/dL before meals <180 mg/dL all other times of the day Blood specimen (specimen) 04/04/2020 12:50 AM EST 04/04/2020 12:50 AM EST Davian Carolina MD POINT OF CARE TEST ORDERABLES Performing Organization Address [facility] Co de Phone Number [facility] [place] [address] * POCT Glucose (04/03/2020 9:25 PM EST) Glucose, POC 173 65 - 199 mg/dL [facility] Comment: Supplemental ranges: <140 mg/dL before meals <180 mg/dL all other times of the day Blood specimen (specimen) 04/03/2020 9:25 PM EST 04/03/2020 9:25 PM EST Davian Carolina MD POINT OF CARE TEST ORDERABLES Performing Organization Address [facility] Co de Phone Number [facility] [place] [address] * POCT Glucose (04/03/2020 4:19 PM EST) Glucose, POC 197 65 - 199 mg/dL [facility] Comment: Supplemental ranges: <140 mg/dL before meals <180 mg/dL all other times of the day Blood specimen (specimen) 04/03/2020 4:19 PM EST 04/03/2020 4:19 PM EST Davian Carolina MD POINT OF CARE TEST ORDERABLES Performing Organization Address [facility] Phone Number [facility] [place] [address] * (ABNORMAL) Urinalysis Microscopic Exam (04/03/2020 2:22 PM EST) RBC, Urine 12(H) 0 - 4 /HPF [facility] WBC, Urine 6(H) 0 - 5 /HPF [facility] Squamous Epithelial Cells Raw Data, Urine 5(H) <=4 /HPF [facility] Transitional Epithelial Cells, Urine <1 <=1 /HPF [facility] Hyaline Casts, Urine <1 0 - 2 /LPF [facility] Urine specimen (specimen) 04/03/2020 2:22 PM EST 04/03/2020 2:54 PM EST Narrative Resulting Agency Comment Spec In Lab Anjelica Jordan APRN URINE ORDERABLES Performing Organization Address [facility] Co de Phone Number [facility] [place] [address] * (ABNORMAL) Urinalysis with reflex Culture (04/03/2020 2:22 PM EST) Glucose, Urine Dipstick Negative Negative mg/dL [facility] Protein, Urine Dipstick 30(A) Negative mg/dL [facility] Bilirubin, Urine Dipstick Negative Negative mg/dL [facility] Comment: Clinical correlation required for positive Urine Bilirubin results as false positive may occur with some drugs and drug related products. If a false positive is suspected a serum total bilirubin should be considered if clinically indicated. Urobilinogen, Urine Dipstick Normal Normal mg/dL [facility] pH, Urn (dipstick) 6.0 5.0 - 8.0 [facility] Blood, Urine Dipstick Negative Negative mg/dL [facility] Ketone, Urine Dipstick 40(A) Negative mg/dL [facility] Nitrite, Urine Dipstick Negative Negative [facility] Leukocytes, Urine Dipstick Negative Negative [facility] LABORATORY Appearance, Urine Dipstick Clear Clear [facility] Specific [place] Urine Automated 1.025 1.006 - 1.030 [facility] Color, Urine Dipstick Yellow Yellow [facility] Reflex to Culture No [facility] Urine specimen (specimen) 04/03/2020 2:22 PM EST 04/03/2020 2:54 PM EST Narrative Resulting Agency Comment Spec In Lab Anjelica Jordan APRN URINE ORDERABLES Performing Organization Address City/State/[facility] Co de Phone Number [facility] [place] [address] * POCT Glucose (04/03/2020 12:47 PM EST) Glucose, POC 151 65 - 199 mg/dL [facility] Comment: Supplemental ranges: <140 mg/dL before meals <180 mg/dL all other times of the day Blood specimen (specimen) 04/03/2020 12:47 PM EST 04/03/2020 12:47 PM EST Davian Carolina MD POINT OF CARE TEST ORDERABLES [facility] [place] [address] * XR Abdomen 1 view (Generic) (04/03/2020 [...] this report, please contact the number below. Anjelica Jordan APRN IMG DX ORDERABLE S * POCT Glucose (04/03/2020 5:18 AM EST) Glucose, POC 192 65 - 199 mg/dL [facility] Comment: Supplemental ranges: <140 mg/dL before meals <180 mg/dL all other times of the day Blood specimen (specimen) 04/03/2020 5:18 AM EST 04/03/2020 5:18 AM EST Davian Carolina MD POINT OF CARE TEST ORDERABLES Performing Organization Address City/State/[facility] Co de Phone Number [facility] [place] [address] * (ABNORMAL) Differential, Automated (04/03/2020 2:50 AM EST) Neutrophil % 91.6 % [facility] Neutrophil Absolute 16.61(H) 1.70 - 6.10 x10(3)/mc L [facility] Lymph % 2.9 % [facility] Lymphocytes Abs 0.5(L) 0.9 - 3.2 x10(3)/ L [facility] Monocyte % 4.7 % [facility] Monocyte Abs 0.8 0.3 - 0.9 x10(3)/ L [facility] Eos % 0.1 % [facility] Eosinophils Abs 0.0 0.0 - 0.4 x10(3)/mc L [facility] Basophil % 0.2 % [facility] Baso Absolute 0.0 0.0 - 0.1 x10(3)/mc L [facility] Immature Gran % 0.50 % [facility] Comment: Immature granulocytes(IG's)percentage and absolute count will include metamyelocytes, myelocytes, and promyelocytes. Blood smears from CBCs yielding IG's will be scanned manually for concordance. If this scan disagrees with the automated IG or if promyelocytes are noted, a manual differential will be performed. Immature Gran Absolute 0.09(H) 0.00 - 0.04 x10(3)/mc L [facility] Blood specimen (specimen) 04/03/2020 2:50 AM EST 04/03/2020 3:05 AM EST Narrative Resulting Agency Comment Spec In Lab Anjelica Jordan APRN HEMATOLOGY ORDER MAGAN Performing Organization Address City/State/[facility] Co de Phone Number [facility] [place] [address] * (ABNORMAL) Hemogram (04/03/2020 2:50 AM EST) White Blood Cell 18.1(H) 4.0 - 9.5 x10(3)/mc L [facility] Red Blood Cell 3.40(L) 4.00 - 5.21 x10(6)/mc L [facility] Hemoglobin 10.2(L) 11.7 - 15.5 gm/dL [facility] Hematocrit 30.9(L) 35.7 - 45.8 % [facility] Mean Cell Volume 90.9 82.6 - 94.4 fL [facility] Mean Cell Hemoglobin 30.0 27.1 - 32.0 pg [facility] Mean Cell Hemoglobin Concentration 33.0 31.7 - 35.0 gm/dL [facility] Platelet 380(H) 145 - 357 x10(3)/mc L [facility] RDW Standard Deviation 40.6 37.0 - 46.0 fL [facility] RDW coefficient of variation 12.3 11.5 - 14.1 % [facility] Mean Platelet Volume 10.0 7.6 - 12.9 fL [facility] NRBC% auto 0.0 % [facility] NRBC Absolute 0.000 0.000 - 0.000 x10(3)/mc L [facility] Blood specimen (specimen) 04/03/2020 2:50 AM EST 04/03/2020 3:05 AM EST Narrative Resulting Agency Comment Spec In Lab Anjelica Jordan APRN HEMATOLOGY ORDER MAGAN Performing Organization Address City/[facility] Co de Phone Number [facility] [place] [address] * (ABNORMAL) Phosphorus (04/03/2020 2:50 AM EST) Phosphorus 2.2(L) 2.5 - 4.5 mg/dL [facility] Blood specimen (specimen) 04/03/2020 2:50 AM EST 04/03/2020 3:05 AM EST Narrative Resulting Agency Comment Spec In Lab Anjelica Jordan RESPIRATORY MEDICINE PHYSICIAN CHEMISTRY ORDERA BLES Performing Organization Address [facility] Co de Phone Number [facility] [place] [address] * Magnesium (04/03/2020 2:50 AM EST) [facility] Magnesium 0.76 0.69 - 1.07 mmol/L [facility] Blood specimen (specimen) 04/03/2020 2:50 AM EST 04/03/2020 3:05 AM EST Narrative Resulting Agency Comment Spec In Lab Anjelica Jordan RESPIRATORY MEDICINE PHYSICIAN CHEMISTRY ORDERA BLES Performing Organization Address [facility] de Phone Number [facility] [place] [address] * (ABNORMAL) Basic Metabolic Panel (non-fasting) (04/03/2020 2:50 AM EST) Pathologist [facility] Glucose 162 65 - 199 mg/dL [facility] Comment:Diabetes: >=200 mg/d L plus symptoms Blood Urea Nitrogen 11 8 - 18 mg/dL [facility] Creatinine 0.37(L) 0.70 - 1.20 mg/dL [facility] Sodium 129(L) 135 - 145 mmol/L [facility] Potassium 3.8 3.5 - 5.0 mmol/L [facility] Comment: Please note: ??Patients with WBC >100,000 may have falsely elevated Potassium levels. ??For accurate Potassium quantification in these patients send serum separator tube (gold top) for subsequent determinations. ??Contact the Clinical Chemistry Laboratory if there are any questions. Chloride 96(L) 98 - 107 mmol/L [facility] Carbon Dioxide 23 22 - 31 mmol/L [facility] Anion Gap 10 5 - 15 mmol/L [facility] Calcium 7.6(L) 8.5 - 10.5 mg/dL [facility] Est Glomerular Filtration Rate 106 >=60 mL/min/1. 73 m?? [facility] Comment: This patient? s estimated [...] Lab Anjelica Jordan APRN CHEMISTRY ORDERA BLES [facility] [place] [address] * POCT Glucose (04/02/2020 10:57 PM EST) Glucose, POC 164 65 - 199 mg/dL [facility] Comment: Supplemental ranges: <140 mg/dL before meals <180 mg/dL all other times of the day Blood specimen (specimen) 04/02/2020 10:57 PM EST 04/02/2020 10:57 PM EST Davian Carolina MD POINT OF CARE TEST ORDERABLES [facility] [place] [address] * XR Chest One View (04/02/2020 7:21 [...] contact the number below. ? Narrative 04/02/2020 8:17 PM EST EXAMINATION: XR [...] Panel (non-fasting) (04/02/2020 6:15 PM EST) Glucose 92 65 - 199 mg/dL [facility] Comment:Diabetes: >=200 mg/d L plus symptoms Blood Urea Nitrogen 8 8 - 18 mg/dL [facility] Creatinine 0.40(L) 0.70 - 1.20 mg/dL [facility] Sodium 132(L) 135 - 145 mmol/L [facility] Potassium 3.9 3.5 - 5.0 mmol/L [facility] Comment: Please note: ??Patients with WBC >100,000 may have falsely elevated Potassium levels. ??For accurate Potassium quantification in these patients send serum separator tube (gold top) for subsequent determinations. ??Contact the Clinical Chemistry Laboratory if there are any questions. Chloride 96(L) 98 - 107 mmol/L [facility] Carbon Dioxide 22 22 - 31 mmol/L [facility] Anion Gap 14 5 - 15 mmol/L [facility] Calcium 7.7(L) 8.5 - 10.5 mg/dL [facility] Est Glomerular Filtration Rate 103 >=60 mL/min/1. 73 m?? [facility] Comment: This patient? s estimated [...] APRN CHEMISTRY ORDERA BLES Performing Organization Address City/[facility]/ZIP Co de Phone Number [facility] [place] [address] * POCT Glucose (04/02/2020 5:17 PM EST) Glucose, POC 85 65 - 199 mg/dL [facility] Comment: Supplemental ranges: <140 mg/dL before meals <180 mg/dL all other times of the day Blood specimen (specimen) 04/02/2020 5:17 PM EST 04/02/2020 5:17 PM EST Davian Carolina MD POINT OF CARE TEST ORDERABLES [facility] [place] [address] * UPPER GI ENDOSCOPY (04/02/2020 2:52 PM EST) Pathologist [facility] [place] UPPER GI ENDOSCOPY [facility] Endoscopy Procedure Date: 04/02/2020 2:52 PM ? Patient Name: Linda Abel ? Date of : 1945 ? Age: 74 ? Order #: [id number] ? Instrument Name: [id number] ? Procedure: ? Upper GI endoscopy Indications: ? Abnormal CT of the GI tract Providers: ? Anjelica Le Chandu, ? Alyse Tsang, Chela Rivas Referring MD: [...] GENERAL SURGICAL ORD ERABLES Performing Organization Address [facility] de Phone Number [employer] * POCT Glucose (04/02/2020 12:12 PM EST) Glucose, POC 106 65 - 199 mg/dL [facility] Comment: Supplemental ranges: <140 mg/dL before meals <180 mg/dL all other times of the day Blood specimen (specimen) 04/02/2020 12:12 PM EST 04/02/2020 12:12 PM EST Davian Carolina MD POINT OF CARE TEST ORDERABLES Performing Organization Address [facility] de Phone Number [facility] [place] [address] * POCT Glucose (04/02/2020 9:58 AM EST) Glucose, POC 104 65 - 199 mg/dL [facility] Comment: Supplemental ranges: <140 mg/dL before meals <180 mg/dL all other times of the day Blood specimen (specimen) 04/02/2020 9:58 AM EST 04/02/2020 9:58 AM EST Davian Carolina MD POINT OF CARE TEST ORDERABLES Performing Organization Address City/[facility]/ZIP Co de Phone Number [facility] [place] [address] * POCT Glucose (04/02/2020 8:04 AM EST) Pathologist [facility] [place] Glucose, POC 106 65 - 199 mg/dL [facility] Comment: Supplemental ranges: <140 mg/dL before meals <180 mg/dL all other times of the day Blood specimen (specimen) 04/02/2020 8:04 AM EST 04/02/2020 8:04 AM EST Davian Carolina MD POINT OF CARE TEST ORDERABLES Performing Organization Address [facility] de Phone Number [facility] [place] [address] * (ABNORMAL) Differential, Automated (04/02/2020 1:40 AM EST) [facility] Neutrophil % 88.6 % [facility] Neutrophil Absolute 14.39(H) 1.70 - 6.10 x10(3)/mc L [facility] Lymph % 6.2 % [facility] Lymphocytes Abs 1.0 0.9 - 3.2 x10(3)/ L [facility] Monocyte % 4.2 % [facility] Monocyte Abs 0.7 0.3 - 0.9 x10(3)/mc L [facility] Eos % 0.1 % [facility] Eosinophils Abs 0.0 0.0 - 0.4 x10(3)/mc L [facility] Basophil % 0.5 % [facility] Baso Absolute 0.1 0.0 - 0.1 x10(3)/mc L [facility] Immature Gran % 0.40 % [facility] Comment: Immature granulocytes(IG's)percentage and absolute count will include metamyelocytes, myelocytes, and promyelocytes. Blood smears from CBCs yielding IG's will be scanned manually for concordance. If this scan disagrees with the automated IG or if promyelocytes are noted, a manual differential will be performed. Immature Gran Absolute 0.07(H) 0.00 - 0.04 x10(3)/mc L [facility] Blood specimen (specimen) 04/02/2020 1:40 AM EST 04/02/2020 1:45 AM EST Narrative Resulting Agency Comment Spec In Lab Anjelica Jordan APRN HEMATOLOGY ORDER MAGAN [facility] [place] [address] * (ABNORMAL) Hemogram (04/02/2020 1:40 AM EST) White Blood Cell 16.2(H) 4.0 - 9.5 x10(3)/mc L [facility] Red Blood Cell 3.53(L) 4.00 - 5.21 x10(6)/mc L [facility] Hemoglobin 11.0(L) 11.7 - 15.5 gm/dL [facility] Hematocrit 31.1(L) 35.7 - 45.8 % [facility] Mean Cell Volume 88.1 82.6 - 94.4 fL [facility] Mean Cell Hemoglobin 31.2 27.1 - 32.0 pg [facility] Mean Cell Hemoglobin Concentration 35.4(H) 31.7 - 35.0 gm/dL [facility] Platelet 351 145 - 357 x10(3)/mc L [facility] RDW Standard Deviation 40.2 37.0 - 46.0 fL [facility] RDW coefficient of variation 12.4 11.5 - 14.1 % [facility] Mean Platelet Volume 10.2 7.6 - 12.9 fL [facility] NRBC% auto 0.0 % [facility] NRBC Absolute 0.000 0.000 - 0.000 x10(3)/mc L [facility] Blood specimen (specimen) 04/02/2020 1:40 AM EST 04/02/2020 1:45 AM EST Narrative Resulting Agency Comment Spec In Lab Anjelica Jordan RESPIRATORY MEDICINE PHYSICIAN HEMATOLOGY ORDER MAGAN Performing Organization Address [facility] de Phone Number [facility] [place] [address] * Phosphorus (04/02/2020 1:40 AM EST) Phosphorus 3.5 2.5 - 4.5 mg/dL [facility] Blood specimen (specimen) 04/02/2020 1:40 AM EST 04/02/2020 1:45 AM EST Narrative Resulting Agency Comment Spec In Lab Anjelica Jordan RESPIRATORY MEDICINE PHYSICIAN CHEMISTRY ORDERA BLES Performing Organization Address [facility] de Phone Number [facility] [place] [address] * Magnesium (04/02/2020 1:40 AM EST) Magnesium 0.69 0.69 - 1.07 mmol/L [facility] Blood specimen (specimen) 04/02/2020 1:40 AM EST 04/02/2020 1:45 AM EST Narrative Resulting Agency Comment Spec In Lab Anjelica Jordan RESPIRATORY MEDICINE PHYSICIAN CHEMISTRY ORDERA BLES Performing Organization Address [facility] de Phone Number [facility] [place] [address] * (ABNORMAL) Basic Metabolic Panel (non-fasting) (04/02/2020 1:40 AM EST) Glucose 115 65 - 199 mg/dL [facility] Comment:Diabetes: >=200 mg/d L plus symptoms Blood Urea Nitrogen 11 8 - 18 mg/dL [facility] Creatinine 0.57(L) 0.70 - 1.20 mg/dL [facility] Sodium 131(L) 135 - 145 mmol/L [facility] Potassium 4.3 3.5 - 5.0 mmol/L [facility] Comment: Please note: ??Patients with WBC >100,000 may have falsely elevated Potassium levels. ??For accurate Potassium quantification in these patients send serum separator tube (gold top) for subsequent determinations. ??Contact the Clinical Chemistry Laboratory if there are any questions. Chloride 94(L) 98 - 107 mmol/L [facility] Carbon Dioxide 24 22 - 31 mmol/L [facility] Anion Gap 13 5 - 15 mmol/L [facility] Calcium 8.2(L) 8.5 - 10.5 mg/dL [facility] Est Glomerular Filtration Rate 92 >=60 mL/min/1. 73 m?? [facility] Comment: This patient? s estimated [...] In Lab Anjelica Jordan APRN CHEMISTRY ORDERA DAYSIS [facility] [place] [address] * POCT Glucose (04/01/2020 7:48 PM EST) Glucose, POC 109 65 - 199 mg/dL [facility] Comment: Supplemental ranges: <140 mg/dL before meals <180 mg/dL all other times of the day Blood specimen (specimen) 04/01/2020 7:48 PM EST 04/01/2020 7:48 PM EST Davian Carolina MD POINT OF CARE TEST ORDERABLES Performing Organization Address City/State/[facility] Co de Phone Number [facility] [place] [address] * XR Abdomen 1 view (Generic) (04/01/2020 [...] Glucose Fasting 112(H) 65 - 99 mg/dL [facility] Comment: ?Fasting* Glucose Interpretive Criteria [...] of Diabetes Mellitus, Position Statement from the [place] [employer]. ??Diabetes Care, Volume 33, Supplement 1, Apr 2009 Blood Urea Nitrogen 9 8 - 18 mg/dL [facility] Creatinine 0.51(L) 0.70 - 1.20 mg/dL [facility] Sodium 128(L) 135 - 145 mmol/L [facility] Potassium 3.8 3.5 - 5.0 mmol/L [facility] Comment: Please note: ??Patients with WBC >100,000 may have falsely elevated Potassium levels. ??For accurate Potassium quantification in these patients send serum separator tube (gold top) for subsequent determinations. ??Contact the Clinical Chemistry Laboratory if there are any questions. Chloride 89(L) 98 - 107 mmol/L [facility] Carbon Dioxide 27 22 - 31 mmol/L [facility] Anion Gap 12 5 - 15 mmol/L [facility] Calcium 8.4(L) 8.5 - 10.5 mg/dL [facility] Est Glomerular Filtration Rate 95 >=60 mL/min/1. 73 m?? [facility] Comment: This patient? s estimated [...] Lab Davian Carolina MD CHEMISTRY ORDERABL ES [facility] [place] [address] * POCT Glucose (04/01/2020 3:31 PM EST) Glucose, POC 111 65 - 199 mg/dL [facility] Comment: Supplemental ranges: <140 mg/dL before meals <180 mg/dL all other times of the day Blood specimen (specimen) 04/01/2020 3:31 PM EST 04/01/2020 3:31 PM EST Davian Carolina MD POINT OF CARE TEST ORDERABLES [facility] [place] [address] * CT Abdomen & Pelvis w Contrast [...] contact the number below. ? Narrative 04/01/2020 4:09 PM EST EXAMINATION: CT [...] administration of contrast. Administered 66.0 ml of TYOEHXVKB400.00 mg/ml. Oral contrast was administered. COMPARISON: Postoperative [...] this report, please contact the number below. Anjelica Jordan APRN IMG CT ORDERABLE S * POCT Glucose (04/01/2020 11:20 AM EST) Glucose, POC 138 65 - 199 mg/dL [facility] Comment: Supplemental ranges: <140 mg/dL before meals <180 mg/dL all other times of the day Blood specimen (specimen) 04/01/2020 11:20 AM EST 04/01/2020 11:20 AM EST Davian Carolina MD POINT OF CARE TEST ORDERABLES Performing Organization Address [facility] de Phone Number [facility] [place] [address] * POCT Glucose (04/01/2020 7:30 AM EST) Glucose, POC 170 65 - 199 mg/dL [facility] Comment: Supplemental ranges: <140 mg/dL before meals <180 mg/dL all other times of the day Blood specimen (specimen) 04/01/2020 7:30 AM EST 04/01/2020 7:30 AM EST Davian Carolina MD POINT OF CARE TEST ORDERABLES Performing Organization Address [facility] Phone Number [facility] [place] [address] * POCT Glucose (04/01/2020 4:43 AM EST) Glucose, POC 152 65 - 199 mg/dL [facility] Comment: Supplemental ranges: <140 mg/dL before meals <180 mg/dL all other times of the day Blood specimen (specimen) 04/01/2020 4:43 AM EST 04/01/2020 4:43 AM EST Davian Carolina MD POINT OF CARE TEST ORDERABLES Performing Organization Address [facility] de Phone Number [facility] [place] [address] * (ABNORMAL) Differential, Automated (04/01/2020 4:20 AM EST) Neutrophil % 85.6 % [facility] Neutrophil Absolute 8.42(H) 1.70 - 6.10 x10(3)/mc L [facility] Lymph % 7.1 % [facility] Lymphocytes Abs 0.7(L) 0.9 - 3.2 x10(3)/mc L [facility] Monocyte % 5.2 % [facility] Monocyte Abs 0.5 0.3 - 0.9 x10(3)/[facility] Eos % 1.2 % [facility] Eosinophils Abs 0.1 0.0 - 0.4 x10(3)/[facility] Basophil % 0.4 % [facility] Baso Absolute 0.0 0.0 - 0.1 x10(3)/[facility] Immature Gran % 0.50 % [facility] Comment: Immature granulocytes(IG's)percentage and absolute count will include metamyelocytes, myelocytes, and promyelocytes. Blood smears from CBCs yielding IG's will be scanned manually for concordance. If this scan disagrees with the automated IG or if promyelocytes are noted, a manual differential will be performed. Immature Gran Absolute 0.05(H) 0.00 - 0.04 x10(3)/[facility] Blood specimen (specimen) 04/01/2020 4:20 AM EST 04/01/2020 4:30 AM EST Narrative Resulting Agency Comment Spec In Lab Edwardo Mccormack MD HEMATOLOGY ORDERABLE S [facility] [place] [address] * (ABNORMAL) Hemogram (04/01/2020 4:20 AM EST) White Blood Cell 9.8(H) 4.0 - 9.5 x10(3)/[facility] Red Blood Cell 3.72(L) 4.00 - 5.21 x10(6)/[facility] Hemoglobin 11.3(L) 11.7 - 15.5 gm/dL [facility] Hematocrit 32.9(L) 35.7 - 45.8 % [facility] Mean Cell Volume 88.4 82.6 - 94.4 fL [facility] Mean Cell Hemoglobin 30.4 27.1 - 32.0 pg [facility] Mean Cell Hemoglobin Concentration 34.3 31.7 - 35.0 gm/dL [facility] Platelet 320 145 - 357 x10(3)/mc L [facility] RDW Standard Deviation 39.5 37.0 - 46.0 fL [facility] RDW coefficient of variation 12.2 11.5 - 14.1 % [facility] Mean Platelet Volume 10.6 7.6 - 12.9 fL [facility] NRBC% auto 0.0 % [facility] NRBC Absolute 0.000 0.000 - 0.000 x10(3)/mc L [facility] Blood specimen (specimen) 04/01/2020 4:20 AM EST 04/01/2020 4:30 AM EST Narrative Resulting Agency Comment Spec In Lab Edwardo Mccormack MD HEMATOLOGY ORDERABLE S [facility] [place] [id number] * (ABNORMAL) Basic Metabolic Panel (non-fasting) (04/01/2020 4:20 AM EST) Glucose 141 65 - 199 mg/dL [facility] Comment:Diabetes: >=200 mg/d L plus symptoms Blood Urea Nitrogen 11 8 - 18 mg/dL [facility] Creatinine 0.48(L) 0.70 - 1.20 mg/dL [facility] Sodium 130(L) 135 - 145 mmol/L [facility] Potassium 3.5 3.5 - 5.0 mmol/L [facility] Comment: Please note: ??Patients with WBC >100,000 may have falsely elevated Potassium levels. ??For accurate Potassium quantification in these patients send serum separator tube (gold top) for subsequent determinations. ??Contact the Clinical Chemistry Laboratory if there are any questions. Chloride 91(L) 98 - 107 mmol/L [facility] Carbon Dioxide 31 22 - 31 mmol/L [facility] Anion Gap 8 5 - 15 mmol/L [facility] Calcium 8.3(L) 8.5 - 10.5 mg/dL [facility] Est Glomerular Filtration Rate 97 >=60 mL/min/1. 73 m?? [facility] Comment: This patient? s estimated [...] MD CHEMISTRY ORDERABL ES Performing Organization Address City/[facility]/ZIP Co de Phone Number [facility] [place] [address] * POCT Glucose (04/01/2020 12:06 AM EST) Glucose, POC 141 65 - 199 mg/dL [facility] Comment: Supplemental ranges: <140 mg/dL before meals <180 mg/dL all other times of the day Blood specimen (specimen) 04/01/2020 12:06 AM EST 04/01/2020 12:06 AM EST Davian Carolina MD POINT OF CARE TEST ORDERABLES [facility] [place] [address] * POCT Glucose (03/31/2020 8:52 PM EST) Glucose, POC 159 65 - 199 mg/dL [facility] Comment: Supplemental ranges: <140 mg/dL before meals <180 mg/dL all other times of the day Blood specimen (specimen) 03/31/2020 8:52 PM EST 03/31/2020 8:52 PM EST Davian Carolina MD POINT OF CARE TEST ORDERABLES [facility] [place] [address] * XR Abdomen Flat & Upright (03/31/2020 [...] * POCT Glucose (03/31/2020 4:52 PM EST) Glucose, POC 169 65 - 199 mg/dL [facility] Comment: Supplemental ranges: <140 mg/dL before meals <180 mg/dL all other times of the day Blood specimen (specimen) 03/31/2020 4:52 PM EST 03/31/2020 4:52 PM EST Davian Carolina MD POINT OF CARE TEST ORDERABLES Performing Organization Address [facility] de Phone Number [facility] [place] [address] * POCT Glucose (03/31/2020 12:03 PM EST) Glucose, POC 134 65 - 199 mg/dL [facility] Comment: Supplemental ranges: <140 mg/dL before meals <180 mg/dL all other times of the day Blood specimen (specimen) 03/31/2020 12:03 PM EST 03/31/2020 12:03 PM EST Davian Carolina MD POINT OF CARE TEST ORDERABLES Performing Organization Address [facility] Phone Number [facility] [place] [address] * POCT Glucose (03/31/2020 7:35 AM EST) Glucose, POC 128 65 - 199 mg/dL [facility] Comment: Supplemental ranges: <140 mg/dL before meals <180 mg/dL all other times of the day Blood specimen (specimen) 03/31/2020 7:35 AM EST 03/31/2020 7:35 AM EST Davian Carolina MD POINT OF CARE TEST ORDERABLES Performing Organization Address [facility] de Phone Number [facility] [place] [address] * (ABNORMAL) Differential, Automated (03/31/2020 6:36 AM EST) Neutrophil % 81.8 % [facility] Neutrophil Absolute 7.38(H) 1.70 - 6.10 x10(3)/mc L [facility] Lymph % 7.7 % [facility] Lymphocytes Abs 0.7(L) 0.9 - 3.2 x10(3)/mc L [facility] Monocyte % 6.9 % [facility] Monocyte Abs 0.6 0.3 - 0.9 x10(3)/[facility] Eos % 2.7 % [facility] Eosinophils Abs 0.2 0.0 - 0.4 x10(3)/[facility] Basophil % 0.3 % [facility] Baso Absolute 0.0 0.0 - 0.1 x10(3)/[facility] Immature Gran % 0.60 % [facility] Comment: Immature granulocytes(IG's)percentage and absolute count will include metamyelocytes, myelocytes, and promyelocytes. Blood smears from CBCs yielding IG's will be scanned manually for concordance. If this scan disagrees with the automated IG or if promyelocytes are noted, a manual differential will be performed. Immature Gran Absolute 0.05(H) 0.00 - 0.04 x10(3)/[facility] Blood specimen (specimen) 03/31/2020 6:36 AM EST 03/31/2020 6:55 AM EST Narrative Resulting Agency Comment Spec In Lab Anjelica Jordan APRN HEMATOLOGY ORDER MAGAN [facility] [place] [address] * (ABNORMAL) Hemogram (03/31/2020 6:36 AM EST) White Blood Cell 9.0 4.0 - 9.5 x10(3)/[facility] Red Blood Cell 3.76(L) 4.00 - 5.21 x10(6)/[facility] Hemoglobin 11.4(L) 11.7 - 15.5 gm/dL [facility] Hematocrit 33.7(L) 35.7 - 45.8 % [facility] Mean Cell Volume 89.6 82.6 - 94.4 fL [facility] Mean Cell Hemoglobin 30.3 27.1 - 32.0 pg [facility] Mean Cell Hemoglobin Concentration 33.8 31.7 - 35.0 gm/dL [facility] Platelet 252 145 - 357 x10(3)/mc L [facility] RDW Standard Deviation 41.2 37.0 - 46.0 fL [facility] RDW coefficient of variation 12.5 11.5 - 14.1 % [facility] Mean Platelet Volume 10.7 7.6 - 12.9 fL [facility] NRBC% auto 0.0 % [facility] NRBC Absolute 0.000 0.000 - 0.000 x10(3)/mc L [facility] Blood specimen (specimen) 03/31/2020 6:36 AM EST 03/31/2020 6:55 AM EST Narrative Resulting Agency Comment Spec In Lab Anjelica Jordan APRN HEMATOLOGY ORDER MAGAN [facility] [place] [id number] * (ABNORMAL) BMP w/fasting Glucose (03/31/2020 6:36 AM EST) Glucose Fasting 115(H) 65 - 99 mg/dL [facility] Comment: ?Fasting* Glucose Interpretive Criteria [...] of Diabetes Mellitus, Position Statement from the [place] [employer]. ??Diabetes Care, Volume 33, Supplement 1, Apr 2009 Blood Urea Nitrogen 16 8 - 18 mg/dL [facility] Creatinine 0.48(L) 0.70 - 1.20 mg/dL [facility] Sodium 133(L) 135 - 145 mmol/L [facility] Potassium 3.9 3.5 - 5.0 mmol/L [facility] Comment: Please note: ??Patients with WBC >100,000 may have falsely elevated Potassium levels. ??For accurate Potassium quantification in these patients send serum separator tube (gold top) for subsequent determinations. ??Contact the Clinical Chemistry Laboratory if there are any questions. Chloride 95(L) 98 - 107 mmol/L [facility] Carbon Dioxide 29 22 - 31 mmol/L [facility] Anion Gap 9 5 - 15 mmol/L [facility] Calcium 8.7 8.5 - 10.5 mg/dL [facility] Est Glomerular Filtration Rate 97 >=60 mL/min/1. 73 m?? [facility] Comment: This patient? s estimated [...] Lab Davian Carolina MD CHEMISTRY ORDERABL ES [facility] [place] [address] * Phosphorus (03/31/2020 6:36 AM EST) Phosphorus 3.7 2.5 - 4.5 mg/dL [facility] Blood specimen (specimen) 03/31/2020 6:36 AM EST 03/31/2020 6:55 AM EST Narrative Resulting Agency Comment Spec In Lab Anjelica Jordan RESPIRATORY MEDICINE PHYSICIAN CHEMISTRY ORDERA BLES Performing Organization Address [facility] de Phone Number [facility] [place] [address] * Magnesium (03/31/2020 6:36 AM EST) Magnesium 0.77 0.69 - 1.07 mmol/L [facility] LABORATORY Blood specimen (specimen) 03/31/2020 6:36 AM EST 03/31/2020 6:55 AM EST Narrative Resulting Agency Comment Spec In Lab Anjelica Jordan RESPIRATORY MEDICINE PHYSICIAN CHEMISTRY ORDERA BLES Performing Organization Address [facility] de Phone Number [facility] [place] [address] * POCT Glucose (03/30/2020 8:05 PM EST) Glucose, POC 136 65 - 199 mg/dL [facility] Comment: Supplemental ranges: <140 mg/dL before meals <180 mg/dL all other times of the day Blood specimen (specimen) 03/30/2020 8:05 PM EST 03/30/2020 8:05 PM EST Davian Carolina MD POINT OF CARE TEST ORDERABLES Performing Organization Address [facility] de Phone Number [facility] [place] [address] * POCT Glucose (03/30/2020 4:55 PM EST) Glucose, POC 129 65 - 199 mg/dL [facility] Comment: Supplemental ranges: <140 mg/dL before meals <180 mg/dL all other times of the day Blood specimen (specimen) 03/30/2020 4:55 PM EST 03/30/2020 4:55 PM EST Davian Carolina MD POINT OF CARE TEST ORDERABLES Performing Organization Address [facility] Co de Phone Number [facility] [place] [address] * C-peptide (03/30/2020 1:45 PM EST) C-Peptide 1.4 0.8 - 5.2 ng/mL [facility] Blood specimen (specimen) 03/30/2020 1:45 PM EST 03/30/2020 1:52 PM EST Narrative Resulting Agency Comment Spec In Lab Katie Santamaria APRN CHEMISTRY ORDERABLE S Performing Organization Address [facility] de Phone Number [facility] [place] [address] * POCT Glucose (03/30/2020 11:41 AM EST) Glucose, POC 156 65 - 199 mg/dL [facility] Comment: Supplemental ranges: <140 mg/dL before meals <180 mg/dL all other times of the day Blood specimen (specimen) 03/30/2020 11:41 AM EST 03/30/2020 11:41 AM EST Davian Carolina MD POINT OF CARE TEST ORDERABLES Performing Organization Address [facility] Co de Phone Number [facility] [place] [address] * POCT Glucose (03/30/2020 7:43 AM EST) Glucose, POC 160 65 - 199 mg/dL [facility] Comment: Supplemental ranges: <140 mg/dL before meals <180 mg/dL all other times of the day Blood specimen (specimen) 03/30/2020 7:43 AM EST 03/30/2020 7:43 AM EST Davian Carolina MD POINT OF CARE TEST ORDERABLES [facility] [place] [address] * (ABNORMAL) Hemoglobin A1c (03/30/2020 1:20 AM EST) Hemoglobin A1c 5.8(H) 4.3 - 5.6 % [facility] Comment: Reference Range: 4.3 - [...] Diabetes Care 2013; 36: Suppl. 1, S67-74 Estimated Average Glucose See note mg/dL [facility] Comment: Estimated Average Glucose not [...] into estimated average glucose values. ??Diabetes Care 2008:31(8):8904-6724. Blood specimen (specimen) Venous Draw / Unknown 03/30/2020 1:20 AM EST 03/30/2020 8:28 AM EST Narrative Resulting Agency Comment Spec In Lab Anjelica Jordan RESPIRATORY MEDICINE PHYSICIAN CHEMISTRY ORDERA BLES [facility] [place] [address] * (ABNORMAL) Differential, Automated (03/30/2020 1:20 AM EST) Neutrophil % 77.8 % [facility] Neutrophil Absolute 8.06(H) 1.70 - 6.10 x10(3)/mc L [facility] Lymph % 12.1 % [facility] Lymphocytes Abs 1.2 0.9 - 3.2 x10(3)/mc L [facility] Monocyte % 7.0 % [facility] Monocyte Abs 0.7 0.3 - 0.9 x10(3)/mc L [facility] Eos % 2.4 % [facility] Eosinophils Abs 0.2 0.0 - 0.4 x10(3)/mc L [facility] Basophil % 0.2 % [facility] Baso Absolute 0.0 0.0 - 0.1 x10(3)/mc L [facility] Immature Gran % 0.50 % [facility] Comment: Immature granulocytes(IG's)percentage and absolute count will include metamyelocytes, myelocytes, and promyelocytes. Blood smears from CBCs yielding IG's will be scanned manually for concordance. If this scan disagrees with the automated IG or if promyelocytes are noted, a manual differential will be performed. Immature Gran Absolute 0.05(H) 0.00 - 0.04 x10(3)/mc L [facility] Blood specimen (specimen) 03/30/2020 1:20 AM EST 03/30/2020 1:33 AM EST Narrative Resulting Agency Comment Spec In Lab Anjelica Jordan APRN HEMATOLOGY ORDER MAGAN Performing Organization Address City/[facility]/ZIP Co de Phone Number [facility] [place] [address] * (ABNORMAL) Hemogram (03/30/2020 1:20 AM EST) White Blood Cell 10.4(H) 4.0 - 9.5 x10(3)/mc L [facility] Red Blood Cell 3.91(L) 4.00 - 5.21 x10(6)/mc L [facility] Hemoglobin 12.0 11.7 - 15.5 gm/dL [facility] Hematocrit 34.9(L) 35.7 - 45.8 % [facility] Mean Cell Volume 89.3 82.6 - 94.4 fL [facility] Mean Cell Hemoglobin 30.7 27.1 - 32.0 pg [facility] Mean Cell Hemoglobin Concentration 34.4 31.7 - 35.0 gm/dL [facility] Platelet 231 145 - 357 x10(3)/mc L [facility] RDW Standard Deviation 40.1 37.0 - 46.0 fL [facility] RDW coefficient of variation 12.4 11.5 - 14.1 % [facility] Mean Platelet Volume 10.2 7.6 - 12.9 fL [facility] NRBC% auto 0.0 % [facility] NRBC Absolute 0.000 0.000 - 0.000 x10(3)/mc L [facility] Blood specimen (specimen) 03/30/2020 1:20 AM EST 03/30/2020 1:33 AM EST Narrative Resulting Agency Comment Spec In Lab Anjelica Jordan APRN HEMATOLOGY ORDER MAGAN Performing Organization Address City/[facility]/ZIP Co de Phone Number [facility] [place] [address] * (ABNORMAL) BMP w/fasting Glucose (03/30/2020 1:20 AM EST) Glucose Fasting 158(H) 65 - 99 mg/dL [facility] Comment: ?Fasting* Glucose Interpretive Criteria [...] of Diabetes Mellitus, Position Statement from the [place] [employer]. ??Diabetes Care, Volume 33, Supplement 1, Apr 2009 Blood Urea Nitrogen 15 8 - 18 mg/dL [facility] Creatinine 0.40(L) 0.70 - 1.20 mg/dL [facility] Sodium 135 135 - 145 mmol/L [facility] Potassium 3.7 3.5 - 5.0 mmol/L [facility] Comment: Please note: ??Patients with WBC >100,000 may have falsely elevated Potassium levels. ??For accurate Potassium quantification in these patients send serum separator tube (gold top) for subsequent determinations. ??Contact the Clinical Chemistry Laboratory if there are any questions. Chloride 98 98 - 107 mmol/L [facility] Carbon Dioxide 28 22 - 31 mmol/L [facility] Anion Gap 9 5 - 15 mmol/L [facility] Calcium 8.2(L) 8.5 - 10.5 mg/dL [facility] Est Glomerular Filtration Rate 103 >=60 mL/min/1. 73 m?? [facility] Comment: This patient? s estimated [...] ORDERABL ES Performing Organization Address [facility] Co de Phone Number [facility] [place] [address] * Phosphorus (03/30/2020 1:20 AM EST) Phosphorus 3.3 2.5 - 4.5 mg/dL [facility] Blood specimen (specimen) 03/30/2020 1:20 AM EST 03/30/2020 1:33 AM EST Narrative Resulting Agency Comment Spec In Lab Anjelica Jordan RESPIRATORY MEDICINE PHYSICIAN CHEMISTRY ORDERA BLES Performing Organization Address [facility] Co de Phone Number [facility] [place] [address] * Magnesium (03/30/2020 1:20 AM EST) Magnesium 0.83 0.69 - 1.07 mmol/L [facility] Blood specimen (specimen) 03/30/2020 1:20 AM EST 03/30/2020 1:33 AM EST Narrative Resulting Agency Comment Spec In Lab Anjelica Jordan RESPIRATORY MEDICINE PHYSICIAN CHEMISTRY ORDERA BLES Performing Organization Address [facility] Co de Phone Number [facility] [place] [address] * POCT Glucose (03/29/2020 8:57 PM EST) Glucose, POC 154 65 - 199 mg/dL [facility] Comment: Supplemental ranges: <140 mg/dL before meals <180 mg/dL all other times of the day Blood specimen (specimen) 03/29/2020 8:57 PM EST 03/29/2020 8:57 PM EST Davian Carolina MD POINT OF CARE TEST ORDERABLES [facility] [place] [address] * POCT Glucose (03/29/2020 4:13 PM EST) Glucose, POC 181 65 - 199 mg/dL [facility] Comment: Supplemental ranges: <140 mg/dL before meals <180 mg/dL all other times of the day Blood specimen (specimen) 03/29/2020 4:13 PM EST 03/29/2020 4:13 PM EST Davian Carolina MD POINT OF CARE TEST ORDERABLES Performing Organization Address City/[facility]/ZIP Co de Phone Number [facility] [place] [address] * POCT Glucose (03/29/2020 12:25 PM EST) Glucose, POC 196 65 - 199 mg/dL [facility] Comment: Supplemental ranges: <140 mg/dL before meals <180 mg/dL all other times of the day Blood specimen (specimen) 03/29/2020 12:25 PM EST 03/29/2020 12:25 PM EST Davian Carolina MD POINT OF CARE TEST ORDERABLES [facility] [place] [address] * POCT Glucose (03/29/2020 8:24 AM EST) Glucose, POC 171 65 - 199 mg/dL [facility] Comment: Supplemental ranges: <140 mg/dL before meals <180 mg/dL all other times of the day Blood specimen (specimen) 03/29/2020 8:24 AM EST 03/29/2020 8:24 AM EST Davian Carolina MD POINT OF CARE TEST ORDERABLES Performing Organization Address [facility] Phone Number [facility] [place] [address] * POCT Glucose (03/29/2020 4:22 AM EST) Glucose, POC 151 65 - 199 mg/dL [facility] Comment: Supplemental ranges: <140 mg/dL before meals <180 mg/dL all other times of the day Blood specimen (specimen) 03/29/2020 4:22 AM EST 03/29/2020 4:22 AM EST Davian Carolina MD POINT OF CARE TEST ORDERABLES Performing Organization Address [facility] de Phone Number [facility] [place] [address] * Phosphorus (03/29/2020 2:30 AM EST) Phosphorus 3.0 2.5 - 4.5 mg/dL [facility] Blood specimen (specimen) 03/29/2020 2:30 AM EST 03/29/2020 2:46 AM EST Narrative Resulting Agency Comment Spec In Lab Davian Carolina MD CHEMISTRY ORDERABL ES Performing Organization Address [facility] Phone Number [facility] [place] [address] * Magnesium (03/29/2020 2:30 AM EST) Magnesium 0.86 0.69 - 1.07 mmol/L [facility] Blood specimen (specimen) 03/29/2020 2:30 AM EST 03/29/2020 2:46 AM EST Narrative Resulting Agency Comment Spec In Lab Davian Carolina MD CHEMISTRY ORDERABL ES [facility] [place] [address] * (ABNORMAL) Basic Metabolic Panel (non-fasting) (03/29/2020 2:30 AM EST) Glucose 163 65 - 199 mg/dL [facility] Comment:Diabetes: >=200 mg/d L plus symptoms Blood Urea Nitrogen 18 8 - 18 mg/dL [facility] Creatinine 0.40(L) 0.70 - 1.20 mg/dL [facility] Sodium 139 135 - 145 mmol/L [facility] Potassium 3.6 3.5 - 5.0 mmol/L [facility] Comment: Please note: ??Patients with WBC >100,000 may have falsely elevated Potassium levels. ??For accurate Potassium quantification in these patients send serum separator tube (gold top) for subsequent determinations. ??Contact the Clinical Chemistry Laboratory if there are any questions. Chloride 104 98 - 107 mmol/L [facility] Carbon Dioxide 28 22 - 31 mmol/L [facility] Anion Gap 7 5 - 15 mmol/L [facility] Calcium 7.9(L) 8.5 - 10.5 mg/dL [facility] Est Glomerular Filtration Rate 103 >=60 mL/min/1. 73 m?? [facility] Comment: This patient? s estimated [...] Lab Davian Carolina MD CHEMISTRY ORDERABL ES [facility] [place] [address] * Differential, Automated (03/29/2020 1:20 AM EST) Neutrophil % 71.0 % [facility] Neutrophil Absolute 4.85 1.70 - 6.10 x10(3)/[facility] Lymph % 15.4 % [facility] Lymphocytes Abs 1.0 0.9 - 3.2 x10(3)/[facility] Monocyte % 10.1 % [facility] Monocyte Abs 0.7 0.3 - 0.9 x10(3)/[facility] Eos % 2.6 % [facility] Eosinophils Abs 0.2 0.0 - 0.4 x10(3)/[facility] Basophil % 0.3 % [facility] Baso Absolute 0.0 0.0 - 0.1 x10(3)/[facility] Immature Gran % 0.60 % [facility] Comment: Immature granulocytes(IG's)percentage and absolute count will include metamyelocytes, myelocytes, and promyelocytes. Blood smears from CBCs yielding IG's will be scanned manually for concordance. If this scan disagrees with the automated IG or if promyelocytes are noted, a manual differential will be performed. Immature Gran Absolute 0.04 0.00 - 0.04 x10(3)/[facility] Blood specimen (specimen) 03/29/2020 1:20 AM EST 03/29/2020 1:42 AM EST Narrative Resulting Agency Comment Spec In Lab Anjelica Jordan APRN HEMATOLOGY ORDER MAGAN [facility] [place] [address] * (ABNORMAL) Hemogram (03/29/2020 1:20 AM EST) [facility] White Blood Cell 6.8 4.0 - 9.5 x10(3)/[facility] LABORATORY Red Blood Cell 3.37(L) 4.00 - 5.21 x10(6)/[facility]ATORY Hemoglobin 11.3(L) 11.7 - 15.5 gm/dL [facility] Hematocrit 31.8(L) 35.7 - 45.8 % [facility] Mean Cell Volume 94.4 82.6 - 94.4 fL [facility] Mean Cell Hemoglobin 33.5(H) 27.1 - 32.0 pg [facility] Mean Cell Hemoglobin Concentration 35.5(H) 31.7 - 35.0 gm/dL [facility] Platelet 176 145 - 357 x10(3)/[facility] LABORATORY RDW Standard Deviation 43.8 37.0 - 46.0 [facility] LABORATORY RDW coefficient of variation 12.6 11.5 - 14.1 % [facility] Mean Platelet Volume 10.4 7.6 - 12.9 fL [facility] NRBC% auto 0.0 % [facility] NRBC Absolute 0.000 0.000 - 0.000 x10(3)/[facility]ORATORY Blood specimen (specimen) 03/29/2020 1:20 AM EST 03/29/2020 1:42 AM EST Narrative Resulting Agency Comment Spec In Lab Anjelica Jordan APRN HEMATOLOGY ORDER MAGAN [facility] [place] [address] * POCT Glucose (03/29/2020 12:05 AM EST) [facility] Glucose, POC 142 65 - 199 mg/dL [facility] Comment: Supplemental ranges: <140 mg/dL before meals <180 mg/dL all other times of the day Blood specimen (specimen) 03/29/2020 12:05 AM EST 03/29/2020 12:05 AM EST Davian Carolina MD POINT OF CARE TEST ORDERABLES Performing Organization Address City/[facility]/ZIP Co de Phone Number [facility] [place] [address] * POCT Glucose (03/28/2020 7:28 PM EST) Glucose, POC 174 65 - 199 mg/dL [facility] Comment: Supplemental ranges: <140 mg/dL before meals <180 mg/dL all other times of the day Blood specimen (specimen) 03/28/2020 7:28 PM EST 03/28/2020 7:28 PM EST Davian Carolina MD POINT OF CARE TEST ORDERABLES Performing Organization Address [facility] Co de Phone Number [facility] [place] [address] * POCT Glucose (03/28/2020 4:01 PM EST) Glucose, POC 190 65 - 199 mg/dL [facility] Comment: Supplemental ranges: <140 mg/dL before meals <180 mg/dL all other times of the day Blood specimen (specimen) 03/28/2020 4:01 PM EST 03/28/2020 4:01 PM EST Davian Carolina MD POINT OF CARE TEST ORDERABLES Performing Organization Address City/[facility]/ZIP Co de Phone Number [facility] [place] [address] * POCT Glucose (03/28/2020 11:34 AM EST) Glucose, POC 188 65 - 199 mg/dL [facility] Comment: Supplemental ranges: <140 mg/dL before meals <180 mg/dL all other times of the day Blood specimen (specimen) 03/28/2020 11:34 AM EST 03/28/2020 11:34 AM EST Davian Carolina MD POINT OF CARE TEST ORDERABLES Performing Organization Address [facility] Co de Phone Number [facility] [place] [address] * POCT Glucose (03/28/2020 7:30 AM EST) Glucose, POC 180 65 - 199 mg/dL [facility] Comment: Supplemental ranges: <140 mg/dL before meals <180 mg/dL all other times of the day Blood specimen (specimen) 03/28/2020 7:30 AM EST 03/28/2020 7:30 AM EST Davian Carolina MD POINT OF CARE TEST ORDERABLES Performing Organization Address [facility] Phone Number [facility] [place] [address] * Amylase Level Body Fluid KHRIS Drain (03/28/2020 4:00 AM EST) Amylase, Fluid 12 unit/L [facility] Comment: No reference range is available for the specimen type submitted. ??The performance of this assay for the submitted type has not been validated and results should be interpreted accordingly and with regard to the patient's clinical status. Amylase BF Type KHRIS Drain [facility] KHRIS Drain 03/28/2020 4:00 AM EST 03/28/2020 4:16 AM EST Narrative Resulting Agency Comment Spec In Lab Davian Carolina MD BODY FLUIDS AND ST OOLS ORDERABLES Performing Organization Address [facility] Co de Phone Number [facility] [place] [address] * (ABNORMAL) POCT Glucose (03/28/2020 3:57 AM EST) Glucose, POC 200(H) 65 - 199 mg/dL [facility] Comment: Supplemental ranges: <140 mg/dL before meals <180 mg/dL all other times of the day Blood specimen (specimen) 03/28/2020 3:57 AM EST 03/28/2020 3:57 AM EST Davian Carolina MD POINT OF CARE TEST ORDERABLES [facility] [place] [address] * Differential, Automated (03/28/2020 1:45 AM EST) Neutrophil % 69.0 % [facility] Neutrophil Absolute 4.74 1.70 - 6.10 x10(3)/[facility] LABOR[facility]ORY Lymph % 16.0 % [facility] Lymphocytes Abs 1.1 0.9 - 3.2 x10(3)/[facility]ORY Monocyte % 10.3 % [facility] Monocyte Abs 0.7 0.3 - 0.9 x10(3)/[facility]ORY Eos % 4.1 % [facility] Eosinophils Abs 0.3 0.0 - 0.4 x10(3)/[facility]ORY Basophil % 0.3 % [facility] Baso Absolute 0.0 0.0 - 0.1 x10(3)/[facility] Immature Gran % 0.30 % [facility] Comment: Immature granulocytes(IG's)percentage and absolute count will include metamyelocytes, myelocytes, and promyelocytes. Blood smears from CBCs yielding IG's will be scanned manually for concordance. If this scan disagrees with the automated IG or if promyelocytes are noted, a manual differential will be performed. Immature Gran Absolute 0.02 0.00 - 0.04 x10(3)/[facility] Blood specimen (specimen) 03/28/2020 1:45 AM EST 03/28/2020 1:52 AM EST Narrative Resulting Agency Comment Spec In Lab Anjelica Jordan APRN HEMATOLOGY ORDER MAGAN [facility] [place] [address] * (ABNORMAL) Hemogram (03/28/2020 1:45 AM EST) White Blood Cell 6.9 4.0 - 9.5 x10(3)/mc L [facility] Red Blood Cell 3.68(L) 4.00 - 5.21 x10(6)/mc L [facility] Hemoglobin 11.3(L) 11.7 - 15.5 gm/dL [facility] Hematocrit 33.4(L) 35.7 - 45.8 % [facility] Mean Cell Volume 90.8 82.6 - 94.4 fL [facility] Mean Cell Hemoglobin 30.7 27.1 - 32.0 pg [facility] Mean Cell Hemoglobin Concentration 33.8 31.7 - 35.0 gm/dL [facility] Platelet 205 145 - 357 x10(3)/mc L [facility] RDW Standard Deviation 40.5 37.0 - 46.0 fL [facility] RDW coefficient of variation 12.1 11.5 - 14.1 % [facility] Mean Platelet Volume 10.0 7.6 - 12.9 fL [facility] NRBC% auto 0.0 % [facility] NRBC Absolute 0.000 0.000 - 0.000 x10(3)/mc L [facility] Blood specimen (specimen) 03/28/2020 1:45 AM EST 03/28/2020 1:52 AM EST Narrative Resulting Agency Comment Spec In Lab Anjelica Jordan APRN HEMATOLOGY ORDER MAGAN [facility] [place] [address] * (ABNORMAL) BMP w/fasting Glucose (03/28/2020 1:45 AM EST) [facility] Glucose Fasting 165(H) 65 - 99 mg/dL [facility] Comment: ?Fasting* Glucose Interpretive Criteria [...] of Diabetes Mellitus, Position Statement from the [place] [employer]. ??Diabetes Care, Volume 33, Supplement 1, Apr 2009 Blood Urea Nitrogen 17 8 - 18 mg/dL [facility] Creatinine 0.46(L) 0.70 - 1.20 mg/dL [facility] Sodium 139 135 - 145 mmol/L [facility] Potassium 3.7 3.5 - 5.0 mmol/L [facility] Comment: Please note: ??Patients with WBC >100,000 may have falsely elevated Potassium levels. ??For accurate Potassium quantification in these patients send serum separator tube (gold top) for subsequent determinations. ??Contact the Clinical Chemistry Laboratory if there are any questions. Chloride 103 98 - 107 mmol/L [facility] Carbon Dioxide 27 22 - 31 mmol/L [facility] Anion Gap 9 5 - 15 mmol/L [facility] Calcium 8.4(L) 8.5 - 10.5 mg/dL [facility] Est Glomerular Filtration Rate 99 >=60 mL/min/1. 73 m?? [facility] Comment: This patient? s estimated [...] ORDERABL ES Performing Organization Address [facility] Co de Phone Number [facility] [place] [address] * Phosphorus (03/28/2020 1:45 AM EST) Phosphorus 2.9 2.5 - 4.5 mg/dL [facility] Blood specimen (specimen) 03/28/2020 1:45 AM EST 03/28/2020 1:52 AM EST Narrative Resulting Agency Comment Spec In Lab Anjelica Jordan APRN CHEMISTRY ORDERA BLES Performing Organization Address [facility] Co de Phone Number [facility] [place] [address] * Magnesium (03/28/2020 1:45 AM EST) Magnesium 0.87 0.69 - 1.07 mmol/L [facility] Blood specimen (specimen) 03/28/2020 1:45 AM EST 03/28/2020 1:52 AM EST Narrative Resulting Agency Comment Spec In Lab Anjelica Jordan RESPIRATORY MEDICINE PHYSICIAN CHEMISTRY ORDERA BLES Performing Organization Address [facility] Co de Phone Number [facility] [place] [address] * (ABNORMAL) Amylase (03/28/2020 1:45 AM EST) Amylase 18(L) 28 - 100 unit/L [facility] Blood specimen (specimen) 03/28/2020 1:45 AM EST 03/28/2020 1:52 AM EST Narrative Resulting Agency Comment Spec In Lab Anjelica Jordan APRN CHEMISTRY ORDERA BLES [facility] [place] [address] * POCT Glucose (03/28/2020 12:03 AM EST) Glucose, POC 157 65 - 199 mg/dL [facility] Comment: Supplemental ranges: <140 mg/dL before meals <180 mg/dL all other times of the day Blood specimen (specimen) 03/28/2020 12:03 AM EST 03/28/2020 12:03 AM EST Davian Carolina MD POINT OF CARE TEST ORDERABLES Performing Organization Address [facility]/ZIP Co de Phone Number [facility] [place] [address] * POCT Glucose (03/27/2020 8:06 PM EST) Glucose, POC 84 65 - 199 mg/dL [facility] Comment: Supplemental ranges: <140 mg/dL before meals <180 mg/dL all other times of the day Blood specimen (specimen) 03/27/2020 8:06 PM EST 03/27/2020 8:06 PM EST Davian Carolina MD POINT OF CARE TEST ORDERABLES Performing Organization Address City/[facility]/ZIP Co de Phone Number [facility] [place] [address] * POCT Glucose (03/27/2020 4:16 PM EST) Glucose, POC 190 65 - 199 mg/dL [facility] Comment: Supplemental ranges: <140 mg/dL before meals <180 mg/dL all other times of the day Blood specimen (specimen) 03/27/2020 4:16 PM EST 03/27/2020 4:16 PM EST Davian Carolina MD POINT OF CARE TEST ORDERABLES Performing Organization Address [facility] Co de Phone Number [facility] [place] [address] * POCT Glucose (03/27/2020 11:28 AM EST) Glucose, POC 92 65 - 199 mg/dL [facility] Comment: Supplemental ranges: <140 mg/dL before meals <180 mg/dL all other times of the day Blood specimen (specimen) 03/27/2020 11:28 AM EST 03/27/2020 11:28 AM EST Davian Carolina MD POINT OF CARE TEST ORDERABLES Performing Organization Address [facility] Co de Phone Number [facility] [place] [address] * POCT Glucose (03/27/2020 7:52 AM EST) Glucose, POC 71 65 - 199 mg/dL [facility] Comment: Supplemental ranges: <140 mg/dL before meals <180 mg/dL all other times of the day Blood specimen (specimen) 03/27/2020 7:52 AM EST 03/27/2020 7:52 AM EST Davian Carolina MD POINT OF CARE TEST ORDERABLES Performing Organization Address [facility] Co de Phone Number [facility] [place] [address] * POCT Glucose (03/27/2020 4:12 AM EST) Glucose, POC 74 65 - 199 mg/dL [facility] Comment: Supplemental ranges: <140 mg/dL before meals <180 mg/dL all other times of the day Blood specimen (specimen) 03/27/2020 4:12 AM EST 03/27/2020 4:12 AM EST Davian Carolina MD POINT OF CARE TEST ORDERABLES Performing Organization Address [facility] Co de Phone Number [facility] [place] [address] * Amylase Level Body Fluid KHRIS Drain (03/27/2020 3:28 AM EST) Amylase, Fluid 327 unit/L [facility] Comment: No reference range is available for the specimen type submitted. ??The performance of this assay for the submitted type has not been validated and results should be interpreted accordingly and with regard to the patient's clinical status. Amylase BF Type KHRIS Drain [facility] KHRIS Drain 03/27/2020 3:28 AM EST 03/27/2020 5:32 AM EST Narrative Resulting Agency Comment Spec In Lab Davian Carolina MD BODY FLUIDS AND ST OOLS ORDERABLES Performing Organization Address [facility] de Phone Number [facility] [place] [address] * Differential, Automated (03/27/2020 3:20 AM EST) Pathologist [facility] Neutrophil % 66.9 % [facility] Neutrophil Absolute 5.08 1.70 - 6.10 x10(3)/[facility] Lymph % 18.2 % [facility] Lymphocytes Abs 1.4 0.9 - 3.2 x10(3)/[facility] Monocyte % 9.5 % [facility] Monocyte Abs 0.7 0.3 - 0.9 x10(3)/[facility] Eos % 4.6 % [facility] Eosinophils Abs 0.4 0.0 - 0.4 x10(3)/[facility] Basophil % 0.5 % [facility] Baso Absolute 0.0 0.0 - 0.1 x10(3)/[facility] Immature Gran % 0.30 % [facility] Comment: Immature granulocytes(IG's)percentage and absolute count will include metamyelocytes, myelocytes, and promyelocytes. Blood smears from CBCs yielding IG's will be scanned manually for concordance. If this scan disagrees with the automated IG or if promyelocytes are noted, a manual differential will be performed. Immature Gran Absolute 0.02 0.00 - 0.04 x10(3)/mcL [facility] Blood specimen (specimen) 03/27/2020 3:20 AM EST 03/27/2020 3:35 AM EST Narrative Resulting Agency Comment Spec In Lab Anjelica Jordan APRN HEMATOLOGY ORDER MAGAN [facility] [place] [address] * (ABNORMAL) Hemogram (03/27/2020 3:20 AM EST) White Blood Cell 7.6 4.0 - 9.5 x10(3)/mc L [facility] Red Blood Cell 3.82(L) 4.00 - 5.21 x10(6)/mc L [facility] Hemoglobin 11.7 11.7 - 15.5 gm/dL [facility] Hematocrit 35.5(L) 35.7 - 45.8 % [facility] Mean Cell Volume 92.9 82.6 - 94.4 fL [facility] Mean Cell Hemoglobin 30.6 27.1 - 32.0 pg [facility] Mean Cell Hemoglobin Concentration 33.0 31.7 - 35.0 gm/dL [facility] Platelet 198 145 - 357 x10(3)/mc L [facility] RDW Standard Deviation 42.6 37.0 - 46.0 fL [facility] RDW coefficient of variation 12.5 11.5 - 14.1 % [facility] Mean Platelet Volume 10.1 7.6 - 12.9 fL [facility] NRBC% auto 0.0 % [facility] NRBC Absolute 0.000 0.000 - 0.000 x10(3)/mc L [facility] Blood specimen (specimen) 03/27/2020 3:20 AM EST 03/27/2020 3:35 AM EST Narrative Resulting Agency Comment Spec In Lab Anjelica Jordan RESPIRATORY MEDICINE PHYSICIAN HEMATOLOGY ORDER MAGAN Performing Organization Address City/[facility]/ZIP Co de Phone Number [facility] [place] [address] * Phosphorus (03/27/2020 3:20 AM EST) Phosphorus 3.1 2.5 - 4.5 mg/dL [facility] Blood specimen (specimen) 03/27/2020 3:20 AM EST 03/27/2020 3:35 AM EST Narrative Resulting Agency Comment Spec In Lab Anjelica Jordan RESPIRATORY MEDICINE PHYSICIAN CHEMISTRY ORDERA BLES Performing Organization Address [facility] Co de Phone Number [facility] [place] [address] * Magnesium (03/27/2020 3:20 AM EST) Magnesium 0.87 0.69 - 1.07 mmol/L [facility] Blood specimen (specimen) 03/27/2020 3:20 AM EST 03/27/2020 3:35 AM EST Narrative Resulting Agency Comment Spec In Lab Anjelica Jordan RESPIRATORY MEDICINE PHYSICIAN CHEMISTRY ORDERA BLES Performing Organization Address [facility] Co de Phone Number [facility] [place] [address] * (ABNORMAL) Comprehensive metabolic panel (non-fasting) (03/27/2020 3:20 AM EST) Glucose 73 65 - 199 mg/dL [facility] Comment:Diabetes: >=200 mg/d L plus symptoms Blood Urea Nitrogen 12 8 - 18 mg/dL [facility] Comment:result rechecked-bm Creatinine 0.49(L) 0.70 - 1.20 mg/dL [facility] Sodium 139 135 - 145 mmol/L [facility] Potassium 3.8 3.5 - 5.0 mmol/L [facility] Comment: Please note: ??Patients with WBC >100,000 may have falsely elevated Potassium levels. ??For accurate Potassium quantification in these patients send serum separator tube (gold top) for subsequent determinations. ??Contact the Clinical Chemistry Laboratory if there are any questions. Chloride 101 98 - 107 mmol/L [facility] Carbon Dioxide 27 22 - 31 mmol/L [facility] Anion Gap 11 5 - 15 mmol/L [facility] Calcium 8.5 8.5 - 10.5 mg/dL [facility] Protein, Total 5.4(L) 6.1 - 8.0 gm/dL [facility] Albumin 3.2 3.2 - 5.2 gm/dL [facility] Aspartate Aminotransferase 77(H) 0 - 30 unit/L [facility] Alanine Aminotransferase 160(H) 0 - 30 unit/L [facility] Alkaline Phosphatase 58 35 - 105 unit/L [facility] Bilirubin, Total 0.4 0.2 - 1.3 mg/dL [facility] Est Glomerular Filtration Rate 97 >=60 mL/min/1. 73 m?? [facility] Comment: This patient? s estimated [...] Agency Comment Spec In Lab Anjelica Jordan RESPIRATORY MEDICINE PHYSICIAN CHEMISTRY ORDERA BLES Performing Organization Address [facility] Co de Phone Number [facility] [place] [address] * (ABNORMAL) Amylase (03/27/2020 3:20 AM EST) Amylase 25(L) 28 - 100 unit/L [facility] Blood specimen (specimen) 03/27/2020 3:20 AM EST 03/27/2020 3:35 AM EST Narrative Resulting Agency Comment Spec In Lab Anjelica Jordan APRN CHEMISTRY ORDERA BLES Performing Organization Address [facility] Phone Number [facility] [place] [address] * POCT Glucose (03/27/2020 3:19 AM EST) Glucose, POC 73 65 - 199 mg/dL [facility] Comment: Supplemental ranges: <140 mg/dL before meals <180 mg/dL all other times of the day Blood specimen (specimen) 03/27/2020 3:19 AM EST 03/27/2020 3:19 AM EST Davian Carolina MD POINT OF CARE TEST ORDERABLES Performing Organization Address [facility] Co de Phone Number [facility] [place] [address] * POCT Glucose (03/27/2020 12:03 AM EST) Glucose, POC 93 65 - 199 mg/dL [facility] Comment: Supplemental ranges: <140 mg/dL before meals <180 mg/dL all other times of the day Blood specimen (specimen) 03/27/2020 12:03 AM EST 03/27/2020 12:03 AM EST Davian Carolina MD POINT OF CARE TEST ORDERABLES Performing Organization Address [facility] Co de Phone Number [facility] [place] [address] * POCT Glucose (03/26/2020 9:10 PM EST) Glucose, POC 96 65 - 199 mg/dL [facility] Comment: Supplemental ranges: <140 mg/dL before meals <180 mg/dL all other times of the day Blood specimen (specimen) 03/26/2020 9:10 PM EST 03/26/2020 9:10 PM EST Davian Carolina MD POINT OF CARE TEST ORDERABLES Performing Organization Address [facility] Co de Phone Number [facility] [place] [address] * POCT Glucose (03/26/2020 7:52 PM EST) Glucose, POC 74 65 - 199 mg/dL [facility] Comment: Supplemental ranges: <140 mg/dL before meals <180 mg/dL all other times of the day Blood specimen (specimen) 03/26/2020 7:52 PM EST 03/26/2020 7:52 PM EST Davian Carolina MD POINT OF CARE TEST ORDERABLES Performing Organization Address [facility] Co de Phone Number [facility] [place] [address] * POCT Glucose (03/26/2020 3:59 PM EST) Glucose, POC 87 65 - 199 mg/dL [facility] Comment: Supplemental ranges: <140 mg/dL before meals <180 mg/dL all other times of the day Blood specimen (specimen) 03/26/2020 3:59 PM EST 03/26/2020 3:59 PM EST Davian Carolina MD POINT OF CARE TEST ORDERABLES Performing Organization Address [facility] Co de Phone Number [facility] [place] [address] * POCT Glucose (03/26/2020 11:39 AM EST) Glucose, POC 87 65 - 199 mg/dL [facility] Comment: Supplemental ranges: <140 mg/dL before meals <180 mg/dL all other times of the day Blood specimen (specimen) 03/26/2020 11:39 AM EST 03/26/2020 11:39 AM EST Davian Carolina MD POINT OF CARE TEST ORDERABLES Performing Organization Address [facility] Co de Phone Number [facility] [place] [address] * CT Angiogram Abdomen w Contrast (03/26/2020 [...] please contact the number below. ? Narrative 03/26/2020 11:23 AM EST EXAMINATION: CT [...] the number below. Davian Carolina MD IMG CT ORDERABLES * POCT Glucose (03/26/2020 7:32 AM EST) Glucose, POC 109 65 - 199 mg/dL [facility] Comment: Supplemental ranges: <140 mg/dL before meals <180 mg/dL all other times of the day Blood specimen (specimen) 03/26/2020 7:32 AM EST 03/26/2020 7:32 AM EST Davian Carolina MD POINT OF CARE TEST ORDERABLES [facility] [place] [address] * POCT Glucose (03/26/2020 3:16 AM EST) Glucose, POC 134 65 - 199 mg/dL [facility] Comment: Supplemental ranges: <140 mg/dL before meals <180 mg/dL all other times of the day Blood specimen (specimen) 03/26/2020 3:16 AM EST 03/26/2020 3:16 AM EST Davian Carolina MD POINT OF CARE TEST ORDERABLES [facility] [place] [address] * (ABNORMAL) Differential, Automated (03/26/2020 1:45 AM EST) [facility] Neutrophil % 79.2 % [facility] Neutrophil Absolute 7.42(H) 1.70 - 6.10 x10(3)/mc L [facility] Lymph % 11.3 % [facility] Lymphocytes Abs 1.1 0.9 - 3.2 x10(3)/mc L [facility] Monocyte % 8.3 % [facility] Monocyte Abs 0.8 0.3 - 0.9 x10(3)/mc L [facility] Eos % 0.6 % [facility] Eosinophils Abs 0.1 0.0 - 0.4 x10(3)/mc L [facility] Basophil % 0.3 % [facility] Baso Absolute 0.0 0.0 - 0.1 x10(3)/mc L [facility] Immature Gran % 0.30 % [facility] Comment: Immature granulocytes(IG's)percentage and absolute count will include metamyelocytes, myelocytes, and promyelocytes. Blood smears from CBCs yielding IG's will be scanned manually for concordance. If this scan disagrees with the automated IG or if promyelocytes are noted, a manual differential will be performed. Immature Gran Absolute 0.03 0.00 - 0.04 x10(3)/mc L [facility] Blood specimen (specimen) 03/26/2020 1:45 AM EST 03/26/2020 1:56 AM EST Narrative Resulting Agency Comment Spec In Lab Anjelica Jordan JESUS ALBERTO HEMATOLOGY ORDER MAGAN [facility] [place] [address] * (ABNORMAL) Hemogram (03/26/2020 1:45 AM EST) White Blood Cell 9.4 4.0 - 9.5 x10(3)/[facility] Red Blood Cell 3.74(L) 4.00 - 5.21 x10(6)/[facility] Hemoglobin 11.4(L) 11.7 - 15.5 gm/dL [facility] Hematocrit 34.3(L) 35.7 - 45.8 % [facility] Mean Cell Volume 91.7 82.6 - 94.4 [facility] Mean Cell Hemoglobin 30.5 27.1 - 32.0 pg [facility] Mean Cell Hemoglobin Concentration 33.2 31.7 - 35.0 gm/dL [facility] Platelet 168 145 - 357 x10(3)/[facility] RDW Standard Deviation 42.4 37.0 - 46.0 [facility] RDW coefficient of variation 12.6 11.5 - 14.1 % [facility] Mean Platelet Volume 10.2 7.6 - 12.9 [facility] NRBC% auto 0.0 % [facility] NRBC Absolute 0.000 0.000 - 0.000 x10(3)/ L [facility] Blood specimen (specimen) 03/26/2020 1:45 AM EST 03/26/2020 1:56 AM EST Narrative Resulting Agency Comment Spec In Lab Anjelica Jordan APRN HEMATOLOGY ORDER MAGAN Performing Organization Address [facility]/ZIP Co de Phone Number [facility] [place] [address] * (ABNORMAL) Phosphorus (03/26/2020 1:45 AM EST) Phosphorus 2.3(L) 2.5 - 4.5 mg/dL [facility] Blood specimen (specimen) 03/26/2020 1:45 AM EST 03/26/2020 1:56 AM EST Narrative Resulting Agency Comment Spec In Lab Anjelica Jordan APRN CHEMISTRY ORDERA BLES Performing Organization Address [facility] Co de Phone Number [facility] [place] [address] * Magnesium (03/26/2020 1:45 AM EST) Magnesium 0.82 0.69 - 1.07 mmol/L [facility] Blood specimen (specimen) 03/26/2020 1:45 AM EST 03/26/2020 1:56 AM EST Narrative Resulting Agency Comment Spec In Lab Anjelica Jordan APRN CHEMISTRY ORDERA BLES Performing Organization Address [facility] Co de Phone Number [facility] [place] [address] * (ABNORMAL) Comprehensive metabolic panel (non-fasting) (03/26/2020 1:45 AM EST) Glucose 131 65 - 199 mg/dL [facility] Comment:Diabetes: >=200 mg/d L plus symptoms Blood Urea Nitrogen 6(L) 8 - 18 mg/dL [facility] Creatinine 0.54(L) 0.70 - 1.20 mg/dL [facility] Sodium 139 135 - 145 mmol/L [facility] Potassium 3.4(L) 3.5 - 5.0 mmol/L [facility] Comment: Please note: ??Patients with WBC >100,000 may have falsely elevated Potassium levels. ??For accurate Potassium quantification in these patients send serum separator tube (gold top) for subsequent determinations. ??Contact the Clinical Chemistry Laboratory if there are any questions. Chloride 98 98 - 107 mmol/L [facility] Carbon Dioxide 29 22 - 31 mmol/L [facility] Anion Gap 12 5 - 15 mmol/L [facility] Calcium 8.6 8.5 - 10.5 mg/dL [facility] Protein, Total 5.5(L) 6.1 - 8.0 gm/dL [facility] Albumin 3.3 3.2 - 5.2 gm/dL [facility] Aspartate Aminotransferase 166(H) 0 - 30 unit/L [facility] Alanine Aminotransferase 240(H) 0 - 30 unit/L [facility] Alkaline Phosphatase 60 35 - 105 unit/L [facility] Bilirubin, Total 0.6 0.2 - 1.3 mg/dL [facility] Est Glomerular Filtration Rate 94 >=60 mL/min/1. 73 m?? [facility] Comment: This patient? s estimated [...] Lab Anjelica Jordan APRN CHEMISTRY ORDERA BLES [facility] [place] [address] * (ABNORMAL) Amylase (03/26/2020 1:45 AM EST) Amylase 22(L) 28 - 100 unit/L [facility] Blood specimen (specimen) 03/26/2020 1:45 AM EST 03/26/2020 1:56 AM EST Narrative Resulting Agency Comment Spec In Lab Anjelica Jordan APRN CHEMISTRY ORDERA BLES Performing Organization Address City/[facility] Co de Phone Number [facility] [place] [address] * Amylase Level Body Fluid KHRIS Drain (03/26/2020 1:36 AM EST) Amylase, Fluid 15 unit/L [facility] Comment: No reference range is available for the specimen type submitted. ??The performance of this assay for the submitted type has not been validated and results should be interpreted accordingly and with regard to the patient's clinical status. Amylase BF Type KHRIS Drain [facility] KHRIS Drain 03/26/2020 1:36 AM EST 03/26/2020 1:58 AM EST Narrative Resulting Agency Comment Spec In Lab Davian Carolina MD BODY FLUIDS AND ST OOLS ORDERABLES Performing Organization Address [facility] Co de Phone Number [facility] [place] [address] * POCT Glucose (03/25/2020 11:11 PM EST) Glucose, POC 128 65 - 199 mg/dL [facility] Comment: Supplemental ranges: <140 mg/dL before meals <180 mg/dL all other times of the day Blood specimen (specimen) 03/25/2020 11:11 PM EST 03/25/2020 11:11 PM EST Davian Carolina MD POINT OF CARE TEST ORDERABLES Performing Organization Address City/[facility]/ZIP Co de Phone Number [facility] [place] [address] * POCT Glucose (03/25/2020 7:53 PM EST) Glucose, POC 142 65 - 199 mg/dL [facility] Comment: Supplemental ranges: <140 mg/dL before meals <180 mg/dL all other times of the day Blood specimen (specimen) 03/25/2020 7:53 PM EST 03/25/2020 7:53 PM EST Davian Carolina MD POINT OF CARE TEST ORDERABLES Performing Organization Address City/[facility]/ZIP Co de Phone Number [facility] [place] [address] * POCT Glucose (03/25/2020 4:23 PM EST) Glucose, POC 149 65 - 199 mg/dL [facility] Comment: Supplemental ranges: <140 mg/dL before meals <180 mg/dL all other times of the day Blood specimen (specimen) 03/25/2020 4:23 PM EST 03/25/2020 4:23 PM EST Davian Carolina MD POINT OF CARE TEST ORDERABLES [facility] [place] [address] * POCT Glucose (03/25/2020 12:36 PM EST) Glucose, POC 132 65 - 199 mg/dL [facility] Comment: Supplemental ranges: <140 mg/dL before meals <180 mg/dL all other times of the day Blood specimen (specimen) 03/25/2020 12:36 PM EST 03/25/2020 12:36 PM EST Davian Carolina MD POINT OF CARE TEST ORDERABLES [facility] [place] [address] * (ABNORMAL) Urinalysis Microscopic Exam (03/25/2020 10:21 AM EST) RBC, Urine 5(H) 0 - 4 /HPF [facility] WBC, Urine 3 0 - 5 /HPF [facility] Squamous Epithelial Cells Raw Data, Urine 1 <=4 /HPF [facility] Hyaline Casts, Urine 8(H) 0 - 2 /LPF [facility] Urine specimen obtained via indwelling urinary catheter (specimen) 03/25/2020 10:21 AM EST 03/25/2020 11:31 AM EST Narrative Resulting Agency Comment Spec In Lab Anjelica Jordan APRN URINE ORDERABLES [facility] [place] [address] * (ABNORMAL) Urinalysis with reflex Culture (03/25/2020 10:21 AM EST) Glucose, Urine Dipstick Negative Negative mg/dL [facility] Protein, Urine Dipstick Negative Negative mg/dL [facility] LABORATORY Bilirubin, Urine Dipstick Negative Negative mg/dL [facility] Comment: Clinical correlation required for positive Urine Bilirubin results as false positive may occur with some drugs and drug related products. If a false positive is suspected a serum total bilirubin should be considered if clinically indicated. Urobilinogen, Urine Dipstick Normal Normal mg/dL [facility] pH, Urn (dipstick) 5.5 5.0 - 8.0 [facility] Blood, Urine Dipstick Negative Negative mg/dL [facility] Ketone, Urine Dipstick >=80(Critica l) Negative mg/dL [facility] Comment: Urinalysis result NOT critical without a combination of Glucose greater than or equal to 500 mg/dL AND Ketones greater than or equal to 80 mg/dL Nitrite, Urine Dipstick Negative Negative [facility] Leukocytes, Urine Dipstick Trace(A) Negative [facility] LAB[facility]ORY Appearance, Urine Dipstick Clear Clear [facility] Specific [place] Urine Automated 1.016 1.006 - 1.030 [facility] Color, Urine Dipstick Yellow Yellow [facility] Reflex to Culture No [facility] Urine specimen obtained via indwelling urinary catheter (specimen) 03/25/2020 10:21 AM EST 03/25/2020 11:31 AM EST Narrative Resulting Agency Comment Spec In Lab Anjelica Jordan APRN URINE ORDERABLES [facility] [place] [address] * POCT Glucose (03/25/2020 7:50 AM EST) Glucose, POC 114 65 - 199 mg/dL [facility] Comment: Supplemental ranges: <140 mg/dL before meals <180 mg/dL all other times of the day Blood specimen (specimen) 03/25/2020 7:50 AM EST 03/25/2020 7:50 AM EST Davian Carolina MD POINT OF CARE TEST ORDERABLES Performing Organization Address City/[facility]/ZIP Co de Phone Number [facility] [place] [address] * POCT Glucose (03/25/2020 4:06 AM EST) Glucose, POC 108 65 - 199 mg/dL [facility] Comment: Supplemental ranges: <140 mg/dL before meals <180 mg/dL all other times of the day Blood specimen (specimen) 03/25/2020 4:06 AM EST 03/25/2020 4:06 AM EST Davian Carolina MD POINT OF CARE TEST ORDERABLES [facility] [place] [address] * Amylase Level Body Fluid KHRIS Drain (03/25/2020 3:53 AM EST) Amylase, Fluid 22 unit/L [facility] Comment: No reference range is available for the specimen type submitted. ??The performance of this assay for the submitted type has not been validated and results should be interpreted accordingly and with regard to the patient's clinical status. Amylase BF Type KHRIS Drain [facility] KHRIS Drain 03/25/2020 3:53 AM EST 03/25/2020 4:14 AM EST Narrative Resulting Agency Comment Spec In Lab Davian Carolina MD BODY FLUIDS AND ST OOLS ORDERABLES [facility] [place] [address] * (ABNORMAL) Differential, Automated (03/25/2020 1:55 AM EST) Neutrophil % 82.1 % [facility] Neutrophil Absolute 11.43(H) 1.70 - 6.10 x10(3)/mc L [facility] Lymph % 10.1 % [facility] Lymphocytes Abs 1.4 0.9 - 3.2 x10(3)/mc L [facility] Monocyte % 6.9 % [facility] Monocyte Abs 1.0(H) 0.3 - 0.9 x10(3)/mc L [facility] Eos % 0.3 % [facility] Eosinophils Abs 0.0 0.0 - 0.4 x10(3)/mc L [facility] Basophil % 0.2 % [facility] Baso Absolute 0.0 0.0 - 0.1 x10(3)/mc L [facility] Immature Gran % 0.40 % [facility] Comment: Immature granulocytes(IG's)percentage and absolute count will include metamyelocytes, myelocytes, and promyelocytes. Blood smears from CBCs yielding IG's will be scanned manually for concordance. If this scan disagrees with the automated IG or if promyelocytes are noted, a manual differential will be performed. Immature Gran Absolute 0.06(H) 0.00 - 0.04 x10(3)/ L [facility] Blood specimen (specimen) 03/25/2020 1:55 AM EST 03/25/2020 2:04 AM EST Narrative Resulting Agency Comment Spec In Lab Anjelica Jordan APRN HEMATOLOGY ORDER MAGAN [facility] [place] [address] * (ABNORMAL) Hemogram (03/25/2020 1:55 AM EST) White Blood Cell 13.9(H) 4.0 - 9.5 x10(3)/ L [facility] Red Blood Cell 3.65(L) 4.00 - 5.21 x10(6)/[facility]ORY Hemoglobin 11.2(L) 11.7 - 15.5 gm/dL [facility] Hematocrit 33.5(L) 35.7 - 45.8 % [facility] Mean Cell Volume 91.8 82.6 - 94.4 fL [facility] Mean Cell Hemoglobin 30.7 27.1 - 32.0 pg [facility] Mean Cell Hemoglobin Concentration 33.4 31.7 - 35.0 gm/dL [facility] Platelet 203 145 - 357 x10(3)/ L [facility] RDW Standard Deviation 42.5 37.0 - 46.0 [facility] RDW coefficient of variation 12.7 11.5 - 14.1 % [facility] Mean Platelet Volume 9.9 7.6 - 12.9 fL [facility] NRBC% auto 0.0 % [facility] NRBC Absolute 0.000 0.000 - 0.000 x10(3)/ L [facility] Blood specimen (specimen) 03/25/2020 1:55 AM EST 03/25/2020 2:04 AM EST Narrative Resulting Agency Comment Spec In Lab Anjelica Jordan APRN HEMATOLOGY ORDER MAGAN Performing Organization Address [facility] Co de Phone Number [facility] [place] [address] * (ABNORMAL) Phosphorus (03/25/2020 1:55 AM EST) Phosphorus 1.6(L) 2.5 - 4.5 mg/dL [facility] Blood specimen (specimen) 03/25/2020 1:55 AM EST 03/25/2020 2:04 AM EST Narrative Resulting Agency Comment Spec In Lab Anjelica Jordan APRN CHEMISTRY ORDERA BLES Performing Organization Address [facility] de Phone Number [facility] [place] [address] * Magnesium (03/25/2020 1:55 AM EST) Magnesium 0.78 0.69 - 1.07 mmol/L [facility] Blood specimen (specimen) 03/25/2020 1:55 AM EST 03/25/2020 2:04 AM EST Narrative Resulting Agency Comment Spec In Lab Anjelica Jordan APRN CHEMISTRY ORDERA BLES Performing Organization Address [facility] de Phone Number [facility] [place] [address] * (ABNORMAL) Comprehensive metabolic panel (non-fasting) (03/25/2020 1:55 AM EST) Glucose 116 65 - 199 mg/dL [facility] Comment:Diabetes: >=200 mg/d L plus symptoms Blood Urea Nitrogen 10 8 - 18 mg/dL [facility] Creatinine 0.48(L) 0.70 - 1.20 mg/dL [facility] Sodium 138 135 - 145 mmol/L [facility] Potassium 3.9 3.5 - 5.0 mmol/L [facility] Comment: Please note: ??Patients with WBC >100,000 may have falsely elevated Potassium levels. ??For accurate Potassium quantification in these patients send serum separator tube (gold top) for subsequent determinations. ??Contact the Clinical Chemistry Laboratory if there are any questions. Chloride 101 98 - 107 mmol/L [facility] Carbon Dioxide 29 22 - 31 mmol/L [facility] Anion Gap 8 5 - 15 mmol/L [facility] Calcium 8.2(L) 8.5 - 10.5 mg/dL [facility] Protein, Total 5.2(L) 6.1 - 8.0 gm/dL [facility] Albumin 3.1(L) 3.2 - 5.2 gm/dL [facility] Aspartate Aminotransferase 149(H) 0 - 30 unit/L [facility] Alanine Aminotransferase 170(H) 0 - 30 unit/L [facility] Alkaline Phosphatase 58 35 - 105 unit/L [facility] Bilirubin, Total 0.6 0.2 - 1.3 mg/dL [facility] Est Glomerular Filtration Rate 97 >=60 mL/min/1. 73 m?? [facility] Comment: This patient? s estimated [...] Agency Comment Spec In Lab Anjelica Jordan RESPIRATORY MEDICINE PHYSICIAN CHEMISTRY ORDERA BLES Performing Organization Address City/[facility]/ZIP Co de Phone Number [facility] [place] [address] * Amylase (03/25/2020 1:55 AM EST) Amylase 31 28 - 100 unit/L [facility] Blood specimen (specimen) 03/25/2020 1:55 AM EST 03/25/2020 2:04 AM EST Narrative Resulting Agency Comment Spec In Lab Anjelica Lissa Nikki RESPIRATORY MEDICINE PHYSICIAN CHEMISTRY ORDERA BLES Performing Organization Address [facility] Co de Phone Number [facility] [place] [address] * POCT Glucose (03/24/2020 11:38 PM EST) Glucose, POC 117 65 - 199 mg/dL [facility] Comment: Supplemental ranges: <140 mg/dL before meals <180 mg/dL all other times of the day Blood specimen (specimen) 03/24/2020 11:38 PM EST 03/24/2020 11:38 PM EST Davian Carolina MD POINT OF CARE TEST ORDERABLES Performing Organization Address [facility] Co de Phone Number [facility] [place] [address] * POCT Glucose (03/24/2020 8:17 PM EST) Glucose, POC 109 65 - 199 mg/dL [facility] Comment: Supplemental ranges: <140 mg/dL before meals <180 mg/dL all other times of the day Blood specimen (specimen) 03/24/2020 8:17 PM EST 03/24/2020 8:17 PM EST Davian Carolina MD POINT OF CARE TEST ORDERABLES Performing Organization Address City/[facility]/ZIP Co de Phone Number [facility] [place] [address] * Potassium (03/24/2020 5:40 PM EST) Pathologist [facility] [place] Potassium 4.1 3.5 - 5.0 mmol/L [facility] [...] ORDERA BLES Performing Organization Address [facility] Co de Phone Number [facility] [place] [address] * (ABNORMAL) Aspartate Aminotransferase (03/24/2020 5:40 PM EST) [facility] Aspartate Aminotransferase 137(H) 0 - 30 unit/L [facility] Blood specimen (specimen) 03/24/2020 5:40 PM EST 03/24/2020 6:02 PM EST Narrative Resulting Agency Comment Spec In Lab Anjelica Jordan APRN CHEMISTRY ORDERA BLES Performing Organization Address [facility] Co de Phone Number [facility] [place] [address] * POCT Glucose (03/24/2020 5:13 PM EST) Glucose, POC 112 65 - 199 mg/dL [facility] Comment: Supplemental ranges: <140 mg/dL before meals <180 mg/dL all other times of the day Blood specimen (specimen) 03/24/2020 5:13 PM EST 03/24/2020 5:13 PM EST Davian Carolina MD POINT OF CARE TEST ORDERABLES Performing Organization Address [facility]/ZIP [place] [address] * Place PICC Line: Contact Vascular Access Page [phone] Extremity to exclude: DO NOT use RIGHT [...] to the planned procedure. Hand Hygiene: The logistics loss prevention manager did perform hand hygiene prior to line insertion. Catheter type: PICC Lot number: [id number] Procedure Technique: Skin was prepped with chlorhexidine. [...] please contact the number below. ? Narrative 03/24/2020 4:54 PM EST EXAMINATION: XR [...] the number below. Davian Carolina MD IMG FLUORO ORDERAB LES * POCT Glucose (03/24/2020 1:05 PM EST) Glucose, POC 113 65 - 199 mg/dL [facility] Comment: Supplemental ranges: <140 mg/dL before meals <180 mg/dL all other times of the day Blood specimen (specimen) 03/24/2020 1:05 PM EST 03/24/2020 1:05 PM EST Davian Carolina MD POINT OF CARE TEST ORDERABLES Performing Organization Address City/[facility]/ZIP Co de Phone Number [facility] [place] [address] * POCT Glucose (03/24/2020 9:28 AM EST) Glucose, POC 155 65 - 199 mg/dL [facility] Comment: Supplemental ranges: <140 mg/dL before meals <180 mg/dL all other times of the day Blood specimen (specimen) 03/24/2020 9:28 AM EST 03/24/2020 9:28 AM EST Davian Carolina MD POINT OF CARE TEST ORDERABLES [facility] [place] [address] * (ABNORMAL) Differential, Automated (03/24/2020 8:28 AM EST) Neutrophil % 84.9 % [facility] Neutrophil Absolute 13.84(H) 1.70 - 6.10 x10(3)/[facility] Lymph % 6.7 % [facility] Lymphocytes Abs 1.1 0.9 - 3.2 x10(3)/[facility] Monocyte % 7.9 % [facility] Monocyte Abs 1.3(H) 0.3 - 0.9 x10(3)/[facility] Eos % 0.0 % [facility] Eosinophils Abs 0.0 0.0 - 0.4 x10(3)/[facility] Basophil % 0.1 % [facility] Baso Absolute 0.0 0.0 - 0.1 x10(3)/[facility] Immature Gran % 0.40 % [facility] Comment: Immature granulocytes(IG's)percentage and absolute count will include metamyelocytes, myelocytes, and promyelocytes. Blood smears from CBCs yielding IG's will be scanned manually for concordance. If this scan disagrees with the automated IG or if promyelocytes are noted, a manual differential will be performed. Immature Gran Absolute 0.07(H) 0.00 - 0.04 x10(3)/[facility] Blood specimen (specimen) 03/24/2020 8:28 AM EST 03/24/2020 8:55 AM EST Narrative Resulting Agency Comment Spec In Lab Anjelica Jordan APRN HEMATOLOGY ORDER MAGAN [facility] [place] [address] * (ABNORMAL) Hemogram (03/24/2020 8:28 AM EST) Pathologist [facility] [place] White Blood Cell 16.3(H) 4.0 - 9.5 x10(3)/ L [facility] Red Blood Cell 3.90(L) 4.00 - 5.21 x10(6)/ L [facility] Hemoglobin 11.7 11.7 - 15.5 gm/dL [facility] Hematocrit 37.0 35.7 - 45.8 % [facility] Mean Cell Volume 94.9(H) 82.6 - 94.4 fL [facility] Mean Cell Hemoglobin 30.0 27.1 - 32.0 pg [facility] Mean Cell Hemoglobin Concentration 31.6(L) 31.7 - 35.0 gm/dL [facility] Platelet 214 145 - 357 x10(3)/[facility] RDW Standard Deviation 45.4 37.0 - 46.0 [facility] RDW coefficient of variation 13.1 11.5 - 14.1 % [facility] Mean Platelet Volume 11.0 7.6 - 12.9 fL [facility] NRBC% auto 0.0 % [facility] NRBC Absolute 0.000 0.000 - 0.000 x10(3)/[facility] Blood specimen (specimen) 03/24/2020 8:28 AM EST 03/24/2020 8:55 AM EST Narrative Resulting Agency Comment Spec In Lab Anjelica Jordan APRN HEMATOLOGY ORDER MAGAN [facility] [place] [address] * (ABNORMAL) Phosphorus (03/24/2020 8:28 AM EST) Phosphorus 4.6(H) 2.5 - 4.5 mg/dL [facility] Blood specimen (specimen) 03/24/2020 8:28 AM EST 03/24/2020 8:55 AM EST Narrative Resulting Agency Comment Spec In Lab Anjelica Jordan RESPIRATORY MEDICINE PHYSICIAN CHEMISTRY ORDERA BLES Performing Organization Address [facility] Co de Phone Number [facility] [place] [address] * Magnesium (03/24/2020 8:28 AM EST) Magnesium 1.07 0.69 - 1.07 mmol/L [facility] Comment:result rechecked-mary lou Blood specimen (specimen) 03/24/2020 8:28 AM EST 03/24/2020 8:55 AM EST Narrative Resulting Agency Comment Spec In Lab Anjelica Jordan RESPIRATORY MEDICINE PHYSICIAN CHEMISTRY ORDERA BLES Performing Organization Address [facility] Co de Phone Number [facility] [place] [address] * (ABNORMAL) Amylase (03/24/2020 8:28 AM EST) Amylase 21(L) 28 - 100 unit/L [facility] Blood specimen (specimen) 03/24/2020 8:28 AM EST 03/24/2020 8:55 AM EST Narrative Resulting Agency Comment Spec In Lab Anjelica Jordan RESPIRATORY MEDICINE PHYSICIAN CHEMISTRY ORDERA BLES Performing Organization Address [facility] de Phone Number [facility] [place] [address] * (ABNORMAL) CMP w/fasting Glucose (03/24/2020 8:28 AM EST) Glucose Fasting 138(H) 65 - 99 mg/dL [facility] Comment: ?Fasting* Glucose Interpretive Criteria [...] of Diabetes Mellitus, Position Statement from the [place] [employer]. ??Diabetes Care, Volume 33, Supplement 1, Apr 2009 Blood Urea Nitrogen 16 8 - 18 mg/dL [facility] Creatinine 0.77 0.70 - 1.20 mg/dL [facility] Sodium 140 135 - 145 mmol/L [facility] Potassium Not Perf 3.5 - 5.0 [facility] Comment: Unable to quantitate due [...] questions. Chloride 105 98 - 107 mmol/L [facility] Carbon Dioxide 26 22 - 31 mmol/L [facility] Anion Gap 9 5 - 15 mmol/L [facility] Calcium 8.2(L) 8.5 - 10.5 mg/dL [facility] Protein, Total 5.1(L) 6.1 - 8.0 gm/dL [facility] Albumin 3.1(L) 3.2 - 5.2 gm/dL [facility] Aspartate Aminotransferase Not Perf 0 - 30 [facility] Comment: Unable to quantitate due to sample hemolysis. ??Sample redraw suggested. Called by: MARY LOU, Read back by: Sanjuanita Mercado, Date/Time:03/24/20 09:48. Alanine Aminotransferase 168(H) 0 - 30 unit/L [facility] Alkaline Phosphatase 55 35 - 105 unit/L [facility] Bilirubin, Total 0.4 0.2 - 1.3 mg/dL [facility] Est Glomerular Filtration Rate 77 >=60 mL/min/1. 73 m?? [facility] Comment: This patient? s estimated [...] MD CHEMISTRY ORDERABL ES Performing Organization Address [facility] Co de Phone Number [facility] [place] [address] * Amylase Level Body Fluid KHRIS Drain (03/24/2020 5:07 AM EST) Amylase, Fluid 26 unit/L [facility] Comment: No reference range is available for the specimen type submitted. ??The performance of this assay for the submitted type has not been validated and results should be interpreted accordingly and with regard to the patient's clinical status. Amylase BF Type KHRIS Drain [facility] KHRIS Drain 03/24/2020 5:07 AM EST 03/24/2020 5:44 AM EST Narrative Resulting Agency Comment Spec In Lab Davian Carolina MD BODY FLUIDS AND ST OOLS ORDERABLES Performing Organization Address [facility]/ZIP Co de Phone Number [facility] [place] [address] * Scan, Peripheral Blood (03/23/2020 6:30 PM EST) Plat estimate Normal [facility] RBC Morphology Normal [facility] Vacuolated Neut Present [facility] Platelet Clumps Present [facility] Blood specimen (specimen) 03/23/2020 6:30 PM EST 03/23/2020 6:35 PM EST Narrative Resulting Agency Comment Spec In Lab Raj Kang MD HEMATOLOGY ORDERABLE S [facility] [place] [address] * (ABNORMAL) Differential, Automated (03/23/2020 6:30 PM EST) Neutrophil % 90.8 % [facility] Neutrophil Absolute 21.25(H) 1.70 - 6.10 x10(3)/mc L [facility] Lymph % 2.9 % [facility] Lymphocytes Abs 0.7(L) 0.9 - 3.2 x10(3)/ L [facility] Monocyte % 5.6 % [facility] Monocyte Abs 1.3(H) 0.3 - 0.9 x10(3)/mc L [facility] Eos % 0.0 % [facility] Eosinophils Abs 0.0 0.0 - 0.4 x10(3)/ L [facility] Basophil % 0.3 % [facility] Baso Absolute 0.1 0.0 - 0.1 x10(3)/mc L [facility] Immature Gran % 0.40 % [facility] Comment: Immature granulocytes(IG's)percentage and absolute count will include metamyelocytes, myelocytes, and promyelocytes. Blood smears from CBCs yielding IG's will be scanned manually for concordance. If this scan disagrees with the automated IG or if promyelocytes are noted, a manual differential will be performed. Immature Gran Absolute 0.10(H) 0.00 - 0.04 x10(3)/mc L [facility] Blood specimen (specimen) 03/23/2020 6:30 PM EST 03/23/2020 6:35 PM EST Narrative Resulting Agency Comment Spec In Lab Raj Kang MD HEMATOLOGY ORDERABLE S [facility] [place] [address] * (ABNORMAL) Hemogram (03/23/2020 6:30 PM EST) White Blood Cell 23.4(H) 4.0 - 9.5 x10(3)/mc L [facility] Red Blood Cell 4.07 4.00 - 5.21 x10(6)/mc L [facility] Hemoglobin 12.2 11.7 - 15.5 gm/dL [facility] Hematocrit 37.9 35.7 - 45.8 % [facility] Mean Cell Volume 93.1 82.6 - 94.4 fL [facility] Mean Cell Hemoglobin 30.0 27.1 - 32.0 pg [facility] Mean Cell Hemoglobin Concentration 32.2 31.7 - 35.0 gm/dL [facility] Platelet 275 145 - 357 x10(3)/mc L [facility] RDW Standard Deviation 43.7 37.0 - 46.0 fL [facility] RDW coefficient of variation 12.7 11.5 - 14.1 % [facility] Mean Platelet Volume 9.8 7.6 - 12.9 fL [facility] NRBC% auto 0.0 % [facility] NRBC Absolute 0.000 0.000 - 0.000 x10(3)/mc L [facility] Blood specimen (specimen) 03/23/2020 6:30 PM EST 03/23/2020 6:35 PM EST Narrative Resulting Agency Comment Spec In Lab Raj Kang MD HEMATOLOGY ORDERABLE S [facility] [place] [address] * (ABNORMAL) Phosphorus (03/23/2020 6:30 PM EST) Phosphorus 5.1(H) 2.5 - 4.5 mg/dL [facility] Blood specimen (specimen) 03/23/2020 6:30 PM EST 03/23/2020 6:35 PM EST Narrative Resulting Agency Comment Spec In Lab Davian Carolina MD CHEMISTRY ORDERABL ES Performing Organization Address [facility] Co de Phone Number [facility] [place] [address] * Magnesium (03/23/2020 6:30 PM EST) Pathologist [facility] [place] Magnesium 0.69 0.69 - 1.07 mmol/L [facility] Blood specimen (specimen) 03/23/2020 6:30 PM EST 03/23/2020 6:35 PM EST Narrative Resulting Agency Comment Spec In Lab Davian Carolina MD CHEMISTRY ORDERABL ES Performing Organization Address [facility] de Phone Number [facility] [place] [address] * (ABNORMAL) Comprehensive metabolic panel (non-fasting) (03/23/2020 6:30 PM EST) Glucose 217(H) 65 - 199 mg/dL [facility] Comment:Diabetes: >=200 mg/d L plus symptoms Blood Urea Nitrogen 16 8 - 18 mg/dL [facility] Creatinine 0.88 0.70 - 1.20 mg/dL [facility] Sodium 141 135 - 145 mmol/L [facility] Potassium 4.4 3.5 - 5.0 mmol/L [facility] Comment: Please note: ??Patients with WBC >100,000 may have falsely elevated Potassium levels. ??For accurate Potassium quantification in these patients send serum separator tube (gold top) for subsequent determinations. ??Contact the Clinical Chemistry Laboratory if there are any questions. Chloride 106 98 - 107 mmol/L [facility] Carbon Dioxide 24 22 - 31 mmol/L [facility] Anion Gap 11 5 - 15 mmol/L [facility] Calcium 8.1(L) 8.5 - 10.5 mg/dL [facility] Protein, Total 5.2(L) 6.1 - 8.0 gm/dL [facility] Albumin 3.5 3.2 - 5.2 gm/dL [facility] Aspartate Aminotransferase 161(H) 0 - 30 unit/L [facility] Alanine Aminotransferase 178(H) 0 - 30 unit/L [facility] Alkaline Phosphatase 66 35 - 105 unit/L [facility] Bilirubin, Total 1.4(H) 0.2 - 1.3 mg/dL [facility] Est Glomerular Filtration Rate 65 >=60 mL/min/1. 73 m?? [facility] Comment: This patient? s estimated [...] Lab Davian Carolina MD CHEMISTRY ORDERABL ES [facility] [place] [address] * Anaerobic Culture (03/23/2020 1:46 PM EST) Anaerobic Culture No anaerobic organisms isolated [facility] Bile specimen (specimen) 03/23/2020 1:46 PM EST 03/23/2020 2:08 PM EST Comment:BILE CULTURE Narrative Resulting Agency Comment Spec In Lab Davian Carolina MD MICROBIOLOGY - GEN ERAL ORDERABLES Performing Organization Address [facility] [place] [place] [address] * Body Fluid Culture, Aerobic (03/23/2020 1:46 PM EST) Body Fluid Culture No growth [facility] Gram Stain Cytocentrifuge Gram Stain performed Neutrophils seen No microorganisms seen. [facility] Bile specimen (specimen) 03/23/2020 1:46 PM EST 03/23/2020 2:08 PM EST Comment:BILE CULTURE Narrative Resulting Agency Comment Spec In Lab Davian Carolina MD MICROBIOLOGY - GEN ERAL ORDERABLES Performing Organization Address [facility] Co de Phone Number [facility] [place] [address] * Specimen to Pathology (03/23/2020 12:44 PM EST) AP Specimen 03/23/2020 12:4 4 PM EST 03/23/2020 12:44 PM EST Narrative [facility] - 03/23/2020 12:44 PM EST Specimen requisition ordered. ??Separate Pathology report to follow Davian Carolina MD PATHOLOGY/CYTOLOGY ORDERABLES Performing Organization Address [facility] Co de Phone Number [facility] [place] [address] * Specimen to Pathology (03/23/2020 12:39 PM EST) AP Specimen 03/23/2020 12:3 9 PM EST 03/23/2020 12:39 PM EST Narrative [facility] - 03/23/2020 12:39 PM EST Specimen requisition ordered. ??Separate Pathology report to follow Davian Carolina MD PATHOLOGY/CYTOLOGY ORDERABLES Performing Organization Address City/[facility]/ZIP Co de Phone Number [facility] [place] [address] * Specimen to Pathology (03/23/2020 9:54 AM EST) AP Specimen 03/23/2020 9:54 AM EST 03/23/2020 9:54 AM EST Narrative [facility] - 03/23/2020 9:54 AM EST Specimen requisition ordered. ??Separate Pathology report to follow Davian Carolina MD PATHOLOGY/CYTOLOGY ORDERABLES [facility] [place] [address] * Surgical Pathology Report (03/23/2020 9:25 AM EST) Final Diagnosis [id number] ? Location: [facility]; 0207; A The signing pathologist has (i) [...] Burton MD Verified: ??03/30/2020 ?Pathologist Performed at: ??-[facility] Dept. of Pathology, [place], [place] ADDITIONAL STUDIES Whole slide scan: B6,B10 [...] 7 cm ??Lesser Curvature: 5 cm ??Serosa: [place]-aguilar and glistening ??Mucosa: [place]-brown and granular with no lesions DUODENUM ??Length/Diameter: 20 x 2.0 cm ??Serosa: [place]-aguilar and glistening ??Mucosa: Agu[place] to aguilar-brown and normally folded ??Ampulla of Vater: Pronounced and patent ??Minor papilla: Patent and uninvolved OTHER Lymph nodes: Multiple lymph nodes are identified. Ink Designation: The posterior retroperitoneal margin is inked red. The anterior serosal surface is inked green. Sections/Processin g: The following tissue is submitted for frozen section: Bisected en face pancreatic neck margin. Knee Bolter sections in 23 cassettes as follows: ?B1-B2: [...] hepatic margin is inked black Sections/Processin g: Knee Bolter sections in 1 cassettes as follows: ?D1: ??cystic duct margin and specialty sales representative mucosa. ??laura ?Frozen Section FROZEN SECTION DIAGNOSIS _BFS1,2 Pancreatic neck margin: ?Negative for tumor 03/23/20 13:12 Electronically signed by: ??Micheal CLANCY, Hiro Verified: ??03/23/2020 ?Pathologist Performed at: ??-[facility] Dept. of Pathology, [place], [place] This intraoperative consultation should be interpreted as a preliminary diagnosis pending review of the entire specimen and special studies, if any. 03/30/2020 5:06 PM EST [facility] GALLBLADDER STRUCTURE / Unknown 03/23/2020 9:25 AM EST 03/23/2020 9:25 AM EST PANCREATIC STRUCTURE / Unknown 03/23/2020 9:25 AM EST 03/23/2020 9:25 AM EST LYMPH NODE SPECIMEN / Unknown 03/23/2020 9:25 AM EST 03/23/2020 9:25 AM EST GALLBLADDER STRUCTURE / Unknown 03/23/2020 9:25 AM EST 03/23/2020 9:25 AM EST Davian Carolina MD PATHOLOGY/CYTOLOGY ORDERABLES [facility] [place] [address] * Specimen to Pathology (03/23/2020 9:25 AM EST) AP Specimen 03/23/2020 9:25 AM EST 03/23/2020 9:25 AM EST Narrative [facility] - 03/23/2020 9:25 AM EST Specimen requisition ordered. ??Separate Pathology report to follow Davian Carolina MD PATHOLOGY/CYTOLOGY ORDERABLES [facility] [place] [address] * ABORH Recheck Status (03/23/2020 7:24 AM EST) ABORH Type Recheck Completed [facility] Blood specimen (specimen) 03/23/2020 7:24 AM EST 03/23/2020 7:26 AM EST Narrative Resulting Agency Comment Spec In Lab Davian Carolina MD BLOOD BANK LAB ORD ERABLES Performing Organization Address [facility]/ZIP Co de Phone Number [facility] [place] [address] * Antibody screen (03/23/2020 7:24 AM EST) Ab Screen Interp Negative [facility] Expires at [id number] on: 03/26/2020 [facility] Blood specimen (specimen) 03/23/2020 7:24 AM EST 03/23/2020 7:26 AM EST Narrative Resulting Agency Comment Spec In Lab Davian Carolina MD BLOOD BANK LAB ORD ERABLES Performing Organization Address [facility]/ZIP Co de Phone Number [facility] [place] [address] * ABO/Rh Typing (03/23/2020 7:24 AM EST) ABORH Type A Pos [facility] Blood specimen (specimen) 03/23/2020 7:24 AM EST 03/23/2020 7:26 AM EST Narrative Resulting Agency Comment Spec In Lab Davian Carolina MD BLOOD BANK LAB ORD ERABLES Performing Organization Address City/[facility]/ZIP Co de Phone Number [facility] [place] [address] documented in this encounter Visit Diagnoses Diagnosis [...] Intravenous, at 90 mL/hr, CONTINUOUS, Starting on Mon04/02/20 at 1800, Until Mon04/03/20 at 0945, Peripheral [...] 10 mg, Rectal, ONCE, 1 dose, On Tu03/31/20 at 1530, Routine Given 03/31/2020 3:21 PM EST 10 mg calcium carbonate (Tums) chewable tablet 1,000 mg 1,000 mg, Oral, ONCE, 1 dose, On Mon03/30/20 at 2100, Routine Given 03/30/2020 9:21 PM EST 1,000 mg calcium carbonate (Tums) chewable tablet 500 mg 500 mg, Oral, DAILY PRN, Starting on Mon03/31/20 at 1026, Until Pamella 04/02/20 at 0803, Heartburn, Routine Given 03/31/2020 10:54 [...] mL/hr, DAILY, 1 dose, First dose on Mon04/02/20 at 1800, fat emulsion 20% to be [...] Intravenous, EVERY 6 HOURS PRN, Starting on 04/05/20 at 1620, Until 04/06/20 at 1703, High Blood Pressure, SBP goal [...] mg/mL) in sodium chloride 0.9% 50 mL SCREEN CUTTER AND TRIMMER infusion Intravenous, SCREEN CUTTER AND TRIMMER ONLY, Starting on Mon03/23/20 at 1815, Until [...] Oral, EVERY 6 HOURS PRN, Starting on Mon04/11/20 at 0814, Until 04/11/20 at 1820, Pain, [...] NIGHTLY, First dose (after last modification) on 03/29/20 at 1130, Until Discontinued, CORRECTION BOLUS [...] SCHEDULED, First dose (after last modification) on Mon04/02/20 at 1200, Until Discontinued, CORRECTION BOLUS [1-4 [...] WHILE AWAKE, 3 doses, First dose on 04/06/20 at 0930, Last dose on Mon04/06/20 at 1600, Routine Given 04/06/2020 4:00 PM EST 3 mLs Given 04/06/2020 12:39 PM EST 3 mLs ketorolac (Toradol) (15 mg/mL) injection 15 mg 15 mg, Intravenous, EVERY 6 HOURS PRN, Starting on 03/29/20 at 1006, Until Tu03/31/20 at 0919, Pain, [...] PRN, Starting on Mon03/25/20 at 1415, Until Mon03/29/20 at 0847, High Blood Pressure, For SBP [...] doses, Starting on 04/05/20 at 1007, Until Mon04/05/20 at 1100, High Blood Pressure, for SBP>160, [...] Intravenous, EVERY 2 HOURS PRN, Starting on 03/29/20 at 0846, Until 03/30/20 at 0840, High Blood Pressure, For SBP [...] at 1610, Until Mon04/01/20 at 1632, INEZ LAN: cabinet override lidocaine (LIDODERM) 5 % patch [...] Discontinued, Remove lidocaine 5 %(700 mg/patch) patch kiqjvh-xiiaakrh-gvhcoro (Creon 24) 24,000-76,000 -120,000 unit per capsule 1-2 capsule 1-2 capsule, Oral, 3 TIMES DAILY WITH MEALS, First dose on 03/30/20 at 0915, Until Discontinued, Patient to self-determine dose based on amount eaten., Routine Given 04/01/2020 8:13 AM EST 1 capsule Given 03/31/2020 5:07 PM EST 1 capsule Given 03/31/2020 12:58 PM EST 1 capsule dcthzq-gfjxvero-hzzvuif (Creon 24) 24,000-76,000 -120,000 unit per capsule [...] 2 g, Intravenous, ONCE, 1 dose, On Mon03/24/20 at 0145, Administer over 120 Minutes New Bag 03/24/2020 1:48 AM EST 2 g 25 mL/hr magnesium sulfate 2 g in sterile water 50 mL infusion 2 g, Intravenous, ONCE, 1 dose, On Mon04/02/20 at 0845, Administer over 120 Minutes New [...] DAILY, First dose (after last modification) on Mon04/11/20 at 0915, Until Discontinued, DO NOT CRUSH [...] 2 HOURS, 2 doses, First dose on Mon04/04/20 at 1115, Last dose on Mon04/04/20 at [...] Minutes, Give via PICC. Warning Vesicant/Irritant Medication 03/26/2020 9:18 AM EST 20 mEq 100 mL/hr New 03/26/2020 5:55 AM EST 20 mEq 100 mL/hr potassium chloride 20 mEq in sterile water 100 mL infusion 20 mEq, Intravenous, EVERY 2 HOURS, 2 doses, First dose on Mon04/01/20 at 0830, Last dose on Mon04/01/20 at 1030, Administer over 60 Minutes, Warning Vesicant/Irritant Medication New Bag 04/01/2020 11:30 AM EST 20 mEq 100 mL/hr New Bag 04/01/2020 9:59 AM EST 20 mEq 100 mL/hr potassium chloride 20 mEq in sterile water 100 mL infusion 20 mEq, Intravenous, ONCE, 1 dose, On Mon04/06/20 at 0900, Administer over 60 Minutes, Warning Vesicant/Irritant Medication New Bag 04/06/2020 10:53 AM EST 20 mEq 100 mL/hr potassium phosphate 15 mMol in sodium chloride 0.9% 250 mL 15 mmol, Intravenous, ONCE, 1 dose, On Mon03/25/20 at 0945, Administer over 4 Hours, Administer over 4-6 hours New 03/25/2020 11:30 AM EST 15 mmol potassium phosphate 15 mMol in sodium chloride 0.9% 250 mL 15 mmol, Intravenous, ONCE, 1 dose, On Pamella 03/26/20 at 0615, Administer over 4 Hours, Administer over 4-6 hours [facility] 03/26/2020 5:57 AM EST 15 mmol potassium phosphate 15 mMol in sodium chloride 0.9% 250 mL 15 mmol, Intravenous, ONCE, 1 dose, On [facility] 04/04/20 at 1115, Administer over 4 Hours, Administer over 4-6 hours [facility] 04/04/2020 11:52 AM EST 15 mmol senna-docusate [...] ONCE, 1 dose, On Mon04/01/20 at 2045 [facility] 04/01/2020 8:20 PM EST sodium chloride 0.9% infusion 10 mL/hr, Intravenous, CONTINUOUS, Starting on Mon03/25/20 at 1845, Until Mon03/30/20 at 0823, KVO 03/26/2020 8:31 PM EST 10 mL/hr 10 mL/hr New Bag 03/25/2020 6:06 PM EST 10 mL/hr 10 mL/hr sodium chloride 0.9% with potassium chloride 20 mEq infusion 100 mL/hr, Intravenous, CONTINUOUS, Starting on Mon04/01/20 at 1845, Until Mon04/03/20 at 1052, Warning Vesicant/Irritant Medication New Bag 04/02/2020 8:28 PM EST 100 mL/hr 100 mL/hr New Bag 04/02/2020 1:10 PM EST 100 mL/hr 100 mL/hr New Bag 04/02/2020 3:32 AM EST 100 mL/hr 100 [...] 03/29/2020 7:49 PM EST 75 mL/hr New Bag 03/28/2020 6:58 PM EST 75 mL/hr New Bag 03/27/2020 6:51 PM EST 75 mL/hr TPN [...] CONTINUOUS, Starting on Mon04/08/20 at 1800, Until Pamella 04/09/20 at 1759, Administer over 24 Hours New [...] RN) 0911 (Given - Provider: Wendy Ruiz RN)1742 (Given - Provider: Wendy Ruiz RN) [...] Carolina RN) 2043 (Given - Provider: Jim Lim, RN) insulin lispro (HumaLOG) (100 unit/mL) subcutaneous [...] Routine 005 (Given - Provider: Mervin Grimes RN)040 (Not Given - Provider: Mervin Grimes RN - Reason: Order parameters not met)0856 (Given - Provider: Wendy Ruiz RN)1329 (Given - Provider: Wendy Ruiz RN)1716 (Given - Provider: Wendy Ruiz RN)2019 (Given - Provider: Amado Carolina, LOS) 005 (Given - Provider: Amado Carolina RN)0400 (Not Given - Provider: Amado Carolina RN - Reason: Order parameters not met)0908 (Given - Provider: Wendy Ruiz RN)1325 (Given - Provider: Wendy Ruiz RN)1738 (Given - Provider: Wendy Ruiz RN)2056 (Given - Provider: Jim Lim, LOS) 0000 (Not Given - Provider: Jim Lim, LOS - Reason: Order parameters not met)0356 (Given - Provider: Jim Lim, LOS)0815 (Given - Provider: Alanna Kaplan, RN)1200 (Not Given - Provider: Alanna Kaplan [...] (Patch Removed - Provider: Jim Lim, LOS) uenywq-xyohgvvq-gpuhprj DR (Creon 24) 24,000-76,000 -120,000 unit per capsule 2 capsule 2 capsule, Oral, 3 TIMES DAILY WITH MEALS, First dose on Pamella 04/09/20 at 1800, Until Discontinued, Routine 1715 (Given - Provider: Wendy Ruiz RN) 0911 (Given - Provider: Wendy Ruiz RN)1249 (Given - Provider: Wendy Ruiz RN)1739 (Given - Provider: Wendy Ruiz, LOS) 0812 (Given - Provider: Alanna Kaplan, RN)1205 (Given - Provider: Alanna Kaplan, RN) magnesium sulfate 2 g in sterile water 50 mL infusion (COMPLETED) 2 g, Intravenous, ONCE, 1 dose, On Mon04/10/20 at 0915, Administer over 120 Minutes 0912 (New Bag - Provider: Wedny Ruiz RN)1112 (Stopped - Provider: Wendy Ruiz [...] Ruiz RN)1739 (Given - Provider: Wendy Ruiz RN)2044 (Given [...] Ruiz RN)1401 (Stopped - Provider: Wendy Ruiz RN)2020 (New Bag - Provider: Amado Carolina RN)205 (Stopped - Provider: Amado Carolina RN) 030 (New Bag - Provider: Amado Carolina RN)033 (Stopped - Provider: Amado Carolina, RN) pantoprazole (Protonix) injection 40 mg (CANCELED) 40 mg, Intravenous, 2 TIMES DAILY, First dose on Mon04/01/20 at 2100, Until Discontinued 0856 (Given - Provider: Wendy Ruiz, LOS)2019 (Given - Provider: Amado Carolina RN) 09 (Given - Provider: Wendy Ruiz RN)2040 (Given - Provider: Jim Lim, RN) 0813 (Not Given - Provider: Alanna [...] 1756, Until 04/11/20 at 0814, Pain, Routine 005 (Given - Provider: Josiah Oakley RN)2040 (Given [...] Wheezing, Routine 1150 (Given - Provider: Wendy Ruiz RN) labetaloL (Normodyne) (5 mg/mL) injection solution 10 [...] Intravenous, EVERY 1 MIN PRN, Starting on 03/24/20 at 0505, Until 04/11/20 at 1820, Opioid Reversal, May repeat every 60 seconds to increase respiratory rate. DO NOT exceed 2 mg total dose. Per SCREEN CUTTER AND TRIMMER order., Recovery ([facility]-Hospital Unit), Routine ondansetron (pf) (Zofran) (2 mg/mL) injection 4-8 mg 4-8 mg, Intravenous, EVERY 8 HOURS PRN, Starting on 03/24/20 at 0505, Until 04/11/20 at 1820, Nausea, Vomiting, If multiple antiemetics are ordered, use ondansetron first May repeat times one in 30 minutes if ineffective. 190 (Given - Provider: Wendy Ruiz RN)2042 (Given - Provider: Jim Lim RN) phenol [...] documented as of this encounter Care Teams Drilling Foreman Relationship Specialty Start Date End Date Zeny James APRN [address] [place] [address] PCP - General Family Medicine 09/23/19 documented as of this encounter
--- OUTSIDE RECORDS SUMMARY | 2024-05-10 14:54 | XMS_ITS | Encounter Summary ---
Author Organization [facility] [place] [address] Care Team Providers Care Third Rail Installer Name Role Phone Zeny James APRN Primary Care Provider Reason for Visit * Auth/Cert Specialty Diagnoses / Procedures Referred By Nir potts Referred To Contact Diagnoses IPMN Procedures PRO PART REMV PANC, PROX+PART DUOD+ANAST @PANCREATECTOMY, WHIPPLE TYPE WITH PANCREATOJEJUNOSTOMY (WRVU 52.79) MODIFIER ROBOT,DAVINCI XI Referral ID Status Reason Start Date Expiration Date Visits Re quested Visits Authorized [id number] 1 1 Encounter Details Date Type Department Care Team (Late st Contact Info) Description 04/02/2020 3:16 PM EST Anesthesia [place] [address] [facility] [place] [address] Anesthesia Record Procedure Summary Procedure Name Responsible [...] injectable catheter, open-ended catheter, lot number (specify) ([id number]); 5 Fr; 39 cm; placement verified by [...] by: Kari; Removal Date: 04/02/20; Removal Time: 16004/02/20 1527 by Patti Casanova 04/02/20 1603 by [...] Department of Anesthesiology Post-procedure Note Patient: Linda Maggie Procedure Summary Date: 04/02/20 Room / Location: [facility] ENDO 3 / [facility] Anesthesia Start: 1516 Anesthesia Stop: 1606 Procedure: EGD, UPPER GI ENDOSCOPY (N/A Trunk) Diagnosis: (Post Whipple) Surgeon: Ralf Urrutia MD Responsible Provider: Raimundo Murrieta MD Anesthesia Type: general ASA Status: 4 All Anesthesia Providers: Anesthesiologist: Raimundo Murrieta MD SINTERING PLANT SUPERVISOR: Kenia Aponte CRNA Student Nurse Director And Professor: Patti Casanova Vitals Value Taken Time BP [...] in female, estrogen receptor positive Dx: 12/05/19 [facility] ??? AK (actinic keratosis) ??? 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 ER-pos; ME-neg; HER2=2+. 02/06/01: R MRM/ax dissection. On path, [...] N/A 12/05/2019 Mammo Stereotactic Biopsy Left 12/05/2019 [facility] RAD MAMMOGRAPHY ??? MASTECTOMY Right with RT ??? PRO BX/REMV, LYMPH NODE, DEEP AXILL Left 12/20/2019 BIOPSY OR EXCISION OF LYMPH NODE(S), OPEN, DEEP AXILLARY NODE(S) (WRVU 6.43) performed by Susan Rivera MD at [facility] OSC ??? PRO COLONOSCOPY, DIAGNOSTIC 01/07/2014 COLONOSCOPY, DIAGNOSTIC performed by Izzy Johnson MD at [facility] ENDOSCOPY ??? PRO ENDOSCOPIC US EXAM, ESOPH N/A 11/15/2019 UPPER EUS- ENDOSCOPIC ULTRASOUND performed by Ralf Urrutia MD at [facility] ENDOSCOPY ??? PRO INTRAOP SENTINEL LYMPH ID W/DYE INJECTION Left 12/20/2019 INTRAOPERATIVE ID (MAPPING) SENTINEL LYMPH NODE,INCLUDES INJECTION (WRVU 2.5) performed by Susan Rivera MD at [facility] OSC ??? PRO MASTECTOMY, SIMPLE, COMPLETE Left 12/20/2019 MASTECTOMY, SIMPLE, COMPLETE (WRVU 15.85) performed by Susan Rivera MD at [facility] OSC ??? PRO OMENTAL FLAP, INTRA-ABDOMINAL 03/23/2020 @OMENTAL FLAP, INTRA-ABDOMINAL (WRVU 6.54) performed by Regino Carolina MD at [facility] MAIN OR ??? PRO UNLISTED PX PNCRS N/A 03/23/2020 ROBOTIC PANCREATECTOMY,WHIPPLE, PARTIAL GASTRECTOMY W/ PANCREATOJEJUNOSTOMY performed by Regino Carolina MD at [facility] MAIN OR Social History Tobacco Use [...] risks discussed with patient. Plan discussed with SINTERING PLANT SUPERVISOR. PAT Clinic Note documented in this encounter Plan of Treatment Upcoming Encounters Date Type Department Care Team (Late st Contact Info) Description 01/01/2025 2:00 PM EDT Office Visit Hematology/Oncology at [address] [phone] Jeffery Sanz MD [facility] DR HEMATOLOGY [place] [address] Mary Nails APRN [address] [place] [address] [place] [address] 01/01/2025 2:30 PM EDT Infusion Hematology Oncology at [address] [phone] 01/14/2025 11:00 AM EDT Laboratory Appointment Lab [address] [phone] 01/14/2025 1:[address] [place] [phone] Regino Carolina MD [facility] [place] [address] 01/14/2025 2:00 PM EDT Office Visit General Surgery at [facility] [place] [phone] Regino Carolina MD [facility] [place] [address] documented as of this encounter Visit Diagnoses [...] mg documented in this encounter Care Teams Third Rail Installer Relationship Specialty Start Date End Date Zayda Jameslaide, JESUS ALBERTO [address] [place] [address] PCP - General Family Medicine 09/23/19 documented as of this encounter
--- NOTE | 2024-05-10 14:55 | DI.RAD_ITS ---
Exam(s) XR THORACIC SPINE COMPLETE EXAM: XR THORACIC SPINE COMPLETE CLINICAL HISTORY: M54.9 Dorsalgia, back pain. TECHNIQUE: 2D digital imaging was performed. Three views. COMPARISON: CR XR CHEST 2V PA LATERAL from 01/20/2023 CR XR LUMBAR SPINE COMPLETE from 05/10/2024 FINDINGS: BONES: There is no acute fracture or gross evidence of a destructive lesion. Stable mild T5 and T10 c ompression fractures. There remaining vertebral bodies and posterior elements are unremarkable. ALIGNMENT: Mild dextroscoliosis. DISKS: Mild multilevel narrowing of the disc spaces anteriorly with small endplate osteophytes. SOFT TISSUE: Visualized lungs are clear. IMPRESSION: Stable mild compression fractures of T5 and T10. No new abnormalities. DATA REPOSITORY: RADIATION DOSE DELIVERED:
--- OUTSIDE RECORDS SUMMARY | 2024-05-10 14:56 | XMS_ITS | Encounter Summary ---
Author Organization [facility] Address [facility] [place] [address] Care Team Providers Care Licensed Loan Officer Assistant Name Role Phone Zeny James APRN Primary Care Provider Reason for Visit * Auth/Cert Specialty Diagnoses / Procedures Referred By Nir t Referred To Contact Diagnoses IPMN Procedures PRO PART REMV PANC, PROX+PART DUOD+ANAST @PANCREATECTOMY, WHIPPLE TYPE WITH PANCREATOJEJUNOSTOMY (WRVU 52.79) MODIFIER ROBOT,DAVINCI XI Referral ID Status Reason Start Date Expiration Date Visits Re quested Visits Authorized [id number] 1 1 Encounter Details Date Type Department Care Team (Late st Contact Info) Description 04/02/2020 2:55 PM EST - 04/02/2020 3:25 PM EST [place] [id number] Ralf Urrutia MD [facility] [place] [address] EGD, UPPER GI ENDOSCOPY (WRVU 2.09) Social [...] Abel is a 74 year woman from [place], [place]. She [facility] ED on [...] of pancreatic duct/cyst fluid cytopathology per Acc# [id number] showed neoplastic Cells Present. Abundant macrophages, mixed [...] to: Home VNA: Yes Name of facility: [facility]. Contact information: PHONE: [phone] Discharge Conditions/Prognosis: Stable Discharge Medications: The following [...] medications with new dosing Dose Details * lzascl-gaodcggq-ageqeoi DR 24,000-76,000 -120,000 unit Cpdr Commonly known as: Creon Take 1-2 capsules by mouth 3 times daily (with meals). With Meals: Take 1-2 capsules by mouth. WithSnacks: Take 1 capsule by mouth. What changed: See the new instructions. 1-2 capsule Quantity: 270 capsule Refills: 3 * gcxkpl-syzyleew-uwgqtfr DR 24,000-76,000 -120,000 unit Cpdr Commonly known [...] [place] 04/21/2020 2:30 PM Davian Carolina MD [facility] 04/21/2020 2:[address] [facility] Outpatient Services/Studies: CBC (with Diff) Standing Status: [...] AND/OR HOSPICE SERVICES) PATIENT'S LOCATION: Linda Abel [address] [place] [id number] [place] [phone] Director Call's Name: self In discussion with the attending physician, it is certified that this patient is under their care and that they, or a Nurse Practitioner,Clinical Nurse specialist or Physician Market Director who is working directly with them, had [...] andblood sugar monitoring. HOME HEALTH CARE AGENCY: [facility] PHONE: [phone] FAX: [phone] Start of care: 24-48hrs after discharge FOR [...] obtained from this patient's PCP: Zeny James, SALES ACCOUNT DIRECTOR [address] [facility] 1 / [facility] [id number] All VNA agencies which cover the area of patient's residence have been reviewed, either verbally kehinde writing, and patient/family have chosen the home health care agency noted Question Response Notes Agency name and contact information [facility] Patient location post discharge Home What services are requested Registered Nurse Start date 04/01/2020 Responsible MD post discharge contact info PCP and Dr. Carolina Referral for Home TPN Order Comments: Adult Home TPN Orders: Home infusion company: Linda Abel [address] [facility] [place] [place] [address] DAVIAN CAROLINA Diagnosis requiring TPN: IPMN Diabetic: [...] and given to the patient. Patient Instructions [facility] of General Surgery Discharge Instructions CALL YOUR [...] with the Surgery nurses. The number is [phone]. - During the night or weekends call the [facility] coordinate measuring equipment operator at [phone] and ask to speak to the surgery resident technical solutions consultant for general surgery. Please note: Your surgeon may not be Hr Director, especially during the night or on weekends, so be ready to describe yourself and your surgery when you call. Follow up appointments: Future Appointments Date Time Provider Department Center 04/21/2020 1:30 PM LAB, THREE L Lab 3L GINA [place] 04/21/2020 2:30 PM Davian Carolina MD [facility] 04/21/2020 2:[address] [facility] [x] Follow-up appointment with General Surgery has already been scheduled [] A request for a follow-up appointment has been made and you should receive information via phone/mail in the next week. If you do not hear anything, please call the clinic at [phone] to confirm or reschedule. - A follow-up [...] please call the General Surgery Clinic nurses [phone] for prior authorizations assistance General Instructions Upper [...] the day after the procedure, use an rbmu-svy-jvuefde spray to numb your throat. Sucking on [...] occurs, please contact your Doctor. Please call [phone] before 8pm Mon-Fri with problems, questions or concerns. If you call after 8pm or on weekends, call the Hospital at [phone] and ask to speak to the Mica Layer technical solutions consultant and the coordinate measuring equipment operator will contact that person for you. When should you call for help? Call [phone] anytime you think you may need emergency [...] any problems. Where can you learn more? [facility] View your After Visit Summary and more online at [email or web address] If you would like to provide feedback about your hospital experience, please call the Office of Patient and Family Relations at . If you have received this After Visit Summary in error, please immediately return it in person to the department, or notify the [facility] Privacy Office by calling toll free at between the hours of 8AM and 5PM to arrange for our retrieval of the documents at no cost to you. Content Version: 12.2 ?? [phone] [email or web address]. Care instructions adapted under license by [facility]. If you have questions about a medical condition or this instruction, always ask your healthcare professional. [employer] disclaims any warranty or liability for your [...] questions you can call our clinic at [phone] Treatment of Low Blood Sugar (Hypoglycemia) If your BG is lower than 80, you are likely to feel shaky, sweaty and lightheaded. This is a signalthat your body needs more sugar. Quickly eat or drink a small serving of something sweet, such as: 4 ounces fruit juice or regular (not diet) soda 6 [employer] small box of raisins 4 glucose tablets [...] Zeny James APRN Signed: Larry Longo MD [facility] Surgical Oncology Service Team Pager #[phone] 04/11/2020 6:07 PM documented in this encounter [...] the day after the procedure, use an rvzf-exp-qmzmodf spray to numb your throat. Sucking on [...] occurs, please contact your Doctor. Please call [phone] before 8pm Mon-Fri with problems, questions or concerns. If you call after 8pm or on weekends, call the Hospital at [phone] and ask to speak to the Mica Layer technical solutions consultant and the coordinate measuring equipment operator will contact that person for you. [...] any problems. Where can you learn more? [facility] View your After Visit Summary and more online at [email or web address] If you would like to provide feedback about your hospital experience, please call the Office of Patient and Family Relations at . If you have received this After Visit Summary in error, please immediately return it in person to the department, or notify the [facility] Privacy Office by calling toll free at between the hours of 8AM and 5PM to arrange for our retrieval of the documents at no cost to you. Content Version: 12.2 ?? [phone] [email or web address]. Care instructions adapted under license by [facility]. If you have questions about a medical condition or this instruction, always ask your healthcare professional. [employer] disclaims any warranty or liability for your [...] questions you can call our clinic at [phone] Treatment of Low Blood Sugar (Hypoglycemia) If [...] Longo MD - 03/25/2020 2:04 PM EST [facility] Department of General Surgery Discharge Instructions [...] with the Surgery nurses. The number is [phone]. - During the night or weekends call the [facility] coordinate measuring equipment operator at [phone] and ask to speak to the surgery resident technical solutions consultant for general surgery. Please note: Your surgeon may not be Hr Director, especially during the night or on weekends, so be ready to describe yourself and your surgery when you call. Follow up appointments: Future Appointments Date Time Provider Department Center 04/21/2020 1:30 PM LAB, THREE L Lab 3L GINA [place] 04/21/2020 2:30 PM Davian Carolina MD [facility] 04/21/2020 2:[address] [facility] [x] Follow-up appointment with General Surgery has already been scheduled [] A request for a follow-up appointment has been made and you should receive information via phone/mail in the next week. If you do not hear anything, please call the clinic at [phone] to confirm or reschedule. - A follow-up [...] please call the General Surgery Clinic nurses [phone] for prior authorizations assistance documented in this [...] (E.C.) Take 81 mg by mouth daily. cshacb-wwqpeteh-qtbb ase DR (Creon 24) 24,000-76,000 -120,000 unit [...] x 5/16 Syringe 1 each by [facility].(Non-Drug; Combo Route) route nightly. 30 Syringe 11 04/11/2020 05/19/2020 lancets 33 gauge Misc 1 each by Misc.(Non-Drug; Combo Route) route 3 times daily (before meals). 100 each 11 04/11/2020 05/19/2020 novoLIN R Solution Add 8 units to TPN bag every night 10 mL 12 04/11/2020 05/19/2020 leghsp-umngyvvo-upok ase DR (Creon) 24,000-76,000 -120,000 unit Capsule, Delayed Release(E.C.) Take 1-2 capsules by mouth 3 times daily (with meals). With Meals: Take 1-2 capsules by mouth. With Snacks: Take 1 capsule by mouth. 270 capsule 3 03/31/2020 09/07/2020 CALCIUM CARBONATE-VITAMIN D3 ORAL Take 1 tablet by mouth daily. 01/19/2023 fluticasone propionate (FLONASE) 50 mcg/actuation [place], Suspension 1 spray by Each Nare route [...] sent electronically to pt's home pharmacy.[facility] in a wheelchair accompanied by 2 [place] staff. * Victoria Calle RN - 04/11/2020 10:13 AM EST MORGAN liagino, Willem and care team (, RD) working on arranging home DC today with TPN and with [place] home paraprofessional to assist. Orders updated. MORGAN liaison coordinating. Noé Azevedo to transport home and assist at DC. Victoria Calle RN Pager [phone] * Lora Berg, RD - 04/11/2020 10:00 [...] to discuss plan with provider Team pager #[phone]. Nutrition Support: TPN Formula for Discharge (Show up to 1 orders; newest on the left.) Start date and time 04/11/2020 1800 Adult TPN [[id number]] Order Status Active Macro Ingredients amino acid 15% no.5 (ClinisoL) 110 g dextrose 70% 118 g Electrolytes sodium phosphate 48 mmol potassium chloride 100 mEq sodium chloride 210 mEq Additives trace elements Zn-Cu-Mn-Se 1 mL ascorbic acid (vitamin C) 100 mg Vit D8-Y4-L1-B5-B6 (B Complex) 1 mL zinc sulfate 10 [...] 1800 04/09/2020 1800 04/08/2020 1800 Adult TPN [[id number]] TPN Adult [[id number]] TPN Adult [[id number]] Order Status Active Active Last Admin New Bag at 04/10/2020 1759 by Wendy Ruiz RN New Bag at 04/08/2020 1722 by Inez Lan RN Medications insulin regular human 8 Units 8 Units 8 Units Additives trace elements Zn-Cu-Mn-Se 1 mL 1 mL 1 mL ascorbic acid (vitamin C) 100 mg 100 mg 100 mg Vit E4-M7-L3-B5-B6 (B Complex) 1 mL 1 mL 1 [...] encounter: 53.3 kg (117 lb 9.6 oz). Moose Body Weight: 50-55 kg Usual Body Weight: [...] up while inpatient. LORA BERG RD Pager #:[phone] * Larry Longo MD - 04/11/2020 8:18 AM EST Surgical Oncology Inpatient Progress Note Patient Name: Linda MERAZ; Age: 6 1945; 74 y.o. Room/Bed: [address] [place] [address] Today's Date: 04/11/20 ID: Linda Abel is [...] 9.6 oz) Labs: Recent Labs 04/11/20 0535 04/10/2031304/09/20 0030 WBC 13.2* 13.1* 13.5* HGB 9.7* 9.6* 10.1* HCT 29.4* 28.6* 30.4* PLATELET 371* 429* 426* Recent Labs 04/11/20 0535 04/10/20314 03/24/20 0030 NA 130* 131* 133* K 4.3 3.9 3.9 CL 99 100 102 CO2 24 23 BUN 15 16 15 CREATININE 0.34* 0.35* 0.31* GLUCOSE 165 156 157 CALCIUM 7.7* 7.6* 7.7* MAGNESIUM 0.69 0.64* 0.78 PHOS 3.4 3.4 2.7 LFT's No results found for: ALKPHOS, AST, ALBUMIN, BILIDIR, BILITOT, ALT, PROT KHRSI Amylase: 03/24: 03/25: 22 03/26: 15 03/27: 327 03/28: [...] Longo MD Surgical Oncology Service Team Pager #[phone] 04/11/20 8:18 AM * Larry Longo MD - 04/10/2020 7:59 AM EST Surgical Oncology Inpatient Progress Note Patient Name: Linda MERAZ; Age: 6 1945; 74 y.o. Room/Bed: [address] [place] [address] Today's Date: 04/10/20 ID: Linda Abel is [...] Amylase: 03/24: 26 12: 22 1210: 15 03/27: 327 03/28: 12 [...] DM mgmt - [place] [facility] for discharge with TPN [...] Longo MD Surgical Oncology Service Team Pager #[phone] 04/10/20 7:59 AM * Duke Tidwell - 04/09/2020 3:32 PM EST Investigator Operator Encounter Note Patient Name: Linda Abel : [id number] MR#: [id number] Admit Date: 03/23/2020 5:51 AM Hospital Day 17 days Narrative: Follow-up visit for continued assessment and support. Pt was sleeping and I will visit an other time. Assessment: Intervention and Outcome: Follow-up: Time in Direct Care: Duke Tidwell 04/09/2020 * Alesha Casillas RN - 04/09/2020 12:54 PM EST OFFICE OF CARE MANAGEMENT [employer] Follow-up Note Alesha Casillas RN reviewed record and discussed patient with Care Team. Patient plan of care discussed in multidisciplinary rounds and assessment for continuing care and discharge needs. Diagnosis: IPMN (intraductal papillary mucinous neoplasm) LOS Hospital: 17 days INSURANCE: Payor: MEDICARE / Plan: MEDICARE PART A & B / Product Type: *No Product type* / SECONDARY INSURANCE: [employer] [facility] [place] DECISION MAKER: Attempt Cardiopulmonary Resuscitation - Inpatient <no information> Patient continues to require hospitalization. Per team, patient requires inpatient status r/t increasing diet, TPN and c-diff pending results. Discharge date planned for 04/11 if medically ready. SonRob will be here around 1pm and will need a teach with patient. Aury from [facility] will see patient this afternoon and arrange another teach on Monday with patient and son around 1-2pm. [facility] will confirm Neftali will see patient Monday afternoon to complete third teach. Patient understands and has agreed to learn to self administer her TPN. Referred Roberto Carlos from [employer] to see patient as wellfor support. Aury from [facility] will call son and set up today. Friend Inez, Nurse [phone] next to patient will be there to check in as well as a resource for patient but is not able to be available all the time. Son Roberto Carlos has committed to staying with patient x2 weeks and then friend Luba will stay with patient. Asked team to put order in to request to single lumen before discharge. Current Referral in place: [facility] for RN, PT to eval for needs in home, OT Transportation: Son Roberto Carlos will drive patient home via private vehicle when medically ready. Support: Son, friends [employer] to follow with team and family to [...] 3.6 CL 102 101 101 CO2 24 24 BUN 15 15 16 CREATININE [...] Body Fluid Culture, Aerobic & Anaerobic Bile [[id number]] Collected: 03/23/20 134 Lab Status: Final result Specimen: Bile Updated: 03/27/20 1333 Body Fluid Culture, Aerobic [[id number]] Collected: 03/23/20 134 Lab Status: Final result Specimen: Bile Updated: 03/27/20 1333 Body Fluid Culture No growth Gram Stain -- Cytocentrifuge Gram Stain performed Neutrophils seen No microorganisms seen. Anaerobic Culture [[id number]] Collected: 03/23/20 134 Lab Status: Final result Specimen: Bile Updated: 03/27/20 1117 Anaerobic Culture No anaerobic organisms isolated COVID-19 PCR [[id number]] Collected: 03/20/20 1057 Lab Status: Final result [...] diagnosis of COVID-19 is performed using the [employer] m SARS-CoV-2 Assay as authorized by the FDA Emergency Use Authorization (EUA). This EUA assay is intended for In-vitro Diagnostic (IVD) use with respiratory specimens such as nasopharyngeal swabs collected from individuals during the acute phase of infection. This assay is performed based on the instructions for use provided by [employer] and additional guidance provided by CDC and FDA. Testing is performed in the Clinical Genomics and Advanced Technology Laboratory within the Department of Pathology and Laboratory Medicine at [facility], certified under the Clinical Laboratory Improvement [...] fact sheets at the following FDA website: https://www.fda.gov/medical-devices/fkoqjtobuwv-ivzpetw-1647-dtmre-61-cbbsnpwwq- qbq-ywobneyenctsjq-kaevpev-devices/wydnq-xndomgpmplj-onpa SARS-Cov-2 RNA Source REHABILITATION THERAPY TECHNICIAN Swab Diagnostic Studies: None new Inpatient Medications: [...] clinical changes occur or newquestions arise, page [phone]. Case discussed with Dr. Blas Attending staff [...] 1800 04/08/2020 1800 04/07/2020 1800 TPN Adult [[id number]] TPN Adult [[id number]] TPN Adult [[id number]] Order Status Active Active Last Admin New Bag at 04/08/2020 1722 by Inez Lan RN New Bag at 04/07/2020 1901 by Sanjuanita Mercado RN Medications insulin regular human 8 Units 8 Units 8 Units Additives trace elements Zn-Cu-Mn-Se 1 mL 1 mL 1 mL ascorbic acid (vitamin C) 100 mg 100 mg 100 mg Vit M7-F8-K5-B5-B6 (B Complex) 1 mL 1 mL 1 [...] encounter: 53.3 kg (117 lb 9.6 oz). Moose Body Weight: 50 kg Usual Body Weight: [...] Protein-calorie Malnutrition: Not identified (Chencho molina al, JPEN J Parenteral Enteral Nutr. 2011; 36(3): 273-83) Nutrition to continue to follow up while inpatient. JOSUE LORA RD Pager #[phone] * Katie Santamaria APRN - 04/09/2020 10:37 [...] for 118 G dextrose) Katie Santamaria APRN [facility] Endocrinology Diabetes Management Pager [phone] * Larry Longo MD - 04/09/2020 9:21 [...] 26 129: 22 1210: 15 03/27: 327 12: 12 Micro: Bile duct cx [...] Longo MD Surgical Oncology Service Team Pager #[phone] 04/09/20 9:21 AM * Josue Lora RD [...] 1800 04/07/2020 1800 04/06/2020 1800 TPN Adult [[id number]] TPN Adult [[id number]] TPN Adult [[id number]] Order Status Active Active Last Admin New Bag at 04/07/2020 1901 by Sanjuanita Mercado RN New Bag at 04/06/2020 1824 by Maria Esther Blancas RN Medications insulin regular human 8 Units 8 Units 8 Units Additives trace elements Zn-Cu-Mn-Se 1 mL 1 mL 1 mL ascorbic acid (vitamin C) 100 mg 100 mg 100 mg Vit D2-G6-P1-B5-B6 (B Complex) 1 mL 1 mL 1 [...] encounter: 53.3 kg (117 lb 9.6 oz). Moose Body Weight: 50 kg Usual Body Weight: [...] up while inpatient. JOSUE LORA RD Pager #[phone] * Davian Carolina MD - 04/08/2020 8:18 AM EST Surgical Oncology Inpatient Progress Note Patient Name: Linda MERAZ; Age: 6 1945; 74 y.o. Room/Bed: [address] [place] [address] Today's Date: 04/08/20 ID: Linda Abel is [...] Mccormack MD Surgical Oncology Service Team Pager #[phone] 04/08/20 8:18 AM Surgery Attending Addendum I [...] she does not meet criteria for a custodial facility. Jennifer Carolina MD 04/08/2020 10:36 AM [...] Body Fluid Culture, Aerobic & Anaerobic Bile [[id number]] Collected: 03/23/20 1346 Lab Status: Final result Specimen: Bile Updated: 03/27/20 1333 Body Fluid Culture, Aerobic [[id number]] Collected: 03/23/20 134 Lab Status: Final result Specimen: Bile Updated: 03/27/20 1333 Body Fluid Culture No growth Gram Stain -- Cytocentrifuge Gram Stain performed Neutrophils seen No microorganisms seen. Anaerobic Culture [[id number]] Collected: 03/23/20 1346 Lab Status: Final result Specimen: Bile Updated: 03/27/20 1117 Anaerobic Culture No anaerobic organisms isolated COVID-19 PCR [[id number]] Collected: 03/20/20 1057 Lab Status: Final result [...] diagnosis of COVID-19 is performed using the [employer] m SARS-CoV-2 Assay as authorized by the FDA Emergency Use Authorization (EUA). This EUA assay is intended for In-vitro Diagnostic (IVD) use with respiratory specimens such as nasopharyngeal swabs collected from individuals during the acute phase of infection. This assay is performed based on the instructions for use provided by [employer] and additional guidance provided by CDC and FDA. Testing is performed in the Clinical Genomics and Advanced Technology Laboratory within the Department of Pathology and Laboratory Medicine at [facility], certified under the Clinical Laboratory Improvement [...] fact sheets at the following FDA website: https://www.fda.gov/medical-devices/joekfpkcnyg-zbtomzu-2447-vxzyh-92-qtigwmeew- url-zcjbdytffyxtnd-ckxkyec-devices/jtnnw-sfhculpmlwa-dljj SARS-Cov-2 RNA Source REHABILITATION THERAPY TECHNICIAN Swab Diagnostic Studies: None new Inpatient Medications: [...] 3:07 PM EST OFFICE OF CARE MANAGEMENT [employer] Follow-up Note Alesha Casillas RN reviewed record and discussed patient with Care Team. Patient plan of care discussed in multidisciplinary rounds and assessment for continuing care and discharge needs. Diagnosis: IPMN (intraductal papillary mucinous neoplasm) LOS Hospital: 15 days INSURANCE: Payor: MEDICARE / Plan: MEDICARE PART A & B / Product Type: *No Product type* / SECONDARY INSURANCE: [facility] DECISION MAKER: Attempt Cardiopulmonary Resuscitation - [...] Current Referral in place: Demetrio Cervantes, STEPHANIE, [place], [facility] HomeHealth Transportation: Son will drive patient home via private vehicle when medically ready. Support: Son [employer] to follow with team and family to [...] was able to discuss plan with provider [phone]. Nutrition Support: TPN Medication Recent History (Show up to 3 orders; newest on the left. Changes between the two most recent orders are indicated.) Start date and time 04/07/2020 1800 04/06/2020 1800 04/03/2020 1800 TPN Adult [[id number]] TPN Adult [[id number]] TPN Adult [[id number]] Order Status Active Active Last Admin New Bag at 04/06/2020 1824 by Maria Esther Blancas RN New Bag at 04/05/2020 1820 by Mervin Grimes, RN Medications insulin regular human 8 Units 8 Units 6 Units Additives trace elements Zn-Cu-Mn-Se 1 mL 1 mL 1 mL ascorbic acid (vitamin C) 100 mg 100 mg -- Vit D8-D1-M0-B5-B6 (B Complex) 1 mL 1 mL 1 [...] encounter: 53.3 kg (117 lb 9.6 oz). Moose Body Weight: 50 kg Usual Body Weight: [...] weight loss. Protein-calorie Malnutrition: Not identified (Vadim, CHRIS J Parenteral Enteral Nutr. 2011; 36(3): 273-83) Nutrition to continue to follow up while inpatient. JOSUE LORA RD Pager #[phone] * Diego Blas MD - 04/07/2020 11:17 [...] complicated by abdominal pain requiring a dilaudid MEDICAL PHYSIOLOGIST that was weaned off on 03/28. She [...] asneeded. ??? fluticasone propionate (FLONASE) 50 mcg/actuation [place], Suspension 1 spray by Each Nare route [...] N/A 12/05/2019 Mammo Stereotactic Biopsy Left 12/05/2019 [facility] RAD MAMMOGRAPHY ??? MASTECTOMY Right with RT ??? PRO BX/REMV, LYMPH NODE, DEEP AXILL Left 12/20/2019 BIOPSY OR EXCISION OF LYMPH NODE(S), OPEN, DEEP AXILLARY NODE(S) (WRVU 6.43) performed by Susan Rivera MD at [facility] OSC ??? PRO COLONOSCOPY, DIAGNOSTIC 01/07/2014 COLONOSCOPY, DIAGNOSTIC performed by Izzy Johnson MD at [facility] ENDOSCOPY ??? PRO ENDOSCOPIC US EXAM, ESOPH N/A 11/15/2019 UPPER EUS- ENDOSCOPIC ULTRASOUND performed by Ralf Urrutia MD at [facility] ENDOSCOPY ??? PRO INTRAOP SENTINEL LYMPH ID W/DYE INJECTION Left 12/20/2019 INTRAOPERATIVE ID (MAPPING) SENTINEL LYMPH NODE,INCLUDES INJECTION (WRVU 2.5) performed by Susan Rivera MD at [facility] OSC ??? PRO MASTECTOMY, SIMPLE, COMPLETE Left 12/20/2019 MASTECTOMY, SIMPLE, COMPLETE (WRVU 15.85) performed by Susan Rivera MD at [facility] OSC ??? PRO OMENTAL FLAP, INTRA-ABDOMINAL 03/23/2020 @OMENTAL FLAP, INTRA-ABDOMINAL (WRVU 6.54) performed by Davian Carolina MD at [facility] MAIN OR ??? PRO UNLISTED PX PNCRS N/A 03/23/2020 ROBOTIC PANCREATECTOMY,WHIPPLE, PARTIAL GASTRECTOMY W/ PANCREATOJEJUNOSTOMY performed by Davian Carolina MD at [facility] MAIN OR ??? 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 DIEGO BLAS MD 04/08/2020 * Alesha Casillas RN - 04/07/2020 10:12 AM EST Based on discussions with the multi-disciplinary healthcare team, the patient would benefit from custodial level of care at discharge. ?? I have met with the patient to discuss discharge planning needs. I have provided the [facility], Office of Care Management letter from the Campus Police Officer pertaining to rehab referrals. I have also provided a letter describing our affiliations within the [facility] and educatedthem about their right to choose where referrals are. ?? Provided patient with [facility] Star Quality Rating for SNF, LTAC and/or [...] The patient have requested referrals to: 1. [facility] ([facility] [address] [place] [address] ?? PHONE: [phone] FAX: [phone] 2. [facility] ([facility]) ([facility]) [address] [place] [address] ?? PHONE: [phone] FAX: [phone] 3. [facility] ([facility]) ([facility]) [address] [place] [address] ?? PHONE: [phone] FAX: [phone] ?? Expected date of discharge: 04/10 Note routed to [employer] Installer who will communicate referrals to facilities and [...] Mccormack MD Surgical Oncology Service Team Pager #[phone] 04/07/20 7:42 AM * Davian Carolina MD - 04/06/2020 1:18 PM EST Surgical Oncology Inpatient Progress Note Patient Name: Linda MERAZ; Age: 6 1945; 74 y.o. Room/Bed: /-A Today's Date: 04/06/20 ID: Linda Abel is [...] Mccormack MD Surgical Oncology Service Team Pager #[phone] 04/06/20 1:18 PM Surgery attending addendum I [...] and I would not exactly call the [id number]. I called and spoke to her son Roberto Carlos who is down in [place] and I agree that at this point the best option for Maricruz given that she will need to be on TPN will be for her to go to a swing bed type facility either at [facility] or at [facility]. We had previously hoped that she would be able to go homeand no clear was working on VNA with [facility] for the TPN but basically given the remote location where she lives up in [place], [place] and the lack of support she essentially will not beable to go home with TPN and I think we need to start really considering the swing bed options as mentioned above at [facility] or at [facility]. This assumes all goes well with her NG tube out. We alsomay need to reengage medicine to help with her hypertension as this is been quite a refractory issue during this hospitalization and we need their help. Jennifer Carolina MD 04/06/2020 5:29 PM This note was created using ConjuGon voice recognition software. * Josue Lora RD [...] 1800 04/03/2020 1800 03/27/2020 1800 TPN Adult [[id number]] TPN Adult [[id number]] TPN Adult [[id number]] Order Status Active Active Discontinued Last Admin New Bag at 04/05/2020 1820 by Mervin Grimes, RN New Bag at 03/29/2020 1949 by Ness Cummings, RN Medications insulin regular human 8 Units 6 Units -- Additives trace elements Zn-Cu-Mn-Se 1 mL 1 mL 1 mL ascorbic acid (vitamin C) 100 mg -- -- Vit D6-G4-J0-B5-B6 (B Complex) 1 mL 1 mL 1 [...] encounter: 53.3 kg (117 lb 9.6 oz). Moose Body Weight: 50 kg Usual Body Weight: [...] up while inpatient. JOSUE LORA RD Pager #[phone] * Alesha Casillas RN - 04/06/2020 10:24 AM EST OFFICE OF CARE MANAGEMENT Land [employer]r Follow-up Note Alesha Casillas RN reviewed record and discussed patient with Care Team. Patient plan of care discussed in multidisciplinary rounds and assessment for continuing care and discharge needs. Diagnosis: IPMN (intraductal papillary mucinous neoplasm) LOS Hospital: 14 days INSURANCE: Payor: MEDICARE / Plan: MEDICARE PART A & B / Product Type: *No Product type* / SECONDARY INSURANCE: [facility] DECISION MAKER: Attempt Cardiopulmonary Resuscitation - Inpatient <no information> Patient continues to require hospitalization. Per team, patient requires inpatient status r/t dc N/G tube today. On sips and chips. Discharge date planned for 04/08 if medically ready. Current Referral in place: [facility] for RN. Added PT, OT. [facility] routed for TPN supportif needed. Transportation: Son will drive patient home via private vehicle when medically ready. Support: Son Land Measurer to follow with team and family to [...] Total Evaluation Minutes, Occupational Therapy: 45 Pager: [phone] PEPITO Kirk Plan updated by OT to [...] 1:15 I:C ratio ?? Katie Santamaria APRN [facility] Endocrinology Diabetes Management Pager [phone] * Davian Carolina MD - 04/06/2020 7:09 [...] Murillo MD Surgical Oncology Service Team Pager #[phone] 04/05/20 3:52 PM * Davian Carolina MD - 04/04/2020 10:14 AM EST Surgical Oncology Inpatient Progress Note Patient Name: Linda MERAZ; Age: 6 1945; 74 y.o. Room/Bed: [address] [place], [place] [address] Today's Date: 04/04/20 ID: Linda Abel is [...] continues to rise Hospital Course: POD 0 12: To OR [...] Murillo MD Surgical Oncology Service Team Pager #[phone] 04/04/20 10:14 AM Surgery Attending Addendum I [...] her son-Roberto Carlos who is down in [place] to chat about the plan going forward. [...] MD 04/04/2020 This note was created using ConjuGon voice recognition software. Jennifer Carolina MD * [...] time 04/03/2020 1800 03/27/2020 1800 TPN Adult [[id number]] TPN Adult [[id number]] Order Status Active Discontinued Last Admin New Bag at 03/29/2020 1949 by Ness Cummings, RN Medications insulin regular human 6 Units -- Additives trace elements Zn-Cu-Mn-Se 1 mL 1 mL Vit A6-P9-P4-B5-B6 (B Complex) 1 mL 1 mL zinc [...] encounter: 53.3 kg (117 lb 9.6 oz). Moose Body Weight: 50 kg Usual Body Weight: [...] up while inpatient. JOSUE LORA RD Pager #[phone] * Alesha Casillas RN - 04/03/2020 12:26 PM EST This patient requires infusion therapy for TPN. A letter describing our affiliations was reviewed with them and they were educated about their right to choose where referrals are placed. Request referral to [place], [place] for TPN or . Expected date of discharge: 04/07/2020. Patient will require teaching. Referral routed to the [employer]er for matching with agency/vendor and to provide [...] Total Evaluation Minutes, Occupational Therapy: 15 Pager: [phone] PEPITO Kirk Occupational Therapy Rehabilitation Department * [...] - 1:20 I:C ratio Katie Santamaria APRN [facility] Endocrinology Diabetes Management Pager [phone] 20 minutes of this 35 minute visit [...] MERAZ; Age: 6 1945; 74 y.o. Room/Bed: [address] [place] [address]-A Today's Date: 04/03/20 ID: Linda Abel is [...] Murillo MD Surgical Oncology Service Team Pager #[phone] 04/03/20 7:49 AM * Patricia Jordan, PT [...] at a later time. Olayinka BEYER Pager: [phone] * Josue Lora RD - 04/02/2020 12:44 [...] was able to discuss plan with provider [id number]. Nutrition Support: TPN Medication Recent History (Show up to 3 orders; newest on the left.) Start date and time 03/27/2020 1800 TPN Adult [[id number]] Order Status Discontinued Last Admin New Bag at 03/29/2020 1949 by Ness Cummings, LOS Additives trace elements Zn-Cu-Mn-Se 1 mL Vit E3-R9-Q6-B5-B6 (B Complex) 1 mL zinc sulfate 10 [...] encounter: 53.3 kg (117 lb 9.6 oz). Moose Body Weight: 50 kg Usual Body Weight: [...] up while inpatient. JOSUE LORA RD Pager #[phone] * Davian Carolina MD - 04/02/2020 8:15 AM EST Surgical Oncology Inpatient Progress Note Patient Name: Linda Abel DOB; Age: 6 1945; 74 y.o. Room/Bed: [address] [place] [address] Today's Date: 04/02/20 ID: Linda Abel is [...] status, Attempt Cardiopulmonary Resuscitation - Inpatient Signed: Edwrado Mccormack MD Surgical Oncology Service Team Pager #[phone] 04/02/20 10:58 AM Surgery Attending Addendum I [...] minimal contrast passing downthe efferent limb. See medical sales representative image below. I placed an [...] [facility] - 04/01/2020 3:28 PM EST Renae Encounter Note Patient Name: Linda Abel : [id number] MR#: [id number] Admit Date: 03/23/2020 5:51 AM Hospital Day 9 days Narrative: Follow-up visit for continued assessment and support. Patient was not available for visit and I will visit an other time. Assessment: Intervention and Outcome: Follow-up: Time in Direct Care: [facility] 04/01/2020 * Alesha Casillas RN - 04/01/2020 11:17 AM EST OFFICE OF CARE MANAGEMENT [employer] Follow-up Note Alesha Casillas RN reviewed record and discussed patient with Care Team. Patient plan of care discussed in multidisciplinary rounds and assessment for continuing care and discharge needs. Diagnosis: IPMN (intraductal papillary mucinous neoplasm) LOS Hospital: 9 days INSURANCE: Payor: MEDICARE / Plan: MEDICARE PART A & B / Product Type: *No Product type* / SECONDARY INSURANCE: [facility] DECISION MAKER: Attempt Cardiopulmonary Resuscitation - Inpatient <no information> Patient continues to require hospitalization. Per team, patient requires inpatient status r/t nausea, Ct scan, rechecking labs. Discharge date planned for if medically ready. / Current Referral in place: [facility] for RN Transportation: Son will drive patient home via private vehicle when medically ready. Support: Son Land Measurer to follow with team and family to assist with discharge needs when patient ready for discharge. Alesha Casillas RN Case Management pgr [phone] * Davian Carolina MD - 04/01/2020 9:13 AM EST Surgical Oncology Inpatient Progress Note Patient Name: Linda Abel ; Age: 6 1945; 74 y.o. Room/Bed: [facility] Today's Date: 04/01/20 ID: Linda Abel is [...] Mccormack MD Surgical Oncology Service Team Pager #[phone] 04/01/20 9:13 AM Surgery attending addendum I [...] 9:34 AM This note was created using ConjuGon voice recognition software. * Gina Greer RN - 03/31/2020 2:58 PM EST Diabetes Clinical Nurse Specialist Met with Mrs. Abel to discuss diabetes prevention. Pt was found to have pre-diabetes (HbA1c 5.8%) and is now S/P [place] on 03/23/20. Encouraged pt to eat a [...] She had a regular diet, tolerated well. Credit Control Manager to bedside to speak w/ pt. Adequate [...] Total Evaluation Minutes, Occupational Therapy: 23 Pager: [phone] PEPITO Kirk Occupational Therapy Rehabilitation Department * [...] nutrient intake and support healing ?? Added Tajik yogurt with meals and reviewed foods for [...] encounter: 53.3 kg (117 lb 9.6 oz). Moose Body Weight: 50 kg Usual Body Weight: [...] regime. 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 Time IN / OUT: 6487-2217 Total Evaluation Minutes, Physical Therapy: 16(TEF 1) Lisa Villa PTA Pager: [phone] Physical Therapy Inpatient Rehabilitation Department * Davian Carolina MD - 03/31/2020 7:26 AM EST Surgical Oncology Inpatient Progress Note Patient Name: Linda Abel DOB; Age: 6 1945; 74 y.o. Room/Bed: 207/207-A Today's Date: 03/31/20 ID: Linda Abel is [...] (117 lb 9.6 oz) Labs: Recent Labs 12/15/20 0636 03/30/20 0120 03/29/20 0120 WBC 9.0 [...] Amylase: 03/24: 26 12: 22 12: 15 1211: 327 12: 12 [...] Mccormack MD Surgical Oncology Service Team Pager #[phone] 03/31/20 7:23 AM Surgery attending addendum I [...] 2:36 PM This note was created using ConjuGon voice recognition software. * Elma Zacarias MD [...] today. TPN d/c'd today. Consult with Endocrine. site with scant serosanguineous output.. Voiding adequate [...] 11:26 AM EST OFFICE OF CARE MANAGEMENT Land [employer] Follow-up Note Alesha Casillas RN reviewed record and discussed patient with Care Team. Patient plan of care discussed in multidisciplinary rounds and assessment for continuing care and discharge needs. Diagnosis: IPMN (intraductal papillary mucinous neoplasm) LOS Hospital: 7 days INSURANCE: Payor: MEDICARE / Plan: MEDICARE PART A & B / Product Type: *No Product type* / SECONDARY INSURANCE: [facility] DECISION MAKER: Attempt Cardiopulmonary Resuscitation - Inpatient <no information> Patient continues to require hospitalization. Per team, patient requires inpatient status r/t stopping TPN, diabetes teaching needed and Medicine consult for HTN management. Discharge date planned for 04/01 if medically ready. Current Referral in place: [facility] for RN. Transportation: Son will drive patient home via private vehicle when medically ready. Support: Son Land Measurer to follow with team and family to assist with discharge needs when patient ready for discharge. Alesha Casillas RN Case Management pgr [phone] * Davian Carolina MD - 03/30/2020 7:05 AM EST Surgical Oncology Inpatient Progress Note Patient Name: Linda MERAZ; Age: 6 1945; 74 y.o. Room/Bed: [address] [place] [address] Today's Date: 03/30/20 ID: Linda Abel is [...] Mccormack MD Surgical Oncology Service Team Pager #[phone] 03/30/20 7:05 AM Surgery Attending Addendum I [...] morning. Denies pain, managed with scheduled medications. MEDICAL PHYSIOLOGIST d/c'd. Diet increased to Regular diet, tolerating [...] LEFT basilar focal atelectasis Assessment / Plan: Lnida Abel is a 74 y.o. female with PMH breast ca, HTN, pancreatic IPMN, 6Days Post-Op s/p robotic Whipple. Doing well this mornig. +flatus, +BM. Continue TPN today. 1/2 portion regular diet Add HCTZ for HTN (historical med for her); PRNs for >160mmHg Discontinue MEDICAL PHYSIOLOGIST - transition to PO pain meds. NEURO: [...] Kang MD Surgical Oncology Service Team Pager #[phone] 12/13/20 9:57 AM Surgery Attending Addendum I have [...] 12:33 PM This note was created using ConjuGon voice recognition software. * Raj Kang MD [...] Kang MD Surgical Oncology Service Team Pager #[phone] 03/28/20 10:02 AM * Olayinka Ojeda OTA [...] Total Evaluation Minutes, Occupational Therapy: 30 Pager: [phone] PEPITO Kirk Occupational Therapy Rehabilitation Department * Davian Carolina MD - 03/27/2020 12:38 PM EST Surgical Oncology Inpatient Progress Note Patient Name: Linda MERAZ; Age: 6 1945; 74 y.o. Room/Bed: [address] [place] [address]A Today's Date: 03/27/20 ID: Linda Abel is [...] 0 03/23: To OR for robotic Whipple, REOL post-op. [...] YE MD Surgical Oncology Service Team Pager #[phone] 03/27/20 12:38 PM Surgery Attending Addendum I [...] date and time 03/27/2020 1800 TPN Adult [[id number]] Order Status Active Additives trace elements Zn-Cu-Mn-Se 1 mL Vit W4-Q0-G7-B5-B6 (B Complex) 1 mL zinc sulfate 10 [...] of this encounter: 54.9 kg (121 lb). Moose Body Weight: 50 kg Usual Body Weight: [...] up while inpatient. JOSUE LORA RD Pager #[phone] * Marisa Lance - 03/27/2020 10:20 AM [...] please obtain updated weight. Marisa Lance Pager: [phone] * Alesha Casillas RN - 03/26/2020 12:43 PM EST OFFICE OF CARE MANAGEMENT Land [employer]r Follow-up Note Alesha Casillas RN reviewed record and discussed patient with Care Team. Patient plan of care discussed in multidisciplinary rounds and assessment for continuing care and discharge needs. Diagnosis: IPMN (intraductal papillary mucinous neoplasm) LOS Hospital: 3 days INSURANCE: Payor: MEDICARE / Plan: MEDICARE PART A & B / Product Type: *No Product type* / SECONDARY INSURANCE: [facility] DECISION MAKER: Attempt Cardiopulmonary Resuscitation - Inpatient <no information> Patient continues to require hospitalization. Per team, patient requires inpatient status r/t needing a CTA today. LFT increasing. Discharge date planned for 03/30 if medically ready. Current Referral in place: [facility] for RN Transportation: Son will drive patient home via private vehicle when medically ready. Support: Son Land Measurer to follow with team and family to assist with discharge needs when patient ready for discharge. Alesha Casillas RN Case Management pgr [phone] * Paty Kenney MD - 03/26/2020 10:00 AM EST Surgical Oncology Inpatient Progress Note Patient Name: Linda Abel ; Age: 6 1945; 74 y.o. Room/Bed: 207/[facility] Today's Date: 03/26/20 ID: Linda Abel is [...] 54.9 kg (121 lb) Labs: Recent Labs 03/26/2014403/25/2015403/24/20 0828 03/23/20 1830 WBC 9.4 13.9* 16.3* [...] Kenney MD Surgical Oncology Service Team Pager #[phone] 12/10/20 10:00 AM * Maria Esther Blancas RN [...] in the hallway. Pain well controlled with MEDICAL PHYSIOLOGIST. Not passing gas, no BM, adequate urine [...] assessment: [current deficits]: 74 female s/p robotic thomas current risk factors include: PICC, MEDICAL PHYSIOLOGIST, acute pain, recent surgery, tubes/drains, and generalizedweakness. 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 Vital Signs: SpO2: 95% on 2L, [...] (P) 15 TEF PATRICIA JORDAN, PT Pager: [phone] Physical Therapy Inpatient Rehabilitation Department * Meera [...] N/A 12/05/2019 Mammo Stereotactic Biopsy Left 12/05/2019 [facility] RAD MAMMOGRAPHY ??? MASTECTOMY Right with RT ??? PRO BX/REMV, LYMPH NODE, DEEP AXILL Left 12/20/2019 BIOPSY OR EXCISION OF LYMPH NODE(S), OPEN, DEEP AXILLARY NODE(S) (WRVU 6.43) performed by Susan Rivera MD at [facility] OSC ??? PRO COLONOSCOPY, DIAGNOSTIC 01/07/2014 COLONOSCOPY, DIAGNOSTIC performed by Izzy Johnson MD at [facility] ENDOSCOPY ??? PRO ENDOSCOPIC US EXAM, ESOPH N/A 11/15/2019 UPPER EUS- ENDOSCOPIC ULTRASOUND performed by Ralf Urrutia MD at [facility] ENDOSCOPY ??? PRO INTRAOP SENTINEL LYMPH ID W/DYE INJECTION Left 12/20/2019 INTRAOPERATIVE ID (MAPPING) SENTINEL LYMPH NODE,INCLUDES INJECTION (WRVU 2.5) performed by Susan Rivera MD at [facility] OSC ??? PRO MASTECTOMY, SIMPLE, COMPLETE Left 12/20/2019 MASTECTOMY, SIMPLE, COMPLETE (WRVU 15.85) performed by Susan Rivera MD at [facility] OSC Social History: Patient lives Alone, [...] day. 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 Precautions/Special Considerations: Fall risk, PICC, NG tube [...] 59.67% limited in ADL performance per the [facility]. Patient is well below her baseline level [...] and measurable assessment of functional outcome. Pager: [phone] Meera Salinas OT 03/25/2020 Occupational Therapy Rehabilitation Department * Alice Ye R - 03/25/2020 1:33 PM EST Surgical Oncology Inpatient Progress Note Patient Name: Linda MERAZ; Age: 6 1945; 74 y.o. Room[facility]Bed: [facility] Today's Date: 03/25/20 ID: Linda Abel is [...] to 110s overnight Hospital Course: POD 0 127: to OR for robotic Whipple, ROEL post-op. [...] YE MD Surgical Oncology Service Team Pager #[phone] 03/25/20 1:33 PM * Beatriz Singh RN [...] emphysema, continue to encourage appropriate usage of MEDICAL PHYSIOLOGIST. Would be good to get OOB today. [...] YE MD Surgical Oncology Service Team Pager #[phone] 03/24/20 9:51 AM Surgery attending addendum I [...] that is improved when she pushes her MEDICAL PHYSIOLOGIST button. O: Temp: [36.3 ??C (97.3 ??F)-37 [...] Result Value Ref Range Surgical Pathology Report [id number] Location: OR; OR09; A The signing pathologist has (i) examined the relevant preparation(s) for the specimen(s) and (ii) rendered or confirmed the diagnosis(es). . Frozen Section FROZEN SECTION DIAGNOSIS _BFS1,2 Pancreatic neck margin: Negative for tumor 03/23/20 13:12 Electronically signed by: Hiro Burton MD Verified: 03/23/2020 Pathologist Performed at: -[facility] Dept. of Pathology, [place], [place] This intraoperative consultation should be interpreted [...] I saw Maricruz this am in the [place] area. She is here with her son- [...] to the planned procedure. Hand Hygiene: The de ionizer operator did perform hand hygiene prior to line insertion. Catheter type: PICC Lot number: [id number] Procedure Technique: Skin was prepped with chlorhexidine. [...] to the planned procedure. Hand Hygiene: The de ionizer operator did perform hand hygiene prior to line insertion. Catheter type: PICC Lot number: [id number] Procedure Technique: Skin was prepped with chlorhexidine. [...] OUTCOME EVALUATION: * Plan of Care - mAado Carolina RN - 04/10/2020 1:43 AM EST [...] independence encouraged;BADL personal objects within reach -- Andrea Fall Risk History of Falling -- 0 [...] in bed, resting??between care.?? Note:1614, bp 179/103, md aware, 2x labetalol per md orders, hydralazine [...] Urrutia MD - 04/02/2020 4:04 PM EST [facility] Operative Note Patient Name: Linda Abel : [id number] MR#: [id number] Case Date: 04/02/2020 Surgeon: Surgeon(s) and Role: [...] mastectomy, main duct IPMN s/p Whipple with [id number] 10 days ago. GI consulted for worsening [...] file Gets together: Not on file Attends shinto service: Not on file Active member of [...] mastectomy, main duct IPMN s/p Whipple with [id number] 10 days ago. GI consulted for worsening [...] M.D. Fellow in Gastroenterology and Hepatology Pager #[phone] 04/02/2020 Associated attestation - Ralf Urrutia MD [...] complicated by abdominal pain requiring a dilaudid MEDICAL PHYSIOLOGIST that was weaned off on 03/28. She [...] Diagnosis Date ??? Basal cell carcinoma 2009 [facility]-back ??? Breast cancer Meds: No current [...] Inhaler ??? fluticasone propionate (FLONASE) 50 mcg/actuation [place], Suspension 1 spray daily. ??? Creon 24,000-76,000 [...] N/A 12/05/2019 Mammo Stereotactic Biopsy Left 12/05/2019 [facility] RAD MAMMOGRAPHY ??? MASTECTOMY Right with RT ??? PRO BX/REMV, LYMPH NODE, DEEP AXILL Left 12/20/2019 BIOPSY OR EXCISION OF LYMPH NODE(S), OPEN, DEEP AXILLARY NODE(S) (WRVU 6.43) performed by Susan Rivera MD at [facility] OSC ??? PRO COLONOSCOPY, DIAGNOSTIC 01/07/2014 COLONOSCOPY, DIAGNOSTIC performed by Izzy Johnson MD at [facility] ENDOSCOPY ??? PRO ENDOSCOPIC US EXAM, ESOPH N/A 11/15/2019 UPPER EUS- ENDOSCOPIC ULTRASOUND performed by Ralf Urrutia MD at [facility] ENDOSCOPY ??? PRO INTRAOP SENTINEL LYMPH ID W/DYE INJECTION Left 12/20/2019 INTRAOPERATIVE ID (MAPPING) SENTINEL LYMPH NODE,INCLUDES INJECTION (WRVU 2.5) performed by Susan Rivera MD at [facility] OSC ??? PRO MASTECTOMY, SIMPLE, COMPLETE Left 12/20/2019 MASTECTOMY, SIMPLE, COMPLETE (WRVU 15.85) performed by Susan Rivera MD at [facility] ??? PRO OMENTAL FLAP, INTRA-ABDOMINAL 03/23/2020 @OMENTAL FLAP, INTRA-ABDOMINAL (WRVU 6.54) performed by Davian Carolina MD at [facility] MAIN OR ??? PRO UNLISTED PX PNCRS N/A 03/23/2020 ROBOTIC PANCREATECTOMY,WHIPPLE, PARTIAL GASTRECTOMY W/ PANCREATOJEJUNOSTOMY performed by Davian Carolina MD at [facility] MAIN OR Family History: Siblings: Sister [...] Recent Labs 03/31/20 0636 03/30/20 0120 03/29/20 012 WBC 9.0 10.4* 6.8 HGB 11.4* 12.0 [...] MD Internal Medicine, PGY3 BETHANY Pager # [phone] Associated attestation - Nataly Leggett MD - [...] Had a medium size hard formed BM. Nazia UOP. Will continue to monitor. ?? PLAN [...] low normal I have asked Gina Greer MERCHANDISE DISPLAYER CDE to meet with her to provide [...] complicated by abdominal pain requiring a dilaudid MEDICAL PHYSIOLOGIST that was weaned off on 03/28. She [...] Inhaler ??? fluticasone propionate (FLONASE) 50 mcg/actuation [place], Suspension 1 spray daily. ??? Creon 24,000-76,000 [...] N/A 12/05/2019 Mammo Stereotactic Biopsy Left 12/05/2019 [facility] RAD MAMMOGRAPHY ??? MASTECTOMY Right with RT ??? PRO BX/REMV, LYMPH NODE, DEEP AXILL Left 12/20/2019 BIOPSY OR EXCISION OF LYMPH NODE(S), OPEN, DEEP AXILLARY NODE(S) (WRVU 6.43) performed by Susan Rivera MD at [facility] ??? PRO COLONOSCOPY, DIAGNOSTIC 01/07/2014 COLONOSCOPY, DIAGNOSTIC performed by Izzy Johnson MD at [facility] ENDOSCOPY ??? PRO ENDOSCOPIC US EXAM, ESOPH N/A 11/15/2019 UPPER EUS- ENDOSCOPIC ULTRASOUND performed by Ralf Urrutia MD at [facility] ENDOSCOPY ??? PRO INTRAOP SENTINEL LYMPH ID W/DYE INJECTION Left 12/20/2019 INTRAOPERATIVE ID (MAPPING) SENTINEL LYMPH NODE,INCLUDES INJECTION (WRVU 2.5) performed by Susan Rivera MD at [facility] ??? PRO MASTECTOMY, SIMPLE, COMPLETE Left 12/20/2019 MASTECTOMY, SIMPLE, COMPLETE (WRVU 15.85) performed by Susan Rivera MD at [facility] ??? PRO OMENTAL FLAP, INTRA-ABDOMINAL 03/23/2020 @OMENTAL FLAP, INTRA-ABDOMINAL (WRVU 6.54) performed by Davian Carolina MD at [facility] MAIN OR ??? PRO UNLISTED PX PNCRS N/A 03/23/2020 ROBOTIC PANCREATECTOMY,WHIPPLE, PARTIAL GASTRECTOMY W/ PANCREATOJEJUNOSTOMY performed by Davian Carolina MD at [facility] MAIN OR Family History: Siblings: Sister with [...] MD Internal Medicine, PGY3 BETHANY Pager # [phone] Associated attestation - Nataly Leggett MD - [...] pain 2-3/10 pain today, managed well with MEDICAL PHYSIOLOGIST. Pt tolerating clears w/o nausea or emesis. AUOP, no BM this shift. Pt bps 160-170s/90-100s overnight, md aware, given 2x labetalol per md orders. Pt resting between care. ?? PLAN MOVING FORWARD: Manage pain; wean MEDICAL PHYSIOLOGIST Monitor I&Os Encourage OOB, ambulation ?? INDIVIDUALIZED [...] reporting 3/10 pain today, managed well with MEDICAL PHYSIOLOGIST. NGT and KHRIS drain removed this morning [...] PLAN MOVING FORWARD: ?? Manage pain; wean MEDICAL PHYSIOLOGIST OOB activities; ROBF ?? INDIVIDUALIZED FALL PREVENTION [...] OUTCOME SUMMARY: ?? Pain well controlled with MEDICAL PHYSIOLOGIST this shift. VSS.Tolerating sips &??chips diet, no [...] fall risk factors per assessment: [current deficits]:?PICC, MEDICAL PHYSIOLOGIST, Pain, recent surgery, tubes/drains, generalized weakness ? [...] patient;nursing * Plan of Care - Wendy Riuz RN - 03/27/2020 4:23 PM EST OUTCOME EVALUATION NOTE: OUTCOME SUMMARY: ?? Pt denied pain this shift, reporting good management with MEDICAL PHYSIOLOGIST. NGT clamped this morning by MD Carolina~1000, [...] PLAN MOVING FORWARD: ?? Manage pain; wean MEDICAL PHYSIOLOGIST OOB activities; ROBF ?? INDIVIDUALIZED FALL PREVENTION [...] OUTCOME SUMMARY: ?? Pain well controlled with MEDICAL PHYSIOLOGIST this shift. VSS.Tolerating sips &??chips diet, no [...] fall risk factors per assessment: [current deficits]:?PICC, MEDICAL PHYSIOLOGIST, Pain, recent surgery, tubes/drains, generalized weakness ? [...] minimal pain this shift, managed well with MEDICAL PHYSIOLOGIST. Pt went to CT scan this morning, [...] PLAN MOVING FORWARD: ?? Manage pain; wean MEDICAL PHYSIOLOGIST OOB activities; ROBF Wean O2 ?? INDIVIDUALIZED [...] NOTE: OUTCOME SUMMARY: Pain well controlled with MEDICAL PHYSIOLOGIST this shift. VSS.Tolerating sips & chips diet, [...] risk factors per assessment: [current deficits]: PICC, MEDICAL PHYSIOLOGIST, Pain, recent surgery, tubes/drains, generalized weakness ?? [...] NOTE: OUTCOME SUMMARY: Pain well controlled with MEDICAL PHYSIOLOGIST. Patient tachycardic in the 110's this shift, [...] risk factors per assessment: [current deficits]: PICC, MEDICAL PHYSIOLOGIST, Pain, recent surgery, tubes/drains, generalized weakness Assistance [...] draining CYU adequately, -flatus/-BM, periorbital swelling noted, MEDICAL PHYSIOLOGIST controlling pain, down for PICC line d/t inadequate IV access/inability to draw labs d/t no IV/BP on R arm, double lumen PICC in place, C/D/I, MIVF, worked with PT/OT, pt resting comfortably between nursing care, bed in lowest position, call light within reach PLAN MOVING FORWARD: Increase mobilization Pain control/wean MEDICAL PHYSIOLOGIST Increase diet DC planning INDIVIDUALIZED FALL PREVENTION [...] EST Problem: Health Knowledge, Opportunity to Enhance (Adult,NICU,Macy,Obstetrics,Pediatric) Goal: Knowledgeable about Health Subject/Topic Patient will demonstrate the desired outcomes by discharge/transition of care. Outcome: Outcome (s) achieved Date Met: 03/24/20 Peripherally Inserted Central Catheter (PICC) Teaching Sheet Peripherally inserted central catheters (zmjl-hd-cvnn) (PICC) are used when you need IV [...] midline catheter? PICC lines are used for assisted treatments. PICC lines may be used for [...] can be set up via the nurse Land Measurer to help you. What are possible complications [...] Efficacy, Safety, Use, and Administration of [employer], [employer] 2005 * Plan of Care - [...] N/A 12/05/2019 Mammo Stereotactic Biopsy Left 12/05/2019 [facility] RAD MAMMOGRAPHY ??? MASTECTOMY Right with RT ??? PRO BX/REMV, LYMPH NODE, DEEP AXILL Left 12/20/2019 BIOPSY OR EXCISION OF LYMPH NODE(S), OPEN, DEEP AXILLARY NODE(S) (WRVU 6.43) performed by Susan Rivera MD at [facility] ??? PRO COLONOSCOPY, DIAGNOSTIC 01/07/2014 COLONOSCOPY, DIAGNOSTIC performed by Izzy Johnson MD at [facility] ENDOSCOPY ??? PRO ENDOSCOPIC US EXAM, ESOPH N/A 11/15/2019 UPPER EUS- ENDOSCOPIC ULTRASOUND performed by Ralf Urrutia MD at [facility] ENDOSCOPY ??? PRO INTRAOP SENTINEL LYMPH ID W/DYE INJECTION Left 12/20/2019 INTRAOPERATIVE ID (MAPPING) SENTINEL LYMPH NODE,INCLUDES INJECTION (WRVU 2.5) performed by Susan Rivera MD at [facility] ??? PRO MASTECTOMY, SIMPLE, COMPLETE Left 12/20/2019 MASTECTOMY, SIMPLE, COMPLETE (WRVU 15.85) performed by Susan Rivera MD at [facility] Social History: Pt lives alone in a multi level home with 3 steps to enter. 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 Pain: Pushed MEDICAL PHYSIOLOGIST x 1, abdominal discomfort, Vital Signs: SpO2: [...] pt and answered all questions, spoke with discharge coordinator re: private room when possible, as pt [...] Therapy: (P) 25 PATRICIA JORDAN, PT Pager: [phone] Physical Therapy Inpatient Rehabilitation Department * Initial [...] Diagnosis Date ??? Basal cell carcinoma 2010 [facility]-back ??? Breast cancer Hospitalizations Within the Past 30 Days: None Anticipated Length Of Stay (If known): 03/30 Admission order confirmed/dated: Davian Carolina MD 02/24/20 1111 Current Decision-Making Capacity: Self, A&Ox3, Full Capacity Advance Care Planning: Attempt Cardiopulmonary Resuscitation - Inpatient <no information> If AD's have not been completed Roberto Carlos would be surrogate decision maker per [place] surrogate decision making law. (Only good for 90 days) Any patient receiving care at [facility] must abide by [place] law. The hierarchy for surrogate decision making [...] (i) The agent with financial power of consumer attorney or a conservator appointed in accordance [...] and a full flight to bedroom [address] [facility] [address] [facility] [phone] Social & Family Supports/Community Resources: DALJIT Umanzor Extended Emergency Contact Information Primary Emergency Contact: [place] [address] [employer] Relation: Child Secondary Emergency Contact: [place] [address] [address] [facility] Mobile Relation: Son/[facility] History: Denies Other Pertinent/Service Specific Information: No Health/Prescription Coverage: Primary Insurance: MEDICARE Payor: MEDICARE / Plan: MEDICARE PART A & B / Product Type: *No Product type* / Secondary Insurance: [facility] Prescription Coverage: Medicare D Preferred Pharmacy: [facility] - [place], [place] - [address] [place] [id number] [facility] - [address] [facility] [address] Primary Care Provider: Zeny James APRN [phone] Patient/Caregiver Goals of Treatment: feel better Potential Needs for Transition of Care: Rehab/SNF: n/a Home Health: The patient has been provided a list of Home Health Agencies placed. Provided patient with [facility] Star Quality Rating for Home care. Patient requests referral to [facility]. For RN PHONE: [phone] FAX: [phone]. Expected date of discharge: 03/30. Referral routed to the [employer] Installer for matching with agency/vendor and to provide any required information. DME: n/a Community Resources: No Transportation: Son Dialysis: n/a Anticipated Barriers to Discharge/Special Considerations: None Assessment: [facility] for RN routed and orders pended. Patient [...] transition of care planning. Alesha Casillas RN global transportation manager Pager: [phone] * Plan of Care - Ness Cummings RN - 03/24/2020 1:24 AM EST OUTCOME EVALUATION NOTE: OUTCOME SUMMARY: Patient arrived from PACU to room 210A at 2223 . A&O x4. VSS. Pain 09/24, managed with MEDICAL PHYSIOLOGIST and scheduled IV Tylenol. Frequent reminders given to use MEDICAL PHYSIOLOGIST. Remains on 3L NC over night. Subcutaneous [...] per assessment: [current deficits]: Recent surgery, pain, MEDICAL PHYSIOLOGIST, infusing PIV, general weakness Assistance [level of [...] Carolina MD - 03/23/2020 4:56 PM EST [facility] Operative Note Patient Name: Linda Abel : [id number] MR#: [id number] Case Date: 03/23/2020 Surgeon: Surgeon(s) and Role: * Davian Carolina MD - Primary Registered Nurse Commercial Producer: Whitney Rangel RN Preoperative diagnosis: IPMN Postoperative diagnosis: IPMN Procedure(s) (LRB): ROBOTIC PANCREATECTOMY,WHIPPLE, PARTIAL GASTRECTOMY W/ PANCREATOJEJUNOSTOMY (N/A) MODIFIER ROBOT,STEPHANIE XI (N/A) @OMENTAL FLAP, INTRA-ABDOMINAL (WRVU 6.54) [...] margin, pancreatic neck margin- FROZEN Blue-vascular groove\ [place]-SMA [id number] IPMN Head of pancreas, antrum, duodenum excision YES, Please perform frozen section No 03/23/2020 12:38 PM Number of tissue samples (in container) 1 Time specimen removed from patient: 12:33 PM SPECIMEN TO PATHOLOGY Gallbladder and omentum [id number] IPMN Gallbladder and omentum excision No 03/23/2020 12:44 PM Time specimen removed from patient: 12:43 PM Number of tissue samples (in container) 1 Biospecimen to store? No PATHOLOGY ORDER UPDATE Gallbladder only 03/23/2020 12:51 PM Additional information: Correction Enter requested changes: Gallbladder eD-H Order Id number [id number] PATHOLOGY ORDER UPDATE Head of pancreas, antrum, duodenum & OMENTUM 03/23/2020 12:51 PM Additional information: Additional Info Enter requested changes: omentum eD-H Order Id number [id number] Drains: Drain/Device Site 12/20/19 1301 Left breast [...] Next, we placed the 15 mm laparoscopic licensed loan officer assistant port in the right mid rectus [...] the robotic portion of the operation. The IPextremei Xi patient cart was brought in and [...] The proximal jejunum was divided using the Emma stapler (white load). The specimen side of [...] was divided using 2 firings of the Emma stapler (green load and a blue load). [...] lateral extent exposing both the vein of Anderson superiorly and the first jejunal branch inferiorly. [...] then ligated and divided the vein of Anderson across metal clips at its insertion with [...] trocars and extended the 15 mm lap licensed loan officer assistant port for approximately an additional 3 [...] and extracted through the 15 mm laparoscopic licensed loan officer assistant port via a Endo Catch specimen [...] complete we turned our attention to the fvjs-oz-uygbrw stitches. An tiny enterotomy was created immediately [...] the reconstruction complete we introduced a 19 Malay Darius drain via the most right lateral [...] new suction and cautery at closure: No Utvsqevfa-xtihqkoax-ybrsdhdaxy abdominal cavity wash: No Mrljhulqg-mckyvpvhp-hibpzsdsug wound wash: No Attestation: Case Date: 03/23/2020 I performed this procedure without the involvement of a resident. DAVIAN CAROLINA MD 03/23/2020 documented in this encounter Plan of Treatment Upcoming Encounters Date Type Department Care Team (Late st Contact Info) Description 01/01/2025 2:00 PM EDT Office Visit Hematology/Oncology at [address] [phone] Jeffery Sanz MD [facility] [address] [place] [address] Mary Nails APRN [address] [place] [address] [place] [address] 01/01/2025 2:30 PM EDT Infusion Hematology Oncology at [address] [phone] 01/14/2025 11:00 AM EDT Laboratory Appointment Lab 3L [facility] [place] [phone] 01/14/2025 1:[address] [place] [address] Davian Carolina MD [facility] [place] [address] 01/14/2025 2:00 PM EDT Office [place] [address] Davian Carolina MD [facility] [place] [address] Scheduled Referrals Name Type Priority Associated Diagnoses [...] 1:30 AM EST DIFFERENTIAL, AUTOMATED Routine 04/06/20 20 1:30 AM EST HC CBC,PLT & AUTO [...] 5:17 PM EST Upper GI Endoscopy, Diagnostic ([id number]) 04/02/2020 3:17 PM EST Post Whipple UPPER [...] EDT) Prealbumin 21 20 - 40 mg/dL [facility] Comment: Prealbumin levels are generally lower in the pediatric population; adult concentrations are usually attained near puberty. Blood 09/28/2020 11:5 2 AM EDT 09/28/2020 12:17 PM EDT Narrative Resulting Agency Comment Spec In Lab Anjelica Jordan APRN CHEMISTRY ORDERA BLES [facility] [place] [address] * (ABNORMAL) Comprehensive metabolic panel (non-fasting) (09/28/2020 11:52 AM EDT) Glucose 127 65 - 199 mg/dL [facility] Comment:Diabetes: >=200 mg/d L plus symptoms Blood Urea Nitrogen 16 8 - 18 mg/dL [facility] Creatinine 0.65(L) 0.70 - 1.20 mg/dL [facility] Sodium 136 135 - 145 mmol/L [facility] Potassium 4.0 3.5 - 5.0 mmol/L [facility] Comment: Please note: ??Patients with WBC >100,000 may have falsely elevated Potassium levels. ??For accurate Potassium quantification in these patients send serum separator tube (gold top) for subsequent determinations. ??Contact the Clinical Chemistry Laboratory if there are any questions. Chloride 101 98 - 107 mmol/L [facility] Carbon Dioxide 25 22 - 31 mmol/L [facility] Anion Gap 10 5 - 15 mmol/L [facility] Calcium 9.0 8.5 - 10.5 mg/dL [facility] Protein, Total 6.5 6.1 - 8.0 gm/dL [facility] Albumin 4.1 3.2 - 5.2 gm/dL [facility] Aspartate Aminotransferase 28 0 - 30 unit/L [facility] Alanine Aminotransferase 27 0 - 30 unit/L [facility] Alkaline Phosphatase 148(H) 35 - 105 unit/L [facility] Bilirubin, Total 0.3 0.2 - 1.3 mg/dL [facility] Est Glomerular Filtration Rate 88 >=60 mL/min/1. 73 m?? [facility] Comment: This patient? s [...] APRN CHEMISTRY ORDERA BLES Performing Organization Address [facility]/ZIP Co de Phone Number [facility] [place] [address] * POCT Glucose (04/11/2020 12:02 PM EST) Glucose, POC 150 65 - 199 mg/dL [facility] Comment: Supplemental ranges: <140 mg/dL before meals <180 mg/dL all other times of the day Blood specimen (specimen) 04/11/2020 12:02 PM EST 04/11/2020 12:02 PM EST Davian Carolina MD POINT OF CARE TEST ORDERABLES Performing Organization Address [facility] Co de Phone Number [facility] [place] [address] * POCT Glucose (04/11/2020 7:43 AM EST) Glucose, POC 162 65 - 199 mg/dL [facility] Comment: Supplemental ranges: <140 mg/dL before meals <180 mg/dL all other times of the day Blood specimen (specimen) 04/11/2020 7:43 AM EST 04/11/2020 7:43 AM EST Davian Carolina MD POINT OF CARE TEST ORDERABLES Performing Organization Address [facility] Co de Phone Number [facility] [place] [address] * (ABNORMAL) Differential, Automated (04/11/2020 5:35 AM EST) Neutrophil % 75.6 % [facility] Neutrophil Absolute 9.98(H) 1.70 - 6.10 x10(3)/ L [facility] Lymph % 9.9 % [facility] Lymphocytes Abs 1.3 0.9 - 3.2 x10(3)/[facility] Monocyte % 7.6 % [facility] Monocyte Abs 1.0(H) 0.3 - 0.9 x10(3)/[facility] Eos % 3.9 % [facility] Eosinophils Abs 0.5(H) 0.0 - 0.4 x10(3)/[facility] Basophil % 0.7 % [facility] Baso Absolute 0.1 0.0 - 0.1 x10(3)/[facility] Immature Gran % 2.30 % [facility] Comment: Immature granulocytes(IG's)percentage and absolute count will include metamyelocytes, myelocytes, and promyelocytes. Blood smears from CBCs yielding IG's will be scanned manually for concordance. If this scan disagrees with the automated IG or if promyelocytes are noted, a manual differential will be performed. Immature Gran Absolute 0.31(H) 0.00 - 0.04 x10(3)/[facility] Blood specimen (specimen) 04/11/2020 5:35 AM EST 04/11/2020 5:43 AM EST Narrative Resulting Agency Comment Spec In Lab Anjelica Jordan APRN HEMATOLOGY ORDER MAGAN [facility] [place] [address] * (ABNORMAL) Hemogram (04/11/2020 5:35 AM EST) White Blood Cell 13.2(H) 4.0 - 9.5 x10(3)/[facility] Red Blood Cell 3.22(L) 4.00 - 5.21 x10(6)/[facility] Hemoglobin 9.7(L) 11.7 - 15.5 gm/dL [facility] Hematocrit 29.4(L) 35.7 - 45.8 % [facility] Mean Cell Volume 91.3 82.6 - 94.4 fL [facility] Mean Cell Hemoglobin 30.1 27.1 - 32.0 pg [facility] Mean Cell Hemoglobin Concentration 33.0 31.7 - 35.0 gm/dL [facility] Platelet 371(H) 145 - 357 x10(3)/mc L [facility] RDW Standard Deviation 44.1 37.0 - 46.0 fL [facility] RDW coefficient of variation 13.2 11.5 - 14.1 % [facility] Mean Platelet Volume 10.1 7.6 - 12.9 fL [facility] NRBC% auto 0.0 % [facility] NRBC Absolute 0.000 0.000 - 0.000 x10(3)/mc L [facility] Blood specimen (specimen) 04/11/2020 5:35 AM EST 04/11/2020 5:43 AM EST Narrative Resulting Agency Comment Spec In Lab Anjelica Jordan APRN HEMATOLOGY ORDER MAGAN Performing Organization Address City/[facility] Co de Phone Number [facility] [place] [address] * Phosphorus (04/11/2020 5:35 AM EST) Phosphorus 3.4 2.5 - 4.5 mg/dL [facility] Blood specimen (specimen) 04/11/2020 5:35 AM EST 04/11/2020 5:43 AM EST Narrative Resulting Agency Comment Spec In Lab Anjelica Jordan SALES ACCOUNT DIRECTOR CHEMISTRY ORDERA BLES Performing Organization Address [facility] Co de Phone Number [facility] [place] [address] * Magnesium (04/11/2020 5:35 AM EST) Magnesium 0.69 0.69 - 1.07 mmol/L [facility] Blood specimen (specimen) 04/11/2020 5:35 AM EST 04/11/2020 5:43 AM EST Narrative Resulting Agency Comment Spec In Lab Anjelica Lissa Nikki GRANDA CHEMISTRY ORDERA BLES [facility] [place] [address] * (ABNORMAL) Basic Metabolic Panel (non-fasting) (04/11/2020 5:35 AM EST) Glucose 165 65 - 199 mg/dL [facility] Comment:Diabetes: >=200 mg/d L plus symptoms Blood Urea Nitrogen 15 8 - 18 mg/dL [facility] Creatinine 0.34(L) 0.70 - 1.20 mg/dL [facility] Sodium 130(L) 135 - 145 mmol/L [facility] Potassium 4.3 3.5 - 5.0 mmol/L [facility] Comment: Please note: ??Patients with WBC >100,000 may have falsely elevated Potassium levels. ??For accurate Potassium quantification in these patients send serum separator tube (gold top) for subsequent determinations. ??Contact the Clinical Chemistry Laboratory if there are any questions. Chloride 99 98 - 107 mmol/L [facility] Carbon Dioxide 25 22 - 31 mmol/L [facility] Anion Gap 6 5 - 15 mmol/L [facility] Calcium 7.7(L) 8.5 - 10.5 mg/dL [facility] Est Glomerular Filtration Rate 109 >=60 mL/min/1. 73 m?? [facility] Comment: This patient? s [...] APRN CHEMISTRY ORDERA BLES Performing Organization Address City/[facility]/ZIP Co de Phone Number [facility] [place] [address] * POCT Glucose (04/11/2020 3:37 AM EST) Glucose, POC 184 65 - 199 mg/dL [facility] Comment: Supplemental ranges: <140 mg/dL before meals <180 mg/dL all other times of the day Blood specimen (specimen) 04/11/2020 3:37 AM EST 04/11/2020 3:37 AM EST Davian Carolina MD POINT OF CARE TEST ORDERABLES Performing Organization Address [facility] Co de Phone Number [facility] [place] [address] * POCT Glucose (04/11/2020 12:32 AM EST) Glucose, POC 181 65 - 199 mg/dL [facility] Comment: Supplemental ranges: <140 mg/dL before meals <180 mg/dL all other times of the day Blood specimen (specimen) 04/11/2020 12:32 AM EST 04/11/2020 12:32 AM EST Davian Carolina MD POINT OF CARE TEST ORDERABLES Performing Organization Address City/[facility]/ZIP Co de Phone Number [facility] [place] [address] * POCT Glucose (04/10/2020 8:55 PM EST) Glucose, POC 174 65 - 199 mg/dL [facility] Comment: Supplemental ranges: <140 mg/dL before meals <180 mg/dL all other times of the day Blood specimen (specimen) 04/10/2020 8:55 PM EST 04/10/2020 8:55 PM EST Davian Carolina MD POINT OF CARE TEST ORDERABLES [facility] [place] [address] * POCT Glucose (04/10/2020 5:32 PM EST) Glucose, POC 168 65 - 199 mg/dL [facility] Comment: Supplemental ranges: <140 mg/dL before meals <180 mg/dL all other times of the day Blood specimen (specimen) 04/10/2020 5:32 PM EST 04/10/2020 5:32 PM EST Davian Carolina MD POINT OF CARE TEST ORDERABLES Performing Organization Address City/[facility]/ZIP Co de Phone Number [facility] [place] [address] * POCT Glucose (04/10/2020 1:22 PM EST) Glucose, POC 167 65 - 199 mg/dL [facility] Comment: Supplemental ranges: <140 mg/dL before meals <180 mg/dL all other times of the day Blood specimen (specimen) 04/10/2020 1:22 PM EST 04/10/2020 1:22 PM EST Davian Carolina MD POINT OF CARE TEST ORDERABLES [facility] [place] [address] * XR PICC Placement Over 5 Years [...] by: Maria Esther Gaines MD, [facility] ([phone]), at 04/10/2020 12:18 PM Narrative 04/10/2020 12:18 [...] by: Maria Esther Gaines MD, [facility]([phone]), at 04/10/2020 12:18 PM Davian Carolina MD [...] to the planned procedure. Hand Hygiene: The de ionizer operator did perform hand hygiene prior to line insertion. Catheter type: PICC Lot number: [id number] Procedure Technique: Skin was prepped with chlorhexidine. [...] (ABNORMAL) POCT Glucose (04/10/2020 8:08 AM EST) [facility] Glucose, POC 220(H) 65 - 199 mg/dL [facility] Comment: Supplemental ranges: <140 mg/dL before meals <180 mg/dL all other times of the day Blood specimen (specimen) 04/10/2020 8:08 AM EST 04/10/2020 8:08 AM EST Davian Carolina MD POINT OF CARE TEST ORDERABLES Performing Organization Address City/State/[facility] Co de Phone Number [facility] [place] [address] * (ABNORMAL) Differential, Automated (04/10/2020 3:14 AM EST) [facility] Neutrophil % 64.4 % [facility] Neutrophil Absolute 8.46(H) 1.70 - 6.10 x10(3)/mc L [facility] Lymph % 14.2 % [facility] Lymphocytes Abs 1.9 0.9 - 3.2 x10(3)/mc L [facility] Monocyte % 9.8 % [facility] Monocyte Abs 1.3(H) 0.3 - 0.9 x10(3)/mc L [facility] Eos % 7.2 % [facility] Eosinophils Abs 0.9(H) 0.0 - 0.4 x10(3)/ L [facility] Basophil % 0.8 % [facility] Baso Absolute 0.1 0.0 - 0.1 x10(3)/ L [facility] Immature Gran % 3.60 % [facility] Comment: Immature granulocytes(IG's)percentage and absolute count will include metamyelocytes, myelocytes, and promyelocytes. Blood smears from CBCs yielding IG's will be scanned manually for concordance. If this scan disagrees with the automated IG or if promyelocytes are noted, a manual differential will be performed. Immature Gran Absolute 0.47(H) 0.00 - 0.04 x10(3)/ L [facility] Blood specimen (specimen) 04/10/2020 3:14 AM EST 04/10/2020 3:21 AM EST Narrative Resulting Agency Comment Spec In Lab Anjelica Jordan APRN HEMATOLOGY ORDER MAGAN [facility] [place] [address] * (ABNORMAL) Hemogram (04/10/2020 3:14 AM EST) White Blood Cell 13.1(H) 4.0 - 9.5 x10(3)/ L [facility] Red Blood Cell 3.17(L) 4.00 - 5.21 x10(6)/mc L [facility] Hemoglobin 9.6(L) 11.7 - 15.5 gm/dL [facility] Hematocrit 28.6(L) 35.7 - 45.8 % [facility] Mean Cell Volume 90.2 82.6 - 94.4 fL [facility] Mean Cell Hemoglobin 30.3 27.1 - 32.0 pg [facility] Mean Cell Hemoglobin Concentration 33.6 31.7 - 35.0 gm/dL [facility] Platelet 429(H) 145 - 357 x10(3)/mc L [facility] RDW Standard Deviation 42.9 37.0 - 46.0 fL [facility] RDW coefficient of variation 13.0 11.5 - 14.1 % [facility] Mean Platelet Volume 10.2 7.6 - 12.9 fL [facility] NRBC% auto 0.0 % [facility] NRBC Absolute 0.000 0.000 - 0.000 x10(3)/mc L [facility] Blood specimen (specimen) 04/10/2020 3:14 AM EST 04/10/2020 3:21 AM EST Narrative Resulting Agency Comment Spec In Lab Anjelica Jordan APRN HEMATOLOGY ORDER MAGAN Performing Organization Address [facility] de Phone Number [facility] [place] [address] * Phosphorus (04/10/2020 3:14 AM EST) Phosphorus 3.4 2.5 - 4.5 mg/dL [facility] Blood specimen (specimen) 04/10/2020 3:14 AM EST 04/10/2020 3:21 AM EST Narrative Resulting Agency Comment Spec In Lab Anjelica Jordan APRN CHEMISTRY ORDERA BLES Performing Organization Address [facility] de Phone Number [facility] [place] [address] * (ABNORMAL) Magnesium (04/10/2020 3:14 AM EST) Magnesium 0.64(L) 0.69 - 1.07 mmol/L [facility] Blood specimen (specimen) 04/10/2020 3:14 AM EST 04/10/2020 3:21 AM EST Narrative Resulting Agency Comment Spec In Lab Anjelica Jordan APRN CHEMISTRY ORDERA BLES [facility] [place] [address] * (ABNORMAL) Basic Metabolic Panel (non-fasting) (04/10/2020 3:14 AM EST) Glucose 156 65 - 199 mg/dL [facility] Comment:Diabetes: >=200 mg/d L plus symptoms Blood Urea Nitrogen 16 8 - 18 mg/dL [facility] Creatinine 0.35(L) 0.70 - 1.20 mg/dL [facility] Sodium 131(L) 135 - 145 mmol/L [facility] Potassium 3.9 3.5 - 5.0 mmol/L [facility] Comment: Please note: ??Patients with WBC >100,000 may have falsely elevated Potassium levels. ??For accurate Potassium quantification in these patients send serum separator tube (gold top) for subsequent determinations. ??Contact the Clinical Chemistry Laboratory if there are any questions. Chloride 100 98 - 107 mmol/L [facility] Carbon Dioxide 24 22 - 31 mmol/L [facility] Anion Gap 7 5 - 15 mmol/L [facility] Calcium 7.6(L) 8.5 - 10.5 mg/dL [facility] Est Glomerular Filtration Rate 108 >=60 mL/min/1. 73 m?? [facility] Comment: This patient? s [...] APRN CHEMISTRY ORDERA BLES Performing Organization Address [facility] de Phone Number [facility] [place] [address] * POCT Glucose (04/10/2020 3:09 AM EST) Glucose, POC 155 65 - 199 mg/dL [facility] Comment: Supplemental ranges: <140 mg/dL before meals <180 mg/dL all other times of the day Blood specimen (specimen) 04/10/2020 3:09 AM EST 04/10/2020 3:09 AM EST Davian Carolina MD POINT OF CARE TEST ORDERABLES Performing Organization Address [facility] Phone Number [facility] [place] [address] * POCT Glucose (04/10/2020 12:45 AM EST) Glucose, POC 179 65 - 199 mg/dL [facility] Comment: Supplemental ranges: <140 mg/dL before meals <180 mg/dL all other times of the day Blood specimen (specimen) 04/10/2020 12:45 AM EST 04/10/2020 12:45 AM EST Davian Carolina MD POINT OF CARE TEST ORDERABLES Performing Organization Address [facility] Phone Number [facility] [place] [address] * POCT Glucose (04/09/2020 8:11 PM EST) Glucose, POC 184 65 - 199 mg/dL [facility] Comment: Supplemental ranges: <140 mg/dL before meals <180 mg/dL all other times of the day Blood specimen (specimen) 04/09/2020 8:11 PM EST 04/09/2020 8:11 PM EST Davian Carolina MD POINT OF CARE TEST ORDERABLES Performing Organization Address [facility] Co de Phone Number [facility] [place] [address] * POCT Glucose (04/09/2020 4:59 PM EST) Glucose, POC 167 65 - 199 mg/dL [facility] Comment: Supplemental ranges: <140 mg/dL before meals <180 mg/dL all other times of the day Blood specimen (specimen) 04/09/2020 4:59 PM EST 04/09/2020 4:59 PM EST Davian Carolina MD POINT OF CARE TEST ORDERABLES Performing Organization Address [facility] Co de Phone Number [facility] [place] [address] * POCT Glucose (04/09/2020 1:16 PM EST) Glucose, POC 180 65 - 199 mg/dL [facility] Comment: Supplemental ranges: <140 mg/dL before meals <180 mg/dL all other times of the day Blood specimen (specimen) 04/09/2020 1:16 PM EST 04/09/2020 1:16 PM EST Davian Carolina MD POINT OF CARE TEST ORDERABLES Performing Organization Address [facility] Co de Phone Number [facility] [place] [address] * POCT Glucose (04/09/2020 8:05 AM EST) Glucose, POC 181 65 - 199 mg/dL [facility] Comment: Supplemental ranges: <140 mg/dL before meals <180 mg/dL all other times of the day Blood specimen (specimen) 04/09/2020 8:05 AM EST 04/09/2020 8:05 AM EST Davian Carolina MD POINT OF CARE TEST ORDERABLES Performing Organization Address City/[facility]/ZIP Co de Phone Number [facility] [place] [address] * POCT Glucose (04/09/2020 5:18 AM EST) Glucose, POC 145 65 - 199 mg/dL [facility] Comment: Supplemental ranges: <140 mg/dL before meals <180 mg/dL all other times of the day Blood specimen (specimen) 04/09/2020 5:18 AM EST 04/09/2020 5:18 AM EST Davian Carolina MD POINT OF CARE TEST ORDERABLES Performing Organization Address [facility] Co de Phone Number [facility] [place] [address] * POCT Glucose (04/09/2020 12:52 AM EST) [facility] Glucose, POC 169 65 - 199 mg/dL [facility] Comment: Supplemental ranges: <140 mg/dL before meals <180 mg/dL all other times of the day Blood specimen (specimen) 04/09/2020 12:52 AM EST 04/09/2020 12:52 AM EST Davian Carolina MD POINT OF CARE TEST ORDERABLES [facility] [place] [address] * (ABNORMAL) Differential, Automated (04/09/2020 12:30 AM EST) [facility] Neutrophil % 62.3 % [facility] Neutrophil Absolute 8.42(H) 1.70 - 6.10 x10(3)/mc L [facility] Lymph % 13.7 % [facility] Lymphocytes Abs 1.8 0.9 - 3.2 x10(3)/mc L [facility] Monocyte % 11.0 % [facility] Monocyte Abs 1.5(H) 0.3 - 0.9 x10(3)/mc L [facility] Eos % 7.2 % [facility] Eosinophils Abs 1.0(H) 0.0 - 0.4 x10(3)/ L [facility] Basophil % 0.9 % [facility] Baso Absolute 0.1 0.0 - 0.1 x10(3)/ L [facility] Immature Gran % 4.90 % [facility] Comment: Immature granulocytes(IG's)percentage and absolute count will include metamyelocytes, myelocytes, and promyelocytes. Blood smears from CBCs yielding IG's will be scanned manually for concordance. If this scan disagrees with the automated IG or if promyelocytes are noted, a manual differential will be performed. Immature Gran Absolute 0.66(H) 0.00 - 0.04 x10(3)/ L [facility] Blood specimen (specimen) 04/09/2020 12:30 AM EST 04/09/2020 1:16 AM EST Narrative Resulting Agency Comment Spec In Lab Anjelica Jordan APRN HEMATOLOGY ORDER MAGAN [facility] [place] [address] * (ABNORMAL) Hemogram (04/09/2020 12:30 AM EST) White Blood Cell 13.5(H) 4.0 - 9.5 x10(3)/ L [facility] Red Blood Cell 3.38(L) 4.00 - 5.21 x10(6)/mc L [facility] Hemoglobin 10.1(L) 11.7 - 15.5 gm/dL [facility] Hematocrit 30.4(L) 35.7 - 45.8 % [facility] Mean Cell Volume 89.9 82.6 - 94.4 fL [facility] Mean Cell Hemoglobin 29.9 27.1 - 32.0 pg [facility] Mean Cell Hemoglobin Concentration 33.2 31.7 - 35.0 gm/dL [facility] Platelet 426(H) 145 - 357 x10(3)/mc L [facility] RDW Standard Deviation 43.6 37.0 - 46.0 fL [facility] RDW coefficient of variation 13.1 11.5 - 14.1 % [facility] Mean Platelet Volume 9.9 7.6 - 12.9 fL [facility] NRBC% auto 0.0 % [facility] NRBC Absolute 0.000 0.000 - 0.000 x10(3)/mc L [facility] Blood specimen (specimen) 04/09/2020 12:30 AM EST 04/09/2020 1:16 AM EST Narrative Resulting Agency Comment Spec In Lab Anjelica Jordan APRN HEMATOLOGY ORDER MAGAN Performing Organization Address [facility] de Phone Number [facility] [place] [address] * Phosphorus (04/09/2020 12:30 AM EST) Phosphorus 2.7 2.5 - 4.5 mg/dL [facility] Blood specimen (specimen) 04/09/2020 12:30 AM EST 04/09/2020 1:16 AM EST Narrative Resulting Agency Comment Spec In Lab Anjelica Jordan APRN CHEMISTRY ORDERA BLES Performing Organization Address City/[facility] Co de Phone Number [facility] [place] [address] * Magnesium (04/09/2020 12:30 AM EST) Magnesium 0.78 0.69 - 1.07 mmol/L [facility] Blood specimen (specimen) 04/09/2020 12:30 AM EST 04/09/2020 1:16 AM EST Narrative Resulting Agency Comment Spec In Lab Anjelica Jordan SALES ACCOUNT DIRECTOR CHEMISTRY ORDERA BLES [facility] [place] [address] * (ABNORMAL) Basic Metabolic Panel (non-fasting) (04/09/2020 12:30 AM EST) Glucose 157 65 - 199 mg/dL [facility] Comment:Diabetes: >=200 mg/d L plus symptoms Blood Urea Nitrogen 15 8 - 18 mg/dL [facility] Creatinine 0.31(L) 0.70 - 1.20 mg/dL [facility] Sodium 133(L) 135 - 145 mmol/L [facility] Potassium 3.9 3.5 - 5.0 mmol/L [facility] Comment: Please note: ??Patients with WBC >100,000 may have falsely elevated Potassium levels. ??For accurate Potassium quantification in these patients send serum separator tube (gold top) for subsequent determinations. ??Contact the Clinical Chemistry Laboratory if there are any questions. Chloride 102 98 - 107 mmol/L [facility] Carbon Dioxide 23 22 - 31 mmol/L [facility] Anion Gap 8 5 - 15 mmol/L [facility] Calcium 7.7(L) 8.5 - 10.5 mg/dL [facility] Est Glomerular Filtration Rate 112 >=60 mL/min/1. 73 m?? [facility] Comment: This patient? s [...] APRN CHEMISTRY ORDERA BLES Performing Organization Address [facility] Co de Phone Number [facility] [place] [address] * POCT Glucose (04/08/2020 9:03 PM EST) Glucose, POC 169 65 - 199 mg/dL [facility] Comment: Supplemental ranges: <140 mg/dL before meals <180 mg/dL all other times of the day Blood specimen (specimen) 04/08/2020 9:03 PM EST 04/08/2020 9:03 PM EST Davian Carolina MD POINT OF CARE TEST ORDERABLES Performing Organization Address [facility] Phone Number [facility] [place] [address] * C. Difficile Screen (04/08/2020 5:52 PM EST) [facility] C Diff Interp Negative Negative GRACE COTTAGE [...] - GEN ERAL ORDERABLES Performing Organization Address [facility] Co de Phone Number [facility] [place] [address] * POCT Glucose (04/08/2020 3:42 PM EST) Glucose, POC 127 65 - 199 mg/dL [facility] Comment: Supplemental ranges: <140 mg/dL before meals <180 mg/dL all other times of the day Blood specimen (specimen) 04/08/2020 3:42 PM EST 04/08/2020 3:42 PM EST Davian Carolina MD POINT OF CARE TEST ORDERABLES Performing Organization Address [facility] de Phone Number [facility] [place] [address] * POCT Glucose (04/08/2020 12:31 PM EST) Glucose, POC 167 65 - 199 mg/dL [facility] Comment: Supplemental ranges: <140 mg/dL before meals <180 mg/dL all other times of the day Blood specimen (specimen) 04/08/2020 12:31 PM EST 04/08/2020 12:31 PM EST Davian Carolina MD POINT OF CARE TEST ORDERABLES Performing Organization Address [facility] Phone Number [facility] [place] [address] * POCT Glucose (04/08/2020 7:28 AM EST) Glucose, POC 199 65 - 199 mg/dL [facility] Comment: Supplemental ranges: <140 mg/dL before meals <180 mg/dL all other times of the day Blood specimen (specimen) 04/08/2020 7:28 AM EST 04/08/2020 7:28 AM EST Davian Carolina MD POINT OF CARE TEST ORDERABLES Performing Organization Address [facility] de Phone Number [facility] [place] [address] * POCT Glucose (04/08/2020 3:25 AM EST) Glucose, POC 146 65 - 199 mg/dL [facility] Comment: Supplemental ranges: <140 mg/dL before meals <180 mg/dL all other times of the day Blood specimen (specimen) 04/08/2020 3:25 AM EST 04/08/2020 3:25 AM EST Davian Carolina MD POINT OF CARE TEST ORDERABLES Performing Organization Address City/[facility]/[place] [address] * (ABNORMAL) Differential, Automated (04/08/2020 12:30 AM EST) Neutrophil % 69.8 % [facility] Neutrophil Absolute 11.23(H) 1.70 - 6.10 x10(3)/ L [facility] Lymph % 10.5 % [facility] Lymphocytes Abs 1.7 0.9 - 3.2 x10(3)/[facility] Monocyte % 11.2 % [facility] Monocyte Abs 1.8(H) 0.3 - 0.9 x10(3)/[facility] Eos % 4.0 % [facility] Eosinophils Abs 0.6(H) 0.0 - 0.4 x10(3)/[facility] Basophil % 0.6 % [facility] Baso Absolute 0.1 0.0 - 0.1 x10(3)/[facility] Immature Gran % 3.90 % [facility] Comment: Immature granulocytes(IG's)percentage and absolute count will include metamyelocytes, myelocytes, and promyelocytes. Blood smears from CBCs yielding IG's will be scanned manually for concordance. If this scan disagrees with the automated IG or if promyelocytes are noted, a manual differential will be performed. Immature Gran Absolute 0.63(H) 0.00 - 0.04 x10(3)/ L [facility] Blood specimen (specimen) 04/08/2020 12:30 AM EST 04/08/2020 12:38 AM EST Narrative Resulting Agency Comment Spec In Lab Anjelica Jordan APRN HEMATOLOGY ORDER MAGAN Performing Organization Address City/[facility]/[place] [address] * (ABNORMAL) Hemogram (04/08/2020 12:30 AM EST) White Blood Cell 16.1(H) 4.0 - 9.5 x10(3)/ L [facility] Red Blood Cell 3.24(L) 4.00 - 5.21 x10(6)/ L [facility] Hemoglobin 9.8(L) 11.7 - 15.5 gm/dL [facility] Hematocrit 28.6(L) 35.7 - 45.8 % [facility] Mean Cell Volume 88.3 82.6 - 94.4 fL [facility] Mean Cell Hemoglobin 30.2 27.1 - 32.0 pg [facility] Mean Cell Hemoglobin Concentration 34.3 31.7 - 35.0 gm/dL [facility] Platelet 477(H) 145 - 357 x10(3)/[facility] RDW Standard Deviation 43.0 37.0 - 46.0 fL [facility] RDW coefficient of variation 13.2 11.5 - 14.1 % [facility] Mean Platelet Volume 10.0 7.6 - 12.9 fL [facility] NRBC% auto 0.0 % [facility] NRBC Absolute 0.000 0.000 - 0.000 x10(3)/[facility] Blood specimen (specimen) 04/08/2020 12:30 AM EST 04/08/2020 12:38 AM EST Narrative Resulting Agency Comment Spec In Lab Anjelica Jordan APRN HEMATOLOGY ORDER MAGAN [facility] [place] [address] * Phosphorus (04/08/2020 12:30 AM EST) Phosphorus 3.1 2.5 - 4.5 mg/dL [facility] Blood specimen (specimen) 04/08/2020 12:30 AM EST 04/08/2020 12:38 AM EST Narrative Resulting Agency Comment Spec In Lab Anjelica Lissa Nikki SALES ACCOUNT DIRECTOR CHEMISTRY ORDERA BLES Performing Organization Address [facility]/ZIP Co de Phone Number [facility] [place] [address] * Magnesium (04/08/2020 12:30 AM EST) Magnesium 0.69 0.69 - 1.07 mmol/L [facility] Blood specimen (specimen) 04/08/2020 12:30 AM EST 04/08/2020 12:38 AM EST Narrative Resulting Agency Comment Spec In Lab Anjelica Lissa Nikki SALES ACCOUNT DIRECTOR CHEMISTRY ORDERA BLES Performing Organization Address [facility] de Phone Number [facility] [place] [address] * (ABNORMAL) Basic Metabolic Panel (non-fasting) (04/08/2020 12:30 AM EST) Glucose 147 65 - 199 mg/dL [facility] Comment:Diabetes: >=200 mg/d L plus symptoms Blood Urea Nitrogen 15 8 - 18 mg/dL [facility] Creatinine 0.29(L) 0.70 - 1.20 mg/dL [facility] Sodium 132(L) 135 - 145 mmol/L [facility] Potassium 3.5 3.5 - 5.0 mmol/L [facility] Comment: Please note: ??Patients with WBC >100,000 may have falsely elevated Potassium levels. ??For accurate Potassium quantification in these patients send serum separator tube (gold top) for subsequent determinations. ??Contact the Clinical Chemistry Laboratory if there are any questions. Chloride 101 98 - 107 mmol/L [facility] Carbon Dioxide 24 22 - 31 mmol/L [facility] Anion Gap 7 5 - 15 mmol/L [facility] Calcium 7.7(L) 8.5 - 10.5 mg/dL [facility] Est Glomerular Filtration Rate 115 >=60 mL/min/1. 73 m?? [facility] Comment: This patient? s [...] APRN CHEMISTRY ORDERA BLES Performing Organization Address City/[facility]/ZIP Co de Phone Number [facility] [place] [address] * POCT Glucose (04/08/2020 12:06 AM EST) Glucose, POC 152 65 - 199 mg/dL [facility] Comment: Supplemental ranges: <140 mg/dL before meals <180 mg/dL all other times of the day Blood specimen (specimen) 04/08/2020 12:06 AM EST 04/08/2020 12:06 AM EST Davian Carolina MD POINT OF CARE TEST ORDERABLES [facility] [place] [address] * POCT Glucose (04/07/2020 7:42 PM EST) Glucose, POC 137 65 - 199 mg/dL [facility] Comment: Supplemental ranges: <140 mg/dL before meals <180 mg/dL all other times of the day Blood specimen (specimen) 04/07/2020 7:42 PM EST 04/07/2020 7:42 PM EST Davian Carolina MD POINT OF CARE TEST ORDERABLES Performing Organization Address [facility] Co de Phone Number [facility] [place] [address] * POCT Glucose (04/07/2020 3:46 PM EST) Glucose, POC 148 65 - 199 mg/dL [facility] Comment: Supplemental ranges: <140 mg/dL before meals <180 mg/dL all other times of the day Blood specimen (specimen) 04/07/2020 3:46 PM EST 04/07/2020 3:46 PM EST Davian Carolina MD POINT OF CARE TEST ORDERABLES Performing Organization Address [facility] Co de Phone Number [facility] [place] [address] * POCT Glucose (04/07/2020 11:18 AM EST) Glucose, POC 154 65 - 199 mg/dL [facility] Comment: Supplemental ranges: <140 mg/dL before meals <180 mg/dL all other times of the day Blood specimen (specimen) 04/07/2020 11:18 AM EST 04/07/2020 11:18 AM EST Davian Carolina MD POINT OF CARE TEST ORDERABLES Performing Organization Address City/[facility] Co de Phone Number [facility] [place] [address] * POCT Glucose (04/07/2020 7:32 AM EST) Glucose, POC 138 65 - 199 mg/dL [facility] Comment: Supplemental ranges: <140 mg/dL before meals <180 mg/dL all other times of the day Blood specimen (specimen) 04/07/2020 7:32 AM EST 04/07/2020 7:32 AM EST Davian Carolina MD POINT OF CARE TEST ORDERABLES Performing Organization Address City/[facility]/ZIP Co de Phone Number [facility] [place] [address] * (ABNORMAL) Differential, Automated (04/07/2020 3:50 AM EST) Neutrophil % 66.9 % [facility] Neutrophil Absolute 9.01(H) 1.70 - 6.10 x10(3)/ L [facility] Lymph % 10.8 % [facility] Lymphocytes Abs 1.5 0.9 - 3.2 x10(3)/[facility] Monocyte % 12.5 % [facility] Monocyte Abs 1.7(H) 0.3 - 0.9 x10(3)/[facility] Eos % 4.8 % [facility] Eosinophils Abs 0.6(H) 0.0 - 0.4 x10(3)/[facility] Basophil % 0.9 % [facility] Baso Absolute 0.1 0.0 - 0.1 x10(3)/[facility] Immature Gran % 4.10 % [facility] Comment: Immature granulocytes(IG's)percentage and absolute count will include metamyelocytes, myelocytes, and promyelocytes. Blood smears from CBCs yielding IG's will be scanned manually for concordance. If this scan disagrees with the automated IG or if promyelocytes are noted, a manual differential will be performed. Immature Gran Absolute 0.55(H) 0.00 - 0.04 x10(3)/ L [facility] Blood specimen (specimen) 04/07/2020 3:50 AM EST 04/07/2020 4:01 AM EST Narrative Resulting Agency Comment Spec In Lab Anjelica Jordan APRN HEMATOLOGY ORDER MAGAN Performing Organization Address City/[facility]/ZIP Co de Phone Number [facility] [place] [address] * (ABNORMAL) Hemogram (04/07/2020 3:50 AM EST) White Blood Cell 13.5(H) 4.0 - 9.5 x10(3)/mc L [facility] Red Blood Cell 3.14(L) 4.00 - 5.21 x10(6)/mc L [facility] Hemoglobin 9.6(L) 11.7 - 15.5 gm/dL [facility] Hematocrit 28.1(L) 35.7 - 45.8 % [facility] Mean Cell Volume 89.5 82.6 - 94.4 fL [facility] Mean Cell Hemoglobin 30.6 27.1 - 32.0 pg [facility] Mean Cell Hemoglobin Concentration 34.2 31.7 - 35.0 gm/dL [facility] Platelet 453(H) 145 - 357 x10(3)/mc L [facility] RDW Standard Deviation 44.5 37.0 - 46.0 fL [facility] RDW coefficient of variation 13.5 11.5 - 14.1 % [facility] Mean Platelet Volume 9.7 7.6 - 12.9 fL [facility] NRBC% auto 0.0 % [facility] NRBC Absolute 0.000 0.000 - 0.000 x10(3)/ L [facility] Blood specimen (specimen) 04/07/2020 3:50 AM EST 04/07/2020 4:01 AM EST Narrative Resulting Agency Comment Spec In Lab Anjelica Jordan APRN HEMATOLOGY ORDER MAGAN [facility] [place] [address] * Phosphorus (04/07/2020 3:50 AM EST) Pathologist [facility] Phosphorus 3.3 2.5 - 4.5 mg/dL [facility] Blood specimen (specimen) 04/07/2020 3:50 AM EST 04/07/2020 4:01 AM EST Narrative Resulting Agency Comment Spec In Lab Anjelica Lissa Nikki SALES ACCOUNT DIRECTOR CHEMISTRY ORDERA BLES Performing Organization Address [facility] Co de Phone Number [facility] [place] [address] * Magnesium (04/07/2020 3:50 AM EST) Magnesium 0.82 0.69 - 1.07 mmol/L [facility] Blood specimen (specimen) 04/07/2020 3:50 AM EST 04/07/2020 4:01 AM EST Narrative Resulting Agency Comment Spec In Lab Anjelica Lissa Nikki SALES ACCOUNT DIRECTOR CHEMISTRY ORDERA BLES Performing Organization Address [facility] de Phone Number [facility] [place] [address] * (ABNORMAL) Basic Metabolic Panel (non-fasting) (04/07/2020 3:50 AM EST) Glucose 166 65 - 199 mg/dL [facility] Comment:Diabetes: >=200 mg/d L plus symptoms Blood Urea Nitrogen 16 8 - 18 mg/dL [facility] Creatinine 0.34(L) 0.70 - 1.20 mg/dL [facility] Sodium 134(L) 135 - 145 mmol/L [facility] Potassium 3.6 3.5 - 5.0 mmol/L [facility] Comment: Please note: ??Patients with WBC >100,000 may have falsely elevated Potassium levels. ??For accurate Potassium quantification in these patients send serum separator tube (gold top) for subsequent determinations. ??Contact the Clinical Chemistry Laboratory if there are any questions. Chloride 101 98 - 107 mmol/L [facility] Carbon Dioxide 24 22 - 31 mmol/L [facility] Anion Gap 9 5 - 15 mmol/L [facility] Calcium 7.7(L) 8.5 - 10.5 mg/dL [facility] Est Glomerular Filtration Rate 109 >=60 mL/min/1. 73 m?? [facility] Comment: This patient? s [...] APRN CHEMISTRY ORDERA BLES Performing Organization Address City/[facility]/ZIP Co de Phone Number [facility] [place] [address] * POCT Glucose (04/07/2020 3:41 AM EST) Glucose, POC 160 65 - 199 mg/dL [facility] Comment: Supplemental ranges: <140 mg/dL before meals <180 mg/dL all other times of the day Blood specimen (specimen) 04/07/2020 3:41 AM EST 04/07/2020 3:41 AM EST Davian Carolina MD POINT OF CARE TEST ORDERABLES Performing Organization Address City/[facility]/ZIP Co de Phone Number [facility] [place] [address] * POCT Glucose (04/06/2020 11:51 PM EST) Glucose, POC 159 65 - 199 mg/dL [facility] Comment: Supplemental ranges: <140 mg/dL before meals <180 mg/dL all other times of the day Blood specimen (specimen) 04/06/2020 11:51 PM EST 04/06/2020 11:51 PM EST Davian Carolina MD POINT OF CARE TEST ORDERABLES Performing Organization Address City/[facility] Co de Phone Number [facility] [place] [address] * POCT Glucose (04/06/2020 8:06 PM EST) Glucose, POC 145 65 - 199 mg/dL [facility] Comment: Supplemental ranges: <140 mg/dL before meals <180 mg/dL all other times of the day Blood specimen (specimen) 04/06/2020 8:06 PM EST 04/06/2020 8:06 PM EST Davian Carolina MD POINT OF CARE TEST ORDERABLES Performing Organization Address [facility] Co de Phone Number [facility] [place] [address] * POCT Glucose (04/06/2020 4:02 PM EST) Glucose, POC 177 65 - 199 mg/dL [facility] Comment: Supplemental ranges: <140 mg/dL before meals <180 mg/dL all other times of the day Blood specimen (specimen) 04/06/2020 4:02 PM EST 04/06/2020 4:02 PM EST Davian Carolina MD POINT OF CARE TEST ORDERABLES Performing Organization Address City/[facility] Co de Phone Number [facility] [place] [address] * POCT Glucose (04/06/2020 12:12 PM EST) Glucose, POC 156 65 - 199 mg/dL [facility] Comment: Supplemental ranges: <140 mg/dL before meals <180 mg/dL all other times of the day Blood specimen (specimen) 04/06/2020 12:12 PM EST 04/06/2020 12:12 PM EST Davian Carolina MD POINT OF CARE TEST ORDERABLES Performing Organization Address [facility] de Phone Number [facility] [place] [address] * POCT Glucose (04/06/2020 7:50 AM EST) Glucose, POC 170 65 - 199 mg/dL [facility] Comment: Supplemental ranges: <140 mg/dL before meals <180 mg/dL all other times of the day Blood specimen (specimen) 04/06/2020 7:50 AM EST 04/06/2020 7:50 AM EST Davian Carolina MD POINT OF CARE TEST ORDERABLES Performing Organization Address [facility] de Phone Number [facility] [place] [address] * POCT Glucose (04/06/2020 4:43 AM EST) Glucose, POC 198 65 - 199 mg/dL [facility] Comment: Supplemental ranges: <140 mg/dL before meals <180 mg/dL all other times of the day Blood specimen (specimen) 04/06/2020 4:43 AM EST 04/06/2020 4:43 AM EST Davian Carolina MD POINT OF CARE TEST ORDERABLES Performing Organization Address [facility] de Phone Number [facility] [place] [address] * (ABNORMAL) Differential, Automated (04/06/2020 1:30 AM EST) Neutrophil % 77.8 % [facility] Neutrophil Absolute 12.95(H) 1.70 - 6.10 x10(3)/mc L [facility] Lymph % 6.2 % [facility] Lymphocytes Abs 1.0 0.9 - 3.2 x10(3)/[facility] Monocyte % 9.8 % [facility] Monocyte Abs 1.6(H) 0.3 - 0.9 x10(3)/[facility] Eos % 0.8 % [facility] Eosinophils Abs 0.1 0.0 - 0.4 x10(3)/[facility] Basophil % 0.5 % [facility] Baso Absolute 0.1 0.0 - 0.1 x10(3)/[facility] Immature Gran % 4.90 % [facility] Comment: Immature granulocytes(IG's)percentage and absolute count will include metamyelocytes, myelocytes, and promyelocytes. Blood smears from CBCs yielding IG's will be scanned manually for concordance. If this scan disagrees with the automated IG or if promyelocytes are noted, a manual differential will be performed. Immature Gran Absolute 0.81(H) 0.00 - 0.04 x10(3)/[facility] Blood specimen (specimen) 04/06/2020 1:30 AM EST 04/06/2020 1:40 AM EST Narrative Resulting Agency Comment Spec In Lab Anjelica Jordan APRN HEMATOLOGY ORDER MAGAN Performing Organization Address City/State/[facility] Co de Phone Number [facility] [place] [address] * (ABNORMAL) Hemogram (04/06/2020 1:30 AM EST) White Blood Cell 16.7(H) 4.0 - 9.5 x10(3)/[facility] Red Blood Cell 3.04(L) 4.00 - 5.21 x10(6)/[facility] Hemoglobin 9.2(L) 11.7 - 15.5 gm/dL [facility] Hematocrit 27.3(L) 35.7 - 45.8 % [facility] Mean Cell Volume 89.8 82.6 - 94.4 fL [facility] Mean Cell Hemoglobin 30.3 27.1 - 32.0 pg [facility] Mean Cell Hemoglobin Concentration 33.7 31.7 - 35.0 gm/dL [facility] Platelet 445(H) 145 - 357 x10(3)/mc L [facility] RDW Standard Deviation 43.9 37.0 - 46.0 fL [facility] RDW coefficient of variation 13.2 11.5 - 14.1 % [facility] Mean Platelet Volume 9.9 7.6 - 12.9 fL [facility] NRBC% auto 0.0 % [facility] NRBC Absolute 0.000 0.000 - 0.000 x10(3)/mc L [facility] Blood specimen (specimen) 04/06/2020 1:30 AM EST 04/06/2020 1:40 AM EST Narrative Resulting Agency Comment Spec In Lab Anjelica Jordan APRN HEMATOLOGY ORDER MAGAN Performing Organization Address City/[facility]/ZIP Co de Phone Number [facility] [place] [address] * Phosphorus (04/06/2020 1:30 AM EST) Phosphorus 3.3 2.5 - 4.5 mg/dL [facility] Blood specimen (specimen) 04/06/2020 1:30 AM EST 04/06/2020 1:40 AM EST Narrative Resulting Agency Comment Spec In Lab Anjelica Jordan APRN CHEMISTRY ORDERA BLES Performing Organization Address City/[facility]/ZIP Co de Phone Number [facility] [place] [address] * Magnesium (04/06/2020 1:30 AM EST) Magnesium 0.88 0.69 - 1.07 mmol/L [facility] Blood specimen (specimen) 04/06/2020 1:30 AM EST 04/06/2020 1:40 AM EST Narrative Resulting Agency Comment Spec In Lab Anjelica E Nikki GRANDA CHEMISTRY ORDERA GEE [facility] [place] [address] * (ABNORMAL) Basic Metabolic Panel (non-fasting) (04/06/2020 1:30 AM EST) Glucose 180 65 - 199 mg/dL [facility] Comment:Diabetes: >=200 mg/d L plus symptoms Blood Urea Nitrogen 16 8 - 18 mg/dL [facility] Creatinine 0.42(L) 0.70 - 1.20 mg/dL [facility] Sodium 137 135 - 145 mmol/L [facility] Potassium 3.6 3.5 - 5.0 mmol/L [facility] Comment: Please note: ??Patients with WBC >100,000 may have falsely elevated Potassium levels. ??For accurate Potassium quantification in these patients send serum separator tube (gold top) for subsequent determinations. ??Contact the Clinical Chemistry Laboratory if there are any questions. Chloride 102 98 - 107 mmol/L [facility] Carbon Dioxide 26 22 - 31 mmol/L [facility] Anion Gap 9 5 - 15 mmol/L [facility] Calcium 7.7(L) 8.5 - 10.5 mg/dL [facility] Est Glomerular Filtration Rate 102 >=60 mL/min/1. 73 m?? [facility] Comment: This patient? s [...] Agency Comment Spec In Lab Anjelica Jordan SALES ACCOUNT DIRECTOR CHEMISTRY ORDERA BLES Performing Organization Address City/[facility]/ZIP Co de Phone Number [facility] [place] [address] * POCT Glucose (04/05/2020 11:23 PM EST) Glucose, POC 186 65 - 199 mg/dL [facility] Comment: Supplemental ranges: <140 mg/dL before meals <180 mg/dL all other times of the day Blood specimen (specimen) 04/05/2020 11:23 PM EST 04/05/2020 11:23 PM EST Davian Carolina MD POINT OF CARE TEST ORDERABLES Performing Organization Address [facility] Co de Phone Number [facility] [place] [address] * POCT Glucose (04/05/2020 8:03 PM EST) Glucose, POC 150 65 - 199 mg/dL [facility] Comment: Supplemental ranges: <140 mg/dL before meals <180 mg/dL all other times of the day Blood specimen (specimen) 04/05/2020 8:03 PM EST 04/05/2020 8:03 PM EST Davian Carolina MD POINT OF CARE TEST ORDERABLES Performing Organization Address City/[facility]/ZIP Co de Phone Number [facility] [place] [address] * POCT Glucose (04/05/2020 4:11 PM EST) Glucose, POC 171 65 - 199 mg/dL [facility] Comment: Supplemental ranges: <140 mg/dL before meals <180 mg/dL all other times of the day Blood specimen (specimen) 04/05/2020 4:11 PM EST 04/05/2020 4:11 PM EST Davian Carolina MD POINT OF CARE TEST ORDERABLES [facility] [place] [address] * XR Chest PA & Lateral (Generic) [...] during NG placement with persistent leukocyotosis and [id number] TECHNIQUE: PA and lateral views of the [...] signed by: Ayan Caballero MD, [facility]([phone]), at 04/05/2020 3:28 PM Davian Carolina MD IMG DX ORDERABLES * (ABNORMAL) POCT Glucose (04/05/2020 11:36 AM EST) Glucose, POC 202(H) 65 - 199 mg/dL [facility] Comment: Supplemental ranges: <140 mg/dL before meals <180 mg/dL all other times of the day Blood specimen (specimen) 04/05/2020 11:36 AM EST 04/05/2020 11:36 AM EST Davian Carolina MD POINT OF CARE TEST ORDERABLES [facility] [place] [address] * POCT Glucose (04/05/2020 8:06 AM EST) Glucose, POC 168 65 - 199 mg/dL [facility] Comment: Supplemental ranges: <140 mg/dL before meals <180 mg/dL all other times of the day Blood specimen (specimen) 04/05/2020 8:06 AM EST 04/05/2020 8:06 AM EST Davian Carolina MD POINT OF CARE TEST ORDERABLES [facility] [place] [address] * POCT Glucose (04/05/2020 4:03 AM EST) Glucose, POC 167 65 - 199 mg/dL [facility] Comment: Supplemental ranges: <140 mg/dL before meals <180 mg/dL all other times of the day Blood specimen (specimen) 04/05/2020 4:03 AM EST 04/05/2020 4:03 AM EST Davian Carolina MD POINT OF CARE TEST ORDERABLES [facility] [place] [address] * Scan, Peripheral Blood (04/05/2020 1:10 AM EST) Plat estimate Increased [facility] RBC Morphology Normal [facility] Dohle Bodies Present [facility] Blood specimen (specimen) 04/05/2020 1:10 AM EST 04/05/2020 1:25 AM EST Narrative Resulting Agency Comment Spec In Lab Anjelica Lissa Nikki GRANDA HEMATOLOGY ORDER MAGAN [facility] [place] [address] * (ABNORMAL) Differential, Automated (04/05/2020 1:10 AM EST) Neutrophil % 81.7 % [facility] Neutrophil Absolute 17.48(H) 1.70 - 6.10 x10(3)/mc L [facility] Lymph % 6.8 % [facility] Lymphocytes Abs 1.4 0.9 - 3.2 x10(3)/mc L [facility] Monocyte % 7.2 % [facility] Monocyte Abs 1.5(H) 0.3 - 0.9 x10(3)/mc L [facility] Eos % 0.7 % [facility] Eosinophils Abs 0.2 0.0 - 0.4 x10(3)/mc L [facility] Basophil % 0.5 % [facility] Baso Absolute 0.1 0.0 - 0.1 x10(3)/mc L [facility] Immature Gran % 3.10 % [facility] Comment: Immature granulocytes(IG's)percentage and absolute count will include metamyelocytes, myelocytes, and promyelocytes. Blood smears from CBCs yielding IG's will be scanned manually for concordance. If this scan disagrees with the automated IG or if promyelocytes are noted, a manual differential will be performed. Immature Gran Absolute 0.67(H) 0.00 - 0.04 x10(3)/mc L [facility] Blood specimen (specimen) 04/05/2020 1:10 AM EST 04/05/2020 1:25 AM EST Narrative Resulting Agency Comment Spec In Lab Anjelica Jordan APRN HEMATOLOGY ORDER MAGAN [facility] [place] [address] * (ABNORMAL) Hemogram (04/05/2020 1:10 AM EST) White Blood Cell 21.4(H) 4.0 - 9.5 x10(3)/mc L [facility] Red Blood Cell 3.33(L) 4.00 - 5.21 x10(6)/mc L [facility] Hemoglobin 9.9(L) 11.7 - 15.5 gm/dL [facility] Hematocrit 30.0(L) 35.7 - 45.8 % [facility] Mean Cell Volume 90.1 82.6 - 94.4 fL [facility] Mean Cell Hemoglobin 29.7 27.1 - 32.0 pg [facility] Mean Cell Hemoglobin Concentration 33.0 31.7 - 35.0 gm/dL [facility] Platelet 444(H) 145 - 357 x10(3)/mc L [facility] RDW Standard Deviation 42.1 37.0 - 46.0 fL [facility] RDW coefficient of variation 12.7 11.5 - 14.1 % [facility] Mean Platelet Volume 10.0 7.6 - 12.9 fL [facility] NRBC% auto 0.0 % [facility] NRBC Absolute 0.000 0.000 - 0.000 x10(3)/mc L [facility] Blood specimen (specimen) 04/05/2020 1:10 AM EST 04/05/2020 1:25 AM EST Narrative Resulting Agency Comment Spec In Lab Anjelica Jordan APRN HEMATOLOGY ORDER MAGAN Performing Organization Address City/[facility]/ZIP Co de Phone Number [facility] [place] [address] * Phosphorus (04/05/2020 1:10 AM EST) Pathologist [facility] Phosphorus 2.9 2.5 - 4.5 mg/dL [facility] Blood specimen (specimen) 04/05/2020 1:10 AM EST 04/05/2020 1:25 AM EST Narrative Resulting Agency Comment Spec In Lab Anjelica Jordan SALES ACCOUNT DIRECTOR CHEMISTRY ORDERA BLES Performing Organization Address [facility] Co de Phone Number [facility] [place] [address] * Magnesium (04/05/2020 1:10 AM EST) Pathologist [facility] Magnesium 0.82 0.69 - 1.07 mmol/L [facility] Blood specimen (specimen) 04/05/2020 1:10 AM EST 04/05/2020 1:25 AM EST Narrative Resulting Agency Comment Spec In Lab Anjelica Jordan SALES ACCOUNT DIRECTOR CHEMISTRY ORDERA BLES Performing Organization Address [facility] Co de Phone Number [facility] [place] [address] * (ABNORMAL) Basic Metabolic Panel (non-fasting) (04/05/2020 1:10 AM EST) Glucose 175 65 - 199 mg/dL [facility] Comment:Diabetes: >=200 mg/d L plus symptoms Blood Urea Nitrogen 11 8 - 18 mg/dL [facility] Creatinine 0.36(L) 0.70 - 1.20 mg/dL [facility] Sodium 134(L) 135 - 145 mmol/L [facility] Potassium 3.4(L) 3.5 - 5.0 mmol/L [facility] Comment: Please note: ??Patients with WBC >100,000 may have falsely elevated Potassium levels. ??For accurate Potassium quantification in these patients send serum separator tube (gold top) for subsequent determinations. ??Contact the Clinical Chemistry Laboratory if there are any questions. Chloride 101 98 - 107 mmol/L [facility] Carbon Dioxide 26 22 - 31 mmol/L [facility] Anion Gap 7 5 - 15 mmol/L [facility] Calcium 8.0(L) 8.5 - 10.5 mg/dL [facility] Est Glomerular Filtration Rate 107 >=60 mL/min/1. 73 m?? [facility] Comment: This patient? s [...] Lab Anjelica Jordan APRN CHEMISTRY ORDERA BLES [facility] [place] [address] * POCT Glucose (04/05/2020 1:09 AM EST) Glucose, POC 172 65 - 199 mg/dL [facility] Comment: Supplemental ranges: <140 mg/dL before meals <180 mg/dL all other times of the day Blood specimen (specimen) 04/05/2020 1:09 AM EST 04/05/2020 1:09 AM EST Davian Carolina MD POINT OF CARE TEST ORDERABLES [facility] [place] [address] * POCT Glucose (04/04/2020 10:11 PM EST) Glucose, POC 197 65 - 199 mg/dL [facility] Comment: Supplemental ranges: <140 mg/dL before meals <180 mg/dL all other times of the day Blood specimen (specimen) 04/04/2020 10:11 PM EST 04/04/2020 10:11 PM EST Davian Carolina MD POINT OF CARE TEST ORDERABLES Performing Organization Address [facility] Co de Phone Number [facility] [place] [address] * POCT Glucose (04/04/2020 8:22 PM EST) Glucose, POC 191 65 - 199 mg/dL [facility] [facility] Comment: Supplemental ranges: <140 mg/dL before meals <180 mg/dL all other times of the day Blood specimen (specimen) 04/04/2020 8:22 PM EST 04/04/2020 8:22 PM EST Davian Carolina MD POINT OF CARE TEST ORDERABLES Performing Organization Address City/[facility] Co de Phone Number [facility] [place] [address] * POCT Glucose (04/04/2020 4:36 PM EST) Glucose, POC 190 65 - 199 mg/dL [facility] Comment: Supplemental ranges: <140 mg/dL before meals <180 mg/dL all other times of the day Blood specimen (specimen) 04/04/2020 4:36 PM EST 04/04/2020 4:36 PM EST Davian Carolina MD POINT OF CARE TEST ORDERABLES Performing Organization Address City/[facility]/ZIP Co de Phone Number [facility] [place] [address] * POCT Glucose (04/04/2020 11:52 AM EST) Glucose, POC 178 65 - 199 mg/dL [facility] Comment: Supplemental ranges: <140 mg/dL before meals <180 mg/dL all other times of the day Blood specimen (specimen) 04/04/2020 11:52 AM EST 04/04/2020 11:52 AM EST Davian Carolina MD POINT OF CARE TEST ORDERABLES Performing Organization Address City/[facility]/ZIP Co de Phone Number [facility] [place] [address] * (ABNORMAL) POCT Glucose (04/04/2020 7:38 AM EST) Glucose, POC 220(H) 65 - 199 mg/dL [facility] Comment: Supplemental ranges: <140 mg/dL before meals <180 mg/dL all other times of the day Blood specimen (specimen) 04/04/2020 7:38 AM EST 04/04/2020 7:38 AM EST Davian Carolina MD POINT OF CARE TEST ORDERABLES Performing Organization Address [facility] Co de Phone Number [facility] [place] [address] * (ABNORMAL) POCT Glucose (04/04/2020 5:20 AM EST) Glucose, POC 203(H) 65 - 199 mg/dL [facility] Comment: Supplemental ranges: <140 mg/dL before meals <180 mg/dL all other times of the day Blood specimen (specimen) 04/04/2020 5:20 AM EST 04/04/2020 5:20 AM EST Davian Carolina MD POINT OF CARE TEST ORDERABLES [facility] [place] [address] * POCT Glucose (04/04/2020 5:19 AM EST) Pathologist [facility] Glucose, POC 198 65 - 199 mg/dL [facility] Comment: Supplemental ranges: <140 mg/dL before meals <180 mg/dL all other times of the day Blood specimen (specimen) 04/04/2020 5:19 AM EST 04/04/2020 5:19 AM EST Davian Carolina MD POINT OF CARE TEST ORDERABLES [facility] [place] [address] * (ABNORMAL) Differential, Automated (04/04/2020 3:26 AM EST) [facility] Neutrophil % 86.3 % [facility] Neutrophil Absolute 17.68(H) 1.70 - 6.10 x10(3)/mc L [facility] Lymph % 4.5 % [facility] Lymphocytes Abs 0.9 0.9 - 3.2 x10(3)/mc L [facility] Monocyte % 6.0 % [facility] Monocyte Abs 1.2(H) 0.3 - 0.9 x10(3)/mc L [facility] Eos % 1.5 % [facility] Eosinophils Abs 0.3 0.0 - 0.4 x10(3)/ L [facility] Basophil % 0.3 % [facility] Baso Absolute 0.1 0.0 - 0.1 x10(3)/mc L [facility] Immature Gran % 1.40 % [facility] Comment: Immature granulocytes(IG's)percentage and absolute count will include metamyelocytes, myelocytes, and promyelocytes. Blood smears from CBCs yielding IG's will be scanned manually for concordance. If this scan disagrees with the automated IG or if promyelocytes are noted, a manual differential will be performed. Immature Gran Absolute 0.29(H) 0.00 - 0.04 x10(3)/mc L [facility] Blood specimen (specimen) 04/04/2020 3:26 AM EST 04/04/2020 3:32 AM EST Narrative Resulting Agency Comment Spec In Lab Anjelica Jordan APRN HEMATOLOGY ORDER MAGAN [facility] [place] [address] * (ABNORMAL) Hemogram (04/04/2020 3:26 AM EST) White Blood Cell 20.5(H) 4.0 - 9.5 x10(3)/[facility] Red Blood Cell 3.01(L) 4.00 - 5.21 x10(6)/[facility] Hemoglobin 9.1(L) 11.7 - 15.5 gm/dL [facility] Hematocrit 27.1(L) 35.7 - 45.8 % [facility] Mean Cell Volume 90.0 82.6 - 94.4 fL [facility] Mean Cell Hemoglobin 30.2 27.1 - 32.0 pg [facility] Mean Cell Hemoglobin Concentration 33.6 31.7 - 35.0 gm/dL [facility] Platelet 367(H) 145 - 357 x10(3)/[facility] RDW Standard Deviation 42.0 37.0 - 46.0 [facility] RDW coefficient of variation 12.6 11.5 - 14.1 % [facility] Mean Platelet Volume 9.6 7.6 - 12.9 fL [facility] NRBC% auto 0.0 % [facility] NRBC Absolute 0.000 0.000 - 0.000 x10(3)/[facility] Blood specimen (specimen) 04/04/2020 3:26 AM EST 04/04/2020 3:32 AM EST Narrative Resulting Agency Comment Spec In Lab Anjelica Jordan APRN HEMATOLOGY ORDER MAGAN Performing Organization Address [facility] Co de Phone Number [facility] [place] [address] * (ABNORMAL) Phosphorus (04/04/2020 3:26 AM EST) Phosphorus 2.4(L) 2.5 - 4.5 mg/dL [facility] Blood specimen (specimen) 04/04/2020 3:26 AM EST 04/04/2020 3:32 AM EST Narrative Resulting Agency Comment Spec In Lab Anjelica Jordan APRN CHEMISTRY ORDERA BLES Performing Organization Address [facility] Co de Phone Number [facility] [place] [address] * Magnesium (04/04/2020 3:26 AM EST) Magnesium 0.84 0.69 - 1.07 mmol/L [facility] Blood specimen (specimen) 04/04/2020 3:26 AM EST 04/04/2020 3:32 AM EST Narrative Resulting Agency Comment Spec In Lab Anjelica Jordan APRN CHEMISTRY ORDERA BLES Performing Organization Address [facility] Co de Phone Number [facility] [place] [address] * (ABNORMAL) Basic Metabolic Panel (non-fasting) (04/04/2020 3:26 AM EST) Glucose 181 65 - 199 mg/dL [facility] Comment:Diabetes: >=200 mg/d L plus symptoms Blood Urea Nitrogen 13 8 - 18 mg/dL [facility] Creatinine 0.34(L) 0.70 - 1.20 mg/dL [facility] Sodium 134(L) 135 - 145 mmol/L [facility] Potassium 3.3(L) 3.5 - 5.0 mmol/L [facility] Comment: Please note: ??Patients with WBC >100,000 may have falsely elevated Potassium levels. ??For accurate Potassium quantification in these patients send serum separator tube (gold top) for subsequent determinations. ??Contact the Clinical Chemistry Laboratory if there are any questions. Chloride 101 98 - 107 mmol/L [facility] Carbon Dioxide 28 22 - 31 mmol/L [facility] Anion Gap 5 5 - 15 mmol/L [facility] Calcium 7.8(L) 8.5 - 10.5 mg/dL [facility] Est Glomerular Filtration Rate 109 >=60 mL/min/1. 73 m?? [facility] Comment: This patient? s [...] In Lab Anjelica Jordan [facility] Organization Address City/State/ZIP Co de Phone Number [facility] [place] [address] * POCT Glucose (04/04/2020 3:18 AM EST) Glucose, POC 172 65 - 199 mg/dL [facility] Comment: Supplemental ranges: <140 mg/dL before meals <180 mg/dL all other times of the day Blood specimen (specimen) 04/04/2020 3:18 AM EST 04/04/2020 3:18 AM EST Davian Carolina MD POINT OF CARE TEST ORDERABLES Performing Organization Address City/[facility]/ZIP Co de Phone Number [facility] [place] [address] * POCT Glucose (04/04/2020 12:50 AM EST) Glucose, POC 145 65 - 199 mg/dL [facility] Comment: Supplemental ranges: <140 mg/dL before meals <180 mg/dL all other times of the day Blood specimen (specimen) 04/04/2020 12:50 AM EST 04/04/2020 12:50 AM EST Davian Carolina MD POINT OF CARE TEST ORDERABLES Performing Organization Address [facility] Co de Phone Number [facility] [place] [address] * POCT Glucose (04/03/2020 9:25 PM EST) Glucose, POC 173 65 - 199 mg/dL [facility] Comment: Supplemental ranges: <140 mg/dL before meals <180 mg/dL all other times of the day Blood specimen (specimen) 04/03/2020 9:25 PM EST 04/03/2020 9:25 PM EST Davian Carolina MD POINT OF CARE TEST ORDERABLES Performing Organization Address City/[facility]/ZIP Co de Phone Number [facility] [place] [address] * POCT Glucose (04/03/2020 4:19 PM EST) Glucose, POC 197 65 - 199 mg/dL [facility] Comment: Supplemental ranges: <140 mg/dL before meals <180 mg/dL all other times of the day Blood specimen (specimen) 04/03/2020 4:19 PM EST 04/03/2020 4:19 PM EST Davian Carolina MD POINT OF CARE TEST ORDERABLES [facility] [place] [address] * (ABNORMAL) Urinalysis Microscopic Exam (04/03/2020 2:22 PM EST) RBC, Urine 12(H) 0 - 4 /HPF [facility] WBC, Urine 6(H) 0 - 5 /HPF [facility] Squamous Epithelial Cells Raw Data, Urine 5(H) <=4 /HPF [facility] Transitional Epithelial Cells, Urine <1 <=1 /HPF [facility] Hyaline Casts, Urine <1 0 - 2 /LPF [facility] Urine specimen (specimen) 04/03/2020 2:22 PM EST 04/03/2020 2:54 PM EST Narrative Resulting Agency Comment Spec In Lab Anjelica Lissa Nikki GRANDA URINE ORDERABLES Performing Organization Address City/State/[facility] Co de Phone Number [facility] [place] [address] * (ABNORMAL) Urinalysis with reflex Culture (04/03/2020 2:22 PM EST) Glucose, Urine Dipstick Negative Negative mg/dL [facility] Protein, Urine Dipstick 30(A) Negative mg/dL [facility] Bilirubin, Urine Dipstick Negative Negative mg/dL [facility] Comment: Clinical correlation required for positive Urine Bilirubin results as false positive may occur with some drugs and drug related products. If a false positive is suspected a serum total bilirubin should be considered if clinically indicated. Urobilinogen, Urine Dipstick Normal Normal mg/dL [facility] pH, Urn (dipstick) 6.0 5.0 - 8.0 [facility] Blood, Urine Dipstick Negative Negative mg/dL [facility] Ketone, Urine Dipstick 40(A) Negative mg/dL [facility] Nitrite, Urine Dipstick Negative Negative [facility] Leukocytes, Urine Dipstick Negative Negative [facility] Appearance, Urine Dipstick Clear Clear [facility] Specific [place] Urine Automated 1.025 1.006 - 1.030 [facility] Color, Urine Dipstick Yellow Yellow [facility] Reflex to Culture No [facility] Urine specimen (specimen) 04/03/2020 2:22 PM EST 04/03/2020 2:54 PM EST Narrative Resulting Agency Comment Spec In Lab Anjelica Jordan APRN URINE ORDERABLES Performing Organization Address [facility]/ZIP Co de Phone Number [facility] [place] [address] * POCT Glucose (04/03/2020 12:47 PM EST) Glucose, POC 151 65 - 199 mg/dL [facility] Comment: Supplemental ranges: <140 mg/dL before meals <180 mg/dL all other times of the day Blood specimen (specimen) 04/03/2020 12:47 PM EST 04/03/2020 12:47 PM EST Davian Carolina MD POINT OF CARE TEST ORDERABLES Performing Organization Address [facility] Co de Phone Number [facility] [place] [address] * XR Abdomen 1 view (Generic) (04/03/2020 [...] signed by: Deepika Handy MD, [facility] ([phone]), at 04/03/2020 11:49 AM Narrative 04/03/2020 11:49 [...] signed by: Deepika Handy MD, [facility]([phone]), at 04/03/2020 11:49 AM Anjelica Jordan APRN IMG DX ORDERABLE S * POCT Glucose (04/03/2020 5:18 AM EST) [facility] Glucose, POC 192 65 - 199 mg/dL [facility] Comment: Supplemental ranges: <140 mg/dL before meals <180 mg/dL all other times of the day Blood specimen (specimen) 04/03/2020 5:18 AM EST 04/03/2020 5:18 AM EST Davian Carolina MD POINT OF CARE TEST ORDERABLES [facility] [place] [address] * (ABNORMAL) Differential, Automated (04/03/2020 2:50 AM EST) [facility] Neutrophil % 91.6 % [facility] Neutrophil Absolute 16.61(H) 1.70 - 6.10 x10(3)/mc L [facility] Lymph % 2.9 % [facility] Lymphocytes Abs 0.5(L) 0.9 - 3.2 x10(3)/mc L [facility] Monocyte % 4.7 % [facility] Monocyte Abs 0.8 0.3 - 0.9 x10(3)/mc L [facility] Eos % 0.1 % [facility] Eosinophils Abs 0.0 0.0 - 0.4 x10(3)/ L [facility] Basophil % 0.2 % [facility] Baso Absolute 0.0 0.0 - 0.1 x10(3)/ L [facility] Immature Gran % 0.50 % [facility] Comment: Immature granulocytes(IG's)percentage and absolute count will include metamyelocytes, myelocytes, and promyelocytes. Blood smears from CBCs yielding IG's will be scanned manually for concordance. If this scan disagrees with the automated IG or if promyelocytes are noted, a manual differential will be performed. Immature Gran Absolute 0.09(H) 0.00 - 0.04 x10(3)/ L [facility] Blood specimen (specimen) 04/03/2020 2:50 AM EST 04/03/2020 3:05 AM EST Narrative Resulting Agency Comment Spec In Lab Anjelica Jordan APRN HEMATOLOGY ORDER MAGAN [facility] [place] [address] * (ABNORMAL) Hemogram (04/03/2020 2:50 AM EST) White Blood Cell 18.1(H) 4.0 - 9.5 x10(3)/ L [facility] Red Blood Cell 3.40(L) 4.00 - 5.21 x10(6)/mc L [facility] Hemoglobin 10.2(L) 11.7 - 15.5 gm/dL [facility] Hematocrit 30.9(L) 35.7 - 45.8 % [facility] Mean Cell Volume 90.9 82.6 - 94.4 fL [facility] Mean Cell Hemoglobin 30.0 27.1 - 32.0 pg [facility] Mean Cell Hemoglobin Concentration 33.0 31.7 - 35.0 gm/dL [facility] Platelet 380(H) 145 - 357 x10(3)/mc L [facility] RDW Standard Deviation 40.6 37.0 - 46.0 fL [facility] RDW coefficient of variation 12.3 11.5 - 14.1 % [facility] Mean Platelet Volume 10.0 7.6 - 12.9 fL [facility] NRBC% auto 0.0 % [facility] NRBC Absolute 0.000 0.000 - 0.000 x10(3)/mc L [facility] Blood specimen (specimen) 04/03/2020 2:50 AM EST 04/03/2020 3:05 AM EST Narrative Resulting Agency Comment Spec In Lab Anjelica Jordan APRN HEMATOLOGY ORDER MAGAN Performing Organization Address [facility] Co de Phone Number [facility] [place] [address] * (ABNORMAL) Phosphorus (04/03/2020 2:50 AM EST) Phosphorus 2.2(L) 2.5 - 4.5 mg/dL [facility] Blood specimen (specimen) 04/03/2020 2:50 AM EST 04/03/2020 3:05 AM EST Narrative Resulting Agency Comment Spec In Lab Anjelica Jordan APRN CHEMISTRY ORDERA BLES Performing Organization Address City/[facility]/ZIP Co de Phone Number [facility] [place] [address] * Magnesium (04/03/2020 2:50 AM EST) Magnesium 0.76 0.69 - 1.07 mmol/L [facility] Blood specimen (specimen) 04/03/2020 2:50 AM EST 04/03/2020 3:05 AM EST Narrative Resulting Agency Comment Spec In Lab Anjelica Jordan JESUS ALBERTO CHEMISTRY ORDERA BLES [facility] [place] [address] * (ABNORMAL) Basic Metabolic Panel (non-fasting) (04/03/2020 2:50 AM EST) Glucose 162 65 - 199 mg/dL [facility] Comment:Diabetes: >=200 mg/d L plus symptoms Blood Urea Nitrogen 11 8 - 18 mg/dL [facility] Creatinine 0.37(L) 0.70 - 1.20 mg/dL [facility] Sodium 129(L) 135 - 145 mmol/L [facility] Potassium 3.8 3.5 - 5.0 mmol/L [facility] Comment: Please note: ??Patients with WBC >100,000 may have falsely elevated Potassium levels. ??For accurate Potassium quantification in these patients send serum separator tube (gold top) for subsequent determinations. ??Contact the Clinical Chemistry Laboratory if there are any questions. Chloride 96(L) 98 - 107 mmol/L [facility] Carbon Dioxide 23 22 - 31 mmol/L [facility] Anion Gap 10 5 - 15 mmol/L [facility] Calcium 7.6(L) 8.5 - 10.5 mg/dL [facility] Est Glomerular Filtration Rate 106 >=60 mL/min/1. 73 m?? [facility] Comment: This patient? s [...] APRN CHEMISTRY ORDERA BLES Performing Organization Address City/[facility] Co de Phone Number [facility] [place] [address] * POCT Glucose (04/02/2020 10:57 PM EST) Glucose, POC 164 65 - 199 mg/dL [facility] Comment: Supplemental ranges: <140 mg/dL before meals <180 mg/dL all other times of the day Blood specimen (specimen) 04/02/2020 10:57 PM EST 04/02/2020 10:57 PM EST Davian Carolina MD POINT OF CARE TEST ORDERABLES Performing Organization Address [facility] de Phone Number [facility] [place] [address] * XR Chest One View (04/02/2020 7:21 [...] signed by: Olayinka Mcduffie MD, [facility] ([phone]), at 04/02/2020 8:07 PM Narrative 04/02/2020 8:07 [...] signed by: Olayinka Mcduffie MD, [facility]([phone]), at 04/02/2020 8:07 PM Davian Carolina MD [...] signed by: Jayro Maier MD, [facility] ([phone]), at 04/02/2020 8:17 PM Narrative 04/02/2020 8:17 [...] below. Electronically signed by: Jayro Maier MD, [facility]([phone]), at 04/02/2020 8:17 PM Davian Carolina MD IMG DX ORDERABLES * (ABNORMAL) Basic Metabolic Panel (non-fasting) (04/02/2020 6:15 PM EST) Glucose 92 65 - 199 mg/dL [facility] Comment:Diabetes: >=200 mg/d L plus symptoms Blood Urea Nitrogen 8 8 - 18 mg/dL [facility] Creatinine 0.40(L) 0.70 - 1.20 mg/dL [facility] Sodium 132(L) 135 - 145 mmol/L [facility] Potassium 3.9 3.5 - 5.0 mmol/L [facility] Comment: Please note: ??Patients with WBC >100,000 may have falsely elevated Potassium levels. ??For accurate Potassium quantification in these patients send serum separator tube (gold top) for subsequent determinations. ??Contact the Clinical Chemistry Laboratory if there are any questions. Chloride 96(L) 98 - 107 mmol/L [facility] Carbon Dioxide 22 22 - 31 mmol/L [facility] Anion Gap 14 5 - 15 mmol/L [facility] Calcium 7.7(L) 8.5 - 10.5 mg/dL [facility] Est Glomerular Filtration Rate 103 >=60 mL/min/1. 73 m?? [facility] Comment: This patient? s [...] APRN CHEMISTRY ORDERA BLES Performing Organization Address [facility] Co de Phone Number [facility] [place] [address] * POCT Glucose (04/02/2020 5:17 PM EST) [facility] Glucose, POC 85 65 - 199 mg/dL [facility] Comment: Supplemental ranges: <140 mg/dL before meals <180 mg/dL all other times of the day Blood specimen (specimen) 04/02/2020 5:17 PM EST 04/02/2020 5:17 PM EST Davian Carolina MD POINT OF CARE TEST ORDERABLES Performing Organization Address [facility] Co de Phone Number [facility] [place] [address] * UPPER GI ENDOSCOPY (04/02/2020 2:52 PM EST) [facility] UPPER GI ENDOSCOPY [facility] Endoscopy Procedure Date: 04/02/2020 2:52 PM ? Patient Name: Linda Abel ? Date of : 1945 ? Age: 74 ? Order #: [id number] ? Instrument Name: [id number] ? Procedure: ? Upper GI endoscopy Indications: [...] Glucose, POC 106 65 - 199 mg/dL [facility] Comment: Supplemental ranges: <140 mg/dL before meals <180 mg/dL all other times of the day Blood specimen (specimen) 04/02/2020 12:12 PM EST 04/02/2020 12:12 PM EST Davian Carolina MD POINT OF CARE TEST ORDERABLES Performing Organization Address [facility] Co de Phone Number [facility] [place] [address] * POCT Glucose (04/02/2020 9:58 AM EST) Glucose, POC 104 65 - 199 mg/dL [facility] Comment: Supplemental ranges: <140 mg/dL before meals <180 mg/dL all other times of the day Blood specimen (specimen) 04/02/2020 9:58 AM EST 04/02/2020 9:58 AM EST Davian Carolina MD POINT OF CARE TEST ORDERABLES Performing Organization Address [facility] Co de Phone Number [facility] [place] [address] * POCT Glucose (04/02/2020 8:04 AM EST) Glucose, POC 106 65 - 199 mg/dL [facility] Comment: Supplemental ranges: <140 mg/dL before meals <180 mg/dL all other times of the day Blood specimen (specimen) 04/02/2020 8:04 AM EST 04/02/2020 8:04 AM EST Davian Carolina MD POINT OF CARE TEST ORDERABLES Performing Organization Address City/[facility]/ZIP Co [place] [address] * (ABNORMAL) Differential, Automated (04/02/2020 1:40 AM EST) Pathologist [facility] Neutrophil % 88.6 % [facility] Neutrophil Absolute 14.39(H) 1.70 - 6.10 x10(3)/ L [facility] Lymph % 6.2 % [facility] Lymphocytes Abs 1.0 0.9 - 3.2 x10(3)/ L [facility] Monocyte % 4.2 % [facility] Monocyte Abs 0.7 0.3 - 0.9 x10(3)/[facility] Eos % 0.1 % [facility] Eosinophils Abs 0.0 0.0 - 0.4 x10(3)/[facility] Basophil % 0.5 % [facility] Baso Absolute 0.1 0.0 - 0.1 x10(3)/[facility] Immature Gran % 0.40 % [facility] Comment: Immature granulocytes(IG's)percentage and absolute count will include metamyelocytes, myelocytes, and promyelocytes. Blood smears from CBCs yielding IG's will be scanned manually for concordance. If this scan disagrees with the automated IG or if promyelocytes are noted, a manual differential will be performed. Immature Gran Absolute 0.07(H) 0.00 - 0.04 x10(3)/ L [facility] Blood specimen (specimen) 04/02/2020 1:40 AM EST 04/02/2020 1:45 AM EST Narrative Resulting Agency Comment Spec In Lab Anjelica Jordan APRN HEMATOLOGY ORDER MAGAN [facility] [place] [address] * (ABNORMAL) Hemogram (04/02/2020 1:40 AM EST) [facility] White Blood Cell 16.2(H) 4.0 - 9.5 x10(3)/[facility] Red Blood Cell 3.53(L) 4.00 - 5.21 x10(6)/ L [facility] Hemoglobin 11.0(L) 11.7 - 15.5 gm/dL [facility] Hematocrit 31.1(L) 35.7 - 45.8 % [facility] Mean Cell Volume 88.1 82.6 - 94.4 fL [facility] Mean Cell Hemoglobin 31.2 27.1 - 32.0 pg [facility] Mean Cell Hemoglobin Concentration 35.4(H) 31.7 - 35.0 gm/dL [facility] Platelet 351 145 - 357 x10(3)/[facility] RDW Standard Deviation 40.2 37.0 - 46.0 fL [facility] RDW coefficient of variation 12.4 11.5 - 14.1 % [facility] Mean Platelet Volume 10.2 7.6 - 12.9 fL [facility] NRBC% auto 0.0 % [facility] NRBC Absolute 0.000 0.000 - 0.000 x10(3)/[facility] Blood specimen (specimen) 04/02/2020 1:40 AM EST 04/02/2020 1:45 AM EST Narrative Resulting Agency Comment Spec In Lab Anjelica Jordan APRN HEMATOLOGY ORDER MAGAN [facility] [place] [address] * Phosphorus (04/02/2020 1:40 AM EST) Phosphorus 3.5 2.5 - 4.5 mg/dL [facility] Blood specimen (specimen) 04/02/2020 1:40 AM EST 04/02/2020 1:45 AM EST Narrative Resulting Agency Comment Spec In Lab Anjelica Jordan SALES ACCOUNT DIRECTOR CHEMISTRY ORDERA BLES Performing Organization Address City/[facility]/ZIP Co de Phone Number [facility] [place] [address] * Magnesium (04/02/2020 1:40 AM EST) Pathologist [facility] Magnesium 0.69 0.69 - 1.07 mmol/L [facility] Blood specimen (specimen) 04/02/2020 1:40 AM EST 04/02/2020 1:45 AM EST Narrative Resulting Agency Comment Spec In Lab Anjelica Jordan SALES ACCOUNT DIRECTOR CHEMISTRY ORDERA BLES Performing Organization Address [facility] Co de Phone Number [facility] [place] [address] * (ABNORMAL) Basic Metabolic Panel (non-fasting) (04/02/2020 1:40 AM EST) Pathologist [facility] Glucose 115 65 - 199 mg/dL [facility] Comment:Diabetes: >=200 mg/d L plus symptoms Blood Urea Nitrogen 11 8 - 18 mg/dL [facility] Creatinine 0.57(L) 0.70 - 1.20 mg/dL [facility] Sodium 131(L) 135 - 145 mmol/L [facility] Potassium 4.3 3.5 - 5.0 mmol/L [facility] Comment: Please note: ??Patients with WBC >100,000 may have falsely elevated Potassium levels. ??For accurate Potassium quantification in these patients send serum separator tube (gold top) for subsequent determinations. ??Contact the Clinical Chemistry Laboratory if there are any questions. Chloride 94(L) 98 - 107 mmol/L [facility] Carbon Dioxide 24 22 - 31 mmol/L [facility] Anion Gap 13 5 - 15 mmol/L [facility] Calcium 8.2(L) 8.5 - 10.5 mg/dL [facility] Est Glomerular Filtration Rate 92 >=60 mL/min/1. 73 m?? [facility] Comment: This patient? s [...] APRN CHEMISTRY ORDERA BLES Performing Organization Address [facility] Co de Phone Number [facility] [place] [address] * POCT Glucose (04/01/2020 7:48 PM EST) Glucose, POC 109 65 - 199 mg/dL [facility] Comment: Supplemental ranges: <140 mg/dL before meals <180 mg/dL all other times of the day Blood specimen (specimen) 04/01/2020 7:48 PM EST 04/01/2020 7:48 PM EST Davian Carolina MD POINT OF CARE TEST ORDERABLES Performing Organization Address [facility] Co de Phone Number [facility] [place] [address] * XR Abdomen 1 view (Generic) (04/01/2020 [...] ? Electronically signed by: CALEB KAPOOR DO [facility] ([phone]), at 04/01/2020 5:59 PM Narrative 04/01/2020 5:59 [...] Glucose Fasting 112(H) 65 - 99 mg/dL [facility] Comment: ?Fasting* Glucose Interpretive [...] of Diabetes Mellitus, Position Statement from the [place] [employer]. ??Diabetes Care, Volume 33, Supplement 1, Apr 2009 Blood Urea Nitrogen 9 8 - 18 mg/dL [facility] Creatinine 0.51(L) 0.70 - 1.20 mg/dL [facility] Sodium 128(L) 135 - 145 mmol/L [facility] Potassium 3.8 3.5 - 5.0 mmol/L [facility] Comment: Please note: ??Patients with WBC >100,000 may have falsely elevated Potassium levels. ??For accurate Potassium quantification in these patients send serum separator tube (gold top) for subsequent determinations. ??Contact the Clinical Chemistry Laboratory if there are any questions. Chloride 89(L) 98 - 107 mmol/L [facility] Carbon Dioxide 27 22 - 31 mmol/L [facility] Anion Gap 12 5 - 15 mmol/L [facility] Calcium 8.4(L) 8.5 - 10.5 mg/dL [facility] Est Glomerular Filtration Rate 95 >=60 mL/min/1. 73 m?? [facility] Comment: This patient? s [...] MD CHEMISTRY ORDERABL ES Performing Organization Address City/[facility]/ZIP Co de Phone Number [facility] [place] [address] * POCT Glucose (04/01/2020 3:31 PM EST) Glucose, POC 111 65 - 199 mg/dL [facility] Comment: Supplemental ranges: <140 mg/dL before meals <180 mg/dL all other times of the day Blood specimen (specimen) 04/01/2020 3:31 PM EST 04/01/2020 3:31 PM EST Davian Carolina MD POINT OF CARE TEST ORDERABLES Performing Organization Address [facility]/ZIP Co de Phone Number [facility] [place] [address] * CT Abdomen & Pelvis w Contrast [...] signed by: Raimundo Mccurdy MD, [facility] ([phone]), at 04/01/2020 4:09 PM Narrative 04/01/2020 4:09 [...] administration of contrast. Administered 66.0 ml of [id number] mg/ml. Oral contrast was administered. COMPARISON: Postoperative [...] signed by: Raimundo Mccurdy MD, [facility]([phone]), at 04/01/2020 4:09 PM Anjelica Jordan SALES ACCOUNT DIRECTOR IMG CT ORDERABLE S * POCT Glucose (04/01/2020 11:20 AM EST) Glucose, POC 138 65 - 199 mg/dL [facility] Comment: Supplemental ranges: <140 mg/dL before meals <180 mg/dL all other times of the day Blood specimen (specimen) 04/01/2020 11:20 AM EST 04/01/2020 11:20 AM EST Davian Carolina MD POINT OF CARE TEST ORDERABLES Performing Organization Address [facility] Co de Phone Number [facility] [place] [address] * POCT Glucose (04/01/2020 7:30 AM EST) Glucose, POC 170 65 - 199 mg/dL [facility] Comment: Supplemental ranges: <140 mg/dL before meals <180 mg/dL all other times of the day Blood specimen (specimen) 04/01/2020 7:30 AM EST 04/01/2020 7:30 AM EST Davian Carolina MD POINT OF CARE TEST ORDERABLES Performing Organization Address City/[facility]/ZIP Co de Phone Number [facility] [place] [address] * POCT Glucose (04/01/2020 4:43 AM EST) Glucose, POC 152 65 - 199 mg/dL [facility] Comment: Supplemental ranges: <140 mg/dL before meals <180 mg/dL all other times of the day Blood specimen (specimen) 04/01/2020 4:43 AM EST 04/01/2020 4:43 AM EST Davian Carolina MD POINT OF CARE TEST ORDERABLES [facility] [place] [address] * (ABNORMAL) Differential, Automated (04/01/2020 4:20 AM EST) Pathologist [facility] Neutrophil % 85.6 % [facility] Neutrophil Absolute 8.42(H) 1.70 - 6.10 x10(3)/mc L [facility] Lymph % 7.1 % [facility] Lymphocytes Abs 0.7(L) 0.9 - 3.2 x10(3)/mc L [facility] Monocyte % 5.2 % [facility] Monocyte Abs 0.5 0.3 - 0.9 x10(3)/mc L [facility] Eos % 1.2 % [facility] Eosinophils Abs 0.1 0.0 - 0.4 x10(3)/mc L [facility] Basophil % 0.4 % [facility] Baso Absolute 0.0 0.0 - 0.1 x10(3)/mc L [facility] Immature Gran % 0.50 % [facility] Comment: Immature granulocytes(IG's)percentage and absolute count will include metamyelocytes, myelocytes, and promyelocytes. Blood smears from CBCs yielding IG's will be scanned manually for concordance. If this scan disagrees with the automated IG or if promyelocytes are noted, a manual differential will be performed. Immature Gran Absolute 0.05(H) 0.00 - 0.04 x10(3)/mc L [facility] Blood specimen (specimen) 04/01/2020 4:20 AM EST 04/01/2020 4:30 AM EST Narrative Resulting Agency Comment Spec In Lab Edwardo Mccormack MD HEMATOLOGY ORDERABLE S [facility] [place] [address] * (ABNORMAL) Hemogram (04/01/2020 4:20 AM EST) White Blood Cell 9.8(H) 4.0 - 9.5 x10(3)/[facility] Red Blood Cell 3.72(L) 4.00 - 5.21 x10(6)/[facility] Hemoglobin 11.3(L) 11.7 - 15.5 gm/dL [facility] Hematocrit 32.9(L) 35.7 - 45.8 % [facility] Mean Cell Volume 88.4 82.6 - 94.4 fL [facility] Mean Cell Hemoglobin 30.4 27.1 - 32.0 pg [facility] Mean Cell Hemoglobin Concentration 34.3 31.7 - 35.0 gm/dL [facility] Platelet 320 145 - 357 x10(3)/[facility] RDW Standard Deviation 39.5 37.0 - 46.0 [facility] RDW coefficient of variation 12.2 11.5 - 14.1 % [facility] Mean Platelet Volume 10.6 7.6 - 12.9 fL [facility] NRBC% auto 0.0 % [facility] NRBC Absolute 0.000 0.000 - 0.000 x10(3)/ L [facility] Blood specimen (specimen) 04/01/2020 4:20 AM EST 04/01/2020 4:30 AM EST Narrative Resulting Agency Comment Spec In Lab Edwardo Mccormack MD HEMATOLOGY ORDERABLE S [facility] [place] [address] * (ABNORMAL) Basic Metabolic Panel (non-fasting) (04/01/2020 4:20 AM EST) Glucose 141 65 - 199 mg/dL [facility] Comment:Diabetes: >=200 mg/d L plus symptoms Blood Urea Nitrogen 11 8 - 18 mg/dL [facility] Creatinine 0.48(L) 0.70 - 1.20 mg/dL [facility] Sodium 130(L) 135 - 145 mmol/L [facility] Potassium 3.5 3.5 - 5.0 mmol/L [facility] Comment: Please note: ??Patients with WBC >100,000 may have falsely elevated Potassium levels. ??For accurate Potassium quantification in these patients send serum separator tube (gold top) for subsequent determinations. ??Contact the Clinical Chemistry Laboratory if there are any questions. Chloride 91(L) 98 - 107 mmol/L [facility] Carbon Dioxide 31 22 - 31 mmol/L [facility] Anion Gap 8 5 - 15 mmol/L [facility] Calcium 8.3(L) 8.5 - 10.5 mg/dL [facility] Est Glomerular Filtration Rate 97 >=60 mL/min/1. 73 m?? [facility] Comment: This patient? s [...] MD CHEMISTRY ORDERABL ES Performing Organization Address [facility] Co de Phone Number [facility] [place] [address] * POCT Glucose (04/01/2020 12:06 AM EST) Glucose, POC 141 65 - 199 mg/dL [facility] Comment: Supplemental ranges: <140 mg/dL before meals <180 mg/dL all other times of the day Blood specimen (specimen) 04/01/2020 12:06 AM EST 04/01/2020 12:06 AM EST Davian Carolina MD POINT OF CARE TEST ORDERABLES Performing Organization Address [facility] Phone Number [facility] [place] [address] * POCT Glucose (03/31/2020 8:52 PM EST) Glucose, POC 159 65 - 199 mg/dL [facility] Comment: Supplemental ranges: <140 mg/dL before meals <180 mg/dL all other times of the day Blood specimen (specimen) 03/31/2020 8:52 PM EST 03/31/2020 8:52 PM EST Davian Carolina MD POINT OF CARE TEST ORDERABLES Performing Organization Address [facility] Co de Phone Number [facility] [place] [address] * XR Abdomen Flat & Upright (03/31/2020 [...] ? Electronically signed by: Gabby Kong MD, [facility] ([phone]), at 03/31/2020 7:13 PM Narrative 03/31/2020 7:13 [...] below. Electronically signed by: Gabby Kong MD, [facility]([phone]), at 03/31/2020 7:13 PM Davian Carolina MD IMG DX ORDERABLES * POCT Glucose (03/31/2020 4:52 PM EST) Glucose, POC 169 65 - 199 mg/dL [facility] Comment: Supplemental ranges: <140 mg/dL before meals <180 mg/dL all other times of the day Blood specimen (specimen) 03/31/2020 4:52 PM EST 03/31/2020 4:52 PM EST Davian Carolina MD POINT OF CARE TEST ORDERABLES Performing Organization Address City/[facility]/ZIP Co de Phone Number [facility] [place] [address] * POCT Glucose (03/31/2020 12:03 PM EST) Glucose, POC 134 65 - 199 mg/dL [facility] Comment: Supplemental ranges: <140 mg/dL before meals <180 mg/dL all other times of the day Blood specimen (specimen) 03/31/2020 12:03 PM EST 03/31/2020 12:03 PM EST Davian Carolina MD POINT OF CARE TEST ORDERABLES [facility] [place] [address] * POCT Glucose (03/31/2020 7:35 AM EST) Pathologist [facility] Glucose, POC 128 65 - 199 mg/dL [facility] Comment: Supplemental ranges: <140 mg/dL before meals <180 mg/dL all other times of the day Blood specimen (specimen) 03/31/2020 7:35 AM EST 03/31/2020 7:35 AM EST Davian Carolina MD POINT OF CARE TEST ORDERABLES [facility] [place] [address] * (ABNORMAL) Differential, Automated (03/31/2020 6:36 AM EST) [facility] Neutrophil % 81.8 % [facility] Neutrophil Absolute 7.38(H) 1.70 - 6.10 x10(3)/mc L [facility] Lymph % 7.7 % [facility] Lymphocytes Abs 0.7(L) 0.9 - 3.2 x10(3)/mc L [facility] Monocyte % 6.9 % [facility] Monocyte Abs 0.6 0.3 - 0.9 x10(3)/mc L [facility] Eos % 2.7 % [facility] Eosinophils Abs 0.2 0.0 - 0.4 x10(3)/mc L [facility] Basophil % 0.3 % [facility] Baso Absolute 0.0 0.0 - 0.1 x10(3)/mc L [facility] Immature Gran % 0.60 % [facility] Comment: Immature granulocytes(IG's)percentage and absolute count will include metamyelocytes, myelocytes, and promyelocytes. Blood smears from CBCs yielding IG's will be scanned manually for concordance. If this scan disagrees with the automated IG or if promyelocytes are noted, a manual differential will be performed. Immature Gran Absolute 0.05(H) 0.00 - 0.04 x10(3)/[facility] Blood specimen (specimen) 03/31/2020 6:36 AM EST 03/31/2020 6:55 AM EST Narrative Resulting Agency Comment Spec In Lab Anjelica Jordan APRN HEMATOLOGY ORDER MAGAN [facility] [place] [address] * (ABNORMAL) Hemogram (03/31/2020 6:36 AM EST) White Blood Cell 9.0 4.0 - 9.5 x10(3)/[facility] Red Blood Cell 3.76(L) 4.00 - 5.21 x10(6)/[facility] Hemoglobin 11.4(L) 11.7 - 15.5 gm/dL [facility] Hematocrit 33.7(L) 35.7 - 45.8 % [facility] Mean Cell Volume 89.6 82.6 - 94.4 fL [facility] Mean Cell Hemoglobin 30.3 27.1 - 32.0 pg [facility] Mean Cell Hemoglobin Concentration 33.8 31.7 - 35.0 gm/dL [facility] Platelet 252 145 - 357 x10(3)/[facility] RDW Standard Deviation 41.2 37.0 - 46.0 [facility] RDW coefficient of variation 12.5 11.5 - 14.1 % [facility] Mean Platelet Volume 10.7 7.6 - 12.9 [facility] NRBC% auto 0.0 % [facility] NRBC Absolute 0.000 0.000 - 0.000 x10(3)/[facility] Blood specimen (specimen) 03/31/2020 6:36 AM EST 03/31/2020 6:55 AM EST Narrative Resulting Agency Comment Spec In Lab Anjelica Alcaraz Nikki JESUS ALBERTO HEMATOLOGY ORDER MAGAN [facility] [place] [address] * (ABNORMAL) BMP w/fasting Glucose (03/31/2020 6:36 AM EST) Glucose Fasting 115(H) 65 - 99 mg/dL [facility] Comment: ?Fasting* Glucose Interpretive [...] of Diabetes Mellitus, Position Statement from the [place] [employer]. ??Diabetes Care, Volume 33, Supplement 1, Apr 2009 Blood Urea Nitrogen 16 8 - 18 mg/dL [facility] Creatinine 0.48(L) 0.70 - 1.20 mg/dL [facility] Sodium 133(L) 135 - 145 mmol/L [facility] Potassium 3.9 3.5 - 5.0 mmol/L [facility] Comment: Please note: ??Patients with WBC >100,000 may have falsely elevated Potassium levels. ??For accurate Potassium quantification in these patients send serum separator tube (gold top) for subsequent determinations. ??Contact the Clinical Chemistry Laboratory if there are any questions. Chloride 95(L) 98 - 107 mmol/L [facility] Carbon Dioxide 29 22 - 31 mmol/L [facility] Anion Gap 9 5 - 15 mmol/L [facility] Calcium 8.7 8.5 - 10.5 mg/dL [facility] Est Glomerular Filtration Rate 97 >=60 mL/min/1. 73 m?? [facility] Comment: This patient? s [...] MD CHEMISTRY ORDERABL ES Performing Organization Address [facility]/ZIP Co de Phone Number [facility] [place] [address] * Phosphorus (03/31/2020 6:36 AM EST) Phosphorus 3.7 2.5 - 4.5 mg/dL [facility] Blood specimen (specimen) 03/31/2020 6:36 AM EST 03/31/2020 6:55 AM EST Narrative Resulting Agency Comment Spec In Lab Anjelica Jordan APRN CHEMISTRY ORDERA BLES [facility] [place] [address] * Magnesium (03/31/2020 6:36 AM EST) Magnesium 0.77 0.69 - 1.07 mmol/L [facility] Blood specimen (specimen) 03/31/2020 6:36 AM EST 03/31/2020 6:55 AM EST Narrative Resulting Agency Comment Spec In Lab Anjelica Jordan SALES ACCOUNT DIRECTOR CHEMISTRY ORDERA BLES Performing Organization Address [facility] Co de Phone Number [facility] [place] [address] * POCT Glucose (03/30/2020 8:05 PM EST) Glucose, POC 136 65 - 199 mg/dL [facility] Comment: Supplemental ranges: <140 mg/dL before meals <180 mg/dL all other times of the day Blood specimen (specimen) 03/30/2020 8:05 PM EST 03/30/2020 8:05 PM EST Davian Carolina MD POINT OF CARE TEST ORDERABLES Performing Organization Address [facility] de Phone Number [facility] [place] [address] * POCT Glucose (03/30/2020 4:55 PM EST) Glucose, POC 129 65 - 199 mg/dL [facility] Comment: Supplemental ranges: <140 mg/dL before meals <180 mg/dL all other times of the day Blood specimen (specimen) 03/30/2020 4:55 PM EST 03/30/2020 4:55 PM EST Davian Carolina MD POINT OF CARE TEST ORDERABLES Performing Organization Address [facility] Co de Phone Number [facility] [place] [address] * C-peptide (03/30/2020 1:45 PM EST) C-Peptide 1.4 0.8 - 5.2 ng/mL [facility] Blood specimen (specimen) 03/30/2020 1:45 PM EST 03/30/2020 1:52 PM EST Narrative Resulting Agency Comment Spec In Lab Katie Santamaria SALES ACCOUNT DIRECTOR CHEMISTRY ORDERABLE S Performing Organization Address [facility]/ZIP Co de Phone Number [facility] [place] [address] * POCT Glucose (03/30/2020 11:41 AM EST) Glucose, POC 156 65 - 199 mg/dL [facility] Comment: Supplemental ranges: <140 mg/dL before meals <180 mg/dL all other times of the day Blood specimen (specimen) 03/30/2020 11:41 AM EST 03/30/2020 11:41 AM EST Davian Carolina MD POINT OF CARE TEST ORDERABLES [facility] [place] [address] * POCT Glucose (03/30/2020 7:43 AM EST) Glucose, POC 160 65 - 199 mg/dL [facility] Comment: Supplemental ranges: <140 mg/dL before meals <180 mg/dL all other times of the day Blood specimen (specimen) 03/30/2020 7:43 AM EST 03/30/2020 7:43 AM EST Davian Carolina MD POINT OF CARE TEST ORDERABLES Performing Organization Address City/[facility]/ZIP Co de Phone Number [facility] [place] [address] * (ABNORMAL) Hemoglobin A1c (03/30/2020 1:20 AM EST) Hemoglobin A1c 5.8(H) 4.3 - 5.6 % [facility] Comment: Reference Range: 4.3 [...] Mellitus, Diabetes Care 2013; 36: Suppl. 1, S68-83 Estimated Average Glucose See note mg/dL [facility] Comment: Estimated Average Glucose [...] into estimated average glucose values. ??Diabetes Care 2008:31(8):7219-4703. Blood specimen (specimen) Venous Draw / Unknown 03/30/2020 1:20 AM EST 03/30/2020 8:28 AM EST Narrative Resulting Agency Comment Spec In Lab Anjelica Jordan APRN CHEMISTRY ORDERA BLES [facility] [place] [address] * (ABNORMAL) Differential, Automated (03/30/2020 1:20 AM EST) Neutrophil % 77.8 % [facility] Neutrophil Absolute 8.06(H) 1.70 - 6.10 x10(3)/mc L [facility] Lymph % 12.1 % [facility] Lymphocytes Abs 1.2 0.9 - 3.2 x10(3)/ L [facility] Monocyte % 7.0 % [facility] Monocyte Abs 0.7 0.3 - 0.9 x10(3)/[facility] Eos % 2.4 % [facility] Eosinophils Abs 0.2 0.0 - 0.4 x10(3)/[facility] Basophil % 0.2 % [facility] Baso Absolute 0.0 0.0 - 0.1 x10(3)/[facility] Immature Gran % 0.50 % [facility] Comment: Immature granulocytes(IG's)percentage and absolute count will include metamyelocytes, myelocytes, and promyelocytes. Blood smears from CBCs yielding IG's will be scanned manually for concordance. If this scan disagrees with the automated IG or if promyelocytes are noted, a manual differential will be performed. Immature Gran Absolute 0.05(H) 0.00 - 0.04 x10(3)/[facility] Blood specimen (specimen) 03/30/2020 1:20 AM EST 03/30/2020 1:33 AM EST Narrative Resulting Agency Comment Spec In Lab Anjelica Jordan APRN HEMATOLOGY ORDER MAGAN Performing Organization Address City/State/[facility] Co de Phone Number [facility] [place] [address] * (ABNORMAL) Hemogram (03/30/2020 1:20 AM EST) White Blood Cell 10.4(H) 4.0 - 9.5 x10(3)/[facility] Red Blood Cell 3.91(L) 4.00 - 5.21 x10(6)/[facility] Hemoglobin 12.0 11.7 - 15.5 gm/dL [facility] Hematocrit 34.9(L) 35.7 - 45.8 % [facility] Mean Cell Volume 89.3 82.6 - 94.4 fL [facility] Mean Cell Hemoglobin 30.7 27.1 - 32.0 pg [facility] Mean Cell Hemoglobin Concentration 34.4 31.7 - 35.0 gm/dL [facility] Platelet 231 145 - 357 x10(3)/mc L [facility] RDW Standard Deviation 40.1 37.0 - 46.0 fL [facility] RDW coefficient of variation 12.4 11.5 - 14.1 % [facility] Mean Platelet Volume 10.2 7.6 - 12.9 fL [facility] NRBC% auto 0.0 % [facility] NRBC Absolute 0.000 0.000 - 0.000 x10(3)/mc L [facility] Blood specimen (specimen) 03/30/2020 1:20 AM EST 03/30/2020 1:33 AM EST Narrative Resulting Agency Comment Spec In Lab Anjelica Jordan APRN HEMATOLOGY ORDER MAGAN [facility] [place] [address] * (ABNORMAL) BMP w/fasting Glucose (03/30/2020 1:20 AM EST) Glucose Fasting 158(H) 65 - 99 mg/dL [facility] Comment: ?Fasting* Glucose Interpretive [...] of Diabetes Mellitus, Position Statement from the [place] [employer]. ??Diabetes Care, Volume 33, Supplement 1, Apr 2009 Blood Urea Nitrogen 15 8 - 18 mg/dL [facility] Creatinine 0.40(L) 0.70 - 1.20 mg/dL [facility] Sodium 135 135 - 145 mmol/L [facility] Potassium 3.7 3.5 - 5.0 mmol/L [facility] Comment: Please note: ??Patients with WBC >100,000 may have falsely elevated Potassium levels. ??For accurate Potassium quantification in these patients send serum separator tube (gold top) for subsequent determinations. ??Contact the Clinical Chemistry Laboratory if there are any questions. Chloride 98 98 - 107 mmol/L [facility] Carbon Dioxide 28 22 - 31 mmol/L [facility] Anion Gap 9 5 - 15 mmol/L [facility] Calcium 8.2(L) 8.5 - 10.5 mg/dL [facility] Est Glomerular Filtration Rate 103 >=60 mL/min/1. 73 m?? [facility] Comment: This patient? s [...] Lab Davian Carolina MD CHEMISTRY ORDERABL ES [facility] [place] [address] * Phosphorus (03/30/2020 1:20 AM EST) Phosphorus 3.3 2.5 - 4.5 mg/dL [facility] Blood specimen (specimen) 03/30/2020 1:20 AM EST 03/30/2020 1:33 AM EST Narrative Resulting Agency Comment Spec In Lab Anjelica Jordan SALES ACCOUNT DIRECTOR CHEMISTRY ORDERA BLES Performing Organization Address [facility] Co de Phone Number [facility] [place] [address] * Magnesium (03/30/2020 1:20 AM EST) Magnesium 0.83 0.69 - 1.07 mmol/L [facility] Blood specimen (specimen) 03/30/2020 1:20 AM EST 03/30/2020 1:33 AM EST Narrative Resulting Agency Comment Spec In Lab Anjelica Jordan SALES ACCOUNT DIRECTOR CHEMISTRY ORDERA BLES Performing Organization Address [facility] de Phone Number [facility] [place] [address] * POCT Glucose (03/29/2020 8:57 PM EST) Glucose, POC 154 65 - 199 mg/dL [facility] Comment: Supplemental ranges: <140 mg/dL before meals <180 mg/dL all other times of the day Blood specimen (specimen) 03/29/2020 8:57 PM EST 03/29/2020 8:57 PM EST Davian Carolina MD POINT OF CARE TEST ORDERABLES Performing Organization Address [facility] Co de Phone Number [facility] [place] [address] * POCT Glucose (03/29/2020 4:13 PM EST) Glucose, POC 181 65 - 199 mg/dL [facility] Comment: Supplemental ranges: <140 mg/dL before meals <180 mg/dL all other times of the day Blood specimen (specimen) 03/29/2020 4:13 PM EST 03/29/2020 4:13 PM EST Davian Carolina MD POINT OF CARE TEST ORDERABLES Performing Organization Address [facility] Co de Phone Number [facility] [place] [address] * POCT Glucose (03/29/2020 12:25 PM EST) Glucose, POC 196 65 - 199 mg/dL [facility] Comment: Supplemental ranges: <140 mg/dL before meals <180 mg/dL all other times of the day Blood specimen (specimen) 03/29/2020 12:25 PM EST 03/29/2020 12:25 PM EST Davian Carolina MD POINT OF CARE TEST ORDERABLES Performing Organization Address [facility] Co de Phone Number [facility] [place] [address] * POCT Glucose (03/29/2020 8:24 AM EST) Glucose, POC 171 65 - 199 mg/dL [facility] Comment: Supplemental ranges: <140 mg/dL before meals <180 mg/dL all other times of the day Blood specimen (specimen) 03/29/2020 8:24 AM EST 03/29/2020 8:24 AM EST Davian Carolina MD POINT OF CARE TEST ORDERABLES Performing Organization Address [facility] Co de Phone Number [facility] [place] [address] * POCT Glucose (03/29/2020 4:22 AM EST) Glucose, POC 151 65 - 199 mg/dL [facility] Comment: Supplemental ranges: <140 mg/dL before meals <180 mg/dL all other times of the day Blood specimen (specimen) 03/29/2020 4:22 AM EST 03/29/2020 4:22 AM EST Davian Carolina MD POINT OF CARE TEST ORDERABLES Performing Organization Address [facility] Phone Number [facility] [place] [address] * Phosphorus (03/29/2020 2:30 AM EST) Phosphorus 3.0 2.5 - 4.5 mg/dL [facility] Blood specimen (specimen) 03/29/2020 2:30 AM EST 03/29/2020 2:46 AM EST Narrative Resulting Agency Comment Spec In Lab Davian Carolina MD CHEMISTRY ORDERABL ES Performing Organization Address [facility] Phone Number [facility] [place] [address] * Magnesium (03/29/2020 2:30 AM EST) Pathologist [facility] Magnesium 0.86 0.69 - 1.07 mmol/L [facility] Blood specimen (specimen) 03/29/2020 2:30 AM EST 03/29/2020 2:46 AM EST Narrative Resulting Agency Comment Spec In Lab Davian Carolina MD CHEMISTRY ORDERABL ES Performing Organization Address [facility] Phone Number [facility] [place] [address] * (ABNORMAL) Basic Metabolic Panel (non-fasting) (03/29/2020 2:30 AM EST) Glucose 163 65 - 199 mg/dL [facility] Comment:Diabetes: >=200 mg/d L plus symptoms Blood Urea Nitrogen 18 8 - 18 mg/dL [facility] Creatinine 0.40(L) 0.70 - 1.20 mg/dL [facility] Sodium 139 135 - 145 mmol/L [facility] Potassium 3.6 3.5 - 5.0 mmol/L [facility] Comment: Please note: ??Patients with WBC >100,000 may have falsely elevated Potassium levels. ??For accurate Potassium quantification in these patients send serum separator tube (gold top) for subsequent determinations. ??Contact the Clinical Chemistry Laboratory if there are any questions. Chloride 104 98 - 107 mmol/L [facility] Carbon Dioxide 28 22 - 31 mmol/L [facility] Anion Gap 7 5 - 15 mmol/L [facility] Calcium 7.9(L) 8.5 - 10.5 mg/dL [facility] Est Glomerular Filtration Rate 103 >=60 mL/min/1. 73 m?? [facility] Comment: This patient? s [...] Lab Davian Carolina MD CHEMISTRY ORDERABL ES [facility] [place] [address] * Differential, Automated (03/29/2020 1:20 AM EST) Neutrophil % 71.0 % [facility] Neutrophil Absolute 4.85 1.70 - 6.10 x10(3)/[facility] Lymph % 15.4 % [facility] Lymphocytes Abs 1.0 0.9 - 3.2 x10(3)/[facility] Monocyte % 10.1 % [facility] Monocyte Abs 0.7 0.3 - 0.9 x10(3)/[facility] Eos % 2.6 % [facility] Eosinophils Abs 0.2 0.0 - 0.4 x10(3)/[facility] Basophil % 0.3 % [facility] Baso Absolute 0.0 0.0 - 0.1 x10(3)/[facility] Immature Gran % 0.60 % [facility] Comment: Immature granulocytes(IG's)percentage and absolute count will include metamyelocytes, myelocytes, and promyelocytes. Blood smears from CBCs yielding IG's will be scanned manually for concordance. If this scan disagrees with the automated IG or if promyelocytes are noted, a manual differential will be performed. Immature Gran Absolute 0.04 0.00 - 0.04 x10(3)/[facility] Blood specimen (specimen) 03/29/2020 1:20 AM EST 03/29/2020 1:42 AM EST Narrative Resulting Agency Comment Spec In Lab Anjelica Jordan APRN HEMATOLOGY ORDER MAGAN [facility] [place] [address] * (ABNORMAL) Hemogram (03/29/2020 1:20 AM EST) White Blood Cell 6.8 4.0 - 9.5 x10(3)/mc L [facility] Red Blood Cell 3.37(L) 4.00 - 5.21 x10(6)/mc L [facility] Hemoglobin 11.3(L) 11.7 - 15.5 gm/dL [facility] Hematocrit 31.8(L) 35.7 - 45.8 % [facility] Mean Cell Volume 94.4 82.6 - 94.4 fL [facility] Mean Cell Hemoglobin 33.5(H) 27.1 - 32.0 pg [facility] Mean Cell Hemoglobin Concentration 35.5(H) 31.7 - 35.0 gm/dL [facility] Platelet 176 145 - 357 x10(3)/mc L [facility] RDW Standard Deviation 43.8 37.0 - 46.0 fL [facility] RDW coefficient of variation 12.6 11.5 - 14.1 % [facility] Mean Platelet Volume 10.4 7.6 - 12.9 fL [facility] NRBC% auto 0.0 % [facility] NRBC Absolute 0.000 0.000 - 0.000 x10(3)/mc L [facility] Blood specimen (specimen) 03/29/2020 1:20 AM EST 03/29/2020 1:42 AM EST Narrative Resulting Agency Comment Spec In Lab Anjelica Jordan APRN HEMATOLOGY ORDER MAGAN Performing Organization Address City/[facility]/ZIP Co de Phone Number [facility] [place] [address] * POCT Glucose (03/29/2020 12:05 AM EST) Glucose, POC 142 65 - 199 mg/dL [facility] Comment: Supplemental ranges: <140 mg/dL before meals <180 mg/dL all other times of the day Blood specimen (specimen) 03/29/2020 12:05 AM EST 03/29/2020 12:05 AM EST Davian Carolina MD POINT OF CARE TEST ORDERABLES [facility] [place] [address] * POCT Glucose (03/28/2020 7:28 PM EST) Glucose, POC 174 65 - 199 mg/dL [facility] Comment: Supplemental ranges: <140 mg/dL before meals <180 mg/dL all other times of the day Blood specimen (specimen) 03/28/2020 7:28 PM EST 03/28/2020 7:28 PM EST Davian Carolina MD POINT OF CARE TEST ORDERABLES Performing Organization Address [facility] de Phone Number [facility] [place] [address] * POCT Glucose (03/28/2020 4:01 PM EST) Glucose, POC 190 65 - 199 mg/dL [facility] Comment: Supplemental ranges: <140 mg/dL before meals <180 mg/dL all other times of the day Blood specimen (specimen) 03/28/2020 4:01 PM EST 03/28/2020 4:01 PM EST Davian Carolina MD POINT OF CARE TEST ORDERABLES Performing Organization Address [facility] Phone Number [facility] [place] [address] * POCT Glucose (03/28/2020 11:34 AM EST) Glucose, POC 188 65 - 199 mg/dL [facility] Comment: Supplemental ranges: <140 mg/dL before meals <180 mg/dL all other times of the day Blood specimen (specimen) 03/28/2020 11:34 AM EST 03/28/2020 11:34 AM EST Davian Carolina MD POINT OF CARE TEST ORDERABLES Performing Organization Address [facility] de Phone Number [facility] [place] [address] * POCT Glucose (03/28/2020 7:30 AM EST) Glucose, POC 180 65 - 199 mg/dL [facility] Comment: Supplemental ranges: <140 mg/dL before meals <180 mg/dL all other times of the day Blood specimen (specimen) 03/28/2020 7:30 AM EST 03/28/2020 7:30 AM EST Davian Carolina MD POINT OF CARE TEST ORDERABLES Performing Organization Address [facility] de Phone Number [facility] [place] [address] * Amylase Level Body Fluid KHRIS Drain (03/28/2020 4:00 AM EST) Amylase, Fluid 12 unit/L [facility] Comment: No reference range is available for the specimen type submitted. ??The performance of this assay for the submitted type has not been validated and results should be interpreted accordingly and with regard to the patient's clinical status. Amylase BF Type KHRIS Drain [facility] KHRIS Drain 03/28/2020 4:00 AM EST 03/28/2020 4:16 AM EST Narrative Resulting Agency Comment Spec In Lab Davian Carolina MD BODY FLUIDS AND ST OOLS ORDERABLES Performing Organization Address [facility] Phone Number [facility] [place] [address] * (ABNORMAL) POCT Glucose (03/28/2020 3:57 AM EST) Pathologist [facility] Glucose, POC 200(H) 65 - 199 mg/dL [facility] Comment: Supplemental ranges: <140 mg/dL before meals <180 mg/dL all other times of the day Blood specimen (specimen) 03/28/2020 3:57 AM EST 03/28/2020 3:57 AM EST Davian Carolina MD POINT OF CARE TEST ORDERABLES Performing Organization Address [facility] Co de Phone Number [facility] [place] [address] * Differential, Automated (03/28/2020 1:45 AM EST) Neutrophil % 69.0 % [facility] Neutrophil Absolute 4.74 1.70 - 6.10 x10(3)/mcL [facility] Lymph % 16.0 % [facility] Lymphocytes Abs 1.1 0.9 - 3.2 x10(3)/[facility] Monocyte % 10.3 % [facility] Monocyte Abs 0.7 0.3 - 0.9 x10(3)/[facility] Eos % 4.1 % [facility] Eosinophils Abs 0.3 0.0 - 0.4 x10(3)/[facility] Basophil % 0.3 % [facility] Baso Absolute 0.0 0.0 - 0.1 x10(3)/[facility] Immature Gran % 0.30 % [facility] Comment: Immature granulocytes(IG's)percentage and absolute count will include metamyelocytes, myelocytes, and promyelocytes. Blood smears from CBCs yielding IG's will be scanned manually for concordance. If this scan disagrees with the automated IG or if promyelocytes are noted, a manual differential will be performed. Immature Gran Absolute 0.02 0.00 - 0.04 x10(3)/[facility] Blood specimen (specimen) 03/28/2020 1:45 AM EST 03/28/2020 1:52 AM EST Narrative Resulting Agency Comment Spec In Lab Anjelica Jordan APRN HEMATOLOGY ORDER MAGAN [facility] [place] [address] * (ABNORMAL) Hemogram (03/28/2020 1:45 AM EST) White Blood Cell 6.9 4.0 - 9.5 x10(3)/mc L [facility] Red Blood Cell 3.68(L) 4.00 - 5.21 x10(6)/mc L [facility] Hemoglobin 11.3(L) 11.7 - 15.5 gm/dL [facility] Hematocrit 33.4(L) 35.7 - 45.8 % [facility] Mean Cell Volume 90.8 82.6 - 94.4 fL [facility] Mean Cell Hemoglobin 30.7 27.1 - 32.0 pg [facility] Mean Cell Hemoglobin Concentration 33.8 31.7 - 35.0 gm/dL [facility] Platelet 205 145 - 357 x10(3)/mc L [facility] RDW Standard Deviation 40.5 37.0 - 46.0 fL [facility] RDW coefficient of variation 12.1 11.5 - 14.1 % [facility] Mean Platelet Volume 10.0 7.6 - 12.9 fL [facility] NRBC% auto 0.0 % [facility] NRBC Absolute 0.000 0.000 - 0.000 x10(3)/mc L [facility] Blood specimen (specimen) 03/28/2020 1:45 AM EST 03/28/2020 1:52 AM EST Narrative Resulting Agency Comment Spec In Lab Anjelica Jordan APRN HEMATOLOGY ORDER MAGAN [facility] [place] [id number] * (ABNORMAL) BMP w/fasting Glucose (03/28/2020 1:45 AM EST) Glucose Fasting 165(H) 65 - 99 mg/dL [facility] Comment: ?Fasting* Glucose Interpretive [...] of Diabetes Mellitus, Position Statement from the [place] [employer]. ??Diabetes Care, Volume 33, Supplement 1, Apr 2009 Blood Urea Nitrogen 17 8 - 18 mg/dL [facility] Creatinine 0.46(L) 0.70 - 1.20 mg/dL [facility] Sodium 139 135 - 145 mmol/L [facility] Potassium 3.7 3.5 - 5.0 mmol/L [facility] Comment: Please note: ??Patients with WBC >100,000 may have falsely elevated Potassium levels. ??For accurate Potassium quantification in these patients send serum separator tube (gold top) for subsequent determinations. ??Contact the Clinical Chemistry Laboratory if there are any questions. Chloride 103 98 - 107 mmol/L [facility] Carbon Dioxide 27 22 - 31 mmol/L [facility] Anion Gap 9 5 - 15 mmol/L [facility] Calcium 8.4(L) 8.5 - 10.5 mg/dL [facility] Est Glomerular Filtration Rate 99 >=60 mL/min/1. 73 m?? [facility] Comment: This patient? s [...] Lab Davian Carolina MD CHEMISTRY ORDERABL ES [facility] [place] [address] * Phosphorus (03/28/2020 1:45 AM EST) Phosphorus 2.9 2.5 - 4.5 mg/dL [facility] Blood specimen (specimen) 03/28/2020 1:45 AM EST 03/28/2020 1:52 AM EST Narrative Resulting Agency Comment Spec In Lab Anjelica Jordan SALES ACCOUNT DIRECTOR CHEMISTRY ORDERA BLES Performing Organization Address [facility] de Phone Number [facility] [place] [address] * Magnesium (03/28/2020 1:45 AM EST) Magnesium 0.87 0.69 - 1.07 mmol/L [facility] Blood specimen (specimen) 03/28/2020 1:45 AM EST 03/28/2020 1:52 AM EST Narrative Resulting Agency Comment Spec In Lab Anjelica Jordan SALES ACCOUNT DIRECTOR CHEMISTRY ORDERA BLES Performing Organization Address [facility] Phone Number [facility] [place] [address] * (ABNORMAL) Amylase (03/28/2020 1:45 AM EST) Amylase 18(L) 28 - 100 unit/L [facility] Blood specimen (specimen) 03/28/2020 1:45 AM EST 03/28/2020 1:52 AM EST Narrative Resulting Agency Comment Spec In Lab Anjelica Jordan SALES ACCOUNT DIRECTOR CHEMISTRY ORDERA BLES Performing Organization Address [facility] Phone Number [facility] [place] [address] * POCT Glucose (03/28/2020 12:03 AM EST) Glucose, POC 157 65 - 199 mg/dL [facility] Comment: Supplemental ranges: <140 mg/dL before meals <180 mg/dL all other times of the day Blood specimen (specimen) 03/28/2020 12:03 AM EST 03/28/2020 12:03 AM EST Davian Carolina MD POINT OF CARE TEST ORDERABLES Performing Organization Address [facility] Co de Phone Number [facility] [place] [address] * POCT Glucose (03/27/2020 8:06 PM EST) Glucose, POC 84 65 - 199 mg/dL [facility] Comment: Supplemental ranges: <140 mg/dL before meals <180 mg/dL all other times of the day Blood specimen (specimen) 03/27/2020 8:06 PM EST 03/27/2020 8:06 PM EST Davian Carolina MD POINT OF CARE TEST ORDERABLES Performing Organization Address [facility] Co de Phone Number [facility] [place] [address] * POCT Glucose (03/27/2020 4:16 PM EST) Glucose, POC 190 65 - 199 mg/dL [facility] Comment: Supplemental ranges: <140 mg/dL before meals <180 mg/dL all other times of the day Blood specimen (specimen) 03/27/2020 4:16 PM EST 03/27/2020 4:16 PM EST Davian Carolina MD POINT OF CARE TEST ORDERABLES Performing Organization Address [facility] Co de Phone Number [facility] [place] [address] * POCT Glucose (03/27/2020 11:28 AM EST) Glucose, POC 92 65 - 199 mg/dL [facility] Comment: Supplemental ranges: <140 mg/dL before meals <180 mg/dL all other times of the day Blood specimen (specimen) 03/27/2020 11:28 AM EST 03/27/2020 11:28 AM EST Davian Carolina MD POINT OF CARE TEST ORDERABLES Performing Organization Address [facility] Co de Phone Number [facility] [place] [address] * POCT Glucose (03/27/2020 7:52 AM EST) Glucose, POC 71 65 - 199 mg/dL [facility] Comment: Supplemental ranges: <140 mg/dL before meals <180 mg/dL all other times of the day Blood specimen (specimen) 03/27/2020 7:52 AM EST 03/27/2020 7:52 AM EST Davian Carolina MD POINT OF CARE TEST ORDERABLES Performing Organization Address [facility] Co de Phone Number [facility] [place] [address] * POCT Glucose (03/27/2020 4:12 AM EST) Glucose, POC 74 65 - 199 mg/dL [facility] Comment: Supplemental ranges: <140 mg/dL before meals <180 mg/dL all other times of the day Blood specimen (specimen) 03/27/2020 4:12 AM EST 03/27/2020 4:12 AM EST Davian Carolina MD POINT OF CARE TEST ORDERABLES Performing Organization Address [facility] Co de Phone Number [facility] [place] [address] * Amylase Level Body Fluid KHRIS Drain (03/27/2020 3:28 AM EST) Amylase, Fluid 327 unit/L [facility] Comment: No reference range is available for the specimen type submitted. ??The performance of this assay for the submitted type has not been validated and results should be interpreted accordingly and with regard to the patient's clinical status. Amylase BF Type KHRIS Drain [facility] KHRIS Drain 03/27/2020 3:28 AM EST 03/27/2020 5:32 AM EST Narrative Resulting Agency Comment Spec In Lab Davian Carolina MD BODY FLUIDS AND ST OOLS ORDERABLES Performing Organization Address [facility]/[place] [address] * Differential, Automated (03/27/2020 3:20 AM EST) Neutrophil % 66.9 % [facility] Neutrophil Absolute 5.08 1.70 - 6.10 x10(3)/[facility] Lymph % 18.2 % [facility] Lymphocytes Abs 1.4 0.9 - 3.2 x10(3)/[facility] Monocyte % 9.5 % [facility] Monocyte Abs 0.7 0.3 - 0.9 x10(3)/[facility] Eos % 4.6 % [facility] Eosinophils Abs 0.4 0.0 - 0.4 x10(3)/[facility] Basophil % 0.5 % [facility] Baso Absolute 0.0 0.0 - 0.1 x10(3)/[facility] Immature Gran % 0.30 % [facility] Comment: Immature granulocytes(IG's)percentage and absolute count will include metamyelocytes, myelocytes, and promyelocytes. Blood smears from CBCs yielding IG's will be scanned manually for concordance. If this scan disagrees with the automated IG or if promyelocytes are noted, a manual differential will be performed. Immature Gran Absolute 0.02 0.00 - 0.04 x10(3)/[facility] LABORATORY Blood specimen (specimen) 03/27/2020 3:20 AM EST 03/27/2020 3:35 AM EST Narrative Resulting Agency Comment Spec In Lab Anjelica Jordan APRN HEMATOLOGY ORDER MAGAN Performing Organization Address City/[facility]/[place] [address] * (ABNORMAL) Hemogram (03/27/2020 3:20 AM EST) White Blood Cell 7.6 4.0 - 9.5 x10(3)/ L [facility] Red Blood Cell 3.82(L) 4.00 - 5.21 x10(6)/ L [facility] Hemoglobin 11.7 11.7 - 15.5 gm/dL [facility] Hematocrit 35.5(L) 35.7 - 45.8 % [facility] Mean Cell Volume 92.9 82.6 - 94.4 fL [facility] Mean Cell Hemoglobin 30.6 27.1 - 32.0 pg [facility] Mean Cell Hemoglobin Concentration 33.0 31.7 - 35.0 gm/dL [facility] Platelet 198 145 - 357 x10(3)/[facility] LABORATORY RDW Standard Deviation 42.6 37.0 - 46.0 fL [facility] RDW coefficient of variation 12.5 11.5 - 14.1 % [facility] Mean Platelet Volume 10.1 7.6 - 12.9 fL [facility] NRBC% auto 0.0 % [facility]ORY NRBC Absolute 0.000 0.000 - 0.000 x10(3)/[facility] LABORATORY Blood specimen (specimen) 03/27/2020 3:20 AM EST 03/27/2020 3:35 AM EST Narrative Resulting Agency Comment Spec In Lab Anjelica Jordan APRN HEMATOLOGY ORDER MAGAN [facility] [place] [address] * Phosphorus (03/27/2020 3:20 AM EST) Phosphorus 3.1 2.5 - 4.5 mg/dL [facility] Blood specimen (specimen) 03/27/2020 3:20 AM EST 03/27/2020 3:35 AM EST Narrative Resulting Agency Comment Spec In Lab Anjelica Lissa Nikki SALES ACCOUNT DIRECTOR CHEMISTRY ORDERA BLES Performing Organization Address City/[facility]/ZIP Co de Phone Number [facility] [place] [address] * Magnesium (03/27/2020 3:20 AM EST) Pathologist [facility] Magnesium 0.87 0.69 - 1.07 mmol/L [facility] Blood specimen (specimen) 03/27/2020 3:20 AM EST 03/27/2020 3:35 AM EST Narrative Resulting Agency Comment Spec In Lab Anjelica Jordan SALES ACCOUNT DIRECTOR CHEMISTRY ORDERA BLES Performing Organization Address [facility] Co de Phone Number [facility] [place] [address] * (ABNORMAL) Comprehensive metabolic panel (non-fasting) (03/27/2020 3:20 AM EST) Pathologist [facility] Glucose 73 65 - 199 mg/dL [facility] Comment:Diabetes: >=200 mg/d L plus symptoms Blood Urea Nitrogen 12 8 - 18 mg/dL [facility] Comment:result rechecked-bm Creatinine 0.49(L) 0.70 - 1.20 mg/dL [facility] Sodium 139 135 - 145 mmol/L [facility] Potassium 3.8 3.5 - 5.0 mmol/L [facility] Comment: Please note: ??Patients with WBC >100,000 may have falsely elevated Potassium levels. ??For accurate Potassium quantification in these patients send serum separator tube (gold top) for subsequent determinations. ??Contact the Clinical Chemistry Laboratory if there are any questions. Chloride 101 98 - 107 mmol/L [facility] Carbon Dioxide 27 22 - 31 mmol/L [facility] Anion Gap 11 5 - 15 mmol/L [facility] Calcium 8.5 8.5 - 10.5 mg/dL [facility] Protein, Total 5.4(L) 6.1 - 8.0 gm/dL [facility] Albumin 3.2 3.2 - 5.2 gm/dL [facility] Aspartate Aminotransferase 77(H) 0 - 30 unit/L [facility] Alanine Aminotransferase 160(H) 0 - 30 unit/L [facility] Alkaline Phosphatase 58 35 - 105 unit/L [facility] Bilirubin, Total 0.4 0.2 - 1.3 mg/dL [facility] Est Glomerular Filtration Rate 97 >=60 mL/min/1. 73 m?? [facility] Comment: This patient? s [...] Agency Comment Spec In Lab Anjelica Jordan SALES ACCOUNT DIRECTOR CHEMISTRY ORDERA BLES Performing Organization Address [facility] Co de Phone Number [facility] [place] [address] * (ABNORMAL) Amylase (03/27/2020 3:20 AM EST) Amylase 25(L) 28 - 100 unit/L [facility] Blood specimen (specimen) 03/27/2020 3:20 AM EST 03/27/2020 3:35 AM EST Narrative Resulting Agency Comment Spec In Lab Anjelica Jordan SALES ACCOUNT DIRECTOR CHEMISTRY ORDERA BLES Performing Organization Address [facility]/ZIP Co de Phone Number [facility] [place] [address] * POCT Glucose (03/27/2020 3:19 AM EST) Glucose, POC 73 65 - 199 mg/dL [facility] Comment: Supplemental ranges: <140 mg/dL before meals <180 mg/dL all other times of the day Blood specimen (specimen) 03/27/2020 3:19 AM EST 03/27/2020 3:19 AM EST Davian Carolina MD POINT OF CARE TEST ORDERABLES [facility] [place] [address] * POCT Glucose (03/27/2020 12:03 AM EST) Glucose, POC 93 65 - 199 mg/dL [facility] Comment: Supplemental ranges: <140 mg/dL before meals <180 mg/dL all other times of the day Blood specimen (specimen) 03/27/2020 12:03 AM EST 03/27/2020 12:03 AM EST Davian Carolina MD POINT OF CARE TEST ORDERABLES [facility] [place] [address] * POCT Glucose (03/26/2020 9:10 PM EST) Glucose, POC 96 65 - 199 mg/dL [facility] Comment: Supplemental ranges: <140 mg/dL before meals <180 mg/dL all other times of the day Blood specimen (specimen) 03/26/2020 9:10 PM EST 03/26/2020 9:10 PM EST Davian Carolina MD POINT OF CARE TEST ORDERABLES [facility] [place] [address] * POCT Glucose (03/26/2020 7:52 PM EST) Glucose, POC 74 65 - 199 mg/dL [facility] Comment: Supplemental ranges: <140 mg/dL before meals <180 mg/dL all other times of the day Blood specimen (specimen) 03/26/2020 7:52 PM EST 03/26/2020 7:52 PM EST Davian Carolina MD POINT OF CARE TEST ORDERABLES [facility] [place] [address] * POCT Glucose (03/26/2020 3:59 PM EST) Glucose, POC 87 65 - 199 mg/dL [facility] Comment: Supplemental ranges: <140 mg/dL before meals <180 mg/dL all other times of the day Blood specimen (specimen) 03/26/2020 3:59 PM EST 03/26/2020 3:59 PM EST Davian Carolina MD POINT OF CARE TEST ORDERABLES [facility] [place] [address] * POCT Glucose (03/26/2020 11:39 AM EST) Glucose, POC 87 65 - 199 mg/dL [facility] Comment: Supplemental ranges: <140 mg/dL before meals <180 mg/dL all other times of the day Blood specimen (specimen) 03/26/2020 11:39 AM EST 03/26/2020 11:39 AM EST Davian Carolina MD POINT OF CARE TEST ORDERABLES [facility] [place] [address] * CT Angiogram Abdomen w Contrast (03/26/2020 [...] signed by: Raimundo Mccurdy MD, [facility] ([phone]), at 03/26/2020 11:23 AM Narrative 03/26/2020 11:23 [...] signed by: Raimundo Mccurdy MD, [facility]([phone]), at 03/26/2020 11:23 AM Davian Carolina MD IMG CT ORDERABLES * POCT Glucose (03/26/2020 7:32 AM EST) Glucose, POC 109 65 - 199 mg/dL [facility] Comment: Supplemental ranges: <140 mg/dL before meals <180 mg/dL all other times of the day Blood specimen (specimen) 03/26/2020 7:32 AM EST 03/26/2020 7:32 AM EST Davian Carolina MD POINT OF CARE TEST ORDERABLES Performing Organization Address [facility]/ZIP Co de Phone Number [facility] [place] [address] * POCT Glucose (03/26/2020 3:16 AM EST) Glucose, POC 134 65 - 199 mg/dL [facility] Comment: Supplemental ranges: <140 mg/dL before meals <180 mg/dL all other times of the day Blood specimen (specimen) 03/26/2020 3:16 AM EST 03/26/2020 3:16 AM EST Davian Carolina MD POINT OF CARE TEST ORDERABLES Performing Organization Address City/[facility]/ZIP Co de Phone Number [facility] [place] [address] * (ABNORMAL) Differential, Automated (03/26/2020 1:45 AM EST) Neutrophil % 79.2 % [facility] Neutrophil Absolute 7.42(H) 1.70 - 6.10 x10(3)/[facility] LABORATORY Lymph % 11.3 % [facility] Lymphocytes Abs 1.1 0.9 - 3.2 x10(3)/[facility] LABORATORY Monocyte % 8.3 % [facility] Monocyte Abs 0.8 0.3 - 0.9 x10(3)/[facility] LABORATORY Eos % 0.6 % [facility] Eosinophils Abs 0.1 0.0 - 0.4 x10(3)/[facility] LABORATORY Basophil % 0.3 % [facility] Baso Absolute 0.0 0.0 - 0.1 x10(3)/[facility] LABORATORY Immature Gran % 0.30 % [facility] Comment: Immature granulocytes(IG's)percentage and absolute count will include metamyelocytes, myelocytes, and promyelocytes. Blood smears from CBCs yielding IG's will be scanned manually for concordance. If this scan disagrees with the automated IG or if promyelocytes are noted, a manual differential will be performed. Immature Gran Absolute 0.03 0.00 - 0.04 x10(3)/[facility] LABORATORY Blood specimen (specimen) 03/26/2020 1:45 AM EST 03/26/2020 1:56 AM EST Narrative Resulting Agency Comment Spec In Lab Anjelica Jordan APRN HEMATOLOGY ORDER MAGAN [facility] [place] [address] * (ABNORMAL) Hemogram (03/26/2020 1:45 AM EST) White Blood Cell 9.4 4.0 - 9.5 x10(3)/[facility] LABORAT[facility] Red Blood Cell 3.74(L) 4.00 - 5.21 x10(6)/[facility] Hemoglobin 11.4(L) 11.7 - 15.5 gm/dL [facility] Hematocrit 34.3(L) 35.7 - 45.8 % [facility] Mean Cell Volume 91.7 82.6 - 94.4 fL [facility] Mean Cell Hemoglobin 30.5 27.1 - 32.0 pg [facility] Mean Cell Hemoglobin Concentration 33.2 31.7 - 35.0 gm/dL [facility] Platelet 168 145 - 357 x10(3)/mc L [facility] RDW Standard Deviation 42.4 37.0 - 46.0 fL [facility] RDW coefficient of variation 12.6 11.5 - 14.1 % [facility] Mean Platelet Volume 10.2 7.6 - 12.9 fL [facility] NRBC% auto 0.0 % [facility] NRBC Absolute 0.000 0.000 - 0.000 x10(3)/mc L [facility] Blood specimen (specimen) 03/26/2020 1:45 AM EST 03/26/2020 1:56 AM EST Narrative Resulting Agency Comment Spec In Lab Anjelica Jordan APRN HEMATOLOGY ORDER MAGAN Performing Organization Address City/[facility]/ZIP Co de Phone Number [facility] [place] [address] * (ABNORMAL) Phosphorus (03/26/2020 1:45 AM EST) Phosphorus 2.3(L) 2.5 - 4.5 mg/dL [facility] Blood specimen (specimen) 03/26/2020 1:45 AM EST 03/26/2020 1:56 AM EST Narrative Resulting Agency Comment Spec In Lab Anjelica Jordan SALES ACCOUNT DIRECTOR CHEMISTRY ORDERA BLES Performing Organization Address City/[facility]/ZIP Co de Phone Number [facility] [place] [address] * Magnesium (03/26/2020 1:45 AM EST) Magnesium 0.82 0.69 - 1.07 mmol/L [facility] Blood specimen (specimen) 03/26/2020 1:45 AM EST 03/26/2020 1:56 AM EST Narrative Resulting Agency Comment Spec In Lab Anjelica Jordan APRN CHEMISTRY ORDERA BLES [facility] [place] [address] * (ABNORMAL) Comprehensive metabolic panel (non-fasting) (03/26/2020 1:45 AM EST) Glucose 131 65 - 199 mg/dL [facility] Comment:Diabetes: >=200 mg/d L plus symptoms Blood Urea Nitrogen 6(L) 8 - 18 mg/dL [facility] Creatinine 0.54(L) 0.70 - 1.20 mg/dL [facility] Sodium 139 135 - 145 mmol/L [facility] Potassium 3.4(L) 3.5 - 5.0 mmol/L [facility] Comment: Please note: ??Patients with WBC >100,000 may have falsely elevated Potassium levels. ??For accurate Potassium quantification in these patients send serum separator tube (gold top) for subsequent determinations. ??Contact the Clinical Chemistry Laboratory if there are any questions. Chloride 98 98 - 107 mmol/L [facility] Carbon Dioxide 29 22 - 31 mmol/L [facility] Anion Gap 12 5 - 15 mmol/L [facility] Calcium 8.6 8.5 - 10.5 mg/dL [facility] Protein, Total 5.5(L) 6.1 - 8.0 gm/dL [facility] Albumin 3.3 3.2 - 5.2 gm/dL [facility] Aspartate Aminotransferase 166(H) 0 - 30 unit/L [facility] Alanine Aminotransferase 240(H) 0 - 30 unit/L [facility] Alkaline Phosphatase 60 35 - 105 unit/L [facility] Bilirubin, Total 0.6 0.2 - 1.3 mg/dL [facility] Est Glomerular Filtration Rate 94 >=60 mL/min/1. 73 m?? [facility] Comment: This patient? s [...] Agency Comment Spec In Lab Anjelica Jordan SALES ACCOUNT DIRECTOR CHEMISTRY ORDERA BLES Performing Organization Address City/[facility]/ZIP Co de Phone Number [facility] [place] [address] * (ABNORMAL) Amylase (03/26/2020 1:45 AM EST) Amylase 22(L) 28 - 100 unit/L [facility] Blood specimen (specimen) 03/26/2020 1:45 AM EST 03/26/2020 1:56 AM EST Narrative Resulting Agency Comment Spec In Lab Anjelica Jordan SALES ACCOUNT DIRECTOR CHEMISTRY ORDERA BLES Performing Organization Address City/[facility]/ZIP Co de Phone Number [facility] [place] [address] * Amylase Level Body Fluid KHRIS Drain (03/26/2020 1:36 AM EST) Amylase, Fluid 15 unit/L [facility] Comment: No reference range is available for the specimen type submitted. ??The performance of this assay for the submitted type has not been validated and results should be interpreted accordingly and with regard to the patient's clinical status. Amylase BF Type KHRIS Drain [facility] KHRIS Drain 03/26/2020 1:36 AM EST 03/26/2020 1:58 AM EST Narrative Resulting Agency Comment Spec In Lab Davian Carolina MD BODY FLUIDS AND ST OOLS ORDERABLES [facility] [place] [address] * POCT Glucose (03/25/2020 11:11 PM EST) Glucose, POC 128 65 - 199 mg/dL [facility] Comment: Supplemental ranges: <140 mg/dL before meals <180 mg/dL all other times of the day Blood specimen (specimen) 03/25/2020 11:11 PM EST 03/25/2020 11:11 PM EST Davian Carolina MD POINT OF CARE TEST ORDERABLES Performing Organization Address City/[facility]/ZIP Co de Phone Number [facility] [place] [address] * POCT Glucose (03/25/2020 7:53 PM EST) Glucose, POC 142 65 - 199 mg/dL [facility] Comment: Supplemental ranges: <140 mg/dL before meals <180 mg/dL all other times of the day Blood specimen (specimen) 03/25/2020 7:53 PM EST 03/25/2020 7:53 PM EST Davian Carolina MD POINT OF CARE TEST ORDERABLES [facility] [place] [address] * POCT Glucose (03/25/2020 4:23 PM EST) Glucose, POC 149 65 - 199 mg/dL [facility] Comment: Supplemental ranges: <140 mg/dL before meals <180 mg/dL all other times of the day Blood specimen (specimen) 03/25/2020 4:23 PM EST 03/25/2020 4:23 PM EST Davian Carolina MD POINT OF CARE TEST ORDERABLES Performing Organization Address City/[facility]/ZIP Co de Phone Number [facility] [place] [address] * POCT Glucose (03/25/2020 12:36 PM EST) Glucose, POC 132 65 - 199 mg/dL [facility] Comment: Supplemental ranges: <140 mg/dL before meals <180 mg/dL all other times of the day Blood specimen (specimen) 03/25/2020 12:36 PM EST 03/25/2020 12:36 PM EST Davian Carolina MD POINT OF CARE TEST ORDERABLES Performing Organization Address [facility]/ZIP Co de Phone Number [facility] [place] [address] * (ABNORMAL) Urinalysis Microscopic Exam (03/25/2020 10:21 AM EST) RBC, Urine 5(H) 0 - 4 /HPF [facility] WBC, Urine 3 0 - 5 /HPF [facility] Squamous Epithelial Cells Raw Data, Urine 1 <=4 /HPF [facility] Hyaline Casts, Urine 8(H) 0 - 2 /LPF [facility] Urine specimen obtained via indwelling urinary catheter (specimen) 03/25/2020 10:21 AM EST 03/25/2020 11:31 AM EST Narrative Resulting Agency Comment Spec In Lab Anjelica Jordan APRN URINE ORDERABLES Performing Organization Address City/[facility]/ZIP Co de Phone Number [facility] [place] [address] * (ABNORMAL) Urinalysis with reflex Culture (03/25/2020 10:21 AM EST) Glucose, Urine Dipstick Negative Negative mg/dL [facility] Protein, Urine Dipstick Negative Negative mg/dL [facility] Bilirubin, Urine Dipstick Negative Negative mg/dL [facility] Comment: Clinical correlation required for positive Urine Bilirubin results as false positive may occur with some drugs and drug related products. If a false positive is suspected a serum total bilirubin should be considered if clinically indicated. Urobilinogen, Urine Dipstick Normal Normal mg/dL [facility] pH, Urn (dipstick) 5.5 5.0 - 8.0 [facility] Blood, Urine Dipstick Negative Negative mg/dL [facility] Ketone, Urine Dipstick >=80(Critica l) Negative mg/dL [facility] Comment: Urinalysis result NOT critical without a combination of Glucose greater than or equal to 500 mg/dL AND Ketones greater than or equal to 80 mg/dL Nitrite, Urine Dipstick Negative Negative [facility] Leukocytes, Urine Dipstick Trace(A) Negative [facility] Appearance, Urine Dipstick Clear Clear [facility] Specific [place] Urine Automated 1.016 1.006 - 1.030 [facility] Color, Urine Dipstick Yellow Yellow [facility] Reflex to Culture No [facility] Urine specimen obtained via indwelling urinary catheter (specimen) 03/25/2020 10:21 AM EST 03/25/2020 11:31 AM EST Narrative Resulting Agency Comment Spec In Lab Anjelica Jordan APRN URINE ORDERABLES [facility] [place] [address] * POCT Glucose (03/25/2020 7:50 AM EST) Glucose, POC 114 65 - 199 mg/dL [facility] Comment: Supplemental ranges: <140 mg/dL before meals <180 mg/dL all other times of the day Blood specimen (specimen) 03/25/2020 7:50 AM EST 03/25/2020 7:50 AM EST Davian Carolina MD POINT OF CARE TEST ORDERABLES Performing Organization Address [facility]/ZIP Co de Phone Number [facility] [place] [address] * POCT Glucose (03/25/2020 4:06 AM EST) Glucose, POC 108 65 - 199 mg/dL [facility] Comment: Supplemental ranges: <140 mg/dL before meals <180 mg/dL all other times of the day Blood specimen (specimen) 03/25/2020 4:06 AM EST 03/25/2020 4:06 AM EST Davian Carolina MD POINT OF CARE TEST ORDERABLES Performing Organization Address [facility] Co de Phone Number [facility] [place] [address] * Amylase Level Body Fluid KHRIS Drain (03/25/2020 3:53 AM EST) Amylase, Fluid 22 unit/L [facility] Comment: No reference range is available for the specimen type submitted. ??The performance of this assay for the submitted type has not been validated and results should be interpreted accordingly and with regard to the patient's clinical status. Amylase BF Type KHRIS Drain [facility] KHRIS Drain 03/25/2020 3:53 AM EST 03/25/2020 4:14 AM EST Narrative Resulting Agency Comment Spec In Lab Davian Carolina MD BODY FLUIDS AND ST OOLS ORDERABLES Performing Organization Address [facility]/ZIP Co de Phone Number [facility] [place] [address] * (ABNORMAL) Differential, Automated (03/25/2020 1:55 AM EST) Pathologist [facility] Neutrophil % 82.1 % [facility] Neutrophil Absolute 11.43(H) 1.70 - 6.10 x10(3)/ L [facility] Lymph % 10.1 % [facility] Lymphocytes Abs 1.4 0.9 - 3.2 x10(3)/ L [facility] Monocyte % 6.9 % [facility] Monocyte Abs 1.0(H) 0.3 - 0.9 x10(3)/ L [facility] Eos % 0.3 % [facility] Eosinophils Abs 0.0 0.0 - 0.4 x10(3)/[facility] Basophil % 0.2 % [facility] Baso Absolute 0.0 0.0 - 0.1 x10(3)/[facility] Immature Gran % 0.40 % [facility] Comment: Immature granulocytes(IG's)percentage and absolute count will include metamyelocytes, myelocytes, and promyelocytes. Blood smears from CBCs yielding IG's will be scanned manually for concordance. If this scan disagrees with the automated IG or if promyelocytes are noted, a manual differential will be performed. Immature Gran Absolute 0.06(H) 0.00 - 0.04 x10(3)/ L [facility] Blood specimen (specimen) 03/25/2020 1:55 AM EST 03/25/2020 2:04 AM EST Narrative Resulting Agency Comment Spec In Lab Anjelica Jordan APRN HEMATOLOGY ORDER MAGAN [facility] [place] [address] * (ABNORMAL) Hemogram (03/25/2020 1:55 AM EST) [facility] White Blood Cell 13.9(H) 4.0 - 9.5 x10(3)/ L [facility] Red Blood Cell 3.65(L) 4.00 - 5.21 x10(6)/mc L [facility] Hemoglobin 11.2(L) 11.7 - 15.5 gm/dL [facility] Hematocrit 33.5(L) 35.7 - 45.8 % [facility] Mean Cell Volume 91.8 82.6 - 94.4 fL [facility] Mean Cell Hemoglobin 30.7 27.1 - 32.0 pg [facility] Mean Cell Hemoglobin Concentration 33.4 31.7 - 35.0 gm/dL [facility] Platelet 203 145 - 357 x10(3)/mc L [facility] RDW Standard Deviation 42.5 37.0 - 46.0 fL [facility] RDW coefficient of variation 12.7 11.5 - 14.1 % [facility] Mean Platelet Volume 9.9 7.6 - 12.9 fL [facility] NRBC% auto 0.0 % [facility] NRBC Absolute 0.000 0.000 - 0.000 x10(3)/mc L [facility] Blood specimen (specimen) 03/25/2020 1:55 AM EST 03/25/2020 2:04 AM EST Narrative Resulting Agency Comment Spec In Lab Anjelica Jordan APRN HEMATOLOGY ORDER MAGAN Performing Organization Address [facility] Co de Phone Number [facility] [place] [address] * (ABNORMAL) Phosphorus (03/25/2020 1:55 AM EST) Phosphorus 1.6(L) 2.5 - 4.5 mg/dL [facility] Blood specimen (specimen) 03/25/2020 1:55 AM EST 03/25/2020 2:04 AM EST Narrative Resulting Agency Comment Spec In Lab Anjelica Jordan SALES ACCOUNT DIRECTOR CHEMISTRY ORDERA BLES Performing Organization Address City/[facility]/ZIP Co de Phone Number [facility] [place] [address] * Magnesium (03/25/2020 1:55 AM EST) Magnesium 0.78 0.69 - 1.07 mmol/L [facility] Blood specimen (specimen) 03/25/2020 1:55 AM EST 03/25/2020 2:04 AM EST Narrative Resulting Agency Comment Spec In Lab Anjelica Jordan APRN CHEMISTRY ORDERA BLES Performing Organization Address City/[facility]/ZIP Co de Phone Number [facility] [place] [address] * (ABNORMAL) Comprehensive metabolic panel (non-fasting) (03/25/2020 1:55 AM EST) [facility] Glucose 116 65 - 199 mg/dL [facility] Comment:Diabetes: >=200 mg/d L plus symptoms Blood Urea Nitrogen 10 8 - 18 mg/dL [facility] Creatinine 0.48(L) 0.70 - 1.20 mg/dL [facility] Sodium 138 135 - 145 mmol/L [facility] Potassium 3.9 3.5 - 5.0 mmol/L [facility] Comment: Please note: ??Patients with WBC >100,000 may have falsely elevated Potassium levels. ??For accurate Potassium quantification in these patients send serum separator tube (gold top) for subsequent determinations. ??Contact the Clinical Chemistry Laboratory if there are any questions. Chloride 101 98 - 107 mmol/L [facility] Carbon Dioxide 29 22 - 31 mmol/L [facility] Anion Gap 8 5 - 15 mmol/L [facility] Calcium 8.2(L) 8.5 - 10.5 mg/dL [facility] Protein, Total 5.2(L) 6.1 - 8.0 gm/dL [facility] Albumin 3.1(L) 3.2 - 5.2 gm/dL [facility] Aspartate Aminotransferase 149(H) 0 - 30 unit/L [facility] Alanine Aminotransferase 170(H) 0 - 30 unit/L [facility] Alkaline Phosphatase 58 35 - 105 unit/L [facility] Bilirubin, Total 0.6 0.2 - 1.3 mg/dL [facility] Est Glomerular Filtration Rate 97 >=60 mL/min/1. 73 m?? [facility] Comment: This patient? s [...] Agency Comment Spec In Lab Anjelica Jordan SALES ACCOUNT DIRECTOR CHEMISTRY ORDERA BLES Performing Organization Address [facility] Co de Phone Number [facility] [place] [address] * Amylase (03/25/2020 1:55 AM EST) Amylase 31 28 - 100 unit/L [facility] Blood specimen (specimen) 03/25/2020 1:55 AM EST 03/25/2020 2:04 AM EST Narrative Resulting Agency Comment Spec In Lab Anjelica Jordan SALES ACCOUNT DIRECTOR CHEMISTRY ORDERA BLES Performing Organization Address [facility]/ZIP Co de Phone Number [facility] [place] [address] * POCT Glucose (03/24/2020 11:38 PM EST) Glucose, POC 117 65 - 199 mg/dL [facility] Comment: Supplemental ranges: <140 mg/dL before meals <180 mg/dL all other times of the day Blood specimen (specimen) 03/24/2020 11:38 PM EST 03/24/2020 11:38 PM EST Davian Carolina MD POINT OF CARE TEST ORDERABLES Performing Organization Address [facility]/ZIP Co de Phone Number [facility] [place] [address] * POCT Glucose (03/24/2020 8:17 PM EST) Glucose, POC 109 65 - 199 mg/dL [facility] Comment: Supplemental ranges: <140 mg/dL before meals <180 mg/dL all other times of the day Blood specimen (specimen) 03/24/2020 8:17 PM EST 03/24/2020 8:17 PM EST Davian Carolina MD POINT OF CARE TEST ORDERABLES Performing Organization Address [facility]/ZIP Co de Phone Number [facility] [place] [address] * Potassium (03/24/2020 5:40 PM EST) Potassium 4.1 3.5 - 5.0 mmol/L [facility] Comment: Please note: ??Patients [...] APRN CHEMISTRY ORDERA BLES Performing Organization Address City/[facility]/ZIP Co de Phone Number [facility] [place] [address] * (ABNORMAL) Aspartate Aminotransferase (03/24/2020 5:40 PM EST) Aspartate Aminotransferase 137(H) 0 - 30 unit/L [facility] Blood specimen (specimen) 03/24/2020 5:40 PM EST 03/24/2020 6:02 PM EST Narrative Resulting Agency Comment Spec In Lab Anjelica Jordan APRN CHEMISTRY ORDERA BLES Performing Organization Address City/[facility]/ZIP Co de Phone Number [facility] [place] [address] * POCT Glucose (03/24/2020 5:13 PM EST) Glucose, POC 112 65 - 199 mg/dL [facility] Comment: Supplemental ranges: <140 mg/dL before meals <180 mg/dL all other times of the day Blood specimen (specimen) 03/24/2020 5:13 PM EST 03/24/2020 5:13 PM EST Davian Carolina MD POINT OF CARE TEST ORDERABLES Performing Organization Address [facility] Co de Phone Number [facility] [place] [address] * Place PICC Line: Contact Vascular Access Page [phone] Extremity to exclude: DO NOT use RIGHT [...] to the planned procedure. Hand Hygiene: The de ionizer operator did perform hand hygiene prior to line insertion. Catheter type: PICC Lot number: [id number] Procedure Technique: Skin was prepped with chlorhexidine. [...] signed by: Osmani Rhodes MD, [facility] ([phone]), at 03/24/2020 4:54 PM Narrative 03/24/2020 4:54 [...] signed by: Osmani Rhodes MD, [facility]([phone]), at 03/24/2020 4:54 PM Davian Carolina MD IMG FLUORO ORDERAB LES * POCT Glucose (03/24/2020 1:05 PM EST) [facility] Glucose, POC 113 65 - 199 mg/dL [facility] Comment: Supplemental ranges: <140 mg/dL before meals <180 mg/dL all other times of the day Blood specimen (specimen) 03/24/2020 1:05 PM EST 03/24/2020 1:05 PM EST Davian Carolina MD POINT OF CARE TEST ORDERABLES [facility] [place] [address] * POCT Glucose (03/24/2020 9:28 AM EST) Pathologist [facility] Glucose, POC 155 65 - 199 mg/dL [facility] Comment: Supplemental ranges: <140 mg/dL before meals <180 mg/dL all other times of the day Blood specimen (specimen) 03/24/2020 9:28 AM EST 03/24/2020 9:28 AM EST Davian Carolina MD POINT OF CARE TEST ORDERABLES [facility] [place] [address] * (ABNORMAL) Differential, Automated (03/24/2020 8:28 AM EST) [facility] Neutrophil % 84.9 % [facility] Neutrophil Absolute 13.84(H) 1.70 - 6.10 x10(3)/mc L [facility] Lymph % 6.7 % [facility] Lymphocytes Abs 1.1 0.9 - 3.2 x10(3)/mc L [facility] Monocyte % 7.9 % [facility] Monocyte Abs 1.3(H) 0.3 - 0.9 x10(3)/mc L [facility] Eos % 0.0 % [facility] Eosinophils Abs 0.0 0.0 - 0.4 x10(3)/mc L [facility] Basophil % 0.1 % [facility] Baso Absolute 0.0 0.0 - 0.1 x10(3)/mc L [facility] Immature Gran % 0.40 % [facility] Comment: Immature granulocytes(IG's)percentage and absolute count will include metamyelocytes, myelocytes, and promyelocytes. Blood smears from CBCs yielding IG's will be scanned manually for concordance. If this scan disagrees with the automated IG or if promyelocytes are noted, a manual differential will be performed. Immature Gran Absolute 0.07(H) 0.00 - 0.04 x10(3)/ L [facility] Blood specimen (specimen) 03/24/2020 8:28 AM EST 03/24/2020 8:55 AM EST Narrative Resulting Agency Comment Spec In Lab Anjelica Jordan APRN HEMATOLOGY ORDER MAGAN Performing Organization Address City/State/[facility] Co de Phone Number [facility] [place] [address] * (ABNORMAL) Hemogram (03/24/2020 8:28 AM EST) White Blood Cell 16.3(H) 4.0 - 9.5 x10(3)/ L [facility] Red Blood Cell 3.90(L) 4.00 - 5.21 x10(6)/mc L [facility] Hemoglobin 11.7 11.7 - 15.5 gm/dL [facility] Hematocrit 37.0 35.7 - 45.8 % [facility] Mean Cell Volume 94.9(H) 82.6 - 94.4 fL [facility] Mean Cell Hemoglobin 30.0 27.1 - 32.0 pg [facility] Mean Cell Hemoglobin Concentration 31.6(L) 31.7 - 35.0 gm/dL [facility] Platelet 214 145 - 357 x10(3)/ L [facility] RDW Standard Deviation 45.4 37.0 - 46.0 fL [facility] RDW coefficient of variation 13.1 11.5 - 14.1 % [facility] Mean Platelet Volume 11.0 7.6 - 12.9 fL [facility] NRBC% auto 0.0 % [facility] NRBC Absolute 0.000 0.000 - 0.000 x10(3)/mc L [facility] Blood specimen (specimen) 03/24/2020 8:28 AM EST 03/24/2020 8:55 AM EST Narrative Resulting Agency Comment Spec In Lab Anjelica Jordan APRN HEMATOLOGY ORDER MAGAN Performing Organization Address [facility] Co de Phone Number [facility] [place] [address] * (ABNORMAL) Phosphorus (03/24/2020 8:28 AM EST) Phosphorus 4.6(H) 2.5 - 4.5 mg/dL [facility] Blood specimen (specimen) 03/24/2020 8:28 AM EST 03/24/2020 8:55 AM EST Narrative Resulting Agency Comment Spec In Lab Anjelica Jordan APRN CHEMISTRY ORDERA BLES Performing Organization Address [facility] Co de Phone Number [facility] [place] [address] * Magnesium (03/24/2020 8:28 AM EST) Magnesium 1.07 0.69 - 1.07 mmol/L [facility] Comment:result rechecked-mary lou Blood specimen (specimen) 03/24/2020 8:28 AM EST 03/24/2020 8:55 AM EST Narrative Resulting Agency Comment Spec In Lab Anjelica Jordan SALES ACCOUNT DIRECTOR CHEMISTRY ORDERA BLES Performing Organization Address [facility] Co de Phone Number [facility] [place] [address] * (ABNORMAL) Amylase (03/24/2020 8:28 AM EST) Amylase 21(L) 28 - 100 unit/L [facility] Blood specimen (specimen) 03/24/2020 8:28 AM EST 03/24/2020 8:55 AM EST Narrative Resulting Agency Comment Spec In Lab Anjelica E Nikki SALES ACCOUNT DIRECTOR CHEMISTRY ORDERA BLES Performing Organization Address City/State/[facility] Co de Phone Number [facility] [place] [address] * (ABNORMAL) CMP w/fasting Glucose (03/24/2020 8:28 AM EST) Glucose Fasting 138(H) 65 - 99 mg/dL [facility] Comment: ?Fasting* Glucose Interpretive [...] of Diabetes Mellitus, Position Statement from the [place] [employer]. ??Diabetes Care, Volume 33, Supplement 1, Apr 2009 Blood Urea Nitrogen 16 8 - 18 mg/dL [facility] Creatinine 0.77 0.70 - 1.20 mg/dL [facility] Sodium 140 135 - 145 mmol/L [facility] Potassium Not Perf 3.5 - 5.0 [facility] Comment: Unable to quantitate [...] questions. Chloride 105 98 - 107 mmol/L [facility] Carbon Dioxide 26 22 - 31 mmol/L [facility] Anion Gap 9 5 - 15 mmol/L [facility] Calcium 8.2(L) 8.5 - 10.5 mg/dL [facility] Protein, Total 5.1(L) 6.1 - 8.0 gm/dL [facility] Albumin 3.1(L) 3.2 - 5.2 gm/dL [facility] Aspartate Aminotransferase Not Perf 0 - 30 [facility] Comment: Unable to quantitate due to sample hemolysis. ??Sample redraw suggested. Called by: MARY LOU, Read back by: Sanjuanita Mercado, Date/Time:03/24/20 09:48. Alanine Aminotransferase 168(H) 0 - 30 unit/L [facility] Alkaline Phosphatase 55 35 - 105 unit/L [facility] Bilirubin, Total 0.4 0.2 - 1.3 mg/dL [facility] Est Glomerular Filtration Rate 77 >=60 mL/min/1. 73 m?? [facility] Comment: This patient? s [...] Lab Davian Carolina MD CHEMISTRY ORDERABL ES [facility] [place] [address] * Amylase Level Body Fluid KHRIS Drain (03/24/2020 5:07 AM EST) Pathologist [facility] Amylase, Fluid 26 unit/L [facility] Comment: No reference range is available for the specimen type submitted. ??The performance of this assay for the submitted type has not been validated and results should be interpreted accordingly and with regard to the patient's clinical status. Amylase BF Type KHRIS Drain [facility] KHRIS Drain 03/24/2020 5:07 AM EST 03/24/2020 5:44 AM EST Narrative Resulting Agency Comment Spec In Lab Davian Carolina MD BODY FLUIDS AND ST OOLS ORDERABLES Performing Organization Address [facility] de Phone Number [facility] [place] [address] * Scan, Peripheral Blood (03/23/2020 6:30 PM EST) Pathologist [facility] Plat estimate Normal [facility] RBC Morphology Normal [facility] Vacuolated Neut Present [facility] Platelet Clumps Present [facility] Blood specimen (specimen) 03/23/2020 6:30 PM EST 03/23/2020 6:35 PM EST Narrative Resulting Agency Comment Spec In Lab Raj Kang MD HEMATOLOGY ORDERABLE S Performing Organization Address [facility] Co de Phone Number [facility] [place] [address] * (ABNORMAL) Differential, Automated (03/23/2020 6:30 PM EST) Pathologist [facility] Neutrophil % 90.8 % [facility] Neutrophil Absolute 21.25(H) 1.70 - 6.10 x10(3)/mc L [facility] Lymph % 2.9 % [facility] Lymphocytes Abs 0.7(L) 0.9 - 3.2 x10(3)/mc L [facility] Monocyte % 5.6 % [facility] Monocyte Abs 1.3(H) 0.3 - 0.9 x10(3)/[facility] Eos % 0.0 % [facility] Eosinophils Abs 0.0 0.0 - 0.4 x10(3)/[facility] Basophil % 0.3 % [facility] Baso Absolute 0.1 0.0 - 0.1 x10(3)/[facility] Immature Gran % 0.40 % [facility] Comment: Immature granulocytes(IG's)percentage and absolute count will include metamyelocytes, myelocytes, and promyelocytes. Blood smears from CBCs yielding IG's will be scanned manually for concordance. If this scan disagrees with the automated IG or if promyelocytes are noted, a manual differential will be performed. Immature Gran Absolute 0.10(H) 0.00 - 0.04 x10(3)/[facility] Blood specimen (specimen) 03/23/2020 6:30 PM EST 03/23/2020 6:35 PM EST Narrative Resulting Agency Comment Spec In Lab Raj Kang MD HEMATOLOGY ORDERABLE S Performing Organization Address City/State/[facility] Co de Phone Number [facility] [place] [address] * (ABNORMAL) Hemogram (03/23/2020 6:30 PM EST) White Blood Cell 23.4(H) 4.0 - 9.5 x10(3)/[facility] Red Blood Cell 4.07 4.00 - 5.21 x10(6)/[facility] Hemoglobin 12.2 11.7 - 15.5 gm/dL [facility] Hematocrit 37.9 35.7 - 45.8 % [facility] Mean Cell Volume 93.1 82.6 - 94.4 fL [facility] Mean Cell Hemoglobin 30.0 27.1 - 32.0 pg [facility] Mean Cell Hemoglobin Concentration 32.2 31.7 - 35.0 gm/dL [facility] Platelet 275 145 - 357 x10(3)/mc L [facility] RDW Standard Deviation 43.7 37.0 - 46.0 fL [facility] RDW coefficient of variation 12.7 11.5 - 14.1 % [facility] Mean Platelet Volume 9.8 7.6 - 12.9 fL [facility] NRBC% auto 0.0 % [facility] NRBC Absolute 0.000 0.000 - 0.000 x10(3)/mc L [facility] Blood specimen (specimen) 03/23/2020 6:30 PM EST 03/23/2020 6:35 PM EST Narrative Resulting Agency Comment Spec In Lab Raj Kang MD HEMATOLOGY ORDERABLE S [facility] [place] [address] * (ABNORMAL) Phosphorus (03/23/2020 6:30 PM EST) Phosphorus 5.1(H) 2.5 - 4.5 mg/dL [facility] Blood specimen (specimen) 03/23/2020 6:30 PM EST 03/23/2020 6:35 PM EST Narrative Resulting Agency Comment Spec In Lab Davian Carolina MD CHEMISTRY ORDERABL ES [facility] [place] [address] * Magnesium (03/23/2020 6:30 PM EST) Magnesium 0.69 0.69 - 1.07 mmol/L [facility] Blood specimen (specimen) 03/23/2020 6:30 PM EST 03/23/2020 6:35 PM EST Narrative Resulting Agency Comment Spec In Lab Davian Carolina MD CHEMISTRY ORDERABL ES [facility] [place] [address] * (ABNORMAL) Comprehensive metabolic panel (non-fasting) (03/23/2020 6:30 PM EST) Glucose 217(H) 65 - 199 mg/dL [facility] Comment:Diabetes: >=200 mg/d L plus symptoms Blood Urea Nitrogen 16 8 - 18 mg/dL [facility] Creatinine 0.88 0.70 - 1.20 mg/dL [facility] Sodium 141 135 - 145 mmol/L [facility] Potassium 4.4 3.5 - 5.0 mmol/L [facility] Comment: Please note: ??Patients with WBC >100,000 may have falsely elevated Potassium levels. ??For accurate Potassium quantification in these patients send serum separator tube (gold top) for subsequent determinations. ??Contact the Clinical Chemistry Laboratory if there are any questions. Chloride 106 98 - 107 mmol/L [facility] Carbon Dioxide 24 22 - 31 mmol/L [facility] Anion Gap 11 5 - 15 mmol/L [facility] Calcium 8.1(L) 8.5 - 10.5 mg/dL [facility] Protein, Total 5.2(L) 6.1 - 8.0 gm/dL [facility] Albumin 3.5 3.2 - 5.2 gm/dL [facility] Aspartate Aminotransferase 161(H) 0 - 30 unit/L [facility] Alanine Aminotransferase 178(H) 0 - 30 unit/L [facility] Alkaline Phosphatase 66 35 - 105 unit/L [facility] Bilirubin, Total 1.4(H) 0.2 - 1.3 mg/dL [facility] Est Glomerular Filtration Rate 65 >=60 mL/min/1. 73 m?? [facility] Comment: This patient? s [...] MD CHEMISTRY ORDERABL ES Performing Organization Address [facility] Co de Phone Number [facility] [place] [address] * Anaerobic Culture (03/23/2020 1:46 PM EST) Anaerobic Culture No anaerobic organisms isolated [facility] Bile specimen (specimen) 03/23/2020 1:46 PM EST 03/23/2020 2:08 PM EST Comment:BILE CULTURE Narrative Resulting Agency Comment Spec In Lab Davian Carolina MD MICROBIOLOGY - GEN ERAL ORDERABLES Performing Organization Address [facility] Co de Phone Number [facility] [place] [address] * Body Fluid Culture, Aerobic (03/23/2020 1:46 PM EST) Body Fluid Culture No growth [facility] Gram Stain Cytocentrifuge Gram Stain performed Neutrophils seen No microorganisms seen. [facility] Bile specimen (specimen) 03/23/2020 1:46 PM EST 03/23/2020 2:08 PM EST Comment:BILE CULTURE Narrative Resulting Agency Comment Spec In Lab Davian Carolina MD MICROBIOLOGY - GEN ERAL ORDERABLES [facility] [place] [address] * Specimen to Pathology (03/23/2020 12:44 PM EST) AP Specimen 03/23/2020 12:4 4 PM EST 03/23/2020 12:44 PM EST Narrative [facility] - 03/23/2020 12:44 PM EST Specimen requisition ordered. ??Separate Pathology report to follow Davian Carolina MD PATHOLOGY/CYTOLOGY ORDERABLES Performing Organization Address [facility]/[place] [address] * Specimen to Pathology (03/23/2020 12:39 PM EST) AP Specimen 03/23/2020 12:3 9 PM EST 03/23/2020 12:39 PM EST Narrative [facility] - 03/23/2020 12:39 PM EST Specimen requisition ordered. ??Separate Pathology report to follow Davian Carolina MD PATHOLOGY/CYTOLOGY ORDERABLES Performing Organization Address [facility]/[place] [address] * Specimen to Pathology (03/23/2020 9:54 AM EST) AP Specimen 03/23/2020 9:54 AM EST 03/23/2020 9:54 AM EST Narrative [facility] - 03/23/2020 9:54 AM EST Specimen requisition ordered. ??Separate Pathology report to follow Davian Carolina MD PATHOLOGY/CYTOLOGY ORDERABLES Performing Organization Address City/[facility]/[place] [address] * Surgical Pathology Report (03/23/2020 9:25 AM EST) Final Diagnosis [id number] ? Location: 2WST; 0207; A The signing [...] Burton MD Verified: ??03/30/2020 ?Pathologist Performed at: ??-[facility] Dept. of Pathology, [place], [place] ADDITIONAL STUDIES Whole slide scan: B6,B10 [...] 7 cm ??Lesser Curvature: 5 cm ??Serosa: Naplate-aguilar and glistening ??Mucosa: Aguilar-brown and granular with no lesions DUODENUM ??Length/Diameter: 20 x 2.0 cm ??Serosa: Naplate-aguilar and glistening ??Mucosa: Aguilar to aguilar-brown and normally folded ??Ampulla of Vater: Pronounced and patent ??Minor papilla: Patent and uninvolved OTHER Lymph nodes: Multiple lymph nodes are identified. Ink Designation: The posterior retroperitoneal margin is inked red. The anterior serosal surface is inked green. Sections/Processin g: The following tissue is submitted for frozen section: Bisected en face pancreatic neck margin. Torsion Spring Coiling Machine Setter sections in 23 cassettes as follows: ?B1-B2: [...] hepatic margin is inked black Sections/Processin g: Torsion Spring Coiling Machine Setter sections in 1 cassettes as follows: ?D1: ??cystic duct margin and medical sales representative mucosa. ??lauar ?Frozen Section FROZEN SECTION DIAGNOSIS _BFS1,2 Pancreatic neck margin: ?Negative for tumor 03/23/20 13:12 Electronically signed by: ??Hiro Burton MD Verified: ??03/23/2020 ?Pathologist Performed at: ??-[facility] Dept. of Pathology, [place], [place] This intraoperative consultation should be interpreted as a preliminary diagnosis pending review of the entire specimen and special studies, if any. 03/30/2020 5:06 PM EST [facility] GALLBLADDER STRUCTURE / Unknown 03/23/2020 9:25 AM EST 03/23/2020 9:25 AM EST PANCREATIC STRUCTURE / Unknown 03/23/2020 9:25 AM EST 03/23/2020 9:25 AM EST LYMPH NODE SPECIMEN / Unknown 03/23/2020 9:25 AM EST 03/23/2020 9:25 AM EST GALLBLADDER STRUCTURE / Unknown 03/23/2020 9:25 AM EST 03/23/2020 9:25 AM EST Davian Carolina MD PATHOLOGY/[place] [address] * Specimen to Pathology (03/23/2020 9:25 AM EST) AP Specimen 03/23/2020 9:25 AM EST 03/23/2020 9:25 AM EST Narrative [facility] - 03/23/2020 9:25 AM EST Specimen requisition ordered. ??Separate Pathology report to follow Davian Carolina MD PATHOLOGY/CYTOLOGY ORDERABLES Performing Organization Address City/[facility]/ZIP Co de Phone Number [facility] [place] [address] * ABORH Recheck Status (03/23/2020 7:24 AM EST) ABORH Type Recheck Completed [facility] Blood specimen (specimen) 03/23/2020 7:24 AM EST 03/23/2020 7:26 AM EST Narrative Resulting Agency Comment Spec In Lab Davian Carolina MD BLOOD BANK LAB ORD ERABLES Performing Organization Address City/[facility]/ZIP Co de Phone Number [facility] [place] [address] * Antibody screen (03/23/2020 7:24 AM EST) Ab Screen Interp Negative [facility] Expires at [id number] on: 03/26/2020 [facility] Blood specimen (specimen) 03/23/2020 7:24 AM EST 03/23/2020 7:26 AM EST Narrative Resulting Agency Comment Spec In Lab Davian Carolina MD BLOOD BANK LAB ORD ERABLES Performing Organization Address City/[facility]/ZIP Co de Phone Number [facility] [place] [address] * ABO/Rh Typing (03/23/2020 7:24 AM EST) ABORH Type A Pos [facility] Blood specimen (specimen) 03/23/2020 7:24 AM EST 03/23/2020 7:26 AM EST Narrative Resulting Agency Comment Spec In Lab Davian Carolina MD BLOOD BANK LAB ORD ERABLES Performing Organization Address [facility] Co de Phone Number [facility] [place] [address] documented in this encounter Visit Diagnoses Not [...] Intravenous, EVERY 30 MIN PRN, Starting on e [...] Discontinued, Remove lidocaine 5 %(700 mg/patch) patch nwbxjd-bcipsylk-noibmpp DR (Creon 24) 24,000-76,000 -120,000 unit per [...] Ruiz, LOS)1742 (Given - Provider: Wendy Ruiz, LSO) 0812 (Given - Provider: Alanna Kaplan RN) [...] (Patch Removed - Provider: Jim Lim RN) laiqjn-bklhbsgu-yjuceet DR (Creon 24) 24,000-76,000 -120,000 unit per [...] Wendy Ruiz RN)2044 (Given - Provider: Jim Lim, RN) 0812 (Given - Provider: Alanna Kaplan, RN)1205 (Given - Provider: Alanna Kaplan, RN) metroNIDAZOLE (Flagyl) 500 mg in sodium chloride 0.9% 100 mL infusion (COMPLETED) 500 mg, Intravenous, EVERY 8 HOURS, 21 doses, First dose on Mon04/03/20 at 1145, Last dose on Mon04/10/20 at 0345, Administer over 30 Minutes, Indication for (Active or Suspected): Anaerobic infection-Respiratory 0513 (New Bag - Provider: Mervin Grimes RN)0543 (Stopped - Provider: Mervin Grimes RN)133 (New Bag - Provider: Wendy Ruiz RN)140 (Stopped - Provider: Wendy Ruiz RN)2019 (New Bag - Provider: Amado Carolina RN)2049 (Stopped - Provider: Amado Carolina RN) 030 (New Bag - Provider: Amado Carolina RN)0339 (Stopped - Provider: Amado Carolina RN) pantoprazole (Protonix) injection 40 mg (CANCELED) 40 mg, Intravenous, 2 TIMES DAILY, First dose on Mon04/01/20 at 2100, Until Discontinued 0856 (Given - Provider: Wendy Ruiz RN)2019 (Given - Provider: Amado Carolina RN) 0911 (Given - Provider: Wendy Ruiz RN)204 (Given - Provider: Jim Lim, LOS) 0813 [...] Wendy Ruiz, LOS)2020 (Given - Provider: Amado Carolina, RN) 0911 (Given - Provider: Wendy Ruiz [...] Ruiz RN) 1730 (Stopped - Provider: Wendy Ruiz RN)1759 (New Bag - Provider: Wendy Ruiz RN) [...] Intravenous, EVERY 2 HOURS PRN, Starting on 04/01/20 at 1756, Until 04/11/20 at 0814, Pain, [...] NOT exceed 2 mg total dose. Per MEDICAL PHYSIOLOGIST order., Recovery (Recovery-Hospital Unit), Routine ondansetron (pf) (Zofran) (2 mg/mL) injection 4-8 mg 4-8 mg, Intravenous, EVERY 8 HOURS PRN, Starting on Mon03/24/20 at 0505, Until 04/11/20 at 1820, Nausea, Vomiting, If multiple antiemetics are ordered, use ondansetron first May repeat times one in 30 minutes if ineffective. 1899 (Given - Provider: Wendy Ruiz RN)2042 (Given [...] documented as of this encounter Care Teams Licensed Loan Officer Assistant Relationship Specialty Start Date End Date Zeny James APRN [address] [place] [address] PCP - General Family Medicine 09/23/19 documented as of this encounter
--- OUTSIDE RECORDS SUMMARY | 2024-05-10 14:56 | XMS_ITS | Encounter Summary ---
[facility] Organization [facility] [place] [address] Care Team Providers Care Ham Curer Name Role Phone Zeny James APRN Primary Care Provider Reason for Visit * Reason Onset Date Comments Results 03/31/2020 Encounter Details Date Type Department Care Team (Late st Contact Info) Description 03/31/2020 Telephone Hematology [place] [address] Steph Swartz LGC Results Social History Tobacco Use Types Packs/Day [...] Notes * Telephone Encounter - Steph Swartz LGC - 03/31/2020 11:34 AM EST This test result was discussed with the patient by phone. A copy of the test results have been scanned in the medical record and sent to Linda. A summary of the results is provided below. Please be advised that [place] law requires that all health care workers respect the confidentiality of this information and not pass it along to other health care providers, insurance companies, or indivi duals without the written permission of the patient. The Familial Cancer Program welcomes any questions about these matters. Our phone number is: [phone]. On 03/19/2020, Linda underwent genetic testing for the known CHEK2 mutation in her sister and a hereditary predisposition to common hereditary cancers, including breast, gynecologic and gastrointestinal. Following are the results of this test. 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 The following 47 genes were analyzed: APC, [...] for genetic counseling and testing. Our scheduling clerical secretary can be reached at [phone]. Family members can also go to the [...] age 40 or as recommended by Linda's mess attendant crew. Ovarian cancer screening ??? No special screening studies in addition to an annual R[employer] T[employer]BE STRAIGHTENER exam are indicated Skin cancer screening ??? [...] For some, a consultation with a psychologist, perinatal social worker, or psychiatrist may be helpful in dealing with feelings that may arise from genetic testing. If Linda wouldlike a referral, we can help and recommend a therapist who is familiar with issues surrounding genetic conditions. documented in this encounter Plan of Treatment Upcoming Encounters Date Type Department Care Team (Late st Contact Info) Description 01/01/2025 2:00 PM EDT Office Visit Hematology/Oncology at [address] [phone] Jeffery Sanz MD [facility] DR HEMAT[place]Y [place] [address] Mary Nails APRN [address] [place] [address] [place] [address] 01/01/2025 2:30 PM EDT Infusion Hematology Oncology at [address] [phone] 01/14/2025 11:00 AM EDT Laboratory Appointment Lab [address] [place] [phone] 01/14/2025 1:[address] [place] [phone] Regino Carolina MD [facility] [place] [address] 01/14/2025 2:00 PM EDT Office Visit [place] [address] Regino Carolina MD [facility] [place] [address] documented as of this encounter Visit Diagnoses Not on filedocumented in this encounter Care Teams Ham Curer Relationship Specialty Start Date End Date Zeny James APRN [address] [place] [address] [address] [place] [address] PCP - General Family Medicine 09/23/19 documented as of this encounter
--- OUTSIDE RECORDS SUMMARY | 2024-05-10 14:58 | XMS_ITS | Encounter Summary ---
Author Organization [facility] [place] [address] Care Team Providers Care Environmental Sciences Professor Name Role Phone Zeny James APRN Primary Care Provider [phone] Encounter Details Date Type Department Care Team (Late st Contact Info) Description 01/28/2020 11:15 AM EDT Laboratory Appointment Lab [address] [place] [phone] Social History Tobacco Use Types Packs/Day Years [...] PM EDT Office Visit Hematology/Oncology at [address] [phone] Jeffery Sanz MD [facility] DR H[place]AT[place]Y [place] [address] Mary Nails MYCOLOGY TEACHER [address] [place] [address] DR MEDICAL ONCOLOGY [place], [place] [id number] 01/01/2025 2:30 PM EDT Infusion Hematology Oncology at [address] [phone] 01/14/2025 11:00 AM EDT Laboratory Appointment Lab [address] [place] [phone] 01/14/2025 1:[address] [place] [address] Regino Carolina MD [facility] [place] [address] 01/14/2025 2:00 PM EDT Office [place] [phone] Regino Carolina MD [facility] [place] [address] documented as of this encounter Visit Diagnoses Not on filedocumented in this encounter Care Teams Environmental Sciences Professor Relationship Specialty Start Date End Date Zeny James APRN [address] [place] [address] PCP - General Family Medicine 09/23/19 documented as of this encounter
--- OUTSIDE RECORDS SUMMARY | 2024-05-10 14:58 | XMS_ITS | Encounter Summary ---
Author Organization [facility] [place] [address] Care Team Providers Care Provider Relations Representative Name Role Phone Zeny James APRN Primary Care Provider [phone] Encounter Details Date Type Department Care Team (Late Contact Info) Description 03/21/[address] [place] [phone] Anabela Montalvo CCMA Social History Tobacco Use [...] PM EDT Office Visit Hematology/Oncology at [address] [phone] Jeffery Sanz MD [facility] DR HEMAT[place] [address] Mary Nails APRN [address] [place] [address] DR MEDICAL ONCOLOGY [place], [place] [address] 01/01/2025 2:30 PM EDT Infusion Hematology Oncology at [address] [phone] 01/14/2025 11:00 AM EDT Laboratory Appointment Lab [address] [place] [address] 01/14/2025 1:[address] [place] [phone] Regino Carolina MD [facility] [place] [address] 01/14/2025 2:00 PM EDT Office Visit [place] [phone] Regino Carolina MD [facility] [place] [address] documented as of this encounter Visit Diagnoses Not on filedocumented in this encounter Care Teams Provider Relations Representative Relationship Specialty Start Date End Date Zeny James APRN [address] [place] [address] [address] [place], [place] [id number] PCP - General Family Medicine 09/23/19 documented as of this encounter
--- OUTSIDE RECORDS SUMMARY | 2024-05-10 14:58 | XMS_ITS | Encounter Summary ---
Author Organization [facility] Address [facility] [place] [address] Care Team Providers Care Manager Green Name Role Phone Zeny James APRN Primary Care Provider [phone] Reason for Referral * Physical Therapy (Routine) - Specialty Diagnoses / Procedures Referred By Nir potts Referred To Contact Physical Therapy Diagnoses History of breast cancer Susan Rivera MD [facility] [place] [address] Physical Therapy, Jaaml Winn [address] [place] [id number] Referral ID Status Reason Start Date Expiration Date V isits Requested Visits Authorized [id number] Evaluate and Treat 01/14/2020 07/12/2020 12 12 Encounter Details Date Type Department Care Team (Late st Contact Info) Description 01/14/2020 Orders Only [place] [address] Susan Rivera MD [facility] [place] [address] History of breast cancer (Primary Dx) Social [...] PM EDT Office Visit Hematology/Oncology at [address] [phone] Jeffery Sanz MD [facility] DR [place] [address] Mary Nails APRN [address] [place] [address] DR MEDICAL ONCOLOGY [place], [place] [id number] 01/01/2025 2:30 PM EDT Infusion Hematology Oncology at [address] [phone] 01/14/2025 11:00 AM EDT Laboratory Appointment Lab [address] [place] [phone] 01/14/2025 1:[address] [place] [phone] Regino Carolina MD [facility] [place] [address] 01/14/2025 2:00 PM EDT Office Visit [place] [phone] Regino Carolina MD [facility] [place] [place] [address] Scheduled Referrals Name Type Priority Associated Diagnoses Orde r Schedule Referral to Physical Therapy Outpatient Referral Routine History of breast cancer Ordered: 01/14/2020 documented as of this encounter Visit Diagnoses Diagnosis History of breast cancer- Primary Personal history of malignant neoplasm of breast documented in this encounter Care Teams Manager Green Relationship Specialty Start Date End Date Zeny James APRN [facility] [address] [place] [address] PCP - General Family Medicine 09/23/19 documented as of this encounter
--- OUTSIDE RECORDS SUMMARY | 2024-05-10 14:58 | XMS_ITS | Encounter Summary ---
[place] [address] Care Team Providers Care Trial Mgr Name Role Phone Zeny James APRN Primary Care Provider Encounter Details Date Type Department Care Team (Late st Contact Info) Description 12/27/2019 Telephone [place] [phone] Nataly Nash RN Social History Tobacco Use Types Packs/Day [...] PM EDT Office Visit Hematology/Oncology at [address] [phone] Jeffery Sanz MD [facility] [place] [address] Mary Nails APRN [address] [place] [address] DR MEDICAL ONCOLOGY [place], [place] [address] 01/01/2025 2:30 PM EDT Infusion Hematology Oncology at [address] [phone] 01/14/2025 11:00 AM EDT Laboratory Appointment Lab [address], [place] [phone] 01/14/2025 1:[address] [place] [phone] Regino Carolina MD [facility] [place] [address] 01/14/2025 2:00 PM EDT Office Visit [place] [phone] Regino Carolina MD [facility] [place] [address] documented as of this encounter Visit Diagnoses Not on filedocumented in this encounter Care Teams Trial Mgr Relationship Specialty Start Date End Date Zeny James APRN [address] [place] [address] PCP - General Family Medicine 09/23/19 documented as of this encounter
--- OUTSIDE RECORDS SUMMARY | 2024-05-10 14:58 | XMS_ITS | Encounter Summary ---
Author Organization [facility] [place] [address] Care Team Providers Care Center Medical And Lab Director Name Role Phone Zeny James APRN Primary Care Provider Encounter Details Date Type Department Care Team (Late Contact Info) Description 03/13/2020 Notes Only Hematology [place] [address] Roosevelt Dueñas MD Social History Tobacco Use Types Packs/Day Years [...] PM EDT Office Visit Hematology/Oncology at [address] [phone] Jeffery Sanz MD [facility] DR HEMATOLOGY [place] [address] Mary Nails APRN [address] [place] [address] DR MEDICAL ONCOLOGY [place], [place] [id number] 01/01/2025 2:30 PM EDT Infusion Hematology Oncology at [address] [phone] 01/14/2025 11:00 AM EDT Laboratory Appointment Lab [address] [place] [address] 01/14/2025 1:[address] [place] [phone] Regino Carolina MD [facility] [place] [address] 01/14/2025 2:00 PM EDT Office [place] [phone] Regino Carolina MD [facility] [place] [address] documented as of this encounter Visit Diagnoses Not on filedocumented in this encounter Care Teams Center Medical And Lab Director Relationship Specialty Start Date End Date Zeny James APRN [address] [place] [address] [address] [place], [place] [address] PCP - General Family Medicine 09/23/19 documented as of this encounter
--- OUTSIDE RECORDS SUMMARY | 2024-05-10 14:58 | XMS_ITS | Encounter Summary ---
Author Organization [facility] [place] [address] Care Team Providers Care Clinical Resource Coordinator Name Role Phone Zeny James APRN Primary Care Provider Reason for Visit * Auth/Cert Specialty Diagnoses / Procedures Referred By Nir t Referred To Contact Diagnoses IPMN Procedures PRO PART REMV PANC, PROX+PART DUOD+ANAST @PANCREATECTOMY, WHIPPLE TYPE WITH PANCREATOJEJUNOSTOMY (WRVU 52.79) MODIFIER ROBOT,DAVINCI XI Referral ID Status Reason Start Date Expiration Date Visits Re quested Visits Authorized [id number] 1 1 Encounter Details Date Type Department Care Team (Late st Contact Info) Description 03/23/2020 7:30 AM EST - 03/23/2020 3:58 PM EST Surgery [place] [address] Davian Carolina MD [facility] [place] [address] ROBOTIC PANCREATECTOMY,WHIPPLE, PARTIAL GASTRECTOMY W/ PANCREATOJEJUNOSTOMY (WRVU [...] R breast cancer HPI: Obtained from Dr. Daivan Carolina's Office Visit Note dated 01/28/2020. 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 ?? History of the present illness: Ms. Abel is a 74 year woman from [place], [place]. She presented[facility] ED on 2019 with epigastric abdominal pain [...] of pancreatic duct/cyst fluid cytopathology per Acc# [id number] showed neoplastic Cells Present. Abundant macrophages, mixed leukocytes present and a single group of bland-appearing columnar cells. ??Cell block was examined. Note: The fluid CEA level is consistent with neoplastic process. ?? 11/25/2019 surgical oncology consult. Maricruz was seen for surgery consultation. She was by herself. She described the episode that brought her to the ED at [facility] as the first time she is ever [...] ROBOTIC PANCREATECTOMY,WHIPPLE, PARTIAL GASTRECTOMY W/ PANCREATOJEJUNOSTOMY MODIFIER ROBOT,DAVMAURYI XI @OMENTAL FLAP, INTRA-ABDOMINAL (WRVU 6.54) Operative [...] to: Home VNA: Yes Name of facility: [facility]. Contact information: PHONE: [phone] Discharge Conditions/Prognosis: Stable Discharge Medications: The following [...] medications with new dosing Dose Details * yurquv-kvfcnfzi-txceycu DR 24,000-76,000 -120,000 unit Cpdr Commonly known as: Creon Take 1-2 capsules by mouth 3 times daily (with meals). With Meals: Take 1-2 capsules by mouth. WithSnacks: Take 1 capsule by mouth. What changed: See the new instructions. 1-2 capsule Quantity: 270 capsule Refills: 3 * kvencu-wthyugok-dslawis DR 24,000-76,000 -120,000 unit Cpdr Commonly known [...] PM LAB, THREE L Lab 3L GINA SALAMANCADC 04/21/2020 2:30 PM Davian Carolina MD [facility] [...] AND/OR HOSPICE SERVICES) PATIENT'S LOCATION: Linda Abel [address] [place] [id number] [place] [phone] Shipping Point Inspector's Name: self In discussion with the attending physician, it is certified that this patient is under their care and that they, or a Nurse Practitioner,Clinical Nurse specialist or Physician Internet Sales Manager who is working directly with them, had [...] andblood sugar monitoring. HOME HEALTH CARE AGENCY: [facility] PHONE: [phone] FAX: [phone] Start of care: 24-48hrs after discharge FOR [...] obtained from this patient's PCP: Zeny James, MANAGER ACUTE [address] [facility] / [facility] [id number] All VNA agencies which cover the area of patient's residence have been reviewed, either verbally kehinde writing, and patient/family have chosen the home health care agency noted Question Response Notes Agency name and contact information [facility] Patient location post discharge Home What services are requested Registered Nurse Start date 04/01/2020 Responsible MD post discharge contact info PCP and Dr. Carolina Referral for Home TPN Order Comments: Adult Home TPN Orders: Home infusion company: Linda Abel [address] [place] [address] DAVIAN CAROLINA Diagnosis requiring TPN: IPMN Diabetic: [...] and given to the patient. Patient Instructions [facility] Department of General Surgery Discharge Instructions CALL [...] with the Surgery nurses. The number is [phone]. - During the night or weekends call the [facility] receptionist/telephone operator at [phone] and ask to speak to the surgery resident conveyor console operator for general surgery. Please note: Your surgeon may not be Sleeve Machine Tender, especially during the night or on weekends, [...] hear anything, please call the clinic at [phone] to confirm or reschedule. - A follow-up [...] please call the General Surgery Clinic nurses [phone] for prior authorizations assistance General Instructions Upper [...] the day after the procedure, use an fmdd-zhh-cgogjae spray to numb your throat. Sucking on [...] occurs, please contact your Doctor. Please call [phone] before 8pm Mon-Fri with problems, questions or concerns. If you call after 8pm or on weekends, call the Hospital at [phone] and ask to speak to the Mortgage Loan Interviewer conveyor console operator and the receptionist/telephone operator will contact that person for you. When should you call for help? Call [phone] anytime you think you may need emergency [...] any problems. Where can you learn more? [facility] View your After Visit Summary and more online at [email or web address] If you would like to provide feedback about your hospital experience, please call the Office of Patient and Family Relations at . If you have received this After Visit Summary in error, please immediately return it in person to the department, or notify the [facility] Privacy Office by calling toll free at between the hours of 8AM and 5PM to arrange for our retrieval of the documents at no cost to you. Content Version: 12.2 ?? [phone] [employer]. Care instructions adapted under license by [facility]. If you have questions about a medical condition or this instruction, always ask your healthcare professional. [employer] disclaims any warranty or liability for your [...] questions you can call our clinic at [phone] Treatment of Low Blood Sugar (Hypoglycemia) If your BG is lower than 80, you are likely to feel shaky, sweaty and lightheaded. This is a signalthat your body needs more sugar. Quickly eat or drink a small serving of something sweet, such as: 4 ounces fruit juice or regular (not diet) soda 6 Tangos small box of raisins 4 glucose tablets [...] Zeny James APRN Signed: Larry Longo MD [facility] Surgical Oncology Service Team Pager #[phone] 04/11/2020 6:07 PM documented in this encounter [...] the day after the procedure, use an wzjm-tfz-jrfkauo spray to numb your throat. Sucking on [...] occurs, please contact your Doctor. Please call [phone] before 8pm Mon-Fri with problems, questions or concerns. If you call after 8pm or on weekends, call the Hospital at [phone] and ask to speak to the Mortgage Loan Interviewer conveyor console operator and the receptionist/telephone operator will contact that person for you. [...] any problems. Where can you learn more? [facility] View your After Visit Summary and more online at [email or web address] If you would like to provide feedback about your hospital experience, please call the Office of Patient and Family Relations at . If you have received this After Visit Summary in error, please immediately return it in person to the department, or notify the [facility] Privacy Office by calling toll free at between the hours of 8AM and 5PM to arrange for our retrieval of the documents at no cost to you. Content Version: 12.2 ?? [phone] [employer]. Care instructions adapted under license by [facility]. If you have questions about a medical condition or this instruction, always ask your healthcare professional. [employer] disclaims any warranty or liability for your [...] questions you can call our clinic at [phone] Treatment of Low Blood Sugar (Hypoglycemia) If [...] Longo MD - 03/25/2020 2:04 PM EST [facility] Department of General Surgery Discharge Instructions [...] with the Surgery nurses. The number is [phone]. - During the night or weekends call the [facility] receptionist/telephone operator at [phone] and ask to speak to the surgery resident conveyor console operator for general surgery. Please note: Your surgeon may not be Sleeve Machine Tender, especially during the night or on weekends, [...] hear anything, please call the clinic at [phone] to confirm or reschedule. - A follow-up [...] please call the General Surgery Clinic nurses [phone] for prior authorizations assistance documented in this [...] (E.C.) Take 81 mg by mouth daily. rxwlla-glwnylnz-jkrt ase DR (Creon 24) 24,000-76,000 -120,000 unit [...] gauge x 5/16 Syringe 1 each by [facility].(Non-Drug; Combo Route) route nightly. 30 Syringe 11 04/11/2020 05/19/2020 lancets 33 gauge Misc 1 each by Misc.(Non-Drug; Combo Route) route 3 times daily (before meals). 100 each 11 04/11/2020 05/19/2020 novoLIN R Solution Add 8 units to TPN bag every night 10 mL 12 04/11/2020 05/19/2020 yiptir-xfossqdo-endx ase DR (Creon) 24,000-76,000 -120,000 unit Capsule, Delayed Release(E.C.) Take 1-2 capsules by mouth 3 times daily (with meals). With Meals: Take 1-2 capsules by mouth. With Snacks: Take 1 capsule by mouth. 270 capsule 3 03/31/2020 09/07/2020 CALCIUM CARBONATE-VITAMIN D3 ORAL Take 1 tablet by mouth daily. 01/19/2023 fluticasone propionate (FLONASE) 50 mcg/actuation Halfway, Suspension 1 spray by Each Nare route [...] sent electronically to pt's home pharmacy.Patient left [facility] in a wheelchair accompanied by 2 [place] staff. * Victoria Calle RN - 04/11/2020 10:13 AM EST JORGE bae, Willem and care team (, RD) working on arranging home DC today with TPN and with [facility] home mother to assist. Orders updated. [facility] liaison coordinating. Noé Azevedo to transport home and assist at DC. Victoria Calle RN Pager [phone] * Lora Berg, RD - 04/11/2020 10:00 [...] to discuss plan with provider Team pager #[phone]. Nutrition Support: TPN Formula for Discharge (Show up to 1 orders; newest on the left.) Start date and time 04/11/2020 1800 Adult TPN [[id number]] Order Status Active Macro Ingredients amino acid 15% no.5 (ClinisoL) 110 g dextrose 70% 118 g Electrolytes sodium phosphate 48 mmol potassium chloride 100 mEq sodium chloride 210 mEq Additives trace elements Zn-Cu-Mn-Se 1 mL ascorbic acid (vitamin C) 100 mg Vit M0-J5-V8-B5-B6 (B Complex) 1 mL zinc sulfate 10 [...] 1800 04/09/2020 1800 04/08/2020 1800 Adult TPN [[id number]] TPN Adult [[id number]] TPN Adult [[id number]] Order Status Active Active Last Admin New Bag at 04/10/2020 1759 by Wendy Ruiz RN New Bag at 04/08/2020 1722 by Inez Lan RN Medications insulin regular human 8 Units 8 Units 8 Units Additives trace elements Zn-Cu-Mn-Se 1 mL 1 mL 1 mL ascorbic acid (vitamin C) 100 mg 100 mg 100 mg Vit K0-S4-X9-B5-B6 (B Complex) 1 mL 1 mL 1 [...] encounter: 53.3 kg (117 lb 9.6 oz). [place] Body Weight: 50-55 kg Usual Body Weight: [...] up while inpatient. LORA BERG RD Pager #:[phone] * Larry Longo MD - 04/11/2020 8:18 AM EST Surgical Oncology Inpatient Progress Note Patient Name: Linda MERAZ; Age: 6 1945; 74 y.o. Room/Bed: [address] [place] [address] Today's Date: 04/11/20 ID: Linda Abel is [...] KHRIS Amylase: 03/24: 12: 22 12: 15 12: 327 03/28: 12 [...] Longo MD Surgical Oncology Service Team Pager #[phone] 04/11/20 8:18 AM * Larry Longo MD - 04/10/2020 7:59 AM EST Surgical Oncology Inpatient Progress Note Patient Name: Linda MERAZ; Age: 6 1945; 74 y.o. Room/Bed: [address] [place] [address] Today's Date: 04/10/20 ID: Linda Abel is [...] case. Reconstruction was an intracoporal retromesenteric anddecide (Anishat type) duct to mucosa pancreaticojejunostomy. The pancreatic [...] KHRIS Amylase: 03/24: 03/25: 22 12: 15 03/27: 327 03/28: 12 [...] DM mgmt - Rewire PICC today to [facility] for discharge with [...] Longo MD Surgical Oncology Service Team Pager #[phone] 04/10/20 7:59 AM * Duke Tidwell - 04/09/2020 3:32 PM EST Rental Clerk Tool And Equipment Encounter Note Patient Name: Linda Abel : [id number] MR#: [id number] Admit Date: 03/23/2020 5:51 AM Hospital Day 17 days Narrative: Follow-up visit for continued assessment and support. Pt was sleeping and I will visit an other time. Assessment: Intervention and Outcome: Follow-up: Time in Direct Care: Duke Tidwell 04/09/2020 * Alesha Casillas RN - 04/09/2020 12:54 PM EST OFFICE OF CARE MANAGEMENT Station Mechanic Follow-up Note Alesha Casillas RN reviewed record and discussed patient with Care Team. Patient plan of care discussed in multidisciplinary rounds and assessment for continuing care and discharge needs. Diagnosis: IPMN (intraductal papillary mucinous neoplasm) LOS Hospital: 17 days INSURANCE: Payor: MEDICARE / Plan: MEDICARE PART A & B / Product Type: *No Product type* / SECONDARY INSURANCE: Base CRM [facility] [place] DECISION MAKER: Attempt Cardiopulmonary Resuscitation - Inpatient <no information> Patient continues to require hospitalization. Per team, patient requires inpatient status r/t increasing diet, TPN and c-diff pending results. Discharge date planned for 04/11 if medically ready. SonRob will be here around 1pm and will need a teach with patient. Aury from [facility] will see patient this afternoon and arrange another teach on Monday with patient and son around 1-2pm. [facility] will confirm [facility] will see patient Monday afternoon to complete third teach. Patient understands and has agreed to learn to self administer her TPN. Referred Roberto Carlos from [employer] to see patient as wellfor support. Aury from [facility] will call son and set up today. Friend Inez, Nurse [phone] next to patient will be there to check in as well as a resource for patient but is not able to be available all the time. Son Roberto Carlos has committed to staying with patient x2 weeks and then friend Luba will stay with patient. Asked team to put order in to request to single lumen before discharge. Current Referral in place: [facility] for RN, PT to eval for needs in home, OT Transportation: Son Roberto Carlos will drive patient home via private vehicle when medically ready. Support: Son, friends Station Mechanic to follow with team and family to [...] Body Fluid Culture, Aerobic & Anaerobic Bile [[id number]] Collected: 03/23/20 1346 Lab Status: Final result Specimen: Bile Updated: 03/27/20 1333 Body Fluid Culture, Aerobic [[id number]] Collected: 03/23/20 1346 Lab Status: Final result Specimen: Bile Updated: 03/27/20 1333 Body Fluid Culture No growth Gram Stain -- Cytocentrifuge Gram Stain performed Neutrophils seen No microorganisms seen. Anaerobic Culture [[id number]] Collected: 03/23/20 134 Lab Status: Final result Specimen: Bile Updated: 03/27/20 1117 Anaerobic Culture No anaerobic organisms isolated COVID-19 PCR [[id number]] Collected: 03/20/20 1057 Lab Status: Final result [...] diagnosis of COVID-19 is performed using the [employer] m SARS-CoV-2 Assay as authorized by the FDA Emergency Use Authorization (EUA). This EUA assay is intended for In-vitro Diagnostic (IVD) use with respiratory specimens such as nasopharyngeal swabs collected from individuals during the acute phase of infection. This assay is performed based on the instructions for use provided by [employer] and additional guidance provided by CDC and FDA. Testing is performed in the Clinical Genomics and Advanced Technology Laboratory within the Department of Pathology and Laboratory Medicine at [facility], certified under the Clinical Laboratory Improvement [...] fact sheets at the following FDA website: https://www.fda.gov/medical-devices/hirjpdrfkly-pafcxnc-2702-kjjgs-97-edwibsjob- uwg-bpvdtjicegjtjd-qtcvzms-devices/pjixd-szaxtoframz-fsps SARS-Cov-2 RNA Source GEOPHYSICAL LABORATORY CHIEF Swab Diagnostic Studies: None new Inpatient Medications: [...] clinical changes occur or newquestions arise, page [phone]. Case discussed with Dr. Blas Attending staff [...] 1800 04/08/2020 1800 04/07/2020 1800 TPN Adult [[id number]] TPN Adult [[id number]] TPN Adult [[id number]] Order Status Active Active Last Admin New Bag at 04/08/2020 1722 by Inez Lan RN New Bag at 04/07/2020 1901 by Sanjuanita Mercado RN Medications insulin regular human 8 Units 8 Units 8 Units Additives trace elements Zn-Cu-Mn-Se 1 mL 1 mL 1 mL ascorbic acid (vitamin C) 100 mg 100 mg 100 mg Vit P5-Q3-U8-B5-B6 (B Complex) 1 mL 1 mL 1 [...] encounter: 53.3 kg (117 lb 9.6 oz). [place] Body Weight: 50 kg Usual Body Weight: [...] up while inpatient. JOSUE LORA RD Pager #[phone] * Katie Santamaria APRN - 04/09/2020 10:37 [...] [facility]ocr[facility] Diabetes Management Pager [phone] * Larry Longo MD - 04/09/2020 9:21 [...] Longo MD Surgical Oncology Service Team Pager #[phone] 04/09/20 9:21 AM * Josue Lora RD [...] 1800 04/07/2020 1800 04/06/2020 1800 TPN Adult [[id number]] TPN Adult [[id number]] TPN Adult [[id number]] Order Status Active Active Last Admin New Bag at 04/07/2020 1901 by Sanjuanita Mercado RN New Bag at 04/06/2020 1824 by Maria Esther Blancas RN Medications insulin regular human 8 Units 8 Units 8 Units Additives trace elements Zn-Cu-Mn-Se 1 mL 1 mL 1 mL ascorbic acid (vitamin C) 100 mg 100 mg 100 mg Vit K0-A9-F7-B5-B6 (B Complex) 1 mL 1 mL 1 [...] encounter: 53.3 kg (117 lb 9.6 oz). [place] Body Weight: 50 kg Usual Body Weight: [...] up while inpatient. JOSUE LORA RD Pager #[phone] * Davian Carolina MD - 04/08/2020 8:18 AM EST Surgical Oncology Inpatient Progress Note Patient Name: Linda MERAZ; Age: 6 1945; 74 y.o. Room/Bed: [address] [place] [address] Today's Date: 04/08/20 ID: Linda Abel is [...] Abx started for PNA tx POD 12 12: ROEL POD 13 04/05: ROEL POD 04/06: [...] Mccormack MD Surgical Oncology Service Team Pager #[phone] 04/08/20 8:18 AM Surgery Attending Addendum I [...] she does not meet criteria for a longterm facility. Jennifer Carolina MD 04/08/2020 10:36 AM [...] Body Fluid Culture, Aerobic & Anaerobic Bile [[id number]] Collected: 03/23/20 1346 Lab Status: Final result Specimen: Bile Updated: 03/27/20 1333 Body Fluid Culture, Aerobic [[id number]] Collected: 03/23/20 134 Lab Status: Final result Specimen: Bile Updated: 03/27/20 1333 Body Fluid Culture No growth Gram Stain -- Cytocentrifuge Gram Stain performed Neutrophils seen No microorganisms seen. Anaerobic Culture [[id number]] Collected: 03/23/20 1346 Lab Status: Final result Specimen: Bile Updated: 03/27/20 1117 Anaerobic Culture No anaerobic organisms isolated COVID-19 PCR [[id number]] Collected: 03/20/20 1057 Lab Status: Final result [...] diagnosis of COVID-19 is performed using the [employer] m SARS-CoV-2 Assay as authorized by the FDA Emergency Use Authorization (EUA). This EUA assay is intended for In-vitro Diagnostic (IVD) use with respiratory specimens such as nasopharyngeal swabs collected from individuals during the acute phase of infection. This assay is performed based on the instructions for use provided by [employer] and additional guidance provided by CDC and FDA. Testing is performed in the Clinical Genomics and Advanced Technology Laboratory within the Department of Pathology and Laboratory Medicine at [facility], certified under the Clinical Laboratory Improvement [...] fact sheets at the following FDA website: https://www.fda.gov/medical-devices/zkqgivmxkwb-sbxbodk-5558-gmqlj-70-usamxtkav- lgp-gfqjotdnezfstk-mrsngfi-devices/cxzko-jymmstvjtzn-gptu SARS-Cov-2 RNA Source GEOPHYSICAL LABORATORY CHIEF Swab Diagnostic Studies: None new Inpatient Medications: [...] 3:07 PM EST OFFICE OF CARE MANAGEMENT Station Mechanic Follow-up Note Alesha Casillas RN reviewed record and discussed patient with Care Team. Patient plan of care discussed in multidisciplinary rounds and assessment for continuing care and discharge needs. Diagnosis: IPMN (intraductal papillary mucinous neoplasm) LOS Hospital: 15 days INSURANCE: Payor: MEDICARE / Plan: MEDICARE PART A & B / Product Type: *No Product type* / SECONDARY INSURANCE: [employer] [facility] [place] DECISION MAKER: Attempt Cardiopulmonary [...] Current Referral in place: Demetrio Cervantes, STEPHANIE, [place], [facility], [facility] Transportation: Son will drive patient home via private vehicle when medically ready. Support: Son Station Mechanic to follow with team and family to [...] 1800 04/06/2020 1800 04/03/2020 1800 TPN Adult [[id number]] TPN Adult [[id number]] TPN Adult [[id number]] Order Status Active Active Last Admin New Bag at 04/06/2020 1824 by Maria Esther Blancas RN New Bag at 04/05/2020 1820 by Mervni Grimes, RN Medications insulin regular human 8 Units 8 Units 6 Units Additives trace elements Zn-Cu-Mn-Se 1 mL 1 mL 1 mL ascorbic acid (vitamin C) 100 mg 100 mg -- Vit V0-D9-R5-B5-B6 (B Complex) 1 mL 1 mL 1 [...] encounter: 53.3 kg (117 lb 9.6 oz). [place] Body Weight: 50 kg Usual Body Weight: [...] up while inpatient. JOSUE LORA RD Pager #[phone] * Diego Blas MD - 04/07/2020 11:17 [...] complicated by abdominal pain requiring a dilaudid PHYSICIAN/INTERNIST that was weaned off on 03/28. She [...] asneeded. ??? fluticasone propionate (FLONASE) 50 mcg/actuation Halfway, Suspension 1 spray by Each Nare route [...] N/A 12/05/2019 Mammo Stereotactic Biopsy Left 12/05/2019 [facility] RAD MAMMOGRAPHY ??? MASTECTOMY Right with RT ??? PRO BX/REMV, LYMPH NODE, DEEP AXILL Left 12/20/2019 BIOPSY OR EXCISION OF LYMPH NODE(S), OPEN, DEEP AXILLARY NODE(S) (WRVU 6.43) performed by Susan Rivera MD at [facility] OSC ??? PRO COLONOSCOPY, DIAGNOSTIC 01/07/2014 COLONOSCOPY, DIAGNOSTIC performed by Izzy Johnson MD at [facility] ENDOSCOPY ??? PRO ENDOSCOPIC US EXAM, ESOPH N/A 11/15/2019 UPPER EUS- ENDOSCOPIC ULTRASOUND performed by Ralf Urrutia MD at [facility] ENDOSCOPY ??? PRO INTRAOP SENTINEL LYMPH ID W/DYE INJECTION Left 12/20/2019 INTRAOPERATIVE ID (MAPPING) SENTINEL LYMPH NODE,INCLUDES INJECTION (WRVU 2.5) performed by Susan Rivera MD at [facility] OSC ??? PRO MASTECTOMY, SIMPLE, COMPLETE Left 12/20/2019 MASTECTOMY, SIMPLE, COMPLETE (WRVU 15.85) performed by Susan Rivera MD at [facility] OSC ??? PRO OMENTAL FLAP, INTRA-ABDOMINAL 03/23/2020 @OMENTAL FLAP, INTRA-ABDOMINAL (WRVU 6.54) performed by Davian Caroilna MD at [facility] MAIN OR ??? PRO UNLISTED PX PNCRS N/A 03/23/2020 ROBOTIC PANCREATECTOMY,WHIPPLE, PARTIAL GASTRECTOMY W/ PANCREATOJEJUNOSTOMY performed by Davian Carolina MD at [facility] MAIN OR ??? PRO UPPER GI ENDOSCOPY, DIAGNOSTIC N/A 04/02/2020 EGD, UPPER GI ENDOSCOPY performed by Ralf Urrutia MD at [facility] ENDOSCOPY Family History: Siblings: Sister with breast [...] MD Internal Medicine, PGY3 [place] Pager # [phone] Attending Staff New Consult Documentation We have [...] Resuming HCTZ may be ok in the leather splitter too (patient wants to do so), but would hold off on the thiazide for right now due to mild hyponatremia. DIEGO BLAS MD 04/08/2020 * Alesha Casillas RN - 04/07/2020 10:12 AM EST Based on discussions with the multi-disciplinary healthcare team, the patient would benefit from longterm level of care at discharge. ?? I have met with the patient to discuss discharge planning needs. I have provided the [facility], Office of Care Management letter from the Manager [employer] pertaining to rehab referrals. I have also provided a letter describing [facility] and educatedthem about their right to choose where referrals are. ?? Provided patient with [facility] Star Quality Rating for SNF, LTAC and/or [...] The patient have requested referrals to: 1. [facility] ([facility]) ([facility]) [address] [place] [address] ?? PHONE: [phone] FAX: [phone] 2. [facility] ([facility]) ([facility]) [address] [place] [address] ?? PHONE: [phone] FAX: [phone] 3. [facility] ([facility]) ([facility]) [address] [place] [address] ?? PHONE: [phone] FAX: [phone] ?? Expected date of discharge: 04/10 Note routed to Contract Paralegal who will communicate referrals to facilities and provide any required information. * Edwardo Mccormack MD - 04/07/2020 7:42 AM EST Surgical Oncology Inpatient Progress Note Patient Name: Linda MERAZ; Age: 6 1945; 74 y.o. Room/Bed: [facility]A Today's Date: 04/07/20 ID: Linda Abel is [...] Mccormack MD Surgical Oncology Service Team Pager #[phone] 04/07/20 7:42 AM * Davian Carolina MD [...] sips and chips Hospital Course: POD 0 12/7: To OR for robotic WhippROEL garcia post-op. [...] (117 lb 9.6 oz) Labs: Recent Labs 04/06/200 04/05/20 0110 04/04/20 0326 WBC 16.7* 21.4* 20.5* HGB 9.2* 9.9* 9.1* HCT 27.3* 30.0* 27.1* PLATELET 445* 444* 367* Recent Labs 04/06/20 01304/05/20 0110 04/04/20 0326 NA 137 134* 134* [...] Mccormack MD Surgical Oncology Service Team Pager #[phone] 04/06/20 1:18 PM Surgery attending addendum I [...] and I would not exactly call the [id number]. I called and spoke to her son Roberto Carlos who is down in [place] and I agree that at this point the best option for Maricruz given that she will need to be on TPN will be for her to go to a swing bed type facility either at [facility] or at [facility]. We had previously hoped that she would be able to go homeand no clear was working on VNA with [facility] for the TPN but basically given the remote location where she lives up in [place], [place] and the lack of support she essentially will not beable to go home with TPN and I think we need to start really considering the swing bed options as mentioned above at [facility] or at [facility]. This assumes all goes well with her NG tube out. We alsomay need to reengage medicine to help with her hypertension as this is been quite a refractory issue during this hospitalization and we need their help. Jennifer Carolina MD 04/06/2020 5:29 PM This note was created using [employer] voice recognition software. * Josue Lora RD [...] 1800 04/03/2020 1800 03/27/2020 1800 TPN Adult [[id number]] TPN Adult [[id number]] TPN Adult [[id number]] Order Status Active Active Discontinued Last Admin New Bag at 04/05/2020 1820 by Mervin Grimes, RN New Bag at 03/29/2020 1949 by Ness Cummings, RN Medications insulin regular human 8 Units 6 Units -- Additives trace elements Zn-Cu-Mn-Se 1 mL 1 mL 1 mL ascorbic acid (vitamin C) 100 mg -- -- Vit J1-R6-S3-B5-B6 (B Complex) 1 mL 1 mL 1 [...] encounter: 53.3 kg (117 lb 9.6 oz). [place] Body Weight: 50 kg Usual Body Weight: [...] up while inpatient. JOSUE LORA RD Pager #[phone] * Alesha Casillas RN - 04/06/2020 10:24 AM EST OFFICE OF CARE MANAGEMENT Station Mechanic Follow-up Note Alesha C Kilbride, RN reviewed record and discussed patient with Care Team. Patient plan of care discussed in multidisciplinary rounds and assessment for continuing care and discharge needs. Diagnosis: IPMN (intraductal papillary mucinous neoplasm) LOS Hospital: 14 days INSURANCE: Payor: MEDICARE / Plan: MEDICARE PART A & B / Product Type: *No Product type* / SECONDARY INSURANCE: [facility] DECISION MAKER: Attempt Cardiopulmonary Resuscitation - Inpatient <no information> Patient continues to require hospitalization. Per team, patient requires inpatient status r/t dc N/G tube today. On sips and chips. Discharge date planned for 04/08 if medically ready. Current Referral in place: [facility] for RN. Added PT, OT. [facility] routed for TPN supportif needed. Transportation: Son will drive patient home via private vehicle when medically ready. Support: Son Station Mechanic to follow with team and family to [...] Total Evaluation Minutes, Occupational Therapy: 45 Pager: [phone] PEPITO Kirk Plan updated by OT to [...] [facility] Diabetes Management Pager [phone] * Davian Carolina MD - 04/06/2020 7:09 [...] Murillo MD Surgical Oncology Service Team Pager #[phone] 04/05/20 3:52 PM * Davian Carolina MD - 04/04/2020 10:14 AM EST Surgical Oncology Inpatient Progress Note Patient Name: Linda MERAZ; Age: 6 1945; 74 y.o. Room/Bed: [address] [place] [address]-A Today's Date: 04/04/20 ID: Linda Abel is [...] Amylase: 03/24: 26 9: 22 12: 15 12: 327 12: 12 Micro: Bile [...] Murillo MD Surgical Oncology Service Team Pager #[phone] 04/04/20 10:14 AM Surgery Attending Addendum I [...] her son-Roberto Carlos who is down in [place] to chat about the plan going forward. [...] MD 04/04/2020 This note was created using [employer] ([employer] voice recognition software. Jennifer Carolina MD * [...] time 04/03/2020 1800 03/27/2020 1800 TPN Adult [[id number]] TPN Adult [[id number]] Order Status Active Discontinued Last Admin New Bag at 03/29/2020 1949 by Ness Cummings, RN Medications insulin regular human 6 Units -- Additives trace elements Zn-Cu-Mn-Se 1 mL 1 mL Vit W9-C6-C8-B5-B6 (B Complex) 1 mL 1 mL zinc [...] encounter: 53.3 kg (117 lb 9.6 oz). [place] Body Weight: 50 kg Usual Body Weight: [...] up while inpatient. JOSUE LORA RD Pager #[phone] * Alesha Casillas RN - 04/03/2020 12:26 PM EST This patient requires infusion therapy for TPN. A letter describing our affiliations was reviewed with them and they were educated about their right to choose where referrals are placed. Request referral to [place], [place] for TPN or . Expected date of discharge: 04/07/2020. Patient will require teaching. Referral routed to the Contract Paralegal for matching with agency/vendor and to provide any required information. * Olayinka Ojeda OTA - 04/03/2020 11:02 AM EST Occupational Therapy Treatment Note Treatment Number OT: 4 Patient Dx: Linda Abel is a 74 y.o. female admitted on 03/23/2020 with H main duct IPMN,??now Post-Op??s/p robotic whipple on [...] Total Evaluation Minutes, Occupational Therapy: 15 Pager: [phone] PEPITO Kirk Occupational Therapy Rehabilitation Department * Rosalio Katie L, MANAGER ACUTE - 04/03/2020 9:06 AM EST Follow Up [...] [facility] Diabetes Management Pager [phone] 20 minutes of this 35 minute visit [...] MERAZ; Age: 6 1945; 74 y.o. Room/Bed: [address] [place], [place] [address]A Today's Date: 04/03/20 ID: Linda Abel is [...] Amylase: 03/24: 26 12: 22 1210: 15 12/11: 327 12: 12 [...] Murillo MD Surgical Oncology Service Team Pager #[phone] 04/03/20 7:49 AM * Patricia Jordan, PT [...] at a later time. Olayinka BEYER Pager: [phone] * Josue Lora RD - 04/02/2020 12:44 [...] date and time 03/27/2020 1800 TPN Adult [[id number]] Order Status Discontinued Last Admin New Bag at 03/29/2020 1949 by Ness Cummings, RN Additives trace elements Zn-Cu-Mn-Se 1 mL Vit P6-O4-T9-B5-B6 (B Complex) 1 mL zinc sulfate 10 [...] encounter: 53.3 kg (117 lb 9.6 oz). [place] Body Weight: 50 kg Usual Body Weight: [...] up while inpatient. JOSUE LORA RD Pager #[phone] * Davian Carolina MD - 04/02/2020 8:15 AM EST Surgical Oncology Inpatient Progress Note Patient Name: Linda MERAZ; Age: 6 1945; 74 y.o. Room/Bed: [address] [place] [address] Today's Date: 04/02/20 ID: Linda Abel is [...] 26 9: 22 1210: 15 1211: 327 03/28: 12 [...] Mccormack MD Surgical Oncology Service Team Pager #[phone] 04/02/20 10:58 AM Surgery Attending Addendum I [...] minimal contrast passing downthe efferent limb. See open claims representative image below. I placed an NG [...] [facility] - 04/01/2020 3:28 PM EST Rental Clerk Tool And Equipment Encounter Note Patient Name: Linda Abel : [id number] MR#: [id number] Admit Date: 03/23/2020 5:51 AM Hospital Day 9 days Narrative: Follow-up visit for continued assessment and support. Patient was not available for visit and I will visit an other time. Assessment: Intervention and Outcome: Follow-up: Time in Direct Care: [facility] Tidwell 04/01/2020 * Alesha Casillas RN - 04/01/2020 11:17 AM EST OFFICE OF CARE MANAGEMENT Station Mechanic Follow-up Note Alesha Casillas RN reviewed record and discussed patient with Care Team. Patient plan of care discussed in multidisciplinary rounds and assessment for continuing care and discharge needs. Diagnosis: IPMN (intraductal papillary mucinous neoplasm) LOS Hospital: 9 days INSURANCE: Payor: MEDICARE / Plan: MEDICARE PART A & B / Product Type: *No Product type* / SECONDARY INSURANCE: [employer] [facility] DECISION MAKER: Attempt Cardiopulmonary Resuscitation - Inpatient <no information> Patient continues to require hospitalization. Per team, patient requires inpatient status r/t nausea, Ct scan, rechecking labs. Discharge date planned for if medically ready. / Current Referral in place: [facility] for RN Transportation: Son will drive patient home via private vehicle when medically ready. Support: Son Station Mechanic to follow with team and family to assist with discharge needs when patient ready for discharge. Alesha Casillas RN Case Management pgr [phone] * Davian Carolina MD - 04/01/2020 9:13 AM EST Surgical Oncology Inpatient Progress Note Patient Name: Linda Abel DOB; Age: 6 1945; 74 y.o. Room/Bed: [address] [place], [place] [address] Today's Date: 04/01/20 ID: Linda Abel is [...] Mccormack MD Surgical Oncology Service Team Pager #[phone] 04/01/20 9:13 AM Surgery attending addendum I [...] 9:34 AM This note was created using [employer] voice recognition software. * Gina Greer RN - 03/31/2020 2:58 PM EST Diabetes Clinical Nurse Specialist Met with Mrs. Abel to discuss diabetes prevention. Pt was found to have pre-diabetes (HbA1c 5.8%) and is now S/P [place] on 03/23/20. Encouraged pt to eat a [...] She had a regular diet, tolerated well. Hose Inspector to bedside to speak w/ pt. Adequate [...] after suppository yesterday - BP readings from E have improved significantly SBP 120-140s, continues to [...] Total Evaluation Minutes, Occupational Therapy: 23 Pager: [phone] PEPITO Kirk Occupational Therapy Rehabilitation Department * [...] nutrient intake and support healing ?? Added Lao yogurt with meals and reviewed foods for [...] encounter: 53.3 kg (117 lb 9.6 oz). [place] Body Weight: 50 kg Usual Body Weight: [...] regime. She states she had poor appetite [employer] SALESPERSON and wonders if some of her elevated A1C [employer]OM[employer] ACCESS[employer] SALESPERSON was due to an unusually higher intake [...] up while inpatient JANET GRIMES RD Pager #:[phone] * Lisa Villa, AUT[employer] ACCESS[employer] SALESPERSON - 03/31/2020 9:04 AM EST Physical Therapy [...] her, FOS to upstairs bedroom, PICC placed [employer] SALESPERSON pt was independent, drives, feisty* DME: None Precautions/Special Considerations:no BPs RUE, PICC, NGT, NPO, confusion, PHYSICIAN/INTERNIST, Calderón and drains Lapsites, L breast incision [...] of the patient. Time IN / OUT: 9433-1447 Total Evaluation Minutes, Physical Therapy: 16(TEF 1) Lisa Villa PTA Pager: [phone] Physical Therapy Inpatient Rehabilitation Department * Davian Carolina MD - 03/31/2020 7:26 AM EST Surgical Oncology Inpatient Progress Note Patient Name: Linda Abel DOB; Age: 6 1945; 74 y.o. Room/Bed: [facility]/207-A Today's Date: 03/31/20 ID: Linda Abel is [...] after suppository yesterday - BP readings from [facility] have improved significantly SBP 120-140s, continues to [...] Mccormack MD Surgical Oncology Service Team Pager #[phone] 03/31/20 7:23 AM Surgery attending addendum I [...] 2:36 PM This note was created using [employer] voice recognition software. * Elma Zacarias MD [...] 11:26 AM EST OFFICE OF CARE MANAGEMENT Station Mechanic Follow-up Note Alesha Casillas RN reviewed record and discussed patient with Care Team. Patient plan of care discussed in multidisciplinary rounds and assessment for continuing care and discharge needs. Diagnosis: IPMN (intraductal papillary mucinous neoplasm) LOS Hospital: 7 days INSURANCE: Payor: MEDICARE / Plan: MEDICARE PART A & B / Product Type: *No Product type* / SECONDARY INSURANCE: [facility] [place] DECISION MAKER: Attempt Cardiopulmonary [...] private vehicle when medically ready. Support: Son Station Mechanic to follow with team and family to assist with discharge needs when patient ready for discharge. Alesha Casillas RN Case Management pgr [phone] * Davian Carolina MD - 03/30/2020 7:05 AM EST Surgical Oncology Inpatient Progress Note Patient Name: iLnda MERAZ; Age: 6 1945; 74 y.o. Room/Bed: [address] [place] [address] Today's Date: 03/30/20 ID: Linda Abel is [...] Amylase: 03/24: 26 129: 22 03/26: 15 1211: 327 03/28: 12 Micro: Bile [...] Mccormack MD Surgical Oncology Service Team Pager #[phone] 03/30/20 7:05 AM Surgery Attending Addendum I [...] morning. Denies pain, managed with scheduled medications. PHYSICIAN/INTERNIST d/c'd. Diet increased to Regular diet, tolerating [...] med for her); PRNs for >160mmHg Discontinue PHYSICIAN/INTERNIST - transition to PO pain meds. NEURO: [...] Kang MD Surgical Oncology Service Team Pager #[phone] 03/29/20 9:57 AM Surgery Attending Addendum I [...] 12:33 PM This note was created using [employer]) voice recognition software. * Raj Kang MD - 03/28/2020 12:50 PM EST KHRIS drain and NGT removed this morning, Patient tolerated well without issue. Nurse updated. Raj Kang MD Raj Naidu MD - 03/28/2020 10:02 AM EST Surgical Oncology Inpatient Progress Note Patient Name: Linda MERAZ; Age: 6 1945; 74 y.o. Room/Bed: /-A Today's Date: 03/28/20 ID: Linda Abel is [...] tube in overnight Hospital Course: POD 0 12/7: To OR [...] lb 9.6 oz) Labs: Recent Labs 03/28/20 01403/27/200 03/26/20144 WBC 6.9 7.6 9.4 HGB 11.3* 11.7 [...] Kang MD Surgical Oncology Service Team Pager #[phone] 03/28/20 10:02 AM * Olayinka Ojeda OTA [...] Total Evaluation Minutes, Occupational Therapy: 30 Pager: [phone] PEPITO Kirk Occupational Therapy Rehabilitation Department * Davian Carolina MD - 03/27/2020 12:38 PM EST Surgical Oncology Inpatient Progress Note Patient Name: Linda MERAZ; Age: 6 1945; 74 y.o. Room/Bed: [address] [place] [address]-A Today's Date: 03/27/20 ID: Linda Abel is [...] was so tiny and required an interrupted Blumgart-Derba type hepaticojejunostomy with 5-0 PDS. In testinal [...] YE MD Surgical Oncology Service Team Pager #[phone] 03/27/20 12:38 PM Surgery Attending Addendum I [...] Jennifer Carolina MD 03/27/2020 * Josue Lora, JOSE MANUEL - 03/27/2020 12:31 PM EST Nutrition Progress [...] date and time 03/27/2020 1800 TPN Adult [[id number]] Order Status Active Additives trace elements Zn-Cu-Mn-Se 1 mL Vit J2-R5-P5-B5-B6 (B Complex) 1 mL zinc sulfate 10 [...] of this encounter: 54.9 kg (121 lb). [place] Body Weight: 50 kg Usual Body Weight: [...] up while inpatient. JOSUE LORA RD Pager #[phone] * Marisa Lance - 03/27/2020 10:20 AM [...] since 03/23/20, please obtain updated weight. Marisa Coco Natalio Pager: [phone] * Alesha Casillas RN - 03/26/2020 12:43 PM EST OFFICE OF CARE MANAGEMENT Station Mechanic Follow-up Note Alesha Casillas RN reviewed record and discussed patient with Care Team. Patient plan of care discussed in multidisciplinary rounds and assessment for continuing care and discharge needs. Diagnosis: IPMN (intraductal papillary mucinous neoplasm) LOS Hospital: 3 days INSURANCE: Payor: MEDICARE / Plan: MEDICARE PART A & B / Product Type: *No Product type* / SECONDARY INSURANCE: [facility] DECISION MAKER: Attempt Cardiopulmonary Resuscitation - Inpatient <no information> Patient continues to require hospitalization. Per team, patient requires inpatient status r/t needing a CTA today. LFT increasing. Discharge date planned for 03/30 if medically ready. Current Referral in place: [facility] for RN Transportation: Son will drive patient home via private vehicle when medically ready. Support: Son Station Mechanic to follow with team and family to assist with discharge needs when patient ready for discharge. Alesha Casillas RN Case Management pgr [phone] * Paty Kenney MD - 03/26/2020 10:00 AM EST Surgical Oncology Inpatient Progress Note Patient Name: Linda Abel DOB; Age: 6 1945; 74 y.o. Room/Bed: 207/[facility]-A Today's Date: 03/26/20 ID: Linda Abel is [...] kg (121 lb) Labs: Recent Labs 03/26/20 01403/25/20 0155 03/24/20 0828 03/23/20 1830 WBC 9.4 [...] Kenney MD Surgical Oncology Service Team Pager #[phone] 03/26/20 10:00 AM * Maria Esther Blancas RN - 03/25/2020 5:14 PM EST OUTCOME EVALUATION NOTE: OUTCOME SUMMARY: Patient received. A&O throughout shift. Patient continues to have elevated BP throughout shift.Up to 190s systolic BP, JESUS ALBERTO Jordna and MD Ye notified. Meds administered per orders, will continue to monitor. Patient experiencing more trust with staff, then previous shifts. Anxiety has decreased throughout the day. Ambulated X3 in the hallway. Pain well controlled with PHYSICIAN/INTERNIST. Not passing gas, no BM, adequate urine [...] robotic whipple current risk factors include: PICC, PHYSICIAN/INTERNIST, acute pain, recent surgery, tubes/drains, and generalizedweakness. [...] her, FOS to upstairs bedroom, PICC placed [employer] SALESPERSON pt was independent, drives, feisty* DME: None Precautions/Special Considerations:no BPs RUE, PICC, NGT, NPO, confusion, PHYSICIAN/INTERNIST, Calderón and drains Lapsites, L breast incision [...] Pain: comfortable at rest, minimal use of PHYSICIAN/INTERNIST, ?? Vital Signs: SpO2: 95% on 2L, [...] (P) 15 TEF PATRICIA JORDAN, PT Pager: [phone] Physical Therapy Inpatient Rehabilitation Department * Meera [...] N/A 12/05/2019 Mammo Stereotactic Biopsy Left 12/05/2019 [facility] RAD MAMMOGRAPHY ??? MASTECTOMY Right with RT ??? PRO BX/REMV, LYMPH NODE, DEEP AXILL Left 12/20/2019 BIOPSY OR EXCISION OF LYMPH NODE(S), OPEN, DEEP AXILLARY NODE(S) (WRVU 6.43) performed by Susan Rivera MD at [facility] OSC ??? PRO COLONOSCOPY, DIAGNOSTIC 01/07/2014 COLONOSCOPY, DIAGNOSTIC performed by Izzy Johnson MD at [facility] ENDOSCOPY ??? PRO ENDOSCOPIC US EXAM, ESOPH N/A 11/15/2019 UPPER EUS- ENDOSCOPIC ULTRASOUND performed by Ralf Urrutia MD at [facility] ENDOSCOPY ??? PRO INTRAOP SENTINEL LYMPH ID W/DYE INJECTION Left 12/20/2019 INTRAOPERATIVE ID (MAPPING) SENTINEL LYMPH NODE,INCLUDES INJECTION (WRVU 2.5) performed by Susan Rivera MD at [facility] OSC ??? 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 Precautions/Special Considerations: Fall risk, PICC, NG tube [...] been seen for occupational therapy evaluation. Linda Able presents with the following performance skill deficits [...] 59.67% limited in ADL performance per the [facility]. Patient is well below her baseline [...] and measurable assessment of functional outcome. Pager: [phone] Meera Salinas OT 03/25/2020 Occupational Therapy Rehabilitation Department * Alice Ye R - 03/25/2020 1:33 PM EST Surgical Oncology Inpatient Progress Note Patient Name: Linda MERAZ; Age: 6 1945; 74 y.o. Room/Bed: [facility] Today's Date: 03/25/20 ID: Linda Abel is [...] YE MD Surgical Oncology Service Team Pager #[phone] 03/25/20 1:33 PM * Beatriz Singh RN [...] emphysema, continue to encourage appropriate usage of PHYSICIAN/INTERNIST. Would be good to get OOB today. [...] YE MD Surgical Oncology Service Team Pager #[phone] 03/24/20 9:51 AM Surgery attending addendum I [...] that is improved when she pushes her PHYSICIAN/INTERNIST button. O: Temp: [36.3 ??C (97.3 ??F)-37 [...] Result Value Ref Range Surgical Pathology Report [id number] Location: OR; OR09; A The signing pathologist has (i) examined the relevant preparation(s) for the specimen(s) and (ii) rendered or confirmed the diagnosis(es). . Frozen Section FROZEN SECTION DIAGNOSIS _BFS1,2 Pancreatic neck margin: Negative for tumor 03/23/20 13:12 Electronically signed by: Hiro Burton MD Verified: 03/23/2020 Pathologist Performed at: -[facility] Dept. of Pathology, [place], [place] This intraoperative consultation should be interpreted [...] to the planned procedure. Hand Hygiene: The health information technician did perform hand hygiene prior to line insertion. Catheter type: PICC Lot number: [id number] Procedure Technique: Skin was prepped with chlorhexidine. [...] to the planned procedure. Hand Hygiene: The health information technician did perform hand hygiene prior to line insertion. Catheter type: PICC Lot number: [id number] Procedure Technique: Skin was prepped with chlorhexidine. [...] EST OUTCOME EVALUATION NOTE: ?? OUTCOME SUMMARY: Pt??pain??/10 in back, managed w/ heat pack.??Pt bps [...] ADLs]:?Eyes on ?? Surveillance [continuous indirect monitoring]:?? kia hourly rounding, room near unit station, NKE at bedside, environmental modifications (clutter-free environment, tubing secured, bed low, lighting adjusted, nonskid socks when OOB, bed wheels locked, call light with in reach, upper side rails x2, ID bands on) ?? Patient-specific fall prevention interventions for sensory deficits provided, if applicable:?[X]Yes??wears glasses ? * Plan of Care - [facility], Maria Esther Stoner RN - 04/06/2020 3:55 [...] OUTCOME EVALUATION: * Plan of Care - Lenadro Henderson RN - 04/03/2020 1:32 AM EST [...] Operative Note Patient Name: Linda Abel : [id number] MR#: [id number] Case Date: 04/02/2020 Surgeon: Surgeon(s) and Role: * Ralf Urrutia MD - Primary Preoperative diagnosis: Post Whipple Postoperative diagnosis: * No post-op diagnosis entered * Procedure(s): EGD, UPPER GI ENDOSCOPY Please see Provation report for details. * Consult Note - LizlissaChela - 04/02/2020 11:10 AM EST GASTROENTEROLOGY & HEPATOLOGY CONSULTATION Initial Consult Note Requesting Provider: Davian Carolina MD REASON FOR CONSULTATION Nausea/vomiting s/p Whipple HISTORY OF PRESENT ILLNESS Linda Abel is a 74 y.o. PMHX breast cancer s/p mastectomy, main duct IPMN s/p Whipple with [id number] 10 days ago. GI consulted for worsening [...] file Gets together: Not on file Attends mandaen service: Not on file Active member of [...] mastectomy, main duct IPMN s/p Whipple with [id number] 10 days ago. GI consulted for worsening [...] M.D. Fellow in Gastroenterology and Hepatology Pager #[phone] 04/02/2020 Associated attestation - Ralf Urrutia MD [...] Reason for Consult: Management of Hypertension HPI: Lnida Abel is a 74 y.o. female with PMHx significant for HTN and a pancreatic main duct IPMN who received a Robotic Whipple on 03/23. Her post-operative course was complicated by abdominal pain requiring a dilaudid PHYSICIAN/INTERNIST that was weaned off on 03/28. She [...] Diagnosis Date ??? Basal cell carcinoma 2009 [facility]-back ??? Breast cancer Meds: No [...] Inhaler ??? fluticasone propionate (FLONASE) 50 mcg/actuation Halfway, Suspension 1 spray daily. ??? Creon 24,000-76,000 [...] N/A 12/05/2019 Mammo Stereotactic Biopsy Left 12/05/2019 [facility] RAD MAMMOGRAPHY ??? MASTECTOMY Right with RT ??? PRO BX/REMV, LYMPH NODE, DEEP AXILL Left 12/20/2019 BIOPSY OR EXCISION OF LYMPH NODE(S), OPEN, DEEP AXILLARY NODE(S) (WRVU 6.43) performed by Susan Rivera MD at [facility] OSC ??? PRO COLONOSCOPY, DIAGNOSTIC 01/07/2014 COLONOSCOPY, DIAGNOSTIC performed by Izzy Johnson MD at [facility] ENDOSCOPY ??? PRO ENDOSCOPIC US EXAM, ESOPH N/A 11/15/2019 UPPER EUS- ENDOSCOPIC ULTRASOUND performed by Ralf Urrutia MD at [facility] ENDOSCOPY ??? PRO INTRAOP SENTINEL LYMPH ID W/DYE INJECTION Left 12/20/2019 INTRAOPERATIVE ID (MAPPING) SENTINEL LYMPH NODE,INCLUDES INJECTION (WRVU 2.5) performed by Susan Rivera MD at [facility] OSC ??? PRO MASTECTOMY, SIMPLE, COMPLETE Left 12/20/2019 MASTECTOMY, SIMPLE, COMPLETE (WRVU 15.85) performed by Susan Rivera MD at [facility] OSC ??? PRO OMENTAL FLAP, INTRA-ABDOMINAL 03/23/2020 @OMENTAL FLAP, INTRA-ABDOMINAL (WRVU 6.54) performed by Davian Carolina MD at [facility] MAIN OR ??? PRO UNLISTED PX PNCRS N/A 03/23/2020 ROBOTIC PANCREATECTOMY,WHIPPLE, PARTIAL GASTRECTOMY W/ PANCREATOJEJUNOSTOMY performed by Davian Carolina MD at [facility] MAIN OR Family History: Siblings: Sister with [...] petechiae Laboratory: CBC: Recent Labs 03/31/20 0636 03/30/200 03/29/20 012 WBC 9.0 10.4* 6.8 HGB [...] MD Internal Medicine, PGY3 BETHANY Pager # [phone] Associated attestation - Nataly Leggett MD - [...] low normal I have asked Gina Greer [facility] CDE to meet with her to provide [...] complicated by abdominal pain requiring a dilaudid PHYSICIAN/INTERNIST that was weaned off on 03/28. She [...] Diagnosis Date ??? Basal cell carcinoma 2009 [facility]-back ??? Breast cancer Meds: No [...] Inhaler ??? fluticasone propionate (FLONASE) 50 mcg/actuation Halfway, Suspension 1 spray daily. ??? Creon 24,000-76,000 [...] N/A 12/05/2019 Mammo Stereotactic Biopsy Left 12/05/2019 [facility] RAD MAMMOGRAPHY ??? MASTECTOMY Right with RT ??? PRO BX/REMV, LYMPH NODE, DEEP AXILL Left 12/20/2019 BIOPSY OR EXCISION OF LYMPH NODE(S), OPEN, DEEP AXILLARY NODE(S) (WRVU 6.43) performed by Susan Rivera MD at [facility] OSC ??? PRO COLONOSCOPY, DIAGNOSTIC 01/07/2014 COLONOSCOPY, DIAGNOSTIC performed by Izzy Johnson MD at [facility] ENDOSCOPY ??? PRO ENDOSCOPIC US EXAM, ESOPH N/A 11/15/2019 UPPER EUS- ENDOSCOPIC ULTRASOUND performed by Ralf Urrutia MD at [facility] ENDOSCOPY ??? PRO INTRAOP SENTINEL LYMPH ID W/DYE INJECTION Left 12/20/2019 INTRAOPERATIVE ID (MAPPING) SENTINEL LYMPH NODE,INCLUDES INJECTION (WRVU 2.5) performed by Susan Rivera MD at [facility] OSC ??? PRO MASTECTOMY, SIMPLE, COMPLETE Left 12/20/2019 MASTECTOMY, SIMPLE, COMPLETE (WRVU 15.85) performed by Susan Rivera MD at [facility] OSC ??? PRO OMENTAL FLAP, INTRA-ABDOMINAL 03/23/2020 @OMENTAL FLAP, INTRA-ABDOMINAL (WRVU 6.54) performed by Davian Carolina MD at [facility] MAIN OR ??? PRO UNLISTED PX PNCRS N/A 03/23/2020 ROBOTIC PANCREATECTOMY,WHIPPLE, PARTIAL GASTRECTOMY W/ PANCREATOJEJUNOSTOMY performed by Davian Carolina MD at [facility] MAIN OR Family History: Siblings: Sister with [...] Laboratory: CBC: Recent Labs 03/30/20 0120 03/29/20 01203/28/20144 WBC 10.4* 6.8 6.9 HGB 12.0 [...] MD Internal Medicine, PGY3 BETHANY Pager # [phone] Associated attestation - Nataly Leggett MD - [...] pain 2-3/10 pain today, managed well with PHYSICIAN/INTERNIST. Pt tolerating clears w/o nausea or emesis. AUOP, no BM this shift. Pt bps 160-170s/90-100s overnight, md aware, given 2x labetalol per md orders. Pt resting between care. ?? PLAN MOVING FORWARD: Manage pain; wean PHYSICIAN/INTERNIST Monitor I&Os Encourage OOB, ambulation ?? INDIVIDUALIZED [...] reporting 3/10 pain today, managed well with PHYSICIAN/INTERNIST. NGT and KHRIS drain removed this morning [...] PLAN MOVING FORWARD: ?? Manage pain; wean PHYSICIAN/INTERNIST OOB activities; ROBF ?? INDIVIDUALIZED FALL PREVENTION [...] OUTCOME SUMMARY: ?? Pain well controlled with PHYSICIAN/INTERNIST this shift. VSS.Tolerating sips &??chips diet, no [...] fall risk factors per assessment: [current deficits]:?PICC, PHYSICIAN/INTERNIST, Pain, recent surgery, tubes/drains, generalized weakness ? [...] pain this shift, reporting good management with PHYSICIAN/INTERNIST. NGT clamped this morning by MD Carolina~1000, [...] PLAN MOVING FORWARD: ?? Manage pain; wean PHYSICIAN/INTERNIST OOB activities; ROBF ?? INDIVIDUALIZED FALL PREVENTION [...] OUTCOME SUMMARY: ?? Pain well controlled with PHYSICIAN/INTERNIST this shift. VSS.Tolerating sips &??chips diet, no [...] fall risk factors per assessment: [current deficits]:?PICC, PHYSICIAN/INTERNIST, Pain, recent surgery, tubes/drains, generalized weakness ? [...] Outcome: Ongoing (Interventions Implemented as Appropriate) 03/26/20 0450 Discharge Needs Assessment Discharge Disposition still a patient Goal: Interdisciplinary Rounds/Family Conf Outcome: Ongoing (Interventions Implemented as Appropriate) 03/26/20449 Interdisciplinary Rounds/Family Conf Participants patient;nursing * Plan of Care - Wendy Ruiz RN - 03/26/2020 3:44 PM EST OUTCOME EVALUATION NOTE: OUTCOME SUMMARY: ?? Pt reported minimal pain this shift, managed well with PHYSICIAN/INTERNIST. Pt went to CT scan this morning, [...] PLAN MOVING FORWARD: ?? Manage pain; wean PHYSICIAN/INTERNIST OOB activities; ROBF Wean O2 ?? INDIVIDUALIZED [...] NOTE: OUTCOME SUMMARY: Pain well controlled with PHYSICIAN/INTERNIST this shift. VSS.Tolerating sips & chips diet, [...] risk factors per assessment: [current deficits]: PICC, PHYSICIAN/INTERNIST, Pain, recent surgery, tubes/drains, generalized weakness ?? [...] NOTE: OUTCOME SUMMARY: Pain well controlled with PHYSICIAN/INTERNIST. Patient tachycardic in the 110's this shift, [...] risk factors per assessment: [current deficits]: PICC, PHYSICIAN/INTERNIST, Pain, recent surgery, tubes/drains, generalized weakness Assistance [...] draining CYU adequately, -flatus/-BM, periorbital swelling noted, PHYSICIAN/INTERNIST controlling pain, down for PICC line d/t inadequate IV access/inability to draw labs d/t no IV/BP on R arm, double lumen PICC in place, C/D/I, MIVF, worked with PT/OT, pt resting comfortably between nursing care, bed in lowest position, call light within reach PLAN MOVING FORWARD: Increase mobilization Pain control/wean PHYSICIAN/INTERNIST Increase diet DC planning INDIVIDUALIZED FALL PREVENTION INTERVENTIONS: Patient-specific fall risk factors per assessment: [current deficits]: Impaired mobility, recent post-op, LDAs, narcotic medication, hospital environment Assistance [level of assistance required for transfers and ambulation]: 1 person assist with FWW Supervision [direct monitoring required during toileting and ADLs]: Eyes on hands on Surveillance [continuous indirect monitoring]: Masomero, purposeful hourly rounding Patient-specific fall prevention interventions [...] (PICC) Teaching Sheet Peripherally inserted central catheters (agrl-wj-rlcd) (PICC) are used when you need IV [...] midline catheter? PICC lines are used for leather splitter treatments. PICC lines may be used for [...] can be set up via the nurse Station Mechanic to help you. What are possible complications [...] N/A 12/05/2019 Mammo Stereotactic Biopsy Left 12/05/2019 [facility] RAD MAMMOGRAPHY ??? MASTECTOMY Right with RT ??? PRO BX/REMV, LYMPH NODE, DEEP AXILL Left 12/20/2019 BIOPSY OR EXCISION OF LYMPH NODE(S), OPEN, DEEP AXILLARY NODE(S) (WRVU 6.43) performed by Susan Rivera MD at [facility] OSC ??? PRO COLONOSCOPY, DIAGNOSTIC 01/07/2014 COLONOSCOPY, DIAGNOSTIC performed by Izzy Johnson MD at [facility] ENDOSCOPY ??? PRO ENDOSCOPIC US EXAM, ESOPH N/A 11/15/2019 UPPER EUS- ENDOSCOPIC ULTRASOUND performed by Ralf Urrutia MD at [facility] ENDOSCOPY ??? PRO INTRAOP SENTINEL LYMPH ID W/DYE INJECTION Left 12/20/2019 INTRAOPERATIVE ID (MAPPING) SENTINEL LYMPH NODE,INCLUDES INJECTION (WRVU 2.5) performed by Susan Rivera MD at [facility] OSC ??? PRO MASTECTOMY, SIMPLE, COMPLETE Left 12/20/2019 MASTECTOMY, SIMPLE, COMPLETE (WRVU 15.85) performed by Susan Rivera MD at [facility] OSC Social History: Pt lives alone in a multi level home with 3 steps to enter. Son is coming to stay with her [employer] SAL[employer] pt was independent, drives, feisty* DME: None Precautions/Special Considerations:no BPs RUE, PICC to be placed, NGT, NPO, confusion, PHYSICIAN/INTERNIST, Calderón and drains Lap sites, L breast [...] the surgery??? Oh, I'm back thinking like sashamagi, I already had surgery I double mask Objective: Pt seen for evaluation today. Pain: Pushed PHYSICIAN/INTERNIST x 1, abdominal discomfort, Vital Signs: SpO2: [...] pt and answered all questions, spoke with charge preparation technician re: private room when possible, as pt [...] Therapy: (P) 25 PATRICIA JORDAN, PT Pager: [phone] Physical Therapy Inpatient Rehabilitation Department * Initial [...] Diagnosis Date ??? Basal cell carcinoma 2010 [facility]-back ??? Breast cancer Hospitalizations Within the Past 30 Days: None Anticipated Length Of Stay (If known): 03/30 Admission order confirmed/dated: Davian Carolina MD 02/24/20 1111 Current Decision-Making Capacity: Self, A&Ox3, Full Capacity Advance Care Planning: Attempt Cardiopulmonary Resuscitation - Inpatient <no information> If AD's have not been completed Roberto Carlos would be surrogate decision maker per [place] surrogate decision making law. (Only good for 90 days) Any patient receiving care at [facility] must abide by [place] law. The hierarchy for surrogate decision making [...] (i) The agent with financial power of brim shaper or a conservator appointed in accordance with [...] and a full flight to bedroom [address] [facility] [phone] Social & Family Supports/Community Resources: DALJIT Umanzor Extended Emergency Contact Information Primary Emergency Contact: Roberto Carlos Baum, [place] [address] [address] Relation: Child Secondary Emergency Contact: [place] [address] [facility] Mobile Relation: Son/Ytvpahua-vm-ftb Behavioral Health History: Denies Other Pertinent/Service Specific Information: No Health/Prescription Coverage: Primary Insurance: MEDICARE Payor: MEDICARE / Plan: MEDICARE PART A & B / Product Type: *No Product type* / Secondary Insurance: [facility] Prescription Coverage: Medicare D Preferred Pharmacy: [facility] - [place], [place] - [address] [place] [id number] [facility] - [address] [place] [address] [address] [facility] [address] Primary Care Provider: Zeny James APRN [phone] Patient/Caregiver Goals of Treatment: feel better Potential Needs for Transition of Care: Rehab/SNF: n/a Home Health: The patient has been provided a list of Home Health Agencies placed. Provided patient with [facility] Star Quality Rating for Home care. Patient requests referral to [facility] For RN PHONE: [phone] FAX: [phone]. Expected date of discharge: 03/30. Referral routed to the Contract Paralegal for matching with agency/vendor and to provide any required information. DME: n/a Community Resources: No Transportation: Son Dialysis: n/a Anticipated Barriers to Discharge/Special Considerations: None Assessment: [facility] for RN routed and orders pended. Patient [...] transition of care planning. Alesha Casillas RN pressure vessel inspector Pager: [phone] * Plan of Care - Ness Cummings RN - 03/24/2020 1:24 AM EST OUTCOME EVALUATION NOTE: OUTCOME SUMMARY: Patient arrived from PACU to room 210A at 2223 . A&O x4. VSS. Pain 09/24, managed with PHYSICIAN/INTERNIST and scheduled IV Tylenol. Frequent reminders given to use PHYSICIAN/INTERNIST. Remains on 3L NC over night. Subcutaneous [...] per assessment: [current deficits]: Recent surgery, pain, PHYSICIAN/INTERNIST, infusing PIV, general weakness Assistance [level of [...] Operative Note Patient Name: Linda Abel : [id number] MR#: [id number] Case Date: 03/23/2020 Surgeon: Surgeon(s) and Role: * Davian Carolina MD - Primary Registered Nurse Congressional Representative: Whitney Rangel RN Preoperative diagnosis: IPMN Postoperative [...] margin, pancreatic neck margin- FROZEN Blue-vascular groove\ [place]-SMA RM09 [id number] IPMN Head of pancreas, antrum, duodenum excision YES, Please perform frozen section No 03/23/2020 12:38 PM Number of tissue samples (in container) 1 Time specimen removed from patient: 12:33 PM SPECIMEN TO PATHOLOGY Gallbladder and omentum RM 09 [id number] IPMN Gallbladder and omentum excision No 03/23/2020 12:44 PM Time specimen removed from patient: 12:43 PM Number of tissue samples (in container) 1 Biospecimen to store? No PATHOLOGY ORDER UPDATE Gallbladder only 03/23/2020 12:51 PM Additional information: Correction Enter requested changes: Gallbladder eD-H Order Id number [id number] PATHOLOGY ORDER UPDATE Head of pancreas, antrum, duodenum & OMENTUM 03/23/2020 12:51 PM Additional information: Additional Info Enter requested changes: omentum eD-H Order Id number [id number] Drains: Drain/Device Site 12/20/19 1301 Left breast [...] Next, we placed the 15 mm laparoscopic virtual customer assistant port in the right mid rectus [...] the robotic portion of the operation. The Sequentai Xi patient cart was brought in and [...] The proximal jejunum was divided using the Pickens stapler (white load). The specimen side of [...] was divided using 2 firings of the Pickens stapler (green load and a blue load). [...] lateral extent exposing both the vein of Diana superiorly and the first jejunal branch inferiorly. [...] then ligated and divided the vein of [place] across metal clips at its insertion with [...] trocars and extended the 15 mm lap virtual customer assistant port for approximately an additional 3 [...] and extracted through the 15 mm laparoscopic virtual customer assistant port via a Endo Catch specimen [...] complete we turned our attention to the urrb-ty-gtfidb stitches. An tiny enterotomy was created immediately [...] a 3-0V lock stitch as a running Seymour stitch. A second layer of running Lembert type stitches was placed on the anterior with 2-0 Silk an outer layer to complete the anastomosis. The anastomosis was noted to sit nicely without torsion or outflow obstruction at the efferent jejunal limb. With the reconstruction complete we introduced a 19 Yoruba Darius drain via the most right lateral [...] new suction and cautery at closure: No Hjhayrino-dlgjoxjos-oiwqwkbwga abdominal cavity wash: No Ahvtwtjmv-hllxuqkvi-qyhfdrarfq wound wash: No Attestation: Case Date: 03/23/2020 I performed this procedure without the involvement of a resident. DAVIAN CAROLINA MD 03/23/2020 documented in this encounter Plan of Treatment Upcoming Encounters Date Type Department Care Team (Late st Contact Info) Description 01/01/2025 2:00 PM EDT Office Visit Hematology/Oncology at [address] [phone] Jeffery Sanz MD [facility] DR HEMATOLOGY [place] [address] Mary Nails APRN [address] [place] [address] [place] [address] 01/01/2025 2:30 PM EDT Infusion Hematology Oncology at [address] [phone] 01/14/2025 11:00 AM EDT Laboratory Appointment Lab [address] [place] [address] 01/14/2025 1:[address] Scan at [facility] [place] [address] Davian Carolina MD [facility] [place] [address] 01/14/2025 2:00 PM EDT Office Visit General Surgery at [facility] [place] [address] Davian Carolina MD [facility] [place] [address] Scheduled Referrals Name Type Priority Associated Diagnoses [...] 03/23/2020 9:25 AM EST Omental Flap, Intra-Abdominal ([id number]) 03/23/2020 7:43 AM EST IPMN MODIFIER ROBOT,DAVINCI XI 03/23/2020 7:43 AM EST IPMN Unlisted Px Pncrs ([id number]) 03/23/2020 7:43 AM EST IPMN ABORH RECHECK STATUS Routine 03/23/2020 7:24 AM EST ABO/RH TYPING Routine 03/23/2020 7:24 AM EST ANTIBODY SCREEN Routine 03/23/2020 7:24 AM EST HC ABO-MICROTITER Routine 03/23/2020 7:2 4 AM EST documented in this encounter Results * Prealbumin (09/28/2020 11:52 AM EDT) Prealbumin 21 20 - 40 mg/dL [facility] Comment: Prealbumin levels are generally lower in the pediatric population; adult concentrations are usually attained near puberty. Blood 09/28/2020 11:5 2 AM EDT 09/28/2020 12:17 PM EDT Narrative Resulting Agency Comment Spec In Lab Anjelica Jordan APRN CHEMISTRY ORDERA BLES [facility] [place] [address] * (ABNORMAL) Comprehensive metabolic panel (non-fasting) (09/28/2020 11:52 AM EDT) Glucose 127 65 - 199 mg/dL [facility] Comment:Diabetes: >=200 mg/d L plus symptoms Blood Urea Nitrogen 16 8 - 18 mg/dL [facility] Creatinine 0.65(L) 0.70 - 1.20 mg/dL [facility] Sodium 136 135 - 145 mmol/L [facility] Potassium 4.0 3.5 - 5.0 mmol/L [facility] Comment: Please note: ??Patients with WBC >100,000 may have falsely elevated Potassium levels. ??For accurate Potassium quantification in these patients send serum separator tube (gold top) for subsequent determinations. ??Contact the Clinical Chemistry Laboratory if there are any questions. Chloride 101 98 - 107 mmol/L [facility] Carbon Dioxide 25 22 - 31 mmol/L [facility] Anion Gap 10 5 - 15 mmol/L [facility] Calcium 9.0 8.5 - 10.5 mg/dL [facility] Protein, Total 6.5 6.1 - 8.0 gm/dL [facility] Albumin 4.1 3.2 - 5.2 gm/dL [facility] Aspartate Aminotransferase 28 0 - 30 unit/L [facility] Alanine Aminotransferase 27 0 - 30 unit/L [facility] Alkaline Phosphatase 148(H) 35 - 105 unit/L [facility] Bilirubin, Total 0.3 0.2 - 1.3 mg/dL [facility] Est Glomerular Filtration Rate 88 >=60 mL/min/1. 73 m?? [facility] Comment: This patient? s [...] Agency Comment Spec In Lab Anjelica Jordan MANAGER ACUTE CHEMISTRY ORDERA BLES [facility] [place] [address] * POCT Glucose (04/11/2020 12:02 PM EST) Glucose, POC 150 65 - 199 mg/dL [facility] Comment: Supplemental ranges: <140 mg/dL before meals <180 mg/dL all other times of the day Blood specimen (specimen) 04/11/2020 12:02 PM EST 04/11/2020 12:02 PM EST Davian Carolina MD POINT OF CARE TEST ORDERABLES Performing Organization Address City/[facility]/ZIP Co de Phone Number [facility] [place] [address] * POCT Glucose (04/11/2020 7:43 AM EST) Glucose, POC 162 65 - 199 mg/dL [facility] Comment: Supplemental ranges: <140 mg/dL before meals <180 mg/dL all other times of the day Blood specimen (specimen) 04/11/2020 7:43 AM EST 04/11/2020 7:43 AM EST Davian Carolina MD POINT OF CARE TEST ORDERABLES Performing Organization Address City/[facility]/ZIP Co de Phone Number [facility] [place] [address] * (ABNORMAL) Differential, Automated (04/11/2020 5:35 AM EST) Neutrophil % 75.6 % [facility] Neutrophil Absolute 9.98(H) 1.70 - 6.10 x10(3)/[facility] LABORAT[facility] Lymph % 9.9 % [facility] Lymphocytes Abs 1.3 0.9 - 3.2 x10(3)/[facility] LABORATORY Monocyte % 7.6 % [facility] Monocyte Abs 1.0(H) 0.3 - 0.9 x10(3)/[facility] LABORATORY Eos % 3.9 % [facility] Eosinophils Abs 0.5(H) 0.0 - 0.4 x10(3)/[facility] LABORATORY Basophil % 0.7 % [facility] Baso Absolute 0.1 0.0 - 0.1 x10(3)/[facility]ORAT[facility] Immature Gran % 2.30 % [facility] Comment: Immature granulocytes(IG's)percentage and absolute count will include metamyelocytes, myelocytes, and promyelocytes. Blood smears from CBCs yielding IG's will be scanned manually for concordance. If this scan disagrees with the automated IG or if promyelocytes are noted, a manual differential will be performed. Immature Gran Absolute 0.31(H) 0.00 - 0.04 x10(3)/[facility] Blood specimen (specimen) 04/11/2020 5:35 AM EST 04/11/2020 5:43 AM EST Narrative Resulting Agency Comment Spec In Lab Anjelica Jordan APRN HEMATOLOGY ORDER MAGAN [facility] [place] [address] * (ABNORMAL) Hemogram (04/11/2020 5:35 AM EST) Pathologist [facility] White Blood Cell 13.2(H) 4.0 - 9.5 x10(3)/ L [facility] Red Blood Cell 3.22(L) 4.00 - 5.21 x10(6)/ L [facility] Hemoglobin 9.7(L) 11.7 - 15.5 gm/dL [facility] Hematocrit 29.4(L) 35.7 - 45.8 % [facility] Mean Cell Volume 91.3 82.6 - 94.4 fL [facility] Mean Cell Hemoglobin 30.1 27.1 - 32.0 pg [facility] Mean Cell Hemoglobin Concentration 33.0 31.7 - 35.0 gm/dL [facility] Platelet 371(H) 145 - 357 x10(3)/[facility]ATORY RDW Standard Deviation 44.1 37.0 - 46.0 fL [facility] RDW coefficient of variation 13.2 11.5 - 14.1 % [facility] Mean Platelet Volume 10.1 7.6 - 12.9 fL [facility] NRBC% auto 0.0 % [facility] NRBC Absolute 0.000 0.000 - 0.000 x10(3)/[facility] Blood specimen (specimen) 04/11/2020 5:35 AM EST 04/11/2020 5:43 AM EST Narrative Resulting Agency Comment Spec In Lab Anjelica Jordan APRN HEMATOLOGY ORDER MAGAN [facility] [place] [address] * Phosphorus (04/11/2020 5:35 AM EST) Phosphorus 3.4 2.5 - 4.5 mg/dL [facility] Blood specimen (specimen) 04/11/2020 5:35 AM EST 04/11/2020 5:43 AM EST Narrative Resulting Agency Comment Spec In Lab Anjelica Jordan MANAGER ACUTE CHEMISTRY ORDERA BLES Performing Organization Address City/[facility]/ZIP Co de Phone Number [facility] [place] [address] * Magnesium (04/11/2020 5:35 AM EST) Magnesium 0.69 0.69 - 1.07 mmol/L [facility] Blood specimen (specimen) 04/11/2020 5:35 AM EST 04/11/2020 5:43 AM EST Narrative Resulting Agency Comment Spec In Lab Anjelica Jordan MANAGER ACUTE CHEMISTRY ORDERA BLES Performing Organization Address [facility] Co de Phone Number [facility] [place] [phone] * (ABNORMAL) Basic Metabolic Panel (non-fasting) (04/11/2020 5:35 AM EST) Pathologist [facility] Glucose 165 65 - 199 mg/dL [facility] Comment:Diabetes: >=200 mg/d L plus symptoms Blood Urea Nitrogen 15 8 - 18 mg/dL [facility] Creatinine 0.34(L) 0.70 - 1.20 mg/dL [facility] Sodium 130(L) 135 - 145 mmol/L [facility] Potassium 4.3 3.5 - 5.0 mmol/L [facility] Comment: Please note: ??Patients with WBC >100,000 may have falsely elevated Potassium levels. ??For accurate Potassium quantification in these patients send serum separator tube (gold top) for subsequent determinations. ??Contact the Clinical Chemistry Laboratory if there are any questions. Chloride 99 98 - 107 mmol/L [facility] Carbon Dioxide 25 22 - 31 mmol/L [facility] Anion Gap 6 5 - 15 mmol/L [facility] Calcium 7.7(L) 8.5 - 10.5 mg/dL [facility] Est Glomerular Filtration Rate 109 >=60 mL/min/1. 73 m?? [facility] Comment: This patient? s [...] APRN CHEMISTRY ORDERA BLES Performing Organization Address [facility] [facility] Co de Phone Number [facility] [place] [address] * POCT Glucose (04/11/2020 3:37 AM EST) Glucose, POC 184 65 - 199 mg/dL [facility] Comment: Supplemental ranges: <140 mg/dL before meals <180 mg/dL all other times of the day Blood specimen (specimen) 04/11/2020 3:37 AM EST 04/11/2020 3:37 AM EST Davian Carolina MD POINT OF CARE TEST ORDERABLES Performing Organization Address [facility]/ZIP Co de Phone Number [facility] [place] [address] * POCT Glucose (04/11/2020 12:32 AM EST) Glucose, POC 181 65 - 199 mg/dL [facility] Comment: Supplemental ranges: <140 mg/dL before meals <180 mg/dL all other times of the day Blood specimen (specimen) 04/11/2020 12:32 AM EST 04/11/2020 12:32 AM EST Davian Carolina MD POINT OF CARE TEST ORDERABLES Performing Organization Address City/[facility]/ZIP Co de Phone Number [facility] [place] [address] * POCT Glucose (04/10/2020 8:55 PM EST) Glucose, POC 174 65 - 199 mg/dL [facility] Comment: Supplemental ranges: <140 mg/dL before meals <180 mg/dL all other times of the day Blood specimen (specimen) 04/10/2020 8:55 PM EST 04/10/2020 8:55 PM EST Davian Carolina MD POINT OF CARE TEST ORDERABLES Performing Organization Address [facility] Co de Phone Number [facility] [place] [address] * POCT Glucose (04/10/2020 5:32 PM EST) Glucose, POC 168 65 - 199 mg/dL [facility] Comment: Supplemental ranges: <140 mg/dL before meals <180 mg/dL all other times of the day Blood specimen (specimen) 04/10/2020 5:32 PM EST 04/10/2020 5:32 PM EST Davian Carolina MD POINT OF CARE TEST ORDERABLES Performing Organization Address [facility] Co de Phone Number [facility] [place] [address] * POCT Glucose (04/10/2020 1:22 PM EST) Glucose, POC 167 65 - 199 mg/dL [facility] Comment: Supplemental ranges: <140 mg/dL before meals <180 mg/dL all other times of the day Blood specimen (specimen) 04/10/2020 1:22 PM EST 04/10/2020 1:22 PM EST Davian Carolina MD POINT [place] [address] * XR PICC Placement Over 5 Years [...] Electronically signed by: Maria Esther Gaines MD, [facility] ([phone]), at 04/10/2020 12:18 PM Narrative 04/10/2020 12:18 [...] lower SVC. Preliminary report signed by: Andrew Melagr at 04/10/2020 11:47 AM I have personally [...] to the planned procedure. Hand Hygiene: The health information technician did perform hand hygiene prior to line insertion. Catheter type: PICC Lot number: [id number] Procedure Technique: Skin was prepped with chlorhexidine. [...] (ABNORMAL) POCT Glucose (04/10/2020 8:08 AM EST) [facility] Glucose, POC 220(H) 65 - 199 mg/dL [facility] Comment: Supplemental ranges: <140 mg/dL before meals <180 mg/dL all other times of the day Blood specimen (specimen) 04/10/2020 8:08 AM EST 04/10/2020 8:08 AM EST Davian Carolina MD POINT OF CARE TEST ORDERABLES [facility] [place] [address] * (ABNORMAL) Differential, Automated (04/10/2020 3:14 AM EST) [facility] Neutrophil % 64.4 % [facility] Neutrophil Absolute 8.46(H) 1.70 - 6.10 x10(3)/mc L [facility] Lymph % 14.2 % [facility] Lymphocytes Abs 1.9 0.9 - 3.2 x10(3)/mc L [facility] Monocyte % 9.8 % [facility] Monocyte Abs 1.3(H) 0.3 - 0.9 x10(3)/[facility] Eos % 7.2 % [facility] Eosinophils Abs 0.9(H) 0.0 - 0.4 x10(3)/[facility] Basophil % 0.8 % [facility] Baso Absolute 0.1 0.0 - 0.1 x10(3)/[facility] Immature Gran % 3.60 % [facility] Comment: Immature granulocytes(IG's)percentage and absolute count will include metamyelocytes, myelocytes, and promyelocytes. Blood smears from CBCs yielding IG's will be scanned manually for concordance. If this scan disagrees with the automated IG or if promyelocytes are noted, a manual differential will be performed. Immature Gran Absolute 0.47(H) 0.00 - 0.04 x10(3)/[facility] Blood specimen (specimen) 04/10/2020 3:14 AM EST 04/10/2020 3:21 AM EST Narrative Resulting Agency Comment Spec In Lab Anjelica Jordan APRN HEMATOLOGY ORDER MAGAN [facility] [place] [address] * (ABNORMAL) Hemogram (04/10/2020 3:14 AM EST) White Blood Cell 13.1(H) 4.0 - 9.5 x10(3)/[facility] Red Blood Cell 3.17(L) 4.00 - 5.21 x10(6)/[facility] Hemoglobin 9.6(L) 11.7 - 15.5 gm/dL [facility] Hematocrit 28.6(L) 35.7 - 45.8 % [facility] Mean Cell Volume 90.2 82.6 - 94.4 fL [facility] Mean Cell Hemoglobin 30.3 27.1 - 32.0 pg [facility] Mean Cell Hemoglobin Concentration 33.6 31.7 - 35.0 gm/dL [facility] Platelet 429(H) 145 - 357 x10(3)/mc L [facility] RDW Standard Deviation 42.9 37.0 - 46.0 fL [facility] RDW coefficient of variation 13.0 11.5 - 14.1 % [facility] Mean Platelet Volume 10.2 7.6 - 12.9 fL [facility] NRBC% auto 0.0 % [facility] NRBC Absolute 0.000 0.000 - 0.000 x10(3)/mc L [facility] Blood specimen (specimen) 04/10/2020 3:14 AM EST 04/10/2020 3:21 AM EST Narrative Resulting Agency Comment Spec In Lab Anjelica Jordan APRN HEMATOLOGY ORDER MAGAN Performing Organization Address City/[facility]/ZIP Co de Phone Number [facility] [place] [address] * Phosphorus (04/10/2020 3:14 AM EST) Phosphorus 3.4 2.5 - 4.5 mg/dL [facility] Blood specimen (specimen) 04/10/2020 3:14 AM EST 04/10/2020 3:21 AM EST Narrative Resulting Agency Comment Spec In Lab Anjelica Jordan MANAGER ACUTE CHEMISTRY ORDERA BLES Performing Organization Address City/[facility]/ZIP Co de Phone Number [facility] [place] [address] * (ABNORMAL) Magnesium (04/10/2020 3:14 AM EST) Magnesium 0.64(L) 0.69 - 1.07 mmol/L [facility] Blood specimen (specimen) 04/10/2020 3:14 AM EST 04/10/2020 3:21 AM EST Narrative Resulting Agency Comment Spec In Lab Anjelica Alcaraz Nikki JESUS ALBERTO CHEMISTRY ORDERA GEE [facility] [place] [address] * (ABNORMAL) Basic Metabolic Panel (non-fasting) (04/10/2020 3:14 AM EST) Glucose 156 65 - 199 mg/dL [facility] Comment:Diabetes: >=200 mg/d L plus symptoms Blood Urea Nitrogen 16 8 - 18 mg/dL [facility] Creatinine 0.35(L) 0.70 - 1.20 mg/dL [facility] Sodium 131(L) 135 - 145 mmol/L [facility] Potassium 3.9 3.5 - 5.0 mmol/L [facility] Comment: Please note: ??Patients with WBC >100,000 may have falsely elevated Potassium levels. ??For accurate Potassium quantification in these patients send serum separator tube (gold top) for subsequent determinations. ??Contact the Clinical Chemistry Laboratory if there are any questions. Chloride 100 98 - 107 mmol/L [facility] Carbon Dioxide 24 22 - 31 mmol/L [facility] Anion Gap 7 5 - 15 mmol/L [facility] Calcium 7.6(L) 8.5 - 10.5 mg/dL [facility] Est Glomerular Filtration Rate 108 >=60 mL/min/1. 73 m?? [facility] Comment: This patient? s [...] Agency Comment Spec In Lab Anjelica Jordan MANAGER ACUTE CHEMISTRY ORDERA BLES Performing Organization Address City/[facility]/ZIP Co de Phone Number [facility] [place] [address] * POCT Glucose (04/10/2020 3:09 AM EST) Glucose, POC 155 65 - 199 mg/dL [facility] Comment: Supplemental ranges: <140 mg/dL before meals <180 mg/dL all other times of the day Blood specimen (specimen) 04/10/2020 3:09 AM EST 04/10/2020 3:09 AM EST Davian Carolina MD POINT OF CARE TEST ORDERABLES Performing Organization Address [facility] Co de Phone Number [facility] [place] [address] * POCT Glucose (04/10/2020 12:45 AM EST) Glucose, POC 179 65 - 199 mg/dL [facility] Comment: Supplemental ranges: <140 mg/dL before meals <180 mg/dL all other times of the day Blood specimen (specimen) 04/10/2020 12:45 AM EST 04/10/2020 12:45 AM EST Davian Carolina MD POINT OF CARE TEST ORDERABLES Performing Organization Address City/[facility]/ZIP Co de Phone Number [facility] [place] [address] * POCT Glucose (04/09/2020 8:11 PM EST) Glucose, POC 184 65 - 199 mg/dL [facility] Comment: Supplemental ranges: <140 mg/dL before meals <180 mg/dL all other times of the day Blood specimen (specimen) 04/09/2020 8:11 PM EST 04/09/2020 8:11 PM EST Davian Carolina MD POINT OF CARE TEST ORDERABLES Performing Organization Address [facility] Co de Phone Number [facility] [place] [address] * POCT Glucose (04/09/2020 4:59 PM EST) Glucose, POC 167 65 - 199 mg/dL [facility] Comment: Supplemental ranges: <140 mg/dL before meals <180 mg/dL all other times of the day Blood specimen (specimen) 04/09/2020 4:59 PM EST 04/09/2020 4:59 PM EST Davian Carolina MD POINT OF CARE TEST ORDERABLES Performing Organization Address [facility] Co de Phone Number [facility] [place] [address] * POCT Glucose (04/09/2020 1:16 PM EST) Glucose, POC 180 65 - 199 mg/dL [facility] Comment: Supplemental ranges: <140 mg/dL before meals <180 mg/dL all other times of the day Blood specimen (specimen) 04/09/2020 1:16 PM EST 04/09/2020 1:16 PM EST Davian Carolina MD POINT OF CARE TEST ORDERABLES Performing Organization Address City/[facility] Co de Phone Number [facility] [place] [address] * POCT Glucose (04/09/2020 8:05 AM EST) Glucose, POC 181 65 - 199 mg/dL [facility] Comment: Supplemental ranges: <140 mg/dL before meals <180 mg/dL all other times of the day Blood specimen (specimen) 04/09/2020 8:05 AM EST 04/09/2020 8:05 AM EST Davian Carolina MD POINT OF CARE TEST ORDERABLES Performing Organization Address [facility] Phone Number [facility] [place] [address] * POCT Glucose (04/09/2020 5:18 AM EST) Glucose, POC 145 65 - 199 mg/dL [facility] Comment: Supplemental ranges: <140 mg/dL before meals <180 mg/dL all other times of the day Blood specimen (specimen) 04/09/2020 5:18 AM EST 04/09/2020 5:18 AM EST Davian Carolina MD POINT OF CARE TEST ORDERABLES Performing Organization Address [facility] Phone Number [facility] [place] [address] * POCT Glucose (04/09/2020 12:52 AM EST) Glucose, POC 169 65 - 199 mg/dL [facility] Comment: Supplemental ranges: <140 mg/dL before meals <180 mg/dL all other times of the day Blood specimen (specimen) 04/09/2020 12:52 AM EST 04/09/2020 12:52 AM EST Davian Carolina MD POINT OF CARE TEST ORDERABLES Performing Organization Address [facility] Phone Number [facility] [place] [address] * (ABNORMAL) Differential, Automated (04/09/2020 12:30 AM EST) Neutrophil % 62.3 % [facility] Neutrophil Absolute 8.42(H) 1.70 - 6.10 x10(3)/mc L [facility] Lymph % 13.7 % [facility] Lymphocytes Abs 1.8 0.9 - 3.2 x10(3)/mc L [facility] Monocyte % 11.0 % [facility] Monocyte Abs 1.5(H) 0.3 - 0.9 x10(3)/[facility] LABORATORY Eos % 7.2 % [facility] Eosinophils Abs 1.0(H) 0.0 - 0.4 x10(3)/[facility] LABORATORY Basophil % 0.9 % [facility] Baso Absolute 0.1 0.0 - 0.1 x10(3)/[facility] LABORATORY Immature Gran % 4.90 % [facility] Comment: Immature granulocytes(IG's)percentage and absolute count will include metamyelocytes, myelocytes, and promyelocytes. Blood smears from CBCs yielding IG's will be scanned manually for concordance. If this scan disagrees with the automated IG or if promyelocytes are noted, a manual differential will be performed. Immature Gran Absolute 0.66(H) 0.00 - 0.04 x10(3)/[facility] LABORATORY Blood specimen (specimen) 04/09/2020 12:30 AM EST 04/09/2020 1:16 AM EST Narrative Resulting Agency Comment Spec In Lab Anjelica Jordan APRN HEMATOLOGY ORDER MAGAN [facility] [place] [address] * (ABNORMAL) Hemogram (04/09/2020 12:30 AM EST) White Blood Cell 13.5(H) 4.0 - 9.5 x10(3)/[facility] LABORATORY Red Blood Cell 3.38(L) 4.00 - 5.21 x10(6)/[facility] LABORATORY Hemoglobin 10.1(L) 11.7 - 15.5 gm/dL [facility] Hematocrit 30.4(L) 35.7 - 45.8 % [facility] Mean Cell Volume 89.9 82.6 - 94.4 fL [facility] Mean Cell Hemoglobin 29.9 27.1 - 32.0 pg [facility] Mean Cell Hemoglobin Concentration 33.2 31.7 - 35.0 gm/dL [facility] Platelet 426(H) 145 - 357 x10(3)/mc L [facility] RDW Standard Deviation 43.6 37.0 - 46.0 fL [facility] RDW coefficient of variation 13.1 11.5 - 14.1 % [facility] Mean Platelet Volume 9.9 7.6 - 12.9 fL [facility] NRBC% auto 0.0 % [facility] NRBC Absolute 0.000 0.000 - 0.000 x10(3)/mc L [facility] Blood specimen (specimen) 04/09/2020 12:30 AM EST 04/09/2020 1:16 AM EST Narrative Resulting Agency Comment Spec In Lab Anjelica Jordan MANAGER ACUTE HEMATOLOGY ORDER MAGAN Performing Organization Address City/[facility]/ZIP Co de Phone Number [facility] [place] [address] * Phosphorus (04/09/2020 12:30 AM EST) Phosphorus 2.7 2.5 - 4.5 mg/dL [facility] Blood specimen (specimen) 04/09/2020 12:30 AM EST 04/09/2020 1:16 AM EST Narrative Resulting Agency Comment Spec In Lab Anjelica Jordan MANAGER ACUTE CHEMISTRY ORDERA BLES Performing Organization Address City/[facility]/ZIP Co de Phone Number [facility] [place] [address] * Magnesium (04/09/2020 12:30 AM EST) Magnesium 0.78 0.69 - 1.07 mmol/L [facility] Blood specimen (specimen) 04/09/2020 12:30 AM EST 04/09/2020 1:16 AM EST Narrative Resulting Agency Comment Spec In Lab Anjelica Jordan JESUS ALBERTO CHEMISTRY ORDERA GEE [facility] [place] [address] * (ABNORMAL) Basic Metabolic Panel (non-fasting) (04/09/2020 12:30 AM EST) Glucose 157 65 - 199 mg/dL [facility] Comment:Diabetes: >=200 mg/d L plus symptoms Blood Urea Nitrogen 15 8 - 18 mg/dL [facility] Creatinine 0.31(L) 0.70 - 1.20 mg/dL [facility] Sodium 133(L) 135 - 145 mmol/L [facility] Potassium 3.9 3.5 - 5.0 mmol/L [facility] Comment: Please note: ??Patients with WBC >100,000 may have falsely elevated Potassium levels. ??For accurate Potassium quantification in these patients send serum separator tube (gold top) for subsequent determinations. ??Contact the Clinical Chemistry Laboratory if there are any questions. Chloride 102 98 - 107 mmol/L [facility] Carbon Dioxide 23 22 - 31 mmol/L [facility] Anion Gap 8 5 - 15 mmol/L [facility] Calcium 7.7(L) 8.5 - 10.5 mg/dL [facility] Est Glomerular Filtration Rate 112 >=60 mL/min/1. 73 m?? [facility] Comment: This patient? s [...] Agency Comment Spec In Lab Anjelica Jordan MANAGER ACUTE CHEMISTRY ORDERA BLES Performing Organization Address [facility] Co de Phone Number [facility] [place] [address] * POCT Glucose (04/08/2020 9:03 PM EST) Glucose, POC 169 65 - 199 mg/dL [facility] Comment: Supplemental ranges: <140 mg/dL before meals <180 mg/dL all other times of the day Blood specimen (specimen) 04/08/2020 9:03 PM EST 04/08/2020 9:03 PM EST Davian Carolina MD POINT OF CARE TEST ORDERABLES Performing Organization Address [facility] Co de Phone Number [facility] [place] [address] * C. Difficile Screen (04/08/2020 5:52 PM EST) Pathologist [facility] C Diff Interp Negative Negative [facility] Comment: [...] - GEN ERAL ORDERABLES Performing Organization Address [facility] Co de Phone Number [facility] [place] [address] * POCT Glucose (04/08/2020 3:42 PM EST) Glucose, POC 127 65 - 199 mg/dL [facility] Comment: Supplemental ranges: <140 mg/dL before meals <180 mg/dL all other times of the day Blood specimen (specimen) 04/08/2020 3:42 PM EST 04/08/2020 3:42 PM EST Davian Carolina MD POINT OF CARE TEST ORDERABLES [facility] [place] [address] * POCT Glucose (04/08/2020 12:31 PM EST) Glucose, POC 167 65 - 199 mg/dL [facility] Comment: Supplemental ranges: <140 mg/dL before meals <180 mg/dL all other times of the day Blood specimen (specimen) 04/08/2020 12:31 PM EST 04/08/2020 12:31 PM EST Davian Carolina MD POINT OF CARE TEST ORDERABLES Performing Organization Address [facility]/ZIP Co de Phone Number [facility] [place] [address] * POCT Glucose (04/08/2020 7:28 AM EST) Glucose, POC 199 65 - 199 mg/dL [facility] Comment: Supplemental ranges: <140 mg/dL before meals <180 mg/dL all other times of the day Blood specimen (specimen) 04/08/2020 7:28 AM EST 04/08/2020 7:28 AM EST Davian Carolina MD POINT OF CARE TEST ORDERABLES Performing Organization Address City/[facility]/ZIP Co de Phone Number [facility] [place] [address] * POCT Glucose (04/08/2020 3:25 AM EST) Glucose, POC 146 65 - 199 mg/dL [facility] Comment: Supplemental ranges: <140 mg/dL before meals <180 mg/dL all other times of the day Blood specimen (specimen) 04/08/2020 3:25 AM EST 04/08/2020 3:25 AM EST Davian Carolina MD POINT OF CARE TEST ORDERABLES [facility] [place] [address] * (ABNORMAL) Differential, Automated (04/08/2020 12:30 AM EST) Neutrophil % 69.8 % [facility] Neutrophil Absolute 11.23(H) 1.70 - 6.10 x10(3)/[facility] LABORATORY Lymph % 10.5 % [facility] Lymphocytes Abs 1.7 0.9 - 3.2 x10(3)/[facility] LABORATORY Monocyte % 11.2 % [facility] Monocyte Abs 1.8(H) 0.3 - 0.9 x10(3)/[facility] LABORATORY Eos % 4.0 % [facility] Eosinophils Abs 0.6(H) 0.0 - 0.4 x10(3)/[facility] LABORATORY Basophil % 0.6 % [facility] Baso Absolute 0.1 0.0 - 0.1 x10(3)/[facility] LABORATORY Immature Gran % 3.90 % [facility] Comment: Immature granulocytes(IG's)percentage and absolute count will include metamyelocytes, myelocytes, and promyelocytes. Blood smears from CBCs yielding IG's will be scanned manually for concordance. If this scan disagrees with the automated IG or if promyelocytes are noted, a manual differential will be performed. Immature Gran Absolute 0.63(H) 0.00 - 0.04 x10(3)/ L [facility] Blood specimen (specimen) 04/08/2020 12:30 AM EST 04/08/2020 12:38 AM EST Narrative Resulting Agency Comment Spec In Lab Anjelica Jordan APRN HEMATOLOGY ORDER MAGAN [facility] [place] [address] * (ABNORMAL) Hemogram (04/08/2020 12:30 AM EST) White Blood Cell 16.1(H) 4.0 - 9.5 x10(3)/mc L [facility] Red Blood Cell 3.24(L) 4.00 - 5.21 x10(6)/mc L [facility] Hemoglobin 9.8(L) 11.7 - 15.5 gm/dL [facility] Hematocrit 28.6(L) 35.7 - 45.8 % [facility] Mean Cell Volume 88.3 82.6 - 94.4 fL [facility] Mean Cell Hemoglobin 30.2 27.1 - 32.0 pg [facility] Mean Cell Hemoglobin Concentration 34.3 31.7 - 35.0 gm/dL [facility] Platelet 477(H) 145 - 357 x10(3)/mc L [facility] RDW Standard Deviation 43.0 37.0 - 46.0 fL [facility] RDW coefficient of variation 13.2 11.5 - 14.1 % [facility] Mean Platelet Volume 10.0 7.6 - 12.9 fL [facility] NRBC% auto 0.0 % [facility] NRBC Absolute 0.000 0.000 - 0.000 x10(3)/mc L [facility] Blood specimen (specimen) 04/08/2020 12:30 AM EST 04/08/2020 12:38 AM EST Narrative Resulting Agency Comment Spec In Lab Anjelica Jordan APRN HEMATOLOGY ORDER MAGAN [facility] [place] [address] * Phosphorus (04/08/2020 12:30 AM EST) Phosphorus 3.1 2.5 - 4.5 mg/dL [facility] Blood specimen (specimen) 04/08/2020 12:30 AM EST 04/08/2020 12:38 AM EST Narrative Resulting Agency Comment Spec In Lab Anjelica Jordan MANAGER ACUTE CHEMISTRY ORDERA BLES Performing Organization Address [facility] Co de Phone Number [facility] [place] [address] * Magnesium (04/08/2020 12:30 AM EST) Magnesium 0.69 0.69 - 1.07 mmol/L [facility] Blood specimen (specimen) 04/08/2020 12:30 AM EST 04/08/2020 12:38 AM EST Narrative Resulting Agency Comment Spec In Lab Anjelica Jordan MANAGER ACUTE CHEMISTRY ORDERA BLES Performing Organization Address [facility] de Phone Number [facility] [place] [address] * (ABNORMAL) Basic Metabolic Panel (non-fasting) (04/08/2020 12:30 AM EST) Glucose 147 65 - 199 mg/dL [facility] Comment:Diabetes: >=200 mg/d L plus symptoms Blood Urea Nitrogen 15 8 - 18 mg/dL [facility] Creatinine 0.29(L) 0.70 - 1.20 mg/dL [facility] Sodium 132(L) 135 - 145 mmol/L [facility] Potassium 3.5 3.5 - 5.0 mmol/L [facility] Comment: Please note: ??Patients with WBC >100,000 may have falsely elevated Potassium levels. ??For accurate Potassium quantification in these patients send serum separator tube (gold top) for subsequent determinations. ??Contact the Clinical Chemistry Laboratory if there are any questions. Chloride 101 98 - 107 mmol/L [facility] Carbon Dioxide 24 22 - 31 mmol/L [facility] Anion Gap 7 5 - 15 mmol/L [facility] Calcium 7.7(L) 8.5 - 10.5 mg/dL [facility] Est Glomerular Filtration Rate 115 >=60 mL/min/1. 73 m?? [facility] Comment: This patient? s [...] Lab Anjelica Jordan APRN CHEMISTRY ORDERA BLES [facility] [place] [address] * POCT Glucose (04/08/2020 12:06 AM EST) Glucose, POC 152 65 - 199 mg/dL [facility] Comment: Supplemental ranges: <140 mg/dL before meals <180 mg/dL all other times of the day Blood specimen (specimen) 04/08/2020 12:06 AM EST 04/08/2020 12:06 AM EST Davian Carolina MD POINT OF CARE TEST ORDERABLES [facility] [place] [address] * POCT Glucose (04/07/2020 7:42 PM EST) Glucose, POC 137 65 - 199 mg/dL [facility] Comment: Supplemental ranges: <140 mg/dL before meals <180 mg/dL all other times of the day Blood specimen (specimen) 04/07/2020 7:42 PM EST 04/07/2020 7:42 PM EST Davian Carolina MD POINT OF CARE TEST ORDERABLES [facility] [place] [address] * POCT Glucose (04/07/2020 3:46 PM EST) Glucose, POC 148 65 - 199 mg/dL [facility] Comment: Supplemental ranges: <140 mg/dL before meals <180 mg/dL all other times of the day Blood specimen (specimen) 04/07/2020 3:46 PM EST 04/07/2020 3:46 PM EST Davian Carolina MD POINT OF CARE TEST ORDERABLES Performing Organization Address City/[facility]/ZIP Co de Phone Number [facility] [place] [address] * POCT Glucose (04/07/2020 11:18 AM EST) Glucose, POC 154 65 - 199 mg/dL [facility] Comment: Supplemental ranges: <140 mg/dL before meals <180 mg/dL all other times of the day Blood specimen (specimen) 04/07/2020 11:18 AM EST 04/07/2020 11:18 AM EST Davian Carolina MD POINT OF CARE TEST ORDERABLES Performing Organization Address City/[facility]/ZIP Co de Phone Number [facility] [place] [address] * POCT Glucose (04/07/2020 7:32 AM EST) Glucose, POC 138 65 - 199 mg/dL [facility] Comment: Supplemental ranges: <140 mg/dL before meals <180 mg/dL all other times of the day Blood specimen (specimen) 04/07/2020 7:32 AM EST 04/07/2020 7:32 AM EST Davian Carolina MD POINT OF CARE TEST ORDERABLES [facility] [place] [address] * (ABNORMAL) Differential, Automated (04/07/2020 3:50 AM EST) Neutrophil % 66.9 % [facility] Neutrophil Absolute 9.01(H) 1.70 - 6.10 x10(3)/ L [facility] Lymph % 10.8 % [facility] Lymphocytes Abs 1.5 0.9 - 3.2 x10(3)/[facility] Monocyte % 12.5 % [facility] Monocyte Abs 1.7(H) 0.3 - 0.9 x10(3)/ L [facility] Eos % 4.8 % [facility] Eosinophils Abs 0.6(H) 0.0 - 0.4 x10(3)/[facility] Basophil % 0.9 % [facility] Baso Absolute 0.1 0.0 - 0.1 x10(3)/ L [facility] Immature Gran % 4.10 % [facility] Comment: Immature granulocytes(IG's)percentage and absolute count will include metamyelocytes, myelocytes, and promyelocytes. Blood smears from CBCs yielding IG's will be scanned manually for concordance. If this scan disagrees with the automated IG or if promyelocytes are noted, a manual differential will be performed. Immature Gran Absolute 0.55(H) 0.00 - 0.04 x10(3)/ L [facility] Blood specimen (specimen) 04/07/2020 3:50 AM EST 04/07/2020 4:01 AM EST Narrative Resulting Agency Comment Spec In Lab Anjelica Jordan APRN HEMATOLOGY ORDER MAGAN [facility] [place] [address] * (ABNORMAL) Hemogram (04/07/2020 3:50 AM EST) White Blood Cell 13.5(H) 4.0 - 9.5 x10(3)/mc L [facility] Red Blood Cell 3.14(L) 4.00 - 5.21 x10(6)/ L [facility] Hemoglobin 9.6(L) 11.7 - 15.5 gm/dL [facility] Hematocrit 28.1(L) 35.7 - 45.8 % [facility] Mean Cell Volume 89.5 82.6 - 94.4 fL [facility] Mean Cell Hemoglobin 30.6 27.1 - 32.0 pg [facility] Mean Cell Hemoglobin Concentration 34.2 31.7 - 35.0 gm/dL [facility] Platelet 453(H) 145 - 357 x10(3)/mc L [facility] RDW Standard Deviation 44.5 37.0 - 46.0 [facility] RDW coefficient of variation 13.5 11.5 - 14.1 % [facility] Mean Platelet Volume 9.7 7.6 - 12.9 [facility] NRBC% auto 0.0 % [facility] NRBC Absolute 0.000 0.000 - 0.000 x10(3)/ L [facility] Blood specimen (specimen) 04/07/2020 3:50 AM EST 04/07/2020 4:01 AM EST Narrative Resulting Agency Comment Spec In Lab Anjelica Jordan APRN HEMATOLOGY ORDER MAGAN [facility] [place] [address] * Phosphorus (04/07/2020 3:50 AM EST) Phosphorus 3.3 2.5 - 4.5 mg/dL [facility] Blood specimen (specimen) 04/07/2020 3:50 AM EST 04/07/2020 4:01 AM EST Narrative Resulting Agency Comment Spec In Lab Anjelica Lissa Nikki MANAGER ACUTE CHEMISTRY ORDERA BLES Performing Organization Address [facility] Co de Phone Number [facility] [place] [address] * Magnesium (04/07/2020 3:50 AM EST) [facility] Magnesium 0.82 0.69 - 1.07 mmol/L [facility] Blood specimen (specimen) 04/07/2020 3:50 AM EST 04/07/2020 4:01 AM EST Narrative Resulting Agency Comment Spec In Lab Anjelica Jordan MANAGER ACUTE CHEMISTRY ORDERA BLES Performing Organization Address [facility] de Phone Number [facility] [place] [address] * (ABNORMAL) Basic Metabolic Panel (non-fasting) (04/07/2020 3:50 AM EST) Pathologist [facility] Glucose 166 65 - 199 mg/dL [facility] Comment:Diabetes: >=200 mg/d L plus symptoms Blood Urea Nitrogen 16 8 - 18 mg/dL [facility] Creatinine 0.34(L) 0.70 - 1.20 mg/dL [facility] Sodium 134(L) 135 - 145 mmol/L [facility] Potassium 3.6 3.5 - 5.0 mmol/L [facility] Comment: Please note: ??Patients with WBC >100,000 may have falsely elevated Potassium levels. ??For accurate Potassium quantification in these patients send serum separator tube (gold top) for subsequent determinations. ??Contact the Clinical Chemistry Laboratory if there are any questions. Chloride 101 98 - 107 mmol/L [facility] Carbon Dioxide 24 22 - 31 mmol/L [facility] Anion Gap 9 5 - 15 mmol/L [facility] Calcium 7.7(L) 8.5 - 10.5 mg/dL [facility] Est Glomerular Filtration Rate 109 >=60 mL/min/1. 73 m?? [facility] Comment: This patient? s [...] Lab Anjelica Jordan APRN CHEMISTRY ORDERA BLES [facility] [place] [address] * POCT Glucose (04/07/2020 3:41 AM EST) Glucose, POC 160 65 - 199 mg/dL [facility] Comment: Supplemental ranges: <140 mg/dL before meals <180 mg/dL all other times of the day Blood specimen (specimen) 04/07/2020 3:41 AM EST 04/07/2020 3:41 AM EST Davian Carolina MD POINT OF CARE TEST ORDERABLES [facility] [place] [address] * POCT Glucose (04/06/2020 11:51 PM EST) Glucose, POC 159 65 - 199 mg/dL [facility] Comment: Supplemental ranges: <140 mg/dL before meals <180 mg/dL all other times of the day Blood specimen (specimen) 04/06/2020 11:51 PM EST 04/06/2020 11:51 PM EST Davian Carolina MD POINT OF CARE TEST ORDERABLES [facility] [place] [address] * POCT Glucose (04/06/2020 8:06 PM EST) Glucose, POC 145 65 - 199 mg/dL [facility] Comment: Supplemental ranges: <140 mg/dL before meals <180 mg/dL all other times of the day Blood specimen (specimen) 04/06/2020 8:06 PM EST 04/06/2020 8:06 PM EST Davian Carolina MD POINT OF CARE TEST ORDERABLES [facility] [place] [address] * POCT Glucose (04/06/2020 4:02 PM EST) Glucose, POC 177 65 - 199 mg/dL [facility] Comment: Supplemental ranges: <140 mg/dL before meals <180 mg/dL all other times of the day Blood specimen (specimen) 04/06/2020 4:02 PM EST 04/06/2020 4:02 PM EST Davian Carolina MD POINT OF CARE TEST ORDERABLES [facility] [place] [address] * POCT Glucose (04/06/2020 12:12 PM EST) Glucose, POC 156 65 - 199 mg/dL [facility] Comment: Supplemental ranges: <140 mg/dL before meals <180 mg/dL all other times of the day Blood specimen (specimen) 04/06/2020 12:12 PM EST 04/06/2020 12:12 PM EST Davian Carolina MD POINT OF CARE TEST ORDERABLES Performing Organization Address City/[facility]/ZIP Co de Phone Number [facility] [place] [address] * POCT Glucose (04/06/2020 7:50 AM EST) Glucose, POC 170 65 - 199 mg/dL [facility] Comment: Supplemental ranges: <140 mg/dL before meals <180 mg/dL all other times of the day Blood specimen (specimen) 04/06/2020 7:50 AM EST 04/06/2020 7:50 AM EST Davian Carolina MD POINT OF CARE TEST ORDERABLES Performing Organization Address [facility] Co de Phone Number [facility] [place] [address] * POCT Glucose (04/06/2020 4:43 AM EST) Glucose, POC 198 65 - 199 mg/dL [facility] Comment: Supplemental ranges: <140 mg/dL before meals <180 mg/dL all other times of the day Blood specimen (specimen) 04/06/2020 4:43 AM EST 04/06/2020 4:43 AM EST Davian Carolina MD POINT OF CARE TEST ORDERABLES Performing Organization Address City/[facility] Co de Phone Number [facility] [place] [address] * (ABNORMAL) Differential, Automated (04/06/2020 1:30 AM EST) Neutrophil % 77.8 % [facility] Neutrophil Absolute 12.95(H) 1.70 - 6.10 x10(3)/ L [facility] Lymph % 6.2 % [facility] Lymphocytes Abs 1.0 0.9 - 3.2 x10(3)/[facility] Monocyte % 9.8 % [facility] Monocyte Abs 1.6(H) 0.3 - 0.9 x10(3)/[facility] Eos % 0.8 % [facility] Eosinophils Abs 0.1 0.0 - 0.4 x10(3)/[facility] Basophil % 0.5 % [facility] Baso Absolute 0.1 0.0 - 0.1 x10(3)/[facility] Immature Gran % 4.90 % [facility] Comment: Immature granulocytes(IG's)percentage and absolute count will include metamyelocytes, myelocytes, and promyelocytes. Blood smears from CBCs yielding IG's will be scanned manually for concordance. If this scan disagrees with the automated IG or if promyelocytes are noted, a manual differential will be performed. Immature Gran Absolute 0.81(H) 0.00 - 0.04 x10(3)/[facility] Blood specimen (specimen) 04/06/2020 1:30 AM EST 04/06/2020 1:40 AM EST Narrative Resulting Agency Comment Spec In Lab Anjelica Jordan APRN HEMATOLOGY ORDER MAGAN [facility] [place] [address] * (ABNORMAL) Hemogram (04/06/2020 1:30 AM EST) White Blood Cell 16.7(H) 4.0 - 9.5 x10(3)/ L [facility] Red Blood Cell 3.04(L) 4.00 - 5.21 x10(6)/[facility] Hemoglobin 9.2(L) 11.7 - 15.5 gm/dL [facility] Hematocrit 27.3(L) 35.7 - 45.8 % [facility] Mean Cell Volume 89.8 82.6 - 94.4 fL [facility] Mean Cell Hemoglobin 30.3 27.1 - 32.0 pg [facility] Mean Cell Hemoglobin Concentration 33.7 31.7 - 35.0 gm/dL [facility] Platelet 445(H) 145 - 357 x10(3)/mc L [facility] RDW Standard Deviation 43.9 37.0 - 46.0 fL [facility] RDW coefficient of variation 13.2 11.5 - 14.1 % [facility] Mean Platelet Volume 9.9 7.6 - 12.9 fL [facility] NRBC% auto 0.0 % [facility] NRBC Absolute 0.000 0.000 - 0.000 x10(3)/mc L [facility] Blood specimen (specimen) 04/06/2020 1:30 AM EST 04/06/2020 1:40 AM EST Narrative Resulting Agency Comment Spec In Lab Anjelica Jordan APRN HEMATOLOGY ORDER MAGAN Performing Organization Address [facility] de Phone Number [facility] [place] [address] * Phosphorus (04/06/2020 1:30 AM EST) Phosphorus 3.3 2.5 - 4.5 mg/dL [facility] Blood specimen (specimen) 04/06/2020 1:30 AM EST 04/06/2020 1:40 AM EST Narrative Resulting Agency Comment Spec In Lab Anjelica Jordan MANAGER ACUTE CHEMISTRY ORDERA BLES Performing Organization Address City/[facility] Co de Phone Number [facility] [place] [address] * Magnesium (04/06/2020 1:30 AM EST) Magnesium 0.88 0.69 - 1.07 mmol/L [facility] Blood specimen (specimen) 04/06/2020 1:30 AM EST 04/06/2020 1:40 AM EST Narrative Resulting Agency Comment Spec In Lab Anjelica Lissa Nikki GRANDA CHEMISTRY ORDERA BLES [facility] [place] [address] * (ABNORMAL) Basic Metabolic Panel (non-fasting) (04/06/2020 1:30 AM EST) Glucose 180 65 - 199 mg/dL [facility] Comment:Diabetes: >=200 mg/d L plus symptoms Blood Urea Nitrogen 16 8 - 18 mg/dL [facility] Creatinine 0.42(L) 0.70 - 1.20 mg/dL [facility] Sodium 137 135 - 145 mmol/L [facility] Potassium 3.6 3.5 - 5.0 mmol/L [facility] Comment: Please note: ??Patients with WBC >100,000 may have falsely elevated Potassium levels. ??For accurate Potassium quantification in these patients send serum separator tube (gold top) for subsequent determinations. ??Contact the Clinical Chemistry Laboratory if there are any questions. Chloride 102 98 - 107 mmol/L [facility] Carbon Dioxide 26 22 - 31 mmol/L [facility] Anion Gap 9 5 - 15 mmol/L [facility] Calcium 7.7(L) 8.5 - 10.5 mg/dL [facility] Est Glomerular Filtration Rate 102 >=60 mL/min/1. 73 m?? [facility] Comment: This patient? s [...] Agency Comment Spec In Lab Anjelica Jordan MANAGER ACUTE CHEMISTRY ORDERA BLES Performing Organization Address City/[facility]/ZIP Co de Phone Number [facility] [place] [address] * POCT Glucose (04/05/2020 11:23 PM EST) Glucose, POC 186 65 - 199 mg/dL [facility] Comment: Supplemental ranges: <140 mg/dL before meals <180 mg/dL all other times of the day Blood specimen (specimen) 04/05/2020 11:23 PM EST 04/05/2020 11:23 PM EST Davian Carolina MD POINT OF CARE TEST ORDERABLES Performing Organization Address [facility]/ZIP Co de Phone Number [facility] [place] [address] * POCT Glucose (04/05/2020 8:03 PM EST) Glucose, POC 150 65 - 199 mg/dL [facility] Comment: Supplemental ranges: <140 mg/dL before meals <180 mg/dL all other times of the day Blood specimen (specimen) 04/05/2020 8:03 PM EST 04/05/2020 8:03 PM EST Davian Carolina MD POINT OF CARE TEST ORDERABLES Performing Organization Address City/[facility]/ZIP Co de Phone Number [facility] [place] [address] * POCT Glucose (04/05/2020 4:11 PM EST) Glucose, POC 171 65 - 199 mg/dL [facility] Comment: Supplemental ranges: <140 mg/dL before meals <180 mg/dL all other times of the day Blood specimen (specimen) 04/05/2020 4:11 PM EST 04/05/2020 4:11 PM EST Davian Carolina MD POINT OF CARE TEST ORDERABLES Performing Organization Address City/State/[facility] Co de Phone Number [facility] [place] [address] * XR Chest PA & Lateral (Generic) [...] during NG placement with persistent leukocyotosis and [id number] TECHNIQUE: PA and lateral views of the [...] Glucose, POC 202(H) 65 - 199 mg/dL [facility] Comment: Supplemental ranges: <140 mg/dL before meals <180 mg/dL all other times of the day Blood specimen (specimen) 04/05/2020 11:36 AM EST 04/05/2020 11:36 AM EST Davian Carolina MD POINT OF CARE TEST ORDERABLES Performing Organization Address [facility]/ZIP Co de Phone Number [facility] [place] [address] * POCT Glucose (04/05/2020 8:06 AM EST) Glucose, POC 168 65 - 199 mg/dL [facility] Comment: Supplemental ranges: <140 mg/dL before meals <180 mg/dL all other times of the day Blood specimen (specimen) 04/05/2020 8:06 AM EST 04/05/2020 8:06 AM EST Davian Carolina MD POINT OF CARE TEST ORDERABLES Performing Organization Address [facility]/ZIP Co de Phone Number [facility] [place] [address] * POCT Glucose (04/05/2020 4:03 AM EST) Glucose, POC 167 65 - 199 mg/dL [facility] Comment: Supplemental ranges: <140 mg/dL before meals <180 mg/dL all other times of the day Blood specimen (specimen) 04/05/2020 4:03 AM EST 04/05/2020 4:03 AM EST Davian Carolina MD POINT OF CARE TEST ORDERABLES Performing Organization Address City/[facility]/ZIP Co de Phone Number [facility] [place] [address] * Scan, Peripheral Blood (04/05/2020 1:10 AM EST) Plat estimate Increased [facility] RBC Morphology Normal [facility] Dohle Bodies Present [facility] Blood specimen (specimen) 04/05/2020 1:10 AM EST 04/05/2020 1:25 AM EST Narrative Resulting Agency Comment Spec In Lab Anjelica Jordan APRN HEMATOLOGY ORDER MAGAN Performing Organization Address [facility] Co de Phone Number [facility] [place] [address] * (ABNORMAL) Differential, Automated (04/05/2020 1:10 AM EST) [facility] Neutrophil % 81.7 % [facility] Neutrophil Absolute 17.48(H) 1.70 - 6.10 x10(3)/mc L [facility] Lymph % 6.8 % [facility] Lymphocytes Abs 1.4 0.9 - 3.2 x10(3)/mc L [facility] Monocyte % 7.2 % [facility] Monocyte Abs 1.5(H) 0.3 - 0.9 x10(3)/mc L [facility] Eos % 0.7 % [facility] Eosinophils Abs 0.2 0.0 - 0.4 x10(3)/mc L [facility] Basophil % 0.5 % [facility] Baso Absolute 0.1 0.0 - 0.1 x10(3)/mc L [facility] Immature Gran % 3.10 % [facility] Comment: Immature granulocytes(IG's)percentage and absolute count will include metamyelocytes, myelocytes, and promyelocytes. Blood smears from CBCs yielding IG's will be scanned manually for concordance. If this scan disagrees with the automated IG or if promyelocytes are noted, a manual differential will be performed. Immature Gran Absolute 0.67(H) 0.00 - 0.04 x10(3)/mc L [facility] Blood specimen (specimen) 04/05/2020 1:10 AM EST 04/05/2020 1:25 AM EST Narrative Resulting Agency Comment Spec In Lab Anjelica Jordan APRN HEMATOLOGY ORDER MAGAN [facility] [place] [address] * (ABNORMAL) Hemogram (04/05/2020 1:10 AM EST) White Blood Cell 21.4(H) 4.0 - 9.5 x10(3)/mc L [facility] Red Blood Cell 3.33(L) 4.00 - 5.21 x10(6)/[facility] Hemoglobin 9.9(L) 11.7 - 15.5 gm/dL [facility] Hematocrit 30.0(L) 35.7 - 45.8 % [facility] Mean Cell Volume 90.1 82.6 - 94.4 fL [facility] Mean Cell Hemoglobin 29.7 27.1 - 32.0 pg [facility] Mean Cell Hemoglobin Concentration 33.0 31.7 - 35.0 gm/dL [facility] Platelet 444(H) 145 - 357 x10(3)/mc L [facility] RDW Standard Deviation 42.1 37.0 - 46.0 fL [facility] RDW coefficient of variation 12.7 11.5 - 14.1 % [facility] Mean Platelet Volume 10.0 7.6 - 12.9 fL [facility] NRBC% auto 0.0 % [facility] NRBC Absolute 0.000 0.000 - 0.000 x10(3)/mc L [facility] Blood specimen (specimen) 04/05/2020 1:10 AM EST 04/05/2020 1:25 AM EST Narrative Resulting Agency Comment Spec In Lab Anjelica Jordan APRN HEMATOLOGY ORDER MAGAN Performing Organization Address [facility] Co de Phone Number [facility] [place] [address] * Phosphorus (04/05/2020 1:10 AM EST) Phosphorus 2.9 2.5 - 4.5 mg/dL [facility] Blood specimen (specimen) 04/05/2020 1:10 AM EST 04/05/2020 1:25 AM EST Narrative Resulting Agency Comment Spec In Lab Anjelica Jordan APRN CHEMISTRY ORDERA BLES Performing Organization Address [facility] de Phone Number [facility] [place] [address] * Magnesium (04/05/2020 1:10 AM EST) Magnesium 0.82 0.69 - 1.07 mmol/L [facility] Blood specimen (specimen) 04/05/2020 1:10 AM EST 04/05/2020 1:25 AM EST Narrative Resulting Agency Comment Spec In Lab Anjelica Jordan APRN CHEMISTRY ORDERA BLES Performing Organization Address [facility] de Phone Number [facility] [place] [address] * (ABNORMAL) Basic Metabolic Panel (non-fasting) (04/05/2020 1:10 AM EST) Glucose 175 65 - 199 mg/dL [facility] Comment:Diabetes: >=200 mg/d L plus symptoms Blood Urea Nitrogen 11 8 - 18 mg/dL [facility] Creatinine 0.36(L) 0.70 - 1.20 mg/dL [facility] Sodium 134(L) 135 - 145 mmol/L [facility] Potassium 3.4(L) 3.5 - 5.0 mmol/L [facility] Comment: Please note: ??Patients with WBC >100,000 may have falsely elevated Potassium levels. ??For accurate Potassium quantification in these patients send serum separator tube (gold top) for subsequent determinations. ??Contact the Clinical Chemistry Laboratory if there are any questions. Chloride 101 98 - 107 mmol/L [facility] Carbon Dioxide 26 22 - 31 mmol/L [facility] Anion Gap 7 5 - 15 mmol/L [facility] Calcium 8.0(L) 8.5 - 10.5 mg/dL [facility] Est Glomerular Filtration Rate 107 >=60 mL/min/1. 73 m?? [facility] Comment: This patient? s [...] Lab Anjelica Jordan APRN CHEMISTRY ORDERA GEE [facility] [place] [address] * POCT Glucose (04/05/2020 1:09 AM EST) Glucose, POC 172 65 - 199 mg/dL [facility] Comment: Supplemental ranges: <140 mg/dL before meals <180 mg/dL all other times of the day Blood specimen (specimen) 04/05/2020 1:09 AM EST 04/05/2020 1:09 AM EST Davian Carolina MD POINT OF CARE TEST ORDERABLES Performing Organization Address [facility] Co de Phone Number [facility] [place] [address] * POCT Glucose (04/04/2020 10:11 PM EST) Glucose, POC 197 65 - 199 mg/dL [facility] Comment: Supplemental ranges: <140 mg/dL before meals <180 mg/dL all other times of the day Blood specimen (specimen) 04/04/2020 10:11 PM EST 04/04/2020 10:11 PM EST Davian Carolina MD POINT OF CARE TEST ORDERABLES Performing Organization Address [facility] de Phone Number [facility] [place] [address] * POCT Glucose (04/04/2020 8:22 PM EST) Glucose, POC 191 65 - 199 mg/dL [facility] Comment: Supplemental ranges: <140 mg/dL before meals <180 mg/dL all other times of the day Blood specimen (specimen) 04/04/2020 8:22 PM EST 04/04/2020 8:22 PM EST Davian Carolina MD POINT OF CARE TEST ORDERABLES Performing Organization Address [facility] Co de Phone Number [facility] [place] [address] * POCT Glucose (04/04/2020 4:36 PM EST) Glucose, POC 190 65 - 199 mg/dL [facility] Comment: Supplemental ranges: <140 mg/dL before meals <180 mg/dL all other times of the day Blood specimen (specimen) 04/04/2020 4:36 PM EST 04/04/2020 4:36 PM EST Davian Carolina MD POINT OF CARE TEST ORDERABLES Performing Organization Address [facility] Co de Phone Number [facility] [place] [address] * POCT Glucose (04/04/2020 11:52 AM EST) Glucose, POC 178 65 - 199 mg/dL [facility] Comment: Supplemental ranges: <140 mg/dL before meals <180 mg/dL all other times of the day Blood specimen (specimen) 04/04/2020 11:52 AM EST 04/04/2020 11:52 AM EST Davian Carolina MD POINT OF CARE TEST ORDERABLES Performing Organization Address [facility] de Phone Number [facility] [place] [address] * (ABNORMAL) POCT Glucose (04/04/2020 7:38 AM EST) Glucose, POC 220(H) 65 - 199 mg/dL [facility] Comment: Supplemental ranges: <140 mg/dL before meals <180 mg/dL all other times of the day Blood specimen (specimen) 04/04/2020 7:38 AM EST 04/04/2020 7:38 AM EST Davian Carolina MD POINT OF CARE TEST ORDERABLES Performing Organization Address City/[facility] Co de Phone Number [facility] [place] [address] * (ABNORMAL) POCT Glucose (04/04/2020 5:20 AM EST) Glucose, POC 203(H) 65 - 199 mg/dL [facility] Comment: Supplemental ranges: <140 mg/dL before meals <180 mg/dL all other times of the day Blood specimen (specimen) 04/04/2020 5:20 AM EST 04/04/2020 5:20 AM EST Davian Carolina MD POINT OF CARE TEST ORDERABLES [facility] [place] [address] * POCT Glucose (04/04/2020 5:19 AM EST) Pathologist [facility] Glucose, POC 198 65 - 199 mg/dL [facility] Comment: Supplemental ranges: <140 mg/dL before meals <180 mg/dL all other times of the day Blood specimen (specimen) 04/04/2020 5:19 AM EST 04/04/2020 5:19 AM EST Davian Carolina MD POINT OF CARE TEST ORDERABLES Performing Organization Address [facility] Co de Phone Number [facility] [place] [address] * (ABNORMAL) Differential, Automated (04/04/2020 3:26 AM EST) [facility] Neutrophil % 86.3 % [facility] Neutrophil Absolute 17.68(H) 1.70 - 6.10 x10(3)/mc L [facility] Lymph % 4.5 % [facility] Lymphocytes Abs 0.9 0.9 - 3.2 x10(3)/mc L [facility] Monocyte % 6.0 % [facility] Monocyte Abs 1.2(H) 0.3 - 0.9 x10(3)/mc L [facility] Eos % 1.5 % [facility] Eosinophils Abs 0.3 0.0 - 0.4 x10(3)/mc L [facility] Basophil % 0.3 % [facility] Baso Absolute 0.1 0.0 - 0.1 x10(3)/mc L [facility] Immature Gran % 1.40 % [facility] Comment: Immature granulocytes(IG's)percentage and absolute count will include metamyelocytes, myelocytes, and promyelocytes. Blood smears from CBCs yielding IG's will be scanned manually for concordance. If this scan disagrees with the automated IG or if promyelocytes are noted, a manual differential will be performed. Immature Gran Absolute 0.29(H) 0.00 - 0.04 x10(3)/ L [facility] Blood specimen (specimen) 04/04/2020 3:26 AM EST 04/04/2020 3:32 AM EST Narrative Resulting Agency Comment Spec In Lab Anjelica Jordan APRN HEMATOLOGY ORDER MAGAN [facility] [place] [address] * (ABNORMAL) Hemogram (04/04/2020 3:26 AM EST) White Blood Cell 20.5(H) 4.0 - 9.5 x10(3)/[facility] Red Blood Cell 3.01(L) 4.00 - 5.21 x10(6)/ L [facility] Hemoglobin 9.1(L) 11.7 - 15.5 gm/dL [facility] Hematocrit 27.1(L) 35.7 - 45.8 % [facility] Mean Cell Volume 90.0 82.6 - 94.4 fL [facility] Mean Cell Hemoglobin 30.2 27.1 - 32.0 pg [facility] Mean Cell Hemoglobin Concentration 33.6 31.7 - 35.0 gm/dL [facility] Platelet 367(H) 145 - 357 x10(3)/mc L [facility] RDW Standard Deviation 42.0 37.0 - 46.0 fL [facility] RDW coefficient of variation 12.6 11.5 - 14.1 % [facility] Mean Platelet Volume 9.6 7.6 - 12.9 fL [facility] NRBC% auto 0.0 % [facility] NRBC Absolute 0.000 0.000 - 0.000 x10(3)/mc L [facility] Blood specimen (specimen) 04/04/2020 3:26 AM EST 04/04/2020 3:32 AM EST Narrative Resulting Agency Comment Spec In Lab Anjelica Jordan APRN HEMATOLOGY ORDER MAGAN Performing Organization Address [facility] de Phone Number [facility] [place] [address] * (ABNORMAL) Phosphorus (04/04/2020 3:26 AM EST) Phosphorus 2.4(L) 2.5 - 4.5 mg/dL [facility] Blood specimen (specimen) 04/04/2020 3:26 AM EST 04/04/2020 3:32 AM EST Narrative Resulting Agency Comment Spec In Lab Anjelica Jordan APRN CHEMISTRY ORDERA BLES Performing Organization Address [facility] Phone Number [facility] [place] [address] * Magnesium (04/04/2020 3:26 AM EST) Magnesium 0.84 0.69 - 1.07 mmol/L [facility] Blood specimen (specimen) 04/04/2020 3:26 AM EST 04/04/2020 3:32 AM EST Narrative Resulting Agency Comment Spec In Lab Anjelica Jordan MANAGER ACUTE CHEMISTRY ORDERA BLES Performing Organization Address [facility] Phone Number [facility] [place] [address] * (ABNORMAL) Basic Metabolic Panel (non-fasting) (04/04/2020 3:26 AM EST) Glucose 181 65 - 199 mg/dL [facility] Comment:Diabetes: >=200 mg/d L plus symptoms Blood Urea Nitrogen 13 8 - 18 mg/dL [facility] Creatinine 0.34(L) 0.70 - 1.20 mg/dL [facility] Sodium 134(L) 135 - 145 mmol/L [facility] Potassium 3.3(L) 3.5 - 5.0 mmol/L [facility] Comment: Please note: ??Patients with WBC >100,000 may have falsely elevated Potassium levels. ??For accurate Potassium quantification in these patients send serum separator tube (gold top) for subsequent determinations. ??Contact the Clinical Chemistry Laboratory if there are any questions. Chloride 101 98 - 107 mmol/L [facility] Carbon Dioxide 28 22 - 31 mmol/L [facility] Anion Gap 5 5 - 15 mmol/L [facility] Calcium 7.8(L) 8.5 - 10.5 mg/dL [facility] Est Glomerular Filtration Rate 109 >=60 mL/min/1. 73 m?? [facility] Comment: This patient? s [...] Lab Anjelica Jordan APRN CHEMISTRY ORDERA BLES [facility] [place] [address] * POCT Glucose (04/04/2020 3:18 AM EST) Glucose, POC 172 65 - 199 mg/dL [facility] Comment: Supplemental ranges: <140 mg/dL before meals <180 mg/dL all other times of the day Blood specimen (specimen) 04/04/2020 3:18 AM EST 04/04/2020 3:18 AM EST Davian Carolina MD POINT OF CARE TEST ORDERABLES Performing Organization Address [facility] Co de Phone Number [facility] [place] [address] * POCT Glucose (04/04/2020 12:50 AM EST) Glucose, POC 145 65 - 199 mg/dL [facility] Comment: Supplemental ranges: <140 mg/dL before meals <180 mg/dL all other times of the day Blood specimen (specimen) 04/04/2020 12:50 AM EST 04/04/2020 12:50 AM EST Davian Carolina MD POINT OF CARE TEST ORDERABLES Performing Organization Address [facility] Co de Phone Number [facility] [place] [address] * POCT Glucose (04/03/2020 9:25 PM EST) Glucose, POC 173 65 - 199 mg/dL [facility] Comment: Supplemental ranges: <140 mg/dL before meals <180 mg/dL all other times of the day Blood specimen (specimen) 04/03/2020 9:25 PM EST 04/03/2020 9:25 PM EST Davian Carolina MD POINT OF CARE TEST ORDERABLES Performing Organization Address [facility] Co de Phone Number [facility] [place] [address] * POCT Glucose (04/03/2020 4:19 PM EST) Glucose, POC 197 65 - 199 mg/dL [facility] Comment: Supplemental ranges: <140 mg/dL before meals <180 mg/dL all other times of the day Blood specimen (specimen) 04/03/2020 4:19 PM EST 04/03/2020 4:19 PM EST Davian Carolina MD POINT OF CARE TEST ORDERABLES Performing Organization Address [facility]/ZIP Co de Phone Number [facility] [place] [address] * (ABNORMAL) Urinalysis Microscopic Exam (04/03/2020 2:22 PM EST) RBC, Urine 12(H) 0 - 4 /HPF [facility] WBC, Urine 6(H) 0 - 5 /HPF [facility] Squamous Epithelial Cells Raw Data, Urine 5(H) <=4 /HPF [facility] Transitional Epithelial Cells, Urine <1 <=1 /HPF [facility] Hyaline Casts, Urine <1 0 - 2 /LPF [facility] Urine specimen (specimen) 04/03/2020 2:22 PM EST 04/03/2020 2:54 PM EST Narrative Resulting Agency Comment Spec In Lab Anjelica Jordan APRN URINE ORDERABLES Performing Organization Address [facility] Co de Phone Number [facility] [place] [address] * (ABNORMAL) Urinalysis with reflex Culture (04/03/2020 2:22 PM EST) Glucose, Urine Dipstick Negative Negative mg/dL [facility] Protein, Urine Dipstick 30(A) Negative mg/dL [facility] Bilirubin, Urine Dipstick Negative Negative mg/dL [facility] Comment: Clinical correlation required for positive Urine Bilirubin results as false positive may occur with some drugs and drug related products. If a false positive is suspected a serum total bilirubin should be considered if clinically indicated. Urobilinogen, Urine Dipstick Normal Normal mg/dL [facility] pH, Urn (dipstick) 6.0 5.0 - 8.0 [facility] Blood, Urine Dipstick Negative Negative mg/dL [facility] Ketone, Urine Dipstick 40(A) Negative mg/dL [facility] Nitrite, Urine Dipstick Negative Negative [facility] Leukocytes, Urine Dipstick Negative Negative [facility] Appearance, Urine Dipstick Clear Clear [facility] Specific [place]oup Urine Automated 1.025 1.006 - 1.030 [facility] Color, Urine Dipstick Yellow Yellow [facility] Reflex to Culture No [facility] Urine specimen (specimen) 04/03/2020 2:22 PM EST 04/03/2020 2:54 PM EST Narrative Resulting Agency Comment Spec In Lab Anjelica Jordan APRN URINE ORDERABLES Performing Organization Address [facility]/ZIP Co de Phone Number [facility] [place] [address] * POCT Glucose (04/03/2020 12:47 PM EST) Glucose, POC 151 65 - 199 mg/dL [facility] Comment: Supplemental ranges: <140 mg/dL before meals <180 mg/dL all other times of the day Blood specimen (specimen) 04/03/2020 12:47 PM EST 04/03/2020 12:47 PM EST Davian Carolina MD POINT OF CARE TEST ORDERABLES Performing Organization Address [facility] Co de Phone Number [facility] [place] [address] * XR Abdomen 1 view (Generic) (04/03/2020 [...] * POCT Glucose (04/03/2020 5:18 AM EST) [facility] Glucose, POC 192 65 - 199 mg/dL [facility] Comment: Supplemental ranges: <140 mg/dL before meals <180 mg/dL all other times of the day Blood specimen (specimen) 04/03/2020 5:18 AM EST 04/03/2020 5:18 AM EST Davian Carolina MD POINT OF CARE TEST ORDERABLES [facility] [place] [address] * (ABNORMAL) Differential, Automated (04/03/2020 2:50 AM EST) [facility] Neutrophil % 91.6 % [facility] Neutrophil Absolute 16.61(H) 1.70 - 6.10 x10(3)/[facility] LABORATORY Lymph % 2.9 % [facility] Lymphocytes Abs 0.5(L) 0.9 - 3.2 x10(3)/[facility] LABORATORY Monocyte % 4.7 % [facility] Monocyte Abs 0.8 0.3 - 0.9 x10(3)/[facility] LABORATORY Eos % 0.1 % [facility] Eosinophils Abs 0.0 0.0 - 0.4 x10(3)/[facility] LAB[facility]ATORY Basophil % 0.2 % [facility] Baso Absolute 0.0 0.0 - 0.1 x10(3)/[facility]AT[facility] Immature Gran % 0.50 % [facility] Comment: Immature granulocytes(IG's)percentage and absolute count will include metamyelocytes, myelocytes, and promyelocytes. Blood smears from CBCs yielding IG's will be scanned manually for concordance. If this scan disagrees with the automated IG or if promyelocytes are noted, a manual differential will be performed. Immature Gran Absolute 0.09(H) 0.00 - 0.04 x10(3)/[facility]AT[facility] Blood specimen (specimen) 04/03/2020 2:50 AM EST 04/03/2020 3:05 AM EST Narrative Resulting Agency Comment Spec In Lab Anjelica Jordan APRN HEMATOLOGY ORDER MAGAN [facility] [place] [address] * (ABNORMAL) Hemogram (04/03/2020 2:50 AM EST) White Blood Cell 18.1(H) 4.0 - 9.5 x10(3)/[facility] LAB[facility]AT[facility] Red Blood Cell 3.40(L) 4.00 - 5.21 x10(6)/mc L [facility] Hemoglobin 10.2(L) 11.7 - 15.5 gm/dL [facility] Hematocrit 30.9(L) 35.7 - 45.8 % [facility] Mean Cell Volume 90.9 82.6 - 94.4 fL [facility] Mean Cell Hemoglobin 30.0 27.1 - 32.0 pg [facility] Mean Cell Hemoglobin Concentration 33.0 31.7 - 35.0 gm/dL [facility] Platelet 380(H) 145 - 357 x10(3)/mc L [facility] RDW Standard Deviation 40.6 37.0 - 46.0 fL [facility] RDW coefficient of variation 12.3 11.5 - 14.1 % [facility] Mean Platelet Volume 10.0 7.6 - 12.9 fL [facility] NRBC% auto 0.0 % [facility] NRBC Absolute 0.000 0.000 - 0.000 x10(3)/mc L [facility] Blood specimen (specimen) 04/03/2020 2:50 AM EST 04/03/2020 3:05 AM EST Narrative Resulting Agency Comment Spec In Lab Anjelica Jordan MANAGER ACUTE HEMATOLOGY ORDER MAGAN Performing Organization Address City/[facility]/[place] [address] * (ABNORMAL) Phosphorus (04/03/2020 2:50 AM EST) Phosphorus 2.2(L) 2.5 - 4.5 mg/dL [facility] Blood specimen (specimen) 04/03/2020 2:50 AM EST 04/03/2020 3:05 AM EST Narrative Resulting Agency Comment Spec In Lab Anjelica Jordan MANAGER ACUTE CHEMISTRY ORDERA BLES [facility] [place] [address] * Magnesium (04/03/2020 2:50 AM EST) Magnesium 0.76 0.69 - 1.07 mmol/L [facility] Blood specimen (specimen) 04/03/2020 2:50 AM EST 04/03/2020 3:05 AM EST Narrative Resulting Agency Comment Spec In Lab Anjelica Jordan MANAGER ACUTE CHEMISTRY ORDERA BLES [facility] [place] [address] * (ABNORMAL) Basic Metabolic Panel (non-fasting) (04/03/2020 2:50 AM EST) Glucose 162 65 - 199 mg/dL [facility] Comment:Diabetes: >=200 mg/d L plus symptoms Blood Urea Nitrogen 11 8 - 18 mg/dL [facility] Creatinine 0.37(L) 0.70 - 1.20 mg/dL [facility] Sodium 129(L) 135 - 145 mmol/L [facility] Potassium 3.8 3.5 - 5.0 mmol/L [facility] Comment: Please note: ??Patients with WBC >100,000 may have falsely elevated Potassium levels. ??For accurate Potassium quantification in these patients send serum separator tube (gold top) for subsequent determinations. ??Contact the Clinical Chemistry Laboratory if there are any questions. Chloride 96(L) 98 - 107 mmol/L [facility] Carbon Dioxide 23 22 - 31 mmol/L [facility] Anion Gap 10 5 - 15 mmol/L [facility] Calcium 7.6(L) 8.5 - 10.5 mg/dL [facility] Est Glomerular Filtration Rate 106 >=60 mL/min/1. 73 m?? [facility] Comment: This patient? s [...] APRN CHEMISTRY ORDERA BLES Performing Organization Address [facility] Co de Phone Number [facility] [place] [address] * POCT Glucose (04/02/2020 10:57 PM EST) Glucose, POC 164 65 - 199 mg/dL [facility] Comment: Supplemental ranges: <140 mg/dL before meals <180 mg/dL all other times of the day Blood specimen (specimen) 04/02/2020 10:57 PM EST 04/02/2020 10:57 PM EST Davian Carolina MD POINT OF CARE TEST ORDERABLES Performing Organization Address [facility] Co de Phone Number [facility] [place] [address] * XR Chest One View (04/02/2020 7:21 [...] EST) Glucose 92 65 - 199 mg/dL [facility] Comment:Diabetes: >=200 mg/d L plus symptoms Blood Urea Nitrogen 8 8 - 18 mg/dL [facility] Creatinine 0.40(L) 0.70 - 1.20 mg/dL [facility] Sodium 132(L) 135 - 145 mmol/L [facility] Potassium 3.9 3.5 - 5.0 mmol/L [facility] Comment: Please note: ??Patients with WBC >100,000 may have falsely elevated Potassium levels. ??For accurate Potassium quantification in these patients send serum separator tube (gold top) for subsequent determinations. ??Contact the Clinical Chemistry Laboratory if there are any questions. Chloride 96(L) 98 - 107 mmol/L [facility] Carbon Dioxide 22 22 - 31 mmol/L [facility] Anion Gap 14 5 - 15 mmol/L [facility] Calcium 7.7(L) 8.5 - 10.5 mg/dL [facility] Est Glomerular Filtration Rate 103 >=60 mL/min/1. 73 m?? [facility] Comment: This patient? s [...] APRN CHEMISTRY ORDERA BLES Performing Organization Address City/[facility] Co de Phone Number [facility] [place] [address] * POCT Glucose (04/02/2020 5:17 PM EST) Glucose, POC 85 65 - 199 mg/dL [facility] Comment: Supplemental ranges: <140 mg/dL before meals <180 mg/dL all other times of the day Blood specimen (specimen) 04/02/2020 5:17 PM EST 04/02/2020 5:17 PM EST Davian Carolina MD POINT OF CARE TEST ORDERABLES Performing Organization Address [facility] Co de Phone Number [facility] [place] [address] * UPPER GI ENDOSCOPY (04/02/2020 2:52 PM EST) Pathologist [facility] UPPER GI ENDOSCOPY [facility] Endoscopy Procedure Date: 04/02/2020 2:52 PM ? Patient Name: Linda Abel ? Date of : 1945 ? Age: 74 ? Order #: [id number] ? Instrument Name: [id number] ? Procedure: ? Upper GI endoscopy Indications: [...] Glucose, POC 106 65 - 199 mg/dL [facility] Comment: Supplemental ranges: <140 mg/dL before meals <180 mg/dL all other times of the day Blood specimen (specimen) 04/02/2020 12:12 PM EST 04/02/2020 12:12 PM EST Davian Carolina MD POINT OF CARE TEST ORDERABLES Performing Organization Address [facility] Co de Phone Number [facility] [place] [address] * POCT Glucose (04/02/2020 9:58 AM EST) Glucose, POC 104 65 - 199 mg/dL [facility] Comment: Supplemental ranges: <140 mg/dL before meals <180 mg/dL all other times of the day Blood specimen (specimen) 04/02/2020 9:58 AM EST 04/02/2020 9:58 AM EST Davian Carolina MD POINT OF CARE TEST ORDERABLES Performing Organization Address City/[facility]/ZIP Co de Phone Number [facility] [place] [address] * POCT Glucose (04/02/2020 8:04 AM EST) Glucose, POC 106 65 - 199 mg/dL [facility] Comment: Supplemental ranges: <140 mg/dL before meals <180 mg/dL all other times of the day Blood specimen (specimen) 04/02/2020 8:04 AM EST 04/02/2020 8:04 AM EST Davian Carolina MD POINT [place] [address] * (ABNORMAL) Differential, Automated (04/02/2020 1:40 AM EST) Neutrophil % 88.6 % [facility] Neutrophil Absolute 14.39(H) 1.70 - 6.10 x10(3)/mc L [facility] Lymph % 6.2 % [facility] Lymphocytes Abs 1.0 0.9 - 3.2 x10(3)/mc L [facility] Monocyte % 4.2 % [facility] Monocyte Abs 0.7 0.3 - 0.9 x10(3)/mc L [facility] Eos % 0.1 % [facility] Eosinophils Abs 0.0 0.0 - 0.4 x10(3)/mc L [facility] Basophil % 0.5 % [facility] Baso Absolute 0.1 0.0 - 0.1 x10(3)/mc L [facility] Immature Gran % 0.40 % [facility] Comment: Immature granulocytes(IG's)percentage and absolute count will include metamyelocytes, myelocytes, and promyelocytes. Blood smears from CBCs yielding IG's will be scanned manually for concordance. If this scan disagrees with the automated IG or if promyelocytes are noted, a manual differential will be performed. Immature Gran Absolute 0.07(H) 0.00 - 0.04 x10(3)/mc L [facility] Blood specimen (specimen) 04/02/2020 1:40 AM EST 04/02/2020 1:45 AM EST Narrative Resulting Agency Comment Spec In Lab Anjelica Jordan APRN HEMATOLOGY ORDER MAGAN [facility] [place] [address] * (ABNORMAL) Hemogram (04/02/2020 1:40 AM EST) White Blood Cell 16.2(H) 4.0 - 9.5 x10(3)/mc L [facility] Red Blood Cell 3.53(L) 4.00 - 5.21 x10(6)/ L [facility] Hemoglobin 11.0(L) 11.7 - 15.5 gm/dL [facility] Hematocrit 31.1(L) 35.7 - 45.8 % [facility] Mean Cell Volume 88.1 82.6 - 94.4 fL [facility] Mean Cell Hemoglobin 31.2 27.1 - 32.0 pg [facility] Mean Cell Hemoglobin Concentration 35.4(H) 31.7 - 35.0 gm/dL [facility] Platelet 351 145 - 357 x10(3)/[facility] LABORATORY RDW Standard Deviation 40.2 37.0 - 46.0 fL [facility] RDW coefficient of variation 12.4 11.5 - 14.1 % [facility] Mean Platelet Volume 10.2 7.6 - 12.9 fL [facility] NRBC% auto 0.0 % [facility] NRBC Absolute 0.000 0.000 - 0.000 x10(3)/[facility] LABORATORY Blood specimen (specimen) 04/02/2020 1:40 AM EST 04/02/2020 1:45 AM EST Narrative Resulting Agency Comment Spec In Lab Anjelica Jordan APRN HEMATOLOGY ORDER MAGAN [facility] [place] [address] * Phosphorus (04/02/2020 1:40 AM EST) Phosphorus 3.5 2.5 - 4.5 mg/dL [facility] Blood specimen (specimen) 04/02/2020 1:40 AM EST 04/02/2020 1:45 AM EST Narrative Resulting Agency Comment Spec In Lab Anjelica oJrdan MANAGER ACUTE CHEMISTRY ORDERA BLES Performing Organization Address [facility] de Phone Number [facility] [place] [address] * Magnesium (04/02/2020 1:40 AM EST) Magnesium 0.69 0.69 - 1.07 mmol/L [facility] Blood specimen (specimen) 04/02/2020 1:40 AM EST 04/02/2020 1:45 AM EST Narrative Resulting Agency Comment Spec In Lab Anjelica Alcaraz Nikki MANAGER ACUTE CHEMISTRY ORDERA BLES Performing Organization Address [facility] de Phone Number [facility] [place] [address] * (ABNORMAL) Basic Metabolic Panel (non-fasting) (04/02/2020 1:40 AM EST) Glucose 115 65 - 199 mg/dL [facility] Comment:Diabetes: >=200 mg/d L plus symptoms Blood Urea Nitrogen 11 8 - 18 mg/dL [facility] Creatinine 0.57(L) 0.70 - 1.20 mg/dL [facility] Sodium 131(L) 135 - 145 mmol/L [facility] Potassium 4.3 3.5 - 5.0 mmol/L [facility] Comment: Please note: ??Patients with WBC >100,000 may have falsely elevated Potassium levels. ??For accurate Potassium quantification in these patients send serum separator tube (gold top) for subsequent determinations. ??Contact the Clinical Chemistry Laboratory if there are any questions. Chloride 94(L) 98 - 107 mmol/L [facility] Carbon Dioxide 24 22 - 31 mmol/L [facility] Anion Gap 13 5 - 15 mmol/L [facility] Calcium 8.2(L) 8.5 - 10.5 mg/dL [facility] Est Glomerular Filtration Rate 92 >=60 mL/min/1. 73 m?? [facility] Comment: This patient? s [...] APRN CHEMISTRY ORDERA BLES Performing Organization Address City/[facility]/ZIP Co de Phone Number [facility] [place] [address] * POCT Glucose (04/01/2020 7:48 PM EST) Glucose, POC 109 65 - 199 mg/dL [facility] Comment: Supplemental ranges: <140 mg/dL before meals <180 mg/dL all other times of the day Blood specimen (specimen) 04/01/2020 7:48 PM EST 04/01/2020 7:48 PM EST Davian Carolina MD POINT OF CARE TEST ORDERABLES Performing Organization Address [facility]/ZIP Co de Phone Number [facility] [place] [address] * XR Abdomen 1 view (Generic) (04/01/2020 5:52 PM EST) Anatomical Region Laterality Modality Abdomen N/A Digital Radiogra phy Impressions 04/01/2020 5:59 PM EST Enteric tube with distal side-port overlying the region of the stomach. Thank you for letting us participate in the care of this patient. For questions regarding this report, please contact the number below. ? Electronically signed by: CALEB KAPOOR DO, DH [facility] ([phone]), at 04/01/2020 5:59 PM Narrative 04/01/2020 5:59 [...] Glucose Fasting 112(H) 65 - 99 mg/dL [facility] Comment: ?Fasting* Glucose Interpretive [...] of Diabetes Mellitus, Position Statement from the [place] [employer]. ??Diabetes Care, Volume 33, Supplement 1, Apr 2009 Blood Urea Nitrogen 9 8 - 18 mg/dL [facility] Creatinine 0.51(L) 0.70 - 1.20 mg/dL [facility] Sodium 128(L) 135 - 145 mmol/L [facility] Potassium 3.8 3.5 - 5.0 mmol/L [facility] Comment: Please note: ??Patients with WBC >100,000 may have falsely elevated Potassium levels. ??For accurate Potassium quantification in these patients send serum separator tube (gold top) for subsequent determinations. ??Contact the Clinical Chemistry Laboratory if there are any questions. Chloride 89(L) 98 - 107 mmol/L [facility] Carbon Dioxide 27 22 - 31 mmol/L [facility] Anion Gap 12 5 - 15 mmol/L [facility] Calcium 8.4(L) 8.5 - 10.5 mg/dL [facility] Est Glomerular Filtration Rate 95 >=60 mL/min/1. 73 m?? [facility] Comment: This patient? s [...] MD CHEMISTRY ORDERABL ES Performing Organization Address [facility] Co de Phone Number [facility] [place] [address] * POCT Glucose (04/01/2020 3:31 PM EST) Glucose, POC 111 65 - 199 mg/dL [facility] Comment: Supplemental ranges: <140 mg/dL before meals <180 mg/dL all other times of the day Blood specimen (specimen) 04/01/2020 3:31 PM EST 04/01/2020 3:31 PM EST Davian Carolina MD POINT OF CARE TEST ORDERABLES Performing Organization Address [facility] Co de Phone Number [facility] [place] [address] * CT Abdomen & Pelvis w Contrast [...] administration of contrast. Administered 66.0 ml of [id number] mg/ml. Oral contrast was administered. COMPARISON: Postoperative [...] Glucose, POC 138 65 - 199 mg/dL [facility] Comment: Supplemental ranges: <140 mg/dL before meals <180 mg/dL all other times of the day Blood specimen (specimen) 04/01/2020 11:20 AM EST 04/01/2020 11:20 AM EST Davian Carolina MD POINT OF CARE TEST ORDERABLES [facility] [place] [address] * POCT Glucose (04/01/2020 7:30 AM EST) Glucose, POC 170 65 - 199 mg/dL [facility] Comment: Supplemental ranges: <140 mg/dL before meals <180 mg/dL all other times of the day Blood specimen (specimen) 04/01/2020 7:30 AM EST 04/01/2020 7:30 AM EST Davian Carolina MD POINT OF CARE TEST ORDERABLES [facility] [place] [address] * POCT Glucose (04/01/2020 4:43 AM EST) Pathologist [facility] Glucose, POC 152 65 - 199 mg/dL [facility] Comment: Supplemental ranges: <140 mg/dL before meals <180 mg/dL all other times of the day Blood specimen (specimen) 04/01/2020 4:43 AM EST 04/01/2020 4:43 AM EST Davian Carolina MD POINT OF CARE TEST ORDERABLES Performing Organization Address City/[facility]/ZIP Co de Phone Number [facility] [place] [address] * (ABNORMAL) Differential, Automated (04/01/2020 4:20 AM EST) [facility] Neutrophil % 85.6 % [facility] Neutrophil Absolute 8.42(H) 1.70 - 6.10 x10(3)/mc L [facility] Lymph % 7.1 % [facility] Lymphocytes Abs 0.7(L) 0.9 - 3.2 x10(3)/mc L [facility] Monocyte % 5.2 % [facility] Monocyte Abs 0.5 0.3 - 0.9 x10(3)/mc L [facility] Eos % 1.2 % [facility] Eosinophils Abs 0.1 0.0 - 0.4 x10(3)/mc L [facility] Basophil % 0.4 % [facility] Baso Absolute 0.0 0.0 - 0.1 x10(3)/mc L [facility] Immature Gran % 0.50 % [facility] Comment: Immature granulocytes(IG's)percentage and absolute count will include metamyelocytes, myelocytes, and promyelocytes. Blood smears from CBCs yielding IG's will be scanned manually for concordance. If this scan disagrees with the automated IG or if promyelocytes are noted, a manual differential will be performed. Immature Gran Absolute 0.05(H) 0.00 - 0.04 x10(3)/mc L [facility] Blood specimen (specimen) 04/01/2020 4:20 AM EST 04/01/2020 4:30 AM EST Narrative Resulting Agency Comment Spec In Lab Edwardo Mccormack MD HEMATOLOGY ORDERABLE S [facility] [place] [address] * (ABNORMAL) Hemogram (04/01/2020 4:20 AM EST) White Blood Cell 9.8(H) 4.0 - 9.5 x10(3)/mc L [facility] Red Blood Cell 3.72(L) 4.00 - 5.21 x10(6)/mc L [facility] Hemoglobin 11.3(L) 11.7 - 15.5 gm/dL [facility] Hematocrit 32.9(L) 35.7 - 45.8 % [facility] Mean Cell Volume 88.4 82.6 - 94.4 fL [facility] Mean Cell Hemoglobin 30.4 27.1 - 32.0 pg [facility] Mean Cell Hemoglobin Concentration 34.3 31.7 - 35.0 gm/dL [facility] Platelet 320 145 - 357 x10(3)/mc L [facility] RDW Standard Deviation 39.5 37.0 - 46.0 fL [facility] RDW coefficient of variation 12.2 11.5 - 14.1 % [facility] Mean Platelet Volume 10.6 7.6 - 12.9 fL [facility] NRBC% auto 0.0 % [facility] NRBC Absolute 0.000 0.000 - 0.000 x10(3)/mc L [facility] Blood specimen (specimen) 04/01/2020 4:20 AM EST 04/01/2020 4:30 AM EST Narrative Resulting Agency Comment Spec In Lab Edwarod Mccormack MD HEMATOLOGY ORDERABLE S [facility] [place] [address] * (ABNORMAL) Basic Metabolic Panel (non-fasting) (04/01/2020 4:20 AM EST) Glucose 141 65 - 199 mg/dL [facility] Comment:Diabetes: >=200 mg/d L plus symptoms Blood Urea Nitrogen 11 8 - 18 mg/dL [facility] Creatinine 0.48(L) 0.70 - 1.20 mg/dL [facility] Sodium 130(L) 135 - 145 mmol/L [facility] Potassium 3.5 3.5 - 5.0 mmol/L [facility] Comment: Please note: ??Patients with WBC >100,000 may have falsely elevated Potassium levels. ??For accurate Potassium quantification in these patients send serum separator tube (gold top) for subsequent determinations. ??Contact the Clinical Chemistry Laboratory if there are any questions. Chloride 91(L) 98 - 107 mmol/L [facility] Carbon Dioxide 31 22 - 31 mmol/L [facility] Anion Gap 8 5 - 15 mmol/L [facility] Calcium 8.3(L) 8.5 - 10.5 mg/dL [facility] Est Glomerular Filtration Rate 97 >=60 mL/min/1. 73 m?? [facility] Comment: This patient? s [...] MD CHEMISTRY ORDERABL ES Performing Organization Address [facility] Co de Phone Number [facility] [place] [address] * POCT Glucose (04/01/2020 12:06 AM EST) Glucose, POC 141 65 - 199 mg/dL [facility] Comment: Supplemental ranges: <140 mg/dL before meals <180 mg/dL all other times of the day Blood specimen (specimen) 04/01/2020 12:06 AM EST 04/01/2020 12:06 AM EST Davian Carolina MD POINT OF CARE TEST ORDERABLES Performing Organization Address [facility] Co de Phone Number [facility] [place] [address] * POCT Glucose (03/31/2020 8:52 PM EST) Glucose, POC 159 65 - 199 mg/dL [facility] Comment: Supplemental ranges: <140 mg/dL before meals <180 mg/dL all other times of the day Blood specimen (specimen) 03/31/2020 8:52 PM EST 03/31/2020 8:52 PM EST Davian Carolina MD POINT OF CARE TEST ORDERABLES Performing Organization Address [facility] Co de Phone Number [facility] [place] [address] * XR Abdomen Flat & Upright (03/31/2020 [...] Glucose, POC 169 65 - 199 mg/dL [facility] Comment: Supplemental ranges: <140 mg/dL before meals <180 mg/dL all other times of the day Blood specimen (specimen) 03/31/2020 4:52 PM EST 03/31/2020 4:52 PM EST Davian Carolina MD POINT OF CARE TEST ORDERABLES [facility] [place] [address] * POCT Glucose (03/31/2020 12:03 PM EST) Glucose, POC 134 65 - 199 mg/dL [facility] Comment: Supplemental ranges: <140 mg/dL before meals <180 mg/dL all other times of the day Blood specimen (specimen) 03/31/2020 12:03 PM EST 03/31/2020 12:03 PM EST Davian Carolina MD POINT OF CARE TEST ORDERABLES Performing Organization Address City/[facility]/ZIP Co de Phone Number [facility] [place] [address] * POCT Glucose (03/31/2020 7:35 AM EST) Glucose, POC 128 65 - 199 mg/dL [facility] Comment: Supplemental ranges: <140 mg/dL before meals <180 mg/dL all other times of the day Blood specimen (specimen) 03/31/2020 7:35 AM EST 03/31/2020 7:35 AM EST Davian Carolina MD POINT OF CARE TEST ORDERABLES Performing Organization Address City/[facility] de Phone Number [facility] [place] [address] * (ABNORMAL) Differential, Automated (03/31/2020 6:36 AM EST) [facility] Neutrophil % 81.8 % [facility] Neutrophil Absolute 7.38(H) 1.70 - 6.10 x10(3)/mc L [facility] Lymph % 7.7 % [facility] Lymphocytes Abs 0.7(L) 0.9 - 3.2 x10(3)/mc L [facility] Monocyte % 6.9 % [facility] Monocyte Abs 0.6 0.3 - 0.9 x10(3)/mc L [facility] Eos % 2.7 % [facility] Eosinophils Abs 0.2 0.0 - 0.4 x10(3)/mc L [facility] Basophil % 0.3 % [facility] Baso Absolute 0.0 0.0 - 0.1 x10(3)/mc L [facility] Immature Gran % 0.60 % [facility] Comment: Immature granulocytes(IG's)percentage and absolute count will include metamyelocytes, myelocytes, and promyelocytes. Blood smears from CBCs yielding IG's will be scanned manually for concordance. If this scan disagrees with the automated IG or if promyelocytes are noted, a manual differential will be performed. Immature Gran Absolute 0.05(H) 0.00 - 0.04 x10(3)/mc L [facility] Blood specimen (specimen) 03/31/2020 6:36 AM EST 03/31/2020 6:55 AM EST Narrative Resulting Agency Comment Spec In Lab Anjelica Jordan APRN HEMATOLOGY ORDER MAGAN [facility] [place] [address] * (ABNORMAL) Hemogram (03/31/2020 6:36 AM EST) White Blood Cell 9.0 4.0 - 9.5 x10(3)/mc L [facility] Red Blood Cell 3.76(L) 4.00 - 5.21 x10(6)/mc L [facility] Hemoglobin 11.4(L) 11.7 - 15.5 gm/dL [facility] Hematocrit 33.7(L) 35.7 - 45.8 % [facility] Mean Cell Volume 89.6 82.6 - 94.4 fL [facility] Mean Cell Hemoglobin 30.3 27.1 - 32.0 pg [facility] Mean Cell Hemoglobin Concentration 33.8 31.7 - 35.0 gm/dL [facility] Platelet 252 145 - 357 x10(3)/mc L [facility] RDW Standard Deviation 41.2 37.0 - 46.0 fL [facility] RDW coefficient of variation 12.5 11.5 - 14.1 % [facility] Mean Platelet Volume 10.7 7.6 - 12.9 fL [facility] NRBC% auto 0.0 % [facility] NRBC Absolute 0.000 0.000 - 0.000 x10(3)/mc L [facility] Blood specimen (specimen) 03/31/2020 6:36 AM EST 03/31/2020 6:55 AM EST Narrative Resulting Agency Comment Spec In Lab Anjelica Jordan MANAGER ACUTE HEMATOLOGY ORDER MAGAN [facility] [place] [address] * (ABNORMAL) BMP w/fasting Glucose (03/31/2020 6:36 AM EST) Glucose Fasting 115(H) 65 - 99 mg/dL [facility] Comment: ?Fasting* Glucose Interpretive [...] of Diabetes Mellitus, Position Statement from the [place] [employer]. ??Diabetes Care, Volume 33, Supplement 1, Apr 2009 Blood Urea Nitrogen 16 8 - 18 mg/dL [facility] Creatinine 0.48(L) 0.70 - 1.20 mg/dL [facility] Sodium 133(L) 135 - 145 mmol/L [facility] Potassium 3.9 3.5 - 5.0 mmol/L [facility] Comment: Please note: ??Patients with WBC >100,000 may have falsely elevated Potassium levels. ??For accurate Potassium quantification in these patients send serum separator tube (gold top) for subsequent determinations. ??Contact the Clinical Chemistry Laboratory if there are any questions. Chloride 95(L) 98 - 107 mmol/L [facility] Carbon Dioxide 29 22 - 31 mmol/L [facility] Anion Gap 9 5 - 15 mmol/L [facility] Calcium 8.7 8.5 - 10.5 mg/dL [facility] Est Glomerular Filtration Rate 97 >=60 mL/min/1. 73 m?? [facility] Comment: This patient? s [...] MD CHEMISTRY ORDERABL ES Performing Organization Address City/[facility]/ZIP Co de Phone Number [facility] [place] [address] * Phosphorus (03/31/2020 6:36 AM EST) Phosphorus 3.7 2.5 - 4.5 mg/dL [facility] Blood specimen (specimen) 03/31/2020 6:36 AM EST 03/31/2020 6:55 AM EST Narrative Resulting Agency Comment Spec In Lab Anjelica Jordan APRN CHEMISTRY ORDERA BLES [facility] [place] [address] * Magnesium (03/31/2020 6:36 AM EST) Magnesium 0.77 0.69 - 1.07 mmol/L [facility] Blood specimen (specimen) 03/31/2020 6:36 AM EST 03/31/2020 6:55 AM EST Narrative Resulting Agency Comment Spec In Lab Anjelica Jordan APRN CHEMISTRY ORDERA BLES Performing Organization Address [facility] Co de Phone Number [facility] [place] [address] * POCT Glucose (03/30/2020 8:05 PM EST) Glucose, POC 136 65 - 199 mg/dL [facility] Comment: Supplemental ranges: <140 mg/dL before meals <180 mg/dL all other times of the day Blood specimen (specimen) 03/30/2020 8:05 PM EST 03/30/2020 8:05 PM EST Davian Carolina MD POINT OF CARE TEST ORDERABLES Performing Organization Address [facility] Co de Phone Number [facility] [place] [address] * POCT Glucose (03/30/2020 4:55 PM EST) Glucose, POC 129 65 - 199 mg/dL [facility] Comment: Supplemental ranges: <140 mg/dL before meals <180 mg/dL all other times of the day Blood specimen (specimen) 03/30/2020 4:55 PM EST 03/30/2020 4:55 PM EST Davian Carolina MD POINT OF CARE TEST ORDERABLES Performing Organization Address [facility] Co de Phone Number [facility] [place] [address] * C-peptide (03/30/2020 1:45 PM EST) Pathologist [facility] C-Peptide 1.4 0.8 - 5.2 ng/mL [facility] Blood specimen (specimen) 03/30/2020 1:45 PM EST 03/30/2020 1:52 PM EST Narrative Resulting Agency Comment Spec In Lab Katiemynor Santamaria APRN CHEMISTRY ORDERABLE S Performing Organization Address [facility] Co de Phone Number [facility] [place] [address] * POCT Glucose (03/30/2020 11:41 AM EST) Glucose, POC 156 65 - 199 mg/dL [facility] Comment: Supplemental ranges: <140 mg/dL before meals <180 mg/dL all other times of the day Blood specimen (specimen) 03/30/2020 11:41 AM EST 03/30/2020 11:41 AM EST Davian Carolina MD POINT OF CARE TEST ORDERABLES Performing Organization Address [facility] de Phone Number [facility] [place] [address] * POCT Glucose (03/30/2020 7:43 AM EST) Glucose, POC 160 65 - 199 mg/dL [facility] Comment: Supplemental ranges: <140 mg/dL before meals <180 mg/dL all other times of the day Blood specimen (specimen) 03/30/2020 7:43 AM EST 03/30/2020 7:43 AM EST Davian Carolina MD POINT OF CARE TEST ORDERABLES Performing Organization Address [facility] Co de Phone Number [facility] [place] [address] * (ABNORMAL) Hemoglobin A1c (03/30/2020 1:20 AM EST) Hemoglobin A1c 5.8(H) 4.3 - 5.6 % [facility] Comment: Reference Range: 4.3 [...] Mellitus, Diabetes Care 2013; 36: Suppl. 1, S66-10 Estimated Average Glucose See note mg/dL [facility] Comment: Estimated Average Glucose [...] into estimated average glucose values. ??Diabetes Care 2008:31(8):4768-2772. Blood specimen (specimen) Venous Draw / Unknown 03/30/2020 1:20 AM EST 03/30/2020 8:28 AM EST Narrative Resulting Agency Comment Spec In Lab Anjelica Jordan APRN CHEMISTRY VANI FLYNN [facility] [place] [address] * (ABNORMAL) Differential, Automated (03/30/2020 1:20 AM EST) Neutrophil % 77.8 % [facility] Neutrophil Absolute 8.06(H) 1.70 - 6.10 x10(3)/ L [facility] Lymph % 12.1 % [facility] Lymphocytes Abs 1.2 0.9 - 3.2 x10(3)/[facility] Monocyte % 7.0 % [facility] Monocyte Abs 0.7 0.3 - 0.9 x10(3)/[facility] Eos % 2.4 % [facility] Eosinophils Abs 0.2 0.0 - 0.4 x10(3)/[facility] Basophil % 0.2 % [facility] Baso Absolute 0.0 0.0 - 0.1 x10(3)/[facility] Immature Gran % 0.50 % [facility] Comment: Immature granulocytes(IG's)percentage and absolute count will include metamyelocytes, myelocytes, and promyelocytes. Blood smears from CBCs yielding IG's will be scanned manually for concordance. If this scan disagrees with the automated IG or if promyelocytes are noted, a manual differential will be performed. Immature Gran Absolute 0.05(H) 0.00 - 0.04 x10(3)/[facility] Blood specimen (specimen) 03/30/2020 1:20 AM EST 03/30/2020 1:33 AM EST Narrative Resulting Agency Comment Spec In Lab Anjelica Jordan APRN HEMATOLOGY ORDER MAGAN [facility] [place] [address] * (ABNORMAL) Hemogram (03/30/2020 1:20 AM EST) White Blood Cell 10.4(H) 4.0 - 9.5 x10(3)/ L [facility] Red Blood Cell 3.91(L) 4.00 - 5.21 x10(6)/[facility] Hemoglobin 12.0 11.7 - 15.5 gm/dL [facility] Hematocrit 34.9(L) 35.7 - 45.8 % [facility] Mean Cell Volume 89.3 82.6 - 94.4 [facility] Mean Cell Hemoglobin 30.7 27.1 - 32.0 pg [facility] Mean Cell Hemoglobin Concentration 34.4 31.7 - 35.0 gm/dL [facility] Platelet 231 145 - 357 x10(3)/mc L [facility] RDW Standard Deviation 40.1 37.0 - 46.0 [facility] RDW coefficient of variation 12.4 11.5 - 14.1 % [facility] Mean Platelet Volume 10.2 7.6 - 12.9 [facility] [facility] NRBC% auto 0.0 % [facility] NRBC Absolute 0.000 0.000 - 0.000 x10(3)/mc L [facility] Blood specimen (specimen) 03/30/2020 1:20 AM EST 03/30/2020 1:33 AM EST Narrative Resulting Agency Comment Spec In Lab Anjelica Jordan APRN HEMATOLOGY ORDER MAGAN [facility] [place] [address] * (ABNORMAL) BMP w/fasting Glucose (03/30/2020 1:20 AM EST) Glucose Fasting 158(H) 65 - 99 mg/dL [facility] Comment: ?Fasting* Glucose Interpretive [...] of Diabetes Mellitus, Position Statement from the [place] [employer]. ??Diabetes Care, Volume 33, Supplement 1, Apr 2009 Blood Urea Nitrogen 15 8 - 18 mg/dL [facility] Creatinine 0.40(L) 0.70 - 1.20 mg/dL [facility] Sodium 135 135 - 145 mmol/L [facility] Potassium 3.7 3.5 - 5.0 mmol/L [facility] Comment: Please note: ??Patients with WBC >100,000 may have falsely elevated Potassium levels. ??For accurate Potassium quantification in these patients send serum separator tube (gold top) for subsequent determinations. ??Contact the Clinical Chemistry Laboratory if there are any questions. Chloride 98 98 - 107 mmol/L [facility] Carbon Dioxide 28 22 - 31 mmol/L [facility] Anion Gap 9 5 - 15 mmol/L [facility] Calcium 8.2(L) 8.5 - 10.5 mg/dL [facility] Est Glomerular Filtration Rate 103 >=60 mL/min/1. 73 m?? [facility] Comment: This patient? s [...] Lab Davian Carolina MD CHEMISTRY ORDERABL ES [facility] [place] [address] * Phosphorus (03/30/2020 1:20 AM EST) Phosphorus 3.3 2.5 - 4.5 mg/dL [facility] Blood specimen (specimen) 03/30/2020 1:20 AM EST 03/30/2020 1:33 AM EST Narrative Resulting Agency Comment Spec In Lab Anjelica Jordan APRN CHEMISTRY ORDERA BLES Performing Organization Address [facility]/ZIP Co de Phone Number [facility] [place] [address] * Magnesium (03/30/2020 1:20 AM EST) [facility] Signature Magnesium 0.83 0.69 - 1.07 mmol/L [facility] Blood specimen (specimen) 03/30/2020 1:20 AM EST 03/30/2020 1:33 AM EST Narrative Resulting Agency Comment Spec In Lab Anjelica Jordan APRN CHEMISTRY ORDERA BLES Performing Organization Address [facility] Co de Phone Number [facility] [place] [address] * POCT Glucose (03/29/2020 8:57 PM EST) [facility] Signature Glucose, POC 154 65 - 199 mg/dL [facility] Comment: Supplemental ranges: <140 mg/dL before meals <180 mg/dL all other times of the day Blood specimen (specimen) 03/29/2020 8:57 PM EST 03/29/2020 8:57 PM EST Davian Carolina MD POINT OF CARE TEST ORDERABLES Performing Organization Address City/[facility]/ZIP Co de Phone Number [facility] [place] [address] * POCT Glucose (03/29/2020 4:13 PM EST) Glucose, POC 181 65 - 199 mg/dL [facility] Comment: Supplemental ranges: <140 mg/dL before meals <180 mg/dL all other times of the day Blood specimen (specimen) 03/29/2020 4:13 PM EST 03/29/2020 4:13 PM EST Davian Carolina MD POINT OF CARE TEST ORDERABLES [facility] [place] [address] * POCT Glucose (03/29/2020 12:25 PM EST) Glucose, POC 196 65 - 199 mg/dL [facility] Comment: Supplemental ranges: <140 mg/dL before meals <180 mg/dL all other times of the day Blood specimen (specimen) 03/29/2020 12:25 PM EST 03/29/2020 12:25 PM EST Davian Carolina MD POINT OF CARE TEST ORDERABLES Performing Organization Address City/[facility]/ZIP Co de Phone Number [facility] [place] [address] * POCT Glucose (03/29/2020 8:24 AM EST) Glucose, POC 171 65 - 199 mg/dL [facility] Comment: Supplemental ranges: <140 mg/dL before meals <180 mg/dL all other times of the day Blood specimen (specimen) 03/29/2020 8:24 AM EST 03/29/2020 8:24 AM EST Davian Carolina MD POINT OF CARE TEST ORDERABLES [facility] [place] [address] * POCT Glucose (03/29/2020 4:22 AM EST) Glucose, POC 151 65 - 199 mg/dL [facility] Comment: Supplemental ranges: <140 mg/dL before meals <180 mg/dL all other times of the day Blood specimen (specimen) 03/29/2020 4:22 AM EST 03/29/2020 4:22 AM EST Davian Carolina MD POINT OF CARE TEST ORDERABLES Performing Organization Address [facility] Phone Number [facility] [place] [address] * Phosphorus (03/29/2020 2:30 AM EST) Phosphorus 3.0 2.5 - 4.5 mg/dL [facility] Blood specimen (specimen) 03/29/2020 2:30 AM EST 03/29/2020 2:46 AM EST Narrative Resulting Agency Comment Spec In Lab Davian Carolina MD CHEMISTRY ORDERABL ES Performing Organization Address [facility] Phone Number [facility] [place] [address] * Magnesium (03/29/2020 2:30 AM EST) Magnesium 0.86 0.69 - 1.07 mmol/L [facility] Blood specimen (specimen) 03/29/2020 2:30 AM EST 03/29/2020 2:46 AM EST Narrative Resulting Agency Comment Spec In Lab Davian Carolina MD CHEMISTRY ORDERABL ES Performing Organization Address [facility] Phone Number [facility] [place] [address] * (ABNORMAL) Basic Metabolic Panel (non-fasting) (03/29/2020 2:30 AM EST) Glucose 163 65 - 199 mg/dL [facility] Comment:Diabetes: >=200 mg/d L plus symptoms Blood Urea Nitrogen 18 8 - 18 mg/dL [facility] Creatinine 0.40(L) 0.70 - 1.20 mg/dL [facility] Sodium 139 135 - 145 mmol/L [facility] Potassium 3.6 3.5 - 5.0 mmol/L [facility] Comment: Please note: ??Patients with WBC >100,000 may have falsely elevated Potassium levels. ??For accurate Potassium quantification in these patients send serum separator tube (gold top) for subsequent determinations. ??Contact the Clinical Chemistry Laboratory if there are any questions. Chloride 104 98 - 107 mmol/L [facility] Carbon Dioxide 28 22 - 31 mmol/L [facility] Anion Gap 7 5 - 15 mmol/L [facility] Calcium 7.9(L) 8.5 - 10.5 mg/dL [facility] Est Glomerular Filtration Rate 103 >=60 mL/min/1. 73 m?? [facility] Comment: This patient? s [...] Lab Davian Carolina MD CHEMISTRY ORDERABL ES [facility] [place] [address] * Differential, Automated (03/29/2020 1:20 AM EST) Neutrophil % 71.0 % [facility] Neutrophil Absolute 4.85 1.70 - 6.10 x10(3)/mcL [facility] Lymph % 15.4 % [facility] Lymphocytes Abs 1.0 0.9 - 3.2 x10(3)/[facility] LABORATORY Monocyte % 10.1 % [facility] Monocyte Abs 0.7 0.3 - 0.9 x10(3)/[facility] LABORATORY Eos % 2.6 % [facility] Eosinophils Abs 0.2 0.0 - 0.4 x10(3)/[facility] LABORATORY Basophil % 0.3 % [facility] Baso Absolute 0.0 0.0 - 0.1 x10(3)/[facility] LABORATORY Immature Gran % 0.60 % [facility] Comment: Immature granulocytes(IG's)percentage and absolute count will include metamyelocytes, myelocytes, and promyelocytes. Blood smears from CBCs yielding IG's will be scanned manually for concordance. If this scan disagrees with the automated IG or if promyelocytes are noted, a manual differential will be performed. Immature Gran Absolute 0.04 0.00 - 0.04 x10(3)/[facility] LABORATORY Blood specimen (specimen) 03/29/2020 1:20 AM EST 03/29/2020 1:42 AM EST Narrative Resulting Agency Comment Spec In Lab Anjelica Jordan APRN HEMATOLOGY ORDER MAGAN Performing Organization Address City/State/[facility] Co de Phone Number [facility] [place] [address] * (ABNORMAL) Hemogram (03/29/2020 1:20 AM EST) White Blood Cell 6.8 4.0 - 9.5 x10(3)/ L [facility] Red Blood Cell 3.37(L) 4.00 - 5.21 x10(6)/ L [facility] Hemoglobin 11.3(L) 11.7 - 15.5 gm/dL [facility] Hematocrit 31.8(L) 35.7 - 45.8 % [facility] Mean Cell Volume 94.4 82.6 - 94.4 fL [facility] Mean Cell Hemoglobin 33.5(H) 27.1 - 32.0 pg [facility] Mean Cell Hemoglobin Concentration 35.5(H) 31.7 - 35.0 gm/dL [facility] Platelet 176 145 - 357 x10(3)/mc L [facility] RDW Standard Deviation 43.8 37.0 - 46.0 [facility] LABORATORY RDW coefficient of variation 12.6 11.5 - 14.1 % [facility] Mean Platelet Volume 10.4 7.6 - 12.9 [facility] LABORATORY NRBC% auto 0.0 % [facility] NRBC Absolute 0.000 0.000 - 0.000 x10(3)/mc L [facility] Blood specimen (specimen) 03/29/2020 1:20 AM EST 03/29/2020 1:42 AM EST Narrative Resulting Agency Comment Spec In Lab Anjelica Jordan APRN HEMATOLOGY ORDER MAGAN [facility] [place] [address] * POCT Glucose (03/29/2020 12:05 AM EST) Glucose, POC 142 65 - 199 mg/dL [facility] Comment: Supplemental ranges: <140 mg/dL before meals <180 mg/dL all other times of the day Blood specimen (specimen) 03/29/2020 12:05 AM EST 03/29/2020 12:05 AM EST Davian Carolina MD POINT OF CARE TEST ORDERABLES [facility] [place] [address] * POCT Glucose (03/28/2020 7:28 PM EST) Glucose, POC 174 65 - 199 mg/dL [facility] Comment: Supplemental ranges: <140 mg/dL before meals <180 mg/dL all other times of the day Blood specimen (specimen) 03/28/2020 7:28 PM EST 03/28/2020 7:28 PM EST Davian Carolina MD POINT OF CARE TEST ORDERABLES Performing Organization Address City/[facility]/ZIP Co de Phone Number [facility] [place] [address] * POCT Glucose (03/28/2020 4:01 PM EST) Glucose, POC 190 65 - 199 mg/dL [facility] Comment: Supplemental ranges: <140 mg/dL before meals <180 mg/dL all other times of the day Blood specimen (specimen) 03/28/2020 4:01 PM EST 03/28/2020 4:01 PM EST Davian Carolina MD POINT OF CARE TEST ORDERABLES Performing Organization Address [facility]/ZIP Co de Phone Number [facility] [place] [address] * POCT Glucose (03/28/2020 11:34 AM EST) Glucose, POC 188 65 - 199 mg/dL [facility] Comment: Supplemental ranges: <140 mg/dL before meals <180 mg/dL all other times of the day Blood specimen (specimen) 03/28/2020 11:34 AM EST 03/28/2020 11:34 AM EST Davian Carolina MD POINT OF CARE TEST ORDERABLES Performing Organization Address City/[facility]/ZIP Co de Phone Number [facility] [place] [address] * POCT Glucose (03/28/2020 7:30 AM EST) Glucose, POC 180 65 - 199 mg/dL [facility] Comment: Supplemental ranges: <140 mg/dL before meals <180 mg/dL all other times of the day Blood specimen (specimen) 03/28/2020 7:30 AM EST 03/28/2020 7:30 AM EST Davian Carolina MD POINT OF CARE TEST ORDERABLES Performing Organization Address [facility] de Phone Number [facility] [place] [address] * Amylase Level Body Fluid KHRIS Drain (03/28/2020 4:00 AM EST) Pathologist [facility] Amylase, Fluid 12 unit/L [facility] Comment: No reference range is available for the specimen type submitted. ??The performance of this assay for the submitted type has not been validated and results should be interpreted accordingly and with regard to the patient's clinical status. Amylase BF Type KHRIS Drain [facility] KHRIS Drain 03/28/2020 4:00 AM EST 03/28/2020 4:16 AM EST Narrative Resulting Agency Comment Spec In Lab Davian Carolina MD BODY FLUIDS AND ST OOLS ORDERABLES Performing Organization Address [facility] de Phone Number [facility] [place] [address] * (ABNORMAL) POCT Glucose (03/28/2020 3:57 AM EST) Pathologist [facility] Glucose, POC 200(H) 65 - 199 mg/dL [facility] Comment: Supplemental ranges: <140 mg/dL before meals <180 mg/dL all other times of the day Blood specimen (specimen) 03/28/2020 3:57 AM EST 03/28/2020 3:57 AM EST Davian Carolina MD POINT OF CARE TEST ORDERABLES Performing Organization Address [facility] Co de Phone Number [facility] [place] [address] * Differential, Automated (03/28/2020 1:45 AM EST) Pathologist [facility] Neutrophil % 69.0 % [facility] Neutrophil Absolute 4.74 1.70 - 6.10 x10(3)/[facility] LABORATORY Lymph % 16.0 % [facility] Lymphocytes Abs 1.1 0.9 - 3.2 x10(3)/[facility] LABORATORY Monocyte % 10.3 % [facility] Monocyte Abs 0.7 0.3 - 0.9 x10(3)/[facility] LABORATORY Eos % 4.1 % [facility] Eosinophils Abs 0.3 0.0 - 0.4 x10(3)/[facility] LABORATORY Basophil % 0.3 % [facility] Baso Absolute 0.0 0.0 - 0.1 x10(3)/[facility] LABORATORY Immature Gran % 0.30 % [facility] Comment: Immature granulocytes(IG's)percentage and absolute count will include metamyelocytes, myelocytes, and promyelocytes. Blood smears from CBCs yielding IG's will be scanned manually for concordance. If this scan disagrees with the automated IG or if promyelocytes are noted, a manual differential will be performed. Immature Gran Absolute 0.02 0.00 - 0.04 x10(3)/[facility] LABORATORY Blood specimen (specimen) 03/28/2020 1:45 AM EST 03/28/2020 1:52 AM EST Narrative Resulting Agency Comment Spec In Lab Anjelica Jordan APRN HEMATOLOGY ORDER MAGAN [facility] [place] [address] * (ABNORMAL) Hemogram (03/28/2020 1:45 AM EST) White Blood Cell 6.9 4.0 - 9.5 x10(3)/ L [facility] Red Blood Cell 3.68(L) 4.00 - 5.21 x10(6)/ L [facility] Hemoglobin 11.3(L) 11.7 - 15.5 gm/dL [facility] Hematocrit 33.4(L) 35.7 - 45.8 % [facility] Mean Cell Volume 90.8 82.6 - 94.4 fL [facility] Mean Cell Hemoglobin 30.7 27.1 - 32.0 pg [facility] Mean Cell Hemoglobin Concentration 33.8 31.7 - 35.0 gm/dL [facility] Platelet 205 145 - 357 x10(3)/mc L [facility] RDW Standard Deviation 40.5 37.0 - 46.0 fL [facility] RDW coefficient of variation 12.1 11.5 - 14.1 % [facility] Mean Platelet Volume 10.0 7.6 - 12.9 [facility] LABORATORY NRBC% auto 0.0 % [facility] NRBC Absolute 0.000 0.000 - 0.000 x10(3)/mc L [facility] Blood specimen (specimen) 03/28/2020 1:45 AM EST 03/28/2020 1:52 AM EST Narrative Resulting Agency Comment Spec In Lab Anjelica Jordan APRN HEMATOLOGY ORDER MAGAN [facility] [place] [address] * (ABNORMAL) BMP w/fasting Glucose (03/28/2020 1:45 AM EST) Glucose Fasting 165(H) 65 - 99 mg/dL [facility] Comment: ?Fasting* Glucose Interpretive [...] of Diabetes Mellitus, Position Statement from the [place] [employer]. ??Diabetes Care, Volume 33, Supplement 1, Apr 2009 Blood Urea Nitrogen 17 8 - 18 mg/dL [facility] Creatinine 0.46(L) 0.70 - 1.20 mg/dL [facility] Sodium 139 135 - 145 mmol/L [facility] Potassium 3.7 3.5 - 5.0 mmol/L [facility] Comment: Please note: ??Patients with WBC >100,000 may have falsely elevated Potassium levels. ??For accurate Potassium quantification in these patients send serum separator tube (gold top) for subsequent determinations. ??Contact the Clinical Chemistry Laboratory if there are any questions. Chloride 103 98 - 107 mmol/L [facility] Carbon Dioxide 27 22 - 31 mmol/L [facility] Anion Gap 9 5 - 15 mmol/L [facility] Calcium 8.4(L) 8.5 - 10.5 mg/dL [facility] Est Glomerular Filtration Rate 99 >=60 mL/min/1. 73 m?? [facility] Comment: This patient? s [...] Lab Davian Carolina MD CHEMISTRY ORDERABL ES [facility] [place] [address] * Phosphorus (03/28/2020 1:45 AM EST) Phosphorus 2.9 2.5 - 4.5 mg/dL [facility] Blood specimen (specimen) 03/28/2020 1:45 AM EST 03/28/2020 1:52 AM EST Narrative Resulting Agency Comment Spec In Lab Anjelica Jordan MANAGER ACUTE CHEMISTRY ORDERA BLES Performing Organization Address City/[facility]/ZIP Co de Phone Number [facility] [place] [address] * Magnesium (03/28/2020 1:45 AM EST) Pathologist [facility] Magnesium 0.87 0.69 - 1.07 mmol/L [facility] Blood specimen (specimen) 03/28/2020 1:45 AM EST 03/28/2020 1:52 AM EST Narrative Resulting Agency Comment Spec In Lab Anjelica Jordan MANAGER ACUTE CHEMISTRY ORDERA BLES Performing Organization Address [facility]/ZIP Co de Phone Number [facility] [place] [address] * (ABNORMAL) Amylase (03/28/2020 1:45 AM EST) Amylase 18(L) 28 - 100 unit/L [facility] Blood specimen (specimen) 03/28/2020 1:45 AM EST 03/28/2020 1:52 AM EST Narrative Resulting Agency Comment Spec In Lab Anjelica Jordan MANAGER ACUTE CHEMISTRY ORDERA BLES Performing Organization Address [facility] Co de Phone Number [facility] [place] [address] * POCT Glucose (03/28/2020 12:03 AM EST) Pathologist [facility] Glucose, POC 157 65 - 199 mg/dL [facility] Comment: Supplemental ranges: <140 mg/dL before meals <180 mg/dL all other times of the day Blood specimen (specimen) 03/28/2020 12:03 AM EST 03/28/2020 12:03 AM EST Davian Carolina MD POINT OF CARE TEST ORDERABLES Performing Organization Address City/[facility] Co de Phone Number [facility] [place] [address] * POCT Glucose (03/27/2020 8:06 PM EST) Glucose, POC 84 65 - 199 mg/dL [facility] Comment: Supplemental ranges: <140 mg/dL before meals <180 mg/dL all other times of the day Blood specimen (specimen) 03/27/2020 8:06 PM EST 03/27/2020 8:06 PM EST Davian Carolina MD POINT OF CARE TEST ORDERABLES Performing Organization Address [facility] Co de Phone Number [facility] [place] [address] * POCT Glucose (03/27/2020 4:16 PM EST) Glucose, POC 190 65 - 199 mg/dL [facility] Comment: Supplemental ranges: <140 mg/dL before meals <180 mg/dL all other times of the day Blood specimen (specimen) 03/27/2020 4:16 PM EST 03/27/2020 4:16 PM EST Davian Carolina MD POINT OF CARE TEST ORDERABLES Performing Organization Address City/[facility] Co de Phone Number [facility] [place] [address] * POCT Glucose (03/27/2020 11:28 AM EST) Glucose, POC 92 65 - 199 mg/dL [facility] Comment: Supplemental ranges: <140 mg/dL before meals <180 mg/dL all other times of the day Blood specimen (specimen) 03/27/2020 11:28 AM EST 03/27/2020 11:28 AM EST Davian Carolina MD POINT OF CARE TEST ORDERABLES Performing Organization Address [facility] de Phone Number [facility] [place] [address] * POCT Glucose (03/27/2020 7:52 AM EST) Glucose, POC 71 65 - 199 mg/dL [facility] Comment: Supplemental ranges: <140 mg/dL before meals <180 mg/dL all other times of the day Blood specimen (specimen) 03/27/2020 7:52 AM EST 03/27/2020 7:52 AM EST Davian Carolina MD POINT OF CARE TEST ORDERABLES Performing Organization Address [facility] Phone Number [facility] [place] [address] * POCT Glucose (03/27/2020 4:12 AM EST) Glucose, POC 74 65 - 199 mg/dL [facility] Comment: Supplemental ranges: <140 mg/dL before meals <180 mg/dL all other times of the day Blood specimen (specimen) 03/27/2020 4:12 AM EST 03/27/2020 4:12 AM EST Davian Carolina MD POINT OF CARE TEST ORDERABLES Performing Organization Address [facility] Co de Phone Number [facility] [place] [address] * Amylase Level Body Fluid KHRIS Drain (03/27/2020 3:28 AM EST) Amylase, Fluid 327 unit/L [facility] Comment: No reference range is available for the specimen type submitted. ??The performance of this assay for the submitted type has not been validated and results should be interpreted accordingly and with regard to the patient's clinical status. Amylase BF Type KHRIS Drain [facility] KHRIS Drain 03/27/2020 3:28 AM EST 03/27/2020 5:32 AM EST Narrative Resulting Agency Comment Spec In Lab Davian Carolina MD BODY FLUIDS AND ST OOLS ORDERABLES [facility] [place] [address] * Differential, Automated (03/27/2020 3:20 AM EST) Neutrophil % 66.9 % [facility] Neutrophil Absolute 5.08 1.70 - 6.10 x10(3)/[facility] LABORATORY Lymph % 18.2 % [facility] Lymphocytes Abs 1.4 0.9 - 3.2 x10(3)/[facility] LABORATORY Monocyte % 9.5 % [facility] Monocyte Abs 0.7 0.3 - 0.9 x10(3)/[facility] LABORATORY Eos % 4.6 % [facility] Eosinophils Abs 0.4 0.0 - 0.4 x10(3)/[facility] LABORATORY Basophil % 0.5 % [facility] Baso Absolute 0.0 0.0 - 0.1 x10(3)/[facility] LABORATORY Immature Gran % 0.30 % [facility] Comment: Immature granulocytes(IG's)percentage and absolute count will include metamyelocytes, myelocytes, and promyelocytes. Blood smears from CBCs yielding IG's will be scanned manually for concordance. If this scan disagrees with the automated IG or if promyelocytes are noted, a manual differential will be performed. Immature Gran Absolute 0.02 0.00 - 0.04 x10(3)/[facility] LABORATORY Blood specimen (specimen) 03/27/2020 3:20 AM EST 03/27/2020 3:35 AM EST Narrative Resulting Agency Comment Spec In Lab Anjelica Jordan APRN HEMATOLOGY ORDER MAGAN [facility] [place] [address] * (ABNORMAL) Hemogram (03/27/2020 3:20 AM EST) White Blood Cell 7.6 4.0 - 9.5 x10(3)/mc L [facility] Red Blood Cell 3.82(L) 4.00 - 5.21 x10(6)/mc L [facility] Hemoglobin 11.7 11.7 - 15.5 gm/dL [facility] Hematocrit 35.5(L) 35.7 - 45.8 % [facility] Mean Cell Volume 92.9 82.6 - 94.4 fL [facility] Mean Cell Hemoglobin 30.6 27.1 - 32.0 pg [facility] Mean Cell Hemoglobin Concentration 33.0 31.7 - 35.0 gm/dL [facility] Platelet 198 145 - 357 x10(3)/mc L [facility] RDW Standard Deviation 42.6 37.0 - 46.0 fL [facility] RDW coefficient of variation 12.5 11.5 - 14.1 % [facility] Mean Platelet Volume 10.1 7.6 - 12.9 fL [facility] NRBC% auto 0.0 % [facility] NRBC Absolute 0.000 0.000 - 0.000 x10(3)/ L [facility] Blood specimen (specimen) 03/27/2020 3:20 AM EST 03/27/2020 3:35 AM EST Narrative Resulting Agency Comment Spec In Lab Anjelica Jordan APRN HEMATOLOGY ORDER MAGAN [facility] [place] [address] * Phosphorus (03/27/2020 3:20 AM EST) Phosphorus 3.1 2.5 - 4.5 mg/dL [facility] Blood specimen (specimen) 03/27/2020 3:20 AM EST 03/27/2020 3:35 AM EST Narrative Resulting Agency Comment Spec In Lab Anjelica Jordan MANAGER ACUTE CHEMISTRY ORDERA BLES Performing Organization Address [facility] Co de Phone Number [facility] [place] [address] * Magnesium (03/27/2020 3:20 AM EST) Pathologist [facility] Magnesium 0.87 0.69 - 1.07 mmol/L [facility] Blood specimen (specimen) 03/27/2020 3:20 AM EST 03/27/2020 3:35 AM EST Narrative Resulting Agency Comment Spec In Lab Anjelica Jordan MANAGER ACUTE CHEMISTRY ORDERA BLES Performing Organization Address [facility] de Phone Number [facility] [place] [address] * (ABNORMAL) Comprehensive metabolic panel (non-fasting) (03/27/2020 3:20 AM EST) [facility] Glucose 73 65 - 199 mg/dL [facility] Comment:Diabetes: >=200 mg/d L plus symptoms Blood Urea Nitrogen 12 8 - 18 mg/dL [facility] Comment:result rechecked-bm Creatinine 0.49(L) 0.70 - 1.20 mg/dL [facility] Sodium 139 135 - 145 mmol/L [facility] Potassium 3.8 3.5 - 5.0 mmol/L [facility] Comment: Please note: ??Patients with WBC >100,000 may have falsely elevated Potassium levels. ??For accurate Potassium quantification in these patients send serum separator tube (gold top) for subsequent determinations. ??Contact the Clinical Chemistry Laboratory if there are any questions. Chloride 101 98 - 107 mmol/L [facility] Carbon Dioxide 27 22 - 31 mmol/L [facility] Anion Gap 11 5 - 15 mmol/L [facility] Calcium 8.5 8.5 - 10.5 mg/dL [facility] Protein, Total 5.4(L) 6.1 - 8.0 gm/dL [facility] Albumin 3.2 3.2 - 5.2 gm/dL [facility] Aspartate Aminotransferase 77(H) 0 - 30 unit/L [facility] Alanine Aminotransferase 160(H) 0 - 30 unit/L [facility] Alkaline Phosphatase 58 35 - 105 unit/L [facility] Bilirubin, Total 0.4 0.2 - 1.3 mg/dL [facility] Est Glomerular Filtration Rate 97 >=60 mL/min/1. 73 m?? [facility] Comment: This patient? s [...] Agency Comment Spec In Lab Anjelica Jordan MANAGER ACUTE CHEMISTRY ORDERA BLES [facility] [place] [address] * (ABNORMAL) Amylase (03/27/2020 3:20 AM EST) Amylase 25(L) 28 - 100 unit/L [facility] Blood specimen (specimen) 03/27/2020 3:20 AM EST 03/27/2020 3:35 AM EST Narrative Resulting Agency Comment Spec In Lab Anjelica Jordan APRN CHEMISTRY ORDERA BLES Performing Organization Address [facility] de Phone Number [facility] [place] [address] * POCT Glucose (03/27/2020 3:19 AM EST) Glucose, POC 73 65 - 199 mg/dL [facility] Comment: Supplemental ranges: <140 mg/dL before meals <180 mg/dL all other times of the day Blood specimen (specimen) 03/27/2020 3:19 AM EST 03/27/2020 3:19 AM EST Davian Carolina MD POINT OF CARE TEST ORDERABLES Performing Organization Address [facility] Phone Number [facility] [place] [address] * POCT Glucose (03/27/2020 12:03 AM EST) Glucose, POC 93 65 - 199 mg/dL [facility] Comment: Supplemental ranges: <140 mg/dL before meals <180 mg/dL all other times of the day Blood specimen (specimen) 03/27/2020 12:03 AM EST 03/27/2020 12:03 AM EST Davian Carolina MD POINT OF CARE TEST ORDERABLES Performing Organization Address [facility] de Phone Number [facility] [place] [address] * POCT Glucose (03/26/2020 9:10 PM EST) Glucose, POC 96 65 - 199 mg/dL [facility] Comment: Supplemental ranges: <140 mg/dL before meals <180 mg/dL all other times of the day Blood specimen (specimen) 03/26/2020 9:10 PM EST 03/26/2020 9:10 PM EST Davian Carolina MD POINT OF CARE TEST ORDERABLES Performing Organization Address [facility] Co de Phone Number [facility] [place] [address] * POCT Glucose (03/26/2020 7:52 PM EST) Glucose, POC 74 65 - 199 mg/dL [facility] Comment: Supplemental ranges: <140 mg/dL before meals <180 mg/dL all other times of the day Blood specimen (specimen) 03/26/2020 7:52 PM EST 03/26/2020 7:52 PM EST Davian Carolina MD POINT OF CARE TEST ORDERABLES Performing Organization Address [facility] de Phone Number [facility] [place] [address] * POCT Glucose (03/26/2020 3:59 PM EST) Glucose, POC 87 65 - 199 mg/dL [facility] Comment: Supplemental ranges: <140 mg/dL before meals <180 mg/dL all other times of the day Blood specimen (specimen) 03/26/2020 3:59 PM EST 03/26/2020 3:59 PM EST Davian Carolina MD POINT OF CARE TEST ORDERABLES Performing Organization Address [facility] Co de Phone Number [facility] [place] [address] * POCT Glucose (03/26/2020 11:39 AM EST) Glucose, POC 87 65 - 199 mg/dL [facility] Comment: Supplemental ranges: <140 mg/dL before meals <180 mg/dL all other times of the day Blood specimen (specimen) 03/26/2020 11:39 AM EST 03/26/2020 11:39 AM EST Davian Carolina MD POINT OF CARE TEST ORDERABLES Performing Organization Address City/[facility]/ZIP Co de Phone Number [facility] [place] [address] * CT Angiogram Abdomen w Contrast (03/26/2020 [...] Glucose, POC 109 65 - 199 mg/dL [facility] Comment: Supplemental ranges: <140 mg/dL before meals <180 mg/dL all other times of the day Blood specimen (specimen) 03/26/2020 7:32 AM EST 03/26/2020 7:32 AM EST Davian Carolina MD POINT OF CARE TEST ORDERABLES Performing Organization Address [facility]/ZIP Co de Phone Number [facility] [place] [address] * POCT Glucose (03/26/2020 3:16 AM EST) Glucose, POC 134 65 - 199 mg/dL [facility] Comment: Supplemental ranges: <140 mg/dL before meals <180 mg/dL all other times of the day Blood specimen (specimen) 03/26/2020 3:16 AM EST 03/26/2020 3:16 AM EST Davian Caroilna MD POINT OF CARE TEST ORDERABLES Performing Organization Address City/[facility]/ZIP Co [place] [address] * (ABNORMAL) Differential, Automated (03/26/2020 1:45 AM EST) Pathologist [facility] Neutrophil % 79.2 % [facility] Neutrophil Absolute 7.42(H) 1.70 - 6.10 x10(3)/ L [facility] Lymph % 11.3 % [facility] Lymphocytes Abs 1.1 0.9 - 3.2 x10(3)/[facility] Monocyte % 8.3 % [facility] Monocyte Abs 0.8 0.3 - 0.9 x10(3)/[facility] Eos % 0.6 % [facility] Eosinophils Abs 0.1 0.0 - 0.4 x10(3)/[facility] Basophil % 0.3 % [facility] Baso Absolute 0.0 0.0 - 0.1 x10(3)/[facility] Immature Gran % 0.30 % [facility] Comment: Immature granulocytes(IG's)percentage and absolute count will include metamyelocytes, myelocytes, and promyelocytes. Blood smears from CBCs yielding IG's will be scanned manually for concordance. If this scan disagrees with the automated IG or if promyelocytes are noted, a manual differential will be performed. Immature Gran Absolute 0.03 0.00 - 0.04 x10(3)/ L [facility] Blood specimen (specimen) 03/26/2020 1:45 AM EST 03/26/2020 1:56 AM EST Narrative Resulting Agency Comment Spec In Lab Anjelica Jordan APRN HEMATOLOGY ORDER MAGAN [facility] [place] [address] * (ABNORMAL) Hemogram (03/26/2020 1:45 AM EST) [facility] White Blood Cell 9.4 4.0 - 9.5 x10(3)/[facility] Red Blood Cell 3.74(L) 4.00 - 5.21 x10(6)/ L [facility] Hemoglobin 11.4(L) 11.7 - 15.5 gm/dL [facility] Hematocrit 34.3(L) 35.7 - 45.8 % [facility] Mean Cell Volume 91.7 82.6 - 94.4 fL [facility] Mean Cell Hemoglobin 30.5 27.1 - 32.0 pg [facility] Mean Cell Hemoglobin Concentration 33.2 31.7 - 35.0 gm/dL [facility] Platelet 168 145 - 357 x10(3)/[facility] RDW Standard Deviation 42.4 37.0 - 46.0 [facility] RDW coefficient of variation 12.6 11.5 - 14.1 % [facility] Mean Platelet Volume 10.2 7.6 - 12.9 fL [facility] NRBC% auto 0.0 % [facility] NRBC Absolute 0.000 0.000 - 0.000 x10(3)/[facility] Blood specimen (specimen) 03/26/2020 1:45 AM EST 03/26/2020 1:56 AM EST Narrative Resulting Agency Comment Spec In Lab Anjelica Jordan APRN HEMATOLOGY ORDER MAGAN [facility] [place] [address] * (ABNORMAL) Phosphorus (03/26/2020 1:45 AM EST) Phosphorus 2.3(L) 2.5 - 4.5 mg/dL [facility] Blood specimen (specimen) 03/26/2020 1:45 AM EST 03/26/2020 1:56 AM EST Narrative Resulting Agency Comment Spec In Lab Anjelica Jordan MANAGER ACUTE CHEMISTRY ORDERA BLES Performing Organization Address City/[facility]/ZIP Co de Phone Number [facility] [place] [address] * Magnesium (03/26/2020 1:45 AM EST) Magnesium 0.82 0.69 - 1.07 mmol/L [facility] Blood specimen (specimen) 03/26/2020 1:45 AM EST 03/26/2020 1:56 AM EST Narrative Resulting Agency Comment Spec In Lab Anjelica Jordan MANAGER ACUTE CHEMISTRY ORDERA BLES Performing Organization Address [facility] Co de Phone Number [facility] [place] [address] * (ABNORMAL) Comprehensive metabolic panel (non-fasting) (03/26/2020 1:45 AM EST) Pathologist [facility] Glucose 131 65 - 199 mg/dL [facility] Comment:Diabetes: >=200 mg/d L plus symptoms Blood Urea Nitrogen 6(L) 8 - 18 mg/dL [facility] Creatinine 0.54(L) 0.70 - 1.20 mg/dL [facility] Sodium 139 135 - 145 mmol/L [facility] Potassium 3.4(L) 3.5 - 5.0 mmol/L [facility] Comment: Please note: ??Patients with WBC >100,000 may have falsely elevated Potassium levels. ??For accurate Potassium quantification in these patients send serum separator tube (gold top) for subsequent determinations. ??Contact the Clinical Chemistry Laboratory if there are any questions. Chloride 98 98 - 107 mmol/L [facility] Carbon Dioxide 29 22 - 31 mmol/L [facility] Anion Gap 12 5 - 15 mmol/L [facility] Calcium 8.6 8.5 - 10.5 mg/dL [facility] Protein, Total 5.5(L) 6.1 - 8.0 gm/dL [facility] Albumin 3.3 3.2 - 5.2 gm/dL [facility] Aspartate Aminotransferase 166(H) 0 - 30 unit/L [facility] Alanine Aminotransferase 240(H) 0 - 30 unit/L [facility] Alkaline Phosphatase 60 35 - 105 unit/L [facility] Bilirubin, Total 0.6 0.2 - 1.3 mg/dL [facility] Est Glomerular Filtration Rate 94 >=60 mL/min/1. 73 m?? [facility] Comment: This patient? s [...] Agency Comment Spec In Lab Anjelica Jordan MANAGER ACUTE CHEMISTRY ORDERA BLES Performing Organization Address [facility] Co de Phone Number [facility] [place] [address] * (ABNORMAL) Amylase (03/26/2020 1:45 AM EST) Amylase 22(L) 28 - 100 unit/L [facility] Blood specimen (specimen) 03/26/2020 1:45 AM EST 03/26/2020 1:56 AM EST Narrative Resulting Agency Comment Spec In Lab Anjelica Jordan MANAGER ACUTE CHEMISTRY ORDERA BLES Performing Organization Address City/[facility]/ZIP Co de Phone Number [facility] [place] [address] * Amylase Level Body Fluid KHRIS Drain (03/26/2020 1:36 AM EST) Amylase, Fluid 15 unit/L [facility] Comment: No reference range is available for the specimen type submitted. ??The performance of this assay for the submitted type has not been validated and results should be interpreted accordingly and with regard to the patient's clinical status. Amylase BF Type KHRIS Drain [facility] KHRIS Drain 03/26/2020 1:36 AM EST 03/26/2020 1:58 AM EST Narrative Resulting Agency Comment Spec In Lab Davian Carolina MD BODY FLUIDS AND ST OOLS ORDERABLES Performing Organization Address [facility]/ZIP Co de Phone Number [facility] [place] [address] * POCT Glucose (03/25/2020 11:11 PM EST) Glucose, POC 128 65 - 199 mg/dL [facility] Comment: Supplemental ranges: <140 mg/dL before meals <180 mg/dL all other times of the day Blood specimen (specimen) 03/25/2020 11:11 PM EST 03/25/2020 11:11 PM EST Davian Carolina MD POINT OF CARE TEST ORDERABLES Performing Organization Address City/[facility]/ZIP Co de Phone Number [facility] [place] [address] * POCT Glucose (03/25/2020 7:53 PM EST) Glucose, POC 142 65 - 199 mg/dL [facility] Comment: Supplemental ranges: <140 mg/dL before meals <180 mg/dL all other times of the day Blood specimen (specimen) 03/25/2020 7:53 PM EST 03/25/2020 7:53 PM EST Davian Carolina MD POINT OF CARE TEST ORDERABLES [facility] [place] [address] * POCT Glucose (03/25/2020 4:23 PM EST) Glucose, POC 149 65 - 199 mg/dL [facility] Comment: Supplemental ranges: <140 mg/dL before meals <180 mg/dL all other times of the day Blood specimen (specimen) 03/25/2020 4:23 PM EST 03/25/2020 4:23 PM EST Davian Carolina MD POINT OF CARE TEST ORDERABLES [facility] [place] [address] * POCT Glucose (03/25/2020 12:36 PM EST) Glucose, POC 132 65 - 199 mg/dL [facility] Comment: Supplemental ranges: <140 mg/dL before meals <180 mg/dL all other times of the day Blood specimen (specimen) 03/25/2020 12:36 PM EST 03/25/2020 12:36 PM EST Davian Carolina MD POINT OF CARE TEST ORDERABLES [facility] [place] [address] * (ABNORMAL) Urinalysis Microscopic Exam (03/25/2020 10:21 AM EST) RBC, Urine 5(H) 0 - 4 /HPF [facility] WBC, Urine 3 0 - 5 /HPF [facility] Squamous Epithelial Cells Raw Data, Urine 1 <=4 /HPF [facility] Hyaline Casts, Urine 8(H) 0 - 2 /LPF [facility] Urine specimen obtained via indwelling urinary catheter (specimen) 03/25/2020 10:21 AM EST 03/25/2020 11:31 AM EST Narrative Resulting Agency Comment Spec In Lab Anjelica Jordan APRN URINE ORDERABLES Performing Organization Address City/[facility]/ZIP Co de Phone Number [facility] [place] [address] * (ABNORMAL) Urinalysis with reflex Culture (03/25/2020 10:21 AM EST) Glucose, Urine Dipstick Negative Negative mg/dL [facility] Protein, Urine Dipstick Negative Negative mg/dL [facility] Bilirubin, Urine Dipstick Negative Negative mg/dL [facility] Comment: Clinical correlation required for positive Urine Bilirubin results as false positive may occur with some drugs and drug related products. If a false positive is suspected a serum total bilirubin should be considered if clinically indicated. Urobilinogen, Urine Dipstick Normal Normal mg/dL [facility] pH, Urn (dipstick) 5.5 5.0 - 8.0 [facility] Blood, Urine Dipstick Negative Negative mg/dL [facility] Ketone, Urine Dipstick >=80(Critica l) Negative mg/dL [facility] Comment: Urinalysis result NOT critical without a combination of Glucose greater than or equal to 500 mg/dL AND Ketones greater than or equal to 80 mg/dL Nitrite, Urine Dipstick Negative Negative [facility] Leukocytes, Urine Dipstick Trace(A) Negative [facility] Appearance, Urine Dipstick Clear Clear [facility] Specific [place] Urine Automated 1.016 1.006 - 1.030 [facility] Color, Urine Dipstick Yellow Yellow [facility] Reflex to Culture No [facility] Urine specimen obtained via indwelling urinary catheter (specimen) 03/25/2020 10:21 AM EST 03/25/2020 11:31 AM EST Narrative Resulting Agency Comment Spec In Lab Anjelica Jordan APRN URINE ORDERABLES Performing Organization Address City/[facility]/ZIP Co de Phone Number [facility] [place] [address] * POCT Glucose (03/25/2020 7:50 AM EST) Glucose, POC 114 65 - 199 mg/dL [facility] Comment: Supplemental ranges: <140 mg/dL before meals <180 mg/dL all other times of the day Blood specimen (specimen) 03/25/2020 7:50 AM EST 03/25/2020 7:50 AM EST Davian Carolina MD POINT OF CARE TEST ORDERABLES Performing Organization Address [facility] Co de Phone Number [facility] [place] [address] * POCT Glucose (03/25/2020 4:06 AM EST) Glucose, POC 108 65 - 199 mg/dL [facility] Comment: Supplemental ranges: <140 mg/dL before meals <180 mg/dL all other times of the day Blood specimen (specimen) 03/25/2020 4:06 AM EST 03/25/2020 4:06 AM EST Davian Carolina MD POINT OF CARE TEST ORDERABLES Performing Organization Address [facility] de Phone Number [facility] [place] [address] * Amylase Level Body Fluid KHRIS Drain (03/25/2020 3:53 AM EST) Amylase, Fluid 22 unit/L [facility] Comment: No reference range is available for the specimen type submitted. ??The performance of this assay for the submitted type has not been validated and results should be interpreted accordingly and with regard to the patient's clinical status. Amylase BF Type KHRIS Drain [facility] KHRIS Drain 03/25/2020 3:53 AM EST 03/25/2020 4:14 AM EST Narrative Resulting Agency Comment Spec In Lab Davian Carolina MD BODY FLUIDS AND ST OOLS ORDERABLES Performing Organization Address City/[facility]/ZIP Co de Phone Number [facility] [place] [address] * (ABNORMAL) Differential, Automated (03/25/2020 1:55 AM EST) Neutrophil % 82.1 % [facility] Neutrophil Absolute 11.43(H) 1.70 - 6.10 x10(3)/ L [facility] Lymph % 10.1 % [facility] Lymphocytes Abs 1.4 0.9 - 3.2 x10(3)/ L [facility] Monocyte % 6.9 % [facility] Monocyte Abs 1.0(H) 0.3 - 0.9 x10(3)/ L [facility] Eos % 0.3 % [facility] Eosinophils Abs 0.0 0.0 - 0.4 x10(3)/[facility] Basophil % 0.2 % [facility] Baso Absolute 0.0 0.0 - 0.1 x10(3)/ L [facility] Immature Gran % 0.40 % [facility] Comment: Immature granulocytes(IG's)percentage and absolute count will include metamyelocytes, myelocytes, and promyelocytes. Blood smears from CBCs yielding IG's will be scanned manually for concordance. If this scan disagrees with the automated IG or if promyelocytes are noted, a manual differential will be performed. Immature Gran Absolute 0.06(H) 0.00 - 0.04 x10(3)/ L [facility] Blood specimen (specimen) 03/25/2020 1:55 AM EST 03/25/2020 2:04 AM EST Narrative Resulting Agency Comment Spec In Lab Anjelica Jordan APRN HEMATOLOGY ORDER MAGAN Performing Organization Address City/[facility]/ZIP Co de Phone Number [facility] [place] [address] * (ABNORMAL) Hemogram (03/25/2020 1:55 AM EST) White Blood Cell 13.9(H) 4.0 - 9.5 x10(3)/mc L [facility] Red Blood Cell 3.65(L) 4.00 - 5.21 x10(6)/mc L [facility] Hemoglobin 11.2(L) 11.7 - 15.5 gm/dL [facility] Hematocrit 33.5(L) 35.7 - 45.8 % [facility] Mean Cell Volume 91.8 82.6 - 94.4 fL [facility] Mean Cell Hemoglobin 30.7 27.1 - 32.0 pg [facility] Mean Cell Hemoglobin Concentration 33.4 31.7 - 35.0 gm/dL [facility] Platelet 203 145 - 357 x10(3)/[facility] RDW Standard Deviation 42.5 37.0 - 46.0 fL [facility] RDW coefficient of variation 12.7 11.5 - 14.1 % [facility] Mean Platelet Volume 9.9 7.6 - 12.9 fL [facility] NRBC% auto 0.0 % [facility] NRBC Absolute 0.000 0.000 - 0.000 x10(3)/[facility] Blood specimen (specimen) 03/25/2020 1:55 AM EST 03/25/2020 2:04 AM EST Narrative Resulting Agency Comment Spec In Lab Anjelica Jordan APRN HEMATOLOGY ORDER MAGAN [facility] [place] [address] * (ABNORMAL) Phosphorus (03/25/2020 1:55 AM EST) Phosphorus 1.6(L) 2.5 - 4.5 mg/dL [facility] Blood specimen (specimen) 03/25/2020 1:55 AM EST 03/25/2020 2:04 AM EST Narrative Resulting Agency Comment Spec In Lab Anjelica Lissa Nikki MANAGER ACUTE CHEMISTRY ORDERA BLES Performing Organization Address City/[facility]/ZIP Co de Phone Number [facility] [place] [address] * Magnesium (03/25/2020 1:55 AM EST) Magnesium 0.78 0.69 - 1.07 mmol/L [facility] Blood specimen (specimen) 03/25/2020 1:55 AM EST 03/25/2020 2:04 AM EST Narrative Resulting Agency Comment Spec In Lab Anjelica Jordan MANAGER ACUTE CHEMISTRY ORDERA BLES Performing Organization Address [facility] Co de Phone Number [facility] [place] [address] * (ABNORMAL) Comprehensive metabolic panel (non-fasting) (03/25/2020 1:55 AM EST) Glucose 116 65 - 199 mg/dL [facility] Comment:Diabetes: >=200 mg/d L plus symptoms Blood Urea Nitrogen 10 8 - 18 mg/dL [facility] Creatinine 0.48(L) 0.70 - 1.20 mg/dL [facility] Sodium 138 135 - 145 mmol/L [facility] [facility] Potassium 3.9 3.5 - 5.0 mmol/L [facility] Comment: Please note: ??Patients with WBC >100,000 may have falsely elevated Potassium levels. ??For accurate Potassium quantification in these patients send serum separator tube (gold top) for subsequent determinations. ??Contact the Clinical Chemistry Laboratory if there are any questions. Chloride 101 98 - 107 mmol/L [facility] Carbon Dioxide 29 22 - 31 mmol/L [facility] Anion Gap 8 5 - 15 mmol/L [facility] Calcium 8.2(L) 8.5 - 10.5 mg/dL [facility] Protein, Total 5.2(L) 6.1 - 8.0 gm/dL [facility] Albumin 3.1(L) 3.2 - 5.2 gm/dL [facility] Aspartate Aminotransferase 149(H) 0 - 30 unit/L [facility] Alanine Aminotransferase 170(H) 0 - 30 unit/L [facility] Alkaline Phosphatase 58 35 - 105 unit/L [facility] Bilirubin, Total 0.6 0.2 - 1.3 mg/dL [facility] Est Glomerular Filtration Rate 97 >=60 mL/min/1. 73 m?? [facility] Comment: This patient? s [...] Agency Comment Spec In Lab Anjelica Jordan MANAGER ACUTE CHEMISTRY ORDERA BLES Performing Organization Address City/[facility]/ZIP Co de Phone Number [facility] [place] [address] * Amylase (03/25/2020 1:55 AM EST) Amylase 31 28 - 100 unit/L [facility] Blood specimen (specimen) 03/25/2020 1:55 AM EST 03/25/2020 2:04 AM EST Narrative Resulting Agency Comment Spec In Lab Anjelica Jordan MANAGER ACUTE CHEMISTRY ORDERA BLES Performing Organization Address City/[facility]/ZIP Co de Phone Number [facility] [place] [address] * POCT Glucose (03/24/2020 11:38 PM EST) Glucose, POC 117 65 - 199 mg/dL [facility] Comment: Supplemental ranges: <140 mg/dL before meals <180 mg/dL all other times of the day Blood specimen (specimen) 03/24/2020 11:38 PM EST 03/24/2020 11:38 PM EST Davian Carolina MD POINT OF CARE TEST ORDERABLES [facility] [place] [address] * POCT Glucose (03/24/2020 8:17 PM EST) Glucose, POC 109 65 - 199 mg/dL [facility] Comment: Supplemental ranges: <140 mg/dL before meals <180 mg/dL all other times of the day Blood specimen (specimen) 03/24/2020 8:17 PM EST 03/24/2020 8:17 PM EST Davian Carolina MD POINT OF CARE TEST ORDERABLES [facility] [place] [address] * Potassium (03/24/2020 5:40 PM EST) Potassium 4.1 3.5 - 5.0 mmol/L [facility] [...] Comment Spec In Lab Anjelica E Nikki MANAGER ACUTE CHEMISTRY ORDERA BLES Performing Organization Address [facility] Co de Phone Number [facility] [place] [address] * (ABNORMAL) Aspartate Aminotransferase (03/24/2020 5:40 PM EST) Aspartate Aminotransferase 137(H) 0 - 30 unit/L [facility] Blood specimen (specimen) 03/24/2020 5:40 PM EST 03/24/2020 6:02 PM EST Narrative Resulting Agency Comment Spec In Lab Anjelica Jordan MANAGER ACUTE CHEMISTRY ORDERA BLES Performing Organization Address [facility] Co de Phone Number [facility] [place] [address] * POCT Glucose (03/24/2020 5:13 PM EST) Glucose, POC 112 65 - 199 mg/dL [facility] Comment: Supplemental ranges: <140 mg/dL before meals <180 mg/dL all other times of the day Blood specimen (specimen) 03/24/2020 5:13 PM EST 03/24/2020 5:13 PM EST Davian Carolina MD POINT OF CARE TEST ORDERABLES Performing Organization Address [facility] Co de Phone Number [facility] [place] [address] * Place PICC Line: Contact Vascular Access Page [phone] Extremity to exclude: DO NOT use RIGHT [...] to the planned procedure. Hand Hygiene: The health information technician did perform hand hygiene prior to line insertion. Catheter type: PICC Lot number: [id number] Procedure Technique: Skin was prepped with chlorhexidine. [...] Glucose, POC 113 65 - 199 mg/dL [facility] Comment: Supplemental ranges: <140 mg/dL before meals <180 mg/dL all other times of the day Blood specimen (specimen) 03/24/2020 1:05 PM EST 03/24/2020 1:05 PM EST Davian Carolina MD POINT OF CARE TEST ORDERABLES Performing Organization Address City/[facility]/ZIP Co de Phone Number [facility] [place] [address] * POCT Glucose (03/24/2020 9:28 AM EST) Glucose, POC 155 65 - 199 mg/dL [facility] Comment: Supplemental ranges: <140 mg/dL before meals <180 mg/dL all other times of the day Blood specimen (specimen) 03/24/2020 9:28 AM EST 03/24/2020 9:28 AM EST Davian Carolina MD POINT OF CARE TEST ORDERABLES [facility] [place] [address] * (ABNORMAL) Differential, Automated (03/24/2020 8:28 AM EST) Neutrophil % 84.9 % [facility] Neutrophil Absolute 13.84(H) 1.70 - 6.10 x10(3)/mc L [facility] Lymph % 6.7 % [facility] Lymphocytes Abs 1.1 0.9 - 3.2 x10(3)/mc L [facility] Monocyte % 7.9 % [facility] Monocyte Abs 1.3(H) 0.3 - 0.9 x10(3)/mc L [facility] Eos % 0.0 % [facility] Eosinophils Abs 0.0 0.0 - 0.4 x10(3)/[facility] Basophil % 0.1 % [facility] Baso Absolute 0.0 0.0 - 0.1 x10(3)/ L [facility] Immature Gran % 0.40 % [facility] Comment: Immature granulocytes(IG's)percentage and absolute count will include metamyelocytes, myelocytes, and promyelocytes. Blood smears from CBCs yielding IG's will be scanned manually for concordance. If this scan disagrees with the automated IG or if promyelocytes are noted, a manual differential will be performed. Immature Gran Absolute 0.07(H) 0.00 - 0.04 x10(3)/[facility] Blood specimen (specimen) 03/24/2020 8:28 AM EST 03/24/2020 8:55 AM EST Narrative Resulting Agency Comment Spec In Lab Anjelica Jordan APRN HEMATOLOGY ORDER MAGAN [facility] [place] [address] * (ABNORMAL) Hemogram (03/24/2020 8:28 AM EST) White Blood Cell 16.3(H) 4.0 - 9.5 x10(3)/ L [facility] Red Blood Cell 3.90(L) 4.00 - 5.21 x10(6)/mc L [facility] Hemoglobin 11.7 11.7 - 15.5 gm/dL [facility] Hematocrit 37.0 35.7 - 45.8 % [facility] Mean Cell Volume 94.9(H) 82.6 - 94.4 fL [facility] Mean Cell Hemoglobin 30.0 27.1 - 32.0 pg [facility] Mean Cell Hemoglobin Concentration 31.6(L) 31.7 - 35.0 gm/dL [facility] Platelet 214 145 - 357 x10(3)/mc L [facility] RDW Standard Deviation 45.4 37.0 - 46.0 [facility] RDW coefficient of variation 13.1 11.5 - 14.1 % [facility] Mean Platelet Volume 11.0 7.6 - 12.9 [facility] NRBC% auto 0.0 % [facility] NRBC Absolute 0.000 0.000 - 0.000 x10(3)/mc L [facility] Blood specimen (specimen) 03/24/2020 8:28 AM EST 03/24/2020 8:55 AM EST Narrative Resulting Agency Comment Spec In Lab Anjelica Jordan APRN HEMATOLOGY ORDER MAGAN Performing Organization Address [facility]/ZIP Co de Phone Number [facility] [place] [address] * (ABNORMAL) Phosphorus (03/24/2020 8:28 AM EST) Phosphorus 4.6(H) 2.5 - 4.5 mg/dL [facility] Blood specimen (specimen) 03/24/2020 8:28 AM EST 03/24/2020 8:55 AM EST Narrative Resulting Agency Comment Spec In Lab Anjelica Jordan APRN CHEMISTRY ORDERA BLES [facility] [place] [address] * Magnesium (03/24/2020 8:28 AM EST) Magnesium 1.07 0.69 - 1.07 mmol/L [facility] Comment:result rechecked-mary lou Blood specimen (specimen) 03/24/2020 8:28 AM EST 03/24/2020 8:55 AM EST Narrative Resulting Agency Comment Spec In Lab Anjelica E Nikki MANAGER ACUTE CHEMISTRY ORDERA BLES Performing Organization Address [facility]/ZIP Co de Phone Number [facility] [place] [address] * (ABNORMAL) Amylase (03/24/2020 8:28 AM EST) Amylase 21(L) 28 - 100 unit/L [facility] Blood specimen (specimen) 03/24/2020 8:28 AM EST 03/24/2020 8:55 AM EST Narrative Resulting Agency Comment Spec In Lab Anjelica Jordan MANAGER ACUTE CHEMISTRY ORDERA BLES Performing Organization Address [facility] Co de Phone Number [facility] [place] [address] * (ABNORMAL) CMP w/fasting Glucose (03/24/2020 8:28 AM EST) Glucose Fasting 138(H) 65 - 99 mg/dL [facility] Comment: ?Fasting* Glucose Interpretive [...] of Diabetes Mellitus, Position Statement from the [place] [employer]. ??Diabetes Care, Volume 33, Supplement 1, Apr 2009 Blood Urea Nitrogen 16 8 - 18 mg/dL [facility] Creatinine 0.77 0.70 - 1.20 mg/dL [facility] Sodium 140 135 - 145 mmol/L [facility] Potassium Not Perf 3.5 - 5.0 [facility] Comment: Unable to quantitate [...] questions. Chloride 105 98 - 107 mmol/L [facility] Carbon Dioxide 26 22 - 31 mmol/L [facility] Anion Gap 9 5 - 15 mmol/L [facility] Calcium 8.2(L) 8.5 - 10.5 mg/dL [facility] Protein, Total 5.1(L) 6.1 - 8.0 gm/dL [facility] Albumin 3.1(L) 3.2 - 5.2 gm/dL [facility] Aspartate Aminotransferase Not Perf 0 - 30 [facility] Comment: Unable to quantitate due to sample hemolysis. ??Sample redraw suggested. Called by: MARY LOU, Read back by: Sanjuanita Mercado, Date/Time:03/24/20 09:48. Alanine Aminotransferase 168(H) 0 - 30 unit/L [facility] Alkaline Phosphatase 55 35 - 105 unit/L [facility] Bilirubin, Total 0.4 0.2 - 1.3 mg/dL [facility] Est Glomerular Filtration Rate 77 >=60 mL/min/1. 73 m?? [facility] Comment: This patient? s [...] MD CHEMISTRY ORDERABL ES Performing Organization Address [facility] Phone Number [facility] [place] [address] * Amylase Level Body Fluid KHRIS Drain (03/24/2020 5:07 AM EST) Pathologist [facility] Amylase, Fluid 26 unit/L [facility] Comment: No reference range is available for the specimen type submitted. ??The performance of this assay for the submitted type has not been validated and results should be interpreted accordingly and with regard to the patient's clinical status. Amylase BF Type KHRIS Drain [facility] KHRIS Drain 03/24/2020 5:07 AM EST 03/24/2020 5:44 AM EST Narrative Resulting Agency Comment Spec In Lab Davian Carolina MD BODY FLUIDS AND ST OOLS ORDERABLES Performing Organization Address [facility] de Phone Number [facility] [place] [address] * Scan, Peripheral Blood (03/23/2020 6:30 PM EST) [facility] Plat estimate Normal [facility] RBC Morphology Normal [facility] Vacuolated Neut Present [facility] Platelet Clumps Present [facility] Blood specimen (specimen) 03/23/2020 6:30 PM EST 03/23/2020 6:35 PM EST Narrative Resulting Agency Comment Spec In Lab Raj Kang MD HEMATOLOGY ORDERABLE S Performing Organization Address [facility] de Phone Number [facility] [place] [address] * (ABNORMAL) Differential, Automated (03/23/2020 6:30 PM EST) Pathologist [facility] Neutrophil % 90.8 % [facility] Neutrophil Absolute 21.25(H) 1.70 - 6.10 x10(3)/[facility] Lymph % 2.9 % [facility] Lymphocytes Abs 0.7(L) 0.9 - 3.2 x10(3)/[facility] Monocyte % 5.6 % [facility] Monocyte Abs 1.3(H) 0.3 - 0.9 x10(3)/[facility] Eos % 0.0 % [facility] Eosinophils Abs 0.0 0.0 - 0.4 x10(3)/[facility] Basophil % 0.3 % [facility] Baso Absolute 0.1 0.0 - 0.1 x10(3)/[facility] Immature Gran % 0.40 % [facility] Comment: Immature granulocytes(IG's)percentage and absolute count will include metamyelocytes, myelocytes, and promyelocytes. Blood smears from CBCs yielding IG's will be scanned manually for concordance. If this scan disagrees with the automated IG or if promyelocytes are noted, a manual differential will be performed. Immature Gran Absolute 0.10(H) 0.00 - 0.04 x10(3)/[facility] Blood specimen (specimen) 03/23/2020 6:30 PM EST 03/23/2020 6:35 PM EST Narrative Resulting Agency Comment Spec In Lab Raj Kang MD HEMATOLOGY ORDERABLE S [facility] [place] [address] * (ABNORMAL) Hemogram (03/23/2020 6:30 PM EST) White Blood Cell 23.4(H) 4.0 - 9.5 x10(3)/[facility] Red Blood Cell 4.07 4.00 - 5.21 x10(6)/[facility] Hemoglobin 12.2 11.7 - 15.5 gm/dL [facility] Hematocrit 37.9 35.7 - 45.8 % [facility] Mean Cell Volume 93.1 82.6 - 94.4 fL [facility] Mean Cell Hemoglobin 30.0 27.1 - 32.0 pg [facility] Mean Cell Hemoglobin Concentration 32.2 31.7 - 35.0 gm/dL [facility] Platelet 275 145 - 357 x10(3)/mc L [facility] RDW Standard Deviation 43.7 37.0 - 46.0 fL [facility] RDW coefficient of variation 12.7 11.5 - 14.1 % [facility] Mean Platelet Volume 9.8 7.6 - 12.9 fL [facility] NRBC% auto 0.0 % [facility] NRBC Absolute 0.000 0.000 - 0.000 x10(3)/mc L [facility] Blood specimen (specimen) 03/23/2020 6:30 PM EST 03/23/2020 6:35 PM EST Narrative Resulting Agency Comment Spec In Lab Raj Kang MD HEMATOLOGY ORDERABLE S Performing Organization Address City/[facility]/ZIP Co de Phone Number [facility] [place] [address] * (ABNORMAL) Phosphorus (03/23/2020 6:30 PM EST) Phosphorus 5.1(H) 2.5 - 4.5 mg/dL [facility] Blood specimen (specimen) 03/23/2020 6:30 PM EST 03/23/2020 6:35 PM EST Narrative Resulting Agency Comment Spec In Lab Davian Carolina MD CHEMISTRY ORDERABL ES Performing Organization Address City/[facility] Co de Phone Number [facility] [place] [address] * Magnesium (03/23/2020 6:30 PM EST) Magnesium 0.69 0.69 - 1.07 mmol/L [facility] Blood specimen (specimen) 03/23/2020 6:30 PM EST 03/23/2020 6:35 PM EST Narrative Resulting Agency Comment Spec In Lab Davian Carolina MD CHEMISTRY ORDERABL ES [facility] [place] [address] * (ABNORMAL) Comprehensive metabolic panel (non-fasting) (03/23/2020 6:30 PM EST) Glucose 217(H) 65 - 199 mg/dL [facility] Comment:Diabetes: >=200 mg/d L plus symptoms Blood Urea Nitrogen 16 8 - 18 mg/dL [facility] Creatinine 0.88 0.70 - 1.20 mg/dL [facility] Sodium 141 135 - 145 mmol/L [facility] Potassium 4.4 3.5 - 5.0 mmol/L [facility] Comment: Please note: ??Patients with WBC >100,000 may have falsely elevated Potassium levels. ??For accurate Potassium quantification in these patients send serum separator tube (gold top) for subsequent determinations. ??Contact the Clinical Chemistry Laboratory if there are any questions. Chloride 106 98 - 107 mmol/L [facility] Carbon Dioxide 24 22 - 31 mmol/L [facility] Anion Gap 11 5 - 15 mmol/L [facility] Calcium 8.1(L) 8.5 - 10.5 mg/dL [facility] Protein, Total 5.2(L) 6.1 - 8.0 gm/dL [facility] Albumin 3.5 3.2 - 5.2 gm/dL [facility] Aspartate Aminotransferase 161(H) 0 - 30 unit/L [facility] Alanine Aminotransferase 178(H) 0 - 30 unit/L [facility] Alkaline Phosphatase 66 35 - 105 unit/L [facility] Bilirubin, Total 1.4(H) 0.2 - 1.3 mg/dL [facility] Est Glomerular Filtration Rate 65 >=60 mL/min/1. 73 m?? [facility] Comment: This patient? s [...] MD CHEMISTRY ORDERABL ES Performing Organization Address [facility]/ZIP Co de Phone Number [facility] [place] [address] * Anaerobic Culture (03/23/2020 1:46 PM EST) Anaerobic Culture No anaerobic organisms isolated [facility] Bile specimen (specimen) 03/23/2020 1:46 PM EST 03/23/2020 2:08 PM EST Comment:BILE CULTURE Narrative Resulting Agency Comment Spec In Lab Davian Carolina MD MICROBIOLOGY - GEN ERAL ORDERABLES Performing Organization Address [facility]/ZIP Co de Phone Number [facility] [place] [address] * Body Fluid Culture, Aerobic (03/23/2020 1:46 PM EST) Body Fluid Culture No growth [facility] Gram Stain Cytocentrifuge Gram Stain performed Neutrophils seen No microorganisms seen. [facility] Bile specimen (specimen) 03/23/2020 1:46 PM EST 03/23/2020 2:08 PM EST Comment:BILE CULTURE Narrative Resulting Agency Comment Spec In Lab Davian Carolina MD MICROBIOLOGY - GEN ERAL ORDERABLES Performing Organization Address [facility]/ZIP Co de Phone Number [facility] [place] [address] * Specimen to Pathology (03/23/2020 12:44 PM EST) AP Specimen 03/23/2020 12:4 4 PM EST 03/23/2020 12:44 PM EST Narrative [facility] - 03/23/2020 12:44 PM EST Specimen requisition ordered. ??Separate Pathology report to follow Davian Carolina MD PATHOLOGY/CYTOLOGY ORDERABLES Performing Organization Address [facility] Co de Phone Number [facility] [place] [address] * Specimen to Pathology (03/23/2020 12:39 PM EST) AP Specimen 03/23/2020 12:3 9 PM EST 03/23/2020 12:39 PM EST Narrative [facility] - 03/23/2020 12:39 PM EST Specimen requisition ordered. ??Separate Pathology report to follow Davian Carolina MD PATHOLOGY/CYTOLOGY ORDERABLES Performing Organization Address [facility] Co de Phone Number [facility] [place] [address] * Specimen to Pathology (03/23/2020 9:54 AM EST) AP Specimen 03/23/2020 9:54 AM EST 03/23/2020 9:54 AM EST Narrative [facility] - 03/23/2020 9:54 AM EST Specimen requisition ordered. ??Separate Pathology report to follow Davian Carolina MD PATHOLOGY/CYTOLOGY ORDERABLES Performing Organization Address [facility] Co de Phone Number [facility] [place] [address] * Surgical Pathology Report (03/23/2020 9:25 AM EST) Final Diagnosis [id number] ? Location: [facility]; [facility]; A The signing pathologist has (i) [...] [facility] Dept[facility], [place], [place] ADDITIONAL STUDIES Whole slide scan: B6,B10 [...] 7 cm ??Lesser Curvature: 5 cm ??Serosa: Emsworth-aguilar and glistening ??Mucosa: Aguilar-brown and granular with no lesions DUODENUM ??Length/Diameter: 20 x 2.0 cm ??Serosa: Emsworth-aguilar and glistening ??Mucosa: Aguilar to aguilar-brown and normally folded ??Ampulla of Vater: Pronounced and patent ??Minor papilla: Patent and uninvolved OTHER Lymph nodes: Multiple lymph nodes are identified. Ink Designation: The posterior retroperitoneal margin is inked red. The anterior serosal surface is inked green. Sections/Processin g: The following tissue is submitted for frozen section: Bisected en face pancreatic neck margin. Drywall Finishing Foreman sections in 23 cassettes as follows: ?B1-B2: [...] hepatic margin is inked black Sections/Processin g: Drywall Finishing Foreman sections in 1 cassettes as follows: ?D1: ??cystic duct margin and open claims representative mucosa. ??laura ?Frozen Section FROZEN SECTION DIAGNOSIS _BFS1,2 Pancreatic neck margin: ?Negative for tumor 03/23/20 13:12 Electronically signed by: ??Hiro Burton MD Verified: ??03/23/2020 ?Pathologist Performed at: ??-[facility] Dept. of Pathology, [place], [place] This intraoperative consultation should be interpreted as a preliminary diagnosis pending review of the entire specimen and special studies, if any. 03/30/2020 5:06 PM EST [facility] GALLBLADDER STRUCTURE / Unknown 03/23/2020 9:25 AM EST 03/23/2020 9:25 AM EST PANCREATIC STRUCTURE / Unknown 03/23/2020 9:25 AM EST 03/23/2020 9:25 AM EST LYMPH NODE SPECIMEN / Unknown 03/23/2020 9:25 AM EST 03/23/2020 9:25 AM EST GALLBLADDER STRUCTURE / Unknown 03/23/2020 9:25 AM EST 03/23/2020 9:25 AM EST Davian Carolina MD PATHOLOGY/CYTOLOGY ORDERABLES Performing Organization Address [facility]/ZIP Co de Phone Number [facility] [place] [address] * Specimen to Pathology (03/23/2020 9:25 AM EST) AP Specimen 03/23/2020 9:25 AM EST 03/23/2020 9:25 AM EST Narrative [facility] - 03/23/2020 9:25 AM EST Specimen requisition ordered. ??Separate Pathology report to follow Davian Carolina MD PATHOLOGY/CYTOLOGY ORDERABLES Performing Organization Address City/[facility]/ZIP Co de Phone Number [facility] [place] [address] * ABORH Recheck Status (03/23/2020 7:24 AM EST) ABORH Type Recheck Completed [facility] Blood specimen (specimen) 03/23/2020 7:24 AM EST 03/23/2020 7:26 AM EST Narrative Resulting Agency Comment Spec In Lab Davian Carolina MD BLOOD BANK LAB ORD ERABLES Performing Organization Address City/[facility]/ZIP Co de Phone Number [facility] [place] [address] * Antibody screen (03/23/2020 7:24 AM EST) Ab Screen Interp Negative [facility] Expires at [id number] on: 03/26/2020 [facility] Blood specimen (specimen) 03/23/2020 7:24 AM EST 03/23/2020 7:26 AM EST Narrative Resulting Agency Comment Spec In Lab Davian Carolina MD BLOOD BANK LAB ORD ERABLES Performing Organization Address City/[facility]/ZIP Co de Phone Number [facility] [place] [address] * ABO/Rh Typing (03/23/2020 7:24 AM EST) ABORH Type A Pos [facility] Blood specimen (specimen) 03/23/2020 7:24 AM EST 03/23/2020 7:26 AM EST Narrative Resulting Agency Comment Spec In Lab Davian Carolina MD BLOOD BANK LAB ORD ERABLES Performing Organization Address City/[facility] Co de Phone Number [facility] [place] [address] documented in this encounter Visit Diagnoses Not [...] Buccal, EVERY 30 MIN PRN, Starting on Tu03/24/20 [...] Discontinued, Remove lidocaine 5 %(700 mg/patch) patch bodygu-wvcuoprm-ejubzda DR (Creon 24) 24,000-76,000 -120,000 unit per [...] (Patch Removed - Provider: Jim Lim RN) cfhngn-hoscbjlu-jlyrvcn DR (Creon 24) 24,000-76,000 -120,000 unit per [...] Lim, LOS) 0812 (Given - Provider: Alanna Kaplan RN)1205 (Given - Provider: Alanna Kaplan RN) metroNIDAZOLE [...] RN)2019 (New Bag - Provider: Amado Carolina RN)205 [...] RN) 0813 (Not Given - Provider: Alanna Kaplan LOS - Reason: Medication Discontinued) pantoprazole EC [...] Routine 0856 (Given - Provider: Wendy Ruiz, RN)2020 (Given - Provider: Amado Carolina RN) 09 (Given - Provider: Wendy Ruiz RN)2043 (Given - Provider: Jim Lim RN) 0815 [...] NOT exceed 2 mg total dose. Per PHYSICIAN/INTERNIST order., Recovery (Recovery-Hospital Unit), Routine ondansetron (pf) [...] documented as of this encounter Care Teams Clinical Resource Coordinator Relationship Specialty Start Date End Date Zeny James APRN [address] [place] [address] PCP - General Family Medicine 09/23/19 documented as of this encounter
--- OUTSIDE RECORDS SUMMARY | 2024-05-10 14:58 | XMS_ITS | Encounter Summary ---
Author Organization [facility] Address [facility] [place] [address] Care Team Providers Care Electronic Technician Name Role Phone Zeny James JESUS ALBERTO Primary Care Provider Encounter Details Date Type Department Care Team (Late st Contact Info) Description 01/06/2020 External Results [place] [phone] Provider, Scanning Social History Tobacco Use Types [...] 2:00 PM EDT Office Visit Hematology/Oncology at [address] [phone] Jeffery Sanz MD [facility] DR [place] [address] Mary Nails APRN [address] [place] [address] DR MEDICAL ONCOLOGY [place], [place] [id number] 01/01/2025 2:30 PM EDT Infusion Hematology Oncology at [address] [phone] 01/14/2025 11:00 AM EDT Laboratory Appointment Lab 3[address] [place] [address] 01/14/2025 1:[address] [place] [address] Regino Carolina MD [facility] [place] [address] 01/14/2025 2:00 PM EDT Office [place] [phone] Regino Carolina MD [facility] GENERAL SURGERY [place], [place] [phone] documented as of this encounter Procedures Procedure Name Priority Date/Time Associated Diagnosis Comments SURGICAL PATHOLOGY SCAN Routine 01/06/2020 documented in this encounter Results * Scan Doc: Surgical Pathology (01/06/2020) Historical Provider MD [facility]KEON MGR SCAN EX T ORDR/RSLT documented in this encounter Visit Diagnoses Not on filedocumented in this encounter Care Teams Electronic Technician Relationship Specialty Start Date End Date Zeny James APRN [address] [place] [address] PCP - General Family Medicine 09/23/19 documented as of this encounter
--- OUTSIDE RECORDS SUMMARY | 2024-05-10 14:58 | XMS_ITS | Encounter Summary ---
Author Organization [facility] Address 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 Procedures DXA Central Spine, Hip, and/or Whole Body (Generic) [place] Dueñas MD [facility] HEMATOLOGY/[place] [address] [facility] Rad Xray [address] [place] [address] [place] [address] Referral ID Status Reason Start Date Expiration Date V isits Requested Visits Authorized [id number] Closed Specialty Service Requested 01/09/2020 07/08/2021 1 1 Reason for Visit * Diagnostic Test (Routine) - Closed Specialty Diagnoses / Procedures Referred By Contac t Referred To Contact Radiology Diagnoses Malignant neoplasm of upper-outer quadrant of left breast in female, estrogen receptor positive Osteopenia, unspecified location 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 care current use of aromatase inhibitor Procedures DXA Central Spine, Hip, and/or Whole Body (Generic) [place] Dueñas MD [facility] [address] SANCHEZ/[place] [address] [facility] Rad Xray [address] [facility] [place] [address] Referral ID Status Reason Start Date Expiration Date V isits Requested Visits Authorized [id number] Closed Specialty Service Requested 01/09/2020 07/08/2021 1 1 Encounter Details Date Type Department Care Team (Latest Contact Info) Description 01/28/2020 8:42 AM EDT - 01/28/2020 11:52 AM EDT Hospital Encounter XRay at [address] [place] [address] [place] Dueñas MD Malignant neoplasm of upper-outer quadrant of left breast in female, estrogen receptor positive; Osteopenia, unspecified location; senior care current use of aromatase inhibitor Discharge Disposition: [...] Date Blood-Glucose Meter Misc 1 Application by [employer].(Non-Drug; Combo Route) route 3 times daily (before [...] Capsule Take 1 g by mouth daily. xqfjxg-gmafsnxh-dlep ase DR (Creon 24) 24,000-76,000 -120,000 unit [...] needed for Pain. 10 tablet 04/11/2020 04/11/2020 ieuquw-qjmgxaqi-kxhi ase DR (Creon 24) 24,000-76,000 -120,000 unit Capsule, Delayed Release(E.C.) Take 2 capsules by mouth 3 times daily (with meals) for 30 days. 180 capsule 11 04/11/2020 04/11/2020 pantoprazole EC (Protonix) 40 mg Tablet, Delayed Release (E.C.) Take 1 tablet by mouth 2 times daily. 90 tablet 3 04/11/2020 04/11/2020 lancets 33 gauge Misc 1 each by [employer].(Non-Drug; Combo Route) route 3 times daily (before [...] every night 10 mL 12 04/11/2020 05/19/2020 uirsnw-qnhcmuwc-crfe ase DR (Creon) 24,000-76,000 -120,000 unit Capsule, [...] PM EDT Office Visit Hematology/Oncology at [address] [phone] Jeffery Sanz MD [facility] DR HEMATOLOGY [place] [address] Mary Nails APRN [address] [place] [address] DR MEDICAL ONCOLOGY [place], [place] [phone] 01/01/2025 2:30 PM EDT Infusion Hematology Oncology at [address] [phone] 01/14/2025 11:00 AM EDT Laboratory Appointment Lab [address] [phone] 01/14/2025 1:[address] [place] [phone] Regino Carolina MD [facility] [place] [address] 01/14/2025 2:00 PM EDT Office [place] [phone] Regino Carolina MD [facility] [place] [address] documented as of this encounter Procedures Procedure Name Priority Date/Time Associated Diagnosis Comments DXA CENTRAL SPINE, HIP, AND/OR WHOLE BODY (GENERIC) Routine 01/28/2020 9:43 AM EDT Malignant neoplasm of upper-outer quadrant of left breast in female, estrogen receptor positive Osteopenia, unspecified location 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 Paper copies will be sent to providers without E- access. If you have received this report without the data sheet and do not have access to [employer], please contact Radiology [facility] Practitioner at [phone] Monday thru Monday 8am-4pm. Thank you for letting us participate in the care of this patient. For questions regarding this report, please contact the number below. ? Electronically signed by: Maria Esther Stallworth MD, [facility] ([phone]), at 01/28/2020 1:15 PM Narrative 01/28/2020 1:15 [...] to represent a statistically significant change. At [facility], least significant change for bone mineral density measurements at the spine region of interest: 0.031 g/cm2 Total hip: Compared to the previous, 0.018 ??g/cm2 (2.4 %) decrease. This change is so small that it is unlikely to represent a statistically significant change. Compared to the baseline, 0.045 g/cm2 (5.7 %) decrease. At [facility], least significant change for bone mineral [...] to represent a statistically significant change. At [facility], least significant change for bonemineral density measurements at the spine region of interest: 0.031 g/cm2 Total hip: Compared to the previous, 0.018 g/cm2 (2.4 %) decrease. This change is sosmall that it is unlikely to represent a statistically significant change. Compared to the baseline, 0.045 g/cm2 (5.7 %) decrease. At [facility], least significant change for bonemineral density [...] BMD measurements and plots are available in EStrikefaceunder the imaging tab. Paper copies will be sent to providers without E- access.If you have received this report without the data sheet and do not haveaccess to [facility], please contact Radiology [facility] at [phone] Monday thruFriday 8am-4pm. Thank you for letting us participate in the care of this patient. Forquestions regarding this report, please contact the number below. 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
--- OUTSIDE RECORDS SUMMARY | 2024-05-10 14:58 | XMS_ITS | Encounter Summary ---
Author Organization [facility] [place] [address] Care Team Providers Care Crm Marketing Manager Name Role Phone Zeny James JESUS ALBERTO Primary Care Provider Encounter Details Date Type Department Care Team (Late st Contact Info) Description 01/06/2020 External Results [place] [address] Quinton Moreno MD [facility] [place] [address] Social History Tobacco Use Types Packs/Day Years [...] 2:00 PM EDT Office Visit Hematology/Oncology at [address] [phone] Jeffery Sanz MD [facility] DR [place] [address] Mary Nails APRN [address] [place] [address] DR MEDICAL ONCOLOGY [place], [place] [address] 01/01/2025 2:30 PM EDT Infusion Hematology Oncology at [address] [address] 01/14/2025 11:00 AM EDT Laboratory Appointment Lab 3L [place] [address] 01/14/2025 1:[address] [place] [phone] Regino Carolina MD [facility] [place] [address] 01/14/2025 2:00 PM EDT Office [place] [address] Regino Carolina MD [facility] [place] [address] documented as of this encounter Visit Diagnoses Not on filedocumented in this encounter Care Teams Crm Marketing Manager Relationship Specialty Start Date End Date Zeny James APRN [address] [place] [address] [address] [place] [address] PCP - General Family Medicine 09/23/19 documented as of this encounter
--- OUTSIDE RECORDS SUMMARY | 2024-05-10 14:58 | XMS_ITS | Encounter Summary ---
Author Organization [facility] [place] [address] Care Team Providers Care Coin Machine Operator Name Role Phone Zeny James JESUS ALBERTO Primary Care Provider Reason for Visit * Reason Onset Date Comments Medication Refill Medication Refill 01/13/2020 Encounter Details Date Type Department Care Team (Late Contact Info) Description 01/13/2020 Refill [place] [address] Regino Carolina MD [facility] [place] [address] Social History Tobacco Use Types Packs/Day Years [...] PM EDT Office Visit Hematology/Oncology at [address] [phone] Jeffery Sanz MD [facility] [place] [address] Mary Nails APRN [address] [place] [address] DR MEDICAL ONCOLOGY [place], [place] [phone] 01/01/2025 2:30 PM EDT Infusion Hematology Oncology at [address] [place] [address] 01/14/2025 11:00 AM EDT Laboratory Appointment Lab 3[address] [place] [address] 01/14/2025 1:[address] [place] [phone] Regino Carolina MD [facility] [place] [address] 01/14/2025 2:00 PM EDT Office Visit [place] [phone] Regino Carolina MD [facility] [place] [address] documented as of this encounter Visit Diagnoses Not on filedocumented in this encounter Care Teams Coin Machine Operator Relationship Specialty Start Date End Date Zeny James APRN [address] [place] [address] PCP - General Family Medicine 09/23/19 documented as of this encounter
--- OUTSIDE RECORDS SUMMARY | 2024-05-10 14:58 | XMS_ITS | Encounter Summary ---
Author Organization [facility] [place] [address] Care Team Providers Care Crane Assembler Name Role Phone Zeny James ASPHALT TAMPING MACHINE OPERATOR Primary Care Provider [phone] Encounter Details Date Type Department Care Team (Latest Contact Info) Description 01/09/2020 9:37 AM EDT - 01/09/2020 11:59 PM EDT Hospital Encounter [place] [address] Malignant neoplasm of upper-outer quadrant of left [...] by mouth every other day. 10/25/2019 04/11/2020 osnxxo-nbkugqqa-mvflua e DR (Creon) 24,000-76,000 -120,000 unit Capsule, [...] PM EDT Office Visit Hematology/Oncology at [address] [address] Jeffery Sanz MD [facility] HEMATOLOGY AND ONCOLOGY [place], [place] [phone] Mary Nails APRN [address] [place] [address] [place] [address] 01/01/2025 2:30 PM EDT Infusion Hematology Oncology at [address] [address] 01/14/2025 11:00 AM EDT Laboratory Appointment Lab [place] [phone] 01/14/2025 1:[address] [place] [place] [phone] Regino Carolina MD [facility] [place] [address] 01/14/2025 2:00 PM EDT Office [place] [phone] Regino Carolina MD [facility] [place] [address] Scheduled Orders Name Type Priority Associated Diagnoses Orde r Schedule Comprehensive metabolic panel (non-fasting) Lab Routine Malignant neoplasm of pancreatic duct 1 Occurrences starting 01/09/2020 until 01/09/2020 documented as of this encounter Procedures Procedure Name Priority Date/Time Associated Diagnosis Comments HC CARBOHYDRATE ANTIGEN 19-9 Routine 01/09/2020 9:45 AM EDT Malignant neoplasm of pancreatic duct COMPREHENSIVE METABOLIC PANEL STAT 01/09/2020 9:45 AM EDT Malignant neoplasm of upper-outer quadrant of left breast in female, estrogen receptor positive documented in this encounter Results * Carbohydrate Antigen 19-9 (01/09/2020 9:45 AM EDT) CA 19-9 24.6 <=35.0 u/ml [facility] Blood specimen (specimen) 01/09/2020 9:45 AM EDT 01/09/2020 10:00 AM EDT Narrative Resulting Agency Comment Spec In Lab Regino Carolina MD CHEMISTRY ORDERABL ES [facility] [place] [address] * (ABNORMAL) Comprehensive metabolic panel (non-fasting) (01/09/2020 9:45 AM EDT) Glucose 102 65 - 199 mg/dL [facility] Comment:Diabetes: >=200 mg/d L plus symptoms Blood Urea Nitrogen 12 8 - 18 mg/dL [facility] Creatinine 0.72 0.70 - 1.20 mg/dL [facility] Sodium 133(L) 135 - 145 mmol/L [facility] Potassium 4.3 3.5 - 5.0 mmol/L [facility] Comment: Please note: ??Patients with WBC >100,000 may have falsely elevated Potassium levels. ??For accurate Potassium quantification in these patients send serum separator tube (gold top) for subsequent determinations. ??Contact the Clinical Chemistry Laboratory if there are any questions. Chloride 95(L) 98 - 107 mmol/L [facility] Carbon Dioxide 27 22 - 31 mmol/L [facility] Anion Gap 11 5 - 15 mmol/L [facility] Calcium 10.9(H) 8.5 - 10.5 mg/dL [facility] Protein, Total 7.2 6.1 - 8.0 gm/dL [facility] Albumin 4.7 3.2 - 5.2 gm/dL [facility] Aspartate Aminotransferase 32(H) 0 - 30 unit/L [facility] Alanine Aminotransferase 31(H) 0 - 30 unit/L [facility] Alkaline Phosphatase 113(H) 35 - 105 unit/L [facility] Bilirubin, Total 0.5 0.2 - 1.3 mg/dL [facility] Est Glomerular Filtration Rate 83 >=60 mL/min/1. 73 m?? [facility] Comment: The eGFR was calculated using the CKD-EPI equation. As with all creatinine based estimates of kidney function, eGFR values calculated with the CKD-EPI equation are not accurate in patients with acute kidney failure, extremes of body mass or the acutely ill. [email or web address] eGFR 96 >=60 mL/min/1. 73 m?? [facility] Comment: The eGFR was calculated using the CKD-EPI equation. As with all creatinine based estimates of kidney function, eGFR values calculated with the CKD-EPI equation are not accurate in patients with acute kidney failure, extremes of body mass or the acutely ill. 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
--- OUTSIDE RECORDS SUMMARY | 2024-05-10 14:58 | XMS_ITS | Encounter Summary ---
[place] [address] Care Team Providers Care Trade Mark Examiner Name Role Phone Zeny James APRN Primary Care Provider Reason for Referral * Diagnostic Test (Routine) - Closed Specialty Diagnoses / Procedures Referred By Nir potts Referred To Contact Radiology Diagnoses Malignant neoplasm of pancreatic duct Procedures CT Abdomen w Contrast Regino Carolina MD [facility] [place] [address] [facility] [place] [address] Referral ID Status Reason Start Date Expiration Date V isits Requested Visits Authorized [id number] Closed Specialty Service Requested 12/09/2019 06/10/2021 1 1 Reason for Visit * Diagnostic Test (Routine) - Closed Specialty Diagnoses / Procedures Referred By Nir potts Referred To Contact Radiology Diagnoses Malignant neoplasm of pancreatic duct Procedures CT Abdomen w Contrast Regino Carolina MD [facility] [place] [address] [facility] [place] [address] Referral ID Status Reason Start Date Expiration Date V isits Requested Visits Authorized [id number] Closed Specialty Service Requested 12/09/2019 06/10/2021 1 1 Encounter Details Date Type Department Care Team (Late st Contact Info) Description 01/28/2020 11:53 AM EDT - 01/28/2020 11:59 PM EDT Hospital [place] [address] Regino Carolina MD [facility] [place] [address] Malignant neoplasm of pancreatic duct Discharge Disposition: [...] Date Blood-Glucose Meter Misc 1 Application by [employer].(Non-Drug; Combo Route) route 3 times daily (before [...] (E.C.) Take 81 mg by mouth daily. nkmyav-todmndxd-ftoe ase DR (Creon 24) 24,000-76,000 -120,000 unit [...] needed for Pain. 10 tablet 04/11/2020 04/11/2020 atevzq-vshluqye-qgmm ase DR (Creon 24) 24,000-76,000 -120,000 unit Capsule, Delayed Release(E.C.) Take 2 capsules by mouth 3 times daily (with meals) for 30 days. 180 capsule 11 04/11/2020 04/11/2020 pantoprazole EC (Protonix) 40 mg Tablet, Delayed Release (E.C.) Take 1 tablet by mouth 2 times daily. 90 tablet 3 04/11/2020 04/11/2020 lancets 33 gauge Misc 1 each by [facility].(Non-Drug; Combo Route) route 3 times daily (before [...] gauge x 5/16 Syringe 1 each by [facility].(Non-Drug; Combo Route) route nightly. 30 Syringe 11 04/11/2020 04/11/2020 Blood-Glucose Meter Misc 1 Application by [facility].(Non-Drug; Combo Route) route 3 times daily (before [...] every night 10 mL 12 04/11/2020 05/19/2020 auiobu-jnlfeczw-gqra ase DR (Creon) 24,000-76,000 -120,000 unit Capsule, [...] daily. 01/19/2023 fluticasone propionate (FLONASE) 50 mcg/actuation [place], Suspension 1 spray by Each Nare route [...] PM EDT Office Visit Hematology/Oncology at [address] [phone] Jeffery Sanz MD [facility] DR HEMATOLOGY [place] [address] Mary Nails APRN [address] [place] [address] DR MEDICAL ONCOLOGY [place], [place] [address] 01/01/2025 2:30 PM EDT Infusion Hematology Oncology at [address] [address] 01/14/2025 11:00 AM EDT Laboratory Appointment Lab 3[place] [phone] 01/14/2025 1:[address] [place] [phone] Regino Carolina MD [facility] [place] [address] 01/14/2025 2:00 PM EDT Office Visit [place] [address] Regino Carolina MD [facility] [place] [address] documented as of this encounter Procedures Procedure [...] interpretation and agree with the findings, Donn Springre DO at 01/28/2020 3:45 PM Thank you for letting us participate in the care of this patient. For questions regarding this report, please contact the number below. ? Electronically signed by: Donn Springer DO, [facility] ([phone]), at 01/28/2020 3:45 PM Narrative 01/28/2020 3:45 PM EDT EXAMINATION: CT [...] structures: No suspicious lesions. Procedure Note Donn Springer Hernán, DO - 01/28/2020 EXAMINATION: CT ABDOMEN W CONTRAST [...] mLs documented in this encounter Care Teams Trade Mark Examiner Relationship Specialty Start Date End Date Zeny James APRN [address] [place] [address] PCP - General Family Medicine 09/23/19 documented as of this encounter
--- OUTSIDE RECORDS SUMMARY | 2024-05-10 14:58 | XMS_ITS | Encounter Summary ---
Author Organization [facility] Address [facility] [place] [address] Care Team Providers Care Family And Consumer Sciences Teacher Name Role Phone Zeny James TRANSMISSION SUPERVISOR Primary Care Provider [phone] Reason for Visit * Reason Comments Genetic Evaluation * Consultation (Routine) - Closed Specialty Diagnoses / Procedures Referred By Nir potts Referred To Contact Hematology and Oncology Diagnoses Malignant neoplasm of upper-outer quadrant of left breast in female, estrogen receptor positive Family history of breast cancer in first degree relative Roosevelt Dueñas MD [facility] DR HEMATOLOGY/[place] [address] [facility] Hem Onc Office [address] [place] [phone] Referral ID Status Reason Start Date Expiration Date V isits Requested Visits Authorized [id number] Closed Consult, Test & Treat 01/09/2020 01/08/2021 1 1 Encounter Details Date Type Department Care Team (Latest Contact Info) Description 03/19/2020 11:00 AM EST TH Visit (TeleHealth) [place] [address] Steph Swartz, LGC Malignant neoplasm of upper-outer quadrant of left [...] background is Scandinavian. Paternal ethnic background is Maltese, Irish. Genetic risk assessment Linda's sister had genetic testing in 2016 with a 17 gene panel (ZAIDA, BARD1, [...] the family. Linda opted for testing with [facility]'s Common Hereditary Cancers Panel, a next generation sequencing panel that simultaneously analyzes 47 genes, including CHEK2, BRCA1 and BRCA2, that contribute to increased risk for cancer. Linda was consented. Her blood sample was drawn and sent to [facility]. Testing will take up to 3 weeks. [...] PM EDT Office Visit Hematology/Oncology at [address] [phone] Jeffery Sanz MD [facility] [address] [place] [address] Mary Nails APRN [address] [place] [address] [place] [address] 01/01/2025 2:30 PM EDT Infusion Hematology Oncology at [address] [phone] 01/14/2025 11:00 AM EDT Laboratory Appointment Lab [place] [address] 01/14/2025 1:[address] [place] [address] Regino Carolina MD [facility] [place] [address] 01/14/2025 2:00 PM EDT Office [place] [address] Regino Carolina MD [facility] [place] [address] Scheduled Referrals Name Type Priority Associated Diagnoses [...] breast documented in this encounter Care Teams Family And Consumer Sciences Teacher Relationship Specialty Start Date End Date Zeny James APRN [address] [place] [address] PCP - General Family Medicine 09/23/19 documented as of this encounter
--- OUTSIDE RECORDS SUMMARY | 2024-05-10 14:58 | XMS_ITS | Encounter Summary ---
Author Organization [facility] [place] [address] Care Team Providers Care Floral Design Teacher Name Role Phone Zeny James APRN Primary Care Provider [phone] Encounter Details Date Type Department Care Team (Late st Contact Info) Description 01/09/2020 10:45 AM EDT Office [place] [address] Susan Rivera MD [facility] [place] [address] Malignant neoplasm of upper-outer quadrant of left [...] for newly diagnosed left breast cancer (ER+, [place]-, HER2-) diagnosed after abnormal screening mammogram. Of note, she has a history of MRM on the right in 2000. ?? Maricruz presented for screening mammogram in November,. This revealed a subtle focal asymmetry of the outer left breast, at approximately 3:00, 7 to 8 cm from the nipple measuring 1 cm.?Call back imaging confirmed a suspicious finding and pathology revealed ER+, [place]- , HER2- IDC. ?? 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 ??Her 7 years ago and she currently lives alone. ?She has??adopted??3 sons who live in [place], [place] in [place] and 6 stepchildren. ??She drinks??rarely. No tobacco [...] yo female with stage I ILC ??ER+, [place]-, HER2-- IDC??of the left breast.She has recovered fully from mastectomy and has seen medical oncology. Plan AI. No PMRT or chemotherapy indicated. Iwmelany set Maricruz up in [place] for PT for both underlying left shoulder [...] 2:00 PM EDT Office Visit Hematology/Oncology at [address] [phone] Jeffery Sanz MD [facility] [place] [address] Mary Nails APRN [address] [place] [address] DR MEDICAL ONCOLOGY [place], [place] [id number] 01/01/2025 2:30 PM EDT Infusion Hematology Oncology at [address] [phone] 01/14/2025 11:00 AM EDT Laboratory Appointment Lab [address] [place] [phone] 01/14/2025 1:[address] [place] [phone] Regino Carolina MD [facility] [place] [address] 01/14/2025 2:00 PM EDT Office [place] [phone] Regino Carolina MD [facility] [place] [address] documented as of this encounter Visit Diagnoses Diagnosis Malignant neoplasm of upper-outer quadrant of left breast in female, estrogen receptor positive documented in this encounter Care Teams Floral Design Teacher Relationship Specialty Start Date End Date Zeny James APRN [address] [place] [address] PCP - General Family Medicine 09/23/19 documented as of this encounter
--- OUTSIDE RECORDS SUMMARY | 2024-05-10 14:58 | XMS_ITS | Encounter Summary ---
Author Organization [facility] Address [facility] [place] [address] Care Team Providers Care Audit Machine Operator Name Role Phone Zeny James LOG CHIPPER OPERATOR Primary Care Provider Reason for Referral * Consultation (Routine) - Closed Specialty Diagnoses / Procedures Referred By Contac t Referred To Contact Hematology and Oncology Diagnoses Malignant neoplasm of upper-outer quadrant of left breast in female, estrogen receptor positive Family history of breast cancer in first degree relative Roosevelt Dueñas MD [facility] HEMATOLOGY/[place] [address] [facility] Hem Onc Office [address] [place] [phone] Referral ID Status Reason Start Date Expiration Date V isits Requested Visits Authorized [id number] Closed Consult, Test & Treat 01/09/2020 01/08/2021 1 1 * Diagnostic Test (Routine) - Closed Specialty Diagnoses / Procedures Referred By Contac t Referred To Contact Radiology Diagnoses Malignant neoplasm of upper-outer quadrant of left breast in female, estrogen receptor positive Osteopenia, unspecified location shelter current use of aromatase inhibitor Procedures DXA Central Spine, Hip, and/or Whole Body (Generic) Roosevelt Dueñas MD [facility] HEMATOLOGY/[place] [address] [facility] Rad Xray [address] [place] [address] [place] [phone] Referral ID Status Reason Start Date Expiration Date V isits Requested Visits Authorized [id number] Closed Specialty Service Requested 01/09/2020 07/08/2021 1 1 Reason for Visit * Reason Comments Follow-up * Consultation (Routine) - Specialty Diagnoses / Procedures Referred By Contac t Referred To Contact Hematology and Oncology Diagnoses Breast cancer S/P L MAST SURG 12/19 C/W SUSAN (DC) Procedures [facility] Susan Rivera MD [facility] [place] [address] Roosevelt Dueñas MD Referral ID Status Reason Start Date Expiration Date V isits Requested Visits Authorized [id number] 01/09/2020 01/08/2021 1 1 Encounter Details Date Type Department Care Team (Late st Contact Info) Description 01/09/2020 9:00 AM EDT Office Visit Hematology [place] [address] Roosevelt Dueñas MD Maynard, Kimberly J, RN Malignant neoplasm of upper-outer quadrant of left breast in female, estrogen receptor positive; Osteopenia, unspecified location; shelter current use of aromatase inhibitor; Family history [...] cancer cells with immunostaining) Stain intensity: Strong DE immunoreactivity: Negative (<1% cancer cells with immunostaining) [...] Lymph Nodes Examined: ??2 ? Number of Slater Nodes Examined: ??2 Pathologic Stage Classification (pTNM, AJCC 8th Edition) ?pT1c pN0 OncotypeDx Recurrence Score = 23, which as per TailorRx trial, does not warrant adjuvant chemo. PMH: Past Medical History: Diagnosis Date ??? Basal cell carcinoma 2009 [facility]-back ??? Breast cancer Prior breast cancer was R breast invasive lobular ca, s/p mastectomy, in 2000 (age 55). Two of 9 nodes were positive. ER-pos/DE-neg. Received AC/Taxol. Then took tamoxifen for 5 [...] Jennifer Carolina. 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 Lives alone ( 7 yr ago). Family History Problem Relation Age of Onset ??? Breast Cancer Sister 50 early 50's. A&W in 2020 ??? Ovarian Cancer Neg Hx Sister had [...] cells were positive for ER, negative for DE. HER2 without amplification. There was no angiolymphatic invasion and 2 sentinel nodes were negative. pT1c pN0 OncotypeDx Recurrence Score = 23, which as per TailorRx trial does not warrant adjuvant chemo. 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 Prior R breast invasive lobular ca in 2000 at age 55. Two of 9 nodes were positive. ER-pos/DE-neg. Received AC/Taxol. Then took tamoxifen for 5 [...] PM EDT Office Visit Hematology/Oncology at [address] [phone] Jeffery Sanz MD [facility] DR H[place]AT[place]Y [place] [address] Mary Nails APRN [address] [place] [address] [place] [address] 01/01/2025 2:30 PM EDT Infusion Hematology Oncology at [address] [phone] 01/14/2025 11:00 AM EDT Laboratory Appointment Lab [place] [address] 01/14/2025 1:[address] [place] [phone] Regino Carolina MD [facility] [place] [address] 01/14/2025 2:00 PM EDT Office [place] [phone] Regino Carolina MD [facility] [place] [address] Scheduled Referrals Name Type Priority Associated Diagnoses [...] BMD measurements and plots are available in ENext audience under the imaging tab. Paper copies will be sent to providers without E- access. If you have received this report without the data sheet and do not have access to ENext audience, please contact Radiology Wellness Program Coordinator at [phone] Monday thru Monday 8am-4pm. Thank you for letting us participate in the care of this patient. For questions regarding this report, please contact the number below. ? Electronically signed by: Maria Esther Stallworth MD, [facility] ([phone]), at 01/28/2020 1:15 PM Narrative 01/28/2020 1:15 [...] to represent a statistically significant change. At [facility], least significant change for bone mineral density measurements at the spine region of interest: 0.031 g/cm2 Total hip: Compared to the previous, 0.018 ??g/cm2 (2.4 %) decrease. This change is so small that it is unlikely to represent a statistically significant change. Compared to the baseline, 0.045 g/cm2 (5.7 %) decrease. At [facility], least significant change for bone mineral [...] to represent a statistically significant change. At [facility], least significant change for bonemineral density measurements at the spine region of interest: 0.031 g/cm2 Total hip: Compared to the previous, 0.018 g/cm2 (2.4 %) decrease. This change is sosmall that it is unlikely to represent a statistically significant change. Compared to the baseline, 0.045 g/cm2 (5.7 %) decrease. At [facility], least significant change for bonemineral density [...] BMD measurements and plots are available in E-Store Vantageunder the imaging tab. Paper copies will be sent to providers without InExchange access.If you have received this report without the data sheet and do not haveaccess to E-Store Vantage, please contact Radiology Wellness Program Coordinator at [phone] Monday thruFriday 8am-4pm. Thank you for letting us participate in the care of this patient. Forquestions regarding this report, please contact the number below. Roosevelt Dueñas MD IMG DEXA ORDERABLES * (ABNORMAL) Comprehensive metabolic panel (non-fasting) (01/09/2020 9:45 AM EDT) Glucose 102 65 - 199 mg/dL [facility] Comment:Diabetes: >=200 mg/d L plus symptoms Blood Urea Nitrogen 12 8 - 18 mg/dL [facility] Creatinine 0.72 0.70 - 1.20 mg/dL [facility] Sodium 133(L) 135 - 145 mmol/L [facility] Potassium 4.3 3.5 - 5.0 mmol/L [facility] Comment: Please note: ??Patients with WBC >100,000 may have falsely elevated Potassium levels. ??For accurate Potassium quantification in these patients send serum separator tube (gold top) for subsequent determinations. ??Contact the Clinical Chemistry Laboratory if there are any questions. Chloride 95(L) 98 - 107 mmol/L [facility] Carbon Dioxide 27 22 - 31 mmol/L [facility] Anion Gap 11 5 - 15 mmol/L [facility] Calcium 10.9(H) 8.5 - 10.5 mg/dL [facility] Protein, Total 7.2 6.1 - 8.0 gm/dL [facility] Albumin 4.7 3.2 - 5.2 gm/dL [facility] Aspartate Aminotransferase 32(H) 0 - 30 unit/L [facility] Alanine Aminotransferase 31(H) 0 - 30 unit/L [facility] Alkaline Phosphatase 113(H) 35 - 105 unit/L [facility] Bilirubin, Total 0.5 0.2 - 1.3 mg/dL [facility] Est Glomerular Filtration Rate 83 >=60 mL/min/1. 73 m?? [facility] Comment: The eGFR was calculated using the CKD-EPI equation. As with all creatinine based estimates of kidney function, eGFR values calculated with the CKD-EPI equation are not accurate in patients with acute kidney failure, extremes of body mass or the acutely ill. [email or web address] [email or web address] eGFR 96 >=60 mL/min/1. 73 m?? [facility] Comment: The eGFR was calculated using the CKD-EPI equation. As with all creatinine based estimates of kidney function, eGFR values calculated with the CKD-EPI equation are not accurate in patients with acute kidney failure, extremes of body mass or the acutely ill. [email or web address] [email or web address] Blood specimen (specimen) 01/09/2020 9:45 AM EDT 01/09/2020 10:00 AM EDT Narrative Resulting Agency Comment Spec In Lab Roosevelt Dueñas MD CHEMISTRY ORDERABLES [facility] [place] [id number] documented in this encounter Visit Diagnoses Diagnosis Malignant neoplasm of upper-outer quadrant of left breast in female, estrogen receptor positive Osteopenia, unspecified location supervisor intermediates current use of aromatase inhibitor Use of aromatase inhibitors Family history of breast cancer in first degree relative Family history of malignant neoplasm of breast Malignant neoplasm of upper-outer quadrant of left breast in female, estrogen receptor positive Osteopenia, unspecified location supervisor intermediates current use of aromatase inhibitor Use of aromatase inhibitors documented in this encounter Care Teams Audit Machine Operator Relationship Specialty Start Date End Date Zeny James APRN [address] [place] [address] PCP - General Family Medicine 09/23/19 documented as of this encounter
--- OUTSIDE RECORDS SUMMARY | 2024-05-10 14:58 | XMS_ITS | Encounter Summary ---
Author Organization [facility] [place] [address] Care Team Providers Care Production Broaching Machine Operator Name Role Phone Zeny James APRN Primary Care Provider [phone] Encounter Details Date Type Department Care Team (Late st Contact Info) Description 01/28/2020 2:00 PM EDT Office Visit [place] [address] Regino Carolina MD [facility] [place] [address] IPMN (intraductal papillary mucinous neoplasm) Social History [...] Serrano is a 74 year woman from [place], [place]. She [facility] ED on 2019 with epigastric abdominal pain [...] of pancreatic duct/cyst fluid cytopathology per Acc# [id number] showed neoplastic Cells Present. Abundant macrophages, mixed leukocytes present and a single group of bland-appearing columnar cells. ??Cell block was examined. Note: The fluid CEA level is consistent with neoplastic process. 11/25/2019 surgical oncology consult. Maricruz was seen for surgery consultation. She was by herself. She described the episode that brought her to the ED at [facility] as the first time she is ever [...] systems: A comprehensive ROS questionnaire (scanned into [facility]) was completed by the patient - pertinent surgical related findings are summarized below. All other systems on the questionnaire were reviewed and were negative. She has never had any heart attack or chest pain symptoms. She is very active with housework, yard work and walking every day with her friends. 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 Her 7 years ago and she currently lives alone. Her stepdaughter Sienna lives nearby. She has 3 sons who live in [place], [place] in [place] and 6 stepchildren who she is very [...] cancer. Medications: 1. Tylenol as needed 2. Mcl-jxp-bxcreoffo sulfate inhaler 2 puffs twice daily 3. Aspirin 81 mg daily 4. Calcium carbonate vitamin D3 600/15 100/800 unit tablet-1 tablet daily. 5. Cholecalciferol 25 mcg (1000 units) daily 6. Fluticasone 500 mcg Solu-Medrol 50 mcg inhaler twice daily 7. Flonase 2 sprays intranasally as needed 8. Magnesium oxide 4 mg daily 9. Multivitamin Centrum Silver women 10. [place]-3 1000 mg fish oil capsule daily 11. [...] with for her stage I ILC ??ER+, [place]-, HER2-- IDC??of theleft breast. She has recovered [...] 3:01 PM This note was created using [employer]) voice recognition software. documented in this encounter Plan of Treatment Upcoming Encounters Date Type Department Care Team (Late st Contact Info) Description 01/01/2025 2:00 PM EDT Office Visit Hematology/Oncology at [address] [phone] Jeffery Sanz MD [facility] DR HEMATOLOGY [place] [address] Mary Nails APRN [address] [place] [address] [place] [address] 01/01/2025 2:30 PM EDT Infusion Hematology Oncology at [address] [phone] 01/14/2025 11:00 AM EDT Laboratory Appointment Lab 3[place] [address] 01/14/2025 1:[address] [place] [phone] Regino Carolina MD [facility] [place] [address] 01/14/2025 2:00 PM EDT Office Visit [place] [phone] Regino Carolina MD [facility] [place] [address] documented as of this encounter Visit Diagnoses Diagnosis IPMN (intraductal papillary mucinous neoplasm) Neoplasm of unspecified nature of digestive system documented in this encounter Care Teams Production Broaching Machine Operator Relationship Specialty Start Date End Date Zeny James APRN [address] [place] [address] [address] [place] [address] PCP - General Family Medicine 09/23/19 documented as of this encounter
--- OUTSIDE RECORDS SUMMARY | 2024-05-10 14:58 | XMS_ITS | Encounter Summary ---
Author Organization [facility] [place] [address] Care Team Providers Care Agency Legal Counsel Name Role Phone Zeny James APRN Primary Care Provider Encounter Details Date Type Department Care Team (Late st Contact Info) Description 12/27/2019 Telephone Hematology [place] [phone] Inez Corona Social History Tobacco Use Types [...] EDT Request for Oncotype testing sent to [facility]. No insurance auth needed as patient has Medicare A&B primary. documented in this encounter Plan of Treatment Upcoming Encounters Date Type Department Care Team (Late st Contact Info) Description 01/01/2025 2:00 PM EDT Office Visit Hematology/Oncology at [address] [phone] Jeffery Sanz MD [facility] DR [place] [address] Mary Nails APRN [address] [place] [address] [place] [address] 01/01/2025 2:30 PM EDT Infusion Hematology Oncology at [address] [phone] 01/14/2025 11:00 AM EDT Laboratory Appointment Lab [address] [place] [address] 01/14/2025 1:[address] [place] [phone] Regino Carolina MD [facility] [place] [address] 01/14/2025 2:00 PM EDT Office [place] [address] Regino Carolina MD [facility] [place] [address] documented as of this encounter Visit Diagnoses Not on filedocumented in this encounter Care Teams Agency Legal Counsel Relationship Specialty Start Date End Date Zeny James APRN [address] [place] [address] PCP - General Family Medicine 09/23/19 documented as of this encounter
--- OUTSIDE RECORDS SUMMARY | 2024-05-10 14:58 | XMS_ITS | Encounter Summary ---
Author Organization [facility]ela [facility] [place] [address] Care Team Providers Care Floor Grinder Name Role Phone Zeny James APRN Primary Care Provider Reason for Visit * Auth/Cert Specialty Diagnoses / Procedures Referred By Nir t Referred To Contact Diagnoses IPMN Procedures PRO PART REMV PANC, PROX+PART DUOD+ANAST @PANCREATECTOMY, WHIPPLE TYPE WITH PANCREATOJEJUNOSTOMY (WRVU 52.79) MODIFIER ROBOT,DAVINCI XI Referral ID Status Reason Start Date Expiration Date Visits Re quested Visits Authorized [id number] 1 1 Encounter Details Date Type Department Care Team (Late st Contact Info) Description 03/23/2020 7:44 AM EST Anesthesia Event [place] [address] Shayan Louis MD [facility] [place] [address] Cherri Khan MD [facility] [place] [address] Anesthesia Record Procedure Summary Procedure Name Responsible [...] cuff reading ~ 40-50 pts higher than Jennings. Bree dampened, flushed, wrist position changed. Still dampened. Will resume NIBP q 5 mins and use those values 1300 Quick Note Jennings maintaine d but D/C'd from monitor due to dampened waveform and unreliable values. Bree maintained in situ in case of need [...] 0846 by 03/23/20 2100 by Debra Keen, LOS Incision 12/20/19; 1218; carlos alberto st; 12/13/21 [...] 0811; median cubital vein (antecubital fossa), left; loql-tir-pngajk catheter system; 18 gauge; Erin; removed per [...] Procedure Summary Date: 03/23/20 Room / Location: [facility] OR [facility] MAIN OR Anesthesia Start: 743 Anesthesia Stop: 1717 Procedures: ROBOTIC PANCREATECTOMY,WHIPPLE, PARTIAL GASTRECTOMY W/ PANCREATOJEJUNOSTOMY (N/A Abdomen) MODIFIER ROBOT,DAVINCI XI (N/A Abdomen) @OMENTAL FLAP, INTRA-ABDOMINAL (WRVU 6.54) (Abdomen) Diagnosis: (IPMN) Surgeon: Regino Carolina MD Responsible Provider: Shayan Louis MD Anesthesia Type: general ASA Status: 3 All Anesthesia Providers: Anesthesiologist: Cherri Khan MD; Shayan Louis MD CONTRACTS ATTORNEY: Ranjit Abraham CRNA Vitals Value Taken Time [...] be needed. Shayan Louis MD 03/23/2020 Shayan Lousi MD * Anesthesia Preprocedure Evaluation - Cherri Khan MD - 03/23/2020 6:59 AM EST Pre-Anesthesia Evaluation for: Linda Maggie a 74 y.o. female. Procedure(s): @PANCREATECTOMY, WHIPPLE TYPE WITH PANCREATOJEJUNOSTOMY (WRVU 52.79) MODIFIER ROBOT,MALLORYI XI Patient Active Problem List Diagnosis ??? Malignant neoplasm of left breast in female, estrogen receptor positive Dx: 12/05/19 [facility] ??? IPMN (intraductal papillary mucinous neoplasm) ??? [...] specimens had focally suggestive angiolymphatic invasion. ER-pos; GA-neg; HER2=2+. 02/06/01: R MRM/ax dissection. On path, [...] N/A 12/05/2019 Mammo Stereotactic Biopsy Left 12/05/2019 [facility] RAD MAMMOGRAPHY ??? MASTECTOMY Right with RT ??? PRO BX/REMV, LYMPH NODE, DEEP AXILL Left 12/20/2019 BIOPSY OR EXCISION OF LYMPH NODE(S), OPEN, DEEP AXILLARY NODE(S) (WRVU 6.43) performed by Susan Rivera MD at [facility]SC ??? PRO COLONOSCOPY, DIAGNOSTIC 01/07/2014 COLONOSCOPY, DIAGNOSTIC performed by Izzy Johnson MD at [facility] ENDOSCOPY ??? PRO ENDOSCOPIC US EXAM, ESOPH N/A 11/15/2019 UPPER EUS- ENDOSCOPIC ULTRASOUND performed by Ralf Urrutia MD at [facility] ENDOSCOPY ??? PRO INTRAOP SENTINEL LYMPH ID W/DYE INJECTION Left 12/20/2019 INTRAOPERATIVE ID (MAPPING) SENTINEL LYMPH NODE,INCLUDES INJECTION (WRVU 2.5) performed by Susan Rivera MD at [facility] ??? PRO MASTECTOMY, SIMPLE, COMPLETE Left 12/20/2019 MASTECTOMY, SIMPLE, COMPLETE (WRVU 15.85) performed by Susan Rivera MD at [facility] Social History Tobacco Use ??? [...] discussed with patient who. Plan discussed with CONTRACTS ATTORNEY. NONA Clinic Note documented in this encounter Plan of Treatment Upcoming Encounters Date Type Department Care Team (Late st Contact Info) Description 01/01/2025 2:00 PM EDT Office Visit Hematology/Oncology at [address] [phone] Jeffery Sanz MD [facility] DR HEMATOLOGY [place] [address] Mary Nails, JESUS ALBERTO [address] [place] [address] DR MEDICAL ONCOLOGY [place], [place] [id number] 01/01/2025 2:30 PM EDT Infusion Hematology Oncology at [address] [phone] 01/14/2025 11:00 AM EDT Laboratory Appointment Lab [address] [phone] 01/14/2025 1:[address] [place] [phone] Regino Carolina MD [facility] [place] [address] 01/14/2025 2:00 PM EDT Office [place] [phone] Regino Carolina MD [facility] [place] [address] documented as of this encounter Visit Diagnoses [...] mg documented in this encounter Care Teams Floor Grinder Relationship Specialty Start Date End Date Zeny James, JESUS ALBERTO [address] [place] [address] PCP - General Family Medicine 09/23/19 documented as of this encounter
--- OUTSIDE RECORDS SUMMARY | 2024-05-10 14:58 | XMS_ITS | Encounter Summary ---
Author Organization [facility] Address [facility] [place] [address] Care Team Providers Care Mirror Maker Name Role Phone Zeny James APRN Primary Care Provider Encounter Details Date Type Department Care Team (Latest Contact Info) Description 01/06/2020 8:51 AM EDT - 01/06/2020 11:59 PM EDT Hospital En[place] [address] hCina Ramirez MD [facility] [place] [place] [address] Discharge Disposition: Home Social History Tobacco Use [...] by mouth every other day. 10/25/2019 04/11/[address] n[address]-csiwrzwf-dniloy e DR (Ryan) 24,000-76,000 -120,000 unit Capsule, Delayed Release(E.C.) [...] PM EDT Office Visit Hematology/Oncology at [address] [phone] Jeffery Sanz MD [facility] [place] [address] Mary Nails APRN [address] [place] [address] [place] [address] 01/01/2025 2:30 PM EDT Infusion Hematology Oncology at [address] [phone] 01/14/2025 11:00 AM EDT Laboratory Appointment Lab [address] [place] [phone] 01/14/2025 1:[address] [place] [phone] Regino Carolina MD [facility] [place] [address] 01/14/2025 2:00 PM EDT Office Visit [place] [address] Regino Carolina MD [facility] [place] [place] [address] documented as of this encounter Procedures Procedure Name Priority Date/Time Associated Diagnosis Comments MAMMO BREAST PATHOLOGY MASTECTOMY Routine 01/06/2020 8:51 AM EDT documented in this encounter Results * MAMMO BREAST PATHOLOGY MASTECTOMY (01/06/2020 8:51 AM EDT) Narrative [facility] - 01/06/2020 8:51 AM EDT This exam is auto-finalizing. No interpretation was done. China Ramirez MD IMG MAMMO ORDERABL ES [place], [place] documented in this encounter Visit Diagnoses Not on filedocumented in this encounter Care Teams Mirror Maker Relationship Specialty Start Date End Date Zeny James APRN [address] [place] [address] PCP - General Family Medicine 09/23/19 documented as of this encounter
--- OUTSIDE RECORDS SUMMARY | 2024-05-10 14:58 | XMS_ITS | Encounter Summary ---
Author Organization [facility] [place] [address] Care Team Providers Care University Internship Name Role Phone Zeny James APRN Primary Care Provider Reason for Visit * Auth/Cert Specialty Diagnoses / Procedures Referred By Nir t Referred To Contact Diagnoses IPMN Procedures PRO PART REMV PANC, PROX+PART DUOD+ANAST @PANCREATECTOMY, WHIPPLE TYPE WITH PANCREATOJEJUNOSTOMY (WRVU 52.79) MODIFIER ROBOT,DAVINCI XI Referral ID Status Reason Start Date Expiration Date Visits Re quested Visits Authorized [id number] 1 1 Encounter Details Date Type Department Care Team (Late Contact Info) Description 03/20/2020 10:00 AM [facility] [place] [phone] COVID-19 ruled out Social History Tobacco Use [...] PM EDT Office Visit Hematology/Oncology at [address] [phone] Jeffery Sanz MD [facility] DR HEMATOLOGY [place] [address] Mary Nails APRN [address] [place] [address] [place] [address] 01/01/2025 2:30 PM EDT Infusion Hematology Oncology at [address] [phone] 01/14/2025 11:00 AM EDT Laboratory Appointment Lab [address] [place] [phone] 01/14/2025 1:[address] [place] [phone] Regino Carolina MD [facility] [place] [address] 01/14/2025 2:00 PM EDT Office [place] [phone] Regino Carolina MD [facility] [place] [address] documented as of this encounter Procedures Procedure Name Priority Date/Time Associated Diagnosis Comments COVID-19 PCR Routine 03/20/2020 10:57 AM EST COVID-19 ruled out documented in this encounter Results * COVID-19 PCR (03/20/2020 10:57 AM EST) SARS-CoV-2 RNA Not Detected Not Detected [facility] Comment: This result should be interpreted [...] diagnosis of COVID-19 is performed using the PT PAL SARS-CoV-2 Assay as authorized by the FDA Emergency Use Authorization (EUA). This EUA assay is intended for In-vitro Diagnostic (IVD) use with respiratory specimens such as nasopharyngeal swabs collected from individuals during the acute phase of infection. This assay is performed based on the instructions for use provided by [employer] and additional guidance provided by [facility] and FDA. Testing is performed in the [facility] [employer] [facility] [employer] [facility] within the Department of Pathology and Laboratory Medicine at [facility], certified under the Clinical Laboratory Improvement [...] fact sheets at the following FDA website: https://www.fda.gov/medical-devices/oxgzudwxonu-kmqatwb-4419-yyyzd-93-qjbyknjin- use-a boicmeflxolas-ymoilyy-vqjwnri/mqxja-fqudapxrgij-mrof SARS-CoV-2 RNA Source CREDIT INTERN Swab [facility] Nasopharyngeal swab (specimen) 03/20/2020 10:57 AM EST 03/20/2020 10:57 AM EST Comment:Symptoms->Asymptomat ic Narrative Resulting Agency Comment Spec In Lab Regino Carolina MD MOLECULAR ORDERABL ES Performing Organization Address City/State/[facility] Co de Phone Number [facility] [place] [address] documented in this encounter Visit Diagnoses Diagnosis COVID-19 ruled out documented in this encounter Care Teams University Internship Relationship Specialty Start Date End Date Zeny James APRN [address] [place] [address] PCP - General Family Medicine 09/23/19 documented as of this encounter
--- OUTSIDE RECORDS SUMMARY | 2024-05-10 14:58 | XMS_ITS | Encounter Summary ---
Author Organization [facility] [place] [address] Care Team Providers Care Bingo Clerk Name Role Phone Zeny James COUNTER FORMER Primary Care Provider [phone] Encounter Details Date Type Department Care Team (Late st Contact Info) Description 03/03/2020 [place] [phone] Neelam Jacinto Social History Tobacco Use Types [...] ASK: TRAVEL ???Have you travelled outside of [place] ([place], [place], [place], [place], [place], [place]) in the past 14 days??? 2. ASK: [...] Transfer patient to the Covid-19 Hotline Number ([phone]) for further instructions. If 'No' to all of the questions above Is this the first test for Covid 19 Yes If no, please list date of previous test, result, and type of test (Molecular, Antigen, Antibody orunknown): [place] in [place], [place] term or other residential facility No Employee or [...] patient. Ordering provider: Dr Carolina Testing Facility: [facility] Date of Testin/4 Time of Testin:00am Symptoms: no documented in this encounter Plan of Treatment Upcoming Encounters Date Type Department Care Team (Late st Contact Info) Description 01/01/2025 2:00 PM EDT Office Visit Hematology/Oncology at [address] [phone] Jeffery Sanz MD [facility] DR [place] [address] Mary Nails APRN [address] [place] [address] DR MEDICAL ONCOLOGY [place], [place] [address] 01/01/2025 2:30 PM EDT Infusion Hematology Oncology at [address] [phone] 01/14/2025 11:00 AM EDT Laboratory Appointment Lab 3[place] [phone] 01/14/2025 1:[address] [place] [phone] Regino Carolina MD [facility] [place] [place] [address] 01/14/2025 2:00 PM EDT Office [place] [address] Regino Carolina MD [facility] [place] [place] [address] documented as of this encounter Visit Diagnoses Not on filedocumented in this encounter Additional Health Concerns Infection Onset Date Last Indicated Resolved Time Rule Out C. difficile 04/08/2020 04/08/20202019 1:19 PM EST Rule Out C. difficile 04/08/2020 04/08/20202019 2:27 PM EST documented as of this encounter Care Teams Bingo Clerk Relationship Specialty Start Date End Date Zeny James APRN [address] [place] [address] [address] [place] [address] PCP - General Family Medicine 09/23/19 documented as of this encounter
--- OUTSIDE RECORDS SUMMARY | 2024-05-10 14:58 | XMS_ITS | Encounter Summary ---
Author Organization [facility] [place] [address] Care Team Providers Care Water Inspector Name Role Phone Zeny James APRN Primary Care Provider Encounter Details Date Type Department Care Team (Late Contact Info) Description 03/09/2020 [place]phone [place] [phone] Arline Verde RN Social History Tobacco Use [...] AM EST Patient is scheduled for a ipple with Dr. Carolina on 03/23/2020. He would [...] PM EDT Office Visit Hematology/Oncology at [address] [phone] Jeffery Sanz MD [facility] DR HEMATOLOGY [place] [address] Mary Nails APRN [address] [place] [address] DR MEDICAL ONCOLOGY [place], [place] [address] 01/01/2025 2:30 PM EDT Infusion Hematology Oncology at [address] [phone] 01/14/2025 11:00 AM EDT Laboratory Appointment Lab [address] [place] [phone] 01/14/2025 1:[address] [place] [phone] Regino Carolina MD [facility] [place] [address] 01/14/2025 2:00 PM EDT Office [place] [phone] Regino Carolina MD [facility] DR [place] [address] documented as of this encounter Visit Diagnoses Not on filedocumented in this encounter Care Teams Water Inspector Relationship Specialty Start Date End Date Zeny James APRN [address] [place] [address] [address] [place], [place] [address] PCP - General Family Medicine 09/23/19 documented as of this encounter
--- OUTSIDE RECORDS SUMMARY | 2024-05-10 14:59 | XMS_ITS | Encounter Summary ---
Author Organization [facility] [place] [address] Care Team Providers Care Panama Hat Smearer Name Role Phone Zeny James APRN Primary Care Provider Encounter Details Date Type Department Care Team (Late st Contact Info) Description 12/20/2019 12:10 PM EDT - 12/20/2019 2:30 PM EDT Surgery [facility] [place] [address] Kevin Rivera MD [facility] [place] [address] MASTECTOMY, SIMPLE, COMPLETE (WRVU 15) Social History [...] closest emergency room or call the hospital rubber vulcanizing machine operator at [phone] and ask for physician clinical rehab liaison covering for your physician. Questions or problems after 5pm or on a weekend: Call the [facility] rubber vulcanizing machine operator at and ask for the physician clinical rehab liaison covering for your doctor. At 11;15am you [...] arm until the drain is removed Call [phone] with any questions steristrips will fall off [...] daily and record output Call clinic at [phone] for drain removal when output less than [...] by mouth every other day. 10/25/2019 04/11/2020 ldgklr-kbtnqcon-alzpsl e DR (Ryan) 24,000-76,000 -120,000 unit Capsule, [...] discuss newly diagnosed left breast cancer (ER+, ID-, HER2-) diagnosed after abnormal screening mammogram. Of note, she has a history of MRM on the right in 2000. ?? Maricruz presented for screening mammogram in November,. This revealed a subtle focal asymmetry of the outer left breast, at approximately 3:00, 7 to 8 cm from the nipple measuring 1 cm. Call back imaging confirmed a suspicious finding and pathology revealed ER+, ID- , HER2- IDC. ?? 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 ??Her 7 years ago and she currently lives alone. ?She has adopted 3 sons who live in [place], [place] in [place] and 6 stepchildren. ??She drinks rarely. No [...] female with radiographic stage I IDC ER+, ID-, HER2-- IDC of the left breast.No symptomatic, [...] Rivera MD - 12/20/2019 1:35 PM EDT [facility] Operative Note Patient Name: Linda Serrano : [id number] MR#: [id number] Case Date: 12/20/2019 Surgeon: Surgeon(s) and Role: [...] was irrigated, hemostased, and closed over a 19-Mongolian Darius drain. Sterile dressings were applied. Infection Bundle used? N/A Attestation: Case Date: 12/20/2019 I performed this procedure without the involvement of a resident. KEVIN RIVERA MD 12/20/2019 documented in this encounter Plan of Treatment Upcoming Encounters Date Type Department Care Team (Late st Contact Info) Description 01/01/2025 2:00 PM EDT Office Visit Hematology/Oncology at [address] [phone] Jeffery Sanz MD [facility] [place] [address] Mary Nails APRN [address] [place] [address] [place] [address] 01/01/2025 2:30 PM EDT Infusion Hematology Oncology at [address] [phone] 01/14/2025 11:00 AM EDT Laboratory Appointment Lab [address] [address] 01/14/2025 1:[address] [place] [address] Regino Carolina MD [facility] [place] [address] 01/14/2025 2:00 PM EDT Office [place] [phone] Regino Carolina MD [facility] [place] [address] documented as of this encounter Procedures Procedure [...] 12/20/2019 11:45 AM EDT BREAST CANCER Intraop Mari[place] Lymph Id W/Dye Injection ([id number]) Yes 12/20/2019 11:45 AM EDT BREAST CANCER Bx/Remv, Lymph Node, Deep Axill ([id number]) Yes 12/20/2019 11:45 AM EDT BREAST CANCER Mastectomy, Simple, Complete ([id number]) Yes 12/20/2019 11:45 AM EDT BREAST CANCER documented in this encounter Results * SCAN DOC: ORDS - PROVIDER CARE (12/24/2019 12:00 AM EDT) Narrative 12/24/2019 12:00 AM EDT Ordered by an unspecified provider. Scanning Provider MEDIA MGR SCAN EXT O RDR/RSLT * Specimen to Pathology (12/20/2019 1:12 PM EDT) AP Specimen 12/20/2019 1:12 PM EDT 12/20/2019 1:12 PM EDT Narrative [facility] - 12/20/2019 1:12 PM EDT Specimen requisition ordered. ??Separate Pathology report to follow Kevin Rivera MD PATHOLOGY/CYTOLOGY ORDERABLES Performing Organization Address [facility] [place] [place] [address] * Specimen to Pathology (12/20/2019 12:45 PM EDT) AP Specimen 12/20/2019 12:4 5 PM EDT 12/20/2019 12:45 PM EDT Narrative [facility] - 12/20/2019 12:45 PM EDT Specimen requisition ordered. ??Separate Pathology report to follow Kevin Rivera MD PATHOLOGY/CYTOLOGY ORDERABLES Performing Organization Address [facility] [place] [address] * Specimen to Pathology (12/20/2019 12:35 PM EDT) AP Specimen 12/20/2019 12:3 5 PM EDT 12/20/2019 12:35 PM EDT Narrative [facility] - 12/20/2019 12:35 PM EDT Specimen requisition ordered. ??Separate Pathology report to follow Kevin Rivera MD PATHOLOGY/CYTOLOGY ORDERABLES Performing Organization Address [facility] [place] [address] * Surgical Pathology Report (12/20/2019 12:33 PM EDT) Final Diagnosis [id number] ? Location: [facility] The signing pathologist has (i) examined the relevant preparation(s) for the specimen(s) and (ii) rendered or confirmed the diagnosis(es). . ? Addendum ADDENDUM DISCUSSION SPECIAL TEST PERFORMED: Test: ??Oncotype DX [facility] Case: ??[id number], block A3 Performing Lab: ??[facility] Performing Lab Case: ??[id number] Reported by: ??Denzel Ellis MD Date reported: ??01/03/2020 For the full text of the [facility] report please refer to Non- Documentation Pathology in the electronic health record (eDH). Electronically signed by: ??Gila Mcneil DO Verified: ??01/06/2020 ?Pathologist Performed at: ??-[facility] Dept. of Pathology, [place], [place] ?Surgical Pathology DIAGNOSIS A - Left [...] Mcneil DO Verified: ??12/27/2019 ?Pathologist Performed at: ??-[facility] Dept. of Pathology, [place], [place] SYNOPTIC Specimen Parts: ??A-C Specimen ? [...] of Lymph Nodes Examined: ??2 ?Number of [place] Nodes Examined: ??2 Pathologic Stage Classification (pTNM, [...] superficial surface at periphery inked blue. Sections/Processing: Track Service Worker sections in 15 cassettes as follows: ?A1: ??Nipple ?A2: ??Base of nipple ?A3-A4: ??Lesion including deep margin, inked black ?A5-A6: ??Additional sections of lesion ?A7-A8: ??Track Service Worker upper inner quadrant ?A9-A10: ??Track Service Worker lower inner quadrant ?A11: ??Track Service Worker central ?A12-A13: ??Track Service Worker upper outer quadrant ?A14-A15: ??Track Service Worker lower outer quadrant Ischemic Time: 1.2 hours [...] submitted in 4 cassettes labeled C1-C4. ??PPS 01/06/2020 10:09 AM EDT [facility] BREAST STRUCTURE / Unknown 12/20/2019 12:33 PM EDT 12/20/2019 12:33 PM EDT SENTINEL LYMPH NODE / Unknown 12/20/2019 12:33 PM EDT 12/20/2019 12:33 PM EDT BREAST STRUCTURE / Unknown 12/20/2019 12:33 PM EDT 12/20/2019 12:33 PM EDT Kevin Rivera MD PATHOLOGY/CYTOLOGY ORDERABLES [facility] [place] [address] documented in this encounter Visit Diagnoses Not on filedocumented in this encounter Administered Medications Inactive Administered Medications - up to 3 most recent administrations Medication Order MAR Action Action Date Dose Rate Site acetaminophen (Tylenol) 500 mg tablet 1 dose, Starting on Mon12/20/19 at 1054, Until Mon12/20/19 at 1113, Ivelisse Don: amolinet override acetaminophen (Tylenol) tablet 1,000 mg 1,000 [...] Routine 1113 (Given - Provid er: Vannesa M Apodaca, RN) ceFAZolin (Ancef) 2 g in dextrose [...] Routine documented in this encounter Care Teams Panama Hat Smearer Relationship Specialty Start Date End Date Zeny James APRN [address] [place] [address] PCP - General Family Medicine 09/23/19 documented as of this encounter
--- OUTSIDE RECORDS SUMMARY | 2024-05-10 14:59 | XMS_ITS | Encounter Summary ---
Author Organization Formerly [facility] [place] [address] Care Team Providers Care Optics Manufacturing Technician Name Role Phone Zeny James APRN Primary Care Provider Encounter Details Date Type Department Care Team (Latest Contact Info) Description 12/20/2019 10:50 AM EDT - 12/20/2019 3:15 PM EDT Hospital Encounter [place] [address] Kevin Rivera MD [facility] [place] [address] Discharge Disposition: Home Social History Tobacco Use [...] closest emergency room or call the hospital film projector operator at [phone] and ask for physician director of publications covering for your physician. Questions or problems after 5pm or on a weekend: Call the [facility] film projector operator at and ask for the physician director of publications covering for your doctor. At 11;15am you [...] arm until the drain is removed Call [phone] with any questions steristrips will fall off [...] daily and record output Call clinic at [phone] for drain removal when output less than [...] by mouth every other day. 10/25/2019 04/11/2020 [id number] e DR (Ryan) 24,000-76,000 -120,000 unit Capsule, [...] discuss newly diagnosed left breast cancer (ER+, WV-, HER2-) diagnosed after abnormal screening mammogram. Of note, she has a history of MRM on the right in 2000. ?? Maricruz presented for screening mammogram in November,. This revealed a subtle focal asymmetry of the outer left breast, at approximately 3:00, 7 to 8 cm from the nipple measuring 1 cm. Call back imaging confirmed a suspicious finding and pathology revealed ER+, WV- , HER2- IDC. ?? 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 ??Her 7 years ago and she currently lives alone. ?She has adopted 3 sons who live in [place], [place] in [place] and 6 stepchildren. ??She drinks rarely. No [...] female with radiographic stage I IDC ER+, WV-, HER2-- IDC of the left breast.No symptomatic, [...] Rivera MD - 12/20/2019 1:35 PM EDT [facility] [place] Operative Note Patient Name: Linda Serrano : [id number] MR#: [id number] Case Date: 12/20/2019 Surgeon: Surgeon(s) and Role: [...] was irrigated, hemostased, and closed over a 19-Georgian Darius drain. Sterile dressings were applied. Infection Bundle used? N/A Attestation: Case Date: 12/20/2019 I performed this procedure without the involvement of a resident. KEVIN RIVERA MD 12/20/2019 documented in this encounter Plan of Treatment Upcoming Encounters Date Type Department Care Team (Late st Contact Info) Description 01/01/2025 2:00 PM EDT Office Visit Hematology/Oncology at [address] [phone] Jeffery Sanz MD [facility] DR HEMATOLOGY [place] [address] Mary Nails APRN [address] [place] [address] [place] [address] 01/01/2025 2:30 PM EDT Infusion Hematology Oncology at [address] [phone] 01/14/2025 11:00 AM EDT Laboratory Appointment Lab [address] [address] 01/14/2025 1:[address] [place] [address] Regino Carolina MD [facility] [place] [address] 01/14/2025 2:00 PM EDT Office [place] [address] Regino Carolina MD [facility] [place] [address] documented as of this encounter Procedures Procedure [...] 12/20/2019 11:45 AM EDT BREAST CANCER Intraop Cornish Lymph Id W/Dye Injection ([id number]) Yes 12/20/2019 11:45 AM EDT BREAST CANCER Bx/Remv, Lymph Node, Deep Axill ([id number]) Yes 12/20/2019 11:45 AM EDT BREAST CANCER Mastectomy, Simple, Complete ([id number]) Yes 12/20/2019 11:45 AM EDT BREAST CANCER documented in this encounter Results * SCAN DOC: ORDS - PROVIDER CARE (12/24/2019 12:00 AM EDT) Narrative 12/24/2019 12:00 AM EDT Ordered by an unspecified provider. Scanning Provider MEDIA MGR SCAN EXT O RDR/RSLT * Specimen to Pathology (12/20/2019 1:12 PM EDT) AP Specimen 12/20/2019 1:12 PM EDT 12/20/2019 1:12 PM EDT Narrative [facility] - 12/20/2019 1:12 PM EDT Specimen requisition ordered. ??Separate Pathology report to follow Kevin Rivera MD PATHOLOGY/CYTOLOGY ORDERABLES Performing Organization Address [facility] [place] [address] * Specimen to Pathology (12/20/2019 12:45 PM EDT) AP Specimen 12/20/2019 12:4 5 PM EDT 12/20/2019 12:45 PM EDT Narrative [facility] - 12/20/2019 12:45 PM EDT Specimen requisition ordered. ??Separate Pathology report to follow Kevin Rivera MD PATHOLOGY/CYTOLOGY ORDERABLES Performing Organization Address [facility] [place] [address] * Specimen to Pathology (12/20/2019 12:35 PM EDT) AP Specimen 12/20/2019 12:3 5 PM EDT 12/20/2019 12:35 PM EDT Narrative [facility] - 12/20/2019 12:35 PM EDT Specimen requisition ordered. ??Separate Pathology report to follow Kevin Rivera MD PATHOLOGY/CYTOLOGY ORDERABLES Performing Organization Address [facility] [place] [address] * Surgical Pathology Report (12/20/2019 12:33 PM EDT) Final Diagnosis [id number] ? Location: [facility] The signing pathologist has (i) examined the relevant preparation(s) for the specimen(s) and (ii) rendered or confirmed the diagnosis(es). . ? Addendum ADDENDUM DISCUSSION SPECIAL TEST PERFORMED: Test: ??Oncotype DX [facility] [place] [place] Case: ??[id number], block A3 Performing Lab: ??naaptol Performing Lab Case: ??[id number] Reported by: ??Denzel Ellis MD Date reported: ??01/03/2020 For the full text of the naaptol report please refer to Non- Documentation Pathology in the electronic health record (eDH). Electronically signed by: ??Gila Mcneil DO Verified: ??01/06/2020 ?Pathologist Performed at: ??-[facility] [place] [place] Dept. of Pathology, [place], [place] ?Surgical Pathology DIAGNOSIS A - Left [...] Mcneil DO Verified: ??12/27/2019 ?Pathologist Performed at: ??-[facility] [place] [place] Dept. of Pathology, [place], [place] SYNOPTIC Specimen Parts: ??A-C Specimen ? [...] of Lymph Nodes Examined: ??2 ?Number of Cornish Nodes Examined: ??2 Pathologic Stage Classification (pTNM, [...] superficial surface at periphery inked blue. Sections/Processing: Crew Foreman sections in 15 cassettes as follows: ?A1: ??Nipple ?A2: ??Base of nipple ?A3-A4: ??Lesion including deep margin, inked black ?A5-A6: ??Additional sections of lesion ?A7-A8: ??Crew Foreman upper inner quadrant ?A9-A10: ??Crew Foreman lower inner quadrant ?A11: ??Crew Foreman central ?A12-A13: ??Crew Foreman upper outer quadrant ?A14-A15: ??Crew Foreman lower outer quadrant Ischemic Time: 1.2 hours [...] labeled C1-C4. ??PPS 01/06/2020 10:09 AM EDT [facility] BREAST STRUCTURE / Unknown 12/20/2019 12:33 PM EDT 12/20/2019 12:33 PM EDT SENTINEL LYMPH NODE / Unknown 12/20/2019 12:33 PM EDT 12/20/2019 12:33 PM EDT BREAST STRUCTURE / Unknown 12/20/2019 12:33 PM EDT 12/20/2019 12:33 PM EDT Kevin Rivera MD PATHOLOGY/[place] [address] documented in this encounter Visit Diagnoses Not on filedocumented in this encounter Administered Medications Inactive Administered Medications - up to 3 most recent administrations Medication Order MAR Action Action Date Dose Rate Site acetaminophen (Tylenol) 500 mg tablet 1 dose, Starting on Mon12/20/19 at 1054, Until Mon12/20/19 at 1113, Ivelisse Don: cabinet override acetaminophen (Tylenol) tablet 1,000 mg [...] Routine documented in this encounter Care Teams Optics Manufacturing Technician Relationship Specialty Start Date End Date Zeny James APRN [address] [place] [address] PCP - General Family Medicine 09/23/19 documented as of this encounter
--- OUTSIDE RECORDS SUMMARY | 2024-05-10 14:59 | XMS_ITS | Encounter Summary ---
[place] [address] Care Team Providers Care Naprapath Name Role Phone Zeny James APRN Primary Care Provider Reason for Referral * Diagnostic Test (Routine) - Closed Specialty Diagnoses / Procedures Referred By Nir potts Referred To Contact Radiology Diagnoses Malignant neoplasm of upper-outer quadrant of left breast in female, estrogen receptor positive Procedures NM Ruskin Node Injection Breast wo Imaging Susan Rivera MD [facility] [place] [address] [place] [address] Referral ID Status Reason Start Date Expiration Date V isits Requested Visits Authorized [id number] Closed Specialty Service Requested 12/18/2019 06/16/2021 1 1 Encounter Details Date Type Department Care Team (Late st Contact Info) Description 12/18/2019 Orders Only [place] [address] Susan Rivera MD [facility] [place] [address] Malignant neoplasm of upper-outer quadrant [...] PM EDT Office Visit Hematology/Oncology at [address] [phone] Jeffery Sanz MD [facility] DR HEMATOLOGY [place] [address] Mary Nails APRN [address] [place] [address] [place] [address] 01/01/2025 2:30 PM EDT Infusion Hematology Oncology at [address] [phone] 01/14/2025 11:00 AM EDT Laboratory Appointment Lab [address] [phone] 01/14/2025 1:[address] [place] [phone] Regino Carolina MD [facility] [place] [address] 01/14/2025 2:00 PM EDT Office Visit [place] [phone] Regino Carolina MD [facility] [place] [address] documented as of this encounter Results * NM Ruskin Node Injection Breast wo Imaging (12/20/2019 10:26 AM EDT) Anatomical Region Laterality Modality Nuclear Medicine Impressions 12/20/2019 11:24 AM EDT Ruskin node injections performed without complication. Thank you for letting us participate in the care of this patient. For questions regarding this report, please contact the number below. ? Electronically signed by: Guido Choudhary [facility] ([phone]), at 12/20/2019 11:24 AM Narrative 12/20/2019 11:24 AM EDT EXAMINATION: NM [...] patient left the department ingood condition. IMPRESSION Ruskin node injections performed without complication. Thank you for letting us participate in the care of this patient. Forquestions regarding this report, please contact the number below. Electronically signed by: MARY GRACE Berg [facility]([phone]), at 12/20/2019 11:24 AM Susan Rivera MD [facility] [place] ORDERABLES documented in this encounter Visit Diagnoses Diagnosis Malignant neoplasm of upper-outer quadrant of left breast in female, estrogen receptor positive Malignant neoplasm of upper-outer quadrant of left breast in female, estrogen receptor positive documented in this encounter Care Teams Naprapath Relationship Specialty Start Date End Date Zeny James APRN [address] [place] [address] [address] [place] [address] PCP - General Family Medicine 09/23/19 documented as of this encounter
--- OUTSIDE RECORDS SUMMARY | 2024-05-10 14:59 | XMS_ITS | Encounter Summary ---
Author Organization Formerly [facility] [place] [address] Care Team Providers Care Production Sound Mixer Name Role Phone Zeny James APRN Primary Care Provider Encounter Details Date Type Department Care Team (Latest Contact Info) Description 12/05/2019 12:33 PM EDT - 12/05/2019 1:30 PM EDT Hospital [place] [address] Rob Gleason MD Abnormal finding on breast imaging Discharge Disposition: [...] by mouth every other day. 10/25/2019 04/11/[address] [id number] e DR (Creon) 24,000-76,000 -120,000 unit Capsule, [...] 2:00 PM EDT Office Visit Hematology/Oncology at [address] [phone] Jeffery Sanz MD [facility] [place] [address] Mary Nails APRN [address] [place] [address] DR MEDICAL ONCOLOGY [place], [place] [id number] 01/01/2025 2:30 PM EDT Infusion Hematology Oncology at [address] [phone] 01/14/2025 11:00 AM EDT Laboratory Appointment Lab [address] [phone] 01/14/2025 1:[address] [place] [place] [address] Regino Carolina MD [facility] [place] [address] 01/14/2025 2:00 PM EDT Office [place] [address] Regino Ramires MD [facility] [place] [place] [address] documented as of this encounter Procedures Procedure [...] breast documented in this encounter Care Teams Production Sound Mixer Relationship Specialty Start Date End Date Zeny James APRN [address] [place] [address] PCP - General Family Medicine 09/23/19 documented as of this encounter
--- OUTSIDE RECORDS SUMMARY | 2024-05-10 14:59 | XMS_ITS | Encounter Summary ---
Author Organization [facility] [place] [address] Care Team Providers Care Molder Hand Name Role Phone Zeny James JESUS ALBERTO Primary Care Provider Encounter Details Date Type Department Care Team (Late Contact Info) Description 12/10/2019 Orders [place] [address] Susan Rivera MD [facility] [place] [address] Malignant neoplasm of left breast in female, [...] PM EDT Office Visit Hematology/Oncology at [address] [phone] Jeffery Sanz MD [facility] DR HEMATOLOGY [place] [address] Mary Nails APRN [address] [place] [address] DR MEDICAL ONCOLOGY [place], [place] [id number] 01/01/2025 2:30 PM EDT Infusion Hematology Oncology at [address] [place] [address] 01/14/2025 11:00 AM EDT Laboratory Appointment Lab [address] [address] 01/14/2025 1:[address] [place] [phone] Regino Carolina MD [facility] [place] [address] 01/14/2025 2:00 PM EDT Office Visit [place] [phone] Regino Carolina MD [facility] [place] [address] documented as of this encounter Visit Diagnoses Diagnosis Malignant neoplasm of left breast in female, estrogen receptor positive, unspecified site of breast documented in this encounter Care Teams Molder Hand Relationship Specialty Start Date End Date Zeny James APRN [address] [place] [address] PCP - General Family Medicine 09/23/19 documented as of this encounter
--- OUTSIDE RECORDS SUMMARY | 2024-05-10 14:59 | XMS_ITS | Encounter Summary ---
[place] [address] Care Team Providers Care Piling Setter Name Role Phone Zeny James JESUS ALBERTO Primary Care Provider Reason for Referral * Diagnostic Test (Routine) - Closed Specialty Diagnoses / Procedures Referred By Contac t Referred To Contact Radiology Diagnoses Malignant neoplasm of upper-outer quadrant of left breast in female, estrogen receptor positive Procedures NM High Point Node Injection Breast wo Susan Stephens MD [facility] [place] [address] [place] [address] Referral ID Status Reason Start Date Expiration Date V isits Requested Visits Authorized [id number] Closed Specialty Service Requested 12/18/2019 06/16/2021 1 1 Reason for Visit * Diagnostic Test (Routine) - Closed Specialty Diagnoses / Procedures Referred By Contac t Referred To Contact Radiology Diagnoses Malignant neoplasm of upper-outer quadrant of left breast in female, estrogen receptor positive Procedures NM [place] Node Injection Breast wo Susan Stephens MD [facility] [place] [address] [place] [address] Referral ID Status Reason Start Date Expiration Date V isits Requested Visits Authorized [id number] Closed Specialty Service Requested 12/18/2019 06/16/2021 1 1 Encounter Details Date Type Department Care Team (Latest Contact Info) Description 12/20/2019 9:54 AM EDT - 12/20/2019 10:49 AM EDT Hospital Encounter [place] [phone] Susan Rivera MD [facility] [place] [address] Malignant neoplasm of upper-outer quadrant of left [...] by mouth every other day. 10/25/2019 04/11/2020 [id number] e (Ryan) 24,000-76,000 -120,000 unit Capsule, Delayed [...] PM EDT Office Visit Hematology/Oncology at [address] [phone] Jeffery Sanz MD [facility] DR HEMATOLOGY [place] [address] Mary Nails APRN [address] [place] [address] [place] [address] 01/01/2025 2:30 PM EDT Infusion Hematology Oncology at [address] [phone] 01/14/2025 11:00 AM EDT Laboratory Appointment Lab [address] [phone] 01/14/2025 1:[address] [place] [phone] Regino Carolina MD [facility] [place] [address] 01/14/2025 2:00 PM EDT Office [place] [phone] Regino Carolina MD [facility] [place] [address] documented as of this encounter Procedures Procedure Name Priority Date/Time Associated Diagnosis Comments NM SENTINEL NODE INJECTION BREAST WITHOUT IMAGING Routine 12/20/2019 10:26 AM EDT Malignant neoplasm of upper-outer quadrant of left breast in female, estrogen receptor positive documented in this encounter Results * NM High Point Node Injection Breast wo Imaging (12/20/2019 10:26 AM EDT) Anatomical Region Laterality Modality Nuclear Medicine Impressions 12/20/2019 11:24 AM EDT High Point node injections performed without complication. Thank you [...] patient left the department ingood condition. IMPRESSION High Point node injections performed without complication. Thank you for letting us participate in the care of this patient. Forquestions regarding this report, please contact the number below. Electronically signed by: MARY GRACE Berg [facility]([phone]), at 12/20/2019 11:24 AM Susan Rivera MD [...] mCi documented in this encounter Care Teams Piling Setter Relationship Specialty Start Date End Date Zeny James, JESUS ALBERTO [address] [place] [address] PCP - General Family Medicine 09/23/19 documented as of this encounter
--- OUTSIDE RECORDS SUMMARY | 2024-05-10 14:59 | XMS_ITS | Encounter Summary ---
[place] [address] Care Team Providers Care Medical Record Assistant Name Role Phone Zeny James APRN Primary Care Provider Reason for Referral * Diagnostic Test (Routine) - Closed Specialty Diagnoses / Procedures Referred By Nir potts Referred To Contact Radiology Diagnoses Malignant neoplasm of pancreatic duct Procedures CT Abdomen w Contrast Regino Carolina MD [facility] [place] [address] [facility] [place] [address] Referral ID Status Reason Start Date Expiration Date V isits Requested Visits Authorized [id number] Closed Specialty Service Requested 12/09/2019 06/10/2021 1 1 Reason for Visit * Reason Comments Follow-up Encounter Details Date Type Department Care Team (Late st Contact Info) Description 12/09/2019 2:30 PM EDT Office Visit [place] [address] Regino Carolina MD [facility] [place] [address] Malignant neoplasm of pancreatic duct [...] Serrano is a 74 year woman from [place], [place]. She presentedto [facility] ED on 2019 with epigastric [...] of pancreatic duct/cyst fluid cytopathology per Acc# [id number] showed neoplastic Cells Present. Abundant macrophages, mixed leukocytes present and a single group of bland-appearing columnar cells. ??Cell block was examined. Note: The fluid CEA level is consistent with neoplastic process. 11/25/2019 surgical oncology consult. Maricruz was seen for surgery consultation. She was by herself. She described the episode that brought her to the ED at [facility] as the first time she [...] A comprehensive ROS questionnaire (scanned into [facility]) was completed by the patient - pertinent surgical related findings are summarized below. All other systems on the questionnaire were reviewed and were negative. She has never had any heart attack or chest pain symptoms. She is very active with housework, yard work and walking every day with her friends. 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 Her 7 years ago and she currently lives alone. Her stepdaughter Sienna lives nearby. She has 3 sons who live [place] and 6 stepchildren who she is very [...] cancer. Medications: 1. Tylenol as needed 2. Drn-lbl-eakgaynsv sulfate inhaler 2 puffs twice daily 3. Aspirin 81 mg daily 4. Calcium carbonate vitamin D3 600/15 100/800 unit tablet-1 tablet daily. 5. Cholecalciferol 25 mcg (1000 units) daily 6. Fluticasone 500 mcg Solu-Medrol 50 mcg inhaler twice daily 7. Flonase 2 sprays intranasally as needed 8. Magnesium oxide 4 mg daily 9. Multivitamin Centrum Silver women 10. Windsor-3 1000 mg fish oil capsule daily 11. [...] metastases ? TECHNIQUE: Following IV injection of 93-ivyvyw-6-deoxyglucose (FDG) a standard uptake of approximately 60 minutes, a noncontrast CT scan followed by a PET scan were acquired from the base of the skull to mid thighs. The noncontrast CT was used for anatomic localization and photon attenuation correction of the PET scan. ?? Blood glucose level: 91 (mg/dL) ?? FDG dose: 10.5 mCi ?? COMPARISON: Abdomen CT performed at [facility] on 2019 ?? FINDINGS: ?? HEAD/NECK: [...] into the clinic today accompanied by her qurpzd-Uzzgkmk-epd is an RN up in [place]. She really seems to be doing well [...] 2:48 PM This note was created using [employer]) voice recognition software. documented in this encounter Plan of Treatment Upcoming Encounters Date Type Department Care Team (Late st Contact Info) Description 01/01/2025 2:00 PM EDT Office Visit Hematology/Oncology at [address] [phone] Jeffery Sanz MD [facility] DR [place] [address] Mary Nails APRN [address] [place] [address] DR MEDICAL ONCOLOGY [place], [place] [id number] 01/01/2025 2:30 PM EDT Infusion Hematology Oncology at [address] [phone] 01/14/2025 11:00 AM EDT Laboratory Appointment Lab [address] [place] [phone] 01/14/2025 1:[address] [place] [phone] Regino Carolina MD [facility] [place] [address] 01/14/2025 2:00 PM EDT Office [place] [phone] Regino Carolina MD [facility] [place] [address] Scheduled Orders Name Type Priority Associated Diagnoses [...] ? Electronically signed by: Donn Springer DO, [facility] ([phone]), at 01/28/2020 3:45 PM Narrative 01/28/2020 3:45 [...] No suspicious lesions. Procedure Note Donn Springer, DO - 01/28/2020 EXAMINATION: CT ABDOMEN W [...] resident's interpretationand agree with the findings, Donn pSringer DO at 01/28/2020 3:45 PM Thank you for letting us participate in the care of this patient. Forquestions regarding this report, please contact the number below. Regino Carolina MD IMG CT ORDERABLES * Carbohydrate Antigen 19-9 (01/09/2020 9:45 AM EDT) CA 19-9 24.6 <=35.0 u/ml [facility] Blood specimen (specimen) 01/09/2020 9:45 AM EDT 01/09/2020 10:00 AM EDT Narrative Resulting Agency Comment Spec In Lab Regino Carolina MD CHEMISTRY ORDERABL ES [facility] [place] [address] documented in this encounter Visit Diagnoses Diagnosis Malignant neoplasm of pancreatic duct Malignant neoplasm of pancreatic duct documented in this encounter Care Teams Medical Record Assistant Relationship Specialty Start Date End Date Zeny James APRN [address] [place] [address] [address] [place] [address] PCP - General Family Medicine 09/23/19 documented as of this encounter
--- OUTSIDE RECORDS SUMMARY | 2024-05-10 14:59 | XMS_ITS | Encounter Summary ---
Author Organization [facility] Address [facility] [place] [address] Care Team Providers Care Bankman Name Role Phone Zeyn James APRN Primary Care Provider Encounter Details Date Type Department Care Team (Late st Contact Info) Description 11/15/2019 1:00 PM EDT - 11/15/2019 2:15 PM EDT [place] [address] Ralf Urrutia MD [facility] [place] [address] UPPER EUS- ENDOSCOPIC ULTRASOUND (WRVU 3.47) Social [...] Care Everywhere. * Ultrasound: Endoscopic (Oral): Post-op (Zambian) documented in this encounter Medications at Time [...] 2 10/11/2016 11/25/2019 desonide (DESOWEN) 0.05 % CreamIndications:[place]hill titis,Seborrheic dermatitis Once daily to the forehead [...] Urrutia MD - 11/15/2019 12:44 PM EDT [facility] Operative Note Patient Name: Linda Serrano : [id number] MR#: [id number] Case Date: 11/15/2019 Surgeon: Surgeon(s) and Role: [...] PM EDT Office Visit Hematology/Oncology at [address] [phone] Jeffery Sanz MD [facility] [place] [address] Mary Nails SURGICAL RN [address] [place] [address] DR MEDICAL ONCOLOGY [place], [place] [phone] 01/01/2025 2:30 PM EDT Infusion Hematology Oncology at [address] [phone] 01/14/2025 11:00 AM EDT Laboratory Appointment Lab [address] [phone] 01/14/2025 1:[address] [place] [phone] Regino Carolina MD [facility] [place] [address] 01/14/2025 2:00 PM EDT Office [place] [phone] Regino Carolina MD [facility] [place] [address] Pending Results Name Type Priority Associated Diagnoses Date /Time XR ERCP Imaging Storage Only Routine 10/17 12:11 PM EDT Scheduled Orders Name Type Priority Associated Diagnoses Orde r Schedule XR ERCP Imaging Storage Only Routine Once PRN (for Radiant use) for 1 Occurrences starting 11/15/2019 until 11/15/2019 documented as of this encounter Procedures Procedure Name Priority Date/Time Associated Diagnosis Comments NON-JOURNALISM TEACHER FINAL REPORT Routine 11/15/2019 12:44 PM EDT HC CARCINO-EMBRYONIC AG ASSAY Routine 11/15/2019 12:44 PM EDT HC AMYLASE Routine 11/15/2019 12:44 PM EDT CYTOPATHOLOGY NON-GYNECOLOGICAL Routine 11/15/2019 12:44 PM EDT Endoscopic Us Exam, Esoph ([id number]) 11/15/2019 12:09 PM EDT Other chronic pancreatitis Please schedule this patient with me for eus and ercp in the next 3 weeks - 90min with anesthesia okay to use consult time=. UPPER EUS-ENDOSCOPIC ULTRASOUND Routine 11/15/2019 12:07 PM EDT documented in this encounter Results * Non-Helminthologist Final Report (11/15/2019 12:44 PM EDT) Diagnosis Discussion [id number] ? Location: ; EA; A The signing pathologist has (i) examined the relevant preparation(s) for the specimen(s) and (ii) rendered or confirmed the diagnosis(es). . ? Non-Helminthologist Final DIAGNOSIS Neoplastic Cells Present See discussion. Electronically signed by: ??Linda CLANCY PhD, Heath Martinez Verified: ??11/18/2019 ?Pathologist Performed at: ??-[facility] Dept. of Pathology, [place], [place] DISCUSSION Pancreas (EUS-guided FNA): Abundant macrophages, [...] Preparation: Liquid-Based Prep 1; Cell Block 1. 11/18/2019 3:13 PM EDT [facility] PANCREATIC STRUCTURE / Unknown 11/15/2019 12:44 PM EDT 11/15/2019 12:44 PM EDT Ralf Urrutia MD PATHOLOGY/CYTOLOGY O RDERABLES [facility] [place] [address] * Amylase Level Body Fluid Pancreatic Cyst (11/15/2019 12:44 PM EDT) Amylase, Fluid 783 unit/L [facility] Comment: No reference range is available for the specimen type submitted. ??The performance of this assay for the submitted type has not been validated and results should be interpreted accordingly and with regard to the patient's clinical status. Amylase BF Type Pancreatic cyst [facility] Pancreas cyst fluid specimen (specimen) 11/15/2019 12:44 PM EDT 11/15/2019 1:56 PM EDT Narrative Resulting Agency Comment Spec In Lab Ralf Urrutia MD BODY FLUIDS AND STOO LS ORDERABLES [facility] [place] [address] * CEA Body Fluid Pancreatic Cyst (11/15/2019 12:44 PM EDT) Carcinoembroyonic Antigen, Fluid 691.0 ng/mL [facility] Comment: No reference range is available for the specimen type submitted. ??The performance of this assay for the submitted type has not been validated and results should be interpreted accordingly and with regard to the patient's clinical status. CEA BF Type Pancreatic cyst [facility] Pancreas cyst fluid specimen (specimen) 11/15/2019 12:44 PM EDT 11/15/2019 1:56 PM EDT Narrative Resulting Agency Comment Spec In Lab Ralf Urrutia MD BODY FLUIDS AND STOO LS ORDERABLES Performing Organization Address City/[facility]/ZIP Co de Phone Number [facility] [place] [place] [address] * Cytopathology Non-Gynecological (11/15/2019 12:44 PM EDT) AP Specimen 11/15/2019 12:4 4 PM EDT 11/15/2019 12:44 PM EDT Narrative [facility] - 11/15/2019 12:44 PM EDT Specimen requisition ordered. ??Separate Pathology report to follow Ralf Urrutia MD PATHOLOGY/CYTOLOGY O RDERABLES Performing Organization Address City/[facility]/ZIP [place] [address] * UPPER EUS-ENDOSCOPIC ULTRASOUND (11/15/2019 12:07 PM EDT) UPPER ENDOSCOPIC ULTRASOUND [facility] Endoscopy Procedure Date: 11/15/2019 12:07 PM ? Patient Name: Linda Serrano ? Date of : 1945 ? Age: 74 ? Order #: [id number] ? Instrument Name: [id number] Banner ? Procedure: ? Upper EUS Indications: ? Suspected solid pancreatic neoplasm, ? Suspected cystic pancreatic neoplasm Providers: ? Dino Le, ? Gina MADISON Referring MD: ? Medicines: [...] Procedure Code(s): ?? --- Professional --- ? 52028, Esophagogastroduod enoscopy, ? flexible, transoral; with ? [...] of ? digestive tract CPT copyright 2019 [employer]. All rights reserved. The codes documented in this report are preliminary and upon marine engineering professor review may be revised to meet current compliance requirements. Attending Participation: ? I personally performed the entire procedure. ? Ralf Aldrich Renan, 11/15/2019 12:52:46 PM Number of Addenda: 0 [...] CRNA) documented in this encounter Care Teams Bankman Relationship Specialty Start Date End Date Zeny James APRN [address] [place] [address] PCP - General Family Medicine 09/23/19 documented as of this encounter
--- OUTSIDE RECORDS SUMMARY | 2024-05-10 14:59 | XMS_ITS | Encounter Summary ---
Author Organization [facility] [place] [address] Care Team Providers Care Internal Carver Name Role Phone JairoZeny bentley JESUS ALBERTO Primary Care Provider Reason for Visit * Reason Comments Advice Only * Consultation (Routine) - Closed Specialty Diagnoses / Procedures Referred By Nir potts Referred To Contact Surgical Oncology / Hematology and Oncology Diagnoses Breast cancer [facility] (CT) Procedures [facility] Zeny James APRN [address] [place] [address] Susan Rivera MD [facility] [place] [address] Referral ID Status Reason Start Date Expiration Date Visits Re quested Visits Authorized [id number] Closed 12/18/2019 12/17/2020 1 1 Encounter Details Date Type Department Care Team (Late st Contact Info) Description 12/18/2019 10:00 AM EDT Office Visit [place] [phone] Susan Rivera MD [facility] [place] [address] Malignant neoplasm of upper-outer quadrant of left [...] to discuss newly diagnosed left breast cancer (ER+,MA-, HER2-) diagnosed after abnormal screening mammogram. Of note, she has a history of MRM on the right in 2000. Maricruz presented for screening mammogram in November,. This revealed a subtle focal asymmetry of the outer left breast, at approximately 3:00, 7 to 8 cm from the nipple measuring 1 cm. Call back imaging confirmed a suspicious finding and pathology revealed ER+, MA- , HER2- IDC. 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 Her 7 years ago and she currently lives alone. She has adopted 3 sons who live in [place], [place] in [place] and 6 stepchildren. She drinks rarely. No [...] female with radiographic stage I IDC ER+, MA-, HER2-- IDC of the left breast.No symptomatic, [...] 2:00 PM EDT Office Visit Hematology/Oncology at [address] [phone] Jeffery Sanz MD [facility] [place] [address] Mary Nails APRN [address] [place] [address] DR MEDICAL ONCOLOGY [place], [place] [phone] 01/01/2025 2:30 PM EDT Infusion Hematology Oncology at [address] [phone] 01/14/2025 11:00 AM EDT Laboratory Appointment Lab [place] [phone] 01/14/2025 1:[address] [place] [place] [phone] Regino Carolina MD [facility] [place] [address] 01/14/2025 2:00 PM EDT Office [place] [phone] Regino Carolina MD [facility] [place] [address] documented as of this encounter Procedures Procedure [...] positive documented in this encounter Care Teams Internal Carver Relationship Specialty Start Date End Date Erika JESUS ALBERTO Moura [address] [place] [address] PCP - General Family Medicine 09/23/19 documented as of this encounter
--- OUTSIDE RECORDS SUMMARY | 2024-05-10 14:59 | XMS_ITS | Encounter Summary ---
Author Organization [facility] [place] [address] Care Team Providers Care Usability Engineer Name Role Phone Zeny James APRN Primary Care Provider Encounter Details Date Type Department Care Team (Late st Contact Info) Description 12/20/2019 11:42 AM EDT Anesthesia Event [place] [address] Elton Mane MD [facility] DR [place] [address] Lili Colon [facility] [place] [address] Anesthesia Record Procedure Summary Procedure Name Responsible [...] 1137; median vein (underside of arm), left; bxuh-ppa-vssunq catheter system; 22 gauge; [place]; intradermal injection; 2; 12/20/19; 1502 12/20/19 1137 by Vannesa Apodaca, RN 12/20/19 1502 by Elton Hubbard Supraglottic Mask Ventilation: No t Attempted (0); LMA Type: iGel; LMA Size: 3; Inserted by: Darline ANAND; Removal Date: 12/20/19; Removal Time: 1333 12/20/19 1150 by Felicity Gregorio CRNA 12/20/19 1333 [...] Procedure Summary Date: 12/20/19 Room / Location: [facility] [address] [place] [address] Anesthesia Start: 1142 Anesthesia Stop: 1343 Procedures: [...] All Anesthesia Providers: Anesthesiologist: Elton Mane MD APPRENTICE EMBALMER: Felicity Gregorio CRNA Vitals Value Taken Time BP 153/73 12/20/19 1404 Temp 36 ??C (96.8 ??F) 12/20/19 1338 Pulse 70 12/20/19 1407 Resp 18 12/20/19 1404 SpO2 98 % 12/20/19 1407 Pain Level 2 12/20/19 1400 Vitals shown include unvalidated device data. Patient Location: PACU/[facility] Level of Consciousness: Awake and Alert Pain [...] and mask, cap, sterile gloves, hand hygeine W-efxdd-whind 21 10 cm Ultrasound Guided: YES and [...] 11:24 AM EDT Pre-Anesthesia Evaluation for: Linda Serrano a 74 y.o. female. Procedure(s): MASTECTOMY, SIMPLE, COMPLETE (WRVU 15.85) BIOPSY OR EXCISION OF LYMPH NODE(S), OPEN, DEEP AXILLARY NODE(S) (WRVU 6.43) INTRAOPERATIVE ID (MAPPING) SENTINEL LYMPH NODE,INCLUDES INJECTION (WRVU 2.5) MODIFIER SENTINEL NODE EXCISION Patient Active Problem List Diagnosis ??? Malignant neoplasm of left breast in female, estrogen receptor positive Dx: 12/05/19 [facility] ??? IPMN (intraductal papillary mucinous neoplasm) ??? [...] specimens had focally suggestive angiolymphatic invasion. ER-pos; [place]-neg; HER2=2+. 02/06/01: R MRM/ax dissection. On path, [...] Diagnosis Date ??? Basal cell carcinoma 2009 SB-back ??? Breast cancer Past Surgical History: Procedure Laterality Date ??? CREATED BY INTERFACE BREAST BIOPSY / RT/MULTIPLE Procedure Date: 01/23/2001 ??? CREATED BY INTERFACE COLONOSCOPY (ENDO) Procedure Date: 12/24/2003 ??? CREATED BY INTERFACE Entered not Verified Procedure Date: 01/22/2010 ??? CREATED BY INTERFACE MODIFIED RADICAL MASTECTOMY / RT Procedure Date: 02/06/2001 ??? MAMMO STEREOTACTIC BIOPSY LEFT N/A 12/05/2019 Mammo Stereotactic Biopsy Left 12/05/2019 [facility] RAD MAMMOGRAPHY ??? MASTECTOMY Right with RT ??? PRO COLONOSCOPY, DIAGNOSTIC 01/07/2014 COLONOSCOPY, DIAGNOSTIC performed by Izzy Johnson MD at [facility] ENDOSCOPY ??? PRO ENDOSCOPIC US EXAM, ESOPH N/A 11/15/2019 UPPER EUS- ENDOSCOPIC ULTRASOUND performed by Ralf Urrutia MD at [facility] ENDOSCOPY Social History Tobacco Use ??? [...] risks discussed with patient. Plan discussed with APPRENTICE EMBALMER. PAT Clinic Note documented in this encounter Plan of Treatment Upcoming Encounters Date Type Department Care Team (Late st Contact Info) Description 01/01/2025 2:00 PM EDT Office Visit Hematology/Oncology at [address] [phone] Jeffery Sanz MD [facility] DR HEMATOLOGY [place] [address] Mary Nails APRN [address] [place] [address] [place] [address] 01/01/2025 2:30 PM EDT Infusion Hematology Oncology at [address] [phone] 01/14/2025 11:00 AM EDT Laboratory Appointment Lab [place] [address] 01/14/2025 1:[address] [place] [phone] Regino Carolina MD [facility] [place] [address] 01/14/2025 2:00 PM EDT Office [place] [address] Regino Carolina MD [facility] [place] [address] documented as of this encounter Procedures Procedure [...] and mask, cap, sterile gloves, hand hygeine W-roklj-pftjh 21 10 cm Ultrasound Guided: ??YES and [...] ml's PEC 1 plane Elton Mane MD CORPORATE TRAVEL COORDINATOR [facility] documented in this encounter Visit Diagnoses [...] mL/hr documented in this encounter Care Teams Usability Engineer Relationship Specialty Start Date End Date Zeny James, JESUS ALBERTO [address] [place] [address] PCP - General Family Medicine 09/23/19 documented as of this encounter
--- OUTSIDE RECORDS SUMMARY | 2024-05-10 14:59 | XMS_ITS | Encounter Summary ---
Author Organization [facility] Address [facility] [place] [address] Care Team Providers Care Forest Fire Equipment Operator Name Role Phone Zeny James APRN Primary Care Provider Encounter Details Date Type Department Care Team (Latest Contact Info) Description 12/05/2019 1:31 PM EDT - 12/05/2019 2:28 PM EDT Hospital En[place] [address] China Ramirez MD [facility] [place] [address] Abnormal finding on breast imaging Discharge Disposition: [...] by mouth every other day. 10/25/2019 04/11/2020 [id number] e (Ryan) 24,000-76,000 -120,000 unit Capsule, Delayed [...] Delayed Release(E.C.), , Disp: , Rfl: ??? [id number] DR [place]) 24,000-76,000 -120,000 unit Capsule, Delayed [...] 2:00 PM EDT Office Visit Hematology/Oncology at [address] [phone] Jeffery Sanz MD [facility] HEMATOLOGY [place] [address] Mary Nails APRN [address] [place] [address] DR MEDICAL ONCOLOGY [place], [place] [id number] 01/01/2025 2:30 PM EDT Infusion Hematology Oncology at [address] [phone] 01/14/2025 11:00 AM EDT Laboratory Appointment Lab [place] [phone] 01/14/2025 1:[address] [place] [phone] Regino Carolina MD [facility] [place] [address] 01/14/2025 2:00 PM EDT Office Visit [place] [phone] Regino Carolina MD [facility] [place] [address] documented as of this encounter Procedures Procedure [...] below. ? Electronically signed by: China Ramirez [facility] ([phone]), at 12/06/2019 11:32 AM Narrative 12/06/2019 11:32 AM EDT STEREOTACTIC GUIDED [...] core biopsy specimens were obtained using a [facility] Eviva 9g device. Biopsy specimens were radiographed. ??The abnormality was present on the specimen digital radiograph. A [employer] Eviva cylinder marker clip was placed. Cranio-caudal [...] PM EDT 12/05/2019 2:16 PM EDT Narrative [facility] - 12/05/2019 2:16 PM EDT Specimen requisition ordered. ??Separate Pathology report to follow China Ramirez MD PATHOLOGY/CYTOLOGY ORDERABLES Performing Organization Address City/State/[place] Co de Phone Number [facility] [place] [address] * Surgical Pathology Report (12/05/2019 2:15 PM EDT) Final Diagnosis [id number] ? Location: 3L The signing pathologist has [...] FISH. ??Direct analysis was performed using the Panraven Kit. ??Slide adequacy and signal enumeration were [...] FDA for clinical diagnostic use. Reference: Nyla HACKETT et al. Recommendations for human epidermal growth factor receptor 2 testing in breast cancer: [place] Society of Clinical Oncology/College of [place] [employer]ologists clinical practice guideline update. J Clin Oncol. 2013 Feb 15. Nyla HACKETT, et al. Human Epidermal Growth Factor Receptor 2 Testing in Breast Cancer: [place] Society of Clinical Oncology/College of [place] [employer]ologists Clinical Practice Guideline Focused Update. Arch Pathol Lab Med. 2017September 13/J Clin Oncol. 2017September 13. Electronically signed by: ??Malathi CLANCY, Paty Martinez Verified: ??12/10/2019 ?Pathologist Performed at: ??-[facility] Dept. of Pathology, [place], [place] ? Addendum ADDENDUM DISCUSSION Immunohistochemist ry Studies . ADDENDUM DISCUSSION Specimen: Left breast, core needle biopsy (A2) ER immunoreactivity: Positive (>90% cancer cells with immunostaining) Stain intensity: Strong ND immunoreactivity: Negative (<1% cancer cells with immunostaining) [...] The assays were performed according to the hearing stenographer ? 's instructions using Anti-ER (SP1) and Anti-ND (16) antibodies. These tests were developed and their performance characteristics determined by [facility]. They may not have been cleared or [...] clinical laboratory testing. Electronically signed by: ??[place] Doyle MD Verified: ??12/06/2019 ?Pathologist Performed at: ??-[facility] Dept. of Pathology, [place], [place] ?Surgical Pathology DIAGNOSIS Needle biopsies: ?Left breast Diagnosis: ?- Invasive lobular carcinoma. ? Intermediate grade, modified SBR score = 6 ?- Lobular carcinoma in-situ and atypical lobular ?hyperplasia Microcalcification s: ??N/A Electronically signed by: ??[place] Doyle MD Verified: ??12/06/2019 ?Pathologist Performed at: ??-[facility] Dept. of Pathology, [place], [place] DISCUSSION Studies for ER, ND, and HER2 have been ordered; results will [...] labeled A1-A3. Ischemic Time: 1 minute ??shb 12/10/2019 5:39 PM EDT [facility] BREAST STRUCTURE / Unknown 12/05/2019 2:15 PM EDT 12/05/2019 2:15 PM EDT China A Zuurbier MD PATHOLOGY/CYTOLOGY ORDERABLES [facility] [place] [address] documented in this encounter Visit Diagnoses Diagnosis [...] mg documented in this encounter Care Teams Forest Fire Equipment Operator Relationship Specialty Start Date End Date Zeny James APRN [address] [place] [address] PCP - General Family Medicine 09/23/19 documented as of this encounter
--- OUTSIDE RECORDS SUMMARY | 2024-05-10 14:59 | XMS_ITS | Encounter Summary ---
Author Organization [facility] Address [facility] [place] [address] Care Team Providers Care Safety Person Name Role Phone Zeny James APRN Primary Care Provider Reason for Referral * Consultation (Routine) - Closed Specialty Diagnoses / Procedures Referred By Nir potts Referred To Contact General Surgery Diagnoses Pancreatic cyst Ralf Urrutia MD [facility] [place] [address] Regino Carolina MD [facility] [place] [address] Referral ID Status Reason Start Date Expiration Date V isits Requested Visits Authorized [id number] Closed Consult, Test & Treat 11/18/2019 11/17/2020 1 1 Encounter Details Date Type Department Care Team (Late st Contact Info) Description 11/18/2019 Telephone [place] [address] Ralf Urrutia MD [facility] [place] [address] Social History Tobacco Use Types Packs/Day Years [...] PM EDT Office Visit Hematology/Oncology at [address] [phone] Jeffery Sanz MD [facility] DR [place] [address] Mary Nails APRN [address] [place] [address] DR MEDICAL ONCOLOGY [place], [place] [phone] 01/01/2025 2:30 PM EDT Infusion Hematology Oncology at [address] [phone] 01/14/2025 11:00 AM EDT Laboratory Appointment Lab 3[place] [phone] 01/14/2025 1:[address] [place] [phone] Regino Carolina MD [facility] [place] [address] 01/14/2025 2:00 PM EDT Office [place] [phone] Regino Carolina MD [facility] [place] [address] Scheduled Referrals Name Type Priority Associated Diagnoses Orde r Schedule Referral to General Surgery Outpatient Referral Routine Pancreatic cyst Ordered: 11/18/2019 documented as of this encounter Visit Diagnoses Diagnosis Pancreatic cyst Cyst and pseudocyst of pancreas documented in this encounter Care Teams Safety Person Relationship Specialty Start Date End Date Zeny JamesJESUS ALBERTO [address] [place] [address] PCP - General Family Medicine 09/23/19 documented as of this encounter
--- OUTSIDE RECORDS SUMMARY | 2024-05-10 14:59 | XMS_ITS | Encounter Summary ---
[place] [address] Care Team Providers Care Security Administrator Name Role Phone Zeny James JESUS ALBERTO Primary Care Provider [phone] Encounter Details Date Type Department Care Team (Late st Contact Info) Description 12/10/2019 Telephone Hematology [place] [phone] Lillie Oscar RN Social History Tobacco Use Types Packs/Day Years Used Date Smoking Tobacco: Never Smokeless Tobacco: Never Sex and Gender Information Value Date Recorded Sex Assigned at Not on file Gender Identity Not on file Sexual Orientation Not on file documented as of this encounter Miscellaneous Notes * Telephone Encounter - Lillie Oscar RN - 12/10/2019 3:50 PM EDT [facility] Nurse Navigation Patient Care Plan for the Comprehensive Breast Program(CBP) Reason for call: contacted Linda Serrano via phone to assess for nurse navigation services afterDr. Ramirez informed her that her breast biopsy results indicated she has breast cancer, and to introduce her to the CBP. Linda Serrano is a 74 y.o. female with newly diagnosed ER+/VT-/HER2 pending left breast invasivelobular carcinoma ([place] [facility] [place] 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 Not interested in access to [facility]. Plan: consultation with a breast surgeon has been scheduled. She was introduced to the CBP and toldshe would receive information about her diagnosis and [...] Issues: Needs to Talk with Provider (Physican, Handbag Framer, Therapist, Etc.),Wants More Information, Personal History of Cancer Patient comments or concerns: would like to have surgery fairly soon in order to recover before planned Whipple (per patient). documented in this encounter Plan of Treatment Upcoming Encounters Date Type Department Care Team (Late st Contact Info) Description 01/01/2025 2:00 PM EDT Office Visit Hematology/Oncology at [address] [phone] Jeffery Sanz MD [facility] [place] [address] Mary Nails APRN [address] [place] [address] DR MEDICAL ONCOLOGY [place], [place] [phone] 01/01/2025 2:30 PM EDT Infusion Hematology Oncology at [address] [phone] 01/14/2025 11:00 AM EDT Laboratory Appointment Lab [place] [address] 01/14/2025 1:[address] [place] [address] Regino Carolina MD [facility] [place] [place] [address] 01/14/2025 2:00 PM EDT Office [place] [address] Regino Carolina MD [facility] [place] [address] documented as of this encounter Visit Diagnoses Not on filedocumented in this encounter Care Teams Security Administrator Relationship Specialty Start Date End Date Zeny James JESUS ALBERTO [address] [place], [place] [address] PCP - General Family Medicine 09/23/19 documented as of this encounter
--- OUTSIDE RECORDS SUMMARY | 2024-05-10 14:59 | XMS_ITS | Encounter Summary ---
[place] [address] Care Team Providers Care Passenger Interline Clerk Name Role Phone Zeny James APRN Primary Care Provider Encounter Details Date Type Department Care Team (Late st Contact Info) Description 12/25/2019 Telephone Hematology [place] [address] Elizabeth Montero Social History Tobacco Use Types [...] PM EDT Office Visit Hematology/Oncology at [address] [phone] Jeffery Sanz MD [facility] DR HEMATOLOGY [place] [address] Mary Nails APRN [address] [place] [address] DR MEDICAL ONCOLOGY [place], [place] [address] 01/01/2025 2:30 PM EDT Infusion Hematology Oncology at [address] [phone] 01/14/2025 11:00 AM EDT Laboratory Appointment Lab [place] [phone] 01/14/2025 1:[address] [place] [phone] Regino Carolina MD [facility] [place] [address] 01/14/2025 2:00 PM EDT Office [place] [phone] Regino Carolina MD [facility] [place] [address] documented as of this encounter Visit Diagnoses Not on filedocumented in this encounter Care Teams Passenger Interline Clerk Relationship Specialty Start Date End Date Zeny James APRN [address] [place], [place] [address] PCP - General Family Medicine 09/23/19 documented as of this encounter
--- OUTSIDE RECORDS SUMMARY | 2024-05-10 14:59 | XMS_ITS | Encounter Summary ---
Author Organization [facility] [place] [address] Care Team Providers Care Editor Farm Journal Name Role Phone Zeny James JESUS ALBERTO Primary Care Provider Encounter Details Date Type Department Care Team (Late st Contact Info) Description 12/20/2019 Telephone Hematology [place] [address] Elizabeth Montero Social History Tobacco Use Types [...] PM EDT Office Visit Hematology/Oncology at [address] [phone] Jeffery Sanz MD [facility] DR HEMATOLOGY [place] [address] Mary Nails SAGGER SOAK [address] [place] [address] DR MEDICAL ONCOLOGY [place], [place] [address] 01/01/2025 2:30 PM EDT Infusion Hematology Oncology at [address] [phone] 01/14/2025 11:00 AM EDT Laboratory Appointment Lab [address] [address] 01/14/2025 1:[address] [place] [phone] Regino Carolina MD [facility] [place] [address] 01/14/2025 2:00 PM EDT Office Visit [place] [phone] Regino Carolina MD [facility] [place] [address] documented as of this encounter Visit Diagnoses Not on filedocumented in this encounter Care Teams Editor Farm Journal Relationship Specialty Start Date End Date Zeny James APRN [address] [place] [address] PCP - General Family Medicine 09/23/19 documented as of this encounter
--- OUTSIDE RECORDS SUMMARY | 2024-05-10 14:59 | XMS_ITS | Encounter Summary ---
Author Organization [facility] Address [facility] [place] [address] Care Team Providers Care Liquefier Name Role Phone Zeny James JESUS ALBERTO Primary Care Provider Encounter Details Date Type Department Care Team (Late st Contact Info) Description 12/18/2019 Notes [place] [phone] Lora Jang MSW Social History Tobacco Use Types Packs/Day Years Used Date Smoking Tobacco: Never Smokeless Tobacco: Never Sex and Gender Information Value Date Recorded Sex Assigned at Not on file Gender Identity Not on file Sexual Orientation Not on file documented as of this encounter Progress Notes * Lora Jang MSW - 12/18/2019 11:14 AM EDT OFFICE OF CARE MANAGEMENT/CONTINUING CAT OPERATOR Reason for referral: Linda Serrano is a 74 year old, female who was seen in the multidisciplinary breast care clinic for a surgical consult as she was recently diagnosed with ER+, SC-, left breast, ILC. Pt met with Dr. [...] Dr. Carolina in January for further evaluation. [facility] met with pt to complete a psychosocial assessment and to explain my role in the breast program. Pt was encouraged to contact me if she has any questions or concerns. Living arrangements/social supports: Pt lives in [place], [place]. She lost her seven years ago and has three sons who live in [place], [place] and [place]. Pt states she has support from her [...] their psychosocial needs. [facility]YLIE Farias [facility]/[place], [place] [phone] Pager #[phone] documented in this encounter Plan of Treatment Upcoming Encounters Date Type Department Care Team (Late st Contact Info) Description 01/01/2025 2:00 PM EDT Office Visit Hematology/Oncology at [address] [phone] Jeffery Sanz MD [facility] DR [place] [address] Mary Nails APRN [address] [place] [address] DR MEDICAL ONCOLOGY [place], [place] [address] 01/01/2025 2:30 PM EDT Infusion Hematology Oncology at [address] [phone] 01/14/2025 11:00 AM EDT Laboratory Appointment Lab [address] [phone] 01/14/2025 1:[address] Scan at [place] [phone] Regino Carolina MD [facility] [place] [address] 01/14/2025 2:00 PM EDT Office [place] [phone] Regino Carolina MD [facility] [place] [address] documented as of this encounter Visit Diagnoses Not on filedocumented in this encounter Care Teams Liquefier Relationship Specialty Start Date End Date Zeny James APRN [address] [place] [address] PCP - General Family Medicine 09/23/19 documented as of this encounter
--- OUTSIDE RECORDS SUMMARY | 2024-05-10 14:59 | XMS_ITS | Encounter Summary ---
Author Organization [facility] [place] [address] Care Team Providers Care Vacuum Truck Driver Name Role Phone Zeny James JESUS ALBERTO Primary Care Provider Encounter Details Date Type Department Care Team (Latest Contact Info) Description 12/18/2019 9:15 AM EDT Laboratory Appointment Lab 3[place] [address] Malignant neoplasm of left breast in female, [...] PM EDT Office Visit Hematology/Oncology at [address] [phone] Jeffery Sanz MD [facility] DR HEMATOLOGY [place] [address] Mary Nails [address] MEDICAL ONCOLOGY [place], [place] [address] 01/01/2025 2:30 PM EDT Infusion Hematology Oncology at [address] [phone] 01/14/2025 11:00 AM EDT Laboratory Appointment Lab [address] [phone] 01/14/2025 1:[address] [place] [phone] Regino Carolina MD [facility] GENERAL SURGERY [place], [place] [address] 01/14/2025 2:00 PM EDT Office [place] [phone] Regino Carolina MD [facility] [place] [address] documented as of this encounter Procedures Procedure [...] (ABNORMAL) Differential, Automated (12/18/2019 8:46 AM EDT) Neutrophil % 72.2 % [facility] Neutrophil Absolute 7.01(H) 1.70 - 6.10 x10(3)/mc L [facility] Lymph % 14.1 % [facility] Lymphocytes Abs 1.4 0.9 - 3.2 x10(3)/mc L [facility] Monocyte % 9.2 % [facility] Monocyte Abs 0.9 0.3 - 0.9 x10(3)/[facility] Eos % 3.4 % [facility] Eosinophils Abs 0.3 0.0 - 0.4 x10(3)/[facility] Basophil % 0.8 % [facility] Baso Absolute 0.1 0.0 - 0.1 x10(3)/[facility] Immature Gran % 0.30 % [facility] Comment: Immature granulocytes(IG's)percentage and absolute count will include metamyelocytes, myelocytes, and promyelocytes. Blood smears from CBCs yielding IG's will be scanned manually for concordance. If this scan disagrees with the automated IG or if promyelocytes are noted, a manual differential will be performed. Immature Gran Absolute 0.03 0.00 - 0.04 x10(3)/[facility] Blood specimen (specimen) 12/18/2019 8:46 AM EDT 12/18/2019 8:54 AM EDT Narrative Resulting Agency Comment Spec In Lab Susan Rivera MD HEMATOLOGY ORDERABL ES [facility] [place] [address] * (ABNORMAL) Hemogram (12/18/2019 8:46 AM EDT) White Blood Cell 9.7(H) 4.0 - 9.5 x10(3)/[facility] Red Blood Cell 4.71 4.00 - 5.21 x10(6)/[facility] Hemoglobin 14.3 11.7 - 15.5 gm/dL [facility] Hematocrit 43.7 35.7 - 45.8 % [facility] Mean Cell Volume 92.8 82.6 - 94.4 fL [facility] Mean Cell Hemoglobin 30.4 27.1 - 32.0 pg [facility] Mean Cell Hemoglobin Concentration 32.7 31.7 - 35.0 gm/dL [facility] Platelet 290 145 - 357 x10(3)/mc L [facility] RDW Standard Deviation 44.0 37.0 - 46.0 fL [facility] RDW coefficient of variation 12.8 11.5 - 14.1 % [facility] Mean Platelet Volume 9.9 7.6 - 12.9 fL [facility] NRBC% auto 0.0 % [facility] NRBC Absolute 0.000 0.000 - 0.000 x10(3)/mc L [facility] Blood specimen (specimen) 12/18/2019 8:46 AM EDT 12/18/2019 8:54 AM EDT Narrative Resulting Agency Comment Spec In Lab Susan Rivera MD HEMATOLOGY ORDERABL ES Performing Organization Address City/State/[facility] Co de Phone Number [facility] [place] [address] documented in this encounter Visit Diagnoses Diagnosis Malignant neoplasm of left breast in female, estrogen receptor positive, unspecified site of breast documented in this encounter Care Teams Vacuum Truck Driver Relationship Specialty Start Date End Date Zeny James APRN [address] [place] [address] PCP - General Family Medicine 09/23/19 documented as of this encounter
--- OUTSIDE RECORDS SUMMARY | 2024-05-10 14:59 | XMS_ITS | Encounter Summary ---
Author Organization [facility] [place] [address] Care Team Providers Care Computer Architect Name Role Phone Zeny James APRN Primary Care Provider Encounter Details Date Type Department Care Team (Late st Contact Info) Description 11/15/2019 12:04 PM EDT Anesthesia Event [place] [address] Alba Coats MD [facility] [place] [address] Denzel Torres CRNA [facility] [place] [address] Anesthesia Record Procedure Summary Procedure Name Responsible [...] 1155; metacarpal vein (top of hand), left; qsdk-rxi-dgbddp catheter system; 24 gauge, 3/4 in length; [...] 1231; median vein (underside of arm), left; nyud-fjt-ndlmko catheter system; 20 gauge; 11/15/19; 1355 11/15/19 [...] Procedure Summary Date: 11/15/19 Room / Location: [facility] ENDO 3 / [facility]COPY Anesthesia Start: 1204 Anesthesia Stop: [...] All Anesthesia Providers: Anesthesiologist: Alba Coats MD STATE FIRE MARSHAL: Denzel Torres CRNA Student Nurse Urology Physician Assistant: Jer Rodríguez Vitals Value Taken Time BP 156/85 11/15/19 1345 Temp Pulse 66 11/15/19 1315 Resp 16 11/15/19 1315 SpO2 100 % 11/15/19 1346 Pain Level 0 11/15/19 1315 Vitals shown include unvalidated device data. Patient Location: PACU/[facility] Level of Consciousness: Awake and Alert Pain Management: Satisfactory Analgesia PONV: None Cardiovascular Status: At Baseline and Hemodynamically Stable Respiratory Status: At Baseline and Room Air Postoperative Fluid Status: Intravascular EUvolemia Possible Anesthetic Complications: NONE apparent at time of evaluation Final Primary Anesthesia Type: General (The anesthetic type performed was the same as planned.) Comments: Pt did well today! ALBA COATS MD * Anesthesia Preprocedure Evaluation - [...] specimens had focally suggestive angiolymphatic invasion. ER-pos; AR-neg; HER2=2+. 02/06/01: R MRM/ax dissection. On path, [...] DIAGNOSTIC performed by Izzy Johnson MD at [facility] ENDOSCOPY Social History Tobacco Use ??? [...] risks discussed with patient. Plan discussed with STATE FIRE MARSHAL. PAT Clinic Note documented in this encounter Plan of Treatment Upcoming Encounters Date Type Department Care Team (Late st Contact Info) Description 01/01/2025 2:00 PM EDT Office Visit Hematology/Oncology at [address] [phone] Jeffery Sanz MD [facility] [place] [address] Mary Nails APRN [address] [place] [address] DR MEDICAL ONCOLOGY [place], [place] [id number] 01/01/2025 2:30 PM EDT Infusion Hematology Oncology at [address] [phone] 01/14/2025 11:00 AM EDT Laboratory Appointment Lab [place] [phone] 01/14/2025 1:[address] [place] [phone] Regino Carolina MD [facility] [place] [address] 01/14/2025 2:00 PM EDT Office Visit [place] [phone] Regino Carolina MD [facility] [place] [address] documented as of this encounter Visit Diagnoses [...] mg documented in this encounter Care Teams Computer Architect Relationship Specialty Start Date End Date Zeny James APRN [address] [place] [address] PCP - General Family Medicine 09/23/19 documented as of this encounter
--- OUTSIDE RECORDS SUMMARY | 2024-05-10 14:59 | XMS_ITS | Encounter Summary ---
Author Organization [facility] [place] [address] Care Team Providers Care Supervisor Cemetery Workers Name Role Phone Zeny James JESUS ALBERTO Primary Care Provider [phone] Reason for Visit * Diagnostic Test (Routine) - Closed Specialty Diagnoses / Procedures Referred By Nir potts Referred To Contact Radiology Diagnoses Malignant neoplasm of pancreatic duct Procedures NM PET CT Skull Base to Mid-thigh Regino Carolina MD [facility] [place] [address] [place] [address] Referral ID Status Reason Start Date Expiration Date V isits Requested Visits Authorized [id number] Closed Specialty Service Requested 11/25/2019 05/27/2021 1 1 Encounter Details Date Type Department Care Team (Late st Contact Info) Description 12/05/2019 2:32 PM EDT - 12/05/2019 11:59 PM EDT Hospital Encounter [place] [address] Regino Carolina MD [facility] [place] [address] Discharge Disposition: Home Social History [...] by mouth every other day. 10/25/2019 04/11/2020 kglhra-aznirolo-mdsavp e DR (Creon) 24,000-76,000 -120,000 unit Capsule, [...] PM EDT Office Visit Hematology/Oncology at [address] [phone] Jeffery Sanz MD [facility] [place] [address] Mary Nails APRN [address] [place] [address] [place] [address] 01/01/2025 2:30 PM EDT Infusion Hematology Oncology at [address] [address] 01/14/2025 11:00 AM EDT Laboratory Appointment Lab 3[address] [place] [address] 01/14/2025 1:[address] [place] [address] Regino Carolina MD [facility] [place] [address] 01/14/2025 2:00 PM EDT Office [place] [address] Regino Carolina MD [facility] GENERAL SURGERY [place], [place] [phone] documented as of this encounter Procedures Procedure Name Priority Date/Time Associated Diagnosis Comments NM PET CT SKULL BASE TO MID-THIGH ([facility]) Routine 12/05/2019 3:55 PM EDT Malignant neoplasm of pancreatic duct POCT GLUCOSE Routine 12/05/2019 2:35 PM EDT documented in this encounter Results * POCT Glucose (12/05/2019 2:35 PM EDT) Glucose, POC 91 65 - 199 mg/dL [facility] Comment: Supplemental ranges: <140 mg/dL before meals <180 mg/dL all other times of the day Blood specimen (specimen) 12/05/2019 2:35 PM EDT 12/05/2019 2:35 PM EDT Regino Carolina MD POINT OF CARE TEST ORDERABLES [facility] [place] [address] documented in this encounter Visit Diagnoses Not [...] Arm documented in this encounter Care Teams Supervisor Cemetery Workers Relationship Specialty Start Date End Date Zeny James APRN [address] [place] [address] [address] [place] [address] PCP - General Family Medicine 09/23/19 documented as of this encounter
--- OUTSIDE RECORDS SUMMARY | 2024-05-10 14:59 | XMS_ITS | Encounter Summary ---
Author Organization [facility] Address [facility] [place] [address] Care Team Providers Care Deck Scaler Name Role Phone Zeny James APRN Primary Care Provider Encounter Details Date Type Department Care Team (Late st Contact Info) Description 12/10/2019 Telephone [place] [address] Regino Carolina MD [facility] [place] [address] Social History Tobacco Use Types Packs/Day Years [...] 2:00 PM EDT Office Visit Hematology/Oncology at [address] [phone] Jeffery Sanz MD [facility] DR [place] [address] Mary Nails OFFSET SECOND PRESS OPERATOR [address] [place] [address] DR MEDICAL ONCOLOGY [place], [place] [id number] 01/01/2025 2:30 PM EDT Infusion Hematology Oncology at [address] [phone] 01/14/2025 11:00 AM EDT Laboratory Appointment Lab [place] [phone] 01/14/2025 1:[address] [place] [phone] Regino Carolina MD [facility] [place] [address] 01/14/2025 2:00 PM EDT Office [place] [phone] Regino Carolina MD [facility] [place] [address] documented as of this encounter Visit Diagnoses Not on filedocumented in this encounter Care Teams Deck Scaler Relationship Specialty Start Date End Date Zeny James OFFSET SECOND PRESS OPERATOR [address] [place] [address] PCP - General Family Medicine 09/23/19 documented as of this encounter
--- OUTSIDE RECORDS SUMMARY | 2024-05-10 14:59 | XMS_ITS | Encounter Summary ---
Author Organization [facility] [place] [address] Care Team Providers Care Review Rn Name Role Phone Zeny James APRN Primary Care Provider Encounter Details Date Type Department Care Team (Late st Contact Info) Description 11/25/2019 11:26 AM EDT - 11/25/2019 11:59 PM EDT Hospital Encounter Mammography/[place] [address] Zeny James APRN [address] [place], [place] [id number] Encounter for screening mammogram for breast cancer [...] by mouth every other day. 10/25/2019 04/11/2020 reissf-yjcnkhkx-ivfsbs e DR (Ryan) 24,000-76,000 -120,000 unit Capsule, [...] PM EDT Office Visit Hematology/Oncology at [address] [phone] [facility] [place] [address] Mary Nails, JESUS ALBERTO [address] [place] [address] DR MEDICAL ONCOLOGY [place], [place] [address] 01/01/2025 2:30 PM EDT Infusion Hematology Oncology at [address] [phone] 01/14/2025 11:00 AM EDT Laboratory Appointment Lab [place] [phone] 01/14/2025 1:[address] [place] [phone] [facility] [place] [address] 01/14/2025 2:00 PM EDT Office [place] [address] [facility] [place] [address] documented as of this encounter Procedures Procedure [...] cancer documented in this encounter Care Teams Review Rn Relationship Specialty Start Date End Date Zeny James APRN [address] [place] [address] PCP - General Family Medicine 09/23/19 documented as of this encounter
--- OUTSIDE RECORDS SUMMARY | 2024-05-10 14:59 | XMS_ITS | Encounter Summary ---
Author Organization [facility] [place] [address] Care Team Providers Care Supply Chain Engineer Name Role Phone Zeny James APRN Primary Care Provider Encounter Details Date Type Department Care Team (Latest Contact Info) Description 12/05/2019 12:33 PM EDT - 12/05/2019 1:30 PM EDT Hospital Encounter [place] [address] Rob Gleason MD Abnormal finding on breast [...] by mouth every other day. 10/25/2019 04/11/2020 avdhoc-bfurdchv-qwsmuh e DR (Creon) 24,000-76,000 -120,000 unit Capsule, [...] PM EDT Office Visit Hematology/Oncology at [address] [phone] Jeffery Sanz MD [facility] HEMATOLOGY [place] [address] Mary Nails APRN [address] [place] [address] DR MEDICAL ONCOLOGY [place], [place] [id number] 01/01/2025 2:30 PM EDT Infusion Hematology Oncology at [address] [phone] 01/14/2025 11:00 AM EDT Laboratory Appointment Lab [place] [phone] 01/14/2025 1:[address] [place] [address] Regino Carolina MD [facility] [place] [address] 01/14/2025 2:00 PM EDT Office Visit [place] [address] Regino Ramires MD [facility] [place] [address] documented as of this encounter Procedures Procedure [...] breast documented in this encounter Care Teams Supply Chain Engineer Relationship Specialty Start Date End Date Zeny James APRN [address] [place] [address] PCP - General Family Medicine 09/23/19 documented as of this encounter
--- OUTSIDE RECORDS SUMMARY | 2024-05-10 14:59 | XMS_ITS | Encounter Summary ---
[facility] [place] [address] Care Team Providers Care Thread Milling Machine Set Up Operator Name Role Phone Zeny James JESUS ALBERTO Primary Care Provider Reason for Referral * Physical Therapy (Routine) - Specialty Diagnoses / Procedures Referred By Nir potts Referred To Contact Physical Therapy Diagnoses History of breast cancer Susan Rivera MD [facility] [place] [address] Referral ID Status Reason Start Date Expiration Date V isits Requested Visits Authorized [id number] Evaluate and Treat 12/20/2019 06/17/2020 12 12 Encounter Details Date Type Department Care Team (Late st Contact Info) Description 12/20/2019 Orders [place] [address] Susan Rivera MD [facility] [place] [address] History of breast cancer Social History Tobacco [...] PM EDT Office Visit Hematology/Oncology at [address] [phone] Jeffery Sanz MD [facility] [place] [address] Mary Nails APRN [address] [place] [address] DR MEDICAL ONCOLOGY [place], [place] [address] 01/01/2025 2:30 PM EDT Infusion Hematology Oncology at [address] [phone] 01/14/2025 11:00 AM EDT Laboratory Appointment Lab [place] [address] 01/14/2025 1:[address] [place] [address] Regino Carolina MD [facility] [place] [address] 01/14/2025 2:00 PM EDT Office Visit [place] [address] Regino Carolina MD [facility] [place] [address] Scheduled Referrals Name Type Priority Associated Diagnoses Orde r Schedule Referral to Physical Therapy Outpatient Referral Routine History of breast cancer Ordered: 12/20/2019 documented as of this encounter Visit Diagnoses Diagnosis History of breast cancer Personal history of malignant neoplasm of breast documented in this encounter Care Teams Thread Milling Machine Set Up Operator Relationship Specialty Start Date End Date Erika JESUS ALBERTO Moura [address] [place] [address] PCP - General Family Medicine 09/23/19 documented as of this encounter
--- OUTSIDE RECORDS SUMMARY | 2024-05-10 14:59 | XMS_ITS | Encounter Summary ---
Author Organization [facility] [place] [address] Care Team Providers Care Front Man Name Role Phone Zeny James JESUS ALBERTO Primary Care Provider [phone] Encounter Details Date Type Department Care Team (Late Contact Info) Description 12/10/2019 Orders [place] [address] Larry Hernandez MD [address] [place] [address], [facility] 1 [place] [address] Social History Tobacco Use Types Packs/Day Years [...] PM EDT Office Visit Hematology/Oncology at [address] [phone] Jeffery Sanz MD [facility] [place] [address] Mary Nails APRN [address] [place] [address] DR MEDICAL ONCOLOGY [place], [place] [address] 01/01/2025 2:30 PM EDT Infusion Hematology Oncology at [address] [phone] 01/14/2025 11:00 AM EDT Laboratory Appointment Lab 3[address] [place] [address] 01/14/2025 1:[address] [place] [address] Regino Carolina MD [facility] [place] [address] 01/14/2025 2:00 PM EDT Office Visit [place] [phone] Regino Carolina MD [facility] [place] [address] documented as of this encounter Visit Diagnoses Not on filedocumented in this encounter Care Teams Front Man Relationship Specialty Start Date End Date Zeny James APRN [address] [place] [address] [address] [facility] 1 [place] [address] PCP - General Family Medicine 09/23/19 documented as of this encounter
--- OUTSIDE RECORDS SUMMARY | 2024-05-10 14:59 | XMS_ITS | Encounter Summary ---
Author Organization [facility] [place] [address] Care Team Providers Care Document Coordinator Name Role Phone Zeny James APRN Primary Care Provider Encounter Details Date Type Department Care Team (Late st Contact Info) Description 11/15/2019 12:15 PM EDT Ancillary Procedure [place] [address] Social History Tobacco Use Types Packs/Day Years [...] 2:00 PM EDT Office Visit Hematology/Oncology at [address] [phone] Jeffery Sanz MD [facility] DR [place] [address] Mary Nails CLAY MINE CUTTING MACHINE OPERATOR [address] [place] [address] DR MEDICAL ONCOLOGY [place], [place] [address] 01/01/2025 2:30 PM EDT Infusion Hematology Oncology at [address] [phone] 01/14/2025 11:00 AM EDT Laboratory Appointment Lab 3[place] [address] 01/14/2025 1:[address] [place] [address] Regino Carolina MD [facility] [place] [address] 01/14/2025 2:00 PM EDT Office Visit [place] [phone] Regino Carolina MD [facility] [place] [address] Pending Results Name Type Priority Associated Diagnoses Date /Time XR ERCP Imaging Storage Only Routine 10/17 12:11 PM EDT documented as of this encounter Visit Diagnoses Not on filedocumented in this encounter Care Teams Document Coordinator Relationship Specialty Start Date End Date Zeny James APRN [address] [place] [address] PCP - General Family Medicine 09/23/19 documented as of this encounter
--- OUTSIDE RECORDS SUMMARY | 2024-05-10 14:59 | XMS_ITS | Encounter Summary ---
Author Organization [facility] Address [facility] [place] [address] Care Team Providers Care Store Receiving Clerk Name Role Phone Zeny James APRN Primary Care Provider Encounter Details Date Type Department Care Team (Late st Contact Info) Description 12/24/2019 Telephone [place] [phone] Rosette Jerry RN Social History Tobacco Use Types Packs/Day [...] and ask to speak to the Doctor customer solutions supervisor ?? You need to keep your drain [...] copy of these instructions were given to Lindaisaiah Serrano who was able to verbalized their understanding [...] to the attention of Rhonda Fernandez at [phone]. I have called the office to verify [...] 3 hour car trip to and from [facility]. I let her know we are happy to fax orders to a provider if she can find someone who will remove herdin in her local area. [facility] Operative Note Patient Name: Linda Serrano : [id number] MR#: [id number] Case Date: 12/20/2019 Surgeon: Surgeon(s) and Role: [...] PM EDT Office Visit Hematology/Oncology at [address] [phone] Jeffery Sanz MD [facility] DR HEMATOLOGY [place] [address] Mary Nails APRN [address] [place] [address] DR MEDICAL ONCOLOGY [place], [place] 4020[address] 01/01/2025 2:30 PM EDT Infusion Hematology Oncology at [address] [phone] 01/14/2025 11:00 AM EDT Laboratory Appointment Lab 3[place] [phone] 01/14/2025 1:[address] [place] [phone] Regino Carolina MD [facility] [place] [address] 01/14/2025 2:00 PM EDT Office Visit [place] [address] Regino Carolina MD [facility] [place] [address] documented as of this encounter Visit Diagnoses Not on filedocumented in this encounter Care Teams Store Receiving Clerk Relationship Specialty Start Date End Date Zeny James APRN [address] [place] [address] [address] [facility] 1 [place] [address] PCP - General Family Medicine 09/23/19 documented as of this encounter
--- OUTSIDE RECORDS SUMMARY | 2024-05-10 14:59 | XMS_ITS | Encounter Summary ---
Author Organization [facility] Address [facility] [place] [address] Care Team Providers Care Fashion Buying Internship Name Role Phone Zeny James APRN Primary Care Provider Encounter Details Date Type Department Care Team (Late st Contact Info) Description 11/26/2019 Telephone [place] [address] Regino Carolina MD [facility] [place] [address] Social History Tobacco Use Types Packs/Day Years [...] 3:03 PM This note was created using HistoryFile) voice recognition software. Lisa Krause Kerrington D, MD ?? Linda called saying her paperwork from clinic appt yesterday says she needs to have a CT of the chest, but you didn't mention that to her. When ??you call her about lab results, can you clarify and let me know if I need to schedule Thanks Lisa documented in this encounter Plan of Treatment Upcoming Encounters Date Type Department Care Team (Late st Contact Info) Description 01/01/2025 2:00 PM EDT Office Visit Hematology/Oncology at [address] [phone] Jeffery Sanz MD [facility] DR [place] [address] Mary Nails APRN [address] [place] [address] DR MEDICAL ONCOLOGY [place], [place] [id number] 01/01/2025 2:30 PM EDT Infusion Hematology Oncology at [address] [phone] 01/14/2025 11:00 AM EDT Laboratory Appointment Lab [place] [phone] 01/14/2025 1:[address] [place] [address] Regino Carolina MD [facility] [place] [address] 01/14/2025 2:00 PM EDT Office [place] [phone] Regino Carolina MD [facility] [place] [address] documented as of this encounter Visit Diagnoses Not on filedocumented in this encounter Care Teams Fashion Buying Internship Relationship Specialty Start Date End Date Zeny James APRN [address] [place], [place] [address]Y [facility] 1 [place] [address] PCP - General Family Medicine 09/23/19 documented as of this encounter
--- OUTSIDE RECORDS SUMMARY | 2024-05-10 14:59 | XMS_ITS | Encounter Summary ---
[place] [address] Care Team Providers Care Ct Manager Name Role Phone Zeny James APRN Primary Care Provider [phone] Reason for Referral * Diagnostic Test (Routine) - Closed Specialty Diagnoses / Procedures Referred By Contac Referred To Contact Radiology Diagnoses Malignant neoplasm of pancreatic duct Procedures NM PET CT Skull Base to Mid-thigh Regino Carolina MD [facility] [place] [address] [place] [address] Referral ID Status Reason Start Date Expiration Date V isits Requested Visits Authorized [id number] Closed Specialty Service Requested 11/25/2019 05/27/2021 1 1 Reason for Visit * Diagnostic Test (Routine) - Closed Specialty Diagnoses / Procedures [facility] Referred To Contact Radiology Diagnoses Malignant neoplasm of pancreatic duct Procedures NM PET CT Skull Base to Mid-thigh Regino Carolina MD [facility] [address] [place] [address] [facility] [place] [address] Referral ID Status Reason Start Date Expiration Date V isits Requested Visits Authorized [id number] Closed Specialty Service Requested 11/25/2019 05/27/2021 1 1 Encounter Details Date Type Department Care Team (Late st Contact Info) Description 12/05/2019 2:29 PM EDT - 12/05/2019 2:31 PM EDT Hospital Encounter [place] [address] Regino Carolina MD [facility] [place] [address] Malignant neoplasm of pancreatic duct Discharge Disposition: [...] by mouth every other day. 10/25/2019 04/11/2020 [id number] e DR [place]) 24,000-76,000 -120,000 unit Capsule, Delayed Release(E.C.) Take [...] PM EDT Office Visit Hematology/Oncology at [address] [phone] Jeffery Sanz MD [facility] DR HEMATOLOGY [place] [address] Mary Nails APRN [address] [place] [address] DR MEDICAL ONCOLOGY [place], [place] [id number] 01/01/2025 2:30 PM EDT Infusion Hematology Oncology at [address] [phone] 01/14/2025 11:00 AM EDT Laboratory Appointment Lab [address] [place] [phone] 01/14/2025 1:[address] [place] [phone] Regino Carolina MD [facility] [place] [address] 01/14/2025 2:00 PM EDT Office [place] [phone] Regino Carolina MD [facility] [place] [address] documented as of this encounter Procedures Procedure [...] for metastases TECHNIQUE: Following IV injection of 47-rzaxvy-1-deoxyglucose (FDG) a standard uptake of approximately 60 minutes, a noncontrast CT scan followed by a PET scan were acquired from the base of the skull to mid thighs. The noncontrast CT was used for anatomic localization and photon attenuation correction of the PET scan. Blood glucose level: 91 (mg/dL) FDG dose: 10.5 mCi COMPARISON: Abdomen CT performed at [facility] on 2019 FINDINGS: HEAD/NECK: Normal activity [...] for metastases TECHNIQUE: Following IV injection of 99-bdembj-8-deoxyglucose (FDG) astandard uptake of approximately 60 minutes, a noncontrast CT scan followed by aPET scan were acquired from the base of the skull to mid thighs. The noncontrast CTwas used for anatomic localization and photon attenuation correction of thePET scan. Blood glucose level: 91 (mg/dL) FDG dose: 10.5 mCi COMPARISON: Abdomen CT performed at [facility] on 2019 FINDINGS: HEAD/NECK: Normal activity [...] duct documented in this encounter Care Teams Ct Manager Relationship Specialty Start Date End Date Zeny James APRN [address] [place] [address] PCP - General Family Medicine 09/23/19 documented as of this encounter
--- OUTSIDE RECORDS SUMMARY | 2024-05-10 14:59 | XMS_ITS | Encounter Summary ---
Author Organization [facility] [place] [address] Care Team Providers Care Commercial Carpet Installer Name Role Phone Zeny James JESUS ALBERTO Primary Care Provider Encounter Details Date Type Department Care Team (Latest Contact Info) Description 12/18/2019 11:00 AM EDT Clinical Support General Surgery at [facility] [place] [address] Other specified counseling Social History Tobacco Use [...] Clinic Nurses was given and the Doctor can conveyor feeder system explained. documented in this encounter Plan of Treatment Upcoming Encounters Date Type Department Care Team (Late st Contact Info) Description 01/01/2025 2:00 PM EDT Office Visit Hematology/Oncology at [address] [phone] Jeffery Sanz MD [facility] DR [place] [address] Mary Nails APRN [address] [place] [address] [place] [address] 01/01/2025 2:30 PM EDT Infusion Hematology Oncology at [address] [phone] 01/14/2025 11:00 AM EDT Laboratory Appointment Lab [place] [phone] 01/14/2025 1:[address] [place] [phone] Regino Carolina MD [facility] [place] [address] 01/14/2025 2:00 PM EDT Office Visit [place] [phone] Regino Carolina MD [facility] [place] [address] documented as of this encounter Visit Diagnoses Diagnosis Other specified counseling documented in this encounter Care Teams Commercial Carpet Installer Relationship Specialty Start Date End Date Zeny James APRN [address] [place] [address] [address] [place] [address] PCP - General Family Medicine 09/23/19 documented as of this encounter
--- OUTSIDE RECORDS SUMMARY | 2024-05-10 14:59 | XMS_ITS | Encounter Summary ---
[place] [address] Care Team Providers Care Double Cut Off Saw Operator Name Role Phone Zeny James APRN Primary Care Provider Reason for Referral * Diagnostic Test (Routine) - Closed Specialty Diagnoses / Procedures Referred By Contac t Referred To Contact Radiology Diagnoses Malignant neoplasm of pancreatic duct Procedures NM PET CT Skull Base to Mid-thigh Regino Carolina MD [facility] [place] [address] [place] [address] Referral ID Status Reason Start Date Expiration Date V isits Requested Visits Authorized [id number] Closed Specialty Service Requested 11/25/2019 05/27/2021 1 1 Reason for Visit * Consultation (Routine) - Closed Specialty Diagnoses / Procedures Referred By Contac t Referred To Contact General Surgery Diagnoses Pancreatic cyst Ralf Urrutia MD [facility] [place] [address] Regino Carolina MD [facility] [place] [address] Referral ID Status Reason Start Date Expiration Date V isits Requested Visits Authorized [id number] Closed Consult, Test & Treat 11/18/2019 11/17/2020 1 1 Encounter Details Date Type Department Care Team (Late st Contact Info) Description 11/25/2019 8:00 AM EDT Office Visit General Surgery at [facility] [address] Regino Carolina MD [facility] [place] [address] Malignant neoplasm of pancreatic duct Social History [...] Serrano is a 74 year woman from [place], [place]. She presented to [facility] ED on 2019 with epigastric abdominal pain [...] of pancreatic duct/cyst fluid cytopathology per Acc# [id number] showed neoplastic Cells Present. Abundant macrophages, mixed leukocytes present and a single group of bland-appearing columnar cells. ??Cell block was examined. Note: The fluid CEA level is consistent with neoplastic process. Today: 11/25/2019 surgical oncology consult. Maricruz was seen for surgery consultation. She was by herself. She described the episode that brought her to the ED at [facility] as the first time she is ever [...] systems: A comprehensive ROS questionnaire (scanned into [facility]) was completed by the patient - pertinent surgical related findings are summarized below. All other systems on the questionnaire were reviewed and were negative. She has never had any heart attack or chest pain symptoms. She is very active with housework, yard work and walking every day with her friends. 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 Her 7 years ago and she currently lives alone. Her stepdaughter Sienna lives nearby. She has 3 sons who live in [place], [place] in [place] and 6 stepchildren who she is very [...] cancer. Medications: 1. Tylenol as needed 2. Iio-zow-vtzfhuevb sulfate inhaler 2 puffs twice daily 3. Aspirin 81 mg daily 4. Calcium carbonate vitamin D3 600/15 100/800 unit tablet-1 tablet daily. 5. Cholecalciferol 25 mcg (1000 units) daily 6. Fluticasone 500 mcg Solu-Medrol 50 mcg inhaler twice daily 7. Flonase 2 sprays intranasally as needed 8. Magnesium oxide 4 mg daily 9. Multivitamin Centrum Silver women 10. Mastic-3 1000 mg fish oil capsule daily 11. 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 She actually did not have pancreatitis based on normal lipase levels at the time of her admission through the ED at [facility] though she clearly has a radiographic diagnosis [...] 9:02 AM This note was created using [employer] voice recognition software. documented in this encounter Miscellaneous Notes * Addendum Note - Sejal Butts - 11/25/2019 8:00 AM EDTAddended by: SEJAL BUTTS on: 11/25/2019 09:16 AM Modules accepted: Orders documented in this encounter Plan of Treatment Upcoming Encounters Date Type Department Care Team (Late st Contact Info) Description 01/01/2025 2:00 PM EDT Office Visit Hematology/Oncology at [address] [phone] Jeffery Sanz MD [facility] DR [place] [address] Mary Nails APRN [address] [place] [address] DR MEDICAL ONCOLOGY [place], [place] [id number] 01/01/2025 2:30 PM EDT Infusion Hematology Oncology at [address] [phone] 01/14/2025 11:00 AM EDT Laboratory Appointment Lab [place] [phone] 01/14/2025 1:[address] [place] [phone] Regino Carolina MD [facility] [place] [address] 01/14/2025 2:00 PM EDT Office [place] [phone] Regino Carolina MD [facility] [place] [address] documented as of this encounter Procedures Procedure [...] for metastases TECHNIQUE: Following IV injection of 50-bscitv-2-deoxyglucose (FDG) a standard uptake of approximately 60 minutes, a noncontrast CT scan followed by a PET scan were acquired from the base of the skull to mid thighs. The noncontrast CT was used for anatomic localization and photon attenuation correction of the PET scan. Blood glucose level: 91 (mg/dL) FDG dose: 10.5 mCi COMPARISON: Abdomen CT performed at [facility] on 2019 FINDINGS: HEAD/NECK: Normal activity [...] for metastases TECHNIQUE: Following IV injection of 37-dxeixq-2-deoxyglucose (FDG) astandard uptake of approximately 60 minutes, a noncontrast CT scan followed by aPET scan were acquired from the base of the skull to mid thighs. The noncontrast CTwas used for anatomic localization and photon attenuation correction of thePET scan. Blood glucose level: 91 (mg/dL) FDG dose: 10.5 mCi COMPARISON: Abdomen CT performed at [facility] on 2019 FINDINGS: HEAD/NECK: Normal activity [...] below. 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
--- OUTSIDE RECORDS SUMMARY | 2024-05-10 14:59 | XMS_ITS | Encounter Summary ---
Author Organization [facility] [place] [address] Care Team Providers Care Newsstand Vendor Name Role Phone Zeny James APRN Primary Care Provider Reason for Visit * Reason Comments Skin Check Encounter Details Date Type Department Care Team (Late st Contact Info) Description 11/25/2019 1:00 PM EDT Office Visit Dermatology at [address] [phone] Michael Cavazos MD [facility] [place] [address] Reyes angioma; SK (seborrheic keratosis); Lentigines; Multiple [...] MD. Michael Cavazos MD Section of Dermatology [facility] documented in this encounter Plan of Treatment Upcoming Encounters Date Type Department Care Team (Late st Contact Info) Description 01/01/2025 2:00 PM EDT Office Visit Hematology/Oncology at [address] [phone] Jeffery Sanz MD [facility] DR HEMATOLOGY [place] [address] Mary Nails APRN [address] [place] [address] DR MEDICAL ONCOLOGY [place], [place] [address] 01/01/2025 2:30 PM EDT Infusion Hematology Oncology at [address] [phone] 01/14/2025 11:00 AM EDT Laboratory Appointment Lab [place] [phone] [phone] 01/14/2025 1:[address] [place] [address] Regino Carolina MD [facility] [place] [address] 01/14/2025 2:00 PM EDT Office [place] [address] Regino Carolina MD [facility] [place] [address] documented as of this encounter Visit Diagnoses Diagnosis Reyes angioma Nevus, non-neoplastic SK (seborrheic keratosis) Other seborrheic keratosis Lentigines Other dyschromia Multiple benign nevi Benign neoplasm of skin, site unspecified History of basal cell carcinoma Personal history of other malignant neoplasm of skin documented in this encounter Care Teams Newsstand Vendor Relationship Specialty Start Date End Date Erika JESUS ALBERTO Moura [address] [place] [address] PCP - General Family Medicine 09/23/19 documented as of this encounter
--- OUTSIDE RECORDS SUMMARY | 2024-05-10 15:00 | XMS_ITS | Encounter Summary ---
[place] [address] Care Team Providers Care Professor Of Historical Theology Name Role Phone Villa Krause MD Primary Care Provider [phone] Encounter Details Date Type Department Care Team (Latest Contact Info) Description 08/26/2015 11:01 AM EDT - 08/26/2015 11:59 PM EDT Hospital [place] [address] Villa Krause MD [address] [place], [place] [address] Breast cancer screening, high risk patient Discharge [...] Date End Date desonide (DESOWEN) 0.05 % CreamIndications:[place] titis,Seborrheic dermatitis Once daily to the forehead [...] 2:00 PM EDT Office Visit Hematology/Oncology at [address] [phone] Jeffery Sanz MD [facility] [place] [address] Mary Nails APRN [address] [place] [address] DR MEDICAL ONCOLOGY [place], [place] [address] 01/01/2025 2:30 PM EDT Infusion Hematology Oncology at [address] [address] 01/14/2025 11:00 AM EDT Laboratory Appointment Lab [place] [phone] 01/14/2025 1:[address] [place] [phone] Regino Carolina MD [facility] [place] [address] 01/14/2025 2:00 PM EDT Office [place] [address] Regino Carolina MD [facility] [place] [address] documented as of this encounter Procedures Procedure [...] screening. BI-RADS Category 1: Negative * ??The [place] [employer] and The Society of [...] screening and breast MRI are appropriate. Villa J Krause MD IMG MAMMO ORDERABLES documented in this encounter Visit Diagnoses Diagnosis Breast cancer screening, high risk patient Screening mammogram for high-risk patient documented in this encounter Care Teams Professor Of Historical Theology Relationship Specialty Start Date End Date Villa Krause MD [address] [place] [address] PCP - General 12/25/13 10/10/16 documented as of this encounter
--- OUTSIDE RECORDS SUMMARY | 2024-05-10 15:00 | XMS_ITS | Encounter Summary ---
Author Organization [facility] Address [facility] [place] [address] Care Team Providers Care Auto Body Straightener Name Role Phone Villa Krause MD Primary Care Provider [phone] Encounter Details Date Type Department Care Team (Latest Contact Info) Description 04/28/2014 2:19 PM EST - 04/28/2014 11:59 PM EST Hospital Encounter XRay at [address] [place] [phone] CLINIC, Villa Balbuena MD [address] [place], [place] [id number] Discharge Disposition: Home Social History Tobacco Use Types Packs/Day Years Used Date Smoking Tobacco: Never Sex and Gender Information Value Date Recorded Sex Assigned at Not on file Gender Identity Not on file Sexual Orientation Not on file documented as of this encounter Medications at Time of Discharge Medication Sig Dispensed Refills Start Date End Date desonide (DESOWEN) 0.05 % CreamIndications:Marydel titis,Seborrheic dermatitis Once daily to the forehead [...] 2:00 PM EDT Office Visit Hematology/Oncology at [address] [phone] Jeffery Sanz MD [facility] DR [place] [address] Mary Nails, JESUS ALBERTO [address] [place] [address] DR MEDICAL ONCOLOGY [place], [place] [address] 01/01/2025 2:30 PM EDT Infusion Hematology Oncology at [address] [phone] 01/14/2025 11:00 AM EDT Laboratory Appointment Lab [address] [place] [phone] 01/14/2025 1:[address] [place] [phone] Regino Carolina MD [facility] [place] [address] 01/14/2025 2:00 PM EDT Office [place] [address] Regino Carolina MD [facility] GENER[place] [address] documented as of this encounter Procedures Procedure [...] BMD measurements and plots are available in [employer] under the imaging tab. Paper copies will be sent to providers without [employer] access. If you have received this report without the data sheet and do not have access to [employer], please contact Radiology Reel Blade Bender Furnace Tender at [phone] Monday thru Monday 8am-4pm. Narrative 04/30/2014 11:12 [...] copies will be sent to providers without [employer] access.If you have received this report without the data sheet and do not haveaccess to [employer], please contact Radiology Reel Blade Bender Furnace Tender at [phone] Monday thruFrid 8am-4pm. Steph Schulz MD IMG DEXA ORDERABLES documented in this encounter Visit Diagnoses Not on filedocumented in this encounter Care Teams Auto Body Straightener Relationship Specialty Start Date End Date Villa Krause MD [address] [place] [address] PCP - General 12/25/13 10/10/16 documented as of this encounter
--- OUTSIDE RECORDS SUMMARY | 2024-05-10 15:00 | XMS_ITS | Encounter Summary ---
Author Organization [facility] Address [facility] [place] [address] Care Team Providers Care Yarder Boss Name Role Phone Maria Esther Street MD Primary Care Provider [phone] Reason for Visit * Reason Comments Follow-up Skin Check Encounter Details Date Type Department Care Team (Late st Contact Info) Description 10/12/2017 11:30 AM EDT Office Visit Dermatology at [address] [phone] Estela Cavazos MD [facility] [place] [address] Solar lentigo; Seborrheic keratosis; Multiple benign nevi; [...] MD. Estela Cavazos MD Section of Dermatology [facility] documented in this encounter Plan of Treatment Upcoming Encounters Date Type Department Care Team (Late st Contact Info) Description 01/01/2025 2:00 PM EDT Office Visit Hematology/Oncology at [address] [phone] Jeffery Sanz MD [facility] DR [place] [address] Mary Nails APRN [address] [place] [address] [place] [address] 01/01/2025 2:30 PM EDT Infusion Hematology Oncology at [address] [phone] 01/14/2025 11:00 AM EDT Laboratory Appointment Lab [address] [place] [phone] 01/14/2025 1:[address] [place] [phone] Regino Carolina MD [facility] [place] [address] 01/14/2025 2:00 PM EDT Office Visit [place] [address] Regino Carolina MD [facility] [place] [address] documented as of this encounter Visit Diagnoses Diagnosis Solar lentigo Other dyschromia Seborrheic keratosis Other seborrheic keratosis Multiple benign nevi Benign neoplasm of skin, site unspecified Reyes angioma Nevus, non-neoplastic documented in this encounter Care Teams Yarder Boss Relationship Specialty Start Date End Date Maria Esther Street MD [address] [place] [address] [place] [address] PCP - General Family Medicine 10/11/16 09/22/19 documented as of this encounter
--- OUTSIDE RECORDS SUMMARY | 2024-05-10 15:00 | XMS_ITS | Encounter Summary ---
Author Organization [facility] [place] [address] Care Team Providers Care District Sales Representative Name Role Phone Steph Schulz MD Primary Care Provider [phone] Encounter Details Date Type Department Care Team (Latest Contact Info) Description 04/25/2013 11:19 AM EST - 04/25/2013 11:59 PM [facility] Hospital Encounter [place] [address] CLINIC, Steph Cason MD [address] [place], [place] [address] Discharge Disposition: Home Social History Tobacco Use [...] PM EDT Office Visit Hematology/Oncology at [address] [phone] Jeffery Sanz MD [facility] DR HEMATOLOGY [place] [address] Mary Nails APRN [address] [place] [address] DR MEDICAL ONCOLOGY [place], [place] [address] 01/01/2025 2:30 PM EDT Infusion Hematology Oncology at [address] [phone] 01/14/2025 11:00 AM EDT Laboratory Appointment Lab [place] [phone] 01/14/2025 1:[address] [place] [phone] Regino Carolian MD [facility] [place] [address] 01/14/2025 2:00 PM EDT Office Visit [place] [phone] Regino Carolina MD [facility] [place] [address] documented as of this encounter Procedures Procedure [...] on filedocumented in this encounter Care Teams District Sales Representative Relationship Specialty Start Date End Date Steph Schulz MD [address] [place] [address] PCP - General 03/09/10 12/24/13 documented as of this encounter
--- OUTSIDE RECORDS SUMMARY | 2024-05-10 15:00 | XMS_ITS | Encounter Summary ---
Author Organization [facility] [place] [address] Care Team Providers Care Institutional Custodian Name Role Phone Villa Krause MD Primary Care Provider [phone] Reason for Visit * Reason Comments Skin Check Encounter Details Date Type Department Care Team (Late st Contact Info) Description 09/18/2014 10:30 AM EDT Follow-Up Dermatology at [facility] [address] [place] [address] Estela Velasquez MD [facility] DR [place] [address] [place] (actinic keratosis); SK (seborrheic keratosis); Solar lentigo Discharge Disposition: Home Social History Tobacco Use Types Packs/Day Years Used Date Smoking Tobacco: Never Sex and Gender Information Value Date Recorded Sex Assigned at Not on file Gender Identity Not on file Sexual Orientation Not on file documented as of this encounter Progress Notes * Yuki Valencia CMA - 09/18/2014 10:14 AM EDT DERMATOLOGY ESTABLISHED PATIENT CLINIC NOTE Date of service: 09/18/2014 Linda Serrano : 1945 Provider: Estela Velasquez MD PROBLEM: Skin check SKIN HISTORY: [facility] back January 2010 Lentigines HPI Linda Serrano [...] D. 0.2-0.3cm scaly irregular pink papule left episcopal ASSESSMENT/PLAN: A. seborrheic keratosis B. Dermal nevi- reassured about todays exam. C. Lentigo -The nature of sun-induced photo-aging and skin cancers is discussed. Sun avoidance, protective clothing, and the use of 30-SPF sunscreens is advised. Observe closely for skin damage/changes, and call if such occurs. D. actinic keratosis -Procedure Note: Procedure: Destruction of lesion(s) with cryotherapy. Number: 1 Location: left episcopal Discussed procedure and expectations including risks (including risk of hypopigmentation) and benefits. Verbal consent obtained. Frozen with LN2, 15-30 second thaw time, TWICE. There were no complications; the patient tolerated the procedure well. Post-procedure expectations and wound care were reviewed. RTC: 1 year Note initiated by: Yuki Valencia CMA Routed to physician for review and changes: Estela Velasquez MD Section of Dermatology [facility] documented in this encounter Plan of Treatment Upcoming Encounters Date Type Department Care Team (Late st Contact Info) Description 01/01/2025 2:00 PM EDT Office Visit Hematology/Oncology at [address] [address] Jeffery Sanz MD [facility] DR HEMAT[place]Y [place] [address] Mary Nails APRN [address] [place] [address] DR MEDICAL ONCOLOGY [place], [place] [address] 01/01/2025 2:30 PM EDT Infusion Hematology Oncology at [address] [phone] 01/14/2025 11:00 AM EDT Laboratory Appointment Lab [place] [phone] 01/14/2025 1:[address] [place] [phone] Regino Carolina MD [facility] [place] [address] 01/14/2025 2:00 PM EDT Office [place] [phone] Regino Carolina MD [facility] [place] [address] documented as of this encounter Visit Diagnoses Diagnosis AK (actinic keratosis) Actinic keratosis SK (seborrheic keratosis) Other seborrheic keratosis Solar lentigo Other dyschromia documented in this encounter Care Teams Institutional Custodian Relationship Specialty Start Date End Date Villa Krause MD [address] [place], [place] [address] PCP - General 12/25/13 10/10/16 documented as of this encounter
--- OUTSIDE RECORDS SUMMARY | 2024-05-10 15:00 | XMS_ITS | Encounter Summary ---
Author Organization [facility] [place] [address] Care Team Providers Care Regulatory Law Specialist Name Role Phone Maria Esther Street MD Primary Care Provider [phone] Reason for Visit * Reason Comments Dermatitis Encounter Details Date Type Department Care Team (Late st Contact Info) Description 10/11/2016 10:45 AM EDT Office Visit Dermatology at [facility] [address] [place] [address] Estela Velasquez MD [facility] [address] [place] [address] Seborrheic dermatitis; AK (actinic keratosis); Solar lentigo; [...] Velasquez MD PROBLEM: worsening rash SKIN HISTORY: [facility], back, January 2010 Lentigines Seborrheic Keratosis HPI [...] in the presence of Dr. Velasquez. FABIOLA EUBANKSMARY BAB[facility] RAND[facility] CANCER CENTERARD, SPORTS PHYSIOLOGIST I am documenting this encounter acting as the scribe for and in the presence of Dr. Velasquez: Jen Hernandez, Clinical Scribe I performed the above scribed service and agree with the accuracy of the documentation in this encounter. Estela Velasquez MD Section of Dermatology [facility] documented in this encounter Plan of Treatment Upcoming Encounters Date Type Department Care Team (Late st Contact Info) Description 01/01/2025 2:00 PM EDT Office Visit Hematology/Oncology at [address] [phone] Jeffery Sanz MD [facility] DR [place] [address] Mary Nails APRN [address] [place] [address] DR MEDICAL ONCOLOGY [place], [place] [phone] 01/01/2025 2:30 PM EDT Infusion Hematology Oncology at [address] [phone] 01/14/2025 11:00 AM EDT Laboratory Appointment Lab [place] [phone] 01/14/2025 1:[address] [place] [phone] Regino Carolina MD [facility] [address] 01/14/2025 2:00 PM EDT Office [place] [phone] Regino Carolina MD [facility] [place] [address] documented as of this encounter Visit Diagnoses Diagnosis Seborrheic dermatitis Seborrheic dermatitis, unspecified AK (actinic keratosis) Actinic keratosis Solar lentigo Other dyschromia History of basal cell cancer Personal history of other malignant neoplasm of skin Seborrheic keratosis Other seborrheic keratosis documented in this encounter Care Teams Regulatory Law Specialist Relationship Specialty Start Date End Date Maria Esther Street MD [address] [place] [address] [place] [phone] PCP - General Family Medicine 10/11/16 09/22/19 documented as of this encounter
--- OUTSIDE RECORDS SUMMARY | 2024-05-10 15:00 | XMS_ITS | Encounter Summary ---
Author Organization [facility] Address [facility] [place] [address] Care Team Providers Care Human Resources Office Manager Name Role Phone Zeny James APRN Primary Care Provider Encounter Details Date Type Department Care Team (Late st Contact Info) Description 10/02/2019 Telephone [place] [address] Madina Orellana MD [facility] [place] [address] Social History Tobacco Use Types Packs/Day Years [...] received a call from Dr. Neff at [facility]. Briefly, this is a 74 yo woman [...] MD Gastroenterology PGY-5 10/02/2019 2:18 PM Pager #[phone] documented in this encounter Plan of Treatment Upcoming Encounters Date Type Department Care Team (Late st Contact Info) Description 01/01/2025 2:00 PM EDT Office Visit Hematology/Oncology at [address] [phone] Jeffery Sanz MD [facility] DR H[place]ATOLOGY [place] [address] Mary Nails APRN [address] [place] [address] [place] [address] 01/01/2025 2:30 PM EDT Infusion Hematology Oncology at [address] [phone] 01/14/2025 11:00 AM EDT Laboratory Appointment Lab [address] [place] [phone] 01/14/2025 1:[address] [place] [phone] Regino Carolina MD [facility] [place] [address] 01/14/2025 2:00 PM EDT Office Visit [place] [address] Regino Carolina MD [facility] [place] [address] documented as of this encounter Visit Diagnoses Not on filedocumented in this encounter Care Teams Human Resources Office Manager Relationship Specialty Start Date End Date Zeny James APRN [address] [place] [address] [address] [place] [address] PCP - General Family Medicine 09/23/19 documented as of this encounter
--- OUTSIDE RECORDS SUMMARY | 2024-05-10 15:00 | XMS_ITS | Encounter Summary ---
Author Organization [facility] Address [facility] [place] [address] Care Team Providers Care Name Role Phone Steph Schulz MD Primary Care Provider Encounter Details Date Type Department Care Team (Late st Contact Info) Description 03/26/2012 12:32 PM EST - 03/26/2012 11:59 PM EST Hospital En[place] [address] Social History Tobacco Use Types Packs/Day Years [...] PM EDT Office Visit Hematology/Oncology at [address] [phone] Jeffery Sanz MD [facility] DR HEMATOLOGY [place] [address] Mary Nails APRN [address] [place] [address] DR MEDICAL ONCOLOGY [place], [place] [phone] 01/01/2025 2:30 PM EDT Infusion Hematology Oncology at [address] [phone] 01/14/2025 11:00 AM EDT Laboratory Appointment Lab 3[place] [phone] 01/14/2025 1:[address] [place] [phone] Regino Carolina MD [facility] [place] [address] 01/14/2025 2:00 PM EDT Office Visit [place] [phone] Regino Carolina MD [facility] [place] [address] documented as of this encounter Procedures Procedure [...] on filedocumented in this encounter Care Teams Relationship Specialty Start Date End Date Steph Schulz MD [address] [place] [address] PCP - General 03/09/10 12/24/13 documented as of this encounter
--- OUTSIDE RECORDS SUMMARY | 2024-05-10 15:00 | XMS_ITS | Encounter Summary ---
Author Organization [facility] [place] [address] Care Team Providers Care Ornamental Plaster Sticker Name Role Phone Zeny James APRN Primary Care Provider [phone] Reason for Referral * Consultation (Urgent) - Closed Specialty Diagnoses / Procedures Referred By Nir potts Referred To Contact Gastroenterology Diagnoses Other chronic pancreatitis Ralf Urrutia MD [facility] DR [place] [address] [facility] Endoscopy [address] [place] [phone] Referral ID Status Reason Start Date Expiration Date V isits Requested Visits Authorized [id number] Closed Consult, Test & Treat 11/04/2019 11/03/2020 1 1 Reason for Visit * Consultation (Routine) - Closed Specialty Diagnoses / Procedures Referred By Nir potts Referred To Contact Gastroenterology Diagnoses Abdominal pain with dilated pancreatic duct, chronic pancreatitis David Kovacs, DO [address] [place] [address] [facility] [address] [place] [phone] Referral ID Status Reason Start Date Expiration Date Visits Re quested Visits Authorized [id number] Closed 10/11/2019 10/10/2020 1 1 Encounter Details Date Type Department Care Team (Latest Contact Info) Description 11/04/2019 3:00 PM EDT TH Visit (TeleHealth) [place] [address] Ralf Urrutia MD [facility] DR [place] [address] Other chronic pancreatitis Social History Tobacco Use Types Packs/Day Years Used Date Smoking Tobacco: Never Smokeless Tobacco: Never Sex and Gender Information Value Date Recorded Sex Assigned at Not on file Gender Identity Not on file Sexual Orientation Not on file documented as of this encounter Progress Notes * Ralf Urrutia MD - 11/04/2019 3:00 PM EDT [facility] [place] [facility] Section of Gastroenterology and Hepatology Outpatient Consultation [facility] Gastroenterology Telephone Note Primary care provider: Zeny [...] pain, across abdomen, 9 PM went to [facility] ED. UNderwent CT scan, declined admission, returned [...] DIAGNOSTIC performed by Izzy Johnson MD at [facility] ENDOSCOPY Social History: reports that she [...] GGT, ALKPHOS, BILITOT IMPRESSION AND RECOMMENDATIONS: Linda Serrano is a 74 y.o. woman with a [...] patient on above. Ralf Urrutia MD Zeny James, HAND FINISHER [address] [place] [address] David Kovacs, [address] [place] [address] Gastroenterology Section [facility] [place] [facility] documented in this encounter Plan of Treatment Upcoming Encounters Date Type Department Care Team (Late st Contact Info) Description 01/01/2025 2:00 PM EDT Office Visit Hematology/Oncology at [address] [phone] Jeffery Sanz MD [facility] DR HEMATOLOGY [place] [address] Mary Nails, HAND FINISHER [address] [place] [address] DR MEDICAL ONCOLOGY [place], [place] [address] 01/01/2025 2:30 PM EDT Infusion Hematology Oncology at [address] [phone] 01/14/2025 11:00 AM EDT Laboratory Appointment Lab [address] [place] [address] 01/14/2025 1:[address] [place] [address] Regino Carolina MD [facility] [place] [address] 01/14/2025 2:00 PM EDT Office [place] [address] Regino Carolina MD [facility] [place] [address] Scheduled Referrals Name Type Priority Associated Diagnoses Order Schedule Referral to Gastroenterology Outpatient Referral Routine Other Chronic Pancreatitis Ordered: 11/04/2019 documented as of this encounter Visit Diagnoses Diagnosis Other chronic pancreatitis documented in this encounter Care Teams Ornamental Plaster Sticker Relationship Specialty Start Date End Date Zeny James APRN [address] [place] [address] [address] [place] [address] PCP - General Family Medicine 09/23/19 documented as of this encounter
--- OUTSIDE RECORDS SUMMARY | 2024-05-10 15:00 | XMS_ITS | Encounter Summary ---
Author Organization [place] [address] Care Team Providers Care Laborer Name Role Phone Maria Esther Street MD Primary Care Provider Encounter Details Date Type Department Care Team (Latest Contact Info) Description 10/12/2017 12:09 PM EDT - 10/12/2017 11:59 PM EDT Hospital En[place] [address] MD [address] [place] [phone] Encounter for screening mammogram for breast [...] 2 10/11/2016 11/25/2019 desonide (DESOWEN) 0.05 % CreamIndications:Takilma titis,Seborrheic dermatitis Once daily to the forehead [...] PM EDT Office Visit Hematology/Oncology at [address] [phone] Jeffery Sanz MD [facility] [place]AT[place] [address] Mary Nails APRN [address] [place] [address] DR MEDICAL ONCOLOGY [place], [place] [address] 01/01/2025 2:30 PM EDT Infusion Hematology Oncology at [address] [phone] 01/14/2025 11:00 AM EDT Laboratory Appointment Lab 3[place] [phone] 01/14/2025 1:[address] [place] [phone] Regino Carolina MD [facility] [place] [address] 01/14/2025 2:00 PM EDT Office [place] [phone] Regino Carolina MD [facility] [place] [address] documented as of this encounter Procedures Procedure [...] BI-RADS Category 2: Benign findings. * ??[employer] and The Society of [...] cancer documented in this encounter Care Teams Laborer Relationship Specialty Start Date End Date Maria Esther Street MD [address] [place] [address] [place] [address] PCP - General Family Medicine 10/11/16 09/22/19 documented as of this encounter
--- OUTSIDE RECORDS SUMMARY | 2024-05-10 15:00 | XMS_ITS | Encounter Summary ---
Author Organization [facility] Address [facility] [place] [address] Care Team Providers Care Highway Truck Driver Name Role Phone Steph Schulz MD Primary Care Provider [phone] Reason for Visit * Reason Comments Skin Check Encounter Details Date Type Department Care Team (Late st Contact Info) Description 12/22/2011 10:45 AM EDT Follow-Up Dermatology [place] [id number] Estela Velasquez MD [facility] DR [place] [address] Multiple pigmented nevi (Primary Dx); Solar lentigo [...] changes: Estela Velasquez MD Section of Dermatology [facility] documented in this encounter Plan of Treatment Upcoming Encounters Date Type Department Care Team (Late st Contact Info) Description 01/01/2025 2:00 PM EDT Office Visit Hematology/Oncology at [address] [phone] Jeffery Sanz MD [facility] DR HEMATOLOGY [place] [address] Mary Nails APRN [address] [place] [address] DR MEDICAL ONCOLOGY [place], [place] [address] 01/01/2025 2:30 PM EDT Infusion Hematology Oncology at [address] [phone] 01/14/2025 11:00 AM EDT Laboratory Appointment Lab [address] [place] [phone] 01/14/2025 1:[address] [place] [phone] Regino Carolina MD [facility] [place] [address] 01/14/2025 2:00 PM EDT Office Visit [place] [phone] Regino Carolina MD [facility] [place] [address] documented as of this encounter Visit Diagnoses Diagnosis Multiple pigmented nevi- Primary Benign neoplasm of skin, site unspecified Solar lentigo Other dyschromia documented in this encounter Care Teams Highway Truck Driver Relationship Specialty Start Date End Date Steph Schulz MD [address] [place] [address] PCP - General 03/09/10 12/24/13 documented as of this encounter
--- OUTSIDE RECORDS SUMMARY | 2024-05-10 15:00 | XMS_ITS | Encounter Summary ---
Author Organization [facility] [place] [address] Care Team Providers Care Ash Conveyor Operator Name Role Phone ErikaZaydaZenynataliia GRANDA Primary Care Provider [phone] Encounter Details Date Type Department Care Team (Late Contact Info) Description 10/01/2019 12:05 AM EDT Ancillary Procedure Radiology Library at [facility] [place] [address] Zeny James APRN [address] [place], [place] [address] Social History Tobacco Use Types Packs/Day Years [...] PM EDT Office Visit Hematology/Oncology at [address] [phone] Jeffery Sanz MD [facility] DR HEMATOLOGY [place] [address] Mary Nails APRN [address] [place] [address] DR MEDICAL ONCOLOGY [place], [place] [phone] 01/01/2025 2:30 PM EDT Infusion Hematology Oncology at [address] [phone] 01/14/2025 11:00 AM EDT Laboratory Appointment Lab [address] [place] [address] 01/14/2025 1:[address] [place] [phone] Regino Carolina MD [facility] [place] [address] 01/14/2025 2:00 PM EDT Office [place] [phone] Regino Carolina MD [facility] GENERAL SURGERY [place], [place] [phone] documented as of this encounter Procedures Procedure Name Priority Date/Time Associated Diagnosis Comments FILM LIBRARY STORAGE ONLY MR ABDOMEN Routine 10/01/2019 12:05 AM EDT documented in this encounter Results * Film Library- Storage Only MR Abdomen (10/01/2019 12:05 AM EDT) Narrative [facility] - 10/02/2019 11:33 AM EDT This exam is auto-finalizing. It's purpose is for storage only. Zeny James APRN IMG FILM LIBRARY OR DERABLES [place], [place] documented in this encounter Visit Diagnoses Not on filedocumented in this encounter Care Teams Ash Conveyor Operator Relationship Specialty Start Date End Date Zeny James APRN [address] [place] [address] PCP - General Family Medicine 09/23/19 documented as of this encounter
--- OUTSIDE RECORDS SUMMARY | 2024-05-10 15:00 | XMS_ITS | Encounter Summary ---
Author Organization [facility] Address [facility] [place] [address] Care Team Providers Care Possum Trapper Name Role Phone Zeny James APRN Primary Care Provider Encounter Details Date Type Department Care Team (Latest Contact Info) Description 11/15/2019 11:36 AM EDT - 11/15/2019 2:11 PM EDT Hospital Encounter [place] [address] Ralf Urrutia MD [facility] [place] [address] Discharge Disposition: Home Social History Tobacco Use [...] Care Everywhere. * Ultrasound: Endoscopic (Oral): Post-op (Citizen [place]) documented in this encounter Medications at Time [...] 2 10/11/2016 11/25/2019 desonide (DESOWEN) 0.05 % CreamIndications:[place]copola titis,Seborrheic dermatitis Once daily to the forehead [...] Urrutia MD - 11/15/2019 12:44 PM EDT [facility] Operative Note Patient Name: Linda Serrano : [id number] MR#: [id number] Case Date: 11/15/2019 Surgeon: Surgeon(s) and Role: [...] PM EDT Office Visit Hematology/Oncology at [address] [phone] Jeffery Sanz MD [facility] [place] [address] Mary Nails [address] MEDICAL ONCOLOGY [place], [place] [phone] 01/01/2025 2:30 PM EDT Infusion Hematology Oncology at [address] [phone] 01/14/2025 11:00 AM EDT Laboratory Appointment Lab [place] [phone] 01/14/2025 1:[address] [place] [address] Regino Carolina MD [facility] [place] [address] 01/14/2025 2:00 PM EDT Office Visit [place] [phone] Regino Carolina MD [facility] [place] [address] Pending Results Name Type Priority Associated Diagnoses Date /Time XR ERCP Imaging Storage Only Routine 10/17 12:11 PM EDT Scheduled Orders Name Type Priority Associated Diagnoses Orde r Schedule XR ERCP Imaging Storage Only Routine Once PRN (for Radiant use) for 1 Occurrences starting 11/15/2019 until 11/15/2019 documented as of this encounter Procedures Procedure Name Priority Date/Time Associated Diagnosis Comments NON-CONTINUOUS PROCESS MACHINE OPERATOR FINAL REPORT Routine 11/15/2019 12:44 PM EDT HC CARCINO-EMBRYONIC AG ASSAY Routine 11/15/2019 12:44 PM EDT HC AMYLASE Routine 11/15/2019 12:44 PM EDT CYTOPATHOLOGY NON-GYNECOLOGICAL Routine 11/15/2019 12:44 PM EDT Endoscopic Us Exam, Esoph ([id number]) 11/15/2019 12:09 PM EDT Other chronic pancreatitis Please schedule this patient with me for eus and ercp in the next 3 weeks - 90min with anesthesia okay to use consult time=. UPPER EUS-ENDOSCOPIC ULTRASOUND Routine 11/15/2019 12:07 PM EDT documented in this encounter Results * Non-Senior Human Resources Representative Final Report (11/15/2019 12:44 PM EDT) Diagnosis Discussion [id number] ? Location: ; EA09; A The signing pathologist has (i) examined the relevant preparation(s) for the specimen(s) and (ii) rendered or confirmed the diagnosis(es). . ? Non-Senior Human Resources Representative Final DIAGNOSIS Neoplastic Cells Present See discussion. Electronically signed by: ??Linda CLANCY PhD, Heath Martinez Verified: ??11/18/2019 ?Pathologist Performed at: ??-[facility] Dept. of [place]ology, [place], [place] DISCUSSION Pancreas (EUS-guided FNA): Abundant macrophages, [...] Cell Block 1. 11/18/2019 3:13 PM EDT [facility] PANCREATIC STRUCTURE / Unknown 11/15/2019 12:44 PM EDT 11/15/2019 12:44 PM EDT Ralf Urrutia MD PATHOLOGY/CYTOLOGY O RDERABLES Performing Organization Address [facility]/ZIP Co de Phone Number [facility] [place] [address] * Amylase Level Body Fluid Pancreatic Cyst (11/15/2019 12:44 PM EDT) Amylase, Fluid 783 unit/L [facility] Comment: No reference range is available for the specimen type submitted. ??The performance of this assay for the submitted type has not been validated and results should be interpreted accordingly and with regard to the patient's clinical status. Amylase BF Type Pancreatic cyst [facility] Pancreas cyst fluid specimen (specimen) 11/15/2019 12:44 PM EDT 11/15/2019 1:56 PM EDT Narrative Resulting Agency Comment Spec In Lab Ralf Urrutia MD BODY FLUIDS AND STOO LS ORDERABLES Performing Organization Address [facility]/ZIP Co de Phone Number [facility] [place] [address] * CEA Body Fluid Pancreatic Cyst (11/15/2019 12:44 PM EDT) Carcinoembroyonic Antigen, Fluid 691.0 ng/mL [facility] Comment: No reference range is available for the specimen type submitted. ??The performance of this assay for the submitted type has not been validated and results should be interpreted accordingly and with regard to the patient's clinical status. CEA BF Type Pancreatic cyst [facility] Pancreas cyst fluid specimen (specimen) 11/15/2019 12:44 PM EDT 11/15/2019 1:56 PM EDT Narrative Resulting Agency Comment Spec In Lab Ralf Urrutia MD BODY FLUIDS AND STOO LS ORDERABLES Performing Organization Address [facility]/ZIP Co de Phone Number [facility] [place] [address] * Cytopathology Non-Gynecological (11/15/2019 12:44 PM EDT) AP Specimen 11/15/2019 12:4 4 PM EDT 11/15/2019 12:44 PM EDT Narrative [facility] - 11/15/2019 12:44 PM EDT Specimen requisition ordered. ??Separate Pathology report to follow Ralf Urrutia MD PATHOLOGY/CYTOLOGY O RDERABLES Performing Organization Address City/[facility]/[place] [address] * UPPER EUS-ENDOSCOPIC ULTRASOUND (11/15/2019 12:07 PM EDT) UPPER ENDOSCOPIC ULTRASOUND [facility] Endoscopy Procedure Date: 11/15/2019 12:07 PM ? Patient Name: Linda Maggie ? Date of : 1945 ? Age: 74 ? Order #: [id number] ? Instrument Name: [id number] Christinaaner ? Procedure: ? Upper EUS Indications: ? Suspected solid pancreatic neoplasm, ? Suspected cystic pancreatic neoplasm Providers: ? Ralf Urrutia, Dino Hernandez, ? Gina MADISON Referring : ? Medicines: ? General Anesthesia Complications: ? [...] Procedure Code(s): ?? --- Professional --- ? 48690, Esophagogastroduod enoscopy, ? flexible, transoral; with ? [...] of ? digestive tract CPT copyright 2019 [employer]. All rights reserved. The codes documented in this report are preliminary and upon sales representative consultant review may be revised to meet current [...] CRNA) documented in this encounter Care Teams Possum Trapper Relationship Specialty Start Date End Date Zeny James APRN [address] [place] [address] PCP - General Family Medicine 09/23/19 documented as of this encounter
--- OUTSIDE RECORDS SUMMARY | 2024-05-10 15:00 | XMS_ITS | Encounter Summary ---
Author Organization [facility] Address [facility] [place] [address] Care Team Providers Care Family Worker Name Role Phone Villa Krause MD Primary Care Provider [phone] Reason for Visit * Reason Comments Skin Check Encounter Details Date Type Department Care Team (Late st Contact Info) Description 10/08/2015 10:00 AM EDT Office Visit Dermatology at [facility] [address] [place] [address] Estela Velasquez MD [facility] [place] [address] Multiple benign nevi; Reyes angioma; Seborrheic keratosis, [...] changes: Estela Velasquez MD Section of Dermatology [facility] documented in this encounter Plan of Treatment Upcoming Encounters Date Type Department Care Team (Late st Contact Info) Description 01/01/2025 2:00 PM EDT Office Visit Hematology/Oncology at [address] [phone] Jeffery Sanz MD [facility] DR [place] [address] Mary Nails APRN [address] [place] [address] [place] [address] 01/01/2025 2:30 PM EDT Infusion Hematology Oncology at [address] [phone] 01/14/2025 11:00 AM EDT Laboratory Appointment Lab [address] [place] [phone] 01/14/2025 1:[address] [place] [phone] Regino Carolina MD [facility] [place] [address] 01/14/2025 2:00 PM EDT Office Visit [place] [phone] Regino Carolina MD [facility] [place] [address] documented as of this encounter Visit Diagnoses Diagnosis Multiple benign nevi Benign neoplasm of skin, site unspecified Reyes angioma Nevus, non-neoplastic Seborrheic keratosis, inflamed Inflamed seborrheic keratosis Solar lentigo Other dyschromia SK (seborrheic keratosis) Other seborrheic keratosis documented in this encounter Care Teams Family Worker Relationship Specialty Start Date End Date Villa Krause MD [address] [place] [address] PCP - General 12/25/13 10/10/16 documented as of this encounter
--- OUTSIDE RECORDS SUMMARY | 2024-05-10 15:00 | XMS_ITS | Encounter Summary ---
Author Organization [facility] Address [facility] [place] [address] Care Team Providers Care Rocket Motor Mechanic Name Role Phone Villa Krause MD Primary Care Provider [phone] Reason for Visit * Reason Comments Skin Lesion Encounter Details Date Type Department Care Team (Late st Contact Info) Description 01/07/2014 9:45 AM EDT Follow-Up Dermatology at [facility] [address] [place] [address] Estela Velasquez MD [facility] DR MARCUS [place] [address] Dermatitis (Primary Dx); Seborrheic dermatitis Discharge Disposition: [...] in the presence of Dr. Velasquez. FABIOLA EUBANKSEGAND-JOÃO, DRILLER HAND I performed the above scribed service and agree with the accuracy of the documentation in this encounter. Estela Velasquez MD Section of Dermatology [facility] documented in this encounter Plan of Treatment Upcoming Encounters Date Type Department Care Team (Late st Contact Info) Description 01/01/2025 2:00 PM EDT Office Visit Hematology/Oncology at [address] [phone] Jeffery Sanz MD [facility] DR HEMATOLOGY [place] [address] Mary Nails APRN [address] [place] [address] [place] [address] 01/01/2025 2:30 PM EDT Infusion Hematology Oncology at [address] [phone] 01/14/2025 11:00 AM EDT Laboratory Appointment Lab [address] [address] 01/14/2025 1:[address] [place] [address] Regino Carolina MD [facility] [place] [address] 01/14/2025 2:00 PM EDT Office [place] [address] Regino Carolina MD [facility] [place] [address] documented as of this encounter Visit Diagnoses Diagnosis Dermatitis- Primary Contact dermatitis and other eczema, due to unspecified cause Seborrheic dermatitis Seborrheic dermatitis, unspecified documented in this encounter Care Teams Rocket Motor Mechanic Relationship Specialty Start Date End Date Villa Krause MD [address] [place] [address] PCP - General 12/25/13 10/10/16 documented as of this encounter
--- OUTSIDE RECORDS SUMMARY | 2024-05-10 15:00 | XMS_ITS | Encounter Summary ---
Author Organization [facility] [place] [address] Care Team Providers Care Advertising Project Manager Name Role Phone Zeny James APRN Primary Care Provider [phone] Encounter Details Date Type Department Care Team (Late st Contact Info) Description 2019 Ancillary Procedure Radiology Library at [facility] [place] [address] Zeny James APRN [address] [place], [place] [id number] Social History Tobacco Use Types Packs/Day Years [...] 2:00 PM EDT Office Visit Hematology/Oncology at [address] [phone] Jeffery Sanz MD [facility] HEMATOLOGY [place] [address] Mary Nails APRN [address] [place] [address] DR MEDICAL ONCOLOGY [place], [place] [phone] 01/01/2025 2:30 PM EDT Infusion Hematology Oncology at [address] [place] [address] 01/14/2025 11:00 AM EDT Laboratory Appointment Lab [address] [place] [address] 01/14/2025 1:[address] [place] [phone] Regino Carolina MD [facility] [place] [address] 01/14/2025 2:00 PM EDT Office [place] [phone] Regino Carolina MD [facility] [place] [address] documented as of this encounter Procedures Procedure Name Priority Date/Time Associated Diagnosis Comments FILM LIBRARY STORAGE ONLY CT ABDOMEN AND PELVIS Routine 2019 12:00 AM EDT documented in this encounter Results * Film Library- Storage Only CT Abdomen & Pelvis (2019 12:00 AM EDT) Narrative [facility] - 10/02/2019 11:30 AM EDT This exam is auto-finalizing. It's purpose is for storage only. Zeny James APRN IMG FILM LIBRARY OR DERABLES [place], [place] documented in this encounter Visit Diagnoses Not on filedocumented in this encounter Care Teams Advertising Project Manager Relationship Specialty Start Date End Date Zeny James APRN [address] [place] [address] PCP - General Family Medicine 09/23/19 documented as of this encounter
--- OUTSIDE RECORDS SUMMARY | 2024-05-10 15:00 | XMS_ITS | Encounter Summary ---
Author Organization [facility] Address [facility] [place] [address] Care Team Providers Care Real Estate Transaction Manager Name Role Phone Steph Schulz MD Primary Care Provider [phone] Reason for Visit * Reason Comments Skin Check spot on arm Encounter Details Date Type Department Care Team (Late st Contact Info) Description 11/11/2010 5:15 PM EDT [place] [address] Estela Velasquez MD [facility] [place] [address] Seborrheic keratosis (Primary Dx); Lentigo; Multiple pigmented [...] Velasquez MD PROBLEM: Skin Exam SKIN HISTORY: [facility] back January 2010 Lentigines [...] changes: Estela Velasquez MD Section of Dermatology [facility] documented in this encounter Plan of Treatment Upcoming Encounters Date Type Department Care Team (Late st Contact Info) Description 01/01/2025 2:00 PM EDT Office Visit Hematology/Oncology at [address] [phone] Jeffery Sanz MD [facility] DR HEMATOLOGY [place] [address] Mary Nails APRN [address] [place] [address] [place] [address] 01/01/2025 2:30 PM EDT Infusion Hematology Oncology at [address] [phone] 01/14/2025 11:00 AM EDT Laboratory Appointment Lab [address] [address] 01/14/2025 1:[address] [place] [address] Regino Carolina MD [facility] [place] [address] 01/14/2025 2:00 PM EDT Office [place] [address] Regino Carolina MD [facility] [place] [address] documented as of this encounter Visit Diagnoses Diagnosis Seborrheic keratosis- Primary Other seborrheic keratosis Lentigo Other dyschromia Multiple pigmented nevi Benign neoplasm of skin, site unspecified documented in this encounter Care Teams Real Estate Transaction Manager Relationship Specialty Start Date End Date Steph Schulz MD [address] [place] [address] PCP - General 03/09/10 12/24/13 documented as of this encounter
--- OUTSIDE RECORDS SUMMARY | 2024-05-10 15:00 | XMS_ITS | Encounter Summary ---
Author Organization [facility] Address [facility] [place] [address] Care Team Providers Care Video Coordinator Name Role Phone Villa Krause MD Primary Care Provider [phone] Encounter Details Date Type Department Care Team (Latest Contact Info) Description 01/07/2014 11:39 AM EDT - 01/07/2014 4:05 PM EDT Hospital En[place] [address] Sangeetha Bangura MD [facility] [place] [address] Izzy Johnson MD [address] [place] [address] Discharge Disposition: Home Social History Tobacco Use [...] you need to be checked. Monday-Monday Clinic [phone] 8a-5p Same Day Endo [phone] 7a-8p Otherwise contact [phone] and ask to speak to the pharmaceutical sales representative signal person Follow up care is a gonsalez part of your treatment and safety. Be sure to make and go to all appointments, and call your doctor if you are having problems. Discharge instructions reviewed with patient who expresses understanding documented in this encounter Medications at Time of Discharge Medication Sig Dispensed Refills Start Date End Date desonide (DESOWEN) 0.05 % CreamIndications:[place] titis,Seborrheic dermatitis Once daily to the forehead [...] Johnson MD - 01/08/2014 7:35 AM EDT [facility] Operative Note Patient Name: Linda Serrano : [id number] MR#: [id number] Case Date: 01/07/2014 Surgeon: Surgeon(s) and Role: [...] Upcoming Encounters Date Type Department Care Team (Mike Contact Info) Description 01/01/2025 2:00 PM EDT Office Visit Hematology/Oncology at [address] [phone] Jeffery Sanz MD [facility] DR [place] [address] Mary Nails APRN [address] [place] [address] DR MEDICAL ONCOLOGY [place], [place] [phone] 01/01/2025 2:30 PM EDT Infusion Hematology Oncology at [address] [phone] 01/14/2025 11:00 AM EDT Laboratory Appointment Lab [address] [place] [phone] 01/14/2025 1:[address] [place] [place] [phone] Regino Carolina MD [facility] [place] [address] 01/14/2025 2:00 PM EDT Office [place] [address] Regino Carolina MD [facility] [place] [address] documented as of this encounter Procedures Procedure Name Priority Date/Time Associated Diagnosis Comments COLONOSCOPY, DIAGNOSTIC (WRVU 3.26) 01/07/2014 12:56 PM EDT Surv 10 yr 12/24/03 COLONOSCOPY Routine 01/07/2014 12:22 PM EDT documented in this encounter Results * COLONOSCOPY (01/07/2014 12:22 PM EDT) COLONOSCOPY [facility] Endoscopy Patient Name: Linda Serrano ? Procedure Date: 01/07/2014 12:22 PM ? Date of : 1945 ? Age: 68 ? Order #: [id number] ? Procedure: ? Colonoscopy Indications: ? Screening for colorectal malignant ? neoplasm Providers: ? Izzy Johnson MD, Yesi Woodruff, ? RN, Willem Lane, Mixer Crane Operator Referring MD: ?Villa Krause MD Medicines: ? [...] mg/mL injection (CANCELED) ONCE PRN, Starting on e 01/07/14 at 1259, Until Mon01/07/14 at 1805, Sleep, Intra-Operative (Intra-Procedure), Routine 1259 (Given - Provid er: Yesi Woodruff, LOS)1302 (Given - Provider: Yesi Woodruff, LOS)1311 (Given - Provider: Yesi Woodruff, LOS)1317 (Given - Provider: Yesi Woodruff, LOS) documented in this encounter Care Teams Video Coordinator Relationship Specialty Start Date End Date Villa Krause MD [address] [place] [address] PCP - General 12/25/13 10/10/16 documented as of this encounter
--- OUTSIDE RECORDS SUMMARY | 2024-05-10 15:00 | XMS_ITS | Encounter Summary ---
Author Organization [facility] [place] [address] Care Team Providers Care Floor Worker Name Role Phone Zeny James APRN Primary Care Provider Encounter Details Date Type Department Care Team (Late st Contact Info) Description 10/01/2019 Ancillary Procedure Radiology Library at [facility] [place] [place] [address] Zeny James APRN [address] [place], [place] [id number] Social History Tobacco Use Types Packs/Day Years [...] PM EDT Office Visit Hematology/Oncology at [address] [phone] Jeffery Sanz MD [facility] HEMATOLOGY [place] [address] Mary Nails APRN [address] [place] [address] DR MEDICAL ONCOLOGY [place], [place] [phone] 01/01/2025 2:30 PM EDT Infusion Hematology Oncology at [address] [place] [address] 01/14/2025 11:00 AM EDT Laboratory Appointment Lab [address] [place] [address] 01/14/2025 1:[address] [place] [phone] Regino Carolina MD [facility] [address] 01/14/2025 2:00 PM EDT Office [place] [phone] Regino Carolina MD [facility] [address] documented as of this encounter Procedures Procedure Name Priority Date/Time Associated Diagnosis Comments FILM LIBRARY STORAGE ONLY ULTRASOUND STUDY Routine 10/01/2019 12:00 AM EDT documented in this encounter Results * Film Library- Storage Only Ultrasound Study (10/01/2019 12:00 AM EDT) Narrative RAD - 10/02/2019 11:32 AM EDT This exam is auto-finalizing. It's purpose is for storage only. Zeny James APRN IMG FILM LIBRARY OR DERABLES [place], [place] documented in this encounter Visit Diagnoses Not on filedocumented in this encounter Care Teams Floor Worker Relationship Specialty Start Date End Date Zeny James APRN [address] [place] [address] PCP - General Family Medicine 09/23/19 documented as of this encounter
--- OUTSIDE RECORDS SUMMARY | 2024-05-10 15:00 | XMS_ITS | Encounter Summary ---
Author Organization [facility] [place] [address] Care Team Providers Care Taxation Inspector Name Role Phone Stpeh Schulz MD Primary Care Provider [phone] Reason for Visit * Reason Comments Skin Check Encounter Details Date Type Department Care Team (Late st Contact Info) Description 04/25/2013 1:45 PM EST Follow-Up Dermatology at [facility] [address] [place] [address] Estela Velasquez MD [facility] [address] [place] [address] SK (seborrheic keratosis) (Primary Dx); Solar lentigo; [...] Velasquez MD PROBLEM: Skin check SKIN HISTORY: [facility] back January 2010 Lentigines HPI Ms. Serrano [...] encounter. Estela Velasquez MD Section of Dermatology [facility] documented in this encounter Plan of Treatment Upcoming Encounters Date Type Department Care Team (Late st Contact Info) Description 01/01/2025 2:00 PM EDT Office Visit Hematology/Oncology at [address] [phone] Jeffery Sanz MD [facility] DR [place] [address] Mary Nails [address] MEDICAL ONCOLOGY [place], [place] [phone] 01/01/2025 2:30 PM EDT Infusion Hematology Oncology at [address] [phone] 01/14/2025 11:00 AM EDT Laboratory Appointment Lab [place] [phone] 01/14/2025 1:[address] [place] [phone] Regino Carolina MD [facility] [place] [address] 01/14/2025 2:00 PM EDT Office [place] [phone] Regino Carolina MD [facility] [place] [address] documented as of this encounter Visit Diagnoses Diagnosis SK (seborrheic keratosis)- Primary Other seborrheic keratosis Solar lentigo Other dyschromia Nevus Benign neoplasm of skin, site unspecified documented in this encounter Care Teams Taxation Inspector Relationship Specialty Start Date End Date Steph Schulz MD [address] [place] [address] PCP - General 03/09/10 12/24/13 documented as of this encounter
--- OUTSIDE RECORDS SUMMARY | 2024-05-10 15:00 | XMS_ITS | Encounter Summary ---
[place] [address] Care Team Providers Care Jet Worker Name Role Phone Villa Krause MD Primary Care Provider [phone] Encounter Details Date Type Department Care Team (Late st Contact Info) Description 01/07/2014 1:00 PM EDT - 01/07/2014 2:00 PM EDT Surgery [place] [address] Izzy Johnson MD [address] [place] [address] COLONOSCOPY, DIAGNOSTIC (WRVU 3.26) Social History Tobacco [...] you need to be checked. Monday-Monday Clinic [phone] 8a-5p Same Day Endo [phone] 7a-8p Otherwise contact [phone] and ask to speak to the installation drafter salesperson wigs Follow up care is a gonsalez part of your treatment and safety. Be sure to make and go to all appointments, and call your doctor if you are having problems. Discharge instructions reviewed with patient who expresses understanding documented in this encounter Medications at Time of Discharge Medication Sig Dispensed Refills Start Date End Date desonide (DESOWEN) 0.05 % CreamIndications:[place] titis,Seborrheic dermatitis Once daily to the forehead [...] Johnson MD - 01/08/2014 7:35 AM EDT [facility] Operative Note Patient Name: Linda Serrano : [id number] MR#: [id number] Case Date: 01/07/2014 Surgeon: Surgeon(s) and Role: [...] PM EDT Office Visit Hematology/Oncology at [address] [phone] Jeffery Sanz MD [facility] DR HEMATOLOGY [place] [address] Mary Nails APRN [address] [place] [address] DR MEDICAL ONCOLOGY [place], [place] [phone] 01/01/2025 2:30 PM EDT Infusion Hematology Oncology at [address] [phone] 01/14/2025 11:00 AM EDT Laboratory Appointment Lab [address] [place] [phone] 01/14/2025 1:[address] Scan at [place] [phone] Regino Carolina MD [facility] [place] [address] 01/14/2025 2:00 PM EDT Office Visit General Surgery at [place] [phone] Regino Carolina MD [facility] [place] [address] documented as of this encounter Procedures Procedure Name Priority Date/Time Associated Diagnosis Comments COLONOSCOPY, DIAGNOSTIC (WRVU 3.26) 01/07/2014 12:56 PM EDT Surv 10 yr 12/24/03 COLONOSCOPY Routine 01/07/2014 12:22 PM EDT documented in this encounter Results * COLONOSCOPY (01/07/2014 12:22 PM EDT) COLONOSCOPY [facility] Endoscopy Patient Name: Linda Serrano ? Procedure Date: 01/07/2014 12:22 PM ? Date of : 1945 ? Age: 68 ? Order #: [id number] ? Procedure: ? Colonoscopy Indications: ? Screening for colorectal malignant ? neoplasm Providers: ? Izzy Johnson MD, Yesi Woodruff, ? RN, Willem Lane, Consultant Internship Referring : ?Villa Krause MD Medicines: ? [...] RN) documented in this encounter Care Teams Jet Worker Relationship Specialty Start Date End Date Villa Krause MD [address] [place] [address] PCP - General 12/25/13 10/10/16 documented as of this encounter
--- OUTSIDE RECORDS SUMMARY | 2024-05-10 15:00 | XMS_ITS | Encounter Summary ---
Author Organization [facility] [place] [address] Care Team Providers Care Rug Touch Up Painter Name Role Phone Maria Esther Street MD Primary Care Provider Encounter Details Date Type Department Care Team (Latest Contact Info) Description 10/11/2016 11:10 AM EDT - 10/11/2016 11:59 PM EDT Hospital [place] [address] MD [address] [place] [phone] Encounter for screening mammogram for breast [...] 2 10/11/2016 11/25/2019 desonide (DESOWEN) 0.05 % CreamIndications:[place] titis,Seborrheic dermatitis Once daily to the forehead [...] 2:00 PM EDT Office Visit Hematology/Oncology at [address] [phone] Jeffery Sanz MD [facility] DR [place] [address] Mary Nails APRN [address] [place] [address] DR MEDICAL ONCOLOGY [place], [place] [address] 01/01/2025 2:30 PM EDT Infusion Hematology Oncology at [address] [phone] 01/14/2025 11:00 AM EDT Laboratory Appointment Lab [address] [phone] 01/14/2025 1:[address] [place] [phone] Regino Carolina MD [facility] [place] [address] 01/14/2025 2:00 PM EDT Office [place] [phone] Regino Carolina MD [facility] [place] [address] documented as of this encounter Procedures Procedure Name Priority Date/Time Associated Diagnosis Comments MAMMO SCREENING CAD AND KINJAL LEFT Routine 10/11/2016 11:26 AM EDT Encounter for screening mammogram for breast cancer documented in this encounter Results * Mammo Screen CAD and Kinjal Left (Generic) (10/11/2016 11:26 AM EDT) Anatomical [...] No mammographic evidence of malignancy. RECOMMENDATION: [employer] and The Society of [...] cancer documented in this encounter Care Teams Rug Touch Up Painter Relationship Specialty Start Date End Date Maria Esther Street MD [address] [place] [address] [place] [address] PCP - General Family Medicine 10/11/16 09/22/19 documented as of this encounter
--- OUTSIDE RECORDS SUMMARY | 2024-05-10 15:00 | XMS_ITS | Encounter Summary ---
Author Organization [facility] Address [facility] [place] [address] Care Team Providers Care Territory Sales Professional Name Role Phone Steph Schulz MD Primary Care Provider Encounter Details Date Type Department Care Team (Latest Contact Info) Description 03/26/2012 12:32 PM EST - 03/26/2012 11:59 PM [facility] Hospital Encounter XRay at [address] [place] [address] CLINIC, Steph Cason MD [address] [place], [place] [address] Discharge Disposition: Home Social History Tobacco Use [...] PM EDT Office Visit Hematology/Oncology at [address] [phone] Jeffery Sanz MD [facility] DR HEMATOLOGY [place] [address] Mary Nails APRN [address] [place] [address] DR MEDICAL ONCOLOGY [place], [place] [address] 01/01/2025 2:30 PM EDT Infusion Hematology Oncology at [address] [phone] 01/14/2025 11:00 AM EDT Laboratory Appointment Lab [address] [phone] 01/14/2025 1:[address] [place] [place] [phone] Regino Carolina MD [facility] [place] [address] 01/14/2025 2:00 PM EDT Office [place] [phone] Regino Carolina MD [facility] [place] [address] documented as of this encounter Procedures Procedure [...] BMD measurements and plots are available in Sibaritus under the imaging tab. Paper copies will be sent to providers without Sibaritus access. If you have received this report without the data sheet and do not have access to Sibaritus, please contact Radiology Pt Skilled at [phone] Monday thru Monday 8am-4pm. Procedure Note Wesley [...] not haveaccess to E-DH, please contact Radiology Pt Skilled at [phone] Mondaythru Monday 8am-4pm. Steph Schulz MD IMG DEXA ORDERABLES documented in this encounter Visit Diagnoses Not on filedocumented in this encounter Care Teams Territory Sales Professional Relationship Specialty Start Date End Date Steph Schulz MD [address] [place] [address] PCP - General 03/09/10 12/24/13 documented as of this encounter
--- OUTSIDE RECORDS SUMMARY | 2024-05-10 15:00 | XMS_ITS | Encounter Summary ---
Author Organization [facility] [place] [address] Care Team Providers Care Special Warfare Boat Operator Name Role Phone Zeny James JESUS ALBERTO Primary Care Provider Encounter Details Date Type Department Care Team (Late st Contact Info) Description 11/05/2019 [place] [address] Katarzyna Cisneros Social History Tobacco Use Types Packs/Day Years Used Date Smoking Tobacco: Never Smokeless Tobacco: Never Sex and Gender Information Value Date Recorded Sex Assigned at Not on file Gender Identity Not on file Sexual Orientation Not on file documented as of this encounter Miscellaneous Notes * Telephone Encounter - Katarzyna Cisneros - 11/05/2019 11:26 AM EDT Linda Serrano [id number] Diagnosis/Indication: EUS/ ERCP 1. Have you ever [...] PM EDT Office Visit Hematology/Oncology at [address] [phone] Jeffery Sanz MD [facility] DR HEMATOLOGY [place] [address] Mary Nails APRN [address] [place] [address] [place] [address] 01/01/2025 2:30 PM EDT Infusion Hematology Oncology at [address] [phone] 01/14/2025 11:00 AM EDT Laboratory Appointment Lab [address] [phone] 01/14/2025 1:[address] [place] [phone] Regino Carolina MD [facility] [place] [address] 01/14/2025 2:00 PM EDT Office [place] [address] Regnio Carolina MD [facility] [place] [address] documented as of this encounter Visit Diagnoses Not on filedocumented in this encounter Care Teams Special Warfare Boat Operator Relationship Specialty Start Date End Date Zeyn James APRN [address] [place] [address] [address] [place] [address] PCP - General Family Medicine 09/23/19 documented as of this encounter
--- OUTSIDE RECORDS SUMMARY | 2024-05-10 15:00 | XMS_ITS | Encounter Summary ---
Author Organization [facility] [place] [address] Care Team Providers Care Armored Car Guard Name Role Phone Maria Esther Street MD Primary Care Provider [phone] Encounter Details Date Type Department Care Team (Latest Contact Info) Description 11/15/2018 12:06 PM EDT - 11/15/2018 11:59 PM EDT Hospital Encounter Mammography/[place] [address] MD [address] [place] [phone] Screening breast examination Discharge Disposition: Home [...] 2 10/11/2016 11/25/2019 desonide (DESOWEN) 0.05 % CreamIndications:[place] titis,Seborrheic dermatitis Once daily to the forehead [...] PM EDT Office Visit Hematology/Oncology at [address] [phone] Jeffery Sanz MD [facility] DR HEMATOLOGY [place] [address] Mary Nails APRN [address] [place] [address] DR MEDICAL ONCOLOGY [place], [place] [address] 01/01/2025 2:30 PM EDT Infusion Hematology Oncology at [address] [phone] 01/14/2025 11:00 AM EDT Laboratory Appointment Lab [address] [phone] 01/14/2025 1:[address] [place] [phone] Regino Carolina MD [facility] [place] [address] 01/14/2025 2:00 PM EDT Office Visit General Surgery at [facility] [place] [address] Regino Carolina MD [facility] [place] [address] documented as of this encounter Procedures Procedure [...] encounter Visit Diagnoses Diagnosis Screening breast examination Other screening breast examination documented in this encounter Care Teams Armored Car Guard Relationship Specialty Start Date End Date Maria Esther Street MD [address] [place] [address] [place] [phone] PCP - General Family Medicine 10/11/16 09/22/19 documented as of this encounter
--- OUTSIDE RECORDS SUMMARY | 2024-05-10 15:00 | XMS_ITS | Encounter Summary ---
[place] [address] Care Team Providers Care Farm Equipment Engine Mechanic Name Role Phone Steph Schulz MD Primary Care Provider [phone] Encounter Details Date Type Department Care Team (Latest Contact Info) Description 03/07/2011 10:44 AM EST - 03/07/2011 11:59 PM [facility] Hospital [place] [address] CLINIC, Steph Cason MD [address] [place], [place] [phone] Discharge Disposition: Home Social History Tobacco Use [...] PM EDT Office Visit Hematology/Oncology at [address] [phone] Jeffery Sanz MD [facility] DR HEM[place] [address] Mary Nails APRN [address] [place] [address] DR MEDICAL ONCOLOGY [place], [place] [phone] 01/01/2025 2:30 PM EDT Infusion Hematology Oncology at [address] [phone] 01/14/2025 11:00 AM EDT Laboratory Appointment Lab 3[place] [phone] 01/14/2025 1:[address] [place] [phone] Regino Carolina MD [facility] [place] [address] 01/14/2025 2:00 PM EDT Office [place] [phone] Regino Carolina MD [facility] [place] [address] documented as of this encounter Procedures Procedure [...] on filedocumented in this encounter Care Teams Farm Equipment Engine Mechanic Relationship Specialty Start Date End Date Steph Schulz MD [address] [place] [address] PCP - General 03/09/10 12/24/13 documented as of this encounter
--- OUTSIDE RECORDS SUMMARY | 2024-05-10 15:00 | XMS_ITS | Encounter Summary ---
Author Organization [facility] Address [facility] [place] [address] Care Team Providers Care Linen Sorter Name Role Phone Villa Krause MD Primary Care Provider Encounter Details Date Type Department Care Team (Late st Contact Info) Description 04/28/2014 2:21 PM EST - 04/28/2014 11:59 PM EST Hospital En[place] [address] Social History Tobacco Use Types Packs/Day Years Used Date Smoking Tobacco: Never Sex and Gender Information Value Date Recorded Sex Assigned at Not on file Gender Identity Not on file Sexual Orientation Not on file documented as of this encounter Medications at Time of Discharge Medication Sig Dispensed Refills Start Date End Date desonide (DESOWEN) 0.05 % CreamIndications:[place] titis,Seborrheic dermatitis Once daily to the forehead [...] PM EDT Office Visit Hematology/Oncology at [address] [phone] Jeffery Sanz MD [facility] DR H[place] [address] Mary Nails PIG FARMER [address] [place] [address] DR MEDICAL ONCOLOGY [place], [place] [phone] 01/01/2025 2:30 PM EDT Infusion Hematology Oncology at [address] [phone] 01/14/2025 11:00 AM EDT Laboratory Appointment Lab 3[place] [phone] 01/14/2025 1:[address] [place] [phone] Regino Carolina MD [facility] [place] [address] 01/14/2025 2:00 PM EDT Office Visit [place] [phone] Regino Carolina MD [facility] [place] [address] documented as of this encounter Procedures Procedure [...] on filedocumented in this encounter Care Teams Linen Sorter Relationship Specialty Start Date End Date Villa Krause MD [address] [place] [address] PCP - General 12/25/13 10/10/16 documented as of this encounter
--- OUTSIDE RECORDS SUMMARY | 2024-05-10 15:00 | XMS_ITS | Encounter Summary ---
Author Organization [facility] [place] [address] Care Team Providers Care Collection Advisor Name Role Phone Maria Esther Street MD Primary Care Provider [phone] Reason for Visit * Reason Comments Skin Check Encounter Details Date Type Department Care Team (Late st Contact Info) Description 11/15/2018 2:15 PM EDT Office Visit Dermatology at [facility] [address] [place] [address] Estela Cavazos MD [facility] [place] [address] Reyes angioma; SK (seborrheic keratosis); Lentigines; Multiple [...] back,??January 2010 Lentigines Seborrheic Keratosis HPI Ms. Maggie is a 73 y.o. year old female. [...] MD. Estela Cavazos MD Section of Dermatology [facility] documented in this encounter Plan of Treatment Upcoming Encounters Date Type Department Care Team (Late st Contact Info) Description 01/01/2025 2:00 PM EDT Office Visit Hematology/Oncology at [address] [phone] Jeffery Sanz MD [facility] DR [place] [address] Mary Nails APRN [address] [place] [address] DR MEDICAL ONCOLOGY [place], [place] [phone] 01/01/2025 2:30 PM EDT Infusion Hematology Oncology at [address] [phone] 01/14/2025 11:00 AM EDT Laboratory Appointment Lab [address] [place] [phone] 01/14/2025 1:[address] [place] [address] Regino Carolina MD [facility] [place] [address] 01/14/2025 2:00 PM EDT Office [place] [address] Regino Carolina MD [facility] [place] [address] documented as of this encounter Visit Diagnoses Diagnosis Reyes angioma Nevus, non-neoplastic SK (seborrheic keratosis) Other seborrheic keratosis Lentigines Other dyschromia Multiple benign nevi Benign neoplasm of skin, site unspecified documented in this encounter Care Teams Collection Advisor Relationship Specialty Start Date End Date Maria Esther Street MD [address] [place] [address] [place] [address] PCP - General Family Medicine 10/11/16 09/22/19 documented as of this encounter
== END 2024-05-10 15:01 ==
LOC: DI 14:47
PROVIDERS: PCP Nurse Practitioner Family; Visit Provider Nurse Practitioner Family
DX: S22.050A Wedge compression fracture of T5-T6 vertebra, initial encounter for closed fracture (principal); S22.070A Wedge compression fracture of T9-T10 vertebra, initial encounter for closed fracture; X58.XXXA Exposure to other specified factors, initial encounter; M43.16 Spondylolisthesis, lumbar region
CPT/HCPCS: 72072; 72110

== ENCOUNTER 2024-08-06 03:48 | Outpatient (CLI) | payer MEDICARE, BC, SELFPAY ==
[2024-08-06 12:59] LABS: Vitamin D 25 Total 28 ng/mL (30-100)
== END 2024-08-06 03:49 | disposition home or self-care (01) ==
LOC: LOS 03:48
PROVIDERS: PCP Nurse Practitioner Family; Visit Provider Nurse Practitioner Family
DX: E55.9 Vitamin D deficiency, unspecified (principal)
CPT/HCPCS: 36415; 82306

== ENCOUNTER 2025-01-02 04:03 | Outpatient (CLI) | payer MEDICARE, BC, SELFPAY ==
--- NOTE | 2025-01-02 | DI.DEXA_ITS ---
Exam(s) XR DEXA BONE DENSITY W/WO [place] EXAM: XR DEXA BONE DENSITY W/WO [place] CLINICAL HISTORY: LT BREAST CA C50.412 Z17.0 OSTEOPOROSIS M81.0 SENIOR CARE AROMATASE INHIBITOR TECHNIQUE: COMPARISON: CR XR DEXA BONE DENSITY W/WO [place] from 12/22/2022 FINDINGS: Lateral Spine Image: Unremarkable. No compression deformities identified. Left hip: Total T-Score: -2.2. This compares to -2.1 on the prior examination. Total Z-Score: -0.2 T- and Z-scores: Findings are consistent with osteopenia. Lumbar Spine: Total T-Score: -1.2. This compares to -1.3 on the prior examination. Total Z-Score: 1.3 T- and Z-scores: Findings are consistent with osteopenia. IMPRESSION: No evidence of osteoporosis.
== END 2025-01-02 04:23 ==
LOC: DI 04:03
PROVIDERS: PCP Nurse Practitioner Family; Visit Provider Internal Medicine Hematology & Oncology
DX: C50.412 Malignant neoplasm of upper-outer quadrant of left female breast (principal); Z79.811 Long term (current) use of aromatase inhibitors; M81.0 Age-related osteoporosis without current pathological fracture
CPT/HCPCS: 77080

== ENCOUNTER 2025-01-08 01:56 | Outpatient (CLI) | payer MEDICARE, BC, SELFPAY ==
[2025-01-08 11:40] LABS: ALT 33 U/L (14-59); AST 27 U/L (15-37); Albumin 3.6 g/dL (3.4-5.0); Alkaline Phosphatase 91 U/L (46-116); Anion Gap 10.1 mmol/L (3-11); BUN 16 mg/dL (7-18); Bilirubin, Total 0.5 mg/dL (0.2-1.0); CO2 26.9 mmol/L (21.0-32.0); Calcium 9.1 mg/dL (8.5-10.1); Chloride 98 mmol/L (98-107); Estimated GFR 88.47 (mL/min/1.73m2); Glucose 156 mg/dL (74-106); Potassium 3.6 mmol/L (3.5-5.1); Sodium 135 mmol/L (136-145); Total Protein 6.4 g/dL (6.4-8.2)
== END 2025-01-08 01:57 | disposition home or self-care (01) ==
PROVIDERS: Internal Medicine Hematology & Oncology; PCP Nurse Practitioner Family; Visit Provider Nurse Practitioner Family
DX: C50.912 Malignant neoplasm of unspecified site of left female breast (principal); Z17.0 Estrogen receptor positive status [ER+]
CPT/HCPCS: 36415; 80053

== ENCOUNTER 2025-03-23 14:23 | Emergency (ER) | payer MEDICARE, BC, SELFPAY ==
[2025-03-23 14:28] VITALS: BP 185/106; PULSE 75; RESP 15; TEMP 36.7; O2SAT 95
--- NOTE | 2025-03-23 15:15 | DI.CT_ITS ---
Exam(s) CT CHEST WO EXAM: CT CHEST WO CLINICAL HISTORY: sternal CP and axillar pain after fall. TECHNIQUE: Multi planar reconstructions were performed. CONTRAST MATERIAL: None COMPARISON: CR XR DEXA BONE DENSITY W/WO [place] from 12/22/2022 CR XR CHEST 2V PA LATERAL from 01/20/2023 FINDINGS: CHEST: LUNGS: Mild bilateral hyperinflation. No confluent infiltrates nor pleural effusions. Benign-appearing mild increased markings noted in both lung daniel as well as partially calcified scarring in the right lung apex. MEDIASTINUM: There is a in nondisplaced fracture of the anterior cortex of the sternum, best seen on the sagittal reconstructed views and located 1.7 cm below the angle of Heath. There is no retrosternal nor mediastinal hematoma. There is no obvious hilar nor mediastinal adenopathy. No axillary adenopathy. CARDIAC: Heart size is upper normal. There is, however, a pericardial effusion at the cardiac base which exhibits maximum thickness of 15 mm.The diameter of the ascending thoracic aorta is enlarged, measuring 4 cm. The diameter of the mid aortic arch is upper normal as is the descending thoracic aorta diameter. Cannot assess for dissection without IV contrast. VISUALIZED UPPER ABDOMEN:No adrenal masses nor ascites. Visualized spleen normal size. The gallbladder is surgically absent and there is pneumobilia within intrahepatic ducts. OSSEOUS: There is a nonacute appearing fracture of the right 11th rib. There is some height loss of the T10 vertebral body mild anterior wedging and not acute appearance.Appears unchanged from lateral x-ray of DEXA scan performed December 2022.. IMPRESSION: 1. There is a nondisplaced fracture involving the anterior cortex of the sternum 17 mm below the angle of Heath. No associated retrosternal nor mediastinal hematoma nor evidence of lung contusion or pneumothorax. There are no acute rib fractures identified. There is a nonacute appearing fracture of the right 11th rib. 2. Mild increased markings both lung daniel but no evidence of significant lung contusion or pleural effusion nor pneumothorax. 3. Other findings as above. Called by myself to ER provider 03/23/2025 at 4:12 p.m. RADIATION DOSE DELIVERED: 90.15mGy.cm Total DLP DATA REPOSITORY: All CT scans at this facility are submitted to the National Radiology Data Registry (NRDR) Dose Index Registry (DIR) with the [employer] (ACR). RADIATION OPTIMIZATION: All CT scans at this facility use at least one of these dose optimization techniques: automated exposure control; mA and/or kV adjustment per patient size (includes targeted exams where dose is matched to clinical indication); or iterative reconstruction.
--- NOTE | 2025-03-23 15:27 | ED.GENADUL_ITS ---
Discharge Plan Disposition Patient Disposition: Home Discharge Details Clinical Impression: Sternal fracture Primary Care Provider: Zeny James ED Provider: Alice Shafer Home Meds and New Rx's Prescriptions: No Action hydrochlorothiazide 25 mg tablet 25 mg PO DAILY Qty: 90 3RF magnesium oxide 500 mg capsule 500 mg PO DAILY anastrozole 1 mg tablet 1 mg PO DAILY sennosides-docusate sodium 8.6-50 mg capsule 1 tab-cap PO QHS digestive enzymes Capsule 3 - 4 cap PO AC Rx Instructions: 3 tabs with meals and 1 tab with snacks ferrous sulfate [iron] 325 mg (65 mg iron) tablet 325 mg PO .3x/week Prolia 60 mg/mL syringe 60 mg subcut [id number] Ca cmb no.1-vit [id number]-RM-B12 120-1,000-10 mg-unit-mg tablet 1 tab PO DAILY vitamin B complex [B-Complex] 1 EACH tablet 1 ea PO DAILY omega 0-xsh-xej-fish oil [Fish Oil] 1,000 mg (120 mg-180 mg) capsule 1 cap PO DAILY albuterol sulfate [ProAir HFA] 90 mcg/actuation HFA aerosol inhaler 2 puff INHALATION BID PRN (Reason: shortness of breath or wheezing) Qty: 18 4RF fluticasone propion-salmeterol [Wixela Inhub] 500-50 mcg/dose blister with device 1 inh IH DAILY Qty: 60 5RF pravastatin 20 mg tablet 20 mg PO DAILY Qty: 90 3RF cholecalciferol (vitamin D3) 75 mcg (3,000 unit) tablet 3,000 unit PO DAILY Qty: 90 3RF omeprazole 20 mg capsule,delayed release(DR/EC) 20 mg PO DAILY Qty: 90 3RF vitamin E 400 unit Capsule 400 unit PO DAILY Centrum Silver Women 8 mg iron-400 mcg-300 mcg Tablet 1 tab PO DAILY Discharge Instructions Instructions: Sternal Fracture (DC) Additional Instructions: Please call [facility] general surgery first thing in the morning to schedule follow- up appointment. There is a fracture of your sternum. I recommend that you continue to use Tylenol every 6 hours as needed for discomfort. It may take 8 to 12 weeks for your sternum to heal. Please avoid lifting/pushing/pulling any weights. Limit exercise until you are cleared by general surgery or your primary care provider. It is very important that you continue to do deep breathing exercises to prevent pneumonia. Return to emergency care if you develop new chest pain, difficulty breathing, episodes of passing out, palpitations, or if you are very worried and need to be rechecked again immediately Stand Alone Forms: Portal Information Discharge Data Discharge Date/Time-TO BE ENTERED AT DEPARTURE: 03/23/25 17:38 HPI General Date/Time Provider Initiated Documentation: 03/23/25 14:42 . HPI Narrative: Maricruz is a 79-year-old female presents emergency department today for evaluation of breastbone pain after fall. She reports that she was carrying a cooler on March 12 when she slipped, falling directly on her chest on the cooler. Denies preceding symptoms, syncope/loss of consciousness, neck pain, back pain, extremity injury. She has been managing pain with Tylenol taken at night. Pain is described as a consistent aching with sharp pains with certain movements. She also reports some mild discomfort under both armpits with certain movements and with palpation. Denies headache, dizziness, vision changes, difficulty swallowing, shortness of breath, cough/wheeze, nausea/vomiting, change in bowel or bladder function, extremity weakness/numbness, decreased range of motion to upper or lower extremities. She does have a history of double mastectomy, breast cancer x 2, Whipple procedure, well-controlled asthma, HTN, HLD, GERD, and osteoporosis. Denies history of intrathoracic surgery. Related Data Home Medications ?Medication ?Instructions ?Recorded ?Confirmed vitamin B complex (B-Complex 1 ea PO DAILY 01/28/13 tablet) [id number] 8 mg-folic 400 1 tab PO DAILY 04/1903/23/25 mcg-K 50 mcg-lutein 300 mcg tablet (Centrum Silver Women) vitamin E 268 mg (400 unit) capsule 400 unit PO DAILY 04/19/18 03/23/25 omega 6-mtx-kzk-fish oil 1,000 mg 1 cap PO DAILY 02/1303/23/25 (120 mg-180 mg) capsule (Fish Oil) magnesium oxide 500 mg capsule 500 mg PO DAILY 0 03/23/25 anastrozole 1 mg tablet 1 mg PO DAILY 11/23/2003/23 sennosides 8.6 mg-docusate sodium 1 tab-cap PO QHS 01/0503/23/25 50 mg capsule digestive enzymes 3 - 4 cap PO AC 11/25/2011/08 denosumab 60 mg/mL subcutaneous 60 mg subcut [id number] 02/09/22 03/23/25 syringe (Prolia) calcium b no.1-vit R6-I7-CK-B12 1 tab PO DAILY 01/1303/23/25 120 mg-1,000 unit-10 mg tablet ferrous sulfate 325 mg (65 mg 325 mg PO .3x/week 01/1303/23/25 iron) tablet (iron) albuterol sulfate 90 mcg/actuation 2 puff inhalation B ID PRN 11/01/23 03/23/25 aerosol inhaler (ProAir HFA) shortness of breath or wh eezing #18 grams fluticasone 500 mcg-salmeterol 50 1 inh inhalation MATILDA LY #60 ea 03/04/24 03/23/25 mcg/dose blistr powdr for inhalation (Wixela Inhub) pravastatin 20 mg tablet 20 mg PO DAILY #90 tabs 07/1703/23/25 cholecalciferol (vitamin D3) 75 3,000 unit PO DAILY #9 0 tabs 08/16/24 03/23/25 mcg (3,000 unit) tablet hydrochlorothiazide 25 mg tablet 25 mg PO DAILY #90 ta bs 12/09/24 03/23/25 omeprazole 20 mg capsule,delayed 20 mg PO DAILY #90 ca ps 02/10/25 03/23/25 release Previous Rx's ?Medication ?Instructions ?Recorded albuterol sulfate 90 mcg/actuation 2 puff inhalation B ID PRN 11/01/23 aerosol inhaler (ProAir HFA) shortness of breath or wh eezing #18 grams fluticasone 500 mcg-salmeterol 50 1 inh inhalation MATILDA LY #60 ea 03/04/24 mcg/dose blistr powdr for inhalation (Wixela Inhub) pravastatin 20 mg tablet 20 mg PO DAILY #90 tabs 07/17 08/09 cholecalciferol (vitamin D3) 75 3,000 unit PO DAILY #9 0 tabs 08/16/24 mcg (3,000 unit) tablet hydrochlorothiazide 25 mg tablet 25 mg PO DAILY #90 ta bs 12/09/24 omeprazole 20 mg capsule,delayed 20 mg PO DAILY #90 ca ps 02/10/25 release Allergies Allergy/AdvReac Type Severity Reaction Status Date / Time house dust mite Allergy Asthma Verified 03/23/25 14:33 pollen extracts Allergy Asthma Verified 03/23/25 14:33 amlodipine AdvReac Intermediate Other (See Verified 03/23/25 14:33 Comment) General Stated Complaint: Orthopedic STEPHANIE: 4 Exam Const General: cooperative, healthy appearing, comfortable, no acute distress and well developed Nutritional Appearance: average body habitus Orientation: alert and oriented x3 Chest Chest: normal inspection of the chest, no crepitus, no masses, tenderness (and under bilat axillae) sternum and No rash Resp Effort & Inspection: normal respiratory effort and able to speak in complete sentences Auscultation: clear to auscultation bilaterally Cardio Rate: regular rate Rhythm: regular rhythm GI Inspection: normal to inspection Palpation: soft and nontender Back/Spine/Pelvis Cervical Spine: normal cervical lordosis Skin General skin exam: no rashes or lesions noted Trauma: no lacerations or abrasions Course Vital Signs Vital signs: Vital Signs Temperature 36.7 C 03/23/25 14:28 Pulse 75 03/23/25 14:28 Respiratory Rate 15 03/23/25 14:28 Blood Pressure 185/106 H 03/23/25 14:28 Pulse Oximetry 95 03/23/25 14:28 Temperature 36.7 C 03/23/25 14:28 Temperature Source Oral 03/23/25 14:28 Pulse 75 03/23/25 14:28 Respiratory Rate 15 03/23/25 14:28 Blood Pressure 185/106 H 03/23/25 14:28 Blood Pressure Position Sitting 03/23/25 14:28 Pulse Oximetry 95 03/23/25 14:28 Oxygen Delivery Method Room Air 03/23/25 14:28 Oxygen Flow Rate 0 03/23/25 14:28 Pain Level 6 03/23/25 14:28 Medical Decision Making Maricruz is a 79-year-old female presents emergency department today for evaluation of breastbone pain after fall. She reports that she was carrying a cooler on March 12 when she slipped, falling directly on her chest on the cooler. Denies preceding symptoms, syncope/loss of consciousness, neck pain, back pain, extremity injury. She has been managing pain with Tylenol taken at night. Pain is described as a consistent aching with sharp pains with certain movements. She also reports some mild discomfort under both armpits with certain movements and with palpation. Denies headache, dizziness, vision changes, difficulty swallowing, shortness of breath, cough/wheeze, nausea/vomiting, change in bowel or bladder function, extremity weakness/numbness, decreased range of motion to upper or lower extremities. She does have a history of double mastectomy, breast cancer x 2, Whipple procedure, well-controlled asthma, HTN, HLD, GERD, and osteoporosis. Denies history of intrathoracic surgery. Physical exam very reassuring. Mild tenderness to palpation along sternum and under bilateral axilla. No overlying skin lesions/ecchymosis, crepitus, deformity, or flail chest noted. Easy work of breathing, lungs and clear bilaterally. Normal heart sounds, regular rate and rhythm. No C- spine/T-spine/L-spine step-off/tenderness/deformity. DDx includes was not limited to: Sternal fracture, costochondritis/chest wall injury, rib fracture. As it has been 1-1/2 weeks since the incident, low suspicion for cardiac contusion/troponin leak, pulmonary contusion, esophageal rupture, hemothorax/pneumothorax, or vascular injury. I independently interpreted the following tests: EKG shows sinus rhythm rate 71, Q waves unchanged from previous, no changes consistent with acute ischemia. CT chest performed, significant for nondisplaced fracture involving the anterior cortex of the sternum 17 mm below the angle of Heath. Discussed case with Dr. Rodriguez, ED attending. Reviewed guidelines, as patient is hemodynamically stable and pain is able to be well-controlled with Tylenol with no intrathoracic injuries noted, patient appropriate for outpatient management. Discussed discharge instruction with patient, including importance of deep breathing to prevent pneumonia, use of Tylenol, and red flags indicate need for return to emergency care. Recommend rest until cleared by primary care or general surgery. General surgery referral placed. Imaging Data Radiologic Study: Radiologist's impression: Exam(s) CT CHEST WO EXAM: CT CHEST WO CLINICAL HISTORY: sternal CP and axillar pain after fall. TECHNIQUE: Multi planar reconstructions were performed. CONTRAST MATERIAL: None COMPARISON: CR XR DEXA BONE DENSITY W/WO [place] from 12/22/2022 CR XR CHEST 2V PA LATERAL from 01/20/2023 FINDINGS: CHEST: LUNGS: Mild bilateral hyperinflation. No confluent infiltrates nor pleural effusions. Benign-appearing mild increased markings noted in both lung daniel as well as partially calcified scarring in the right lung apex. MEDIASTINUM: There is a in nondisplaced fracture of the anterior cortex of the sternum, best seen on the sagittal reconstructed views and located 1.7 cm below the angle of Heath. There is no retrosternal nor mediastinal hematoma. There is no obvious hilar nor mediastinal adenopathy. No axillary adenopathy. CARDIAC: Heart size is upper normal. There is, however, a pericardial effusion at the cardiac base which exhibits maximum thickness of 15 mm.The diameter of the ascending thoracic aorta is enlarged, measuring 4 cm. The diameter of the mid aortic arch is upper normal as is the descending thoracic aorta diameter. Cannot assess for dissection without IV contrast. VISUALIZED UPPER ABDOMEN:No adrenal masses nor ascites. Visualized spleen normal size. The gallbladder is surgically absent and there is pneumobilia within intrahepatic ducts. OSSEOUS: There is a nonacute appearing fracture of the right 11th rib. There is some height loss of the T10 vertebral body mild anterior wedging and not acute appearance.Appears unchanged from lateral x-ray of DEXA scan performed December 2022.. IMPRESSION: 1. There is a nondisplaced fracture involving the anterior cortex of the sternum 17 mm below the angle of Heath. No associated retrosternal nor mediastinal hematoma nor evidence of lung contusion or pneumothorax. There are no acute rib fractures identified. There is a nonacute appearing fracture of the right 11th rib. 2. Mild increased markings both lung daniel but no evidence of significant lung contusion or pleural effusion nor pneumothorax. 3. Other findings as above. 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 denies she is diabetic Invasive lobular carcinoma of right breast in female (~2000) S/p chemo, radiation, mastectomy Invasive lobular carcinoma of left breast in female (~11/2019) S/p total mastectomy Basal cell carcinoma Right posterior calf 2020, left nasal sidewall 2022 Surgical History S/P Mohs surgery for basal cell carcinoma (02/20/23) Hx of cataract removal with insertion of prosthetic lens H/O Whipple procedure (03/23/20) Pancreatectomy, partial gastrectomy with pancreaticojejunostomy, cholecystectomy History of pancreatectomy (03/23/20) Whipple,-partial H/O total mastectomy of left breast (12/20/19) History of esophagogastroduodenoscopy (EGD) (~2012) History of modified radical mastectomy of right breast (02/06/01) S/P colonoscopy (01/2024) History of tonsillectomy Family History (Updated 02/22/24 @ 09:28 by Olivia Pittman) Mother , age 76 Depression Hypertension Father , age 68 Heart disease Hyperlipidemia Alcohol abuse Hypertension Sister Hyperlipidemia Breast cancer In her 50s Brother Depression Heart disease Hyperlipidemia Stroke Substance abuse Alcohol abuse Hypertension Myocardial infarction Maternal Grandfather Stroke Maternal Grandmother No problems noted. Paternal Grandfather No problems noted. Paternal Grandmother , At 92 Osteoporosis Son Adopted Alcohol use disorder Depression Son Adopted Son Adopted Social History (Updated 02/22/24 @ 09:25 by Olivia Pittman) Smoking/Tobacco Use Status: Never Second Hand Exposure: Yes Smoking risk assessment performed?: Yes Alcohol Intake: current Alcohol Intake frequency: a few times a month Alcohol type: wine Adopted: No Caregiver/Support person: No Foster care: No Household members: none Housing: house Number of Children: 3 number of grandchildren: 3 Communication Needs: None Education Level: college Details: BA Do you need help understanding health information?: Never current occupation: retired Pets and animals: No Sexually active: No Do you think of yourself as: straight/heterosexual Current gender identity: female What is your relationship status?: How often do you talk on the phone with friends or family?: three or more times per week How often do you get together with friends or relatives?: three or more times per week How often do you attend mormonism or samaritan services?: 4 or more times per year Do you belong to any clubs or organized social groups?: yes Panel score (0-1 are the most socially isolated patients): 3 What type of physical activity do you participate in: walking and other Details: wellness, bone-building Duration: 45-60 minutes/day Frequency: 3-4 times per week Marti/Buddhist: Confucianism Special marti needs: No Agree to transfusion: Yes Seatbelt use: always Helmet use: No Drive intox or ride w/intox 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: No Working smoke detector in home: Yes Carbon monox detector in home: Yes Firearms in home: No Do you feel safe at home: Yes Do you feel safe in your relationship?: Yes Victim of physical abuse: No Victim of emotional abuse: No Victim of sexual abuse: No Would you like helpful sources: No Additional Social history: live alone History History 6 Para Hx # Term Pregnancies Multiple births Hx # Pregnancies Ectopic pregnancies AB induced Hx Number of Living Children AB spontaneous 6 PAWSS Have you Been Recently Intoxicated or Drunk Within the Last 30 days?: No Have you Ever Experienced Previous Episodes of Alcohol Withdrawal?: No Have you ever Experienced Withdrawal Seizures?: No Have you ever Experienced Delirium Tremens(DT)s?: No Have you ever undergone Alcohol Rehabilitation Treatment (i.e, inpt ot outpatient treatment programs)?: No Have you ever Experienced Blackouts?: No Have you ever Combined Alcohol with other Downers within the last 90 days?: No Have you ever Combined Alcohol with any other Substance of Abuse during the last 90 days?: No Positive Blood Alcohol level on Presentation? [PCS.BAL]: No Evidence of Increased Autonomic Activity (i.e. HR>120, tremor, sweating, agitation, nausea)?: No Result: 0
--- NOTE | 2025-03-23 16:30 | RT.EKG_ITS ---
APPROVED REPORT Exam: Resting ECG Reason for Exam: sternal fx Patient Location: E HR:71 bpm ECG Measurements Heart Rate 71 AXIS IA 150 P 60 QRSd 91 QRS -32 QT 408 T 35 QTc 444 Conclusion Sinus rhythm, rate 71 No interval abnormalities No STEMI LVH, no priors available for comparison
[2025-03-23 17:37] VITALS: BP 169/82; PULSE 69; RESP 16; O2SAT 97
== END 2025-03-23 17:38 | disposition home or self-care (01) ==
PROVIDERS: Emergency Provider Nurse Practitioner Family; PCP Nurse Practitioner Family
DX: S22.20XA Unspecified fracture of sternum, initial encounter for closed fracture (principal); W01.198S Fall on same level from slipping, tripping and stumbling with subsequent striking against other object, sequela
CPT/HCPCS: 99283; 99284; 71250; 93005; 93010

== ENCOUNTER → 2025-03-25 09:57 | Outpatient (BNVA) | payer MEDICARE, BC, SELFPAY | PROVIDERS: PCP Nurse Practitioner Family; Referring Provider Nurse Practitioner Family; Visit Provider Student in an Organized Health Care Education/Training Program | DX: S22.20XA Unspecified fracture of sternum, initial encounter for closed fracture (principal); W01.198A Fall on same level from slipping, tripping and stumbling with subsequent striking against other object, initial encounter | CPT/HCPCS: 99213 ==